=== PATIENT | female | born 1965 | race Caucasian/White ===

== ENCOUNTER 2016-08-15 05:40 | Inpatient (IN) | payer MEDICARE ==
[~2016-08-15] VITALS: Ht 172.7 cm; Wt 81.7 kg
[~2016-08-15 05:40] MED LIST: AMLO5TAB4 PO; APIX2.5T PO; ASPI325T4 PO; ATROVENT HFA12.9 GM IH; CARV12.5 PO; CARV12.52 PO; CARV25TA2 PO; CIPR250T PO; CIPR250T30 PO; DARB60DI SQ; DOCU100C5 PO; FENO145T PO; FLUC100T4 PO; FLUT1DIS IH; FURO80TA3 PO; INSU100C4 SQ; INSU100I13 SQ; INSU100V8 SQ; LIPITOR80 MG PO; METO10TA81 PO; MORP15TA3 PO; MULT-237 PO; NIAC500T9 PO; NITR0.4T SL; ONDA4TAB10 PO; OXYC-250 PO; OXYC10TA PO; SEVE800T9 PO; SUCR1TAB PO; TICA90TA PO; TRAM50TA PO; [UNRECOGNIZED DRUG - OTHER]
[2016-08-15] MEDS ORDERED: ONDANSETRON PF 4 MG/2 ML VIAL. IV ONE (06:30)
[2016-08-15] MEDS ORDERED: fentaNYL PF VIAL 100 MCG/2 ML VIAL IV ONE (06:30)
[2016-08-15 06:38] LABS: BASO % 0 % (0-3); EOS % 4 % (0-3); HEMATOCRIT 34.9 % (36.0-47.0); HEMOGLOBIN 12.2 g/dL (12.0-15.5); LYMPH # 1.5 x10^3/uL (1.0-4.8); LYMPH % 10 % (24-48); MEAN CORPUSCULAR HEMOGLOBIN 32 pg (25-35); MEAN CORPUSCULAR HGB CONC 35 g/dL (31-37); MEAN CORPUSCULAR VOLUME 93 fL (79-100); MONO % 5 % (0-9); NEUT % 81 % (31-73); PLATELET COUNT 437 x10^3/uL (140-400); RED BLOOD COUNT 3.78 x10^6/uL (3.50-5.40); RED CELL DISTRIBUTION WIDTH 13.8 % (11.5-14.5); WHITE BLOOD COUNT 15.5 x10^3/uL (4.0-11.0)
--- NOTE | 2016-08-15 06:44 | EKG ---
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
[2016-08-15 06:46] LABS: CALCIUM 9.6 mg/dL (8.5-10.1); CREATININE 5.5 mg/dL (0.6-1.0); GFR 8.2; POTASSIUM 4.1 mmol/L (3.5-5.1)
[2016-08-15 06:48] LABS: C-REACTIVE PROTEIN 21.4 mg/L (0-3.3)
--- NOTE | 2016-08-15 07:23 | RAD ---
Indication ulcer and swelling. AP oblique and lateral views of the right foot were obtained. Note is made of a previous examination 12/04/2014. Amputation associated with the second and third metatarsals is noted similar to the previous exam. There has been some bony loss associated with the tuft of the first digit. This may reflect underlying infection, osteomyelitis. Soft tissue defect associated with the first digit is noted. Diffuse soft tissue swelling of the foot is additionally noted. IMPRESSION: Diffuse soft tissue swelling. Chronic surgical changes. Partial resorption of the tuft of the first digit when compared to an exam 12/04/2014. Underlying infection is not excluded
--- NOTE | 2016-08-15 08:21 | PHYS DOC ---
Past Medical History Past Medical History: Diabetes-Type I, Heart Disease, Hypertension, CT, Renal Failure Additional Past Medical Histor: 11 CT'S, VRE, MRSA Past Surgical History: Coronary Bypass Surgery, Hysterectomy, Lumbar Laminectomy, Other Additional Past Surgical Histo: bka blabber sling ,BRAIN SURGERY,X 4 CARDIAC STENTS, R arm graft & fistula Alcohol Use: None Drug Use: None Adult General Chief Complaint Chief Complaint: SKIN PROBLEM HPI HPI Patient is a 50 year old female who presents for 3-4 days of right foot pain, redness, toe ulceration that is gradually worsening. She was seen at outside emergency Department yesterday and given antibiotics for diabetic foot ulcer ( clindamycin and levofloxacin; she was given Rocephin prior to discharge). Since starting these oral antibiotics, she has multiple episodes of nausea and vomiting. Thus, she came here for evaluation due to outpatient management failure. States she has developed headache and ringing in her ears after vomiting, that are both improving at this time. She is a dialysis patient and missed her session yesterday due to hospital evaluation and not feeling well. She denies fever or chills, no injury, rash, fatigue, chest pain, dyspnea, abdominal pain. Review of Systems Review of Systems Constitutional: Denies fever or chills [] Eyes: Denies change in visual acuity, redness, or eye pain [] HENT: Denies nasal congestion or sore throat [] Respiratory: Denies cough or shortness of breath [] Cardiovascular: No additional information not addressed in HPI [] GI: Denies abdominal pain, nausea, vomiting, bloody stools or diarrhea [] : Denies dysuria or hematuria [] Musculoskeletal: Denies back pain [] Integument: Denies rash [] Neurologic: Denies focal weakness or sensory changes [] Endocrine: Denies polyuria or polydipsia [] Current Medications Current Medications Current Medications Medications (Trade) Dose Ordered Sig/Martin Start Time Stop Time Status Last Admin Dose Admin Fentanyl Citrate (Fentanyl 2ml Vial) 50 mcg 1X ONCE 08/15/16 06:30 08/15/16 06:31 DC 08/15/16 07:01 50 MCG Ondansetron HCl (Zofran) 4 mg 1X ONCE 08/15/16 06:30 08/15/16 06:31 DC 08/15/16 06:57 4 MG Allergies Allergies Allergies Coded Allergies Type Severity Reaction Last Updated Verified Sulfa (Sulfonamide Antibiotics) Allergy Intermediate 08/09/15 Yes meropenem Allergy Intermediate 08/09/15 Yes piperacillin Allergy Intermediate Rash 08/09/15 Yes strawberry Allergy Intermediate 08/09/15 Yes tazobactam Allergy Intermediate 08/09/15 Yes I S O L A T I O N *CONTACT* Allergy Unknown 01/08/16 Yes Physical Exam Physical Exam Constitutional: Well developed, well nourished, no acute distress, non-toxic appearance. [] HENT: Normocephalic, atraumatic, bilateral external ears normal, oropharynx moist, nose normal. [] Eyes: PERRLA, EOMI. [] Neck: Normal range of motion, supple. [] Cardiovascular:Heart rate regular rhythm [] Lungs & Thorax: Bilateral breath sounds clear to auscultation [] Abdomen: Bowel sounds normal, soft, no tenderness. [] Skin: Warm, dry, no erythema, no rash. [] Back: Normal range of motion. [] Extremities: Right lower extremity with surgically missing second and third toes ; 1 cm circular ulcerative wound to IP of great toe and crusted lesion to the tip of great toe with redness and tenderness to great toe and medial midfoot, no induration/fluctuance/crepitance.; Can flex/ex toes; Can dorsiflex/plantar flex ankle; No medial or lateral malleolar tenderness; SILT; dp pulses equal bilaterally Neurologic: Alert and oriented X 3, normal motor function, normal sensory function, no focal deficits noted. [] Psychologic: Affect normal, judgement normal, mood normal. [] Current Patient Data Vital Signs Vital Signs Date Time Temp Pulse Resp B/P Pulse Ox O2 Delivery O2 Flow Rate FiO2 08/15/16 07:01 20 98 Room Air 08/15/16 05:43 98.5 99 153/70 98.5 Lab Values Laboratory Tests Test 08/15/16 06:26 White Blood Count 15.5x10^3/uL (4.0-11.0) H Red Blood Count 3.78x10^6/uL (3.50-5.40) Hemoglobin 12.2g/dL (12.0-15.5) Hematocrit 34.9% (36.0-47.0) L Mean Corpuscular Volume 93fL (79-100) Mean Corpuscular Hemoglobin 32pg (25-35) Mean Corpuscular Hemoglobin Concent 35g/dL (31-37) Red Cell Distribution Width 13.8% (11.5-14.5) Platelet Count 437x10^3/uL (140-400) H Neutrophils (%) (Auto) 81% (31-73) H Lymphocytes (%) (Auto) 10% (24-48) L Monocytes (%) (Auto) 5% (0-9) Eosinophils (%) (Auto) 4% (0-3) H Basophils (%) (Auto) 0% (0-3) Neutrophils # (Auto) 12.6x10^3uL (1.8-7.7) H Lymphocytes # (Auto) 1.5x10^3/uL (1.0-4.8) Monocytes # (Auto) 0.8x10^3/uL (0.0-1.1) Eosinophils # (Auto) 0.6x10^3/uL (0.0-0.7) Basophils # (Auto) 0.0x10^3/uL (0.0-0.2) Segmented Neutrophils % 81% (35-66) H Band Neutrophils % 1% (0-9) Lymphocytes % 12% (24-48) L Monocytes % 3% (0-10) Eosinophils % 3% (0-5) Platelet Estimate Adequate (ADEQUATE) Erythrocyte Sedimentation Rate 81 (0-25) H Sodium Level 138mmol/L (136-145) Potassium Level 4.1mmol/L (3.5-5.1) Chloride Level 94mmol/L (98-107) L Carbon Dioxide Level 34mmol/L (21-32) H Anion Gap 10 (6-14) Blood Urea Nitrogen 45mg/dL (7-20) H Creatinine 5.5mg/dL (0.6-1.0) H Estimated GFR (Cockcroft-Gault) 8.2 Glucose Level 127mg/dL (70-99) H Calcium Level 9.6mg/dL (8.5-10.1) C-Reactive Protein, Quantitative 21.4mg/L (0-3.3) H Laboratory Tests 08/15/16 06:26 Laboratory Tests 08/15/16 06:26 EKG EKG EKG as interpreted by me as normal sinus rhythm, rate 86, no ST-T changes, normal intervals, no ectopy Radiology/Procedures Radiology/Procedures X-ray right foot as interpreted by me showing bony changes to great toe with soft tissue defect concerning for osteomyelitis Course & Med Decision Making Course & Med Decision Making Pertinent Labs and Imaging studies reviewed. (See chart for details) Electrolytes are unremarkable, however has elevated white blood cell count. X- ray shows bony changes concerning for osteomyelitis. Will admit for IV antibiotics and surgical evaluation. Discussed case with Dr. Delgadillo, who will admit. Dragon Disclaimer Dragon Disclaimer This electronic medical record was generated, in whole or in part, using a voice recognition dictation system. Departure Departure Impression: Primary Impression: Diabetic foot ulcer with osteomyelitis Additional Impression: End-stage renal disease on hemodialysis Disposition: ADMITTED INPATIENT Condition: STABLE Referrals: MAGDA ARROYO MD (PCP) Problem Qualifiers Fred VALENZUELA MD Aug 15, 2016 08:21
[2016-08-15] MEDS ORDERED: VANCOMYCIN PER PHARMACY MC PRN (08:30)
[2016-08-15] MEDS ORDERED: CLINDAMYCIN 900MG PREMIX 50 ML IV ONE (08:30)
[2016-08-15] MEDS ORDERED: LEVOFLOXACIN PER PHARMACY MC PRN ×2 (08:30→14:30)
[2016-08-15] MEDS ORDERED: ACETAMINOPHEN 325 MG TABLET. PO PRN (08:30)
[2016-08-15] MEDS ORDERED: VANCOMYCIN 2 GM in IV NORMAL SALINE 500ML BAG 500 ML IV ONE (09:00)
[2016-08-15] MEDS: METRONIDAZOLE 500mg PREMIX 100 ML IV SCH ×2 (09:08→22:02)
[2016-08-15 09:09] LABS: % EOS 3 % (0-5); PLT ESTIMATE ADEQUATE (ADEQUATE)
[2016-08-15 10:45] VITALS: BP 134/61
[2016-08-15] MEDS: fentaNYL PF VIAL 100 MCG/2 ML VIAL IV PRN ×6 (10:53→22:39)
[2016-08-15] MEDS ORDERED: CLINDAMYCIN 900MG PREMIX 50 ML IV SCH (14:00)
--- NOTE | 2016-08-15 14:28 | PDOC2 ---
CONSULT Date of Consult Date of Consult DATE: 08/15/16 TIME: 14:24 Reason for Consult Reason for Consult: ESRD Referring Physician Referring Physician: Elie Identification/Chief Complaint Chief Complaint Toe infecton Problems: Source Source: Chart review, Patient History of Present Illness Reason for Visit: as dictated Past Medical History Cardiovascular: CAD, CHF, HTN, MO, Hyperlipidemia Pulmonary: Asthma, COPD, Pneumonia CENTRAL NERVOUS SYSTEM: Other GI: GERD Heme/Onc: Anemia NOS Hepatobiliary: No pertinent hx Psych: No pertinent hx Musculoskeletal: Osteoarthritis Rheumatologic: Fibromyalgia Infectious disease: Other Renal/: Chronic renal failure Endocrine: Diabetes Past Surgical History Past Surgical History: CABG, Hysterectomy, Other Family History Family History: Diabetes, Hypertension Social History ALCOHOL: none Drugs: None Lives: with Family Current Problem List Problem List Problems Medical Problems: (1) Diabetic foot ulcer with osteomyelitis Status: Acute (2) End-stage renal disease on hemodialysis Status: Acute Current Medications Current Medications Current Medications Fentanyl Citrate (Fentanyl 2ml Vial) 50 mcg 1X ONCE IV Last administered on 07:01; Start 08/15/16 at 06:30; Stop 08/15/16 at 06:31; Status DC Ondansetron HCl (Zofran) 4 mg 1X ONCE IV Last administered on 08/15/16 06:57 ; Start 08/15/16 at 06:30; Stop 08/15/16 at 06:31; Status DC Ondansetron HCl (Zofran) 4 mg PRN Q8HRS PRN IV NAUSEA/VOMITING; Start 08/15/16 at 08:30; Stop 08/16/16 at 08:29 Fentanyl Citrate (Fentanyl 2ml Vial) 50 mcg PRN Q2HR PRN IV PAIN Last administered on 08/15/16 14:16; Start 08/15/16 at 08:30; Stop 08/16/16 at 08:29 Acetaminophen (Tylenol) 650 mg PRN Q4HRS PRN PO FEVER Last administered on 08/15 13:36; Start 08/15/16 at 08:30; Stop 08/16/16 at 08:29 Levofloxacin/ Dextrose 1 each 1 each PRN DAILY PRN MC SEE COMMENTS; Start 08/15 at 08:30 Clindamycin Phosphate 50 ml @ 100 mls/hr Q8HRS IV ; Start 08/15/16 at 14:00; Stop 08/15/16 at 14:00; Status DC Levofloxacin/ Dextrose 100 ml @ 100 mls/hr Q48H IV Last administered on 12:34; Start 08/15/16 at 09:00 Clindamycin Phosphate (Cleocin 900mg Premix) 50 ml @ 100 mls/hr 1X ONCE IV ; Start 08/15/16 at 08:30; Stop 08/15/16 at 08:32; Status DC Vancomycin HCl 1 each 1 each PRN DAILY PRN MC SEE COMMENTS; Start 08/15/16 at 08:30 Metronidazole 100 ml @ 100 mls/hr Q12HR IV Last administered on 08/15/16 09: 08; Start 08/15/16 at 09:00 Vancomycin HCl/ Sodium Chloride (Iv Sodium Chloride 0.9% 500ml Bag) 500 ml @ 250 mls/hr 1X ONCE IV Last administered on 08/15/16 09:09; Start 08/15/16 at 09:00; Stop 08/15/16 at 10:59; Status DC Active Scripts Active Eliquis (Apixaban) 2.5 Mg Tablet 2.5 Mg PO BID Morphine Sulfate Er (Morphine Sulfate) 15 Mg Tablet.er 15 Mg PO BID Reported Fluconazole 100 Mg Tablet 150 Mg PO WEEKLY Ciprofloxacin Hcl 250 Mg Tablet 250 Mg PO BID Tramadol Hcl 50 Mg Tablet 50 Mg PO Q6H PRN Percocet 10-325 Mg Tablet (Oxycodone/Acetaminophen) 1 Each Tablet 1-2 Tab PO PRN Q6HRS PRN Brilinta (Ticagrelor) 90 Mg Tablet 90 Mg PO BID Tricor (Fenofibrate Nanocrystallized) 145 Mg Tablet 1 Tab PO HS Lipitor (Atorvastatin Calcium) 80 Mg Tablet 80 Mg PO HS Niacin 500 Mg Tablet 500 Mg PO HS Lantus (Insulin Glargine,Hum.rec.anlog) 100 Unit/1 Ml Vial 10 Unit SQ HS PRN only if blood sugar >150 at bedtime. Novolog (Insulin Aspart) 100 Unit/1 Ml Cartridge 0 SQ TIDAC sliding scale Renvela (Sevelamer Carbonate) 800 Mg Tablet 800 Mg PO TIDWMEALS Take with meals Aspirin 325 Mg Tablet 325 Mg PO DAILY Furosemide 80 Mg Tablet 80 Mg PO BID Docusate Sodium 100 Mg Capsule 1 Cap PO PRN PRN Nitrostat (Nitroglycerin) 0.4 Mg Tab.subl 0.4 Mg SL PRN Q5MIN PRN Take as needed for chest pain Allergies Allergies: Coded Allergies: Sulfa (Sulfonamide Antibiotics) (Verified Allergy, Intermediate, 08/09/15) meropenem (Verified Allergy, Intermediate, 08/09/15) Tolerates ancef piperacillin (Verified Allergy, Intermediate, Rash, 08/09/15) Tolerates ancef strawberry (Verified Allergy, Intermediate, 08/09/15) tazobactam (Verified Allergy, Intermediate, 08/09/15) I S O L A T I O N *CONTACT* (Verified Allergy, Unknown, 01/08/16) 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 ROS Review of System GEN: no Fevers no Chills EYES: no Visual Complaints ENT: no EN Drainage no Hearing deficiets CVS: no Orthopnea no CP RESP: no SOB no SAVAGE GI: no Nausea no Vomiting : no Dysuria no Urgency HEME: no easy bruising no Palp Ly Nodes NEURO no Focal Weakness no Sz PSYCH: no Suicidal Ideation no Depression SKIN: no Rashes Rt Toe wound as noted ENDO: no Polyuria or Polydipsia no Hot/Cold Intolerance MU SK: no Arthraigia no Myalgia Physical Exam Physical Exam General Appearance: Awake Alert Oriented x 3 In no Distress Eyes: VIsion Unchanged Conjunctiva Normal EN: No EN Drainage Mucous Memb. moist Neck: no JVD no JVP Supple no Thyromegaly CVS: S1 S2 soft Murmur No Gallop No Rub +2 Edema Resp: no Rales no Rhonchi no Acc. Muscle use GI: BAS +ve NO Bruit Non Tender Non Distended : no CVA tenderness; no Suprapubic Tenderness SKIN: no Rashes Breast Exam deferred; Toe wound noted Mu.Sk: Adequate ROM no Muscle Atrophy, Left BKA Heme: Unable to palpate Obvious LAD no palp Splenomegaly NEURO: Good Strength and Tone Cranial Nerves II - XII grossly intact Psych: no Depressed no Active hallucination Vital Signs Vital Signs Date Time Temp Pulse Resp B/P Pulse Ox O2 Delivery O2 Flow Rate FiO2 08/15/16 14:16 Room Air 08/15/16 10:45 97.9 77 16 134/61 99 97.9 Assessment & Plan ESRD: Current FLuid and E-lyte status does not necessitate emergent need for Dialysis. Will re-evaluate for Dialysis in am and continue on TTSat schedule. Anemia: no Epogen ordered for now (hgb > 12) Transfuse with next HD as needed. HTN: Current BP meds reviewed. See orders for changes. Bone & Mineral: follow phos and alter binder regimen as needed Discussed Plan of Care and prognosis etc. at length with pt Labs Labs Laboratory Tests Test 08/15/16 06:26 08/15/16 11:48 White Blood Count 15.5x10^3/uL (4.0-11.0) Red Blood Count 3.78x10^6/uL (3.50-5.40) Hemoglobin 12.2g/dL (12.0-15.5) Hematocrit 34.9% (36.0-47.0) Mean Corpuscular Volume 93fL (79-100) Mean Corpuscular Hemoglobin 32pg (25-35) Mean Corpuscular Hemoglobin Concent 35g/dL (31-37) Red Cell Distribution Width 13.8% (11.5-14.5) Platelet Count 437x10^3/uL (140-400) Neutrophils (%) (Auto) 81% (31-73) Lymphocytes (%) (Auto) 10% (24-48) Monocytes (%) (Auto) 5% (0-9) Eosinophils (%) (Auto) 4% (0-3) Basophils (%) (Auto) 0% (0-3) Neutrophils # (Auto) 12.6x10^3uL (1.8-7.7) Lymphocytes # (Auto) 1.5x10^3/uL (1.0-4.8) Monocytes # (Auto) 0.8x10^3/uL (0.0-1.1) Eosinophils # (Auto) 0.6x10^3/uL (0.0-0.7) Basophils # (Auto) 0.0x10^3/uL (0.0-0.2) Segmented Neutrophils % 81% (35-66) Band Neutrophils % 1% (0-9) Lymphocytes % 12% (24-48) Monocytes % 3% (0-10) Eosinophils % 3% (0-5) Platelet Estimate Adequate (ADEQUATE) Erythrocyte Sedimentation Rate 81 (0-25) Sodium Level 138mmol/L (136-145) Potassium Level 4.1mmol/L (3.5-5.1) Chloride Level 94mmol/L (98-107) Carbon Dioxide Level 34mmol/L (21-32) Anion Gap 10 (6-14) Blood Urea Nitrogen 45mg/dL (7-20) Creatinine 5.5mg/dL (0.6-1.0) Estimated GFR (Cockcroft-Gault) 8.2 Glucose Level 127mg/dL (70-99) Calcium Level 9.6mg/dL (8.5-10.1) C-Reactive Protein, Quantitative 21.4mg/L (0-3.3) Glucose (Fingerstick) 100mg/dL (70-99) Laboratory Tests Test 08/15/16 06:26 08/15/16 11:48 White Blood Count 15.5x10^3/uL (4.0-11.0) Red Blood Count 3.78x10^6/uL (3.50-5.40) Hemoglobin 12.2g/dL (12.0-15.5) Hematocrit 34.9% (36.0-47.0) Mean Corpuscular Volume 93fL (79-100) Mean Corpuscular Hemoglobin 32pg (25-35) Mean Corpuscular Hemoglobin Concent 35g/dL (31-37) Red Cell Distribution Width 13.8% (11.5-14.5) Platelet Count 437x10^3/uL (140-400) Neutrophils (%) (Auto) 81% (31-73) Lymphocytes (%) (Auto) 10% (24-48) Monocytes (%) (Auto) 5% (0-9) Eosinophils (%) (Auto) 4% (0-3) Basophils (%) (Auto) 0% (0-3) Neutrophils # (Auto) 12.6x10^3uL (1.8-7.7) Lymphocytes # (Auto) 1.5x10^3/uL (1.0-4.8) Monocytes # (Auto) 0.8x10^3/uL (0.0-1.1) Eosinophils # (Auto) 0.6x10^3/uL (0.0-0.7) Basophils # (Auto) 0.0x10^3/uL (0.0-0.2) Segmented Neutrophils % 81% (35-66) Band Neutrophils % 1% (0-9) Lymphocytes % 12% (24-48) Monocytes % 3% (0-10) Eosinophils % 3% (0-5) Platelet Estimate Adequate (ADEQUATE) Erythrocyte Sedimentation Rate 81 (0-25) Sodium Level 138mmol/L (136-145) Potassium Level 4.1mmol/L (3.5-5.1) Chloride Level 94mmol/L (98-107) Carbon Dioxide Level 34mmol/L (21-32) Anion Gap 10 (6-14) Blood Urea Nitrogen 45mg/dL (7-20) Creatinine 5.5mg/dL (0.6-1.0) Estimated GFR (Cockcroft-Gault) 8.2 Glucose Level 127mg/dL (70-99) Calcium Level 9.6mg/dL (8.5-10.1) C-Reactive Protein, Quantitative 21.4mg/L (0-3.3) Glucose (Fingerstick) 100mg/dL (70-99) Images Images IMPRESSION: Diffuse soft tissue swelling. Chronic surgical changes. Partial resorption of the tuft of the first digit when compared to an exam 12/04/2014. Underlying infection is not excluded BEAR LÓPEZ MD Aug 15, 2016 14:28
[2016-08-15] MEDS ORDERED: MAGNESIUM SULFATE 2GM 50 ML IV PRN (14:30)
[2016-08-15] MEDS ORDERED: TRAMADOL 50 MG TABLET. PO PRN (14:30)
[2016-08-15] MEDS ORDERED: NITROGLYCERIN SUBLINGUAL 0.4 MG BOTTLE OF 25. SL PRN (14:30)
[2016-08-15] MEDS ORDERED: TICAGRELOR 90 MG TABLET. PO SCH (14:30)
[2016-08-15] MEDS ORDERED: VANCOMYCIN 1.75 GM in IV NORMAL SALINE 500ML BAG 500 ML IV ONE (14:30)
[2016-08-15] MEDS ORDERED: DEXTROSE 50% 25 GM / 50ML DISP.SYRIN. IV PRN (14:30)
[2016-08-15] MEDS: VANCOMYCIN PER PHARMACY MC PRN (14:37)
--- NOTE | 2016-08-15 14:38 | PDOC1 ---
History and Physical Date of Admission Date of Admission 08/15/16 Identification/Chief Complaint Chief Complaint right foot pain Problems: Source Source: Chart review, Patient History of Present Illness History of Present Illness HPI HPI Patient is a 50 year old female who presents for 3-4 days of right foot pain. Pt left leg has got BKA, small wound chronic as per pt. Right big toe has been swollen recently, with drainage, burning pain, erythema to leg. No fever, chills. She went to [facility] yesterday, was given clinda and levoquin, then has severe N/V, diarrhea, missed her HD on . HD TTS. no N/V, diarrhea today allergic to many abx including zosyn and meropenem with bleeding rash as per pt. on lantus sometimes at night, about 10u aspart tid. Past Medical History Cardiovascular: CAD, CHF, HTN, UT, Hyperlipidemia Pulmonary: Asthma, COPD, Pneumonia CENTRAL NERVOUS SYSTEM: Other GI: GERD Heme/Onc: Anemia NOS Hepatobiliary: No pertinent hx Psych: No pertinent hx Rheumatologic: Fibromyalgia Infectious disease: Other Renal/: Chronic renal failure Endocrine: Diabetes Past Surgical History Past Surgical History: CABG, Hysterectomy, Other Family History Family History: Diabetes, Hypertension Social History Smoke: No ALCOHOL: none Drugs: None Current Problem List Problem List Problems Medical Problems: (1) Diabetic foot ulcer with osteomyelitis Status: Acute (2) End-stage renal disease on hemodialysis Status: Acute Current Medications Current Medications Current Medications Medications (Trade) Dose Ordered Sig/Martin Start Time Stop Time Status Last Admin Dose Admin Acetaminophen (Tylenol) 650 mg PRN Q4HRS PRN 08/15/16 08:30 08/16/16 08:29 08/15/16 13:36 650 MG Clindamycin Phosphate (Cleocin 900mg Premix) 50 ml @ 100 mls/hr 1X ONCE 08/15/16 08:30 08/15/16 08:32 DC Fentanyl Citrate (Fentanyl 2ml Vial) 50 mcg PRN Q2HR PRN 08/15/16 08:30 08/16/16 08:29 08/15/16 14:16 50 MCG Levofloxacin/ Dextrose 100 ml @ 100 mls/hr Q48H 08/15/16 09:00 08/15/16 12:34 100 MLS/HR Levofloxacin/ Dextrose 1 each 1 each PRN DAILY PRN 08/15/16 08:30 Metronidazole 100 ml @ 100 mls/hr Q12HR 08/15/16 09:00 08/15/16 09:08 100 MLS/HR Ondansetron HCl (Zofran) 4 mg PRN Q8HRS PRN 08/15/16 08:30 08/16/16 08:29 Vancomycin HCl 1 each 1 each PRN DAILY PRN 08/15/16 08:30 Vancomycin HCl/ Sodium Chloride (Iv Sodium Chloride 0.9% 500ml Bag) 500 ml @ 250 mls/hr 1X ONCE 08/15/16 09:00 08/15/16 10:59 DC 08/15/16 09:09 250 MLS/HR Allergies Allergies Allergies Coded Allergies Type Severity Reaction Last Updated Verified Sulfa (Sulfonamide Antibiotics) Allergy Intermediate 08/09/15 Yes meropenem Allergy Intermediate 08/09/15 Yes piperacillin Allergy Intermediate Rash 08/09/15 Yes strawberry Allergy Intermediate 08/09/15 Yes tazobactam Allergy Intermediate 08/09/15 Yes I S O L A T I O N *CONTACT* Allergy Unknown 01/08/16 Yes ROS Review of System CONSTITUTIONAL: No fever or chills EYES: No recent changes SKIN: No rash or itching CARDIOVASCULAR: No chest pain, syncope, palpitations, or edema RESPIRATORY: No SOB or cough GASTROINTESTINAL: No nausea, vomiting or abdominal pain NEUROLOGICAL: No headaches or weakness ENDOCRINE: No cold or heat intolerance GENITOURINARY: No urgency or frequency of urination MUSCULOSKELETAL: No back pain or joint pain LYMPHATICS: No enlarged lymph nodes PSYCHIATRIC: No anxiety or depression Physical Exam Physical Exam GEN.: No apparent distress. Alert and oriented. HEENT: Head is normocephalic, atraumatic NECK: Supple. LUNGS: Clear to auscultation. HEART: RRR, S1, S2 present. Peripheral pulses intact ABDOMEN: Soft, nontender. Positive bowel sounds. EXTREMITIES: Without any cyanosis. left leg BKA. right foot big toes has an open wound, swelling ,erythema till mid leg, tenderness. NEUROLOGIC: Normal speech, normal tone PSYCHIATRIC: Normal affect, normal mood. SKIN: No ulcerations Vitals Vitals Vital Signs Date Time Temp Pulse Resp B/P Pulse Ox O2 Delivery O2 Flow Rate FiO2 08/15/16 14:16 Room Air 4/21/17 10:45 97.9 77 16 134/61 99 97.9 Labs Labs Laboratory Tests Test 08/15/16 06:26 08/15/16 11:48 White Blood Count 15.5x10^3/uL (4.0-11.0) Red Blood Count 3.78x10^6/uL (3.50-5.40) Hemoglobin 12.2g/dL (12.0-15.5) Hematocrit 34.9% (36.0-47.0) Mean Corpuscular Volume 93fL (79-100) Mean Corpuscular Hemoglobin 32pg (25-35) Mean Corpuscular Hemoglobin Concent 35g/dL (31-37) Red Cell Distribution Width 13.8% (11.5-14.5) Platelet Count 437x10^3/uL (140-400) Neutrophils (%) (Auto) 81% (31-73) Lymphocytes (%) (Auto) 10% (24-48) Monocytes (%) (Auto) 5% (0-9) Eosinophils (%) (Auto) 4% (0-3) Basophils (%) (Auto) 0% (0-3) Neutrophils # (Auto) 12.6x10^3uL (1.8-7.7) Lymphocytes # (Auto) 1.5x10^3/uL (1.0-4.8) Monocytes # (Auto) 0.8x10^3/uL (0.0-1.1) Eosinophils # (Auto) 0.6x10^3/uL (0.0-0.7) Basophils # (Auto) 0.0x10^3/uL (0.0-0.2) Segmented Neutrophils % 81% (35-66) Band Neutrophils % 1% (0-9) Lymphocytes % 12% (24-48) Monocytes % 3% (0-10) Eosinophils % 3% (0-5) Platelet Estimate Adequate (ADEQUATE) Erythrocyte Sedimentation Rate 81 (0-25) Sodium Level 138mmol/L (136-145) Potassium Level 4.1mmol/L (3.5-5.1) Chloride Level 94mmol/L (98-107) Carbon Dioxide Level 34mmol/L (21-32) Anion Gap 10 (6-14) Blood Urea Nitrogen 45mg/dL (7-20) Creatinine 5.5mg/dL (0.6-1.0) Estimated GFR (Cockcroft-Gault) 8.2 Glucose Level 127mg/dL (70-99) Calcium Level 9.6mg/dL (8.5-10.1) C-Reactive Protein, Quantitative 21.4mg/L (0-3.3) Glucose (Fingerstick) 100mg/dL (70-99) Laboratory Tests Test 08/15/16 06:26 08/15/16 11:48 White Blood Count 15.5x10^3/uL (4.0-11.0) Red Blood Count 3.78x10^6/uL (3.50-5.40) Hemoglobin 12.2g/dL (12.0-15.5) Hematocrit 34.9% (36.0-47.0) Mean Corpuscular Volume 93fL (79-100) Mean Corpuscular Hemoglobin 32pg (25-35) Mean Corpuscular Hemoglobin Concent 35g/dL (31-37) Red Cell Distribution Width 13.8% (11.5-14.5) Platelet Count 437x10^3/uL (140-400) Neutrophils (%) (Auto) 81% (31-73) Lymphocytes (%) (Auto) 10% (24-48) Monocytes (%) (Auto) 5% (0-9) Eosinophils (%) (Auto) 4% (0-3) Basophils (%) (Auto) 0% (0-3) Neutrophils # (Auto) 12.6x10^3uL (1.8-7.7) Lymphocytes # (Auto) 1.5x10^3/uL (1.0-4.8) Monocytes # (Auto) 0.8x10^3/uL (0.0-1.1) Eosinophils # (Auto) 0.6x10^3/uL (0.0-0.7) Basophils # (Auto) 0.0x10^3/uL (0.0-0.2) Segmented Neutrophils % 81% (35-66) Band Neutrophils % 1% (0-9) Lymphocytes % 12% (24-48) Monocytes % 3% (0-10) Eosinophils % 3% (0-5) Platelet Estimate Adequate (ADEQUATE) Erythrocyte Sedimentation Rate 81 (0-25) Sodium Level 138mmol/L (136-145) Potassium Level 4.1mmol/L (3.5-5.1) Chloride Level 94mmol/L (98-107) Carbon Dioxide Level 34mmol/L (21-32) Anion Gap 10 (6-14) Blood Urea Nitrogen 45mg/dL (7-20) Creatinine 5.5mg/dL (0.6-1.0) Estimated GFR (Cockcroft-Gault) 8.2 Glucose Level 127mg/dL (70-99) Calcium Level 9.6mg/dL (8.5-10.1) C-Reactive Protein, Quantitative 21.4mg/L (0-3.3) Glucose (Fingerstick) 100mg/dL (70-99) VTE Prophylaxis Ordered VTE Prophylaxis Devices: No VTE Pharmacological Prophylaxi: Yes Assessment/Plan Assessment/Plan 1. right foot cellulitis/osteo 2. left leg BKA 3. dm2 4. htn 5. H/O CAD post CABG 6. ESRD on HD tts plan: renal, id, ortho consult rakel butts vanco for now MRI right foot to rule out osteo, may need sx ssi cont home meds on eliquis, if plan sx, need hold QUIN BARRY MD Aug 15, 2016 14:38
[2016-08-15] MEDS ORDERED: FOLI0.8T3 PO (14:50)
[2016-08-15] MEDS ORDERED: CARV12.52 PO ×2 (14:50)
[2016-08-15] MEDS ORDERED: auryxia PO (14:50)
[2016-08-15 15:00] VITALS: BP 139/48
[2016-08-15] MEDS ORDERED: FLUCONAZOLE 100 MG TABLET. PO SCH (15:00)
--- NOTE | 2016-08-15 15:55 | RAD ---
PROCEDURE MR of the right forefoot HISTORY Open wound of the right 1st toe. 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 TECHNIQUE Routine multiplanar sequences are obtained. COMPARISON None FINDINGS There is absence of the 2nd and 3rd toes, at the level of the metatarsal shafts, presumably due to prior amputation. There is moderate motion degradation on the study. Bone marrow edema signal identified within the head and distal shaft of the proximal 1st phalanx. There is corresponding loss of fatty marrow signal on the T1 weighted images. Findings are compatible with osteomyelitis. Mild marrow edema identified at the base of the distal 1st phalanx, but without corresponding T1 signal loss, may therefore just represent reactive marrow edema. Mild fluid at the 1st IP joint, possibly infected. Visualized tendons are intact. No significant tendon sheath fluid. There is soft tissue edema and swelling of the foot, particularly at the forefoot. No evidence of large organized abscess although lack of intravenous contrast could limit detection of a smaller fluid collection. IMPRESSION 1. Findings are compatible with osteomyelitis involving the distal shaft and head of the proximal 1st phalanx. Marrow edema at the base of the distal 1st phalanx may just be reactive. 2. Mild 1st IP joint fluid, uncertain sterility. Electronically signed by: Felipe Resendez MD (Aug 15, 2016 15:54:27)
[2016-08-15] MEDS: MORPHINE ER 15 MG TABLET.ER PO SCH ×2 (16:17→22:49)
[2016-08-15] MEDS: FUROSEMIDE 80 MG TABLET. PO SCH (16:18)
[2016-08-15] MEDS: FLUCONAZOLE 100 MG TABLET. PO SCH (16:18)
[2016-08-15] MEDS: GENTAMICIN PER PHARMACY. MC PRN (16:24)
--- NOTE | 2016-08-15 16:26 | PDOC ---
ORTHO PROGRESS NOTES Vitals Vital Signs Date Time Temp Pulse Resp B/P Pulse Ox O2 Delivery O2 Flow Rate FiO2 08/15/16 15:00 98.4 79 18 139/48 98 Room Air 98.4 Labs Laboratory Tests Test 08/15/16 06:26 08/15/16 11:48 White Blood Count 15.5x10^3/uL (4.0-11.0) Red Blood Count 3.78x10^6/uL (3.50-5.40) Hemoglobin 12.2g/dL (12.0-15.5) Hematocrit 34.9% (36.0-47.0) Mean Corpuscular Volume 93fL (79-100) Mean Corpuscular Hemoglobin 32pg (25-35) Mean Corpuscular Hemoglobin Concent 35g/dL (31-37) Red Cell Distribution Width 13.8% (11.5-14.5) Platelet Count 437x10^3/uL (140-400) Neutrophils (%) (Auto) 81% (31-73) Lymphocytes (%) (Auto) 10% (24-48) Monocytes (%) (Auto) 5% (0-9) Eosinophils (%) (Auto) 4% (0-3) Basophils (%) (Auto) 0% (0-3) Neutrophils # (Auto) 12.6x10^3uL (1.8-7.7) Lymphocytes # (Auto) 1.5x10^3/uL (1.0-4.8) Monocytes # (Auto) 0.8x10^3/uL (0.0-1.1) Eosinophils # (Auto) 0.6x10^3/uL (0.0-0.7) Basophils # (Auto) 0.0x10^3/uL (0.0-0.2) Segmented Neutrophils % 81% (35-66) Band Neutrophils % 1% (0-9) Lymphocytes % 12% (24-48) Monocytes % 3% (0-10) Eosinophils % 3% (0-5) Platelet Estimate Adequate (ADEQUATE) Erythrocyte Sedimentation Rate 81 (0-25) Sodium Level 138mmol/L (136-145) Potassium Level 4.1mmol/L (3.5-5.1) Chloride Level 94mmol/L (98-107) Carbon Dioxide Level 34mmol/L (21-32) Anion Gap 10 (6-14) Blood Urea Nitrogen 45mg/dL (7-20) Creatinine 5.5mg/dL (0.6-1.0) Estimated GFR (Cockcroft-Gault) 8.2 Glucose Level 127mg/dL (70-99) Calcium Level 9.6mg/dL (8.5-10.1) C-Reactive Protein, Quantitative 21.4mg/L (0-3.3) Glucose (Fingerstick) 100mg/dL (70-99) Laboratory Tests Test 08/15/16 06:26 08/15/16 11:48 White Blood Count 15.5x10^3/uL (4.0-11.0) Red Blood Count 3.78x10^6/uL (3.50-5.40) Hemoglobin 12.2g/dL (12.0-15.5) Hematocrit 34.9% (36.0-47.0) Mean Corpuscular Volume 93fL (79-100) Mean Corpuscular Hemoglobin 32pg (25-35) Mean Corpuscular Hemoglobin Concent 35g/dL (31-37) Red Cell Distribution Width 13.8% (11.5-14.5) Platelet Count 437x10^3/uL (140-400) Neutrophils (%) (Auto) 81% (31-73) Lymphocytes (%) (Auto) 10% (24-48) Monocytes (%) (Auto) 5% (0-9) Eosinophils (%) (Auto) 4% (0-3) Basophils (%) (Auto) 0% (0-3) Neutrophils # (Auto) 12.6x10^3uL (1.8-7.7) Lymphocytes # (Auto) 1.5x10^3/uL (1.0-4.8) Monocytes # (Auto) 0.8x10^3/uL (0.0-1.1) Eosinophils # (Auto) 0.6x10^3/uL (0.0-0.7) Basophils # (Auto) 0.0x10^3/uL (0.0-0.2) Segmented Neutrophils % 81% (35-66) Band Neutrophils % 1% (0-9) Lymphocytes % 12% (24-48) Monocytes % 3% (0-10) Eosinophils % 3% (0-5) Platelet Estimate Adequate (ADEQUATE) Erythrocyte Sedimentation Rate 81 (0-25) Sodium Level 138mmol/L (136-145) Potassium Level 4.1mmol/L (3.5-5.1) Chloride Level 94mmol/L (98-107) Carbon Dioxide Level 34mmol/L (21-32) Anion Gap 10 (6-14) Blood Urea Nitrogen 45mg/dL (7-20) Creatinine 5.5mg/dL (0.6-1.0) Estimated GFR (Cockcroft-Gault) 8.2 Glucose Level 127mg/dL (70-99) Calcium Level 9.6mg/dL (8.5-10.1) C-Reactive Protein, Quantitative 21.4mg/L (0-3.3) Glucose (Fingerstick) 100mg/dL (70-99) Assessment and Plan MRI reviewed. R great toe osteo, R foot cellulitis OR 8am tomorrow UZMA JAIMES II, MD Aug 15, 2016 16:26
[2016-08-15] MEDS: INSULIN ASPART 300 UNITS/3 ML INSULN.PEN SQ SCH (17:00)
[2016-08-15] MEDS ORDERED: GENTAMICIN SULFATE 180 MG in IV NORMAL SALINE 100ML 100 ML IV ONE (17:00)
[2016-08-15] MEDS ORDERED: SEVELAMER CARBONATE 800 MG TABLET. PO SCH (17:00)
[2016-08-15] MEDS: SEVELAMER CARBONATE 800 MG TABLET. PO SCH (17:48)
[2016-08-15] MEDS: CARVEDILOL 12.5 MG TABLET. PO SCH (17:48)
--- NOTE | 2016-08-15 19:12 | OP ---
DATE OF SURGERY: 08/15/2016 REFERRING PROVIDER: Dr. Delgadillo. TEACHER THEATER ARTS PROVIDER: Dr. Vikas Jaimes. REASON FOR CONSULTATION: Right great toe cellulitis and osteomyelitis. CHIEF COMPLAINT: Right foot pain. HISTORY OF PRESENT ILLNESS: This is a very pleasant 50-year-old, diabetic on hemodialysis, who is well known to me from left below-knee amputation a while ago who developed worsening pain, redness, and swelling with drainage 3-4 days ago at her right great toe. Wound developed on the top of her toe and has since progressed, and now her whole toe and most of the dorsum of her foot is swollen and painful. She tells me that the pain has been getting a little bit worse which prompted her to come into the Emergency Department to seek care. She cannot think of any one particular traumatic event that triggered this but thinks that it is attributable to difficulty with shoe-wear considering her history of amputation of her middle two toes. She otherwise tells me she has been doing well and has no complaints or concerns with her left lower extremity. The pain at her right foot is worse with any attempted weightbearing. She has been feeling a lot more rundown lately. She did miss her recent hemodialysis treatment because of this problem. She has had some nausea as well as diarrhea recently as well. ALLERGIES: SULFA, MEROPENEM, PIPERACILLIN, STRAWBERRY, TAZOBACTAM. MEDICATIONS: Reviewed. Please see MRAD. REVIEW OF SYSTEMS: A 12-point review of systems is negative except as per HPI. PAST MEDICAL HISTORY: Chronic kidney disease, on dialysis; coronary artery disease, CHF, hypertension, history of MS, hyperlipidemia, peripheral vascular disease, asthma, COPD, history of pneumonia and anemia, fibromyalgia, and GERD. PAST SURGICAL HISTORY: CABG, hysterectomy, left below-knee amputation, and right lower extremity second and third toe amputations. SOCIAL HISTORY: No alcohol or tobacco. FAMILY HISTORY: Positive for diabetes and heart disease. PHYSICAL EXAMINATION: VITAL SIGNS: Reviewed. T-max 98.4, BP 139/48, respiratory rate 18, pulse 79, and O2 saturations is 98% on room air. GENERAL: The patient is alert and oriented. Her speech is clear. Mood and affect are appropriate. HEENT: Head normocephalic, atraumatic. Extraocular muscles are intact. CARDIOVASCULAR: Regular rate and rhythm. She does have mild edema to mid tibial region. LUNGS: Respirations are unlabored with symmetric chest rise. ABDOMEN: Soft, nondistended. 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 Examination of her bilateral lower extremities reveals a left below-knee amputation. Stump is in good shape. Examination of right lower extremity reveals edema and erythema most notable at her right great toe and dorsum of her foot. There is some intense swelling and fluctuance at the dorsum of her foot as well. There is a dime-sized open wound at approximately over her IP joint of her right toe. She has a large irregularly-shaped nail that is growing into the skin distally at the lateral border of her great toe. Her toe is swollen circumferentially and tender to palpation. I am not able to express any purulence, but there is foul odor. She does have a callosity under the base of her first metatarsal head, but no open wound there. Her right dorsalis pedis is difficult to palpate secondary to the edema right now. Imaging was reviewed. X-rays and MRI were interpreted by myself. The reports of these studies were also reviewed. She has evidence of osteomyelitis at P1 of her right great toe with a lot of edema in the dorsum of her foot as well. IMPRESSION: 1. Right great toe osteomyelitis. 2. Right great toe wound. 3. Right lower extremity cellulitis. PLAN: She has been admitted to the Hospitalist Service and started on antibiotics. Nephrology has already evaluated the patient. We will plan on surgery tomorrow morning, and I discussed the surgical procedure, and the risks, benefits, and alternatives to this. Given the importance of the great toe in ambulation, I did discuss with her that I would prefer to be more hesitant to take the toe and try irrigation and debridement with bone biopsy and culture and likely wound VAC application and use amputation only as a last resort. She is agreeable to this plan. VIKAS JAIMES MD DR: EBEN/guillermo JOB#: [id number] / [id number] VERENA
[2016-08-15 19:20] VITALS: BP 128/67
[2016-08-15] MEDS: ONDANSETRON PF 4 MG/2 ML VIAL. IV PRN (20:25)
[2016-08-15] MEDS: TICAGRELOR 90 MG TABLET. PO SCH (20:26)
[2016-08-15] MEDS: FENOFIBRATE,MICRONIZED 134 MG CAPSULE PO SCH (20:26)
[2016-08-15] MEDS: NIACIN ER 500 MG TABLET.ER PO SCH (20:26)
[2016-08-15] MEDS: ATORVASTATIN CALCIUM 40 MG TABLET. PO SCH (20:26)
[2016-08-15] MEDS: OXYCODONE/APAP 10/325 TABLET. PO PRN (20:27)
[2016-08-15 23:29] VITALS: BP 141/75
[2016-08-16] VITALS (12 sets, daily range): BP systolic 137–195; BP diastolic 54–95
[2016-08-16] MEDS: fentaNYL PF VIAL 100 MCG/2 ML VIAL IV PRN ×11 (01:10→22:25)
--- NOTE | 2016-08-16 01:43 | CONS ---
DATE OF CONSULTATION: PRIMARY PHYSICIAN: Dr. Delgadillo. REASON FOR CONSULTATION: ESRD dialysis. HISTORY OF PRESENT ILLNESS: The patient is a 50-year-old female with longstanding diabetes and associated ESRD. She does see hemodialysis on Thursday, , and Thursday. She noted right toe pain as well as ulceration with worsening edema, was seen at ____ ER, was given oral antibiotics; however, her edema got worse so she presented here for further evaluation and is now admitted for IV antibiotics. X-ray of her toe shows possible osteomyelitis. Sed rate is 81. She dialyzes on Tuesdays, , Saturdays, and has not missed dialysis and we were consulted for the same. For rest of details, see electronic records. BEAR LÓPEZ MD DR: KATI/guillermo JOB#: [id number] / [id number]
[2016-08-16] MEDS: ONDANSETRON PF 4 MG/2 ML VIAL. IV PRN ×2 (03:34→17:38)
[2016-08-16 05:27] LABS: BASO # 0.1 x10^3/uL (0.0-0.2); BASO % 1 % (0-3); EOS % 5 % (0-3); HEMOGLOBIN 11.8 g/dL (12.0-15.5); LYMPH # 1.1 x10^3/uL (1.0-4.8); LYMPH % 14 % (24-48); MEAN CORPUSCULAR HEMOGLOBIN 32 pg (25-35); MEAN CORPUSCULAR HGB CONC 34 g/dL (31-37); MEAN CORPUSCULAR VOLUME 94 fL (79-100); MONO % 7 % (0-9); NEUT % 74 % (31-73); PLATELET COUNT 364 x10^3/uL (140-400); RED BLOOD COUNT 3.72 x10^6/uL (3.50-5.40); RED CELL DISTRIBUTION WIDTH 13.6 % (11.5-14.5); WHITE BLOOD COUNT 8.3 x10^3/uL (4.0-11.0)
[2016-08-16 05:47] LABS: ALBUMIN 3.4 g/dL (3.4-5.0); CALCIUM 9.4 mg/dL (8.5-10.1); CREATININE 6.5 mg/dL (0.6-1.0); GFR 6.8
[2016-08-16] MEDS ORDERED: GENTAMICIN RANDOM LEVEL. MC ONE (06:00)
[2016-08-16] MEDS ORDERED: VANCOMYCIN RANDOM LEVEL. MC ONE (06:00)
[2016-08-16] MEDS ORDERED: LIDOCAINE 2% 100 MG/5 ML SYRINGE. ONE (07:23)
[2016-08-16] MEDS ORDERED: PROPOFOL 20 ML IV ONE (07:23)
[2016-08-16] MEDS ORDERED: fentaNYL PF VIAL 100 MCG/2 ML VIAL ONE ×2 (07:24→09:16)
--- NOTE | 2016-08-16 07:59 | PDOC ---
BRIEF OPERATIVE NOTE Date: Aug 16, 2016 Pre-Op Diagnosis R great cellulitis; osteo Post-Op Diagnosis same Procedure Performed I and D, bone biopsy R great toe, I and D dorsum of foot, wound vac Surgeon Shola Anesthesiologist [employer] Anesthesia Type: General Blood Loss 10mL Specimens Obtained swabs and bone for Cx Complications none UZMA JAIMES II, MD Aug 16, 2016 07:59
[2016-08-16] MEDS: CARVEDILOL 12.5 MG TABLET. PO SCH ×2 (08:00→17:40)
[2016-08-16] MEDS: SEVELAMER CARBONATE 800 MG TABLET. PO SCH ×3 (08:00→17:39)
[2016-08-16] MEDS: ASPIRIN 325 MG TABLET PO SCH (08:00)
[2016-08-16] MEDS: INSULIN ASPART 300 UNITS/3 ML INSULN.PEN SQ SCH ×3 (08:00→17:00)
[2016-08-16] MEDS ORDERED: ROCURONIUM 100 MG/10 ML VIAL. ONE (08:03)
[2016-08-16] MEDS ORDERED: DESFLURANE 31 TO 60 MINUTES IH ONE (08:18)
[2016-08-16] MEDS ORDERED: ONDANSETRON PF 4 MG/2 ML VIAL. ONE (08:18)
[2016-08-16] MEDS ORDERED: GLYCOPYRROLATE 1 MG/5 ML VIAL. ONE (08:19)
[2016-08-16] MEDS ORDERED: NEOSTIGMINE METHYLSULFATE 5 MG/5 ML SYRINGE. ONE (08:19)
[2016-08-16] MEDS ORDERED: DEXAMETHASONE SOD PHOS 20 MG/5 ML VIAL. ONE (08:39)
[2016-08-16] MEDS ORDERED: FAMOTIDINE 20 MG/2 ML VIAL ONE (08:39)
[2016-08-16] MEDS: FOLIC/VIT B COMP W-C (RENAL) TABLET. PO SCH (09:00)
[2016-08-16] MEDS: MORPHINE ER 15 MG TABLET.ER PO SCH ×2 (09:00→20:23)
[2016-08-16] MEDS ORDERED: CARVEDILOL 12.5 MG TABLET. PO SCH (09:00)
[2016-08-16] MEDS: TICAGRELOR 90 MG TABLET. PO SCH ×2 (09:00→20:24)
[2016-08-16] MEDS: FUROSEMIDE 80 MG TABLET. PO SCH ×2 (09:00→17:39)
[2016-08-16] MEDS ORDERED: ALBUTEROL SULFATE 2.5 MG/3 ML NEBU. ONE (09:17)
[2016-08-16] MEDS ORDERED: IV RINGERS,LACTATED 1000ML 1,000 ML IV SCH (09:18)
[2016-08-16] MEDS ORDERED: ALBUTEROL SULFATE 2.5 MG/3 ML NEBU. NEB ONE (09:30)
[2016-08-16] MEDS ORDERED: HYDROmorphone 2 MG/ML VIAL IV PRN (09:30)
[2016-08-16] MEDS ORDERED: PROCHLORPERAZINE 10 MG/2 ML VIAL. IV PRN (09:30)
[2016-08-16] MEDS ORDERED: MORPHINE SULFATE 2 MG/ML DISP.SYRIN. IV PRN (09:30)
[2016-08-16] MEDS ORDERED: LIDOCAINE 1% 1 ML SYRINGE. ID PRN (09:30)
--- NOTE | 2016-08-16 10:08 | OP ---
DATE OF SURGERY: 08/16/2016 SURGEON: Vikas Jaimes M.D. SURVEY INTERVIEWER: None. ANESTHESIA: General. PREOPERATIVE DIAGNOSES: 1. Right great toe osteomyelitis. 2. Right great toe and foot cellulitis. POSTOPERATIVE DIAGNOSES: 1. Right great toe osteomyelitis. 2. Right great toe interphalangeal joint septic arthritis. 3. Right great toe and dorsum of foot cellulitis. PROCEDURES PERFORMED: 1. Right great toe and IP joint irrigation and debridement. 2. Bone biopsy, right great toe proximal phalanx. 3. I and D of right dorsum of foot down to skin. 4. Application of wound VAC to wounds total 1 cm x 1 cm x 2 mm deep and 4 cm x 5 mm x 4 mm deep. COMPLICATIONS: None. ESTIMATED BLOOD LOSS: 5 mL. REASON FOR PROCEDURE: The patient is a very pleasant 50-year-old with peripheral vascular disease, diabetes and renal disease on dialysis who had a worsening pain, redness, drainage, and swelling of her right great toe and foot over the past 3-4 days. There was no particular inciting event, she attributes it to abnormal shoewear. We had discussion of risks, benefits, alternatives to the above procedure. After I performed her clinical examination reviewed the x-rays and MRI and she elected to proceed. DESCRIPTION OF PROCEDURE: The patient was greeted in the preoperative area by myself. Correct extremity was marked and verified. He was taken to the operative suite and she was maintained on routine antibiotics. Once in the OR, transferred gently supine to the OR table and had successful induction of general anesthesia. We then proceeded to prep and drape right lower extremity in usual sterile fashion with Betadine paint. We then conducted a standard preoperative timeout. I began the procedure by using the rongeur to her open wound at the dorsum of her great toe just proximal to her IP joint. I debrided the skin edges and necrotic appearing tissue underneath. I used a curette to scrape out the necrotic tissues well. The subcutaneous wound did tunnel a little approximately. I used a curette to enter the distal aspect of the proximal phalanx and took out bone cultures at this point. The wound did communicate with her IP joint and she did have cartilage that had from the subchondral bone underneath. Her interphalangeal joint was exposed from the wound. I then irrigated this out with approximately 1500 of sterile normal saline. After irrigating out the great toe I then took cultures. I then directed my attention to the dorsum of her foot and went through her prior skin incision where she had her second and third toe amputations performed. I incised skin and dissected down to the subcutaneous tissue with the hemostat. I bluntly explored this area. There is some thin purulent-appearing fluid. I took cultures of this as well. I then irrigated this out with a 1500 mL sterile normal saline. I then fashioned VAC sponges after cleansing and drying the right great toe and foot for both of her wounds and then used another separate VAC sponge from communication between these 2 areas and then another one proximal to this to attach the suction apparatus at her anterior ankle. We then connected the wound VAC and ensured that had good seal. She was then awakened from anesthesia, transferred gently supine to the hospital bed and taken to PACU in stable and extubated condition. Postop plan is to follow up on wound cultures. She will be readmitted to the hospitalist service. Infectious Disease will follow along and make antibiotic recommendations. VIKAS JAIMES MD DR: EBEN/guillermo JOB#: [id number] / [id number] VERENA
[2016-08-16] MEDS: METRONIDAZOLE 500mg PREMIX 100 ML IV SCH ×2 (11:09→21:48)
--- NOTE | 2016-08-16 11:50 | PDOC ---
Renal-Progress Notes Subjective Notes Notes N/V THIS AM History of Present Illness Hx of present illness STABLE Vitals Vitals Vital Signs Date Time Temp Pulse Resp B/P Pulse Ox O2 Delivery O2 Flow Rate FiO2 08/16/16 11:19 16 08/16/16 11:00 98.9 74 137/66 92 Room Air 98.9 08/16/16 09:09 10 Weight Weight [ ] I.O. Intake and Output Intake and Output 08/16/16 06:59 Intake Total 180 ml Output Total 402 ml Balance -222 ml Intake Oral 180 ml Output Urine Total 0 ml Emesis 402 ml Labs Labs Laboratory Tests Test 08/15/16 16:59 08/16/16 04:30 08/16/16 07:35 08/16/16 09:01 Glucose (Fingerstick) 134mg/dL (70-99) 192mg/dL (70-99) 176mg/dL (70-99) White Blood Count 8.3x10^3/uL (4.0-11.0) Red Blood Count 3.72x10^6/uL (3.50-5.40) Hemoglobin 11.8g/dL (12.0-15.5) Hematocrit 35.0% (36.0-47.0) Mean Corpuscular Volume 94fL (79-100) Mean Corpuscular Hemoglobin 32pg (25-35) Mean Corpuscular Hemoglobin Concent 34g/dL (31-37) Red Cell Distribution Width 13.6% (11.5-14.5) Platelet Count 364x10^3/uL (140-400) Neutrophils (%) (Auto) 74% (31-73) Lymphocytes (%) (Auto) 14% (24-48) Monocytes (%) (Auto) 7% (0-9) Eosinophils (%) (Auto) 5% (0-3) Basophils (%) (Auto) 1% (0-3) Neutrophils # (Auto) 6.1x10^3uL (1.8-7.7) Lymphocytes # (Auto) 1.1x10^3/uL (1.0-4.8) Monocytes # (Auto) 0.6x10^3/uL (0.0-1.1) Eosinophils # (Auto) 0.4x10^3/uL (0.0-0.7) Basophils # (Auto) 0.1x10^3/uL (0.0-0.2) Sodium Level 141mmol/L (136-145) Potassium Level 4.0mmol/L (3.5-5.1) Chloride Level 94mmol/L (98-107) Carbon Dioxide Level 37mmol/L (21-32) Anion Gap 10 (6-14) Blood Urea Nitrogen 56mg/dL (7-20) Creatinine 6.5mg/dL (0.6-1.0) Estimated GFR (Cockcroft-Gault) 6.8 Glucose Level 226mg/dL (70-99) Calcium Level 9.4mg/dL (8.5-10.1) Phosphorus Level 8.0mg/dL (2.6-4.7) Magnesium Level 2.2mg/dL (1.8-2.4) Albumin 3.4g/dL (3.4-5.0) Random Gentamicin Level 7.8mcg/mL Random Vancomycin Level 31.4mcg/mL Test 08/16/16 11:40 Glucose (Fingerstick) 231mg/dL (70-99) Review of Systems Constitutional: yes: alert, malaise, oriented, weakness Ears/Nose/Throat: Yes: no symptom reported Eyes: Yes: no symptom reported Pulmonary: Yes no symptom reported Cardiovascular: Yes no symptom reported Gastrointestional: Yes: nausea, vomiting Genitourinary: Yes: other (ANURIA) Musculoskeletal: Yes: muscle stiffness Skin: Yes no symptom reported Psychiatric/Neurological: Yes: no symptom reported Physical Exam General Appearance: no apparent distress Skin: warm Respiratory: bilateral CTA Heart: S1S2, RRR Abdomen: soft, bowel sounds present Genitourinary: bladder flat, no mass Extremities: atrophy Neurology: alert, oriented Assessment Assessment IMP ESRD ANEMIA TOE OSTEOMYELITIS PLAN ANTIBIOTICS ANTIEMETICS HD TODAY UF TO DW WILL FOLLOW CHARLY ZAVALA MD Aug 16, 2016 11:50
[2016-08-16] MEDS ORDERED: DIALYSIS PATIENT. MC PRN ×2 (12:30→14:15)
[2016-08-16] MEDS: GENTAMICIN PER PHARMACY. MC PRN (12:39)
[2016-08-16] MEDS: VANCOMYCIN PER PHARMACY MC PRN (12:40)
--- NOTE | 2016-08-16 13:18 | PDOC ---
PROGRESS NOTES Chief Complaint Chief Complaint 1. right foot cellulitis/osteomyelitis, s/p i and d, on wound vac 08/16 2. h/o left leg BKA 3. dm2 4. htn 5. H/O CAD post CABG, and multiple stents 6. ESRD on HD tts plan: renal, id, ortho consult levaquin, diflucan, flagyl, vanco for now MRI right foot showed osteo ssi, add levemir 10u qhs cont home meds on brilinda only daily as per her PCP for years, no bleeding, ok to cont fu with ortho to see if need further amputation, cont local wound care for now HD TTS heparin for dvt ppx ptot History of Present Illness History of Present Illness post i and d on 08/16, on wound vac Vitals Vitals Vital Signs Date Time Temp Pulse Resp B/P Pulse Ox O2 Delivery O2 Flow Rate FiO2 08/16/16 11:49 16 96 Room Air 08/16/16 11:00 98.9 74 137/66 98.9 08/16/16 09:09 10 Physical Exam General: Alert, Oriented X3, Cooperative Heart: Regular rate, Normal S1 Lungs: Clear Abdomen: Normal bowel sounds, Soft Extremities: No clubbing, No cyanosis, Other (right foot post op, with wound vac on) Labs LABS Laboratory Tests Test 08/15/16 16:59 08/16/16 04:30 08/16/16 07:35 08/16/16 09:01 Glucose (Fingerstick) 134mg/dL (70-99) 192mg/dL (70-99) 176mg/dL (70-99) White Blood Count 8.3x10^3/uL (4.0-11.0) Red Blood Count 3.72x10^6/uL (3.50-5.40) Hemoglobin 11.8g/dL (12.0-15.5) Hematocrit 35.0% (36.0-47.0) Mean Corpuscular Volume 94fL (79-100) Mean Corpuscular Hemoglobin 32pg (25-35) Mean Corpuscular Hemoglobin Concent 34g/dL (31-37) Red Cell Distribution Width 13.6% (11.5-14.5) Platelet Count 364x10^3/uL (140-400) Neutrophils (%) (Auto) 74% (31-73) Lymphocytes (%) (Auto) 14% (24-48) Monocytes (%) (Auto) 7% (0-9) Eosinophils (%) (Auto) 5% (0-3) Basophils (%) (Auto) 1% (0-3) Neutrophils # (Auto) 6.1x10^3uL (1.8-7.7) Lymphocytes # (Auto) 1.1x10^3/uL (1.0-4.8) Monocytes # (Auto) 0.6x10^3/uL (0.0-1.1) Eosinophils # (Auto) 0.4x10^3/uL (0.0-0.7) Basophils # (Auto) 0.1x10^3/uL (0.0-0.2) Sodium Level 141mmol/L (136-145) Potassium Level 4.0mmol/L (3.5-5.1) Chloride Level 94mmol/L (98-107) Carbon Dioxide Level 37mmol/L (21-32) Anion Gap 10 (6-14) Blood Urea Nitrogen 56mg/dL (7-20) Creatinine 6.5mg/dL (0.6-1.0) Estimated GFR (Cockcroft-Gault) 6.8 Glucose Level 226mg/dL (70-99) Calcium Level 9.4mg/dL (8.5-10.1) Phosphorus Level 8.0mg/dL (2.6-4.7) Magnesium Level 2.2mg/dL (1.8-2.4) Albumin 3.4g/dL (3.4-5.0) Random Gentamicin Level 7.8mcg/mL Random Vancomycin Level 31.4mcg/mL Test 08/16/16 11:40 Glucose (Fingerstick) 231mg/dL (70-99) Review of Systems Review of Systems no fever, chills, sob or chest pain Assessment and Plan Assessmemt and Plan Problems Medical Problems: (1) Diabetic foot ulcer with osteomyelitis Status: Acute (2) End-stage renal disease on hemodialysis Status: Acute Problems: Comment Review of Relevant I have reviewed the following items bert (where applicable) has been applied. Labs Laboratory Tests Test 08/15/16 06:26 08/15/16 11:48 08/15/16 16:59 08/16/16 04:30 White Blood Count 15.5x10^3/uL (4.0-11.0) 8.3x10^3/uL (4.0-11.0) Red Blood Count 3.78x10^6/uL (3.50-5.40) 3.72x10^6/uL (3.50-5.40) Hemoglobin 12.2g/dL (12.0-15.5) 11.8g/dL (12.0-15.5) Hematocrit 34.9% (36.0-47.0) 35.0% (36.0-47.0) Mean Corpuscular Volume 93fL (79-100) 94fL (79-100) Mean Corpuscular Hemoglobin 32pg (25-35) 32pg (25-35) Mean Corpuscular Hemoglobin Concent 35g/dL (31-37) 34g/dL (31-37) Red Cell Distribution Width 13.8% (11.5-14.5) 13.6% (11.5-14.5) Platelet Count 437x10^3/uL (140-400) 364x10^3/uL (140-400) Neutrophils (%) (Auto) 81% (31-73) 74% (31-73) Lymphocytes (%) (Auto) 10% (24-48) 14% (24-48) Monocytes (%) (Auto) 5% (0-9) 7% (0-9) Eosinophils (%) (Auto) 4% (0-3) 5% (0-3) Basophils (%) (Auto) 0% (0-3) 1% (0-3) Neutrophils # (Auto) 12.6x10^3uL (1.8-7.7) 6.1x10^3uL (1.8-7.7) Lymphocytes # (Auto) 1.5x10^3/uL (1.0-4.8) 1.1x10^3/uL (1.0-4.8) Monocytes # (Auto) 0.8x10^3/uL (0.0-1.1) 0.6x10^3/uL (0.0-1.1) Eosinophils # (Auto) 0.6x10^3/uL (0.0-0.7) 0.4x10^3/uL (0.0-0.7) Basophils # (Auto) 0.0x10^3/uL (0.0-0.2) 0.1x10^3/uL (0.0-0.2) Segmented Neutrophils % 81% (35-66) Band Neutrophils % 1% (0-9) Lymphocytes % 12% (24-48) Monocytes % 3% (0-10) Eosinophils % 3% (0-5) Platelet Estimate Adequate (ADEQUATE) Erythrocyte Sedimentation Rate 81 (0-25) Sodium Level 138mmol/L (136-145) 141mmol/L (136-145) Potassium Level 4.1mmol/L (3.5-5.1) 4.0mmol/L (3.5-5.1) Chloride Level 94mmol/L (98-107) 94mmol/L (98-107) Carbon Dioxide Level 34mmol/L (21-32) 37mmol/L (21-32) Anion Gap 10 (6-14) 10 (6-14) Blood Urea Nitrogen 45mg/dL (7-20) 56mg/dL (7-20) Creatinine 5.5mg/dL (0.6-1.0) 6.5mg/dL (0.6-1.0) Estimated GFR (Cockcroft-Gault) 8.2 6.8 Glucose Level 127mg/dL (70-99) 226mg/dL (70-99) Calcium Level 9.6mg/dL (8.5-10.1) 9.4mg/dL (8.5-10.1) C-Reactive Protein, Quantitative 21.4mg/L (0-3.3) Glucose (Fingerstick) 100mg/dL (70-99) 134mg/dL (70-99) Phosphorus Level 8.0mg/dL (2.6-4.7) Magnesium Level 2.2mg/dL (1.8-2.4) Albumin 3.4g/dL (3.4-5.0) Random Gentamicin Level 7.8mcg/mL Random Vancomycin Level 31.4mcg/mL Test 08/16/16 07:35 08/16/16 09:01 08/16/16 11:40 Glucose (Fingerstick) 192mg/dL (70-99) 176mg/dL (70-99) 231mg/dL (70-99) Laboratory Tests Test 08/15/16 16:59 08/16/16 04:30 08/16/16 07:35 08/16/16 09:01 Glucose (Fingerstick) 134mg/dL (70-99) 192mg/dL (70-99) 176mg/dL (70-99) White Blood Count 8.3x10^3/uL (4.0-11.0) Red Blood Count 3.72x10^6/uL (3.50-5.40) Hemoglobin 11.8g/dL (12.0-15.5) Hematocrit 35.0% (36.0-47.0) Mean Corpuscular Volume 94fL (79-100) Mean Corpuscular Hemoglobin 32pg (25-35) Mean Corpuscular Hemoglobin Concent 34g/dL (31-37) Red Cell Distribution Width 13.6% (11.5-14.5) Platelet Count 364x10^3/uL (140-400) Neutrophils (%) (Auto) 74% (31-73) Lymphocytes (%) (Auto) 14% (24-48) Monocytes (%) (Auto) 7% (0-9) Eosinophils (%) (Auto) 5% (0-3) Basophils (%) (Auto) 1% (0-3) Neutrophils # (Auto) 6.1x10^3uL (1.8-7.7) Lymphocytes # (Auto) 1.1x10^3/uL (1.0-4.8) Monocytes # (Auto) 0.6x10^3/uL (0.0-1.1) Eosinophils # (Auto) 0.4x10^3/uL (0.0-0.7) Basophils # (Auto) 0.1x10^3/uL (0.0-0.2) Sodium Level 141mmol/L (136-145) Potassium Level 4.0mmol/L (3.5-5.1) Chloride Level 94mmol/L (98-107) Carbon Dioxide Level 37mmol/L (21-32) Anion Gap 10 (6-14) Blood Urea Nitrogen 56mg/dL (7-20) Creatinine 6.5mg/dL (0.6-1.0) Estimated GFR (Cockcroft-Gault) 6.8 Glucose Level 226mg/dL (70-99) Calcium Level 9.4mg/dL (8.5-10.1) Phosphorus Level 8.0mg/dL (2.6-4.7) Magnesium Level 2.2mg/dL (1.8-2.4) Albumin 3.4g/dL (3.4-5.0) Random Gentamicin Level 7.8mcg/mL Random Vancomycin Level 31.4mcg/mL Test 08/16/16 11:40 Glucose (Fingerstick) 231mg/dL (70-99) Microbiology 08/16/16 Gram Stain - Final, Complete Medications Current Medications Fentanyl Citrate (Fentanyl 2ml Vial) 50 mcg 1X ONCE IV Last administered on 07:01; Start 08/15/16 at 06:30; Stop 08/15/16 at 06:31; Status DC Ondansetron HCl (Zofran) 4 mg 1X ONCE IV Last administered on 08/15/16 06:57 ; Start 08/15/16 at 06:30; Stop 08/15/16 at 06:31; Status DC Ondansetron HCl (Zofran) 4 mg PRN Q8HRS PRN IV NAUSEA/VOMITING Last administered on 08/16/16 03:34; Start 08/15/16 at 08:30; Stop 08/16/16 at 08:29 ; Status DC Fentanyl Citrate (Fentanyl 2ml Vial) 50 mcg PRN Q2HR PRN IV PAIN Last administered on 08/16/16 06:08; Start 08/15/16 at 08:30; Stop 08/16/16 at 08:29 ; Status DC Acetaminophen (Tylenol) 650 mg PRN Q4HRS PRN PO FEVER Last administered on 08/15 13:36; Start 08/15/16 at 08:30; Stop 08/16/16 at 08:29; Status DC Levofloxacin/ Dextrose 1 each 1 each PRN DAILY PRN MC SEE COMMENTS; Start 08/15 at 08:30; Stop 08/15/16 at 14:35; Status DC Clindamycin Phosphate 50 ml @ 100 mls/hr Q8HRS IV ; Start 08/15/16 at 14:00; Stop 08/15/16 at 14:00; Status DC Levofloxacin/ Dextrose 100 ml @ 100 mls/hr Q48H IV Last administered on 12:34; Start 08/15/16 at 09:00 Clindamycin Phosphate (Cleocin 900mg Premix) 50 ml @ 100 mls/hr 1X ONCE IV ; Start 08/15/16 at 08:30; Stop 08/15/16 at 08:32; Status DC Vancomycin HCl 1 each 1 each PRN DAILY PRN MC SEE COMMENTS; Start 08/15/16 at 08:30; Stop 08/15/16 at 14:33; Status DC Metronidazole 100 ml @ 100 mls/hr Q12HR IV Last administered on 08/16/16 11: 09; Start 08/15/16 at 09:00 Vancomycin HCl/ Sodium Chloride (Iv Sodium Chloride 0.9% 500ml Bag) 500 ml @ 250 mls/hr 1X ONCE IV Last administered on 08/15/16 09:09; Start 08/15/16 at 09:00; Stop 08/15/16 at 10:59; Status DC Aspirin (Anthony Aspirin) 325 mg [id number] PO ; Start 08/16/16 at 08:00 Docusate Sodium (Colace) 100 mg PRN BID PRN PO CONSTIPATION; Start 08/15/16 at 14:30 Furosemide (Lasix) 80 mg BID94 PO Last administered on 08/15/16 16:18; Start 08/15/16 at 16:00 Morphine Sulfate (Ms Contin) 15 mg BID PO Last administered on 08/15/16 22:49 ; Start 08/15/16 at 14:30 Nitroglycerin (Nitrostat) 0.4 mg PRN Q5MIN PRN SL CHEST PAIN; Start 08/15/16 at 14:30 Oxycodone/ Acetaminophen (Percocet 10/325) 1 tab PRN Q6HRS PRN PO PAIN Last administered on 08/15/16 20:27; Start 08/15/16 at 14:30 Sevelamer Carbonate (Renvela) 800 mg TIDWMEALS PO ; Start 08/15/16 at 17:00; Stop 08/15/16 at 17:00; Status DC Ticagrelor (Brilinta) 90 mg BID PO ; Start 08/15/16 at 14:30; Stop 08/15/16 at 14:56; Status DC Tramadol HCl (Ultram) 50 mg Q6H PRN PO PAIN; Start 08/15/16 at 14:30 Atorvastatin Calcium (Lipitor) 80 mg QHS PO Last administered on 08/15/16 20: 26; Start 08/15/16 at 21:00 Fenofibrate (Lofibra) 134 mg QHS PO Last administered on 08/15/16 20:26; Start 08/15/16 at 21:00 Niacin 500 mg 500 mg QHS PO Last administered on 08/15/16 20:26; Start at 21:00 Magnesium Sulfate/ Dextrose 50 ml @ 25 mls/hr PRN DAILY PRN IV for Mag < 1.7 on am labs; Start 08/15/16 at 14:30 Vancomycin HCl/ Sodium Chloride (Iv Sodium Chloride 0.9% 500ml Bag) 500 ml @ 250 mls/hr 1X ONCE IV ; Start 08/15/16 at 14:30; Stop 08/15/16 at 16:29; Status UNV Vancomycin HCl 1 each 1 each PRN DAILY PRN MC SEE COMMENTS Last administered on 08/16/16 12:40; Start 08/15/16 at 14:30 Levofloxacin/ Dextrose (LEVAQUIN 750mg PREMIX) 150 ml @ 100 mls/hr 1X ONCE IV ; Start 08/15/16 at 14:30; Stop 08/15/16 at 15:59; Status UNV Levofloxacin/ Dextrose (Levaquin Per Pharmacy) 1 each PRN DAILY PRN MC SEE COMMENTS; Start 08/15/16 at 14:30; Status UNV Fluconazole (Diflucan) 100 mg DAILY PO ; Start 08/15/16 at 15:00; Stop 08/15/16 at 15:00; Status DC Insulin Aspart (Novolog) 0-9 UNITS TIDWMEALS SQ Last administered on 08/16/16 11:56; Start 08/15/16 at 17:00 Dextrose (Dextrose 50%-Water Syringe) 12.5 gm PRN Q15MIN PRN IV SEE COMMENTS; Start 08/15/16 at 14:30 Vancomycin HCl 1 each 1X ONCE MC Last administered on 08/16/16 06:00; Start 08/16/16 at 06:00; Stop 08/16/16 at 06:01; Status DC Fluconazole 100 mg 100 mg DAILY16 PO Last administered on 08/15/16 16:18; Start 08/15/16 at 16:00 Levofloxacin/ Dextrose (LEVAQUIN 750mg PREMIX) 150 ml @ 100 mls/hr QODAY IV ; Start 08/17/16 at 08:00; Status UNV Ticagrelor (Brilinta) 90 mg BID PO Last administered on 08/15/16 20:26; Start 08/15/16 at 21:00 Carvedilol (Coreg) 12.5 mg BIDWMEALS PO Last administered on 08/15/16 17:48; Start 08/15/16 at 17:00 Carvedilol (Coreg) 12.5 mg DAILY PO ; Start 08/16/16 at 09:00; Stop 08/16/16 at 09:00; Status DC Vitamin B Complex/ Vitamin C (Melly-Shabbir) 1 tab DAILY PO ; Start 08/16/16 at 09: 00 Non-Formulary Medication 210 mg TIDWMEALS PO ; Start 08/15/16 at 17:00; Stop at 17:00; Status DC Gentamicin Sulfate 1 each 1 each PRN DAILY PRN MC SEE COMMENTS Last administered on 08/16/16 12:39; Start 08/15/16 at 16:00 Gentamicin Sulfate/Sodium Chloride (Gentamicin Sulfate/Iv Sodium Chloride 0.9% 100ml) 104.5 ml @ 209 mls/hr 1X ONCE IV Last administered on 08/15/16 17:48 ; Start 08/15/16 at 17:00; Stop 08/15/16 at 17:29; Status DC Gentamicin Sulfate 1 each 1X ONCE MC Last administered on 08/16/16 06:00; Start 08/16/16 at 06:00; Stop 08/16/16 at 06:01; Status DC Sevelamer Carbonate 800 mg 800 mg TIDWMEALS PO Last administered on 08/15/16 17:48; Start 08/15/16 at 17:00 Propofol (Diprivan) 20 ml @ As Directed STK-MED ONCE IV ; Start 08/16/16 at 07: 23; Stop 08/16/16 at 07:24; Status DC Lidocaine HCl (Lidocaine HCl 2% Abboject) 100 mg STK-MED ONCE .ROUTE ; Start at 07:23; Stop 08/16/16 at 07:24; Status DC Fentanyl Citrate (Fentanyl 2ml Vial) 100 mcg STK-MED ONCE .ROUTE ; Start at 07:24; Stop 08/16/16 at 07:25; Status DC Rocuronium [place] (Zemuron) 100 mg STK-MED ONCE .ROUTE ; Start 08/16/16 at 08: 03; Stop 08/16/16 at 08:04; Status DC Ondansetron HCl (Zofran) 4 mg STK-MED ONCE .ROUTE ; Start 08/16/16 at 08:18; Stop 08/16/16 at 08:19; Status DC Desflurane (Suprane) 30 ml STK-MED ONCE IH ; Start 08/16/16 at 08:18; Stop 08/16 at 08:19; Status DC Glycopyrrolate (Robinul) 1 mg STK-MED ONCE .ROUTE ; Start 08/16/16 at 08:19; Stop 08/16/16 at 08:20; Status DC Neostigmine Methylsulfate 5 mg STK-MED ONCE .ROUTE ; Start 08/16/16 at 08:19; Stop 08/16/16 at 08:20; Status DC Dexamethasone Sodium Phosphate (Decadron) 20 mg STK-MED ONCE .ROUTE ; Start at 08:39; Stop 08/16/16 at 08:40; Status DC Famotidine (Pepcid) 20 mg STK-MED ONCE .ROUTE ; Start 08/16/16 at 08:39; Stop at 08:40; Status DC Fentanyl Citrate (Fentanyl 2ml Vial) 100 mcg STK-MED ONCE .ROUTE ; Start at 09:16; Stop 08/16/16 at 09:17; Status DC Albuterol Sulfate (Ventolin Neb Soln) 2.5 mg STK-MED ONCE .ROUTE ; Start at 09:17; Stop 08/16/16 at 09:18; Status DC Morphine Sulfate 1 mg 1 mg PRN Q10MIN PRN IV SEVERE PAIN; Start 08/16/16 at 09: 30; Stop 08/16/16 at 14:00 Lactated Ringer's (Iv Lactated Ringers) 1,000 ml @ 30 mls/hr Q24H IV ; Start at 09:18; Stop 08/16/16 at 21:17 Lidocaine HCl 2 ml PRN 1X PRN ID PRIOR TO IV START; Start 08/16/16 at 09:30; Stop 08/16/16 at 14:00 Hydromorphone HCl (Dilaudid) 0.5 mg PRN Q10MIN PRN IV SEV PAIN, Second choice; Start 08/16/16 at 09:30; Stop 08/16/16 at 14:00 Prochlorperazine Edisylate (Compazine) 5 mg PACU PRN PRN IV NAUSEA, MRX1 Last administered on 08/16/16 11:05; Start 08/16/16 at 09:30; Stop 08/16/16 at 14:00 Albuterol Sulfate (Ventolin Neb Soln) 2.5 mg 1X ONCE NEB Last administered on 08/16/16 09:20; Start 08/16/16 at 09:30; Stop 08/16/16 at 09:31; Status DC Fentanyl Citrate (Fentanyl 2ml Vial) 25 mcg PRN Q5MIN PRN IV Acute Pain Last administered on 08/16/16 11:19; Start 08/16/16 at 09:30; Stop 08/16/16 at 14:00 Info (PHARMACY MONITORING -- do not chart) 1 each PRN DAILY PRN MC SEE COMMENTS ; Start 08/16/16 at 12:30 Vancomycin HCl 1 each 1X ONCE MC ; Start 08/19/16 at 06:00; Stop 08/19/16 at 06 :01 Gentamicin Sulfate 1 each 1X ONCE MC ; Start 08/19/16 at 06:00; Stop 08/19/16 at 06:01 Active Scripts Active Morphine Sulfate Er (Morphine Sulfate) 15 Mg Tablet.er 15 Mg PO BID Reported [auryxia] 210 Mg PO TIDWMEALS Carvedilol 12.5 Mg Tablet 1 Tab PO DAILY Carvedilol 12.5 Mg Tablet 1 Tab PO BID Nephro-Shabbir Tablet (Folic Acid/Vitamin B Comp W-C) 0.8 Mg Tablet 1 Tab PO DAILY Fluconazole 100 Mg Tablet 150 Mg PO PRN PRN Ciprofloxacin Hcl 250 Mg Tablet 250 Mg PO PRN BID PRN Tramadol Hcl 50 Mg Tablet 50 Mg PO Q6H PRN Percocet 10-325 Mg Tablet (Oxycodone/Acetaminophen) 1 Each Tablet 1-2 Tab PO PRN Q6HRS PRN Brilinta (Ticagrelor) 90 Mg Tablet 90 Mg PO DAILY Tricor (Fenofibrate Nanocrystallized) 145 Mg Tablet 1 Tab PO HS Lipitor (Atorvastatin Calcium) 80 Mg Tablet 80 Mg PO HS Niacin 500 Mg Tablet 500 Mg PO HS Lantus (Insulin Glargine,Hum.rec.anlog) 100 Unit/1 Ml Vial 10 Unit SQ HS PRN only if blood sugar >150 at bedtime. Novolog (Insulin Aspart) 100 Unit/1 Ml Cartridge 0 SQ TIDAC sliding scale Aspirin 325 Mg Tablet 325 Mg PO DAILY Furosemide 80 Mg Tablet 80 Mg PO BID Docusate Sodium 100 Mg Capsule 1 Cap PO PRN PRN Nitrostat (Nitroglycerin) 0.4 Mg Tab.subl 0.4 Mg SL PRN Q5MIN PRN Take as needed for chest pain Vitals/I & O Vital Sign - Last 24 Hours 08/15/16 08/15/16 08/15/16 08/15/16 14:16 15:00 16:17 16:19 Temp 98.4 98.4 Pulse 79 Resp 18 B/P 139/48 Pulse Ox 98 O2 Delivery Room Air Room Air Room Air Room Air 08/15/16 08/15/16 08/15/16 08/15/16 17:48 18:38 19:20 20:04 Temp 98.5 98.5 Pulse 79 72 Resp 20 B/P 139/48 128/67 Pulse Ox 98 O2 Delivery Room Air Room Air Room Air 08/15/16 08/15/16 08/15/16 08/15/16 20:17 20:27 20:27 21:27 Resp 18 18 20 O2 Delivery Room Air Room Air Room Air Room Air 08/15/16 08/15/16 08/15/16 08/15/16 22:39 22:49 23:09 23:29 Temp 98.6 98.6 Pulse 100 Resp 20 18 20 B/P 141/75 Pulse Ox 98 98 O2 Delivery Room Air Room Air Room Air 08/16/16 08/16/16 08/16/1622/17 01:10 02:49 03:27 03:34 Temp 97.5 97.5 Pulse 75 Resp 20 18 18 18 B/P 158/82 Pulse Ox 93 O2 Delivery Room Air Room Air Room Air 08/16/16 08/16/16 08/16/16 08/16/16 06:08 06:38 07:00 08:54 Temp 98.0 97.1 98.0 97.1 Pulse 96 78 Resp 18 18 18 20 B/P 195/95 145/62 Pulse Ox 94 99 O2 Delivery Room Air Room Air Room Air Simple Mask O2 Flow Rate 10 08/16/16 08/16/16 08/16/16 08/16/16 08:54 09:00 09:09 09:18 Pulse 74 Resp 18 18 B/P 147/82 Pulse Ox 92 98 100 O2 Delivery Mask Room Air Simple Mask Room Air O2 Flow Rate 10 10 08/16/16 08/16/16 08/16/16 08/16/16 09:24 09:31 09:34 09:39 Temp 97.1 97.1 Pulse 68 70 Resp 18 18 18 B/P 142/73 153/71 Pulse Ox 100 99 97 O2 Delivery Room Air Room Air Room Air Room Air 08/16/16 08/16/16 08/16/16 08/16/16 09:46 11:00 11:19 11:49 Temp 98.9 98.9 Pulse 74 Resp 18 18 16 16 B/P 137/66 Pulse Ox 97 92 96 O2 Delivery Room Air Room Air Room Air Intake and Output 08/15/16 08/15/16 08/16/16 15:00 23:00 07:00 Intake Total 180 ml 0 ml Output Total 0 ml 402 ml Balance 180 ml 0 ml -402 ml QUIN BARRY MD Aug 16, 2016 13:18
[2016-08-16] MEDS: HEPARIN PF for SUB-Q USE 5,000 UNIT/0.5 ML VIAL. SQ SCH ×2 (13:42→21:58)
[2016-08-16] MEDS ORDERED: LIDOCAINE 1% PF 2 ML VIAL. ONE (13:46)
[2016-08-16] MEDS ORDERED: IV NORMAL SALINE 1000ML BAG 1,000 ML IV PRN ×2 (14:11)
[2016-08-16] MEDS ORDERED: diphenhydrAMINE 50 MG/ML VIAL IV PRN ×2 (14:15)
[2016-08-16] MEDS ORDERED: LABETALOL 20 MG/4 ML DISP.SYRIN. IVP PRN (14:15)
[2016-08-16] MEDS ORDERED: cloNIDine HCL 0.1 MG TABLET PO PRN (14:15)
[2016-08-16] MEDS ORDERED: LIDOCAINE 1% PF 2 ML VIAL. INJ ONE (14:15)
[2016-08-16] MEDS ORDERED: ACETAMINOPHEN 500 MG TABLET PO PRN (14:15)
[2016-08-16] MEDS ORDERED: ALBUMIN HUMAN 25% 200 ML IV PRN (14:15)
[2016-08-16] MEDS: FLUCONAZOLE 100 MG TABLET. PO SCH (17:39)
--- NOTE | 2016-08-16 18:49 | PDOC ---
Infectious Disease Note Vital Sign Vital Signs Vital Signs Date Time Temp Pulse Resp B/P Pulse Ox O2 Delivery O2 Flow Rate FiO2 08/16/16 17:51 16 97 Room Air 08/16/16 17:40 75 159/86 08/16/16 17:38 97.9 97.9 08/16/16 09:09 10 Labs Lab Laboratory Tests Test 08/16/16 04:30 08/16/16 07:35 08/16/16 09:01 08/16/16 11:40 White Blood Count 8.3x10^3/uL (4.0-11.0) Red Blood Count 3.72x10^6/uL (3.50-5.40) Hemoglobin 11.8g/dL (12.0-15.5) Hematocrit 35.0% (36.0-47.0) Mean Corpuscular Volume 94fL (79-100) Mean Corpuscular Hemoglobin 32pg (25-35) Mean Corpuscular Hemoglobin Concent 34g/dL (31-37) Red Cell Distribution Width 13.6% (11.5-14.5) Platelet Count 364x10^3/uL (140-400) Neutrophils (%) (Auto) 74% (31-73) Lymphocytes (%) (Auto) 14% (24-48) Monocytes (%) (Auto) 7% (0-9) Eosinophils (%) (Auto) 5% (0-3) Basophils (%) (Auto) 1% (0-3) Neutrophils # (Auto) 6.1x10^3uL (1.8-7.7) Lymphocytes # (Auto) 1.1x10^3/uL (1.0-4.8) Monocytes # (Auto) 0.6x10^3/uL (0.0-1.1) Eosinophils # (Auto) 0.4x10^3/uL (0.0-0.7) Basophils # (Auto) 0.1x10^3/uL (0.0-0.2) Sodium Level 141mmol/L (136-145) Potassium Level 4.0mmol/L (3.5-5.1) Chloride Level 94mmol/L (98-107) Carbon Dioxide Level 37mmol/L (21-32) Anion Gap 10 (6-14) Blood Urea Nitrogen 56mg/dL (7-20) Creatinine 6.5mg/dL (0.6-1.0) Estimated GFR (Cockcroft-Gault) 6.8 Glucose Level 226mg/dL (70-99) Calcium Level 9.4mg/dL (8.5-10.1) Phosphorus Level 8.0mg/dL (2.6-4.7) Magnesium Level 2.2mg/dL (1.8-2.4) Albumin 3.4g/dL (3.4-5.0) Random Gentamicin Level 7.8mcg/mL Random Vancomycin Level 31.4mcg/mL Glucose (Fingerstick) 192mg/dL (70-99) 176mg/dL (70-99) 231mg/dL (70-99) Test 08/16/16 17:37 Glucose (Fingerstick) 187mg/dL (70-99) Objective Assessment Infected diabetic ulcer with osteomyelitits of right great toe s/p I and D, bone bx and application of wound vac, 08/16 Leukocytosis Antibiotic allergy to meropenem & pip/tazo causing peeling and bleeding of skin. Also sulfa CKD on HD h/o staph aureus, Citrobacter & VRE Plan Plan of Care vanc, Levaquin, Flagyl and fluconazole gent x 1 dose 08/15 f/u cultures and am labs Supportive care Thank you [id number] Patient seen and examined. Chart reviewed. 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 Agree with above plan NNEKA QUEEN APRN Aug 16, 2016 18:49 ANTHONY MEEHAN MD Aug 17, 2016 15:51
[2016-08-16] MEDS: FENOFIBRATE,MICRONIZED 134 MG CAPSULE PO SCH (20:23)
[2016-08-16] MEDS: ATORVASTATIN CALCIUM 40 MG TABLET. PO SCH (20:23)
[2016-08-16] MEDS: NIACIN ER 500 MG TABLET.ER PO SCH (20:23)
[2016-08-16] MEDS: INSULIN DETEMIR 300 UNITS/3 ML INSULN.PEN. SQ SCH (21:00)
[2016-08-17] MEDS: fentaNYL PF VIAL 100 MCG/2 ML VIAL IV PRN ×8 (01:14→23:41)
[2016-08-17 03:05] VITALS: BP 137/68
[2016-08-17 05:22] LABS: BASO % 1 % (0-3); EOS % 1 % (0-3); HEMATOCRIT 31.3 % (36.0-47.0); HEMOGLOBIN 10.9 g/dL (12.0-15.5); LYMPH # 1.1 x10^3/uL (1.0-4.8); LYMPH % 10 % (24-48); MEAN CORPUSCULAR HEMOGLOBIN 32 pg (25-35); MEAN CORPUSCULAR HGB CONC 35 g/dL (31-37); MEAN CORPUSCULAR VOLUME 92 fL (79-100); MONO % 6 % (0-9); NEUT % 83 % (31-73); PLATELET COUNT 346 x10^3/uL (140-400); RED BLOOD COUNT 3.39 x10^6/uL (3.50-5.40); RED CELL DISTRIBUTION WIDTH 13.7 % (11.5-14.5); WHITE BLOOD COUNT 10.9 x10^3/uL (4.0-11.0)
[2016-08-17 05:45] LABS: ALBUMIN 3.1 g/dL (3.4-5.0); CALCIUM 9.3 mg/dL (8.5-10.1); CREATININE 3.6 mg/dL (0.6-1.0); GFR 13.4; PHOSPHORUS 5.1 mg/dL (2.6-4.7); POTASSIUM 3.7 mmol/L (3.5-5.1)
[2016-08-17] MEDS: ONDANSETRON PF 4 MG/2 ML VIAL. IV PRN ×3 (06:25→20:19)
[2016-08-17] MEDS: HEPARIN PF for SUB-Q USE 5,000 UNIT/0.5 ML VIAL. SQ SCH ×3 (06:29→23:49)
[2016-08-17 07:00] VITALS: BP 153/69
[2016-08-17] MEDS: SEVELAMER CARBONATE 800 MG TABLET. PO SCH ×3 (08:00→17:00)
--- NOTE | 2016-08-17 08:11 | PDOC ---
ORTHO PROGRESS NOTES Subjective Pain and swelling a little better at right foot, no new complaints. Nausea improving Vitals Vital Signs Date Time Temp Pulse Resp B/P Pulse Ox O2 Delivery O2 Flow Rate FiO2 08/17/16 03:05 98.3 71 18 137/68 97 Room Air 98.3 08/16/16 09:09 10 Labs Laboratory Tests Test 08/15/16 11:48 08/15/16 16:59 08/16/16 04:30 08/16/16 07:35 Glucose (Fingerstick) 100mg/dL (70-99) 134mg/dL (70-99) 192mg/dL (70-99) White Blood Count 8.3x10^3/uL (4.0-11.0) Red Blood Count 3.72x10^6/uL (3.50-5.40) Hemoglobin 11.8g/dL (12.0-15.5) Hematocrit 35.0% (36.0-47.0) Mean Corpuscular Volume 94fL (79-100) Mean Corpuscular Hemoglobin 32pg (25-35) Mean Corpuscular Hemoglobin Concent 34g/dL (31-37) Red Cell Distribution Width 13.6% (11.5-14.5) Platelet Count 364x10^3/uL (140-400) Neutrophils (%) (Auto) 74% (31-73) Lymphocytes (%) (Auto) 14% (24-48) Monocytes (%) (Auto) 7% (0-9) Eosinophils (%) (Auto) 5% (0-3) Basophils (%) (Auto) 1% (0-3) Neutrophils # (Auto) 6.1x10^3uL (1.8-7.7) Lymphocytes # (Auto) 1.1x10^3/uL (1.0-4.8) Monocytes # (Auto) 0.6x10^3/uL (0.0-1.1) Eosinophils # (Auto) 0.4x10^3/uL (0.0-0.7) Basophils # (Auto) 0.1x10^3/uL (0.0-0.2) Sodium Level 141mmol/L (136-145) Potassium Level 4.0mmol/L (3.5-5.1) Chloride Level 94mmol/L (98-107) Carbon Dioxide Level 37mmol/L (21-32) Anion Gap 10 (6-14) Blood Urea Nitrogen 56mg/dL (7-20) Creatinine 6.5mg/dL (0.6-1.0) Estimated GFR (Cockcroft-Gault) 6.8 Glucose Level 226mg/dL (70-99) Calcium Level 9.4mg/dL (8.5-10.1) Phosphorus Level 8.0mg/dL (2.6-4.7) Magnesium Level 2.2mg/dL (1.8-2.4) Albumin 3.4g/dL (3.4-5.0) Random Gentamicin Level 7.8mcg/mL Random Vancomycin Level 31.4mcg/mL Test 08/16/16 09:01 08/16/16 11:40 08/16/16 17:37 08/16/16 21:10 Glucose (Fingerstick) 176mg/dL (70-99) 231mg/dL (70-99) 187mg/dL (70-99) 178mg/dL (70-99) Test 08/17/16 04:15 White Blood Count 10.9x10^3/uL (4.0-11.0) Red Blood Count 3.39x10^6/uL (3.50-5.40) Hemoglobin 10.9g/dL (12.0-15.5) Hematocrit 31.3% (36.0-47.0) Mean Corpuscular Volume 92fL (79-100) Mean Corpuscular Hemoglobin 32pg (25-35) Mean Corpuscular Hemoglobin Concent 35g/dL (31-37) Red Cell Distribution Width 13.7% (11.5-14.5) Platelet Count 346x10^3/uL (140-400) Neutrophils (%) (Auto) 83% (31-73) Lymphocytes (%) (Auto) 10% (24-48) Monocytes (%) (Auto) 6% (0-9) Eosinophils (%) (Auto) 1% (0-3) Basophils (%) (Auto) 1% (0-3) Neutrophils # (Auto) 9.0x10^3uL (1.8-7.7) Lymphocytes # (Auto) 1.1x10^3/uL (1.0-4.8) Monocytes # (Auto) 0.6x10^3/uL (0.0-1.1) Eosinophils # (Auto) 0.1x10^3/uL (0.0-0.7) Basophils # (Auto) 0.0x10^3/uL (0.0-0.2) Sodium Level 139mmol/L (136-145) Potassium Level 3.7mmol/L (3.5-5.1) Chloride Level 98mmol/L (98-107) Carbon Dioxide Level 30mmol/L (21-32) Anion Gap 11 (6-14) Blood Urea Nitrogen 29mg/dL (7-20) Creatinine 3.6mg/dL (0.6-1.0) Estimated GFR (Cockcroft-Gault) 13.4 Glucose Level 219mg/dL (70-99) Calcium Level 9.3mg/dL (8.5-10.1) Phosphorus Level 5.1mg/dL (2.6-4.7) Magnesium Level 1.9mg/dL (1.8-2.4) Albumin 3.1g/dL (3.4-5.0) Laboratory Tests Test 08/16/16 09:01 08/16/16 11:40 08/16/16 17:37 08/16/16 21:10 Glucose (Fingerstick) 176mg/dL (70-99) 231mg/dL (70-99) 187mg/dL (70-99) 178mg/dL (70-99) Test 08/17/16 04:15 White Blood Count 10.9x10^3/uL (4.0-11.0) Red Blood Count 3.39x10^6/uL (3.50-5.40) Hemoglobin 10.9g/dL (12.0-15.5) Hematocrit 31.3% (36.0-47.0) Mean Corpuscular Volume 92fL (79-100) Mean Corpuscular Hemoglobin 32pg (25-35) Mean Corpuscular Hemoglobin Concent 35g/dL (31-37) Red Cell Distribution Width 13.7% (11.5-14.5) Platelet Count 346x10^3/uL (140-400) Neutrophils (%) (Auto) 83% (31-73) Lymphocytes (%) (Auto) 10% (24-48) Monocytes (%) (Auto) 6% (0-9) Eosinophils (%) (Auto) 1% (0-3) Basophils (%) (Auto) 1% (0-3) Neutrophils # (Auto) 9.0x10^3uL (1.8-7.7) Lymphocytes # (Auto) 1.1x10^3/uL (1.0-4.8) Monocytes # (Auto) 0.6x10^3/uL (0.0-1.1) Eosinophils # (Auto) 0.1x10^3/uL (0.0-0.7) Basophils # (Auto) 0.0x10^3/uL (0.0-0.2) Sodium Level 139mmol/L (136-145) Potassium Level 3.7mmol/L (3.5-5.1) Chloride Level 98mmol/L (98-107) Carbon Dioxide Level 30mmol/L (21-32) Anion Gap 11 (6-14) Blood Urea Nitrogen 29mg/dL (7-20) Creatinine 3.6mg/dL (0.6-1.0) Estimated GFR (Cockcroft-Gault) 13.4 Glucose Level 219mg/dL (70-99) Calcium Level 9.3mg/dL (8.5-10.1) Phosphorus Level 5.1mg/dL (2.6-4.7) Magnesium Level 1.9mg/dL (1.8-2.4) Albumin 3.1g/dL (3.4-5.0) Notes A and A RLE: VAC in place with good seal edema improved Assessment and Plan abx per ID f/u on Cxs UZMA JAIMES II, MD Aug 17, 2016 08:11
[2016-08-17] MEDS: FUROSEMIDE 80 MG TABLET. PO SCH ×2 (08:21→17:12)
[2016-08-17] MEDS: FLUCONAZOLE 100 MG TABLET. PO SCH (08:21)
[2016-08-17] MEDS: TICAGRELOR 90 MG TABLET. PO SCH ×2 (08:21→23:42)
[2016-08-17] MEDS: DOCUSATE SODIUM 100 MG CAPSULE. PO PRN (08:21)
[2016-08-17] MEDS: CARVEDILOL 12.5 MG TABLET. PO SCH ×2 (08:22→17:12)
[2016-08-17] MEDS: FOLIC/VIT B COMP W-C (RENAL) TABLET. PO SCH (08:22)
[2016-08-17] MEDS: ASPIRIN 325 MG TABLET PO SCH (08:22)
[2016-08-17] MEDS: INSULIN ASPART 300 UNITS/3 ML INSULN.PEN SQ SCH ×3 (08:33→17:00)
[2016-08-17] MEDS: MORPHINE ER 15 MG TABLET.ER PO SCH ×2 (09:00→23:42)
[2016-08-17] MEDS: METRONIDAZOLE 500mg PREMIX 100 ML IV SCH ×2 (09:31→20:51)
--- NOTE | 2016-08-17 10:21 | PDOC ---
Renal-Progress Notes Subjective Notes Notes NONE History of Present Illness Hx of present illness STABLE Vitals Vitals Vital Signs Date Time Temp Pulse Resp B/P Pulse Ox O2 Delivery O2 Flow Rate FiO2 08/17/16 09:00 16 97 Room Air 08/17/16 08:22 70 153/69 08/17/16 07:00 98.3 98.3 08/16/16 09:09 10 Weight Weight [ ] I.O. Intake and Output Intake and Output 08/17/16 07:00 Intake Total 980 ml Output Total 5 ml Balance 975 ml Intake Oral 980 ml Estimated Blood Loss 5 ml Labs Labs Laboratory Tests Test 08/16/16 11:40 08/16/16 17:37 08/16/16 21:10 08/17/16 04:15 Glucose (Fingerstick) 231mg/dL (70-99) 187mg/dL (70-99) 178mg/dL (70-99) White Blood Count 10.9x10^3/uL (4.0-11.0) Red Blood Count 3.39x10^6/uL (3.50-5.40) Hemoglobin 10.9g/dL (12.0-15.5) Hematocrit 31.3% (36.0-47.0) Mean Corpuscular Volume 92fL (79-100) Mean Corpuscular Hemoglobin 32pg (25-35) Mean Corpuscular Hemoglobin Concent 35g/dL (31-37) Red Cell Distribution Width 13.7% (11.5-14.5) Platelet Count 346x10^3/uL (140-400) Neutrophils (%) (Auto) 83% (31-73) Lymphocytes (%) (Auto) 10% (24-48) Monocytes (%) (Auto) 6% (0-9) Eosinophils (%) (Auto) 1% (0-3) Basophils (%) (Auto) 1% (0-3) Neutrophils # (Auto) 9.0x10^3uL (1.8-7.7) Lymphocytes # (Auto) 1.1x10^3/uL (1.0-4.8) Monocytes # (Auto) 0.6x10^3/uL (0.0-1.1) Eosinophils # (Auto) 0.1x10^3/uL (0.0-0.7) Basophils # (Auto) 0.0x10^3/uL (0.0-0.2) Sodium Level 139mmol/L (136-145) Potassium Level 3.7mmol/L (3.5-5.1) Chloride Level 98mmol/L (98-107) Carbon Dioxide Level 30mmol/L (21-32) Anion Gap 11 (6-14) Blood Urea Nitrogen 29mg/dL (7-20) Creatinine 3.6mg/dL (0.6-1.0) Estimated GFR (Cockcroft-Gault) 13.4 Glucose Level 219mg/dL (70-99) Calcium Level 9.3mg/dL (8.5-10.1) Phosphorus Level 5.1mg/dL (2.6-4.7) Magnesium Level 1.9mg/dL (1.8-2.4) Albumin 3.1g/dL (3.4-5.0) Test 08/17/16 07:18 Glucose (Fingerstick) 222mg/dL (70-99) Micro Micro Microbiology 08/16/16 Gram Stain - Final, Complete Review of Systems Constitutional: yes: alert, malaise, oriented, weakness Ears/Nose/Throat: Yes: no symptom reported Eyes: Yes: no symptom reported Pulmonary: Yes no symptom reported Cardiovascular: Yes no symptom reported Gastrointestional: Yes: nausea, vomiting Genitourinary: Yes: other (ANURIA) Musculoskeletal: Yes: muscle stiffness Skin: Yes no symptom reported Psychiatric/Neurological: Yes: no symptom reported Physical Exam General Appearance: no apparent distress Skin: warm Respiratory: bilateral CTA Heart: S1S2, RRR Abdomen: soft, bowel sounds present Genitourinary: bladder flat, no mass Extremities: atrophy Neurology: alert, oriented Assessment Assessment IMP ESRD ANEMIA TOE OSTEOMYELITIS PLAN ANTIBIOTICS ANTIEMETICS HD THURSDAY WILL FOLLOW CHARLY ZAVALA MD Aug 17, 2016 10:21
--- NOTE | 2016-08-17 10:58 | PDOC ---
Infectious Disease Note Subjective Subjective c/o RLE burning-type pain h/o ataxia and normally has periods of dizziness Mild N/V which she attributes to gastroparesis and abx ROS ROS GEN: Denies fevers, chills, sweats CV: Denies chest pain RESP: Denies shortness of air, cough GI: Denies diarrhea NEURO: Denies confusion Vital Sign Vital Signs Vital Signs Date Time Temp Pulse Resp B/P Pulse Ox O2 Delivery O2 Flow Rate FiO2 08/17/16 09:00 16 97 Room Air 08/17/16 08:22 70 153/69 08/17/16 07:00 98.3 98.3 08/16/16 09:09 10 Physical Exam PHYSICAL EXAM GENERAL: Sitting on the side of the bed, right leg dangling, reading book HEENT: OC/OP clear LUNGS: Clear HEART: S1S2, no gallop, no murmur ABD: Soft, NT EXT: Previous left BKA unremarkable. RLE edema, warm. 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 SKIN: No rash IV: ok Labs Lab Laboratory Tests Test 08/16/16 11:40 08/16/16 17:37 08/16/16 21:10 08/17/16 04:15 Glucose (Fingerstick) 231mg/dL (70-99) 187mg/dL (70-99) 178mg/dL (70-99) White Blood Count 10.9x10^3/uL (4.0-11.0) Red Blood Count 3.39x10^6/uL (3.50-5.40) Hemoglobin 10.9g/dL (12.0-15.5) Hematocrit 31.3% (36.0-47.0) Mean Corpuscular Volume 92fL (79-100) Mean Corpuscular Hemoglobin 32pg (25-35) Mean Corpuscular Hemoglobin Concent 35g/dL (31-37) Red Cell Distribution Width 13.7% (11.5-14.5) Platelet Count 346x10^3/uL (140-400) Neutrophils (%) (Auto) 83% (31-73) Lymphocytes (%) (Auto) 10% (24-48) Monocytes (%) (Auto) 6% (0-9) Eosinophils (%) (Auto) 1% (0-3) Basophils (%) (Auto) 1% (0-3) Neutrophils # (Auto) 9.0x10^3uL (1.8-7.7) Lymphocytes # (Auto) 1.1x10^3/uL (1.0-4.8) Monocytes # (Auto) 0.6x10^3/uL (0.0-1.1) Eosinophils # (Auto) 0.1x10^3/uL (0.0-0.7) Basophils # (Auto) 0.0x10^3/uL (0.0-0.2) Sodium Level 139mmol/L (136-145) Potassium Level 3.7mmol/L (3.5-5.1) Chloride Level 98mmol/L (98-107) Carbon Dioxide Level 30mmol/L (21-32) Anion Gap 11 (6-14) Blood Urea Nitrogen 29mg/dL (7-20) Creatinine 3.6mg/dL (0.6-1.0) Estimated GFR (Cockcroft-Gault) 13.4 Glucose Level 219mg/dL (70-99) Calcium Level 9.3mg/dL (8.5-10.1) Phosphorus Level 5.1mg/dL (2.6-4.7) Magnesium Level 1.9mg/dL (1.8-2.4) Albumin 3.1g/dL (3.4-5.0) Test 08/17/16 07:18 Glucose (Fingerstick) 222mg/dL (70-99) Objective Assessment Infected diabetic ulcer with osteomyelitis of right great toe s/p I and D, bone bx and application of wound vac, 08/16 Leukocytosis Antibiotic allergy to meropenem & pip/tazo causing peeling and bleeding of skin. Also sulfa CKD on HD h/o staph aureus, Citrobacter & VRE Plan Plan of Care vanc, gent, Flagyl and fluconazole Last vanc, gent dose 08/15 d/c Levaquin. f/u cultures and labs Supportive care Patient seen and examined. Chart reviewed. Case d/w MEDICAL ARTIST. Agree with above plan NNEKA QUEEN APRN Aug 17, 2016 10:58 ANTHONY MEEHAN MD Aug 17, 2016 15:50
[2016-08-17 11:00] VITALS: BP 138/84
--- NOTE | 2016-08-17 11:19 | CONS ---
DATE OF CONSULTATION: 08/15/2016 REFERRING PHYSICIAN: Dr. Roel Delgadillo. REASON FOR CONSULTATION: Right foot infection. HISTORY OF PRESENT ILLNESS: This patient is a 50-year-old female with a past medical history of chronic kidney disease on hemodialysis and diabetes mellitus. According to the patient, about 3-4 days prior to admission, she noticed an ulcer on top of her right great toe followed by worsening redness, swelling, pain, and drainage. She was initially seen at [facility] and was prescribed clindamycin and levofloxacin with little improvement. On arrival to [facility] ER, she had elevated white blood cell count to 15,500; a sed rate 81; and CRP 21.4. An x-ray of the right foot showed diffuse soft tissue swelling and partial resorption of the tuft of the first digit compared to a previous exam in 2015. A followup MRI showed findings compatible with osteomyelitis involving the distal shaft and head of the proximal first phalanx as well as mild first IP joint fluid, uncertain sterility. She was seen by orthopedic surgeon, Dr. Jolley. She was taken to the OR and underwent an irrigation and debridement, bone biopsy of right great toe and application of a wound VAC earlier today. Surgical note is unavailable at this time. Intraoperative Gram stain showed no organisms. Culture is pending. The patient has a previous history of having a left calcaneal osteomyelitis associated with VRE, MSSA, and Citrobacter resistant amoxicillin/clavulanic acid, ampicillin, and ampicillin/sulbactam in 2014. The patient is currently finishing dialysis. She feels somewhat nauseous. Denies vomiting, diarrhea, or cramps. Denies fevers, chills, or sweats. She explains, with her neuropathy, she performs daily foot checks, sometimes more often than once a day for fear of developing wounds. She feels that at this time the ulcer on her great toe was caused by her toe rubbing against her shoe. She is also reporting some visual changes with possible rupture of small vessels and is time for an eye exam. PAST MEDICAL HISTORY: MSSA bacteremia; left calcaneal osteomyelitis with Citrobacter freundii, VRE, and MSSA; diabetes mellitus; diabetic neuropathy; chronic kidney disease, on hemodialysis; coronary artery disease; hypertension; hyperlipidemia; chronic obstructive pulmonary disease; asthma; fibromyalgia; and GI bleed/peptic ulcer disease. PAST SURGICAL HISTORY: Coronary artery bypass graft, hysterectomy, left below the knee amputation in 2015, right second and third toe amputations. FAMILY HISTORY: Positive for hypertension and diabetes mellitus. SOCIAL HISTORY: The patient lives at home. She uses a wheelchair for mobility. Nonsmoker. ALLERGIES: MEROPENEM AND PIPERACILLIN/TAZOBACTAM CAUSING "BLEEDING RASH" DESCRIBED THE SKIN PEELING AND BLEEDING, ALSO SULFA AND STRAWBERRIES. REVIEW OF SYSTEMS: Per HPI, otherwise all other review of systems are negative. PHYSICAL EXAMINATION: GENERAL: male, propped up in bed, in no apparent distress. VITAL SIGNS: Temperature 97.9, blood pressure 159/86, heart rate 75, respiratory rate 16, pulse oximetry 97% on room air. Weight is 182 pounds. HEENT: Pupils equally round. Normal conjunctivae. Oral mucosa is pink and moist. NECK: Supple. CHEST: Lungs clear to auscultation. HEART: Normal S1 and S2. Positive murmur. ABDOMEN: Bowel sounds are present, soft, nontender. EXTREMITIES: No gross edema or cyanosis. Previous left BKA unremarkable. The right lower extremity is warm with a wound VAC in place. Inguinal lymph nodes palpable and tender. RUE AV fistula unremarkable. SKIN: Without rash. NEUROLOGIC: Alert and oriented x 3. Moves all extremities. LABORATORY DATA: Today, WBC 8.3, hemoglobin 11.8, platelet count 364,000. Sed rate 81. Sodium 141, potassium 4.0, creatinine 6.5, BUN 56, glucose 226, albumin 3.4. CRP 21.4. Random vancomycin trough 31.4. Cultures per HPI. IMAGING: Per HPI. IMPRESSION: 1. 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 2. Status post I and D with biopsy of bone and application of wound VAC on 08/16/2016. 3. Leukocytosis. 4. Antibiotic allergy to meropenem and piperacillin/tazobactam causing a peeling and bleeding of skin as well as an allergy to sulfa. 5. Chronic kidney disease on hemodialysis. 6. History of Staphylococcus aureus, Citrobacter, and vancomycin-resistant Enterococcus. PLAN: Continue the antibiotics. We will tailor them down as cultures become available. Monitor laboratory values. Supportive care. Thank you, Dr. Delgadillo, for asking us to participate in this patient's care. Should you have further questions or concerns, please call. The patient seen, examined, and plan of care implemented by Dr. Chelo Clayton. ANTHONY CLAYTON MD DR: ESCOBAR/guillermo JOB#: [id number] / [id number] VERENA
--- NOTE | 2016-08-17 12:57 | PDOC ---
PROGRESS NOTES Chief Complaint Chief Complaint 1. right foot cellulitis/osteomyelitis, s/p i and d, on wound vac 08/16 2. h/o left leg BKA 3. dm2 4. htn 5. H/O CAD post CABG, and multiple stents 6. ESRD on HD tts plan: renal, id, ortho consulted dc levaquin, on genta, diflucan, flagyl, vanco for now MRI right foot showed osteo ssi, add levemir 10u qhs cont home meds on brilinda only daily as per her PCP for years, no bleeding, ok to cont fu with ortho to see if need further amputation, cont local wound care for now HD TTS heparin for dvt ppx ptot PIC[facility] LINE today, for iv access and may need skilled nursing iv abx and wound vac at home, if no other sx intervention to be done now. fu with ortho, SW consult History of Present Illness History of Present Illness post i and d on 08/16, on wound vac pt refuse levemir and aspart sometimes, hyperglycemia require to havE PICC line with poor iv access Vitals Vitals Vital Signs Date Time Temp Pulse Resp B/P Pulse Ox O2 Delivery O2 Flow Rate FiO2 08/17/16 12:06 16 97 Room Air 08/17/16 11:00 98.3 70 138/84 98.3 08/16/16 09:09 10 Physical Exam General: Alert, Oriented X3, Cooperative Heart: Regular rate, Normal S1 Lungs: Clear Abdomen: Normal bowel sounds, Soft Extremities: No clubbing, No cyanosis, Other (right foot post op, with wound vac on) Labs LABS Laboratory Tests Test 08/16/16 17:37 08/16/16 21:10 08/17/16 04:15 08/17/16 07:18 Glucose (Fingerstick) 187mg/dL (70-99) 178mg/dL (70-99) 222mg/dL (70-99) White Blood Count 10.9x10^3/uL (4.0-11.0) Red Blood Count 3.39x10^6/uL (3.50-5.40) Hemoglobin 10.9g/dL (12.0-15.5) Hematocrit 31.3% (36.0-47.0) Mean Corpuscular Volume 92fL (79-100) Mean Corpuscular Hemoglobin 32pg (25-35) Mean Corpuscular Hemoglobin Concent 35g/dL (31-37) Red Cell Distribution Width 13.7% (11.5-14.5) Platelet Count 346x10^3/uL (140-400) Neutrophils (%) (Auto) 83% (31-73) Lymphocytes (%) (Auto) 10% (24-48) Monocytes (%) (Auto) 6% (0-9) Eosinophils (%) (Auto) 1% (0-3) Basophils (%) (Auto) 1% (0-3) Neutrophils # (Auto) 9.0x10^3uL (1.8-7.7) Lymphocytes # (Auto) 1.1x10^3/uL (1.0-4.8) Monocytes # (Auto) 0.6x10^3/uL (0.0-1.1) Eosinophils # (Auto) 0.1x10^3/uL (0.0-0.7) Basophils # (Auto) 0.0x10^3/uL (0.0-0.2) Sodium Level 139mmol/L (136-145) Potassium Level 3.7mmol/L (3.5-5.1) Chloride Level 98mmol/L (98-107) Carbon Dioxide Level 30mmol/L (21-32) Anion Gap 11 (6-14) Blood Urea Nitrogen 29mg/dL (7-20) Creatinine 3.6mg/dL (0.6-1.0) Estimated GFR (Cockcroft-Gault) 13.4 Glucose Level 219mg/dL (70-99) Calcium Level 9.3mg/dL (8.5-10.1) Phosphorus Level 5.1mg/dL (2.6-4.7) Magnesium Level 1.9mg/dL (1.8-2.4) Albumin 3.1g/dL (3.4-5.0) Test 08/17/16 11:14 Glucose (Fingerstick) 160mg/dL (70-99) Review of Systems Review of Systems no fever, chills, sob or chest pain Assessment and Plan Assessmemt and Plan Problems Medical Problems: (1) Diabetic foot ulcer with osteomyelitis Status: Acute (2) End-stage renal disease on hemodialysis Status: Acute Problems: Comment Review of Relevant I have reviewed the following items bert (where applicable) has been applied. Labs Laboratory Tests Test 08/15/16 16:59 08/16/16 04:30 08/16/16 07:35 08/16/16 09:01 Glucose (Fingerstick) 134mg/dL (70-99) 192mg/dL (70-99) 176mg/dL (70-99) White Blood Count 8.3x10^3/uL (4.0-11.0) Red Blood Count 3.72x10^6/uL (3.50-5.40) Hemoglobin 11.8g/dL (12.0-15.5) Hematocrit 35.0% (36.0-47.0) Mean Corpuscular Volume 94fL (79-100) Mean Corpuscular Hemoglobin 32pg (25-35) Mean Corpuscular Hemoglobin Concent 34g/dL (31-37) Red Cell Distribution Width 13.6% (11.5-14.5) Platelet Count 364x10^3/uL (140-400) Neutrophils (%) (Auto) 74% (31-73) Lymphocytes (%) (Auto) 14% (24-48) Monocytes (%) (Auto) 7% (0-9) Eosinophils (%) (Auto) 5% (0-3) Basophils (%) (Auto) 1% (0-3) Neutrophils # (Auto) 6.1x10^3uL (1.8-7.7) Lymphocytes # (Auto) 1.1x10^3/uL (1.0-4.8) Monocytes # (Auto) 0.6x10^3/uL (0.0-1.1) Eosinophils # (Auto) 0.4x10^3/uL (0.0-0.7) Basophils # (Auto) 0.1x10^3/uL (0.0-0.2) Sodium Level 141mmol/L (136-145) Potassium Level 4.0mmol/L (3.5-5.1) Chloride Level 94mmol/L (98-107) Carbon Dioxide Level 37mmol/L (21-32) Anion Gap 10 (6-14) Blood Urea Nitrogen 56mg/dL (7-20) Creatinine 6.5mg/dL (0.6-1.0) Estimated GFR (Cockcroft-Gault) 6.8 Glucose Level 226mg/dL (70-99) Calcium Level 9.4mg/dL (8.5-10.1) Phosphorus Level 8.0mg/dL (2.6-4.7) Magnesium Level 2.2mg/dL (1.8-2.4) Albumin 3.4g/dL (3.4-5.0) Random Gentamicin Level 7.8mcg/mL Random Vancomycin Level 31.4mcg/mL Test 08/16/16 11:40 08/16/16 17:37 08/16/16 21:10 08/17/16 04:15 Glucose (Fingerstick) 231mg/dL (70-99) 187mg/dL (70-99) 178mg/dL (70-99) White Blood Count 10.9x10^3/uL (4.0-11.0) Red Blood Count 3.39x10^6/uL (3.50-5.40) Hemoglobin 10.9g/dL (12.0-15.5) Hematocrit 31.3% (36.0-47.0) Mean Corpuscular Volume 92fL (79-100) Mean Corpuscular Hemoglobin 32pg (25-35) Mean Corpuscular Hemoglobin Concent 35g/dL (31-37) Red Cell Distribution Width 13.7% (11.5-14.5) Platelet Count 346x10^3/uL (140-400) Neutrophils (%) (Auto) 83% (31-73) Lymphocytes (%) (Auto) 10% (24-48) Monocytes (%) (Auto) 6% (0-9) Eosinophils (%) (Auto) 1% (0-3) Basophils (%) (Auto) 1% (0-3) Neutrophils # (Auto) 9.0x10^3uL (1.8-7.7) Lymphocytes # (Auto) 1.1x10^3/uL (1.0-4.8) Monocytes # (Auto) 0.6x10^3/uL (0.0-1.1) Eosinophils # (Auto) 0.1x10^3/uL (0.0-0.7) Basophils # (Auto) 0.0x10^3/uL (0.0-0.2) Sodium Level 139mmol/L (136-145) Potassium Level 3.7mmol/L (3.5-5.1) Chloride Level 98mmol/L (98-107) Carbon Dioxide Level 30mmol/L (21-32) Anion Gap 11 (6-14) Blood Urea Nitrogen 29mg/dL (7-20) Creatinine 3.6mg/dL (0.6-1.0) Estimated GFR (Cockcroft-Gault) 13.4 Glucose Level 219mg/dL (70-99) Calcium Level 9.3mg/dL (8.5-10.1) Phosphorus Level 5.1mg/dL (2.6-4.7) Magnesium Level 1.9mg/dL (1.8-2.4) Albumin 3.1g/dL (3.4-5.0) Test 08/17/16 07:18 08/17/16 11:14 Glucose (Fingerstick) 222mg/dL (70-99) 160mg/dL (70-99) Laboratory Tests Test 08/16/16 17:37 08/16/16 21:10 08/17/16 04:15 08/17/16 07:18 Glucose (Fingerstick) 187mg/dL (70-99) 178mg/dL (70-99) 222mg/dL (70-99) White Blood Count 10.9x10^3/uL (4.0-11.0) Red Blood Count 3.39x10^6/uL (3.50-5.40) Hemoglobin 10.9g/dL (12.0-15.5) Hematocrit 31.3% (36.0-47.0) Mean Corpuscular Volume 92fL (79-100) Mean Corpuscular Hemoglobin 32pg (25-35) Mean Corpuscular Hemoglobin Concent 35g/dL (31-37) Red Cell Distribution Width 13.7% (11.5-14.5) Platelet Count 346x10^3/uL (140-400) Neutrophils (%) (Auto) 83% (31-73) Lymphocytes (%) (Auto) 10% (24-48) Monocytes (%) (Auto) 6% (0-9) Eosinophils (%) (Auto) 1% (0-3) Basophils (%) (Auto) 1% (0-3) Neutrophils # (Auto) 9.0x10^3uL (1.8-7.7) Lymphocytes # (Auto) 1.1x10^3/uL (1.0-4.8) Monocytes # (Auto) 0.6x10^3/uL (0.0-1.1) Eosinophils # (Auto) 0.1x10^3/uL (0.0-0.7) Basophils # (Auto) 0.0x10^3/uL (0.0-0.2) Sodium Level 139mmol/L (136-145) Potassium Level 3.7mmol/L (3.5-5.1) Chloride Level 98mmol/L (98-107) Carbon Dioxide Level 30mmol/L (21-32) Anion Gap 11 (6-14) Blood Urea Nitrogen 29mg/dL (7-20) Creatinine 3.6mg/dL (0.6-1.0) Estimated GFR (Cockcroft-Gault) 13.4 Glucose Level 219mg/dL (70-99) Calcium Level 9.3mg/dL (8.5-10.1) Phosphorus Level 5.1mg/dL (2.6-4.7) Magnesium Level 1.9mg/dL (1.8-2.4) Albumin 3.1g/dL (3.4-5.0) Test 08/17/16 11:14 Glucose (Fingerstick) 160mg/dL (70-99) Microbiology 08/16/16 Gram Stain - Final, Complete Medications Current Medications Fentanyl Citrate (Fentanyl 2ml Vial) 50 mcg 1X ONCE IV Last administered on 07:01; Start 08/15/16 at 06:30; Stop 08/15/16 at 06:31; Status DC Ondansetron HCl (Zofran) 4 mg 1X ONCE IV Last administered on 08/15/16 06:57 ; Start 08/15/16 at 06:30; Stop 08/15/16 at 06:31; Status DC Ondansetron HCl (Zofran) 4 mg PRN Q8HRS PRN IV NAUSEA/VOMITING Last administered on 08/16/16 03:34; Start 08/15/16 at 08:30; Stop 08/16/16 at 08:29 ; Status DC Fentanyl Citrate (Fentanyl 2ml Vial) 50 mcg PRN Q2HR PRN IV PAIN Last administered on 08/16/16 06:08; Start 08/15/16 at 08:30; Stop 08/16/16 at 08:29 ; Status DC Acetaminophen (Tylenol) 650 mg PRN Q4HRS PRN PO FEVER Last administered on 08/15 13:36; Start 08/15/16 at 08:30; Stop 08/16/16 at 08:29; Status DC Levofloxacin/ Dextrose 1 each 1 each PRN DAILY PRN MC SEE COMMENTS; Start 08/15 at 08:30; Stop 08/15/16 at 14:35; Status DC Clindamycin Phosphate 50 ml @ 100 mls/hr Q8HRS IV ; Start 08/15/16 at 14:00; Stop 08/15/16 at 14:00; Status DC Levofloxacin/ Dextrose 100 ml @ 100 mls/hr Q48H IV Last administered on 08:21; Start 08/15/16 at 09:00; Stop 08/17/16 at 10:56; Status DC Clindamycin Phosphate (Cleocin 900mg Premix) 50 ml @ 100 mls/hr 1X ONCE IV ; Start 08/15/16 at 08:30; Stop 08/15/16 at 08:32; Status DC Vancomycin HCl 1 each 1 each PRN DAILY PRN MC SEE COMMENTS; Start 08/15/16 at 08:30; Stop 08/15/16 at 14:33; Status DC Metronidazole 100 ml @ 100 mls/hr Q12HR IV Last administered on 08/17/16 09: 31; Start 08/15/16 at 09:00 Vancomycin HCl/ Sodium Chloride (Iv Sodium Chloride 0.9% 500ml Bag) 500 ml @ 250 mls/hr 1X ONCE IV Last administered on 08/15/16 09:09; Start 08/15/16 at 09:00; Stop 08/15/16 at 10:59; Status DC Aspirin (Anthony Aspirin) 325 mg [id number] PO Last administered on 08/17/16 08: 22; Start 08/16/16 at 08:00 Docusate Sodium (Colace) 100 mg PRN BID PRN PO CONSTIPATION Last administered on 08/17/16 08:21; Start 08/15/16 at 14:30 Furosemide (Lasix) 80 mg [id number] PO Last administered on 08/17/16 08:21; Start 08/15/16 at 16:00 Morphine Sulfate (Ms Contin) 15 mg BID PO Last administered on 08/16/16 20:23 ; Start 08/15/16 at 14:30 Nitroglycerin (Nitrostat) 0.4 mg PRN Q5MIN PRN SL CHEST PAIN; Start 08/15/16 at 14:30 Oxycodone/ Acetaminophen (Percocet 10/325) 1 tab PRN Q6HRS PRN PO PAIN Last administered on 08/15/16 20:27; Start 08/15/16 at 14:30 Sevelamer Carbonate (Renvela) 800 mg TIDWMEALS PO ; Start 08/15/16 at 17:00; Stop 08/15/16 at 17:00; Status DC Ticagrelor (Brilinta) 90 mg BID PO ; Start 08/15/16 at 14:30; Stop 08/15/16 at 14:56; Status DC Tramadol HCl (Ultram) 50 mg Q6H PRN PO PAIN; Start 08/15/16 at 14:30 Atorvastatin Calcium (Lipitor) 80 mg QHS PO Last administered on 08/16/16 20: 23; Start 08/15/16 at 21:00 Fenofibrate (Lofibra) 134 mg QHS PO Last administered on 08/16/16 20:23; Start 08/15/16 at 21:00 Niacin 500 mg 500 mg QHS PO Last administered on 08/16/16 20:23; Start at 21:00 Magnesium Sulfate/ Dextrose 50 ml @ 25 mls/hr PRN DAILY PRN IV for Mag < 1.7 on am labs; Start 08/15/16 at 14:30 Vancomycin HCl/ Sodium Chloride (Iv Sodium Chloride 0.9% 500ml Bag) 500 ml @ 250 mls/hr 1X ONCE IV ; Start 08/15/16 at 14:30; Stop 08/15/16 at 16:29; Status UNV Vancomycin HCl 1 each 1 each PRN DAILY PRN MC SEE COMMENTS Last administered on 08/16/16 12:40; Start 08/15/16 at 14:30 Levofloxacin/ Dextrose (LEVAQUIN 750mg PREMIX) 150 ml @ 100 mls/hr 1X ONCE IV ; Start 08/15/16 at 14:30; Stop 08/15/16 at 15:59; Status UNV Levofloxacin/ Dextrose (Levaquin Per Pharmacy) 1 each PRN DAILY PRN MC SEE COMMENTS; Start 08/15/16 at 14:30; Status UNV Fluconazole (Diflucan) 100 mg DAILY PO ; Start 08/15/16 at 15:00; Stop 08/15/16 at 15:00; Status DC Insulin Aspart (Novolog) 0-9 UNITS TIDWMEALS SQ Last administered on 08/17/16 12:13; Start 08/15/16 at 17:00 Dextrose (Dextrose 50%-Water Syringe) 12.5 gm PRN Q15MIN PRN IV SEE COMMENTS; Start 08/15/16 at 14:30 Vancomycin HCl 1 each 1X ONCE MC Last administered on 08/16/16 06:00; Start 08/16/16 at 06:00; Stop 08/16/16 at 06:01; Status DC Fluconazole 100 mg 100 mg DAILY16 PO Last administered on 08/17/16 08:21; Start 08/15/16 at 16:00 Levofloxacin/ Dextrose (LEVAQUIN 750mg PREMIX) 150 ml @ 100 mls/hr QODAY IV ; Start 08/17/16 at 08:00; Status UNV Ticagrelor (Brilinta) 90 mg BID PO Last administered on 08/17/16 08:21; Start 08/15/16 at 21:00 Carvedilol (Coreg) 12.5 mg BIDWMEALS PO Last administered on 08/17/16 08:22; Start 08/15/16 at 17:00 Carvedilol (Coreg) 12.5 mg DAILY PO ; Start 08/16/16 at 09:00; Stop 08/16/16 at 09:00; Status DC Vitamin B Complex/ Vitamin C (Melly-Shabbir) 1 tab DAILY PO Last administered on 08:22; Start 08/16/16 at 09:00 Non-Formulary Medication 210 mg TIDWMEALS PO ; Start 08/15/16 at 17:00; Stop at 17:00; Status DC Gentamicin Sulfate 1 each 1 each PRN DAILY PRN MC SEE COMMENTS Last administered on 08/16/16 12:39; Start 08/15/16 at 16:00 Gentamicin Sulfate/Sodium Chloride (Gentamicin Sulfate/Iv Sodium Chloride 0.9% 100ml) 104.5 ml @ 209 mls/hr 1X ONCE IV Last administered on 08/15/16 17:48 ; Start 08/15/16 at 17:00; Stop 08/15/16 at 17:29; Status DC Gentamicin Sulfate 1 each 1X ONCE MC Last administered on 08/16/16 06:00; Start 08/16/16 at 06:00; Stop 08/16/16 at 06:01; Status DC Sevelamer Carbonate 800 mg 800 mg TIDWMEALS PO Last administered on 08/17/16 12:06; Start 08/15/16 at 17:00 Propofol (Diprivan) 20 ml @ As Directed STK-MED ONCE IV ; Start 08/16/16 at 07: 23; Stop 08/16/16 at 07:24; Status DC Lidocaine HCl (Lidocaine HCl 2% Abboject) 100 mg STK-MED ONCE .ROUTE ; Start at 07:23; Stop 08/16/16 at 07:24; Status DC Fentanyl Citrate (Fentanyl 2ml Vial) 100 mcg STK-MED ONCE .ROUTE ; Start at 07:24; Stop 08/16/16 at 07:25; Status DC Rocuronium [place] (Zemuron) 100 mg STK-MED ONCE .ROUTE ; Start 08/16/16 at 08: 03; Stop 08/16/16 at 08:04; Status DC Ondansetron HCl (Zofran) 4 mg STK-MED ONCE .ROUTE ; Start 08/16/16 at 08:18; Stop 08/16/16 at 08:19; Status DC Desflurane (Suprane) 30 ml STK-MED ONCE IH ; Start 08/16/16 at 08:18; Stop 08/16 at 08:19; Status DC Glycopyrrolate (Robinul) 1 mg STK-MED ONCE .ROUTE ; Start 08/16/16 at 08:19; Stop 08/16/16 at 08:20; Status DC Neostigmine Methylsulfate 5 mg STK-MED ONCE .ROUTE ; Start 08/16/16 at 08:19; Stop 08/16/16 at 08:20; Status DC Dexamethasone Sodium Phosphate (Decadron) 20 mg STK-MED ONCE .ROUTE ; Start at 08:39; Stop 08/16/16 at 08:40; Status DC Famotidine (Pepcid) 20 mg STK-MED ONCE .ROUTE ; Start 08/16/16 at 08:39; Stop at 08:40; Status DC Fentanyl Citrate (Fentanyl 2ml Vial) 100 mcg STK-MED ONCE .ROUTE ; Start at 09:16; Stop 08/16/16 at 09:17; Status DC Albuterol Sulfate (Ventolin Neb Soln) 2.5 mg STK-MED ONCE .ROUTE ; Start at 09:17; Stop 08/16/16 at 09:18; Status DC Morphine Sulfate 1 mg 1 mg PRN Q10MIN PRN IV SEVERE PAIN; Start 08/16/16 at 09: 30; Stop 08/16/16 at 14:00; Status DC Lactated Ringer's (Iv Lactated Ringers) 1,000 ml @ 30 mls/hr Q24H IV ; Start at 09:18; Stop 08/16/16 at 21:17; Status DC Lidocaine HCl 2 ml PRN 1X PRN ID PRIOR TO IV START; Start 08/16/16 at 09:30; Stop 08/16/16 at 14:00; Status DC Hydromorphone HCl (Dilaudid) 0.5 mg PRN Q10MIN PRN IV SEV PAIN, Second choice; Start 08/16/16 at 09:30; Stop 08/16/16 at 14:00; Status DC Prochlorperazine Edisylate (Compazine) 5 mg PACU PRN PRN IV NAUSEA, MRX1 Last administered on 08/16/16 11:05; Start 08/16/16 at 09:30; Stop 08/16/16 at 14:00 ; Status DC Albuterol Sulfate (Ventolin Neb Soln) 2.5 mg 1X ONCE NEB Last administered on 08/16/16 09:20; Start 08/16/16 at 09:30; Stop 08/16/16 at 09:31; Status DC Fentanyl Citrate (Fentanyl 2ml Vial) 25 mcg PRN Q5MIN PRN IV Acute Pain Last administered on 08/16/16 11:19; Start 08/16/16 at 09:30; Stop 08/16/16 at 14:00 ; Status DC Info (PHARMACY MONITORING -- do not chart) 1 each PRN DAILY PRN MC SEE COMMENTS ; Start 08/16/16 at 12:30 Vancomycin HCl 1 each 1X ONCE MC ; Start 08/19/16 at 06:00; Stop 08/19/16 at 06 :01 Gentamicin Sulfate 1 each 1X ONCE MC ; Start 08/19/16 at 06:00; Stop 08/19/16 at 06:01 Insulin Detemir (Levemir) 10 units QHS SQ ; Start 08/16/16 at 21:00 Heparin Sodium (Porcine) 5,000 unit Q8HRS SQ Last administered on 08/17/16 06: 29; Start 08/16/16 at 14:00 Lidocaine HCl (Xylocaine-Mpf 1% Vial) 2 ml STK-MED ONCE .ROUTE ; Start 08/16/16 at 13:46; Stop 08/16/16 at 13:47; Status DC Ondansetron HCl (Zofran) 4 mg PRN Q6HRS PRN IV NAUSEA/VOMITING Last administered on 08/17/16 12:06; Start 08/16/16 at 14:00 Fentanyl Citrate (Fentanyl 2ml Vial) 50 mcg PRN Q2HR PRN IV PAIN Last administered on 08/17/16 12:06; Start 08/16/16 at 14:00 Lidocaine HCl 2 ml 2 ml 1X ONCE INJ Last administered on 08/16/16 14:15; Start 08/16/16 at 14:15; Stop 08/16/16 at 14:16; Status DC Sodium Chloride 1,000 ml @ 1,000 mls/hr Q1H PRN IV hypotension; Start 08/16/16 at 14:11; Stop 08/16/16 at 20:10; Status DC Albumin Human (Albuminar) 200 ml @ 200 mls/hr 1X PRN PRN IV Hypotension; Start 08/16/16 at 14:15; Stop 08/16/16 at 20:14; Status DC Acetaminophen (Tylenol) 500 mg 1X PRN PRN PO MILD PAIN / TEMP; Start 08/16/16 at 14:15; Stop 08/17/16 at 14:14 Diphenhydramine HCl (Benadryl) 25 mg 1X PRN PRN IV ITCHING; Start 08/16/16 at 14:15; Stop 08/16/16 at 20:41; Status DC Diphenhydramine HCl (Benadryl) 25 mg 1X PRN PRN IV ITCHING; Start 08/16/16 at 14:15; Stop 08/16/16 at 20:41; Status DC Labetalol HCl (Normodyne) 10 mg PRN Q1HR PRN IVP SBP > 180; Start 08/16/16 at 14:15; Stop 08/16/16 at 20:42; Status DC Clonidine HCl 0.1 mg 0.1 mg 1X PRN PRN PO SBP > 180; Start 08/16/16 at 14:15; Stop 08/16/16 at 20:40; Status DC Sodium Chloride (Iv Sodium Chloride 0.9% 1000ml Bag) 1,000 ml @ 400 mls/hr Q2H30M PRN IV PATENCY; Start 08/16/16 at 14:11; Stop 08/17/16 at 02:10; Status DC Info (PHARMACY MONITORING -- do not chart) 1 each PRN DAILY PRN MC SEE COMMENTS ; Start 08/16/16 at 14:15; Status Cancel Active Scripts Active Morphine Sulfate Er (Morphine Sulfate) 15 Mg Tablet.er 15 Mg PO BID Reported [auryxia] 210 Mg PO TIDWMEALS Carvedilol 12.5 Mg Tablet 1 Tab PO DAILY Carvedilol 12.5 Mg Tablet 1 Tab PO BID Nephro-Shabbir Tablet (Folic Acid/Vitamin B Comp W-C) 0.8 Mg Tablet 1 Tab PO DAILY Fluconazole 100 Mg Tablet 150 Mg PO PRN PRN Ciprofloxacin Hcl 250 Mg Tablet 250 Mg PO PRN BID PRN Tramadol Hcl 50 Mg Tablet 50 Mg PO Q6H PRN Percocet 10-325 Mg Tablet (Oxycodone/Acetaminophen) 1 Each Tablet 1-2 Tab PO PRN Q6HRS PRN Brilinta (Ticagrelor) 90 Mg Tablet 90 Mg PO DAILY Tricor (Fenofibrate Nanocrystallized) 145 Mg Tablet 1 Tab PO HS Lipitor (Atorvastatin Calcium) 80 Mg Tablet 80 Mg PO HS Niacin 500 Mg Tablet 500 Mg PO HS Lantus (Insulin Glargine,Hum.rec.anlog) 100 Unit/1 Ml Vial 10 Unit SQ HS PRN only if blood sugar >150 at bedtime. Novolog (Insulin Aspart) 100 Unit/1 Ml Cartridge 0 SQ TIDAC sliding scale Aspirin 325 Mg Tablet 325 Mg PO DAILY Furosemide 80 Mg Tablet 80 Mg PO BID Docusate Sodium 100 Mg Capsule 1 Cap PO PRN PRN Nitrostat (Nitroglycerin) 0.4 Mg Tab.subl 0.4 Mg SL PRN Q5MIN PRN Take as needed for chest pain Vitals/I & O Vital Sign - Last 24 Hours 08/16/16 08/16/16 08/16/16 08/16/16 13:00 14:40 17:38 17:40 Temp 97.9 97.9 Pulse 74 73 75 Resp 16 B/P 138/65 141/54 159/86 Pulse Ox 94 97 O2 Delivery Room Air Room Air 08/16/16 08/16/16 08/16/16 08/16/16 17:51 18:21 19:20 20:00 Temp 98.1 98.1 Pulse 71 Resp 16 16 18 B/P 147/71 Pulse Ox 97 97 99 O2 Delivery Room Air Room Air Room Air Room Air 08/16/16 08/17/16 08/17/16 08/17/16 23:33 03:05 07:00 08:00 Temp 99.0 98.3 98.3 99.0 98.3 98.3 Pulse 73 71 70 Resp 18 16 B/P 139/63 137/68 153/69 Pulse Ox 98 97 98 O2 Delivery Room Air Room Air Room Air Room Air 08/17/16 08/17/16 08/17/16 08/17/16 08:20 08:22 09:00 11:00 Temp 98.3 98.3 Pulse 70 70 Resp 16 16 18 B/P 153/69 138/84 Pulse Ox 97 97 97 O2 Delivery Room Air Room Air Room Air 08/17/16 12:06 Resp 16 Pulse Ox 97 O2 Delivery Room Air Intake and Output 08/16/16 08/16/16 08/17/16 15:00 23:00 07:00 Intake Total 300 ml 680 ml Output Total 5 ml Balance -5 ml 300 ml 680 ml QUIN BARRY MD Aug 17, 2016 12:57
[2016-08-17 15:00] VITALS: BP 135/61
--- NOTE | 2016-08-17 15:13 | PDOC ---
ORTHO PROGRESS NOTES Subjective Pain ok, foot feels better. No new complaints Vitals Vital Signs Date Time Temp Pulse Resp B/P Pulse Ox O2 Delivery O2 Flow Rate FiO2 08/17/16 12:06 16 97 Room Air 08/17/16 11:00 98.3 70 138/84 98.3 08/16/16 09:09 10 Labs Laboratory Tests Test 08/15/16 16:59 08/16/16 04:30 08/16/16 07:35 08/16/16 09:01 Glucose (Fingerstick) 134mg/dL (70-99) 192mg/dL (70-99) 176mg/dL (70-99) White Blood Count 8.3x10^3/uL (4.0-11.0) Red Blood Count 3.72x10^6/uL (3.50-5.40) Hemoglobin 11.8g/dL (12.0-15.5) Hematocrit 35.0% (36.0-47.0) Mean Corpuscular Volume 94fL (79-100) Mean Corpuscular Hemoglobin 32pg (25-35) Mean Corpuscular Hemoglobin Concent 34g/dL (31-37) Red Cell Distribution Width 13.6% (11.5-14.5) Platelet Count 364x10^3/uL (140-400) Neutrophils (%) (Auto) 74% (31-73) Lymphocytes (%) (Auto) 14% (24-48) Monocytes (%) (Auto) 7% (0-9) Eosinophils (%) (Auto) 5% (0-3) Basophils (%) (Auto) 1% (0-3) Neutrophils # (Auto) 6.1x10^3uL (1.8-7.7) Lymphocytes # (Auto) 1.1x10^3/uL (1.0-4.8) Monocytes # (Auto) 0.6x10^3/uL (0.0-1.1) Eosinophils # (Auto) 0.4x10^3/uL (0.0-0.7) Basophils # (Auto) 0.1x10^3/uL (0.0-0.2) Sodium Level 141mmol/L (136-145) Potassium Level 4.0mmol/L (3.5-5.1) Chloride Level 94mmol/L (98-107) Carbon Dioxide Level 37mmol/L (21-32) Anion Gap 10 (6-14) Blood Urea Nitrogen 56mg/dL (7-20) Creatinine 6.5mg/dL (0.6-1.0) Estimated GFR (Cockcroft-Gault) 6.8 Glucose Level 226mg/dL (70-99) Calcium Level 9.4mg/dL (8.5-10.1) Phosphorus Level 8.0mg/dL (2.6-4.7) Magnesium Level 2.2mg/dL (1.8-2.4) Albumin 3.4g/dL (3.4-5.0) Random Gentamicin Level 7.8mcg/mL Random Vancomycin Level 31.4mcg/mL Test 08/16/16 11:40 08/16/16 17:37 08/16/16 21:10 08/17/16 04:15 Glucose (Fingerstick) 231mg/dL (70-99) 187mg/dL (70-99) 178mg/dL (70-99) White Blood Count 10.9x10^3/uL (4.0-11.0) Red Blood Count 3.39x10^6/uL (3.50-5.40) Hemoglobin 10.9g/dL (12.0-15.5) Hematocrit 31.3% (36.0-47.0) Mean Corpuscular Volume 92fL (79-100) Mean Corpuscular Hemoglobin 32pg (25-35) Mean Corpuscular Hemoglobin Concent 35g/dL (31-37) Red Cell Distribution Width 13.7% (11.5-14.5) Platelet Count 346x10^3/uL (140-400) Neutrophils (%) (Auto) 83% (31-73) Lymphocytes (%) (Auto) 10% (24-48) Monocytes (%) (Auto) 6% (0-9) Eosinophils (%) (Auto) 1% (0-3) Basophils (%) (Auto) 1% (0-3) Neutrophils # (Auto) 9.0x10^3uL (1.8-7.7) Lymphocytes # (Auto) 1.1x10^3/uL (1.0-4.8) Monocytes # (Auto) 0.6x10^3/uL (0.0-1.1) Eosinophils # (Auto) 0.1x10^3/uL (0.0-0.7) Basophils # (Auto) 0.0x10^3/uL (0.0-0.2) Sodium Level 139mmol/L (136-145) Potassium Level 3.7mmol/L (3.5-5.1) Chloride Level 98mmol/L (98-107) Carbon Dioxide Level 30mmol/L (21-32) Anion Gap 11 (6-14) Blood Urea Nitrogen 29mg/dL (7-20) Creatinine 3.6mg/dL (0.6-1.0) Estimated GFR (Cockcroft-Gault) 13.4 Glucose Level 219mg/dL (70-99) Calcium Level 9.3mg/dL (8.5-10.1) Phosphorus Level 5.1mg/dL (2.6-4.7) Magnesium Level 1.9mg/dL (1.8-2.4) Albumin 3.1g/dL (3.4-5.0) Test 08/17/16 07:18 08/17/16 11:14 Glucose (Fingerstick) 222mg/dL (70-99) 160mg/dL (70-99) Laboratory Tests Test 08/16/16 17:37 08/16/16 21:10 08/17/16 04:15 08/17/16 07:18 Glucose (Fingerstick) 187mg/dL (70-99) 178mg/dL (70-99) 222mg/dL (70-99) White Blood Count 10.9x10^3/uL (4.0-11.0) Red Blood Count 3.39x10^6/uL (3.50-5.40) Hemoglobin 10.9g/dL (12.0-15.5) Hematocrit 31.3% (36.0-47.0) Mean Corpuscular Volume 92fL (79-100) Mean Corpuscular Hemoglobin 32pg (25-35) Mean Corpuscular Hemoglobin Concent 35g/dL (31-37) Red Cell Distribution Width 13.7% (11.5-14.5) Platelet Count 346x10^3/uL (140-400) Neutrophils (%) (Auto) 83% (31-73) Lymphocytes (%) (Auto) 10% (24-48) Monocytes (%) (Auto) 6% (0-9) Eosinophils (%) (Auto) 1% (0-3) Basophils (%) (Auto) 1% (0-3) Neutrophils # (Auto) 9.0x10^3uL (1.8-7.7) Lymphocytes # (Auto) 1.1x10^3/uL (1.0-4.8) Monocytes # (Auto) 0.6x10^3/uL (0.0-1.1) Eosinophils # (Auto) 0.1x10^3/uL (0.0-0.7) Basophils # (Auto) 0.0x10^3/uL (0.0-0.2) Sodium Level 139mmol/L (136-145) Potassium Level 3.7mmol/L (3.5-5.1) Chloride Level 98mmol/L (98-107) Carbon Dioxide Level 30mmol/L (21-32) Anion Gap 11 (6-14) Blood Urea Nitrogen 29mg/dL (7-20) Creatinine 3.6mg/dL (0.6-1.0) Estimated GFR (Cockcroft-Gault) 13.4 Glucose Level 219mg/dL (70-99) Calcium Level 9.3mg/dL (8.5-10.1) Phosphorus Level 5.1mg/dL (2.6-4.7) Magnesium Level 1.9mg/dL (1.8-2.4) Albumin 3.1g/dL (3.4-5.0) Test 08/17/16 11:14 Glucose (Fingerstick) 160mg/dL (70-99) Notes A and A RLE: VAC in place, good seal edema better Assessment and Plan I do not anticipate any other surgical intervention in the short term VAC changes abx per UZMA BENEDICT II, MD Aug 17, 2016 15:13
[2016-08-17 19:30] VITALS: BP 138/71
[2016-08-17] MEDS: INSULIN DETEMIR 300 UNITS/3 ML INSULN.PEN. SQ SCH (21:00)
[2016-08-17 23:15] VITALS: BP 137/64
[2016-08-17] MEDS: NIACIN ER 500 MG TABLET.ER PO SCH (23:42)
[2016-08-17] MEDS: ATORVASTATIN CALCIUM 40 MG TABLET. PO SCH (23:42)
[2016-08-17] MEDS: FENOFIBRATE,MICRONIZED 134 MG CAPSULE PO SCH (23:42)
[2016-08-18] VITALS (15 sets, daily range): BP systolic 108–155; BP diastolic 55–81
[2016-08-18] MEDS: diphenhydrAMINE 50 MG/ML VIAL IVP PRN ×2 (03:15→12:50)
[2016-08-18] MEDS: fentaNYL PF VIAL 100 MCG/2 ML VIAL IV PRN ×6 (03:15→11:46)
[2016-08-18 05:59] LABS: BASO # 0.1 x10^3/uL (0.0-0.2); BASO % 1 % (0-3); EOS % 4 % (0-3); HEMATOCRIT 34.9 % (36.0-47.0); HEMOGLOBIN 11.6 g/dL (12.0-15.5); LYMPH # 1.8 x10^3/uL (1.0-4.8); LYMPH % 23 % (24-48); MEAN CORPUSCULAR HEMOGLOBIN 32 pg (25-35); MEAN CORPUSCULAR HGB CONC 33 g/dL (31-37); MEAN CORPUSCULAR VOLUME 95 fL (79-100); MONO % 8 % (0-9); NEUT % 64 % (31-73); PLATELET COUNT 341 x10^3/uL (140-400); RED BLOOD COUNT 3.66 x10^6/uL (3.50-5.40); RED CELL DISTRIBUTION WIDTH 14.2 % (11.5-14.5); WHITE BLOOD COUNT 7.7 x10^3/uL (4.0-11.0)
[2016-08-18 06:31] LABS: ALBUMIN 3.4 g/dL (3.4-5.0); CREATININE 5.1 mg/dL (0.6-1.0); PHOSPHORUS 5.9 mg/dL (2.6-4.7); POTASSIUM 3.8 mmol/L (3.5-5.1)
[2016-08-18] MEDS: HEPARIN PF for SUB-Q USE 5,000 UNIT/0.5 ML VIAL. SQ SCH ×3 (06:46→22:26)
[2016-08-18 06:56] LABS: CALCIUM 8.8 mg/dL (8.5-10.1)
[2016-08-18] MEDS: INSULIN ASPART 300 UNITS/3 ML INSULN.PEN SQ SCH ×3 (08:00→17:00)
[2016-08-18] MEDS: SEVELAMER CARBONATE 800 MG TABLET. PO SCH ×3 (08:00→17:54)
[2016-08-18] MEDS: CARVEDILOL 12.5 MG TABLET. PO SCH ×2 (08:04→17:54)
[2016-08-18] MEDS: ONDANSETRON PF 4 MG/2 ML VIAL. IV PRN ×2 (08:04→21:00)
[2016-08-18] MEDS ORDERED: MIDAZOLAM HCL/PF 2 MG/2 ML VIAL. IV ONE ×2 (08:30→17:15)
[2016-08-18] MEDS ORDERED: ONDANSETRON PF 4 MG/2 ML VIAL. IV ONE (09:00)
[2016-08-18] MEDS ORDERED: MIDAZOLAM HCL/PF 2 MG/2 ML VIAL. ONE ×2 (09:11→16:47)
[2016-08-18] MEDS: FOLIC/VIT B COMP W-C (RENAL) TABLET. PO SCH (10:20)
[2016-08-18] MEDS: ASPIRIN 325 MG TABLET PO SCH (10:21)
[2016-08-18] MEDS: MORPHINE ER 15 MG TABLET.ER PO SCH ×2 (10:22→22:19)
[2016-08-18] MEDS: FUROSEMIDE 80 MG TABLET. PO SCH ×2 (10:22→17:53)
[2016-08-18] MEDS: TICAGRELOR 90 MG TABLET. PO SCH ×2 (10:22→22:19)
[2016-08-18] MEDS: METRONIDAZOLE 500mg PREMIX 100 ML IV SCH ×2 (10:23→20:59)
--- NOTE | 2016-08-18 10:28 | PDOC ---
PROGRESS NOTES Chief Complaint Chief Complaint R foot osteo ASSESSMENT AND PLAN: 1. R foot cellulitis/osteomyelitis: s/p I&D, on wound vac 08/16. on gent, vanco, diflucan, flagyl. ? amputation necessary 2. DM2: borderline control. increase levemir 10->14, cont ISS 3. HTN: well controlled on current regimen 4. ESRD: on HD TTHSa 5. CAD: hx CABG, and multiple stents. cont secondary prevention meds 6. PAD: hx L BKA 7. Prophylaxis: PPI, heparin History of Present Illness History of Present Illness dressing/ wound vac change in progress. no new issues. Vitals Vitals Vital Signs Date Time Temp Pulse Resp B/P Pulse Ox O2 Delivery O2 Flow Rate FiO2 08/18/16 09:26 98 Room Air 10.0 08/18/16 09:00 15 08/18/16 08:04 70 147/71 08/18/16 07:00 98.2 98.2 Physical Exam General: Alert, Oriented X3, Cooperative Heart: Regular rate Lungs: Clear Abdomen: Normal bowel sounds, Soft Extremities: No clubbing, No cyanosis, Other (R doersum of foot with clean incision, 3 mm deep, 3mm max undermined. toe with crater ulcer, clean appearing) Labs LABS Laboratory Tests Test 08/17/16 11:14 08/17/16 16:35 08/17/16 21:06 08/18/16 05:30 Glucose (Fingerstick) 160mg/dL (70-99) 197mg/dL (70-99) 207mg/dL (70-99) White Blood Count 7.7x10^3/uL (4.0-11.0) Red Blood Count 3.66x10^6/uL (3.50-5.40) Hemoglobin 11.6g/dL (12.0-15.5) Hematocrit 34.9% (36.0-47.0) Mean Corpuscular Volume 95fL (79-100) Mean Corpuscular Hemoglobin 32pg (25-35) Mean Corpuscular Hemoglobin Concent 33g/dL (31-37) Red Cell Distribution Width 14.2% (11.5-14.5) Platelet Count 341x10^3/uL (140-400) Neutrophils (%) (Auto) 64% (31-73) Lymphocytes (%) (Auto) 23% (24-48) Monocytes (%) (Auto) 8% (0-9) Eosinophils (%) (Auto) 4% (0-3) Basophils (%) (Auto) 1% (0-3) Neutrophils # (Auto) 5.0x10^3uL (1.8-7.7) Lymphocytes # (Auto) 1.8x10^3/uL (1.0-4.8) Monocytes # (Auto) 0.7x10^3/uL (0.0-1.1) Eosinophils # (Auto) 0.3x10^3/uL (0.0-0.7) Basophils # (Auto) 0.1x10^3/uL (0.0-0.2) Sodium Level 141mmol/L (136-145) Potassium Level 3.8mmol/L (3.5-5.1) Chloride Level 97mmol/L (98-107) Carbon Dioxide Level 32mmol/L (21-32) Anion Gap 12 (6-14) Blood Urea Nitrogen 43mg/dL (7-20) Creatinine 5.1mg/dL (0.6-1.0) Estimated GFR (Cockcroft-Gault) 9.0 Glucose Level 193mg/dL (70-99) Calcium Level 8.8mg/dL (8.5-10.1) Phosphorus Level 5.9mg/dL (2.6-4.7) Magnesium Level 1.9mg/dL (1.8-2.4) Albumin 3.4g/dL (3.4-5.0) Test 08/18/16 07:03 Glucose (Fingerstick) 165mg/dL (70-99) VIDA ANNE MD Aug 18, 2016 10:28
[2016-08-18] MEDS: VANCOMYCIN PER PHARMACY MC PRN (11:16)
[2016-08-18] MEDS: HYDROmorphone 2 MG/ML VIAL IV PRN ×4 (12:41→21:04)
--- NOTE | 2016-08-18 12:53 | PDOC ---
ORTHO PROGRESS NOTES Subjective c/o pain, current meds not working well, requests dilaudid, as this has worked better in the past. R foot feels better Vitals Vital Signs Date Time Temp Pulse Resp B/P Pulse Ox O2 Delivery O2 Flow Rate FiO2 08/18/16 12:41 98 Room Air 10.0 08/18/16 10:59 98.0 68 16 143/72 98.0 Labs Laboratory Tests Test 08/16/16 17:37 08/16/16 21:10 08/17/16 04:15 08/17/16 07:18 Glucose (Fingerstick) 187mg/dL (70-99) 178mg/dL (70-99) 222mg/dL (70-99) White Blood Count 10.9x10^3/uL (4.0-11.0) Red Blood Count 3.39x10^6/uL (3.50-5.40) Hemoglobin 10.9g/dL (12.0-15.5) Hematocrit 31.3% (36.0-47.0) Mean Corpuscular Volume 92fL (79-100) Mean Corpuscular Hemoglobin 32pg (25-35) Mean Corpuscular Hemoglobin Concent 35g/dL (31-37) Red Cell Distribution Width 13.7% (11.5-14.5) Platelet Count 346x10^3/uL (140-400) Neutrophils (%) (Auto) 83% (31-73) Lymphocytes (%) (Auto) 10% (24-48) Monocytes (%) (Auto) 6% (0-9) Eosinophils (%) (Auto) 1% (0-3) Basophils (%) (Auto) 1% (0-3) Neutrophils # (Auto) 9.0x10^3uL (1.8-7.7) Lymphocytes # (Auto) 1.1x10^3/uL (1.0-4.8) Monocytes # (Auto) 0.6x10^3/uL (0.0-1.1) Eosinophils # (Auto) 0.1x10^3/uL (0.0-0.7) Basophils # (Auto) 0.0x10^3/uL (0.0-0.2) Sodium Level 139mmol/L (136-145) Potassium Level 3.7mmol/L (3.5-5.1) Chloride Level 98mmol/L (98-107) Carbon Dioxide Level 30mmol/L (21-32) Anion Gap 11 (6-14) Blood Urea Nitrogen 29mg/dL (7-20) Creatinine 3.6mg/dL (0.6-1.0) Estimated GFR (Cockcroft-Gault) 13.4 Glucose Level 219mg/dL (70-99) Calcium Level 9.3mg/dL (8.5-10.1) Phosphorus Level 5.1mg/dL (2.6-4.7) Magnesium Level 1.9mg/dL (1.8-2.4) Albumin 3.1g/dL (3.4-5.0) Test 08/17/16 11:14 08/17/16 16:35 08/17/16 21:06 08/18/16 05:30 Glucose (Fingerstick) 160mg/dL (70-99) 197mg/dL (70-99) 207mg/dL (70-99) White Blood Count 7.7x10^3/uL (4.0-11.0) Red Blood Count 3.66x10^6/uL (3.50-5.40) Hemoglobin 11.6g/dL (12.0-15.5) Hematocrit 34.9% (36.0-47.0) Mean Corpuscular Volume 95fL (79-100) Mean Corpuscular Hemoglobin 32pg (25-35) Mean Corpuscular Hemoglobin Concent 33g/dL (31-37) Red Cell Distribution Width 14.2% (11.5-14.5) Platelet Count 341x10^3/uL (140-400) Neutrophils (%) (Auto) 64% (31-73) Lymphocytes (%) (Auto) 23% (24-48) Monocytes (%) (Auto) 8% (0-9) Eosinophils (%) (Auto) 4% (0-3) Basophils (%) (Auto) 1% (0-3) Neutrophils # (Auto) 5.0x10^3uL (1.8-7.7) Lymphocytes # (Auto) 1.8x10^3/uL (1.0-4.8) Monocytes # (Auto) 0.7x10^3/uL (0.0-1.1) Eosinophils # (Auto) 0.3x10^3/uL (0.0-0.7) Basophils # (Auto) 0.1x10^3/uL (0.0-0.2) Sodium Level 141mmol/L (136-145) Potassium Level 3.8mmol/L (3.5-5.1) Chloride Level 97mmol/L (98-107) Carbon Dioxide Level 32mmol/L (21-32) Anion Gap 12 (6-14) Blood Urea Nitrogen 43mg/dL (7-20) Creatinine 5.1mg/dL (0.6-1.0) Estimated GFR (Cockcroft-Gault) 9.0 Glucose Level 193mg/dL (70-99) Calcium Level 8.8mg/dL (8.5-10.1) Phosphorus Level 5.9mg/dL (2.6-4.7) Magnesium Level 1.9mg/dL (1.8-2.4) Albumin 3.4g/dL (3.4-5.0) Test 08/18/16 07:03 08/18/16 11:14 Glucose (Fingerstick) 165mg/dL (70-99) 155mg/dL (70-99) Laboratory Tests Test 08/17/16 16:35 08/17/16 21:06 08/18/16 05:30 08/18/16 07:03 Glucose (Fingerstick) 197mg/dL (70-99) 207mg/dL (70-99) 165mg/dL (70-99) White Blood Count 7.7x10^3/uL (4.0-11.0) Red Blood Count 3.66x10^6/uL (3.50-5.40) Hemoglobin 11.6g/dL (12.0-15.5) Hematocrit 34.9% (36.0-47.0) Mean Corpuscular Volume 95fL (79-100) Mean Corpuscular Hemoglobin 32pg (25-35) Mean Corpuscular Hemoglobin Concent 33g/dL (31-37) Red Cell Distribution Width 14.2% (11.5-14.5) Platelet Count 341x10^3/uL (140-400) Neutrophils (%) (Auto) 64% (31-73) Lymphocytes (%) (Auto) 23% (24-48) Monocytes (%) (Auto) 8% (0-9) Eosinophils (%) (Auto) 4% (0-3) Basophils (%) (Auto) 1% (0-3) Neutrophils # (Auto) 5.0x10^3uL (1.8-7.7) Lymphocytes # (Auto) 1.8x10^3/uL (1.0-4.8) Monocytes # (Auto) 0.7x10^3/uL (0.0-1.1) Eosinophils # (Auto) 0.3x10^3/uL (0.0-0.7) Basophils # (Auto) 0.1x10^3/uL (0.0-0.2) Sodium Level 141mmol/L (136-145) Potassium Level 3.8mmol/L (3.5-5.1) Chloride Level 97mmol/L (98-107) Carbon Dioxide Level 32mmol/L (21-32) Anion Gap 12 (6-14) Blood Urea Nitrogen 43mg/dL (7-20) Creatinine 5.1mg/dL (0.6-1.0) Estimated GFR (Cockcroft-Gault) 9.0 Glucose Level 193mg/dL (70-99) Calcium Level 8.8mg/dL (8.5-10.1) Phosphorus Level 5.9mg/dL (2.6-4.7) Magnesium Level 1.9mg/dL (1.8-2.4) Albumin 3.4g/dL (3.4-5.0) Test 08/18/16 11:14 Glucose (Fingerstick) 155mg/dL (70-99) Notes A and A VAC in place with good seal. edema to RLE still, but overall, soft tissues look better Assessment and Plan will adjust pain meds cont VAC, will need for home abx per UZMA BENEDICT II, MD Aug 18, 2016 12:53
--- NOTE | 2016-08-18 12:55 | PDOC ---
Infectious Disease Note Subjective Subjective c/o RLE burning-type pain h/o ataxia and normally has periods of dizziness Mild N/V which she attributes to gastroparesis and abx ROS ROS GEN: Denies fevers, chills, sweats HEENT: Denies blurred vision, sore throat CV: Denies chest pain RESP: Denies shortness of air, cough GI: Denies n/v/d NEURO: Denies confusion, dizziness MSK: Denies weakness, joint pain/swelling Vital Sign Vital Signs Vital Signs Date Time Temp Pulse Resp B/P Pulse Ox O2 Delivery O2 Flow Rate FiO2 08/18/16 12:41 98 Room Air 10.0 08/18/16 10:59 98.0 68 16 143/72 98.0 Physical Exam PHYSICAL EXAM GENERAL: Sitting on the side of the bed, right leg dangling, reading book HEENT: OC/OP clear LUNGS: Clear HEART: S1S2, no gallop, no murmur ABD: Soft, NT EXT: Previous left BKA unremarkable. RLE edema, warm. Wound vac in place great toe RUE AV fistula COMPONENTS ENGINEER: Alert, oriented x 3 SKIN: No rash IV: ok Labs Lab Laboratory Tests Test 08/17/16 16:35 08/17/16 21:06 08/18/16 05:30 08/18/16 07:03 Glucose (Fingerstick) 197mg/dL (70-99) 207mg/dL (70-99) 165mg/dL (70-99) White Blood Count 7.7x10^3/uL (4.0-11.0) Red Blood Count 3.66x10^6/uL (3.50-5.40) Hemoglobin 11.6g/dL (12.0-15.5) Hematocrit 34.9% (36.0-47.0) Mean Corpuscular Volume 95fL (79-100) Mean Corpuscular Hemoglobin 32pg (25-35) Mean Corpuscular Hemoglobin Concent 33g/dL (31-37) Red Cell Distribution Width 14.2% (11.5-14.5) Platelet Count 341x10^3/uL (140-400) Neutrophils (%) (Auto) 64% (31-73) Lymphocytes (%) (Auto) 23% (24-48) Monocytes (%) (Auto) 8% (0-9) Eosinophils (%) (Auto) 4% (0-3) Basophils (%) (Auto) 1% (0-3) Neutrophils # (Auto) 5.0x10^3uL (1.8-7.7) Lymphocytes # (Auto) 1.8x10^3/uL (1.0-4.8) Monocytes # (Auto) 0.7x10^3/uL (0.0-1.1) Eosinophils # (Auto) 0.3x10^3/uL (0.0-0.7) Basophils # (Auto) 0.1x10^3/uL (0.0-0.2) Sodium Level 141mmol/L (136-145) Potassium Level 3.8mmol/L (3.5-5.1) Chloride Level 97mmol/L (98-107) Carbon Dioxide Level 32mmol/L (21-32) Anion Gap 12 (6-14) Blood Urea Nitrogen 43mg/dL (7-20) Creatinine 5.1mg/dL (0.6-1.0) Estimated GFR (Cockcroft-Gault) 9.0 Glucose Level 193mg/dL (70-99) Calcium Level 8.8mg/dL (8.5-10.1) Phosphorus Level 5.9mg/dL (2.6-4.7) Magnesium Level 1.9mg/dL (1.8-2.4) Albumin 3.4g/dL (3.4-5.0) Test 08/18/16 11:14 Glucose (Fingerstick) 155mg/dL (70-99) Objective Assessment Infected diabetic ulcer with osteomyelitis of right great toe. MSSA s/p I and D, bone bx and application of wound vac, 08/16 Leukocytosis Antibiotic allergy to meropenem & pip/tazo causing peeling and bleeding of skin. Also sulfa CKD on HD h/o staph aureus, Citrobacter & VRE Plan Plan of Care vanc, Levaquin, Flagyl and fluconazole gent x 1 dose 08/15 Wait for IV placement f/u cultures and am labs Supportive care ALBERTO NAVA MD Aug 18, 2016 12:55
[2016-08-18] MEDS ORDERED: LIDOCAINE 1% / SOD BICARB 8.4% 20 ML VIAL. IJ ONE ×2 (15:51→16:30)
[2016-08-18] MEDS ORDERED: GELATIN SPONGE SIZE 12-7MM SPONGE. ONE (17:05)
[2016-08-18] MEDS ORDERED: HEPARIN PF 500 UNIT/5 ML DISP.SYRIN. IV ONE ×2 (17:12→17:15)
[2016-08-18] MEDS ORDERED: fentaNYL PF VIAL 100 MCG/2 ML VIAL IV ONE (17:15)
--- NOTE | 2016-08-18 17:21 | PDOC ---
MODERATE SEDATION ASSESSMENT RISKS/ALTERNATIVES Risks/Alternatives Risks and alternatives of this type of sedation and procedure discussed with: RISK/ALTERNATIVES: Patient H & P ON CHART H & P H & P on chart and reviewed for co-morbid conditions and appropriate labs. H&P ON CHART: Yes STATUS PREG STATUS ASSESSED: Yes MEDS/ALLERGIES REVIEWED Meds/Allergies Reviewed Medications and Allergies including time and route of recently administered narcotics and sedatives. MEDS/ALLERGIES REVIEWED: Yes ASA RATING ASA RATING: II AIRWAY ASSESSMENT Airway Assessment Airway patency, oral function limitations, presence of caps, crowns, dentures, partials, and ability to extend neck assessed. AIRWAY ASSESSMENT: Yes MALLAMPATI SCORE MALLAMPATI SCORE: III PRE-SEDATION ASSESSMENT PRE-SEDATION ASSESSMENT: Yes BRYANNA DELATORRE MD Aug 18, 2016 17:21
--- NOTE | 2016-08-18 17:24 | PDOC ---
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 Condition of Patient Condition of Patient Stable. No apparent complication. Disposition Disposition From IR return to 416. OK to use Power Line for blood draws and infusions. Full report to follow. BRYANNA DELATORRE MD Aug 18, 2016 17:24
[2016-08-18] MEDS: FLUCONAZOLE 100 MG TABLET. PO SCH (17:53)
[2016-08-18] MEDS: ATORVASTATIN CALCIUM 40 MG TABLET. PO SCH (22:20)
[2016-08-18] MEDS: NIACIN ER 500 MG TABLET.ER PO SCH (22:20)
[2016-08-18] MEDS: FENOFIBRATE,MICRONIZED 134 MG CAPSULE PO SCH (22:20)
[2016-08-18] MEDS: INSULIN DETEMIR 300 UNITS/3 ML INSULN.PEN. SQ SCH (22:25)
[2016-08-18] MEDS ORDERED: PROMETHAZINE 12.5 MG in IV NORMAL SALINE 50ML 50 ML IV PRN (22:45)
[2016-08-18] MEDS: PROCHLORPERAZINE 10 MG/2 ML VIAL. IV PRN (23:10)
--- NOTE | 2016-08-18 23:41 | PDOC ---
Provider Note Provider Note RENAL F/U: BERNARDODERI. S : No new c/o O : Alert. VSS. Afebrile. Somnolent. Neck : Supple Lungs : Decreased bases CVS : RRR Abd: Soft, benign in appearance. Portly Ext: Stable edema Neuro : Grossly intact. A/P: ESRD ANEMIA TOE OSTEOMYELITIS. Supportive care Labs better/stable. HD in am. . CPM. MALINDA VARGAS MD Aug 18, 2016 23:41
[2016-08-19] MEDS: HYDROmorphone 2 MG/ML VIAL IV PRN ×5 (01:10→20:19)
[2016-08-19 03:47] VITALS: BP 148/74
[2016-08-19] MEDS ORDERED: GENTAMICIN RANDOM LEVEL. MC ONE (06:00)
[2016-08-19] MEDS ORDERED: VANCOMYCIN RANDOM LEVEL. MC ONE (06:00)
--- NOTE | 2016-08-19 06:03 | RAD ---
Ultrasound and fluoroscopy guided tunneled Power Line insertion Indication: 50-year-old female with right great toe diabetic wound, with osteomyelitis and septic type each joint. She has very poor peripheral IV access. Central venous access has been requested. Due to this patient's requirements for long-term IV antibiotics, insertion of a tunneled power line was selected as the procedure of choice. Anesthesia: 32 minutes moderate sedation was provided utilizing a total of 1 mg Versed and 50 mcg fentanyl, IV. The patient was appropriately monitored by a qualified independent observer throughout the time of moderate sedation. Fluoroscopy time: 0.6 minutes Kerma-Area Product: 2 Gycm2 Antibiotic: No prophylactic antibiotic was considered indicated for this power line insertion procedure. Consent: The procedure was explained in its entirety to the patient and/or the patient's designated tax representative by a member of the treatment team. This included a discussion of risks and benefits and commonly accepted alternatives to the procedure, as well as expected consequences of no treatment at all. Discussion of risks included, but was not limited to, those that are most frequent and those that are rare, but possibly severe or life-threatening, as well as the possibility of unforeseen complications. Sterility: All elements of maximal sterile barrier technique, including the use of a cap, mask, sterile gown, sterile gloves, large sterile sheet, appropriate hand hygiene, and 2% chlorhexidine for cutaneous antisepsis (or acceptable alternative antiseptic per current guidelines) were utilized. Procedure: Informed consent was obtained from the patient. She was placed supine on the angiography table. Preliminary ultrasound examination of left neck revealed wide patency of left external jugular vein, which was documented with a single hard copy ultrasound image. Left neck and upper chest were then prepped and draped in the usual sterile fashion, utilizing all elements of maximal sterile barrier technique, as described above. Conscious sedation was provided with IV Versed and fentanyl. Using aseptic technique and local anesthesia, a small supraclavicular skin incision was made lateral to left external jugular vein. Using aseptic technique, local anesthesia, and direct ultrasound guidance, a small micropuncture sheath was successfully introduced through the small dermatotomy into left external jugular vein, over a microguidewire, which was positioned with its tip within mid right atrium. A second small skin incision was then made along upper anterior lateral aspect of left chest. A subcutaneous tunnel was fashioned between the left chest and supraclavicular incisions. A 5 [place] dual lumen Power Line was then pulled through the subcutaneous tunnel from inferior to superior, utilizing the tunneling device provided. The micropuncture sheath was then exchanged over a guidewire for a 5 [place] peel-away sheath. The Power Line was then trimmed to 30 cm in length length, was advanced through the 5 [place] peel-away sheath, and was positioned with its tip at the level of upper right atrium utilizing fluoroscopic guidance. Satisfactory position of the Power Line was confirmed with a single fluoroscopic spot image. The Power Line was then demonstrated to flush and aspirate normally, was packed, and was secured at the left chest exit site utilizing suture and sterile dressing. Patient tolerated the procedure well without apparent complication. Impression: Successful, uneventful ultrasound and fluoroscopy guided insertion of a 5 [place] dual-lumen left jugular tunneled Power Line, as described.
[2016-08-19] MEDS: HEPARIN PF for SUB-Q USE 5,000 UNIT/0.5 ML VIAL. SQ SCH ×3 (06:22→20:26)
[2016-08-19 06:44] LABS: ALBUMIN 3.3 g/dL (3.4-5.0); CALCIUM 8.6 mg/dL (8.5-10.1); GFR 7.4; PHOSPHORUS 6.3 mg/dL (2.6-4.7)
[2016-08-19 07:15] VITALS: BP 138/71
[2016-08-19] MEDS: GENTAMICIN PER PHARMACY. MC PRN (07:29)
[2016-08-19] MEDS: VANCOMYCIN PER PHARMACY MC PRN (07:30)
[2016-08-19] MEDS: SEVELAMER CARBONATE 800 MG TABLET. PO SCH ×3 (08:00→17:04)
[2016-08-19] MEDS: INSULIN ASPART 300 UNITS/3 ML INSULN.PEN SQ SCH ×3 (08:00→17:00)
[2016-08-19] MEDS: CARVEDILOL 12.5 MG TABLET. PO SCH ×2 (08:00→15:07)
[2016-08-19] MEDS: ONDANSETRON PF 4 MG/2 ML VIAL. IV PRN ×2 (08:26→21:33)
[2016-08-19] MEDS: METRONIDAZOLE 500mg PREMIX 100 ML IV SCH (08:26)
[2016-08-19] MEDS: FUROSEMIDE 80 MG TABLET. PO SCH ×2 (09:00→15:14)
[2016-08-19] MEDS: TICAGRELOR 90 MG TABLET. PO SCH ×2 (09:00→20:18)
--- NOTE | 2016-08-19 09:01 | PDOC ---
Infectious Disease Note Subjective Subjective Mild N/V which she attributes to gastroparesis and abx ROS ROS GEN: Denies fevers, chills, sweats HEENT: Denies blurred vision, sore throat CV: Denies chest pain RESP: Denies shortness of air, cough GI: Denies d NEURO: Denies confusion, dizziness MSK: Denies weakness, joint pain/swelling Vital Sign Vital Signs Vital Signs Date Time Temp Pulse Resp B/P Pulse Ox O2 Delivery O2 Flow Rate FiO2 08/19/16 08:43 Room Air 08/19/16 07:15 98.3 84 20 138/71 97 98.3 08/18/16 17:19 4.0 Physical Exam PHYSICAL EXAM GENERAL: Sitting on the side of the bed, right leg dangling, reading book HEENT: OC/OP clear LUNGS: Clear HEART: S1S2, no gallop, no murmur ABD: Soft, NT EXT: Previous left BKA unremarkable. RLE edema, warm. Wound vac in place great toe RUE AV fistula REGISTERED NURSE OBSTETRICS: Alert, oriented x 3 SKIN: No rash IV: Left chest clean Labs Lab Laboratory Tests Test 08/18/16 11:14 08/18/16 16:24 08/18/16 22:18 08/19/16 06:15 Glucose (Fingerstick) 155mg/dL (70-99) 134mg/dL (70-99) 209mg/dL (70-99) Sodium Level 139mmol/L (136-145) Potassium Level 4.0mmol/L (3.5-5.1) Chloride Level 97mmol/L (98-107) Carbon Dioxide Level 32mmol/L (21-32) Anion Gap 10 (6-14) Blood Urea Nitrogen 54mg/dL (7-20) Creatinine 6.0mg/dL (0.6-1.0) Estimated GFR (Cockcroft-Gault) 7.4 Glucose Level 178mg/dL (70-99) Calcium Level 8.6mg/dL (8.5-10.1) Phosphorus Level 6.3mg/dL (2.6-4.7) Magnesium Level 2.1mg/dL (1.8-2.4) Albumin 3.3g/dL (3.4-5.0) Random Gentamicin Level 1.6mcg/mL Random Vancomycin Level 15.3mcg/mL Test 08/19/16 07:53 Glucose (Fingerstick) 140mg/dL (70-99) Objective Assessment Infected diabetic ulcer with osteomyelitis of right great toe. MSSA Nausea ? meds + gastroparesis s/p I and D, bone bx and application of wound vac, 08/16 Leukocytosis Antibiotic allergy to meropenem & pip/tazo causing peeling and bleeding of skin. Also sulfa. Tolerates Keflex CKD on HD h/o staph aureus, Citrobacter & VRE Plan Plan of Care D/c vanc, Levaquin, Flagyl Begin Cefazolin 1 gm IV daily (has tolerated) will need 4 to 5 weeks Wean fluconazole soon services host eval for d/c f/u cultures and am labs Supportive care ALBERTO NAVA MD Aug 19, 2016 09:01
--- NOTE | 2016-08-19 09:04 | PDOC ---
ORTHO PROGRESS NOTES Subjective She is having a lot of nausea this morning. Compazine did help. She is asking for Zofran. She feels like her pain is doing okay. She had a central line placed yesterday. Vitals Vital Signs Date Time Temp Pulse Resp B/P Pulse Ox O2 Delivery O2 Flow Rate FiO2 08/19/16 08:43 Room Air 08/19/16 07:15 98.3 84 20 138/71 97 98.3 08/18/16 17:19 4.0 Labs Laboratory Tests Test 08/17/16 11:14 08/17/16 16:35 08/17/16 21:06 08/18/16 05:30 Glucose (Fingerstick) 160mg/dL (70-99) 197mg/dL (70-99) 207mg/dL (70-99) White Blood Count 7.7x10^3/uL (4.0-11.0) Red Blood Count 3.66x10^6/uL (3.50-5.40) Hemoglobin 11.6g/dL (12.0-15.5) Hematocrit 34.9% (36.0-47.0) Mean Corpuscular Volume 95fL (79-100) Mean Corpuscular Hemoglobin 32pg (25-35) Mean Corpuscular Hemoglobin Concent 33g/dL (31-37) Red Cell Distribution Width 14.2% (11.5-14.5) Platelet Count 341x10^3/uL (140-400) Neutrophils (%) (Auto) 64% (31-73) Lymphocytes (%) (Auto) 23% (24-48) Monocytes (%) (Auto) 8% (0-9) Eosinophils (%) (Auto) 4% (0-3) Basophils (%) (Auto) 1% (0-3) Neutrophils # (Auto) 5.0x10^3uL (1.8-7.7) Lymphocytes # (Auto) 1.8x10^3/uL (1.0-4.8) Monocytes # (Auto) 0.7x10^3/uL (0.0-1.1) Eosinophils # (Auto) 0.3x10^3/uL (0.0-0.7) Basophils # (Auto) 0.1x10^3/uL (0.0-0.2) Sodium Level 141mmol/L (136-145) Potassium Level 3.8mmol/L (3.5-5.1) Chloride Level 97mmol/L (98-107) Carbon Dioxide Level 32mmol/L (21-32) Anion Gap 12 (6-14) Blood Urea Nitrogen 43mg/dL (7-20) Creatinine 5.1mg/dL (0.6-1.0) Estimated GFR (Cockcroft-Gault) 9.0 Glucose Level 193mg/dL (70-99) Calcium Level 8.8mg/dL (8.5-10.1) Phosphorus Level 5.9mg/dL (2.6-4.7) Magnesium Level 1.9mg/dL (1.8-2.4) Albumin 3.4g/dL (3.4-5.0) Test 08/18/16 07:03 08/18/16 11:14 08/18/16 16:24 08/18/16 22:18 Glucose (Fingerstick) 165mg/dL (70-99) 155mg/dL (70-99) 134mg/dL (70-99) 209mg/dL (70-99) Test 08/19/16 06:15 08/19/16 07:53 Sodium Level 139mmol/L (136-145) Potassium Level 4.0mmol/L (3.5-5.1) Chloride Level 97mmol/L (98-107) Carbon Dioxide Level 32mmol/L (21-32) Anion Gap 10 (6-14) Blood Urea Nitrogen 54mg/dL (7-20) Creatinine 6.0mg/dL (0.6-1.0) Estimated GFR (Cockcroft-Gault) 7.4 Glucose Level 178mg/dL (70-99) Calcium Level 8.6mg/dL (8.5-10.1) Phosphorus Level 6.3mg/dL (2.6-4.7) Magnesium Level 2.1mg/dL (1.8-2.4) Albumin 3.3g/dL (3.4-5.0) Random Gentamicin Level 1.6mcg/mL Random Vancomycin Level 15.3mcg/mL Glucose (Fingerstick) 140mg/dL (70-99) Laboratory Tests Test 08/18/16 11:14 08/18/16 16:24 08/18/16 22:18 08/19/16 06:15 Glucose (Fingerstick) 155mg/dL (70-99) 134mg/dL (70-99) 209mg/dL (70-99) Sodium Level 139mmol/L (136-145) Potassium Level 4.0mmol/L (3.5-5.1) Chloride Level 97mmol/L (98-107) Carbon Dioxide Level 32mmol/L (21-32) Anion Gap 10 (6-14) Blood Urea Nitrogen 54mg/dL (7-20) Creatinine 6.0mg/dL (0.6-1.0) Estimated GFR (Cockcroft-Gault) 7.4 Glucose Level 178mg/dL (70-99) Calcium Level 8.6mg/dL (8.5-10.1) Phosphorus Level 6.3mg/dL (2.6-4.7) Magnesium Level 2.1mg/dL (1.8-2.4) Albumin 3.3g/dL (3.4-5.0) Random Gentamicin Level 1.6mcg/mL Random Vancomycin Level 15.3mcg/mL Test 08/19/16 07:53 Glucose (Fingerstick) 140mg/dL (70-99) Notes She is awake and alert. She looks a little illness morning. Examination of her right lower extremity reveals it is largely unchanged. Mild edema. No erythema. Wound VAC is in place with a good seal Assessment and Plan We will await culture results and antibiotic selection per infectious disease. She'll need the wound VAC for home. Once these issues are coordinated and she can be discharged from my standpoint. UZMA JAIMES II, MD Aug 19, 2016 09:04
--- NOTE | 2016-08-19 09:35 | PDOC ---
PROGRESS NOTES Chief Complaint Chief Complaint R foot osteo ASSESSMENT AND PLAN: 1. R foot cellulitis/osteomyelitis: s/p I&D, on wound vac 08/16. on gent, vanco, diflucan, flagyl. wound cultures growing MSSA. Abx as per ID service. Dr Jolley following 2. DM2: borderline control. increase levemir 10->14, cont ISS 3. PAD: hx L BKA. R LE cold, chronically 4. CAD: hx CABG, and multiple stents. cont secondary prevention meds. 5. HTN: well controlled on current regimen 6. ESRD: on HD TTHSa 7. Prophylaxis: PPI, heparin History of Present Illness History of Present Illness doing ok. no new issues. foot less swollen, moving easier. wound vac in place Vitals Vitals Vital Signs Date Time Temp Pulse Resp B/P Pulse Ox O2 Delivery O2 Flow Rate FiO2 08/19/16 08:43 Room Air 08/19/16 07:15 98.3 84 20 138/71 97 98.3 08/18/16 17:19 4.0 Physical Exam General: Alert, Oriented X3, Cooperative Heart: Regular rate Lungs: Clear Abdomen: Normal bowel sounds, Soft Extremities: No clubbing, No cyanosis, Other (wound vac covering dorsal foot and toe wounds) Skin: No rashes Labs LABS Laboratory Tests Test 08/18/16 11:14 08/18/16 16:24 08/18/16 22:18 08/19/16 06:15 Glucose (Fingerstick) 155mg/dL (70-99) 134mg/dL (70-99) 209mg/dL (70-99) Sodium Level 139mmol/L (136-145) Potassium Level 4.0mmol/L (3.5-5.1) Chloride Level 97mmol/L (98-107) Carbon Dioxide Level 32mmol/L (21-32) Anion Gap 10 (6-14) Blood Urea Nitrogen 54mg/dL (7-20) Creatinine 6.0mg/dL (0.6-1.0) Estimated GFR (Cockcroft-Gault) 7.4 Glucose Level 178mg/dL (70-99) Calcium Level 8.6mg/dL (8.5-10.1) Phosphorus Level 6.3mg/dL (2.6-4.7) Magnesium Level 2.1mg/dL (1.8-2.4) Albumin 3.3g/dL (3.4-5.0) Random Gentamicin Level 1.6mcg/mL Random Vancomycin Level 15.3mcg/mL Test 08/19/16 07:53 Glucose (Fingerstick) 140mg/dL (70-99) VIDA ANNE MD Aug 19, 2016 09:35
--- NOTE | 2016-08-19 10:17 | PDOC ---
Dialysis Progress Note Dialysis Note Dialysis Note Seen on Hemodialysis, tolerating treatment Well Vitals on Hemodialysis: 137/69 65 afeb General Appearance: Awake: Alert Oriented x 3 Neck: No JVD or JVP Chest: CTA [place] Heart: S1 S2 Abdomen - Soft NTND Extremities - No Edema ESRD: Dialysis as below F 180 NR 3: 15 Hrs 3 K 2.5 Ca 140 Na 30 HC03 Qb 350 + Qd 500+ Heparin Units Uf 2 Kgs or to dry weight as tolerated May give 25-50 gms of 25% Albumin if needed to maintain Hemodynamic stability Treatment plan reviewed and discussed with physician credentialing specialist Vitals Vital Signs Vital Signs Date Time Temp Pulse Resp B/P Pulse Ox O2 Delivery O2 Flow Rate FiO2 08/19/16 08:43 Room Air 08/19/16 07:15 98.3 84 20 138/71 97 98.3 08/18/16 17:19 4.0 Labs Last Labs Laboratory Tests Test 08/17/16 11:14 08/17/16 16:35 08/17/16 21:06 08/18/16 05:30 Glucose (Fingerstick) 160mg/dL (70-99) 197mg/dL (70-99) 207mg/dL (70-99) White Blood Count 7.7x10^3/uL (4.0-11.0) Red Blood Count 3.66x10^6/uL (3.50-5.40) Hemoglobin 11.6g/dL (12.0-15.5) Hematocrit 34.9% (36.0-47.0) Mean Corpuscular Volume 95fL (79-100) Mean Corpuscular Hemoglobin 32pg (25-35) Mean Corpuscular Hemoglobin Concent 33g/dL (31-37) Red Cell Distribution Width 14.2% (11.5-14.5) Platelet Count 341x10^3/uL (140-400) Neutrophils (%) (Auto) 64% (31-73) Lymphocytes (%) (Auto) 23% (24-48) Monocytes (%) (Auto) 8% (0-9) Eosinophils (%) (Auto) 4% (0-3) Basophils (%) (Auto) 1% (0-3) Neutrophils # (Auto) 5.0x10^3uL (1.8-7.7) Lymphocytes # (Auto) 1.8x10^3/uL (1.0-4.8) Monocytes # (Auto) 0.7x10^3/uL (0.0-1.1) Eosinophils # (Auto) 0.3x10^3/uL (0.0-0.7) Basophils # (Auto) 0.1x10^3/uL (0.0-0.2) Sodium Level 141mmol/L (136-145) Potassium Level 3.8mmol/L (3.5-5.1) Chloride Level 97mmol/L (98-107) Carbon Dioxide Level 32mmol/L (21-32) Anion Gap 12 (6-14) Blood Urea Nitrogen 43mg/dL (7-20) Creatinine 5.1mg/dL (0.6-1.0) Estimated GFR (Cockcroft-Gault) 9.0 Glucose Level 193mg/dL (70-99) Calcium Level 8.8mg/dL (8.5-10.1) Phosphorus Level 5.9mg/dL (2.6-4.7) Magnesium Level 1.9mg/dL (1.8-2.4) Albumin 3.4g/dL (3.4-5.0) Test 08/18/16 07:03 08/18/16 11:14 08/18/16 16:24 08/18/16 22:18 Glucose (Fingerstick) 165mg/dL (70-99) 155mg/dL (70-99) 134mg/dL (70-99) 209mg/dL (70-99) Test 08/19/16 06:15 08/19/16 07:53 Sodium Level 139mmol/L (136-145) Potassium Level 4.0mmol/L (3.5-5.1) Chloride Level 97mmol/L (98-107) Carbon Dioxide Level 32mmol/L (21-32) Anion Gap 10 (6-14) Blood Urea Nitrogen 54mg/dL (7-20) Creatinine 6.0mg/dL (0.6-1.0) Estimated GFR (Cockcroft-Gault) 7.4 Glucose Level 178mg/dL (70-99) Calcium Level 8.6mg/dL (8.5-10.1) Phosphorus Level 6.3mg/dL (2.6-4.7) Magnesium Level 2.1mg/dL (1.8-2.4) Albumin 3.3g/dL (3.4-5.0) Random Gentamicin Level 1.6mcg/mL Random Vancomycin Level 15.3mcg/mL Glucose (Fingerstick) 140mg/dL (70-99) Laboratory Tests Test 08/18/16 11:14 08/18/16 16:24 08/18/16 22:18 08/19/16 06:15 Glucose (Fingerstick) 155mg/dL (70-99) 134mg/dL (70-99) 209mg/dL (70-99) Sodium Level 139mmol/L (136-145) Potassium Level 4.0mmol/L (3.5-5.1) Chloride Level 97mmol/L (98-107) Carbon Dioxide Level 32mmol/L (21-32) Anion Gap 10 (6-14) Blood Urea Nitrogen 54mg/dL (7-20) Creatinine 6.0mg/dL (0.6-1.0) Estimated GFR (Cockcroft-Gault) 7.4 Glucose Level 178mg/dL (70-99) Calcium Level 8.6mg/dL (8.5-10.1) Phosphorus Level 6.3mg/dL (2.6-4.7) Magnesium Level 2.1mg/dL (1.8-2.4) Albumin 3.3g/dL (3.4-5.0) Random Gentamicin Level 1.6mcg/mL Random Vancomycin Level 15.3mcg/mL Test 08/19/16 07:53 Glucose (Fingerstick) 140mg/dL (70-99) Assessment Assessment Problems Medical Problems: (1) Diabetic foot ulcer with osteomyelitis Status: Acute (2) End-stage renal disease on hemodialysis Status: Acute Problems: Plan Plan of Care Problems Medical Problems: (1) Diabetic foot ulcer with osteomyelitis Status: Acute (2) End-stage renal disease on hemodialysis Status: Acute BEAR LÓPEZ MD Aug 19, 2016 10:17
[2016-08-19] MEDS ORDERED: IV NORMAL SALINE 1000ML BAG 1,000 ML IV PRN (11:28)
[2016-08-19] MEDS ORDERED: DIALYSIS PATIENT. MC PRN ×2 (11:30)
[2016-08-19] MEDS: ASPIRIN 325 MG TABLET PO SCH (13:59)
[2016-08-19] MEDS: FOLIC/VIT B COMP W-C (RENAL) TABLET. PO SCH (13:59)
[2016-08-19] MEDS: MORPHINE ER 15 MG TABLET.ER PO SCH ×2 (13:59→20:20)
[2016-08-19 15:00] VITALS: BP 175/78
[2016-08-19] MEDS: FLUCONAZOLE 100 MG TABLET. PO SCH (15:14)
[2016-08-19] MEDS: fentaNYL PF VIAL 100 MCG/2 ML VIAL IV PRN (15:15)
[2016-08-19] MEDS ORDERED: GENTAMICIN SULFATE IV ONE (16:00)
[2016-08-19] MEDS ORDERED: NORMAL SALINE IV ONE (16:00)
[2016-08-19] MEDS ORDERED: VANCOMYCIN 500 MG in IV NORMAL SALINE 100ML 100 ML IV SCH (16:00)
[2016-08-19] MEDS ORDERED: INSU100V8 SQ (16:35)
[2016-08-19] MEDS ORDERED: SEVE800T9 PO (16:35)
[2016-08-19] MEDS ORDERED: FLUC100T4 PO (16:35)
[2016-08-19] MEDS ORDERED: OXYC-250 PO (16:37)
[2016-08-19] MEDS: PROCHLORPERAZINE 10 MG/2 ML VIAL. IV PRN (17:07)
[2016-08-19 19:00] VITALS: BP 140/75
[2016-08-19] MEDS: ATORVASTATIN CALCIUM 40 MG TABLET. PO SCH (20:18)
[2016-08-19] MEDS: FENOFIBRATE,MICRONIZED 134 MG CAPSULE PO SCH (20:18)
[2016-08-19] MEDS: NIACIN ER 500 MG TABLET.ER PO SCH (20:18)
[2016-08-19] MEDS: DOCUSATE SODIUM 100 MG CAPSULE. PO PRN (20:19)
[2016-08-19] MEDS: INSULIN DETEMIR 300 UNITS/3 ML INSULN.PEN. SQ SCH (21:25)
[2016-08-19] MEDS: diphenhydrAMINE 50 MG/ML VIAL IVP PRN (21:33)
[2016-08-19 23:00] VITALS: BP 132/64
[2016-08-20 03:00] VITALS: BP 125/69
[2016-08-20] MEDS: HYDROmorphone 2 MG/ML VIAL IV PRN ×6 (03:06→23:14)
[2016-08-20] MEDS: PROCHLORPERAZINE 10 MG/2 ML VIAL. IV PRN ×2 (03:06→20:43)
[2016-08-20 04:11] LABS: BASO # 0.1 x10^3/uL (0.0-0.2); BASO % 1 % (0-3); EOS % 3 % (0-3); HEMATOCRIT 30.9 % (36.0-47.0); HEMOGLOBIN 10.2 g/dL (12.0-15.5); LYMPH # 1.7 x10^3/uL (1.0-4.8); LYMPH % 23 % (24-48); MEAN CORPUSCULAR HEMOGLOBIN 32 pg (25-35); MEAN CORPUSCULAR HGB CONC 33 g/dL (31-37); MEAN CORPUSCULAR VOLUME 95 fL (79-100); MONO % 12 % (0-9); NEUT % 61 % (31-73); PLATELET COUNT 306 x10^3/uL (140-400); RED BLOOD COUNT 3.24 x10^6/uL (3.50-5.40); RED CELL DISTRIBUTION WIDTH 14.2 % (11.5-14.5); WHITE BLOOD COUNT 7.1 x10^3/uL (4.0-11.0)
[2016-08-20 04:23] LABS: ALBUMIN 3.2 g/dL (3.4-5.0); CALCIUM 8.7 mg/dL (8.5-10.1); CREATININE 3.8 mg/dL (0.6-1.0); GFR 12.6; PHOSPHORUS 4.3 mg/dL (2.6-4.7); POTASSIUM 3.9 mmol/L (3.5-5.1)
[2016-08-20] MEDS: HEPARIN PF for SUB-Q USE 5,000 UNIT/0.5 ML VIAL. SQ SCH ×3 (06:00→20:51)
[2016-08-20 07:00] VITALS: BP 124/70
[2016-08-20] MEDS: INSULIN ASPART 300 UNITS/3 ML INSULN.PEN SQ SCH ×3 (08:00→17:00)
[2016-08-20] MEDS: MORPHINE ER 15 MG TABLET.ER PO SCH ×2 (08:31→20:43)
[2016-08-20] MEDS: TICAGRELOR 90 MG TABLET. PO SCH ×2 (08:31→20:45)
[2016-08-20] MEDS: ASPIRIN 325 MG TABLET PO SCH (08:31)
[2016-08-20] MEDS: SEVELAMER CARBONATE 800 MG TABLET. PO SCH ×3 (08:32→17:20)
[2016-08-20] MEDS: FOLIC/VIT B COMP W-C (RENAL) TABLET. PO SCH (08:32)
[2016-08-20] MEDS: CARVEDILOL 12.5 MG TABLET. PO SCH ×2 (08:34→17:21)
[2016-08-20] MEDS: FUROSEMIDE 80 MG TABLET. PO SCH ×2 (08:35→17:20)
[2016-08-20] MEDS: ONDANSETRON PF 4 MG/2 ML VIAL. IV PRN ×2 (08:46→23:17)
--- NOTE | 2016-08-20 09:03 | PDOC ---
PROGRESS NOTES Chief Complaint Chief Complaint R foot osteo ASSESSMENT AND PLAN: 1. R foot cellulitis/osteomyelitis: s/p I&D, on wound vac 08/16. on gent, vanco, diflucan, flagyl. wound cultures growing MSSA. Abx as per ID service. Dr Jolley following 2. DM2: borderline control. increase levemir 10->14, cont ISS 3. PAD: hx L BKA. R LE cold, chronically 4. CAD: hx CABG, and multiple stents. cont secondary prevention meds. 5. HTN: well controlled on current regimen 6. ESRD: on HD TTHSa 7. Prophylaxis: PPI, heparin History of Present Illness History of Present Illness doing ok, some pain and nausea, normal for her when hospitalized no new issues. foot less swollen, moving easier. wound vac in place Vitals Vitals Vital Signs Date Time Temp Pulse Resp B/P Pulse Ox O2 Delivery O2 Flow Rate FiO2 08/20/16 08:47 Room Air 08/20/16 08:34 76 124/70 08/20/16 07:00 98.1 16 95 98.1 Physical Exam General: Alert, Oriented X3, Cooperative Heart: Regular rate Lungs: Clear Abdomen: Normal bowel sounds, Soft Extremities: No clubbing, No cyanosis, Other (wound vac covering dorsal foot and toe wounds) Skin: No rashes Labs LABS Laboratory Tests Test 08/19/16 13:56 08/19/16 15:59 08/19/16 20:53 08/20/16 03:30 Glucose (Fingerstick) 108mg/dL (70-99) 135mg/dL (70-99) 153mg/dL (70-99) White Blood Count 7.1x10^3/uL (4.0-11.0) Red Blood Count 3.24x10^6/uL (3.50-5.40) Hemoglobin 10.2g/dL (12.0-15.5) Hematocrit 30.9% (36.0-47.0) Mean Corpuscular Volume 95fL (79-100) Mean Corpuscular Hemoglobin 32pg (25-35) Mean Corpuscular Hemoglobin Concent 33g/dL (31-37) Red Cell Distribution Width 14.2% (11.5-14.5) Platelet Count 306x10^3/uL (140-400) Neutrophils (%) (Auto) 61% (31-73) Lymphocytes (%) (Auto) 23% (24-48) Monocytes (%) (Auto) 12% (0-9) Eosinophils (%) (Auto) 3% (0-3) Basophils (%) (Auto) 1% (0-3) Neutrophils # (Auto) 4.3x10^3uL (1.8-7.7) Lymphocytes # (Auto) 1.7x10^3/uL (1.0-4.8) Monocytes # (Auto) 0.8x10^3/uL (0.0-1.1) Eosinophils # (Auto) 0.2x10^3/uL (0.0-0.7) Basophils # (Auto) 0.1x10^3/uL (0.0-0.2) Sodium Level 139mmol/L (136-145) Potassium Level 3.9mmol/L (3.5-5.1) Chloride Level 101mmol/L (98-107) Carbon Dioxide Level 30mmol/L (21-32) Anion Gap 8 (6-14) Blood Urea Nitrogen 26mg/dL (7-20) Creatinine 3.8mg/dL (0.6-1.0) Estimated GFR (Cockcroft-Gault) 12.6 Glucose Level 117mg/dL (70-99) Calcium Level 8.7mg/dL (8.5-10.1) Phosphorus Level 4.3mg/dL (2.6-4.7) Magnesium Level 1.9mg/dL (1.8-2.4) Albumin 3.2g/dL (3.4-5.0) Test 08/20/16 07:42 Glucose (Fingerstick) 114mg/dL (70-99) Review of Systems Review of Systems no v.d some nausea po intake good Assessment and Plan Assessmemt and Plan plan to DC tomorrow with home health if cleared by Ortho, Problems Medical Problems: (1) Diabetic foot ulcer with osteomyelitis Status: Acute (2) End-stage renal disease on hemodialysis Status: Acute Problems: Comment Review of Relevant I have reviewed the following items bert (where applicable) has been applied. Labs Laboratory Tests Test 08/18/16 11:14 08/18/16 16:24 08/18/16 22:18 08/19/16 06:15 Glucose (Fingerstick) 155mg/dL (70-99) 134mg/dL (70-99) 209mg/dL (70-99) Sodium Level 139mmol/L (136-145) Potassium Level 4.0mmol/L (3.5-5.1) Chloride Level 97mmol/L (98-107) Carbon Dioxide Level 32mmol/L (21-32) Anion Gap 10 (6-14) Blood Urea Nitrogen 54mg/dL (7-20) Creatinine 6.0mg/dL (0.6-1.0) Estimated GFR (Cockcroft-Gault) 7.4 Glucose Level 178mg/dL (70-99) Calcium Level 8.6mg/dL (8.5-10.1) Phosphorus Level 6.3mg/dL (2.6-4.7) Magnesium Level 2.1mg/dL (1.8-2.4) Albumin 3.3g/dL (3.4-5.0) Random Gentamicin Level 1.6mcg/mL Random Vancomycin Level 15.3mcg/mL Test 08/19/16 07:53 08/19/16 13:56 08/19/16 15:59 08/19/16 20:53 Glucose (Fingerstick) 140mg/dL (70-99) 108mg/dL (70-99) 135mg/dL (70-99) 153mg/dL (70-99) Test 08/20/16 03:30 08/20/16 07:42 White Blood Count 7.1x10^3/uL (4.0-11.0) Red Blood Count 3.24x10^6/uL (3.50-5.40) Hemoglobin 10.2g/dL (12.0-15.5) Hematocrit 30.9% (36.0-47.0) Mean Corpuscular Volume 95fL (79-100) Mean Corpuscular Hemoglobin 32pg (25-35) Mean Corpuscular Hemoglobin Concent 33g/dL (31-37) Red Cell Distribution Width 14.2% (11.5-14.5) Platelet Count 306x10^3/uL (140-400) Neutrophils (%) (Auto) 61% (31-73) Lymphocytes (%) (Auto) 23% (24-48) Monocytes (%) (Auto) 12% (0-9) Eosinophils (%) (Auto) 3% (0-3) Basophils (%) (Auto) 1% (0-3) Neutrophils # (Auto) 4.3x10^3uL (1.8-7.7) Lymphocytes # (Auto) 1.7x10^3/uL (1.0-4.8) Monocytes # (Auto) 0.8x10^3/uL (0.0-1.1) Eosinophils # (Auto) 0.2x10^3/uL (0.0-0.7) Basophils # (Auto) 0.1x10^3/uL (0.0-0.2) Sodium Level 139mmol/L (136-145) Potassium Level 3.9mmol/L (3.5-5.1) Chloride Level 101mmol/L (98-107) Carbon Dioxide Level 30mmol/L (21-32) Anion Gap 8 (6-14) Blood Urea Nitrogen 26mg/dL (7-20) Creatinine 3.8mg/dL (0.6-1.0) Estimated GFR (Cockcroft-Gault) 12.6 Glucose Level 117mg/dL (70-99) Calcium Level 8.7mg/dL (8.5-10.1) Phosphorus Level 4.3mg/dL (2.6-4.7) Magnesium Level 1.9mg/dL (1.8-2.4) Albumin 3.2g/dL (3.4-5.0) Glucose (Fingerstick) 114mg/dL (70-99) Laboratory Tests Test 08/19/16 13:56 08/19/16 15:59 08/19/16 20:53 08/20/16 03:30 Glucose (Fingerstick) 108mg/dL (70-99) 135mg/dL (70-99) 153mg/dL (70-99) White Blood Count 7.1x10^3/uL (4.0-11.0) Red Blood Count 3.24x10^6/uL (3.50-5.40) Hemoglobin 10.2g/dL (12.0-15.5) Hematocrit 30.9% (36.0-47.0) Mean Corpuscular Volume 95fL (79-100) Mean Corpuscular Hemoglobin 32pg (25-35) Mean Corpuscular Hemoglobin Concent 33g/dL (31-37) Red Cell Distribution Width 14.2% (11.5-14.5) Platelet Count 306x10^3/uL (140-400) Neutrophils (%) (Auto) 61% (31-73) Lymphocytes (%) (Auto) 23% (24-48) Monocytes (%) (Auto) 12% (0-9) Eosinophils (%) (Auto) 3% (0-3) Basophils (%) (Auto) 1% (0-3) Neutrophils # (Auto) 4.3x10^3uL (1.8-7.7) Lymphocytes # (Auto) 1.7x10^3/uL (1.0-4.8) Monocytes # (Auto) 0.8x10^3/uL (0.0-1.1) Eosinophils # (Auto) 0.2x10^3/uL (0.0-0.7) Basophils # (Auto) 0.1x10^3/uL (0.0-0.2) Sodium Level 139mmol/L (136-145) Potassium Level 3.9mmol/L (3.5-5.1) Chloride Level 101mmol/L (98-107) Carbon Dioxide Level 30mmol/L (21-32) Anion Gap 8 (6-14) Blood Urea Nitrogen 26mg/dL (7-20) Creatinine 3.8mg/dL (0.6-1.0) Estimated GFR (Cockcroft-Gault) 12.6 Glucose Level 117mg/dL (70-99) Calcium Level 8.7mg/dL (8.5-10.1) Phosphorus Level 4.3mg/dL (2.6-4.7) Magnesium Level 1.9mg/dL (1.8-2.4) Albumin 3.2g/dL (3.4-5.0) Test 08/20/16 07:42 Glucose (Fingerstick) 114mg/dL (70-99) Microbiology 08/16/16 Gram Stain - Final, Complete Medications Current Medications Fentanyl Citrate (Fentanyl 2ml Vial) 50 mcg 1X ONCE IV Last administered on t 07:01; Start 08/15/16 at 06:30; Stop 08/15/16 at 06:31; Status DC Ondansetron HCl (Zofran) 4 mg 1X ONCE IV Last administered on 08/15/16 06:57 ; Start 08/15/16 at 06:30; Stop 08/15/16 at 06:31; Status DC Ondansetron HCl (Zofran) 4 mg PRN Q8HRS PRN IV NAUSEA/VOMITING Last administered on 08/16/16 03:34; Start 08/15/16 at 08:30; Stop 08/16/16 at 08:29 ; Status DC Fentanyl Citrate (Fentanyl 2ml Vial) 50 mcg PRN Q2HR PRN IV PAIN Last administered on 08/16/16 06:08; Start 08/15/16 at 08:30; Stop 08/16/16 at 08:29 ; Status DC Acetaminophen (Tylenol) 650 mg PRN Q4HRS PRN PO FEVER Last administered on 08/15 13:36; Start 08/15/16 at 08:30; Stop 08/16/16 at 08:29; Status DC Levofloxacin/ Dextrose 1 each 1 each PRN DAILY PRN MC SEE COMMENTS; Start 08/15 at 08:30; Stop 08/15/16 at 14:35; Status DC Clindamycin Phosphate 50 ml @ 100 mls/hr Q8HRS IV ; Start 08/15/16 at 14:00; Stop 08/15/16 at 14:00; Status DC Levofloxacin/ Dextrose 100 ml @ 100 mls/hr Q48H IV Last administered on 08:21; Start 08/15/16 at 09:00; Stop 08/17/16 at 10:56; Status DC Clindamycin Phosphate (Cleocin 900mg Premix) 50 ml @ 100 mls/hr 1X ONCE IV ; Start 08/15/16 at 08:30; Stop 08/15/16 at 08:32; Status DC Vancomycin HCl 1 each 1 each PRN DAILY PRN MC SEE COMMENTS; Start 08/15/16 at 08:30; Stop 08/15/16 at 14:33; Status DC Metronidazole 100 ml @ 100 mls/hr Q12HR IV Last administered on 08/19/16 08: 26; Start 08/15/16 at 09:00; Stop 08/19/16 at 08:59; Status DC Vancomycin HCl/ Sodium Chloride (Iv Sodium Chloride 0.9% 500ml Bag) 500 ml @ 250 mls/hr 1X ONCE IV Last administered on 08/15/16 09:09; Start 08/15/16 at 09:00; Stop 08/15/16 at 10:59; Status DC Aspirin (Anthony Aspirin) 325 mg [id number] PO Last administered on 08/20/16 08: 31; Start 08/16/16 at 08:00 Docusate Sodium (Colace) 100 mg PRN BID PRN PO CONSTIPATION Last administered on 08/19/16 20:19; Start 08/15/16 at 14:30 Furosemide (Lasix) 80 mg [id number] PO Last administered on 08/20/16 08:35; Start 08/15/16 at 16:00 Morphine Sulfate (Ms Contin) 15 mg BID PO Last administered on 08/20/16 08:31 ; Start 08/15/16 at 14:30 Nitroglycerin (Nitrostat) 0.4 mg PRN Q5MIN PRN SL CHEST PAIN; Start 08/15/16 at 14:30 Oxycodone/ Acetaminophen (Percocet 10/325) 1 tab PRN Q6HRS PRN PO PAIN Last administered on 08/15/16 20:27; Start 08/15/16 at 14:30 Sevelamer Carbonate (Renvela) 800 mg TIDWMEALS PO ; Start 08/15/16 at 17:00; Stop 08/15/16 at 17:00; Status DC Ticagrelor (Brilinta) 90 mg BID PO ; Start 08/15/16 at 14:30; Stop 08/15/16 at 14:56; Status DC Tramadol HCl (Ultram) 50 mg Q6H PRN PO PAIN; Start 08/15/16 at 14:30 Atorvastatin Calcium (Lipitor) 80 mg QHS PO Last administered on 08/19/16 20: 18; Start 08/15/16 at 21:00 Fenofibrate (Lofibra) 134 mg QHS PO Last administered on 08/19/16 20:18; Start 08/15/16 at 21:00 Niacin 500 mg 500 mg QHS PO Last administered on 08/19/16 20:18; Start at 21:00 Magnesium Sulfate/ Dextrose 50 ml @ 25 mls/hr PRN DAILY PRN IV for Mag < 1.7 on am labs; Start 08/15/16 at 14:30 Vancomycin HCl/ Sodium Chloride (Iv Sodium Chloride 0.9% 500ml Bag) 500 ml @ 250 mls/hr 1X ONCE IV ; Start 08/15/16 at 14:30; Stop 08/15/16 at 16:29; Status UNV Vancomycin HCl 1 each 1 each PRN DAILY PRN MC SEE COMMENTS Last administered on 08/19/16 07:30; Start 08/15/16 at 14:30; Stop 08/19/16 at 08:59; Status DC Levofloxacin/ Dextrose (LEVAQUIN 750mg PREMIX) 150 ml @ 100 mls/hr 1X ONCE IV ; Start 08/15/16 at 14:30; Stop 08/15/16 at 15:59; Status UNV Levofloxacin/ Dextrose (Levaquin Per Pharmacy) 1 each PRN DAILY PRN MC SEE COMMENTS; Start 08/15/16 at 14:30; Status UNV Fluconazole (Diflucan) 100 mg DAILY PO ; Start 08/15/16 at 15:00; Stop 08/15/16 at 15:00; Status DC Insulin Aspart (Novolog) 0-9 UNITS TIDWMEALS SQ Last administered on 08/18/16 12:52; Start 08/15/16 at 17:00 Dextrose (Dextrose 50%-Water Syringe) 12.5 gm PRN Q15MIN PRN IV SEE COMMENTS; Start 08/15/16 at 14:30 Vancomycin HCl 1 each 1X ONCE MC Last administered on 08/16/16 06:00; Start 08/16/16 at 06:00; Stop 08/16/16 at 06:01; Status DC Fluconazole 100 mg 100 mg [id number] PO Last administered on 08/19/16 15:14; Start 08/15/16 at 16:00 Levofloxacin/ Dextrose (LEVAQUIN 750mg PREMIX) 150 ml @ 100 mls/hr QODAY IV ; Start 08/17/16 at 08:00; Status UNV Ticagrelor (Brilinta) 90 mg BID PO Last administered on 08/20/16 08:31; Start 08/15/16 at 21:00 Carvedilol (Coreg) 12.5 mg BIDWMEALS PO Last administered on 08/20/16 08:34; Start 08/15/16 at 17:00 Carvedilol (Coreg) 12.5 mg DAILY PO ; Start 08/16/16 at 09:00; Stop 08/16/16 at 09:00; Status DC Vitamin B Complex/ Vitamin C (Melly-Shabbir) 1 tab DAILY PO Last administered on 08:32; Start 08/16/16 at 09:00 Non-Formulary Medication 210 mg TIDWMEALS PO ; Start 08/15/16 at 17:00; Stop at 17:00; Status DC Gentamicin Sulfate 1 each 1 each PRN DAILY PRN MC SEE COMMENTS Last administered on 08/19/16 07:29; Start 08/15/16 at 16:00; Stop 08/19/16 at 08:59 ; Status DC Gentamicin Sulfate/Sodium Chloride (Gentamicin Sulfate/Iv Sodium Chloride 0.9% 100ml) 104.5 ml @ 209 mls/hr 1X ONCE IV Last administered on 08/15/16 17:48 ; Start 08/15/16 at 17:00; Stop 08/15/16 at 17:29; Status DC Gentamicin Sulfate 1 each 1X ONCE MC Last administered on 08/16/16 06:00; Start 08/16/16 at 06:00; Stop 08/16/16 at 06:01; Status DC Sevelamer Carbonate 800 mg 800 mg TIDWMEALS PO Last administered on 08/20/16 08:32; Start 08/15/16 at 17:00 Propofol (Diprivan) 20 ml @ As Directed STK-MED ONCE IV ; Start 08/16/16 at 07: 23; Stop 08/16/16 at 07:24; Status DC Lidocaine HCl (Lidocaine HCl 2% Abboject) 100 mg STK-MED ONCE .ROUTE ; Start at 07:23; Stop 08/16/16 at 07:24; Status DC Fentanyl Citrate (Fentanyl 2ml Vial) 100 mcg STK-MED ONCE .ROUTE ; Start at 07:24; Stop 08/16/16 at 07:25; Status DC Rocuronium [place] (Zemuron) 100 mg STK-MED ONCE .ROUTE ; Start 08/16/16 at 08: 03; Stop 08/16/16 at 08:04; Status DC Ondansetron HCl (Zofran) 4 mg STK-MED ONCE .ROUTE ; Start 08/16/16 at 08:18; Stop 08/16/16 at 08:19; Status DC Desflurane (Suprane) 30 ml STK-MED ONCE IH ; Start 08/16/16 at 08:18; Stop 08/16 at 08:19; Status DC Glycopyrrolate (Robinul) 1 mg STK-MED ONCE .ROUTE ; Start 08/16/16 at 08:19; Stop 08/16/16 at 08:20; Status DC Neostigmine Methylsulfate 5 mg STK-MED ONCE .ROUTE ; Start 08/16/16 at 08:19; Stop 08/16/16 at 08:20; Status DC Dexamethasone Sodium Phosphate (Decadron) 20 mg STK-MED ONCE .ROUTE ; Start at 08:39; Stop 08/16/16 at 08:40; Status DC Famotidine (Pepcid) 20 mg STK-MED ONCE .ROUTE ; Start 08/16/16 at 08:39; Stop at 08:40; Status DC Fentanyl Citrate (Fentanyl 2ml Vial) 100 mcg STK-MED ONCE .ROUTE ; Start at 09:16; Stop 08/16/16 at 09:17; Status DC Albuterol Sulfate (Ventolin Neb Soln) 2.5 mg STK-MED ONCE .ROUTE ; Start at 09:17; Stop 08/16/16 at 09:18; Status DC Morphine Sulfate 1 mg 1 mg PRN Q10MIN PRN IV SEVERE PAIN; Start 08/16/16 at 09: 30; Stop 08/16/16 at 14:00; Status DC Lactated Ringer's (Iv Lactated Ringers) 1,000 ml @ 30 mls/hr Q24H IV ; Start at 09:18; Stop 08/16/16 at 21:17; Status DC Lidocaine HCl 2 ml PRN 1X PRN ID PRIOR TO IV START; Start 08/16/16 at 09:30; Stop 08/16/16 at 14:00; Status DC Hydromorphone HCl (Dilaudid) 0.5 mg PRN Q10MIN PRN IV SEV PAIN, Second choice; Start 08/16/16 at 09:30; Stop 08/16/16 at 14:00; Status DC Prochlorperazine Edisylate (Compazine) 5 mg PACU PRN PRN IV NAUSEA, MRX1 Last administered on 08/16/16 11:05; Start 08/16/16 at 09:30; Stop 08/16/16 at 14:00 ; Status DC Albuterol Sulfate (Ventolin Neb Soln) 2.5 mg 1X ONCE NEB Last administered on 08/16/16 09:20; Start 08/16/16 at 09:30; Stop 08/16/16 at 09:31; Status DC Fentanyl Citrate (Fentanyl 2ml Vial) 25 mcg PRN Q5MIN PRN IV Acute Pain Last administered on 08/16/16 11:19; Start 08/16/16 at 09:30; Stop 08/16/16 at 14:00 ; Status DC Info (PHARMACY MONITORING -- do not chart) 1 each PRN DAILY PRN MC SEE COMMENTS ; Start 08/16/16 at 12:30 Vancomycin HCl 1 each 1X ONCE MC Last administered on 08/19/16 06:00; Start 08/19/16 at 06:00; Stop 08/19/16 at 06:01; Status DC Gentamicin Sulfate 1 each 1X ONCE MC Last administered on 08/19/16 06:00; Start 08/19/16 at 06:00; Stop 08/19/16 at 06:01; Status DC Insulin Detemir (Levemir) 10 units QHS SQ ; Start 08/16/16 at 21:00; Stop at 10:26; Status DC Heparin Sodium (Porcine) 5,000 unit Q8HRS SQ Last administered on 08/19/16 20: 26; Start 08/16/16 at 14:00 Lidocaine HCl (Xylocaine-Mpf 1% Vial) 2 ml STK-MED ONCE .ROUTE ; Start 08/16/16 at 13:46; Stop 08/16/16 at 13:47; Status DC Ondansetron HCl (Zofran) 4 mg PRN Q6HRS PRN IV NAUSEA/VOMITING Last administered on 08/20/16 08:46; Start 08/16/16 at 14:00 Fentanyl Citrate (Fentanyl 2ml Vial) 50 mcg PRN Q2HR PRN IV PAIN Last administered on 08/19/16 15:15; Start 08/16/16 at 14:00; Stop 08/19/16 at 16:36 ; Status DC Lidocaine HCl 2 ml 2 ml 1X ONCE INJ Last administered on 08/16/16 14:15; Start 08/16/16 at 14:15; Stop 08/16/16 at 14:16; Status DC Sodium Chloride 1,000 ml @ 1,000 mls/hr Q1H PRN IV hypotension; Start 08/16/16 at 14:11; Stop 08/16/16 at 20:10; Status DC Albumin Human (Albuminar) 200 ml @ 200 mls/hr 1X PRN PRN IV Hypotension; Start 08/16/16 at 14:15; Stop 08/16/16 at 20:14; Status DC Acetaminophen (Tylenol) 500 mg 1X PRN PRN PO MILD PAIN / TEMP; Start 08/16/16 at 14:15; Stop 08/17/16 at 14:14; Status DC Diphenhydramine HCl (Benadryl) 25 mg 1X PRN PRN IV ITCHING; Start 08/16/16 at 14:15; Stop 08/16/16 at 20:41; Status DC Diphenhydramine HCl (Benadryl) 25 mg 1X PRN PRN IV ITCHING; Start 08/16/16 at 14:15; Stop 08/16/16 at 20:41; Status DC Labetalol HCl (Normodyne) 10 mg PRN Q1HR PRN IVP SBP > 180; Start 08/16/16 at 14:15; Stop 08/16/16 at 20:42; Status DC Clonidine HCl 0.1 mg 0.1 mg 1X PRN PRN PO SBP > 180; Start 08/16/16 at 14:15; Stop 08/16/16 at 20:40; Status DC Sodium Chloride (Iv Sodium Chloride 0.9% 1000ml Bag) 1,000 ml @ 400 mls/hr Q2H30M PRN IV PATENCY; Start 08/16/16 at 14:11; Stop 08/17/16 at 02:10; Status DC Info (PHARMACY MONITORING -- do not chart) 1 each PRN DAILY PRN MC SEE COMMENTS ; Start 08/16/16 at 14:15; Status Cancel Diphenhydramine HCl (Benadryl) 25 mg PRN Q6HRS PRN IVP ITCHING Last administered on 08/19/16 21:33; Start 08/18/16 at 03:00 Ondansetron HCl (Zofran) 4 mg 1X ONCE IV Last administered on 08/18/16 08:57 ; Start 08/18/16 at 09:00; Stop 08/18/16 at 09:01; Status DC Midazolam HCl (Versed) 2 mg STK-MED ONCE .ROUTE ; Start 08/18/16 at 09:11; Stop 08/18/16 at 09:12; Status DC Fentanyl Citrate (Fentanyl 2ml Vial) 50 mcg PACU PRN PRN IV PAIN Last administered on 08/18/16 09:26; Start 08/18/16 at 08:30; Stop 08/19/16 at 16:36 ; Status DC Midazolam HCl (Versed) 2 mg 1X ONCE IV Last administered on 08/18/16 09:15; Start 08/18/16 at 08:30; Stop 08/18/16 at 09:28; Status DC Insulin Detemir (Levemir) 14 units QHS SQ Last administered on 08/19/16 21:25 ; Start 08/18/16 at 21:00 Hydromorphone HCl (Dilaudid) 2 mg PRN Q2HR PRN IV PAIN Last administered on 08:47; Start 08/18/16 at 12:30 Lidocaine/Sodium Bicarbonate 20 ml 20 ml STK-MED ONCE IJ ; Start 08/18/16 at 15: 51; Stop 08/18/16 at 15:52; Status DC Heparin Sodium/ Sodium Chloride 500 ml @ As Directed STK-MED ONCE .ROUTE ; Start 08/18/16 at 15:51; Stop 08/18/16 at 15:52; Status DC Lidocaine/Sodium Bicarbonate (Buffered Lidocaine 1%) 3 ml 1X ONCE IJ Last administered on 08/18/16 16:42; Start 08/18/16 at 16:30; Stop 08/18/16 at 16:31 ; Status DC Heparin Sodium/ Sodium Chloride 60 unit 1X ONCE IV Last administered on 16:42; Start 08/18/16 at 16:30; Stop 08/18/16 at 16:31; Status DC Midazolam HCl (Versed) 2 mg STK-MED ONCE .ROUTE ; Start 08/18/16 at 16:47; Stop 08/18/16 at 16:48; Status DC Gelatin (Gelfoam Size 12-7mm) 1 each STK-MED ONCE .ROUTE ; Start 08/18/16 at 17 :05; Stop 08/18/16 at 17:06; Status DC Midazolam HCl (Versed) 1 mg 1X ONCE IV Last administered on 08/18/16 17:18; Start 08/18/16 at 17:15; Stop 08/18/16 at 17:16; Status DC Fentanyl Citrate (Fentanyl 2ml Vial) 50 mcg 1X ONCE IV Last administered on 17:19; Start 08/18/16 at 17:15; Stop 08/18/16 at 17:16; Status DC Heparin Sodium (Porcine) (Hep Lock Adult) 500 unit STK-MED ONCE IV ; Start 08/18 at 17:12; Stop 08/18/16 at 17:13; Status DC Heparin Sodium (Porcine) 500 unit 500 unit 1X ONCE IV Last administered on 17:18; Start 08/18/16 at 17:15; Stop 08/18/16 at 17:20; Status DC Promethazine HCl/ Sodium Chloride (Phenergan/Iv Sodium Chloride 0.9% 50ml) 50.5 ml @ 101 mls/hr PRN Q6HRS PRN IV NAUSEA/VOMITING; Start 08/18/16 at 22:45; Status UNV Prochlorperazine Edisylate 10 mg 10 mg PRN Q8HRS PRN IV NAUSEA/VOMITING Last administered on 08/20/16 03:06; Start 08/18/16 at 22:45 Vancomycin HCl 500 mg/Sodium Chloride 100 ml @ 100 mls/hr QTUTHSA IV ; Start at 16:00; Stop 08/19/16 at 16:00; Status DC Gentamicin Sulfate 140 mg/ Sodium Chloride 103.5 ml @ 207 mls/hr 1X ONCE IV ; Start 08/19/16 at 16:00; Stop 08/19/16 at 16:00; Status DC Cefazolin Sodium 1 gm/Sodium Chloride 50 ml @ 100 mls/hr DAILY IV Last administered on 08/20/16t 08:35; Start 08/19/16 at 10:00 Sodium Chloride (Iv Sodium Chloride 0.9% 1000ml Bag) 1,000 ml @ 1,000 mls/hr Q1H PRN IV hypotension; Start 08/19/16 at 11:28; Stop 08/19/16 at 17:27; Status DC Info (PHARMACY MONITORING -- do not chart) 1 each PRN DAILY PRN MC SEE COMMENTS ; Start 08/19/16 at 11:30 Info (PHARMACY MONITORING -- do not chart) 1 each PRN DAILY PRN MC SEE COMMENTS ; Start 08/19/16 at 11:30; Status UNV Active Scripts Active Percocet 10-325 Mg Tablet (Oxycodone/Acetaminophen) 1 Each Tablet 1 Tab PO Q4HRS Morphine Sulfate Er (Morphine Sulfate) 15 Mg Tablet.er 15 Mg PO BID Reported [auryxia] 210 Mg PO TIDWMEALS Carvedilol 12.5 Mg Tablet 1 Tab PO DAILY Carvedilol 12.5 Mg Tablet 1 Tab PO BID Nephro-Shabbir Tablet (Folic Acid/Vitamin B Comp W-C) 0.8 Mg Tablet 1 Tab PO DAILY Fluconazole 100 Mg Tablet 150 Mg PO PRN PRN Ciprofloxacin Hcl 250 Mg Tablet 250 Mg PO PRN BID PRN Tramadol Hcl 50 Mg Tablet 50 Mg PO Q6H PRN Brilinta (Ticagrelor) 90 Mg Tablet 90 Mg PO DAILY Tricor (Fenofibrate Nanocrystallized) 145 Mg Tablet 1 Tab PO HS Lipitor (Atorvastatin Calcium) 80 Mg Tablet 80 Mg PO HS Niacin 500 Mg Tablet 500 Mg PO HS Lantus (Insulin Glargine,Hum.rec.anlog) 100 Unit/1 Ml Vial 10 Unit SQ HS PRN only if blood sugar >150 at bedtime. Novolog (Insulin Aspart) 100 Unit/1 Ml Cartridge 0 SQ TIDAC sliding scale Aspirin 325 Mg Tablet 325 Mg PO DAILY Furosemide 80 Mg Tablet 80 Mg PO BID Docusate Sodium 100 Mg Capsule 1 Cap PO PRN PRN Nitrostat (Nitroglycerin) 0.4 Mg Tab.subl 0.4 Mg SL PRN Q5MIN PRN Take as needed for chest pain Vitals/I & O Vital Sign - Last 24 Hours 08/19/16 08/19/16 08/19/16 08/19/16 12:40 13:59 15:00 15:15 Temp 97.9 97.9 Pulse 79 Resp 16 B/P 175/78 Pulse Ox 99 O2 Delivery Room Air Room Air Room Air Room Air 08/19/16 08/19/16 08/19/16 08/19/16 16:04 19:00 20:07 20:19 Temp 99.3 99.3 Pulse 84 Resp 18 20 B/P 140/75 Pulse Ox 95 95 O2 Delivery Room Air Room Air Room Air Room Air 08/19/16 08/19/16 08/20/16 08/20/16 20:20 23:00 00:20 03:00 Temp 98.4 98.1 98.4 98.1 Pulse 85 75 Resp 20 18 20 18 B/P 132/64 125/69 Pulse Ox 95 94 94 96 O2 Delivery Room Air Room Air Room Air Room Air 08/20/16 08/20/16 08/20/16 08/20/16 03:06 03:36 07:00 08:31 Temp 98.1 98.1 Pulse 76 Resp 20 20 16 B/P 124/70 Pulse Ox 94 94 95 O2 Delivery Room Air Room Air Room Air Room Air 08/20/16 08/20/16 08:34 08:47 Pulse 76 B/P 124/70 O2 Delivery Room Air Intake and Output 08/19/16 08/19/16 08/20/16 15:00 23:00 07:00 Intake Total 0 ml 200 ml Output Total 0 ml Balance 0 ml 200 ml ROMI GOSS MD Aug 20, 2016 09:03
--- NOTE | 2016-08-20 09:35 | PDOC ---
Infectious Disease Note Subjective Subjective Mild N/V which she attributes to gastroparesis and abx - better ROS ROS GEN: Denies fevers, chills, sweats HEENT: Denies blurred vision, sore throat CV: Denies chest pain RESP: Denies shortness of air, cough GI: Denies n/v/d NEURO: Denies confusion, dizziness MSK: Denies weakness, joint pain/swelling Vital Sign Vital Signs Vital Signs Date Time Temp Pulse Resp B/P Pulse Ox O2 Delivery O2 Flow Rate FiO2 08/20/16 08:47 Room Air 08/20/16 08:34 76 124/70 08/20/16 07:00 98.1 16 95 98.1 Physical Exam PHYSICAL EXAM GENERAL: Sitting on the side of the bed, right leg dangling HEENT: OC/OP clear LUNGS: Clear HEART: S1S2, no gallop, no murmur ABD: Soft, NT EXT: Previous left BKA unremarkable. RLE edema, warm. Wound vac in place great toe RUE AV fistula PERIANESTHESIA RN: Alert, oriented x 3 SKIN: No rash IV: Left chest clean Labs Lab Laboratory Tests Test 08/19/16 13:56 08/19/16 15:59 08/19/16 20:53 08/20/16 03:30 Glucose (Fingerstick) 108mg/dL (70-99) 135mg/dL (70-99) 153mg/dL (70-99) White Blood Count 7.1x10^3/uL (4.0-11.0) Red Blood Count 3.24x10^6/uL (3.50-5.40) Hemoglobin 10.2g/dL (12.0-15.5) Hematocrit 30.9% (36.0-47.0) Mean Corpuscular Volume 95fL (79-100) Mean Corpuscular Hemoglobin 32pg (25-35) Mean Corpuscular Hemoglobin Concent 33g/dL (31-37) Red Cell Distribution Width 14.2% (11.5-14.5) Platelet Count 306x10^3/uL (140-400) Neutrophils (%) (Auto) 61% (31-73) Lymphocytes (%) (Auto) 23% (24-48) Monocytes (%) (Auto) 12% (0-9) Eosinophils (%) (Auto) 3% (0-3) Basophils (%) (Auto) 1% (0-3) Neutrophils # (Auto) 4.3x10^3uL (1.8-7.7) Lymphocytes # (Auto) 1.7x10^3/uL (1.0-4.8) Monocytes # (Auto) 0.8x10^3/uL (0.0-1.1) Eosinophils # (Auto) 0.2x10^3/uL (0.0-0.7) Basophils # (Auto) 0.1x10^3/uL (0.0-0.2) Sodium Level 139mmol/L (136-145) Potassium Level 3.9mmol/L (3.5-5.1) Chloride Level 101mmol/L (98-107) Carbon Dioxide Level 30mmol/L (21-32) Anion Gap 8 (6-14) Blood Urea Nitrogen 26mg/dL (7-20) Creatinine 3.8mg/dL (0.6-1.0) Estimated GFR (Cockcroft-Gault) 12.6 Glucose Level 117mg/dL (70-99) Calcium Level 8.7mg/dL (8.5-10.1) Phosphorus Level 4.3mg/dL (2.6-4.7) Magnesium Level 1.9mg/dL (1.8-2.4) Albumin 3.2g/dL (3.4-5.0) Test 08/20/16 07:42 Glucose (Fingerstick) 114mg/dL (70-99) Objective Assessment 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 MSSA Nausea ? meds + gastroparesis s/p I and D, bone bx and application of wound vac, 08/16 Leukocytosis Antibiotic allergy to meropenem & pip/tazo causing peeling and bleeding of skin. Also sulfa. 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
[2016-08-20] MEDS: OXYCODONE/APAP 10/325 TABLET. PO PRN ×2 (10:02→17:23)
--- NOTE | 2016-08-20 10:46 | PDOC ---
SUBJECTIVE ROS ESRD Doing and feeling well overall CVS: no Orthopnea, no CP RESP: no SOB, no SAVAGE GI: + Nausea, + Vomiting (YEst now better) : n Dysuria, juan r Urgency OBJECTIVE Vital Signs Vital Signs Date Time Temp Pulse Resp B/P Pulse Ox O2 Delivery O2 Flow Rate FiO2 08/20/16 10:02 Room Air 08/20/16 08:34 76 124/70 08/20/16 07:00 98.1 16 95 98.1 I & 0 Intake and Output 08/20/16 07:00 Intake Total 200 ml Output Total 0 ml Balance 200 ml Intake Oral 200 ml Output Urine Total 0 ml PHYSICAL EXAM Physical Exam GEN: Awake, Oriented x 3, In no distress EYES: Vision Unchanged, Conjunctiva Normal EN: No EN Drainage, Mucous Membranes moist NECK: no JVD, min JVP, Supple, no Thyromegaly CVS: S1S2, ? Murmur, No Gallop, No Rub,+ Edema RESP: no Rales, no Rhonchi,no Acc. Muscle Use GI: BS + ve, NO Bruit, Non Tender, Non Distended : no CVA tenderness, no Suprapubic Tenderness DIAGNOSIS/ASSESSMENT Assessment & Plan ESRD: Current fluid and E-lyte status does not necessitate emergent need for dialysis. Will re-evaluate for dialysis in the am and continue on TTSat schedule. ANEMIA; Aranap as ordered, Transfuse with next HD as needed HTN: Current BP meds as reviewed. See orders for changes. H/o ^ed Phos - better currently on current binder regimen and possibly due to pOor PO monica Discussed Plan of Care with pt at bedside Problems: COMMENT/RELEVANT DATA Meds Current Medications Medications (Trade) Dose Ordered Sig/Martin Start Time Stop Time Status Last Admin Dose Admin Acetaminophen (Tylenol) 500 mg 1X PRN PRN 08/16/16 14:15 08/17/16 14:14 DC Albumin Human (Albuminar) 200 ml @ 200 mls/hr 1X PRN PRN 08/16/16 14:15 08/16/16 20:14 DC Albuterol Sulfate (Ventolin Neb Soln) 2.5 mg 1X ONCE 08/16/16 09:30 08/16/16 09:31 DC 08/16/16 09:20 2.5 MG Aspirin (Anthony Aspirin) 325 mg [id number] 08/16/16 08:00 08/20/16 08:31 325 MG Atorvastatin Calcium (Lipitor) 80 mg QHS 08/15/16 21:00 08/19/16 20:18 80 MG Carvedilol (Coreg) 12.5 mg DAILY 08/16/16 09:00 08/16/16 09:00 DC Cefazolin Sodium 1 gm/Sodium Chloride 50 ml @ 100 mls/hr DAILY 08/19/16 10:00 08/20/16 08:35 100 MLS/HR Clindamycin Phosphate (Cleocin 900mg Premix) 50 ml @ 100 mls/hr 1X ONCE 08/15/16 08:30 08/15/16 08:32 DC Clonidine HCl (Catapres) 0.1 mg 1X PRN PRN 08/16/16 14:15 08/16/16 20:40 DC Desflurane (Suprane) 30 ml STK-MED ONCE 08/16/16 08:18 08/16/16 08:19 DC Dexamethasone Sodium Phosphate (Decadron) 20 mg STK-MED ONCE 08/16/16 08:39 08/16/16 08:40 DC Dextrose (Dextrose 50%-Water Syringe) 12.5 gm PRN Q15MIN PRN 08/15/16 14:30 Diphenhydramine HCl (Benadryl) 25 mg PRN Q6HRS PRN 08/18/16 03:00 08/19/16 21:33 25 MG Docusate Sodium (Colace) 100 mg PRN BID PRN 08/15/16 14:30 08/19/16 20:19 100 MG Famotidine (Pepcid) 20 mg STK-MED ONCE 08/16/16 08:39 08/16/16 08:40 DC Fenofibrate (Lofibra) 134 mg QHS 08/15/16 21:00 08/19/16 20:18 134 MG Fentanyl Citrate (Fentanyl 2ml Vial) 50 mcg 1X ONCE 08/18/16 17:15 08/18/16 17:16 DC 08/18/16 17:19 50 MCG Fluconazole (Diflucan) 100 mg DAILY 08/15/16 15:00 08/15/16 15:00 DC Fluconazole 100 mg 100 mg DAILY16 08/15/16 16:00 08/20/16 09:34 DC 08/19/16 15:14 100 MG Furosemide (Lasix) 80 mg BID94 08/15/16 16:00 08/20/16 08:35 80 MG Gelatin (Gelfoam Size 12-7mm) 1 each STK-MED ONCE 08/18/16 17:05 08/18/16 17:06 DC Gentamicin Sulfate 1 each 1 each PRN DAILY PRN 08/15/16 16:00 08/19/16 08:59 DC 08/19/16 07:29 1 EACH Gentamicin Sulfate 140 mg/ Sodium Chloride 103.5 ml @ 207 mls/hr 1X ONCE 08/19/16 16:00 08/19/16 16:00 DC Gentamicin Sulfate/Sodium Chloride (Gentamicin Sulfate/Iv Sodium Chloride 0.9% 100ml) 104.5 ml @ 209 mls/hr 1X ONCE 08/15/16 17:00 08/15/16 17:29 DC 08/15/16 17:48 209 MLS/HR Gentamicin Sulfate 1 each 1X ONCE 08/19/16 06:00 08/19/16 06:01 DC 08/19/16 06:00 1 EACH Glycopyrrolate (Robinul) 1 mg STK-MED ONCE 08/16/16 08:19 08/16/16 08:20 DC Heparin Sodium (Porcine) (Hep Lock Adult) 500 unit STK-MED ONCE 08/18/16 17:12 08/18/16 17:13 DC Heparin Sodium (Porcine) 500 unit 500 unit 1X ONCE 08/18/16 17:15 08/18/16 17:20 DC 08/18/16 17:18 500 UNIT Heparin Sodium/ Sodium Chloride 60 unit 1X ONCE 08/18/16 16:30 08/18/16 16:31 DC 08/18/16 16:42 60 UNIT Hydromorphone HCl (Dilaudid) 2 mg PRN Q2HR PRN 08/18/16 12:30 08/20/16 08:47 2 MG Info (PHARMACY MONITORING -- do not chart) 1 each PRN DAILY PRN 08/19/16 11:30 UNV Insulin Aspart (Novolog) 0-9 UNITS TIDWMEALS 08/15/16 17:00 08/18/16 12:52 4 UNITS Insulin Detemir (Levemir) 14 units QHS 08/18/16 21:00 08/19/16 21:25 14 UNITS Labetalol HCl (Normodyne) 10 mg PRN Q1HR PRN 08/16/16 14:15 08/16/16 20:42 DC Lactated Ringer's (Iv Lactated Ringers) 1,000 ml @ 30 mls/hr Q24H 08/16/16 09:18 08/16/16 21:17 DC Levofloxacin/ Dextrose (LEVAQUIN 750mg PREMIX) 150 ml @ 100 mls/hr QODAY 08/17/16 08:00 UNV Levofloxacin/ Dextrose (Levaquin Per Pharmacy) 1 each PRN DAILY PRN 08/15/16 14:30 UNV Levofloxacin/ Dextrose 1 each 1 each PRN DAILY PRN 08/15/16 08:30 08/15/16 14:35 DC Lidocaine HCl (Lidocaine HCl 2% Abboject) 100 mg STK-MED ONCE 08/16/16 07:23 08/16/16 07:24 DC Lidocaine HCl (Xylocaine-Mpf 1% Vial) 2 ml STK-MED ONCE 08/16/16 13:46 08/16/16 13:47 DC Lidocaine HCl 2 ml 2 ml 1X ONCE 08/16/16 14:15 08/16/16 14:16 DC 08/16/16 14:15 2 ML Lidocaine/Sodium Bicarbonate (Buffered Lidocaine 1%) 3 ml 1X ONCE 08/18/16 16:30 08/18/16 16:31 DC 08/18/16 16:42 3 ML Magnesium Sulfate/ Dextrose 50 ml @ 25 mls/hr PRN DAILY PRN 08/15/16 14:30 Metronidazole (FLAGYL 500Mmg PREMIX) 100 ml @ 100 mls/hr Q12HR 08/15/16 09:00 08/19/16 08:59 DC 08/19/16 08:26 100 MLS/HR Midazolam HCl (Versed) 1 mg 1X ONCE 08/18/16 17:15 08/18/16 17:16 DC 08/18/16 17:18 1 MG Morphine Sulfate (Ms Contin) 15 mg BID 08/15/16 14:30 08/20/16 08:31 15 MG Morphine Sulfate 1 mg 1 mg PRN Q10MIN PRN 08/16/16 09:30 08/16/16 14:00 DC Neostigmine Methylsulfate 5 mg STK-MED ONCE 08/16/16 08:19 08/16/16 08:20 DC Niacin 500 mg 500 mg QHS 08/15/16 21:00 08/19/16 20:18 500 MG Nitroglycerin (Nitrostat) 0.4 mg PRN Q5MIN PRN 08/15/16 14:30 Non-Formulary Medication 210 mg TIDWMEALS 08/15/16 17:00 08/15/16 17:00 DC Ondansetron HCl (Zofran) 4 mg 1X ONCE 08/18/16 09:00 08/18/16 09:01 DC 08/18/16 08:57 4 MG Oxycodone/ Acetaminophen (Percocet 10/325) 1 tab PRN Q6HRS PRN 08/15/16 14:30 08/20/16 10:02 1 TAB Prochlorperazine Edisylate (Compazine) 5 mg PACU PRN PRN 08/16/16 09:30 08/16/16 14:00 DC 08/16/16 11:05 5 MG Prochlorperazine Edisylate 10 mg 10 mg PRN Q8HRS PRN 08/18/16 22:45 08/20/16 03:06 10 MG Promethazine HCl/ Sodium Chloride (Phenergan/Iv Sodium Chloride 0.9% 50ml) 50.5 ml @ 101 mls/hr PRN Q6HRS PRN 08/18/16 22:45 UNV Propofol (Diprivan) 20 ml @ As Directed STK-MED ONCE 08/16/16 07:23 08/16/16 07:24 DC Rocuronium Allen (Zemuron) 100 mg STK-MED ONCE 08/16/16 08:03 08/16/16 08:04 DC Sevelamer Carbonate (Renvela) 800 mg TIDWMEALS 08/15/16 17:00 08/15/16 17:00 DC Sevelamer Carbonate 800 mg 800 mg TIDWMEALS 08/15/16 17:00 08/20/16 08:32 800 MG Sodium Chloride (Iv Sodium Chloride 0.9% 1000ml Bag) 1,000 ml @ 1,000 mls/hr Q1H PRN 08/19/16 11:28 08/19/16 17:27 DC Ticagrelor (Brilinta) 90 mg BID 08/15/16 21:00 08/20/16 08:31 90 MG Tramadol HCl (Ultram) 50 mg Q6H PRN 08/15/16 14:30 Vancomycin HCl (Vanco Per Pharmacy) 1 each PRN DAILY PRN 08/15/16 14:30 08/19/16 08:59 DC 08/19/16 07:30 1 EACH Vancomycin HCl 500 mg/Sodium Chloride 100 ml @ 100 mls/hr QTUTHSA 08/19/16 16:00 08/19/16 16:00 DC Vancomycin HCl 1 each 1 each PRN DAILY PRN 08/15/16 08:30 08/15/16 14:33 DC Vancomycin HCl/ Sodium Chloride (Iv Sodium Chloride 0.9% 500ml Bag) 500 ml @ 250 mls/hr 1X ONCE 08/15/16 14:30 08/15/16 16:29 UNV Vitamin B Complex/ Vitamin C (Melly-Shabbir) 1 tab DAILY 08/16/16 09:00 08/20/16 08:32 1 TAB Lab Laboratory Tests Test 08/19/16 13:56 08/19/16 15:59 08/19/16 20:53 08/20/16 03:30 Glucose (Fingerstick) 108mg/dL (70-99) 135mg/dL (70-99) 153mg/dL (70-99) White Blood Count 7.1x10^3/uL (4.0-11.0) Red Blood Count 3.24x10^6/uL (3.50-5.40) Hemoglobin 10.2g/dL (12.0-15.5) Hematocrit 30.9% (36.0-47.0) Mean Corpuscular Volume 95fL (79-100) Mean Corpuscular Hemoglobin 32pg (25-35) Mean Corpuscular Hemoglobin Concent 33g/dL (31-37) Red Cell Distribution Width 14.2% (11.5-14.5) Platelet Count 306x10^3/uL (140-400) Neutrophils (%) (Auto) 61% (31-73) Lymphocytes (%) (Auto) 23% (24-48) Monocytes (%) (Auto) 12% (0-9) Eosinophils (%) (Auto) 3% (0-3) Basophils (%) (Auto) 1% (0-3) Neutrophils # (Auto) 4.3x10^3uL (1.8-7.7) Lymphocytes # (Auto) 1.7x10^3/uL (1.0-4.8) Monocytes # (Auto) 0.8x10^3/uL (0.0-1.1) Eosinophils # (Auto) 0.2x10^3/uL (0.0-0.7) Basophils # (Auto) 0.1x10^3/uL (0.0-0.2) Sodium Level 139mmol/L (136-145) Potassium Level 3.9mmol/L (3.5-5.1) Chloride Level 101mmol/L (98-107) Carbon Dioxide Level 30mmol/L (21-32) Anion Gap 8 (6-14) Blood Urea Nitrogen 26mg/dL (7-20) Creatinine 3.8mg/dL (0.6-1.0) Estimated GFR (Cockcroft-Gault) 12.6 Glucose Level 117mg/dL (70-99) Calcium Level 8.7mg/dL (8.5-10.1) Phosphorus Level 4.3mg/dL (2.6-4.7) Magnesium Level 1.9mg/dL (1.8-2.4) Albumin 3.2g/dL (3.4-5.0) Test 08/20/16 07:42 Glucose (Fingerstick) 114mg/dL (70-99) BEAR LÓPEZ MD Aug 20, 2016 10:46
[2016-08-20 10:58] VITALS: BP 129/63
--- NOTE | 2016-08-20 12:09 | PDOC ---
ORTHO PROGRESS NOTES Subjective Pain better, less nausea Vitals Vital Signs Date Time Temp Pulse Resp B/P Pulse Ox O2 Delivery O2 Flow Rate FiO2 08/20/16 10:58 97.7 77 18 129/63 94 Room Air 97.7 Labs Laboratory Tests Test 08/18/16 16:24 08/18/16 22:18 08/19/16 06:15 08/19/16 07:53 Glucose (Fingerstick) 134mg/dL (70-99) 209mg/dL (70-99) 140mg/dL (70-99) Sodium Level 139mmol/L (136-145) Potassium Level 4.0mmol/L (3.5-5.1) Chloride Level 97mmol/L (98-107) Carbon Dioxide Level 32mmol/L (21-32) Anion Gap 10 (6-14) Blood Urea Nitrogen 54mg/dL (7-20) Creatinine 6.0mg/dL (0.6-1.0) Estimated GFR (Cockcroft-Gault) 7.4 Glucose Level 178mg/dL (70-99) Calcium Level 8.6mg/dL (8.5-10.1) Phosphorus Level 6.3mg/dL (2.6-4.7) Magnesium Level 2.1mg/dL (1.8-2.4) Albumin 3.3g/dL (3.4-5.0) Random Gentamicin Level 1.6mcg/mL Random Vancomycin Level 15.3mcg/mL Test 08/19/16 13:56 08/19/16 15:59 08/19/16 20:53 08/20/16 03:30 Glucose (Fingerstick) 108mg/dL (70-99) 135mg/dL (70-99) 153mg/dL (70-99) White Blood Count 7.1x10^3/uL (4.0-11.0) Red Blood Count 3.24x10^6/uL (3.50-5.40) Hemoglobin 10.2g/dL (12.0-15.5) Hematocrit 30.9% (36.0-47.0) Mean Corpuscular Volume 95fL (79-100) Mean Corpuscular Hemoglobin 32pg (25-35) Mean Corpuscular Hemoglobin Concent 33g/dL (31-37) Red Cell Distribution Width 14.2% (11.5-14.5) Platelet Count 306x10^3/uL (140-400) Neutrophils (%) (Auto) 61% (31-73) Lymphocytes (%) (Auto) 23% (24-48) Monocytes (%) (Auto) 12% (0-9) Eosinophils (%) (Auto) 3% (0-3) Basophils (%) (Auto) 1% (0-3) Neutrophils # (Auto) 4.3x10^3uL (1.8-7.7) Lymphocytes # (Auto) 1.7x10^3/uL (1.0-4.8) Monocytes # (Auto) 0.8x10^3/uL (0.0-1.1) Eosinophils # (Auto) 0.2x10^3/uL (0.0-0.7) Basophils # (Auto) 0.1x10^3/uL (0.0-0.2) Sodium Level 139mmol/L (136-145) Potassium Level 3.9mmol/L (3.5-5.1) Chloride Level 101mmol/L (98-107) Carbon Dioxide Level 30mmol/L (21-32) Anion Gap 8 (6-14) Blood Urea Nitrogen 26mg/dL (7-20) Creatinine 3.8mg/dL (0.6-1.0) Estimated GFR (Cockcroft-Gault) 12.6 Glucose Level 117mg/dL (70-99) Calcium Level 8.7mg/dL (8.5-10.1) Phosphorus Level 4.3mg/dL (2.6-4.7) Magnesium Level 1.9mg/dL (1.8-2.4) Albumin 3.2g/dL (3.4-5.0) Test 08/20/16 07:42 08/20/16 10:28 Glucose (Fingerstick) 114mg/dL (70-99) 102mg/dL (70-99) Laboratory Tests Test 08/19/16 13:56 08/19/16 15:59 08/19/16 20:53 08/20/16 03:30 Glucose (Fingerstick) 108mg/dL (70-99) 135mg/dL (70-99) 153mg/dL (70-99) White Blood Count 7.1x10^3/uL (4.0-11.0) Red Blood Count 3.24x10^6/uL (3.50-5.40) Hemoglobin 10.2g/dL (12.0-15.5) Hematocrit 30.9% (36.0-47.0) Mean Corpuscular Volume 95fL (79-100) Mean Corpuscular Hemoglobin 32pg (25-35) Mean Corpuscular Hemoglobin Concent 33g/dL (31-37) Red Cell Distribution Width 14.2% (11.5-14.5) Platelet Count 306x10^3/uL (140-400) Neutrophils (%) (Auto) 61% (31-73) Lymphocytes (%) (Auto) 23% (24-48) Monocytes (%) (Auto) 12% (0-9) Eosinophils (%) (Auto) 3% (0-3) Basophils (%) (Auto) 1% (0-3) Neutrophils # (Auto) 4.3x10^3uL (1.8-7.7) Lymphocytes # (Auto) 1.7x10^3/uL (1.0-4.8) Monocytes # (Auto) 0.8x10^3/uL (0.0-1.1) Eosinophils # (Auto) 0.2x10^3/uL (0.0-0.7) Basophils # (Auto) 0.1x10^3/uL (0.0-0.2) Sodium Level 139mmol/L (136-145) Potassium Level 3.9mmol/L (3.5-5.1) Chloride Level 101mmol/L (98-107) Carbon Dioxide Level 30mmol/L (21-32) Anion Gap 8 (6-14) Blood Urea Nitrogen 26mg/dL (7-20) Creatinine 3.8mg/dL (0.6-1.0) Estimated GFR (Cockcroft-Gault) 12.6 Glucose Level 117mg/dL (70-99) Calcium Level 8.7mg/dL (8.5-10.1) Phosphorus Level 4.3mg/dL (2.6-4.7) Magnesium Level 1.9mg/dL (1.8-2.4) Albumin 3.2g/dL (3.4-5.0) Test 08/20/16 07:42 08/20/16 10:28 Glucose (Fingerstick) 114mg/dL (70-99) 102mg/dL (70-99) Notes A and A in bed RLE: vac in place with good seal, otherwise exam largely unchanged Assessment and Plan ok to D/C once home VAC set up UZMA JAIMES II, MD Aug 20, 2016 12:09
[2016-08-20 15:00] VITALS: BP 127/47
[2016-08-20 19:00] VITALS: BP 152/73
[2016-08-20] MEDS: ATORVASTATIN CALCIUM 40 MG TABLET. PO SCH (20:43)
[2016-08-20] MEDS: FENOFIBRATE,MICRONIZED 134 MG CAPSULE PO SCH (20:44)
[2016-08-20] MEDS: NIACIN ER 500 MG TABLET.ER PO SCH (20:44)
[2016-08-20] MEDS: INSULIN DETEMIR 300 UNITS/3 ML INSULN.PEN. SQ SCH (20:50)
[2016-08-20] MEDS ORDERED: DARBEPOETIN ALFA 60 MCG/0.3 ML DISP.SYRIN. SQ SCH (21:00)
[2016-08-20 23:00] VITALS: BP 148/76
[2016-08-21 03:00] VITALS: BP 161/82
[2016-08-21] MEDS: diphenhydrAMINE 50 MG/ML VIAL IVP PRN (03:21)
[2016-08-21 05:30] LABS: BASO # 0.1 x10^3/uL (0.0-0.2); BASO % 1 % (0-3); EOS % 4 % (0-3); HEMATOCRIT 31.4 % (36.0-47.0); HEMOGLOBIN 10.8 g/dL (12.0-15.5); LYMPH # 1.3 x10^3/uL (1.0-4.8); LYMPH % 15 % (24-48); MEAN CORPUSCULAR HEMOGLOBIN 32 pg (25-35); MEAN CORPUSCULAR HGB CONC 35 g/dL (31-37); MEAN CORPUSCULAR VOLUME 94 fL (79-100); MONO % 10 % (0-9); NEUT % 69 % (31-73); PLATELET COUNT 307 x10^3/uL (140-400); RED BLOOD COUNT 3.36 x10^6/uL (3.50-5.40); RED CELL DISTRIBUTION WIDTH 13.5 % (11.5-14.5); WHITE BLOOD COUNT 8.9 x10^3/uL (4.0-11.0)
[2016-08-21] MEDS: HEPARIN PF for SUB-Q USE 5,000 UNIT/0.5 ML VIAL. SQ SCH ×2 (05:30→12:27)
[2016-08-21] MEDS: PROCHLORPERAZINE 10 MG/2 ML VIAL. IV PRN (05:30)
[2016-08-21] MEDS: HYDROmorphone 2 MG/ML VIAL IV PRN ×3 (05:30→12:26)
[2016-08-21 05:56] LABS: ALBUMIN 3.2 g/dL (3.4-5.0); CALCIUM 8.7 mg/dL (8.5-10.1); CREATININE 5.1 mg/dL (0.6-1.0); POTASSIUM 3.9 mmol/L (3.5-5.1)
[2016-08-21] MEDS ORDERED: IV NORMAL SALINE 1000ML BAG 1,000 ML IV PRN (07:57)
[2016-08-21] MEDS: INSULIN ASPART 300 UNITS/3 ML INSULN.PEN SQ SCH ×2 (08:00→12:00)
[2016-08-21] MEDS ORDERED: DIALYSIS PATIENT. MC PRN ×2 (08:00)
--- NOTE | 2016-08-21 08:52 | PDOC ---
Dialysis Progress Note Dialysis Note Dialysis Note Seen on Hemodialysis, tolerating treatment Well Vitals on Hemodialysis: 127/57 68 afeb General Appearance: Awake: Alert Oriented x 3 Neck: No JVD or JVP Chest: CTA Ramiro Heart: S1 S2 Abdomen - Soft NTND Extremities - + Edema ESRD: Dialysis as below F 180 NR 3: 15 Hrs 3 K 2.5 Ca 140 Na 30 HC03 Qb 350 + Qd 500+ Heparin Units Uf 2 Kgs or to dry weight as tolerated May give 25-50 gms of 25% Albumin if needed to maintain Hemodynamic stability Treatment plan reviewed and discussed with clinical leader Vitals Vital Signs Vital Signs Date Time Temp Pulse Resp B/P Pulse Ox O2 Delivery O2 Flow Rate FiO2 08/21/16 06:05 Room Air 08/21/16 03:00 98.4 92 18 161/82 98 98.4 08/18/16 17:19 4.0 Labs Last Labs Laboratory Tests Test 08/19/16 13:56 08/19/16 15:59 08/19/16 20:53 08/20/16 03:30 Glucose (Fingerstick) 108mg/dL (70-99) 135mg/dL (70-99) 153mg/dL (70-99) White Blood Count 7.1x10^3/uL (4.0-11.0) Red Blood Count 3.24x10^6/uL (3.50-5.40) Hemoglobin 10.2g/dL (12.0-15.5) Hematocrit 30.9% (36.0-47.0) Mean Corpuscular Volume 95fL (79-100) Mean Corpuscular Hemoglobin 32pg (25-35) Mean Corpuscular Hemoglobin Concent 33g/dL (31-37) Red Cell Distribution Width 14.2% (11.5-14.5) Platelet Count 306x10^3/uL (140-400) Neutrophils (%) (Auto) 61% (31-73) Lymphocytes (%) (Auto) 23% (24-48) Monocytes (%) (Auto) 12% (0-9) Eosinophils (%) (Auto) 3% (0-3) Basophils (%) (Auto) 1% (0-3) Neutrophils # (Auto) 4.3x10^3uL (1.8-7.7) Lymphocytes # (Auto) 1.7x10^3/uL (1.0-4.8) Monocytes # (Auto) 0.8x10^3/uL (0.0-1.1) Eosinophils # (Auto) 0.2x10^3/uL (0.0-0.7) Basophils # (Auto) 0.1x10^3/uL (0.0-0.2) Sodium Level 139mmol/L (136-145) Potassium Level 3.9mmol/L (3.5-5.1) Chloride Level 101mmol/L (98-107) Carbon Dioxide Level 30mmol/L (21-32) Anion Gap 8 (6-14) Blood Urea Nitrogen 26mg/dL (7-20) Creatinine 3.8mg/dL (0.6-1.0) Estimated GFR (Cockcroft-Gault) 12.6 Glucose Level 117mg/dL (70-99) Calcium Level 8.7mg/dL (8.5-10.1) Phosphorus Level 4.3mg/dL (2.6-4.7) Magnesium Level 1.9mg/dL (1.8-2.4) Albumin 3.2g/dL (3.4-5.0) Test 08/20/16 07:42 08/20/16 10:28 08/20/16 17:30 08/20/16 20:45 Glucose (Fingerstick) 114mg/dL (70-99) 102mg/dL (70-99) 159mg/dL (70-99) 145mg/dL (70-99) Test 08/21/16 05:20 White Blood Count 8.9x10^3/uL (4.0-11.0) Red Blood Count 3.36x10^6/uL (3.50-5.40) Hemoglobin 10.8g/dL (12.0-15.5) Hematocrit 31.4% (36.0-47.0) Mean Corpuscular Volume 94fL (79-100) Mean Corpuscular Hemoglobin 32pg (25-35) Mean Corpuscular Hemoglobin Concent 35g/dL (31-37) Red Cell Distribution Width 13.5% (11.5-14.5) Platelet Count 307x10^3/uL (140-400) Neutrophils (%) (Auto) 69% (31-73) Lymphocytes (%) (Auto) 15% (24-48) Monocytes (%) (Auto) 10% (0-9) Eosinophils (%) (Auto) 4% (0-3) Basophils (%) (Auto) 1% (0-3) Neutrophils # (Auto) 6.2x10^3uL (1.8-7.7) Lymphocytes # (Auto) 1.3x10^3/uL (1.0-4.8) Monocytes # (Auto) 0.9x10^3/uL (0.0-1.1) Eosinophils # (Auto) 0.4x10^3/uL (0.0-0.7) Basophils # (Auto) 0.1x10^3/uL (0.0-0.2) Sodium Level 140mmol/L (136-145) Potassium Level 3.9mmol/L (3.5-5.1) Chloride Level 100mmol/L (98-107) Carbon Dioxide Level 31mmol/L (21-32) Anion Gap 9 (6-14) Blood Urea Nitrogen 35mg/dL (7-20) Creatinine 5.1mg/dL (0.6-1.0) Estimated GFR (Cockcroft-Gault) 9.0 Glucose Level 175mg/dL (70-99) Calcium Level 8.7mg/dL (8.5-10.1) Phosphorus Level 5.0mg/dL (2.6-4.7) Albumin 3.2g/dL (3.4-5.0) Laboratory Tests Test 08/20/16 10:28 08/20/16 17:30 08/20/16 20:45 08/21/16 05:20 Glucose (Fingerstick) 102mg/dL (70-99) 159mg/dL (70-99) 145mg/dL (70-99) White Blood Count 8.9x10^3/uL (4.0-11.0) Red Blood Count 3.36x10^6/uL (3.50-5.40) Hemoglobin 10.8g/dL (12.0-15.5) Hematocrit 31.4% (36.0-47.0) Mean Corpuscular Volume 94fL (79-100) Mean Corpuscular Hemoglobin 32pg (25-35) Mean Corpuscular Hemoglobin Concent 35g/dL (31-37) Red Cell Distribution Width 13.5% (11.5-14.5) Platelet Count 307x10^3/uL (140-400) Neutrophils (%) (Auto) 69% (31-73) Lymphocytes (%) (Auto) 15% (24-48) Monocytes (%) (Auto) 10% (0-9) Eosinophils (%) (Auto) 4% (0-3) Basophils (%) (Auto) 1% (0-3) Neutrophils # (Auto) 6.2x10^3uL (1.8-7.7) Lymphocytes # (Auto) 1.3x10^3/uL (1.0-4.8) Monocytes # (Auto) 0.9x10^3/uL (0.0-1.1) Eosinophils # (Auto) 0.4x10^3/uL (0.0-0.7) Basophils # (Auto) 0.1x10^3/uL (0.0-0.2) Sodium Level 140mmol/L (136-145) Potassium Level 3.9mmol/L (3.5-5.1) Chloride Level 100mmol/L (98-107) Carbon Dioxide Level 31mmol/L (21-32) Anion Gap 9 (6-14) Blood Urea Nitrogen 35mg/dL (7-20) Creatinine 5.1mg/dL (0.6-1.0) Estimated GFR (Cockcroft-Gault) 9.0 Glucose Level 175mg/dL (70-99) Calcium Level 8.7mg/dL (8.5-10.1) Phosphorus Level 5.0mg/dL (2.6-4.7) Albumin 3.2g/dL (3.4-5.0) Assessment Assessment Problems Medical Problems: (1) Diabetic foot ulcer with osteomyelitis Status: Acute (2) End-stage renal disease on hemodialysis Status: Acute Problems: Plan Plan of Care Problems Medical Problems: (1) Diabetic foot ulcer with osteomyelitis Status: Acute (2) End-stage renal disease on hemodialysis Status: Acute BEAR LÓPEZ MD Aug 21, 2016 08:52
[2016-08-21] MEDS: SEVELAMER CARBONATE 800 MG TABLET. PO SCH ×2 (12:00→12:23)
[2016-08-21] MEDS: FUROSEMIDE 80 MG TABLET. PO SCH (12:23)
[2016-08-21] MEDS: MORPHINE ER 15 MG TABLET.ER PO SCH (12:23)
[2016-08-21 12:24] VITALS: BP 161/82
[2016-08-21] MEDS: CARVEDILOL 12.5 MG TABLET. PO SCH (12:24)
[2016-08-21] MEDS: ASPIRIN 325 MG TABLET PO SCH (12:24)
[2016-08-21] MEDS: TICAGRELOR 90 MG TABLET. PO SCH (12:24)
[2016-08-21] MEDS: FOLIC/VIT B COMP W-C (RENAL) TABLET. PO SCH (12:24)
--- NOTE | 2016-08-21 15:02 | PDOC ---
PROGRESS NOTES Chief Complaint Chief Complaint R foot osteo ASSESSMENT AND PLAN: 1. R foot cellulitis/osteomyelitis: s/p I&D, on wound vac 08/16. on gent, vanco, diflucan, flagyl. wound cultures growing MSSA. Abx as per ID service. Dr Jolley following 2. DM2: borderline control. increase levemir 10->14, cont ISS 3. PAD: hx L BKA. R LE cold, chronically 4. CAD: hx CABG, and multiple stents. cont secondary prevention meds. 5. HTN: well controlled on current regimen 6. ESRD: on HD TTHSa 7. Prophylaxis: PPI, heparin History of Present Illness History of Present Illness doing ok, some pain and nausea, normal for her when hospitalized no new issues. foot less swollen, moving easier. wound vac in place Vitals Vitals Vital Signs Date Time Temp Pulse Resp B/P Pulse Ox O2 Delivery O2 Flow Rate FiO2 08/21/16 12:26 18 Room Air 08/21/16 12:24 92 161/82 08/21/16 03:00 98.4 98 98.4 Physical Exam General: Alert, Oriented X3, Cooperative Heart: Regular rate Lungs: Clear Abdomen: Normal bowel sounds, Soft Extremities: No clubbing, No cyanosis, Other (wound vac covering dorsal foot and toe wounds) Skin: No rashes Labs LABS Laboratory Tests Test 08/20/16 17:30 08/20/16 20:45 08/21/16 05:20 Glucose (Fingerstick) 159mg/dL (70-99) 145mg/dL (70-99) White Blood Count 8.9x10^3/uL (4.0-11.0) Red Blood Count 3.36x10^6/uL (3.50-5.40) Hemoglobin 10.8g/dL (12.0-15.5) Hematocrit 31.4% (36.0-47.0) Mean Corpuscular Volume 94fL (79-100) Mean Corpuscular Hemoglobin 32pg (25-35) Mean Corpuscular Hemoglobin Concent 35g/dL (31-37) Red Cell Distribution Width 13.5% (11.5-14.5) Platelet Count 307x10^3/uL (140-400) Neutrophils (%) (Auto) 69% (31-73) Lymphocytes (%) (Auto) 15% (24-48) Monocytes (%) (Auto) 10% (0-9) Eosinophils (%) (Auto) 4% (0-3) Basophils (%) (Auto) 1% (0-3) Neutrophils # (Auto) 6.2x10^3uL (1.8-7.7) Lymphocytes # (Auto) 1.3x10^3/uL (1.0-4.8) Monocytes # (Auto) 0.9x10^3/uL (0.0-1.1) Eosinophils # (Auto) 0.4x10^3/uL (0.0-0.7) Basophils # (Auto) 0.1x10^3/uL (0.0-0.2) Sodium Level 140mmol/L (136-145) Potassium Level 3.9mmol/L (3.5-5.1) Chloride Level 100mmol/L (98-107) Carbon Dioxide Level 31mmol/L (21-32) Anion Gap 9 (6-14) Blood Urea Nitrogen 35mg/dL (7-20) Creatinine 5.1mg/dL (0.6-1.0) Estimated GFR (Cockcroft-Gault) 9.0 Glucose Level 175mg/dL (70-99) Calcium Level 8.7mg/dL (8.5-10.1) Phosphorus Level 5.0mg/dL (2.6-4.7) Albumin 3.2g/dL (3.4-5.0) Assessment and Plan Assessmemt and Plan Problems Medical Problems: (1) Diabetic foot ulcer with osteomyelitis Status: Acute (2) End-stage renal disease on hemodialysis Status: Acute Problems: Comment Review of Relevant I have reviewed the following items bert (where applicable) has been applied. Labs Laboratory Tests Test 08/19/16 15:59 08/19/16 20:53 08/20/16 03:30 08/20/16 07:42 Glucose (Fingerstick) 135mg/dL (70-99) 153mg/dL (70-99) 114mg/dL (70-99) White Blood Count 7.1x10^3/uL (4.0-11.0) Red Blood Count 3.24x10^6/uL (3.50-5.40) Hemoglobin 10.2g/dL (12.0-15.5) Hematocrit 30.9% (36.0-47.0) Mean Corpuscular Volume 95fL (79-100) Mean Corpuscular Hemoglobin 32pg (25-35) Mean Corpuscular Hemoglobin Concent 33g/dL (31-37) Red Cell Distribution Width 14.2% (11.5-14.5) Platelet Count 306x10^3/uL (140-400) Neutrophils (%) (Auto) 61% (31-73) Lymphocytes (%) (Auto) 23% (24-48) Monocytes (%) (Auto) 12% (0-9) Eosinophils (%) (Auto) 3% (0-3) Basophils (%) (Auto) 1% (0-3) Neutrophils # (Auto) 4.3x10^3uL (1.8-7.7) Lymphocytes # (Auto) 1.7x10^3/uL (1.0-4.8) Monocytes # (Auto) 0.8x10^3/uL (0.0-1.1) Eosinophils # (Auto) 0.2x10^3/uL (0.0-0.7) Basophils # (Auto) 0.1x10^3/uL (0.0-0.2) Sodium Level 139mmol/L (136-145) Potassium Level 3.9mmol/L (3.5-5.1) Chloride Level 101mmol/L (98-107) Carbon Dioxide Level 30mmol/L (21-32) Anion Gap 8 (6-14) Blood Urea Nitrogen 26mg/dL (7-20) Creatinine 3.8mg/dL (0.6-1.0) Estimated GFR (Cockcroft-Gault) 12.6 Glucose Level 117mg/dL (70-99) Calcium Level 8.7mg/dL (8.5-10.1) Phosphorus Level 4.3mg/dL (2.6-4.7) Magnesium Level 1.9mg/dL (1.8-2.4) Albumin 3.2g/dL (3.4-5.0) Test 08/20/16 10:28 08/20/16 17:30 08/20/16 20:45 08/21/16 05:20 Glucose (Fingerstick) 102mg/dL (70-99) 159mg/dL (70-99) 145mg/dL (70-99) White Blood Count 8.9x10^3/uL (4.0-11.0) Red Blood Count 3.36x10^6/uL (3.50-5.40) Hemoglobin 10.8g/dL (12.0-15.5) Hematocrit 31.4% (36.0-47.0) Mean Corpuscular Volume 94fL (79-100) Mean Corpuscular Hemoglobin 32pg (25-35) Mean Corpuscular Hemoglobin Concent 35g/dL (31-37) Red Cell Distribution Width 13.5% (11.5-14.5) Platelet Count 307x10^3/uL (140-400) Neutrophils (%) (Auto) 69% (31-73) Lymphocytes (%) (Auto) 15% (24-48) Monocytes (%) (Auto) 10% (0-9) Eosinophils (%) (Auto) 4% (0-3) Basophils (%) (Auto) 1% (0-3) Neutrophils # (Auto) 6.2x10^3uL (1.8-7.7) Lymphocytes # (Auto) 1.3x10^3/uL (1.0-4.8) Monocytes # (Auto) 0.9x10^3/uL (0.0-1.1) Eosinophils # (Auto) 0.4x10^3/uL (0.0-0.7) Basophils # (Auto) 0.1x10^3/uL (0.0-0.2) Sodium Level 140mmol/L (136-145) Potassium Level 3.9mmol/L (3.5-5.1) Chloride Level 100mmol/L (98-107) Carbon Dioxide Level 31mmol/L (21-32) Anion Gap 9 (6-14) Blood Urea Nitrogen 35mg/dL (7-20) Creatinine 5.1mg/dL (0.6-1.0) Estimated GFR (Cockcroft-Gault) 9.0 Glucose Level 175mg/dL (70-99) Calcium Level 8.7mg/dL (8.5-10.1) Phosphorus Level 5.0mg/dL (2.6-4.7) Albumin 3.2g/dL (3.4-5.0) Laboratory Tests Test 08/20/16 17:30 08/20/16 20:45 08/21/16 05:20 Glucose (Fingerstick) 159mg/dL (70-99) 145mg/dL (70-99) White Blood Count 8.9x10^3/uL (4.0-11.0) Red Blood Count 3.36x10^6/uL (3.50-5.40) Hemoglobin 10.8g/dL (12.0-15.5) Hematocrit 31.4% (36.0-47.0) Mean Corpuscular Volume 94fL (79-100) Mean Corpuscular Hemoglobin 32pg (25-35) Mean Corpuscular Hemoglobin Concent 35g/dL (31-37) Red Cell Distribution Width 13.5% (11.5-14.5) Platelet Count 307x10^3/uL (140-400) Neutrophils (%) (Auto) 69% (31-73) Lymphocytes (%) (Auto) 15% (24-48) Monocytes (%) (Auto) 10% (0-9) Eosinophils (%) (Auto) 4% (0-3) Basophils (%) (Auto) 1% (0-3) Neutrophils # (Auto) 6.2x10^3uL (1.8-7.7) Lymphocytes # (Auto) 1.3x10^3/uL (1.0-4.8) Monocytes # (Auto) 0.9x10^3/uL (0.0-1.1) Eosinophils # (Auto) 0.4x10^3/uL (0.0-0.7) Basophils # (Auto) 0.1x10^3/uL (0.0-0.2) Sodium Level 140mmol/L (136-145) Potassium Level 3.9mmol/L (3.5-5.1) Chloride Level 100mmol/L (98-107) Carbon Dioxide Level 31mmol/L (21-32) Anion Gap 9 (6-14) Blood Urea Nitrogen 35mg/dL (7-20) Creatinine 5.1mg/dL (0.6-1.0) Estimated GFR (Cockcroft-Gault) 9.0 Glucose Level 175mg/dL (70-99) Calcium Level 8.7mg/dL (8.5-10.1) Phosphorus Level 5.0mg/dL (2.6-4.7) Albumin 3.2g/dL (3.4-5.0) Microbiology 08/16/16 Gram Stain - Final, Complete Medications Current Medications Fentanyl Citrate (Fentanyl 2ml Vial) 50 mcg 1X ONCE IV Last administered on 07:01; Start 08/15/16 at 06:30; Stop 08/15/16 at 06:31; Status DC Ondansetron HCl (Zofran) 4 mg 1X ONCE IV Last administered on 08/15/16 06:57 ; Start 08/15/16 at 06:30; Stop 08/15/16 at 06:31; Status DC Ondansetron HCl (Zofran) 4 mg PRN Q8HRS PRN IV NAUSEA/VOMITING Last administered on 08/16/16 03:34; Start 08/15/16 at 08:30; Stop 08/16/16 at 08:29 ; Status DC Fentanyl Citrate (Fentanyl 2ml Vial) 50 mcg PRN Q2HR PRN IV PAIN Last administered on 08/16/16 06:08; Start 08/15/16 at 08:30; Stop 08/16/16 at 08:29 ; Status DC Acetaminophen (Tylenol) 650 mg PRN Q4HRS PRN PO FEVER Last administered on 08/15 13:36; Start 08/15/16 at 08:30; Stop 08/16/16 at 08:29; Status DC Levofloxacin/ Dextrose 1 each 1 each PRN DAILY PRN MC SEE COMMENTS; Start 08/15 at 08:30; Stop 08/15/16 at 14:35; Status DC Clindamycin Phosphate 50 ml @ 100 mls/hr Q8HRS IV ; Start 08/15/16 at 14:00; Stop 08/15/16 at 14:00; Status DC Levofloxacin/ Dextrose 100 ml @ 100 mls/hr Q48H IV Last administered on 08:21; Start 08/15/16 at 09:00; Stop 08/17/16 at 10:56; Status DC Clindamycin Phosphate (Cleocin 900mg Premix) 50 ml @ 100 mls/hr 1X ONCE IV ; Start 08/15/16 at 08:30; Stop 08/15/16 at 08:32; Status DC Vancomycin HCl 1 each 1 each PRN DAILY PRN MC SEE COMMENTS; Start 08/15/16 at 08:30; Stop 08/15/16 at 14:33; Status DC Metronidazole 100 ml @ 100 mls/hr Q12HR IV Last administered on 08/19/16 08: 26; Start 08/15/16 at 09:00; Stop 08/19/16 at 08:59; Status DC Vancomycin HCl/ Sodium Chloride (Iv Sodium Chloride 0.9% 500ml Bag) 500 ml @ 250 mls/hr 1X ONCE IV Last administered on 08/15/16 09:09; Start 08/15/16 at 09:00; Stop 08/15/16 at 10:59; Status DC Aspirin (Anthony Aspirin) 325 mg [id number] PO Last administered on 08/21/16 12: 24; Start 08/16/16 at 08:00 Docusate Sodium (Colace) 100 mg PRN BID PRN PO CONSTIPATION Last administered on 08/19/16 20:19; Start 08/15/16 at 14:30 Furosemide (Lasix) 80 mg [id number] PO Last administered on 08/21/16 12:23; Start 08/15/16 at 16:00 Morphine Sulfate (Ms Contin) 15 mg BID PO Last administered on 08/21/16 12:23 ; Start 08/15/16 at 14:30 Nitroglycerin (Nitrostat) 0.4 mg PRN Q5MIN PRN SL CHEST PAIN; Start 08/15/16 at 14:30 Oxycodone/ Acetaminophen (Percocet 10/325) 1 tab PRN Q6HRS PRN PO MODERATE - SEVERE PAIN Last administered on 08/20/16 17:23; Start 08/15/16 at 14:30 Sevelamer Carbonate (Renvela) 800 mg TIDWMEALS PO ; Start 08/15/16 at 17:00; Stop 08/15/16 at 17:00; Status DC Ticagrelor (Brilinta) 90 mg BID PO ; Start 08/15/16 at 14:30; Stop 08/15/16 at 14:56; Status DC Tramadol HCl (Ultram) 50 mg Q6H PRN PO MILD PAIN; Start 08/15/16 at 14:30 Atorvastatin Calcium (Lipitor) 80 mg QHS PO Last administered on 08/20/16 20: 43; Start 08/15/16 at 21:00 Fenofibrate (Lofibra) 134 mg QHS PO Last administered on 08/20/16 20:44; Start 08/15/16 at 21:00 Niacin 500 mg 500 mg QHS PO Last administered on 08/20/16 20:44; Start at 21:00 Magnesium Sulfate/ Dextrose 50 ml @ 25 mls/hr PRN DAILY PRN IV for Mag < 1.7 on am labs; Start 08/15/16 at 14:30 Vancomycin HCl/ Sodium Chloride (Iv Sodium Chloride 0.9% 500ml Bag) 500 ml @ 250 mls/hr 1X ONCE IV ; Start 08/15/16 at 14:30; Stop 08/15/16 at 16:29; Status UNV Vancomycin HCl 1 each 1 each PRN DAILY PRN MC SEE COMMENTS Last administered on 08/19/16 07:30; Start 08/15/16 at 14:30; Stop 08/19/16 at 08:59; Status DC Levofloxacin/ Dextrose (LEVAQUIN 750mg PREMIX) 150 ml @ 100 mls/hr 1X ONCE IV ; Start 08/15/16 at 14:30; Stop 08/15/16 at 15:59; Status UNV Levofloxacin/ Dextrose (Levaquin Per Pharmacy) 1 each PRN DAILY PRN MC SEE COMMENTS; Start 08/15/16 at 14:30; Status UNV Fluconazole (Diflucan) 100 mg DAILY PO ; Start 08/15/16 at 15:00; Stop 08/15/16 at 15:00; Status DC Insulin Aspart (Novolog) 0-9 UNITS TIDWMEALS SQ Last administered on 08/18/16 12:52; Start 08/15/16 at 17:00 Dextrose (Dextrose 50%-Water Syringe) 12.5 gm PRN Q15MIN PRN IV SEE COMMENTS; Start 08/15/16 at 14:30 Vancomycin HCl 1 each 1X ONCE MC Last administered on 08/16/16 06:00; Start 08/16/16 at 06:00; Stop 08/16/16 at 06:01; Status DC Fluconazole 100 mg 100 mg DAILY16 PO Last administered on 08/19/16 15:14; Start 08/15/16 at 16:00; Stop 08/20/16 at 09:34; Status DC Levofloxacin/ Dextrose (LEVAQUIN 750mg PREMIX) 150 ml @ 100 mls/hr QODAY IV ; Start 08/17/16 at 08:00; Status UNV Ticagrelor (Brilinta) 90 mg BID PO Last administered on 08/21/16 12:24; Start 08/15/16 at 21:00 Carvedilol (Coreg) 12.5 mg BIDWMEALS PO Last administered on 08/21/16 12:24; Start 08/15/16 at 17:00 Carvedilol (Coreg) 12.5 mg DAILY PO ; Start 08/16/16 at 09:00; Stop 08/16/16 at 09:00; Status DC Vitamin B Complex/ Vitamin C (Melly-Shabbir) 1 tab DAILY PO Last administered on 12:24; Start 08/16/16 at 09:00 Non-Formulary Medication 210 mg TIDWMEALS PO ; Start 08/15/16 at 17:00; Stop at 17:00; Status DC Gentamicin Sulfate 1 each 1 each PRN DAILY PRN MC SEE COMMENTS Last administered on 08/19/16 07:29; Start 08/15/16 at 16:00; Stop 08/19/16 at 08:59 ; Status DC Gentamicin Sulfate/Sodium Chloride (Gentamicin Sulfate/Iv Sodium Chloride 0.9% 100ml) 104.5 ml @ 209 mls/hr 1X ONCE IV Last administered on 08/15/16 17:48 ; Start 08/15/16 at 17:00; Stop 08/15/16 at 17:29; Status DC Gentamicin Sulfate 1 each 1X ONCE MC Last administered on 08/16/16 06:00; Start 08/16/16 at 06:00; Stop 08/16/16 at 06:01; Status DC Sevelamer Carbonate 800 mg 800 mg TIDWMEALS PO Last administered on 08/21/16 12:23; Start 08/15/16 at 17:00 Propofol (Diprivan) 20 ml @ As Directed STK-MED ONCE IV ; Start 08/16/16 at 07: 23; Stop 08/16/16 at 07:24; Status DC Lidocaine HCl (Lidocaine HCl 2% Abboject) 100 mg STK-MED ONCE .ROUTE ; Start at 07:23; Stop 08/16/16 at 07:24; Status DC Fentanyl Citrate (Fentanyl 2ml Vial) 100 mcg STK-MED ONCE .ROUTE ; Start at 07:24; Stop 08/16/16 at 07:25; Status DC Rocuronium [place] (Zemuron) 100 mg STK-MED ONCE .ROUTE ; Start 08/16/16 at 08: 03; Stop 08/16/16 at 08:04; Status DC Ondansetron HCl (Zofran) 4 mg STK-MED ONCE .ROUTE ; Start 08/16/16 at 08:18; Stop 08/16/16 at 08:19; Status DC Desflurane (Suprane) 30 ml STK-MED ONCE IH ; Start 08/16/16 at 08:18; Stop 08/16 at 08:19; Status DC Glycopyrrolate (Robinul) 1 mg STK-MED ONCE .ROUTE ; Start 08/16/16 at 08:19; Stop 08/16/16 at 08:20; Status DC Neostigmine Methylsulfate 5 mg STK-MED ONCE .ROUTE ; Start 08/16/16 at 08:19; Stop 08/16/16 at 08:20; Status DC Dexamethasone Sodium Phosphate (Decadron) 20 mg STK-MED ONCE .ROUTE ; Start at 08:39; Stop 08/16/16 at 08:40; Status DC Famotidine (Pepcid) 20 mg STK-MED ONCE .ROUTE ; Start 08/16/16 at 08:39; Stop at 08:40; Status DC Fentanyl Citrate (Fentanyl 2ml Vial) 100 mcg STK-MED ONCE .ROUTE ; Start at 09:16; Stop 08/16/16 at 09:17; Status DC Albuterol Sulfate (Ventolin Neb Soln) 2.5 mg STK-MED ONCE .ROUTE ; Start at 09:17; Stop 08/16/16 at 09:18; Status DC Morphine Sulfate 1 mg 1 mg PRN Q10MIN PRN IV SEVERE PAIN; Start 08/16/16 at 09: 30; Stop 08/16/16 at 14:00; Status DC Lactated Ringer's (Iv Lactated Ringers) 1,000 ml @ 30 mls/hr Q24H IV ; Start at 09:18; Stop 08/16/16 at 21:17; Status DC Lidocaine HCl 2 ml PRN 1X PRN ID PRIOR TO IV START; Start 08/16/16 at 09:30; Stop 08/16/16 at 14:00; Status DC Hydromorphone HCl (Dilaudid) 0.5 mg PRN Q10MIN PRN IV SEV PAIN, Second choice; Start 08/16/16 at 09:30; Stop 08/16/16 at 14:00; Status DC Prochlorperazine Edisylate (Compazine) 5 mg PACU PRN PRN IV NAUSEA, MRX1 Last administered on 08/16/16 11:05; Start 08/16/16 at 09:30; Stop 08/16/16 at 14:00 ; Status DC Albuterol Sulfate (Ventolin Neb Soln) 2.5 mg 1X ONCE NEB Last administered on 08/16/16 09:20; Start 08/16/16 at 09:30; Stop 08/16/16 at 09:31; Status DC Fentanyl Citrate (Fentanyl 2ml Vial) 25 mcg PRN Q5MIN PRN IV Acute Pain Last administered on 08/16/16 11:19; Start 08/16/16 at 09:30; Stop 08/16/16 at 14:00 ; Status DC Info (PHARMACY MONITORING -- do not chart) 1 each PRN DAILY PRN MC SEE COMMENTS ; Start 08/16/16 at 12:30; Stop 08/20/16 at 10:50; Status DC Vancomycin HCl 1 each 1X ONCE MC Last administered on 08/19/16 06:00; Start 08/19/16 at 06:00; Stop 08/19/16 at 06:01; Status DC Gentamicin Sulfate 1 each 1X ONCE MC Last administered on 08/19/16 06:00; Start 08/19/16 at 06:00; Stop 08/19/16 at 06:01; Status DC Insulin Detemir (Levemir) 10 units QHS SQ ; Start 08/16/16 at 21:00; Stop at 10:26; Status DC Heparin Sodium (Porcine) 5,000 unit Q8HRS SQ Last administered on 08/20/16 15: 31; Start 08/16/16 at 14:00 Lidocaine HCl (Xylocaine-Mpf 1% Vial) 2 ml STK-MED ONCE .ROUTE ; Start 08/16/16 at 13:46; Stop 08/16/16 at 13:47; Status DC Ondansetron HCl (Zofran) 4 mg PRN Q6HRS PRN IV NAUSEA/VOMITING Last administered on 08/20/16 23:17; Start 08/16/16 at 14:00 Fentanyl Citrate (Fentanyl 2ml Vial) 50 mcg PRN Q2HR PRN IV PAIN Last administered on 08/19/16 15:15; Start 08/16/16 at 14:00; Stop 08/19/16 at 16:36 ; Status DC Lidocaine HCl 2 ml 2 ml 1X ONCE INJ Last administered on 08/16/16 14:15; Start 08/16/16 at 14:15; Stop 08/16/16 at 14:16; Status DC Sodium Chloride 1,000 ml @ 1,000 mls/hr Q1H PRN IV hypotension; Start 08/16/16 at 14:11; Stop 08/16/16 at 20:10; Status DC Albumin Human (Albuminar) 200 ml @ 200 mls/hr 1X PRN PRN IV Hypotension; Start 08/16/16 at 14:15; Stop 08/16/16 at 20:14; Status DC Acetaminophen (Tylenol) 500 mg 1X PRN PRN PO MILD PAIN / TEMP; Start 08/16/16 at 14:15; Stop 08/17/16 at 14:14; Status DC Diphenhydramine HCl (Benadryl) 25 mg 1X PRN PRN IV ITCHING; Start 08/16/16 at 14:15; Stop 08/16/16 at 20:41; Status DC Diphenhydramine HCl (Benadryl) 25 mg 1X PRN PRN IV ITCHING; Start 08/16/16 at 14:15; Stop 08/16/16 at 20:41; Status DC Labetalol HCl (Normodyne) 10 mg PRN Q1HR PRN IVP SBP > 180; Start 08/16/16 at 14:15; Stop 08/16/16 at 20:42; Status DC Clonidine HCl 0.1 mg 0.1 mg 1X PRN PRN PO SBP > 180; Start 08/16/16 at 14:15; Stop 08/16/16 at 20:40; Status DC Sodium Chloride (Iv Sodium Chloride 0.9% 1000ml Bag) 1,000 ml @ 400 mls/hr Q2H30M PRN IV PATENCY; Start 08/16/16 at 14:11; Stop 08/17/16 at 02:10; Status DC Info (PHARMACY MONITORING -- do not chart) 1 each PRN DAILY PRN MC SEE COMMENTS ; Start 08/16/16 at 14:15; Status Cancel Diphenhydramine HCl (Benadryl) 25 mg PRN Q6HRS PRN IVP ITCHING Last administered on 08/21/16 03:21; Start 08/18/16 at 03:00 Ondansetron HCl (Zofran) 4 mg 1X ONCE IV Last administered on 08/18/16 08:57 ; Start 08/18/16 at 09:00; Stop 08/18/16 at 09:01; Status DC Midazolam HCl (Versed) 2 mg STK-MED ONCE .ROUTE ; Start 08/18/16 at 09:11; Stop 08/18/16 at 09:12; Status DC Fentanyl Citrate (Fentanyl 2ml Vial) 50 mcg PACU PRN PRN IV PAIN Last administered on 08/18/16 09:26; Start 08/18/16 at 08:30; Stop 08/19/16 at 16:36 ; Status DC Midazolam HCl (Versed) 2 mg 1X ONCE IV Last administered on 08/18/16 09:15; Start 08/18/16 at 08:30; Stop 08/18/16 at 09:28; Status DC Insulin Detemir (Levemir) 14 units QHS SQ Last administered on 08/19/16 21:25 ; Start 08/18/16 at 21:00 Hydromorphone HCl (Dilaudid) 2 mg PRN Q2HR PRN IV PAIN Last administered on 12:26; Start 08/18/16 at 12:30 Lidocaine/Sodium Bicarbonate 20 ml 20 ml STK-MED ONCE IJ ; Start 08/18/16 at 15: 51; Stop 08/18/16 at 15:52; Status DC Heparin Sodium/ Sodium Chloride 500 ml @ As Directed STK-MED ONCE .ROUTE ; Start 08/18/16 at 15:51; Stop 08/18/16 at 15:52; Status DC Lidocaine/Sodium Bicarbonate (Buffered Lidocaine 1%) 3 ml 1X ONCE IJ Last administered on 08/18/16 16:42; Start 08/18/16 at 16:30; Stop 08/18/16 at 16:31 ; Status DC Heparin Sodium/ Sodium Chloride 60 unit 1X ONCE IV Last administered on 16:42; Start 08/18/16 at 16:30; Stop 08/18/16 at 16:31; Status DC Midazolam HCl (Versed) 2 mg STK-MED ONCE .ROUTE ; Start 08/18/16 at 16:47; Stop 08/18/16 at 16:48; Status DC Gelatin (Gelfoam Size 12-7mm) 1 each STK-MED ONCE .ROUTE ; Start 08/18/16 at 17 :05; Stop 08/18/16 at 17:06; Status DC Midazolam HCl (Versed) 1 mg 1X ONCE IV Last administered on 08/18/16 17:18; Start 08/18/16 at 17:15; Stop 08/18/16 at 17:16; Status DC Fentanyl Citrate (Fentanyl 2ml Vial) 50 mcg 1X ONCE IV Last administered on 17:19; Start 08/18/16 at 17:15; Stop 08/18/16 at 17:16; Status DC Heparin Sodium (Porcine) (Hep Lock Adult) 500 unit STK-MED ONCE IV ; Start 08/18 at 17:12; Stop 08/18/16 at 17:13; Status DC Heparin Sodium (Porcine) 500 unit 500 unit 1X ONCE IV Last administered on 17:18; Start 08/18/16 at 17:15; Stop 08/18/16 at 17:20; Status DC Promethazine HCl/ Sodium Chloride (Phenergan/Iv Sodium Chloride 0.9% 50ml) 50.5 ml @ 101 mls/hr PRN Q6HRS PRN IV NAUSEA/VOMITING; Start 08/18/16 at 22:45; Status UNV Prochlorperazine Edisylate 10 mg 10 mg PRN Q8HRS PRN IV NAUSEA/VOMITING Last administered on 08/21/16 05:30; Start 08/18/16 at 22:45 Vancomycin HCl 500 mg/Sodium Chloride 100 ml @ 100 mls/hr QTUTHSA IV ; Start at 16:00; Stop 08/19/16 at 16:00; Status DC Gentamicin Sulfate 140 mg/ Sodium Chloride 103.5 ml @ 207 mls/hr 1X ONCE IV ; Start 08/19/16 at 16:00; Stop 08/19/16 at 16:00; Status DC Cefazolin Sodium 1 gm/Sodium Chloride 50 ml @ 100 mls/hr DAILY IV Last administered on 08/21/16 12:25; Start 08/19/16 at 10:00 Sodium Chloride (Iv Sodium Chloride 0.9% 1000ml Bag) 1,000 ml @ 1,000 mls/hr Q1H PRN IV hypotension; Start 08/19/16 at 11:28; Stop 08/19/16 at 17:27; Status DC Info (PHARMACY MONITORING -- do not chart) 1 each PRN DAILY PRN MC SEE COMMENTS ; Start 08/19/16 at 11:30 Info (PHARMACY MONITORING -- do not chart) 1 each PRN DAILY PRN MC SEE COMMENTS ; Start 08/19/16 at 11:30; Status UNV Darbepoetin Mauricio 60 mcg 60 mcg We SQ Last administered on 08/20/16 20:50; Start 08/20/16 at 21:00 Sodium Chloride (Iv Sodium Chloride 0.9% 1000ml Bag) 1,000 ml @ 1,000 mls/hr Q1H PRN IV hypotension; Start 08/21/16 at 07:57; Stop 08/21/16 at 13:56; Status DC Info (PHARMACY MONITORING -- do not chart) 1 each PRN DAILY PRN MC SEE COMMENTS ; Start 08/21/16 at 08:00; Status UNV Info (PHARMACY MONITORING -- do not chart) 1 each PRN DAILY PRN MC SEE COMMENTS ; Start 08/21/16 at 08:00; Status UNV Active Scripts Active Percocet 10-325 Mg Tablet (Oxycodone/Acetaminophen) 1 Each Tablet 1 Tab PO Q4HRS Fluconazole 100 Mg Tablet 100 Mg PO DAILY16 Renvela (Sevelamer Carbonate) 800 Mg Tablet 800 Mg PO TIDWMEALS Lantus (Insulin Glargine,Hum.rec.anlog) 100 Unit/1 Ml Vial 14 Unit SQ HS PRN only if blood sugar >150 at bedtime. Morphine Sulfate Er (Morphine Sulfate) 15 Mg Tablet.er 15 Mg PO BID Reported [auryxia] 210 Mg PO TIDWMEALS Carvedilol 12.5 Mg Tablet 1 Tab PO DAILY Carvedilol 12.5 Mg Tablet 1 Tab PO BID Nephro-Shabbir Tablet (Folic Acid/Vitamin B Comp W-C) 0.8 Mg Tablet 1 Tab PO DAILY Fluconazole 100 Mg Tablet 150 Mg PO PRN PRN Tramadol Hcl 50 Mg Tablet 50 Mg PO Q6H PRN Brilinta (Ticagrelor) 90 Mg Tablet 90 Mg PO DAILY Tricor (Fenofibrate Nanocrystallized) 145 Mg Tablet 1 Tab PO HS Lipitor (Atorvastatin Calcium) 80 Mg Tablet 80 Mg PO HS Niacin 500 Mg Tablet 500 Mg PO HS Novolog (Insulin Aspart) 100 Unit/1 Ml Cartridge 0 SQ TIDAC sliding scale Aspirin 325 Mg Tablet 325 Mg PO DAILY Furosemide 80 Mg Tablet 80 Mg PO BID Docusate Sodium 100 Mg Capsule 1 Cap PO PRN PRN Nitrostat (Nitroglycerin) 0.4 Mg Tab.subl 0.4 Mg SL PRN Q5MIN PRN Take as needed for chest pain Vitals/I & O Vital Sign - Last 24 Hours 08/20/16 08/20/16 08/20/16 08/20/16 15:22 17:21 17:23 18:36 Pulse 80 B/P 127/47 O2 Delivery Room Air Room Air Room Air 08/20/16 08/20/16 08/20/16 08/20/16 19:00 19:29 20:10 20:43 Temp 97.9 97.9 Pulse 77 Resp 18 B/P 152/73 Pulse Ox 98 O2 Delivery Room Air Room Air Room Air Room Air 08/20/16 08/20/16 08/21/16 08/21/16 23:00 23:14 03:00 03:22 Temp 98.2 98.4 98.2 98.4 Pulse 77 92 Resp 18 18 B/P 148/76 161/82 Pulse Ox 100 98 O2 Delivery Room Air Room Air Room Air Room Air 08/21/16 08/21/16 08/21/16 08/21/16 05:30 08:10 09:23 10:00 Resp 16 16 O2 Delivery Room Air Room Air Room Air Room Air 08/21/16 08/21/16 08/21/16 12:23 12:24 12:26 Pulse 92 Resp 18 18 B/P 161/82 O2 Delivery Room Air Room Air Intake and Output 08/20/16 08/20/16 08/21/16 15:00 23:00 07:00 Intake Total 0 ml Output Total 0 ml Balance 0 ml 0 ml ROMI GOSS MD Aug 21, 2016 15:02
--- NOTE | 2016-08-21 15:05 | PDOC3 ---
Discharge Summary Visit Information Date of Admission: Aug 15, 2016 Date of Discharge: Aug 21, 2016 Admitting Diagnosis: right foot osteo Final Diagnosis 1. R foot cellulitis/osteomyelitis: s/p I&D, on wound vac 08/16. on gent, vanco, diflucan, flagyl. wound cultures growing MSSA. Abx as per ID service. Dr Jolley following 2. DM2: borderline control. increase levemir 10->14, cont ISS 3. PAD: hx L BKA. R LE cold, chronically 4. CAD: hx CABG, and multiple stents. cont secondary prevention meds. 5. HTN: well controlled on current regimen 6. ESRD: on HD TTHSa 7. Prophylaxis: PPI, heparin Problems Medical Problems: (1) Diabetic foot ulcer with osteomyelitis Status: Acute (2) End-stage renal disease on hemodialysis Status: Acute Brief Hospital Course Allergies Allergies Coded Allergies Type Severity Reaction Last Updated Verified Sulfa (Sulfonamide Antibiotics) Allergy Intermediate 08/16/16 Yes meropenem Allergy Intermediate 08/16/16 Yes piperacillin Allergy Intermediate Rash 08/16/16 Yes strawberry Allergy Intermediate 08/16/16 Yes tazobactam Allergy Intermediate 08/16/16 Yes Vital Signs Vital Signs Date Time Temp Pulse Resp B/P Pulse Ox O2 Delivery O2 Flow Rate FiO2 08/21/16 12:26 18 Room Air 08/21/16 12:24 92 161/82 08/21/16 03:00 98.4 98 98.4 Lab Results Laboratory Tests Test 08/19/16 15:59 08/19/16 20:53 08/20/16 03:30 08/20/16 07:42 Glucose (Fingerstick) 135mg/dL (70-99) 153mg/dL (70-99) 114mg/dL (70-99) White Blood Count 7.1x10^3/uL (4.0-11.0) Red Blood Count 3.24x10^6/uL (3.50-5.40) Hemoglobin 10.2g/dL (12.0-15.5) Hematocrit 30.9% (36.0-47.0) Mean Corpuscular Volume 95fL (79-100) Mean Corpuscular Hemoglobin 32pg (25-35) Mean Corpuscular Hemoglobin Concent 33g/dL (31-37) Red Cell Distribution Width 14.2% (11.5-14.5) Platelet Count 306x10^3/uL (140-400) Neutrophils (%) (Auto) 61% (31-73) Lymphocytes (%) (Auto) 23% (24-48) Monocytes (%) (Auto) 12% (0-9) Eosinophils (%) (Auto) 3% (0-3) Basophils (%) (Auto) 1% (0-3) Neutrophils # (Auto) 4.3x10^3uL (1.8-7.7) Lymphocytes # (Auto) 1.7x10^3/uL (1.0-4.8) Monocytes # (Auto) 0.8x10^3/uL (0.0-1.1) Eosinophils # (Auto) 0.2x10^3/uL (0.0-0.7) Basophils # (Auto) 0.1x10^3/uL (0.0-0.2) Sodium Level 139mmol/L (136-145) Potassium Level 3.9mmol/L (3.5-5.1) Chloride Level 101mmol/L (98-107) Carbon Dioxide Level 30mmol/L (21-32) Anion Gap 8 (6-14) Blood Urea Nitrogen 26mg/dL (7-20) Creatinine 3.8mg/dL (0.6-1.0) Estimated GFR (Cockcroft-Gault) 12.6 Glucose Level 117mg/dL (70-99) Calcium Level 8.7mg/dL (8.5-10.1) Phosphorus Level 4.3mg/dL (2.6-4.7) Magnesium Level 1.9mg/dL (1.8-2.4) Albumin 3.2g/dL (3.4-5.0) Test 08/20/16 10:28 08/20/16 17:30 08/20/16 20:45 08/21/16 05:20 Glucose (Fingerstick) 102mg/dL (70-99) 159mg/dL (70-99) 145mg/dL (70-99) White Blood Count 8.9x10^3/uL (4.0-11.0) Red Blood Count 3.36x10^6/uL (3.50-5.40) Hemoglobin 10.8g/dL (12.0-15.5) Hematocrit 31.4% (36.0-47.0) Mean Corpuscular Volume 94fL (79-100) Mean Corpuscular Hemoglobin 32pg (25-35) Mean Corpuscular Hemoglobin Concent 35g/dL (31-37) Red Cell Distribution Width 13.5% (11.5-14.5) Platelet Count 307x10^3/uL (140-400) Neutrophils (%) (Auto) 69% (31-73) Lymphocytes (%) (Auto) 15% (24-48) Monocytes (%) (Auto) 10% (0-9) Eosinophils (%) (Auto) 4% (0-3) Basophils (%) (Auto) 1% (0-3) Neutrophils # (Auto) 6.2x10^3uL (1.8-7.7) Lymphocytes # (Auto) 1.3x10^3/uL (1.0-4.8) Monocytes # (Auto) 0.9x10^3/uL (0.0-1.1) Eosinophils # (Auto) 0.4x10^3/uL (0.0-0.7) Basophils # (Auto) 0.1x10^3/uL (0.0-0.2) Sodium Level 140mmol/L (136-145) Potassium Level 3.9mmol/L (3.5-5.1) Chloride Level 100mmol/L (98-107) Carbon Dioxide Level 31mmol/L (21-32) Anion Gap 9 (6-14) Blood Urea Nitrogen 35mg/dL (7-20) Creatinine 5.1mg/dL (0.6-1.0) Estimated GFR (Cockcroft-Gault) 9.0 Glucose Level 175mg/dL (70-99) Calcium Level 8.7mg/dL (8.5-10.1) Phosphorus Level 5.0mg/dL (2.6-4.7) Albumin 3.2g/dL (3.4-5.0) Laboratory Tests Test 08/20/16 17:30 08/20/16 20:45 08/21/16 05:20 Glucose (Fingerstick) 159mg/dL (70-99) 145mg/dL (70-99) White Blood Count 8.9x10^3/uL (4.0-11.0) Red Blood Count 3.36x10^6/uL (3.50-5.40) Hemoglobin 10.8g/dL (12.0-15.5) Hematocrit 31.4% (36.0-47.0) Mean Corpuscular Volume 94fL (79-100) Mean Corpuscular Hemoglobin 32pg (25-35) Mean Corpuscular Hemoglobin Concent 35g/dL (31-37) Red Cell Distribution Width 13.5% (11.5-14.5) Platelet Count 307x10^3/uL (140-400) Neutrophils (%) (Auto) 69% (31-73) Lymphocytes (%) (Auto) 15% (24-48) Monocytes (%) (Auto) 10% (0-9) Eosinophils (%) (Auto) 4% (0-3) Basophils (%) (Auto) 1% (0-3) Neutrophils # (Auto) 6.2x10^3uL (1.8-7.7) Lymphocytes # (Auto) 1.3x10^3/uL (1.0-4.8) Monocytes # (Auto) 0.9x10^3/uL (0.0-1.1) Eosinophils # (Auto) 0.4x10^3/uL (0.0-0.7) Basophils # (Auto) 0.1x10^3/uL (0.0-0.2) Sodium Level 140mmol/L (136-145) Potassium Level 3.9mmol/L (3.5-5.1) Chloride Level 100mmol/L (98-107) Carbon Dioxide Level 31mmol/L (21-32) Anion Gap 9 (6-14) Blood Urea Nitrogen 35mg/dL (7-20) Creatinine 5.1mg/dL (0.6-1.0) Estimated GFR (Cockcroft-Gault) 9.0 Glucose Level 175mg/dL (70-99) Calcium Level 8.7mg/dL (8.5-10.1) Phosphorus Level 5.0mg/dL (2.6-4.7) Albumin 3.2g/dL (3.4-5.0) Brief Hospital Course Ms. Rosenbaum is a 50 old diabetic on hemodialysis,w/ prior left below-knee amputation admit for worsening pain, redness, and swelling with drainage right great toe. Taken to the OR on 08/15, Dr. Jolley, good margins, extensive sized wound vac. good granulation at edges, IV abx ID consult, cont 4 additional weeks IV abx Dc with wound vac Discharge Information Condition at Discharge: Improved Follow Up: Weeks Disposition/Orders: D/C to Home w/ HH Scheduled ([auryxia]) 210 MG PO TIDWMEALS (Reported) Aspirin (Aspirin) 325 MG PO DAILY (Reported) Atorvastatin Calcium (Lipitor) 80 MG PO HS (Reported) Carvedilol (Carvedilol) 1 TAB PO BID (Reported) Carvedilol (Carvedilol) 1 TAB PO DAILY (Reported) Fenofibrate Nanocrystallized (Tricor) 1 TAB PO HS (Reported) Fluconazole (Fluconazole) 100 MG PO DAILY16 Folic Acid/Vitamin B Comp W-C (Nephro-Shabbir Tablet) 1 TAB PO DAILY (Reported) Furosemide (Furosemide) 80 MG PO BID (Reported) Insulin Aspart (Novolog) 0 SQ TIDAC (Reported) Morphine Sulfate (Morphine Sulfate Er) 15 MG PO BID Niacin (Niacin) 500 MG PO HS (Reported) Oxycodone/Apap 10-325 (Percocet 10-325 Mg Tablet) 1 TAB PO Q4HRS Sevelamer Carbonate (Renvela) 800 MG PO TIDWMEALS Ticagrelor (Brilinta) 90 MG PO DAILY (Reported) Scheduled PRN Docusate Sodium (Docusate Sodium) 1 CAP PO PRN PRN PRN CONSTIPATION (Reported) Fluconazole (Fluconazole) 150 MG PO PRN PRN PRN URINARY PAIN (Reported) Insulin Glargine,Hum.rec.anlog (Lantus) 14 UNIT SQ HS PRN PRN if glucose over 150 Nitroglycerin (Nitrostat) 0.4 MG SL PRN Q5MIN PRN PRN CHEST PAIN (Reported) Tramadol Hcl (Tramadol Hcl) 50 MG PO Q6H PRN PRN PAIN (Reported) Discontinued Medications Ciprofloxacin Hcl (Ciprofloxacin Hcl) 250 MG PO PRN BID PRN PRN URINARY PAIN ( Reported) Patient Instructions Patient Instructions dc with wound vac HD T,R, Sa time > 30 min ROMI GOSS MD Aug 21, 2016 15:05
== END 2016-08-21 15:46 | disposition home health service (06) | DRG 853 ==
LOC: ER 05:40 → 4 NORTH 08:00
PROVIDERS: ADMIT Internal Medicine; ATTEND Internal Medicine
PROC: 0QBQ0ZX Excision of Right Toe Phalanx, Open Approach, Diagnostic (ICD-10-PCS; 2016-08-16)
PROC: 0QBQ0ZZ Excision of Right Toe Phalanx, Open Approach (ICD-10-PCS; principal; 2016-08-16 08:00)
PROC: 02H633Z Insertion of Infusion Device into Right Atrium, Percutaneous Approach (ICD-10-PCS; 2016-08-18)
PROC: B2141ZZ Fluoroscopy of Right Heart using Low Osmolar Contrast (ICD-10-PCS; 2016-08-18)
PROC: 5A1D60Z (ICD-10-PCS; 2016-08-19)
DX: A41.9 Sepsis, unspecified organism (principal); N18.6 End stage renal disease; M86.9 Osteomyelitis, unspecified; L03.115 Cellulitis of right lower limb; M00.9 Pyogenic arthritis, unspecified; I13.2 Hypertensive heart and chronic kidney disease with heart failure and with stage 5 chronic kidney disease, or end stage renal disease; E10.69 Type 1 diabetes mellitus with other specified complication; D63.1 Anemia in chronic kidney disease; E10.22 Type 1 diabetes mellitus with diabetic chronic kidney disease; E10.43 Type 1 diabetes mellitus with diabetic autonomic (poly)neuropathy; E10.621 Type 1 diabetes mellitus with foot ulcer; E10.65 Type 1 diabetes mellitus with hyperglycemia; E78.5 Hyperlipidemia, unspecified; I25.10 Atherosclerotic heart disease of native coronary artery without angina pectoris; I50.9 Heart failure, unspecified; J44.9 Chronic obstructive pulmonary disease, unspecified; J45.909 Unspecified asthma, uncomplicated; K21.9 Gastro-esophageal reflux disease without esophagitis; K31.84 Gastroparesis; L97.509 Non-pressure chronic ulcer of other part of unspecified foot with unspecified severity; M19.90 Unspecified osteoarthritis, unspecified site; M79.7 Fibromyalgia; Z79.4 Long term (current) use of insulin; Z82.49 Family history of ischemic heart disease and other diseases of the circulatory system; Z83.3 Family history of diabetes mellitus; Z87.11 Personal history of peptic ulcer disease; Z88.1 Allergy status to other antibiotic agents; Z88.2 Allergy status to sulfonamides; Z89.429 Acquired absence of other toe(s), unspecified side; Z89.512 Acquired absence of left leg below knee; Z95.1 Presence of aortocoronary bypass graft; Z95.5 Presence of coronary angioplasty implant and graft; Z99.2 Dependence on renal dialysis; Z99.3 Dependence on wheelchair; Z88.0 Allergy status to penicillin; Z88.8 Allergy status to other drugs, medicaments and biological substances; Z90.710 Acquired absence of both cervix and uterus
CPT/HCPCS: 36415; 36558; 73630; 73718; 76937; 77001; 80048; 80069; 80170; 80202; 82947; 83036; 83735; 85007; 85027; 85651; 86140; 87071; 87075; 87186; 87205; 93005; 96365; 96375; C1751; C1892; J0690; J0780; J0881; J1100; J1170; J1200; J1580; J1815; J1956; J2250; J2405; J2704; J2710; J3010; J3370; J3490; J7040; S0028; 97605; 99285-25

== ENCOUNTER → 2016-08-29 | Outpatient (CLI) | payer MEDICARE ==
[2016-08-21 12:24] VITALS: BP 161/82
[~2016-08-29] MED LIST changes: +FOLI0.8T3 PO; +auryxia PO
== END | disposition home or self-care (01) ==
LOC: PMGWOUND 09:06
PROVIDERS: ATTEND Preventive Medicine Undersea and Hyperbaric Medicine
DX: T81.89XD Other complications of procedures, not elsewhere classified, subsequent encounter (principal); E11.621 Type 2 diabetes mellitus with foot ulcer; L97.411 Non-pressure chronic ulcer of right heel and midfoot limited to breakdown of skin; E78.5 Hyperlipidemia, unspecified; J44.9 Chronic obstructive pulmonary disease, unspecified; I11.0 Hypertensive heart disease with heart failure; I50.9 Heart failure, unspecified; I25.2 Old myocardial infarction; F17.210 Nicotine dependence, cigarettes, uncomplicated; Z72.89 Other problems related to lifestyle; Z89.512 Acquired absence of left leg below knee; Z95.1 Presence of aortocoronary bypass graft; Y83.8 Other surgical procedures as the cause of abnormal reaction of the patient, or of later complication, without mention of misadventure at the time of the procedure
CPT/HCPCS: 99215

== ENCOUNTER → 2016-09-05 | Outpatient (CLI) | payer MEDICARE ==
[2016-08-21 12:24] VITALS: BP 161/82
== END | disposition home or self-care (01) ==
LOC: PMGWOUND 10:20
PROVIDERS: ATTEND Preventive Medicine Undersea and Hyperbaric Medicine
DX: T81.89XD Other complications of procedures, not elsewhere classified, subsequent encounter (principal); S80.821D Blister (nonthermal), right lower leg, subsequent encounter; E11.621 Type 2 diabetes mellitus with foot ulcer; L97.522 Non-pressure chronic ulcer of other part of left foot with fat layer exposed; I87.2 Venous insufficiency (chronic) (peripheral); E78.5 Hyperlipidemia, unspecified; J44.9 Chronic obstructive pulmonary disease, unspecified; I25.2 Old myocardial infarction; M19.90 Unspecified osteoarthritis, unspecified site; J45.909 Unspecified asthma, uncomplicated; E11.43 Type 2 diabetes mellitus with diabetic autonomic (poly)neuropathy; E11.22 Type 2 diabetes mellitus with diabetic chronic kidney disease; I13.2 Hypertensive heart and chronic kidney disease with heart failure and with stage 5 chronic kidney disease, or end stage renal disease; N18.6 End stage renal disease; I50.9 Heart failure, unspecified; F17.210 Nicotine dependence, cigarettes, uncomplicated; Z99.2 Dependence on renal dialysis; Z79.4 Long term (current) use of insulin; Z89.512 Acquired absence of left leg below knee; Z95.1 Presence of aortocoronary bypass graft; Z90.710 Acquired absence of both cervix and uterus; Z72.89 Other problems related to lifestyle; X58.XXXD Exposure to other specified factors, subsequent encounter; Y83.8 Other surgical procedures as the cause of abnormal reaction of the patient, or of later complication, without mention of misadventure at the time of the procedure
CPT/HCPCS: 97597

== ENCOUNTER → 2016-09-12 | Outpatient (CLI) | payer MEDICARE ==
[2016-08-21 12:24] VITALS: BP 161/82
== END | disposition home or self-care (01) ==
LOC: PMGWOUND 11:13
PROVIDERS: ATTEND Preventive Medicine Undersea and Hyperbaric Medicine
DX: T81.89XD Other complications of procedures, not elsewhere classified, subsequent encounter (principal); E11.621 Type 2 diabetes mellitus with foot ulcer; L97.512 Non-pressure chronic ulcer of other part of right foot with fat layer exposed; I87.2 Venous insufficiency (chronic) (peripheral); J44.9 Chronic obstructive pulmonary disease, unspecified; E78.5 Hyperlipidemia, unspecified; I25.2 Old myocardial infarction; M19.90 Unspecified osteoarthritis, unspecified site; K21.9 Gastro-esophageal reflux disease without esophagitis; E11.43 Type 2 diabetes mellitus with diabetic autonomic (poly)neuropathy; E11.69 Type 2 diabetes mellitus with other specified complication; M86.9 Osteomyelitis, unspecified; I13.2 Hypertensive heart and chronic kidney disease with heart failure and with stage 5 chronic kidney disease, or end stage renal disease; E11.22 Type 2 diabetes mellitus with diabetic chronic kidney disease; N18.6 End stage renal disease; I50.9 Heart failure, unspecified; F17.210 Nicotine dependence, cigarettes, uncomplicated; Z99.2 Dependence on renal dialysis; Z95.1 Presence of aortocoronary bypass graft; Z72.89 Other problems related to lifestyle; Z79.4 Long term (current) use of insulin; Z89.512 Acquired absence of left leg below knee; Z90.710 Acquired absence of both cervix and uterus; Y83.8 Other surgical procedures as the cause of abnormal reaction of the patient, or of later complication, without mention of misadventure at the time of the procedure
CPT/HCPCS: 97597

== ENCOUNTER → 2016-09-19 | Outpatient (CLI) | payer MEDICARE ==
[2016-08-21 12:24] VITALS: BP 161/82
== END | disposition home or self-care (01) ==
LOC: PMGWOUND 10:19
PROVIDERS: ATTEND Preventive Medicine Undersea and Hyperbaric Medicine
DX: T81.89XD Other complications of procedures, not elsewhere classified, subsequent encounter (principal); E11.621 Type 2 diabetes mellitus with foot ulcer; L97.522 Non-pressure chronic ulcer of other part of left foot with fat layer exposed; J44.9 Chronic obstructive pulmonary disease, unspecified; K21.9 Gastro-esophageal reflux disease without esophagitis; E78.5 Hyperlipidemia, unspecified; I25.2 Old myocardial infarction; M19.90 Unspecified osteoarthritis, unspecified site; E11.43 Type 2 diabetes mellitus with diabetic autonomic (poly)neuropathy; E11.22 Type 2 diabetes mellitus with diabetic chronic kidney disease; I13.2 Hypertensive heart and chronic kidney disease with heart failure and with stage 5 chronic kidney disease, or end stage renal disease; N18.6 End stage renal disease; I50.9 Heart failure, unspecified; F17.210 Nicotine dependence, cigarettes, uncomplicated; Z99.2 Dependence on renal dialysis; Z79.4 Long term (current) use of insulin; Z95.1 Presence of aortocoronary bypass graft; Z72.89 Other problems related to lifestyle; Z89.512 Acquired absence of left leg below knee; Y83.8 Other surgical procedures as the cause of abnormal reaction of the patient, or of later complication, without mention of misadventure at the time of the procedure
CPT/HCPCS: 99214

== ENCOUNTER → 2016-09-26 | Outpatient (CLI) | payer MEDICARE | END | disposition home or self-care (01) | LOC: PMGWOUND 10:16 | PROVIDERS: ATTEND Preventive Medicine Undersea and Hyperbaric Medicine | DX: T81.89XD Other complications of procedures, not elsewhere classified, subsequent encounter (principal); E11.621 Type 2 diabetes mellitus with foot ulcer; I87.2 Venous insufficiency (chronic) (peripheral); L97.511 Non-pressure chronic ulcer of other part of right foot limited to breakdown of skin; L97.522 Non-pressure chronic ulcer of other part of left foot with fat layer exposed; J44.9 Chronic obstructive pulmonary disease, unspecified; K21.9 Gastro-esophageal reflux disease without esophagitis; E11.22 Type 2 diabetes mellitus with diabetic chronic kidney disease; I13.2 Hypertensive heart and chronic kidney disease with heart failure and with stage 5 chronic kidney disease, or end stage renal disease; N18.6 End stage renal disease; I50.9 Heart failure, unspecified; E78.5 Hyperlipidemia, unspecified; I25.2 Old myocardial infarction; E11.43 Type 2 diabetes mellitus with diabetic autonomic (poly)neuropathy; M19.90 Unspecified osteoarthritis, unspecified site; J45.909 Unspecified asthma, uncomplicated; E11.69 Type 2 diabetes mellitus with other specified complication; M86.9 Osteomyelitis, unspecified; Z95.1 Presence of aortocoronary bypass graft; Z90.710 Acquired absence of both cervix and uterus; Z72.89 Other problems related to lifestyle; Z79.4 Long term (current) use of insulin; F17.210 Nicotine dependence, cigarettes, uncomplicated; Z99.2 Dependence on renal dialysis; Z89.512 Acquired absence of left leg below knee; Y83.8 Other surgical procedures as the cause of abnormal reaction of the patient, or of later complication, without mention of misadventure at the time of the procedure | CPT/HCPCS: 97597 ==

== ENCOUNTER → 2016-10-03 | Outpatient (CLI) | payer MEDICARE ==
[~2016-10-03] MED LIST changes: -ASPI325T4 PO; +ASPI325T8 PO; +DOCU100C28 PO; -DOCU100C5 PO; -OXYC-250 PO; +OXYC-328 PO
== END | disposition home or self-care (01) ==
LOC: PMGWOUND 09:02
PROVIDERS: ATTEND Preventive Medicine Undersea and Hyperbaric Medicine
DX: T81.89XD Other complications of procedures, not elsewhere classified, subsequent encounter (principal); I87.2 Venous insufficiency (chronic) (peripheral); E11.621 Type 2 diabetes mellitus with foot ulcer; L97.511 Non-pressure chronic ulcer of other part of right foot limited to breakdown of skin; J44.9 Chronic obstructive pulmonary disease, unspecified; K21.9 Gastro-esophageal reflux disease without esophagitis; E78.5 Hyperlipidemia, unspecified; E11.22 Type 2 diabetes mellitus with diabetic chronic kidney disease; I13.2 Hypertensive heart and chronic kidney disease with heart failure and with stage 5 chronic kidney disease, or end stage renal disease; N18.6 End stage renal disease; I50.9 Heart failure, unspecified; I25.2 Old myocardial infarction; E11.43 Type 2 diabetes mellitus with diabetic autonomic (poly)neuropathy; M19.90 Unspecified osteoarthritis, unspecified site; E11.69 Type 2 diabetes mellitus with other specified complication; M86.9 Osteomyelitis, unspecified; F17.210 Nicotine dependence, cigarettes, uncomplicated; Z95.1 Presence of aortocoronary bypass graft; Z79.4 Long term (current) use of insulin; Z90.710 Acquired absence of both cervix and uterus; Z89.512 Acquired absence of left leg below knee; Z99.2 Dependence on renal dialysis; Z72.89 Other problems related to lifestyle; Y83.8 Other surgical procedures as the cause of abnormal reaction of the patient, or of later complication, without mention of misadventure at the time of the procedure
CPT/HCPCS: 97597

== ENCOUNTER 2016-10-08 17:46 | Inpatient (IN) | payer MEDICARE ==
[~2016-10-08] VITALS: Ht 172.7 cm; Wt 92.8 kg
[2016-10-08 19:45] VITALS: BP 142/65
[2016-10-08] MEDS ORDERED: INSU100I13 SQ (20:03)
[2016-10-08] MEDS ORDERED: ONDA4TAB7 PO (20:04)
[2016-10-08] MEDS ORDERED: MORPHINE SULFATE 2 MG/ML DISP.SYRIN. IV PRN (20:15)
[2016-10-08] MEDS ORDERED: ACETAMINOPHEN 325 MG TABLET. PO PRN (20:15)
[2016-10-08] MEDS ORDERED: traMADol 50 MG TABLET PO PRN (21:30)
[2016-10-08] MEDS ORDERED: diphenhydrAMINE HCL 25 MG CAPSULE PO SCH (21:30)
[2016-10-08] MEDS ORDERED: DOCUSATE SODIUM 100 MG CAPSULE. PO PRN (21:30)
[2016-10-08] MEDS ORDERED: NITROGLYCERIN SUBLINGUAL 0.4 MG BOTTLE OF 25. SL PRN (21:30)
--- NOTE | 2016-10-08 21:37 | PDOC1 ---
History and Physical Date of Admission Date of Admission DATE: 10/08/16 TIME: 21:27 Identification/Chief Complaint Chief Complaint R toe pain Problems: Source Source: Caregiver, Chart review, Patient History of Present Illness History of Present Illness 51 y.o female, vasculopath, hx CABG distant past, ESRD on HD TTHS, Left amputee from OM, has been battling R toe infection, possibly OM for many weeks now, maybe months,. HAs been going to [facility] [place], Wound/toe looks bad, concerns for osteomyelitis, hence admitted for IV antibiotics, HAs a left sided central line, some concerns if still working, Denies fever, allergic to zosyn and meropnemen, ALso since Thursday (past 3 days), rash on nape, left ear lobe is red, warm and swollen, Was recently shifted to a second gen PCN - allergic reaction? CAse was signed out to me by Dr. Radha, Ortho (Dr Reeder) has seen her before for the other foot, will hold off on ortho for now, as dw ID Complains of left foot pain, allergy to morphine Claims fentanyl worked in the past Past Medical History Cardiovascular: CAD, CHF, HTN, MS, Hyperlipidemia Pulmonary: Asthma, COPD, Pneumonia CENTRAL NERVOUS SYSTEM: Other GI: GERD Heme/Onc: Anemia NOS Hepatobiliary: No pertinent hx Psych: No pertinent hx Rheumatologic: Fibromyalgia Infectious disease: Other Renal/: Chronic renal failure Endocrine: Diabetes Past Surgical History Past Surgical History: CABG, Hysterectomy, Other Family History Family History: Diabetes, Hypertension Social History Smoke: No ALCOHOL: none Drugs: None Current Medications Current Medications Current Medications Vancomycin HCl (Vanco Per Pharmacy) 1 each PRN DAILY PRN MC SEE COMMENTS; Start 10/08/16 at 20:15; Status UNV Gentamicin Sulfate 1 each PRN DAILY PRN MC SEE COMMENTS; Start 10/08/16 at 20: 15; Status UNV Levofloxacin/ Dextrose 100 ml @ 100 mls/hr Q24H IV ; Start 10/08/16 at 21:00 Metronidazole 100 ml @ 100 mls/hr Q12HR IV ; Start 10/08/16 at 21:00 Ondansetron HCl (Zofran) 4 mg PRN Q6HRS PRN IV NAUSEA/VOMITING; Start 10/08/16 at 20:15 Acetaminophen (Tylenol) 650 mg PRN Q6HRS PRN PO FEVER; Start 10/08/16 at 20:15 Morphine Sulfate 2 mg PRN Q2HR PRN IV PAIN; Start 10/08/16 at 20:15; Stop 10/08 at 21:26; Status DC Acetaminophen/ Hydrocodone Bitart (Lortab 5/325) 1 tab PRN Q4HRS PRN PO PAIN; Start 10/08/16 at 20:15 Fentanyl Citrate (Fentanyl 2ml Vial) 50 mcg PRN Q2HR PRN IV PAIN; Start at 21:30; Status UNV Aspirin (Anthony Aspirin) 325 mg DAILY PO ; Start 10/09/16 at 09:00; Status UNV Carvedilol (Coreg) 12.5 mg BID PO ; Start 10/09/16 at 09:00; Status UNV Docusate Sodium (Colace) 100 mg BID PRN PO CONSTIPATION; Start 10/08/16 at 21: 30; Status UNV Active Scripts Active Percocet 10-325 Mg Tablet (Oxycodone/Acetaminophen) 1 Each Tablet 1 Tab PO Q4HRS Fluconazole 100 Mg Tablet 100 Mg PO DAILY16 Renvela (Sevelamer Carbonate) 800 Mg Tablet 800 Mg PO TIDWMEALS Morphine Sulfate Er (Morphine Sulfate) 15 Mg Tablet.er 15 Mg PO BID Reported Zofran (Ondansetron Hcl) 4 Mg Tablet 4 Mg PO Q6-8HRS PRN Lantus Solostar (Insulin Glargine,Hum.rec.anlog) 100 Unit/1 Ml Insuln.pen 10 Unit SQ QHS [auryxia] 210 Mg PO TIDWMEALS Carvedilol 12.5 Mg Tablet 1 Tab PO DAILY Carvedilol 12.5 Mg Tablet 1 Tab PO BID Nephro-Shabbir Tablet (Folic Acid/Vitamin B Comp W-C) 0.8 Mg Tablet 1 Tab PO DAILY Fluconazole 100 Mg Tablet 150 Mg PO PRN PRN Tramadol Hcl 50 Mg Tablet 50 Mg PO Q6H PRN Tricor (Fenofibrate Nanocrystallized) 145 Mg Tablet 1 Tab PO HS Lipitor (Atorvastatin Calcium) 80 Mg Tablet 80 Mg PO HS Niacin 500 Mg Tablet 500 Mg PO HS Novolog (Insulin Aspart) 100 Unit/1 Ml Cartridge 0 SQ TIDAC sliding scale Aspirin 325 Mg Tablet 325 Mg PO DAILY Furosemide 80 Mg Tablet 80 Mg PO BID Docusate Sodium 100 Mg Capsule 1 Cap PO PRN PRN Nitrostat (Nitroglycerin) 0.4 Mg Tab.subl 0.4 Mg SL PRN Q5MIN PRN Take as needed for chest pain Allergies Allergies: Coded Allergies: Sulfa (Sulfonamide Antibiotics) (Verified Allergy, Intermediate, 08/16/16) meropenem (Verified Allergy, Intermediate, 08/16/16) Tolerates ancef piperacillin (Verified Allergy, Intermediate, Rash, 08/16/16) Tolerates ancef strawberry (Verified Allergy, Intermediate, 08/16/16) tazobactam (Verified Allergy, Intermediate, 08/16/16) ROS General: No: Chills, Night Sweats, Fatigue, Malaise, Appetite, Other PSYCHOLOGICAL ROS: No: Anxiety, Behavioral Disorder, Concentration difficultie , Decreased libido, Depression, Disorientation, Hallucinations, Hostility, Irritablity, Memory difficulties, Mood Swings, Obsessive thoughts, Physical abuse, Sexual abuse, Sleep disturbances, Suicidal ideation, Other Eyes: No Blurry vision, No Decreased vision, No Double vision, No Dry eyes, No Excessive tearing, No Eye Pain, No Itchy Eyes, No Loss of vision, No Photophobia , No Scotomata, No Uses contacts, No Uses glasses, No Other HEENT: No: Heacaches, Visual Changes, Hearing change, Nasal congestion, Nasal discharge, Oral lesions, Sinus pain, Sore Throat, Epistaxis, Sneezing, Snoring, Tinnitus, Vertigo, Vocal changes, Other ALLERGY AND IMMUNOLOGY: No: Hives, Insect Bite Sensitivity, Itchy/Watery Eyes, Nasal Congestion, Post Nasal Drip, Seasonal Allergies, Other Hematological and Lymphatic: No: Bleeding Problems, Blood Clots, Blood Transfusions, Brusing, Night Sweats, Pallor, Swollen Lymph Nodes, Other ENDOCRINE: No: Breast Changes, Galactorrhea, Hair Pattern Changes, Hot Flashes , Malaise/lethargy, Mood Swings, Palpitations, Polydipsia/polyuria, Skin Changes , Temperature Intolerance, Unexpected Weight Changes, Other Breast: No New/Changing Breast Lumps, No Nipple changes, No Nipple discharge, No Other Respiratory: No: Cough, Hemoptysis, Orthopnea, Pleuritic Pain, Shortness of breath, SOB with excertion, Sputum Changes, Stridor, Tachypnea, Wheezing, Other Cardiovascular: No Chest Pain, No Palpitations, No Orthopnea, No Paroxysmal Noc. Dyspnea, No Edema, No Lt Headedness, No Other Gastrointestinal: No Nausea, No Vomiting, No Abdominal Pain, No Diarrhea, No Constipation, No Melena, No Hematochezia, No Other Genitourinary: No Dysuria, No Frequency, No Incontinence, No Hematuria, No Retention, No Discharge, No Urgency, No Pain, No Flank Pain, No Other, No , No , No , No , No , No , No Musculoskeletal: No Gait Disturbance, No Joint Pain, No Joint Stiffness, No Joint Swelling, No Muscle Pain, No Muscular Weakness, No Pain In:, No Swelling In:, No Other Neurological: No Behavorial Changes, No Bowel/Bladder ControlChng, No Confusion , No Dizziness, No Gait Disturbance, No Headaches, No Impaired Coord/balance, No Memory Loss, No Numbness/Tingling, No Seizures, No Speech Problems, No Tremors, No Visual Changes, No Weakness, No Other Skin: Yes Other (rash on nape, raised hives, erythematous, left ear is swollen , red and warm to touch; let foot in dressing, tender) Labs Labs Laboratory Tests Test 10/08/16 20:33 Glucose (Fingerstick) 135 mg/dL (70-99) Laboratory Tests Test 10/08/16 20:33 Glucose (Fingerstick) 135 mg/dL (70-99) VTE Prophylaxis Ordered VTE Prophylaxis Devices: Yes VTE Pharmacological Prophylaxi: Yes Assessment/Plan Assessment/Plan 1. R toe wound infection, concerns for osteomyelitis 2. ESRD on HD TTHS 3. AOCD 4. Left amputee 5. HX CABG 6. Left ear swelling and nape rash after PCN 7. Allergy to Zosyn and meropnemen 8. Indwelling left Central line PLAN: Admit 2 MN Check basic labs include BC x 2 ESR, lactic acid Consult ID and renal re HD GEnt and vanc per pharmacy Flagyl and levaquin IV per ID Check foot xray Check arterial doppler R PT/OT Supprotive meds Resume home meds [facility] consult DAVID PINTO MD Oct 08, 2016 21:37
[2016-10-08] MEDS: diphenhydrAMINE HCL 25 MG CAPSULE PO SCH ×2 (22:00→22:39)
[2016-10-08] MEDS ORDERED: VANCOMYCIN 2 GM in IV NORMAL SALINE 500ML BAG 500 ML IV ONE (22:00)
[2016-10-08] MEDS ORDERED: GENTAMICIN SULFATE IV ONE ×2 (22:00→23:00)
[2016-10-08] MEDS ORDERED: NORMAL SALINE IV ONE ×2 (22:00→23:00)
[2016-10-08] MEDS: VANCOMYCIN PER PHARMACY MC PRN (22:03)
[2016-10-08] MEDS: GENTAMICIN PER PHARMACY. MC PRN ×2 (22:08→22:54)
[2016-10-08 22:30] LABS: BASO # 0.1 x10^3/uL (0.0-0.2); BASO % 1 % (0-3); EOS % 2 % (0-3); HEMATOCRIT 31.9 % (36.0-47.0); HEMOGLOBIN 11.3 g/dL (12.0-15.5); LYMPH # 0.9 x10^3/uL (1.0-4.8); LYMPH % 9 % (24-48); MEAN CORPUSCULAR HEMOGLOBIN 32 pg (25-35); MEAN CORPUSCULAR HGB CONC 36 g/dL (31-37); MEAN CORPUSCULAR VOLUME 91 fL (79-100); MONO % 8 % (0-9); NEUT % 81 % (31-73); PLATELET COUNT 220 x10^3/uL (140-400); RED BLOOD COUNT 3.52 x10^6/uL (3.50-5.40); RED CELL DISTRIBUTION WIDTH 13.8 % (11.5-14.5); WHITE BLOOD COUNT 10.9 x10^3/uL (4.0-11.0)
[2016-10-08] MEDS: fentaNYL PF VIAL 100 MCG/2 ML VIAL IV PRN (22:39)
[2016-10-08] MEDS: ONDANSETRON PF 4 MG/2 ML VIAL. IV PRN (22:40)
[2016-10-08 22:44] LABS: ALBUMIN 3.2 g/dL (3.4-5.0); ALBUMIN/GLOBULIN RATIO 0.9 (1.0-1.7); CALCIUM 8.5 mg/dL (8.5-10.1); CREATININE 5.5 mg/dL (0.6-1.0); GFR 8.2; TOTAL BILIRUBIN 0.4 mg/dL (0.2-1.0); TOTAL PROTEIN 6.6 g/dL (6.4-8.2)
[2016-10-08] MEDS: diphenhydrAMINE 50 MG/ML VIAL IVP PRN (22:51)
[2016-10-08 23:00] VITALS: BP 156/76
[2016-10-09] MEDS: MORPHINE ER 15 MG TABLET.ER PO SCH ×3 (00:12→22:19)
[2016-10-09] MEDS: FENOFIBRATE,MICRONIZED 134 MG CAPSULE PO SCH ×2 (00:12→22:20)
[2016-10-09] MEDS: HEPARIN PF for SUB-Q USE 5,000 UNIT/0.5 ML VIAL. SQ SCH ×4 (00:15→22:00)
[2016-10-09] MEDS: fentaNYL PF VIAL 100 MCG/2 ML VIAL IV PRN ×7 (01:58→20:28)
[2016-10-09 03:00] VITALS: BP 151/79
[2016-10-09] MEDS: oxyCODONE/APAP 10/325 1 TAB TABLET PO SCH ×6 (03:56→22:19)
[2016-10-09] MEDS ORDERED: diphenhydrAMINE HCL 25 MG CAPSULE PO ONE (04:00)
[2016-10-09 06:17] LABS: INR 1.3 (0.8-1.1); PROTHROMBIN TIME PATIENT 15.5 SEC (11.7-14.0)
[2016-10-09 07:00] VITALS: BP 150/73
[2016-10-09 07:16] LABS: BILIRUBIN,URINE NEGATIVE (NEG); GLUCOSE,URINE 100 mg/dL (NEG); NITRITE,URINE NEGATIVE (NEG); PROTEIN,URINE >=300 mg/dL (NEG-TRACE); UROBILINOGEN,URINE 0.2 mg/dL (0.2 mg/dL)
[2016-10-09 07:30] LABS: BACTERIA,URINE MANY /HPF (0-FEW); SQUAMOUS EPITHELIAL CELL,UR MANY /LPF
[2016-10-09] MEDS ORDERED: INSULIN ASPART 300 UNITS/3 ML INSULN.PEN SQ SCH (07:30)
[2016-10-09] MEDS: CARVEDILOL 12.5 MG TABLET. PO SCH ×2 (08:00→16:46)
[2016-10-09] MEDS: SEVELAMER CARBONATE 800 MG TABLET. PO SCH ×3 (08:00→16:45)
--- NOTE | 2016-10-09 08:15 | RAD ---
Right lower extremity arterial ultrasound, 10/08/2016: History: Peripheral vascular disease, nonhealing wound Duplex evaluation of the major arteries in both lower extremities was performed including grayscale, color-flow and spectral Doppler analysis. There are moderate scattered partially calcified plaques. The right common femoral artery demonstrates a monophasic Doppler waveform with a peak systolic velocity 184 cm/s. The Doppler waveforms in the superficial femoral, deep femoral and popliteal arteries are also monophasic. No significant focal velocity acceleration is seen in the superficial femoral or popliteal arteries to suggest high-grade focal stenosis. Patent anterior tibial, posterior tibial and peroneal arteries are present in the right lower leg demonstrating monophasic Doppler waveforms. The proximal right anterior tibial Doppler waveform is quite dampened. A patent dorsalis pedis artery is identified with a monophasic Doppler waveform. IMPRESSION: 1. Moderate generalized calcific plaquing. 2. Monophasic common femoral Doppler waveform suggesting aortoiliac inflow disease. 3. Gradual degradation of the distal Doppler waveforms without evidence of high-grade focal femoral-popliteal stenosis.
--- NOTE | 2016-10-09 08:22 | RAD ---
Right great toe, 10/08/2016: History: Nonhealing wound Comparison is made to a study from 08/15/2016. The great toe is held in plantar flexion at the IP joint level. There is a cortical erosion along the medial aspect of the distal portion of the proximal phalanx near the IP joint. There appears to be an overlying soft tissue wound. This erosion appears to have worsened since the previous study suggesting osteomyelitis. Mild cortical irregularity of the terminal tuft of the distal phalanx is unchanged. Again noted are previous amputations of the second and third toes at the mid to distal metatarsal level. IMPRESSION: Increasing small cortical erosion involving the distal aspect of the proximal phalanx of the great toe suggesting osteomyelitis.
--- NOTE | 2016-10-09 08:36 | PDOC ---
Infectious Disease Note Subjective Subjective Admitted from ID office 10/08. Had been treated with IV Cefazolin for MSSA toe osteomyelitis for 6 weeks and changed to oral but became ill on Thursday. Presented to the office with temp 99.5 N/V c/o loose stool but not c/w c -diff and increased swelling and redness of her right great toe. I recommended admission. D/w Dr. Mcbride and made recommendations She is ok this am. Was able to tolerate a sandwich. Had a stool but not gross diarrhea. Still sweats. Mild DO and tired ROS ROS HEENT: Denies blurred vision, sore throat CV: Denies chest pain RESP: Denies shortness of air, cough GI: Denies n/v/d NEURO: Denies confusion, dizziness MSK: Denies weakness, joint pain/swelling Vital Sign Vital Signs Vital Signs Date Time Temp Pulse Resp B/P (MAP) Pulse Ox O2 Delivery O2 Flow Rate FiO2 10/09/16 06:25 16 Room Air 10/09/16 03:00 98.6 97 151/79 (103) 96 98.6 Physical Exam PHYSICAL EXAM GENERAL: NAD, Alert, coop HEENT: PERRL, OC/OP- clear NECK: Supple, no JVD, no LN LUNGS: Clear HEART: S1S2, no gallop, no murmur ABD: Soft, NT, no organomegaly, no rebound EXT: Left BKA. Right great toe with erythema and edema. wound on dorsal aspect dressed AGRICULTURE INTERN: Alert, oriented x 3, no focal neurologic deficit SKIN: No rash IV: Fistula clean. Left chest power PICC clean Labs Lab Laboratory Tests Test 10/08/16 20:33 10/08/16 22:00 10/09/16 05:33 10/09/16 05:45 Glucose (Fingerstick) 135 mg/dL (70-99) White Blood Count 10.9 x10^3/uL (4.0-11.0) Red Blood Count 3.52 x10^6/uL (3.50-5.40) Hemoglobin 11.3 g/dL (12.0-15.5) Hematocrit 31.9 % (36.0-47.0) Mean Corpuscular Volume 91 fL (79-100) Mean Corpuscular Hemoglobin 32 pg (25-35) Mean Corpuscular Hemoglobin Concent 36 g/dL (31-37) Red Cell Distribution Width 13.8 % (11.5-14.5) Platelet Count 220 x10^3/uL (140-400) Neutrophils (%) (Auto) 81 % (31-73) Lymphocytes (%) (Auto) 9 % (24-48) Monocytes (%) (Auto) 8 % (0-9) Eosinophils (%) (Auto) 2 % (0-3) Basophils (%) (Auto) 1 % (0-3) Neutrophils # (Auto) 8.8 x10^3uL (1.8-7.7) Lymphocytes # (Auto) 0.9 x10^3/uL (1.0-4.8) Monocytes # (Auto) 0.8 x10^3/uL (0.0-1.1) Eosinophils # (Auto) 0.2 x10^3/uL (0.0-0.7) Basophils # (Auto) 0.1 x10^3/uL (0.0-0.2) Sodium Level 134 mmol/L (136-145) Potassium Level 4.0 mmol/L (3.5-5.1) Chloride Level 94 mmol/L (98-107) Carbon Dioxide Level 29 mmol/L (21-32) Anion Gap 11 (6-14) Blood Urea Nitrogen 50 mg/dL (7-20) Creatinine 5.5 mg/dL (0.6-1.0) Estimated GFR (Cockcroft-Gault) 8.2 BUN/Creatinine Ratio 9 (6-20) Glucose Level 153 mg/dL (70-99) Calcium Level 8.5 mg/dL (8.5-10.1) Total Bilirubin 0.4 mg/dL (0.2-1.0) Aspartate Amino Transf (AST/SGOT) 14 U/L (15-37) Alanine Aminotransferase (ALT/SGPT) 12 U/L (14-59) Alkaline Phosphatase 163 U/L (46-116) Total Protein 6.6 g/dL (6.4-8.2) Albumin 3.2 g/dL (3.4-5.0) Albumin/Globulin Ratio 0.9 (1.0-1.7) Random Gentamicin Level 0.4 mcg/mL Erythrocyte Sedimentation Rate 64 (0-25) Prothrombin Time 15.5 SEC (11.7-14.0) Prothromb Time International Ratio 1.3 (0.8-1.1) Lactic Acid Level 0.7 mmol/L (0.4-2.0) Urine Collection Type Clean catch Urine Color Yellow Urine Clarity Clear Urine pH 7.0 Urine Specific [place] 1.015 Urine Protein >=300 mg/dL (NEG-TRACE) Urine Glucose (UA) 100 mg/dL (NEG) Urine Ketones (Stick) Negative mg/dL (NEG) Urine Blood Small (NEG) Urine Nitrite Negative (NEG) Urine Bilirubin Negative (NEG) Urine Urobilinogen Dipstick 0.2 mg/dL (0.2 mg/dL) Urine Leukocyte Esterase Negative (NEG) Urine RBC 3-5 /HPF (0-2) Urine WBC 5-10 /HPF (0-4) Urine Squamous Epithelial Cells Many /LPF Urine Bacteria Many /HPF (0-FEW) Test 10/09/16 06:11 Glucose (Fingerstick) 163 mg/dL (70-99) Objective Assessment Fever Toe wound ? worsening osteo ? PAD - arterial doppler pending CKD - on HD Recent MSSA Abx allergies- MEROPENEM AND PIPERACILLIN/TAZOBACTAM CAUSING "BLEEDING RASH" DESCRIBED THE SKIN PEELING AND BLEEDING, ALSO SULFA Plan Plan of Care Appreciate Dr. Mcbride's assistance Cont Vanc/Gent/Levoflox/Flagyl - adjust doses F/u labs/cult and C-diff F/u arterial studies may need amputation of toe ALBERTO NAVA MD Oct 09, 2016 08:36
[2016-10-09] MEDS: diphenhydrAMINE HCL 25 MG CAPSULE PO SCH ×3 (08:47→20:28)
[2016-10-09] MEDS: ONDANSETRON PF 4 MG/2 ML VIAL. IV PRN ×3 (08:52→23:04)
[2016-10-09] MEDS: FUROSEMIDE 80 MG TABLET. PO SCH ×2 (09:00→14:00)
[2016-10-09] MEDS: ASPIRIN 325 MG TABLET PO SCH (09:00)
[2016-10-09] MEDS: FOLIC/VIT B COMP W-C (RENAL) TABLET. PO SCH (09:00)
[2016-10-09] MEDS ORDERED: GENTAMICIN RANDOM LEVEL. MC ONE (09:00)
[2016-10-09] MEDS ORDERED: DEXTROSE 50% 25 GM / 50ML DISP.SYRIN. IV PRN (09:30)
[2016-10-09] MEDS: GENTAMICIN PER PHARMACY. MC PRN (10:30)
[2016-10-09 11:00] VITALS: BP 137/70
[2016-10-09] MEDS: INSULIN ASPART 300 UNITS/3 ML INSULN.PEN SQ SCH ×3 (11:32→23:55)
--- NOTE | 2016-10-09 11:46 | PDOC2 ---
CONSULT Date of Consult Date of Consult DATE: 10/09/16 TIME: 11:43 Reason for Consult Reason for Consult: ESRD Referring Physician Referring Physician: MILLIE Identification/Chief Complaint Chief Complaint FOOT PAIN Source Source: Chart review, Patient History of Present Illness Reason for Visit: THIS IS A 51 YR OLD ADMITTED WITH A NON HEALING RIGHT FOOT TOE WOUND. SHE HAS FAILED OP TX. SHE HAS ESRD AND IS ON HD ON TTS. LABS ARE C/W ESRD Past Medical History Cardiovascular: CAD, CHF, HTN, GA, Hyperlipidemia Pulmonary: Asthma, COPD, Pneumonia CENTRAL NERVOUS SYSTEM: Other GI: GERD Heme/Onc: Anemia NOS Hepatobiliary: No pertinent hx Psych: No pertinent hx Rheumatologic: Fibromyalgia Infectious disease: Other Renal/: Chronic renal failure Endocrine: Diabetes, Hyperparathyroidism Past Surgical History Past Surgical History: CABG, Hysterectomy, Other Family History Family History: Diabetes, Hypertension Social History No ALCOHOL: none Drugs: None Lives: with Family Current Medications Current Medications Current Medications Vancomycin HCl (Vanco Per Pharmacy) 1 each PRN DAILY PRN MC SEE COMMENTS Last administered on 10/08/16 22:03; Start 10/08/16 at 20:15 Gentamicin Sulfate 1 each PRN DAILY PRN MC SEE COMMENTS Last administered on 10:30; Start 10/08/16 at 20:15 Levofloxacin/ Dextrose 100 ml @ 100 mls/hr Q24H IV Last administered on 01:20; Start 10/08/16 at 21:00; Stop 10/09/16 at 08:36; Status DC Metronidazole 100 ml @ 100 mls/hr Q12HR IV Last administered on 10/09/16 03: 42; Start 10/08/16 at 21:00; Stop 10/09/16 at 08:36; Status DC Ondansetron HCl (Zofran) 4 mg PRN Q6HRS PRN IV NAUSEA/VOMITING Last administered on 10/09/16 08:52; Start 10/08/16 at 20:15 Acetaminophen (Tylenol) 650 mg PRN Q6HRS PRN PO FEVER; Start 10/08/16 at 20:15 Morphine Sulfate 2 mg PRN Q2HR PRN IV PAIN; Start 10/08/16 at 20:15; Stop 10/08 at 21:26; Status DC Acetaminophen/ Hydrocodone Bitart (Lortab 5/325) 1 tab PRN Q4HRS PRN PO PAIN; Start 10/08/16 at 20:15 Fentanyl Citrate (Fentanyl 2ml Vial) 50 mcg PRN Q2HR PRN IV PAIN Last administered on 10/09/16 11:38; Start 10/08/16 at 21:30 Aspirin (Anthony Aspirin) 325 mg DAILY PO ; Start 10/09/16 at 09:00 Carvedilol (Coreg) 12.5 mg BIDWMEALS PO ; Start 10/09/16 at 08:00 Docusate Sodium (Colace) 100 mg PRN BID PRN PO CONSTIPATION; Start 10/08/16 at 21:30 Fluconazole (Diflucan) 100 mg DAILY16 PO ; Start 10/09/16 at 16:00 Vitamin B Complex/ Vitamin C (Melly-Shabbir) 1 tab DAILY PO ; Start 10/09/16 at 09: 00 Furosemide (Lasix) 80 mg BID92 PO ; Start 10/09/16 at 09:00 Morphine Sulfate (Ms Contin) 15 mg BID PO ; Start 10/09/16 at 21:30; Stop at 21:30; Status DC Nitroglycerin (Nitrostat) 0.4 mg PRN Q5MIN PRN SL CHEST PAIN; Start 10/08/16 at 21:30 Oxycodone/ Acetaminophen (Percocet 10/325) 1 tab Q4HRS PO ; Start 10/09/16 at 00 :00 Sevelamer Carbonate (Renvela) 800 mg TIDWMEALS PO ; Start 10/09/16 at 08:00 Tramadol HCl (Ultram) 50 mg PRN Q6HRS PRN PO PAIN; Start 10/08/16 at 21:30 Atorvastatin Calcium (Lipitor) 80 mg QHS PO ; Start 10/09/16 at 21:00 Fenofibrate (Lofibra) 134 mg QHS PO Last administered on 10/09/16 00:12; Start 10/08/16 at 22:00 Niacin (Slo-Niacin) 500 mg QHS PO ; Start 10/09/16 at 21:00 Non-Formulary Medication 210 mg TIDWMEALS PO ; Start 10/09/16 at 08:00; Status UNV Diphenhydramine HCl (Benadryl) 25 mg PRN Q6HRS PRN IVP ITCHING Last administered on 10/08/16 22:51; Start 10/08/16 at 21:30 Diphenhydramine HCl (Benadryl) 25 mg TID PO ; Start 10/08/16 at 21:30; Status Cancel Heparin Sodium (Porcine) (Heparin Sq) 5,000 unit Q8HRS SQ Last administered on 10/09/16 05:57; Start 10/08/16 at 22:00 Vancomycin HCl 2 gm/Sodium Chloride 500 ml @ 250 mls/hr 1X ONCE IV Last administered on 10/09/16 00:09; Start 10/08/16 at 22:00; Stop 10/08/16 at 23:59 ; Status DC Morphine Sulfate (Ms Contin) 15 mg BID PO Last administered on 10/09/16 08:47 ; Start 10/08/16 at 22:00 Diphenhydramine HCl (Benadryl) 50 mg TID PO Last administered on 10/09/16 08: 47; Start 10/08/16 at 22:00 Gentamicin Sulfate 170 mg/ Sodium Chloride 104.25 ml @ 104.25 mls/hr 1X ONCE IV ; Start 10/08/16 at 22:00; Stop 10/08/16 at 22:59; Status Cancel Gentamicin Sulfate 145 mg/ Sodium Chloride 103.625 ml @ 103.625 mls/hr 1X ONCE IV Last administered on 10/08/16 22:51; Start 10/08/16 at 23:00; Stop at 23:59; Status DC Gentamicin Sulfate 1 each 1X ONCE MC Last administered on 10/09/16 09:00; Start 10/09/16 at 09:00; Stop 10/09/16 at 09:01; Status DC Vancomycin HCl 1 each 1X ONCE MC ; Start 10/11/16 at 00:00; Stop 10/11/16 at 00 :01 Diphenhydramine HCl (Benadryl) 50 mg 1X ONCE PO Last administered on 03:55; Start 10/09/16 at 04:00; Stop 10/09/16 at 04:01; Status DC Levofloxacin/ Dextrose 100 ml @ 100 mls/hr Q48H IV ; Start 10/10/16 at 21:00 Metronidazole 100 ml @ 100 mls/hr Q8HRS IV ; Start 10/09/16 at 14:00 Insulin Aspart (NovoLOG) 0-9 UNITS TIDWMEALS SQ ; Start 10/09/16 at 12:00 Dextrose (Dextrose 50%-Water Syringe) 12.5 gm PRN Q15MIN PRN IV SEE COMMENTS; Start 10/09/16 at 09:30 Active Scripts Active Percocet 10-325 Mg Tablet (Oxycodone/Acetaminophen) 1 Each Tablet 1 Tab PO Q4HRS Fluconazole 100 Mg Tablet 100 Mg PO DAILY16 Renvela (Sevelamer Carbonate) 800 Mg Tablet 800 Mg PO TIDWMEALS Morphine Sulfate Er (Morphine Sulfate) 15 Mg Tablet.er 15 Mg PO BID Reported Zofran (Ondansetron Hcl) 4 Mg Tablet 4 Mg PO Q6-8HRS PRN Lantus Solostar (Insulin Glargine,Hum.rec.anlog) 100 Unit/1 Ml Insuln.pen 10 Unit SQ QHS [auryxia] 210 Mg PO TIDWMEALS Carvedilol 12.5 Mg Tablet 1 Tab PO DAILY Carvedilol 12.5 Mg Tablet 1 Tab PO BID Nephro-Shabbir Tablet (Folic Acid/Vitamin B Comp W-C) 0.8 Mg Tablet 1 Tab PO DAILY Fluconazole 100 Mg Tablet 150 Mg PO PRN PRN Tramadol Hcl 50 Mg Tablet 50 Mg PO Q6H PRN Tricor (Fenofibrate Nanocrystallized) 145 Mg Tablet 1 Tab PO HS Lipitor (Atorvastatin Calcium) 80 Mg Tablet 80 Mg PO HS Niacin 500 Mg Tablet 500 Mg PO HS Novolog (Insulin Aspart) 100 Unit/1 Ml Cartridge 0 SQ TIDAC sliding scale Aspirin 325 Mg Tablet 325 Mg PO DAILY Furosemide 80 Mg Tablet 80 Mg PO BID Docusate Sodium 100 Mg Capsule 1 Cap PO PRN PRN Nitrostat (Nitroglycerin) 0.4 Mg Tab.subl 0.4 Mg SL PRN Q5MIN PRN Take as needed for chest pain Allergies Allergies: Coded Allergies: Sulfa (Sulfonamide Antibiotics) (Verified Allergy, Intermediate, 08/16/16) meropenem (Verified Allergy, Intermediate, 08/16/16) Tolerates ancef piperacillin (Verified Allergy, Intermediate, Rash, 08/16/16) Tolerates ancef strawberry (Verified Allergy, Intermediate, 08/16/16) tazobactam (Verified Allergy, Intermediate, 08/16/16) ROS General: YES: Fatigue, Malaise PSYCHOLOGICAL ROS: YES: Anxiety, Depression Eyes: Yes Decreased vision HEENT: YES: Heacaches Respiratory: YES: Cough Gastrointestinal: Yes Constipation Genitourinary: YES Other (ANURIA) Musculoskeletal: Yes Muscular Weakness Neurological: Yes Weakness Skin: Yes Dry Skin Physical Exam General: Alert, Cooperative, No acute distress HEENT: Atraumatic, PERRLA, EOMI Lungs: Clear to auscultation Heart: Regular rate, No murmurs Abdomen: Normal bowel sounds Extremities: No edema Psych/Mental Status: Mental status NL, Mood NL MUSCULOSKELETAL: No joint tenderness, No swelling Vitals VITALS Vital Signs Date Time Temp Pulse Resp B/P (MAP) Pulse Ox O2 Delivery O2 Flow Rate FiO2 10/09/16 11:00 97.9 90 20 137/70 (92) 94 Room Air 97.9 Labs Labs Laboratory Tests Test 10/08/16 20:33 10/08/16 22:00 10/09/16 05:33 10/09/16 05:45 Glucose (Fingerstick) 135 mg/dL (70-99) White Blood Count 10.9 x10^3/uL (4.0-11.0) Red Blood Count 3.52 x10^6/uL (3.50-5.40) Hemoglobin 11.3 g/dL (12.0-15.5) Hematocrit 31.9 % (36.0-47.0) Mean Corpuscular Volume 91 fL (79-100) Mean Corpuscular Hemoglobin 32 pg (25-35) Mean Corpuscular Hemoglobin Concent 36 g/dL (31-37) Red Cell Distribution Width 13.8 % (11.5-14.5) Platelet Count 220 x10^3/uL (140-400) Neutrophils (%) (Auto) 81 % (31-73) Lymphocytes (%) (Auto) 9 % (24-48) Monocytes (%) (Auto) 8 % (0-9) Eosinophils (%) (Auto) 2 % (0-3) Basophils (%) (Auto) 1 % (0-3) Neutrophils # (Auto) 8.8 x10^3uL (1.8-7.7) Lymphocytes # (Auto) 0.9 x10^3/uL (1.0-4.8) Monocytes # (Auto) 0.8 x10^3/uL (0.0-1.1) Eosinophils # (Auto) 0.2 x10^3/uL (0.0-0.7) Basophils # (Auto) 0.1 x10^3/uL (0.0-0.2) Sodium Level 134 mmol/L (136-145) Potassium Level 4.0 mmol/L (3.5-5.1) Chloride Level 94 mmol/L (98-107) Carbon Dioxide Level 29 mmol/L (21-32) Anion Gap 11 (6-14) Blood Urea Nitrogen 50 mg/dL (7-20) Creatinine 5.5 mg/dL (0.6-1.0) Estimated GFR (Cockcroft-Gault) 8.2 BUN/Creatinine Ratio 9 (6-20) Glucose Level 153 mg/dL (70-99) Calcium Level 8.5 mg/dL (8.5-10.1) Total Bilirubin 0.4 mg/dL (0.2-1.0) Aspartate Amino Transf (AST/SGOT) 14 U/L (15-37) Alanine Aminotransferase (ALT/SGPT) 12 U/L (14-59) Alkaline Phosphatase 163 U/L (46-116) Total Protein 6.6 g/dL (6.4-8.2) Albumin 3.2 g/dL (3.4-5.0) Albumin/Globulin Ratio 0.9 (1.0-1.7) Random Gentamicin Level 0.4 mcg/mL Erythrocyte Sedimentation Rate 64 (0-25) Prothrombin Time 15.5 SEC (11.7-14.0) Prothromb Time International Ratio 1.3 (0.8-1.1) Lactic Acid Level 0.7 mmol/L (0.4-2.0) Urine Collection Type Clean catch Urine Color Yellow Urine Clarity Clear Urine pH 7.0 Urine Specific [place] 1.015 Urine Protein >=300 mg/dL (NEG-TRACE) Urine Glucose (UA) 100 mg/dL (NEG) Urine Ketones (Stick) Negative mg/dL (NEG) Urine Blood Small (NEG) Urine Nitrite Negative (NEG) Urine Bilirubin Negative (NEG) Urine Urobilinogen Dipstick 0.2 mg/dL (0.2 mg/dL) Urine Leukocyte Esterase Negative (NEG) Urine RBC 3-5 /HPF (0-2) Urine WBC 5-10 /HPF (0-4) Urine Squamous Epithelial Cells Many /LPF Urine Bacteria Many /HPF (0-FEW) Test 10/09/16 06:11 10/09/16 08:53 10/09/16 09:00 Glucose (Fingerstick) 163 mg/dL (70-99) 148 mg/dL (70-99) Random Gentamicin Level 5.0 mcg/mL Laboratory Tests Test 10/08/16 20:33 10/08/16 22:00 10/09/16 05:33 10/09/16 05:45 Glucose (Fingerstick) 135 mg/dL (70-99) White Blood Count 10.9 x10^3/uL (4.0-11.0) Red Blood Count 3.52 x10^6/uL (3.50-5.40) Hemoglobin 11.3 g/dL (12.0-15.5) Hematocrit 31.9 % (36.0-47.0) Mean Corpuscular Volume 91 fL (79-100) Mean Corpuscular Hemoglobin 32 pg (25-35) Mean Corpuscular Hemoglobin Concent 36 g/dL (31-37) Red Cell Distribution Width 13.8 % (11.5-14.5) Platelet Count 220 x10^3/uL (140-400) Neutrophils (%) (Auto) 81 % (31-73) Lymphocytes (%) (Auto) 9 % (24-48) Monocytes (%) (Auto) 8 % (0-9) Eosinophils (%) (Auto) 2 % (0-3) Basophils (%) (Auto) 1 % (0-3) Neutrophils # (Auto) 8.8 x10^3uL (1.8-7.7) Lymphocytes # (Auto) 0.9 x10^3/uL (1.0-4.8) Monocytes # (Auto) 0.8 x10^3/uL (0.0-1.1) Eosinophils # (Auto) 0.2 x10^3/uL (0.0-0.7) Basophils # (Auto) 0.1 x10^3/uL (0.0-0.2) Sodium Level 134 mmol/L (136-145) Potassium Level 4.0 mmol/L (3.5-5.1) Chloride Level 94 mmol/L (98-107) Carbon Dioxide Level 29 mmol/L (21-32) Anion Gap 11 (6-14) Blood Urea Nitrogen 50 mg/dL (7-20) Creatinine 5.5 mg/dL (0.6-1.0) Estimated GFR (Cockcroft-Gault) 8.2 BUN/Creatinine Ratio 9 (6-20) Glucose Level 153 mg/dL (70-99) Calcium Level 8.5 mg/dL (8.5-10.1) Total Bilirubin 0.4 mg/dL (0.2-1.0) Aspartate Amino Transf (AST/SGOT) 14 U/L (15-37) Alanine Aminotransferase (ALT/SGPT) 12 U/L (14-59) Alkaline Phosphatase 163 U/L (46-116) Total Protein 6.6 g/dL (6.4-8.2) Albumin 3.2 g/dL (3.4-5.0) Albumin/Globulin Ratio 0.9 (1.0-1.7) Random Gentamicin Level 0.4 mcg/mL Erythrocyte Sedimentation Rate 64 (0-25) Prothrombin Time 15.5 SEC (11.7-14.0) Prothromb Time International Ratio 1.3 (0.8-1.1) Lactic Acid Level 0.7 mmol/L (0.4-2.0) Urine Collection Type Clean catch Urine Color Yellow Urine Clarity Clear Urine pH 7.0 Urine Specific [place] 1.015 Urine Protein >=300 mg/dL (NEG-TRACE) Urine Glucose (UA) 100 mg/dL (NEG) Urine Ketones (Stick) Negative mg/dL (NEG) Urine Blood Small (NEG) Urine Nitrite Negative (NEG) Urine Bilirubin Negative (NEG) Urine Urobilinogen Dipstick 0.2 mg/dL (0.2 mg/dL) Urine Leukocyte Esterase Negative (NEG) Urine RBC 3-5 /HPF (0-2) Urine WBC 5-10 /HPF (0-4) Urine Squamous Epithelial Cells Many /LPF Urine Bacteria Many /HPF (0-FEW) Test 10/09/16 06:11 10/09/16 08:53 10/09/16 09:00 Glucose (Fingerstick) 163 mg/dL (70-99) 148 mg/dL (70-99) Random Gentamicin Level 5.0 mcg/mL Assessment/Plan Assessment/Plan IMP RIGHT FOOT TOE OSTEO ANEMIA DM II HTN ESRD PLAN WOUND CARE ANTIBIOTICS HD TODAY UF TO [facility] WHEN APPROPRIATE CHARLY ZAVALA MD Oct 09, 2016 11:46
[2016-10-09] MEDS ORDERED: IV NORMAL SALINE 1000ML BAG 1,000 ML IV PRN ×2 (11:48)
[2016-10-09] MEDS ORDERED: LIDOCAINE 1% PF 2 ML VIAL. ONE (12:00)
[2016-10-09] MEDS ORDERED: DIALYSIS PATIENT. MC PRN (12:00)
[2016-10-09] MEDS ORDERED: diphenhydrAMINE 50 MG/ML VIAL IV PRN ×2 (12:00)
[2016-10-09] MEDS ORDERED: ALBUMIN HUMAN 25% 200 ML IV PRN (12:00)
[2016-10-09] MEDS ORDERED: LIDOCAINE 1% PF 2 ML VIAL. ID STA (12:06)
--- NOTE | 2016-10-09 12:37 | PDOC ---
PROGRESS NOTES Chief Complaint Chief Complaint 1. R toe wound infection with h/o osteomyelitis post amputation, concerns for osteomyelitis 2. ESRD on HD TTHS 3. AOCD 4. Left BKA 5. HX CABG 6. Left ear swelling and nape rash recently on cefazolin 7. Allergy to Zosyn and meropnemen with hemarrhagic rash 8. Indwelling left chest Central line 9. dm2 on low dose insulin 10. low Albumin with ESRD PLAN: FU WITH ID, ON several abx ssi cont home meds vascular consult for PAD, altho no severe fem-pop PAD, seems has aortoilliac PAD , may need amputation too cont HD dvt ppx pain control ptot History of Present Illness History of Present Illness right foot with dressing feels ok, but left ear, left neck has some rash with either bacteria infection or blisters, pain, tender Vitals Vitals Vital Signs Date Time Temp Pulse Resp B/P (MAP) Pulse Ox O2 Delivery O2 Flow Rate FiO2 10/09/16 11:00 97.9 90 20 137/70 (92) 94 Room Air 97.9 Physical Exam Physical Exam left ear, left neck has some rash with either bacteria infection or blisters, pain, tender left leg BKA right toes wrapped with dressing General: Alert, Cooperative, No acute distress Heart: Regular rate, No murmurs Lungs: Clear Abdomen: Normal bowel sounds Extremities: No edema Labs LABS Laboratory Tests Test 10/08/16 20:33 10/08/16 22:00 10/09/16 05:33 10/09/16 05:45 Glucose (Fingerstick) 135 mg/dL (70-99) White Blood Count 10.9 x10^3/uL (4.0-11.0) Red Blood Count 3.52 x10^6/uL (3.50-5.40) Hemoglobin 11.3 g/dL (12.0-15.5) Hematocrit 31.9 % (36.0-47.0) Mean Corpuscular Volume 91 fL (79-100) Mean Corpuscular Hemoglobin 32 pg (25-35) Mean Corpuscular Hemoglobin Concent 36 g/dL (31-37) Red Cell Distribution Width 13.8 % (11.5-14.5) Platelet Count 220 x10^3/uL (140-400) Neutrophils (%) (Auto) 81 % (31-73) Lymphocytes (%) (Auto) 9 % (24-48) Monocytes (%) (Auto) 8 % (0-9) Eosinophils (%) (Auto) 2 % (0-3) Basophils (%) (Auto) 1 % (0-3) Neutrophils # (Auto) 8.8 x10^3uL (1.8-7.7) Lymphocytes # (Auto) 0.9 x10^3/uL (1.0-4.8) Monocytes # (Auto) 0.8 x10^3/uL (0.0-1.1) Eosinophils # (Auto) 0.2 x10^3/uL (0.0-0.7) Basophils # (Auto) 0.1 x10^3/uL (0.0-0.2) Sodium Level 134 mmol/L (136-145) Potassium Level 4.0 mmol/L (3.5-5.1) Chloride Level 94 mmol/L (98-107) Carbon Dioxide Level 29 mmol/L (21-32) Anion Gap 11 (6-14) Blood Urea Nitrogen 50 mg/dL (7-20) Creatinine 5.5 mg/dL (0.6-1.0) Estimated GFR (Cockcroft-Gault) 8.2 BUN/Creatinine Ratio 9 (6-20) Glucose Level 153 mg/dL (70-99) Calcium Level 8.5 mg/dL (8.5-10.1) Total Bilirubin 0.4 mg/dL (0.2-1.0) Aspartate Amino Transf (AST/SGOT) 14 U/L (15-37) Alanine Aminotransferase (ALT/SGPT) 12 U/L (14-59) Alkaline Phosphatase 163 U/L (46-116) Total Protein 6.6 g/dL (6.4-8.2) Albumin 3.2 g/dL (3.4-5.0) Albumin/Globulin Ratio 0.9 (1.0-1.7) Random Gentamicin Level 0.4 mcg/mL Erythrocyte Sedimentation Rate 64 (0-25) Prothrombin Time 15.5 SEC (11.7-14.0) Prothromb Time International Ratio 1.3 (0.8-1.1) Lactic Acid Level 0.7 mmol/L (0.4-2.0) Urine Collection Type Clean catch Urine Color Yellow Urine Clarity Clear Urine pH 7.0 Urine Specific [place] 1.015 Urine Protein >=300 mg/dL (NEG-TRACE) Urine Glucose (UA) 100 mg/dL (NEG) Urine Ketones (Stick) Negative mg/dL (NEG) Urine Blood Small (NEG) Urine Nitrite Negative (NEG) Urine Bilirubin Negative (NEG) Urine Urobilinogen Dipstick 0.2 mg/dL (0.2 mg/dL) Urine Leukocyte Esterase Negative (NEG) Urine RBC 3-5 /HPF (0-2) Urine WBC 5-10 /HPF (0-4) Urine Squamous Epithelial Cells Many /LPF Urine Bacteria Many /HPF (0-FEW) Test 10/09/16 06:11 10/09/16 08:53 10/09/16 09:00 Glucose (Fingerstick) 163 mg/dL (70-99) 148 mg/dL (70-99) Random Gentamicin Level 5.0 mcg/mL Review of Systems Review of Systems no fever, chills, sob or chest pain Comment Review of Relevant I have reviewed the following items bert (where applicable) has been applied. Labs Laboratory Tests Test 10/08/16 20:33 10/08/16 22:00 10/09/16 05:33 10/09/16 05:45 Glucose (Fingerstick) 135 mg/dL (70-99) White Blood Count 10.9 x10^3/uL (4.0-11.0) Red Blood Count 3.52 x10^6/uL (3.50-5.40) Hemoglobin 11.3 g/dL (12.0-15.5) Hematocrit 31.9 % (36.0-47.0) Mean Corpuscular Volume 91 fL (79-100) Mean Corpuscular Hemoglobin 32 pg (25-35) Mean Corpuscular Hemoglobin Concent 36 g/dL (31-37) Red Cell Distribution Width 13.8 % (11.5-14.5) Platelet Count 220 x10^3/uL (140-400) Neutrophils (%) (Auto) 81 % (31-73) Lymphocytes (%) (Auto) 9 % (24-48) Monocytes (%) (Auto) 8 % (0-9) Eosinophils (%) (Auto) 2 % (0-3) Basophils (%) (Auto) 1 % (0-3) Neutrophils # (Auto) 8.8 x10^3uL (1.8-7.7) Lymphocytes # (Auto) 0.9 x10^3/uL (1.0-4.8) Monocytes # (Auto) 0.8 x10^3/uL (0.0-1.1) Eosinophils # (Auto) 0.2 x10^3/uL (0.0-0.7) Basophils # (Auto) 0.1 x10^3/uL (0.0-0.2) Sodium Level 134 mmol/L (136-145) Potassium Level 4.0 mmol/L (3.5-5.1) Chloride Level 94 mmol/L (98-107) Carbon Dioxide Level 29 mmol/L (21-32) Anion Gap 11 (6-14) Blood Urea Nitrogen 50 mg/dL (7-20) Creatinine 5.5 mg/dL (0.6-1.0) Estimated GFR (Cockcroft-Gault) 8.2 BUN/Creatinine Ratio 9 (6-20) Glucose Level 153 mg/dL (70-99) Calcium Level 8.5 mg/dL (8.5-10.1) Total Bilirubin 0.4 mg/dL (0.2-1.0) Aspartate Amino Transf (AST/SGOT) 14 U/L (15-37) Alanine Aminotransferase (ALT/SGPT) 12 U/L (14-59) Alkaline Phosphatase 163 U/L (46-116) Total Protein 6.6 g/dL (6.4-8.2) Albumin 3.2 g/dL (3.4-5.0) Albumin/Globulin Ratio 0.9 (1.0-1.7) Random Gentamicin Level 0.4 mcg/mL Erythrocyte Sedimentation Rate 64 (0-25) Prothrombin Time 15.5 SEC (11.7-14.0) Prothromb Time International Ratio 1.3 (0.8-1.1) Lactic Acid Level 0.7 mmol/L (0.4-2.0) Urine Collection Type Clean catch Urine Color Yellow Urine Clarity Clear Urine pH 7.0 Urine Specific [place] 1.015 Urine Protein >=300 mg/dL (NEG-TRACE) Urine Glucose (UA) 100 mg/dL (NEG) Urine Ketones (Stick) Negative mg/dL (NEG) Urine Blood Small (NEG) Urine Nitrite Negative (NEG) Urine Bilirubin Negative (NEG) Urine Urobilinogen Dipstick 0.2 mg/dL (0.2 mg/dL) Urine Leukocyte Esterase Negative (NEG) Urine RBC 3-5 /HPF (0-2) Urine WBC 5-10 /HPF (0-4) Urine Squamous Epithelial Cells Many /LPF Urine Bacteria Many /HPF (0-FEW) Test 10/09/16 06:11 10/09/16 08:53 10/09/16 09:00 Glucose (Fingerstick) 163 mg/dL (70-99) 148 mg/dL (70-99) Random Gentamicin Level 5.0 mcg/mL Laboratory Tests Test 10/08/16 20:33 10/08/16 22:00 10/09/16 05:33 10/09/16 05:45 Glucose (Fingerstick) 135 mg/dL (70-99) White Blood Count 10.9 x10^3/uL (4.0-11.0) Red Blood Count 3.52 x10^6/uL (3.50-5.40) Hemoglobin 11.3 g/dL (12.0-15.5) Hematocrit 31.9 % (36.0-47.0) Mean Corpuscular Volume 91 fL (79-100) Mean Corpuscular Hemoglobin 32 pg (25-35) Mean Corpuscular Hemoglobin Concent 36 g/dL (31-37) Red Cell Distribution Width 13.8 % (11.5-14.5) Platelet Count 220 x10^3/uL (140-400) Neutrophils (%) (Auto) 81 % (31-73) Lymphocytes (%) (Auto) 9 % (24-48) Monocytes (%) (Auto) 8 % (0-9) Eosinophils (%) (Auto) 2 % (0-3) Basophils (%) (Auto) 1 % (0-3) Neutrophils # (Auto) 8.8 x10^3uL (1.8-7.7) Lymphocytes # (Auto) 0.9 x10^3/uL (1.0-4.8) Monocytes # (Auto) 0.8 x10^3/uL (0.0-1.1) Eosinophils # (Auto) 0.2 x10^3/uL (0.0-0.7) Basophils # (Auto) 0.1 x10^3/uL (0.0-0.2) Sodium Level 134 mmol/L (136-145) Potassium Level 4.0 mmol/L (3.5-5.1) Chloride Level 94 mmol/L (98-107) Carbon Dioxide Level 29 mmol/L (21-32) Anion Gap 11 (6-14) Blood Urea Nitrogen 50 mg/dL (7-20) Creatinine 5.5 mg/dL (0.6-1.0) Estimated GFR (Cockcroft-Gault) 8.2 BUN/Creatinine Ratio 9 (6-20) Glucose Level 153 mg/dL (70-99) Calcium Level 8.5 mg/dL (8.5-10.1) Total Bilirubin 0.4 mg/dL (0.2-1.0) Aspartate Amino Transf (AST/SGOT) 14 U/L (15-37) Alanine Aminotransferase (ALT/SGPT) 12 U/L (14-59) Alkaline Phosphatase 163 U/L (46-116) Total Protein 6.6 g/dL (6.4-8.2) Albumin 3.2 g/dL (3.4-5.0) Albumin/Globulin Ratio 0.9 (1.0-1.7) Random Gentamicin Level 0.4 mcg/mL Erythrocyte Sedimentation Rate 64 (0-25) Prothrombin Time 15.5 SEC (11.7-14.0) Prothromb Time International Ratio 1.3 (0.8-1.1) Lactic Acid Level 0.7 mmol/L (0.4-2.0) Urine Collection Type Clean catch Urine Color Yellow Urine Clarity Clear Urine pH 7.0 Urine Specific [place] 1.015 Urine Protein >=300 mg/dL (NEG-TRACE) Urine Glucose (UA) 100 mg/dL (NEG) Urine Ketones (Stick) Negative mg/dL (NEG) Urine Blood Small (NEG) Urine Nitrite Negative (NEG) Urine Bilirubin Negative (NEG) Urine Urobilinogen Dipstick 0.2 mg/dL (0.2 mg/dL) Urine Leukocyte Esterase Negative (NEG) Urine RBC 3-5 /HPF (0-2) Urine WBC 5-10 /HPF (0-4) Urine Squamous Epithelial Cells Many /LPF Urine Bacteria Many /HPF (0-FEW) Test 10/09/16 06:11 6/15/17 08:53 10/09/16 09:00 Glucose (Fingerstick) 163 mg/dL (70-99) 148 mg/dL (70-99) Random Gentamicin Level 5.0 mcg/mL Medications Current Medications Vancomycin HCl (Vanco Per Pharmacy) 1 each PRN DAILY PRN MC SEE COMMENTS Last administered on 10/08/16 22:03; Start 10/08/16 at 20:15 Gentamicin Sulfate 1 each PRN DAILY PRN MC SEE COMMENTS Last administered on 10:30; Start 10/08/16 at 20:15 Levofloxacin/ Dextrose 100 ml @ 100 mls/hr Q24H IV Last administered on 01:20; Start 10/08/16 at 21:00; Stop 10/09/16 at 08:36; Status DC Metronidazole 100 ml @ 100 mls/hr Q12HR IV Last administered on 10/09/16 03: 42; Start 10/08/16 at 21:00; Stop 10/09/16 at 08:36; Status DC Ondansetron HCl (Zofran) 4 mg PRN Q6HRS PRN IV NAUSEA/VOMITING Last administered on 10/09/16 08:52; Start 10/08/16 at 20:15 Acetaminophen (Tylenol) 650 mg PRN Q6HRS PRN PO FEVER; Start 10/08/16 at 20:15 Morphine Sulfate 2 mg PRN Q2HR PRN IV PAIN; Start 10/08/16 at 20:15; Stop 10/08 at 21:26; Status DC Acetaminophen/ Hydrocodone Bitart (Lortab 5/325) 1 tab PRN Q4HRS PRN PO PAIN; Start 10/08/16 at 20:15 Fentanyl Citrate (Fentanyl 2ml Vial) 50 mcg PRN Q2HR PRN IV PAIN Last administered on 10/09/16 11:38; Start 10/08/16 at 21:30 Aspirin (Anthony Aspirin) 325 mg DAILY PO ; Start 10/09/16 at 09:00 Carvedilol (Coreg) 12.5 mg BIDWMEALS PO ; Start 10/09/16 at 08:00 Docusate Sodium (Colace) 100 mg PRN BID PRN PO CONSTIPATION; Start 10/08/16 at 21:30 Fluconazole (Diflucan) 100 mg DAILY16 PO ; Start 10/09/16 at 16:00 Vitamin B Complex/ Vitamin C (Melly-Shabbir) 1 tab DAILY PO ; Start 10/09/16 at 09: 00 Furosemide (Lasix) 80 mg BID92 PO ; Start 10/09/16 at 09:00 Morphine Sulfate (Ms Contin) 15 mg BID PO ; Start 10/09/16 at 21:30; Stop at 21:30; Status DC Nitroglycerin (Nitrostat) 0.4 mg PRN Q5MIN PRN SL CHEST PAIN; Start 10/08/16 at 21:30 Oxycodone/ Acetaminophen (Percocet 10/325) 1 tab Q4HRS PO ; Start 10/09/16 at 00 :00 Sevelamer Carbonate (Renvela) 800 mg TIDWMEALS PO ; Start 10/09/16 at 08:00 Tramadol HCl (Ultram) 50 mg PRN Q6HRS PRN PO PAIN; Start 10/08/16 at 21:30 Atorvastatin Calcium (Lipitor) 80 mg QHS PO ; Start 10/09/16 at 21:00 Fenofibrate (Lofibra) 134 mg QHS PO Last administered on 10/09/16 00:12; Start 10/08/16 at 22:00 Niacin (Slo-Niacin) 500 mg QHS PO ; Start 10/09/16 at 21:00 Non-Formulary Medication 210 mg TIDWMEALS PO ; Start 10/09/16 at 08:00; Status UNV Diphenhydramine HCl (Benadryl) 25 mg PRN Q6HRS PRN IVP ITCHING Last administered on 10/08/16 22:51; Start 10/08/16 at 21:30 Diphenhydramine HCl (Benadryl) 25 mg TID PO ; Start 10/08/16 at 21:30; Status Cancel Heparin Sodium (Porcine) (Heparin Sq) 5,000 unit Q8HRS SQ Last administered on 10/09/16 05:57; Start 10/08/16 at 22:00 Vancomycin HCl 2 gm/Sodium Chloride 500 ml @ 250 mls/hr 1X ONCE IV Last administered on 10/09/16 00:09; Start 10/08/16 at 22:00; Stop 10/08/16 at 23:59 ; Status DC Morphine Sulfate (Ms Contin) 15 mg BID PO Last administered on 10/09/16 08:47 ; Start 10/08/16 at 22:00 Diphenhydramine HCl (Benadryl) 50 mg TID PO Last administered on 10/09/16 08: 47; Start 10/08/16 at 22:00 Gentamicin Sulfate 170 mg/ Sodium Chloride 104.25 ml @ 104.25 mls/hr 1X ONCE IV ; Start 10/08/16 at 22:00; Stop 10/08/16 at 22:59; Status Cancel Gentamicin Sulfate 145 mg/ Sodium Chloride 103.625 ml @ 103.625 mls/hr 1X ONCE IV Last administered on 10/08/16 22:51; Start 10/08/16 at 23:00; Stop at 23:59; Status DC Gentamicin Sulfate 1 each 1X ONCE MC Last administered on 10/09/16 09:00; Start 10/09/16 at 09:00; Stop 10/09/16 at 09:01; Status DC Vancomycin HCl 1 each 1X ONCE MC ; Start 10/11/16 at 00:00; Stop 10/11/16 at 00 :01 Diphenhydramine HCl (Benadryl) 50 mg 1X ONCE PO Last administered on 03:55; Start 10/09/16 at 04:00; Stop 10/09/16 at 04:01; Status DC Levofloxacin/ Dextrose 100 ml @ 100 mls/hr Q48H IV ; Start 10/10/16 at 21:00 Metronidazole 100 ml @ 100 mls/hr Q8HRS IV ; Start 10/09/16 at 14:00 Insulin Aspart (NovoLOG) 0-9 UNITS TIDWMEALS SQ ; Start 10/09/16 at 12:00 Dextrose (Dextrose 50%-Water Syringe) 12.5 gm PRN Q15MIN PRN IV SEE COMMENTS; Start 10/09/16 at 09:30 Sodium Chloride 1,000 ml @ 1,000 mls/hr Q1H PRN IV hypotension; Start 10/09/16 at 11:48; Stop 10/09/16 at 17:47 Albumin Human 200 ml @ 200 mls/hr 1X PRN PRN IV Hypotension; Start 10/09/16 at 12:00; Stop 10/09/16 at 17:59 Diphenhydramine HCl (Benadryl) 25 mg 1X PRN PRN IV ITCHING; Start 10/09/16 at 12:00; Stop 10/10/16 at 11:59 Diphenhydramine HCl (Benadryl) 25 mg 1X PRN PRN IV ITCHING; Start 10/09/16 at 12:00; Stop 10/10/16 at 11:59 Sodium Chloride 1,000 ml @ 400 mls/hr Q2H30M PRN IV PATENCY; Start 10/09/16 at 11:48; Stop 10/09/16 at 23:47 Info (PHARMACY MONITORING -- do not chart) 1 each PRN DAILY PRN MC SEE COMMENTS ; Start 10/09/16 at 12:00 Lidocaine HCl (Xylocaine-Mpf 1% Vial) 0.5 ml 1X STAT ID ; Start 10/09/16 at 12: 06; Stop 10/09/16 at 12:14; Status DC Active Scripts Active Percocet 10-325 Mg Tablet (Oxycodone/Acetaminophen) 1 Each Tablet 1 Tab PO Q4HRS Fluconazole 100 Mg Tablet 100 Mg PO DAILY16 Renvela (Sevelamer Carbonate) 800 Mg Tablet 800 Mg PO TIDWMEALS Morphine Sulfate Er (Morphine Sulfate) 15 Mg Tablet.er 15 Mg PO BID Reported Zofran (Ondansetron Hcl) 4 Mg Tablet 4 Mg PO Q6-8HRS PRN Lantus Solostar (Insulin Glargine,Hum.rec.anlog) 100 Unit/1 Ml Insuln.pen 10 Unit SQ QHS [auryxia] 210 Mg PO TIDWMEALS Carvedilol 12.5 Mg Tablet 1 Tab PO DAILY Carvedilol 12.5 Mg Tablet 1 Tab PO BID Nephro-Shabbir Tablet (Folic Acid/Vitamin B Comp W-C) 0.8 Mg Tablet 1 Tab PO DAILY Fluconazole 100 Mg Tablet 150 Mg PO PRN PRN Tramadol Hcl 50 Mg Tablet 50 Mg PO Q6H PRN Tricor (Fenofibrate Nanocrystallized) 145 Mg Tablet 1 Tab PO HS Lipitor (Atorvastatin Calcium) 80 Mg Tablet 80 Mg PO HS Niacin 500 Mg Tablet 500 Mg PO HS Novolog (Insulin Aspart) 100 Unit/1 Ml Cartridge 0 SQ TIDAC sliding scale Aspirin 325 Mg Tablet 325 Mg PO DAILY Furosemide 80 Mg Tablet 80 Mg PO BID Docusate Sodium 100 Mg Capsule 1 Cap PO PRN PRN Nitrostat (Nitroglycerin) 0.4 Mg Tab.subl 0.4 Mg SL PRN Q5MIN PRN Take as needed for chest pain Vitals/I & O Vital Sign - Last 24 Hours 10/08/16 10/08/16 10/08/16 10/08/16 19:45 20:00 22:39 23:00 Temp 98.6 98.4 98.6 98.4 Pulse 106 94 Resp 18 16 18 B/P (MAP) 142/65 (90) 156/76 (102) Pulse Ox 94 93 O2 Delivery Room Air Room Air Room Air Room Air 10/09/16 10/09/16 10/09/16 10/09/16 00:12 01:58 03:00 03:52 Temp 98.6 98.6 Pulse 97 Resp 16 16 18 16 B/P (MAP) 151/79 (103) Pulse Ox 96 O2 Delivery Room Air Room Air Room Air Room Air 10/09/16 10/09/16 10/09/16 10/09/16 03:55 05:55 06:25 07:00 Temp 97.9 97.9 Pulse 90 Resp 16 16 16 20 B/P (MAP) 150/73 (98) Pulse Ox 98 O2 Delivery Room Air Room Air Room Air Room Air 10/09/16 11:00 Temp 97.9 97.9 Pulse 90 Resp 20 B/P (MAP) 137/70 (92) Pulse Ox 94 O2 Delivery Room Air Intake and Output 10/08/16 10/08/16 10/09/16 15:00 23:00 07:00 Intake Total 900 ml Output Total 0 ml 450 ml Balance 900 ml -450 ml QUIN BARRY MD Oct 09, 2016 12:37
--- NOTE | 2016-10-09 12:46 | PDOC2 ---
CONSULT Date of Consult Date of Consult DATE: 10/09/16 TIME: 12:28 Reason for Consult Reason for Consult: Arterial insufficiency with right 1st toe osteomyelitis Referring Physician Referring Physician: Dr. Mcbride Identification/Chief Complaint Chief Complaint Right first toe pain and redness Source Source: Patient History of Present Illness Reason for Visit: Ms. Rosenbaum is a 51 y/o female HTN, CAD (s/p CABG), HLD, COPD, ESRD (on HD), right arm fistula (w/ revisions), L BKA that was admitted for osteomyelitis of the right 1st toe. She states that she had the left 1st toe debrided by Dr. Jolley in July, and has been followed by the wound care clinic. She has been on IV antibiotics, and most recently was on Ancef. The right 1st toe has had increased redness and pain over the past couple of days. She has been trying to avoid an amputation to help her with walking since she has a left BKA. She has been on hemodialysis via a right arm AV fistula, this has required revisions by the vascular surgery group but she has not been seen in the past year. She does not complain of claudication or rest pain to the right leg. She has not had any recent arterial imaging prior to this hospitalization. Past Medical History Cardiovascular: CAD, CHF, HTN, AR, Hyperlipidemia Pulmonary: Asthma, COPD, Pneumonia CENTRAL NERVOUS SYSTEM: Other GI: GERD Heme/Onc: Anemia NOS Hepatobiliary: No pertinent hx Psych: No pertinent hx Rheumatologic: Fibromyalgia Infectious disease: Other Renal/: Chronic renal failure Endocrine: Diabetes, Hyperparathyroidism Past Surgical History Past Surgical History: CABG, Hysterectomy, Other (Left BKA) Family History Family History: Diabetes, Hypertension Social History No ALCOHOL: none Drugs: None Lives: with Family Current Medications Current Medications Current Medications Vancomycin HCl (Vanco Per Pharmacy) 1 each PRN DAILY PRN MC SEE COMMENTS Last administered on 10/08/16 22:03; Start 10/08/16 at 20:15 Gentamicin Sulfate 1 each PRN DAILY PRN MC SEE COMMENTS Last administered on 10:30; Start 10/08/16 at 20:15 Levofloxacin/ Dextrose 100 ml @ 100 mls/hr Q24H IV Last administered on 01:20; Start 10/08/16 at 21:00; Stop 10/09/16 at 08:36; Status DC Metronidazole 100 ml @ 100 mls/hr Q12HR IV Last administered on 10/09/16 03: 42; Start 10/08/16 at 21:00; Stop 10/09/16 at 08:36; Status DC Ondansetron HCl (Zofran) 4 mg PRN Q6HRS PRN IV NAUSEA/VOMITING Last administered on 10/09/16 08:52; Start 10/08/16 at 20:15 Acetaminophen (Tylenol) 650 mg PRN Q6HRS PRN PO FEVER; Start 10/08/16 at 20:15 Morphine Sulfate 2 mg PRN Q2HR PRN IV PAIN; Start 10/08/16 at 20:15; Stop 10/08 at 21:26; Status DC Acetaminophen/ Hydrocodone Bitart (Lortab 5/325) 1 tab PRN Q4HRS PRN PO PAIN; Start 10/08/16 at 20:15 Fentanyl Citrate (Fentanyl 2ml Vial) 50 mcg PRN Q2HR PRN IV PAIN Last administered on 10/09/16 11:38; Start 10/08/16 at 21:30 Aspirin (Autobook Now Aspirin) 325 mg DAILY PO ; Start 10/09/16 at 09:00 Carvedilol (Coreg) 12.5 mg BIDWMEALS PO ; Start 10/09/16 at 08:00 Docusate Sodium (Colace) 100 mg PRN BID PRN PO CONSTIPATION; Start 10/08/16 at 21:30 Fluconazole (Diflucan) 100 mg DAILY16 PO ; Start 10/09/16 at 16:00 Vitamin B Complex/ Vitamin C (Melly-Shabbir) 1 tab DAILY PO ; Start 10/09/16 at 09: 00 Furosemide (Lasix) 80 mg BID92 PO ; Start 10/09/16 at 09:00 Morphine Sulfate (Ms Contin) 15 mg BID PO ; Start 10/09/16 at 21:30; Stop at 21:30; Status DC Nitroglycerin (Nitrostat) 0.4 mg PRN Q5MIN PRN SL CHEST PAIN; Start 10/08/16 at 21:30 Oxycodone/ Acetaminophen (Percocet 10/325) 1 tab Q4HRS PO ; Start 10/09/16 at 00 :00 Sevelamer Carbonate (Renvela) 800 mg TIDWMEALS PO ; Start 10/09/16 at 08:00 Tramadol HCl (Ultram) 50 mg PRN Q6HRS PRN PO PAIN; Start 10/08/16 at 21:30 Atorvastatin Calcium (Lipitor) 80 mg QHS PO ; Start 10/09/16 at 21:00 Fenofibrate (Lofibra) 134 mg QHS PO Last administered on 10/09/16 00:12; Start 10/08/16 at 22:00 Niacin (Slo-Niacin) 500 mg QHS PO ; Start 10/09/16 at 21:00 Non-Formulary Medication 210 mg TIDWMEALS PO ; Start 10/09/16 at 08:00; Status UNV Diphenhydramine HCl (Benadryl) 25 mg PRN Q6HRS PRN IVP ITCHING Last administered on 10/08/16 22:51; Start 10/08/16 at 21:30 Diphenhydramine HCl (Benadryl) 25 mg TID PO ; Start 10/08/16 at 21:30; Status Cancel Heparin Sodium (Porcine) (Heparin Sq) 5,000 unit Q8HRS SQ Last administered on 10/09/16 05:57; Start 10/08/16 at 22:00 Vancomycin HCl 2 gm/Sodium Chloride 500 ml @ 250 mls/hr 1X ONCE IV Last administered on 10/09/16 00:09; Start 10/08/16 at 22:00; Stop 10/08/16 at 23:59 ; Status DC Morphine Sulfate (Ms Contin) 15 mg BID PO Last administered on 10/09/16 08:47 ; Start 10/08/16 at 22:00 Diphenhydramine HCl (Benadryl) 50 mg TID PO Last administered on 10/09/16 08: 47; Start 10/08/16 at 22:00 Gentamicin Sulfate 170 mg/ Sodium Chloride 104.25 ml @ 104.25 mls/hr 1X ONCE IV ; Start 10/08/16 at 22:00; Stop 10/08/16 at 22:59; Status Cancel Gentamicin Sulfate 145 mg/ Sodium Chloride 103.625 ml @ 103.625 mls/hr 1X ONCE IV Last administered on 10/08/16 22:51; Start 10/08/16 at 23:00; Stop at 23:59; Status DC Gentamicin Sulfate 1 each 1X ONCE MC Last administered on 10/09/16t 09:00; Start 10/09/16 at 09:00; Stop 10/09/16 at 09:01; Status DC Vancomycin HCl 1 each 1X ONCE MC ; Start 10/11/16 at 00:00; Stop 10/11/16 at 00 :01 Diphenhydramine HCl (Benadryl) 50 mg 1X ONCE PO Last administered on t 03:55; Start 10/09/16 at 04:00; Stop 10/09/16 at 04:01; Status DC Levofloxacin/ Dextrose 100 ml @ 100 mls/hr Q48H IV ; Start 10/10/16 at 21:00 Metronidazole 100 ml @ 100 mls/hr Q8HRS IV ; Start 10/09/16 at 14:00 Insulin Aspart (NovoLOG) 0-9 UNITS TIDWMEALS SQ ; Start 10/09/16 at 12:00 Dextrose (Dextrose 50%-Water Syringe) 12.5 gm PRN Q15MIN PRN IV SEE COMMENTS; Start 10/09/16 at 09:30 Sodium Chloride 1,000 ml @ 1,000 mls/hr Q1H PRN IV hypotension; Start 10/09/16 at 11:48; Stop 10/09/16 at 17:47 Albumin Human 200 ml @ 200 mls/hr 1X PRN PRN IV Hypotension; Start 10/09/16 at 12:00; Stop 10/09/16 at 17:59 Diphenhydramine HCl (Benadryl) 25 mg 1X PRN PRN IV ITCHING; Start 10/09/16 at 12:00; Stop 10/10/16 at 11:59 Diphenhydramine HCl (Benadryl) 25 mg 1X PRN PRN IV ITCHING; Start 10/09/16 at 12:00; Stop 10/10/16 at 11:59 Sodium Chloride 1,000 ml @ 400 mls/hr Q2H30M PRN IV PATENCY; Start 10/09/16 at 11:48; Stop 10/09/16 at 23:47 Info (PHARMACY MONITORING -- do not chart) 1 each PRN DAILY PRN MC SEE COMMENTS ; Start 10/09/16 at 12:00 Lidocaine HCl (Xylocaine-Mpf 1% Vial) 0.5 ml 1X STAT ID ; Start 10/09/16 at 12: 06; Stop 10/09/16 at 12:14; Status DC Active Scripts Active Percocet 10-325 Mg Tablet (Oxycodone/Acetaminophen) 1 Each Tablet 1 Tab PO Q4HRS Fluconazole 100 Mg Tablet 100 Mg PO DAILY16 Renvela (Sevelamer Carbonate) 800 Mg Tablet 800 Mg PO TIDWMEALS Morphine Sulfate Er (Morphine Sulfate) 15 Mg Tablet.er 15 Mg PO BID Reported Zofran (Ondansetron Hcl) 4 Mg Tablet 4 Mg PO Q6-8HRS PRN Lantus Solostar (Insulin Glargine,Hum.rec.anlog) 100 Unit/1 Ml Insuln.pen 10 Unit SQ QHS [auryxia] 210 Mg PO TIDWMEALS Carvedilol 12.5 Mg Tablet 1 Tab PO DAILY Carvedilol 12.5 Mg Tablet 1 Tab PO BID Nephro-Shabbir Tablet (Folic Acid/Vitamin B Comp W-C) 0.8 Mg Tablet 1 Tab PO DAILY Fluconazole 100 Mg Tablet 150 Mg PO PRN PRN Tramadol Hcl 50 Mg Tablet 50 Mg PO Q6H PRN Tricor (Fenofibrate Nanocrystallized) 145 Mg Tablet 1 Tab PO HS Lipitor (Atorvastatin Calcium) 80 Mg Tablet 80 Mg PO HS Niacin 500 Mg Tablet 500 Mg PO HS Novolog (Insulin Aspart) 100 Unit/1 Ml Cartridge 0 SQ TIDAC sliding scale Aspirin 325 Mg Tablet 325 Mg PO DAILY Furosemide 80 Mg Tablet 80 Mg PO BID Docusate Sodium 100 Mg Capsule 1 Cap PO PRN PRN Nitrostat (Nitroglycerin) 0.4 Mg Tab.subl 0.4 Mg SL PRN Q5MIN PRN Take as needed for chest pain Allergies Allergies: Coded Allergies: Sulfa (Sulfonamide Antibiotics) (Verified Allergy, Intermediate, 08/16/16) meropenem (Verified Allergy, Intermediate, 08/16/16) Tolerates ancef piperacillin (Verified Allergy, Intermediate, Rash, 08/16/16) Tolerates ancef strawberry (Verified Allergy, Intermediate, 08/16/16) tazobactam (Verified Allergy, Intermediate, 08/16/16) Physical Exam General: Alert, Oriented X3 HEENT: Atraumatic, PERRLA, EOMI Lungs: Clear to auscultation, Normal air movement Heart: Regular rate, Normal S1, Normal S2 Abdomen: Normal bowel sounds, Soft, No tenderness Extremities: No edema, Other (palpable bilateral femoral arteries, no palpable popliteal on the right or palpable pedal pulses on the right) Skin: Other (erythema around the right 1st toe, no purulent drainage) Neuro: Strength at 5/5 X4 ext, Sensation intact Psych/Mental Status: Mental status NL Vitals VITALS Vital Signs Date Time Temp Pulse Resp B/P (MAP) Pulse Ox O2 Delivery O2 Flow Rate FiO2 10/09/16 11:00 97.9 90 20 137/70 (92) 94 Room Air 97.9 Labs Labs Laboratory Tests Test 10/08/16 20:33 10/08/16 22:00 10/09/16 05:33 10/09/16 05:45 Glucose (Fingerstick) 135 mg/dL (70-99) White Blood Count 10.9 x10^3/uL (4.0-11.0) Red Blood Count 3.52 x10^6/uL (3.50-5.40) Hemoglobin 11.3 g/dL (12.0-15.5) Hematocrit 31.9 % (36.0-47.0) Mean Corpuscular Volume 91 fL (79-100) Mean Corpuscular Hemoglobin 32 pg (25-35) Mean Corpuscular Hemoglobin Concent 36 g/dL (31-37) Red Cell Distribution Width 13.8 % (11.5-14.5) Platelet Count 220 x10^3/uL (140-400) Neutrophils (%) (Auto) 81 % (31-73) Lymphocytes (%) (Auto) 9 % (24-48) Monocytes (%) (Auto) 8 % (0-9) Eosinophils (%) (Auto) 2 % (0-3) Basophils (%) (Auto) 1 % (0-3) Neutrophils # (Auto) 8.8 x10^3uL (1.8-7.7) Lymphocytes # (Auto) 0.9 x10^3/uL (1.0-4.8) Monocytes # (Auto) 0.8 x10^3/uL (0.0-1.1) Eosinophils # (Auto) 0.2 x10^3/uL (0.0-0.7) Basophils # (Auto) 0.1 x10^3/uL (0.0-0.2) Sodium Level 134 mmol/L (136-145) Potassium Level 4.0 mmol/L (3.5-5.1) Chloride Level 94 mmol/L (98-107) Carbon Dioxide Level 29 mmol/L (21-32) Anion Gap 11 (6-14) Blood Urea Nitrogen 50 mg/dL (7-20) Creatinine 5.5 mg/dL (0.6-1.0) Estimated GFR (Cockcroft-Gault) 8.2 BUN/Creatinine Ratio 9 (6-20) Glucose Level 153 mg/dL (70-99) Calcium Level 8.5 mg/dL (8.5-10.1) Total Bilirubin 0.4 mg/dL (0.2-1.0) Aspartate Amino Transf (AST/SGOT) 14 U/L (15-37) Alanine Aminotransferase (ALT/SGPT) 12 U/L (14-59) Alkaline Phosphatase 163 U/L (46-116) Total Protein 6.6 g/dL (6.4-8.2) Albumin 3.2 g/dL (3.4-5.0) Albumin/Globulin Ratio 0.9 (1.0-1.7) Random Gentamicin Level 0.4 mcg/mL Erythrocyte Sedimentation Rate 64 (0-25) Prothrombin Time 15.5 SEC (11.7-14.0) Prothromb Time International Ratio 1.3 (0.8-1.1) Lactic Acid Level 0.7 mmol/L (0.4-2.0) Urine Collection Type Clean catch Urine Color Yellow Urine Clarity Clear Urine pH 7.0 Urine Specific [place] 1.015 Urine Protein >=300 mg/dL (NEG-TRACE) Urine Glucose (UA) 100 mg/dL (NEG) Urine Ketones (Stick) Negative mg/dL (NEG) Urine Blood Small (NEG) Urine Nitrite Negative (NEG) Urine Bilirubin Negative (NEG) Urine Urobilinogen Dipstick 0.2 mg/dL (0.2 mg/dL) Urine Leukocyte Esterase Negative (NEG) Urine RBC 3-5 /HPF (0-2) Urine WBC 5-10 /HPF (0-4) Urine Squamous Epithelial Cells Many /LPF Urine Bacteria Many /HPF (0-FEW) Test 10/09/16 06:11 10/09/16 08:53 10/09/16 09:00 Glucose (Fingerstick) 163 mg/dL (70-99) 148 mg/dL (70-99) Random Gentamicin Level 5.0 mcg/mL Laboratory Tests Test 10/08/16 20:33 10/08/16 22:00 10/09/16 05:33 10/09/16 05:45 Glucose (Fingerstick) 135 mg/dL (70-99) White Blood Count 10.9 x10^3/uL (4.0-11.0) Red Blood Count 3.52 x10^6/uL (3.50-5.40) Hemoglobin 11.3 g/dL (12.0-15.5) Hematocrit 31.9 % (36.0-47.0) Mean Corpuscular Volume 91 fL (79-100) Mean Corpuscular Hemoglobin 32 pg (25-35) Mean Corpuscular Hemoglobin Concent 36 g/dL (31-37) Red Cell Distribution Width 13.8 % (11.5-14.5) Platelet Count 220 x10^3/uL (140-400) Neutrophils (%) (Auto) 81 % (31-73) Lymphocytes (%) (Auto) 9 % (24-48) Monocytes (%) (Auto) 8 % (0-9) Eosinophils (%) (Auto) 2 % (0-3) Basophils (%) (Auto) 1 % (0-3) Neutrophils # (Auto) 8.8 x10^3uL (1.8-7.7) Lymphocytes # (Auto) 0.9 x10^3/uL (1.0-4.8) Monocytes # (Auto) 0.8 x10^3/uL (0.0-1.1) Eosinophils # (Auto) 0.2 x10^3/uL (0.0-0.7) Basophils # (Auto) 0.1 x10^3/uL (0.0-0.2) Sodium Level 134 mmol/L (136-145) Potassium Level 4.0 mmol/L (3.5-5.1) Chloride Level 94 mmol/L (98-107) Carbon Dioxide Level 29 mmol/L (21-32) Anion Gap 11 (6-14) Blood Urea Nitrogen 50 mg/dL (7-20) Creatinine 5.5 mg/dL (0.6-1.0) Estimated GFR (Cockcroft-Gault) 8.2 BUN/Creatinine Ratio 9 (6-20) Glucose Level 153 mg/dL (70-99) Calcium Level 8.5 mg/dL (8.5-10.1) Total Bilirubin 0.4 mg/dL (0.2-1.0) Aspartate Amino Transf (AST/SGOT) 14 U/L (15-37) Alanine Aminotransferase (ALT/SGPT) 12 U/L (14-59) Alkaline Phosphatase 163 U/L (46-116) Total Protein 6.6 g/dL (6.4-8.2) Albumin 3.2 g/dL (3.4-5.0) Albumin/Globulin Ratio 0.9 (1.0-1.7) Random Gentamicin Level 0.4 mcg/mL Erythrocyte Sedimentation Rate 64 (0-25) Prothrombin Time 15.5 SEC (11.7-14.0) Prothromb Time International Ratio 1.3 (0.8-1.1) Lactic Acid Level 0.7 mmol/L (0.4-2.0) Urine Collection Type Clean catch Urine Color Yellow Urine Clarity Clear Urine pH 7.0 Urine Specific [place] 1.015 Urine Protein >=300 mg/dL (NEG-TRACE) Urine Glucose (UA) 100 mg/dL (NEG) Urine Ketones (Stick) Negative mg/dL (NEG) Urine Blood Small (NEG) Urine Nitrite Negative (NEG) Urine Bilirubin Negative (NEG) Urine Urobilinogen Dipstick 0.2 mg/dL (0.2 mg/dL) Urine Leukocyte Esterase Negative (NEG) Urine RBC 3-5 /HPF (0-2) Urine WBC 5-10 /HPF (0-4) Urine Squamous Epithelial Cells Many /LPF Urine Bacteria Many /HPF (0-FEW) Test 10/09/16 06:11 10/09/16 08:53 10/09/16 09:00 Glucose (Fingerstick) 163 mg/dL (70-99) 148 mg/dL (70-99) Random Gentamicin Level 5.0 mcg/mL Images Images Lower extremity arterial ultrasound 10/08/16: IMPRESSION: 1. Moderate generalized calcific plaquing. 2. Monophasic common femoral Doppler waveform suggesting aortoiliac inflow disease. 3. Gradual degradation of the distal Doppler waveforms without evidence of high-grade focal femoral-popliteal stenosis. Right foot x-ray: Suggestive of osteomyelitis of the right distal 1st toe Assessment/Plan Assessment/Plan Assessment: 1. Osteomyelitis right 1st toe 2. PAD 3. ESRD on HD 4. HTN Plan: The ultrasound was reviewed, and demonstrated monophasic signal from the femoral to the tibial vessels. There was no hemodynamically significant stenosis, although overall low flow with monophasic signals is suggestive of aortoiliac disease. She had an x-ray of the right foot that was suggestive of right 1st toe osteomyelitis. She would like to continue IV antibiotics, ID consulted and on Vanc/Gent/Levo. Recommend to consult Dr. Jolley to evaluate for debridement or amputation of the toe, since he has been following her for the toe wound. She will continue to get local wound care. She will remain on hemodialysis. Recommend NPO for an angiogram tomorrow morning to further evaluate her aortoiliac disease. ANITHA ROUSSEAU MD Oct 09, 2016 12:45
[2016-10-09 16:30] VITALS: BP 130/64
[2016-10-09] MEDS: FLUCONAZOLE 100 MG TABLET. PO SCH (16:46)
--- NOTE | 2016-10-09 17:10 | ACF ---
Admission Forms Criteria OSTEOMYELITIS Clinical Indications for Admission to Inpatient Care (Place 'X' for any and all applicable criteria) Admission is indicated by 1 or more of the following (1)(2)(3)(4)(5)(6): [ ] I. Significant systemic illness indicated by 2 or more of the following: [ ]a) Core (eg rectal) temperature greater or equal [id number](37.8C) in an adult [ ]b) Oral temperature[A] greater than or equal to 99.3 degrees F ( 37.4 degrees C) in an adult [ ]c) Heart rate greater than 90 beats per minute [ ]d) Respiratory rate greater than 20 breaths per minute or PaCO2 less than 32 mm Hg (4.3 kPa) [ ]e) White blood cell count > 12,000/mm3 (12 x109/L) or < 4000/mm3 ( 4 x109/L) or > 10% band cells [ ] II. Hemodynamic instability [ ] III. Severe pain requiring acute inpatient management [ ] IV. Bacteremia [ ] V. Altered Mental status that is severe or persistent [ ] . Limb-threatening infection [ ] VII. Suspected necrotizing soft tissue infection (e.g., gas in tissue) [ ] VIII.Surgical intervention required (e.g., bone or soft tissue debridement, removal of foreign body, or revascularization procedure) not performable in outpatient or emergency department level of care(7) [X ] IX. Appropriate monitoring and therapy (IV antibiotics) cannot be immediately arranged for home or outpatient setting [ ] X. Failure of outpatient treatment [ ] XI. High-risk comorbid condition present including 1 or more of the following: [ ]a) Poorly controlled diabetes (e.g., HbA1c greater than 10% (0.1)) [ ]b) Vascular insufficiency to affected area [ ]c) Cirrhosis [ ]d) Neutropenia [ ]e) Asplenia [ ]f) Immunosuppression (e.g., chronic systemic corticosteroid use) [ ]g) Symptomatic heart failure [ ] XII. Joint involvement (e.g., septic arthritis) suspected [ ] XIII.Vertebral osteomyelitis [ ] XIV. Skull-base osteomyelitis (e.g.,"malignant external otitis")[A](8)(9)(10 ) Extended stay beyond goal length of stay may be needed for(1)(3)(4)(5)(24)(25): [ ]a) Inadequate clinical response to antibiotics (e.g., continued fever, hypotension) [ ]b) Bacteremia [ ]c) Surgical intervention needed (e.g., beyond superficial debridement)(26) [ ]d) Vertebral osteomyelitis with spinal cord compression, abscess formation, or mechanical instability [ ]e) Antibiotic-resistant organism identified (e.g., methicillin-resistant Staphylococcal aureus) [ ]f) Severe concomitant cellulitis [ ]g) Acute metabolic disorder [ ]h) Unstable comorbidities (e.g., heart failure, renal insufficiency, immunosuppressed state)(28) [ ]i) Clinically significant malnutrition [ ]j) Acute renal failure The original [facility] [employer] content created by [employer] [facility] [employer] has been revised. The portions of the content which have been revised are identified through the use of italic text or in bold, and [facility] has neither reviewed nor approved the modified material. All other unmodified content is copyright [facility].Edition 2016. Admission Criteria Met?: Yes CESARIO LÓPEZ Oct 09, 2016 17:10
[2016-10-09 19:00] VITALS: BP 98/47
[2016-10-09] MEDS ORDERED: INSULIN DETEMIR 300 UNITS/3 ML INSULN.PEN. SQ SCH (21:30)
[2016-10-09] MEDS ORDERED: MORPHINE ER 15 MG TABLET.ER PO SCH (21:30)
[2016-10-09] MEDS: ATORVASTATIN CALCIUM 40 MG TABLET. PO SCH (22:19)
[2016-10-09] MEDS: NIACIN ER 500 MG TABLET.ER PO SCH (22:20)
[2016-10-09] MEDS: diphenhydrAMINE 50 MG/ML VIAL IVP PRN (22:21)
[2016-10-09 23:00] VITALS: BP 111/56
[2016-10-09] MEDS: MORPHINE SULFATE 4 MG/ML DISP.SYRIN. IV PRN (23:05)
[2016-10-10] VITALS (14 sets, daily range): BP systolic 92–144; BP diastolic 47–66
[2016-10-10] MEDS: MORPHINE SULFATE 4 MG/ML DISP.SYRIN. IV PRN ×3 (03:17→21:13)
[2016-10-10] MEDS: oxyCODONE/APAP 10/325 1 TAB TABLET PO SCH ×6 (04:00→21:13)
[2016-10-10] MEDS: HEPARIN PF for SUB-Q USE 5,000 UNIT/0.5 ML VIAL. SQ SCH ×3 (06:00→22:00)
[2016-10-10] MEDS: ONDANSETRON PF 4 MG/2 ML VIAL. IV PRN ×2 (06:26→22:01)
[2016-10-10] MEDS ORDERED: INSULIN ASPART 300 UNITS/3 ML INSULN.PEN SQ SCH (07:30)
[2016-10-10] MEDS: INSULIN ASPART 300 UNITS/3 ML INSULN.PEN SQ SCH ×4 (07:30→21:00)
[2016-10-10] MEDS: CARVEDILOL 12.5 MG TABLET. PO SCH ×2 (08:00→17:00)
[2016-10-10] MEDS: SEVELAMER CARBONATE 800 MG TABLET. PO SCH ×3 (08:00→17:00)
--- NOTE | 2016-10-10 08:03 | PDOC ---
ORTHO PROGRESS NOTES Vitals Vital Signs Date Time Temp Pulse Resp B/P (MAP) Pulse Ox O2 Delivery O2 Flow Rate FiO2 10/10/16 06:19 90 Room Air 10/10/16 03:00 97.7 74 18 115/63 (80) 97.7 Labs Laboratory Tests Test 10/08/16 20:33 10/08/16 22:00 10/09/16 05:33 10/09/16 05:45 Glucose (Fingerstick) 135 mg/dL (70-99) White Blood Count 10.9 x10^3/uL (4.0-11.0) Red Blood Count 3.52 x10^6/uL (3.50-5.40) Hemoglobin 11.3 g/dL (12.0-15.5) Hematocrit 31.9 % (36.0-47.0) Mean Corpuscular Volume 91 fL (79-100) Mean Corpuscular Hemoglobin 32 pg (25-35) Mean Corpuscular Hemoglobin Concent 36 g/dL (31-37) Red Cell Distribution Width 13.8 % (11.5-14.5) Platelet Count 220 x10^3/uL (140-400) Neutrophils (%) (Auto) 81 % (31-73) Lymphocytes (%) (Auto) 9 % (24-48) Monocytes (%) (Auto) 8 % (0-9) Eosinophils (%) (Auto) 2 % (0-3) Basophils (%) (Auto) 1 % (0-3) Neutrophils # (Auto) 8.8 x10^3uL (1.8-7.7) Lymphocytes # (Auto) 0.9 x10^3/uL (1.0-4.8) Monocytes # (Auto) 0.8 x10^3/uL (0.0-1.1) Eosinophils # (Auto) 0.2 x10^3/uL (0.0-0.7) Basophils # (Auto) 0.1 x10^3/uL (0.0-0.2) Sodium Level 134 mmol/L (136-145) Potassium Level 4.0 mmol/L (3.5-5.1) Chloride Level 94 mmol/L (98-107) Carbon Dioxide Level 29 mmol/L (21-32) Anion Gap 11 (6-14) Blood Urea Nitrogen 50 mg/dL (7-20) Creatinine 5.5 mg/dL (0.6-1.0) Estimated GFR (Cockcroft-Gault) 8.2 BUN/Creatinine Ratio 9 (6-20) Glucose Level 153 mg/dL (70-99) Calcium Level 8.5 mg/dL (8.5-10.1) Total Bilirubin 0.4 mg/dL (0.2-1.0) Aspartate Amino Transf (AST/SGOT) 14 U/L (15-37) Alanine Aminotransferase (ALT/SGPT) 12 U/L (14-59) Alkaline Phosphatase 163 U/L (46-116) Total Protein 6.6 g/dL (6.4-8.2) Albumin 3.2 g/dL (3.4-5.0) Albumin/Globulin Ratio 0.9 (1.0-1.7) Random Gentamicin Level 0.4 mcg/mL Erythrocyte Sedimentation Rate 64 (0-25) Prothrombin Time 15.5 SEC (11.7-14.0) Prothromb Time International Ratio 1.3 (0.8-1.1) Lactic Acid Level 0.7 mmol/L (0.4-2.0) Urine Collection Type Clean catch Urine Color Yellow Urine Clarity Clear Urine pH 7.0 Urine Specific [place] 1.015 Urine Protein >=300 mg/dL (NEG-TRACE) Urine Glucose (UA) 100 mg/dL (NEG) Urine Ketones (Stick) Negative mg/dL (NEG) Urine Blood Small (NEG) Urine Nitrite Negative (NEG) Urine Bilirubin Negative (NEG) Urine Urobilinogen Dipstick 0.2 mg/dL (0.2 mg/dL) Urine Leukocyte Esterase Negative (NEG) Urine RBC 3-5 /HPF (0-2) Urine WBC 5-10 /HPF (0-4) Urine Squamous Epithelial Cells Many /LPF Urine Bacteria Many /HPF (0-FEW) Test 10/09/16 06:11 10/09/16 07:00 10/09/16 08:53 10/09/16 09:00 Glucose (Fingerstick) 163 mg/dL (70-99) 148 mg/dL (70-99) Nasal Screen MRSA (PCR) Negative (Negative) Clostridium difficile Toxin (PCR) Negative (Negative) Random Gentamicin Level 5.0 mcg/mL Test 10/09/16 11:07 10/09/16 16:26 10/09/16 20:32 10/09/16 23:15 Glucose (Fingerstick) 159 mg/dL (70-99) 147 mg/dL (70-99) 269 mg/dL (70-99) 271 mg/dL (70-99) Test 10/10/16 07:36 Glucose (Fingerstick) 121 mg/dL (70-99) Laboratory Tests Test 10/09/16 08:53 10/09/16 09:00 10/09/16 11:07 10/09/16 16:26 Glucose (Fingerstick) 148 mg/dL (70-99) 159 mg/dL (70-99) 147 mg/dL (70-99) Random Gentamicin Level 5.0 mcg/mL Test 10/09/16 20:32 10/09/16 23:15 10/10/16 07:36 Glucose (Fingerstick) 269 mg/dL (70-99) 271 mg/dL (70-99) 121 mg/dL (70-99) Assessment and Plan please see full note OR for partial amp at 11:00UZMA Collins II, MD Oct 10, 2016 08:03
[2016-10-10 08:43] LABS: BASO # 0.1 x10^3/uL (0.0-0.2); BASO % 1 % (0-3); EOS % 6 % (0-3); HEMATOCRIT 31.2 % (36.0-47.0); HEMOGLOBIN 10.5 g/dL (12.0-15.5); LYMPH # 1.6 x10^3/uL (1.0-4.8); LYMPH % 24 % (24-48); MEAN CORPUSCULAR HEMOGLOBIN 32 pg (25-35); MEAN CORPUSCULAR HGB CONC 34 g/dL (31-37); MEAN CORPUSCULAR VOLUME 94 fL (79-100); MONO % 11 % (0-9); NEUT % 58 % (31-73); PLATELET COUNT 228 x10^3/uL (140-400); RED BLOOD COUNT 3.32 x10^6/uL (3.50-5.40); RED CELL DISTRIBUTION WIDTH 13.9 % (11.5-14.5); WHITE BLOOD COUNT 6.7 x10^3/uL (4.0-11.0)
--- NOTE | 2016-10-10 08:47 | PDOC ---
Infectious Disease Note Subjective Subjective Admitted from ID office 10/08. Had been treated with IV Cefazolin for MSSA toe osteomyelitis for 6 weeks and changed to oral but became ill on Thursday. Presented to the office with temp 99.5 N/V c/o loose stool but not c/w c -diff and increased swelling and redness of her right great toe. I recommended admission. D/w Dr. Mcbride and made recommendations She is ok this am. Awaiting surgery. Happy her c-diff is neg. Neck is becoming more problematic with discomfort ROS ROS GEN: Denies fevers, chills, sweats HEENT: Denies blurred vision, sore throat CV: Denies chest pain RESP: Denies shortness of air, cough GI: Denies n/v/d NEURO: Denies confusion, dizziness MSK: Denies weakness, joint pain/swelling Vital Sign Vital Signs Vital Signs Date Time Temp Pulse Resp B/P (MAP) Pulse Ox O2 Delivery O2 Flow Rate FiO2 10/10/16 07:00 97.5 75 20 103/59 (74) 94 Room Air 97.5 Physical Exam PHYSICAL EXAM GENERAL: NAD, Alert, coop HEENT: PERRL, OC/OP- clear. Scalp lesion on left clean NECK: Supple, no JVD, no LN. Posterior with some small vesicular lesions LUNGS: Clear HEART: S1S2, no gallop, no murmur ABD: Soft, NT, no organomegaly, no rebound EXT: Left BKA. Right great toe with erythema and edema. wound on dorsal aspect dressed [employer]IST: Alert, oriented x 3, no focal neurologic deficit SKIN: No generalized rash but post neck ? Zoster IV: Fistula clean. Left chest power PICC clean Labs Lab Laboratory Tests Test 10/09/16 08:53 10/09/16 09:00 10/09/16 11:07 10/09/16 16:26 Glucose (Fingerstick) 148 mg/dL (70-99) 159 mg/dL (70-99) 147 mg/dL (70-99) Random Gentamicin Level 5.0 mcg/mL Test 10/09/16 20:32 10/09/16 23:15 10/10/16 07:36 Glucose (Fingerstick) 269 mg/dL (70-99) 271 mg/dL (70-99) 121 mg/dL (70-99) Objective Assessment Fever - better Likely Herpes Zoster on neck Toe wound ? worsening osteo ? PAD CKD - on HD Recent MSSA Abx allergies- MEROPENEM AND PIPERACILLIN/TAZOBACTAM CAUSING "BLEEDING RASH" DESCRIBED THE SKIN PEELING AND BLEEDING, ALSO SULFA Plan Plan of Care Add valtrex Await partial toe amputation today F/u aortogram Cont Vanc/Gent/Levoflox/Flagyl - adjust doses F/u labs/cult D/w Drs. Jolley and ALBERTO Younger MD Oct 10, 2016 08:47
[2016-10-10] MEDS: diphenhydrAMINE HCL 25 MG CAPSULE PO SCH ×3 (08:51→21:12)
[2016-10-10] MEDS: ASPIRIN 325 MG TABLET PO SCH (08:51)
[2016-10-10] MEDS: FUROSEMIDE 80 MG TABLET. PO SCH ×2 (08:51→14:00)
[2016-10-10] MEDS: MORPHINE ER 15 MG TABLET.ER PO SCH ×2 (08:51→21:12)
[2016-10-10] MEDS: FOLIC/VIT B COMP W-C (RENAL) TABLET. PO SCH (08:53)
[2016-10-10] MEDS: valACYclovir 500 MG TABLET. PO SCH (08:53)
[2016-10-10 08:56] LABS: CALCIUM 8.2 mg/dL (8.5-10.1); CREATININE 4.7 mg/dL (0.6-1.0); GFR 9.8; POTASSIUM 4.4 mmol/L (3.5-5.1)
--- NOTE | 2016-10-10 09:11 | RAD ---
AP portable chest radiograph 10/10/2016 Clinical History: Central line placement. An AP portable erect digital radiograph of the chest was obtained. Comparison study is dated 08/06/2015. The patient is status post CABG procedure. A stent overlies the right brachiocephalic vein. A left subclavian central venous catheter has been placed. The tip of this catheter extends to overlie the superior aspect of the superior vena cava. The cardiac silhouette is mildly enlarged. Atherosclerotic calcification of the thoracic aorta is seen. The thoracic aorta is mildly tortuous. Blunting of the left costophrenic angle is seen which may reflect a small left pleural effusion versus pleural thickening. No pneumothorax is noted. No acute pulmonary infiltrate is seen. Degenerative changes are seen involving the thoracic spine. Impression: Interval placement of a left subclavian central venous catheter. The tip of this catheter extends to overlie the superior vena cava. No pneumothorax is seen.
--- NOTE | 2016-10-10 09:26 | CONS ---
DATE OF CONSULTATION: 10/10/2016 REFERRING PROVIDER: Dr. Delgadillo. CONSULTING PROVIDER: Vikas Jaimes MD REASON FOR CONSULTATION: Right great toe osteomyelitis. CHIEF COMPLAINT: Worsening pain and swelling at toe. HISTORY OF PRESENT ILLNESS: The patient is a 51-year-old female well known to me with renal disease who I had performed a left below knee amputation for a nonhealing wound quite some time ago. I had seen and evaluated her the while ago for wounds on her right foot and we had done local wound care in an effort to try to save the great toe; however, she tells me it has become more painful and swollen lately. She was seen in the Infectious Disease office and they recommended admission due to that as well as systemic complaints. She tells me there has been some increased drainage at her right toe as well. She has been feeling some headaches as well lately. REVIEW OF SYSTEMS: Twelve point review of systems negative except as per HPI. ALLERGIES: SULFA, MEROPENEM AND PIPERACILLIN/TAZOBACTAM. MEDICATIONS: Reviewed, please see MRAD. PAST MEDICAL HISTORY: Coronary artery disease, CHF, hypertension, OR, hyperlipidemia, asthma, COPD, history of pneumonia, GERD, anemia, fibromyalgia, on dialysis, diabetes. PAST SURGICAL HISTORY: CABG, hysterectomy, left below knee amputation, right toe and foot irrigation and debridement in the past. SOCIAL HISTORY: No alcohol or tobacco. FAMILY HISTORY: Diabetes and hypertension. PHYSICAL EXAMINATION: VITAL SIGNS: Reviewed. She has been afebrile. GENERAL: She is awake and alert. HEENT: Head is normocephalic and atraumatic. Extraocular muscles are intact. CARDIOVASCULAR: Regular rate and rhythm. Mild edema at her right lower extremity from her ankle distally. Dorsalis pedis not palpable on the right side. LUNGS: Respirations are unlabored with symmetric chest rise. ABDOMEN: Soft and nondistended. EXTREMITIES: Examination of right lower extremity reveals a dime-sized wound with necrotic debris at its base centered over the dorsal aspect of her IP joint. Her great toe is red and swollen. No obvious purulent drainage. She has a superficial mid dorsal foot wound on the right side as well. Her right great toe is fixed at about 10 degrees of dorsiflexion at the MTP joint and minimal motion at the IP joint, fixed flexion deformity there. IMAGING: X-rays are reviewed and reveal small evidence of increased osteomyelitis around the IP joint. Report for the studies was also reviewed. Vascular studies were reviewed. IMPRESSION: Right great toe osteomyelitis with chronic wound. PLAN: I did discuss her care with Dr. Delgadillo. I did review Dr. Tristan's note. I think from my standpoint, we have tried more conservative therapies for her great toe, but I did discuss partial amputation of her toe with her as means of potential resolution for her problem and she was agreeable to this. We will plan on performing this later this morning. VIKAS JAIMES MD DR: EBEN/guillermo JOB#: [id number] / [id number] VERENA
[2016-10-10] MEDS ORDERED: ALTEPLASE 2 MG VIAL INT CAT ONE (10:00)
[2016-10-10] MEDS ORDERED: LIDOCAINE 1% 20 ML VIAL. ONE (10:29)
[2016-10-10] MEDS ORDERED: BUPIVACAINE MPF 0.5% 30 ML VIAL. ONE (10:29)
[2016-10-10] MEDS: fentaNYL PF VIAL 100 MCG/2 ML VIAL IV PRN ×3 (10:35→12:51)
[2016-10-10] MEDS: IV RINGERS,LACTATED 1000ML 1,000 ML IV SCH ×2 (10:51→18:51)
[2016-10-10] MEDS ORDERED: LIDOCAINE 2% 20 ML VIAL. ONE (10:58)
[2016-10-10] MEDS ORDERED: LIDOCAINE 1% 1 ML SYRINGE. ID PRN (11:00)
[2016-10-10] MEDS ORDERED: MEPERIDINE PF 25 MG/ML VIAL. IV PRN (11:00)
[2016-10-10] MEDS ORDERED: PROCHLORPERAZINE 10 MG/2 ML VIAL. IV PRN (11:00)
[2016-10-10] MEDS ORDERED: MORPHINE SULFATE 4 MG/ML DISP.SYRIN. IV PRN (11:00)
[2016-10-10] MEDS ORDERED: HYDROmorphone 2 MG/ML VIAL IV PRN (11:00)
[2016-10-10] MEDS ORDERED: diphenhydrAMINE 50 MG/ML VIAL IV PRN (11:00)
[2016-10-10] MEDS ORDERED: IV NORMAL SALINE 1000ML BAG 1,000 ML IV ONE (11:00)
[2016-10-10] MEDS ORDERED: MIDAZOLAM HCL/PF 2 MG/2 ML VIAL. IV PRN ×2 (11:00)
[2016-10-10] MEDS ORDERED: fentaNYL PF VIAL 100 MCG/2 ML VIAL IV PRN ×2 (11:00)
[2016-10-10] MEDS ORDERED: PROPOFOL 50 ML IV ONE (11:39)
--- NOTE | 2016-10-10 11:45 | PDOC ---
BRIEF OPERATIVE NOTE Date: Oct 10, 2016 Pre-Op Diagnosis R great toe chronic wound and osteo Post-Op Diagnosis same Procedure Performed Partial amp R great toe, I and D Surgeon Shola Anesthesiologist Gene Anesthesia Type: Regional, Conscious Sedation Blood Loss 10mL Complications none UZMA JAIMES II, MD Oct 10, 2016 11:45
--- NOTE | 2016-10-10 11:52 | PDOC ---
Renal-Progress Notes Subjective Notes Notes NONE History of Present Illness Hx of present illness STABLE Vitals Vitals Vital Signs Date Time Temp Pulse Resp B/P (MAP) Pulse Ox O2 Delivery O2 Flow Rate FiO2 10/10/16 10:59 15 95 Room Air 10/10/16 10:51 98.3 73 109/65 98.3 Weight Weight [ ] I.O. Intake and Output Intake and Output 10/10/16 07:00 Intake Total 1650 ml Output Total 0 ml Balance 1650 ml Intake Oral 1650 ml Output Urine Total 0 ml Labs Labs Laboratory Tests Test 10/09/16 16:26 10/09/16 20:32 10/09/16 23:15 10/10/16 07:36 Glucose (Fingerstick) 147 mg/dL (70-99) 269 mg/dL (70-99) 271 mg/dL (70-99) 121 mg/dL (70-99) Test 10/10/16 08:30 White Blood Count 6.7 x10^3/uL (4.0-11.0) Red Blood Count 3.32 x10^6/uL (3.50-5.40) Hemoglobin 10.5 g/dL (12.0-15.5) Hematocrit 31.2 % (36.0-47.0) Mean Corpuscular Volume 94 fL (79-100) Mean Corpuscular Hemoglobin 32 pg (25-35) Mean Corpuscular Hemoglobin Concent 34 g/dL (31-37) Red Cell Distribution Width 13.9 % (11.5-14.5) Platelet Count 228 x10^3/uL (140-400) Neutrophils (%) (Auto) 58 % (31-73) Lymphocytes (%) (Auto) 24 % (24-48) Monocytes (%) (Auto) 11 % (0-9) Eosinophils (%) (Auto) 6 % (0-3) Basophils (%) (Auto) 1 % (0-3) Neutrophils # (Auto) 3.9 x10^3uL (1.8-7.7) Lymphocytes # (Auto) 1.6 x10^3/uL (1.0-4.8) Monocytes # (Auto) 0.8 x10^3/uL (0.0-1.1) Eosinophils # (Auto) 0.4 x10^3/uL (0.0-0.7) Basophils # (Auto) 0.1 x10^3/uL (0.0-0.2) Sodium Level 139 mmol/L (136-145) Potassium Level 4.4 mmol/L (3.5-5.1) Chloride Level 98 mmol/L (98-107) Carbon Dioxide Level 31 mmol/L (21-32) Anion Gap 10 (6-14) Blood Urea Nitrogen 44 mg/dL (7-20) Creatinine 4.7 mg/dL (0.6-1.0) Estimated GFR (Cockcroft-Gault) 9.8 Glucose Level 118 mg/dL (70-99) Calcium Level 8.2 mg/dL (8.5-10.1) Micro Micro Microbiology 10/08/16 Blood Culture - Preliminary, Resulted NO GROWTH AFTER 1 DAY Review of Systems Constitutional: yes: weakness, alert, oriented Pulmonary: Yes no symptom reported Cardiovascular: Yes no symptom reported Gastrointestional: Yes: no symptom reported Musculoskeletal: Yes: muscle stiffness Skin: Yes no symptom reported Physical Exam General Appearance: no apparent distress Skin: warm Respiratory: bilateral CTA Heart: S1S2 Abdomen: soft Extremities: atrophy Neurology: alert Assessment Assessment IMP DM II HTN ANEMIA TOE OSTEO ESRD PLAN WOUND CARE ANTIBIOTICS HD TOMORROW CHARLY ZAVALA MD Oct 10, 2016 11:52
--- NOTE | 2016-10-10 11:52 | PDOC ---
PROGRESS NOTES Chief Complaint Chief Complaint 1. R toe wound infection with h/o osteomyelitis post amputation 2 and 3rd toes, + right great toe osteomyelitis 2. ESRD on HD TTHS 3. AOCD 4. Left BKA 5. HX CABG 6. Left ear swelling and nape rash recently on cefazolin 7. Allergy to Zosyn and meropnemen with hemarrhagic rash 8. Indwelling left chest Central line 9. dm2 on low dose insulin 10. low Albumin with ESRD 11. possible PAD 12. left neck zoster PLAN: FU WITH ID, ON several abx ssi cont home meds vascular consult for PAD, altho no severe fem-pop PAD, seems has aortoilliac PAD , CTA today cont HD dvt ppx pain control ptot valtrex added today ortho for rt great toe amputation today History of Present Illness History of Present Illness right foot with dressing feels ok, but left ear, left neck has some rash with blisters like today, pain , tender refused levemir last night. glucose ok today, high last night Vitals Vitals Vital Signs Date Time Temp Pulse Resp B/P (MAP) Pulse Ox O2 Delivery O2 Flow Rate FiO2 10/10/16 10:59 15 95 Room Air 10/10/16 10:51 98.3 73 109/65 98.3 Physical Exam Physical Exam left ear, left neck has some rash with either bacteria infection or blisters, pain, tender left leg BKA right great toe has a open ulcer, non healing, 2, 3rd toes post amputation General: Alert, Oriented X3 Heart: Regular rate, Normal S1, Normal S2 Lungs: Clear Abdomen: Normal bowel sounds, Soft, No tenderness Extremities: No edema, Other (palpable bilateral femoral arteries, no palpable popliteal on the right or palpable pedal pulses on the right) Skin: Other (erythema around the right 1st toe, no purulent drainage) Labs LABS Laboratory Tests Test 10/09/16 16:26 10/09/16 20:32 10/09/16 23:15 10/10/16 07:36 Glucose (Fingerstick) 147 mg/dL (70-99) 269 mg/dL (70-99) 271 mg/dL (70-99) 121 mg/dL (70-99) Test 10/10/16 08:30 White Blood Count 6.7 x10^3/uL (4.0-11.0) Red Blood Count 3.32 x10^6/uL (3.50-5.40) Hemoglobin 10.5 g/dL (12.0-15.5) Hematocrit 31.2 % (36.0-47.0) Mean Corpuscular Volume 94 fL (79-100) Mean Corpuscular Hemoglobin 32 pg (25-35) Mean Corpuscular Hemoglobin Concent 34 g/dL (31-37) Red Cell Distribution Width 13.9 % (11.5-14.5) Platelet Count 228 x10^3/uL (140-400) Neutrophils (%) (Auto) 58 % (31-73) Lymphocytes (%) (Auto) 24 % (24-48) Monocytes (%) (Auto) 11 % (0-9) Eosinophils (%) (Auto) 6 % (0-3) Basophils (%) (Auto) 1 % (0-3) Neutrophils # (Auto) 3.9 x10^3uL (1.8-7.7) Lymphocytes # (Auto) 1.6 x10^3/uL (1.0-4.8) Monocytes # (Auto) 0.8 x10^3/uL (0.0-1.1) Eosinophils # (Auto) 0.4 x10^3/uL (0.0-0.7) Basophils # (Auto) 0.1 x10^3/uL (0.0-0.2) Sodium Level 139 mmol/L (136-145) Potassium Level 4.4 mmol/L (3.5-5.1) Chloride Level 98 mmol/L (98-107) Carbon Dioxide Level 31 mmol/L (21-32) Anion Gap 10 (6-14) Blood Urea Nitrogen 44 mg/dL (7-20) Creatinine 4.7 mg/dL (0.6-1.0) Estimated GFR (Cockcroft-Gault) 9.8 Glucose Level 118 mg/dL (70-99) Calcium Level 8.2 mg/dL (8.5-10.1) Review of Systems Review of Systems no fever, chills, sob or chest pain Comment Review of Relevant I have reviewed the following items bert (where applicable) has been applied. Labs Laboratory Tests Test 10/08/16 20:33 10/08/16 22:00 10/09/16 05:33 10/09/16 05:45 Glucose (Fingerstick) 135 mg/dL (70-99) White Blood Count 10.9 x10^3/uL (4.0-11.0) Red Blood Count 3.52 x10^6/uL (3.50-5.40) Hemoglobin 11.3 g/dL (12.0-15.5) Hematocrit 31.9 % (36.0-47.0) Mean Corpuscular Volume 91 fL (79-100) Mean Corpuscular Hemoglobin 32 pg (25-35) Mean Corpuscular Hemoglobin Concent 36 g/dL (31-37) Red Cell Distribution Width 13.8 % (11.5-14.5) Platelet Count 220 x10^3/uL (140-400) Neutrophils (%) (Auto) 81 % (31-73) Lymphocytes (%) (Auto) 9 % (24-48) Monocytes (%) (Auto) 8 % (0-9) Eosinophils (%) (Auto) 2 % (0-3) Basophils (%) (Auto) 1 % (0-3) Neutrophils # (Auto) 8.8 x10^3uL (1.8-7.7) Lymphocytes # (Auto) 0.9 x10^3/uL (1.0-4.8) Monocytes # (Auto) 0.8 x10^3/uL (0.0-1.1) Eosinophils # (Auto) 0.2 x10^3/uL (0.0-0.7) Basophils # (Auto) 0.1 x10^3/uL (0.0-0.2) Sodium Level 134 mmol/L (136-145) Potassium Level 4.0 mmol/L (3.5-5.1) Chloride Level 94 mmol/L (98-107) Carbon Dioxide Level 29 mmol/L (21-32) Anion Gap 11 (6-14) Blood Urea Nitrogen 50 mg/dL (7-20) Creatinine 5.5 mg/dL (0.6-1.0) Estimated GFR (Cockcroft-Gault) 8.2 BUN/Creatinine Ratio 9 (6-20) Glucose Level 153 mg/dL (70-99) Calcium Level 8.5 mg/dL (8.5-10.1) Total Bilirubin 0.4 mg/dL (0.2-1.0) Aspartate Amino Transf (AST/SGOT) 14 U/L (15-37) Alanine Aminotransferase (ALT/SGPT) 12 U/L (14-59) Alkaline Phosphatase 163 U/L (46-116) Total Protein 6.6 g/dL (6.4-8.2) Albumin 3.2 g/dL (3.4-5.0) Albumin/Globulin Ratio 0.9 (1.0-1.7) Random Gentamicin Level 0.4 mcg/mL Erythrocyte Sedimentation Rate 64 (0-25) Prothrombin Time 15.5 SEC (11.7-14.0) Prothromb Time International Ratio 1.3 (0.8-1.1) Lactic Acid Level 0.7 mmol/L (0.4-2.0) Urine Collection Type Clean catch Urine Color Yellow Urine Clarity Clear Urine pH 7.0 Urine Specific [place] 1.015 Urine Protein >=300 mg/dL (NEG-TRACE) Urine Glucose (UA) 100 mg/dL (NEG) Urine Ketones (Stick) Negative mg/dL (NEG) Urine Blood Small (NEG) Urine Nitrite Negative (NEG) Urine Bilirubin Negative (NEG) Urine Urobilinogen Dipstick 0.2 mg/dL (0.2 mg/dL) Urine Leukocyte Esterase Negative (NEG) Urine RBC 3-5 /HPF (0-2) Urine WBC 5-10 /HPF (0-4) Urine Squamous Epithelial Cells Many /LPF Urine Bacteria Many /HPF (0-FEW) Test 10/09/16 06:11 10/09/16 07:00 10/09/16 08:53 10/09/16 09:00 Glucose (Fingerstick) 163 mg/dL (70-99) 148 mg/dL (70-99) Nasal Screen MRSA (PCR) Negative (Negative) Clostridium difficile Toxin (PCR) Negative (Negative) Random Gentamicin Level 5.0 mcg/mL Test 10/09/16 11:07 10/09/16 16:26 10/09/16 20:32 10/09/16 23:15 Glucose (Fingerstick) 159 mg/dL (70-99) 147 mg/dL (70-99) 269 mg/dL (70-99) 271 mg/dL (70-99) Test 10/10/16 07:36 10/10/16 08:30 Glucose (Fingerstick) 121 mg/dL (70-99) White Blood Count 6.7 x10^3/uL (4.0-11.0) Red Blood Count 3.32 x10^6/uL (3.50-5.40) Hemoglobin 10.5 g/dL (12.0-15.5) Hematocrit 31.2 % (36.0-47.0) Mean Corpuscular Volume 94 fL (79-100) Mean Corpuscular Hemoglobin 32 pg (25-35) Mean Corpuscular Hemoglobin Concent 34 g/dL (31-37) Red Cell Distribution Width 13.9 % (11.5-14.5) Platelet Count 228 x10^3/uL (140-400) Neutrophils (%) (Auto) 58 % (31-73) Lymphocytes (%) (Auto) 24 % (24-48) Monocytes (%) (Auto) 11 % (0-9) Eosinophils (%) (Auto) 6 % (0-3) Basophils (%) (Auto) 1 % (0-3) Neutrophils # (Auto) 3.9 x10^3uL (1.8-7.7) Lymphocytes # (Auto) 1.6 x10^3/uL (1.0-4.8) Monocytes # (Auto) 0.8 x10^3/uL (0.0-1.1) Eosinophils # (Auto) 0.4 x10^3/uL (0.0-0.7) Basophils # (Auto) 0.1 x10^3/uL (0.0-0.2) Sodium Level 139 mmol/L (136-145) Potassium Level 4.4 mmol/L (3.5-5.1) Chloride Level 98 mmol/L (98-107) Carbon Dioxide Level 31 mmol/L (21-32) Anion Gap 10 (6-14) Blood Urea Nitrogen 44 mg/dL (7-20) Creatinine 4.7 mg/dL (0.6-1.0) Estimated GFR (Cockcroft-Gault) 9.8 Glucose Level 118 mg/dL (70-99) Calcium Level 8.2 mg/dL (8.5-10.1) Laboratory Tests Test 10/09/16 16:26 10/09/16 20:32 10/09/16 23:15 10/10/16 07:36 Glucose (Fingerstick) 147 mg/dL (70-99) 269 mg/dL (70-99) 271 mg/dL (70-99) 121 mg/dL (70-99) Test 10/10/16 08:30 White Blood Count 6.7 x10^3/uL (4.0-11.0) Red Blood Count 3.32 x10^6/uL (3.50-5.40) Hemoglobin 10.5 g/dL (12.0-15.5) Hematocrit 31.2 % (36.0-47.0) Mean Corpuscular Volume 94 fL (79-100) Mean Corpuscular Hemoglobin 32 pg (25-35) Mean Corpuscular Hemoglobin Concent 34 g/dL (31-37) Red Cell Distribution Width 13.9 % (11.5-14.5) Platelet Count 228 x10^3/uL (140-400) Neutrophils (%) (Auto) 58 % (31-73) Lymphocytes (%) (Auto) 24 % (24-48) Monocytes (%) (Auto) 11 % (0-9) Eosinophils (%) (Auto) 6 % (0-3) Basophils (%) (Auto) 1 % (0-3) Neutrophils # (Auto) 3.9 x10^3uL (1.8-7.7) Lymphocytes # (Auto) 1.6 x10^3/uL (1.0-4.8) Monocytes # (Auto) 0.8 x10^3/uL (0.0-1.1) Eosinophils # (Auto) 0.4 x10^3/uL (0.0-0.7) Basophils # (Auto) 0.1 x10^3/uL (0.0-0.2) Sodium Level 139 mmol/L (136-145) Potassium Level 4.4 mmol/L (3.5-5.1) Chloride Level 98 mmol/L (98-107) Carbon Dioxide Level 31 mmol/L (21-32) Anion Gap 10 (6-14) Blood Urea Nitrogen 44 mg/dL (7-20) Creatinine 4.7 mg/dL (0.6-1.0) Estimated GFR (Cockcroft-Gault) 9.8 Glucose Level 118 mg/dL (70-99) Calcium Level 8.2 mg/dL (8.5-10.1) Microbiology 10/08/16 Blood Culture - Preliminary, Resulted NO GROWTH AFTER 1 DAY Medications Current Medications Vancomycin HCl (Vanco Per Pharmacy) 1 each PRN DAILY PRN MC SEE COMMENTS Last administered on 10/08/16 22:03; Start 10/08/16 at 20:15 Gentamicin Sulfate 1 each PRN DAILY PRN MC SEE COMMENTS Last administered on 10:30; Start 10/08/16 at 20:15 Levofloxacin/ Dextrose 100 ml @ 100 mls/hr Q24H IV Last administered on 01:20; Start 10/08/16 at 21:00; Stop 10/09/16 at 08:36; Status DC Metronidazole 100 ml @ 100 mls/hr Q12HR IV Last administered on 10/09/16 03: 42; Start 10/08/16 at 21:00; Stop 10/09/16 at 08:36; Status DC Ondansetron HCl (Zofran) 4 mg PRN Q6HRS PRN IV NAUSEA/VOMITING Last administered on 10/10/16 06:26; Start 10/08/16 at 20:15 Acetaminophen (Tylenol) 650 mg PRN Q6HRS PRN PO FEVER; Start 10/08/16 at 20:15 Morphine Sulfate 2 mg PRN Q2HR PRN IV PAIN; Start 10/08/16 at 20:15; Stop 10/08 at 21:26; Status DC Acetaminophen/ Hydrocodone Bitart (Lortab 5/325) 1 tab PRN Q4HRS PRN PO MODERATE TO SEVERE PAIN; Start 10/08/16 at 20:15 Fentanyl Citrate (Fentanyl 2ml Vial) 50 mcg PRN Q2HR PRN IV PAIN Last administered on 10/09/16 20:28; Start 10/08/16 at 21:30 Aspirin (Anthony Aspirin) 325 mg DAILY PO ; Start 10/09/16 at 09:00 Carvedilol (Coreg) 12.5 mg BIDWMEALS PO Last administered on 10/09/16 16:46; Start 10/09/16 at 08:00 Docusate Sodium (Colace) 100 mg PRN BID PRN PO CONSTIPATION; Start 10/08/16 at 21:30 Fluconazole (Diflucan) 100 mg DAILY16 PO Last administered on 10/09/16 16:46; Start 10/09/16 at 16:00 Vitamin B Complex/ Vitamin C (Melly-Shabbir) 1 tab DAILY PO ; Start 10/09/16 at 09: 00 Furosemide (Lasix) 80 mg BID92 PO ; Start 10/09/16 at 09:00 Morphine Sulfate (Ms Contin) 15 mg BID PO ; Start 10/09/16 at 21:30; Stop at 21:30; Status DC Nitroglycerin (Nitrostat) 0.4 mg PRN Q5MIN PRN SL CHEST PAIN; Start 10/08/16 at 21:30 Oxycodone/ Acetaminophen (Percocet 10/325) 1 tab Q4HRS PO Last administered on 10/09/16 22:19; Start 10/09/16 at 00:00 Sevelamer Carbonate (Renvela) 800 mg TIDWMEALS PO Last administered on 16:45; Start 10/09/16 at 08:00 Tramadol HCl (Ultram) 50 mg PRN Q6HRS PRN PO MILD TO MODERATE PAIN; Start 10/08 at 21:30 Atorvastatin Calcium (Lipitor) 80 mg QHS PO Last administered on 10/09/16 22: 19; Start 10/09/16 at 21:00 Fenofibrate (Lofibra) 134 mg QHS PO Last administered on 10/09/16 22:20; Start 10/08/16 at 22:00 Niacin (Slo-Niacin) 500 mg QHS PO Last administered on 10/09/16 22:20; Start 10/09/16 at 21:00 Non-Formulary Medication 210 mg TIDWMEALS PO ; Start 10/09/16 at 08:00; Status UNV Diphenhydramine HCl (Benadryl) 25 mg PRN Q6HRS PRN IVP ITCHING Last administered on 10/09/16 22:21; Start 10/08/16 at 21:30 Diphenhydramine HCl (Benadryl) 25 mg TID PO ; Start 10/08/16 at 21:30; Status Cancel Heparin Sodium (Porcine) (Heparin Sq) 5,000 unit Q8HRS SQ Last administered on 10/09/16 16:52; Start 10/08/16 at 22:00 Vancomycin HCl 2 gm/Sodium Chloride 500 ml @ 250 mls/hr 1X ONCE IV Last administered on 10/09/16 00:09; Start 10/08/16 at 22:00; Stop 10/08/16 at 23:59 ; Status DC Morphine Sulfate (Ms Contin) 15 mg BID PO Last administered on 10/09/16 22:19 ; Start 10/08/16 at 22:00 Diphenhydramine HCl (Benadryl) 50 mg TID PO Last administered on 10/09/16 20: 28; Start 10/08/16 at 22:00 Gentamicin Sulfate 170 mg/ Sodium Chloride 104.25 ml @ 104.25 mls/hr 1X ONCE IV ; Start 10/08/16 at 22:00; Stop 10/08/16 at 22:59; Status Cancel Gentamicin Sulfate 145 mg/ Sodium Chloride 103.625 ml @ 103.625 mls/hr 1X ONCE IV Last administered on 10/08/16 22:51; Start 10/08/16 at 23:00; Stop at 23:59; Status DC Gentamicin Sulfate 1 each 1X ONCE MC Last administered on 10/09/16 09:00; Start 10/09/16 at 09:00; Stop 10/09/16 at 09:01; Status DC Vancomycin HCl 1 each 1X ONCE MC ; Start 10/11/16 at 00:00; Stop 10/11/16 at 00 :01 Diphenhydramine HCl (Benadryl) 50 mg 1X ONCE PO Last administered on 03:55; Start 10/09/16 at 04:00; Stop 10/09/16 at 04:01; Status DC Levofloxacin/ Dextrose 100 ml @ 100 mls/hr Q48H IV ; Start 10/10/16 at 21:00 Metronidazole 100 ml @ 100 mls/hr Q8HRS IV Last administered on 10/10/16 06: 27; Start 10/09/16 at 14:00 Insulin Aspart (NovoLOG) 0-9 UNITS TIDWMEALS SQ ; Start 10/09/16 at 12:00; Stop 10/09/16 at 21:16; Status DC Dextrose (Dextrose 50%-Water Syringe) 12.5 gm PRN Q15MIN PRN IV SEE COMMENTS; Start 10/09/16 at 09:30 Sodium Chloride 1,000 ml @ 1,000 mls/hr Q1H PRN IV hypotension; Start 10/09/16 at 11:48; Stop 10/09/16 at 17:47; Status DC Albumin Human 200 ml @ 200 mls/hr 1X PRN PRN IV Hypotension; Start 10/09/16 at 12:00; Stop 10/09/16 at 17:59; Status DC Diphenhydramine HCl (Benadryl) 25 mg 1X PRN PRN IV ITCHING; Start 10/09/16 at 12:00; Stop 10/10/16 at 11:59 Diphenhydramine HCl (Benadryl) 25 mg 1X PRN PRN IV ITCHING; Start 10/09/16 at 12:00; Stop 10/10/16 at 11:59 Sodium Chloride 1,000 ml @ 400 mls/hr Q2H30M PRN IV PATENCY; Start 10/09/16 at 11:48; Stop 10/09/16 at 23:47; Status DC Info (PHARMACY MONITORING -- do not chart) 1 each PRN DAILY PRN MC SEE COMMENTS ; Start 10/09/16 at 12:00 Lidocaine HCl (Xylocaine-Mpf 1% Vial) 0.5 ml 1X STAT ID ; Start 10/09/16 at 12: 06; Stop 10/09/16 at 12:14; Status DC Insulin Aspart (NovoLOG) 0-9 UNITS QIDACHS SQ ; Start 10/10/16 at 07:30; Stop at 07:30; Status DC Insulin Detemir (Levemir) 4 units QHS SQ ; Start 10/09/16 at 21:30 Morphine Sulfate 4 mg PRN Q3HRS PRN IV PAIN Last administered on 10/10/16t 06: 19; Start 10/09/16 at 23:00 Insulin Aspart (NovoLOG) 0-9 UNITS QIDACHS SQ Last administered on 10/09/16t 23 :21; Start 10/09/16 at 07:30; Stop 10/09/16 at 23:45; Status DC Insulin Aspart (NovoLOG) 0-9 UNITS QIDACHS SQ ; Start 10/09/16 at 23:55 Lidocaine HCl (Xylocaine-Mpf 1% Vial) 2 ml STK-MED ONCE .ROUTE ; Start 10/09/16 at 12:00; Stop 10/10/16 at 08:27; Status DC Valacyclovir HCl (Valtrex) 500 mg DAILY PO ; Start 10/10/16 at 09:00 Alteplase, Recombinant (Cathflo) 2 mg 1X ONCE INT CAT Last administered on t 10:18; Start 10/10/16 at 10:00; Stop 10/10/16 at 10:01; Status DC Bupivacaine HCl (Sensorcaine Mpf 0.5%) 30 ml STK-MED ONCE .ROUTE ; Start at 10:29; Stop 10/10/16 at 10:30; Status DC Lidocaine HCl 20 ml STK-MED ONCE .ROUTE ; Start 10/10/16 at 10:29; Stop at 10:30; Status DC Fentanyl Citrate (Fentanyl 2ml Vial) 50 mcg PRN Q5MIN PRN IV Acute Pain Last administered on 10/10/16t 10:59; Start 10/10/16 at 11:00; Stop 10/11/16 at 10:59 Morphine Sulfate 4 mg PRN Q10MIN PRN IV Moderate Pain; Start 10/10/16 at 11:00 ; Stop 10/11/16 at 10:59 Hydromorphone HCl (Dilaudid) 0.4 mg PRN Q10MIN PRN IV Moderate to severe pain; Start 10/10/16 at 11:00; Stop 10/11/16 at 10:59 Meperidine HCl (Demerol) 12.5 mg PRN Q5MIN PRN IV SHIVERING; Start 10/10/16 at 11:00; Stop 10/11/16 at 10:59 Prochlorperazine Edisylate (Compazine) 5 mg PRN Q6HRS PRN IV Nausea/Vomiting, 1st Choice; Start 10/10/16 at 11:00; Stop 10/11/16 at 10:59 Diphenhydramine HCl (Benadryl) 12.5 mg PRN Q2HR PRN IV ITCHING; Start 10/10/16 at 11:00; Stop 10/11/16 at 10:59 Midazolam HCl (Versed) 2 mg PRN 1X PRN IV PRIOR TO PROCEDURE; Start 10/10/16 at 11:00; Stop 10/11/16 at 10:59 Midazolam HCl (Versed) 1 mg PRN 1X PRN IV PRIOR TO PROCEDURE; Start 10/10/16 at 11:00; Stop 10/11/16 at 10:59 Fentanyl Citrate (Fentanyl 2ml Vial) 25 mcg PRN Q5MIN PRN IV X 2 DOSES FOR PAIN ; Start 10/10/16 at 11:00; Stop 10/11/16 at 10:59 Fentanyl Citrate (Fentanyl 2ml Vial) 50 mcg PRN Q5MIN PRN IV X 2 DOSES FOR PAIN ; Start 10/10/16 at 11:00; Stop 10/11/16 at 10:59 Ringer's Solution 1,000 ml @ 125 mls/hr Q8H IV ; Start 10/10/16 at 10:51; Stop 10/10/16 at 22:50 Lidocaine HCl 2 ml 1X PRN PRN ID IV START; Start 10/10/16 at 11:00; Stop at 10:59 Sodium Chloride 1,000 ml @ 0 mls/hr 1X ONCE IV ; Start 10/10/16 at 11:00; Stop 10/10/16 at 11:01; Status DC Lidocaine HCl 20 ml STK-MED ONCE .ROUTE ; Start 10/10/16 at 10:58; Stop at 10:59; Status DC Propofol 50 ml @ As Directed STK-MED ONCE IV ; Start 10/10/16 at 11:39; Stop at 11:40; Status DC Active Scripts Active Percocet 10-325 Mg Tablet (Oxycodone/Acetaminophen) 1 Each Tablet 1 Tab PO Q4HRS Fluconazole 100 Mg Tablet 100 Mg PO DAILY16 Renvela (Sevelamer Carbonate) 800 Mg Tablet 800 Mg PO TIDWMEALS Morphine Sulfate Er (Morphine Sulfate) 15 Mg Tablet.er 15 Mg PO BID Reported Zofran (Ondansetron Hcl) 4 Mg Tablet 4 Mg PO Q6-8HRS PRN Lantus Solostar (Insulin Glargine,Hum.rec.anlog) 100 Unit/1 Ml Insuln.pen 10 Unit SQ QHS [auryxia] 210 Mg PO TIDWMEALS Carvedilol 12.5 Mg Tablet 1 Tab PO DAILY Carvedilol 12.5 Mg Tablet 1 Tab PO BID Nephro-Shabbir Tablet (Folic Acid/Vitamin B Comp W-C) 0.8 Mg Tablet 1 Tab PO DAILY Fluconazole 100 Mg Tablet 150 Mg PO PRN PRN Tramadol Hcl 50 Mg Tablet 50 Mg PO Q6H PRN Tricor (Fenofibrate Nanocrystallized) 145 Mg Tablet 1 Tab PO HS Lipitor (Atorvastatin Calcium) 80 Mg Tablet 80 Mg PO HS Niacin 500 Mg Tablet 500 Mg PO HS Novolog (Insulin Aspart) 100 Unit/1 Ml Cartridge 0 SQ TIDAC sliding scale Aspirin 325 Mg Tablet 325 Mg PO DAILY Furosemide 80 Mg Tablet 80 Mg PO BID Docusate Sodium 100 Mg Capsule 1 Cap PO PRN PRN Nitrostat (Nitroglycerin) 0.4 Mg Tab.subl 0.4 Mg SL PRN Q5MIN PRN Take as needed for chest pain Vitals/I & O Vital Sign - Last 24 Hours 10/09/16 10/09/16 10/09/16 10/09/16 16:30 16:46 19:00 19:45 Temp 97.9 97.9 97.9 97.9 Pulse 87 87 72 Resp 18 18 B/P (MAP) 130/64 (86) 130/64 98/47 (64) Pulse Ox 98 90 O2 Delivery Room Air Room Air Room Air 10/09/16 10/09/16 10/09/16 10/09/16 20:28 21:00 22:19 22:19 Pulse Ox 90 90 90 90 O2 Delivery Room Air Room Air Room Air Room Air 10/09/16 10/09/16 10/09/16 10/10/16 23:00 23:05 23:20 02:19 Temp 97.7 97.7 Pulse 82 Resp 18 B/P (MAP) 111/56 (74) Pulse Ox 94 90 90 90 O2 Delivery Room Air Room Air Room Air Room Air 10/10/16 10/10/16 10/10/16 10/10/16 03:00 03:17 03:45 06:19 Temp 97.7 97.7 Pulse 74 Resp 18 B/P (MAP) 115/63 (80) Pulse Ox 92 90 90 90 O2 Delivery Room Air Room Air Room Air 10/10/16 10/10/16 10/10/16 10/10/16 07:00 08:00 08:49 10:35 Temp 97.5 97.5 Pulse 75 75 Resp 20 12 B/P (MAP) 103/59 (74) 103/59 Pulse Ox 94 95 O2 Delivery Room Air Room Air Room Air 10/10/16 10/10/16 10:51 10:59 Temp 98.3 98.3 Pulse 73 Resp 14 15 B/P (MAP) 109/65 Pulse Ox 95 95 O2 Delivery Room Air Room Air Intake and Output 10/09/16 10/09/16 10/10/16 15:00 23:00 07:00 Intake Total 1250 ml 400 ml Output Total 0 ml Balance 1250 ml 400 ml QUIN BARRY MD Oct 10, 2016 11:52
[2016-10-10] MEDS ORDERED: LIDOCAINE 1% / SOD BICARB 8.4% 20 ML VIAL. IJ ONE ×2 (12:51→13:00)
[2016-10-10] MEDS ORDERED: IOHEXOL 300 MG/ML 100ML VIAL. ONE (12:51)
[2016-10-10] MEDS ORDERED: IODIXANOL 320MG/ML 50ML VIAL. ONE (12:51)
[2016-10-10] MEDS ORDERED: MIDAZOLAM HCL/PF 5 MG/5 ML VIAL. ONE (12:51)
[2016-10-10] MEDS ORDERED: fentaNYL PF VIAL 250 MCG/5 ML VIAL ONE (12:51)
[2016-10-10] MEDS ORDERED: HEPARIN for ARTERIAL LINE 1,500 ML ONE (12:52)
[2016-10-10] MEDS ORDERED: IODIXANOL 320 MG/ML 100 ML VIAL. ONE (12:52)
--- NOTE | 2016-10-10 12:55 | OP ---
DATE OF SURGERY: 10/10/2016 SURGEON: Vikas Jaimes MD MOLD CAR PUSHER: None. ANESTHESIA: Sedation with regional nerve block. PREOPERATIVE DIAGNOSES: 1. Osteomyelitis and chronic wound, right great toe. 2. Dorsal foot wound. POSTOPERATIVE DIAGNOSES: 1. Osteomyelitis and chronic wound, right great toe. 2. Dorsal foot wound. PROCEDURE PERFORMED: 1. Right great toe partial amputation through IP joint. 2. Irrigation and primary closure of 2 cm dorsal foot wound. ESTIMATED BLOOD LOSS: 10 mL. COMPLICATIONS: None. TOURNIQUET TIME: None used. SPECIMENS: Bone to pathology as well as took bone for culture from the tip of the distal phalanx. REASON FOR PROCEDURE: The patient is a 51-year-old female with a complicated cardiac and renal history, who I had performed a left below knee amputation on for chronic nonhealing wound. She had presented sometime after that with a right great toe wound and we had managed that with irrigation, debridement, antibiotics and wound VAC, but she failed to heal. She presented with worsening pain, noted some drainage of her great toe and we had a discussion of the risks, benefits, alternatives of the above surgery and she elected to proceed. DESCRIPTION OF PROCEDURE: The patient was greeted in the preoperative holding area where the correct extremity was marked and verified. She was taken to the operative suite and antibiotics were maintained. Once in the OR, she was transferred gently supine to the OR table and had a propofol drip started by the Anesthesiology team, who then placed a regional nerve block around her distal tibial region. After this, we then prepped and draped in our usual sterile fashion and conducted a standard preoperative timeout. I then used a skin marker to draw for my planned fish mouth type incision with a long plantar flap to accomplish removing the wound as well as performing my toe amputation to the IP joint. I then incised skin, full thickness, and cut through my planned incision and delivered the distal phalanx and the overlying skin and chronic wound from the operative field. After this, I inspected the tip of the proximal phalanx and noted areas that were quite soft. I took a sample of this, sent it for culture with a rongeur. I then used a bone biter to remove the bone at the level of the metaphyseal flare. After this, I cauterized a couple of bleeders along the medial and lateral aspect of the bone and then irrigated out the operative field, both of her areas, with 1000 mL of sterile normal saline. After this, I then closed the toe amputation site with a combination of simple and mattress 2-0 nylon. This closed well without any undue tension or blanching. I then placed a single vertical mattress to reapproximate the edges of the dorsal foot wound. This appeared fairly clean. I did not think it needed any debridement. After this, we placed Xeroform over the incisions followed by a sterile gauze, sterile cast padding and an Matthew wrap. She tolerated this well. There were no complications. Postop plan is to readmit her back to the floor under the care of the hospitalist service. We will follow along with her postoperative course. VIKAS JAIMES MD DR: EBEN/guillermo JOB#: [id number] / [id number] VERENA
[2016-10-10] MEDS ORDERED: CONTRAST GIVEN MC PRN (13:00)
[2016-10-10] MEDS ORDERED: IOHEXOL 300 MG/ML 100ML VIAL. IART ONE (13:00)
[2016-10-10] MEDS ORDERED: IODIXANOL 320 MG/ML 100 ML VIAL. IART ONE (13:00)
[2016-10-10] MEDS ORDERED: MIDAZOLAM HCL/PF 5 MG/5 ML VIAL. IV ONE (13:00)
[2016-10-10] MEDS ORDERED: fentaNYL PF VIAL 250 MCG/5 ML VIAL IV ONE (13:00)
[2016-10-10] MEDS: VANCOMYCIN PER PHARMACY MC PRN (13:43)
[2016-10-10] MEDS: GENTAMICIN PER PHARMACY. MC PRN (13:46)
--- NOTE | 2016-10-10 14:03 | PDOC ---
Provider Note Provider Note Vascular Surgery: Patient was in IR, and will follow-up with the angiogram for any additional recommendations. ANITHA ROUSSEAU MD Oct 10, 2016 14:03
[2016-10-10] MEDS ORDERED: HEPARIN for IV BOLUS 10,000 UNIT/10 ML VIAL. ONE (14:52)
[2016-10-10] MEDS ORDERED: HEPARIN for IV BOLUS 10,000 UNIT/10 ML VIAL. IV ONE (14:55)
[2016-10-10] MEDS: FLUCONAZOLE 100 MG TABLET. PO SCH (16:00)
--- NOTE | 2016-10-10 17:03 | PDOC ---
MODERATE SEDATION ASSESSMENT RISKS/ALTERNATIVES Risks/Alternatives Risks and alternatives of this type of sedation and procedure discussed with: RISK/ALTERNATIVES: Patient H & P ON CHART H & P H & P on chart and reviewed for co-morbid conditions and appropriate labs. H&P ON CHART: Yes STATUS PREG STATUS ASSESSED: Yes MEDS/ALLERGIES REVIEWED Meds/Allergies Reviewed Medications and Allergies including time and route of recently administered narcotics and sedatives. MEDS/ALLERGIES REVIEWED: Yes ASA RATING ASA RATING: III AIRWAY ASSESSMENT Airway Assessment Airway patency, oral function limitations, presence of caps, crowns, dentures, partials, and ability to extend neck assessed. AIRWAY ASSESSMENT: Yes MALLAMPATI SCORE MALLAMPATI SCORE: III PRE-SEDATION ASSESSMENT PRE-SEDATION ASSESSMENT: Yes BRYANNA DELATORRE MD Oct 10, 2016 17:03
--- NOTE | 2016-10-10 17:04 | PDOC ---
Exam Muck Farmer Muck Farmer Noy Ict Systems Test Engineer Ict Systems Test Engineer F [place] Pre-Procedure Diagnosis Pre-Procedure Diagnosis 51 YO female with CAD, HTN, DM, ESRD, PAD, abnormal rt leg arterial Doppler U/S , and right great toe osteomyelitis, s/p right great toe partial amputation. Post-Procedure Diagnosis Post-Procedure Diagnosis Same---see radiology report. No AAA. 40% rt LAURIE stenosis---no significant iliac inflow stenosis. Diffuse, extensive calcific rt SFA disease, extending thru mid popliteal artery , including critical mid popliteal lesion. 3 vessel tibial r/o, with significant improvement post SFA-pop intervention: AT shows high grade origin stenosis, and becomes diffusely small in caliber distally thru small caliber DP. Dominant r/o is via large caliber PT, which is widely patent thru plantar arteries at mid-forefoot. Peroneal is widely patent from origin to distal calf. Procedure Performed Procedure Performed Abdominal aortogram with right lower extremity angio. SOCIAL SERVICES ANALYST entire right SFA. SOCIAL SERVICES ANALYST with stent placement (for refractory stenosis) within mid right pop artery. Rescue suction embolectomy at right TPT bifurcation. Type of Anesthesia Type of Anesthesia Local + Mod sedation Estimated Blood Loss EBL: 50 cc Condition of Patient Condition of Patient Stable. No apparent complication. Significantly improved perfusion to right foot s/p right SFA-pop intervention. Disposition Disposition From IR return to 418 for recovery. F/u with HIMS, Ortho, ID, and vascular Surgery. Full report to follow. Rx DAPT for 3 months for pop artery stent. BRYANNA DELATORRE MD Oct 10, 2016 17:04
[2016-10-10] MEDS ORDERED: CLOPIDOGREL BISULFATE 75 MG TABLET PO STA (17:49)
[2016-10-10] MEDS: ATORVASTATIN CALCIUM 40 MG TABLET. PO SCH (21:11)
[2016-10-10] MEDS: FENOFIBRATE,MICRONIZED 134 MG CAPSULE PO SCH (21:12)
[2016-10-10] MEDS: NIACIN ER 500 MG TABLET.ER PO SCH (21:12)
[2016-10-11] MEDS: oxyCODONE/APAP 10/325 1 TAB TABLET PO SCH ×6 (01:12→20:34)
[2016-10-11] MEDS: HYDROmorphone 2 MG/ML VIAL IVP PRN ×7 (01:13→20:35)
[2016-10-11] MEDS: diphenhydrAMINE 50 MG/ML VIAL IVP PRN (01:26)
[2016-10-11 03:40] VITALS: BP 101/52
[2016-10-11] MEDS ORDERED: VANCOMYCIN RANDOM LEVEL. MC ONE (05:00)
[2016-10-11] MEDS ORDERED: GENTAMICIN RANDOM LEVEL. MC ONE (05:00)
[2016-10-11] MEDS: HEPARIN PF for SUB-Q USE 5,000 UNIT/0.5 ML VIAL. SQ SCH ×3 (06:00→21:26)
[2016-10-11 07:01] LABS: CREATININE 5.5 mg/dL (0.6-1.0); GFR 8.2; POTASSIUM 4.4 mmol/L (3.5-5.1)
[2016-10-11] MEDS: INSULIN ASPART 300 UNITS/3 ML INSULN.PEN SQ SCH ×4 (07:30→20:53)
--- NOTE | 2016-10-11 08:03 | PDOC ---
ORTHO PROGRESS NOTES Subjective Partial toe amp, IR stenting of popliteal yesterday. Doing ok, c/o pain. No CP, SOB, N/V, abd complaints Vitals Vital Signs Date Time Temp Pulse Resp B/P (MAP) Pulse Ox O2 Delivery O2 Flow Rate FiO2 10/11/16 07:00 99 Room Air 10/11/16 03:40 97.7 84 18 101/52 (68) 97.7 10/10/16 20:30 2.0 Labs Laboratory Tests Test 10/09/16 08:53 10/09/16 09:00 10/09/16 11:07 10/09/16 16:26 Glucose (Fingerstick) 148 mg/dL (70-99) 159 mg/dL (70-99) 147 mg/dL (70-99) Random Gentamicin Level 5.0 mcg/mL Test 10/09/16 20:32 10/09/16 23:15 10/10/16 07:36 10/10/16 08:30 Glucose (Fingerstick) 269 mg/dL (70-99) 271 mg/dL (70-99) 121 mg/dL (70-99) White Blood Count 6.7 x10^3/uL (4.0-11.0) Red Blood Count 3.32 x10^6/uL (3.50-5.40) Hemoglobin 10.5 g/dL (12.0-15.5) Hematocrit 31.2 % (36.0-47.0) Mean Corpuscular Volume 94 fL (79-100) Mean Corpuscular Hemoglobin 32 pg (25-35) Mean Corpuscular Hemoglobin Concent 34 g/dL (31-37) Red Cell Distribution Width 13.9 % (11.5-14.5) Platelet Count 228 x10^3/uL (140-400) Neutrophils (%) (Auto) 58 % (31-73) Lymphocytes (%) (Auto) 24 % (24-48) Monocytes (%) (Auto) 11 % (0-9) Eosinophils (%) (Auto) 6 % (0-3) Basophils (%) (Auto) 1 % (0-3) Neutrophils # (Auto) 3.9 x10^3uL (1.8-7.7) Lymphocytes # (Auto) 1.6 x10^3/uL (1.0-4.8) Monocytes # (Auto) 0.8 x10^3/uL (0.0-1.1) Eosinophils # (Auto) 0.4 x10^3/uL (0.0-0.7) Basophils # (Auto) 0.1 x10^3/uL (0.0-0.2) Sodium Level 139 mmol/L (136-145) Potassium Level 4.4 mmol/L (3.5-5.1) Chloride Level 98 mmol/L (98-107) Carbon Dioxide Level 31 mmol/L (21-32) Anion Gap 10 (6-14) Blood Urea Nitrogen 44 mg/dL (7-20) Creatinine 4.7 mg/dL (0.6-1.0) Estimated GFR (Cockcroft-Gault) 9.8 Glucose Level 118 mg/dL (70-99) Calcium Level 8.2 mg/dL (8.5-10.1) Test 10/10/16 12:37 10/10/16 20:56 10/10/16 21:35 10/11/16 06:20 Glucose (Fingerstick) 94 mg/dL (70-99) 64 mg/dL (70-99) 75 mg/dL (70-99) Sodium Level 137 mmol/L (136-145) Potassium Level 4.4 mmol/L (3.5-5.1) Chloride Level 98 mmol/L (98-107) Carbon Dioxide Level 28 mmol/L (21-32) Anion Gap 11 (6-14) Blood Urea Nitrogen 51 mg/dL (7-20) Creatinine 5.5 mg/dL (0.6-1.0) Estimated GFR (Cockcroft-Gault) 8.2 Glucose Level 82 mg/dL (70-99) Calcium Level 8.0 mg/dL (8.5-10.1) Random Gentamicin Level 1.5 mcg/mL Random Vancomycin Level 16.1 mcg/mL Laboratory Tests Test 10/10/16 08:30 10/10/16 12:37 10/10/16 20:56 10/10/16 21:35 White Blood Count 6.7 x10^3/uL (4.0-11.0) Red Blood Count 3.32 x10^6/uL (3.50-5.40) Hemoglobin 10.5 g/dL (12.0-15.5) Hematocrit 31.2 % (36.0-47.0) Mean Corpuscular Volume 94 fL (79-100) Mean Corpuscular Hemoglobin 32 pg (25-35) Mean Corpuscular Hemoglobin Concent 34 g/dL (31-37) Red Cell Distribution Width 13.9 % (11.5-14.5) Platelet Count 228 x10^3/uL (140-400) Neutrophils (%) (Auto) 58 % (31-73) Lymphocytes (%) (Auto) 24 % (24-48) Monocytes (%) (Auto) 11 % (0-9) Eosinophils (%) (Auto) 6 % (0-3) Basophils (%) (Auto) 1 % (0-3) Neutrophils # (Auto) 3.9 x10^3uL (1.8-7.7) Lymphocytes # (Auto) 1.6 x10^3/uL (1.0-4.8) Monocytes # (Auto) 0.8 x10^3/uL (0.0-1.1) Eosinophils # (Auto) 0.4 x10^3/uL (0.0-0.7) Basophils # (Auto) 0.1 x10^3/uL (0.0-0.2) Sodium Level 139 mmol/L (136-145) Potassium Level 4.4 mmol/L (3.5-5.1) Chloride Level 98 mmol/L (98-107) Carbon Dioxide Level 31 mmol/L (21-32) Anion Gap 10 (6-14) Blood Urea Nitrogen 44 mg/dL (7-20) Creatinine 4.7 mg/dL (0.6-1.0) Estimated GFR (Cockcroft-Gault) 9.8 Glucose Level 118 mg/dL (70-99) Calcium Level 8.2 mg/dL (8.5-10.1) Glucose (Fingerstick) 94 mg/dL (70-99) 64 mg/dL (70-99) 75 mg/dL (70-99) Test 10/11/16 06:20 Sodium Level 137 mmol/L (136-145) Potassium Level 4.4 mmol/L (3.5-5.1) Chloride Level 98 mmol/L (98-107) Carbon Dioxide Level 28 mmol/L (21-32) Anion Gap 11 (6-14) Blood Urea Nitrogen 51 mg/dL (7-20) Creatinine 5.5 mg/dL (0.6-1.0) Estimated GFR (Cockcroft-Gault) 8.2 Glucose Level 82 mg/dL (70-99) Calcium Level 8.0 mg/dL (8.5-10.1) Random Gentamicin Level 1.5 mcg/mL Random Vancomycin Level 16.1 mcg/mL Notes A and A in dialysis RLE: dressing intact, clean and dry no new wounds Assessment and Plan will f/u on Cxs dressing change tomorrow Senokot BID increase UZMA Gutierrez II, MD Oct 11, 2016 08:03
[2016-10-11] MEDS ORDERED: IV NORMAL SALINE 1000ML BAG 1,000 ML IV PRN (08:14)
[2016-10-11] MEDS ORDERED: DIALYSIS PATIENT. MC PRN ×2 (08:15)
[2016-10-11] MEDS ORDERED: SENNOSIDES/DOCUSATE 8.6/50MG TABLET. PO PRN (08:15)
[2016-10-11 08:18] LABS: BASO # 0.1 x10^3/uL (0.0-0.2); BASO % 1 % (0-3); EOS % 5 % (0-3); HEMATOCRIT 29.7 % (36.0-47.0); HEMOGLOBIN 9.9 g/dL (12.0-15.5); LYMPH # 1.8 x10^3/uL (1.0-4.8); LYMPH % 24 % (24-48); MEAN CORPUSCULAR HEMOGLOBIN 31 pg (25-35); MEAN CORPUSCULAR HGB CONC 33 g/dL (31-37); MEAN CORPUSCULAR VOLUME 95 fL (79-100); MONO % 10 % (0-9); NEUT % 60 % (31-73); PLATELET COUNT 239 x10^3/uL (140-400); RED BLOOD COUNT 3.14 x10^6/uL (3.50-5.40); RED CELL DISTRIBUTION WIDTH 14.2 % (11.5-14.5); WHITE BLOOD COUNT 7.3 x10^3/uL (4.0-11.0)
[2016-10-11] MEDS: GENTAMICIN PER PHARMACY. MC PRN (08:26)
[2016-10-11] MEDS: FUROSEMIDE 80 MG TABLET. PO SCH ×2 (09:00→13:28)
--- NOTE | 2016-10-11 10:33 | PDOC ---
Renal-Progress Notes Subjective Notes Notes NOTHING NEW History of Present Illness Hx of present illness STABLE Vitals Vitals Vital Signs Date Time Temp Pulse Resp B/P (MAP) Pulse Ox O2 Delivery O2 Flow Rate FiO2 10/11/16 09:46 99 Nasal Cannula 2.0 10/11/16 03:40 97.7 84 18 101/52 (68) 97.7 Weight Weight [ ] I.O. Intake and Output Intake and Output 10/11/16 07:00 Intake Total 870 ml Output Total 0 ml Balance 870 ml Intake Oral 870 ml Output Urine Total 0 ml Labs Labs Laboratory Tests Test 10/10/16 12:37 10/10/16 20:56 10/10/16 21:35 10/11/16 06:20 Glucose (Fingerstick) 94 mg/dL (70-99) 64 mg/dL (70-99) 75 mg/dL (70-99) White Blood Count 7.3 x10^3/uL (4.0-11.0) Red Blood Count 3.14 x10^6/uL (3.50-5.40) Hemoglobin 9.9 g/dL (12.0-15.5) Hematocrit 29.7 % (36.0-47.0) Mean Corpuscular Volume 95 fL (79-100) Mean Corpuscular Hemoglobin 31 pg (25-35) Mean Corpuscular Hemoglobin Concent 33 g/dL (31-37) Red Cell Distribution Width 14.2 % (11.5-14.5) Platelet Count 239 x10^3/uL (140-400) Neutrophils (%) (Auto) 60 % (31-73) Lymphocytes (%) (Auto) 24 % (24-48) Monocytes (%) (Auto) 10 % (0-9) Eosinophils (%) (Auto) 5 % (0-3) Basophils (%) (Auto) 1 % (0-3) Neutrophils # (Auto) 4.3 x10^3uL (1.8-7.7) Lymphocytes # (Auto) 1.8 x10^3/uL (1.0-4.8) Monocytes # (Auto) 0.7 x10^3/uL (0.0-1.1) Eosinophils # (Auto) 0.4 x10^3/uL (0.0-0.7) Basophils # (Auto) 0.1 x10^3/uL (0.0-0.2) Sodium Level 137 mmol/L (136-145) Potassium Level 4.4 mmol/L (3.5-5.1) Chloride Level 98 mmol/L (98-107) Carbon Dioxide Level 28 mmol/L (21-32) Anion Gap 11 (6-14) Blood Urea Nitrogen 51 mg/dL (7-20) Creatinine 5.5 mg/dL (0.6-1.0) Estimated GFR (Cockcroft-Gault) 8.2 Glucose Level 82 mg/dL (70-99) Calcium Level 8.0 mg/dL (8.5-10.1) Random Gentamicin Level 1.5 mcg/mL Random Vancomycin Level 16.1 mcg/mL Micro Micro Microbiology 10/08/16 Blood Culture - Preliminary, Resulted NO GROWTH AFTER 2 DAYS 10/09/16 Urine Culture - Preliminary, Resulted 10/09/16 Urine Culture Result 1 (ROSALIND) - Preliminary, Resulted Review of Systems Constitutional: yes: weakness, alert, oriented Pulmonary: Yes no symptom reported Cardiovascular: Yes no symptom reported Gastrointestional: Yes: no symptom reported Musculoskeletal: Yes: muscle stiffness Skin: Yes no symptom reported Physical Exam General Appearance: no apparent distress Skin: warm Respiratory: bilateral CTA Heart: S1S2 Abdomen: soft Extremities: atrophy Neurology: alert Assessment Assessment IMP DM II HTN ANEMIA TOE OSTEO ESRD PLAN WOUND CARE ANTIBIOTICS HD TODAY UF TO CHARLY VALDEZ MD Oct 11, 2016 10:33
[2016-10-11] MEDS: CLOPIDOGREL BISULFATE 75 MG TABLET PO SCH (11:34)
[2016-10-11] MEDS: ASPIRIN 325 MG TABLET PO SCH (11:34)
[2016-10-11] MEDS: FOLIC/VIT B COMP W-C (RENAL) TABLET. PO SCH (11:34)
[2016-10-11] MEDS: valACYclovir 500 MG TABLET. PO SCH (11:34)
[2016-10-11] MEDS: diphenhydrAMINE HCL 25 MG CAPSULE PO SCH ×3 (11:35→20:34)
[2016-10-11] MEDS: CARVEDILOL 12.5 MG TABLET. PO SCH ×2 (11:35→16:58)
[2016-10-11] MEDS: MORPHINE ER 15 MG TABLET.ER PO SCH ×2 (11:35→20:34)
[2016-10-11] MEDS: SEVELAMER CARBONATE 800 MG TABLET. PO SCH ×3 (11:35→16:58)
[2016-10-11] MEDS ORDERED: NORMAL SALINE IV ONE (12:00)
[2016-10-11] MEDS ORDERED: GENTAMICIN SULFATE IV ONE (12:00)
--- NOTE | 2016-10-11 12:08 | PDOC ---
PROGRESS NOTES Chief Complaint Chief Complaint 1. R toe wound infection with h/o osteomyelitis post amputation 2 and 3rd toes, + right great toe osteomyelitis 2. ESRD on HD TTHS 3. AOCD 4. Left BKA 5. HX CABG 6. Left ear swelling and nape rash recently on cefazolin 7. Allergy to Zosyn and meropnemen with hemarrhagic rash 8. Indwelling left chest Central line 9. dm2 on low dose insulin 10. low Albumin with ESRD 11. possible PAD PLAN: FU WITH ID, ON several abx per ID SSI cont home Meds vascular following cont HD DVT prophylaxis. pain control PT/OT Labs reviewed. History of Present Illness History of Present Illness sitting no acute events no fever Vitals Vitals Vital Signs Date Time Temp Pulse Resp B/P (MAP) Pulse Ox O2 Delivery O2 Flow Rate FiO2 10/11/16 11:35 99 Nasal Cannula 2.0 10/11/16 11:35 91 110/65 10/11/16 03:40 97.7 18 97.7 Physical Exam Physical Exam left ear, left neck has some rash with either bacteria infection or blisters, pain, tender left leg BKA right great toe has a open ulcer, non healing, 2, 3rd toes post amputation General: Alert, Oriented X3 Heart: Regular rate, Normal S1, Normal S2 Lungs: Clear Abdomen: Normal bowel sounds, Soft, No tenderness Extremities: No edema, Other (palpable bilateral femoral arteries, no palpable popliteal on the right or palpable pedal pulses on the right) Skin: Other (erythema around the right 1st toe, no purulent drainage) Labs LABS Laboratory Tests Test 10/10/16 12:37 10/10/16 20:56 10/10/16 21:35 10/11/16 06:20 Glucose (Fingerstick) 94 mg/dL (70-99) 64 mg/dL (70-99) 75 mg/dL (70-99) White Blood Count 7.3 x10^3/uL (4.0-11.0) Red Blood Count 3.14 x10^6/uL (3.50-5.40) Hemoglobin 9.9 g/dL (12.0-15.5) Hematocrit 29.7 % (36.0-47.0) Mean Corpuscular Volume 95 fL (79-100) Mean Corpuscular Hemoglobin 31 pg (25-35) Mean Corpuscular Hemoglobin Concent 33 g/dL (31-37) Red Cell Distribution Width 14.2 % (11.5-14.5) Platelet Count 239 x10^3/uL (140-400) Neutrophils (%) (Auto) 60 % (31-73) Lymphocytes (%) (Auto) 24 % (24-48) Monocytes (%) (Auto) 10 % (0-9) Eosinophils (%) (Auto) 5 % (0-3) Basophils (%) (Auto) 1 % (0-3) Neutrophils # (Auto) 4.3 x10^3uL (1.8-7.7) Lymphocytes # (Auto) 1.8 x10^3/uL (1.0-4.8) Monocytes # (Auto) 0.7 x10^3/uL (0.0-1.1) Eosinophils # (Auto) 0.4 x10^3/uL (0.0-0.7) Basophils # (Auto) 0.1 x10^3/uL (0.0-0.2) Sodium Level 137 mmol/L (136-145) Potassium Level 4.4 mmol/L (3.5-5.1) Chloride Level 98 mmol/L (98-107) Carbon Dioxide Level 28 mmol/L (21-32) Anion Gap 11 (6-14) Blood Urea Nitrogen 51 mg/dL (7-20) Creatinine 5.5 mg/dL (0.6-1.0) Estimated GFR (Cockcroft-Gault) 8.2 Glucose Level 82 mg/dL (70-99) Calcium Level 8.0 mg/dL (8.5-10.1) Random Gentamicin Level 1.5 mcg/mL Random Vancomycin Level 16.1 mcg/mL Test 10/11/16 11:32 Glucose (Fingerstick) 102 mg/dL (70-99) Comment Review of Relevant I have reviewed the following items bert (where applicable) has been applied. Labs Laboratory Tests Test 10/09/16 16:26 10/09/16 20:32 10/09/16 23:15 10/10/16 07:36 Glucose (Fingerstick) 147 mg/dL (70-99) 269 mg/dL (70-99) 271 mg/dL (70-99) 121 mg/dL (70-99) Test 10/10/16 08:30 10/10/16 12:37 10/10/16 20:56 10/10/16 21:35 White Blood Count 6.7 x10^3/uL (4.0-11.0) Red Blood Count 3.32 x10^6/uL (3.50-5.40) Hemoglobin 10.5 g/dL (12.0-15.5) Hematocrit 31.2 % (36.0-47.0) Mean Corpuscular Volume 94 fL (79-100) Mean Corpuscular Hemoglobin 32 pg (25-35) Mean Corpuscular Hemoglobin Concent 34 g/dL (31-37) Red Cell Distribution Width 13.9 % (11.5-14.5) Platelet Count 228 x10^3/uL (140-400) Neutrophils (%) (Auto) 58 % (31-73) Lymphocytes (%) (Auto) 24 % (24-48) Monocytes (%) (Auto) 11 % (0-9) Eosinophils (%) (Auto) 6 % (0-3) Basophils (%) (Auto) 1 % (0-3) Neutrophils # (Auto) 3.9 x10^3uL (1.8-7.7) Lymphocytes # (Auto) 1.6 x10^3/uL (1.0-4.8) Monocytes # (Auto) 0.8 x10^3/uL (0.0-1.1) Eosinophils # (Auto) 0.4 x10^3/uL (0.0-0.7) Basophils # (Auto) 0.1 x10^3/uL (0.0-0.2) Sodium Level 139 mmol/L (136-145) Potassium Level 4.4 mmol/L (3.5-5.1) Chloride Level 98 mmol/L (98-107) Carbon Dioxide Level 31 mmol/L (21-32) Anion Gap 10 (6-14) Blood Urea Nitrogen 44 mg/dL (7-20) Creatinine 4.7 mg/dL (0.6-1.0) Estimated GFR (Cockcroft-Gault) 9.8 Glucose Level 118 mg/dL (70-99) Calcium Level 8.2 mg/dL (8.5-10.1) Glucose (Fingerstick) 94 mg/dL (70-99) 64 mg/dL (70-99) 75 mg/dL (70-99) Test 10/11/16 06:20 10/11/16 11:32 White Blood Count 7.3 x10^3/uL (4.0-11.0) Red Blood Count 3.14 x10^6/uL (3.50-5.40) Hemoglobin 9.9 g/dL (12.0-15.5) Hematocrit 29.7 % (36.0-47.0) Mean Corpuscular Volume 95 fL (79-100) Mean Corpuscular Hemoglobin 31 pg (25-35) Mean Corpuscular Hemoglobin Concent 33 g/dL (31-37) Red Cell Distribution Width 14.2 % (11.5-14.5) Platelet Count 239 x10^3/uL (140-400) Neutrophils (%) (Auto) 60 % (31-73) Lymphocytes (%) (Auto) 24 % (24-48) Monocytes (%) (Auto) 10 % (0-9) Eosinophils (%) (Auto) 5 % (0-3) Basophils (%) (Auto) 1 % (0-3) Neutrophils # (Auto) 4.3 x10^3uL (1.8-7.7) Lymphocytes # (Auto) 1.8 x10^3/uL (1.0-4.8) Monocytes # (Auto) 0.7 x10^3/uL (0.0-1.1) Eosinophils # (Auto) 0.4 x10^3/uL (0.0-0.7) Basophils # (Auto) 0.1 x10^3/uL (0.0-0.2) Sodium Level 137 mmol/L (136-145) Potassium Level 4.4 mmol/L (3.5-5.1) Chloride Level 98 mmol/L (98-107) Carbon Dioxide Level 28 mmol/L (21-32) Anion Gap 11 (6-14) Blood Urea Nitrogen 51 mg/dL (7-20) Creatinine 5.5 mg/dL (0.6-1.0) Estimated GFR (Cockcroft-Gault) 8.2 Glucose Level 82 mg/dL (70-99) Calcium Level 8.0 mg/dL (8.5-10.1) Random Gentamicin Level 1.5 mcg/mL Random Vancomycin Level 16.1 mcg/mL Glucose (Fingerstick) 102 mg/dL (70-99) Laboratory Tests Test 10/10/16 12:37 10/10/16 20:56 10/10/16 21:35 10/11/16 06:20 Glucose (Fingerstick) 94 mg/dL (70-99) 64 mg/dL (70-99) 75 mg/dL (70-99) White Blood Count 7.3 x10^3/uL (4.0-11.0) Red Blood Count 3.14 x10^6/uL (3.50-5.40) Hemoglobin 9.9 g/dL (12.0-15.5) Hematocrit 29.7 % (36.0-47.0) Mean Corpuscular Volume 95 fL (79-100) Mean Corpuscular Hemoglobin 31 pg (25-35) Mean Corpuscular Hemoglobin Concent 33 g/dL (31-37) Red Cell Distribution Width 14.2 % (11.5-14.5) Platelet Count 239 x10^3/uL (140-400) Neutrophils (%) (Auto) 60 % (31-73) Lymphocytes (%) (Auto) 24 % (24-48) Monocytes (%) (Auto) 10 % (0-9) Eosinophils (%) (Auto) 5 % (0-3) Basophils (%) (Auto) 1 % (0-3) Neutrophils # (Auto) 4.3 x10^3uL (1.8-7.7) Lymphocytes # (Auto) 1.8 x10^3/uL (1.0-4.8) Monocytes # (Auto) 0.7 x10^3/uL (0.0-1.1) Eosinophils # (Auto) 0.4 x10^3/uL (0.0-0.7) Basophils # (Auto) 0.1 x10^3/uL (0.0-0.2) Sodium Level 137 mmol/L (136-145) Potassium Level 4.4 mmol/L (3.5-5.1) Chloride Level 98 mmol/L (98-107) Carbon Dioxide Level 28 mmol/L (21-32) Anion Gap 11 (6-14) Blood Urea Nitrogen 51 mg/dL (7-20) Creatinine 5.5 mg/dL (0.6-1.0) Estimated GFR (Cockcroft-Gault) 8.2 Glucose Level 82 mg/dL (70-99) Calcium Level 8.0 mg/dL (8.5-10.1) Random Gentamicin Level 1.5 mcg/mL Random Vancomycin Level 16.1 mcg/mL Test 10/11/16 11:32 Glucose (Fingerstick) 102 mg/dL (70-99) Microbiology 10/08/16 Blood Culture - Preliminary, Resulted NO GROWTH AFTER 2 DAYS 10/09/16 Urine Culture - Preliminary, Resulted 10/09/16 Urine Culture Result 1 (ROSALIND) - Preliminary, Resulted Medications Current Medications Vancomycin HCl (Vanco Per Pharmacy) 1 each PRN DAILY PRN MC SEE COMMENTS Last administered on 10/10/16 13:43; Start 10/08/16 at 20:15 Gentamicin Sulfate 1 each PRN DAILY PRN MC SEE COMMENTS Last administered on 08:26; Start 10/08/16 at 20:15 Levofloxacin/ Dextrose 100 ml @ 100 mls/hr Q24H IV Last administered on 01:20; Start 10/08/16 at 21:00; Stop 10/09/16 at 08:36; Status DC Metronidazole 100 ml @ 100 mls/hr Q12HR IV Last administered on 10/09/16 03: 42; Start 10/08/16 at 21:00; Stop 10/09/16 at 08:36; Status DC Ondansetron HCl (Zofran) 4 mg PRN Q6HRS PRN IV NAUSEA/VOMITING Last administered on 10/10/16 22:01; Start 10/08/16 at 20:15 Acetaminophen (Tylenol) 650 mg PRN Q6HRS PRN PO FEVER; Start 10/08/16 at 20:15 Morphine Sulfate 2 mg PRN Q2HR PRN IV PAIN; Start 10/08/16 at 20:15; Stop 10/08 at 21:26; Status DC Acetaminophen/ Hydrocodone Bitart (Lortab 5/325) 1 tab PRN Q4HRS PRN PO MODERATE TO SEVERE PAIN; Start 10/08/16 at 20:15 Fentanyl Citrate (Fentanyl 2ml Vial) 50 mcg PRN Q2HR PRN IV PAIN Last administered on 10/09/16 20:28; Start 10/08/16 at 21:30 Aspirin (Anthony Aspirin) 325 mg DAILY PO Last administered on 10/11/16 11:34; Start 10/09/16 at 09:00 Carvedilol (Coreg) 12.5 mg BIDWMEALS PO Last administered on 10/11/16 11:35; Start 10/09/16 at 08:00 Docusate Sodium (Colace) 100 mg PRN BID PRN PO CONSTIPATION; Start 10/08/16 at 21:30; Stop 10/11/16 at 08:05; Status DC Fluconazole (Diflucan) 100 mg DAILY16 PO Last administered on 10/09/16 16:46; Start 10/09/16 at 16:00 Vitamin B Complex/ Vitamin C (Melly-Shabbir) 1 tab DAILY PO Last administered on 11:34; Start 10/09/16 at 09:00 Furosemide (Lasix) 80 mg BID92 PO ; Start 10/09/16 at 09:00 Morphine Sulfate (Ms Contin) 15 mg BID PO ; Start 10/09/16 at 21:30; Stop at 21:30; Status DC Nitroglycerin (Nitrostat) 0.4 mg PRN Q5MIN PRN SL CHEST PAIN; Start 10/08/16 at 21:30 Oxycodone/ Acetaminophen (Percocet 10/325) 1 tab Q4HRS PO Last administered on 10/11/16 11:34; Start 10/09/16 at 00:00 Sevelamer Carbonate (Renvela) 800 mg TIDWMEALS PO Last administered on 11:35; Start 10/09/16 at 08:00 Tramadol HCl (Ultram) 50 mg PRN Q6HRS PRN PO MILD TO MODERATE PAIN; Start 10/08 at 21:30 Atorvastatin Calcium (Lipitor) 80 mg QHS PO Last administered on 10/10/16 21: 11; Start 10/09/16 at 21:00 Fenofibrate (Lofibra) 134 mg QHS PO Last administered on 10/10/16 21:12; Start 10/08/16 at 22:00 Niacin (Slo-Niacin) 500 mg QHS PO Last administered on 10/10/16 21:12; Start 10/09/16 at 21:00 Non-Formulary Medication 210 mg TIDWMEALS PO ; Start 10/09/16 at 08:00; Status UNV Diphenhydramine HCl (Benadryl) 25 mg PRN Q6HRS PRN IVP ITCHING Last administered on 10/11/16 01:26; Start 10/08/16 at 21:30 Diphenhydramine HCl (Benadryl) 25 mg TID PO ; Start 10/08/16 at 21:30; Status Cancel Heparin Sodium (Porcine) (Heparin Sq) 5,000 unit Q8HRS SQ Last administered on 10/09/16 16:52; Start 10/08/16 at 22:00 Vancomycin HCl 2 gm/Sodium Chloride 500 ml @ 250 mls/hr 1X ONCE IV Last administered on 10/09/16 00:09; Start 10/08/16 at 22:00; Stop 10/08/16 at 23:59 ; Status DC Morphine Sulfate (Ms Contin) 15 mg BID PO Last administered on 10/11/16 11:35 ; Start 10/08/16 at 22:00 Diphenhydramine HCl (Benadryl) 50 mg TID PO Last administered on 10/11/16 11: 35; Start 10/08/16 at 22:00 Gentamicin Sulfate 170 mg/ Sodium Chloride 104.25 ml @ 104.25 mls/hr 1X ONCE IV ; Start 10/08/16 at 22:00; Stop 10/08/16 at 22:59; Status Cancel Gentamicin Sulfate 145 mg/ Sodium Chloride 103.625 ml @ 103.625 mls/hr 1X ONCE IV Last administered on 10/08/16 22:51; Start 10/08/16 at 23:00; Stop at 23:59; Status DC Gentamicin Sulfate 1 each 1X ONCE MC Last administered on 10/09/16 09:00; Start 10/09/16 at 09:00; Stop 10/09/16 at 09:01; Status DC Vancomycin HCl 1 each 1X ONCE MC Last administered on 10/11/16 05:00; Start 10/11/16 at 05:00; Stop 10/11/16 at 05:01; Status DC Diphenhydramine HCl (Benadryl) 50 mg 1X ONCE PO Last administered on 03:55; Start 10/09/16 at 04:00; Stop 10/09/16 at 04:01; Status DC Levofloxacin/ Dextrose 100 ml @ 100 mls/hr Q48H IV Last administered on 21:10; Start 10/10/16 at 21:00 Metronidazole 100 ml @ 100 mls/hr Q8HRS IV Last administered on 10/11/16 06: 24; Start 10/09/16 at 14:00 Insulin Aspart (NovoLOG) 0-9 UNITS TIDWMEALS SQ ; Start 10/09/16 at 12:00; Stop 10/09/16 at 21:16; Status DC Dextrose (Dextrose 50%-Water Syringe) 12.5 gm PRN Q15MIN PRN IV SEE COMMENTS; Start 10/09/16 at 09:30 Sodium Chloride 1,000 ml @ 1,000 mls/hr Q1H PRN IV hypotension; Start 10/09/16 at 11:48; Stop 10/09/16 at 17:47; Status DC Albumin Human 200 ml @ 200 mls/hr 1X PRN PRN IV Hypotension; Start 10/09/16 at 12:00; Stop 10/09/16 at 17:59; Status DC Diphenhydramine HCl (Benadryl) 25 mg 1X PRN PRN IV ITCHING; Start 10/09/16 at 12:00; Stop 10/10/16 at 11:59; Status DC Diphenhydramine HCl (Benadryl) 25 mg 1X PRN PRN IV ITCHING; Start 10/09/16 at 12:00; Stop 10/10/16 at 11:59; Status DC Sodium Chloride 1,000 ml @ 400 mls/hr Q2H30M PRN IV PATENCY; Start 10/09/16 at 11:48; Stop 10/09/16 at 23:47; Status DC Info (PHARMACY MONITORING -- do not chart) 1 each PRN DAILY PRN MC SEE COMMENTS ; Start 10/09/16 at 12:00 Lidocaine HCl (Xylocaine-Mpf 1% Vial) 0.5 ml 1X STAT ID ; Start 10/09/16 at 12: 06; Stop 10/09/16 at 12:14; Status DC Insulin Aspart (NovoLOG) 0-9 UNITS QIDACHS SQ ; Start 10/10/16 at 07:30; Stop at 07:30; Status DC Insulin Detemir (Levemir) 4 units QHS SQ ; Start 10/09/16 at 21:30; Stop at 11:49; Status DC Morphine Sulfate 4 mg PRN Q3HRS PRN IV PAIN Last administered on 10/10/16 21: 13; Start 10/09/16 at 23:00 Insulin Aspart (NovoLOG) 0-9 UNITS QIDACHS SQ Last administered on 10/09/16 23 :21; Start 10/09/16 at 07:30; Stop 10/09/16 at 23:45; Status DC Insulin Aspart (NovoLOG) 0-9 UNITS QIDACHS SQ ; Start 10/09/16 at 23:55 Lidocaine HCl (Xylocaine-Mpf 1% Vial) 2 ml STK-MED ONCE .ROUTE ; Start 10/09/16 at 12:00; Stop 10/10/16 at 08:27; Status DC Valacyclovir HCl (Valtrex) 500 mg DAILY PO Last administered on 10/11/16 11:34 ; Start 10/10/16 at 09:00 Alteplase, Recombinant (Cathflo) 2 mg 1X ONCE INT CAT Last administered on 10:18; Start 10/10/16 at 10:00; Stop 10/10/16 at 10:01; Status DC Bupivacaine HCl (Sensorcaine Mpf 0.5%) 30 ml STK-MED ONCE .ROUTE ; Start at 10:29; Stop 10/10/16 at 10:30; Status DC Lidocaine HCl 20 ml STK-MED ONCE .ROUTE ; Start 10/10/16 at 10:29; Stop at 10:30; Status DC Fentanyl Citrate (Fentanyl 2ml Vial) 50 mcg PRN Q5MIN PRN IV Acute Pain Last administered on 10/10/16 12:51; Start 10/10/16 at 11:00; Stop 10/11/16 at 10:59 ; Status DC Morphine Sulfate 4 mg PRN Q10MIN PRN IV Moderate Pain Last administered on 10/10 12:56; Start 10/10/16 at 11:00; Stop 10/11/16 at 10:59; Status DC Hydromorphone HCl (Dilaudid) 0.4 mg PRN Q10MIN PRN IV Moderate to severe pain Last administered on 10/11/16 09:04; Start 10/10/16 at 11:00; Stop 10/11/16 at 10:59; Status DC Meperidine HCl (Demerol) 12.5 mg PRN Q5MIN PRN IV SHIVERING; Start 10/10/16 at 11:00; Stop 10/11/16 at 10:59; Status DC Prochlorperazine Edisylate (Compazine) 5 mg PRN Q6HRS PRN IV Nausea/Vomiting, 1st Choice; Start 10/10/16 at 11:00; Stop 10/11/16 at 10:59; Status DC Diphenhydramine HCl (Benadryl) 12.5 mg PRN Q2HR PRN IV ITCHING; Start 10/10/16 at 11:00; Stop 10/11/16 at 10:59; Status DC Midazolam HCl (Versed) 2 mg PRN 1X PRN IV PRIOR TO PROCEDURE; Start 10/10/16 at 11:00; Stop 10/11/16 at 10:59; Status DC Midazolam HCl (Versed) 1 mg PRN 1X PRN IV PRIOR TO PROCEDURE; Start 10/10/16 at 11:00; Stop 10/11/16 at 10:59; Status DC Fentanyl Citrate (Fentanyl 2ml Vial) 25 mcg PRN Q5MIN PRN IV X 2 DOSES FOR PAIN ; Start 10/10/16 at 11:00; Stop 10/11/16 at 10:59; Status DC Fentanyl Citrate (Fentanyl 2ml Vial) 50 mcg PRN Q5MIN PRN IV X 2 DOSES FOR PAIN Last administered on 10/10/16t 12:34; Start 10/10/16 at 11:00; Stop at 10:59; Status DC Ringer's Solution 1,000 ml @ 125 mls/hr Q8H IV ; Start 10/10/16 at 10:51; Stop 10/10/16 at 22:50; Status DC Lidocaine HCl 2 ml 1X PRN PRN ID IV START; Start 10/10/16 at 11:00; Stop at 10:59; Status DC Sodium Chloride 1,000 ml @ 0 mls/hr 1X ONCE IV ; Start 10/10/16 at 11:00; Stop 10/10/16 at 11:01; Status DC Lidocaine HCl 20 ml STK-MED ONCE .ROUTE ; Start 10/10/16 at 10:58; Stop at 10:59; Status DC Propofol 50 ml @ As Directed STK-MED ONCE IV ; Start 10/10/16 at 11:39; Stop at 11:40; Status DC Iodixanol (Visipaque 320) 50 ml STK-MED ONCE .ROUTE ; Start 10/10/16 at 12:51; Stop 10/10/16 at 12:52; Status DC Iohexol (Omnipaque 300 Mg/ml) 100 ml STK-MED ONCE .ROUTE ; Start 10/10/16 at 12: 51; Stop 10/10/16 at 12:52; Status DC Lidocaine/Sodium Bicarbonate (Buffered Lidocaine 1%) 20 ml STK-MED ONCE IJ ; Start 10/10/16 at 12:51; Stop 10/10/16 at 12:52; Status DC Midazolam HCl (Versed) 5 mg STK-MED ONCE .ROUTE ; Start 10/10/16 at 12:51; Stop 10/10/16 at 12:52; Status DC Fentanyl Citrate (Fentanyl 5ml Vial) 250 mcg STK-MED ONCE .ROUTE ; Start at 12:51; Stop 10/10/16 at 12:52; Status DC Heparin Sodium/ Sodium Chloride 1,500 ml @ As Directed STK-MED ONCE .ROUTE ; Start 10/10/16 at 12:52; Stop 10/10/16 at 12:53; Status DC Iodixanol (Visipaque 320) 100 ml STK-MED ONCE .ROUTE ; Start 10/10/16 at 12:52; Stop 10/10/16 at 12:53; Status DC Heparin Sodium/ Sodium Chloride 2,000 unit 1X ONCE IART Last administered on t 16:39; Start 10/10/16 at 13:00; Stop 10/10/16 at 13:01; Status DC Heparin Sodium/ Sodium Chloride 1,000 unit 1X ONCE IART Last administered on t 16:39; Start 10/10/16 at 13:00; Stop 10/10/16 at 13:01; Status DC Lidocaine/Sodium Bicarbonate (Buffered Lidocaine 1%) 20 ml 1X ONCE IJ Last administered on 10/10/16 16:40; Start 10/10/16 at 13:00; Stop 10/10/16 at 13:01 ; Status DC Midazolam HCl (Versed) 5 mg 1X ONCE IV Last administered on 10/10/16 16:40; Start 10/10/16 at 13:00; Stop 10/10/16 at 13:01; Status DC Fentanyl Citrate (Fentanyl 5ml Vial) 150 mcg 1X ONCE IV Last administered on 16:43; Start 10/10/16 at 13:00; Stop 10/10/16 at 13:01; Status DC Iohexol (Omnipaque 300 Mg/ml) 100 ml 1X ONCE IART Last administered on 16:39; Start 10/10/16 at 13:00; Stop 10/10/16 at 13:01; Status DC Iodixanol (Visipaque 320) 100 ml 1X ONCE IART Last administered on 10/10/16 16:39; Start 10/10/16 at 13:00; Stop 10/10/16 at 13:01; Status DC Info (Do NOT chart on this entry -- for MONITORING) 1 each PRN DAILY PRN MC SEE COMMENTS; Start 10/10/16 at 13:00; Stop 10/12/16 at 12:59 Gentamicin Sulfate 1 each 1X ONCE MC Last administered on 10/11/16 05:00; Start 10/11/16 at 05:00; Stop 10/11/16 at 05:01; Status DC Heparin Sodium (Porcine) (Heparin Sodium) 10,000 unit STK-MED ONCE .ROUTE ; Start 10/10/16 at 14:52; Stop 10/10/16 at 14:53; Status DC Heparin Sodium (Porcine) (Heparin Sodium) 5,000 unit 1X ONCE IV Last administered on 10/10/16 16:45; Start 10/10/16 at 14:55; Stop 10/10/16 at 15:02 ; Status DC Clopidogrel Bisulfate (Plavix) 600 mg 1X STAT PO Last administered on 18:40; Start 10/10/16 at 17:49; Stop 10/10/16 at 17:50; Status DC Clopidogrel Bisulfate (Plavix) 75 mg DAILYWBKFT PO Last administered on 11:34; Start 10/11/16 at 08:00; Stop 01/11/17 at 08:00 Hydromorphone HCl (Dilaudid) 0.2 mg PRN Q1HR PRN IVP SEVERE PAIN Last administered on 10/11/16 06:25; Start 10/10/16 at 22:45; Stop 10/11/16 at 08:05 ; Status DC Hydromorphone HCl (Dilaudid) 0.4 mg PRN Q1HR PRN IVP PAIN; Start 10/11/16 at 08 :15 Senna/Docusate Sodium (Senna Plus) 1 tab PRN BID PRN PO CONSTIPATION; Start at 08:15 Sodium Chloride 1,000 ml @ 1,000 mls/hr Q1H PRN IV hypotension; Start 10/11/16 at 08:14; Stop 10/11/16 at 14:13 Info (PHARMACY MONITORING -- do not chart) 1 each PRN DAILY PRN MC SEE COMMENTS ; Start 10/11/16 at 08:15; Status Cancel Info (PHARMACY MONITORING -- do not chart) 1 each PRN DAILY PRN MC SEE COMMENTS ; Start 10/11/16 at 08:15; Status Cancel Gentamicin Sulfate 145 mg/ Sodium Chloride 103.625 ml @ 103.625 mls/hr 1X ONCE IV Last administered on 10/11/16 11:36; Start 10/11/16 at 12:00; Stop at 12:59 Active Scripts Active Percocet 10-325 Mg Tablet (Oxycodone/Acetaminophen) 1 Each Tablet 1 Tab PO Q4HRS Fluconazole 100 Mg Tablet 100 Mg PO DAILY16 Renvela (Sevelamer Carbonate) 800 Mg Tablet 800 Mg PO TIDWMEALS Morphine Sulfate Er (Morphine Sulfate) 15 Mg Tablet.er 15 Mg PO BID Reported Zofran (Ondansetron Hcl) 4 Mg Tablet 4 Mg PO Q6-8HRS PRN Lantus Solostar (Insulin Glargine,Hum.rec.anlog) 100 Unit/1 Ml Insuln.pen 10 Unit SQ QHS [auryxia] 210 Mg PO TIDWMEALS Carvedilol 12.5 Mg Tablet 1 Tab PO DAILY Carvedilol 12.5 Mg Tablet 1 Tab PO BID Nephro-Shabbir Tablet (Folic Acid/Vitamin B Comp W-C) 0.8 Mg Tablet 1 Tab PO DAILY Fluconazole 100 Mg Tablet 150 Mg PO PRN PRN Tramadol Hcl 50 Mg Tablet 50 Mg PO Q6H PRN Tricor (Fenofibrate Nanocrystallized) 145 Mg Tablet 1 Tab PO HS Lipitor (Atorvastatin Calcium) 80 Mg Tablet 80 Mg PO HS Niacin 500 Mg Tablet 500 Mg PO HS Novolog (Insulin Aspart) 100 Unit/1 Ml Cartridge 0 SQ TIDAC sliding scale Aspirin 325 Mg Tablet 325 Mg PO DAILY Furosemide 80 Mg Tablet 80 Mg PO BID Docusate Sodium 100 Mg Capsule 1 Cap PO PRN PRN Nitrostat (Nitroglycerin) 0.4 Mg Tab.subl 0.4 Mg SL PRN Q5MIN PRN Take as needed for chest pain Vitals/I & O Vital Sign - Last 24 Hours 10/10/16 10/10/16 10/10/16 10/10/16 12:22 12:34 12:35 12:50 Temp 98.3 98.3 98.3 98.3 Pulse 79 74 74 Resp 04 07 12 12 B/P (MAP) 107/56 96/52 93/52 Pulse Ox 96 100 99 100 O2 Delivery Nasal Cannula Nasal Cannula Nasal Cannula Nasal Cannula O2 Flow Rate 2 2.0 2 2 10/10/16 10/10/16 10/10/16 10/10/16 12:51 12:56 13:57 16:29 Pulse 90 Resp 12 21 Pulse Ox 100 99 95 O2 Delivery Nasal Cannula Room Air Nasal Cannula O2 Flow Rate 2.0 2.0 10/10/16 10/10/16 10/10/16 10/10/16 16:43 17:30 17:33 17:38 Temp 97.5 97.5 97.5 97.5 97.5 97.5 Pulse 84 85 81 Resp 16 B/P (MAP) 106/54 (71) 106/54 (71) 104/51 (68) Pulse Ox 95 97 98 99 O2 Delivery Nasal Cannula Room Air Room Air Room Air 10/10/16 10/10/16 10/10/16 10/10/16 17:53 18:08 18:23 18:38 Temp 97.5 97.5 97.5 97.5 97.5 97.5 97.5 97.5 Pulse 82 82 80 84 Resp 16 16 16 16 B/P (MAP) 106/50 (68) 92/47 (62) 108/52 (70) 112/60 (77) Pulse Ox 99 98 99 99 O2 Delivery Room Air Room Air Room Air Room Air 10/10/16 10/10/16 10/10/16 10/10/16 19:08 19:38 20:30 20:38 Temp 97.5 97.5 97.1 97.5 97.5 97.1 Pulse 85 84 86 Resp 18 17 B/P (MAP) 124/58 (80) 144/65 (91) 144/66 (92) Pulse Ox 99 99 99 O2 Delivery Nasal Cannula Nasal Cannula Nasal Cannula Room Air O2 Flow Rate 2.0 2.0 2.0 10/10/16 10/10/16 10/10/16 10/10/16 21:12 21:13 21:13 21:44 Pulse Ox 99 99 99 99 O2 Delivery Room Air Room Air Room Air Room Air 10/10/16 10/11/16 10/11/16 10/11/16 22:30 01:12 01:13 01:19 Temp 97.1 97.1 Pulse 88 Resp 16 B/P (MAP) 100/51 (67) Pulse Ox 94 99 99 99 O2 Delivery Room Air Room Air Room Air Room Air 10/11/16 10/11/16 10/11/16 10/11/16 02:15 03:40 03:41 06:25 Temp 97.7 97.7 Pulse 84 Resp 18 B/P (MAP) 101/52 (68) Pulse Ox 99 92 99 99 O2 Delivery Room Air Room Air Room Air Room Air 10/11/16 10/11/16 10/11/16 10/11/16 07:00 08:00 09:04 09:46 Pulse Ox 99 99 99 O2 Delivery Room Air Nasal Cannula Nasal Cannula Nasal Cannula O2 Flow Rate 2.0 2.0 2.0 10/11/16 10/11/16 10/11/16 11:34 11:35 11:35 Pulse 91 B/P (MAP) 110/65 Pulse Ox 99 99 O2 Delivery Nasal Cannula Nasal Cannula O2 Flow Rate 2.0 2.0 Intake and Output 10/10/16 10/10/16 10/11/16 15:00 23:00 07:00 Intake Total 120 ml 750 ml Output Total 0 ml 0 ml Balance 120 ml 750 ml BETO CARSON MD Oct 11, 2016 12:07
--- NOTE | 2016-10-11 13:04 | RAD ---
Abdominal aortogram with selective right lower extremity arteriogram Right SFA-popliteal arterial intervention Rescue suction embolectomy at right tibioperoneal trunk bifurcation Indication: 51-year-old female with coronary artery disease, hypertension, diabetes, end-stage renal disease on hemodialysis, PAD with abnormal duplex Doppler ultrasound, and right great toe osteomyelitis, status post partial amputation. Diagnostic arteriogram, with possible intervention to improve perfusion to right foot, has been requested by vascular surgery. Fluoroscopy time: 44.9 minutes Kerma-area Product: 370 Gycm2 Contrast material: 50 cc Omnipaque 300. 90 cc Visipaque 320. Anticoagulation: A total of 8000 is heparin was given throughout the course of arterial intervention. Anesthesia: 181 minutes moderate sedation was provided utilizing a total of 5 mg Versed and 250 mcg fentanyl, IV. The patient was appropriately monitored by a qualified independent observer throughout the time of moderate sedation. Consent: The procedure was explained in its entirety to the patient and/or the patient's designated sales utility representative by a member of the treatment team. This included a discussion of risks and benefits and commonly accepted alternatives to the procedure, as well as expected consequences of no treatment at all. Discussion of risks included, but was not limited to, those that are most frequent and those that are rare, but possibly severe or life-threatening, as well as the possibility of unforeseen complications. Sterility: All elements of maximal sterile barrier technique, hand hygiene, skin preparation, and, if ultrasound was used, sterile ultrasound technique were followed. Procedure: Informed consent was obtained from the patient. He was placed supine on the angiography table. Preliminary ultrasound examination of left groin revealed patency of left common femoral artery, which was documented with a single hard copy ultrasound image. Left groin was then prepped and draped in the usual sterile fashion, utilizing all elements of maximal sterile barrier technique, as described above. Moderate sedation was provided with IV Versed and fentanyl. Using aseptic technique, local anesthesia, direct sterile ultrasound guidance, and the micropuncture system, a 5 Burkinan left common femoral artery sheath was successfully introduced. Abdominal aortogram: A 5 Burkinan Omni Flush catheter was advanced into suprarenal abdominal aorta. Omnipaque 300 was injected and abdominal aortogram DSA images were obtained. Findings: Infrarenal abdominal aorta shows moderate calcific plaquing, without significant stricture, and without aneurysmal dilatation. Renal arteries are bilaterally small, consistent with end-stage renal disease, without significant stenosis. Celiac trunk, SMA, and ALFIE are patent. Oblique pelvis injection: The Omni Flush catheter was withdrawn into terminal aorta, just above bifurcation. Omnipaque 300 was again injected and DSA images were obtained over pelvis in the JT projection. Findings: Proximal segment of right common iliac arteries show smooth narrowing on the order of 30-40 %. There is severe stenosis within proximal right hypogastric artery. Right external iliac artery is widely patent and unremarkable. No significant left common iliac or external iliac artery stenosis is seen. Left hypogastric artery is patent, however, its origin is not well-visualized on this PARISI projection. There is moderate narrowing of distal left common femoral artery. Selective right lower extremity arteriogram: The Omni Flush catheter was advanced across aortic bifurcation over a Glidewire and was initially positioned within distal right external iliac artery. Visipaque was injected and DSA images were obtained over right groin and proximal thigh in multiple projections. The Omni Flush catheter was then exchanged for a Francis Cross catheter, which was, with difficulty, advanced across SFA origin into proximal right SFA. Dilute Visipaque was again injected and DSA images were obtained over mid and distal thigh. The quick cross catheter was then further advanced into proximal right popliteal artery. Dilute Visipaque was again injected and DSA images were obtained from knee through foot. Findings: There is moderate calcific plaquing within right SFA. Despite imaging and multiple obliquities right common femoral artery bifurcation and origins of right SFA and profunda could not be well visualized. However, it was quite difficult to cross origin of right SFA, suggesting high-grade calcific stenosis in that area. Right SFA is otherwise generally small in caliber and diffusely calcific, with multifocal areas of eccentric narrowing, particularly within its distal segment. Proximal and mid segment of right popliteal artery are similarly calcific and small in caliber, with multifocal areas of narrowing, including localized severe to critical stenosis just above patella. Below knee right popliteal artery is small in caliber, without significant narrowing. There is moderate to high-grade narrowing at origin of right anterior tibial artery, which appears normal in caliber at proximal calf, but becomes small in caliber from mid calf through small caliber, but patent dorsalis pedis artery. Right tibioperoneal trunk appears widely patent. Right posterior tibial artery is widely patent from origin to ankle, apart from focal moderate eccentric narrowing approximately 8 cm above ankle joint. There is poor opacification of most distal right posterior tibial artery through plantar vessels at hindfoot, however, distal posterior tibial artery and medial and lateral plantar arteries are briskly opacified and are widely patent on completion DSA imaging obtained after SFA-popliteal arterial intervention, as described below.. Right peroneal artery is widely patent from origin through distal calf. Right SFA-popliteal arterial intervention: Given this patient's chronic right great toe osteomyelitis, balloon angioplasty of right SFA-popliteal arterial segment was considered indicated, particularly at the severe to critical mid popliteal artery lesion and at the presumed, severe, calcific origin right SFA stenosis. The Francis Cross catheter, previously positioned within proximal right popliteal artery, was removed over a [employer] advantage guidewire. The 5 Burkinan left common femoral artery sheath was exchanged for a 6 Burkinan Juan 2 sheath, which was advanced across aortic bifurcation over the advantage wire into contralateral right common femoral artery. Following IV bolus administration of 5000 units heparin, a 0.035 inch quick cross catheter was inserted through the Juan sheath over the advantage wire and was advanced into proximal right popliteal artery. The quick cross catheter/advantage wire combination was then carefully advanced through the diseased mid popliteal artery segment into distal right popliteal artery. The quick cross catheter was then removed over a long grand slam microguidewire. A 3 mm x 120 mm Cordis chocolate COMPUTER GRAPHIC DESIGNER balloon was then advanced through the Ancel sheath over the grand slam wire and was utilized to perform preliminary balloon dilatation of proximal and mid right popliteal artery to a peak pressure of 12 [place] for 4 minutes. The 3 mm chocolate COMPUTER GRAPHIC DESIGNER balloon was then exchanged over the grand slam wire for a 4 mm x 120 mm Cordis chocolate COMPUTER GRAPHIC DESIGNER balloon, which was utilized to perform balloon dilatation of mid and distal right SFA to a peak pressure of 12 [place] for 4 minutes. The 4 mm COMPUTER GRAPHIC DESIGNER balloon was then exchanged over the grand slam wire for a 5 mm x 80 mm Cordis chocolate COMPUTER GRAPHIC DESIGNER balloon which was utilized to perform balloon angioplasty of proximal and mid right SFA to a peak pressure of 10 [place] for 5 minutes. Visipaque was injected through the Juan sheath and post angioplasty DSA images were then obtained. Those images revealed significantly improved caliber of entire right SFA and proximal right popliteal artery, without complicating dissection or thrombosis. However, there was persistent severe, irregular narrowing within mid right popliteal artery. Following IV bolus administration of an additional 2000 units heparin, a 4 mm right 40 mm Cordis chocolate COMPUTER GRAPHIC DESIGNER balloon was advanced through the Ancel sheath over the grand slam wire and was utilized to perform further balloon dilatation of mid right popliteal artery, to a peak pressure of 12 [place] for 4 minutes. The COMPUTER GRAPHIC DESIGNER balloon was then deflated and removed. Visipaque was injected through the Juan sheath and post angioplasty DSA images were obtained. Those images revealed persistent hemodynamically significant stenosis within mid right popliteal artery. Therefore, reluctantly, percutaneous stent placement was considered necessary. A 5 mm Viabahn stent was considered too large. A 6 mm Cordis SMART stent was considered the device of choice, however, the stent was only available in inventory on an 80 cm long shaft, which is too short to reach this residual mid popliteal artery lesion. Therefore, a 7 mm x 40 mm Cordis control Smart stent, which was available on a 120 cm long shaft, was advanced through the Juan sheath over the grand slam wire, and was carefully deployed across mid right popliteal artery utilizing magnification fluoroscopic guidance. Post dilatation of the stent was then performed utilizing a 4 mm x 20 mm Cordis Powerflex COMPUTER GRAPHIC DESIGNER balloon, inflated to a peak pressure of 10 [place]. Post stenting DSA images were then obtained, which revealed brisk widely patent mid popliteal artery, without complicating dissection or thrombosis. However, these completion images revealed inadvertent distal embolization of intraluminal thrombus to right tibioperoneal trunk bifurcation, producing origin right peroneal artery occlusion and subtotal occlusion at origin of right posterior tibial artery. Rescue suction embolectomy was considered necessary. Rescue suction embolectomy: Immediately following identification of embolic disease to right tibioperoneal trunk, an additional 1000 units heparin was given bolus IV. A 6 Burkinan Neuro guide catheter was then inserted through the Juan sheath over the grand slam wire and was advanced to right tibioperoneal trunk bifurcation. Suction embolectomy in that area was then performed, resulting in aspiration of an irregular thrombus. The 6 Burkinan guide catheter was then exchanged over the grand slam wire for the 0.035 inch quick cross catheter, which was positioned within proximal right popliteal artery. Dilute Visipaque was injected and completion DSA images were obtained from knee through foot. Those images revealed complete aspiration of the obstructing tibioperoneal trunk bifurcation embolus. Those images also revealed brisk three-vessel distal runoff to right foot/ankle. Of note, when compared to pre-arterial intervention images, markedly improved flow through widely patent distal posterior tibial artery and medial and lateral plantar arteries to forefoot. Patient tolerated the procedures well without apparent complication. Hemostasis was achieved at the left groin puncture site utilizing the Mynx closure system. Impression: 1. No abdominal aortic aneurysm, or hemodynamically significant common iliac or external iliac artery stenosis, bilaterally. There is severe narrowing at proximal right hypogastric artery. 2. Despite multiple attempts in multiple obliquities, right common femoral artery bifurcation could not be optimally visualized. However, it was quite difficult to cross origin of right SFA with guidewire or catheter, suggesting at least severe calcific origin SFA narrowing. 3. Right SFA through above-knee popliteal artery segments are generally small in caliber and diffusely calcific, with multifocal areas of at least moderate narrowing, and with a localized severe to critical mid popliteal artery stenosis just above the patella. Successful, uneventful balloon angioplasty was performed from origin right SFA through proximal right popliteal artery, with satisfactory angiographic improvement. However, mid popliteal artery disease proved refractory to balloon angioplasty, for which percutaneous stenting was considered necessary and was successfully performed. 4. Post arterial intervention images revealed inadvertent distal embolization of intraluminal thrombus/atheroma to right tibioperoneal trunk bifurcation, for which successful, uneventful rescue suction embolectomy was performed. 5. Completion post arterial intervention images from right knee through foot revealed three-vessel right tibial distal runoff, with markedly improved flow through widely patent distal posterior tibial artery and medial and lateral plantar arteries. High-grade stenosis was again identified at origin of right anterior tibial artery, which remained patent through small caliber dorsalis pedis artery.
--- NOTE | 2016-10-11 13:22 | PDOC ---
Infectious Disease Note Subjective Subjective Not feeling well c/o pain and decreased appetite No BM in a week. Denies bloating or cramps Mild nausea after pain med Denies dizziness or ringing in ears ROS ROS GEN: Denies fevers, chills, sweats HEENT: Denies sore throat CV: Denies chest pain RESP: Denies shortness of air, cough GI: Denies n/v Vital Sign Vital Signs Vital Signs Date Time Temp Pulse Resp B/P (MAP) Pulse Ox O2 Delivery O2 Flow Rate FiO2 10/11/16 12:38 99 Nasal Cannula 2.0 10/11/16 11:35 91 110/65 10/11/16 03:40 97.7 18 97.7 Physical Exam PHYSICAL EXAM GENERAL: Propped up in bed, NAD HEENT: Oral cavity clear NECK: Supple, no JVD, no LN. Localized patch of vesicles and erythema posterior neck and left ear. LUNGS: Clear HEART: S1S2, no gallop, no murmur ABD: Soft, NT, BS active EXT: Left BKA. Right foot bandaged LIFT OPERATOR: Alert, oriented x 3, no focal neurologic deficit SKIN: No rash except posterior neck and left ear Fistula clean. Left chest power PICC clean Labs Lab Laboratory Tests Test 10/10/16 20:56 10/10/16 21:35 10/11/16 06:20 10/11/16 11:32 Glucose (Fingerstick) 64 mg/dL (70-99) 75 mg/dL (70-99) 102 mg/dL (70-99) White Blood Count 7.3 x10^3/uL (4.0-11.0) Red Blood Count 3.14 x10^6/uL (3.50-5.40) Hemoglobin 9.9 g/dL (12.0-15.5) Hematocrit 29.7 % (36.0-47.0) Mean Corpuscular Volume 95 fL (79-100) Mean Corpuscular Hemoglobin 31 pg (25-35) Mean Corpuscular Hemoglobin Concent 33 g/dL (31-37) Red Cell Distribution Width 14.2 % (11.5-14.5) Platelet Count 239 x10^3/uL (140-400) Neutrophils (%) (Auto) 60 % (31-73) Lymphocytes (%) (Auto) 24 % (24-48) Monocytes (%) (Auto) 10 % (0-9) Eosinophils (%) (Auto) 5 % (0-3) Basophils (%) (Auto) 1 % (0-3) Neutrophils # (Auto) 4.3 x10^3uL (1.8-7.7) Lymphocytes # (Auto) 1.8 x10^3/uL (1.0-4.8) Monocytes # (Auto) 0.7 x10^3/uL (0.0-1.1) Eosinophils # (Auto) 0.4 x10^3/uL (0.0-0.7) Basophils # (Auto) 0.1 x10^3/uL (0.0-0.2) Sodium Level 137 mmol/L (136-145) Potassium Level 4.4 mmol/L (3.5-5.1) Chloride Level 98 mmol/L (98-107) Carbon Dioxide Level 28 mmol/L (21-32) Anion Gap 11 (6-14) Blood Urea Nitrogen 51 mg/dL (7-20) Creatinine 5.5 mg/dL (0.6-1.0) Estimated GFR (Cockcroft-Gault) 8.2 Glucose Level 82 mg/dL (70-99) Calcium Level 8.0 mg/dL (8.5-10.1) Random Gentamicin Level 1.5 mcg/mL Random Vancomycin Level 16.1 mcg/mL Micro BLOOD CULTURE Preliminary NO GROWTH AFTER 2 DAYS Objective Assessment Fever - better Likely Herpes Zoster on neck Toe wound ? worsening osteo s/p partial amp R great toe, I and D, 10/10 PAD s/p SFA-pop intervention, 10/10 CKD - on HD Recent MSSA Abx allergies- MEROPENEM AND PIPERACILLIN/TAZOBACTAM CAUSING "BLEEDING RASH" DESCRIBED THE SKIN PEELING AND BLEEDING, ALSO SULFA Plan Plan of Care vanc, gent, Levofloxacin and Flagyl Fluconazole and Valtrex F/u labs and cultures Supportive care Attending Co-Sign The patient was seen and interviewed as well as examined at the bedside. The chart was reviewed. The case was discussed. Agree with the plan of care. NNEKA QUEEN APRN Oct 11, 2016 13:22 DANDY LÓPEZ MD Oct 11, 2016 16:25
[2016-10-11] MEDS: HYDROcodone/APAP 5/325MG 1 TAB TABLET PO PRN ×2 (13:29→20:30)
[2016-10-11] MEDS: VANCOMYCIN PER PHARMACY MC PRN (14:06)
[2016-10-11 15:00] VITALS: BP 108/52
[2016-10-11] MEDS ORDERED: VANCOMYCIN 500 MG in IV NORMAL SALINE 100ML 100 ML IV ONE (15:00)
[2016-10-11] MEDS: FLUCONAZOLE 100 MG TABLET. PO SCH (15:22)
--- NOTE | 2016-10-11 16:52 | PDOC ---
Provider Note Provider Note VASCULAR angio report reviewed multiple interventions in the right leg, overall perfusion to the foot improved pt underwent toe amp thursday dressing intact will fu next week SHRUTI ELKINS MD Oct 11, 2016 16:52
[2016-10-11 19:00] VITALS: BP 98/52
[2016-10-11] MEDS: FENOFIBRATE,MICRONIZED 134 MG CAPSULE PO SCH (20:34)
[2016-10-11] MEDS: NIACIN ER 500 MG TABLET.ER PO SCH (20:34)
[2016-10-11] MEDS: ATORVASTATIN CALCIUM 40 MG TABLET. PO SCH (20:34)
[2016-10-11 23:00] VITALS: BP 102/53
[2016-10-12] MEDS: oxyCODONE/APAP 10/325 1 TAB TABLET PO SCH ×7 (00:09→23:09)
[2016-10-12] MEDS: HYDROmorphone 2 MG/ML VIAL IVP PRN ×12 (00:10→23:08)
[2016-10-12] MEDS: ONDANSETRON PF 4 MG/2 ML VIAL. IV PRN ×4 (00:13→19:41)
[2016-10-12 03:00] VITALS: BP 111/56
[2016-10-12] MEDS: HYDROcodone/APAP 5/325MG 1 TAB TABLET PO PRN (03:32)
[2016-10-12 03:37] LABS: BASO # 0.1 x10^3/uL (0.0-0.2); BASO % 1 % (0-3); EOS % 5 % (0-3); LYMPH # 2.1 x10^3/uL (1.0-4.8); LYMPH % 26 % (24-48); MEAN CORPUSCULAR HEMOGLOBIN 31 pg (25-35); MEAN CORPUSCULAR HGB CONC 33 g/dL (31-37); MEAN CORPUSCULAR VOLUME 94 fL (79-100); MONO % 10 % (0-9); NEUT % 58 % (31-73); PLATELET COUNT 259 x10^3/uL (140-400); RED BLOOD COUNT 3.19 x10^6/uL (3.50-5.40); RED CELL DISTRIBUTION WIDTH 14.2 % (11.5-14.5); WHITE BLOOD COUNT 8.4 x10^3/uL (4.0-11.0)
[2016-10-12 03:45] LABS: INR 1.4 (0.8-1.1); PROTHROMBIN TIME PATIENT 16.7 SEC (11.7-14.0)
[2016-10-12 03:47] LABS: CALCIUM 8.1 mg/dL (8.5-10.1); CREATININE 3.9 mg/dL (0.6-1.0); GFR 12.2; POTASSIUM 4.1 mmol/L (3.5-5.1)
[2016-10-12] MEDS: HEPARIN PF for SUB-Q USE 5,000 UNIT/0.5 ML VIAL. SQ SCH ×3 (06:30→19:51)
[2016-10-12 07:00] VITALS: BP 113/60
[2016-10-12] MEDS: INSULIN ASPART 300 UNITS/3 ML INSULN.PEN SQ SCH ×4 (07:30→19:52)
--- NOTE | 2016-10-12 07:30 | PDOC ---
ORTHO PROGRESS NOTES Subjective Pain tolerable. No new complaints Vitals Vital Signs Date Time Temp Pulse Resp B/P (MAP) Pulse Ox O2 Delivery O2 Flow Rate FiO2 10/12/16 06:55 20 94 Nasal Cannula 2.0 10/12/16 03:00 97.9 74 111/56 (74) 97.9 Labs Laboratory Tests Test 10/10/16 07:36 10/10/16 08:30 10/10/16 12:37 10/10/16 20:56 Glucose (Fingerstick) 121 mg/dL (70-99) 94 mg/dL (70-99) 64 mg/dL (70-99) White Blood Count 6.7 x10^3/uL (4.0-11.0) Red Blood Count 3.32 x10^6/uL (3.50-5.40) Hemoglobin 10.5 g/dL (12.0-15.5) Hematocrit 31.2 % (36.0-47.0) Mean Corpuscular Volume 94 fL (79-100) Mean Corpuscular Hemoglobin 32 pg (25-35) Mean Corpuscular Hemoglobin Concent 34 g/dL (31-37) Red Cell Distribution Width 13.9 % (11.5-14.5) Platelet Count 228 x10^3/uL (140-400) Neutrophils (%) (Auto) 58 % (31-73) Lymphocytes (%) (Auto) 24 % (24-48) Monocytes (%) (Auto) 11 % (0-9) Eosinophils (%) (Auto) 6 % (0-3) Basophils (%) (Auto) 1 % (0-3) Neutrophils # (Auto) 3.9 x10^3uL (1.8-7.7) Lymphocytes # (Auto) 1.6 x10^3/uL (1.0-4.8) Monocytes # (Auto) 0.8 x10^3/uL (0.0-1.1) Eosinophils # (Auto) 0.4 x10^3/uL (0.0-0.7) Basophils # (Auto) 0.1 x10^3/uL (0.0-0.2) Sodium Level 139 mmol/L (136-145) Potassium Level 4.4 mmol/L (3.5-5.1) Chloride Level 98 mmol/L (98-107) Carbon Dioxide Level 31 mmol/L (21-32) Anion Gap 10 (6-14) Blood Urea Nitrogen 44 mg/dL (7-20) Creatinine 4.7 mg/dL (0.6-1.0) Estimated GFR (Cockcroft-Gault) 9.8 Glucose Level 118 mg/dL (70-99) Calcium Level 8.2 mg/dL (8.5-10.1) Test 10/10/16 21:35 10/11/16 06:20 10/11/16 11:32 10/11/16 16:55 Glucose (Fingerstick) 75 mg/dL (70-99) 102 mg/dL (70-99) 130 mg/dL (70-99) White Blood Count 7.3 x10^3/uL (4.0-11.0) Red Blood Count 3.14 x10^6/uL (3.50-5.40) Hemoglobin 9.9 g/dL (12.0-15.5) Hematocrit 29.7 % (36.0-47.0) Mean Corpuscular Volume 95 fL (79-100) Mean Corpuscular Hemoglobin 31 pg (25-35) Mean Corpuscular Hemoglobin Concent 33 g/dL (31-37) Red Cell Distribution Width 14.2 % (11.5-14.5) Platelet Count 239 x10^3/uL (140-400) Neutrophils (%) (Auto) 60 % (31-73) Lymphocytes (%) (Auto) 24 % (24-48) Monocytes (%) (Auto) 10 % (0-9) Eosinophils (%) (Auto) 5 % (0-3) Basophils (%) (Auto) 1 % (0-3) Neutrophils # (Auto) 4.3 x10^3uL (1.8-7.7) Lymphocytes # (Auto) 1.8 x10^3/uL (1.0-4.8) Monocytes # (Auto) 0.7 x10^3/uL (0.0-1.1) Eosinophils # (Auto) 0.4 x10^3/uL (0.0-0.7) Basophils # (Auto) 0.1 x10^3/uL (0.0-0.2) Sodium Level 137 mmol/L (136-145) Potassium Level 4.4 mmol/L (3.5-5.1) Chloride Level 98 mmol/L (98-107) Carbon Dioxide Level 28 mmol/L (21-32) Anion Gap 11 (6-14) Blood Urea Nitrogen 51 mg/dL (7-20) Creatinine 5.5 mg/dL (0.6-1.0) Estimated GFR (Cockcroft-Gault) 8.2 Glucose Level 82 mg/dL (70-99) Calcium Level 8.0 mg/dL (8.5-10.1) Random Gentamicin Level 1.5 mcg/mL Random Vancomycin Level 16.1 mcg/mL Test 10/11/16 20:42 10/12/16 03:30 Glucose (Fingerstick) 117 mg/dL (70-99) White Blood Count 8.4 x10^3/uL (4.0-11.0) Red Blood Count 3.19 x10^6/uL (3.50-5.40) Hemoglobin 10.0 g/dL (12.0-15.5) Hematocrit 30.0 % (36.0-47.0) Mean Corpuscular Volume 94 fL (79-100) Mean Corpuscular Hemoglobin 31 pg (25-35) Mean Corpuscular Hemoglobin Concent 33 g/dL (31-37) Red Cell Distribution Width 14.2 % (11.5-14.5) Platelet Count 259 x10^3/uL (140-400) Neutrophils (%) (Auto) 58 % (31-73) Lymphocytes (%) (Auto) 26 % (24-48) Monocytes (%) (Auto) 10 % (0-9) Eosinophils (%) (Auto) 5 % (0-3) Basophils (%) (Auto) 1 % (0-3) Neutrophils # (Auto) 4.9 x10^3uL (1.8-7.7) Lymphocytes # (Auto) 2.1 x10^3/uL (1.0-4.8) Monocytes # (Auto) 0.8 x10^3/uL (0.0-1.1) Eosinophils # (Auto) 0.4 x10^3/uL (0.0-0.7) Basophils # (Auto) 0.1 x10^3/uL (0.0-0.2) Prothrombin Time 16.7 SEC (11.7-14.0) Prothromb Time International Ratio 1.4 (0.8-1.1) Sodium Level 137 mmol/L (136-145) Potassium Level 4.1 mmol/L (3.5-5.1) Chloride Level 98 mmol/L (98-107) Carbon Dioxide Level 32 mmol/L (21-32) Anion Gap 7 (6-14) Blood Urea Nitrogen 27 mg/dL (7-20) Creatinine 3.9 mg/dL (0.6-1.0) Estimated GFR (Cockcroft-Gault) 12.2 Glucose Level 84 mg/dL (70-99) Calcium Level 8.1 mg/dL (8.5-10.1) Laboratory Tests Test 10/11/16 11:32 10/11/16 16:55 10/11/16 20:42 10/12/16 03:30 Glucose (Fingerstick) 102 mg/dL (70-99) 130 mg/dL (70-99) 117 mg/dL (70-99) White Blood Count 8.4 x10^3/uL (4.0-11.0) Red Blood Count 3.19 x10^6/uL (3.50-5.40) Hemoglobin 10.0 g/dL (12.0-15.5) Hematocrit 30.0 % (36.0-47.0) Mean Corpuscular Volume 94 fL (79-100) Mean Corpuscular Hemoglobin 31 pg (25-35) Mean Corpuscular Hemoglobin Concent 33 g/dL (31-37) Red Cell Distribution Width 14.2 % (11.5-14.5) Platelet Count 259 x10^3/uL (140-400) Neutrophils (%) (Auto) 58 % (31-73) Lymphocytes (%) (Auto) 26 % (24-48) Monocytes (%) (Auto) 10 % (0-9) Eosinophils (%) (Auto) 5 % (0-3) Basophils (%) (Auto) 1 % (0-3) Neutrophils # (Auto) 4.9 x10^3uL (1.8-7.7) Lymphocytes # (Auto) 2.1 x10^3/uL (1.0-4.8) Monocytes # (Auto) 0.8 x10^3/uL (0.0-1.1) Eosinophils # (Auto) 0.4 x10^3/uL (0.0-0.7) Basophils # (Auto) 0.1 x10^3/uL (0.0-0.2) Prothrombin Time 16.7 SEC (11.7-14.0) Prothromb Time International Ratio 1.4 (0.8-1.1) Sodium Level 137 mmol/L (136-145) Potassium Level 4.1 mmol/L (3.5-5.1) Chloride Level 98 mmol/L (98-107) Carbon Dioxide Level 32 mmol/L (21-32) Anion Gap 7 (6-14) Blood Urea Nitrogen 27 mg/dL (7-20) Creatinine 3.9 mg/dL (0.6-1.0) Estimated GFR (Cockcroft-Gault) 12.2 Glucose Level 84 mg/dL (70-99) Calcium Level 8.1 mg/dL (8.5-10.1) Notes A and A in bed RLE: incisions have bloody drainage, otherwise ok PT palp, unable to palpate DP toes have good cap refill Assessment and Plan toe amp and revasc to LLE dressing change no new recs per Ortho UZMA JAIMES II, MD Oct 12, 2016 07:29
[2016-10-12] MEDS: FUROSEMIDE 80 MG TABLET. PO SCH ×2 (09:03→13:28)
[2016-10-12] MEDS: SEVELAMER CARBONATE 800 MG TABLET. PO SCH ×3 (09:03→16:17)
[2016-10-12] MEDS: FOLIC/VIT B COMP W-C (RENAL) TABLET. PO SCH (09:03)
[2016-10-12] MEDS: ASPIRIN 325 MG TABLET PO SCH (09:03)
[2016-10-12] MEDS: diphenhydrAMINE HCL 25 MG CAPSULE PO SCH ×3 (09:03→19:41)
[2016-10-12] MEDS: MORPHINE ER 15 MG TABLET.ER PO SCH ×2 (09:03→19:44)
[2016-10-12] MEDS: CLOPIDOGREL BISULFATE 75 MG TABLET PO SCH (09:03)
[2016-10-12] MEDS: CARVEDILOL 12.5 MG TABLET. PO SCH ×2 (09:04→16:17)
[2016-10-12] MEDS: valACYclovir 500 MG TABLET. PO SCH (10:26)
[2016-10-12 11:00] VITALS: BP 111/51
--- NOTE | 2016-10-12 11:04 | PDOC ---
PROGRESS NOTES Chief Complaint Chief Complaint 1. R toe wound infection with h/o osteomyelitis post amputation 2 and 3rd toes, + right great toe osteomyelitis 2. ESRD on HD TTHS 3. AOCD 4. Left BKA 5. HX CABG 6. Left ear swelling and nape rash recently on cefazolin 7. Allergy to Zosyn and meropnemen with hemarrhagic rash 8. Indwelling left chest Central line 9. dm2 on low dose insulin 10. low Albumin with ESRD 11. possible PAD PLAN: On several abx per ID, D/W ID SSI vascular following cont HD DVT prophylaxis. pain control PT/OT Labs reviewed. History of Present Illness History of Present Illness sitting no acute events no fever Vitals Vitals Vital Signs Date Time Temp Pulse Resp B/P (MAP) Pulse Ox O2 Delivery O2 Flow Rate FiO2 10/12/16 09:58 94 Room Air 2.0 10/12/16 09:04 77 113/60 10/12/16 07:00 97.9 20 97.9 Physical Exam General: Alert, Oriented X3 Heart: Regular rate, Normal S1, Normal S2 Lungs: Clear Abdomen: Normal bowel sounds, Soft, No tenderness Extremities: No edema, Other (palpable bilateral femoral arteries, no palpable popliteal on the right or palpable pedal pulses on the right) Skin: Other (erythema around the right 1st toe, no purulent drainage) Labs LABS Laboratory Tests Test 10/11/16 11:32 10/11/16 16:55 10/11/16 20:42 10/12/16 03:30 Glucose (Fingerstick) 102 mg/dL (70-99) 130 mg/dL (70-99) 117 mg/dL (70-99) White Blood Count 8.4 x10^3/uL (4.0-11.0) Red Blood Count 3.19 x10^6/uL (3.50-5.40) Hemoglobin 10.0 g/dL (12.0-15.5) Hematocrit 30.0 % (36.0-47.0) Mean Corpuscular Volume 94 fL (79-100) Mean Corpuscular Hemoglobin 31 pg (25-35) Mean Corpuscular Hemoglobin Concent 33 g/dL (31-37) Red Cell Distribution Width 14.2 % (11.5-14.5) Platelet Count 259 x10^3/uL (140-400) Neutrophils (%) (Auto) 58 % (31-73) Lymphocytes (%) (Auto) 26 % (24-48) Monocytes (%) (Auto) 10 % (0-9) Eosinophils (%) (Auto) 5 % (0-3) Basophils (%) (Auto) 1 % (0-3) Neutrophils # (Auto) 4.9 x10^3uL (1.8-7.7) Lymphocytes # (Auto) 2.1 x10^3/uL (1.0-4.8) Monocytes # (Auto) 0.8 x10^3/uL (0.0-1.1) Eosinophils # (Auto) 0.4 x10^3/uL (0.0-0.7) Basophils # (Auto) 0.1 x10^3/uL (0.0-0.2) Prothrombin Time 16.7 SEC (11.7-14.0) Prothromb Time International Ratio 1.4 (0.8-1.1) Sodium Level 137 mmol/L (136-145) Potassium Level 4.1 mmol/L (3.5-5.1) Chloride Level 98 mmol/L (98-107) Carbon Dioxide Level 32 mmol/L (21-32) Anion Gap 7 (6-14) Blood Urea Nitrogen 27 mg/dL (7-20) Creatinine 3.9 mg/dL (0.6-1.0) Estimated GFR (Cockcroft-Gault) 12.2 Glucose Level 84 mg/dL (70-99) Calcium Level 8.1 mg/dL (8.5-10.1) Test 10/12/16 08:16 Glucose (Fingerstick) 70 mg/dL (70-99) Comment Review of Relevant I have reviewed the following items bert (where applicable) has been applied. Labs Laboratory Tests Test 10/10/16 12:37 10/10/16 20:56 10/10/16 21:35 10/11/16 06:20 Glucose (Fingerstick) 94 mg/dL (70-99) 64 mg/dL (70-99) 75 mg/dL (70-99) White Blood Count 7.3 x10^3/uL (4.0-11.0) Red Blood Count 3.14 x10^6/uL (3.50-5.40) Hemoglobin 9.9 g/dL (12.0-15.5) Hematocrit 29.7 % (36.0-47.0) Mean Corpuscular Volume 95 fL (79-100) Mean Corpuscular Hemoglobin 31 pg (25-35) Mean Corpuscular Hemoglobin Concent 33 g/dL (31-37) Red Cell Distribution Width 14.2 % (11.5-14.5) Platelet Count 239 x10^3/uL (140-400) Neutrophils (%) (Auto) 60 % (31-73) Lymphocytes (%) (Auto) 24 % (24-48) Monocytes (%) (Auto) 10 % (0-9) Eosinophils (%) (Auto) 5 % (0-3) Basophils (%) (Auto) 1 % (0-3) Neutrophils # (Auto) 4.3 x10^3uL (1.8-7.7) Lymphocytes # (Auto) 1.8 x10^3/uL (1.0-4.8) Monocytes # (Auto) 0.7 x10^3/uL (0.0-1.1) Eosinophils # (Auto) 0.4 x10^3/uL (0.0-0.7) Basophils # (Auto) 0.1 x10^3/uL (0.0-0.2) Sodium Level 137 mmol/L (136-145) Potassium Level 4.4 mmol/L (3.5-5.1) Chloride Level 98 mmol/L (98-107) Carbon Dioxide Level 28 mmol/L (21-32) Anion Gap 11 (6-14) Blood Urea Nitrogen 51 mg/dL (7-20) Creatinine 5.5 mg/dL (0.6-1.0) Estimated GFR (Cockcroft-Gault) 8.2 Glucose Level 82 mg/dL (70-99) Calcium Level 8.0 mg/dL (8.5-10.1) Random Gentamicin Level 1.5 mcg/mL Random Vancomycin Level 16.1 mcg/mL Test 10/11/16 11:32 10/11/16 16:55 10/11/16 20:42 10/12/16 03:30 Glucose (Fingerstick) 102 mg/dL (70-99) 130 mg/dL (70-99) 117 mg/dL (70-99) White Blood Count 8.4 x10^3/uL (4.0-11.0) Red Blood Count 3.19 x10^6/uL (3.50-5.40) Hemoglobin 10.0 g/dL (12.0-15.5) Hematocrit 30.0 % (36.0-47.0) Mean Corpuscular Volume 94 fL (79-100) Mean Corpuscular Hemoglobin 31 pg (25-35) Mean Corpuscular Hemoglobin Concent 33 g/dL (31-37) Red Cell Distribution Width 14.2 % (11.5-14.5) Platelet Count 259 x10^3/uL (140-400) Neutrophils (%) (Auto) 58 % (31-73) Lymphocytes (%) (Auto) 26 % (24-48) Monocytes (%) (Auto) 10 % (0-9) Eosinophils (%) (Auto) 5 % (0-3) Basophils (%) (Auto) 1 % (0-3) Neutrophils # (Auto) 4.9 x10^3uL (1.8-7.7) Lymphocytes # (Auto) 2.1 x10^3/uL (1.0-4.8) Monocytes # (Auto) 0.8 x10^3/uL (0.0-1.1) Eosinophils # (Auto) 0.4 x10^3/uL (0.0-0.7) Basophils # (Auto) 0.1 x10^3/uL (0.0-0.2) Prothrombin Time 16.7 SEC (11.7-14.0) Prothromb Time International Ratio 1.4 (0.8-1.1) Sodium Level 137 mmol/L (136-145) Potassium Level 4.1 mmol/L (3.5-5.1) Chloride Level 98 mmol/L (98-107) Carbon Dioxide Level 32 mmol/L (21-32) Anion Gap 7 (6-14) Blood Urea Nitrogen 27 mg/dL (7-20) Creatinine 3.9 mg/dL (0.6-1.0) Estimated GFR (Cockcroft-Gault) 12.2 Glucose Level 84 mg/dL (70-99) Calcium Level 8.1 mg/dL (8.5-10.1) Test 10/12/16 08:16 Glucose (Fingerstick) 70 mg/dL (70-99) Laboratory Tests Test 10/11/16 11:32 10/11/16 16:55 10/11/16 20:42 10/12/16 03:30 Glucose (Fingerstick) 102 mg/dL (70-99) 130 mg/dL (70-99) 117 mg/dL (70-99) White Blood Count 8.4 x10^3/uL (4.0-11.0) Red Blood Count 3.19 x10^6/uL (3.50-5.40) Hemoglobin 10.0 g/dL (12.0-15.5) Hematocrit 30.0 % (36.0-47.0) Mean Corpuscular Volume 94 fL (79-100) Mean Corpuscular Hemoglobin 31 pg (25-35) Mean Corpuscular Hemoglobin Concent 33 g/dL (31-37) Red Cell Distribution Width 14.2 % (11.5-14.5) Platelet Count 259 x10^3/uL (140-400) Neutrophils (%) (Auto) 58 % (31-73) Lymphocytes (%) (Auto) 26 % (24-48) Monocytes (%) (Auto) 10 % (0-9) Eosinophils (%) (Auto) 5 % (0-3) Basophils (%) (Auto) 1 % (0-3) Neutrophils # (Auto) 4.9 x10^3uL (1.8-7.7) Lymphocytes # (Auto) 2.1 x10^3/uL (1.0-4.8) Monocytes # (Auto) 0.8 x10^3/uL (0.0-1.1) Eosinophils # (Auto) 0.4 x10^3/uL (0.0-0.7) Basophils # (Auto) 0.1 x10^3/uL (0.0-0.2) Prothrombin Time 16.7 SEC (11.7-14.0) Prothromb Time International Ratio 1.4 (0.8-1.1) Sodium Level 137 mmol/L (136-145) Potassium Level 4.1 mmol/L (3.5-5.1) Chloride Level 98 mmol/L (98-107) Carbon Dioxide Level 32 mmol/L (21-32) Anion Gap 7 (6-14) Blood Urea Nitrogen 27 mg/dL (7-20) Creatinine 3.9 mg/dL (0.6-1.0) Estimated GFR (Cockcroft-Gault) 12.2 Glucose Level 84 mg/dL (70-99) Calcium Level 8.1 mg/dL (8.5-10.1) Test 10/12/16 08:16 Glucose (Fingerstick) 70 mg/dL (70-99) Microbiology 10/08/16 Blood Culture - Preliminary, Resulted NO GROWTH AFTER 3 DAYS 10/09/16 Urine Culture - Final, Complete 10/09/16 Urine Culture Result 1 (ROSALIND) - Final, Complete 10/10/16 Anaerobic/Aerobic Culture, Resulted Pending 10/10/16 Anaerobic Culture Result 1 (ROSALIND), Resulted Pending 10/10/16 Aerobic Culture - Preliminary, Resulted 10/10/16 Aerobic Culture Result 1 (ROSALIND) - Preliminary, Resulted Medications Current Medications Vancomycin HCl (Vanco Per Pharmacy) 1 each PRN DAILY PRN MC SEE COMMENTS Last administered on 10/11/16 14:06; Start 10/08/16 at 20:15 Gentamicin Sulfate 1 each PRN DAILY PRN MC SEE COMMENTS Last administered on 08:26; Start 10/08/16 at 20:15 Levofloxacin/ Dextrose 100 ml @ 100 mls/hr Q24H IV Last administered on 01:20; Start 10/08/16 at 21:00; Stop 10/09/16 at 08:36; Status DC Metronidazole 100 ml @ 100 mls/hr Q12HR IV Last administered on 10/09/16 03: 42; Start 10/08/16 at 21:00; Stop 10/09/16 at 08:36; Status DC Ondansetron HCl (Zofran) 4 mg PRN Q6HRS PRN IV NAUSEA/VOMITING Last administered on 10/12/16 06:24; Start 10/08/16 at 20:15 Acetaminophen (Tylenol) 650 mg PRN Q6HRS PRN PO FEVER; Start 10/08/16 at 20:15 Morphine Sulfate 2 mg PRN Q2HR PRN IV PAIN; Start 10/08/16 at 20:15; Stop 10/08 at 21:26; Status DC Acetaminophen/ Hydrocodone Bitart (Lortab 5/325) 1 tab PRN Q4HRS PRN PO MODERATE TO SEVERE PAIN Last administered on 10/12/16 03:32; Start 10/08/16 at 20:15 Fentanyl Citrate (Fentanyl 2ml Vial) 50 mcg PRN Q2HR PRN IV PAIN Last administered on 10/09/16 20:28; Start 10/08/16 at 21:30 Aspirin (Anthony Aspirin) 325 mg DAILY PO Last administered on 10/12/16 09:03; Start 10/09/16 at 09:00 Carvedilol (Coreg) 12.5 mg BIDWMEALS PO Last administered on 10/12/16 09:04; Start 10/09/16 at 08:00 Docusate Sodium (Colace) 100 mg PRN BID PRN PO CONSTIPATION; Start 10/08/16 at 21:30; Stop 10/11/16 at 08:05; Status DC Fluconazole (Diflucan) 100 mg DAILY16 PO Last administered on 10/11/16 15:22; Start 10/09/16 at 16:00 Vitamin B Complex/ Vitamin C (Melly-Shabbir) 1 tab DAILY PO Last administered on 09:03; Start 10/09/16 at 09:00 Furosemide (Lasix) 80 mg BID92 PO Last administered on 10/12/16 09:03; Start 10/09/16 at 09:00 Morphine Sulfate (Ms Contin) 15 mg BID PO ; Start 10/09/16 at 21:30; Stop at 21:30; Status DC Nitroglycerin (Nitrostat) 0.4 mg PRN Q5MIN PRN SL CHEST PAIN; Start 10/08/16 at 21:30 Oxycodone/ Acetaminophen (Percocet 10/325) 1 tab Q4HRS PO Last administered on 10/12/16 09:07; Start 10/09/16 at 00:00 Sevelamer Carbonate (Renvela) 800 mg TIDWMEALS PO Last administered on 09:03; Start 10/09/16 at 08:00 Tramadol HCl (Ultram) 50 mg PRN Q6HRS PRN PO MILD TO MODERATE PAIN; Start 10/08 at 21:30 Atorvastatin Calcium (Lipitor) 80 mg QHS PO Last administered on 10/11/16 20: 34; Start 10/09/16 at 21:00 Fenofibrate (Lofibra) 134 mg QHS PO Last administered on 10/11/16 20:34; Start 10/08/16 at 22:00 Niacin (Slo-Niacin) 500 mg QHS PO Last administered on 10/11/16 20:34; Start 10/09/16 at 21:00 Non-Formulary Medication 210 mg TIDWMEALS PO ; Start 10/09/16 at 08:00; Status UNV Diphenhydramine HCl (Benadryl) 25 mg PRN Q6HRS PRN IVP ITCHING Last administered on 10/11/16 01:26; Start 10/08/16 at 21:30 Diphenhydramine HCl (Benadryl) 25 mg TID PO ; Start 10/08/16 at 21:30; Status Cancel Heparin Sodium (Porcine) (Heparin Sq) 5,000 unit Q8HRS SQ Last administered on 10/12/16 06:30; Start 10/08/16 at 22:00 Vancomycin HCl 2 gm/Sodium Chloride 500 ml @ 250 mls/hr 1X ONCE IV Last administered on 10/09/16 00:09; Start 10/08/16 at 22:00; Stop 10/08/16 at 23:59 ; Status DC Morphine Sulfate (Ms Contin) 15 mg BID PO Last administered on 10/12/16 09:03 ; Start 10/08/16 at 22:00 Diphenhydramine HCl (Benadryl) 50 mg TID PO Last administered on 10/12/16 09: 03; Start 10/08/16 at 22:00 Gentamicin Sulfate 170 mg/ Sodium Chloride 104.25 ml @ 104.25 mls/hr 1X ONCE IV ; Start 10/08/16 at 22:00; Stop 10/08/16 at 22:59; Status Cancel Gentamicin Sulfate 145 mg/ Sodium Chloride 103.625 ml @ 103.625 mls/hr 1X ONCE IV Last administered on 10/08/16 22:51; Start 10/08/16 at 23:00; Stop at 23:59; Status DC Gentamicin Sulfate 1 each 1X ONCE MC Last administered on 10/09/16 09:00; Start 10/09/16 at 09:00; Stop 10/09/16 at 09:01; Status DC Vancomycin HCl 1 each 1X ONCE MC Last administered on 10/11/16 05:00; Start 10/11/16 at 05:00; Stop 10/11/16 at 05:01; Status DC Diphenhydramine HCl (Benadryl) 50 mg 1X ONCE PO Last administered on 03:55; Start 10/09/16 at 04:00; Stop 10/09/16 at 04:01; Status DC Levofloxacin/ Dextrose 100 ml @ 100 mls/hr Q48H IV Last administered on 21:10; Start 10/10/16 at 21:00 Metronidazole 100 ml @ 100 mls/hr Q8HRS IV Last administered on 10/12/16 06: 25; Start 10/09/16 at 14:00 Insulin Aspart (NovoLOG) 0-9 UNITS TIDWMEALS SQ ; Start 10/09/16 at 12:00; Stop 10/09/16 at 21:16; Status DC Dextrose (Dextrose 50%-Water Syringe) 12.5 gm PRN Q15MIN PRN IV SEE COMMENTS; Start 10/09/16 at 09:30 Sodium Chloride 1,000 ml @ 1,000 mls/hr Q1H PRN IV hypotension; Start 10/09/16 at 11:48; Stop 10/09/16 at 17:47; Status DC Albumin Human 200 ml @ 200 mls/hr 1X PRN PRN IV Hypotension; Start 10/09/16 at 12:00; Stop 10/09/16 at 17:59; Status DC Diphenhydramine HCl (Benadryl) 25 mg 1X PRN PRN IV ITCHING; Start 10/09/16 at 12:00; Stop 10/10/16 at 11:59; Status DC Diphenhydramine HCl (Benadryl) 25 mg 1X PRN PRN IV ITCHING; Start 10/09/16 at 12:00; Stop 10/10/16 at 11:59; Status DC Sodium Chloride 1,000 ml @ 400 mls/hr Q2H30M PRN IV PATENCY; Start 10/09/16 at 11:48; Stop 10/09/16 at 23:47; Status DC Info (PHARMACY MONITORING -- do not chart) 1 each PRN DAILY PRN MC SEE COMMENTS ; Start 10/09/16 at 12:00 Lidocaine HCl (Xylocaine-Mpf 1% Vial) 0.5 ml 1X STAT ID ; Start 10/09/16 at 12: 06; Stop 10/09/16 at 12:14; Status DC Insulin Aspart (NovoLOG) 0-9 UNITS QIDACHS SQ ; Start 10/10/16 at 07:30; Stop at 07:30; Status DC Insulin Detemir (Levemir) 4 units QHS SQ ; Start 10/09/16 at 21:30; Stop at 11:49; Status DC Morphine Sulfate 4 mg PRN Q3HRS PRN IV PAIN Last administered on 10/10/16 21: 13; Start 10/09/16 at 23:00 Insulin Aspart (NovoLOG) 0-9 UNITS QIDACHS SQ Last administered on 10/09/16 23 :21; Start 10/09/16 at 07:30; Stop 10/09/16 at 23:45; Status DC Insulin Aspart (NovoLOG) 0-9 UNITS QIDACHS SQ ; Start 10/09/16 at 23:55 Lidocaine HCl (Xylocaine-Mpf 1% Vial) 2 ml STK-MED ONCE .ROUTE ; Start 10/09/16 at 12:00; Stop 10/10/16 at 08:27; Status DC Valacyclovir HCl (Valtrex) 500 mg DAILY PO Last administered on 10/12/16 10:26 ; Start 10/10/16 at 09:00 Alteplase, Recombinant (Cathflo) 2 mg 1X ONCE INT CAT Last administered on 10:18; Start 10/10/16 at 10:00; Stop 10/10/16 at 10:01; Status DC Bupivacaine HCl (Sensorcaine Mpf 0.5%) 30 ml STK-MED ONCE .ROUTE ; Start at 10:29; Stop 10/10/16 at 10:30; Status DC Lidocaine HCl 20 ml STK-MED ONCE .ROUTE ; Start 10/10/16 at 10:29; Stop at 10:30; Status DC Fentanyl Citrate (Fentanyl 2ml Vial) 50 mcg PRN Q5MIN PRN IV Acute Pain Last administered on 10/10/16 12:51; Start 10/10/16 at 11:00; Stop 10/11/16 at 10:59 ; Status DC Morphine Sulfate 4 mg PRN Q10MIN PRN IV Moderate Pain Last administered on 10/10 12:56; Start 10/10/16 at 11:00; Stop 10/11/16 at 10:59; Status DC Hydromorphone HCl (Dilaudid) 0.4 mg PRN Q10MIN PRN IV Moderate to severe pain Last administered on 10/11/16 09:04; Start 10/10/16 at 11:00; Stop 10/11/16 at 10:59; Status DC Meperidine HCl (Demerol) 12.5 mg PRN Q5MIN PRN IV SHIVERING; Start 10/10/16 at 11:00; Stop 10/11/16 at 10:59; Status DC Prochlorperazine Edisylate (Compazine) 5 mg PRN Q6HRS PRN IV Nausea/Vomiting, 1st Choice; Start 10/10/16 at 11:00; Stop 10/11/16 at 10:59; Status DC Diphenhydramine HCl (Benadryl) 12.5 mg PRN Q2HR PRN IV ITCHING; Start 10/10/16 at 11:00; Stop 10/11/16 at 10:59; Status DC Midazolam HCl (Versed) 2 mg PRN 1X PRN IV PRIOR TO PROCEDURE; Start 10/10/16 at 11:00; Stop 10/11/16 at 10:59; Status DC Midazolam HCl (Versed) 1 mg PRN 1X PRN IV PRIOR TO PROCEDURE; Start 10/10/16 at 11:00; Stop 10/11/16 at 10:59; Status DC Fentanyl Citrate (Fentanyl 2ml Vial) 25 mcg PRN Q5MIN PRN IV X 2 DOSES FOR PAIN ; Start 10/10/16 at 11:00; Stop 10/11/16 at 10:59; Status DC Fentanyl Citrate (Fentanyl 2ml Vial) 50 mcg PRN Q5MIN PRN IV X 2 DOSES FOR PAIN Last administered on 10/10/16 12:34; Start 10/10/16 at 11:00; Stop at 10:59; Status DC Ringer's Solution 1,000 ml @ 125 mls/hr Q8H IV ; Start 10/10/16 at 10:51; Stop 10/10/16 at 22:50; Status DC Lidocaine HCl 2 ml 1X PRN PRN ID IV START; Start 10/10/16 at 11:00; Stop at 10:59; Status DC Sodium Chloride 1,000 ml @ 0 mls/hr 1X ONCE IV ; Start 10/10/16 at 11:00; Stop 10/10/16 at 11:01; Status DC Lidocaine HCl 20 ml STK-MED ONCE .ROUTE ; Start 10/10/16 at 10:58; Stop at 10:59; Status DC Propofol 50 ml @ As Directed STK-MED ONCE IV ; Start 10/10/16 at 11:39; Stop at 11:40; Status DC Iodixanol (Visipaque 320) 50 ml STK-MED ONCE .ROUTE ; Start 10/10/16 at 12:51; Stop 10/10/16 at 12:52; Status DC Iohexol (Omnipaque 300 Mg/ml) 100 ml STK-MED ONCE .ROUTE ; Start 10/10/16 at 12: 51; Stop 10/10/16 at 12:52; Status DC Lidocaine/Sodium Bicarbonate (Buffered Lidocaine 1%) 20 ml STK-MED ONCE IJ ; Start 10/10/16 at 12:51; Stop 10/10/16 at 12:52; Status DC Midazolam HCl (Versed) 5 mg STK-MED ONCE .ROUTE ; Start 10/10/16 at 12:51; Stop 10/10/16 at 12:52; Status DC Fentanyl Citrate (Fentanyl 5ml Vial) 250 mcg STK-MED ONCE .ROUTE ; Start at 12:51; Stop 10/10/16 at 12:52; Status DC Heparin Sodium/ Sodium Chloride 1,500 ml @ As Directed STK-MED ONCE .ROUTE ; Start 10/10/16 at 12:52; Stop 10/10/16 at 12:53; Status DC Iodixanol (Visipaque 320) 100 ml STK-MED ONCE .ROUTE ; Start 10/10/16 at 12:52; Stop 10/10/16 at 12:53; Status DC Heparin Sodium/ Sodium Chloride 2,000 unit 1X ONCE IART Last administered on 16:39; Start 10/10/16 at 13:00; Stop 10/10/16 at 13:01; Status DC Heparin Sodium/ Sodium Chloride 1,000 unit 1X ONCE IART Last administered on 16:39; Start 10/10/16 at 13:00; Stop 10/10/16 at 13:01; Status DC Lidocaine/Sodium Bicarbonate (Buffered Lidocaine 1%) 20 ml 1X ONCE IJ Last administered on 10/10/16 16:40; Start 10/10/16 at 13:00; Stop 10/10/16 at 13:01 ; Status DC Midazolam HCl (Versed) 5 mg 1X ONCE IV Last administered on 10/10/16 16:40; Start 10/10/16 at 13:00; Stop 10/10/16 at 13:01; Status DC Fentanyl Citrate (Fentanyl 5ml Vial) 150 mcg 1X ONCE IV Last administered on 16:43; Start 10/10/16 at 13:00; Stop 10/10/16 at 13:01; Status DC Iohexol (Omnipaque 300 Mg/ml) 100 ml 1X ONCE IART Last administered on 16:39; Start 10/10/16 at 13:00; Stop 10/10/16 at 13:01; Status DC Iodixanol (Visipaque 320) 100 ml 1X ONCE IART Last administered on 10/10/16 16:39; Start 10/10/16 at 13:00; Stop 10/10/16 at 13:01; Status DC Info (Do NOT chart on this entry -- for MONITORING) 1 each PRN DAILY PRN MC SEE COMMENTS; Start 10/10/16 at 13:00; Stop 10/12/16 at 12:59 Gentamicin Sulfate 1 each 1X ONCE MC Last administered on 10/11/16 05:00; Start 10/11/16 at 05:00; Stop 10/11/16 at 05:01; Status DC Heparin Sodium (Porcine) (Heparin Sodium) 10,000 unit STK-MED ONCE .ROUTE ; Start 10/10/16 at 14:52; Stop 10/10/16 at 14:53; Status DC Heparin Sodium (Porcine) (Heparin Sodium) 5,000 unit 1X ONCE IV Last administered on 10/10/16 16:45; Start 10/10/16 at 14:55; Stop 10/10/16 at 15:02 ; Status DC Clopidogrel Bisulfate (Plavix) 600 mg 1X STAT PO Last administered on 18:40; Start 10/10/16 at 17:49; Stop 10/10/16 at 17:50; Status DC Clopidogrel Bisulfate (Plavix) 75 mg DAILYWBKFT PO Last administered on 09:03; Start 10/11/16 at 08:00; Stop 01/11/17 at 08:00 Hydromorphone HCl (Dilaudid) 0.2 mg PRN Q1HR PRN IVP SEVERE PAIN Last administered on 10/11/16 06:25; Start 10/10/16 at 22:45; Stop 10/11/16 at 08:05 ; Status DC Hydromorphone HCl (Dilaudid) 0.4 mg PRN Q1HR PRN IVP PAIN Last administered on 10/12/16 09:21; Start 10/11/16 at 08:15 Senna/Docusate Sodium (Senna Plus) 1 tab PRN BID PRN PO CONSTIPATION; Start at 08:15 Sodium Chloride 1,000 ml @ 1,000 mls/hr Q1H PRN IV hypotension; Start 10/11/16 at 08:14; Stop 10/11/16 at 14:13; Status DC Info (PHARMACY MONITORING -- do not chart) 1 each PRN DAILY PRN MC SEE COMMENTS ; Start 10/11/16 at 08:15; Status Cancel Info (PHARMACY MONITORING -- do not chart) 1 each PRN DAILY PRN MC SEE COMMENTS ; Start 10/11/16 at 08:15; Status Cancel Gentamicin Sulfate 145 mg/ Sodium Chloride 103.625 ml @ 103.625 mls/hr 1X ONCE IV Last administered on 10/11/16 11:36; Start 10/11/16 at 12:00; Stop at 12:59; Status DC Vancomycin HCl 500 mg/Sodium Chloride 100 ml @ 100 mls/hr 1X ONCE IV Last administered on 10/11/16 15:31; Start 10/11/16 at 15:00; Stop 10/11/16 at 15:59 ; Status DC Vancomycin HCl 1 each 1X ONCE MC ; Start 10/14/16 at 05:00; Stop 10/14/16 at 05 :01 Gentamicin Sulfate 1 each 1X ONCE MC ; Start 10/14/16 at 05:00; Stop 10/14/16 at 05:01 Active Scripts Active Percocet 10-325 Mg Tablet (Oxycodone/Acetaminophen) 1 Each Tablet 1 Tab PO Q4HRS Fluconazole 100 Mg Tablet 100 Mg PO DAILY16 Renvela (Sevelamer Carbonate) 800 Mg Tablet 800 Mg PO TIDWMEALS Morphine Sulfate Er (Morphine Sulfate) 15 Mg Tablet.er 15 Mg PO BID Reported Zofran (Ondansetron Hcl) 4 Mg Tablet 4 Mg PO Q6-8HRS PRN Lantus Solostar (Insulin Glargine,Hum.rec.anlog) 100 Unit/1 Ml Insuln.pen 10 Unit SQ QHS [auryxia] 210 Mg PO TIDWMEALS Carvedilol 12.5 Mg Tablet 1 Tab PO DAILY Carvedilol 12.5 Mg Tablet 1 Tab PO BID Nephro-Shabbir Tablet (Folic Acid/Vitamin B Comp W-C) 0.8 Mg Tablet 1 Tab PO DAILY Fluconazole 100 Mg Tablet 150 Mg PO PRN PRN Tramadol Hcl 50 Mg Tablet 50 Mg PO Q6H PRN Tricor (Fenofibrate Nanocrystallized) 145 Mg Tablet 1 Tab PO HS Lipitor (Atorvastatin Calcium) 80 Mg Tablet 80 Mg PO HS Niacin 500 Mg Tablet 500 Mg PO HS Novolog (Insulin Aspart) 100 Unit/1 Ml Cartridge 0 SQ TIDAC sliding scale Aspirin 325 Mg Tablet 325 Mg PO DAILY Furosemide 80 Mg Tablet 80 Mg PO BID Docusate Sodium 100 Mg Capsule 1 Cap PO PRN PRN Nitrostat (Nitroglycerin) 0.4 Mg Tab.subl 0.4 Mg SL PRN Q5MIN PRN Take as needed for chest pain Vitals/I & O Vital Sign - Last 24 Hours 10/11/16 10/11/16 10/11/16 10/11/16 11:34 11:35 11:35 13:29 Pulse 91 B/P (MAP) 110/65 Pulse Ox 99 99 99 O2 Delivery Nasal Cannula Nasal Cannula Nasal Cannula O2 Flow Rate 2.0 2.0 2.0 10/11/1617 10/11/17 10/11/16 13:29 15:00 15:22 15:27 Temp 98.8 98.8 Pulse 76 Resp 20 B/P (MAP) 108/52 (70) Pulse Ox 99 98 99 99 O2 Delivery Nasal Cannula Room Air Nasal Cannula Nasal Cannula O2 Flow Rate 2.0 2.0 2.0 10/11/16 10/11/16 10/11/16 10/11/16 16:58 16:59 19:00 20:00 Temp 98.8 98.8 Pulse 76 75 Resp 18 B/P (MAP) 108/52 98/52 (67) Pulse Ox 99 94 O2 Delivery Nasal Cannula Room Air Nasal Cannula O2 Flow Rate 2.0 2.0 10/11/16 10/11/16 10/11/16 10/11/16 20:30 20:34 20:34 20:35 Resp 20 20 20 20 Pulse Ox 94 94 94 94 O2 Delivery Nasal Cannula Nasal Cannula Nasal Cannula Nasal Cannula O2 Flow Rate 2.0 2.0 2.0 2.0 10/11/1610/12/18/17 10/12/16 23:00 00:09 00:10 00:34 Temp 97.9 97.9 Pulse 74 Resp 18 20 20 20 B/P (MAP) 102/53 (69) Pulse Ox 94 94 94 94 O2 Delivery Room Air Nasal Cannula Nasal Cannula Nasal Cannula O2 Flow Rate 2.0 2.0 2.0 10/12/16 10/12/1618/17 10/12/16 03:00 03:32 03:32 03:33 Temp 97.9 97.9 Pulse 74 Resp 18 20 20 20 B/P (MAP) 111/56 (74) Pulse Ox 94 94 94 94 O2 Delivery Room Air Nasal Cannula Nasal Cannula Nasal Cannula O2 Flow Rate 2.0 2.0 2.0 10/12/1610/12/17 18/17 18/17 04:32 04:32 06:25 06:55 Resp 20 20 20 20 Pulse Ox 94 94 O2 Delivery Nasal Cannula Room Air O2 Flow Rate 2.0 10/12/1610/12/10/12/17 10/12/16 07:00 07:39 08:00 09:03 Temp 97.9 97.9 Pulse 77 Resp 20 B/P (MAP) 113/60 (77) Pulse Ox 100 94 94 O2 Delivery Room Air Nasal Cannula Room Air Nasal Cannula O2 Flow Rate 2.0 2.0 10/12/16 10/12/16 10/12/16 10/12/16 09:04 09:07 09:21 09:58 Pulse 77 B/P (MAP) 113/60 Pulse Ox 94 94 94 O2 Delivery Nasal Cannula Nasal Cannula Room Air O2 Flow Rate 2.0 2.0 2.0 10/12/16 09:58 Pulse Ox 94 O2 Delivery Room Air O2 Flow Rate 2.0 Intake and Output 10/11/16 10/11/16 10/12/16 15:00 23:00 07:00 Intake Total 300 ml 400 ml 100 ml Output Total 0 ml Balance 300 ml 400 ml 100 ml BETO CARSON MD Oct 12, 2016 11:04
--- NOTE | 2016-10-12 11:45 | PDOC ---
Renal-Progress Notes Subjective Notes Notes FEELING BETTER History of Present Illness Hx of present illness STABLE Vitals Vitals Vital Signs Date Time Temp Pulse Resp B/P (MAP) Pulse Ox O2 Delivery O2 Flow Rate FiO2 10/12/16 09:58 94 Room Air 2.0 10/12/16 09:04 77 113/60 10/12/16 07:00 97.9 20 97.9 Weight Weight [ ] I.O. Intake and Output Intake and Output 10/12/16 07:00 Intake Total 800 ml Output Total 0 ml Balance 800 ml Intake Oral 500 ml IV Total 300 ml Output Urine Total 0 ml Labs Labs Laboratory Tests Test 10/11/16 16:55 10/11/16 20:42 10/12/16 03:30 10/12/16 08:16 Glucose (Fingerstick) 130 mg/dL (70-99) 117 mg/dL (70-99) 70 mg/dL (70-99) White Blood Count 8.4 x10^3/uL (4.0-11.0) Red Blood Count 3.19 x10^6/uL (3.50-5.40) Hemoglobin 10.0 g/dL (12.0-15.5) Hematocrit 30.0 % (36.0-47.0) Mean Corpuscular Volume 94 fL (79-100) Mean Corpuscular Hemoglobin 31 pg (25-35) Mean Corpuscular Hemoglobin Concent 33 g/dL (31-37) Red Cell Distribution Width 14.2 % (11.5-14.5) Platelet Count 259 x10^3/uL (140-400) Neutrophils (%) (Auto) 58 % (31-73) Lymphocytes (%) (Auto) 26 % (24-48) Monocytes (%) (Auto) 10 % (0-9) Eosinophils (%) (Auto) 5 % (0-3) Basophils (%) (Auto) 1 % (0-3) Neutrophils # (Auto) 4.9 x10^3uL (1.8-7.7) Lymphocytes # (Auto) 2.1 x10^3/uL (1.0-4.8) Monocytes # (Auto) 0.8 x10^3/uL (0.0-1.1) Eosinophils # (Auto) 0.4 x10^3/uL (0.0-0.7) Basophils # (Auto) 0.1 x10^3/uL (0.0-0.2) Prothrombin Time 16.7 SEC (11.7-14.0) Prothromb Time International Ratio 1.4 (0.8-1.1) Sodium Level 137 mmol/L (136-145) Potassium Level 4.1 mmol/L (3.5-5.1) Chloride Level 98 mmol/L (98-107) Carbon Dioxide Level 32 mmol/L (21-32) Anion Gap 7 (6-14) Blood Urea Nitrogen 27 mg/dL (7-20) Creatinine 3.9 mg/dL (0.6-1.0) Estimated GFR (Cockcroft-Gault) 12.2 Glucose Level 84 mg/dL (70-99) Calcium Level 8.1 mg/dL (8.5-10.1) Micro Micro Microbiology 10/08/16 Blood Culture - Preliminary, Resulted NO GROWTH AFTER 3 DAYS 10/09/16 Urine Culture - Final, Complete 10/09/16 Urine Culture Result 1 (ROSALIND) - Final, Complete 10/10/16 Anaerobic/Aerobic Culture, Resulted Pending 10/10/16 Anaerobic Culture Result 1 (ROSALIND), Resulted Pending 10/10/16 Aerobic Culture - Final, Resulted 10/10/16 Aerobic Culture Result 1 (ROSALIND) - Final, Resulted Review of Systems Constitutional: yes: weakness, alert, oriented Pulmonary: Yes no symptom reported Cardiovascular: Yes no symptom reported Gastrointestional: Yes: no symptom reported Musculoskeletal: Yes: muscle stiffness Skin: Yes no symptom reported Physical Exam General Appearance: no apparent distress Skin: warm Respiratory: bilateral CTA Heart: S1S2 Abdomen: soft Extremities: atrophy Neurology: alert Assessment Assessment IMP DM II HTN ANEMIA TOE OSTEO ESRD PLAN WOUND CARE ANTIBIOTICS HD THURSDAY CHARLY ZAVALA MD Oct 12, 2016 11:45
--- NOTE | 2016-10-12 13:01 | PDOC ---
Infectious Disease Note Subjective Subjective Feeling better today Denies dizziness or ringing in ears ROS ROS GEN: Denies fevers, chills, sweats CV: Denies chest pain RESP: Denies shortness of air, cough GI: Denies n/v/d Vital Sign Vital Signs Vital Signs Date Time Temp Pulse Resp B/P (MAP) Pulse Ox O2 Delivery O2 Flow Rate FiO2 10/12/16 12:20 95 Room Air 2.0 10/12/16 11:00 97.8 77 20 111/51 (71) 97.8 Physical Exam PHYSICAL EXAM GENERAL: Propped up in bed, eating, smiling HEENT: Oral cavity clear NECK: Supple, no JVD, no LN. Localized patch of vesicles and erythema posterior neck and left ear. LUNGS: Clear HEART: S1S2, no gallop, no murmur ABD: Soft, NT, BS active EXT: Left BKA. Right foot bandaged PSYCH NURSE: Alert, oriented x 3, no focal neurologic deficit SKIN: No rash except posterior neck and left ear Fistula clean. Left chest power PICC Labs Lab Laboratory Tests Test 10/11/16 16:55 10/11/16 20:42 10/12/16 03:30 10/12/16 08:16 Glucose (Fingerstick) 130 mg/dL (70-99) 117 mg/dL (70-99) 70 mg/dL (70-99) White Blood Count 8.4 x10^3/uL (4.0-11.0) Red Blood Count 3.19 x10^6/uL (3.50-5.40) Hemoglobin 10.0 g/dL (12.0-15.5) Hematocrit 30.0 % (36.0-47.0) Mean Corpuscular Volume 94 fL (79-100) Mean Corpuscular Hemoglobin 31 pg (25-35) Mean Corpuscular Hemoglobin Concent 33 g/dL (31-37) Red Cell Distribution Width 14.2 % (11.5-14.5) Platelet Count 259 x10^3/uL (140-400) Neutrophils (%) (Auto) 58 % (31-73) Lymphocytes (%) (Auto) 26 % (24-48) Monocytes (%) (Auto) 10 % (0-9) Eosinophils (%) (Auto) 5 % (0-3) Basophils (%) (Auto) 1 % (0-3) Neutrophils # (Auto) 4.9 x10^3uL (1.8-7.7) Lymphocytes # (Auto) 2.1 x10^3/uL (1.0-4.8) Monocytes # (Auto) 0.8 x10^3/uL (0.0-1.1) Eosinophils # (Auto) 0.4 x10^3/uL (0.0-0.7) Basophils # (Auto) 0.1 x10^3/uL (0.0-0.2) Prothrombin Time 16.7 SEC (11.7-14.0) Prothromb Time International Ratio 1.4 (0.8-1.1) Sodium Level 137 mmol/L (136-145) Potassium Level 4.1 mmol/L (3.5-5.1) Chloride Level 98 mmol/L (98-107) Carbon Dioxide Level 32 mmol/L (21-32) Anion Gap 7 (6-14) Blood Urea Nitrogen 27 mg/dL (7-20) Creatinine 3.9 mg/dL (0.6-1.0) Estimated GFR (Cockcroft-Gault) 12.2 Glucose Level 84 mg/dL (70-99) Calcium Level 8.1 mg/dL (8.5-10.1) Test 10/12/16 11:45 Glucose (Fingerstick) 90 mg/dL (70-99) Micro BLOOD CULTURE Preliminary NO GROWTH AFTER 3 DAYS Objective Assessment Fever - better Likely Herpes Zoster on neck Toe wound ? worsening osteo s/p partial amp R great toe, I and D, 10/10. closed PAD s/p SFA-pop intervention, 10/10 CKD - on HD Recent MSSA Abx allergies- MEROPENEM AND PIPERACILLIN/TAZOBACTAM CAUSING "BLEEDING RASH" DESCRIBED THE SKIN PEELING AND BLEEDING, ALSO SULFA Plan Plan of Care vanc, gent, Levofloxacin, fluconazole and Flagyl, scale down soon Valtrex F/u labs and cultures Supportive care Attending Co-Sign The patient was seen and interviewed as well as examined at the bedside. The chart was reviewed. The case was discussed. Agree with the plan of care. wound looks good, pt is though not comfortable to stop iv and go on po because of prior failures . will d/c tomorrow on iv NNEKA QUEEN APRN 18, 2017 13:01 DANDY LÓPEZ MD Oct 12, 2016 13:25
[2016-10-12 15:00] VITALS: BP 114/55
[2016-10-12] MEDS: FLUCONAZOLE 100 MG TABLET. PO SCH (16:17)
[2016-10-12] MEDS: PANTOPRAZOLE 40 MG TABLET.DR. PO SCH (18:18)
[2016-10-12 19:00] VITALS: BP 159/68
[2016-10-12] MEDS: diphenhydrAMINE 50 MG/ML VIAL IVP PRN (19:40)
[2016-10-12] MEDS: NIACIN ER 500 MG TABLET.ER PO SCH (19:41)
[2016-10-12] MEDS: ATORVASTATIN CALCIUM 40 MG TABLET. PO SCH (19:41)
[2016-10-12] MEDS: FENOFIBRATE,MICRONIZED 134 MG CAPSULE PO SCH (19:42)
[2016-10-12 23:00] VITALS: BP 173/88
[2016-10-13 03:00] VITALS: BP 150/100
[2016-10-13] MEDS: oxyCODONE/APAP 10/325 1 TAB TABLET PO SCH ×5 (03:30→21:38)
[2016-10-13] MEDS: PANTOPRAZOLE 40 MG TABLET.DR. PO SCH (03:30)
[2016-10-13] MEDS: ONDANSETRON PF 4 MG/2 ML VIAL. IV PRN (03:30)
[2016-10-13] MEDS: HYDROmorphone 2 MG/ML VIAL IVP PRN ×4 (03:31→23:27)
[2016-10-13 07:00] VITALS: BP 136/65
[2016-10-13] MEDS: INSULIN ASPART 300 UNITS/3 ML INSULN.PEN SQ SCH ×4 (07:30→21:00)
[2016-10-13] MEDS: SEVELAMER CARBONATE 800 MG TABLET. PO SCH ×3 (08:00→16:57)
[2016-10-13] MEDS: CLOPIDOGREL BISULFATE 75 MG TABLET PO SCH (08:00)
[2016-10-13] MEDS: valACYclovir 500 MG TABLET. PO SCH (09:00)
[2016-10-13] MEDS: MORPHINE ER 15 MG TABLET.ER PO SCH ×2 (09:00→11:44)
[2016-10-13] MEDS: FUROSEMIDE 80 MG TABLET. PO SCH ×2 (09:00→11:45)
[2016-10-13] MEDS: ASPIRIN 325 MG TABLET PO SCH (09:29)
[2016-10-13] MEDS: diphenhydrAMINE HCL 25 MG CAPSULE PO SCH ×3 (09:30→21:39)
[2016-10-13] MEDS: FOLIC/VIT B COMP W-C (RENAL) TABLET. PO SCH (09:31)
[2016-10-13] MEDS: CARVEDILOL 12.5 MG TABLET. PO SCH ×2 (09:32→16:58)
[2016-10-13] MEDS: HEPARIN PF for SUB-Q USE 5,000 UNIT/0.5 ML VIAL. SQ SCH ×3 (09:40→21:57)
--- NOTE | 2016-10-13 09:49 | PDOC ---
Infectious Disease Note Subjective Subjective Feeling better today Denies dizziness or ringing in ears ROS ROS GEN: Denies fevers, chills, sweats HEENT: Denies blurred vision, sore throat CV: Denies chest pain RESP: Denies shortness of air, cough GI: Denies n/v/d NEURO: Denies confusion, dizziness MSK: Denies weakness, joint pain/swelling Vital Sign Vital Signs Vital Signs Date Time Temp Pulse Resp B/P (MAP) Pulse Ox O2 Delivery O2 Flow Rate FiO2 10/13/16 07:00 98.4 90 18 136/65 (88) 97 Room Air 98.4 10/12/16 19:12 2.0 Physical Exam PHYSICAL EXAM GENERAL: NAD, Alert HEENT: PERRL, OC/OP NECK: Supple, no JVD, no LN LUNGS: Clear HEART: S1S2, no gallop, no murmur ABD: Soft, NT, no organomegaly, no rebound EXT: No edema, no cyanosis,, rt foot incision looks good SAAS ARCHITECT: Alert, oriented x 3, no focal neurologic deficit SKIN: No rash IV: ok Labs Lab Laboratory Tests Test 10/12/16 11:45 10/12/16 16:38 10/12/16 19:38 10/13/16 03:39 Glucose (Fingerstick) 90 mg/dL (70-99) 128 mg/dL (70-99) 99 mg/dL (70-99) 74 mg/dL (70-99) Test 10/13/16 07:22 Glucose (Fingerstick) 77 mg/dL (70-99) Objective Assessment Fever - better Likely Herpes Zoster on neck Toe wound ? worsening osteo s/p partial amp R great toe, I and D, 10/10. closed PAD s/p SFA-pop intervention, 10/10 CKD - on HD Recent MSSA Abx allergies- MEROPENEM AND PIPERACILLIN/TAZOBACTAM CAUSING "BLEEDING RASH" DESCRIBED THE SKIN PEELING AND BLEEDING, ALSO SULFA Plan Plan of Care pt is not feeling comfortable with oral, since it has failed last time, and worried about losing more of her foot, will d/c her on iv antibiotics for 10 - 14 days F/u labs and cultures Supportive care DANDY LÓPEZ MD Oct 13, 2016 09:49
--- NOTE | 2016-10-13 10:32 | PDOC ---
ORTHO PROGRESS NOTES Subjective Pain doing ok, no new complaints Vitals Vital Signs Date Time Temp Pulse Resp B/P (MAP) Pulse Ox O2 Delivery O2 Flow Rate FiO2 10/13/16 09:57 Room Air 10/13/16 09:32 90 136/65 10/13/16 07:00 98.4 18 97 98.4 10/12/16 19:12 2.0 Labs Laboratory Tests Test 10/11/16 11:32 10/11/16 16:55 10/11/16 20:42 10/12/16 03:30 Glucose (Fingerstick) 102 mg/dL (70-99) 130 mg/dL (70-99) 117 mg/dL (70-99) White Blood Count 8.4 x10^3/uL (4.0-11.0) Red Blood Count 3.19 x10^6/uL (3.50-5.40) Hemoglobin 10.0 g/dL (12.0-15.5) Hematocrit 30.0 % (36.0-47.0) Mean Corpuscular Volume 94 fL (79-100) Mean Corpuscular Hemoglobin 31 pg (25-35) Mean Corpuscular Hemoglobin Concent 33 g/dL (31-37) Red Cell Distribution Width 14.2 % (11.5-14.5) Platelet Count 259 x10^3/uL (140-400) Neutrophils (%) (Auto) 58 % (31-73) Lymphocytes (%) (Auto) 26 % (24-48) Monocytes (%) (Auto) 10 % (0-9) Eosinophils (%) (Auto) 5 % (0-3) Basophils (%) (Auto) 1 % (0-3) Neutrophils # (Auto) 4.9 x10^3uL (1.8-7.7) Lymphocytes # (Auto) 2.1 x10^3/uL (1.0-4.8) Monocytes # (Auto) 0.8 x10^3/uL (0.0-1.1) Eosinophils # (Auto) 0.4 x10^3/uL (0.0-0.7) Basophils # (Auto) 0.1 x10^3/uL (0.0-0.2) Prothrombin Time 16.7 SEC (11.7-14.0) Prothromb Time International Ratio 1.4 (0.8-1.1) Sodium Level 137 mmol/L (136-145) Potassium Level 4.1 mmol/L (3.5-5.1) Chloride Level 98 mmol/L (98-107) Carbon Dioxide Level 32 mmol/L (21-32) Anion Gap 7 (6-14) Blood Urea Nitrogen 27 mg/dL (7-20) Creatinine 3.9 mg/dL (0.6-1.0) Estimated GFR (Cockcroft-Gault) 12.2 Glucose Level 84 mg/dL (70-99) Calcium Level 8.1 mg/dL (8.5-10.1) Test 10/12/16 08:16 10/12/16 11:45 10/12/16 16:38 10/12/16 19:38 Glucose (Fingerstick) 70 mg/dL (70-99) 90 mg/dL (70-99) 128 mg/dL (70-99) 99 mg/dL (70-99) Test 10/13/16 03:39 10/13/16 07:22 Glucose (Fingerstick) 74 mg/dL (70-99) 77 mg/dL (70-99) Laboratory Tests Test 10/12/16 11:45 10/12/16 16:38 10/12/16 19:38 10/13/16 03:39 Glucose (Fingerstick) 90 mg/dL (70-99) 128 mg/dL (70-99) 99 mg/dL (70-99) 74 mg/dL (70-99) Test 10/13/16 07:22 Glucose (Fingerstick) 77 mg/dL (70-99) Notes A and A RLE: edema to mid tibia bloody drainage at incision, toe looks ok Assessment and Plan f/u in Wound Care 10/24 I will see her down there UZMA JAIMES II, MD Oct 13, 2016 10:32
[2016-10-13 11:03] VITALS: BP 128/70
--- NOTE | 2016-10-13 12:09 | PDOC ---
PROGRESS NOTES Subjective Subjective Patient was seen resting comfortably in her hospital bed. Her pain is under good control. Objective Objective Vital Signs Date Time Temp Pulse Resp B/P (MAP) Pulse Ox O2 Delivery O2 Flow Rate FiO2 10/13/16 11:44 95 Room Air 10/13/16 11:03 98.2 88 20 128/70 (89) 98.2 10/12/16 19:12 2.0 Intake and Output 10/13/16 07:00 Intake Total 150 ml Output Total 0 ml Balance 150 ml IV Total 150 ml Output Urine Total 0 ml # Voids 2 Physical Exam Physical Exam Chest: Clear to auscultation bilaterally Cardiovascular: S1-S2 regular rate and rhythm Abdomen: Soft nontender nondistended Extremity: The right great toe amputation site is clean, dry, and intact. Assessment Assessment Atherosclerosis with gangrene Plan Plan of Care Patient will follow up in our office in 2 weeks for wound check and suture removal. Patient should transfer and ambulate using right surgical shoe. Patient should be discharged on aspirin and Plavix and statin given her right lower extremity percutaneous intervention with stenting. Comment Review of Relevant I have reviewed the following items bert (where applicable) has been applied. Labs Laboratory Tests Test 10/11/16 16:55 10/11/16 20:42 10/12/16 03:30 10/12/16 08:16 Glucose (Fingerstick) 130 mg/dL (70-99) 117 mg/dL (70-99) 70 mg/dL (70-99) White Blood Count 8.4 x10^3/uL (4.0-11.0) Red Blood Count 3.19 x10^6/uL (3.50-5.40) Hemoglobin 10.0 g/dL (12.0-15.5) Hematocrit 30.0 % (36.0-47.0) Mean Corpuscular Volume 94 fL (79-100) Mean Corpuscular Hemoglobin 31 pg (25-35) Mean Corpuscular Hemoglobin Concent 33 g/dL (31-37) Red Cell Distribution Width 14.2 % (11.5-14.5) Platelet Count 259 x10^3/uL (140-400) Neutrophils (%) (Auto) 58 % (31-73) Lymphocytes (%) (Auto) 26 % (24-48) Monocytes (%) (Auto) 10 % (0-9) Eosinophils (%) (Auto) 5 % (0-3) Basophils (%) (Auto) 1 % (0-3) Neutrophils # (Auto) 4.9 x10^3uL (1.8-7.7) Lymphocytes # (Auto) 2.1 x10^3/uL (1.0-4.8) Monocytes # (Auto) 0.8 x10^3/uL (0.0-1.1) Eosinophils # (Auto) 0.4 x10^3/uL (0.0-0.7) Basophils # (Auto) 0.1 x10^3/uL (0.0-0.2) Prothrombin Time 16.7 SEC (11.7-14.0) Prothromb Time International Ratio 1.4 (0.8-1.1) Sodium Level 137 mmol/L (136-145) Potassium Level 4.1 mmol/L (3.5-5.1) Chloride Level 98 mmol/L (98-107) Carbon Dioxide Level 32 mmol/L (21-32) Anion Gap 7 (6-14) Blood Urea Nitrogen 27 mg/dL (7-20) Creatinine 3.9 mg/dL (0.6-1.0) Estimated GFR (Cockcroft-Gault) 12.2 Glucose Level 84 mg/dL (70-99) Calcium Level 8.1 mg/dL (8.5-10.1) Test 10/12/16 11:45 10/12/16 16:38 10/12/16 19:38 10/13/16 03:39 Glucose (Fingerstick) 90 mg/dL (70-99) 128 mg/dL (70-99) 99 mg/dL (70-99) 74 mg/dL (70-99) Test 10/13/16 07:22 10/13/16 10:46 Glucose (Fingerstick) 77 mg/dL (70-99) 85 mg/dL (70-99) Laboratory Tests Test 10/12/16 16:38 10/12/16 19:38 10/13/16 03:39 10/13/16 07:22 Glucose (Fingerstick) 128 mg/dL (70-99) 99 mg/dL (70-99) 74 mg/dL (70-99) 77 mg/dL (70-99) Test 10/13/16 10:46 Glucose (Fingerstick) 85 mg/dL (70-99) Microbiology 10/08/16 Blood Culture - Preliminary, Resulted NO GROWTH AFTER 4 DAYS 10/09/16 Urine Culture - Final, Complete 10/09/16 Urine Culture Result 1 (ROSALIND) - Final, Complete 10/10/16 Anaerobic/Aerobic Culture, Resulted Pending 10/10/16 Anaerobic Culture Result 1 (ROSALIND), Resulted Pending 10/10/16 Aerobic Culture - Final, Resulted 10/10/16 Aerobic Culture Result 1 (ROSALIND) - Final, Resulted Medications Current Medications Vancomycin HCl (Vanco Per Pharmacy) 1 each PRN DAILY PRN MC SEE COMMENTS Last administered on 10/11/16 14:06; Start 10/08/16 at 20:15; Stop 10/12/16 at 13:28 ; Status DC Gentamicin Sulfate 1 each PRN DAILY PRN MC SEE COMMENTS Last administered on 08:26; Start 10/08/16 at 20:15 Levofloxacin/ Dextrose 100 ml @ 100 mls/hr Q24H IV Last administered on 01:20; Start 10/08/16 at 21:00; Stop 10/09/16 at 08:36; Status DC Metronidazole 100 ml @ 100 mls/hr Q12HR IV Last administered on 10/09/16 03: 42; Start 10/08/16 at 21:00; Stop 10/09/16 at 08:36; Status DC Ondansetron HCl (Zofran) 4 mg PRN Q6HRS PRN IV NAUSEA/VOMITING Last administered on 10/13/16 03:30; Start 10/08/16 at 20:15 Acetaminophen (Tylenol) 650 mg PRN Q6HRS PRN PO FEVER; Start 10/08/16 at 20:15 Morphine Sulfate 2 mg PRN Q2HR PRN IV PAIN; Start 10/08/16 at 20:15; Stop 10/08 at 21:26; Status DC Acetaminophen/ Hydrocodone Bitart (Lortab 5/325) 1 tab PRN Q4HRS PRN PO MODERATE TO SEVERE PAIN Last administered on 10/12/16 03:32; Start 10/08/16 at 20:15 Fentanyl Citrate (Fentanyl 2ml Vial) 50 mcg PRN Q2HR PRN IV PAIN Last administered on 10/09/16 20:28; Start 10/08/16 at 21:30 Aspirin (Anthony Aspirin) 325 mg DAILY PO Last administered on 10/13/16 09:29; Start 10/09/16 at 09:00 Carvedilol (Coreg) 12.5 mg BIDWMEALS PO Last administered on 10/13/16 09:32; Start 10/09/16 at 08:00 Docusate Sodium (Colace) 100 mg PRN BID PRN PO CONSTIPATION; Start 10/08/16 at 21:30; Stop 10/11/16 at 08:05; Status DC Fluconazole (Diflucan) 100 mg DAILY16 PO Last administered on 10/12/16 16:17; Start 10/09/16 at 16:00 Vitamin B Complex/ Vitamin C (Melly-Shabbir) 1 tab DAILY PO Last administered on 09:31; Start 10/09/16 at 09:00 Furosemide (Lasix) 80 mg BID92 PO Last administered on 10/13/16 11:45; Start 10/09/16 at 09:00 Morphine Sulfate (Ms Contin) 15 mg BID PO ; Start 10/09/16 at 21:30; Stop at 21:30; Status DC Nitroglycerin (Nitrostat) 0.4 mg PRN Q5MIN PRN SL CHEST PAIN; Start 10/08/16 at 21:30 Oxycodone/ Acetaminophen (Percocet 10/325) 1 tab Q4HRS PO Last administered on 10/13/16 11:44; Start 10/09/16 at 00:00 Sevelamer Carbonate (Renvela) 800 mg TIDWMEALS PO Last administered on 11:44; Start 10/09/16 at 08:00 Tramadol HCl (Ultram) 50 mg PRN Q6HRS PRN PO MILD TO MODERATE PAIN; Start 10/08 at 21:30 Atorvastatin Calcium (Lipitor) 80 mg QHS PO Last administered on 10/12/16 19: 41; Start 10/09/16 at 21:00 Fenofibrate (Lofibra) 134 mg QHS PO Last administered on 10/12/16 19:42; Start 10/08/16 at 22:00 Niacin (Slo-Niacin) 500 mg QHS PO Last administered on 10/12/16 19:41; Start 10/09/16 at 21:00 Non-Formulary Medication 210 mg TIDWMEALS PO ; Start 10/09/16 at 08:00; Status UNV Diphenhydramine HCl (Benadryl) 25 mg PRN Q6HRS PRN IVP ITCHING Last administered on 10/12/16 19:40; Start 10/08/16 at 21:30 Diphenhydramine HCl (Benadryl) 25 mg TID PO ; Start 10/08/16 at 21:30; Status Cancel Heparin Sodium (Porcine) (Heparin Sq) 5,000 unit Q8HRS SQ Last administered on 10/13/16 09:40; Start 10/08/16 at 22:00 Vancomycin HCl 2 gm/Sodium Chloride 500 ml @ 250 mls/hr 1X ONCE IV Last administered on 10/09/16 00:09; Start 10/08/16 at 22:00; Stop 10/08/16 at 23:59 ; Status DC Morphine Sulfate (Ms Contin) 15 mg BID PO Last administered on 10/13/16 11:44 ; Start 10/08/16 at 22:00 Diphenhydramine HCl (Benadryl) 50 mg TID PO Last administered on 10/13/16 11: 45; Start 10/08/16 at 22:00 Gentamicin Sulfate 170 mg/ Sodium Chloride 104.25 ml @ 104.25 mls/hr 1X ONCE IV ; Start 10/08/16 at 22:00; Stop 10/08/16 at 22:59; Status Cancel Gentamicin Sulfate 145 mg/ Sodium Chloride 103.625 ml @ 103.625 mls/hr 1X ONCE IV Last administered on 10/08/16 22:51; Start 10/08/16 at 23:00; Stop at 23:59; Status DC Gentamicin Sulfate 1 each 1X ONCE MC Last administered on 10/09/16 09:00; Start 10/09/16 at 09:00; Stop 10/09/16 at 09:01; Status DC Vancomycin HCl 1 each 1X ONCE MC Last administered on 10/11/16 05:00; Start 10/11/16 at 05:00; Stop 10/11/16 at 05:01; Status DC Diphenhydramine HCl (Benadryl) 50 mg 1X ONCE PO Last administered on 03:55; Start 10/09/16 at 04:00; Stop 10/09/16 at 04:01; Status DC Levofloxacin/ Dextrose 100 ml @ 100 mls/hr Q48H IV Last administered on 21:10; Start 10/10/16 at 21:00; Stop 10/12/16 at 13:28; Status DC Metronidazole 100 ml @ 100 mls/hr Q8HRS IV Last administered on 10/12/16 06: 25; Start 10/09/16 at 14:00; Stop 10/12/16 at 13:28; Status DC Insulin Aspart (NovoLOG) 0-9 UNITS TIDWMEALS SQ ; Start 10/09/16 at 12:00; Stop 10/09/16 at 21:16; Status DC Dextrose (Dextrose 50%-Water Syringe) 12.5 gm PRN Q15MIN PRN IV SEE COMMENTS; Start 10/09/16 at 09:30 Sodium Chloride 1,000 ml @ 1,000 mls/hr Q1H PRN IV hypotension; Start 10/09/16 at 11:48; Stop 10/09/16 at 17:47; Status DC Albumin Human 200 ml @ 200 mls/hr 1X PRN PRN IV Hypotension; Start 10/09/16 at 12:00; Stop 10/09/16 at 17:59; Status DC Diphenhydramine HCl (Benadryl) 25 mg 1X PRN PRN IV ITCHING; Start 10/09/16 at 12:00; Stop 10/10/16 at 11:59; Status DC Diphenhydramine HCl (Benadryl) 25 mg 1X PRN PRN IV ITCHING; Start 10/09/16 at 12:00; Stop 10/10/16 at 11:59; Status DC Sodium Chloride 1,000 ml @ 400 mls/hr Q2H30M PRN IV PATENCY; Start 10/09/16 at 11:48; Stop 10/09/16 at 23:47; Status DC Info (PHARMACY MONITORING -- do not chart) 1 each PRN DAILY PRN MC SEE COMMENTS ; Start 10/09/16 at 12:00 Lidocaine HCl (Xylocaine-Mpf 1% Vial) 0.5 ml 1X STAT ID ; Start 10/09/16 at 12: 06; Stop 10/09/16 at 12:14; Status DC Insulin Aspart (NovoLOG) 0-9 UNITS QIDACHS SQ ; Start 10/10/16 at 07:30; Stop at 07:30; Status DC Insulin Detemir (Levemir) 4 units QHS SQ ; Start 10/09/16 at 21:30; Stop at 11:49; Status DC Morphine Sulfate 4 mg PRN Q3HRS PRN IV PAIN Last administered on 10/10/16 21: 13; Start 10/09/16 at 23:00 Insulin Aspart (NovoLOG) 0-9 UNITS QIDACHS SQ Last administered on 10/09/16 23 :21; Start 10/09/16 at 07:30; Stop 10/09/16 at 23:45; Status DC Insulin Aspart (NovoLOG) 0-9 UNITS QIDACHS SQ ; Start 10/09/16 at 23:55 Lidocaine HCl (Xylocaine-Mpf 1% Vial) 2 ml STK-MED ONCE .ROUTE ; Start 10/09/16 at 12:00; Stop 10/10/16 at 08:27; Status DC Valacyclovir HCl (Valtrex) 500 mg DAILY PO Last administered on 10/13/16 09:00 ; Start 10/10/16 at 09:00 Alteplase, Recombinant (Cathflo) 2 mg 1X ONCE INT CAT Last administered on 10:18; Start 10/10/16 at 10:00; Stop 10/10/16 at 10:01; Status DC Bupivacaine HCl (Sensorcaine Mpf 0.5%) 30 ml STK-MED ONCE .ROUTE ; Start at 10:29; Stop 10/10/16 at 10:30; Status DC Lidocaine HCl 20 ml STK-MED ONCE .ROUTE ; Start 10/10/16 at 10:29; Stop at 10:30; Status DC Fentanyl Citrate (Fentanyl 2ml Vial) 50 mcg PRN Q5MIN PRN IV Acute Pain Last administered on 10/10/16 12:51; Start 10/10/16 at 11:00; Stop 10/11/16 at 10:59 ; Status DC Morphine Sulfate 4 mg PRN Q10MIN PRN IV Moderate Pain Last administered on 10/10 12:56; Start 10/10/16 at 11:00; Stop 10/11/16 at 10:59; Status DC Hydromorphone HCl (Dilaudid) 0.4 mg PRN Q10MIN PRN IV Moderate to severe pain Last administered on 10/11/16 09:04; Start 10/10/16 at 11:00; Stop 10/11/16 at 10:59; Status DC Meperidine HCl (Demerol) 12.5 mg PRN Q5MIN PRN IV SHIVERING; Start 10/10/16 at 11:00; Stop 10/11/16 at 10:59; Status DC Prochlorperazine Edisylate (Compazine) 5 mg PRN Q6HRS PRN IV Nausea/Vomiting, 1st Choice; Start 10/10/16 at 11:00; Stop 10/11/16 at 10:59; Status DC Diphenhydramine HCl (Benadryl) 12.5 mg PRN Q2HR PRN IV ITCHING; Start 10/10/16 at 11:00; Stop 10/11/16 at 10:59; Status DC Midazolam HCl (Versed) 2 mg PRN 1X PRN IV PRIOR TO PROCEDURE; Start 10/10/16 at 11:00; Stop 10/11/16 at 10:59; Status DC Midazolam HCl (Versed) 1 mg PRN 1X PRN IV PRIOR TO PROCEDURE; Start 10/10/16 at 11:00; Stop 10/11/16 at 10:59; Status DC Fentanyl Citrate (Fentanyl 2ml Vial) 25 mcg PRN Q5MIN PRN IV X 2 DOSES FOR PAIN ; Start 10/10/16 at 11:00; Stop 10/11/16 at 10:59; Status DC Fentanyl Citrate (Fentanyl 2ml Vial) 50 mcg PRN Q5MIN PRN IV X 2 DOSES FOR PAIN Last administered on 10/10/16 12:34; Start 10/10/16 at 11:00; Stop at 10:59; Status DC Ringer's Solution 1,000 ml @ 125 mls/hr Q8H IV ; Start 10/10/16 at 10:51; Stop 10/10/16 at 22:50; Status DC Lidocaine HCl 2 ml 1X PRN PRN ID IV START; Start 10/10/16 at 11:00; Stop at 10:59; Status DC Sodium Chloride 1,000 ml @ 0 mls/hr 1X ONCE IV ; Start 10/10/16 at 11:00; Stop 10/10/16 at 11:01; Status DC Lidocaine HCl 20 ml STK-MED ONCE .ROUTE ; Start 10/10/16 at 10:58; Stop at 10:59; Status DC Propofol 50 ml @ As Directed STK-MED ONCE IV ; Start 10/10/16 at 11:39; Stop at 11:40; Status DC Iodixanol (Visipaque 320) 50 ml STK-MED ONCE .ROUTE ; Start 10/10/16 at 12:51; Stop 10/10/16 at 12:52; Status DC Iohexol (Omnipaque 300 Mg/ml) 100 ml STK-MED ONCE .ROUTE ; Start 10/10/16 at 12: 51; Stop 10/10/16 at 12:52; Status DC Lidocaine/Sodium Bicarbonate (Buffered Lidocaine 1%) 20 ml STK-MED ONCE IJ ; Start 10/10/16 at 12:51; Stop 10/10/16 at 12:52; Status DC Midazolam HCl (Versed) 5 mg STK-MED ONCE .ROUTE ; Start 10/10/16 at 12:51; Stop 10/10/16 at 12:52; Status DC Fentanyl Citrate (Fentanyl 5ml Vial) 250 mcg STK-MED ONCE .ROUTE ; Start at 12:51; Stop 10/10/16 at 12:52; Status DC Heparin Sodium/ Sodium Chloride 1,500 ml @ As Directed STK-MED ONCE .ROUTE ; Start 10/10/16 at 12:52; Stop 10/10/16 at 12:53; Status DC Iodixanol (Visipaque 320) 100 ml STK-MED ONCE .ROUTE ; Start 10/10/16 at 12:52; Stop 10/10/16 at 12:53; Status DC Heparin Sodium/ Sodium Chloride 2,000 unit 1X ONCE IART Last administered on t 16:39; Start 10/10/16 at 13:00; Stop 10/10/16 at 13:01; Status DC Heparin Sodium/ Sodium Chloride 1,000 unit 1X ONCE IART Last administered on 16:39; Start 10/10/16 at 13:00; Stop 10/10/16 at 13:01; Status DC Lidocaine/Sodium Bicarbonate (Buffered Lidocaine 1%) 20 ml 1X ONCE IJ Last administered on 10/10/16 16:40; Start 10/10/16 at 13:00; Stop 10/10/16 at 13:01 ; Status DC Midazolam HCl (Versed) 5 mg 1X ONCE IV Last administered on 10/10/16 16:40; Start 10/10/16 at 13:00; Stop 10/10/16 at 13:01; Status DC Fentanyl Citrate (Fentanyl 5ml Vial) 150 mcg 1X ONCE IV Last administered on 16:43; Start 10/10/16 at 13:00; Stop 10/10/16 at 13:01; Status DC Iohexol (Omnipaque 300 Mg/ml) 100 ml 1X ONCE IART Last administered on 16:39; Start 10/10/16 at 13:00; Stop 10/10/16 at 13:01; Status DC Iodixanol (Visipaque 320) 100 ml 1X ONCE IART Last administered on 10/10/16 16:39; Start 10/10/16 at 13:00; Stop 10/10/16 at 13:01; Status DC Info (Do NOT chart on this entry -- for MONITORING) 1 each PRN DAILY PRN MC SEE COMMENTS; Start 10/10/16 at 13:00; Stop 10/12/16 at 12:59; Status DC Gentamicin Sulfate 1 each 1X ONCE MC Last administered on 10/11/16 05:00; Start 10/11/16 at 05:00; Stop 10/11/16 at 05:01; Status DC Heparin Sodium (Porcine) (Heparin Sodium) 10,000 unit STK-MED ONCE .ROUTE ; Start 10/10/16 at 14:52; Stop 10/10/16 at 14:53; Status DC Heparin Sodium (Porcine) (Heparin Sodium) 5,000 unit 1X ONCE IV Last administered on 10/10/16 16:45; Start 10/10/16 at 14:55; Stop 10/10/16 at 15:02 ; Status DC Clopidogrel Bisulfate (Plavix) 600 mg 1X STAT PO Last administered on 18:40; Start 10/10/16 at 17:49; Stop 10/10/16 at 17:50; Status DC Clopidogrel Bisulfate (Plavix) 75 mg DAILYWBKFT PO Last administered on 09:03; Start 10/11/16 at 08:00; Stop 01/11/17 at 08:00 Hydromorphone HCl (Dilaudid) 0.2 mg PRN Q1HR PRN IVP SEVERE PAIN Last administered on 10/11/16 06:25; Start 10/10/16 at 22:45; Stop 10/11/16 at 08:05 ; Status DC Hydromorphone HCl (Dilaudid) 0.4 mg PRN Q1HR PRN IVP PAIN Last administered on 10/13/16 03:31; Start 10/11/16 at 08:15 Senna/Docusate Sodium (Senna Plus) 1 tab PRN BID PRN PO CONSTIPATION; Start at 08:15 Sodium Chloride 1,000 ml @ 1,000 mls/hr Q1H PRN IV hypotension; Start 10/11/16 at 08:14; Stop 10/11/16 at 14:13; Status DC Info (PHARMACY MONITORING -- do not chart) 1 each PRN DAILY PRN MC SEE COMMENTS ; Start 10/11/16 at 08:15; Status Cancel Info (PHARMACY MONITORING -- do not chart) 1 each PRN DAILY PRN MC SEE COMMENTS ; Start 10/11/16 at 08:15; Status Cancel Gentamicin Sulfate 145 mg/ Sodium Chloride 103.625 ml @ 103.625 mls/hr 1X ONCE IV Last administered on 10/11/16 11:36; Start 10/11/16 at 12:00; Stop at 12:59; Status DC Vancomycin HCl 500 mg/Sodium Chloride 100 ml @ 100 mls/hr 1X ONCE IV Last administered on 10/11/16 15:31; Start 10/11/16 at 15:00; Stop 10/11/16 at 15:59 ; Status DC Vancomycin HCl 1 each 1X ONCE MC ; Start 10/14/16 at 05:00; Stop 10/14/16 at 05 :01; Status Cancel Gentamicin Sulfate 1 each 1X ONCE MC ; Start 10/14/16 at 05:00; Stop 10/14/16 at 05:01 Cefazolin Sodium 1 gm/Sodium Chloride 50 ml @ 100 mls/hr Q24H IV Last administered on 10/12/16 15:18; Start 10/12/16 at 15:00 Pantoprazole Sodium (Protonix) 40 mg DAILYAC PO Last administered on 10/13/16 03:30; Start 10/12/16 at 18:30 Active Scripts Active Percocet 10-325 Mg Tablet (Oxycodone/Acetaminophen) 1 Each Tablet 1 Tab PO Q4HRS Fluconazole 100 Mg Tablet 100 Mg PO DAILY16 Renvela (Sevelamer Carbonate) 800 Mg Tablet 800 Mg PO TIDWMEALS Morphine Sulfate Er (Morphine Sulfate) 15 Mg Tablet.er 15 Mg PO BID Reported Zofran (Ondansetron Hcl) 4 Mg Tablet 4 Mg PO Q6-8HRS PRN Lantus Solostar (Insulin Glargine,Hum.rec.anlog) 100 Unit/1 Ml Insuln.pen 10 Unit SQ QHS [auryxia] 210 Mg PO TIDWMEALS Carvedilol 12.5 Mg Tablet 1 Tab PO DAILY Carvedilol 12.5 Mg Tablet 1 Tab PO BID Nephro-Shabbir Tablet (Folic Acid/Vitamin B Comp W-C) 0.8 Mg Tablet 1 Tab PO DAILY Fluconazole 100 Mg Tablet 150 Mg PO PRN PRN Tramadol Hcl 50 Mg Tablet 50 Mg PO Q6H PRN Tricor (Fenofibrate Nanocrystallized) 145 Mg Tablet 1 Tab PO HS Lipitor (Atorvastatin Calcium) 80 Mg Tablet 80 Mg PO HS Niacin 500 Mg Tablet 500 Mg PO HS Novolog (Insulin Aspart) 100 Unit/1 Ml Cartridge 0 SQ TIDAC sliding scale Aspirin 325 Mg Tablet 325 Mg PO DAILY Furosemide 80 Mg Tablet 80 Mg PO BID Docusate Sodium 100 Mg Capsule 1 Cap PO PRN PRN Nitrostat (Nitroglycerin) 0.4 Mg Tab.subl 0.4 Mg SL PRN Q5MIN PRN Take as needed for chest pain Vitals/I & O Vital Sign - Last 24 Hours 10/12/16 10/12/16 10/12/16 10/12/16 12:18 12:20 13:02 13:42 Pulse Ox 95 95 95 O2 Delivery Room Air Room Air Room Air O2 Flow Rate 2.0 2.0 2.0 2.0 10/12/16 10/12/16 10/12/16 10/12/16 15:00 15:22 16:17 16:19 Temp 97.6 97.6 Pulse 76 76 Resp 20 B/P (MAP) 114/55 (74) 114/55 Pulse Ox 98 95 95 O2 Delivery Room Air Room Air Room Air O2 Flow Rate 2.0 2.0 10/12/16 10/12/16 10/12/16 10/12/16 16:19 17:15 18:38 19:00 Temp 97.7 97.7 Pulse 82 Resp 18 B/P (MAP) 159/68 (98) Pulse Ox 95 95 95 O2 Delivery Room Air Room Air Room Air O2 Flow Rate 2.0 2.0 2.0 10/12/16 10/12/16 10/12/16 10/12/16 19:12 19:40 19:44 19:44 Resp 20 20 20 Pulse Ox 95 95 95 O2 Delivery Room Air Room Air Room Air O2 Flow Rate 2.0 10/12/16 10/12/16 10/12/16 10/12/16 20:15 23:00 23:08 23:09 Temp 98.4 98.4 Pulse 91 Resp 18 20 20 B/P (MAP) 173/88 (116) Pulse Ox 96 95 95 O2 Delivery Room Air Room Air Room Air Room Air 10/12/16 10/12/16 10/13/16 10/13/16 23:44 23:44 00:09 03:00 Temp 98.2 98.2 Pulse 90 Resp 20 20 20 18 B/P (MAP) 150/100 (117) Pulse Ox 95 95 95 96 O2 Delivery Room Air Room Air Room Air 10/13/16 10/13/16 10/13/16 10/13/16 03:30 03:31 07:00 08:00 Temp 98.4 98.4 Pulse 90 Resp 20 20 18 B/P (MAP) 136/65 (88) Pulse Ox 95 95 97 O2 Delivery Room Air Room Air Room Air Room Air 10/13/16 10/13/16 10/13/16 10/13/16 09:00 09:32 10:58 11:03 Temp 98.2 98.2 Pulse 90 88 Resp 20 B/P (MAP) 136/65 128/70 (89) Pulse Ox 95 O2 Delivery Room Air Room Air Room Air 10/13/16 10/13/16 11:44 11:44 Pulse Ox 95 O2 Delivery Room Air Room Air Intake and Output 10/12/16 10/12/16 10/13/16 15:00 23:00 07:00 Intake Total 100 ml 50 ml Output Total 0 ml Balance 100 ml 50 ml ROSMERY QUIROGA DO Oct 13, 2016 12:09
--- NOTE | 2016-10-13 12:21 | PDOC ---
SUBJECTIVE ROS ESRD DOign and feeling well overall CVS: no Orthopnea, no CP RESP: no SOB, no SAVAGE GI: no Nausea, no Vomiting : no Dysuria, no Urgency OBJECTIVE Vital Signs Vital Signs Date Time Temp Pulse Resp B/P (MAP) Pulse Ox O2 Delivery O2 Flow Rate FiO2 10/13/16 11:44 95 Room Air 10/13/16 11:03 98.2 88 20 128/70 (89) 98.2 10/12/16 19:12 2.0 I & 0 Intake and Output 10/13/16 07:00 Intake Total 150 ml Output Total 0 ml Balance 150 ml IV Total 150 ml Output Urine Total 0 ml # Voids 2 PHYSICAL EXAM Physical Exam GEN: Awake, Oriented x 3, In no distress EYES: Vision Unchanged, Conjunctiva Normal EN: No EN Drainage, Mucous Membranes moist NECK: no JVD, min JVP, Supple, no Thyromegaly CVS: S1S2, + Murmur, No Gallop, No Rub,+ Edema RESP: no Rales, no Rhonchi,no Acc. Muscle Use GI: BS + ve, NO Bruit, Non Tender, Non Distended : no CVA tenderness, no Suprapubic Tenderness DIAGNOSIS/ASSESSMENT Assessment & Plan ESRD: Current fluid and E-lyte status does not necessitate emergent need for dialysis. Will re-evaluate for dialysis in the am and continue on TTSat schedule. ANEMIA; Aranap as ordered, Transfuse with next HD as needed HTN: Current BP meds as reviewed. See orders for changes. BONE & MINERAL: Follo PHos levels and alter binder regimen as needed Osteomyelitis - on IV Abx per ID Problems: COMMENT/RELEVANT DATA Meds Current Medications Medications (Trade) Dose Ordered Sig/Martin Start Time Stop Time Status Last Admin Dose Admin Acetaminophen (Tylenol) 650 mg PRN Q6HRS PRN 10/08/16 20:15 Acetaminophen/ Hydrocodone Bitart (Lortab 5/325) 1 tab PRN Q4HRS PRN 10/08/16 20:15 10/12/16 03:32 1 TAB Albumin Human 200 ml @ 200 mls/hr 1X PRN PRN 10/09/16 12:00 10/09/16 17:59 DC Alteplase, Recombinant (Cathflo) 2 mg 1X ONCE 10/10/16 10:00 10/10/16 10:01 DC 10/10/16 10:18 2 MG Aspirin (Anthony Aspirin) 325 mg DAILY 10/09/16 09:00 10/13/16 09:29 325 MG Atorvastatin Calcium (Lipitor) 80 mg QHS 10/09/16 21:00 10/12/16 19:41 80 MG Bupivacaine HCl (Sensorcaine Mpf 0.5%) 30 ml STK-MED ONCE 10/10/16 10:29 10/10/16 10:30 DC Carvedilol (Coreg) 12.5 mg BIDWMEALS 10/09/16 08:00 10/13/16 09:32 12.5 MG Cefazolin Sodium 1 gm/Sodium Chloride 50 ml @ 100 mls/hr Q24H 10/12/16 15:00 10/12/16 15:18 100 MLS/HR Clopidogrel Bisulfate (Plavix) 75 mg DAILYWBKFT 10/11/16 08:00 01/11/17 08:00 10/12/16 09:03 75 MG Dextrose (Dextrose 50%-Water Syringe) 12.5 gm PRN Q15MIN PRN 10/09/16 09:30 Diphenhydramine HCl (Benadryl) 12.5 mg PRN Q2HR PRN 10/10/16 11:00 10/11/16 10:59 DC Docusate Sodium (Colace) 100 mg PRN BID PRN 10/08/16 21:30 10/11/16 08:05 DC Fenofibrate (Lofibra) 134 mg QHS 10/08/16 22:00 10/12/16 19:42 134 MG Fentanyl Citrate (Fentanyl 2ml Vial) 50 mcg PRN Q5MIN PRN 10/10/16 11:00 10/11/16 10:59 DC 10/10/16 12:34 50 MCG Fentanyl Citrate (Fentanyl 5ml Vial) 150 mcg 1X ONCE 10/10/16 13:00 10/10/16 13:01 DC 10/10/16 16:43 250 MCG Fluconazole (Diflucan) 100 mg DAILY16 10/09/16 16:00 10/12/16 16:17 100 MG Furosemide (Lasix) 80 mg BID92 10/09/16 09:00 10/13/16 11:45 80 MG Gentamicin Sulfate 145 mg/ Sodium Chloride 103.625 ml @ 103.625 mls/hr 1X ONCE 10/11/16 12:00 10/11/16 12:59 DC 10/11/16 11:36 103.625 MLS/HR Gentamicin Sulfate 170 mg/ Sodium Chloride 104.25 ml @ 104.25 mls/hr 1X ONCE 10/08/16 22:00 10/08/16 22:59 Cancel Gentamicin Sulfate 1 each 1X ONCE 10/14/16 05:00 10/14/16 05:01 Heparin Sodium (Porcine) (Heparin Sodium) 5,000 unit 1X ONCE 10/10/16 14:55 10/10/16 15:02 DC 10/10/16 16:45 8,000 UNIT Heparin Sodium (Porcine) (Heparin Sq) 5,000 unit Q8HRS 10/08/16 22:00 10/13/16 09:40 5,000 UNIT Heparin Sodium/ Sodium Chloride 1,000 unit 1X ONCE 10/10/16 13:00 10/10/16 13:01 DC 10/10/16 16:39 1,000 UNIT Hydromorphone HCl (Dilaudid) 0.4 mg PRN Q1HR PRN 10/11/16 08:15 10/13/16 03:31 0.4 MG Info (Do NOT chart on this entry -- for MONITORING) 1 each PRN DAILY PRN 10/10/16 13:00 10/12/16 12:59 DC Info (PHARMACY MONITORING -- do not chart) 1 each PRN DAILY PRN 10/11/16 08:15 Cancel Insulin Aspart (NovoLOG) 0-9 UNITS QIDACHS 10/09/16 23:55 Insulin Detemir (Levemir) 4 units QHS 10/09/16 21:30 10/10/16 11:49 DC Iodixanol (Visipaque 320) 100 ml 1X ONCE 10/10/16 13:00 10/10/16 13:01 DC 10/10/16 16:39 90 ML Iohexol (Omnipaque 300 Mg/ml) 100 ml 1X ONCE 10/10/16 13:00 10/10/16 13:01 DC 10/10/16 16:39 50 ML Levofloxacin/ Dextrose 100 ml @ 100 mls/hr Q48H 10/10/16 21:00 10/12/16 13:28 DC 10/10/16 21:10 100 MLS/HR Lidocaine HCl 20 ml STK-MED ONCE 10/10/16 10:58 10/10/16 10:59 DC Lidocaine HCl (Xylocaine-Mpf 1% Vial) 2 ml STK-MED ONCE 10/09/16 12:00 10/10/16 08:27 DC Lidocaine/Sodium Bicarbonate (Buffered Lidocaine 1%) 20 ml 1X ONCE 10/10/16 13:00 10/10/16 13:01 DC 10/10/16 16:40 20 ML Meperidine HCl (Demerol) 12.5 mg PRN Q5MIN PRN 10/10/16 11:00 10/11/16 10:59 DC Metronidazole 100 ml @ 100 mls/hr Q8HRS 10/09/16 14:00 10/12/16 13:28 DC 10/12/16 06:25 100 MLS/HR Midazolam HCl (Versed) 5 mg 1X ONCE 10/10/16 13:00 10/10/16 13:01 DC 10/10/16 16:40 5 MG Morphine Sulfate 4 mg PRN Q10MIN PRN 10/10/16 11:00 10/11/16 10:59 DC 10/10/16 12:56 4 MG Morphine Sulfate (Ms Contin) 15 mg BID 10/08/16 22:00 10/13/16 11:44 15 MG Niacin (Slo-Niacin) 500 mg QHS 10/09/16 21:00 10/12/16 19:41 500 MG Nitroglycerin (Nitrostat) 0.4 mg PRN Q5MIN PRN 10/08/16 21:30 Non-Formulary Medication 210 mg TIDWMEALS 10/09/16 08:00 UNV Ondansetron HCl (Zofran) 4 mg PRN Q6HRS PRN 10/08/16 20:15 10/13/16 03:30 4 MG Oxycodone/ Acetaminophen (Percocet 10/325) 1 tab Q4HRS 10/09/16 00:00 10/13/16 11:44 1 TAB Pantoprazole Sodium (Protonix) 40 mg DAILYAC 10/12/16 18:30 10/13/16 03:30 40 MG Prochlorperazine Edisylate (Compazine) 5 mg PRN Q6HRS PRN 10/10/16 11:00 10/11/16 10:59 DC Propofol 50 ml @ As Directed STK-MED ONCE 10/10/16 11:39 10/10/16 11:40 DC Ringer's Solution 1,000 ml @ 125 mls/hr Q8H 10/10/16 10:51 10/10/16 22:50 DC Senna/Docusate Sodium (Senna Plus) 1 tab PRN BID PRN 10/11/16 08:15 Sevelamer Carbonate (Renvela) 800 mg TIDWMEALS 10/09/16 08:00 10/13/16 11:44 800 MG Sodium Chloride 1,000 ml @ 1,000 mls/hr Q1H PRN 10/11/16 08:14 10/11/16 14:13 DC Tramadol HCl (Ultram) 50 mg PRN Q6HRS PRN 10/08/16 21:30 Valacyclovir HCl (Valtrex) 500 mg DAILY 10/10/16 09:00 10/13/16 09:00 500 MG Vancomycin HCl 1 each 1X ONCE 10/14/16 05:00 10/14/16 05:01 Cancel Vancomycin HCl (Vanco Per Pharmacy) 1 each PRN DAILY PRN 10/08/16 20:15 10/12/16 13:28 DC 10/11/16 14:06 1 EACH Vancomycin HCl 500 mg/Sodium Chloride 100 ml @ 100 mls/hr 1X ONCE 10/11/16 15:00 10/11/16 15:59 DC 10/11/16 15:31 100 MLS/HR Vancomycin HCl 2 gm/Sodium Chloride 500 ml @ 250 mls/hr 1X ONCE 10/08/16 22:00 10/08/16 23:59 DC 10/09/16 00:09 250 MLS/HR Vitamin B Complex/ Vitamin C (Melly-Shabbir) 1 tab DAILY 10/09/16 09:00 10/13/16 09:31 1 TAB Lab Laboratory Tests Test 10/12/16 16:38 10/12/16 19:38 10/13/16 03:39 10/13/16 07:22 Glucose (Fingerstick) 128 mg/dL (70-99) 99 mg/dL (70-99) 74 mg/dL (70-99) 77 mg/dL (70-99) Test 10/13/16 10:46 Glucose (Fingerstick) 85 mg/dL (70-99) BEAR LÓPEZ MD Oct 13, 2016 12:21
--- NOTE | 2016-10-13 12:39 | PATHOLOGY ---
PATHOLOGY REPORT * * * * * * * * FINAL DIAGNOSIS: Toe "right toe", amputation: - Dermal fibrosis, chronic inflammation, and intraepithelial blister. - Focal area consistent with acute and chronic osteomyelitis. - All surgical resection margins are free of infection. REPORT ELECTRONICALLY SIGNED BY: Major Vazquez M.D. DATE/TIME: 10/13/2016 12:38 * * * * * * * * GROSS PATHOLOGY: The specimen is received in formalin labeled "Jamal Rosenbaum right great toe". Received is an amputated digit measuring 3.1 x 3.1 x 2.0 cm in greatest dimensions. The bone margin is smooth and concave in appearance, consistent with disarticulation. The bone and soft tissue margins are inked black. The skin is absent on the plantar aspect of the toe. The nail is present displaying a fitch-sherman and severely thickened appearance. The full-thickness longitudinal cross-section is submitted in cassette A1, following decalcification. Also received within the specimen tender is a second segment of bone displaying one smooth convex margin and one blunt margin, which is inked, measuring 2.2 x 1.2 x 0.9 cm in greatest dimensions. The full-thickness cross-section is submitted in cassette A2, following decalcification. (CAA; 10/11/2016) INITIAL CPT CODE(S): A; 71736, 78572 Professional services performed by [facility], [address] [place] [address]. Technical services performed by [facility], [address] [place] [address], [id number] [id number]. SPECIMEN(S) RECEIVED: A.Right great toe CLINICAL HISTORY: Osteomyelitis right toe PATIENT: JAMAL ROSENBAUM /AGE: 5 1965 (Age: 51) PATIENT #: [id number] ALT CASE #: SPECIMEN COLLECTION DATE: 10/10/2016 SPECIMEN RECEIVED DATE: 10/10/2016 [facility] - [address] [place] [address] - PHONE: [phone] * * * END OF REPORT * * *
--- NOTE | 2016-10-13 13:30 | PDOC ---
PROGRESS NOTES Chief Complaint Chief Complaint 1. R toe wound infection with h/o osteomyelitis post amputation 2 and 3rd toes, + right great toe osteomyelitis 2. ESRD on HD TTHS 3. AOCD 4. Left BKA 5. HX CABG 6. Left ear swelling and nape rash recently on cefazolin 7. Allergy to Zosyn and meropnemen with hemarrhagic rash 8. Indwelling left chest Central line 9. dm2 on low dose insulin 10. low Albumin with ESRD 11. possible PAD PLAN: On several abx per ID, D/W ID SSI vascular following cont HD DVT prophylaxis. pain control PT/OT Labs reviewed. dc tmr with iv abx. pt not feeling comfortable to leave today. History of Present Illness History of Present Illness sitting no acute events no fever Vitals Vitals Vital Signs Date Time Temp Pulse Resp B/P (MAP) Pulse Ox O2 Delivery O2 Flow Rate FiO2 10/13/16 11:44 95 Room Air 10/13/16 11:03 98.2 88 20 128/70 (89) 98.2 10/12/16 19:12 2.0 Physical Exam General: Alert, Oriented X3 Heart: Regular rate, Normal S1, Normal S2 Lungs: Clear Abdomen: Normal bowel sounds, Soft, No tenderness Extremities: No edema, Other Skin: Other (erythema around the right 1st toe, no purulent drainage) Labs LABS Laboratory Tests Test 10/12/16 16:38 10/12/16 19:38 10/13/16 03:39 10/13/16 07:22 Glucose (Fingerstick) 128 mg/dL (70-99) 99 mg/dL (70-99) 74 mg/dL (70-99) 77 mg/dL (70-99) Test 10/13/16 10:46 Glucose (Fingerstick) 85 mg/dL (70-99) Review of Systems Review of Systems no fever, chills, sob or chest pain Comment Review of Relevant I have reviewed the following items bert (where applicable) has been applied. Labs Laboratory Tests Test 10/11/16 16:55 10/11/16 20:42 10/12/16 03:30 10/12/16 08:16 Glucose (Fingerstick) 130 mg/dL (70-99) 117 mg/dL (70-99) 70 mg/dL (70-99) White Blood Count 8.4 x10^3/uL (4.0-11.0) Red Blood Count 3.19 x10^6/uL (3.50-5.40) Hemoglobin 10.0 g/dL (12.0-15.5) Hematocrit 30.0 % (36.0-47.0) Mean Corpuscular Volume 94 fL (79-100) Mean Corpuscular Hemoglobin 31 pg (25-35) Mean Corpuscular Hemoglobin Concent 33 g/dL (31-37) Red Cell Distribution Width 14.2 % (11.5-14.5) Platelet Count 259 x10^3/uL (140-400) Neutrophils (%) (Auto) 58 % (31-73) Lymphocytes (%) (Auto) 26 % (24-48) Monocytes (%) (Auto) 10 % (0-9) Eosinophils (%) (Auto) 5 % (0-3) Basophils (%) (Auto) 1 % (0-3) Neutrophils # (Auto) 4.9 x10^3uL (1.8-7.7) Lymphocytes # (Auto) 2.1 x10^3/uL (1.0-4.8) Monocytes # (Auto) 0.8 x10^3/uL (0.0-1.1) Eosinophils # (Auto) 0.4 x10^3/uL (0.0-0.7) Basophils # (Auto) 0.1 x10^3/uL (0.0-0.2) Prothrombin Time 16.7 SEC (11.7-14.0) Prothromb Time International Ratio 1.4 (0.8-1.1) Sodium Level 137 mmol/L (136-145) Potassium Level 4.1 mmol/L (3.5-5.1) Chloride Level 98 mmol/L (98-107) Carbon Dioxide Level 32 mmol/L (21-32) Anion Gap 7 (6-14) Blood Urea Nitrogen 27 mg/dL (7-20) Creatinine 3.9 mg/dL (0.6-1.0) Estimated GFR (Cockcroft-Gault) 12.2 Glucose Level 84 mg/dL (70-99) Calcium Level 8.1 mg/dL (8.5-10.1) Test 10/12/16 11:45 10/12/16 16:38 10/12/16 19:38 10/13/16 03:39 Glucose (Fingerstick) 90 mg/dL (70-99) 128 mg/dL (70-99) 99 mg/dL (70-99) 74 mg/dL (70-99) Test 10/13/16 07:22 10/13/16 10:46 Glucose (Fingerstick) 77 mg/dL (70-99) 85 mg/dL (70-99) Laboratory Tests Test 10/12/16 16:38 10/12/16 19:38 10/13/16 03:39 10/13/16 07:22 Glucose (Fingerstick) 128 mg/dL (70-99) 99 mg/dL (70-99) 74 mg/dL (70-99) 77 mg/dL (70-99) Test 10/13/16 10:46 Glucose (Fingerstick) 85 mg/dL (70-99) Microbiology 10/08/16 Blood Culture - Preliminary, Resulted NO GROWTH AFTER 4 DAYS 10/09/16 Urine Culture - Final, Complete 10/09/16 Urine Culture Result 1 (ROSALIND) - Final, Complete 10/10/16 Anaerobic/Aerobic Culture - Final, Complete 10/10/16 Anaerobic Culture Result 1 (ROSALIND) - Final, Complete 10/10/16 Aerobic Culture - Final, Complete 10/10/16 Aerobic Culture Result 1 (ROSALIND) - Final, Complete Medications Current Medications Vancomycin HCl (Vanco Per Pharmacy) 1 each PRN DAILY PRN MC SEE COMMENTS Last administered on 10/11/16 14:06; Start 10/08/16 at 20:15; Stop 10/12/16 at 13:28 ; Status DC Gentamicin Sulfate 1 each PRN DAILY PRN MC SEE COMMENTS Last administered on 08:26; Start 10/08/16 at 20:15 Levofloxacin/ Dextrose 100 ml @ 100 mls/hr Q24H IV Last administered on 01:20; Start 10/08/16 at 21:00; Stop 10/09/16 at 08:36; Status DC Metronidazole 100 ml @ 100 mls/hr Q12HR IV Last administered on 10/09/16 03: 42; Start 10/08/16 at 21:00; Stop 10/09/16 at 08:36; Status DC Ondansetron HCl (Zofran) 4 mg PRN Q6HRS PRN IV NAUSEA/VOMITING Last administered on 10/13/16 03:30; Start 10/08/16 at 20:15 Acetaminophen (Tylenol) 650 mg PRN Q6HRS PRN PO FEVER; Start 10/08/16 at 20:15 Morphine Sulfate 2 mg PRN Q2HR PRN IV PAIN; Start 10/08/16 at 20:15; Stop 10/08 at 21:26; Status DC Acetaminophen/ Hydrocodone Bitart (Lortab 5/325) 1 tab PRN Q4HRS PRN PO MODERATE TO SEVERE PAIN Last administered on 10/12/16 03:32; Start 10/08/16 at 20:15 Fentanyl Citrate (Fentanyl 2ml Vial) 50 mcg PRN Q2HR PRN IV PAIN Last administered on 10/09/16 20:28; Start 10/08/16 at 21:30 Aspirin (Anthony Aspirin) 325 mg DAILY PO Last administered on 10/13/16 09:29; Start 10/09/16 at 09:00 Carvedilol (Coreg) 12.5 mg BIDWMEALS PO Last administered on 10/13/16 09:32; Start 10/09/16 at 08:00 Docusate Sodium (Colace) 100 mg PRN BID PRN PO CONSTIPATION; Start 10/08/16 at 21:30; Stop 10/11/16 at 08:05; Status DC Fluconazole (Diflucan) 100 mg DAILY16 PO Last administered on 10/12/16 16:17; Start 10/09/16 at 16:00 Vitamin B Complex/ Vitamin C (Melly-Shabbir) 1 tab DAILY PO Last administered on 09:31; Start 10/09/16 at 09:00 Furosemide (Lasix) 80 mg BID92 PO Last administered on 10/13/16 11:45; Start 10/09/16 at 09:00 Morphine Sulfate (Ms Contin) 15 mg BID PO ; Start 10/09/16 at 21:30; Stop at 21:30; Status DC Nitroglycerin (Nitrostat) 0.4 mg PRN Q5MIN PRN SL CHEST PAIN; Start 10/08/16 at 21:30 Oxycodone/ Acetaminophen (Percocet 10/325) 1 tab Q4HRS PO Last administered on 10/13/16 11:44; Start 10/09/16 at 00:00 Sevelamer Carbonate (Renvela) 800 mg TIDWMEALS PO Last administered on 11:44; Start 10/09/16 at 08:00 Tramadol HCl (Ultram) 50 mg PRN Q6HRS PRN PO MILD TO MODERATE PAIN; Start 10/08 at 21:30 Atorvastatin Calcium (Lipitor) 80 mg QHS PO Last administered on 10/12/16 19: 41; Start 10/09/16 at 21:00 Fenofibrate (Lofibra) 134 mg QHS PO Last administered on 10/12/16 19:42; Start 10/08/16 at 22:00 Niacin (Slo-Niacin) 500 mg QHS PO Last administered on 10/12/16 19:41; Start 10/09/16 at 21:00 Non-Formulary Medication 210 mg TIDWMEALS PO ; Start 10/09/16 at 08:00; Status UNV Diphenhydramine HCl (Benadryl) 25 mg PRN Q6HRS PRN IVP ITCHING Last administered on 10/12/16 19:40; Start 10/08/16 at 21:30 Diphenhydramine HCl (Benadryl) 25 mg TID PO ; Start 10/08/16 at 21:30; Status Cancel Heparin Sodium (Porcine) (Heparin Sq) 5,000 unit Q8HRS SQ Last administered on 10/13/16 09:40; Start 10/08/16 at 22:00 Vancomycin HCl 2 gm/Sodium Chloride 500 ml @ 250 mls/hr 1X ONCE IV Last administered on 10/09/16 00:09; Start 10/08/16 at 22:00; Stop 10/08/16 at 23:59 ; Status DC Morphine Sulfate (Ms Contin) 15 mg BID PO Last administered on 10/13/16 11:44 ; Start 10/08/16 at 22:00 Diphenhydramine HCl (Benadryl) 50 mg TID PO Last administered on 10/13/16 11: 45; Start 10/08/16 at 22:00 Gentamicin Sulfate 170 mg/ Sodium Chloride 104.25 ml @ 104.25 mls/hr 1X ONCE IV ; Start 10/08/16 at 22:00; Stop 10/08/16 at 22:59; Status Cancel Gentamicin Sulfate 145 mg/ Sodium Chloride 103.625 ml @ 103.625 mls/hr 1X ONCE IV Last administered on 10/08/16 22:51; Start 10/08/16 at 23:00; Stop at 23:59; Status DC Gentamicin Sulfate 1 each 1X ONCE MC Last administered on 10/09/16 09:00; Start 10/09/16 at 09:00; Stop 10/09/16 at 09:01; Status DC Vancomycin HCl 1 each 1X ONCE MC Last administered on 10/11/16 05:00; Start 10/11/16 at 05:00; Stop 10/11/16 at 05:01; Status DC Diphenhydramine HCl (Benadryl) 50 mg 1X ONCE PO Last administered on 03:55; Start 10/09/16 at 04:00; Stop 10/09/16 at 04:01; Status DC Levofloxacin/ Dextrose 100 ml @ 100 mls/hr Q48H IV Last administered on 21:10; Start 10/10/16 at 21:00; Stop 10/12/16 at 13:28; Status DC Metronidazole 100 ml @ 100 mls/hr Q8HRS IV Last administered on 10/12/16 06: 25; Start 10/09/16 at 14:00; Stop 10/12/16 at 13:28; Status DC Insulin Aspart (NovoLOG) 0-9 UNITS TIDWMEALS SQ ; Start 10/09/16 at 12:00; Stop 10/09/16 at 21:16; Status DC Dextrose (Dextrose 50%-Water Syringe) 12.5 gm PRN Q15MIN PRN IV SEE COMMENTS; Start 10/09/16 at 09:30 Sodium Chloride 1,000 ml @ 1,000 mls/hr Q1H PRN IV hypotension; Start 10/09/16 at 11:48; Stop 10/09/16 at 17:47; Status DC Albumin Human 200 ml @ 200 mls/hr 1X PRN PRN IV Hypotension; Start 10/09/16 at 12:00; Stop 10/09/16 at 17:59; Status DC Diphenhydramine HCl (Benadryl) 25 mg 1X PRN PRN IV ITCHING; Start 10/09/16 at 12:00; Stop 10/10/16 at 11:59; Status DC Diphenhydramine HCl (Benadryl) 25 mg 1X PRN PRN IV ITCHING; Start 10/09/16 at 12:00; Stop 10/10/16 at 11:59; Status DC Sodium Chloride 1,000 ml @ 400 mls/hr Q2H30M PRN IV PATENCY; Start 10/09/16 at 11:48; Stop 10/09/16 at 23:47; Status DC Info (PHARMACY MONITORING -- do not chart) 1 each PRN DAILY PRN MC SEE COMMENTS ; Start 10/09/16 at 12:00 Lidocaine HCl (Xylocaine-Mpf 1% Vial) 0.5 ml 1X STAT ID ; Start 10/09/16 at 12: 06; Stop 10/09/16 at 12:14; Status DC Insulin Aspart (NovoLOG) 0-9 UNITS QIDACHS SQ ; Start 10/10/16 at 07:30; Stop at 07:30; Status DC Insulin Detemir (Levemir) 4 units QHS SQ ; Start 10/09/16 at 21:30; Stop at 11:49; Status DC Morphine Sulfate 4 mg PRN Q3HRS PRN IV PAIN Last administered on 10/10/16 21: 13; Start 10/09/16 at 23:00 Insulin Aspart (NovoLOG) 0-9 UNITS QIDACHS SQ Last administered on 10/09/16 23 :21; Start 10/09/16 at 07:30; Stop 10/09/16 at 23:45; Status DC Insulin Aspart (NovoLOG) 0-9 UNITS QIDACHS SQ ; Start 10/09/16 at 23:55 Lidocaine HCl (Xylocaine-Mpf 1% Vial) 2 ml STK-MED ONCE .ROUTE ; Start 10/09/16 at 12:00; Stop 10/10/16 at 08:27; Status DC Valacyclovir HCl (Valtrex) 500 mg DAILY PO Last administered on 10/13/16t 09:00 ; Start 10/10/16 at 09:00 Alteplase, Recombinant (Cathflo) 2 mg 1X ONCE INT CAT Last administered on 10:18; Start 10/10/16 at 10:00; Stop 10/10/16 at 10:01; Status DC Bupivacaine HCl (Sensorcaine Mpf 0.5%) 30 ml STK-MED ONCE .ROUTE ; Start at 10:29; Stop 10/10/16 at 10:30; Status DC Lidocaine HCl 20 ml STK-MED ONCE .ROUTE ; Start 10/10/16 at 10:29; Stop at 10:30; Status DC Fentanyl Citrate (Fentanyl 2ml Vial) 50 mcg PRN Q5MIN PRN IV Acute Pain Last administered on 10/10/16 12:51; Start 10/10/16 at 11:00; Stop 10/11/16 at 10:59 ; Status DC Morphine Sulfate 4 mg PRN Q10MIN PRN IV Moderate Pain Last administered on 10/10 12:56; Start 10/10/16 at 11:00; Stop 10/11/16 at 10:59; Status DC Hydromorphone HCl (Dilaudid) 0.4 mg PRN Q10MIN PRN IV Moderate to severe pain Last administered on 10/11/16 09:04; Start 10/10/16 at 11:00; Stop 10/11/16 at 10:59; Status DC Meperidine HCl (Demerol) 12.5 mg PRN Q5MIN PRN IV SHIVERING; Start 10/10/16 at 11:00; Stop 10/11/16 at 10:59; Status DC Prochlorperazine Edisylate (Compazine) 5 mg PRN Q6HRS PRN IV Nausea/Vomiting, 1st Choice; Start 10/10/16 at 11:00; Stop 10/11/16 at 10:59; Status DC Diphenhydramine HCl (Benadryl) 12.5 mg PRN Q2HR PRN IV ITCHING; Start 10/10/16 at 11:00; Stop 10/11/16 at 10:59; Status DC Midazolam HCl (Versed) 2 mg PRN 1X PRN IV PRIOR TO PROCEDURE; Start 10/10/16 at 11:00; Stop 10/11/16 at 10:59; Status DC Midazolam HCl (Versed) 1 mg PRN 1X PRN IV PRIOR TO PROCEDURE; Start 10/10/16 at 11:00; Stop 10/11/16 at 10:59; Status DC Fentanyl Citrate (Fentanyl 2ml Vial) 25 mcg PRN Q5MIN PRN IV X 2 DOSES FOR PAIN ; Start 10/10/16 at 11:00; Stop 10/11/16 at 10:59; Status DC Fentanyl Citrate (Fentanyl 2ml Vial) 50 mcg PRN Q5MIN PRN IV X 2 DOSES FOR PAIN Last administered on 10/10/16t 12:34; Start 10/10/16 at 11:00; Stop at 10:59; Status DC Ringer's Solution 1,000 ml @ 125 mls/hr Q8H IV ; Start 10/10/16 at 10:51; Stop 10/10/16 at 22:50; Status DC Lidocaine HCl 2 ml 1X PRN PRN ID IV START; Start 10/10/16 at 11:00; Stop at 10:59; Status DC Sodium Chloride 1,000 ml @ 0 mls/hr 1X ONCE IV ; Start 10/10/16 at 11:00; Stop 10/10/16 at 11:01; Status DC Lidocaine HCl 20 ml STK-MED ONCE .ROUTE ; Start 10/10/16 at 10:58; Stop at 10:59; Status DC Propofol 50 ml @ As Directed STK-MED ONCE IV ; Start 10/10/16 at 11:39; Stop at 11:40; Status DC Iodixanol (Visipaque 320) 50 ml STK-MED ONCE .ROUTE ; Start 10/10/16 at 12:51; Stop 10/10/16 at 12:52; Status DC Iohexol (Omnipaque 300 Mg/ml) 100 ml STK-MED ONCE .ROUTE ; Start 10/10/16 at 12: 51; Stop 10/10/16 at 12:52; Status DC Lidocaine/Sodium Bicarbonate (Buffered Lidocaine 1%) 20 ml STK-MED ONCE IJ ; Start 10/10/16 at 12:51; Stop 10/10/16 at 12:52; Status DC Midazolam HCl (Versed) 5 mg STK-MED ONCE .ROUTE ; Start 10/10/16 at 12:51; Stop 10/10/16 at 12:52; Status DC Fentanyl Citrate (Fentanyl 5ml Vial) 250 mcg STK-MED ONCE .ROUTE ; Start at 12:51; Stop 10/10/16 at 12:52; Status DC Heparin Sodium/ Sodium Chloride 1,500 ml @ As Directed STK-MED ONCE .ROUTE ; Start 10/10/16 at 12:52; Stop 10/10/16 at 12:53; Status DC Iodixanol (Visipaque 320) 100 ml STK-MED ONCE .ROUTE ; Start 10/10/16 at 12:52; Stop 10/10/16 at 12:53; Status DC Heparin Sodium/ Sodium Chloride 2,000 unit 1X ONCE IART Last administered on 16:39; Start 10/10/16 at 13:00; Stop 10/10/16 at 13:01; Status DC Heparin Sodium/ Sodium Chloride 1,000 unit 1X ONCE IART Last administered on 16:39; Start 10/10/16 at 13:00; Stop 10/10/16 at 13:01; Status DC Lidocaine/Sodium Bicarbonate (Buffered Lidocaine 1%) 20 ml 1X ONCE IJ Last administered on 10/10/16 16:40; Start 10/10/16 at 13:00; Stop 10/10/16 at 13:01 ; Status DC Midazolam HCl (Versed) 5 mg 1X ONCE IV Last administered on 10/10/16 16:40; Start 10/10/16 at 13:00; Stop 10/10/16 at 13:01; Status DC Fentanyl Citrate (Fentanyl 5ml Vial) 150 mcg 1X ONCE IV Last administered on 16:43; Start 10/10/16 at 13:00; Stop 10/10/16 at 13:01; Status DC Iohexol (Omnipaque 300 Mg/ml) 100 ml 1X ONCE IART Last administered on 16:39; Start 10/10/16 at 13:00; Stop 10/10/16 at 13:01; Status DC Iodixanol (Visipaque 320) 100 ml 1X ONCE IART Last administered on 10/10/16 16:39; Start 10/10/16 at 13:00; Stop 10/10/16 at 13:01; Status DC Info (Do NOT chart on this entry -- for MONITORING) 1 each PRN DAILY PRN MC SEE COMMENTS; Start 10/10/16 at 13:00; Stop 10/12/16 at 12:59; Status DC Gentamicin Sulfate 1 each 1X ONCE MC Last administered on 10/11/16 05:00; Start 10/11/16 at 05:00; Stop 10/11/16 at 05:01; Status DC Heparin Sodium (Porcine) (Heparin Sodium) 10,000 unit STK-MED ONCE .ROUTE ; Start 10/10/16 at 14:52; Stop 10/10/16 at 14:53; Status DC Heparin Sodium (Porcine) (Heparin Sodium) 5,000 unit 1X ONCE IV Last administered on 10/10/16 16:45; Start 10/10/16 at 14:55; Stop 10/10/16 at 15:02 ; Status DC Clopidogrel Bisulfate (Plavix) 600 mg 1X STAT PO Last administered on 18:40; Start 10/10/16 at 17:49; Stop 10/10/16 at 17:50; Status DC Clopidogrel Bisulfate (Plavix) 75 mg DAILYWBKFT PO Last administered on 09:03; Start 10/11/16 at 08:00; Stop 01/11/17 at 08:00 Hydromorphone HCl (Dilaudid) 0.2 mg PRN Q1HR PRN IVP SEVERE PAIN Last administered on 10/11/16 06:25; Start 10/10/16 at 22:45; Stop 10/11/16 at 08:05 ; Status DC Hydromorphone HCl (Dilaudid) 0.4 mg PRN Q1HR PRN IVP PAIN Last administered on 10/13/16 03:31; Start 10/11/16 at 08:15 Senna/Docusate Sodium (Senna Plus) 1 tab PRN BID PRN PO CONSTIPATION; Start at 08:15 Sodium Chloride 1,000 ml @ 1,000 mls/hr Q1H PRN IV hypotension; Start 10/11/16 at 08:14; Stop 10/11/16 at 14:13; Status DC Info (PHARMACY MONITORING -- do not chart) 1 each PRN DAILY PRN MC SEE COMMENTS ; Start 10/11/16 at 08:15; Status Cancel Info (PHARMACY MONITORING -- do not chart) 1 each PRN DAILY PRN MC SEE COMMENTS ; Start 10/11/16 at 08:15; Status Cancel Gentamicin Sulfate 145 mg/ Sodium Chloride 103.625 ml @ 103.625 mls/hr 1X ONCE IV Last administered on 10/11/16 11:36; Start 10/11/16 at 12:00; Stop at 12:59; Status DC Vancomycin HCl 500 mg/Sodium Chloride 100 ml @ 100 mls/hr 1X ONCE IV Last administered on 10/11/16 15:31; Start 10/11/16 at 15:00; Stop 10/11/16 at 15:59 ; Status DC Vancomycin HCl 1 each 1X ONCE MC ; Start 10/14/16 at 05:00; Stop 10/14/16 at 05 :01; Status Cancel Gentamicin Sulfate 1 each 1X ONCE MC ; Start 10/14/16 at 05:00; Stop 10/14/16 at 05:01 Cefazolin Sodium 1 gm/Sodium Chloride 50 ml @ 100 mls/hr Q24H IV Last administered on 10/12/16 15:18; Start 10/12/16 at 15:00 Pantoprazole Sodium (Protonix) 40 mg DAILYAC PO Last administered on 10/13/16 03:30; Start 10/12/16 at 18:30 Darbepoetin Mauricio (Aranesp) 60 mcg WEEKLYHS SQ ; Start 10/13/16 at 21:00 Active Scripts Active Percocet 10-325 Mg Tablet (Oxycodone/Acetaminophen) 1 Each Tablet 1 Tab PO Q4HRS Fluconazole 100 Mg Tablet 100 Mg PO DAILY16 Renvela (Sevelamer Carbonate) 800 Mg Tablet 800 Mg PO TIDWMEALS Morphine Sulfate Er (Morphine Sulfate) 15 Mg Tablet.er 15 Mg PO BID Reported Zofran (Ondansetron Hcl) 4 Mg Tablet 4 Mg PO Q6-8HRS PRN Lantus Solostar (Insulin Glargine,Hum.rec.anlog) 100 Unit/1 Ml Insuln.pen 10 Unit SQ QHS [auryxia] 210 Mg PO TIDWMEALS Carvedilol 12.5 Mg Tablet 1 Tab PO DAILY Carvedilol 12.5 Mg Tablet 1 Tab PO BID Nephro-Shabbir Tablet (Folic Acid/Vitamin B Comp W-C) 0.8 Mg Tablet 1 Tab PO DAILY Fluconazole 100 Mg Tablet 150 Mg PO PRN PRN Tramadol Hcl 50 Mg Tablet 50 Mg PO Q6H PRN Tricor (Fenofibrate Nanocrystallized) 145 Mg Tablet 1 Tab PO HS Lipitor (Atorvastatin Calcium) 80 Mg Tablet 80 Mg PO HS Niacin 500 Mg Tablet 500 Mg PO HS Novolog (Insulin Aspart) 100 Unit/1 Ml Cartridge 0 SQ TIDAC sliding scale Aspirin 325 Mg Tablet 325 Mg PO DAILY Furosemide 80 Mg Tablet 80 Mg PO BID Docusate Sodium 100 Mg Capsule 1 Cap PO PRN PRN Nitrostat (Nitroglycerin) 0.4 Mg Tab.subl 0.4 Mg SL PRN Q5MIN PRN Take as needed for chest pain Vitals/I & O Vital Sign - Last 24 Hours 10/12/16 10/12/16 10/12/16 10/12/16 13:42 15:00 15:22 16:17 Temp 97.6 97.6 Pulse 76 76 Resp 20 B/P (MAP) 114/55 (74) 114/55 Pulse Ox 95 98 95 O2 Delivery Room Air Room Air Room Air O2 Flow Rate 2.0 2.0 10/12/16 10/12/16 10/12/16 10/12/16 16:19 16:19 17:15 18:38 Pulse Ox 95 95 95 O2 Delivery Room Air Room Air Room Air O2 Flow Rate 2.0 2.0 2.0 2.0 10/12/16 10/12/16 10/12/16 10/12/16 19:00 19:12 19:40 19:44 Temp 97.7 97.7 Pulse 82 Resp 18 20 20 B/P (MAP) 159/68 (98) Pulse Ox 95 95 95 O2 Delivery Room Air Room Air Room Air O2 Flow Rate 2.0 10/12/16 10/12/16 10/12/16 10/12/16 19:44 20:15 23:00 23:08 Temp 98.4 98.4 Pulse 91 Resp 20 18 20 B/P (MAP) 173/88 (116) Pulse Ox 95 96 95 O2 Delivery Room Air Room Air Room Air Room Air 10/12/16 10/12/16 10/12/16 10/13/16 23:09 23:44 23:44 00:09 Resp 20 20 20 20 Pulse Ox 95 95 95 95 O2 Delivery Room Air Room Air Room Air 10/13/16 10/13/16 10/13/16 10/13/16 03:00 03:30 03:31 07:00 Temp 98.2 98.4 98.2 98.4 Pulse 90 90 Resp 18 20 20 18 B/P (MAP) 150/100 (117) 136/65 (88) Pulse Ox 96 95 95 97 O2 Delivery Room Air Room Air Room Air Room Air 10/13/16 10/13/16 10/13/16 10/13/16 08:00 08:15 09:00 09:32 Pulse 90 B/P (MAP) 136/65 O2 Delivery Room Air Room Air Room Air 10/13/16 10/13/16 10/13/16 10/13/16 10:58 11:03 11:44 11:44 Temp 98.2 98.2 Pulse 88 Resp 20 B/P (MAP) 128/70 (89) Pulse Ox 95 95 O2 Delivery Room Air Room Air Room Air Room Air Intake and Output 10/12/16 10/12/16 10/13/16 15:00 23:00 07:00 Intake Total 100 ml 50 ml Output Total 0 ml Balance 100 ml 50 ml QUIN BARRY MD Oct 13, 2016 13:30
[2016-10-13 15:00] VITALS: BP 144/72
[2016-10-13] MEDS: FLUCONAZOLE 100 MG TABLET. PO SCH (16:57)
[2016-10-13] MEDS: diphenhydrAMINE 50 MG/ML VIAL IVP PRN (17:05)
[2016-10-13 19:00] VITALS: BP 137/70
[2016-10-13] MEDS ORDERED: DARBEPOETIN ALFA 60 MCG/0.3 ML DISP.SYRIN. SQ SCH (21:00)
[2016-10-13] MEDS: NIACIN ER 500 MG TABLET.ER PO SCH (21:37)
[2016-10-13] MEDS: FENOFIBRATE,MICRONIZED 134 MG CAPSULE PO SCH (21:38)
[2016-10-13] MEDS: ATORVASTATIN CALCIUM 40 MG TABLET. PO SCH (21:39)
[2016-10-13 22:55] VITALS: BP 143/66
[2016-10-14 03:00] VITALS: BP 125/61
[2016-10-14] MEDS: oxyCODONE/APAP 10/325 1 TAB TABLET PO SCH ×5 (04:01→15:38)
[2016-10-14] MEDS ORDERED: GENTAMICIN RANDOM LEVEL. MC ONE (05:00)
[2016-10-14] MEDS ORDERED: VANCOMYCIN RANDOM LEVEL. MC ONE (05:00)
[2016-10-14] MEDS: HEPARIN PF for SUB-Q USE 5,000 UNIT/0.5 ML VIAL. SQ SCH ×2 (05:17→13:07)
[2016-10-14] MEDS: HYDROmorphone 2 MG/ML VIAL IVP PRN ×3 (05:33→11:27)
[2016-10-14 07:00] VITALS: BP 115/60
[2016-10-14 07:08] LABS: CALCIUM 8.5 mg/dL (8.5-10.1); CREATININE 6.4 mg/dL (0.6-1.0); GFR 6.9; POTASSIUM 4.4 mmol/L (3.5-5.1)
[2016-10-14 07:10] LABS: BASO # 0.1 x10^3/uL (0.0-0.2); BASO % 1 % (0-3); EOS % 5 % (0-3); HEMATOCRIT 30.1 % (36.0-47.0); LYMPH # 1.9 x10^3/uL (1.0-4.8); LYMPH % 19 % (24-48); MEAN CORPUSCULAR HEMOGLOBIN 31 pg (25-35); MEAN CORPUSCULAR HGB CONC 33 g/dL (31-37); MEAN CORPUSCULAR VOLUME 94 fL (79-100); MONO % 10 % (0-9); NEUT % 65 % (31-73); PLATELET COUNT 293 x10^3/uL (140-400); RED BLOOD COUNT 3.21 x10^6/uL (3.50-5.40); WHITE BLOOD COUNT 9.6 x10^3/uL (4.0-11.0)
[2016-10-14] MEDS: PANTOPRAZOLE 40 MG TABLET.DR. PO SCH (07:30)
[2016-10-14] MEDS: INSULIN ASPART 300 UNITS/3 ML INSULN.PEN SQ SCH ×3 (07:30→16:30)
[2016-10-14] MEDS ORDERED: DIALYSIS PATIENT. MC PRN ×2 (07:45)
[2016-10-14] MEDS: CARVEDILOL 12.5 MG TABLET. PO SCH ×2 (07:52→16:56)
[2016-10-14] MEDS: FUROSEMIDE 80 MG TABLET. PO SCH ×2 (07:53→13:07)
[2016-10-14] MEDS: SEVELAMER CARBONATE 800 MG TABLET. PO SCH ×3 (07:53→16:56)
[2016-10-14] MEDS: CLOPIDOGREL BISULFATE 75 MG TABLET PO SCH (08:00)
[2016-10-14] MEDS: ASPIRIN 325 MG TABLET PO SCH (08:57)
[2016-10-14] MEDS ORDERED: diphenhydrAMINE 50 MG/ML VIAL IVP ONE (09:15)
--- NOTE | 2016-10-14 09:31 | PDOC ---
PROGRESS NOTES Chief Complaint Chief Complaint R toe cellulitis ASSESSMENT AND PLAN: 1. R toe wound infection with h/o osteomyelitis post amputation 2 and 3rd toes , + right great toe osteomyelitis. in Abx as per ID service. Vasc surg following 2. ESRD on HD TTHS 3. Anemia: multifactorial, incl ESRD, inflammation 4. DM2: on insulin, SSI 5. PAD: hx L BKA 6. CAD: hx CABG 7. Left ear swelling and nape rash recently on cefazolin 8. Hypoalbuminemia: ESRD, inflammation. supplements 9. Prophylaxis: heparin 10. Dispo: home today w/ IV abx, services History of Present Illness History of Present Illness doing better. feels ready for home Vitals Vitals Vital Signs Date Time Temp Pulse Resp B/P (MAP) Pulse Ox O2 Delivery O2 Flow Rate FiO2 10/14/16 07:00 98.1 73 20 115/60 (78) 96 Room Air 98.1 10/13/16 23:57 2.0 Physical Exam General: Alert, Oriented X3 Heart: Regular rate, Normal S1, Normal S2 Lungs: Clear Abdomen: Normal bowel sounds, Soft, No tenderness Extremities: No edema, Other Skin: Other (erythema around the right 1st toe, no purulent drainage) Labs LABS Laboratory Tests Test 10/13/16 10:46 10/13/16 16:34 10/13/16 20:30 10/14/16 05:00 Glucose (Fingerstick) 85 mg/dL (70-99) 113 mg/dL (70-99) 110 mg/dL (70-99) White Blood Count 9.6 x10^3/uL (4.0-11.0) Red Blood Count 3.21 x10^6/uL (3.50-5.40) Hemoglobin 10.0 g/dL (12.0-15.5) Hematocrit 30.1 % (36.0-47.0) Mean Corpuscular Volume 94 fL (79-100) Mean Corpuscular Hemoglobin 31 pg (25-35) Mean Corpuscular Hemoglobin Concent 33 g/dL (31-37) Red Cell Distribution Width 14.0 % (11.5-14.5) Platelet Count 293 x10^3/uL (140-400) Neutrophils (%) (Auto) 65 % (31-73) Lymphocytes (%) (Auto) 19 % (24-48) Monocytes (%) (Auto) 10 % (0-9) Eosinophils (%) (Auto) 5 % (0-3) Basophils (%) (Auto) 1 % (0-3) Neutrophils # (Auto) 6.3 x10^3uL (1.8-7.7) Lymphocytes # (Auto) 1.9 x10^3/uL (1.0-4.8) Monocytes # (Auto) 0.9 x10^3/uL (0.0-1.1) Eosinophils # (Auto) 0.5 x10^3/uL (0.0-0.7) Basophils # (Auto) 0.1 x10^3/uL (0.0-0.2) Sodium Level 135 mmol/L (136-145) Potassium Level 4.4 mmol/L (3.5-5.1) Chloride Level 94 mmol/L (98-107) Carbon Dioxide Level 32 mmol/L (21-32) Anion Gap 9 (6-14) Blood Urea Nitrogen 53 mg/dL (7-20) Creatinine 6.4 mg/dL (0.6-1.0) Estimated GFR (Cockcroft-Gault) 6.9 Glucose Level 108 mg/dL (70-99) Calcium Level 8.5 mg/dL (8.5-10.1) Random Gentamicin Level 3.8 mcg/mL Test 10/14/16 07:15 Glucose (Fingerstick) 91 mg/dL (70-99) VIDA ANNE MD Oct 14, 2016 09:31
--- NOTE | 2016-10-14 09:35 | PDOC ---
Dialysis Progress Note Dialysis Note Dialysis Note Seen on Hemodialysis, tolerating treatment Okay so far Vitals on Hemodialysis: 107/47 67 afeb General Appearance: Awake: Alert Oriented x 3 Neck: No JVD or JVP Chest: CTA Ramiro Heart: S1 S2 Abdomen - Soft NTND Extremities - + Edema ESRD : Dialysis as below F 180 NR 3:15 Hrs 3 K 2.5 Ca 140 Na 35 HC03 Qb 350 + Qd 500+ Heparin 0 Units Uf 2 Kgs or to dry weight as tolerated May give 25-50 gms of 25% Albumin if needed to maintain Hemodynamic stability Treatment plan reviewed and discussed with maintenance painter Vitals Vital Signs Vital Signs Date Time Temp Pulse Resp B/P (MAP) Pulse Ox O2 Delivery O2 Flow Rate FiO2 10/14/16 07:00 98.1 73 20 115/60 (78) 96 Room Air 98.1 10/13/16 23:57 2.0 Labs Last Labs Laboratory Tests Test 10/12/16 11:45 10/12/16 16:38 10/12/16 19:38 10/13/16 03:39 Glucose (Fingerstick) 90 mg/dL (70-99) 128 mg/dL (70-99) 99 mg/dL (70-99) 74 mg/dL (70-99) Test 10/13/16 07:22 10/13/16 10:46 10/13/16 16:34 10/13/16 20:30 Glucose (Fingerstick) 77 mg/dL (70-99) 85 mg/dL (70-99) 113 mg/dL (70-99) 110 mg/dL (70-99) Test 10/14/16 05:00 10/14/16 07:15 White Blood Count 9.6 x10^3/uL (4.0-11.0) Red Blood Count 3.21 x10^6/uL (3.50-5.40) Hemoglobin 10.0 g/dL (12.0-15.5) Hematocrit 30.1 % (36.0-47.0) Mean Corpuscular Volume 94 fL (79-100) Mean Corpuscular Hemoglobin 31 pg (25-35) Mean Corpuscular Hemoglobin Concent 33 g/dL (31-37) Red Cell Distribution Width 14.0 % (11.5-14.5) Platelet Count 293 x10^3/uL (140-400) Neutrophils (%) (Auto) 65 % (31-73) Lymphocytes (%) (Auto) 19 % (24-48) Monocytes (%) (Auto) 10 % (0-9) Eosinophils (%) (Auto) 5 % (0-3) Basophils (%) (Auto) 1 % (0-3) Neutrophils # (Auto) 6.3 x10^3uL (1.8-7.7) Lymphocytes # (Auto) 1.9 x10^3/uL (1.0-4.8) Monocytes # (Auto) 0.9 x10^3/uL (0.0-1.1) Eosinophils # (Auto) 0.5 x10^3/uL (0.0-0.7) Basophils # (Auto) 0.1 x10^3/uL (0.0-0.2) Sodium Level 135 mmol/L (136-145) Potassium Level 4.4 mmol/L (3.5-5.1) Chloride Level 94 mmol/L (98-107) Carbon Dioxide Level 32 mmol/L (21-32) Anion Gap 9 (6-14) Blood Urea Nitrogen 53 mg/dL (7-20) Creatinine 6.4 mg/dL (0.6-1.0) Estimated GFR (Cockcroft-Gault) 6.9 Glucose Level 108 mg/dL (70-99) Calcium Level 8.5 mg/dL (8.5-10.1) Random Gentamicin Level 3.8 mcg/mL Glucose (Fingerstick) 91 mg/dL (70-99) Laboratory Tests Test 10/13/16 10:46 10/13/16 16:34 10/13/16 20:30 10/14/16 05:00 Glucose (Fingerstick) 85 mg/dL (70-99) 113 mg/dL (70-99) 110 mg/dL (70-99) White Blood Count 9.6 x10^3/uL (4.0-11.0) Red Blood Count 3.21 x10^6/uL (3.50-5.40) Hemoglobin 10.0 g/dL (12.0-15.5) Hematocrit 30.1 % (36.0-47.0) Mean Corpuscular Volume 94 fL (79-100) Mean Corpuscular Hemoglobin 31 pg (25-35) Mean Corpuscular Hemoglobin Concent 33 g/dL (31-37) Red Cell Distribution Width 14.0 % (11.5-14.5) Platelet Count 293 x10^3/uL (140-400) Neutrophils (%) (Auto) 65 % (31-73) Lymphocytes (%) (Auto) 19 % (24-48) Monocytes (%) (Auto) 10 % (0-9) Eosinophils (%) (Auto) 5 % (0-3) Basophils (%) (Auto) 1 % (0-3) Neutrophils # (Auto) 6.3 x10^3uL (1.8-7.7) Lymphocytes # (Auto) 1.9 x10^3/uL (1.0-4.8) Monocytes # (Auto) 0.9 x10^3/uL (0.0-1.1) Eosinophils # (Auto) 0.5 x10^3/uL (0.0-0.7) Basophils # (Auto) 0.1 x10^3/uL (0.0-0.2) Sodium Level 135 mmol/L (136-145) Potassium Level 4.4 mmol/L (3.5-5.1) Chloride Level 94 mmol/L (98-107) Carbon Dioxide Level 32 mmol/L (21-32) Anion Gap 9 (6-14) Blood Urea Nitrogen 53 mg/dL (7-20) Creatinine 6.4 mg/dL (0.6-1.0) Estimated GFR (Cockcroft-Gault) 6.9 Glucose Level 108 mg/dL (70-99) Calcium Level 8.5 mg/dL (8.5-10.1) Random Gentamicin Level 3.8 mcg/mL Test 10/14/16 07:15 Glucose (Fingerstick) 91 mg/dL (70-99) BEAR LÓPEZ MD Oct 14, 2016 09:35
[2016-10-14 11:00] VITALS: BP 135/65
[2016-10-14] MEDS: FOLIC/VIT B COMP W-C (RENAL) TABLET. PO SCH (11:25)
[2016-10-14] MEDS: diphenhydrAMINE HCL 25 MG CAPSULE PO SCH ×2 (11:25→15:37)
[2016-10-14] MEDS: valACYclovir 500 MG TABLET. PO SCH (11:25)
[2016-10-14] MEDS: MORPHINE ER 15 MG TABLET.ER PO SCH (11:26)
--- NOTE | 2016-10-14 11:37 | PDOC ---
Infectious Disease Note Subjective Subjective Feeling better today Denies dizziness or ringing in ears ROS ROS GEN: Denies fevers, chills, sweats HEENT: Denies blurred vision, sore throat CV: Denies chest pain RESP: Denies shortness of air, cough GI: Denies n/v/d NEURO: Denies confusion, dizziness MSK: Denies weakness, joint pain/swelling Vital Sign Vital Signs Vital Signs Date Time Temp Pulse Resp B/P (MAP) Pulse Ox O2 Delivery O2 Flow Rate FiO2 10/14/16 11:00 98.0 72 20 135/65 (88) 95 Room Air 98.0 10/13/16 23:57 2.0 Physical Exam PHYSICAL EXAM GENERAL: NAD, Alert HEENT: PERRL, OC/OP NECK: Supple, no JVD, no LN LUNGS: Clear HEART: S1S2, no gallop, no murmur ABD: Soft, NT, no organomegaly, no rebound EXT: No edema, no cyanosis,, foot incision looks good PARADICHLOROBENZENE TENDER: Alert, oriented x 3, no focal neurologic deficit SKIN: No rash IV: ok Labs Lab Laboratory Tests Test 10/13/16 16:34 10/13/16 20:30 10/14/16 05:00 10/14/16 07:15 Glucose (Fingerstick) 113 mg/dL (70-99) 110 mg/dL (70-99) 91 mg/dL (70-99) White Blood Count 9.6 x10^3/uL (4.0-11.0) Red Blood Count 3.21 x10^6/uL (3.50-5.40) Hemoglobin 10.0 g/dL (12.0-15.5) Hematocrit 30.1 % (36.0-47.0) Mean Corpuscular Volume 94 fL (79-100) Mean Corpuscular Hemoglobin 31 pg (25-35) Mean Corpuscular Hemoglobin Concent 33 g/dL (31-37) Red Cell Distribution Width 14.0 % (11.5-14.5) Platelet Count 293 x10^3/uL (140-400) Neutrophils (%) (Auto) 65 % (31-73) Lymphocytes (%) (Auto) 19 % (24-48) Monocytes (%) (Auto) 10 % (0-9) Eosinophils (%) (Auto) 5 % (0-3) Basophils (%) (Auto) 1 % (0-3) Neutrophils # (Auto) 6.3 x10^3uL (1.8-7.7) Lymphocytes # (Auto) 1.9 x10^3/uL (1.0-4.8) Monocytes # (Auto) 0.9 x10^3/uL (0.0-1.1) Eosinophils # (Auto) 0.5 x10^3/uL (0.0-0.7) Basophils # (Auto) 0.1 x10^3/uL (0.0-0.2) Sodium Level 135 mmol/L (136-145) Potassium Level 4.4 mmol/L (3.5-5.1) Chloride Level 94 mmol/L (98-107) Carbon Dioxide Level 32 mmol/L (21-32) Anion Gap 9 (6-14) Blood Urea Nitrogen 53 mg/dL (7-20) Creatinine 6.4 mg/dL (0.6-1.0) Estimated GFR (Cockcroft-Gault) 6.9 Glucose Level 108 mg/dL (70-99) Calcium Level 8.5 mg/dL (8.5-10.1) Random Gentamicin Level 3.8 mcg/mL Objective Assessment Fever - better Likely Herpes Zoster on neck Toe wound ? worsening osteo s/p partial amp R great toe, I and D, 10/10. closed PAD s/p SFA-pop intervention, 10/10 CKD - on HD Recent MSSA Abx allergies- MEROPENEM AND PIPERACILLIN/TAZOBACTAM CAUSING "BLEEDING RASH" DESCRIBED THE SKIN PEELING AND BLEEDING, ALSO SULFA Plan Plan of Care pt is not feeling comfortable with oral, since it has failed last time, and worried about losing more of her foot, will d/c her on iv antibiotics for 10 - 14 days F/u labs and cultures Supportive care DANDY LÓPEZ MD Oct 14, 2016 11:37
[2016-10-14] MEDS ORDERED: HYDR-2758 PO (11:38)
[2016-10-14] MEDS ORDERED: ACET325T9 PO (11:38)
[2016-10-14] MEDS ORDERED: FLUC100T PO (11:38)
[2016-10-14] MEDS ORDERED: CLOP75TA PO (11:38)
[2016-10-14] MEDS ORDERED: SENN-22 PO (11:38)
[2016-10-14] MEDS ORDERED: CEFA1PIG IV (11:46)
[2016-10-14] MEDS ORDERED: HEPARIN PF 500 UNIT/5 ML DISP.SYRIN. IV ONE ×2 (13:10→14:00)
[2016-10-14] MEDS ORDERED: LIDOCAINE 1% / SOD BICARB 8.4% 20 ML VIAL. IJ ONE ×2 (13:10→14:00)
[2016-10-14] MEDS: GENTAMICIN PER PHARMACY. MC PRN (13:11)
[2016-10-14] MEDS ORDERED: MIDAZOLAM HCL/PF 2 MG/2 ML VIAL. ONE (13:35)
[2016-10-14 13:56] VITALS: BP 125/67
[2016-10-14] MEDS ORDERED: MIDAZOLAM HCL/PF 2 MG/2 ML VIAL. IV ONE (14:00)
[2016-10-14] MEDS ORDERED: fentaNYL PF VIAL 100 MCG/2 ML VIAL IV ONE (14:00)
--- NOTE | 2016-10-14 14:14 | PDOC ---
Exam Catalyst Operator Gasoline Catalyst Operator Gasoline Noy Inside Trucker Inside Trucker Dre Fenton Pre-Procedure Diagnosis Pre-Procedure Diagnosis 51 YO female with right foot osteomyelitis. Needs OP IV Abx. Her indwelling left IJ tunneled Power Line is partially dislodged. Post-Procedure Diagnosis Post-Procedure Diagnosis Same Procedure Performed Procedure Performed Fluoro guided left IJ tunneled Power Line replacement, thru same subQ tunnel and same left IJ access. Type of Anesthesia Type of Anesthesia Local + Mod sedation Estimated Blood Loss EBL: Trace Specimens Specimans Partially dislodged 5F 2L 30cm left IJ tunneled Power Line removed and discarded. Drain/Tubes Drains/Tubes New left IJ 5F 2L 30cm tunneled Power Line inserted. Condition of Patient Condition of Patient Stable. No apparent complication. Disposition Disposition From IR return to 418 for recovery. OK to use new Power Line for blood draws and infusions. Full report to follow. BRYANNA DELATORRE MD Oct 14, 2016 14:14
[2016-10-14 15:00] VITALS: BP 131/63
[2016-10-14] MEDS: FLUCONAZOLE 100 MG TABLET. PO SCH (15:36)
[2016-10-14] MEDS ORDERED: NORMAL SALINE IV SCH (16:00)
[2016-10-14] MEDS ORDERED: GENTAMICIN SULFATE IV SCH (16:00)
--- NOTE | 2016-10-15 07:05 | RAD ---
Fluoroscopy guided complete replacement of successfully inserted tunneled power line through same subcutaneous tunnel and same venous access Indication: 51-year-old female with right foot osteomyelitis. She needs long-term outpatient IV antibiotics. Her indwelling left IJ tunneled power line is partially dislodged and needs to be replaced. Anesthesia: 26 minutes moderate sedation was provided utilizing a total of 2 mg Versed and 100 mcg fentanyl, IV. The patient was appropriately monitored by a qualified independent observer throughout the time of moderate sedation. Fluoroscopy time: 1.7 minutes Kerma-Area Product: 4 Gycm2 Antibiotic: No prophylactic antibiotic was considered indicated for this power line replacement procedure. Consent: The procedure was explained in its entirety to the patient and/or the patient's designated manufacturer's service representative by a member of the treatment team. This included a discussion of risks and benefits and commonly accepted alternatives to the procedure, as well as expected consequences of no treatment at all. Discussion of risks included, but was not limited to, those that are most frequent and those that are rare, but possibly severe or life-threatening, as well as the possibility of unforeseen complications. Sterility: All elements of maximal sterile barrier technique, hand hygiene, skin preparation, and, if ultrasound was used, sterile ultrasound technique were followed. Procedure: Informed consent was obtained from the patient. She was placed supine on the angiography table. Left neck and upper chest were prepped and draped in the usual sterile fashion, utilizing all elements of maximal sterile barrier technique, as described above. Moderate sedation was provided with IV Versed and fentanyl. No prophylactic antibiotic was utilized. Using aseptic technique and fluoroscopic guidance, a 0.018 inch Terumo advantage guidewire was inserted through the patient's indwelling, partially dislodged left IJ 5 [place] dual-lumen tunneled 30 cm power line and was successfully advanced into inferior vena cava. The left IJ tunneled power line was then removed over the advantage wire. A 6 [place] dilator was advanced over the advantage wire through the subcutaneous tunnel and the left IJ venotomy tract. The 6 [place] dilator was then exchanged for a 7 [place] dilator, which was advanced into the subcutaneous tunnel. The 7 [place] dilator was then exchanged for an 8 [place] dilator which was also advanced through the skin exit site into the subcutaneous tunnel. A new 5 [place] dual-lumen 30 cm power line was then advanced over the advantage wire through the pre-existing subcutaneous tunnel and pre-existing left IJ venotomy tract. Tip of the new power line was positioned at the level of mid right atrium utilizing fluoroscopic guidance. Satisfactory position of the new power line was confirmed with a fluoroscopic spot image. The new power line was then demonstrated to flush and aspirate normally and was secured at the left chest exit site utilizing suture and sterile dressing. Patient tolerated the procedure well without apparent complication. Impression: Successful, uneventful fluoroscopy guided complete replacement of left IJ tunneled power line, through the pre-existing subcutaneous tunnel and pre-existing left IJ venotomy tract, as described. The new left IJ 5 [place] dual-lumen 30 cm tunneled power line lies in satisfactory position and is okay to use.
--- NOTE | 2016-10-15 22:29 | DS ---
DATE OF DISCHARGE: 10/14/2016 CHIEF COMPLAINT: Osteomyelitis of the right toe. HOSPITAL COURSE: The patient is a 51-year-old woman who presented to the hospital with infection of her right toe. Of note, she actually had osteomyelitis previously prompting amputation of second and third toes. Now with infection in the great toe, she was started on antibiotics with Infectious Disease following. Vascular Surgery was also involved. No intervention was undertaken as far as surgery is concerned. She was continued on her home medications for diabetes and heart disease. With end-stage renal disease, dialysis was continued on her regular days. By 10/14/2016, she was deemed ready for discharge to home with services on IV antibiotics. PHYSICAL EXAMINATION: Please refer to note from same day. DISCHARGE DIAGNOSIS: Osteomyelitis, right great toe. DISCHARGE DISPOSITION: To home with services. DISCHARGE CONDITION: Improved. DISCHARGE MEDICATIONS: Please refer to MAR. DISCHARGE INSTRUCTIONS: The patient will receive home health and IV antibiotics. She will follow up with Dr. Alfonso in 2 weeks and she will see her PCP thereafter. VIDA ANNE MD DR: JUAN C/nts JOB#: [id number] / [id number] MAGDA Chakraborty MD
== END 2016-10-14 19:00 | disposition home health service (06) | DRG 270 ==
LOC: 4 NORTH 19:29
PROVIDERS: ADMIT Internal Medicine; ATTEND Internal Medicine
PROC: 047M3DZ Dilation of Right Popliteal Artery with Intraluminal Device, Percutaneous Approach (ICD-10-PCS; 2016-10-10)
PROC: 0Y6P0Z3 Detachment at Right 1st Toe, Low, Open Approach (ICD-10-PCS; 2016-10-10)
PROC: 047K3ZZ Dilation of Right Femoral Artery, Percutaneous Approach (ICD-10-PCS; 2016-10-10)
PROC: B41F1ZZ Fluoroscopy of Right Lower Extremity Arteries using Low Osmolar Contrast (ICD-10-PCS; 2016-10-10)
PROC: B4101ZZ Fluoroscopy of Abdominal Aorta using Low Osmolar Contrast (ICD-10-PCS; 2016-10-10)
PROC: [UNRECOGNIZED PROCEDURE] (principal; 2016-10-10 11:00)
PROC: 02PYX3Z Removal of Infusion Device from Great Vessel, External Approach (ICD-10-PCS; 2016-10-14)
PROC: 02H633Z Insertion of Infusion Device into Right Atrium, Percutaneous Approach (ICD-10-PCS; 2016-10-14)
PROC: B5141ZA Fluoroscopy of Left Jugular Veins using Low Osmolar Contrast, Guidance (ICD-10-PCS; 2016-10-14)
PROC: 5A1D60Z (ICD-10-PCS; 2016-10-14)
PROC: 0JH63XZ Insertion of Tunneled Vascular Access Device into Chest Subcutaneous Tissue and Fascia, Percutaneous Approach (ICD-10-PCS; 2016-10-14)
DX: E11.52 Type 2 diabetes mellitus with diabetic peripheral angiopathy with gangrene (principal); N18.6 End stage renal disease; M86.8X7 Other osteomyelitis, ankle and foot; I13.2 Hypertensive heart and chronic kidney disease with heart failure and with stage 5 chronic kidney disease, or end stage renal disease; T82.524A Displacement of infusion catheter, initial encounter; E11.69 Type 2 diabetes mellitus with other specified complication; D63.8 Anemia in other chronic diseases classified elsewhere; E11.22 Type 2 diabetes mellitus with diabetic chronic kidney disease; E78.5 Hyperlipidemia, unspecified; E88.09 Other disorders of plasma-protein metabolism, not elsewhere classified; H93.8X9 Other specified disorders of ear, unspecified ear; I25.10 Atherosclerotic heart disease of native coronary artery without angina pectoris; I50.9 Heart failure, unspecified; J44.9 Chronic obstructive pulmonary disease, unspecified; K21.9 Gastro-esophageal reflux disease without esophagitis; M79.7 Fibromyalgia; S91.109A Unspecified open wound of unspecified toe(s) without damage to nail, initial encounter; X58.XXXA Exposure to other specified factors, initial encounter; S91.301A Unspecified open wound, right foot, initial encounter; Y83.8 Other surgical procedures as the cause of abnormal reaction of the patient, or of later complication, without mention of misadventure at the time of the procedure; E21.3 Hyperparathyroidism, unspecified; K59.00 Constipation, unspecified; Z79.4 Long term (current) use of insulin; Z82.49 Family history of ischemic heart disease and other diseases of the circulatory system; Z83.3 Family history of diabetes mellitus; Z87.01 Personal history of pneumonia (recurrent); Z88.5 Allergy status to narcotic agent; Z89.512 Acquired absence of left leg below knee; Z95.1 Presence of aortocoronary bypass graft; Z99.2 Dependence on renal dialysis; I25.2 Old myocardial infarction; Z90.710 Acquired absence of both cervix and uterus; Z88.1 Allergy status to other antibiotic agents; Z88.2 Allergy status to sulfonamides; Z88.8 Allergy status to other drugs, medicaments and biological substances; Z91.018 Allergy to other foods; Y93.89 Activity, other specified; Y92.89 Other specified places as the place of occurrence of the external cause; Y99.8 Other external cause status
CPT/HCPCS: 36415; 36581; 37186; 37226; 71010; 73660; 75625; 75710; 75774; 76937; 77001; 80048; 80053; 80170; 80202; 81001; 82962; 83605; 85027; 85610; 85651; 87040; 87071; 87075; 87086; 87324; 87641; 88305; 88311; 93923; A6539; C1713; C1725; C1751; C1758; C1760; C1769; C1892; C1894; G0269; J0690; J1170; J1200; J1580; J1644; J1815; J1956; J2001; J2250; J2270; J2405; J2704; J2997; J3010; J3370; J3490; J7040; Q0163; Q9967

== ENCOUNTER → 2016-10-24 | Outpatient (CLI) | payer MEDICARE ==
[2016-10-14 15:00] VITALS: BP 131/63
[~2016-10-24] MED LIST changes: +ACET325T9 PO; +CEFA1PIG IV; +CLOP75TA PO; +FLUC100T PO; +HYDR-2758 PO; +ONDA4TAB7 PO; +SENN-22 PO
== END | disposition home or self-care (01) ==
LOC: PMGWOUND 08:32
PROVIDERS: ATTEND Preventive Medicine Undersea and Hyperbaric Medicine
DX: E10.621 Type 1 diabetes mellitus with foot ulcer (principal); I87.2 Venous insufficiency (chronic) (peripheral); L97.522 Non-pressure chronic ulcer of other part of left foot with fat layer exposed; E78.5 Hyperlipidemia, unspecified; I25.2 Old myocardial infarction; Z95.1 Presence of aortocoronary bypass graft; E10.22 Type 1 diabetes mellitus with diabetic chronic kidney disease; I13.2 Hypertensive heart and chronic kidney disease with heart failure and with stage 5 chronic kidney disease, or end stage renal disease; I50.9 Heart failure, unspecified; N18.6 End stage renal disease; F17.210 Nicotine dependence, cigarettes, uncomplicated; I25.10 Atherosclerotic heart disease of native coronary artery without angina pectoris; J44.9 Chronic obstructive pulmonary disease, unspecified; K21.9 Gastro-esophageal reflux disease without esophagitis; E10.69 Type 1 diabetes mellitus with other specified complication; M86.68 Other chronic osteomyelitis, other site; E10.51 Type 1 diabetes mellitus with diabetic peripheral angiopathy without gangrene; M19.90 Unspecified osteoarthritis, unspecified site; Z99.2 Dependence on renal dialysis; Z90.710 Acquired absence of both cervix and uterus; Z89.512 Acquired absence of left leg below knee; Z87.891 Personal history of nicotine dependence; Z72.89 Other problems related to lifestyle
CPT/HCPCS: 99214

== ENCOUNTER 2016-12-05 08:44 | Outpatient (CLI) | payer MEDICARE ==
[2016-12-05 09:31] VITALS: BP 159/83
[2016-12-05 09:42] LABS: BASO # 0.1 x10^3/uL (0.0-0.2); BASO % 1 % (0-3); EOS % 5 % (0-3); HEMATOCRIT 37.1 % (36.0-47.0); HEMOGLOBIN 12.8 g/dL (12.0-15.5); LYMPH # 1.5 x10^3/uL (1.0-4.8); LYMPH % 16 % (24-48); MEAN CORPUSCULAR HEMOGLOBIN 31 pg (25-35); MEAN CORPUSCULAR HGB CONC 35 g/dL (31-37); MEAN CORPUSCULAR VOLUME 91 fL (79-100); MONO % 7 % (0-9); NEUT % 71 % (31-73); PLATELET COUNT 316 x10^3/uL (140-400); RED BLOOD COUNT 4.07 x10^6/uL (3.50-5.40); RED CELL DISTRIBUTION WIDTH 14.2 % (11.5-14.5); WHITE BLOOD COUNT 9.8 x10^3/uL (4.0-11.0)
[2016-12-05 09:54] LABS: INR 1.1 (0.8-1.1); PROTHROMBIN TIME PATIENT 13.7 SEC (11.7-14.0)
[2016-12-05] MEDS ORDERED: LIDOCAINE 2%/EPI 1:100,000 20 ML VIAL. ONE (10:44)
[2016-12-05] MEDS ORDERED: fentaNYL PF VIAL 100 MCG/2 ML VIAL ONE (11:01)
[2016-12-05] MEDS ORDERED: MIDAZOLAM HCL/PF 2 MG/2 ML VIAL. ONE (11:01)
[2016-12-05] MEDS ORDERED: LIDOCAINE 2%/EPI 1:100,000 20 ML VIAL. IJ ONE (11:15)
[2016-12-05] MEDS ORDERED: fentaNYL PF VIAL 100 MCG/2 ML VIAL IV ONE (11:15)
[2016-12-05] MEDS ORDERED: MIDAZOLAM HCL/PF 2 MG/2 ML VIAL. IV ONE (11:15)
[2016-12-05 11:35] VITALS: BP 186/85
--- NOTE | 2016-12-05 13:50 | RAD ---
Fluoroscopically guided removal of left internal jugular power line 12/05/2016 Indication: Patient no longer requires chronic central venous access Comparison study: None Discussion: The risks and benefits were discussed the patient. Informed consent was obtained. The patient was brought to the interventional suite and placed in the supine position. Timeout procedure was performed. The left upper chest including the pre-existing line was prepped and draped using sterile barrier technique. 1% lidocaine with epinephrine was administered for local anesthesia. The Powerline was removed with gentle traction. Manual pressure was held to achieve hemostasis. No immediate competitions were identified. Probable removal was confirmed with fluoroscopy. Fluoroscopy time 0.1 minutes Dose area product 1 Gycm2 The procedures performed under conscious sedation including continuous cardiopulmonary monitoring via a dedicated sedation nurse.. Sedation time: 15 minutes Impression: Successful removal of left sided power line
== END 2016-12-05 12:34 | disposition home or self-care (01) ==
LOC: INTRAD 08:44
PROVIDERS: ATTEND Internal Medicine Nephrology
DX: I13.2 Hypertensive heart and chronic kidney disease with heart failure and with stage 5 chronic kidney disease, or end stage renal disease (principal); E11.22 Type 2 diabetes mellitus with diabetic chronic kidney disease; N18.6 End stage renal disease; I50.9 Heart failure, unspecified; Z99.2 Dependence on renal dialysis; E78.00 Pure hypercholesterolemia, unspecified; Z86.69 Personal history of other diseases of the nervous system and sense organs; I25.10 Atherosclerotic heart disease of native coronary artery without angina pectoris; E11.51 Type 2 diabetes mellitus with diabetic peripheral angiopathy without gangrene; J44.9 Chronic obstructive pulmonary disease, unspecified; J45.909 Unspecified asthma, uncomplicated; E66.9 Obesity, unspecified; Z68.43 Body mass index [BMI] 50.0-59.9, adult; F41.9 Anxiety disorder, unspecified; F32.9 Major depressive disorder, single episode, unspecified; D64.9 Anemia, unspecified; Z86.718 Personal history of other venous thrombosis and embolism; Z86.14 Personal history of Methicillin resistant Staphylococcus aureus infection; Z87.01 Personal history of pneumonia (recurrent); Z90.710 Acquired absence of both cervix and uterus; Z72.89 Other problems related to lifestyle; Z88.2 Allergy status to sulfonamides; Z91.018 Allergy to other foods
CPT/HCPCS: 36415; 36589; 77001; 85027; 85610; J2250; J3010; J3490; 99152

== ENCOUNTER → 2016-12-26 | Outpatient (CLI) | payer MEDICARE ==
[2016-12-05 11:35] VITALS: BP 186/85
== END | disposition home or self-care (01) ==
LOC: PMGWOUND 09:24
PROVIDERS: ATTEND Preventive Medicine Undersea and Hyperbaric Medicine
DX: E11.621 Type 2 diabetes mellitus with foot ulcer (principal); L97.511 Non-pressure chronic ulcer of other part of right foot limited to breakdown of skin; E78.5 Hyperlipidemia, unspecified; I11.0 Hypertensive heart disease with heart failure; I50.9 Heart failure, unspecified; J44.9 Chronic obstructive pulmonary disease, unspecified; Z90.710 Acquired absence of both cervix and uterus; Z95.1 Presence of aortocoronary bypass graft; F17.210 Nicotine dependence, cigarettes, uncomplicated; I25.2 Old myocardial infarction; F41.9 Anxiety disorder, unspecified; I25.10 Atherosclerotic heart disease of native coronary artery without angina pectoris; F32.9 Major depressive disorder, single episode, unspecified; Z86.14 Personal history of Methicillin resistant Staphylococcus aureus infection; E11.51 Type 2 diabetes mellitus with diabetic peripheral angiopathy without gangrene
CPT/HCPCS: 99212

== ENCOUNTER → 2017-01-02 | Outpatient (CLI) | payer MEDICARE ==
[2016-12-05 11:35] VITALS: BP 186/85
== END ==
LOC: PMGWOUND 09:26
PROVIDERS: ATTEND Preventive Medicine Undersea and Hyperbaric Medicine
DX: E11.621 Type 2 diabetes mellitus with foot ulcer (principal); L97.511 Non-pressure chronic ulcer of other part of right foot limited to breakdown of skin; I11.0 Hypertensive heart disease with heart failure; I50.9 Heart failure, unspecified; E78.5 Hyperlipidemia, unspecified; J44.9 Chronic obstructive pulmonary disease, unspecified; I25.2 Old myocardial infarction; F17.210 Nicotine dependence, cigarettes, uncomplicated; Z90.710 Acquired absence of both cervix and uterus; Z95.1 Presence of aortocoronary bypass graft
CPT/HCPCS: 99212

== ENCOUNTER → 2017-02-13 | Outpatient (CLI) | payer MEDICARE ==
[2017-02-08 15:19] VITALS: BP 115/56
[~2017-02-13] MED LIST changes: +NYST15PO9 TP; +PROVENTIL HFA6.7 GM IH
== END | disposition home or self-care (01) ==
LOC: PMGWOUND 11:07
PROVIDERS: ATTEND Emergency Medicine Undersea and Hyperbaric Medicine
DX: E11.621 Type 2 diabetes mellitus with foot ulcer (principal); L97.411 Non-pressure chronic ulcer of right heel and midfoot limited to breakdown of skin; I25.10 Atherosclerotic heart disease of native coronary artery without angina pectoris; J44.0 Chronic obstructive pulmonary disease with (acute) lower respiratory infection; K21.9 Gastro-esophageal reflux disease without esophagitis; E11.22 Type 2 diabetes mellitus with diabetic chronic kidney disease; I13.2 Hypertensive heart and chronic kidney disease with heart failure and with stage 5 chronic kidney disease, or end stage renal disease; N18.6 End stage renal disease; I50.9 Heart failure, unspecified; I25.2 Old myocardial infarction; E11.43 Type 2 diabetes mellitus with diabetic autonomic (poly)neuropathy; E11.51 Type 2 diabetes mellitus with diabetic peripheral angiopathy without gangrene; F41.9 Anxiety disorder, unspecified; F32.9 Major depressive disorder, single episode, unspecified; E78.5 Hyperlipidemia, unspecified; F17.210 Nicotine dependence, cigarettes, uncomplicated; Z95.1 Presence of aortocoronary bypass graft; Z89.512 Acquired absence of left leg below knee; Z89.511 Acquired absence of right leg below knee; Z90.710 Acquired absence of both cervix and uterus; Z99.2 Dependence on renal dialysis
CPT/HCPCS: 97597

== ENCOUNTER → 2017-02-20 | Outpatient (CLI) | payer MEDICARE ==
[2017-02-08 15:19] VITALS: BP 115/56
== END | disposition home or self-care (01) ==
LOC: PMGWOUND 09:09
PROVIDERS: ATTEND Preventive Medicine Undersea and Hyperbaric Medicine
DX: E11.621 Type 2 diabetes mellitus with foot ulcer (principal); L97.411 Non-pressure chronic ulcer of right heel and midfoot limited to breakdown of skin; S81.801D Unspecified open wound, right lower leg, subsequent encounter; L84 Corns and callosities; F41.9 Anxiety disorder, unspecified; I25.10 Atherosclerotic heart disease of native coronary artery without angina pectoris; J44.0 Chronic obstructive pulmonary disease with (acute) lower respiratory infection; K21.9 Gastro-esophageal reflux disease without esophagitis; E11.22 Type 2 diabetes mellitus with diabetic chronic kidney disease; I13.2 Hypertensive heart and chronic kidney disease with heart failure and with stage 5 chronic kidney disease, or end stage renal disease; N18.6 End stage renal disease; I50.9 Heart failure, unspecified; F32.9 Major depressive disorder, single episode, unspecified; I25.2 Old myocardial infarction; Z95.1 Presence of aortocoronary bypass graft; E11.43 Type 2 diabetes mellitus with diabetic autonomic (poly)neuropathy; E11.51 Type 2 diabetes mellitus with diabetic peripheral angiopathy without gangrene; G89.29 Other chronic pain; E11.69 Type 2 diabetes mellitus with other specified complication; M86.9 Osteomyelitis, unspecified; F17.210 Nicotine dependence, cigarettes, uncomplicated; Z90.710 Acquired absence of both cervix and uterus; Z89.612 Acquired absence of left leg above knee; Z89.511 Acquired absence of right leg below knee; Z79.4 Long term (current) use of insulin; Z99.2 Dependence on renal dialysis; X58.XXXD Exposure to other specified factors, subsequent encounter
CPT/HCPCS: 97597

== ENCOUNTER → 2017-03-13 | Outpatient (CLI) | payer MEDICARE ==
[2017-02-08 15:19] VITALS: BP 115/56
== END | disposition home or self-care (01) ==
LOC: PMGWOUND 09:27
PROVIDERS: ATTEND Preventive Medicine Undersea and Hyperbaric Medicine
DX: E11.621 Type 2 diabetes mellitus with foot ulcer (principal); L97.411 Non-pressure chronic ulcer of right heel and midfoot limited to breakdown of skin; S81.801D Unspecified open wound, right lower leg, subsequent encounter; L84 Corns and callosities; I25.10 Atherosclerotic heart disease of native coronary artery without angina pectoris; J44.0 Chronic obstructive pulmonary disease with (acute) lower respiratory infection; K21.9 Gastro-esophageal reflux disease without esophagitis; E78.5 Hyperlipidemia, unspecified; F32.9 Major depressive disorder, single episode, unspecified; I25.2 Old myocardial infarction; G89.29 Other chronic pain; E11.22 Type 2 diabetes mellitus with diabetic chronic kidney disease; I13.2 Hypertensive heart and chronic kidney disease with heart failure and with stage 5 chronic kidney disease, or end stage renal disease; N18.6 End stage renal disease; I50.9 Heart failure, unspecified; E11.69 Type 2 diabetes mellitus with other specified complication; M86.9 Osteomyelitis, unspecified; E11.51 Type 2 diabetes mellitus with diabetic peripheral angiopathy without gangrene; E11.43 Type 2 diabetes mellitus with diabetic autonomic (poly)neuropathy; F41.9 Anxiety disorder, unspecified; F17.210 Nicotine dependence, cigarettes, uncomplicated; Z95.1 Presence of aortocoronary bypass graft; Z89.512 Acquired absence of left leg below knee; Z90.710 Acquired absence of both cervix and uterus; Z89.511 Acquired absence of right leg below knee; Z99.2 Dependence on renal dialysis; Z79.4 Long term (current) use of insulin; X58.XXXD Exposure to other specified factors, subsequent encounter
CPT/HCPCS: 97597

== ENCOUNTER → 2017-03-27 | Outpatient (CLI) | payer MEDICARE ==
[2017-02-08 15:19] VITALS: BP 115/56
== END | disposition home or self-care (01) ==
LOC: PMGWOUND 09:49
PROVIDERS: ATTEND Preventive Medicine Undersea and Hyperbaric Medicine
DX: E11.621 Type 2 diabetes mellitus with foot ulcer (principal); L97.411 Non-pressure chronic ulcer of right heel and midfoot limited to breakdown of skin; F41.9 Anxiety disorder, unspecified; J44.0 Chronic obstructive pulmonary disease with (acute) lower respiratory infection; K21.9 Gastro-esophageal reflux disease without esophagitis; E11.22 Type 2 diabetes mellitus with diabetic chronic kidney disease; I13.2 Hypertensive heart and chronic kidney disease with heart failure and with stage 5 chronic kidney disease, or end stage renal disease; I50.9 Heart failure, unspecified; N18.6 End stage renal disease; E11.43 Type 2 diabetes mellitus with diabetic autonomic (poly)neuropathy; E78.5 Hyperlipidemia, unspecified; L84 Corns and callosities; I25.10 Atherosclerotic heart disease of native coronary artery without angina pectoris; M79.7 Fibromyalgia; D63.1 Anemia in chronic kidney disease; E11.69 Type 2 diabetes mellitus with other specified complication; M86.9 Osteomyelitis, unspecified; E11.52 Type 2 diabetes mellitus with diabetic peripheral angiopathy with gangrene; I25.2 Old myocardial infarction; G89.29 Other chronic pain; F32.9 Major depressive disorder, single episode, unspecified; F17.210 Nicotine dependence, cigarettes, uncomplicated; Z90.710 Acquired absence of both cervix and uterus; Z89.429 Acquired absence of other toe(s), unspecified side; Z88.2 Allergy status to sulfonamides; Z91.018 Allergy to other foods; Z91.09 Other allergy status, other than to drugs and biological substances; Z99.2 Dependence on renal dialysis; Z79.4 Long term (current) use of insulin; Z89.512 Acquired absence of left leg below knee; Z95.1 Presence of aortocoronary bypass graft
CPT/HCPCS: 97597

== ENCOUNTER → 2017-04-03 | Outpatient (CLI) | payer MEDICARE ==
[2017-02-08 15:19] VITALS: BP 115/56
== END | disposition home or self-care (01) ==
LOC: PMGWOUND 10:02
PROVIDERS: ATTEND Preventive Medicine Undersea and Hyperbaric Medicine
DX: E11.621 Type 2 diabetes mellitus with foot ulcer (principal); L97.411 Non-pressure chronic ulcer of right heel and midfoot limited to breakdown of skin; F41.9 Anxiety disorder, unspecified; I25.10 Atherosclerotic heart disease of native coronary artery without angina pectoris; J44.0 Chronic obstructive pulmonary disease with (acute) lower respiratory infection; K21.9 Gastro-esophageal reflux disease without esophagitis; E11.22 Type 2 diabetes mellitus with diabetic chronic kidney disease; I13.2 Hypertensive heart and chronic kidney disease with heart failure and with stage 5 chronic kidney disease, or end stage renal disease; N18.6 End stage renal disease; I50.9 Heart failure, unspecified; E78.5 Hyperlipidemia, unspecified; F32.9 Major depressive disorder, single episode, unspecified; I25.2 Old myocardial infarction; G89.29 Other chronic pain; E11.43 Type 2 diabetes mellitus with diabetic autonomic (poly)neuropathy; E11.52 Type 2 diabetes mellitus with diabetic peripheral angiopathy with gangrene; E11.42 Type 2 diabetes mellitus with diabetic polyneuropathy; E11.69 Type 2 diabetes mellitus with other specified complication; M86.9 Osteomyelitis, unspecified; Z95.1 Presence of aortocoronary bypass graft; F17.210 Nicotine dependence, cigarettes, uncomplicated; Z89.511 Acquired absence of right leg below knee; Z90.710 Acquired absence of both cervix and uterus; Z99.2 Dependence on renal dialysis; Z79.4 Long term (current) use of insulin; Z89.612 Acquired absence of left leg above knee
CPT/HCPCS: 97597

== ENCOUNTER → 2017-04-10 | Outpatient (CLI) | payer MEDICARE ==
[2017-02-08 15:19] VITALS: BP 115/56
== END | disposition home or self-care (01) ==
LOC: PMGWOUND 10:17
PROVIDERS: ATTEND Preventive Medicine Undersea and Hyperbaric Medicine
DX: E11.621 Type 2 diabetes mellitus with foot ulcer (principal); L97.411 Non-pressure chronic ulcer of right heel and midfoot limited to breakdown of skin; E11.43 Type 2 diabetes mellitus with diabetic autonomic (poly)neuropathy; E11.52 Type 2 diabetes mellitus with diabetic peripheral angiopathy with gangrene; E11.22 Type 2 diabetes mellitus with diabetic chronic kidney disease; E11.69 Type 2 diabetes mellitus with other specified complication; M86.8X8 Other osteomyelitis, other site; I13.2 Hypertensive heart and chronic kidney disease with heart failure and with stage 5 chronic kidney disease, or end stage renal disease; I50.9 Heart failure, unspecified; N18.6 End stage renal disease; J44.9 Chronic obstructive pulmonary disease, unspecified; E78.5 Hyperlipidemia, unspecified; I25.2 Old myocardial infarction; F41.9 Anxiety disorder, unspecified; I25.10 Atherosclerotic heart disease of native coronary artery without angina pectoris; K21.9 Gastro-esophageal reflux disease without esophagitis; Z79.4 Long term (current) use of insulin; F32.9 Major depressive disorder, single episode, unspecified; F17.210 Nicotine dependence, cigarettes, uncomplicated; G89.29 Other chronic pain; Z90.710 Acquired absence of both cervix and uterus; Z89.511 Acquired absence of right leg below knee; Z89.612 Acquired absence of left leg above knee; Z99.2 Dependence on renal dialysis; Z95.1 Presence of aortocoronary bypass graft; Z89.512 Acquired absence of left leg below knee; Z89.429 Acquired absence of other toe(s), unspecified side
CPT/HCPCS: 97597

== ENCOUNTER → 2017-04-17 | Outpatient (CLI) | payer MEDICARE ==
[2017-02-08 15:19] VITALS: BP 115/56
== END | disposition home or self-care (01) ==
LOC: PMGWOUND 10:03
PROVIDERS: ATTEND Preventive Medicine Undersea and Hyperbaric Medicine
DX: E11.621 Type 2 diabetes mellitus with foot ulcer (principal); L97.411 Non-pressure chronic ulcer of right heel and midfoot limited to breakdown of skin; E11.43 Type 2 diabetes mellitus with diabetic autonomic (poly)neuropathy; E11.52 Type 2 diabetes mellitus with diabetic peripheral angiopathy with gangrene; E11.22 Type 2 diabetes mellitus with diabetic chronic kidney disease; E11.69 Type 2 diabetes mellitus with other specified complication; M86.8X8 Other osteomyelitis, other site; I13.2 Hypertensive heart and chronic kidney disease with heart failure and with stage 5 chronic kidney disease, or end stage renal disease; I50.9 Heart failure, unspecified; N18.6 End stage renal disease; J44.9 Chronic obstructive pulmonary disease, unspecified; E78.5 Hyperlipidemia, unspecified; I25.2 Old myocardial infarction; F41.9 Anxiety disorder, unspecified; I25.10 Atherosclerotic heart disease of native coronary artery without angina pectoris; K21.9 Gastro-esophageal reflux disease without esophagitis; F32.9 Major depressive disorder, single episode, unspecified; F17.210 Nicotine dependence, cigarettes, uncomplicated; G89.29 Other chronic pain; Z79.4 Long term (current) use of insulin; Z90.710 Acquired absence of both cervix and uterus; Z89.511 Acquired absence of right leg below knee; Z89.612 Acquired absence of left leg above knee; Z99.2 Dependence on renal dialysis; Z95.1 Presence of aortocoronary bypass graft; Z89.512 Acquired absence of left leg below knee; Z89.429 Acquired absence of other toe(s), unspecified side
CPT/HCPCS: 97597

== ENCOUNTER → 2017-05-01 | Outpatient (CLI) | payer MEDICARE | END | disposition home or self-care (01) | LOC: PMGWOUND 10:24 | DX: E11.621 Type 2 diabetes mellitus with foot ulcer (principal); L97.411 Non-pressure chronic ulcer of right heel and midfoot limited to breakdown of skin; E11.43 Type 2 diabetes mellitus with diabetic autonomic (poly)neuropathy; E11.52 Type 2 diabetes mellitus with diabetic peripheral angiopathy with gangrene; E11.22 Type 2 diabetes mellitus with diabetic chronic kidney disease; E11.69 Type 2 diabetes mellitus with other specified complication; M86.8X7 Other osteomyelitis, ankle and foot; I13.2 Hypertensive heart and chronic kidney disease with heart failure and with stage 5 chronic kidney disease, or end stage renal disease; I50.9 Heart failure, unspecified; N18.6 End stage renal disease; J44.9 Chronic obstructive pulmonary disease, unspecified; E78.5 Hyperlipidemia, unspecified; I25.2 Old myocardial infarction; F41.9 Anxiety disorder, unspecified; I25.10 Atherosclerotic heart disease of native coronary artery without angina pectoris; K21.9 Gastro-esophageal reflux disease without esophagitis; F32.9 Major depressive disorder, single episode, unspecified; F17.210 Nicotine dependence, cigarettes, uncomplicated; G89.29 Other chronic pain; Z79.4 Long term (current) use of insulin; Z90.710 Acquired absence of both cervix and uterus; Z89.511 Acquired absence of right leg below knee; Z89.612 Acquired absence of left leg above knee; Z99.2 Dependence on renal dialysis; Z95.1 Presence of aortocoronary bypass graft; Z89.512 Acquired absence of left leg below knee; Z89.429 Acquired absence of other toe(s), unspecified side | CPT/HCPCS: 97597 ==

== ENCOUNTER → 2017-05-15 | Outpatient (CLI) | payer MEDICARE | END | disposition home or self-care (01) | LOC: PMGWOUND 09:59 | DX: E11.621 Type 2 diabetes mellitus with foot ulcer (principal); L97.411 Non-pressure chronic ulcer of right heel and midfoot limited to breakdown of skin; E11.43 Type 2 diabetes mellitus with diabetic autonomic (poly)neuropathy; E11.52 Type 2 diabetes mellitus with diabetic peripheral angiopathy with gangrene; E11.22 Type 2 diabetes mellitus with diabetic chronic kidney disease; M86.8X7 Other osteomyelitis, ankle and foot; I13.2 Hypertensive heart and chronic kidney disease with heart failure and with stage 5 chronic kidney disease, or end stage renal disease; I50.9 Heart failure, unspecified; N18.6 End stage renal disease; J44.9 Chronic obstructive pulmonary disease, unspecified; E78.5 Hyperlipidemia, unspecified; I25.2 Old myocardial infarction; F41.9 Anxiety disorder, unspecified; I25.10 Atherosclerotic heart disease of native coronary artery without angina pectoris; K21.9 Gastro-esophageal reflux disease without esophagitis; F32.9 Major depressive disorder, single episode, unspecified; F17.210 Nicotine dependence, cigarettes, uncomplicated; G89.29 Other chronic pain; Z79.4 Long term (current) use of insulin; Z90.710 Acquired absence of both cervix and uterus; Z89.511 Acquired absence of right leg below knee; Z89.612 Acquired absence of left leg above knee; Z99.2 Dependence on renal dialysis; Z95.1 Presence of aortocoronary bypass graft; Z89.512 Acquired absence of left leg below knee; Z89.429 Acquired absence of other toe(s), unspecified side | CPT/HCPCS: 11042 ==

== ENCOUNTER → 2017-05-22 | Outpatient (CLI) | payer MEDICARE | END | disposition home or self-care (01) | LOC: PMGWOUND 10:04 | DX: E11.621 Type 2 diabetes mellitus with foot ulcer (principal); L97.411 Non-pressure chronic ulcer of right heel and midfoot limited to breakdown of skin; E11.43 Type 2 diabetes mellitus with diabetic autonomic (poly)neuropathy; E11.52 Type 2 diabetes mellitus with diabetic peripheral angiopathy with gangrene; E11.69 Type 2 diabetes mellitus with other specified complication; M86.8X7 Other osteomyelitis, ankle and foot; E11.22 Type 2 diabetes mellitus with diabetic chronic kidney disease; I13.2 Hypertensive heart and chronic kidney disease with heart failure and with stage 5 chronic kidney disease, or end stage renal disease; I50.9 Heart failure, unspecified; N18.6 End stage renal disease; J44.9 Chronic obstructive pulmonary disease, unspecified; E78.5 Hyperlipidemia, unspecified; I25.2 Old myocardial infarction; F41.9 Anxiety disorder, unspecified; I25.10 Atherosclerotic heart disease of native coronary artery without angina pectoris; K21.9 Gastro-esophageal reflux disease without esophagitis; F32.9 Major depressive disorder, single episode, unspecified; F17.210 Nicotine dependence, cigarettes, uncomplicated; G89.29 Other chronic pain; Z79.4 Long term (current) use of insulin; Z90.710 Acquired absence of both cervix and uterus; Z89.511 Acquired absence of right leg below knee; Z89.612 Acquired absence of left leg above knee; Z99.2 Dependence on renal dialysis; Z95.1 Presence of aortocoronary bypass graft; Z89.512 Acquired absence of left leg below knee; Z89.429 Acquired absence of other toe(s), unspecified side | CPT/HCPCS: 99213 ==

== ENCOUNTER 2017-06-05 11:15 | Inpatient (IN) | payer MEDICARE ==
[2017-06-05 11:43] LABS: AGAP ISTAT 15 mmol/L (6-14); BUN ISTAT 55 mg/dL (8-26); CHLORIDE ISTAT 98 mmol/L (98-110); CREATININE ISTAT 4.5 mg/dL (0.5-1.4); GLUCOSE ISTAT 273 mg/dL (70-99); HEMATOCRIT ISTAT 38 % (36-40); HEMOGLOBIN ISTAT 12.9 g/dL (12-15); ION CA ISTAT 1.05 mmol/L (1.13-1.32); POTASSIUM ISTAT 4.3 mmol/L (3.5-5.0); SODIUM ISTAT 136 mmol/L (135-145); TOT CO2 ISTAT 29 mmol/L (23-32)
[2017-06-05] MEDS: dilTIAZem IV PUSH 25 MG/5 ML VIAL IVP (11:43)
[2017-06-05] MEDS: dilTIAZem VIAL 125 MG in IV DEXTROSE 5% 100 ML IV (11:49)
[2017-06-05 11:50] LABS: ADD MAN DIFF? NO
[2017-06-05 12:02] LABS: BASO # 0.1 x10^3/uL (0.0-0.2); BASO % 1 % (0-3); EOS # 0.3 x10^3/uL (0.0-0.7); EOS % 2 % (0-3); HEMATOCRIT 37.2 % (36.0-47.0); HEMOGLOBIN 12.6 g/dL (12.0-15.5); LYMPH # 1.3 x10^3/uL (1.0-4.8); LYMPH % 9 % (24-48); MEAN CORPUSCULAR HEMOGLOBIN 32 pg (25-35); MEAN CORPUSCULAR HGB CONC 34 g/dL (31-37); MEAN CORPUSCULAR VOLUME 93 fL (79-100); MONO # 0.8 x10^3/uL (0.0-1.1); MONO % 6 % (0-9); NEUT # 11.2 x10^3uL (1.8-7.7); NEUT % 82 % (31-73); PLATELET COUNT 361 x10^3/uL (140-400); RED BLOOD COUNT 4.01 x10^6/uL (3.50-5.40); RED CELL DISTRIBUTION WIDTH 13.8 % (11.5-14.5); WHITE BLOOD COUNT 13.7 x10^3/uL (4.0-11.0)
[2017-06-05] MEDS: HYDROmorphone 2 MG/ML VIAL IV/SQ ×3 (12:05→22:52)
[2017-06-05 12:06] LABS: ANION GAP 12 (6-14); BLOOD UREA NITROGEN 59 mg/dL (7-20); CALCIUM 9.4 mg/dL (8.5-10.1); CARBON DIOXIDE 30 mmol/L (21-32); CHLORIDE 96 mmol/L (98-107); CREATININE 4.4 mg/dL (0.6-1.0); GFR 10.6; GLUCOSE 288 mg/dL (70-99); POTASSIUM 4.2 mmol/L (3.5-5.1); SODIUM 138 mmol/L (136-145)
[2017-06-05 12:10] LABS: LACTIC ACID 1.5 mmol/L (0.4-2.0)
[2017-06-05 12:11] LABS: TROPONINI 0.119 ng/mL (0.000-0.055)
[2017-06-05 12:17] LABS: ALBUMIN 3.4 g/dL (3.4-5.0); ALK PHOS 202 U/L (46-116); ALT (SGPT) 33 U/L (14-59); AST (SGOT) 24 U/L (15-37); DIRECT BILIRUBIN 0.1 mg/dL (0.0-0.2); LIPASE 681 U/L (73-393); TOTAL BILIRUBIN 0.3 mg/dL (0.2-1.0); TOTAL PROTEIN 7.8 g/dL (6.4-8.2)
[2017-06-05 12:19] LABS: NT-PRO BNP > 35000 pg/mL (0-124)
[2017-06-05] MEDS: ASPIRIN CHEWABLE 81 MG TABLET. PO (12:29)
[2017-06-05 14:51] LABS: THYROID STIM HORMONE (TSH) 1.553 uIU/mL (0.358-3.74)
[2017-06-05] MEDS: MORPHINE SULFATE 2 MG/ML DISP.SYRIN. IV ×2 (16:29→20:07)
[2017-06-05 20:04] LABS: TROPONINI 0.111 ng/mL (0.000-0.055)
[2017-06-05] MEDS: FENOFIBRATE,MICRONIZED 134 MG CAPSULE PO (20:06)
[2017-06-05] MEDS: TICAGRELOR 90 MG TABLET. PO (20:06)
[2017-06-05] MEDS: NIACIN ER 500 MG TABLET.ER PO (20:06)
[2017-06-05] MEDS: ATORVASTATIN CALCIUM 40 MG TABLET. PO (20:06)
[2017-06-05] MEDS: METOCLOPRAMIDE 5 MG TABLET. PO (20:06)
[2017-06-05] MEDS: INSULIN DETEMIR 300 UNITS/3 ML INSULN.PEN. SQ (20:18)
[2017-06-05 20:52] LABS: POC GLUCOSE 215 mg/dL (70-99)
[2017-06-06 01:33] LABS: TROPONINI 0.124 ng/mL (0.000-0.055)
[2017-06-06] MEDS: HYDROmorphone 2 MG/ML VIAL IV/SQ ×2 (01:40→04:21)
[2017-06-06] MEDS: ONDANSETRON PF 4 MG/2 ML VIAL. IV ×2 (02:10→11:24)
[2017-06-06] MEDS: dilTIAZem VIAL 125 MG in IV DEXTROSE 5% 100 ML IV (02:10)
[2017-06-06 05:03] LABS: ADD MAN DIFF? NO
[2017-06-06 05:21] LABS: BASO # 0.1 x10^3/uL (0.0-0.2); BASO % 1 % (0-3); EOS # 0.4 x10^3/uL (0.0-0.7); EOS % 4 % (0-3); HEMATOCRIT 33.3 % (36.0-47.0); HEMOGLOBIN 11.3 g/dL (12.0-15.5); LYMPH # 2.6 x10^3/uL (1.0-4.8); LYMPH % 27 % (24-48); MEAN CORPUSCULAR HEMOGLOBIN 32 pg (25-35); MEAN CORPUSCULAR HGB CONC 34 g/dL (31-37); MEAN CORPUSCULAR VOLUME 94 fL (79-100); MONO # 0.7 x10^3/uL (0.0-1.1); MONO % 7 % (0-9); NEUT # 5.9 x10^3uL (1.8-7.7); NEUT % 61 % (31-73); PLATELET COUNT 318 x10^3/uL (140-400); RED BLOOD COUNT 3.56 x10^6/uL (3.50-5.40); RED CELL DISTRIBUTION WIDTH 13.7 % (11.5-14.5); WHITE BLOOD COUNT 9.7 x10^3/uL (4.0-11.0)
[2017-06-06 06:12] LABS: ANION GAP 10 (6-14); BLOOD UREA NITROGEN 68 mg/dL (7-20); CALCIUM 9.3 mg/dL (8.5-10.1); CARBON DIOXIDE 31 mmol/L (21-32); CHLORIDE 97 mmol/L (98-107); CREATININE 5.1 mg/dL (0.6-1.0); GFR 8.9; GLUCOSE 212 mg/dL (70-99); POTASSIUM 4.3 mmol/L (3.5-5.1); SODIUM 138 mmol/L (136-145)
[2017-06-06 06:17] LABS: TROPONINI 0.107 ng/mL (0.000-0.055)
[2017-06-06 06:26] LABS: CHOLESTEROL 172 mg/dL (0-200); CHOLESTEROL/HDL RATIO 5.2; HDLC 33 mg/dL (40-60); LDLC 116 mg/dL (0-100); NON-HDL CHOLESTEROL 139 mg/dL (0-129); TRIGLYCERIDES 115 mg/dL (0-150); VLDLC 23 mg/dL (0-40)
[2017-06-06 07:31] LABS: POC GLUCOSE 123 mg/dL (70-99)
[2017-06-06] MEDS: ASPIRIN 325 MG TABLET PO (08:43)
[2017-06-06] MEDS: METOCLOPRAMIDE 5 MG TABLET. PO ×2 (08:43→21:25)
[2017-06-06] MEDS: TICAGRELOR 90 MG TABLET. PO ×2 (08:43→21:19)
[2017-06-06] MEDS: FUROSEMIDE 80 MG TABLET. PO ×2 (09:00→15:05)
[2017-06-06] MEDS ORDERED: ALBUTEROL SULFATE 2.5 MG/3 ML NEBU. NEB (09:00)
[2017-06-06] MEDS: MORPHINE ER 15 MG TABLET.ER PO ×2 (09:25→21:20)
[2017-06-06] MEDS: FOLIC/VIT B COMP W-C (RENAL) TABLET. PO (09:25)
[2017-06-06] MEDS: SEVELAMER CARBONATE 800 MG TABLET. PO ×3 (09:25→17:00)
[2017-06-06] MEDS: oxyCODONE/APAP 10/325 1 TAB TABLET PO ×4 (09:26→19:50)
[2017-06-06] MEDS ORDERED: DEXTROSE 50% 25 GM / 50ML DISP.SYRIN. IV (09:30)
[2017-06-06] MEDS ORDERED: APIXABAN 5 MG TABLET. PO (11:00)
[2017-06-06] MEDS: AMIODARONE HCL 200 MG TABLET. PO ×2 (11:06→21:19)
[2017-06-06] MEDS: MORPHINE SULFATE 4 MG/ML DISP.SYRIN. IV ×5 (11:06→23:15)
[2017-06-06] MEDS: NITROGLYCERIN SUBLINGUAL 0.4 MG BOTTLE OF 25. SL (11:08)
[2017-06-06 11:23] LABS: POC GLUCOSE 218 mg/dL (70-99)
[2017-06-06] MEDS ORDERED: INSULIN ASPART SQ (11:30)
[2017-06-06] MEDS ORDERED: oxyCODONE/APAP 10/325 1 TAB TABLET PO (12:00)
[2017-06-06] MEDS: INSULIN ASPART 300 UNITS/3 ML INSULN.PEN SQ ×2 (12:26→16:30)
[2017-06-06] MEDS ORDERED: IV NORMAL SALINE 1000ML BAG 1,000 ML IV ×2 (15:30)
[2017-06-06] MEDS ORDERED: ALBUMIN HUMAN 25% 200 ML IV (15:30)
[2017-06-06] MEDS ORDERED: ACETAMINOPHEN 500 MG TABLET PO (15:30)
[2017-06-06] MEDS ORDERED: LABETALOL 20 MG/4 ML DISP.SYRIN. IVP (15:30)
[2017-06-06] MEDS ORDERED: diphenhydrAMINE 50 MG/ML VIAL IV ×2 (15:30)
[2017-06-06] MEDS ORDERED: cloNIDine HCL 0.1 MG TABLET PO (15:30)
[2017-06-06] MEDS ORDERED: DIALYSIS PATIENT. MC (15:30)
[2017-06-06 20:41] LABS: POC GLUCOSE 224 mg/dL (70-99)
[2017-06-06] MEDS ORDERED: NIACIN ER 500 MG TABLET.ER PO (21:00)
[2017-06-06] MEDS: FENOFIBRATE,MICRONIZED 134 MG CAPSULE PO (21:19)
[2017-06-06] MEDS: ATORVASTATIN CALCIUM 40 MG TABLET. PO (21:19)
[2017-06-06] MEDS: NIACIN ER 500 MG TABLET.ER PO (21:19)
[2017-06-06] MEDS: INSULIN DETEMIR 300 UNITS/3 ML INSULN.PEN. SQ (21:22)
[2017-06-06] MEDS: ONDANSETRON ODT 4 MG TAB.RAPDIS. PO (21:25)
[2017-06-07] MEDS: oxyCODONE/APAP 10/325 1 TAB TABLET PO ×7 (00:34→23:30)
[2017-06-07] MEDS: MORPHINE SULFATE 4 MG/ML DISP.SYRIN. IV ×4 (05:38→20:28)
[2017-06-07] MEDS: ONDANSETRON ODT 4 MG TAB.RAPDIS. PO ×3 (06:07→20:28)
[2017-06-07] MEDS: INSULIN ASPART 300 UNITS/3 ML INSULN.PEN SQ ×3 (07:30→17:31)
[2017-06-07 07:44] LABS: POC GLUCOSE 176 mg/dL (70-99)
[2017-06-07] MEDS: SEVELAMER CARBONATE 800 MG TABLET. PO ×3 (08:00→17:19)
[2017-06-07] MEDS: TICAGRELOR 90 MG TABLET. PO ×2 (09:00→20:36)
[2017-06-07] MEDS: FUROSEMIDE 80 MG TABLET. PO ×2 (09:00→17:18)
[2017-06-07] MEDS: ASPIRIN 325 MG TABLET PO (09:39)
[2017-06-07] MEDS: traMADol 50 MG TABLET PO ×2 (09:40→17:19)
[2017-06-07] MEDS: FOLIC/VIT B COMP W-C (RENAL) TABLET. PO (09:41)
[2017-06-07] MEDS: AMIODARONE HCL 200 MG TABLET. PO ×2 (09:41→20:28)
[2017-06-07] MEDS: MORPHINE ER 15 MG TABLET.ER PO ×2 (09:42→20:29)
[2017-06-07] MEDS: REGADENOSON 0.4 MG/5 ML DISP.SYRIN. IV (10:00)
[2017-06-07 12:32] LABS: POC GLUCOSE 161 mg/dL (70-99)
[2017-06-07] MEDS: METOCLOPRAMIDE 5 MG TABLET. PO ×2 (13:15→20:28)
[2017-06-07 16:45] LABS: POC GLUCOSE 352 mg/dL (70-99)
[2017-06-07] MEDS: ONDANSETRON PF 4 MG/2 ML VIAL. IV (17:20)
[2017-06-07] MEDS: NIACIN ER 500 MG TABLET.ER PO (20:28)
[2017-06-07] MEDS: ATORVASTATIN CALCIUM 40 MG TABLET. PO (20:28)
[2017-06-07] MEDS: FENOFIBRATE,MICRONIZED 134 MG CAPSULE PO (20:29)
[2017-06-07] MEDS: INSULIN DETEMIR 300 UNITS/3 ML INSULN.PEN. SQ (20:33)
[2017-06-07 21:04] LABS: POC GLUCOSE 176 mg/dL (70-99)
[2017-06-08] MEDS: traMADol 50 MG TABLET PO (01:05)
[2017-06-08] MEDS: MORPHINE SULFATE 4 MG/ML DISP.SYRIN. IV ×3 (01:06→12:32)
[2017-06-08] MEDS: ONDANSETRON ODT 4 MG TAB.RAPDIS. PO ×2 (04:07→12:30)
[2017-06-08] MEDS: oxyCODONE/APAP 10/325 1 TAB TABLET PO ×4 (04:07→16:32)
[2017-06-08] MEDS: INSULIN ASPART 300 UNITS/3 ML INSULN.PEN SQ ×2 (07:30→11:30)
[2017-06-08 07:43] LABS: POC GLUCOSE 84 mg/dL (70-99)
[2017-06-08] MEDS: ONDANSETRON PF 4 MG/2 ML VIAL. IV (08:22)
[2017-06-08] MEDS: MORPHINE ER 15 MG TABLET.ER PO (09:16)
[2017-06-08] MEDS: FUROSEMIDE 80 MG TABLET. PO ×2 (09:17→16:31)
[2017-06-08] MEDS: TICAGRELOR 90 MG TABLET. PO (09:17)
[2017-06-08] MEDS: ASPIRIN 325 MG TABLET PO (09:17)
[2017-06-08] MEDS: FOLIC/VIT B COMP W-C (RENAL) TABLET. PO (09:17)
[2017-06-08] MEDS: SEVELAMER CARBONATE 800 MG TABLET. PO ×2 (09:18→12:28)
[2017-06-08] MEDS: AMIODARONE HCL 200 MG TABLET. PO (09:18)
[2017-06-08] MEDS: DOCUSATE SODIUM 100 MG CAPSULE. PO (09:19)
[2017-06-08] MEDS: METOCLOPRAMIDE 5 MG TABLET. PO ×2 (09:22→12:28)
[2017-06-08 12:26] LABS: POC GLUCOSE 112 mg/dL (70-99)
== END 2017-06-08 16:40 | disposition home or self-care (01) | DRG 280 ==
LOC: ER 11:15 → 2 NORTH 14:00
PROC: 5A1D70Z Performance of Urinary Filtration, Intermittent, Less than 6 Hours Per Day (ICD-10-PCS; principal; 2017-06-06)
DX: I13.2 Hypertensive heart and chronic kidney disease with heart failure and with stage 5 chronic kidney disease, or end stage renal disease (principal); I21.4 Non-ST elevation (NSTEMI) myocardial infarction; I50.33 Acute on chronic diastolic (congestive) heart failure; E11.22 Type 2 diabetes mellitus with diabetic chronic kidney disease; N18.6 End stage renal disease; I48.0 Paroxysmal atrial fibrillation; E11.43 Type 2 diabetes mellitus with diabetic autonomic (poly)neuropathy; D64.9 Anemia, unspecified; E11.621 Type 2 diabetes mellitus with foot ulcer; E78.5 Hyperlipidemia, unspecified; F17.210 Nicotine dependence, cigarettes, uncomplicated; G89.29 Other chronic pain; I25.119 Atherosclerotic heart disease of native coronary artery with unspecified angina pectoris; I35.0 Nonrheumatic aortic (valve) stenosis; J44.9 Chronic obstructive pulmonary disease, unspecified; K21.9 Gastro-esophageal reflux disease without esophagitis; E21.3 Hyperparathyroidism, unspecified; L97.519 Non-pressure chronic ulcer of other part of right foot with unspecified severity; M79.7 Fibromyalgia; Z79.4 Long term (current) use of insulin; Z79.891 Long term (current) use of opiate analgesic; Z82.49 Family history of ischemic heart disease and other diseases of the circulatory system; Z83.3 Family history of diabetes mellitus; Z86.14 Personal history of Methicillin resistant Staphylococcus aureus infection; Z89.512 Acquired absence of left leg below knee; Z90.710 Acquired absence of both cervix and uterus; Z95.1 Presence of aortocoronary bypass graft; Z87.01 Personal history of pneumonia (recurrent); Z88.6 Allergy status to analgesic agent; Z88.2 Allergy status to sulfonamides; Z88.8 Allergy status to other drugs, medicaments and biological substances; Z91.018 Allergy to other foods
CPT/HCPCS: 36415; 71045; 78452; 80047; 80048; 80061; 80076; 82962; 83605; 83690; 83880; 84443; 84484; 85025; 93005; 93017; 93306; 96374; 96375; 96376; 99291; 99291-25; A9500; J1170; J1815; J2270; J2405; J2785; J3490; J8597; Q0162

== ENCOUNTER → 2017-06-05 | Outpatient (CLI) | payer MEDICARE | END | disposition home or self-care (01) | LOC: PMGWOUND 10:10 | DX: E11.621 Type 2 diabetes mellitus with foot ulcer (principal); L97.411 Non-pressure chronic ulcer of right heel and midfoot limited to breakdown of skin; E11.43 Type 2 diabetes mellitus with diabetic autonomic (poly)neuropathy; E11.52 Type 2 diabetes mellitus with diabetic peripheral angiopathy with gangrene; E11.69 Type 2 diabetes mellitus with other specified complication; M86.8X7 Other osteomyelitis, ankle and foot; E11.22 Type 2 diabetes mellitus with diabetic chronic kidney disease; I13.2 Hypertensive heart and chronic kidney disease with heart failure and with stage 5 chronic kidney disease, or end stage renal disease; I50.9 Heart failure, unspecified; N18.6 End stage renal disease; J44.9 Chronic obstructive pulmonary disease, unspecified; E78.5 Hyperlipidemia, unspecified; I25.2 Old myocardial infarction; F41.9 Anxiety disorder, unspecified; I25.10 Atherosclerotic heart disease of native coronary artery without angina pectoris; K21.9 Gastro-esophageal reflux disease without esophagitis; F32.9 Major depressive disorder, single episode, unspecified; F17.210 Nicotine dependence, cigarettes, uncomplicated; G89.29 Other chronic pain; Z79.4 Long term (current) use of insulin; Z90.710 Acquired absence of both cervix and uterus; Z89.511 Acquired absence of right leg below knee; Z89.612 Acquired absence of left leg above knee; Z99.2 Dependence on renal dialysis; Z95.1 Presence of aortocoronary bypass graft; Z89.512 Acquired absence of left leg below knee; Z89.429 Acquired absence of other toe(s), unspecified side | CPT/HCPCS: 97597 ==

== ENCOUNTER → 2017-06-12 | Outpatient (CLI) | payer MEDICARE | END | disposition home or self-care (01) | LOC: PMGWOUND 09:28 | DX: E11.621 Type 2 diabetes mellitus with foot ulcer (principal); L97.411 Non-pressure chronic ulcer of right heel and midfoot limited to breakdown of skin; L97.511 Non-pressure chronic ulcer of other part of right foot limited to breakdown of skin; E11.43 Type 2 diabetes mellitus with diabetic autonomic (poly)neuropathy; E11.52 Type 2 diabetes mellitus with diabetic peripheral angiopathy with gangrene; E11.69 Type 2 diabetes mellitus with other specified complication; M86.8X7 Other osteomyelitis, ankle and foot; E11.22 Type 2 diabetes mellitus with diabetic chronic kidney disease; I13.2 Hypertensive heart and chronic kidney disease with heart failure and with stage 5 chronic kidney disease, or end stage renal disease; I50.9 Heart failure, unspecified; N18.6 End stage renal disease; J44.9 Chronic obstructive pulmonary disease, unspecified; E78.5 Hyperlipidemia, unspecified; I25.2 Old myocardial infarction; L84 Corns and callosities; F41.9 Anxiety disorder, unspecified; I25.10 Atherosclerotic heart disease of native coronary artery without angina pectoris; K21.9 Gastro-esophageal reflux disease without esophagitis; F32.9 Major depressive disorder, single episode, unspecified; F17.210 Nicotine dependence, cigarettes, uncomplicated; G89.29 Other chronic pain; Z79.4 Long term (current) use of insulin; Z90.710 Acquired absence of both cervix and uterus; Z89.511 Acquired absence of right leg below knee; Z89.612 Acquired absence of left leg above knee; Z99.2 Dependence on renal dialysis; Z95.1 Presence of aortocoronary bypass graft; Z89.512 Acquired absence of left leg below knee; Z89.429 Acquired absence of other toe(s), unspecified side | CPT/HCPCS: 97597 ==

== ENCOUNTER → 2017-06-19 | Outpatient (CLI) | payer MEDICARE | END | disposition home or self-care (01) | LOC: PMGWOUND 09:54 | DX: E11.621 Type 2 diabetes mellitus with foot ulcer (principal); L97.411 Non-pressure chronic ulcer of right heel and midfoot limited to breakdown of skin; L97.511 Non-pressure chronic ulcer of other part of right foot limited to breakdown of skin; E11.43 Type 2 diabetes mellitus with diabetic autonomic (poly)neuropathy; E11.52 Type 2 diabetes mellitus with diabetic peripheral angiopathy with gangrene; E11.69 Type 2 diabetes mellitus with other specified complication; M86.8X7 Other osteomyelitis, ankle and foot; E11.22 Type 2 diabetes mellitus with diabetic chronic kidney disease; I13.2 Hypertensive heart and chronic kidney disease with heart failure and with stage 5 chronic kidney disease, or end stage renal disease; I50.33 Acute on chronic diastolic (congestive) heart failure; N18.6 End stage renal disease; J44.9 Chronic obstructive pulmonary disease, unspecified; E78.5 Hyperlipidemia, unspecified; I25.2 Old myocardial infarction; L84 Corns and callosities; F41.9 Anxiety disorder, unspecified; F32.9 Major depressive disorder, single episode, unspecified; I25.10 Atherosclerotic heart disease of native coronary artery without angina pectoris; K21.9 Gastro-esophageal reflux disease without esophagitis; E21.3 Hyperparathyroidism, unspecified; I48.0 Paroxysmal atrial fibrillation; F17.210 Nicotine dependence, cigarettes, uncomplicated; G89.29 Other chronic pain; Z79.4 Long term (current) use of insulin; Z90.710 Acquired absence of both cervix and uterus; Z89.612 Acquired absence of left leg above knee; Z99.2 Dependence on renal dialysis; Z95.1 Presence of aortocoronary bypass graft; Z89.511 Acquired absence of right leg below knee | CPT/HCPCS: 97597 ==

== ENCOUNTER → 2017-07-03 | Outpatient (CLI) | payer MEDICARE | END | disposition home or self-care (01) | LOC: PMGWOUND 10:12 | DX: E11.621 Type 2 diabetes mellitus with foot ulcer (principal); L97.411 Non-pressure chronic ulcer of right heel and midfoot limited to breakdown of skin; I25.10 Atherosclerotic heart disease of native coronary artery without angina pectoris; J44.9 Chronic obstructive pulmonary disease, unspecified; E11.22 Type 2 diabetes mellitus with diabetic chronic kidney disease; I13.2 Hypertensive heart and chronic kidney disease with heart failure and with stage 5 chronic kidney disease, or end stage renal disease; N18.6 End stage renal disease; I50.33 Acute on chronic diastolic (congestive) heart failure; K21.9 Gastro-esophageal reflux disease without esophagitis; E78.5 Hyperlipidemia, unspecified; E21.3 Hyperparathyroidism, unspecified; I25.2 Old myocardial infarction; I48.0 Paroxysmal atrial fibrillation; E11.43 Type 2 diabetes mellitus with diabetic autonomic (poly)neuropathy; F41.9 Anxiety disorder, unspecified; F32.9 Major depressive disorder, single episode, unspecified; G89.29 Other chronic pain; E11.52 Type 2 diabetes mellitus with diabetic peripheral angiopathy with gangrene; E11.69 Type 2 diabetes mellitus with other specified complication; M86.8X7 Other osteomyelitis, ankle and foot; Z99.2 Dependence on renal dialysis; Z95.1 Presence of aortocoronary bypass graft; Z89.612 Acquired absence of left leg above knee; Z90.710 Acquired absence of both cervix and uterus; Z89.511 Acquired absence of right leg below knee; F17.210 Nicotine dependence, cigarettes, uncomplicated; Z79.4 Long term (current) use of insulin | CPT/HCPCS: 97597 ==

== ENCOUNTER → 2017-07-10 | Outpatient (CLI) | payer MEDICARE | END | disposition home or self-care (01) | LOC: PMGWOUND 11:08 | DX: E11.621 Type 2 diabetes mellitus with foot ulcer (principal); L97.511 Non-pressure chronic ulcer of other part of right foot limited to breakdown of skin; L97.411 Non-pressure chronic ulcer of right heel and midfoot limited to breakdown of skin; I25.10 Atherosclerotic heart disease of native coronary artery without angina pectoris; J44.9 Chronic obstructive pulmonary disease, unspecified; E11.22 Type 2 diabetes mellitus with diabetic chronic kidney disease; I13.2 Hypertensive heart and chronic kidney disease with heart failure and with stage 5 chronic kidney disease, or end stage renal disease; N18.6 End stage renal disease; I50.33 Acute on chronic diastolic (congestive) heart failure; K21.9 Gastro-esophageal reflux disease without esophagitis; E78.5 Hyperlipidemia, unspecified; E21.3 Hyperparathyroidism, unspecified; I25.2 Old myocardial infarction; I48.0 Paroxysmal atrial fibrillation; E11.43 Type 2 diabetes mellitus with diabetic autonomic (poly)neuropathy; F41.9 Anxiety disorder, unspecified; F32.9 Major depressive disorder, single episode, unspecified; G89.29 Other chronic pain; E11.52 Type 2 diabetes mellitus with diabetic peripheral angiopathy with gangrene; E11.69 Type 2 diabetes mellitus with other specified complication; M86.8X7 Other osteomyelitis, ankle and foot; Z99.2 Dependence on renal dialysis; Z95.1 Presence of aortocoronary bypass graft; Z89.612 Acquired absence of left leg above knee; Z90.710 Acquired absence of both cervix and uterus; Z89.511 Acquired absence of right leg below knee; F17.210 Nicotine dependence, cigarettes, uncomplicated; Z79.4 Long term (current) use of insulin | CPT/HCPCS: 99214 ==

== ENCOUNTER → 2017-07-24 | Outpatient (CLI) | payer MEDICARE | END | disposition home or self-care (01) | LOC: PMGWOUND 10:05 | DX: E11.621 Type 2 diabetes mellitus with foot ulcer (principal); L97.511 Non-pressure chronic ulcer of other part of right foot limited to breakdown of skin; L97.411 Non-pressure chronic ulcer of right heel and midfoot limited to breakdown of skin; I25.10 Atherosclerotic heart disease of native coronary artery without angina pectoris; J44.9 Chronic obstructive pulmonary disease, unspecified; E11.22 Type 2 diabetes mellitus with diabetic chronic kidney disease; I13.2 Hypertensive heart and chronic kidney disease with heart failure and with stage 5 chronic kidney disease, or end stage renal disease; N18.6 End stage renal disease; I50.33 Acute on chronic diastolic (congestive) heart failure; K21.9 Gastro-esophageal reflux disease without esophagitis; E78.5 Hyperlipidemia, unspecified; E21.3 Hyperparathyroidism, unspecified; I25.2 Old myocardial infarction; I48.0 Paroxysmal atrial fibrillation; E11.43 Type 2 diabetes mellitus with diabetic autonomic (poly)neuropathy; F41.9 Anxiety disorder, unspecified; F32.9 Major depressive disorder, single episode, unspecified; F17.210 Nicotine dependence, cigarettes, uncomplicated; G89.29 Other chronic pain; E11.52 Type 2 diabetes mellitus with diabetic peripheral angiopathy with gangrene; E11.69 Type 2 diabetes mellitus with other specified complication; M86.8X7 Other osteomyelitis, ankle and foot; Z99.2 Dependence on renal dialysis; Z95.1 Presence of aortocoronary bypass graft; Z89.612 Acquired absence of left leg above knee; Z90.710 Acquired absence of both cervix and uterus; Z89.511 Acquired absence of right leg below knee; Z79.4 Long term (current) use of insulin | CPT/HCPCS: 97597 ==

== ENCOUNTER → 2017-08-07 | Outpatient (CLI) | payer MEDICARE | END | disposition home or self-care (01) | LOC: PMGWOUND 10:50 | DX: E11.621 Type 2 diabetes mellitus with foot ulcer (principal); L97.512 Non-pressure chronic ulcer of other part of right foot with fat layer exposed; L97.411 Non-pressure chronic ulcer of right heel and midfoot limited to breakdown of skin; I25.10 Atherosclerotic heart disease of native coronary artery without angina pectoris; J44.9 Chronic obstructive pulmonary disease, unspecified; E11.22 Type 2 diabetes mellitus with diabetic chronic kidney disease; I13.2 Hypertensive heart and chronic kidney disease with heart failure and with stage 5 chronic kidney disease, or end stage renal disease; N18.6 End stage renal disease; I50.33 Acute on chronic diastolic (congestive) heart failure; K21.9 Gastro-esophageal reflux disease without esophagitis; E78.5 Hyperlipidemia, unspecified; E21.3 Hyperparathyroidism, unspecified; I25.2 Old myocardial infarction; I48.0 Paroxysmal atrial fibrillation; E11.43 Type 2 diabetes mellitus with diabetic autonomic (poly)neuropathy; F41.9 Anxiety disorder, unspecified; F32.9 Major depressive disorder, single episode, unspecified; F17.210 Nicotine dependence, cigarettes, uncomplicated; G89.29 Other chronic pain; E11.52 Type 2 diabetes mellitus with diabetic peripheral angiopathy with gangrene; E11.69 Type 2 diabetes mellitus with other specified complication; M86.8X7 Other osteomyelitis, ankle and foot; Z99.2 Dependence on renal dialysis; Z95.1 Presence of aortocoronary bypass graft; Z89.612 Acquired absence of left leg above knee; Z90.710 Acquired absence of both cervix and uterus; Z89.511 Acquired absence of right leg below knee; Z79.4 Long term (current) use of insulin | CPT/HCPCS: 87071; 87075; 87205; 97597 ==

== ENCOUNTER → 2017-08-14 | Outpatient (CLI) | payer MEDICARE | END | disposition home or self-care (01) | LOC: PMGWOUND 10:18 | DX: E11.621 Type 2 diabetes mellitus with foot ulcer (principal); L97.512 Non-pressure chronic ulcer of other part of right foot with fat layer exposed; L97.411 Non-pressure chronic ulcer of right heel and midfoot limited to breakdown of skin; I25.10 Atherosclerotic heart disease of native coronary artery without angina pectoris; J44.9 Chronic obstructive pulmonary disease, unspecified; E11.22 Type 2 diabetes mellitus with diabetic chronic kidney disease; I13.2 Hypertensive heart and chronic kidney disease with heart failure and with stage 5 chronic kidney disease, or end stage renal disease; N18.6 End stage renal disease; I50.33 Acute on chronic diastolic (congestive) heart failure; K21.9 Gastro-esophageal reflux disease without esophagitis; E78.5 Hyperlipidemia, unspecified; E21.3 Hyperparathyroidism, unspecified; I25.2 Old myocardial infarction; I48.0 Paroxysmal atrial fibrillation; E11.43 Type 2 diabetes mellitus with diabetic autonomic (poly)neuropathy; F41.9 Anxiety disorder, unspecified; F32.9 Major depressive disorder, single episode, unspecified; F17.210 Nicotine dependence, cigarettes, uncomplicated; G89.29 Other chronic pain; E11.52 Type 2 diabetes mellitus with diabetic peripheral angiopathy with gangrene; E11.69 Type 2 diabetes mellitus with other specified complication; M86.8X7 Other osteomyelitis, ankle and foot; Z99.2 Dependence on renal dialysis; Z95.1 Presence of aortocoronary bypass graft; Z89.612 Acquired absence of left leg above knee; Z90.710 Acquired absence of both cervix and uterus; Z89.511 Acquired absence of right leg below knee; Z79.4 Long term (current) use of insulin | CPT/HCPCS: 97597 ==

== ENCOUNTER → 2017-08-21 | Outpatient (CLI) | payer MEDICARE | END | disposition home or self-care (01) | LOC: PMGWOUND 10:05 | DX: E11.621 Type 2 diabetes mellitus with foot ulcer (principal); L97.512 Non-pressure chronic ulcer of other part of right foot with fat layer exposed; L97.411 Non-pressure chronic ulcer of right heel and midfoot limited to breakdown of skin; I25.10 Atherosclerotic heart disease of native coronary artery without angina pectoris; J44.9 Chronic obstructive pulmonary disease, unspecified; E11.22 Type 2 diabetes mellitus with diabetic chronic kidney disease; I13.2 Hypertensive heart and chronic kidney disease with heart failure and with stage 5 chronic kidney disease, or end stage renal disease; N18.6 End stage renal disease; I50.33 Acute on chronic diastolic (congestive) heart failure; K21.9 Gastro-esophageal reflux disease without esophagitis; E78.5 Hyperlipidemia, unspecified; E21.3 Hyperparathyroidism, unspecified; I25.2 Old myocardial infarction; I48.0 Paroxysmal atrial fibrillation; E11.43 Type 2 diabetes mellitus with diabetic autonomic (poly)neuropathy; F41.9 Anxiety disorder, unspecified; F32.9 Major depressive disorder, single episode, unspecified; F17.210 Nicotine dependence, cigarettes, uncomplicated; G89.29 Other chronic pain; E11.52 Type 2 diabetes mellitus with diabetic peripheral angiopathy with gangrene; E11.69 Type 2 diabetes mellitus with other specified complication; M86.8X7 Other osteomyelitis, ankle and foot; Z99.2 Dependence on renal dialysis; Z95.1 Presence of aortocoronary bypass graft; Z89.612 Acquired absence of left leg above knee; Z90.710 Acquired absence of both cervix and uterus; Z89.511 Acquired absence of right leg below knee; Z79.4 Long term (current) use of insulin | CPT/HCPCS: 11042; 73630 ==

== ENCOUNTER → 2017-09-04 | Outpatient (CLI) | payer MEDICARE | END | disposition home or self-care (01) | LOC: PMGWOUND 10:07 | DX: E11.621 Type 2 diabetes mellitus with foot ulcer (principal); L97.512 Non-pressure chronic ulcer of other part of right foot with fat layer exposed; I25.10 Atherosclerotic heart disease of native coronary artery without angina pectoris; J44.9 Chronic obstructive pulmonary disease, unspecified; E11.22 Type 2 diabetes mellitus with diabetic chronic kidney disease; I13.2 Hypertensive heart and chronic kidney disease with heart failure and with stage 5 chronic kidney disease, or end stage renal disease; N18.6 End stage renal disease; I50.33 Acute on chronic diastolic (congestive) heart failure; K21.9 Gastro-esophageal reflux disease without esophagitis; E78.5 Hyperlipidemia, unspecified; E21.3 Hyperparathyroidism, unspecified; I25.2 Old myocardial infarction; I48.0 Paroxysmal atrial fibrillation; E11.43 Type 2 diabetes mellitus with diabetic autonomic (poly)neuropathy; F41.9 Anxiety disorder, unspecified; F32.9 Major depressive disorder, single episode, unspecified; F17.210 Nicotine dependence, cigarettes, uncomplicated; G89.29 Other chronic pain; E11.52 Type 2 diabetes mellitus with diabetic peripheral angiopathy with gangrene; E11.69 Type 2 diabetes mellitus with other specified complication; M86.8X7 Other osteomyelitis, ankle and foot; Z99.2 Dependence on renal dialysis; Z95.1 Presence of aortocoronary bypass graft; Z89.612 Acquired absence of left leg above knee; Z90.710 Acquired absence of both cervix and uterus; Z89.511 Acquired absence of right leg below knee; Z79.4 Long term (current) use of insulin | CPT/HCPCS: 97597 ==

== ENCOUNTER → 2017-09-18 | Outpatient (CLI) | payer MEDICARE | END | disposition home or self-care (01) | LOC: PMGWOUND 10:21 | DX: E11.621 Type 2 diabetes mellitus with foot ulcer (principal); L97.411 Non-pressure chronic ulcer of right heel and midfoot limited to breakdown of skin; L97.512 Non-pressure chronic ulcer of other part of right foot with fat layer exposed; F41.9 Anxiety disorder, unspecified; I25.10 Atherosclerotic heart disease of native coronary artery without angina pectoris; J44.9 Chronic obstructive pulmonary disease, unspecified; K21.9 Gastro-esophageal reflux disease without esophagitis; E11.22 Type 2 diabetes mellitus with diabetic chronic kidney disease; I13.2 Hypertensive heart and chronic kidney disease with heart failure and with stage 5 chronic kidney disease, or end stage renal disease; N18.6 End stage renal disease; I50.33 Acute on chronic diastolic (congestive) heart failure; E78.5 Hyperlipidemia, unspecified; E21.3 Hyperparathyroidism, unspecified; F32.9 Major depressive disorder, single episode, unspecified; E11.43 Type 2 diabetes mellitus with diabetic autonomic (poly)neuropathy; E11.52 Type 2 diabetes mellitus with diabetic peripheral angiopathy with gangrene; I96 Gangrene, not elsewhere classified; G89.29 Other chronic pain; E11.69 Type 2 diabetes mellitus with other specified complication; M86.8X7 Other osteomyelitis, ankle and foot; I48.0 Paroxysmal atrial fibrillation; I25.2 Old myocardial infarction; F17.210 Nicotine dependence, cigarettes, uncomplicated; Z90.710 Acquired absence of both cervix and uterus; Z89.511 Acquired absence of right leg below knee; Z89.612 Acquired absence of left leg above knee; Z95.1 Presence of aortocoronary bypass graft; Z79.4 Long term (current) use of insulin; Z99.2 Dependence on renal dialysis | CPT/HCPCS: 11042; 87071; 87075; 87186; 87205 ==

== ENCOUNTER → 2017-09-25 | Outpatient (CLI) | payer MEDICARE | END | disposition home or self-care (01) | LOC: PMGWOUND 10:01 | DX: E11.621 Type 2 diabetes mellitus with foot ulcer (principal); L97.512 Non-pressure chronic ulcer of other part of right foot with fat layer exposed; I25.10 Atherosclerotic heart disease of native coronary artery without angina pectoris; J44.9 Chronic obstructive pulmonary disease, unspecified; E11.22 Type 2 diabetes mellitus with diabetic chronic kidney disease; I13.2 Hypertensive heart and chronic kidney disease with heart failure and with stage 5 chronic kidney disease, or end stage renal disease; N18.6 End stage renal disease; I50.33 Acute on chronic diastolic (congestive) heart failure; K21.9 Gastro-esophageal reflux disease without esophagitis; E78.5 Hyperlipidemia, unspecified; E21.3 Hyperparathyroidism, unspecified; I25.2 Old myocardial infarction; I48.0 Paroxysmal atrial fibrillation; E11.43 Type 2 diabetes mellitus with diabetic autonomic (poly)neuropathy; F41.9 Anxiety disorder, unspecified; F32.9 Major depressive disorder, single episode, unspecified; F17.210 Nicotine dependence, cigarettes, uncomplicated; G89.29 Other chronic pain; E11.52 Type 2 diabetes mellitus with diabetic peripheral angiopathy with gangrene; E11.69 Type 2 diabetes mellitus with other specified complication; M86.8X7 Other osteomyelitis, ankle and foot; Z99.2 Dependence on renal dialysis; Z95.1 Presence of aortocoronary bypass graft; Z89.612 Acquired absence of left leg above knee; Z90.710 Acquired absence of both cervix and uterus; Z89.511 Acquired absence of right leg below knee; Z79.4 Long term (current) use of insulin | CPT/HCPCS: 15275; Q4131 ==

== ENCOUNTER → 2017-10-02 | Outpatient (CLI) | payer MEDICARE | END | disposition home or self-care (01) | LOC: PMGWOUND 10:45 | DX: E11.621 Type 2 diabetes mellitus with foot ulcer (principal); L97.411 Non-pressure chronic ulcer of right heel and midfoot limited to breakdown of skin; L97.512 Non-pressure chronic ulcer of other part of right foot with fat layer exposed; F41.9 Anxiety disorder, unspecified; I25.119 Atherosclerotic heart disease of native coronary artery with unspecified angina pectoris; J44.9 Chronic obstructive pulmonary disease, unspecified; K21.9 Gastro-esophageal reflux disease without esophagitis; E11.22 Type 2 diabetes mellitus with diabetic chronic kidney disease; I13.2 Hypertensive heart and chronic kidney disease with heart failure and with stage 5 chronic kidney disease, or end stage renal disease; N18.6 End stage renal disease; I50.33 Acute on chronic diastolic (congestive) heart failure; E78.5 Hyperlipidemia, unspecified; E21.3 Hyperparathyroidism, unspecified; F32.9 Major depressive disorder, single episode, unspecified; I25.2 Old myocardial infarction; G89.29 Other chronic pain; E11.69 Type 2 diabetes mellitus with other specified complication; M86.8X7 Other osteomyelitis, ankle and foot; I48.0 Paroxysmal atrial fibrillation; E11.43 Type 2 diabetes mellitus with diabetic autonomic (poly)neuropathy; E11.52 Type 2 diabetes mellitus with diabetic peripheral angiopathy with gangrene; I96 Gangrene, not elsewhere classified; F17.210 Nicotine dependence, cigarettes, uncomplicated; Z95.1 Presence of aortocoronary bypass graft; Z89.612 Acquired absence of left leg above knee; Z89.511 Acquired absence of right leg below knee; Z90.710 Acquired absence of both cervix and uterus; Z79.4 Long term (current) use of insulin; Z99.2 Dependence on renal dialysis | CPT/HCPCS: 15275; Q4131 ==

== ENCOUNTER → 2017-10-09 | Outpatient (CLI) | payer MEDICARE | END | disposition home or self-care (01) | LOC: PMGWOUND 10:41 | DX: E11.621 Type 2 diabetes mellitus with foot ulcer (principal); L97.512 Non-pressure chronic ulcer of other part of right foot with fat layer exposed; L97.411 Non-pressure chronic ulcer of right heel and midfoot limited to breakdown of skin; I25.10 Atherosclerotic heart disease of native coronary artery without angina pectoris; J44.9 Chronic obstructive pulmonary disease, unspecified; E11.22 Type 2 diabetes mellitus with diabetic chronic kidney disease; I13.2 Hypertensive heart and chronic kidney disease with heart failure and with stage 5 chronic kidney disease, or end stage renal disease; N18.6 End stage renal disease; I50.33 Acute on chronic diastolic (congestive) heart failure; E11.52 Type 2 diabetes mellitus with diabetic peripheral angiopathy with gangrene; I96 Gangrene, not elsewhere classified; E11.69 Type 2 diabetes mellitus with other specified complication; M86.8X7 Other osteomyelitis, ankle and foot; K21.9 Gastro-esophageal reflux disease without esophagitis; E78.5 Hyperlipidemia, unspecified; E21.3 Hyperparathyroidism, unspecified; I25.2 Old myocardial infarction; I48.0 Paroxysmal atrial fibrillation; E11.43 Type 2 diabetes mellitus with diabetic autonomic (poly)neuropathy; F41.9 Anxiety disorder, unspecified; F32.9 Major depressive disorder, single episode, unspecified; F17.210 Nicotine dependence, cigarettes, uncomplicated; G89.29 Other chronic pain; Z99.2 Dependence on renal dialysis; Z95.1 Presence of aortocoronary bypass graft; Z89.612 Acquired absence of left leg above knee; Z90.710 Acquired absence of both cervix and uterus; Z89.511 Acquired absence of right leg below knee; Z79.4 Long term (current) use of insulin | CPT/HCPCS: 15275; Q4131 ==

== ENCOUNTER → 2017-10-16 | Outpatient (CLI) | payer MEDICARE | END | disposition home or self-care (01) | LOC: PMGWOUND 10:20 | DX: E11.621 Type 2 diabetes mellitus with foot ulcer (principal); L97.512 Non-pressure chronic ulcer of other part of right foot with fat layer exposed; L97.411 Non-pressure chronic ulcer of right heel and midfoot limited to breakdown of skin; I25.10 Atherosclerotic heart disease of native coronary artery without angina pectoris; J44.9 Chronic obstructive pulmonary disease, unspecified; E11.22 Type 2 diabetes mellitus with diabetic chronic kidney disease; I13.2 Hypertensive heart and chronic kidney disease with heart failure and with stage 5 chronic kidney disease, or end stage renal disease; N18.6 End stage renal disease; I50.33 Acute on chronic diastolic (congestive) heart failure; E11.52 Type 2 diabetes mellitus with diabetic peripheral angiopathy with gangrene; I96 Gangrene, not elsewhere classified; E11.69 Type 2 diabetes mellitus with other specified complication; M86.8X7 Other osteomyelitis, ankle and foot; K21.9 Gastro-esophageal reflux disease without esophagitis; E78.5 Hyperlipidemia, unspecified; E21.3 Hyperparathyroidism, unspecified; I25.2 Old myocardial infarction; I48.0 Paroxysmal atrial fibrillation; E11.43 Type 2 diabetes mellitus with diabetic autonomic (poly)neuropathy; F41.9 Anxiety disorder, unspecified; F32.9 Major depressive disorder, single episode, unspecified; F17.210 Nicotine dependence, cigarettes, uncomplicated; G89.29 Other chronic pain; Z99.2 Dependence on renal dialysis; Z95.1 Presence of aortocoronary bypass graft; Z89.612 Acquired absence of left leg above knee; Z90.710 Acquired absence of both cervix and uterus; Z89.511 Acquired absence of right leg below knee; Z79.4 Long term (current) use of insulin | CPT/HCPCS: 97597 ==

== ENCOUNTER 2017-10-19 05:51 | Day surgery (SDC) | payer MEDICARE ==
[~2017-10-19 05:51] MED LIST changes: -ACET325T9 PO; -AMLO5TAB4 PO; -APIX2.5T PO; -ASPI325T8 PO; -ATROVENT HFA12.9 GM IH; -CARV12.5 PO; -CARV12.52 PO; -CARV25TA2 PO; -CEFA1PIG IV; -CIPR250T PO; -CIPR250T30 PO; -CLOP75TA PO; -DARB60DI SQ; -DOCU100C28 PO; -FENO145T PO; -FLUC100T PO; -FLUC100T4 PO; -FLUT1DIS IH; -FOLI0.8T3 PO; -FURO80TA3 PO; -HYDR-2758 PO; -INSU100C4 SQ; -INSU100I13 SQ; -INSU100V8 SQ; +IV RINGERS,LACTATED 1000ML 1,000 ML IV; +LIDOCAINE 1% PF 2 ML VIAL. ID; -LIPITOR80 MG PO; -METO10TA81 PO; -MORP15TA3 PO; +MORPHINE SULFATE 2 MG/ML DISP.SYRIN. IV; -MULT-237 PO; -NIAC500T9 PO; -NITR0.4T SL; -NYST15PO9 TP; -ONDA4TAB10 PO; -ONDA4TAB7 PO; -OXYC-328 PO; -OXYC10TA PO; +PROCHLORPERAZINE 10 MG/2 ML VIAL. IV; -PROVENTIL HFA6.7 GM IH; -SENN-22 PO; -SEVE800T9 PO; -SUCR1TAB PO; -TICA90TA PO; -TRAM50TA PO; -[UNRECOGNIZED DRUG - OTHER]; -auryxia PO
[2017-10-19] MEDS ORDERED: HEPARIN SODIUM 1,000 UNIT in IV NORMAL SALINE 100ML 100 ML IRR (06:00)
[2017-10-19] MEDS ORDERED: VANCOMYCIN 1GM IVPB FOR OMNI 250 ML IV (06:00)
[2017-10-19] MEDS: IV NORMAL SALINE 1000ML BAG 1,000 ML IV (06:42)
[2017-10-19] MEDS ORDERED: VANCOMYCIN 1GM IVPB FOR OMNI. (07:00)
[2017-10-19] MEDS ORDERED: INSULIN REGULAR 100 UNIT/ML 3ML VIAL. IV (07:00)
[2017-10-19] MEDS: INSULIN ASPART 100 UNIT/ML 10ML VIAL. SQ ×2 (07:01→08:41)
[2017-10-19] MEDS: VANCOMYCIN 1GM IVPB FOR OMNI 250 ML IV (07:10)
[2017-10-19] MEDS ORDERED: DEXAMETHASONE SOD PHOS 20 MG/5 ML VIAL. (07:18)
[2017-10-19] MEDS ORDERED: PHENYLEPHRINE in 0.9% NACL PF 1 MG/10 ML SYRINGE. IV (07:18)
[2017-10-19] MEDS ORDERED: PROPOFOL 20 ML IV (07:18)
[2017-10-19] MEDS ORDERED: ONDANSETRON PF 4 MG/2 ML VIAL. (07:18)
[2017-10-19] MEDS ORDERED: fentaNYL PF VIAL 100 MCG/2 ML VIAL (07:18)
[2017-10-19] MEDS ORDERED: ROCURONIUM 50 MG/5 ML VIAL. (07:18)
[2017-10-19] MEDS ORDERED: DESFLURANE 31 TO 60 MINUTES IH (07:19)
[2017-10-19] MEDS ORDERED: LIDOCAINE 2% PF Vial for OR 5 ML VIAL. (07:19)
[2017-10-19 07:29] LABS: POC GLUCOSE 236 mg/dL (70-99)
[2017-10-19 07:29] LABS: POC GLUCOSE 222 mg/dL (70-99)
[2017-10-19] MEDS ORDERED: NEOSTIGMINE 10 MG/10 ML VIAL. (07:58)
[2017-10-19] MEDS ORDERED: GLYCOPYRROLATE 1 MG/5 ML VIAL. (07:59)
[2017-10-19] MEDS: HEPARIN SODIUM 1,000 UNIT in IV NORMAL SALINE 100ML 100 ML IRR (08:00)
[2017-10-19] MEDS: IV RINGERS,LACTATED 1000ML 1,000 ML IV (08:23)
[2017-10-19] MEDS ORDERED: LIDOCAINE 1% PF 2 ML VIAL. ID (08:30)
[2017-10-19] MEDS: PROCHLORPERAZINE 10 MG/2 ML VIAL. IV (08:47)
[2017-10-19] MEDS: MORPHINE SULFATE 2 MG/ML DISP.SYRIN. IV ×2 (08:50→09:02)
[2017-10-19 09:38] LABS: POC GLUCOSE 265 mg/dL (70-99)
[2017-10-19 09:38] LABS: POC GLUCOSE 230 mg/dL (70-99)
[2017-10-19] MEDS: oxyCODONE/APAP 10/325 1 TAB TABLET PO (09:40)
[2017-10-19] MEDS ORDERED: oxyCODONE/APAP 10/325 1 TAB TABLET (09:43)
[2017-10-19] MEDS ORDERED: oxyCODONE/APAP 10/325 1 TAB TABLET PO (09:45)
== END 2017-10-19 10:04 | disposition home or self-care (01) ==
LOC: SURG 05:51
DX: I13.2 Hypertensive heart and chronic kidney disease with heart failure and with stage 5 chronic kidney disease, or end stage renal disease (principal); E11.22 Type 2 diabetes mellitus with diabetic chronic kidney disease; N18.6 End stage renal disease; I50.9 Heart failure, unspecified; Z99.2 Dependence on renal dialysis; F41.9 Anxiety disorder, unspecified; F32.9 Major depressive disorder, single episode, unspecified; E78.00 Pure hypercholesterolemia, unspecified; E11.42 Type 2 diabetes mellitus with diabetic polyneuropathy; I25.119 Atherosclerotic heart disease of native coronary artery with unspecified angina pectoris; J43.9 Emphysema, unspecified; M79.7 Fibromyalgia; Z90.710 Acquired absence of both cervix and uterus; Z98.890 Other specified postprocedural states; Z89.512 Acquired absence of left leg below knee; Z83.3 Family history of diabetes mellitus; Z82.49 Family history of ischemic heart disease and other diseases of the circulatory system; Z80.52 Family history of malignant neoplasm of bladder; Z80.59 Family history of malignant neoplasm of other urinary tract organ; F17.210 Nicotine dependence, cigarettes, uncomplicated; Z88.1 Allergy status to other antibiotic agents; Z88.0 Allergy status to penicillin; Z88.8 Allergy status to other drugs, medicaments and biological substances; Z79.4 Long term (current) use of insulin; Z79.2 Long term (current) use of antibiotics; Z79.899 Other long term (current) drug therapy; Z91.018 Allergy to other foods; Z88.6 Allergy status to analgesic agent; Z95.5 Presence of coronary angioplasty implant and graft; Z95.1 Presence of aortocoronary bypass graft; Z86.718 Personal history of other venous thrombosis and embolism; Z79.01 Long term (current) use of anticoagulants; Z87.01 Personal history of pneumonia (recurrent); E66.9 Obesity, unspecified; Z68.25 Body mass index [BMI] 25.0-25.9, adult; K21.9 Gastro-esophageal reflux disease without esophagitis; Z90.79 Acquired absence of other genital organ(s); Z87.440 Personal history of urinary (tract) infections; M19.90 Unspecified osteoarthritis, unspecified site; Z86.14 Personal history of Methicillin resistant Staphylococcus aureus infection; Z82.61 Family history of arthritis
CPT/HCPCS: 49324; 82962; A7015; J0780; J1100; J1644; J2001; J2270; J2370; J2405; J2704; J2710; J3010; J3370; J3490; J7030

== ENCOUNTER → 2017-10-23 | Outpatient (CLI) | payer MEDICARE | END | disposition home or self-care (01) | LOC: PMGWOUND 10:38 | DX: E11.621 Type 2 diabetes mellitus with foot ulcer (principal); L97.411 Non-pressure chronic ulcer of right heel and midfoot limited to breakdown of skin; L97.512 Non-pressure chronic ulcer of other part of right foot with fat layer exposed; F41.9 Anxiety disorder, unspecified; I25.10 Atherosclerotic heart disease of native coronary artery without angina pectoris; J43.9 Emphysema, unspecified; K21.9 Gastro-esophageal reflux disease without esophagitis; E11.22 Type 2 diabetes mellitus with diabetic chronic kidney disease; I13.2 Hypertensive heart and chronic kidney disease with heart failure and with stage 5 chronic kidney disease, or end stage renal disease; N18.6 End stage renal disease; I50.33 Acute on chronic diastolic (congestive) heart failure; F32.9 Major depressive disorder, single episode, unspecified; E66.9 Obesity, unspecified; E78.00 Pure hypercholesterolemia, unspecified; E11.42 Type 2 diabetes mellitus with diabetic polyneuropathy; M19.90 Unspecified osteoarthritis, unspecified site; E78.5 Hyperlipidemia, unspecified; E21.3 Hyperparathyroidism, unspecified; I25.2 Old myocardial infarction; G89.29 Other chronic pain; I48.0 Paroxysmal atrial fibrillation; E11.52 Type 2 diabetes mellitus with diabetic peripheral angiopathy with gangrene; I96 Gangrene, not elsewhere classified; E11.69 Type 2 diabetes mellitus with other specified complication; M86.8X7 Other osteomyelitis, ankle and foot; E11.43 Type 2 diabetes mellitus with diabetic autonomic (poly)neuropathy; F17.210 Nicotine dependence, cigarettes, uncomplicated; Z89.511 Acquired absence of right leg below knee; Z89.612 Acquired absence of left leg above knee; Z86.718 Personal history of other venous thrombosis and embolism; Z95.1 Presence of aortocoronary bypass graft; Z90.710 Acquired absence of both cervix and uterus; Z89.512 Acquired absence of left leg below knee; Z79.01 Long term (current) use of anticoagulants; Z68.25 Body mass index [BMI] 25.0-25.9, adult; Z79.4 Long term (current) use of insulin; Z99.2 Dependence on renal dialysis | CPT/HCPCS: 11042; 73630 ==

== ENCOUNTER → 2017-11-13 | Outpatient (CLI) | payer MEDICARE | END | disposition home or self-care (01) | LOC: PMGWOUND 10:20 | DX: E11.621 Type 2 diabetes mellitus with foot ulcer (principal); L97.411 Non-pressure chronic ulcer of right heel and midfoot limited to breakdown of skin; L97.512 Non-pressure chronic ulcer of other part of right foot with fat layer exposed; F41.9 Anxiety disorder, unspecified; I25.10 Atherosclerotic heart disease of native coronary artery without angina pectoris; J43.9 Emphysema, unspecified; E11.52 Type 2 diabetes mellitus with diabetic peripheral angiopathy with gangrene; I96 Gangrene, not elsewhere classified; K21.9 Gastro-esophageal reflux disease without esophagitis; E11.22 Type 2 diabetes mellitus with diabetic chronic kidney disease; I13.2 Hypertensive heart and chronic kidney disease with heart failure and with stage 5 chronic kidney disease, or end stage renal disease; N18.6 End stage renal disease; I50.33 Acute on chronic diastolic (congestive) heart failure; E78.5 Hyperlipidemia, unspecified; E21.3 Hyperparathyroidism, unspecified; F32.9 Major depressive disorder, single episode, unspecified; I25.2 Old myocardial infarction; E66.9 Obesity, unspecified; G89.29 Other chronic pain; E11.69 Type 2 diabetes mellitus with other specified complication; M86.8X7 Other osteomyelitis, ankle and foot; I48.0 Paroxysmal atrial fibrillation; E78.00 Pure hypercholesterolemia, unspecified; E11.42 Type 2 diabetes mellitus with diabetic polyneuropathy; E11.43 Type 2 diabetes mellitus with diabetic autonomic (poly)neuropathy; M19.90 Unspecified osteoarthritis, unspecified site; F17.210 Nicotine dependence, cigarettes, uncomplicated; Z89.612 Acquired absence of left leg above knee; Z89.511 Acquired absence of right leg below knee; Z90.710 Acquired absence of both cervix and uterus; Z95.5 Presence of coronary angioplasty implant and graft; Z86.718 Personal history of other venous thrombosis and embolism; Z95.1 Presence of aortocoronary bypass graft; Z79.4 Long term (current) use of insulin; Z79.01 Long term (current) use of anticoagulants; Z99.2 Dependence on renal dialysis; Z68.25 Body mass index [BMI] 25.0-25.9, adult | CPT/HCPCS: 11042; 87071; 87075 ==

== ENCOUNTER → 2017-11-20 | Outpatient (CLI) | payer MEDICARE | END | disposition home or self-care (01) | LOC: PMGWOUND 11:45 | DX: E11.621 Type 2 diabetes mellitus with foot ulcer (principal); L97.411 Non-pressure chronic ulcer of right heel and midfoot limited to breakdown of skin; L97.512 Non-pressure chronic ulcer of other part of right foot with fat layer exposed; F41.9 Anxiety disorder, unspecified; I25.10 Atherosclerotic heart disease of native coronary artery without angina pectoris; J43.9 Emphysema, unspecified; E11.52 Type 2 diabetes mellitus with diabetic peripheral angiopathy with gangrene; I96 Gangrene, not elsewhere classified; K21.9 Gastro-esophageal reflux disease without esophagitis; E11.22 Type 2 diabetes mellitus with diabetic chronic kidney disease; I13.2 Hypertensive heart and chronic kidney disease with heart failure and with stage 5 chronic kidney disease, or end stage renal disease; N18.6 End stage renal disease; I50.33 Acute on chronic diastolic (congestive) heart failure; E78.5 Hyperlipidemia, unspecified; E21.3 Hyperparathyroidism, unspecified; F32.9 Major depressive disorder, single episode, unspecified; I25.2 Old myocardial infarction; E66.9 Obesity, unspecified; G89.29 Other chronic pain; E11.69 Type 2 diabetes mellitus with other specified complication; M86.8X7 Other osteomyelitis, ankle and foot; I48.0 Paroxysmal atrial fibrillation; E78.00 Pure hypercholesterolemia, unspecified; E11.42 Type 2 diabetes mellitus with diabetic polyneuropathy; E11.43 Type 2 diabetes mellitus with diabetic autonomic (poly)neuropathy; M19.90 Unspecified osteoarthritis, unspecified site; L84 Corns and callosities; F17.210 Nicotine dependence, cigarettes, uncomplicated; Z89.612 Acquired absence of left leg above knee; Z89.511 Acquired absence of right leg below knee; Z90.710 Acquired absence of both cervix and uterus; Z95.5 Presence of coronary angioplasty implant and graft; Z86.718 Personal history of other venous thrombosis and embolism; Z95.1 Presence of aortocoronary bypass graft; Z79.4 Long term (current) use of insulin; Z79.01 Long term (current) use of anticoagulants; Z99.2 Dependence on renal dialysis | CPT/HCPCS: 97597 ==

== ENCOUNTER → 2017-11-27 | Outpatient (CLI) | payer MEDICARE | END | disposition home or self-care (01) | LOC: PMGWOUND 10:37 | DX: E11.621 Type 2 diabetes mellitus with foot ulcer (principal); L97.411 Non-pressure chronic ulcer of right heel and midfoot limited to breakdown of skin; L97.512 Non-pressure chronic ulcer of other part of right foot with fat layer exposed; F41.9 Anxiety disorder, unspecified; I25.10 Atherosclerotic heart disease of native coronary artery without angina pectoris; J43.9 Emphysema, unspecified; E11.52 Type 2 diabetes mellitus with diabetic peripheral angiopathy with gangrene; I96 Gangrene, not elsewhere classified; K21.9 Gastro-esophageal reflux disease without esophagitis; E11.22 Type 2 diabetes mellitus with diabetic chronic kidney disease; I13.2 Hypertensive heart and chronic kidney disease with heart failure and with stage 5 chronic kidney disease, or end stage renal disease; N18.6 End stage renal disease; I50.33 Acute on chronic diastolic (congestive) heart failure; E78.5 Hyperlipidemia, unspecified; E21.3 Hyperparathyroidism, unspecified; F32.9 Major depressive disorder, single episode, unspecified; I25.2 Old myocardial infarction; E66.9 Obesity, unspecified; G89.29 Other chronic pain; E11.69 Type 2 diabetes mellitus with other specified complication; M86.8X7 Other osteomyelitis, ankle and foot; I48.0 Paroxysmal atrial fibrillation; E78.00 Pure hypercholesterolemia, unspecified; E11.42 Type 2 diabetes mellitus with diabetic polyneuropathy; E11.43 Type 2 diabetes mellitus with diabetic autonomic (poly)neuropathy; M19.90 Unspecified osteoarthritis, unspecified site; L84 Corns and callosities; F17.210 Nicotine dependence, cigarettes, uncomplicated; Z89.612 Acquired absence of left leg above knee; Z89.511 Acquired absence of right leg below knee; Z90.710 Acquired absence of both cervix and uterus; Z95.5 Presence of coronary angioplasty implant and graft; Z86.718 Personal history of other venous thrombosis and embolism; Z95.1 Presence of aortocoronary bypass graft; Z79.4 Long term (current) use of insulin; Z79.01 Long term (current) use of anticoagulants; Z99.2 Dependence on renal dialysis; Z68.25 Body mass index [BMI] 25.0-25.9, adult | CPT/HCPCS: 97597 ==

== ENCOUNTER 2017-12-02 19:06 | Inpatient (IN) | payer MEDICARE ==
[~2017-12-02] VITALS: Ht 172.7 cm; Wt 80.9 kg
[~2017-12-02 19:06] MED LIST changes: +ACET325T9 PO; +AMIO200T4 PO; +AMLO5TAB4 PO; +APIX2.5T PO; +ASPI325T8 PO; +ATROVENT HFA12.9 GM IH; +AZIT250T6 PO; +CARV12.5 PO; +CARV12.52 PO; +CARV25TA2 PO; +CARV3.122 PO; +CEFA1PIG IV; +CIPR250T PO; +CIPR250T30 PO; +CIPR500T94 PO; +CLOP75TA PO; +DARB60DI SQ; +DILT180C2 PO; +DOCU100C28 PO; +ERYT250C8 PO; +FENO145T PO; +FERR210T PO; +FLUC100T PO; +FLUC100T4 PO; +FLUC100T7 PO; +FLUT1DIS IH; +FOLI0.8T3 PO; +FURO80TA3 PO; +HYDR-2758 PO; +INSU100C4 SQ; +INSU100I13 SQ; +INSU100V8 SQ; -IV RINGERS,LACTATED 1000ML 1,000 ML IV; -LIDOCAINE 1% PF 2 ML VIAL. ID; +LIPITOR80 MG PO; +METO10TA81 PO; +MINO50CA3 PO; +MORP15TA3 PO; -MORPHINE SULFATE 2 MG/ML DISP.SYRIN. IV; +MULT-237 PO; +NIAC500T9 PO; +NITR0.4T SL; +NYST15PO9 TP; +ONDA4TAB10 PO; +ONDA4TAB7 PO; +OXYC-328 PO; +OXYC10TA PO; -PROCHLORPERAZINE 10 MG/2 ML VIAL. IV; +PROVENTIL HFA6.7 GM IH; +SENN-22 PO; +SEVE800T9 PO; +SUCR1TAB PO; +TICA90TA PO; +TRAM50TA PO; +[UNRECOGNIZED DRUG - OTHER]; +auryxia PO
--- NOTE | 2017-12-02 19:49 | PHYS DOC ---
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 Patient states she normally voids regularly despite being on dialysis. Patient also states she feels her lower back is swollen. She is also complaining of generalized pain from her low back to her legs she has left BKA. PCP Dr. Arroyo Review of Systems Review of Systems Constitutional: Denies fever or chills [] Eyes: Denies change in visual acuity, redness, or eye pain [] HENT: Denies nasal congestion or sore throat [] Respiratory: Denies cough or shortness of breath [] Cardiovascular: No additional information not addressed in HPI [] GI: Denies abdominal pain, nausea, vomiting, bloody stools or diarrhea [] : Reports anuria Musculoskeletal: Reports low back pain and swelling Integument: Denies rash or skin lesions [] Neurologic: Denies headache, focal weakness or sensory changes [] All other systems were reviewed and found to be within normal limits, except as documented in this note. Current Medications Current Medications Current Medications Medications (Trade) Dose Ordered Sig/Martin Start Time Stop Time Status Last Admin Dose Admin Morphine Sulfate (Morphine Sulfate) 4 mg PRN Q2HR PRN 12/02/17 22:45 12/03/17 22:44 Ondansetron HCl (Zofran) 4 mg PRN Q8HRS PRN 12/02/17 22:45 12/03/17 22:44 Potassium Chloride (Klor-Con) 40 meq 1X ONCE 12/02/17 22:45 12/02/17 22:46 Allergies Allergies Allergies Coded Allergies Type Severity Reaction Last Updated Verified Sulfa (Sulfonamide Antibiotics) Allergy Severe Anaphylaxis 10/19/17 Yes meropenem Allergy Intermediate Rash 10/19/17 Yes piperacillin Allergy Intermediate Rash 10/19/17 Yes strawberry Allergy Intermediate 10/19/17 Yes tazobactam Allergy Intermediate 10/19/17 Yes cefazolin Adverse Reaction Intermediate Itching 10/19/17 Yes fentanyl Adverse Reaction Intermediate Nausea and Vomiting 10/19/17 Yes Physical Exam Physical Exam Constitutional: Well developed, well nourished, no acute distress, non-toxic appearance. [] HENT: Normocephalic, atraumatic, bilateral external ears normal, oropharynx moist, no oral exudates, nose normal. [] Eyes: PERRLA, EOMI, conjunctiva normal, no discharge. [] Neck: Normal range of motion, no tenderness, supple, no stridor. [] Cardiovascular:Heart rate regular rhythm, no murmur [] Lungs & Thorax: Bilateral breath sounds clear to auscultation [] Abdomen: Peritoneal dialysis catheter noted on the abdomen and left side. Bowel sounds normal, soft, no tenderness, no masses, no pulsatile masses. [] Skin: Skin appears dry. Back: Diffuse paraspinal muscle tenderness to bilateral lumbar spine, no midline lumbar spine, no CVA tenderness. [] Extremities: No tenderness, no cyanosis, no clubbing, ROM intact, no edema. Left below the knee amputation noted. Neurologic: Alert and oriented X 3, normal motor function, normal sensory function, no focal deficits noted. [] Psychologic: Affect normal, judgement normal, mood normal. [] Current Patient Data Vital Signs Vital Signs Date Time Temp Pulse Resp B/P (MAP) Pulse Ox O2 Delivery O2 Flow Rate FiO2 12/02/17 20:04 20 98 Room Air 12/02/17 19:15 98.9 86 175/79 (111) 98.9 Lab Values Laboratory Tests Test 12/02/17 19:45 12/02/17 21:30 White Blood Count 13.6 x10^3/uL (4.0-11.0) H Red Blood Count 3.67 x10^6/uL (3.50-5.40) Hemoglobin 11.4 g/dL (12.0-15.5) L Hematocrit 33.6 % (36.0-47.0) L Mean Corpuscular Volume 92 fL (79-100) Mean Corpuscular Hemoglobin 31 pg (25-35) Mean Corpuscular Hemoglobin Concent 34 g/dL (31-37) Red Cell Distribution Width 14.1 % (11.5-14.5) Platelet Count 373 x10^3/uL (140-400) Neutrophils (%) (Auto) 80 % (31-73) H Lymphocytes (%) (Auto) 9 % (24-48) L Monocytes (%) (Auto) 5 % (0-9) Eosinophils (%) (Auto) 5 % (0-3) H Basophils (%) (Auto) 1 % (0-3) Neutrophils # (Auto) 10.9 x10^3uL (1.8-7.7) H Lymphocytes # (Auto) 1.2 x10^3/uL (1.0-4.8) Monocytes # (Auto) 0.7 x10^3/uL (0.0-1.1) Eosinophils # (Auto) 0.7 x10^3/uL (0.0-0.7) Basophils # (Auto) 0.1 x10^3/uL (0.0-0.2) Sodium Level 138 mmol/L (136-145) Potassium Level 3.2 mmol/L (3.5-5.1) L Chloride Level 95 mmol/L (98-107) L Carbon Dioxide Level 23 mmol/L (21-32) Anion Gap 20 (6-14) H Blood Urea Nitrogen 94 mg/dL (7-20) H Creatinine 8.0 mg/dL (0.6-1.0) H Estimated GFR (Cockcroft-Gault) 5.3 BUN/Creatinine Ratio 12 (6-20) Glucose Level 98 mg/dL (70-99) Calcium Level 7.0 mg/dL (8.5-10.1) L Total Bilirubin 0.4 mg/dL (0.2-1.0) Aspartate Amino Transferase (AST) 30 U/L (15-37) Alanine Aminotransferase (ALT) 47 U/L (14-59) Alkaline Phosphatase 169 U/L (46-116) H Total Protein 7.5 g/dL (6.4-8.2) Albumin 2.5 g/dL (3.4-5.0) L Albumin/Globulin Ratio 0.5 (1.0-1.7) L Urine Collection Type U cath Urine Color Yellow Urine Clarity Hazy Urine pH 6.0 Urine Specific [place] 1.020 Urine Protein >=300 mg/dL (NEG-TRACE) Urine Glucose (UA) Negative mg/dL (NEG) Urine Ketones (Stick) Negative mg/dL (NEG) Urine Blood Moderate (NEG) Urine Nitrite Negative (NEG) Urine Bilirubin Small (NEG) Urine Urobilinogen Dipstick 1.0 mg/dL (0.2 mg/dL) Urine Leukocyte Esterase Small (NEG) Urine RBC 1-2 /HPF (0-2) Urine WBC 1-4 /HPF (0-4) Urine Squamous Epithelial Cells Many /LPF Urine Bacteria Few /HPF (0-FEW) Laboratory Tests 12/02/17 19:45 Laboratory Tests 12/02/17 19:45 EKG EKG [] Radiology/Procedures Radiology/Procedures [] Course & Med Decision Making Course & Med Decision Making Pertinent Labs and Imaging studies reviewed. (See chart for details) This is a 52-year-old female patient on end-stage renal disease currently on peritoneal dialysis presenting today complaining of anuria since Thursday. Patient states she has been voiding regularly until Thursday when she stopped voiding completely. She also feels her low back is swollen and she has pain from her low back into her legs. She has left below the knee amputation. CBC with a WBC of 13.6, CMP with potassium of 3.2, patient was given oral potassium replacement. Creatinine 8.01 BUN 94. Patient voided in the ED. Urine was sent to lab, urine appears contaminated. Patient states she cannot be discharged to home, she states she has intractable back and leg pain and would like to be admitted for pain control. Off note patient has continued to ask for pain medicine since arrival to the ED. Consulted with Dr. Garrison who recommended we order ultrasound of the kidneys. 22:[address] staton who accepted patient for admission. Dragon Disclaimer Dragon Disclaimer This electronic medical record was generated, in whole or in part, using a voice recognition dictation system. Departure Departure Impression: Primary Impression: Intractable back pain Additional Impression: Anuria Disposition: ADMITTED INPATIENT Condition: STABLE Referrals: MAGDA ARROYO MD (PCP) Problem Qualifiers ARY CA[employer] Dec 02, 2017 19:49
[2017-12-02] MEDS ORDERED: MORPHINE SULFATE 10 MG/ML VIAL. IV ONE ×2 (20:00→22:30)
[2017-12-02 20:13] LABS: BASO # 0.1 x10^3/uL (0.0-0.2); BASO % 1 % (0-3); EOS # 0.7 x10^3/uL (0.0-0.7); EOS % 5 % (0-3); HEMATOCRIT 33.6 % (36.0-47.0); HEMOGLOBIN 11.4 g/dL (12.0-15.5); LYMPH # 1.2 x10^3/uL (1.0-4.8); LYMPH % 9 % (24-48); MEAN CORPUSCULAR HEMOGLOBIN 31 pg (25-35); MEAN CORPUSCULAR HGB CONC 34 g/dL (31-37); MEAN CORPUSCULAR VOLUME 92 fL (79-100); MONO # 0.7 x10^3/uL (0.0-1.1); MONO % 5 % (0-9); NEUT # 10.9 x10^3uL (1.8-7.7); NEUT % 80 % (31-73); PLATELET COUNT 373 x10^3/uL (140-400); RED BLOOD COUNT 3.67 x10^6/uL (3.50-5.40); RED CELL DISTRIBUTION WIDTH 14.1 % (11.5-14.5); WHITE BLOOD COUNT 13.6 x10^3/uL (4.0-11.0)
[2017-12-02 20:28] LABS: GFR 5.3; POTASSIUM 3.2 mmol/L (3.5-5.1)
[2017-12-02 20:33] LABS: ALBUMIN 2.5 g/dL (3.4-5.0); ALBUMIN/GLOBULIN RATIO 0.5 (1.0-1.7); TOTAL BILIRUBIN 0.4 mg/dL (0.2-1.0); TOTAL PROTEIN 7.5 g/dL (6.4-8.2)
--- NOTE | 2017-12-02 20:50 | RAD ---
CT ABDOMEN PELVIS WO CONTRAST dated 12/02/2017 7:39 PM Indication: Flank pain.flank pain, renal failure, no priors. Comparison: No comparison is available. Technique: Contiguous axial imaging of the abdomen and pelvis performed without the administration of intravenous contrast. One or more of the following individualized dose reduction techniques were utilized for this examination: 1. Automated exposure control 2. Adjustment of the mA and/or kV according to patient size 3. Use of iterative reconstruction technique Findings: Limited images of lung bases show mild patchy and linear opacity in the left lower lobe. Heart size within normal limits. No pleural or pericardial effusion. Patient is status post median sternotomy and CABG procedure. Solid abdominal viscera not well evaluated in the absence of contrast material. No apparent attenuation abnormality of the liver. The spleen is normal in size. Pancreas, adrenal glands and kidneys are unremarkable. No hydronephrosis. There is a small hyperdense nodule at the midpole left kidney that measures 1.2 cm in size, indeterminate. Gallbladder is distended without apparent calcific stone. Unopacified GI tract normal in caliber and contour. No focal bowel wall thickening. Peritoneal dialysis catheter in place. There is a small bubble of gas within the subcutaneous tissues near the peritoneal catheter entrance site with patchy increased density in the subcutaneous fat. No drainable fluid collection. There are scattered diverticula within the colon. Small amount of ascites. There are a few borderline enlarged retroperitoneal lymph nodes. No mesenteric adenopathy. Images of the pelvis show nondistended urinary bladder. No free pelvic fluid or pelvic lymphadenopathy. There is generalized anasarca. Bone windows show no acute findings. Mild multilevel spondylosis. IMPRESSION: 1. Peritoneal dialysis catheter in place with small amount of ascites. 2. There is a small bubble of gas within the subcutaneous tissues anterior abdominal wall near the peritoneal dialysis catheter entrance site, of uncertain etiology. This could be related to recent placement of the catheter, although early infection in the overlying subcutaneous tissues cannot be excluded. There is no drainable abscess. 3. Diffuse anasarca. 4. Small hyperdense nodule at the midpole left kidney, indeterminate. This could represent a complex cyst or solid mass. If indicated, ultrasound could better evaluate. 5. Distended gallbladder with no apparent stone. Electronically signed by: Felipe Combs MD (12/02/2017 8:46 PM) [facility] [id number]
[2017-12-02 21:47] LABS: BILIRUBIN,URINE SMALL (NEG); COLOR,URINE YELLOW; NITRITE,URINE NEGATIVE (NEG); PROTEIN,URINE >=300 mg/dL (NEG-TRACE)
[2017-12-02 22:00] LABS: CLARITY,URINE HAZY
[2017-12-02 22:03] LABS: BACTERIA,URINE FEW /HPF (0-FEW)
[2017-12-02 22:04] LABS: SQUAMOUS EPITHELIAL CELL,UR MANY /LPF
[2017-12-02] MEDS ORDERED: POTASSIUM CHLORIDE 20 MEQ TABLET.ER. PO ONE (22:45)
[2017-12-02] MEDS: ONDANSETRON PF 4 MG/2 ML VIAL. IV PRN (23:09)
[2017-12-02 23:30] VITALS: BP 185/84
--- NOTE | 2017-12-02 23:57 | RAD ---
Renal ultrasound 12/02/2017 CLINICAL HISTORY: Flank pain. Renal failure. Mass lesion seen involving the left kidney on CT scan. TECHNIQUE: A real-time ultrasound examination of both kidneys and the urinary bladder was performed. Multiple images were obtained. FINDINGS: Comparison is made to the patient's CT scan of the abdomen performed earlier today. Both kidneys are within normal limits in size. The right kidney measures 10.5 cm in length. The left kidney measures 10.2 cm in length. A 9 mm simple cyst is seen involving the midpole of the right kidney. No additional abnormality of the right kidney is seen. A 1.4 cm rounded mass lesion which is isoechoic to the renal cortex is seen involving the midpole of the left kidney. This corresponds to the hyper dense lesion seen on CT. Its ultrasound and CT appearance are nonspecific. A small renal cell carcinoma is not excluded. No additional abnormality of the left kidney is seen. There is no evidence of hydronephrosis. The urinary bladder is distended with urine. No abnormality is seen. IMPRESSION: 1.4 cm solid mass is seen involving the midpole of the left kidney. Its ultrasound and CT appearance are nonspecific as outlined above. A small renal cell carcinoma is not excluded. Electronically signed by: Ashu Berg MD (12/02/2017 11:54 PM) [facility]
[2017-12-02] MEDS ORDERED: CINA30TA2 PO (23:59)
[2017-12-02] MEDS ORDERED: INSU100I13 SQ (23:59)
[2017-12-03] MEDS: MORPHINE SULFATE 4 MG/ML VIAL. IV PRN ×3 (00:58→08:52)
[2017-12-03 03:00] VITALS: BP 124/61
[2017-12-03 04:42] LABS: BASO # 0.1 x10^3/uL (0.0-0.2); BASO % 1 % (0-3); EOS # 0.7 x10^3/uL (0.0-0.7); EOS % 6 % (0-3); HEMATOCRIT 32.5 % (36.0-47.0); LYMPH # 1.5 x10^3/uL (1.0-4.8); LYMPH % 12 % (24-48); MEAN CORPUSCULAR HEMOGLOBIN 31 pg (25-35); MEAN CORPUSCULAR HGB CONC 34 g/dL (31-37); MEAN CORPUSCULAR VOLUME 91 fL (79-100); MONO # 0.7 x10^3/uL (0.0-1.1); MONO % 6 % (0-9); NEUT # 9.2 x10^3uL (1.8-7.7); NEUT % 76 % (31-73); PLATELET COUNT 353 x10^3/uL (140-400); RED BLOOD COUNT 3.55 x10^6/uL (3.50-5.40); RED CELL DISTRIBUTION WIDTH 13.8 % (11.5-14.5); WHITE BLOOD COUNT 12.1 x10^3/uL (4.0-11.0)
[2017-12-03 04:55] LABS: CALCIUM 6.7 mg/dL (8.5-10.1); CREATININE 8.1 mg/dL (0.6-1.0); GFR 5.2; POTASSIUM 3.5 mmol/L (3.5-5.1)
[2017-12-03] MEDS: ONDANSETRON PF 4 MG/2 ML VIAL. IV PRN (08:52)
[2017-12-03] MEDS ORDERED: NITROGLYCERIN SUBLINGUAL 0.4 MG BOTTLE OF 25. SL PRN (09:15)
[2017-12-03] MEDS ORDERED: NON FORMULARY ITEM (Albuterol Sulfate (Proventil Hfa Inhaler) 2 PUFF) IH PRN (09:15)
[2017-12-03] MEDS ORDERED: NYSTATIN TOPICAL POWDER 15GM BOTTLE. TP PRN (09:15)
[2017-12-03] MEDS ORDERED: DOCUSATE SODIUM 100 MG CAPSULE. PO PRN (09:15)
--- NOTE | 2017-12-03 09:20 | PDOC1 ---
History and Physical Date of Admission Date of Admission DATE: 12/03/17 TIME: 09:17 Identification/Chief Complaint Chief Complaint back pain Source Source: Chart review, Patient History of Present Illness History of Present Illness Deepali is a 52 year old female admit with acute on chronic back pain, new leg weaknes sand pain, allodynia to legs, She also is upset that she cannot make urine, has ESRD, was changed to PD 4 weeks ago, and feels dry, is below dry weight despite LE edema in right foot persisting,. wound to right foot, following wound care clinic as outpatient back pain is limiting, she can not transfer well and reports she cannot walk. PCP Dr. Abad Past Medical History Cardiovascular: CAD, HTN, IA, Hyperlipidemia, Aortic stenosis, Valve insufficiency, Other Pulmonary: Asthma, COPD, Pneumonia CENTRAL NERVOUS SYSTEM: Other GI: GERD, Other Heme/Onc: Anemia NOS Hepatobiliary: No pertinent hx Psych: No pertinent hx Rheumatologic: Fibromyalgia Infectious disease: Other Renal/: Chronic renal failure Endocrine: Diabetes, Hyperparathyroidism Past Surgical History Past Surgical History: CABG, Hysterectomy, Other Family History Family History: Diabetes, Hypertension Social History ALCOHOL: none Drugs: None, Other Current Problem List Problem List Problems Medical Problems: (1) Anuria Status: Acute (2) Intractable back pain Status: Acute Current Medications Current Medications Current Medications Morphine Sulfate (Morphine Sulfate) 5 mg 1X ONCE IV Last administered on at 20:04; Start 12/02/17 at 20:00; Stop 12/02/17 at 20:01; Status DC Morphine Sulfate (Morphine Sulfate) 5 mg 1X ONCE IV Last administered on at 23:00; Start 12/02/17 at 22:30; Stop 12/02/17 at 22:31; Status DC Potassium Chloride (Klor-Con) 40 meq 1X ONCE PO Last administered on 12/02/17at 23:09; Start 12/02/17 at 22:45; Stop 12/02/17 at 22:46; Status DC Ondansetron HCl (Zofran) 4 mg PRN Q8HRS PRN IV NAUSEA/VOMITING Last administered on 12/03/17at 08:52; Start 12/02/17 at 22:45; Stop 12/03/17 at 22:44 Morphine Sulfate (Morphine Sulfate) 4 mg PRN Q2HR PRN IV PAIN Last administered on 12/03/17at 08:52; Start 12/02/17 at 22:45; Stop 12/03/17 at 22:44 Active Scripts Active Brilinta (Ticagrelor) 90 Mg Tablet 90 Mg PO BID 30 Days Percocet 10-325 Mg Tablet (Oxycodone/Acetaminophen) 1 Each Tablet 1 Tab PO Q4HRS Morphine Sulfate Er (Morphine Sulfate) 15 Mg Tablet.er 15 Mg PO BID Reported Sensipar (Cinacalcet Hcl) 30 Mg Tablet 1 Tab PO DAILY Lantus Solostar (Insulin Glargine,Hum.rec.anlog) 100 Unit/1 Ml Insuln.pen 18 Unit SQ QHS Cipro (Ciprofloxacin Hcl) 500 Mg Tablet 1 Tab PO BID Diflucan (Fluconazole) 100 Mg Tablet 100 Mg PO PRN Carvedilol 3.125 Mg Tablet 1 Tab PO BID Erythromycin (Erythromycin Base) 250 Mg Capsule.dr 250 Mg PO BID Cardizem Cd (Diltiazem Hcl) 180 Mg Cap.er.24h 120 Mg PO DAILY Amiodarone Hcl 200 Mg Tablet 1 Tab PO DAILY Ferric Citrate 210 Mg Tablet 210 Mg PO 3X/WEEK Nystatin 15 Gm Powder 1 Susanna TP PRN BID PRN Proventil Hfa Inhaler (Albuterol Sulfate) 6.7 Gm Hfa.aer.ad 2 Puff IH BID PRN Zofran (Ondansetron Hcl) 4 Mg Tablet 4 Mg PO Q6-8HRS PRN Nephro-Shabbir Tablet (Folic Acid/Vitamin B Comp W-C) 0.8 Mg Tablet 1 Tab PO DAILY Tramadol Hcl 50 Mg Tablet 50 Mg PO Q6H PRN Tricor (Fenofibrate Nanocrystallized) 145 Mg Tablet 1 Tab PO HS Lipitor (Atorvastatin Calcium) 80 Mg Tablet 80 Mg PO HS Niacin 500 Mg Tablet 500 Mg PO HS Novolog (Insulin Aspart) 100 Unit/1 Ml Cartridge 0 SQ TIDAC sliding scale Aspirin 325 Mg Tablet 325 Mg PO DAILY Furosemide 80 Mg Tablet 80 Mg PO BID Docusate Sodium 100 Mg Capsule 1 Cap PO PRN PRN Nitrostat (Nitroglycerin) 0.4 Mg Tab.subl 0.4 Mg SL PRN Q5MIN PRN Take as needed for chest pain Allergies Allergies: Coded Allergies: Sulfa (Sulfonamide Antibiotics) (Verified Allergy, Severe, Anaphylaxis, ) meropenem (Verified Allergy, Intermediate, Rash, 10/19/17) Tolerates ancef piperacillin (Verified Allergy, Intermediate, Rash, 10/19/17) Tolerates ancef strawberry (Verified Allergy, Intermediate, 10/19/17) tazobactam (Verified Allergy, Intermediate, 10/19/17) cefazolin (Verified Adverse Reaction, Intermediate, Itching, 10/19/17) Causes Vomiting fentanyl (Verified Adverse Reaction, Intermediate, Nausea and Vomiting, ) Vomiting ROS General: YES: Chills, Fatigue, Malaise PSYCHOLOGICAL ROS: YES: Sleep disturbances; No: Anxiety, Behavioral Disorder, Concentration difficultie, Decreased libido , Depression, Disorientation, Hallucinations, Hostility, Irritablity, Memory difficulties, Mood Swings, Obsessive thoughts, Other Eyes: No Blurry vision, No Decreased vision, No Double vision, No Dry eyes, No Excessive tearing, No Eye Pain, No Itchy Eyes, No Loss of vision, No Photophobia , No Scotomata, No Uses contacts, No Uses glasses, No Other HEENT: No: Heacaches, Visual Changes, Hearing change, Nasal congestion, Nasal discharge, Oral lesions, Sinus pain, Sore Throat, Epistaxis, Sneezing, Snoring, Tinnitus, Vertigo, Vocal changes, Other Hematological and Lymphatic: No: Bleeding Problems, Blood Clots, Blood Transfusions, Brusing, Night Sweats, Pallor, Swollen Lymph Nodes, Other Respiratory: No: Cough, Hemoptysis, Orthopnea, Pleuritic Pain, Shortness of breath, SOB with excertion, Sputum Changes, Stridor, Tachypnea, Wheezing, Other Cardiovascular: No Chest Pain, No Palpitations, No Orthopnea, No Paroxysmal Noc. Dyspnea, No Edema, No Lt Headedness, No Other Gastrointestinal: Yes Nausea; No Vomiting, No Abdominal Pain, No Diarrhea, No Constipation, No Melena, No Hematochezia, No Other Genitourinary: No Dysuria, No Frequency, No Incontinence, No Hematuria, No Retention, No Discharge, No Urgency, No Pain, No Flank Pain, No Other, No , No , No , No , No , No , No Musculoskeletal: Yes Joint Pain, Yes Muscle Pain, Yes Pain In: (back) Neurological: No Behavorial Changes, No Bowel/Bladder ControlChng, No Confusion , No Dizziness, No Gait Disturbance, No Headaches, No Impaired Coord/balance, No Memory Loss, No Numbness/Tingling, No Seizures, No Speech Problems, No Tremors, No Visual Changes, No Weakness, No Other Skin: No Dry Skin, No Eczema, No Hair Changes, No Lumps, No Mole Changes, No Mottling, No Nail Changes, No Pruritus, No Rash, No Skin Lesion Changes, No Other, No Acne Physical Exam Physical Exam BACK PAIN, with tight swollen area left of lumbar spine, very painful to light touch, worse with deep palpation, not reducible General: Alert, Oriented X3, Cooperative, mild distress HEENT: Atraumatic, PERRLA, EOMI Lungs: Clear to auscultation, Normal air movement Heart: S1S2, no gallops, no murmurs Extremities: No cyanosis, Other (2+ EDEMA TO RIGHT LEG, ) Skin: No rashes, No significant lesion Neuro: Normal speech, Normal tone Psych/Mental Status: Mental status NL, Mood NL Vitals Vitals Vital Signs Date Time Temp Pulse Resp B/P (MAP) Pulse Ox O2 Delivery O2 Flow Rate FiO2 12/03/17 08:52 16 97 Room Air 12/03/17 03:00 98.7 80 124/61 (82) 98.7 Labs Labs Laboratory Tests Test 12/02/17 19:45 12/02/17 21:30 12/03/17 04:20 12/03/17 08:41 White Blood Count 13.6 x10^3/uL (4.0-11.0) 12.1 x10^3/uL (4.0-11.0) Red Blood Count 3.67 x10^6/uL (3.50-5.40) 3.55 x10^6/uL (3.50-5.40) Hemoglobin 11.4 g/dL (12.0-15.5) 11.0 g/dL (12.0-15.5) Hematocrit 33.6 % (36.0-47.0) 32.5 % (36.0-47.0) Mean Corpuscular Volume 92 fL (79-100) 91 fL (79-100) Mean Corpuscular Hemoglobin 31 pg (25-35) 31 pg (25-35) Mean Corpuscular Hemoglobin Concent 34 g/dL (31-37) 34 g/dL (31-37) Red Cell Distribution Width 14.1 % (11.5-14.5) 13.8 % (11.5-14.5) Platelet Count 373 x10^3/uL (140-400) 353 x10^3/uL (140-400) Neutrophils (%) (Auto) 80 % (31-73) 76 % (31-73) Lymphocytes (%) (Auto) 9 % (24-48) 12 % (24-48) Monocytes (%) (Auto) 5 % (0-9) 6 % (0-9) Eosinophils (%) (Auto) 5 % (0-3) 6 % (0-3) Basophils (%) (Auto) 1 % (0-3) 1 % (0-3) Neutrophils # (Auto) 10.9 x10^3uL (1.8-7.7) 9.2 x10^3uL (1.8-7.7) Lymphocytes # (Auto) 1.2 x10^3/uL (1.0-4.8) 1.5 x10^3/uL (1.0-4.8) Monocytes # (Auto) 0.7 x10^3/uL (0.0-1.1) 0.7 x10^3/uL (0.0-1.1) Eosinophils # (Auto) 0.7 x10^3/uL (0.0-0.7) 0.7 x10^3/uL (0.0-0.7) Basophils # (Auto) 0.1 x10^3/uL (0.0-0.2) 0.1 x10^3/uL (0.0-0.2) Sodium Level 138 mmol/L (136-145) 138 mmol/L (136-145) Potassium Level 3.2 mmol/L (3.5-5.1) 3.5 mmol/L (3.5-5.1) Chloride Level 95 mmol/L (98-107) 96 mmol/L (98-107) Carbon Dioxide Level 23 mmol/L (21-32) 24 mmol/L (21-32) Anion Gap 20 (6-14) 18 (6-14) Blood Urea Nitrogen 94 mg/dL (7-20) 96 mg/dL (7-20) Creatinine 8.0 mg/dL (0.6-1.0) 8.1 mg/dL (0.6-1.0) Estimated GFR (Cockcroft-Gault) 5.3 5.2 BUN/Creatinine Ratio 12 (6-20) Glucose Level 98 mg/dL (70-99) 113 mg/dL (70-99) Calcium Level 7.0 mg/dL (8.5-10.1) 6.7 mg/dL (8.5-10.1) Total Bilirubin 0.4 mg/dL (0.2-1.0) Aspartate Amino Transf (AST/SGOT) 30 U/L (15-37) Alanine Aminotransferase (ALT/SGPT) 47 U/L (14-59) Alkaline Phosphatase 169 U/L (46-116) Total Protein 7.5 g/dL (6.4-8.2) Albumin 2.5 g/dL (3.4-5.0) Albumin/Globulin Ratio 0.5 (1.0-1.7) Urine Collection Type U cath Urine Color Yellow Urine Clarity Hazy Urine pH 6.0 Urine Specific [place] 1.020 Urine Protein >=300 mg/dL (NEG-TRACE) Urine Glucose (UA) Negative mg/dL (NEG) Urine Ketones (Stick) Negative mg/dL (NEG) Urine Blood Moderate (NEG) Urine Nitrite Negative (NEG) Urine Bilirubin Small (NEG) Urine Urobilinogen Dipstick 1.0 mg/dL (0.2 mg/dL) Urine Leukocyte Esterase Small (NEG) Urine RBC 1-2 /HPF (0-2) Urine WBC 1-4 /HPF (0-4) Urine Squamous Epithelial Cells Many /LPF Urine Bacteria Few /HPF (0-FEW) Glucose (Fingerstick) 98 mg/dL (70-99) Laboratory Tests Test 12/02/17 19:45 12/02/17 21:30 12/03/17 04:20 12/03/17 08:41 White Blood Count 13.6 x10^3/uL (4.0-11.0) 12.1 x10^3/uL (4.0-11.0) Red Blood Count 3.67 x10^6/uL (3.50-5.40) 3.55 x10^6/uL (3.50-5.40) Hemoglobin 11.4 g/dL (12.0-15.5) 11.0 g/dL (12.0-15.5) Hematocrit 33.6 % (36.0-47.0) 32.5 % (36.0-47.0) Mean Corpuscular Volume 92 fL (79-100) 91 fL (79-100) Mean Corpuscular Hemoglobin 31 pg (25-35) 31 pg (25-35) Mean Corpuscular Hemoglobin Concent 34 g/dL (31-37) 34 g/dL (31-37) Red Cell Distribution Width 14.1 % (11.5-14.5) 13.8 % (11.5-14.5) Platelet Count 373 x10^3/uL (140-400) 353 x10^3/uL (140-400) Neutrophils (%) (Auto) 80 % (31-73) 76 % (31-73) Lymphocytes (%) (Auto) 9 % (24-48) 12 % (24-48) Monocytes (%) (Auto) 5 % (0-9) 6 % (0-9) Eosinophils (%) (Auto) 5 % (0-3) 6 % (0-3) Basophils (%) (Auto) 1 % (0-3) 1 % (0-3) Neutrophils # (Auto) 10.9 x10^3uL (1.8-7.7) 9.2 x10^3uL (1.8-7.7) Lymphocytes # (Auto) 1.2 x10^3/uL (1.0-4.8) 1.5 x10^3/uL (1.0-4.8) Monocytes # (Auto) 0.7 x10^3/uL (0.0-1.1) 0.7 x10^3/uL (0.0-1.1) Eosinophils # (Auto) 0.7 x10^3/uL (0.0-0.7) 0.7 x10^3/uL (0.0-0.7) Basophils # (Auto) 0.1 x10^3/uL (0.0-0.2) 0.1 x10^3/uL (0.0-0.2) Sodium Level 138 mmol/L (136-145) 138 mmol/L (136-145) Potassium Level 3.2 mmol/L (3.5-5.1) 3.5 mmol/L (3.5-5.1) Chloride Level 95 mmol/L (98-107) 96 mmol/L (98-107) Carbon Dioxide Level 23 mmol/L (21-32) 24 mmol/L (21-32) Anion Gap 20 (6-14) 18 (6-14) Blood Urea Nitrogen 94 mg/dL (7-20) 96 mg/dL (7-20) Creatinine 8.0 mg/dL (0.6-1.0) 8.1 mg/dL (0.6-1.0) Estimated GFR (Cockcroft-Gault) 5.3 5.2 BUN/Creatinine Ratio 12 (6-20) Glucose Level 98 mg/dL (70-99) 113 mg/dL (70-99) Calcium Level 7.0 mg/dL (8.5-10.1) 6.7 mg/dL (8.5-10.1) Total Bilirubin 0.4 mg/dL (0.2-1.0) Aspartate Amino Transf (AST/SGOT) 30 U/L (15-37) Alanine Aminotransferase (ALT/SGPT) 47 U/L (14-59) Alkaline Phosphatase 169 U/L (46-116) Total Protein 7.5 g/dL (6.4-8.2) Albumin 2.5 g/dL (3.4-5.0) Albumin/Globulin Ratio 0.5 (1.0-1.7) Urine Collection Type U cath Urine Color Yellow Urine Clarity Hazy Urine pH 6.0 Urine Specific [place] 1.020 Urine Protein >=300 mg/dL (NEG-TRACE) Urine Glucose (UA) Negative mg/dL (NEG) Urine Ketones (Stick) Negative mg/dL (NEG) Urine Blood Moderate (NEG) Urine Nitrite Negative (NEG) Urine Bilirubin Small (NEG) Urine Urobilinogen Dipstick 1.0 mg/dL (0.2 mg/dL) Urine Leukocyte Esterase Small (NEG) Urine RBC 1-2 /HPF (0-2) Urine WBC 1-4 /HPF (0-4) Urine Squamous Epithelial Cells Many /LPF Urine Bacteria Few /HPF (0-FEW) Glucose (Fingerstick) 98 mg/dL (70-99) VTE Prophylaxis Ordered VTE Prophylaxis Devices: No VTE Pharmacological Prophylaxi: Yes Assessment/Plan Assessment/Plan intractable back pain with radiculopathy, prior epidural injection, consult physiatry claustrophobia prevents MRI unless sedated ESRD, on PD, looks dry oliguria, anuria, with ESRD she an always still made urine and she is upset about this. acute on chronic pain, narcotic dependence, on MS contin at home s/p left ROMI GENAO MD Dec 03, 2017 09:20
[2017-12-03] MEDS ORDERED: ALBUTEROL SULFATE 2.5 MG/3 ML NEBU. NEB PRN (09:45)
[2017-12-03] MEDS ORDERED: CINACALCET HCL 30 MG TABLET PO SCH (10:00)
[2017-12-03 10:50] VITALS: BP 118/53
--- NOTE | 2017-12-03 10:59 | PDOC2 ---
CONSULT Date of Consult Date of Consult DATE: 12/03/17 TIME: 10:38 Reason for Consult Reason for Consult: ESRD Identification/Chief Complaint Chief Complaint Back pain and Thigh pain"I feel like my thighs are burning" Source Source: Chart review, Patient History of Present Illness Reason for Visit: Pt is a 52 year old CF ESRD has been on HD for 31/2 years, recently switched to PD- approx 4 weeks back. She is admitted with acute on chronic back pain, thigh pain and burning sensation- states she feels her thighs are on fire and cannot bear to touch them . She states it all started on thursday. 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 Straight Cath in ER - no significant uop . Denies any symptoms of UTI She has been on APD - using 2.5 % based on the swelling in her Rt LE - its hard for her to weigh herself due to her prosthetics. She aslo used couple of 4.25% Now she is below her Dry weight (78kg) Denies any N/V/D. No CP/SOB. Good appetite . Hx of Shingles approx 18 months back Past Medical History Cardiovascular: CAD, HTN, [place], Hyperlipidemia, Aortic stenosis, Valve insufficiency, Other Pulmonary: Asthma, COPD, Pneumonia CENTRAL NERVOUS SYSTEM: Other GI: GERD, Other Heme/Onc: Anemia NOS Hepatobiliary: No pertinent hx Psych: No pertinent hx Rheumatologic: Fibromyalgia Infectious disease: Other Renal/: Chronic renal failure Endocrine: Diabetes, Hyperparathyroidism Past Surgical History Past Surgical History: CABG, Hysterectomy, Other Family History Family History: Diabetes, Hypertension Social History ALCOHOL: none Drugs: None, Other Lives: with Family Current Problem List Problem List Problems Medical Problems: (1) Anuria Status: Acute (2) Intractable back pain Status: Acute Current Medications Current Medications Current Medications Morphine Sulfate (Morphine Sulfate) 5 mg 1X ONCE IV Last administered on at 20:04; Start 12/02/17 at 20:00; Stop 12/02/17 at 20:01; Status DC Morphine Sulfate (Morphine Sulfate) 5 mg 1X ONCE IV Last administered on at 23:00; Start 12/02/17 at 22:30; Stop 12/02/17 at 22:31; Status DC Potassium Chloride (Klor-Con) 40 meq 1X ONCE PO Last administered on 12/02/17at 23:09; Start 12/02/17 at 22:45; Stop 12/02/17 at 22:46; Status DC Ondansetron HCl (Zofran) 4 mg PRN Q8HRS PRN IV NAUSEA/VOMITING Last administered on 12/03/17at 08:52; Start 12/02/17 at 22:45; Stop 12/03/17 at 22:44 Morphine Sulfate (Morphine Sulfate) 4 mg PRN Q2HR PRN IV PAIN Last administered on 12/03/17at 08:52; Start 12/02/17 at 22:45; Stop 12/03/17 at 09:15; Status DC Morphine Sulfate (Morphine Sulfate) 10 mg PRN Q2HR PRN IV PAIN; Start 12/03/17 at 09:15 Amiodarone HCl (Cordarone) 200 mg DAILY PO ; Start 12/03/17 at 10:00 Aspirin (Anthony Aspirin) 325 mg DAILY PO ; Start 12/03/17 at 10:00 Carvedilol (Coreg) 3.125 mg BIDWMEALS PO ; Start 12/03/17 at 10:00 Cinacalcet (Sensipar) 30 mg DAILY PO ; Start 12/03/17 at 10:00 Docusate Sodium (Colace) 100 mg PRN DAILY PRN PO CONSTIPATION; Start 12/03/17 at 09:15 Vitamin B Complex/ Vitamin C (Melly-Shabbir) 1 tab DAILY PO ; Start 12/03/17 at 10:00 Insulin Glargine (Lantus) 18 units QHS SQ ; Start 12/03/17 at 21:00 Morphine Sulfate (Ms Contin) 15 mg BID PO ; Start 12/03/17 at 10:00 Nitroglycerin (Nitrostat) 0.4 mg PRN Q5MIN PRN SL CHEST PAIN; Start 12/03/17 at 09:15 Nystatin (Nystop) 1 susanna PRN BID PRN TP SKIN BREAKDOWN; Start 12/03/17 at 09:15 Oxycodone/ Acetaminophen (Percocet 10/325) 1 tab PRN Q4HRS PRN PO PAIN; Start 12/03/17 at 12:00 Non-Formulary Medication (Albuterol Sulfate (Proventil Hfa Inhaler)) 2 puff BID PRN IH FOR ASTHMA; Start 12/03/17 at 09:15; Status UNV Atorvastatin Calcium (Lipitor) 80 mg QHS PO ; Start 12/03/17 at 21:00 Diltiazem HCl (Cardizem 24hr Cd) 120 mg DAILY PO ; Start 12/03/17 at 10:00 Erythromycin (E-Mycin) 250 mg BID PO ; Start 12/03/17 at 10:00 Fenofibrate (Lofibra) 134 mg QHS PO ; Start 12/03/17 at 21:00 Insulin Human Lispro (HumaLOG) 4 units TIDWMEALS SQ ; Start 12/03/17 at 12:00 Ondansetron HCl (Zofran Odt) 4 mg PRN Q6HRS PRN PO NAUSEA/VOMITING; Start at 09:45 Lidocaine (Lidoderm) 1 patch DAILY TD ; Start 12/03/17 at 10:00 Miscellaneous (Lidoderm Patch Removal) 1 ea QHS MC ; Start 12/03/17 at 21:00 Albuterol Sulfate (Ventolin Neb Soln) 2.5 mg PRN BID PRN NEB SHORTNESS OF BREATH; Start 12/03/17 at 09:45 Active Scripts Active Brilinta (Ticagrelor) 90 Mg Tablet 90 Mg PO BID 30 Days Percocet 10-325 Mg Tablet (Oxycodone/Acetaminophen) 1 Each Tablet 1 Tab PO Q4HRS Morphine Sulfate Er (Morphine Sulfate) 15 Mg Tablet.er 15 Mg PO BID Reported Sensipar (Cinacalcet Hcl) 30 Mg Tablet 1 Tab PO DAILY Lantus Solostar (Insulin Glargine,Hum.rec.anlog) 100 Unit/1 Ml Insuln.pen 18 Unit SQ QHS Cipro (Ciprofloxacin Hcl) 500 Mg Tablet 1 Tab PO BID Diflucan (Fluconazole) 100 Mg Tablet 100 Mg PO PRN Carvedilol 3.125 Mg Tablet 1 Tab PO BID Erythromycin (Erythromycin Base) 250 Mg Capsule.dr 250 Mg PO BID Cardizem Cd (Diltiazem Hcl) 180 Mg Cap.er.24h 120 Mg PO DAILY Amiodarone Hcl 200 Mg Tablet 1 Tab PO DAILY Ferric Citrate 210 Mg Tablet 210 Mg PO 3X/WEEK Nystatin 15 Gm Powder 1 Susanna TP PRN BID PRN Proventil Hfa Inhaler (Albuterol Sulfate) 6.7 Gm Hfa.aer.ad 2 Puff IH BID PRN Zofran (Ondansetron Hcl) 4 Mg Tablet 4 Mg PO Q6-8HRS PRN Nephro-Shabbir Tablet (Folic Acid/Vitamin B Comp W-C) 0.8 Mg Tablet 1 Tab PO DAILY Tramadol Hcl 50 Mg Tablet 50 Mg PO Q6H PRN Tricor (Fenofibrate Nanocrystallized) 145 Mg Tablet 1 Tab PO HS Lipitor (Atorvastatin Calcium) 80 Mg Tablet 80 Mg PO HS Niacin 500 Mg Tablet 500 Mg PO HS Novolog (Insulin Aspart) 100 Unit/1 Ml Cartridge 0 SQ TIDAC sliding scale Aspirin 325 Mg Tablet 325 Mg PO DAILY Furosemide 80 Mg Tablet 80 Mg PO BID Docusate Sodium 100 Mg Capsule 1 Cap PO PRN PRN Nitrostat (Nitroglycerin) 0.4 Mg Tab.subl 0.4 Mg SL PRN Q5MIN PRN Take as needed for chest pain Allergies Allergies: Coded Allergies: Sulfa (Sulfonamide Antibiotics) (Verified Allergy, Severe, Anaphylaxis, ) meropenem (Verified Allergy, Intermediate, Rash, 10/19/17) Tolerates ancef piperacillin (Verified Allergy, Intermediate, Rash, 10/19/17) Tolerates ancef strawberry (Verified Allergy, Intermediate, 10/19/17) tazobactam (Verified Allergy, Intermediate, 10/19/17) cefazolin (Verified Adverse Reaction, Intermediate, Itching, 10/19/17) Causes Vomiting fentanyl (Verified Adverse Reaction, Intermediate, Nausea and Vomiting, ) Vomiting ROS Review of System As per HPI Physical Exam Physical Exam General: NAD HEENT: OM moist neck Supple Lungs: Clear to auscultation, Non labored breathing Heart: S1S2, no gallops, no murmurs Extremities: Trace edema Rt Leg, Lt BKA, Skin: No rashes, No significant lesion Neuro: Grossly normal Psych/Mental Status: Mental status NL, Mood NL No Morales Vital Signs Vital Signs Date Time Temp Pulse Resp B/P (MAP) Pulse Ox O2 Delivery O2 Flow Rate FiO2 12/03/17 08:52 16 97 Room Air 12/03/17 03:00 98.7 80 124/61 (82) 98.7 Assessment & Plan ESRD - Has been on HD for 31/2 Yrs at Dialysis Unit TTS Switched to PD for last 4 weeks, using 2.5%, [id number] mls , 9 hrs, No LBF Refusing HD today (BUN higher), will do PD tonite as per her schedule, with 1.5 % as below her dry wt 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 Anuria- as per Pt US reported urine in Bladder She is refusing Morales , Straight cath last nite no uop DW Plan with patient, RN at bedside Labs Labs Laboratory Tests Test 12/02/17 19:45 12/02/17 21:30 12/03/17 04:20 12/03/17 08:41 White Blood Count 13.6 x10^3/uL (4.0-11.0) 12.1 x10^3/uL (4.0-11.0) Red Blood Count 3.67 x10^6/uL (3.50-5.40) 3.55 x10^6/uL (3.50-5.40) Hemoglobin 11.4 g/dL (12.0-15.5) 11.0 g/dL (12.0-15.5) Hematocrit 33.6 % (36.0-47.0) 32.5 % (36.0-47.0) Mean Corpuscular Volume 92 fL (79-100) 91 fL (79-100) Mean Corpuscular Hemoglobin 31 pg (25-35) 31 pg (25-35) Mean Corpuscular Hemoglobin Concent 34 g/dL (31-37) 34 g/dL (31-37) Red Cell Distribution Width 14.1 % (11.5-14.5) 13.8 % (11.5-14.5) Platelet Count 373 x10^3/uL (140-400) 353 x10^3/uL (140-400) Neutrophils (%) (Auto) 80 % (31-73) 76 % (31-73) Lymphocytes (%) (Auto) 9 % (24-48) 12 % (24-48) Monocytes (%) (Auto) 5 % (0-9) 6 % (0-9) Eosinophils (%) (Auto) 5 % (0-3) 6 % (0-3) Basophils (%) (Auto) 1 % (0-3) 1 % (0-3) Neutrophils # (Auto) 10.9 x10^3uL (1.8-7.7) 9.2 x10^3uL (1.8-7.7) Lymphocytes # (Auto) 1.2 x10^3/uL (1.0-4.8) 1.5 x10^3/uL (1.0-4.8) Monocytes # (Auto) 0.7 x10^3/uL (0.0-1.1) 0.7 x10^3/uL (0.0-1.1) Eosinophils # (Auto) 0.7 x10^3/uL (0.0-0.7) 0.7 x10^3/uL (0.0-0.7) Basophils # (Auto) 0.1 x10^3/uL (0.0-0.2) 0.1 x10^3/uL (0.0-0.2) Sodium Level 138 mmol/L (136-145) 138 mmol/L (136-145) Potassium Level 3.2 mmol/L (3.5-5.1) 3.5 mmol/L (3.5-5.1) Chloride Level 95 mmol/L (98-107) 96 mmol/L (98-107) Carbon Dioxide Level 23 mmol/L (21-32) 24 mmol/L (21-32) Anion Gap 20 (6-14) 18 (6-14) Blood Urea Nitrogen 94 mg/dL (7-20) 96 mg/dL (7-20) Creatinine 8.0 mg/dL (0.6-1.0) 8.1 mg/dL (0.6-1.0) Estimated GFR (Cockcroft-Gault) 5.3 5.2 BUN/Creatinine Ratio 12 (6-20) Glucose Level 98 mg/dL (70-99) 113 mg/dL (70-99) Calcium Level 7.0 mg/dL (8.5-10.1) 6.7 mg/dL (8.5-10.1) Total Bilirubin 0.4 mg/dL (0.2-1.0) Aspartate Amino Transf (AST/SGOT) 30 U/L (15-37) Alanine Aminotransferase (ALT/SGPT) 47 U/L (14-59) Alkaline Phosphatase 169 U/L (46-116) Total Protein 7.5 g/dL (6.4-8.2) Albumin 2.5 g/dL (3.4-5.0) Albumin/Globulin Ratio 0.5 (1.0-1.7) Urine Collection Type U cath Urine Color Yellow Urine Clarity Hazy Urine pH 6.0 Urine Specific Sherborn 1.020 Urine Protein >=300 mg/dL (NEG-TRACE) Urine Glucose (UA) Negative mg/dL (NEG) Urine Ketones (Stick) Negative mg/dL (NEG) Urine Blood Moderate (NEG) Urine Nitrite Negative (NEG) Urine Bilirubin Small (NEG) Urine Urobilinogen Dipstick 1.0 mg/dL (0.2 mg/dL) Urine Leukocyte Esterase Small (NEG) Urine RBC 1-2 /HPF (0-2) Urine WBC 1-4 /HPF (0-4) Urine Squamous Epithelial Cells Many /LPF Urine Bacteria Few /HPF (0-FEW) Glucose (Fingerstick) 98 mg/dL (70-99) Laboratory Tests Test 12/02/17 19:45 12/02/17 21:30 12/03/17 04:20 12/03/17 08:41 White Blood Count 13.6 x10^3/uL (4.0-11.0) 12.1 x10^3/uL (4.0-11.0) Red Blood Count 3.67 x10^6/uL (3.50-5.40) 3.55 x10^6/uL (3.50-5.40) Hemoglobin 11.4 g/dL (12.0-15.5) 11.0 g/dL (12.0-15.5) Hematocrit 33.6 % (36.0-47.0) 32.5 % (36.0-47.0) Mean Corpuscular Volume 92 fL (79-100) 91 fL (79-100) Mean Corpuscular Hemoglobin 31 pg (25-35) 31 pg (25-35) Mean Corpuscular Hemoglobin Concent 34 g/dL (31-37) 34 g/dL (31-37) Red Cell Distribution Width 14.1 % (11.5-14.5) 13.8 % (11.5-14.5) Platelet Count 373 x10^3/uL (140-400) 353 x10^3/uL (140-400) Neutrophils (%) (Auto) 80 % (31-73) 76 % (31-73) Lymphocytes (%) (Auto) 9 % (24-48) 12 % (24-48) Monocytes (%) (Auto) 5 % (0-9) 6 % (0-9) Eosinophils (%) (Auto) 5 % (0-3) 6 % (0-3) Basophils (%) (Auto) 1 % (0-3) 1 % (0-3) Neutrophils # (Auto) 10.9 x10^3uL (1.8-7.7) 9.2 x10^3uL (1.8-7.7) Lymphocytes # (Auto) 1.2 x10^3/uL (1.0-4.8) 1.5 x10^3/uL (1.0-4.8) Monocytes # (Auto) 0.7 x10^3/uL (0.0-1.1) 0.7 x10^3/uL (0.0-1.1) Eosinophils # (Auto) 0.7 x10^3/uL (0.0-0.7) 0.7 x10^3/uL (0.0-0.7) Basophils # (Auto) 0.1 x10^3/uL (0.0-0.2) 0.1 x10^3/uL (0.0-0.2) Sodium Level 138 mmol/L (136-145) 138 mmol/L (136-145) Potassium Level 3.2 mmol/L (3.5-5.1) 3.5 mmol/L (3.5-5.1) Chloride Level 95 mmol/L (98-107) 96 mmol/L (98-107) Carbon Dioxide Level 23 mmol/L (21-32) 24 mmol/L (21-32) Anion Gap 20 (6-14) 18 (6-14) Blood Urea Nitrogen 94 mg/dL (7-20) 96 mg/dL (7-20) Creatinine 8.0 mg/dL (0.6-1.0) 8.1 mg/dL (0.6-1.0) Estimated GFR (Cockcroft-Gault) 5.3 5.2 BUN/Creatinine Ratio 12 (6-20) Glucose Level 98 mg/dL (70-99) 113 mg/dL (70-99) Calcium Level 7.0 mg/dL (8.5-10.1) 6.7 mg/dL (8.5-10.1) Total Bilirubin 0.4 mg/dL (0.2-1.0) Aspartate Amino Transf (AST/SGOT) 30 U/L (15-37) Alanine Aminotransferase (ALT/SGPT) 47 U/L (14-59) Alkaline Phosphatase 169 U/L (46-116) Total Protein 7.5 g/dL (6.4-8.2) Albumin 2.5 g/dL (3.4-5.0) Albumin/Globulin Ratio 0.5 (1.0-1.7) Urine Collection Type U cath Urine Color Yellow Urine Clarity Hazy Urine pH 6.0 Urine Specific Sherborn 1.020 Urine Protein >=300 mg/dL (NEG-TRACE) Urine Glucose (UA) Negative mg/dL (NEG) Urine Ketones (Stick) Negative mg/dL (NEG) Urine Blood Moderate (NEG) Urine Nitrite Negative (NEG) Urine Bilirubin Small (NEG) Urine Urobilinogen Dipstick 1.0 mg/dL (0.2 mg/dL) Urine Leukocyte Esterase Small (NEG) Urine RBC 1-2 /HPF (0-2) Urine WBC 1-4 /HPF (0-4) Urine Squamous Epithelial Cells Many /LPF Urine Bacteria Few /HPF (0-FEW) Glucose (Fingerstick) 98 mg/dL (70-99) Review All relevant outside records, renal labs, imaging studies, telemetry/EKG's were reviewed. HEMANT SCHAEFER MD Dec 03, 2017 10:59
[2017-12-03] MEDS: LIDOCAINE (700MG/PATCH) PATCH. TD SCH (11:26)
[2017-12-03] MEDS: MORPHINE ER 15 MG TABLET.ER PO SCH ×2 (11:27→22:40)
[2017-12-03] MEDS: FOLIC/VIT B COMP W-C (RENAL) TABLET. PO SCH (11:27)
[2017-12-03] MEDS: ASPIRIN 325 MG TABLET PO SCH (11:28)
[2017-12-03] MEDS: CARVEDILOL 3.125 MG TABLET. PO SCH ×2 (11:28→17:07)
[2017-12-03] MEDS: AMIODARONE HCL 200 MG TABLET. PO SCH (11:29)
[2017-12-03] MEDS: ERYTHROMYCIN BASE 250 MG TABLET PO SCH ×2 (11:29→22:41)
[2017-12-03] MEDS: MORPHINE SULFATE 10 MG/ML VIAL. IV PRN ×4 (11:36→20:59)
[2017-12-03] MEDS: INSULIN LISPRO 300 UNITS/3 ML INSULN.PEN. SQ SCH ×2 (11:45→17:21)
[2017-12-03] MEDS ORDERED: oxyCODONE/APAP 10/325 1 TAB TABLET PO PRN (12:00)
[2017-12-03] MEDS ORDERED: methylPREDNISolone ACETATE 40 MG/ML VIAL. IM ONE (14:30)
[2017-12-03] MEDS ORDERED: BUPIVACAINE MPF 0.25% 10 ML VIAL. IJ ONE (14:30)
[2017-12-03 15:00] VITALS: BP 120/51
[2017-12-03] MEDS: PANTOPRAZOLE 40 MG TABLET.DR. PO SCH (15:08)
[2017-12-03] MEDS: carBAMazepine 200 MG TABLET PO SCH ×2 (15:08→22:40)
[2017-12-03] MEDS: methylPREDNISolone 4 MG TABLET. PO SCH ×4 (15:09→22:42)
[2017-12-03] MEDS: ONDANSETRON ODT 4 MG TAB.RAPDIS. PO PRN (17:06)
[2017-12-03] MEDS ORDERED: PROMETHAZINE 12.5 MG TABLET. PO PRN (18:45)
[2017-12-03 19:00] VITALS: BP 144/55
[2017-12-03 22:35] VITALS: BP 110/63
[2017-12-03] MEDS: FENOFIBRATE,MICRONIZED 134 MG CAPSULE PO SCH (22:39)
[2017-12-03] MEDS: ATORVASTATIN CALCIUM 40 MG TABLET. PO SCH (22:40)
[2017-12-03] MEDS: PATCH REMOVAL. MC SCH (22:42)
[2017-12-03] MEDS: INSULIN GLARGINE 300 UNITS/3 ML INSULN.PEN. SQ SCH (22:52)
--- NOTE | 2017-12-04 02:26 | CONS ---
DATE OF CONSULTATION: 12/03/2017 ATTENDING PHYSICIAN: Amanda Morales MD. The patient was seen at the request of Dr. Morales for rehab evaluation. HISTORY OF PRESENT ILLNESS: This is a 52-year-old female admitted with acute on chronic lower back pain with radiation to both lower extremities with associated burning sensation over lateral aspect of both thighs going on for the last few weeks. The patient also admits some recent fall and she feels like she is having some difficulty with being on peritoneal dialysis for the last 4 weeks, feels dry. The patient with known coronary artery disease, hypertension, myocardial infarction, hyperlipidemia, aortic stenosis, wall insufficiency, asthmatic bronchitis, chronic obstructive pulmonary disease, pneumonia, gastroesophageal reflux disease, anemia, chronic upper back pain, fibromyalgia, chronic renal failure, diabetes mellitus, hyperparathyroidism, coronary artery bypass graft, hysterectomy, left below-knee amputation and amputation of her right foot toes and she had open wound tip of right third toe being [facility]. The patient had family history of diabetes mellitus and hypertension. She does not get around that much. She usually gets around in a wheelchair, independent with transfers. ALLERGIES: SHE IS KNOWN ALLERGIC TO SULFA, CEFAZOLIN, FENTANYL, MEROPENEM, PIPERACILLIN, STRAWBERRY, TAZOBACTAM AND SHE HAD SWELLING OF THE LIPS TAKING GABAPENTIN AND LYRICA. SOCIAL HISTORY: The patient lives with her mother. PHYSICAL EXAMINATION: Today, revealed a middle-aged female. She is alert, oriented to time, place, person, circumstance and follows commands appropriately. Moves all 4 extremities voluntarily where she had 4+/5 grade muscle strength. Deep tendon reflexes are decreased overall with absent left ankle jerk. She had hyperesthesia to touch and pinprick sensation over lateral femoral cutaneous nerve distribution in both thighs, left side more than right side. She also had decreased sensory perception over right foot when compared to proximal aspects of her lower extremities. She had tenderness to palpation over sacroiliac joint area and trochanteric bursa bilaterally. Straight leg raising test is negative bilaterally. She had extensive soft tissue left below-knee stump. She is independent with bed mobility. I have not tested her transfers or ambulation skills at this time. ASSESSMENT: A middle-aged female with subacute lumbar sprain with probable associated degenerative disk disease of lumbar vertebrae and bilateral trochanteric bursitis and also meralgia paraesthetica both thighs. By the by, she had negative Tinel sign over lateral femoral cutaneous nerve over inguinal ligament area. The patient with diabetes mellitus with peripheral neuropathy, status post left below-knee amputation with extensive soft tissue at end of the stump; fibromyalgia with chronic upper back pain; chronic renal failure, on peritoneal dialysis right now; gastroesophageal reflux disease; anemia; hyperparathyroidism; coronary artery disease; hypertension; myocardial infarction; hyperlipidemia; aortic stenosis; wall insufficiency; asthmatic bronchitis; chronic obstructive pulmonary disease, status post coronary artery bypass graft. She also presents with meralgia paresthetica of both thighs. RECOMMENDATIONS: To try her on Tegretol to help with her dysesthesia of both thighs, to proceed with injecting painful left sacroiliac joint area and to consider injecting right sacroiliac joint area and trochanteric bursa on an as needed basis. To ask Physical Therapy and Occupational Therapy to see her. Dr. Morales, I appreciate asking me to participate in the care of this interesting patient. I will be glad to follow her with you as needed for her rehabilitation. KEMAR KERR MD DR: LITTLE/guillermo JOB#: [id number] / [id number]
[2017-12-04 02:50] VITALS: BP 117/66
[2017-12-04] MEDS: MORPHINE SULFATE 10 MG/ML VIAL. IV PRN ×2 (03:08→08:15)
[2017-12-04 07:00] VITALS: BP 132/60
[2017-12-04] MEDS: PANTOPRAZOLE 40 MG TABLET.DR. PO SCH (07:30)
[2017-12-04] MEDS: ONDANSETRON ODT 4 MG TAB.RAPDIS. PO PRN (07:50)
[2017-12-04] MEDS: INSULIN LISPRO 300 UNITS/3 ML INSULN.PEN. SQ SCH ×3 (07:53→17:08)
[2017-12-04] MEDS: ERYTHROMYCIN BASE 250 MG TABLET PO SCH ×2 (08:15→21:25)
[2017-12-04] MEDS: carBAMazepine 200 MG TABLET PO SCH ×2 (08:16→21:25)
[2017-12-04] MEDS: FOLIC/VIT B COMP W-C (RENAL) TABLET. PO SCH (08:16)
[2017-12-04] MEDS: ASPIRIN 325 MG TABLET PO SCH (08:16)
[2017-12-04] MEDS: MORPHINE ER 15 MG TABLET.ER PO SCH (08:17)
[2017-12-04] MEDS: methylPREDNISolone 4 MG TABLET. PO SCH ×3 (08:17→17:04)
[2017-12-04] MEDS: AMIODARONE HCL 200 MG TABLET. PO SCH (08:18)
[2017-12-04] MEDS: CARVEDILOL 3.125 MG TABLET. PO SCH ×2 (08:18→16:39)
[2017-12-04] MEDS: LIDOCAINE (700MG/PATCH) PATCH. TD SCH (08:19)
[2017-12-04] MEDS ORDERED: ONDANSETRON PF 4 MG/2 ML VIAL. IV PRN (08:45)
[2017-12-04] MEDS ORDERED: ACETAMINOPHEN 500 MG TABLET PO PRN (08:45)
--- NOTE | 2017-12-04 09:14 | PDOC ---
SUBJECTIVE ROS Had MRI today OBJECTIVE Vital Signs Vital Signs Date Time Temp Pulse Resp B/P (MAP) Pulse Ox O2 Delivery O2 Flow Rate FiO2 12/04/17 09:10 Room Air 12/04/17 08:18 73 132/60 12/04/17 07:00 97.7 18 95 97.7 I & 0 Intake and Output 12/04/17 07:00 Intake Total 1940 ml Balance 1940 ml Intake Oral 1940 ml PHYSICAL EXAM Physical Exam General: NAD HEENT: OM moist neck Supple Lungs: Clear to auscultation, Non labored breathing Heart: S1S2, no gallops, no murmurs Extremities: Trace edema Rt Leg, Lt BKA, Skin: No rashes, No significant lesion Neuro: Grossly normal Psych/Mental Status: Mental status NL, Mood NL No Morales DIAGNOSIS/ASSESSMENT Assessment & Plan ESRD - Has been on HD for 31/2 Yrs at Dialysis Unit TTS Switched to PD recently Continue today as Ordered (1.5%) PD fluid - No e/o peritonitis Back pain/Thigh pain-/ Neuropathy Primary following ? Anuria- as per Pt US reported urine in Bladder She is refused Morales , Straight cath in ER no uop DW Plan with patient, RN at bedside COMMENT/RELEVANT DATA Meds Current Medications Medications (Trade) Dose Ordered Sig/Martin Start Time Stop Time Status Last Admin Dose Admin Acetaminophen (Tylenol) 500 mg PRN Q6HRS PRN 12/04/17 08:45 Albuterol Sulfate (Ventolin Neb Soln) 2.5 mg PRN BID PRN 12/03/17 09:45 Amiodarone HCl (Cordarone) 200 mg DAILY 12/03/17 10:00 12/04/17 08:18 200 MG Aspirin (Anthony Aspirin) 325 mg DAILY 12/03/17 10:00 12/04/17 08:16 325 MG Atorvastatin Calcium (Lipitor) 80 mg QHS 12/03/17 21:00 12/03/17 22:40 80 MG Bupivacaine HCl (Sensorcaine-Mpf 0.25%) 10 ml 1X ONCE 12/03/17 14:30 12/03/17 14:31 DC 12/03/17 14:30 10 ML Carbamazepine (TEGretol) 200 mg BID 12/03/17 14:30 12/04/17 08:16 200 MG Carvedilol (Coreg) 3.125 mg BIDWMEALS 12/03/17 10:00 12/04/17 08:18 3.125 MG Cinacalcet (Sensipar) 30 mg DAILY 12/03/17 10:00 12/03/17 10:56 DC Diltiazem HCl (Cardizem 24hr Cd) 120 mg DAILY 12/03/17 10:00 12/04/17 08:16 120 MG Docusate Sodium (Colace) 100 mg PRN DAILY PRN 12/03/17 09:15 12/03/17 11:27 100 MG Erythromycin (E-Mycin) 250 mg BID 12/03/17 10:00 12/04/17 08:15 250 MG Fenofibrate (Lofibra) 134 mg QHS 12/03/17 21:00 12/03/17 22:39 134 MG Insulin Glargine (Lantus) 18 units QHS 12/03/17 21:00 12/03/17 22:52 9 UNITS Insulin Human Lispro (HumaLOG) 4 units TIDWMEALS 12/03/17 12:00 12/04/17 07:53 4 UNITS Lidocaine (Lidoderm) 1 patch DAILY 12/03/17 10:00 12/03/17 11:26 1 PATCH Lorazepam (Ativan) 2 mg 1X ONCE 12/04/17 08:00 12/04/17 08:01 DC 12/04/17 09:09 2 MG Methylprednisolone (Medrol) 4 mg DAILY 12/08/17 09:00 12/08/17 09:01 Methylprednisolone Acetate (DEPO-Medrol 40MG VIAL) 40 mg 1X ONCE 12/03/17 14:30 12/03/17 14:31 DC 12/03/17 14:30 40 MG Miscellaneous (Lidoderm Patch Removal) 1 ea QHS 12/03/17 21:00 12/03/17 22:42 1 EA Morphine Sulfate (Morphine Sulfate) 10 mg PRN Q2HR PRN 12/03/17 09:15 12/04/17 08:15 10 MG Morphine Sulfate (Ms Contin) 15 mg BID 12/03/17 10:00 12/04/17 08:17 15 MG Nitroglycerin (Nitrostat) 0.4 mg PRN Q5MIN PRN 12/03/17 09:15 Non-Formulary Medication (Albuterol Sulfate (Proventil Hfa Inhaler)) 2 puff BID PRN 12/03/17 09:15 UNV Nystatin (Nystop) 1 erich PRN BID PRN 12/03/17 09:15 Ondansetron HCl (Zofran Odt) 4 mg PRN Q6HRS PRN 12/03/17 09:45 12/04/17 07:50 4 MG Ondansetron HCl (Zofran) 4 mg PRN Q6HRS PRN 12/04/17 08:45 Oxycodone/ Acetaminophen (Percocet 10/) 1 tab PRN Q4HRS PRN 12/03/17 12:00 Pantoprazole Sodium (Protonix) 40 mg DAILYAC 12/03/17 14:30 12/03/17 15:08 40 MG Potassium Chloride (Klor-Con) 40 meq 1X ONCE 12/02/17 22:45 12/02/17 22:46 DC 12/02/17 23:09 40 MEQ Promethazine HCl (Phenergan) 25 mg PRN Q6HRS PRN 12/03/17 18:45 12/03/17 20:58 25 MG Vitamin B Complex/ Vitamin C (Melly-Shabbir) 1 tab DAILY 12/03/17 10:00 12/04/17 08:16 1 TAB Lab Laboratory Tests Test 12/03/17 11:36 12/03/17 17:12 12/03/17 20:23 12/04/17 07:29 Glucose (Fingerstick) 150 mg/dL (70-99) 152 mg/dL (70-99) 142 mg/dL (70-99) 230 mg/dL (70-99) Results All relevant outside records, renal labs, imaging studies, telemetry/EKG's were reviewed. HEMANT SCHAEFER MD Dec 04, 2017 09:14
--- NOTE | 2017-12-04 09:14 | PDOC ---
PROGRESS NOTES Subjective Subjective She admits continued back pain. Objective Objective Vital Signs Date Time Temp Pulse Resp B/P (MAP) Pulse Ox O2 Delivery O2 Flow Rate FiO2 12/04/17 09:10 Room Air 12/04/17 08:18 73 132/60 12/04/17 07:00 97.7 18 95 97.7 Intake and Output 12/04/17 07:00 Intake Total 1940 ml Balance 1940 ml Intake Oral 1940 ml Physical Exam Physical Exam She is sitting at edge of bed and does not seem to be in any distress but continues with tenderness to palpation over sacroiliac joints,trochanteric bursa and hyperesthesia ove lateral aspect of her thighs. Assessment Assessment Problems Medical Problems: (1) Anuria Status: Acute (2) Intractable back pain Status: Acute Plan Plan of Care To await mri scan of lumbar vertebrae and to consider lumbar epidural steroid injection in pain clinic if pain persists. Comment Review of Relevant I have reviewed the following items bert (where applicable) has been applied. Labs Laboratory Tests Test 12/02/17 19:45 12/02/17 21:30 12/03/17 04:20 12/03/17 08:41 White Blood Count 13.6 x10^3/uL (4.0-11.0) 12.1 x10^3/uL (4.0-11.0) Red Blood Count 3.67 x10^6/uL (3.50-5.40) 3.55 x10^6/uL (3.50-5.40) Hemoglobin 11.4 g/dL (12.0-15.5) 11.0 g/dL (12.0-15.5) Hematocrit 33.6 % (36.0-47.0) 32.5 % (36.0-47.0) Mean Corpuscular Volume 92 fL (79-100) 91 fL (79-100) Mean Corpuscular Hemoglobin 31 pg (25-35) 31 pg (25-35) Mean Corpuscular Hemoglobin Concent 34 g/dL (31-37) 34 g/dL (31-37) Red Cell Distribution Width 14.1 % (11.5-14.5) 13.8 % (11.5-14.5) Platelet Count 373 x10^3/uL (140-400) 353 x10^3/uL (140-400) Neutrophils (%) (Auto) 80 % (31-73) 76 % (31-73) Lymphocytes (%) (Auto) 9 % (24-48) 12 % (24-48) Monocytes (%) (Auto) 5 % (0-9) 6 % (0-9) Eosinophils (%) (Auto) 5 % (0-3) 6 % (0-3) Basophils (%) (Auto) 1 % (0-3) 1 % (0-3) Neutrophils # (Auto) 10.9 x10^3uL (1.8-7.7) 9.2 x10^3uL (1.8-7.7) Lymphocytes # (Auto) 1.2 x10^3/uL (1.0-4.8) 1.5 x10^3/uL (1.0-4.8) Monocytes # (Auto) 0.7 x10^3/uL (0.0-1.1) 0.7 x10^3/uL (0.0-1.1) Eosinophils # (Auto) 0.7 x10^3/uL (0.0-0.7) 0.7 x10^3/uL (0.0-0.7) Basophils # (Auto) 0.1 x10^3/uL (0.0-0.2) 0.1 x10^3/uL (0.0-0.2) Sodium Level 138 mmol/L (136-145) 138 mmol/L (136-145) Potassium Level 3.2 mmol/L (3.5-5.1) 3.5 mmol/L (3.5-5.1) Chloride Level 95 mmol/L (98-107) 96 mmol/L (98-107) Carbon Dioxide Level 23 mmol/L (21-32) 24 mmol/L (21-32) Anion Gap 20 (6-14) 18 (6-14) Blood Urea Nitrogen 94 mg/dL (7-20) 96 mg/dL (7-20) Creatinine 8.0 mg/dL (0.6-1.0) 8.1 mg/dL (0.6-1.0) Estimated GFR (Cockcroft-Gault) 5.3 5.2 BUN/Creatinine Ratio 12 (6-20) Glucose Level 98 mg/dL (70-99) 113 mg/dL (70-99) Calcium Level 7.0 mg/dL (8.5-10.1) 6.7 mg/dL (8.5-10.1) Total Bilirubin 0.4 mg/dL (0.2-1.0) Aspartate Amino Transf (AST/SGOT) 30 U/L (15-37) Alanine Aminotransferase (ALT/SGPT) 47 U/L (14-59) Alkaline Phosphatase 169 U/L (46-116) Total Protein 7.5 g/dL (6.4-8.2) Albumin 2.5 g/dL (3.4-5.0) Albumin/Globulin Ratio 0.5 (1.0-1.7) Urine Collection Type U cath Urine Color Yellow Urine Clarity Hazy Urine pH 6.0 Urine Specific [place] 1.020 Urine Protein >=300 mg/dL (NEG-TRACE) Urine Glucose (UA) Negative mg/dL (NEG) Urine Ketones (Stick) Negative mg/dL (NEG) Urine Blood Moderate (NEG) Urine Nitrite Negative (NEG) Urine Bilirubin Small (NEG) Urine Urobilinogen Dipstick 1.0 mg/dL (0.2 mg/dL) Urine Leukocyte Esterase Small (NEG) Urine RBC 1-2 /HPF (0-2) Urine WBC 1-4 /HPF (0-4) Urine Squamous Epithelial Cells Many /LPF Urine Bacteria Few /HPF (0-FEW) Glucose (Fingerstick) 98 mg/dL (70-99) Test 12/03/17 11:36 12/03/17 17:12 12/03/17 20:23 12/04/17 07:29 Glucose (Fingerstick) 150 mg/dL (70-99) 152 mg/dL (70-99) 142 mg/dL (70-99) 230 mg/dL (70-99) Laboratory Tests Test 12/03/17 11:36 12/03/17 17:12 12/03/17 20:23 12/04/17 07:29 Glucose (Fingerstick) 150 mg/dL (70-99) 152 mg/dL (70-99) 142 mg/dL (70-99) 230 mg/dL (70-99) Medications Current Medications Morphine Sulfate (Morphine Sulfate) 5 mg 1X ONCE IV Last administered on at 20:04; Start 12/02/17 at 20:00; Stop 12/02/17 at 20:01; Status DC Morphine Sulfate (Morphine Sulfate) 5 mg 1X ONCE IV Last administered on at 23:00; Start 12/02/17 at 22:30; Stop 12/02/17 at 22:31; Status DC Potassium Chloride (Klor-Con) 40 meq 1X ONCE PO Last administered on 12/02/17at 23:09; Start 12/02/17 at 22:45; Stop 12/02/17 at 22:46; Status DC Ondansetron HCl (Zofran) 4 mg PRN Q8HRS PRN IV NAUSEA/VOMITING Last administered on 12/03/17 08:52; Start 12/02/17 at 22:45; Stop 12/03/17 at 16:06; Status DC Morphine Sulfate (Morphine Sulfate) 4 mg PRN Q2HR PRN IV PAIN Last administered on 12/03/17 08:52; Start 12/02/17 at 22:45; Stop 12/03/17 at 09:15; Status DC Morphine Sulfate (Morphine Sulfate) 10 mg PRN Q2HR PRN IV PAIN Last administered on 12/04/17 08:15; Start 12/03/17 at 09:15 Amiodarone HCl (Cordarone) 200 mg DAILY PO Last administered on 12/04/17at 08:18 ; Start 12/03/17 at 10:00 Aspirin (Anthony Aspirin) 325 mg DAILY PO Last administered on 12/04/17 08:16; Start 12/03/17 at 10:00 Carvedilol (Coreg) 3.125 mg BIDWMEALS PO Last administered on 12/04/17at 08:18; Start 12/03/17 at 10:00 Cinacalcet (Sensipar) 30 mg DAILY PO ; Start 12/03/17 at 10:00; Stop 12/03/17 at 10:56; Status DC Docusate Sodium (Colace) 100 mg PRN DAILY PRN PO CONSTIPATION Last administered on 12/03/17at 11:27; Start 12/03/17 at 09:15 Vitamin B Complex/ Vitamin C (Melly-Shabbir) 1 tab DAILY PO Last administered on 08:16; Start 12/03/17 at 10:00 Insulin Glargine (Lantus) 18 units QHS SQ Last administered on 12/03/17 22:52; Start 12/03/17 at 21:00 Morphine Sulfate (Ms Contin) 15 mg BID PO Last administered on 12/04/17 08:17 ; Start 12/03/17 at 10:00 Nitroglycerin (Nitrostat) 0.4 mg PRN Q5MIN PRN SL CHEST PAIN; Start 12/03/17 at 09:15 Nystatin (Nystop) 1 susanna PRN BID PRN TP SKIN BREAKDOWN; Start 12/03/17 at 09:15 Oxycodone/ Acetaminophen (Percocet 10/325) 1 tab PRN Q4HRS PRN PO MODERATE - SEVERE PAIN; Start 12/03/17 at 12:00 Non-Formulary Medication (Albuterol Sulfate (Proventil Hfa Inhaler)) 2 puff BID PRN IH FOR ASTHMA; Start 12/03/17 at 09:15; Status UNV Atorvastatin Calcium (Lipitor) 80 mg QHS PO Last administered on 12/03/17 22:40 ; Start 12/03/17 at 21:00 Diltiazem HCl (Cardizem 24hr Cd) 120 mg DAILY PO Last administered on 08:16; Start 12/03/17 at 10:00 Erythromycin (E-Mycin) 250 mg BID PO Last administered on 12/04/17 08:15; Start 12/03/17 at 10:00 Fenofibrate (Lofibra) 134 mg QHS PO Last administered on 12/03/17 22:39; Start 12/03/17 at 21:00 Insulin Human Lispro (HumaLOG) 4 units TIDWMEALS SQ Last administered on 07:53; Start 12/03/17 at 12:00 Ondansetron HCl (Zofran Odt) 4 mg PRN Q6HRS PRN PO NAUSEA/VOMITING Last administered on 12/04/17 07:50; Start 12/03/17 at 09:45 Lidocaine (Lidoderm) 1 patch DAILY TD Last administered on 12/03/17 11:26; Start 12/03/17 at 10:00 Miscellaneous (Lidoderm Patch Removal) 1 ea QHS MC Last administered on at 22:42; Start 12/03/17 at 21:00 Albuterol Sulfate (Ventolin Neb Soln) 2.5 mg PRN BID PRN NEB SHORTNESS OF BREATH; Start 12/03/17 at 09:45 Methylprednisolone Acetate (DEPO-Medrol 40MG VIAL) 40 mg 1X ONCE IM Last administered on 12/03/17at 14:30; Start 12/03/17 at 14:30; Stop 12/03/17 at 14:31; Status DC Bupivacaine HCl (Sensorcaine-Mpf 0.25%) 10 ml 1X ONCE IJ Last administered on 12/03/17at 14:30; Start 12/03/17 at 14:30; Stop 12/03/17 at 14:31; Status DC Carbamazepine (TEGretol) 200 mg BID PO Last administered on 12/04/17at 08:16; Start 12/03/17 at 14:30 Pantoprazole Sodium (Protonix) 40 mg DAILYAC PO Last administered on 12/03/17at 15:08; Start 12/03/17 at 14:30 Methylprednisolone (Medrol) 8 mg BID PO Last administered on 12/03/17at 22:42; Start 12/03/17 at 14:30; Stop 12/03/17 at 21:01; Status DC Methylprednisolone (Medrol) 4 mg BIDPCLD PO Last administered on 12/03/17at 17:30 ; Start 12/03/17 at 16:00; Stop 12/03/17 at 17:31; Status DC Methylprednisolone (Medrol) 4 mg TIDPC PO Last administered on 12/04/17at 08:17 ; Start 12/04/17 at 08:30; Stop 12/04/17 at 17:31 Methylprednisolone (Medrol) 8 mg QHS PO ; Start 12/04/17 at 21:00; Stop at 21:01 Methylprednisolone (Medrol) 4 mg QIDAFTMEAL PO ; Start 12/05/17 at 09:00; Stop 12/05/17 at 21:01 Methylprednisolone (Medrol) 4 mg TID PO ; Start 12/06/17 at 09:00; Stop at 21:01 Methylprednisolone (Medrol) 4 mg BID PO ; Start 12/07/17 at 09:00; Stop at 21:01 Methylprednisolone (Medrol) 4 mg DAILY PO ; Start 12/08/17 at 09:00; Stop at 09:01 Promethazine HCl (Phenergan) 25 mg PRN Q6HRS PRN PO NAUSEA/VOMITING Last administered on 12/03/17at 20:58; Start 12/03/17 at 18:45 Lorazepam (Ativan) 2 mg 1X ONCE IV ; Start 12/03/17 at 18:45; Stop 12/03/17 at 18 :46; Status Cancel Lorazepam (Ativan) 2 mg 1X ONCE IV Last administered on 12/04/17at 09:09; Start 12/04/17 at 08:00; Stop 12/04/17 at 08:01; Status DC Acetaminophen (Tylenol) 500 mg PRN Q6HRS PRN PO MILD PAIN / TEMP; Start at 08:45 Ondansetron HCl (Zofran) 4 mg PRN Q6HRS PRN IV NAUSEA/VOMITING; Start 12/04/17 at 08:45 Active Scripts Active Brilinta (Ticagrelor) 90 Mg Tablet 90 Mg PO BID 30 Days Percocet 10-325 Mg Tablet (Oxycodone/Acetaminophen) 1 Each Tablet 1 Tab PO Q4HRS Morphine Sulfate Er (Morphine Sulfate) 15 Mg Tablet.er 15 Mg PO BID Reported Sensipar (Cinacalcet Hcl) 30 Mg Tablet 1 Tab PO DAILY Lantus Solostar (Insulin Glargine,Hum.rec.anlog) 100 Unit/1 Ml Insuln.pen 18 Unit SQ QHS Cipro (Ciprofloxacin Hcl) 500 Mg Tablet 1 Tab PO BID Diflucan (Fluconazole) 100 Mg Tablet 100 Mg PO PRN Carvedilol 3.125 Mg Tablet 1 Tab PO BID Erythromycin (Erythromycin Base) 250 Mg Capsule.dr 250 Mg PO BID Cardizem Cd (Diltiazem Hcl) 180 Mg Cap.er.24h 120 Mg PO DAILY Amiodarone Hcl 200 Mg Tablet 1 Tab PO DAILY Ferric Citrate 210 Mg Tablet 210 Mg PO 3X/WEEK Nystatin 15 Gm Powder 1 Susanna TP PRN BID PRN Proventil Hfa Inhaler (Albuterol Sulfate) 6.7 Gm Hfa.aer.ad 2 Puff IH BID PRN Zofran (Ondansetron Hcl) 4 Mg Tablet 4 Mg PO Q6-8HRS PRN Nephro-Shabbir Tablet (Folic Acid/Vitamin B Comp W-C) 0.8 Mg Tablet 1 Tab PO DAILY Tramadol Hcl 50 Mg Tablet 50 Mg PO Q6H PRN Tricor (Fenofibrate Nanocrystallized) 145 Mg Tablet 1 Tab PO HS Lipitor (Atorvastatin Calcium) 80 Mg Tablet 80 Mg PO HS Niacin 500 Mg Tablet 500 Mg PO HS Novolog (Insulin Aspart) 100 Unit/1 Ml Cartridge 0 SQ TIDAC sliding scale Aspirin 325 Mg Tablet 325 Mg PO DAILY Furosemide 80 Mg Tablet 80 Mg PO BID Docusate Sodium 100 Mg Capsule 1 Cap PO PRN PRN Nitrostat (Nitroglycerin) 0.4 Mg Tab.subl 0.4 Mg SL PRN Q5MIN PRN Take as needed for chest pain Vitals/I & O Vital Sign - Last 24 Hours 12/03/17 12/03/17 12/03/17 12/03/17 10:50 11:27 11:28 11:28 Temp 98.1 98.1 Pulse 79 79 79 Resp 20 16 B/P (MAP) 118/53 (74) 118/53 118/53 Pulse Ox 100 O2 Delivery Room Air Room Air 12/03/17 12/03/17 12/03/17 12/03/17 11:29 11:36 12:14 14:30 Pulse 79 Resp 16 18 B/P (MAP) 118/53 Pulse Ox 100 98 O2 Delivery Room Air Room Air Room Air 12/03/17 12/03/17 12/03/17 12/03/17 15:00 15:27 17:07 17:15 Temp 97.9 97.9 Pulse 80 80 Resp 20 16 18 B/P (MAP) 120/51 (74) 120/51 Pulse Ox 98 98 98 O2 Delivery Room Air Room Air 12/03/17 12/03/17 12/03/17 12/03/17 17:45 19:00 20:00 20:59 Temp 97.9 97.9 Pulse 77 Resp 18 19 17 B/P (MAP) 144/55 (84) Pulse Ox 96 96 96 O2 Delivery Room Air Room Air Room Air 12/03/17 12/03/17 12/04/17 12/04/17 22:35 22:40 02:40 02:50 Temp 98.3 98.1 98.3 98.1 Pulse 73 81 Resp 16 16 B/P (MAP) 110/63 (79) 117/66 (83) Pulse Ox 94 96 O2 Delivery Room Air Room Air Room Air Room Air 12/04/17 12/04/17 12/04/17 12/04/17 03:08 07:00 08:15 08:16 Temp 97.7 97.7 Pulse 73 73 Resp 18 B/P (MAP) 132/60 (84) 132/60 Pulse Ox 95 O2 Delivery Room Air Room Air Room Air 12/04/17 12/04/17 12/04/17 12/04/17 08:17 08:18 08:18 09:10 Pulse 73 73 B/P (MAP) 132/60 132/60 O2 Delivery Room Air Room Air Intake and Output 12/03/17 12/03/17 12/04/17 15:00 23:00 07:00 Intake Total 840 ml 300 ml 800 ml Balance 840 ml 300 ml 800 ml KEMAR KERR MD Dec 04, 2017 09:14
--- NOTE | 2017-12-04 10:06 | RAD ---
EXAMINATION: Magnetic resonance imaging (MRI) of the lumbar spine without contrast 12/04/2017 2:10 PM HISTORY: Low back pain with bilateral leg weakness. TECHNIQUE: Multiplanar multi-weighted MRI of the lumbar spine was performed without intravenous contrast using the standard lumbar spine protocol. Contrast information: None administered. COMPARISON: None available. FINDINGS: Alignment of the lumbar spine is normal. There is disc desiccation at L5-S1 with mild disc height loss. Vertebral body heights are maintained. Marrow signal intensity is normal in all sequences. The conus medullaris terminates at L1. Distal spinal cord signal intensity is normal in all sequences. There is minimal anterior marginal osteophytosis, most prominent at L5-S1. Annular fissure is identified at L5-S1. No suspicious retroperitoneal abnormality is visualized. Abdominal aorta is normal in caliber. Axial images are degraded by motion artifact. Visualized portions of the sacrum appear intact. L3-L4: Disc is normal in configuration. There is mild facet arthropathy. There is no neuroforaminal or spinal canal stenosis. L4-L5: Disc is normal in configuration. There is mild to moderate facet arthropathy. There is no significant neuroforaminal or spinal canal stenosis. L5-S1: There is a central disc protrusion. There is moderate facet arthropathy. There is mild bilateral neuroforaminal stenosis. No spinal canal stenosis. IMPRESSION: Mild degenerative changes of the lumbar spine as described in detail above. Electronically signed by: Madisyn Flores MD (12/04/2017 10:02 AM) [id number]
--- NOTE | 2017-12-04 10:42 | PDOC ---
PROGRESS NOTES Chief Complaint Chief Complaint intractable back pain with radiculopathy, prior epidural injection ESRD, previously on hemodialysis for 3-1/2 years, now PD Anemia of chronic disease Narcotic tolerant Encephalopathy secondary to narcotics SIRS, reactive leukocytosis History of Present Illness History of Present Illness So drowsy, but protecting airway Did receive Ativan etc. for an MRI today Physiatry has ordered MRI, physiatry on board for the back pain Discussed with RN She ambulates pretty good otherwise if she were awake Patient does PD throughout the night PLAN: ff up MRI Taper narcotics PD through the night care of patient Supportive care Vitals Vitals Vital Signs Date Time Temp Pulse Resp B/P (MAP) Pulse Ox O2 Delivery O2 Flow Rate FiO2 12/04/17 09:10 Room Air 12/04/17 08:18 73 132/60 12/04/17 07:00 97.7 18 95 97.7 Physical Exam General: Alert, Oriented X3, Cooperative, mild distress Lungs: Clear Extremities: No cyanosis, Other (2+ EDEMA TO RIGHT LEG, ) Skin: No rashes, No significant lesion Labs LABS Laboratory Tests Test 12/03/17 11:36 12/03/17 17:12 12/03/17 20:23 12/04/17 07:29 Glucose (Fingerstick) 150 mg/dL (70-99) 152 mg/dL (70-99) 142 mg/dL (70-99) 230 mg/dL (70-99) Review of Systems Review of Systems 2 drowsy to participate with ROS Assessment and Plan Assessmemt and Plan Problems Medical Problems: (1) Anuria Status: Acute (2) Intractable back pain Status: Acute Comment Review of Relevant I have reviewed the following items bert (where applicable) has been applied. Labs Laboratory Tests Test 12/02/17 19:45 12/02/17 21:30 12/03/17 04:20 12/03/17 08:41 White Blood Count 13.6 x10^3/uL (4.0-11.0) 12.1 x10^3/uL (4.0-11.0) Red Blood Count 3.67 x10^6/uL (3.50-5.40) 3.55 x10^6/uL (3.50-5.40) Hemoglobin 11.4 g/dL (12.0-15.5) 11.0 g/dL (12.0-15.5) Hematocrit 33.6 % (36.0-47.0) 32.5 % (36.0-47.0) Mean Corpuscular Volume 92 fL (79-100) 91 fL (79-100) Mean Corpuscular Hemoglobin 31 pg (25-35) 31 pg (25-35) Mean Corpuscular Hemoglobin Concent 34 g/dL (31-37) 34 g/dL (31-37) Red Cell Distribution Width 14.1 % (11.5-14.5) 13.8 % (11.5-14.5) Platelet Count 373 x10^3/uL (140-400) 353 x10^3/uL (140-400) Neutrophils (%) (Auto) 80 % (31-73) 76 % (31-73) Lymphocytes (%) (Auto) 9 % (24-48) 12 % (24-48) Monocytes (%) (Auto) 5 % (0-9) 6 % (0-9) Eosinophils (%) (Auto) 5 % (0-3) 6 % (0-3) Basophils (%) (Auto) 1 % (0-3) 1 % (0-3) Neutrophils # (Auto) 10.9 x10^3uL (1.8-7.7) 9.2 x10^3uL (1.8-7.7) Lymphocytes # (Auto) 1.2 x10^3/uL (1.0-4.8) 1.5 x10^3/uL (1.0-4.8) Monocytes # (Auto) 0.7 x10^3/uL (0.0-1.1) 0.7 x10^3/uL (0.0-1.1) Eosinophils # (Auto) 0.7 x10^3/uL (0.0-0.7) 0.7 x10^3/uL (0.0-0.7) Basophils # (Auto) 0.1 x10^3/uL (0.0-0.2) 0.1 x10^3/uL (0.0-0.2) Sodium Level 138 mmol/L (136-145) 138 mmol/L (136-145) Potassium Level 3.2 mmol/L (3.5-5.1) 3.5 mmol/L (3.5-5.1) Chloride Level 95 mmol/L (98-107) 96 mmol/L (98-107) Carbon Dioxide Level 23 mmol/L (21-32) 24 mmol/L (21-32) Anion Gap 20 (6-14) 18 (6-14) Blood Urea Nitrogen 94 mg/dL (7-20) 96 mg/dL (7-20) Creatinine 8.0 mg/dL (0.6-1.0) 8.1 mg/dL (0.6-1.0) Estimated GFR (Cockcroft-Gault) 5.3 5.2 BUN/Creatinine Ratio 12 (6-20) Glucose Level 98 mg/dL (70-99) 113 mg/dL (70-99) Calcium Level 7.0 mg/dL (8.5-10.1) 6.7 mg/dL (8.5-10.1) Total Bilirubin 0.4 mg/dL (0.2-1.0) Aspartate Amino Transf (AST/SGOT) 30 U/L (15-37) Alanine Aminotransferase (ALT/SGPT) 47 U/L (14-59) Alkaline Phosphatase 169 U/L (46-116) Total Protein 7.5 g/dL (6.4-8.2) Albumin 2.5 g/dL (3.4-5.0) Albumin/Globulin Ratio 0.5 (1.0-1.7) Urine Collection Type U cath Urine Color Yellow Urine Clarity Hazy Urine pH 6.0 Urine Specific [place] 1.020 Urine Protein >=300 mg/dL (NEG-TRACE) Urine Glucose (UA) Negative mg/dL (NEG) Urine Ketones (Stick) Negative mg/dL (NEG) Urine Blood Moderate (NEG) Urine Nitrite Negative (NEG) Urine Bilirubin Small (NEG) Urine Urobilinogen Dipstick 1.0 mg/dL (0.2 mg/dL) Urine Leukocyte Esterase Small (NEG) Urine RBC 1-2 /HPF (0-2) Urine WBC 1-4 /HPF (0-4) Urine Squamous Epithelial Cells Many /LPF Urine Bacteria Few /HPF (0-FEW) Glucose (Fingerstick) 98 mg/dL (70-99) Test 12/03/17 11:36 12/03/17 17:12 8/9/18 20:23 12/04/17 07:29 Glucose (Fingerstick) 150 mg/dL (70-99) 152 mg/dL (70-99) 142 mg/dL (70-99) 230 mg/dL (70-99) Laboratory Tests Test 12/03/17 11:36 12/03/17 17:12 12/03/17 20:23 12/04/17 07:29 Glucose (Fingerstick) 150 mg/dL (70-99) 152 mg/dL (70-99) 142 mg/dL (70-99) 230 mg/dL (70-99) Medications Current Medications Morphine Sulfate (Morphine Sulfate) 5 mg 1X ONCE IV Last administered on 20:04; Start 12/02/17 at 20:00; Stop 12/02/17 at 20:01; Status DC Morphine Sulfate (Morphine Sulfate) 5 mg 1X ONCE IV Last administered on 23:00; Start 12/02/17 at 22:30; Stop 12/02/17 at 22:31; Status DC Potassium Chloride (Klor-Con) 40 meq 1X ONCE PO Last administered on 12/02/17 23:09; Start 12/02/17 at 22:45; Stop 12/02/17 at 22:46; Status DC Ondansetron HCl (Zofran) 4 mg PRN Q8HRS PRN IV NAUSEA/VOMITING Last administered on 12/03/17 08:52; Start 12/02/17 at 22:45; Stop 12/03/17 at 16:06; Status DC Morphine Sulfate (Morphine Sulfate) 4 mg PRN Q2HR PRN IV PAIN Last administered on 12/03/17 08:52; Start 12/02/17 at 22:45; Stop 12/03/17 at 09:15; Status DC Morphine Sulfate (Morphine Sulfate) 10 mg PRN Q2HR PRN IV PAIN Last administered on 12/04/17 08:15; Start 12/03/17 at 09:15 Amiodarone HCl (Cordarone) 200 mg DAILY PO Last administered on 12/04/17 08:18 ; Start 12/03/17 at 10:00 Aspirin (Anthony Aspirin) 325 mg DAILY PO Last administered on 12/04/17 08:16; Start 12/03/17 at 10:00 Carvedilol (Coreg) 3.125 mg BIDWMEALS PO Last administered on 12/04/17at 08:18; Start 12/03/17 at 10:00 Cinacalcet (Sensipar) 30 mg DAILY PO ; Start 12/03/17 at 10:00; Stop 12/03/17 at 10:56; Status DC Docusate Sodium (Colace) 100 mg PRN DAILY PRN PO CONSTIPATION Last administered on 12/03/17at 11:27; Start 12/03/17 at 09:15 Vitamin B Complex/ Vitamin C (Melly-Shabbir) 1 tab DAILY PO Last administered on 08:16; Start 12/03/17 at 10:00 Insulin Glargine (Lantus) 18 units QHS SQ Last administered on 12/03/17at 22:52; Start 12/03/17 at 21:00 Morphine Sulfate (Ms Contin) 15 mg BID PO Last administered on 12/04/17at 08:17 ; Start 12/03/17 at 10:00 Nitroglycerin (Nitrostat) 0.4 mg PRN Q5MIN PRN SL CHEST PAIN; Start 12/03/17 at 09:15 Nystatin (Nystop) 1 susanna PRN BID PRN TP SKIN BREAKDOWN; Start 12/03/17 at 09:15 Oxycodone/ Acetaminophen (Percocet 10/325) 1 tab PRN Q4HRS PRN PO MODERATE - SEVERE PAIN; Start 12/03/17 at 12:00 Non-Formulary Medication (Albuterol Sulfate (Proventil Hfa Inhaler)) 2 puff BID PRN IH FOR ASTHMA; Start 12/03/17 at 09:15; Status UNV Atorvastatin Calcium (Lipitor) 80 mg QHS PO Last administered on 12/03/17at 22:40 ; Start 12/03/17 at 21:00 Diltiazem HCl (Cardizem 24hr Cd) 120 mg DAILY PO Last administered on at 08:16; Start 12/03/17 at 10:00 Erythromycin (E-Mycin) 250 mg BID PO Last administered on 12/04/17at 08:15; Start 12/03/17 at 10:00 Fenofibrate (Lofibra) 134 mg QHS PO Last administered on 12/03/17 22:39; Start 12/03/17 at 21:00 Insulin Human Lispro (HumaLOG) 4 units TIDWMEALS SQ Last administered on 07:53; Start 12/03/17 at 12:00 Ondansetron HCl (Zofran Odt) 4 mg PRN Q6HRS PRN PO NAUSEA/VOMITING Last administered on 12/04/17 07:50; Start 12/03/17 at 09:45 Lidocaine (Lidoderm) 1 patch DAILY TD Last administered on 12/03/17 11:26; Start 12/03/17 at 10:00 Miscellaneous (Lidoderm Patch Removal) 1 ea QHS MC Last administered on 22:42; Start 12/03/17 at 21:00 Albuterol Sulfate (Ventolin Neb Soln) 2.5 mg PRN BID PRN NEB SHORTNESS OF BREATH; Start 12/03/17 at 09:45 Methylprednisolone Acetate (DEPO-Medrol 40MG VIAL) 40 mg 1X ONCE IM Last administered on 12/03/17 14:30; Start 12/03/17 at 14:30; Stop 12/03/17 at 14:31; Status DC Bupivacaine HCl (Sensorcaine-Mpf 0.25%) 10 ml 1X ONCE IJ Last administered on 12/03/17 14:30; Start 12/03/17 at 14:30; Stop 12/03/17 at 14:31; Status DC Carbamazepine (TEGretol) 200 mg BID PO Last administered on 12/04/17 08:16; Start 12/03/17 at 14:30 Pantoprazole Sodium (Protonix) 40 mg DAILYAC PO Last administered on 12/03/17 15:08; Start 12/03/17 at 14:30 Methylprednisolone (Medrol) 8 mg BID PO Last administered on 12/03/17 22:42; Start 12/03/17 at 14:30; Stop 12/03/17 at 21:01; Status DC Methylprednisolone (Medrol) 4 mg BIDPCLD PO Last administered on 12/03/17 17:30 ; Start 12/03/17 at 16:00; Stop 12/03/17 at 17:31; Status DC Methylprednisolone (Medrol) 4 mg TIDPC PO Last administered on 12/04/17at 08:17 ; Start 12/04/17 at 08:30; Stop 12/04/17 at 17:31 Methylprednisolone (Medrol) 8 mg QHS PO ; Start 12/04/17 at 21:00; Stop at 21:01 Methylprednisolone (Medrol) 4 mg QIDAFTMEAL PO ; Start 12/05/17 at 09:00; Stop 12/05/17 at 21:01 Methylprednisolone (Medrol) 4 mg TID PO ; Start 12/06/17 at 09:00; Stop at 21:01 Methylprednisolone (Medrol) 4 mg BID PO ; Start 12/07/17 at 09:00; Stop at 21:01 Methylprednisolone (Medrol) 4 mg DAILY PO ; Start 12/08/17 at 09:00; Stop at 09:01 Promethazine HCl (Phenergan) 25 mg PRN Q6HRS PRN PO NAUSEA/VOMITING Last administered on 12/03/17at 20:58; Start 12/03/17 at 18:45 Lorazepam (Ativan) 2 mg 1X ONCE IV ; Start 12/03/17 at 18:45; Stop 12/03/17 at 18 :46; Status Cancel Lorazepam (Ativan) 2 mg 1X ONCE IV Last administered on 12/04/17at 09:09; Start 12/04/17 at 08:00; Stop 12/04/17 at 08:01; Status DC Acetaminophen (Tylenol) 500 mg PRN Q6HRS PRN PO MILD PAIN / TEMP; Start at 08:45 Ondansetron HCl (Zofran) 4 mg PRN Q6HRS PRN IV NAUSEA/VOMITING; Start 12/04/17 at 08:45 Active Scripts Active Brilinta (Ticagrelor) 90 Mg Tablet 90 Mg PO BID 30 Days Percocet 10-325 Mg Tablet (Oxycodone/Acetaminophen) 1 Each Tablet 1 Tab PO Q4HRS Morphine Sulfate Er (Morphine Sulfate) 15 Mg Tablet.er 15 Mg PO BID Reported Sensipar (Cinacalcet Hcl) 30 Mg Tablet 1 Tab PO DAILY Lantus Solostar (Insulin Glargine,Hum.rec.anlog) 100 Unit/1 Ml Insuln.pen 18 Unit SQ QHS Cipro (Ciprofloxacin Hcl) 500 Mg Tablet 1 Tab PO BID Diflucan (Fluconazole) 100 Mg Tablet 100 Mg PO PRN Carvedilol 3.125 Mg Tablet 1 Tab PO BID Erythromycin (Erythromycin Base) 250 Mg Capsule.dr 250 Mg PO BID Cardizem Cd (Diltiazem Hcl) 180 Mg Cap.er.24h 120 Mg PO DAILY Amiodarone Hcl 200 Mg Tablet 1 Tab PO DAILY Ferric Citrate 210 Mg Tablet 210 Mg PO 3X/WEEK Nystatin 15 Gm Powder 1 Susanna TP PRN BID PRN Proventil Hfa Inhaler (Albuterol Sulfate) 6.7 Gm Hfa.aer.ad 2 Puff IH BID PRN Zofran (Ondansetron Hcl) 4 Mg Tablet 4 Mg PO Q6-8HRS PRN Nephro-Shabbir Tablet (Folic Acid/Vitamin B Comp W-C) 0.8 Mg Tablet 1 Tab PO DAILY Tramadol Hcl 50 Mg Tablet 50 Mg PO Q6H PRN Tricor (Fenofibrate Nanocrystallized) 145 Mg Tablet 1 Tab PO HS Lipitor (Atorvastatin Calcium) 80 Mg Tablet 80 Mg PO HS Niacin 500 Mg Tablet 500 Mg PO HS Novolog (Insulin Aspart) 100 Unit/1 Ml Cartridge 0 SQ TIDAC sliding scale Aspirin 325 Mg Tablet 325 Mg PO DAILY Furosemide 80 Mg Tablet 80 Mg PO BID Docusate Sodium 100 Mg Capsule 1 Cap PO PRN PRN Nitrostat (Nitroglycerin) 0.4 Mg Tab.subl 0.4 Mg SL PRN Q5MIN PRN Take as needed for chest pain Vitals/I & O Vital Sign - Last 24 Hours 12/03/17 12/03/17 12/03/17 12/03/17 10:50 11:27 11:28 11:28 Temp 98.1 98.1 Pulse 79 79 79 Resp 20 16 B/P (MAP) 118/53 (74) 118/53 118/53 Pulse Ox 100 O2 Delivery Room Air Room Air 12/03/17 12/03/17 12/03/17 12/03/17 11:29 11:36 12:14 14:30 Pulse 79 Resp 16 18 B/P (MAP) 118/53 Pulse Ox 100 98 O2 Delivery Room Air Room Air Room Air 12/03/17 12/03/17 12/03/17 12/03/17 15:00 15:27 17:07 17:15 Temp 97.9 97.9 Pulse 80 80 Resp 20 16 18 B/P (MAP) 120/51 (74) 120/51 Pulse Ox 98 98 98 O2 Delivery Room Air Room Air 12/03/17 12/03/17 12/03/17 12/03/17 17:45 19:00 20:00 20:59 Temp 97.9 97.9 Pulse 77 Resp 18 19 17 B/P (MAP) 144/55 (84) Pulse Ox 96 96 96 O2 Delivery Room Air Room Air Room Air 12/03/17 12/03/17 12/04/17 12/04/17 22:35 22:40 02:40 02:50 Temp 98.3 98.1 98.3 98.1 Pulse 73 81 Resp 16 16 B/P (MAP) 110/63 (79) 117/66 (83) Pulse Ox 94 96 O2 Delivery Room Air Room Air Room Air Room Air 12/04/17 12/04/17 12/04/17 12/04/17 03:08 07:00 08:15 08:16 Temp 97.7 97.7 Pulse 73 73 Resp 18 B/P (MAP) 132/60 (84) 132/60 Pulse Ox 95 O2 Delivery Room Air Room Air Room Air 12/04/17 12/04/17 12/04/17 12/04/17 08:17 08:18 08:18 08:30 Pulse 73 73 B/P (MAP) 132/60 132/60 O2 Delivery Room Air Room Air 12/04/17 09:10 O2 Delivery Room Air Intake and Output 12/03/17 12/03/17 12/04/17 15:00 23:00 07:00 Intake Total 840 ml 300 ml 800 ml Balance 840 ml 300 ml 800 ml DAVID PINTO MD Dec 04, 2017 10:42
[2017-12-04 11:00] VITALS: BP 88/42
[2017-12-04 12:10] LABS: BF CLARITY CLEAR; BF COLOR COLORLESS; BF RBC COUNT 0 /cmm; BF SOURCE PERIT DIALYSATE
[2017-12-04 12:12] LABS: BF WBC COUNT 3 /cmm
[2017-12-04 15:00] VITALS: BP 93/48
[2017-12-04 15:33] LABS: KAPPA FREE 168.1 mg/L (3.3-19.4); KAPPA LAMBDA RATIO 1.76 (0.26-1.65); LAMBDA FREE 95.3 mg/L (5.7-26.3)
[2017-12-04] MEDS: GENTAMICIN 0.1% TOPICAL OINTMENT 15GM TUBE. TP SCH (18:28)
[2017-12-04 19:00] VITALS: BP 119/68
[2017-12-04] MEDS: PATCH REMOVAL. MC SCH (19:22)
[2017-12-04] MEDS: oxyCODONE/APAP 5/325 1 TAB TABLET PO PRN (19:23)
[2017-12-04] MEDS ORDERED: REGRANEX TD (20:02)
[2017-12-04] MEDS ORDERED: MORPHINE SULFATE 4 MG/ML VIAL. IV PRN (20:45)
[2017-12-04] MEDS ORDERED: methylPREDNISolone 4 MG TABLET. PO SCH (21:00)
[2017-12-04] MEDS: FENOFIBRATE,MICRONIZED 134 MG CAPSULE PO SCH (21:25)
[2017-12-04] MEDS: ATORVASTATIN CALCIUM 40 MG TABLET. PO SCH (21:25)
[2017-12-04] MEDS: MORPHINE SULFATE 2 MG/ML VIAL. IV PRN (21:29)
[2017-12-04] MEDS: INSULIN GLARGINE 300 UNITS/3 ML INSULN.PEN. SQ SCH (21:39)
[2017-12-04 23:00] VITALS: BP 119/60
[2017-12-05 03:00] VITALS: BP 123/65
[2017-12-05 05:46] LABS: CALCIUM 6.9 mg/dL (8.5-10.1); CREATININE 8.2 mg/dL (0.6-1.0); GFR 5.1; POTASSIUM 4.3 mmol/L (3.5-5.1)
[2017-12-05] MEDS: MORPHINE SULFATE 2 MG/ML VIAL. IV PRN ×2 (05:55→10:49)
[2017-12-05 06:14] LABS: BASO % 0 % (0-3); EOS % 0 % (0-3); HEMATOCRIT 30.1 % (36.0-47.0); HEMOGLOBIN 10.2 g/dL (12.0-15.5); LYMPH # 0.5 x10^3/uL (1.0-4.8); LYMPH % 4 % (24-48); MEAN CORPUSCULAR HEMOGLOBIN 31 pg (25-35); MEAN CORPUSCULAR HGB CONC 34 g/dL (31-37); MEAN CORPUSCULAR VOLUME 92 fL (79-100); MONO # 0.4 x10^3/uL (0.0-1.1); MONO % 4 % (0-9); NEUT # 10.7 x10^3uL (1.8-7.7); NEUT % 92 % (31-73); PLATELET COUNT 366 x10^3/uL (140-400); RED BLOOD COUNT 3.28 x10^6/uL (3.50-5.40); RED CELL DISTRIBUTION WIDTH 13.7 % (11.5-14.5); WHITE BLOOD COUNT 11.6 x10^3/uL (4.0-11.0)
[2017-12-05 07:00] VITALS: BP 111/58
[2017-12-05] MEDS: INSULIN LISPRO 300 UNITS/3 ML INSULN.PEN. SQ SCH ×2 (08:09→11:59)
[2017-12-05] MEDS: oxyCODONE/APAP 5/325 1 TAB TABLET PO PRN (08:10)
[2017-12-05] MEDS: AMIODARONE HCL 200 MG TABLET. PO SCH (08:32)
[2017-12-05] MEDS: FOLIC/VIT B COMP W-C (RENAL) TABLET. PO SCH (08:32)
[2017-12-05] MEDS: methylPREDNISolone 4 MG TABLET. PO SCH ×2 (08:33→13:00)
[2017-12-05] MEDS: ERYTHROMYCIN BASE 250 MG TABLET PO SCH (08:33)
[2017-12-05] MEDS: CARVEDILOL 3.125 MG TABLET. PO SCH (08:33)
[2017-12-05] MEDS: carBAMazepine 200 MG TABLET PO SCH (08:33)
[2017-12-05] MEDS: ASPIRIN 325 MG TABLET PO SCH (08:33)
[2017-12-05] MEDS: PANTOPRAZOLE 40 MG TABLET.DR. PO SCH (08:34)
[2017-12-05] MEDS: LIDOCAINE (700MG/PATCH) PATCH. TD SCH (08:38)
[2017-12-05] MEDS: GENTAMICIN 0.1% TOPICAL OINTMENT 15GM TUBE. TP SCH (09:00)
[2017-12-05] MEDS ORDERED: BECAPLERMIN TP SCH (09:00)
[2017-12-05 09:48] LABS: % BANDS 2 % (0-9); % LYMPHS 4 % (24-48); % MONOS 2 % (0-10); % SEGS 92 % (35-66); PLT ESTIMATE ADEQUATE (ADEQUATE)
--- NOTE | 2017-12-05 11:07 | PDOC ---
PROGRESS NOTES Subjective Subjective She admits continued low back and hip area pain and less burning sensation over her thighs. She feels comfortable to go home. Objective Objective Vital Signs Date Time Temp Pulse Resp B/P (MAP) Pulse Ox O2 Delivery O2 Flow Rate FiO2 12/05/17 10:49 20 93 Room Air 12/05/17 08:33 75 123/65 12/05/17 07:00 98.5 98.5 Intake and Output 12/05/17 07:00 Intake Total 460 ml Output Total 60 ml Balance 400 ml Intake Oral 460 ml Output Urine Total 60 ml Physical Exam Physical Exam She is alert and in no acute distress and she remains independent with her mobility and self care at wheel chair level. She continues with tenderness to palpation over sacroiliac joints and trochanteric bursa bilaterally. She had multi level DDD as for mri scan with some central disc herniation at L5-S1 level. Assessment Assessment Problems Medical Problems: (1) Anuria Status: Acute (2) Intractable back pain Status: Acute Plan Plan of Detention with out patient follow up when medically stable. Comment Review of Relevant I have reviewed the following items bert (where applicable) has been applied. Labs Laboratory Tests Test 12/03/17 11:36 12/03/17 11:45 12/03/17 17:12 12/03/17 20:23 Glucose (Fingerstick) 150 mg/dL (70-99) 152 mg/dL (70-99) 142 mg/dL (70-99) Immunoglobulin [place]/Lambda Ratio 1.76 (0.26-1.65) Free [place] Light Chains 168.1 mg/L (3.3-19.4) Free [place] Light Chains 95.3 mg/L (5.7-26.3) Test 12/04/17 07:29 12/04/17 09:45 12/04/17 10:57 12/04/17 16:37 Glucose (Fingerstick) 230 mg/dL (70-99) 361 mg/dL (70-99) 309 mg/dL (70-99) Body Fluid Source Perit dialysate Body Fluid Color Colorless Body Fluid Clarity Clear Body Fluid Nucleated Cells 3 /cmm Body Fluid Mononuclear WBCs (%) % Body Fluid Polymorphonuclear Cells % Body Fluid Total RBCs Counted 0 /cmm Body Fluid Other Cells (%) % Test 12/04/17 21:15 12/05/17 04:13 12/05/17 07:29 Glucose (Fingerstick) 357 mg/dL (70-99) 377 mg/dL (70-99) White Blood Count 11.6 x10^3/uL (4.0-11.0) Red Blood Count 3.28 x10^6/uL (3.50-5.40) Hemoglobin 10.2 g/dL (12.0-15.5) Hematocrit 30.1 % (36.0-47.0) Mean Corpuscular Volume 92 fL (79-100) Mean Corpuscular Hemoglobin 31 pg (25-35) Mean Corpuscular Hemoglobin Concent 34 g/dL (31-37) Red Cell Distribution Width 13.7 % (11.5-14.5) Platelet Count 366 x10^3/uL (140-400) Neutrophils (%) (Auto) 92 % (31-73) Lymphocytes (%) (Auto) 4 % (24-48) Monocytes (%) (Auto) 4 % (0-9) Eosinophils (%) (Auto) 0 % (0-3) Basophils (%) (Auto) 0 % (0-3) Neutrophils # (Auto) 10.7 x10^3uL (1.8-7.7) Lymphocytes # (Auto) 0.5 x10^3/uL (1.0-4.8) Monocytes # (Auto) 0.4 x10^3/uL (0.0-1.1) Eosinophils # (Auto) 0.0 x10^3/uL (0.0-0.7) Basophils # (Auto) 0.0 x10^3/uL (0.0-0.2) Segmented Neutrophils % 92 % (35-66) Band Neutrophils % 2 % (0-9) Lymphocytes % 4 % (24-48) Monocytes % 2 % (0-10) Platelet Estimate Adequate (ADEQUATE) Sodium Level 131 mmol/L (136-145) Potassium Level 4.3 mmol/L (3.5-5.1) Chloride Level 91 mmol/L (98-107) Carbon Dioxide Level 21 mmol/L (21-32) Anion Gap 19 (6-14) Blood Urea Nitrogen 98 mg/dL (7-20) Creatinine 8.2 mg/dL (0.6-1.0) Estimated GFR (Cockcroft-Gault) 5.1 Glucose Level 432 mg/dL (70-99) Calcium Level 6.9 mg/dL (8.5-10.1) Laboratory Tests Test 12/04/17 16:37 12/04/17 21:15 12/05/17 04:13 12/05/17 07:29 Glucose (Fingerstick) 309 mg/dL (70-99) 357 mg/dL (70-99) 377 mg/dL (70-99) White Blood Count 11.6 x10^3/uL (4.0-11.0) Red Blood Count 3.28 x10^6/uL (3.50-5.40) Hemoglobin 10.2 g/dL (12.0-15.5) Hematocrit 30.1 % (36.0-47.0) Mean Corpuscular Volume 92 fL (79-100) Mean Corpuscular Hemoglobin 31 pg (25-35) Mean Corpuscular Hemoglobin Concent 34 g/dL (31-37) Red Cell Distribution Width 13.7 % (11.5-14.5) Platelet Count 366 x10^3/uL (140-400) Neutrophils (%) (Auto) 92 % (31-73) Lymphocytes (%) (Auto) 4 % (24-48) Monocytes (%) (Auto) 4 % (0-9) Eosinophils (%) (Auto) 0 % (0-3) Basophils (%) (Auto) 0 % (0-3) Neutrophils # (Auto) 10.7 x10^3uL (1.8-7.7) Lymphocytes # (Auto) 0.5 x10^3/uL (1.0-4.8) Monocytes # (Auto) 0.4 x10^3/uL (0.0-1.1) Eosinophils # (Auto) 0.0 x10^3/uL (0.0-0.7) Basophils # (Auto) 0.0 x10^3/uL (0.0-0.2) Segmented Neutrophils % 92 % (35-66) Band Neutrophils % 2 % (0-9) Lymphocytes % 4 % (24-48) Monocytes % 2 % (0-10) Platelet Estimate Adequate (ADEQUATE) Sodium Level 131 mmol/L (136-145) Potassium Level 4.3 mmol/L (3.5-5.1) Chloride Level 91 mmol/L (98-107) Carbon Dioxide Level 21 mmol/L (21-32) Anion Gap 19 (6-14) Blood Urea Nitrogen 98 mg/dL (7-20) Creatinine 8.2 mg/dL (0.6-1.0) Estimated GFR (Cockcroft-Gault) 5.1 Glucose Level 432 mg/dL (70-99) Calcium Level 6.9 mg/dL (8.5-10.1) Microbiology 12/04/17 Gram Stain - Final, Complete 12/02/17 Urine Culture - Final, Complete 12/02/17 Urine Culture Result 1 (ROSALIND) - Final, Complete Medications Current Medications Morphine Sulfate (Morphine Sulfate) 5 mg 1X ONCE IV Last administered on at 20:04; Start 12/02/17 at 20:00; Stop 12/02/17 at 20:01; Status DC Morphine Sulfate (Morphine Sulfate) 5 mg 1X ONCE IV Last administered on at 23:00; Start 12/02/17 at 22:30; Stop 12/02/17 at 22:31; Status DC Potassium Chloride (Klor-Con) 40 meq 1X ONCE PO Last administered on 12/02/17at 23:09; Start 12/02/17 at 22:45; Stop 12/02/17 at 22:46; Status DC Ondansetron HCl (Zofran) 4 mg PRN Q8HRS PRN IV NAUSEA/VOMITING Last administered on 12/03/17at 08:52; Start 12/02/17 at 22:45; Stop 12/03/17 at 16:06; Status DC Morphine Sulfate (Morphine Sulfate) 4 mg PRN Q2HR PRN IV PAIN Last administered on 12/03/17at 08:52; Start 12/02/17 at 22:45; Stop 12/03/17 at 09:15; Status DC Morphine Sulfate (Morphine Sulfate) 10 mg PRN Q2HR PRN IV PAIN Last administered on 12/04/17at 08:15; Start 12/03/17 at 09:15; Stop 12/04/17 at 20:39 ; Status DC Amiodarone HCl (Cordarone) 200 mg DAILY PO Last administered on 12/05/17at 08:32 ; Start 12/03/17 at 10:00 Aspirin (Anthony Aspirin) 325 mg DAILY PO Last administered on 12/05/17 08:33; Start 12/03/17 at 10:00 Carvedilol (Coreg) 3.125 mg BIDWMEALS PO Last administered on 12/05/17 08:33; Start 12/03/17 at 10:00 Cinacalcet (Sensipar) 30 mg DAILY PO ; Start 12/03/17 at 10:00; Stop 12/03/17 at 10:56; Status DC Docusate Sodium (Colace) 100 mg PRN DAILY PRN PO CONSTIPATION Last administered on 12/03/17 11:27; Start 12/03/17 at 09:15 Vitamin B Complex/ Vitamin C (Melly-Shabbir) 1 tab DAILY PO Last administered on 08:32; Start 12/03/17 at 10:00 Insulin Glargine (Lantus) 18 units QHS SQ Last administered on 12/04/17 21:39 ; Start 12/03/17 at 21:00 Morphine Sulfate (Ms Contin) 15 mg BID PO Last administered on 12/04/17 08:17 ; Start 12/03/17 at 10:00; Stop 12/04/17 at 10:43; Status DC Nitroglycerin (Nitrostat) 0.4 mg PRN Q5MIN PRN SL CHEST PAIN; Start 12/03/17 at 09:15 Nystatin (Nystop) 1 susanna PRN BID PRN TP SKIN BREAKDOWN; Start 12/03/17 at 09:15 Oxycodone/ Acetaminophen (Percocet 10/325) 1 tab PRN Q4HRS PRN PO MODERATE - SEVERE PAIN; Start 12/03/17 at 12:00; Stop 12/04/17 at 10:43; Status DC Non-Formulary Medication (Albuterol Sulfate (Proventil Hfa Inhaler)) 2 puff BID PRN IH FOR ASTHMA; Start 12/03/17 at 09:15; Status UNV Atorvastatin Calcium (Lipitor) 80 mg QHS PO Last administered on 12/04/17at 21: 25; Start 12/03/17 at 21:00 Diltiazem HCl (Cardizem 24hr Cd) 120 mg DAILY PO Last administered on 08:32; Start 12/03/17 at 10:00 Erythromycin (E-Mycin) 250 mg BID PO Last administered on 12/05/17 08:33; Start 12/03/17 at 10:00 Fenofibrate (Lofibra) 134 mg QHS PO Last administered on 12/04/17 21:25; Start 12/03/17 at 21:00 Insulin Human Lispro (HumaLOG) 4 units TIDWMEALS SQ Last administered on 08:09; Start 12/03/17 at 12:00 Ondansetron HCl (Zofran Odt) 4 mg PRN Q6HRS PRN PO NAUSEA/VOMITING Last administered on 12/04/17 07:50; Start 12/03/17 at 09:45 Lidocaine (Lidoderm) 1 patch DAILY TD Last administered on 12/03/17 11:26; Start 12/03/17 at 10:00 Miscellaneous (Lidoderm Patch Removal) 1 ea QHS MC Last administered on 22:42; Start 12/03/17 at 21:00 Albuterol Sulfate (Ventolin Neb Soln) 2.5 mg PRN BID PRN NEB SHORTNESS OF BREATH; Start 12/03/17 at 09:45 Methylprednisolone Acetate (DEPO-Medrol 40MG VIAL) 40 mg 1X ONCE IM Last administered on 12/03/17 14:30; Start 12/03/17 at 14:30; Stop 12/03/17 at 14:31; Status DC Bupivacaine HCl (Sensorcaine-Mpf 0.25%) 10 ml 1X ONCE IJ Last administered on 12/03/17 14:30; Start 12/03/17 at 14:30; Stop 12/03/17 at 14:31; Status DC Carbamazepine (TEGretol) 200 mg BID PO Last administered on 12/05/17 08:33; Start 12/03/17 at 14:30 Pantoprazole Sodium (Protonix) 40 mg DAILYAC PO Last administered on 12/05/17 08:34; Start 12/03/17 at 14:30 Methylprednisolone (Medrol) 8 mg BID PO Last administered on 12/03/17 22:42; Start 12/03/17 at 14:30; Stop 12/03/17 at 21:01; Status DC Methylprednisolone (Medrol) 4 mg BIDPCLD PO Last administered on 12/03/17at 17:30 ; Start 12/03/17 at 16:00; Stop 12/03/17 at 17:31; Status DC Methylprednisolone (Medrol) 4 mg TIDPC PO Last administered on 12/04/17at 17:04 ; Start 12/04/17 at 08:30; Stop 12/04/17 at 17:31; Status DC Methylprednisolone (Medrol) 8 mg QHS PO Last administered on 12/04/17at 21:25; Start 12/04/17 at 21:00; Stop 12/04/17 at 21:01; Status DC Methylprednisolone (Medrol) 4 mg QIDAFTMEAL PO Last administered on 12/05/17at 08:33; Start 12/05/17 at 09:00; Stop 12/05/17 at 21:01 Methylprednisolone (Medrol) 4 mg TID PO ; Start 12/06/17 at 09:00; Stop at 21:01 Methylprednisolone (Medrol) 4 mg BID PO ; Start 12/07/17 at 09:00; Stop at 21:01 Methylprednisolone (Medrol) 4 mg DAILY PO ; Start 12/08/17 at 09:00; Stop at 09:01 Promethazine HCl (Phenergan) 25 mg PRN Q6HRS PRN PO NAUSEA/VOMITING Last administered on 12/03/17at 20:58; Start 12/03/17 at 18:45 Lorazepam (Ativan) 2 mg 1X ONCE IV ; Start 12/03/17 at 18:45; Stop 12/03/17 at 18 :46; Status Cancel Lorazepam (Ativan) 2 mg 1X ONCE IV Last administered on 12/04/17at 09:09; Start 12/04/17 at 08:00; Stop 12/04/17 at 08:01; Status DC Acetaminophen (Tylenol) 500 mg PRN Q6HRS PRN PO MILD PAIN / TEMP; Start at 08:45 Ondansetron HCl (Zofran) 4 mg PRN Q6HRS PRN IV NAUSEA/VOMITING; Start 12/04/17 at 08:45 Oxycodone/ Acetaminophen (Percocet 5/325) 1 tab PRN Q4HRS PRN PO PAIN MODERATE TO SEVERE Last administered on 12/05/17at 08:10; Start 12/04/17 at 10:45 Gentamicin Sulfate (Garamycin) 1 susanna DAILY TP Last administered on 12/04/17at 18 :28; Start 12/04/17 at 18:00 Morphine Sulfate (Morphine Sulfate) 2 mg PRN Q4HRS PRN IV PAIN Last administered on 12/05/17at 10:49; Start 12/04/17 at 20:45 Morphine Sulfate (Morphine Sulfate) 4 mg PRN Q4HRS PRN IV PAIN; Start 12/04/17 at 20:45 Non-Formulary Medication 1 ea DAILY TP ; Start 12/05/17 at 09:00 Active Scripts Active Brilinta (Ticagrelor) 90 Mg Tablet 90 Mg PO BID 30 Days Percocet 10-325 Mg Tablet (Oxycodone/Acetaminophen) 1 Each Tablet 1 Tab PO Q4HRS Morphine Sulfate Er (Morphine Sulfate) 15 Mg Tablet.er 15 Mg PO BID Reported [regranex] 1 Susanna TD DAILY Sensipar (Cinacalcet Hcl) 30 Mg Tablet 1 Tab PO DAILY Lantus Solostar (Insulin Glargine,Hum.rec.anlog) 100 Unit/1 Ml Insuln.pen 18 Unit SQ QHS Cipro (Ciprofloxacin Hcl) 500 Mg Tablet 1 Tab PO BID Diflucan (Fluconazole) 100 Mg Tablet 100 Mg PO PRN Carvedilol 3.125 Mg Tablet 1 Tab PO BID Erythromycin (Erythromycin Base) 250 Mg Capsule.dr 250 Mg PO BID Cardizem Cd (Diltiazem Hcl) 180 Mg Cap.er.24h 120 Mg PO DAILY Amiodarone Hcl 200 Mg Tablet 1 Tab PO DAILY Ferric Citrate 210 Mg Tablet 210 Mg PO 3X/WEEK Nystatin 15 Gm Powder 1 Susanna TP PRN BID PRN Proventil Hfa Inhaler (Albuterol Sulfate) 6.7 Gm Hfa.aer.ad 2 Puff IH BID PRN Zofran (Ondansetron Hcl) 4 Mg Tablet 4 Mg PO Q6-8HRS PRN Nephro-Shabbir Tablet (Folic Acid/Vitamin B Comp W-C) 0.8 Mg Tablet 1 Tab PO DAILY Tramadol Hcl 50 Mg Tablet 50 Mg PO Q6H PRN Tricor (Fenofibrate Nanocrystallized) 145 Mg Tablet 1 Tab PO HS Lipitor (Atorvastatin Calcium) 80 Mg Tablet 80 Mg PO HS Niacin 500 Mg Tablet 500 Mg PO HS Novolog (Insulin Aspart) 100 Unit/1 Ml Cartridge 0 SQ TIDAC sliding scale Aspirin 325 Mg Tablet 325 Mg PO DAILY Furosemide 80 Mg Tablet 80 Mg PO BID Docusate Sodium 100 Mg Capsule 1 Cap PO PRN PRN Nitrostat (Nitroglycerin) 0.4 Mg Tab.subl 0.4 Mg SL PRN Q5MIN PRN Take as needed for chest pain Vitals/I & O Vital Sign - Last 24 Hours 12/04/17 12/04/17 12/04/17 12/04/17 12:24 15:00 16:39 19:00 Temp 96.6 97.9 96.6 97.9 Pulse 69 69 76 Resp 18 20 B/P (MAP) 93/48 (63) 93/48 119/68 (85) Pulse Ox 97 96 O2 Delivery Room Air Room Air 12/04/17 12/04/17 12/04/17 12/04/17 19:23 19:30 21:29 21:59 Resp 18 20 20 O2 Delivery Room Air Room Air Room Air Room Air 12/04/17 12/05/17 12/05/17 12/05/17 23:00 03:00 05:55 07:00 Temp 98.3 98.3 98.5 98.3 98.3 98.5 Pulse 70 75 80 Resp 20 20 20 20 B/P (MAP) 119/60 (79) 123/65 (84) 111/58 (75) Pulse Ox 93 95 98 O2 Delivery Room Air Room Air 12/05/17 12/05/17 12/05/17 12/05/17 08:00 08:10 08:32 08:32 Pulse 75 75 Resp 19 B/P (MAP) 123/65 123/65 Pulse Ox 94 O2 Delivery Room Air Room Air 12/05/17 12/05/17 12/05/17 08:33 09:15 10:49 Pulse 75 Resp 20 20 B/P (MAP) 123/65 Pulse Ox 93 93 O2 Delivery Room Air Room Air Intake and Output 12/04/17 12/04/17 12/05/17 15:00 23:00 07:00 Intake Total 220 ml 240 ml Output Total 60 ml 0 ml Balance -60 ml 220 ml 240 ml KEMAR KERR MD Dec 05, 2017 11:07
[2017-12-05 11:16] VITALS: BP 110/58
[2017-12-05] MEDS ORDERED: INSULIN LISPRO 300 UNITS/3 ML INSULN.PEN. SQ ONE (11:45)
[2017-12-05] MEDS ORDERED: OXYC-328 PO (11:52)
--- NOTE | 2017-12-05 11:56 | PDOC3 ---
Discharge Summary Visit Information Date of Admission: Dec 02, 2017 Date of Discharge: Dec 05, 2017 Admitting Diagnosis: back pain Final Diagnosis intractable back pain with radiculopathy, slipped disk w. DJD, DDD ESRD, previously on hemodialysis for 3-1/2 years, now PD Anemia of chronic disease Narcotic tolerant Encephalopathy secondary to narcotics SIRS, reactive leukocytosis Problems Medical Problems: (1) Anuria Status: Acute (2) Intractable back pain Status: Acute Brief Hospital Course Allergies Allergies Coded Allergies Type Severity Reaction Last Updated Verified Sulfa (Sulfonamide Antibiotics) Allergy Severe Anaphylaxis 10/19/17 Yes meropenem Allergy Intermediate Rash 10/19/17 Yes piperacillin Allergy Intermediate Rash 10/19/17 Yes strawberry Allergy Intermediate 10/19/17 Yes tazobactam Allergy Intermediate 10/19/17 Yes cefazolin Adverse Reaction Intermediate Itching 10/19/17 Yes fentanyl Adverse Reaction Intermediate Nausea and Vomiting 10/19/17 Yes Vital Signs Vital Signs Date Time Temp Pulse Resp B/P (MAP) Pulse Ox O2 Delivery O2 Flow Rate FiO2 12/05/17 11:16 98.4 82 20 110/58 (75) 97 Room Air 98.4 Lab Results Laboratory Tests Test 12/03/17 17:12 12/03/17 20:23 12/04/17 07:29 12/04/17 09:45 Glucose (Fingerstick) 152 mg/dL (70-99) 142 mg/dL (70-99) 230 mg/dL (70-99) Body Fluid Source Perit dialysate Body Fluid Color Colorless Body Fluid Clarity Clear Body Fluid Nucleated Cells 3 /cmm Body Fluid Mononuclear WBCs (%) % Body Fluid Polymorphonuclear Cells % Body Fluid Total RBCs Counted 0 /cmm Body Fluid Other Cells (%) % Test 12/04/17 10:57 12/04/17 16:37 12/04/17 21:15 12/05/17 04:13 Glucose (Fingerstick) 361 mg/dL (70-99) 309 mg/dL (70-99) 357 mg/dL (70-99) White Blood Count 11.6 x10^3/uL (4.0-11.0) Red Blood Count 3.28 x10^6/uL (3.50-5.40) Hemoglobin 10.2 g/dL (12.0-15.5) Hematocrit 30.1 % (36.0-47.0) Mean Corpuscular Volume 92 fL (79-100) Mean Corpuscular Hemoglobin 31 pg (25-35) Mean Corpuscular Hemoglobin Concent 34 g/dL (31-37) Red Cell Distribution Width 13.7 % (11.5-14.5) Platelet Count 366 x10^3/uL (140-400) Neutrophils (%) (Auto) 92 % (31-73) Lymphocytes (%) (Auto) 4 % (24-48) Monocytes (%) (Auto) 4 % (0-9) Eosinophils (%) (Auto) 0 % (0-3) Basophils (%) (Auto) 0 % (0-3) Neutrophils # (Auto) 10.7 x10^3uL (1.8-7.7) Lymphocytes # (Auto) 0.5 x10^3/uL (1.0-4.8) Monocytes # (Auto) 0.4 x10^3/uL (0.0-1.1) Eosinophils # (Auto) 0.0 x10^3/uL (0.0-0.7) Basophils # (Auto) 0.0 x10^3/uL (0.0-0.2) Segmented Neutrophils % 92 % (35-66) Band Neutrophils % 2 % (0-9) Lymphocytes % 4 % (24-48) Monocytes % 2 % (0-10) Platelet Estimate Adequate (ADEQUATE) Sodium Level 131 mmol/L (136-145) Potassium Level 4.3 mmol/L (3.5-5.1) Chloride Level 91 mmol/L (98-107) Carbon Dioxide Level 21 mmol/L (21-32) Anion Gap 19 (6-14) Blood Urea Nitrogen 98 mg/dL (7-20) Creatinine 8.2 mg/dL (0.6-1.0) Estimated GFR (Cockcroft-Gault) 5.1 Glucose Level 432 mg/dL (70-99) Calcium Level 6.9 mg/dL (8.5-10.1) Test 12/05/17 07:29 12/05/17 11:01 Glucose (Fingerstick) 377 mg/dL (70-99) 381 mg/dL (70-99) Laboratory Tests Test 12/04/17 16:37 12/04/17 21:15 12/05/17 04:13 12/05/17 07:29 Glucose (Fingerstick) 309 mg/dL (70-99) 357 mg/dL (70-99) 377 mg/dL (70-99) White Blood Count 11.6 x10^3/uL (4.0-11.0) Red Blood Count 3.28 x10^6/uL (3.50-5.40) Hemoglobin 10.2 g/dL (12.0-15.5) Hematocrit 30.1 % (36.0-47.0) Mean Corpuscular Volume 92 fL (79-100) Mean Corpuscular Hemoglobin 31 pg (25-35) Mean Corpuscular Hemoglobin Concent 34 g/dL (31-37) Red Cell Distribution Width 13.7 % (11.5-14.5) Platelet Count 366 x10^3/uL (140-400) Neutrophils (%) (Auto) 92 % (31-73) Lymphocytes (%) (Auto) 4 % (24-48) Monocytes (%) (Auto) 4 % (0-9) Eosinophils (%) (Auto) 0 % (0-3) Basophils (%) (Auto) 0 % (0-3) Neutrophils # (Auto) 10.7 x10^3uL (1.8-7.7) Lymphocytes # (Auto) 0.5 x10^3/uL (1.0-4.8) Monocytes # (Auto) 0.4 x10^3/uL (0.0-1.1) Eosinophils # (Auto) 0.0 x10^3/uL (0.0-0.7) Basophils # (Auto) 0.0 x10^3/uL (0.0-0.2) Segmented Neutrophils % 92 % (35-66) Band Neutrophils % 2 % (0-9) Lymphocytes % 4 % (24-48) Monocytes % 2 % (0-10) Platelet Estimate Adequate (ADEQUATE) Sodium Level 131 mmol/L (136-145) Potassium Level 4.3 mmol/L (3.5-5.1) Chloride Level 91 mmol/L (98-107) Carbon Dioxide Level 21 mmol/L (21-32) Anion Gap 19 (6-14) Blood Urea Nitrogen 98 mg/dL (7-20) Creatinine 8.2 mg/dL (0.6-1.0) Estimated GFR (Cockcroft-Gault) 5.1 Glucose Level 432 mg/dL (70-99) Calcium Level 6.9 mg/dL (8.5-10.1) Test 12/05/17 11:01 Glucose (Fingerstick) 381 mg/dL (70-99) Brief Hospital Course Ms. Rosenbaum is a 52 old admit with back pain, severe, could not walk, MRI showed lumbar disk problem, surg risk high, will rehab after rest, Physiatry consulted, will follow anuria s/p PD, cont PD Discharge Information Condition at Discharge: Improved Follow Up: Weeks Disposition/Orders: D/C to Home w/ HH Scheduled Amiodarone Hcl (Amiodarone Hcl) 200 Mg Tablet, 1 TAB PO DAILY, #90 Ref 1 ( Reported) Entered as Reported by: ADINA STRATTON on 06/08/17 1617 Last Action: Continued on 12/03/17915 by ROMI GOSS Aspirin (Aspirin) 325 Mg Tablet, 325 MG PO DAILY, (Reported) Entered as Reported by: KAMAR ROBIN on 12/05/14 1840 Last Action: Continued on 12/03/17915 by ROMI GOSS Atorvastatin Calcium (Lipitor) 80 Mg Tablet, 80 MG PO HS for FOR CHOLESTEROL, # 30 Ref 0 (Reported) Entered as Reported by: TEQUILA HAM on 12/06/14 0829 Last Action: Converted on 12/03/17915 by ROMI GOSS Carvedilol (Carvedilol) 3.125 Mg Tablet, 1 TAB PO BID, #60 Ref 3 (Reported) Entered as Reported by: AMBER STERN on 06/27/17 1400 Last Action: Continued on 12/03/17915 by ROMI GOSS Cinacalcet Hcl (Sensipar) 30 Mg Tablet, 1 TAB PO DAILY, #30 Ref 11 (Reported) Entered as Reported by: DANA VENCES on 12/02/17 2359 Last Action: Continued on 12/03/17915 by ROMI GOSS Ciprofloxacin Hcl (Cipro) 500 Mg Tablet, 1 TAB PO BID, #20 (Reported) Entered as Reported by: FLORY HOBSON on 10/19/17 0616 Last Action: HELD on 12/03/17915 by ROMI GOSS Diltiazem Hcl (Cardizem Cd) 180 Mg Cap.er.24h, 120 MG PO DAILY for FOR HYPERTENSION, #30 Ref 0 (Reported) Entered as Reported by: ADINA STRATTON on 06/08/17 1619 Last Action: Converted on 12/03/17915 by ROMI GOSS Erythromycin Base (Erythromycin) 250 Mg Capsule.dr, 250 MG PO BID, (Reported) Entered as Reported by: NILA GARCIA on 06/24/17 1527 Last Action: Converted on 12/03/17915 by ROMI GOSS Fenofibrate Nanocrystallized (Tricor) 145 Mg Tablet, 1 TAB PO HS, #30 Ref 5 ( Reported) Entered as Reported by: TEQUILA HAM on 12/06/14828 Last Action: Converted on 12/03/17915 by ROMI GOSS Ferric Citrate (Ferric Citrate) 210 Mg Tablet, 210 MG PO 3X/WEEK, (Reported) Entered as Reported by: DOMO COOK RPH on 06/06/17915 Last Action: HELD on 12/03/17915 by ROMI GOSS Fluconazole (Diflucan) 100 Mg Tablet, 100 MG PO PRN, (Reported) Entered as Reported by: BRYN YBARRA on 10/14/17 1607 Last Action: HELD on 12/03/17915 by ROMI GOSS Folic Acid/Vitamin B Comp W-C (Nephro-Shabbir Tablet) 0.8 Mg Tablet, 1 TAB PO DAILY , #30 Ref 5 (Reported) Entered as Reported by: MARIAH SAMUEL RN on 08/15/16 1450 Last Action: Continued on 12/03/17915 by ROIM GOSS Furosemide (Furosemide) 80 Mg Tablet, 80 MG PO BID, (Reported) Entered as Reported by: KAMAR ROBIN on 12/05/14 1840 Last Action: HELD on 12/03/17915 by ROMI GOSS Insulin Aspart (Novolog) 100 Unit/1 Ml Cartridge, 0 SQ TIDAC, (Reported) sliding scale Entered as Reported by: TEQUILA HAM on 12/06/14828 Last Action: Converted on 12/03/17915 by ROMI GOSS Insulin Glargine,Hum.rec.anlog (Lantus Solostar) 100 Unit/1 Ml Insuln.pen, 18 UNIT SQ QHS, #15 Ref 3 (Reported) Entered as Reported by: DANA VENCES on 12/02/172358 Last Action: Continued on 12/03/17915 by ROMI GOSS Morphine Sulfate (Morphine Sulfate Er) 15 Mg Tablet.er, 15 MG PO BID, #60 Prescribed by: ROMI GOSS on 01/09/16 1029 Last Action: Continued on 12/03/17915 by ROMI GOSS Niacin (Niacin) 500 Mg Tablet, 500 MG PO HS, (Reported) Entered as Reported by: TEQUILA HAM on 12/06/14 0829 Last Action: HELD on 12/03/17915 by ROMI GOSS Oxycodone/Apap 10-325 (Percocet 10-325 Mg Tablet) 1 Each Tablet, 1 TAB PO Q4HRS for PAIN, #40 Ref 0 Prescribed by: ROMI GOSS on 12/05/17 1152 Ticagrelor (Brilinta) 90 Mg Tablet, 90 MG PO BID for 30 Days, #60 Prescribed by: DAVID PINTO on 02/08/17 1338 Last Action: HELD on 12/03/17915 by ROMI GOSS [regranex] , 1 IRMA TD DAILY for Wound to right foot. , (Reported) Entered as Reported by: BRENNON BUSH on 12/04/172001 Last Action: New Order on 12/04/172001 by BRENNON BUSH Scheduled PRN Albuterol Sulfate (Proventil Hfa Inhaler) 6.7 Gm Hfa.aer.ad, 2 PUFF IH BID PRN for FOR ASTHMA, Ref 0 (Reported) Entered as Reported by: MU KOWALSKI on 02/04/172058 Last Action: Converted on 12/03/17915 by ROMI GOSS Docusate Sodium (Docusate Sodium) 100 Mg Capsule, 1 CAP PO PRN PRN for CONSTIPATION, #30 (Reported) Entered as Reported by: KAMAR ROBIN on 12/05/141839 Last Action: Continued on 12/03/17915 by ROMI GOSS Nitroglycerin (Nitrostat) 0.4 Mg Tab.subl, 0.4 MG SL PRN Q5MIN PRN for CHEST PAIN, (Reported) Take as needed for chest pain Entered as Reported by: KAMAR ROBIN on 12/05/141839 Last Action: Continued on 12/03/17915 by ROMI GOSS Nystatin (Nystatin) 15 Gm Powder, 1 IRMA TP PRN BID PRN for SKIN BREAKDOWN, #1 ( Reported) Entered as Reported by: MU KOWALSKI on 02/05/17 0307 Last Action: Continued on 12/03/17915 by ROMI GOSS Ondansetron Hcl (Zofran) 4 Mg Tablet, 4 MG PO Q6-8HRS PRN for NAUSEA/VOMITING, ( Reported) Entered as Reported by: JOSE ENRIQUE STRICKLAND on 10/08/162003 Last Action: Converted on 12/03/17915 by ROMI GOSS Tramadol Hcl (Tramadol Hcl) 50 Mg Tablet, 50 MG PO Q6H PRN for PAIN, (Reported) Entered as Reported by: BRAYDEN JOLLEY on 09/21/15 1010 Last Action: HELD on 12/03/17915 by ROMI GOSS Patient Instructions Patient Instructions PT and OT for lumbar pain and slipped disk Taper narcotics plan over time discussed PD through the night > 30 min face to face eval f/u kia Chaudhari IRA W MD Dec 05, 2017 11:56
[2017-12-05] MEDS ORDERED: METH4TAB2 PO (12:01)
[2017-12-05] MEDS ORDERED: LIDO700A39 TD (12:01)
--- NOTE | 2017-12-05 12:15 | PDOC ---
Renal-Progress Notes Subjective Notes Notes STILL HAS PAIN History of Present Illness Hx of present illness STABLE Vitals Vitals Vital Signs Date Time Temp Pulse Resp B/P (MAP) Pulse Ox O2 Delivery O2 Flow Rate FiO2 12/05/17 11:16 98.4 82 20 110/58 (75) 97 Room Air 98.4 Weight Weight [ ] I.O. Intake and Output Intake and Output 12/05/17 07:00 Intake Total 460 ml Output Total 60 ml Balance 400 ml Intake Oral 460 ml Output Urine Total 60 ml Labs Labs Laboratory Tests Test 12/04/17 16:37 12/04/17 21:15 12/05/17 04:13 12/05/17 07:29 Glucose (Fingerstick) 309 mg/dL (70-99) 357 mg/dL (70-99) 377 mg/dL (70-99) White Blood Count 11.6 x10^3/uL (4.0-11.0) Red Blood Count 3.28 x10^6/uL (3.50-5.40) Hemoglobin 10.2 g/dL (12.0-15.5) Hematocrit 30.1 % (36.0-47.0) Mean Corpuscular Volume 92 fL (79-100) Mean Corpuscular Hemoglobin 31 pg (25-35) Mean Corpuscular Hemoglobin Concent 34 g/dL (31-37) Red Cell Distribution Width 13.7 % (11.5-14.5) Platelet Count 366 x10^3/uL (140-400) Neutrophils (%) (Auto) 92 % (31-73) Lymphocytes (%) (Auto) 4 % (24-48) Monocytes (%) (Auto) 4 % (0-9) Eosinophils (%) (Auto) 0 % (0-3) Basophils (%) (Auto) 0 % (0-3) Neutrophils # (Auto) 10.7 x10^3uL (1.8-7.7) Lymphocytes # (Auto) 0.5 x10^3/uL (1.0-4.8) Monocytes # (Auto) 0.4 x10^3/uL (0.0-1.1) Eosinophils # (Auto) 0.0 x10^3/uL (0.0-0.7) Basophils # (Auto) 0.0 x10^3/uL (0.0-0.2) Segmented Neutrophils % 92 % (35-66) Band Neutrophils % 2 % (0-9) Lymphocytes % 4 % (24-48) Monocytes % 2 % (0-10) Platelet Estimate Adequate (ADEQUATE) Sodium Level 131 mmol/L (136-145) Potassium Level 4.3 mmol/L (3.5-5.1) Chloride Level 91 mmol/L (98-107) Carbon Dioxide Level 21 mmol/L (21-32) Anion Gap 19 (6-14) Blood Urea Nitrogen 98 mg/dL (7-20) Creatinine 8.2 mg/dL (0.6-1.0) Estimated GFR (Cockcroft-Gault) 5.1 Glucose Level 432 mg/dL (70-99) Calcium Level 6.9 mg/dL (8.5-10.1) Test 12/05/17 11:01 Glucose (Fingerstick) 381 mg/dL (70-99) Micro Micro Microbiology 12/04/17 Gram Stain - Final, Complete 12/02/17 Urine Culture - Final, Complete 12/02/17 Urine Culture Result 1 (ROSALIND) - Final, Complete Review of Systems Constitutional: yes: alert, oriented Ears/Nose/Throat: Yes: no symptom reported Eyes: Yes: no symptom reported Pulmonary: Yes no symptom reported Cardiovascular: Yes no symptom reported Gastrointestional: Yes: no symptom reported Genitourinary: Yes: no symptom reported Musculoskeletal: Yes: no symptom reported Skin: Yes no symptom reported Psychiatric/Neurological: Yes: no symptom reported Endocrine: Yes: no symptom reported Physical Exam General Appearance: no apparent distress Skin: warm Respiratory: bilateral CTA Heart: S1S2 Abdomen: soft, bowel sounds present Extremities: pulses present Neurology: alert Assessment Assessment IMP DM II HTN ANEMIA ESRD INTRACTABLE BACK PAIN PLAN SUPPORTIVE CARE CONT CCPD CHARLY ZAVALA MD Dec 05, 2017 12:15
[2017-12-06] MEDS ORDERED: methylPREDNISolone 4 MG TABLET. PO SCH (09:00)
[2017-12-07] MEDS ORDERED: methylPREDNISolone 4 MG TABLET. PO SCH (09:00)
[2017-12-07 21:10] LABS: ALBUM 2.6 g/dL (2.9-4.4); ALPHA 1 0.4 g/dL (0.0-0.4); ALPHA 2 1.1 g/dL (0.4-1.0); BETA 0.8 g/dL (0.7-1.3); GAMMA 0.8 g/dL (0.4-1.8); PROTEIN TOTAL 5.7 g/dL (6.0-8.5); SPEP AG RATIO 0.8 (0.7-1.7)
[2017-12-08] MEDS ORDERED: methylPREDNISolone 4 MG TABLET. PO SCH (09:00)
== END 2017-12-05 15:22 | disposition home health service (06) | DRG 551 ==
LOC: ER 19:06 → 5 SOUTH 22:36
PROVIDERS: ADMIT Internal Medicine; ATTEND Internal Medicine
DX: M51.16 Intervertebral disc disorders with radiculopathy, lumbar region (principal); N18.6 End stage renal disease; I21.9 Acute myocardial infarction, unspecified; G92 Toxic encephalopathy; I12.0 Hypertensive chronic kidney disease with stage 5 chronic kidney disease or end stage renal disease; J44.0 Chronic obstructive pulmonary disease with (acute) lower respiratory infection; F11.20 Opioid dependence, uncomplicated; R65.10 Systemic inflammatory response syndrome (SIRS) of non-infectious origin without acute organ dysfunction; M47.816 Spondylosis without myelopathy or radiculopathy, lumbar region; G89.29 Other chronic pain; R60.0 Localized edema; M54.5 Low back pain; I35.0 Nonrheumatic aortic (valve) stenosis; I25.10 Atherosclerotic heart disease of native coronary artery without angina pectoris; E78.5 Hyperlipidemia, unspecified; K21.9 Gastro-esophageal reflux disease without esophagitis; M79.7 Fibromyalgia; E21.3 Hyperparathyroidism, unspecified; E11.42 Type 2 diabetes mellitus with diabetic polyneuropathy; Z95.1 Presence of aortocoronary bypass graft; Z90.710 Acquired absence of both cervix and uterus; Z83.3 Family history of diabetes mellitus; Z82.49 Family history of ischemic heart disease and other diseases of the circulatory system; E11.22 Type 2 diabetes mellitus with diabetic chronic kidney disease; R34 Anuria and oliguria; Z89.512 Acquired absence of left leg below knee; Z99.2 Dependence on renal dialysis; D63.8 Anemia in other chronic diseases classified elsewhere; G57.10 Meralgia paresthetica, unspecified lower limb; I25.2 Old myocardial infarction; T40.605A Adverse effect of unspecified narcotics, initial encounter; D72.828 Other elevated white blood cell count; Z88.6 Allergy status to analgesic agent; Z88.0 Allergy status to penicillin; Z88.2 Allergy status to sulfonamides; Z88.8 Allergy status to other drugs, medicaments and biological substances; M70.62 Trochanteric bursitis, left hip; M70.61 Trochanteric bursitis, right hip
CPT/HCPCS: 36415; 72148; 74176; 76770; 80048; 80053; 81001; 82962; 83520; 84165; 85007; 85025; 87086; 87205; 89050; 94760; 96374; J1030; J1815; J2060; J2270; J2405; J3490; J7509; P9612; Q0162; Q0169; 99285-25

== ENCOUNTER → 2017-12-15 | Outpatient (CLI) | payer MEDICARE ==
[2017-12-05 11:16] VITALS: BP 110/58
[~2017-12-15] MED LIST changes: +CINA30TA2 PO; +LIDO700A39 TD; +METH4TAB2 PO; +REGRANEX TD
--- NOTE | 2017-12-15 21:35 | RAD ---
Ultrasound venous Doppler INDICATION:CALF SWELLING TECHNIQUE: Grayscale, color Doppler and spectral waveform ultrasound images of the right lower extremities deep veins obtained. COMPARISON: None FINDINGS: The interrogated deep veins are compressible and demonstrate evidence of blood flow with normal respiratory variation and response to augmentation. IMPRESSION: No sonographic evidence of acute DVT of the right lower extremity deep veins. Electronically signed by: Alex Ramos DO (12/15/2017 9:32 PM) [facility]
== END | disposition home or self-care (01) ==
LOC: US 15:51
PROVIDERS: ATTEND Internal Medicine Nephrology
DX: I82.4Z1 Acute embolism and thrombosis of unspecified deep veins of right distal lower extremity (principal); M79.89 Other specified soft tissue disorders; I13.2 Hypertensive heart and chronic kidney disease with heart failure and with stage 5 chronic kidney disease, or end stage renal disease; E11.22 Type 2 diabetes mellitus with diabetic chronic kidney disease; N18.6 End stage renal disease; I50.9 Heart failure, unspecified; I48.0 Paroxysmal atrial fibrillation; J45.909 Unspecified asthma, uncomplicated; I25.10 Atherosclerotic heart disease of native coronary artery without angina pectoris; I25.2 Old myocardial infarction; E78.5 Hyperlipidemia, unspecified; E78.00 Pure hypercholesterolemia, unspecified; F41.9 Anxiety disorder, unspecified; I73.9 Peripheral vascular disease, unspecified; D64.9 Anemia, unspecified; F32.9 Major depressive disorder, single episode, unspecified; M19.90 Unspecified osteoarthritis, unspecified site; J43.9 Emphysema, unspecified; Z83.3 Family history of diabetes mellitus; Z72.0 Tobacco use; Z88.2 Allergy status to sulfonamides; Z88.0 Allergy status to penicillin; Z88.1 Allergy status to other antibiotic agents; Z88.8 Allergy status to other drugs, medicaments and biological substances; Z88.5 Allergy status to narcotic agent; Z88.6 Allergy status to analgesic agent; Z79.4 Long term (current) use of insulin; Z79.891 Long term (current) use of opiate analgesic; Z79.82 Long term (current) use of aspirin; Z79.01 Long term (current) use of anticoagulants; Z79.2 Long term (current) use of antibiotics; Z82.49 Family history of ischemic heart disease and other diseases of the circulatory system; Z80.59 Family history of malignant neoplasm of other urinary tract organ; Z79.899 Other long term (current) drug therapy
CPT/HCPCS: 93971

== ENCOUNTER → 2017-12-18 | Outpatient (CLI) | payer MEDICARE ==
[2017-10-19 09:39] VITALS: BP_SYST 110
[2017-12-05 11:16] VITALS: BP_DIAS 58
[~2017-12-18] MED LIST changes: +CARB200T PO
== END | disposition home or self-care (01) ==
LOC: PMGWOUND 10:23
PROVIDERS: ATTEND Preventive Medicine Undersea and Hyperbaric Medicine
DX: E11.621 Type 2 diabetes mellitus with foot ulcer (principal); L97.512 Non-pressure chronic ulcer of other part of right foot with fat layer exposed; L97.411 Non-pressure chronic ulcer of right heel and midfoot limited to breakdown of skin; S80.811A Abrasion, right lower leg, initial encounter; I13.2 Hypertensive heart and chronic kidney disease with heart failure and with stage 5 chronic kidney disease, or end stage renal disease; E11.22 Type 2 diabetes mellitus with diabetic chronic kidney disease; N18.6 End stage renal disease; I50.33 Acute on chronic diastolic (congestive) heart failure; E11.52 Type 2 diabetes mellitus with diabetic peripheral angiopathy with gangrene; E11.43 Type 2 diabetes mellitus with diabetic autonomic (poly)neuropathy; E11.42 Type 2 diabetes mellitus with diabetic polyneuropathy; E11.69 Type 2 diabetes mellitus with other specified complication; M86.8X7 Other osteomyelitis, ankle and foot; M13.88 Other specified arthritis, other site; E78.4 Other hyperlipidemia; I48.0 Paroxysmal atrial fibrillation; K21.9 Gastro-esophageal reflux disease without esophagitis; I25.10 Atherosclerotic heart disease of native coronary artery without angina pectoris; J43.9 Emphysema, unspecified; I25.2 Old myocardial infarction; E78.00 Pure hypercholesterolemia, unspecified; E21.2 Other hyperparathyroidism; I73.9 Peripheral vascular disease, unspecified; G89.29 Other chronic pain; L84 Corns and callosities; F17.210 Nicotine dependence, cigarettes, uncomplicated; F41.9 Anxiety disorder, unspecified; F32.9 Major depressive disorder, single episode, unspecified; Z99.2 Dependence on renal dialysis; Z95.1 Presence of aortocoronary bypass graft; Z95.5 Presence of coronary angioplasty implant and graft; Z90.710 Acquired absence of both cervix and uterus; Z89.512 Acquired absence of left leg below knee; Z89.612 Acquired absence of left leg above knee; Z89.511 Acquired absence of right leg below knee; Z79.2 Long term (current) use of antibiotics; Z79.899 Other long term (current) drug therapy; Z79.4 Long term (current) use of insulin; Z79.01 Long term (current) use of anticoagulants; Z79.82 Long term (current) use of aspirin; Z79.891 Long term (current) use of opiate analgesic; Z86.718 Personal history of other venous thrombosis and embolism; Z88.6 Allergy status to analgesic agent; Z88.5 Allergy status to narcotic agent; Z88.1 Allergy status to other antibiotic agents; Z88.8 Allergy status to other drugs, medicaments and biological substances; Z88.2 Allergy status to sulfonamides; Z88.0 Allergy status to penicillin; X58.XXXA Exposure to other specified factors, initial encounter; Y93.89 Activity, other specified; Y92.89 Other specified places as the place of occurrence of the external cause; Y99.8 Other external cause status
CPT/HCPCS: 36415; 97597

== ENCOUNTER 2017-12-19 19:14 | Inpatient (IN) | payer MEDICARE ==
[~2017-12-19] VITALS: Ht 172.7 cm; Wt 78.5 kg
[~2017-12-19 19:14] MED LIST changes: -CARB200T PO
[2017-12-19 20:44] LABS: BASO # 0.1 x10^3/uL (0.0-0.2); BASO % 1 % (0-3); EOS # 0.4 x10^3/uL (0.0-0.7); EOS % 3 % (0-3); HEMATOCRIT 31.6 % (36.0-47.0); HEMOGLOBIN 10.6 g/dL (12.0-15.5); LYMPH # 0.8 x10^3/uL (1.0-4.8); LYMPH % 5 % (24-48); MEAN CORPUSCULAR HEMOGLOBIN 31 pg (25-35); MEAN CORPUSCULAR HGB CONC 34 g/dL (31-37); MEAN CORPUSCULAR VOLUME 91 fL (79-100); MONO # 1.1 x10^3/uL (0.0-1.1); MONO % 7 % (0-9); NEUT # 13.8 x10^3uL (1.8-7.7); NEUT % 85 % (31-73); PLATELET COUNT 388 x10^3/uL (140-400); RED BLOOD COUNT 3.47 x10^6/uL (3.50-5.40); RED CELL DISTRIBUTION WIDTH 13.8 % (11.5-14.5); WHITE BLOOD COUNT 16.3 x10^3/uL (4.0-11.0)
[2017-12-19] MEDS ORDERED: oxyCODONE/APAP 5/325 1 TAB TABLET PO ONE (20:45)
[2017-12-19 21:07] LABS: ALBUMIN 2.2 g/dL (3.4-5.0); ALBUMIN/GLOBULIN RATIO 0.5 (1.0-1.7); CREATININE 9.9 mg/dL (0.6-1.0); GFR 4.1; POTASSIUM 3.6 mmol/L (3.5-5.1); TOTAL BILIRUBIN 0.4 mg/dL (0.2-1.0); TOTAL PROTEIN 6.8 g/dL (6.4-8.2)
[2017-12-19 21:17] LABS: CALCIUM 5.7 mg/dL (8.5-10.1)
[2017-12-19 21:18] LABS: % BANDS 5 % (0-9); % BASOS 1 % (0-3); % EOS 3 % (0-5); % LYMPHS 3 % (24-48); % MONOS 8 % (0-10); % SEGS 80 % (35-66)
[2017-12-19 21:20] LABS: PLT ESTIMATE ADEQUATE (ADEQUATE)
[2017-12-19] MEDS ORDERED: CALCIUM GLUCONATE 1,000 MG/10 ML VIAL. IVP ONE (21:30)
--- NOTE | 2017-12-19 21:30 | PHYS DOC ---
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 The patient states that she has been doing peritoneal dialysis at home. 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 She states that she has also been very fatigued and has edema and cellulitis to her right lower leg. She is currently on oral antibiotic therapy to treat her cellulitis. Her left lower leg is a below the knee amputation. Review of Systems Review of Systems Constitutional: Denies fever or chills [] Eyes: Denies change in visual acuity, redness, or eye pain [] HENT: Denies nasal congestion or sore throat [] Respiratory: Denies cough or shortness of breath [] Cardiovascular: No additional information not addressed in HPI [] GI: Denies abdominal pain, nausea, vomiting, bloody stools or diarrhea [] : Denies dysuria or hematuria [] Musculoskeletal: Denies back pain or joint pain [] Integument: Denies rash or skin lesions [] Neurologic: Denies headache, focal weakness or sensory changes [] Endocrine: Denies polyuria or polydipsia [] All other systems were reviewed and found to be within normal limits, except as documented in this note. Current Medications Current Medications Current Medications Medications (Trade) Dose Ordered Sig/Martin Start Time Stop Time Status Last Admin Dose Admin Oxycodone/ Acetaminophen (Percocet 5/325) 1 tab 1X ONCE 12/19/17 20:45 12/19/17 20:46 DC 12/19/17 20:51 1 TAB Allergies Allergies Allergies Coded Allergies Type Severity Reaction Last Updated Verified Sulfa (Sulfonamide Antibiotics) Allergy Severe Anaphylaxis 10/19/17 Yes meropenem Allergy Intermediate Rash 10/19/17 Yes piperacillin Allergy Intermediate Rash 10/19/17 Yes strawberry Allergy Intermediate 10/19/17 Yes tazobactam Allergy Intermediate 10/19/17 Yes cefazolin Adverse Reaction Intermediate Itching 10/19/17 Yes fentanyl Adverse Reaction Intermediate Nausea and Vomiting 10/19/17 Yes Physical Exam Physical Exam Constitutional: Well developed, well nourished, no acute distress, non-toxic appearance. [] HENT: Normocephalic, atraumatic, bilateral external ears normal, oropharynx moist, no oral exudates, nose normal. [] Eyes: PERRLA, EOMI, conjunctiva normal, no discharge. [] Neck: Normal range of motion, no tenderness, supple, no stridor. [] Cardiovascular:Heart rate regular rhythm, no murmur [] Lungs & Thorax: Bilateral breath sounds clear to auscultation [] Abdomen: Bowel sounds normal, soft, mild mid lower quadrant tenderness, no masses, no pulsatile masses. [] Skin: Warm, dry, no erythema, no rash. [] Back: No tenderness, no CVA tenderness. [] Extremities: Right lower leg is erythematous with moderate edema, or some ulceration covered with bandage Neurologic: Alert and oriented X 3, normal motor function, normal sensory function, no focal deficits noted. [] Psychologic: Affect normal, judgement normal, mood normal. [] Current Patient Data Vital Signs Vital Signs Date Time Temp Pulse Resp B/P (MAP) Pulse Ox O2 Delivery O2 Flow Rate FiO2 12/19/17 21:11 84 20 149/67 (94) 95 12/19/17 20:51 Room Air 12/19/17 19:50 98.7 98.7 Lab Values Laboratory Tests Test 12/19/17 20:30 White Blood Count 16.3 x10^3/uL (4.0-11.0) H Red Blood Count 3.47 x10^6/uL (3.50-5.40) L Hemoglobin 10.6 g/dL (12.0-15.5) L Hematocrit 31.6 % (36.0-47.0) L Mean Corpuscular Volume 91 fL (79-100) Mean Corpuscular Hemoglobin 31 pg (25-35) Mean Corpuscular Hemoglobin Concent 34 g/dL (31-37) Red Cell Distribution Width 13.8 % (11.5-14.5) Platelet Count 388 x10^3/uL (140-400) Neutrophils (%) (Auto) 85 % (31-73) H Lymphocytes (%) (Auto) 5 % (24-48) L Monocytes (%) (Auto) 7 % (0-9) Eosinophils (%) (Auto) 3 % (0-3) Basophils (%) (Auto) 1 % (0-3) Neutrophils # (Auto) 13.8 x10^3uL (1.8-7.7) H Lymphocytes # (Auto) 0.8 x10^3/uL (1.0-4.8) L Monocytes # (Auto) 1.1 x10^3/uL (0.0-1.1) Eosinophils # (Auto) 0.4 x10^3/uL (0.0-0.7) Basophils # (Auto) 0.1 x10^3/uL (0.0-0.2) Segmented Neutrophils % 80 % (35-66) H Band Neutrophils % 5 % (0-9) Lymphocytes % 3 % (24-48) L Monocytes % 8 % (0-10) Eosinophils % 3 % (0-5) Basophils % 1 % (0-3) Platelet Estimate Adequate (ADEQUATE) Sodium Level 136 mmol/L (136-145) Potassium Level 3.6 mmol/L (3.5-5.1) Chloride Level 92 mmol/L (98-107) L Carbon Dioxide Level 26 mmol/L (21-32) Anion Gap 18 (6-14) H Blood Urea Nitrogen 91 mg/dL (7-20) H Creatinine 9.9 mg/dL (0.6-1.0) H Estimated GFR (Cockcroft-Gault) 4.1 BUN/Creatinine Ratio 9 (6-20) Glucose Level 273 mg/dL (70-99) H Lactic Acid Level 1.6 mmol/L (0.4-2.0) Calcium Level 5.7 mg/dL (8.5-10.1) *L Phosphorus Level 10.4 mg/dL (2.6-4.7) H Total Bilirubin 0.4 mg/dL (0.2-1.0) Aspartate Amino Transferase (AST) 15 U/L (15-37) Alanine Aminotransferase (ALT) 16 U/L (14-59) Alkaline Phosphatase 160 U/L (46-116) H Total Protein 6.8 g/dL (6.4-8.2) Albumin 2.2 g/dL (3.4-5.0) L Albumin/Globulin Ratio 0.5 (1.0-1.7) L Laboratory Tests 12/19/17 20:30 Laboratory Tests 12/19/17 20:30 EKG EKG [] Radiology/Procedures Radiology/Procedures [] Course & Med Decision Making Course & Med Decision Making Pertinent Labs and Imaging studies reviewed. (See chart for details) []The patient is being admitted to Dr. Delgadillo's service. Dr. Dexter has been consulted in the care of this patient. Dragon Disclaimer Dragon Disclaimer This electronic medical record was generated, in whole or in part, using a voice recognition dictation system. Departure Departure Impression: Primary Impression: End-stage renal disease on hemodialysis Additional Impression: Hypocalcemia Disposition: ADMITTED INPATIENT Admitting Physician: Xie. Pinto Condition: GOOD Referrals: MAGDA ARROYO MD (PCP) Problem Qualifiers LENNIE STEEN [employer] REPA[employer] SUPERVISOR Dec 19, 2017 21:30
[2017-12-19] MEDS ORDERED: ONDANSETRON PF 4 MG/2 ML VIAL. IV PRN (21:45)
[2017-12-19] MEDS ORDERED: fentaNYL PF VIAL 100 MCG/2 ML VIAL IV PRN (21:45)
[2017-12-19 23:15] VITALS: BP 168/56
[2017-12-19 23:30] VITALS: BP 159/86
[2017-12-19 23:45] VITALS: BP 152/61
[2017-12-20] VITALS (15 sets, daily range): BP systolic 117–158; BP diastolic 59–79
[2017-12-20] MEDS ORDERED: TRAM50TA PO (00:25)
[2017-12-20] MEDS ORDERED: traMADol 50 MG TABLET PO PRN ×2 (00:30→12:45)
[2017-12-20] MEDS ORDERED: ONDANSETRON ODT 4 MG TAB.RAPDIS. PO PRN (00:30)
[2017-12-20] MEDS ORDERED: NON FORMULARY ITEM (Albuterol Sulfate (Proventil Hfa Inhaler) 2 PUFF) IH PRN (00:30)
[2017-12-20] MEDS ORDERED: NITROGLYCERIN SUBLINGUAL 0.4 MG BOTTLE OF 25. SL PRN (00:30)
[2017-12-20] MEDS ORDERED: NYSTATIN TOPICAL POWDER 15GM BOTTLE. TP PRN (00:30)
[2017-12-20] MEDS ORDERED: FLUCONAZOLE 100 MG TABLET. PO PRN (00:30)
[2017-12-20] MEDS: MORPHINE SULFATE 2 MG/ML VIAL. IV PRN ×5 (00:39→23:38)
[2017-12-20] MEDS ORDERED: ALBUTEROL SULFATE 2.5 MG/3 ML NEBU. NEB PRN (02:45)
[2017-12-20] MEDS ORDERED: oxyCODONE/APAP 10/325 1 TAB TABLET PO SCH (04:00)
[2017-12-20 05:30] LABS: BASO # 0.1 x10^3/uL (0.0-0.2); BASO % 1 % (0-3); EOS # 0.5 x10^3/uL (0.0-0.7); EOS % 4 % (0-3); HEMATOCRIT 28.6 % (36.0-47.0); HEMOGLOBIN 9.6 g/dL (12.0-15.5); LYMPH # 1.1 x10^3/uL (1.0-4.8); LYMPH % 8 % (24-48); MEAN CORPUSCULAR HEMOGLOBIN 31 pg (25-35); MEAN CORPUSCULAR HGB CONC 34 g/dL (31-37); MEAN CORPUSCULAR VOLUME 92 fL (79-100); MONO # 1.1 x10^3/uL (0.0-1.1); MONO % 8 % (0-9); NEUT # 10.3 x10^3uL (1.8-7.7); NEUT % 79 % (31-73); PLATELET COUNT 352 x10^3/uL (140-400); RED BLOOD COUNT 3.13 x10^6/uL (3.50-5.40); RED CELL DISTRIBUTION WIDTH 13.4 % (11.5-14.5); WHITE BLOOD COUNT 13.2 x10^3/uL (4.0-11.0)
[2017-12-20 05:36] LABS: GFR 4.1; POTASSIUM 3.7 mmol/L (3.5-5.1)
[2017-12-20 05:42] LABS: CALCIUM 5.8 mg/dL (8.5-10.1)
[2017-12-20] MEDS ORDERED: CALCIUM GLUCONATE 1,000 MG/10 ML VIAL. IVP ONE (06:00)
[2017-12-20] MEDS ORDERED: CALCIUM GLUCONATE 1,000 MG in IV DEXTROSE 5% 100ML 100 ML IV ONE (06:15)
[2017-12-20] MEDS: oxyCODONE/APAP 10/325 1 TAB TABLET PO PRN ×3 (06:26→21:43)
[2017-12-20] MEDS ORDERED: CIPROFLOXACIN HCL 250 MG TABLET. PO SCH (07:00)
[2017-12-20] MEDS: LIDOCAINE (700MG/PATCH) PATCH. TD SCH (08:42)
[2017-12-20] MEDS: FUROSEMIDE 80 MG TABLET. PO SCH ×2 (08:43→16:47)
[2017-12-20] MEDS: CARVEDILOL 3.125 MG TABLET. PO SCH ×2 (08:43→16:47)
[2017-12-20] MEDS: TICAGRELOR 90 MG TABLET. PO SCH ×2 (08:43→21:41)
[2017-12-20] MEDS: FOLIC/VIT B COMP W-C (RENAL) TABLET. PO SCH (08:43)
[2017-12-20] MEDS: MORPHINE ER 15 MG TABLET.ER PO SCH ×2 (08:43→21:42)
[2017-12-20] MEDS: AMIODARONE HCL 200 MG TABLET. PO SCH (08:44)
[2017-12-20] MEDS: ERYTHROMYCIN BASE 250 MG TABLET PO SCH ×2 (08:44→21:44)
[2017-12-20] MEDS: APP TD SCH (08:44)
[2017-12-20] MEDS ORDERED: DEXTROSE 50% 25 GM / 50ML DISP.SYRIN. IV PRN (08:45)
[2017-12-20] MEDS: INSULIN LISPRO 300 UNITS/3 ML INSULN.PEN. SQ SCH ×4 (08:46→17:29)
[2017-12-20] MEDS ORDERED: CLINDAMYCIN HCL 150 MG CAPSULE. PO SCH (09:00)
--- NOTE | 2017-12-20 09:17 | PDOC2 ---
CONSULT Date of Consult Date of Consult DATE: 12/20/17 TIME: 09:16 Reason for Consult Reason for Consult: HypoCalcemia in ESRD setting Referring Physician Referring Physician: Ms Gautam Identification/Chief Complaint Chief Complaint Not feeling good, abn labs Source Source: Chart review, Patient History of Present Illness Reason for Visit: Deepali is a pleasant 52-year-old female who I care for her ESRD. She dialyzed at [facility] until recently, when she decided to transition to peritoneal dialysis. She has been trained on peritoneal dialysis and has been doing well since. When she was last seen in PD clinic, she was noted to have worsening edema of her right lower extremity and lower extremity Dopplers were ordered for her to rule out DVT. These were reportedly negative on . She however scraped her right lower extremity getting in and out of the car while she was home after her studies. She was seen by Dr. Solorio in wound care clinic and was prescribed clindamycin. She also feels that she has a UTI currently. She has noticed worsening erythema of her right lower extremity I was called by [facility] about a critically low calcium level that was noted on her weekly labs. On her last outpatient visit we had prescribed calcitriol for the patient, she has not received this yet. She has been taking her Tums with her meals as well as between meals to supplement her calcium levels but this appears to have continued to go down currently. When we called her, she said she was not feeling good and hence was asked to come to the ER where she is noted to have a calcium of 5.7. She denies tingling numbness or crampiness at this time. Past Medical History Cardiovascular: CAD, HTN, [place], Hyperlipidemia, Aortic stenosis, Valve insufficiency, Other Pulmonary: Asthma, COPD, Pneumonia CENTRAL NERVOUS SYSTEM: Other GI: GERD, Other Heme/Onc: Anemia NOS Hepatobiliary: No pertinent hx Psych: No pertinent hx Rheumatologic: Fibromyalgia Infectious disease: Other Renal/: Chronic renal failure Endocrine: Diabetes, Hyperparathyroidism Past Surgical History Past Surgical History: CABG, Hysterectomy, Other Family History Family History: Diabetes, Hypertension Social History Quit ALCOHOL: none Drugs: None, Other Lives: with Family Current Problem List Problem List Problems Medical Problems: (1) End-stage renal disease on hemodialysis Status: Acute (2) Hypocalcemia Status: Acute Current Medications Current Medications Current Medications Oxycodone/ Acetaminophen (Percocet 5/325) 1 tab 1X ONCE PO Last administered on 12/19/17at 20:51; Start 12/19/17 at 20:45; Stop 12/19/17 at 20:46; Status DC Calcium Gluconate (Calcium Gluconate) 1,000 mg 1X ONCE IVP Last administered on 12/19/17at 22:07; Start 12/19/17 at 21:30; Stop 12/19/17 at 21:31; Status DC Ondansetron HCl (Zofran) 4 mg PRN Q8HRS PRN IV NAUSEA/VOMITING; Start 12/19/17 at 21:45; Stop 12/20/17 at 21:44 Fentanyl Citrate (Fentanyl 2ml Vial) 50 mcg PRN Q2HR PRN IV PAIN; Start at 21:45; Stop 12/20/17 at 21:44 Morphine Sulfate (Morphine Sulfate) 2 mg PRN Q2HR PRN IV PAIN Last administered on 12/20/17at 06:26; Start 12/20/17 at 00:30 Amiodarone HCl (Cordarone) 200 mg DAILY PO Last administered on 12/20/17at 08:44 ; Start 12/20/17 at 09:00 Carvedilol (Coreg) 12.5 mg BIDWMEALS PO Last administered on 12/20/17at 08:43; Start 12/20/17 at 08:00 Vitamin B Complex/ Vitamin C (Melly-Shabbir) 1 tab DAILY PO Last administered on at 08:43; Start 12/20/17 at 09:00 Furosemide (Lasix) 80 mg [id number] PO Last administered on 12/20/17at 08:43; Start 12/20/17 at 09:00 Insulin Glargine (Lantus) 18 units QHS SQ ; Start 12/20/17 at 21:00 Morphine Sulfate (Ms Contin) 15 mg BID PO Last administered on 12/20/17at 08:43 ; Start 12/20/17 at 09:00 Nitroglycerin (Nitrostat) 0.4 mg PRN Q5MIN PRN SL CHEST PAIN; Start 12/20/17 at 00:30 Nystatin (Nystop) 1 susanna PRN BID PRN TP SKIN BREAKDOWN; Start 12/20/17 at 00:30 Oxycodone/ Acetaminophen (Percocet 10/325) 1 tab Q4HRS PO ; Start 12/20/17 at 04 :00; Status Cancel Ticagrelor (Brilinta) 90 mg BID PO Last administered on 12/20/17at 08:43; Start 12/20/17 at 09:00 Tramadol HCl (Ultram) 50 mg PRN Q4HRS PRN PO HEADACHE; Start 12/20/17 at 00:30 Non-Formulary Medication (Albuterol Sulfate (Proventil Hfa Inhaler)) 2 puff BID PRN IH FOR ASTHMA; Start 12/20/17 at 00:30; Status UNV Atorvastatin Calcium (Lipitor) 80 mg HS PO ; Start 12/20/17 at 21:00 Diltiazem HCl (Cardizem 24hr Cd) 120 mg DAILY PO Last administered on at 08:44; Start 12/20/17 at 09:00 Erythromycin (E-Mycin) 250 mg BID PO Last administered on 12/20/17at 08:44; Start 12/20/17 at 09:00 Fenofibrate (Lofibra) 134 mg HS PO ; Start 12/20/17 at 21:00 Non-Formulary Medication (Ferric Citrate ) 210 mg 3X/WEEK PO ; Start 12/21/17 at 09:00; Status UNV Fluconazole (Diflucan) 100 mg PRN DAILY PRN PO YEAST INFECTION; Start 12/20/17 at 00:30 Lidocaine (Lidoderm) 1 patch DAILY TD Last administered on 12/20/17at 08:42; Start 12/20/17 at 09:00 Niacin (Slo-Niacin) 500 mg QEVNG PO ; Start 12/20/17 at 18:00 Ondansetron HCl (Zofran Odt) 4 mg PRN Q6HRS PRN PO NAUSEA/VOMITING; Start 12/20 at 00:30 Non-Formulary Medication ([regranex] ) 1 susanna DAILY TD ; Start 12/20/17 at 09:00 ; Status UNV Ciprofloxacin (Cipro) 500 mg [id number] PO Last administered on 12/20/17at 06:21; Start 12/20/17 at 07:00 Clindamycin HCl (Cleocin) 150 mg TID PO Last administered on 12/20/17at 08:42; Start 12/20/17 at 09:00; Stop 12/20/17 at 09:08; Status DC Oxycodone/ Acetaminophen (Percocet 10/325) 1 tab PRN Q4HRS PRN PO PAIN Last administered on 12/20/17at 06:26; Start 12/20/17 at 02:00 Albuterol Sulfate (Ventolin Neb Soln) 2.5 mg PRN BID PRN NEB SHORTNESS OF BREATH; Start 12/20/17 at 02:45 Calcium Gluconate (Calcium Gluconate) 1,000 mg 1X ONCE IVP ; Start 12/20/17 at 06:00; Stop 12/20/17 at 06:01; Status UNV Calcium Gluconate 1000 mg/Dextrose 110 ml @ 220 mls/hr 1X ONCE IV Last administered on 12/20/17at 06:21; Start 12/20/17 at 06:15; Stop 12/20/17 at 06:44 ; Status DC Insulin Human Lispro (HumaLOG) 0-9 UNITS TIDWMEALS SQ ; Start 12/20/17 at 12:00 Dextrose (Dextrose 50%-Water Syringe) 12.5 gm PRN Q15MIN PRN IV SEE COMMENTS; Start 12/20/17 at 08:45 Insulin Human Lispro (HumaLOG) 10 units TIDAC SQ Last administered on at 08:46; Start 12/20/17 at 11:30 Linezolid (Zyvox) 600 mg BID PO ; Start 12/20/17 at 21:00; Status UNV Active Scripts Active Lidocaine 1 Each Adh..patch 1 Patch TD DAILY Percocet 10-325 Mg Tablet (Oxycodone/Acetaminophen) 1 Each Tablet 1 Tab PO Q4HRS Brilinta (Ticagrelor) 90 Mg Tablet 90 Mg PO BID 30 Days Morphine Sulfate Er (Morphine Sulfate) 15 Mg Tablet.er 15 Mg PO BID Reported Tramadol Hcl 50 Mg Tablet 50 Mg PO Q4HRS PRN [regranex] 1 Susanna TD DAILY Lantus Solostar (Insulin Glargine,Hum.rec.anlog) 100 Unit/1 Ml Insuln.pen 18 Unit SQ QHS Diflucan (Fluconazole) 100 Mg Tablet 100 Mg PO PRN Carvedilol 3.125 Mg Tablet 12.5 Mg PO BID Erythromycin (Erythromycin Base) 250 Mg Capsule.dr 250 Mg PO BID Cardizem Cd (Diltiazem Hcl) 180 Mg Cap.er.24h 120 Mg PO DAILY Amiodarone Hcl 200 Mg Tablet 1 Tab PO DAILY Ferric Citrate 210 Mg Tablet 210 Mg PO 3X/WEEK Nystatin 15 Gm Powder 1 Susanna TP PRN BID PRN Proventil Hfa Inhaler (Albuterol Sulfate) 6.7 Gm Hfa.aer.ad 2 Puff IH BID PRN Zofran (Ondansetron Hcl) 4 Mg Tablet 4 Mg PO Q6-8HRS PRN Nephro-Shabbir Tablet (Folic Acid/Vitamin B Comp W-C) 0.8 Mg Tablet 1 Tab PO DAILY Tricor (Fenofibrate Nanocrystallized) 145 Mg Tablet 1 Tab PO HS Lipitor (Atorvastatin Calcium) 80 Mg Tablet 80 Mg PO HS Niacin 500 Mg Tablet 500 Mg PO HS Novolog (Insulin Aspart) 100 Unit/1 Ml Cartridge 0 SQ TIDAC sliding scale Aspirin 325 Mg Tablet 325 Mg PO DAILY Furosemide 80 Mg Tablet 80 Mg PO BID Docusate Sodium 100 Mg Capsule 1 Cap PO PRN PRN Nitrostat (Nitroglycerin) 0.4 Mg Tab.subl 0.4 Mg SL PRN Q5MIN PRN Take as needed for chest pain Allergies Allergies: Coded Allergies: Sulfa (Sulfonamide Antibiotics) (Verified Allergy, Severe, Anaphylaxis, ) meropenem (Verified Allergy, Intermediate, Rash, 10/19/17) Tolerates ancef piperacillin (Verified Allergy, Intermediate, Rash, 10/19/17) Tolerates ancef strawberry (Verified Allergy, Intermediate, 10/19/17) tazobactam (Verified Allergy, Intermediate, 10/19/17) cefazolin (Verified Adverse Reaction, Intermediate, Itching, 10/19/17) Causes Vomiting fentanyl (Verified Adverse Reaction, Intermediate, Nausea and Vomiting, ) Vomiting ROS Review of System GEN: low grade Fevers no Chills EYES: no new Visual Complaints ENT: no EN Drainage no Hearing deficiets CVS: no Orthopnea no CP RESP: no SOB no SAVAGE GI: occ Nausea occ Vomiting : + Dysuria occ Urgency HEME: no easy bruising no Palp Ly Nodes NEURO no Focal Weakness no Sz PSYCH: no Suicidal Ideation no Depression SKIN: + Rt Lower ext erythematous Rash ENDO: no Polyuria or Polydipsia no Hot/Cold Intolerance MU SK: no Arthraigia ? Myalgia Physical Exam Physical Exam General Appearance: Awake Alert Oriented x 3 In no Distress; Animated Eyes: VIsion Unchanged Conjunctiva Normal EN: No EN Drainage Mucous Memb. moist Neck: no JVD no JVP Supple no Thyromegaly CVS: S1 S2 no Murmur No Gallop No Rub + Rt Lower ext Edema Resp: no Rales no Rhonchi no Acc. Muscle use GI: BAS +ve NO Bruit Non Tender Non Distended : no CVA tenderness; no Suprapubic Tenderness SKIN: no Rashes Breast Exam deferred Mu.Sk: Adequate ROM + Muscle Atrophy; Left BKA, Heme: Unable to palpate Obvious LAD no palp Splenomegaly NEURO: Good Strength and Tone Cranial Nerves II - XII grossly intact Psych: ? Depressed not Active hallucination Vital Signs Vital Signs Date Time Temp Pulse Resp B/P (MAP) Pulse Ox O2 Delivery O2 Flow Rate FiO2 12/20/17 08:44 88 145/64 12/20/17 08:43 Room Air 12/20/17 08:02 16 99 12/20/17 04:00 98.1 98.1 Assessment & Plan ESRD: Dialysis as below F 180 NR 3.0 Hrs 2 K 2.5 Ca 140 Na 35 HC03 Qb 350 + Qd 500+ Heparin 0 Units Uf 1 -2 Kgs or to dry weight as tolerated May give 25-50 gms of 25% Albumin if needed to maintain Hemodynamic stability Treatment plan reviewed and discussed with baseball inspector Hypocalcemia: We'll check PTH and vitamin D and start calcitriol if needed Anemia: Start Epogen Transfuse with next HD as needed. HTN: Relatively well controlled on Current BP meds as reviewed. no changes for now Severe hyperphosphatemia: I believe her dietary control and compliance with binders would be better while in the hospital. Possible UTI per patient complaints of dysuria and urgency. We'll check UA Right lower extremity cellulitis: Since patient will be getting antibiotics for the same, I will start fungal prophylaxis. ID Consult ? Uremia: It is unclear to me if patient is getting adequate dialysis with PD since she has just started. Some of her other symptoms could be attribute able to her cellulitis also. We'll however proceed with hemodialysis to ensure adequate toxin/solute removal Discussed Plan of Care and prognosis etc. at length with family. Labs Labs Laboratory Tests Test 12/19/17 20:30 12/20/17 05:05 12/20/17 08:42 White Blood Count 16.3 x10^3/uL (4.0-11.0) 13.2 x10^3/uL (4.0-11.0) Red Blood Count 3.47 x10^6/uL (3.50-5.40) 3.13 x10^6/uL (3.50-5.40) Hemoglobin 10.6 g/dL (12.0-15.5) 9.6 g/dL (12.0-15.5) Hematocrit 31.6 % (36.0-47.0) 28.6 % (36.0-47.0) Mean Corpuscular Volume 91 fL (79-100) 92 fL (79-100) Mean Corpuscular Hemoglobin 31 pg (25-35) 31 pg (25-35) Mean Corpuscular Hemoglobin Concent 34 g/dL (31-37) 34 g/dL (31-37) Red Cell Distribution Width 13.8 % (11.5-14.5) 13.4 % (11.5-14.5) Platelet Count 388 x10^3/uL (140-400) 352 x10^3/uL (140-400) Neutrophils (%) (Auto) 85 % (31-73) 79 % (31-73) Lymphocytes (%) (Auto) 5 % (24-48) 8 % (24-48) Monocytes (%) (Auto) 7 % (0-9) 8 % (0-9) Eosinophils (%) (Auto) 3 % (0-3) 4 % (0-3) Basophils (%) (Auto) 1 % (0-3) 1 % (0-3) Neutrophils # (Auto) 13.8 x10^3uL (1.8-7.7) 10.3 x10^3uL (1.8-7.7) Lymphocytes # (Auto) 0.8 x10^3/uL (1.0-4.8) 1.1 x10^3/uL (1.0-4.8) Monocytes # (Auto) 1.1 x10^3/uL (0.0-1.1) 1.1 x10^3/uL (0.0-1.1) Eosinophils # (Auto) 0.4 x10^3/uL (0.0-0.7) 0.5 x10^3/uL (0.0-0.7) Basophils # (Auto) 0.1 x10^3/uL (0.0-0.2) 0.1 x10^3/uL (0.0-0.2) Segmented Neutrophils % 80 % (35-66) Band Neutrophils % 5 % (0-9) Lymphocytes % 3 % (24-48) Monocytes % 8 % (0-10) Eosinophils % 3 % (0-5) Basophils % 1 % (0-3) Platelet Estimate Adequate (ADEQUATE) Sodium Level 136 mmol/L (136-145) 135 mmol/L (136-145) Potassium Level 3.6 mmol/L (3.5-5.1) 3.7 mmol/L (3.5-5.1) Chloride Level 92 mmol/L (98-107) 94 mmol/L (98-107) Carbon Dioxide Level 26 mmol/L (21-32) 25 mmol/L (21-32) Anion Gap 18 (6-14) 16 (6-14) Blood Urea Nitrogen 91 mg/dL (7-20) 98 mg/dL (7-20) Creatinine 9.9 mg/dL (0.6-1.0) 10.0 mg/dL (0.6-1.0) Estimated GFR (Cockcroft-Gault) 4.1 4.1 BUN/Creatinine Ratio 9 (6-20) Glucose Level 273 mg/dL (70-99) 187 mg/dL (70-99) Lactic Acid Level 1.6 mmol/L (0.4-2.0) Calcium Level 5.7 mg/dL (8.5-10.1) 5.8 mg/dL (8.5-10.1) Phosphorus Level 10.4 mg/dL (2.6-4.7) Total Bilirubin 0.4 mg/dL (0.2-1.0) Aspartate Amino Transf (AST/SGOT) 15 U/L (15-37) Alanine Aminotransferase (ALT/SGPT) 16 U/L (14-59) Alkaline Phosphatase 160 U/L (46-116) Total Protein 6.8 g/dL (6.4-8.2) Albumin 2.2 g/dL (3.4-5.0) Albumin/Globulin Ratio 0.5 (1.0-1.7) Glucose (Fingerstick) 166 mg/dL (70-99) Laboratory Tests Test 12/19/17 20:30 12/20/17 05:05 12/20/17 08:42 White Blood Count 16.3 x10^3/uL (4.0-11.0) 13.2 x10^3/uL (4.0-11.0) Red Blood Count 3.47 x10^6/uL (3.50-5.40) 3.13 x10^6/uL (3.50-5.40) Hemoglobin 10.6 g/dL (12.0-15.5) 9.6 g/dL (12.0-15.5) Hematocrit 31.6 % (36.0-47.0) 28.6 % (36.0-47.0) Mean Corpuscular Volume 91 fL (79-100) 92 fL (79-100) Mean Corpuscular Hemoglobin 31 pg (25-35) 31 pg (25-35) Mean Corpuscular Hemoglobin Concent 34 g/dL (31-37) 34 g/dL (31-37) Red Cell Distribution Width 13.8 % (11.5-14.5) 13.4 % (11.5-14.5) Platelet Count 388 x10^3/uL (140-400) 352 x10^3/uL (140-400) Neutrophils (%) (Auto) 85 % (31-73) 79 % (31-73) Lymphocytes (%) (Auto) 5 % (24-48) 8 % (24-48) Monocytes (%) (Auto) 7 % (0-9) 8 % (0-9) Eosinophils (%) (Auto) 3 % (0-3) 4 % (0-3) Basophils (%) (Auto) 1 % (0-3) 1 % (0-3) Neutrophils # (Auto) 13.8 x10^3uL (1.8-7.7) 10.3 x10^3uL (1.8-7.7) Lymphocytes # (Auto) 0.8 x10^3/uL (1.0-4.8) 1.1 x10^3/uL (1.0-4.8) Monocytes # (Auto) 1.1 x10^3/uL (0.0-1.1) 1.1 x10^3/uL (0.0-1.1) Eosinophils # (Auto) 0.4 x10^3/uL (0.0-0.7) 0.5 x10^3/uL (0.0-0.7) Basophils # (Auto) 0.1 x10^3/uL (0.0-0.2) 0.1 x10^3/uL (0.0-0.2) Segmented Neutrophils % 80 % (35-66) Band Neutrophils % 5 % (0-9) Lymphocytes % 3 % (24-48) Monocytes % 8 % (0-10) Eosinophils % 3 % (0-5) Basophils % 1 % (0-3) Platelet Estimate Adequate (ADEQUATE) Sodium Level 136 mmol/L (136-145) 135 mmol/L (136-145) Potassium Level 3.6 mmol/L (3.5-5.1) 3.7 mmol/L (3.5-5.1) Chloride Level 92 mmol/L (98-107) 94 mmol/L (98-107) Carbon Dioxide Level 26 mmol/L (21-32) 25 mmol/L (21-32) Anion Gap 18 (6-14) 16 (6-14) Blood Urea Nitrogen 91 mg/dL (7-20) 98 mg/dL (7-20) Creatinine 9.9 mg/dL (0.6-1.0) 10.0 mg/dL (0.6-1.0) Estimated GFR (Cockcroft-Gault) 4.1 4.1 BUN/Creatinine Ratio 9 (6-20) Glucose Level 273 mg/dL (70-99) 187 mg/dL (70-99) Lactic Acid Level 1.6 mmol/L (0.4-2.0) Calcium Level 5.7 mg/dL (8.5-10.1) 5.8 mg/dL (8.5-10.1) Phosphorus Level 10.4 mg/dL (2.6-4.7) Total Bilirubin 0.4 mg/dL (0.2-1.0) Aspartate Amino Transf (AST/SGOT) 15 U/L (15-37) Alanine Aminotransferase (ALT/SGPT) 16 U/L (14-59) Alkaline Phosphatase 160 U/L (46-116) Total Protein 6.8 g/dL (6.4-8.2) Albumin 2.2 g/dL (3.4-5.0) Albumin/Globulin Ratio 0.5 (1.0-1.7) Glucose (Fingerstick) 166 mg/dL (70-99) Review All relevant outside records, renal labs, imaging studies, telemetry/EKG's were reviewed. Images Images IMPRESSION: No sonographic evidence of acute DVT of the right lower extremity deep veins. BEAR LÓPEZ MD Dec 20, 2017 09:17
[2017-12-20] MEDS ORDERED: MAGNESIUM SULFATE 2GM 50 ML IV PRN (09:30)
--- NOTE | 2017-12-20 10:30 | EKG ---
[facility] [address] [place] [id number] Test Date: 2017-12-19 Test Time: 21:58:55 Pat Name: JAMAL BOSE Department: Room: 111 1 Gender: F [employer] Work[employer]: : 1965 Requested By: LENNIE STEEN Order Number: [id number] Reading MD: Diogo Orosco MD Measurements Intervals [place] Rate: 84 P: 45 [place]: 140 QRS: 58 QRSD: 82 T: 64 QT: 416 QTc: 495 Interpretive Statements SINUS RHYTHM PRIOR REKHA-SEPTAL INFARCT Electronically Signed On 12-22-2017 11:19:30 CDT by Diogo Orosco MD
[2017-12-20] MEDS: LINEZOLID 600 MG TABLET PO SCH ×2 (11:41→21:42)
[2017-12-20] MEDS: LACTOBACILLUS RHAMNOSUS GG 1 CAPSULE. PO SCH ×2 (12:00→21:42)
[2017-12-20] MEDS ORDERED: IV NORMAL SALINE 1000ML BAG 1,000 ML IV PRN ×2 (12:07)
[2017-12-20] MEDS ORDERED: diphenhydrAMINE 50 MG/ML VIAL IV PRN ×2 (12:15)
[2017-12-20] MEDS ORDERED: DIALYSIS PATIENT. MC PRN ×2 (12:15)
[2017-12-20] MEDS ORDERED: LABETALOL 20 MG/4 ML DISP.SYRIN. IVP PRN (12:15)
[2017-12-20] MEDS ORDERED: cloNIDine HCL 0.1 MG TABLET PO PRN (12:15)
[2017-12-20] MEDS ORDERED: ACETAMINOPHEN 500 MG TABLET PO PRN (12:15)
[2017-12-20] MEDS ORDERED: ALBUMIN HUMAN 25% 200 ML IV PRN (12:15)
[2017-12-20] MEDS ORDERED: ACETAMINOPHEN 325 MG TABLET. PO PRN (12:45)
[2017-12-20] MEDS ORDERED: DOCUSATE SODIUM 100 MG CAPSULE. PO PRN (12:45)
[2017-12-20] MEDS ORDERED: MORPHINE SULFATE 2 MG/ML VIAL. IV PRN (12:45)
[2017-12-20] MEDS ORDERED: ONDANSETRON PF 4 MG/2 ML VIAL. IV PRN (12:45)
--- NOTE | 2017-12-20 12:53 | PDOC1 ---
History and Physical Date of Admission Date of Admission 12/20/17 Identification/Chief Complaint Chief Complaint low Ca Source Source: Chart review, Patient History of Present Illness History of Present Illness HPI HPI Patient is a 52 year old female who presents with abnormal lab values for low Ca. pt has been doing PD daily for the past 5 weeks, was on HD before. She got a phone call from her activities specialist office yesterday and let her know that she needed to go to the emergency department for a very low calcium level. She has mild sob and chest pain 2 days ago, didnot do PD yesterday since coming to ER instead. no sob, chest pain today. has fatigue. She is currently on oral antibiotic therapy to treat her rt leg cellulitis with clindamycin, cipro for uti, ezi for gastroparesis. Her left lower leg is a below the knee amputation. Ca 5.7 in ER, 2 g overnight. Past Medical History Cardiovascular: CAD, HTN, [place], Hyperlipidemia, Aortic stenosis, Valve insufficiency, Other Pulmonary: Asthma, COPD, Pneumonia CENTRAL NERVOUS SYSTEM: Other GI: GERD, Other Heme/Onc: Anemia NOS Hepatobiliary: No pertinent hx Psych: No pertinent hx Rheumatologic: Fibromyalgia Infectious disease: Other Renal/: Chronic renal failure Endocrine: Diabetes, Hyperparathyroidism Past Surgical History Past Surgical History: CABG, Hysterectomy, Other Family History Family History: Diabetes, Hypertension Social History Smoke: No ALCOHOL: none Drugs: None, Other Current Problem List Problem List Problems Medical Problems: (1) End-stage renal disease on hemodialysis Status: Acute (2) Hypocalcemia Status: Acute Current Medications Current Medications Current Medications Medications (Trade) Dose Ordered Sig/Martin Start Time Stop Time Status Last Admin Dose Admin Acetaminophen (Tylenol) 500 mg 1X PRN PRN 12/20/17 12:15 12/21/17 12:14 Albumin Human 200 ml @ 200 mls/hr 1X PRN PRN 12/20/17 12:15 12/20/17 18:14 Albuterol Sulfate (Ventolin Neb Soln) 2.5 mg PRN BID PRN 12/20/17 02:45 Amiodarone HCl (Cordarone) 200 mg DAILY 12/20/17 09:00 12/20/17 08:44 200 MG Atorvastatin Calcium (Lipitor) 80 mg HS 12/20/17 21:00 Calcium Gluconate (Calcium Gluconate) 1,000 mg 1X ONCE 12/20/17 06:00 12/20/17 06:01 UNV Calcium Gluconate 1000 mg/Dextrose 110 ml @ 220 mls/hr 1X ONCE 12/20/17 06:15 12/20/17 06:44 DC 12/20/17 06:21 220 MLS/HR Carvedilol (Coreg) 12.5 mg BIDWMEALS 12/20/17 08:00 12/20/17 08:43 12.5 MG Ciprofloxacin (Cipro) 500 mg Q24H 12/21/17 07:00 Clindamycin HCl (Cleocin) 150 mg TID 12/20/17 09:00 12/20/17 09:08 DC 12/20/17 08:42 150 MG Clonidine HCl (Catapres) 0.1 mg 1X PRN PRN 12/20/17 12:15 12/21/17 12:14 Darbepoetin Mauricio (Aranesp) 60 mcg WEEKLYHS 12/20/17 21:00 Dextrose (Dextrose 50%-Water Syringe) 12.5 gm PRN Q15MIN PRN 12/20/17 08:45 Diltiazem HCl (Cardizem 24hr Cd) 120 mg DAILY 12/20/17 09:00 12/20/17 08:44 120 MG Diphenhydramine HCl (Benadryl) 25 mg 1X PRN PRN 12/20/17 12:15 12/21/17 12:14 Erythromycin (E-Mycin) 250 mg BID 12/20/17 09:00 12/20/17 08:44 250 MG Fenofibrate (Lofibra) 134 mg HS 12/20/17 21:00 Fentanyl Citrate (Fentanyl 2ml Vial) 50 mcg PRN Q2HR PRN 12/19/17 21:45 12/20/17 10:00 DC Fluconazole (Diflucan) 100 mg PRN DAILY PRN 12/20/17 00:30 12/20/17 11:34 DC Furosemide (Lasix) 80 mg [id number] 12/20/17 09:00 12/20/17 08:43 80 MG Info (PHARMACY MONITORING -- do not chart) 1 each PRN DAILY PRN 12/20/17 12:15 UNV Insulin Glargine (Lantus) 15 units QHS 12/20/17 21:00 Insulin Human Lispro (HumaLOG) 10 units TIDAC 12/20/17 11:30 12/20/17 08:46 5 UNITS Labetalol HCl (Normodyne Iv Push) 10 mg PRN Q1HR PRN 12/20/17 12:15 12/21/17 12:14 Lactobacillus Rhamnosus (Culturelle) 1 cap BID 12/20/17 12:00 Lidocaine (Lidoderm) 1 patch DAILY 12/20/17 09:00 12/20/17 08:42 1 PATCH Linezolid (Zyvox) 600 mg BID 12/20/17 11:00 12/20/17 11:41 600 MG Magnesium Sulfate 50 ml @ 25 mls/hr PRN DAILY PRN 12/20/17 09:30 Morphine Sulfate (Morphine Sulfate) 2 mg PRN Q2HR PRN 12/20/17 00:30 12/20/17 11:44 2 MG Morphine Sulfate (Ms Contin) 15 mg BID 12/20/17 09:00 12/20/17 08:43 15 MG Niacin (Slo-Niacin) 500 mg QEVNG 12/20/17 18:00 Nitroglycerin (Nitrostat) 0.4 mg PRN Q5MIN PRN 12/20/17 00:30 Non-Formulary Medication (Albuterol Sulfate (Proventil Hfa Inhaler)) 2 puff BID PRN 12/20/17 00:30 UNV Non-Formulary Medication (Ferric Citrate ) 210 mg 3X/WEEK 12/21/17 09:00 UNV Non-Formulary Medication ([regranex] ) 1 erich DAILY 12/20/17 09:00 UNV Nystatin (Nystatin Oral Susp) 5 ml [id number] 12/20/17 13:00 Nystatin (Nystop) 1 erich PRN BID PRN 12/20/17 00:30 Ondansetron HCl (Zofran Odt) 4 mg PRN Q6HRS PRN 12/20/17 00:30 Ondansetron HCl (Zofran) 4 mg PRN Q8HRS PRN 12/19/17 21:45 12/20/17 21:44 Oxycodone/ Acetaminophen (Percocet 10/325) 1 tab PRN Q4HRS PRN 12/20/17 02:00 12/20/17 06:26 1 TAB Oxycodone/ Acetaminophen (Percocet 5/325) 1 tab 1X ONCE 12/19/17 20:45 12/19/17 20:46 DC 12/19/17 20:51 1 TAB Sodium Chloride 1,000 ml @ 400 mls/hr Q2H30M PRN 12/20/17 12:07 12/21/17 00:06 Ticagrelor (Brilinta) 90 mg BID 12/20/17 09:00 12/20/17 08:43 90 MG Tramadol HCl (Ultram) 50 mg PRN Q4HRS PRN 12/20/17 00:30 Vitamin B Complex/ Vitamin C (Melly-Shabbir) 1 tab DAILY 12/20/17 09:00 12/20/17 08:43 1 TAB Allergies Allergies Allergies Coded Allergies Type Severity Reaction Last Updated Verified Sulfa (Sulfonamide Antibiotics) Allergy Severe Anaphylaxis 10/19/17 Yes meropenem Allergy Intermediate Rash 10/19/17 Yes piperacillin Allergy Intermediate Rash 10/19/17 Yes strawberry Allergy Intermediate 10/19/17 Yes tazobactam Allergy Intermediate 10/19/17 Yes cefazolin Adverse Reaction Intermediate Itching 10/19/17 Yes fentanyl Adverse Reaction Intermediate Nausea and Vomiting 10/19/17 Yes ROS Review of System CONSTITUTIONAL: No fever or chills EYES: No recent changes SKIN: No rash or itching CARDIOVASCULAR: No chest pain, syncope, palpitations, or edema RESPIRATORY: No SOB or cough GASTROINTESTINAL: No nausea, vomiting or abdominal pain NEUROLOGICAL: No headaches or weakness ENDOCRINE: No cold or heat intolerance GENITOURINARY: No urgency or frequency of urination MUSCULOSKELETAL: No back pain or joint pain LYMPHATICS: No enlarged lymph nodes PSYCHIATRIC: No anxiety or depression Physical Exam Physical Exam GEN.: No apparent distress. Alert and oriented. HEENT: Head is normocephalic, atraumatic NECK: Supple. LUNGS: Clear to auscultation. HEART: RRR, S1, S2 present. Peripheral pulses intact ABDOMEN: Soft, nontender. Positive bowel sounds. EXTREMITIES: Without any cyanosis. rt leg has redness, swelling, medial aspect has small open wounds. left leg BKA. rt foot small stable wound. weak pedal pulse. NEUROLOGIC: Normal speech, normal tone PSYCHIATRIC: Normal affect, normal mood. SKIN: No ulcerations Vitals Vitals Vital Signs Date Time Temp Pulse Resp B/P (MAP) Pulse Ox O2 Delivery O2 Flow Rate FiO2 12/20/17 11:44 99 Room Air 12/20/17 11:00 98.2 78 20 135/68 (90) 98.2 Labs Labs Laboratory Tests Test 12/19/17 20:30 12/20/17 05:05 12/20/17 08:42 White Blood Count 16.3 x10^3/uL (4.0-11.0) 13.2 x10^3/uL (4.0-11.0) Red Blood Count 3.47 x10^6/uL (3.50-5.40) 3.13 x10^6/uL (3.50-5.40) Hemoglobin 10.6 g/dL (12.0-15.5) 9.6 g/dL (12.0-15.5) Hematocrit 31.6 % (36.0-47.0) 28.6 % (36.0-47.0) Mean Corpuscular Volume 91 fL (79-100) 92 fL (79-100) Mean Corpuscular Hemoglobin 31 pg (25-35) 31 pg (25-35) Mean Corpuscular Hemoglobin Concent 34 g/dL (31-37) 34 g/dL (31-37) Red Cell Distribution Width 13.8 % (11.5-14.5) 13.4 % (11.5-14.5) Platelet Count 388 x10^3/uL (140-400) 352 x10^3/uL (140-400) Neutrophils (%) (Auto) 85 % (31-73) 79 % (31-73) Lymphocytes (%) (Auto) 5 % (24-48) 8 % (24-48) Monocytes (%) (Auto) 7 % (0-9) 8 % (0-9) Eosinophils (%) (Auto) 3 % (0-3) 4 % (0-3) Basophils (%) (Auto) 1 % (0-3) 1 % (0-3) Neutrophils # (Auto) 13.8 x10^3uL (1.8-7.7) 10.3 x10^3uL (1.8-7.7) Lymphocytes # (Auto) 0.8 x10^3/uL (1.0-4.8) 1.1 x10^3/uL (1.0-4.8) Monocytes # (Auto) 1.1 x10^3/uL (0.0-1.1) 1.1 x10^3/uL (0.0-1.1) Eosinophils # (Auto) 0.4 x10^3/uL (0.0-0.7) 0.5 x10^3/uL (0.0-0.7) Basophils # (Auto) 0.1 x10^3/uL (0.0-0.2) 0.1 x10^3/uL (0.0-0.2) Segmented Neutrophils % 80 % (35-66) Band Neutrophils % 5 % (0-9) Lymphocytes % 3 % (24-48) Monocytes % 8 % (0-10) Eosinophils % 3 % (0-5) Basophils % 1 % (0-3) Platelet Estimate Adequate (ADEQUATE) Sodium Level 136 mmol/L (136-145) 135 mmol/L (136-145) Potassium Level 3.6 mmol/L (3.5-5.1) 3.7 mmol/L (3.5-5.1) Chloride Level 92 mmol/L (98-107) 94 mmol/L (98-107) Carbon Dioxide Level 26 mmol/L (21-32) 25 mmol/L (21-32) Anion Gap 18 (6-14) 16 (6-14) Blood Urea Nitrogen 91 mg/dL (7-20) 98 mg/dL (7-20) Creatinine 9.9 mg/dL (0.6-1.0) 10.0 mg/dL (0.6-1.0) Estimated GFR (Cockcroft-Gault) 4.1 4.1 BUN/Creatinine Ratio 9 (6-20) Glucose Level 273 mg/dL (70-99) 187 mg/dL (70-99) Lactic Acid Level 1.6 mmol/L (0.4-2.0) Calcium Level 5.7 mg/dL (8.5-10.1) 5.8 mg/dL (8.5-10.1) Phosphorus Level 10.4 mg/dL (2.6-4.7) Total Bilirubin 0.4 mg/dL (0.2-1.0) Aspartate Amino Transf (AST/SGOT) 15 U/L (15-37) Alanine Aminotransferase (ALT/SGPT) 16 U/L (14-59) Alkaline Phosphatase 160 U/L (46-116) Total Protein 6.8 g/dL (6.4-8.2) Albumin 2.2 g/dL (3.4-5.0) 2.0 g/dL (3.4-5.0) Albumin/Globulin Ratio 0.5 (1.0-1.7) Glucose (Fingerstick) 166 mg/dL (70-99) Laboratory Tests Test 12/19/17 20:30 12/20/17 05:05 12/20/17 08:42 White Blood Count 16.3 x10^3/uL (4.0-11.0) 13.2 x10^3/uL (4.0-11.0) Red Blood Count 3.47 x10^6/uL (3.50-5.40) 3.13 x10^6/uL (3.50-5.40) Hemoglobin 10.6 g/dL (12.0-15.5) 9.6 g/dL (12.0-15.5) Hematocrit 31.6 % (36.0-47.0) 28.6 % (36.0-47.0) Mean Corpuscular Volume 91 fL (79-100) 92 fL (79-100) Mean Corpuscular Hemoglobin 31 pg (25-35) 31 pg (25-35) Mean Corpuscular Hemoglobin Concent 34 g/dL (31-37) 34 g/dL (31-37) Red Cell Distribution Width 13.8 % (11.5-14.5) 13.4 % (11.5-14.5) Platelet Count 388 x10^3/uL (140-400) 352 x10^3/uL (140-400) Neutrophils (%) (Auto) 85 % (31-73) 79 % (31-73) Lymphocytes (%) (Auto) 5 % (24-48) 8 % (24-48) Monocytes (%) (Auto) 7 % (0-9) 8 % (0-9) Eosinophils (%) (Auto) 3 % (0-3) 4 % (0-3) Basophils (%) (Auto) 1 % (0-3) 1 % (0-3) Neutrophils # (Auto) 13.8 x10^3uL (1.8-7.7) 10.3 x10^3uL (1.8-7.7) Lymphocytes # (Auto) 0.8 x10^3/uL (1.0-4.8) 1.1 x10^3/uL (1.0-4.8) Monocytes # (Auto) 1.1 x10^3/uL (0.0-1.1) 1.1 x10^3/uL (0.0-1.1) Eosinophils # (Auto) 0.4 x10^3/uL (0.0-0.7) 0.5 x10^3/uL (0.0-0.7) Basophils # (Auto) 0.1 x10^3/uL (0.0-0.2) 0.1 x10^3/uL (0.0-0.2) Segmented Neutrophils % 80 % (35-66) Band Neutrophils % 5 % (0-9) Lymphocytes % 3 % (24-48) Monocytes % 8 % (0-10) Eosinophils % 3 % (0-5) Basophils % 1 % (0-3) Platelet Estimate Adequate (ADEQUATE) Sodium Level 136 mmol/L (136-145) 135 mmol/L (136-145) Potassium Level 3.6 mmol/L (3.5-5.1) 3.7 mmol/L (3.5-5.1) Chloride Level 92 mmol/L (98-107) 94 mmol/L (98-107) Carbon Dioxide Level 26 mmol/L (21-32) 25 mmol/L (21-32) Anion Gap 18 (6-14) 16 (6-14) Blood Urea Nitrogen 91 mg/dL (7-20) 98 mg/dL (7-20) Creatinine 9.9 mg/dL (0.6-1.0) 10.0 mg/dL (0.6-1.0) Estimated GFR (Cockcroft-Gault) 4.1 4.1 BUN/Creatinine Ratio 9 (6-20) Glucose Level 273 mg/dL (70-99) 187 mg/dL (70-99) Lactic Acid Level 1.6 mmol/L (0.4-2.0) Calcium Level 5.7 mg/dL (8.5-10.1) 5.8 mg/dL (8.5-10.1) Phosphorus Level 10.4 mg/dL (2.6-4.7) Total Bilirubin 0.4 mg/dL (0.2-1.0) Aspartate Amino Transf (AST/SGOT) 15 U/L (15-37) Alanine Aminotransferase (ALT/SGPT) 16 U/L (14-59) Alkaline Phosphatase 160 U/L (46-116) Total Protein 6.8 g/dL (6.4-8.2) Albumin 2.2 g/dL (3.4-5.0) 2.0 g/dL (3.4-5.0) Albumin/Globulin Ratio 0.5 (1.0-1.7) Glucose (Fingerstick) 166 mg/dL (70-99) VTE Prophylaxis Ordered VTE Prophylaxis Devices: Yes VTE Pharmacological Prophylaxi: Yes Assessment/Plan Assessment/Plan hypocalcemia on PD ESRD on PD rt leg cellulitis h/o CAD WITH 8 stents. CABG h/o VRE, MRSA, ALlergic to zosyn, meropenum dm2 on insulin left leg BKA chronic back pain plan: fu with renal, need HD, PD held cont home meds, slightly decrease insulin, ssi dc clinda, add zyvox, cont cipro. rt leg US to rule out abscess, ID consult got 2g Calcium overnight wound care consult dvt ppx pain management consult ok transfer out of ICU QUIN BARRY MD Dec 20, 2017 12:53
[2017-12-20] MEDS: NYSTATIN 100,000 UNITS/ML 5 ML ORAL.SUSP. SWSW SCH ×4 (13:00→21:00)
[2017-12-20] MEDS: HEPARIN PF for SUB-Q USE 5,000 UNIT/0.5 ML VIAL. SQ SCH ×2 (14:19→22:15)
[2017-12-20] MEDS: NIACIN ER 500 MG TABLET.ER PO SCH (17:50)
[2017-12-20] MEDS ORDERED: DARBEPOETIN ALFA 60 MCG/0.3 ML DISP.SYRIN. SQ SCH (21:00)
[2017-12-20] MEDS ORDERED: INSULIN GLARGINE 300 UNITS/3 ML INSULN.PEN. SQ SCH (21:00)
[2017-12-20] MEDS: FENOFIBRATE,MICRONIZED 134 MG CAPSULE PO SCH (21:42)
[2017-12-20] MEDS: ATORVASTATIN CALCIUM 40 MG TABLET. PO SCH (21:43)
[2017-12-20] MEDS: INSULIN GLARGINE 300 UNITS/3 ML INSULN.PEN. SQ SCH (22:17)
[2017-12-21] VITALS (7 sets, daily range): BP systolic 109–136; BP diastolic 50–88
[2017-12-21 00:11] LABS: CALCIUM PTH 5.6 mg/dL (8.7-10.2); CREATININE PTH 9.29 mg/dL (0.57-1.00); PHOSPHORUS PTH 10.9 mg/dL (2.5-4.5); PTH INTACT 721 pg/mL (15-65)
[2017-12-21] MEDS: oxyCODONE/APAP 10/325 1 TAB TABLET PO PRN (06:35)
[2017-12-21] MEDS: HEPARIN PF for SUB-Q USE 5,000 UNIT/0.5 ML VIAL. SQ SCH ×4 (06:43→20:12)
[2017-12-21] MEDS ORDERED: ONDANSETRON ODT 4 MG TAB.RAPDIS. ONE (06:45)
[2017-12-21] MEDS ORDERED: CIPROFLOXACIN HCL 250 MG TABLET. PO SCH (07:00)
[2017-12-21 07:17] LABS: ALBUMIN 2.2 g/dL (3.4-5.0); CALCIUM 7.3 mg/dL (8.5-10.1); CREATININE 5.9 mg/dL (0.6-1.0); GFR 7.5; MAGNESIUM 1.9 mg/dL (1.8-2.4); PHOSPHORUS 7.4 mg/dL (2.6-4.7); POTASSIUM 4.2 mmol/L (3.5-5.1)
[2017-12-21 07:18] LABS: BASO # 0.1 x10^3/uL (0.0-0.2); BASO % 1 % (0-3); EOS # 0.4 x10^3/uL (0.0-0.7); EOS % 3 % (0-3); HEMATOCRIT 28.7 % (36.0-47.0); HEMOGLOBIN 9.7 g/dL (12.0-15.5); LYMPH % 8 % (24-48); MEAN CORPUSCULAR HEMOGLOBIN 31 pg (25-35); MEAN CORPUSCULAR HGB CONC 34 g/dL (31-37); MEAN CORPUSCULAR VOLUME 92 fL (79-100); MONO # 1.2 x10^3/uL (0.0-1.1); MONO % 10 % (0-9); NEUT # 9.5 x10^3uL (1.8-7.7); NEUT % 79 % (31-73); PLATELET COUNT 406 x10^3/uL (140-400); RED BLOOD COUNT 3.12 x10^6/uL (3.50-5.40); RED CELL DISTRIBUTION WIDTH 13.7 % (11.5-14.5); WHITE BLOOD COUNT 12.1 x10^3/uL (4.0-11.0)
[2017-12-21] MEDS: INSULIN LISPRO 300 UNITS/3 ML INSULN.PEN. SQ SCH ×7 (07:30→17:26)
--- NOTE | 2017-12-21 07:36 | RAD ---
Right lower leg ultrasound, 12/20/2017: HISTORY: Cellulitis, possible abscess The area of of clinical concern in the right calf was carefully scanned. There is extensive subcutaneous edema. No mass is identified. No discrete, well marginated fluid collection is seen to suggest a drainable abscess. Electronically signed by: Ronald Levy MD (12/21/2017 7:33 AM) [facility]
[2017-12-21] MEDS: FOLIC/VIT B COMP W-C (RENAL) TABLET. PO SCH (08:36)
[2017-12-21] MEDS: TICAGRELOR 90 MG TABLET. PO SCH ×2 (08:36→20:04)
[2017-12-21] MEDS: LINEZOLID 600 MG TABLET PO SCH ×2 (08:36→20:05)
[2017-12-21] MEDS: FUROSEMIDE 80 MG TABLET. PO SCH ×2 (08:36→17:21)
[2017-12-21] MEDS: LACTOBACILLUS RHAMNOSUS GG 1 CAPSULE. PO SCH ×2 (08:36→20:03)
[2017-12-21] MEDS: ERYTHROMYCIN BASE 250 MG TABLET PO SCH ×2 (08:36→20:04)
[2017-12-21] MEDS: CARVEDILOL 3.125 MG TABLET. PO SCH ×2 (08:37→17:22)
[2017-12-21] MEDS: AMIODARONE HCL 200 MG TABLET. PO SCH (08:37)
[2017-12-21] MEDS: MORPHINE ER 15 MG TABLET.ER PO SCH ×2 (08:38→20:05)
[2017-12-21] MEDS: MORPHINE SULFATE 2 MG/ML VIAL. IV PRN ×2 (08:41→14:36)
[2017-12-21] MEDS: NYSTATIN 100,000 UNITS/ML 5 ML ORAL.SUSP. SWSW SCH ×2 (08:42→13:00)
[2017-12-21] MEDS: LIDOCAINE (700MG/PATCH) PATCH. TD SCH (08:42)
[2017-12-21] MEDS ORDERED: NON FORMULARY ITEM (Ferric Citrate 210 MG) PO SCH (09:00)
[2017-12-21] MEDS: APP TD SCH (09:00)
[2017-12-21] MEDS ORDERED: ceFAZolin SODIUM 1 GM in IV DEXTROSE 5% 50 ML IV SCH (09:00)
--- NOTE | 2017-12-21 09:11 | PDOC ---
Provider Note Provider Note pt seen consult dictated [id number] IMP: RLE mild cellulitis ESRD Allergy to merrem, zosyn, cefazolin ( itching ), though pt says has tolerated keflex and cefazolin hypocalcemia ,improving REC: Cefazolin,benadryl if needed prn cont empiric linezolid restart fluconazole, dc on 12/20 dc cipro elevate RLE GRACIELA LÓPEZ MD Dec 21, 2017 09:11
[2017-12-21] MEDS ORDERED: IV NORMAL SALINE 1000ML BAG 1,000 ML IV PRN ×2 (09:18)
[2017-12-21] MEDS ORDERED: DIALYSIS PATIENT. MC PRN ×2 (09:30)
[2017-12-21] MEDS ORDERED: LIDOCAINE 2% PF 2ML VIAL. ONE (09:51)
--- NOTE | 2017-12-21 10:13 | PDOC ---
Renal-Progress Notes Subjective Notes Notes NO COMPLAINTS History of Present Illness Hx of present illness STABLE Vitals Vitals Vital Signs Date Time Temp Pulse Resp B/P (MAP) Pulse Ox O2 Delivery O2 Flow Rate FiO2 12/21/17 09:36 97 Room Air 12/21/17 08:37 70 126/59 12/21/17 07:00 98.1 16 98.1 Weight Weight [ ] I.O. Intake and Output Intake and Output 12/21/17 07:00 Intake Total 800 ml Balance 800 ml Intake Oral 800 ml # Bowel Movements 1 Labs Labs Laboratory Tests Test 12/20/17 10:15 12/20/17 16:49 12/20/17 21:54 12/21/17 06:14 Estimated GFR (Non- 4 (>59) EGFR 5 (>59) PTH (Intact) Specimen Description Comment (.) Parathyroid Hormone (Intact) 721 pg/mL (15-65) Calcium (PTH Intact) 5.6 mg/dL (8.7-10.2) Creatinine (PTH Intact) 9.29 mg/dL (0.57-1.00) Phosphorus (PTH Intact) 10.9 mg/dL (2.5-4.5) Glucose (Fingerstick) 224 mg/dL (70-99) 237 mg/dL (70-99) White Blood Count 12.1 x10^3/uL (4.0-11.0) Red Blood Count 3.12 x10^6/uL (3.50-5.40) Hemoglobin 9.7 g/dL (12.0-15.5) Hematocrit 28.7 % (36.0-47.0) Mean Corpuscular Volume 92 fL (79-100) Mean Corpuscular Hemoglobin 31 pg (25-35) Mean Corpuscular Hemoglobin Concent 34 g/dL (31-37) Red Cell Distribution Width 13.7 % (11.5-14.5) Platelet Count 406 x10^3/uL (140-400) Neutrophils (%) (Auto) 79 % (31-73) Lymphocytes (%) (Auto) 8 % (24-48) Monocytes (%) (Auto) 10 % (0-9) Eosinophils (%) (Auto) 3 % (0-3) Basophils (%) (Auto) 1 % (0-3) Neutrophils # (Auto) 9.5 x10^3uL (1.8-7.7) Lymphocytes # (Auto) 1.0 x10^3/uL (1.0-4.8) Monocytes # (Auto) 1.2 x10^3/uL (0.0-1.1) Eosinophils # (Auto) 0.4 x10^3/uL (0.0-0.7) Basophils # (Auto) 0.1 x10^3/uL (0.0-0.2) Sodium Level 132 mmol/L (136-145) Potassium Level 4.2 mmol/L (3.5-5.1) Chloride Level 95 mmol/L (98-107) Carbon Dioxide Level 27 mmol/L (21-32) Anion Gap 10 (6-14) Blood Urea Nitrogen 49 mg/dL (7-20) Creatinine 5.9 mg/dL (0.6-1.0) Estimated GFR (Cockcroft-Gault) 7.5 Glucose Level 206 mg/dL (70-99) Calcium Level 7.3 mg/dL (8.5-10.1) Phosphorus Level 7.4 mg/dL (2.6-4.7) Magnesium Level 1.9 mg/dL (1.8-2.4) Creatine Kinase 111 U/L (26-192) Albumin 2.2 g/dL (3.4-5.0) Test 12/21/17 08:35 Glucose (Fingerstick) 172 mg/dL (70-99) Micro Micro Microbiology 12/19/17 Blood Culture - Preliminary, Resulted NO GROWTH AFTER 1 DAY Review of Systems Constitutional: yes: no symptom reported Ears/Nose/Throat: Yes: no symptom reported Eyes: Yes: no symptom reported Pulmonary: Yes no symptom reported Cardiovascular: Yes no symptom reported Gastrointestional: Yes: no symptom reported Genitourinary: Yes: no symptom reported Musculoskeletal: Yes: no symptom reported Skin: Yes no symptom reported Psychiatric/Neurological: Yes: no symptom reported Endocrine: Yes: no symptom reported Physical Exam General Appearance: no apparent distress Respiratory: bilateral CTA Heart: S1S2 Abdomen: soft, bowel sounds present Genitourinary: bladder flat Extremities: pulses present Neurology: alert, oriented Assessment Assessment IMP ESRD ANEMIA DM II HTN R LE CELLULITIS PLAN HD TODAY UF TO DW HD AGAIN TOMORROW THEN PROB D/C TO GO HOME WITH NIGHT TIME PD ANTIBIOTICS CHARLY ZAVALA MD Dec 21, 2017 10:13
--- NOTE | 2017-12-21 12:25 | PDOC ---
PROGRESS NOTES Chief Complaint Chief Complaint hypocalcemia on PD ESRD on PD rt leg cellulitis h/o CAD WITH 8 stents. CABG h/o VRE, MRSA, ALlergic to zosyn, meropenum dm2 on insulin left leg BKA chronic back pain plan: fu with renal, need HD yesterday, today and tmr, PD held cont home meds, slightly decrease insulin, ssi, but pt seems refused novolog sometime dc clinda, add zyvox, dc cipro. rt leg US to rule out abscess, ID consulted, add diflucan and cefazolin with benadryl prn got 2g Calcium in icu yesterday wound care consult dvt ppx pain management consult pending dc soon History of Present Illness History of Present Illness ROS: no fever, chills, sob or chest pain rt leg pain worse, US no abscess seems ok to take keflex and cefazolin before Ca better with HD and repletion Vitals Vitals Vital Signs Date Time Temp Pulse Resp B/P (MAP) Pulse Ox O2 Delivery O2 Flow Rate FiO2 12/21/17 09:36 97 Room Air 12/21/17 08:37 70 126/59 12/21/17 07:00 98.1 16 98.1 Physical Exam Physical Exam rt leg is red and swollen with a small open wound at medial aspect. General: Alert, Oriented X3, Cooperative Heart: Regular rate, Normal S1, Normal S2 Lungs: Clear Abdomen: Normal bowel sounds, No tenderness Extremities: No clubbing, No cyanosis Skin: No rashes Labs LABS Laboratory Tests Test 12/20/17 16:49 12/20/17 21:54 12/21/17 06:14 12/21/17 08:35 Glucose (Fingerstick) 224 mg/dL (70-99) 237 mg/dL (70-99) 172 mg/dL (70-99) White Blood Count 12.1 x10^3/uL (4.0-11.0) Red Blood Count 3.12 x10^6/uL (3.50-5.40) Hemoglobin 9.7 g/dL (12.0-15.5) Hematocrit 28.7 % (36.0-47.0) Mean Corpuscular Volume 92 fL (79-100) Mean Corpuscular Hemoglobin 31 pg (25-35) Mean Corpuscular Hemoglobin Concent 34 g/dL (31-37) Red Cell Distribution Width 13.7 % (11.5-14.5) Platelet Count 406 x10^3/uL (140-400) Neutrophils (%) (Auto) 79 % (31-73) Lymphocytes (%) (Auto) 8 % (24-48) Monocytes (%) (Auto) 10 % (0-9) Eosinophils (%) (Auto) 3 % (0-3) Basophils (%) (Auto) 1 % (0-3) Neutrophils # (Auto) 9.5 x10^3uL (1.8-7.7) Lymphocytes # (Auto) 1.0 x10^3/uL (1.0-4.8) Monocytes # (Auto) 1.2 x10^3/uL (0.0-1.1) Eosinophils # (Auto) 0.4 x10^3/uL (0.0-0.7) Basophils # (Auto) 0.1 x10^3/uL (0.0-0.2) Sodium Level 132 mmol/L (136-145) Potassium Level 4.2 mmol/L (3.5-5.1) Chloride Level 95 mmol/L (98-107) Carbon Dioxide Level 27 mmol/L (21-32) Anion Gap 10 (6-14) Blood Urea Nitrogen 49 mg/dL (7-20) Creatinine 5.9 mg/dL (0.6-1.0) Estimated GFR (Cockcroft-Gault) 7.5 Glucose Level 206 mg/dL (70-99) Calcium Level 7.3 mg/dL (8.5-10.1) Phosphorus Level 7.4 mg/dL (2.6-4.7) Magnesium Level 1.9 mg/dL (1.8-2.4) Creatine Kinase 111 U/L (26-192) Albumin 2.2 g/dL (3.4-5.0) Assessment and Plan Assessmemt and Plan Problems Medical Problems: (1) End-stage renal disease on hemodialysis Status: Acute (2) Hypocalcemia Status: Acute Comment Review of Relevant I have reviewed the following items bert (where applicable) has been applied. Labs Laboratory Tests Test 12/19/17 20:30 12/19/17 23:30 12/20/17 05:05 12/20/17 08:42 White Blood Count 16.3 x10^3/uL (4.0-11.0) 13.2 x10^3/uL (4.0-11.0) Red Blood Count 3.47 x10^6/uL (3.50-5.40) 3.13 x10^6/uL (3.50-5.40) Hemoglobin 10.6 g/dL (12.0-15.5) 9.6 g/dL (12.0-15.5) Hematocrit 31.6 % (36.0-47.0) 28.6 % (36.0-47.0) Mean Corpuscular Volume 91 fL (79-100) 92 fL (79-100) Mean Corpuscular Hemoglobin 31 pg (25-35) 31 pg (25-35) Mean Corpuscular Hemoglobin Concent 34 g/dL (31-37) 34 g/dL (31-37) Red Cell Distribution Width 13.8 % (11.5-14.5) 13.4 % (11.5-14.5) Platelet Count 388 x10^3/uL (140-400) 352 x10^3/uL (140-400) Neutrophils (%) (Auto) 85 % (31-73) 79 % (31-73) Lymphocytes (%) (Auto) 5 % (24-48) 8 % (24-48) Monocytes (%) (Auto) 7 % (0-9) 8 % (0-9) Eosinophils (%) (Auto) 3 % (0-3) 4 % (0-3) Basophils (%) (Auto) 1 % (0-3) 1 % (0-3) Neutrophils # (Auto) 13.8 x10^3uL (1.8-7.7) 10.3 x10^3uL (1.8-7.7) Lymphocytes # (Auto) 0.8 x10^3/uL (1.0-4.8) 1.1 x10^3/uL (1.0-4.8) Monocytes # (Auto) 1.1 x10^3/uL (0.0-1.1) 1.1 x10^3/uL (0.0-1.1) Eosinophils # (Auto) 0.4 x10^3/uL (0.0-0.7) 0.5 x10^3/uL (0.0-0.7) Basophils # (Auto) 0.1 x10^3/uL (0.0-0.2) 0.1 x10^3/uL (0.0-0.2) Segmented Neutrophils % 80 % (35-66) Band Neutrophils % 5 % (0-9) Lymphocytes % 3 % (24-48) Monocytes % 8 % (0-10) Eosinophils % 3 % (0-5) Basophils % 1 % (0-3) Platelet Estimate Adequate (ADEQUATE) Sodium Level 136 mmol/L (136-145) 135 mmol/L (136-145) Potassium Level 3.6 mmol/L (3.5-5.1) 3.7 mmol/L (3.5-5.1) Chloride Level 92 mmol/L (98-107) 94 mmol/L (98-107) Carbon Dioxide Level 26 mmol/L (21-32) 25 mmol/L (21-32) Anion Gap 18 (6-14) 16 (6-14) Blood Urea Nitrogen 91 mg/dL (7-20) 98 mg/dL (7-20) Creatinine 9.9 mg/dL (0.6-1.0) 10.0 mg/dL (0.6-1.0) Estimated GFR (Cockcroft-Gault) 4.1 4.1 BUN/Creatinine Ratio 9 (6-20) Glucose Level 273 mg/dL (70-99) 187 mg/dL (70-99) Lactic Acid Level 1.6 mmol/L (0.4-2.0) Calcium Level 5.7 mg/dL (8.5-10.1) 5.8 mg/dL (8.5-10.1) Phosphorus Level 10.4 mg/dL (2.6-4.7) Total Bilirubin 0.4 mg/dL (0.2-1.0) Aspartate Amino Transf (AST/SGOT) 15 U/L (15-37) Alanine Aminotransferase (ALT/SGPT) 16 U/L (14-59) Alkaline Phosphatase 160 U/L (46-116) Total Protein 6.8 g/dL (6.4-8.2) Albumin 2.2 g/dL (3.4-5.0) 2.0 g/dL (3.4-5.0) Albumin/Globulin Ratio 0.5 (1.0-1.7) Nasal Screen MRSA (PCR) Negative (Negative) Glucose (Fingerstick) 166 mg/dL (70-99) Test 12/20/17 10:15 12/20/17 16:49 12/20/17 21:54 12/21/17 06:14 Estimated GFR (Non- 4 (>59) EGFR 5 (>59) PTH (Intact) Specimen Description Comment (.) Parathyroid Hormone (Intact) 721 pg/mL (15-65) Calcium (PTH Intact) 5.6 mg/dL (8.7-10.2) Creatinine (PTH Intact) 9.29 mg/dL (0.57-1.00) Phosphorus (PTH Intact) 10.9 mg/dL (2.5-4.5) Glucose (Fingerstick) 224 mg/dL (70-99) 237 mg/dL (70-99) White Blood Count 12.1 x10^3/uL (4.0-11.0) Red Blood Count 3.12 x10^6/uL (3.50-5.40) Hemoglobin 9.7 g/dL (12.0-15.5) Hematocrit 28.7 % (36.0-47.0) Mean Corpuscular Volume 92 fL (79-100) Mean Corpuscular Hemoglobin 31 pg (25-35) Mean Corpuscular Hemoglobin Concent 34 g/dL (31-37) Red Cell Distribution Width 13.7 % (11.5-14.5) Platelet Count 406 x10^3/uL (140-400) Neutrophils (%) (Auto) 79 % (31-73) Lymphocytes (%) (Auto) 8 % (24-48) Monocytes (%) (Auto) 10 % (0-9) Eosinophils (%) (Auto) 3 % (0-3) Basophils (%) (Auto) 1 % (0-3) Neutrophils # (Auto) 9.5 x10^3uL (1.8-7.7) Lymphocytes # (Auto) 1.0 x10^3/uL (1.0-4.8) Monocytes # (Auto) 1.2 x10^3/uL (0.0-1.1) Eosinophils # (Auto) 0.4 x10^3/uL (0.0-0.7) Basophils # (Auto) 0.1 x10^3/uL (0.0-0.2) Sodium Level 132 mmol/L (136-145) Potassium Level 4.2 mmol/L (3.5-5.1) Chloride Level 95 mmol/L (98-107) Carbon Dioxide Level 27 mmol/L (21-32) Anion Gap 10 (6-14) Blood Urea Nitrogen 49 mg/dL (7-20) Creatinine 5.9 mg/dL (0.6-1.0) Estimated GFR (Cockcroft-Gault) 7.5 Glucose Level 206 mg/dL (70-99) Calcium Level 7.3 mg/dL (8.5-10.1) Phosphorus Level 7.4 mg/dL (2.6-4.7) Magnesium Level 1.9 mg/dL (1.8-2.4) Creatine Kinase 111 U/L (26-192) Albumin 2.2 g/dL (3.4-5.0) Test 12/21/17 08:35 Glucose (Fingerstick) 172 mg/dL (70-99) Laboratory Tests Test 12/20/17 16:49 12/20/17 21:54 12/21/17 06:14 12/21/17 08:35 Glucose (Fingerstick) 224 mg/dL (70-99) 237 mg/dL (70-99) 172 mg/dL (70-99) White Blood Count 12.1 x10^3/uL (4.0-11.0) Red Blood Count 3.12 x10^6/uL (3.50-5.40) Hemoglobin 9.7 g/dL (12.0-15.5) Hematocrit 28.7 % (36.0-47.0) Mean Corpuscular Volume 92 fL (79-100) Mean Corpuscular Hemoglobin 31 pg (25-35) Mean Corpuscular Hemoglobin Concent 34 g/dL (31-37) Red Cell Distribution Width 13.7 % (11.5-14.5) Platelet Count 406 x10^3/uL (140-400) Neutrophils (%) (Auto) 79 % (31-73) Lymphocytes (%) (Auto) 8 % (24-48) Monocytes (%) (Auto) 10 % (0-9) Eosinophils (%) (Auto) 3 % (0-3) Basophils (%) (Auto) 1 % (0-3) Neutrophils # (Auto) 9.5 x10^3uL (1.8-7.7) Lymphocytes # (Auto) 1.0 x10^3/uL (1.0-4.8) Monocytes # (Auto) 1.2 x10^3/uL (0.0-1.1) Eosinophils # (Auto) 0.4 x10^3/uL (0.0-0.7) Basophils # (Auto) 0.1 x10^3/uL (0.0-0.2) Sodium Level 132 mmol/L (136-145) Potassium Level 4.2 mmol/L (3.5-5.1) Chloride Level 95 mmol/L (98-107) Carbon Dioxide Level 27 mmol/L (21-32) Anion Gap 10 (6-14) Blood Urea Nitrogen 49 mg/dL (7-20) Creatinine 5.9 mg/dL (0.6-1.0) Estimated GFR (Cockcroft-Gault) 7.5 Glucose Level 206 mg/dL (70-99) Calcium Level 7.3 mg/dL (8.5-10.1) Phosphorus Level 7.4 mg/dL (2.6-4.7) Magnesium Level 1.9 mg/dL (1.8-2.4) Creatine Kinase 111 U/L (26-192) Albumin 2.2 g/dL (3.4-5.0) Microbiology 12/19/17 Blood Culture - Preliminary, Resulted NO GROWTH AFTER 1 DAY Medications Current Medications Oxycodone/ Acetaminophen (Percocet 5/325) 1 tab 1X ONCE PO Last administered on 12/19/17at 20:51; Start 12/19/17 at 20:45; Stop 12/19/17 at 20:46; Status DC Calcium Gluconate (Calcium Gluconate) 1,000 mg 1X ONCE IVP Last administered on 12/19/17at 22:07; Start 12/19/17 at 21:30; Stop 12/19/17 at 21:31; Status DC Ondansetron HCl (Zofran) 4 mg PRN Q8HRS PRN IV NAUSEA/VOMITING; Start 12/19/17 at 21:45; Stop 12/20/17 at 21:44; Status DC Fentanyl Citrate (Fentanyl 2ml Vial) 50 mcg PRN Q2HR PRN IV PAIN; Start at 21:45; Stop 12/20/17 at 10:00; Status DC Morphine Sulfate (Morphine Sulfate) 2 mg PRN Q2HR PRN IV PAIN Last administered on 12/21/17 08:41; Start 12/20/17 at 00:30 Amiodarone HCl (Cordarone) 200 mg DAILY PO Last administered on 12/21/17 08:37 ; Start 12/20/17 at 09:00 Carvedilol (Coreg) 12.5 mg BIDWMEALS PO Last administered on 12/21/17 08:37; Start 12/20/17 at 08:00 Vitamin B Complex/ Vitamin C (Melly-Shabbir) 1 tab DAILY PO Last administered on at 08:36; Start 12/20/17 at 09:00 Furosemide (Lasix) 80 mg [id number] PO Last administered on 12/21/17at 08:36; Start 12/20/17 at 09:00 Insulin Glargine (Lantus) 18 units QHS SQ ; Start 12/20/17 at 21:00; Stop at 21:00; Status DC Morphine Sulfate (Ms Contin) 15 mg BID PO Last administered on 12/21/17at 08:38 ; Start 12/20/17 at 09:00 Nitroglycerin (Nitrostat) 0.4 mg PRN Q5MIN PRN SL CHEST PAIN; Start 12/20/17 at 00:30 Nystatin (Nystop) 1 susanna PRN BID PRN TP SKIN BREAKDOWN; Start 12/20/17 at 00:30 Oxycodone/ Acetaminophen (Percocet 10/325) 1 tab Q4HRS PO ; Start 12/20/17 at 04 :00; Status Cancel Ticagrelor (Brilinta) 90 mg BID PO Last administered on 12/21/17at 08:36; Start 12/20/17 at 09:00 Tramadol HCl (Ultram) 50 mg PRN Q4HRS PRN PO HEADACHE, MILD PAIN; Start at 00:30 Non-Formulary Medication (Albuterol Sulfate (Proventil Hfa Inhaler)) 2 puff BID PRN IH FOR ASTHMA; Start 12/20/17 at 00:30; Status UNV Atorvastatin Calcium (Lipitor) 80 mg HS PO Last administered on 12/20/17at 21:43 ; Start 12/20/17 at 21:00 Diltiazem HCl (Cardizem 24hr Cd) 120 mg DAILY PO Last administered on at 08:36; Start 12/20/17 at 09:00 Erythromycin (E-Mycin) 250 mg BID PO Last administered on 12/21/17at 08:36; Start 12/20/17 at 09:00 Fenofibrate (Lofibra) 134 mg HS PO Last administered on 12/20/17at 21:42; Start 12/20/17 at 21:00 Non-Formulary Medication (Ferric Citrate ) 210 mg 3X/WEEK PO ; Start 12/21/17 at 09:00; Status UNV Fluconazole (Diflucan) 100 mg PRN DAILY PRN PO YEAST INFECTION; Start 12/20/17 at 00:30; Stop 12/20/17 at 11:34; Status DC Lidocaine (Lidoderm) 1 patch DAILY TD Last administered on 12/21/17at 08:42; Start 12/20/17 at 09:00 Niacin (Slo-Niacin) 500 mg QEVNG PO Last administered on 12/20/17at 17:50; Start 12/20/17 at 18:00 Ondansetron HCl (Zofran Odt) 4 mg PRN Q6HRS PRN PO NAUSEA/VOMITING Last administered on 12/21/17at 06:34; Start 12/20/17 at 00:30 Non-Formulary Medication ([regranex] ) 1 susanna DAILY TD ; Start 12/20/17 at 09:00 ; Status UNV Ciprofloxacin (Cipro) 500 mg [id number] PO Last administered on 12/20/17at 06:21; Start 12/20/17 at 07:00; Stop 12/20/17 at 10:32; Status DC Clindamycin HCl (Cleocin) 150 mg TID PO Last administered on 12/20/17at 08:42; Start 12/20/17 at 09:00; Stop 12/20/17 at 09:08; Status DC Oxycodone/ Acetaminophen (Percocet 10/325) 1 tab PRN Q4HRS PRN PO MODERATE PAIN Last administered on 12/21/17at 06:35; Start 12/20/17 at 02:00 Albuterol Sulfate (Ventolin Neb Soln) 2.5 mg PRN BID PRN NEB SHORTNESS OF BREATH; Start 12/20/17 at 02:45 Calcium Gluconate (Calcium Gluconate) 1,000 mg 1X ONCE IVP ; Start 12/20/17 at 06:00; Stop 12/20/17 at 06:01; Status UNV Calcium Gluconate 1000 mg/Dextrose 110 ml @ 220 mls/hr 1X ONCE IV Last administered on 12/20/17at 06:21; Start 12/20/17 at 06:15; Stop 12/20/17 at 06:44 ; Status DC Insulin Human Lispro (HumaLOG) 0-9 UNITS TIDWMEALS SQ Last administered on 12/21at 08:49; Start 12/20/17 at 12:00 Dextrose (Dextrose 50%-Water Syringe) 12.5 gm PRN Q15MIN PRN IV SEE COMMENTS; Start 12/20/17 at 08:45 Insulin Human Lispro (HumaLOG) 10 units TIDAC SQ Last administered on at 08:46; Start 12/20/17 at 11:30 Linezolid (Zyvox) 600 mg BID PO Last administered on 12/21/17at 08:36; Start at 11:00 Nystatin (Nystatin Oral Susp) 5 ml [id number] ; Start 12/20/17 at 13:00 Darbepoetin Mauricio (Aranesp) 60 mcg [id number] SQ Last administered on 12/20/17at 23 :22; Start 12/20/17 at 21:00 Magnesium Sulfate 50 ml @ 25 mls/hr PRN DAILY PRN IV for Mag < 1.7 on am labs; Start 12/20/17 at 09:30 Ciprofloxacin (Cipro) 500 mg Q24H PO Last administered on 12/21/17at 06:36; Start 12/21/17 at 07:00; Stop 12/21/17 at 08:54; Status DC Lactobacillus Rhamnosus (Culturelle) 1 cap BID PO Last administered on at 08:36; Start 12/20/17 at 12:00 Insulin Glargine (Lantus) 15 units QHS SQ Last administered on 12/20/17at 22:17 ; Start 12/20/17 at 21:00 Sodium Chloride 1,000 ml @ 1,000 mls/hr Q1H PRN IV hypotension; Start 12/20/17 at 12:07; Stop 12/20/17 at 18:06; Status DC Albumin Human 200 ml @ 200 mls/hr 1X PRN PRN IV Hypotension; Start 12/20/17 at 12:15; Stop 12/20/17 at 18:14; Status DC Acetaminophen (Tylenol) 500 mg 1X PRN PRN PO MILD PAIN / TEMP; Start 12/20/17 at 12:15; Stop 12/21/17 at 07:34; Status DC Diphenhydramine HCl (Benadryl) 25 mg 1X PRN PRN IV ITCHING; Start 12/20/17 at 12:15; Stop 12/21/17 at 12:14; Status Cancel Diphenhydramine HCl (Benadryl) 25 mg 1X PRN PRN IV ITCHING; Start 12/20/17 at 12:15; Stop 12/21/17 at 07:33; Status DC Labetalol HCl (Normodyne Iv Push) 10 mg PRN Q1HR PRN IVP SBP > 180; Start 12/20 at 12:15; Stop 12/21/17 at 12:14; Status DC Clonidine HCl (Catapres) 0.1 mg 1X PRN PRN PO SBP > 180; Start 12/20/17 at 12: 15; Stop 12/21/17 at 12:14; Status DC Sodium Chloride 1,000 ml @ 400 mls/hr Q2H30M PRN IV PATENCY; Start 12/20/17 at 12:07; Stop 12/21/17 at 00:06; Status DC Info (PHARMACY MONITORING -- do not chart) 1 each PRN DAILY PRN MC SEE COMMENTS ; Start 12/20/17 at 12:15 Info (PHARMACY MONITORING -- do not chart) 1 each PRN DAILY PRN MC SEE COMMENTS ; Start 12/20/17 at 12:15; Status UNV Acetaminophen (Tylenol) 650 mg PRN Q6HRS PRN PO FEVER; Start 12/20/17 at 12:45 Ondansetron HCl (Zofran) 4 mg PRN Q6HRS PRN IV NAUSEA/VOMITING; Start 12/20/17 at 12:45 Morphine Sulfate (Morphine Sulfate) 2 mg PRN Q2HR PRN IV MODERATE TO SEVERE PAIN; Start 12/20/17 at 12:45 Tramadol HCl (Ultram) 50 mg PRN Q6HRS PRN PO MILD TO MODERATE PAIN; Start 12/20 at 12:45; Stop 12/21/17 at 07:34; Status DC Docusate Sodium (Colace) 100 mg PRN DAILY PRN PO CONSTIPATION; Start 12/20/17 at 12:45 Heparin Sodium (Porcine) (Heparin Sq) 5,000 unit Q8HRS SQ Last administered on 12/21/17at 06:43; Start 12/20/17 at 14:00 Cefazolin Sodium 1 gm/Dextrose 50 ml @ 100 mls/hr DAILY IV ; Start 12/21/17 at 09:00; Status UNV Diphenhydramine HCl (Benadryl Oral Elixir) 12.5 mg PRN Q8HRS PRN PO ITCHING; Start 12/21/17 at 09:00 Cefazolin Sodium (Ancef) 1 gm Q24H IVP ; Start 12/21/17 at 09:30 Sodium Chloride 1,000 ml @ 1,000 mls/hr Q1H PRN IV hypotension; Start 12/21/17 at 09:18; Stop 12/21/17 at 15:17 Sodium Chloride 1,000 ml @ 400 mls/hr Q2H30M PRN IV PATENCY; Start 12/21/17 at 09:18; Stop 12/21/17 at 21:17 Info (PHARMACY MONITORING -- do not chart) 1 each PRN DAILY PRN MC SEE COMMENTS ; Start 12/21/17 at 09:30; Status UNV Info (PHARMACY MONITORING -- do not chart) 1 each PRN DAILY PRN MC SEE COMMENTS ; Start 12/21/17 at 09:30; Status UNV Lidocaine HCl (Xylocaine-Mpf 2% Vial) 2 ml STK-MED ONCE .ROUTE ; Start 12/21/17 at 09:51; Stop 12/21/17 at 09:52; Status DC Active Scripts Active Lidocaine 1 Each Adh..patch 1 Patch TD DAILY Percocet 10-325 Mg Tablet (Oxycodone/Acetaminophen) 1 Each Tablet 1 Tab PO Q4HRS Brilinta (Ticagrelor) 90 Mg Tablet 90 Mg PO BID 30 Days Morphine Sulfate Er (Morphine Sulfate) 15 Mg Tablet.er 15 Mg PO BID Reported Tramadol Hcl 50 Mg Tablet 50 Mg PO Q4HRS PRN [regranex] 1 Susanna TD DAILY Lantus Solostar (Insulin Glargine,Hum.rec.anlog) 100 Unit/1 Ml Insuln.pen 18 Unit SQ QHS Diflucan (Fluconazole) 100 Mg Tablet 100 Mg PO PRN Carvedilol 3.125 Mg Tablet 12.5 Mg PO BID Erythromycin (Erythromycin Base) 250 Mg Capsule.dr 250 Mg PO BID Cardizem Cd (Diltiazem Hcl) 180 Mg Cap.er.24h 120 Mg PO DAILY Amiodarone Hcl 200 Mg Tablet 1 Tab PO DAILY Ferric Citrate 210 Mg Tablet 210 Mg PO 3X/WEEK Nystatin 15 Gm Powder 1 Susanna TP PRN BID PRN Proventil Hfa Inhaler (Albuterol Sulfate) 6.7 Gm Hfa.aer.ad 2 Puff IH BID PRN Zofran (Ondansetron Hcl) 4 Mg Tablet 4 Mg PO Q6-8HRS PRN Nephro-Shabbir Tablet (Folic Acid/Vitamin B Comp W-C) 0.8 Mg Tablet 1 Tab PO DAILY Tricor (Fenofibrate Nanocrystallized) 145 Mg Tablet 1 Tab PO HS Lipitor (Atorvastatin Calcium) 80 Mg Tablet 80 Mg PO HS Niacin 500 Mg Tablet 500 Mg PO HS Novolog (Insulin Aspart) 100 Unit/1 Ml Cartridge 0 SQ TIDAC sliding scale Aspirin 325 Mg Tablet 325 Mg PO DAILY Furosemide 80 Mg Tablet 80 Mg PO BID Docusate Sodium 100 Mg Capsule 1 Cap PO PRN PRN Nitrostat (Nitroglycerin) 0.4 Mg Tab.subl 0.4 Mg SL PRN Q5MIN PRN Take as needed for chest pain Vitals/I & O Vital Sign - Last 24 Hours 12/20/17 12/20/17 12/20/17 12/20/17 15:09 16:47 16:47 19:00 Temp 98.9 98.9 Pulse 71 75 78 Resp 18 22 B/P (MAP) 125/71 (89) 131/57 133/63 (86) Pulse Ox 98 98 97 O2 Delivery Room Air Room Air Room Air 12/20/17 12/20/17 12/20/17 12/20/17 20:00 21:42 21:43 22:43 Resp 22 20 18 Pulse Ox 98 98 O2 Delivery Room Air Room Air Room Air 12/20/17 12/20/17 12/21/17 12/21/17 23:30 23:38 00:08 03:50 Temp 98.0 97.8 98.0 97.8 Pulse 76 75 Resp 20 20 20 20 B/P (MAP) 149/66 (93) 109/50 (69) Pulse Ox 99 98 97 O2 Delivery Room Air Room Air 12/21/17 12/21/17 12/21/17 12/21/17 06:35 07:00 07:04 08:00 Temp 98.1 98.1 Pulse 70 Resp 20 16 B/P (MAP) 126/59 (81) Pulse Ox 97 97 97 O2 Delivery Room Air Room Air Room Air Room Air 12/21/17 12/21/17 12/21/17 12/21/17 08:36 08:37 08:37 08:38 Pulse 70 70 70 B/P (MAP) 126/59 126/59 126/59 Pulse Ox 97 O2 Delivery Room Air 12/21/17 12/21/17 12/21/17 08:41 09:36 09:36 Pulse Ox 97 97 97 O2 Delivery Room Air Room Air Room Air Intake and Output 12/20/17 12/20/17 12/21/17 15:00 23:00 07:00 Intake Total 100 ml 100 ml 600 ml Balance 100 ml 100 ml 600 ml QUIN BARRY MD Dec 21, 2017 12:25
--- NOTE | 2017-12-21 13:22 | CONS ---
DATE OF CONSULTATION: 12/21/2017 REFERRING PHYSICIAN: Dr. Delgadillo. REASON FOR CONSULTATION: Right lower extremity cellulitis. HISTORY OF PRESENT ILLNESS: A 52-year-old female with history of end-stage renal disease, on hemodialysis through fistula, right upper extremity; diabetes mellitus; history of MSSA bacteremia; left calcaneal osteomyelitis with Citrobacter freundii; VRE and MSSA, status post BKA; diabetic neuropathy; coronary artery disease; hypertension; hyperlipidemia; COPD; asthma; fibromyalgia; GI bleed; peptic ulcer disease; right great toe diabetic ulcer with osteomyelitis with MSSA; nausea with gastroparesis; NUMEROUS ANTIBIOTIC ALLERGIES INCLUDING MEROPENEM AND PIPERACILLIN AND TAZOBACTAM CAUSING PEELING AND BLEEDING OF THE SKIN, SULFA AND CEFAZOLIN CAUSING ITCHING, though has tolerated cefazolin well during her past admission in 07/2016 and has tolerated Keflex, was admitted through ER on 12/19/2017 for abnormal lab values. The patient has been doing peritoneal dialysis at home. She was called by her orthotic/prosthetic practitioner's office to let her know that she needed to go to the Emergency Room for a very low calcium level. She had been fatigued for quite some time, had swelling and redness of the right lower extremity. She said that she bumped the medial aspect of her right lower extremity while she was undergoing ultrasound and also had scraped the dorsum of the right second toe against the wheelchair, subsequent to which she developed more redness and swelling. She also has pain over the skin breakdown on the medial aspect of the right lower extremity. The patient has been on clindamycin prior to admission and also was started on ciprofloxacin 5 days ago as she was diagnosed with UTI as an outpatient. U/A from 12/02/2017 shows wbc's 1-4 with small leukocyte esterase. White count was elevated on admission at 16,000; currently is 12.1. Blood cultures remain negative. The patient had ultrasound of the lower extremity done on 12/15/2017, which showed no evidence of acute DVT of the right lower extremity deep veins. Nonvascular ultrasound of the right lower extremity shows extensive subcutaneous edema; no masses identified. No discrete well-marginated fluid collection is seen to suggest a drainable abscess. Today, the patient denies any fevers or chills. Denies any nausea, vomiting or diarrhea. Still has some pain over the right lower extremity and states the swelling and the redness has not decreased since admission. She is requesting for IV antibiotics as she has fear of developing worsening wounds. She feels that the ulcer on the right second toe was from rubbing against her shoe. She also has some visual disturbance from possible rupture of small vessels in the past. PAST MEDICAL HISTORY: End-stage renal disease, on dialysis; MSSA bacteremia with left calcaneal osteo with Citrobacter freundii, VRE and MSSA, status post left BKA; diabetes mellitus; diabetic neuropathy; coronary artery disease; hypertension; hyperlipidemia; gastroparesis; COPD; asthma; fibromyalgia, status post coronary artery bypass graft; hysterectomy; left below knee amputation in 2015 and right second and third toe amputation. FAMILY HISTORY: Positive for hypertension and diabetes. SOCIAL HISTORY: Denies smoking, ETOH or illicit drug use. CURRENT MEDICATIONS: The patient was on clindamycin and now on ciprofloxacin, which has been there prior to admission, erythromycin for gastroparesis, acetaminophen, albumin, albuterol, amiodarone, Lipitor, calcium gluconate, carvedilol, clonidine, darbepoetin, diphenhydramine, fenofibrate, fentanyl, fluconazole, which has been discontinued, furosemide, insulin glargine, labetalol, linezolid, magnesium sulfate, morphine sulfate, nitroglycerin, Zofran and vitamin B complex. REVIEW OF SYSTEMS: Negative for above, except for HPI. ALLERGIES: MEROPENEM AND PIPERACILLIN AND TAZOBACTAM CAUSING BLEEDING RASH" DESCRIBED SKIN PEELING AND BLEEDING" SULFA, STRAWBERRIES AND FENTANYL. The patient has tolerated Keflex during her admission in 2017, has also tolerated cefazolin during that admission. PHYSICAL EXAMINATION: VITAL SIGNS: Temperature 98.1, pulse 70, respiratory rate 16, blood pressure 126/59 and oxygen saturation 97% on room air. GENERAL: Alert, oriented female sitting up in bed, in no acute distress. HEENT: Normocephalic, atraumatic. Anicteric. Oral mucosa moist, pink. No exudate. NECK: Supple. LUNGS: Clear to auscultation. HEART: S1, S2. No gallops or murmurs. ABDOMEN: Soft, nontender. EXTREMITIES: Previous left BKA unremarkable. Right lower extremity edema, warm redness, lower one-third skin breakdown on the medial aspect of the leg. Right upper extremity AV fistula. CENTRAL NERVOUS SYSTEM: Alert and oriented x 3. DERM: No rash. LABORATORY DATA: WBC 12.1, was 16.3; hemoglobin 9.7; hematocrit 28.7; platelets 406,000 and neutrophils 9.5. Sodium 132, potassium 4.2, chloride 95, bicarbonate 27, BUN 49, creatinine 5.9, glucose 206 and calcium 7.3. Lactate was 1.5. Calcium was 5.8 on admission. Phosphorus 10.4, ionized calcium 7.4, magnesium 1.9, alkaline phosphatase 111, total protein 2.2 and glucose 172. Dialysate fluid from 12/04/2017 negative. MRSA nasal screen negative. MICROBIOLOGY: Blood culture, 12/19/2017, negative. Peritoneal fluid negative. Urine culture, 12/02/2017, negative. IMAGING: Ultrasound of left lower extremity, 12/15/2017, negative for DVT. Nonvascular ultrasound, 12/20/2017, shows no abscess. Subcutaneous tissue suggestive of possible cellulitis. IMPRESSION: 1. Right lower extremity swelling with superficial skin breakdown from injury on 12/15/2017 with abrasion with subsequent redness and swelling, treated with outpatient clindamycin, now on linezolid, 2. history of infected diabetic foot ulcer with osteomyelitis of right great toe in the past, methicillin-sensitive Staphylococcus aureus, treated. 3. Right dorsal second toe skin breakdown from shoe abrasion, does not look infected at this time. 4. Left below-knee amputation from left calcaneal osteomyelitis in 2014. 5. End-stage renal disease, on dialysis. 6. Leukocytosis. 7. ANTIBIOTIC ALLERGY TO MEROPENEM, PIPERACILLIN AND TAZOBACTAM CAUSING PEELING AND BLEEDING OF THE SKIN. ALSO, SULFA. TOLERATES KEFLEX AND HAS BEEN ON CEFAZOLIN, THOUGH HAS CAUSED ITCHING. 8. History of recent urinary tract infection,on po cipro RECOMMENDATIONS: 1. Discontinue Cipro as ua here is negative. 2. Continue empiric linezolid. 3. Will start on cefazolin 1 gram IV every day (has tolerated) and Benadryl prn for itching. The patient says she has tolerated cefazolin without difficulty. NO skin bleeding or breakdown that she had with merrem and zosyn 4. Do not anticipate the patient requiring prolonged IV antibiotics. 5. The patient has been off fluconazole since 12/20/2017, which was started prior to admission. 6. The patient remains on erythromycin for gastroparesis. 7. Continue supportive care. Thank you for consulting Infectious Disease to participate in this patient's care. If you have any questions, do not hesitate to contact us. GRACIELA LÓPEZ MD DR: BASIA/guillermo JOB#: [id number] / [id number] VERENA
[2017-12-21] MEDS ORDERED: CARB200T PO (13:34)
[2017-12-21] MEDS: ceFAZolin SODIUM IV Push 1 GM VIAL. IVP SCH (14:21)
[2017-12-21] MEDS: carBAMazepine 200 MG TABLET PO SCH ×2 (14:21→20:05)
[2017-12-21] MEDS: NIACIN ER 500 MG TABLET.ER PO SCH (17:21)
[2017-12-21] MEDS: ATORVASTATIN CALCIUM 40 MG TABLET. PO SCH (20:04)
[2017-12-21] MEDS: FENOFIBRATE,MICRONIZED 134 MG CAPSULE PO SCH (20:04)
[2017-12-21] MEDS: INSULIN GLARGINE 300 UNITS/3 ML INSULN.PEN. SQ SCH (20:12)
[2017-12-22 03:00] VITALS: BP 122/64
[2017-12-22] MEDS: MORPHINE SULFATE 2 MG/ML VIAL. IV PRN ×4 (04:12→22:53)
[2017-12-22 05:20] LABS: ALBUMIN 2.4 g/dL (3.4-5.0); CALCIUM 8.2 mg/dL (8.5-10.1); CREATININE 4.1 mg/dL (0.6-1.0); GFR 11.4; PHOSPHORUS 6.3 mg/dL (2.6-4.7); POTASSIUM 4.3 mmol/L (3.5-5.1)
[2017-12-22] MEDS: diphenhydrAMINE ORAL ELIXIR 12.5 MG/5 ML ML PO PRN ×2 (05:40→22:10)
[2017-12-22] MEDS: HEPARIN PF for SUB-Q USE 5,000 UNIT/0.5 ML VIAL. SQ SCH ×3 (05:42→22:00)
[2017-12-22] MEDS: INSULIN LISPRO 300 UNITS/3 ML INSULN.PEN. SQ SCH ×6 (07:30→17:00)
[2017-12-22 07:44] VITALS: BP 130/59
[2017-12-22] MEDS: FUROSEMIDE 80 MG TABLET. PO SCH ×2 (08:10→17:13)
[2017-12-22] MEDS: LIDOCAINE (700MG/PATCH) PATCH. TD SCH (08:21)
--- NOTE | 2017-12-22 09:39 | PDOC ---
Infectious Disease Note Subjective: Subjective pt seen in dialysis unit says feels better RLE swelling and discomfort at area of abrasion improving no f/c/n/v/d had some itching but improved with benadryl ROS: ROS Negative except for above. no f/c/n/v/d Vital Signs: Vital Signs Vital Signs Date Time Temp Pulse Resp B/P (MAP) Pulse Ox O2 Delivery O2 Flow Rate FiO2 12/22/17 08:10 14 95 12/22/17 07:44 98.1 78 130/59 (82) Room Air 98.1 Physical Exam: PHYSICAL EXAM rt leg is red and swollen with a small open wound at medial aspect. Medications: Inpatient Meds: Current Medications Medications (Trade) Dose Ordered Sig/Martin Start Time Stop Time Status Last Admin Dose Admin Acetaminophen (Tylenol) 650 mg PRN Q6HRS PRN 12/20/17 12:45 Albumin Human 200 ml @ 200 mls/hr 1X PRN PRN 12/20/17 12:15 12/20/17 18:14 DC Albuterol Sulfate (Ventolin Neb Soln) 2.5 mg PRN BID PRN 12/20/17 02:45 Amiodarone HCl (Cordarone) 200 mg DAILY 12/20/17 09:00 12/21/17 08:37 200 MG Atorvastatin Calcium (Lipitor) 80 mg HS 12/20/17 21:00 12/21/17 20:04 80 MG Calcium Gluconate (Calcium Gluconate) 1,000 mg 1X ONCE 12/20/17 06:00 12/20/17 06:01 UNV Calcium Gluconate 1000 mg/Dextrose 110 ml @ 220 mls/hr 1X ONCE 12/20/17 06:15 12/20/17 06:44 DC 12/20/17 06:21 220 MLS/HR Carbamazepine (TEGretol) 200 mg BID 12/21/17 14:00 12/21/17 20:05 200 MG Carvedilol (Coreg) 12.5 mg BIDWMEALS 12/20/17 08:00 12/21/17 17:22 12.5 MG Cefazolin Sodium (Ancef) 1 gm Q24H 12/21/17 09:30 12/21/17 14:21 1 GM Cefazolin Sodium 1 gm/Dextrose 50 ml @ 100 mls/hr DAILY 12/21/17 09:00 UNV Ciprofloxacin (Cipro) 500 mg Q24H 12/21/17 07:00 12/21/17 08:54 DC 12/21/17 06:36 500 MG Clindamycin HCl (Cleocin) 150 mg TID 12/20/17 09:00 12/20/17 09:08 DC 12/20/17 08:42 150 MG Clonidine HCl (Catapres) 0.1 mg 1X PRN PRN 12/20/17 12:15 12/21/17 12:14 DC Darbepoetin Mauricio (Aranesp) 60 mcg WEEKLYHS 12/20/17 21:00 12/20/17 23:22 60 MCG Dextrose (Dextrose 50%-Water Syringe) 12.5 gm PRN Q15MIN PRN 12/20/17 08:45 Diltiazem HCl (Cardizem 24hr Cd) 120 mg DAILY 12/20/17 09:00 12/21/17 08:36 120 MG Diphenhydramine HCl (Benadryl Oral Elixir) 12.5 mg PRN Q8HRS PRN 12/21/17 09:00 12/22/17 05:40 12.5 MG Diphenhydramine HCl (Benadryl) 25 mg 1X PRN PRN 12/20/17 12:15 12/21/17 07:33 DC Docusate Sodium (Colace) 100 mg PRN DAILY PRN 12/20/17 12:45 Erythromycin (E-Mycin) 250 mg BID 12/20/17 09:00 12/21/17 20:04 250 MG Fenofibrate (Lofibra) 134 mg HS 12/20/17 21:00 12/21/17 20:04 134 MG Fentanyl Citrate (Fentanyl 2ml Vial) 50 mcg PRN Q2HR PRN 12/19/17 21:45 12/20/17 10:00 DC Fluconazole (Diflucan) 100 mg PRN DAILY PRN 12/20/17 00:30 12/20/17 11:34 DC Furosemide (Lasix) 80 mg [id number] 12/20/17 09:00 12/21/17 17:21 80 MG Heparin Sodium (Porcine) (Heparin Sq) 5,000 unit Q8HRS 12/20/17 14:00 12/21/17 14:33 5,000 UNIT Info (PHARMACY MONITORING -- do not chart) 1 each PRN DAILY PRN 12/21/17 09:30 UNV Insulin Glargine (Lantus) 15 units QHS 12/20/17 21:00 12/20/17 22:17 15 UNITS Insulin Human Lispro (HumaLOG) 10 units TIDAC 12/20/17 11:30 12/20/17 08:46 5 UNITS Labetalol HCl (Normodyne Iv Push) 10 mg PRN Q1HR PRN 12/20/17 12:15 12/21/17 12:14 DC Lactobacillus Rhamnosus (Culturelle) 1 cap BID 12/20/17 12:00 12/21/17 20:03 1 CAP Lidocaine (Lidoderm) 1 patch DAILY 12/20/17 09:00 12/21/17 08:42 1 PATCH Lidocaine HCl (Xylocaine-Mpf 2% Vial) 2 ml STK-MED ONCE 12/21/17 09:51 12/21/17 09:52 DC Linezolid (Zyvox) 600 mg BID 12/20/17 11:00 12/21/17 20:05 600 MG Magnesium Sulfate 50 ml @ 25 mls/hr PRN DAILY PRN 12/20/17 09:30 Morphine Sulfate (Morphine Sulfate) 2 mg PRN Q2HR PRN 12/20/17 12:45 Morphine Sulfate (Ms Contin) 15 mg BID 12/20/17 09:00 12/21/17 20:05 15 MG Niacin (Slo-Niacin) 500 mg QEVNG 12/20/17 18:00 12/21/17 17:21 500 MG Nitroglycerin (Nitrostat) 0.4 mg PRN Q5MIN PRN 12/20/17 00:30 Non-Formulary Medication (Albuterol Sulfate (Proventil Hfa Inhaler)) 2 puff BID PRN 12/20/17 00:30 UNV Non-Formulary Medication (Ferric Citrate ) 210 mg 3X/WEEK 12/21/17 09:00 12/22/17 07:20 DC Non-Formulary Medication ([regranex] ) 1 erich DAILY 12/20/17 09:00 12/22/17 07:20 DC Nystatin (Nystatin Oral Susp) 5 ml [id number] 12/20/17 13:00 12/21/17 14:11 DC Nystatin (Nystop) 1 erich PRN BID PRN 12/20/17 00:30 Ondansetron HCl (Zofran Odt) 4 mg PRN Q6HRS PRN 12/20/17 00:30 12/21/17 06:34 4 MG Ondansetron HCl (Zofran) 4 mg PRN Q6HRS PRN 12/20/17 12:45 Oxycodone/ Acetaminophen (Percocet 10/325) 1 tab PRN Q4HRS PRN 12/20/17 02:00 12/21/17 06:35 1 TAB Oxycodone/ Acetaminophen (Percocet 5/325) 1 tab 1X ONCE 12/19/17 20:45 12/19/17 20:46 DC 12/19/17 20:51 1 TAB Sodium Chloride 1,000 ml @ 400 mls/hr Q2H30M PRN 12/21/17 09:18 12/21/17 23:47 DC Ticagrelor (Brilinta) 90 mg BID 12/20/17 09:00 12/21/17 20:04 90 MG Tramadol HCl (Ultram) 50 mg PRN Q6HRS PRN 12/20/17 12:45 12/21/17 07:34 DC Vitamin B Complex/ Vitamin C (Melly-Shabbir) 1 tab DAILY 12/20/17 09:00 12/21/17 08:36 1 TAB Labs: Lab Laboratory Tests Test 12/21/17 14:14 12/21/17 16:50 12/21/17 20:10 12/22/17 04:45 Glucose (Fingerstick) 203 mg/dL (70-99) 189 mg/dL (70-99) 75 mg/dL (70-99) Sodium Level 136 mmol/L (136-145) Potassium Level 4.3 mmol/L (3.5-5.1) Chloride Level 98 mmol/L (98-107) Carbon Dioxide Level 32 mmol/L (21-32) Anion Gap 6 (6-14) Blood Urea Nitrogen 29 mg/dL (7-20) Creatinine 4.1 mg/dL (0.6-1.0) Estimated GFR (Cockcroft-Gault) 11.4 Glucose Level 140 mg/dL (70-99) Calcium Level 8.2 mg/dL (8.5-10.1) Phosphorus Level 6.3 mg/dL (2.6-4.7) Magnesium Level 2.0 mg/dL (1.8-2.4) Creatine Kinase 76 U/L (26-192) Albumin 2.4 g/dL (3.4-5.0) Test 12/22/17 08:07 Glucose (Fingerstick) 141 mg/dL (70-99) Objective: Assessment: 1. Right lower extremity swelling with superficial skin breakdown from injury on 12/15/2017 with abrasion and , with subsequent redness and swelling, treated with outpatient clindamycin, now on linezolid, 2. history of infected diabetic foot ulcer with osteomyelitis of right great toe in the past, methicillin-sensitive Staphylococcus aureus in the past 2. Right dorsal second toe skin breakdown from shoe abrasion, does not look infected at this time. 3. Left below-knee amputation from left calcaneal osteomyelitis in 2014. 4. End-stage renal disease, on dialysis. 5. Leukocytosis. 6. ANTIBIOTIC ALLERGY TO MEROPENEM, PIPERACILLIN AND TAZOBACTAM CAUSING PEELING AND BLEEDING OF THE SKIN. ALSO, SULFA. TOLERATES KEFLEX AND HAS BEEN ON CEFAZOLIN, THOUGH HAS CAUSED ITCHING. 7. History of recent urinary tract infection, though urine cultures are negative, on Cipro POA for 5 days. Plan: Plan of Care cont cefazolin 1 gram IV every day (has tolerated) and Benadryl as needed for itching when ready for dc home,transition to keflex ( which she has tolerated well in the past) 500 mg po bid for 10 days optimal edema control probiotics elevate leg GRACIELA LÓPEZ MD Dec 22, 2017 09:39
[2017-12-22] MEDS ORDERED: IV NORMAL SALINE 1000ML BAG 1,000 ML IV PRN (10:18)
--- NOTE | 2017-12-22 10:21 | PDOC ---
Renal-Progress Notes Subjective Notes Notes NO NEW COMPLAINTS History of Present Illness Hx of present illness STABLE Vitals Vitals Vital Signs Date Time Temp Pulse Resp B/P (MAP) Pulse Ox O2 Delivery O2 Flow Rate FiO2 12/22/17 08:10 14 95 12/22/17 07:44 98.1 78 130/59 (82) Room Air 98.1 Weight Weight [ ] I.O. Intake and Output Intake and Output 12/22/17 07:00 Intake Total 1300 ml Balance 1300 ml Intake Oral 1300 ml Labs Labs Laboratory Tests Test 12/21/17 14:14 12/21/17 16:50 12/21/17 20:10 12/22/17 04:45 Glucose (Fingerstick) 203 mg/dL (70-99) 189 mg/dL (70-99) 75 mg/dL (70-99) Sodium Level 136 mmol/L (136-145) Potassium Level 4.3 mmol/L (3.5-5.1) Chloride Level 98 mmol/L (98-107) Carbon Dioxide Level 32 mmol/L (21-32) Anion Gap 6 (6-14) Blood Urea Nitrogen 29 mg/dL (7-20) Creatinine 4.1 mg/dL (0.6-1.0) Estimated GFR (Cockcroft-Gault) 11.4 Glucose Level 140 mg/dL (70-99) Calcium Level 8.2 mg/dL (8.5-10.1) Phosphorus Level 6.3 mg/dL (2.6-4.7) Magnesium Level 2.0 mg/dL (1.8-2.4) Creatine Kinase 76 U/L (26-192) Albumin 2.4 g/dL (3.4-5.0) Test 12/22/17 08:07 Glucose (Fingerstick) 141 mg/dL (70-99) Micro Micro Microbiology 12/19/17 Blood Culture - Preliminary, Resulted NO GROWTH AFTER 2 DAYS Review of Systems Constitutional: yes: no symptom reported Ears/Nose/Throat: Yes: no symptom reported Eyes: Yes: no symptom reported Pulmonary: Yes no symptom reported Cardiovascular: Yes no symptom reported Gastrointestional: Yes: no symptom reported Genitourinary: Yes: no symptom reported Musculoskeletal: Yes: no symptom reported Skin: Yes no symptom reported Psychiatric/Neurological: Yes: no symptom reported Endocrine: Yes: no symptom reported Physical Exam General Appearance: no apparent distress Respiratory: bilateral CTA Heart: S1S2 Abdomen: soft, bowel sounds present Genitourinary: bladder flat Extremities: pulses present Neurology: alert, oriented Assessment Assessment IMP ESRD ANEMIA DM II HTN R LE CELLULITIS PLAN HD AGAIN TODAY UF TO DW ANTIBIOTICS WILL DO PD WHEN SHE GOES HOME CHARLY ZAVALA MD Dec 22, 2017 10:21
[2017-12-22] MEDS ORDERED: DIALYSIS PATIENT. MC PRN ×2 (10:30)
--- NOTE | 2017-12-22 12:18 | PDOC ---
PROGRESS NOTES Chief Complaint Chief Complaint hypocalcemia on PD ESRD on PD rt leg cellulitis h/o CAD WITH 8 stents. CABG h/o VRE, MRSA, ALlergic to zosyn, meropenum dm2 on insulin left leg BKA chronic back pain plan: fu with renal, need HD today PD held home meds, slightly decrease insulin, ssi, refused novolog dc clinda, add zyvox, dc cipro. rt leg US ID consulted, add diflucan and cefazolin got 2g Calcium in icu wound care consult dvt ppx home on keflex 500mg po bid x 10 days pain management consult History of Present Illness History of Present Illness ROS: no fever, chills, sob or chest pain rt leg pain worse, US no abscess seems ok to take keflex and cefazolin before Ca better with HD and repletion Vitals Vitals Vital Signs Date Time Temp Pulse Resp B/P (MAP) Pulse Ox O2 Delivery O2 Flow Rate FiO2 12/22/17 08:10 14 95 12/22/17 07:44 98.1 78 130/59 (82) Room Air 98.1 Physical Exam Physical Exam rt leg is red and swollen with a small open wound , medial aspect. General: Alert, Oriented X3, Cooperative, No acute distress Heart: Regular rate, Normal S1, Normal S2 Lungs: Clear Abdomen: Normal bowel sounds, Soft, No tenderness Extremities: No clubbing, No cyanosis, Normal pulses, Other (soft tissue swelling, see pictures) Skin: No rashes Labs LABS STATUS: ADM IN ORD. PHYSICIAN: QUIN BARRY MD REASON: rt leg cellulitis, rule out abscess PROCEDURE: EXT NON VASC RIGHT Right lower leg ultrasound, 12/20/2017: HISTORY: Cellulitis, possible abscess The area of of clinical concern in the right calf was carefully scanned. There is extensive subcutaneous edema. No mass is identified. No discrete, well marginated fluid collection is seen to suggest a drainable abscess. Electronically signed by: Ronald Levy MD (12/21/2017 7:33 AM) [facility] PATIENT: JAMAL BOSE ACCT: [id number] LOC: [address] [place] [address] U : [id number] AGE/SX: 52/F ROOM: 203 REG : 12/19/[address]: QUIN BARRY MD : [id number] BED: 1 DIS : STATUS: ADM IN TLOC: SPEC #: [id number] [place]: 12/19/17 STATUS: RES REQ #: [id number] RECD: 12/19/[address] [facility] [address]: LENNIE STEEN APRN SOURCE: BLOOD ENTR: 12/19/[address]: MAGDA ARROYO MD [facility]: ORDERED: BCULT Procedure Result BLOOD CULTURE Preliminary NO GROWTH AFTER 2 DAYS Laboratory Tests Test 12/21/17 14:14 12/21/17 16:50 12/21/17 20:10 12/22/17 04:45 Glucose (Fingerstick) 203 mg/dL (70-99) 189 mg/dL (70-99) 75 mg/dL (70-99) Sodium Level 136 mmol/L (136-145) Potassium Level 4.3 mmol/L (3.5-5.1) Chloride Level 98 mmol/L (98-107) Carbon Dioxide Level 32 mmol/L (21-32) Anion Gap 6 (6-14) Blood Urea Nitrogen 29 mg/dL (7-20) Creatinine 4.1 mg/dL (0.6-1.0) Estimated GFR (Cockcroft-Gault) 11.4 Glucose Level 140 mg/dL (70-99) Calcium Level 8.2 mg/dL (8.5-10.1) Phosphorus Level 6.3 mg/dL (2.6-4.7) Magnesium Level 2.0 mg/dL (1.8-2.4) Creatine Kinase 76 U/L (26-192) Albumin 2.4 g/dL (3.4-5.0) Test 12/22/17 08:07 Glucose (Fingerstick) 141 mg/dL (70-99) Assessment and Plan Assessmemt and Plan Problems Medical Problems: (1) End-stage renal disease on hemodialysis Status: Acute (2) Hypocalcemia Status: Acute Comment Review of Relevant I have reviewed the following items bert (where applicable) has been applied. Labs Laboratory Tests Test 12/20/17 16:49 12/20/17 21:54 12/21/17 06:14 12/21/17 08:35 Glucose (Fingerstick) 224 mg/dL (70-99) 237 mg/dL (70-99) 172 mg/dL (70-99) White Blood Count 12.1 x10^3/uL (4.0-11.0) Red Blood Count 3.12 x10^6/uL (3.50-5.40) Hemoglobin 9.7 g/dL (12.0-15.5) Hematocrit 28.7 % (36.0-47.0) Mean Corpuscular Volume 92 fL (79-100) Mean Corpuscular Hemoglobin 31 pg (25-35) Mean Corpuscular Hemoglobin Concent 34 g/dL (31-37) Red Cell Distribution Width 13.7 % (11.5-14.5) Platelet Count 406 x10^3/uL (140-400) Neutrophils (%) (Auto) 79 % (31-73) Lymphocytes (%) (Auto) 8 % (24-48) Monocytes (%) (Auto) 10 % (0-9) Eosinophils (%) (Auto) 3 % (0-3) Basophils (%) (Auto) 1 % (0-3) Neutrophils # (Auto) 9.5 x10^3uL (1.8-7.7) Lymphocytes # (Auto) 1.0 x10^3/uL (1.0-4.8) Monocytes # (Auto) 1.2 x10^3/uL (0.0-1.1) Eosinophils # (Auto) 0.4 x10^3/uL (0.0-0.7) Basophils # (Auto) 0.1 x10^3/uL (0.0-0.2) Sodium Level 132 mmol/L (136-145) Potassium Level 4.2 mmol/L (3.5-5.1) Chloride Level 95 mmol/L (98-107) Carbon Dioxide Level 27 mmol/L (21-32) Anion Gap 10 (6-14) Blood Urea Nitrogen 49 mg/dL (7-20) Creatinine 5.9 mg/dL (0.6-1.0) Estimated GFR (Cockcroft-Gault) 7.5 Glucose Level 206 mg/dL (70-99) Calcium Level 7.3 mg/dL (8.5-10.1) Phosphorus Level 7.4 mg/dL (2.6-4.7) Magnesium Level 1.9 mg/dL (1.8-2.4) Creatine Kinase 111 U/L (26-192) Albumin 2.2 g/dL (3.4-5.0) Test 12/21/17 14:14 12/21/17 16:50 12/21/17 20:10 12/22/17 04:45 Glucose (Fingerstick) 203 mg/dL (70-99) 189 mg/dL (70-99) 75 mg/dL (70-99) Sodium Level 136 mmol/L (136-145) Potassium Level 4.3 mmol/L (3.5-5.1) Chloride Level 98 mmol/L (98-107) Carbon Dioxide Level 32 mmol/L (21-32) Anion Gap 6 (6-14) Blood Urea Nitrogen 29 mg/dL (7-20) Creatinine 4.1 mg/dL (0.6-1.0) Estimated GFR (Cockcroft-Gault) 11.4 Glucose Level 140 mg/dL (70-99) Calcium Level 8.2 mg/dL (8.5-10.1) Phosphorus Level 6.3 mg/dL (2.6-4.7) Magnesium Level 2.0 mg/dL (1.8-2.4) Creatine Kinase 76 U/L (26-192) Albumin 2.4 g/dL (3.4-5.0) Test 12/22/17 08:07 Glucose (Fingerstick) 141 mg/dL (70-99) Laboratory Tests Test 12/21/17 14:14 12/21/17 16:50 12/21/17 20:10 12/22/17 04:45 Glucose (Fingerstick) 203 mg/dL (70-99) 189 mg/dL (70-99) 75 mg/dL (70-99) Sodium Level 136 mmol/L (136-145) Potassium Level 4.3 mmol/L (3.5-5.1) Chloride Level 98 mmol/L (98-107) Carbon Dioxide Level 32 mmol/L (21-32) Anion Gap 6 (6-14) Blood Urea Nitrogen 29 mg/dL (7-20) Creatinine 4.1 mg/dL (0.6-1.0) Estimated GFR (Cockcroft-Gault) 11.4 Glucose Level 140 mg/dL (70-99) Calcium Level 8.2 mg/dL (8.5-10.1) Phosphorus Level 6.3 mg/dL (2.6-4.7) Magnesium Level 2.0 mg/dL (1.8-2.4) Creatine Kinase 76 U/L (26-192) Albumin 2.4 g/dL (3.4-5.0) Test 12/22/17 08:07 Glucose (Fingerstick) 141 mg/dL (70-99) Microbiology 12/19/17 Blood Culture - Preliminary, Resulted NO GROWTH AFTER 2 DAYS Medications Current Medications Oxycodone/ Acetaminophen (Percocet 5/325) 1 tab 1X ONCE PO Last administered on 12/19/17at 20:51; Start 12/19/17 at 20:45; Stop 12/19/17 at 20:46; Status DC Calcium Gluconate (Calcium Gluconate) 1,000 mg 1X ONCE IVP Last administered on 12/19/17at 22:07; Start 12/19/17 at 21:30; Stop 12/19/17 at 21:31; Status DC Ondansetron HCl (Zofran) 4 mg PRN Q8HRS PRN IV NAUSEA/VOMITING; Start 12/19/17 at 21:45; Stop 12/20/17 at 21:44; Status DC Fentanyl Citrate (Fentanyl 2ml Vial) 50 mcg PRN Q2HR PRN IV PAIN; Start at 21:45; Stop 12/20/17 at 10:00; Status DC Morphine Sulfate (Morphine Sulfate) 2 mg PRN Q2HR PRN IV PAIN Last administered on 12/22/17at 08:10; Start 12/20/17 at 00:30 Amiodarone HCl (Cordarone) 200 mg DAILY PO Last administered on 12/21/17at 08:37 ; Start 12/20/17 at 09:00 Carvedilol (Coreg) 12.5 mg BIDWMEALS PO Last administered on 12/21/17at 17:22; Start 12/20/17 at 08:00 Vitamin B Complex/ Vitamin C (Melly-Shabbir) 1 tab DAILY PO Last administered on at 08:36; Start 12/20/17 at 09:00 Furosemide (Lasix) 80 mg [id number] PO Last administered on 12/21/17at 17:21; Start 12/20/17 at 09:00 Insulin Glargine (Lantus) 18 units QHS SQ ; Start 12/20/17 at 21:00; Stop at 21:00; Status DC Morphine Sulfate (Ms Contin) 15 mg BID PO Last administered on 12/21/17at 20:05 ; Start 12/20/17 at 09:00 Nitroglycerin (Nitrostat) 0.4 mg PRN Q5MIN PRN SL CHEST PAIN; Start 12/20/17 at 00:30 Nystatin (Nystop) 1 susanna PRN BID PRN TP SKIN BREAKDOWN; Start 12/20/17 at 00:30 Oxycodone/ Acetaminophen (Percocet 10/325) 1 tab Q4HRS PO ; Start 12/20/17 at 04 :00; Status Cancel Ticagrelor (Brilinta) 90 mg BID PO Last administered on 12/21/17at 20:04; Start 12/20/17 at 09:00 Tramadol HCl (Ultram) 50 mg PRN Q4HRS PRN PO HEADACHE, MILD PAIN; Start at 00:30 Non-Formulary Medication (Albuterol Sulfate (Proventil Hfa Inhaler)) 2 puff BID PRN IH FOR ASTHMA; Start 12/20/17 at 00:30; Status UNV Atorvastatin Calcium (Lipitor) 80 mg HS PO Last administered on 12/21/17at 20:04 ; Start 12/20/17 at 21:00 Diltiazem HCl (Cardizem 24hr Cd) 120 mg DAILY PO Last administered on at 08:36; Start 12/20/17 at 09:00 Erythromycin (E-Mycin) 250 mg BID PO Last administered on 12/21/17at 20:04; Start 12/20/17 at 09:00 Fenofibrate (Lofibra) 134 mg HS PO Last administered on 12/21/17at 20:04; Start 12/20/17 at 21:00 Non-Formulary Medication (Ferric Citrate ) 210 mg 3X/WEEK PO ; Start 12/21/17 at 09:00; Stop 12/22/17 at 07:20; Status DC Fluconazole (Diflucan) 100 mg PRN DAILY PRN PO YEAST INFECTION; Start 12/20/17 at 00:30; Stop 12/20/17 at 11:34; Status DC Lidocaine (Lidoderm) 1 patch DAILY TD Last administered on 12/21/17at 08:42; Start 12/20/17 at 09:00 Niacin (Slo-Niacin) 500 mg QEVNG PO Last administered on 12/21/17at 17:21; Start 12/20/17 at 18:00 Ondansetron HCl (Zofran Odt) 4 mg PRN Q6HRS PRN PO NAUSEA/VOMITING Last administered on 12/21/17at 06:34; Start 12/20/17 at 00:30 Non-Formulary Medication ([regranex] ) 1 susanna DAILY TD ; Start 12/20/17 at 09:00 ; Stop 12/22/17 at 07:20; Status DC Ciprofloxacin (Cipro) 500 mg [id number] PO Last administered on 12/20/17at 06:21; Start 12/20/17 at 07:00; Stop 12/20/17 at 10:32; Status DC Clindamycin HCl (Cleocin) 150 mg TID PO Last administered on 12/20/17at 08:42; Start 12/20/17 at 09:00; Stop 12/20/17 at 09:08; Status DC Oxycodone/ Acetaminophen (Percocet 10/325) 1 tab PRN Q4HRS PRN PO MODERATE PAIN Last administered on 12/21/17at 06:35; Start 12/20/17 at 02:00 Albuterol Sulfate (Ventolin Neb Soln) 2.5 mg PRN BID PRN NEB SHORTNESS OF BREATH; Start 12/20/17 at 02:45 Calcium Gluconate (Calcium Gluconate) 1,000 mg 1X ONCE IVP ; Start 12/20/17 at 06:00; Stop 12/20/17 at 06:01; Status UNV Calcium Gluconate 1000 mg/Dextrose 110 ml @ 220 mls/hr 1X ONCE IV Last administered on 12/20/17at 06:21; Start 12/20/17 at 06:15; Stop 12/20/17 at 06:44 ; Status DC Insulin Human Lispro (HumaLOG) 0-9 UNITS TIDWMEALS SQ Last administered on 12/21at 17:26; Start 12/20/17 at 12:00 Dextrose (Dextrose 50%-Water Syringe) 12.5 gm PRN Q15MIN PRN IV SEE COMMENTS; Start 12/20/17 at 08:45 Insulin Human Lispro (HumaLOG) 10 units TIDAC SQ Last administered on at 08:46; Start 12/20/17 at 11:30 Linezolid (Zyvox) 600 mg BID PO Last administered on 12/21/17at 20:05; Start at 11:00 Nystatin (Nystatin Oral Susp) 5 ml [id number] ; Start 12/20/17 at 13:00; Stop 12/21/17 at 14:11; Status DC Darbepoetin Mauricio (Aranesp) 60 mcg [id number] SQ Last administered on 12/20/17at 23 :22; Start 12/20/17 at 21:00 Magnesium Sulfate 50 ml @ 25 mls/hr PRN DAILY PRN IV for Mag < 1.7 on am labs; Start 12/20/17 at 09:30 Ciprofloxacin (Cipro) 500 mg Q24H PO Last administered on 12/21/17at 06:36; Start 12/21/17 at 07:00; Stop 12/21/17 at 08:54; Status DC Lactobacillus Rhamnosus (Culturelle) 1 cap BID PO Last administered on at 20:03; Start 12/20/17 at 12:00 Insulin Glargine (Lantus) 15 units QHS SQ Last administered on 12/20/17at 22:17 ; Start 12/20/17 at 21:00 Sodium Chloride 1,000 ml @ 1,000 mls/hr Q1H PRN IV hypotension; Start 12/20/17 at 12:07; Stop 12/20/17 at 18:06; Status DC Albumin Human 200 ml @ 200 mls/hr 1X PRN PRN IV Hypotension; Start 12/20/17 at 12:15; Stop 12/20/17 at 18:14; Status DC Acetaminophen (Tylenol) 500 mg 1X PRN PRN PO MILD PAIN / TEMP; Start 12/20/17 at 12:15; Stop 12/21/17 at 07:34; Status DC Diphenhydramine HCl (Benadryl) 25 mg 1X PRN PRN IV ITCHING; Start 12/20/17 at 12:15; Stop 12/21/17 at 12:14; Status Cancel Diphenhydramine HCl (Benadryl) 25 mg 1X PRN PRN IV ITCHING; Start 12/20/17 at 12:15; Stop 12/21/17 at 07:33; Status DC Labetalol HCl (Normodyne Iv Push) 10 mg PRN Q1HR PRN IVP SBP > 180; Start 12/20 at 12:15; Stop 12/21/17 at 12:14; Status DC Clonidine HCl (Catapres) 0.1 mg 1X PRN PRN PO SBP > 180; Start 12/20/17 at 12: 15; Stop 12/21/17 at 12:14; Status DC Sodium Chloride 1,000 ml @ 400 mls/hr Q2H30M PRN IV PATENCY; Start 12/20/17 at 12:07; Stop 12/21/17 at 00:06; Status DC Info (PHARMACY MONITORING -- do not chart) 1 each PRN DAILY PRN MC SEE COMMENTS ; Start 12/20/17 at 12:15 Info (PHARMACY MONITORING -- do not chart) 1 each PRN DAILY PRN MC SEE COMMENTS ; Start 12/20/17 at 12:15; Status UNV Acetaminophen (Tylenol) 650 mg PRN Q6HRS PRN PO FEVER; Start 12/20/17 at 12:45 Ondansetron HCl (Zofran) 4 mg PRN Q6HRS PRN IV NAUSEA/VOMITING; Start 12/20/17 at 12:45 Morphine Sulfate (Morphine Sulfate) 2 mg PRN Q2HR PRN IV MODERATE TO SEVERE PAIN; Start 12/20/17 at 12:45 Tramadol HCl (Ultram) 50 mg PRN Q6HRS PRN PO MILD TO MODERATE PAIN; Start 12/20 at 12:45; Stop 12/21/17 at 07:34; Status DC Docusate Sodium (Colace) 100 mg PRN DAILY PRN PO CONSTIPATION; Start 12/20/17 at 12:45 Heparin Sodium (Porcine) (Heparin Sq) 5,000 unit Q8HRS SQ Last administered on 12/21/17at 14:33; Start 12/20/17 at 14:00 Cefazolin Sodium 1 gm/Dextrose 50 ml @ 100 mls/hr DAILY IV ; Start 12/21/17 at 09:00; Status UNV Diphenhydramine HCl (Benadryl Oral Elixir) 12.5 mg PRN Q8HRS PRN PO ITCHING Last administered on 12/22/17at 05:40; Start 12/21/17 at 09:00 Cefazolin Sodium (Ancef) 1 gm Q24H IVP Last administered on 12/21/17at 14:21; Start 12/21/17 at 09:30 Sodium Chloride 1,000 ml @ 1,000 mls/hr Q1H PRN IV hypotension; Start 12/21/17 at 09:18; Stop 12/21/17 at 15:17; Status DC Sodium Chloride 1,000 ml @ 400 mls/hr Q2H30M PRN IV PATENCY; Start 12/21/17 at 09:18; Stop 12/21/17 at 23:47; Status DC Info (PHARMACY MONITORING -- do not chart) 1 each PRN DAILY PRN MC SEE COMMENTS ; Start 12/21/17 at 09:30; Status UNV Info (PHARMACY MONITORING -- do not chart) 1 each PRN DAILY PRN MC SEE COMMENTS ; Start 12/21/17 at 09:30; Status UNV Lidocaine HCl (Xylocaine-Mpf 2% Vial) 2 ml STK-MED ONCE .ROUTE ; Start 12/21/17 at 09:51; Stop 12/21/17 at 09:52; Status DC Carbamazepine (TEGretol) 200 mg BID PO Last administered on 12/21/17at 20:05; Start 12/21/17 at 14:00 Sodium Chloride 1,000 ml @ 1,000 mls/hr Q1H PRN IV hypotension; Start 12/22/17 at 10:18; Stop 12/22/17 at 16:17 Info (PHARMACY MONITORING -- do not chart) 1 each PRN DAILY PRN MC SEE COMMENTS ; Start 12/22/17 at 10:30; Status UNV Info (PHARMACY MONITORING -- do not chart) 1 each PRN DAILY PRN MC SEE COMMENTS ; Start 12/22/17 at 10:30; Status UNV Active Scripts Active Lidocaine 1 Each Adh..patch 1 Patch TD DAILY Percocet 10-325 Mg Tablet (Oxycodone/Acetaminophen) 1 Each Tablet 1 Tab PO Q4HRS Brilinta (Ticagrelor) 90 Mg Tablet 90 Mg PO BID 30 Days Morphine Sulfate Er (Morphine Sulfate) 15 Mg Tablet.er 15 Mg PO BID Reported Tegretol (Carbamazepine) 200 Mg Tablet 1 Tab PO BID Tramadol Hcl 50 Mg Tablet 50 Mg PO Q4HRS PRN [regranex] 1 Susanna TD DAILY Lantus Solostar (Insulin Glargine,Hum.rec.anlog) 100 Unit/1 Ml Insuln.pen 18 Unit SQ QHS Diflucan (Fluconazole) 100 Mg Tablet 100 Mg PO PRN Carvedilol 3.125 Mg Tablet 12.5 Mg PO BID Erythromycin (Erythromycin Base) 250 Mg Capsule.dr 250 Mg PO BID Cardizem Cd (Diltiazem Hcl) 180 Mg Cap.er.24h 120 Mg PO DAILY Amiodarone Hcl 200 Mg Tablet 1 Tab PO DAILY Ferric Citrate 210 Mg Tablet 210 Mg PO 3X/WEEK Nystatin 15 Gm Powder 1 Susanna TP PRN BID PRN Proventil Hfa Inhaler (Albuterol Sulfate) 6.7 Gm Hfa.aer.ad 2 Puff IH BID PRN Zofran (Ondansetron Hcl) 4 Mg Tablet 4 Mg PO Q6-8HRS PRN Nephro-Shabbir Tablet (Folic Acid/Vitamin B Comp W-C) 0.8 Mg Tablet 1 Tab PO DAILY Tricor (Fenofibrate Nanocrystallized) 145 Mg Tablet 1 Tab PO HS Lipitor (Atorvastatin Calcium) 80 Mg Tablet 80 Mg PO HS Niacin 500 Mg Tablet 500 Mg PO HS Novolog (Insulin Aspart) 100 Unit/1 Ml Cartridge 0 SQ TIDAC sliding scale Aspirin 325 Mg Tablet 325 Mg PO DAILY Furosemide 80 Mg Tablet 80 Mg PO BID Docusate Sodium 100 Mg Capsule 1 Cap PO PRN PRN Nitrostat (Nitroglycerin) 0.4 Mg Tab.subl 0.4 Mg SL PRN Q5MIN PRN Take as needed for chest pain Vitals/I & O Vital Sign - Last 24 Hours 12/21/17 12/21/17 12/21/17 12/21/17 14:36 15:00 15:07 15:10 Temp 97.9 98.1 97.9 98.1 Pulse 74 74 Resp 17 18 B/P (MAP) 127/72 (90) 136/88 (104) Pulse Ox 97 99 99 100 O2 Delivery Room Air Room Air Room Air Room Air 12/21/17 12/21/17 12/21/17 12/21/17 17:22 19:00 20:00 23:00 Temp 98.7 98.9 98.7 98.9 Pulse 74 76 76 Resp 20 20 B/P (MAP) 136/88 125/59 (81) 127/56 (79) Pulse Ox 94 98 O2 Delivery Room Air Room Air Room Air 12/22/17 12/22/17 12/22/17 03:00 07:44 08:10 Temp 99.4 98.1 99.4 98.1 Pulse 70 78 Resp 18 14 14 B/P (MAP) 122/64 (83) 130/59 (82) Pulse Ox 98 95 95 O2 Delivery Room Air Room Air Intake and Output 12/21/17 12/21/17 12/22/17 15:00 23:00 07:00 Intake Total 800 ml 500 ml Balance 800 ml 500 ml TYREE RAMIREZ MD Dec 22, 2017 12:17
[2017-12-22 12:41] VITALS: BP 155/65
[2017-12-22] MEDS: ERYTHROMYCIN BASE 250 MG TABLET PO SCH ×2 (13:04→21:07)
[2017-12-22] MEDS: carBAMazepine 200 MG TABLET PO SCH ×2 (13:04→21:08)
[2017-12-22] MEDS: CARVEDILOL 3.125 MG TABLET. PO SCH ×2 (13:04→17:13)
[2017-12-22] MEDS: FOLIC/VIT B COMP W-C (RENAL) TABLET. PO SCH (13:05)
[2017-12-22] MEDS: LACTOBACILLUS RHAMNOSUS GG 1 CAPSULE. PO SCH ×2 (13:05→21:07)
[2017-12-22] MEDS: LINEZOLID 600 MG TABLET PO SCH ×2 (13:06→21:08)
[2017-12-22] MEDS: MORPHINE ER 15 MG TABLET.ER PO SCH ×2 (13:06→21:08)
[2017-12-22] MEDS: AMIODARONE HCL 200 MG TABLET. PO SCH (13:07)
[2017-12-22] MEDS: TICAGRELOR 90 MG TABLET. PO SCH ×2 (13:09→21:00)
[2017-12-22] MEDS: ceFAZolin SODIUM IV Push 1 GM VIAL. IVP SCH (13:10)
[2017-12-22 15:35] VITALS: BP 120/55
--- NOTE | 2017-12-22 15:42 | RAD ---
Right lower extremity arterial ultrasound History: Peripheral vascular disease Findings: Multiple grayscale, color, and duplex spectral analysis sonographic images were acquired of the right lower extremity arteries bilaterally. There are abnormal monophasic waveforms throughout the right lower extremity arteries, diffuse plaque. There is elevation of velocity of the right common femoral artery suggestive of stenosis more proximally. Right dorsalis pedis and peroneal arteries could not be visualized. Velocities in cm/sec: Common femoral artery 201 Profunda femoris artery 90 Proximal SFA 16 Mid SFA 20 Distal SFA 52 Popliteal artery 57 Peroneal artery not seen Dorsalis pedis artery not seen Posterior tibial artery 38 proximally to 31 distally Anterior tibial artery 16 Impression: 1. There is diffuse plaque. There is elevated velocity of the right common femoral artery suggestive of more proximal stenosis, also abnormal monophasic waveforms throughout the right lower extremity arteries suggestive of inflow disease. Electronically signed by: Law Crabtree MD (12/22/2017 3:39 PM) [id number]
[2017-12-22] MEDS: NIACIN ER 500 MG TABLET.ER PO SCH (17:13)
[2017-12-22] MEDS: oxyCODONE/APAP 10/325 1 TAB TABLET PO PRN (17:14)
[2017-12-22 19:50] VITALS: BP 117/56
[2017-12-22] MEDS: FENOFIBRATE,MICRONIZED 134 MG CAPSULE PO SCH (21:07)
[2017-12-22] MEDS: ATORVASTATIN CALCIUM 40 MG TABLET. PO SCH (21:08)
[2017-12-22] MEDS: INSULIN GLARGINE 300 UNITS/3 ML INSULN.PEN. SQ SCH (21:19)
[2017-12-22 23:00] VITALS: BP 129/56
[2017-12-23] MEDS: MORPHINE ER 15 MG TABLET.ER PO SCH ×3 (01:08→20:46)
[2017-12-23] MEDS: MORPHINE SULFATE 2 MG/ML VIAL. IV PRN ×4 (02:16→22:33)
[2017-12-23 03:00] VITALS: BP 124/54
[2017-12-23] MEDS: HEPARIN PF for SUB-Q USE 5,000 UNIT/0.5 ML VIAL. SQ SCH ×3 (06:00→20:47)
[2017-12-23 07:00] VITALS: BP 145/67
[2017-12-23] MEDS: INSULIN LISPRO 300 UNITS/3 ML INSULN.PEN. SQ SCH ×6 (07:30→17:20)
--- NOTE | 2017-12-23 08:00 | RAD ---
Abdominal aortic ultrasound, 12/22/2017: HISTORY: Peripheral vascular disease Duplex evaluation of the abdominal aorta was attempted including grayscale, color-flow and spectral Doppler analysis. Portions of the mid and distal aorta was obscured by overlying bowel. There are scattered atherosclerotic plaques. Patent right and left iliac arteries were visualized demonstrating abnormal monophasic Doppler blood flow. This indicates aortoiliac inflow disease. IMPRESSION: Extensive aortic atherosclerosis with inadequate delineation of the aorta due to overlying bowel. Review of the CT study of 12/02/2017 does demonstrate extensive aortoiliac calcific plaquing without evidence of aneurysm. Electronically signed by: Ronadl Levy MD (12/23/2017 7:57 AM) [facility]
[2017-12-23] MEDS: CARVEDILOL 3.125 MG TABLET. PO SCH ×2 (08:23→17:10)
[2017-12-23] MEDS: LACTOBACILLUS RHAMNOSUS GG 1 CAPSULE. PO SCH ×2 (08:24→20:46)
[2017-12-23] MEDS: ERYTHROMYCIN BASE 250 MG TABLET PO SCH ×2 (08:24→20:46)
[2017-12-23] MEDS: TICAGRELOR 90 MG TABLET. PO SCH ×2 (08:25→20:45)
[2017-12-23] MEDS: LINEZOLID 600 MG TABLET PO SCH (08:25)
[2017-12-23] MEDS: FUROSEMIDE 80 MG TABLET. PO SCH ×2 (08:25→17:09)
[2017-12-23] MEDS: carBAMazepine 200 MG TABLET PO SCH ×2 (08:25→20:46)
--- NOTE | 2017-12-23 08:25 | PDOC ---
Infectious Disease Note Subjective: Subjective pt says is awaiting vascular evaluation RLE swelling and discomfort at area of abrasion remains no f/c/n/v/d ROS: ROS Negative except for above. Vital Signs: Vital Signs Vital Signs Date Time Temp Pulse Resp B/P (MAP) Pulse Ox O2 Delivery O2 Flow Rate FiO2 12/23/17 03:00 98.6 79 20 124/54 (77) 97 Room Air 98.6 Physical Exam: PHYSICAL EXAM rt leg is red and swollen with a small open wound , medial aspect. Medications: Inpatient Meds: Current Medications Medications (Trade) Dose Ordered Sig/Martin Start Time Stop Time Status Last Admin Dose Admin Acetaminophen (Tylenol) 650 mg PRN Q6HRS PRN 12/20/17 12:45 Albumin Human 200 ml @ 200 mls/hr 1X PRN PRN 12/20/17 12:15 12/20/17 18:14 DC Albuterol Sulfate (Ventolin Neb Soln) 2.5 mg PRN BID PRN 12/20/17 02:45 Amiodarone HCl (Cordarone) 200 mg DAILY 12/20/17 09:00 12/22/17 13:07 200 MG Atorvastatin Calcium (Lipitor) 80 mg HS 12/20/17 21:00 12/22/17 21:08 80 MG Calcium Gluconate (Calcium Gluconate) 1,000 mg 1X ONCE 12/20/17 06:00 12/20/17 06:01 UNV Calcium Gluconate 1000 mg/Dextrose 110 ml @ 220 mls/hr 1X ONCE 12/20/17 06:15 12/20/17 06:44 DC 12/20/17 06:21 220 MLS/HR Carbamazepine (TEGretol) 200 mg BID 12/21/17 14:00 12/22/17 21:08 200 MG Carvedilol (Coreg) 12.5 mg BIDWMEALS 12/20/17 08:00 12/22/17 17:13 12.5 MG Cefazolin Sodium (Ancef) 1 gm Q24H 12/21/17 09:30 12/22/17 13:10 1 GM Cefazolin Sodium 1 gm/Dextrose 50 ml @ 100 mls/hr DAILY 12/21/17 09:00 UNV Ciprofloxacin (Cipro) 500 mg Q24H 12/21/17 07:00 12/21/17 08:54 DC 12/21/17 06:36 500 MG Clindamycin HCl (Cleocin) 150 mg TID 12/20/17 09:00 12/20/17 09:08 DC 12/20/17 08:42 150 MG Clonidine HCl (Catapres) 0.1 mg 1X PRN PRN 12/20/17 12:15 12/21/17 12:14 DC Darbepoetin Mauricio (Aranesp) 60 mcg WEEKLYHS 12/20/17 21:00 12/20/17 23:22 60 MCG Dextrose (Dextrose 50%-Water Syringe) 12.5 gm PRN Q15MIN PRN 12/20/17 08:45 Diltiazem HCl (Cardizem 24hr Cd) 120 mg DAILY 12/20/17 09:00 12/22/17 13:05 120 MG Diphenhydramine HCl (Benadryl Oral Elixir) 12.5 mg PRN Q8HRS PRN 12/21/17 09:00 12/22/17 22:10 12.5 MG Diphenhydramine HCl (Benadryl) 25 mg 1X PRN PRN 12/20/17 12:15 12/21/17 07:33 DC Docusate Sodium (Colace) 100 mg PRN DAILY PRN 12/20/17 12:45 12/22/17 21:08 100 MG Erythromycin (E-Mycin) 250 mg BID 12/20/17 09:00 12/22/17 21:07 250 MG Fenofibrate (Lofibra) 134 mg HS 12/20/17 21:00 12/22/17 21:07 134 MG Fentanyl Citrate (Fentanyl 2ml Vial) 50 mcg PRN Q2HR PRN 12/19/17 21:45 12/20/17 10:00 DC Fluconazole (Diflucan) 100 mg PRN DAILY PRN 12/20/17 00:30 12/20/17 11:34 DC Furosemide (Lasix) 80 mg [id number] 12/20/17 09:00 12/22/17 17:13 80 MG Heparin Sodium (Porcine) (Heparin Sq) 5,000 unit Q8HRS 12/20/17 14:00 12/21/17 14:33 5,000 UNIT Info (PHARMACY MONITORING -- do not chart) 1 each PRN DAILY PRN 12/22/17 10:30 UNV Insulin Glargine (Lantus) 15 units QHS 12/20/17 21:00 12/22/17 21:19 15 UNITS Insulin Human Lispro (HumaLOG) 10 units TIDAC 12/20/17 11:30 12/20/17 08:46 5 UNITS Labetalol HCl (Normodyne Iv Push) 10 mg PRN Q1HR PRN 12/20/17 12:15 12/21/17 12:14 DC Lactobacillus Rhamnosus (Culturelle) 1 cap BID 12/20/17 12:00 12/22/17 21:07 1 CAP Lidocaine (Lidoderm) 1 patch DAILY 12/20/17 09:00 12/21/17 08:42 1 PATCH Lidocaine HCl (Xylocaine-Mpf 2% Vial) 2 ml STK-MED ONCE 12/21/17 09:51 12/21/17 09:52 DC Linezolid (Zyvox) 600 mg BID 12/20/17 11:00 12/22/17 21:08 600 MG Magnesium Sulfate 50 ml @ 25 mls/hr PRN DAILY PRN 12/20/17 09:30 Morphine Sulfate (Morphine Sulfate) 2 mg PRN Q2HR PRN 12/20/17 12:45 12/22/17 12:20 DC Morphine Sulfate (Ms Contin) 15 mg BID 12/20/17 09:00 12/22/17 21:08 15 MG Niacin (Slo-Niacin) 500 mg QEVNG 12/20/17 18:00 12/22/17 17:13 500 MG Nitroglycerin (Nitrostat) 0.4 mg PRN Q5MIN PRN 12/20/17 00:30 Non-Formulary Medication (Albuterol Sulfate (Proventil Hfa Inhaler)) 2 puff BID PRN 12/20/17 00:30 UNV Non-Formulary Medication (Ferric Citrate ) 210 mg 3X/WEEK 12/21/17 09:00 12/22/17 07:20 DC Non-Formulary Medication ([regranex] ) 1 erich DAILY 12/20/17 09:00 12/22/17 07:20 DC Nystatin (Nystatin Oral Susp) 5 ml [id number] 12/20/17 13:00 12/21/17 14:11 DC Nystatin (Nystop) 1 erich PRN BID PRN 12/20/17 00:30 Ondansetron HCl (Zofran Odt) 4 mg PRN Q6HRS PRN 12/20/17 00:30 12/21/17 06:34 4 MG Ondansetron HCl (Zofran) 4 mg PRN Q6HRS PRN 12/20/17 12:45 12/23/17 02:16 4 MG Oxycodone/ Acetaminophen (Percocet 10/325) 1 tab PRN Q4HRS PRN 12/20/17 02:00 12/22/17 17:14 1 TAB Oxycodone/ Acetaminophen (Percocet 5/325) 1 tab 1X ONCE 12/19/17 20:45 12/19/17 20:46 DC 12/19/17 20:51 1 TAB Sodium Chloride 1,000 ml @ 1,000 mls/hr Q1H PRN 12/22/17 10:18 12/22/17 16:17 DC Ticagrelor (Brilinta) 90 mg BID 12/20/17 09:00 12/22/17 21:00 90 MG Tramadol HCl (Ultram) 50 mg PRN Q6HRS PRN 12/20/17 12:45 12/21/17 07:34 DC Vitamin B Complex/ Vitamin C (Melly-Shabbir) 1 tab DAILY 12/20/17 09:00 12/22/17 13:05 1 TAB Labs: Lab Laboratory Tests Test 12/22/17 13:03 12/22/17 17:21 12/22/17 21:16 12/23/17 07:53 Glucose (Fingerstick) 101 mg/dL (70-99) 160 mg/dL (70-99) 203 mg/dL (70-99) 68 mg/dL (70-99) Objective: Assessment: 1. Right lower extremity swelling with superficial skin breakdown from injury on 12/15/2017 with abrasion and , with subsequent redness and swelling, treated with outpatient clindamycin, now on linezolid, 2. history of infected diabetic foot ulcer with osteomyelitis of right great toe in the past, methicillin-sensitive Staphylococcus aureus in the past 2. Right dorsal second toe skin breakdown from shoe abrasion, does not look infected at this time. 3. Left below-knee amputation from left calcaneal osteomyelitis in 2014. 4. End-stage renal disease, on dialysis. 5. Leukocytosis. 6. ANTIBIOTIC ALLERGY TO MEROPENEM, PIPERACILLIN AND TAZOBACTAM CAUSING PEELING AND BLEEDING OF THE SKIN. ALSO, SULFA. TOLERATES KEFLEX AND HAS BEEN ON CEFAZOLIN, THOUGH HAS CAUSED ITCHING. 7. History of recent urinary tract infection, though urine cultures are negative, on Cipro POA for 5 days. 8. PAD Plan: Plan of Care cont cefazolin 1 gram IV every day (has tolerated) and Benadryl as needed for itching DC linezolid optimal edema control probiotics elevate leg GRACIELA LÓPEZ MD Dec 23, 2017 08:25
[2017-12-23 08:38] LABS: ALBUMIN 2.4 g/dL (3.4-5.0); CALCIUM 7.6 mg/dL (8.5-10.1); CREATININE 3.5 mg/dL (0.6-1.0); GFR 13.7; MAGNESIUM 2.1 mg/dL (1.8-2.4); PHOSPHORUS 5.5 mg/dL (2.6-4.7); POTASSIUM 4.5 mmol/L (3.5-5.1)
[2017-12-23] MEDS: LIDOCAINE (700MG/PATCH) PATCH. TD SCH (09:00)
--- NOTE | 2017-12-23 09:53 | PDOC ---
PROGRESS NOTES Chief Complaint Chief Complaint hypocalcemia on PD ESRD on PD rt leg cellulitis h/o CAD WITH 8 stents. CABG h/o VRE, MRSA, ALlergic to zosyn, meropenum dm2 on insulin left leg BKA chronic back pain Patent right and left iliac arteries were visualized demonstrating abnormal monophasic Doppler blood flow. This indicates aortoiliac inflow disease.no vas surgery plans for intervention now plan: vascular surgery consult rec one additional day of iv antibiotics fu with renal, need HD today PD held home meds, slightly decrease insulin, ssi, refused novolog dc clinda, add zyvox, dc cipro. rt leg US ID consulted, add diflucan and cefazolin got 2g Calcium in icu wound care consult dvt ppx home on keflex 500mg po bid x 10 days pain management consult History of Present Illness History of Present Illness ROS: no fever, chills, sob or chest pain rt leg pain worse, US no abscess seems ok to take keflex and cefazolin before Ca better with HD and repletion Vitals Vitals Vital Signs Date Time Temp Pulse Resp B/P (MAP) Pulse Ox O2 Delivery O2 Flow Rate FiO2 12/23/17 08:24 97 Room Air 12/23/17 08:23 86 160/70 12/23/17 07:00 98.6 16 98.6 Physical Exam Physical Exam rt leg is red and swollen with a small open wound , medial aspect. General: Alert, Oriented X3, Cooperative, No acute distress Heart: Regular rate, Normal S1, Normal S2 Lungs: Clear Abdomen: Normal bowel sounds, Soft, No tenderness Extremities: No clubbing, No cyanosis, Normal pulses Skin: No rashes Labs LABS Abdominal aortic ultrasound, 12/22/2017: HISTORY: Peripheral vascular disease Duplex evaluation of the abdominal aorta was attempted including grayscale, color-flow and spectral Doppler analysis. Portions of the mid and distal aorta was obscured by overlying bowel. There are scattered atherosclerotic plaques. Patent right and left iliac arteries were visualized demonstrating abnormal monophasic Doppler blood flow. This indicates aortoiliac inflow disease. IMPRESSION: Extensive aortic atherosclerosis with inadequate delineation of the aorta due to overlying bowel. Review of the CT study of 12/02/2017 does demonstrate extensive aortoiliac calcific plaquing without evidence of aneurysm. Electronically signed by: Ronald Levy MD (12/23/2017 7:57 AM) [facility] DICTATED and SIGNED BY: RONALD LEVY MD DATE: 12/23/17 0752 Laboratory Tests Test 12/22/17 13:03 12/22/17 17:21 12/22/17 21:16 12/23/17 07:00 Glucose (Fingerstick) 101 mg/dL (70-99) 160 mg/dL (70-99) 203 mg/dL (70-99) Sodium Level 140 mmol/L (136-145) Potassium Level 4.5 mmol/L (3.5-5.1) Chloride Level 99 mmol/L (98-107) Carbon Dioxide Level 33 mmol/L (21-32) Anion Gap 8 (6-14) Blood Urea Nitrogen 24 mg/dL (7-20) Creatinine 3.5 mg/dL (0.6-1.0) Estimated GFR (Cockcroft-Gault) 13.7 Glucose Level 81 mg/dL (70-99) Calcium Level 7.6 mg/dL (8.5-10.1) Phosphorus Level 5.5 mg/dL (2.6-4.7) Magnesium Level 2.1 mg/dL (1.8-2.4) Creatine Kinase 68 U/L (26-192) Albumin 2.4 g/dL (3.4-5.0) Test 12/23/17 07:53 Glucose (Fingerstick) 68 mg/dL (70-99) Assessment and Plan Assessmemt and Plan Problems Medical Problems: (1) End-stage renal disease on hemodialysis Status: Acute (2) Hypocalcemia Status: Acute Comment Review of Relevant I have reviewed the following items bert (where applicable) has been applied. Labs Laboratory Tests Test 12/21/17 14:14 12/21/17 16:50 12/21/17 20:10 12/22/17 04:45 Glucose (Fingerstick) 203 mg/dL (70-99) 189 mg/dL (70-99) 75 mg/dL (70-99) Sodium Level 136 mmol/L (136-145) Potassium Level 4.3 mmol/L (3.5-5.1) Chloride Level 98 mmol/L (98-107) Carbon Dioxide Level 32 mmol/L (21-32) Anion Gap 6 (6-14) Blood Urea Nitrogen 29 mg/dL (7-20) Creatinine 4.1 mg/dL (0.6-1.0) Estimated GFR (Cockcroft-Gault) 11.4 Glucose Level 140 mg/dL (70-99) Calcium Level 8.2 mg/dL (8.5-10.1) Phosphorus Level 6.3 mg/dL (2.6-4.7) Magnesium Level 2.0 mg/dL (1.8-2.4) Creatine Kinase 76 U/L (26-192) Albumin 2.4 g/dL (3.4-5.0) Test 12/22/17 08:07 12/22/17 13:03 12/22/17 17:21 12/22/17 21:16 Glucose (Fingerstick) 141 mg/dL (70-99) 101 mg/dL (70-99) 160 mg/dL (70-99) 203 mg/dL (70-99) Test 12/23/17 07:00 12/23/17 07:53 Sodium Level 140 mmol/L (136-145) Potassium Level 4.5 mmol/L (3.5-5.1) Chloride Level 99 mmol/L (98-107) Carbon Dioxide Level 33 mmol/L (21-32) Anion Gap 8 (6-14) Blood Urea Nitrogen 24 mg/dL (7-20) Creatinine 3.5 mg/dL (0.6-1.0) Estimated GFR (Cockcroft-Gault) 13.7 Glucose Level 81 mg/dL (70-99) Calcium Level 7.6 mg/dL (8.5-10.1) Phosphorus Level 5.5 mg/dL (2.6-4.7) Magnesium Level 2.1 mg/dL (1.8-2.4) Creatine Kinase 68 U/L (26-192) Albumin 2.4 g/dL (3.4-5.0) Glucose (Fingerstick) 68 mg/dL (70-99) Laboratory Tests Test 12/22/17 13:03 12/22/17 17:21 12/22/17 21:16 12/23/17 07:00 Glucose (Fingerstick) 101 mg/dL (70-99) 160 mg/dL (70-99) 203 mg/dL (70-99) Sodium Level 140 mmol/L (136-145) Potassium Level 4.5 mmol/L (3.5-5.1) Chloride Level 99 mmol/L (98-107) Carbon Dioxide Level 33 mmol/L (21-32) Anion Gap 8 (6-14) Blood Urea Nitrogen 24 mg/dL (7-20) Creatinine 3.5 mg/dL (0.6-1.0) Estimated GFR (Cockcroft-Gault) 13.7 Glucose Level 81 mg/dL (70-99) Calcium Level 7.6 mg/dL (8.5-10.1) Phosphorus Level 5.5 mg/dL (2.6-4.7) Magnesium Level 2.1 mg/dL (1.8-2.4) Creatine Kinase 68 U/L (26-192) Albumin 2.4 g/dL (3.4-5.0) Test 12/23/17 07:53 Glucose (Fingerstick) 68 mg/dL (70-99) Microbiology 12/19/17 Blood Culture - Preliminary, Resulted NO GROWTH AFTER 3 DAYS Medications Current Medications Oxycodone/ Acetaminophen (Percocet 5/325) 1 tab 1X ONCE PO Last administered on 12/19/17at 20:51; Start 12/19/17 at 20:45; Stop 12/19/17 at 20:46; Status DC Calcium Gluconate (Calcium Gluconate) 1,000 mg 1X ONCE IVP Last administered on 12/19/17at 22:07; Start 12/19/17 at 21:30; Stop 12/19/17 at 21:31; Status DC Ondansetron HCl (Zofran) 4 mg PRN Q8HRS PRN IV NAUSEA/VOMITING; Start 12/19/17 at 21:45; Stop 12/20/17 at 21:44; Status DC Fentanyl Citrate (Fentanyl 2ml Vial) 50 mcg PRN Q2HR PRN IV PAIN; Start at 21:45; Stop 12/20/17 at 10:00; Status DC Morphine Sulfate (Morphine Sulfate) 2 mg PRN Q2HR PRN IV PAIN Last administered on 12/23/17at 02:16; Start 12/20/17 at 00:30 Amiodarone HCl (Cordarone) 200 mg DAILY PO Last administered on 12/22/17at 13:07 ; Start 12/20/17 at 09:00 Carvedilol (Coreg) 12.5 mg BIDWMEALS PO Last administered on 12/23/17 08:23; Start 12/20/17 at 08:00 Vitamin B Complex/ Vitamin C (Melly-Shabbir) 1 tab DAILY PO Last administered on at 13:05; Start 12/20/17 at 09:00 Furosemide (Lasix) 80 mg [id number] PO Last administered on 12/23/17 08:25; Start 12/20/17 at 09:00 Insulin Glargine (Lantus) 18 units QHS SQ ; Start 12/20/17 at 21:00; Stop at 21:00; Status DC Morphine Sulfate (Ms Contin) 15 mg BID PO Last administered on 12/23/17 08:24 ; Start 12/20/17 at 09:00 Nitroglycerin (Nitrostat) 0.4 mg PRN Q5MIN PRN SL CHEST PAIN; Start 12/20/17 at 00:30 Nystatin (Nystop) 1 susanna PRN BID PRN TP SKIN BREAKDOWN; Start 12/20/17 at 00:30 Oxycodone/ Acetaminophen (Percocet 10/325) 1 tab Q4HRS PO ; Start 12/20/17 at 04 :00; Status Cancel Ticagrelor (Brilinta) 90 mg BID PO Last administered on 12/23/17 08:25; Start 12/20/17 at 09:00 Tramadol HCl (Ultram) 50 mg PRN Q4HRS PRN PO HEADACHE, MILD PAIN; Start at 00:30 Non-Formulary Medication (Albuterol Sulfate (Proventil Hfa Inhaler)) 2 puff BID PRN IH FOR ASTHMA; Start 12/20/17 at 00:30; Status UNV Atorvastatin Calcium (Lipitor) 80 mg HS PO Last administered on 12/22/17at 21:08 ; Start 12/20/17 at 21:00 Diltiazem HCl (Cardizem 24hr Cd) 120 mg DAILY PO Last administered on at 13:05; Start 12/20/17 at 09:00 Erythromycin (E-Mycin) 250 mg BID PO Last administered on 12/23/17at 08:24; Start 12/20/17 at 09:00 Fenofibrate (Lofibra) 134 mg HS PO Last administered on 12/22/17at 21:07; Start 12/20/17 at 21:00 Non-Formulary Medication (Ferric Citrate ) 210 mg 3X/WEEK PO ; Start 12/21/17 at 09:00; Stop 12/22/17 at 07:20; Status DC Fluconazole (Diflucan) 100 mg PRN DAILY PRN PO YEAST INFECTION; Start 12/20/17 at 00:30; Stop 12/20/17 at 11:34; Status DC Lidocaine (Lidoderm) 1 patch DAILY TD Last administered on 12/21/17at 08:42; Start 12/20/17 at 09:00 Niacin (Slo-Niacin) 500 mg QEVNG PO Last administered on 12/22/17at 17:13; Start 12/20/17 at 18:00 Ondansetron HCl (Zofran Odt) 4 mg PRN Q6HRS PRN PO NAUSEA/VOMITING Last administered on 12/21/17at 06:34; Start 12/20/17 at 00:30 Non-Formulary Medication ([regranex] ) 1 susanna DAILY TD ; Start 12/20/17 at 09:00 ; Stop 12/22/17 at 07:20; Status DC Ciprofloxacin (Cipro) 500 mg [id number] PO Last administered on 12/20/17at 06:21; Start 12/20/17 at 07:00; Stop 12/20/17 at 10:32; Status DC Clindamycin HCl (Cleocin) 150 mg TID PO Last administered on 12/20/17at 08:42; Start 12/20/17 at 09:00; Stop 12/20/17 at 09:08; Status DC Oxycodone/ Acetaminophen (Percocet 10/325) 1 tab PRN Q4HRS PRN PO MODERATE- SEVERE PAIN Last administered on 12/22/17at 17:14; Start 12/20/17 at 02:00 Albuterol Sulfate (Ventolin Neb Soln) 2.5 mg PRN BID PRN NEB SHORTNESS OF BREATH; Start 12/20/17 at 02:45 Calcium Gluconate (Calcium Gluconate) 1,000 mg 1X ONCE IVP ; Start 12/20/17 at 06:00; Stop 12/20/17 at 06:01; Status UNV Calcium Gluconate 1000 mg/Dextrose 110 ml @ 220 mls/hr 1X ONCE IV Last administered on 12/20/17at 06:21; Start 12/20/17 at 06:15; Stop 12/20/17 at 06:44 ; Status DC Insulin Human Lispro (HumaLOG) 0-9 UNITS TIDWMEALS SQ Last administered on 12/21at 17:26; Start 12/20/17 at 12:00 Dextrose (Dextrose 50%-Water Syringe) 12.5 gm PRN Q15MIN PRN IV SEE COMMENTS Last administered on 12/23/17at 08:29; Start 12/20/17 at 08:45 Insulin Human Lispro (HumaLOG) 10 units TIDAC SQ Last administered on at 08:46; Start 12/20/17 at 11:30 Linezolid (Zyvox) 600 mg BID PO Last administered on 12/23/17at 08:25; Start at 11:00 Nystatin (Nystatin Oral Susp) 5 ml [id number] SWSW ; Start 12/20/17 at 13:00; Stop 12/21/17 at 14:11; Status DC Darbepoetin Mauricio (Aranesp) 60 mcg WEEKLYHS SQ Last administered on 12/20/17at 23 :22; Start 12/20/17 at 21:00 Magnesium Sulfate 50 ml @ 25 mls/hr PRN DAILY PRN IV for Mag < 1.7 on am labs; Start 12/20/17 at 09:30 Ciprofloxacin (Cipro) 500 mg Q24H PO Last administered on 12/21/17at 06:36; Start 12/21/17 at 07:00; Stop 12/21/17 at 08:54; Status DC Lactobacillus Rhamnosus (Culturelle) 1 cap BID PO Last administered on at 08:24; Start 12/20/17 at 12:00 Insulin Glargine (Lantus) 15 units QHS SQ Last administered on 12/22/17at 21:19 ; Start 12/20/17 at 21:00 Sodium Chloride 1,000 ml @ 1,000 mls/hr Q1H PRN IV hypotension; Start 12/20/17 at 12:07; Stop 12/20/17 at 18:06; Status DC Albumin Human 200 ml @ 200 mls/hr 1X PRN PRN IV Hypotension; Start 12/20/17 at 12:15; Stop 12/20/17 at 18:14; Status DC Acetaminophen (Tylenol) 500 mg 1X PRN PRN PO MILD PAIN / TEMP; Start 12/20/17 at 12:15; Stop 12/21/17 at 07:34; Status DC Diphenhydramine HCl (Benadryl) 25 mg 1X PRN PRN IV ITCHING; Start 12/20/17 at 12:15; Stop 12/21/17 at 12:14; Status Cancel Diphenhydramine HCl (Benadryl) 25 mg 1X PRN PRN IV ITCHING; Start 12/20/17 at 12:15; Stop 12/21/17 at 07:33; Status DC Labetalol HCl (Normodyne Iv Push) 10 mg PRN Q1HR PRN IVP SBP > 180; Start 12/20 at 12:15; Stop 12/21/17 at 12:14; Status DC Clonidine HCl (Catapres) 0.1 mg 1X PRN PRN PO SBP > 180; Start 12/20/17 at 12: 15; Stop 12/21/17 at 12:14; Status DC Sodium Chloride 1,000 ml @ 400 mls/hr Q2H30M PRN IV PATENCY; Start 12/20/17 at 12:07; Stop 12/21/17 at 00:06; Status DC Info (PHARMACY MONITORING -- do not chart) 1 each PRN DAILY PRN MC SEE COMMENTS ; Start 12/20/17 at 12:15 Info (PHARMACY MONITORING -- do not chart) 1 each PRN DAILY PRN MC SEE COMMENTS ; Start 12/20/17 at 12:15; Status UNV Acetaminophen (Tylenol) 650 mg PRN Q6HRS PRN PO FEVER; Start 12/20/17 at 12:45 Ondansetron HCl (Zofran) 4 mg PRN Q6HRS PRN IV NAUSEA/VOMITING Last administered on 12/23/17at 02:16; Start 12/20/17 at 12:45 Morphine Sulfate (Morphine Sulfate) 2 mg PRN Q2HR PRN IV MODERATE TO SEVERE PAIN; Start 12/20/17 at 12:45; Stop 12/22/17 at 12:20; Status DC Tramadol HCl (Ultram) 50 mg PRN Q6HRS PRN PO MILD TO MODERATE PAIN; Start 12/20 at 12:45; Stop 12/21/17 at 07:34; Status DC Docusate Sodium (Colace) 100 mg PRN DAILY PRN PO CONSTIPATION Last administered on 12/22/17at 21:08; Start 12/20/17 at 12:45 Heparin Sodium (Porcine) (Heparin Sq) 5,000 unit Q8HRS SQ Last administered on 12/21/17at 14:33; Start 12/20/17 at 14:00 Cefazolin Sodium 1 gm/Dextrose 50 ml @ 100 mls/hr DAILY IV ; Start 12/21/17 at 09:00; Status UNV Diphenhydramine HCl (Benadryl Oral Elixir) 12.5 mg PRN Q8HRS PRN PO ITCHING Last administered on 12/22/17at 22:10; Start 12/21/17 at 09:00 Cefazolin Sodium (Ancef) 1 gm Q24H IVP Last administered on 12/22/17at 13:10; Start 12/21/17 at 09:30 Sodium Chloride 1,000 ml @ 1,000 mls/hr Q1H PRN IV hypotension; Start 12/21/17 at 09:18; Stop 12/21/17 at 15:17; Status DC Sodium Chloride 1,000 ml @ 400 mls/hr Q2H30M PRN IV PATENCY; Start 12/21/17 at 09:18; Stop 12/21/17 at 23:47; Status DC Info (PHARMACY MONITORING -- do not chart) 1 each PRN DAILY PRN MC SEE COMMENTS ; Start 12/21/17 at 09:30; Status UNV Info (PHARMACY MONITORING -- do not chart) 1 each PRN DAILY PRN MC SEE COMMENTS ; Start 12/21/17 at 09:30; Status UNV Lidocaine HCl (Xylocaine-Mpf 2% Vial) 2 ml STK-MED ONCE .ROUTE ; Start 12/21/17 at 09:51; Stop 12/21/17 at 09:52; Status DC Carbamazepine (TEGretol) 200 mg BID PO Last administered on 12/23/17at 08:25; Start 12/21/17 at 14:00 Sodium Chloride 1,000 ml @ 1,000 mls/hr Q1H PRN IV hypotension; Start 12/22/17 at 10:18; Stop 12/22/17 at 16:17; Status DC Info (PHARMACY MONITORING -- do not chart) 1 each PRN DAILY PRN MC SEE COMMENTS ; Start 12/22/17 at 10:30; Status UNV Info (PHARMACY MONITORING -- do not chart) 1 each PRN DAILY PRN MC SEE COMMENTS ; Start 12/22/17 at 10:30; Status UNV Active Scripts Active Lidocaine 1 Each Adh..patch 1 Patch TD DAILY Percocet 10-325 Mg Tablet (Oxycodone/Acetaminophen) 1 Each Tablet 1 Tab PO Q4HRS Brilinta (Ticagrelor) 90 Mg Tablet 90 Mg PO BID 30 Days Morphine Sulfate Er (Morphine Sulfate) 15 Mg Tablet.er 15 Mg PO BID Reported Tegretol (Carbamazepine) 200 Mg Tablet 1 Tab PO BID Tramadol Hcl 50 Mg Tablet 50 Mg PO Q4HRS PRN [regranex] 1 Susanna TD DAILY Lantus Solostar (Insulin Glargine,Hum.rec.anlog) 100 Unit/1 Ml Insuln.pen 18 Unit SQ QHS Diflucan (Fluconazole) 100 Mg Tablet 100 Mg PO PRN Carvedilol 3.125 Mg Tablet 12.5 Mg PO BID Erythromycin (Erythromycin Base) 250 Mg Capsule.dr 250 Mg PO BID Cardizem Cd (Diltiazem Hcl) 180 Mg Cap.er.24h 120 Mg PO DAILY Amiodarone Hcl 200 Mg Tablet 1 Tab PO DAILY Ferric Citrate 210 Mg Tablet 210 Mg PO 3X/WEEK Nystatin 15 Gm Powder 1 Susanna TP PRN BID PRN Proventil Hfa Inhaler (Albuterol Sulfate) 6.7 Gm Hfa.aer.ad 2 Puff IH BID PRN Zofran (Ondansetron Hcl) 4 Mg Tablet 4 Mg PO Q6-8HRS PRN Nephro-Shabbir Tablet (Folic Acid/Vitamin B Comp W-C) 0.8 Mg Tablet 1 Tab PO DAILY Tricor (Fenofibrate Nanocrystallized) 145 Mg Tablet 1 Tab PO HS Lipitor (Atorvastatin Calcium) 80 Mg Tablet 80 Mg PO HS Niacin 500 Mg Tablet 500 Mg PO HS Novolog (Insulin Aspart) 100 Unit/1 Ml Cartridge 0 SQ TIDAC sliding scale Aspirin 325 Mg Tablet 325 Mg PO DAILY Furosemide 80 Mg Tablet 80 Mg PO BID Docusate Sodium 100 Mg Capsule 1 Cap PO PRN PRN Nitrostat (Nitroglycerin) 0.4 Mg Tab.subl 0.4 Mg SL PRN Q5MIN PRN Take as needed for chest pain Vitals/I & O Vital Sign - Last 24 Hours 12/22/17 12/22/17 12/22/17 12/22/17 12:41 13:04 13:05 13:06 Temp 98.6 98.6 Pulse 78 78 Resp 18 B/P (MAP) 155/65 (95) 155/65 155/65 Pulse Ox 95 O2 Delivery Room Air 12/22/17 12/22/17 12/22/17 12/22/17 13:07 13:26 13:35 13:56 Pulse 78 Resp 17 17 B/P (MAP) 155/65 Pulse Ox 95 O2 Delivery Room Air Room Air 12/22/17 12/22/17 12/22/17 12/22/17 15:35 17:06 17:13 17:14 Temp 99.1 99.1 Pulse 82 82 Resp 14 17 17 B/P (MAP) 120/55 (76) 120/55 Pulse Ox 96 96 96 O2 Delivery Room Air Room Air Room Air 12/22/17 12/22/17 12/22/17 12/22/17 18:14 19:50 20:00 23:00 Temp 98.4 97.8 98.4 97.8 Pulse 83 82 Resp 17 18 20 B/P (MAP) 117/56 (76) 129/56 (80) Pulse Ox 96 97 97 O2 Delivery Room Air Room Air Room Air Room Air 12/23/17 12/23/17 12/23/17 12/23/17 02:16 02:46 03:00 07:00 Temp 98.6 98.6 98.6 98.6 Pulse 79 75 Resp 20 20 16 B/P (MAP) 124/54 (77) 145/67 (93) Pulse Ox 97 97 98 O2 Delivery Room Air Room Air Room Air 12/23/17 12/23/17 12/23/17 08:00 08:23 08:24 Pulse 86 B/P (MAP) 160/70 Pulse Ox 97 O2 Delivery Room Air Room Air Intake and Output 12/22/17 12/22/17 12/23/17 15:00 23:00 07:00 Intake Total 600 ml 200 ml Balance 600 ml 200 ml TYREE RAMIREZ MD Dec 23, 2017 09:53
[2017-12-23] MEDS ORDERED: BACITRACIN TOPICAL OINT 14GM TUBE. TP PRN (10:00)
[2017-12-23] MEDS: ceFAZolin SODIUM IV Push 1 GM VIAL. IVP SCH (10:29)
[2017-12-23] MEDS: FOLIC/VIT B COMP W-C (RENAL) TABLET. PO SCH (10:29)
[2017-12-23] MEDS: AMIODARONE HCL 200 MG TABLET. PO SCH (10:30)
--- NOTE | 2017-12-23 10:33 | PDOC ---
Renal-Progress Notes Subjective Notes Notes NONE History of Present Illness Hx of present illness STABLE Vitals Vitals Vital Signs Date Time Temp Pulse Resp B/P (MAP) Pulse Ox O2 Delivery O2 Flow Rate FiO2 12/23/17 08:24 97 Room Air 12/23/17 08:23 86 160/70 12/23/17 07:00 98.6 16 98.6 Weight Weight [ ] I.O. Intake and Output Intake and Output 12/23/17 07:00 Intake Total 800 ml Balance 800 ml Intake Oral 800 ml Labs Labs Laboratory Tests Test 12/22/17 13:03 12/22/17 17:21 12/22/17 21:16 12/23/17 07:00 Glucose (Fingerstick) 101 mg/dL (70-99) 160 mg/dL (70-99) 203 mg/dL (70-99) Sodium Level 140 mmol/L (136-145) Potassium Level 4.5 mmol/L (3.5-5.1) Chloride Level 99 mmol/L (98-107) Carbon Dioxide Level 33 mmol/L (21-32) Anion Gap 8 (6-14) Blood Urea Nitrogen 24 mg/dL (7-20) Creatinine 3.5 mg/dL (0.6-1.0) Estimated GFR (Cockcroft-Gault) 13.7 Glucose Level 81 mg/dL (70-99) Calcium Level 7.6 mg/dL (8.5-10.1) Phosphorus Level 5.5 mg/dL (2.6-4.7) Magnesium Level 2.1 mg/dL (1.8-2.4) Creatine Kinase 68 U/L (26-192) Albumin 2.4 g/dL (3.4-5.0) Test 12/23/17 07:53 12/23/17 10:29 Glucose (Fingerstick) 68 mg/dL (70-99) 141 mg/dL (70-99) Micro Micro Microbiology 12/19/17 Blood Culture - Preliminary, Resulted NO GROWTH AFTER 3 DAYS Review of Systems Constitutional: yes: no symptom reported Ears/Nose/Throat: Yes: no symptom reported Eyes: Yes: no symptom reported Pulmonary: Yes no symptom reported Cardiovascular: Yes no symptom reported Gastrointestional: Yes: no symptom reported Genitourinary: Yes: no symptom reported Musculoskeletal: Yes: no symptom reported Skin: Yes no symptom reported Psychiatric/Neurological: Yes: no symptom reported Endocrine: Yes: no symptom reported Physical Exam General Appearance: no apparent distress Respiratory: bilateral CTA Heart: S1S2 Abdomen: soft, bowel sounds present Genitourinary: bladder flat Extremities: pulses present Neurology: alert, oriented Assessment Assessment IMP ESRD ANEMIA DM II HTN R LE CELLULITIS PLAN HD TOMORROW ANTIBIOTICS WILL DO PD WHEN SHE GOES HOME CHARLY ZAVALA MD Dec 23, 2017 10:32
[2017-12-23 11:00] VITALS: BP 171/67
--- NOTE | 2017-12-23 11:20 | PDOC2 ---
CONSULT Date of Consult Date of Consult DATE: 12/23/17 TIME: 11:13 Reason for Consult Reason for Consult: Right lower extremity peripheral arterial disease History of Present Illness Reason for Visit: This a very pleasant 52-year-old female who I was asked to see for right lower extremity peripheral arterial disease. Patient has a long history of cardiovascular occlusive disease and lower extremity occlusive disease which has resulted in a left lower extremity below-knee amputation. The patient has known severe tibial vessel arterial occlusive disease in the right lower extremity and has had previous peripheral intervention with stenting. She has been following with the wound care center for right lower extremity wounds which are all now healing. She has mild cellulitis which is resolving. Past Medical History Cardiovascular: CAD, HTN, IA, Hyperlipidemia, Aortic stenosis, Valve insufficiency, Other Pulmonary: Asthma, COPD, Pneumonia CENTRAL NERVOUS SYSTEM: Other GI: GERD, Other Heme/Onc: Anemia NOS Hepatobiliary: No pertinent hx Psych: No pertinent hx Rheumatologic: Fibromyalgia Infectious disease: Other Renal/: Chronic renal failure Endocrine: Diabetes, Hyperparathyroidism Past Surgical History Past Surgical History: CABG, Hysterectomy, Other Family History Family History: Diabetes, Hypertension Social History No ALCOHOL: none Drugs: None, Other Lives: with Family Current Problem List Problem List Problems Medical Problems: (1) End-stage renal disease on hemodialysis Status: Acute (2) Hypocalcemia Status: Acute Current Medications Current Medications Current Medications Oxycodone/ Acetaminophen (Percocet 5/325) 1 tab 1X ONCE PO Last administered on 12/19/17at 20:51; Start 12/19/17 at 20:45; Stop 12/19/17 at 20:46; Status DC Calcium Gluconate (Calcium Gluconate) 1,000 mg 1X ONCE IVP Last administered on 12/19/17at 22:07; Start 12/19/17 at 21:30; Stop 12/19/17 at 21:31; Status DC Ondansetron HCl (Zofran) 4 mg PRN Q8HRS PRN IV NAUSEA/VOMITING; Start 12/19/17 at 21:45; Stop 12/20/17 at 21:44; Status DC Fentanyl Citrate (Fentanyl 2ml Vial) 50 mcg PRN Q2HR PRN IV PAIN; Start at 21:45; Stop 12/20/17 at 10:00; Status DC Morphine Sulfate (Morphine Sulfate) 2 mg PRN Q2HR PRN IV PAIN Last administered on 12/23/17 10:32; Start 12/20/17 at 00:30 Amiodarone HCl (Cordarone) 200 mg DAILY PO Last administered on 12/23/17 10:30 ; Start 12/20/17 at 09:00 Carvedilol (Coreg) 12.5 mg BIDWMEALS PO Last administered on 12/23/17 08:23; Start 12/20/17 at 08:00 Vitamin B Complex/ Vitamin C (Melly-Shabbir) 1 tab DAILY PO Last administered on 10:29; Start 12/20/17 at 09:00 Furosemide (Lasix) 80 mg BID94 PO Last administered on 12/23/17 08:25; Start 12/20/17 at 09:00 Insulin Glargine (Lantus) 18 units QHS SQ ; Start 12/20/17 at 21:00; Stop at 21:00; Status DC Morphine Sulfate (Ms Contin) 15 mg BID PO Last administered on 12/23/17 08:24 ; Start 12/20/17 at 09:00 Nitroglycerin (Nitrostat) 0.4 mg PRN Q5MIN PRN SL CHEST PAIN; Start 12/20/17 at 00:30 Nystatin (Nystop) 1 susanna PRN BID PRN TP SKIN BREAKDOWN; Start 12/20/17 at 00:30 Oxycodone/ Acetaminophen (Percocet 10/325) 1 tab Q4HRS PO ; Start 12/20/17 at 04 :00; Status Cancel Ticagrelor (Brilinta) 90 mg BID PO Last administered on 12/23/17 08:25; Start 12/20/17 at 09:00 Tramadol HCl (Ultram) 50 mg PRN Q4HRS PRN PO HEADACHE, MILD PAIN; Start at 00:30 Non-Formulary Medication (Albuterol Sulfate (Proventil Hfa Inhaler)) 2 puff BID PRN IH FOR ASTHMA; Start 12/20/17 at 00:30; Status UNV Atorvastatin Calcium (Lipitor) 80 mg HS PO Last administered on 12/22/17 21:08 ; Start 12/20/17 at 21:00 Diltiazem HCl (Cardizem 24hr Cd) 120 mg DAILY PO Last administered on at 10:30; Start 12/20/17 at 09:00 Erythromycin (E-Mycin) 250 mg BID PO Last administered on 12/23/17at 08:24; Start 12/20/17 at 09:00 Fenofibrate (Lofibra) 134 mg HS PO Last administered on 12/22/17at 21:07; Start 12/20/17 at 21:00 Non-Formulary Medication (Ferric Citrate ) 210 mg 3X/WEEK PO ; Start 12/21/17 at 09:00; Stop 12/22/17 at 07:20; Status DC Fluconazole (Diflucan) 100 mg PRN DAILY PRN PO YEAST INFECTION; Start 12/20/17 at 00:30; Stop 12/20/17 at 11:34; Status DC Lidocaine (Lidoderm) 1 patch DAILY TD Last administered on 12/21/17at 08:42; Start 12/20/17 at 09:00 Niacin (Slo-Niacin) 500 mg QEVNG PO Last administered on 12/22/17at 17:13; Start 12/20/17 at 18:00 Ondansetron HCl (Zofran Odt) 4 mg PRN Q6HRS PRN PO NAUSEA/VOMITING Last administered on 12/21/17at 06:34; Start 12/20/17 at 00:30 Non-Formulary Medication ([regranex] ) 1 susanna DAILY TD ; Start 12/20/17 at 09:00 ; Stop 12/22/17 at 07:20; Status DC Ciprofloxacin (Cipro) 500 mg [id number] PO Last administered on 12/20/17at 06:21; Start 12/20/17 at 07:00; Stop 12/20/17 at 10:32; Status DC Clindamycin HCl (Cleocin) 150 mg TID PO Last administered on 12/20/17at 08:42; Start 12/20/17 at 09:00; Stop 12/20/17 at 09:08; Status DC Oxycodone/ Acetaminophen (Percocet 10/325) 1 tab PRN Q4HRS PRN PO MODERATE- SEVERE PAIN Last administered on 12/22/17at 17:14; Start 12/20/17 at 02:00 Albuterol Sulfate (Ventolin Neb Soln) 2.5 mg PRN BID PRN NEB SHORTNESS OF BREATH; Start 12/20/17 at 02:45 Calcium Gluconate (Calcium Gluconate) 1,000 mg 1X ONCE IVP ; Start 12/20/17 at 06:00; Stop 12/20/17 at 06:01; Status UNV Calcium Gluconate 1000 mg/Dextrose 110 ml @ 220 mls/hr 1X ONCE IV Last administered on 12/20/17at 06:21; Start 12/20/17 at 06:15; Stop 12/20/17 at 06:44 ; Status DC Insulin Human Lispro (HumaLOG) 0-9 UNITS TIDWMEALS SQ Last administered on 12/21at 17:26; Start 12/20/17 at 12:00 Dextrose (Dextrose 50%-Water Syringe) 12.5 gm PRN Q15MIN PRN IV SEE COMMENTS Last administered on 12/23/17at 08:29; Start 12/20/17 at 08:45 Insulin Human Lispro (HumaLOG) 10 units TIDAC SQ Last administered on at 08:46; Start 12/20/17 at 11:30 Linezolid (Zyvox) 600 mg BID PO Last administered on 12/23/17at 08:25; Start at 11:00 Nystatin (Nystatin Oral Susp) 5 ml [id number] ; Start 12/20/17 at 13:00; Stop 12/21/17 at 14:11; Status DC Darbepoetin Mauricio (Aranesp) 60 mcg [id number] SQ Last administered on 12/20/17at 23 :22; Start 12/20/17 at 21:00 Magnesium Sulfate 50 ml @ 25 mls/hr PRN DAILY PRN IV for Mag < 1.7 on am labs; Start 12/20/17 at 09:30 Ciprofloxacin (Cipro) 500 mg Q24H PO Last administered on 12/21/17at 06:36; Start 12/21/17 at 07:00; Stop 12/21/17 at 08:54; Status DC Lactobacillus Rhamnosus (Culturelle) 1 cap BID PO Last administered on at 08:24; Start 12/20/17 at 12:00 Insulin Glargine (Lantus) 15 units QHS SQ Last administered on 12/22/17at 21:19 ; Start 12/20/17 at 21:00 Sodium Chloride 1,000 ml @ 1,000 mls/hr Q1H PRN IV hypotension; Start 12/20/17 at 12:07; Stop 12/20/17 at 18:06; Status DC Albumin Human 200 ml @ 200 mls/hr 1X PRN PRN IV Hypotension; Start 12/20/17 at 12:15; Stop 12/20/17 at 18:14; Status DC Acetaminophen (Tylenol) 500 mg 1X PRN PRN PO MILD PAIN / TEMP; Start 12/20/17 at 12:15; Stop 12/21/17 at 07:34; Status DC Diphenhydramine HCl (Benadryl) 25 mg 1X PRN PRN IV ITCHING; Start 12/20/17 at 12:15; Stop 12/21/17 at 12:14; Status Cancel Diphenhydramine HCl (Benadryl) 25 mg 1X PRN PRN IV ITCHING; Start 12/20/17 at 12:15; Stop 12/21/17 at 07:33; Status DC Labetalol HCl (Normodyne Iv Push) 10 mg PRN Q1HR PRN IVP SBP > 180; Start 12/20 at 12:15; Stop 12/21/17 at 12:14; Status DC Clonidine HCl (Catapres) 0.1 mg 1X PRN PRN PO SBP > 180; Start 12/20/17 at 12: 15; Stop 12/21/17 at 12:14; Status DC Sodium Chloride 1,000 ml @ 400 mls/hr Q2H30M PRN IV PATENCY; Start 12/20/17 at 12:07; Stop 12/21/17 at 00:06; Status DC Info (PHARMACY MONITORING -- do not chart) 1 each PRN DAILY PRN MC SEE COMMENTS ; Start 12/20/17 at 12:15 Info (PHARMACY MONITORING -- do not chart) 1 each PRN DAILY PRN MC SEE COMMENTS ; Start 12/20/17 at 12:15; Status UNV Acetaminophen (Tylenol) 650 mg PRN Q6HRS PRN PO FEVER; Start 12/20/17 at 12:45 Ondansetron HCl (Zofran) 4 mg PRN Q6HRS PRN IV NAUSEA/VOMITING Last administered on 12/23/17at 02:16; Start 12/20/17 at 12:45 Morphine Sulfate (Morphine Sulfate) 2 mg PRN Q2HR PRN IV MODERATE TO SEVERE PAIN; Start 12/20/17 at 12:45; Stop 12/22/17 at 12:20; Status DC Tramadol HCl (Ultram) 50 mg PRN Q6HRS PRN PO MILD TO MODERATE PAIN; Start 12/20 at 12:45; Stop 12/21/17 at 07:34; Status DC Docusate Sodium (Colace) 100 mg PRN DAILY PRN PO CONSTIPATION Last administered on 12/22/17at 21:08; Start 12/20/17 at 12:45 Heparin Sodium (Porcine) (Heparin Sq) 5,000 unit Q8HRS SQ Last administered on 12/21/17at 14:33; Start 12/20/17 at 14:00 Cefazolin Sodium 1 gm/Dextrose 50 ml @ 100 mls/hr DAILY IV ; Start 12/21/17 at 09:00; Status UNV Diphenhydramine HCl (Benadryl Oral Elixir) 12.5 mg PRN Q8HRS PRN PO ITCHING Last administered on 12/22/17at 22:10; Start 12/21/17 at 09:00 Cefazolin Sodium (Ancef) 1 gm Q24H IVP Last administered on 12/23/17at 10:29; Start 12/21/17 at 09:30 Sodium Chloride 1,000 ml @ 1,000 mls/hr Q1H PRN IV hypotension; Start 12/21/17 at 09:18; Stop 12/21/17 at 15:17; Status DC Sodium Chloride 1,000 ml @ 400 mls/hr Q2H30M PRN IV PATENCY; Start 12/21/17 at 09:18; Stop 12/21/17 at 23:47; Status DC Info (PHARMACY MONITORING -- do not chart) 1 each PRN DAILY PRN MC SEE COMMENTS ; Start 12/21/17 at 09:30; Status UNV Info (PHARMACY MONITORING -- do not chart) 1 each PRN DAILY PRN MC SEE COMMENTS ; Start 12/21/17 at 09:30; Status UNV Lidocaine HCl (Xylocaine-Mpf 2% Vial) 2 ml STK-MED ONCE .ROUTE ; Start 12/21/17 at 09:51; Stop 12/21/17 at 09:52; Status DC Carbamazepine (TEGretol) 200 mg BID PO Last administered on 12/23/17at 08:25; Start 12/21/17 at 14:00 Sodium Chloride 1,000 ml @ 1,000 mls/hr Q1H PRN IV hypotension; Start 12/22/17 at 10:18; Stop 12/22/17 at 16:17; Status DC Info (PHARMACY MONITORING -- do not chart) 1 each PRN DAILY PRN MC SEE COMMENTS ; Start 12/22/17 at 10:30; Status UNV Info (PHARMACY MONITORING -- do not chart) 1 each PRN DAILY PRN MC SEE COMMENTS ; Start 12/22/17 at 10:30; Status UNV Bacitracin 1 susanna PRN DAILY PRN TP TO WOUND; Start 12/23/17 at 10:00 Active Scripts Active Lidocaine 1 Each Adh..patch 1 Patch TD DAILY Percocet 10-325 Mg Tablet (Oxycodone/Acetaminophen) 1 Each Tablet 1 Tab PO Q4HRS Brilinta (Ticagrelor) 90 Mg Tablet 90 Mg PO BID 30 Days Morphine Sulfate Er (Morphine Sulfate) 15 Mg Tablet.er 15 Mg PO BID Reported Tegretol (Carbamazepine) 200 Mg Tablet 1 Tab PO BID Tramadol Hcl 50 Mg Tablet 50 Mg PO Q4HRS PRN [regranex] 1 Susanna TD DAILY Lantus Solostar (Insulin Glargine,Hum.rec.anlog) 100 Unit/1 Ml Insuln.pen 18 Unit SQ QHS Diflucan (Fluconazole) 100 Mg Tablet 100 Mg PO PRN Carvedilol 3.125 Mg Tablet 12.5 Mg PO BID Erythromycin (Erythromycin Base) 250 Mg Capsule.dr 250 Mg PO BID Cardizem Cd (Diltiazem Hcl) 180 Mg Cap.er.24h 120 Mg PO DAILY Amiodarone Hcl 200 Mg Tablet 1 Tab PO DAILY Ferric Citrate 210 Mg Tablet 210 Mg PO 3X/WEEK Nystatin 15 Gm Powder 1 Susanna TP PRN BID PRN Proventil Hfa Inhaler (Albuterol Sulfate) 6.7 Gm Hfa.aer.ad 2 Puff IH BID PRN Zofran (Ondansetron Hcl) 4 Mg Tablet 4 Mg PO Q6-8HRS PRN Nephro-Shabbir Tablet (Folic Acid/Vitamin B Comp W-C) 0.8 Mg Tablet 1 Tab PO DAILY Tricor (Fenofibrate Nanocrystallized) 145 Mg Tablet 1 Tab PO HS Lipitor (Atorvastatin Calcium) 80 Mg Tablet 80 Mg PO HS Niacin 500 Mg Tablet 500 Mg PO HS Novolog (Insulin Aspart) 100 Unit/1 Ml Cartridge 0 SQ TIDAC sliding scale Aspirin 325 Mg Tablet 325 Mg PO DAILY Furosemide 80 Mg Tablet 80 Mg PO BID Docusate Sodium 100 Mg Capsule 1 Cap PO PRN PRN Nitrostat (Nitroglycerin) 0.4 Mg Tab.subl 0.4 Mg SL PRN Q5MIN PRN Take as needed for chest pain Allergies Allergies: Coded Allergies: Sulfa (Sulfonamide Antibiotics) (Verified Allergy, Severe, Anaphylaxis, ) meropenem (Verified Allergy, Intermediate, Rash, 10/19/17) Tolerates ancef piperacillin (Verified Allergy, Intermediate, Rash, 10/19/17) Tolerates ancef strawberry (Verified Allergy, Intermediate, 10/19/17) tazobactam (Verified Allergy, Intermediate, 10/19/17) cefazolin (Verified Adverse Reaction, Intermediate, Itching, 10/19/17) Causes Vomiting fentanyl (Verified Adverse Reaction, Intermediate, Nausea and Vomiting, ) Vomiting ROS Skin: Yes Other (cellulitis of the right lower extremity) Physical Exam General: Alert, Oriented X3, Cooperative, No acute distress HEENT: Atraumatic, PERRLA, EOMI Heart: Regular rate, Normal S1, Normal S2 Abdomen: Normal bowel sounds, Soft Extremities: No clubbing, No edema, Other (right lower extremity posterior tibial Doppler signals intact and monophasic, peroneal Doppler signal intact and monophasic, dorsalis pedis Doppler signal absent) Skin: No breakdown, Other (mild cellulitis below the knee) Neuro: Normal speech, Strength at 5/5 X4 ext, Normal tone, Sensation intact, Cranial nerves 3-12 NL Psych/Mental Status: Mental status NL, Mood NL MUSCULOSKELETAL: No joint tenderness, No deformity, No swelling Vitals VITALS Vital Signs Date Time Temp Pulse Resp B/P (MAP) Pulse Ox O2 Delivery O2 Flow Rate FiO2 12/23/17 11:00 97.9 78 16 171/67 (101) 97 Room Air 97.9 Labs Labs Laboratory Tests Test 12/21/17 14:14 8/27/18 16:50 12/21/17 20:10 12/22/17 04:45 Glucose (Fingerstick) 203 mg/dL (70-99) 189 mg/dL (70-99) 75 mg/dL (70-99) Sodium Level 136 mmol/L (136-145) Potassium Level 4.3 mmol/L (3.5-5.1) Chloride Level 98 mmol/L (98-107) Carbon Dioxide Level 32 mmol/L (21-32) Anion Gap 6 (6-14) Blood Urea Nitrogen 29 mg/dL (7-20) Creatinine 4.1 mg/dL (0.6-1.0) Estimated GFR (Cockcroft-Gault) 11.4 Glucose Level 140 mg/dL (70-99) Calcium Level 8.2 mg/dL (8.5-10.1) Phosphorus Level 6.3 mg/dL (2.6-4.7) Magnesium Level 2.0 mg/dL (1.8-2.4) Creatine Kinase 76 U/L (26-192) Albumin 2.4 g/dL (3.4-5.0) Test 12/22/17 08:07 12/22/17 13:03 12/22/17 17:21 12/22/17 21:16 Glucose (Fingerstick) 141 mg/dL (70-99) 101 mg/dL (70-99) 160 mg/dL (70-99) 203 mg/dL (70-99) Test 12/23/17 07:00 12/23/17 07:53 12/23/17 10:29 Sodium Level 140 mmol/L (136-145) Potassium Level 4.5 mmol/L (3.5-5.1) Chloride Level 99 mmol/L (98-107) Carbon Dioxide Level 33 mmol/L (21-32) Anion Gap 8 (6-14) Blood Urea Nitrogen 24 mg/dL (7-20) Creatinine 3.5 mg/dL (0.6-1.0) Estimated GFR (Cockcroft-Gault) 13.7 Glucose Level 81 mg/dL (70-99) Calcium Level 7.6 mg/dL (8.5-10.1) Phosphorus Level 5.5 mg/dL (2.6-4.7) Magnesium Level 2.1 mg/dL (1.8-2.4) Creatine Kinase 68 U/L (26-192) Albumin 2.4 g/dL (3.4-5.0) Glucose (Fingerstick) 68 mg/dL (70-99) 141 mg/dL (70-99) Laboratory Tests Test 12/22/17 13:03 12/22/17 17:21 12/22/17 21:16 12/23/17 07:00 Glucose (Fingerstick) 101 mg/dL (70-99) 160 mg/dL (70-99) 203 mg/dL (70-99) Sodium Level 140 mmol/L (136-145) Potassium Level 4.5 mmol/L (3.5-5.1) Chloride Level 99 mmol/L (98-107) Carbon Dioxide Level 33 mmol/L (21-32) Anion Gap 8 (6-14) Blood Urea Nitrogen 24 mg/dL (7-20) Creatinine 3.5 mg/dL (0.6-1.0) Estimated GFR (Cockcroft-Gault) 13.7 Glucose Level 81 mg/dL (70-99) Calcium Level 7.6 mg/dL (8.5-10.1) Phosphorus Level 5.5 mg/dL (2.6-4.7) Magnesium Level 2.1 mg/dL (1.8-2.4) Creatine Kinase 68 U/L (26-192) Albumin 2.4 g/dL (3.4-5.0) Test 12/23/17 07:53 12/23/17 10:29 Glucose (Fingerstick) 68 mg/dL (70-99) 141 mg/dL (70-99) Assessment/Plan Assessment/Plan Right lower extremity cellulitis--the patient has improved cellulitis while on IV antibiotic therapy. This is not completely resolved at this time. I would recommend one more night with IV antibiotic therapy with plan discharge tomorrow on oral therapy. Next Peripheral arterial disease--the patient certainly has known tibial vessel occlusive disease with monophasic arterial flow. She has healed wounds in the right foot. At this time I see no indication for peripheral arterial intervention or angiography. If she develops a nonhealing wound, the next step would be to pursue an abdominal aortogram with right lower extremity angiogram. Therefore no vas for surgery intervention is necessary at this time. I would maintain the patient on antiplatelet therapy and statin therapy. Next End-stage renal disease on dialysis--the patient has a right upper extremity brachiocephalic fistula but now has converted to peritoneal dialysis. She'll continue to follow with her nephrology team for this. Vascular surgery will sign off at this time. Please not hesitate to contact us if there are any questions or concerns regarding her management. ROSMERY QUIROGA DO Dec 23, 2017 11:20
[2017-12-23] MEDS: diphenhydrAMINE ORAL ELIXIR 12.5 MG/5 ML ML PO PRN (11:54)
[2017-12-23] MEDS: oxyCODONE/APAP 10/325 1 TAB TABLET PO PRN (13:39)
[2017-12-23 15:00] VITALS: BP 114/53
[2017-12-23] MEDS: NIACIN ER 500 MG TABLET.ER PO SCH (17:09)
[2017-12-23 19:00] VITALS: BP 114/53
[2017-12-23] MEDS: FENOFIBRATE,MICRONIZED 134 MG CAPSULE PO SCH (20:45)
[2017-12-23] MEDS: ATORVASTATIN CALCIUM 40 MG TABLET. PO SCH (20:46)
[2017-12-23] MEDS: INSULIN GLARGINE 300 UNITS/3 ML INSULN.PEN. SQ SCH (20:50)
[2017-12-23 22:37] VITALS: BP 124/60
[2017-12-24 03:32] VITALS: BP 138/70
[2017-12-24] MEDS: MORPHINE SULFATE 2 MG/ML VIAL. IV PRN ×2 (03:48→08:10)
[2017-12-24 05:49] LABS: BASO # 0.1 x10^3/uL (0.0-0.2); BASO % 1 % (0-3); EOS # 0.5 x10^3/uL (0.0-0.7); EOS % 4 % (0-3); HEMATOCRIT 30.6 % (36.0-47.0); HEMOGLOBIN 10.4 g/dL (12.0-15.5); LYMPH # 0.8 x10^3/uL (1.0-4.8); LYMPH % 8 % (24-48); MEAN CORPUSCULAR HEMOGLOBIN 31 pg (25-35); MEAN CORPUSCULAR HGB CONC 34 g/dL (31-37); MEAN CORPUSCULAR VOLUME 93 fL (79-100); MONO # 0.9 x10^3/uL (0.0-1.1); MONO % 8 % (0-9); NEUT # 8.6 x10^3uL (1.8-7.7); NEUT % 79 % (31-73); PLATELET COUNT 447 x10^3/uL (140-400); RED CELL DISTRIBUTION WIDTH 13.8 % (11.5-14.5); WHITE BLOOD COUNT 10.9 x10^3/uL (4.0-11.0)
[2017-12-24] MEDS: HEPARIN PF for SUB-Q USE 5,000 UNIT/0.5 ML VIAL. SQ SCH (06:00)
[2017-12-24 06:01] LABS: ALBUMIN 2.6 g/dL (3.4-5.0); CALCIUM 7.5 mg/dL (8.5-10.1); CREATININE 4.8 mg/dL (0.6-1.0); GFR 9.5; MAGNESIUM 2.1 mg/dL (1.8-2.4); POTASSIUM 4.1 mmol/L (3.5-5.1)
[2017-12-24 07:00] VITALS: BP 130/62
[2017-12-24] MEDS: INSULIN LISPRO 300 UNITS/3 ML INSULN.PEN. SQ SCH ×4 (07:30→12:00)
[2017-12-24] MEDS ORDERED: IV NORMAL SALINE 1000ML BAG 1,000 ML IV PRN ×2 (07:49)
[2017-12-24] MEDS ORDERED: ACETAMINOPHEN 500 MG TABLET PO PRN (08:00)
[2017-12-24] MEDS ORDERED: diphenhydrAMINE 50 MG/ML VIAL IV PRN ×2 (08:00)
[2017-12-24] MEDS ORDERED: DIALYSIS PATIENT. MC PRN (08:00)
[2017-12-24] MEDS: CARVEDILOL 3.125 MG TABLET. PO SCH (08:00)
[2017-12-24] MEDS: diphenhydrAMINE ORAL ELIXIR 12.5 MG/5 ML ML PO PRN (08:09)
--- NOTE | 2017-12-24 08:15 | PDOC ---
Infectious Disease Note Subjective: Subjective pt is going for dialysis RLE swelling and discomfort at area of abrasion remains no f/c/n/v/d ROS: ROS Negative except for above. Vital Signs: Vital Signs Vital Signs Date Time Temp Pulse Resp B/P (MAP) Pulse Ox O2 Delivery O2 Flow Rate FiO2 12/24/17 08:10 100 Room Air 12/24/17 04:24 16 12/24/17 03:32 98.0 84 138/70 (92) 98.0 Physical Exam: PHYSICAL EXAM rt leg is red and swollen with a small open wound , medial aspect. Medications: Inpatient Meds: Current Medications Medications (Trade) Dose Ordered Sig/Martin Start Time Stop Time Status Last Admin Dose Admin Acetaminophen (Tylenol) 500 mg 1X PRN PRN 12/24/17 08:00 12/25/17 07:59 Albumin Human 200 ml @ 200 mls/hr 1X PRN PRN 12/20/17 12:15 12/20/17 18:14 DC Albuterol Sulfate (Ventolin Neb Soln) 2.5 mg PRN BID PRN 12/20/17 02:45 Amiodarone HCl (Cordarone) 200 mg DAILY 12/20/17 09:00 12/23/17 10:30 200 MG Atorvastatin Calcium (Lipitor) 80 mg HS 12/20/17 21:00 12/23/17 20:46 80 MG Bacitracin 1 erich PRN DAILY PRN 12/23/17 10:00 Calcium Gluconate (Calcium Gluconate) 1,000 mg 1X ONCE 12/20/17 06:00 12/20/17 06:01 UNV Calcium Gluconate 1000 mg/Dextrose 110 ml @ 220 mls/hr 1X ONCE 12/20/17 06:15 12/20/17 06:44 DC 12/20/17 06:21 220 MLS/HR Carbamazepine (TEGretol) 200 mg BID 12/21/17 14:00 12/23/17 20:46 200 MG Carvedilol (Coreg) 12.5 mg [id number] 12/20/17 08:00 12/23/17 17:10 12.5 MG Cefazolin Sodium (Ancef) 1 gm Q24H 12/21/17 09:30 12/23/17 10:29 1 GM Cefazolin Sodium 1 gm/Dextrose 50 ml @ 100 mls/hr DAILY 12/21/17 09:00 UNV Ciprofloxacin (Cipro) 500 mg Q24H 12/21/17 07:00 12/21/17 08:54 DC 12/21/17 06:36 500 MG Clindamycin HCl (Cleocin) 150 mg TID 12/20/17 09:00 12/20/17 09:08 DC 12/20/17 08:42 150 MG Clonidine HCl (Catapres) 0.1 mg 1X PRN PRN 12/20/17 12:15 12/21/17 12:14 DC Darbepoetin Mauricio (Aranesp) 60 mcg [id number] 12/20/17 21:00 12/20/17 23:22 60 MCG Dextrose (Dextrose 50%-Water Syringe) 12.5 gm PRN Q15MIN PRN 12/20/17 08:45 12/23/17 08:29 12.5 GM Diltiazem HCl (Cardizem 24hr Cd) 120 mg DAILY 12/20/17 09:00 12/23/17 10:30 120 MG Diphenhydramine HCl (Benadryl Oral Elixir) 12.5 mg PRN Q8HRS PRN 12/21/17 09:00 12/24/17 08:09 12.5 MG Diphenhydramine HCl (Benadryl) 25 mg 1X PRN PRN 12/24/17 08:00 12/25/17 07:59 Docusate Sodium (Colace) 100 mg PRN DAILY PRN 12/20/17 12:45 12/22/17 21:08 100 MG Erythromycin (E-Mycin) 250 mg BID 12/20/17 09:00 12/23/17 20:46 250 MG Fenofibrate (Lofibra) 134 mg HS 12/20/17 21:00 12/23/17 20:45 134 MG Fentanyl Citrate (Fentanyl 2ml Vial) 50 mcg PRN Q2HR PRN 12/19/17 21:45 12/20/17 10:00 DC Fluconazole (Diflucan) 100 mg PRN DAILY PRN 12/20/17 00:30 12/20/17 11:34 DC Furosemide (Lasix) 80 mg [id number] 12/20/17 09:00 12/23/17 17:09 80 MG Heparin Sodium (Porcine) (Heparin Sq) 5,000 unit Q8HRS 12/20/17 14:00 12/21/17 14:33 5,000 UNIT Info (PHARMACY MONITORING -- do not chart) 1 each PRN DAILY PRN 12/24/17 08:00 UNV Insulin Glargine (Lantus) 15 units QHS 12/20/17 21:00 12/23/17 20:50 15 UNITS Insulin Human Lispro (HumaLOG) 10 units TIDAC 12/20/17 11:30 12/20/17 08:46 5 UNITS Labetalol HCl (Normodyne Iv Push) 10 mg PRN Q1HR PRN 12/20/17 12:15 12/21/17 12:14 DC Lactobacillus Rhamnosus (Culturelle) 1 cap BID 12/20/17 12:00 12/23/17 20:46 1 CAP Lidocaine (Lidoderm) 1 patch DAILY 12/20/17 09:00 12/21/17 08:42 1 PATCH Lidocaine HCl (Xylocaine-Mpf 2% Vial) 2 ml STK-MED ONCE 12/21/17 09:51 12/21/17 09:52 DC Linezolid (Zyvox) 600 mg BID 12/20/17 11:00 12/23/17 15:29 DC 12/23/17 08:25 600 MG Magnesium Sulfate 50 ml @ 25 mls/hr PRN DAILY PRN 12/20/17 09:30 Morphine Sulfate (Morphine Sulfate) 2 mg PRN Q2HR PRN 12/20/17 12:45 12/22/17 12:20 DC Morphine Sulfate (Ms Contin) 15 mg BID 12/20/17 09:00 12/23/17 20:46 15 MG Niacin (Slo-Niacin) 500 mg QEVNG 12/20/17 18:00 12/23/17 17:09 500 MG Nitroglycerin (Nitrostat) 0.4 mg PRN Q5MIN PRN 12/20/17 00:30 Non-Formulary Medication (Albuterol Sulfate (Proventil Hfa Inhaler)) 2 puff BID PRN 12/20/17 00:30 UNV Non-Formulary Medication (Ferric Citrate ) 210 mg 3X/WEEK 12/21/17 09:00 12/22/17 07:20 DC Non-Formulary Medication ([regranex] ) 1 erich DAILY 12/20/17 09:00 12/22/17 07:20 DC Nystatin (Nystatin Oral Susp) 5 ml [id number] 12/20/17 13:00 12/21/17 14:11 DC Nystatin (Nystop) 1 erich PRN BID PRN 12/20/17 00:30 Ondansetron HCl (Zofran Odt) 4 mg STK-MED ONCE 12/21/17 06:45 12/23/17 11:53 DC Ondansetron HCl (Zofran) 4 mg PRN Q6HRS PRN 12/20/17 12:45 12/23/17 02:16 4 MG Oxycodone/ Acetaminophen (Percocet 10/325) 1 tab PRN Q4HRS PRN 12/20/17 02:00 12/23/17 13:39 1 TAB Oxycodone/ Acetaminophen (Percocet 5/325) 1 tab 1X ONCE 12/19/17 20:45 12/19/17 20:46 DC 12/19/17 20:51 1 TAB Sodium Chloride 1,000 ml @ 400 mls/hr Q2H30M PRN 12/24/17 07:49 12/24/17 19:48 Ticagrelor (Brilinta) 90 mg BID 12/20/17 09:00 12/23/17 20:45 90 MG Tramadol HCl (Ultram) 50 mg PRN Q6HRS PRN 12/20/17 12:45 12/21/17 07:34 DC Vitamin B Complex/ Vitamin C (Melly-Shabbir) 1 tab DAILY 12/20/17 09:00 12/23/17 10:29 1 TAB Labs: Lab Laboratory Tests Test 12/23/17 10:29 12/23/17 12:17 12/23/17 16:54 12/23/17 20:43 Glucose (Fingerstick) 141 mg/dL (70-99) 147 mg/dL (70-99) 288 mg/dL (70-99) 251 mg/dL (70-99) Test 12/24/17 04:55 12/24/17 07:36 White Blood Count 10.9 x10^3/uL (4.0-11.0) Red Blood Count 3.30 x10^6/uL (3.50-5.40) Hemoglobin 10.4 g/dL (12.0-15.5) Hematocrit 30.6 % (36.0-47.0) Mean Corpuscular Volume 93 fL (79-100) Mean Corpuscular Hemoglobin 31 pg (25-35) Mean Corpuscular Hemoglobin Concent 34 g/dL (31-37) Red Cell Distribution Width 13.8 % (11.5-14.5) Platelet Count 447 x10^3/uL (140-400) Neutrophils (%) (Auto) 79 % (31-73) Lymphocytes (%) (Auto) 8 % (24-48) Monocytes (%) (Auto) 8 % (0-9) Eosinophils (%) (Auto) 4 % (0-3) Basophils (%) (Auto) 1 % (0-3) Neutrophils # (Auto) 8.6 x10^3uL (1.8-7.7) Lymphocytes # (Auto) 0.8 x10^3/uL (1.0-4.8) Monocytes # (Auto) 0.9 x10^3/uL (0.0-1.1) Eosinophils # (Auto) 0.5 x10^3/uL (0.0-0.7) Basophils # (Auto) 0.1 x10^3/uL (0.0-0.2) Sodium Level 137 mmol/L (136-145) Potassium Level 4.1 mmol/L (3.5-5.1) Chloride Level 96 mmol/L (98-107) Carbon Dioxide Level 32 mmol/L (21-32) Anion Gap 9 (6-14) Blood Urea Nitrogen 39 mg/dL (7-20) Creatinine 4.8 mg/dL (0.6-1.0) Estimated GFR (Cockcroft-Gault) 9.5 Glucose Level 132 mg/dL (70-99) Calcium Level 7.5 mg/dL (8.5-10.1) Phosphorus Level 6.0 mg/dL (2.6-4.7) Magnesium Level 2.1 mg/dL (1.8-2.4) Creatine Kinase 83 U/L (26-192) Albumin 2.6 g/dL (3.4-5.0) Glucose (Fingerstick) 127 mg/dL (70-99) Objective: Assessment: 1. Right lower extremity swelling with superficial skin breakdown from injury on 12/15/2017 with abrasion and , with subsequent redness and swelling, treated with outpatient clindamycin, now on linezolid, 2. history of infected diabetic foot ulcer with osteomyelitis of right great toe in the past, methicillin-sensitive Staphylococcus aureus in the past 2. Right dorsal second toe skin breakdown from shoe abrasion, does not look infected at this time. 3. Left below-knee amputation from left calcaneal osteomyelitis in 2014. 4. End-stage renal disease, on dialysis. 5. Leukocytosis. 6. ANTIBIOTIC ALLERGY TO MEROPENEM, PIPERACILLIN AND TAZOBACTAM CAUSING PEELING AND BLEEDING OF THE SKIN. ALSO, SULFA. TOLERATES KEFLEX AND HAS BEEN ON CEFAZOLIN, THOUGH HAS CAUSED ITCHING. 7. History of recent urinary tract infection, though urine cultures are negative, on Cipro POA for 5 days. 8. PAD Vascular evaluation noted Plan: Plan of Care can dc home on keflex for 5 more days vascular input noted optimal edema control probiotics elevate leg GRACIELA LÓPEZ MD Dec 24, 2017 08:15
[2017-12-24] MEDS: LACTOBACILLUS RHAMNOSUS GG 1 CAPSULE. PO SCH (08:21)
[2017-12-24] MEDS: FUROSEMIDE 80 MG TABLET. PO SCH (08:22)
[2017-12-24] MEDS: MORPHINE ER 15 MG TABLET.ER PO SCH (08:22)
[2017-12-24] MEDS: carBAMazepine 200 MG TABLET PO SCH (08:22)
[2017-12-24] MEDS: TICAGRELOR 90 MG TABLET. PO SCH (08:22)
[2017-12-24] MEDS: ERYTHROMYCIN BASE 250 MG TABLET PO SCH (08:22)
[2017-12-24] MEDS: LIDOCAINE (700MG/PATCH) PATCH. TD SCH (08:23)
--- NOTE | 2017-12-24 09:09 | PDOC ---
PROGRESS NOTES Chief Complaint Chief Complaint hypocalcemia on PD ESRD on PD rt leg cellulitis slow but improving h/o CAD WITH 8 stents. CABG h/o VRE, MRSA, ALlergic to zosyn, meropenum dm2 on insulin left leg BKA chronic back pain Patent right and left iliac arteries were visualized demonstrating abnormal monophasic Doppler blood flow. This indicates aortoiliac inflow disease. no vas surgery plans for intervention now plan: vascular surgery consult rec one additional day of iv antibiotics, completed today fu with renal, need HD today PD held home meds, slightly decrease insulin, ssi, refused novolog dc clinda, add zyvox, dc cipro. rt leg US ID consulted, add diflucan and cefazolin got 2g Calcium in icu wound care consult dvt ppx home on keflex 500mg po bid x 10 days pain management consult to see wound clinic next week d/c with home health dialysis today History of Present Illness History of Present Illness ROS: no fever, chills, sob or chest pain rt leg pain worse, US no abscess seems ok to take keflex and cefazolin before Ca better with HD and repletion Vitals Vitals Vital Signs Date Time Temp Pulse Resp B/P (MAP) Pulse Ox O2 Delivery O2 Flow Rate FiO2 12/24/17 08:22 100 Room Air 12/24/17 07:00 98.3 80 18 130/62 (84) 98.3 Physical Exam Physical Exam rt leg is red and swollen with a small open wound , medial aspect. General: Alert, Oriented X3, Cooperative, No acute distress Heart: Regular rate, Normal S1, Normal S2 Lungs: Clear Abdomen: Normal bowel sounds, Soft Extremities: No clubbing, No cyanosis, Normal pulses Skin: No breakdown Labs LABS Laboratory Tests Test 12/23/17 10:29 12/23/17 12:17 12/23/17 16:54 12/23/17 20:43 Glucose (Fingerstick) 141 mg/dL (70-99) 147 mg/dL (70-99) 288 mg/dL (70-99) 251 mg/dL (70-99) Test 12/24/17 04:55 12/24/17 07:36 White Blood Count 10.9 x10^3/uL (4.0-11.0) Red Blood Count 3.30 x10^6/uL (3.50-5.40) Hemoglobin 10.4 g/dL (12.0-15.5) Hematocrit 30.6 % (36.0-47.0) Mean Corpuscular Volume 93 fL (79-100) Mean Corpuscular Hemoglobin 31 pg (25-35) Mean Corpuscular Hemoglobin Concent 34 g/dL (31-37) Red Cell Distribution Width 13.8 % (11.5-14.5) Platelet Count 447 x10^3/uL (140-400) Neutrophils (%) (Auto) 79 % (31-73) Lymphocytes (%) (Auto) 8 % (24-48) Monocytes (%) (Auto) 8 % (0-9) Eosinophils (%) (Auto) 4 % (0-3) Basophils (%) (Auto) 1 % (0-3) Neutrophils # (Auto) 8.6 x10^3uL (1.8-7.7) Lymphocytes # (Auto) 0.8 x10^3/uL (1.0-4.8) Monocytes # (Auto) 0.9 x10^3/uL (0.0-1.1) Eosinophils # (Auto) 0.5 x10^3/uL (0.0-0.7) Basophils # (Auto) 0.1 x10^3/uL (0.0-0.2) Sodium Level 137 mmol/L (136-145) Potassium Level 4.1 mmol/L (3.5-5.1) Chloride Level 96 mmol/L (98-107) Carbon Dioxide Level 32 mmol/L (21-32) Anion Gap 9 (6-14) Blood Urea Nitrogen 39 mg/dL (7-20) Creatinine 4.8 mg/dL (0.6-1.0) Estimated GFR (Cockcroft-Gault) 9.5 Glucose Level 132 mg/dL (70-99) Calcium Level 7.5 mg/dL (8.5-10.1) Phosphorus Level 6.0 mg/dL (2.6-4.7) Magnesium Level 2.1 mg/dL (1.8-2.4) Creatine Kinase 83 U/L (26-192) Albumin 2.6 g/dL (3.4-5.0) Glucose (Fingerstick) 127 mg/dL (70-99) Assessment and Plan Assessmemt and Plan Problems Medical Problems: (1) End-stage renal disease on hemodialysis Status: Acute (2) Hypocalcemia Status: Acute Comment Review of Relevant I have reviewed the following items bert (where applicable) has been applied. Labs Laboratory Tests Test 12/22/17 13:03 12/22/17 17:21 12/22/17 21:16 12/23/17 07:00 Glucose (Fingerstick) 101 mg/dL (70-99) 160 mg/dL (70-99) 203 mg/dL (70-99) Sodium Level 140 mmol/L (136-145) Potassium Level 4.5 mmol/L (3.5-5.1) Chloride Level 99 mmol/L (98-107) Carbon Dioxide Level 33 mmol/L (21-32) Anion Gap 8 (6-14) Blood Urea Nitrogen 24 mg/dL (7-20) Creatinine 3.5 mg/dL (0.6-1.0) Estimated GFR (Cockcroft-Gault) 13.7 Glucose Level 81 mg/dL (70-99) Calcium Level 7.6 mg/dL (8.5-10.1) Phosphorus Level 5.5 mg/dL (2.6-4.7) Magnesium Level 2.1 mg/dL (1.8-2.4) Creatine Kinase 68 U/L (26-192) Albumin 2.4 g/dL (3.4-5.0) Test 12/23/17 07:53 12/23/17 10:29 12/23/17 12:17 12/23/17 16:54 Glucose (Fingerstick) 68 mg/dL (70-99) 141 mg/dL (70-99) 147 mg/dL (70-99) 288 mg/dL (70-99) Test 12/23/17 20:43 12/24/17 04:55 12/24/17 07:36 Glucose (Fingerstick) 251 mg/dL (70-99) 127 mg/dL (70-99) White Blood Count 10.9 x10^3/uL (4.0-11.0) Red Blood Count 3.30 x10^6/uL (3.50-5.40) Hemoglobin 10.4 g/dL (12.0-15.5) Hematocrit 30.6 % (36.0-47.0) Mean Corpuscular Volume 93 fL (79-100) Mean Corpuscular Hemoglobin 31 pg (25-35) Mean Corpuscular Hemoglobin Concent 34 g/dL (31-37) Red Cell Distribution Width 13.8 % (11.5-14.5) Platelet Count 447 x10^3/uL (140-400) Neutrophils (%) (Auto) 79 % (31-73) Lymphocytes (%) (Auto) 8 % (24-48) Monocytes (%) (Auto) 8 % (0-9) Eosinophils (%) (Auto) 4 % (0-3) Basophils (%) (Auto) 1 % (0-3) Neutrophils # (Auto) 8.6 x10^3uL (1.8-7.7) Lymphocytes # (Auto) 0.8 x10^3/uL (1.0-4.8) Monocytes # (Auto) 0.9 x10^3/uL (0.0-1.1) Eosinophils # (Auto) 0.5 x10^3/uL (0.0-0.7) Basophils # (Auto) 0.1 x10^3/uL (0.0-0.2) Sodium Level 137 mmol/L (136-145) Potassium Level 4.1 mmol/L (3.5-5.1) Chloride Level 96 mmol/L (98-107) Carbon Dioxide Level 32 mmol/L (21-32) Anion Gap 9 (6-14) Blood Urea Nitrogen 39 mg/dL (7-20) Creatinine 4.8 mg/dL (0.6-1.0) Estimated GFR (Cockcroft-Gault) 9.5 Glucose Level 132 mg/dL (70-99) Calcium Level 7.5 mg/dL (8.5-10.1) Phosphorus Level 6.0 mg/dL (2.6-4.7) Magnesium Level 2.1 mg/dL (1.8-2.4) Creatine Kinase 83 U/L (26-192) Albumin 2.6 g/dL (3.4-5.0) Laboratory Tests Test 12/23/17 10:29 12/23/17 12:17 12/23/17 16:54 12/23/17 20:43 Glucose (Fingerstick) 141 mg/dL (70-99) 147 mg/dL (70-99) 288 mg/dL (70-99) 251 mg/dL (70-99) Test 12/24/17 04:55 12/24/17 07:36 White Blood Count 10.9 x10^3/uL (4.0-11.0) Red Blood Count 3.30 x10^6/uL (3.50-5.40) Hemoglobin 10.4 g/dL (12.0-15.5) Hematocrit 30.6 % (36.0-47.0) Mean Corpuscular Volume 93 fL (79-100) Mean Corpuscular Hemoglobin 31 pg (25-35) Mean Corpuscular Hemoglobin Concent 34 g/dL (31-37) Red Cell Distribution Width 13.8 % (11.5-14.5) Platelet Count 447 x10^3/uL (140-400) Neutrophils (%) (Auto) 79 % (31-73) Lymphocytes (%) (Auto) 8 % (24-48) Monocytes (%) (Auto) 8 % (0-9) Eosinophils (%) (Auto) 4 % (0-3) Basophils (%) (Auto) 1 % (0-3) Neutrophils # (Auto) 8.6 x10^3uL (1.8-7.7) Lymphocytes # (Auto) 0.8 x10^3/uL (1.0-4.8) Monocytes # (Auto) 0.9 x10^3/uL (0.0-1.1) Eosinophils # (Auto) 0.5 x10^3/uL (0.0-0.7) Basophils # (Auto) 0.1 x10^3/uL (0.0-0.2) Sodium Level 137 mmol/L (136-145) Potassium Level 4.1 mmol/L (3.5-5.1) Chloride Level 96 mmol/L (98-107) Carbon Dioxide Level 32 mmol/L (21-32) Anion Gap 9 (6-14) Blood Urea Nitrogen 39 mg/dL (7-20) Creatinine 4.8 mg/dL (0.6-1.0) Estimated GFR (Cockcroft-Gault) 9.5 Glucose Level 132 mg/dL (70-99) Calcium Level 7.5 mg/dL (8.5-10.1) Phosphorus Level 6.0 mg/dL (2.6-4.7) Magnesium Level 2.1 mg/dL (1.8-2.4) Creatine Kinase 83 U/L (26-192) Albumin 2.6 g/dL (3.4-5.0) Glucose (Fingerstick) 127 mg/dL (70-99) Microbiology 12/19/17 Blood Culture - Preliminary, Resulted NO GROWTH AFTER 4 DAYS Medications Current Medications Oxycodone/ Acetaminophen (Percocet 5/325) 1 tab 1X ONCE PO Last administered on 12/19/17at 20:51; Start 12/19/17 at 20:45; Stop 12/19/17 at 20:46; Status DC Calcium Gluconate (Calcium Gluconate) 1,000 mg 1X ONCE IVP Last administered on 12/19/17at 22:07; Start 12/19/17 at 21:30; Stop 12/19/17 at 21:31; Status DC Ondansetron HCl (Zofran) 4 mg PRN Q8HRS PRN IV NAUSEA/VOMITING; Start 12/19/17 at 21:45; Stop 12/20/17 at 21:44; Status DC Fentanyl Citrate (Fentanyl 2ml Vial) 50 mcg PRN Q2HR PRN IV PAIN; Start at 21:45; Stop 12/20/17 at 10:00; Status DC Morphine Sulfate (Morphine Sulfate) 2 mg PRN Q2HR PRN IV PAIN Last administered on 12/24/17 08:10; Start 12/20/17 at 00:30 Amiodarone HCl (Cordarone) 200 mg DAILY PO Last administered on 12/23/17 10:30 ; Start 12/20/17 at 09:00 Carvedilol (Coreg) 12.5 mg BIDWMEALS PO Last administered on 12/23/17 17:10; Start 12/20/17 at 08:00 Vitamin B Complex/ Vitamin C (Melly-Shabbir) 1 tab DAILY PO Last administered on 10:29; Start 12/20/17 at 09:00 Furosemide (Lasix) 80 mg [id number] PO Last administered on 12/24/17 08:22; Start 12/20/17 at 09:00 Insulin Glargine (Lantus) 18 units QHS SQ ; Start 12/20/17 at 21:00; Stop at 21:00; Status DC Morphine Sulfate (Ms Contin) 15 mg BID PO Last administered on 12/24/17at 08:22 ; Start 12/20/17 at 09:00 Nitroglycerin (Nitrostat) 0.4 mg PRN Q5MIN PRN SL CHEST PAIN; Start 12/20/17 at 00:30 Nystatin (Nystop) 1 susanna PRN BID PRN TP SKIN BREAKDOWN; Start 12/20/17 at 00:30 Oxycodone/ Acetaminophen (Percocet 10/325) 1 tab Q4HRS PO ; Start 12/20/17 at 04 :00; Status Cancel Ticagrelor (Brilinta) 90 mg BID PO Last administered on 12/24/17at 08:22; Start 12/20/17 at 09:00 Tramadol HCl (Ultram) 50 mg PRN Q4HRS PRN PO HEADACHE, MILD PAIN; Start at 00:30 Non-Formulary Medication (Albuterol Sulfate (Proventil Hfa Inhaler)) 2 puff BID PRN IH FOR ASTHMA; Start 12/20/17 at 00:30; Status UNV Atorvastatin Calcium (Lipitor) 80 mg HS PO Last administered on 12/23/17at 20:46 ; Start 12/20/17 at 21:00 Diltiazem HCl (Cardizem 24hr Cd) 120 mg DAILY PO Last administered on at 10:30; Start 12/20/17 at 09:00 Erythromycin (E-Mycin) 250 mg BID PO Last administered on 12/24/17at 08:22; Start 12/20/17 at 09:00 Fenofibrate (Lofibra) 134 mg HS PO Last administered on 12/23/17at 20:45; Start 12/20/17 at 21:00 Non-Formulary Medication (Ferric Citrate ) 210 mg 3X/WEEK PO ; Start 12/21/17 at 09:00; Stop 12/22/17 at 07:20; Status DC Fluconazole (Diflucan) 100 mg PRN DAILY PRN PO YEAST INFECTION; Start 12/20/17 at 00:30; Stop 12/20/17 at 11:34; Status DC Lidocaine (Lidoderm) 1 patch DAILY TD Last administered on 12/21/17at 08:42; Start 12/20/17 at 09:00 Niacin (Slo-Niacin) 500 mg QEVNG PO Last administered on 12/23/17at 17:09; Start 12/20/17 at 18:00 Ondansetron HCl (Zofran Odt) 4 mg PRN Q6HRS PRN PO NAUSEA/VOMITING Last administered on 12/21/17at 06:34; Start 12/20/17 at 00:30 Non-Formulary Medication ([regranex] ) 1 susanna DAILY TD ; Start 12/20/17 at 09:00 ; Stop 12/22/17 at 07:20; Status DC Ciprofloxacin (Cipro) 500 mg [id number] PO Last administered on 12/20/17at 06:21; Start 12/20/17 at 07:00; Stop 12/20/17 at 10:32; Status DC Clindamycin HCl (Cleocin) 150 mg TID PO Last administered on 12/20/17at 08:42; Start 12/20/17 at 09:00; Stop 12/20/17 at 09:08; Status DC Oxycodone/ Acetaminophen (Percocet 10/325) 1 tab PRN Q4HRS PRN PO MODERATE- SEVERE PAIN Last administered on 12/23/17at 13:39; Start 12/20/17 at 02:00 Albuterol Sulfate (Ventolin Neb Soln) 2.5 mg PRN BID PRN NEB SHORTNESS OF BREATH; Start 12/20/17 at 02:45 Calcium Gluconate (Calcium Gluconate) 1,000 mg 1X ONCE IVP ; Start 12/20/17 at 06:00; Stop 12/20/17 at 06:01; Status UNV Calcium Gluconate 1000 mg/Dextrose 110 ml @ 220 mls/hr 1X ONCE IV Last administered on 12/20/17at 06:21; Start 12/20/17 at 06:15; Stop 12/20/17 at 06:44 ; Status DC Insulin Human Lispro (HumaLOG) 0-9 UNITS TIDWMEALS SQ Last administered on 12/23at 17:20; Start 12/20/17 at 12:00 Dextrose (Dextrose 50%-Water Syringe) 12.5 gm PRN Q15MIN PRN IV SEE COMMENTS Last administered on 12/23/17at 08:29; Start 12/20/17 at 08:45 Insulin Human Lispro (HumaLOG) 10 units TIDAC SQ Last administered on at 08:46; Start 12/20/17 at 11:30 Linezolid (Zyvox) 600 mg BID PO Last administered on 12/23/17at 08:25; Start at 11:00; Stop 12/23/17 at 15:29; Status DC Nystatin (Nystatin Oral Susp) 5 ml [id number] ; Start 12/20/17 at 13:00; Stop 12/21/17 at 14:11; Status DC Darbepoetin Mauricio (Aranesp) 60 mcg [id number] SQ Last administered on 12/20/17at 23 :22; Start 12/20/17 at 21:00 Magnesium Sulfate 50 ml @ 25 mls/hr PRN DAILY PRN IV for Mag < 1.7 on am labs; Start 12/20/17 at 09:30 Ciprofloxacin (Cipro) 500 mg Q24H PO Last administered on 12/21/17at 06:36; Start 12/21/17 at 07:00; Stop 12/21/17 at 08:54; Status DC Lactobacillus Rhamnosus (Culturelle) 1 cap BID PO Last administered on at 08:21; Start 12/20/17 at 12:00 Insulin Glargine (Lantus) 15 units QHS SQ Last administered on 12/23/17at 20:50 ; Start 12/20/17 at 21:00 Sodium Chloride 1,000 ml @ 1,000 mls/hr Q1H PRN IV hypotension; Start 12/20/17 at 12:07; Stop 12/20/17 at 18:06; Status DC Albumin Human 200 ml @ 200 mls/hr 1X PRN PRN IV Hypotension; Start 12/20/17 at 12:15; Stop 12/20/17 at 18:14; Status DC Acetaminophen (Tylenol) 500 mg 1X PRN PRN PO MILD PAIN / TEMP; Start 12/20/17 at 12:15; Stop 12/21/17 at 07:34; Status DC Diphenhydramine HCl (Benadryl) 25 mg 1X PRN PRN IV ITCHING; Start 12/20/17 at 12:15; Stop 12/21/17 at 12:14; Status Cancel Diphenhydramine HCl (Benadryl) 25 mg 1X PRN PRN IV ITCHING; Start 12/20/17 at 12:15; Stop 12/21/17 at 07:33; Status DC Labetalol HCl (Normodyne Iv Push) 10 mg PRN Q1HR PRN IVP SBP > 180; Start 12/20 at 12:15; Stop 12/21/17 at 12:14; Status DC Clonidine HCl (Catapres) 0.1 mg 1X PRN PRN PO SBP > 180; Start 12/20/17 at 12: 15; Stop 12/21/17 at 12:14; Status DC Sodium Chloride 1,000 ml @ 400 mls/hr Q2H30M PRN IV PATENCY; Start 12/20/17 at 12:07; Stop 12/21/17 at 00:06; Status DC Info (PHARMACY MONITORING -- do not chart) 1 each PRN DAILY PRN MC SEE COMMENTS ; Start 12/20/17 at 12:15 Info (PHARMACY MONITORING -- do not chart) 1 each PRN DAILY PRN MC SEE COMMENTS ; Start 12/20/17 at 12:15; Status UNV Acetaminophen (Tylenol) 650 mg PRN Q6HRS PRN PO FEVER; Start 12/20/17 at 12:45 Ondansetron HCl (Zofran) 4 mg PRN Q6HRS PRN IV NAUSEA/VOMITING Last administered on 12/23/17at 02:16; Start 12/20/17 at 12:45 Morphine Sulfate (Morphine Sulfate) 2 mg PRN Q2HR PRN IV MODERATE TO SEVERE PAIN; Start 12/20/17 at 12:45; Stop 12/22/17 at 12:20; Status DC Tramadol HCl (Ultram) 50 mg PRN Q6HRS PRN PO MILD TO MODERATE PAIN; Start 12/20 at 12:45; Stop 12/21/17 at 07:34; Status DC Docusate Sodium (Colace) 100 mg PRN DAILY PRN PO CONSTIPATION Last administered on 12/22/17at 21:08; Start 12/20/17 at 12:45 Heparin Sodium (Porcine) (Heparin Sq) 5,000 unit Q8HRS SQ Last administered on 12/21/17at 14:33; Start 12/20/17 at 14:00 Cefazolin Sodium 1 gm/Dextrose 50 ml @ 100 mls/hr DAILY IV ; Start 12/21/17 at 09:00; Status UNV Diphenhydramine HCl (Benadryl Oral Elixir) 12.5 mg PRN Q8HRS PRN PO ITCHING Last administered on 12/24/17at 08:09; Start 12/21/17 at 09:00 Cefazolin Sodium (Ancef) 1 gm Q24H IVP Last administered on 12/23/17at 10:29; Start 12/21/17 at 09:30 Sodium Chloride 1,000 ml @ 1,000 mls/hr Q1H PRN IV hypotension; Start 12/21/17 at 09:18; Stop 12/21/17 at 15:17; Status DC Sodium Chloride 1,000 ml @ 400 mls/hr Q2H30M PRN IV PATENCY; Start 12/21/17 at 09:18; Stop 12/21/17 at 23:47; Status DC Info (PHARMACY MONITORING -- do not chart) 1 each PRN DAILY PRN MC SEE COMMENTS ; Start 12/21/17 at 09:30; Status UNV Info (PHARMACY MONITORING -- do not chart) 1 each PRN DAILY PRN MC SEE COMMENTS ; Start 12/21/17 at 09:30; Status UNV Lidocaine HCl (Xylocaine-Mpf 2% Vial) 2 ml STK-MED ONCE .ROUTE ; Start 12/21/17 at 09:51; Stop 12/21/17 at 09:52; Status DC Carbamazepine (TEGretol) 200 mg BID PO Last administered on 12/24/17at 08:22; Start 12/21/17 at 14:00 Sodium Chloride 1,000 ml @ 1,000 mls/hr Q1H PRN IV hypotension; Start 12/22/17 at 10:18; Stop 12/22/17 at 16:17; Status DC Info (PHARMACY MONITORING -- do not chart) 1 each PRN DAILY PRN MC SEE COMMENTS ; Start 12/22/17 at 10:30; Status UNV Info (PHARMACY MONITORING -- do not chart) 1 each PRN DAILY PRN MC SEE COMMENTS ; Start 12/22/17 at 10:30; Status UNV Bacitracin 1 susanna PRN DAILY PRN TP TO WOUND; Start 12/23/17 at 10:00 Ondansetron HCl (Zofran Odt) 4 mg STK-MED ONCE .ROUTE ; Start 12/21/17 at 06:45 ; Stop 12/23/17 at 11:53; Status DC Sodium Chloride 1,000 ml @ 1,000 mls/hr Q1H PRN IV hypotension; Start 12/24/17 at 07:49; Stop 12/24/17 at 13:48 Acetaminophen (Tylenol) 500 mg 1X PRN PRN PO MILD PAIN / TEMP; Start 12/24/17 at 08:00; Stop 12/25/17 at 07:59 Diphenhydramine HCl (Benadryl) 25 mg 1X PRN PRN IV ITCHING; Start 12/24/17 at 08:00; Stop 12/25/17 at 07:59 Diphenhydramine HCl (Benadryl) 25 mg 1X PRN PRN IV ITCHING; Start 12/24/17 at 08:00; Stop 12/25/17 at 07:59 Sodium Chloride 1,000 ml @ 400 mls/hr Q2H30M PRN IV PATENCY; Start 12/24/17 at 07:49; Stop 12/24/17 at 19:48 Info (PHARMACY MONITORING -- do not chart) 1 each PRN DAILY PRN MC SEE COMMENTS ; Start 12/24/17 at 08:00; Status UNV Active Scripts Active Lidocaine 1 Each Adh..patch 1 Patch TD DAILY Percocet 10-325 Mg Tablet (Oxycodone/Acetaminophen) 1 Each Tablet 1 Tab PO Q4HRS Brilinta (Ticagrelor) 90 Mg Tablet 90 Mg PO BID 30 Days Morphine Sulfate Er (Morphine Sulfate) 15 Mg Tablet.er 15 Mg PO BID Reported Tegretol (Carbamazepine) 200 Mg Tablet 1 Tab PO BID Tramadol Hcl 50 Mg Tablet 50 Mg PO Q4HRS PRN [regranex] 1 Susanna TD DAILY Lantus Solostar (Insulin Glargine,Hum.rec.anlog) 100 Unit/1 Ml Insuln.pen 18 Unit SQ QHS Diflucan (Fluconazole) 100 Mg Tablet 100 Mg PO PRN Carvedilol 3.125 Mg Tablet 12.5 Mg PO BID Erythromycin (Erythromycin Base) 250 Mg Capsule.dr 250 Mg PO BID Cardizem Cd (Diltiazem Hcl) 180 Mg Cap.er.24h 120 Mg PO DAILY Amiodarone Hcl 200 Mg Tablet 1 Tab PO DAILY Ferric Citrate 210 Mg Tablet 210 Mg PO 3X/WEEK Nystatin 15 Gm Powder 1 Susanna TP PRN BID PRN Proventil Hfa Inhaler (Albuterol Sulfate) 6.7 Gm Hfa.aer.ad 2 Puff IH BID PRN Zofran (Ondansetron Hcl) 4 Mg Tablet 4 Mg PO Q6-8HRS PRN Nephro-Shabbir Tablet (Folic Acid/Vitamin B Comp W-C) 0.8 Mg Tablet 1 Tab PO DAILY Tricor (Fenofibrate Nanocrystallized) 145 Mg Tablet 1 Tab PO HS Lipitor (Atorvastatin Calcium) 80 Mg Tablet 80 Mg PO HS Niacin 500 Mg Tablet 500 Mg PO HS Novolog (Insulin Aspart) 100 Unit/1 Ml Cartridge 0 SQ TIDAC sliding scale Aspirin 325 Mg Tablet 325 Mg PO DAILY Furosemide 80 Mg Tablet 80 Mg PO BID Docusate Sodium 100 Mg Capsule 1 Cap PO PRN PRN Nitrostat (Nitroglycerin) 0.4 Mg Tab.subl 0.4 Mg SL PRN Q5MIN PRN Take as needed for chest pain Vitals/I & O Vital Sign - Last 24 Hours 12/23/17 12/23/17 12/23/17 12/23/17 10:30 10:30 10:32 11:00 Temp 97.9 97.9 Pulse 86 86 78 Resp 16 B/P (MAP) 160/70 160/70 171/67 (101) Pulse Ox 97 97 O2 Delivery Room Air Room Air 12/23/17 12/23/17 12/23/17 12/23/17 11:29 13:39 15:00 15:18 Temp 98.6 98.6 Pulse 78 Resp 16 B/P (MAP) 114/53 (73) Pulse Ox 98 98 97 98 O2 Delivery Room Air Room Air Room Air Room Air 12/23/17 12/23/17 12/23/17 12/23/17 17:10 17:13 19:00 19:25 Temp 98.2 98.2 Pulse 78 82 Resp 16 B/P (MAP) 114/53 114/53 (73) Pulse Ox 98 99 O2 Delivery Room Air Room Air Room Air 8/29/12/23/17 12/23/17 12/24/17 20:46 22:33 22:37 00:50 Temp 97.8 97.8 Pulse 75 Resp 16 B/P (MAP) 124/60 (81) Pulse Ox 96 94 97 97 O2 Delivery Room Air Room Air Room Air Room Air 12/24/17 12/24/17 12/24/17 12/24/17 03:32 03:48 04:24 07:00 Temp 98.0 98.3 98.0 98.3 Pulse 84 80 Resp 16 18 B/P (MAP) 138/70 (92) 130/62 (84) Pulse Ox 100 100 100 98 O2 Delivery Room Air Room Air Room Air Room Air 12/24/17 12/24/17 08:10 08:22 Pulse Ox 100 100 O2 Delivery Room Air Room Air Intake and Output 12/23/17 12/23/17 12/24/17 15:00 23:00 07:00 Intake Total 700 ml 650 ml Output Total 250 ml Balance 450 ml 650 ml TYREE RAMIREZ MD Dec 24, 2017 09:09
[2017-12-24] MEDS ORDERED: LIDOCAINE 2% PF 2ML VIAL. ONE (09:12)
[2017-12-24] MEDS ORDERED: LIDOCAINE 2% PF 2ML VIAL. ID ONE (09:15)
--- NOTE | 2017-12-24 11:19 | PDOC ---
Renal-Progress Notes Subjective Notes Notes FEELING BETTER History of Present Illness Hx of present illness STABLE Vitals Vitals Vital Signs Date Time Temp Pulse Resp B/P (MAP) Pulse Ox O2 Delivery O2 Flow Rate FiO2 12/24/17 08:22 100 Room Air 12/24/17 07:00 98.3 80 18 130/62 (84) 98.3 Weight Weight [ ] I.O. Intake and Output Intake and Output 12/24/17 07:00 Intake Total 1350 ml Output Total 250 ml Balance 1100 ml Intake Oral 1350 ml Output Urine Total 250 ml # Bowel Movements 1 Labs Labs Laboratory Tests Test 12/23/17 12:17 12/23/17 16:54 12/23/17 20:43 12/24/17 04:55 Glucose (Fingerstick) 147 mg/dL (70-99) 288 mg/dL (70-99) 251 mg/dL (70-99) White Blood Count 10.9 x10^3/uL (4.0-11.0) Red Blood Count 3.30 x10^6/uL (3.50-5.40) Hemoglobin 10.4 g/dL (12.0-15.5) Hematocrit 30.6 % (36.0-47.0) Mean Corpuscular Volume 93 fL (79-100) Mean Corpuscular Hemoglobin 31 pg (25-35) Mean Corpuscular Hemoglobin Concent 34 g/dL (31-37) Red Cell Distribution Width 13.8 % (11.5-14.5) Platelet Count 447 x10^3/uL (140-400) Neutrophils (%) (Auto) 79 % (31-73) Lymphocytes (%) (Auto) 8 % (24-48) Monocytes (%) (Auto) 8 % (0-9) Eosinophils (%) (Auto) 4 % (0-3) Basophils (%) (Auto) 1 % (0-3) Neutrophils # (Auto) 8.6 x10^3uL (1.8-7.7) Lymphocytes # (Auto) 0.8 x10^3/uL (1.0-4.8) Monocytes # (Auto) 0.9 x10^3/uL (0.0-1.1) Eosinophils # (Auto) 0.5 x10^3/uL (0.0-0.7) Basophils # (Auto) 0.1 x10^3/uL (0.0-0.2) Sodium Level 137 mmol/L (136-145) Potassium Level 4.1 mmol/L (3.5-5.1) Chloride Level 96 mmol/L (98-107) Carbon Dioxide Level 32 mmol/L (21-32) Anion Gap 9 (6-14) Blood Urea Nitrogen 39 mg/dL (7-20) Creatinine 4.8 mg/dL (0.6-1.0) Estimated GFR (Cockcroft-Gault) 9.5 Glucose Level 132 mg/dL (70-99) Calcium Level 7.5 mg/dL (8.5-10.1) Phosphorus Level 6.0 mg/dL (2.6-4.7) Magnesium Level 2.1 mg/dL (1.8-2.4) Creatine Kinase 83 U/L (26-192) Albumin 2.6 g/dL (3.4-5.0) Test 12/24/17 07:36 Glucose (Fingerstick) 127 mg/dL (70-99) Micro Micro Microbiology 12/19/17 Blood Culture - Preliminary, Resulted NO GROWTH AFTER 4 DAYS Review of Systems Constitutional: yes: no symptom reported Ears/Nose/Throat: Yes: no symptom reported Eyes: Yes: no symptom reported Pulmonary: Yes no symptom reported Cardiovascular: Yes no symptom reported Gastrointestional: Yes: no symptom reported Genitourinary: Yes: no symptom reported Musculoskeletal: Yes: no symptom reported Skin: Yes no symptom reported Psychiatric/Neurological: Yes: no symptom reported Endocrine: Yes: no symptom reported Physical Exam General Appearance: no apparent distress Respiratory: bilateral CTA Heart: S1S2 Abdomen: soft, bowel sounds present Genitourinary: bladder flat Extremities: pulses present Neurology: alert, oriented Assessment Assessment IMP ESRD ANEMIA DM II HTN R LE CELLULITIS PLAN HD TODAY UF TO DW ANTIBIOTICS WILL DO PD WHEN SHE GOES HOME CHARLY ZAVALA MD Dec 24, 2017 11:19
--- NOTE | 2017-12-24 14:16 | PDOC3 ---
Discharge Summary Date of Admission: Dec 19, 2017 Date of Discharge: Dec 24, 2017 Follow-Up: 3-5 days Admitting Diagnosis comment: discharge diagnosis Chief Complaint hypocalcemia on PD ESRD on PD rt leg cellulitis slow but improving h/o CAD WITH 8 stents. CABG h/o VRE, MRSA, ALlergic to zosyn, meropenum dm2 on insulin left leg BKA chronic back pain Patent right and left iliac arteries were visualized demonstrating abnormal monophasic Doppler blood flow. This indicates aortoiliac inflow disease. no vas surgery plans for intervention now plan: vascular surgery consult rec one additional day of iv antibiotics, completed today fu with renal, need HD today PD held home meds, slightly decrease insulin, ssi, refused novolog dc clinda, add zyvox, dc cipro. rt leg US ID consulted, add diflucan and cefazolin got 2g Calcium in icu wound care consult dvt ppx home on keflex 500mg po bid x 10 days pain management consult to see wound clinic next week d/c with home health dialysis today History of Present Illness History of Present Illness ROS: no fever, chills, sob or chest pain rt leg pain worse, US no abscess seems ok to take keflex and cefazolin before Ca better with HD and repletion Vitals Vitals Vital Signs Date Time Temp Pulse Resp B/P (MAP) Pulse Ox O2 Delivery O2 Flow Rate FiO2 12/24/17 08:22 100 Room Air 12/24/17 07:00 98.3 80 18 130/62 (84) 98.3 Physical Exam Physical Exam rt leg is less red and swollen with a small open wound , medial aspect. General: Alert, Oriented X3, Cooperative, No acute distress Heart: Regular rate, Normal S1, Normal S2 Lungs: Clear Abdomen: Normal bowel sounds, Soft Extremities: No clubbing, No cyanosis, Normal pulses Skin: No breakdown Labs FINAL DIAGNOSIS Problems Medical Problems: (1) End-stage renal disease on hemodialysis Status: Acute (2) Hypocalcemia Status: Acute Brief Hospital Course Ms. Rosenbaum is a 52 old [sex] who presented with [ right leg cellulitis ] CONDITION AT DISCHARGE: Improved Discharge Medications Current Medications Oxycodone/ Acetaminophen (Percocet 5/325) 1 tab 1X ONCE PO Last administered on 12/19/17at 20:51; Start 12/19/17 at 20:45; Stop 12/19/17 at 20:46; Status DC Calcium Gluconate (Calcium Gluconate) 1,000 mg 1X ONCE IVP Last administered on 12/19/17at 22:07; Start 12/19/17 at 21:30; Stop 12/19/17 at 21:31; Status DC Ondansetron HCl (Zofran) 4 mg PRN Q8HRS PRN IV NAUSEA/VOMITING; Start 12/19/17 at 21:45; Stop 12/20/17 at 21:44; Status DC Fentanyl Citrate (Fentanyl 2ml Vial) 50 mcg PRN Q2HR PRN IV PAIN; Start at 21:45; Stop 12/20/17 at 10:00; Status DC Morphine Sulfate (Morphine Sulfate) 2 mg PRN Q2HR PRN IV PAIN Last administered on 12/24/17at 08:10; Start 12/20/17 at 00:30 Amiodarone HCl (Cordarone) 200 mg DAILY PO Last administered on 12/23/17at 10:30 ; Start 12/20/17 at 09:00 Carvedilol (Coreg) 12.5 mg BIDWMEALS PO Last administered on 12/23/17at 17:10; Start 12/20/17 at 08:00 Vitamin B Complex/ Vitamin C (Melly-Shabbir) 1 tab DAILY PO Last administered on at 10:29; Start 12/20/17 at 09:00 Furosemide (Lasix) 80 mg [id number] PO Last administered on 12/24/17at 08:22; Start 12/20/17 at 09:00 Insulin Glargine (Lantus) 18 units QHS SQ ; Start 12/20/17 at 21:00; Stop at 21:00; Status DC Morphine Sulfate (Ms Contin) 15 mg BID PO Last administered on 12/24/17at 08:22 ; Start 12/20/17 at 09:00 Nitroglycerin (Nitrostat) 0.4 mg PRN Q5MIN PRN SL CHEST PAIN; Start 12/20/17 at 00:30 Nystatin (Nystop) 1 susanna PRN BID PRN TP SKIN BREAKDOWN; Start 12/20/17 at 00:30 Oxycodone/ Acetaminophen (Percocet 10/325) 1 tab Q4HRS PO ; Start 12/20/17 at 04 :00; Status Cancel Ticagrelor (Brilinta) 90 mg BID PO Last administered on 12/24/17at 08:22; Start 12/20/17 at 09:00 Tramadol HCl (Ultram) 50 mg PRN Q4HRS PRN PO HEADACHE, MILD PAIN; Start at 00:30 Non-Formulary Medication (Albuterol Sulfate (Proventil Hfa Inhaler)) 2 puff BID PRN IH FOR ASTHMA; Start 12/20/17 at 00:30; Status UNV Atorvastatin Calcium (Lipitor) 80 mg HS PO Last administered on 12/23/17at 20:46 ; Start 12/20/17 at 21:00 Diltiazem HCl (Cardizem 24hr Cd) 120 mg DAILY PO Last administered on at 10:30; Start 12/20/17 at 09:00 Erythromycin (E-Mycin) 250 mg BID PO Last administered on 12/24/17at 08:22; Start 12/20/17 at 09:00 Fenofibrate (Lofibra) 134 mg HS PO Last administered on 12/23/17at 20:45; Start 12/20/17 at 21:00 Non-Formulary Medication (Ferric Citrate ) 210 mg 3X/WEEK PO ; Start 12/21/17 at 09:00; Stop 12/22/17 at 07:20; Status DC Fluconazole (Diflucan) 100 mg PRN DAILY PRN PO YEAST INFECTION; Start 12/20/17 at 00:30; Stop 12/20/17 at 11:34; Status DC Lidocaine (Lidoderm) 1 patch DAILY TD Last administered on 12/21/17at 08:42; Start 12/20/17 at 09:00 Niacin (Slo-Niacin) 500 mg QEVNG PO Last administered on 12/23/17at 17:09; Start 12/20/17 at 18:00 Ondansetron HCl (Zofran Odt) 4 mg PRN Q6HRS PRN PO NAUSEA/VOMITING Last administered on 12/21/17at 06:34; Start 12/20/17 at 00:30 Non-Formulary Medication ([regranex] ) 1 susanna DAILY TD ; Start 12/20/17 at 09:00 ; Stop 12/22/17 at 07:20; Status DC Ciprofloxacin (Cipro) 500 mg [id number] PO Last administered on 12/20/17at 06:21; Start 12/20/17 at 07:00; Stop 12/20/17 at 10:32; Status DC Clindamycin HCl (Cleocin) 150 mg TID PO Last administered on 12/20/17at 08:42; Start 12/20/17 at 09:00; Stop 12/20/17 at 09:08; Status DC Oxycodone/ Acetaminophen (Percocet 10/325) 1 tab PRN Q4HRS PRN PO MODERATE- SEVERE PAIN Last administered on 12/23/17at 13:39; Start 12/20/17 at 02:00 Albuterol Sulfate (Ventolin Neb Soln) 2.5 mg PRN BID PRN NEB SHORTNESS OF BREATH; Start 12/20/17 at 02:45 Calcium Gluconate (Calcium Gluconate) 1,000 mg 1X ONCE IVP ; Start 12/20/17 at 06:00; Stop 12/20/17 at 06:01; Status UNV Calcium Gluconate 1000 mg/Dextrose 110 ml @ 220 mls/hr 1X ONCE IV Last administered on 12/20/17at 06:21; Start 12/20/17 at 06:15; Stop 12/20/17 at 06:44 ; Status DC Insulin Human Lispro (HumaLOG) 0-9 UNITS TIDWMEALS SQ Last administered on 12/23at 17:20; Start 12/20/17 at 12:00 Dextrose (Dextrose 50%-Water Syringe) 12.5 gm PRN Q15MIN PRN IV SEE COMMENTS Last administered on 12/23/17at 08:29; Start 12/20/17 at 08:45 Insulin Human Lispro (HumaLOG) 10 units TIDAC SQ Last administered on at 08:46; Start 12/20/17 at 11:30 Linezolid (Zyvox) 600 mg BID PO Last administered on 12/23/17at 08:25; Start at 11:00; Stop 12/23/17 at 15:29; Status DC Nystatin (Nystatin Oral Susp) 5 ml [id number] ; Start 12/20/17 at 13:00; Stop 12/21/17 at 14:11; Status DC Darbepoetin Mauricio (Aranesp) 60 mcg [id number] SQ Last administered on 12/20/17at 23 :22; Start 12/20/17 at 21:00 Magnesium Sulfate 50 ml @ 25 mls/hr PRN DAILY PRN IV for Mag < 1.7 on am labs; Start 12/20/17 at 09:30 Ciprofloxacin (Cipro) 500 mg Q24H PO Last administered on 12/21/17at 06:36; Start 12/21/17 at 07:00; Stop 12/21/17 at 08:54; Status DC Lactobacillus Rhamnosus (Culturelle) 1 cap BID PO Last administered on at 08:21; Start 12/20/17 at 12:00 Insulin Glargine (Lantus) 15 units QHS SQ Last administered on 12/23/17at 20:50 ; Start 12/20/17 at 21:00 Sodium Chloride 1,000 ml @ 1,000 mls/hr Q1H PRN IV hypotension; Start 12/20/17 at 12:07; Stop 12/20/17 at 18:06; Status DC Albumin Human 200 ml @ 200 mls/hr 1X PRN PRN IV Hypotension; Start 12/20/17 at 12:15; Stop 12/20/17 at 18:14; Status DC Acetaminophen (Tylenol) 500 mg 1X PRN PRN PO MILD PAIN / TEMP; Start 12/20/17 at 12:15; Stop 12/21/17 at 07:34; Status DC Diphenhydramine HCl (Benadryl) 25 mg 1X PRN PRN IV ITCHING; Start 12/20/17 at 12:15; Stop 12/21/17 at 12:14; Status Cancel Diphenhydramine HCl (Benadryl) 25 mg 1X PRN PRN IV ITCHING; Start 12/20/17 at 12:15; Stop 12/21/17 at 07:33; Status DC Labetalol HCl (Normodyne Iv Push) 10 mg PRN Q1HR PRN IVP SBP > 180; Start 12/20 at 12:15; Stop 12/21/17 at 12:14; Status DC Clonidine HCl (Catapres) 0.1 mg 1X PRN PRN PO SBP > 180; Start 12/20/17 at 12: 15; Stop 12/21/17 at 12:14; Status DC Sodium Chloride 1,000 ml @ 400 mls/hr Q2H30M PRN IV PATENCY; Start 12/20/17 at 12:07; Stop 12/21/17 at 00:06; Status DC Info (PHARMACY MONITORING -- do not chart) 1 each PRN DAILY PRN MC SEE COMMENTS ; Start 12/20/17 at 12:15 Info (PHARMACY MONITORING -- do not chart) 1 each PRN DAILY PRN MC SEE COMMENTS ; Start 12/20/17 at 12:15; Status UNV Acetaminophen (Tylenol) 650 mg PRN Q6HRS PRN PO FEVER; Start 12/20/17 at 12:45 Ondansetron HCl (Zofran) 4 mg PRN Q6HRS PRN IV NAUSEA/VOMITING Last administered on 12/23/17at 02:16; Start 12/20/17 at 12:45 Morphine Sulfate (Morphine Sulfate) 2 mg PRN Q2HR PRN IV MODERATE TO SEVERE PAIN; Start 12/20/17 at 12:45; Stop 12/22/17 at 12:20; Status DC Tramadol HCl (Ultram) 50 mg PRN Q6HRS PRN PO MILD TO MODERATE PAIN; Start 12/20 at 12:45; Stop 12/21/17 at 07:34; Status DC Docusate Sodium (Colace) 100 mg PRN DAILY PRN PO CONSTIPATION Last administered on 12/22/17at 21:08; Start 12/20/17 at 12:45 Heparin Sodium (Porcine) (Heparin Sq) 5,000 unit Q8HRS SQ Last administered on 12/21/17at 14:33; Start 12/20/17 at 14:00 Cefazolin Sodium 1 gm/Dextrose 50 ml @ 100 mls/hr DAILY IV ; Start 12/21/17 at 09:00; Status UNV Diphenhydramine HCl (Benadryl Oral Elixir) 12.5 mg PRN Q8HRS PRN PO ITCHING Last administered on 12/24/17at 08:09; Start 12/21/17 at 09:00 Cefazolin Sodium (Ancef) 1 gm Q24H IVP Last administered on 8/29/18at 10:29; Start 12/21/17 at 09:30 Sodium Chloride 1,000 ml @ 1,000 mls/hr Q1H PRN IV hypotension; Start 12/21/17 at 09:18; Stop 12/21/17 at 15:17; Status DC Sodium Chloride 1,000 ml @ 400 mls/hr Q2H30M PRN IV PATENCY; Start 12/21/17 at 09:18; Stop 12/21/17 at 23:47; Status DC Info (PHARMACY MONITORING -- do not chart) 1 each PRN DAILY PRN MC SEE COMMENTS ; Start 12/21/17 at 09:30; Status UNV Info (PHARMACY MONITORING -- do not chart) 1 each PRN DAILY PRN MC SEE COMMENTS ; Start 12/21/17 at 09:30; Status UNV Lidocaine HCl (Xylocaine-Mpf 2% Vial) 2 ml STK-MED ONCE .ROUTE ; Start 12/21/17 at 09:51; Stop 12/21/17 at 09:52; Status DC Carbamazepine (TEGretol) 200 mg BID PO Last administered on 12/24/17at 08:22; Start 12/21/17 at 14:00 Sodium Chloride 1,000 ml @ 1,000 mls/hr Q1H PRN IV hypotension; Start 12/22/17 at 10:18; Stop 12/22/17 at 16:17; Status DC Info (PHARMACY MONITORING -- do not chart) 1 each PRN DAILY PRN MC SEE COMMENTS ; Start 12/22/17 at 10:30; Status UNV Info (PHARMACY MONITORING -- do not chart) 1 each PRN DAILY PRN MC SEE COMMENTS ; Start 12/22/17 at 10:30; Status UNV Bacitracin 1 susanna PRN DAILY PRN TP TO WOUND; Start 12/23/17 at 10:00 Ondansetron HCl (Zofran Odt) 4 mg STK-MED ONCE .ROUTE ; Start 12/21/17 at 06:45 ; Stop 12/23/17 at 11:53; Status DC Sodium Chloride 1,000 ml @ 1,000 mls/hr Q1H PRN IV hypotension; Start 12/24/17 at 07:49; Stop 12/24/17 at 13:48; Status DC Acetaminophen (Tylenol) 500 mg 1X PRN PRN PO MILD PAIN / TEMP; Start 12/24/17 at 08:00; Stop 12/25/17 at 07:59 Diphenhydramine HCl (Benadryl) 25 mg 1X PRN PRN IV ITCHING; Start 12/24/17 at 08:00; Stop 12/25/17 at 07:59 Diphenhydramine HCl (Benadryl) 25 mg 1X PRN PRN IV ITCHING; Start 12/24/17 at 08:00; Stop 12/25/17 at 07:59 Sodium Chloride 1,000 ml @ 400 mls/hr Q2H30M PRN IV PATENCY; Start 12/24/17 at 07:49; Stop 12/24/17 at 19:48 Info (PHARMACY MONITORING -- do not chart) 1 each PRN DAILY PRN MC SEE COMMENTS ; Start 12/24/17 at 08:00; Status UNV Lidocaine HCl (Xylocaine-Mpf 2% Vial) 2 ml STK-MED ONCE .ROUTE ; Start 12/24/17 at 09:12; Stop 12/24/17 at 09:13; Status DC Lidocaine HCl (Xylocaine-Mpf 2% Vial) 0.5 ml 1X ONCE ID ; Start 12/24/17 at 09: 15; Stop 12/24/17 at 09:16; Status DC Active Scripts Active Lidocaine 1 Each Adh..patch 1 Patch TD DAILY Percocet 10-325 Mg Tablet (Oxycodone/Acetaminophen) 1 Each Tablet 1 Tab PO Q4HRS Brilinta (Ticagrelor) 90 Mg Tablet 90 Mg PO BID 30 Days Morphine Sulfate Er (Morphine Sulfate) 15 Mg Tablet.er 15 Mg PO BID Reported Tegretol (Carbamazepine) 200 Mg Tablet 1 Tab PO BID Tramadol Hcl 50 Mg Tablet 50 Mg PO Q4HRS PRN [regranex] 1 Susanna TD DAILY Lantus Solostar (Insulin Glargine,Hum.rec.anlog) 100 Unit/1 Ml Insuln.pen 18 Unit SQ QHS Diflucan (Fluconazole) 100 Mg Tablet 100 Mg PO PRN Carvedilol 3.125 Mg Tablet 12.5 Mg PO BID Erythromycin (Erythromycin Base) 250 Mg Capsule.dr 250 Mg PO BID Cardizem Cd (Diltiazem Hcl) 180 Mg Cap.er.24h 120 Mg PO DAILY Amiodarone Hcl 200 Mg Tablet 1 Tab PO DAILY Ferric Citrate 210 Mg Tablet 210 Mg PO 3X/WEEK Nystatin 15 Gm Powder 1 Susanna TP PRN BID PRN Proventil Hfa Inhaler (Albuterol Sulfate) 6.7 Gm Hfa.aer.ad 2 Puff IH BID PRN Zofran (Ondansetron Hcl) 4 Mg Tablet 4 Mg PO Q6-8HRS PRN Nephro-Shabbir Tablet (Folic Acid/Vitamin B Comp W-C) 0.8 Mg Tablet 1 Tab PO DAILY Tricor (Fenofibrate Nanocrystallized) 145 Mg Tablet 1 Tab PO HS Lipitor (Atorvastatin Calcium) 80 Mg Tablet 80 Mg PO HS Niacin 500 Mg Tablet 500 Mg PO HS Novolog (Insulin Aspart) 100 Unit/1 Ml Cartridge 0 SQ TIDAC sliding scale Aspirin 325 Mg Tablet 325 Mg PO DAILY Furosemide 80 Mg Tablet 80 Mg PO BID Docusate Sodium 100 Mg Capsule 1 Cap PO PRN PRN Nitrostat (Nitroglycerin) 0.4 Mg Tab.subl 0.4 Mg SL PRN Q5MIN PRN Take as needed for chest pain Vital Signs Vital Signs Date Time Temp Pulse Resp B/P (MAP) Pulse Ox O2 Delivery O2 Flow Rate FiO2 12/24/17 08:22 100 Room Air 12/24/17 07:00 98.3 80 18 130/62 (84) 98.3 Labs Laboratory Tests Test 12/22/17 17:21 12/22/17 21:16 12/23/17 07:00 12/23/17 07:53 Glucose (Fingerstick) 160 mg/dL (70-99) 203 mg/dL (70-99) 68 mg/dL (70-99) Sodium Level 140 mmol/L (136-145) Potassium Level 4.5 mmol/L (3.5-5.1) Chloride Level 99 mmol/L (98-107) Carbon Dioxide Level 33 mmol/L (21-32) Anion Gap 8 (6-14) Blood Urea Nitrogen 24 mg/dL (7-20) Creatinine 3.5 mg/dL (0.6-1.0) Estimated GFR (Cockcroft-Gault) 13.7 Glucose Level 81 mg/dL (70-99) Calcium Level 7.6 mg/dL (8.5-10.1) Phosphorus Level 5.5 mg/dL (2.6-4.7) Magnesium Level 2.1 mg/dL (1.8-2.4) Creatine Kinase 68 U/L (26-192) Albumin 2.4 g/dL (3.4-5.0) Test 12/23/17 10:29 12/23/17 12:17 12/23/17 16:54 12/23/17 20:43 Glucose (Fingerstick) 141 mg/dL (70-99) 147 mg/dL (70-99) 288 mg/dL (70-99) 251 mg/dL (70-99) Test 12/24/17 04:55 12/24/17 07:36 White Blood Count 10.9 x10^3/uL (4.0-11.0) Red Blood Count 3.30 x10^6/uL (3.50-5.40) Hemoglobin 10.4 g/dL (12.0-15.5) Hematocrit 30.6 % (36.0-47.0) Mean Corpuscular Volume 93 fL (79-100) Mean Corpuscular Hemoglobin 31 pg (25-35) Mean Corpuscular Hemoglobin Concent 34 g/dL (31-37) Red Cell Distribution Width 13.8 % (11.5-14.5) Platelet Count 447 x10^3/uL (140-400) Neutrophils (%) (Auto) 79 % (31-73) Lymphocytes (%) (Auto) 8 % (24-48) Monocytes (%) (Auto) 8 % (0-9) Eosinophils (%) (Auto) 4 % (0-3) Basophils (%) (Auto) 1 % (0-3) Neutrophils # (Auto) 8.6 x10^3uL (1.8-7.7) Lymphocytes # (Auto) 0.8 x10^3/uL (1.0-4.8) Monocytes # (Auto) 0.9 x10^3/uL (0.0-1.1) Eosinophils # (Auto) 0.5 x10^3/uL (0.0-0.7) Basophils # (Auto) 0.1 x10^3/uL (0.0-0.2) Sodium Level 137 mmol/L (136-145) Potassium Level 4.1 mmol/L (3.5-5.1) Chloride Level 96 mmol/L (98-107) Carbon Dioxide Level 32 mmol/L (21-32) Anion Gap 9 (6-14) Blood Urea Nitrogen 39 mg/dL (7-20) Creatinine 4.8 mg/dL (0.6-1.0) Estimated GFR (Cockcroft-Gault) 9.5 Glucose Level 132 mg/dL (70-99) Calcium Level 7.5 mg/dL (8.5-10.1) Phosphorus Level 6.0 mg/dL (2.6-4.7) Magnesium Level 2.1 mg/dL (1.8-2.4) Creatine Kinase 83 U/L (26-192) Albumin 2.6 g/dL (3.4-5.0) Glucose (Fingerstick) 127 mg/dL (70-99) Laboratory Tests Test 12/23/17 16:54 12/23/17 20:43 12/24/17 04:55 12/24/17 07:36 Glucose (Fingerstick) 288 mg/dL (70-99) 251 mg/dL (70-99) 127 mg/dL (70-99) White Blood Count 10.9 x10^3/uL (4.0-11.0) Red Blood Count 3.30 x10^6/uL (3.50-5.40) Hemoglobin 10.4 g/dL (12.0-15.5) Hematocrit 30.6 % (36.0-47.0) Mean Corpuscular Volume 93 fL (79-100) Mean Corpuscular Hemoglobin 31 pg (25-35) Mean Corpuscular Hemoglobin Concent 34 g/dL (31-37) Red Cell Distribution Width 13.8 % (11.5-14.5) Platelet Count 447 x10^3/uL (140-400) Neutrophils (%) (Auto) 79 % (31-73) Lymphocytes (%) (Auto) 8 % (24-48) Monocytes (%) (Auto) 8 % (0-9) Eosinophils (%) (Auto) 4 % (0-3) Basophils (%) (Auto) 1 % (0-3) Neutrophils # (Auto) 8.6 x10^3uL (1.8-7.7) Lymphocytes # (Auto) 0.8 x10^3/uL (1.0-4.8) Monocytes # (Auto) 0.9 x10^3/uL (0.0-1.1) Eosinophils # (Auto) 0.5 x10^3/uL (0.0-0.7) Basophils # (Auto) 0.1 x10^3/uL (0.0-0.2) Sodium Level 137 mmol/L (136-145) Potassium Level 4.1 mmol/L (3.5-5.1) Chloride Level 96 mmol/L (98-107) Carbon Dioxide Level 32 mmol/L (21-32) Anion Gap 9 (6-14) Blood Urea Nitrogen 39 mg/dL (7-20) Creatinine 4.8 mg/dL (0.6-1.0) Estimated GFR (Cockcroft-Gault) 9.5 Glucose Level 132 mg/dL (70-99) Calcium Level 7.5 mg/dL (8.5-10.1) Phosphorus Level 6.0 mg/dL (2.6-4.7) Magnesium Level 2.1 mg/dL (1.8-2.4) Creatine Kinase 83 U/L (26-192) Albumin 2.6 g/dL (3.4-5.0) Allergies Allergies Coded Allergies Type Severity Reaction Last Updated Verified Sulfa (Sulfonamide Antibiotics) Allergy Severe Anaphylaxis 10/19/17 Yes meropenem Allergy Intermediate Rash 10/19/17 Yes piperacillin Allergy Intermediate Rash 10/19/17 Yes strawberry Allergy Intermediate 10/19/17 Yes tazobactam Allergy Intermediate 10/19/17 Yes cefazolin Adverse Reaction Intermediate Itching 10/19/17 Yes fentanyl Adverse Reaction Intermediate Nausea and Vomiting 10/19/17 Yes Disposition/Orders: D/C to Home w/ HH TYREE RAMIREZ MD Dec 24, 2017 14:16
--- NOTE | 2017-12-24 14:18 | DISCH ---
DISCHARGE WITH HOME HEALTH DISCHARGE INFORMATION: Final Diagnosis: Problems Medical Problems: (1) End-stage renal disease on hemodialysis Status: Acute (2) Hypocalcemia Status: Acute Condition on Discharge: Stable CODE STATUS: Code Status: Full HOME HEALTH: Face to Face: I certify this patient is under my care and that I, or a nurse practitioner or physician's nurse practitioner physician assistant working with me, had a face to face encounter that meets the physician face to face encounter requirements with this patient on []. Medical Complications: CHF, Other (esrd) Physical Therapy For: Evalulation/Treatment Occupational Therapy For: Evaluation/Treatment Pt Meets Homebound Status: Poor coordination w/ amb., Unsteady balance w/ amb, POST DISCHARGE ORDERS: Activity Instructions for Disc: Activity as tolerated Weight Bearing Status after Di: As tolerated DIET AFTER DISCHARGE: Renal Wound/Incision Care: Change dressing CHECKS AFTER DISCHARGE: Checks after discharge: Check blood sugar, ac/hs TREATMENT/EQUIPMENT ORDERS: Adaptive Equipment Issued: None, Raised toilet seat CERTIFICATION STATEMENT: Certification Statement: Certification Statement: Based on the above finding, I certify that this patient is confined to the home and needs intermittent prison care, physical therapy and/or speech therapy, or continues to need occupational therapy.~ This patient is under my care, and I have initiated the establishment of the plan of care.~ This patient will be followed by myself or a community physician who will periodically review the plan of care. Home Meds Active Scripts Lidocaine (Lidocaine) 1 Each Adh..patch, 1 PATCH TD DAILY, #5 PATCH Prov:ROMI GOSS MD 12/05/17 Oxycodone/Apap 10-325 (PERCOCET 10-325 MG TABLET) 1 Each Tablet, 1 TAB PO Q4HRS for PAIN, #40 TAB 0 Refills Prov:ROMI GOSS MD 12/05/17 Ticagrelor (BRILINTA) 90 Mg Tablet, 90 MG PO BID for 30 Days, #60 TAB Prov:DAVID PINTO MD 02/08/17 Morphine Sulfate (MORPHINE SULFATE ER) 15 Mg Tablet.er, 15 MG PO BID, #60 Prov:ROMI GOSS MD 01/09/16 Reported Medications Carbamazepine (TEGRETOL) 200 Mg Tablet, 1 TAB PO BID, #60 TAB 1 Refill 12/21/17 Tramadol Hcl (TRAMADOL HCL) 50 Mg Tablet, 50 MG PO Q4HRS PRN for HEADACHE, TAB 12/20/17 [regranex] No Conflict Check, 1 IRMA TD DAILY for Wound to right foot. 12/04/17 Insulin Glargine,Hum.rec.anlog (LANTUS SOLOSTAR) 100 Unit/1 Ml Insuln.pen, 18 UNIT SQ QHS, #15 ML 3 Refills 12/02/17 Fluconazole (DIFLUCAN) 100 Mg Tablet, 100 MG PO PRN, TAB 10/14/17 Carvedilol (CARVEDILOL) 3.125 Mg Tablet, 12.5 MG PO BID, #60 TAB 3 Refills 06/27/17 Erythromycin Base (ERYTHROMYCIN) 250 Mg Capsule.dr, 250 MG PO BID, CAP 06/24/17 Diltiazem Hcl (CARDIZEM CD) 180 Mg Cap.er.24h, 120 MG PO DAILY for FOR HYPERTENSION, #30 CAP 0 Refills 06/08/17 Amiodarone Hcl (AMIODARONE HCL) 200 Mg Tablet, 1 TAB PO DAILY, #90 TAB 1 Refill 06/08/17 Ferric Citrate (Ferric Citrate) 210 Mg Tablet, 210 MG PO 3X/WEEK, TAB 06/06/17 Nystatin (NYSTATIN) 15 Gm Powder, 1 IRMA TP PRN BID PRN for SKIN BREAKDOWN, #1 BOTTLE 02/05/17 Albuterol Sulfate (PROVENTIL HFA INHALER) 6.7 Gm Hfa.aer.ad, 2 PUFF IH BID PRN for FOR ASTHMA, INHALER 0 Refills 02/04/17 Ondansetron Hcl (ZOFRAN) 4 Mg Tablet, 4 MG PO Q6-8HRS PRN for NAUSEA/VOMITING, TAB 10/08/16 Folic Acid/Vitamin B Comp W-C (NEPHRO-RICARDO TABLET) 0.8 Mg Tablet, 1 TAB PO DAILY , #30 TAB 5 Refills 08/15/16 Fenofibrate Nanocrystallized (TRICOR) 145 Mg Tablet, 1 TAB PO HS, #30 TAB 5 Refills 12/06/14 Atorvastatin Calcium (LIPITOR) 80 Mg Tablet, 80 MG PO HS for FOR CHOLESTEROL, # 30 TAB 0 Refills 12/06/14 Niacin (NIACIN) 500 Mg Tablet, 500 MG PO HS, TAB 12/06/14 Insulin Aspart (NOVOLOG) 100 Unit/1 Ml Cartridge, 0 SQ TIDAC, EACH sliding scale 12/06/14 Aspirin (ASPIRIN) 325 Mg Tablet, 325 MG PO DAILY 12/05/14 Furosemide (FUROSEMIDE) 80 Mg Tablet, 80 MG PO BID, TAB 12/05/14 Docusate Sodium (DOCUSATE SODIUM) 100 Mg Capsule, 1 CAP PO PRN PRN for CONSTIPATION, #30 CAP 12/05/14 Nitroglycerin (NITROSTAT) 0.4 Mg Tab.subl, 0.4 MG SL PRN Q5MIN PRN for CHEST PAIN, BOTTLE Take as needed for chest pain 12/05/14 Discontinued Reported Medications Cinacalcet Hcl (SENSIPAR) 30 Mg Tablet, 1 TAB PO DAILY, #30 TAB 11 Refills 12/02/17 TYREE RAMIREZ MD Dec 24, 2017 14:18
== END 2017-12-24 15:20 | disposition home health service (06) | DRG 871 ==
LOC: ER 19:14 → 1 WEST ICU 21:27 → 2 NORTH 12-20 19:19
PROVIDERS: ADMIT Internal Medicine; ATTEND Internal Medicine
PROC: 5A1D70Z Performance of Urinary Filtration, Intermittent, Less than 6 Hours Per Day (ICD-10-PCS; principal; 2017-12-20)
PROC: 5A1D70Z Performance of Urinary Filtration, Intermittent, Less than 6 Hours Per Day (ICD-10-PCS; 2017-12-21)
PROC: 5A1D70Z Performance of Urinary Filtration, Intermittent, Less than 6 Hours Per Day (ICD-10-PCS; 2017-12-22)
PROC: 5A1D70Z Performance of Urinary Filtration, Intermittent, Less than 6 Hours Per Day (ICD-10-PCS; 2017-12-24)
DX: A41.9 Sepsis, unspecified organism (principal); N18.6 End stage renal disease; L03.115 Cellulitis of right lower limb; N39.0 Urinary tract infection, site not specified; I12.0 Hypertensive chronic kidney disease with stage 5 chronic kidney disease or end stage renal disease; M86.9 Osteomyelitis, unspecified; E83.51 Hypocalcemia; E11.69 Type 2 diabetes mellitus with other specified complication; I35.0 Nonrheumatic aortic (valve) stenosis; I25.10 Atherosclerotic heart disease of native coronary artery without angina pectoris; E78.5 Hyperlipidemia, unspecified; J44.9 Chronic obstructive pulmonary disease, unspecified; K21.9 Gastro-esophageal reflux disease without esophagitis; M79.7 Fibromyalgia; G89.29 Other chronic pain; M54.9 Dorsalgia, unspecified; E11.22 Type 2 diabetes mellitus with diabetic chronic kidney disease; E11.51 Type 2 diabetes mellitus with diabetic peripheral angiopathy without gangrene; D64.9 Anemia, unspecified; E11.43 Type 2 diabetes mellitus with diabetic autonomic (poly)neuropathy; I70.0 Atherosclerosis of aorta; K31.84 Gastroparesis; I25.2 Old myocardial infarction; Z89.512 Acquired absence of left leg below knee; Z88.6 Allergy status to analgesic agent; Z88.1 Allergy status to other antibiotic agents; Z88.2 Allergy status to sulfonamides; Z95.1 Presence of aortocoronary bypass graft; Z90.710 Acquired absence of both cervix and uterus; Z83.3 Family history of diabetes mellitus; Z82.49 Family history of ischemic heart disease and other diseases of the circulatory system; Z99.2 Dependence on renal dialysis; Z79.4 Long term (current) use of insulin; Z86.19 Personal history of other infectious and parasitic diseases; Z87.11 Personal history of peptic ulcer disease
CPT/HCPCS: 36415; 76881; 80048; 80053; 80069; 82040; 82550; 82962; 83605; 83735; 83970; 84100; 85007; 85025; 87040; 87641; 93005; 93926; 93978; 94760; 96374; 99406; J0610; J0690; J0881; J1815; J2270; J2405; J7042; Q0162; 99285-25

== ENCOUNTER → 2017-12-25 | Outpatient (CLI) | payer MEDICARE ==
[2017-12-24 07:00] VITALS: BP 130/62
[~2017-12-25] MED LIST changes: +CARB200T PO
== END | disposition home or self-care (01) ==
LOC: PMGWOUND 10:45
PROVIDERS: ATTEND Preventive Medicine Undersea and Hyperbaric Medicine
DX: E11.621 Type 2 diabetes mellitus with foot ulcer (principal); L97.512 Non-pressure chronic ulcer of other part of right foot with fat layer exposed; L97.411 Non-pressure chronic ulcer of right heel and midfoot limited to breakdown of skin; S80.811D Abrasion, right lower leg, subsequent encounter; I13.2 Hypertensive heart and chronic kidney disease with heart failure and with stage 5 chronic kidney disease, or end stage renal disease; E11.22 Type 2 diabetes mellitus with diabetic chronic kidney disease; N18.6 End stage renal disease; I50.33 Acute on chronic diastolic (congestive) heart failure; E11.52 Type 2 diabetes mellitus with diabetic peripheral angiopathy with gangrene; E11.43 Type 2 diabetes mellitus with diabetic autonomic (poly)neuropathy; K31.84 Gastroparesis; L84 Corns and callosities; F32.9 Major depressive disorder, single episode, unspecified; F41.9 Anxiety disorder, unspecified; F17.210 Nicotine dependence, cigarettes, uncomplicated; K21.9 Gastro-esophageal reflux disease without esophagitis; E78.4 Other hyperlipidemia; I48.0 Paroxysmal atrial fibrillation; M86.8X7 Other osteomyelitis, ankle and foot; M19.90 Unspecified osteoarthritis, unspecified site; J43.9 Emphysema, unspecified; I25.2 Old myocardial infarction; G89.29 Other chronic pain; M54.9 Dorsalgia, unspecified; I25.10 Atherosclerotic heart disease of native coronary artery without angina pectoris; E21.3 Hyperparathyroidism, unspecified; E78.00 Pure hypercholesterolemia, unspecified; E66.09 Other obesity due to excess calories; Z68.25 Body mass index [BMI] 25.0-25.9, adult; Z79.4 Long term (current) use of insulin; Z99.2 Dependence on renal dialysis; Z90.710 Acquired absence of both cervix and uterus; Z79.01 Long term (current) use of anticoagulants; Z79.84 Long term (current) use of oral hypoglycemic drugs; Z79.82 Long term (current) use of aspirin; Z79.899 Other long term (current) drug therapy; Z88.6 Allergy status to analgesic agent; Z88.1 Allergy status to other antibiotic agents; Z88.0 Allergy status to penicillin; Z88.2 Allergy status to sulfonamides; Z88.8 Allergy status to other drugs, medicaments and biological substances; Z86.718 Personal history of other venous thrombosis and embolism; Z89.512 Acquired absence of left leg below knee; Z89.522 Acquired absence of left knee; Z89.521 Acquired absence of right knee; Z95.1 Presence of aortocoronary bypass graft; X58.XXXD Exposure to other specified factors, subsequent encounter
CPT/HCPCS: 97597

== ENCOUNTER 2018-01-26 21:18 | Inpatient (IN) | payer MEDICARE ==
[~2018-01-26] VITALS: Ht 172.7 cm; Wt 73.5 kg
[~2018-01-26 21:18] MED LIST changes: +CALC0.25 PO; +IRON150C11 PO
[2018-01-26] MEDS ORDERED: HYDROmorphone 2 MG/ML VIAL IV ONE (22:00)
[2018-01-26 22:05] LABS: BASO % 0 % (0-3); EOS # 0.1 x10^3/uL (0.0-0.7); EOS % 1 % (0-3); HEMATOCRIT 27.3 % (36.0-47.0); LYMPH # 0.6 x10^3/uL (1.0-4.8); LYMPH % 4 % (24-48); MEAN CORPUSCULAR HEMOGLOBIN 32 pg (25-35); MEAN CORPUSCULAR HGB CONC 33 g/dL (31-37); MEAN CORPUSCULAR VOLUME 96 fL (79-100); MONO # 0.9 x10^3/uL (0.0-1.1); MONO % 6 % (0-9); NEUT # 13.1 x10^3uL (1.8-7.7); NEUT % 89 % (31-73); PLATELET COUNT 411 x10^3/uL (140-400); RED BLOOD COUNT 2.85 x10^6/uL (3.50-5.40); RED CELL DISTRIBUTION WIDTH 19.4 % (11.5-14.5); WHITE BLOOD COUNT 14.8 x10^3/uL (4.0-11.0)
--- NOTE | 2018-01-26 22:19 | PHYS DOC ---
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 Patient is 2 weeks status post femoropopliteal bypass performed by Dr. Reina. Patient reports about 4 days ago her lower extremity started to become erythematous. She reports it as progressively worsened since then. She states it is been quite swollen as well. Patient has a history of a left BKA. She denies fever or chills. She denies nausea or vomiting. Review of Systems Review of Systems Constitutional: Denies fever or chills [] Respiratory: Denies cough or shortness of breath [] Cardiovascular: No additional information not addressed in HPI [] GI: Denies abdominal pain, nausea, vomiting Integument: Right lower extremity erythema, warmth with purulent, ulcerated wound at upper thigh Neurologic: Denies focal weakness or sensory changes [] All other systems were reviewed and found to be within normal limits, except as documented in this note. Current Medications Current Medications Current Medications Medications (Trade) Dose Ordered Sig/Martin Start Time Stop Time Status Last Admin Dose Admin Hydromorphone HCl (Dilaudid) 2 mg 1X ONCE 01/26/18 22:00 01/26/18 22:01 DC 01/26/18 22:39 2 MG Vancomycin HCl (Vanco Per Pharmacy) 1 each PRN DAILY PRN 01/26/18 22:45 Vancomycin HCl 1.75 gm/Sodium Chloride 500 ml @ 250 mls/hr 1X ONCE 01/26/18 23:00 01/27/18 00:59 Allergies Allergies Allergies Coded Allergies Type Severity Reaction Last Updated Verified Sulfa (Sulfonamide Antibiotics) Allergy Severe Anaphylaxis 01/06/18 Yes meropenem Allergy Intermediate Rash 01/06/18 Yes piperacillin Allergy Intermediate Rash 01/06/18 Yes strawberry Allergy Intermediate 01/06/18 Yes tazobactam Allergy Intermediate 01/06/18 Yes I S O L A T I O N *CONTACT* Allergy Unknown 01/06/18 Yes cefazolin Adverse Reaction Intermediate Itching 01/06/18 Yes fentanyl Adverse Reaction Intermediate Nausea and Vomiting 01/06/18 Yes Physical Exam Physical Exam Constitutional: Well developed, well nourished, no acute distress, non-toxic appearance. [] HENT: Normocephalic, atraumatic Eyes: PERRLA, EOMI, conjunctiva normal, no discharge. [] Neck: Normal range of motion, no tenderness, supple, no stridor. [] Cardiovascular:Heart rate regular rhythm, no murmur [] Lungs & Thorax: Bilateral breath sounds clear to auscultation [] Abdomen: Bowel sounds normal, soft, no tenderness Skin: Warm, dry, significant erythema to the right lower leg with erythema along the incision site of the upper leg. Ulcerative, purulent wound at the groin Extremities: Right lower extremity tenderness, limited range of motion, edema present Neurologic: Alert and oriented X 3, normal motor function, normal sensory function, no focal deficits noted. [] Psychologic: Affect normal, judgement normal, mood normal. [] Current Patient Data Vital Signs Vital Signs Date Time Temp Pulse Resp B/P (MAP) Pulse Ox O2 Delivery O2 Flow Rate FiO2 01/26/18 21:34 98.7 95 18 167/82 (110) 99 Room Air 98.7 Lab Values Laboratory Tests Test 01/26/18 21:52 White Blood Count 14.8 x10^3/uL (4.0-11.0) H Red Blood Count 2.85 x10^6/uL (3.50-5.40) L Hemoglobin 9.0 g/dL (12.0-15.5) L Hematocrit 27.3 % (36.0-47.0) L Mean Corpuscular Volume 96 fL (79-100) Mean Corpuscular Hemoglobin 32 pg (25-35) Mean Corpuscular Hemoglobin Concent 33 g/dL (31-37) Red Cell Distribution Width 19.4 % (11.5-14.5) H Platelet Count 411 x10^3/uL (140-400) H Neutrophils (%) (Auto) 89 % (31-73) H Lymphocytes (%) (Auto) 4 % (24-48) L Monocytes (%) (Auto) 6 % (0-9) Eosinophils (%) (Auto) 1 % (0-3) Basophils (%) (Auto) 0 % (0-3) Neutrophils # (Auto) 13.1 x10^3uL (1.8-7.7) H Lymphocytes # (Auto) 0.6 x10^3/uL (1.0-4.8) L Monocytes # (Auto) 0.9 x10^3/uL (0.0-1.1) Eosinophils # (Auto) 0.1 x10^3/uL (0.0-0.7) Basophils # (Auto) 0.0 x10^3/uL (0.0-0.2) Platelet Estimate Pending Sodium Level 134 mmol/L (136-145) L Potassium Level 4.8 mmol/L (3.5-5.1) Chloride Level 92 mmol/L (98-107) L Carbon Dioxide Level 28 mmol/L (21-32) Anion Gap 14 (6-14) Blood Urea Nitrogen 64 mg/dL (7-20) H Creatinine 7.4 mg/dL (0.6-1.0) H Estimated GFR (Cockcroft-Gault) 5.8 BUN/Creatinine Ratio 9 (6-20) Glucose Level 196 mg/dL (70-99) H Lactic Acid Level 1.0 mmol/L (0.4-2.0) Calcium Level 8.8 mg/dL (8.5-10.1) Total Bilirubin 0.5 mg/dL (0.2-1.0) Aspartate Amino Transferase (AST) 14 U/L (15-37) L Alanine Aminotransferase (ALT) 9 U/L (14-59) L Alkaline Phosphatase 138 U/L (46-116) H Total Protein 6.4 g/dL (6.4-8.2) Albumin 2.0 g/dL (3.4-5.0) L Albumin/Globulin Ratio 0.5 (1.0-1.7) L Laboratory Tests 01/26/18 21:52 Laboratory Tests 01/26/18 21:52 EKG EKG [] Radiology/Procedures Radiology/Procedures [] Course & Med Decision Making Course & Med Decision Making Pertinent Labs and Imaging studies reviewed. (See chart for details) Anticipate admission. Dr. Saldivar notified of admission for Dr. Reina. D/w Dr. Alcaraz, accepts admission. Dragon Disclaimer Dragon Disclaimer This electronic medical record was generated, in whole or in part, using a voice recognition dictation system. Departure Departure Impression: Primary Impression: Cellulitis of right lower extremity Additional Impressions: Chronic renal failure S/P femoral-popliteal bypass surgery Disposition: ADMITTED INPATIENT Admitting Physician: Other (Dagmar Alcaraz) Condition: GUARDED Referrals: MAGDA ARROYO MD (PCP) Problem Qualifiers Additional Impressions: Chronic renal failure Chronic kidney disease stage: unspecified stage Qualified Codes: N18.9 - Chronic kidney disease, unspecified [facility] [employer] [facility] Jan 26, 2018 22:18
[2018-01-26 22:23] LABS: CALCIUM 8.8 mg/dL (8.5-10.1); CREATININE 7.4 mg/dL (0.6-1.0); GFR 5.8; POTASSIUM 4.8 mmol/L (3.5-5.1)
[2018-01-26 22:29] LABS: ALBUMIN/GLOBULIN RATIO 0.5 (1.0-1.7); TOTAL BILIRUBIN 0.5 mg/dL (0.2-1.0); TOTAL PROTEIN 6.4 g/dL (6.4-8.2)
[2018-01-26] MEDS ORDERED: VANCOMYCIN 1.75 GM in IV NORMAL SALINE 500ML BAG 500 ML IV ONE (23:00)
[2018-01-26 23:14] LABS: % LYMPHS 6 % (24-48); % MONOS 8 % (0-10); % SEGS 86 % (35-66)
[2018-01-26 23:15] LABS: PLT ESTIMATE INCREASED (ADEQUATE)
[2018-01-26] MEDS ORDERED: ONDANSETRON PF 4 MG/2 ML VIAL. IV PRN (23:15)
[2018-01-26 23:16] LABS: ANISOCYTOSIS SLIGHT; POLYCHROMASIA SLIGHT; TOXIC VACUOLATION SLIGHT
[2018-01-27] VITALS (11 sets, daily range): BP systolic 128–181; BP diastolic 57–71
[2018-01-27] MEDS: IV NORMAL SALINE 1000ML BAG 1,000 ML IV SCH ×2 (00:39→12:50)
[2018-01-27] MEDS ORDERED: C.DIFF MED SCREEN BY RX. MC ONE (01:00)
[2018-01-27] MEDS ORDERED: LIDO700A39 TP (01:05)
[2018-01-27] MEDS: VANCOMYCIN PER PHARMACY MC PRN ×2 (01:35→17:17)
[2018-01-27] MEDS: HYDROmorphone 2 MG/ML VIAL IV PRN ×6 (06:20→22:49)
[2018-01-27 06:49] LABS: BASO % 0 % (0-3); EOS # 0.1 x10^3/uL (0.0-0.7); EOS % 1 % (0-3); HEMATOCRIT 23.2 % (36.0-47.0); HEMOGLOBIN 7.8 g/dL (12.0-15.5); LYMPH # 1.1 x10^3/uL (1.0-4.8); LYMPH % 9 % (24-48); MEAN CORPUSCULAR HEMOGLOBIN 32 pg (25-35); MEAN CORPUSCULAR HGB CONC 34 g/dL (31-37); MEAN CORPUSCULAR VOLUME 96 fL (79-100); MONO # 0.9 x10^3/uL (0.0-1.1); MONO % 7 % (0-9); NEUT # 9.9 x10^3uL (1.8-7.7); NEUT % 82 % (31-73); PLATELET COUNT 363 x10^3/uL (140-400); RED BLOOD COUNT 2.41 x10^6/uL (3.50-5.40); RED CELL DISTRIBUTION WIDTH 19.7 % (11.5-14.5)
[2018-01-27 07:20] LABS: ALBUMIN 1.6 g/dL (3.4-5.0); ALBUMIN/GLOBULIN RATIO 0.4 (1.0-1.7); CALCIUM 8.5 mg/dL (8.5-10.1); CREATININE 7.6 mg/dL (0.6-1.0); GFR 5.6; POTASSIUM 4.9 mmol/L (3.5-5.1); TOTAL BILIRUBIN 0.5 mg/dL (0.2-1.0); TOTAL PROTEIN 5.4 g/dL (6.4-8.2)
--- NOTE | 2018-01-27 08:21 | PDOC2 ---
CONSULT Date of Consult Date of Consult DATE: 01/27/18 TIME: 08:13 History of Present Illness Reason for Visit: Patient was seen and examined at the bedside this morning. She was admitted due to worsening wound infection from her surgical site in the right lower extremity. She was instructed by home nursing not to have her wounds covered and a be open to air. These were not the instructions given by our service. In any case her right femoral incision as signs of infection and nonhealing. Past Medical History Cardiovascular: CAD, HTN, DC, Hyperlipidemia, Aortic stenosis, Valve insufficiency, Other Pulmonary: Asthma, COPD, Pneumonia CENTRAL NERVOUS SYSTEM: Other GI: GERD, Other Heme/Onc: Anemia NOS Hepatobiliary: No pertinent hx Psych: No pertinent hx Rheumatologic: Fibromyalgia Infectious disease: Other Renal/: Chronic renal failure Endocrine: Diabetes, Hyperparathyroidism Past Surgical History Past Surgical History: CABG, Hysterectomy, Other Family History Family History: Diabetes, Hypertension Social History ALCOHOL: none Drugs: None, Other Lives: with Family Current Problem List Problem List Problems Medical Problems: (1) Chronic renal failure Status: Acute Current Medications Current Medications Current Medications Hydromorphone HCl (Dilaudid) 2 mg 1X ONCE IV Last administered on 01/26/18at 22 :39; Start 01/26/18 at 22:00; Stop 01/26/18 at 22:01; Status DC Vancomycin HCl (Vanco Per Pharmacy) 1 each PRN DAILY PRN MC SEE COMMENTS Last administered on 01/27/18at 01:35; Start 01/26/18 at 22:45 Vancomycin HCl 1.75 gm/Sodium Chloride 500 ml @ 250 mls/hr 1X ONCE IV Last administered on 01/26/18at 23:53; Start 01/26/18 at 23:00; Stop 01/27/18 at 00:59 ; Status DC Ondansetron HCl (Zofran) 4 mg PRN Q8HRS PRN IV NAUSEA/VOMITING 1ST CHOICE; Start 01/26/18 at 23:15; Stop 01/27/18 at 23:14 Sodium Chloride 1,000 ml @ 75 mls/hr [id number] IV Last administered on at 00:39; Start 01/26/18 at 23:30; Stop 01/27/18 at 23:29 Pharmacy Consult (C.diff Med Screen By Rx) 1 each 1X ONCE MC ; Start 01/27/18 at 01:00; Stop 01/27/18 at 01:03; Status DC Influenza Virus Vaccine (Afluria Trivalent [id number] Syringe) 0.5 ml ONCE ONCE VAX IM ; Start 01/27/18 at 09:00; Stop 01/27/18 at 09:01 Vancomycin HCl (Vancomycin Random Level) 1 each 1X ONCE MC ; Start 01/28/18 at 05:00; Stop 01/28/18 at 05:01 Hydromorphone HCl (Dilaudid) 1 mg PRN Q3HRS PRN IV SEVERE PAIN Last administered on 01/27/18at 06:20; Start 01/27/18 at 03:30 Active Scripts Active Percocet 10-325 Mg Tablet (Oxycodone/Acetaminophen) 1 Each Tablet 1 Tab PO Q4HRS Brilinta (Ticagrelor) 90 Mg Tablet 90 Mg PO BID 30 Days Morphine Sulfate Er (Morphine Sulfate) 15 Mg Tablet.er 15 Mg PO BID Reported Lidocaine 1 Each Adh..patch 1 Each TP PRN DAILY PRN Calcitriol 0.25 Mcg Capsule 1 Cap PO DAILY Tegretol (Carbamazepine) 200 Mg Tablet 1 Tab PO BID Tramadol Hcl 50 Mg Tablet 50 Mg PO Q4HRS PRN Lantus Solostar (Insulin Glargine,Hum.rec.anlog) 100 Unit/1 Ml Insuln.pen 22 Unit SQ QHS Diflucan (Fluconazole) 100 Mg Tablet 100 Mg PO PRN Carvedilol 3.125 Mg Tablet 12.5 Mg PO BID Erythromycin (Erythromycin Base) 250 Mg Capsule.dr 250 Mg PO BID Cardizem Cd (Diltiazem Hcl) 180 Mg Cap.er.24h 120 Mg PO DAILY Amiodarone Hcl 200 Mg Tablet 1 Tab PO DAILY Nystatin 15 Gm Powder 1 Susanna TP PRN BID PRN Proventil Hfa Inhaler (Albuterol Sulfate) 6.7 Gm Hfa.aer.ad 2 Puff IH BID PRN Zofran (Ondansetron Hcl) 4 Mg Tablet 4 Mg PO Q6-8HRS PRN Nephro-Shabbir Tablet (Folic Acid/Vitamin B Comp W-C) 0.8 Mg Tablet 1 Tab PO DAILY Tricor (Fenofibrate Nanocrystallized) 145 Mg Tablet 1 Tab PO HS Lipitor (Atorvastatin Calcium) 80 Mg Tablet 80 Mg PO HS Niacin 500 Mg Tablet 500 Mg PO HS Novolog (Insulin Aspart) 100 Unit/1 Ml Cartridge 0 SQ TIDAC sliding scale Aspirin 325 Mg Tablet 325 Mg PO DAILY Furosemide 80 Mg Tablet 80 Mg PO BID Docusate Sodium 100 Mg Capsule 1 Cap PO PRN PRN Nitrostat (Nitroglycerin) 0.4 Mg Tab.subl 0.4 Mg SL PRN Q5MIN PRN Take as needed for chest pain Allergies Allergies: Coded Allergies: Sulfa (Sulfonamide Antibiotics) (Verified Allergy, Severe, Anaphylaxis, 04/13) meropenem (Verified Allergy, Intermediate, Rash, 01/06/18) Tolerates ancef piperacillin (Verified Allergy, Intermediate, Rash, 01/06/18) Tolerates ancef strawberry (Verified Allergy, Intermediate, 01/06/18) tazobactam (Verified Allergy, Intermediate, 01/06/18) I S O L A T I O N *CONTACT* (Verified Allergy, Unknown, 01/06/18) vre cefazolin (Verified Adverse Reaction, Intermediate, Itching, 01/06/18) Causes Vomiting fentanyl (Verified Adverse Reaction, Intermediate, Nausea and Vomiting, 04/13) Vomiting ROS Skin: Yes Rash, Yes Other (surgical site breakdown) Physical Exam General: Alert, Oriented X3, Cooperative, No acute distress HEENT: Atraumatic, PERRLA, EOMI Lungs: Clear to auscultation, Normal air movement Heart: Regular rate, Normal S1, Normal S2 Abdomen: Normal bowel sounds, Soft, No tenderness Extremities: No clubbing, No cyanosis Skin: Other (dehiscence of the proximal right common femoral incision and vein harvest site with lower extremity edema and mild cellulitis) Neuro: Normal speech, Strength at 5/5 X4 ext, Normal tone MUSCULOSKELETAL: No joint tenderness, Full range of motion without pain Vitals VITALS Vital Signs Date Time Temp Pulse Resp B/P (MAP) Pulse Ox O2 Delivery O2 Flow Rate FiO2 01/27/18 08:00 Room Air 01/27/18 07:00 98.6 91 20 128/61 (83) 95 98.6 Labs Labs Laboratory Tests Test 01/26/18 21:52 01/27/18 05:50 01/27/18 07:43 White Blood Count 14.8 x10^3/uL (4.0-11.0) 12.0 x10^3/uL (4.0-11.0) Red Blood Count 2.85 x10^6/uL (3.50-5.40) 2.41 x10^6/uL (3.50-5.40) Hemoglobin 9.0 g/dL (12.0-15.5) 7.8 g/dL (12.0-15.5) Hematocrit 27.3 % (36.0-47.0) 23.2 % (36.0-47.0) Mean Corpuscular Volume 96 fL (79-100) 96 fL (79-100) Mean Corpuscular Hemoglobin 32 pg (25-35) 32 pg (25-35) Mean Corpuscular Hemoglobin Concent 33 g/dL (31-37) 34 g/dL (31-37) Red Cell Distribution Width 19.4 % (11.5-14.5) 19.7 % (11.5-14.5) Platelet Count 411 x10^3/uL (140-400) 363 x10^3/uL (140-400) Neutrophils (%) (Auto) 89 % (31-73) 82 % (31-73) Lymphocytes (%) (Auto) 4 % (24-48) 9 % (24-48) Monocytes (%) (Auto) 6 % (0-9) 7 % (0-9) Eosinophils (%) (Auto) 1 % (0-3) 1 % (0-3) Basophils (%) (Auto) 0 % (0-3) 0 % (0-3) Neutrophils # (Auto) 13.1 x10^3uL (1.8-7.7) 9.9 x10^3uL (1.8-7.7) Lymphocytes # (Auto) 0.6 x10^3/uL (1.0-4.8) 1.1 x10^3/uL (1.0-4.8) Monocytes # (Auto) 0.9 x10^3/uL (0.0-1.1) 0.9 x10^3/uL (0.0-1.1) Eosinophils # (Auto) 0.1 x10^3/uL (0.0-0.7) 0.1 x10^3/uL (0.0-0.7) Basophils # (Auto) 0.0 x10^3/uL (0.0-0.2) 0.0 x10^3/uL (0.0-0.2) Segmented Neutrophils % 86 % (35-66) Lymphocytes % 6 % (24-48) Monocytes % 8 % (0-10) Toxic Vacuolation Slight Platelet Estimate Increased (ADEQUATE) Giant Platelets Occ Polychromasia Slight Anisocytosis Slight Sodium Level 134 mmol/L (136-145) 135 mmol/L (136-145) Potassium Level 4.8 mmol/L (3.5-5.1) 4.9 mmol/L (3.5-5.1) Chloride Level 92 mmol/L (98-107) 96 mmol/L (98-107) Carbon Dioxide Level 28 mmol/L (21-32) 28 mmol/L (21-32) Anion Gap 14 (6-14) 11 (6-14) Blood Urea Nitrogen 64 mg/dL (7-20) 65 mg/dL (7-20) Creatinine 7.4 mg/dL (0.6-1.0) 7.6 mg/dL (0.6-1.0) Estimated GFR (Cockcroft-Gault) 5.8 5.6 BUN/Creatinine Ratio 9 (6-20) 9 (6-20) Glucose Level 196 mg/dL (70-99) 143 mg/dL (70-99) Lactic Acid Level 1.0 mmol/L (0.4-2.0) Calcium Level 8.8 mg/dL (8.5-10.1) 8.5 mg/dL (8.5-10.1) Total Bilirubin 0.5 mg/dL (0.2-1.0) 0.5 mg/dL (0.2-1.0) Aspartate Amino Transf (AST/SGOT) 14 U/L (15-37) 10 U/L (15-37) Alanine Aminotransferase (ALT/SGPT) 9 U/L (14-59) 8 U/L (14-59) Alkaline Phosphatase 138 U/L (46-116) 109 U/L (46-116) Total Protein 6.4 g/dL (6.4-8.2) 5.4 g/dL (6.4-8.2) Albumin 2.0 g/dL (3.4-5.0) 1.6 g/dL (3.4-5.0) Albumin/Globulin Ratio 0.5 (1.0-1.7) 0.4 (1.0-1.7) Glucose (Fingerstick) 106 mg/dL (70-99) Laboratory Tests Test 01/26/18 21:52 01/27/18 05:50 01/27/18 07:43 White Blood Count 14.8 x10^3/uL (4.0-11.0) 12.0 x10^3/uL (4.0-11.0) Red Blood Count 2.85 x10^6/uL (3.50-5.40) 2.41 x10^6/uL (3.50-5.40) Hemoglobin 9.0 g/dL (12.0-15.5) 7.8 g/dL (12.0-15.5) Hematocrit 27.3 % (36.0-47.0) 23.2 % (36.0-47.0) Mean Corpuscular Volume 96 fL (79-100) 96 fL (79-100) Mean Corpuscular Hemoglobin 32 pg (25-35) 32 pg (25-35) Mean Corpuscular Hemoglobin Concent 33 g/dL (31-37) 34 g/dL (31-37) Red Cell Distribution Width 19.4 % (11.5-14.5) 19.7 % (11.5-14.5) Platelet Count 411 x10^3/uL (140-400) 363 x10^3/uL (140-400) Neutrophils (%) (Auto) 89 % (31-73) 82 % (31-73) Lymphocytes (%) (Auto) 4 % (24-48) 9 % (24-48) Monocytes (%) (Auto) 6 % (0-9) 7 % (0-9) Eosinophils (%) (Auto) 1 % (0-3) 1 % (0-3) Basophils (%) (Auto) 0 % (0-3) 0 % (0-3) Neutrophils # (Auto) 13.1 x10^3uL (1.8-7.7) 9.9 x10^3uL (1.8-7.7) Lymphocytes # (Auto) 0.6 x10^3/uL (1.0-4.8) 1.1 x10^3/uL (1.0-4.8) Monocytes # (Auto) 0.9 x10^3/uL (0.0-1.1) 0.9 x10^3/uL (0.0-1.1) Eosinophils # (Auto) 0.1 x10^3/uL (0.0-0.7) 0.1 x10^3/uL (0.0-0.7) Basophils # (Auto) 0.0 x10^3/uL (0.0-0.2) 0.0 x10^3/uL (0.0-0.2) Segmented Neutrophils % 86 % (35-66) Lymphocytes % 6 % (24-48) Monocytes % 8 % (0-10) Toxic Vacuolation Slight Platelet Estimate Increased (ADEQUATE) Giant Platelets Occ Polychromasia Slight Anisocytosis Slight Sodium Level 134 mmol/L (136-145) 135 mmol/L (136-145) Potassium Level 4.8 mmol/L (3.5-5.1) 4.9 mmol/L (3.5-5.1) Chloride Level 92 mmol/L (98-107) 96 mmol/L (98-107) Carbon Dioxide Level 28 mmol/L (21-32) 28 mmol/L (21-32) Anion Gap 14 (6-14) 11 (6-14) Blood Urea Nitrogen 64 mg/dL (7-20) 65 mg/dL (7-20) Creatinine 7.4 mg/dL (0.6-1.0) 7.6 mg/dL (0.6-1.0) Estimated GFR (Cockcroft-Gault) 5.8 5.6 BUN/Creatinine Ratio 9 (6-20) 9 (6-20) Glucose Level 196 mg/dL (70-99) 143 mg/dL (70-99) Lactic Acid Level 1.0 mmol/L (0.4-2.0) Calcium Level 8.8 mg/dL (8.5-10.1) 8.5 mg/dL (8.5-10.1) Total Bilirubin 0.5 mg/dL (0.2-1.0) 0.5 mg/dL (0.2-1.0) Aspartate Amino Transf (AST/SGOT) 14 U/L (15-37) 10 U/L (15-37) Alanine Aminotransferase (ALT/SGPT) 9 U/L (14-59) 8 U/L (14-59) Alkaline Phosphatase 138 U/L (46-116) 109 U/L (46-116) Total Protein 6.4 g/dL (6.4-8.2) 5.4 g/dL (6.4-8.2) Albumin 2.0 g/dL (3.4-5.0) 1.6 g/dL (3.4-5.0) Albumin/Globulin Ratio 0.5 (1.0-1.7) 0.4 (1.0-1.7) Glucose (Fingerstick) 106 mg/dL (70-99) Assessment/Plan Assessment/Plan Right femoral surgical site infection--the patient will need operative debridement of the right femoral incision as well as the vein harvest site. We have made the patient nothing by mouth today and plan on doing this later this afternoon. All questions were answered her satisfaction this morning and we will likely manage the wound with a negative pressure VAC dressing following surgery. ROSMERY QUIROGA DO Jan 27, 2018 08:21
[2018-01-27] MEDS ORDERED: LIDOCAINE (700MG/PATCH) PATCH. TD PRN (09:00)
[2018-01-27] MEDS ORDERED: IV RINGERS,LACTATED 1000ML 1,000 ML IV SCH (10:35)
[2018-01-27] MEDS ORDERED: fentaNYL PF VIAL 100 MCG/2 ML VIAL IV PRN ×2 (10:45)
[2018-01-27] MEDS ORDERED: LIDOCAINE 1% PF 2 ML VIAL. ID PRN (10:45)
[2018-01-27] MEDS ORDERED: ONDANSETRON PF 4 MG/2 ML VIAL. IV PRN (10:45)
[2018-01-27] MEDS ORDERED: PROCHLORPERAZINE 10 MG/2 ML VIAL. IV PRN (10:45)
--- NOTE | 2018-01-27 11:40 | PDOC1 ---
History and Physical Date of Admission Date of Admission DATE: 01/27/18 TIME: 11:38 Identification/Chief Complaint Chief Complaint Open leg wound Source Source: Patient History of Present Illness History of Present Illness Ms. Rosenbaum, is a 52 year old female admit with redness and leg pain acute pain to right leg with swelling. She was just discharged from the hospital recently after being admitted for cellulitis and hypocalcemia, is finishing her keflex at home and wound care as well. PT denies any drainage from her RLE, fever, cough, or abdominal pain. Pt states she is due for peritoneal dialysis at 1800. Pt states that she has experienced burning and pressure in her chest today with shortness of breath. She finished a round of Cipro for recent UTI yesterday and has continued to take Keflex for her cellulitis. Patient denies having chest pain or palpitations. Currently she reports her pain is a 6 out of 10 on the pain scale , she has not taken anything prior to arrival for relief of her pain. Patient is concerned that there is a blood clot in her leg because she had traveled to [place] via car in the middle of October. She does have an open wound in her right groin which she feels is somewhat foul smelling. Culture was obtained in ED and she was noted tachycardic in the 110s with a WBC of 14.8 initially. Past Medical History Cardiovascular: CAD, HTN, [place], Hyperlipidemia, Aortic stenosis, Valve insufficiency, Other Pulmonary: Asthma, COPD, Pneumonia CENTRAL NERVOUS SYSTEM: Other GI: GERD, Other Heme/Onc: Anemia NOS Hepatobiliary: No pertinent hx Psych: No pertinent hx Rheumatologic: Fibromyalgia Infectious disease: Other Renal/: Chronic renal failure Endocrine: Diabetes, Hyperparathyroidism Past Surgical History Past Surgical History: CABG, Hysterectomy, Other Family History Family History: Diabetes, Hypertension Social History ALCOHOL: none Drugs: None, Other Current Problem List Problem List Problems Medical Problems: (1) Chronic renal failure Status: Acute Current Medications Current Medications Current Medications Hydromorphone HCl (Dilaudid) 2 mg 1X ONCE IV Last administered on 01/26/18at 22 :39; Start 01/26/18 at 22:00; Stop 01/26/18 at 22:01; Status DC Vancomycin HCl (Vanco Per Pharmacy) 1 each PRN DAILY PRN MC SEE COMMENTS Last administered on 01/27/18at 01:35; Start 01/26/18 at 22:45 Vancomycin HCl 1.75 gm/Sodium Chloride 500 ml @ 250 mls/hr 1X ONCE IV Last administered on 01/26/18at 23:53; Start 01/26/18 at 23:00; Stop 01/27/18 at 00:59 ; Status DC Ondansetron HCl (Zofran) 4 mg PRN Q8HRS PRN IV NAUSEA/VOMITING 1ST CHOICE; Start 01/26/18 at 23:15; Stop 01/27/18 at 23:14 Sodium Chloride 1,000 ml @ 75 mls/hr [id number] IV Last administered on at 00:39; Start 01/26/18 at 23:30; Stop 01/27/18 at 23:29 Pharmacy Consult (C.diff Med Screen By Rx) 1 each 1X ONCE MC ; Start 01/27/18 at 01:00; Stop 01/27/18 at 01:03; Status DC Influenza Virus Vaccine (Afluria Trivalent [id number] Syringe) 0.5 ml ONCE ONCE VAX IM ; Start 01/27/18 at 09:00; Stop 01/27/18 at 09:01; Status DC Vancomycin HCl (Vancomycin Random Level) 1 each 1X ONCE MC ; Start 01/28/18 at 05:00; Stop 01/28/18 at 05:01 Hydromorphone HCl (Dilaudid) 1 mg PRN Q3HRS PRN IV SEVERE PAIN Last administered on 01/27/18at 06:20; Start 01/27/18 at 03:30 Ondansetron HCl (Zofran) 4 mg PRN Q6HRS PRN IV NAUSEA/VOMITING; Start 01/27/18 at 10:45; Stop 01/27/18 at 18:00 Fentanyl Citrate (Fentanyl 2ml Vial) 25 mcg PRN Q5MIN PRN IV MILD PAIN; Start 01/27/18 at 10:45; Stop 01/27/18 at 18:00 Fentanyl Citrate (Fentanyl 2ml Vial) 50 mcg PRN Q5MIN PRN IV MODERATE TO SEVERE PAIN; Start 01/27/18 at 10:45; Stop 01/27/18 at 18:00 Morphine Sulfate (Morphine Sulfate) 1 mg PRN Q10MIN PRN IV SEVERE PAIN; Start 01/27/18 at 10:45; Stop 01/27/18 at 18:00 Ringer's Solution 1,000 ml @ 30 mls/hr Q24H IV ; Start 01/27/18 at 10:35; Stop 01/27/18 at 22:34 Lidocaine HCl (Xylocaine-Mpf 1% 2ml Vial) 2 ml 1X PRN PRN ID IV START; Start 01/27/18 at 10:45; Stop 01/27/18 at 18:00 Hydromorphone HCl (Dilaudid) 0.5 mg PRN Q10MIN PRN IV SEV PAIN, Second choice; Start 01/27/18 at 10:45; Stop 01/27/18 at 18:00 Prochlorperazine Edisylate (Compazine) 5 mg PACU PRN PRN IV NAUSEA, MRX1; Start 01/27/18 at 10:45; Stop 01/27/18 at 18:00 Active Scripts Active Percocet 10-325 Mg Tablet (Oxycodone/Acetaminophen) 1 Each Tablet 1 Tab PO Q4HRS Brilinta (Ticagrelor) 90 Mg Tablet 90 Mg PO BID 30 Days Morphine Sulfate Er (Morphine Sulfate) 15 Mg Tablet.er 15 Mg PO BID Reported Lidocaine 1 Each Adh..patch 1 Each TP PRN DAILY PRN Calcitriol 0.25 Mcg Capsule 1 Cap PO DAILY Tegretol (Carbamazepine) 200 Mg Tablet 1 Tab PO BID Tramadol Hcl 50 Mg Tablet 50 Mg PO Q4HRS PRN Lantus Solostar (Insulin Glargine,Hum.rec.anlog) 100 Unit/1 Ml Insuln.pen 22 Unit SQ QHS Diflucan (Fluconazole) 100 Mg Tablet 100 Mg PO PRN Carvedilol 3.125 Mg Tablet 12.5 Mg PO BID Erythromycin (Erythromycin Base) 250 Mg Capsule.dr 250 Mg PO BID Cardizem Cd (Diltiazem Hcl) 180 Mg Cap.er.24h 120 Mg PO DAILY Amiodarone Hcl 200 Mg Tablet 1 Tab PO DAILY Nystatin 15 Gm Powder 1 Susanna TP PRN BID PRN Proventil Hfa Inhaler (Albuterol Sulfate) 6.7 Gm Hfa.aer.ad 2 Puff IH BID PRN Zofran (Ondansetron Hcl) 4 Mg Tablet 4 Mg PO Q6-8HRS PRN Nephro-Shabbir Tablet (Folic Acid/Vitamin B Comp W-C) 0.8 Mg Tablet 1 Tab PO DAILY Tricor (Fenofibrate Nanocrystallized) 145 Mg Tablet 1 Tab PO HS Lipitor (Atorvastatin Calcium) 80 Mg Tablet 80 Mg PO HS Niacin 500 Mg Tablet 500 Mg PO HS Novolog (Insulin Aspart) 100 Unit/1 Ml Cartridge 0 SQ TIDAC sliding scale Aspirin 325 Mg Tablet 325 Mg PO DAILY Furosemide 80 Mg Tablet 80 Mg PO BID Docusate Sodium 100 Mg Capsule 1 Cap PO PRN PRN Nitrostat (Nitroglycerin) 0.4 Mg Tab.subl 0.4 Mg SL PRN Q5MIN PRN Take as needed for chest pain Allergies Allergies: Coded Allergies: Sulfa (Sulfonamide Antibiotics) (Verified Allergy, Severe, Anaphylaxis, 04/13) meropenem (Verified Allergy, Intermediate, Rash, 01/06/18) Tolerates ancef piperacillin (Verified Allergy, Intermediate, Rash, 01/06/18) Tolerates ancef strawberry (Verified Allergy, Intermediate, 01/06/18) tazobactam (Verified Allergy, Intermediate, 01/06/18) cefazolin (Verified Adverse Reaction, Intermediate, Itching, 01/06/18) Causes Vomiting fentanyl (Verified Adverse Reaction, Intermediate, Nausea and Vomiting, 04/13) Vomiting ROS General: YES: Fatigue, Malaise PSYCHOLOGICAL ROS: No: Anxiety, Behavioral Disorder, Concentration difficultie , Decreased libido, Depression, Disorientation, Hallucinations, Hostility, Irritablity, Memory difficulties, Mood Swings, Obsessive thoughts, Physical abuse, Sexual abuse, Sleep disturbances, Suicidal ideation, Other Eyes: No Blurry vision, No Decreased vision, No Double vision, No Dry eyes, No Excessive tearing, No Eye Pain, No Itchy Eyes, No Loss of vision, No Photophobia , No Scotomata, No Uses contacts, No Uses glasses, No Other HEENT: No: Heacaches, Visual Changes, Hearing change, Nasal congestion, Nasal discharge, Oral lesions, Sinus pain, Sore Throat, Epistaxis, Sneezing, Snoring, Tinnitus, Vertigo, Vocal changes, Other ALLERGY AND IMMUNOLOGY: No: Hives, Insect Bite Sensitivity, Itchy/Watery Eyes, Nasal Congestion, Post Nasal Drip, Seasonal Allergies, Other Hematological and Lymphatic: YES: Blood Clots ENDOCRINE: No: Breast Changes, Galactorrhea, Hair Pattern Changes, Hot Flashes , Malaise/lethargy, Mood Swings, Palpitations, Polydipsia/polyuria, Skin Changes , Temperature Intolerance, Unexpected Weight Changes, Other Respiratory: No: Cough, Hemoptysis, Orthopnea, Pleuritic Pain, Shortness of breath, SOB with excertion, Sputum Changes, Stridor, Tachypnea, Wheezing, Other Cardiovascular: No Chest Pain, No Palpitations, No Orthopnea, No Paroxysmal Noc. Dyspnea, No Edema, No Lt Headedness, No Other Gastrointestinal: No Nausea, No Vomiting, No Abdominal Pain, No Diarrhea, No Constipation, No Melena, No Hematochezia, No Other Genitourinary: No Dysuria, No Frequency, No Incontinence, No Hematuria, No Retention, No Discharge, No Urgency, No Pain, No Flank Pain, No Other, No , No , No , No , No , No , No Musculoskeletal: Yes Gait Disturbance Skin: Yes Rash Physical Exam General: Alert, Oriented X3, Cooperative HEENT: Atraumatic, PERRLA, EOMI Lungs: Clear to auscultation, Normal air movement Heart: S1S2, RRR Abdomen: Normal bowel sounds, Soft, No tenderness, Other (PD cath clean dry and intact) Rectal Exam: not examined Extremities: Other (RLE red along staple line with swollen red foot and right groin open wound, foul smelling. LLE BKA clean) Neuro: Normal speech, Strength at 5/5 X4 ext Vitals Vitals Vital Signs Date Time Temp Pulse Resp B/P (MAP) Pulse Ox O2 Delivery O2 Flow Rate FiO2 01/27/18 08:00 Room Air 01/27/18 07:00 98.6 91 20 128/61 (83) 95 98.6 Labs Labs Laboratory Tests Test 01/26/18 21:52 01/27/18 05:50 01/27/18 07:43 01/27/18 11:13 White Blood Count 14.8 x10^3/uL (4.0-11.0) 12.0 x10^3/uL (4.0-11.0) Red Blood Count 2.85 x10^6/uL (3.50-5.40) 2.41 x10^6/uL (3.50-5.40) Hemoglobin 9.0 g/dL (12.0-15.5) 7.8 g/dL (12.0-15.5) Hematocrit 27.3 % (36.0-47.0) 23.2 % (36.0-47.0) Mean Corpuscular Volume 96 fL (79-100) 96 fL (79-100) Mean Corpuscular Hemoglobin 32 pg (25-35) 32 pg (25-35) Mean Corpuscular Hemoglobin Concent 33 g/dL (31-37) 34 g/dL (31-37) Red Cell Distribution Width 19.4 % (11.5-14.5) 19.7 % (11.5-14.5) Platelet Count 411 x10^3/uL (140-400) 363 x10^3/uL (140-400) Neutrophils (%) (Auto) 89 % (31-73) 82 % (31-73) Lymphocytes (%) (Auto) 4 % (24-48) 9 % (24-48) Monocytes (%) (Auto) 6 % (0-9) 7 % (0-9) Eosinophils (%) (Auto) 1 % (0-3) 1 % (0-3) Basophils (%) (Auto) 0 % (0-3) 0 % (0-3) Neutrophils # (Auto) 13.1 x10^3uL (1.8-7.7) 9.9 x10^3uL (1.8-7.7) Lymphocytes # (Auto) 0.6 x10^3/uL (1.0-4.8) 1.1 x10^3/uL (1.0-4.8) Monocytes # (Auto) 0.9 x10^3/uL (0.0-1.1) 0.9 x10^3/uL (0.0-1.1) Eosinophils # (Auto) 0.1 x10^3/uL (0.0-0.7) 0.1 x10^3/uL (0.0-0.7) Basophils # (Auto) 0.0 x10^3/uL (0.0-0.2) 0.0 x10^3/uL (0.0-0.2) Segmented Neutrophils % 86 % (35-66) Lymphocytes % 6 % (24-48) Monocytes % 8 % (0-10) Toxic Vacuolation Slight Platelet Estimate Increased (ADEQUATE) Giant Platelets Occ Polychromasia Slight Anisocytosis Slight Sodium Level 134 mmol/L (136-145) 135 mmol/L (136-145) Potassium Level 4.8 mmol/L (3.5-5.1) 4.9 mmol/L (3.5-5.1) Chloride Level 92 mmol/L (98-107) 96 mmol/L (98-107) Carbon Dioxide Level 28 mmol/L (21-32) 28 mmol/L (21-32) Anion Gap 14 (6-14) 11 (6-14) Blood Urea Nitrogen 64 mg/dL (7-20) 65 mg/dL (7-20) Creatinine 7.4 mg/dL (0.6-1.0) 7.6 mg/dL (0.6-1.0) Estimated GFR (Cockcroft-Gault) 5.8 5.6 BUN/Creatinine Ratio 9 (6-20) 9 (6-20) Glucose Level 196 mg/dL (70-99) 143 mg/dL (70-99) Lactic Acid Level 1.0 mmol/L (0.4-2.0) Calcium Level 8.8 mg/dL (8.5-10.1) 8.5 mg/dL (8.5-10.1) Total Bilirubin 0.5 mg/dL (0.2-1.0) 0.5 mg/dL (0.2-1.0) Aspartate Amino Transf (AST/SGOT) 14 U/L (15-37) 10 U/L (15-37) Alanine Aminotransferase (ALT/SGPT) 9 U/L (14-59) 8 U/L (14-59) Alkaline Phosphatase 138 U/L (46-116) 109 U/L (46-116) Total Protein 6.4 g/dL (6.4-8.2) 5.4 g/dL (6.4-8.2) Albumin 2.0 g/dL (3.4-5.0) 1.6 g/dL (3.4-5.0) Albumin/Globulin Ratio 0.5 (1.0-1.7) 0.4 (1.0-1.7) Glucose (Fingerstick) 106 mg/dL (70-99) 99 mg/dL (70-99) Laboratory Tests Test 01/26/18 21:52 01/27/18 05:50 01/27/18 07:43 01/27/18 11:13 White Blood Count 14.8 x10^3/uL (4.0-11.0) 12.0 x10^3/uL (4.0-11.0) Red Blood Count 2.85 x10^6/uL (3.50-5.40) 2.41 x10^6/uL (3.50-5.40) Hemoglobin 9.0 g/dL (12.0-15.5) 7.8 g/dL (12.0-15.5) Hematocrit 27.3 % (36.0-47.0) 23.2 % (36.0-47.0) Mean Corpuscular Volume 96 fL (79-100) 96 fL (79-100) Mean Corpuscular Hemoglobin 32 pg (25-35) 32 pg (25-35) Mean Corpuscular Hemoglobin Concent 33 g/dL (31-37) 34 g/dL (31-37) Red Cell Distribution Width 19.4 % (11.5-14.5) 19.7 % (11.5-14.5) Platelet Count 411 x10^3/uL (140-400) 363 x10^3/uL (140-400) Neutrophils (%) (Auto) 89 % (31-73) 82 % (31-73) Lymphocytes (%) (Auto) 4 % (24-48) 9 % (24-48) Monocytes (%) (Auto) 6 % (0-9) 7 % (0-9) Eosinophils (%) (Auto) 1 % (0-3) 1 % (0-3) Basophils (%) (Auto) 0 % (0-3) 0 % (0-3) Neutrophils # (Auto) 13.1 x10^3uL (1.8-7.7) 9.9 x10^3uL (1.8-7.7) Lymphocytes # (Auto) 0.6 x10^3/uL (1.0-4.8) 1.1 x10^3/uL (1.0-4.8) Monocytes # (Auto) 0.9 x10^3/uL (0.0-1.1) 0.9 x10^3/uL (0.0-1.1) Eosinophils # (Auto) 0.1 x10^3/uL (0.0-0.7) 0.1 x10^3/uL (0.0-0.7) Basophils # (Auto) 0.0 x10^3/uL (0.0-0.2) 0.0 x10^3/uL (0.0-0.2) Segmented Neutrophils % 86 % (35-66) Lymphocytes % 6 % (24-48) Monocytes % 8 % (0-10) Toxic Vacuolation Slight Platelet Estimate Increased (ADEQUATE) Giant Platelets Occ Polychromasia Slight Anisocytosis Slight Sodium Level 134 mmol/L (136-145) 135 mmol/L (136-145) Potassium Level 4.8 mmol/L (3.5-5.1) 4.9 mmol/L (3.5-5.1) Chloride Level 92 mmol/L (98-107) 96 mmol/L (98-107) Carbon Dioxide Level 28 mmol/L (21-32) 28 mmol/L (21-32) Anion Gap 14 (6-14) 11 (6-14) Blood Urea Nitrogen 64 mg/dL (7-20) 65 mg/dL (7-20) Creatinine 7.4 mg/dL (0.6-1.0) 7.6 mg/dL (0.6-1.0) Estimated GFR (Cockcroft-Gault) 5.8 5.6 BUN/Creatinine Ratio 9 (6-20) 9 (6-20) Glucose Level 196 mg/dL (70-99) 143 mg/dL (70-99) Lactic Acid Level 1.0 mmol/L (0.4-2.0) Calcium Level 8.8 mg/dL (8.5-10.1) 8.5 mg/dL (8.5-10.1) Total Bilirubin 0.5 mg/dL (0.2-1.0) 0.5 mg/dL (0.2-1.0) Aspartate Amino Transf (AST/SGOT) 14 U/L (15-37) 10 U/L (15-37) Alanine Aminotransferase (ALT/SGPT) 9 U/L (14-59) 8 U/L (14-59) Alkaline Phosphatase 138 U/L (46-116) 109 U/L (46-116) Total Protein 6.4 g/dL (6.4-8.2) 5.4 g/dL (6.4-8.2) Albumin 2.0 g/dL (3.4-5.0) 1.6 g/dL (3.4-5.0) Albumin/Globulin Ratio 0.5 (1.0-1.7) 0.4 (1.0-1.7) Glucose (Fingerstick) 106 mg/dL (70-99) 99 mg/dL (70-99) VTE Prophylaxis Ordered VTE Prophylaxis Devices: Contraindicated VTE Pharmacological Prophylaxi: Yes Assessment/Plan Assessment/Plan A/P: Right groin wound - cultures obtained, antibiotics, to OR. Dressing changes per surgery RLE cellulitis - swelling looks a bit improved, cont antibiotics, the staple line appears red ESRD on PD - consult nephrology, she does use HD occasionally, has been using 4 bags during day as she has trouble at night Diabetes with Hyperglycemia - will place on sliding scale insulin after surgery CAD with HTN - managed on meds, will add prn labetalol JEREMIAS VERDUGO MD Jan 27, 2018 11:39
[2018-01-27] MEDS ORDERED: NYSTATIN TOPICAL POWDER 15GM BOTTLE. TP PRN (12:00)
[2018-01-27] MEDS ORDERED: FLUCONAZOLE 100 MG PO SCH (12:00)
[2018-01-27] MEDS ORDERED: NON FORMULARY ITEM (Albuterol Sulfate (Proventil Hfa Inhaler) 2 PUFF) IH PRN (12:00)
[2018-01-27] MEDS ORDERED: NITROGLYCERIN SUBLINGUAL 0.4 MG BOTTLE OF 25. SL PRN (12:00)
[2018-01-27] MEDS ORDERED: BACITRACIN 50,000 UNIT VIAL. IRR ONE (12:14)
[2018-01-27] MEDS: FUROSEMIDE 80 MG TABLET. PO SCH ×2 (12:30→16:00)
[2018-01-27] MEDS: MORPHINE ER 15 MG TABLET.ER PO SCH ×2 (12:30→21:12)
[2018-01-27] MEDS: carBAMazepine 200 MG TABLET PO SCH ×2 (12:30→21:12)
[2018-01-27] MEDS: ASPIRIN 325 MG TABLET PO SCH (12:30)
[2018-01-27] MEDS: CALCITRIOL 0.25 MCG CAPSULE. PO SCH (12:30)
[2018-01-27] MEDS: CARVEDILOL 12.5 MG TABLET. PO SCH ×2 (12:30→17:00)
[2018-01-27] MEDS: FOLIC/VIT B COMP W-C (RENAL) TABLET. PO SCH (12:30)
[2018-01-27] MEDS: AMIODARONE HCL 200 MG TABLET. PO SCH (12:30)
[2018-01-27] MEDS ORDERED: HYDROmorphone 2 MG/ML VIAL ONE ×2 (12:36→15:38)
[2018-01-27] MEDS ORDERED: PROPOFOL 20 ML IV ONE (12:38)
--- NOTE | 2018-01-27 12:43 | PDOC2 ---
CONSULT Date of Consult Date of Consult DATE: 01/27/18 TIME: 12:35 Reason for Consult Reason for Consult: ESRD Identification/Chief Complaint Chief Complaint Acute leg pain Now better Source Source: Chart review, Patient History of Present Illness Reason for Visit: Ms. Rosenbaum, is a 52 year old female admitted on 01/27 with c/o redness and leg pain acute pain to right leg. w. swelling she was just discharged from the hospital recently after being admitted for cellulitis and hypocalcemia.She finished Cipro for recent UTI yesterday and still on Po Keflex for her cellulitis. Currently she reported her pain is a 6 out of 10 on the pain scale.She was concerned that there is a blood clot in her leg because she had traveled to [place] via car in the middle of October. Pt was taken to the OR and I was Not able to see Pt yesterday Today she is post Debridement . Denies any drainage from her RLE, fever, cough , or abdominal pain.Denies any CP or SOB She has switched to peritoneal dialysis from HD and Intermittently still doses HD if indicated Last Night unable to do PD - due difficult with filling. Pt reports she does better with CAPD and Not CCPD Past Medical History Cardiovascular: CAD, HTN, LA, Hyperlipidemia, Aortic stenosis, Valve insufficiency, Other Pulmonary: Asthma, COPD, Pneumonia CENTRAL NERVOUS SYSTEM: Other GI: GERD, Other Heme/Onc: Anemia NOS Hepatobiliary: No pertinent hx Psych: No pertinent hx Rheumatologic: Fibromyalgia Infectious disease: Other Renal/: Chronic renal failure Endocrine: Diabetes, Hyperparathyroidism Past Surgical History Past Surgical History: CABG, Hysterectomy, Other Family History Family History: Diabetes, Hypertension Social History ALCOHOL: none Drugs: None, Other Lives: with Family Current Problem List Problem List Problems Medical Problems: (1) Chronic renal failure Status: Acute Current Medications Current Medications Current Medications Hydromorphone HCl (Dilaudid) 2 mg 1X ONCE IV Last administered on 01/26/18at 22 :39; Start 01/26/18 at 22:00; Stop 01/26/18 at 22:01; Status DC Vancomycin HCl (Vanco Per Pharmacy) 1 each PRN DAILY PRN MC SEE COMMENTS Last administered on 01/27/18at 01:35; Start 01/26/18 at 22:45 Vancomycin HCl 1.75 gm/Sodium Chloride 500 ml @ 250 mls/hr 1X ONCE IV Last administered on 01/26/18at 23:53; Start 01/26/18 at 23:00; Stop 01/27/18 at 00:59 ; Status DC Ondansetron HCl (Zofran) 4 mg PRN Q8HRS PRN IV NAUSEA/VOMITING 1ST CHOICE; Start 01/26/18 at 23:15; Stop 01/27/18 at 23:14 Sodium Chloride 1,000 ml @ 75 mls/hr [id number] IV Last administered on at 00:39; Start 01/26/18 at 23:30; Stop 01/27/18 at 23:29 Pharmacy Consult ([facility] Screen By Rx) 1 each 1X ONCE MC ; Start 01/27/18 at 01:00; Stop 01/27/18 at 01:03; Status DC Influenza Virus Vaccine (Afluria Trivalent [id number] Syringe) 0.5 ml ONCE ONCE VAX IM ; Start 01/27/18 at 09:00; Stop 01/27/18 at 09:01; Status DC Vancomycin HCl (Vancomycin Random Level) 1 each 1X ONCE MC ; Start 01/28/18 at 05:00; Stop 01/28/18 at 05:01 Hydromorphone HCl (Dilaudid) 1 mg PRN Q3HRS PRN IV SEVERE PAIN Last administered on 01/27/18at 06:20; Start 01/27/18 at 03:30 Ondansetron HCl (Zofran) 4 mg PRN Q6HRS PRN IV NAUSEA/VOMITING; Start 01/27/18 at 10:45; Stop 01/27/18 at 18:00 Fentanyl Citrate (Fentanyl 2ml Vial) 25 mcg PRN Q5MIN PRN IV MILD PAIN; Start 01/27/18 at 10:45; Stop 01/27/18 at 18:00 Fentanyl Citrate (Fentanyl 2ml Vial) 50 mcg PRN Q5MIN PRN IV MODERATE TO SEVERE PAIN; Start 01/27/18 at 10:45; Stop 01/27/18 at 18:00 Morphine Sulfate (Morphine Sulfate) 1 mg PRN Q10MIN PRN IV SEVERE PAIN; Start 01/27/18 at 10:45; Stop 01/27/18 at 18:00 Ringer's Solution 1,000 ml @ 30 mls/hr Q24H IV ; Start 01/27/18 at 10:35; Stop 01/27/18 at 22:34 Lidocaine HCl (Xylocaine-Mpf 1% 2ml Vial) 2 ml 1X PRN PRN ID IV START; Start 01/27/18 at 10:45; Stop 01/27/18 at 18:00 Hydromorphone HCl (Dilaudid) 0.5 mg PRN Q10MIN PRN IV SEV PAIN, Second choice; Start 01/27/18 at 10:45; Stop 01/27/18 at 18:00 Prochlorperazine Edisylate (Compazine) 5 mg PACU PRN PRN IV NAUSEA, MRX1; Start 01/27/18 at 10:45; Stop 01/27/18 at 18:00 Amiodarone HCl (Cordarone) 200 mg DAILY PO ; Start 01/27/18 at 12:30 Aspirin (Anthony Aspirin) 325 mg DAILY PO ; Start 01/27/18 at 12:30 Carbamazepine (TEGretol) 200 mg BID PO ; Start 01/27/18 at 12:30 Carvedilol (Coreg) 12.5 mg BIDWMEALS PO ; Start 01/27/18 at 12:30 Vitamin B Complex/ Vitamin C (Melly-Shabbir) 1 tab DAILY PO ; Start 01/27/18 at 12: 30 Furosemide (Lasix) 80 mg BID92 PO ; Start 01/27/18 at 12:30 Insulin Glargine (Lantus) 22 units QHS SQ ; Start 01/27/18 at 21:00 Morphine Sulfate (Ms Contin) 15 mg BID PO ; Start 01/27/18 at 12:30 Nitroglycerin (Nitrostat) 0.4 mg PRN Q5MIN PRN SL CHEST PAIN; Start 01/27/18 at 12:00 Nystatin (Nystop) 1 susanna PRN BID PRN TP SKIN BREAKDOWN; Start 01/27/18 at 12:00 Tramadol HCl (Ultram) 50 mg PRN Q4HRS PRN PO HEADACHE; Start 01/27/18 at 12:00 Non-Formulary Medication (Albuterol Sulfate (Proventil Hfa Inhaler)) 2 puff BID PRN IH FOR ASTHMA; Start 01/27/18 at 12:00; Status UNV Atorvastatin Calcium (Lipitor) 80 mg QHS PO ; Start 01/27/18 at 21:00 Calcitriol (Rocaltrol) 0.25 mcg DAILY PO ; Start 01/27/18 at 12:30 Diltiazem HCl (Cardizem 24hr Cd) 120 mg DAILY PO ; Start 01/27/18 at 12:30 Non-Formulary Medication (Erythromycin Base (Erythromycin)) 250 mg BID PO ; Start 01/27/18 at 21:00; Status UNV Fenofibrate (Lofibra) 134 mg QHS PO ; Start 01/27/18 at 21:00 Non-Formulary Medication (Fluconazole (Diflucan)) 100 mg PRN PO ; Start at 12:00; Status UNV Lidocaine (Lidoderm) 1 patch PRN DAILY PRN TD PAIN; Start 01/27/18 at 09:00 Niacin (Slo-Niacin) 500 mg QHS PO ; Start 01/27/18 at 21:00 Ondansetron HCl (Zofran Odt) 4 mg PRN Q6HRS PRN PO NAUSEA/VOMITING; Start 01/27 at 12:15 Miscellaneous (Lidoderm Patch Removal) 1 ea QHS MC ; Start 01/27/18 at 21:00 Albuterol Sulfate (Ventolin Neb Soln) 2.5 mg PRN BID PRN NEB SHORTNESS OF BREATH; Start 01/27/18 at 12:30 Lidocaine HCl (Lidocaine 1% 50ml Vial) 50 ml 1X ONCE INJ ; Start 01/27/18 at 12 :45; Stop 01/27/18 at 12:46 Active Scripts Active Percocet 10-325 Mg Tablet (Oxycodone/Acetaminophen) 1 Each Tablet 1 Tab PO Q4HRS Brilinta (Ticagrelor) 90 Mg Tablet 90 Mg PO BID 30 Days Morphine Sulfate Er (Morphine Sulfate) 15 Mg Tablet.er 15 Mg PO BID Reported Lidocaine 1 Each Adh..patch 1 Each TP PRN DAILY PRN Calcitriol 0.25 Mcg Capsule 1 Cap PO DAILY Tegretol (Carbamazepine) 200 Mg Tablet 1 Tab PO BID Tramadol Hcl 50 Mg Tablet 50 Mg PO Q4HRS PRN Lantus Solostar (Insulin Glargine,Hum.rec.anlog) 100 Unit/1 Ml Insuln.pen 22 Unit SQ QHS Diflucan (Fluconazole) 100 Mg Tablet 100 Mg PO PRN Carvedilol 3.125 Mg Tablet 12.5 Mg PO BID Erythromycin (Erythromycin Base) 250 Mg Capsule.dr 250 Mg PO BID Cardizem Cd (Diltiazem Hcl) 180 Mg Cap.er.24h 120 Mg PO DAILY Amiodarone Hcl 200 Mg Tablet 1 Tab PO DAILY Nystatin 15 Gm Powder 1 Susanna TP PRN BID PRN Proventil Hfa Inhaler (Albuterol Sulfate) 6.7 Gm Hfa.aer.ad 2 Puff IH BID PRN Zofran (Ondansetron Hcl) 4 Mg Tablet 4 Mg PO Q6-8HRS PRN Nephro-Shabbir Tablet (Folic Acid/Vitamin B Comp W-C) 0.8 Mg Tablet 1 Tab PO DAILY Tricor (Fenofibrate Nanocrystallized) 145 Mg Tablet 1 Tab PO HS Lipitor (Atorvastatin Calcium) 80 Mg Tablet 80 Mg PO HS Niacin 500 Mg Tablet 500 Mg PO HS Novolog (Insulin Aspart) 100 Unit/1 Ml Cartridge 0 SQ TIDAC sliding scale Aspirin 325 Mg Tablet 325 Mg PO DAILY Furosemide 80 Mg Tablet 80 Mg PO BID Docusate Sodium 100 Mg Capsule 1 Cap PO PRN PRN Nitrostat (Nitroglycerin) 0.4 Mg Tab.subl 0.4 Mg SL PRN Q5MIN PRN Take as needed for chest pain Allergies Allergies: Coded Allergies: Sulfa (Sulfonamide Antibiotics) (Verified Allergy, Severe, Anaphylaxis, 04/13) meropenem (Verified Allergy, Intermediate, Rash, 01/06/18) Tolerates ancef piperacillin (Verified Allergy, Intermediate, Rash, 01/06/18) Tolerates ancef strawberry (Verified Allergy, Intermediate, 01/06/18) tazobactam (Verified Allergy, Intermediate, 01/06/18) cefazolin (Verified Adverse Reaction, Intermediate, Itching, 01/06/18) Causes Vomiting fentanyl (Verified Adverse Reaction, Intermediate, Nausea and Vomiting, 04/13) Vomiting ROS Review of System As per HPI Physical Exam Physical Exam General: No acute distress HEENT:OM moist Lungs: Clear to auscultation, Non labored Heart: Regular rate, Normal S1, Normal S2 Abdomen: Soft, No tenderness, PD catheter + Extremities: Lt BKA, Rt S/P Debridement and Muscle flap Changes of CVI+ AV Shunt Rt arm Skin: (dehiscence of the proximal right common femoral incision and vein harvest site with lower extremity edema and mild cellulitis Neuro: Grossly Normal MUSCULOSKELETAL: No joint tenderness, Full range of motion without pain Gu- no ahrtley Vital Signs Vital Signs Date Time Temp Pulse Resp B/P (MAP) Pulse Ox O2 Delivery O2 Flow Rate FiO2 01/27/18 12:27 98.4 91 16 149/65 97 Room Air 98.4 Assessment & Plan ESRD -On PD Was on HD switched to PD, gets Intermittent HD if Indicated Last night Unable to do PD due to [facility] error(Problems with Fill) Pt reports does well with CAPD and Not CCPD HD Today- seen on HD tolerating well , continue as Ordered Hyperkalemia - HD Today Right femoral surgical site infection- s/p operative debridement with muscle flap. 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 Laboratory Tests Test 01/26/18 21:52 01/27/18 05:50 01/27/18 07:43 01/27/18 11:13 White Blood Count 14.8 x10^3/uL (4.0-11.0) 12.0 x10^3/uL (4.0-11.0) Red Blood Count 2.85 x10^6/uL (3.50-5.40) 2.41 x10^6/uL (3.50-5.40) Hemoglobin 9.0 g/dL (12.0-15.5) 7.8 g/dL (12.0-15.5) Hematocrit 27.3 % (36.0-47.0) 23.2 % (36.0-47.0) Mean Corpuscular Volume 96 fL (79-100) 96 fL (79-100) Mean Corpuscular Hemoglobin 32 pg (25-35) 32 pg (25-35) Mean Corpuscular Hemoglobin Concent 33 g/dL (31-37) 34 g/dL (31-37) Red Cell Distribution Width 19.4 % (11.5-14.5) 19.7 % (11.5-14.5) Platelet Count 411 x10^3/uL (140-400) 363 x10^3/uL (140-400) Neutrophils (%) (Auto) 89 % (31-73) 82 % (31-73) Lymphocytes (%) (Auto) 4 % (24-48) 9 % (24-48) Monocytes (%) (Auto) 6 % (0-9) 7 % (0-9) Eosinophils (%) (Auto) 1 % (0-3) 1 % (0-3) Basophils (%) (Auto) 0 % (0-3) 0 % (0-3) Neutrophils # (Auto) 13.1 x10^3uL (1.8-7.7) 9.9 x10^3uL (1.8-7.7) Lymphocytes # (Auto) 0.6 x10^3/uL (1.0-4.8) 1.1 x10^3/uL (1.0-4.8) Monocytes # (Auto) 0.9 x10^3/uL (0.0-1.1) 0.9 x10^3/uL (0.0-1.1) Eosinophils # (Auto) 0.1 x10^3/uL (0.0-0.7) 0.1 x10^3/uL (0.0-0.7) Basophils # (Auto) 0.0 x10^3/uL (0.0-0.2) 0.0 x10^3/uL (0.0-0.2) Segmented Neutrophils % 86 % (35-66) Lymphocytes % 6 % (24-48) Monocytes % 8 % (0-10) Toxic Vacuolation Slight Platelet Estimate Increased (ADEQUATE) Giant Platelets Occ Polychromasia Slight Anisocytosis Slight Sodium Level 134 mmol/L (136-145) 135 mmol/L (136-145) Potassium Level 4.8 mmol/L (3.5-5.1) 4.9 mmol/L (3.5-5.1) Chloride Level 92 mmol/L (98-107) 96 mmol/L (98-107) Carbon Dioxide Level 28 mmol/L (21-32) 28 mmol/L (21-32) Anion Gap 14 (6-14) 11 (6-14) Blood Urea Nitrogen 64 mg/dL (7-20) 65 mg/dL (7-20) Creatinine 7.4 mg/dL (0.6-1.0) 7.6 mg/dL (0.6-1.0) Estimated GFR (Cockcroft-Gault) 5.8 5.6 BUN/Creatinine Ratio 9 (6-20) 9 (6-20) Glucose Level 196 mg/dL (70-99) 143 mg/dL (70-99) Lactic Acid Level 1.0 mmol/L (0.4-2.0) Calcium Level 8.8 mg/dL (8.5-10.1) 8.5 mg/dL (8.5-10.1) Total Bilirubin 0.5 mg/dL (0.2-1.0) 0.5 mg/dL (0.2-1.0) Aspartate Amino Transf (AST/SGOT) 14 U/L (15-37) 10 U/L (15-37) Alanine Aminotransferase (ALT/SGPT) 9 U/L (14-59) 8 U/L (14-59) Alkaline Phosphatase 138 U/L (46-116) 109 U/L (46-116) Total Protein 6.4 g/dL (6.4-8.2) 5.4 g/dL (6.4-8.2) Albumin 2.0 g/dL (3.4-5.0) 1.6 g/dL (3.4-5.0) Albumin/Globulin Ratio 0.5 (1.0-1.7) 0.4 (1.0-1.7) Glucose (Fingerstick) 106 mg/dL (70-99) 99 mg/dL (70-99) Laboratory Tests Test 01/26/18 21:52 01/27/18 05:50 01/27/18 07:43 01/27/18 11:13 White Blood Count 14.8 x10^3/uL (4.0-11.0) 12.0 x10^3/uL (4.0-11.0) Red Blood Count 2.85 x10^6/uL (3.50-5.40) 2.41 x10^6/uL (3.50-5.40) Hemoglobin 9.0 g/dL (12.0-15.5) 7.8 g/dL (12.0-15.5) Hematocrit 27.3 % (36.0-47.0) 23.2 % (36.0-47.0) Mean Corpuscular Volume 96 fL (79-100) 96 fL (79-100) Mean Corpuscular Hemoglobin 32 pg (25-35) 32 pg (25-35) Mean Corpuscular Hemoglobin Concent 33 g/dL (31-37) 34 g/dL (31-37) Red Cell Distribution Width 19.4 % (11.5-14.5) 19.7 % (11.5-14.5) Platelet Count 411 x10^3/uL (140-400) 363 x10^3/uL (140-400) Neutrophils (%) (Auto) 89 % (31-73) 82 % (31-73) Lymphocytes (%) (Auto) 4 % (24-48) 9 % (24-48) Monocytes (%) (Auto) 6 % (0-9) 7 % (0-9) Eosinophils (%) (Auto) 1 % (0-3) 1 % (0-3) Basophils (%) (Auto) 0 % (0-3) 0 % (0-3) Neutrophils # (Auto) 13.1 x10^3uL (1.8-7.7) 9.9 x10^3uL (1.8-7.7) Lymphocytes # (Auto) 0.6 x10^3/uL (1.0-4.8) 1.1 x10^3/uL (1.0-4.8) Monocytes # (Auto) 0.9 x10^3/uL (0.0-1.1) 0.9 x10^3/uL (0.0-1.1) Eosinophils # (Auto) 0.1 x10^3/uL (0.0-0.7) 0.1 x10^3/uL (0.0-0.7) Basophils # (Auto) 0.0 x10^3/uL (0.0-0.2) 0.0 x10^3/uL (0.0-0.2) Segmented Neutrophils % 86 % (35-66) Lymphocytes % 6 % (24-48) Monocytes % 8 % (0-10) Toxic Vacuolation Slight Platelet Estimate Increased (ADEQUATE) Giant Platelets Occ Polychromasia Slight Anisocytosis Slight Sodium Level 134 mmol/L (136-145) 135 mmol/L (136-145) Potassium Level 4.8 mmol/L (3.5-5.1) 4.9 mmol/L (3.5-5.1) Chloride Level 92 mmol/L (98-107) 96 mmol/L (98-107) Carbon Dioxide Level 28 mmol/L (21-32) 28 mmol/L (21-32) Anion Gap 14 (6-14) 11 (6-14) Blood Urea Nitrogen 64 mg/dL (7-20) 65 mg/dL (7-20) Creatinine 7.4 mg/dL (0.6-1.0) 7.6 mg/dL (0.6-1.0) Estimated GFR (Cockcroft-Gault) 5.8 5.6 BUN/Creatinine Ratio 9 (6-20) 9 (6-20) Glucose Level 196 mg/dL (70-99) 143 mg/dL (70-99) Lactic Acid Level 1.0 mmol/L (0.4-2.0) Calcium Level 8.8 mg/dL (8.5-10.1) 8.5 mg/dL (8.5-10.1) Total Bilirubin 0.5 mg/dL (0.2-1.0) 0.5 mg/dL (0.2-1.0) Aspartate Amino Transf (AST/SGOT) 14 U/L (15-37) 10 U/L (15-37) Alanine Aminotransferase (ALT/SGPT) 9 U/L (14-59) 8 U/L (14-59) Alkaline Phosphatase 138 U/L (46-116) 109 U/L (46-116) Total Protein 6.4 g/dL (6.4-8.2) 5.4 g/dL (6.4-8.2) Albumin 2.0 g/dL (3.4-5.0) 1.6 g/dL (3.4-5.0) Albumin/Globulin Ratio 0.5 (1.0-1.7) 0.4 (1.0-1.7) Glucose (Fingerstick) 106 mg/dL (70-99) 99 mg/dL (70-99) Review All relevant outside records, renal labs, imaging studies, telemetry/EKG's were reviewed. HEMANT SCHAEFER MD Jan 27, 2018 12:43
[2018-01-27] MEDS ORDERED: LIDOCAINE 1% Multi-Dose 50 ML VIAL. INJ ONE (12:45)
[2018-01-27] MEDS ORDERED: SEVOFLURANE 31 TO 60 MINUTES. IH ONE (13:11)
[2018-01-27] MEDS ORDERED: ONDANSETRON PF 4 MG/2 ML VIAL. ONE (13:11)
[2018-01-27] MEDS ORDERED: DEXAMETHASONE SOD PHOS 20 MG/5 ML VIAL. ONE (13:11)
[2018-01-27] MEDS ORDERED: BACITRACIN IR ONE (13:15)
[2018-01-27] MEDS ORDERED: SODIUM CHLORIDE IRRIGATION IR ONE (13:15)
--- NOTE | 2018-01-27 15:17 | PDOC ---
BRIEF OPERATIVE NOTE Date: Jan 27, 2018 Pre-Op Diagnosis Right groin infected incisional wound Post-Op Diagnosis Same Procedure Performed Right groin wound debridement with sartorius muscle flap with wound vac placement Surgeon Mariah Reina MD Machine Printer VENITA Zamora Anesthesia Type: General Blood Loss 50mL Specimens Obtained Right groin wound anaerobic/aerobic cultures Findings wound measurements: 32 cm length x 8 cm width x 4 cm depth Complications None Operative Note See detailed op note HONG OKEEFE Jan 27, 2018 15:17
[2018-01-27] MEDS ORDERED: DEXTROSE 5% IV ONE (16:00)
[2018-01-27] MEDS ORDERED: GENTAMICIN SULFATE IV ONE (16:00)
[2018-01-27] MEDS: MORPHINE SULFATE 2 MG/ML VIAL. IV PRN ×2 (16:06→16:28)
--- NOTE | 2018-01-27 16:46 | OP ---
DATE OF SURGERY: 01/27/2018 SURGEON: Mariah Reina M.D. INFORMATION MANAGEMENT OFFICER: VENITA Zamora. ANESTHESIA USED: General anesthesia. PREOPERATIVE DIAGNOSES: Recent right femoral to below knee popliteal artery bypass with great saphenous vein with a severely infected right groin and upper thigh incisional wound with necrotic gangrenous tissue and dehiscence of the incision. POSTOPERATIVE DIAGNOSES: Severe infection with necrosis of the groin and upper thigh incision with infection down to the bypass graft in the groin and upper thigh. OPERATION PERFORMED: 1. Sharp wide excisional debridement of the right groin and upper thigh wound measuring a total of 32 cm in length x 8 cm in width x 4 cm in depth after debridement was finished. 2. Right sartorius muscle flap, which was rotated medially and wrapped around the great saphenous vein exposed bypass. 3. Wound VAC placement to the right groin large open wound. INDICATION: The patient is a 52-year-old female with history of severe peripheral arterial disease, who underwent a right femoral to below knee popliteal artery bypass with great saphenous vein in the recent past for nonhealing wounds on her foot. She has developed a severe infection, dehiscence of her right groin and upper thigh incision. There is foul odor, purulent drainage and dehiscence of the wound. I recommended a wide debridement of the groin and upper thigh wound with an open wound and possible need for muscle flap if the bypass is exposed. The risks were explained to the patient including the risks of bleeding, infection, further need for debridements or surgery in her groin in the future and possible bypass graft failure. DETAILS OF THE OPERATION: The patient was brought to the operating room and placed on table in supine position. She received general anesthesia monitored throughout the case by the anesthesiologist. Her right groin and right leg circumferentially was prepped and draped by normal sterile fashion. She had copious amounts of gangrene around her incision in the groin and upper thigh. I sharply incised around the alberto and gangrenous skin and down to the subcutaneous tissue and excised out the gangrenous incision itself throughout the groin and upper thigh. We continued dissection. There was copious amount of necrotic subcutaneous tissue, which was excised throughout the wound bed and pockets of purulent abscess cavities, which were cultured. The whole groin wound was open and it was down to expose vein bypass graft at the base of the wound. The bypass graft was seen entering the region of the common femoral artery and then, it was exposed down to the upper mid thigh region. I felt that there would be no way to cover this without a muscle flap because of the large gap in her skin with the open wound and unhealthy subcutaneous tissue. I excised all the necrotic subcutaneous tissue throughout the wound bed and skeletonized the vein bypass to get all the necrotic tissue around it off. It had a strong palpable pulse within it. I then did a sartorius muscle flap. I made a longitudinal incision in the lateral thigh, incised through the fascia down to the sartorius muscle. The sartorius muscle was dissected out laterally and I continued dissection proximally up to the bony attachment. I was able to get around the muscle and I used electrocautery to Bovie the sartorius muscle off the bony attachment in the proximal groin. I then mobilized it medially. I freed the lateral attachment, so that it could be rolled medial. I continued dissection to the upper thigh area, so that the muscle was freed all the way down to the distal aspect of the exposed vein bypass graft. Medially, I freed the subcutaneous tissue level, so we were able to roll the sartorius muscle over the vein bypass graft and tack it medially to healthy subcutaneous tissue, so it was completely wrapped and covered. Prior to covering it, I did irrigate the open wound with copious amounts of antibiotic solution using the Pulsavac. Necrotic tissue had been excised all the way through the medial mid thigh at the vein harvest site and it was healthy. We Pulsavac this area as well. After irrigation, we rolled the sartorius muscle flap medially over the saphenous vein bypass and common femoral vessels. I tacked it medially with interrupted Monocryl 2-0 sutures to the healthy medial subcutaneous tissue along the length of the muscle flap. It completely covered the saphenous vein bypass graft and common femoral vessels. The muscle was pink and healthy after the electrocautery. The open wound, there is no further significant necrotic tissue within the wound. I cut a wound VAC sponge to size. Measurements are listed above and I sealed it and placed it to suction. At the end of the case, she had a good dopplerable signal in her foot with a patent bypass graft. She tolerated the surgery well with no immediate complications. MARIAH REINA MD DR: Kylah JOB#: [id number] / [id number]
[2018-01-27] MEDS: PATCH REMOVAL. MC SCH (21:00)
[2018-01-27] MEDS: LACTOBACILLUS RHAMNOSUS GG 1 CAPSULE. PO SCH (21:12)
[2018-01-27] MEDS: FENOFIBRATE,MICRONIZED 134 MG CAPSULE PO SCH (21:12)
[2018-01-27] MEDS: ATORVASTATIN CALCIUM 40 MG TABLET. PO SCH (21:12)
[2018-01-27] MEDS: NIACIN ER 500 MG TABLET.ER PO SCH (21:12)
[2018-01-27] MEDS: ERYTHROMYCIN BASE 250 MG TABLET PO SCH (21:12)
[2018-01-27] MEDS: INSULIN GLARGINE 300 UNITS/3 ML INSULN.PEN. SQ SCH (21:20)
[2018-01-27] MEDS: ALBUTEROL SULFATE 2.5 MG/3 ML NEBU. NEB PRN (21:59)
[2018-01-28 03:00] VITALS: BP 178/88
[2018-01-28] MEDS ORDERED: VANCOMYCIN RANDOM LEVEL. MC ONE (05:00)
[2018-01-28] MEDS: HYDROmorphone 2 MG/ML VIAL IV PRN ×5 (05:20→22:31)
[2018-01-28 07:00] VITALS: BP 182/72
[2018-01-28] MEDS ORDERED: CLOPIDOGREL BISULFATE 75 MG TABLET PO SCH (08:00)
--- NOTE | 2018-01-28 08:13 | PDOC ---
PROGRESS NOTES Chief Complaint Chief Complaint Right groin wound infection Sepsis from Right LE cellulitis ESRD on PD History of Present Illness History of Present Illness Ms. Rosenbaum, is a 52 year old female admit with redness and leg pain acute pain to right leg with swelling. She was just discharged from the hospital recently after being admitted for cellulitis and hypocalcemia, is finishing her keflex at home and wound care as well. Culture was obtained in ED and she was noted tachycardic in the 110s with a WBC of 14.8 initially. To OR on 01/27/18 for debridement and wound vac placement. Having some pain. Pt states she did not do well with peritoneal dialysis machine last night. Seen and examined while on HD today. Patient denies having chest pain or palpitations. Currently she reports her pain is a 6 out of 10 on the pain scale, she has placed on ABD pad in her groin to prevent abrasions with the wound vac She is still on 4L NCO2, but feels she is breathing better while being dialyzed today. HTN still difficult to control despite labetalol, will add prn oral hydralazine as well and glucose up today. She is worried about allergic reaction to antibiotics, will add benadryl A/P: Right groin wound - cultures obtained, antibiotics, to OR. Dressing changes per surgery Hypoxia - likely 2/2 fluid overload with poor PD session last night. Wean O2 as tolerated RLE cellulitis - swelling looks a bit improved, cont antibiotics cefepime and flagyl. Wound vac intact ESRD on PD - consult nephrology, she does use HD occasionally, has been using 4 bags during day as she has trouble at night Diabetes with Hyperglycemia - will place on sliding scale insulin CAD with HTN - managed on meds, will add prn labetalol and hydralazine Vitals Vitals Vital Signs Date Time Temp Pulse Resp B/P (MAP) Pulse Ox O2 Delivery O2 Flow Rate FiO2 01/28/18 07:00 97.9 89 19 182/72 (108) 95 Room Air 97.9 01/27/18 22:02 3.0 Physical Exam General: Alert, Oriented X3, Cooperative Heart: Regular rate, Normal S1, Normal S2 Lungs: Clear, Wheezing Abdomen: Normal bowel sounds, Soft, No tenderness, Other (PD cath clean dry and intact) Extremities: Other (RLE red along staple line with swollen red foot and right groin open wound, foul smelling. LLE BKA clean) Skin: Other (dehiscence of the proximal right common femoral incision and vein harvest site with lower extremity edema and mild cellulitis) Labs LABS Laboratory Tests Test 01/27/18 11:13 01/27/18 15:55 01/27/18 20:13 01/28/18 05:10 Glucose (Fingerstick) 99 mg/dL (70-99) 155 mg/dL (70-99) 243 mg/dL (70-99) Random Vancomycin Level 25.3 mcg/mL Test 01/28/18 07:46 Glucose (Fingerstick) 225 mg/dL (70-99) Assessment and Plan Assessmemt and Plan Problems Medical Problems: (1) Chronic renal failure Status: Acute Comment Review of Relevant I have reviewed the following items bert (where applicable) has been applied. Labs Laboratory Tests Test 01/26/18 21:52 01/27/18 05:50 01/27/18 07:43 01/27/18 11:13 White Blood Count 14.8 x10^3/uL (4.0-11.0) 12.0 x10^3/uL (4.0-11.0) Red Blood Count 2.85 x10^6/uL (3.50-5.40) 2.41 x10^6/uL (3.50-5.40) Hemoglobin 9.0 g/dL (12.0-15.5) 7.8 g/dL (12.0-15.5) Hematocrit 27.3 % (36.0-47.0) 23.2 % (36.0-47.0) Mean Corpuscular Volume 96 fL (79-100) 96 fL (79-100) Mean Corpuscular Hemoglobin 32 pg (25-35) 32 pg (25-35) Mean Corpuscular Hemoglobin Concent 33 g/dL (31-37) 34 g/dL (31-37) Red Cell Distribution Width 19.4 % (11.5-14.5) 19.7 % (11.5-14.5) Platelet Count 411 x10^3/uL (140-400) 363 x10^3/uL (140-400) Neutrophils (%) (Auto) 89 % (31-73) 82 % (31-73) Lymphocytes (%) (Auto) 4 % (24-48) 9 % (24-48) Monocytes (%) (Auto) 6 % (0-9) 7 % (0-9) Eosinophils (%) (Auto) 1 % (0-3) 1 % (0-3) Basophils (%) (Auto) 0 % (0-3) 0 % (0-3) Neutrophils # (Auto) 13.1 x10^3uL (1.8-7.7) 9.9 x10^3uL (1.8-7.7) Lymphocytes # (Auto) 0.6 x10^3/uL (1.0-4.8) 1.1 x10^3/uL (1.0-4.8) Monocytes # (Auto) 0.9 x10^3/uL (0.0-1.1) 0.9 x10^3/uL (0.0-1.1) Eosinophils # (Auto) 0.1 x10^3/uL (0.0-0.7) 0.1 x10^3/uL (0.0-0.7) Basophils # (Auto) 0.0 x10^3/uL (0.0-0.2) 0.0 x10^3/uL (0.0-0.2) Segmented Neutrophils % 86 % (35-66) Lymphocytes % 6 % (24-48) Monocytes % 8 % (0-10) Toxic Vacuolation Slight Platelet Estimate Increased (ADEQUATE) Giant Platelets Occ Polychromasia Slight Anisocytosis Slight Sodium Level 134 mmol/L (136-145) 135 mmol/L (136-145) Potassium Level 4.8 mmol/L (3.5-5.1) 4.9 mmol/L (3.5-5.1) Chloride Level 92 mmol/L (98-107) 96 mmol/L (98-107) Carbon Dioxide Level 28 mmol/L (21-32) 28 mmol/L (21-32) Anion Gap 14 (6-14) 11 (6-14) Blood Urea Nitrogen 64 mg/dL (7-20) 65 mg/dL (7-20) Creatinine 7.4 mg/dL (0.6-1.0) 7.6 mg/dL (0.6-1.0) Estimated GFR (Cockcroft-Gault) 5.8 5.6 BUN/Creatinine Ratio 9 (6-20) 9 (6-20) Glucose Level 196 mg/dL (70-99) 143 mg/dL (70-99) Lactic Acid Level 1.0 mmol/L (0.4-2.0) Calcium Level 8.8 mg/dL (8.5-10.1) 8.5 mg/dL (8.5-10.1) Total Bilirubin 0.5 mg/dL (0.2-1.0) 0.5 mg/dL (0.2-1.0) Aspartate Amino Transf (AST/SGOT) 14 U/L (15-37) 10 U/L (15-37) Alanine Aminotransferase (ALT/SGPT) 9 U/L (14-59) 8 U/L (14-59) Alkaline Phosphatase 138 U/L (46-116) 109 U/L (46-116) Total Protein 6.4 g/dL (6.4-8.2) 5.4 g/dL (6.4-8.2) Albumin 2.0 g/dL (3.4-5.0) 1.6 g/dL (3.4-5.0) Albumin/Globulin Ratio 0.5 (1.0-1.7) 0.4 (1.0-1.7) Glucose (Fingerstick) 106 mg/dL (70-99) 99 mg/dL (70-99) Test 01/27/18 15:55 01/27/18 20:13 01/28/18 05:10 01/28/18 07:46 Glucose (Fingerstick) 155 mg/dL (70-99) 243 mg/dL (70-99) 225 mg/dL (70-99) Random Vancomycin Level 25.3 mcg/mL Laboratory Tests Test 01/27/18 11:13 01/27/18 15:55 01/27/18 20:13 01/28/18 05:10 Glucose (Fingerstick) 99 mg/dL (70-99) 155 mg/dL (70-99) 243 mg/dL (70-99) Random Vancomycin Level 25.3 mcg/mL Test 01/28/18 07:46 Glucose (Fingerstick) 225 mg/dL (70-99) Microbiology 01/26/18 Blood Culture - Preliminary, Resulted NO GROWTH AFTER 1 DAY 01/26/18 Anaerobic/Aerobic Culture, Resulted Pending 01/26/18 Anaerobic Culture Result 1 (ROSALIND), Resulted Pending 01/26/18 Aerobic Culture, Resulted Pending 01/26/18 Aerobic Culture Result 1 (ROSALIND), Resulted Pending 01/26/18 Gram Stain - Final, Resulted 01/26/18 Gram Stain Result 1 (ROSALIND) - Final, Resulted 01/26/18 Gram Stain Result 2 (ROSALIND) - Final, Resulted 01/26/18 Gram Stain Result 3 (ROSALIND) - Final, Resulted Medications Current Medications Hydromorphone HCl (Dilaudid) 2 mg 1X ONCE IV Last administered on 01/26/18at 22 :39; Start 01/26/18 at 22:00; Stop 01/26/18 at 22:01; Status DC Vancomycin HCl (Vanco Per Pharmacy) 1 each PRN DAILY PRN MC SEE COMMENTS Last administered on 01/27/18at 17:17; Start 01/26/18 at 22:45 Vancomycin HCl 1.75 gm/Sodium Chloride 500 ml @ 250 mls/hr 1X ONCE IV Last administered on 01/26/18at 23:53; Start 01/26/18 at 23:00; Stop 01/27/18 at 00:59 ; Status DC Ondansetron HCl (Zofran) 4 mg PRN Q8HRS PRN IV NAUSEA/VOMITING 1ST CHOICE; Start 01/26/18 at 23:15; Stop 01/27/18 at 23:14; Status DC Sodium Chloride 1,000 ml @ 75 mls/hr [id number] IV Last administered on at 00:39; Start 01/26/18 at 23:30; Stop 01/27/18 at 23:29; Status DC Pharmacy Consult (C.diff Med Screen By Rx) 1 each 1X ONCE MC ; Start 01/27/18 at 01:00; Stop 01/27/18 at 01:01; Status Cancel Influenza Virus Vaccine (Afluria Trivalent [id number] Syringe) 0.5 ml ONCE ONCE VAX IM ; Start 01/27/18 at 09:00; Stop 01/27/18 at 09:01; Status DC Vancomycin HCl (Vancomycin Random Level) 1 each 1X ONCE MC Last administered on 01/28/18at 05:00; Start 01/28/18 at 05:00; Stop 01/28/18 at 05:01; Status DC Hydromorphone HCl (Dilaudid) 1 mg PRN Q3HRS PRN IV SEVERE PAIN Last administered on 01/28/18at 05:20; Start 01/27/18 at 03:30 Ondansetron HCl (Zofran) 4 mg PRN Q6HRS PRN IV NAUSEA/VOMITING; Start 01/27/18 at 10:45; Stop 01/27/18 at 18:00; Status DC Fentanyl Citrate (Fentanyl 2ml Vial) 25 mcg PRN Q5MIN PRN IV MILD PAIN; Start 01/27/18 at 10:45; Stop 01/27/18 at 18:00; Status DC Fentanyl Citrate (Fentanyl 2ml Vial) 50 mcg PRN Q5MIN PRN IV MODERATE TO SEVERE PAIN; Start 01/27/18 at 10:45; Stop 01/27/18 at 18:00; Status DC Morphine Sulfate (Morphine Sulfate) 1 mg PRN Q10MIN PRN IV SEVERE PAIN Last administered on 01/27/18at 16:28; Start 01/27/18 at 10:45; Stop 01/27/18 at 18:00 ; Status DC Ringer's Solution 1,000 ml @ 30 mls/hr Q24H IV Last administered on 01/27/18at 10:35; Start 01/27/18 at 10:35; Stop 01/27/18 at 19:36; Status DC Lidocaine HCl (Xylocaine-Mpf 1% 2ml Vial) 2 ml 1X PRN PRN ID IV START; Start 01/27/18 at 10:45; Stop 01/27/18 at 18:00; Status DC Hydromorphone HCl (Dilaudid) 0.5 mg PRN Q10MIN PRN IV SEV PAIN, Second choice Last administered on 01/27/18at 15:59; Start 01/27/18 at 10:45; Stop 01/27/18 at 18:00; Status DC Prochlorperazine Edisylate (Compazine) 5 mg PACU PRN PRN IV NAUSEA, MRX1; Start 01/27/18 at 10:45; Stop 01/27/18 at 18:00; Status DC Amiodarone HCl (Cordarone) 200 mg DAILY PO ; Start 01/27/18 at 12:30 Aspirin (Anthony Aspirin) 325 mg DAILY PO ; Start 01/27/18 at 12:30 Carbamazepine (TEGretol) 200 mg BID PO Last administered on 01/27/18at 21:12; Start 01/27/18 at 12:30 Carvedilol (Coreg) 12.5 mg BIDWMEALS PO ; Start 01/27/18 at 12:30 Vitamin B Complex/ Vitamin C (Melly-Shabbir) 1 tab DAILY PO ; Start 01/27/18 at 12: 30 Furosemide (Lasix) 80 mg BID92 PO ; Start 01/27/18 at 12:30 Insulin Glargine (Lantus) 22 units QHS SQ Last administered on 01/27/18at 21:20 ; Start 01/27/18 at 21:00 Morphine Sulfate (Ms Contin) 15 mg BID PO Last administered on 01/27/18at 21:12 ; Start 01/27/18 at 12:30 Nitroglycerin (Nitrostat) 0.4 mg PRN Q5MIN PRN SL CHEST PAIN; Start 01/27/18 at 12:00 Nystatin (Nystop) 1 susanna PRN BID PRN TP SKIN BREAKDOWN; Start 01/27/18 at 12:00 Tramadol HCl (Ultram) 50 mg PRN Q4HRS PRN PO HEADACHE; Start 01/27/18 at 12:00 Non-Formulary Medication (Albuterol Sulfate (Proventil Hfa Inhaler)) 2 puff BID PRN IH FOR ASTHMA; Start 01/27/18 at 12:00; Status UNV Atorvastatin Calcium (Lipitor) 80 mg QHS PO Last administered on 01/27/18at 21: 12; Start 01/27/18 at 21:00 Calcitriol (Rocaltrol) 0.25 mcg DAILY PO ; Start 01/27/18 at 12:30 Diltiazem HCl (Cardizem 24hr Cd) 120 mg DAILY PO ; Start 01/27/18 at 12:30 Erythromycin (E-Mycin) 250 mg BID PO Last administered on 01/27/18at 21:12; Start 01/27/18 at 21:00 Fenofibrate (Lofibra) 134 mg QHS PO Last administered on 01/27/18at 21:12; Start 01/27/18 at 21:00 Non-Formulary Medication (Fluconazole (Diflucan)) 100 mg PRN PO ; Start at 12:00; Status UNV Lidocaine (Lidoderm) 1 patch PRN DAILY PRN TD PAIN; Start 01/27/18 at 09:00 Niacin (Slo-Niacin) 500 mg QHS PO Last administered on 01/27/18at 21:12; Start 01/27/18 at 21:00 Ondansetron HCl (Zofran Odt) 4 mg PRN Q6HRS PRN PO NAUSEA/VOMITING; Start 01/27 at 12:15 Miscellaneous (Lidoderm Patch Removal) 1 ea QHS MC ; Start 01/27/18 at 21:00 Albuterol Sulfate (Ventolin Neb Soln) 2.5 mg PRN BID PRN NEB SHORTNESS OF BREATH Last administered on 01/27/18at 21:59; Start 01/27/18 at 12:30 Lidocaine HCl (Lidocaine 1% 50ml Vial) 50 ml 1X ONCE INJ Last administered on 01/27/18at 14:06; Start 01/27/18 at 12:45; Stop 01/27/18 at 12:46; Status DC Hydromorphone HCl (Dilaudid) 2 mg STK-MED ONCE .ROUTE ; Start 01/27/18 at 12:36 ; Stop 01/27/18 at 12:38; Status DC Propofol 20 ml @ As Directed STK-MED ONCE IV ; Start 01/27/18 at 12:38; Stop at 12:39; Status DC Bacitracin 86898 unit/Sodium Chloride 3,000 ml @ 0 mls/hr 1X ONCE IR ; Start 01/27/18 at 13:15; Stop 01/27/18 at 13:16; Status Cancel Dexamethasone Sodium Phosphate (Decadron) 20 mg STK-MED ONCE .ROUTE ; Start 01/27/18 at 13:11; Stop 01/27/18 at 13:12; Status DC Ondansetron HCl (Zofran) 4 mg STK-MED ONCE .ROUTE ; Start 01/27/18 at 13:11; Stop 01/27/18 at 13:12; Status DC Sevoflurane (Ultane) 30 ml STK-MED ONCE IH ; Start 01/27/18 at 13:11; Stop 01/27 at 13:12; Status DC Bacitracin (Bacitracin) 50,000 unit STK-MED ONCE IRR Last administered on at 13:58; Start 01/27/18 at 12:14; Stop 01/27/18 at 13:16; Status DC Clopidogrel Bisulfate (Plavix) 75 mg DAILYWBKFT PO ; Start 01/28/18 at 08:00 Hydromorphone HCl (Dilaudid) 2 mg STK-MED ONCE .ROUTE ; Start 01/27/18 at 15:38 ; Stop 01/27/18 at 15:40; Status DC Gentamicin Sulfate 235 mg/ Dextrose 105.875 ml @ 105.875 mls/hr 1X ONCE IV Last administered on 01/27/18at 19:56; Start 01/27/18 at 16:00; Stop 01/27/18 at 16:59; Status DC Lactobacillus Rhamnosus (Culturelle) 1 cap BID PO Last administered on at 21:12; Start 01/27/18 at 21:00 Active Scripts Active Percocet 10-325 Mg Tablet (Oxycodone/Acetaminophen) 1 Each Tablet 1 Tab PO Q4HRS Brilinta (Ticagrelor) 90 Mg Tablet 90 Mg PO BID 30 Days Morphine Sulfate Er (Morphine Sulfate) 15 Mg Tablet.er 15 Mg PO BID Reported Lidocaine 1 Each Adh..patch 1 Each TP PRN DAILY PRN Calcitriol 0.25 Mcg Capsule 1 Cap PO DAILY Tegretol (Carbamazepine) 200 Mg Tablet 1 Tab PO BID Tramadol Hcl 50 Mg Tablet 50 Mg PO Q4HRS PRN Lantus Solostar (Insulin Glargine,Hum.rec.anlog) 100 Unit/1 Ml Insuln.pen 22 Unit SQ QHS Diflucan (Fluconazole) 100 Mg Tablet 100 Mg PO PRN Carvedilol 3.125 Mg Tablet 12.5 Mg PO BID Erythromycin (Erythromycin Base) 250 Mg Capsule.dr 250 Mg PO BID Cardizem Cd (Diltiazem Hcl) 180 Mg Cap.er.24h 120 Mg PO DAILY Amiodarone Hcl 200 Mg Tablet 1 Tab PO DAILY Nystatin 15 Gm Powder 1 Susanna TP PRN BID PRN Proventil Hfa Inhaler (Albuterol Sulfate) 6.7 Gm Hfa.aer.ad 2 Puff IH BID PRN Zofran (Ondansetron Hcl) 4 Mg Tablet 4 Mg PO Q6-8HRS PRN Nephro-Shabbir Tablet (Folic Acid/Vitamin B Comp W-C) 0.8 Mg Tablet 1 Tab PO DAILY Tricor (Fenofibrate Nanocrystallized) 145 Mg Tablet 1 Tab PO HS Lipitor (Atorvastatin Calcium) 80 Mg Tablet 80 Mg PO HS Niacin 500 Mg Tablet 500 Mg PO HS Novolog (Insulin Aspart) 100 Unit/1 Ml Cartridge 0 SQ TIDAC sliding scale Aspirin 325 Mg Tablet 325 Mg PO DAILY Furosemide 80 Mg Tablet 80 Mg PO BID Docusate Sodium 100 Mg Capsule 1 Cap PO PRN PRN Nitrostat (Nitroglycerin) 0.4 Mg Tab.subl 0.4 Mg SL PRN Q5MIN PRN Take as needed for chest pain Vitals/I & O Vital Sign - Last 24 Hours 01/27/18 01/27/18 01/27/18 01/27/18 11:00 12:27 12:42 15:00 Temp 98.7 98.4 98.1 98.7 98.4 98.1 Pulse 90 91 104 Resp 20 16 16 18 B/P (MAP) 129/58 (81) 149/65 173/68 (103) Pulse Ox 95 97 98 89 O2 Delivery Room Air Room Air Room Air 01/27/18 01/27/18 01/27/18 01/27/18 15:16 15:16 15:31 15:43 Temp 98.9 98.9 Pulse 92 92 Resp 16 12 14 B/P (MAP) 143/58 160/62 Pulse Ox 98 93 97 O2 Delivery Mask Simple Mask Simple Mask Simple Mask O2 Flow Rate 10 10 10 10.0 01/27/18 01/27/18 01/27/18 01/27/18 15:46 15:59 16:01 16:06 Temp 98.7 98.7 Pulse 96 96 Resp 16 12 18 18 B/P (MAP) 157/60 181/67 Pulse Ox 97 97 93 96 O2 Delivery Simple Mask Simple Mask Simple Mask Simple Mask O2 Flow Rate 10 10.0 10 10.0 01/27/18 01/27/18 01/27/18 01/27/18 16:16 16:28 16:31 16:39 Temp 98.5 97.4 98.5 97.4 Pulse 98 104 Resp 14 16 14 B/P (MAP) 157/73 176/70 Pulse Ox 93 92 93 O2 Delivery Nasal Cannula Nasal Cannula Nasal Cannula Nasal Cannula O2 Flow Rate 3 3.0 3 4 01/27/18 01/27/18 01/27/18 01/27/18 17:00 17:40 18:41 18:44 Temp 97.5 97.5 97.5 97.5 Pulse 104 102 96 Resp 14 14 B/P (MAP) 176/70 167/70 174/63 O2 Delivery Nasal Cannula O2 Flow Rate 4.0 01/27/18 01/27/18 01/27/18 01/27/18 19:00 19:06 20:00 20:00 Temp 97.5 98.1 98.1 97.5 98.1 98.1 Pulse 96 96 95 Resp 18 19 B/P (MAP) 179/66 (103) 180/71 181/71 Pulse Ox 94 O2 Delivery Nasal Cannula Nasal Cannula O2 Flow Rate 3.0 01/27/18 01/27/18 01/27/18 01/28/18 21:12 22:02 22:45 03:00 Temp 99.1 100.0 99.1 100.0 Pulse 98 65 Resp 16 19 19 B/P (MAP) 173/63 (99) 178/88 (118) Pulse Ox 99 96 93 O2 Delivery Nasal Cannula Nasal Cannula Room Air O2 Flow Rate 3.0 3.0 01/28/18 07:00 Temp 97.9 97.9 Pulse 89 Resp 19 B/P (MAP) 182/72 (108) Pulse Ox 95 O2 Delivery Room Air Intake and Output 01/27/18 01/27/18 01/28/18 15:00 23:00 07:00 Intake Total 155.875 ml 0 ml Output Total 50 ml 0 ml Balance 105.875 ml 0 ml JEREMIAS VERDUGO MD Jan 28, 2018 08:13
[2018-01-28 08:33] LABS: BASO # 0.1 x10^3/uL (0.0-0.2); BASO % 0 % (0-3); EOS % 0 % (0-3); HEMATOCRIT 32.5 % (36.0-47.0); LYMPH # 0.5 x10^3/uL (1.0-4.8); LYMPH % 3 % (24-48); MEAN CORPUSCULAR HEMOGLOBIN 31 pg (25-35); MEAN CORPUSCULAR HGB CONC 34 g/dL (31-37); MEAN CORPUSCULAR VOLUME 93 fL (79-100); MONO # 0.4 x10^3/uL (0.0-1.1); MONO % 2 % (0-9); NEUT # 16.5 x10^3uL (1.8-7.7); NEUT % 95 % (31-73); PLATELET COUNT 410 x10^3/uL (140-400); RED CELL DISTRIBUTION WIDTH 18.5 % (11.5-14.5); WHITE BLOOD COUNT 17.4 x10^3/uL (4.0-11.0)
[2018-01-28 08:38] LABS: CALCIUM 8.7 mg/dL (8.5-10.1); CREATININE 7.8 mg/dL (0.6-1.0); GFR 5.4; POTASSIUM 5.6 mmol/L (3.5-5.1)
--- NOTE | 2018-01-28 08:56 | PDOC ---
PROGRESS NOTES Subjective Subjective POD 1 rt groin wound debridement with muscle flap. Patient resting comfortably in bed. She reports her pain is well controlled. She received two units of PRBC yesterday intra/post op, tolerated well. Am labs pending. She was unable to get her peritoneal dialysis last night due to mechanical errors. She has very little urine output on her own. She has elevated BP and glucose this morning, but has not had her BP or DM meds since prior to surgery yesterday - RN reports giving currently. Objective Objective Vital Signs Date Time Temp Pulse Resp B/P (MAP) Pulse Ox O2 Delivery O2 Flow Rate FiO2 01/28/18 07:00 97.9 89 19 182/72 (108) 95 Room Air 97.9 01/27/18 22:02 3.0 Intake and Output 01/28/18 07:00 Intake Total 155.875 ml Output Total 50 ml Balance 105.875 ml Intake Oral 0 ml IV Total 155.875 ml Output Urine Total 0 ml Estimated Blood Loss 50 ml Physical Exam Physical Exam Alert, oriented, in no apparent distress Respirations nonlabored Abdomen difficult to assess due to body habitus. No tenderness. Right groin with wound vac clean, dry and intact, good seal . No surrounding erythema Right lower leg with dressing clean dry and intact over incision line. Circumferential erythema and warmth extending to just below knee. Diagnosis DIAGNOSIS Right groin infected incisional wound Assessment Assessment Problems Medical Problems: (1) Chronic renal failure Status: Acute (2) Right groin infected incisional wound Plan Plan of Care POD 1 of right groin incisional infected wound debridement and sartorius muscle flap - pt doing well, pain well controlled - PT/OT ordered, patient reports not ready for PT today, start tomorrow at latest - am labs pending - Continue medical management per hospitalist - Nephrology to see today, dialysis pending - ID consulted for abx management, OR cultures pending - RN to please use interdry between skin folds - wound vac change tomorrow with vascular surgery provider to see wound before new vac placement Comment Review of Relevant I have reviewed the following items bert (where applicable) has been applied. Labs Laboratory Tests Test 01/26/18 21:52 01/27/18 05:50 01/27/18 07:43 01/27/18 11:13 White Blood Count 14.8 x10^3/uL (4.0-11.0) 12.0 x10^3/uL (4.0-11.0) Red Blood Count 2.85 x10^6/uL (3.50-5.40) 2.41 x10^6/uL (3.50-5.40) Hemoglobin 9.0 g/dL (12.0-15.5) 7.8 g/dL (12.0-15.5) Hematocrit 27.3 % (36.0-47.0) 23.2 % (36.0-47.0) Mean Corpuscular Volume 96 fL (79-100) 96 fL (79-100) Mean Corpuscular Hemoglobin 32 pg (25-35) 32 pg (25-35) Mean Corpuscular Hemoglobin Concent 33 g/dL (31-37) 34 g/dL (31-37) Red Cell Distribution Width 19.4 % (11.5-14.5) 19.7 % (11.5-14.5) Platelet Count 411 x10^3/uL (140-400) 363 x10^3/uL (140-400) Neutrophils (%) (Auto) 89 % (31-73) 82 % (31-73) Lymphocytes (%) (Auto) 4 % (24-48) 9 % (24-48) Monocytes (%) (Auto) 6 % (0-9) 7 % (0-9) Eosinophils (%) (Auto) 1 % (0-3) 1 % (0-3) Basophils (%) (Auto) 0 % (0-3) 0 % (0-3) Neutrophils # (Auto) 13.1 x10^3uL (1.8-7.7) 9.9 x10^3uL (1.8-7.7) Lymphocytes # (Auto) 0.6 x10^3/uL (1.0-4.8) 1.1 x10^3/uL (1.0-4.8) Monocytes # (Auto) 0.9 x10^3/uL (0.0-1.1) 0.9 x10^3/uL (0.0-1.1) Eosinophils # (Auto) 0.1 x10^3/uL (0.0-0.7) 0.1 x10^3/uL (0.0-0.7) Basophils # (Auto) 0.0 x10^3/uL (0.0-0.2) 0.0 x10^3/uL (0.0-0.2) Segmented Neutrophils % 86 % (35-66) Lymphocytes % 6 % (24-48) Monocytes % 8 % (0-10) Toxic Vacuolation Slight Platelet Estimate Increased (ADEQUATE) Giant Platelets Occ Polychromasia Slight Anisocytosis Slight Sodium Level 134 mmol/L (136-145) 135 mmol/L (136-145) Potassium Level 4.8 mmol/L (3.5-5.1) 4.9 mmol/L (3.5-5.1) Chloride Level 92 mmol/L (98-107) 96 mmol/L (98-107) Carbon Dioxide Level 28 mmol/L (21-32) 28 mmol/L (21-32) Anion Gap 14 (6-14) 11 (6-14) Blood Urea Nitrogen 64 mg/dL (7-20) 65 mg/dL (7-20) Creatinine 7.4 mg/dL (0.6-1.0) 7.6 mg/dL (0.6-1.0) Estimated GFR (Cockcroft-Gault) 5.8 5.6 BUN/Creatinine Ratio 9 (6-20) 9 (6-20) Glucose Level 196 mg/dL (70-99) 143 mg/dL (70-99) Lactic Acid Level 1.0 mmol/L (0.4-2.0) Calcium Level 8.8 mg/dL (8.5-10.1) 8.5 mg/dL (8.5-10.1) Total Bilirubin 0.5 mg/dL (0.2-1.0) 0.5 mg/dL (0.2-1.0) Aspartate Amino Transf (AST/SGOT) 14 U/L (15-37) 10 U/L (15-37) Alanine Aminotransferase (ALT/SGPT) 9 U/L (14-59) 8 U/L (14-59) Alkaline Phosphatase 138 U/L (46-116) 109 U/L (46-116) Total Protein 6.4 g/dL (6.4-8.2) 5.4 g/dL (6.4-8.2) Albumin 2.0 g/dL (3.4-5.0) 1.6 g/dL (3.4-5.0) Albumin/Globulin Ratio 0.5 (1.0-1.7) 0.4 (1.0-1.7) Glucose (Fingerstick) 106 mg/dL (70-99) 99 mg/dL (70-99) Test 01/27/18 15:55 01/27/18 20:13 01/28/18 05:10 01/28/18 07:46 Glucose (Fingerstick) 155 mg/dL (70-99) 243 mg/dL (70-99) 225 mg/dL (70-99) Sodium Level 135 mmol/L (136-145) Potassium Level 5.6 mmol/L (3.5-5.1) Chloride Level 95 mmol/L (98-107) Carbon Dioxide Level 23 mmol/L (21-32) Anion Gap 17 (6-14) Blood Urea Nitrogen 69 mg/dL (7-20) Creatinine 7.8 mg/dL (0.6-1.0) Estimated GFR (Cockcroft-Gault) 5.4 Glucose Level 225 mg/dL (70-99) Calcium Level 8.7 mg/dL (8.5-10.1) Random Vancomycin Level 25.3 mcg/mL Laboratory Tests Test 01/27/18 11:13 01/27/18 15:55 01/27/18 20:13 01/28/18 05:10 Glucose (Fingerstick) 99 mg/dL (70-99) 155 mg/dL (70-99) 243 mg/dL (70-99) Sodium Level 135 mmol/L (136-145) Potassium Level 5.6 mmol/L (3.5-5.1) Chloride Level 95 mmol/L (98-107) Carbon Dioxide Level 23 mmol/L (21-32) Anion Gap 17 (6-14) Blood Urea Nitrogen 69 mg/dL (7-20) Creatinine 7.8 mg/dL (0.6-1.0) Estimated GFR (Cockcroft-Gault) 5.4 Glucose Level 225 mg/dL (70-99) Calcium Level 8.7 mg/dL (8.5-10.1) Random Vancomycin Level 25.3 mcg/mL Test 01/28/18 07:46 Glucose (Fingerstick) 225 mg/dL (70-99) Microbiology 01/26/18 Blood Culture - Preliminary, Resulted NO GROWTH AFTER 1 DAY 01/26/18 Anaerobic/Aerobic Culture, Resulted Pending 01/26/18 Anaerobic Culture Result 1 (ROSALIND), Resulted Pending 01/26/18 Aerobic Culture, Resulted Pending 01/26/18 Aerobic Culture Result 1 (ROSALIND), Resulted Pending 01/26/18 Gram Stain - Final, Resulted 01/26/18 Gram Stain Result 1 (ROSALIND) - Final, Resulted 01/26/18 Gram Stain Result 2 (ROSALIND) - Final, Resulted 01/26/18 Gram Stain Result 3 (ROSALIND) - Final, Resulted Medications Current Medications Hydromorphone HCl (Dilaudid) 2 mg 1X ONCE IV Last administered on 01/26/18at 22 :39; Start 01/26/18 at 22:00; Stop 01/26/18 at 22:01; Status DC Vancomycin HCl (Vanco Per Pharmacy) 1 each PRN DAILY PRN MC SEE COMMENTS Last administered on 01/27/18at 17:17; Start 01/26/18 at 22:45 Vancomycin HCl 1.75 gm/Sodium Chloride 500 ml @ 250 mls/hr 1X ONCE IV Last administered on 01/26/18at 23:53; Start 01/26/18 at 23:00; Stop 01/27/18 at 00:59 ; Status DC Ondansetron HCl (Zofran) 4 mg PRN Q8HRS PRN IV NAUSEA/VOMITING 1ST CHOICE; Start 01/26/18 at 23:15; Stop 01/27/18 at 23:14; Status DC Sodium Chloride 1,000 ml @ 75 mls/hr [id number] IV Last administered on at 00:39; Start 01/26/18 at 23:30; Stop 01/27/18 at 23:29; Status DC Pharmacy Consult (C.diff Med Screen By Rx) 1 each 1X ONCE MC ; Start 01/27/18 at 01:00; Stop 01/27/18 at 01:01; Status Cancel Influenza Virus Vaccine (Afluria Trivalent [id number] Syringe) 0.5 ml ONCE ONCE VAX IM ; Start 01/27/18 at 09:00; Stop 01/27/18 at 09:01; Status DC Vancomycin HCl (Vancomycin Random Level) 1 each 1X ONCE MC Last administered on 01/28/18at 05:00; Start 01/28/18 at 05:00; Stop 01/28/18 at 05:01; Status DC Hydromorphone HCl (Dilaudid) 1 mg PRN Q3HRS PRN IV SEVERE PAIN Last administered on 01/28/18at 05:20; Start 01/27/18 at 03:30 Ondansetron HCl (Zofran) 4 mg PRN Q6HRS PRN IV NAUSEA/VOMITING; Start 01/27/18 at 10:45; Stop 01/27/18 at 18:00; Status DC Fentanyl Citrate (Fentanyl 2ml Vial) 25 mcg PRN Q5MIN PRN IV MILD PAIN; Start 01/27/18 at 10:45; Stop 01/27/18 at 18:00; Status DC Fentanyl Citrate (Fentanyl 2ml Vial) 50 mcg PRN Q5MIN PRN IV MODERATE TO SEVERE PAIN; Start 01/27/18 at 10:45; Stop 01/27/18 at 18:00; Status DC Morphine Sulfate (Morphine Sulfate) 1 mg PRN Q10MIN PRN IV SEVERE PAIN Last administered on 01/27/18at 16:28; Start 01/27/18 at 10:45; Stop 01/27/18 at 18:00 ; Status DC Ringer's Solution 1,000 ml @ 30 mls/hr Q24H IV Last administered on 01/27/18at 10:35; Start 01/27/18 at 10:35; Stop 01/27/18 at 19:36; Status DC Lidocaine HCl (Xylocaine-Mpf 1% 2ml Vial) 2 ml 1X PRN PRN ID IV START; Start 01/27/18 at 10:45; Stop 01/27/18 at 18:00; Status DC Hydromorphone HCl (Dilaudid) 0.5 mg PRN Q10MIN PRN IV SEV PAIN, Second choice Last administered on 01/27/18at 15:59; Start 01/27/18 at 10:45; Stop 01/27/18 at 18:00; Status DC Prochlorperazine Edisylate (Compazine) 5 mg PACU PRN PRN IV NAUSEA, MRX1; Start 01/27/18 at 10:45; Stop 01/27/18 at 18:00; Status DC Amiodarone HCl (Cordarone) 200 mg DAILY PO ; Start 01/27/18 at 12:30 Aspirin (Anthony Aspirin) 325 mg DAILY PO ; Start 01/27/18 at 12:30 Carbamazepine (TEGretol) 200 mg BID PO Last administered on 01/27/18at 21:12; Start 01/27/18 at 12:30 Carvedilol (Coreg) 12.5 mg BIDWMEALS PO ; Start 01/27/18 at 12:30 Vitamin B Complex/ Vitamin C (Melly-Shabbir) 1 tab DAILY PO ; Start 01/27/18 at 12: 30 Furosemide (Lasix) 80 mg BID92 PO ; Start 01/27/18 at 12:30 Insulin Glargine (Lantus) 22 units QHS SQ Last administered on 01/27/18at 21:20 ; Start 01/27/18 at 21:00 Morphine Sulfate (Ms Contin) 15 mg BID PO Last administered on 01/27/18at 21:12 ; Start 01/27/18 at 12:30 Nitroglycerin (Nitrostat) 0.4 mg PRN Q5MIN PRN SL CHEST PAIN; Start 01/27/18 at 12:00 Nystatin (Nystop) 1 susanna PRN BID PRN TP SKIN BREAKDOWN; Start 01/27/18 at 12:00 Tramadol HCl (Ultram) 50 mg PRN Q4HRS PRN PO HEADACHE; Start 01/27/18 at 12:00 Non-Formulary Medication (Albuterol Sulfate (Proventil Hfa Inhaler)) 2 puff BID PRN IH FOR ASTHMA; Start 01/27/18 at 12:00; Status UNV Atorvastatin Calcium (Lipitor) 80 mg QHS PO Last administered on 01/27/18at 21: 12; Start 01/27/18 at 21:00 Calcitriol (Rocaltrol) 0.25 mcg DAILY PO ; Start 01/27/18 at 12:30 Diltiazem HCl (Cardizem 24hr Cd) 120 mg DAILY PO ; Start 01/27/18 at 12:30 Erythromycin (E-Mycin) 250 mg BID PO Last administered on 01/27/18at 21:12; Start 01/27/18 at 21:00 Fenofibrate (Lofibra) 134 mg QHS PO Last administered on 01/27/18at 21:12; Start 01/27/18 at 21:00 Non-Formulary Medication (Fluconazole (Diflucan)) 100 mg PRN PO ; Start at 12:00; Status UNV Lidocaine (Lidoderm) 1 patch PRN DAILY PRN TD PAIN; Start 01/27/18 at 09:00 Niacin (Slo-Niacin) 500 mg QHS PO Last administered on 01/27/18at 21:12; Start 01/27/18 at 21:00 Ondansetron HCl (Zofran Odt) 4 mg PRN Q6HRS PRN PO NAUSEA/VOMITING; Start 01/27 at 12:15 Miscellaneous (Lidoderm Patch Removal) 1 ea QHS MC ; Start 01/27/18 at 21:00 Albuterol Sulfate (Ventolin Neb Soln) 2.5 mg PRN BID PRN NEB SHORTNESS OF BREATH Last administered on 01/27/18at 21:59; Start 01/27/18 at 12:30 Lidocaine HCl (Lidocaine 1% 50ml Vial) 50 ml 1X ONCE INJ Last administered on 01/27/18at 14:06; Start 01/27/18 at 12:45; Stop 01/27/18 at 12:46; Status DC Hydromorphone HCl (Dilaudid) 2 mg STK-MED ONCE .ROUTE ; Start 01/27/18 at 12:36 ; Stop 01/27/18 at 12:38; Status DC Propofol 20 ml @ As Directed STK-MED ONCE IV ; Start 01/27/18 at 12:38; Stop at 12:39; Status DC Bacitracin 24670 unit/Sodium Chloride 3,000 ml @ 0 mls/hr 1X ONCE IR ; Start 01/27/18 at 13:15; Stop 01/27/18 at 13:16; Status Cancel Dexamethasone Sodium Phosphate (Decadron) 20 mg STK-MED ONCE .ROUTE ; Start 01/27/18 at 13:11; Stop 01/27/18 at 13:12; Status DC Ondansetron HCl (Zofran) 4 mg STK-MED ONCE .ROUTE ; Start 01/27/18 at 13:11; Stop 01/27/18 at 13:12; Status DC Sevoflurane (Ultane) 30 ml STK-MED ONCE IH ; Start 01/27/18 at 13:11; Stop 01/27 at 13:12; Status DC Bacitracin (Bacitracin) 50,000 unit STK-MED ONCE IRR Last administered on at 13:58; Start 01/27/18 at 12:14; Stop 01/27/18 at 13:16; Status DC Clopidogrel Bisulfate (Plavix) 75 mg DAILYWBKFT PO ; Start 01/28/18 at 08:00 Hydromorphone HCl (Dilaudid) 2 mg STK-MED ONCE .ROUTE ; Start 01/27/18 at 15:38 ; Stop 01/27/18 at 15:40; Status DC Gentamicin Sulfate 235 mg/ Dextrose 105.875 ml @ 105.875 mls/hr 1X ONCE IV Last administered on 01/27/18at 19:56; Start 01/27/18 at 16:00; Stop 01/27/18 at 16:59; Status DC Lactobacillus Rhamnosus (Culturelle) 1 cap BID PO Last administered on at 21:12; Start 01/27/18 at 21:00 Active Scripts Active Percocet 10-325 Mg Tablet (Oxycodone/Acetaminophen) 1 Each Tablet 1 Tab PO Q4HRS Brilinta (Ticagrelor) 90 Mg Tablet 90 Mg PO BID 30 Days Morphine Sulfate Er (Morphine Sulfate) 15 Mg Tablet.er 15 Mg PO BID Reported Lidocaine 1 Each Adh..patch 1 Each TP PRN DAILY PRN Calcitriol 0.25 Mcg Capsule 1 Cap PO DAILY Tegretol (Carbamazepine) 200 Mg Tablet 1 Tab PO BID Tramadol Hcl 50 Mg Tablet 50 Mg PO Q4HRS PRN Lantus Solostar (Insulin Glargine,Hum.rec.anlog) 100 Unit/1 Ml Insuln.pen 22 Unit SQ QHS Diflucan (Fluconazole) 100 Mg Tablet 100 Mg PO PRN Carvedilol 3.125 Mg Tablet 12.5 Mg PO BID Erythromycin (Erythromycin Base) 250 Mg Capsule.dr 250 Mg PO BID Cardizem Cd (Diltiazem Hcl) 180 Mg Cap.er.24h 120 Mg PO DAILY Amiodarone Hcl 200 Mg Tablet 1 Tab PO DAILY Nystatin 15 Gm Powder 1 Susanna TP PRN BID PRN Proventil Hfa Inhaler (Albuterol Sulfate) 6.7 Gm Hfa.aer.ad 2 Puff IH BID PRN Zofran (Ondansetron Hcl) 4 Mg Tablet 4 Mg PO Q6-8HRS PRN Nephro-Shabbir Tablet (Folic Acid/Vitamin B Comp W-C) 0.8 Mg Tablet 1 Tab PO DAILY Tricor (Fenofibrate Nanocrystallized) 145 Mg Tablet 1 Tab PO HS Lipitor (Atorvastatin Calcium) 80 Mg Tablet 80 Mg PO HS Niacin 500 Mg Tablet 500 Mg PO HS Novolog (Insulin Aspart) 100 Unit/1 Ml Cartridge 0 SQ TIDAC sliding scale Aspirin 325 Mg Tablet 325 Mg PO DAILY Furosemide 80 Mg Tablet 80 Mg PO BID Docusate Sodium 100 Mg Capsule 1 Cap PO PRN PRN Nitrostat (Nitroglycerin) 0.4 Mg Tab.subl 0.4 Mg SL PRN Q5MIN PRN Take as needed for chest pain Vitals/I & O Vital Sign - Last 24 Hours 01/27/18 01/27/18 01/27/18 01/27/18 11:00 12:27 12:42 15:00 Temp 98.7 98.4 98.1 98.7 98.4 98.1 Pulse 90 91 104 Resp 20 16 16 18 B/P (MAP) 129/58 (81) 149/65 173/68 (103) Pulse Ox 95 97 98 89 O2 Delivery Room Air Room Air Room Air 01/27/18 01/27/18 01/27/18 01/27/18 15:16 15:16 15:31 15:43 Temp 98.9 98.9 Pulse 92 92 Resp 16 12 14 B/P (MAP) 143/58 160/62 Pulse Ox 98 93 97 O2 Delivery Mask Simple Mask Simple Mask Simple Mask O2 Flow Rate 10 10 10 10.0 01/27/18 01/27/18 01/27/18 01/27/18 15:46 15:59 16:01 16:06 Temp 98.7 98.7 Pulse 96 96 Resp 16 12 18 18 B/P (MAP) 157/60 181/67 Pulse Ox 97 97 93 96 O2 Delivery Simple Mask Simple Mask Simple Mask Simple Mask O2 Flow Rate 10 10.0 10 10.0 01/27/18 01/27/18 01/27/18 01/27/18 16:16 16:28 16:31 16:39 Temp 98.5 97.4 98.5 97.4 Pulse 98 104 Resp 14 16 14 B/P (MAP) 157/73 176/70 Pulse Ox 93 92 93 O2 Delivery Nasal Cannula Nasal Cannula Nasal Cannula Nasal Cannula O2 Flow Rate 3 3.0 3 4 01/27/18 01/27/18 01/27/18 01/27/18 17:00 17:40 18:41 18:44 Temp 97.5 97.5 97.5 97.5 Pulse 104 102 96 Resp 14 14 B/P (MAP) 176/70 167/70 174/63 O2 Delivery Nasal Cannula O2 Flow Rate 4.0 01/27/18 01/27/18 01/27/18 01/27/18 19:00 19:06 20:00 20:00 Temp 97.5 98.1 98.1 97.5 98.1 98.1 Pulse 96 96 95 Resp 18 19 B/P (MAP) 179/66 (103) 180/71 181/71 Pulse Ox 94 O2 Delivery Nasal Cannula Nasal Cannula O2 Flow Rate 3.0 01/27/18 01/27/18 01/27/18 01/28/18 21:12 22:02 22:45 03:00 Temp 99.1 100.0 99.1 100.0 Pulse 98 65 Resp 16 19 19 B/P (MAP) 173/63 (99) 178/88 (118) Pulse Ox 99 96 93 O2 Delivery Nasal Cannula Nasal Cannula Room Air O2 Flow Rate 3.0 3.0 01/28/18 07:00 Temp 97.9 97.9 Pulse 89 Resp 19 B/P (MAP) 182/72 (108) Pulse Ox 95 O2 Delivery Room Air Intake and Output 01/27/18 01/27/18 01/28/18 15:00 23:00 07:00 Intake Total 155.875 ml 0 ml Output Total 50 ml 0 ml Balance 105.875 ml 0 ml HONG OKEEFE Jan 28, 2018 08:56
[2018-01-28] MEDS: MORPHINE ER 15 MG TABLET.ER PO SCH ×2 (09:00→20:55)
[2018-01-28] MEDS: FUROSEMIDE 80 MG TABLET. PO SCH ×2 (09:12→17:46)
[2018-01-28] MEDS: CALCITRIOL 0.25 MCG CAPSULE. PO SCH (09:13)
[2018-01-28] MEDS: CARVEDILOL 12.5 MG TABLET. PO SCH ×2 (09:13→17:46)
[2018-01-28] MEDS: AMIODARONE HCL 200 MG TABLET. PO SCH (09:13)
[2018-01-28] MEDS: ASPIRIN 325 MG TABLET PO SCH (09:13)
[2018-01-28] MEDS: carBAMazepine 200 MG TABLET PO SCH ×2 (09:13→20:54)
[2018-01-28] MEDS: LACTOBACILLUS RHAMNOSUS GG 1 CAPSULE. PO SCH ×2 (09:14→20:54)
[2018-01-28] MEDS: FOLIC/VIT B COMP W-C (RENAL) TABLET. PO SCH (09:14)
[2018-01-28] MEDS: ERYTHROMYCIN BASE 250 MG TABLET PO SCH ×2 (09:14→20:54)
--- NOTE | 2018-01-28 09:28 | PDOC ---
Infectious Disease Note Vital Sign Vital Signs Vital Signs Date Time Temp Pulse Resp B/P (MAP) Pulse Ox O2 Delivery O2 Flow Rate FiO2 01/28/18 07:00 97.9 89 19 182/72 (108) 95 Room Air 97.9 01/27/18 22:02 3.0 Labs Lab Laboratory Tests Test 01/27/18 11:13 01/27/18 15:55 01/27/18 20:13 01/28/18 05:10 Glucose (Fingerstick) 99 mg/dL (70-99) 155 mg/dL (70-99) 243 mg/dL (70-99) White Blood Count 17.4 x10^3/uL (4.0-11.0) Red Blood Count 3.50 x10^6/uL (3.50-5.40) Hemoglobin 11.0 g/dL (12.0-15.5) Hematocrit 32.5 % (36.0-47.0) Mean Corpuscular Volume 93 fL (79-100) Mean Corpuscular Hemoglobin 31 pg (25-35) Mean Corpuscular Hemoglobin Concent 34 g/dL (31-37) Red Cell Distribution Width 18.5 % (11.5-14.5) Platelet Count 410 x10^3/uL (140-400) Neutrophils (%) (Auto) 95 % (31-73) Lymphocytes (%) (Auto) 3 % (24-48) Monocytes (%) (Auto) 2 % (0-9) Eosinophils (%) (Auto) 0 % (0-3) Basophils (%) (Auto) 0 % (0-3) Neutrophils # (Auto) 16.5 x10^3uL (1.8-7.7) Lymphocytes # (Auto) 0.5 x10^3/uL (1.0-4.8) Monocytes # (Auto) 0.4 x10^3/uL (0.0-1.1) Eosinophils # (Auto) 0.0 x10^3/uL (0.0-0.7) Basophils # (Auto) 0.1 x10^3/uL (0.0-0.2) Sodium Level 135 mmol/L (136-145) Potassium Level 5.6 mmol/L (3.5-5.1) Chloride Level 95 mmol/L (98-107) Carbon Dioxide Level 23 mmol/L (21-32) Anion Gap 17 (6-14) Blood Urea Nitrogen 69 mg/dL (7-20) Creatinine 7.8 mg/dL (0.6-1.0) Estimated GFR (Cockcroft-Gault) 5.4 Glucose Level 225 mg/dL (70-99) Calcium Level 8.7 mg/dL (8.5-10.1) Random Vancomycin Level 25.3 mcg/mL Test 01/28/18 07:46 Glucose (Fingerstick) 225 mg/dL (70-99) Micro Microbiology 01/26/18 Blood Culture - Preliminary, Resulted NO GROWTH AFTER 1 DAY 01/26/18 Anaerobic/Aerobic Culture, Resulted Pending 01/26/18 Anaerobic Culture Result 1 (ROSALIND), Resulted Pending 01/26/18 Aerobic Culture, Resulted Pending 01/26/18 Aerobic Culture Result 1 (ROSALIND), Resulted Pending 01/26/18 Gram Stain - Final, Resulted 01/26/18 Gram Stain Result 1 (ROSALIND) - Final, Resulted 01/26/18 Gram Stain Result 2 (ROSALIND) - Final, Resulted 01/26/18 Gram Stain Result 3 (ROSALIND) - Final, Resulted Objective Assessment Rt leg surgery site infection s/p I and D PAD s/p leg bypass ESRD Multiple med allergery Plan Plan of Care corinne shine yesterday d/w pt can take cefazolin ( itching ), will give cefepime and flagyl check cultures DANDY LÓPEZ MD Jan 28, 2018 09:28
[2018-01-28] MEDS ORDERED: TICA90TA PO (09:32)
[2018-01-28 11:04] VITALS: BP 157/75
[2018-01-28] MEDS ORDERED: LIDOCAINE 2% PF 2ML VIAL. ONE ×2 (11:41→12:00)
[2018-01-28] MEDS ORDERED: IV NORMAL SALINE 1000ML BAG 1,000 ML IV PRN (12:09)
[2018-01-28] MEDS ORDERED: DIALYSIS PATIENT. MC PRN ×2 (12:15)
[2018-01-28] MEDS ORDERED: LIDOCAINE 2% PF 2ML VIAL. INJ ONE (12:15)
[2018-01-28] MEDS ORDERED: diphenhydrAMINE HCL 25 MG CAPSULE PO PRN (14:15)
[2018-01-28] MEDS ORDERED: hydrALAZINE 10 MG TABLET PO PRN (14:45)
[2018-01-28] MEDS ORDERED: DEXTROSE 50% 25 GM / 50ML DISP.SYRIN. IV PRN (14:45)
[2018-01-28 15:40] VITALS: BP 152/74
[2018-01-28] MEDS: VANCOMYCIN PER PHARMACY MC PRN ×2 (15:50→15:53)
[2018-01-28] MEDS: INSULIN LISPRO 300 UNITS/3 ML INSULN.PEN. SQ SCH (17:57)
[2018-01-28 19:00] VITALS: BP 124/51
[2018-01-28] MEDS: NIACIN ER 500 MG TABLET.ER PO SCH (20:54)
[2018-01-28] MEDS: CEFEPIME HCL IV Push 1 GM VIAL. IVP SCH (20:54)
[2018-01-28] MEDS: FENOFIBRATE,MICRONIZED 134 MG CAPSULE PO SCH (20:54)
[2018-01-28] MEDS: ATORVASTATIN CALCIUM 40 MG TABLET. PO SCH (20:54)
[2018-01-28] MEDS: TICAGRELOR 90 MG TABLET. PO SCH (20:54)
[2018-01-28] MEDS: PATCH REMOVAL. MC SCH (20:55)
[2018-01-28] MEDS: INSULIN GLARGINE 300 UNITS/3 ML INSULN.PEN. SQ SCH (21:13)
[2018-01-28 22:50] VITALS: BP 108/54
--- NOTE | 2018-01-28 23:55 | CONS ---
DATE OF CONSULTATION: 01/28/2018 REQUESTING PHYSICIAN: Dr. Reina and Dr. Yadav. REASON FOR CONSULTATION: Infected surgery site. HISTORY OF PRESENT ILLNESS: This is a 52-year-old female who is known to us. The patient, on last admission here, underwent femoral to below-knee popliteal artery bypass with great saphenous vein who came back with infected right groin and upper thigh incisional wound with necrotic and gangrenous changes and dehiscence. The patient underwent surgery yesterday. I and D was done. The patient was on vancomycin and I added gentamicin yesterday. The patient also has redness of the leg. The patient also has had fever, leukocytosis, and denies any nausea, vomiting or diarrhea. Denies any chest pain, shortness of breath, abdominal pain, urinary symptoms or bowel symptoms. The patient otherwise has no complaints or problems. PAST MEDICAL HISTORY: Positive for end-stage renal disease on hemodialysis. The patient also has coronary artery disease, hypertension, aortic stenosis, valvular insufficiency, COPD, asthma, fibromyalgia, diabetes, hyperparathyroidism. PAST SURGICAL HISTORY: She has had coronary artery bypass grafting, hysterectomy and right lower extremity leg arterial bypass done recently. SOCIAL HISTORY: Negative for smoking, alcohol or illicit drug use. ALLERGIES: SHE IS LISTED ALLERGIC TO CEFAZOLIN, WHICH CAUSES ITCHING, MEROPENEM AND PIPERACILLIN CAUSED "BLEEDING RASH" ACCORDING TO HER. REVIEW OF SYSTEMS: As per HPI, all other systems reviewed are negative. CURRENT MEDICATIONS: Reviewed. The patient is on vancomycin and dose of gentamicin was given yesterday as I tried to see the patient. The patient was in surgery. PHYSICAL EXAMINATION: GENERAL: Alert, oriented female, not in distress. VITAL SIGNS: Stable. The patient did have 100.0 temperature yesterday, HEENT: Anicteric. NECK: Supple, no JVP, no lymphadenopathy. LUNGS: Clear. HEART: S1, S2 regular. ABDOMEN: Benign. EXTREMITIES: The left lower extremity is amputated. The right lower extremity is erythematous. Postsurgical dressing not opened as extensive debridement done yesterday. NEUROLOGIC: The patient is neurologically intact. LABORATORY DATA: White count is 17.4, platelets are 410,000. BUN and creatinine is 69 and 7.8. Her culture from 01/26/2018 is showing Gram-negative ariana. IMPRESSION: 1. Right leg bypass surgery site wound dehiscence with infection, status post incision and drainage. 2. Fever. 3. Leukocytosis. 4. End-stage renal disease, on hemodialysis. 5. Coronary artery disease. 6. Peripheral arterial disease, status post bypass. 7. Multiple medication allergies. RECOMMENDATIONS: Would continue vancomycin. I am going to put her on cefepime. I did discuss with her. She feels comfortable. She just had itching with cefazolin and also add Flagyl to add anaerobic coverage. Supportive care. We will check the culture and adjust and continue to follow. Thank you very much, Dr. Yadav, for giving me the opportunity to participate in this patient's care. DANDY LÓPEZ MD DR: MARK/guillermo JOB#: [id number] / [id number]
[2018-01-29] VITALS (8 sets, daily range): BP systolic 119–143; BP diastolic 48–62
[2018-01-29] MEDS: HYDROmorphone 2 MG/ML VIAL IV PRN ×2 (07:02→21:06)
--- NOTE | 2018-01-29 07:44 | PDOC ---
Provider Note Provider Note Vascular S: Patient with c/o nausea last pm Nursing at bedside, difficulty with IV medication administration O: Awake and alert, mild distress Right leg with wound vac in place, lower leg rubrous with moderate edema, foot warm, doppler distal pulses dorsum of foot Dr. Reina present, wound vac changed, graft remains covered, some dusky tissue in wound bed, skin edges clean with mild erythema. A/P: Recent right femoral to below knee popliteal artery bypass with great saphenous vein with a severely infected right groin and upper thigh incisional wound with necrotic gangrenous tissue and dehiscence of the incision. POD #3 1. Sharp wide excisional debridement of the right groin and upper thigh wound measuring a total of 32 cm in length x 8 cm in width x 4 cm in depth after debridement was finished. 2. Right sartorius muscle flap, which was rotated medially and wrapped around the great saphenous vein exposed bypass. 3. Wound VAC placement to the right groin large open wound. Wound vac change at bedside today, patient will need additional surgical debridement sometime next week, will monitor over weekend, Dr. Reina will change vac on Thursday. Continue antibiotics per ID, will need aggressive treatment. PICC line placement today Pain management, Percocet added Patient needs dual antiplatelet, currently on Aspirin and BrilinTANVIR Fowler APRN Jan 29, 2018 07:44
--- NOTE | 2018-01-29 07:57 | PDOC ---
PROGRESS NOTES Chief Complaint Chief Complaint Right groin wound infection Sepsis from Right LE cellulitis ESRD on PD History of Present Illness History of Present Illness Ms. Rosenbaum, is a 52 year old female admit with redness and leg pain acute pain to right leg with swelling. She was just discharged from the hospital recently after being admitted for cellulitis and hypocalcemia, is finishing her keflex at home and wound care as well. Culture was obtained in ED and she was noted tachycardic in the 110s with a WBC of 14.8 initially. To OR on 01/27/18 for debridement and wound vac placement. Having some pain. Admitted with right groin wound and RLE cellulitis failing outpatient therapy. Patient denies having chest pain or palpitations. Currently she reports her pain is a 6 out of 10 on the pain scale, she has placed on ABD pad in her groin to prevent abrasions with the wound vac She is still on 4L NCO2, but feels she is breathing better while sitting in bed today. HTN still difficult to control despite labetalol, will add prn oral hydralazine as well and glucose up today. Today is worried about constipation. She lost IV access as well, consents to PICC line A/P: Right groin wound - cultures obtained polymicrobial, antibiotics, to OR. Dressing changes per surgery Hypoxia - likely 2/2 fluid overload with poor PD session last night. Wean O2 as tolerated Sepsis from cellulitis - on admission, started on empiric antibiotics and was given appropriate fluids, likely still a little overloaded from fluids, however , sepsis has improved now RLE cellulitis - swelling looks a bit improved, cont antibiotics cefepime and flagyl. Wound vac intact ESRD on PD - consult nephrology, she does use HD occasionally, has been using 4 bags during day as she has trouble at night Diabetes with Hyperglycemia - will place on sliding scale insulin CAD with HTN - managed on meds, will add prn labetalol and hydralazine Severe protein calorie malnutrition - albumin 1.7, will add renal supplements for wound healing acceleration Constipation - Add stool softeners Access - picc today Vitals Vitals Vital Signs Date Time Temp Pulse Resp B/P (MAP) Pulse Ox O2 Delivery O2 Flow Rate FiO2 01/29/18 07:02 Nasal Cannula 2.0 01/29/18 03:00 73 18 138/59 (85) 97 01/28/18 22:50 98.1 98.1 Physical Exam General: Alert, Oriented X3, Cooperative Heart: Regular rate, Normal S1, Normal S2 Lungs: Clear, Wheezing Abdomen: Normal bowel sounds, Soft, No tenderness, Other (PD cath clean dry and intact) Extremities: Other (RLE red along staple line with swollen red foot and right groin open wound, foul smelling. LLE BKA clean. RUE fistula with good bruit) Skin: Other (dehiscence of the proximal right common femoral incision and vein harvest site with lower extremity edema and mild cellulitis) Labs LABS Laboratory Tests Test 01/28/18 11:39 01/28/18 16:41 01/28/18 20:55 01/29/18 05:15 Glucose (Fingerstick) 234 mg/dL (70-99) 185 mg/dL (70-99) 309 mg/dL (70-99) Random Vancomycin Level 18.0 mcg/mL Assessment and Plan Assessmemt and Plan Problems Medical Problems: (1) Chronic renal failure Status: Acute Comment Review of Relevant I have reviewed the following items bert (where applicable) has been applied. Labs Laboratory Tests Test 01/27/18 11:13 01/27/18 15:55 01/27/18 20:13 01/28/18 05:10 Glucose (Fingerstick) 99 mg/dL (70-99) 155 mg/dL (70-99) 243 mg/dL (70-99) White Blood Count 17.4 x10^3/uL (4.0-11.0) Red Blood Count 3.50 x10^6/uL (3.50-5.40) Hemoglobin 11.0 g/dL (12.0-15.5) Hematocrit 32.5 % (36.0-47.0) Mean Corpuscular Volume 93 fL (79-100) Mean Corpuscular Hemoglobin 31 pg (25-35) Mean Corpuscular Hemoglobin Concent 34 g/dL (31-37) Red Cell Distribution Width 18.5 % (11.5-14.5) Platelet Count 410 x10^3/uL (140-400) Neutrophils (%) (Auto) 95 % (31-73) Lymphocytes (%) (Auto) 3 % (24-48) Monocytes (%) (Auto) 2 % (0-9) Eosinophils (%) (Auto) 0 % (0-3) Basophils (%) (Auto) 0 % (0-3) Neutrophils # (Auto) 16.5 x10^3uL (1.8-7.7) Lymphocytes # (Auto) 0.5 x10^3/uL (1.0-4.8) Monocytes # (Auto) 0.4 x10^3/uL (0.0-1.1) Eosinophils # (Auto) 0.0 x10^3/uL (0.0-0.7) Basophils # (Auto) 0.1 x10^3/uL (0.0-0.2) Sodium Level 135 mmol/L (136-145) Potassium Level 5.6 mmol/L (3.5-5.1) Chloride Level 95 mmol/L (98-107) Carbon Dioxide Level 23 mmol/L (21-32) Anion Gap 17 (6-14) Blood Urea Nitrogen 69 mg/dL (7-20) Creatinine 7.8 mg/dL (0.6-1.0) Estimated GFR (Cockcroft-Gault) 5.4 Glucose Level 225 mg/dL (70-99) Calcium Level 8.7 mg/dL (8.5-10.1) Random Vancomycin Level 25.3 mcg/mL Hepatitis B Surface Antigen Nonreactive (Nonreactive) Hepatitis B Surface Antibody Nonreactive Test 01/28/18 07:46 01/28/18 11:39 01/28/18 16:41 01/28/18 20:55 Glucose (Fingerstick) 225 mg/dL (70-99) 234 mg/dL (70-99) 185 mg/dL (70-99) 309 mg/dL (70-99) Test 01/29/18 05:15 Random Vancomycin Level 18.0 mcg/mL Laboratory Tests Test 01/28/18 11:39 01/28/18 16:41 01/28/18 20:55 01/29/18 05:15 Glucose (Fingerstick) 234 mg/dL (70-99) 185 mg/dL (70-99) 309 mg/dL (70-99) Random Vancomycin Level 18.0 mcg/mL Microbiology 01/26/18 Blood Culture - Preliminary, Resulted NO GROWTH AFTER 2 DAYS 01/27/18 Anaerobic/Aerobic Culture, Resulted Pending 01/27/18 Anaerobic Culture Result 1 (ROSALIND), Resulted Pending 01/27/18 Aerobic Culture, Resulted Pending 01/27/18 Aerobic Culture Result 1 (ROSALIND), Resulted Pending 01/27/18 Gram Stain - Final, Resulted 01/27/18 Gram Stain Result 1 (ROSALIND) - Final, Resulted 01/27/18 Gram Stain Result 2 (ROSALIND) - Final, Resulted Medications Current Medications Hydromorphone HCl (Dilaudid) 2 mg 1X ONCE IV Last administered on 01/26/18at 22 :39; Start 01/26/18 at 22:00; Stop 01/26/18 at 22:01; Status DC Vancomycin HCl (Vanco Per Pharmacy) 1 each PRN DAILY PRN MC SEE COMMENTS Last administered on 01/28/18at 15:53; Start 01/26/18 at 22:45 Vancomycin HCl 1.75 gm/Sodium Chloride 500 ml @ 250 mls/hr 1X ONCE IV Last administered on 01/26/18at 23:53; Start 01/26/18 at 23:00; Stop 01/27/18 at 00:59 ; Status DC Ondansetron HCl (Zofran) 4 mg PRN Q8HRS PRN IV NAUSEA/VOMITING 1ST CHOICE; Start 01/26/18 at 23:15; Stop 01/27/18 at 23:14; Status DC Sodium Chloride 1,000 ml @ 75 mls/hr [id number] IV Last administered on at 00:39; Start 01/26/18 at 23:30; Stop 01/27/18 at 23:29; Status DC Pharmacy Consult (C.diff Med Screen By Rx) 1 each 1X ONCE MC ; Start 01/27/18 at 01:00; Stop 01/27/18 at 01:01; Status Cancel Influenza Virus Vaccine (Afluria Trivalent [id number] Syringe) 0.5 ml ONCE ONCE VAX IM Last administered on 01/27/18at 09:00; Start 01/27/18 at 09:00; Stop 01/27/18 at 09:01; Status DC Vancomycin HCl (Vancomycin Random Level) 1 each 1X ONCE MC Last administered on 01/28/18at 05:00; Start 01/28/18 at 05:00; Stop 01/28/18 at 05:01; Status DC Hydromorphone HCl (Dilaudid) 1 mg PRN Q3HRS PRN IV SEVERE PAIN Last administered on 01/29/18at 07:02; Start 01/27/18 at 03:30 Ondansetron HCl (Zofran) 4 mg PRN Q6HRS PRN IV NAUSEA/VOMITING; Start 01/27/18 at 10:45; Stop 01/27/18 at 18:00; Status DC Fentanyl Citrate (Fentanyl 2ml Vial) 25 mcg PRN Q5MIN PRN IV MILD PAIN; Start 01/27/18 at 10:45; Stop 01/27/18 at 18:00; Status DC Fentanyl Citrate (Fentanyl 2ml Vial) 50 mcg PRN Q5MIN PRN IV MODERATE TO SEVERE PAIN; Start 01/27/18 at 10:45; Stop 01/27/18 at 18:00; Status DC Morphine Sulfate (Morphine Sulfate) 1 mg PRN Q10MIN PRN IV SEVERE PAIN Last administered on 01/27/18at 16:28; Start 01/27/18 at 10:45; Stop 01/27/18 at 18:00 ; Status DC Ringer's Solution 1,000 ml @ 30 mls/hr Q24H IV Last administered on 01/27/18at 10:35; Start 01/27/18 at 10:35; Stop 01/27/18 at 19:36; Status DC Lidocaine HCl (Xylocaine-Mpf 1% 2ml Vial) 2 ml 1X PRN PRN ID IV START; Start 01/27/18 at 10:45; Stop 01/27/18 at 18:00; Status DC Hydromorphone HCl (Dilaudid) 0.5 mg PRN Q10MIN PRN IV SEV PAIN, Second choice Last administered on 01/27/18at 15:59; Start 01/27/18 at 10:45; Stop 01/27/18 at 18:00; Status DC Prochlorperazine Edisylate (Compazine) 5 mg PACU PRN PRN IV NAUSEA, MRX1; Start 01/27/18 at 10:45; Stop 01/27/18 at 18:00; Status DC Amiodarone HCl (Cordarone) 200 mg DAILY PO Last administered on 01/28/18at 09:13 ; Start 01/27/18 at 12:30 Aspirin (Anthony Aspirin) 325 mg DAILY PO Last administered on 01/28/18 09:13; Start 01/27/18 at 12:30; Stop 01/28/18 at 14:26; Status DC Carbamazepine (TEGretol) 200 mg BID PO Last administered on 01/28/18 20:54; Start 01/27/18 at 12:30 Carvedilol (Coreg) 12.5 mg BIDWMEALS PO Last administered on 01/28/18 17:46; Start 01/27/18 at 12:30 Vitamin B Complex/ Vitamin C (Melly-Shabbir) 1 tab DAILY PO Last administered on 09:14; Start 01/27/18 at 12:30 Furosemide (Lasix) 80 mg [id number] PO Last administered on 01/28/18 17:46; Start 01/27/18 at 12:30 Insulin Glargine (Lantus) 22 units QHS SQ Last administered on 01/28/18 21:13 ; Start 01/27/18 at 21:00 Morphine Sulfate (Ms Contin) 15 mg BID PO Last administered on 01/27/18 21:12 ; Start 01/27/18 at 12:30 Nitroglycerin (Nitrostat) 0.4 mg PRN Q5MIN PRN SL CHEST PAIN; Start 01/27/18 at 12:00 Nystatin (Nystop) 1 susanna PRN BID PRN TP SKIN BREAKDOWN; Start 01/27/18 at 12:00 Tramadol HCl (Ultram) 50 mg PRN Q4HRS PRN PO HEADACHE; Start 01/27/18 at 12:00 Non-Formulary Medication (Albuterol Sulfate (Proventil Hfa Inhaler)) 2 puff BID PRN IH FOR ASTHMA; Start 01/27/18 at 12:00; Status UNV Atorvastatin Calcium (Lipitor) 80 mg QHS PO Last administered on 01/28/18 20: 54; Start 01/27/18 at 21:00 Calcitriol (Rocaltrol) 0.25 mcg DAILY PO Last administered on 01/28/18 09:13; Start 01/27/18 at 12:30 Diltiazem HCl (Cardizem 24hr Cd) 120 mg DAILY PO Last administered on 09:13; Start 01/27/18 at 12:30 Erythromycin (E-Mycin) 250 mg BID PO Last administered on 01/28/18at 20:54; Start 01/27/18 at 21:00 Fenofibrate (Lofibra) 134 mg QHS PO Last administered on 01/28/18at 20:54; Start 01/27/18 at 21:00 Non-Formulary Medication (Fluconazole (Diflucan)) 100 mg PRN PO ; Start at 12:00; Status UNV Lidocaine (Lidoderm) 1 patch PRN DAILY PRN TD PAIN; Start 01/27/18 at 09:00 Niacin (Slo-Niacin) 500 mg QHS PO Last administered on 01/28/18 20:54; Start 01/27/18 at 21:00 Ondansetron HCl (Zofran Odt) 4 mg PRN Q6HRS PRN PO NAUSEA/VOMITING; Start 01/27 at 12:15 Miscellaneous (Lidoderm Patch Removal) 1 ea QHS MC Last administered on at 20:55; Start 01/27/18 at 21:00 Albuterol Sulfate (Ventolin Neb Soln) 2.5 mg PRN BID PRN NEB SHORTNESS OF BREATH Last administered on 01/27/18at 21:59; Start 01/27/18 at 12:30 Lidocaine HCl (Lidocaine 1% 50ml Vial) 50 ml 1X ONCE INJ Last administered on 01/27/18at 14:06; Start 01/27/18 at 12:45; Stop 01/27/18 at 12:46; Status DC Hydromorphone HCl (Dilaudid) 2 mg STK-MED ONCE .ROUTE ; Start 01/27/18 at 12:36 ; Stop 01/27/18 at 12:38; Status DC Propofol 20 ml @ As Directed STK-MED ONCE IV ; Start 01/27/18 at 12:38; Stop at 12:39; Status DC Bacitracin 42816 unit/Sodium Chloride 3,000 ml @ 0 mls/hr 1X ONCE IR ; Start 01/27/18 at 13:15; Stop 01/27/18 at 13:16; Status Cancel Dexamethasone Sodium Phosphate (Decadron) 20 mg STK-MED ONCE .ROUTE ; Start 01/27/18 at 13:11; Stop 01/27/18 at 13:12; Status DC Ondansetron HCl (Zofran) 4 mg STK-MED ONCE .ROUTE ; Start 01/27/18 at 13:11; Stop 01/27/18 at 13:12; Status DC Sevoflurane (Ultane) 30 ml STK-MED ONCE IH ; Start 01/27/18 at 13:11; Stop 01/27 at 13:12; Status DC Bacitracin (Bacitracin) 50,000 unit STK-MED ONCE IRR Last administered on at 13:58; Start 01/27/18 at 12:14; Stop 01/27/18 at 13:16; Status DC Clopidogrel Bisulfate (Plavix) 75 mg DAILYWBKFT PO Last administered on at 09:13; Start 01/28/18 at 08:00; Stop 01/28/18 at 14:28; Status DC Hydromorphone HCl (Dilaudid) 2 mg STK-MED ONCE .ROUTE ; Start 01/27/18 at 15:38 ; Stop 01/27/18 at 15:40; Status DC Gentamicin Sulfate 235 mg/ Dextrose 105.875 ml @ 105.875 mls/hr 1X ONCE IV Last administered on 01/27/18at 19:56; Start 01/27/18 at 16:00; Stop 01/27/18 at 16:59; Status DC Lactobacillus Rhamnosus (Culturelle) 1 cap BID PO Last administered on at 20:54; Start 01/27/18 at 21:00 Cefepime HCl 1 gm/ Dextrose 50 ml @ 100 mls/hr DAILY IV ; Start 01/29/18 at 09: 00; Status UNV Metronidazole 100 ml @ 100 mls/hr Q12HR IV Last administered on 01/28/18at 20: 55; Start 01/28/18 at 10:00 Cefepime HCl (Maxipime) 1 gm Q24H IVP Last administered on 01/28/18at 20:54; Start 01/28/18 at 10:00 Lidocaine HCl (Xylocaine-Mpf 2% Vial) 2 ml STK-MED ONCE .ROUTE ; Start 01/28/18 at 11:41; Stop 01/28/18 at 11:42; Status DC Sodium Chloride 1,000 ml @ 1,000 mls/hr Q1H PRN IV hypotension; Start 01/28/18 at 12:09; Stop 01/28/18 at 18:08; Status DC Info (PHARMACY MONITORING -- do not chart) 1 each PRN DAILY PRN MC SEE COMMENTS ; Start 01/28/18 at 12:15; Status UNV Info (PHARMACY MONITORING -- do not chart) 1 each PRN DAILY PRN MC SEE COMMENTS ; Start 01/28/18 at 12:15 Lidocaine HCl (Xylocaine-Mpf 2% Vial) 2 ml 1X ONCE INJ ; Start 01/28/18 at 12: 15; Stop 01/28/18 at 12:21; Status DC Ticagrelor (Brilinta) 90 mg BID PO Last administered on 01/28/18at 20:54; Start 01/28/18 at 21:00 Diphenhydramine HCl (Benadryl) 25 mg PRN Q6HRS PRN PO ITCHING; Start 01/28/18 at 14:15 Aspirin (Ecotrin) 81 mg DAILYWBKFT PO ; Start 01/29/18 at 08:00 Insulin Human Lispro (HumaLOG) 0-5 UNITS TIDWMEALS SQ Last administered on 01/28at 17:57; Start 01/28/18 at 17:00 Dextrose (Dextrose 50%-Water Syringe) 12.5 gm PRN Q15MIN PRN IV SEE COMMENTS; Start 01/28/18 at 14:45 Hydralazine HCl (Apresoline) 10 mg PRN TID PRN PO hypertension; Start 01/28/18 at 14:45 Oxycodone/ Acetaminophen (Percocet 10/325) 1 tab PRN Q4HRS PRN PO pain SEVERE; Start 01/29/18 at 07:45 Active Scripts Active Percocet 10-325 Mg Tablet (Oxycodone/Acetaminophen) 1 Each Tablet 1 Tab PO Q4HRS Brilinta (Ticagrelor) 90 Mg Tablet 90 Mg PO BID 30 Days Morphine Sulfate Er (Morphine Sulfate) 15 Mg Tablet.er 15 Mg PO BID Reported Brilinta (Ticagrelor) 90 Mg Tablet 90 Mg PO BID Lidocaine 1 Each Adh..patch 1 Each TP PRN DAILY PRN Calcitriol 0.25 Mcg Capsule 1 Cap PO DAILY Tegretol (Carbamazepine) 200 Mg Tablet 1 Tab PO BID Tramadol Hcl 50 Mg Tablet 50 Mg PO Q4HRS PRN Lantus Solostar (Insulin Glargine,Hum.rec.anlog) 100 Unit/1 Ml Insuln.pen 22 Unit SQ QHS Diflucan (Fluconazole) 100 Mg Tablet 100 Mg PO PRN Carvedilol 3.125 Mg Tablet 12.5 Mg PO BID Erythromycin (Erythromycin Base) 250 Mg Capsule.dr 250 Mg PO BID Cardizem Cd (Diltiazem Hcl) 180 Mg Cap.er.24h 120 Mg PO DAILY Amiodarone Hcl 200 Mg Tablet 1 Tab PO DAILY Nystatin 15 Gm Powder 1 Susanna TP PRN BID PRN Proventil Hfa Inhaler (Albuterol Sulfate) 6.7 Gm Hfa.aer.ad 2 Puff IH BID PRN Zofran (Ondansetron Hcl) 4 Mg Tablet 4 Mg PO Q6-8HRS PRN Nephro-Shabbir Tablet (Folic Acid/Vitamin B Comp W-C) 0.8 Mg Tablet 1 Tab PO DAILY Tricor (Fenofibrate Nanocrystallized) 145 Mg Tablet 1 Tab PO HS Lipitor (Atorvastatin Calcium) 80 Mg Tablet 80 Mg PO HS Niacin 500 Mg Tablet 500 Mg PO HS Novolog (Insulin Aspart) 100 Unit/1 Ml Cartridge 0 SQ TIDAC sliding scale Aspirin 325 Mg Tablet 325 Mg PO DAILY Furosemide 80 Mg Tablet 80 Mg PO BID Docusate Sodium 100 Mg Capsule 1 Cap PO PRN PRN Nitrostat (Nitroglycerin) 0.4 Mg Tab.subl 0.4 Mg SL PRN Q5MIN PRN Take as needed for chest pain Vitals/I & O Vital Sign - Last 24 Hours 01/28/18 01/28/18 01/28/18 01/28/18 08:00 09:13 09:13 09:13 Pulse 89 89 89 B/P (MAP) 182/72 182/72 182/72 O2 Delivery Nasal Cannula O2 Flow Rate 4.0 01/28/18 01/28/18 01/28/18 01/28/18 09:30 11:04 12:52 15:40 Temp 98.7 98.2 98.7 98.2 Pulse 89 91 Resp 18 18 B/P (MAP) 157/75 (102) 152/74 (100) Pulse Ox 96 96 O2 Delivery Room Air Room Air Room Air Room Air 01/28/18 01/28/18 01/28/18 01/28/18 17:46 17:47 19:00 20:00 Temp 98.4 98.4 Pulse 91 71 Resp 16 B/P (MAP) 152/74 124/51 (75) Pulse Ox 98 O2 Delivery Room Air Room Air Room Air 01/28/18 01/28/18 01/28/18 01/29/18 22:31 22:50 23:42 03:00 Temp 98.1 98.1 Pulse 71 73 Resp 18 18 B/P (MAP) 108/54 (72) 138/59 (85) Pulse Ox 100 97 O2 Delivery Room Air Room Air Room Air Room Air 01/29/18 07:02 O2 Delivery Nasal Cannula O2 Flow Rate 2.0 Intake and Output 01/28/18 01/28/18 01/29/18 15:00 23:00 07:00 Intake Total 370 ml Output Total 0 ml Balance 370 ml 0 ml JEREMIAS VERDUGO MD Jan 29, 2018 07:57
[2018-01-29] MEDS: CARVEDILOL 12.5 MG TABLET. PO SCH ×2 (08:00→16:25)
[2018-01-29] MEDS: ASPIRIN ENTERIC COATED 81 MG TABLET.DR. PO SCH (08:00)
[2018-01-29] MEDS: oxyCODONE/APAP 10/325 1 TAB TABLET PO PRN (08:32)
[2018-01-29] MEDS: INSULIN LISPRO 300 UNITS/3 ML INSULN.PEN. SQ SCH ×3 (08:36→16:31)
[2018-01-29] MEDS: TICAGRELOR 90 MG TABLET. PO SCH ×2 (08:37→21:05)
[2018-01-29] MEDS: AMIODARONE HCL 200 MG TABLET. PO SCH (08:38)
[2018-01-29] MEDS: LACTOBACILLUS RHAMNOSUS GG 1 CAPSULE. PO SCH ×2 (08:38→21:06)
[2018-01-29] MEDS: ERYTHROMYCIN BASE 250 MG TABLET PO SCH ×2 (08:40→21:05)
[2018-01-29] MEDS: FOLIC/VIT B COMP W-C (RENAL) TABLET. PO SCH (08:40)
[2018-01-29] MEDS: FUROSEMIDE 80 MG TABLET. PO SCH ×2 (08:40→14:00)
[2018-01-29] MEDS: MORPHINE ER 15 MG TABLET.ER PO SCH ×2 (08:40→21:05)
[2018-01-29] MEDS: CALCITRIOL 0.25 MCG CAPSULE. PO SCH (08:41)
[2018-01-29] MEDS: carBAMazepine 200 MG TABLET PO SCH ×2 (08:41→21:05)
[2018-01-29] MEDS ORDERED: CEFEPIME HCL 1 GM in IV DEXTROSE 5% 50 ML IV SCH (09:00)
--- NOTE | 2018-01-29 10:08 | PDOC ---
SUBJECTIVE ROS C/O N/V, Pain at the surgery site OBJECTIVE Vital Signs Vital Signs Date Time Temp Pulse Resp B/P (MAP) Pulse Ox O2 Delivery O2 Flow Rate FiO2 01/29/18 08:32 Nasal Cannula 2.0 01/29/18 08:18 98.8 74 16 143/62 (89) 97 98.8 I & 0 Intake and Output 01/29/18 07:00 Intake Total 370 ml Output Total 0 ml Balance 370 ml Intake Oral 370 ml Output Urine Total 0 ml PHYSICAL EXAM Physical Exam General: No acute distress HEENT:OM moist Lungs: Clear to auscultation, Non labored Heart: Regular rate, Normal S1, Normal S2 Abdomen: Soft, No tenderness, PD catheter + Extremities: Lt BKA, Rt S/P Debridement and Muscle flap Changes of CVI+ AV Shunt Rt arm Skin: (dehiscence of the proximal right common femoral incision and vein harvest site with lower extremity edema and mild cellulitis Neuro: Grossly Normal MUSCULOSKELETAL: No joint tenderness, Full range of motion without pain Gu- no hartley DIAGNOSIS/ASSESSMENT Assessment & Plan ESRD -On PD at home Was on HD switched to PD Continue HD during hospitalization Right femoral surgical site infection- s/p operative debridement with muscle flap. As per vascular she will need additional surgical debridement sometime next week Vasc Recommendations- Dual antiplatelet- on Aspirin and Brilinta On Abx - avoid PICC Anemia- received two units of PRBC yesterday intra/post op, DM- as per primary DW Pt and RN COMMENT/RELEVANT DATA Meds Current Medications Medications (Trade) Dose Ordered Sig/Martin Start Time Stop Time Status Last Admin Dose Admin Albuterol Sulfate (Ventolin Neb Soln) 2.5 mg PRN BID PRN 01/27/18 12:30 01/27/18 21:59 2.5 MG Amiodarone HCl (Cordarone) 200 mg DAILY 01/27/18 12:30 01/28/18 09:13 200 MG Aspirin (Anthony Aspirin) 325 mg DAILY 01/27/18 12:30 01/28/18 14:26 DC 01/28/18 09:13 325 MG Aspirin (Ecotrin) 81 mg DAILYWBKFT 01/29/18 08:00 Atorvastatin Calcium (Lipitor) 80 mg QHS 01/27/18 21:00 01/28/18 20:54 80 MG Bacitracin (Bacitracin) 50,000 unit STK-MED ONCE 01/27/18 12:14 01/27/18 13:16 DC 01/27/18 13:58 50,000 UNIT Bacitracin 45568 unit/Sodium Chloride 3,000 ml @ 0 mls/hr 1X ONCE 01/27/18 13:15 01/27/18 13:16 Cancel Calcitriol (Rocaltrol) 0.25 mcg DAILY 01/27/18 12:30 01/28/18 09:13 0.25 MCG Carbamazepine (TEGretol) 200 mg BID 01/27/18 12:30 01/28/18 20:54 200 MG Carvedilol (Coreg) 12.5 mg BIDWMEALS 01/27/18 12:30 01/28/18 17:46 12.5 MG Cefepime HCl (Maxipime) 1 gm Q24H 01/28/18 10:00 01/28/18 20:54 1 GM Cefepime HCl 1 gm/ Dextrose 50 ml @ 100 mls/hr DAILY 01/29/18 09:00 UNV Clopidogrel Bisulfate (Plavix) 75 mg DAILYWBKFT 01/28/18 08:00 01/28/18 14:28 DC 01/28/18 09:13 75 MG Dexamethasone Sodium Phosphate (Decadron) 20 mg STK-MED ONCE 01/27/18 13:11 01/27/18 13:12 DC Dextrose (Dextrose 50%-Water Syringe) 12.5 gm PRN Q15MIN PRN 01/28/18 14:45 Diltiazem HCl (Cardizem 24hr Cd) 120 mg DAILY 01/27/18 12:30 01/28/18 09:13 120 MG Diphenhydramine HCl (Benadryl) 25 mg PRN Q6HRS PRN 01/28/18 14:15 Erythromycin (E-Mycin) 250 mg BID 01/27/18 21:00 01/28/18 20:54 250 MG Fenofibrate (Lofibra) 134 mg QHS 01/27/18 21:00 01/28/18 20:54 134 MG Fentanyl Citrate (Fentanyl 2ml Vial) 50 mcg PRN Q5MIN PRN 01/27/18 10:45 01/27/18 18:00 DC Furosemide (Lasix) 80 mg BID92 01/27/18 12:30 01/28/18 17:46 80 MG Gentamicin Sulfate 235 mg/ Dextrose 105.875 ml @ 105.875 mls/hr 1X ONCE 01/27/18 16:00 01/27/18 16:59 DC 01/27/18 19:56 105.875 MLS/HR Hydralazine HCl (Apresoline) 10 mg PRN TID PRN 01/28/18 14:45 Hydromorphone HCl (Dilaudid) 2 mg STK-MED ONCE 01/27/18 15:38 01/27/18 15:40 DC Influenza Virus Vaccine (Afluria Trivalent [id number] Syringe) 0.5 ml ONCE ONCE 01/27/18 09:00 01/27/18 09:01 DC 01/27/18 09:00 0.5 ML Info (PHARMACY MONITORING -- do not chart) 1 each PRN DAILY PRN 01/28/18 12:15 Insulin Glargine (Lantus) 22 units QHS 01/27/18 21:00 01/28/18 21:13 22 UNITS Insulin Human Lispro (HumaLOG) 0-5 UNITS TIDWMEALS 01/28/18 17:00 01/29/18 08:36 5 UNITS Lactobacillus Rhamnosus (Culturelle) 1 cap BID 01/27/18 21:00 01/28/18 20:54 1 CAP Lidocaine (Lidoderm) 1 patch PRN DAILY PRN 01/27/18 09:00 Lidocaine HCl (Lidocaine 1% 50ml Vial) 50 ml 1X ONCE 01/27/18 12:45 01/27/18 12:46 DC 01/27/18 14:06 1 ML Lidocaine HCl (Xylocaine-Mpf 1% 2ml Vial) 2 ml 1X PRN PRN 01/27/18 10:45 01/27/18 18:00 DC Lidocaine HCl (Xylocaine-Mpf 2% Vial) 2 ml 1X ONCE 01/28/18 12:15 01/28/18 12:21 DC Metronidazole 100 ml @ 100 mls/hr Q12HR 01/28/18 10:00 01/28/18 20:55 100 MLS/HR Miscellaneous (Lidoderm Patch Removal) 1 ea QHS 01/27/18 21:00 01/28/18 20:55 1 EA Morphine Sulfate (Morphine Sulfate) 1 mg PRN Q10MIN PRN 01/27/18 10:45 01/27/18 18:00 DC 01/27/18 16:28 1 MG Morphine Sulfate (Ms Contin) 15 mg BID 01/27/18 12:30 01/27/18 21:12 15 MG Niacin (Slo-Niacin) 500 mg QHS 01/27/18 21:00 01/28/18 20:54 500 MG Nitroglycerin (Nitrostat) 0.4 mg PRN Q5MIN PRN 01/27/18 12:00 Non-Formulary Medication (Albuterol Sulfate (Proventil Hfa Inhaler)) 2 puff BID PRN 01/27/18 12:00 UNV Non-Formulary Medication (Fluconazole (Diflucan)) 100 mg PRN 01/27/18 12:00 UNV Nystatin (Nystop) 1 erich PRN BID PRN 01/27/18 12:00 Ondansetron HCl (Zofran Odt) 4 mg PRN Q6HRS PRN 01/27/18 12:15 Ondansetron HCl (Zofran) 4 mg STK-MED ONCE 01/27/18 13:11 01/27/18 13:12 DC Oxycodone/ Acetaminophen (Percocet 10/325) 1 tab PRN Q4HRS PRN 01/29/18 07:45 01/29/18 08:32 1 TAB Pharmacy Consult (C.diff Med Screen By Rx) 1 each 1X ONCE 01/27/18 01:00 01/27/18 01:01 Cancel Prochlorperazine Edisylate (Compazine) 5 mg PACU PRN PRN 01/27/18 10:45 01/27/18 18:00 DC Propofol 20 ml @ As Directed STK-MED ONCE 01/27/18 12:38 01/27/18 12:39 DC Ringer's Solution 1,000 ml @ 30 mls/hr Q24H 01/27/18 10:35 01/27/18 19:36 DC 01/27/18 10:35 30 MLS/HR Sevoflurane (Ultane) 30 ml STK-MED ONCE 01/27/18 13:11 01/27/18 13:12 DC Sodium Chloride 1,000 ml @ 1,000 mls/hr Q1H PRN 01/28/18 12:09 01/28/18 18:08 DC Ticagrelor (Brilinta) 90 mg BID 01/28/18 21:00 01/28/18 20:54 90 MG Tramadol HCl (Ultram) 50 mg PRN Q4HRS PRN 01/27/18 12:00 Vancomycin HCl (Vanco Per Pharmacy) 1 each PRN DAILY PRN 01/26/18 22:45 01/28/18 15:53 1 EACH Vancomycin HCl (Vancomycin Random Level) 1 each 1X ONCE 01/28/18 05:00 01/28/18 05:01 DC 01/28/18 05:00 1 EACH Vancomycin HCl 1.75 gm/Sodium Chloride 500 ml @ 250 mls/hr 1X ONCE 01/26/18 23:00 01/27/18 00:59 DC 01/26/18 23:53 250 MLS/HR Vitamin B Complex/ Vitamin C (Melly-Shabbir) 1 tab DAILY 01/27/18 12:30 01/28/18 09:14 1 TAB Lab Laboratory Tests Test 01/28/18 11:39 01/28/18 16:41 01/28/18 20:55 01/29/18 05:15 Glucose (Fingerstick) 234 mg/dL (70-99) 185 mg/dL (70-99) 309 mg/dL (70-99) Random Vancomycin Level 18.0 mcg/mL Test 01/29/18 07:54 Glucose (Fingerstick) 387 mg/dL (70-99) Results All relevant outside records, renal labs, imaging studies, telemetry/EKG's were reviewed. HEMANT SCHAEFER MD Jan 29, 2018 10:08
--- NOTE | 2018-01-29 11:10 | PDOC ---
Infectious Disease Note Subjective Subjective pt is feeling better ROS ROS no n/v/d/sob Vital Sign Vital Signs Vital Signs Date Time Temp Pulse Resp B/P (MAP) Pulse Ox O2 Delivery O2 Flow Rate FiO2 01/29/18 08:32 Nasal Cannula 2.0 01/29/18 08:18 98.8 74 16 143/62 (89) 97 98.8 Physical Exam PHYSICAL EXAM GENERAL: Alert, oriented female, not in distress. VITAL SIGNS: Stable HEENT: Anicteric. NECK: Supple, no JVP, no lymphadenopathy. LUNGS: Clear. HEART: S1, S2 regular. ABDOMEN: Benign. EXTREMITIES: The left lower extremity is amputated. The right lower extremity is erythematous. Postsurgical dressing not opened as extensive debridement done yesterday. NEUROLOGIC: The patient is neurologically intact. Labs Lab Laboratory Tests Test 01/28/18 11:39 01/28/18 16:41 01/28/18 20:55 01/29/18 05:15 Glucose (Fingerstick) 234 mg/dL (70-99) 185 mg/dL (70-99) 309 mg/dL (70-99) Random Vancomycin Level 18.0 mcg/mL Test 01/29/18 07:54 Glucose (Fingerstick) 387 mg/dL (70-99) Micro ANAEROBIC-AEROBIC CULTURE PENDING ANAEROBIC RES 1 PENDING AEROBIC CULT PENDING AEROBIC RES 1 PENDING GRAM STAIN Final Final report GRAM STAIN RES 1 Final Comment Moderate amount of white blood cells. GRAM STAIN RES 2 Final Comment Many gram negative rods. GRAM STAIN RES 3 Final Comment Gram positive cocci in pairs Moderate seen Performed at: - [facility], [place], [place] [id number] Screen Making Technician: NOLBERTO Mauricio MD, Phone: [phone] Objective Assessment Rt leg surgery site infection s/p I and D PAD s/p leg bypass ESRD Multiple med allergery Plan Plan of Care vanc , gent x 1 ,,, cefepime and flagyl check cultures d/w dr Reina d/w DANDY Humphrey MD Jan 29, 2018 11:10
[2018-01-29] MEDS ORDERED: PROMETHAZINE 12.5 MG SUPP.RECT. PR ONE (12:15)
[2018-01-29] MEDS ORDERED: PROMETHAZINE IM 25 MG/ML VIAL IM ONE (12:45)
[2018-01-29] MEDS ORDERED: LIDOCAINE 1%/EPI 1:100,000 20 ML VIAL. ONE (12:45)
[2018-01-29] MEDS ORDERED: HEPARIN PF 500 UNIT/5 ML DISP.SYRIN. IV ONE ×2 (12:45→14:00)
[2018-01-29] MEDS ORDERED: MIDAZOLAM HCL/PF 2 MG/2 ML VIAL. ONE (13:23)
[2018-01-29] MEDS ORDERED: MORPHINE SULFATE 10 MG/ML VIAL. ONE (13:23)
[2018-01-29] MEDS ORDERED: LIDOCAINE 1%/EPI 1:100,000 20 ML VIAL. IJ ONE (14:00)
[2018-01-29] MEDS ORDERED: MORPHINE SULFATE 10 MG/ML VIAL. IV ONE (14:00)
--- NOTE | 2018-01-29 14:29 | RAD ---
Procedure: Ultrasound and fluoroscopically guided placement of tunnel central venous catheter. 01/29/2018 2:24 PM Clinical Indication: ANTIBIOTICS/HARD STICK Sedation: Local only Fluoroscopy time: 0.3 min Dose area product:: 1 Gycm2 Consent: The procedure was explained in its entirety to the patient or the patients designated dental detail representative by a member of the treatment team, including a discussion of the risks, benefits and commonly accepted alternatives to the procedure, as well as the expected consequences of no therapy whatsoever. Discussion of the risks included, but was not limited to, those that are most frequent and those that are rare but possibly severe or life-threatening, as well as the possibility of unforeseen complications. Sterility: All elements of maximal sterile barrier technique including the use of a cap, mask, sterile gown, sterile gloves, large sterile sheet, appropriate hand hygiene, and 2% chlorhexidine for cutaneous antisepsis (or acceptable alternative antiseptic per current guidelines) were followed for this procedure. Technique and Findings: Following informed consent, the patient was prepped and draped in the usual sterile fashion. Ultrasound interrogation of the left neck revealed patency and compressibility of the left internal jugular vein. A 21-gauge micropuncture was then used to gain access to this vein under ultrasound guidance. A hard copy ultrasound image was recorded. The needle was exchanged over a wire for a sheath. A small incision was made several centimeters inferior to the right clavicle. A power line was trimmed to length, advanced from the small skin incision to the venotomy site, and then advanced through a peel-away sheath to the level of the cavoatrial junction. Catheter was found to flush and aspirate normally. Catheter was secured in place with 2-0 Prolene suture and a sterile dressing was applied. Catheter was packed with heparin per protocol. The neck dermatotomy was closed with Dermabond. No immediate complications were identified. Impression: Successful ultrasound and fluoroscopically guided placement of a left internal jugular tunneled central venous catheter
[2018-01-29] MEDS: ONDANSETRON PF 4 MG/2 ML VIAL. IV PRN (14:44)
[2018-01-29] MEDS: CEFEPIME HCL IV Push 1 GM VIAL. IVP SCH (16:24)
[2018-01-29] MEDS: VANCOMYCIN PER PHARMACY MC PRN (16:47)
[2018-01-29 17:43] LABS: HEMATOCRIT 30.3 % (36.0-47.0); RED BLOOD COUNT 3.15 x10^6/uL (3.50-5.40); RED CELL DISTRIBUTION WIDTH 19.3 % (11.5-14.5); WHITE BLOOD COUNT 13.6 x10^3/uL (4.0-11.0)
[2018-01-29] MEDS ORDERED: VANCOMYCIN 500 MG in IV NORMAL SALINE 100ML 100 ML IV ONE (18:00)
[2018-01-29] MEDS: INSULIN GLARGINE 300 UNITS/3 ML INSULN.PEN. SQ SCH (21:00)
[2018-01-29] MEDS: PATCH REMOVAL. MC SCH (21:00)
[2018-01-29] MEDS: NIACIN ER 500 MG TABLET.ER PO SCH (21:05)
[2018-01-29] MEDS: ATORVASTATIN CALCIUM 40 MG TABLET. PO SCH (21:05)
[2018-01-29] MEDS: FENOFIBRATE,MICRONIZED 134 MG CAPSULE PO SCH (21:06)
[2018-01-30] MEDS: HYDROmorphone 2 MG/ML VIAL IV PRN ×4 (02:53→23:33)
[2018-01-30 02:57] VITALS: BP 132/56
[2018-01-30 06:10] LABS: ALBUMIN 1.7 g/dL (3.4-5.0); CALCIUM 8.2 mg/dL (8.5-10.1); CREATININE 6.2 mg/dL (0.6-1.0); GFR 7.1
[2018-01-30 07:00] VITALS: BP 144/62
--- NOTE | 2018-01-30 07:23 | PDOC ---
PROGRESS NOTES Chief Complaint Chief Complaint Right groin wound infection Sepsis from Right LE cellulitis ESRD on PD History of Present Illness History of Present Illness Ms. Rosenbaum, is a 52 year old female admit with redness and leg pain acute pain to right leg with swelling. She was just discharged from the hospital recently after being admitted for cellulitis and hypocalcemia, is finishing her keflex at home and wound care as well. Culture was obtained in ED and she was noted tachycardic in the 110s with a WBC of 14.8 initially. To OR on 01/27/18 for debridement and wound vac placement. Having some pain. Admitted with right groin wound and RLE cellulitis failing outpatient therapy. Patient denies having chest pain or palpitations. Currently she reports her pain is a 6 out of 10 on the pain scale, she has placed on ABD pad in her groin to prevent abrasions with the wound vac She is now down to 2L NCO2, but feels she is breathing better while sitting in bed today. HTN still difficult to control despite labetalol, will add prn oral hydralazine as well and glucose up today. Today is worried about constipation. She lost IV access now s/p PICC line. A/P: Right groin wound - cultures obtained polymicrobial, antibiotics, to OR. Dressing changes per surgery. Back to OR 02/01. Hypoxia - likely 2/2 fluid overload with poor PD session. Wean O2 as tolerated Sepsis from cellulitis - on admission, started on empiric antibiotics and was given appropriate fluids, likely still a little overloaded from fluids, however , sepsis has improved now RLE cellulitis - swelling looks a bit improved, cont antibiotics cefepime and flagyl. Wound vac intact. WBC coming down ESRD on PD - consult nephrology, she does use HD occasionally, has been using 4 bags during day as she has trouble at night Diabetes with Hyperglycemia - will place on sliding scale insulin CAD with HTN - managed on meds, will add prn labetalol and hydralazine Severe protein calorie malnutrition - albumin 1.7, will add renal supplements for wound healing acceleration Constipation - Added stool softeners Access - picc left sided Vitals Vitals Vital Signs Date Time Temp Pulse Resp B/P (MAP) Pulse Ox O2 Delivery O2 Flow Rate FiO2 01/30/18 03:48 98 Room Air 2.0 01/30/18 02:57 97.5 75 19 132/56 (81) 97.5 Physical Exam Physical Exam GENERAL: Alert, oriented female, not in distress. VITAL SIGNS: Stable HEENT: Anicteric. NECK: Supple, no JVP, no lymphadenopathy. LUNGS: Clear. HEART: S1, S2 regular. ABDOMEN: Benign. EXTREMITIES: The left lower extremity is amputated. The right lower extremity is erythematous. Postsurgical dressing not opened as extensive debridement done yesterday. NEUROLOGIC: The patient is neurologically intact. General: Alert, Oriented X3, Cooperative Heart: Regular rate, Normal S1, Normal S2 Lungs: Clear, Wheezing Abdomen: Normal bowel sounds, Soft, No tenderness, Other (PD cath clean dry and intact) Extremities: Other (RLE red along staple line with swollen red foot and right groin open wound, foul smelling. LLE BKA clean. RUE fistula with good bruit) Skin: Other (dehiscence of the proximal right common femoral incision and vein harvest site with lower extremity edema and mild cellulitis) Labs LABS Laboratory Tests Test 01/29/18 07:54 01/29/18 11:02 01/29/18 16:20 01/29/18 20:05 Glucose (Fingerstick) 387 mg/dL (70-99) 285 mg/dL (70-99) 147 mg/dL (70-99) 139 mg/dL (70-99) Test 01/30/18 04:55 Sodium Level 141 mmol/L (136-145) Potassium Level 4.0 mmol/L (3.5-5.1) Chloride Level 100 mmol/L (98-107) Carbon Dioxide Level 32 mmol/L (21-32) Anion Gap 9 (6-14) Blood Urea Nitrogen 49 mg/dL (7-20) Creatinine 6.2 mg/dL (0.6-1.0) Estimated GFR (Cockcroft-Gault) 7.1 Glucose Level 141 mg/dL (70-99) Calcium Level 8.2 mg/dL (8.5-10.1) Phosphorus Level 6.0 mg/dL (2.6-4.7) Albumin 1.7 g/dL (3.4-5.0) Assessment and Plan Assessmemt and Plan Problems Medical Problems: (1) Chronic renal failure Status: Acute Comment Review of Relevant I have reviewed the following items bert (where applicable) has been applied. Labs Laboratory Tests Test 01/28/18 07:46 01/28/18 11:39 01/28/18 16:41 01/28/18 20:55 Glucose (Fingerstick) 225 mg/dL (70-99) 234 mg/dL (70-99) 185 mg/dL (70-99) 309 mg/dL (70-99) Test 01/29/18 05:15 01/29/18 07:54 01/29/18 11:02 01/29/18 16:20 White Blood Count 13.6 x10^3/uL (4.0-11.0) Red Blood Count 3.15 x10^6/uL (3.50-5.40) Hemoglobin 10.0 g/dL (12.0-15.5) Hematocrit 30.3 % (36.0-47.0) Mean Corpuscular Volume 96 fL (79-100) Mean Corpuscular Hemoglobin 32 pg (25-35) Mean Corpuscular Hemoglobin Concent 33 g/dL (31-37) Red Cell Distribution Width 19.3 % (11.5-14.5) Platelet Count 358 x10^3/uL (140-400) Random Vancomycin Level 18.0 mcg/mL Glucose (Fingerstick) 387 mg/dL (70-99) 285 mg/dL (70-99) 147 mg/dL (70-99) Test 01/29/18 20:05 01/30/18 04:55 Glucose (Fingerstick) 139 mg/dL (70-99) Sodium Level 141 mmol/L (136-145) Potassium Level 4.0 mmol/L (3.5-5.1) Chloride Level 100 mmol/L (98-107) Carbon Dioxide Level 32 mmol/L (21-32) Anion Gap 9 (6-14) Blood Urea Nitrogen 49 mg/dL (7-20) Creatinine 6.2 mg/dL (0.6-1.0) Estimated GFR (Cockcroft-Gault) 7.1 Glucose Level 141 mg/dL (70-99) Calcium Level 8.2 mg/dL (8.5-10.1) Phosphorus Level 6.0 mg/dL (2.6-4.7) Albumin 1.7 g/dL (3.4-5.0) Laboratory Tests Test 01/29/18 07:54 01/29/18 11:02 01/29/18 16:20 01/29/18 20:05 Glucose (Fingerstick) 387 mg/dL (70-99) 285 mg/dL (70-99) 147 mg/dL (70-99) 139 mg/dL (70-99) Test 01/30/18 04:55 Sodium Level 141 mmol/L (136-145) Potassium Level 4.0 mmol/L (3.5-5.1) Chloride Level 100 mmol/L (98-107) Carbon Dioxide Level 32 mmol/L (21-32) Anion Gap 9 (6-14) Blood Urea Nitrogen 49 mg/dL (7-20) Creatinine 6.2 mg/dL (0.6-1.0) Estimated GFR (Cockcroft-Gault) 7.1 Glucose Level 141 mg/dL (70-99) Calcium Level 8.2 mg/dL (8.5-10.1) Phosphorus Level 6.0 mg/dL (2.6-4.7) Albumin 1.7 g/dL (3.4-5.0) Microbiology 01/26/18 Blood Culture - Preliminary, Resulted NO GROWTH AFTER 3 DAYS 01/27/18 Anaerobic/Aerobic Culture - Preliminary, Resulted 01/27/18 Anaerobic Culture Result 1 (ROSALIND) - Preliminary, Resulted 01/27/18 Aerobic Culture - Preliminary, Resulted 01/27/18 Aerobic Culture Result 1 (ROSALIND) - Preliminary, Resulted 01/27/18 Gram Stain - Final, Resulted 01/27/18 Gram Stain Result 1 (ROSALIND) - Final, Resulted 01/27/18 Gram Stain Result 2 (ROSALIND) - Final, Resulted Medications Current Medications Hydromorphone HCl (Dilaudid) 2 mg 1X ONCE IV Last administered on 01/26/18at 22 :39; Start 01/26/18 at 22:00; Stop 01/26/18 at 22:01; Status DC Vancomycin HCl (Vanco Per Pharmacy) 1 each PRN DAILY PRN MC SEE COMMENTS Last administered on 01/29/18at 16:47; Start 01/26/18 at 22:45 Vancomycin HCl 1.75 gm/Sodium Chloride 500 ml @ 250 mls/hr 1X ONCE IV Last administered on 01/26/18at 23:53; Start 01/26/18 at 23:00; Stop 01/27/18 at 00:59 ; Status DC Ondansetron HCl (Zofran) 4 mg PRN Q8HRS PRN IV NAUSEA/VOMITING 1ST CHOICE; Start 01/26/18 at 23:15; Stop 01/27/18 at 23:14; Status DC Sodium Chloride 1,000 ml @ 75 mls/hr [id number] IV Last administered on at 00:39; Start 01/26/18 at 23:30; Stop 01/27/18 at 23:29; Status DC Pharmacy Consult (C.diff Med Screen By Rx) 1 each 1X ONCE MC ; Start 01/27/18 at 01:00; Stop 01/27/18 at 01:01; Status Cancel Influenza Virus Vaccine (Afluria Trivalent [id number] Syringe) 0.5 ml ONCE ONCE VAX IM Last administered on 01/27/18at 09:00; Start 01/27/18 at 09:00; Stop 01/27/18 at 09:01; Status DC Vancomycin HCl (Vancomycin Random Level) 1 each 1X ONCE MC Last administered on 01/28/18at 05:00; Start 01/28/18 at 05:00; Stop 01/28/18 at 05:01; Status DC Hydromorphone HCl (Dilaudid) 1 mg PRN Q3HRS PRN IV SEVERE PAIN Last administered on 01/30/18at 02:53; Start 01/27/18 at 03:30 Ondansetron HCl (Zofran) 4 mg PRN Q6HRS PRN IV NAUSEA/VOMITING; Start 01/27/18 at 10:45; Stop 01/27/18 at 18:00; Status DC Fentanyl Citrate (Fentanyl 2ml Vial) 25 mcg PRN Q5MIN PRN IV MILD PAIN; Start 01/27/18 at 10:45; Stop 01/27/18 at 18:00; Status DC Fentanyl Citrate (Fentanyl 2ml Vial) 50 mcg PRN Q5MIN PRN IV MODERATE TO SEVERE PAIN; Start 01/27/18 at 10:45; Stop 01/27/18 at 18:00; Status DC Morphine Sulfate (Morphine Sulfate) 1 mg PRN Q10MIN PRN IV SEVERE PAIN Last administered on 01/27/18at 16:28; Start 01/27/18 at 10:45; Stop 01/27/18 at 18:00 ; Status DC Ringer's Solution 1,000 ml @ 30 mls/hr Q24H IV Last administered on 01/27/18at 10:35; Start 01/27/18 at 10:35; Stop 01/27/18 at 19:36; Status DC Lidocaine HCl (Xylocaine-Mpf 1% 2ml Vial) 2 ml 1X PRN PRN ID IV START; Start 01/27/18 at 10:45; Stop 01/27/18 at 18:00; Status DC Hydromorphone HCl (Dilaudid) 0.5 mg PRN Q10MIN PRN IV SEV PAIN, Second choice Last administered on 01/27/18at 15:59; Start 01/27/18 at 10:45; Stop 01/27/18 at 18:00; Status DC Prochlorperazine Edisylate (Compazine) 5 mg PACU PRN PRN IV NAUSEA, MRX1; Start 01/27/18 at 10:45; Stop 01/27/18 at 18:00; Status DC Amiodarone HCl (Cordarone) 200 mg DAILY PO Last administered on 01/28/18 09:13 ; Start 01/27/18 at 12:30 Aspirin (Ocean Aero Aspirin) 325 mg DAILY PO Last administered on 01/28/18 09:13; Start 01/27/18 at 12:30; Stop 01/28/18 at 14:26; Status DC Carbamazepine (TEGretol) 200 mg BID PO Last administered on 01/29/18 21:05; Start 01/27/18 at 12:30 Carvedilol (Coreg) 12.5 mg BIDWMEALS PO Last administered on 01/29/18 16:25; Start 01/27/18 at 12:30 Vitamin B Complex/ Vitamin C (Melly-Shabbir) 1 tab DAILY PO Last administered on 09:14; Start 01/27/18 at 12:30 Furosemide (Lasix) 80 mg [id number] PO Last administered on 01/28/18 17:46; Start 01/27/18 at 12:30 Insulin Glargine (Lantus) 22 units QHS SQ Last administered on 01/28/18 21:13 ; Start 01/27/18 at 21:00 Morphine Sulfate (Ms Contin) 15 mg BID PO Last administered on 01/29/18 21:05 ; Start 01/27/18 at 12:30 Nitroglycerin (Nitrostat) 0.4 mg PRN Q5MIN PRN SL CHEST PAIN; Start 01/27/18 at 12:00 Nystatin (Nystop) 1 susanna PRN BID PRN TP SKIN BREAKDOWN; Start 01/27/18 at 12:00 Tramadol HCl (Ultram) 50 mg PRN Q4HRS PRN PO HEADACHE; Start 01/27/18 at 12:00 Non-Formulary Medication (Albuterol Sulfate (Proventil Hfa Inhaler)) 2 puff BID PRN IH FOR ASTHMA; Start 01/27/18 at 12:00; Status UNV Atorvastatin Calcium (Lipitor) 80 mg QHS PO Last administered on 01/29/18at 21: 05; Start 01/27/18 at 21:00 Calcitriol (Rocaltrol) 0.25 mcg DAILY PO Last administered on 01/28/18at 09:13; Start 01/27/18 at 12:30 Diltiazem HCl (Cardizem 24hr Cd) 120 mg DAILY PO Last administered on at 09:13; Start 01/27/18 at 12:30 Erythromycin (E-Mycin) 250 mg BID PO Last administered on 01/29/18at 21:05; Start 01/27/18 at 21:00 Fenofibrate (Lofibra) 134 mg QHS PO Last administered on 01/29/18at 21:06; Start 01/27/18 at 21:00 Non-Formulary Medication (Fluconazole (Diflucan)) 100 mg PRN PO ; Start at 12:00; Status UNV Lidocaine (Lidoderm) 1 patch PRN DAILY PRN TD PAIN; Start 01/27/18 at 09:00 Niacin (Slo-Niacin) 500 mg QHS PO Last administered on 01/29/18at 21:05; Start 01/27/18 at 21:00 Ondansetron HCl (Zofran Odt) 4 mg PRN Q6HRS PRN PO NAUSEA/VOMITING; Start 01/27 at 12:15 Miscellaneous (Lidoderm Patch Removal) 1 ea QHS MC Last administered on at 21:00; Start 01/27/18 at 21:00 Albuterol Sulfate (Ventolin Neb Soln) 2.5 mg PRN BID PRN NEB SHORTNESS OF BREATH Last administered on 01/27/18at 21:59; Start 01/27/18 at 12:30 Lidocaine HCl (Lidocaine 1% 50ml Vial) 50 ml 1X ONCE INJ Last administered on 01/27/18at 14:06; Start 01/27/18 at 12:45; Stop 01/27/18 at 12:46; Status DC Hydromorphone HCl (Dilaudid) 2 mg STK-MED ONCE .ROUTE ; Start 01/27/18 at 12:36 ; Stop 01/27/18 at 12:38; Status DC Propofol 20 ml @ As Directed STK-MED ONCE IV ; Start 01/27/18 at 12:38; Stop at 12:39; Status DC Bacitracin 47959 unit/Sodium Chloride 3,000 ml @ 0 mls/hr 1X ONCE IR ; Start 01/27/18 at 13:15; Stop 01/27/18 at 13:16; Status Cancel Dexamethasone Sodium Phosphate (Decadron) 20 mg STK-MED ONCE .ROUTE ; Start 01/27/18 at 13:11; Stop 01/27/18 at 13:12; Status DC Ondansetron HCl (Zofran) 4 mg STK-MED ONCE .ROUTE ; Start 01/27/18 at 13:11; Stop 01/27/18 at 13:12; Status DC Sevoflurane (Ultane) 30 ml STK-MED ONCE IH ; Start 01/27/18 at 13:11; Stop 01/27 at 13:12; Status DC Bacitracin (Bacitracin) 50,000 unit STK-MED ONCE IRR Last administered on at 13:58; Start 01/27/18 at 12:14; Stop 01/27/18 at 13:16; Status DC Clopidogrel Bisulfate (Plavix) 75 mg DAILYWBKFT PO Last administered on at 09:13; Start 01/28/18 at 08:00; Stop 01/28/18 at 14:28; Status DC Hydromorphone HCl (Dilaudid) 2 mg STK-MED ONCE .ROUTE ; Start 01/27/18 at 15:38 ; Stop 01/27/18 at 15:40; Status DC Gentamicin Sulfate 235 mg/ Dextrose 105.875 ml @ 105.875 mls/hr 1X ONCE IV Last administered on 01/27/18at 19:56; Start 01/27/18 at 16:00; Stop 01/27/18 at 16:59; Status DC Lactobacillus Rhamnosus (Culturelle) 1 cap BID PO Last administered on at 21:06; Start 01/27/18 at 21:00 Cefepime HCl 1 gm/ Dextrose 50 ml @ 100 mls/hr DAILY IV ; Start 01/29/18 at 09: 00; Status UNV Metronidazole 100 ml @ 100 mls/hr Q12HR IV Last administered on 01/29/18at 21: 04; Start 01/28/18 at 10:00 Cefepime HCl (Maxipime) 1 gm Q24H IVP Last administered on 01/29/18at 16:24; Start 01/28/18 at 10:00 Lidocaine HCl (Xylocaine-Mpf 2% Vial) 2 ml STK-MED ONCE .ROUTE ; Start 01/28/18 at 11:41; Stop 01/28/18 at 11:42; Status DC Sodium Chloride 1,000 ml @ 1,000 mls/hr Q1H PRN IV hypotension; Start 01/28/18 at 12:09; Stop 01/28/18 at 18:08; Status DC Info (PHARMACY MONITORING -- do not chart) 1 each PRN DAILY PRN MC SEE COMMENTS ; Start 01/28/18 at 12:15; Status UNV Info (PHARMACY MONITORING -- do not chart) 1 each PRN DAILY PRN MC SEE COMMENTS ; Start 01/28/18 at 12:15 Lidocaine HCl (Xylocaine-Mpf 2% Vial) 2 ml 1X ONCE INJ ; Start 01/28/18 at 12: 15; Stop 01/28/18 at 12:21; Status DC Ticagrelor (Brilinta) 90 mg BID PO Last administered on 01/29/18at 21:05; Start 01/28/18 at 21:00 Diphenhydramine HCl (Benadryl) 25 mg PRN Q6HRS PRN PO ITCHING; Start 01/28/18 at 14:15 Aspirin (Ecotrin) 81 mg DAILYWBKFT PO ; Start 01/29/18 at 08:00 Insulin Human Lispro (HumaLOG) 0-5 UNITS TIDWMEALS SQ Last administered on 01/29at 12:25; Start 01/28/18 at 17:00 Dextrose (Dextrose 50%-Water Syringe) 12.5 gm PRN Q15MIN PRN IV SEE COMMENTS; Start 01/28/18 at 14:45 Hydralazine HCl (Apresoline) 10 mg PRN TID PRN PO hypertension; Start 01/28/18 at 14:45 Oxycodone/ Acetaminophen (Percocet 10/325) 1 tab PRN Q4HRS PRN PO pain SEVERE Last administered on 01/29/18at 08:32; Start 01/29/18 at 07:45 Promethazine HCl (Phenergan Supp) 12.5 mg 1X ONCE WA ; Start 01/29/18 at 12:15 ; Stop 01/29/18 at 12:36; Status DC Promethazine HCl (Phenergan Im) 12.5 mg 1X ONCE IM ; Start 01/29/18 at 12:45; Stop 01/29/18 at 12:46; Status DC Lidocaine/ Epinephrine (LIDOCAINE 1%-EPI 1:100,000 Multi-Dose) 20 ml STK-MED ONCE .ROUTE ; Start 01/29/18 at 12:45; Stop 01/29/18 at 12:47; Status DC Heparin Sodium (Porcine) (Hep Lock Adult) 500 unit STK-MED ONCE IV ; Start 01/29 at 12:45; Stop 01/29/18 at 12:47; Status DC Morphine Sulfate (Morphine Sulfate) 10 mg STK-MED ONCE .ROUTE ; Start 01/29/18 at 13:23; Stop 01/29/18 at 13:25; Status DC Midazolam HCl (Versed) 2 mg STK-MED ONCE .ROUTE ; Start 01/29/18 at 13:23; Stop 01/29/18 at 13:25; Status DC Morphine Sulfate (Morphine Sulfate) 1 mg PRN Q10MIN PRN IV SEVERE PAIN; Start 02/01/18 at 07:00; Stop 02/02/18 at 06:59 Ringer's Solution 1,000 ml @ 30 mls/hr Q24H IV ; Start 02/01/18 at 07:00; Stop 02/01/18 at 18:59 Lidocaine HCl (Xylocaine-Mpf 1% 2ml Vial) 2 ml PRN 1X PRN ID PRIOR TO IV START ; Start 02/01/18 at 07:00; Stop 02/02/18 at 06:59 Hydromorphone HCl (Dilaudid) 0.5 mg PRN Q10MIN PRN IV SEV PAIN, Second choice; Start 02/01/18 at 07:00; Stop 02/02/18 at 06:59 Prochlorperazine Edisylate (Compazine) 5 mg PACU PRN PRN IV NAUSEA, MRX1; Start 02/01/18 at 07:00; Stop 02/02/18 at 06:59 Lidocaine/ Epinephrine (LIDOCAINE 1%-EPI 1:100,000 Multi-Dose) 8 ml 1X ONCE IJ Last administered on 01/29/18at 14:01; Start 01/29/18 at 14:00; Stop 01/29/18 at 14:17; Status DC Heparin Sodium (Porcine) (Hep Lock Adult) 500 unit 1X ONCE IV Last administered on 01/29/18at 14:04; Start 01/29/18 at 14:00; Stop 01/29/18 at 14:17 ; Status DC Morphine Sulfate (Morphine Sulfate) 5 mg 1X ONCE IV Last administered on at 14:01; Start 01/29/18 at 14:00; Stop 01/29/18 at 14:17; Status DC Ondansetron HCl (Zofran) 4 mg PRN Q6HRS PRN IV NAUSEA/VOMITING Last administered on 01/29/18at 14:44; Start 01/29/18 at 14:45 Vancomycin HCl 500 mg/Sodium Chloride 100 ml @ 100 mls/hr 1X ONCE IV Last administered on 01/29/18at 21:04; Start 01/29/18 at 18:00; Stop 01/29/18 at 18:59 ; Status DC Active Scripts Active Percocet 10-325 Mg Tablet (Oxycodone/Acetaminophen) 1 Each Tablet 1 Tab PO Q4HRS Brilinta (Ticagrelor) 90 Mg Tablet 90 Mg PO BID 30 Days Morphine Sulfate Er (Morphine Sulfate) 15 Mg Tablet.er 15 Mg PO BID Reported Brilinta (Ticagrelor) 90 Mg Tablet 90 Mg PO BID Lidocaine 1 Each Adh..patch 1 Each TP PRN DAILY PRN Calcitriol 0.25 Mcg Capsule 1 Cap PO DAILY Tegretol (Carbamazepine) 200 Mg Tablet 1 Tab PO BID Tramadol Hcl 50 Mg Tablet 50 Mg PO Q4HRS PRN Lantus Solostar (Insulin Glargine,Hum.rec.anlog) 100 Unit/1 Ml Insuln.pen 22 Unit SQ QHS Diflucan (Fluconazole) 100 Mg Tablet 100 Mg PO PRN Carvedilol 3.125 Mg Tablet 12.5 Mg PO BID Erythromycin (Erythromycin Base) 250 Mg Capsule.dr 250 Mg PO BID Cardizem Cd (Diltiazem Hcl) 180 Mg Cap.er.24h 120 Mg PO DAILY Amiodarone Hcl 200 Mg Tablet 1 Tab PO DAILY Nystatin 15 Gm Powder 1 Susanna TP PRN BID PRN Proventil Hfa Inhaler (Albuterol Sulfate) 6.7 Gm Hfa.aer.ad 2 Puff IH BID PRN Zofran (Ondansetron Hcl) 4 Mg Tablet 4 Mg PO Q6-8HRS PRN Nephro-Shabbir Tablet (Folic Acid/Vitamin B Comp W-C) 0.8 Mg Tablet 1 Tab PO DAILY Tricor (Fenofibrate Nanocrystallized) 145 Mg Tablet 1 Tab PO HS Lipitor (Atorvastatin Calcium) 80 Mg Tablet 80 Mg PO HS Niacin 500 Mg Tablet 500 Mg PO HS Novolog (Insulin Aspart) 100 Unit/1 Ml Cartridge 0 SQ TIDAC sliding scale Aspirin 325 Mg Tablet 325 Mg PO DAILY Furosemide 80 Mg Tablet 80 Mg PO BID Docusate Sodium 100 Mg Capsule 1 Cap PO PRN PRN Nitrostat (Nitroglycerin) 0.4 Mg Tab.subl 0.4 Mg SL PRN Q5MIN PRN Take as needed for chest pain Vitals/I & O Vital Sign - Last 24 Hours 01/29/18 01/29/18 01/29/18 01/29/18 08:00 08:18 08:32 09:32 Temp 98.8 98.8 Pulse 74 Resp 16 B/P (MAP) 143/62 (89) Pulse Ox 97 O2 Delivery Room Air Nasal Cannula Nasal Cannula Nasal Cannula O2 Flow Rate 2.0 2.0 2.0 2.0 01/29/18 01/29/18 01/29/18 01/29/18 11:00 14:01 14:04 14:31 Temp 98.2 98.2 Pulse 74 89 Resp 16 14 14 B/P (MAP) 141/48 (79) Pulse Ox 100 95 95 O2 Delivery Room Air Nasal Cannula Nasal Cannula Nasal Cannula O2 Flow Rate 2.0 2.0 2.0 01/29/18 01/29/18 01/29/18 01/29/18 15:00 16:07 16:25 19:00 Temp 98.1 98.1 98.5 98.1 98.1 98.5 Pulse 71 71 71 75 Resp 16 16 B/P (MAP) 128/54 (78) 128/54 (78) 128/54 119/53 (75) Pulse Ox 100 100 95 O2 Delivery Room Air Room Air 01/29/18 01/29/18 01/29/18 01/29/18 20:00 21:05 21:06 22:36 Temp 97.7 97.7 Pulse 73 Resp 18 B/P (MAP) 136/53 (80) Pulse Ox 95 95 100 O2 Delivery Room Air Room Air Room Air Room Air O2 Flow Rate 2.0 2.0 2.0 01/30/18 01/30/18 01/30/18 01/30/18 01:05 02:53 02:57 03:48 Temp 97.5 97.5 Pulse 75 Resp 19 B/P (MAP) 132/56 (81) Pulse Ox 100 100 98 98 O2 Delivery Room Air Room Air Room Air Room Air O2 Flow Rate 2.0 2.0 2.0 Intake and Output 01/29/18 01/29/18 01/30/18 15:00 23:00 07:00 Output Total 350 ml 0 ml Balance -350 ml 0 ml JEREMIAS VERDUGO MD Jan 30, 2018 07:23
[2018-01-30] MEDS: INSULIN LISPRO 300 UNITS/3 ML INSULN.PEN. SQ SCH ×3 (08:00→17:00)
[2018-01-30] MEDS: ERYTHROMYCIN BASE 250 MG TABLET PO SCH ×2 (09:32→20:35)
[2018-01-30] MEDS: ASPIRIN ENTERIC COATED 81 MG TABLET.DR. PO SCH (09:32)
[2018-01-30] MEDS: LACTOBACILLUS RHAMNOSUS GG 1 CAPSULE. PO SCH ×2 (09:32→20:36)
[2018-01-30] MEDS: CALCITRIOL 0.25 MCG CAPSULE. PO SCH (09:32)
[2018-01-30] MEDS: FOLIC/VIT B COMP W-C (RENAL) TABLET. PO SCH (09:32)
[2018-01-30] MEDS: MORPHINE ER 15 MG TABLET.ER PO SCH ×2 (09:33→20:40)
[2018-01-30] MEDS: AMIODARONE HCL 200 MG TABLET. PO SCH (09:33)
[2018-01-30] MEDS: carBAMazepine 200 MG TABLET PO SCH ×2 (09:33→20:40)
[2018-01-30] MEDS: CARVEDILOL 12.5 MG TABLET. PO SCH ×2 (09:34→20:40)
[2018-01-30] MEDS: TICAGRELOR 90 MG TABLET. PO SCH ×2 (09:34→20:36)
[2018-01-30] MEDS: FUROSEMIDE 80 MG TABLET. PO SCH ×2 (09:34→14:19)
--- NOTE | 2018-01-30 10:49 | PDOC ---
Provider Note Provider Note S: pt complains of pain O: vss, afebrile mild drainage from right groin wound vac Hgb 10 yesterday A: stable P: check cbc today for right groin wound debridement with vac change on Thursday will hold PT/OT for now MAGDA ARIAS II, MD Jan 30, 2018 10:49
[2018-01-30 11:00] VITALS: BP 132/57
[2018-01-30 11:01] LABS: HEMATOCRIT 28.3 % (36.0-47.0); HEMOGLOBIN 9.4 g/dL (12.0-15.5); RED BLOOD COUNT 2.99 x10^6/uL (3.50-5.40); WHITE BLOOD COUNT 12.7 x10^3/uL (4.0-11.0)
[2018-01-30] MEDS: CEFEPIME HCL IV Push 1 GM VIAL. IVP SCH (12:23)
--- NOTE | 2018-01-30 12:23 | PDOC ---
Infectious Disease Note Subjective Subjective Patient says her right leg is less red but is still swollen and painful Episode N/V last night Denies F/C/S/D ROS ROS per HPI otherwise neg Vital Sign Vital Signs Vital Signs Date Time Temp Pulse Resp B/P (MAP) Pulse Ox O2 Delivery O2 Flow Rate FiO2 01/30/18 09:34 78 144/62 01/30/18 09:33 18 100 Room Air 2.0 01/30/18 07:00 97.9 97.9 Physical Exam PHYSICAL EXAM GENERAL: Propped up in bed, alert, conversing HEENT: Oral cavity clear NECK: Supple LUNGS: Clear. HEART: S1, S2 regular. ABDOMEN: Soft, NT EXTREMITIES: Left BKA. RLE edema with wound vac in place . NEUROLOGIC: Alert and responds appropriately Tunnelled RIJ (01/29) Labs Lab Laboratory Tests Test 01/29/18 16:20 01/29/18 20:05 01/30/18 04:55 01/30/18 08:09 Glucose (Fingerstick) 147 mg/dL (70-99) 139 mg/dL (70-99) 124 mg/dL (70-99) White Blood Count 12.7 x10^3/uL (4.0-11.0) Red Blood Count 2.99 x10^6/uL (3.50-5.40) Hemoglobin 9.4 g/dL (12.0-15.5) Hematocrit 28.3 % (36.0-47.0) Mean Corpuscular Volume 95 fL (79-100) Mean Corpuscular Hemoglobin 32 pg (25-35) Mean Corpuscular Hemoglobin Concent 33 g/dL (31-37) Red Cell Distribution Width 18.0 % (11.5-14.5) Platelet Count 343 x10^3/uL (140-400) Sodium Level 141 mmol/L (136-145) Potassium Level 4.0 mmol/L (3.5-5.1) Chloride Level 100 mmol/L (98-107) Carbon Dioxide Level 32 mmol/L (21-32) Anion Gap 9 (6-14) Blood Urea Nitrogen 49 mg/dL (7-20) Creatinine 6.2 mg/dL (0.6-1.0) Estimated GFR (Cockcroft-Gault) 7.1 Glucose Level 141 mg/dL (70-99) Calcium Level 8.2 mg/dL (8.5-10.1) Phosphorus Level 6.0 mg/dL (2.6-4.7) Albumin 1.7 g/dL (3.4-5.0) Micro Klebsiella pneumoniae 4+ ANTIMICROBIAL SUSCEPTIBILITY Final Comment S = Susceptible; I = Intermediate; R = Resistant P = Positive; N = Negative MICS are expressed in micrograms per mL Antibiotic RSLT#1 RSLT#2 RSLT#3 RSLT#4 Amoxicillin/Clavulanic Acid S<=2 Ampicillin R>=32 Cefepime S<=0.12 Ceftriaxone S<=0.25 Cefuroxime S =4 Ciprofloxacin S =1 Ertapenem S<=0.12 Gentamicin S<=1 Imipenem S<=0.25 Levofloxacin S =1 Meropenem S<=0.25 Piperacillin/Tazobactam S<=4 Tetracycline S<=1 CONTINUED ON NEXT PAGE RUN DATE: 01/30/18 PAGE 2 RUN TIME: 1416 [facility] [address] [place] [address] Edward Kent M.D., [employer] SPEC: [id number] PATIENT: JAMAL BOSE [id number] ( Continued) Procedure Result ANTIMICROBIAL SUSCEPTIBILITY Final (continued) Tobramycin S<=1 Trimethoprim/Sulfa S<=20 01/26/18 Blood Culture - Preliminary, Resulted NO GROWTH AFTER 3 DAYS 01/27 ANAEROBIC RES 1 Preliminary No anaerobes recovered in 24 hours. AEROBIC RES 1 Preliminary Gram negative rods 01/26 AEROBIC RES 1 Preliminary Mixed site chinedu. GRAM STAIN RES 2 Final Many gram negative rods. GRAM STAIN RES 3 Final Gram positive cocci in pairs Objective Assessment Right leg surgery site infection s/p excisional debridement; muscle flap & wound VAC placement on 01/[address] Reina. Klebsiella PAD s/p leg bypass on 01/06 ESRD Multiple antibiotic allergies Amiodarone therapy h/o VRE, MRSA, c. diff Plan Plan of Care vanc, cefepime and Flagyl -gent x 1 on 01/27 Random Vanc trough 18.0 Probiotics f/u cultures Pain management per primary Further debridement and wound vac change on Thursday Supportive care Attending Co-Sign Attending Co-Sign The patient was seen and interviewed as well as examined at the bedside. The chart was reviewed. The case was discussed. Agree with the plan of care. KYLEIGH QUEEN APRN Jan 30, 2018 12:23 ALBERTO NAVA MD Jan 30, 2018 15:35
[2018-01-30] MEDS ORDERED: IV NORMAL SALINE 1000ML BAG 1,000 ML IV PRN ×2 (13:09)
[2018-01-30] MEDS ORDERED: 0.9 % SODIUM CHLORIDE 10 ML DISP.SYRIN. IV PRN ×2 (13:15)
[2018-01-30] MEDS ORDERED: DIALYSIS PATIENT. MC PRN ×2 (13:15)
[2018-01-30] MEDS ORDERED: LIDOCAINE 1% Multi-Dose 50 ML VIAL. INJ ONE (15:45)
[2018-01-30] MEDS: VANCOMYCIN PER PHARMACY MC PRN (16:30)
--- NOTE | 2018-01-30 16:43 | PDOC ---
SUBJECTIVE ROS c/o back hurting OBJECTIVE Vital Signs Vital Signs Date Time Temp Pulse Resp B/P (MAP) Pulse Ox O2 Delivery O2 Flow Rate FiO2 01/30/18 13:35 18 100 Room Air 2.0 01/30/18 11:00 97.9 75 132/57 (82) 97.9 I & 0 Intake and Output 01/30/18 07:00 Output Total 350 ml Balance -350 ml Output Urine Total 0 ml Stool Total 0 ml Oral Regurgitation 350 ml PHYSICAL EXAM Physical Exam General: No acute distress HEENT:OM moist Lungs: Clear to auscultation, Non labored Heart: Regular rate, Normal S1, Normal S2 Abdomen: Soft, No tenderness, PD catheter + Extremities: Lt BKA, Rt S/P Debridement and Muscle flap Changes of CVI+ AV Shunt Rt arm Skin: (dehiscence of the proximal right common femoral incision and vein harvest site with lower extremity edema and mild cellulitis Neuro: Grossly Normal MUSCULOSKELETAL: No joint tenderness, Full range of motion without pain Gu- no hartley DIAGNOSIS/ASSESSMENT Assessment & Plan ESRD -On PD at home Was on HD switched to PD On HD while inpatient Seen on HD, tolerating well , continue as Ordered Right femoral surgical site infection- s/p operative debridement with muscle flap. As per vascular she will need additional surgical debridement sometime next week Vasc Recommendations- Dual antiplatelet- on Aspirin and Brilinta On Abx - avoid PICC Anemia- received two units of PRBC intra/post op, Stable DM- as per primary DW Pt and DRN COMMENT/RELEVANT DATA Meds Current Medications Medications (Trade) Dose Ordered Sig/Martin Start Time Stop Time Status Last Admin Dose Admin Albuterol Sulfate (Ventolin Neb Soln) 2.5 mg PRN BID PRN 01/27/18 12:30 01/27/18 21:59 2.5 MG Amiodarone HCl (Cordarone) 200 mg DAILY 01/27/18 12:30 01/30/18 09:33 200 MG Aspirin (Anthony Aspirin) 325 mg DAILY 01/27/18 12:30 01/28/18 14:26 DC 01/28/18 09:13 325 MG Aspirin (Ecotrin) 81 mg DAILYWBKFT 01/29/18 08:00 01/30/18 09:32 81 MG Atorvastatin Calcium (Lipitor) 80 mg QHS 01/27/18 21:00 01/29/18 21:05 80 MG Bacitracin (Bacitracin) 50,000 unit STK-MED ONCE 01/27/18 12:14 01/27/18 13:16 DC 01/27/18 13:58 50,000 UNIT Bacitracin 67263 unit/Sodium Chloride 3,000 ml @ 0 mls/hr 1X ONCE 01/27/18 13:15 01/27/18 13:16 Cancel Calcitriol (Rocaltrol) 0.25 mcg DAILY 01/27/18 12:30 01/30/18 09:32 0.25 MCG Carbamazepine (TEGretol) 200 mg BID 01/27/18 12:30 01/30/18 09:33 200 MG Carvedilol (Coreg) 12.5 mg BIDWMEALS 01/27/18 12:30 01/30/18 09:34 12.5 MG Cefepime HCl (Maxipime) 1 gm Q24H 01/28/18 10:00 01/30/18 12:23 1 GM Cefepime HCl 1 gm/ Dextrose 50 ml @ 100 mls/hr DAILY 01/29/18 09:00 UNV Clopidogrel Bisulfate (Plavix) 75 mg DAILYWBKFT 01/28/18 08:00 01/28/18 14:28 DC 01/28/18 09:13 75 MG Dexamethasone Sodium Phosphate (Decadron) 20 mg STK-MED ONCE 01/27/18 13:11 01/27/18 13:12 DC Dextrose (Dextrose 50%-Water Syringe) 12.5 gm PRN Q15MIN PRN 01/28/18 14:45 Diltiazem HCl (Cardizem 24hr Cd) 120 mg DAILY 01/27/18 12:30 01/30/18 09:33 120 MG Diphenhydramine HCl (Benadryl) 25 mg PRN Q6HRS PRN 01/28/18 14:15 Erythromycin (E-Mycin) 250 mg BID 01/27/18 21:00 01/30/18 09:32 250 MG Fenofibrate (Lofibra) 134 mg QHS 01/27/18 21:00 01/29/18 21:06 134 MG Fentanyl Citrate (Fentanyl 2ml Vial) 50 mcg PRN Q5MIN PRN 01/27/18 10:45 01/27/18 18:00 DC Furosemide (Lasix) 80 mg [id number] 01/27/18 12:30 01/30/18 14:19 80 MG Gentamicin Sulfate 235 mg/ Dextrose 105.875 ml @ 105.875 mls/hr 1X ONCE 01/27/18 16:00 01/27/18 16:59 DC 01/27/18 19:56 105.875 MLS/HR Heparin Sodium (Porcine) (Hep Lock Adult) 500 unit 1X ONCE 01/29/18 14:00 01/29/18 14:17 DC 01/29/18 14:04 500 UNIT Hydralazine HCl (Apresoline) 10 mg PRN TID PRN 01/28/18 14:45 Hydromorphone HCl (Dilaudid) 0.5 mg PRN Q10MIN PRN 02/01/18 07:00 02/02/18 06:59 Influenza Virus Vaccine (Afluria Trivalent [id number] Syringe) 0.5 ml ONCE ONCE 01/27/18 09:00 01/27/18 09:01 DC 01/27/18 09:00 0.5 ML Info (PHARMACY MONITORING -- do not chart) 1 each PRN DAILY PRN 01/30/18 13:15 Insulin Glargine (Lantus) 22 units QHS 01/27/18 21:00 01/28/18 21:13 22 UNITS Insulin Human Lispro (HumaLOG) 0-5 UNITS TIDWMEALS 01/28/18 17:00 01/29/18 12:25 4 UNITS Lactobacillus Rhamnosus (Culturelle) 1 cap BID 01/27/18 21:00 01/30/18 09:32 1 CAP Lidocaine (Lidoderm) 1 patch PRN DAILY PRN 01/27/18 09:00 Lidocaine HCl (Lidocaine 1% 50ml Vial) 50 ml 1X ONCE 01/30/18 15:45 01/30/18 15:46 DC Lidocaine HCl (Xylocaine-Mpf 1% 2ml Vial) 2 ml PRN 1X PRN 02/01/18 07:00 02/02/18 06:59 Lidocaine HCl (Xylocaine-Mpf 2% Vial) 2 ml 1X ONCE 01/28/18 12:15 01/28/18 12:21 DC Lidocaine/ Epinephrine (LIDOCAINE 1%-EPI 1:100,000 Multi-Dose) 8 ml 1X ONCE 01/29/18 14:00 01/29/18 14:17 DC 01/29/18 14:01 8 ML Metronidazole 100 ml @ 100 mls/hr Q12HR 01/28/18 10:00 01/30/18 09:35 100 MLS/HR Midazolam HCl (Versed) 2 mg STK-MED ONCE 01/29/18 13:23 01/29/18 13:25 DC Miscellaneous (Lidoderm Patch Removal) 1 ea QHS 01/27/18 21:00 01/29/18 21:00 1 EA Morphine Sulfate (Morphine Sulfate) 5 mg 1X ONCE 01/29/18 14:00 01/29/18 14:17 DC 01/29/18 14:01 5 MG Morphine Sulfate (Ms Contin) 15 mg BID 01/27/18 12:30 01/30/18 09:33 15 MG Niacin (Slo-Niacin) 500 mg QHS 01/27/18 21:00 01/29/18 21:05 500 MG Nitroglycerin (Nitrostat) 0.4 mg PRN Q5MIN PRN 01/27/18 12:00 Non-Formulary Medication (Albuterol Sulfate (Proventil Hfa Inhaler)) 2 puff BID PRN 01/27/18 12:00 UNV Non-Formulary Medication (Fluconazole (Diflucan)) 100 mg PRN 01/27/18 12:00 UNV Nystatin (Nystop) 1 erich PRN BID PRN 01/27/18 12:00 Ondansetron HCl (Zofran Odt) 4 mg PRN Q6HRS PRN 01/27/18 12:15 Ondansetron HCl (Zofran) 4 mg PRN Q6HRS PRN 01/29/18 14:45 01/29/18 14:44 4 MG Oxycodone/ Acetaminophen (Percocet 10/325) 1 tab PRN Q4HRS PRN 01/29/18 07:45 01/29/18 08:32 1 TAB Pharmacy Consult (C.diff Med Screen By Rx) 1 each 1X ONCE 01/27/18 01:00 01/27/18 01:01 Cancel Prochlorperazine Edisylate (Compazine) 5 mg PACU PRN PRN 02/01/18 07:00 10/18 06:59 Promethazine HCl (Phenergan Im) 12.5 mg 1X ONCE 01/29/18 12:45 01/29/18 12:46 DC Promethazine HCl (Phenergan Supp) 12.5 mg 1X ONCE 01/29/18 12:15 01/29/18 12:36 DC Propofol 20 ml @ As Directed STK-MED ONCE 01/27/18 12:38 01/27/18 12:39 DC Ringer's Solution 1,000 ml @ 30 mls/hr Q24H 02/01/18 07:00 02/01/18 18:59 Sevoflurane (Ultane) 30 ml STK-MED ONCE 01/27/18 13:11 01/27/18 13:12 DC Sodium Chloride 1,000 ml @ 400 mls/hr Q2H30M PRN 01/30/18 13:09 01/31/18 01:08 Sodium Chloride (Normal Saline Flush) 10 ml 1X PRN PRN 01/30/18 13:15 01/31/18 13:14 Ticagrelor (Brilinta) 90 mg BID 01/28/18 21:00 01/30/18 09:34 90 MG Tramadol HCl (Ultram) 50 mg PRN Q4HRS PRN 01/27/18 12:00 Vancomycin HCl (Vanco Per Pharmacy) 1 each PRN DAILY PRN 01/26/18 22:45 01/30/18 16:30 1 EACH Vancomycin HCl (Vancomycin Random Level) 1 each 1X ONCE 01/28/18 05:00 01/28/18 05:01 DC 01/28/18 05:00 1 EACH Vancomycin HCl 1.75 gm/Sodium Chloride 500 ml @ 250 mls/hr 1X ONCE 01/26/18 23:00 01/27/18 00:59 DC 01/26/18 23:53 250 MLS/HR Vancomycin HCl 500 mg/Sodium Chloride 100 ml @ 100 mls/hr ONCE ONCE 01/30/18 18:00 01/30/18 18:59 Vitamin B Complex/ Vitamin C (Melly-Shabbir) 1 tab DAILY 01/27/18 12:30 01/30/18 09:32 1 TAB Lab Laboratory Tests Test 01/29/18 20:05 01/30/18 04:55 01/30/18 08:09 01/30/18 12:13 Glucose (Fingerstick) 139 mg/dL (70-99) 124 mg/dL (70-99) 111 mg/dL (70-99) White Blood Count 12.7 x10^3/uL (4.0-11.0) Red Blood Count 2.99 x10^6/uL (3.50-5.40) Hemoglobin 9.4 g/dL (12.0-15.5) Hematocrit 28.3 % (36.0-47.0) Mean Corpuscular Volume 95 fL (79-100) Mean Corpuscular Hemoglobin 32 pg (25-35) Mean Corpuscular Hemoglobin Concent 33 g/dL (31-37) Red Cell Distribution Width 18.0 % (11.5-14.5) Platelet Count 343 x10^3/uL (140-400) Sodium Level 141 mmol/L (136-145) Potassium Level 4.0 mmol/L (3.5-5.1) Chloride Level 100 mmol/L (98-107) Carbon Dioxide Level 32 mmol/L (21-32) Anion Gap 9 (6-14) Blood Urea Nitrogen 49 mg/dL (7-20) Creatinine 6.2 mg/dL (0.6-1.0) Estimated GFR (Cockcroft-Gault) 7.1 Glucose Level 141 mg/dL (70-99) Calcium Level 8.2 mg/dL (8.5-10.1) Phosphorus Level 6.0 mg/dL (2.6-4.7) Albumin 1.7 g/dL (3.4-5.0) Results All relevant outside records, renal labs, imaging studies, telemetry/EKG's were reviewed. HEMANT SCHAEFER MD Jan 30, 2018 16:43
[2018-01-30] MEDS ORDERED: VANCOMYCIN 500 MG in IV NORMAL SALINE 100ML 100 ML IV ONE (18:00)
[2018-01-30 19:00] VITALS: BP 161/63
[2018-01-30] MEDS: ATORVASTATIN CALCIUM 40 MG TABLET. PO SCH (20:36)
[2018-01-30] MEDS: NIACIN ER 500 MG TABLET.ER PO SCH (20:36)
[2018-01-30] MEDS: FENOFIBRATE,MICRONIZED 134 MG CAPSULE PO SCH (20:40)
[2018-01-30] MEDS: INSULIN GLARGINE 300 UNITS/3 ML INSULN.PEN. SQ SCH ×2 (21:00→23:31)
[2018-01-30] MEDS: PATCH REMOVAL. MC SCH (21:00)
[2018-01-30] MEDS: oxyCODONE/APAP 10/325 1 TAB TABLET PO PRN (22:37)
[2018-01-30 23:00] VITALS: BP 129/54
[2018-01-31 03:00] VITALS: BP 129/47
[2018-01-31] MEDS: HYDROmorphone 2 MG/ML VIAL IV PRN ×5 (03:19→22:00)
[2018-01-31 07:00] VITALS: BP 132/56
--- NOTE | 2018-01-31 08:30 | PDOC ---
PROGRESS NOTES Chief Complaint Chief Complaint Right groin wound infection Sepsis from Right LE cellulitis ESRD on PD History of Present Illness History of Present Illness Ms. Rosenbaum, is a 52 year old female admit with redness and leg pain acute pain to right leg with swelling. She was just discharged from the hospital recently after being admitted for cellulitis and hypocalcemia, is finishing her keflex at home and wound care as well. Culture was obtained in ED and she was noted tachycardic in the 110s with a WBC of 14.8 initially. To OR on 01/27/18 for debridement and wound vac placement. Having some pain. Admitted with right groin wound and RLE cellulitis failing outpatient therapy. Patient denies having chest pain or palpitations. Currently she reports her pain is a 4 out of 10 on the pain scale, feels overall better. She is now down to 2L NCO2, but feels she is breathing better while sitting in bed today. HTN better controlled. Back to OR tomorrow. A/P: Right groin wound - cultures obtained polymicrobial, antibiotics, to OR. Dressing changes per surgery. Back to OR 02/01. Hypoxia - likely 2/2 fluid overload with poor PD session. Wean O2 as tolerated Sepsis from cellulitis - on admission, started on empiric antibiotics and was given appropriate fluids, likely still a little overloaded from fluids, however , sepsis has improved now RLE cellulitis - swelling looks a bit improved, cont antibiotics cefepime and flagyl. Wound vac intact. WBC coming down ESRD on PD - consult nephrology, she does use HD occasionally, has been using 4 bags during day as she has trouble at night Diabetes with Hyperglycemia - will place on sliding scale insulin CAD with HTN - managed on meds, will add prn labetalol and hydralazine Severe protein calorie malnutrition - albumin 1.7, will add renal supplements for wound healing acceleration Constipation - Added stool softeners Access - picc left sided Vitals Vitals Vital Signs Date Time Temp Pulse Resp B/P (MAP) Pulse Ox O2 Delivery O2 Flow Rate FiO2 01/31/18 07:05 100 Nasal Cannula 2.0 01/31/18 03:00 99.1 71 18 129/47 (74) 99.1 Physical Exam Physical Exam GENERAL: Propped up in bed, alert, conversing HEENT: Oral cavity clear NECK: Supple LUNGS: Clear. HEART: S1, S2 regular. ABDOMEN: Soft, NT EXTREMITIES: Left BKA. RLE edema with wound vac in place . NEUROLOGIC: Alert and responds appropriately Tunnelled [facility] (01/29) General: Alert, Oriented X3, Cooperative Heart: Regular rate, Normal S1, Normal S2 Lungs: Clear, Wheezing Abdomen: Normal bowel sounds, Soft, No tenderness, Other (PD cath clean dry and intact) Extremities: Other (RLE red along staple line with swollen red foot and right groin open wound, foul smelling. LLE BKA clean. RUE fistula with good bruit) Skin: Other (dehiscence of the proximal right common femoral incision and vein harvest site with lower extremity edema and mild cellulitis) Labs LABS Laboratory Tests Test 01/30/18 12:13 01/30/18 20:18 01/30/18 21:46 01/30/18 23:15 Glucose (Fingerstick) 111 mg/dL (70-99) 98 mg/dL (70-99) 143 mg/dL (70-99) 226 mg/dL (70-99) Test 01/31/18 03:15 Glucose (Fingerstick) 255 mg/dL (70-99) Assessment and Plan Assessmemt and Plan Problems Medical Problems: (1) Chronic renal failure Status: Acute Comment Review of Relevant I have reviewed the following items bert (where applicable) has been applied. Labs Laboratory Tests Test 01/29/18 11:02 01/29/18 16:20 01/29/18 20:05 01/30/18 04:55 Glucose (Fingerstick) 285 mg/dL (70-99) 147 mg/dL (70-99) 139 mg/dL (70-99) White Blood Count 12.7 x10^3/uL (4.0-11.0) Red Blood Count 2.99 x10^6/uL (3.50-5.40) Hemoglobin 9.4 g/dL (12.0-15.5) Hematocrit 28.3 % (36.0-47.0) Mean Corpuscular Volume 95 fL (79-100) Mean Corpuscular Hemoglobin 32 pg (25-35) Mean Corpuscular Hemoglobin Concent 33 g/dL (31-37) Red Cell Distribution Width 18.0 % (11.5-14.5) Platelet Count 343 x10^3/uL (140-400) Sodium Level 141 mmol/L (136-145) Potassium Level 4.0 mmol/L (3.5-5.1) Chloride Level 100 mmol/L (98-107) Carbon Dioxide Level 32 mmol/L (21-32) Anion Gap 9 (6-14) Blood Urea Nitrogen 49 mg/dL (7-20) Creatinine 6.2 mg/dL (0.6-1.0) Estimated GFR (Cockcroft-Gault) 7.1 Glucose Level 141 mg/dL (70-99) Calcium Level 8.2 mg/dL (8.5-10.1) Phosphorus Level 6.0 mg/dL (2.6-4.7) Albumin 1.7 g/dL (3.4-5.0) Test 01/30/18 08:09 01/30/18 12:13 01/30/18 20:18 01/30/18 21:46 Glucose (Fingerstick) 124 mg/dL (70-99) 111 mg/dL (70-99) 98 mg/dL (70-99) 143 mg/dL (70-99) Test 01/30/18 23:15 01/31/18 03:15 Glucose (Fingerstick) 226 mg/dL (70-99) 255 mg/dL (70-99) Laboratory Tests Test 01/30/18 12:13 01/30/18 20:18 01/30/18 21:46 01/30/18 23:15 Glucose (Fingerstick) 111 mg/dL (70-99) 98 mg/dL (70-99) 143 mg/dL (70-99) 226 mg/dL (70-99) Test 01/31/18 03:15 Glucose (Fingerstick) 255 mg/dL (70-99) Microbiology 01/26/18 Blood Culture - Preliminary, Resulted NO GROWTH AFTER 4 DAYS 01/27/18 Anaerobic/Aerobic Culture - Preliminary, Resulted 01/27/18 Anaerobic Culture Result 1 (ROSALIND) - Preliminary, Resulted 01/27/18 Aerobic Culture - Final, Resulted 01/27/18 Aerobic Culture Result 1 (ROSALIND) - Final, Resulted 01/27/18 Antimicrobic Susceptibility - Final, Resulted 01/27/18 Gram Stain - Final, Resulted 01/27/18 Gram Stain Result 1 (ROSALIND) - Final, Resulted 01/27/18 Gram Stain Result 2 (ROSALIND) - Final, Resulted Medications Current Medications Hydromorphone HCl (Dilaudid) 2 mg 1X ONCE IV Last administered on 01/26/18at 22 :39; Start 01/26/18 at 22:00; Stop 01/26/18 at 22:01; Status DC Vancomycin HCl (Vanco Per Pharmacy) 1 each PRN DAILY PRN MC SEE COMMENTS Last administered on 01/30/18at 16:30; Start 01/26/18 at 22:45 Vancomycin HCl 1.75 gm/Sodium Chloride 500 ml @ 250 mls/hr 1X ONCE IV Last administered on 01/26/18at 23:53; Start 01/26/18 at 23:00; Stop 01/27/18 at 00:59 ; Status DC Ondansetron HCl (Zofran) 4 mg PRN Q8HRS PRN IV NAUSEA/VOMITING 1ST CHOICE; Start 01/26/18 at 23:15; Stop 01/27/18 at 23:14; Status DC Sodium Chloride 1,000 ml @ 75 mls/hr [id number] IV Last administered on at 00:39; Start 01/26/18 at 23:30; Stop 01/27/18 at 23:29; Status DC Pharmacy Consult (C.diff Med Screen By Rx) 1 each 1X ONCE MC ; Start 01/27/18 at 01:00; Stop 01/27/18 at 01:01; Status Cancel Influenza Virus Vaccine (Afluria Trivalent [id number] Syringe) 0.5 ml ONCE ONCE VAX IM Last administered on 01/27/18at 09:00; Start 01/27/18 at 09:00; Stop 01/27/18 at 09:01; Status DC Vancomycin HCl (Vancomycin Random Level) 1 each 1X ONCE MC Last administered on 01/28/18at 05:00; Start 01/28/18 at 05:00; Stop 01/28/18 at 05:01; Status DC Hydromorphone HCl (Dilaudid) 1 mg PRN Q3HRS PRN IV SEVERE PAIN Last administered on 01/31/18at 07:05; Start 01/27/18 at 03:30 Ondansetron HCl (Zofran) 4 mg PRN Q6HRS PRN IV NAUSEA/VOMITING; Start 01/27/18 at 10:45; Stop 01/27/18 at 18:00; Status DC Fentanyl Citrate (Fentanyl 2ml Vial) 25 mcg PRN Q5MIN PRN IV MILD PAIN; Start 01/27/18 at 10:45; Stop 01/27/18 at 18:00; Status DC Fentanyl Citrate (Fentanyl 2ml Vial) 50 mcg PRN Q5MIN PRN IV MODERATE TO SEVERE PAIN; Start 01/27/18 at 10:45; Stop 01/27/18 at 18:00; Status DC Morphine Sulfate (Morphine Sulfate) 1 mg PRN Q10MIN PRN IV SEVERE PAIN Last administered on 01/27/18at 16:28; Start 01/27/18 at 10:45; Stop 01/27/18 at 18:00 ; Status DC Ringer's Solution 1,000 ml @ 30 mls/hr Q24H IV Last administered on 01/27/18at 10:35; Start 01/27/18 at 10:35; Stop 01/27/18 at 19:36; Status DC Lidocaine HCl (Xylocaine-Mpf 1% 2ml Vial) 2 ml 1X PRN PRN ID IV START; Start 01/27/18 at 10:45; Stop 01/27/18 at 18:00; Status DC Hydromorphone HCl (Dilaudid) 0.5 mg PRN Q10MIN PRN IV SEV PAIN, Second choice Last administered on 01/27/18at 15:59; Start 01/27/18 at 10:45; Stop 01/27/18 at 18:00; Status DC Prochlorperazine Edisylate (Compazine) 5 mg PACU PRN PRN IV NAUSEA, MRX1; Start 01/27/18 at 10:45; Stop 01/27/18 at 18:00; Status DC Amiodarone HCl (Cordarone) 200 mg DAILY PO Last administered on 01/30/18at 09:33 ; Start 01/27/18 at 12:30 Aspirin (Anthony Aspirin) 325 mg DAILY PO Last administered on 01/28/18at 09:13; Start 01/27/18 at 12:30; Stop 01/28/18 at 14:26; Status DC Carbamazepine (TEGretol) 200 mg BID PO Last administered on 01/30/18at 20:40; Start 01/27/18 at 12:30 Carvedilol (Coreg) 12.5 mg BIDWMEALS PO Last administered on 01/30/18 20:40; Start 01/27/18 at 12:30 Vitamin B Complex/ Vitamin C (Melly-Shabbir) 1 tab DAILY PO Last administered on 09:32; Start 01/27/18 at 12:30 Furosemide (Lasix) 80 mg [id number] PO Last administered on 01/30/18 14:19; Start 01/27/18 at 12:30 Insulin Glargine (Lantus) 22 units QHS SQ Last administered on 01/30/18 23:31 ; Start 01/27/18 at 21:00 Morphine Sulfate (Ms Contin) 15 mg BID PO Last administered on 01/30/18 20:40 ; Start 01/27/18 at 12:30 Nitroglycerin (Nitrostat) 0.4 mg PRN Q5MIN PRN SL CHEST PAIN; Start 01/27/18 at 12:00 Nystatin (Nystop) 1 susanna PRN BID PRN TP SKIN BREAKDOWN; Start 01/27/18 at 12:00 Tramadol HCl (Ultram) 50 mg PRN Q4HRS PRN PO HEADACHE; Start 01/27/18 at 12:00 Non-Formulary Medication (Albuterol Sulfate (Proventil Hfa Inhaler)) 2 puff BID PRN IH FOR ASTHMA; Start 01/27/18 at 12:00; Status UNV Atorvastatin Calcium (Lipitor) 80 mg QHS PO Last administered on 01/30/18 20: 36; Start 01/27/18 at 21:00 Calcitriol (Rocaltrol) 0.25 mcg DAILY PO Last administered on 01/30/18 09:32; Start 01/27/18 at 12:30 Diltiazem HCl (Cardizem 24hr Cd) 120 mg DAILY PO Last administered on 09:33; Start 01/27/18 at 12:30 Erythromycin (E-Mycin) 250 mg BID PO Last administered on 01/30/18 20:35; Start 01/27/18 at 21:00 Fenofibrate (Lofibra) 134 mg QHS PO Last administered on 01/30/18 20:40; Start 01/27/18 at 21:00 Non-Formulary Medication (Fluconazole (Diflucan)) 100 mg PRN PO ; Start at 12:00; Status UNV Lidocaine (Lidoderm) 1 patch PRN DAILY PRN TD PAIN; Start 01/27/18 at 09:00 Niacin (Slo-Niacin) 500 mg QHS PO Last administered on 01/30/18at 20:36; Start 01/27/18 at 21:00 Ondansetron HCl (Zofran Odt) 4 mg PRN Q6HRS PRN PO NAUSEA/VOMITING; Start 01/27 at 12:15 Miscellaneous (Lidoderm Patch Removal) 1 ea QHS MC Last administered on at 21:00; Start 01/27/18 at 21:00 Albuterol Sulfate (Ventolin Neb Soln) 2.5 mg PRN BID PRN NEB SHORTNESS OF BREATH Last administered on 01/27/18at 21:59; Start 01/27/18 at 12:30 Lidocaine HCl (Lidocaine 1% 50ml Vial) 50 ml 1X ONCE INJ Last administered on 01/27/18at 14:06; Start 01/27/18 at 12:45; Stop 01/27/18 at 12:46; Status DC Hydromorphone HCl (Dilaudid) 2 mg STK-MED ONCE .ROUTE ; Start 01/27/18 at 12:36 ; Stop 01/27/18 at 12:38; Status DC Propofol 20 ml @ As Directed STK-MED ONCE IV ; Start 01/27/18 at 12:38; Stop at 12:39; Status DC Bacitracin 57028 unit/Sodium Chloride 3,000 ml @ 0 mls/hr 1X ONCE IR ; Start 01/27/18 at 13:15; Stop 01/27/18 at 13:16; Status Cancel Dexamethasone Sodium Phosphate (Decadron) 20 mg STK-MED ONCE .ROUTE ; Start 01/27/18 at 13:11; Stop 01/27/18 at 13:12; Status DC Ondansetron HCl (Zofran) 4 mg STK-MED ONCE .ROUTE ; Start 01/27/18 at 13:11; Stop 01/27/18 at 13:12; Status DC Sevoflurane (Ultane) 30 ml STK-MED ONCE IH ; Start 01/27/18 at 13:11; Stop 01/27 at 13:12; Status DC Bacitracin (Bacitracin) 50,000 unit STK-MED ONCE IRR Last administered on at 13:58; Start 01/27/18 at 12:14; Stop 01/27/18 at 13:16; Status DC Clopidogrel Bisulfate (Plavix) 75 mg DAILYWBKFT PO Last administered on at 09:13; Start 01/28/18 at 08:00; Stop 01/28/18 at 14:28; Status DC Hydromorphone HCl (Dilaudid) 2 mg STK-MED ONCE .ROUTE ; Start 01/27/18 at 15:38 ; Stop 01/27/18 at 15:40; Status DC Gentamicin Sulfate 235 mg/ Dextrose 105.875 ml @ 105.875 mls/hr 1X ONCE IV Last administered on 01/27/18at 19:56; Start 01/27/18 at 16:00; Stop 01/27/18 at 16:59; Status DC Lactobacillus Rhamnosus (Culturelle) 1 cap BID PO Last administered on at 20:36; Start 01/27/18 at 21:00 Cefepime HCl 1 gm/ Dextrose 50 ml @ 100 mls/hr DAILY IV ; Start 01/29/18 at 09: 00; Status UNV Metronidazole 100 ml @ 100 mls/hr Q12HR IV Last administered on 01/30/18at 21: 43; Start 01/28/18 at 10:00 Cefepime HCl (Maxipime) 1 gm Q24H IVP Last administered on 01/30/18at 12:23; Start 01/28/18 at 10:00 Lidocaine HCl (Xylocaine-Mpf 2% Vial) 2 ml STK-MED ONCE .ROUTE ; Start 01/28/18 at 11:41; Stop 01/28/18 at 11:42; Status DC Sodium Chloride 1,000 ml @ 1,000 mls/hr Q1H PRN IV hypotension; Start 01/28/18 at 12:09; Stop 01/28/18 at 18:08; Status DC Info (PHARMACY MONITORING -- do not chart) 1 each PRN DAILY PRN MC SEE COMMENTS ; Start 01/28/18 at 12:15; Status UNV Info (PHARMACY MONITORING -- do not chart) 1 each PRN DAILY PRN MC SEE COMMENTS ; Start 01/28/18 at 12:15 Lidocaine HCl (Xylocaine-Mpf 2% Vial) 2 ml 1X ONCE INJ ; Start 01/28/18 at 12: 15; Stop 01/28/18 at 12:21; Status DC Ticagrelor (Brilinta) 90 mg BID PO Last administered on 01/30/18at 20:36; Start 01/28/18 at 21:00 Diphenhydramine HCl (Benadryl) 25 mg PRN Q6HRS PRN PO ITCHING; Start 01/28/18 at 14:15 Aspirin (Ecotrin) 81 mg DAILYWBKFT PO Last administered on 01/30/18at 09:32; Start 01/29/18 at 08:00 Insulin Human Lispro (HumaLOG) 0-5 UNITS TIDWMEALS SQ Last administered on 01/29at 12:25; Start 01/28/18 at 17:00 Dextrose (Dextrose 50%-Water Syringe) 12.5 gm PRN Q15MIN PRN IV SEE COMMENTS; Start 01/28/18 at 14:45 Hydralazine HCl (Apresoline) 10 mg PRN TID PRN PO hypertension; Start 01/28/18 at 14:45 Oxycodone/ Acetaminophen (Percocet 10/325) 1 tab PRN Q4HRS PRN PO pain SEVERE Last administered on 01/30/18at 22:37; Start 01/29/18 at 07:45 Promethazine HCl (Phenergan Supp) 12.5 mg 1X ONCE CA ; Start 01/29/18 at 12:15 ; Stop 01/29/18 at 12:36; Status DC Promethazine HCl (Phenergan Im) 12.5 mg 1X ONCE IM ; Start 01/29/18 at 12:45; Stop 01/29/18 at 12:46; Status DC Lidocaine/ Epinephrine (LIDOCAINE 1%-EPI 1:100,000 Multi-Dose) 20 ml STK-MED ONCE .ROUTE ; Start 01/29/18 at 12:45; Stop 01/29/18 at 12:47; Status DC Heparin Sodium (Porcine) (Hep Lock Adult) 500 unit STK-MED ONCE IV ; Start 01/29 at 12:45; Stop 01/29/18 at 12:47; Status DC Morphine Sulfate (Morphine Sulfate) 10 mg STK-MED ONCE .ROUTE ; Start 01/29/18 at 13:23; Stop 01/29/18 at 13:25; Status DC Midazolam HCl (Versed) 2 mg STK-MED ONCE .ROUTE ; Start 01/29/18 at 13:23; Stop 01/29/18 at 13:25; Status DC Morphine Sulfate (Morphine Sulfate) 1 mg PRN Q10MIN PRN IV SEVERE PAIN; Start 02/01/18 at 07:00; Stop 02/02/18 at 06:59 Ringer's Solution 1,000 ml @ 30 mls/hr Q24H IV ; Start 02/01/18 at 07:00; Stop 02/01/18 at 18:59 Lidocaine HCl (Xylocaine-Mpf 1% 2ml Vial) 2 ml PRN 1X PRN ID PRIOR TO IV START ; Start 02/01/18 at 07:00; Stop 02/02/18 at 06:59 Hydromorphone HCl (Dilaudid) 0.5 mg PRN Q10MIN PRN IV SEV PAIN, Second choice; Start 02/01/18 at 07:00; Stop 02/02/18 at 06:59 Prochlorperazine Edisylate (Compazine) 5 mg PACU PRN PRN IV NAUSEA, MRX1; Start 02/01/18 at 07:00; Stop 02/02/18 at 06:59 Lidocaine/ Epinephrine (LIDOCAINE 1%-EPI 1:100,000 Multi-Dose) 8 ml 1X ONCE IJ Last administered on 01/29/18at 14:01; Start 01/29/18 at 14:00; Stop 01/29/18 at 14:17; Status DC Heparin Sodium (Porcine) (Hep Lock Adult) 500 unit 1X ONCE IV Last administered on 01/29/18at 14:04; Start 01/29/18 at 14:00; Stop 01/29/18 at 14:17 ; Status DC Morphine Sulfate (Morphine Sulfate) 5 mg 1X ONCE IV Last administered on at 14:01; Start 01/29/18 at 14:00; Stop 01/29/18 at 14:17; Status DC Ondansetron HCl (Zofran) 4 mg PRN Q6HRS PRN IV NAUSEA/VOMITING Last administered on 01/29/18at 14:44; Start 01/29/18 at 14:45 Vancomycin HCl 500 mg/Sodium Chloride 100 ml @ 100 mls/hr 1X ONCE IV Last administered on 01/29/18at 21:04; Start 01/29/18 at 18:00; Stop 01/29/18 at 18:59 ; Status DC Sodium Chloride 1,000 ml @ 1,000 mls/hr Q1H PRN IV hypotension; Start 01/30/18 at 13:09; Stop 01/30/18 at 19:08; Status DC Sodium Chloride (Normal Saline Flush) 10 ml 1X PRN PRN IV AP catheter pack; Start 01/30/18 at 13:15; Stop 01/31/18 at 13:14 Sodium Chloride (Normal Saline Flush) 10 ml 1X PRN PRN IV SYSTEM ENGINEER catheter pack; Start 01/30/18 at 13:15; Stop 01/31/18 at 13:14 Sodium Chloride 1,000 ml @ 400 mls/hr Q2H30M PRN IV PATENCY; Start 01/30/18 at 13:09; Stop 01/31/18 at 01:08; Status DC Info (PHARMACY MONITORING -- do not chart) 1 each PRN DAILY PRN MC SEE COMMENTS ; Start 01/30/18 at 13:15; Stop 01/30/18 at 13:17; Status DC Info (PHARMACY MONITORING -- do not chart) 1 each PRN DAILY PRN MC SEE COMMENTS ; Start 01/30/18 at 13:15 Lidocaine HCl (Lidocaine 1% 50ml Vial) 50 ml 1X ONCE INJ ; Start 01/30/18 at 15 :45; Stop 01/30/18 at 15:46; Status DC Vancomycin HCl 500 mg/Sodium Chloride 100 ml @ 100 mls/hr ONCE ONCE IV Last administered on 01/30/18at 20:49; Start 01/30/18 at 18:00; Stop 01/30/18 at 18:59 ; Status DC Cefazolin Sodium 1 gm/Sodium Chloride 500 ml @ 500 mls/hr 1X ONCE IRR ; Start 02/01/18 at 06:00; Stop 02/01/18 at 06:59 Active Scripts Active Percocet 10-325 Mg Tablet (Oxycodone/Acetaminophen) 1 Each Tablet 1 Tab PO Q4HRS Brilinta (Ticagrelor) 90 Mg Tablet 90 Mg PO BID 30 Days Morphine Sulfate Er (Morphine Sulfate) 15 Mg Tablet.er 15 Mg PO BID Reported Brilinta (Ticagrelor) 90 Mg Tablet 90 Mg PO BID Lidocaine 1 Each Adh..patch 1 Each TP PRN DAILY PRN Calcitriol 0.25 Mcg Capsule 1 Cap PO DAILY Tegretol (Carbamazepine) 200 Mg Tablet 1 Tab PO BID Tramadol Hcl 50 Mg Tablet 50 Mg PO Q4HRS PRN Lantus Solostar (Insulin Glargine,Hum.rec.anlog) 100 Unit/1 Ml Insuln.pen 22 Unit SQ QHS Diflucan (Fluconazole) 100 Mg Tablet 100 Mg PO PRN Carvedilol 3.125 Mg Tablet 12.5 Mg PO BID Erythromycin (Erythromycin Base) 250 Mg Capsule.dr 250 Mg PO BID Cardizem Cd (Diltiazem Hcl) 180 Mg Cap.er.24h 120 Mg PO DAILY Amiodarone Hcl 200 Mg Tablet 1 Tab PO DAILY Nystatin 15 Gm Powder 1 Susanna TP PRN BID PRN Proventil Hfa Inhaler (Albuterol Sulfate) 6.7 Gm Hfa.aer.ad 2 Puff IH BID PRN Zofran (Ondansetron Hcl) 4 Mg Tablet 4 Mg PO Q6-8HRS PRN Nephro-Shabbir Tablet (Folic Acid/Vitamin B Comp W-C) 0.8 Mg Tablet 1 Tab PO DAILY Tricor (Fenofibrate Nanocrystallized) 145 Mg Tablet 1 Tab PO HS Lipitor (Atorvastatin Calcium) 80 Mg Tablet 80 Mg PO HS Niacin 500 Mg Tablet 500 Mg PO HS Novolog (Insulin Aspart) 100 Unit/1 Ml Cartridge 0 SQ TIDAC sliding scale Aspirin 325 Mg Tablet 325 Mg PO DAILY Furosemide 80 Mg Tablet 80 Mg PO BID Docusate Sodium 100 Mg Capsule 1 Cap PO PRN PRN Nitrostat (Nitroglycerin) 0.4 Mg Tab.subl 0.4 Mg SL PRN Q5MIN PRN Take as needed for chest pain Vitals/I & O Vital Sign - Last 24 Hours 01/30/18 01/30/18 01/30/18 01/30/18 09:33 09:33 09:33 09:34 Pulse 78 78 78 Resp 18 B/P (MAP) 144/62 144/62 144/62 Pulse Ox 100 O2 Delivery Room Air O2 Flow Rate 2.0 01/30/18 01/30/18 01/30/18 01/30/18 11:00 12:23 12:55 13:35 Temp 97.9 97.9 Pulse 75 Resp 16 18 18 18 B/P (MAP) 132/57 (82) Pulse Ox 100 100 O2 Delivery Room Air Room Air O2 Flow Rate 2.0 01/30/18 01/30/18 01/30/18 01/30/18 19:00 19:45 20:00 20:40 Temp 99.3 99.3 Pulse 81 81 Resp 18 B/P (MAP) 161/63 (95) 161/63 Pulse Ox 100 100 O2 Delivery Room Air Room Air Nasal Cannula O2 Flow Rate 2.0 01/30/18 01/30/18 01/30/18 01/30/18 20:40 22:37 23:00 23:33 Temp 99.2 99.2 Pulse 71 Resp 18 B/P (MAP) 129/54 (79) Pulse Ox 100 100 100 100 O2 Delivery Room Air Nasal Cannula Room Air Nasal Cannula O2 Flow Rate 2.0 2.0 01/30/18 01/31/18 01/31/18 01/31/18 23:37 00:40 03:00 03:19 Temp 99.1 99.1 Pulse 71 Resp 18 B/P (MAP) 129/47 (74) Pulse Ox 100 100 96 100 O2 Delivery Room Air Nasal Cannula Room Air Nasal Cannula O2 Flow Rate 2.0 2.0 2.0 01/31/18 01/31/18 03:50 07:05 Pulse Ox 100 100 O2 Delivery Nasal Cannula Nasal Cannula O2 Flow Rate 2.0 2.0 Intake and Output 01/30/18 01/30/18 01/31/18 15:00 23:00 07:00 Intake Total 440 ml 800 ml Output Total 0 ml Balance 440 ml 800 ml JEREMIAS VERDUGO MD Jan 31, 2018 08:30
[2018-01-31] MEDS: INSULIN LISPRO 300 UNITS/3 ML INSULN.PEN. SQ SCH ×3 (09:04→16:59)
[2018-01-31] MEDS: ASPIRIN ENTERIC COATED 81 MG TABLET.DR. PO SCH (09:29)
[2018-01-31] MEDS: FUROSEMIDE 80 MG TABLET. PO SCH ×2 (09:29→15:21)
[2018-01-31] MEDS: CALCITRIOL 0.25 MCG CAPSULE. PO SCH (09:29)
[2018-01-31] MEDS: LACTOBACILLUS RHAMNOSUS GG 1 CAPSULE. PO SCH ×2 (09:29→20:39)
[2018-01-31] MEDS: TICAGRELOR 90 MG TABLET. PO SCH ×2 (09:30→20:38)
[2018-01-31] MEDS: ERYTHROMYCIN BASE 250 MG TABLET PO SCH ×2 (09:30→20:38)
[2018-01-31] MEDS: carBAMazepine 200 MG TABLET PO SCH ×2 (09:30→20:38)
[2018-01-31] MEDS: FOLIC/VIT B COMP W-C (RENAL) TABLET. PO SCH (09:30)
[2018-01-31] MEDS: CARVEDILOL 12.5 MG TABLET. PO SCH ×2 (09:31→17:00)
[2018-01-31] MEDS: MORPHINE ER 15 MG TABLET.ER PO SCH ×2 (09:31→20:38)
[2018-01-31] MEDS: AMIODARONE HCL 200 MG TABLET. PO SCH (09:31)
[2018-01-31] MEDS: CEFEPIME HCL IV Push 1 GM VIAL. IVP SCH (10:20)
[2018-01-31 11:00] VITALS: BP 120/53
--- NOTE | 2018-01-31 11:37 | PDOC ---
Infectious Disease Note Subjective Subjective Less leg redness Some nausea but no further vomiting Denies F/C/S/SOA ROS ROS per HPI otherwise neg Vital Sign Vital Signs Vital Signs Date Time Temp Pulse Resp B/P (MAP) Pulse Ox O2 Delivery O2 Flow Rate FiO2 01/31/18 09:31 Nasal Cannula 2.0 01/31/18 09:31 73 132/56 01/31/18 07:05 100 01/31/18 07:00 97.5 20 97.5 Physical Exam PHYSICAL EXAM GENERAL: Propped up in bed, alert, NAD HEENT: Oral cavity clear NECK: Supple LUNGS: Clear. HEART: S1, S2 regular. ABDOMEN: Soft, NT EXTREMITIES: Left BKA. RLE edema with wound vac in place . NEUROLOGIC: Alert and responds appropriately Tunnelled RIJ (01/29) Labs Lab Laboratory Tests Test 01/30/18 12:13 01/30/18 20:18 01/30/18 21:46 01/30/18 23:15 Glucose (Fingerstick) 111 mg/dL (70-99) 98 mg/dL (70-99) 143 mg/dL (70-99) 226 mg/dL (70-99) Test 01/31/18 03:15 01/31/18 08:28 Glucose (Fingerstick) 255 mg/dL (70-99) 120 mg/dL (70-99) Micro 01/26/18 Blood Culture - Preliminary, Resulted NO GROWTH AFTER 4 DAYS 01/27 ANAEROBIC RES 1 Preliminary No anaerobes recovered in 24 hours. AEROBIC RES 1 Final Klebsiella pneumoniae MICS are expressed in micrograms per mL Antibiotic RSLT#1 RSLT#2 Amoxicillin/Clavulanic Acid S<=2 Ampicillin R>=32 Cefepime S<=0.12 Ceftriaxone S<=0.25 Cefuroxime S =4 Ciprofloxacin S =1 Ertapenem S<=0.12 Gentamicin S<=1 Imipenem S<=0.25 Levofloxacin S =1 Meropenem S<=0.25 Piperacillin/Tazobactam S<=4 Tetracycline S<=1 Tobramycin S<=1 Trimethoprim/Sulfa S<=20 Objective Assessment Right leg surgery site infection s/p excisional debridement; muscle flap & wound VAC placement on 01/[address] Reina. Klebsiella (R amp) PAD s/p leg bypass on 9/12 ESRD Multiple antibiotic allergies Amiodarone therapy h/o VRE, MRSA, c. diff Plan Plan of Care vanc, cefepime and Flagyl - occ nausea but ok -gent x 1 on 01/27 Random Vanc trough 18.0 Probiotics f/u cultures Pain management per primary Further debridement and wound vac change on Thursday 02/01 Supportive care Attending Co-Sign Attending Co-Sign The patient was seen and interviewed as well as examined at the bedside. The chart was reviewed. The case was discussed. Agree with the plan of care. KYLEIGH QUEEN APRN Jan 31, 2018 11:37 ALBERTO NAVA MD Jan 31, 2018 13:49
[2018-01-31 15:00] VITALS: BP 117/53
[2018-01-31] MEDS: oxyCODONE/APAP 10/325 1 TAB TABLET PO PRN (16:59)
[2018-01-31] MEDS: VANCOMYCIN PER PHARMACY MC PRN (17:20)
[2018-01-31 19:00] VITALS: BP 137/56
[2018-01-31] MEDS: FENOFIBRATE,MICRONIZED 134 MG CAPSULE PO SCH (20:38)
[2018-01-31] MEDS: ATORVASTATIN CALCIUM 40 MG TABLET. PO SCH (20:38)
[2018-01-31] MEDS: NIACIN ER 500 MG TABLET.ER PO SCH (20:38)
[2018-01-31] MEDS: PATCH REMOVAL. MC SCH (20:41)
[2018-01-31] MEDS: INSULIN GLARGINE 300 UNITS/3 ML INSULN.PEN. SQ SCH (21:00)
[2018-01-31 23:00] VITALS: BP 116/53
[2018-02-01] VITALS (12 sets, daily range): BP systolic 103–147; BP diastolic 48–61
[2018-02-01] MEDS ORDERED: LIDOCAINE 1% PF 2 ML VIAL. ID PRN (07:00)
[2018-02-01] MEDS ORDERED: IV RINGERS,LACTATED 1000ML 1,000 ML IV SCH (07:00)
[2018-02-01] MEDS ORDERED: PROCHLORPERAZINE 10 MG/2 ML VIAL. IV PRN (07:00)
[2018-02-01] MEDS: CARVEDILOL 12.5 MG TABLET. PO SCH ×2 (08:00→17:20)
[2018-02-01] MEDS: ASPIRIN ENTERIC COATED 81 MG TABLET.DR. PO SCH (08:00)
[2018-02-01] MEDS: INSULIN LISPRO 300 UNITS/3 ML INSULN.PEN. SQ SCH ×3 (08:00→17:00)
--- NOTE | 2018-02-01 08:37 | PDOC ---
PROGRESS NOTES Chief Complaint Chief Complaint Right groin wound infection Sepsis from Right LE cellulitis ESRD on PD History of Present Illness History of Present Illness Ms. Rosenbaum, is a 52 year old female admit with redness and leg pain acute pain to right leg with swelling. She was just discharged from the hospital recently after being admitted for cellulitis and hypocalcemia, is finishing her keflex at home and wound care as well. Culture was obtained in ED and she was noted tachycardic in the 110s with a WBC of 14.8 initially. To OR on 01/27/18 for debridement and wound vac placement. Having some pain. Admitted with right groin wound and RLE cellulitis failing outpatient therapy. Patient denies having chest pain or palpitations. Currently she reports her pain is a 4 out of 10 on the pain scale, feels overall better. She is now down to 1L NCO2, but feels she is breathing better while sitting in bed today. HTN better controlled. Back to OR today A/P: Right groin wound - cultures obtained polymicrobial, antibiotics, to OR. Dressing changes per surgery. Back to OR 02/01. Hypoxia - likely 2/2 fluid overload with poor PD session. Wean O2 as tolerated Sepsis from cellulitis - on admission, started on empiric antibiotics and was given appropriate fluids, likely still a little overloaded from fluids, however , sepsis has improved now RLE cellulitis - swelling looks a bit improved, cont antibiotics cefepime and flagyl. Wound vac intact. WBC coming down ESRD on PD - consult nephrology, she does use HD occasionally, has been using 4 bags during day as she has trouble at night Diabetes with Hyperglycemia - will place on sliding scale insulin CAD with HTN - managed on meds, will add prn labetalol and hydralazine Severe protein calorie malnutrition - albumin 1.7, will add renal supplements for wound healing acceleration Constipation - Added stool softeners Access - picc left sided Vitals Vitals Vital Signs Date Time Temp Pulse Resp B/P (MAP) Pulse Ox O2 Delivery O2 Flow Rate FiO2 02/01/18 07:00 97.7 74 14 125/54 (77) 98 Room Air 97.7 02/01/18 00:40 2.0 Physical Exam Physical Exam GENERAL: Propped up in bed, alert, NAD HEENT: Oral cavity clear NECK: Supple LUNGS: Clear. HEART: S1, S2 regular. ABDOMEN: Soft, NT EXTREMITIES: Left BKA. RLE edema with wound vac in place . NEUROLOGIC: Alert and responds appropriately Tunnelled [facility] (01/29) General: Alert, Oriented X3, Cooperative Heart: Regular rate, Normal S1, Normal S2 Lungs: Clear, Wheezing Abdomen: Normal bowel sounds, Soft, No tenderness, Other (PD cath clean dry and intact) Extremities: Other (RLE red along staple line with swollen red foot and right groin open wound, foul smelling. LLE BKA clean. RUE fistula with good bruit) Skin: Other (dehiscence of the proximal right common femoral incision and vein harvest site with lower extremity edema and mild cellulitis) Labs LABS Laboratory Tests Test 01/31/18 11:44 01/31/18 16:54 01/31/18 20:09 02/01/18 07:30 Glucose (Fingerstick) 129 mg/dL (70-99) 128 mg/dL (70-99) 143 mg/dL (70-99) 105 mg/dL (70-99) Assessment and Plan Assessmemt and Plan Problems Medical Problems: (1) Chronic renal failure Status: Acute Comment Review of Relevant I have reviewed the following items bert (where applicable) has been applied. Labs Laboratory Tests Test 01/30/18 12:13 01/30/18 20:18 01/30/18 21:46 01/30/18 23:15 Glucose (Fingerstick) 111 mg/dL (70-99) 98 mg/dL (70-99) 143 mg/dL (70-99) 226 mg/dL (70-99) Test 01/31/18 03:15 01/31/18 08:28 01/31/18 11:44 01/31/18 16:54 Glucose (Fingerstick) 255 mg/dL (70-99) 120 mg/dL (70-99) 129 mg/dL (70-99) 128 mg/dL (70-99) Test 01/31/18 20:09 02/01/18 07:30 Glucose (Fingerstick) 143 mg/dL (70-99) 105 mg/dL (70-99) Laboratory Tests Test 01/31/18 11:44 01/31/18 16:54 01/31/18 20:09 02/01/18 07:30 Glucose (Fingerstick) 129 mg/dL (70-99) 128 mg/dL (70-99) 143 mg/dL (70-99) 105 mg/dL (70-99) Microbiology 01/26/18 Blood Culture - Final, Complete NO GROWTH AFTER 5 DAYS 01/27/18 Anaerobic/Aerobic Culture - Preliminary, Resulted 01/27/18 Anaerobic Culture Result 1 (ROSALIND) - Preliminary, Resulted 01/27/18 Aerobic Culture - Final, Resulted 01/27/18 Aerobic Culture Result 1 (ROSALIND) - Final, Resulted 01/27/18 Antimicrobic Susceptibility - Final, Resulted 01/27/18 Gram Stain - Final, Resulted 01/27/18 Gram Stain Result 1 (ROSALIND) - Final, Resulted 01/27/18 Gram Stain Result 2 (ROSALIND) - Final, Resulted Medications Current Medications Hydromorphone HCl (Dilaudid) 2 mg 1X ONCE IV Last administered on 01/26/18at 22 :39; Start 01/26/18 at 22:00; Stop 01/26/18 at 22:01; Status DC Vancomycin HCl (Vanco Per Pharmacy) 1 each PRN DAILY PRN MC SEE COMMENTS Last administered on 01/31/18at 17:20; Start 01/26/18 at 22:45 Vancomycin HCl 1.75 gm/Sodium Chloride 500 ml @ 250 mls/hr 1X ONCE IV Last administered on 01/26/18at 23:53; Start 01/26/18 at 23:00; Stop 01/27/18 at 00:59 ; Status DC Ondansetron HCl (Zofran) 4 mg PRN Q8HRS PRN IV NAUSEA/VOMITING 1ST CHOICE; Start 01/26/18 at 23:15; Stop 01/27/18 at 23:14; Status DC Sodium Chloride 1,000 ml @ 75 mls/hr [id number] IV Last administered on at 00:39; Start 01/26/18 at 23:30; Stop 01/27/18 at 23:29; Status DC Pharmacy Consult (C.diff Med Screen By Rx) 1 each 1X ONCE MC ; Start 01/27/18 at 01:00; Stop 01/27/18 at 01:01; Status Cancel Influenza Virus Vaccine (Afluria Trivalent [id number] Syringe) 0.5 ml ONCE ONCE VAX IM Last administered on 01/27/18at 09:00; Start 01/27/18 at 09:00; Stop 01/27/18 at 09:01; Status DC Vancomycin HCl (Vancomycin Random Level) 1 each 1X ONCE MC Last administered on 01/28/18at 05:00; Start 01/28/18 at 05:00; Stop 01/28/18 at 05:01; Status DC Hydromorphone HCl (Dilaudid) 1 mg PRN Q3HRS PRN IV SEVERE PAIN Last administered on 01/31/18at 22:00; Start 01/27/18 at 03:30 Ondansetron HCl (Zofran) 4 mg PRN Q6HRS PRN IV NAUSEA/VOMITING; Start 01/27/18 at 10:45; Stop 01/27/18 at 18:00; Status DC Fentanyl Citrate (Fentanyl 2ml Vial) 25 mcg PRN Q5MIN PRN IV MILD PAIN; Start 01/27/18 at 10:45; Stop 01/27/18 at 18:00; Status DC Fentanyl Citrate (Fentanyl 2ml Vial) 50 mcg PRN Q5MIN PRN IV MODERATE TO SEVERE PAIN; Start 01/27/18 at 10:45; Stop 01/27/18 at 18:00; Status DC Morphine Sulfate (Morphine Sulfate) 1 mg PRN Q10MIN PRN IV SEVERE PAIN Last administered on 01/27/18at 16:28; Start 01/27/18 at 10:45; Stop 01/27/18 at 18:00 ; Status DC Ringer's Solution 1,000 ml @ 30 mls/hr Q24H IV Last administered on 01/27/18at 10:35; Start 01/27/18 at 10:35; Stop 01/27/18 at 19:36; Status DC Lidocaine HCl (Xylocaine-Mpf 1% 2ml Vial) 2 ml 1X PRN PRN ID IV START; Start 01/27/18 at 10:45; Stop 01/27/18 at 18:00; Status DC Hydromorphone HCl (Dilaudid) 0.5 mg PRN Q10MIN PRN IV SEV PAIN, Second choice Last administered on 01/27/18at 15:59; Start 01/27/18 at 10:45; Stop 01/27/18 at 18:00; Status DC Prochlorperazine Edisylate (Compazine) 5 mg PACU PRN PRN IV NAUSEA, MRX1; Start 01/27/18 at 10:45; Stop 01/27/18 at 18:00; Status DC Amiodarone HCl (Cordarone) 200 mg DAILY PO Last administered on 01/31/18 09:31 ; Start 01/27/18 at 12:30 Aspirin (Anthony Aspirin) 325 mg DAILY PO Last administered on 01/28/18 09:13; Start 01/27/18 at 12:30; Stop 01/28/18 at 14:26; Status DC Carbamazepine (TEGretol) 200 mg BID PO Last administered on 01/31/18 20:38; Start 01/27/18 at 12:30 Carvedilol (Coreg) 12.5 mg BIDWMEALS PO Last administered on 01/31/18 17:00; Start 01/27/18 at 12:30 Vitamin B Complex/ Vitamin C (Melly-Shabbir) 1 tab DAILY PO Last administered on 09:30; Start 01/27/18 at 12:30 Furosemide (Lasix) 80 mg [id number] PO Last administered on 01/31/18 15:21; Start 01/27/18 at 12:30 Insulin Glargine (Lantus) 22 units QHS SQ Last administered on 01/30/18 23:31 ; Start 01/27/18 at 21:00 Morphine Sulfate (Ms Contin) 15 mg BID PO Last administered on 01/31/18 20:38 ; Start 01/27/18 at 12:30 Nitroglycerin (Nitrostat) 0.4 mg PRN Q5MIN PRN SL CHEST PAIN; Start 01/27/18 at 12:00 Nystatin (Nystop) 1 susanna PRN BID PRN TP SKIN BREAKDOWN; Start 01/27/18 at 12:00 Tramadol HCl (Ultram) 50 mg PRN Q4HRS PRN PO HEADACHE; Start 01/27/18 at 12:00 Non-Formulary Medication (Albuterol Sulfate (Proventil Hfa Inhaler)) 2 puff BID PRN IH FOR ASTHMA; Start 01/27/18 at 12:00; Status UNV Atorvastatin Calcium (Lipitor) 80 mg QHS PO Last administered on 01/31/18 20: 38; Start 01/27/18 at 21:00 Calcitriol (Rocaltrol) 0.25 mcg DAILY PO Last administered on 01/31/18 09:29; Start 01/27/18 at 12:30 Diltiazem HCl (Cardizem 24hr Cd) 120 mg DAILY PO Last administered on 09:30; Start 01/27/18 at 12:30 Erythromycin (E-Mycin) 250 mg BID PO Last administered on 01/31/18 20:38; Start 01/27/18 at 21:00 Fenofibrate (Lofibra) 134 mg QHS PO Last administered on 01/31/18 20:38; Start 01/27/18 at 21:00 Non-Formulary Medication (Fluconazole (Diflucan)) 100 mg PRN PO ; Start at 12:00; Status UNV Lidocaine (Lidoderm) 1 patch PRN DAILY PRN TD PAIN; Start 01/27/18 at 09:00 Niacin (Slo-Niacin) 500 mg QHS PO Last administered on 01/31/18 20:38; Start 01/27/18 at 21:00 Ondansetron HCl (Zofran Odt) 4 mg PRN Q6HRS PRN PO NAUSEA/VOMITING; Start 01/27 at 12:15 Miscellaneous (Lidoderm Patch Removal) 1 ea QHS MC Last administered on 21:00; Start 01/27/18 at 21:00 Albuterol Sulfate (Ventolin Neb Soln) 2.5 mg PRN BID PRN NEB SHORTNESS OF BREATH Last administered on 01/27/18at 21:59; Start 01/27/18 at 12:30 Lidocaine HCl (Lidocaine 1% 50ml Vial) 50 ml 1X ONCE INJ Last administered on 01/27/18at 14:06; Start 01/27/18 at 12:45; Stop 01/27/18 at 12:46; Status DC Hydromorphone HCl (Dilaudid) 2 mg STK-MED ONCE .ROUTE ; Start 01/27/18 at 12:36 ; Stop 01/27/18 at 12:38; Status DC Propofol 20 ml @ As Directed STK-MED ONCE IV ; Start 01/27/18 at 12:38; Stop at 12:39; Status DC Bacitracin 08636 unit/Sodium Chloride 3,000 ml @ 0 mls/hr 1X ONCE IR ; Start 01/27/18 at 13:15; Stop 01/27/18 at 13:16; Status Cancel Dexamethasone Sodium Phosphate (Decadron) 20 mg STK-MED ONCE .ROUTE ; Start 01/27/18 at 13:11; Stop 01/27/18 at 13:12; Status DC Ondansetron HCl (Zofran) 4 mg STK-MED ONCE .ROUTE ; Start 01/27/18 at 13:11; Stop 01/27/18 at 13:12; Status DC Sevoflurane (Ultane) 30 ml STK-MED ONCE IH ; Start 01/27/18 at 13:11; Stop 01/27 at 13:12; Status DC Bacitracin (Bacitracin) 50,000 unit STK-MED ONCE IRR Last administered on at 13:58; Start 01/27/18 at 12:14; Stop 01/27/18 at 13:16; Status DC Clopidogrel Bisulfate (Plavix) 75 mg DAILYWBKFT PO Last administered on at 09:13; Start 01/28/18 at 08:00; Stop 01/28/18 at 14:28; Status DC Hydromorphone HCl (Dilaudid) 2 mg STK-MED ONCE .ROUTE ; Start 01/27/18 at 15:38 ; Stop 01/27/18 at 15:40; Status DC Gentamicin Sulfate 235 mg/ Dextrose 105.875 ml @ 105.875 mls/hr 1X ONCE IV Last administered on 01/27/18at 19:56; Start 01/27/18 at 16:00; Stop 01/27/18 at 16:59; Status DC Lactobacillus Rhamnosus (Culturelle) 1 cap BID PO Last administered on at 20:39; Start 01/27/18 at 21:00 Cefepime HCl 1 gm/ Dextrose 50 ml @ 100 mls/hr DAILY IV ; Start 01/29/18 at 09: 00; Status UNV Metronidazole 100 ml @ 100 mls/hr Q12HR IV Last administered on 01/31/18at 20: 38; Start 01/28/18 at 10:00 Cefepime HCl (Maxipime) 1 gm Q24H IVP Last administered on 01/31/18at 10:20; Start 01/28/18 at 10:00 Lidocaine HCl (Xylocaine-Mpf 2% Vial) 2 ml STK-MED ONCE .ROUTE ; Start 01/28/18 at 11:41; Stop 01/28/18 at 11:42; Status DC Sodium Chloride 1,000 ml @ 1,000 mls/hr Q1H PRN IV hypotension; Start 01/28/18 at 12:09; Stop 01/28/18 at 18:08; Status DC Info (PHARMACY MONITORING -- do not chart) 1 each PRN DAILY PRN MC SEE COMMENTS ; Start 01/28/18 at 12:15; Status UNV Info (PHARMACY MONITORING -- do not chart) 1 each PRN DAILY PRN MC SEE COMMENTS ; Start 01/28/18 at 12:15; Stop 01/31/18 at 09:10; Status DC Lidocaine HCl (Xylocaine-Mpf 2% Vial) 2 ml 1X ONCE INJ ; Start 01/28/18 at 12: 15; Stop 01/28/18 at 12:21; Status DC Ticagrelor (Brilinta) 90 mg BID PO Last administered on 01/31/18at 20:38; Start 01/28/18 at 21:00 Diphenhydramine HCl (Benadryl) 25 mg PRN Q6HRS PRN PO ITCHING; Start 01/28/18 at 14:15 Aspirin (Ecotrin) 81 mg DAILYWBKFT PO Last administered on 01/31/18at 09:29; Start 01/29/18 at 08:00 Insulin Human Lispro (HumaLOG) 0-5 UNITS TIDWMEALS SQ Last administered on 01/29at 12:25; Start 01/28/18 at 17:00 Dextrose (Dextrose 50%-Water Syringe) 12.5 gm PRN Q15MIN PRN IV SEE COMMENTS; Start 01/28/18 at 14:45 Hydralazine HCl (Apresoline) 10 mg PRN TID PRN PO hypertension; Start 01/28/18 at 14:45 Oxycodone/ Acetaminophen (Percocet 10/325) 1 tab PRN Q4HRS PRN PO pain SEVERE Last administered on 01/31/18at 16:59; Start 01/29/18 at 07:45 Promethazine HCl (Phenergan Supp) 12.5 mg 1X ONCE AK ; Start 01/29/18 at 12:15 ; Stop 01/29/18 at 12:36; Status DC Promethazine HCl (Phenergan Im) 12.5 mg 1X ONCE IM ; Start 01/29/18 at 12:45; Stop 01/29/18 at 12:46; Status DC Lidocaine/ Epinephrine (LIDOCAINE 1%-EPI 1:100,000 Multi-Dose) 20 ml STK-MED ONCE .ROUTE ; Start 01/29/18 at 12:45; Stop 01/29/18 at 12:47; Status DC Heparin Sodium (Porcine) (Hep Lock Adult) 500 unit STK-MED ONCE IV ; Start 01/29 at 12:45; Stop 01/29/18 at 12:47; Status DC Morphine Sulfate (Morphine Sulfate) 10 mg STK-MED ONCE .ROUTE ; Start 01/29/18 at 13:23; Stop 01/29/18 at 13:25; Status DC Midazolam HCl (Versed) 2 mg STK-MED ONCE .ROUTE ; Start 01/29/18 at 13:23; Stop 01/29/18 at 13:25; Status DC Morphine Sulfate (Morphine Sulfate) 1 mg PRN Q10MIN PRN IV SEVERE PAIN; Start 02/01/18 at 07:00; Stop 02/02/18 at 06:59 Ringer's Solution 1,000 ml @ 30 mls/hr Q24H IV ; Start 02/01/18 at 07:00; Stop 02/01/18 at 18:59 Lidocaine HCl (Xylocaine-Mpf 1% 2ml Vial) 2 ml PRN 1X PRN ID PRIOR TO IV START ; Start 02/01/18 at 07:00; Stop 02/02/18 at 06:59 Hydromorphone HCl (Dilaudid) 0.5 mg PRN Q10MIN PRN IV SEV PAIN, Second choice; Start 02/01/18 at 07:00; Stop 02/02/18 at 06:59 Prochlorperazine Edisylate (Compazine) 5 mg PACU PRN PRN IV NAUSEA, MRX1; Start 02/01/18 at 07:00; Stop 02/02/18 at 06:59 Lidocaine/ Epinephrine (LIDOCAINE 1%-EPI 1:100,000 Multi-Dose) 8 ml 1X ONCE IJ Last administered on 01/29/18at 14:01; Start 01/29/18 at 14:00; Stop 01/29/18 at 14:17; Status DC Heparin Sodium (Porcine) (Hep Lock Adult) 500 unit 1X ONCE IV Last administered on 01/29/18at 14:04; Start 01/29/18 at 14:00; Stop 01/29/18 at 14:17 ; Status DC Morphine Sulfate (Morphine Sulfate) 5 mg 1X ONCE IV Last administered on at 14:01; Start 01/29/18 at 14:00; Stop 01/29/18 at 14:17; Status DC Ondansetron HCl (Zofran) 4 mg PRN Q6HRS PRN IV NAUSEA/VOMITING Last administered on 01/29/18at 14:44; Start 01/29/18 at 14:45 Vancomycin HCl 500 mg/Sodium Chloride 100 ml @ 100 mls/hr 1X ONCE IV Last administered on 01/29/18at 21:04; Start 01/29/18 at 18:00; Stop 01/29/18 at 18:59 ; Status DC Sodium Chloride 1,000 ml @ 1,000 mls/hr Q1H PRN IV hypotension; Start 01/30/18 at 13:09; Stop 01/30/18 at 19:08; Status DC Sodium Chloride (Normal Saline Flush) 10 ml 1X PRN PRN IV AP catheter pack; Start 01/30/18 at 13:15; Stop 01/31/18 at 13:14; Status DC Sodium Chloride (Normal Saline Flush) 10 ml 1X PRN PRN IV DISP[employer] catheter pack; Start 01/30/18 at 13:15; Stop 01/31/18 at 13:14; Status DC Sodium Chloride 1,000 ml @ 400 mls/hr Q2H30M PRN IV PATENCY; Start 01/30/18 at 13:09; Stop 01/31/18 at 01:08; Status DC Info (PHARMACY MONITORING -- do not chart) 1 each PRN DAILY PRN MC SEE COMMENTS ; Start 01/30/18 at 13:15; Stop 01/30/18 at 13:17; Status DC Info (PHARMACY MONITORING -- do not chart) 1 each PRN DAILY PRN MC SEE COMMENTS ; Start 01/30/18 at 13:15 Lidocaine HCl (Lidocaine 1% 50ml Vial) 50 ml 1X ONCE INJ ; Start 01/30/18 at 15 :45; Stop 01/30/18 at 15:46; Status DC Vancomycin HCl 500 mg/Sodium Chloride 100 ml @ 100 mls/hr ONCE ONCE IV Last administered on 01/30/18at 20:49; Start 01/30/18 at 18:00; Stop 01/30/18 at 18:59 ; Status DC Cefazolin Sodium 1 gm/Sodium Chloride 500 ml @ 500 mls/hr 1X ONCE IRR ; Start 02/01/18 at 06:00; Stop 02/01/18 at 06:59; Status DC Lidocaine HCl (Xylocaine-Mpf 2% Vial) 2 ml STK-MED ONCE .ROUTE ; Start 01/28/18 at 12:00; Stop 02/01/18 at 08:30; Status DC Active Scripts Active Percocet 10-325 Mg Tablet (Oxycodone/Acetaminophen) 1 Each Tablet 1 Tab PO Q4HRS Brilinta (Ticagrelor) 90 Mg Tablet 90 Mg PO BID 30 Days Morphine Sulfate Er (Morphine Sulfate) 15 Mg Tablet.er 15 Mg PO BID Reported Brilinta (Ticagrelor) 90 Mg Tablet 90 Mg PO BID Lidocaine 1 Each Adh..patch 1 Each TP PRN DAILY PRN Calcitriol 0.25 Mcg Capsule 1 Cap PO DAILY Tegretol (Carbamazepine) 200 Mg Tablet 1 Tab PO BID Tramadol Hcl 50 Mg Tablet 50 Mg PO Q4HRS PRN Lantus Solostar (Insulin Glargine,Hum.rec.anlog) 100 Unit/1 Ml Insuln.pen 22 Unit SQ QHS Diflucan (Fluconazole) 100 Mg Tablet 100 Mg PO PRN Carvedilol 3.125 Mg Tablet 12.5 Mg PO BID Erythromycin (Erythromycin Base) 250 Mg Capsule.dr 250 Mg PO BID Cardizem Cd (Diltiazem Hcl) 180 Mg Cap.er.24h 120 Mg PO DAILY Amiodarone Hcl 200 Mg Tablet 1 Tab PO DAILY Nystatin 15 Gm Powder 1 Susanna TP PRN BID PRN Proventil Hfa Inhaler (Albuterol Sulfate) 6.7 Gm Hfa.aer.ad 2 Puff IH BID PRN Zofran (Ondansetron Hcl) 4 Mg Tablet 4 Mg PO Q6-8HRS PRN Nephro-Shabbir Tablet (Folic Acid/Vitamin B Comp W-C) 0.8 Mg Tablet 1 Tab PO DAILY Tricor (Fenofibrate Nanocrystallized) 145 Mg Tablet 1 Tab PO HS Lipitor (Atorvastatin Calcium) 80 Mg Tablet 80 Mg PO HS Niacin 500 Mg Tablet 500 Mg PO HS Novolog (Insulin Aspart) 100 Unit/1 Ml Cartridge 0 SQ TIDAC sliding scale Aspirin 325 Mg Tablet 325 Mg PO DAILY Furosemide 80 Mg Tablet 80 Mg PO BID Docusate Sodium 100 Mg Capsule 1 Cap PO PRN PRN Nitrostat (Nitroglycerin) 0.4 Mg Tab.subl 0.4 Mg SL PRN Q5MIN PRN Take as needed for chest pain Vitals/I & O Vital Sign - Last 24 Hours 01/31/18 01/31/18 01/31/18 01/31/18 09:30 09:31 09:31 09:31 Pulse 73 73 73 B/P (MAP) 132/56 132/56 132/56 O2 Delivery Nasal Cannula O2 Flow Rate 2.0 01/31/18 01/31/18 01/31/18 01/31/18 11:00 13:02 15:00 16:59 Temp 98.0 97.9 98.0 97.9 Pulse 71 67 Resp 18 18 B/P (MAP) 120/53 (75) 117/53 (74) Pulse Ox 100 100 O2 Delivery Room Air Nasal Cannula Room Air Nasal Cannula O2 Flow Rate 2.0 2.0 01/31/18 01/31/18 01/31/18 01/31/18 17:00 18:19 18:20 19:00 Temp 98.8 98.8 Pulse 71 75 Resp 16 B/P (MAP) 119/49 137/56 (83) Pulse Ox 100 O2 Delivery Nasal Cannula Nasal Cannula Room Air O2 Flow Rate 2.0 2.0 01/31/18 01/31/18 01/31/18 01/31/18 20:00 20:38 22:00 22:30 Resp 18 16 Pulse Ox 100 100 100 O2 Delivery Nasal Cannula Nasal Cannula Nasal Cannula Nasal Cannula O2 Flow Rate 2.0 2.0 2.0 2.0 01/31/18 02/01/18 02/01/18 02/01/18 23:00 00:40 02:58 07:00 Temp 98.2 99.0 97.7 98.2 99.0 97.7 Pulse 75 73 74 Resp 18 18 14 B/P (MAP) 116/53 (74) 124/57 (79) 125/54 (77) Pulse Ox 94 94 100 98 O2 Delivery Room Air Nasal Cannula Room Air Room Air O2 Flow Rate 2.0 Intake and Output 01/31/18 01/31/18 02/01/18 15:00 23:00 07:00 Intake Total 240 ml 200 ml 550 ml Balance 240 ml 200 ml 550 ml JEREMIAS VERDUGO MD Feb 01, 2018 08:37
[2018-02-01] MEDS: TICAGRELOR 90 MG TABLET. PO SCH ×2 (09:00→21:33)
[2018-02-01] MEDS: AMIODARONE HCL 200 MG TABLET. PO SCH (09:00)
[2018-02-01] MEDS: ERYTHROMYCIN BASE 250 MG TABLET PO SCH ×2 (09:00→21:32)
[2018-02-01] MEDS: FUROSEMIDE 80 MG TABLET. PO SCH ×2 (09:00→14:00)
[2018-02-01] MEDS: MORPHINE ER 15 MG TABLET.ER PO SCH ×2 (09:00→21:32)
[2018-02-01] MEDS: CALCITRIOL 0.25 MCG CAPSULE. PO SCH (09:00)
[2018-02-01] MEDS: FOLIC/VIT B COMP W-C (RENAL) TABLET. PO SCH (09:00)
[2018-02-01] MEDS: carBAMazepine 200 MG TABLET PO SCH ×2 (09:00→21:32)
[2018-02-01] MEDS: LACTOBACILLUS RHAMNOSUS GG 1 CAPSULE. PO SCH ×2 (09:00→21:32)
[2018-02-01] MEDS: HYDROmorphone 2 MG/ML VIAL IV PRN ×6 (10:32→21:33)
--- NOTE | 2018-02-01 10:47 | PDOC ---
Infectious Disease Note Subjective: Subjective pt says leg pain is under control for now has less rt groin and leg redness Denies F/C/N/V/D/SOA ROS: ROS Negative except for above. Vital Signs: Vital Signs Vital Signs Date Time Temp Pulse Resp B/P (MAP) Pulse Ox O2 Delivery O2 Flow Rate FiO2 02/01/18 10:32 Room Air 02/01/18 09:00 74 125/54 02/01/18 07:00 97.7 14 98 97.7 02/01/18 00:40 2.0 Physical Exam: PHYSICAL EXAM GENERAL: Propped up in bed, alert, NAD HEENT: Oral cavity clear NECK: Supple LUNGS: Clear. HEART: S1, S2 regular. ABDOMEN: Soft, NT EXTREMITIES: Left BKA. RLE edema with wound vac in place . NEUROLOGIC: Alert and responds appropriately Tunnelled [facility] (01/29) Medications: Inpatient Meds: Current Medications Medications (Trade) Dose Ordered Sig/Martin Start Time Stop Time Status Last Admin Dose Admin Albuterol Sulfate (Ventolin Neb Soln) 2.5 mg PRN BID PRN 01/27/18 12:30 01/27/18 21:59 2.5 MG Amiodarone HCl (Cordarone) 200 mg DAILY 01/27/18 12:30 01/31/18 09:31 200 MG Aspirin (Anthony Aspirin) 325 mg DAILY 01/27/18 12:30 01/28/18 14:26 DC 01/28/18 09:13 325 MG Aspirin (Ecotrin) 81 mg DAILYWBKFT 01/29/18 08:00 01/31/18 09:29 81 MG Atorvastatin Calcium (Lipitor) 80 mg QHS 01/27/18 21:00 01/31/18 20:38 80 MG Bacitracin (Bacitracin) 50,000 unit STK-MED ONCE 01/27/18 12:14 01/27/18 13:16 DC 01/27/18 13:58 50,000 UNIT Bacitracin 99798 unit/Sodium Chloride 3,000 ml @ 0 mls/hr 1X ONCE 01/27/18 13:15 01/27/18 13:16 Cancel Calcitriol (Rocaltrol) 0.25 mcg DAILY 01/27/18 12:30 01/31/18 09:29 0.25 MCG Carbamazepine (TEGretol) 200 mg BID 01/27/18 12:30 01/31/18 20:38 200 MG Carvedilol (Coreg) 12.5 mg BIDWMEALS 01/27/18 12:30 01/31/18 17:00 12.5 MG Cefazolin Sodium 1 gm/Sodium Chloride 500 ml @ 500 mls/hr 1X ONCE 02/01/18 06:00 02/01/18 06:59 DC Cefepime HCl (Maxipime) 1 gm Q24H 01/28/18 10:00 01/31/18 10:20 1 GM Cefepime HCl 1 gm/ Dextrose 50 ml @ 100 mls/hr DAILY 01/29/18 09:00 UNV Clopidogrel Bisulfate (Plavix) 75 mg DAILYWBKFT 01/28/18 08:00 01/28/18 14:28 DC 01/28/18 09:13 75 MG Dexamethasone Sodium Phosphate (Decadron) 20 mg STK-MED ONCE 01/27/18 13:11 01/27/18 13:12 DC Dextrose (Dextrose 50%-Water Syringe) 12.5 gm PRN Q15MIN PRN 01/28/18 14:45 Diltiazem HCl (Cardizem 24hr Cd) 120 mg DAILY 01/27/18 12:30 01/31/18 09:30 120 MG Diphenhydramine HCl (Benadryl) 25 mg PRN Q6HRS PRN 01/28/18 14:15 Erythromycin (E-Mycin) 250 mg BID 01/27/18 21:00 01/31/18 20:38 250 MG Fenofibrate (Lofibra) 134 mg QHS 01/27/18 21:00 01/31/18 20:38 134 MG Fentanyl Citrate (Fentanyl 2ml Vial) 50 mcg PRN Q5MIN PRN 01/27/18 10:45 01/27/18 18:00 DC Furosemide (Lasix) 80 mg BID92 01/27/18 12:30 01/31/18 15:21 80 MG Gentamicin Sulfate 235 mg/ Dextrose 105.875 ml @ 105.875 mls/hr 1X ONCE 01/27/18 16:00 01/27/18 16:59 DC 01/27/18 19:56 105.875 MLS/HR Heparin Sodium (Porcine) (Hep Lock Adult) 500 unit 1X ONCE 01/29/18 14:00 01/29/18 14:17 DC 01/29/18 14:04 500 UNIT Hydralazine HCl (Apresoline) 10 mg PRN TID PRN 01/28/18 14:45 Hydromorphone HCl (Dilaudid) 0.5 mg PRN Q10MIN PRN 02/01/18 07:00 02/02/18 06:59 Influenza Virus Vaccine (Afluria Trivalent [id number] Syringe) 0.5 ml ONCE ONCE 01/27/18 09:00 01/27/18 09:01 DC 01/27/18 09:00 0.5 ML Info (PHARMACY MONITORING -- do not chart) 1 each PRN DAILY PRN 01/30/18 13:15 Insulin Glargine (Lantus) 22 units QHS 01/27/18 21:00 01/30/18 23:31 10 UNITS Insulin Human Lispro (HumaLOG) 0-5 UNITS TIDWMEALS 01/28/18 17:00 01/29/18 12:25 4 UNITS Lactobacillus Rhamnosus (Culturelle) 1 cap BID 01/27/18 21:00 01/31/18 20:39 1 CAP Lidocaine (Lidoderm) 1 patch PRN DAILY PRN 01/27/18 09:00 Lidocaine HCl (Lidocaine 1% 50ml Vial) 50 ml 1X ONCE 01/30/18 15:45 01/30/18 15:46 DC Lidocaine HCl (Xylocaine-Mpf 1% 2ml Vial) 2 ml PRN 1X PRN 02/01/18 07:00 02/02/18 06:59 Lidocaine HCl (Xylocaine-Mpf 2% Vial) 2 ml STK-MED ONCE 01/28/18 12:00 02/01/18 08:30 DC Lidocaine/ Epinephrine (LIDOCAINE 1%-EPI 1:100,000 Multi-Dose) 8 ml 1X ONCE 01/29/18 14:00 01/29/18 14:17 DC 01/29/18 14:01 8 ML Metronidazole 100 ml @ 100 mls/hr Q12HR 01/28/18 10:00 02/01/18 10:33 100 MLS/HR Midazolam HCl (Versed) 2 mg STK-MED ONCE 01/29/18 13:23 01/29/18 13:25 DC Miscellaneous (Lidoderm Patch Removal) 1 ea QHS 01/27/18 21:00 01/29/18 21:00 1 EA Morphine Sulfate (Morphine Sulfate) 5 mg 1X ONCE 01/29/18 14:00 01/29/18 14:17 DC 01/29/18 14:01 5 MG Morphine Sulfate (Ms Contin) 15 mg BID 01/27/18 12:30 01/31/18 20:38 15 MG Niacin (Slo-Niacin) 500 mg QHS 01/27/18 21:00 01/31/18 20:38 500 MG Nitroglycerin (Nitrostat) 0.4 mg PRN Q5MIN PRN 01/27/18 12:00 Non-Formulary Medication (Albuterol Sulfate (Proventil Hfa Inhaler)) 2 puff BID PRN 01/27/18 12:00 UNV Non-Formulary Medication (Fluconazole (Diflucan)) 100 mg PRN 01/27/18 12:00 UNV Nystatin (Nystop) 1 erich PRN BID PRN 01/27/18 12:00 Ondansetron HCl (Zofran Odt) 4 mg PRN Q6HRS PRN 01/27/18 12:15 Ondansetron HCl (Zofran) 4 mg PRN Q6HRS PRN 01/29/18 14:45 01/29/18 14:44 4 MG Oxycodone/ Acetaminophen (Percocet 10/325) 1 tab PRN Q4HRS PRN 01/29/18 07:45 01/31/18 16:59 1 TAB Pharmacy Consult (C.diff Med Screen By Rx) 1 each 1X ONCE 01/27/18 01:00 01/27/18 01:01 Cancel Prochlorperazine Edisylate (Compazine) 5 mg PACU PRN PRN 02/01/18 07:00 02/02/18 06:59 Promethazine HCl (Phenergan Im) 12.5 mg 1X ONCE 01/29/18 12:45 01/29/18 12:46 DC Promethazine HCl (Phenergan Supp) 12.5 mg 1X ONCE 01/29/18 12:15 01/29/18 12:36 DC Propofol 20 ml @ As Directed STK-MED ONCE 01/27/18 12:38 10/3/18 12:39 DC Ringer's Solution 1,000 ml @ 30 mls/hr Q24H 02/01/18 07:00 02/01/18 18:59 Sevoflurane (Ultane) 30 ml STK-MED ONCE 01/27/18 13:11 01/27/18 13:12 DC Sodium Chloride 1,000 ml @ 400 mls/hr Q2H30M PRN 01/30/18 13:09 01/31/18 01:08 DC Sodium Chloride (Normal Saline Flush) 10 ml 1X PRN PRN 01/30/18 13:15 01/31/18 13:14 DC Ticagrelor (Brilinta) 90 mg BID 01/28/18 21:00 01/31/18 20:38 90 MG Tramadol HCl (Ultram) 50 mg PRN Q4HRS PRN 01/27/18 12:00 Vancomycin HCl (Vanco Per Pharmacy) 1 each PRN DAILY PRN 01/26/18 22:45 01/31/18 17:20 1 EACH Vancomycin HCl (Vancomycin Random Level) 1 each 1X ONCE 01/28/18 05:00 01/28/18 05:01 DC 01/28/18 05:00 1 EACH Vancomycin HCl 1.75 gm/Sodium Chloride 500 ml @ 250 mls/hr 1X ONCE 01/26/18 23:00 01/27/18 00:59 DC 01/26/18 23:53 250 MLS/HR Vancomycin HCl 500 mg/Sodium Chloride 100 ml @ 100 mls/hr ONCE ONCE 01/30/18 18:00 01/30/18 18:59 DC 01/30/18 20:49 100 MLS/HR Vitamin B Complex/ Vitamin C (Melly-Shabbir) 1 tab DAILY 01/27/18 12:30 01/31/18 09:30 1 TAB Labs: Lab Laboratory Tests Test 01/31/18 11:44 01/31/18 16:54 01/31/18 20:09 02/01/18 07:30 Glucose (Fingerstick) 129 mg/dL (70-99) 128 mg/dL (70-99) 143 mg/dL (70-99) 105 mg/dL (70-99) Micro Micro 01/26/18 Blood Culture - Preliminary, Resulted NO GROWTH AFTER 4 DAYS 01/27 ANAEROBIC RES 1 Preliminary No anaerobes recovered in 24 hours. AEROBIC RES 1 Final Klebsiella pneumoniae MICS are expressed in micrograms per mL Antibiotic RSLT#1 RSLT#2 Amoxicillin/Clavulanic Acid S<=2 Ampicillin R>=32 Cefepime S<=0.12 Ceftriaxone S<=0.25 Cefuroxime S =4 Ciprofloxacin S =1 Ertapenem S<=0.12 Gentamicin S<=1 Imipenem S<=0.25 Levofloxacin S =1 Meropenem S<=0.25 Piperacillin/Tazobactam S<=4 Tetracycline S<=1 Tobramycin S<=1 Trimethoprim/Sulfa S<=20 Objective: Assessment: Right leg surgery site infection s/p excisional debridement; muscle flap & wound VAC placement on 01/27 C/S + . Klebsiella (R amp) PAD s/p leg bypass on 01/06 ESRD Multiple antibiotic allergies Amiodarone therapy h/o VRE, MRSA, c. diff Plan: Plan of Care DC VANC Cont cefepime and Flagyl -gent x 1 on 01/27 Random Vanc trough 18.0 Probiotics f/u cultures Pain management per primary Further debridement and wound vac change on Thursday 02/01 Supportive care GRACIELA LÓPEZ MD Feb 01, 2018 10:47
[2018-02-01 12:05] LABS: BASO # 0.1 x10^3/uL (0.0-0.2); BASO % 1 % (0-3); EOS # 0.3 x10^3/uL (0.0-0.7); EOS % 2 % (0-3); HEMATOCRIT 31.4 % (36.0-47.0); HEMOGLOBIN 10.3 g/dL (12.0-15.5); LYMPH # 1.1 x10^3/uL (1.0-4.8); LYMPH % 8 % (24-48); MEAN CORPUSCULAR HEMOGLOBIN 31 pg (25-35); MEAN CORPUSCULAR HGB CONC 33 g/dL (31-37); MEAN CORPUSCULAR VOLUME 95 fL (79-100); MONO # 0.9 x10^3/uL (0.0-1.1); MONO % 7 % (0-9); NEUT # 10.7 x10^3uL (1.8-7.7); NEUT % 82 % (31-73); PLATELET COUNT 381 x10^3/uL (140-400); RED CELL DISTRIBUTION WIDTH 17.6 % (11.5-14.5)
[2018-02-01] MEDS ORDERED: SURGICEL FIBRILLAR 1X2 EACH. ONE (12:05)
--- NOTE | 2018-02-01 12:10 | PDOC ---
Renal-Progress Notes Subjective Notes Notes NO PAIN History of Present Illness Hx of present illness STABLE Vitals Vitals Vital Signs Date Time Temp Pulse Resp B/P (MAP) Pulse Ox O2 Delivery O2 Flow Rate FiO2 02/01/18 11:00 95.7 79 14 141/61 (87) 98 Room Air 95.7 02/01/18 00:40 2.0 Weight Weight [ ] I.O. Intake and Output Intake and Output 02/01/18 07:00 Intake Total 990 ml Balance 990 ml Intake Oral 990 ml Labs Labs Laboratory Tests Test 01/31/18 16:54 01/31/18 20:09 02/01/18 07:30 02/01/18 11:18 Glucose (Fingerstick) 128 mg/dL (70-99) 143 mg/dL (70-99) 105 mg/dL (70-99) 94 mg/dL (70-99) Micro Micro Microbiology 01/26/18 Blood Culture - Final, Complete NO GROWTH AFTER 5 DAYS 01/27/18 Anaerobic/Aerobic Culture - Preliminary, Resulted 01/27/18 Anaerobic Culture Result 1 (ROSALIND) - Preliminary, Resulted 01/27/18 Aerobic Culture - Final, Resulted 01/27/18 Aerobic Culture Result 1 (ROSALIND) - Final, Resulted 01/27/18 Antimicrobic Susceptibility - Final, Resulted 01/27/18 Gram Stain - Final, Resulted 01/27/18 Gram Stain Result 1 (ROSALIND) - Final, Resulted 01/27/18 Gram Stain Result 2 (ROSALIND) - Final, Resulted Review of Systems Constitutional: yes: weakness, alert, oriented Ears/Nose/Throat: Yes: no symptom reported Eyes: Yes: no symptom reported Pulmonary: Yes no symptom reported Cardiovascular: Yes no symptom reported Gastrointestional: Yes: no symptom reported Genitourinary: Yes: no symptom reported Musculoskeletal: Yes: leg pain Skin: Yes color change Psychiatric/Neurological: Yes: no symptom reported Physical Exam General Appearance: no apparent distress Respiratory: bilateral CTA Heart: S1S2 Abdomen: soft, bowel sounds present Genitourinary: bladder flat Extremities: pulses present Assessment Assessment IMP ESRD-ON PD BUT HAS FUNCTIONING RIGHT ARM AVF ANEMIA DM II HTN PAD R LE CELLULITIS PLAN HD TOMORROW PT WANTS TO DO HD WHILE HERE BACK TO PD WHEN HOME ANTIBIOTICS WILL FOLLOW CHARLY ZAVALA MD Feb 01, 2018 12:10
[2018-02-01] MEDS: CEFEPIME HCL IV Push 1 GM VIAL. IVP SCH (12:18)
[2018-02-01 12:23] LABS: ALBUMIN 1.8 g/dL (3.4-5.0); CALCIUM 8.1 mg/dL (8.5-10.1); CREATININE 5.2 mg/dL (0.6-1.0); GFR 8.7; PHOSPHORUS 5.4 mg/dL (2.6-4.7)
[2018-02-01] MEDS ORDERED: LIDOCAINE 1% PF 30 ML VIAL. INJ ONE (13:15)
[2018-02-01] MEDS ORDERED: BACITRACIN 50,000 UNIT VIAL. IRR ONE (13:32)
[2018-02-01] MEDS: IV NORMAL SALINE 1000ML BAG 1,000 ML IV SCH (13:45)
[2018-02-01] MEDS ORDERED: MIDAZOLAM HCL/PF 2 MG/2 ML VIAL. ONE ×2 (14:24→14:25)
[2018-02-01] MEDS ORDERED: MORPHINE SULFATE 10 MG/ML VIAL. ONE (14:24)
[2018-02-01] MEDS ORDERED: DEXAMETHASONE SOD PHOS 20 MG/5 ML VIAL. ONE (14:25)
[2018-02-01] MEDS ORDERED: ONDANSETRON PF 4 MG/2 ML VIAL. ONE (14:25)
[2018-02-01] MEDS ORDERED: PROPOFOL 20 ML IV ONE (14:25)
--- NOTE | 2018-02-01 15:15 | PDOC4 ---
Operative Note Operative Note Operative report dictated pre-op: recent extensive right groin debridement with satorius muscle flap for infection and exposed bypass with necrotic skin and subcutaneous tissue in the wound bed post-op: same Operation: right groin open wound sharp excisional debridement with wound VAC dressing Surgeon: Dr. Reina Tile Sorter: Dr. Middleton Blood loss: 10ml Anesthesia: general MARIANA REINA MD Feb 01, 2018 15:15
[2018-02-01] MEDS: MORPHINE SULFATE 2 MG/ML VIAL. IV PRN ×2 (15:34→15:46)
--- NOTE | 2018-02-01 15:43 | OP ---
DATE OF SURGERY: 02/01/2018 PREOPERATIVE DIAGNOSES: Recent extensive right groin sharp excisional debridement and sartorius muscle flap for an infected right groin with exposed vein bypass graft, now with further necrotic tissue of her skin and subcutaneous tissue within the wound bed. POSTOPERATIVE DIAGNOSES: Recent extensive right groin sharp excisional debridement and sartorius muscle flap for an infected right groin with exposed vein bypass graft, now with further necrotic tissue of her skin and subcutaneous tissue within the wound bed. OPERATION PERFORMED: 1. Right groin sharp excisional debridement of necrotic skin and subcutaneous tissue throughout the wound bed. The total wound measurements were approximately 32 cm in length x 8 cm in width x 4 cm in depth. We excised areas of the edges of the wound, which had necrotic skin and subcutaneous tissue. 2. Right groin wound VAC placement. SURGEON: Mariah Reina M.D. DISTRIBUTOR CLEANER: Felipe Middleton MD ANESTHESIA USED: General anesthesia. INDICATIONS: The patient is a 52-year-old female who in the recent past underwent a right femoral to below knee popliteal artery bypass graft with great saphenous vein. She developed a severe right groin infection, which was widely debrided along with a sartorius muscle flap to close her bypass graft done on 01/27/2018. With her recent wound VAC change she had some more necrotic tissue in the skin and subcutaneous tissue seen within areas of the wound edges, which needed debridement. I plan on doing a sharp excisional debridement of her right groin wound and replacement of the wound VAC in the operating room. DETAILS OF THE OPERATION: The patient was brought to the operating room and placed on table in supine position. She received general anesthesia and monitored throughout the case by the anesthesiologist. Her right groin and right leg circumferentially were prepped and draped in normal sterile fashion. Prior to prepping, we did remove the wound VAC. We explored the wound. The sartorius muscle flap, the muscle was very pink and healthy and reacted to electrocautery. It was fully covering the bypass graft. There was necrotic skin and subcutaneous tissue within the superior portion of the wound, which was sharply excised down to healthy tissue. There was also necrotic tissue along the medial edge of the wound, so we excised this necrotic skin and subcutaneous tissue. There were further areas which were curetted along the wound, but the underlying wound bed and muscle all appeared healthy. We continued debridement till there was no further necrotic tissue. We irrigated with copious amounts of antibiotic solution. Hemostasis was gained with electrocautery. Wound VAC sponges were left within the wound and sealed and placed to suction. She tolerated the surgery with no immediate complications. MARIAH REINA MD DR: CHANG/guillermo JOB#: [id number] / [id number]
[2018-02-01] MEDS: PATCH REMOVAL. MC SCH (21:00)
[2018-02-01] MEDS: NIACIN ER 500 MG TABLET.ER PO SCH (21:32)
[2018-02-01] MEDS: FENOFIBRATE,MICRONIZED 134 MG CAPSULE PO SCH (21:32)
[2018-02-01] MEDS: ATORVASTATIN CALCIUM 40 MG TABLET. PO SCH (21:32)
[2018-02-01] MEDS: INSULIN GLARGINE 300 UNITS/3 ML INSULN.PEN. SQ SCH (21:37)
[2018-02-01] MEDS: DARBEPOETIN ALFA 60 MCG/0.3 ML DISP.SYRIN. SQ SCH (21:38)
[2018-02-01] MEDS: ONDANSETRON PF 4 MG/2 ML VIAL. IV PRN (22:42)
[2018-02-02] MEDS: IV NORMAL SALINE 1000ML BAG 1,000 ML IV SCH (00:15)
[2018-02-02 03:00] VITALS: BP 160/69
[2018-02-02 04:38] LABS: BASO % 0 % (0-3); EOS % 0 % (0-3); HEMATOCRIT 31.9 % (36.0-47.0); HEMOGLOBIN 10.8 g/dL (12.0-15.5); LYMPH # 0.3 x10^3/uL (1.0-4.8); LYMPH % 3 % (24-48); MEAN CORPUSCULAR HEMOGLOBIN 32 pg (25-35); MEAN CORPUSCULAR HGB CONC 34 g/dL (31-37); MEAN CORPUSCULAR VOLUME 94 fL (79-100); MONO # 0.2 x10^3/uL (0.0-1.1); MONO % 2 % (0-9); NEUT % 95 % (31-73); PLATELET COUNT 403 x10^3/uL (140-400); RED BLOOD COUNT 3.38 x10^6/uL (3.50-5.40); RED CELL DISTRIBUTION WIDTH 17.5 % (11.5-14.5); WHITE BLOOD COUNT 9.5 x10^3/uL (4.0-11.0)
[2018-02-02 04:57] LABS: ALBUMIN 1.8 g/dL (3.4-5.0); CALCIUM 8.1 mg/dL (8.5-10.1); CREATININE 5.9 mg/dL (0.6-1.0); GFR 7.5; PHOSPHORUS 6.8 mg/dL (2.6-4.7); POTASSIUM 4.7 mmol/L (3.5-5.1)
[2018-02-02 07:25] VITALS: BP 175/71
[2018-02-02] MEDS: INSULIN LISPRO 300 UNITS/3 ML INSULN.PEN. SQ SCH ×3 (08:00→17:34)
[2018-02-02] MEDS: CARVEDILOL 12.5 MG TABLET. PO SCH ×2 (08:00→17:31)
[2018-02-02] MEDS: ASPIRIN ENTERIC COATED 81 MG TABLET.DR. PO SCH (08:00)
[2018-02-02] MEDS: AMIODARONE HCL 200 MG TABLET. PO SCH (09:00)
[2018-02-02] MEDS: ERYTHROMYCIN BASE 250 MG TABLET PO SCH ×2 (09:00→20:59)
[2018-02-02] MEDS: FUROSEMIDE 80 MG TABLET. PO SCH ×2 (09:00→16:15)
[2018-02-02] MEDS: carBAMazepine 200 MG TABLET PO SCH ×2 (09:00→20:59)
[2018-02-02] MEDS: LACTOBACILLUS RHAMNOSUS GG 1 CAPSULE. PO SCH ×2 (09:00→21:00)
[2018-02-02] MEDS: TICAGRELOR 90 MG TABLET. PO SCH ×2 (09:00→21:00)
[2018-02-02] MEDS: FOLIC/VIT B COMP W-C (RENAL) TABLET. PO SCH (09:00)
[2018-02-02] MEDS: MORPHINE ER 15 MG TABLET.ER PO SCH ×2 (09:00→20:59)
[2018-02-02] MEDS: CALCITRIOL 0.25 MCG CAPSULE. PO SCH (09:00)
[2018-02-02] MEDS ORDERED: IV NORMAL SALINE 1000ML BAG 1,000 ML IV PRN ×2 (09:39)
[2018-02-02] MEDS ORDERED: DIALYSIS PATIENT. MC PRN ×2 (09:45)
[2018-02-02] MEDS ORDERED: ALBUMIN HUMAN 25% 200 ML IV PRN (09:45)
[2018-02-02] MEDS: ONDANSETRON PF 4 MG/2 ML VIAL. IV PRN (09:51)
[2018-02-02] MEDS: CEFEPIME HCL IV Push 1 GM VIAL. IVP SCH (10:00)
[2018-02-02] MEDS: HYDROmorphone 2 MG/ML VIAL IV PRN ×3 (10:25→21:01)
--- NOTE | 2018-02-02 10:34 | PDOC ---
Infectious Disease Note Subjective: Subjective pt underwent repeat I and D of rt groin 02/01 undergoing dialysis currently has some nausea intermitently , no vomiting has some leg pain rt groin and leg redness improving slowly Denies F/C/N/V/D/SOA ROS: ROS Negative except for above. Vital Signs: Vital Signs Vital Signs Date Time Temp Pulse Resp B/P (MAP) Pulse Ox O2 Delivery O2 Flow Rate FiO2 02/02/18 10:25 Room Air 02/02/18 07:54 98 3.0 02/02/18 07:25 97.9 81 16 175/71 (105) 97.9 Physical Exam: PHYSICAL EXAM GENERAL: Propped up in bed, alert, NAD HEENT: Oral cavity clear NECK: Supple LUNGS: Clear. HEART: S1, S2 regular. ABDOMEN: Soft, NT EXTREMITIES: Left BKA. RLE edema with wound vac in place . NEUROLOGIC: Alert and responds appropriately Tunnelled [facility] (01/29) Medications: Inpatient Meds: Current Medications Medications (Trade) Dose Ordered Sig/Martin Start Time Stop Time Status Last Admin Dose Admin Albumin Human 200 ml @ 200 mls/hr 1X PRN PRN 02/02/18 09:45 02/02/18 15:44 Albuterol Sulfate (Ventolin Neb Soln) 2.5 mg PRN BID PRN 01/27/18 12:30 01/27/18 21:59 2.5 MG Amiodarone HCl (Cordarone) 200 mg DAILY 01/27/18 12:30 01/31/18 09:31 200 MG Aspirin (Anthony Aspirin) 325 mg DAILY 01/27/18 12:30 01/28/18 14:26 DC 01/28/18 09:13 325 MG Aspirin (Ecotrin) 81 mg DAILYWBKFT 01/29/18 08:00 01/31/18 09:29 81 MG Atorvastatin Calcium (Lipitor) 80 mg QHS 01/27/18 21:00 02/01/18 21:32 80 MG Bacitracin (Bacitracin) 50,000 unit STK-MED ONCE 02/01/18 13:32 02/01/18 14:32 DC 02/01/18 14:55 50,000 UNIT Bacitracin 65235 unit/Sodium Chloride 3,000 ml @ 0 mls/hr 1X ONCE 01/27/18 13:15 01/27/18 13:16 Cancel Calcitriol (Rocaltrol) 0.25 mcg DAILY 01/27/18 12:30 01/31/18 09:29 0.25 MCG Carbamazepine (TEGretol) 200 mg BID 01/27/18 12:30 02/01/18 21:32 200 MG Carvedilol (Coreg) 12.5 mg BIDWMEALS 01/27/18 12:30 02/01/18 17:20 12.5 MG Cefazolin Sodium 1 gm/Sodium Chloride 500 ml @ 500 mls/hr 1X ONCE 02/01/18 06:00 02/01/18 06:59 DC Cefepime HCl (Maxipime) 1 gm Q24H 01/28/18 10:00 02/01/18 12:18 1 GM Cefepime HCl 1 gm/ Dextrose 50 ml @ 100 mls/hr DAILY 01/29/18 09:00 UNV Cellulose (Surgicel Fibrillar 1x2) 1 each STK-MED ONCE 02/01/18 12:05 02/01/18 13:06 DC Clopidogrel Bisulfate (Plavix) 75 mg DAILYWBKFT 01/28/18 08:00 01/28/18 14:28 DC 01/28/18 09:13 75 MG Darbepoetin Mauricio (Aranesp) 60 mcg WEEKLYHS 02/01/18 21:00 02/01/18 21:38 60 MCG Dexamethasone Sodium Phosphate (Decadron) 20 mg STK-MED ONCE 02/01/18 14:25 02/01/18 14:26 DC Dextrose (Dextrose 50%-Water Syringe) 12.5 gm PRN Q15MIN PRN 01/28/18 14:45 Diltiazem HCl (Cardizem 24hr Cd) 120 mg DAILY 01/27/18 12:30 01/31/18 09:30 120 MG Diphenhydramine HCl (Benadryl) 25 mg PRN Q6HRS PRN 01/28/18 14:15 Erythromycin (E-Mycin) 250 mg BID 01/27/18 21:00 02/01/18 21:32 250 MG Fenofibrate (Lofibra) 134 mg QHS 01/27/18 21:00 02/01/18 21:32 134 MG Fentanyl Citrate (Fentanyl 2ml Vial) 50 mcg PRN Q5MIN PRN 01/27/18 10:45 01/27/18 18:00 DC Furosemide (Lasix) 80 mg BID92 01/27/18 12:30 01/31/18 15:21 80 MG Gentamicin Sulfate 235 mg/ Dextrose 105.875 ml @ 105.875 mls/hr 1X ONCE 01/27/18 16:00 01/27/18 16:59 DC 01/27/18 19:56 105.875 MLS/HR Heparin Sodium (Porcine) (Hep Lock Adult) 500 unit 1X ONCE 01/29/18 14:00 01/29/18 14:17 DC 01/29/18 14:04 500 UNIT Hydralazine HCl (Apresoline) 10 mg PRN TID PRN 01/28/18 14:45 Hydromorphone HCl (Dilaudid) 0.5 mg PRN Q10MIN PRN 02/01/18 07:00 02/02/18 06:59 DC 02/01/18 16:08 0.5 MG Influenza Virus Vaccine (Afluria Trivalent [id number] Syringe) 0.5 ml ONCE ONCE 01/27/18 09:00 01/27/18 09:01 DC 01/27/18 09:00 0.5 ML Info (PHARMACY MONITORING -- do not chart) 1 each PRN DAILY PRN 02/02/18 09:45 UNV Insulin Glargine (Lantus) 22 units QHS 01/27/18 21:00 02/01/18 21:37 22 UNITS Insulin Human Lispro (HumaLOG) 0-5 UNITS TIDWMEALS 01/28/18 17:00 01/29/18 12:25 4 UNITS Lactobacillus Rhamnosus (Culturelle) 1 cap BID 01/27/18 21:00 02/01/18 21:32 1 CAP Lidocaine (Lidoderm) 1 patch PRN DAILY PRN 01/27/18 09:00 Lidocaine HCl (Lidocaine 1% 50ml Vial) 50 ml 1X ONCE 01/30/18 15:45 01/30/18 15:46 DC Lidocaine HCl (Xylocaine 1% Pf 30ml Vial) 30 ml 1X ONCE 02/01/18 13:15 02/01/18 13:18 DC Lidocaine HCl (Xylocaine-Mpf 1% 2ml Vial) 2 ml PRN 1X PRN 02/01/18 07:00 02/02/18 06:59 DC Lidocaine HCl (Xylocaine-Mpf 2% Vial) 2 ml STK-MED ONCE 01/28/18 12:00 02/01/18 08:30 DC Lidocaine/ Epinephrine (LIDOCAINE 1%-EPI 1:100,000 Multi-Dose) 8 ml 1X ONCE 01/29/18 14:00 01/29/18 14:17 DC 01/29/18 14:01 8 ML Metronidazole 100 ml @ 100 mls/hr Q12HR 01/28/18 10:00 02/01/18 21:35 100 MLS/HR Midazolam HCl (Versed) 2 mg STK-MED ONCE 02/01/18 14:25 02/01/18 14:26 DC Miscellaneous (Lidoderm Patch Removal) 1 ea QHS 01/27/18 21:00 01/29/18 21:00 1 EA Morphine Sulfate (Morphine Sulfate) 10 mg STK-MED ONCE 02/01/18 14:24 02/01/18 14:25 DC Morphine Sulfate (Ms Contin) 15 mg BID 01/27/18 12:30 02/01/18 21:32 15 MG Niacin (Slo-Niacin) 500 mg QHS 01/27/18 21:00 02/01/18 21:32 500 MG Nitroglycerin (Nitrostat) 0.4 mg PRN Q5MIN PRN 01/27/18 12:00 Non-Formulary Medication (Albuterol Sulfate (Proventil Hfa Inhaler)) 2 puff BID PRN 01/27/18 12:00 UNV Non-Formulary Medication (Fluconazole (Diflucan)) 100 mg PRN 01/27/18 12:00 UNV Nystatin (Nystop) 1 erich PRN BID PRN 01/27/18 12:00 Ondansetron HCl (Zofran Odt) 4 mg PRN Q6HRS PRN 01/27/18 12:15 Ondansetron HCl (Zofran) 4 mg STK-MED ONCE 02/01/18 14:25 02/01/18 14:26 DC Oxycodone/ Acetaminophen (Percocet 10/325) 1 tab PRN Q4HRS PRN 01/29/18 07:45 01/31/18 16:59 1 TAB Pharmacy Consult (C.diff Med Screen By Rx) 1 each 1X ONCE 01/27/18 01:00 01/27/18 01:01 Cancel Prochlorperazine Edisylate (Compazine) 5 mg PACU PRN PRN 02/01/18 07:00 02/02/18 06:59 DC Promethazine HCl (Phenergan Im) 12.5 mg 1X ONCE 01/29/18 12:45 01/29/18 12:46 DC Promethazine HCl (Phenergan Supp) 12.5 mg 1X ONCE 01/29/18 12:15 01/29/18 12:36 DC Propofol 20 ml @ As Directed STK-MED ONCE 02/01/18 14:25 02/01/18 14:26 DC Ringer's Solution 1,000 ml @ 30 mls/hr Q24H 02/01/18 07:00 02/01/18 18:59 DC Sevoflurane (Ultane) 30 ml STK-MED ONCE 01/27/18 13:11 01/27/18 13:12 DC Sodium Chloride 1,000 ml @ 400 mls/hr Q2H30M PRN 02/02/18 09:39 02/02/18 21:38 Sodium Chloride (Normal Saline Flush) 10 ml 1X PRN PRN 01/30/18 13:15 01/31/18 13:14 DC Ticagrelor (Brilinta) 90 mg BID 01/28/18 21:00 02/01/18 21:33 90 MG Tramadol HCl (Ultram) 50 mg PRN Q4HRS PRN 01/27/18 12:00 Vancomycin HCl (Vanco Per Pharmacy) 1 each PRN DAILY PRN 01/26/18 22:45 02/01/18 11:41 DC 01/31/18 17:20 1 EACH Vancomycin HCl (Vancomycin Random Level) 1 each 1X ONCE 01/28/18 05:00 01/28/18 05:01 DC 01/28/18 05:00 1 EACH Vancomycin HCl 1.75 gm/Sodium Chloride 500 ml @ 250 mls/hr 1X ONCE 01/26/18 23:00 01/27/18 00:59 DC 01/26/18 23:53 250 MLS/HR Vancomycin HCl 500 mg/Sodium Chloride 100 ml @ 100 mls/hr QMWF 02/03/18 16:00 Vitamin B Complex/ Vitamin C (Melly-Shabbir) 1 tab DAILY 01/27/18 12:30 01/31/18 09:30 1 TAB Labs: Lab Laboratory Tests Test 02/01/18 11:15 02/01/18 11:18 02/01/18 15:24 02/01/18 16:43 White Blood Count 13.0 x10^3/uL (4.0-11.0) Red Blood Count 3.30 x10^6/uL (3.50-5.40) Hemoglobin 10.3 g/dL (12.0-15.5) Hematocrit 31.4 % (36.0-47.0) Mean Corpuscular Volume 95 fL (79-100) Mean Corpuscular Hemoglobin 31 pg (25-35) Mean Corpuscular Hemoglobin Concent 33 g/dL (31-37) Red Cell Distribution Width 17.6 % (11.5-14.5) Platelet Count 381 x10^3/uL (140-400) Neutrophils (%) (Auto) 82 % (31-73) Lymphocytes (%) (Auto) 8 % (24-48) Monocytes (%) (Auto) 7 % (0-9) Eosinophils (%) (Auto) 2 % (0-3) Basophils (%) (Auto) 1 % (0-3) Neutrophils # (Auto) 10.7 x10^3uL (1.8-7.7) Lymphocytes # (Auto) 1.1 x10^3/uL (1.0-4.8) Monocytes # (Auto) 0.9 x10^3/uL (0.0-1.1) Eosinophils # (Auto) 0.3 x10^3/uL (0.0-0.7) Basophils # (Auto) 0.1 x10^3/uL (0.0-0.2) Sodium Level 143 mmol/L (136-145) Potassium Level 4.0 mmol/L (3.5-5.1) Chloride Level 102 mmol/L (98-107) Carbon Dioxide Level 31 mmol/L (21-32) Anion Gap 10 (6-14) Blood Urea Nitrogen 35 mg/dL (7-20) Creatinine 5.2 mg/dL (0.6-1.0) Estimated GFR (Cockcroft-Gault) 8.7 Glucose Level 114 mg/dL (70-99) Calcium Level 8.1 mg/dL (8.5-10.1) Phosphorus Level 5.4 mg/dL (2.6-4.7) Albumin 1.8 g/dL (3.4-5.0) Glucose (Fingerstick) 94 mg/dL (70-99) 85 mg/dL (70-99) 105 mg/dL (70-99) Test 02/01/18 21:20 02/02/18 04:15 02/02/18 08:39 Glucose (Fingerstick) 192 mg/dL (70-99) 333 mg/dL (70-99) White Blood Count 9.5 x10^3/uL (4.0-11.0) Red Blood Count 3.38 x10^6/uL (3.50-5.40) Hemoglobin 10.8 g/dL (12.0-15.5) Hematocrit 31.9 % (36.0-47.0) Mean Corpuscular Volume 94 fL (79-100) Mean Corpuscular Hemoglobin 32 pg (25-35) Mean Corpuscular Hemoglobin Concent 34 g/dL (31-37) Red Cell Distribution Width 17.5 % (11.5-14.5) Platelet Count 403 x10^3/uL (140-400) Neutrophils (%) (Auto) 95 % (31-73) Lymphocytes (%) (Auto) 3 % (24-48) Monocytes (%) (Auto) 2 % (0-9) Eosinophils (%) (Auto) 0 % (0-3) Basophils (%) (Auto) 0 % (0-3) Neutrophils # (Auto) 9.0 x10^3uL (1.8-7.7) Lymphocytes # (Auto) 0.3 x10^3/uL (1.0-4.8) Monocytes # (Auto) 0.2 x10^3/uL (0.0-1.1) Eosinophils # (Auto) 0.0 x10^3/uL (0.0-0.7) Basophils # (Auto) 0.0 x10^3/uL (0.0-0.2) Sodium Level 144 mmol/L (136-145) Potassium Level 4.7 mmol/L (3.5-5.1) Chloride Level 102 mmol/L (98-107) Carbon Dioxide Level 33 mmol/L (21-32) Anion Gap 9 (6-14) Blood Urea Nitrogen 44 mg/dL (7-20) Creatinine 5.9 mg/dL (0.6-1.0) Estimated GFR (Cockcroft-Gault) 7.5 Glucose Level 375 mg/dL (70-99) Calcium Level 8.1 mg/dL (8.5-10.1) Phosphorus Level 6.8 mg/dL (2.6-4.7) Albumin 1.8 g/dL (3.4-5.0) Micro Micro 01/26/18 Blood Culture - Preliminary, Resulted NO GROWTH AFTER 4 DAYS 01/27 ANAEROBIC RES 1 Preliminary No anaerobes recovered in 24 hours. AEROBIC RES 1 Final Klebsiella pneumoniae MICS are expressed in micrograms per mL Antibiotic RSLT#1 RSLT#2 Amoxicillin/Clavulanic Acid S<=2 Ampicillin R>=32 Cefepime S<=0.12 Ceftriaxone S<=0.25 Cefuroxime S =4 Ciprofloxacin S =1 Ertapenem S<=0.12 Gentamicin S<=1 Imipenem S<=0.25 Levofloxacin S =1 Meropenem S<=0.25 Piperacillin/Tazobactam S<=4 Tetracycline S<=1 Tobramycin S<=1 Trimethoprim/Sulfa S<=20 Objective: Assessment: Right leg surgery site infection s/p excisional debridement; muscle flap & wound VAC placement on 01/27 C/S + . Klebsiella (R amp) S/P repeat I and D on 02/01 PAD s/p leg bypass on 01/06 ESRD Multiple antibiotic allergies Amiodarone therapy h/o VRE, MRSA, c. diff Plan: Plan of Care Cont cefepime and Flagyl -gent x 1 on 01/27 cont vanc dialysis dosing for now Random Vanc trough 18.0 Probiotics f/u cultures Pain management per primary Supportive care GRACIELA LÓPEZ MD Feb 02, 2018 10:34
--- NOTE | 2018-02-02 11:27 | PDOC ---
PROGRESS NOTES Chief Complaint Chief Complaint Right groin wound infection Sepsis from Right LE cellulitis ESRD on PD and HD History of Present Illness History of Present Illness Pt seen and examine while receiving dialysis, pt was cooperative with depressed affect. Pt reports Nausea. PO day 1 Dw/ RN Vitals Vitals Vital Signs Date Time Temp Pulse Resp B/P (MAP) Pulse Ox O2 Delivery O2 Flow Rate FiO2 02/02/18 10:55 Room Air 02/02/18 07:54 98 3.0 02/02/18 07:25 97.9 81 16 175/71 (105) 97.9 Physical Exam Physical Exam GENERAL: Propped up in bed, alert, NAD HEENT: Oral cavity clear NECK: Supple LUNGS: Clear. HEART: S1, S2 regular. ABDOMEN: Soft, NT EXTREMITIES: Left BKA. RLE edema with wound vac in place . NEUROLOGIC: Alert and responds appropriately Tunnelled RIJ (01/29) General: Alert, Oriented X3, Cooperative, No acute distress Heart: Regular rate, Normal S1, Normal S2 Lungs: Clear, Wheezing Abdomen: Normal bowel sounds, Soft, No tenderness, Other (PD cath clean dry and intact) Extremities: No clubbing, Other (RLE red along staple line with swollen red foot and right groin open wound, foul smelling. LLE BKA clean. RUE fistula with good bruit) Skin: No breakdown, Other (dehiscence of the proximal right common femoral incision and vein harvest site with lower extremity edema and mild cellulitis) Labs LABS Laboratory Tests Test 02/01/18 15:24 02/01/18 16:43 02/01/18 21:20 02/02/18 04:15 Glucose (Fingerstick) 85 mg/dL (70-99) 105 mg/dL (70-99) 192 mg/dL (70-99) White Blood Count 9.5 x10^3/uL (4.0-11.0) Red Blood Count 3.38 x10^6/uL (3.50-5.40) Hemoglobin 10.8 g/dL (12.0-15.5) Hematocrit 31.9 % (36.0-47.0) Mean Corpuscular Volume 94 fL (79-100) Mean Corpuscular Hemoglobin 32 pg (25-35) Mean Corpuscular Hemoglobin Concent 34 g/dL (31-37) Red Cell Distribution Width 17.5 % (11.5-14.5) Platelet Count 403 x10^3/uL (140-400) Neutrophils (%) (Auto) 95 % (31-73) Lymphocytes (%) (Auto) 3 % (24-48) Monocytes (%) (Auto) 2 % (0-9) Eosinophils (%) (Auto) 0 % (0-3) Basophils (%) (Auto) 0 % (0-3) Neutrophils # (Auto) 9.0 x10^3uL (1.8-7.7) Lymphocytes # (Auto) 0.3 x10^3/uL (1.0-4.8) Monocytes # (Auto) 0.2 x10^3/uL (0.0-1.1) Eosinophils # (Auto) 0.0 x10^3/uL (0.0-0.7) Basophils # (Auto) 0.0 x10^3/uL (0.0-0.2) Sodium Level 144 mmol/L (136-145) Potassium Level 4.7 mmol/L (3.5-5.1) Chloride Level 102 mmol/L (98-107) Carbon Dioxide Level 33 mmol/L (21-32) Anion Gap 9 (6-14) Blood Urea Nitrogen 44 mg/dL (7-20) Creatinine 5.9 mg/dL (0.6-1.0) Estimated GFR (Cockcroft-Gault) 7.5 Glucose Level 375 mg/dL (70-99) Calcium Level 8.1 mg/dL (8.5-10.1) Phosphorus Level 6.8 mg/dL (2.6-4.7) Albumin 1.8 g/dL (3.4-5.0) Test 02/02/18 08:39 Glucose (Fingerstick) 333 mg/dL (70-99) Review of Systems Review of Systems CO nausea CO fatigue Assessment and Plan Assessmemt and Plan Problems Medical Problems: (1) Chronic renal failure Status: Acute Right groin wound infection Sepsis from Right LE cellulitis ESRD on PD and HD Plan: Dialysis Wound care Labs Home meds. Compazin 10 mg Iv q8hrs PRN for nausea Comment Review of Relevant I have reviewed the following items bert (where applicable) has been applied. Labs Laboratory Tests Test 01/31/18 11:44 01/31/18 16:54 01/31/18 20:09 02/01/18 07:30 Glucose (Fingerstick) 129 mg/dL (70-99) 128 mg/dL (70-99) 143 mg/dL (70-99) 105 mg/dL (70-99) Test 02/01/18 11:15 02/01/18 11:18 02/01/18 15:24 02/01/18 16:43 White Blood Count 13.0 x10^3/uL (4.0-11.0) Red Blood Count 3.30 x10^6/uL (3.50-5.40) Hemoglobin 10.3 g/dL (12.0-15.5) Hematocrit 31.4 % (36.0-47.0) Mean Corpuscular Volume 95 fL (79-100) Mean Corpuscular Hemoglobin 31 pg (25-35) Mean Corpuscular Hemoglobin Concent 33 g/dL (31-37) Red Cell Distribution Width 17.6 % (11.5-14.5) Platelet Count 381 x10^3/uL (140-400) Neutrophils (%) (Auto) 82 % (31-73) Lymphocytes (%) (Auto) 8 % (24-48) Monocytes (%) (Auto) 7 % (0-9) Eosinophils (%) (Auto) 2 % (0-3) Basophils (%) (Auto) 1 % (0-3) Neutrophils # (Auto) 10.7 x10^3uL (1.8-7.7) Lymphocytes # (Auto) 1.1 x10^3/uL (1.0-4.8) Monocytes # (Auto) 0.9 x10^3/uL (0.0-1.1) Eosinophils # (Auto) 0.3 x10^3/uL (0.0-0.7) Basophils # (Auto) 0.1 x10^3/uL (0.0-0.2) Sodium Level 143 mmol/L (136-145) Potassium Level 4.0 mmol/L (3.5-5.1) Chloride Level 102 mmol/L (98-107) Carbon Dioxide Level 31 mmol/L (21-32) Anion Gap 10 (6-14) Blood Urea Nitrogen 35 mg/dL (7-20) Creatinine 5.2 mg/dL (0.6-1.0) Estimated GFR (Cockcroft-Gault) 8.7 Glucose Level 114 mg/dL (70-99) Calcium Level 8.1 mg/dL (8.5-10.1) Phosphorus Level 5.4 mg/dL (2.6-4.7) Albumin 1.8 g/dL (3.4-5.0) Glucose (Fingerstick) 94 mg/dL (70-99) 85 mg/dL (70-99) 105 mg/dL (70-99) Test 02/01/18 21:20 02/02/18 04:15 02/02/18 08:39 Glucose (Fingerstick) 192 mg/dL (70-99) 333 mg/dL (70-99) White Blood Count 9.5 x10^3/uL (4.0-11.0) Red Blood Count 3.38 x10^6/uL (3.50-5.40) Hemoglobin 10.8 g/dL (12.0-15.5) Hematocrit 31.9 % (36.0-47.0) Mean Corpuscular Volume 94 fL (79-100) Mean Corpuscular Hemoglobin 32 pg (25-35) Mean Corpuscular Hemoglobin Concent 34 g/dL (31-37) Red Cell Distribution Width 17.5 % (11.5-14.5) Platelet Count 403 x10^3/uL (140-400) Neutrophils (%) (Auto) 95 % (31-73) Lymphocytes (%) (Auto) 3 % (24-48) Monocytes (%) (Auto) 2 % (0-9) Eosinophils (%) (Auto) 0 % (0-3) Basophils (%) (Auto) 0 % (0-3) Neutrophils # (Auto) 9.0 x10^3uL (1.8-7.7) Lymphocytes # (Auto) 0.3 x10^3/uL (1.0-4.8) Monocytes # (Auto) 0.2 x10^3/uL (0.0-1.1) Eosinophils # (Auto) 0.0 x10^3/uL (0.0-0.7) Basophils # (Auto) 0.0 x10^3/uL (0.0-0.2) Sodium Level 144 mmol/L (136-145) Potassium Level 4.7 mmol/L (3.5-5.1) Chloride Level 102 mmol/L (98-107) Carbon Dioxide Level 33 mmol/L (21-32) Anion Gap 9 (6-14) Blood Urea Nitrogen 44 mg/dL (7-20) Creatinine 5.9 mg/dL (0.6-1.0) Estimated GFR (Cockcroft-Gault) 7.5 Glucose Level 375 mg/dL (70-99) Calcium Level 8.1 mg/dL (8.5-10.1) Phosphorus Level 6.8 mg/dL (2.6-4.7) Albumin 1.8 g/dL (3.4-5.0) Laboratory Tests Test 02/01/18 15:24 02/01/18 16:43 02/01/18 21:20 02/02/18 04:15 Glucose (Fingerstick) 85 mg/dL (70-99) 105 mg/dL (70-99) 192 mg/dL (70-99) White Blood Count 9.5 x10^3/uL (4.0-11.0) Red Blood Count 3.38 x10^6/uL (3.50-5.40) Hemoglobin 10.8 g/dL (12.0-15.5) Hematocrit 31.9 % (36.0-47.0) Mean Corpuscular Volume 94 fL (79-100) Mean Corpuscular Hemoglobin 32 pg (25-35) Mean Corpuscular Hemoglobin Concent 34 g/dL (31-37) Red Cell Distribution Width 17.5 % (11.5-14.5) Platelet Count 403 x10^3/uL (140-400) Neutrophils (%) (Auto) 95 % (31-73) Lymphocytes (%) (Auto) 3 % (24-48) Monocytes (%) (Auto) 2 % (0-9) Eosinophils (%) (Auto) 0 % (0-3) Basophils (%) (Auto) 0 % (0-3) Neutrophils # (Auto) 9.0 x10^3uL (1.8-7.7) Lymphocytes # (Auto) 0.3 x10^3/uL (1.0-4.8) Monocytes # (Auto) 0.2 x10^3/uL (0.0-1.1) Eosinophils # (Auto) 0.0 x10^3/uL (0.0-0.7) Basophils # (Auto) 0.0 x10^3/uL (0.0-0.2) Sodium Level 144 mmol/L (136-145) Potassium Level 4.7 mmol/L (3.5-5.1) Chloride Level 102 mmol/L (98-107) Carbon Dioxide Level 33 mmol/L (21-32) Anion Gap 9 (6-14) Blood Urea Nitrogen 44 mg/dL (7-20) Creatinine 5.9 mg/dL (0.6-1.0) Estimated GFR (Cockcroft-Gault) 7.5 Glucose Level 375 mg/dL (70-99) Calcium Level 8.1 mg/dL (8.5-10.1) Phosphorus Level 6.8 mg/dL (2.6-4.7) Albumin 1.8 g/dL (3.4-5.0) Test 02/02/18 08:39 Glucose (Fingerstick) 333 mg/dL (70-99) Microbiology 01/26/18 Blood Culture - Final, Complete NO GROWTH AFTER 5 DAYS 01/27/18 Anaerobic/Aerobic Culture - Final, Complete 01/27/18 Anaerobic Culture Result 1 (ROSAILND) - Final, Complete 01/27/18 Aerobic Culture - Final, Complete 01/27/18 Aerobic Culture Result 1 (ROSALIND) - Final, Complete 01/27/18 Antimicrobic Susceptibility - Final, Complete 01/27/18 Gram Stain - Final, Complete 01/27/18 Gram Stain Result 1 (ROSALIND) - Final, Complete 01/27/18 Gram Stain Result 2 (ROSALIND) - Final, Complete Medications Current Medications Hydromorphone HCl (Dilaudid) 2 mg 1X ONCE IV Last administered on 01/26/18at 22 :39; Start 01/26/18 at 22:00; Stop 01/26/18 at 22:01; Status DC Vancomycin HCl (Vanco Per Pharmacy) 1 each PRN DAILY PRN MC SEE COMMENTS Last administered on 01/31/18at 17:20; Start 01/26/18 at 22:45; Stop 02/01/18 at 11:41 ; Status DC Vancomycin HCl 1.75 gm/Sodium Chloride 500 ml @ 250 mls/hr 1X ONCE IV Last administered on 01/26/18at 23:53; Start 01/26/18 at 23:00; Stop 01/27/18 at 00:59 ; Status DC Ondansetron HCl (Zofran) 4 mg PRN Q8HRS PRN IV NAUSEA/VOMITING 1ST CHOICE; Start 01/26/18 at 23:15; Stop 01/27/18 at 23:14; Status DC Sodium Chloride 1,000 ml @ 75 mls/hr [id number] IV Last administered on at 00:39; Start 01/26/18 at 23:30; Stop 01/27/18 at 23:29; Status DC Pharmacy Consult (C.diff Med Screen By Rx) 1 each 1X ONCE MC ; Start 01/27/18 at 01:00; Stop 01/27/18 at 01:01; Status Cancel Influenza Virus Vaccine (Afluria Trivalent [id number] Syringe) 0.5 ml ONCE ONCE VAX IM Last administered on 01/27/18at 09:00; Start 01/27/18 at 09:00; Stop 01/27/18 at 09:01; Status DC Vancomycin HCl (Vancomycin Random Level) 1 each 1X ONCE MC Last administered on 01/28/18at 05:00; Start 01/28/18 at 05:00; Stop 01/28/18 at 05:01; Status DC Hydromorphone HCl (Dilaudid) 1 mg PRN Q3HRS PRN IV SEVERE PAIN Last administered on 02/02/18at 10:25; Start 01/27/18 at 03:30 Ondansetron HCl (Zofran) 4 mg PRN Q6HRS PRN IV NAUSEA/VOMITING; Start 01/27/18 at 10:45; Stop 01/27/18 at 18:00; Status DC Fentanyl Citrate (Fentanyl 2ml Vial) 25 mcg PRN Q5MIN PRN IV MILD PAIN; Start 01/27/18 at 10:45; Stop 01/27/18 at 18:00; Status DC Fentanyl Citrate (Fentanyl 2ml Vial) 50 mcg PRN Q5MIN PRN IV MODERATE TO SEVERE PAIN; Start 01/27/18 at 10:45; Stop 01/27/18 at 18:00; Status DC Morphine Sulfate (Morphine Sulfate) 1 mg PRN Q10MIN PRN IV SEVERE PAIN Last administered on 01/27/18 16:28; Start 01/27/18 at 10:45; Stop 01/27/18 at 18:00 ; Status DC Ringer's Solution 1,000 ml @ 30 mls/hr Q24H IV Last administered on 01/27/18at 10:35; Start 01/27/18 at 10:35; Stop 01/27/18 at 19:36; Status DC Lidocaine HCl (Xylocaine-Mpf 1% 2ml Vial) 2 ml 1X PRN PRN ID IV START; Start 01/27/18 at 10:45; Stop 01/27/18 at 18:00; Status DC Hydromorphone HCl (Dilaudid) 0.5 mg PRN Q10MIN PRN IV SEV PAIN, Second choice Last administered on 01/27/18at 15:59; Start 01/27/18 at 10:45; Stop 01/27/18 at 18:00; Status DC Prochlorperazine Edisylate (Compazine) 5 mg PACU PRN PRN IV NAUSEA, MRX1; Start 01/27/18 at 10:45; Stop 01/27/18 at 18:00; Status DC Amiodarone HCl (Cordarone) 200 mg DAILY PO Last administered on 01/31/18 09:31 ; Start 01/27/18 at 12:30 Aspirin (Anthony Aspirin) 325 mg DAILY PO Last administered on 01/28/18 09:13; Start 01/27/18 at 12:30; Stop 01/28/18 at 14:26; Status DC Carbamazepine (TEGretol) 200 mg BID PO Last administered on 02/01/18 21:32; Start 01/27/18 at 12:30 Carvedilol (Coreg) 12.5 mg BIDWMEALS PO Last administered on 02/01/18 17:20; Start 01/27/18 at 12:30 Vitamin B Complex/ Vitamin C (Melly-Shabbir) 1 tab DAILY PO Last administered on 09:30; Start 01/27/18 at 12:30 Furosemide (Lasix) 80 mg [id number] PO Last administered on 01/31/18 15:21; Start 01/27/18 at 12:30 Insulin Glargine (Lantus) 22 units QHS SQ Last administered on 02/01/18 21:37 ; Start 01/27/18 at 21:00 Morphine Sulfate (Ms Contin) 15 mg BID PO Last administered on 02/01/18 21:32 ; Start 01/27/18 at 12:30 Nitroglycerin (Nitrostat) 0.4 mg PRN Q5MIN PRN SL CHEST PAIN; Start 01/27/18 at 12:00 Nystatin (Nystop) 1 susanna PRN BID PRN TP SKIN BREAKDOWN; Start 01/27/18 at 12:00 Tramadol HCl (Ultram) 50 mg PRN Q4HRS PRN PO HEADACHE; Start 01/27/18 at 12:00 Non-Formulary Medication (Albuterol Sulfate (Proventil Hfa Inhaler)) 2 puff BID PRN IH FOR ASTHMA; Start 01/27/18 at 12:00; Status UNV Atorvastatin Calcium (Lipitor) 80 mg QHS PO Last administered on 02/01/18 21: 32; Start 01/27/18 at 21:00 Calcitriol (Rocaltrol) 0.25 mcg DAILY PO Last administered on 01/31/18 09:29; Start 01/27/18 at 12:30 Diltiazem HCl (Cardizem 24hr Cd) 120 mg DAILY PO Last administered on 09:30; Start 01/27/18 at 12:30 Erythromycin (E-Mycin) 250 mg BID PO Last administered on 02/01/18 21:32; Start 01/27/18 at 21:00 Fenofibrate (Lofibra) 134 mg QHS PO Last administered on 02/01/18 21:32; Start 01/27/18 at 21:00 Non-Formulary Medication (Fluconazole (Diflucan)) 100 mg PRN PO ; Start at 12:00; Status UNV Lidocaine (Lidoderm) 1 patch PRN DAILY PRN TD PAIN; Start 01/27/18 at 09:00 Niacin (Slo-Niacin) 500 mg QHS PO Last administered on 02/01/18 21:32; Start 01/27/18 at 21:00 Ondansetron HCl (Zofran Odt) 4 mg PRN Q6HRS PRN PO NAUSEA/VOMITING; Start 01/27 at 12:15 Miscellaneous (Lidoderm Patch Removal) 1 ea QHS MC Last administered on at 21:00; Start 01/27/18 at 21:00 Albuterol Sulfate (Ventolin Neb Soln) 2.5 mg PRN BID PRN NEB SHORTNESS OF BREATH Last administered on 01/27/18at 21:59; Start 01/27/18 at 12:30 Lidocaine HCl (Lidocaine 1% 50ml Vial) 50 ml 1X ONCE INJ Last administered on 01/27/18at 14:06; Start 01/27/18 at 12:45; Stop 01/27/18 at 12:46; Status DC Hydromorphone HCl (Dilaudid) 2 mg STK-MED ONCE .ROUTE ; Start 01/27/18 at 12:36 ; Stop 01/27/18 at 12:38; Status DC Propofol 20 ml @ As Directed STK-MED ONCE IV ; Start 01/27/18 at 12:38; Stop at 12:39; Status DC Bacitracin [id number] unit/Sodium Chloride 3,000 ml @ 0 mls/hr 1X ONCE IR ; Start 01/27/18 at 13:15; Stop 01/27/18 at 13:16; Status Cancel Dexamethasone Sodium Phosphate (Decadron) 20 mg STK-MED ONCE .ROUTE ; Start 01/27/18 at 13:11; Stop 01/27/18 at 13:12; Status DC Ondansetron HCl (Zofran) 4 mg STK-MED ONCE .ROUTE ; Start 01/27/18 at 13:11; Stop 01/27/18 at 13:12; Status DC Sevoflurane (Ultane) 30 ml STK-MED ONCE IH ; Start 01/27/18 at 13:11; Stop 01/27 at 13:12; Status DC Bacitracin (Bacitracin) 50,000 unit STK-MED ONCE IRR Last administered on at 13:58; Start 01/27/18 at 12:14; Stop 01/27/18 at 13:16; Status DC Clopidogrel Bisulfate (Plavix) 75 mg DAILYWBKFT PO Last administered on at 09:13; Start 01/28/18 at 08:00; Stop 01/28/18 at 14:28; Status DC Hydromorphone HCl (Dilaudid) 2 mg STK-MED ONCE .ROUTE ; Start 01/27/18 at 15:38 ; Stop 01/27/18 at 15:40; Status DC Gentamicin Sulfate 235 mg/ Dextrose 105.875 ml @ 105.875 mls/hr 1X ONCE IV Last administered on 01/27/18at 19:56; Start 01/27/18 at 16:00; Stop 01/27/18 at 16:59; Status DC Lactobacillus Rhamnosus (Culturelle) 1 cap BID PO Last administered on at 21:32; Start 01/27/18 at 21:00 Cefepime HCl 1 gm/ Dextrose 50 ml @ 100 mls/hr DAILY IV ; Start 01/29/18 at 09: 00; Status UNV Metronidazole 100 ml @ 100 mls/hr Q12HR IV Last administered on 02/01/18at 21: 35; Start 01/28/18 at 10:00 Cefepime HCl (Maxipime) 1 gm Q24H IVP Last administered on 02/01/18at 12:18; Start 01/28/18 at 10:00 Lidocaine HCl (Xylocaine-Mpf 2% Vial) 2 ml STK-MED ONCE .ROUTE ; Start 01/28/18 at 11:41; Stop 01/28/18 at 11:42; Status DC Sodium Chloride 1,000 ml @ 1,000 mls/hr Q1H PRN IV hypotension; Start 01/28/18 at 12:09; Stop 01/28/18 at 18:08; Status DC Info (PHARMACY MONITORING -- do not chart) 1 each PRN DAILY PRN MC SEE COMMENTS ; Start 01/28/18 at 12:15; Status UNV Info (PHARMACY MONITORING -- do not chart) 1 each PRN DAILY PRN MC SEE COMMENTS ; Start 01/28/18 at 12:15; Stop 01/31/18 at 09:10; Status DC Lidocaine HCl (Xylocaine-Mpf 2% Vial) 2 ml 1X ONCE INJ ; Start 01/28/18 at 12: 15; Stop 01/28/18 at 12:21; Status DC Ticagrelor (Brilinta) 90 mg BID PO Last administered on 02/01/18at 21:33; Start 01/28/18 at 21:00 Diphenhydramine HCl (Benadryl) 25 mg PRN Q6HRS PRN PO ITCHING; Start 01/28/18 at 14:15 Aspirin (Ecotrin) 81 mg DAILYWBKFT PO Last administered on 01/31/18at 09:29; Start 01/29/18 at 08:00 Insulin Human Lispro (HumaLOG) 0-5 UNITS TIDWMEALS SQ Last administered on 01/29at 12:25; Start 01/28/18 at 17:00 Dextrose (Dextrose 50%-Water Syringe) 12.5 gm PRN Q15MIN PRN IV SEE COMMENTS; Start 01/28/18 at 14:45 Hydralazine HCl (Apresoline) 10 mg PRN TID PRN PO hypertension; Start 01/28/18 at 14:45 Oxycodone/ Acetaminophen (Percocet 10/325) 1 tab PRN Q4HRS PRN PO pain SEVERE Last administered on 01/31/18at 16:59; Start 01/29/18 at 07:45 Promethazine HCl (Phenergan Supp) 12.5 mg 1X ONCE AR ; Start 01/29/18 at 12:15 ; Stop 01/29/18 at 12:36; Status DC Promethazine HCl (Phenergan Im) 12.5 mg 1X ONCE IM ; Start 01/29/18 at 12:45; Stop 01/29/18 at 12:46; Status DC Lidocaine/ Epinephrine (LIDOCAINE 1%-EPI 1:100,000 Multi-Dose) 20 ml STK-MED ONCE .ROUTE ; Start 01/29/18 at 12:45; Stop 01/29/18 at 12:47; Status DC Heparin Sodium (Porcine) (Hep Lock Adult) 500 unit STK-MED ONCE IV ; Start 01/29 at 12:45; Stop 01/29/18 at 12:47; Status DC Morphine Sulfate (Morphine Sulfate) 10 mg STK-MED ONCE .ROUTE ; Start 01/29/18 at 13:23; Stop 01/29/18 at 13:25; Status DC Midazolam HCl (Versed) 2 mg STK-MED ONCE .ROUTE ; Start 01/29/18 at 13:23; Stop 01/29/18 at 13:25; Status DC Morphine Sulfate (Morphine Sulfate) 1 mg PRN Q10MIN PRN IV SEVERE PAIN Last administered on 02/01/18at 15:46; Start 02/01/18 at 07:00; Stop 02/02/18 at 06:59 ; Status DC Ringer's Solution 1,000 ml @ 30 mls/hr Q24H IV ; Start 02/01/18 at 07:00; Stop 02/01/18 at 18:59; Status DC Lidocaine HCl (Xylocaine-Mpf 1% 2ml Vial) 2 ml PRN 1X PRN ID PRIOR TO IV START ; Start 02/01/18 at 07:00; Stop 02/02/18 at 06:59; Status DC Hydromorphone HCl (Dilaudid) 0.5 mg PRN Q10MIN PRN IV SEV PAIN, Second choice Last administered on 02/01/18at 16:08; Start 02/01/18 at 07:00; Stop 02/02/18 at 06:59; Status DC Prochlorperazine Edisylate (Compazine) 5 mg PACU PRN PRN IV NAUSEA, MRX1; Start 02/01/18 at 07:00; Stop 02/02/18 at 06:59; Status DC Lidocaine/ Epinephrine (LIDOCAINE 1%-EPI 1:100,000 Multi-Dose) 8 ml 1X ONCE IJ Last administered on 01/29/18at 14:01; Start 01/29/18 at 14:00; Stop 01/29/18 at 14:17; Status DC Heparin Sodium (Porcine) (Hep Lock Adult) 500 unit 1X ONCE IV Last administered on 01/29/18at 14:04; Start 01/29/18 at 14:00; Stop 01/29/18 at 14:17 ; Status DC Morphine Sulfate (Morphine Sulfate) 5 mg 1X ONCE IV Last administered on at 14:01; Start 01/29/18 at 14:00; Stop 01/29/18 at 14:17; Status DC Ondansetron HCl (Zofran) 4 mg PRN Q6HRS PRN IV NAUSEA/VOMITING Last administered on 02/02/18at 09:51; Start 01/29/18 at 14:45 Vancomycin HCl 500 mg/Sodium Chloride 100 ml @ 100 mls/hr 1X ONCE IV Last administered on 01/29/18at 21:04; Start 01/29/18 at 18:00; Stop 01/29/18 at 18:59 ; Status DC Sodium Chloride 1,000 ml @ 1,000 mls/hr Q1H PRN IV hypotension; Start 01/30/18 at 13:09; Stop 01/30/18 at 19:08; Status DC Sodium Chloride (Normal Saline Flush) 10 ml 1X PRN PRN IV AP catheter pack; Start 01/30/18 at 13:15; Stop 01/31/18 at 13:14; Status DC Sodium Chloride (Normal Saline Flush) 10 ml 1X PRN PRN IV MEDICAL SECRETARY RECEPTIONIST catheter pack; Start 01/30/18 at 13:15; Stop 01/31/18 at 13:14; Status DC Sodium Chloride 1,000 ml @ 400 mls/hr Q2H30M PRN IV PATENCY; Start 01/30/18 at 13:09; Stop 01/31/18 at 01:08; Status DC Info (PHARMACY MONITORING -- do not chart) 1 each PRN DAILY PRN MC SEE COMMENTS ; Start 01/30/18 at 13:15; Stop 01/30/18 at 13:17; Status DC Info (PHARMACY MONITORING -- do not chart) 1 each PRN DAILY PRN MC SEE COMMENTS ; Start 01/30/18 at 13:15 Lidocaine HCl (Lidocaine 1% 50ml Vial) 50 ml 1X ONCE INJ ; Start 01/30/18 at 15 :45; Stop 01/30/18 at 15:46; Status DC Vancomycin HCl 500 mg/Sodium Chloride 100 ml @ 100 mls/hr ONCE ONCE IV Last administered on 01/30/18at 20:49; Start 01/30/18 at 18:00; Stop 01/30/18 at 18:59 ; Status DC Cefazolin Sodium 1 gm/Sodium Chloride 500 ml @ 500 mls/hr 1X ONCE IRR ; Start 02/01/18 at 06:00; Stop 02/01/18 at 06:59; Status DC Lidocaine HCl (Xylocaine-Mpf 2% Vial) 2 ml STK-MED ONCE .ROUTE ; Start 01/28/18 at 12:00; Stop 02/01/18 at 08:30; Status DC Darbepoetin Mauricio (Aranesp) 60 mcg [id number] SQ Last administered on 02/01/18at 21 :38; Start 02/01/18 at 21:00 Cellulose (Surgicel Fibrillar 1x2) 1 each STK-MED ONCE .ROUTE ; Start 02/01/18 at 12:05; Stop 02/01/18 at 13:06; Status DC Lidocaine HCl (Xylocaine 1% Pf 30ml Vial) 30 ml 1X ONCE INJ ; Start 02/01/18 at 13:15; Stop 02/01/18 at 13:18; Status DC Sodium Chloride 1,000 ml @ 75 mls/hr [id number] IV Last administered on at 00:15; Start 02/01/18 at 13:45 Morphine Sulfate (Morphine Sulfate) 10 mg STK-MED ONCE .ROUTE ; Start 02/01/18 at 14:24; Stop 02/01/18 at 14:25; Status DC Midazolam HCl (Versed) 2 mg STK-MED ONCE .ROUTE ; Start 02/01/18 at 14:24; Stop 02/01/18 at 14:25; Status DC Midazolam HCl (Versed) 2 mg STK-MED ONCE .ROUTE ; Start 02/01/18 at 14:25; Stop 02/01/18 at 14:26; Status DC Propofol 20 ml @ As Directed STK-MED ONCE IV ; Start 02/01/18 at 14:25; Stop at 14:26; Status DC Dexamethasone Sodium Phosphate (Decadron) 20 mg STK-MED ONCE .ROUTE ; Start 02/01/18 at 14:25; Stop 02/01/18 at 14:26; Status DC Ondansetron HCl (Zofran) 4 mg STK-MED ONCE .ROUTE ; Start 02/01/18 at 14:25; Stop 02/01/18 at 14:26; Status DC Bacitracin (Bacitracin) 50,000 unit STK-MED ONCE IRR Last administered on at 14:55; Start 02/01/18 at 13:32; Stop 02/01/18 at 14:32; Status DC Vancomycin HCl 500 mg/Sodium Chloride 100 ml @ 100 mls/hr QMWF IV ; Start 02/11 at 16:00 Sodium Chloride 1,000 ml @ 1,000 mls/hr Q1H PRN IV hypotension; Start 02/02/18 at 09:39; Stop 02/02/18 at 15:38 Albumin Human 200 ml @ 200 mls/hr 1X PRN PRN IV Hypotension; Start 02/02/18 at 09:45; Stop 02/02/18 at 15:44 Sodium Chloride 1,000 ml @ 400 mls/hr Q2H30M PRN IV PATENCY; Start 02/02/18 at 09:39; Stop 02/02/18 at 21:38 Info (PHARMACY MONITORING -- do not chart) 1 each PRN DAILY PRN MC SEE COMMENTS ; Start 02/02/18 at 09:45 Info (PHARMACY MONITORING -- do not chart) 1 each PRN DAILY PRN MC SEE COMMENTS ; Start 02/02/18 at 09:45; Status UNV Active Scripts Active Percocet 10-325 Mg Tablet (Oxycodone/Acetaminophen) 1 Each Tablet 1 Tab PO Q4HRS Brilinta (Ticagrelor) 90 Mg Tablet 90 Mg PO BID 30 Days Morphine Sulfate Er (Morphine Sulfate) 15 Mg Tablet.er 15 Mg PO BID Reported Brilinta (Ticagrelor) 90 Mg Tablet 90 Mg PO BID Lidocaine 1 Each Adh..patch 1 Each TP PRN DAILY PRN Calcitriol 0.25 Mcg Capsule 1 Cap PO DAILY Tegretol (Carbamazepine) 200 Mg Tablet 1 Tab PO BID Tramadol Hcl 50 Mg Tablet 50 Mg PO Q4HRS PRN Lantus Solostar (Insulin Glargine,Hum.rec.anlog) 100 Unit/1 Ml Insuln.pen 22 Unit SQ QHS Diflucan (Fluconazole) 100 Mg Tablet 100 Mg PO PRN Carvedilol 3.125 Mg Tablet 12.5 Mg PO BID Erythromycin (Erythromycin Base) 250 Mg Capsule.dr 250 Mg PO BID Cardizem Cd (Diltiazem Hcl) 180 Mg Cap.er.24h 120 Mg PO DAILY Amiodarone Hcl 200 Mg Tablet 1 Tab PO DAILY Nystatin 15 Gm Powder 1 Susanna TP PRN BID PRN Proventil Hfa Inhaler (Albuterol Sulfate) 6.7 Gm Hfa.aer.ad 2 Puff IH BID PRN Zofran (Ondansetron Hcl) 4 Mg Tablet 4 Mg PO Q6-8HRS PRN Nephro-Shabbir Tablet (Folic Acid/Vitamin B Comp W-C) 0.8 Mg Tablet 1 Tab PO DAILY Tricor (Fenofibrate Nanocrystallized) 145 Mg Tablet 1 Tab PO HS Lipitor (Atorvastatin Calcium) 80 Mg Tablet 80 Mg PO HS Niacin 500 Mg Tablet 500 Mg PO HS Novolog (Insulin Aspart) 100 Unit/1 Ml Cartridge 0 SQ TIDAC sliding scale Aspirin 325 Mg Tablet 325 Mg PO DAILY Furosemide 80 Mg Tablet 80 Mg PO BID Docusate Sodium 100 Mg Capsule 1 Cap PO PRN PRN Nitrostat (Nitroglycerin) 0.4 Mg Tab.subl 0.4 Mg SL PRN Q5MIN PRN Take as needed for chest pain Vitals/I & O Vital Sign - Last 24 Hours 02/01/18 02/01/18 02/01/18 02/01/18 13:34 15:17 15:17 15:32 Temp 97.7 97.6 97.7 97.6 Pulse 74 70 70 Resp 17 20 20 B/P (MAP) 135/64 144/61 159/74 Pulse Ox 99 100 100 O2 Delivery Nasal Cannula Simple Mask Mask Simple Mask O2 Flow Rate 10 10 10 02/01/18 02/01/18 02/01/18 02/01/18 15:34 15:46 15:46 15:47 Pulse 69 Resp 20 20 20 20 B/P (MAP) 138/67 Pulse Ox 99 100 95 O2 Delivery Simple Mask Room Air Simple Mask O2 Flow Rate 10.0 10.0 02/01/18 02/01/18 02/01/18 02/01/18 15:55 16:02 16:04 16:08 Pulse 68 Resp 20 20 20 B/P (MAP) 135/63 Pulse Ox 97 94 99 O2 Delivery Room Air Room Air Nasal Cannula Room Air O2 Flow Rate 2.0 02/01/18 02/01/18 02/01/18 02/01/18 16:25 16:28 16:30 16:38 Temp 96.4 96.4 Pulse 68 68 Resp 16 B/P (MAP) 140/59 (86) 137/53 (81) Pulse Ox 100 O2 Delivery Nasal Cannula Nasal Cannula Nasal Cannula O2 Flow Rate 2.0 2.0 2.0 02/01/18 02/01/18 02/01/18 02/01/18 16:45 16:55 17:00 17:15 Pulse 68 66 82 B/P (MAP) 135/48 (77) 132/52 (78) 103/48 (66) O2 Flow Rate 2.0 10/8/18 02/01/18 02/01/18 02/01/18 17:20 17:45 18:15 19:14 Pulse 68 77 74 75 B/P (MAP) 140/59 147/59 (88) 112/50 (70) 140/58 (85) 02/01/18 02/01/18 02/01/18 02/01/18 20:00 21:32 21:33 23:00 Temp 98.7 98.7 Pulse 80 Resp 18 B/P (MAP) 119/59 (79) Pulse Ox 100 100 92 O2 Delivery Nasal Cannula Room Air Room Air Room Air O2 Flow Rate 2.0 2.0 2.0 02/02/18 02/02/18 02/02/18 02/02/18 03:00 07:25 07:54 10:25 Temp 98.2 97.9 98.2 97.9 Pulse 84 81 Resp 20 16 B/P (MAP) 160/69 (99) 175/71 (105) Pulse Ox 95 100 98 O2 Delivery Room Air Room Air Nasal Cannula Room Air O2 Flow Rate 3.0 02/02/18 10:55 O2 Delivery Room Air Intake and Output 02/01/18 02/01/18 02/02/18 15:00 23:00 07:00 Intake Total 410 ml 600 ml Output Total 10 ml 0 ml Balance 400 ml 600 ml PAPITO REZA III DO Feb 02, 2018 11:27
--- NOTE | 2018-02-02 12:40 | PDOC ---
Provider Note Provider Note Vas F/U VAC changed yesterday and will be done again tomorrow at bedside BRITNEY SANDOVAL MD Feb 02, 2018 12:40
--- NOTE | 2018-02-02 13:55 | PDOC ---
Renal-Progress Notes Subjective Notes Notes STABLE History of Present Illness Hx of present illness BETTER Vitals Vitals Vital Signs Date Time Temp Pulse Resp B/P (MAP) Pulse Ox O2 Delivery O2 Flow Rate FiO2 02/02/18 10:55 Room Air 02/02/18 07:54 98 3.0 02/02/18 07:25 97.9 81 16 175/71 (105) 97.9 Weight Weight [ ] I.O. Intake and Output Intake and Output 02/02/18 07:00 Intake Total 1010 ml Output Total 10 ml Balance 1000 ml Intake Oral 960 ml IV Total 50 ml Output Urine Total 0 ml Estimated Blood Loss 10 ml # Voids 1 Labs Labs Laboratory Tests Test 02/01/18 15:24 02/01/18 16:43 02/01/18 21:20 02/02/18 04:15 Glucose (Fingerstick) 85 mg/dL (70-99) 105 mg/dL (70-99) 192 mg/dL (70-99) White Blood Count 9.5 x10^3/uL (4.0-11.0) Red Blood Count 3.38 x10^6/uL (3.50-5.40) Hemoglobin 10.8 g/dL (12.0-15.5) Hematocrit 31.9 % (36.0-47.0) Mean Corpuscular Volume 94 fL (79-100) Mean Corpuscular Hemoglobin 32 pg (25-35) Mean Corpuscular Hemoglobin Concent 34 g/dL (31-37) Red Cell Distribution Width 17.5 % (11.5-14.5) Platelet Count 403 x10^3/uL (140-400) Neutrophils (%) (Auto) 95 % (31-73) Lymphocytes (%) (Auto) 3 % (24-48) Monocytes (%) (Auto) 2 % (0-9) Eosinophils (%) (Auto) 0 % (0-3) Basophils (%) (Auto) 0 % (0-3) Neutrophils # (Auto) 9.0 x10^3uL (1.8-7.7) Lymphocytes # (Auto) 0.3 x10^3/uL (1.0-4.8) Monocytes # (Auto) 0.2 x10^3/uL (0.0-1.1) Eosinophils # (Auto) 0.0 x10^3/uL (0.0-0.7) Basophils # (Auto) 0.0 x10^3/uL (0.0-0.2) Sodium Level 144 mmol/L (136-145) Potassium Level 4.7 mmol/L (3.5-5.1) Chloride Level 102 mmol/L (98-107) Carbon Dioxide Level 33 mmol/L (21-32) Anion Gap 9 (6-14) Blood Urea Nitrogen 44 mg/dL (7-20) Creatinine 5.9 mg/dL (0.6-1.0) Estimated GFR (Cockcroft-Gault) 7.5 Glucose Level 375 mg/dL (70-99) Calcium Level 8.1 mg/dL (8.5-10.1) Phosphorus Level 6.8 mg/dL (2.6-4.7) Albumin 1.8 g/dL (3.4-5.0) Test 02/02/18 08:39 Glucose (Fingerstick) 333 mg/dL (70-99) Micro Micro Microbiology 01/26/18 Blood Culture - Final, Complete NO GROWTH AFTER 5 DAYS 01/27/18 Anaerobic/Aerobic Culture - Final, Complete 01/27/18 Anaerobic Culture Result 1 (ROSALIND) - Final, Complete 01/27/18 Aerobic Culture - Final, Complete 01/27/18 Aerobic Culture Result 1 (ROSALIND) - Final, Complete 01/27/18 Antimicrobic Susceptibility - Final, Complete 01/27/18 Gram Stain - Final, Complete 01/27/18 Gram Stain Result 1 (ROSALIND) - Final, Complete 01/27/18 Gram Stain Result 2 (ROSALIND) - Final, Complete Review of Systems Constitutional: yes: weakness, alert, oriented Ears/Nose/Throat: Yes: no symptom reported Eyes: Yes: no symptom reported Pulmonary: Yes no symptom reported Cardiovascular: Yes no symptom reported Gastrointestional: Yes: no symptom reported Genitourinary: Yes: no symptom reported Musculoskeletal: Yes: leg pain Skin: Yes color change Psychiatric/Neurological: Yes: no symptom reported Physical Exam General Appearance: no apparent distress Respiratory: bilateral CTA Heart: S1S2 Abdomen: soft, bowel sounds present Genitourinary: bladder flat Extremities: pulses present Assessment Assessment IMP ESRD-ON PD BUT HAS FUNCTIONING RIGHT ARM AVF ANEMIA DM II HTN PAD R LE CELLULITIS PLAN HD TODAY UF TO DW BACK TO PD WHEN HOME ANTIBIOTICS WILL FOLLOW CHARLY ZAVALA MD Feb 02, 2018 13:55
[2018-02-02] MEDS ORDERED: VANCOMYCIN PER PHARMACY MC PRN (14:00)
--- NOTE | 2018-02-02 14:42 | RAD ---
Portable chest, 02/02/2018: HISTORY: Check for TB Comparison is made to a study from 01/02/2018. A left jugular central venous catheter has been inserted extending to the level the atriocaval junction.. Vascular stents are projected over the right innominate vein region and right subclavian/axillary vein regions. Sternal wires are evident. The heart is at the upper limits of normal in size. There is calcific plaquing of the aorta and coronary arteries. The pulmonary vascularity is normal. Calcifications projected over the apical regions appear to be arterial. No pulmonary consolidation is seen. There is unchanged blunting of the left lateral costophrenic angle. There is no evidence of pneumothorax. IMPRESSION: 1. Interval insertion of a left jugular central venous catheter in satisfactory position. 2. Unchanged blunting of the left lateral costophrenic angle compatible with a small amount of pleural fluid versus scarring. Electronically signed by: Ronald Levy MD (02/02/2018 2:38 PM) [facility]
[2018-02-02 15:00] VITALS: BP 143/53
[2018-02-02] MEDS ORDERED: VANCOMYCIN 500 MG in IV NORMAL SALINE 100ML 100 ML IV SCH (16:00)
[2018-02-02 19:00] VITALS: BP 142/63
[2018-02-02] MEDS: FENOFIBRATE,MICRONIZED 134 MG CAPSULE PO SCH (20:59)
[2018-02-02] MEDS: PATCH REMOVAL. MC SCH (21:00)
[2018-02-02] MEDS: ATORVASTATIN CALCIUM 40 MG TABLET. PO SCH (21:00)
[2018-02-02] MEDS: NIACIN ER 500 MG TABLET.ER PO SCH (21:00)
[2018-02-02] MEDS: INSULIN GLARGINE 300 UNITS/3 ML INSULN.PEN. SQ SCH (21:47)
[2018-02-02 23:00] VITALS: BP 132/56
[2018-02-02] MEDS: PROCHLORPERAZINE 10 MG/2 ML VIAL. IV PRN (23:23)
[2018-02-03] MEDS: HYDROmorphone 2 MG/ML VIAL IV PRN ×5 (01:29→20:41)
[2018-02-03 03:00] VITALS: BP 139/63
[2018-02-03 05:34] LABS: BASO % 0 % (0-3); EOS % 0 % (0-3); HEMOGLOBIN 7.9 g/dL (12.0-15.5); LYMPH # 1.4 x10^3/uL (1.0-4.8); LYMPH % 9 % (24-48); MEAN CORPUSCULAR HEMOGLOBIN 31 pg (25-35); MEAN CORPUSCULAR HGB CONC 33 g/dL (31-37); MEAN CORPUSCULAR VOLUME 94 fL (79-100); MONO # 0.9 x10^3/uL (0.0-1.1); MONO % 6 % (0-9); NEUT # 12.7 x10^3uL (1.8-7.7); NEUT % 84 % (31-73); PLATELET COUNT 368 x10^3/uL (140-400); RED BLOOD COUNT 2.55 x10^6/uL (3.50-5.40); RED CELL DISTRIBUTION WIDTH 17.5 % (11.5-14.5); WHITE BLOOD COUNT 15.1 x10^3/uL (4.0-11.0)
[2018-02-03 05:47] LABS: ALBUMIN 1.5 g/dL (3.4-5.0); CALCIUM 8.1 mg/dL (8.5-10.1); CREATININE 3.9 mg/dL (0.6-1.0); GFR 12.1; PHOSPHORUS 4.5 mg/dL (2.6-4.7); POTASSIUM 4.3 mmol/L (3.5-5.1)
[2018-02-03 07:00] VITALS: BP 154/63
[2018-02-03] MEDS: INSULIN LISPRO 300 UNITS/3 ML INSULN.PEN. SQ SCH ×3 (08:00→18:08)
--- NOTE | 2018-02-03 09:33 | PDOC2 ---
GI CONSULT Reason For Consult: Vomiting coffee ground emesis HPI: HPI: 52 y/o female w/ h/o RLE bypass - had debridement on 01/27 and 02/01. Reports of "coffee-ground emesis" overnight. The patient says this also occurred the night before. H/o gastroparesis - she vomits daily but thinks the color is different now. She ate a bagel and drank some juice this morning. Last EGD by Dr. Fagan in 01/2017 showed non-erosive gastritis and retained food c/w gastroparesis. She's not sure if she's had previous colonoscopy. Had GES years ago and did well w/ Reglan for a long time but stopped this when started dialysis. Currently on e-mycin BID - takes unrelated to meals. H/o reflux that's untreated. Reports h/o gastric ulcer - can see path from gastric biopsy in 2014 that was negative for H. pylori. H/o C Diff. Typically bowel pattern is 2 stools weekly - last stool prior to admission. On ASA and Brilinta. No NSAIDs though on Percocet and morphine for chronic pain. Denies hematochezia and melena. Not sure if she's lost weight. Chronic anemia - seems Hgb mostly 9-10 range though can dip into 7s. Transfused 2 units this admission (on 01/27). Hgb 7.9 this morning. BUN 39 w/ Cr 3.9 (from 44 and 5.9). PMH: PMH: DM, ESRD, CAD, HTN, MO, HLD, anemia, hyperparathyroidism, PAD, osteomyelitis, GERD, gastroparesis, C Diff RUE AV fistula, PD cath placement, RLE bypass/debridement, LBKA/revision, laminectomy, bladder suspension, partial hysterectomy FH: Family History: No pertinent hx Social History: ALCOHOL: none Drugs: None ROS: GEN: Denies fevers, chills, sweats HEENT: Denies blurred vision, sore throat CV: Denies chest pain RESP: Denies shortness of air, cough GI: Per HPI : Denies hematuria, dysuria ENDO: Denies weight changes NEURO: Denies confusion, dizziness MSK: +chronic pain SKIN: Denies jaundice, pruritus Vitals: Vitals: Vital Signs Date Time Temp Pulse Resp B/P (MAP) Pulse Ox O2 Delivery O2 Flow Rate FiO2 10/10/18 08:53 Nasal Cannula 2.0 02/03/18 07:00 97.7 74 18 154/63 (93) 100 97.7 Labs: Labs: Laboratory Tests Test 02/02/18 16:57 02/02/18 20:44 02/03/18 04:25 02/03/18 07:37 Glucose (Fingerstick) 224 mg/dL (70-99) 187 mg/dL (70-99) 140 mg/dL (70-99) White Blood Count 15.1 x10^3/uL (4.0-11.0) Red Blood Count 2.55 x10^6/uL (3.50-5.40) Hemoglobin 7.9 g/dL (12.0-15.5) Hematocrit 24.0 % (36.0-47.0) Mean Corpuscular Volume 94 fL (79-100) Mean Corpuscular Hemoglobin 31 pg (25-35) Mean Corpuscular Hemoglobin Concent 33 g/dL (31-37) Red Cell Distribution Width 17.5 % (11.5-14.5) Platelet Count 368 x10^3/uL (140-400) Neutrophils (%) (Auto) 84 % (31-73) Lymphocytes (%) (Auto) 9 % (24-48) Monocytes (%) (Auto) 6 % (0-9) Eosinophils (%) (Auto) 0 % (0-3) Basophils (%) (Auto) 0 % (0-3) Neutrophils # (Auto) 12.7 x10^3uL (1.8-7.7) Lymphocytes # (Auto) 1.4 x10^3/uL (1.0-4.8) Monocytes # (Auto) 0.9 x10^3/uL (0.0-1.1) Eosinophils # (Auto) 0.0 x10^3/uL (0.0-0.7) Basophils # (Auto) 0.0 x10^3/uL (0.0-0.2) Sodium Level 146 mmol/L (136-145) Potassium Level 4.3 mmol/L (3.5-5.1) Chloride Level 103 mmol/L (98-107) Carbon Dioxide Level 34 mmol/L (21-32) Anion Gap 9 (6-14) Blood Urea Nitrogen 39 mg/dL (7-20) Creatinine 3.9 mg/dL (0.6-1.0) Estimated GFR (Cockcroft-Gault) 12.1 Glucose Level 179 mg/dL (70-99) Calcium Level 8.1 mg/dL (8.5-10.1) Phosphorus Level 4.5 mg/dL (2.6-4.7) Albumin 1.5 g/dL (3.4-5.0) Allergies: Coded Allergies: Sulfa (Sulfonamide Antibiotics) (Verified Allergy, Severe, Anaphylaxis, ) meropenem (Verified Allergy, Intermediate, Rash, 02/01/18) Tolerates ancef piperacillin (Verified Allergy, Intermediate, Rash, 02/01/18) Tolerates ancef strawberry (Verified Allergy, Intermediate, 02/01/18) tazobactam (Verified Allergy, Intermediate, 02/01/18) cefazolin (Verified Adverse Reaction, Intermediate, Itching, 02/01/18) Causes Vomiting fentanyl (Verified Adverse Reaction, Intermediate, Nausea and Vomiting, ) Vomiting Medications: Current Medications Medications (Trade) Dose Ordered Sig/Martin Route PRN Reason Start Time Stop Time Status Last Admin Dose Admin Vancomycin HCl 500 mg/Sodium Chloride 100 ml @ 100 mls/hr QTUTHSA IV 02/02/18 16:00 02/02/18 16:15 Prochlorperazine Edisylate (Compazine) 10 mg PRN Q6HRS PRN IV NAUSEA/VOMITING 2ND CHOICE 02/02/18 11:30 02/02/18 23:23 Vancomycin HCl (Vanco Per Pharmacy) 1 each PRN DAILY PRN MC SEE COMMENTS 02/02/18 14:00 02/02/18 13:57 Imaging: Imaging: CXR 02/02 IMPRESSION: 1. Interval insertion of a left jugular central venous catheter in satisfactory position. 2. Unchanged blunting of the left lateral costophrenic angle compatible with a small amount of pleural fluid versus scarring. PE: GEN: NAD HEENT: Atraumatic, PERRL LUNGS: NC HEART: RRR ABD: BS quiet, soft, non-tender, +PD cath EXTREMITY: LBKA, RLE wound NEURO/PSYCH: A & O 3 A/P: A/P: S/p RLE debridement Coffee-ground emesis H/o gastroparesis w/ daily vomiting - last EGD 01/2017 w/ non-erosive gastritis and retained food, on e-mycin BID GERD - untreated CRC screen - unsure H/o C Diff - last BM ~1 week ago Chronic anemia, on ASA and Brilinta ESRD on dialysis, CAD, PAD, DM -- Hgb 10.8 to 7.9. She ate breakfast this morning. 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 Monitor labs and for recurrent symptoms. EDDY IGLESIAS Feb 03, 2018 09:33
--- NOTE | 2018-02-03 09:38 | PDOC ---
Provider Note Provider Note Vascular F/U Debrided on Thu. , wound clean today, slight oozing at distal end of muscle flap , graft nicely covered VAC replaced Imp: Stable with a large rt groin wound Plan: PT for transfers, sitting, replace VAC on Thursday then recheck on Thursday, should not go to PP until early next week BRITNEY SANDOVAL MD Feb 03, 2018 09:38
--- NOTE | 2018-02-03 09:43 | PDOC ---
Infectious Disease Note Subjective: Subjective Pt has bleeding from rt groin wound this am has nausea and vomiting has blurred vision has swelling in both upper ext and rle Denies F/C/ abdo pain /D/SOA no Urine output for a couple of days has constipation ROS: ROS Negative except for above. Vital Signs: Vital Signs Vital Signs Date Time Temp Pulse Resp B/P (MAP) Pulse Ox O2 Delivery O2 Flow Rate FiO2 02/03/18 08:53 Nasal Cannula 2.0 02/03/18 07:00 97.7 74 18 154/63 (93) 100 97.7 Physical Exam: PHYSICAL EXAM GENERAL: Propped up in bed, alert, in NAD HEENT: Oral cavity clear NECK: Supple LUNGS: Clear. HEART: S1, S2 regular. ABDOMEN: Soft, NT EXTREMITIES: Left BKA. RLE edema with wound vac in place . NEUROLOGIC: Alert and responds appropriately Tunnelled FLJ (01/29) Medications: Inpatient Meds: Current Medications Medications (Trade) Dose Ordered Sig/Martin Start Time Stop Time Status Last Admin Dose Admin Albumin Human 200 ml @ 200 mls/hr 1X PRN PRN 02/02/18 09:45 02/02/18 15:44 DC Albuterol Sulfate (Ventolin Neb Soln) 2.5 mg PRN BID PRN 01/27/18 12:30 01/27/18 21:59 2.5 MG Amiodarone HCl (Cordarone) 200 mg DAILY 01/27/18 12:30 01/31/18 09:31 200 MG Aspirin (Anthony Aspirin) 325 mg DAILY 01/27/18 12:30 01/28/18 14:26 DC 01/28/18 09:13 325 MG Aspirin (Ecotrin) 81 mg [id number] 01/29/18 08:00 01/31/18 09:29 81 MG Atorvastatin Calcium (Lipitor) 80 mg QHS 01/27/18 21:00 02/02/18 21:00 80 MG Bacitracin (Bacitracin) 50,000 unit STK-MED ONCE 02/01/18 13:32 02/01/18 14:32 DC 02/01/18 14:55 50,000 UNIT Bacitracin 44166 unit/Sodium Chloride 3,000 ml @ 0 mls/hr 1X ONCE 01/27/18 13:15 10/3/18 13:16 Cancel Calcitriol (Rocaltrol) 0.25 mcg DAILY 01/27/18 12:30 01/31/18 09:29 0.25 MCG Carbamazepine (TEGretol) 200 mg BID 01/27/18 12:30 02/02/18 20:59 200 MG Carvedilol (Coreg) 12.5 mg BIDWMEALS 01/27/18 12:30 02/02/18 17:31 12.5 MG Cefazolin Sodium 1 gm/Sodium Chloride 500 ml @ 500 mls/hr 1X ONCE 02/01/18 06:00 02/01/18 06:59 DC Cefepime HCl (Maxipime) 1 gm Q24H 01/28/18 10:00 02/01/18 12:18 1 GM Cefepime HCl 1 gm/ Dextrose 50 ml @ 100 mls/hr DAILY 01/29/18 09:00 UNV Cellulose (Surgicel Fibrillar 1x2) 1 each STK-MED ONCE 02/01/18 12:05 02/01/18 13:06 DC Clopidogrel Bisulfate (Plavix) 75 mg DAILYWBKFT 01/28/18 08:00 01/28/18 14:28 DC 01/28/18 09:13 75 MG Darbepoetin Mauricio (Aranesp) 60 mcg WEEKLYHS 02/01/18 21:00 02/01/18 21:38 60 MCG Dexamethasone Sodium Phosphate (Decadron) 20 mg STK-MED ONCE 02/01/18 14:25 02/01/18 14:26 DC Dextrose (Dextrose 50%-Water Syringe) 12.5 gm PRN Q15MIN PRN 01/28/18 14:45 Diltiazem HCl (Cardizem 24hr Cd) 120 mg DAILY 01/27/18 12:30 01/31/18 09:30 120 MG Diphenhydramine HCl (Benadryl) 25 mg PRN Q6HRS PRN 01/28/18 14:15 Erythromycin (E-Mycin) 250 mg BID 01/27/18 21:00 02/02/18 20:59 250 MG Fenofibrate (Lofibra) 134 mg QHS 01/27/18 21:00 02/02/18 20:59 134 MG Fentanyl Citrate (Fentanyl 2ml Vial) 50 mcg PRN Q5MIN PRN 01/27/18 10:45 01/27/18 18:00 DC Furosemide (Lasix) 80 mg [id number] 01/27/18 12:30 02/02/18 16:15 80 MG Gentamicin Sulfate 235 mg/ Dextrose 105.875 ml @ 105.875 mls/hr 1X ONCE 01/27/18 16:00 01/27/18 16:59 DC 01/27/18 19:56 105.875 MLS/HR Heparin Sodium (Porcine) (Hep Lock Adult) 500 unit 1X ONCE 01/29/18 14:00 01/29/18 14:17 DC 01/29/18 14:04 500 UNIT Hydralazine HCl (Apresoline) 10 mg PRN TID PRN 01/28/18 14:45 Hydromorphone HCl (Dilaudid) 0.5 mg PRN Q10MIN PRN 02/01/18 07:00 02/02/18 06:59 DC 02/01/18 16:08 0.5 MG Influenza Virus Vaccine (Afluria Trivalent [id number] Syringe) 0.5 ml ONCE ONCE 01/27/18 09:00 01/27/18 09:01 DC 01/27/18 09:00 0.5 ML Info (PHARMACY MONITORING -- do not chart) 1 each PRN DAILY PRN 02/02/18 09:45 UNV Insulin Glargine (Lantus) 22 units QHS 01/27/18 21:00 02/02/18 21:47 4 UNITS Insulin Human Lispro (HumaLOG) 0-5 UNITS TIDWMEALS 01/28/18 17:00 02/02/18 17:34 3 UNITS Lactobacillus Rhamnosus (Culturelle) 1 cap BID 01/27/18 21:00 02/02/18 21:00 1 CAP Lidocaine (Lidoderm) 1 patch PRN DAILY PRN 01/27/18 09:00 Lidocaine HCl (Lidocaine 1% 50ml Vial) 50 ml 1X ONCE 01/30/18 15:45 01/30/18 15:46 DC Lidocaine HCl (Xylocaine 1% Pf 30ml Vial) 30 ml 1X ONCE 02/01/18 13:15 02/01/18 13:18 DC Lidocaine HCl (Xylocaine-Mpf 1% 2ml Vial) 2 ml PRN 1X PRN 10/8/18 07:00 02/02/18 06:59 DC Lidocaine HCl (Xylocaine-Mpf 2% Vial) 2 ml STK-MED ONCE 01/28/18 12:00 02/01/18 08:30 DC Lidocaine/ Epinephrine (LIDOCAINE 1%-EPI 1:100,000 Multi-Dose) 8 ml 1X ONCE 01/29/18 14:00 01/29/18 14:17 DC 01/29/18 14:01 8 ML Metronidazole 100 ml @ 100 mls/hr Q12HR 01/28/18 10:00 02/02/18 21:00 100 MLS/HR Midazolam HCl (Versed) 2 mg STK-MED ONCE 02/01/18 14:25 02/01/18 14:26 DC Miscellaneous (Lidoderm Patch Removal) 1 ea QHS 01/27/18 21:00 01/29/18 21:00 1 EA Morphine Sulfate (Morphine Sulfate) 10 mg STK-MED ONCE 02/01/18 14:24 02/01/18 14:25 DC Morphine Sulfate (Ms Contin) 15 mg BID 01/27/18 12:30 02/02/18 20:59 15 MG Niacin (Slo-Niacin) 500 mg QHS 01/27/18 21:00 02/02/18 21:00 500 MG Nitroglycerin (Nitrostat) 0.4 mg PRN Q5MIN PRN 01/27/18 12:00 Non-Formulary Medication (Albuterol Sulfate (Proventil Hfa Inhaler)) 2 puff BID PRN 01/27/18 12:00 UNV Non-Formulary Medication (Fluconazole (Diflucan)) 100 mg PRN 01/27/18 12:00 UNV Nystatin (Nystop) 1 erich PRN BID PRN 01/27/18 12:00 Ondansetron HCl (Zofran Odt) 4 mg PRN Q6HRS PRN 01/27/18 12:15 Ondansetron HCl (Zofran) 4 mg STK-MED ONCE 02/01/18 14:25 02/01/18 14:26 DC Oxycodone/ Acetaminophen (Percocet 10/325) 1 tab PRN Q4HRS PRN 01/29/18 07:45 01/31/18 16:59 1 TAB Pharmacy Consult (C.diff Med Screen By Rx) 1 each 1X ONCE 01/27/18 01:00 01/27/18 01:01 Cancel Prochlorperazine Edisylate (Compazine) 10 mg PRN Q6HRS PRN 02/02/18 11:30 02/02/18 23:23 10 MG Promethazine HCl (Phenergan Im) 12.5 mg 1X ONCE 01/29/18 12:45 01/29/18 12:46 DC Promethazine HCl (Phenergan Supp) 12.5 mg 1X ONCE 01/29/18 12:15 01/29/18 12:36 DC Propofol 20 ml @ As Directed STK-MED ONCE 02/01/18 14:25 02/01/18 14:26 DC Ringer's Solution 1,000 ml @ 30 mls/hr Q24H 02/01/18 07:00 02/01/18 18:59 DC Sevoflurane (Ultane) 30 ml STK-MED ONCE 01/27/18 13:11 01/27/18 13:12 DC Sodium Chloride 1,000 ml @ 400 mls/hr Q2H30M PRN 02/02/18 09:39 02/02/18 21:38 DC Sodium Chloride (Normal Saline Flush) 10 ml 1X PRN PRN 01/30/18 13:15 01/31/18 13:14 DC Ticagrelor (Brilinta) 90 mg BID 01/28/18 21:00 02/02/18 21:00 90 MG Tramadol HCl (Ultram) 50 mg PRN Q4HRS PRN 01/27/18 12:00 Vancomycin HCl (Vanco Per Pharmacy) 1 each PRN DAILY PRN 02/02/18 14:00 02/02/18 13:57 1 EACH Vancomycin HCl (Vancomycin Random Level) 1 each 1X ONCE 01/28/18 05:00 01/28/18 05:01 DC 01/28/18 05:00 1 EACH Vancomycin HCl 1.75 gm/Sodium Chloride 500 ml @ 250 mls/hr 1X ONCE 01/26/18 23:00 01/27/18 00:59 DC 01/26/18 23:53 250 MLS/HR Vancomycin HCl 500 mg/Sodium Chloride 100 ml @ 100 mls/hr QTUTHSA 02/02/18 16:00 10/9/18 16:15 100 MLS/HR Vitamin B Complex/ Vitamin C (Melly-Shabbir) 1 tab DAILY 01/27/18 12:30 01/31/18 09:30 1 TAB Labs: Lab Laboratory Tests Test 02/02/18 16:57 02/02/18 20:44 02/03/18 04:25 02/03/18 07:37 Glucose (Fingerstick) 224 mg/dL (70-99) 187 mg/dL (70-99) 140 mg/dL (70-99) White Blood Count 15.1 x10^3/uL (4.0-11.0) Red Blood Count 2.55 x10^6/uL (3.50-5.40) Hemoglobin 7.9 g/dL (12.0-15.5) Hematocrit 24.0 % (36.0-47.0) Mean Corpuscular Volume 94 fL (79-100) Mean Corpuscular Hemoglobin 31 pg (25-35) Mean Corpuscular Hemoglobin Concent 33 g/dL (31-37) Red Cell Distribution Width 17.5 % (11.5-14.5) Platelet Count 368 x10^3/uL (140-400) Neutrophils (%) (Auto) 84 % (31-73) Lymphocytes (%) (Auto) 9 % (24-48) Monocytes (%) (Auto) 6 % (0-9) Eosinophils (%) (Auto) 0 % (0-3) Basophils (%) (Auto) 0 % (0-3) Neutrophils # (Auto) 12.7 x10^3uL (1.8-7.7) Lymphocytes # (Auto) 1.4 x10^3/uL (1.0-4.8) Monocytes # (Auto) 0.9 x10^3/uL (0.0-1.1) Eosinophils # (Auto) 0.0 x10^3/uL (0.0-0.7) Basophils # (Auto) 0.0 x10^3/uL (0.0-0.2) Sodium Level 146 mmol/L (136-145) Potassium Level 4.3 mmol/L (3.5-5.1) Chloride Level 103 mmol/L (98-107) Carbon Dioxide Level 34 mmol/L (21-32) Anion Gap 9 (6-14) Blood Urea Nitrogen 39 mg/dL (7-20) Creatinine 3.9 mg/dL (0.6-1.0) Estimated GFR (Cockcroft-Gault) 12.1 Glucose Level 179 mg/dL (70-99) Calcium Level 8.1 mg/dL (8.5-10.1) Phosphorus Level 4.5 mg/dL (2.6-4.7) Albumin 1.5 g/dL (3.4-5.0) Micro Micro 01/26/18 Blood Culture - Preliminary, Resulted NO GROWTH AFTER 4 DAYS 01/27 ANAEROBIC RES 1 Preliminary No anaerobes recovered in 24 hours. AEROBIC RES 1 Final Klebsiella pneumoniae MICS are expressed in micrograms per mL Antibiotic RSLT#1 RSLT#2 Amoxicillin/Clavulanic Acid S<=2 Ampicillin R>=32 Cefepime S<=0.12 Ceftriaxone S<=0.25 Cefuroxime S =4 Ciprofloxacin S =1 Ertapenem S<=0.12 Gentamicin S<=1 Imipenem S<=0.25 Levofloxacin S =1 Meropenem S<=0.25 Piperacillin/Tazobactam S<=4 Tetracycline S<=1 Tobramycin S<=1 Trimethoprim/Sulfa S<=20 Objective: Assessment: Right leg surgery site infection s/p excisional debridement; muscle flap & wound VAC placement on 01/27 C/S + . Klebsiella (R amp) and g/S GPCs ,latter ID pending S/P repeat I and D on 02/01 vascular planning for wound vac change later this week and early next week Leucocytosis ? reactive PAD s/p leg bypass on 01/06 ESRD Multiple antibiotic allergies Amiodarone therapy h/o VRE, MRSA, c. diff Nausea and vomiting Constipation Blurred vision Plan: Plan of Care Cont cefepime and vanc dc Flagyl as she has nausea and vomiting -gent x 1 on 01/27 Probiotics f/u cultures Pain management per primary Supportive care GRACIELA LÓPEZ MD Feb 03, 2018 09:43
[2018-02-03] MEDS: FAMOTIDINE 20 MG/2 ML VIAL IVP SCH (10:48)
[2018-02-03] MEDS: oxyCODONE/APAP 10/325 1 TAB TABLET PO PRN (10:48)
[2018-02-03] MEDS: MORPHINE ER 15 MG TABLET.ER PO SCH ×2 (10:49→20:50)
[2018-02-03] MEDS: FOLIC/VIT B COMP W-C (RENAL) TABLET. PO SCH (10:49)
[2018-02-03] MEDS: AMIODARONE HCL 200 MG TABLET. PO SCH (10:49)
[2018-02-03] MEDS: TICAGRELOR 90 MG TABLET. PO SCH ×2 (10:50→20:50)
[2018-02-03] MEDS: LACTOBACILLUS RHAMNOSUS GG 1 CAPSULE. PO SCH ×2 (10:50→20:50)
[2018-02-03] MEDS: ASPIRIN ENTERIC COATED 81 MG TABLET.DR. PO SCH (10:50)
[2018-02-03] MEDS: CARVEDILOL 12.5 MG TABLET. PO SCH ×2 (10:50→18:05)
[2018-02-03] MEDS: CALCITRIOL 0.25 MCG CAPSULE. PO SCH (10:50)
[2018-02-03] MEDS: carBAMazepine 200 MG TABLET PO SCH ×2 (10:50→20:50)
[2018-02-03] MEDS: ERYTHROMYCIN BASE 250 MG TABLET PO SCH ×2 (10:52→20:49)
[2018-02-03] MEDS: FUROSEMIDE 80 MG TABLET. PO SCH ×2 (10:52→14:00)
[2018-02-03] MEDS: CEFEPIME HCL IV Push 1 GM VIAL. IVP SCH (10:54)
[2018-02-03 11:00] VITALS: BP 160/61
--- NOTE | 2018-02-03 11:37 | PDOC ---
Renal-Progress Notes Subjective Notes Notes NO NEW COMPLAINTS History of Present Illness Hx of present illness STABLE Vitals Vitals Vital Signs Date Time Temp Pulse Resp B/P (MAP) Pulse Ox O2 Delivery O2 Flow Rate FiO2 02/03/18 11:00 97.7 86 18 160/61 (94) 100 Room Air 97.7 02/03/18 08:53 2.0 Weight Weight [ ] I.O. Intake and Output Intake and Output 02/03/18 07:00 Intake Total 1100 ml Output Total 500 ml Balance 600 ml Intake Oral 1100 ml Emesis 500 ml Labs Labs Laboratory Tests Test 02/02/18 16:57 02/02/18 20:44 02/03/18 04:25 02/03/18 07:37 Glucose (Fingerstick) 224 mg/dL (70-99) 187 mg/dL (70-99) 140 mg/dL (70-99) White Blood Count 15.1 x10^3/uL (4.0-11.0) Red Blood Count 2.55 x10^6/uL (3.50-5.40) Hemoglobin 7.9 g/dL (12.0-15.5) Hematocrit 24.0 % (36.0-47.0) Mean Corpuscular Volume 94 fL (79-100) Mean Corpuscular Hemoglobin 31 pg (25-35) Mean Corpuscular Hemoglobin Concent 33 g/dL (31-37) Red Cell Distribution Width 17.5 % (11.5-14.5) Platelet Count 368 x10^3/uL (140-400) Neutrophils (%) (Auto) 84 % (31-73) Lymphocytes (%) (Auto) 9 % (24-48) Monocytes (%) (Auto) 6 % (0-9) Eosinophils (%) (Auto) 0 % (0-3) Basophils (%) (Auto) 0 % (0-3) Neutrophils # (Auto) 12.7 x10^3uL (1.8-7.7) Lymphocytes # (Auto) 1.4 x10^3/uL (1.0-4.8) Monocytes # (Auto) 0.9 x10^3/uL (0.0-1.1) Eosinophils # (Auto) 0.0 x10^3/uL (0.0-0.7) Basophils # (Auto) 0.0 x10^3/uL (0.0-0.2) Sodium Level 146 mmol/L (136-145) Potassium Level 4.3 mmol/L (3.5-5.1) Chloride Level 103 mmol/L (98-107) Carbon Dioxide Level 34 mmol/L (21-32) Anion Gap 9 (6-14) Blood Urea Nitrogen 39 mg/dL (7-20) Creatinine 3.9 mg/dL (0.6-1.0) Estimated GFR (Cockcroft-Gault) 12.1 Glucose Level 179 mg/dL (70-99) Calcium Level 8.1 mg/dL (8.5-10.1) Phosphorus Level 4.5 mg/dL (2.6-4.7) Albumin 1.5 g/dL (3.4-5.0) Test 02/03/18 10:43 Glucose (Fingerstick) 121 mg/dL (70-99) Micro Micro Microbiology 01/26/18 Blood Culture - Final, Complete NO GROWTH AFTER 5 DAYS 01/27/18 Anaerobic/Aerobic Culture - Final, Complete 01/27/18 Anaerobic Culture Result 1 (ROSALIND) - Final, Complete 01/27/18 Aerobic Culture - Final, Complete 01/27/18 Aerobic Culture Result 1 (ROSALIND) - Final, Complete 01/27/18 Antimicrobic Susceptibility - Final, Complete 01/27/18 Gram Stain - Final, Complete 01/27/18 Gram Stain Result 1 (ROSALIND) - Final, Complete 01/27/18 Gram Stain Result 2 (ROSALIND) - Final, Complete Review of Systems Constitutional: yes: weakness, alert, oriented Ears/Nose/Throat: Yes: no symptom reported Eyes: Yes: no symptom reported Pulmonary: Yes no symptom reported Cardiovascular: Yes no symptom reported Gastrointestional: Yes: no symptom reported Genitourinary: Yes: no symptom reported Musculoskeletal: Yes: leg pain Skin: Yes color change Psychiatric/Neurological: Yes: no symptom reported Physical Exam General Appearance: no apparent distress Respiratory: bilateral CTA Heart: S1S2 Abdomen: soft, bowel sounds present Genitourinary: bladder flat Extremities: pulses present Assessment Assessment IMP ESRD-ON PD BUT HAS FUNCTIONING RIGHT ARM AVF ANEMIA DM II HTN PAD R LE CELLULITIS PLAN HD TOMORROW BACK TO PD WHEN HOME ANTIBIOTICS WILL FOLLOW CHARLY ZAVALA MD Feb 03, 2018 11:37
--- NOTE | 2018-02-03 13:09 | PDOC ---
PROGRESS NOTES Chief Complaint Chief Complaint Right groin wound infection Sepsis from Right LE cellulitis ESRD on PD and HD Left BKA History of Present Illness History of Present Illness Pt seen and examine Dw RN Nausea Vision changes NAD Coffee ground emesis Vitals Vitals Vital Signs Date Time Temp Pulse Resp B/P (MAP) Pulse Ox O2 Delivery O2 Flow Rate FiO2 02/03/18 12:30 Room Air 02/03/18 11:00 97.7 86 18 160/61 (94) 100 97.7 02/03/18 08:53 2.0 Physical Exam Physical Exam GENERAL: Propped up in bed, alert, in NAD HEENT: Oral cavity clear NECK: Supple LUNGS: Clear. HEART: S1, S2 regular. ABDOMEN: Soft, NT EXTREMITIES: Left BKA. RLE edema with wound vac in place . NEUROLOGIC: Alert and responds appropriately Tunnelled RIJ (01/29) General: Alert, Oriented X3, Cooperative, No acute distress Heart: Regular rate, Normal S1, Normal S2 Lungs: Clear, Wheezing Abdomen: Normal bowel sounds, Soft, No tenderness, Other (PD cath clean dry and intact) Extremities: No clubbing, Other (RLE red along staple line with swollen red foot and right groin open wound, foul smelling. LLE BKA clean. RUE fistula with good bruit) Skin: No breakdown, Other (dehiscence of the proximal right common femoral incision and vein harvest site with lower extremity edema and mild cellulitis) Labs LABS Laboratory Tests Test 02/02/18 16:57 02/02/18 20:44 02/03/18 04:25 02/03/18 07:37 Glucose (Fingerstick) 224 mg/dL (70-99) 187 mg/dL (70-99) 140 mg/dL (70-99) White Blood Count 15.1 x10^3/uL (4.0-11.0) Red Blood Count 2.55 x10^6/uL (3.50-5.40) Hemoglobin 7.9 g/dL (12.0-15.5) Hematocrit 24.0 % (36.0-47.0) Mean Corpuscular Volume 94 fL (79-100) Mean Corpuscular Hemoglobin 31 pg (25-35) Mean Corpuscular Hemoglobin Concent 33 g/dL (31-37) Red Cell Distribution Width 17.5 % (11.5-14.5) Platelet Count 368 x10^3/uL (140-400) Neutrophils (%) (Auto) 84 % (31-73) Lymphocytes (%) (Auto) 9 % (24-48) Monocytes (%) (Auto) 6 % (0-9) Eosinophils (%) (Auto) 0 % (0-3) Basophils (%) (Auto) 0 % (0-3) Neutrophils # (Auto) 12.7 x10^3uL (1.8-7.7) Lymphocytes # (Auto) 1.4 x10^3/uL (1.0-4.8) Monocytes # (Auto) 0.9 x10^3/uL (0.0-1.1) Eosinophils # (Auto) 0.0 x10^3/uL (0.0-0.7) Basophils # (Auto) 0.0 x10^3/uL (0.0-0.2) Sodium Level 146 mmol/L (136-145) Potassium Level 4.3 mmol/L (3.5-5.1) Chloride Level 103 mmol/L (98-107) Carbon Dioxide Level 34 mmol/L (21-32) Anion Gap 9 (6-14) Blood Urea Nitrogen 39 mg/dL (7-20) Creatinine 3.9 mg/dL (0.6-1.0) Estimated GFR (Cockcroft-Gault) 12.1 Glucose Level 179 mg/dL (70-99) Calcium Level 8.1 mg/dL (8.5-10.1) Phosphorus Level 4.5 mg/dL (2.6-4.7) Albumin 1.5 g/dL (3.4-5.0) Test 02/03/18 10:43 Glucose (Fingerstick) 121 mg/dL (70-99) Review of Systems Review of Systems Nausea Vision changes Coffee ground emesis Assessment and Plan Assessmemt and Plan Assessment: Right groin wound infection Sepsis from Right LE cellulitis ESRD on PD and HD Left BKA Plan: Wound care H2 bulmaro Consult optho HD Continue antibiotics Antiemetics prn Analgesics prn Comment Review of Relevant I have reviewed the following items bert (where applicable) has been applied. Labs Laboratory Tests Test 02/01/18 15:24 02/01/18 16:43 02/01/18 21:20 02/02/18 04:15 Glucose (Fingerstick) 85 mg/dL (70-99) 105 mg/dL (70-99) 192 mg/dL (70-99) White Blood Count 9.5 x10^3/uL (4.0-11.0) Red Blood Count 3.38 x10^6/uL (3.50-5.40) Hemoglobin 10.8 g/dL (12.0-15.5) Hematocrit 31.9 % (36.0-47.0) Mean Corpuscular Volume 94 fL (79-100) Mean Corpuscular Hemoglobin 32 pg (25-35) Mean Corpuscular Hemoglobin Concent 34 g/dL (31-37) Red Cell Distribution Width 17.5 % (11.5-14.5) Platelet Count 403 x10^3/uL (140-400) Neutrophils (%) (Auto) 95 % (31-73) Lymphocytes (%) (Auto) 3 % (24-48) Monocytes (%) (Auto) 2 % (0-9) Eosinophils (%) (Auto) 0 % (0-3) Basophils (%) (Auto) 0 % (0-3) Neutrophils # (Auto) 9.0 x10^3uL (1.8-7.7) Lymphocytes # (Auto) 0.3 x10^3/uL (1.0-4.8) Monocytes # (Auto) 0.2 x10^3/uL (0.0-1.1) Eosinophils # (Auto) 0.0 x10^3/uL (0.0-0.7) Basophils # (Auto) 0.0 x10^3/uL (0.0-0.2) Sodium Level 144 mmol/L (136-145) Potassium Level 4.7 mmol/L (3.5-5.1) Chloride Level 102 mmol/L (98-107) Carbon Dioxide Level 33 mmol/L (21-32) Anion Gap 9 (6-14) Blood Urea Nitrogen 44 mg/dL (7-20) Creatinine 5.9 mg/dL (0.6-1.0) Estimated GFR (Cockcroft-Gault) 7.5 Glucose Level 375 mg/dL (70-99) Calcium Level 8.1 mg/dL (8.5-10.1) Phosphorus Level 6.8 mg/dL (2.6-4.7) Albumin 1.8 g/dL (3.4-5.0) Test 02/02/18 08:39 02/02/18 16:57 02/02/18 20:44 02/03/18 04:25 Glucose (Fingerstick) 333 mg/dL (70-99) 224 mg/dL (70-99) 187 mg/dL (70-99) White Blood Count 15.1 x10^3/uL (4.0-11.0) Red Blood Count 2.55 x10^6/uL (3.50-5.40) Hemoglobin 7.9 g/dL (12.0-15.5) Hematocrit 24.0 % (36.0-47.0) Mean Corpuscular Volume 94 fL (79-100) Mean Corpuscular Hemoglobin 31 pg (25-35) Mean Corpuscular Hemoglobin Concent 33 g/dL (31-37) Red Cell Distribution Width 17.5 % (11.5-14.5) Platelet Count 368 x10^3/uL (140-400) Neutrophils (%) (Auto) 84 % (31-73) Lymphocytes (%) (Auto) 9 % (24-48) Monocytes (%) (Auto) 6 % (0-9) Eosinophils (%) (Auto) 0 % (0-3) Basophils (%) (Auto) 0 % (0-3) Neutrophils # (Auto) 12.7 x10^3uL (1.8-7.7) Lymphocytes # (Auto) 1.4 x10^3/uL (1.0-4.8) Monocytes # (Auto) 0.9 x10^3/uL (0.0-1.1) Eosinophils # (Auto) 0.0 x10^3/uL (0.0-0.7) Basophils # (Auto) 0.0 x10^3/uL (0.0-0.2) Sodium Level 146 mmol/L (136-145) Potassium Level 4.3 mmol/L (3.5-5.1) Chloride Level 103 mmol/L (98-107) Carbon Dioxide Level 34 mmol/L (21-32) Anion Gap 9 (6-14) Blood Urea Nitrogen 39 mg/dL (7-20) Creatinine 3.9 mg/dL (0.6-1.0) Estimated GFR (Cockcroft-Gault) 12.1 Glucose Level 179 mg/dL (70-99) Calcium Level 8.1 mg/dL (8.5-10.1) Phosphorus Level 4.5 mg/dL (2.6-4.7) Albumin 1.5 g/dL (3.4-5.0) Test 02/03/18 07:37 02/03/18 10:43 Glucose (Fingerstick) 140 mg/dL (70-99) 121 mg/dL (70-99) Laboratory Tests Test 02/02/18 16:57 02/02/18 20:44 02/03/18 04:25 02/03/18 07:37 Glucose (Fingerstick) 224 mg/dL (70-99) 187 mg/dL (70-99) 140 mg/dL (70-99) White Blood Count 15.1 x10^3/uL (4.0-11.0) Red Blood Count 2.55 x10^6/uL (3.50-5.40) Hemoglobin 7.9 g/dL (12.0-15.5) Hematocrit 24.0 % (36.0-47.0) Mean Corpuscular Volume 94 fL (79-100) Mean Corpuscular Hemoglobin 31 pg (25-35) Mean Corpuscular Hemoglobin Concent 33 g/dL (31-37) Red Cell Distribution Width 17.5 % (11.5-14.5) Platelet Count 368 x10^3/uL (140-400) Neutrophils (%) (Auto) 84 % (31-73) Lymphocytes (%) (Auto) 9 % (24-48) Monocytes (%) (Auto) 6 % (0-9) Eosinophils (%) (Auto) 0 % (0-3) Basophils (%) (Auto) 0 % (0-3) Neutrophils # (Auto) 12.7 x10^3uL (1.8-7.7) Lymphocytes # (Auto) 1.4 x10^3/uL (1.0-4.8) Monocytes # (Auto) 0.9 x10^3/uL (0.0-1.1) Eosinophils # (Auto) 0.0 x10^3/uL (0.0-0.7) Basophils # (Auto) 0.0 x10^3/uL (0.0-0.2) Sodium Level 146 mmol/L (136-145) Potassium Level 4.3 mmol/L (3.5-5.1) Chloride Level 103 mmol/L (98-107) Carbon Dioxide Level 34 mmol/L (21-32) Anion Gap 9 (6-14) Blood Urea Nitrogen 39 mg/dL (7-20) Creatinine 3.9 mg/dL (0.6-1.0) Estimated GFR (Cockcroft-Gault) 12.1 Glucose Level 179 mg/dL (70-99) Calcium Level 8.1 mg/dL (8.5-10.1) Phosphorus Level 4.5 mg/dL (2.6-4.7) Albumin 1.5 g/dL (3.4-5.0) Test 02/03/18 10:43 Glucose (Fingerstick) 121 mg/dL (70-99) Microbiology 01/26/18 Blood Culture - Final, Complete NO GROWTH AFTER 5 DAYS 01/27/18 Anaerobic/Aerobic Culture - Final, Complete 01/27/18 Anaerobic Culture Result 1 (ROSALIND) - Final, Complete 01/27/18 Aerobic Culture - Final, Complete 01/27/18 Aerobic Culture Result 1 (ROSALIND) - Final, Complete 01/27/18 Antimicrobic Susceptibility - Final, Complete 01/27/18 Gram Stain - Final, Complete 01/27/18 Gram Stain Result 1 (ROSALIND) - Final, Complete 01/27/18 Gram Stain Result 2 (ROSALIND) - Final, Complete Medications Current Medications Hydromorphone HCl (Dilaudid) 2 mg 1X ONCE IV Last administered on 01/26/18at 22 :39; Start 01/26/18 at 22:00; Stop 01/26/18 at 22:01; Status DC Vancomycin HCl (Vanco Per Pharmacy) 1 each PRN DAILY PRN MC SEE COMMENTS Last administered on 01/31/18at 17:20; Start 01/26/18 at 22:45; Stop 02/01/18 at 11:41 ; Status DC Vancomycin HCl 1.75 gm/Sodium Chloride 500 ml @ 250 mls/hr 1X ONCE IV Last administered on 01/26/18at 23:53; Start 01/26/18 at 23:00; Stop 01/27/18 at 00:59 ; Status DC Ondansetron HCl (Zofran) 4 mg PRN Q8HRS PRN IV NAUSEA/VOMITING 1ST CHOICE; Start 01/26/18 at 23:15; Stop 01/27/18 at 23:14; Status DC Sodium Chloride 1,000 ml @ 75 mls/hr [id number] IV Last administered on at 00:39; Start 01/26/18 at 23:30; Stop 01/27/18 at 23:29; Status DC Pharmacy Consult (C.diff Med Screen By Rx) 1 each 1X ONCE MC ; Start 01/27/18 at 01:00; Stop 01/27/18 at 01:01; Status Cancel Influenza Virus Vaccine (Afluria Trivalent [id number] Syringe) 0.5 ml ONCE ONCE VAX IM Last administered on 01/27/18at 09:00; Start 01/27/18 at 09:00; Stop 01/27/18 at 09:01; Status DC Vancomycin HCl (Vancomycin Random Level) 1 each 1X ONCE MC Last administered on 01/28/18at 05:00; Start 01/28/18 at 05:00; Stop 01/28/18 at 05:01; Status DC Hydromorphone HCl (Dilaudid) 1 mg PRN Q3HRS PRN IV SEVERE PAIN Last administered on 02/03/18at 12:28; Start 01/27/18 at 03:30 Ondansetron HCl (Zofran) 4 mg PRN Q6HRS PRN IV NAUSEA/VOMITING; Start 01/27/18 at 10:45; Stop 01/27/18 at 18:00; Status DC Fentanyl Citrate (Fentanyl 2ml Vial) 25 mcg PRN Q5MIN PRN IV MILD PAIN; Start 01/27/18 at 10:45; Stop 01/27/18 at 18:00; Status DC Fentanyl Citrate (Fentanyl 2ml Vial) 50 mcg PRN Q5MIN PRN IV MODERATE TO SEVERE PAIN; Start 01/27/18 at 10:45; Stop 01/27/18 at 18:00; Status DC Morphine Sulfate (Morphine Sulfate) 1 mg PRN Q10MIN PRN IV SEVERE PAIN Last administered on 01/27/18at 16:28; Start 01/27/18 at 10:45; Stop 01/27/18 at 18:00 ; Status DC Ringer's Solution 1,000 ml @ 30 mls/hr Q24H IV Last administered on 01/27/18at 10:35; Start 01/27/18 at 10:35; Stop 01/27/18 at 19:36; Status DC Lidocaine HCl (Xylocaine-Mpf 1% 2ml Vial) 2 ml 1X PRN PRN ID IV START; Start 01/27/18 at 10:45; Stop 01/27/18 at 18:00; Status DC Hydromorphone HCl (Dilaudid) 0.5 mg PRN Q10MIN PRN IV SEV PAIN, Second choice Last administered on 01/27/18at 15:59; Start 01/27/18 at 10:45; Stop 01/27/18 at 18:00; Status DC Prochlorperazine Edisylate (Compazine) 5 mg PACU PRN PRN IV NAUSEA, MRX1; Start 01/27/18 at 10:45; Stop 01/27/18 at 18:00; Status DC Amiodarone HCl (Cordarone) 200 mg DAILY PO Last administered on 02/03/18at 10: 49; Start 01/27/18 at 12:30 Aspirin ([employer] Aspirin) 325 mg DAILY PO Last administered on 01/28/18at 09:13; Start 01/27/18 at 12:30; Stop 01/28/18 at 14:26; Status DC Carbamazepine (TEGretol) 200 mg BID PO Last administered on 02/03/18at 10:50; Start 01/27/18 at 12:30 Carvedilol (Coreg) 12.5 mg BIDWMEALS PO Last administered on 02/03/18at 10:50; Start 01/27/18 at 12:30 Vitamin B Complex/ Vitamin C (Melly-Shabbir) 1 tab DAILY PO Last administered on 10:49; Start 01/27/18 at 12:30 Furosemide (Lasix) 80 mg [id number] PO Last administered on 02/03/18 10:52; Start 01/27/18 at 12:30 Insulin Glargine (Lantus) 22 units QHS SQ Last administered on 02/02/18at 21:47 ; Start 01/27/18 at 21:00 Morphine Sulfate (Ms Contin) 15 mg BID PO Last administered on 02/03/18 10:49 ; Start 01/27/18 at 12:30 Nitroglycerin (Nitrostat) 0.4 mg PRN Q5MIN PRN SL CHEST PAIN; Start 01/27/18 at 12:00 Nystatin (Nystop) 1 susanna PRN BID PRN TP SKIN BREAKDOWN; Start 01/27/18 at 12:00 Tramadol HCl (Ultram) 50 mg PRN Q4HRS PRN PO HEADACHE; Start 01/27/18 at 12:00 Non-Formulary Medication (Albuterol Sulfate (Proventil Hfa Inhaler)) 2 puff BID PRN IH FOR ASTHMA; Start 01/27/18 at 12:00; Status UNV Atorvastatin Calcium (Lipitor) 80 mg QHS PO Last administered on 02/02/18 21: 00; Start 01/27/18 at 21:00 Calcitriol (Rocaltrol) 0.25 mcg DAILY PO Last administered on 02/03/18at 10:50 ; Start 01/27/18 at 12:30 Diltiazem HCl (Cardizem 24hr Cd) 120 mg DAILY PO Last administered on 10:51; Start 01/27/18 at 12:30 Erythromycin (E-Mycin) 250 mg BID PO Last administered on 02/03/18 10:52; Start 01/27/18 at 21:00 Fenofibrate (Lofibra) 134 mg QHS PO Last administered on 02/02/18 20:59; Start 01/27/18 at 21:00 Non-Formulary Medication (Fluconazole (Diflucan)) 100 mg PRN PO ; Start at 12:00; Status UNV Lidocaine (Lidoderm) 1 patch PRN DAILY PRN TD PAIN; Start 01/27/18 at 09:00 Niacin (Slo-Niacin) 500 mg QHS PO Last administered on 02/02/18 21:00; Start 01/27/18 at 21:00 Ondansetron HCl (Zofran Odt) 4 mg PRN Q6HRS PRN PO NAUSEA/VOMITING; Start 01/27 at 12:15 Miscellaneous (Lidoderm Patch Removal) 1 ea QHS MC Last administered on 10/5/ 18at 21:00; Start 01/27/18 at 21:00 Albuterol Sulfate (Ventolin Neb Soln) 2.5 mg PRN BID PRN NEB SHORTNESS OF BREATH Last administered on 01/27/18at 21:59; Start 01/27/18 at 12:30 Lidocaine HCl (Lidocaine 1% 50ml Vial) 50 ml 1X ONCE INJ Last administered on 01/27/18at 14:06; Start 01/27/18 at 12:45; Stop 01/27/18 at 12:46; Status DC Hydromorphone HCl (Dilaudid) 2 mg STK-MED ONCE .ROUTE ; Start 01/27/18 at 12:36 ; Stop 01/27/18 at 12:38; Status DC Propofol 20 ml @ As Directed STK-MED ONCE IV ; Start 01/27/18 at 12:38; Stop at 12:39; Status DC Bacitracin [id number] unit/Sodium Chloride 3,000 ml @ 0 mls/hr 1X ONCE IR ; Start 01/27/18 at 13:15; Stop 01/27/18 at 13:16; Status Cancel Dexamethasone Sodium Phosphate (Decadron) 20 mg STK-MED ONCE .ROUTE ; Start 01/27/18 at 13:11; Stop 01/27/18 at 13:12; Status DC Ondansetron HCl (Zofran) 4 mg STK-MED ONCE .ROUTE ; Start 01/27/18 at 13:11; Stop 01/27/18 at 13:12; Status DC Sevoflurane (Ultane) 30 ml STK-MED ONCE IH ; Start 01/27/18 at 13:11; Stop 01/27 at 13:12; Status DC Bacitracin (Bacitracin) 50,000 unit STK-MED ONCE IRR Last administered on at 13:58; Start 01/27/18 at 12:14; Stop 01/27/18 at 13:16; Status DC Clopidogrel Bisulfate (Plavix) 75 mg DAILYWBKFT PO Last administered on at 09:13; Start 01/28/18 at 08:00; Stop 01/28/18 at 14:28; Status DC Hydromorphone HCl (Dilaudid) 2 mg STK-MED ONCE .ROUTE ; Start 01/27/18 at 15:38 ; Stop 01/27/18 at 15:40; Status DC Gentamicin Sulfate 235 mg/ Dextrose 105.875 ml @ 105.875 mls/hr 1X ONCE IV Last administered on 01/27/18at 19:56; Start 01/27/18 at 16:00; Stop 01/27/18 at 16:59; Status DC Lactobacillus Rhamnosus (Culturelle) 1 cap BID PO Last administered on at 10:50; Start 01/27/18 at 21:00 Cefepime HCl 1 gm/ Dextrose 50 ml @ 100 mls/hr DAILY IV ; Start 01/29/18 at 09: 00; Status UNV Metronidazole 100 ml @ 100 mls/hr Q12HR IV Last administered on 02/02/18at 21: 00; Start 01/28/18 at 10:00; Stop 02/03/18 at 10:49; Status DC Cefepime HCl (Maxipime) 1 gm Q24H IVP Last administered on 02/03/18at 10:54; Start 01/28/18 at 10:00 Lidocaine HCl (Xylocaine-Mpf 2% Vial) 2 ml STK-MED ONCE .ROUTE ; Start 01/28/18 at 11:41; Stop 01/28/18 at 11:42; Status DC Sodium Chloride 1,000 ml @ 1,000 mls/hr Q1H PRN IV hypotension; Start 01/28/18 at 12:09; Stop 01/28/18 at 18:08; Status DC Info (PHARMACY MONITORING -- do not chart) 1 each PRN DAILY PRN MC SEE COMMENTS ; Start 01/28/18 at 12:15; Status UNV Info (PHARMACY MONITORING -- do not chart) 1 each PRN DAILY PRN MC SEE COMMENTS ; Start 01/28/18 at 12:15; Stop 01/31/18 at 09:10; Status DC Lidocaine HCl (Xylocaine-Mpf 2% Vial) 2 ml 1X ONCE INJ ; Start 01/28/18 at 12: 15; Stop 01/28/18 at 12:21; Status DC Ticagrelor (Brilinta) 90 mg BID PO Last administered on 02/03/18at 10:50; Start 01/28/18 at 21:00 Diphenhydramine HCl (Benadryl) 25 mg PRN Q6HRS PRN PO ITCHING; Start 01/28/18 at 14:15 Aspirin (Ecotrin) 81 mg DAILYWBKFT PO Last administered on 02/03/18at 10:50; Start 01/29/18 at 08:00 Insulin Human Lispro (HumaLOG) 0-5 UNITS TIDWMEALS SQ Last administered on 02/02at 17:34; Start 01/28/18 at 17:00 Dextrose (Dextrose 50%-Water Syringe) 12.5 gm PRN Q15MIN PRN IV SEE COMMENTS; Start 01/28/18 at 14:45 Hydralazine HCl (Apresoline) 10 mg PRN TID PRN PO hypertension; Start 01/28/18 at 14:45 Oxycodone/ Acetaminophen (Percocet 10/325) 1 tab PRN Q4HRS PRN PO pain SEVERE Last administered on 02/03/18at 10:48; Start 01/29/18 at 07:45 Promethazine HCl (Phenergan Supp) 12.5 mg 1X ONCE MO ; Start 01/29/18 at 12:15 ; Stop 01/29/18 at 12:36; Status DC Promethazine HCl (Phenergan Im) 12.5 mg 1X ONCE IM ; Start 01/29/18 at 12:45; Stop 01/29/18 at 12:46; Status DC Lidocaine/ Epinephrine (LIDOCAINE 1%-EPI 1:100,000 Multi-Dose) 20 ml STK-MED ONCE .ROUTE ; Start 01/29/18 at 12:45; Stop 01/29/18 at 12:47; Status DC Heparin Sodium (Porcine) (Hep Lock Adult) 500 unit STK-MED ONCE IV ; Start 01/29 at 12:45; Stop 01/29/18 at 12:47; Status DC Morphine Sulfate (Morphine Sulfate) 10 mg STK-MED ONCE .ROUTE ; Start 01/29/18 at 13:23; Stop 01/29/18 at 13:25; Status DC Midazolam HCl (Versed) 2 mg STK-MED ONCE .ROUTE ; Start 01/29/18 at 13:23; Stop 01/29/18 at 13:25; Status DC Morphine Sulfate (Morphine Sulfate) 1 mg PRN Q10MIN PRN IV SEVERE PAIN Last administered on 02/01/18at 15:46; Start 02/01/18 at 07:00; Stop 02/02/18 at 06:59 ; Status DC Ringer's Solution 1,000 ml @ 30 mls/hr Q24H IV ; Start 02/01/18 at 07:00; Stop 02/01/18 at 18:59; Status DC Lidocaine HCl (Xylocaine-Mpf 1% 2ml Vial) 2 ml PRN 1X PRN ID PRIOR TO IV START ; Start 02/01/18 at 07:00; Stop 02/02/18 at 06:59; Status DC Hydromorphone HCl (Dilaudid) 0.5 mg PRN Q10MIN PRN IV SEV PAIN, Second choice Last administered on 02/01/18at 16:08; Start 02/01/18 at 07:00; Stop 02/02/18 at 06:59; Status DC Prochlorperazine Edisylate (Compazine) 5 mg PACU PRN PRN IV NAUSEA, MRX1; Start 02/01/18 at 07:00; Stop 02/02/18 at 06:59; Status DC Lidocaine/ Epinephrine (LIDOCAINE 1%-EPI 1:100,000 Multi-Dose) 8 ml 1X ONCE IJ Last administered on 01/29/18at 14:01; Start 01/29/18 at 14:00; Stop 01/29/18 at 14:17; Status DC Heparin Sodium (Porcine) (Hep Lock Adult) 500 unit 1X ONCE IV Last administered on 01/29/18at 14:04; Start 01/29/18 at 14:00; Stop 01/29/18 at 14:17 ; Status DC Morphine Sulfate (Morphine Sulfate) 5 mg 1X ONCE IV Last administered on at 14:01; Start 01/29/18 at 14:00; Stop 01/29/18 at 14:17; Status DC Ondansetron HCl (Zofran) 4 mg PRN Q6HRS PRN IV NAUSEA/VOMITING 1ST CHOICE Last administered on 02/02/18at 09:51; Start 01/29/18 at 14:45 Vancomycin HCl 500 mg/Sodium Chloride 100 ml @ 100 mls/hr 1X ONCE IV Last administered on 01/29/18at 21:04; Start 01/29/18 at 18:00; Stop 01/29/18 at 18:59 ; Status DC Sodium Chloride 1,000 ml @ 1,000 mls/hr Q1H PRN IV hypotension; Start 01/30/18 at 13:09; Stop 01/30/18 at 19:08; Status DC Sodium Chloride (Normal Saline Flush) 10 ml 1X PRN PRN IV AP catheter pack; Start 01/30/18 at 13:15; Stop 01/31/18 at 13:14; Status DC Sodium Chloride (Normal Saline Flush) 10 ml 1X PRN PRN IV WET END TESTER catheter pack; Start 01/30/18 at 13:15; Stop 01/31/18 at 13:14; Status DC Sodium Chloride 1,000 ml @ 400 mls/hr Q2H30M PRN IV PATENCY; Start 01/30/18 at 13:09; Stop 01/31/18 at 01:08; Status DC Info (PHARMACY MONITORING -- do not chart) 1 each PRN DAILY PRN MC SEE COMMENTS ; Start 01/30/18 at 13:15; Stop 01/30/18 at 13:17; Status DC Info (PHARMACY MONITORING -- do not chart) 1 each PRN DAILY PRN MC SEE COMMENTS ; Start 01/30/18 at 13:15 Lidocaine HCl (Lidocaine 1% 50ml Vial) 50 ml 1X ONCE INJ ; Start 01/30/18 at 15 :45; Stop 01/30/18 at 15:46; Status DC Vancomycin HCl 500 mg/Sodium Chloride 100 ml @ 100 mls/hr ONCE ONCE IV Last administered on 01/30/18at 20:49; Start 01/30/18 at 18:00; Stop 01/30/18 at 18:59 ; Status DC Cefazolin Sodium 1 gm/Sodium Chloride 500 ml @ 500 mls/hr 1X ONCE IRR ; Start 02/01/18 at 06:00; Stop 02/01/18 at 06:59; Status DC Lidocaine HCl (Xylocaine-Mpf 2% Vial) 2 ml STK-MED ONCE .ROUTE ; Start 01/28/18 at 12:00; Stop 02/01/18 at 08:30; Status DC Darbepoetin Mauricio (Aranesp) 60 mcg [id number] SQ Last administered on 02/01/18at 21 :38; Start 02/01/18 at 21:00 Cellulose (Surgicel Fibrillar 1x2) 1 each STK-MED ONCE .ROUTE ; Start 02/01/18 at 12:05; Stop 02/01/18 at 13:06; Status DC Lidocaine HCl (Xylocaine 1% Pf 30ml Vial) 30 ml 1X ONCE INJ ; Start 02/01/18 at 13:15; Stop 02/01/18 at 13:18; Status DC Sodium Chloride 1,000 ml @ 75 mls/hr [id number] IV Last administered on at 00:15; Start 02/01/18 at 13:45; Stop 02/02/18 at 16:43; Status DC Morphine Sulfate (Morphine Sulfate) 10 mg STK-MED ONCE .ROUTE ; Start 02/01/18 at 14:24; Stop 02/01/18 at 14:25; Status DC Midazolam HCl (Versed) 2 mg STK-MED ONCE .ROUTE ; Start 02/01/18 at 14:24; Stop 02/01/18 at 14:25; Status DC Midazolam HCl (Versed) 2 mg STK-MED ONCE .ROUTE ; Start 02/01/18 at 14:25; Stop 02/01/18 at 14:26; Status DC Propofol 20 ml @ As Directed STK-MED ONCE IV ; Start 02/01/18 at 14:25; Stop at 14:26; Status DC Dexamethasone Sodium Phosphate (Decadron) 20 mg STK-MED ONCE .ROUTE ; Start 02/01/18 at 14:25; Stop 02/01/18 at 14:26; Status DC Ondansetron HCl (Zofran) 4 mg STK-MED ONCE .ROUTE ; Start 02/01/18 at 14:25; Stop 02/01/18 at 14:26; Status DC Bacitracin (Bacitracin) 50,000 unit STK-MED ONCE IRR Last administered on at 14:55; Start 02/01/18 at 13:32; Stop 02/01/18 at 14:32; Status DC Vancomycin HCl 500 mg/Sodium Chloride 100 ml @ 100 mls/hr QTUTHSA IV Last administered on 02/02/18at 16:15; Start 02/02/18 at 16:00 Sodium Chloride 1,000 ml @ 1,000 mls/hr Q1H PRN IV hypotension; Start 02/02/18 at 09:39; Stop 02/02/18 at 15:38; Status DC Albumin Human 200 ml @ 200 mls/hr 1X PRN PRN IV Hypotension; Start 02/02/18 at 09:45; Stop 02/02/18 at 15:44; Status DC Sodium Chloride 1,000 ml @ 400 mls/hr Q2H30M PRN IV PATENCY; Start 02/02/18 at 09:39; Stop 02/02/18 at 21:38; Status DC Info (PHARMACY MONITORING -- do not chart) 1 each PRN DAILY PRN MC SEE COMMENTS ; Start 02/02/18 at 09:45 Info (PHARMACY MONITORING -- do not chart) 1 each PRN DAILY PRN MC SEE COMMENTS ; Start 02/02/18 at 09:45; Status UNV Prochlorperazine Edisylate (Compazine) 10 mg PRN Q6HRS PRN IV NAUSEA/VOMITING 2ND CHOICE Last administered on 02/02/18at 23:23; Start 02/02/18 at 11:30 Vancomycin HCl (Vanco Per Pharmacy) 1 each PRN DAILY PRN MC SEE COMMENTS Last administered on 02/02/18at 13:57; Start 02/02/18 at 14:00 Famotidine (Pepcid Vial) 20 mg DAILY IVP Last administered on 02/03/18at 10:48 ; Start 02/03/18 at 10:00 Active Scripts Active Percocet 10-325 Mg Tablet (Oxycodone/Acetaminophen) 1 Each Tablet 1 Tab PO Q4HRS Brilinta (Ticagrelor) 90 Mg Tablet 90 Mg PO BID 30 Days Morphine Sulfate Er (Morphine Sulfate) 15 Mg Tablet.er 15 Mg PO BID Reported Brilinta (Ticagrelor) 90 Mg Tablet 90 Mg PO BID Lidocaine 1 Each Adh..patch 1 Each TP PRN DAILY PRN Calcitriol 0.25 Mcg Capsule 1 Cap PO DAILY Tegretol (Carbamazepine) 200 Mg Tablet 1 Tab PO BID Tramadol Hcl 50 Mg Tablet 50 Mg PO Q4HRS PRN Lantus Solostar (Insulin Glargine,Hum.rec.anlog) 100 Unit/1 Ml Insuln.pen 22 Unit SQ QHS Diflucan (Fluconazole) 100 Mg Tablet 100 Mg PO PRN Carvedilol 3.125 Mg Tablet 12.5 Mg PO BID Erythromycin (Erythromycin Base) 250 Mg Capsule.dr 250 Mg PO BID Cardizem Cd (Diltiazem Hcl) 180 Mg Cap.er.24h 120 Mg PO DAILY Amiodarone Hcl 200 Mg Tablet 1 Tab PO DAILY Nystatin 15 Gm Powder 1 Susanna TP PRN BID PRN Proventil Hfa Inhaler (Albuterol Sulfate) 6.7 Gm Hfa.aer.ad 2 Puff IH BID PRN Zofran (Ondansetron Hcl) 4 Mg Tablet 4 Mg PO Q6-8HRS PRN Nephro-Shabbir Tablet (Folic Acid/Vitamin B Comp W-C) 0.8 Mg Tablet 1 Tab PO DAILY Tricor (Fenofibrate Nanocrystallized) 145 Mg Tablet 1 Tab PO HS Lipitor (Atorvastatin Calcium) 80 Mg Tablet 80 Mg PO HS Niacin 500 Mg Tablet 500 Mg PO HS Novolog (Insulin Aspart) 100 Unit/1 Ml Cartridge 0 SQ TIDAC sliding scale Aspirin 325 Mg Tablet 325 Mg PO DAILY Furosemide 80 Mg Tablet 80 Mg PO BID Docusate Sodium 100 Mg Capsule 1 Cap PO PRN PRN Nitrostat (Nitroglycerin) 0.4 Mg Tab.subl 0.4 Mg SL PRN Q5MIN PRN Take as needed for chest pain Vitals/I & O Vital Sign - Last 24 Hours 02/02/18 02/02/18 02/02/18 02/02/18 15:00 16:18 17:31 19:00 Temp 98.1 98.1 98.1 98.1 Pulse 77 77 78 Resp 12 16 B/P (MAP) 143/53 (83) 143/53 142/63 (89) Pulse Ox 100 96 O2 Delivery Room Air Room Air Room Air 02/02/18 02/02/18 02/02/18 02/02/18 20:00 20:59 21:01 23:00 Temp 99.2 99.2 Pulse 79 Resp 18 B/P (MAP) 132/56 (81) Pulse Ox 96 96 99 O2 Delivery Nasal Cannula Nasal Cannula Nasal Cannula Room Air O2 Flow Rate 3.0 3.0 3.0 02/03/18 02/03/18 02/03/18 02/03/18 01:29 03:00 07:00 08:53 Temp 99.5 97.7 99.5 97.7 Pulse 76 74 Resp 18 18 B/P (MAP) 139/63 (88) 154/63 (93) Pulse Ox 99 96 100 O2 Delivery Nasal Cannula Room Air Room Air Nasal Cannula O2 Flow Rate 3.0 2.0 02/03/18 02/03/18 02/03/18 02/03/18 10:48 10:49 10:49 10:50 Pulse 74 74 B/P (MAP) 154/63 154/63 O2 Delivery Room Air Room Air 02/03/18 02/03/18 02/03/18 02/03/18 10:51 10:52 11:00 12:28 Temp 97.7 97.7 Pulse 74 86 Resp 18 B/P (MAP) 154/63 160/61 (94) Pulse Ox 100 O2 Delivery Room Air Room Air Room Air 02/03/18 12:30 O2 Delivery Room Air Intake and Output 02/02/18 02/02/18 02/03/18 15:00 23:00 07:00 Intake Total 500 ml 600 ml Output Total 500 ml Balance 500 ml 100 ml PAPITO REZA III DO Feb 03, 2018 13:09
[2018-02-03 15:00] VITALS: BP 165/54
[2018-02-03 19:00] VITALS: BP 132/59
[2018-02-03] MEDS: NIACIN ER 500 MG TABLET.ER PO SCH (20:50)
[2018-02-03] MEDS: ATORVASTATIN CALCIUM 40 MG TABLET. PO SCH (20:50)
[2018-02-03] MEDS: FENOFIBRATE,MICRONIZED 134 MG CAPSULE PO SCH (20:51)
[2018-02-03] MEDS: PATCH REMOVAL. MC SCH (20:52)
[2018-02-03] MEDS: INSULIN GLARGINE 300 UNITS/3 ML INSULN.PEN. SQ SCH (21:01)
[2018-02-03 23:00] VITALS: BP 163/60
[2018-02-04] MEDS: HYDROmorphone 2 MG/ML VIAL IV PRN ×5 (01:23→18:12)
[2018-02-04 03:00] VITALS: BP 158/49
[2018-02-04] MEDS ORDERED: ALTEPLASE 2 MG VIAL INT CAT ONE (03:00)
[2018-02-04 05:08] LABS: BASO # 0.1 x10^3/uL (0.0-0.2); BASO % 1 % (0-3); EOS # 0.1 x10^3/uL (0.0-0.7); EOS % 1 % (0-3); HEMATOCRIT 22.5 % (36.0-47.0); HEMOGLOBIN 7.4 g/dL (12.0-15.5); LYMPH # 1.7 x10^3/uL (1.0-4.8); LYMPH % 11 % (24-48); MEAN CORPUSCULAR HEMOGLOBIN 32 pg (25-35); MEAN CORPUSCULAR HGB CONC 33 g/dL (31-37); MEAN CORPUSCULAR VOLUME 96 fL (79-100); MONO % 6 % (0-9); NEUT # 13.4 x10^3uL (1.8-7.7); NEUT % 82 % (31-73); PLATELET COUNT 347 x10^3/uL (140-400); RED BLOOD COUNT 2.34 x10^6/uL (3.50-5.40); RED CELL DISTRIBUTION WIDTH 17.2 % (11.5-14.5); WHITE BLOOD COUNT 16.3 x10^3/uL (4.0-11.0)
[2018-02-04 06:04] LABS: ALBUMIN 1.7 g/dL (3.4-5.0); ALBUMIN/GLOBULIN RATIO 0.5 (1.0-1.7); CALCIUM 7.9 mg/dL (8.5-10.1); CREATININE 4.8 mg/dL (0.6-1.0); GFR 9.5; POTASSIUM 4.8 mmol/L (3.5-5.1); TOTAL BILIRUBIN 0.3 mg/dL (0.2-1.0); TOTAL PROTEIN 4.9 g/dL (6.4-8.2)
[2018-02-04 07:15] VITALS: BP 119/45
[2018-02-04] MEDS ORDERED: DIALYSIS PATIENT. MC PRN (07:15)
[2018-02-04] MEDS ORDERED: IV NORMAL SALINE 1000ML BAG 1,000 ML IV PRN ×2 (07:15)
[2018-02-04] MEDS ORDERED: ACETAMINOPHEN 500 MG TABLET PO PRN (07:15)
[2018-02-04] MEDS ORDERED: diphenhydrAMINE 50 MG/ML VIAL IV PRN ×2 (07:15)
[2018-02-04] MEDS ORDERED: ALBUMIN HUMAN 25% 200 ML IV PRN (07:15)
[2018-02-04] MEDS: ASPIRIN ENTERIC COATED 81 MG TABLET.DR. PO SCH (08:00)
[2018-02-04] MEDS: MORPHINE ER 15 MG TABLET.ER PO SCH ×2 (08:35→22:01)
[2018-02-04] MEDS: INSULIN LISPRO 300 UNITS/3 ML INSULN.PEN. SQ SCH ×3 (08:47→17:00)
--- NOTE | 2018-02-04 09:02 | PDOC ---
Subjective: Subjective: Nausea w/o vomiting. No bleeding. NPO for dialysis today. If she is to have an EGD, she would prefer this tomorrow because her mouth is dry. Objective: Objective: Hgb 7.9 to 7.4. Vital Signs: Vital Signs Date Time Temp Pulse Resp B/P (MAP) Pulse Ox O2 Delivery O2 Flow Rate FiO2 02/04/18 08:35 Room Air 02/04/18 07:15 97.3 76 18 119/45 (69) 99 97.3 02/04/18 03:40 3.0 Labs: Laboratory Tests Test 02/03/18 10:43 02/03/18 17:51 02/03/18 20:18 02/04/18 03:35 Glucose (Fingerstick) 121 mg/dL 155 mg/dL 164 mg/dL White Blood Count 16.3 x10^3/uL Red Blood Count 2.34 x10^6/uL Hemoglobin 7.4 g/dL Hematocrit 22.5 % Mean Corpuscular Volume 96 fL Mean Corpuscular Hemoglobin 32 pg Mean Corpuscular Hemoglobin Concent 33 g/dL Red Cell Distribution Width 17.2 % Platelet Count 347 x10^3/uL Neutrophils (%) (Auto) 82 % Lymphocytes (%) (Auto) 11 % Monocytes (%) (Auto) 6 % Eosinophils (%) (Auto) 1 % Basophils (%) (Auto) 1 % Neutrophils # (Auto) 13.4 x10^3uL Lymphocytes # (Auto) 1.7 x10^3/uL Monocytes # (Auto) 1.0 x10^3/uL Eosinophils # (Auto) 0.1 x10^3/uL Basophils # (Auto) 0.1 x10^3/uL Sodium Level 139 mmol/L Potassium Level 4.8 mmol/L Chloride Level 101 mmol/L Carbon Dioxide Level 26 mmol/L Anion Gap 12 Blood Urea Nitrogen 56 mg/dL Creatinine 4.8 mg/dL Estimated GFR (Cockcroft-Gault) 9.5 BUN/Creatinine Ratio 12 Glucose Level 328 mg/dL Calcium Level 7.9 mg/dL Total Bilirubin 0.3 mg/dL Aspartate Amino Transf (AST/SGOT) 12 U/L Alanine Aminotransferase (ALT/SGPT) 10 U/L Alkaline Phosphatase 119 U/L Total Protein 4.9 g/dL Albumin 1.7 g/dL Albumin/Globulin Ratio 0.5 Test 02/04/18 07:45 Glucose (Fingerstick) 343 mg/dL PE: GEN: NAD LUNGS: CTAB HEART: RRR ABD: BS+, soft, non-tender EXTREMITY/SKIN: RLE erythema/wound NEURO/PSYCH: A & O 3, a bit drowsy A/P: S/p RLE debridement Coffee-ground emesis - no recurrence Chronic nausea, gastroparesis, GERD -on e-mycin, added H2 bulmaro yesterday Chronic anemia - basically stable (7.9 to 7.4) -ESRD, CAD, PAD, DM - on ASA and Brilinta -?previous colonoscopy -- Plan for EGD tomorrow a.m. Continue IV H2 bulmaro for now. EDDY IGLESIAS Feb 04, 2018 09:02
[2018-02-04] MEDS ORDERED: LIDOCAINE 2% PF 2ML VIAL. ONE ×2 (09:43→10:00)
--- NOTE | 2018-02-04 09:49 | PDOC ---
PROGRESS NOTES Chief Complaint Chief Complaint Recent fempop Right groin wound infection Sepsis from Right LE cellulitis ESRD on PD and HD Left BKA History of Present Illness History of Present Illness Pt seen and examine Dw RN Vision changes NAD Wounds dry, clean, intact Vitals Vitals Vital Signs Date Time Temp Pulse Resp B/P (MAP) Pulse Ox O2 Delivery O2 Flow Rate FiO2 02/04/18 09:15 Nasal Cannula 2.0 02/04/18 07:15 97.3 76 18 119/45 (69) 99 97.3 Physical Exam Physical Exam GENERAL: Propped up in bed, alert, in NAD HEENT: Oral cavity clear NECK: Supple LUNGS: Clear. HEART: S1, S2 regular. ABDOMEN: Soft, NT EXTREMITIES: Left BKA. RLE edema with wound vac in place . NEUROLOGIC: Alert and responds appropriately Tunnelled RIJ (01/29) General: Alert, Oriented X3, Cooperative, No acute distress Heart: Regular rate, Normal S1, Normal S2 Lungs: Clear, Wheezing Abdomen: Normal bowel sounds, Soft, No tenderness, Other (PD cath clean dry and intact) Extremities: No clubbing, Other (RLE red along staple line with swollen red foot and right groin open wound, foul smelling. LLE BKA clean. RUE fistula with good bruit) Skin: No breakdown, Other (dehiscence of the proximal right common femoral incision and vein harvest site with lower extremity edema and mild cellulitis) Labs LABS Laboratory Tests Test 02/03/18 10:43 02/03/18 17:51 02/03/18 20:18 02/04/18 03:35 Glucose (Fingerstick) 121 mg/dL (70-99) 155 mg/dL (70-99) 164 mg/dL (70-99) White Blood Count 16.3 x10^3/uL (4.0-11.0) Red Blood Count 2.34 x10^6/uL (3.50-5.40) Hemoglobin 7.4 g/dL (12.0-15.5) Hematocrit 22.5 % (36.0-47.0) Mean Corpuscular Volume 96 fL (79-100) Mean Corpuscular Hemoglobin 32 pg (25-35) Mean Corpuscular Hemoglobin Concent 33 g/dL (31-37) Red Cell Distribution Width 17.2 % (11.5-14.5) Platelet Count 347 x10^3/uL (140-400) Neutrophils (%) (Auto) 82 % (31-73) Lymphocytes (%) (Auto) 11 % (24-48) Monocytes (%) (Auto) 6 % (0-9) Eosinophils (%) (Auto) 1 % (0-3) Basophils (%) (Auto) 1 % (0-3) Neutrophils # (Auto) 13.4 x10^3uL (1.8-7.7) Lymphocytes # (Auto) 1.7 x10^3/uL (1.0-4.8) Monocytes # (Auto) 1.0 x10^3/uL (0.0-1.1) Eosinophils # (Auto) 0.1 x10^3/uL (0.0-0.7) Basophils # (Auto) 0.1 x10^3/uL (0.0-0.2) Sodium Level 139 mmol/L (136-145) Potassium Level 4.8 mmol/L (3.5-5.1) Chloride Level 101 mmol/L (98-107) Carbon Dioxide Level 26 mmol/L (21-32) Anion Gap 12 (6-14) Blood Urea Nitrogen 56 mg/dL (7-20) Creatinine 4.8 mg/dL (0.6-1.0) Estimated GFR (Cockcroft-Gault) 9.5 BUN/Creatinine Ratio 12 (6-20) Glucose Level 328 mg/dL (70-99) Calcium Level 7.9 mg/dL (8.5-10.1) Total Bilirubin 0.3 mg/dL (0.2-1.0) Aspartate Amino Transf (AST/SGOT) 12 U/L (15-37) Alanine Aminotransferase (ALT/SGPT) 10 U/L (14-59) Alkaline Phosphatase 119 U/L (46-116) Total Protein 4.9 g/dL (6.4-8.2) Albumin 1.7 g/dL (3.4-5.0) Albumin/Globulin Ratio 0.5 (1.0-1.7) Test 02/04/18 07:45 Glucose (Fingerstick) 343 mg/dL (70-99) Review of Systems Review of Systems General pain Vision loss Assessment and Plan Assessmemt and Plan Assessment: Recent fempop Right groin wound infection Sepsis from Right LE cellulitis ESRD on PD and HD Left BKA Plan: Consult neuro HD Labs IV antibiotics Wound care Comment Review of Relevant I have reviewed the following items bert (where applicable) has been applied. Labs Laboratory Tests Test 02/02/18 16:57 02/02/18 20:44 02/03/18 04:25 02/03/18 07:37 Glucose (Fingerstick) 224 mg/dL (70-99) 187 mg/dL (70-99) 140 mg/dL (70-99) White Blood Count 15.1 x10^3/uL (4.0-11.0) Red Blood Count 2.55 x10^6/uL (3.50-5.40) Hemoglobin 7.9 g/dL (12.0-15.5) Hematocrit 24.0 % (36.0-47.0) Mean Corpuscular Volume 94 fL (79-100) Mean Corpuscular Hemoglobin 31 pg (25-35) Mean Corpuscular Hemoglobin Concent 33 g/dL (31-37) Red Cell Distribution Width 17.5 % (11.5-14.5) Platelet Count 368 x10^3/uL (140-400) Neutrophils (%) (Auto) 84 % (31-73) Lymphocytes (%) (Auto) 9 % (24-48) Monocytes (%) (Auto) 6 % (0-9) Eosinophils (%) (Auto) 0 % (0-3) Basophils (%) (Auto) 0 % (0-3) Neutrophils # (Auto) 12.7 x10^3uL (1.8-7.7) Lymphocytes # (Auto) 1.4 x10^3/uL (1.0-4.8) Monocytes # (Auto) 0.9 x10^3/uL (0.0-1.1) Eosinophils # (Auto) 0.0 x10^3/uL (0.0-0.7) Basophils # (Auto) 0.0 x10^3/uL (0.0-0.2) Sodium Level 146 mmol/L (136-145) Potassium Level 4.3 mmol/L (3.5-5.1) Chloride Level 103 mmol/L (98-107) Carbon Dioxide Level 34 mmol/L (21-32) Anion Gap 9 (6-14) Blood Urea Nitrogen 39 mg/dL (7-20) Creatinine 3.9 mg/dL (0.6-1.0) Estimated GFR (Cockcroft-Gault) 12.1 Glucose Level 179 mg/dL (70-99) Calcium Level 8.1 mg/dL (8.5-10.1) Phosphorus Level 4.5 mg/dL (2.6-4.7) Albumin 1.5 g/dL (3.4-5.0) Test 02/03/18 10:43 02/03/18 17:51 02/03/18 20:18 02/04/18 03:35 Glucose (Fingerstick) 121 mg/dL (70-99) 155 mg/dL (70-99) 164 mg/dL (70-99) White Blood Count 16.3 x10^3/uL (4.0-11.0) Red Blood Count 2.34 x10^6/uL (3.50-5.40) Hemoglobin 7.4 g/dL (12.0-15.5) Hematocrit 22.5 % (36.0-47.0) Mean Corpuscular Volume 96 fL (79-100) Mean Corpuscular Hemoglobin 32 pg (25-35) Mean Corpuscular Hemoglobin Concent 33 g/dL (31-37) Red Cell Distribution Width 17.2 % (11.5-14.5) Platelet Count 347 x10^3/uL (140-400) Neutrophils (%) (Auto) 82 % (31-73) Lymphocytes (%) (Auto) 11 % (24-48) Monocytes (%) (Auto) 6 % (0-9) Eosinophils (%) (Auto) 1 % (0-3) Basophils (%) (Auto) 1 % (0-3) Neutrophils # (Auto) 13.4 x10^3uL (1.8-7.7) Lymphocytes # (Auto) 1.7 x10^3/uL (1.0-4.8) Monocytes # (Auto) 1.0 x10^3/uL (0.0-1.1) Eosinophils # (Auto) 0.1 x10^3/uL (0.0-0.7) Basophils # (Auto) 0.1 x10^3/uL (0.0-0.2) Sodium Level 139 mmol/L (136-145) Potassium Level 4.8 mmol/L (3.5-5.1) Chloride Level 101 mmol/L (98-107) Carbon Dioxide Level 26 mmol/L (21-32) Anion Gap 12 (6-14) Blood Urea Nitrogen 56 mg/dL (7-20) Creatinine 4.8 mg/dL (0.6-1.0) Estimated GFR (Cockcroft-Gault) 9.5 BUN/Creatinine Ratio 12 (6-20) Glucose Level 328 mg/dL (70-99) Calcium Level 7.9 mg/dL (8.5-10.1) Total Bilirubin 0.3 mg/dL (0.2-1.0) Aspartate Amino Transf (AST/SGOT) 12 U/L (15-37) Alanine Aminotransferase (ALT/SGPT) 10 U/L (14-59) Alkaline Phosphatase 119 U/L (46-116) Total Protein 4.9 g/dL (6.4-8.2) Albumin 1.7 g/dL (3.4-5.0) Albumin/Globulin Ratio 0.5 (1.0-1.7) Test 02/04/18 07:45 Glucose (Fingerstick) 343 mg/dL (70-99) Laboratory Tests Test 02/03/18 10:43 02/03/18 17:51 02/03/18 20:18 02/04/18 03:35 Glucose (Fingerstick) 121 mg/dL (70-99) 155 mg/dL (70-99) 164 mg/dL (70-99) White Blood Count 16.3 x10^3/uL (4.0-11.0) Red Blood Count 2.34 x10^6/uL (3.50-5.40) Hemoglobin 7.4 g/dL (12.0-15.5) Hematocrit 22.5 % (36.0-47.0) Mean Corpuscular Volume 96 fL (79-100) Mean Corpuscular Hemoglobin 32 pg (25-35) Mean Corpuscular Hemoglobin Concent 33 g/dL (31-37) Red Cell Distribution Width 17.2 % (11.5-14.5) Platelet Count 347 x10^3/uL (140-400) Neutrophils (%) (Auto) 82 % (31-73) Lymphocytes (%) (Auto) 11 % (24-48) Monocytes (%) (Auto) 6 % (0-9) Eosinophils (%) (Auto) 1 % (0-3) Basophils (%) (Auto) 1 % (0-3) Neutrophils # (Auto) 13.4 x10^3uL (1.8-7.7) Lymphocytes # (Auto) 1.7 x10^3/uL (1.0-4.8) Monocytes # (Auto) 1.0 x10^3/uL (0.0-1.1) Eosinophils # (Auto) 0.1 x10^3/uL (0.0-0.7) Basophils # (Auto) 0.1 x10^3/uL (0.0-0.2) Sodium Level 139 mmol/L (136-145) Potassium Level 4.8 mmol/L (3.5-5.1) Chloride Level 101 mmol/L (98-107) Carbon Dioxide Level 26 mmol/L (21-32) Anion Gap 12 (6-14) Blood Urea Nitrogen 56 mg/dL (7-20) Creatinine 4.8 mg/dL (0.6-1.0) Estimated GFR (Cockcroft-Gault) 9.5 BUN/Creatinine Ratio 12 (6-20) Glucose Level 328 mg/dL (70-99) Calcium Level 7.9 mg/dL (8.5-10.1) Total Bilirubin 0.3 mg/dL (0.2-1.0) Aspartate Amino Transf (AST/SGOT) 12 U/L (15-37) Alanine Aminotransferase (ALT/SGPT) 10 U/L (14-59) Alkaline Phosphatase 119 U/L (46-116) Total Protein 4.9 g/dL (6.4-8.2) Albumin 1.7 g/dL (3.4-5.0) Albumin/Globulin Ratio 0.5 (1.0-1.7) Test 02/04/18 07:45 Glucose (Fingerstick) 343 mg/dL (70-99) Microbiology 01/26/18 Blood Culture - Final, Complete NO GROWTH AFTER 5 DAYS 01/27/18 Anaerobic/Aerobic Culture - Final, Complete 01/27/18 Anaerobic Culture Result 1 (ROSALIND) - Final, Complete 01/27/18 Aerobic Culture - Final, Complete 01/27/18 Aerobic Culture Result 1 (ROSALIND) - Final, Complete 01/27/18 Antimicrobic Susceptibility - Final, Complete 01/27/18 Gram Stain - Final, Complete 01/27/18 Gram Stain Result 1 (ROSALIND) - Final, Complete 01/27/18 Gram Stain Result 2 (ROSALIND) - Final, Complete Medications Current Medications Hydromorphone HCl (Dilaudid) 2 mg 1X ONCE IV Last administered on 01/26/18at 22 :39; Start 01/26/18 at 22:00; Stop 01/26/18 at 22:01; Status DC Vancomycin HCl (Vanco Per Pharmacy) 1 each PRN DAILY PRN MC SEE COMMENTS Last administered on 01/31/18at 17:20; Start 01/26/18 at 22:45; Stop 02/01/18 at 11:41 ; Status DC Vancomycin HCl 1.75 gm/Sodium Chloride 500 ml @ 250 mls/hr 1X ONCE IV Last administered on 01/26/18at 23:53; Start 01/26/18 at 23:00; Stop 01/27/18 at 00:59 ; Status DC Ondansetron HCl (Zofran) 4 mg PRN Q8HRS PRN IV NAUSEA/VOMITING 1ST CHOICE; Start 01/26/18 at 23:15; Stop 01/27/18 at 23:14; Status DC Sodium Chloride 1,000 ml @ 75 mls/hr [id number] IV Last administered on at 00:39; Start 01/26/18 at 23:30; Stop 01/27/18 at 23:29; Status DC Pharmacy Consult (C.diff Med Screen By Rx) 1 each 1X ONCE MC ; Start 01/27/18 at 01:00; Stop 01/27/18 at 01:01; Status Cancel Influenza Virus Vaccine (Afluria Trivalent [id number] Syringe) 0.5 ml ONCE ONCE VAX IM Last administered on 01/27/18at 09:00; Start 01/27/18 at 09:00; Stop 01/27/18 at 09:01; Status DC Vancomycin HCl (Vancomycin Random Level) 1 each 1X ONCE MC Last administered on 01/28/18at 05:00; Start 01/28/18 at 05:00; Stop 01/28/18 at 05:01; Status DC Hydromorphone HCl (Dilaudid) 1 mg PRN Q3HRS PRN IV SEVERE PAIN Last administered on 02/04/18at 09:15; Start 01/27/18 at 03:30 Ondansetron HCl (Zofran) 4 mg PRN Q6HRS PRN IV NAUSEA/VOMITING; Start 01/27/18 at 10:45; Stop 01/27/18 at 18:00; Status DC Fentanyl Citrate (Fentanyl 2ml Vial) 25 mcg PRN Q5MIN PRN IV MILD PAIN; Start 01/27/18 at 10:45; Stop 01/27/18 at 18:00; Status DC Fentanyl Citrate (Fentanyl 2ml Vial) 50 mcg PRN Q5MIN PRN IV MODERATE TO SEVERE PAIN; Start 01/27/18 at 10:45; Stop 01/27/18 at 18:00; Status DC Morphine Sulfate (Morphine Sulfate) 1 mg PRN Q10MIN PRN IV SEVERE PAIN Last administered on 01/27/18at 16:28; Start 01/27/18 at 10:45; Stop 01/27/18 at 18:00 ; Status DC Ringer's Solution 1,000 ml @ 30 mls/hr Q24H IV Last administered on 01/27/18at 10:35; Start 01/27/18 at 10:35; Stop 01/27/18 at 19:36; Status DC Lidocaine HCl (Xylocaine-Mpf 1% 2ml Vial) 2 ml 1X PRN PRN ID IV START; Start 01/27/18 at 10:45; Stop 01/27/18 at 18:00; Status DC Hydromorphone HCl (Dilaudid) 0.5 mg PRN Q10MIN PRN IV SEV PAIN, Second choice Last administered on 01/27/18at 15:59; Start 01/27/18 at 10:45; Stop 01/27/18 at 18:00; Status DC Prochlorperazine Edisylate (Compazine) 5 mg PACU PRN PRN IV NAUSEA, MRX1; Start 01/27/18 at 10:45; Stop 01/27/18 at 18:00; Status DC Amiodarone HCl (Cordarone) 200 mg DAILY PO Last administered on 02/03/18at 10: 49; Start 01/27/18 at 12:30 Aspirin (Anthony Aspirin) 325 mg DAILY PO Last administered on 01/28/18 09:13; Start 01/27/18 at 12:30; Stop 01/28/18 at 14:26; Status DC Carbamazepine (TEGretol) 200 mg BID PO Last administered on 02/03/18 20:50; Start 01/27/18 at 12:30 Carvedilol (Coreg) 12.5 mg BIDWMEALS PO Last administered on 02/03/18 18:05; Start 01/27/18 at 12:30 Vitamin B Complex/ Vitamin C (Melly-Shabbir) 1 tab DAILY PO Last administered on 10:49; Start 01/27/18 at 12:30 Furosemide (Lasix) 80 mg [id number] PO Last administered on 02/03/18 10:52; Start 01/27/18 at 12:30 Insulin Glargine (Lantus) 22 units QHS SQ Last administered on 02/03/18 21:01 ; Start 01/27/18 at 21:00 Morphine Sulfate (Ms Contin) 15 mg BID PO Last administered on 02/04/18 08:35 ; Start 01/27/18 at 12:30 Nitroglycerin (Nitrostat) 0.4 mg PRN Q5MIN PRN SL CHEST PAIN; Start 01/27/18 at 12:00 Nystatin (Nystop) 1 susanna PRN BID PRN TP SKIN BREAKDOWN; Start 01/27/18 at 12:00 Tramadol HCl (Ultram) 50 mg PRN Q4HRS PRN PO HEADACHE; Start 01/27/18 at 12:00 Non-Formulary Medication (Albuterol Sulfate (Proventil Hfa Inhaler)) 2 puff BID PRN IH FOR ASTHMA; Start 01/27/18 at 12:00; Status UNV Atorvastatin Calcium (Lipitor) 80 mg QHS PO Last administered on 02/03/18 20: 50; Start 01/27/18 at 21:00 Calcitriol (Rocaltrol) 0.25 mcg DAILY PO Last administered on 02/03/18 10:50 ; Start 01/27/18 at 12:30 Diltiazem HCl (Cardizem 24hr Cd) 120 mg DAILY PO Last administered on 10/10/ 18at 10:51; Start 01/27/18 at 12:30 Erythromycin (E-Mycin) 250 mg BID PO Last administered on 02/03/18at 20:49; Start 01/27/18 at 21:00 Fenofibrate (Lofibra) 134 mg QHS PO Last administered on 02/03/18at 20:51; Start 01/27/18 at 21:00 Non-Formulary Medication (Fluconazole (Diflucan)) 100 mg PRN PO ; Start at 12:00; Status UNV Lidocaine (Lidoderm) 1 patch PRN DAILY PRN TD PAIN; Start 01/27/18 at 09:00 Niacin (Slo-Niacin) 500 mg QHS PO Last administered on 02/03/18at 20:50; Start 01/27/18 at 21:00 Ondansetron HCl (Zofran Odt) 4 mg PRN Q6HRS PRN PO NAUSEA/VOMITING; Start 01/27 at 12:15 Miscellaneous (Lidoderm Patch Removal) 1 ea QHS MC Last administered on at 21:00; Start 01/27/18 at 21:00 Albuterol Sulfate (Ventolin Neb Soln) 2.5 mg PRN BID PRN NEB SHORTNESS OF BREATH Last administered on 01/27/18at 21:59; Start 01/27/18 at 12:30 Lidocaine HCl (Lidocaine 1% 50ml Vial) 50 ml 1X ONCE INJ Last administered on 01/27/18at 14:06; Start 01/27/18 at 12:45; Stop 01/27/18 at 12:46; Status DC Hydromorphone HCl (Dilaudid) 2 mg STK-MED ONCE .ROUTE ; Start 01/27/18 at 12:36 ; Stop 01/27/18 at 12:38; Status DC Propofol 20 ml @ As Directed STK-MED ONCE IV ; Start 01/27/18 at 12:38; Stop at 12:39; Status DC Bacitracin [id number] unit/Sodium Chloride 3,000 ml @ 0 mls/hr 1X ONCE IR ; Start 01/27/18 at 13:15; Stop 01/27/18 at 13:16; Status Cancel Dexamethasone Sodium Phosphate (Decadron) 20 mg STK-MED ONCE .ROUTE ; Start 01/27/18 at 13:11; Stop 01/27/18 at 13:12; Status DC Ondansetron HCl (Zofran) 4 mg STK-MED ONCE .ROUTE ; Start 01/27/18 at 13:11; Stop 01/27/18 at 13:12; Status DC Sevoflurane (Ultane) 30 ml STK-MED ONCE IH ; Start 01/27/18 at 13:11; Stop 01/27 at 13:12; Status DC Bacitracin (Bacitracin) 50,000 unit STK-MED ONCE IRR Last administered on at 13:58; Start 01/27/18 at 12:14; Stop 01/27/18 at 13:16; Status DC Clopidogrel Bisulfate (Plavix) 75 mg DAILYWBKFT PO Last administered on at 09:13; Start 01/28/18 at 08:00; Stop 01/28/18 at 14:28; Status DC Hydromorphone HCl (Dilaudid) 2 mg STK-MED ONCE .ROUTE ; Start 01/27/18 at 15:38 ; Stop 01/27/18 at 15:40; Status DC Gentamicin Sulfate 235 mg/ Dextrose 105.875 ml @ 105.875 mls/hr 1X ONCE IV Last administered on 01/27/18at 19:56; Start 01/27/18 at 16:00; Stop 01/27/18 at 16:59; Status DC Lactobacillus Rhamnosus (Culturelle) 1 cap BID PO Last administered on at 20:50; Start 01/27/18 at 21:00 Cefepime HCl 1 gm/ Dextrose 50 ml @ 100 mls/hr DAILY IV ; Start 01/29/18 at 09: 00; Status UNV Metronidazole 100 ml @ 100 mls/hr Q12HR IV Last administered on 02/02/18at 21: 00; Start 01/28/18 at 10:00; Stop 02/03/18 at 10:49; Status DC Cefepime HCl (Maxipime) 1 gm Q24H IVP Last administered on 02/03/18at 10:54; Start 01/28/18 at 10:00 Lidocaine HCl (Xylocaine-Mpf 2% Vial) 2 ml STK-MED ONCE .ROUTE ; Start 01/28/18 at 11:41; Stop 01/28/18 at 11:42; Status DC Sodium Chloride 1,000 ml @ 1,000 mls/hr Q1H PRN IV hypotension; Start 01/28/18 at 12:09; Stop 01/28/18 at 18:08; Status DC Info (PHARMACY MONITORING -- do not chart) 1 each PRN DAILY PRN MC SEE COMMENTS ; Start 01/28/18 at 12:15; Status UNV Info (PHARMACY MONITORING -- do not chart) 1 each PRN DAILY PRN MC SEE COMMENTS ; Start 01/28/18 at 12:15; Stop 01/31/18 at 09:10; Status DC Lidocaine HCl (Xylocaine-Mpf 2% Vial) 2 ml 1X ONCE INJ ; Start 01/28/18 at 12: 15; Stop 01/28/18 at 12:21; Status DC Ticagrelor (Brilinta) 90 mg BID PO Last administered on 02/03/18at 20:50; Start 01/28/18 at 21:00 Diphenhydramine HCl (Benadryl) 25 mg PRN Q6HRS PRN PO ITCHING; Start 01/28/18 at 14:15 Aspirin (Ecotrin) 81 mg DAILYWBKFT PO Last administered on 02/03/18at 10:50; Start 01/29/18 at 08:00 Insulin Human Lispro (HumaLOG) 0-5 UNITS TIDWMEALS SQ Last administered on 03/14at 08:47; Start 01/28/18 at 17:00 Dextrose (Dextrose 50%-Water Syringe) 12.5 gm PRN Q15MIN PRN IV SEE COMMENTS; Start 01/28/18 at 14:45 Hydralazine HCl (Apresoline) 10 mg PRN TID PRN PO hypertension; Start 01/28/18 at 14:45 Oxycodone/ Acetaminophen (Percocet 10/325) 1 tab PRN Q4HRS PRN PO pain SEVERE Last administered on 02/03/18at 10:48; Start 01/29/18 at 07:45 Promethazine HCl (Phenergan Supp) 12.5 mg 1X ONCE MD ; Start 01/29/18 at 12:15 ; Stop 01/29/18 at 12:36; Status DC Promethazine HCl (Phenergan Im) 12.5 mg 1X ONCE IM ; Start 01/29/18 at 12:45; Stop 01/29/18 at 12:46; Status DC Lidocaine/ Epinephrine (LIDOCAINE 1%-EPI 1:100,000 Multi-Dose) 20 ml STK-MED ONCE .ROUTE ; Start 01/29/18 at 12:45; Stop 01/29/18 at 12:47; Status DC Heparin Sodium (Porcine) (Hep Lock Adult) 500 unit STK-MED ONCE IV ; Start 01/29 at 12:45; Stop 01/29/18 at 12:47; Status DC Morphine Sulfate (Morphine Sulfate) 10 mg STK-MED ONCE .ROUTE ; Start 01/29/18 at 13:23; Stop 01/29/18 at 13:25; Status DC Midazolam HCl (Versed) 2 mg STK-MED ONCE .ROUTE ; Start 01/29/18 at 13:23; Stop 01/29/18 at 13:25; Status DC Morphine Sulfate (Morphine Sulfate) 1 mg PRN Q10MIN PRN IV SEVERE PAIN Last administered on 02/01/18at 15:46; Start 02/01/18 at 07:00; Stop 02/02/18 at 06:59 ; Status DC Ringer's Solution 1,000 ml @ 30 mls/hr Q24H IV ; Start 02/01/18 at 07:00; Stop 02/01/18 at 18:59; Status DC Lidocaine HCl (Xylocaine-Mpf 1% 2ml Vial) 2 ml PRN 1X PRN ID PRIOR TO IV START ; Start 02/01/18 at 07:00; Stop 02/02/18 at 06:59; Status DC Hydromorphone HCl (Dilaudid) 0.5 mg PRN Q10MIN PRN IV SEV PAIN, Second choice Last administered on 02/01/18at 16:08; Start 02/01/18 at 07:00; Stop 02/02/18 at 06:59; Status DC Prochlorperazine Edisylate (Compazine) 5 mg PACU PRN PRN IV NAUSEA, MRX1; Start 02/01/18 at 07:00; Stop 02/02/18 at 06:59; Status DC Lidocaine/ Epinephrine (LIDOCAINE 1%-EPI 1:100,000 Multi-Dose) 8 ml 1X ONCE IJ Last administered on 01/29/18at 14:01; Start 01/29/18 at 14:00; Stop 01/29/18 at 14:17; Status DC Heparin Sodium (Porcine) (Hep Lock Adult) 500 unit 1X ONCE IV Last administered on 01/29/18at 14:04; Start 01/29/18 at 14:00; Stop 01/29/18 at 14:17 ; Status DC Morphine Sulfate (Morphine Sulfate) 5 mg 1X ONCE IV Last administered on at 14:01; Start 01/29/18 at 14:00; Stop 01/29/18 at 14:17; Status DC Ondansetron HCl (Zofran) 4 mg PRN Q6HRS PRN IV NAUSEA/VOMITING 1ST CHOICE Last administered on 02/02/18at 09:51; Start 01/29/18 at 14:45 Vancomycin HCl 500 mg/Sodium Chloride 100 ml @ 100 mls/hr 1X ONCE IV Last administered on 01/29/18at 21:04; Start 01/29/18 at 18:00; Stop 01/29/18 at 18:59 ; Status DC Sodium Chloride 1,000 ml @ 1,000 mls/hr Q1H PRN IV hypotension; Start 01/30/18 at 13:09; Stop 01/30/18 at 19:08; Status DC Sodium Chloride (Normal Saline Flush) 10 ml 1X PRN PRN IV AP catheter pack; Start 01/30/18 at 13:15; Stop 01/31/18 at 13:14; Status DC Sodium Chloride (Normal Saline Flush) 10 ml 1X PRN PRN IV OPENER catheter pack; Start 01/30/18 at 13:15; Stop 01/31/18 at 13:14; Status DC Sodium Chloride 1,000 ml @ 400 mls/hr Q2H30M PRN IV PATENCY; Start 01/30/18 at 13:09; Stop 01/31/18 at 01:08; Status DC Info (PHARMACY MONITORING -- do not chart) 1 each PRN DAILY PRN MC SEE COMMENTS ; Start 01/30/18 at 13:15; Stop 01/30/18 at 13:17; Status DC Info (PHARMACY MONITORING -- do not chart) 1 each PRN DAILY PRN MC SEE COMMENTS ; Start 01/30/18 at 13:15; Stop 02/04/18 at 07:27; Status DC Lidocaine HCl (Lidocaine 1% 50ml Vial) 50 ml 1X ONCE INJ ; Start 01/30/18 at 15 :45; Stop 01/30/18 at 15:46; Status DC Vancomycin HCl 500 mg/Sodium Chloride 100 ml @ 100 mls/hr ONCE ONCE IV Last administered on 01/30/18at 20:49; Start 01/30/18 at 18:00; Stop 01/30/18 at 18:59 ; Status DC Cefazolin Sodium 1 gm/Sodium Chloride 500 ml @ 500 mls/hr 1X ONCE IRR ; Start 02/01/18 at 06:00; Stop 02/01/18 at 06:59; Status DC Lidocaine HCl (Xylocaine-Mpf 2% Vial) 2 ml STK-MED ONCE .ROUTE ; Start 01/28/18 at 12:00; Stop 02/01/18 at 08:30; Status DC Darbepoetin Mauricio (Aranesp) 60 mcg [id number] SQ Last administered on 02/01/18at 21 :38; Start 02/01/18 at 21:00 Cellulose (Surgicel Fibrillar 1x2) 1 each STK-MED ONCE .ROUTE ; Start 02/01/18 at 12:05; Stop 02/01/18 at 13:06; Status DC Lidocaine HCl (Xylocaine 1% Pf 30ml Vial) 30 ml 1X ONCE INJ ; Start 02/01/18 at 13:15; Stop 02/01/18 at 13:18; Status DC Sodium Chloride 1,000 ml @ 75 mls/hr [id number] IV Last administered on at 00:15; Start 02/01/18 at 13:45; Stop 02/02/18 at 16:43; Status DC Morphine Sulfate (Morphine Sulfate) 10 mg STK-MED ONCE .ROUTE ; Start 02/01/18 at 14:24; Stop 02/01/18 at 14:25; Status DC Midazolam HCl (Versed) 2 mg STK-MED ONCE .ROUTE ; Start 02/01/18 at 14:24; Stop 02/01/18 at 14:25; Status DC Midazolam HCl (Versed) 2 mg STK-MED ONCE .ROUTE ; Start 02/01/18 at 14:25; Stop 02/01/18 at 14:26; Status DC Propofol 20 ml @ As Directed STK-MED ONCE IV ; Start 02/01/18 at 14:25; Stop at 14:26; Status DC Dexamethasone Sodium Phosphate (Decadron) 20 mg STK-MED ONCE .ROUTE ; Start 02/01/18 at 14:25; Stop 02/01/18 at 14:26; Status DC Ondansetron HCl (Zofran) 4 mg STK-MED ONCE .ROUTE ; Start 02/01/18 at 14:25; Stop 02/01/18 at 14:26; Status DC Bacitracin (Bacitracin) 50,000 unit STK-MED ONCE IRR Last administered on at 14:55; Start 02/01/18 at 13:32; Stop 02/01/18 at 14:32; Status DC Vancomycin HCl 500 mg/Sodium Chloride 100 ml @ 100 mls/hr [id number] IV Last administered on 02/02/18at 16:15; Start 02/02/18 at 16:00 Sodium Chloride 1,000 ml @ 1,000 mls/hr Q1H PRN IV hypotension; Start 02/02/18 at 09:39; Stop 02/02/18 at 15:38; Status DC Albumin Human 200 ml @ 200 mls/hr 1X PRN PRN IV Hypotension; Start 02/02/18 at 09:45; Stop 02/02/18 at 15:44; Status DC Sodium Chloride 1,000 ml @ 400 mls/hr Q2H30M PRN IV PATENCY; Start 02/02/18 at 09:39; Stop 02/02/18 at 21:38; Status DC Info (PHARMACY MONITORING -- do not chart) 1 each PRN DAILY PRN MC SEE COMMENTS ; Start 02/02/18 at 09:45; Stop 02/04/18 at 07:28; Status DC Info (PHARMACY MONITORING -- do not chart) 1 each PRN DAILY PRN MC SEE COMMENTS ; Start 02/02/18 at 09:45; Status UNV Prochlorperazine Edisylate (Compazine) 10 mg PRN Q6HRS PRN IV NAUSEA/VOMITING 2ND CHOICE Last administered on 02/02/18at 23:23; Start 02/02/18 at 11:30 Vancomycin HCl (Vanco Per Pharmacy) 1 each PRN DAILY PRN MC SEE COMMENTS Last administered on 02/02/18at 13:57; Start 02/02/18 at 14:00 Famotidine (Pepcid Vial) 20 mg DAILY IVP Last administered on 02/03/18at 10:48 ; Start 02/03/18 at 10:00 Alteplase, Recombinant (Cathflo) 2 mg 1X ONCE INT CAT Last administered on 03/14at 02:56; Start 02/04/18 at 03:00; Stop 02/04/18 at 03:01; Status DC Sodium Chloride 1,000 ml @ 1,000 mls/hr Q1H PRN IV hypotension; Start at 07:15; Stop 02/04/18 at 13:14 Albumin Human 200 ml @ 200 mls/hr 1X PRN PRN IV Hypotension; Start 02/04/18 at 07:15; Stop 02/04/18 at 13:14 Acetaminophen (Tylenol) 500 mg 1X PRN PRN PO MILD PAIN / TEMP; Start 02/04/18 at 07:15; Stop 02/05/18 at 07:14 Diphenhydramine HCl (Benadryl) 25 mg 1X PRN PRN IV ITCHING; Start 02/04/18 at 07:15; Stop 02/05/18 at 07:14 Diphenhydramine HCl (Benadryl) 25 mg 1X PRN PRN IV ITCHING; Start 02/04/18 at 07:15; Stop 02/05/18 at 07:14 Sodium Chloride 1,000 ml @ 400 mls/hr Q2H30M PRN IV PATENCY; Start 02/04/18 at 07:15; Stop 02/04/18 at 19:14 Info (PHARMACY MONITORING -- do not chart) 1 each PRN DAILY PRN MC SEE COMMENTS ; Start 02/04/18 at 07:15 Active Scripts Active Percocet 10-325 Mg Tablet (Oxycodone/Acetaminophen) 1 Each Tablet 1 Tab PO Q4HRS Brilinta (Ticagrelor) 90 Mg Tablet 90 Mg PO BID 30 Days Morphine Sulfate Er (Morphine Sulfate) 15 Mg Tablet.er 15 Mg PO BID Reported Brilinta (Ticagrelor) 90 Mg Tablet 90 Mg PO BID Lidocaine 1 Each Adh..patch 1 Each TP PRN DAILY PRN Calcitriol 0.25 Mcg Capsule 1 Cap PO DAILY Tegretol (Carbamazepine) 200 Mg Tablet 1 Tab PO BID Tramadol Hcl 50 Mg Tablet 50 Mg PO Q4HRS PRN Lantus Solostar (Insulin Glargine,Hum.rec.anlog) 100 Unit/1 Ml Insuln.pen 22 Unit SQ QHS Diflucan (Fluconazole) 100 Mg Tablet 100 Mg PO PRN Carvedilol 3.125 Mg Tablet 12.5 Mg PO BID Erythromycin (Erythromycin Base) 250 Mg Capsule.dr 250 Mg PO BID Cardizem Cd (Diltiazem Hcl) 180 Mg Cap.er.24h 120 Mg PO DAILY Amiodarone Hcl 200 Mg Tablet 1 Tab PO DAILY Nystatin 15 Gm Powder 1 Susanna TP PRN BID PRN Proventil Hfa Inhaler (Albuterol Sulfate) 6.7 Gm Hfa.aer.ad 2 Puff IH BID PRN Zofran (Ondansetron Hcl) 4 Mg Tablet 4 Mg PO Q6-8HRS PRN Nephro-Shabbir Tablet (Folic Acid/Vitamin B Comp W-C) 0.8 Mg Tablet 1 Tab PO DAILY Tricor (Fenofibrate Nanocrystallized) 145 Mg Tablet 1 Tab PO HS Lipitor (Atorvastatin Calcium) 80 Mg Tablet 80 Mg PO HS Niacin 500 Mg Tablet 500 Mg PO HS Novolog (Insulin Aspart) 100 Unit/1 Ml Cartridge 0 SQ TIDAC sliding scale Aspirin 325 Mg Tablet 325 Mg PO DAILY Furosemide 80 Mg Tablet 80 Mg PO BID Docusate Sodium 100 Mg Capsule 1 Cap PO PRN PRN Nitrostat (Nitroglycerin) 0.4 Mg Tab.subl 0.4 Mg SL PRN Q5MIN PRN Take as needed for chest pain Vitals/I & O Vital Sign - Last 24 Hours 02/03/18 02/03/18 02/03/18 02/03/18 10:48 10:49 10:49 10:50 Pulse 74 74 B/P (MAP) 154/63 154/63 O2 Delivery Room Air Room Air 02/03/18 02/03/18 02/03/18 02/03/18 10:51 11:00 12:28 12:30 Temp 97.7 97.7 Pulse 74 86 Resp 18 B/P (MAP) 154/63 160/61 (94) Pulse Ox 100 O2 Delivery Room Air Room Air Room Air 02/03/18 02/03/18 02/03/1802/03/18 15:00 15:49 16:13 18:03 Temp 97.7 97.7 Pulse 87 Resp 18 B/P (MAP) 165/54 (91) Pulse Ox 98 O2 Delivery Room Air Nasal Cannula Nasal Cannula Nasal Cannula O2 Flow Rate 2.0 2.0 2.0 02/03/18 02/03/18 02/03/18 02/03/18 18:05 19:00 20:00 20:41 Temp 97.9 97.9 Pulse 87 81 Resp 18 B/P (MAP) 165/54 132/59 (83) Pulse Ox 100 O2 Delivery Room Air Nasal Cannula Nasal Cannula O2 Flow Rate 2.0 3.0 02/03/18 02/03/18 02/04/18 02/04/18 20:50 23:00 03:00 03:40 Temp 97.7 97.5 97.7 97.5 Pulse 73 79 Resp 18 18 B/P (MAP) 163/60 (94) 158/49 (85) Pulse Ox 100 100 O2 Delivery Nasal Cannula Room Air Room Air Nasal Cannula O2 Flow Rate 3.0 3.0 02/04/18 02/04/18 02/04/18 07:15 08:35 09:15 Temp 97.3 97.3 Pulse 76 Resp 18 B/P (MAP) 119/45 (69) Pulse Ox 99 O2 Delivery Room Air Room Air Nasal Cannula O2 Flow Rate 2.0 Intake and Output 02/03/18 02/03/18 02/04/18 15:00 23:00 07:00 Intake Total 600 ml 1000 ml 1450 ml Output Total 0 ml Balance 600 ml 1000 ml 1450 ml PAPITO REZA III DO Feb 04, 2018 09:49
--- NOTE | 2018-02-04 10:12 | PDOC ---
PROGRESS NOTES Objective Objective Vascular Surgery - POD#3/#8 Right groin sharp excisional debridement of necrotic skin and subcutaneous tissue; Right groin wound VAC placement. S: "It really hurt yesterday with my dressing change. Can we do something about that?" O: Patient about to go on dialysis. CV: VSS. RRR Pulm: Unlabored. On supplemental oxygen 2L RLE: Wound vac dressing intact. Surrounding tissue soft and without erythema. Has had 350cc bloody output in vac canister. RN reports increase in output after dressing change yesterday. Seems to have stabilized. Appearance of cellulitis has improved greatly to lower leg with reduction in erythema, although still present. Leg incision remains intact with alberto (other than upper portion with wound vac dressing) Strong palpable bypass graft. Assessment/Plan: 1. Severe PAD - POD#28 Right common femoral & profunda artery endart; Right common femoral artery to below knee pop bypass; Right leg GSV harvest * patent bypass graft * continue antiplatelet therapy, unless deemed contraindicated tomorrow with results of EGD. * consider removing alberto prior to discharge next week as long as swelling and cellulitis continues to improve. 2. Coffee-ground emesis * Patient scheduled for EGD in a.m. at 1030. * await results 3. Surgical incision infection - POD#8/#3 Right groin wound debridement with muscle flap and wound vac dressing application. * C/S + Klebsiella - continue IV antibiotic therapy as per ID. * continue wound vac therapy with dressing changes M-W-F's * will coordinate wound vac dressing change after EGD tomorrow in recovery while patient remains sedated. * information strategist will be available and will attempt to have staff from vascular surgery available as well to evaluate wound bed. 4. cement sprayer helper working on placement for next week. Vital Signs Date Time Temp Pulse Resp B/P (MAP) Pulse Ox O2 Delivery O2 Flow Rate FiO2 18 09:15 Nasal Cannula 2.0 18 07:15 97.3 76 18 119/45 (69) 99 97.3 Intake and Output 02/04/18 07:00 Intake Total 3050 ml Output Total 0 ml Balance 3050 ml Intake Oral 3050 ml Output Urine Total 0 ml Assessment Assessment Problems Medical Problems: (1) Chronic renal failure Status: Acute Comment Review of Relevant I have reviewed the following items bert (where applicable) has been applied. Labs Laboratory Tests Test 02/02/18 16:57 02/02/18 20:44 02/03/18 04:25 02/03/18 07:37 Glucose (Fingerstick) 224 mg/dL (70-99) 187 mg/dL (70-99) 140 mg/dL (70-99) White Blood Count 15.1 x10^3/uL (4.0-11.0) Red Blood Count 2.55 x10^6/uL (3.50-5.40) Hemoglobin 7.9 g/dL (12.0-15.5) Hematocrit 24.0 % (36.0-47.0) Mean Corpuscular Volume 94 fL (79-100) Mean Corpuscular Hemoglobin 31 pg (25-35) Mean Corpuscular Hemoglobin Concent 33 g/dL (31-37) Red Cell Distribution Width 17.5 % (11.5-14.5) Platelet Count 368 x10^3/uL (140-400) Neutrophils (%) (Auto) 84 % (31-73) Lymphocytes (%) (Auto) 9 % (24-48) Monocytes (%) (Auto) 6 % (0-9) Eosinophils (%) (Auto) 0 % (0-3) Basophils (%) (Auto) 0 % (0-3) Neutrophils # (Auto) 12.7 x10^3uL (1.8-7.7) Lymphocytes # (Auto) 1.4 x10^3/uL (1.0-4.8) Monocytes # (Auto) 0.9 x10^3/uL (0.0-1.1) Eosinophils # (Auto) 0.0 x10^3/uL (0.0-0.7) Basophils # (Auto) 0.0 x10^3/uL (0.0-0.2) Sodium Level 146 mmol/L (136-145) Potassium Level 4.3 mmol/L (3.5-5.1) Chloride Level 103 mmol/L (98-107) Carbon Dioxide Level 34 mmol/L (21-32) Anion Gap 9 (6-14) Blood Urea Nitrogen 39 mg/dL (7-20) Creatinine 3.9 mg/dL (0.6-1.0) Estimated GFR (Cockcroft-Gault) 12.1 Glucose Level 179 mg/dL (70-99) Calcium Level 8.1 mg/dL (8.5-10.1) Phosphorus Level 4.5 mg/dL (2.6-4.7) Albumin 1.5 g/dL (3.4-5.0) Test 02/03/18 10:43 02/03/18 17:51 02/03/18 20:18 02/04/18 03:35 Glucose (Fingerstick) 121 mg/dL (70-99) 155 mg/dL (70-99) 164 mg/dL (70-99) White Blood Count 16.3 x10^3/uL (4.0-11.0) Red Blood Count 2.34 x10^6/uL (3.50-5.40) Hemoglobin 7.4 g/dL (12.0-15.5) Hematocrit 22.5 % (36.0-47.0) Mean Corpuscular Volume 96 fL (79-100) Mean Corpuscular Hemoglobin 32 pg (25-35) Mean Corpuscular Hemoglobin Concent 33 g/dL (31-37) Red Cell Distribution Width 17.2 % (11.5-14.5) Platelet Count 347 x10^3/uL (140-400) Neutrophils (%) (Auto) 82 % (31-73) Lymphocytes (%) (Auto) 11 % (24-48) Monocytes (%) (Auto) 6 % (0-9) Eosinophils (%) (Auto) 1 % (0-3) Basophils (%) (Auto) 1 % (0-3) Neutrophils # (Auto) 13.4 x10^3uL (1.8-7.7) Lymphocytes # (Auto) 1.7 x10^3/uL (1.0-4.8) Monocytes # (Auto) 1.0 x10^3/uL (0.0-1.1) Eosinophils # (Auto) 0.1 x10^3/uL (0.0-0.7) Basophils # (Auto) 0.1 x10^3/uL (0.0-0.2) Sodium Level 139 mmol/L (136-145) Potassium Level 4.8 mmol/L (3.5-5.1) Chloride Level 101 mmol/L (98-107) Carbon Dioxide Level 26 mmol/L (21-32) Anion Gap 12 (6-14) Blood Urea Nitrogen 56 mg/dL (7-20) Creatinine 4.8 mg/dL (0.6-1.0) Estimated GFR (Cockcroft-Gault) 9.5 BUN/Creatinine Ratio 12 (6-20) Glucose Level 328 mg/dL (70-99) Calcium Level 7.9 mg/dL (8.5-10.1) Total Bilirubin 0.3 mg/dL (0.2-1.0) Aspartate Amino Transf (AST/SGOT) 12 U/L (15-37) Alanine Aminotransferase (ALT/SGPT) 10 U/L (14-59) Alkaline Phosphatase 119 U/L (46-116) Total Protein 4.9 g/dL (6.4-8.2) Albumin 1.7 g/dL (3.4-5.0) Albumin/Globulin Ratio 0.5 (1.0-1.7) Test 02/04/18 07:45 Glucose (Fingerstick) 343 mg/dL (70-99) Laboratory Tests Test 02/03/18 10:43 02/03/18 17:51 02/03/18 20:18 02/04/18 03:35 Glucose (Fingerstick) 121 mg/dL (70-99) 155 mg/dL (70-99) 164 mg/dL (70-99) White Blood Count 16.3 x10^3/uL (4.0-11.0) Red Blood Count 2.34 x10^6/uL (3.50-5.40) Hemoglobin 7.4 g/dL (12.0-15.5) Hematocrit 22.5 % (36.0-47.0) Mean Corpuscular Volume 96 fL (79-100) Mean Corpuscular Hemoglobin 32 pg (25-35) Mean Corpuscular Hemoglobin Concent 33 g/dL (31-37) Red Cell Distribution Width 17.2 % (11.5-14.5) Platelet Count 347 x10^3/uL (140-400) Neutrophils (%) (Auto) 82 % (31-73) Lymphocytes (%) (Auto) 11 % (24-48) Monocytes (%) (Auto) 6 % (0-9) Eosinophils (%) (Auto) 1 % (0-3) Basophils (%) (Auto) 1 % (0-3) Neutrophils # (Auto) 13.4 x10^3uL (1.8-7.7) Lymphocytes # (Auto) 1.7 x10^3/uL (1.0-4.8) Monocytes # (Auto) 1.0 x10^3/uL (0.0-1.1) Eosinophils # (Auto) 0.1 x10^3/uL (0.0-0.7) Basophils # (Auto) 0.1 x10^3/uL (0.0-0.2) Sodium Level 139 mmol/L (136-145) Potassium Level 4.8 mmol/L (3.5-5.1) Chloride Level 101 mmol/L (98-107) Carbon Dioxide Level 26 mmol/L (21-32) Anion Gap 12 (6-14) Blood Urea Nitrogen 56 mg/dL (7-20) Creatinine 4.8 mg/dL (0.6-1.0) Estimated GFR (Cockcroft-Gault) 9.5 BUN/Creatinine Ratio 12 (6-20) Glucose Level 328 mg/dL (70-99) Calcium Level 7.9 mg/dL (8.5-10.1) Total Bilirubin 0.3 mg/dL (0.2-1.0) Aspartate Amino Transf (AST/SGOT) 12 U/L (15-37) Alanine Aminotransferase (ALT/SGPT) 10 U/L (14-59) Alkaline Phosphatase 119 U/L (46-116) Total Protein 4.9 g/dL (6.4-8.2) Albumin 1.7 g/dL (3.4-5.0) Albumin/Globulin Ratio 0.5 (1.0-1.7) Test 02/04/18 07:45 Glucose (Fingerstick) 343 mg/dL (70-99) Microbiology 01/26/18 Blood Culture - Final, Complete NO GROWTH AFTER 5 DAYS 01/27/18 Anaerobic/Aerobic Culture - Final, Complete 01/27/18 Anaerobic Culture Result 1 (ROSALIND) - Final, Complete 01/27/18 Aerobic Culture - Final, Complete 01/27/18 Aerobic Culture Result 1 (ROSALIND) - Final, Complete 01/27/18 Antimicrobic Susceptibility - Final, Complete 01/27/18 Gram Stain - Final, Complete 01/27/18 Gram Stain Result 1 (ROSALIND) - Final, Complete 01/27/18 Gram Stain Result 2 (ROSALIND) - Final, Complete Medications Current Medications Hydromorphone HCl (Dilaudid) 2 mg 1X ONCE IV Last administered on 01/26/18at 22 :39; Start 01/26/18 at 22:00; Stop 01/26/18 at 22:01; Status DC Vancomycin HCl (Vanco Per Pharmacy) 1 each PRN DAILY PRN MC SEE COMMENTS Last administered on 01/31/18at 17:20; Start 01/26/18 at 22:45; Stop 02/01/18 at 11:41 ; Status DC Vancomycin HCl 1.75 gm/Sodium Chloride 500 ml @ 250 mls/hr 1X ONCE IV Last administered on 01/26/18at 23:53; Start 01/26/18 at 23:00; Stop 01/27/18 at 00:59 ; Status DC Ondansetron HCl (Zofran) 4 mg PRN Q8HRS PRN IV NAUSEA/VOMITING 1ST CHOICE; Start 01/26/18 at 23:15; Stop 01/27/18 at 23:14; Status DC Sodium Chloride 1,000 ml @ 75 mls/hr [id number] IV Last administered on at 00:39; Start 01/26/18 at 23:30; Stop 01/27/18 at 23:29; Status DC Pharmacy Consult (C.diff Med Screen By Rx) 1 each 1X ONCE MC ; Start 01/27/18 at 01:00; Stop 01/27/18 at 01:01; Status Cancel Influenza Virus Vaccine (Afluria Trivalent 2911-2360 Syringe) 0.5 ml ONCE ONCE VAX IM Last administered on 01/27/18at 09:00; Start 01/27/18 at 09:00; Stop 01/27/18 at 09:01; Status DC Vancomycin HCl (Vancomycin Random Level) 1 each 1X ONCE MC Last administered on 01/28/18at 05:00; Start 01/28/18 at 05:00; Stop 01/28/18 at 05:01; Status DC Hydromorphone HCl (Dilaudid) 1 mg PRN Q3HRS PRN IV SEVERE PAIN Last administered on 02/04/18at 09:15; Start 01/27/18 at 03:30 Ondansetron HCl (Zofran) 4 mg PRN Q6HRS PRN IV NAUSEA/VOMITING; Start 01/27/18 at 10:45; Stop 01/27/18 at 18:00; Status DC Fentanyl Citrate (Fentanyl 2ml Vial) 25 mcg PRN Q5MIN PRN IV MILD PAIN; Start 01/27/18 at 10:45; Stop 01/27/18 at 18:00; Status DC Fentanyl Citrate (Fentanyl 2ml Vial) 50 mcg PRN Q5MIN PRN IV MODERATE TO SEVERE PAIN; Start 01/27/18 at 10:45; Stop 01/27/18 at 18:00; Status DC Morphine Sulfate (Morphine Sulfate) 1 mg PRN Q10MIN PRN IV SEVERE PAIN Last administered on 01/27/18at 16:28; Start 01/27/18 at 10:45; Stop 01/27/18 at 18:00 ; Status DC Ringer's Solution 1,000 ml @ 30 mls/hr Q24H IV Last administered on 01/27/18at 10:35; Start 01/27/18 at 10:35; Stop 01/27/18 at 19:36; Status DC Lidocaine HCl (Xylocaine-Mpf 1% 2ml Vial) 2 ml 1X PRN PRN ID IV START; Start 01/27/18 at 10:45; Stop 01/27/18 at 18:00; Status DC Hydromorphone HCl (Dilaudid) 0.5 mg PRN Q10MIN PRN IV SEV PAIN, Second choice Last administered on 01/27/18at 15:59; Start 01/27/18 at 10:45; Stop 01/27/18 at 18:00; Status DC Prochlorperazine Edisylate (Compazine) 5 mg PACU PRN PRN IV NAUSEA, MRX1; Start 01/27/18 at 10:45; Stop 01/27/18 at 18:00; Status DC Amiodarone HCl (Cordarone) 200 mg DAILY PO Last administered on 02/03/18at 10: 49; Start 01/27/18 at 12:30 Aspirin (Anthony Aspirin) 325 mg DAILY PO Last administered on 01/28/18at 09:13; Start 01/27/18 at 12:30; Stop 01/28/18 at 14:26; Status DC Carbamazepine (TEGretol) 200 mg BID PO Last administered on 02/03/18 20:50; Start 01/27/18 at 12:30 Carvedilol (Coreg) 12.5 mg BIDWMEALS PO Last administered on 02/03/18 18:05; Start 01/27/18 at 12:30 Vitamin B Complex/ Vitamin C (Melly-Shabbir) 1 tab DAILY PO Last administered on 10:49; Start 01/27/18 at 12:30 Furosemide (Lasix) 80 mg [id number] PO Last administered on 02/03/18 10:52; Start 01/27/18 at 12:30 Insulin Glargine (Lantus) 22 units QHS SQ Last administered on 02/03/18 21:01 ; Start 01/27/18 at 21:00 Morphine Sulfate (Ms Contin) 15 mg BID PO Last administered on 02/04/18 08:35 ; Start 01/27/18 at 12:30 Nitroglycerin (Nitrostat) 0.4 mg PRN Q5MIN PRN SL CHEST PAIN; Start 01/27/18 at 12:00 Nystatin (Nystop) 1 susanna PRN BID PRN TP SKIN BREAKDOWN; Start 01/27/18 at 12:00 Tramadol HCl (Ultram) 50 mg PRN Q4HRS PRN PO HEADACHE; Start 01/27/18 at 12:00 Non-Formulary Medication (Albuterol Sulfate (Proventil Hfa Inhaler)) 2 puff BID PRN IH FOR ASTHMA; Start 01/27/18 at 12:00; Status UNV Atorvastatin Calcium (Lipitor) 80 mg QHS PO Last administered on 02/03/18 20: 50; Start 01/27/18 at 21:00 Calcitriol (Rocaltrol) 0.25 mcg DAILY PO Last administered on 02/03/18 10:50 ; Start 01/27/18 at 12:30 Diltiazem HCl (Cardizem 24hr Cd) 120 mg DAILY PO Last administered on 10:51; Start 01/27/18 at 12:30 Erythromycin (E-Mycin) 250 mg BID PO Last administered on 02/03/18 20:49; Start 01/27/18 at 21:00 Fenofibrate (Lofibra) 134 mg QHS PO Last administered on 02/03/18at 20:51; Start 01/27/18 at 21:00 Non-Formulary Medication (Fluconazole (Diflucan)) 100 mg PRN PO ; Start at 12:00; Status UNV Lidocaine (Lidoderm) 1 patch PRN DAILY PRN TD PAIN; Start 01/27/18 at 09:00 Niacin (Slo-Niacin) 500 mg QHS PO Last administered on 02/03/18at 20:50; Start 01/27/18 at 21:00 Ondansetron HCl (Zofran Odt) 4 mg PRN Q6HRS PRN PO NAUSEA/VOMITING; Start 01/27 at 12:15 Miscellaneous (Lidoderm Patch Removal) 1 ea QHS MC Last administered on at 21:00; Start 01/27/18 at 21:00 Albuterol Sulfate (Ventolin Neb Soln) 2.5 mg PRN BID PRN NEB SHORTNESS OF BREATH Last administered on 01/27/18at 21:59; Start 01/27/18 at 12:30 Lidocaine HCl (Lidocaine 1% 50ml Vial) 50 ml 1X ONCE INJ Last administered on 01/27/18at 14:06; Start 01/27/18 at 12:45; Stop 01/27/18 at 12:46; Status DC Hydromorphone HCl (Dilaudid) 2 mg STK-MED ONCE .ROUTE ; Start 01/27/18 at 12:36 ; Stop 01/27/18 at 12:38; Status DC Propofol 20 ml @ As Directed STK-MED ONCE IV ; Start 01/27/18 at 12:38; Stop at 12:39; Status DC Bacitracin 23295 unit/Sodium Chloride 3,000 ml @ 0 mls/hr 1X ONCE IR ; Start 01/27/18 at 13:15; Stop 01/27/18 at 13:16; Status Cancel Dexamethasone Sodium Phosphate (Decadron) 20 mg STK-MED ONCE .ROUTE ; Start 01/27/18 at 13:11; Stop 01/27/18 at 13:12; Status DC Ondansetron HCl (Zofran) 4 mg STK-MED ONCE .ROUTE ; Start 01/27/18 at 13:11; Stop 01/27/18 at 13:12; Status DC Sevoflurane (Ultane) 30 ml STK-MED ONCE IH ; Start 01/27/18 at 13:11; Stop 01/27 at 13:12; Status DC Bacitracin (Bacitracin) 50,000 unit STK-MED ONCE IRR Last administered on at 13:58; Start 01/27/18 at 12:14; Stop 01/27/18 at 13:16; Status DC Clopidogrel Bisulfate (Plavix) 75 mg DAILYWBKFT PO Last administered on at 09:13; Start 01/28/18 at 08:00; Stop 01/28/18 at 14:28; Status DC Hydromorphone HCl (Dilaudid) 2 mg STK-MED ONCE .ROUTE ; Start 01/27/18 at 15:38 ; Stop 01/27/18 at 15:40; Status DC Gentamicin Sulfate 235 mg/ Dextrose 105.875 ml @ 105.875 mls/hr 1X ONCE IV Last administered on 01/27/18at 19:56; Start 01/27/18 at 16:00; Stop 01/27/18 at 16:59; Status DC Lactobacillus Rhamnosus (Culturelle) 1 cap BID PO Last administered on at 20:50; Start 01/27/18 at 21:00 Cefepime HCl 1 gm/ Dextrose 50 ml @ 100 mls/hr DAILY IV ; Start 01/29/18 at 09: 00; Status UNV Metronidazole 100 ml @ 100 mls/hr Q12HR IV Last administered on 02/02/18at 21: 00; Start 01/28/18 at 10:00; Stop 02/03/18 at 10:49; Status DC Cefepime HCl (Maxipime) 1 gm Q24H IVP Last administered on 02/03/18at 10:54; Start 01/28/18 at 10:00 Lidocaine HCl (Xylocaine-Mpf 2% Vial) 2 ml STK-MED ONCE .ROUTE ; Start 01/28/18 at 11:41; Stop 01/28/18 at 11:42; Status DC Sodium Chloride 1,000 ml @ 1,000 mls/hr Q1H PRN IV hypotension; Start 01/28/18 at 12:09; Stop 01/28/18 at 18:08; Status DC Info (PHARMACY MONITORING -- do not chart) 1 each PRN DAILY PRN MC SEE COMMENTS ; Start 01/28/18 at 12:15; Status UNV Info (PHARMACY MONITORING -- do not chart) 1 each PRN DAILY PRN MC SEE COMMENTS ; Start 01/28/18 at 12:15; Stop 01/31/18 at 09:10; Status DC Lidocaine HCl (Xylocaine-Mpf 2% Vial) 2 ml 1X ONCE INJ ; Start 01/28/18 at 12: 15; Stop 01/28/18 at 12:21; Status DC Ticagrelor (Brilinta) 90 mg BID PO Last administered on 02/03/18at 20:50; Start 01/28/18 at 21:00 Diphenhydramine HCl (Benadryl) 25 mg PRN Q6HRS PRN PO ITCHING; Start 01/28/18 at 14:15 Aspirin (Ecotrin) 81 mg DAILYWBKFT PO Last administered on 02/03/18at 10:50; Start 01/29/18 at 08:00 Insulin Human Lispro (HumaLOG) 0-5 UNITS TIDWMEALS SQ Last administered on 03/14at 08:47; Start 01/28/18 at 17:00 Dextrose (Dextrose 50%-Water Syringe) 12.5 gm PRN Q15MIN PRN IV SEE COMMENTS; Start 01/28/18 at 14:45 Hydralazine HCl (Apresoline) 10 mg PRN TID PRN PO hypertension; Start 01/28/18 at 14:45 Oxycodone/ Acetaminophen (Percocet 10/325) 1 tab PRN Q4HRS PRN PO pain SEVERE Last administered on 02/03/18at 10:48; Start 01/29/18 at 07:45 Promethazine HCl (Phenergan Supp) 12.5 mg 1X ONCE MA ; Start 01/29/18 at 12:15 ; Stop 01/29/18 at 12:36; Status DC Promethazine HCl (Phenergan Im) 12.5 mg 1X ONCE IM ; Start 01/29/18 at 12:45; Stop 01/29/18 at 12:46; Status DC Lidocaine/ Epinephrine (LIDOCAINE 1%-EPI 1:100,000 Multi-Dose) 20 ml STK-MED ONCE .ROUTE ; Start 01/29/18 at 12:45; Stop 01/29/18 at 12:47; Status DC Heparin Sodium (Porcine) (Hep Lock Adult) 500 unit STK-MED ONCE IV ; Start 01/29 at 12:45; Stop 01/29/18 at 12:47; Status DC Morphine Sulfate (Morphine Sulfate) 10 mg STK-MED ONCE .ROUTE ; Start 01/29/18 at 13:23; Stop 01/29/18 at 13:25; Status DC Midazolam HCl (Versed) 2 mg STK-MED ONCE .ROUTE ; Start 01/29/18 at 13:23; Stop 01/29/18 at 13:25; Status DC Morphine Sulfate (Morphine Sulfate) 1 mg PRN Q10MIN PRN IV SEVERE PAIN Last administered on 02/01/18at 15:46; Start 02/01/18 at 07:00; Stop 02/02/18 at 06:59 ; Status DC Ringer's Solution 1,000 ml @ 30 mls/hr Q24H IV ; Start 02/01/18 at 07:00; Stop 02/01/18 at 18:59; Status DC Lidocaine HCl (Xylocaine-Mpf 1% 2ml Vial) 2 ml PRN 1X PRN ID PRIOR TO IV START ; Start 02/01/18 at 07:00; Stop 02/02/18 at 06:59; Status DC Hydromorphone HCl (Dilaudid) 0.5 mg PRN Q10MIN PRN IV SEV PAIN, Second choice Last administered on 02/01/18at 16:08; Start 02/01/18 at 07:00; Stop 02/02/18 at 06:59; Status DC Prochlorperazine Edisylate (Compazine) 5 mg PACU PRN PRN IV NAUSEA, MRX1; Start 02/01/18 at 07:00; Stop 02/02/18 at 06:59; Status DC Lidocaine/ Epinephrine (LIDOCAINE 1%-EPI 1:100,000 Multi-Dose) 8 ml 1X ONCE IJ Last administered on 01/29/18at 14:01; Start 01/29/18 at 14:00; Stop 01/29/18 at 14:17; Status DC Heparin Sodium (Porcine) (Hep Lock Adult) 500 unit 1X ONCE IV Last administered on 01/29/18at 14:04; Start 01/29/18 at 14:00; Stop 01/29/18 at 14:17 ; Status DC Morphine Sulfate (Morphine Sulfate) 5 mg 1X ONCE IV Last administered on at 14:01; Start 01/29/18 at 14:00; Stop 01/29/18 at 14:17; Status DC Ondansetron HCl (Zofran) 4 mg PRN Q6HRS PRN IV NAUSEA/VOMITING 1ST CHOICE Last administered on 02/02/18at 09:51; Start 01/29/18 at 14:45 Vancomycin HCl 500 mg/Sodium Chloride 100 ml @ 100 mls/hr 1X ONCE IV Last administered on 01/29/18at 21:04; Start 01/29/18 at 18:00; Stop 01/29/18 at 18:59 ; Status DC Sodium Chloride 1,000 ml @ 1,000 mls/hr Q1H PRN IV hypotension; Start 01/30/18 at 13:09; Stop 01/30/18 at 19:08; Status DC Sodium Chloride (Normal Saline Flush) 10 ml 1X PRN PRN IV AP catheter pack; Start 01/30/18 at 13:15; Stop 01/31/18 at 13:14; Status DC Sodium Chloride (Normal Saline Flush) 10 ml 1X PRN PRN IV STOCK CLERK catheter pack; Start 01/30/18 at 13:15; Stop 01/31/18 at 13:14; Status DC Sodium Chloride 1,000 ml @ 400 mls/hr Q2H30M PRN IV PATENCY; Start 01/30/18 at 13:09; Stop 01/31/18 at 01:08; Status DC Info (PHARMACY MONITORING -- do not chart) 1 each PRN DAILY PRN MC SEE COMMENTS ; Start 01/30/18 at 13:15; Stop 01/30/18 at 13:17; Status DC Info (PHARMACY MONITORING -- do not chart) 1 each PRN DAILY PRN MC SEE COMMENTS ; Start 01/30/18 at 13:15; Stop 02/04/18 at 07:27; Status DC Lidocaine HCl (Lidocaine 1% 50ml Vial) 50 ml 1X ONCE INJ ; Start 01/30/18 at 15 :45; Stop 01/30/18 at 15:46; Status DC Vancomycin HCl 500 mg/Sodium Chloride 100 ml @ 100 mls/hr ONCE ONCE IV Last administered on 01/30/18at 20:49; Start 01/30/18 at 18:00; Stop 01/30/18 at 18:59 ; Status DC Cefazolin Sodium 1 gm/Sodium Chloride 500 ml @ 500 mls/hr 1X ONCE IRR ; Start 02/01/18 at 06:00; Stop 02/01/18 at 06:59; Status DC Lidocaine HCl (Xylocaine-Mpf 2% Vial) 2 ml STK-MED ONCE .ROUTE ; Start 01/28/18 at 12:00; Stop 02/01/18 at 08:30; Status DC Darbepoetin Mauricio (Aranesp) 60 mcg [id number] SQ Last administered on 02/01/18at 21 :38; Start 02/01/18 at 21:00 Cellulose (Surgicel Fibrillar 1x2) 1 each STK-MED ONCE .ROUTE ; Start 02/01/18 at 12:05; Stop 02/01/18 at 13:06; Status DC Lidocaine HCl (Xylocaine 1% Pf 30ml Vial) 30 ml 1X ONCE INJ ; Start 02/01/18 at 13:15; Stop 02/01/18 at 13:18; Status DC Sodium Chloride 1,000 ml @ 75 mls/hr [id number] IV Last administered on at 00:15; Start 02/01/18 at 13:45; Stop 02/02/18 at 16:43; Status DC Morphine Sulfate (Morphine Sulfate) 10 mg STK-MED ONCE .ROUTE ; Start 02/01/18 at 14:24; Stop 02/01/18 at 14:25; Status DC Midazolam HCl (Versed) 2 mg STK-MED ONCE .ROUTE ; Start 02/01/18 at 14:24; Stop 02/01/18 at 14:25; Status DC Midazolam HCl (Versed) 2 mg STK-MED ONCE .ROUTE ; Start 02/01/18 at 14:25; Stop 02/01/18 at 14:26; Status DC Propofol 20 ml @ As Directed STK-MED ONCE IV ; Start 02/01/18 at 14:25; Stop at 14:26; Status DC Dexamethasone Sodium Phosphate (Decadron) 20 mg STK-MED ONCE .ROUTE ; Start 02/01/18 at 14:25; Stop 02/01/18 at 14:26; Status DC Ondansetron HCl (Zofran) 4 mg STK-MED ONCE .ROUTE ; Start 02/01/18 at 14:25; Stop 02/01/18 at 14:26; Status DC Bacitracin (Bacitracin) 50,000 unit STK-MED ONCE IRR Last administered on at 14:55; Start 02/01/18 at 13:32; Stop 02/01/18 at 14:32; Status DC Vancomycin HCl 500 mg/Sodium Chloride 100 ml @ 100 mls/hr [id number] IV Last administered on 02/02/18at 16:15; Start 02/02/18 at 16:00 Sodium Chloride 1,000 ml @ 1,000 mls/hr Q1H PRN IV hypotension; Start 02/02/18 at 09:39; Stop 02/02/18 at 15:38; Status DC Albumin Human 200 ml @ 200 mls/hr 1X PRN PRN IV Hypotension; Start 02/02/18 at 09:45; Stop 02/02/18 at 15:44; Status DC Sodium Chloride 1,000 ml @ 400 mls/hr Q2H30M PRN IV PATENCY; Start 02/02/18 at 09:39; Stop 02/02/18 at 21:38; Status DC Info (PHARMACY MONITORING -- do not chart) 1 each PRN DAILY PRN MC SEE COMMENTS ; Start 02/02/18 at 09:45; Stop 02/04/18 at 07:28; Status DC Info (PHARMACY MONITORING -- do not chart) 1 each PRN DAILY PRN MC SEE COMMENTS ; Start 02/02/18 at 09:45; Status UNV Prochlorperazine Edisylate (Compazine) 10 mg PRN Q6HRS PRN IV NAUSEA/VOMITING 2ND CHOICE Last administered on 02/02/18at 23:23; Start 02/02/18 at 11:30 Vancomycin HCl (Vanco Per Pharmacy) 1 each PRN DAILY PRN MC SEE COMMENTS Last administered on 02/02/18at 13:57; Start 02/02/18 at 14:00 Famotidine (Pepcid Vial) 20 mg DAILY IVP Last administered on 02/03/18at 10:48 ; Start 02/03/18 at 10:00 Alteplase, Recombinant (Cathflo) 2 mg 1X ONCE INT CAT Last administered on 03/14at 02:56; Start 02/04/18 at 03:00; Stop 02/04/18 at 03:01; Status DC Sodium Chloride 1,000 ml @ 1,000 mls/hr Q1H PRN IV hypotension; Start at 07:15; Stop 02/04/18 at 13:14 Albumin Human 200 ml @ 200 mls/hr 1X PRN PRN IV Hypotension; Start 02/04/18 at 07:15; Stop 02/04/18 at 13:14 Acetaminophen (Tylenol) 500 mg 1X PRN PRN PO MILD PAIN / TEMP; Start 02/04/18 at 07:15; Stop 02/05/18 at 07:14 Diphenhydramine HCl (Benadryl) 25 mg 1X PRN PRN IV ITCHING; Start 02/04/18 at 07:15; Stop 02/05/18 at 07:14 Diphenhydramine HCl (Benadryl) 25 mg 1X PRN PRN IV ITCHING; Start 02/04/18 at 07:15; Stop 02/05/18 at 07:14 Sodium Chloride 1,000 ml @ 400 mls/hr Q2H30M PRN IV PATENCY; Start 02/04/18 at 07:15; Stop 02/04/18 at 19:14 Info (PHARMACY MONITORING -- do not chart) 1 each PRN DAILY PRN MC SEE COMMENTS ; Start 02/04/18 at 07:15 Lidocaine HCl (Xylocaine-Mpf 2% Vial) 2 ml STK-MED ONCE .ROUTE ; Start at 09:43; Stop 02/04/18 at 09:44; Status DC Active Scripts Active Percocet 10-325 Mg Tablet (Oxycodone/Acetaminophen) 1 Each Tablet 1 Tab PO Q4HRS Brilinta (Ticagrelor) 90 Mg Tablet 90 Mg PO BID 30 Days Morphine Sulfate Er (Morphine Sulfate) 15 Mg Tablet.er 15 Mg PO BID Reported Brilinta (Ticagrelor) 90 Mg Tablet 90 Mg PO BID Lidocaine 1 Each Adh..patch 1 Each TP PRN DAILY PRN Calcitriol 0.25 Mcg Capsule 1 Cap PO DAILY Tegretol (Carbamazepine) 200 Mg Tablet 1 Tab PO BID Tramadol Hcl 50 Mg Tablet 50 Mg PO Q4HRS PRN Lantus Solostar (Insulin Glargine,Hum.rec.anlog) 100 Unit/1 Ml Insuln.pen 22 Unit SQ QHS Diflucan (Fluconazole) 100 Mg Tablet 100 Mg PO PRN Carvedilol 3.125 Mg Tablet 12.5 Mg PO BID Erythromycin (Erythromycin Base) 250 Mg Capsule.dr 250 Mg PO BID Cardizem Cd (Diltiazem Hcl) 180 Mg Cap.er.24h 120 Mg PO DAILY Amiodarone Hcl 200 Mg Tablet 1 Tab PO DAILY Nystatin 15 Gm Powder 1 Susanna TP PRN BID PRN Proventil Hfa Inhaler (Albuterol Sulfate) 6.7 Gm Hfa.aer.ad 2 Puff IH BID PRN Zofran (Ondansetron Hcl) 4 Mg Tablet 4 Mg PO Q6-8HRS PRN Nephro-Shabbir Tablet (Folic Acid/Vitamin B Comp W-C) 0.8 Mg Tablet 1 Tab PO DAILY Tricor (Fenofibrate Nanocrystallized) 145 Mg Tablet 1 Tab PO HS Lipitor (Atorvastatin Calcium) 80 Mg Tablet 80 Mg PO HS Niacin 500 Mg Tablet 500 Mg PO HS Novolog (Insulin Aspart) 100 Unit/1 Ml Cartridge 0 SQ TIDAC sliding scale Aspirin 325 Mg Tablet 325 Mg PO DAILY Furosemide 80 Mg Tablet 80 Mg PO BID Docusate Sodium 100 Mg Capsule 1 Cap PO PRN PRN Nitrostat (Nitroglycerin) 0.4 Mg Tab.subl 0.4 Mg SL PRN Q5MIN PRN Take as needed for chest pain Vitals/I & O Vital Sign - Last 24 Hours 02/03/18 02/03/18 02/03/18 02/03/18 10:48 10:49 10:49 10:50 Pulse 74 74 B/P (MAP) 154/63 154/63 O2 Delivery Room Air Room Air 02/03/18 02/03/18 02/03/18 02/03/18 10:51 11:00 12:28 12:30 Temp 97.7 97.7 Pulse 74 86 Resp 18 B/P (MAP) 154/63 160/61 (94) Pulse Ox 100 O2 Delivery Room Air Room Air Room Air 10/1002/03/18 02/03/18 02/03/18 15:00 15:49 16:13 18:03 Temp 97.7 97.7 Pulse 87 Resp 18 B/P (MAP) 165/54 (91) Pulse Ox 98 O2 Delivery Room Air Nasal Cannula Nasal Cannula Nasal Cannula O2 Flow Rate 2.0 2.0 2.0 02/03/18 02/03/18 02/03/18 02/03/18 18:05 19:00 20:00 20:41 Temp 97.9 97.9 Pulse 87 81 Resp 18 B/P (MAP) 165/54 132/59 (83) Pulse Ox 100 O2 Delivery Room Air Nasal Cannula Nasal Cannula O2 Flow Rate 2.0 3.0 02/03/18 02/03/18 02/04/18 02/04/18 20:50 23:00 03:00 03:40 Temp 97.7 97.5 97.7 97.5 Pulse 73 79 Resp 18 18 B/P (MAP) 163/60 (94) 158/49 (85) Pulse Ox 100 100 O2 Delivery Nasal Cannula Room Air Room Air Nasal Cannula O2 Flow Rate 3.0 3.0 02/04/18 02/04/18 02/04/18 07:15 08:35 09:15 Temp 97.3 97.3 Pulse 76 Resp 18 B/P (MAP) 119/45 (69) Pulse Ox 99 O2 Delivery Room Air Room Air Nasal Cannula O2 Flow Rate 2.0 Intake and Output 02/03/18 02/03/18 02/04/18 15:00 23:00 07:00 Intake Total 600 ml 1000 ml 1450 ml Output Total 0 ml Balance 600 ml 1000 ml 1450 ml MARY GRACE SANDOVAL APRN Feb 04, 2018 10:12
--- NOTE | 2018-02-04 11:24 | PDOC ---
Infectious Disease Note Subjective: Subjective Pt seen in dialysis unit, comfortable cont to have nausea awaiting egd vision is imroving Denies F/C/ abdo pain /D/SOA had a small bm today ROS: ROS Negative except for above. Vital Signs: Vital Signs Vital Signs Date Time Temp Pulse Resp B/P (MAP) Pulse Ox O2 Delivery O2 Flow Rate FiO2 02/04/18 09:15 Nasal Cannula 2.0 02/04/18 07:15 97.3 76 18 119/45 (69) 99 97.3 Physical Exam: PHYSICAL EXAM GENERAL: Propped up in bed, alert, in NAD HEENT: Oral cavity clear NECK: Supple LUNGS: Clear. HEART: S1, S2 regular. ABDOMEN: Soft, NT EXTREMITIES: Left BKA. RLE edema with wound vac in place . NEUROLOGIC: Alert and responds appropriately Tunnelled [facility] (01/29) Medications: Inpatient Meds: Current Medications Medications (Trade) Dose Ordered Sig/Martin Start Time Stop Time Status Last Admin Dose Admin Acetaminophen (Tylenol) 500 mg 1X PRN PRN 02/04/18 07:15 02/05/18 07:14 Albumin Human 200 ml @ 200 mls/hr 1X PRN PRN 02/04/18 07:15 02/04/18 13:14 Albuterol Sulfate (Ventolin Neb Soln) 2.5 mg PRN BID PRN 01/27/18 12:30 01/27/18 21:59 2.5 MG Alteplase, Recombinant (Cathflo) 2 mg 1X ONCE 02/04/18 03:00 02/04/18 03:01 DC 02/04/18 02:56 2 MG Amiodarone HCl (Cordarone) 200 mg DAILY 01/27/18 12:30 02/03/18 10:49 200 MG Aspirin (Anthony Aspirin) 325 mg DAILY 01/27/18 12:30 01/28/18 14:26 DC 01/28/18 09:13 325 MG Aspirin (Ecotrin) 81 mg [id number] 01/29/18 08:00 02/03/18 10:50 81 MG Atorvastatin Calcium (Lipitor) 80 mg QHS 01/27/18 21:00 02/03/18 20:50 80 MG Bacitracin (Bacitracin) 50,000 unit STK-MED ONCE 02/01/18 13:32 02/01/18 14:32 DC 02/01/18 14:55 50,000 UNIT Bacitracin 37407 unit/Sodium Chloride 3,000 ml @ 0 mls/hr 1X ONCE 01/27/18 13:15 01/27/18 13:16 Cancel Calcitriol (Rocaltrol) 0.25 mcg DAILY 01/27/18 12:30 02/03/18 10:50 0.25 MCG Carbamazepine (TEGretol) 200 mg BID 01/27/18 12:30 02/03/18 20:50 200 MG Carvedilol (Coreg) 12.5 mg BIDWMEALS 01/27/18 12:30 02/03/18 18:05 12.5 MG Cefazolin Sodium 1 gm/Sodium Chloride 500 ml @ 500 mls/hr 1X ONCE 02/01/18 06:00 02/01/18 06:59 DC Cefepime HCl (Maxipime) 1 gm Q24H 01/28/18 10:00 02/03/18 10:54 1 GM Cefepime HCl 1 gm/ Dextrose 50 ml @ 100 mls/hr DAILY 01/29/18 09:00 UNV Cellulose (Surgicel Fibrillar 1x2) 1 each STK-MED ONCE 02/01/18 12:05 02/01/18 13:06 DC Clopidogrel Bisulfate (Plavix) 75 mg DAILYWBKFT 01/28/18 08:00 01/28/18 14:28 DC 01/28/18 09:13 75 MG Darbepoetin Mauricio (Aranesp) 60 mcg WEEKLYHS 02/01/18 21:00 02/01/18 21:38 60 MCG Dexamethasone Sodium Phosphate (Decadron) 20 mg STK-MED ONCE 02/01/18 14:25 02/01/18 14:26 DC Dextrose (Dextrose 50%-Water Syringe) 12.5 gm PRN Q15MIN PRN 01/28/18 14:45 Diltiazem HCl (Cardizem 24hr Cd) 120 mg DAILY 01/27/18 12:30 02/03/18 10:51 120 MG Diphenhydramine HCl (Benadryl) 25 mg 1X PRN PRN 02/04/18 07:15 02/05/18 07:14 Docusate Sodium (Colace) 100 mg PRN DAILY PRN 02/04/18 10:30 Erythromycin (E-Mycin) 250 mg BID 01/27/18 21:00 02/03/18 20:49 250 MG Famotidine (Pepcid Vial) 20 mg DAILY 02/03/18 10:00 02/03/18 10:48 20 MG Fenofibrate (Lofibra) 134 mg QHS 01/27/18 21:00 02/03/18 20:51 134 MG Fentanyl Citrate (Fentanyl 2ml Vial) 50 mcg PRN Q5MIN PRN 01/27/18 10:45 01/27/18 18:00 DC Furosemide (Lasix) 80 mg BID92 01/27/18 12:30 02/03/18 10:52 80 MG Gentamicin Sulfate 235 mg/ Dextrose 105.875 ml @ 105.875 mls/hr 1X ONCE 01/27/18 16:00 01/27/18 16:59 DC 01/27/18 19:56 105.875 MLS/HR Heparin Sodium (Porcine) (Hep Lock Adult) 500 unit 1X ONCE 01/29/18 14:00 01/29/18 14:17 DC 01/29/18 14:04 500 UNIT Hydralazine HCl (Apresoline) 10 mg PRN TID PRN 01/28/18 14:45 Hydromorphone HCl (Dilaudid) 0.5 mg PRN Q10MIN PRN 02/01/18 07:00 02/02/18 06:59 DC 02/01/18 16:08 0.5 MG Influenza Virus Vaccine (Afluria Trivalent [id number] Syringe) 0.5 ml ONCE ONCE 01/27/18 09:00 01/27/18 09:01 DC 01/27/18 09:00 0.5 ML Info (PHARMACY MONITORING -- do not chart) 1 each PRN DAILY PRN 02/04/18 07:15 Insulin Glargine (Lantus) 22 units QHS 01/27/18 21:00 02/03/18 21:01 2 UNITS Insulin Human Lispro (HumaLOG) 0-5 UNITS TIDWMEALS 01/28/18 17:00 02/04/18 08:47 5 UNITS Lactobacillus Rhamnosus (Culturelle) 1 cap BID 01/27/18 21:00 02/03/18 20:50 1 CAP Lidocaine (Lidoderm) 1 patch PRN DAILY PRN 01/27/18 09:00 Lidocaine HCl (Lidocaine 1% 50ml Vial) 50 ml 1X ONCE 01/30/18 15:45 01/30/18 15:46 DC Lidocaine HCl (Xylocaine 1% Pf 30ml Vial) 30 ml 1X ONCE 02/01/18 13:15 02/01/18 13:18 DC Lidocaine HCl (Xylocaine-Mpf 1% 2ml Vial) 2 ml PRN 1X PRN 02/01/18 07:00 02/02/18 06:59 DC Lidocaine HCl (Xylocaine-Mpf 2% Vial) 2 ml STK-MED ONCE 02/04/18 09:43 02/04/18 09:44 DC Lidocaine/ Epinephrine (LIDOCAINE 1%-EPI 1:100,000 Multi-Dose) 8 ml 1X ONCE 01/29/18 14:00 01/29/18 14:17 DC 01/29/18 14:01 8 ML Metronidazole 100 ml @ 100 mls/hr Q12HR 01/28/18 10:00 02/03/18 10:49 DC 02/02/18 21:00 100 MLS/HR Midazolam HCl (Versed) 2 mg STK-MED ONCE 02/01/18 14:25 02/01/18 14:26 DC Miscellaneous (Lidoderm Patch Removal) 1 ea QHS 01/27/18 21:00 01/29/18 21:00 1 EA Morphine Sulfate (Morphine Sulfate) 10 mg STK-MED ONCE 02/01/18 14:24 02/01/18 14:25 DC Morphine Sulfate (Ms Contin) 15 mg BID 01/27/18 12:30 02/04/18 08:35 15 MG Niacin (Slo-Niacin) 500 mg QHS 01/27/18 21:00 02/03/18 20:50 500 MG Nitroglycerin (Nitrostat) 0.4 mg PRN Q5MIN PRN 01/27/18 12:00 Non-Formulary Medication (Albuterol Sulfate (Proventil Hfa Inhaler)) 2 puff BID PRN 01/27/18 12:00 UNV Non-Formulary Medication (Fluconazole (Diflucan)) 100 mg PRN 01/27/18 12:00 UNV Nystatin (Nystop) 1 erich PRN BID PRN 01/27/18 12:00 Ondansetron HCl (Zofran Odt) 4 mg PRN Q6HRS PRN 01/27/18 12:15 Ondansetron HCl (Zofran) 4 mg STK-MED ONCE 02/01/18 14:25 02/01/18 14:26 DC Oxycodone/ Acetaminophen (Percocet 10325) 1 tab PRN Q4HRS PRN 01/29/18 07:45 02/03/18 10:48 1 TAB Pharmacy Consult (C.diff Med Screen By Rx) 1 each 1X ONCE 01/27/18 01:00 01/27/18 01:01 Cancel Prochlorperazine Edisylate (Compazine) 10 mg PRN Q6HRS PRN 02/02/18 11:30 02/02/18 23:23 10 MG Promethazine HCl (Phenergan Im) 12.5 mg 1X ONCE 01/29/18 12:45 01/29/18 12:46 DC Promethazine HCl (Phenergan Supp) 12.5 mg 1X ONCE 01/29/18 12:15 01/29/18 12:36 DC Propofol 20 ml @ As Directed STK-MED ONCE 02/01/18 14:25 02/01/18 14:26 DC Ringer's Solution 1,000 ml @ 30 mls/hr Q24H 02/01/18 07:00 02/01/18 18:59 DC Sevoflurane (Ultane) 30 ml STK-MED ONCE 01/27/18 13:11 01/27/18 13:12 DC Sodium Chloride 1,000 ml @ 400 mls/hr Q2H30M PRN 02/04/18 07:15 02/04/18 19:14 Sodium Chloride (Normal Saline Flush) 10 ml 1X PRN PRN 01/30/18 13:15 01/31/18 13:14 DC Ticagrelor (Brilinta) 90 mg BID 01/28/18 21:00 02/03/18 20:50 90 MG Tramadol HCl (Ultram) 50 mg PRN Q4HRS PRN 01/27/18 12:00 Vancomycin HCl (Vanco Per Pharmacy) 1 each PRN DAILY PRN 02/02/18 14:00 02/02/18 13:57 1 EACH Vancomycin HCl (Vancomycin Random Level) 1 each 1X ONCE 01/28/18 05:00 01/28/18 05:01 DC 01/28/18 05:00 1 EACH Vancomycin HCl 1.75 gm/Sodium Chloride 500 ml @ 250 mls/hr 1X ONCE 01/26/18 23:00 01/27/18 00:59 DC 01/26/18 23:53 250 MLS/HR Vancomycin HCl 500 mg/Sodium Chloride 100 ml @ 100 mls/hr QTUTHSA 02/02/18 16:00 02/02/18 16:15 100 MLS/HR Vitamin B Complex/ Vitamin C (Melly-Shabbir) 1 tab DAILY 01/27/18 12:30 02/03/18 10:49 1 TAB Labs: Lab Laboratory Tests Test 02/03/18 17:51 02/03/18 20:18 02/04/18 03:35 02/04/18 07:45 Glucose (Fingerstick) 155 mg/dL (70-99) 164 mg/dL (70-99) 343 mg/dL (70-99) White Blood Count 16.3 x10^3/uL (4.0-11.0) Red Blood Count 2.34 x10^6/uL (3.50-5.40) Hemoglobin 7.4 g/dL (12.0-15.5) Hematocrit 22.5 % (36.0-47.0) Mean Corpuscular Volume 96 fL (79-100) Mean Corpuscular Hemoglobin 32 pg (25-35) Mean Corpuscular Hemoglobin Concent 33 g/dL (31-37) Red Cell Distribution Width 17.2 % (11.5-14.5) Platelet Count 347 x10^3/uL (140-400) Neutrophils (%) (Auto) 82 % (31-73) Lymphocytes (%) (Auto) 11 % (24-48) Monocytes (%) (Auto) 6 % (0-9) Eosinophils (%) (Auto) 1 % (0-3) Basophils (%) (Auto) 1 % (0-3) Neutrophils # (Auto) 13.4 x10^3uL (1.8-7.7) Lymphocytes # (Auto) 1.7 x10^3/uL (1.0-4.8) Monocytes # (Auto) 1.0 x10^3/uL (0.0-1.1) Eosinophils # (Auto) 0.1 x10^3/uL (0.0-0.7) Basophils # (Auto) 0.1 x10^3/uL (0.0-0.2) Sodium Level 139 mmol/L (136-145) Potassium Level 4.8 mmol/L (3.5-5.1) Chloride Level 101 mmol/L (98-107) Carbon Dioxide Level 26 mmol/L (21-32) Anion Gap 12 (6-14) Blood Urea Nitrogen 56 mg/dL (7-20) Creatinine 4.8 mg/dL (0.6-1.0) Estimated GFR (Cockcroft-Gault) 9.5 BUN/Creatinine Ratio 12 (6-20) Glucose Level 328 mg/dL (70-99) Calcium Level 7.9 mg/dL (8.5-10.1) Total Bilirubin 0.3 mg/dL (0.2-1.0) Aspartate Amino Transf (AST/SGOT) 12 U/L (15-37) Alanine Aminotransferase (ALT/SGPT) 10 U/L (14-59) Alkaline Phosphatase 119 U/L (46-116) Total Protein 4.9 g/dL (6.4-8.2) Albumin 1.7 g/dL (3.4-5.0) Albumin/Globulin Ratio 0.5 (1.0-1.7) Micro Micro 01/26/18 Blood Culture - Preliminary, Resulted NO GROWTH AFTER 4 DAYS 01/27 ANAEROBIC RES 1 Preliminary No anaerobes recovered in 24 hours. AEROBIC RES 1 Final Klebsiella pneumoniae MICS are expressed in micrograms per mL Antibiotic RSLT#1 RSLT#2 Amoxicillin/Clavulanic Acid S<=2 Ampicillin R>=32 Cefepime S<=0.12 Ceftriaxone S<=0.25 Cefuroxime S =4 Ciprofloxacin S =1 Ertapenem S<=0.12 Gentamicin S<=1 Imipenem S<=0.25 Levofloxacin S =1 Meropenem S<=0.25 Piperacillin/Tazobactam S<=4 Tetracycline S<=1 Tobramycin S<=1 Trimethoprim/Sulfa S<=20 Objective: Assessment: Right leg surgery site infection s/p excisional debridement; muscle flap & wound VAC placement on 01/27 C/S + . Klebsiella (R amp) and G/S GPCs ,latter ID still pending S/P repeat I and D on 02/01 vascular planning for wound vac change later this week and early next week Leucocytosis ? reactive from gi bleed PAD s/p leg bypass on 01/06 ESRD Multiple antibiotic allergies Amiodarone therapy h/o VRE, MRSA, c. diff Nausea and vomiting awaiting egd Plan: Plan of Care DC Cefepime and Vanc Start ceftriaxone off Flagyl 02/03 s/p gent x 1 on 01/27 Probiotics f/u cultures egd today Pain management per primary Supportive care GRACIELA LÓPEZ MD Feb 04, 2018 11:23
--- NOTE | 2018-02-04 11:28 | PDOC ---
Renal-Progress Notes Subjective Notes Notes NO PAIN History of Present Illness Hx of present illness STABLE Vitals Vitals Vital Signs Date Time Temp Pulse Resp B/P (MAP) Pulse Ox O2 Delivery O2 Flow Rate FiO2 02/04/18 09:15 Nasal Cannula 2.0 02/04/18 07:15 97.3 76 18 119/45 (69) 99 97.3 Weight Weight [ ] I.O. Intake and Output Intake and Output 02/04/18 07:00 Intake Total 3050 ml Output Total 0 ml Balance 3050 ml Intake Oral 3050 ml Output Urine Total 0 ml Labs Labs Laboratory Tests Test 02/03/18 17:51 02/03/18 20:18 02/04/18 03:35 02/04/18 07:45 Glucose (Fingerstick) 155 mg/dL (70-99) 164 mg/dL (70-99) 343 mg/dL (70-99) White Blood Count 16.3 x10^3/uL (4.0-11.0) Red Blood Count 2.34 x10^6/uL (3.50-5.40) Hemoglobin 7.4 g/dL (12.0-15.5) Hematocrit 22.5 % (36.0-47.0) Mean Corpuscular Volume 96 fL (79-100) Mean Corpuscular Hemoglobin 32 pg (25-35) Mean Corpuscular Hemoglobin Concent 33 g/dL (31-37) Red Cell Distribution Width 17.2 % (11.5-14.5) Platelet Count 347 x10^3/uL (140-400) Neutrophils (%) (Auto) 82 % (31-73) Lymphocytes (%) (Auto) 11 % (24-48) Monocytes (%) (Auto) 6 % (0-9) Eosinophils (%) (Auto) 1 % (0-3) Basophils (%) (Auto) 1 % (0-3) Neutrophils # (Auto) 13.4 x10^3uL (1.8-7.7) Lymphocytes # (Auto) 1.7 x10^3/uL (1.0-4.8) Monocytes # (Auto) 1.0 x10^3/uL (0.0-1.1) Eosinophils # (Auto) 0.1 x10^3/uL (0.0-0.7) Basophils # (Auto) 0.1 x10^3/uL (0.0-0.2) Sodium Level 139 mmol/L (136-145) Potassium Level 4.8 mmol/L (3.5-5.1) Chloride Level 101 mmol/L (98-107) Carbon Dioxide Level 26 mmol/L (21-32) Anion Gap 12 (6-14) Blood Urea Nitrogen 56 mg/dL (7-20) Creatinine 4.8 mg/dL (0.6-1.0) Estimated GFR (Cockcroft-Gault) 9.5 BUN/Creatinine Ratio 12 (6-20) Glucose Level 328 mg/dL (70-99) Calcium Level 7.9 mg/dL (8.5-10.1) Total Bilirubin 0.3 mg/dL (0.2-1.0) Aspartate Amino Transf (AST/SGOT) 12 U/L (15-37) Alanine Aminotransferase (ALT/SGPT) 10 U/L (14-59) Alkaline Phosphatase 119 U/L (46-116) Total Protein 4.9 g/dL (6.4-8.2) Albumin 1.7 g/dL (3.4-5.0) Albumin/Globulin Ratio 0.5 (1.0-1.7) Micro Micro Microbiology 01/26/18 Blood Culture - Final, Complete NO GROWTH AFTER 5 DAYS 01/27/18 Anaerobic/Aerobic Culture - Final, Complete 01/27/18 Anaerobic Culture Result 1 (ROSALIND) - Final, Complete 01/27/18 Aerobic Culture - Final, Complete 01/27/18 Aerobic Culture Result 1 (ROSALIND) - Final, Complete 01/27/18 Antimicrobic Susceptibility - Final, Complete 01/27/18 Gram Stain - Final, Complete 01/27/18 Gram Stain Result 1 (ROSALIND) - Final, Complete 01/27/18 Gram Stain Result 2 (ROSALIND) - Final, Complete Review of Systems Constitutional: yes: weakness, alert, oriented Ears/Nose/Throat: Yes: no symptom reported Eyes: Yes: no symptom reported Pulmonary: Yes no symptom reported Cardiovascular: Yes no symptom reported Gastrointestional: Yes: no symptom reported Genitourinary: Yes: no symptom reported Musculoskeletal: Yes: leg pain Skin: Yes color change Psychiatric/Neurological: Yes: no symptom reported Physical Exam General Appearance: no apparent distress Respiratory: bilateral CTA Heart: S1S2 Abdomen: soft, bowel sounds present Genitourinary: bladder flat Extremities: pulses present Assessment Assessment IMP ESRD-ON PD BUT HAS FUNCTIONING RIGHT ARM AVF ANEMIA DM II HTN PAD R LE CELLULITIS PLAN HD TODAY UF TO DW BACK TO PD WHEN HOME ANTIBIOTICS WOUND CARE WILL FOLLOW CHARLY ZAVALA MD Feb 04, 2018 11:28
[2018-02-04] MEDS ORDERED: cefTRIAXone SODIUM 2 GM in IV DEXTROSE 5% 100ML 100 ML IV SCH (13:00)
[2018-02-04] MEDS: FUROSEMIDE 80 MG TABLET. PO SCH ×2 (14:00→14:21)
[2018-02-04] MEDS: ERYTHROMYCIN BASE 250 MG TABLET PO SCH ×2 (14:19→22:00)
[2018-02-04] MEDS: LACTOBACILLUS RHAMNOSUS GG 1 CAPSULE. PO SCH ×2 (14:19→22:00)
[2018-02-04] MEDS: TICAGRELOR 90 MG TABLET. PO SCH ×2 (14:20→22:00)
[2018-02-04] MEDS: FOLIC/VIT B COMP W-C (RENAL) TABLET. PO SCH (14:20)
[2018-02-04] MEDS: CALCITRIOL 0.25 MCG CAPSULE. PO SCH (14:20)
[2018-02-04] MEDS: CARVEDILOL 12.5 MG TABLET. PO SCH ×2 (14:21→18:12)
[2018-02-04] MEDS: carBAMazepine 200 MG TABLET PO SCH ×2 (14:21→22:00)
[2018-02-04] MEDS: AMIODARONE HCL 200 MG TABLET. PO SCH (14:24)
[2018-02-04] MEDS: FAMOTIDINE 20 MG/2 ML VIAL IVP SCH (14:25)
[2018-02-04 15:00] VITALS: BP 142/56
--- NOTE | 2018-02-04 16:09 | PDOC2 ---
NEUROLOGY CONSULT Date of Admission Date of Admission DATE: 02/04/18 TIME: 15:58 Reason for Consult Reason for Consult: Loss of vision Referring Physician Referring Physician: Dr. Cheatham Source Source: Caregiver, Chart review, Patient History of Present Illness History of Present Illness The patient is a 52-year-old right-handed female admitted for right femoral popliteal bypass surgery which later required wound debridement. She has noticed blurred vision in both eyes, maybe worse on the right, for the past 2 weeks. 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 Yesterday morning she noticed loss of vision in both eyes. This was painless although there may be a dull ache in the left eye at times. Ophthalmology was called but they do not come to the hospital anymore. The patient denies any prior history of stroke, seizure, head injury, numbness, weakness, dysarthria, dysphagia, or diplopia. Past Medical History Cardiovascular: AFIB, CAD, CHF, HTN, IA, Hyperlipidemia, Other (heart murmur, peripheral vascular disease, deep venous thrombosis) Pulmonary: Asthma, Bronchitis, COPD, Pneumonia, Other (sleep apnea) CENTRAL NERVOUS SYSTEM: Periperal neuropathy GI: Irritable bowel disease, Peptic Ulcer disease, Other (C. difficile) Psych: Anxiety, Depression Musculoskeletal: low back pain (and neck pain), Osteoarthritis Rheumatologic: Fibromyalgia Renal/: Chronic renal failure (dialysis) Endocrine: Diabetes Dermatology: Other (various wounds, MRSA, VRE) Past Surgical History Past Surgical History: CABG, Cataract Removal, Hysterectomy, Other (Arnold- Chiari malformation repair, left below the knee application, right femoropopliteal bypass, arteriovenous shunt, coronary stent, right second and third toes amputations, arthroscopic knee surgery) Family History Family History: Cancer, CAD, DM Social History Social History , quit smoking, rare alcohol, disabled, gets around in a wheelchair Current Medications Current Medications Current Medications Hydromorphone HCl (Dilaudid) 2 mg 1X ONCE IV Last administered on 01/26/18at 22 :39; Start 01/26/18 at 22:00; Stop 01/26/18 at 22:01; Status DC Vancomycin HCl (Vanco Per Pharmacy) 1 each PRN DAILY PRN MC SEE COMMENTS Last administered on 01/31/18at 17:20; Start 01/26/18 at 22:45; Stop 02/01/18 at 11:41 ; Status DC Vancomycin HCl 1.75 gm/Sodium Chloride 500 ml @ 250 mls/hr 1X ONCE IV Last administered on 01/26/18at 23:53; Start 01/26/18 at 23:00; Stop 01/27/18 at 00:59 ; Status DC Ondansetron HCl (Zofran) 4 mg PRN Q8HRS PRN IV NAUSEA/VOMITING 1ST CHOICE; Start 01/26/18 at 23:15; Stop 01/27/18 at 23:14; Status DC Sodium Chloride 1,000 ml @ 75 mls/hr [id number] IV Last administered on at 00:39; Start 01/26/18 at 23:30; Stop 01/27/18 at 23:29; Status DC Pharmacy Consult (C.diff Med Screen By Rx) 1 each 1X ONCE MC ; Start 01/27/18 at 01:00; Stop 01/27/18 at 01:01; Status Cancel Influenza Virus Vaccine (Afluria Trivalent [id number] Syringe) 0.5 ml ONCE ONCE VAX IM Last administered on 01/27/18at 09:00; Start 01/27/18 at 09:00; Stop 01/27/18 at 09:01; Status DC Vancomycin HCl (Vancomycin Random Level) 1 each 1X ONCE MC Last administered on 01/28/18at 05:00; Start 01/28/18 at 05:00; Stop 01/28/18 at 05:01; Status DC Hydromorphone HCl (Dilaudid) 1 mg PRN Q3HRS PRN IV SEVERE PAIN Last administered on 02/04/18at 14:25; Start 01/27/18 at 03:30 Ondansetron HCl (Zofran) 4 mg PRN Q6HRS PRN IV NAUSEA/VOMITING; Start 01/27/18 at 10:45; Stop 01/27/18 at 18:00; Status DC Fentanyl Citrate (Fentanyl 2ml Vial) 25 mcg PRN Q5MIN PRN IV MILD PAIN; Start 01/27/18 at 10:45; Stop 01/27/18 at 18:00; Status DC Fentanyl Citrate (Fentanyl 2ml Vial) 50 mcg PRN Q5MIN PRN IV MODERATE TO SEVERE PAIN; Start 01/27/18 at 10:45; Stop 01/27/18 at 18:00; Status DC Morphine Sulfate (Morphine Sulfate) 1 mg PRN Q10MIN PRN IV SEVERE PAIN Last administered on 01/27/18at 16:28; Start 01/27/18 at 10:45; Stop 01/27/18 at 18:00 ; Status DC Ringer's Solution 1,000 ml @ 30 mls/hr Q24H IV Last administered on 01/27/18at 10:35; Start 01/27/18 at 10:35; Stop 01/27/18 at 19:36; Status DC Lidocaine HCl (Xylocaine-Mpf 1% 2ml Vial) 2 ml 1X PRN PRN ID IV START; Start 01/27/18 at 10:45; Stop 01/27/18 at 18:00; Status DC Hydromorphone HCl (Dilaudid) 0.5 mg PRN Q10MIN PRN IV SEV PAIN, Second choice Last administered on 01/27/18at 15:59; Start 01/27/18 at 10:45; Stop 01/27/18 at 18:00; Status DC Prochlorperazine Edisylate (Compazine) 5 mg PACU PRN PRN IV NAUSEA, MRX1; Start 01/27/18 at 10:45; Stop 01/27/18 at 18:00; Status DC Amiodarone HCl (Cordarone) 200 mg DAILY PO Last administered on 02/04/18at 14: 24; Start 01/27/18 at 12:30 Aspirin (Anthony Aspirin) 325 mg DAILY PO Last administered on 01/28/18at 09:13; Start 01/27/18 at 12:30; Stop 01/28/18 at 14:26; Status DC Carbamazepine (TEGretol) 200 mg BID PO Last administered on 02/04/18 14:21; Start 01/27/18 at 12:30 Carvedilol (Coreg) 12.5 mg BIDWMEALS PO Last administered on 02/04/18 14:21; Start 01/27/18 at 12:30 Vitamin B Complex/ Vitamin C (Melly-Shabbir) 1 tab DAILY PO Last administered on at 14:20; Start 01/27/18 at 12:30 Furosemide (Lasix) 80 mg [id number] PO Last administered on 02/04/18 14:21; Start 01/27/18 at 12:30 Insulin Glargine (Lantus) 22 units QHS SQ Last administered on 02/03/18 21:01 ; Start 01/27/18 at 21:00 Morphine Sulfate (Ms Contin) 15 mg BID PO Last administered on 02/04/18 08:35 ; Start 01/27/18 at 12:30 Nitroglycerin (Nitrostat) 0.4 mg PRN Q5MIN PRN SL CHEST PAIN; Start 01/27/18 at 12:00 Nystatin (Nystop) 1 susanna PRN BID PRN TP SKIN BREAKDOWN; Start 01/27/18 at 12:00 Tramadol HCl (Ultram) 50 mg PRN Q4HRS PRN PO HEADACHE; Start 01/27/18 at 12:00 Non-Formulary Medication (Albuterol Sulfate (Proventil Hfa Inhaler)) 2 puff BID PRN IH FOR ASTHMA; Start 01/27/18 at 12:00; Status UNV Atorvastatin Calcium (Lipitor) 80 mg QHS PO Last administered on 02/03/18 20: 50; Start 01/27/18 at 21:00 Calcitriol (Rocaltrol) 0.25 mcg DAILY PO Last administered on 02/04/18 14:20 ; Start 01/27/18 at 12:30 Diltiazem HCl (Cardizem 24hr Cd) 120 mg DAILY PO Last administered on 14:20; Start 01/27/18 at 12:30 Erythromycin (E-Mycin) 250 mg BID PO Last administered on 02/04/18 14:19; Start 01/27/18 at 21:00 Fenofibrate (Lofibra) 134 mg QHS PO Last administered on 02/03/18 20:51; Start 01/27/18 at 21:00 Non-Formulary Medication (Fluconazole (Diflucan)) 100 mg PRN PO ; Start at 12:00; Status UNV Lidocaine (Lidoderm) 1 patch PRN DAILY PRN TD PAIN; Start 01/27/18 at 09:00 Niacin (Slo-Niacin) 500 mg QHS PO Last administered on 02/03/18 20:50; Start 01/27/18 at 21:00 Ondansetron HCl (Zofran Odt) 4 mg PRN Q6HRS PRN PO NAUSEA/VOMITING; Start 01/27 at 12:15 Miscellaneous (Lidoderm Patch Removal) 1 ea QHS MC Last administered on at 21:00; Start 01/27/18 at 21:00 Albuterol Sulfate (Ventolin Neb Soln) 2.5 mg PRN BID PRN NEB SHORTNESS OF BREATH Last administered on 01/27/18at 21:59; Start 01/27/18 at 12:30 Lidocaine HCl (Lidocaine 1% 50ml Vial) 50 ml 1X ONCE INJ Last administered on 01/27/18at 14:06; Start 01/27/18 at 12:45; Stop 01/27/18 at 12:46; Status DC Hydromorphone HCl (Dilaudid) 2 mg STK-MED ONCE .ROUTE ; Start 01/27/18 at 12:36 ; Stop 01/27/18 at 12:38; Status DC Propofol 20 ml @ As Directed STK-MED ONCE IV ; Start 01/27/18 at 12:38; Stop at 12:39; Status DC Bacitracin 61642 unit/Sodium Chloride 3,000 ml @ 0 mls/hr 1X ONCE IR ; Start 01/27/18 at 13:15; Stop 01/27/18 at 13:16; Status Cancel Dexamethasone Sodium Phosphate (Decadron) 20 mg STK-MED ONCE .ROUTE ; Start 01/27/18 at 13:11; Stop 01/27/18 at 13:12; Status DC Ondansetron HCl (Zofran) 4 mg STK-MED ONCE .ROUTE ; Start 01/27/18 at 13:11; Stop 01/27/18 at 13:12; Status DC Sevoflurane (Ultane) 30 ml STK-MED ONCE IH ; Start 01/27/18 at 13:11; Stop 01/27 at 13:12; Status DC Bacitracin (Bacitracin) 50,000 unit STK-MED ONCE IRR Last administered on at 13:58; Start 01/27/18 at 12:14; Stop 01/27/18 at 13:16; Status DC Clopidogrel Bisulfate (Plavix) 75 mg DAILYWBKFT PO Last administered on at 09:13; Start 01/28/18 at 08:00; Stop 01/28/18 at 14:28; Status DC Hydromorphone HCl (Dilaudid) 2 mg STK-MED ONCE .ROUTE ; Start 01/27/18 at 15:38 ; Stop 01/27/18 at 15:40; Status DC Gentamicin Sulfate 235 mg/ Dextrose 105.875 ml @ 105.875 mls/hr 1X ONCE IV Last administered on 01/27/18at 19:56; Start 01/27/18 at 16:00; Stop 01/27/18 at 16:59; Status DC Lactobacillus Rhamnosus (Culturelle) 1 cap BID PO Last administered on at 14:19; Start 01/27/18 at 21:00 Cefepime HCl 1 gm/ Dextrose 50 ml @ 100 mls/hr DAILY IV ; Start 01/29/18 at 09: 00; Status UNV Metronidazole 100 ml @ 100 mls/hr Q12HR IV Last administered on 02/02/18at 21: 00; Start 01/28/18 at 10:00; Stop 02/03/18 at 10:49; Status DC Cefepime HCl (Maxipime) 1 gm Q24H IVP Last administered on 02/03/18at 10:54; Start 01/28/18 at 10:00; Stop 02/04/18 at 12:02; Status DC Lidocaine HCl (Xylocaine-Mpf 2% Vial) 2 ml STK-MED ONCE .ROUTE ; Start 01/28/18 at 11:41; Stop 01/28/18 at 11:42; Status DC Sodium Chloride 1,000 ml @ 1,000 mls/hr Q1H PRN IV hypotension; Start 01/28/18 at 12:09; Stop 01/28/18 at 18:08; Status DC Info (PHARMACY MONITORING -- do not chart) 1 each PRN DAILY PRN MC SEE COMMENTS ; Start 01/28/18 at 12:15; Status UNV Info (PHARMACY MONITORING -- do not chart) 1 each PRN DAILY PRN MC SEE COMMENTS ; Start 01/28/18 at 12:15; Stop 01/31/18 at 09:10; Status DC Lidocaine HCl (Xylocaine-Mpf 2% Vial) 2 ml 1X ONCE INJ ; Start 01/28/18 at 12: 15; Stop 01/28/18 at 12:21; Status DC Ticagrelor (Brilinta) 90 mg BID PO Last administered on 02/04/18at 14:20; Start 01/28/18 at 21:00 Diphenhydramine HCl (Benadryl) 25 mg PRN Q6HRS PRN PO ITCHING; Start 01/28/18 at 14:15 Aspirin (Ecotrin) 81 mg DAILYWBKFT PO Last administered on 02/03/18at 10:50; Start 01/29/18 at 08:00 Insulin Human Lispro (HumaLOG) 0-5 UNITS TIDWMEALS SQ Last administered on 03/14at 08:47; Start 01/28/18 at 17:00 Dextrose (Dextrose 50%-Water Syringe) 12.5 gm PRN Q15MIN PRN IV SEE COMMENTS; Start 01/28/18 at 14:45 Hydralazine HCl (Apresoline) 10 mg PRN TID PRN PO hypertension; Start 01/28/18 at 14:45 Oxycodone/ Acetaminophen (Percocet 10/325) 1 tab PRN Q4HRS PRN PO pain SEVERE Last administered on 02/03/18at 10:48; Start 01/29/18 at 07:45 Promethazine HCl (Phenergan Supp) 12.5 mg 1X ONCE W[place] ; Start 01/29/18 at 12:15 ; Stop 01/29/18 at 12:36; Status DC Promethazine HCl (Phenergan Im) 12.5 mg 1X ONCE IM ; Start 01/29/18 at 12:45; Stop 01/29/18 at 12:46; Status DC Lidocaine/ Epinephrine (LIDOCAINE 1%-EPI 1:100,000 Multi-Dose) 20 ml STK-MED ONCE .ROUTE ; Start 01/29/18 at 12:45; Stop 01/29/18 at 12:47; Status DC Heparin Sodium (Porcine) (Hep Lock Adult) 500 unit STK-MED ONCE IV ; Start 01/29 at 12:45; Stop 01/29/18 at 12:47; Status DC Morphine Sulfate (Morphine Sulfate) 10 mg STK-MED ONCE .ROUTE ; Start 01/29/18 at 13:23; Stop 01/29/18 at 13:25; Status DC Midazolam HCl (Versed) 2 mg STK-MED ONCE .ROUTE ; Start 01/29/18 at 13:23; Stop 01/29/18 at 13:25; Status DC Morphine Sulfate (Morphine Sulfate) 1 mg PRN Q10MIN PRN IV SEVERE PAIN Last administered on 02/01/18at 15:46; Start 02/01/18 at 07:00; Stop 02/02/18 at 06:59 ; Status DC Ringer's Solution 1,000 ml @ 30 mls/hr Q24H IV ; Start 02/01/18 at 07:00; Stop 02/01/18 at 18:59; Status DC Lidocaine HCl (Xylocaine-Mpf 1% 2ml Vial) 2 ml PRN 1X PRN ID PRIOR TO IV START ; Start 02/01/18 at 07:00; Stop 02/02/18 at 06:59; Status DC Hydromorphone HCl (Dilaudid) 0.5 mg PRN Q10MIN PRN IV SEV PAIN, Second choice Last administered on 02/01/18at 16:08; Start 02/01/18 at 07:00; Stop 02/02/18 at 06:59; Status DC Prochlorperazine Edisylate (Compazine) 5 mg PACU PRN PRN IV NAUSEA, MRX1; Start 02/01/18 at 07:00; Stop 02/02/18 at 06:59; Status DC Lidocaine/ Epinephrine (LIDOCAINE 1%-EPI 1:100,000 Multi-Dose) 8 ml 1X ONCE IJ Last administered on 01/29/18at 14:01; Start 01/29/18 at 14:00; Stop 01/29/18 at 14:17; Status DC Heparin Sodium (Porcine) (Hep Lock Adult) 500 unit 1X ONCE IV Last administered on 01/29/18at 14:04; Start 01/29/18 at 14:00; Stop 01/29/18 at 14:17 ; Status DC Morphine Sulfate (Morphine Sulfate) 5 mg 1X ONCE IV Last administered on at 14:01; Start 01/29/18 at 14:00; Stop 01/29/18 at 14:17; Status DC Ondansetron HCl (Zofran) 4 mg PRN Q6HRS PRN IV NAUSEA/VOMITING 1ST CHOICE Last administered on 02/02/18at 09:51; Start 01/29/18 at 14:45 Vancomycin HCl 500 mg/Sodium Chloride 100 ml @ 100 mls/hr 1X ONCE IV Last administered on 01/29/18at 21:04; Start 01/29/18 at 18:00; Stop 01/29/18 at 18:59 ; Status DC Sodium Chloride 1,000 ml @ 1,000 mls/hr Q1H PRN IV hypotension; Start 01/30/18 at 13:09; Stop 01/30/18 at 19:08; Status DC Sodium Chloride (Normal Saline Flush) 10 ml 1X PRN PRN IV AP catheter pack; Start 01/30/18 at 13:15; Stop 01/31/18 at 13:14; Status DC Sodium Chloride (Normal Saline Flush) 10 ml 1X PRN PRN IV JUICE TESTER catheter pack; Start 01/30/18 at 13:15; Stop 01/31/18 at 13:14; Status DC Sodium Chloride 1,000 ml @ 400 mls/hr Q2H30M PRN IV PATENCY; Start 01/30/18 at 13:09; Stop 01/31/18 at 01:08; Status DC Info (PHARMACY MONITORING -- do not chart) 1 each PRN DAILY PRN MC SEE COMMENTS ; Start 01/30/18 at 13:15; Stop 01/30/18 at 13:17; Status DC Info (PHARMACY MONITORING -- do not chart) 1 each PRN DAILY PRN MC SEE COMMENTS ; Start 01/30/18 at 13:15; Stop 02/04/18 at 07:27; Status DC Lidocaine HCl (Lidocaine 1% 50ml Vial) 50 ml 1X ONCE INJ ; Start 01/30/18 at 15 :45; Stop 01/30/18 at 15:46; Status DC Vancomycin HCl 500 mg/Sodium Chloride 100 ml @ 100 mls/hr ONCE ONCE IV Last administered on 01/30/18at 20:49; Start 01/30/18 at 18:00; Stop 01/30/18 at 18:59 ; Status DC Cefazolin Sodium 1 gm/Sodium Chloride 500 ml @ 500 mls/hr 1X ONCE IRR ; Start 02/01/18 at 06:00; Stop 02/01/18 at 06:59; Status DC Lidocaine HCl (Xylocaine-Mpf 2% Vial) 2 ml [facility] ONCE .ROUTE ; Start 01/28/18 at 12:00; Stop 02/01/18 at 08:30; Status DC Darbepoetin Mauricio (Aranesp) 60 mcg [id number] SQ Last administered on 02/01/18at 21 :38; Start 02/01/18 at 21:00 Cellulose (Surgicel Fibrillar 1x2) 1 each STK-MED ONCE .ROUTE ; Start 02/01/18 at 12:05; Stop 02/01/18 at 13:06; Status DC Lidocaine HCl (Xylocaine 1% Pf 30ml Vial) 30 ml 1X ONCE INJ ; Start 02/01/18 at 13:15; Stop 02/01/18 at 13:18; Status DC Sodium Chloride 1,000 ml @ 75 mls/hr [id number] IV Last administered on at 00:15; Start 02/01/18 at 13:45; Stop 02/02/18 at 16:43; Status DC Morphine Sulfate (Morphine Sulfate) 10 mg STK-MED ONCE .ROUTE ; Start 02/01/18 at 14:24; Stop 02/01/18 at 14:25; Status DC Midazolam HCl (Versed) 2 mg STK-MED ONCE .ROUTE ; Start 02/01/18 at 14:24; Stop 02/01/18 at 14:25; Status DC Midazolam HCl (Versed) 2 mg STK-MED ONCE .ROUTE ; Start 02/01/18 at 14:25; Stop 02/01/18 at 14:26; Status DC Propofol 20 ml @ As Directed STK-MED ONCE IV ; Start 02/01/18 at 14:25; Stop at 14:26; Status DC Dexamethasone Sodium Phosphate (Decadron) 20 mg STK-MED ONCE .ROUTE ; Start 02/01/18 at 14:25; Stop 02/01/18 at 14:26; Status DC Ondansetron HCl (Zofran) 4 mg STK-MED ONCE .ROUTE ; Start 02/01/18 at 14:25; Stop 02/01/18 at 14:26; Status DC Bacitracin (Bacitracin) 50,000 unit STK-MED ONCE IRR Last administered on at 14:55; Start 02/01/18 at 13:32; Stop 02/01/18 at 14:32; Status DC Vancomycin HCl 500 mg/Sodium Chloride 100 ml @ 100 mls/hr QTUTHSA IV Last administered on 02/02/18at 16:15; Start 02/02/18 at 16:00; Stop 02/04/18 at 12: 02; Status DC Sodium Chloride 1,000 ml @ 1,000 mls/hr Q1H PRN IV hypotension; Start 02/02/18 at 09:39; Stop 02/02/18 at 15:38; Status DC Albumin Human 200 ml @ 200 mls/hr 1X PRN PRN IV Hypotension; Start 02/02/18 at 09:45; Stop 02/02/18 at 15:44; Status DC Sodium Chloride 1,000 ml @ 400 mls/hr Q2H30M PRN IV PATENCY; Start 02/02/18 at 09:39; Stop 02/02/18 at 21:38; Status DC Info (PHARMACY MONITORING -- do not chart) 1 each PRN DAILY PRN MC SEE COMMENTS ; Start 02/02/18 at 09:45; Stop 02/04/18 at 07:28; Status DC Info (PHARMACY MONITORING -- do not chart) 1 each PRN DAILY PRN MC SEE COMMENTS ; Start 02/02/18 at 09:45; Status UNV Prochlorperazine Edisylate (Compazine) 10 mg PRN Q6HRS PRN IV NAUSEA/VOMITING 2ND CHOICE Last administered on 02/02/18at 23:23; Start 02/02/18 at 11:30 Vancomycin HCl (Vanco Per Pharmacy) 1 each PRN DAILY PRN MC SEE COMMENTS Last administered on 02/02/18at 13:57; Start 02/02/18 at 14:00; Stop 02/04/18 at 12: 02; Status DC Famotidine (Pepcid Vial) 20 mg DAILY IVP Last administered on 02/04/18at 14:25 ; Start 02/03/18 at 10:00 Alteplase, Recombinant (Cathflo) 2 mg 1X ONCE INT CAT Last administered on 03/14at 02:56; Start 02/04/18 at 03:00; Stop 02/04/18 at 03:01; Status DC Sodium Chloride 1,000 ml @ 1,000 mls/hr Q1H PRN IV hypotension; Start at 07:15; Stop 02/04/18 at 13:14; Status DC Albumin Human 200 ml @ 200 mls/hr 1X PRN PRN IV Hypotension Last administered on 02/04/18at 11:26; Start 02/04/18 at 07:15; Stop 02/04/18 at 13:14; Status DC Acetaminophen (Tylenol) 500 mg 1X PRN PRN PO MILD PAIN / TEMP; Start 02/04/18 at 07:15; Stop 02/05/18 at 07:14 Diphenhydramine HCl (Benadryl) 25 mg 1X PRN PRN IV ITCHING; Start 02/04/18 at 07:15; Stop 02/05/18 at 07:14 Diphenhydramine HCl (Benadryl) 25 mg 1X PRN PRN IV ITCHING; Start 02/04/18 at 07:15; Stop 02/05/18 at 07:14 Sodium Chloride 1,000 ml @ 400 mls/hr Q2H30M PRN IV PATENCY; Start 02/04/18 at 07:15; Stop 02/04/18 at 19:14 Info (PHARMACY MONITORING -- do not chart) 1 each PRN DAILY PRN MC SEE COMMENTS ; Start 02/04/18 at 07:15 Lidocaine HCl (Xylocaine-Mpf 2% Vial) 2 ml STK-MED ONCE .ROUTE ; Start at 09:43; Stop 02/04/18 at 09:44; Status DC Docusate Sodium (Colace) 100 mg PRN DAILY PRN PO CONSTIPATION; Start 02/04/18 at 10:30 Ceftriaxone Sodium 2 gm/ Dextrose 100 ml @ 200 mls/hr Q24H IV Last administered on 02/04/18at 14:24; Start 02/04/18 at 13:00 Morphine Sulfate (Morphine Sulfate) 1 mg PRN Q10MIN PRN IV SEVERE PAIN; Start 02/05/18 at 07:00; Stop 02/06/18 at 06:59 Ringer's Solution 1,000 ml @ 30 mls/hr Q24H IV ; Start 02/05/18 at 07:00; Stop 02/05/18 at 18:59 Lidocaine HCl (Xylocaine-Mpf 1% 2ml Vial) 2 ml PRN 1X PRN ID IV START; Start 02/05/18 at 07:00; Stop 02/06/18 at 06:59 Hydromorphone HCl (Dilaudid) 0.5 mg PRN Q10MIN PRN IV SEV PAIN, Second choice; Start 02/05/18 at 07:00; Stop 02/06/18 at 06:59 Prochlorperazine Edisylate (Compazine) 5 mg PACU PRN PRN IV NAUSEA, MRX1; Start 02/05/18 at 07:00; Stop 02/06/18 at 06:59 Active Scripts Active Percocet 10-325 Mg Tablet (Oxycodone/Acetaminophen) 1 Each Tablet 1 Tab PO Q4HRS Brilinta (Ticagrelor) 90 Mg Tablet 90 Mg PO BID 30 Days Morphine Sulfate Er (Morphine Sulfate) 15 Mg Tablet.er 15 Mg PO BID Reported Brilinta (Ticagrelor) 90 Mg Tablet 90 Mg PO BID Lidocaine 1 Each Adh..patch 1 Each TP PRN DAILY PRN Calcitriol 0.25 Mcg Capsule 1 Cap PO DAILY Tegretol (Carbamazepine) 200 Mg Tablet 1 Tab PO BID Tramadol Hcl 50 Mg Tablet 50 Mg PO Q4HRS PRN Lantus Solostar (Insulin Glargine,Hum.rec.anlog) 100 Unit/1 Ml Insuln.pen 22 Unit SQ QHS Diflucan (Fluconazole) 100 Mg Tablet 100 Mg PO PRN Carvedilol 3.125 Mg Tablet 12.5 Mg PO BID Erythromycin (Erythromycin Base) 250 Mg Capsule.dr 250 Mg PO BID Cardizem Cd (Diltiazem Hcl) 180 Mg Cap.er.24h 120 Mg PO DAILY Amiodarone Hcl 200 Mg Tablet 1 Tab PO DAILY Nystatin 15 Gm Powder 1 Susanna TP PRN BID PRN Proventil Hfa Inhaler (Albuterol Sulfate) 6.7 Gm Hfa.aer.ad 2 Puff IH BID PRN Zofran (Ondansetron Hcl) 4 Mg Tablet 4 Mg PO Q6-8HRS PRN Nephro-Shabbir Tablet (Folic Acid/Vitamin B Comp W-C) 0.8 Mg Tablet 1 Tab PO DAILY Tricor (Fenofibrate Nanocrystallized) 145 Mg Tablet 1 Tab PO HS Lipitor (Atorvastatin Calcium) 80 Mg Tablet 80 Mg PO HS Niacin 500 Mg Tablet 500 Mg PO HS Novolog (Insulin Aspart) 100 Unit/1 Ml Cartridge 0 SQ TIDAC sliding scale Aspirin 325 Mg Tablet 325 Mg PO DAILY Furosemide 80 Mg Tablet 80 Mg PO BID Docusate Sodium 100 Mg Capsule 1 Cap PO PRN PRN Nitrostat (Nitroglycerin) 0.4 Mg Tab.subl 0.4 Mg SL PRN Q5MIN PRN Take as needed for chest pain Allergies Allergies: Coded Allergies: Sulfa (Sulfonamide Antibiotics) (Verified Allergy, Severe, Anaphylaxis, ) meropenem (Verified Allergy, Intermediate, Rash, 02/05/18) Tolerates ancef piperacillin (Verified Allergy, Intermediate, Rash, 02/05/18) Tolerates ancef strawberry (Verified Allergy, Intermediate, 02/05/18) tazobactam (Verified Allergy, Intermediate, 02/05/18) cefazolin (Verified Adverse Reaction, Intermediate, Itching, 02/05/18) Causes Vomiting fentanyl (Verified Adverse Reaction, Intermediate, Nausea and Vomiting, ) Vomiting ROS Review of System Patient denies fevers, chills, weight loss, dyspnea, angina, abdominal pain, change in bowels, or dysuria. 14-point review of systems is negative. Physical Exam Physical Examination General: Well-developed, well-nourished, white female, in no acute distress HEENT: Normocephalic andatraumatic. Temporal arteriespulsatile and nontender. Fundoscopic exam shows bilateral retinopathy changes, difficulty exam, probable cataracts bilaterally. Neck: Supple without bruit, no meningismus Musculoskeletal: Stability:see neurologic. Gait exam:see neurologic. Tone:see neurologic. Strength:see neurologic.She has a left below the knee application, recent lower extremity right surgical wounds, wound VAC in place Neurological: Mental Status:intact, orientation, memory, attention span/concentration, language, fund of knowledge normal. Cranial Nerves:Pupils equal and reactive to light, extraocular movements areintact, visual ruiz are full to confrontation. Visual acuity is 20/800 with a near card, bilaterally. Facial sensation is normal. There is no facial asymmetry. Vestibulo-ocular reflex is intact. Palate elvates and tongue protrudes in midline. All other cranial related problems are negative except as mentioned before.Reflexes:0+ and symmetric with Silent plants response on right. Motor:4/5 strength with normal tone and bulk. Coordination:Finger-nose finger and [id number] testing are normal. Rapid alternating movements and fine finger movements are intact. Gait: Not tested. Sensory: stocking loss Vitals VITALS Vital Signs Date Time Temp Pulse Resp B/P (MAP) Pulse Ox O2 Delivery O2 Flow Rate FiO2 02/04/18 15:05 Room Air 02/04/18 14:24 85 141/58 02/04/18 09:15 2.0 02/04/18 07:15 97.3 18 99 97.3 Labs Labs Laboratory Tests Test 02/02/18 16:57 02/02/18 20:44 02/03/18 04:25 02/03/18 07:37 Glucose (Fingerstick) 224 mg/dL (70-99) 187 mg/dL (70-99) 140 mg/dL (70-99) White Blood Count 15.1 x10^3/uL (4.0-11.0) Red Blood Count 2.55 x10^6/uL (3.50-5.40) Hemoglobin 7.9 g/dL (12.0-15.5) Hematocrit 24.0 % (36.0-47.0) Mean Corpuscular Volume 94 fL (79-100) Mean Corpuscular Hemoglobin 31 pg (25-35) Mean Corpuscular Hemoglobin Concent 33 g/dL (31-37) Red Cell Distribution Width 17.5 % (11.5-14.5) Platelet Count 368 x10^3/uL (140-400) Neutrophils (%) (Auto) 84 % (31-73) Lymphocytes (%) (Auto) 9 % (24-48) Monocytes (%) (Auto) 6 % (0-9) Eosinophils (%) (Auto) 0 % (0-3) Basophils (%) (Auto) 0 % (0-3) Neutrophils # (Auto) 12.7 x10^3uL (1.8-7.7) Lymphocytes # (Auto) 1.4 x10^3/uL (1.0-4.8) Monocytes # (Auto) 0.9 x10^3/uL (0.0-1.1) Eosinophils # (Auto) 0.0 x10^3/uL (0.0-0.7) Basophils # (Auto) 0.0 x10^3/uL (0.0-0.2) Sodium Level 146 mmol/L (136-145) Potassium Level 4.3 mmol/L (3.5-5.1) Chloride Level 103 mmol/L (98-107) Carbon Dioxide Level 34 mmol/L (21-32) Anion Gap 9 (6-14) Blood Urea Nitrogen 39 mg/dL (7-20) Creatinine 3.9 mg/dL (0.6-1.0) Estimated GFR (Cockcroft-Gault) 12.1 Glucose Level 179 mg/dL (70-99) Calcium Level 8.1 mg/dL (8.5-10.1) Phosphorus Level 4.5 mg/dL (2.6-4.7) Albumin 1.5 g/dL (3.4-5.0) Test 02/03/18 10:43 02/03/18 17:51 02/03/18 20:18 02/04/18 03:35 Glucose (Fingerstick) 121 mg/dL (70-99) 155 mg/dL (70-99) 164 mg/dL (70-99) White Blood Count 16.3 x10^3/uL (4.0-11.0) Red Blood Count 2.34 x10^6/uL (3.50-5.40) Hemoglobin 7.4 g/dL (12.0-15.5) Hematocrit 22.5 % (36.0-47.0) Mean Corpuscular Volume 96 fL (79-100) Mean Corpuscular Hemoglobin 32 pg (25-35) Mean Corpuscular Hemoglobin Concent 33 g/dL (31-37) Red Cell Distribution Width 17.2 % (11.5-14.5) Platelet Count 347 x10^3/uL (140-400) Neutrophils (%) (Auto) 82 % (31-73) Lymphocytes (%) (Auto) 11 % (24-48) Monocytes (%) (Auto) 6 % (0-9) Eosinophils (%) (Auto) 1 % (0-3) Basophils (%) (Auto) 1 % (0-3) Neutrophils # (Auto) 13.4 x10^3uL (1.8-7.7) Lymphocytes # (Auto) 1.7 x10^3/uL (1.0-4.8) Monocytes # (Auto) 1.0 x10^3/uL (0.0-1.1) Eosinophils # (Auto) 0.1 x10^3/uL (0.0-0.7) Basophils # (Auto) 0.1 x10^3/uL (0.0-0.2) Sodium Level 139 mmol/L (136-145) Potassium Level 4.8 mmol/L (3.5-5.1) Chloride Level 101 mmol/L (98-107) Carbon Dioxide Level 26 mmol/L (21-32) Anion Gap 12 (6-14) Blood Urea Nitrogen 56 mg/dL (7-20) Creatinine 4.8 mg/dL (0.6-1.0) Estimated GFR (Cockcroft-Gault) 9.5 BUN/Creatinine Ratio 12 (6-20) Glucose Level 328 mg/dL (70-99) Calcium Level 7.9 mg/dL (8.5-10.1) Total Bilirubin 0.3 mg/dL (0.2-1.0) Aspartate Amino Transf (AST/SGOT) 12 U/L (15-37) Alanine Aminotransferase (ALT/SGPT) 10 U/L (14-59) Alkaline Phosphatase 119 U/L (46-116) Total Protein 4.9 g/dL (6.4-8.2) Albumin 1.7 g/dL (3.4-5.0) Albumin/Globulin Ratio 0.5 (1.0-1.7) Test 02/04/18 07:45 02/04/18 14:06 Glucose (Fingerstick) 343 mg/dL (70-99) 146 mg/dL (70-99) Laboratory Tests Test 02/03/18 17:51 02/03/18 20:18 02/04/18 03:35 02/04/18 07:45 Glucose (Fingerstick) 155 mg/dL (70-99) 164 mg/dL (70-99) 343 mg/dL (70-99) White Blood Count 16.3 x10^3/uL (4.0-11.0) Red Blood Count 2.34 x10^6/uL (3.50-5.40) Hemoglobin 7.4 g/dL (12.0-15.5) Hematocrit 22.5 % (36.0-47.0) Mean Corpuscular Volume 96 fL (79-100) Mean Corpuscular Hemoglobin 32 pg (25-35) Mean Corpuscular Hemoglobin Concent 33 g/dL (31-37) Red Cell Distribution Width 17.2 % (11.5-14.5) Platelet Count 347 x10^3/uL (140-400) Neutrophils (%) (Auto) 82 % (31-73) Lymphocytes (%) (Auto) 11 % (24-48) Monocytes (%) (Auto) 6 % (0-9) Eosinophils (%) (Auto) 1 % (0-3) Basophils (%) (Auto) 1 % (0-3) Neutrophils # (Auto) 13.4 x10^3uL (1.8-7.7) Lymphocytes # (Auto) 1.7 x10^3/uL (1.0-4.8) Monocytes # (Auto) 1.0 x10^3/uL (0.0-1.1) Eosinophils # (Auto) 0.1 x10^3/uL (0.0-0.7) Basophils # (Auto) 0.1 x10^3/uL (0.0-0.2) Sodium Level 139 mmol/L (136-145) Potassium Level 4.8 mmol/L (3.5-5.1) Chloride Level 101 mmol/L (98-107) Carbon Dioxide Level 26 mmol/L (21-32) Anion Gap 12 (6-14) Blood Urea Nitrogen 56 mg/dL (7-20) Creatinine 4.8 mg/dL (0.6-1.0) Estimated GFR (Cockcroft-Gault) 9.5 BUN/Creatinine Ratio 12 (6-20) Glucose Level 328 mg/dL (70-99) Calcium Level 7.9 mg/dL (8.5-10.1) Total Bilirubin 0.3 mg/dL (0.2-1.0) Aspartate Amino Transf (AST/SGOT) 12 U/L (15-37) Alanine Aminotransferase (ALT/SGPT) 10 U/L (14-59) Alkaline Phosphatase 119 U/L (46-116) Total Protein 4.9 g/dL (6.4-8.2) Albumin 1.7 g/dL (3.4-5.0) Albumin/Globulin Ratio 0.5 (1.0-1.7) Test 02/04/18 14:06 Glucose (Fingerstick) 146 mg/dL (70-99) Assessment/Plan Assessment/Plan Impression: I explained to the patient and her son that 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 There may be some cataracts. I don't think that she has any acute narrow angle closure glaucoma given the reactivity of the pupils and the lack of pain. I suppose she may have had a bilateral occipital stroke. This is unlikely. Ischemic optic neuropathy is possible. Vasculitic optic neuropathy is unlikely, but checking sedimentation rate is probably going to be falsely positive given the recent surgery. The temporal arteries are nontender. Recommendations: CT of the head Outpatient ophthalmology evaluation when medically stable. I did informally discussed with ophthalmology. They would not do any acute intervention for retinopathy in the post-surgical state the patient is in. There is no need to immediately check for glaucoma given the lack of pain. I fully discussed with the patient and her son. Thank you for letting me help with the patient's care. ADAM HAGEN MD Feb 04, 2018 16:09
--- NOTE | 2018-02-04 16:36 | RAD ---
CT HEAD WITHOUT CONTRAST 02/04/2018 2:10 PM Indication: ACUTE VISION LOSS, NO PRIORS Comparison: None available Procedure: Multidetector CT imaging of the head was performed without the administration of contrast. Findings: There is no evidence of acute intracranial hemorrhage. There is no evidence of acute territorial infarction. Please note that CT is limited for evaluation of acute ischemia. If there is continued clinical concern for acute ischemia MRI is recommended for further evaluation. No mass effect or midline shift is identified . The ventricles and basilar cisterns have an appropriate appearance. No abnormal extra-axial fluid collections are seen. Postsurgical changes following posterior fossa craniectomy noted. No acute osseous amount is not seen. There is a punctate calcification seen in the region of the left retina. 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 Impression: 1. Punctate calcification seen in the expected region of the left retina. 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 While typically benign and incidental, given acute visual loss, ophthalmologic consultation recommended 2. No other acute intracranial abnormality is identified. If there is continued concern for acute ischemia, MRI is recommended for further evaluation CT DOSING PQRS STATEMENT: One or more of the following individualized dose reduction techniques were utilized for this examination: 1. Automated exposure control 2. Adjustment of the mA and/or kV according to patient size 3. Use of iterative reconstruction technique Electronically signed by: Tayo Hatfield MD (02/04/2018 4:33 PM) [id number]
[2018-02-04 19:00] VITALS: BP 139/82
[2018-02-04] MEDS: PATCH REMOVAL. MC SCH (21:00)
[2018-02-04] MEDS: ATORVASTATIN CALCIUM 40 MG TABLET. PO SCH (22:00)
[2018-02-04] MEDS: NIACIN ER 500 MG TABLET.ER PO SCH (22:00)
[2018-02-04] MEDS: FENOFIBRATE,MICRONIZED 134 MG CAPSULE PO SCH (22:00)
[2018-02-04] MEDS: INSULIN GLARGINE 300 UNITS/3 ML INSULN.PEN. SQ SCH (22:05)
[2018-02-04 23:00] VITALS: BP 149/56
[2018-02-05] VITALS (9 sets, daily range): BP systolic 113–148; BP diastolic 48–67
[2018-02-05] MEDS: HYDROmorphone 2 MG/ML VIAL IV PRN ×3 (02:54→21:10)
[2018-02-05 04:57] LABS: BASO # 0.1 x10^3/uL (0.0-0.2); BASO % 1 % (0-3); EOS # 0.2 x10^3/uL (0.0-0.7); EOS % 1 % (0-3); LYMPH # 1.4 x10^3/uL (1.0-4.8); LYMPH % 8 % (24-48); MEAN CORPUSCULAR HEMOGLOBIN 32 pg (25-35); MEAN CORPUSCULAR HGB CONC 34 g/dL (31-37); MEAN CORPUSCULAR VOLUME 94 fL (79-100); MONO % 6 % (0-9); NEUT # 14.3 x10^3uL (1.8-7.7); NEUT % 84 % (31-73); PLATELET COUNT 287 x10^3/uL (140-400); RED BLOOD COUNT 1.99 x10^6/uL (3.50-5.40); RED CELL DISTRIBUTION WIDTH 16.7 % (11.5-14.5); WHITE BLOOD COUNT 17.1 x10^3/uL (4.0-11.0)
[2018-02-05 05:01] LABS: HEMOGLOBIN 6.4 g/dL (12.0-15.5)
[2018-02-05 06:09] LABS: ALBUMIN 2.4 g/dL (3.4-5.0); ALBUMIN/GLOBULIN RATIO 0.9 (1.0-1.7); CALCIUM 8.5 mg/dL (8.5-10.1); CREATININE 3.1 mg/dL (0.6-1.0); GFR 15.8; POTASSIUM 3.9 mmol/L (3.5-5.1); TOTAL BILIRUBIN 0.4 mg/dL (0.2-1.0); TOTAL PROTEIN 5.2 g/dL (6.4-8.2)
[2018-02-05] MEDS ORDERED: IV RINGERS,LACTATED 1000ML 1,000 ML IV SCH (07:00)
[2018-02-05] MEDS ORDERED: MORPHINE SULFATE 2 MG/ML VIAL. IV PRN (07:00)
[2018-02-05] MEDS ORDERED: PROCHLORPERAZINE 10 MG/2 ML VIAL. IV PRN (07:00)
[2018-02-05] MEDS ORDERED: HYDROmorphone 2 MG/ML VIAL IV PRN (07:00)
[2018-02-05] MEDS ORDERED: LIDOCAINE 1% PF 2 ML VIAL. ID PRN (07:00)
[2018-02-05] MEDS: ALBUTEROL SULFATE 2.5 MG/3 ML NEBU. NEB PRN (07:47)
[2018-02-05] MEDS: INSULIN LISPRO 300 UNITS/3 ML INSULN.PEN. SQ SCH ×3 (07:51→17:00)
[2018-02-05] MEDS: ERYTHROMYCIN BASE 250 MG TABLET PO SCH ×2 (09:00→13:33)
[2018-02-05] MEDS: LACTOBACILLUS RHAMNOSUS GG 1 CAPSULE. PO SCH ×2 (09:00→13:33)
[2018-02-05] MEDS: FUROSEMIDE 80 MG TABLET. PO SCH ×2 (09:00→13:35)
[2018-02-05] MEDS: FAMOTIDINE 20 MG/2 ML VIAL IVP SCH (09:00)
--- NOTE | 2018-02-05 10:59 | PDOC ---
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 HEART: S1, S2 regular. ABDOMEN: Soft, NT EXTREMITIES: Left BKA. RLE edema with wound vac in place . NEUROLOGIC: Alert and responds appropriately Tunnelled RIJ (01/29) General: Alert, Oriented X3, Cooperative, No acute distress Heart: Regular rate, Normal S1, Normal S2 Lungs: Wheezing Abdomen: Normal bowel sounds, Soft, No tenderness, Other (PD cath clean dry and intact) Extremities: No clubbing, Other (RLE red along staple line with swollen red foot and right groin open wound, foul smelling. LLE BKA clean. RUE fistula with good bruit) Skin: No breakdown, Other (dehiscence of the proximal right common femoral incision and vein harvest site with lower extremity edema and mild cellulitis) Labs LABS Laboratory Tests Test 02/04/18 14:06 02/04/18 17:06 02/04/18 21:20 02/05/18 04:35 Glucose (Fingerstick) 146 mg/dL (70-99) 131 mg/dL (70-99) 113 mg/dL (70-99) White Blood Count 17.1 x10^3/uL (4.0-11.0) Red Blood Count 1.99 x10^6/uL (3.50-5.40) Hemoglobin 6.4 g/dL (12.0-15.5) Hematocrit 19.0 % (36.0-47.0) Mean Corpuscular Volume 94 fL (79-100) Mean Corpuscular Hemoglobin 32 pg (25-35) Mean Corpuscular Hemoglobin Concent 34 g/dL (31-37) Red Cell Distribution Width 16.7 % (11.5-14.5) Platelet Count 287 x10^3/uL (140-400) Neutrophils (%) (Auto) 84 % (31-73) Lymphocytes (%) (Auto) 8 % (24-48) Monocytes (%) (Auto) 6 % (0-9) Eosinophils (%) (Auto) 1 % (0-3) Basophils (%) (Auto) 1 % (0-3) Neutrophils # (Auto) 14.3 x10^3uL (1.8-7.7) Lymphocytes # (Auto) 1.4 x10^3/uL (1.0-4.8) Monocytes # (Auto) 1.0 x10^3/uL (0.0-1.1) Eosinophils # (Auto) 0.2 x10^3/uL (0.0-0.7) Basophils # (Auto) 0.1 x10^3/uL (0.0-0.2) Sodium Level 140 mmol/L (136-145) Potassium Level 3.9 mmol/L (3.5-5.1) Chloride Level 102 mmol/L (98-107) Carbon Dioxide Level 30 mmol/L (21-32) Anion Gap 8 (6-14) Blood Urea Nitrogen 26 mg/dL (7-20) Creatinine 3.1 mg/dL (0.6-1.0) Estimated GFR (Cockcroft-Gault) 15.8 BUN/Creatinine Ratio 8 (6-20) Glucose Level 79 mg/dL (70-99) Calcium Level 8.5 mg/dL (8.5-10.1) Total Bilirubin 0.4 mg/dL (0.2-1.0) Aspartate Amino Transf (AST/SGOT) 16 U/L (15-37) Alanine Aminotransferase (ALT/SGPT) 11 U/L (14-59) Alkaline Phosphatase 89 U/L (46-116) Total Protein 5.2 g/dL (6.4-8.2) Albumin 2.4 g/dL (3.4-5.0) Albumin/Globulin Ratio 0.9 (1.0-1.7) Test 02/05/18 07:49 Glucose (Fingerstick) 63 mg/dL (70-99) Review of Systems Review of Systems CO hunger CO fatigue Assessment and Plan Assessmemt and Plan Problems Medical Problems: (1) Chronic renal failure Status: Acute Recent fempop Right groin wound infection Sepsis from Right LE cellulitis ESRD on PD and HD Left BKA Left retinal optic disc drusen Plan: Dialysis Home Meds Labs IV Abx PT/OT Probable discharge to LTAC next week Comment Review of Relevant I have reviewed the following items bert (where applicable) has been applied. Labs Laboratory Tests Test 02/03/18 17:51 02/03/18 20:18 02/04/18 03:35 02/04/18 07:45 Glucose (Fingerstick) 155 mg/dL (70-99) 164 mg/dL (70-99) 343 mg/dL (70-99) White Blood Count 16.3 x10^3/uL (4.0-11.0) Red Blood Count 2.34 x10^6/uL (3.50-5.40) Hemoglobin 7.4 g/dL (12.0-15.5) Hematocrit 22.5 % (36.0-47.0) Mean Corpuscular Volume 96 fL (79-100) Mean Corpuscular Hemoglobin 32 pg (25-35) Mean Corpuscular Hemoglobin Concent 33 g/dL (31-37) Red Cell Distribution Width 17.2 % (11.5-14.5) Platelet Count 347 x10^3/uL (140-400) Neutrophils (%) (Auto) 82 % (31-73) Lymphocytes (%) (Auto) 11 % (24-48) Monocytes (%) (Auto) 6 % (0-9) Eosinophils (%) (Auto) 1 % (0-3) Basophils (%) (Auto) 1 % (0-3) Neutrophils # (Auto) 13.4 x10^3uL (1.8-7.7) Lymphocytes # (Auto) 1.7 x10^3/uL (1.0-4.8) Monocytes # (Auto) 1.0 x10^3/uL (0.0-1.1) Eosinophils # (Auto) 0.1 x10^3/uL (0.0-0.7) Basophils # (Auto) 0.1 x10^3/uL (0.0-0.2) Sodium Level 139 mmol/L (136-145) Potassium Level 4.8 mmol/L (3.5-5.1) Chloride Level 101 mmol/L (98-107) Carbon Dioxide Level 26 mmol/L (21-32) Anion Gap 12 (6-14) Blood Urea Nitrogen 56 mg/dL (7-20) Creatinine 4.8 mg/dL (0.6-1.0) Estimated GFR (Cockcroft-Gault) 9.5 BUN/Creatinine Ratio 12 (6-20) Glucose Level 328 mg/dL (70-99) Calcium Level 7.9 mg/dL (8.5-10.1) Total Bilirubin 0.3 mg/dL (0.2-1.0) Aspartate Amino Transf (AST/SGOT) 12 U/L (15-37) Alanine Aminotransferase (ALT/SGPT) 10 U/L (14-59) Alkaline Phosphatase 119 U/L (46-116) Total Protein 4.9 g/dL (6.4-8.2) Albumin 1.7 g/dL (3.4-5.0) Albumin/Globulin Ratio 0.5 (1.0-1.7) Test 02/04/18 14:06 02/04/18 17:06 02/04/18 21:20 02/05/18 04:35 Glucose (Fingerstick) 146 mg/dL (70-99) 131 mg/dL (70-99) 113 mg/dL (70-99) White Blood Count 17.1 x10^3/uL (4.0-11.0) Red Blood Count 1.99 x10^6/uL (3.50-5.40) Hemoglobin 6.4 g/dL (12.0-15.5) Hematocrit 19.0 % (36.0-47.0) Mean Corpuscular Volume 94 fL (79-100) Mean Corpuscular Hemoglobin 32 pg (25-35) Mean Corpuscular Hemoglobin Concent 34 g/dL (31-37) Red Cell Distribution Width 16.7 % (11.5-14.5) Platelet Count 287 x10^3/uL (140-400) Neutrophils (%) (Auto) 84 % (31-73) Lymphocytes (%) (Auto) 8 % (24-48) Monocytes (%) (Auto) 6 % (0-9) Eosinophils (%) (Auto) 1 % (0-3) Basophils (%) (Auto) 1 % (0-3) Neutrophils # (Auto) 14.3 x10^3uL (1.8-7.7) Lymphocytes # (Auto) 1.4 x10^3/uL (1.0-4.8) Monocytes # (Auto) 1.0 x10^3/uL (0.0-1.1) Eosinophils # (Auto) 0.2 x10^3/uL (0.0-0.7) Basophils # (Auto) 0.1 x10^3/uL (0.0-0.2) Sodium Level 140 mmol/L (136-145) Potassium Level 3.9 mmol/L (3.5-5.1) Chloride Level 102 mmol/L (98-107) Carbon Dioxide Level 30 mmol/L (21-32) Anion Gap 8 (6-14) Blood Urea Nitrogen 26 mg/dL (7-20) Creatinine 3.1 mg/dL (0.6-1.0) Estimated GFR (Cockcroft-Gault) 15.8 BUN/Creatinine Ratio 8 (6-20) Glucose Level 79 mg/dL (70-99) Calcium Level 8.5 mg/dL (8.5-10.1) Total Bilirubin 0.4 mg/dL (0.2-1.0) Aspartate Amino Transf (AST/SGOT) 16 U/L (15-37) Alanine Aminotransferase (ALT/SGPT) 11 U/L (14-59) Alkaline Phosphatase 89 U/L (46-116) Total Protein 5.2 g/dL (6.4-8.2) Albumin 2.4 g/dL (3.4-5.0) Albumin/Globulin Ratio 0.9 (1.0-1.7) Test 02/05/18 07:49 Glucose (Fingerstick) 63 mg/dL (70-99) Laboratory Tests Test 02/04/18 14:06 02/04/18 17:06 02/04/18 21:20 02/05/18 04:35 Glucose (Fingerstick) 146 mg/dL (70-99) 131 mg/dL (70-99) 113 mg/dL (70-99) White Blood Count 17.1 x10^3/uL (4.0-11.0) Red Blood Count 1.99 x10^6/uL (3.50-5.40) Hemoglobin 6.4 g/dL (12.0-15.5) Hematocrit 19.0 % (36.0-47.0) Mean Corpuscular Volume 94 fL (79-100) Mean Corpuscular Hemoglobin 32 pg (25-35) Mean Corpuscular Hemoglobin Concent 34 g/dL (31-37) Red Cell Distribution Width 16.7 % (11.5-14.5) Platelet Count 287 x10^3/uL (140-400) Neutrophils (%) (Auto) 84 % (31-73) Lymphocytes (%) (Auto) 8 % (24-48) Monocytes (%) (Auto) 6 % (0-9) Eosinophils (%) (Auto) 1 % (0-3) Basophils (%) (Auto) 1 % (0-3) Neutrophils # (Auto) 14.3 x10^3uL (1.8-7.7) Lymphocytes # (Auto) 1.4 x10^3/uL (1.0-4.8) Monocytes # (Auto) 1.0 x10^3/uL (0.0-1.1) Eosinophils # (Auto) 0.2 x10^3/uL (0.0-0.7) Basophils # (Auto) 0.1 x10^3/uL (0.0-0.2) Sodium Level 140 mmol/L (136-145) Potassium Level 3.9 mmol/L (3.5-5.1) Chloride Level 102 mmol/L (98-107) Carbon Dioxide Level 30 mmol/L (21-32) Anion Gap 8 (6-14) Blood Urea Nitrogen 26 mg/dL (7-20) Creatinine 3.1 mg/dL (0.6-1.0) Estimated GFR (Cockcroft-Gault) 15.8 BUN/Creatinine Ratio 8 (6-20) Glucose Level 79 mg/dL (70-99) Calcium Level 8.5 mg/dL (8.5-10.1) Total Bilirubin 0.4 mg/dL (0.2-1.0) Aspartate Amino Transf (AST/SGOT) 16 U/L (15-37) Alanine Aminotransferase (ALT/SGPT) 11 U/L (14-59) Alkaline Phosphatase 89 U/L (46-116) Total Protein 5.2 g/dL (6.4-8.2) Albumin 2.4 g/dL (3.4-5.0) Albumin/Globulin Ratio 0.9 (1.0-1.7) Test 02/05/18 07:49 Glucose (Fingerstick) 63 mg/dL (70-99) Microbiology 01/26/18 Blood Culture - Final, Complete NO GROWTH AFTER 5 DAYS 01/27/18 Anaerobic/Aerobic Culture - Final, Complete 01/27/18 Anaerobic Culture Result 1 (ROSALIND) - Final, Complete 01/27/18 Aerobic Culture - Final, Complete 01/27/18 Aerobic Culture Result 1 (ROSALIND) - Final, Complete 01/27/18 Antimicrobic Susceptibility - Final, Complete 01/27/18 Gram Stain - Final, Complete 01/27/18 Gram Stain Result 1 (ROSALIND) - Final, Complete 01/27/18 Gram Stain Result 2 (ROSALIND) - Final, Complete Medications Current Medications Hydromorphone HCl (Dilaudid) 2 mg 1X ONCE IV Last administered on 01/26/18at 22 :39; Start 01/26/18 at 22:00; Stop 01/26/18 at 22:01; Status DC Vancomycin HCl (Vanco Per Pharmacy) 1 each PRN DAILY PRN MC SEE COMMENTS Last administered on 01/31/18at 17:20; Start 01/26/18 at 22:45; Stop 02/01/18 at 11:41 ; Status DC Vancomycin HCl 1.75 gm/Sodium Chloride 500 ml @ 250 mls/hr 1X ONCE IV Last administered on 01/26/18at 23:53; Start 01/26/18 at 23:00; Stop 01/27/18 at 00:59 ; Status DC Ondansetron HCl (Zofran) 4 mg PRN Q8HRS PRN IV NAUSEA/VOMITING 1ST CHOICE; Start 01/26/18 at 23:15; Stop 01/27/18 at 23:14; Status DC Sodium Chloride 1,000 ml @ 75 mls/hr [id number] IV Last administered on at 00:39; Start 01/26/18 at 23:30; Stop 01/27/18 at 23:29; Status DC Pharmacy Consult (C.diff Med Screen By Rx) 1 each 1X ONCE MC ; Start 01/27/18 at 01:00; Stop 01/27/18 at 01:01; Status Cancel Influenza Virus Vaccine (Afluria Trivalent [id number] Syringe) 0.5 ml ONCE ONCE VAX IM Last administered on 01/27/18at 09:00; Start 01/27/18 at 09:00; Stop 01/27/18 at 09:01; Status DC Vancomycin HCl (Vancomycin Random Level) 1 each 1X ONCE MC Last administered on 01/28/18at 05:00; Start 01/28/18 at 05:00; Stop 01/28/18 at 05:01; Status DC Hydromorphone HCl (Dilaudid) 1 mg PRN Q3HRS PRN IV SEVERE PAIN Last administered on 02/05/18at 02:54; Start 01/27/18 at 03:30 Ondansetron HCl (Zofran) 4 mg PRN Q6HRS PRN IV NAUSEA/VOMITING; Start 01/27/18 at 10:45; Stop 01/27/18 at 18:00; Status DC Fentanyl Citrate (Fentanyl 2ml Vial) 25 mcg PRN Q5MIN PRN IV MILD PAIN; Start 01/27/18 at 10:45; Stop 01/27/18 at 18:00; Status DC Fentanyl Citrate (Fentanyl 2ml Vial) 50 mcg PRN Q5MIN PRN IV MODERATE TO SEVERE PAIN; Start 01/27/18 at 10:45; Stop 01/27/18 at 18:00; Status DC Morphine Sulfate (Morphine Sulfate) 1 mg PRN Q10MIN PRN IV SEVERE PAIN Last administered on 01/27/18at 16:28; Start 01/27/18 at 10:45; Stop 01/27/18 at 18:00 ; Status DC Ringer's Solution 1,000 ml @ 30 mls/hr Q24H IV Last administered on 01/27/18at 10:35; Start 01/27/18 at 10:35; Stop 01/27/18 at 19:36; Status DC Lidocaine HCl (Xylocaine-Mpf 1% 2ml Vial) 2 ml 1X PRN PRN ID IV START; Start 01/27/18 at 10:45; Stop 01/27/18 at 18:00; Status DC Hydromorphone HCl (Dilaudid) 0.5 mg PRN Q10MIN PRN IV SEV PAIN, Second choice Last administered on 01/27/18at 15:59; Start 01/27/18 at 10:45; Stop 01/27/18 at 18:00; Status DC Prochlorperazine Edisylate (Compazine) 5 mg PACU PRN PRN IV NAUSEA, MRX1; Start 01/27/18 at 10:45; Stop 01/27/18 at 18:00; Status DC Amiodarone HCl (Cordarone) 200 mg DAILY PO Last administered on 02/04/18at 14: 24; Start 01/27/18 at 12:30 Aspirin (Anthony Aspirin) 325 mg DAILY PO Last administered on 01/28/18at 09:13; Start 01/27/18 at 12:30; Stop 01/28/18 at 14:26; Status DC Carbamazepine (TEGretol) 200 mg BID PO Last administered on 02/04/18at 22:00; Start 01/27/18 at 12:30 Carvedilol (Coreg) 12.5 mg BIDWMEALS PO Last administered on 02/04/18 18:12; Start 01/27/18 at 12:30 Vitamin B Complex/ Vitamin C (Melly-Shabbir) 1 tab DAILY PO Last administered on at 14:20; Start 01/27/18 at 12:30 Furosemide (Lasix) 80 mg [id number] PO Last administered on 02/04/18at 14:21; Start 01/27/18 at 12:30 Insulin Glargine (Lantus) 22 units QHS SQ Last administered on 02/04/18at 22:05 ; Start 01/27/18 at 21:00 Morphine Sulfate (Ms Contin) 15 mg BID PO Last administered on 02/04/18at 22:01 ; Start 01/27/18 at 12:30 Nitroglycerin (Nitrostat) 0.4 mg PRN Q5MIN PRN SL CHEST PAIN; Start 01/27/18 at 12:00 Nystatin (Nystop) 1 susanna PRN BID PRN TP SKIN BREAKDOWN; Start 01/27/18 at 12:00 Tramadol HCl (Ultram) 50 mg PRN Q4HRS PRN PO HEADACHE; Start 01/27/18 at 12:00 Non-Formulary Medication (Albuterol Sulfate (Proventil Hfa Inhaler)) 2 puff BID PRN IH FOR ASTHMA; Start 01/27/18 at 12:00; Status UNV Atorvastatin Calcium (Lipitor) 80 mg QHS PO Last administered on 02/04/18at 22: 00; Start 01/27/18 at 21:00 Calcitriol (Rocaltrol) 0.25 mcg DAILY PO Last administered on 02/04/18 14:20 ; Start 01/27/18 at 12:30 Diltiazem HCl (Cardizem 24hr Cd) 120 mg DAILY PO Last administered on 14:20; Start 01/27/18 at 12:30 Erythromycin (E-Mycin) 250 mg BID PO Last administered on 02/04/18 22:00; Start 01/27/18 at 21:00 Fenofibrate (Lofibra) 134 mg QHS PO Last administered on 02/04/18 22:00; Start 01/27/18 at 21:00 Non-Formulary Medication (Fluconazole (Diflucan)) 100 mg PRN PO ; Start at 12:00; Status UNV Lidocaine (Lidoderm) 1 patch PRN DAILY PRN TD PAIN; Start 01/27/18 at 09:00 Niacin (Slo-Niacin) 500 mg QHS PO Last administered on 02/04/18at 22:00; Start 01/27/18 at 21:00 Ondansetron HCl (Zofran Odt) 4 mg PRN Q6HRS PRN PO NAUSEA/VOMITING; Start 01/27 at 12:15 Miscellaneous (Lidoderm Patch Removal) 1 ea QHS MC Last administered on at 21:00; Start 01/27/18 at 21:00 Albuterol Sulfate (Ventolin Neb Soln) 2.5 mg PRN BID PRN NEB SHORTNESS OF BREATH Last administered on 01/27/18at 21:59; Start 01/27/18 at 12:30 Lidocaine HCl (Lidocaine 1% 50ml Vial) 50 ml 1X ONCE INJ Last administered on 01/27/18at 14:06; Start 01/27/18 at 12:45; Stop 01/27/18 at 12:46; Status DC Hydromorphone HCl (Dilaudid) 2 mg STK-MED ONCE .ROUTE ; Start 01/27/18 at 12:36 ; Stop 01/27/18 at 12:38; Status DC Propofol 20 ml @ As Directed STK-MED ONCE IV ; Start 01/27/18 at 12:38; Stop at 12:39; Status DC Bacitracin 97519 unit/Sodium Chloride 3,000 ml @ 0 mls/hr 1X ONCE IR ; Start 01/27/18 at 13:15; Stop 01/27/18 at 13:16; Status Cancel Dexamethasone Sodium Phosphate (Decadron) 20 mg STK-MED ONCE .ROUTE ; Start 01/27/18 at 13:11; Stop 01/27/18 at 13:12; Status DC Ondansetron HCl (Zofran) 4 mg STK-MED ONCE .ROUTE ; Start 01/27/18 at 13:11; Stop 01/27/18 at 13:12; Status DC Sevoflurane (Ultane) 30 ml STK-MED ONCE IH ; Start 01/27/18 at 13:11; Stop 01/27 at 13:12; Status DC Bacitracin (Bacitracin) 50,000 unit STK-MED ONCE IRR Last administered on at 13:58; Start 01/27/18 at 12:14; Stop 01/27/18 at 13:16; Status DC Clopidogrel Bisulfate (Plavix) 75 mg DAILYWBKFT PO Last administered on at 09:13; Start 01/28/18 at 08:00; Stop 01/28/18 at 14:28; Status DC Hydromorphone HCl (Dilaudid) 2 mg STK-MED ONCE .ROUTE ; Start 01/27/18 at 15:38 ; Stop 01/27/18 at 15:40; Status DC Gentamicin Sulfate 235 mg/ Dextrose 105.875 ml @ 105.875 mls/hr 1X ONCE IV Last administered on 01/27/18at 19:56; Start 01/27/18 at 16:00; Stop 01/27/18 at 16:59; Status DC Lactobacillus Rhamnosus (Culturelle) 1 cap BID PO Last administered on at 22:00; Start 01/27/18 at 21:00 Cefepime HCl 1 gm/ Dextrose 50 ml @ 100 mls/hr DAILY IV ; Start 01/29/18 at 09: 00; Status UNV Metronidazole 100 ml @ 100 mls/hr Q12HR IV Last administered on 02/02/18at 21: 00; Start 01/28/18 at 10:00; Stop 02/03/18 at 10:49; Status DC Cefepime HCl (Maxipime) 1 gm Q24H IVP Last administered on 02/03/18at 10:54; Start 01/28/18 at 10:00; Stop 02/04/18 at 12:02; Status DC Lidocaine HCl (Xylocaine-Mpf 2% Vial) 2 ml STK-MED ONCE .ROUTE ; Start 01/28/18 at 11:41; Stop 01/28/18 at 11:42; Status DC Sodium Chloride 1,000 ml @ 1,000 mls/hr Q1H PRN IV hypotension; Start 01/28/18 at 12:09; Stop 01/28/18 at 18:08; Status DC Info (PHARMACY MONITORING -- do not chart) 1 each PRN DAILY PRN MC SEE COMMENTS ; Start 01/28/18 at 12:15; Status UNV Info (PHARMACY MONITORING -- do not chart) 1 each PRN DAILY PRN MC SEE COMMENTS ; Start 01/28/18 at 12:15; Stop 01/31/18 at 09:10; Status DC Lidocaine HCl (Xylocaine-Mpf 2% Vial) 2 ml 1X ONCE INJ ; Start 01/28/18 at 12: 15; Stop 01/28/18 at 12:21; Status DC Ticagrelor (Brilinta) 90 mg BID PO Last administered on 02/04/18at 22:00; Start 01/28/18 at 21:00 Diphenhydramine HCl (Benadryl) 25 mg PRN Q6HRS PRN PO ITCHING; Start 01/28/18 at 14:15 Aspirin (Ecotrin) 81 mg DAILYWBKFT PO Last administered on 02/03/18at 10:50; Start 01/29/18 at 08:00 Insulin Human Lispro (HumaLOG) 0-5 UNITS TIDWMEALS SQ Last administered on 03/14at 08:47; Start 01/28/18 at 17:00 Dextrose (Dextrose 50%-Water Syringe) 12.5 gm PRN Q15MIN PRN IV SEE COMMENTS Last administered on 02/05/18at 08:50; Start 01/28/18 at 14:45 Hydralazine HCl (Apresoline) 10 mg PRN TID PRN PO hypertension; Start 01/28/18 at 14:45 Oxycodone/ Acetaminophen (Percocet 10/325) 1 tab PRN Q4HRS PRN PO pain SEVERE Last administered on 02/03/18at 10:48; Start 01/29/18 at 07:45 Promethazine HCl (Phenergan Supp) 12.5 mg 1X ONCE MI ; Start 01/29/18 at 12:15 ; Stop 01/29/18 at 12:36; Status DC Promethazine HCl (Phenergan Im) 12.5 mg 1X ONCE IM ; Start 01/29/18 at 12:45; Stop 01/29/18 at 12:46; Status DC Lidocaine/ Epinephrine (LIDOCAINE 1%-EPI 1:100,000 Multi-Dose) 20 ml STK-MED ONCE .ROUTE ; Start 01/29/18 at 12:45; Stop 01/29/18 at 12:47; Status DC Heparin Sodium (Porcine) (Hep Lock Adult) 500 unit STK-MED ONCE IV ; Start 01/29 at 12:45; Stop 01/29/18 at 12:47; Status DC Morphine Sulfate (Morphine Sulfate) 10 mg STK-MED ONCE .ROUTE ; Start 01/29/18 at 13:23; Stop 01/29/18 at 13:25; Status DC Midazolam HCl (Versed) 2 mg STK-MED ONCE .ROUTE ; Start 01/29/18 at 13:23; Stop 01/29/18 at 13:25; Status DC Morphine Sulfate (Morphine Sulfate) 1 mg PRN Q10MIN PRN IV SEVERE PAIN Last administered on 02/01/18at 15:46; Start 02/01/18 at 07:00; Stop 02/02/18 at 06:59 ; Status DC Ringer's Solution 1,000 ml @ 30 mls/hr Q24H IV ; Start 02/01/18 at 07:00; Stop 02/01/18 at 18:59; Status DC Lidocaine HCl (Xylocaine-Mpf 1% 2ml Vial) 2 ml PRN 1X PRN ID PRIOR TO IV START ; Start 02/01/18 at 07:00; Stop 02/02/18 at 06:59; Status DC Hydromorphone HCl (Dilaudid) 0.5 mg PRN Q10MIN PRN IV SEV PAIN, Second choice Last administered on 02/01/18at 16:08; Start 02/01/18 at 07:00; Stop 02/02/18 at 06:59; Status DC Prochlorperazine Edisylate (Compazine) 5 mg PACU PRN PRN IV NAUSEA, MRX1; Start 02/01/18 at 07:00; Stop 02/02/18 at 06:59; Status DC Lidocaine/ Epinephrine (LIDOCAINE 1%-EPI 1:100,000 Multi-Dose) 8 ml 1X ONCE IJ Last administered on 01/29/18at 14:01; Start 01/29/18 at 14:00; Stop 01/29/18 at 14:17; Status DC Heparin Sodium (Porcine) (Hep Lock Adult) 500 unit 1X ONCE IV Last administered on 01/29/18at 14:04; Start 01/29/18 at 14:00; Stop 01/29/18 at 14:17 ; Status DC Morphine Sulfate (Morphine Sulfate) 5 mg 1X ONCE IV Last administered on at 14:01; Start 01/29/18 at 14:00; Stop 01/29/18 at 14:17; Status DC Ondansetron HCl (Zofran) 4 mg PRN Q6HRS PRN IV NAUSEA/VOMITING 1ST CHOICE Last administered on 02/02/18at 09:51; Start 01/29/18 at 14:45 Vancomycin HCl 500 mg/Sodium Chloride 100 ml @ 100 mls/hr 1X ONCE IV Last administered on 01/29/18at 21:04; Start 01/29/18 at 18:00; Stop 01/29/18 at 18:59 ; Status DC Sodium Chloride 1,000 ml @ 1,000 mls/hr Q1H PRN IV hypotension; Start 01/30/18 at 13:09; Stop 01/30/18 at 19:08; Status DC Sodium Chloride (Normal Saline Flush) 10 ml 1X PRN PRN IV AP catheter pack; Start 01/30/18 at 13:15; Stop 01/31/18 at 13:14; Status DC Sodium Chloride (Normal Saline Flush) 10 ml 1X PRN PRN IV COURT BAIL[place] catheter pack; Start 01/30/18 at 13:15; Stop 01/31/18 at 13:14; Status DC Sodium Chloride 1,000 ml @ 400 mls/hr Q2H30M PRN IV PATENCY; Start 01/30/18 at 13:09; Stop 01/31/18 at 01:08; Status DC Info (PHARMACY MONITORING -- do not chart) 1 each PRN DAILY PRN MC SEE COMMENTS ; Start 01/30/18 at 13:15; Stop 01/30/18 at 13:17; Status DC Info (PHARMACY MONITORING -- do not chart) 1 each PRN DAILY PRN MC SEE COMMENTS ; Start 01/30/18 at 13:15; Stop 02/04/18 at 07:27; Status DC Lidocaine HCl (Lidocaine 1% 50ml Vial) 50 ml 1X ONCE INJ ; Start 01/30/18 at 15 :45; Stop 01/30/18 at 15:46; Status DC Vancomycin HCl 500 mg/Sodium Chloride 100 ml @ 100 mls/hr ONCE ONCE IV Last administered on 01/30/18at 20:49; Start 01/30/18 at 18:00; Stop 01/30/18 at 18:59 ; Status DC Cefazolin Sodium 1 gm/Sodium Chloride 500 ml @ 500 mls/hr 1X ONCE IRR ; Start 02/01/18 at 06:00; Stop 02/01/18 at 06:59; Status DC Lidocaine HCl (Xylocaine-Mpf 2% Vial) 2 ml STK-MED ONCE .ROUTE ; Start 01/28/18 at 12:00; Stop 02/01/18 at 08:30; Status DC Darbepoetin Mauricio (Aranesp) 60 mcg [id number] SQ Last administered on 02/01/18at 21 :38; Start 02/01/18 at 21:00 Cellulose (Surgicel Fibrillar 1x2) 1 each STK-MED ONCE .ROUTE ; Start 02/01/18 at 12:05; Stop 02/01/18 at 13:06; Status DC Lidocaine HCl (Xylocaine 1% Pf 30ml Vial) 30 ml 1X ONCE INJ ; Start 02/01/18 at 13:15; Stop 02/01/18 at 13:18; Status DC Sodium Chloride 1,000 ml @ 75 mls/hr [id number] IV Last administered on at 00:15; Start 02/01/18 at 13:45; Stop 02/02/18 at 16:43; Status DC Morphine Sulfate (Morphine Sulfate) 10 mg STK-MED ONCE .ROUTE ; Start 02/01/18 at 14:24; Stop 02/01/18 at 14:25; Status DC Midazolam HCl (Versed) 2 mg STK-MED ONCE .ROUTE ; Start 02/01/18 at 14:24; Stop 02/01/18 at 14:25; Status DC Midazolam HCl (Versed) 2 mg STK-MED ONCE .ROUTE ; Start 02/01/18 at 14:25; Stop 02/01/18 at 14:26; Status DC Propofol 20 ml @ As Directed STK-MED ONCE IV ; Start 02/01/18 at 14:25; Stop at 14:26; Status DC Dexamethasone Sodium Phosphate (Decadron) 20 mg STK-MED ONCE .ROUTE ; Start 02/01/18 at 14:25; Stop 02/01/18 at 14:26; Status DC Ondansetron HCl (Zofran) 4 mg STK-MED ONCE .ROUTE ; Start 02/01/18 at 14:25; Stop 02/01/18 at 14:26; Status DC Bacitracin (Bacitracin) 50,000 unit STK-MED ONCE IRR Last administered on at 14:55; Start 02/01/18 at 13:32; Stop 02/01/18 at 14:32; Status DC Vancomycin HCl 500 mg/Sodium Chloride 100 ml @ 100 mls/hr [id number] IV Last administered on 02/02/18at 16:15; Start 02/02/18 at 16:00; Stop 02/04/18 at 12: 02; Status DC Sodium Chloride 1,000 ml @ 1,000 mls/hr Q1H PRN IV hypotension; Start 02/02/18 at 09:39; Stop 02/02/18 at 15:38; Status DC Albumin Human 200 ml @ 200 mls/hr 1X PRN PRN IV Hypotension; Start 02/02/18 at 09:45; Stop 02/02/18 at 15:44; Status DC Sodium Chloride 1,000 ml @ 400 mls/hr Q2H30M PRN IV PATENCY; Start 02/02/18 at 09:39; Stop 02/02/18 at 21:38; Status DC Info (PHARMACY MONITORING -- do not chart) 1 each PRN DAILY PRN MC SEE COMMENTS ; Start 02/02/18 at 09:45; Stop 02/04/18 at 07:28; Status DC Info (PHARMACY MONITORING -- do not chart) 1 each PRN DAILY PRN MC SEE COMMENTS ; Start 02/02/18 at 09:45; Status UNV Prochlorperazine Edisylate (Compazine) 10 mg PRN Q6HRS PRN IV NAUSEA/VOMITING 2ND CHOICE Last administered on 02/02/18at 23:23; Start 02/02/18 at 11:30 Vancomycin HCl (Vanco Per Pharmacy) 1 each PRN DAILY PRN MC SEE COMMENTS Last administered on 02/02/18at 13:57; Start 02/02/18 at 14:00; Stop 02/04/18 at 12: 02; Status DC Famotidine (Pepcid Vial) 20 mg DAILY IVP Last administered on 02/04/18at 14:25 ; Start 02/03/18 at 10:00 Alteplase, Recombinant (Cathflo) 2 mg 1X ONCE INT CAT Last administered on 03/14at 02:56; Start 02/04/18 at 03:00; Stop 02/04/18 at 03:01; Status DC Sodium Chloride 1,000 ml @ 1,000 mls/hr Q1H PRN IV hypotension; Start at 07:15; Stop 02/04/18 at 13:14; Status DC Albumin Human 200 ml @ 200 mls/hr 1X PRN PRN IV Hypotension Last administered on 02/04/18at 11:26; Start 02/04/18 at 07:15; Stop 02/04/18 at 13:14; Status DC Acetaminophen (Tylenol) 500 mg 1X PRN PRN PO MILD PAIN / TEMP; Start 02/04/18 at 07:15; Stop 02/05/18 at 07:14; Status DC Diphenhydramine HCl (Benadryl) 25 mg 1X PRN PRN IV ITCHING; Start 02/04/18 at 07:15; Stop 02/05/18 at 07:14; Status DC Diphenhydramine HCl (Benadryl) 25 mg 1X PRN PRN IV ITCHING; Start 02/04/18 at 07:15; Stop 02/05/18 at 07:14; Status DC Sodium Chloride 1,000 ml @ 400 mls/hr Q2H30M PRN IV PATENCY; Start 02/04/18 at 07:15; Stop 02/04/18 at 19:14; Status DC Info (PHARMACY MONITORING -- do not chart) 1 each PRN DAILY PRN MC SEE COMMENTS ; Start 02/04/18 at 07:15 Lidocaine HCl (Xylocaine-Mpf 2% Vial) 2 ml STK-MED ONCE .ROUTE ; Start at 09:43; Stop 02/04/18 at 09:44; Status DC Docusate Sodium (Colace) 100 mg PRN DAILY PRN PO CONSTIPATION; Start 02/04/18 at 10:30 Ceftriaxone Sodium 2 gm/ Dextrose 100 ml @ 200 mls/hr Q24H IV Last administered on 02/04/18at 14:24; Start 02/04/18 at 13:00 Morphine Sulfate (Morphine Sulfate) 1 mg PRN Q10MIN PRN IV SEVERE PAIN; Start 02/05/18 at 07:00; Stop 02/06/18 at 06:59 Ringer's Solution 1,000 ml @ 30 mls/hr Q24H IV ; Start 02/05/18 at 07:00; Stop 02/05/18 at 18:59 Lidocaine HCl (Xylocaine-Mpf 1% 2ml Vial) 2 ml PRN 1X PRN ID IV START; Start 02/05/18 at 07:00; Stop 02/06/18 at 06:59 Hydromorphone HCl (Dilaudid) 0.5 mg PRN Q10MIN PRN IV SEV PAIN, Second choice; Start 02/05/18 at 07:00; Stop 02/06/18 at 06:59 Prochlorperazine Edisylate (Compazine) 5 mg PACU PRN PRN IV NAUSEA, MRX1; Start 02/05/18 at 07:00; Stop 02/06/18 at 06:59 Lidocaine HCl (Xylocaine-Mpf 2% Vial) 2 ml STK-MED ONCE .ROUTE ; Start at 10:00; Stop 02/05/18 at 08:19; Status DC Sodium Chloride 1,000 ml @ 75 mls/hr [id number] IV ; Start 02/05/18 at 10:30 Active Scripts Active Percocet 10-325 Mg Tablet (Oxycodone/Acetaminophen) 1 Each Tablet 1 Tab PO Q4HRS Brilinta (Ticagrelor) 90 Mg Tablet 90 Mg PO BID 30 Days Morphine Sulfate Er (Morphine Sulfate) 15 Mg Tablet.er 15 Mg PO BID Reported Brilinta (Ticagrelor) 90 Mg Tablet 90 Mg PO BID Lidocaine 1 Each Adh..patch 1 Each TP PRN DAILY PRN Calcitriol 0.25 Mcg Capsule 1 Cap PO DAILY Tegretol (Carbamazepine) 200 Mg Tablet 1 Tab PO BID Tramadol Hcl 50 Mg Tablet 50 Mg PO Q4HRS PRN Lantus Solostar (Insulin Glargine,Hum.rec.anlog) 100 Unit/1 Ml Insuln.pen 22 Unit SQ QHS Diflucan (Fluconazole) 100 Mg Tablet 100 Mg PO PRN Carvedilol 3.125 Mg Tablet 12.5 Mg PO BID Erythromycin (Erythromycin Base) 250 Mg Capsule.dr 250 Mg PO BID Cardizem Cd (Diltiazem Hcl) 180 Mg Cap.er.24h 120 Mg PO DAILY Amiodarone Hcl 200 Mg Tablet 1 Tab PO DAILY Nystatin 15 Gm Powder 1 Susanna TP PRN BID PRN Proventil Hfa Inhaler (Albuterol Sulfate) 6.7 Gm Hfa.aer.ad 2 Puff IH BID PRN Zofran (Ondansetron Hcl) 4 Mg Tablet 4 Mg PO Q6-8HRS PRN Nephro-Shabbir Tablet (Folic Acid/Vitamin B Comp W-C) 0.8 Mg Tablet 1 Tab PO DAILY Tricor (Fenofibrate Nanocrystallized) 145 Mg Tablet 1 Tab PO HS Lipitor (Atorvastatin Calcium) 80 Mg Tablet 80 Mg PO HS Niacin 500 Mg Tablet 500 Mg PO HS Novolog (Insulin Aspart) 100 Unit/1 Ml Cartridge 0 SQ TIDAC sliding scale Aspirin 325 Mg Tablet 325 Mg PO DAILY Furosemide 80 Mg Tablet 80 Mg PO BID Docusate Sodium 100 Mg Capsule 1 Cap PO PRN PRN Nitrostat (Nitroglycerin) 0.4 Mg Tab.subl 0.4 Mg SL PRN Q5MIN PRN Take as needed for chest pain Vitals/I & O Vital Sign - Last 24 Hours 02/04/18 02/04/18 02/04/18 02/04/18 14:20 14:21 14:24 14:25 Pulse 85 85 85 B/P (MAP) 141/58 141/58 141/58 O2 Delivery Room Air 02/04/18 02/04/18 02/04/18 02/04/18 15:00 18:12 18:12 19:00 Temp 97.5 97.9 97.5 97.9 Pulse 102 85 88 Resp 14 18 B/P (MAP) 142/56 (84) 141/58 139/82 (101) Pulse Ox 99 95 O2 Delivery Room Air Room Air Room Air 02/04/18 02/04/18 02/04/18 02/05/18 20:00 22:01 23:00 02:16 Temp 97.8 97.8 Pulse 91 Resp 17 B/P (MAP) 149/56 (87) Pulse Ox 98 O2 Delivery Room Air Room Air Room Air Room Air 02/05/18 02/05/18 02/05/18 02/05/18 02:54 03:00 03:44 07:00 Temp 98.3 98.0 98.3 98.0 Pulse 68 81 Resp 18 18 B/P (MAP) 128/60 (82) 120/48 (72) Pulse Ox 96 100 O2 Delivery Room Air Room Air Room Air 2L PRN 02/05/18 02/05/18 02/05/18 02/05/18 08:00 10:07 10:13 10:16 Temp 100.0 100.0 100.0 100.0 Pulse 90 90 Resp 20 20 B/P (MAP) 119/51 Pulse Ox 98 O2 Delivery Room Air Room Air O2 Flow Rate 2.0 Intake and Output 02/04/18 02/04/18 02/05/18 15:00 23:00 07:00 Intake Total 360 ml 360 ml Output Total 50 ml 0 ml Balance -50 ml 360 ml 360 ml PAPITO REZA III DO Feb 05, 2018 10:59
--- NOTE | 2018-02-05 11:22 | PDOC ---
PROGRESS NOTES Subjective Subjective Patient seen in Outpatient/GI department awaiting EGD and wound vac change. Patient continues to complain of nausea. Objective Objective Vital Signs Date Time Temp Pulse Resp B/P (MAP) Pulse Ox O2 Delivery O2 Flow Rate FiO2 02/05/18 10:16 100.0 90 20 98 100.0 02/05/18 10:13 Room Air 2.0 02/05/18 10:07 119/51 Intake and Output 02/05/18 07:00 Intake Total 720 ml Output Total 50 ml Balance 670 ml Intake Oral 720 ml Output Urine Total 50 ml # Voids 1 Physical Exam Physical Exam Awake and alert, mild distress HRR Non-labored respirations Right leg wound vac in place, some pink granulation tissue, areas dusky tissue, small area of active bleeding initiated by removing sponge, stopped prior to placement of wound vac sponger. Right leg with erythema and swelling. Palpable graft pulse. Assessment Assessment Problems Medical Problems: (1) Chronic renal failure Status: Acute Plan Plan of Care Assessment/Plan: 1. Severe PAD - POD#29 Right common femoral & profunda artery endarterectomy; Right common femoral artery to below knee pop bypass; Right leg GSV harvest * patent bypass graft * continue antiplatelet therapy, discussed with GI after EGD ok to continue. * consider removing alberto prior to discharge next week as long as swelling and cellulitis continues to improve. 2. Coffee-ground emesis * Patient scheduled for EGD. * Patient continues to have Anemia Hgb 6.4 3. Surgical incision infection - POD#9/#4 Right groin wound debridement with muscle flap and wound vac dressing application. * C/S + Klebsiella - continue IV antibiotic therapy as per ID. * continue wound vac therapy with dressing changes M-W-F's 4. Discharge pending for next week to LT[facility]. Patient will need follow up in [facility] as well as with Vascular Surgery. Comment Review of Relevant I have reviewed the following items bert (where applicable) has been applied. Labs Laboratory Tests Test 02/03/18 17:51 02/03/18 20:18 02/04/18 03:35 02/04/18 07:45 Glucose (Fingerstick) 155 mg/dL (70-99) 164 mg/dL (70-99) 343 mg/dL (70-99) White Blood Count 16.3 x10^3/uL (4.0-11.0) Red Blood Count 2.34 x10^6/uL (3.50-5.40) Hemoglobin 7.4 g/dL (12.0-15.5) Hematocrit 22.5 % (36.0-47.0) Mean Corpuscular Volume 96 fL (79-100) Mean Corpuscular Hemoglobin 32 pg (25-35) Mean Corpuscular Hemoglobin Concent 33 g/dL (31-37) Red Cell Distribution Width 17.2 % (11.5-14.5) Platelet Count 347 x10^3/uL (140-400) Neutrophils (%) (Auto) 82 % (31-73) Lymphocytes (%) (Auto) 11 % (24-48) Monocytes (%) (Auto) 6 % (0-9) Eosinophils (%) (Auto) 1 % (0-3) Basophils (%) (Auto) 1 % (0-3) Neutrophils # (Auto) 13.4 x10^3uL (1.8-7.7) Lymphocytes # (Auto) 1.7 x10^3/uL (1.0-4.8) Monocytes # (Auto) 1.0 x10^3/uL (0.0-1.1) Eosinophils # (Auto) 0.1 x10^3/uL (0.0-0.7) Basophils # (Auto) 0.1 x10^3/uL (0.0-0.2) Sodium Level 139 mmol/L (136-145) Potassium Level 4.8 mmol/L (3.5-5.1) Chloride Level 101 mmol/L (98-107) Carbon Dioxide Level 26 mmol/L (21-32) Anion Gap 12 (6-14) Blood Urea Nitrogen 56 mg/dL (7-20) Creatinine 4.8 mg/dL (0.6-1.0) Estimated GFR (Cockcroft-Gault) 9.5 BUN/Creatinine Ratio 12 (6-20) Glucose Level 328 mg/dL (70-99) Calcium Level 7.9 mg/dL (8.5-10.1) Total Bilirubin 0.3 mg/dL (0.2-1.0) Aspartate Amino Transf (AST/SGOT) 12 U/L (15-37) Alanine Aminotransferase (ALT/SGPT) 10 U/L (14-59) Alkaline Phosphatase 119 U/L (46-116) Total Protein 4.9 g/dL (6.4-8.2) Albumin 1.7 g/dL (3.4-5.0) Albumin/Globulin Ratio 0.5 (1.0-1.7) Test 02/04/18 14:06 02/04/18 17:06 02/04/18 21:20 02/05/18 04:35 Glucose (Fingerstick) 146 mg/dL (70-99) 131 mg/dL (70-99) 113 mg/dL (70-99) White Blood Count 17.1 x10^3/uL (4.0-11.0) Red Blood Count 1.99 x10^6/uL (3.50-5.40) Hemoglobin 6.4 g/dL (12.0-15.5) Hematocrit 19.0 % (36.0-47.0) Mean Corpuscular Volume 94 fL (79-100) Mean Corpuscular Hemoglobin 32 pg (25-35) Mean Corpuscular Hemoglobin Concent 34 g/dL (31-37) Red Cell Distribution Width 16.7 % (11.5-14.5) Platelet Count 287 x10^3/uL (140-400) Neutrophils (%) (Auto) 84 % (31-73) Lymphocytes (%) (Auto) 8 % (24-48) Monocytes (%) (Auto) 6 % (0-9) Eosinophils (%) (Auto) 1 % (0-3) Basophils (%) (Auto) 1 % (0-3) Neutrophils # (Auto) 14.3 x10^3uL (1.8-7.7) Lymphocytes # (Auto) 1.4 x10^3/uL (1.0-4.8) Monocytes # (Auto) 1.0 x10^3/uL (0.0-1.1) Eosinophils # (Auto) 0.2 x10^3/uL (0.0-0.7) Basophils # (Auto) 0.1 x10^3/uL (0.0-0.2) Sodium Level 140 mmol/L (136-145) Potassium Level 3.9 mmol/L (3.5-5.1) Chloride Level 102 mmol/L (98-107) Carbon Dioxide Level 30 mmol/L (21-32) Anion Gap 8 (6-14) Blood Urea Nitrogen 26 mg/dL (7-20) Creatinine 3.1 mg/dL (0.6-1.0) Estimated GFR (Cockcroft-Gault) 15.8 BUN/Creatinine Ratio 8 (6-20) Glucose Level 79 mg/dL (70-99) Calcium Level 8.5 mg/dL (8.5-10.1) Total Bilirubin 0.4 mg/dL (0.2-1.0) Aspartate Amino Transf (AST/SGOT) 16 U/L (15-37) Alanine Aminotransferase (ALT/SGPT) 11 U/L (14-59) Alkaline Phosphatase 89 U/L (46-116) Total Protein 5.2 g/dL (6.4-8.2) Albumin 2.4 g/dL (3.4-5.0) Albumin/Globulin Ratio 0.9 (1.0-1.7) Test 02/05/18 07:49 Glucose (Fingerstick) 63 mg/dL (70-99) Laboratory Tests Test 02/04/18 14:06 02/04/18 17:06 02/04/18 21:20 02/05/18 04:35 Glucose (Fingerstick) 146 mg/dL (70-99) 131 mg/dL (70-99) 113 mg/dL (70-99) White Blood Count 17.1 x10^3/uL (4.0-11.0) Red Blood Count 1.99 x10^6/uL (3.50-5.40) Hemoglobin 6.4 g/dL (12.0-15.5) Hematocrit 19.0 % (36.0-47.0) Mean Corpuscular Volume 94 fL (79-100) Mean Corpuscular Hemoglobin 32 pg (25-35) Mean Corpuscular Hemoglobin Concent 34 g/dL (31-37) Red Cell Distribution Width 16.7 % (11.5-14.5) Platelet Count 287 x10^3/uL (140-400) Neutrophils (%) (Auto) 84 % (31-73) Lymphocytes (%) (Auto) 8 % (24-48) Monocytes (%) (Auto) 6 % (0-9) Eosinophils (%) (Auto) 1 % (0-3) Basophils (%) (Auto) 1 % (0-3) Neutrophils # (Auto) 14.3 x10^3uL (1.8-7.7) Lymphocytes # (Auto) 1.4 x10^3/uL (1.0-4.8) Monocytes # (Auto) 1.0 x10^3/uL (0.0-1.1) Eosinophils # (Auto) 0.2 x10^3/uL (0.0-0.7) Basophils # (Auto) 0.1 x10^3/uL (0.0-0.2) Sodium Level 140 mmol/L (136-145) Potassium Level 3.9 mmol/L (3.5-5.1) Chloride Level 102 mmol/L (98-107) Carbon Dioxide Level 30 mmol/L (21-32) Anion Gap 8 (6-14) Blood Urea Nitrogen 26 mg/dL (7-20) Creatinine 3.1 mg/dL (0.6-1.0) Estimated GFR (Cockcroft-Gault) 15.8 BUN/Creatinine Ratio 8 (6-20) Glucose Level 79 mg/dL (70-99) Calcium Level 8.5 mg/dL (8.5-10.1) Total Bilirubin 0.4 mg/dL (0.2-1.0) Aspartate Amino Transf (AST/SGOT) 16 U/L (15-37) Alanine Aminotransferase (ALT/SGPT) 11 U/L (14-59) Alkaline Phosphatase 89 U/L (46-116) Total Protein 5.2 g/dL (6.4-8.2) Albumin 2.4 g/dL (3.4-5.0) Albumin/Globulin Ratio 0.9 (1.0-1.7) Test 02/05/18 07:49 Glucose (Fingerstick) 63 mg/dL (70-99) Microbiology 01/26/18 Blood Culture - Final, Complete NO GROWTH AFTER 5 DAYS 01/27/18 Anaerobic/Aerobic Culture - Final, Complete 01/27/18 Anaerobic Culture Result 1 (ROSALIND) - Final, Complete 01/27/18 Aerobic Culture - Final, Complete 01/27/18 Aerobic Culture Result 1 (ROSALIND) - Final, Complete 01/27/18 Antimicrobic Susceptibility - Final, Complete 01/27/18 Gram Stain - Final, Complete 01/27/18 Gram Stain Result 1 (ROSALIND) - Final, Complete 01/27/18 Gram Stain Result 2 (ROSALIND) - Final, Complete Medications Current Medications Hydromorphone HCl (Dilaudid) 2 mg 1X ONCE IV Last administered on 01/26/18at 22 :39; Start 01/26/18 at 22:00; Stop 01/26/18 at 22:01; Status DC Vancomycin HCl (Vanco Per Pharmacy) 1 each PRN DAILY PRN MC SEE COMMENTS Last administered on 01/31/18at 17:20; Start 01/26/18 at 22:45; Stop 02/01/18 at 11:41 ; Status DC Vancomycin HCl 1.75 gm/Sodium Chloride 500 ml @ 250 mls/hr 1X ONCE IV Last administered on 01/26/18at 23:53; Start 01/26/18 at 23:00; Stop 01/27/18 at 00:59 ; Status DC Ondansetron HCl (Zofran) 4 mg PRN Q8HRS PRN IV NAUSEA/VOMITING 1ST CHOICE; Start 01/26/18 at 23:15; Stop 01/27/18 at 23:14; Status DC Sodium Chloride 1,000 ml @ 75 mls/hr [id number] IV Last administered on at 00:39; Start 01/26/18 at 23:30; Stop 01/27/18 at 23:29; Status DC Pharmacy Consult (C.diff Med Screen By Rx) 1 each 1X ONCE MC ; Start 01/27/18 at 01:00; Stop 01/27/18 at 01:01; Status Cancel Influenza Virus Vaccine (Afluria Trivalent [id number] Syringe) 0.5 ml ONCE ONCE VAX IM Last administered on 01/27/18at 09:00; Start 01/27/18 at 09:00; Stop 01/27/18 at 09:01; Status DC Vancomycin HCl (Vancomycin Random Level) 1 each 1X ONCE MC Last administered on 01/28/18at 05:00; Start 01/28/18 at 05:00; Stop 01/28/18 at 05:01; Status DC Hydromorphone HCl (Dilaudid) 1 mg PRN Q3HRS PRN IV SEVERE PAIN Last administered on 02/05/18at 02:54; Start 01/27/18 at 03:30 Ondansetron HCl (Zofran) 4 mg PRN Q6HRS PRN IV NAUSEA/VOMITING; Start 01/27/18 at 10:45; Stop 01/27/18 at 18:00; Status DC Fentanyl Citrate (Fentanyl 2ml Vial) 25 mcg PRN Q5MIN PRN IV MILD PAIN; Start 01/27/18 at 10:45; Stop 01/27/18 at 18:00; Status DC Fentanyl Citrate (Fentanyl 2ml Vial) 50 mcg PRN Q5MIN PRN IV MODERATE TO SEVERE PAIN; Start 01/27/18 at 10:45; Stop 01/27/18 at 18:00; Status DC Morphine Sulfate (Morphine Sulfate) 1 mg PRN Q10MIN PRN IV SEVERE PAIN Last administered on 01/27/18at 16:28; Start 01/27/18 at 10:45; Stop 01/27/18 at 18:00 ; Status DC Ringer's Solution 1,000 ml @ 30 mls/hr Q24H IV Last administered on 01/27/18at 10:35; Start 01/27/18 at 10:35; Stop 01/27/18 at 19:36; Status DC Lidocaine HCl (Xylocaine-Mpf 1% 2ml Vial) 2 ml 1X PRN PRN ID IV START; Start 01/27/18 at 10:45; Stop 01/27/18 at 18:00; Status DC Hydromorphone HCl (Dilaudid) 0.5 mg PRN Q10MIN PRN IV SEV PAIN, Second choice Last administered on 01/27/18at 15:59; Start 01/27/18 at 10:45; Stop 01/27/18 at 18:00; Status DC Prochlorperazine Edisylate (Compazine) 5 mg PACU PRN PRN IV NAUSEA, MRX1; Start 01/27/18 at 10:45; Stop 01/27/18 at 18:00; Status DC Amiodarone HCl (Cordarone) 200 mg DAILY PO Last administered on 02/04/18at 14: 24; Start 01/27/18 at 12:30 Aspirin (Anthony Aspirin) 325 mg DAILY PO Last administered on 01/28/18at 09:13; Start 01/27/18 at 12:30; Stop 01/28/18 at 14:26; Status DC Carbamazepine (TEGretol) 200 mg BID PO Last administered on 02/04/18 22:00; Start 01/27/18 at 12:30 Carvedilol (Coreg) 12.5 mg BIDWMEALS PO Last administered on 02/04/18 18:12; Start 01/27/18 at 12:30 Vitamin B Complex/ Vitamin C (Melly-Shabbir) 1 tab DAILY PO Last administered on 14:20; Start 01/27/18 at 12:30 Furosemide (Lasix) 80 mg [id number] PO Last administered on 02/04/18 14:21; Start 01/27/18 at 12:30 Insulin Glargine (Lantus) 22 units QHS SQ Last administered on 02/04/18 22:05 ; Start 01/27/18 at 21:00 Morphine Sulfate (Ms Contin) 15 mg BID PO Last administered on 02/04/18 22:01 ; Start 01/27/18 at 12:30 Nitroglycerin (Nitrostat) 0.4 mg PRN Q5MIN PRN SL CHEST PAIN; Start 01/27/18 at 12:00 Nystatin (Nystop) 1 susanna PRN BID PRN TP SKIN BREAKDOWN; Start 01/27/18 at 12:00 Tramadol HCl (Ultram) 50 mg PRN Q4HRS PRN PO HEADACHE; Start 01/27/18 at 12:00 Non-Formulary Medication (Albuterol Sulfate (Proventil Hfa Inhaler)) 2 puff BID PRN IH FOR ASTHMA; Start 01/27/18 at 12:00; Status UNV Atorvastatin Calcium (Lipitor) 80 mg QHS PO Last administered on 02/04/18 22: 00; Start 01/27/18 at 21:00 Calcitriol (Rocaltrol) 0.25 mcg DAILY PO Last administered on 02/04/18 14:20 ; Start 01/27/18 at 12:30 Diltiazem HCl (Cardizem 24hr Cd) 120 mg DAILY PO Last administered on 14:20; Start 01/27/18 at 12:30 Erythromycin (E-Mycin) 250 mg BID PO Last administered on 02/04/18 22:00; Start 01/27/18 at 21:00 Fenofibrate (Lofibra) 134 mg QHS PO Last administered on 02/04/18at 22:00; Start 01/27/18 at 21:00 Non-Formulary Medication (Fluconazole (Diflucan)) 100 mg PRN PO ; Start at 12:00; Status UNV Lidocaine (Lidoderm) 1 patch PRN DAILY PRN TD PAIN; Start 01/27/18 at 09:00 Niacin (Slo-Niacin) 500 mg QHS PO Last administered on 02/04/18at 22:00; Start 01/27/18 at 21:00 Ondansetron HCl (Zofran Odt) 4 mg PRN Q6HRS PRN PO NAUSEA/VOMITING; Start 01/27 at 12:15 Miscellaneous (Lidoderm Patch Removal) 1 ea QHS MC Last administered on at 21:00; Start 01/27/18 at 21:00 Albuterol Sulfate (Ventolin Neb Soln) 2.5 mg PRN BID PRN NEB SHORTNESS OF BREATH Last administered on 01/27/18at 21:59; Start 01/27/18 at 12:30 Lidocaine HCl (Lidocaine 1% 50ml Vial) 50 ml 1X ONCE INJ Last administered on 01/27/18at 14:06; Start 01/27/18 at 12:45; Stop 01/27/18 at 12:46; Status DC Hydromorphone HCl (Dilaudid) 2 mg STK-MED ONCE .ROUTE ; Start 01/27/18 at 12:36 ; Stop 01/27/18 at 12:38; Status DC Propofol 20 ml @ As Directed STK-MED ONCE IV ; Start 01/27/18 at 12:38; Stop at 12:39; Status DC Bacitracin 20550 unit/Sodium Chloride 3,000 ml @ 0 mls/hr 1X ONCE IR ; Start 01/27/18 at 13:15; Stop 01/27/18 at 13:16; Status Cancel Dexamethasone Sodium Phosphate (Decadron) 20 mg STK-MED ONCE .ROUTE ; Start 01/27/18 at 13:11; Stop 01/27/18 at 13:12; Status DC Ondansetron HCl (Zofran) 4 mg STK-MED ONCE .ROUTE ; Start 01/27/18 at 13:11; Stop 01/27/18 at 13:12; Status DC Sevoflurane (Ultane) 30 ml STK-MED ONCE IH ; Start 01/27/18 at 13:11; Stop 01/27 at 13:12; Status DC Bacitracin (Bacitracin) 50,000 unit STK-MED ONCE IRR Last administered on at 13:58; Start 01/27/18 at 12:14; Stop 01/27/18 at 13:16; Status DC Clopidogrel Bisulfate (Plavix) 75 mg DAILYWBKFT PO Last administered on at 09:13; Start 01/28/18 at 08:00; Stop 01/28/18 at 14:28; Status DC Hydromorphone HCl (Dilaudid) 2 mg STK-MED ONCE .ROUTE ; Start 01/27/18 at 15:38 ; Stop 01/27/18 at 15:40; Status DC Gentamicin Sulfate 235 mg/ Dextrose 105.875 ml @ 105.875 mls/hr 1X ONCE IV Last administered on 01/27/18at 19:56; Start 01/27/18 at 16:00; Stop 01/27/18 at 16:59; Status DC Lactobacillus Rhamnosus (Culturelle) 1 cap BID PO Last administered on at 22:00; Start 01/27/18 at 21:00 Cefepime HCl 1 gm/ Dextrose 50 ml @ 100 mls/hr DAILY IV ; Start 01/29/18 at 09: 00; Status UNV Metronidazole 100 ml @ 100 mls/hr Q12HR IV Last administered on 02/02/18at 21: 00; Start 01/28/18 at 10:00; Stop 02/03/18 at 10:49; Status DC Cefepime HCl (Maxipime) 1 gm Q24H IVP Last administered on 02/03/18at 10:54; Start 01/28/18 at 10:00; Stop 02/04/18 at 12:02; Status DC Lidocaine HCl (Xylocaine-Mpf 2% Vial) 2 ml STK-MED ONCE .ROUTE ; Start 01/28/18 at 11:41; Stop 01/28/18 at 11:42; Status DC Sodium Chloride 1,000 ml @ 1,000 mls/hr Q1H PRN IV hypotension; Start 01/28/18 at 12:09; Stop 01/28/18 at 18:08; Status DC Info (PHARMACY MONITORING -- do not chart) 1 each PRN DAILY PRN MC SEE COMMENTS ; Start 01/28/18 at 12:15; Status UNV Info (PHARMACY MONITORING -- do not chart) 1 each PRN DAILY PRN MC SEE COMMENTS ; Start 01/28/18 at 12:15; Stop 01/31/18 at 09:10; Status DC Lidocaine HCl (Xylocaine-Mpf 2% Vial) 2 ml 1X ONCE INJ ; Start 01/28/18 at 12: 15; Stop 01/28/18 at 12:21; Status DC Ticagrelor (Brilinta) 90 mg BID PO Last administered on 02/04/18at 22:00; Start 01/28/18 at 21:00 Diphenhydramine HCl (Benadryl) 25 mg PRN Q6HRS PRN PO ITCHING; Start 01/28/18 at 14:15 Aspirin (Ecotrin) 81 mg DAILYWBKFT PO Last administered on 02/03/18at 10:50; Start 01/29/18 at 08:00 Insulin Human Lispro (HumaLOG) 0-5 UNITS TIDWMEALS SQ Last administered on 03/14at 08:47; Start 01/28/18 at 17:00 Dextrose (Dextrose 50%-Water Syringe) 12.5 gm PRN Q15MIN PRN IV SEE COMMENTS Last administered on 02/05/18at 08:50; Start 01/28/18 at 14:45 Hydralazine HCl (Apresoline) 10 mg PRN TID PRN PO hypertension; Start 01/28/18 at 14:45 Oxycodone/ Acetaminophen (Percocet 10/325) 1 tab PRN Q4HRS PRN PO pain SEVERE Last administered on 02/03/18at 10:48; Start 01/29/18 at 07:45 Promethazine HCl (Phenergan Supp) 12.5 mg 1X ONCE CO ; Start 01/29/18 at 12:15 ; Stop 01/29/18 at 12:36; Status DC Promethazine HCl (Phenergan Im) 12.5 mg 1X ONCE IM ; Start 01/29/18 at 12:45; Stop 01/29/18 at 12:46; Status DC Lidocaine/ Epinephrine (LIDOCAINE 1%-EPI 1:100,000 Multi-Dose) 20 ml STK-MED ONCE .ROUTE ; Start 01/29/18 at 12:45; Stop 01/29/18 at 12:47; Status DC Heparin Sodium (Porcine) (Hep Lock Adult) 500 unit STK-MED ONCE IV ; Start 01/29 at 12:45; Stop 01/29/18 at 12:47; Status DC Morphine Sulfate (Morphine Sulfate) 10 mg STK-MED ONCE .ROUTE ; Start 01/29/18 at 13:23; Stop 01/29/18 at 13:25; Status DC Midazolam HCl (Versed) 2 mg STK-MED ONCE .ROUTE ; Start 01/29/18 at 13:23; Stop 01/29/18 at 13:25; Status DC Morphine Sulfate (Morphine Sulfate) 1 mg PRN Q10MIN PRN IV SEVERE PAIN Last administered on 02/01/18at 15:46; Start 02/01/18 at 07:00; Stop 02/02/18 at 06:59 ; Status DC Ringer's Solution 1,000 ml @ 30 mls/hr Q24H IV ; Start 02/01/18 at 07:00; Stop 02/01/18 at 18:59; Status DC Lidocaine HCl (Xylocaine-Mpf 1% 2ml Vial) 2 ml PRN 1X PRN ID PRIOR TO IV START ; Start 02/01/18 at 07:00; Stop 02/02/18 at 06:59; Status DC Hydromorphone HCl (Dilaudid) 0.5 mg PRN Q10MIN PRN IV SEV PAIN, Second choice Last administered on 02/01/18at 16:08; Start 02/01/18 at 07:00; Stop 02/02/18 at 06:59; Status DC Prochlorperazine Edisylate (Compazine) 5 mg PACU PRN PRN IV NAUSEA, MRX1; Start 02/01/18 at 07:00; Stop 02/02/18 at 06:59; Status DC Lidocaine/ Epinephrine (LIDOCAINE 1%-EPI 1:100,000 Multi-Dose) 8 ml 1X ONCE IJ Last administered on 01/29/18at 14:01; Start 01/29/18 at 14:00; Stop 01/29/18 at 14:17; Status DC Heparin Sodium (Porcine) (Hep Lock Adult) 500 unit 1X ONCE IV Last administered on 01/29/18at 14:04; Start 01/29/18 at 14:00; Stop 01/29/18 at 14:17 ; Status DC Morphine Sulfate (Morphine Sulfate) 5 mg 1X ONCE IV Last administered on at 14:01; Start 01/29/18 at 14:00; Stop 01/29/18 at 14:17; Status DC Ondansetron HCl (Zofran) 4 mg PRN Q6HRS PRN IV NAUSEA/VOMITING 1ST CHOICE Last administered on 02/02/18at 09:51; Start 01/29/18 at 14:45 Vancomycin HCl 500 mg/Sodium Chloride 100 ml @ 100 mls/hr 1X ONCE IV Last administered on 01/29/18at 21:04; Start 01/29/18 at 18:00; Stop 01/29/18 at 18:59 ; Status DC Sodium Chloride 1,000 ml @ 1,000 mls/hr Q1H PRN IV hypotension; Start 01/30/18 at 13:09; Stop 01/30/18 at 19:08; Status DC Sodium Chloride (Normal Saline Flush) 10 ml 1X PRN PRN IV AP catheter pack; Start 01/30/18 at 13:15; Stop 01/31/18 at 13:14; Status DC Sodium Chloride (Normal Saline Flush) 10 ml 1X PRN PRN IV [employer] SAL[employer]ERSON catheter pack; Start 01/30/18 at 13:15; Stop 01/31/18 at 13:14; Status DC Sodium Chloride 1,000 ml @ 400 mls/hr Q2H30M PRN IV PATENCY; Start 01/30/18 at 13:09; Stop 01/31/18 at 01:08; Status DC Info (PHARMACY MONITORING -- do not chart) 1 each PRN DAILY PRN MC SEE COMMENTS ; Start 01/30/18 at 13:15; Stop 01/30/18 at 13:17; Status DC Info (PHARMACY MONITORING -- do not chart) 1 each PRN DAILY PRN MC SEE COMMENTS ; Start 01/30/18 at 13:15; Stop 02/04/18 at 07:27; Status DC Lidocaine HCl (Lidocaine 1% 50ml Vial) 50 ml 1X ONCE INJ ; Start 01/30/18 at 15 :45; Stop 01/30/18 at 15:46; Status DC Vancomycin HCl 500 mg/Sodium Chloride 100 ml @ 100 mls/hr ONCE ONCE IV Last administered on 01/30/18at 20:49; Start 01/30/18 at 18:00; Stop 01/30/18 at 18:59 ; Status DC Cefazolin Sodium 1 gm/Sodium Chloride 500 ml @ 500 mls/hr 1X ONCE IRR ; Start 02/01/18 at 06:00; Stop 02/01/18 at 06:59; Status DC Lidocaine HCl (Xylocaine-Mpf 2% Vial) 2 ml STK-MED ONCE .ROUTE ; Start 01/28/18 at 12:00; Stop 02/01/18 at 08:30; Status DC Darbepoetin Mauricio (Aranesp) 60 mcg [id number] SQ Last administered on 02/01/18at 21 :38; Start 02/01/18 at 21:00 Cellulose (Surgicel Fibrillar 1x2) 1 each STK-MED ONCE .ROUTE ; Start 02/01/18 at 12:05; Stop 02/01/18 at 13:06; Status DC Lidocaine HCl (Xylocaine 1% Pf 30ml Vial) 30 ml 1X ONCE INJ ; Start 02/01/18 at 13:15; Stop 02/01/18 at 13:18; Status DC Sodium Chloride 1,000 ml @ 75 mls/hr [id number] IV Last administered on at 00:15; Start 02/01/18 at 13:45; Stop 02/02/18 at 16:43; Status DC Morphine Sulfate (Morphine Sulfate) 10 mg STK-MED ONCE .ROUTE ; Start 02/01/18 at 14:24; Stop 02/01/18 at 14:25; Status DC Midazolam HCl (Versed) 2 mg STK-MED ONCE .ROUTE ; Start 02/01/18 at 14:24; Stop 02/01/18 at 14:25; Status DC Midazolam HCl (Versed) 2 mg STK-MED ONCE .ROUTE ; Start 02/01/18 at 14:25; Stop 02/01/18 at 14:26; Status DC Propofol 20 ml @ As Directed STK-MED ONCE IV ; Start 02/01/18 at 14:25; Stop at 14:26; Status DC Dexamethasone Sodium Phosphate (Decadron) 20 mg STK-MED ONCE .ROUTE ; Start 02/01/18 at 14:25; Stop 02/01/18 at 14:26; Status DC Ondansetron HCl (Zofran) 4 mg STK-MED ONCE .ROUTE ; Start 02/01/18 at 14:25; Stop 02/01/18 at 14:26; Status DC Bacitracin (Bacitracin) 50,000 unit STK-MED ONCE IRR Last administered on at 14:55; Start 02/01/18 at 13:32; Stop 02/01/18 at 14:32; Status DC Vancomycin HCl 500 mg/Sodium Chloride 100 ml @ 100 mls/hr QTUTHSA IV Last administered on 02/02/18at 16:15; Start 02/02/18 at 16:00; Stop 02/04/18 at 12: 02; Status DC Sodium Chloride 1,000 ml @ 1,000 mls/hr Q1H PRN IV hypotension; Start 02/02/18 at 09:39; Stop 02/02/18 at 15:38; Status DC Albumin Human 200 ml @ 200 mls/hr 1X PRN PRN IV Hypotension; Start 02/02/18 at 09:45; Stop 02/02/18 at 15:44; Status DC Sodium Chloride 1,000 ml @ 400 mls/hr Q2H30M PRN IV PATENCY; Start 02/02/18 at 09:39; Stop 02/02/18 at 21:38; Status DC Info (PHARMACY MONITORING -- do not chart) 1 each PRN DAILY PRN MC SEE COMMENTS ; Start 02/02/18 at 09:45; Stop 02/04/18 at 07:28; Status DC Info (PHARMACY MONITORING -- do not chart) 1 each PRN DAILY PRN MC SEE COMMENTS ; Start 02/02/18 at 09:45; Status UNV Prochlorperazine Edisylate (Compazine) 10 mg PRN Q6HRS PRN IV NAUSEA/VOMITING 2ND CHOICE Last administered on 02/02/18at 23:23; Start 02/02/18 at 11:30 Vancomycin HCl (Vanco Per Pharmacy) 1 each PRN DAILY PRN MC SEE COMMENTS Last administered on 02/02/18at 13:57; Start 02/02/18 at 14:00; Stop 02/04/18 at 12: 02; Status DC Famotidine (Pepcid Vial) 20 mg DAILY IVP Last administered on 02/04/18at 14:25 ; Start 02/03/18 at 10:00 Alteplase, Recombinant (Cathflo) 2 mg 1X ONCE INT CAT Last administered on 03/14at 02:56; Start 02/04/18 at 03:00; Stop 02/04/18 at 03:01; Status DC Sodium Chloride 1,000 ml @ 1,000 mls/hr Q1H PRN IV hypotension; Start at 07:15; Stop 02/04/18 at 13:14; Status DC Albumin Human 200 ml @ 200 mls/hr 1X PRN PRN IV Hypotension Last administered on 02/04/18at 11:26; Start 02/04/18 at 07:15; Stop 02/04/18 at 13:14; Status DC Acetaminophen (Tylenol) 500 mg 1X PRN PRN PO MILD PAIN / TEMP; Start 02/04/18 at 07:15; Stop 02/05/18 at 07:14; Status DC Diphenhydramine HCl (Benadryl) 25 mg 1X PRN PRN IV ITCHING; Start 02/04/18 at 07:15; Stop 02/05/18 at 07:14; Status DC Diphenhydramine HCl (Benadryl) 25 mg 1X PRN PRN IV ITCHING; Start 02/04/18 at 07:15; Stop 02/05/18 at 07:14; Status DC Sodium Chloride 1,000 ml @ 400 mls/hr Q2H30M PRN IV PATENCY; Start 02/04/18 at 07:15; Stop 02/04/18 at 19:14; Status DC Info (PHARMACY MONITORING -- do not chart) 1 each PRN DAILY PRN MC SEE COMMENTS ; Start 02/04/18 at 07:15 Lidocaine HCl (Xylocaine-Mpf 2% Vial) 2 ml STK-MED ONCE .ROUTE ; Start at 09:43; Stop 02/04/18 at 09:44; Status DC Docusate Sodium (Colace) 100 mg PRN DAILY PRN PO CONSTIPATION; Start 02/04/18 at 10:30 Ceftriaxone Sodium 2 gm/ Dextrose 100 ml @ 200 mls/hr Q24H IV Last administered on 02/04/18at 14:24; Start 02/04/18 at 13:00 Morphine Sulfate (Morphine Sulfate) 1 mg PRN Q10MIN PRN IV SEVERE PAIN; Start 02/05/18 at 07:00; Stop 02/06/18 at 06:59 Ringer's Solution 1,000 ml @ 30 mls/hr Q24H IV ; Start 02/05/18 at 07:00; Stop 02/05/18 at 18:59 Lidocaine HCl (Xylocaine-Mpf 1% 2ml Vial) 2 ml PRN 1X PRN ID IV START; Start 02/05/18 at 07:00; Stop 02/06/18 at 06:59 Hydromorphone HCl (Dilaudid) 0.5 mg PRN Q10MIN PRN IV SEV PAIN, Second choice; Start 02/05/18 at 07:00; Stop 02/06/18 at 06:59 Prochlorperazine Edisylate (Compazine) 5 mg PACU PRN PRN IV NAUSEA, MRX1; Start 02/05/18 at 07:00; Stop 02/06/18 at 06:59 Lidocaine HCl (Xylocaine-Mpf 2% Vial) 2 ml STK-MED ONCE .ROUTE ; Start at 10:00; Stop 02/05/18 at 08:19; Status DC Sodium Chloride 1,000 ml @ 75 mls/hr [id number] IV ; Start 02/05/18 at 10:30 Active Scripts Active Percocet 10-325 Mg Tablet (Oxycodone/Acetaminophen) 1 Each Tablet 1 Tab PO Q4HRS Brilinta (Ticagrelor) 90 Mg Tablet 90 Mg PO BID 30 Days Morphine Sulfate Er (Morphine Sulfate) 15 Mg Tablet.er 15 Mg PO BID Reported Brilinta (Ticagrelor) 90 Mg Tablet 90 Mg PO BID Lidocaine 1 Each Adh..patch 1 Each TP PRN DAILY PRN Calcitriol 0.25 Mcg Capsule 1 Cap PO DAILY Tegretol (Carbamazepine) 200 Mg Tablet 1 Tab PO BID Tramadol Hcl 50 Mg Tablet 50 Mg PO Q4HRS PRN Lantus Solostar (Insulin Glargine,Hum.rec.anlog) 100 Unit/1 Ml Insuln.pen 22 Unit SQ QHS Diflucan (Fluconazole) 100 Mg Tablet 100 Mg PO PRN Carvedilol 3.125 Mg Tablet 12.5 Mg PO BID Erythromycin (Erythromycin Base) 250 Mg Capsule.dr 250 Mg PO BID Cardizem Cd (Diltiazem Hcl) 180 Mg Cap.er.24h 120 Mg PO DAILY Amiodarone Hcl 200 Mg Tablet 1 Tab PO DAILY Nystatin 15 Gm Powder 1 Susanna TP PRN BID PRN Proventil Hfa Inhaler (Albuterol Sulfate) 6.7 Gm Hfa.aer.ad 2 Puff IH BID PRN Zofran (Ondansetron Hcl) 4 Mg Tablet 4 Mg PO Q6-8HRS PRN Nephro-Shabbir Tablet (Folic Acid/Vitamin B Comp W-C) 0.8 Mg Tablet 1 Tab PO DAILY Tricor (Fenofibrate Nanocrystallized) 145 Mg Tablet 1 Tab PO HS Lipitor (Atorvastatin Calcium) 80 Mg Tablet 80 Mg PO HS Niacin 500 Mg Tablet 500 Mg PO HS Novolog (Insulin Aspart) 100 Unit/1 Ml Cartridge 0 SQ TIDAC sliding scale Aspirin 325 Mg Tablet 325 Mg PO DAILY Furosemide 80 Mg Tablet 80 Mg PO BID Docusate Sodium 100 Mg Capsule 1 Cap PO PRN PRN Nitrostat (Nitroglycerin) 0.4 Mg Tab.subl 0.4 Mg SL PRN Q5MIN PRN Take as needed for chest pain Vitals/I & O Vital Sign - Last 24 Hours 02/04/18 02/04/18 02/04/18 02/04/18 14:20 14:21 14:24 14:25 Pulse 85 85 85 B/P (MAP) 141/58 141/58 141/58 O2 Delivery Room Air 02/04/18 02/04/18 02/04/18 02/04/18 15:00 18:12 18:12 19:00 Temp 97.5 97.9 97.5 97.9 Pulse 102 85 88 Resp 14 18 B/P (MAP) 142/56 (84) 141/58 139/82 (101) Pulse Ox 99 95 O2 Delivery Room Air Room Air Room Air 02/04/18 02/04/18 02/04/18 02/05/18 20:00 22:01 23:00 02:16 Temp 97.8 97.8 Pulse 91 Resp 17 B/P (MAP) 149/56 (87) Pulse Ox 98 O2 Delivery Room Air Room Air Room Air Room Air 02/05/18 02/05/18 02/05/18 02/05/18 02:54 03:00 03:44 07:00 Temp 98.3 98.0 98.3 98.0 Pulse 68 81 Resp 18 18 B/P (MAP) 128/60 (82) 120/48 (72) Pulse Ox 96 100 O2 Delivery Room Air Room Air Room Air 2L PRN 02/05/18 02/05/18 02/05/18 02/05/18 08:00 10:07 10:13 10:16 Temp 100.0 100.0 100.0 100.0 Pulse 90 90 Resp 20 20 B/P (MAP) 119/51 Pulse Ox 98 O2 Delivery Room Air Room Air O2 Flow Rate 2.0 Intake and Output 02/04/18 02/04/18 02/05/18 15:00 23:00 07:00 Intake Total 360 ml 360 ml Output Total 50 ml 0 ml Balance -50 ml 360 ml 360 ml TANVIR GARCIA APRN Feb 05, 2018 11:22
--- NOTE | 2018-02-05 11:48 | PDOC ---
Infectious Disease Note Subjective: Subjective Pt awaiting EGD and vac change C/O nausea Denies F/C/SOB/V /D T MAX 100 ROS: ROS Negative except for above. Vital Signs: Vital Signs Vital Signs Date Time Temp Pulse Resp B/P (MAP) Pulse Ox O2 Delivery O2 Flow Rate FiO2 02/05/18 10:52 98.2 80 18 116/55 98.2 02/05/18 10:16 98 02/05/18 10:13 Room Air 2.0 Physical Exam: PHYSICAL EXAM GENERAL: Propped up in bed, alert, in NAD HEENT: Oral cavity clear NECK: Supple LUNGS: Clear. HEART: S1, S2 regular. ABDOMEN: Soft, NT EXTREMITIES: Left BKA. RLE edema with wound vac in place . NEUROLOGIC: Alert and responds appropriately Tunnelled [facility] (01/29) Medications: Inpatient Meds: Current Medications Medications (Trade) Dose Ordered Sig/Martin Start Time Stop Time Status Last Admin Dose Admin Acetaminophen (Tylenol) 500 mg 1X PRN PRN 02/04/18 07:15 02/05/18 07:14 DC Albumin Human 200 ml @ 200 mls/hr 1X PRN PRN 02/04/18 07:15 02/04/18 13:14 DC 02/04/18 11:26 200 MLS/HR Albuterol Sulfate (Ventolin Neb Soln) 2.5 mg PRN BID PRN 01/27/18 12:30 01/27/18 21:59 2.5 MG Alteplase, Recombinant (Cathflo) 2 mg 1X ONCE 02/04/18 03:00 02/04/18 03:01 DC 02/04/18 02:56 2 MG Amiodarone HCl (Cordarone) 200 mg DAILY 01/27/18 12:30 02/04/18 14:24 200 MG Aspirin (Anthony Aspirin) 325 mg DAILY 01/27/18 12:30 01/28/18 14:26 DC 01/28/18 09:13 325 MG Aspirin (Ecotrin) 81 mg DAILYWBKFT 01/29/18 08:00 02/03/18 10:50 81 MG Atorvastatin Calcium (Lipitor) 80 mg QHS 01/27/18 21:00 02/04/18 22:00 80 MG Bacitracin (Bacitracin) 50,000 unit STK-MED ONCE 02/01/18 13:32 02/01/18 14:32 DC 02/01/18 14:55 50,000 UNIT Bacitracin 35160 unit/Sodium Chloride 3,000 ml @ 0 mls/hr 1X ONCE 01/27/18 13:15 01/27/18 13:16 Cancel Calcitriol (Rocaltrol) 0.25 mcg DAILY 01/27/18 12:30 02/04/18 14:20 0.25 MCG Carbamazepine (TEGretol) 200 mg BID 01/27/18 12:30 02/04/18 22:00 200 MG Carvedilol (Coreg) 12.5 mg BIDWMEALS 01/27/18 12:30 02/04/18 18:12 12.5 MG Cefazolin Sodium 1 gm/Sodium Chloride 500 ml @ 500 mls/hr 1X ONCE 02/01/18 06:00 02/01/18 06:59 DC Cefepime HCl (Maxipime) 1 gm Q24H 01/28/18 10:00 02/04/18 12:02 DC 02/03/18 10:54 1 GM Cefepime HCl 1 gm/ Dextrose 50 ml @ 100 mls/hr DAILY 01/29/18 09:00 UNV Ceftriaxone Sodium 2 gm/ Dextrose 100 ml @ 200 mls/hr Q24H 02/04/18 13:00 02/04/18 14:24 200 MLS/HR Cellulose (Surgicel Fibrillar 1x2) 1 each STK-MED ONCE 02/01/18 12:05 02/01/18 13:06 DC Clopidogrel Bisulfate (Plavix) 75 mg DAILYWBKFT 01/28/18 08:00 01/28/18 14:28 DC 01/28/18 09:13 75 MG Darbepoetin Mauricio (Aranesp) 60 mcg WEEKLYHS 02/01/18 21:00 02/01/18 21:38 60 MCG Dexamethasone Sodium Phosphate (Decadron) 20 mg STK-MED ONCE 02/01/18 14:25 02/01/18 14:26 DC Dextrose (Dextrose 50%-Water Syringe) 12.5 gm PRN Q15MIN PRN 01/28/18 14:45 02/05/18 08:50 12.5 GM Diltiazem HCl (Cardizem 24hr Cd) 120 mg DAILY 01/27/18 12:30 02/04/18 14:20 120 MG Diphenhydramine HCl (Benadryl) 25 mg 1X PRN PRN 02/04/18 07:15 02/05/18 07:14 DC Docusate Sodium (Colace) 100 mg PRN DAILY PRN 02/04/18 10:30 Erythromycin (E-Mycin) 250 mg BID 01/27/18 21:00 02/04/18 22:00 250 MG Famotidine (Pepcid Vial) 20 mg DAILY 02/03/18 10:00 02/04/18 14:25 20 MG Fenofibrate (Lofibra) 134 mg QHS 01/27/18 21:00 02/04/18 22:00 134 MG Fentanyl Citrate (Fentanyl 2ml Vial) 50 mcg PRN Q5MIN PRN 01/27/18 10:45 01/27/18 18:00 DC Furosemide (Lasix) 80 mg [id number] 01/27/18 12:30 02/04/18 14:21 80 MG Gentamicin Sulfate 235 mg/ Dextrose 105.875 ml @ 105.875 mls/hr 1X ONCE 01/27/18 16:00 01/27/18 16:59 DC 01/27/18 19:56 105.875 MLS/HR Heparin Sodium (Porcine) (Hep Lock Adult) 500 unit 1X ONCE 01/29/18 14:00 01/29/18 14:17 DC 01/29/18 14:04 500 UNIT Hydralazine HCl (Apresoline) 10 mg PRN TID PRN 01/28/18 14:45 Hydromorphone HCl (Dilaudid) 0.5 mg PRN Q10MIN PRN 02/05/18 07:00 02/06/18 06:59 Influenza Virus Vaccine (Afluria Trivalent [id number] Syringe) 0.5 ml ONCE ONCE 01/27/18 09:00 01/27/18 09:01 DC 01/27/18 09:00 0.5 ML Info (PHARMACY MONITORING -- do not chart) 1 each PRN DAILY PRN 02/04/18 07:15 Insulin Glargine (Lantus) 22 units QHS 01/27/18 21:00 02/04/18 22:05 22 UNITS Insulin Human Lispro (HumaLOG) 0-5 UNITS TIDWMEALS 01/28/18 17:00 02/04/18 08:47 5 UNITS Lactobacillus Rhamnosus (Culturelle) 1 cap BID 01/27/18 21:00 02/04/18 22:00 1 CAP Lidocaine (Lidoderm) 1 patch PRN DAILY PRN 01/27/18 09:00 Lidocaine HCl (Lidocaine 1% 50ml Vial) 50 ml 1X ONCE 01/30/18 15:45 01/30/18 15:46 DC Lidocaine HCl (Xylocaine 1% Pf 30ml Vial) 30 ml 1X ONCE 02/01/18 13:15 02/01/18 13:18 DC Lidocaine HCl (Xylocaine-Mpf 1% 2ml Vial) 2 ml PRN 1X PRN 02/05/18 07:00 02/06/18 06:59 Lidocaine HCl (Xylocaine-Mpf 2% Vial) 2 ml STK-MED ONCE 02/04/18 10:00 02/05/18 08:19 DC Lidocaine/ Epinephrine (LIDOCAINE 1%-EPI 1:100,000 Multi-Dose) 8 ml 1X ONCE 01/29/18 14:00 01/29/18 14:17 DC 01/29/18 14:01 8 ML Metronidazole 100 ml @ 100 mls/hr Q12HR 01/28/18 10:00 02/03/18 10:49 DC 02/02/18 21:00 100 MLS/HR Midazolam HCl (Versed) 2 mg STK-MED ONCE 02/01/18 14:25 02/01/18 14:26 DC Miscellaneous (Lidoderm Patch Removal) 1 ea QHS 01/27/18 21:00 02/04/18 21:00 1 EA Morphine Sulfate (Morphine Sulfate) 1 mg PRN Q10MIN PRN 02/05/18 07:00 02/06/18 06:59 Morphine Sulfate (Ms Contin) 15 mg BID 01/27/18 12:30 02/04/18 22:01 15 MG Niacin (Slo-Niacin) 500 mg QHS 01/27/18 21:00 02/04/18 22:00 500 MG Nitroglycerin (Nitrostat) 0.4 mg PRN Q5MIN PRN 01/27/18 12:00 Non-Formulary Medication (Albuterol Sulfate (Proventil Hfa Inhaler)) 2 puff BID PRN 01/27/18 12:00 UNV Non-Formulary Medication (Fluconazole (Diflucan)) 100 mg PRN 01/27/18 12:00 UNV Nystatin (Nystop) 1 erich PRN BID PRN 01/27/18 12:00 Ondansetron HCl (Zofran Odt) 4 mg PRN Q6HRS PRN 01/27/18 12:15 Ondansetron HCl (Zofran) 4 mg STK-MED ONCE 02/01/18 14:25 02/01/18 14:26 DC Oxycodone/ Acetaminophen (Percocet 10) 1 tab PRN Q4HRS PRN 01/29/18 07:45 02/03/18 10:48 1 TAB Pharmacy Consult (C.diff Med Screen By Rx) 1 each 1X ONCE 01/27/18 01:00 01/27/18 01:01 Cancel Prochlorperazine Edisylate (Compazine) 5 mg PACU PRN PRN 02/05/18 07:00 02/06/18 06:59 Promethazine HCl (Phenergan Im) 12.5 mg 1X ONCE 01/29/18 12:45 01/29/18 12:46 DC Promethazine HCl (Phenergan Supp) 12.5 mg 1X ONCE 01/29/18 12:15 01/29/18 12:36 DC Propofol 20 ml @ As Directed STK-MED ONCE 02/01/18 14:25 02/01/18 14:26 DC Ringer's Solution 1,000 ml @ 30 mls/hr Q24H 02/05/18 07:00 02/05/18 18:59 Sevoflurane (Ultane) 30 ml STK-MED ONCE 01/27/18 13:11 01/27/18 13:12 DC Sodium Chloride 1,000 ml @ 75 mls/hr [id number] 02/05/18 10:30 Sodium Chloride (Normal Saline Flush) 10 ml 1X PRN PRN 01/30/18 13:15 01/31/18 13:14 DC Ticagrelor (Brilinta) 90 mg BID 01/28/18 21:00 02/04/18 22:00 90 MG Tramadol HCl (Ultram) 50 mg PRN Q4HRS PRN 01/27/18 12:00 Vancomycin HCl (Vanco Per Pharmacy) 1 each PRN DAILY PRN 02/02/18 14:00 02/04/18 12:02 DC 02/02/18 13:57 1 EACH Vancomycin HCl (Vancomycin Random Level) 1 each 1X ONCE 01/28/18 05:00 01/28/18 05:01 DC 01/28/18 05:00 1 EACH Vancomycin HCl 1.75 gm/Sodium Chloride 500 ml @ 250 mls/hr 1X ONCE 01/26/18 23:00 01/27/18 00:59 DC 01/26/18 23:53 250 MLS/HR Vancomycin HCl 500 mg/Sodium Chloride 100 ml @ 100 mls/hr QTUTHSA 02/02/18 16:00 02/04/18 12:02 DC 02/02/18 16:15 100 MLS/HR Vitamin B Complex/ Vitamin C (Melly-Shabbir) 1 tab DAILY 01/27/18 12:30 02/04/18 14:20 1 TAB Labs: Lab Laboratory Tests Test 02/04/18 14:06 02/04/18 17:06 02/04/18 21:20 02/05/18 04:35 Glucose (Fingerstick) 146 mg/dL (70-99) 131 mg/dL (70-99) 113 mg/dL (70-99) White Blood Count 17.1 x10^3/uL (4.0-11.0) Red Blood Count 1.99 x10^6/uL (3.50-5.40) Hemoglobin 6.4 g/dL (12.0-15.5) Hematocrit 19.0 % (36.0-47.0) Mean Corpuscular Volume 94 fL (79-100) Mean Corpuscular Hemoglobin 32 pg (25-35) Mean Corpuscular Hemoglobin Concent 34 g/dL (31-37) Red Cell Distribution Width 16.7 % (11.5-14.5) Platelet Count 287 x10^3/uL (140-400) Neutrophils (%) (Auto) 84 % (31-73) Lymphocytes (%) (Auto) 8 % (24-48) Monocytes (%) (Auto) 6 % (0-9) Eosinophils (%) (Auto) 1 % (0-3) Basophils (%) (Auto) 1 % (0-3) Neutrophils # (Auto) 14.3 x10^3uL (1.8-7.7) Lymphocytes # (Auto) 1.4 x10^3/uL (1.0-4.8) Monocytes # (Auto) 1.0 x10^3/uL (0.0-1.1) Eosinophils # (Auto) 0.2 x10^3/uL (0.0-0.7) Basophils # (Auto) 0.1 x10^3/uL (0.0-0.2) Sodium Level 140 mmol/L (136-145) Potassium Level 3.9 mmol/L (3.5-5.1) Chloride Level 102 mmol/L (98-107) Carbon Dioxide Level 30 mmol/L (21-32) Anion Gap 8 (6-14) Blood Urea Nitrogen 26 mg/dL (7-20) Creatinine 3.1 mg/dL (0.6-1.0) Estimated GFR (Cockcroft-Gault) 15.8 BUN/Creatinine Ratio 8 (6-20) Glucose Level 79 mg/dL (70-99) Calcium Level 8.5 mg/dL (8.5-10.1) Total Bilirubin 0.4 mg/dL (0.2-1.0) Aspartate Amino Transf (AST/SGOT) 16 U/L (15-37) Alanine Aminotransferase (ALT/SGPT) 11 U/L (14-59) Alkaline Phosphatase 89 U/L (46-116) Total Protein 5.2 g/dL (6.4-8.2) Albumin 2.4 g/dL (3.4-5.0) Albumin/Globulin Ratio 0.9 (1.0-1.7) Test 02/05/18 07:49 Glucose (Fingerstick) 63 mg/dL (70-99) Micro Micro 01/26/18 Blood Culture - Preliminary, Resulted NO GROWTH AFTER 4 DAYS 01/27 ANAEROBIC RES 1 Preliminary No anaerobes recovered in 24 hours. AEROBIC RES 1 Final Klebsiella pneumoniae MICS are expressed in micrograms per mL Antibiotic RSLT#1 RSLT#2 Amoxicillin/Clavulanic Acid S<=2 Ampicillin R>=32 Cefepime S<=0.12 Ceftriaxone S<=0.25 Cefuroxime S =4 Ciprofloxacin S =1 Ertapenem S<=0.12 Gentamicin S<=1 Imipenem S<=0.25 Levofloxacin S =1 Meropenem S<=0.25 Piperacillin/Tazobactam S<=4 Tetracycline S<=1 Tobramycin S<=1 Trimethoprim/Sulfa S<=20 Objective: Assessment: Right leg surgery site infection s/p excisional debridement; muscle flap & wound VAC placement on 01/27 C/S + . Klebsiella (R amp) and G/S GPCs ,latter ID still pending S/P repeat I and D on 02/01 vascular planning for wound vac change later this week and early next week Leucocytosis ? reactive from gi bleed PAD s/p leg bypass on 01/06 ESRD Multiple antibiotic allergies Amiodarone therapy h/o VRE, MRSA, c. diff Nausea and vomiting awaiting egd Plan: Plan of Care DC ceftriaxone and restart Cefepime and vanco off Flagyl 02/03 s/p gent x 1 on 01/27 Probiotics f/u cultures egd today Pain management per primary Supportive care GRACIELA LÓPEZ MD Feb 05, 2018 11:48
--- NOTE | 2018-02-05 11:54 | PDOC ---
Renal-Progress Notes Subjective Notes Notes NO NEW COMPLAINTS History of Present Illness Hx of present illness STABLE Vitals Vitals Vital Signs Date Time Temp Pulse Resp B/P (MAP) Pulse Ox O2 Delivery O2 Flow Rate FiO2 02/05/18 11:44 98.1 78 18 113/52 98.1 02/05/18 10:16 98 02/05/18 10:13 Room Air 2.0 Weight Weight [ ] I.O. Intake and Output Intake and Output 02/05/18 07:00 Intake Total 720 ml Output Total 50 ml Balance 670 ml Intake Oral 720 ml Output Urine Total 50 ml # Voids 1 Labs Labs Laboratory Tests Test 02/04/18 14:06 02/04/18 17:06 02/04/18 21:20 02/05/18 04:35 Glucose (Fingerstick) 146 mg/dL (70-99) 131 mg/dL (70-99) 113 mg/dL (70-99) White Blood Count 17.1 x10^3/uL (4.0-11.0) Red Blood Count 1.99 x10^6/uL (3.50-5.40) Hemoglobin 6.4 g/dL (12.0-15.5) Hematocrit 19.0 % (36.0-47.0) Mean Corpuscular Volume 94 fL (79-100) Mean Corpuscular Hemoglobin 32 pg (25-35) Mean Corpuscular Hemoglobin Concent 34 g/dL (31-37) Red Cell Distribution Width 16.7 % (11.5-14.5) Platelet Count 287 x10^3/uL (140-400) Neutrophils (%) (Auto) 84 % (31-73) Lymphocytes (%) (Auto) 8 % (24-48) Monocytes (%) (Auto) 6 % (0-9) Eosinophils (%) (Auto) 1 % (0-3) Basophils (%) (Auto) 1 % (0-3) Neutrophils # (Auto) 14.3 x10^3uL (1.8-7.7) Lymphocytes # (Auto) 1.4 x10^3/uL (1.0-4.8) Monocytes # (Auto) 1.0 x10^3/uL (0.0-1.1) Eosinophils # (Auto) 0.2 x10^3/uL (0.0-0.7) Basophils # (Auto) 0.1 x10^3/uL (0.0-0.2) Sodium Level 140 mmol/L (136-145) Potassium Level 3.9 mmol/L (3.5-5.1) Chloride Level 102 mmol/L (98-107) Carbon Dioxide Level 30 mmol/L (21-32) Anion Gap 8 (6-14) Blood Urea Nitrogen 26 mg/dL (7-20) Creatinine 3.1 mg/dL (0.6-1.0) Estimated GFR (Cockcroft-Gault) 15.8 BUN/Creatinine Ratio 8 (6-20) Glucose Level 79 mg/dL (70-99) Calcium Level 8.5 mg/dL (8.5-10.1) Total Bilirubin 0.4 mg/dL (0.2-1.0) Aspartate Amino Transf (AST/SGOT) 16 U/L (15-37) Alanine Aminotransferase (ALT/SGPT) 11 U/L (14-59) Alkaline Phosphatase 89 U/L (46-116) Total Protein 5.2 g/dL (6.4-8.2) Albumin 2.4 g/dL (3.4-5.0) Albumin/Globulin Ratio 0.9 (1.0-1.7) Test 02/05/18 07:49 Glucose (Fingerstick) 63 mg/dL (70-99) Micro Micro Microbiology 01/26/18 Blood Culture - Final, Complete NO GROWTH AFTER 5 DAYS 01/27/18 Anaerobic/Aerobic Culture - Final, Complete 01/27/18 Anaerobic Culture Result 1 (ROSALIND) - Final, Complete 01/27/18 Aerobic Culture - Final, Complete 01/27/18 Aerobic Culture Result 1 (ROSALIND) - Final, Complete 01/27/18 Antimicrobic Susceptibility - Final, Complete 01/27/18 Gram Stain - Final, Complete 01/27/18 Gram Stain Result 1 (ROSALIND) - Final, Complete 01/27/18 Gram Stain Result 2 (ROSALIND) - Final, Complete Review of Systems Constitutional: yes: weakness, alert, oriented Ears/Nose/Throat: Yes: no symptom reported Eyes: Yes: no symptom reported Pulmonary: Yes no symptom reported Cardiovascular: Yes no symptom reported Gastrointestional: Yes: no symptom reported Genitourinary: Yes: no symptom reported Musculoskeletal: Yes: leg pain Skin: Yes color change Psychiatric/Neurological: Yes: no symptom reported Physical Exam General Appearance: no apparent distress Respiratory: bilateral CTA Heart: S1S2 Abdomen: soft, bowel sounds present Genitourinary: bladder flat Extremities: pulses present Musculoskeletal: low back pain (and neck pain), Osteoarthritis Assessment Assessment IMP ESRD-ON PD BUT HAS FUNCTIONING RIGHT ARM AVF ANEMIA DM II HTN PAD R LE CELLULITIS PLAN HD TOMORROW BACK TO PD WHEN HOME ANTIBIOTICS WOUND CARE WILL FOLLOW CHARLY ZAVALA MD Feb 05, 2018 11:54
--- NOTE | 2018-02-05 12:01 | PDOC ---
PROGRESS NOTES Assessment Problems Medical Problems: (1) Chronic renal failure Status: Acute Retinopathy. Cataracts. No bilateral occipital stroke. [place] Plan Outpatient ophthalmology evaluation when medically stable. I fully discussed with the patient and her son. Subjective No change in vision Objective Vital Signs Date Time Temp Pulse Resp B/P (MAP) Pulse Ox O2 Delivery O2 Flow Rate FiO2 02/05/18 11:44 98.1 78 18 113/52 98.1 02/05/18 10:16 98 02/05/18 10:13 Room Air 2.0 Intake and Output 02/05/18 07:00 Intake Total 720 ml Output Total 50 ml Balance 670 ml Intake Oral 720 ml Output Urine Total 50 ml # Voids 1 PHYSICAL EXAM Alert. Oriented to time, place and person. PERRL. EOMI. CN: visual acuity 20/800 with a near card, bilaterally, otherwise no focal findings. Muscle tone: normal. Muscle strength: 4/5 DTR: 0+ Plantar reflex: no foot on left, right plantar response silent Gait: not examined in bed. Sensory exam: stocking loss in right leg No cerebellar signs elicited. Review of Relevant I have reviewed the following items bert (where applicable) has been applied. Labs Laboratory Tests Test 02/03/18 17:51 02/03/18 20:18 02/04/18 03:35 02/04/18 07:45 Glucose (Fingerstick) 155 mg/dL (70-99) 164 mg/dL (70-99) 343 mg/dL (70-99) White Blood Count 16.3 x10^3/uL (4.0-11.0) Red Blood Count 2.34 x10^6/uL (3.50-5.40) Hemoglobin 7.4 g/dL (12.0-15.5) Hematocrit 22.5 % (36.0-47.0) Mean Corpuscular Volume 96 fL (79-100) Mean Corpuscular Hemoglobin 32 pg (25-35) Mean Corpuscular Hemoglobin Concent 33 g/dL (31-37) Red Cell Distribution Width 17.2 % (11.5-14.5) Platelet Count 347 x10^3/uL (140-400) Neutrophils (%) (Auto) 82 % (31-73) Lymphocytes (%) (Auto) 11 % (24-48) Monocytes (%) (Auto) 6 % (0-9) Eosinophils (%) (Auto) 1 % (0-3) Basophils (%) (Auto) 1 % (0-3) Neutrophils # (Auto) 13.4 x10^3uL (1.8-7.7) Lymphocytes # (Auto) 1.7 x10^3/uL (1.0-4.8) Monocytes # (Auto) 1.0 x10^3/uL (0.0-1.1) Eosinophils # (Auto) 0.1 x10^3/uL (0.0-0.7) Basophils # (Auto) 0.1 x10^3/uL (0.0-0.2) Sodium Level 139 mmol/L (136-145) Potassium Level 4.8 mmol/L (3.5-5.1) Chloride Level 101 mmol/L (98-107) Carbon Dioxide Level 26 mmol/L (21-32) Anion Gap 12 (6-14) Blood Urea Nitrogen 56 mg/dL (7-20) Creatinine 4.8 mg/dL (0.6-1.0) Estimated GFR (Cockcroft-Gault) 9.5 BUN/Creatinine Ratio 12 (6-20) Glucose Level 328 mg/dL (70-99) Calcium Level 7.9 mg/dL (8.5-10.1) Total Bilirubin 0.3 mg/dL (0.2-1.0) Aspartate Amino Transf (AST/SGOT) 12 U/L (15-37) Alanine Aminotransferase (ALT/SGPT) 10 U/L (14-59) Alkaline Phosphatase 119 U/L (46-116) Total Protein 4.9 g/dL (6.4-8.2) Albumin 1.7 g/dL (3.4-5.0) Albumin/Globulin Ratio 0.5 (1.0-1.7) Test 02/04/18 14:06 02/04/18 17:06 02/04/18 21:20 02/05/18 04:35 Glucose (Fingerstick) 146 mg/dL (70-99) 131 mg/dL (70-99) 113 mg/dL (70-99) White Blood Count 17.1 x10^3/uL (4.0-11.0) Red Blood Count 1.99 x10^6/uL (3.50-5.40) Hemoglobin 6.4 g/dL (12.0-15.5) Hematocrit 19.0 % (36.0-47.0) Mean Corpuscular Volume 94 fL (79-100) Mean Corpuscular Hemoglobin 32 pg (25-35) Mean Corpuscular Hemoglobin Concent 34 g/dL (31-37) Red Cell Distribution Width 16.7 % (11.5-14.5) Platelet Count 287 x10^3/uL (140-400) Neutrophils (%) (Auto) 84 % (31-73) Lymphocytes (%) (Auto) 8 % (24-48) Monocytes (%) (Auto) 6 % (0-9) Eosinophils (%) (Auto) 1 % (0-3) Basophils (%) (Auto) 1 % (0-3) Neutrophils # (Auto) 14.3 x10^3uL (1.8-7.7) Lymphocytes # (Auto) 1.4 x10^3/uL (1.0-4.8) Monocytes # (Auto) 1.0 x10^3/uL (0.0-1.1) Eosinophils # (Auto) 0.2 x10^3/uL (0.0-0.7) Basophils # (Auto) 0.1 x10^3/uL (0.0-0.2) Sodium Level 140 mmol/L (136-145) Potassium Level 3.9 mmol/L (3.5-5.1) Chloride Level 102 mmol/L (98-107) Carbon Dioxide Level 30 mmol/L (21-32) Anion Gap 8 (6-14) Blood Urea Nitrogen 26 mg/dL (7-20) Creatinine 3.1 mg/dL (0.6-1.0) Estimated GFR (Cockcroft-Gault) 15.8 BUN/Creatinine Ratio 8 (6-20) Glucose Level 79 mg/dL (70-99) Calcium Level 8.5 mg/dL (8.5-10.1) Total Bilirubin 0.4 mg/dL (0.2-1.0) Aspartate Amino Transf (AST/SGOT) 16 U/L (15-37) Alanine Aminotransferase (ALT/SGPT) 11 U/L (14-59) Alkaline Phosphatase 89 U/L (46-116) Total Protein 5.2 g/dL (6.4-8.2) Albumin 2.4 g/dL (3.4-5.0) Albumin/Globulin Ratio 0.9 (1.0-1.7) Test 02/05/18 07:49 Glucose (Fingerstick) 63 mg/dL (70-99) Laboratory Tests Test 02/04/18 14:06 02/04/18 17:06 02/04/18 21:20 02/05/18 04:35 Glucose (Fingerstick) 146 mg/dL (70-99) 131 mg/dL (70-99) 113 mg/dL (70-99) White Blood Count 17.1 x10^3/uL (4.0-11.0) Red Blood Count 1.99 x10^6/uL (3.50-5.40) Hemoglobin 6.4 g/dL (12.0-15.5) Hematocrit 19.0 % (36.0-47.0) Mean Corpuscular Volume 94 fL (79-100) Mean Corpuscular Hemoglobin 32 pg (25-35) Mean Corpuscular Hemoglobin Concent 34 g/dL (31-37) Red Cell Distribution Width 16.7 % (11.5-14.5) Platelet Count 287 x10^3/uL (140-400) Neutrophils (%) (Auto) 84 % (31-73) Lymphocytes (%) (Auto) 8 % (24-48) Monocytes (%) (Auto) 6 % (0-9) Eosinophils (%) (Auto) 1 % (0-3) Basophils (%) (Auto) 1 % (0-3) Neutrophils # (Auto) 14.3 x10^3uL (1.8-7.7) Lymphocytes # (Auto) 1.4 x10^3/uL (1.0-4.8) Monocytes # (Auto) 1.0 x10^3/uL (0.0-1.1) Eosinophils # (Auto) 0.2 x10^3/uL (0.0-0.7) Basophils # (Auto) 0.1 x10^3/uL (0.0-0.2) Sodium Level 140 mmol/L (136-145) Potassium Level 3.9 mmol/L (3.5-5.1) Chloride Level 102 mmol/L (98-107) Carbon Dioxide Level 30 mmol/L (21-32) Anion Gap 8 (6-14) Blood Urea Nitrogen 26 mg/dL (7-20) Creatinine 3.1 mg/dL (0.6-1.0) Estimated GFR (Cockcroft-Gault) 15.8 BUN/Creatinine Ratio 8 (6-20) Glucose Level 79 mg/dL (70-99) Calcium Level 8.5 mg/dL (8.5-10.1) Total Bilirubin 0.4 mg/dL (0.2-1.0) Aspartate Amino Transf (AST/SGOT) 16 U/L (15-37) Alanine Aminotransferase (ALT/SGPT) 11 U/L (14-59) Alkaline Phosphatase 89 U/L (46-116) Total Protein 5.2 g/dL (6.4-8.2) Albumin 2.4 g/dL (3.4-5.0) Albumin/Globulin Ratio 0.9 (1.0-1.7) Test 02/05/18 07:49 Glucose (Fingerstick) 63 mg/dL (70-99) Microbiology 01/26/18 Blood Culture - Final, Complete NO GROWTH AFTER 5 DAYS 01/27/18 Anaerobic/Aerobic Culture - Final, Complete 01/27/18 Anaerobic Culture Result 1 (ROSALIND) - Final, Complete 01/27/18 Aerobic Culture - Final, Complete 01/27/18 Aerobic Culture Result 1 (ROSALIND) - Final, Complete 01/27/18 Antimicrobic Susceptibility - Final, Complete 01/27/18 Gram Stain - Final, Complete 01/27/18 Gram Stain Result 1 (ROSALIND) - Final, Complete 01/27/18 Gram Stain Result 2 (ROSALIND) - Final, Complete Medications Current Medications Hydromorphone HCl (Dilaudid) 2 mg 1X ONCE IV Last administered on 01/26/18at 22 :39; Start 01/26/18 at 22:00; Stop 01/26/18 at 22:01; Status DC Vancomycin HCl (Vanco Per Pharmacy) 1 each PRN DAILY PRN MC SEE COMMENTS Last administered on 01/31/18at 17:20; Start 01/26/18 at 22:45; Stop 02/01/18 at 11:41 ; Status DC Vancomycin HCl 1.75 gm/Sodium Chloride 500 ml @ 250 mls/hr 1X ONCE IV Last administered on 01/26/18at 23:53; Start 01/26/18 at 23:00; Stop 01/27/18 at 00:59 ; Status DC Ondansetron HCl (Zofran) 4 mg PRN Q8HRS PRN IV NAUSEA/VOMITING 1ST CHOICE; Start 01/26/18 at 23:15; Stop 01/27/18 at 23:14; Status DC Sodium Chloride 1,000 ml @ 75 mls/hr [id number] IV Last administered on at 00:39; Start 01/26/18 at 23:30; Stop 01/27/18 at 23:29; Status DC Pharmacy Consult (C.diff Med Screen By Rx) 1 each 1X ONCE MC ; Start 01/27/18 at 01:00; Stop 01/27/18 at 01:01; Status Cancel Influenza Virus Vaccine (Afluria Trivalent [id number] Syringe) 0.5 ml ONCE ONCE VAX IM Last administered on 01/27/18at 09:00; Start 01/27/18 at 09:00; Stop 01/27/18 at 09:01; Status DC Vancomycin HCl (Vancomycin Random Level) 1 each 1X ONCE MC Last administered on 01/28/18at 05:00; Start 01/28/18 at 05:00; Stop 01/28/18 at 05:01; Status DC Hydromorphone HCl (Dilaudid) 1 mg PRN Q3HRS PRN IV SEVERE PAIN Last administered on 02/05/18at 02:54; Start 01/27/18 at 03:30 Ondansetron HCl (Zofran) 4 mg PRN Q6HRS PRN IV NAUSEA/VOMITING; Start 01/27/18 at 10:45; Stop 01/27/18 at 18:00; Status DC Fentanyl Citrate (Fentanyl 2ml Vial) 25 mcg PRN Q5MIN PRN IV MILD PAIN; Start 01/27/18 at 10:45; Stop 01/27/18 at 18:00; Status DC Fentanyl Citrate (Fentanyl 2ml Vial) 50 mcg PRN Q5MIN PRN IV MODERATE TO SEVERE PAIN; Start 01/27/18 at 10:45; Stop 01/27/18 at 18:00; Status DC Morphine Sulfate (Morphine Sulfate) 1 mg PRN Q10MIN PRN IV SEVERE PAIN Last administered on 01/27/18 16:28; Start 01/27/18 at 10:45; Stop 01/27/18 at 18:00 ; Status DC Ringer's Solution 1,000 ml @ 30 mls/hr Q24H IV Last administered on 01/27/18at 10:35; Start 01/27/18 at 10:35; Stop 01/27/18 at 19:36; Status DC Lidocaine HCl (Xylocaine-Mpf 1% 2ml Vial) 2 ml 1X PRN PRN ID IV START; Start 01/27/18 at 10:45; Stop 01/27/18 at 18:00; Status DC Hydromorphone HCl (Dilaudid) 0.5 mg PRN Q10MIN PRN IV SEV PAIN, Second choice Last administered on 01/27/18at 15:59; Start 01/27/18 at 10:45; Stop 01/27/18 at 18:00; Status DC Prochlorperazine Edisylate (Compazine) 5 mg PACU PRN PRN IV NAUSEA, MRX1; Start 01/27/18 at 10:45; Stop 01/27/18 at 18:00; Status DC Amiodarone HCl (Cordarone) 200 mg DAILY PO Last administered on 02/04/18 14: 24; Start 01/27/18 at 12:30 Aspirin (Anthony Aspirin) 325 mg DAILY PO Last administered on 01/28/18 09:13; Start 01/27/18 at 12:30; Stop 01/28/18 at 14:26; Status DC Carbamazepine (TEGretol) 200 mg BID PO Last administered on 02/04/18 22:00; Start 01/27/18 at 12:30 Carvedilol (Coreg) 12.5 mg BIDWMEALS PO Last administered on 02/04/18 18:12; Start 01/27/18 at 12:30 Vitamin B Complex/ Vitamin C (Melly-Shabbir) 1 tab DAILY PO Last administered on 14:20; Start 01/27/18 at 12:30 Furosemide (Lasix) 80 mg [id number] PO Last administered on 02/04/18 14:21; Start 01/27/18 at 12:30 Insulin Glargine (Lantus) 22 units QHS SQ Last administered on 02/04/18at 22:05 ; Start 01/27/18 at 21:00 Morphine Sulfate (Ms Contin) 15 mg BID PO Last administered on 02/04/18at 22:01 ; Start 01/27/18 at 12:30 Nitroglycerin (Nitrostat) 0.4 mg PRN Q5MIN PRN SL CHEST PAIN; Start 01/27/18 at 12:00 Nystatin (Nystop) 1 susanna PRN BID PRN TP SKIN BREAKDOWN; Start 01/27/18 at 12:00 Tramadol HCl (Ultram) 50 mg PRN Q4HRS PRN PO HEADACHE; Start 01/27/18 at 12:00 Non-Formulary Medication (Albuterol Sulfate (Proventil Hfa Inhaler)) 2 puff BID PRN IH FOR ASTHMA; Start 01/27/18 at 12:00; Status UNV Atorvastatin Calcium (Lipitor) 80 mg QHS PO Last administered on 02/04/18 22: 00; Start 01/27/18 at 21:00 Calcitriol (Rocaltrol) 0.25 mcg DAILY PO Last administered on 02/04/18at 14:20 ; Start 01/27/18 at 12:30 Diltiazem HCl (Cardizem 24hr Cd) 120 mg DAILY PO Last administered on 14:20; Start 01/27/18 at 12:30 Erythromycin (E-Mycin) 250 mg BID PO Last administered on 02/04/18at 22:00; Start 01/27/18 at 21:00 Fenofibrate (Lofibra) 134 mg QHS PO Last administered on 02/04/18at 22:00; Start 01/27/18 at 21:00 Non-Formulary Medication (Fluconazole (Diflucan)) 100 mg PRN PO ; Start at 12:00; Status UNV Lidocaine (Lidoderm) 1 patch PRN DAILY PRN TD PAIN; Start 01/27/18 at 09:00 Niacin (Slo-Niacin) 500 mg QHS PO Last administered on 02/04/18at 22:00; Start 01/27/18 at 21:00 Ondansetron HCl (Zofran Odt) 4 mg PRN Q6HRS PRN PO NAUSEA/VOMITING; Start 01/27 at 12:15 Miscellaneous (Lidoderm Patch Removal) 1 ea QHS MC Last administered on at 21:00; Start 01/27/18 at 21:00 Albuterol Sulfate (Ventolin Neb Soln) 2.5 mg PRN BID PRN NEB SHORTNESS OF BREATH Last administered on 01/27/18at 21:59; Start 01/27/18 at 12:30 Lidocaine HCl (Lidocaine 1% 50ml Vial) 50 ml 1X ONCE INJ Last administered on 01/27/18at 14:06; Start 01/27/18 at 12:45; Stop 01/27/18 at 12:46; Status DC Hydromorphone HCl (Dilaudid) 2 mg STK-MED ONCE .ROUTE ; Start 01/27/18 at 12:36 ; Stop 01/27/18 at 12:38; Status DC Propofol 20 ml @ As Directed STK-MED ONCE IV ; Start 01/27/18 at 12:38; Stop at 12:39; Status DC Bacitracin 63070 unit/Sodium Chloride 3,000 ml @ 0 mls/hr 1X ONCE IR ; Start 01/27/18 at 13:15; Stop 01/27/18 at 13:16; Status Cancel Dexamethasone Sodium Phosphate (Decadron) 20 mg STK-MED ONCE .ROUTE ; Start 01/27/18 at 13:11; Stop 01/27/18 at 13:12; Status DC Ondansetron HCl (Zofran) 4 mg STK-MED ONCE .ROUTE ; Start 01/27/18 at 13:11; Stop 01/27/18 at 13:12; Status DC Sevoflurane (Ultane) 30 ml STK-MED ONCE IH ; Start 01/27/18 at 13:11; Stop 01/27 at 13:12; Status DC Bacitracin (Bacitracin) 50,000 unit STK-MED ONCE IRR Last administered on at 13:58; Start 01/27/18 at 12:14; Stop 01/27/18 at 13:16; Status DC Clopidogrel Bisulfate (Plavix) 75 mg DAILYWBKFT PO Last administered on at 09:13; Start 01/28/18 at 08:00; Stop 01/28/18 at 14:28; Status DC Hydromorphone HCl (Dilaudid) 2 mg STK-MED ONCE .ROUTE ; Start 01/27/18 at 15:38 ; Stop 01/27/18 at 15:40; Status DC Gentamicin Sulfate 235 mg/ Dextrose 105.875 ml @ 105.875 mls/hr 1X ONCE IV Last administered on 01/27/18at 19:56; Start 01/27/18 at 16:00; Stop 01/27/18 at 16:59; Status DC Lactobacillus Rhamnosus (Culturelle) 1 cap BID PO Last administered on at 22:00; Start 01/27/18 at 21:00 Cefepime HCl 1 gm/ Dextrose 50 ml @ 100 mls/hr DAILY IV ; Start 01/29/18 at 09: 00; Status UNV Metronidazole 100 ml @ 100 mls/hr Q12HR IV Last administered on 02/02/18at 21: 00; Start 01/28/18 at 10:00; Stop 02/03/18 at 10:49; Status DC Cefepime HCl (Maxipime) 1 gm Q24H IVP Last administered on 02/03/18at 10:54; Start 01/28/18 at 10:00; Stop 02/04/18 at 12:02; Status DC Lidocaine HCl (Xylocaine-Mpf 2% Vial) 2 ml STK-MED ONCE .ROUTE ; Start 01/28/18 at 11:41; Stop 01/28/18 at 11:42; Status DC Sodium Chloride 1,000 ml @ 1,000 mls/hr Q1H PRN IV hypotension; Start 01/28/18 at 12:09; Stop 01/28/18 at 18:08; Status DC Info (PHARMACY MONITORING -- do not chart) 1 each PRN DAILY PRN MC SEE COMMENTS ; Start 01/28/18 at 12:15; Status UNV Info (PHARMACY MONITORING -- do not chart) 1 each PRN DAILY PRN MC SEE COMMENTS ; Start 01/28/18 at 12:15; Stop 01/31/18 at 09:10; Status DC Lidocaine HCl (Xylocaine-Mpf 2% Vial) 2 ml 1X ONCE INJ ; Start 01/28/18 at 12: 15; Stop 01/28/18 at 12:21; Status DC Ticagrelor (Brilinta) 90 mg BID PO Last administered on 02/04/18at 22:00; Start 01/28/18 at 21:00 Diphenhydramine HCl (Benadryl) 25 mg PRN Q6HRS PRN PO ITCHING; Start 01/28/18 at 14:15 Aspirin (Ecotrin) 81 mg DAILYWBKFT PO Last administered on 02/03/18at 10:50; Start 01/29/18 at 08:00 Insulin Human Lispro (HumaLOG) 0-5 UNITS TIDWMEALS SQ Last administered on 03/14at 08:47; Start 01/28/18 at 17:00 Dextrose (Dextrose 50%-Water Syringe) 12.5 gm PRN Q15MIN PRN IV SEE COMMENTS Last administered on 02/05/18at 08:50; Start 01/28/18 at 14:45 Hydralazine HCl (Apresoline) 10 mg PRN TID PRN PO hypertension; Start 01/28/18 at 14:45 Oxycodone/ Acetaminophen (Percocet 10/325) 1 tab PRN Q4HRS PRN PO pain SEVERE Last administered on 02/03/18at 10:48; Start 01/29/18 at 07:45 Promethazine HCl (Phenergan Supp) 12.5 mg 1X ONCE MI ; Start 01/29/18 at 12:15 ; Stop 01/29/18 at 12:36; Status DC Promethazine HCl (Phenergan Im) 12.5 mg 1X ONCE IM ; Start 01/29/18 at 12:45; Stop 01/29/18 at 12:46; Status DC Lidocaine/ Epinephrine (LIDOCAINE 1%-EPI 1:100,000 Multi-Dose) 20 ml STK-MED ONCE .ROUTE ; Start 01/29/18 at 12:45; Stop 01/29/18 at 12:47; Status DC Heparin Sodium (Porcine) (Hep Lock Adult) 500 unit STK-MED ONCE IV ; Start 01/29 at 12:45; Stop 01/29/18 at 12:47; Status DC Morphine Sulfate (Morphine Sulfate) 10 mg STK-MED ONCE .ROUTE ; Start 01/29/18 at 13:23; Stop 01/29/18 at 13:25; Status DC Midazolam HCl (Versed) 2 mg STK-MED ONCE .ROUTE ; Start 01/29/18 at 13:23; Stop 01/29/18 at 13:25; Status DC Morphine Sulfate (Morphine Sulfate) 1 mg PRN Q10MIN PRN IV SEVERE PAIN Last administered on 02/01/18at 15:46; Start 02/01/18 at 07:00; Stop 02/02/18 at 06:59 ; Status DC Ringer's Solution 1,000 ml @ 30 mls/hr Q24H IV ; Start 02/01/18 at 07:00; Stop 02/01/18 at 18:59; Status DC Lidocaine HCl (Xylocaine-Mpf 1% 2ml Vial) 2 ml PRN 1X PRN ID PRIOR TO IV START ; Start 02/01/18 at 07:00; Stop 02/02/18 at 06:59; Status DC Hydromorphone HCl (Dilaudid) 0.5 mg PRN Q10MIN PRN IV SEV PAIN, Second choice Last administered on 02/01/18at 16:08; Start 02/01/18 at 07:00; Stop 02/02/18 at 06:59; Status DC Prochlorperazine Edisylate (Compazine) 5 mg PACU PRN PRN IV NAUSEA, MRX1; Start 02/01/18 at 07:00; Stop 02/02/18 at 06:59; Status DC Lidocaine/ Epinephrine (LIDOCAINE 1%-EPI 1:100,000 Multi-Dose) 8 ml 1X ONCE IJ Last administered on 01/29/18at 14:01; Start 01/29/18 at 14:00; Stop 01/29/18 at 14:17; Status DC Heparin Sodium (Porcine) (Hep Lock Adult) 500 unit 1X ONCE IV Last administered on 01/29/18at 14:04; Start 01/29/18 at 14:00; Stop 01/29/18 at 14:17 ; Status DC Morphine Sulfate (Morphine Sulfate) 5 mg 1X ONCE IV Last administered on at 14:01; Start 01/29/18 at 14:00; Stop 01/29/18 at 14:17; Status DC Ondansetron HCl (Zofran) 4 mg PRN Q6HRS PRN IV NAUSEA/VOMITING 1ST CHOICE Last administered on 02/02/18at 09:51; Start 01/29/18 at 14:45 Vancomycin HCl 500 mg/Sodium Chloride 100 ml @ 100 mls/hr 1X ONCE IV Last administered on 01/29/18at 21:04; Start 01/29/18 at 18:00; Stop 01/29/18 at 18:59 ; Status DC Sodium Chloride 1,000 ml @ 1,000 mls/hr Q1H PRN IV hypotension; Start 01/30/18 at 13:09; Stop 01/30/18 at 19:08; Status DC Sodium Chloride (Normal Saline Flush) 10 ml 1X PRN PRN IV AP catheter pack; Start 01/30/18 at 13:15; Stop 01/31/18 at 13:14; Status DC Sodium Chloride (Normal Saline Flush) 10 ml 1X PRN PRN IV HOLLOW TILE PARTITION ERECTOR catheter pack; Start 01/30/18 at 13:15; Stop 01/31/18 at 13:14; Status DC Sodium Chloride 1,000 ml @ 400 mls/hr Q2H30M PRN IV PATENCY; Start 01/30/18 at 13:09; Stop 01/31/18 at 01:08; Status DC Info (PHARMACY MONITORING -- do not chart) 1 each PRN DAILY PRN MC SEE COMMENTS ; Start 01/30/18 at 13:15; Stop 01/30/18 at 13:17; Status DC Info (PHARMACY MONITORING -- do not chart) 1 each PRN DAILY PRN MC SEE COMMENTS ; Start 01/30/18 at 13:15; Stop 02/04/18 at 07:27; Status DC Lidocaine HCl (Lidocaine 1% 50ml Vial) 50 ml 1X ONCE INJ ; Start 01/30/18 at 15 :45; Stop 01/30/18 at 15:46; Status DC Vancomycin HCl 500 mg/Sodium Chloride 100 ml @ 100 mls/hr ONCE ONCE IV Last administered on 01/30/18at 20:49; Start 01/30/18 at 18:00; Stop 01/30/18 at 18:59 ; Status DC Cefazolin Sodium 1 gm/Sodium Chloride 500 ml @ 500 mls/hr 1X ONCE IRR ; Start 02/01/18 at 06:00; Stop 02/01/18 at 06:59; Status DC Lidocaine HCl (Xylocaine-Mpf 2% Vial) 2 ml STK-MED ONCE .ROUTE ; Start 01/28/18 at 12:00; Stop 02/01/18 at 08:30; Status DC Darbepoetin Mauricio (Aranesp) 60 mcg [id number] SQ Last administered on 02/01/18at 21 :38; Start 02/01/18 at 21:00 Cellulose (Surgicel Fibrillar 1x2) 1 each STK-MED ONCE .ROUTE ; Start 02/01/18 at 12:05; Stop 02/01/18 at 13:06; Status DC Lidocaine HCl (Xylocaine 1% Pf 30ml Vial) 30 ml 1X ONCE INJ ; Start 02/01/18 at 13:15; Stop 02/01/18 at 13:18; Status DC Sodium Chloride 1,000 ml @ 75 mls/hr [id number] IV Last administered on at 00:15; Start 02/01/18 at 13:45; Stop 02/02/18 at 16:43; Status DC Morphine Sulfate (Morphine Sulfate) 10 mg STK-MED ONCE .ROUTE ; Start 02/01/18 at 14:24; Stop 02/01/18 at 14:25; Status DC Midazolam HCl (Versed) 2 mg STK-MED ONCE .ROUTE ; Start 02/01/18 at 14:24; Stop 02/01/18 at 14:25; Status DC Midazolam HCl (Versed) 2 mg STK-MED ONCE .ROUTE ; Start 02/01/18 at 14:25; Stop 02/01/18 at 14:26; Status DC Propofol 20 ml @ As Directed STK-MED ONCE IV ; Start 02/01/18 at 14:25; Stop at 14:26; Status DC Dexamethasone Sodium Phosphate (Decadron) 20 mg STK-MED ONCE .ROUTE ; Start 02/01/18 at 14:25; Stop 02/01/18 at 14:26; Status DC Ondansetron HCl (Zofran) 4 mg STK-MED ONCE .ROUTE ; Start 02/01/18 at 14:25; Stop 02/01/18 at 14:26; Status DC Bacitracin (Bacitracin) 50,000 unit STK-MED ONCE IRR Last administered on at 14:55; Start 02/01/18 at 13:32; Stop 02/01/18 at 14:32; Status DC Vancomycin HCl 500 mg/Sodium Chloride 100 ml @ 100 mls/hr QTUTHSA IV Last administered on 02/02/18at 16:15; Start 02/02/18 at 16:00; Stop 02/04/18 at 12: 02; Status DC Sodium Chloride 1,000 ml @ 1,000 mls/hr Q1H PRN IV hypotension; Start 02/02/18 at 09:39; Stop 02/02/18 at 15:38; Status DC Albumin Human 200 ml @ 200 mls/hr 1X PRN PRN IV Hypotension; Start 02/02/18 at 09:45; Stop 02/02/18 at 15:44; Status DC Sodium Chloride 1,000 ml @ 400 mls/hr Q2H30M PRN IV PATENCY; Start 02/02/18 at 09:39; Stop 02/02/18 at 21:38; Status DC Info (PHARMACY MONITORING -- do not chart) 1 each PRN DAILY PRN MC SEE COMMENTS ; Start 02/02/18 at 09:45; Stop 02/04/18 at 07:28; Status DC Info (PHARMACY MONITORING -- do not chart) 1 each PRN DAILY PRN MC SEE COMMENTS ; Start 02/02/18 at 09:45; Status UNV Prochlorperazine Edisylate (Compazine) 10 mg PRN Q6HRS PRN IV NAUSEA/VOMITING 2ND CHOICE Last administered on 02/02/18at 23:23; Start 02/02/18 at 11:30 Vancomycin HCl (Vanco Per Pharmacy) 1 each PRN DAILY PRN MC SEE COMMENTS Last administered on 02/02/18at 13:57; Start 02/02/18 at 14:00; Stop 02/04/18 at 12: 02; Status DC Famotidine (Pepcid Vial) 20 mg DAILY IVP Last administered on 02/04/18at 14:25 ; Start 02/03/18 at 10:00 Alteplase, Recombinant (Cathflo) 2 mg 1X ONCE INT CAT Last administered on 03/14at 02:56; Start 02/04/18 at 03:00; Stop 02/04/18 at 03:01; Status DC Sodium Chloride 1,000 ml @ 1,000 mls/hr Q1H PRN IV hypotension; Start at 07:15; Stop 02/04/18 at 13:14; Status DC Albumin Human 200 ml @ 200 mls/hr 1X PRN PRN IV Hypotension Last administered on 02/04/18at 11:26; Start 02/04/18 at 07:15; Stop 02/04/18 at 13:14; Status DC Acetaminophen (Tylenol) 500 mg 1X PRN PRN PO MILD PAIN / TEMP; Start 02/04/18 at 07:15; Stop 02/05/18 at 07:14; Status DC Diphenhydramine HCl (Benadryl) 25 mg 1X PRN PRN IV ITCHING; Start 02/04/18 at 07:15; Stop 02/05/18 at 07:14; Status DC Diphenhydramine HCl (Benadryl) 25 mg 1X PRN PRN IV ITCHING; Start 02/04/18 at 07:15; Stop 02/05/18 at 07:14; Status DC Sodium Chloride 1,000 ml @ 400 mls/hr Q2H30M PRN IV PATENCY; Start 02/04/18 at 07:15; Stop 02/04/18 at 19:14; Status DC Info (PHARMACY MONITORING -- do not chart) 1 each PRN DAILY PRN MC SEE COMMENTS ; Start 02/04/18 at 07:15 Lidocaine HCl (Xylocaine-Mpf 2% Vial) 2 ml STK-MED ONCE .ROUTE ; Start at 09:43; Stop 02/04/18 at 09:44; Status DC Docusate Sodium (Colace) 100 mg PRN DAILY PRN PO CONSTIPATION; Start 02/04/18 at 10:30 Ceftriaxone Sodium 2 gm/ Dextrose 100 ml @ 200 mls/hr Q24H IV Last administered on 02/04/18at 14:24; Start 02/04/18 at 13:00; Stop 02/05/18 at 11 :49; Status DC Morphine Sulfate (Morphine Sulfate) 1 mg PRN Q10MIN PRN IV SEVERE PAIN; Start 02/05/18 at 07:00; Stop 02/06/18 at 06:59 Ringer's Solution 1,000 ml @ 30 mls/hr Q24H IV ; Start 02/05/18 at 07:00; Stop 02/05/18 at 18:59 Lidocaine HCl (Xylocaine-Mpf 1% 2ml Vial) 2 ml PRN 1X PRN ID IV START; Start 02/05/18 at 07:00; Stop 02/06/18 at 06:59 Hydromorphone HCl (Dilaudid) 0.5 mg PRN Q10MIN PRN IV SEV PAIN, Second choice; Start 02/05/18 at 07:00; Stop 02/06/18 at 06:59 Prochlorperazine Edisylate (Compazine) 5 mg PACU PRN PRN IV NAUSEA, MRX1; Start 02/05/18 at 07:00; Stop 02/06/18 at 06:59 Lidocaine HCl (Xylocaine-Mpf 2% Vial) 2 ml STK-MED ONCE .ROUTE ; Start at 10:00; Stop 02/05/18 at 08:19; Status DC Sodium Chloride 1,000 ml @ 75 mls/hr [id number] IV ; Start 02/05/18 at 10:30 Cefepime HCl 1 gm/ Dextrose 50 ml @ 100 mls/hr DAILY IV ; Start 02/06/18 at 09 :00; Status UNV Vancomycin HCl (Vanco Per Pharmacy) 1 each PRN DAILY PRN MC SEE COMMENTS; Start 02/05/18 at 12:00 Cefepime HCl (Maxipime) 1 gm Q24H IVP ; Start 02/05/18 at 12:00 Active Scripts Active Percocet 10-325 Mg Tablet (Oxycodone/Acetaminophen) 1 Each Tablet 1 Tab PO Q4HRS Brilinta (Ticagrelor) 90 Mg Tablet 90 Mg PO BID 30 Days Morphine Sulfate Er (Morphine Sulfate) 15 Mg Tablet.er 15 Mg PO BID Reported Brilinta (Ticagrelor) 90 Mg Tablet 90 Mg PO BID Lidocaine 1 Each Adh..patch 1 Each TP PRN DAILY PRN Calcitriol 0.25 Mcg Capsule 1 Cap PO DAILY Tegretol (Carbamazepine) 200 Mg Tablet 1 Tab PO BID Tramadol Hcl 50 Mg Tablet 50 Mg PO Q4HRS PRN Lantus Solostar (Insulin Glargine,Hum.rec.anlog) 100 Unit/1 Ml Insuln.pen 22 Unit SQ QHS Diflucan (Fluconazole) 100 Mg Tablet 100 Mg PO PRN Carvedilol 3.125 Mg Tablet 12.5 Mg PO BID Erythromycin (Erythromycin Base) 250 Mg Capsule.dr 250 Mg PO BID Cardizem Cd (Diltiazem Hcl) 180 Mg Cap.er.24h 120 Mg PO DAILY Amiodarone Hcl 200 Mg Tablet 1 Tab PO DAILY Nystatin 15 Gm Powder 1 Susanna TP PRN BID PRN Proventil Hfa Inhaler (Albuterol Sulfate) 6.7 Gm Hfa.aer.ad 2 Puff IH BID PRN Zofran (Ondansetron Hcl) 4 Mg Tablet 4 Mg PO Q6-8HRS PRN Nephro-Shabbir Tablet (Folic Acid/Vitamin B Comp W-C) 0.8 Mg Tablet 1 Tab PO DAILY Tricor (Fenofibrate Nanocrystallized) 145 Mg Tablet 1 Tab PO HS Lipitor (Atorvastatin Calcium) 80 Mg Tablet 80 Mg PO HS Niacin 500 Mg Tablet 500 Mg PO HS Novolog (Insulin Aspart) 100 Unit/1 Ml Cartridge 0 SQ TIDAC sliding scale Aspirin 325 Mg Tablet 325 Mg PO DAILY Furosemide 80 Mg Tablet 80 Mg PO BID Docusate Sodium 100 Mg Capsule 1 Cap PO PRN PRN Nitrostat (Nitroglycerin) 0.4 Mg Tab.subl 0.4 Mg SL PRN Q5MIN PRN Take as needed for chest pain Vitals/I & O Vital Sign - Last 24 Hours 02/04/18 02/04/18 02/04/18 02/04/18 14:20 14:21 14:24 14:25 Pulse 85 85 85 B/P (MAP) 141/58 141/58 141/58 O2 Delivery Room Air 02/04/18 02/04/18 02/04/18 02/04/18 15:00 18:12 18:12 19:00 Temp 97.5 97.9 97.5 97.9 Pulse 102 85 88 Resp 14 18 B/P (MAP) 142/56 (84) 141/58 139/82 (101) Pulse Ox 99 95 O2 Delivery Room Air Room Air Room Air 02/04/18 02/04/18 02/04/18 02/05/18 20:00 22:01 23:00 02:16 Temp 97.8 97.8 Pulse 91 Resp 17 B/P (MAP) 149/56 (87) Pulse Ox 98 O2 Delivery Room Air Room Air Room Air Room Air 02/05/18 02/05/18 02/05/18 02/05/18 02:54 03:00 03:44 07:00 Temp 98.3 98.0 98.3 98.0 Pulse 68 81 Resp 18 18 B/P (MAP) 128/60 (82) 120/48 (72) Pulse Ox 96 100 O2 Delivery Room Air Room Air Room Air 2L PRN 02/05/18 02/05/18 02/05/18 02/05/18 08:00 10:07 10:13 10:16 Temp 100.0 100.0 100.0 100.0 Pulse 90 90 Resp 20 20 B/P (MAP) 119/51 Pulse Ox 98 O2 Delivery Room Air Room Air O2 Flow Rate 2.0 02/05/18 02/05/18 10:52 11:44 Temp 98.2 98.1 98.2 98.1 Pulse 80 78 Resp 18 18 B/P (MAP) 116/55 113/52 Intake and Output 02/04/18 02/04/18 02/05/18 15:00 23:00 07:00 Intake Total 360 ml 360 ml Output Total 50 ml 0 ml Balance -50 ml 360 ml 360 ml ADAM HAGEN MD Feb 05, 2018 12:01
[2018-02-05] MEDS ORDERED: LIDOCAINE 2% PF 2ML VIAL. ONE (12:08)
[2018-02-05] MEDS ORDERED: PROPOFOL 20 ML IV ONE (12:08)
--- NOTE | 2018-02-05 12:23 | PDOC4 ---
Operative Note Operative Note EGD Meds propofol per anesthesia Pre-op dx anemia/coffee ground emesis post-op dx non-erosive gastritis Plan resume renal diet transfusional support CECE GRAHAM MD Feb 05, 2018 12:23
[2018-02-05] MEDS: FOLIC/VIT B COMP W-C (RENAL) TABLET. PO SCH (13:33)
[2018-02-05] MEDS: CALCITRIOL 0.25 MCG CAPSULE. PO SCH (13:33)
[2018-02-05] MEDS: MORPHINE ER 15 MG TABLET.ER PO SCH ×2 (13:34→20:57)
[2018-02-05] MEDS: TICAGRELOR 90 MG TABLET. PO SCH ×2 (13:34→20:56)
[2018-02-05] MEDS: AMIODARONE HCL 200 MG TABLET. PO SCH (13:34)
[2018-02-05] MEDS: CARVEDILOL 12.5 MG TABLET. PO SCH ×2 (13:35→17:00)
[2018-02-05] MEDS: ASPIRIN ENTERIC COATED 81 MG TABLET.DR. PO SCH (13:35)
[2018-02-05] MEDS: carBAMazepine 200 MG TABLET PO SCH ×2 (13:35→20:56)
[2018-02-05] MEDS: CEFEPIME HCL IV Push 1 GM VIAL. IVP SCH (13:37)
[2018-02-05] MEDS ORDERED: VANCOMYCIN 1.5 GM in IV NORMAL SALINE 500ML BAG 500 ML IV ONE (14:00)
[2018-02-05] MEDS: IV NORMAL SALINE 1000ML BAG 1,000 ML IV SCH ×2 (14:06→23:50)
[2018-02-05] MEDS: VANCOMYCIN PER PHARMACY MC PRN (17:21)
[2018-02-05] MEDS: INSULIN GLARGINE 300 UNITS/3 ML INSULN.PEN. SQ SCH (20:57)
[2018-02-05] MEDS: FENOFIBRATE,MICRONIZED 134 MG CAPSULE PO SCH (20:57)
[2018-02-05] MEDS: NIACIN ER 500 MG TABLET.ER PO SCH (20:57)
[2018-02-05] MEDS: PATCH REMOVAL. MC SCH (20:57)
[2018-02-05] MEDS: ATORVASTATIN CALCIUM 40 MG TABLET. PO SCH (20:57)
[2018-02-06 03:00] VITALS: BP 133/76
[2018-02-06] MEDS ORDERED: VANCOMYCIN RANDOM LEVEL. MC ONE (05:00)
[2018-02-06 06:12] LABS: BASO # 0.1 x10^3/uL (0.0-0.2); BASO % 0 % (0-3); EOS # 0.2 x10^3/uL (0.0-0.7); EOS % 1 % (0-3); HEMATOCRIT 23.6 % (36.0-47.0); HEMOGLOBIN 7.7 g/dL (12.0-15.5); LYMPH # 1.3 x10^3/uL (1.0-4.8); LYMPH % 8 % (24-48); MEAN CORPUSCULAR HEMOGLOBIN 31 pg (25-35); MEAN CORPUSCULAR HGB CONC 33 g/dL (31-37); MEAN CORPUSCULAR VOLUME 93 fL (79-100); MONO % 6 % (0-9); NEUT # 14.8 x10^3uL (1.8-7.7); NEUT % 85 % (31-73); PLATELET COUNT 331 x10^3/uL (140-400); RED BLOOD COUNT 2.53 x10^6/uL (3.50-5.40); RED CELL DISTRIBUTION WIDTH 16.8 % (11.5-14.5); WHITE BLOOD COUNT 17.5 x10^3/uL (4.0-11.0)
[2018-02-06 06:29] LABS: ALBUMIN 2.2 g/dL (3.4-5.0); ALBUMIN/GLOBULIN RATIO 0.8 (1.0-1.7); CALCIUM 8.6 mg/dL (8.5-10.1); GFR 11.8; TOTAL BILIRUBIN 0.5 mg/dL (0.2-1.0); TOTAL PROTEIN 5.1 g/dL (6.4-8.2)
[2018-02-06 07:00] VITALS: BP 133/76
[2018-02-06] MEDS: IV NORMAL SALINE 1000ML BAG 1,000 ML IV SCH (07:00)
[2018-02-06] MEDS: HYDROmorphone 2 MG/ML VIAL IV PRN ×4 (07:51→19:50)
[2018-02-06] MEDS: CARVEDILOL 12.5 MG TABLET. PO SCH ×2 (08:00→19:02)
[2018-02-06] MEDS: INSULIN LISPRO 300 UNITS/3 ML INSULN.PEN. SQ SCH ×3 (08:00→17:00)
[2018-02-06] MEDS ORDERED: IV NORMAL SALINE 1000ML BAG 1,000 ML IV PRN ×2 (08:12)
[2018-02-06] MEDS ORDERED: DIALYSIS PATIENT. MC PRN ×2 (08:15)
[2018-02-06] MEDS ORDERED: LIDOCAINE 1% PF 2 ML VIAL. ID ONE (08:30)
[2018-02-06] MEDS ORDERED: LIDOCAINE 2% PF 2ML VIAL. ONE ×2 (08:32→09:00)
[2018-02-06] MEDS ORDERED: diphenhydrAMINE 50 MG/ML VIAL IVP ONE (09:00)
[2018-02-06] MEDS ORDERED: CEFEPIME HCL 1 GM in IV DEXTROSE 5% 50 ML IV SCH (09:00)
--- NOTE | 2018-02-06 11:55 | PDOC ---
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 History of Present Illness History of Present Illness Pt seen and examined Resting w/NAD On HD Dw RN Vitals Vitals Vital Signs Date Time Temp Pulse Resp B/P (MAP) Pulse Ox O2 Delivery O2 Flow Rate FiO2 02/06/18 07:51 Room Air 02/06/18 07:00 98.9 76 18 133/76 (95) 97 98.9 02/05/18 17:42 2.0 Physical Exam Physical Exam GENERAL: Propped up in bed, alert, in NAD HEENT: Oral cavity clear NECK: Supple LUNGS: Clear. HEART: S1, S2 regular. ABDOMEN: Soft, NT EXTREMITIES: Left BKA. RLE edema with wound vac in place . NEUROLOGIC: Alert and responds appropriately Tunnelled RIJ (01/29) General: Alert, Oriented X3, Cooperative, No acute distress Heart: Regular rate, Normal S1, Normal S2 Lungs: Wheezing Abdomen: Normal bowel sounds, Soft, No tenderness, Other (PD cath clean dry and intact) Extremities: No clubbing, Other (RLE red along staple line with swollen red foot and right groin open wound, foul smelling. LLE BKA clean. RUE fistula with good bruit) Skin: No breakdown, Other (dehiscence of the proximal right common femoral incision and vein harvest site with lower extremity edema and mild cellulitis) Labs LABS Laboratory Tests Test 02/05/18 16:07 02/05/18 20:50 02/06/18 05:50 02/06/18 07:14 Glucose (Fingerstick) 93 mg/dL (70-99) 98 mg/dL (70-99) 84 mg/dL (70-99) White Blood Count 17.5 x10^3/uL (4.0-11.0) Red Blood Count 2.53 x10^6/uL (3.50-5.40) Hemoglobin 7.7 g/dL (12.0-15.5) Hematocrit 23.6 % (36.0-47.0) Mean Corpuscular Volume 93 fL (79-100) Mean Corpuscular Hemoglobin 31 pg (25-35) Mean Corpuscular Hemoglobin Concent 33 g/dL (31-37) Red Cell Distribution Width 16.8 % (11.5-14.5) Platelet Count 331 x10^3/uL (140-400) Neutrophils (%) (Auto) 85 % (31-73) Lymphocytes (%) (Auto) 8 % (24-48) Monocytes (%) (Auto) 6 % (0-9) Eosinophils (%) (Auto) 1 % (0-3) Basophils (%) (Auto) 0 % (0-3) Neutrophils # (Auto) 14.8 x10^3uL (1.8-7.7) Lymphocytes # (Auto) 1.3 x10^3/uL (1.0-4.8) Monocytes # (Auto) 1.0 x10^3/uL (0.0-1.1) Eosinophils # (Auto) 0.2 x10^3/uL (0.0-0.7) Basophils # (Auto) 0.1 x10^3/uL (0.0-0.2) Sodium Level 140 mmol/L (136-145) Potassium Level 4.0 mmol/L (3.5-5.1) Chloride Level 103 mmol/L (98-107) Carbon Dioxide Level 28 mmol/L (21-32) Anion Gap 9 (6-14) Blood Urea Nitrogen 32 mg/dL (7-20) Creatinine 4.0 mg/dL (0.6-1.0) Estimated GFR (Cockcroft-Gault) 11.8 BUN/Creatinine Ratio 8 (6-20) Glucose Level 99 mg/dL (70-99) Calcium Level 8.6 mg/dL (8.5-10.1) Total Bilirubin 0.5 mg/dL (0.2-1.0) Aspartate Amino Transf (AST/SGOT) 19 U/L (15-37) Alanine Aminotransferase (ALT/SGPT) 12 U/L (14-59) Alkaline Phosphatase 86 U/L (46-116) Total Protein 5.1 g/dL (6.4-8.2) Albumin 2.2 g/dL (3.4-5.0) Albumin/Globulin Ratio 0.8 (1.0-1.7) Random Vancomycin Level 31.3 mcg/mL Review of Systems Review of Systems Resting NAD Assessment and Plan Assessmemt and Plan Assessment: Recent fempop Right groin wound infection Sepsis from Right LE cellulitis ESRD on PD and HD Left BKA Left retinal optic disc drusen Plan: Dialysis Home Meds Labs IV Abx PT/OT Probable discharge to LTAC next week Comment Review of Relevant I have reviewed the following items bert (where applicable) has been applied. Labs Laboratory Tests Test 02/04/18 14:06 02/04/18 17:06 02/04/18 21:20 02/05/18 04:35 Glucose (Fingerstick) 146 mg/dL (70-99) 131 mg/dL (70-99) 113 mg/dL (70-99) White Blood Count 17.1 x10^3/uL (4.0-11.0) Red Blood Count 1.99 x10^6/uL (3.50-5.40) Hemoglobin 6.4 g/dL (12.0-15.5) Hematocrit 19.0 % (36.0-47.0) Mean Corpuscular Volume 94 fL (79-100) Mean Corpuscular Hemoglobin 32 pg (25-35) Mean Corpuscular Hemoglobin Concent 34 g/dL (31-37) Red Cell Distribution Width 16.7 % (11.5-14.5) Platelet Count 287 x10^3/uL (140-400) Neutrophils (%) (Auto) 84 % (31-73) Lymphocytes (%) (Auto) 8 % (24-48) Monocytes (%) (Auto) 6 % (0-9) Eosinophils (%) (Auto) 1 % (0-3) Basophils (%) (Auto) 1 % (0-3) Neutrophils # (Auto) 14.3 x10^3uL (1.8-7.7) Lymphocytes # (Auto) 1.4 x10^3/uL (1.0-4.8) Monocytes # (Auto) 1.0 x10^3/uL (0.0-1.1) Eosinophils # (Auto) 0.2 x10^3/uL (0.0-0.7) Basophils # (Auto) 0.1 x10^3/uL (0.0-0.2) Sodium Level 140 mmol/L (136-145) Potassium Level 3.9 mmol/L (3.5-5.1) Chloride Level 102 mmol/L (98-107) Carbon Dioxide Level 30 mmol/L (21-32) Anion Gap 8 (6-14) Blood Urea Nitrogen 26 mg/dL (7-20) Creatinine 3.1 mg/dL (0.6-1.0) Estimated GFR (Cockcroft-Gault) 15.8 BUN/Creatinine Ratio 8 (6-20) Glucose Level 79 mg/dL (70-99) Calcium Level 8.5 mg/dL (8.5-10.1) Total Bilirubin 0.4 mg/dL (0.2-1.0) Aspartate Amino Transf (AST/SGOT) 16 U/L (15-37) Alanine Aminotransferase (ALT/SGPT) 11 U/L (14-59) Alkaline Phosphatase 89 U/L (46-116) Total Protein 5.2 g/dL (6.4-8.2) Albumin 2.4 g/dL (3.4-5.0) Albumin/Globulin Ratio 0.9 (1.0-1.7) Test 02/05/18 07:49 02/05/18 16:07 02/05/18 20:50 02/06/18 05:50 Glucose (Fingerstick) 63 mg/dL (70-99) 93 mg/dL (70-99) 98 mg/dL (70-99) White Blood Count 17.5 x10^3/uL (4.0-11.0) Red Blood Count 2.53 x10^6/uL (3.50-5.40) Hemoglobin 7.7 g/dL (12.0-15.5) Hematocrit 23.6 % (36.0-47.0) Mean Corpuscular Volume 93 fL (79-100) Mean Corpuscular Hemoglobin 31 pg (25-35) Mean Corpuscular Hemoglobin Concent 33 g/dL (31-37) Red Cell Distribution Width 16.8 % (11.5-14.5) Platelet Count 331 x10^3/uL (140-400) Neutrophils (%) (Auto) 85 % (31-73) Lymphocytes (%) (Auto) 8 % (24-48) Monocytes (%) (Auto) 6 % (0-9) Eosinophils (%) (Auto) 1 % (0-3) Basophils (%) (Auto) 0 % (0-3) Neutrophils # (Auto) 14.8 x10^3uL (1.8-7.7) Lymphocytes # (Auto) 1.3 x10^3/uL (1.0-4.8) Monocytes # (Auto) 1.0 x10^3/uL (0.0-1.1) Eosinophils # (Auto) 0.2 x10^3/uL (0.0-0.7) Basophils # (Auto) 0.1 x10^3/uL (0.0-0.2) Sodium Level 140 mmol/L (136-145) Potassium Level 4.0 mmol/L (3.5-5.1) Chloride Level 103 mmol/L (98-107) Carbon Dioxide Level 28 mmol/L (21-32) Anion Gap 9 (6-14) Blood Urea Nitrogen 32 mg/dL (7-20) Creatinine 4.0 mg/dL (0.6-1.0) Estimated GFR (Cockcroft-Gault) 11.8 BUN/Creatinine Ratio 8 (6-20) Glucose Level 99 mg/dL (70-99) Calcium Level 8.6 mg/dL (8.5-10.1) Total Bilirubin 0.5 mg/dL (0.2-1.0) Aspartate Amino Transf (AST/SGOT) 19 U/L (15-37) Alanine Aminotransferase (ALT/SGPT) 12 U/L (14-59) Alkaline Phosphatase 86 U/L (46-116) Total Protein 5.1 g/dL (6.4-8.2) Albumin 2.2 g/dL (3.4-5.0) Albumin/Globulin Ratio 0.8 (1.0-1.7) Random Vancomycin Level 31.3 mcg/mL Test 02/06/18 07:14 Glucose (Fingerstick) 84 mg/dL (70-99) Laboratory Tests Test 02/05/18 16:07 02/05/18 20:50 02/06/18 05:50 02/06/18 07:14 Glucose (Fingerstick) 93 mg/dL (70-99) 98 mg/dL (70-99) 84 mg/dL (70-99) White Blood Count 17.5 x10^3/uL (4.0-11.0) Red Blood Count 2.53 x10^6/uL (3.50-5.40) Hemoglobin 7.7 g/dL (12.0-15.5) Hematocrit 23.6 % (36.0-47.0) Mean Corpuscular Volume 93 fL (79-100) Mean Corpuscular Hemoglobin 31 pg (25-35) Mean Corpuscular Hemoglobin Concent 33 g/dL (31-37) Red Cell Distribution Width 16.8 % (11.5-14.5) Platelet Count 331 x10^3/uL (140-400) Neutrophils (%) (Auto) 85 % (31-73) Lymphocytes (%) (Auto) 8 % (24-48) Monocytes (%) (Auto) 6 % (0-9) Eosinophils (%) (Auto) 1 % (0-3) Basophils (%) (Auto) 0 % (0-3) Neutrophils # (Auto) 14.8 x10^3uL (1.8-7.7) Lymphocytes # (Auto) 1.3 x10^3/uL (1.0-4.8) Monocytes # (Auto) 1.0 x10^3/uL (0.0-1.1) Eosinophils # (Auto) 0.2 x10^3/uL (0.0-0.7) Basophils # (Auto) 0.1 x10^3/uL (0.0-0.2) Sodium Level 140 mmol/L (136-145) Potassium Level 4.0 mmol/L (3.5-5.1) Chloride Level 103 mmol/L (98-107) Carbon Dioxide Level 28 mmol/L (21-32) Anion Gap 9 (6-14) Blood Urea Nitrogen 32 mg/dL (7-20) Creatinine 4.0 mg/dL (0.6-1.0) Estimated GFR (Cockcroft-Gault) 11.8 BUN/Creatinine Ratio 8 (6-20) Glucose Level 99 mg/dL (70-99) Calcium Level 8.6 mg/dL (8.5-10.1) Total Bilirubin 0.5 mg/dL (0.2-1.0) Aspartate Amino Transf (AST/SGOT) 19 U/L (15-37) Alanine Aminotransferase (ALT/SGPT) 12 U/L (14-59) Alkaline Phosphatase 86 U/L (46-116) Total Protein 5.1 g/dL (6.4-8.2) Albumin 2.2 g/dL (3.4-5.0) Albumin/Globulin Ratio 0.8 (1.0-1.7) Random Vancomycin Level 31.3 mcg/mL Microbiology 01/26/18 Blood Culture - Final, Complete NO GROWTH AFTER 5 DAYS 01/27/18 Anaerobic/Aerobic Culture - Final, Complete 01/27/18 Anaerobic Culture Result 1 (ROSALIND) - Final, Complete 01/27/18 Aerobic Culture - Final, Complete 01/27/18 Aerobic Culture Result 1 (ROSALIND) - Final, Complete 01/27/18 Antimicrobic Susceptibility - Final, Complete 01/27/18 Gram Stain - Final, Complete 01/27/18 Gram Stain Result 1 (ROSALIND) - Final, Complete 01/27/18 Gram Stain Result 2 (ROSALIND) - Final, Complete Medications Current Medications Hydromorphone HCl (Dilaudid) 2 mg 1X ONCE IV Last administered on 01/26/18at 22 :39; Start 01/26/18 at 22:00; Stop 01/26/18 at 22:01; Status DC Vancomycin HCl (Vanco Per Pharmacy) 1 each PRN DAILY PRN MC SEE COMMENTS Last administered on 01/31/18at 17:20; Start 01/26/18 at 22:45; Stop 02/01/18 at 11:41 ; Status DC Vancomycin HCl 1.75 gm/Sodium Chloride 500 ml @ 250 mls/hr 1X ONCE IV Last administered on 01/26/18at 23:53; Start 01/26/18 at 23:00; Stop 01/27/18 at 00:59 ; Status DC Ondansetron HCl (Zofran) 4 mg PRN Q8HRS PRN IV NAUSEA/VOMITING 1ST CHOICE; Start 01/26/18 at 23:15; Stop 01/27/18 at 23:14; Status DC Sodium Chloride 1,000 ml @ 75 mls/hr [id number] IV Last administered on at 00:39; Start 01/26/18 at 23:30; Stop 01/27/18 at 23:29; Status DC Pharmacy Consult (C.diff Med Screen By Rx) 1 each 1X ONCE MC ; Start 01/27/18 at 01:00; Stop 01/27/18 at 01:01; Status Cancel Influenza Virus Vaccine (Afluria Trivalent [id number] Syringe) 0.5 ml ONCE ONCE VAX IM Last administered on 01/27/18at 09:00; Start 01/27/18 at 09:00; Stop 01/27/18 at 09:01; Status DC Vancomycin HCl (Vancomycin Random Level) 1 each 1X ONCE MC Last administered on 01/28/18at 05:00; Start 01/28/18 at 05:00; Stop 01/28/18 at 05:01; Status DC Hydromorphone HCl (Dilaudid) 1 mg PRN Q3HRS PRN IV SEVERE PAIN Last administered on 02/06/18at 07:51; Start 01/27/18 at 03:30 Ondansetron HCl (Zofran) 4 mg PRN Q6HRS PRN IV NAUSEA/VOMITING; Start 01/27/18 at 10:45; Stop 01/27/18 at 18:00; Status DC Fentanyl Citrate (Fentanyl 2ml Vial) 25 mcg PRN Q5MIN PRN IV MILD PAIN; Start 01/27/18 at 10:45; Stop 01/27/18 at 18:00; Status DC Fentanyl Citrate (Fentanyl 2ml Vial) 50 mcg PRN Q5MIN PRN IV MODERATE TO SEVERE PAIN; Start 01/27/18 at 10:45; Stop 01/27/18 at 18:00; Status DC Morphine Sulfate (Morphine Sulfate) 1 mg PRN Q10MIN PRN IV SEVERE PAIN Last administered on 01/27/18at 16:28; Start 01/27/18 at 10:45; Stop 01/27/18 at 18:00 ; Status DC Ringer's Solution 1,000 ml @ 30 mls/hr Q24H IV Last administered on 01/27/18at 10:35; Start 01/27/18 at 10:35; Stop 01/27/18 at 19:36; Status DC Lidocaine HCl (Xylocaine-Mpf 1% 2ml Vial) 2 ml 1X PRN PRN ID IV START; Start 01/27/18 at 10:45; Stop 01/27/18 at 18:00; Status DC Hydromorphone HCl (Dilaudid) 0.5 mg PRN Q10MIN PRN IV SEV PAIN, Second choice Last administered on 01/27/18at 15:59; Start 01/27/18 at 10:45; Stop 01/27/18 at 18:00; Status DC Prochlorperazine Edisylate (Compazine) 5 mg PACU PRN PRN IV NAUSEA, MRX1; Start 01/27/18 at 10:45; Stop 01/27/18 at 18:00; Status DC Amiodarone HCl (Cordarone) 200 mg DAILY PO Last administered on 02/05/18at 13: 34; Start 01/27/18 at 12:30 Aspirin (Anthony Aspirin) 325 mg DAILY PO Last administered on 01/28/18at 09:13; Start 01/27/18 at 12:30; Stop 01/28/18 at 14:26; Status DC Carbamazepine (TEGretol) 200 mg BID PO Last administered on 02/05/18at 20:56; Start 01/27/18 at 12:30 Carvedilol (Coreg) 12.5 mg BIDWMEALS PO Last administered on 02/05/18at 17:00; Start 01/27/18 at 12:30 Vitamin B Complex/ Vitamin C (Melly-Shabbir) 1 tab DAILY PO Last administered on at 13:33; Start 01/27/18 at 12:30 Furosemide (Lasix) 80 mg [id number] PO Last administered on 02/05/18 13:35; Start 01/27/18 at 12:30 Insulin Glargine (Lantus) 22 units QHS SQ Last administered on 02/04/18at 22:05 ; Start 01/27/18 at 21:00 Morphine Sulfate (Ms Contin) 15 mg BID PO Last administered on 02/05/18at 20:57 ; Start 01/27/18 at 12:30 Nitroglycerin (Nitrostat) 0.4 mg PRN Q5MIN PRN SL CHEST PAIN; Start 01/27/18 at 12:00 Nystatin (Nystop) 1 susanna PRN BID PRN TP SKIN BREAKDOWN; Start 01/27/18 at 12:00 Tramadol HCl (Ultram) 50 mg PRN Q4HRS PRN PO HEADACHE; Start 01/27/18 at 12:00 Non-Formulary Medication (Albuterol Sulfate (Proventil Hfa Inhaler)) 2 puff BID PRN IH FOR ASTHMA; Start 01/27/18 at 12:00; Status UNV Atorvastatin Calcium (Lipitor) 80 mg QHS PO Last administered on 02/05/18 20: 57; Start 01/27/18 at 21:00 Calcitriol (Rocaltrol) 0.25 mcg DAILY PO Last administered on 02/05/18 13:33 ; Start 01/27/18 at 12:30 Diltiazem HCl (Cardizem 24hr Cd) 120 mg DAILY PO Last administered on 13:36; Start 01/27/18 at 12:30 Erythromycin (E-Mycin) 250 mg BID PO Last administered on 02/05/18 13:33; Start 01/27/18 at 21:00 Fenofibrate (Lofibra) 134 mg QHS PO Last administered on 02/05/18 20:57; Start 01/27/18 at 21:00 Non-Formulary Medication (Fluconazole (Diflucan)) 100 mg PRN PO ; Start at 12:00; Status UNV Lidocaine (Lidoderm) 1 patch PRN DAILY PRN TD PAIN; Start 01/27/18 at 09:00 Niacin (Slo-Niacin) 500 mg QHS PO Last administered on 02/05/18 20:57; Start 01/27/18 at 21:00 Ondansetron HCl (Zofran Odt) 4 mg PRN Q6HRS PRN PO NAUSEA/VOMITING; Start 01/27 at 12:15 Miscellaneous (Lidoderm Patch Removal) 1 ea QHS MC Last administered on 20:57; Start 01/27/18 at 21:00 Albuterol Sulfate (Ventolin Neb Soln) 2.5 mg PRN BID PRN NEB SHORTNESS OF BREATH Last administered on 01/27/18at 21:59; Start 01/27/18 at 12:30 Lidocaine HCl (Lidocaine 1% 50ml Vial) 50 ml 1X ONCE INJ Last administered on 01/27/18at 14:06; Start 01/27/18 at 12:45; Stop 01/27/18 at 12:46; Status DC Hydromorphone HCl (Dilaudid) 2 mg STK-MED ONCE .ROUTE ; Start 01/27/18 at 12:36 ; Stop 01/27/18 at 12:38; Status DC Propofol 20 ml @ As Directed STK-MED ONCE IV ; Start 01/27/18 at 12:38; Stop at 12:39; Status DC Bacitracin 19092 unit/Sodium Chloride 3,000 ml @ 0 mls/hr 1X ONCE IR ; Start 01/27/18 at 13:15; Stop 01/27/18 at 13:16; Status Cancel Dexamethasone Sodium Phosphate (Decadron) 20 mg STK-MED ONCE .ROUTE ; Start 01/27/18 at 13:11; Stop 01/27/18 at 13:12; Status DC Ondansetron HCl (Zofran) 4 mg STK-MED ONCE .ROUTE ; Start 01/27/18 at 13:11; Stop 01/27/18 at 13:12; Status DC Sevoflurane (Ultane) 30 ml STK-MED ONCE IH ; Start 01/27/18 at 13:11; Stop 01/27 at 13:12; Status DC Bacitracin (Bacitracin) 50,000 unit STK-MED ONCE IRR Last administered on at 13:58; Start 01/27/18 at 12:14; Stop 01/27/18 at 13:16; Status DC Clopidogrel Bisulfate (Plavix) 75 mg DAILYWBKFT PO Last administered on at 09:13; Start 01/28/18 at 08:00; Stop 01/28/18 at 14:28; Status DC Hydromorphone HCl (Dilaudid) 2 mg STK-MED ONCE .ROUTE ; Start 01/27/18 at 15:38 ; Stop 01/27/18 at 15:40; Status DC Gentamicin Sulfate 235 mg/ Dextrose 105.875 ml @ 105.875 mls/hr 1X ONCE IV Last administered on 01/27/18at 19:56; Start 01/27/18 at 16:00; Stop 01/27/18 at 16:59; Status DC Lactobacillus Rhamnosus (Culturelle) 1 cap BID PO Last administered on at 13:33; Start 01/27/18 at 21:00 Cefepime HCl 1 gm/ Dextrose 50 ml @ 100 mls/hr DAILY IV ; Start 01/29/18 at 09: 00; Status UNV Metronidazole 100 ml @ 100 mls/hr Q12HR IV Last administered on 02/02/18at 21: 00; Start 01/28/18 at 10:00; Stop 02/03/18 at 10:49; Status DC Cefepime HCl (Maxipime) 1 gm Q24H IVP Last administered on 02/03/18at 10:54; Start 01/28/18 at 10:00; Stop 02/04/18 at 12:02; Status DC Lidocaine HCl (Xylocaine-Mpf 2% Vial) 2 ml STK-MED ONCE .ROUTE ; Start 01/28/18 at 11:41; Stop 01/28/18 at 11:42; Status DC Sodium Chloride 1,000 ml @ 1,000 mls/hr Q1H PRN IV hypotension; Start 01/28/18 at 12:09; Stop 01/28/18 at 18:08; Status DC Info (PHARMACY MONITORING -- do not chart) 1 each PRN DAILY PRN MC SEE COMMENTS ; Start 01/28/18 at 12:15; Status UNV Info (PHARMACY MONITORING -- do not chart) 1 each PRN DAILY PRN MC SEE COMMENTS ; Start 01/28/18 at 12:15; Stop 01/31/18 at 09:10; Status DC Lidocaine HCl (Xylocaine-Mpf 2% Vial) 2 ml 1X ONCE INJ ; Start 01/28/18 at 12: 15; Stop 01/28/18 at 12:21; Status DC Ticagrelor (Brilinta) 90 mg BID PO Last administered on 02/05/18at 20:56; Start 01/28/18 at 21:00 Diphenhydramine HCl (Benadryl) 25 mg PRN Q6HRS PRN PO ITCHING; Start 01/28/18 at 14:15 Aspirin (Ecotrin) 81 mg DAILYWBKFT PO Last administered on 02/05/18at 13:35; Start 01/29/18 at 08:00 Insulin Human Lispro (HumaLOG) 0-5 UNITS TIDWMEALS SQ Last administered on 03/14at 08:47; Start 01/28/18 at 17:00 Dextrose (Dextrose 50%-Water Syringe) 12.5 gm PRN Q15MIN PRN IV SEE COMMENTS Last administered on 02/05/18at 08:50; Start 01/28/18 at 14:45 Hydralazine HCl (Apresoline) 10 mg PRN TID PRN PO hypertension; Start 01/28/18 at 14:45 Oxycodone/ Acetaminophen (Percocet 10/325) 1 tab PRN Q4HRS PRN PO pain SEVERE Last administered on 02/03/18at 10:48; Start 01/29/18 at 07:45 Promethazine HCl (Phenergan Supp) 12.5 mg 1X ONCE CO ; Start 01/29/18 at 12:15 ; Stop 01/29/18 at 12:36; Status DC Promethazine HCl (Phenergan Im) 12.5 mg 1X ONCE IM ; Start 01/29/18 at 12:45; Stop 01/29/18 at 12:46; Status DC Lidocaine/ Epinephrine (LIDOCAINE 1%-EPI 1:100,000 Multi-Dose) 20 ml STK-MED ONCE .ROUTE ; Start 01/29/18 at 12:45; Stop 01/29/18 at 12:47; Status DC Heparin Sodium (Porcine) (Hep Lock Adult) 500 unit STK-MED ONCE IV ; Start 01/29 at 12:45; Stop 01/29/18 at 12:47; Status DC Morphine Sulfate (Morphine Sulfate) 10 mg STK-MED ONCE .ROUTE ; Start 01/29/18 at 13:23; Stop 01/29/18 at 13:25; Status DC Midazolam HCl (Versed) 2 mg STK-MED ONCE .ROUTE ; Start 01/29/18 at 13:23; Stop 01/29/18 at 13:25; Status DC Morphine Sulfate (Morphine Sulfate) 1 mg PRN Q10MIN PRN IV SEVERE PAIN Last administered on 02/01/18at 15:46; Start 02/01/18 at 07:00; Stop 02/02/18 at 06:59 ; Status DC Ringer's Solution 1,000 ml @ 30 mls/hr Q24H IV ; Start 02/01/18 at 07:00; Stop 02/01/18 at 18:59; Status DC Lidocaine HCl (Xylocaine-Mpf 1% 2ml Vial) 2 ml PRN 1X PRN ID PRIOR TO IV START ; Start 02/01/18 at 07:00; Stop 02/02/18 at 06:59; Status DC Hydromorphone HCl (Dilaudid) 0.5 mg PRN Q10MIN PRN IV SEV PAIN, Second choice Last administered on 02/01/18at 16:08; Start 02/01/18 at 07:00; Stop 02/02/18 at 06:59; Status DC Prochlorperazine Edisylate (Compazine) 5 mg PACU PRN PRN IV NAUSEA, MRX1; Start 02/01/18 at 07:00; Stop 02/02/18 at 06:59; Status DC Lidocaine/ Epinephrine (LIDOCAINE 1%-EPI 1:100,000 Multi-Dose) 8 ml 1X ONCE IJ Last administered on 01/29/18at 14:01; Start 01/29/18 at 14:00; Stop 01/29/18 at 14:17; Status DC Heparin Sodium (Porcine) (Hep Lock Adult) 500 unit 1X ONCE IV Last administered on 01/29/18at 14:04; Start 01/29/18 at 14:00; Stop 01/29/18 at 14:17 ; Status DC Morphine Sulfate (Morphine Sulfate) 5 mg 1X ONCE IV Last administered on at 14:01; Start 01/29/18 at 14:00; Stop 01/29/18 at 14:17; Status DC Ondansetron HCl (Zofran) 4 mg PRN Q6HRS PRN IV NAUSEA/VOMITING 1ST CHOICE Last administered on 02/02/18at 09:51; Start 01/29/18 at 14:45 Vancomycin HCl 500 mg/Sodium Chloride 100 ml @ 100 mls/hr 1X ONCE IV Last administered on 01/29/18at 21:04; Start 01/29/18 at 18:00; Stop 01/29/18 at 18:59 ; Status DC Sodium Chloride 1,000 ml @ 1,000 mls/hr Q1H PRN IV hypotension; Start 01/30/18 at 13:09; Stop 01/30/18 at 19:08; Status DC Sodium Chloride (Normal Saline Flush) 10 ml 1X PRN PRN IV AP catheter pack; Start 01/30/18 at 13:15; Stop 01/31/18 at 13:14; Status DC Sodium Chloride (Normal Saline Flush) 10 ml 1X PRN PRN IV STAGE HAND catheter pack; Start 01/30/18 at 13:15; Stop 01/31/18 at 13:14; Status DC Sodium Chloride 1,000 ml @ 400 mls/hr Q2H30M PRN IV PATENCY; Start 01/30/18 at 13:09; Stop 01/31/18 at 01:08; Status DC Info (PHARMACY MONITORING -- do not chart) 1 each PRN DAILY PRN MC SEE COMMENTS ; Start 01/30/18 at 13:15; Stop 01/30/18 at 13:17; Status DC Info (PHARMACY MONITORING -- do not chart) 1 each PRN DAILY PRN MC SEE COMMENTS ; Start 01/30/18 at 13:15; Stop 02/04/18 at 07:27; Status DC Lidocaine HCl (Lidocaine 1% 50ml Vial) 50 ml 1X ONCE INJ ; Start 01/30/18 at 15 :45; Stop 01/30/18 at 15:46; Status DC Vancomycin HCl 500 mg/Sodium Chloride 100 ml @ 100 mls/hr ONCE ONCE IV Last administered on 01/30/18at 20:49; Start 01/30/18 at 18:00; Stop 01/30/18 at 18:59 ; Status DC Cefazolin Sodium 1 gm/Sodium Chloride 500 ml @ 500 mls/hr 1X ONCE IRR ; Start 02/01/18 at 06:00; Stop 02/01/18 at 06:59; Status DC Lidocaine HCl (Xylocaine-Mpf 2% Vial) 2 ml STK-MED ONCE .ROUTE ; Start 01/28/18 at 12:00; Stop 02/01/18 at 08:30; Status DC Darbepoetin Mauricio (Aranesp) 60 mcg [id number] SQ Last administered on 02/01/18at 21 :38; Start 02/01/18 at 21:00 Cellulose (Surgicel Fibrillar 1x2) 1 each STK-MED ONCE .ROUTE ; Start 02/01/18 at 12:05; Stop 02/01/18 at 13:06; Status DC Lidocaine HCl (Xylocaine 1% Pf 30ml Vial) 30 ml 1X ONCE INJ ; Start 02/01/18 at 13:15; Stop 02/01/18 at 13:18; Status DC Sodium Chloride 1,000 ml @ 75 mls/hr [id number] IV Last administered on at 00:15; Start 02/01/18 at 13:45; Stop 02/02/18 at 16:43; Status DC Morphine Sulfate (Morphine Sulfate) 10 mg STK-MED ONCE .ROUTE ; Start 02/01/18 at 14:24; Stop 02/01/18 at 14:25; Status DC Midazolam HCl (Versed) 2 mg STK-MED ONCE .ROUTE ; Start 02/01/18 at 14:24; Stop 02/01/18 at 14:25; Status DC Midazolam HCl (Versed) 2 mg STK-MED ONCE .ROUTE ; Start 02/01/18 at 14:25; Stop 02/01/18 at 14:26; Status DC Propofol 20 ml @ As Directed STK-MED ONCE IV ; Start 02/01/18 at 14:25; Stop at 14:26; Status DC Dexamethasone Sodium Phosphate (Decadron) 20 mg STK-MED ONCE .ROUTE ; Start 02/01/18 at 14:25; Stop 02/01/18 at 14:26; Status DC Ondansetron HCl (Zofran) 4 mg STK-MED ONCE .ROUTE ; Start 02/01/18 at 14:25; Stop 02/01/18 at 14:26; Status DC Bacitracin (Bacitracin) 50,000 unit STK-MED ONCE IRR Last administered on at 14:55; Start 02/01/18 at 13:32; Stop 02/01/18 at 14:32; Status DC Vancomycin HCl 500 mg/Sodium Chloride 100 ml @ 100 mls/hr [id number] IV Last administered on 02/02/18at 16:15; Start 02/02/18 at 16:00; Stop 02/04/18 at 12: 02; Status DC Sodium Chloride 1,000 ml @ 1,000 mls/hr Q1H PRN IV hypotension; Start 02/02/18 at 09:39; Stop 02/02/18 at 15:38; Status DC Albumin Human 200 ml @ 200 mls/hr 1X PRN PRN IV Hypotension; Start 02/02/18 at 09:45; Stop 02/02/18 at 15:44; Status DC Sodium Chloride 1,000 ml @ 400 mls/hr Q2H30M PRN IV PATENCY; Start 02/02/18 at 09:39; Stop 02/02/18 at 21:38; Status DC Info (PHARMACY MONITORING -- do not chart) 1 each PRN DAILY PRN MC SEE COMMENTS ; Start 02/02/18 at 09:45; Stop 02/04/18 at 07:28; Status DC Info (PHARMACY MONITORING -- do not chart) 1 each PRN DAILY PRN MC SEE COMMENTS ; Start 02/02/18 at 09:45; Status UNV Prochlorperazine Edisylate (Compazine) 10 mg PRN Q6HRS PRN IV NAUSEA/VOMITING 2ND CHOICE Last administered on 02/02/18at 23:23; Start 02/02/18 at 11:30 Vancomycin HCl (Vanco Per Pharmacy) 1 each PRN DAILY PRN MC SEE COMMENTS Last administered on 02/02/18at 13:57; Start 02/02/18 at 14:00; Stop 02/04/18 at 12: 02; Status DC Famotidine (Pepcid Vial) 20 mg DAILY IVP Last administered on 02/04/18at 14:25 ; Start 02/03/18 at 10:00 Alteplase, Recombinant (Cathflo) 2 mg 1X ONCE INT CAT Last administered on 03/14at 02:56; Start 02/04/18 at 03:00; Stop 02/04/18 at 03:01; Status DC Sodium Chloride 1,000 ml @ 1,000 mls/hr Q1H PRN IV hypotension; Start at 07:15; Stop 02/04/18 at 13:14; Status DC Albumin Human 200 ml @ 200 mls/hr 1X PRN PRN IV Hypotension Last administered on 02/04/18at 11:26; Start 02/04/18 at 07:15; Stop 02/04/18 at 13:14; Status DC Acetaminophen (Tylenol) 500 mg 1X PRN PRN PO MILD PAIN / TEMP; Start 02/04/18 at 07:15; Stop 02/05/18 at 07:14; Status DC Diphenhydramine HCl (Benadryl) 25 mg 1X PRN PRN IV ITCHING; Start 02/04/18 at 07:15; Stop 02/05/18 at 07:14; Status DC Diphenhydramine HCl (Benadryl) 25 mg 1X PRN PRN IV ITCHING; Start 02/04/18 at 07:15; Stop 02/05/18 at 07:14; Status DC Sodium Chloride 1,000 ml @ 400 mls/hr Q2H30M PRN IV PATENCY; Start 02/04/18 at 07:15; Stop 02/04/18 at 19:14; Status DC Info (PHARMACY MONITORING -- do not chart) 1 each PRN DAILY PRN MC SEE COMMENTS ; Start 02/04/18 at 07:15 Lidocaine HCl (Xylocaine-Mpf 2% Vial) 2 ml STK-MED ONCE .ROUTE ; Start at 09:43; Stop 02/04/18 at 09:44; Status DC Docusate Sodium (Colace) 100 mg PRN DAILY PRN PO CONSTIPATION; Start 02/04/18 at 10:30 Ceftriaxone Sodium 2 gm/ Dextrose 100 ml @ 200 mls/hr Q24H IV Last administered on 02/04/18at 14:24; Start 02/04/18 at 13:00; Stop 02/05/18 at 11 :49; Status DC Morphine Sulfate (Morphine Sulfate) 1 mg PRN Q10MIN PRN IV SEVERE PAIN; Start 02/05/18 at 07:00; Stop 02/06/18 at 06:59; Status DC Ringer's Solution 1,000 ml @ 30 mls/hr Q24H IV ; Start 02/05/18 at 07:00; Stop 02/05/18 at 18:59; Status DC Lidocaine HCl (Xylocaine-Mpf 1% 2ml Vial) 2 ml PRN 1X PRN ID IV START; Start 02/05/18 at 07:00; Stop 02/06/18 at 06:59; Status DC Hydromorphone HCl (Dilaudid) 0.5 mg PRN Q10MIN PRN IV SEV PAIN, Second choice; Start 02/05/18 at 07:00; Stop 02/06/18 at 06:59; Status DC Prochlorperazine Edisylate (Compazine) 5 mg PACU PRN PRN IV NAUSEA, MRX1; Start 02/05/18 at 07:00; Stop 02/06/18 at 06:59; Status DC Lidocaine HCl (Xylocaine-Mpf 2% Vial) 2 ml STK-MED ONCE .ROUTE ; Start at 10:00; Stop 02/05/18 at 08:19; Status DC Sodium Chloride 1,000 ml @ 75 mls/hr [id number] IV Last administered on at 23:50; Start 02/05/18 at 10:30 Cefepime HCl 1 gm/ Dextrose 50 ml @ 100 mls/hr DAILY IV ; Start 02/06/18 at 09 :00; Status UNV Vancomycin HCl (Vanco Per Pharmacy) 1 each PRN DAILY PRN MC SEE COMMENTS Last administered on 02/05/18at 17:21; Start 02/05/18 at 12:00 Cefepime HCl (Maxipime) 1 gm Q24H IVP Last administered on 02/05/18at 13:37; Start 02/05/18 at 12:00 Propofol 20 ml @ As Directed STK-MED ONCE IV ; Start 02/05/18 at 12:08; Stop 02/05/18 at 12:09; Status DC Lidocaine HCl (Xylocaine-Mpf 2% Vial) 2 ml STK-MED ONCE .ROUTE ; Start at 12:08; Stop 02/05/18 at 12:09; Status DC Vancomycin HCl 1.5 gm/Sodium Chloride 500 ml @ 250 mls/hr 1X ONCE IV Last administered on 02/05/18at 14:05; Start 02/05/18 at 14:00; Stop 02/05/18 at 15 :59; Status DC Vancomycin HCl (Vancomycin Random Level) 1 each 1X ONCE MC Last administered on 02/06/18at 05:00; Start 02/06/18 at 05:00; Stop 02/06/18 at 05:01; Status DC Sodium Chloride 1,000 ml @ 1,000 mls/hr Q1H PRN IV hypotension; Start at 08:12; Stop 02/06/18 at 14:11 Sodium Chloride 1,000 ml @ 400 mls/hr Q2H30M PRN IV PATENCY; Start 02/06/18 at 08:12; Stop 02/06/18 at 20:11 Info (PHARMACY MONITORING -- do not chart) 1 each PRN DAILY PRN MC SEE COMMENTS ; Start 02/06/18 at 08:15; Status UNV Info (PHARMACY MONITORING -- do not chart) 1 each PRN DAILY PRN MC SEE COMMENTS ; Start 02/06/18 at 08:15; Status UNV Lidocaine HCl (Xylocaine-Mpf 1% 2ml Vial) 2 ml 1X ONCE ID Last administered on 02/06/18at 08:30; Start 02/06/18 at 08:30; Stop 02/06/18 at 08:31; Status DC Lidocaine HCl (Xylocaine-Mpf 2% Vial) 2 ml STK-MED ONCE .ROUTE ; Start at 08:32; Stop 02/06/18 at 08:33; Status DC Diphenhydramine HCl (Benadryl) 50 mg 1X ONCE IVP Last administered on at 09:10; Start 02/06/18 at 09:00; Stop 02/06/18 at 09:02; Status DC Active Scripts Active Percocet 10-325 Mg Tablet (Oxycodone/Acetaminophen) 1 Each Tablet 1 Tab PO Q4HRS Brilinta (Ticagrelor) 90 Mg Tablet 90 Mg PO BID 30 Days Morphine Sulfate Er (Morphine Sulfate) 15 Mg Tablet.er 15 Mg PO BID Reported Brilinta (Ticagrelor) 90 Mg Tablet 90 Mg PO BID Lidocaine 1 Each Adh..patch 1 Each TP PRN DAILY PRN Calcitriol 0.25 Mcg Capsule 1 Cap PO DAILY Tegretol (Carbamazepine) 200 Mg Tablet 1 Tab PO BID Tramadol Hcl 50 Mg Tablet 50 Mg PO Q4HRS PRN Lantus Solostar (Insulin Glargine,Hum.rec.anlog) 100 Unit/1 Ml Insuln.pen 22 Unit SQ QHS Diflucan (Fluconazole) 100 Mg Tablet 100 Mg PO PRN Carvedilol 3.125 Mg Tablet 12.5 Mg PO BID Erythromycin (Erythromycin Base) 250 Mg Capsule.dr 250 Mg PO BID Cardizem Cd (Diltiazem Hcl) 180 Mg Cap.er.24h 120 Mg PO DAILY Amiodarone Hcl 200 Mg Tablet 1 Tab PO DAILY Nystatin 15 Gm Powder 1 Susanna TP PRN BID PRN Proventil Hfa Inhaler (Albuterol Sulfate) 6.7 Gm Hfa.aer.ad 2 Puff IH BID PRN Zofran (Ondansetron Hcl) 4 Mg Tablet 4 Mg PO Q6-8HRS PRN Nephro-Shabbir Tablet (Folic Acid/Vitamin B Comp W-C) 0.8 Mg Tablet 1 Tab PO DAILY Tricor (Fenofibrate Nanocrystallized) 145 Mg Tablet 1 Tab PO HS Lipitor (Atorvastatin Calcium) 80 Mg Tablet 80 Mg PO HS Niacin 500 Mg Tablet 500 Mg PO HS Novolog (Insulin Aspart) 100 Unit/1 Ml Cartridge 0 SQ TIDAC sliding scale Aspirin 325 Mg Tablet 325 Mg PO DAILY Furosemide 80 Mg Tablet 80 Mg PO BID Docusate Sodium 100 Mg Capsule 1 Cap PO PRN PRN Nitrostat (Nitroglycerin) 0.4 Mg Tab.subl 0.4 Mg SL PRN Q5MIN PRN Take as needed for chest pain Vitals/I & O Vital Sign - Last 24 Hours 02/05/18 02/05/18 02/05/18 02/05/18 12:42 12:44 12:53 13:03 Temp 97.8 97.8 97.8 97.8 Pulse 77 77 77 77 Resp 16 16 16 16 B/P (MAP) 146/67 148/67 158/70 162/82 Pulse Ox 96 92 98 O2 Delivery Nasal Cannula Nasal Cannula Room Air O2 Flow Rate 2 2 02/05/18 02/05/18 02/05/18 02/05/18 13:34 13:34 13:35 13:36 Pulse 77 77 77 B/P (MAP) 162/82 162/82 162/82 Pulse Ox 98 O2 Delivery Room Air O2 Flow Rate 2.0 02/05/18 02/05/18 02/05/18 02/05/18 14:06 14:46 15:00 17:00 Temp 98.9 98.9 Pulse 83 83 Resp 18 B/P (MAP) 134/57 (82) 134/57 Pulse Ox 98 98 94 O2 Delivery Room Air Room Air O2 Flow Rate 2.0 2.0 02/05/18 02/05/18 02/05/18 02/05/18 17:42 19:00 20:00 20:57 Temp 99.9 99.9 Pulse 81 Resp 18 B/P (MAP) 130/57 (81) Pulse Ox 94 92 O2 Delivery Room Air Room Air Room Air O2 Flow Rate 2.0 02/05/18 02/05/18 02/05/18 02/06/18 21:10 21:56 23:00 02:43 Temp 99.3 99.3 Pulse 81 Resp 18 B/P (MAP) 140/54 (82) Pulse Ox 96 O2 Delivery Room Air Room Air Room Air Room Air 02/06/18 02/06/18 02/06/18 03:00 07:00 07:51 Temp 98.9 98.9 98.9 98.9 Pulse 76 76 Resp 18 18 B/P (MAP) 133/76 (95) 133/76 (95) Pulse Ox 97 97 O2 Delivery Room Air Room Air Room Air Intake and Output 02/05/18 02/05/18 02/06/18 15:00 23:00 07:00 Intake Total 615 ml 440 ml 200 ml Output Total 0 ml Balance 615 ml 440 ml 200 ml PAPITO REZA III DO Feb 06, 2018 11:55
--- NOTE | 2018-02-06 13:16 | PDOC ---
Infectious Disease Note Subjective Subjective No fever last 24 hours Ongoing nausea Right groin pain-stable ROS ROS per HPI otherwise neg Vital Sign Vital Signs Vital Signs Date Time Temp Pulse Resp B/P (MAP) Pulse Ox O2 Delivery O2 Flow Rate FiO2 02/06/18 12:35 18 Room Air 02/06/18 07:00 98.9 76 133/76 (95) 97 98.9 02/05/18 17:42 2.0 Physical Exam PHYSICAL EXAM GENERAL: Propped up in bed, alert, eating LUNGS: Clear. HEART: S1, S2 regular. ABDOMEN: Soft, NT EXTREMITIES: Left BKA. RLE less swollen and red; + wrinkles. Incision well-approx w/ alberto. Wound vac in place NEUROLOGIC: Alert and responds appropriately SKIN: without rash Tunnelled RIJ (01/29) clean Labs Lab Laboratory Tests Test 02/05/18 16:07 02/05/18 20:50 02/06/18 05:50 02/06/18 07:14 Glucose (Fingerstick) 93 mg/dL (70-99) 98 mg/dL (70-99) 84 mg/dL (70-99) White Blood Count 17.5 x10^3/uL (4.0-11.0) Red Blood Count 2.53 x10^6/uL (3.50-5.40) Hemoglobin 7.7 g/dL (12.0-15.5) Hematocrit 23.6 % (36.0-47.0) Mean Corpuscular Volume 93 fL (79-100) Mean Corpuscular Hemoglobin 31 pg (25-35) Mean Corpuscular Hemoglobin Concent 33 g/dL (31-37) Red Cell Distribution Width 16.8 % (11.5-14.5) Platelet Count 331 x10^3/uL (140-400) Neutrophils (%) (Auto) 85 % (31-73) Lymphocytes (%) (Auto) 8 % (24-48) Monocytes (%) (Auto) 6 % (0-9) Eosinophils (%) (Auto) 1 % (0-3) Basophils (%) (Auto) 0 % (0-3) Neutrophils # (Auto) 14.8 x10^3uL (1.8-7.7) Lymphocytes # (Auto) 1.3 x10^3/uL (1.0-4.8) Monocytes # (Auto) 1.0 x10^3/uL (0.0-1.1) Eosinophils # (Auto) 0.2 x10^3/uL (0.0-0.7) Basophils # (Auto) 0.1 x10^3/uL (0.0-0.2) Sodium Level 140 mmol/L (136-145) Potassium Level 4.0 mmol/L (3.5-5.1) Chloride Level 103 mmol/L (98-107) Carbon Dioxide Level 28 mmol/L (21-32) Anion Gap 9 (6-14) Blood Urea Nitrogen 32 mg/dL (7-20) Creatinine 4.0 mg/dL (0.6-1.0) Estimated GFR (Cockcroft-Gault) 11.8 BUN/Creatinine Ratio 8 (6-20) Glucose Level 99 mg/dL (70-99) Calcium Level 8.6 mg/dL (8.5-10.1) Total Bilirubin 0.5 mg/dL (0.2-1.0) Aspartate Amino Transf (AST/SGOT) 19 U/L (15-37) Alanine Aminotransferase (ALT/SGPT) 12 U/L (14-59) Alkaline Phosphatase 86 U/L (46-116) Total Protein 5.1 g/dL (6.4-8.2) Albumin 2.2 g/dL (3.4-5.0) Albumin/Globulin Ratio 0.8 (1.0-1.7) Random Vancomycin Level 31.3 mcg/mL Micro 01/26/18 Blood Culture - Preliminary, Resulted NO GROWTH AFTER 4 DAYS 01/27 ANAEROBIC RES 1 Preliminary No anaerobes recovered in 24 hours. AEROBIC RES 1 Final Klebsiella pneumoniae 02/05 BC pending Objective Assessment Fever - better Right leg surgery site infection s/p excisional debridement; muscle flap & wound VAC placement on 01/27. Klebsiella (R amp) - s/p repeat I and D on 02/01 - 01/26. gram stain: GPC and GNR -- mixed chinedu. Leucocytosis ? reactive from GI bleed PAD s/p leg bypass on 01/06 ESRD Multiple antibiotic allergies Amiodarone therapy h/o VRE, MRSA, c. diff Nausea and vomiting s/p EGD 02/05. non-erosive gastritis Anemia s/p PRBC Plan Plan of Care vanc and cefepime restarted 02/05 -Previously on Rocephin and Flagyl -s/p gent x 1 on 01/27 Probiotics BC from 02/05 pending Local wound care Supportive care Attending Co-Sign The patient was seen and interviewed as well as examined at the bedside. The chart was reviewed. The case was discussed. Agree with the plan of care. KYLEIGH QUEEN APRN Feb 06, 2018 13:16 DANDY LÓPEZ MD Feb 06, 2018 15:25
[2018-02-06] MEDS: FUROSEMIDE 80 MG TABLET. PO SCH ×2 (14:00→16:27)
--- NOTE | 2018-02-06 14:22 | PDOC ---
PROGRESS NOTES Subjective Subjective seen in follow up of esrd Objective Objective Vital Signs Date Time Temp Pulse Resp B/P (MAP) Pulse Ox O2 Delivery O2 Flow Rate FiO2 02/06/18 12:35 18 Room Air 02/06/18 07:00 98.9 76 133/76 (95) 97 98.9 02/05/18 17:42 2.0 Intake and Output 02/06/18 07:00 Intake Total 1255 ml Output Total 0 ml Balance 1255 ml Intake Oral 940 ml Blood Product IV Normal Saline Flush 315 ml Output Urine Total 0 ml Physical Exam Abdomen: Normal bowel sounds, Soft, No tenderness, No hepatosplenomegaly, No masses Heart: Regular rate, Normal S1, Normal S2, No murmurs, Gallops Extremities: No clubbing, No cyanosis, No edema, Normal pulses, No tenderness/ swelling General: Alert, Oriented X3, Cooperative, No acute distress Lungs: Clear to auscultation, Normal air movement Psych/Mental Status: Mental status NL, Mood NL Diagnosis RENAL FAILURE: ESRD Assessment Assessment Problems Medical Problems: (1) Chronic renal failure Status: Acute Plan Plan of Care dialysis today and tolerated well. cont wound care and antibiotics Comment Review of Relevant I have reviewed the following items bert (where applicable) has been applied. Labs Laboratory Tests Test 02/04/18 17:06 02/04/18 21:20 02/05/18 04:35 02/05/18 07:49 Glucose (Fingerstick) 131 mg/dL (70-99) 113 mg/dL (70-99) 63 mg/dL (70-99) White Blood Count 17.1 x10^3/uL (4.0-11.0) Red Blood Count 1.99 x10^6/uL (3.50-5.40) Hemoglobin 6.4 g/dL (12.0-15.5) Hematocrit 19.0 % (36.0-47.0) Mean Corpuscular Volume 94 fL (79-100) Mean Corpuscular Hemoglobin 32 pg (25-35) Mean Corpuscular Hemoglobin Concent 34 g/dL (31-37) Red Cell Distribution Width 16.7 % (11.5-14.5) Platelet Count 287 x10^3/uL (140-400) Neutrophils (%) (Auto) 84 % (31-73) Lymphocytes (%) (Auto) 8 % (24-48) Monocytes (%) (Auto) 6 % (0-9) Eosinophils (%) (Auto) 1 % (0-3) Basophils (%) (Auto) 1 % (0-3) Neutrophils # (Auto) 14.3 x10^3uL (1.8-7.7) Lymphocytes # (Auto) 1.4 x10^3/uL (1.0-4.8) Monocytes # (Auto) 1.0 x10^3/uL (0.0-1.1) Eosinophils # (Auto) 0.2 x10^3/uL (0.0-0.7) Basophils # (Auto) 0.1 x10^3/uL (0.0-0.2) Sodium Level 140 mmol/L (136-145) Potassium Level 3.9 mmol/L (3.5-5.1) Chloride Level 102 mmol/L (98-107) Carbon Dioxide Level 30 mmol/L (21-32) Anion Gap 8 (6-14) Blood Urea Nitrogen 26 mg/dL (7-20) Creatinine 3.1 mg/dL (0.6-1.0) Estimated GFR (Cockcroft-Gault) 15.8 BUN/Creatinine Ratio 8 (6-20) Glucose Level 79 mg/dL (70-99) Calcium Level 8.5 mg/dL (8.5-10.1) Total Bilirubin 0.4 mg/dL (0.2-1.0) Aspartate Amino Transf (AST/SGOT) 16 U/L (15-37) Alanine Aminotransferase (ALT/SGPT) 11 U/L (14-59) Alkaline Phosphatase 89 U/L (46-116) Total Protein 5.2 g/dL (6.4-8.2) Albumin 2.4 g/dL (3.4-5.0) Albumin/Globulin Ratio 0.9 (1.0-1.7) Test 02/05/18 16:07 02/05/18 20:50 02/06/18 05:50 02/06/18 07:14 Glucose (Fingerstick) 93 mg/dL (70-99) 98 mg/dL (70-99) 84 mg/dL (70-99) White Blood Count 17.5 x10^3/uL (4.0-11.0) Red Blood Count 2.53 x10^6/uL (3.50-5.40) Hemoglobin 7.7 g/dL (12.0-15.5) Hematocrit 23.6 % (36.0-47.0) Mean Corpuscular Volume 93 fL (79-100) Mean Corpuscular Hemoglobin 31 pg (25-35) Mean Corpuscular Hemoglobin Concent 33 g/dL (31-37) Red Cell Distribution Width 16.8 % (11.5-14.5) Platelet Count 331 x10^3/uL (140-400) Neutrophils (%) (Auto) 85 % (31-73) Lymphocytes (%) (Auto) 8 % (24-48) Monocytes (%) (Auto) 6 % (0-9) Eosinophils (%) (Auto) 1 % (0-3) Basophils (%) (Auto) 0 % (0-3) Neutrophils # (Auto) 14.8 x10^3uL (1.8-7.7) Lymphocytes # (Auto) 1.3 x10^3/uL (1.0-4.8) Monocytes # (Auto) 1.0 x10^3/uL (0.0-1.1) Eosinophils # (Auto) 0.2 x10^3/uL (0.0-0.7) Basophils # (Auto) 0.1 x10^3/uL (0.0-0.2) Sodium Level 140 mmol/L (136-145) Potassium Level 4.0 mmol/L (3.5-5.1) Chloride Level 103 mmol/L (98-107) Carbon Dioxide Level 28 mmol/L (21-32) Anion Gap 9 (6-14) Blood Urea Nitrogen 32 mg/dL (7-20) Creatinine 4.0 mg/dL (0.6-1.0) Estimated GFR (Cockcroft-Gault) 11.8 BUN/Creatinine Ratio 8 (6-20) Glucose Level 99 mg/dL (70-99) Calcium Level 8.6 mg/dL (8.5-10.1) Total Bilirubin 0.5 mg/dL (0.2-1.0) Aspartate Amino Transf (AST/SGOT) 19 U/L (15-37) Alanine Aminotransferase (ALT/SGPT) 12 U/L (14-59) Alkaline Phosphatase 86 U/L (46-116) Total Protein 5.1 g/dL (6.4-8.2) Albumin 2.2 g/dL (3.4-5.0) Albumin/Globulin Ratio 0.8 (1.0-1.7) Random Vancomycin Level 31.3 mcg/mL Laboratory Tests Test 02/05/18 16:07 02/05/18 20:50 02/06/18 05:50 02/06/18 07:14 Glucose (Fingerstick) 93 mg/dL (70-99) 98 mg/dL (70-99) 84 mg/dL (70-99) White Blood Count 17.5 x10^3/uL (4.0-11.0) Red Blood Count 2.53 x10^6/uL (3.50-5.40) Hemoglobin 7.7 g/dL (12.0-15.5) Hematocrit 23.6 % (36.0-47.0) Mean Corpuscular Volume 93 fL (79-100) Mean Corpuscular Hemoglobin 31 pg (25-35) Mean Corpuscular Hemoglobin Concent 33 g/dL (31-37) Red Cell Distribution Width 16.8 % (11.5-14.5) Platelet Count 331 x10^3/uL (140-400) Neutrophils (%) (Auto) 85 % (31-73) Lymphocytes (%) (Auto) 8 % (24-48) Monocytes (%) (Auto) 6 % (0-9) Eosinophils (%) (Auto) 1 % (0-3) Basophils (%) (Auto) 0 % (0-3) Neutrophils # (Auto) 14.8 x10^3uL (1.8-7.7) Lymphocytes # (Auto) 1.3 x10^3/uL (1.0-4.8) Monocytes # (Auto) 1.0 x10^3/uL (0.0-1.1) Eosinophils # (Auto) 0.2 x10^3/uL (0.0-0.7) Basophils # (Auto) 0.1 x10^3/uL (0.0-0.2) Sodium Level 140 mmol/L (136-145) Potassium Level 4.0 mmol/L (3.5-5.1) Chloride Level 103 mmol/L (98-107) Carbon Dioxide Level 28 mmol/L (21-32) Anion Gap 9 (6-14) Blood Urea Nitrogen 32 mg/dL (7-20) Creatinine 4.0 mg/dL (0.6-1.0) Estimated GFR (Cockcroft-Gault) 11.8 BUN/Creatinine Ratio 8 (6-20) Glucose Level 99 mg/dL (70-99) Calcium Level 8.6 mg/dL (8.5-10.1) Total Bilirubin 0.5 mg/dL (0.2-1.0) Aspartate Amino Transf (AST/SGOT) 19 U/L (15-37) Alanine Aminotransferase (ALT/SGPT) 12 U/L (14-59) Alkaline Phosphatase 86 U/L (46-116) Total Protein 5.1 g/dL (6.4-8.2) Albumin 2.2 g/dL (3.4-5.0) Albumin/Globulin Ratio 0.8 (1.0-1.7) Random Vancomycin Level 31.3 mcg/mL Microbiology 01/26/18 Blood Culture - Final, Complete NO GROWTH AFTER 5 DAYS 01/27/18 Anaerobic/Aerobic Culture - Final, Complete 01/27/18 Anaerobic Culture Result 1 (ROSALIND) - Final, Complete 01/27/18 Aerobic Culture - Final, Complete 01/27/18 Aerobic Culture Result 1 (ROSALIND) - Final, Complete 01/27/18 Antimicrobic Susceptibility - Final, Complete 01/27/18 Gram Stain - Final, Complete 01/27/18 Gram Stain Result 1 (ROSALIND) - Final, Complete 01/27/18 Gram Stain Result 2 (ROSALIND) - Final, Complete Medications Current Medications Hydromorphone HCl (Dilaudid) 2 mg 1X ONCE IV Last administered on 01/26/18at 22 :39; Start 01/26/18 at 22:00; Stop 01/26/18 at 22:01; Status DC Vancomycin HCl (Vanco Per Pharmacy) 1 each PRN DAILY PRN MC SEE COMMENTS Last administered on 01/31/18at 17:20; Start 01/26/18 at 22:45; Stop 02/01/18 at 11:41 ; Status DC Vancomycin HCl 1.75 gm/Sodium Chloride 500 ml @ 250 mls/hr 1X ONCE IV Last administered on 01/26/18at 23:53; Start 01/26/18 at 23:00; Stop 01/27/18 at 00:59 ; Status DC Ondansetron HCl (Zofran) 4 mg PRN Q8HRS PRN IV NAUSEA/VOMITING 1ST CHOICE; Start 01/26/18 at 23:15; Stop 01/27/18 at 23:14; Status DC Sodium Chloride 1,000 ml @ 75 mls/hr [id number] IV Last administered on at 00:39; Start 01/26/18 at 23:30; Stop 01/27/18 at 23:29; Status DC Pharmacy Consult (C.diff Med Screen By Rx) 1 each 1X ONCE MC ; Start 01/27/18 at 01:00; Stop 01/27/18 at 01:01; Status Cancel Influenza Virus Vaccine (Afluria Trivalent [id number] Syringe) 0.5 ml ONCE ONCE VAX IM Last administered on 01/27/18at 09:00; Start 01/27/18 at 09:00; Stop 01/27/18 at 09:01; Status DC Vancomycin HCl (Vancomycin Random Level) 1 each 1X ONCE MC Last administered on 01/28/18at 05:00; Start 01/28/18 at 05:00; Stop 01/28/18 at 05:01; Status DC Hydromorphone HCl (Dilaudid) 1 mg PRN Q3HRS PRN IV SEVERE PAIN Last administered on 02/06/18at 12:35; Start 01/27/18 at 03:30 Ondansetron HCl (Zofran) 4 mg PRN Q6HRS PRN IV NAUSEA/VOMITING; Start 01/27/18 at 10:45; Stop 01/27/18 at 18:00; Status DC Fentanyl Citrate (Fentanyl 2ml Vial) 25 mcg PRN Q5MIN PRN IV MILD PAIN; Start 01/27/18 at 10:45; Stop 01/27/18 at 18:00; Status DC Fentanyl Citrate (Fentanyl 2ml Vial) 50 mcg PRN Q5MIN PRN IV MODERATE TO SEVERE PAIN; Start 01/27/18 at 10:45; Stop 01/27/18 at 18:00; Status DC Morphine Sulfate (Morphine Sulfate) 1 mg PRN Q10MIN PRN IV SEVERE PAIN Last administered on 01/27/18at 16:28; Start 01/27/18 at 10:45; Stop 01/27/18 at 18:00 ; Status DC Ringer's Solution 1,000 ml @ 30 mls/hr Q24H IV Last administered on 01/27/18at 10:35; Start 01/27/18 at 10:35; Stop 01/27/18 at 19:36; Status DC Lidocaine HCl (Xylocaine-Mpf 1% 2ml Vial) 2 ml 1X PRN PRN ID IV START; Start 01/27/18 at 10:45; Stop 01/27/18 at 18:00; Status DC Hydromorphone HCl (Dilaudid) 0.5 mg PRN Q10MIN PRN IV SEV PAIN, Second choice Last administered on 01/27/18at 15:59; Start 01/27/18 at 10:45; Stop 01/27/18 at 18:00; Status DC Prochlorperazine Edisylate (Compazine) 5 mg PACU PRN PRN IV NAUSEA, MRX1; Start 01/27/18 at 10:45; Stop 01/27/18 at 18:00; Status DC Amiodarone HCl (Cordarone) 200 mg DAILY PO Last administered on 02/05/18 13: 34; Start 01/27/18 at 12:30 Aspirin (SputnikBot Aspirin) 325 mg DAILY PO Last administered on 01/28/18at 09:13; Start 01/27/18 at 12:30; Stop 01/28/18 at 14:26; Status DC Carbamazepine (TEGretol) 200 mg BID PO Last administered on 02/05/18at 20:56; Start 01/27/18 at 12:30 Carvedilol (Coreg) 12.5 mg BIDWMEALS PO Last administered on 02/05/18 17:00; Start 01/27/18 at 12:30 Vitamin B Complex/ Vitamin C (Melly-Shabbir) 1 tab DAILY PO Last administered on 13:33; Start 01/27/18 at 12:30 Furosemide (Lasix) 80 mg [id number] PO Last administered on 02/05/18 13:35; Start 01/27/18 at 12:30 Insulin Glargine (Lantus) 22 units QHS SQ Last administered on 02/04/18at 22:05 ; Start 01/27/18 at 21:00 Morphine Sulfate (Ms Contin) 15 mg BID PO Last administered on 02/05/18at 20:57 ; Start 01/27/18 at 12:30 Nitroglycerin (Nitrostat) 0.4 mg PRN Q5MIN PRN SL CHEST PAIN; Start 01/27/18 at 12:00 Nystatin (Nystop) 1 susanna PRN BID PRN TP SKIN BREAKDOWN; Start 01/27/18 at 12:00 Tramadol HCl (Ultram) 50 mg PRN Q4HRS PRN PO HEADACHE; Start 01/27/18 at 12:00 Non-Formulary Medication (Albuterol Sulfate (Proventil Hfa Inhaler)) 2 puff BID PRN IH FOR ASTHMA; Start 01/27/18 at 12:00; Status UNV Atorvastatin Calcium (Lipitor) 80 mg QHS PO Last administered on 02/05/18 20: 57; Start 01/27/18 at 21:00 Calcitriol (Rocaltrol) 0.25 mcg DAILY PO Last administered on 02/05/18at 13:33 ; Start 01/27/18 at 12:30 Diltiazem HCl (Cardizem 24hr Cd) 120 mg DAILY PO Last administered on at 13:36; Start 01/27/18 at 12:30 Erythromycin (E-Mycin) 250 mg BID PO Last administered on 02/05/18at 13:33; Start 01/27/18 at 21:00 Fenofibrate (Lofibra) 134 mg QHS PO Last administered on 02/05/18 20:57; Start 01/27/18 at 21:00 Non-Formulary Medication (Fluconazole (Diflucan)) 100 mg PRN PO ; Start at 12:00; Status UNV Lidocaine (Lidoderm) 1 patch PRN DAILY PRN TD PAIN; Start 01/27/18 at 09:00 Niacin (Slo-Niacin) 500 mg QHS PO Last administered on 02/05/18at 20:57; Start 01/27/18 at 21:00 Ondansetron HCl (Zofran Odt) 4 mg PRN Q6HRS PRN PO NAUSEA/VOMITING; Start 01/27 at 12:15 Miscellaneous (Lidoderm Patch Removal) 1 ea QHS MC Last administered on at 20:57; Start 01/27/18 at 21:00 Albuterol Sulfate (Ventolin Neb Soln) 2.5 mg PRN BID PRN NEB SHORTNESS OF BREATH Last administered on 01/27/18at 21:59; Start 01/27/18 at 12:30 Lidocaine HCl (Lidocaine 1% 50ml Vial) 50 ml 1X ONCE INJ Last administered on 01/27/18at 14:06; Start 01/27/18 at 12:45; Stop 01/27/18 at 12:46; Status DC Hydromorphone HCl (Dilaudid) 2 mg STK-MED ONCE .ROUTE ; Start 01/27/18 at 12:36 ; Stop 01/27/18 at 12:38; Status DC Propofol 20 ml @ As Directed STK-MED ONCE IV ; Start 01/27/18 at 12:38; Stop at 12:39; Status DC Bacitracin 22544 unit/Sodium Chloride 3,000 ml @ 0 mls/hr 1X ONCE IR ; Start 01/27/18 at 13:15; Stop 01/27/18 at 13:16; Status Cancel Dexamethasone Sodium Phosphate (Decadron) 20 mg STK-MED ONCE .ROUTE ; Start 01/27/18 at 13:11; Stop 01/27/18 at 13:12; Status DC Ondansetron HCl (Zofran) 4 mg STK-MED ONCE .ROUTE ; Start 01/27/18 at 13:11; Stop 01/27/18 at 13:12; Status DC Sevoflurane (Ultane) 30 ml STK-MED ONCE IH ; Start 01/27/18 at 13:11; Stop 01/27 at 13:12; Status DC Bacitracin (Bacitracin) 50,000 unit STK-MED ONCE IRR Last administered on at 13:58; Start 01/27/18 at 12:14; Stop 01/27/18 at 13:16; Status DC Clopidogrel Bisulfate (Plavix) 75 mg DAILYWBKFT PO Last administered on at 09:13; Start 01/28/18 at 08:00; Stop 01/28/18 at 14:28; Status DC Hydromorphone HCl (Dilaudid) 2 mg STK-MED ONCE .ROUTE ; Start 01/27/18 at 15:38 ; Stop 01/27/18 at 15:40; Status DC Gentamicin Sulfate 235 mg/ Dextrose 105.875 ml @ 105.875 mls/hr 1X ONCE IV Last administered on 01/27/18at 19:56; Start 01/27/18 at 16:00; Stop 01/27/18 at 16:59; Status DC Lactobacillus Rhamnosus (Culturelle) 1 cap BID PO Last administered on at 13:33; Start 01/27/18 at 21:00 Cefepime HCl 1 gm/ Dextrose 50 ml @ 100 mls/hr DAILY IV ; Start 01/29/18 at 09: 00; Status UNV Metronidazole 100 ml @ 100 mls/hr Q12HR IV Last administered on 02/02/18at 21: 00; Start 01/28/18 at 10:00; Stop 02/03/18 at 10:49; Status DC Cefepime HCl (Maxipime) 1 gm Q24H IVP Last administered on 02/03/18at 10:54; Start 01/28/18 at 10:00; Stop 02/04/18 at 12:02; Status DC Lidocaine HCl (Xylocaine-Mpf 2% Vial) 2 ml STK-MED ONCE .ROUTE ; Start 01/28/18 at 11:41; Stop 01/28/18 at 11:42; Status DC Sodium Chloride 1,000 ml @ 1,000 mls/hr Q1H PRN IV hypotension; Start 01/28/18 at 12:09; Stop 01/28/18 at 18:08; Status DC Info (PHARMACY MONITORING -- do not chart) 1 each PRN DAILY PRN MC SEE COMMENTS ; Start 01/28/18 at 12:15; Status UNV Info (PHARMACY MONITORING -- do not chart) 1 each PRN DAILY PRN MC SEE COMMENTS ; Start 01/28/18 at 12:15; Stop 01/31/18 at 09:10; Status DC Lidocaine HCl (Xylocaine-Mpf 2% Vial) 2 ml 1X ONCE INJ ; Start 01/28/18 at 12: 15; Stop 01/28/18 at 12:21; Status DC Ticagrelor (Brilinta) 90 mg BID PO Last administered on 02/05/18at 20:56; Start 01/28/18 at 21:00 Diphenhydramine HCl (Benadryl) 25 mg PRN Q6HRS PRN PO ITCHING; Start 01/28/18 at 14:15 Aspirin (Ecotrin) 81 mg DAILYWBKFT PO Last administered on 02/05/18at 13:35; Start 01/29/18 at 08:00 Insulin Human Lispro (HumaLOG) 0-5 UNITS TIDWMEALS SQ Last administered on 03/14at 08:47; Start 01/28/18 at 17:00 Dextrose (Dextrose 50%-Water Syringe) 12.5 gm PRN Q15MIN PRN IV SEE COMMENTS Last administered on 02/05/18at 08:50; Start 01/28/18 at 14:45 Hydralazine HCl (Apresoline) 10 mg PRN TID PRN PO hypertension; Start 01/28/18 at 14:45 Oxycodone/ Acetaminophen (Percocet 10/325) 1 tab PRN Q4HRS PRN PO pain SEVERE Last administered on 02/03/18at 10:48; Start 01/29/18 at 07:45 Promethazine HCl (Phenergan Supp) 12.5 mg 1X ONCE [place] ; Start 01/29/18 at 12:15 ; Stop 01/29/18 at 12:36; Status DC Promethazine HCl (Phenergan Im) 12.5 mg 1X ONCE IM ; Start 01/29/18 at 12:45; Stop 01/29/18 at 12:46; Status DC Lidocaine/ Epinephrine (LIDOCAINE 1%-EPI 1:100,000 Multi-Dose) 20 ml STK-MED ONCE .ROUTE ; Start 01/29/18 at 12:45; Stop 01/29/18 at 12:47; Status DC Heparin Sodium (Porcine) (Hep Lock Adult) 500 unit STK-MED ONCE IV ; Start 01/29 at 12:45; Stop 01/29/18 at 12:47; Status DC Morphine Sulfate (Morphine Sulfate) 10 mg STK-MED ONCE .ROUTE ; Start 01/29/18 at 13:23; Stop 01/29/18 at 13:25; Status DC Midazolam HCl (Versed) 2 mg STK-MED ONCE .ROUTE ; Start 01/29/18 at 13:23; Stop 01/29/18 at 13:25; Status DC Morphine Sulfate (Morphine Sulfate) 1 mg PRN Q10MIN PRN IV SEVERE PAIN Last administered on 02/01/18at 15:46; Start 02/01/18 at 07:00; Stop 02/02/18 at 06:59 ; Status DC Ringer's Solution 1,000 ml @ 30 mls/hr Q24H IV ; Start 02/01/18 at 07:00; Stop 02/01/18 at 18:59; Status DC Lidocaine HCl (Xylocaine-Mpf 1% 2ml Vial) 2 ml PRN 1X PRN ID PRIOR TO IV START ; Start 02/01/18 at 07:00; Stop 02/02/18 at 06:59; Status DC Hydromorphone HCl (Dilaudid) 0.5 mg PRN Q10MIN PRN IV SEV PAIN, Second choice Last administered on 02/01/18at 16:08; Start 02/01/18 at 07:00; Stop 02/02/18 at 06:59; Status DC Prochlorperazine Edisylate (Compazine) 5 mg PACU PRN PRN IV NAUSEA, MRX1; Start 02/01/18 at 07:00; Stop 02/02/18 at 06:59; Status DC Lidocaine/ Epinephrine (LIDOCAINE 1%-EPI 1:100,000 Multi-Dose) 8 ml 1X ONCE IJ Last administered on 01/29/18at 14:01; Start 01/29/18 at 14:00; Stop 01/29/18 at 14:17; Status DC Heparin Sodium (Porcine) (Hep Lock Adult) 500 unit 1X ONCE IV Last administered on 01/29/18at 14:04; Start 01/29/18 at 14:00; Stop 01/29/18 at 14:17 ; Status DC Morphine Sulfate (Morphine Sulfate) 5 mg 1X ONCE IV Last administered on at 14:01; Start 01/29/18 at 14:00; Stop 01/29/18 at 14:17; Status DC Ondansetron HCl (Zofran) 4 mg PRN Q6HRS PRN IV NAUSEA/VOMITING 1ST CHOICE Last administered on 02/02/18at 09:51; Start 01/29/18 at 14:45 Vancomycin HCl 500 mg/Sodium Chloride 100 ml @ 100 mls/hr 1X ONCE IV Last administered on 01/29/18at 21:04; Start 01/29/18 at 18:00; Stop 01/29/18 at 18:59 ; Status DC Sodium Chloride 1,000 ml @ 1,000 mls/hr Q1H PRN IV hypotension; Start 01/30/18 at 13:09; Stop 01/30/18 at 19:08; Status DC Sodium Chloride (Normal Saline Flush) 10 ml 1X PRN PRN IV AP catheter pack; Start 01/30/18 at 13:15; Stop 01/31/18 at 13:14; Status DC Sodium Chloride (Normal Saline Flush) 10 ml 1X PRN PRN IV [employer] catheter pack; Start 01/30/18 at 13:15; Stop 01/31/18 at 13:14; Status DC Sodium Chloride 1,000 ml @ 400 mls/hr Q2H30M PRN IV PATENCY; Start 01/30/18 at 13:09; Stop 01/31/18 at 01:08; Status DC Info (PHARMACY MONITORING -- do not chart) 1 each PRN DAILY PRN MC SEE COMMENTS ; Start 01/30/18 at 13:15; Stop 01/30/18 at 13:17; Status DC Info (PHARMACY MONITORING -- do not chart) 1 each PRN DAILY PRN MC SEE COMMENTS ; Start 01/30/18 at 13:15; Stop 02/04/18 at 07:27; Status DC Lidocaine HCl (Lidocaine 1% 50ml Vial) 50 ml 1X ONCE INJ ; Start 01/30/18 at 15 :45; Stop 01/30/18 at 15:46; Status DC Vancomycin HCl 500 mg/Sodium Chloride 100 ml @ 100 mls/hr ONCE ONCE IV Last administered on 01/30/18at 20:49; Start 01/30/18 at 18:00; Stop 01/30/18 at 18:59 ; Status DC Cefazolin Sodium 1 gm/Sodium Chloride 500 ml @ 500 mls/hr 1X ONCE IRR ; Start 02/01/18 at 06:00; Stop 02/01/18 at 06:59; Status DC Lidocaine HCl (Xylocaine-Mpf 2% Vial) 2 ml STK-MED ONCE .ROUTE ; Start 01/28/18 at 12:00; Stop 02/01/18 at 08:30; Status DC Darbepoetin Mauricio (Aranesp) 60 mcg [id number] SQ Last administered on 02/01/18at 21 :38; Start 02/01/18 at 21:00 Cellulose (Surgicel Fibrillar 1x2) 1 each STK-MED ONCE .ROUTE ; Start 02/01/18 at 12:05; Stop 02/01/18 at 13:06; Status DC Lidocaine HCl (Xylocaine 1% Pf 30ml Vial) 30 ml 1X ONCE INJ ; Start 02/01/18 at 13:15; Stop 02/01/18 at 13:18; Status DC Sodium Chloride 1,000 ml @ 75 mls/hr [id number] IV Last administered on at 00:15; Start 02/01/18 at 13:45; Stop 02/02/18 at 16:43; Status DC Morphine Sulfate (Morphine Sulfate) 10 mg STK-MED ONCE .ROUTE ; Start 02/01/18 at 14:24; Stop 02/01/18 at 14:25; Status DC Midazolam HCl (Versed) 2 mg STK-MED ONCE .ROUTE ; Start 02/01/18 at 14:24; Stop 02/01/18 at 14:25; Status DC Midazolam HCl (Versed) 2 mg STK-MED ONCE .ROUTE ; Start 02/01/18 at 14:25; Stop 02/01/18 at 14:26; Status DC Propofol 20 ml @ As Directed STK-MED ONCE IV ; Start 02/01/18 at 14:25; Stop at 14:26; Status DC Dexamethasone Sodium Phosphate (Decadron) 20 mg STK-MED ONCE .ROUTE ; Start 02/01/18 at 14:25; Stop 02/01/18 at 14:26; Status DC Ondansetron HCl (Zofran) 4 mg STK-MED ONCE .ROUTE ; Start 02/01/18 at 14:25; Stop 02/01/18 at 14:26; Status DC Bacitracin (Bacitracin) 50,000 unit STK-MED ONCE IRR Last administered on at 14:55; Start 02/01/18 at 13:32; Stop 02/01/18 at 14:32; Status DC Vancomycin HCl 500 mg/Sodium Chloride 100 ml @ 100 mls/hr QTUTHSA IV Last administered on 02/02/18at 16:15; Start 02/02/18 at 16:00; Stop 02/04/18 at 12: 02; Status DC Sodium Chloride 1,000 ml @ 1,000 mls/hr Q1H PRN IV hypotension; Start 02/02/18 at 09:39; Stop 02/02/18 at 15:38; Status DC Albumin Human 200 ml @ 200 mls/hr 1X PRN PRN IV Hypotension; Start 02/02/18 at 09:45; Stop 02/02/18 at 15:44; Status DC Sodium Chloride 1,000 ml @ 400 mls/hr Q2H30M PRN IV PATENCY; Start 02/02/18 at 09:39; Stop 02/02/18 at 21:38; Status DC Info (PHARMACY MONITORING -- do not chart) 1 each PRN DAILY PRN MC SEE COMMENTS ; Start 02/02/18 at 09:45; Stop 02/04/18 at 07:28; Status DC Info (PHARMACY MONITORING -- do not chart) 1 each PRN DAILY PRN MC SEE COMMENTS ; Start 02/02/18 at 09:45; Status UNV Prochlorperazine Edisylate (Compazine) 10 mg PRN Q6HRS PRN IV NAUSEA/VOMITING 2ND CHOICE Last administered on 02/02/18at 23:23; Start 02/02/18 at 11:30 Vancomycin HCl (Vanco Per Pharmacy) 1 each PRN DAILY PRN MC SEE COMMENTS Last administered on 02/02/18at 13:57; Start 02/02/18 at 14:00; Stop 02/04/18 at 12: 02; Status DC Famotidine (Pepcid Vial) 20 mg DAILY IVP Last administered on 02/04/18at 14:25 ; Start 02/03/18 at 10:00 Alteplase, Recombinant (Cathflo) 2 mg 1X ONCE INT CAT Last administered on 03/14at 02:56; Start 02/04/18 at 03:00; Stop 02/04/18 at 03:01; Status DC Sodium Chloride 1,000 ml @ 1,000 mls/hr Q1H PRN IV hypotension; Start at 07:15; Stop 02/04/18 at 13:14; Status DC Albumin Human 200 ml @ 200 mls/hr 1X PRN PRN IV Hypotension Last administered on 02/04/18at 11:26; Start 02/04/18 at 07:15; Stop 02/04/18 at 13:14; Status DC Acetaminophen (Tylenol) 500 mg 1X PRN PRN PO MILD PAIN / TEMP; Start 02/04/18 at 07:15; Stop 02/05/18 at 07:14; Status DC Diphenhydramine HCl (Benadryl) 25 mg 1X PRN PRN IV ITCHING; Start 02/04/18 at 07:15; Stop 02/05/18 at 07:14; Status DC Diphenhydramine HCl (Benadryl) 25 mg 1X PRN PRN IV ITCHING; Start 02/04/18 at 07:15; Stop 02/05/18 at 07:14; Status DC Sodium Chloride 1,000 ml @ 400 mls/hr Q2H30M PRN IV PATENCY; Start 02/04/18 at 07:15; Stop 02/04/18 at 19:14; Status DC Info (PHARMACY MONITORING -- do not chart) 1 each PRN DAILY PRN MC SEE COMMENTS ; Start 02/04/18 at 07:15 Lidocaine HCl (Xylocaine-Mpf 2% Vial) 2 ml STK-MED ONCE .ROUTE ; Start at 09:43; Stop 02/04/18 at 09:44; Status DC Docusate Sodium (Colace) 100 mg PRN DAILY PRN PO CONSTIPATION; Start 02/04/18 at 10:30 Ceftriaxone Sodium 2 gm/ Dextrose 100 ml @ 200 mls/hr Q24H IV Last administered on 02/04/18at 14:24; Start 02/04/18 at 13:00; Stop 02/05/18 at 11 :49; Status DC Morphine Sulfate (Morphine Sulfate) 1 mg PRN Q10MIN PRN IV SEVERE PAIN; Start 02/05/18 at 07:00; Stop 02/06/18 at 06:59; Status DC Ringer's Solution 1,000 ml @ 30 mls/hr Q24H IV ; Start 02/05/18 at 07:00; Stop 02/05/18 at 18:59; Status DC Lidocaine HCl (Xylocaine-Mpf 1% 2ml Vial) 2 ml PRN 1X PRN ID IV START; Start 02/05/18 at 07:00; Stop 02/06/18 at 06:59; Status DC Hydromorphone HCl (Dilaudid) 0.5 mg PRN Q10MIN PRN IV SEV PAIN, Second choice; Start 02/05/18 at 07:00; Stop 02/06/18 at 06:59; Status DC Prochlorperazine Edisylate (Compazine) 5 mg PACU PRN PRN IV NAUSEA, MRX1; Start 02/05/18 at 07:00; Stop 02/06/18 at 06:59; Status DC Lidocaine HCl (Xylocaine-Mpf 2% Vial) 2 ml STK-MED ONCE .ROUTE ; Start at 10:00; Stop 02/05/18 at 08:19; Status DC Sodium Chloride 1,000 ml @ 75 mls/hr [id number] IV Last administered on at 23:50; Start 02/05/18 at 10:30 Cefepime HCl 1 gm/ Dextrose 50 ml @ 100 mls/hr DAILY IV ; Start 02/06/18 at 09 :00; Status UNV Vancomycin HCl (Vanco Per Pharmacy) 1 each PRN DAILY PRN MC SEE COMMENTS Last administered on 02/05/18at 17:21; Start 02/05/18 at 12:00 Cefepime HCl (Maxipime) 1 gm Q24H IVP Last administered on 02/05/18at 13:37; Start 02/05/18 at 12:00 Propofol 20 ml @ As Directed STK-MED ONCE IV ; Start 02/05/18 at 12:08; Stop 02/05/18 at 12:09; Status DC Lidocaine HCl (Xylocaine-Mpf 2% Vial) 2 ml STK-MED ONCE .ROUTE ; Start at 12:08; Stop 02/05/18 at 12:09; Status DC Vancomycin HCl 1.5 gm/Sodium Chloride 500 ml @ 250 mls/hr 1X ONCE IV Last administered on 02/05/18at 14:05; Start 02/05/18 at 14:00; Stop 02/05/18 at 15 :59; Status DC Vancomycin HCl (Vancomycin Random Level) 1 each 1X ONCE MC Last administered on 02/06/18at 05:00; Start 02/06/18 at 05:00; Stop 02/06/18 at 05:01; Status DC Sodium Chloride 1,000 ml @ 1,000 mls/hr Q1H PRN IV hypotension; Start at 08:12; Stop 02/06/18 at 14:11; Status DC Sodium Chloride 1,000 ml @ 400 mls/hr Q2H30M PRN IV PATENCY; Start 02/06/18 at 08:12; Stop 02/06/18 at 20:11 Info (PHARMACY MONITORING -- do not chart) 1 each PRN DAILY PRN MC SEE COMMENTS ; Start 02/06/18 at 08:15; Status UNV Info (PHARMACY MONITORING -- do not chart) 1 each PRN DAILY PRN MC SEE COMMENTS ; Start 02/06/18 at 08:15; Status UNV Lidocaine HCl (Xylocaine-Mpf 1% 2ml Vial) 2 ml 1X ONCE ID Last administered on 02/06/18at 08:30; Start 02/06/18 at 08:30; Stop 02/06/18 at 08:31; Status DC Lidocaine HCl (Xylocaine-Mpf 2% Vial) 2 ml STK-MED ONCE .ROUTE ; Start at 08:32; Stop 02/06/18 at 08:33; Status DC Diphenhydramine HCl (Benadryl) 50 mg 1X ONCE IVP Last administered on at 09:10; Start 02/06/18 at 09:00; Stop 02/06/18 at 09:02; Status DC Active Scripts Active Percocet 10-325 Mg Tablet (Oxycodone/Acetaminophen) 1 Each Tablet 1 Tab PO Q4HRS Brilinta (Ticagrelor) 90 Mg Tablet 90 Mg PO BID 30 Days Morphine Sulfate Er (Morphine Sulfate) 15 Mg Tablet.er 15 Mg PO BID Reported Brilinta (Ticagrelor) 90 Mg Tablet 90 Mg PO BID Lidocaine 1 Each Adh..patch 1 Each TP PRN DAILY PRN Calcitriol 0.25 Mcg Capsule 1 Cap PO DAILY Tegretol (Carbamazepine) 200 Mg Tablet 1 Tab PO BID Tramadol Hcl 50 Mg Tablet 50 Mg PO Q4HRS PRN Lantus Solostar (Insulin Glargine,Hum.rec.anlog) 100 Unit/1 Ml Insuln.pen 22 Unit SQ QHS Diflucan (Fluconazole) 100 Mg Tablet 100 Mg PO PRN Carvedilol 3.125 Mg Tablet 12.5 Mg PO BID Erythromycin (Erythromycin Base) 250 Mg Capsule.dr 250 Mg PO BID Cardizem Cd (Diltiazem Hcl) 180 Mg Cap.er.24h 120 Mg PO DAILY Amiodarone Hcl 200 Mg Tablet 1 Tab PO DAILY Nystatin 15 Gm Powder 1 Susanna TP PRN BID PRN Proventil Hfa Inhaler (Albuterol Sulfate) 6.7 Gm Hfa.aer.ad 2 Puff IH BID PRN Zofran (Ondansetron Hcl) 4 Mg Tablet 4 Mg PO Q6-8HRS PRN Nephro-Shabbir Tablet (Folic Acid/Vitamin B Comp W-C) 0.8 Mg Tablet 1 Tab PO DAILY Tricor (Fenofibrate Nanocrystallized) 145 Mg Tablet 1 Tab PO HS Lipitor (Atorvastatin Calcium) 80 Mg Tablet 80 Mg PO HS Niacin 500 Mg Tablet 500 Mg PO HS Novolog (Insulin Aspart) 100 Unit/1 Ml Cartridge 0 SQ TIDAC sliding scale Aspirin 325 Mg Tablet 325 Mg PO DAILY Furosemide 80 Mg Tablet 80 Mg PO BID Docusate Sodium 100 Mg Capsule 1 Cap PO PRN PRN Nitrostat (Nitroglycerin) 0.4 Mg Tab.subl 0.4 Mg SL PRN Q5MIN PRN Take as needed for chest pain Vitals/I & O Vital Sign - Last 24 Hours 02/05/18 02/05/18 02/05/18 02/05/18 14:46 15:00 17:00 17:42 Temp 98.9 98.9 Pulse 83 83 Resp 18 B/P (MAP) 134/57 (82) 134/57 Pulse Ox 98 94 94 O2 Delivery Room Air O2 Flow Rate 2.0 2.0 02/05/18 02/05/18 02/05/18 02/05/18 19:00 20:00 20:57 21:10 Temp 99.9 99.9 Pulse 81 Resp 18 B/P (MAP) 130/57 (81) Pulse Ox 92 O2 Delivery Room Air Room Air Room Air Room Air 02/05/18 02/05/18 02/06/18 02/06/18 21:56 23:00 02:43 03:00 Temp 99.3 98.9 99.3 98.9 Pulse 81 76 Resp 18 18 B/P (MAP) 140/54 (82) 133/76 (95) Pulse Ox 96 97 O2 Delivery Room Air Room Air Room Air Room Air 02/06/18 02/06/18 02/06/18 07:00 07:51 12:35 Temp 98.9 98.9 Pulse 76 Resp 18 18 B/P (MAP) 133/76 (95) Pulse Ox 97 O2 Delivery Room Air Room Air Room Air Intake and Output 02/05/18 02/05/18 02/06/18 15:00 23:00 07:00 Intake Total 615 ml 440 ml 200 ml Output Total 0 ml Balance 615 ml 440 ml 200 ml BRITNEY ORONA MD Feb 06, 2018 14:22
[2018-02-06 15:16] VITALS: BP 135/53
[2018-02-06] MEDS: VANCOMYCIN PER PHARMACY MC PRN (15:16)
--- NOTE | 2018-02-06 15:45 | PDOC ---
PROGRESS NOTES Assessment Problems Medical Problems: (1) Chronic renal failure Status: Acute Retinopathy. Cataracts. No bilateral occipital stroke. [place] Plan Outpatient ophthalmology evaluation when medically stable. Subjective no longer has eye pain Objective Vital Signs Date Time Temp Pulse Resp B/P (MAP) Pulse Ox O2 Delivery O2 Flow Rate FiO2 02/06/18 15:16 98.6 80 18 135/53 (80) 94 Room Air 98.6 02/05/18 17:42 2.0 Intake and Output 02/06/18 07:00 Intake Total 1255 ml Output Total 0 ml Balance 1255 ml Intake Oral 940 ml Blood Product IV Normal Saline Flush 315 ml Output Urine Total 0 ml PHYSICAL EXAM Alert. Oriented to time, place and person. PERRL. EOMI. CN: visual acuity 20/800 with a near card, bilaterally, otherwise no focal findings. Muscle tone: normal. Muscle strength: 4/5 DTR: 0+ Plantar reflex: no foot on left, right plantar response silent Gait: not examined in bed. Sensory exam: stocking loss in right leg No cerebellar signs elicited. Review of Relevant I have reviewed the following items bert (where applicable) has been applied. Labs Laboratory Tests Test 02/04/18 17:06 02/04/18 21:20 02/05/18 04:35 02/05/18 07:49 Glucose (Fingerstick) 131 mg/dL (70-99) 113 mg/dL (70-99) 63 mg/dL (70-99) White Blood Count 17.1 x10^3/uL (4.0-11.0) Red Blood Count 1.99 x10^6/uL (3.50-5.40) Hemoglobin 6.4 g/dL (12.0-15.5) Hematocrit 19.0 % (36.0-47.0) Mean Corpuscular Volume 94 fL (79-100) Mean Corpuscular Hemoglobin 32 pg (25-35) Mean Corpuscular Hemoglobin Concent 34 g/dL (31-37) Red Cell Distribution Width 16.7 % (11.5-14.5) Platelet Count 287 x10^3/uL (140-400) Neutrophils (%) (Auto) 84 % (31-73) Lymphocytes (%) (Auto) 8 % (24-48) Monocytes (%) (Auto) 6 % (0-9) Eosinophils (%) (Auto) 1 % (0-3) Basophils (%) (Auto) 1 % (0-3) Neutrophils # (Auto) 14.3 x10^3uL (1.8-7.7) Lymphocytes # (Auto) 1.4 x10^3/uL (1.0-4.8) Monocytes # (Auto) 1.0 x10^3/uL (0.0-1.1) Eosinophils # (Auto) 0.2 x10^3/uL (0.0-0.7) Basophils # (Auto) 0.1 x10^3/uL (0.0-0.2) Sodium Level 140 mmol/L (136-145) Potassium Level 3.9 mmol/L (3.5-5.1) Chloride Level 102 mmol/L (98-107) Carbon Dioxide Level 30 mmol/L (21-32) Anion Gap 8 (6-14) Blood Urea Nitrogen 26 mg/dL (7-20) Creatinine 3.1 mg/dL (0.6-1.0) Estimated GFR (Cockcroft-Gault) 15.8 BUN/Creatinine Ratio 8 (6-20) Glucose Level 79 mg/dL (70-99) Calcium Level 8.5 mg/dL (8.5-10.1) Total Bilirubin 0.4 mg/dL (0.2-1.0) Aspartate Amino Transf (AST/SGOT) 16 U/L (15-37) Alanine Aminotransferase (ALT/SGPT) 11 U/L (14-59) Alkaline Phosphatase 89 U/L (46-116) Total Protein 5.2 g/dL (6.4-8.2) Albumin 2.4 g/dL (3.4-5.0) Albumin/Globulin Ratio 0.9 (1.0-1.7) Test 02/05/18 16:07 02/05/18 20:50 02/06/18 05:50 02/06/18 07:14 Glucose (Fingerstick) 93 mg/dL (70-99) 98 mg/dL (70-99) 84 mg/dL (70-99) White Blood Count 17.5 x10^3/uL (4.0-11.0) Red Blood Count 2.53 x10^6/uL (3.50-5.40) Hemoglobin 7.7 g/dL (12.0-15.5) Hematocrit 23.6 % (36.0-47.0) Mean Corpuscular Volume 93 fL (79-100) Mean Corpuscular Hemoglobin 31 pg (25-35) Mean Corpuscular Hemoglobin Concent 33 g/dL (31-37) Red Cell Distribution Width 16.8 % (11.5-14.5) Platelet Count 331 x10^3/uL (140-400) Neutrophils (%) (Auto) 85 % (31-73) Lymphocytes (%) (Auto) 8 % (24-48) Monocytes (%) (Auto) 6 % (0-9) Eosinophils (%) (Auto) 1 % (0-3) Basophils (%) (Auto) 0 % (0-3) Neutrophils # (Auto) 14.8 x10^3uL (1.8-7.7) Lymphocytes # (Auto) 1.3 x10^3/uL (1.0-4.8) Monocytes # (Auto) 1.0 x10^3/uL (0.0-1.1) Eosinophils # (Auto) 0.2 x10^3/uL (0.0-0.7) Basophils # (Auto) 0.1 x10^3/uL (0.0-0.2) Sodium Level 140 mmol/L (136-145) Potassium Level 4.0 mmol/L (3.5-5.1) Chloride Level 103 mmol/L (98-107) Carbon Dioxide Level 28 mmol/L (21-32) Anion Gap 9 (6-14) Blood Urea Nitrogen 32 mg/dL (7-20) Creatinine 4.0 mg/dL (0.6-1.0) Estimated GFR (Cockcroft-Gault) 11.8 BUN/Creatinine Ratio 8 (6-20) Glucose Level 99 mg/dL (70-99) Calcium Level 8.6 mg/dL (8.5-10.1) Total Bilirubin 0.5 mg/dL (0.2-1.0) Aspartate Amino Transf (AST/SGOT) 19 U/L (15-37) Alanine Aminotransferase (ALT/SGPT) 12 U/L (14-59) Alkaline Phosphatase 86 U/L (46-116) Total Protein 5.1 g/dL (6.4-8.2) Albumin 2.2 g/dL (3.4-5.0) Albumin/Globulin Ratio 0.8 (1.0-1.7) Random Vancomycin Level 31.3 mcg/mL Laboratory Tests Test 02/05/18 16:07 02/05/18 20:50 02/06/18 05:50 02/06/18 07:14 Glucose (Fingerstick) 93 mg/dL (70-99) 98 mg/dL (70-99) 84 mg/dL (70-99) White Blood Count 17.5 x10^3/uL (4.0-11.0) Red Blood Count 2.53 x10^6/uL (3.50-5.40) Hemoglobin 7.7 g/dL (12.0-15.5) Hematocrit 23.6 % (36.0-47.0) Mean Corpuscular Volume 93 fL (79-100) Mean Corpuscular Hemoglobin 31 pg (25-35) Mean Corpuscular Hemoglobin Concent 33 g/dL (31-37) Red Cell Distribution Width 16.8 % (11.5-14.5) Platelet Count 331 x10^3/uL (140-400) Neutrophils (%) (Auto) 85 % (31-73) Lymphocytes (%) (Auto) 8 % (24-48) Monocytes (%) (Auto) 6 % (0-9) Eosinophils (%) (Auto) 1 % (0-3) Basophils (%) (Auto) 0 % (0-3) Neutrophils # (Auto) 14.8 x10^3uL (1.8-7.7) Lymphocytes # (Auto) 1.3 x10^3/uL (1.0-4.8) Monocytes # (Auto) 1.0 x10^3/uL (0.0-1.1) Eosinophils # (Auto) 0.2 x10^3/uL (0.0-0.7) Basophils # (Auto) 0.1 x10^3/uL (0.0-0.2) Sodium Level 140 mmol/L (136-145) Potassium Level 4.0 mmol/L (3.5-5.1) Chloride Level 103 mmol/L (98-107) Carbon Dioxide Level 28 mmol/L (21-32) Anion Gap 9 (6-14) Blood Urea Nitrogen 32 mg/dL (7-20) Creatinine 4.0 mg/dL (0.6-1.0) Estimated GFR (Cockcroft-Gault) 11.8 BUN/Creatinine Ratio 8 (6-20) Glucose Level 99 mg/dL (70-99) Calcium Level 8.6 mg/dL (8.5-10.1) Total Bilirubin 0.5 mg/dL (0.2-1.0) Aspartate Amino Transf (AST/SGOT) 19 U/L (15-37) Alanine Aminotransferase (ALT/SGPT) 12 U/L (14-59) Alkaline Phosphatase 86 U/L (46-116) Total Protein 5.1 g/dL (6.4-8.2) Albumin 2.2 g/dL (3.4-5.0) Albumin/Globulin Ratio 0.8 (1.0-1.7) Random Vancomycin Level 31.3 mcg/mL Microbiology 01/26/18 Blood Culture - Final, Complete NO GROWTH AFTER 5 DAYS 01/27/18 Anaerobic/Aerobic Culture - Final, Complete 01/27/18 Anaerobic Culture Result 1 (ROSALIND) - Final, Complete 01/27/18 Aerobic Culture - Final, Complete 01/27/18 Aerobic Culture Result 1 (ROSALIND) - Final, Complete 01/27/18 Antimicrobic Susceptibility - Final, Complete 01/27/18 Gram Stain - Final, Complete 01/27/18 Gram Stain Result 1 (ROSALIND) - Final, Complete 01/27/18 Gram Stain Result 2 (ROSALIND) - Final, Complete Medications Current Medications Hydromorphone HCl (Dilaudid) 2 mg 1X ONCE IV Last administered on 01/26/18at 22 :39; Start 01/26/18 at 22:00; Stop 01/26/18 at 22:01; Status DC Vancomycin HCl (Vanco Per Pharmacy) 1 each PRN DAILY PRN MC SEE COMMENTS Last administered on 01/31/18at 17:20; Start 01/26/18 at 22:45; Stop 02/01/18 at 11:41 ; Status DC Vancomycin HCl 1.75 gm/Sodium Chloride 500 ml @ 250 mls/hr 1X ONCE IV Last administered on 01/26/18at 23:53; Start 01/26/18 at 23:00; Stop 01/27/18 at 00:59 ; Status DC Ondansetron HCl (Zofran) 4 mg PRN Q8HRS PRN IV NAUSEA/VOMITING 1ST CHOICE; Start 01/26/18 at 23:15; Stop 01/27/18 at 23:14; Status DC Sodium Chloride 1,000 ml @ 75 mls/hr [id number] IV Last administered on at 00:39; Start 01/26/18 at 23:30; Stop 01/27/18 at 23:29; Status DC Pharmacy Consult (C.diff Med Screen By Rx) 1 each 1X ONCE MC ; Start 01/27/18 at 01:00; Stop 01/27/18 at 01:01; Status Cancel Influenza Virus Vaccine (Afluria Trivalent [id number] Syringe) 0.5 ml ONCE ONCE VAX IM Last administered on 01/27/18at 09:00; Start 01/27/18 at 09:00; Stop 01/27/18 at 09:01; Status DC Vancomycin HCl (Vancomycin Random Level) 1 each 1X ONCE MC Last administered on 01/28/18at 05:00; Start 01/28/18 at 05:00; Stop 01/28/18 at 05:01; Status DC Hydromorphone HCl (Dilaudid) 1 mg PRN Q3HRS PRN IV SEVERE PAIN Last administered on 02/06/18at 12:35; Start 01/27/18 at 03:30 Ondansetron HCl (Zofran) 4 mg PRN Q6HRS PRN IV NAUSEA/VOMITING; Start 01/27/18 at 10:45; Stop 01/27/18 at 18:00; Status DC Fentanyl Citrate (Fentanyl 2ml Vial) 25 mcg PRN Q5MIN PRN IV MILD PAIN; Start 01/27/18 at 10:45; Stop 01/27/18 at 18:00; Status DC Fentanyl Citrate (Fentanyl 2ml Vial) 50 mcg PRN Q5MIN PRN IV MODERATE TO SEVERE PAIN; Start 01/27/18 at 10:45; Stop 01/27/18 at 18:00; Status DC Morphine Sulfate (Morphine Sulfate) 1 mg PRN Q10MIN PRN IV SEVERE PAIN Last administered on 01/27/18at 16:28; Start 01/27/18 at 10:45; Stop 01/27/18 at 18:00 ; Status DC Ringer's Solution 1,000 ml @ 30 mls/hr Q24H IV Last administered on 01/27/18at 10:35; Start 01/27/18 at 10:35; Stop 01/27/18 at 19:36; Status DC Lidocaine HCl (Xylocaine-Mpf 1% 2ml Vial) 2 ml 1X PRN PRN ID IV START; Start 01/27/18 at 10:45; Stop 01/27/18 at 18:00; Status DC Hydromorphone HCl (Dilaudid) 0.5 mg PRN Q10MIN PRN IV SEV PAIN, Second choice Last administered on 01/27/18at 15:59; Start 01/27/18 at 10:45; Stop 01/27/18 at 18:00; Status DC Prochlorperazine Edisylate (Compazine) 5 mg PACU PRN PRN IV NAUSEA, MRX1; Start 01/27/18 at 10:45; Stop 01/27/18 at 18:00; Status DC Amiodarone HCl (Cordarone) 200 mg DAILY PO Last administered on 02/05/18at 13: 34; Start 01/27/18 at 12:30 Aspirin (Anthony Aspirin) 325 mg DAILY PO Last administered on 01/28/18at 09:13; Start 01/27/18 at 12:30; Stop 01/28/18 at 14:26; Status DC Carbamazepine (TEGretol) 200 mg BID PO Last administered on 02/05/18at 20:56; Start 01/27/18 at 12:30 Carvedilol (Coreg) 12.5 mg BIDWMEALS PO Last administered on 02/05/18at 17:00; Start 01/27/18 at 12:30 Vitamin B Complex/ Vitamin C (Melly-Shabbir) 1 tab DAILY PO Last administered on at 13:33; Start 01/27/18 at 12:30 Furosemide (Lasix) 80 mg [id number] PO Last administered on 02/05/18at 13:35; Start 01/27/18 at 12:30 Insulin Glargine (Lantus) 22 units QHS SQ Last administered on 02/04/18at 22:05 ; Start 01/27/18 at 21:00 Morphine Sulfate (Ms Contin) 15 mg BID PO Last administered on 02/05/18 20:57 ; Start 01/27/18 at 12:30 Nitroglycerin (Nitrostat) 0.4 mg PRN Q5MIN PRN SL CHEST PAIN; Start 01/27/18 at 12:00 Nystatin (Nystop) 1 susanna PRN BID PRN TP SKIN BREAKDOWN; Start 01/27/18 at 12:00 Tramadol HCl (Ultram) 50 mg PRN Q4HRS PRN PO HEADACHE; Start 01/27/18 at 12:00 Non-Formulary Medication (Albuterol Sulfate (Proventil Hfa Inhaler)) 2 puff BID PRN IH FOR ASTHMA; Start 01/27/18 at 12:00; Status UNV Atorvastatin Calcium (Lipitor) 80 mg QHS PO Last administered on 02/05/18 20: 57; Start 01/27/18 at 21:00 Calcitriol (Rocaltrol) 0.25 mcg DAILY PO Last administered on 02/05/18at 13:33 ; Start 01/27/18 at 12:30 Diltiazem HCl (Cardizem 24hr Cd) 120 mg DAILY PO Last administered on at 13:36; Start 01/27/18 at 12:30 Erythromycin (E-Mycin) 250 mg BID PO Last administered on 02/05/18 13:33; Start 01/27/18 at 21:00 Fenofibrate (Lofibra) 134 mg QHS PO Last administered on 02/05/18 20:57; Start 01/27/18 at 21:00 Non-Formulary Medication (Fluconazole (Diflucan)) 100 mg PRN PO ; Start at 12:00; Status UNV Lidocaine (Lidoderm) 1 patch PRN DAILY PRN TD PAIN; Start 01/27/18 at 09:00 Niacin (Slo-Niacin) 500 mg QHS PO Last administered on 02/05/18at 20:57; Start 01/27/18 at 21:00 Ondansetron HCl (Zofran Odt) 4 mg PRN Q6HRS PRN PO NAUSEA/VOMITING; Start 01/27 at 12:15 Miscellaneous (Lidoderm Patch Removal) 1 ea QHS MC Last administered on 20:57; Start 01/27/18 at 21:00 Albuterol Sulfate (Ventolin Neb Soln) 2.5 mg PRN BID PRN NEB SHORTNESS OF BREATH Last administered on 01/27/18at 21:59; Start 01/27/18 at 12:30 Lidocaine HCl (Lidocaine 1% 50ml Vial) 50 ml 1X ONCE INJ Last administered on 01/27/18at 14:06; Start 01/27/18 at 12:45; Stop 01/27/18 at 12:46; Status DC Hydromorphone HCl (Dilaudid) 2 mg STK-MED ONCE .ROUTE ; Start 01/27/18 at 12:36 ; Stop 01/27/18 at 12:38; Status DC Propofol 20 ml @ As Directed STK-MED ONCE IV ; Start 01/27/18 at 12:38; Stop at 12:39; Status DC Bacitracin 26546 unit/Sodium Chloride 3,000 ml @ 0 mls/hr 1X ONCE IR ; Start 01/27/18 at 13:15; Stop 01/27/18 at 13:16; Status Cancel Dexamethasone Sodium Phosphate (Decadron) 20 mg STK-MED ONCE .ROUTE ; Start 01/27/18 at 13:11; Stop 01/27/18 at 13:12; Status DC Ondansetron HCl (Zofran) 4 mg STK-MED ONCE .ROUTE ; Start 01/27/18 at 13:11; Stop 01/27/18 at 13:12; Status DC Sevoflurane (Ultane) 30 ml STK-MED ONCE IH ; Start 01/27/18 at 13:11; Stop 01/27 at 13:12; Status DC Bacitracin (Bacitracin) 50,000 unit STK-MED ONCE IRR Last administered on at 13:58; Start 01/27/18 at 12:14; Stop 01/27/18 at 13:16; Status DC Clopidogrel Bisulfate (Plavix) 75 mg DAILYWBKFT PO Last administered on at 09:13; Start 01/28/18 at 08:00; Stop 01/28/18 at 14:28; Status DC Hydromorphone HCl (Dilaudid) 2 mg STK-MED ONCE .ROUTE ; Start 01/27/18 at 15:38 ; Stop 01/27/18 at 15:40; Status DC Gentamicin Sulfate 235 mg/ Dextrose 105.875 ml @ 105.875 mls/hr 1X ONCE IV Last administered on 01/27/18at 19:56; Start 01/27/18 at 16:00; Stop 01/27/18 at 16:59; Status DC Lactobacillus Rhamnosus (Culturelle) 1 cap BID PO Last administered on at 13:33; Start 01/27/18 at 21:00 Cefepime HCl 1 gm/ Dextrose 50 ml @ 100 mls/hr DAILY IV ; Start 01/29/18 at 09: 00; Status UNV Metronidazole 100 ml @ 100 mls/hr Q12HR IV Last administered on 02/02/18at 21: 00; Start 01/28/18 at 10:00; Stop 02/03/18 at 10:49; Status DC Cefepime HCl (Maxipime) 1 gm Q24H IVP Last administered on 02/03/18at 10:54; Start 01/28/18 at 10:00; Stop 02/04/18 at 12:02; Status DC Lidocaine HCl (Xylocaine-Mpf 2% Vial) 2 ml STK-MED ONCE .ROUTE ; Start 01/28/18 at 11:41; Stop 01/28/18 at 11:42; Status DC Sodium Chloride 1,000 ml @ 1,000 mls/hr Q1H PRN IV hypotension; Start 01/28/18 at 12:09; Stop 01/28/18 at 18:08; Status DC Info (PHARMACY MONITORING -- do not chart) 1 each PRN DAILY PRN MC SEE COMMENTS ; Start 01/28/18 at 12:15; Status UNV Info (PHARMACY MONITORING -- do not chart) 1 each PRN DAILY PRN MC SEE COMMENTS ; Start 01/28/18 at 12:15; Stop 01/31/18 at 09:10; Status DC Lidocaine HCl (Xylocaine-Mpf 2% Vial) 2 ml 1X ONCE INJ ; Start 01/28/18 at 12: 15; Stop 01/28/18 at 12:21; Status DC Ticagrelor (Brilinta) 90 mg BID PO Last administered on 02/05/18at 20:56; Start 01/28/18 at 21:00 Diphenhydramine HCl (Benadryl) 25 mg PRN Q6HRS PRN PO ITCHING; Start 01/28/18 at 14:15 Aspirin (Ecotrin) 81 mg DAILYWBKFT PO Last administered on 02/05/18at 13:35; Start 01/29/18 at 08:00 Insulin Human Lispro (HumaLOG) 0-5 UNITS TIDWMEALS SQ Last administered on 03/14at 08:47; Start 01/28/18 at 17:00 Dextrose (Dextrose 50%-Water Syringe) 12.5 gm PRN Q15MIN PRN IV SEE COMMENTS Last administered on 02/05/18at 08:50; Start 01/28/18 at 14:45 Hydralazine HCl (Apresoline) 10 mg PRN TID PRN PO hypertension; Start 01/28/18 at 14:45 Oxycodone/ Acetaminophen (Percocet 10/325) 1 tab PRN Q4HRS PRN PO pain SEVERE Last administered on 02/03/18at 10:48; Start 01/29/18 at 07:45 Promethazine HCl (Phenergan Supp) 12.5 mg 1X ONCE [place] ; Start 01/29/18 at 12:15 ; Stop 01/29/18 at 12:36; Status DC Promethazine HCl (Phenergan Im) 12.5 mg 1X ONCE IM ; Start 01/29/18 at 12:45; Stop 01/29/18 at 12:46; Status DC Lidocaine/ Epinephrine (LIDOCAINE 1%-EPI 1:100,000 Multi-Dose) 20 ml STK-MED ONCE .ROUTE ; Start 01/29/18 at 12:45; Stop 01/29/18 at 12:47; Status DC Heparin Sodium (Porcine) (Hep Lock Adult) 500 unit STK-MED ONCE IV ; Start 01/29 at 12:45; Stop 01/29/18 at 12:47; Status DC Morphine Sulfate (Morphine Sulfate) 10 mg STK-MED ONCE .ROUTE ; Start 01/29/18 at 13:23; Stop 01/29/18 at 13:25; Status DC Midazolam HCl (Versed) 2 mg STK-MED ONCE .ROUTE ; Start 01/29/18 at 13:23; Stop 01/29/18 at 13:25; Status DC Morphine Sulfate (Morphine Sulfate) 1 mg PRN Q10MIN PRN IV SEVERE PAIN Last administered on 02/01/18at 15:46; Start 02/01/18 at 07:00; Stop 02/02/18 at 06:59 ; Status DC Ringer's Solution 1,000 ml @ 30 mls/hr Q24H IV ; Start 02/01/18 at 07:00; Stop 02/01/18 at 18:59; Status DC Lidocaine HCl (Xylocaine-Mpf 1% 2ml Vial) 2 ml PRN 1X PRN ID PRIOR TO IV START ; Start 02/01/18 at 07:00; Stop 02/02/18 at 06:59; Status DC Hydromorphone HCl (Dilaudid) 0.5 mg PRN Q10MIN PRN IV SEV PAIN, Second choice Last administered on 02/01/18at 16:08; Start 02/01/18 at 07:00; Stop 02/02/18 at 06:59; Status DC Prochlorperazine Edisylate (Compazine) 5 mg PACU PRN PRN IV NAUSEA, MRX1; Start 02/01/18 at 07:00; Stop 02/02/18 at 06:59; Status DC Lidocaine/ Epinephrine (LIDOCAINE 1%-EPI 1:100,000 Multi-Dose) 8 ml 1X ONCE IJ Last administered on 01/29/18at 14:01; Start 01/29/18 at 14:00; Stop 01/29/18 at 14:17; Status DC Heparin Sodium (Porcine) (Hep Lock Adult) 500 unit 1X ONCE IV Last administered on 01/29/18at 14:04; Start 01/29/18 at 14:00; Stop 01/29/18 at 14:17 ; Status DC Morphine Sulfate (Morphine Sulfate) 5 mg 1X ONCE IV Last administered on at 14:01; Start 01/29/18 at 14:00; Stop 01/29/18 at 14:17; Status DC Ondansetron HCl (Zofran) 4 mg PRN Q6HRS PRN IV NAUSEA/VOMITING 1ST CHOICE Last administered on 02/02/18at 09:51; Start 01/29/18 at 14:45 Vancomycin HCl 500 mg/Sodium Chloride 100 ml @ 100 mls/hr 1X ONCE IV Last administered on 01/29/18at 21:04; Start 01/29/18 at 18:00; Stop 01/29/18 at 18:59 ; Status DC Sodium Chloride 1,000 ml @ 1,000 mls/hr Q1H PRN IV hypotension; Start 01/30/18 at 13:09; Stop 01/30/18 at 19:08; Status DC Sodium Chloride (Normal Saline Flush) 10 ml 1X PRN PRN IV AP catheter pack; Start 01/30/18 at 13:15; Stop 01/31/18 at 13:14; Status DC Sodium Chloride (Normal Saline Flush) 10 ml 1X PRN PRN IV ALLERGIST/PEDIATRIC PULMONOLOGIST catheter pack; Start 01/30/18 at 13:15; Stop 01/31/18 at 13:14; Status DC Sodium Chloride 1,000 ml @ 400 mls/hr Q2H30M PRN IV PATENCY; Start 01/30/18 at 13:09; Stop 01/31/18 at 01:08; Status DC Info (PHARMACY MONITORING -- do not chart) 1 each PRN DAILY PRN MC SEE COMMENTS ; Start 01/30/18 at 13:15; Stop 01/30/18 at 13:17; Status DC Info (PHARMACY MONITORING -- do not chart) 1 each PRN DAILY PRN MC SEE COMMENTS ; Start 01/30/18 at 13:15; Stop 02/04/18 at 07:27; Status DC Lidocaine HCl (Lidocaine 1% 50ml Vial) 50 ml 1X ONCE INJ ; Start 01/30/18 at 15 :45; Stop 01/30/18 at 15:46; Status DC Vancomycin HCl 500 mg/Sodium Chloride 100 ml @ 100 mls/hr ONCE ONCE IV Last administered on 01/30/18at 20:49; Start 01/30/18 at 18:00; Stop 01/30/18 at 18:59 ; Status DC Cefazolin Sodium 1 gm/Sodium Chloride 500 ml @ 500 mls/hr 1X ONCE IRR ; Start 02/01/18 at 06:00; Stop 02/01/18 at 06:59; Status DC Lidocaine HCl (Xylocaine-Mpf 2% Vial) 2 ml STK-MED ONCE .ROUTE ; Start 01/28/18 at 12:00; Stop 02/01/18 at 08:30; Status DC Darbepoetin Mauricio (Aranesp) 60 mcg [id number] SQ Last administered on 02/01/18at 21 :38; Start 02/01/18 at 21:00 Cellulose (Surgicel Fibrillar 1x2) 1 each STK-MED ONCE .ROUTE ; Start 02/01/18 at 12:05; Stop 02/01/18 at 13:06; Status DC Lidocaine HCl (Xylocaine 1% Pf 30ml Vial) 30 ml 1X ONCE INJ ; Start 02/01/18 at 13:15; Stop 02/01/18 at 13:18; Status DC Sodium Chloride 1,000 ml @ 75 mls/hr [id number] IV Last administered on at 00:15; Start 02/01/18 at 13:45; Stop 02/02/18 at 16:43; Status DC Morphine Sulfate (Morphine Sulfate) 10 mg STK-MED ONCE .ROUTE ; Start 02/01/18 at 14:24; Stop 02/01/18 at 14:25; Status DC Midazolam HCl (Versed) 2 mg STK-MED ONCE .ROUTE ; Start 02/01/18 at 14:24; Stop 02/01/18 at 14:25; Status DC Midazolam HCl (Versed) 2 mg STK-MED ONCE .ROUTE ; Start 02/01/18 at 14:25; Stop 02/01/18 at 14:26; Status DC Propofol 20 ml @ As Directed STK-MED ONCE IV ; Start 02/01/18 at 14:25; Stop at 14:26; Status DC Dexamethasone Sodium Phosphate (Decadron) 20 mg STK-MED ONCE .ROUTE ; Start 02/01/18 at 14:25; Stop 02/01/18 at 14:26; Status DC Ondansetron HCl (Zofran) 4 mg STK-MED ONCE .ROUTE ; Start 02/01/18 at 14:25; Stop 02/01/18 at 14:26; Status DC Bacitracin (Bacitracin) 50,000 unit STK-MED ONCE IRR Last administered on at 14:55; Start 02/01/18 at 13:32; Stop 02/01/18 at 14:32; Status DC Vancomycin HCl 500 mg/Sodium Chloride 100 ml @ 100 mls/hr QTUTHSA IV Last administered on 02/02/18at 16:15; Start 02/02/18 at 16:00; Stop 02/04/18 at 12: 02; Status DC Sodium Chloride 1,000 ml @ 1,000 mls/hr Q1H PRN IV hypotension; Start 02/02/18 at 09:39; Stop 02/02/18 at 15:38; Status DC Albumin Human 200 ml @ 200 mls/hr 1X PRN PRN IV Hypotension; Start 02/02/18 at 09:45; Stop 02/02/18 at 15:44; Status DC Sodium Chloride 1,000 ml @ 400 mls/hr Q2H30M PRN IV PATENCY; Start 02/02/18 at 09:39; Stop 02/02/18 at 21:38; Status DC Info (PHARMACY MONITORING -- do not chart) 1 each PRN DAILY PRN MC SEE COMMENTS ; Start 02/02/18 at 09:45; Stop 02/04/18 at 07:28; Status DC Info (PHARMACY MONITORING -- do not chart) 1 each PRN DAILY PRN MC SEE COMMENTS ; Start 02/02/18 at 09:45; Status UNV Prochlorperazine Edisylate (Compazine) 10 mg PRN Q6HRS PRN IV NAUSEA/VOMITING 2ND CHOICE Last administered on 02/02/18at 23:23; Start 02/02/18 at 11:30 Vancomycin HCl (Vanco Per Pharmacy) 1 each PRN DAILY PRN MC SEE COMMENTS Last administered on 02/02/18at 13:57; Start 02/02/18 at 14:00; Stop 02/04/18 at 12: 02; Status DC Famotidine (Pepcid Vial) 20 mg DAILY IVP Last administered on 02/04/18at 14:25 ; Start 02/03/18 at 10:00 Alteplase, Recombinant (Cathflo) 2 mg 1X ONCE INT CAT Last administered on 03/14at 02:56; Start 02/04/18 at 03:00; Stop 02/04/18 at 03:01; Status DC Sodium Chloride 1,000 ml @ 1,000 mls/hr Q1H PRN IV hypotension; Start at 07:15; Stop 02/04/18 at 13:14; Status DC Albumin Human 200 ml @ 200 mls/hr 1X PRN PRN IV Hypotension Last administered on 02/04/18at 11:26; Start 02/04/18 at 07:15; Stop 02/04/18 at 13:14; Status DC Acetaminophen (Tylenol) 500 mg 1X PRN PRN PO MILD PAIN / TEMP; Start 02/04/18 at 07:15; Stop 02/05/18 at 07:14; Status DC Diphenhydramine HCl (Benadryl) 25 mg 1X PRN PRN IV ITCHING; Start 02/04/18 at 07:15; Stop 02/05/18 at 07:14; Status DC Diphenhydramine HCl (Benadryl) 25 mg 1X PRN PRN IV ITCHING; Start 02/04/18 at 07:15; Stop 02/05/18 at 07:14; Status DC Sodium Chloride 1,000 ml @ 400 mls/hr Q2H30M PRN IV PATENCY; Start 02/04/18 at 07:15; Stop 02/04/18 at 19:14; Status DC Info (PHARMACY MONITORING -- do not chart) 1 each PRN DAILY PRN MC SEE COMMENTS ; Start 02/04/18 at 07:15 Lidocaine HCl (Xylocaine-Mpf 2% Vial) 2 ml STK-MED ONCE .ROUTE ; Start at 09:43; Stop 02/04/18 at 09:44; Status DC Docusate Sodium (Colace) 100 mg PRN DAILY PRN PO CONSTIPATION; Start 02/04/18 at 10:30 Ceftriaxone Sodium 2 gm/ Dextrose 100 ml @ 200 mls/hr Q24H IV Last administered on 02/04/18at 14:24; Start 02/04/18 at 13:00; Stop 02/05/18 at 11 :49; Status DC Morphine Sulfate (Morphine Sulfate) 1 mg PRN Q10MIN PRN IV SEVERE PAIN; Start 02/05/18 at 07:00; Stop 02/06/18 at 06:59; Status DC Ringer's Solution 1,000 ml @ 30 mls/hr Q24H IV ; Start 02/05/18 at 07:00; Stop 02/05/18 at 18:59; Status DC Lidocaine HCl (Xylocaine-Mpf 1% 2ml Vial) 2 ml PRN 1X PRN ID IV START; Start 02/05/18 at 07:00; Stop 02/06/18 at 06:59; Status DC Hydromorphone HCl (Dilaudid) 0.5 mg PRN Q10MIN PRN IV SEV PAIN, Second choice; Start 02/05/18 at 07:00; Stop 02/06/18 at 06:59; Status DC Prochlorperazine Edisylate (Compazine) 5 mg PACU PRN PRN IV NAUSEA, MRX1; Start 02/05/18 at 07:00; Stop 02/06/18 at 06:59; Status DC Lidocaine HCl (Xylocaine-Mpf 2% Vial) 2 ml STK-MED ONCE .ROUTE ; Start at 10:00; Stop 02/05/18 at 08:19; Status DC Sodium Chloride 1,000 ml @ 75 mls/hr [id number] IV Last administered on at 23:50; Start 02/05/18 at 10:30 Cefepime HCl 1 gm/ Dextrose 50 ml @ 100 mls/hr DAILY IV ; Start 02/06/18 at 09 :00; Status UNV Vancomycin HCl (Vanco Per Pharmacy) 1 each PRN DAILY PRN MC SEE COMMENTS Last administered on 02/06/18at 15:16; Start 02/05/18 at 12:00 Cefepime HCl (Maxipime) 1 gm Q24H IVP Last administered on 02/05/18at 13:37; Start 02/05/18 at 12:00 Propofol 20 ml @ As Directed STK-MED ONCE IV ; Start 02/05/18 at 12:08; Stop 02/05/18 at 12:09; Status DC Lidocaine HCl (Xylocaine-Mpf 2% Vial) 2 ml STK-MED ONCE .ROUTE ; Start at 12:08; Stop 02/05/18 at 12:09; Status DC Vancomycin HCl 1.5 gm/Sodium Chloride 500 ml @ 250 mls/hr 1X ONCE IV Last administered on 02/05/18at 14:05; Start 02/05/18 at 14:00; Stop 02/05/18 at 15 :59; Status DC Vancomycin HCl (Vancomycin Random Level) 1 each 1X ONCE MC Last administered on 02/06/18at 05:00; Start 02/06/18 at 05:00; Stop 02/06/18 at 05:01; Status DC Sodium Chloride 1,000 ml @ 1,000 mls/hr Q1H PRN IV hypotension; Start at 08:12; Stop 02/06/18 at 14:11; Status DC Sodium Chloride 1,000 ml @ 400 mls/hr Q2H30M PRN IV PATENCY; Start 02/06/18 at 08:12; Stop 02/06/18 at 20:11 Info (PHARMACY MONITORING -- do not chart) 1 each PRN DAILY PRN MC SEE COMMENTS ; Start 02/06/18 at 08:15; Status UNV Info (PHARMACY MONITORING -- do not chart) 1 each PRN DAILY PRN MC SEE COMMENTS ; Start 02/06/18 at 08:15; Status UNV Lidocaine HCl (Xylocaine-Mpf 1% 2ml Vial) 2 ml 1X ONCE ID Last administered on 02/06/18at 08:30; Start 02/06/18 at 08:30; Stop 02/06/18 at 08:31; Status DC Lidocaine HCl (Xylocaine-Mpf 2% Vial) 2 ml STK-MED ONCE .ROUTE ; Start at 08:32; Stop 02/06/18 at 08:33; Status DC Diphenhydramine HCl (Benadryl) 50 mg 1X ONCE IVP Last administered on at 09:10; Start 02/06/18 at 09:00; Stop 02/06/18 at 09:02; Status DC Vancomycin HCl (Vancomycin Random Level) 1 each 1X ONCE MC ; Start 02/08/18 at 05:00; Stop 02/08/18 at 05:01 Active Scripts Active Percocet 10-325 Mg Tablet (Oxycodone/Acetaminophen) 1 Each Tablet 1 Tab PO Q4HRS Brilinta (Ticagrelor) 90 Mg Tablet 90 Mg PO BID 30 Days Morphine Sulfate Er (Morphine Sulfate) 15 Mg Tablet.er 15 Mg PO BID Reported Brilinta (Ticagrelor) 90 Mg Tablet 90 Mg PO BID Lidocaine 1 Each Adh..patch 1 Each TP PRN DAILY PRN Calcitriol 0.25 Mcg Capsule 1 Cap PO DAILY Tegretol (Carbamazepine) 200 Mg Tablet 1 Tab PO BID Tramadol Hcl 50 Mg Tablet 50 Mg PO Q4HRS PRN Lantus Solostar (Insulin Glargine,Hum.rec.anlog) 100 Unit/1 Ml Insuln.pen 22 Unit SQ QHS Diflucan (Fluconazole) 100 Mg Tablet 100 Mg PO PRN Carvedilol 3.125 Mg Tablet 12.5 Mg PO BID Erythromycin (Erythromycin Base) 250 Mg Capsule.dr 250 Mg PO BID Cardizem Cd (Diltiazem Hcl) 180 Mg Cap.er.24h 120 Mg PO DAILY Amiodarone Hcl 200 Mg Tablet 1 Tab PO DAILY Nystatin 15 Gm Powder 1 Susanna TP PRN BID PRN Proventil Hfa Inhaler (Albuterol Sulfate) 6.7 Gm Hfa.aer.ad 2 Puff IH BID PRN Zofran (Ondansetron Hcl) 4 Mg Tablet 4 Mg PO Q6-8HRS PRN Nephro-Shabbir Tablet (Folic Acid/Vitamin B Comp W-C) 0.8 Mg Tablet 1 Tab PO DAILY Tricor (Fenofibrate Nanocrystallized) 145 Mg Tablet 1 Tab PO HS Lipitor (Atorvastatin Calcium) 80 Mg Tablet 80 Mg PO HS Niacin 500 Mg Tablet 500 Mg PO HS Novolog (Insulin Aspart) 100 Unit/1 Ml Cartridge 0 SQ TIDAC sliding scale Aspirin 325 Mg Tablet 325 Mg PO DAILY Furosemide 80 Mg Tablet 80 Mg PO BID Docusate Sodium 100 Mg Capsule 1 Cap PO PRN PRN Nitrostat (Nitroglycerin) 0.4 Mg Tab.subl 0.4 Mg SL PRN Q5MIN PRN Take as needed for chest pain Vitals/I & O Vital Sign - Last 24 Hours 02/05/18 02/05/18 02/05/18 02/05/18 17:00 17:42 19:00 20:00 Temp 99.9 99.9 Pulse 83 81 Resp 18 B/P (MAP) 134/57 130/57 (81) Pulse Ox 94 92 O2 Delivery Room Air Room Air O2 Flow Rate 2.0 02/05/18 02/05/18 02/05/18 02/05/18 20:57 21:10 21:56 23:00 Temp 99.3 99.3 Pulse 81 Resp 18 B/P (MAP) 140/54 (82) Pulse Ox 96 O2 Delivery Room Air Room Air Room Air Room Air 02/06/18 02/06/18 02/06/18 02/06/18 02:43 03:00 07:00 07:51 Temp 98.9 98.9 98.9 98.9 Pulse 76 76 Resp 18 18 B/P (MAP) 133/76 (95) 133/76 (95) Pulse Ox 97 97 O2 Delivery Room Air Room Air Room Air Room Air 02/06/18 02/06/18 12:35 15:16 Temp 98.6 98.6 Pulse 80 Resp 18 18 B/P (MAP) 135/53 (80) Pulse Ox 94 O2 Delivery Room Air Room Air Intake and Output 02/05/18 02/05/18 02/06/18 15:00 23:00 07:00 Intake Total 615 ml 440 ml 200 ml Output Total 0 ml Balance 615 ml 440 ml 200 ml ADAM HAGEN MD Feb 06, 2018 15:45
[2018-02-06] MEDS: ASPIRIN ENTERIC COATED 81 MG TABLET.DR. PO SCH (16:20)
[2018-02-06] MEDS: FAMOTIDINE 20 MG/2 ML VIAL IVP SCH (16:23)
[2018-02-06] MEDS: LACTOBACILLUS RHAMNOSUS GG 1 CAPSULE. PO SCH ×2 (16:24→22:11)
[2018-02-06] MEDS: FOLIC/VIT B COMP W-C (RENAL) TABLET. PO SCH (16:25)
[2018-02-06] MEDS: MORPHINE ER 15 MG TABLET.ER PO SCH ×2 (16:25→22:11)
[2018-02-06] MEDS: CALCITRIOL 0.25 MCG CAPSULE. PO SCH (16:25)
[2018-02-06] MEDS: carBAMazepine 200 MG TABLET PO SCH ×2 (16:26→22:11)
[2018-02-06] MEDS: ERYTHROMYCIN BASE 250 MG TABLET PO SCH ×2 (16:26→22:10)
[2018-02-06] MEDS: TICAGRELOR 90 MG TABLET. PO SCH ×2 (16:27→22:10)
[2018-02-06] MEDS: DOCUSATE SODIUM 100 MG CAPSULE. PO PRN (16:27)
[2018-02-06] MEDS: AMIODARONE HCL 200 MG TABLET. PO SCH (16:28)
[2018-02-06] MEDS: CEFEPIME HCL IV Push 1 GM VIAL. IVP SCH (16:49)
[2018-02-06 19:00] VITALS: BP 132/51
[2018-02-06] MEDS: PATCH REMOVAL. MC SCH (21:00)
[2018-02-06] MEDS: ATORVASTATIN CALCIUM 40 MG TABLET. PO SCH (22:10)
[2018-02-06] MEDS: NIACIN ER 500 MG TABLET.ER PO SCH (22:10)
[2018-02-06] MEDS: FENOFIBRATE,MICRONIZED 134 MG CAPSULE PO SCH (22:11)
[2018-02-06] MEDS: INSULIN GLARGINE 300 UNITS/3 ML INSULN.PEN. SQ SCH (22:21)
[2018-02-06 22:52] VITALS: BP 146/58
[2018-02-07] MEDS: IV NORMAL SALINE 1000ML BAG 1,000 ML IV SCH ×2 (02:30→15:24)
[2018-02-07 03:00] VITALS: BP 99/46
[2018-02-07] MEDS: HYDROmorphone 2 MG/ML VIAL IV PRN ×5 (06:21→20:49)
[2018-02-07 06:56] LABS: BASO # 0.1 x10^3/uL (0.0-0.2); BASO % 1 % (0-3); EOS # 0.1 x10^3/uL (0.0-0.7); EOS % 1 % (0-3); HEMATOCRIT 24.5 % (36.0-47.0); HEMOGLOBIN 8.2 g/dL (12.0-15.5); LYMPH # 1.4 x10^3/uL (1.0-4.8); LYMPH % 9 % (24-48); MEAN CORPUSCULAR HEMOGLOBIN 32 pg (25-35); MEAN CORPUSCULAR HGB CONC 33 g/dL (31-37); MEAN CORPUSCULAR VOLUME 95 fL (79-100); MONO # 1.4 x10^3/uL (0.0-1.1); MONO % 9 % (0-9); NEUT # 12.8 x10^3uL (1.8-7.7); NEUT % 81 % (31-73); PLATELET COUNT 347 x10^3/uL (140-400); RED BLOOD COUNT 2.59 x10^6/uL (3.50-5.40); RED CELL DISTRIBUTION WIDTH 16.8 % (11.5-14.5); WHITE BLOOD COUNT 15.8 x10^3/uL (4.0-11.0)
[2018-02-07 07:11] LABS: ALBUMIN 2.1 g/dL (3.4-5.0); ALBUMIN/GLOBULIN RATIO 0.7 (1.0-1.7); CALCIUM 8.4 mg/dL (8.5-10.1); CREATININE 3.4 mg/dL (0.6-1.0); GFR 14.2; POTASSIUM 3.9 mmol/L (3.5-5.1); TOTAL BILIRUBIN 0.4 mg/dL (0.2-1.0); TOTAL PROTEIN 5.3 g/dL (6.4-8.2)
[2018-02-07 07:59] VITALS: BP 120/51
[2018-02-07] MEDS: CARVEDILOL 12.5 MG TABLET. PO SCH ×2 (08:00→16:21)
[2018-02-07] MEDS: ASPIRIN ENTERIC COATED 81 MG TABLET.DR. PO SCH (08:00)
[2018-02-07] MEDS: FUROSEMIDE 80 MG TABLET. PO SCH ×2 (08:59→14:33)
[2018-02-07] MEDS: carBAMazepine 200 MG TABLET PO SCH ×2 (08:59→21:10)
[2018-02-07] MEDS: CALCITRIOL 0.25 MCG CAPSULE. PO SCH (08:59)
[2018-02-07] MEDS: FOLIC/VIT B COMP W-C (RENAL) TABLET. PO SCH (08:59)
[2018-02-07] MEDS: TICAGRELOR 90 MG TABLET. PO SCH ×2 (08:59→21:10)
[2018-02-07] MEDS: MORPHINE ER 15 MG TABLET.ER PO SCH ×2 (08:59→21:10)
[2018-02-07] MEDS: AMIODARONE HCL 200 MG TABLET. PO SCH (09:01)
[2018-02-07] MEDS: FAMOTIDINE 20 MG/2 ML VIAL IVP SCH (09:01)
[2018-02-07] MEDS: LACTOBACILLUS RHAMNOSUS GG 1 CAPSULE. PO SCH ×2 (09:01→21:10)
[2018-02-07] MEDS: ERYTHROMYCIN BASE 250 MG TABLET PO SCH ×2 (09:01→21:10)
[2018-02-07] MEDS: INSULIN LISPRO 300 UNITS/3 ML INSULN.PEN. SQ SCH ×3 (09:07→17:00)
--- NOTE | 2018-02-07 10:26 | PDOC ---
Infectious Disease Note Subjective Subjective No fever last 24 hours c/o N/V Right groin pain-stable ROS ROS per HPI otherwise neg Vital Sign Vital Signs Vital Signs Date Time Temp Pulse Resp B/P (MAP) Pulse Ox O2 Delivery O2 Flow Rate FiO2 02/07/18 10:12 98 Room Air 2.0 02/07/18 09:01 52 99/46 02/07/18 07:59 97.9 17 97.9 Physical Exam PHYSICAL EXAM GENERAL: Propped up in bed, alert LUNGS: Clear. HEART: S1, S2 regular. ABDOMEN: Soft, NT EXTREMITIES: Left BKA. RLE less swollen and red; + wrinkles. Incision well-approx w/ laberto. Wound vac in place NEUROLOGIC: Alert and responds appropriately SKIN: without rash Tunnelled RIJ (01/29) clean Labs Lab Laboratory Tests Test 02/06/18 16:06 02/06/18 20:28 02/07/18 06:30 02/07/18 07:18 Glucose (Fingerstick) 119 mg/dL (70-99) 160 mg/dL (70-99) 187 mg/dL (70-99) White Blood Count 15.8 x10^3/uL (4.0-11.0) Red Blood Count 2.59 x10^6/uL (3.50-5.40) Hemoglobin 8.2 g/dL (12.0-15.5) Hematocrit 24.5 % (36.0-47.0) Mean Corpuscular Volume 95 fL (79-100) Mean Corpuscular Hemoglobin 32 pg (25-35) Mean Corpuscular Hemoglobin Concent 33 g/dL (31-37) Red Cell Distribution Width 16.8 % (11.5-14.5) Platelet Count 347 x10^3/uL (140-400) Neutrophils (%) (Auto) 81 % (31-73) Lymphocytes (%) (Auto) 9 % (24-48) Monocytes (%) (Auto) 9 % (0-9) Eosinophils (%) (Auto) 1 % (0-3) Basophils (%) (Auto) 1 % (0-3) Neutrophils # (Auto) 12.8 x10^3uL (1.8-7.7) Lymphocytes # (Auto) 1.4 x10^3/uL (1.0-4.8) Monocytes # (Auto) 1.4 x10^3/uL (0.0-1.1) Eosinophils # (Auto) 0.1 x10^3/uL (0.0-0.7) Basophils # (Auto) 0.1 x10^3/uL (0.0-0.2) Sodium Level 139 mmol/L (136-145) Potassium Level 3.9 mmol/L (3.5-5.1) Chloride Level 103 mmol/L (98-107) Carbon Dioxide Level 28 mmol/L (21-32) Anion Gap 8 (6-14) Blood Urea Nitrogen 18 mg/dL (7-20) Creatinine 3.4 mg/dL (0.6-1.0) Estimated GFR (Cockcroft-Gault) 14.2 BUN/Creatinine Ratio 5 (6-20) Glucose Level 209 mg/dL (70-99) Calcium Level 8.4 mg/dL (8.5-10.1) Total Bilirubin 0.4 mg/dL (0.2-1.0) Aspartate Amino Transf (AST/SGOT) 16 U/L (15-37) Alanine Aminotransferase (ALT/SGPT) 12 U/L (14-59) Alkaline Phosphatase 128 U/L (46-116) Total Protein 5.3 g/dL (6.4-8.2) Albumin 2.1 g/dL (3.4-5.0) Albumin/Globulin Ratio 0.7 (1.0-1.7) Micro 01/26/18 Blood Culture - Preliminary, Resulted NO GROWTH AFTER 4 DAYS 01/27 ANAEROBIC RES 1 Preliminary No anaerobes recovered in 24 hours. AEROBIC RES 1 Final Klebsiella pneumoniae 02/05 BC pending Objective Assessment Fever - better Right leg surgery site infection s/p excisional debridement; muscle flap & wound VAC placement on 01/27. Klebsiella (R amp) - s/p repeat I and D on 02/01 - 01/26. gram stain: GPC and GNR -- mixed chinedu. Leucocytosis ? reactive from GI bleed, PAD s/p leg bypass on 01/06 ESRD Multiple antibiotic allergies Amiodarone therapy h/o VRE, MRSA, c. diff Nausea and vomiting s/p EGD 02/05. non-erosive gastritis Anemia s/p PRBC Plan Plan of Care vanc and cefepime restarted 02/05 -Previously on Rocephin and Flagyl -s/p gent x 1 on 01/27 Trough 31.3 Probiotics BC from 02/05 NGTD Local wound care Supportive care LT[facility] soon D/w RN Attending Co-Sign The patient was seen and interviewed as well as examined at the bedside. The chart was reviewed. The case was discussed. Agree with the plan of care. KYLEIGH QUEEN APRN Feb 07, 2018 10:25 DANDY LÓPEZ MD Feb 07, 2018 14:23
[2018-02-07 11:50] VITALS: BP 127/53
[2018-02-07] MEDS: CEFEPIME HCL IV Push 1 GM VIAL. IVP SCH (12:30)
[2018-02-07] MEDS: VANCOMYCIN PER PHARMACY MC PRN (13:36)
--- NOTE | 2018-02-07 13:49 | PDOC ---
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 History of Present Illness History of Present Illness Pt seen and examined Dw RN Sitting up right Improved demeanor Vitals Vitals Vital Signs Date Time Temp Pulse Resp B/P (MAP) Pulse Ox O2 Delivery O2 Flow Rate FiO2 02/07/18 13:23 100 Room Air 2.0 02/07/18 11:50 98.4 77 18 127/53 (77) 98.4 Physical Exam Physical Exam GENERAL: Propped up in bed, alert LUNGS: Clear. HEART: S1, S2 regular. ABDOMEN: Soft, NT EXTREMITIES: Left BKA. RLE less swollen and red; + wrinkles. Incision well-approx w/ alberto. Wound vac in place NEUROLOGIC: Alert and responds appropriately SKIN: without rash Tunnelled RIJ (01/29) clean General: Alert, Oriented X3, Cooperative, No acute distress Heart: Regular rate, Normal S1, Normal S2, No murmurs, Gallops Lungs: Wheezing Abdomen: Normal bowel sounds, Soft, No tenderness, No hepatosplenomegaly, No masses Extremities: No clubbing, No cyanosis, No edema, Normal pulses, No tenderness/ swelling Skin: No breakdown, Other (dehiscence of the proximal right common femoral incision and vein harvest site with lower extremity edema and mild cellulitis) Labs LABS Laboratory Tests Test 02/06/18 16:06 02/06/18 20:28 02/07/18 06:30 02/07/18 07:18 Glucose (Fingerstick) 119 mg/dL (70-99) 160 mg/dL (70-99) 187 mg/dL (70-99) White Blood Count 15.8 x10^3/uL (4.0-11.0) Red Blood Count 2.59 x10^6/uL (3.50-5.40) Hemoglobin 8.2 g/dL (12.0-15.5) Hematocrit 24.5 % (36.0-47.0) Mean Corpuscular Volume 95 fL (79-100) Mean Corpuscular Hemoglobin 32 pg (25-35) Mean Corpuscular Hemoglobin Concent 33 g/dL (31-37) Red Cell Distribution Width 16.8 % (11.5-14.5) Platelet Count 347 x10^3/uL (140-400) Neutrophils (%) (Auto) 81 % (31-73) Lymphocytes (%) (Auto) 9 % (24-48) Monocytes (%) (Auto) 9 % (0-9) Eosinophils (%) (Auto) 1 % (0-3) Basophils (%) (Auto) 1 % (0-3) Neutrophils # (Auto) 12.8 x10^3uL (1.8-7.7) Lymphocytes # (Auto) 1.4 x10^3/uL (1.0-4.8) Monocytes # (Auto) 1.4 x10^3/uL (0.0-1.1) Eosinophils # (Auto) 0.1 x10^3/uL (0.0-0.7) Basophils # (Auto) 0.1 x10^3/uL (0.0-0.2) Sodium Level 139 mmol/L (136-145) Potassium Level 3.9 mmol/L (3.5-5.1) Chloride Level 103 mmol/L (98-107) Carbon Dioxide Level 28 mmol/L (21-32) Anion Gap 8 (6-14) Blood Urea Nitrogen 18 mg/dL (7-20) Creatinine 3.4 mg/dL (0.6-1.0) Estimated GFR (Cockcroft-Gault) 14.2 BUN/Creatinine Ratio 5 (6-20) Glucose Level 209 mg/dL (70-99) Calcium Level 8.4 mg/dL (8.5-10.1) Total Bilirubin 0.4 mg/dL (0.2-1.0) Aspartate Amino Transf (AST/SGOT) 16 U/L (15-37) Alanine Aminotransferase (ALT/SGPT) 12 U/L (14-59) Alkaline Phosphatase 128 U/L (46-116) Total Protein 5.3 g/dL (6.4-8.2) Albumin 2.1 g/dL (3.4-5.0) Albumin/Globulin Ratio 0.7 (1.0-1.7) Test 02/07/18 11:31 Glucose (Fingerstick) 108 mg/dL (70-99) Review of Systems Review of Systems Sore right leg Improved swelling Nausea Assessment and Plan Assessmemt and Plan Assessment: Recent fempop Right groin wound infection Sepsis from Right LE cellulitis ESRD on PD and HD Left BKA Left retinal optic disc drusen Plan: Dialysis Home Meds Labs IV Abx PT/OT Probable discharge to LTAC this week Comment Review of Relevant I have reviewed the following items bert (where applicable) has been applied. Labs Laboratory Tests Test 02/05/18 16:07 02/05/18 20:50 02/06/18 05:50 02/06/18 07:14 Glucose (Fingerstick) 93 mg/dL (70-99) 98 mg/dL (70-99) 84 mg/dL (70-99) White Blood Count 17.5 x10^3/uL (4.0-11.0) Red Blood Count 2.53 x10^6/uL (3.50-5.40) Hemoglobin 7.7 g/dL (12.0-15.5) Hematocrit 23.6 % (36.0-47.0) Mean Corpuscular Volume 93 fL (79-100) Mean Corpuscular Hemoglobin 31 pg (25-35) Mean Corpuscular Hemoglobin Concent 33 g/dL (31-37) Red Cell Distribution Width 16.8 % (11.5-14.5) Platelet Count 331 x10^3/uL (140-400) Neutrophils (%) (Auto) 85 % (31-73) Lymphocytes (%) (Auto) 8 % (24-48) Monocytes (%) (Auto) 6 % (0-9) Eosinophils (%) (Auto) 1 % (0-3) Basophils (%) (Auto) 0 % (0-3) Neutrophils # (Auto) 14.8 x10^3uL (1.8-7.7) Lymphocytes # (Auto) 1.3 x10^3/uL (1.0-4.8) Monocytes # (Auto) 1.0 x10^3/uL (0.0-1.1) Eosinophils # (Auto) 0.2 x10^3/uL (0.0-0.7) Basophils # (Auto) 0.1 x10^3/uL (0.0-0.2) Sodium Level 140 mmol/L (136-145) Potassium Level 4.0 mmol/L (3.5-5.1) Chloride Level 103 mmol/L (98-107) Carbon Dioxide Level 28 mmol/L (21-32) Anion Gap 9 (6-14) Blood Urea Nitrogen 32 mg/dL (7-20) Creatinine 4.0 mg/dL (0.6-1.0) Estimated GFR (Cockcroft-Gault) 11.8 BUN/Creatinine Ratio 8 (6-20) Glucose Level 99 mg/dL (70-99) Calcium Level 8.6 mg/dL (8.5-10.1) Total Bilirubin 0.5 mg/dL (0.2-1.0) Aspartate Amino Transf (AST/SGOT) 19 U/L (15-37) Alanine Aminotransferase (ALT/SGPT) 12 U/L (14-59) Alkaline Phosphatase 86 U/L (46-116) Total Protein 5.1 g/dL (6.4-8.2) Albumin 2.2 g/dL (3.4-5.0) Albumin/Globulin Ratio 0.8 (1.0-1.7) Random Vancomycin Level 31.3 mcg/mL Test 02/06/18 16:06 02/06/18 20:28 02/07/18 06:30 02/07/18 07:18 Glucose (Fingerstick) 119 mg/dL (70-99) 160 mg/dL (70-99) 187 mg/dL (70-99) White Blood Count 15.8 x10^3/uL (4.0-11.0) Red Blood Count 2.59 x10^6/uL (3.50-5.40) Hemoglobin 8.2 g/dL (12.0-15.5) Hematocrit 24.5 % (36.0-47.0) Mean Corpuscular Volume 95 fL (79-100) Mean Corpuscular Hemoglobin 32 pg (25-35) Mean Corpuscular Hemoglobin Concent 33 g/dL (31-37) Red Cell Distribution Width 16.8 % (11.5-14.5) Platelet Count 347 x10^3/uL (140-400) Neutrophils (%) (Auto) 81 % (31-73) Lymphocytes (%) (Auto) 9 % (24-48) Monocytes (%) (Auto) 9 % (0-9) Eosinophils (%) (Auto) 1 % (0-3) Basophils (%) (Auto) 1 % (0-3) Neutrophils # (Auto) 12.8 x10^3uL (1.8-7.7) Lymphocytes # (Auto) 1.4 x10^3/uL (1.0-4.8) Monocytes # (Auto) 1.4 x10^3/uL (0.0-1.1) Eosinophils # (Auto) 0.1 x10^3/uL (0.0-0.7) Basophils # (Auto) 0.1 x10^3/uL (0.0-0.2) Sodium Level 139 mmol/L (136-145) Potassium Level 3.9 mmol/L (3.5-5.1) Chloride Level 103 mmol/L (98-107) Carbon Dioxide Level 28 mmol/L (21-32) Anion Gap 8 (6-14) Blood Urea Nitrogen 18 mg/dL (7-20) Creatinine 3.4 mg/dL (0.6-1.0) Estimated GFR (Cockcroft-Gault) 14.2 BUN/Creatinine Ratio 5 (6-20) Glucose Level 209 mg/dL (70-99) Calcium Level 8.4 mg/dL (8.5-10.1) Total Bilirubin 0.4 mg/dL (0.2-1.0) Aspartate Amino Transf (AST/SGOT) 16 U/L (15-37) Alanine Aminotransferase (ALT/SGPT) 12 U/L (14-59) Alkaline Phosphatase 128 U/L (46-116) Total Protein 5.3 g/dL (6.4-8.2) Albumin 2.1 g/dL (3.4-5.0) Albumin/Globulin Ratio 0.7 (1.0-1.7) Test 02/07/18 11:31 Glucose (Fingerstick) 108 mg/dL (70-99) Laboratory Tests Test 02/06/18 16:06 02/06/18 20:28 02/07/18 06:30 02/07/18 07:18 Glucose (Fingerstick) 119 mg/dL (70-99) 160 mg/dL (70-99) 187 mg/dL (70-99) White Blood Count 15.8 x10^3/uL (4.0-11.0) Red Blood Count 2.59 x10^6/uL (3.50-5.40) Hemoglobin 8.2 g/dL (12.0-15.5) Hematocrit 24.5 % (36.0-47.0) Mean Corpuscular Volume 95 fL (79-100) Mean Corpuscular Hemoglobin 32 pg (25-35) Mean Corpuscular Hemoglobin Concent 33 g/dL (31-37) Red Cell Distribution Width 16.8 % (11.5-14.5) Platelet Count 347 x10^3/uL (140-400) Neutrophils (%) (Auto) 81 % (31-73) Lymphocytes (%) (Auto) 9 % (24-48) Monocytes (%) (Auto) 9 % (0-9) Eosinophils (%) (Auto) 1 % (0-3) Basophils (%) (Auto) 1 % (0-3) Neutrophils # (Auto) 12.8 x10^3uL (1.8-7.7) Lymphocytes # (Auto) 1.4 x10^3/uL (1.0-4.8) Monocytes # (Auto) 1.4 x10^3/uL (0.0-1.1) Eosinophils # (Auto) 0.1 x10^3/uL (0.0-0.7) Basophils # (Auto) 0.1 x10^3/uL (0.0-0.2) Sodium Level 139 mmol/L (136-145) Potassium Level 3.9 mmol/L (3.5-5.1) Chloride Level 103 mmol/L (98-107) Carbon Dioxide Level 28 mmol/L (21-32) Anion Gap 8 (6-14) Blood Urea Nitrogen 18 mg/dL (7-20) Creatinine 3.4 mg/dL (0.6-1.0) Estimated GFR (Cockcroft-Gault) 14.2 BUN/Creatinine Ratio 5 (6-20) Glucose Level 209 mg/dL (70-99) Calcium Level 8.4 mg/dL (8.5-10.1) Total Bilirubin 0.4 mg/dL (0.2-1.0) Aspartate Amino Transf (AST/SGOT) 16 U/L (15-37) Alanine Aminotransferase (ALT/SGPT) 12 U/L (14-59) Alkaline Phosphatase 128 U/L (46-116) Total Protein 5.3 g/dL (6.4-8.2) Albumin 2.1 g/dL (3.4-5.0) Albumin/Globulin Ratio 0.7 (1.0-1.7) Test 02/07/18 11:31 Glucose (Fingerstick) 108 mg/dL (70-99) Microbiology 02/06/18 Blood Culture - Preliminary, Resulted NO GROWTH AFTER 1 DAY 01/27/18 Anaerobic/Aerobic Culture - Final, Complete 01/27/18 Anaerobic Culture Result 1 (ROSALIND) - Final, Complete 01/27/18 Aerobic Culture - Final, Complete 01/27/18 Aerobic Culture Result 1 (ROSALIND) - Final, Complete 01/27/18 Antimicrobic Susceptibility - Final, Complete 01/27/18 Gram Stain - Final, Complete 01/27/18 Gram Stain Result 1 (ROSALIND) - Final, Complete 01/27/18 Gram Stain Result 2 (ROSALIND) - Final, Complete Medications Current Medications Hydromorphone HCl (Dilaudid) 2 mg 1X ONCE IV Last administered on 01/26/18at 22 :39; Start 01/26/18 at 22:00; Stop 01/26/18 at 22:01; Status DC Vancomycin HCl (Vanco Per Pharmacy) 1 each PRN DAILY PRN MC SEE COMMENTS Last administered on 01/31/18at 17:20; Start 01/26/18 at 22:45; Stop 02/01/18 at 11:41 ; Status DC Vancomycin HCl 1.75 gm/Sodium Chloride 500 ml @ 250 mls/hr 1X ONCE IV Last administered on 01/26/18at 23:53; Start 01/26/18 at 23:00; Stop 01/27/18 at 00:59 ; Status DC Ondansetron HCl (Zofran) 4 mg PRN Q8HRS PRN IV NAUSEA/VOMITING 1ST CHOICE; Start 01/26/18 at 23:15; Stop 01/27/18 at 23:14; Status DC Sodium Chloride 1,000 ml @ 75 mls/hr [id number] IV Last administered on at 00:39; Start 01/26/18 at 23:30; Stop 01/27/18 at 23:29; Status DC Pharmacy Consult (C.diff Med Screen By Rx) 1 each 1X ONCE MC ; Start 01/27/18 at 01:00; Stop 01/27/18 at 01:01; Status Cancel Influenza Virus Vaccine (Afluria Trivalent [id number] Syringe) 0.5 ml ONCE ONCE VAX IM Last administered on 01/27/18at 09:00; Start 01/27/18 at 09:00; Stop 01/27/18 at 09:01; Status DC Vancomycin HCl (Vancomycin Random Level) 1 each 1X ONCE MC Last administered on 01/28/18at 05:00; Start 01/28/18 at 05:00; Stop 01/28/18 at 05:01; Status DC Hydromorphone HCl (Dilaudid) 1 mg PRN Q3HRS PRN IV SEVERE PAIN Last administered on 02/07/18at 13:23; Start 01/27/18 at 03:30 Ondansetron HCl (Zofran) 4 mg PRN Q6HRS PRN IV NAUSEA/VOMITING; Start 01/27/18 at 10:45; Stop 01/27/18 at 18:00; Status DC Fentanyl Citrate (Fentanyl 2ml Vial) 25 mcg PRN Q5MIN PRN IV MILD PAIN; Start 01/27/18 at 10:45; Stop 01/27/18 at 18:00; Status DC Fentanyl Citrate (Fentanyl 2ml Vial) 50 mcg PRN Q5MIN PRN IV MODERATE TO SEVERE PAIN; Start 01/27/18 at 10:45; Stop 01/27/18 at 18:00; Status DC Morphine Sulfate (Morphine Sulfate) 1 mg PRN Q10MIN PRN IV SEVERE PAIN Last administered on 01/27/18at 16:28; Start 01/27/18 at 10:45; Stop 01/27/18 at 18:00 ; Status DC Ringer's Solution 1,000 ml @ 30 mls/hr Q24H IV Last administered on 01/27/18at 10:35; Start 01/27/18 at 10:35; Stop 01/27/18 at 19:36; Status DC Lidocaine HCl (Xylocaine-Mpf 1% 2ml Vial) 2 ml 1X PRN PRN ID IV START; Start 01/27/18 at 10:45; Stop 01/27/18 at 18:00; Status DC Hydromorphone HCl (Dilaudid) 0.5 mg PRN Q10MIN PRN IV SEV PAIN, Second choice Last administered on 01/27/18 15:59; Start 01/27/18 at 10:45; Stop 01/27/18 at 18:00; Status DC Prochlorperazine Edisylate (Compazine) 5 mg PACU PRN PRN IV NAUSEA, MRX1; Start 01/27/18 at 10:45; Stop 01/27/18 at 18:00; Status DC Amiodarone HCl (Cordarone) 200 mg DAILY PO Last administered on 02/07/18 09: 01; Start 01/27/18 at 12:30 Aspirin (Anthony Aspirin) 325 mg DAILY PO Last administered on 01/28/18 09:13; Start 01/27/18 at 12:30; Stop 01/28/18 at 14:26; Status DC Carbamazepine (TEGretol) 200 mg BID PO Last administered on 02/07/18 08:59; Start 01/27/18 at 12:30 Carvedilol (Coreg) 12.5 mg BIDWMEALS PO Last administered on 02/06/18 19:02; Start 01/27/18 at 12:30 Vitamin B Complex/ Vitamin C (Melly-Shabbir) 1 tab DAILY PO Last administered on 08:59; Start 01/27/18 at 12:30 Furosemide (Lasix) 80 mg [id number] PO Last administered on 02/07/18 08:59; Start 01/27/18 at 12:30 Insulin Glargine (Lantus) 22 units QHS SQ Last administered on 02/06/18at 22:21 ; Start 01/27/18 at 21:00 Morphine Sulfate (Ms Contin) 15 mg BID PO Last administered on 02/07/18 08:59 ; Start 01/27/18 at 12:30 Nitroglycerin (Nitrostat) 0.4 mg PRN Q5MIN PRN SL CHEST PAIN; Start 01/27/18 at 12:00 Nystatin (Nystop) 1 susanna PRN BID PRN TP SKIN BREAKDOWN; Start 01/27/18 at 12:00 Tramadol HCl (Ultram) 50 mg PRN Q4HRS PRN PO HEADACHE; Start 01/27/18 at 12:00 Non-Formulary Medication (Albuterol Sulfate (Proventil Hfa Inhaler)) 2 puff BID PRN IH FOR ASTHMA; Start 01/27/18 at 12:00; Status UNV Atorvastatin Calcium (Lipitor) 80 mg QHS PO Last administered on 02/06/18 22: 10; Start 01/27/18 at 21:00 Calcitriol (Rocaltrol) 0.25 mcg DAILY PO Last administered on 02/07/18at 08:59 ; Start 01/27/18 at 12:30 Diltiazem HCl (Cardizem 24hr Cd) 120 mg DAILY PO Last administered on at 09:00; Start 01/27/18 at 12:30 Erythromycin (E-Mycin) 250 mg BID PO Last administered on 02/07/18 09:01; Start 01/27/18 at 21:00 Fenofibrate (Lofibra) 134 mg QHS PO Last administered on 02/06/18at 22:11; Start 01/27/18 at 21:00 Non-Formulary Medication (Fluconazole (Diflucan)) 100 mg PRN PO ; Start at 12:00; Status UNV Lidocaine (Lidoderm) 1 patch PRN DAILY PRN TD PAIN; Start 01/27/18 at 09:00 Niacin (Slo-Niacin) 500 mg QHS PO Last administered on 02/06/18 22:10; Start 01/27/18 at 21:00 Ondansetron HCl (Zofran Odt) 4 mg PRN Q6HRS PRN PO NAUSEA/VOMITING; Start 01/27 at 12:15 Miscellaneous (Lidoderm Patch Removal) 1 ea QHS MC Last administered on at 20:57; Start 01/27/18 at 21:00 Albuterol Sulfate (Ventolin Neb Soln) 2.5 mg PRN BID PRN NEB SHORTNESS OF BREATH Last administered on 01/27/18 21:59; Start 01/27/18 at 12:30 Lidocaine HCl (Lidocaine 1% 50ml Vial) 50 ml 1X ONCE INJ Last administered on 01/27/18at 14:06; Start 01/27/18 at 12:45; Stop 01/27/18 at 12:46; Status DC Hydromorphone HCl (Dilaudid) 2 mg STK-MED ONCE .ROUTE ; Start 01/27/18 at 12:36 ; Stop 01/27/18 at 12:38; Status DC Propofol 20 ml @ As Directed STK-MED ONCE IV ; Start 01/27/18 at 12:38; Stop at 12:39; Status DC Bacitracin 31092 unit/Sodium Chloride 3,000 ml @ 0 mls/hr 1X ONCE IR ; Start 01/27/18 at 13:15; Stop 01/27/18 at 13:16; Status Cancel Dexamethasone Sodium Phosphate (Decadron) 20 mg STK-MED ONCE .ROUTE ; Start 01/27/18 at 13:11; Stop 01/27/18 at 13:12; Status DC Ondansetron HCl (Zofran) 4 mg STK-MED ONCE .ROUTE ; Start 01/27/18 at 13:11; Stop 01/27/18 at 13:12; Status DC Sevoflurane (Ultane) 30 ml STK-MED ONCE IH ; Start 01/27/18 at 13:11; Stop 01/27 at 13:12; Status DC Bacitracin (Bacitracin) 50,000 unit STK-MED ONCE IRR Last administered on at 13:58; Start 01/27/18 at 12:14; Stop 01/27/18 at 13:16; Status DC Clopidogrel Bisulfate (Plavix) 75 mg DAILYWBKFT PO Last administered on at 09:13; Start 01/28/18 at 08:00; Stop 01/28/18 at 14:28; Status DC Hydromorphone HCl (Dilaudid) 2 mg STK-MED ONCE .ROUTE ; Start 01/27/18 at 15:38 ; Stop 01/27/18 at 15:40; Status DC Gentamicin Sulfate 235 mg/ Dextrose 105.875 ml @ 105.875 mls/hr 1X ONCE IV Last administered on 01/27/18at 19:56; Start 01/27/18 at 16:00; Stop 01/27/18 at 16:59; Status DC Lactobacillus Rhamnosus (Culturelle) 1 cap BID PO Last administered on at 09:01; Start 01/27/18 at 21:00 Cefepime HCl 1 gm/ Dextrose 50 ml @ 100 mls/hr DAILY IV ; Start 01/29/18 at 09: 00; Status UNV Metronidazole 100 ml @ 100 mls/hr Q12HR IV Last administered on 02/02/18at 21: 00; Start 01/28/18 at 10:00; Stop 02/03/18 at 10:49; Status DC Cefepime HCl (Maxipime) 1 gm Q24H IVP Last administered on 02/03/18at 10:54; Start 01/28/18 at 10:00; Stop 02/04/18 at 12:02; Status DC Lidocaine HCl (Xylocaine-Mpf 2% Vial) 2 ml STK-MED ONCE .ROUTE ; Start 01/28/18 at 11:41; Stop 01/28/18 at 11:42; Status DC Sodium Chloride 1,000 ml @ 1,000 mls/hr Q1H PRN IV hypotension; Start 01/28/18 at 12:09; Stop 01/28/18 at 18:08; Status DC Info (PHARMACY MONITORING -- do not chart) 1 each PRN DAILY PRN MC SEE COMMENTS ; Start 01/28/18 at 12:15; Status UNV Info (PHARMACY MONITORING -- do not chart) 1 each PRN DAILY PRN MC SEE COMMENTS ; Start 01/28/18 at 12:15; Stop 01/31/18 at 09:10; Status DC Lidocaine HCl (Xylocaine-Mpf 2% Vial) 2 ml 1X ONCE INJ ; Start 01/28/18 at 12: 15; Stop 01/28/18 at 12:21; Status DC Ticagrelor (Brilinta) 90 mg BID PO Last administered on 02/07/18at 08:59; Start 01/28/18 at 21:00 Diphenhydramine HCl (Benadryl) 25 mg PRN Q6HRS PRN PO ITCHING; Start 01/28/18 at 14:15 Aspirin (Ecotrin) 81 mg DAILYWBKFT PO Last administered on 02/06/18at 16:20; Start 01/29/18 at 08:00 Insulin Human Lispro (HumaLOG) 0-5 UNITS TIDWMEALS SQ Last administered on at 09:07; Start 01/28/18 at 17:00 Dextrose (Dextrose 50%-Water Syringe) 12.5 gm PRN Q15MIN PRN IV SEE COMMENTS Last administered on 02/05/18at 08:50; Start 01/28/18 at 14:45 Hydralazine HCl (Apresoline) 10 mg PRN TID PRN PO hypertension; Start 01/28/18 at 14:45 Oxycodone/ Acetaminophen (Percocet 10/325) 1 tab PRN Q4HRS PRN PO pain SEVERE Last administered on 02/03/18at 10:48; Start 01/29/18 at 07:45 Promethazine HCl (Phenergan Supp) 12.5 mg 1X ONCE DC ; Start 01/29/18 at 12:15 ; Stop 01/29/18 at 12:36; Status DC Promethazine HCl (Phenergan Im) 12.5 mg 1X ONCE IM ; Start 01/29/18 at 12:45; Stop 01/29/18 at 12:46; Status DC Lidocaine/ Epinephrine (LIDOCAINE 1%-EPI 1:100,000 Multi-Dose) 20 ml STK-MED ONCE .ROUTE ; Start 01/29/18 at 12:45; Stop 01/29/18 at 12:47; Status DC Heparin Sodium (Porcine) (Hep Lock Adult) 500 unit STK-MED ONCE IV ; Start 01/29 at 12:45; Stop 01/29/18 at 12:47; Status DC Morphine Sulfate (Morphine Sulfate) 10 mg STK-MED ONCE .ROUTE ; Start 01/29/18 at 13:23; Stop 01/29/18 at 13:25; Status DC Midazolam HCl (Versed) 2 mg STK-MED ONCE .ROUTE ; Start 01/29/18 at 13:23; Stop 01/29/18 at 13:25; Status DC Morphine Sulfate (Morphine Sulfate) 1 mg PRN Q10MIN PRN IV SEVERE PAIN Last administered on 02/01/18at 15:46; Start 02/01/18 at 07:00; Stop 02/02/18 at 06:59 ; Status DC Ringer's Solution 1,000 ml @ 30 mls/hr Q24H IV ; Start 02/01/18 at 07:00; Stop 02/01/18 at 18:59; Status DC Lidocaine HCl (Xylocaine-Mpf 1% 2ml Vial) 2 ml PRN 1X PRN ID PRIOR TO IV START ; Start 02/01/18 at 07:00; Stop 02/02/18 at 06:59; Status DC Hydromorphone HCl (Dilaudid) 0.5 mg PRN Q10MIN PRN IV SEV PAIN, Second choice Last administered on 02/01/18at 16:08; Start 02/01/18 at 07:00; Stop 02/02/18 at 06:59; Status DC Prochlorperazine Edisylate (Compazine) 5 mg PACU PRN PRN IV NAUSEA, MRX1; Start 02/01/18 at 07:00; Stop 02/02/18 at 06:59; Status DC Lidocaine/ Epinephrine (LIDOCAINE 1%-EPI 1:100,000 Multi-Dose) 8 ml 1X ONCE IJ Last administered on 01/29/18at 14:01; Start 01/29/18 at 14:00; Stop 01/29/18 at 14:17; Status DC Heparin Sodium (Porcine) (Hep Lock Adult) 500 unit 1X ONCE IV Last administered on 01/29/18at 14:04; Start 01/29/18 at 14:00; Stop 01/29/18 at 14:17 ; Status DC Morphine Sulfate (Morphine Sulfate) 5 mg 1X ONCE IV Last administered on at 14:01; Start 01/29/18 at 14:00; Stop 01/29/18 at 14:17; Status DC Ondansetron HCl (Zofran) 4 mg PRN Q6HRS PRN IV NAUSEA/VOMITING 1ST CHOICE Last administered on 02/02/18at 09:51; Start 01/29/18 at 14:45 Vancomycin HCl 500 mg/Sodium Chloride 100 ml @ 100 mls/hr 1X ONCE IV Last administered on 01/29/18at 21:04; Start 01/29/18 at 18:00; Stop 01/29/18 at 18:59 ; Status DC Sodium Chloride 1,000 ml @ 1,000 mls/hr Q1H PRN IV hypotension; Start 01/30/18 at 13:09; Stop 01/30/18 at 19:08; Status DC Sodium Chloride (Normal Saline Flush) 10 ml 1X PRN PRN IV AP catheter pack; Start 01/30/18 at 13:15; Stop 01/31/18 at 13:14; Status DC Sodium Chloride (Normal Saline Flush) 10 ml 1X PRN PRN IV 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; Start 01/30/18 at 13:15; Stop 01/31/18 at 13:14; Status DC Sodium Chloride 1,000 ml @ 400 mls/hr Q2H30M PRN IV PATENCY; Start 01/30/18 at 13:09; Stop 01/31/18 at 01:08; Status DC Info (PHARMACY MONITORING -- do not chart) 1 each PRN DAILY PRN MC SEE COMMENTS ; Start 01/30/18 at 13:15; Stop 01/30/18 at 13:17; Status DC Info (PHARMACY MONITORING -- do not chart) 1 each PRN DAILY PRN MC SEE COMMENTS ; Start 01/30/18 at 13:15; Stop 02/04/18 at 07:27; Status DC Lidocaine HCl (Lidocaine 1% 50ml Vial) 50 ml 1X ONCE INJ ; Start 01/30/18 at 15 :45; Stop 01/30/18 at 15:46; Status DC Vancomycin HCl 500 mg/Sodium Chloride 100 ml @ 100 mls/hr ONCE ONCE IV Last administered on 01/30/18at 20:49; Start 01/30/18 at 18:00; Stop 01/30/18 at 18:59 ; Status DC Cefazolin Sodium 1 gm/Sodium Chloride 500 ml @ 500 mls/hr 1X ONCE IRR ; Start 02/01/18 at 06:00; Stop 02/01/18 at 06:59; Status DC Lidocaine HCl (Xylocaine-Mpf 2% Vial) 2 ml STK-MED ONCE .ROUTE ; Start 01/28/18 at 12:00; Stop 02/01/18 at 08:30; Status DC Darbepoetin Mauricio (Aranesp) 60 mcg [id number] SQ Last administered on 02/01/18at 21 :38; Start 02/01/18 at 21:00 Cellulose (Surgicel Fibrillar 1x2) 1 each STK-MED ONCE .ROUTE ; Start 02/01/18 at 12:05; Stop 02/01/18 at 13:06; Status DC Lidocaine HCl (Xylocaine 1% Pf 30ml Vial) 30 ml 1X ONCE INJ ; Start 02/01/18 at 13:15; Stop 02/01/18 at 13:18; Status DC Sodium Chloride 1,000 ml @ 75 mls/hr [id number] IV Last administered on at 00:15; Start 02/01/18 at 13:45; Stop 02/02/18 at 16:43; Status DC Morphine Sulfate (Morphine Sulfate) 10 mg STK-MED ONCE .ROUTE ; Start 02/01/18 at 14:24; Stop 02/01/18 at 14:25; Status DC Midazolam HCl (Versed) 2 mg STK-MED ONCE .ROUTE ; Start 02/01/18 at 14:24; Stop 02/01/18 at 14:25; Status DC Midazolam HCl (Versed) 2 mg STK-MED ONCE .ROUTE ; Start 02/01/18 at 14:25; Stop 02/01/18 at 14:26; Status DC Propofol 20 ml @ As Directed STK-MED ONCE IV ; Start 02/01/18 at 14:25; Stop at 14:26; Status DC Dexamethasone Sodium Phosphate (Decadron) 20 mg STK-MED ONCE .ROUTE ; Start 02/01/18 at 14:25; Stop 02/01/18 at 14:26; Status DC Ondansetron HCl (Zofran) 4 mg STK-MED ONCE .ROUTE ; Start 02/01/18 at 14:25; Stop 02/01/18 at 14:26; Status DC Bacitracin (Bacitracin) 50,000 unit STK-MED ONCE IRR Last administered on at 14:55; Start 02/01/18 at 13:32; Stop 02/01/18 at 14:32; Status DC Vancomycin HCl 500 mg/Sodium Chloride 100 ml @ 100 mls/hr [id number] IV Last administered on 02/02/18at 16:15; Start 02/02/18 at 16:00; Stop 02/04/18 at 12: 02; Status DC Sodium Chloride 1,000 ml @ 1,000 mls/hr Q1H PRN IV hypotension; Start 02/02/18 at 09:39; Stop 02/02/18 at 15:38; Status DC Albumin Human 200 ml @ 200 mls/hr 1X PRN PRN IV Hypotension; Start 02/02/18 at 09:45; Stop 02/02/18 at 15:44; Status DC Sodium Chloride 1,000 ml @ 400 mls/hr Q2H30M PRN IV PATENCY; Start 02/02/18 at 09:39; Stop 02/02/18 at 21:38; Status DC Info (PHARMACY MONITORING -- do not chart) 1 each PRN DAILY PRN MC SEE COMMENTS ; Start 02/02/18 at 09:45; Stop 02/04/18 at 07:28; Status DC Info (PHARMACY MONITORING -- do not chart) 1 each PRN DAILY PRN MC SEE COMMENTS ; Start 02/02/18 at 09:45; Status UNV Prochlorperazine Edisylate (Compazine) 10 mg PRN Q6HRS PRN IV NAUSEA/VOMITING 2ND CHOICE Last administered on 02/02/18at 23:23; Start 02/02/18 at 11:30 Vancomycin HCl (Vanco Per Pharmacy) 1 each PRN DAILY PRN MC SEE COMMENTS Last administered on 02/02/18at 13:57; Start 02/02/18 at 14:00; Stop 02/04/18 at 12: 02; Status DC Famotidine (Pepcid Vial) 20 mg DAILY IVP Last administered on 02/07/18at 09:01 ; Start 02/03/18 at 10:00 Alteplase, Recombinant (Cathflo) 2 mg 1X ONCE INT CAT Last administered on 03/14at 02:56; Start 02/04/18 at 03:00; Stop 02/04/18 at 03:01; Status DC Sodium Chloride 1,000 ml @ 1,000 mls/hr Q1H PRN IV hypotension; Start at 07:15; Stop 02/04/18 at 13:14; Status DC Albumin Human 200 ml @ 200 mls/hr 1X PRN PRN IV Hypotension Last administered on 02/04/18at 11:26; Start 02/04/18 at 07:15; Stop 02/04/18 at 13:14; Status DC Acetaminophen (Tylenol) 500 mg 1X PRN PRN PO MILD PAIN / TEMP; Start 02/04/18 at 07:15; Stop 02/05/18 at 07:14; Status DC Diphenhydramine HCl (Benadryl) 25 mg 1X PRN PRN IV ITCHING; Start 02/04/18 at 07:15; Stop 02/05/18 at 07:14; Status DC Diphenhydramine HCl (Benadryl) 25 mg 1X PRN PRN IV ITCHING; Start 02/04/18 at 07:15; Stop 02/05/18 at 07:14; Status DC Sodium Chloride 1,000 ml @ 400 mls/hr Q2H30M PRN IV PATENCY; Start 02/04/18 at 07:15; Stop 02/04/18 at 19:14; Status DC Info (PHARMACY MONITORING -- do not chart) 1 each PRN DAILY PRN MC SEE COMMENTS ; Start 02/04/18 at 07:15 Lidocaine HCl (Xylocaine-Mpf 2% Vial) 2 ml STK-MED ONCE .ROUTE ; Start at 09:43; Stop 02/04/18 at 09:44; Status DC Docusate Sodium (Colace) 100 mg PRN DAILY PRN PO CONSTIPATION Last administered on 02/06/18at 16:27; Start 02/04/18 at 10:30 Ceftriaxone Sodium 2 gm/ Dextrose 100 ml @ 200 mls/hr Q24H IV Last administered on 02/04/18at 14:24; Start 02/04/18 at 13:00; Stop 02/05/18 at 11 :49; Status DC Morphine Sulfate (Morphine Sulfate) 1 mg PRN Q10MIN PRN IV SEVERE PAIN; Start 02/05/18 at 07:00; Stop 02/06/18 at 06:59; Status DC Ringer's Solution 1,000 ml @ 30 mls/hr Q24H IV ; Start 02/05/18 at 07:00; Stop 02/05/18 at 18:59; Status DC Lidocaine HCl (Xylocaine-Mpf 1% 2ml Vial) 2 ml PRN 1X PRN ID IV START; Start 02/05/18 at 07:00; Stop 02/06/18 at 06:59; Status DC Hydromorphone HCl (Dilaudid) 0.5 mg PRN Q10MIN PRN IV SEV PAIN, Second choice; Start 02/05/18 at 07:00; Stop 02/06/18 at 06:59; Status DC Prochlorperazine Edisylate (Compazine) 5 mg PACU PRN PRN IV NAUSEA, MRX1; Start 02/05/18 at 07:00; Stop 02/06/18 at 06:59; Status DC Lidocaine HCl (Xylocaine-Mpf 2% Vial) 2 ml STK-MED ONCE .ROUTE ; Start at 10:00; Stop 02/05/18 at 08:19; Status DC Sodium Chloride 1,000 ml @ 75 mls/hr [id number] IV Last administered on at 07:00; Start 02/05/18 at 10:30 Cefepime HCl 1 gm/ Dextrose 50 ml @ 100 mls/hr DAILY IV ; Start 02/06/18 at 09 :00; Status UNV Vancomycin HCl (Vanco Per Pharmacy) 1 each PRN DAILY PRN MC SEE COMMENTS Last administered on 02/07/18at 13:36; Start 02/05/18 at 12:00 Cefepime HCl (Maxipime) 1 gm Q24H IVP Last administered on 02/07/18at 12:30; Start 02/05/18 at 12:00 Propofol 20 ml @ As Directed STK-MED ONCE IV ; Start 02/05/18 at 12:08; Stop 02/05/18 at 12:09; Status DC Lidocaine HCl (Xylocaine-Mpf 2% Vial) 2 ml STK-MED ONCE .ROUTE ; Start at 12:08; Stop 02/05/18 at 12:09; Status DC Vancomycin HCl 1.5 gm/Sodium Chloride 500 ml @ 250 mls/hr 1X ONCE IV Last administered on 02/05/18at 14:05; Start 02/05/18 at 14:00; Stop 02/05/18 at 15 :59; Status DC Vancomycin HCl (Vancomycin Random Level) 1 each 1X ONCE MC Last administered on 02/06/18at 05:00; Start 02/06/18 at 05:00; Stop 02/06/18 at 05:01; Status DC Sodium Chloride 1,000 ml @ 1,000 mls/hr Q1H PRN IV hypotension; Start at 08:12; Stop 02/06/18 at 14:11; Status DC Sodium Chloride 1,000 ml @ 400 mls/hr Q2H30M PRN IV PATENCY; Start 02/06/18 at 08:12; Stop 02/06/18 at 20:11; Status DC Info (PHARMACY MONITORING -- do not chart) 1 each PRN DAILY PRN MC SEE COMMENTS ; Start 02/06/18 at 08:15; Status UNV Info (PHARMACY MONITORING -- do not chart) 1 each PRN DAILY PRN MC SEE COMMENTS ; Start 02/06/18 at 08:15; Status UNV Lidocaine HCl (Xylocaine-Mpf 1% 2ml Vial) 2 ml 1X ONCE ID Last administered on 02/06/18at 08:30; Start 02/06/18 at 08:30; Stop 02/06/18 at 08:31; Status DC Lidocaine HCl (Xylocaine-Mpf 2% Vial) 2 ml STK-MED ONCE .ROUTE ; Start at 08:32; Stop 02/06/18 at 08:33; Status DC Diphenhydramine HCl (Benadryl) 50 mg 1X ONCE IVP Last administered on at 09:10; Start 02/06/18 at 09:00; Stop 02/06/18 at 09:02; Status DC Vancomycin HCl (Vancomycin Random Level) 1 each 1X ONCE MC ; Start 02/08/18 at 05:00; Stop 02/08/18 at 05:01 Active Scripts Active Percocet 10-325 Mg Tablet (Oxycodone/Acetaminophen) 1 Each Tablet 1 Tab PO Q4HRS Brilinta (Ticagrelor) 90 Mg Tablet 90 Mg PO BID 30 Days Morphine Sulfate Er (Morphine Sulfate) 15 Mg Tablet.er 15 Mg PO BID Reported Brilinta (Ticagrelor) 90 Mg Tablet 90 Mg PO BID Lidocaine 1 Each Adh..patch 1 Each TP PRN DAILY PRN Calcitriol 0.25 Mcg Capsule 1 Cap PO DAILY Tegretol (Carbamazepine) 200 Mg Tablet 1 Tab PO BID Tramadol Hcl 50 Mg Tablet 50 Mg PO Q4HRS PRN Lantus Solostar (Insulin Glargine,Hum.rec.anlog) 100 Unit/1 Ml Insuln.pen 22 Unit SQ QHS Diflucan (Fluconazole) 100 Mg Tablet 100 Mg PO PRN Carvedilol 3.125 Mg Tablet 12.5 Mg PO BID Erythromycin (Erythromycin Base) 250 Mg Capsule.dr 250 Mg PO BID Cardizem Cd (Diltiazem Hcl) 180 Mg Cap.er.24h 120 Mg PO DAILY Amiodarone Hcl 200 Mg Tablet 1 Tab PO DAILY Nystatin 15 Gm Powder 1 Susanna TP PRN BID PRN Proventil Hfa Inhaler (Albuterol Sulfate) 6.7 Gm Hfa.aer.ad 2 Puff IH BID PRN Zofran (Ondansetron Hcl) 4 Mg Tablet 4 Mg PO Q6-8HRS PRN Nephro-Shabbir Tablet (Folic Acid/Vitamin B Comp W-C) 0.8 Mg Tablet 1 Tab PO DAILY Tricor (Fenofibrate Nanocrystallized) 145 Mg Tablet 1 Tab PO HS Lipitor (Atorvastatin Calcium) 80 Mg Tablet 80 Mg PO HS Niacin 500 Mg Tablet 500 Mg PO HS Novolog (Insulin Aspart) 100 Unit/1 Ml Cartridge 0 SQ TIDAC sliding scale Aspirin 325 Mg Tablet 325 Mg PO DAILY Furosemide 80 Mg Tablet 80 Mg PO BID Docusate Sodium 100 Mg Capsule 1 Cap PO PRN PRN Nitrostat (Nitroglycerin) 0.4 Mg Tab.subl 0.4 Mg SL PRN Q5MIN PRN Take as needed for chest pain Vitals/I & O Vital Sign - Last 24 Hours 02/06/18 02/06/18 02/06/18 02/06/18 15:16 16:25 16:27 16:28 Temp 98.6 98.6 Pulse 80 80 80 Resp 18 20 B/P (MAP) 135/53 (80) 135/53 135/53 Pulse Ox 94 94 O2 Delivery Room Air Room Air O2 Flow Rate 2.0 02/06/18 02/06/18 02/06/18 02/06/18 16:48 19:00 19:02 19:50 Temp 97.6 97.6 Pulse 79 80 Resp 18 19 B/P (MAP) 132/51 (78) 135/53 Pulse Ox 94 100 94 O2 Delivery Room Air Nasal Cannula Nasal Cannula O2 Flow Rate 2.0 2.0 02/06/18 02/06/18 02/06/18 02/06/18 20:00 20:20 22:11 22:52 Temp 98.8 98.8 Pulse 81 Resp 16 18 B/P (MAP) 146/58 (87) Pulse Ox 94 100 O2 Delivery Room Air Room Air Room Air 02/07/18 02/07/18 02/07/18 02/07/18 02:13 03:00 06:21 07:59 Temp 99.3 97.9 99.3 97.9 Pulse 52 70 Resp 18 16 17 B/P (MAP) 99/46 (63) 120/51 (74) Pulse Ox 98 98 100 O2 Delivery Room Air Room Air Room Air 02/07/18 02/07/18 02/07/18 02/07/18 08:30 08:59 09:00 09:01 Pulse 52 52 B/P (MAP) 99/46 99/46 Pulse Ox 98 O2 Delivery Room Air Room Air O2 Flow Rate 2.0 02/07/18 02/07/18 02/07/18 02/07/18 10:12 10:40 11:50 12:59 Temp 98.4 98.4 Pulse 77 Resp 18 B/P (MAP) 127/53 (77) Pulse Ox 98 100 100 100 O2 Delivery Room Air Room Air Room Air Room Air O2 Flow Rate 2.0 2.0 2.0 02/07/18 13:23 Pulse Ox 100 O2 Delivery Room Air O2 Flow Rate 2.0 Intake and Output 02/06/18 02/06/18 02/07/18 15:00 23:00 07:00 Intake Total 200 ml 400 ml 1200 ml Output Total 150 ml Balance 50 ml 400 ml 1200 ml PAPITO REZA III DO Feb 07, 2018 13:48
[2018-02-07] MEDS: traMADol 50 MG TABLET PO PRN (15:25)
[2018-02-07 15:50] VITALS: BP 126/45
[2018-02-07] MEDS: ONDANSETRON ODT 4 MG TAB.RAPDIS. PO PRN (16:53)
[2018-02-07 19:00] VITALS: BP 136/57
[2018-02-07] MEDS: PATCH REMOVAL. MC SCH (21:00)
[2018-02-07] MEDS: INSULIN GLARGINE 300 UNITS/3 ML INSULN.PEN. SQ SCH (21:00)
[2018-02-07] MEDS: NIACIN ER 500 MG TABLET.ER PO SCH (21:10)
[2018-02-07] MEDS: FENOFIBRATE,MICRONIZED 134 MG CAPSULE PO SCH (21:10)
[2018-02-07] MEDS: ATORVASTATIN CALCIUM 40 MG TABLET. PO SCH (21:10)
[2018-02-07] MEDS: DOCUSATE SODIUM 100 MG CAPSULE. PO PRN (22:13)
[2018-02-07 23:00] VITALS: BP 130/50
[2018-02-08] VITALS (8 sets, daily range): BP systolic 113–158; BP diastolic 27–52
[2018-02-08] MEDS: HYDROmorphone 2 MG/ML VIAL IV PRN ×4 (03:27→20:41)
[2018-02-08 04:03] LABS: BASO % 0 % (0-3); EOS # 0.1 x10^3/uL (0.0-0.7); EOS % 0 % (0-3); HEMATOCRIT 22.4 % (36.0-47.0); HEMOGLOBIN 7.6 g/dL (12.0-15.5); LYMPH # 1.1 x10^3/uL (1.0-4.8); LYMPH % 7 % (24-48); MEAN CORPUSCULAR HEMOGLOBIN 32 pg (25-35); MEAN CORPUSCULAR HGB CONC 34 g/dL (31-37); MEAN CORPUSCULAR VOLUME 94 fL (79-100); MONO # 1.1 x10^3/uL (0.0-1.1); MONO % 7 % (0-9); NEUT # 14.2 x10^3uL (1.8-7.7); NEUT % 86 % (31-73); PLATELET COUNT 348 x10^3/uL (140-400); RED BLOOD COUNT 2.38 x10^6/uL (3.50-5.40); RED CELL DISTRIBUTION WIDTH 16.7 % (11.5-14.5); WHITE BLOOD COUNT 16.5 x10^3/uL (4.0-11.0)
[2018-02-08 04:29] LABS: ALBUMIN/GLOBULIN RATIO 0.7 (1.0-1.7); CALCIUM 8.3 mg/dL (8.5-10.1); CREATININE 4.2 mg/dL (0.6-1.0); GFR 11.1; POTASSIUM 3.8 mmol/L (3.5-5.1); TOTAL BILIRUBIN 0.4 mg/dL (0.2-1.0)
[2018-02-08] MEDS: traMADol 50 MG TABLET PO PRN (04:36)
[2018-02-08] MEDS ORDERED: VANCOMYCIN RANDOM LEVEL. MC ONE (05:00)
[2018-02-08] MEDS: IV NORMAL SALINE 1000ML BAG 1,000 ML IV SCH (05:10)
[2018-02-08] MEDS: INSULIN LISPRO 300 UNITS/3 ML INSULN.PEN. SQ SCH ×3 (08:00→17:00)
[2018-02-08] MEDS: CALCITRIOL 0.25 MCG CAPSULE. PO SCH (08:53)
[2018-02-08] MEDS: CARVEDILOL 12.5 MG TABLET. PO SCH ×2 (08:54→17:00)
[2018-02-08] MEDS: ASPIRIN ENTERIC COATED 81 MG TABLET.DR. PO SCH (08:54)
[2018-02-08] MEDS: ERYTHROMYCIN BASE 250 MG TABLET PO SCH ×2 (08:54→20:39)
[2018-02-08] MEDS: FOLIC/VIT B COMP W-C (RENAL) TABLET. PO SCH (08:54)
[2018-02-08] MEDS: carBAMazepine 200 MG TABLET PO SCH ×2 (08:55→20:40)
[2018-02-08] MEDS: TICAGRELOR 90 MG TABLET. PO SCH ×2 (08:56→20:39)
[2018-02-08] MEDS: MORPHINE ER 15 MG TABLET.ER PO SCH ×2 (08:56→20:39)
[2018-02-08] MEDS: FUROSEMIDE 80 MG TABLET. PO SCH ×2 (08:56→14:50)
[2018-02-08] MEDS: AMIODARONE HCL 200 MG TABLET. PO SCH (08:57)
[2018-02-08] MEDS: LACTOBACILLUS RHAMNOSUS GG 1 CAPSULE. PO SCH ×2 (08:58→20:39)
[2018-02-08] MEDS: FAMOTIDINE 20 MG/2 ML VIAL IVP SCH (09:00)
--- NOTE | 2018-02-08 10:46 | PDOC ---
SUBJECTIVE ROS c/o Mild Headache OBJECTIVE Vital Signs Vital Signs Date Time Temp Pulse Resp B/P (MAP) Pulse Ox O2 Delivery O2 Flow Rate FiO2 02/08/18 09:00 Room Air 02/08/18 08:57 72 119/48 02/08/18 08:56 19 02/08/18 07:00 97.7 99 2.0 97.7 I & 0 Intake and Output 02/08/18 07:00 Intake Total 300 ml Balance 300 ml Intake Oral 300 ml # Voids 4 PHYSICAL EXAM Physical Exam General: No acute distress HEENT:OM moist Lungs: Clear to auscultation, Non labored Heart: Regular rate, Normal S1, Normal S2 Abdomen: Soft, No tenderness, PD catheter + Extremities: Lt BKA, Rt S/P Debridement and Muscle flap Changes of CVI+ RLE less swollen and red,Incision well-approx w/ alberto. Wound vac in place AV Shunt Rt arm SKIN: without rash Neuro: Grossly Normal Gu- no hartley DIAGNOSIS/ASSESSMENT Assessment & Plan ESRD -On PD at home Was on HD switched to PD On HD while inpatient , go back to PD when Home No Indication for HD today, Tomorrow as per her Schedule Right femoral surgical site infection- s/p operative debridement with muscle flap. As per vascular and ID Anemia- Stable DM- as per primary DW Pt COMMENT/RELEVANT DATA Meds Current Medications Medications (Trade) Dose Ordered Sig/Martin Start Time Stop Time Status Last Admin Dose Admin Acetaminophen (Tylenol) 500 mg 1X PRN PRN 02/04/18 07:15 02/05/18 07:14 DC Albumin Human 200 ml @ 200 mls/hr 1X PRN PRN 02/04/18 07:15 02/04/18 13:14 DC 02/04/18 11:26 200 MLS/HR Albuterol Sulfate (Ventolin Neb Soln) 2.5 mg PRN BID PRN 01/27/18 12:30 01/27/18 21:59 2.5 MG Alteplase, Recombinant (Cathflo) 2 mg 1X ONCE 02/04/18 03:00 02/04/18 03:01 DC 02/04/18 02:56 2 MG Amiodarone HCl (Cordarone) 200 mg DAILY 01/27/18 12:30 02/08/18 08:57 200 MG Aspirin (Anthony Aspirin) 325 mg DAILY 01/27/18 12:30 01/28/18 14:26 DC 01/28/18 09:13 325 MG Aspirin (Ecotrin) 81 mg [id number] 01/29/18 08:00 02/08/18 08:54 81 MG Atorvastatin Calcium (Lipitor) 80 mg QHS 01/27/18 21:00 02/07/18 21:10 80 MG Bacitracin (Bacitracin) 50,000 unit STK-MED ONCE 02/01/18 13:32 02/01/18 14:32 DC 02/01/18 14:55 50,000 UNIT Bacitracin [id number] unit/Sodium Chloride 3,000 ml @ 0 mls/hr 1X ONCE 01/27/18 13:15 01/27/18 13:16 Cancel Calcitriol (Rocaltrol) 0.25 mcg DAILY 01/27/18 12:30 02/08/18 08:53 0.25 MCG Carbamazepine (TEGretol) 200 mg BID 01/27/18 12:30 02/08/18 08:55 200 MG Carvedilol (Coreg) 12.5 mg BIDWMEALS 01/27/18 12:30 02/08/18 08:54 12.5 MG Cefazolin Sodium 1 gm/Sodium Chloride 500 ml @ 500 mls/hr 1X ONCE 02/01/18 06:00 02/01/18 06:59 DC Cefepime HCl (Maxipime) 1 gm Q24H 02/05/18 12:00 02/07/18 12:30 1 GM Cefepime HCl 1 gm/ Dextrose 50 ml @ 100 mls/hr DAILY 02/06/18 09:00 UNV Ceftriaxone Sodium 2 gm/ Dextrose 100 ml @ 200 mls/hr Q24H 02/04/18 13:00 02/05/18 11:49 DC 02/04/18 14:24 200 MLS/HR Cellulose (Surgicel Fibrillar 1x2) 1 each STK-MED ONCE 02/01/18 12:05 02/01/18 13:06 DC Clopidogrel Bisulfate (Plavix) 75 mg DAILYWBKFT 01/28/18 08:00 01/28/18 14:28 DC 01/28/18 09:13 75 MG Darbepoetin Mauricio (Aranesp) 60 mcg WEEKLYHS 02/01/18 21:00 02/01/18 21:38 60 MCG Dexamethasone Sodium Phosphate (Decadron) 20 mg STK-MED ONCE 02/01/18 14:25 02/01/18 14:26 DC Dextrose (Dextrose 50%-Water Syringe) 12.5 gm PRN Q15MIN PRN 01/28/18 14:45 02/05/18 08:50 12.5 GM Diltiazem HCl (Cardizem 24hr Cd) 120 mg DAILY 01/27/18 12:30 02/08/18 08:57 120 MG Diphenhydramine HCl (Benadryl) 50 mg 1X ONCE 02/06/18 09:00 02/06/18 09:02 DC 02/06/18 09:10 50 MG Docusate Sodium (Colace) 100 mg PRN DAILY PRN 02/04/18 10:30 02/07/18 22:13 100 MG Erythromycin (E-Mycin) 250 mg BID 01/27/18 21:00 02/08/18 08:54 250 MG Famotidine (Pepcid Vial) 20 mg DAILY 02/03/18 10:00 02/08/18 09:00 20 MG Fenofibrate (Lofibra) 134 mg QHS 01/27/18 21:00 02/07/18 21:10 134 MG Fentanyl Citrate (Fentanyl 2ml Vial) 50 mcg PRN Q5MIN PRN 01/27/18 10:45 01/27/18 18:00 DC Furosemide (Lasix) 80 mg [id number] 01/27/18 12:30 02/08/18 08:56 80 MG Gentamicin Sulfate 235 mg/ Dextrose 105.875 ml @ 105.875 mls/hr 1X ONCE 01/27/18 16:00 01/27/18 16:59 DC 01/27/18 19:56 105.875 MLS/HR Heparin Sodium (Porcine) (Hep Lock Adult) 500 unit 1X ONCE 01/29/18 14:00 01/29/18 14:17 DC 01/29/18 14:04 500 UNIT Hydralazine HCl (Apresoline) 10 mg PRN TID PRN 01/28/18 14:45 Hydromorphone HCl (Dilaudid) 0.5 mg PRN Q10MIN PRN 02/05/18 07:00 02/06/18 06:59 DC Influenza Virus Vaccine (Afluria Trivalent [id number] Syringe) 0.5 ml ONCE ONCE 01/27/18 09:00 01/27/18 09:01 DC 01/27/18 09:00 0.5 ML Info (PHARMACY MONITORING -- do not chart) 1 each PRN DAILY PRN 02/06/18 08:15 UNV Insulin Glargine (Lantus) 22 units QHS 01/27/18 21:00 02/06/18 22:21 8 UNITS Insulin Human Lispro (HumaLOG) 0-5 UNITS TIDWMEALS 01/28/18 17:00 02/07/18 09:07 2 UNITS Lactobacillus Rhamnosus (Culturelle) 1 cap BID 01/27/18 21:00 02/08/18 08:58 1 CAP Lidocaine (Lidoderm) 1 patch PRN DAILY PRN 01/27/18 09:00 Lidocaine HCl (Lidocaine 1% 50ml Vial) 50 ml 1X ONCE 01/30/18 15:45 01/30/18 15:46 DC Lidocaine HCl (Xylocaine 1% Pf 30ml Vial) 30 ml 1X ONCE 02/01/18 13:15 02/01/18 13:18 DC Lidocaine HCl (Xylocaine-Mpf 1% 2ml Vial) 2 ml 1X ONCE 02/06/18 08:30 02/06/18 08:31 DC 02/06/18 08:30 2 ML Lidocaine HCl (Xylocaine-Mpf 2% Vial) 2 ml STK-MED ONCE 02/06/18 09:00 02/08/18 07:54 DC Lidocaine/ Epinephrine (LIDOCAINE 1%-EPI 1:100,000 Multi-Dose) 8 ml 1X ONCE 01/29/18 14:00 01/29/18 14:17 DC 01/29/18 14:01 8 ML Metronidazole 100 ml @ 100 mls/hr Q12HR 01/28/18 10:00 02/03/18 10:49 DC 02/02/18 21:00 100 MLS/HR Midazolam HCl (Versed) 2 mg STK-MED ONCE 02/01/18 14:25 02/01/18 14:26 DC Miscellaneous (Lidoderm Patch Removal) 1 ea QHS 01/27/18 21:00 02/05/18 20:57 1 EA Morphine Sulfate (Morphine Sulfate) 1 mg PRN Q10MIN PRN 02/05/18 07:00 02/06/18 06:59 DC Morphine Sulfate (Ms Contin) 15 mg BID 01/27/18 12:30 02/08/18 08:56 15 MG Niacin (Slo-Niacin) 500 mg QHS 01/27/18 21:00 02/07/18 21:10 500 MG Nitroglycerin (Nitrostat) 0.4 mg PRN Q5MIN PRN 01/27/18 12:00 Non-Formulary Medication (Albuterol Sulfate (Proventil Hfa Inhaler)) 2 puff BID PRN 01/27/18 12:00 UNV Non-Formulary Medication (Fluconazole (Diflucan)) 100 mg PRN 01/27/18 12:00 UNV Nystatin (Nystop) 1 erich PRN BID PRN 01/27/18 12:00 Ondansetron HCl (Zofran Odt) 4 mg PRN Q6HRS PRN 01/27/18 12:15 02/07/18 16:53 4 MG Ondansetron HCl (Zofran) 4 mg STK-MED ONCE 02/01/18 14:25 02/01/18 14:26 DC Oxycodone/ Acetaminophen (Percocet 10/325) 1 tab PRN Q4HRS PRN 01/29/18 07:45 02/03/18 10:48 1 TAB Pharmacy Consult (C.diff Med Screen By Rx) 1 each 1X ONCE 01/27/18 01:00 01/27/18 01:01 Cancel Prochlorperazine Edisylate (Compazine) 5 mg PACU PRN PRN 02/05/18 07:00 02/06/18 06:59 DC Promethazine HCl (Phenergan Im) 12.5 mg 1X ONCE 01/29/18 12:45 01/29/18 12:46 DC Promethazine HCl (Phenergan Supp) 12.5 mg 1X ONCE 01/29/18 12:15 01/29/18 12:36 DC Propofol 20 ml @ As Directed STK-MED ONCE 02/05/18 12:08 02/05/18 12:09 DC Ringer's Solution 1,000 ml @ 30 mls/hr Q24H 02/05/18 07:00 02/05/18 18:59 DC Sevoflurane (Ultane) 30 ml STK-MED ONCE 01/27/18 13:11 01/27/18 13:12 DC Sodium Chloride 1,000 ml @ 400 mls/hr Q2H30M PRN 02/06/18 08:12 02/06/18 20:11 DC Sodium Chloride (Normal Saline Flush) 10 ml 1X PRN PRN 01/30/18 13:15 01/31/18 13:14 DC Ticagrelor (Brilinta) 90 mg BID 01/28/18 21:00 02/08/18 08:56 90 MG Tramadol HCl (Ultram) 50 mg PRN Q4HRS PRN 01/27/18 12:00 02/08/18 04:36 50 MG Vancomycin HCl (Vanco Per Pharmacy) 1 each PRN DAILY PRN 02/05/18 12:00 02/07/18 13:36 1 EACH Vancomycin HCl (Vancomycin Random Level) 1 each 1X ONCE 02/08/18 05:00 02/08/18 05:01 DC 02/08/18 05:00 1 EACH Vancomycin HCl 1.5 gm/Sodium Chloride 500 ml @ 250 mls/hr 1X ONCE 02/05/18 14:00 02/05/18 15:59 DC 02/05/18 14:05 250 MLS/HR Vancomycin HCl 1.75 gm/Sodium Chloride 500 ml @ 250 mls/hr 1X ONCE 01/26/18 23:00 01/27/18 00:59 DC 01/26/18 23:53 250 MLS/HR Vancomycin HCl 500 mg/Sodium Chloride 100 ml @ 100 mls/hr QTUTHSA 02/02/18 16:00 02/04/18 12:02 DC 02/02/18 16:15 100 MLS/HR Vitamin B Complex/ Vitamin C (Melly-Shabbir) 1 tab DAILY 01/27/18 12:30 02/08/18 08:54 1 TAB Lab Laboratory Tests Test 02/07/18 11:31 02/07/18 16:33 02/07/18 20:31 02/08/18 03:30 Glucose (Fingerstick) 108 mg/dL (70-99) 99 mg/dL (70-99) 92 mg/dL (70-99) White Blood Count 16.5 x10^3/uL (4.0-11.0) Red Blood Count 2.38 x10^6/uL (3.50-5.40) Hemoglobin 7.6 g/dL (12.0-15.5) Hematocrit 22.4 % (36.0-47.0) Mean Corpuscular Volume 94 fL (79-100) Mean Corpuscular Hemoglobin 32 pg (25-35) Mean Corpuscular Hemoglobin Concent 34 g/dL (31-37) Red Cell Distribution Width 16.7 % (11.5-14.5) Platelet Count 348 x10^3/uL (140-400) Neutrophils (%) (Auto) 86 % (31-73) Lymphocytes (%) (Auto) 7 % (24-48) Monocytes (%) (Auto) 7 % (0-9) Eosinophils (%) (Auto) 0 % (0-3) Basophils (%) (Auto) 0 % (0-3) Neutrophils # (Auto) 14.2 x10^3uL (1.8-7.7) Lymphocytes # (Auto) 1.1 x10^3/uL (1.0-4.8) Monocytes # (Auto) 1.1 x10^3/uL (0.0-1.1) Eosinophils # (Auto) 0.1 x10^3/uL (0.0-0.7) Basophils # (Auto) 0.0 x10^3/uL (0.0-0.2) Sodium Level 142 mmol/L (136-145) Potassium Level 3.8 mmol/L (3.5-5.1) Chloride Level 104 mmol/L (98-107) Carbon Dioxide Level 30 mmol/L (21-32) Anion Gap 8 (6-14) Blood Urea Nitrogen 23 mg/dL (7-20) Creatinine 4.2 mg/dL (0.6-1.0) Estimated GFR (Cockcroft-Gault) 11.1 BUN/Creatinine Ratio 5 (6-20) Glucose Level 170 mg/dL (70-99) Calcium Level 8.3 mg/dL (8.5-10.1) Total Bilirubin 0.4 mg/dL (0.2-1.0) Aspartate Amino Transf (AST/SGOT) 15 U/L (15-37) Alanine Aminotransferase (ALT/SGPT) 13 U/L (14-59) Alkaline Phosphatase 91 U/L (46-116) Total Protein 5.0 g/dL (6.4-8.2) Albumin 2.0 g/dL (3.4-5.0) Albumin/Globulin Ratio 0.7 (1.0-1.7) Random Vancomycin Level 20.4 mcg/mL Test 02/08/18 08:11 Glucose (Fingerstick) 120 mg/dL (70-99) Results All relevant outside records, renal labs, imaging studies, telemetry/EKG's were reviewed. HEMANT SCHAEFER MD Feb 08, 2018 10:46
--- NOTE | 2018-02-08 11:44 | PDOC ---
Subjective: Subjective: Nausea and retching, didn't eat this morning. Objective: Objective: Reviewed w/ RN - nausea, possible DC tomorrow. On IV H2 bulmaro, PO e-mycin, Dilaudid, Percocet. No stools charted. Vital Signs: Vital Signs Date Time Temp Pulse Resp B/P (MAP) Pulse Ox O2 Delivery O2 Flow Rate FiO2 02/08/18 09:00 Room Air 02/08/18 08:57 72 119/48 02/08/18 08:56 19 02/08/18 07:00 97.7 99 2.0 97.7 Labs: Laboratory Tests Test 02/07/18 16:33 02/07/18 20:31 02/08/18 03:30 02/08/18 08:11 Glucose (Fingerstick) 99 mg/dL 92 mg/dL 120 mg/dL White Blood Count 16.5 x10^3/uL Red Blood Count 2.38 x10^6/uL Hemoglobin 7.6 g/dL Hematocrit 22.4 % Mean Corpuscular Volume 94 fL Mean Corpuscular Hemoglobin 32 pg Mean Corpuscular Hemoglobin Concent 34 g/dL Red Cell Distribution Width 16.7 % Platelet Count 348 x10^3/uL Neutrophils (%) (Auto) 86 % Lymphocytes (%) (Auto) 7 % Monocytes (%) (Auto) 7 % Eosinophils (%) (Auto) 0 % Basophils (%) (Auto) 0 % Neutrophils # (Auto) 14.2 x10^3uL Lymphocytes # (Auto) 1.1 x10^3/uL Monocytes # (Auto) 1.1 x10^3/uL Eosinophils # (Auto) 0.1 x10^3/uL Basophils # (Auto) 0.0 x10^3/uL Sodium Level 142 mmol/L Potassium Level 3.8 mmol/L Chloride Level 104 mmol/L Carbon Dioxide Level 30 mmol/L Anion Gap 8 Blood Urea Nitrogen 23 mg/dL Creatinine 4.2 mg/dL Estimated GFR (Cockcroft-Gault) 11.1 BUN/Creatinine Ratio 5 Glucose Level 170 mg/dL Calcium Level 8.3 mg/dL Total Bilirubin 0.4 mg/dL Aspartate Amino Transf (AST/SGOT) 15 U/L Alanine Aminotransferase (ALT/SGPT) 13 U/L Alkaline Phosphatase 91 U/L Total Protein 5.0 g/dL Albumin 2.0 g/dL Albumin/Globulin Ratio 0.7 Random Vancomycin Level 20.4 mcg/mL Imaging: EGD 02/05 non-erosive gastritis PE: GEN: NAD, talking on phone LUNGS: coarse - better HEART: RRR ABD: S/ND/NT EXTREM: RLE wound NEURO/PSYCH: A & O 3, flat A/P: PAD s/p RLE bypass/infection/debridement - gets Dilaudid and Percocet for leg pain Chronic anemia - stable Chronic nausea w/ h/o gastroparesis and GERD - on erythromycin and IV H2 bulmaro -- Chronic nausea. Change acid-telephonic case manager to PO. ?stooling - add Miralax - consider Amitiza, Relistor, etc. if indicated. EDDY IGLESIAS Feb 08, 2018 11:44
[2018-02-08] MEDS: POLYETHYLENE GLYCOL 3350 17 GM PACKET. PO SCH (12:26)
--- NOTE | 2018-02-08 13:14 | PDOC ---
Infectious Disease Note Subjective Subjective No fever last 24 hours c/o N/V for 24 hours but some better No Rash Right groin pain-stable Vital Sign Vital Signs Vital Signs Date Time Temp Pulse Resp B/P (MAP) Pulse Ox O2 Delivery O2 Flow Rate FiO2 02/08/18 12:27 19 Room Air 02/08/18 11:00 98.1 70 158/27 (70) 100 2.0 98.1 Physical Exam PHYSICAL EXAM GENERAL: Propped up in bed, alert LUNGS: Clear. HEART: S1, S2 regular. ABDOMEN: Soft, NT EXTREMITIES: Left BKA. RLE less swollen and red; + wrinkles. Incision well-approx w/ alberto. Wound very clean and granulating. Heel without wound NEUROLOGIC: Alert and responds appropriately SKIN: without rash Tunnelled RIJ (01/29) clean Left chest line is clean Labs Lab Laboratory Tests Test 02/07/18 16:33 02/07/18 20:31 02/08/18 03:30 02/08/18 08:11 Glucose (Fingerstick) 99 mg/dL (70-99) 92 mg/dL (70-99) 120 mg/dL (70-99) White Blood Count 16.5 x10^3/uL (4.0-11.0) Red Blood Count 2.38 x10^6/uL (3.50-5.40) Hemoglobin 7.6 g/dL (12.0-15.5) Hematocrit 22.4 % (36.0-47.0) Mean Corpuscular Volume 94 fL (79-100) Mean Corpuscular Hemoglobin 32 pg (25-35) Mean Corpuscular Hemoglobin Concent 34 g/dL (31-37) Red Cell Distribution Width 16.7 % (11.5-14.5) Platelet Count 348 x10^3/uL (140-400) Neutrophils (%) (Auto) 86 % (31-73) Lymphocytes (%) (Auto) 7 % (24-48) Monocytes (%) (Auto) 7 % (0-9) Eosinophils (%) (Auto) 0 % (0-3) Basophils (%) (Auto) 0 % (0-3) Neutrophils # (Auto) 14.2 x10^3uL (1.8-7.7) Lymphocytes # (Auto) 1.1 x10^3/uL (1.0-4.8) Monocytes # (Auto) 1.1 x10^3/uL (0.0-1.1) Eosinophils # (Auto) 0.1 x10^3/uL (0.0-0.7) Basophils # (Auto) 0.0 x10^3/uL (0.0-0.2) Sodium Level 142 mmol/L (136-145) Potassium Level 3.8 mmol/L (3.5-5.1) Chloride Level 104 mmol/L (98-107) Carbon Dioxide Level 30 mmol/L (21-32) Anion Gap 8 (6-14) Blood Urea Nitrogen 23 mg/dL (7-20) Creatinine 4.2 mg/dL (0.6-1.0) Estimated GFR (Cockcroft-Gault) 11.1 BUN/Creatinine Ratio 5 (6-20) Glucose Level 170 mg/dL (70-99) Calcium Level 8.3 mg/dL (8.5-10.1) Total Bilirubin 0.4 mg/dL (0.2-1.0) Aspartate Amino Transf (AST/SGOT) 15 U/L (15-37) Alanine Aminotransferase (ALT/SGPT) 13 U/L (14-59) Alkaline Phosphatase 91 U/L (46-116) Total Protein 5.0 g/dL (6.4-8.2) Albumin 2.0 g/dL (3.4-5.0) Albumin/Globulin Ratio 0.7 (1.0-1.7) Vitamin B12 Level 653 pg/mL (247-911) Thyroid Stimulating Hormone (TSH) 3.684 uIU/mL (0.358-3.74) Random Vancomycin Level 20.4 mcg/mL Test 02/08/18 10:39 Glucose (Fingerstick) 107 mg/dL (70-99) Micro Klebsiella pneumoniae 4+ ANTIMICROBIAL SUSCEPTIBILITY Final Comment S = Susceptible; I = Intermediate; R = Resistant P = Positive; N = Negative MICS are expressed in micrograms per mL Antibiotic RSLT#1 RSLT#2 RSLT#3 RSLT#4 Amoxicillin/Clavulanic Acid S<=2 Ampicillin R>=32 Cefepime S<=0.12 Ceftriaxone S<=0.25 Cefuroxime S =4 Ciprofloxacin S =1 Ertapenem S<=0.12 Gentamicin S<=1 Imipenem S<=0.25 Levofloxacin S =1 Meropenem S<=0.25 Piperacillin/Tazobactam S<=4 Tetracycline S<=1 CONTINUED ON NEXT PAGE RUN DATE: 01/30/18 PAGE 2 RUN TIME: 5195 [facility] [address] [place] [address] Edward Kent M.D., [employer] SPEC: [id number] PATIENT: JAMAL BOSE [id number] ( Continued) Procedure Result ANTIMICROBIAL SUSCEPTIBILITY Final (continued) Tobramycin S<=1 Trimethoprim/Sulfa S<=20 01/26/18 Blood Culture - Preliminary, Resulted NO GROWTH AFTER 3 DAYS 01/27 ANAEROBIC RES 1 Preliminary No anaerobes recovered in 24 hours. AEROBIC RES 1 Preliminary Gram negative rods 01/26 AEROBIC RES 1 Preliminary Mixed site chinedu. GRAM STAIN RES 2 Final Many gram negative rods. GRAM STAIN RES 3 Final Gram positive cocci in pairs Objective Assessment Fever - better Leukocytosis ? reactive from GI bleed, Right leg surgery site infection s/p excisional debridement; muscle flap & wound VAC placement on 01/27. Klebsiella (R amp) - s/p repeat I and D on 02/01 - 01/26. gram stain: GPC and GNR -- mixed chinedu. PAD s/p leg bypass on 01/06 ESRD Multiple antibiotic allergies Amiodarone therapy h/o VRE, MRSA, c. diff Nausea and vomiting s/p EGD 02/05. non-erosive gastritis Anemia s/p PRBC Plan Plan of Care vanc and cefepime restarted 02/05 - clinically she says she feel better -Previously on Rocephin and Flagyl -s/p gent x 1 on 01/27 Trough 31.3 Probiotics BC from 02/05 NGTD Local wound care Supportive care LT[facility] soon D/w ALBERTO CARPENTER MD Feb 08, 2018 13:14
--- NOTE | 2018-02-08 13:35 | PDOC ---
SURGICAL PROGRESS NOTE Subjective pt without complaints. wound care nurses here for dressing change. Vital Signs Vital Signs Date Time Temp Pulse Resp B/P (MAP) Pulse Ox O2 Delivery O2 Flow Rate FiO2 02/08/18 12:27 19 Room Air 02/08/18 11:00 98.1 70 158/27 (70) 100 2.0 98.1 I&O Intake and Output 02/08/18 07:00 Intake Total 300 ml Balance 300 ml Intake Oral 300 ml # Voids 4 Extremities: Other (wound inspected. Excellent muscle viability. Some [place] exudate peripheral edges superior and medial. Should respond to further wound suction dressing. measurements recorded.) Labs Laboratory Tests Test 02/06/18 16:06 02/06/18 20:28 02/07/18 06:30 02/07/18 07:18 Glucose (Fingerstick) 119 mg/dL (70-99) 160 mg/dL (70-99) 187 mg/dL (70-99) White Blood Count 15.8 x10^3/uL (4.0-11.0) Red Blood Count 2.59 x10^6/uL (3.50-5.40) Hemoglobin 8.2 g/dL (12.0-15.5) Hematocrit 24.5 % (36.0-47.0) Mean Corpuscular Volume 95 fL (79-100) Mean Corpuscular Hemoglobin 32 pg (25-35) Mean Corpuscular Hemoglobin Concent 33 g/dL (31-37) Red Cell Distribution Width 16.8 % (11.5-14.5) Platelet Count 347 x10^3/uL (140-400) Neutrophils (%) (Auto) 81 % (31-73) Lymphocytes (%) (Auto) 9 % (24-48) Monocytes (%) (Auto) 9 % (0-9) Eosinophils (%) (Auto) 1 % (0-3) Basophils (%) (Auto) 1 % (0-3) Neutrophils # (Auto) 12.8 x10^3uL (1.8-7.7) Lymphocytes # (Auto) 1.4 x10^3/uL (1.0-4.8) Monocytes # (Auto) 1.4 x10^3/uL (0.0-1.1) Eosinophils # (Auto) 0.1 x10^3/uL (0.0-0.7) Basophils # (Auto) 0.1 x10^3/uL (0.0-0.2) Sodium Level 139 mmol/L (136-145) Potassium Level 3.9 mmol/L (3.5-5.1) Chloride Level 103 mmol/L (98-107) Carbon Dioxide Level 28 mmol/L (21-32) Anion Gap 8 (6-14) Blood Urea Nitrogen 18 mg/dL (7-20) Creatinine 3.4 mg/dL (0.6-1.0) Estimated GFR (Cockcroft-Gault) 14.2 BUN/Creatinine Ratio 5 (6-20) Glucose Level 209 mg/dL (70-99) Calcium Level 8.4 mg/dL (8.5-10.1) Total Bilirubin 0.4 mg/dL (0.2-1.0) Aspartate Amino Transf (AST/SGOT) 16 U/L (15-37) Alanine Aminotransferase (ALT/SGPT) 12 U/L (14-59) Alkaline Phosphatase 128 U/L (46-116) Total Protein 5.3 g/dL (6.4-8.2) Albumin 2.1 g/dL (3.4-5.0) Albumin/Globulin Ratio 0.7 (1.0-1.7) Test 02/07/18 11:31 02/07/18 16:33 02/07/18 20:31 02/08/18 03:30 Glucose (Fingerstick) 108 mg/dL (70-99) 99 mg/dL (70-99) 92 mg/dL (70-99) White Blood Count 16.5 x10^3/uL (4.0-11.0) Red Blood Count 2.38 x10^6/uL (3.50-5.40) Hemoglobin 7.6 g/dL (12.0-15.5) Hematocrit 22.4 % (36.0-47.0) Mean Corpuscular Volume 94 fL (79-100) Mean Corpuscular Hemoglobin 32 pg (25-35) Mean Corpuscular Hemoglobin Concent 34 g/dL (31-37) Red Cell Distribution Width 16.7 % (11.5-14.5) Platelet Count 348 x10^3/uL (140-400) Neutrophils (%) (Auto) 86 % (31-73) Lymphocytes (%) (Auto) 7 % (24-48) Monocytes (%) (Auto) 7 % (0-9) Eosinophils (%) (Auto) 0 % (0-3) Basophils (%) (Auto) 0 % (0-3) Neutrophils # (Auto) 14.2 x10^3uL (1.8-7.7) Lymphocytes # (Auto) 1.1 x10^3/uL (1.0-4.8) Monocytes # (Auto) 1.1 x10^3/uL (0.0-1.1) Eosinophils # (Auto) 0.1 x10^3/uL (0.0-0.7) Basophils # (Auto) 0.0 x10^3/uL (0.0-0.2) Sodium Level 142 mmol/L (136-145) Potassium Level 3.8 mmol/L (3.5-5.1) Chloride Level 104 mmol/L (98-107) Carbon Dioxide Level 30 mmol/L (21-32) Anion Gap 8 (6-14) Blood Urea Nitrogen 23 mg/dL (7-20) Creatinine 4.2 mg/dL (0.6-1.0) Estimated GFR (Cockcroft-Gault) 11.1 BUN/Creatinine Ratio 5 (6-20) Glucose Level 170 mg/dL (70-99) Calcium Level 8.3 mg/dL (8.5-10.1) Total Bilirubin 0.4 mg/dL (0.2-1.0) Aspartate Amino Transf (AST/SGOT) 15 U/L (15-37) Alanine Aminotransferase (ALT/SGPT) 13 U/L (14-59) Alkaline Phosphatase 91 U/L (46-116) Total Protein 5.0 g/dL (6.4-8.2) Albumin 2.0 g/dL (3.4-5.0) Albumin/Globulin Ratio 0.7 (1.0-1.7) Vitamin B12 Level 653 pg/mL (247-911) Thyroid Stimulating Hormone (TSH) 3.684 uIU/mL (0.358-3.74) Random Vancomycin Level 20.4 mcg/mL Test 02/08/18 08:11 02/08/18 10:39 Glucose (Fingerstick) 120 mg/dL (70-99) 107 mg/dL (70-99) Laboratory Tests Test 02/07/18 16:33 02/07/18 20:31 02/08/18 03:30 02/08/18 08:11 Glucose (Fingerstick) 99 mg/dL (70-99) 92 mg/dL (70-99) 120 mg/dL (70-99) White Blood Count 16.5 x10^3/uL (4.0-11.0) Red Blood Count 2.38 x10^6/uL (3.50-5.40) Hemoglobin 7.6 g/dL (12.0-15.5) Hematocrit 22.4 % (36.0-47.0) Mean Corpuscular Volume 94 fL (79-100) Mean Corpuscular Hemoglobin 32 pg (25-35) Mean Corpuscular Hemoglobin Concent 34 g/dL (31-37) Red Cell Distribution Width 16.7 % (11.5-14.5) Platelet Count 348 x10^3/uL (140-400) Neutrophils (%) (Auto) 86 % (31-73) Lymphocytes (%) (Auto) 7 % (24-48) Monocytes (%) (Auto) 7 % (0-9) Eosinophils (%) (Auto) 0 % (0-3) Basophils (%) (Auto) 0 % (0-3) Neutrophils # (Auto) 14.2 x10^3uL (1.8-7.7) Lymphocytes # (Auto) 1.1 x10^3/uL (1.0-4.8) Monocytes # (Auto) 1.1 x10^3/uL (0.0-1.1) Eosinophils # (Auto) 0.1 x10^3/uL (0.0-0.7) Basophils # (Auto) 0.0 x10^3/uL (0.0-0.2) Sodium Level 142 mmol/L (136-145) Potassium Level 3.8 mmol/L (3.5-5.1) Chloride Level 104 mmol/L (98-107) Carbon Dioxide Level 30 mmol/L (21-32) Anion Gap 8 (6-14) Blood Urea Nitrogen 23 mg/dL (7-20) Creatinine 4.2 mg/dL (0.6-1.0) Estimated GFR (Cockcroft-Gault) 11.1 BUN/Creatinine Ratio 5 (6-20) Glucose Level 170 mg/dL (70-99) Calcium Level 8.3 mg/dL (8.5-10.1) Total Bilirubin 0.4 mg/dL (0.2-1.0) Aspartate Amino Transf (AST/SGOT) 15 U/L (15-37) Alanine Aminotransferase (ALT/SGPT) 13 U/L (14-59) Alkaline Phosphatase 91 U/L (46-116) Total Protein 5.0 g/dL (6.4-8.2) Albumin 2.0 g/dL (3.4-5.0) Albumin/Globulin Ratio 0.7 (1.0-1.7) Vitamin B12 Level 653 pg/mL (247-911) Thyroid Stimulating Hormone (TSH) 3.684 uIU/mL (0.358-3.74) Random Vancomycin Level 20.4 mcg/mL Test 02/08/18 10:39 Glucose (Fingerstick) 107 mg/dL (70-99) Problem List Problems Medical Problems: (1) Chronic renal failure Status: Acute Assessment/Plan Imp: 1. status post right groin debridement, graft coverage with muscle flap, wound vac application. Pt doing well Plan: 1. cont. suction dressing 2. cont. antibx, for Klebsiella pneumonia 3. will continue to follow wound progress. No need for further debridement at this time. MAGDA ARIAS II, MD Feb 08, 2018 13:35
[2018-02-08] MEDS: VANCOMYCIN PER PHARMACY MC PRN (14:35)
[2018-02-08] MEDS: CEFEPIME HCL IV Push 1 GM VIAL. IVP SCH (14:49)
--- NOTE | 2018-02-08 15:23 | PDOC ---
PROGRESS NOTES Chief Complaint Chief Complaint RIght groin infection s/p i and d 02/01 with wound vac on, wound cx + Kpna recent right leg PAD s/p R fem to pop bypass ESRD on dialysis h/o L BKA CAD w/ hx CABG, EF 50% Diabetic retinopathy Macular degeneration Cataracts H/O CAD with multiple stents Leukocytosis post steroids - trending down Right lower extremity swelling with superficial skin breakdown from injury on with abrasion and subsequent redness and swelling, treated with outpatient Keflex End-stage renal disease, on dialysis via AV fistula here ,at home per pt is on PD. ANTIBIOTIC ALLERGY TO MEROPENEM, PIPERACILLIN AND TAZOBACTAM CAUSING PEELING AND BLEEDING OF THE SKIN. ALSO, SULFA. TOLERATES KEFLEX AND HAS BEEN ON CEFAZOLIN, THOUGH HAS CAUSED ITCHING. H/o recent urinary tract infection, though urine cultures are negative, on Cipro POA for 5 days. A- fib, amiodarone therapy Gastroparesis, E. Mycin Left retinal optic disc drusen, bl blurry vision EGD 02/05 non erosive gatritis plan: fu with id, vascular, renal, gi on wound vac on vanco and cefepime dc select mr danny home meds dvt ppx fu with ophthal as outpt History of Present Illness History of Present Illness Pt seen and examined Dw RN Sitting up right Improved demeanor Vitals Vitals Vital Signs Date Time Temp Pulse Resp B/P (MAP) Pulse Ox O2 Delivery O2 Flow Rate FiO2 02/08/18 12:56 17 Room Air 02/08/18 11:00 98.1 70 158/27 (70) 100 2.0 98.1 Physical Exam Physical Exam GENERAL: Propped up in bed, alert LUNGS: Clear. HEART: S1, S2 regular. ABDOMEN: Soft, NT EXTREMITIES: Left BKA. RLE less swollen and red; + wrinkles. Incision well-approx w/ alberto. Wound very clean and granulating. Heel without wound NEUROLOGIC: Alert and responds appropriately SKIN: without rash Tunnelled RIJ (01/29) clean Left chest line is clean General: Alert, Oriented X3, Cooperative, No acute distress Heart: Regular rate, Normal S1, Normal S2, No murmurs, Gallops Lungs: Wheezing Abdomen: Normal bowel sounds, Soft, No tenderness, No hepatosplenomegaly, No masses Extremities: Other (wound inspected. Excellent muscle viability. Some washburn exudate peripheral edges superior and medial. Should respond to further wound suction dressing. measurements recorded.) Skin: No breakdown, Other (dehiscence of the proximal right common femoral incision and vein harvest site with lower extremity edema and mild cellulitis) Labs LABS Laboratory Tests Test 02/07/18 16:33 02/07/18 20:31 02/08/18 03:30 02/08/18 08:11 Glucose (Fingerstick) 99 mg/dL (70-99) 92 mg/dL (70-99) 120 mg/dL (70-99) White Blood Count 16.5 x10^3/uL (4.0-11.0) Red Blood Count 2.38 x10^6/uL (3.50-5.40) Hemoglobin 7.6 g/dL (12.0-15.5) Hematocrit 22.4 % (36.0-47.0) Mean Corpuscular Volume 94 fL (79-100) Mean Corpuscular Hemoglobin 32 pg (25-35) Mean Corpuscular Hemoglobin Concent 34 g/dL (31-37) Red Cell Distribution Width 16.7 % (11.5-14.5) Platelet Count 348 x10^3/uL (140-400) Neutrophils (%) (Auto) 86 % (31-73) Lymphocytes (%) (Auto) 7 % (24-48) Monocytes (%) (Auto) 7 % (0-9) Eosinophils (%) (Auto) 0 % (0-3) Basophils (%) (Auto) 0 % (0-3) Neutrophils # (Auto) 14.2 x10^3uL (1.8-7.7) Lymphocytes # (Auto) 1.1 x10^3/uL (1.0-4.8) Monocytes # (Auto) 1.1 x10^3/uL (0.0-1.1) Eosinophils # (Auto) 0.1 x10^3/uL (0.0-0.7) Basophils # (Auto) 0.0 x10^3/uL (0.0-0.2) Sodium Level 142 mmol/L (136-145) Potassium Level 3.8 mmol/L (3.5-5.1) Chloride Level 104 mmol/L (98-107) Carbon Dioxide Level 30 mmol/L (21-32) Anion Gap 8 (6-14) Blood Urea Nitrogen 23 mg/dL (7-20) Creatinine 4.2 mg/dL (0.6-1.0) Estimated GFR (Cockcroft-Gault) 11.1 BUN/Creatinine Ratio 5 (6-20) Glucose Level 170 mg/dL (70-99) Calcium Level 8.3 mg/dL (8.5-10.1) Total Bilirubin 0.4 mg/dL (0.2-1.0) Aspartate Amino Transf (AST/SGOT) 15 U/L (15-37) Alanine Aminotransferase (ALT/SGPT) 13 U/L (14-59) Alkaline Phosphatase 91 U/L (46-116) Total Protein 5.0 g/dL (6.4-8.2) Albumin 2.0 g/dL (3.4-5.0) Albumin/Globulin Ratio 0.7 (1.0-1.7) Vitamin B12 Level 653 pg/mL (247-911) Thyroid Stimulating Hormone (TSH) 3.684 uIU/mL (0.358-3.74) Random Vancomycin Level 20.4 mcg/mL Test 02/08/18 10:39 Glucose (Fingerstick) 107 mg/dL (70-99) Assessment and Plan Assessmemt and Plan Problems Medical Problems: (1) Chronic renal failure Status: Acute Comment Review of Relevant I have reviewed the following items bert (where applicable) has been applied. Labs Laboratory Tests Test 02/06/18 16:06 02/06/18 20:28 02/07/18 06:30 02/07/18 07:18 Glucose (Fingerstick) 119 mg/dL (70-99) 160 mg/dL (70-99) 187 mg/dL (70-99) White Blood Count 15.8 x10^3/uL (4.0-11.0) Red Blood Count 2.59 x10^6/uL (3.50-5.40) Hemoglobin 8.2 g/dL (12.0-15.5) Hematocrit 24.5 % (36.0-47.0) Mean Corpuscular Volume 95 fL (79-100) Mean Corpuscular Hemoglobin 32 pg (25-35) Mean Corpuscular Hemoglobin Concent 33 g/dL (31-37) Red Cell Distribution Width 16.8 % (11.5-14.5) Platelet Count 347 x10^3/uL (140-400) Neutrophils (%) (Auto) 81 % (31-73) Lymphocytes (%) (Auto) 9 % (24-48) Monocytes (%) (Auto) 9 % (0-9) Eosinophils (%) (Auto) 1 % (0-3) Basophils (%) (Auto) 1 % (0-3) Neutrophils # (Auto) 12.8 x10^3uL (1.8-7.7) Lymphocytes # (Auto) 1.4 x10^3/uL (1.0-4.8) Monocytes # (Auto) 1.4 x10^3/uL (0.0-1.1) Eosinophils # (Auto) 0.1 x10^3/uL (0.0-0.7) Basophils # (Auto) 0.1 x10^3/uL (0.0-0.2) Sodium Level 139 mmol/L (136-145) Potassium Level 3.9 mmol/L (3.5-5.1) Chloride Level 103 mmol/L (98-107) Carbon Dioxide Level 28 mmol/L (21-32) Anion Gap 8 (6-14) Blood Urea Nitrogen 18 mg/dL (7-20) Creatinine 3.4 mg/dL (0.6-1.0) Estimated GFR (Cockcroft-Gault) 14.2 BUN/Creatinine Ratio 5 (6-20) Glucose Level 209 mg/dL (70-99) Calcium Level 8.4 mg/dL (8.5-10.1) Total Bilirubin 0.4 mg/dL (0.2-1.0) Aspartate Amino Transf (AST/SGOT) 16 U/L (15-37) Alanine Aminotransferase (ALT/SGPT) 12 U/L (14-59) Alkaline Phosphatase 128 U/L (46-116) Total Protein 5.3 g/dL (6.4-8.2) Albumin 2.1 g/dL (3.4-5.0) Albumin/Globulin Ratio 0.7 (1.0-1.7) Test 02/07/18 11:31 02/07/18 16:33 02/07/18 20:31 02/08/18 03:30 Glucose (Fingerstick) 108 mg/dL (70-99) 99 mg/dL (70-99) 92 mg/dL (70-99) White Blood Count 16.5 x10^3/uL (4.0-11.0) Red Blood Count 2.38 x10^6/uL (3.50-5.40) Hemoglobin 7.6 g/dL (12.0-15.5) Hematocrit 22.4 % (36.0-47.0) Mean Corpuscular Volume 94 fL (79-100) Mean Corpuscular Hemoglobin 32 pg (25-35) Mean Corpuscular Hemoglobin Concent 34 g/dL (31-37) Red Cell Distribution Width 16.7 % (11.5-14.5) Platelet Count 348 x10^3/uL (140-400) Neutrophils (%) (Auto) 86 % (31-73) Lymphocytes (%) (Auto) 7 % (24-48) Monocytes (%) (Auto) 7 % (0-9) Eosinophils (%) (Auto) 0 % (0-3) Basophils (%) (Auto) 0 % (0-3) Neutrophils # (Auto) 14.2 x10^3uL (1.8-7.7) Lymphocytes # (Auto) 1.1 x10^3/uL (1.0-4.8) Monocytes # (Auto) 1.1 x10^3/uL (0.0-1.1) Eosinophils # (Auto) 0.1 x10^3/uL (0.0-0.7) Basophils # (Auto) 0.0 x10^3/uL (0.0-0.2) Sodium Level 142 mmol/L (136-145) Potassium Level 3.8 mmol/L (3.5-5.1) Chloride Level 104 mmol/L (98-107) Carbon Dioxide Level 30 mmol/L (21-32) Anion Gap 8 (6-14) Blood Urea Nitrogen 23 mg/dL (7-20) Creatinine 4.2 mg/dL (0.6-1.0) Estimated GFR (Cockcroft-Gault) 11.1 BUN/Creatinine Ratio 5 (6-20) Glucose Level 170 mg/dL (70-99) Calcium Level 8.3 mg/dL (8.5-10.1) Total Bilirubin 0.4 mg/dL (0.2-1.0) Aspartate Amino Transf (AST/SGOT) 15 U/L (15-37) Alanine Aminotransferase (ALT/SGPT) 13 U/L (14-59) Alkaline Phosphatase 91 U/L (46-116) Total Protein 5.0 g/dL (6.4-8.2) Albumin 2.0 g/dL (3.4-5.0) Albumin/Globulin Ratio 0.7 (1.0-1.7) Vitamin B12 Level 653 pg/mL (247-911) Thyroid Stimulating Hormone (TSH) 3.684 uIU/mL (0.358-3.74) Random Vancomycin Level 20.4 mcg/mL Test 02/08/18 08:11 02/08/18 10:39 Glucose (Fingerstick) 120 mg/dL (70-99) 107 mg/dL (70-99) Laboratory Tests Test 02/07/18 16:33 02/07/18 20:31 02/08/18 03:30 02/08/18 08:11 Glucose (Fingerstick) 99 mg/dL (70-99) 92 mg/dL (70-99) 120 mg/dL (70-99) White Blood Count 16.5 x10^3/uL (4.0-11.0) Red Blood Count 2.38 x10^6/uL (3.50-5.40) Hemoglobin 7.6 g/dL (12.0-15.5) Hematocrit 22.4 % (36.0-47.0) Mean Corpuscular Volume 94 fL (79-100) Mean Corpuscular Hemoglobin 32 pg (25-35) Mean Corpuscular Hemoglobin Concent 34 g/dL (31-37) Red Cell Distribution Width 16.7 % (11.5-14.5) Platelet Count 348 x10^3/uL (140-400) Neutrophils (%) (Auto) 86 % (31-73) Lymphocytes (%) (Auto) 7 % (24-48) Monocytes (%) (Auto) 7 % (0-9) Eosinophils (%) (Auto) 0 % (0-3) Basophils (%) (Auto) 0 % (0-3) Neutrophils # (Auto) 14.2 x10^3uL (1.8-7.7) Lymphocytes # (Auto) 1.1 x10^3/uL (1.0-4.8) Monocytes # (Auto) 1.1 x10^3/uL (0.0-1.1) Eosinophils # (Auto) 0.1 x10^3/uL (0.0-0.7) Basophils # (Auto) 0.0 x10^3/uL (0.0-0.2) Sodium Level 142 mmol/L (136-145) Potassium Level 3.8 mmol/L (3.5-5.1) Chloride Level 104 mmol/L (98-107) Carbon Dioxide Level 30 mmol/L (21-32) Anion Gap 8 (6-14) Blood Urea Nitrogen 23 mg/dL (7-20) Creatinine 4.2 mg/dL (0.6-1.0) Estimated GFR (Cockcroft-Gault) 11.1 BUN/Creatinine Ratio 5 (6-20) Glucose Level 170 mg/dL (70-99) Calcium Level 8.3 mg/dL (8.5-10.1) Total Bilirubin 0.4 mg/dL (0.2-1.0) Aspartate Amino Transf (AST/SGOT) 15 U/L (15-37) Alanine Aminotransferase (ALT/SGPT) 13 U/L (14-59) Alkaline Phosphatase 91 U/L (46-116) Total Protein 5.0 g/dL (6.4-8.2) Albumin 2.0 g/dL (3.4-5.0) Albumin/Globulin Ratio 0.7 (1.0-1.7) Vitamin B12 Level 653 pg/mL (247-911) Thyroid Stimulating Hormone (TSH) 3.684 uIU/mL (0.358-3.74) Random Vancomycin Level 20.4 mcg/mL Test 02/08/18 10:39 Glucose (Fingerstick) 107 mg/dL (70-99) Microbiology 02/06/18 Blood Culture - Preliminary, Resulted NO GROWTH AFTER 2 DAYS 01/27/18 Anaerobic/Aerobic Culture - Final, Complete 01/27/18 Anaerobic Culture Result 1 (ROSALIND) - Final, Complete 01/27/18 Aerobic Culture - Final, Complete 01/27/18 Aerobic Culture Result 1 (ROSALIND) - Final, Complete 01/27/18 Antimicrobic Susceptibility - Final, Complete 01/27/18 Gram Stain - Final, Complete 01/27/18 Gram Stain Result 1 (ROSALIND) - Final, Complete 01/27/18 Gram Stain Result 2 (ROSALIND) - Final, Complete Medications Current Medications Hydromorphone HCl (Dilaudid) 2 mg 1X ONCE IV Last administered on 01/26/18at 22 :39; Start 01/26/18 at 22:00; Stop 01/26/18 at 22:01; Status DC Vancomycin HCl (Vanco Per Pharmacy) 1 each PRN DAILY PRN MC SEE COMMENTS Last administered on 01/31/18at 17:20; Start 01/26/18 at 22:45; Stop 02/01/18 at 11:41 ; Status DC Vancomycin HCl 1.75 gm/Sodium Chloride 500 ml @ 250 mls/hr 1X ONCE IV Last administered on 01/26/18at 23:53; Start 01/26/18 at 23:00; Stop 01/27/18 at 00:59 ; Status DC Ondansetron HCl (Zofran) 4 mg PRN Q8HRS PRN IV NAUSEA/VOMITING 1ST CHOICE; Start 01/26/18 at 23:15; Stop 01/27/18 at 23:14; Status DC Sodium Chloride 1,000 ml @ 75 mls/hr [id number] IV Last administered on at 00:39; Start 01/26/18 at 23:30; Stop 01/27/18 at 23:29; Status DC Pharmacy Consult (C.diff Med Screen By Rx) 1 each 1X ONCE MC ; Start 01/27/18 at 01:00; Stop 01/27/18 at 01:01; Status Cancel Influenza Virus Vaccine (Afluria Trivalent [id number] Syringe) 0.5 ml ONCE ONCE VAX IM Last administered on 01/27/18at 09:00; Start 01/27/18 at 09:00; Stop 01/27/18 at 09:01; Status DC Vancomycin HCl (Vancomycin Random Level) 1 each 1X ONCE MC Last administered on 01/28/18at 05:00; Start 01/28/18 at 05:00; Stop 01/28/18 at 05:01; Status DC Hydromorphone HCl (Dilaudid) 1 mg PRN Q3HRS PRN IV SEVERE PAIN Last administered on 02/08/18at 12:27; Start 01/27/18 at 03:30 Ondansetron HCl (Zofran) 4 mg PRN Q6HRS PRN IV NAUSEA/VOMITING; Start 01/27/18 at 10:45; Stop 01/27/18 at 18:00; Status DC Fentanyl Citrate (Fentanyl 2ml Vial) 25 mcg PRN Q5MIN PRN IV MILD PAIN; Start 01/27/18 at 10:45; Stop 01/27/18 at 18:00; Status DC Fentanyl Citrate (Fentanyl 2ml Vial) 50 mcg PRN Q5MIN PRN IV MODERATE TO SEVERE PAIN; Start 01/27/18 at 10:45; Stop 01/27/18 at 18:00; Status DC Morphine Sulfate (Morphine Sulfate) 1 mg PRN Q10MIN PRN IV SEVERE PAIN Last administered on 01/27/18at 16:28; Start 01/27/18 at 10:45; Stop 01/27/18 at 18:00 ; Status DC Ringer's Solution 1,000 ml @ 30 mls/hr Q24H IV Last administered on 01/27/18at 10:35; Start 01/27/18 at 10:35; Stop 01/27/18 at 19:36; Status DC Lidocaine HCl (Xylocaine-Mpf 1% 2ml Vial) 2 ml 1X PRN PRN ID IV START; Start 01/27/18 at 10:45; Stop 01/27/18 at 18:00; Status DC Hydromorphone HCl (Dilaudid) 0.5 mg PRN Q10MIN PRN IV SEV PAIN, Second choice Last administered on 01/27/18at 15:59; Start 01/27/18 at 10:45; Stop 01/27/18 at 18:00; Status DC Prochlorperazine Edisylate (Compazine) 5 mg PACU PRN PRN IV NAUSEA, MRX1; Start 01/27/18 at 10:45; Stop 01/27/18 at 18:00; Status DC Amiodarone HCl (Cordarone) 200 mg DAILY PO Last administered on 02/08/18at 08: 57; Start 01/27/18 at 12:30 Aspirin (Anthony Aspirin) 325 mg DAILY PO Last administered on 01/28/18at 09:13; Start 01/27/18 at 12:30; Stop 01/28/18 at 14:26; Status DC Carbamazepine (TEGretol) 200 mg BID PO Last administered on 02/08/18 08:55; Start 01/27/18 at 12:30 Carvedilol (Coreg) 12.5 mg BIDWMEALS PO Last administered on 02/08/18 08:54; Start 01/27/18 at 12:30 Vitamin B Complex/ Vitamin C (Melly-Shabbir) 1 tab DAILY PO Last administered on 08:54; Start 01/27/18 at 12:30 Furosemide (Lasix) 80 mg [id number] PO Last administered on 02/08/18 14:50; Start 01/27/18 at 12:30 Insulin Glargine (Lantus) 22 units QHS SQ Last administered on 02/06/18 22:21 ; Start 01/27/18 at 21:00 Morphine Sulfate (Ms Contin) 15 mg BID PO Last administered on 02/08/18 08:56 ; Start 01/27/18 at 12:30 Nitroglycerin (Nitrostat) 0.4 mg PRN Q5MIN PRN SL CHEST PAIN; Start 01/27/18 at 12:00 Nystatin (Nystop) 1 susanna PRN BID PRN TP SKIN BREAKDOWN; Start 01/27/18 at 12:00 Tramadol HCl (Ultram) 50 mg PRN Q4HRS PRN PO HEADACHE Last administered on 04:36; Start 01/27/18 at 12:00 Non-Formulary Medication (Albuterol Sulfate (Proventil Hfa Inhaler)) 2 puff BID PRN IH FOR ASTHMA; Start 01/27/18 at 12:00; Status UNV Atorvastatin Calcium (Lipitor) 80 mg QHS PO Last administered on 02/07/18 21: 10; Start 01/27/18 at 21:00 Calcitriol (Rocaltrol) 0.25 mcg DAILY PO Last administered on 02/08/18 08:53 ; Start 01/27/18 at 12:30 Diltiazem HCl (Cardizem 24hr Cd) 120 mg DAILY PO Last administered on 08:57; Start 01/27/18 at 12:30 Erythromycin (E-Mycin) 250 mg BID PO Last administered on 02/08/18at 08:54; Start 01/27/18 at 21:00 Fenofibrate (Lofibra) 134 mg QHS PO Last administered on 02/07/18at 21:10; Start 01/27/18 at 21:00 Non-Formulary Medication (Fluconazole (Diflucan)) 100 mg PRN PO ; Start at 12:00; Status UNV Lidocaine (Lidoderm) 1 patch PRN DAILY PRN TD PAIN; Start 01/27/18 at 09:00 Niacin (Slo-Niacin) 500 mg QHS PO Last administered on 02/07/18at 21:10; Start 01/27/18 at 21:00 Ondansetron HCl (Zofran Odt) 4 mg PRN Q6HRS PRN PO NAUSEA/VOMITING Last administered on 02/07/18 16:53; Start 01/27/18 at 12:15 Miscellaneous (Lidoderm Patch Removal) 1 ea QHS MC Last administered on at 20:57; Start 01/27/18 at 21:00 Albuterol Sulfate (Ventolin Neb Soln) 2.5 mg PRN BID PRN NEB SHORTNESS OF BREATH Last administered on 01/27/18at 21:59; Start 01/27/18 at 12:30 Lidocaine HCl (Lidocaine 1% 50ml Vial) 50 ml 1X ONCE INJ Last administered on 01/27/18at 14:06; Start 01/27/18 at 12:45; Stop 01/27/18 at 12:46; Status DC Hydromorphone HCl (Dilaudid) 2 mg STK-MED ONCE .ROUTE ; Start 01/27/18 at 12:36 ; Stop 01/27/18 at 12:38; Status DC Propofol 20 ml @ As Directed STK-MED ONCE IV ; Start 01/27/18 at 12:38; Stop at 12:39; Status DC Bacitracin 39399 unit/Sodium Chloride 3,000 ml @ 0 mls/hr 1X ONCE IR ; Start 01/27/18 at 13:15; Stop 01/27/18 at 13:16; Status Cancel Dexamethasone Sodium Phosphate (Decadron) 20 mg STK-MED ONCE .ROUTE ; Start 01/27/18 at 13:11; Stop 01/27/18 at 13:12; Status DC Ondansetron HCl (Zofran) 4 mg STK-MED ONCE .ROUTE ; Start 01/27/18 at 13:11; Stop 01/27/18 at 13:12; Status DC Sevoflurane (Ultane) 30 ml STK-MED ONCE IH ; Start 01/27/18 at 13:11; Stop 01/27 at 13:12; Status DC Bacitracin (Bacitracin) 50,000 unit STK-MED ONCE IRR Last administered on at 13:58; Start 01/27/18 at 12:14; Stop 01/27/18 at 13:16; Status DC Clopidogrel Bisulfate (Plavix) 75 mg DAILYWBKFT PO Last administered on at 09:13; Start 01/28/18 at 08:00; Stop 01/28/18 at 14:28; Status DC Hydromorphone HCl (Dilaudid) 2 mg STK-MED ONCE .ROUTE ; Start 01/27/18 at 15:38 ; Stop 01/27/18 at 15:40; Status DC Gentamicin Sulfate 235 mg/ Dextrose 105.875 ml @ 105.875 mls/hr 1X ONCE IV Last administered on 01/27/18at 19:56; Start 01/27/18 at 16:00; Stop 01/27/18 at 16:59; Status DC Lactobacillus Rhamnosus (Culturelle) 1 cap BID PO Last administered on at 08:58; Start 01/27/18 at 21:00 Cefepime HCl 1 gm/ Dextrose 50 ml @ 100 mls/hr DAILY IV ; Start 01/29/18 at 09: 00; Status UNV Metronidazole 100 ml @ 100 mls/hr Q12HR IV Last administered on 02/02/18at 21: 00; Start 01/28/18 at 10:00; Stop 02/03/18 at 10:49; Status DC Cefepime HCl (Maxipime) 1 gm Q24H IVP Last administered on 02/03/18at 10:54; Start 01/28/18 at 10:00; Stop 02/04/18 at 12:02; Status DC Lidocaine HCl (Xylocaine-Mpf 2% Vial) 2 ml STK-MED ONCE .ROUTE ; Start 01/28/18 at 11:41; Stop 01/28/18 at 11:42; Status DC Sodium Chloride 1,000 ml @ 1,000 mls/hr Q1H PRN IV hypotension; Start 01/28/18 at 12:09; Stop 01/28/18 at 18:08; Status DC Info (PHARMACY MONITORING -- do not chart) 1 each PRN DAILY PRN MC SEE COMMENTS ; Start 01/28/18 at 12:15; Status UNV Info (PHARMACY MONITORING -- do not chart) 1 each PRN DAILY PRN MC SEE COMMENTS ; Start 01/28/18 at 12:15; Stop 01/31/18 at 09:10; Status DC Lidocaine HCl (Xylocaine-Mpf 2% Vial) 2 ml 1X ONCE INJ ; Start 01/28/18 at 12: 15; Stop 01/28/18 at 12:21; Status DC Ticagrelor (Brilinta) 90 mg BID PO Last administered on 02/08/18at 08:56; Start 01/28/18 at 21:00 Diphenhydramine HCl (Benadryl) 25 mg PRN Q6HRS PRN PO ITCHING; Start 01/28/18 at 14:15 Aspirin (Ecotrin) 81 mg DAILYWBKFT PO Last administered on 02/08/18at 08:54; Start 01/29/18 at 08:00 Insulin Human Lispro (HumaLOG) 0-5 UNITS TIDWMEALS SQ Last administered on at 09:07; Start 01/28/18 at 17:00 Dextrose (Dextrose 50%-Water Syringe) 12.5 gm PRN Q15MIN PRN IV SEE COMMENTS Last administered on 02/05/18at 08:50; Start 01/28/18 at 14:45 Hydralazine HCl (Apresoline) 10 mg PRN TID PRN PO hypertension; Start 01/28/18 at 14:45 Oxycodone/ Acetaminophen (Percocet 10/325) 1 tab PRN Q4HRS PRN PO pain SEVERE Last administered on 02/03/18at 10:48; Start 01/29/18 at 07:45 Promethazine HCl (Phenergan Supp) 12.5 mg 1X ONCE FL ; Start 01/29/18 at 12:15 ; Stop 01/29/18 at 12:36; Status DC Promethazine HCl (Phenergan Im) 12.5 mg 1X ONCE IM ; Start 01/29/18 at 12:45; Stop 01/29/18 at 12:46; Status DC Lidocaine/ Epinephrine (LIDOCAINE 1%-EPI 1:100,000 Multi-Dose) 20 ml STK-MED ONCE .ROUTE ; Start 01/29/18 at 12:45; Stop 01/29/18 at 12:47; Status DC Heparin Sodium (Porcine) (Hep Lock Adult) 500 unit STK-MED ONCE IV ; Start 01/29 at 12:45; Stop 01/29/18 at 12:47; Status DC Morphine Sulfate (Morphine Sulfate) 10 mg STK-MED ONCE .ROUTE ; Start 01/29/18 at 13:23; Stop 01/29/18 at 13:25; Status DC Midazolam HCl (Versed) 2 mg STK-MED ONCE .ROUTE ; Start 01/29/18 at 13:23; Stop 01/29/18 at 13:25; Status DC Morphine Sulfate (Morphine Sulfate) 1 mg PRN Q10MIN PRN IV SEVERE PAIN Last administered on 02/01/18at 15:46; Start 02/01/18 at 07:00; Stop 02/02/18 at 06:59 ; Status DC Ringer's Solution 1,000 ml @ 30 mls/hr Q24H IV ; Start 02/01/18 at 07:00; Stop 02/01/18 at 18:59; Status DC Lidocaine HCl (Xylocaine-Mpf 1% 2ml Vial) 2 ml PRN 1X PRN ID PRIOR TO IV START ; Start 02/01/18 at 07:00; Stop 02/02/18 at 06:59; Status DC Hydromorphone HCl (Dilaudid) 0.5 mg PRN Q10MIN PRN IV SEV PAIN, Second choice Last administered on 02/01/18at 16:08; Start 02/01/18 at 07:00; Stop 02/02/18 at 06:59; Status DC Prochlorperazine Edisylate (Compazine) 5 mg PACU PRN PRN IV NAUSEA, MRX1; Start 02/01/18 at 07:00; Stop 02/02/18 at 06:59; Status DC Lidocaine/ Epinephrine (LIDOCAINE 1%-EPI 1:100,000 Multi-Dose) 8 ml 1X ONCE IJ Last administered on 01/29/18at 14:01; Start 01/29/18 at 14:00; Stop 01/29/18 at 14:17; Status DC Heparin Sodium (Porcine) (Hep Lock Adult) 500 unit 1X ONCE IV Last administered on 01/29/18at 14:04; Start 01/29/18 at 14:00; Stop 01/29/18 at 14:17 ; Status DC Morphine Sulfate (Morphine Sulfate) 5 mg 1X ONCE IV Last administered on at 14:01; Start 01/29/18 at 14:00; Stop 01/29/18 at 14:17; Status DC Ondansetron HCl (Zofran) 4 mg PRN Q6HRS PRN IV NAUSEA/VOMITING 1ST CHOICE Last administered on 02/02/18at 09:51; Start 01/29/18 at 14:45 Vancomycin HCl 500 mg/Sodium Chloride 100 ml @ 100 mls/hr 1X ONCE IV Last administered on 01/29/18at 21:04; Start 01/29/18 at 18:00; Stop 01/29/18 at 18:59 ; Status DC Sodium Chloride 1,000 ml @ 1,000 mls/hr Q1H PRN IV hypotension; Start 01/30/18 at 13:09; Stop 01/30/18 at 19:08; Status DC Sodium Chloride (Normal Saline Flush) 10 ml 1X PRN PRN IV AP catheter pack; Start 01/30/18 at 13:15; Stop 01/31/18 at 13:14; Status DC Sodium Chloride (Normal Saline Flush) 10 ml 1X PRN PRN IV HOME WORKER catheter pack; Start 01/30/18 at 13:15; Stop 01/31/18 at 13:14; Status DC Sodium Chloride 1,000 ml @ 400 mls/hr Q2H30M PRN IV PATENCY; Start 01/30/18 at 13:09; Stop 01/31/18 at 01:08; Status DC Info (PHARMACY MONITORING -- do not chart) 1 each PRN DAILY PRN MC SEE COMMENTS ; Start 01/30/18 at 13:15; Stop 01/30/18 at 13:17; Status DC Info (PHARMACY MONITORING -- do not chart) 1 each PRN DAILY PRN MC SEE COMMENTS ; Start 01/30/18 at 13:15; Stop 02/04/18 at 07:27; Status DC Lidocaine HCl (Lidocaine 1% 50ml Vial) 50 ml 1X ONCE INJ ; Start 01/30/18 at 15 :45; Stop 01/30/18 at 15:46; Status DC Vancomycin HCl 500 mg/Sodium Chloride 100 ml @ 100 mls/hr ONCE ONCE IV Last administered on 01/30/18at 20:49; Start 01/30/18 at 18:00; Stop 01/30/18 at 18:59 ; Status DC Cefazolin Sodium 1 gm/Sodium Chloride 500 ml @ 500 mls/hr 1X ONCE IRR ; Start 02/01/18 at 06:00; Stop 02/01/18 at 06:59; Status DC Lidocaine HCl (Xylocaine-Mpf 2% Vial) 2 ml STK-MED ONCE .ROUTE ; Start 01/28/18 at 12:00; Stop 02/01/18 at 08:30; Status DC Darbepoetin Mauricio (Aranesp) 60 mcg [id number] SQ Last administered on 02/01/18at 21 :38; Start 02/01/18 at 21:00 Cellulose (Surgicel Fibrillar 1x2) 1 each STK-MED ONCE .ROUTE ; Start 02/01/18 at 12:05; Stop 02/01/18 at 13:06; Status DC Lidocaine HCl (Xylocaine 1% Pf 30ml Vial) 30 ml 1X ONCE INJ ; Start 02/01/18 at 13:15; Stop 02/01/18 at 13:18; Status DC Sodium Chloride 1,000 ml @ 75 mls/hr [id number] IV Last administered on at 00:15; Start 02/01/18 at 13:45; Stop 02/02/18 at 16:43; Status DC Morphine Sulfate (Morphine Sulfate) 10 mg STK-MED ONCE .ROUTE ; Start 02/01/18 at 14:24; Stop 02/01/18 at 14:25; Status DC Midazolam HCl (Versed) 2 mg STK-MED ONCE .ROUTE ; Start 02/01/18 at 14:24; Stop 02/01/18 at 14:25; Status DC Midazolam HCl (Versed) 2 mg STK-MED ONCE .ROUTE ; Start 02/01/18 at 14:25; Stop 02/01/18 at 14:26; Status DC Propofol 20 ml @ As Directed STK-MED ONCE IV ; Start 02/01/18 at 14:25; Stop at 14:26; Status DC Dexamethasone Sodium Phosphate (Decadron) 20 mg STK-MED ONCE .ROUTE ; Start 02/01/18 at 14:25; Stop 02/01/18 at 14:26; Status DC Ondansetron HCl (Zofran) 4 mg STK-MED ONCE .ROUTE ; Start 02/01/18 at 14:25; Stop 02/01/18 at 14:26; Status DC Bacitracin (Bacitracin) 50,000 unit STK-MED ONCE IRR Last administered on at 14:55; Start 02/01/18 at 13:32; Stop 02/01/18 at 14:32; Status DC Vancomycin HCl 500 mg/Sodium Chloride 100 ml @ 100 mls/hr [id number] IV Last administered on 02/02/18at 16:15; Start 02/02/18 at 16:00; Stop 02/04/18 at 12: 02; Status DC Sodium Chloride 1,000 ml @ 1,000 mls/hr Q1H PRN IV hypotension; Start 02/02/18 at 09:39; Stop 02/02/18 at 15:38; Status DC Albumin Human 200 ml @ 200 mls/hr 1X PRN PRN IV Hypotension; Start 02/02/18 at 09:45; Stop 02/02/18 at 15:44; Status DC Sodium Chloride 1,000 ml @ 400 mls/hr Q2H30M PRN IV PATENCY; Start 02/02/18 at 09:39; Stop 02/02/18 at 21:38; Status DC Info (PHARMACY MONITORING -- do not chart) 1 each PRN DAILY PRN MC SEE COMMENTS ; Start 02/02/18 at 09:45; Stop 02/04/18 at 07:28; Status DC Info (PHARMACY MONITORING -- do not chart) 1 each PRN DAILY PRN MC SEE COMMENTS ; Start 02/02/18 at 09:45; Status UNV Prochlorperazine Edisylate (Compazine) 10 mg PRN Q6HRS PRN IV NAUSEA/VOMITING 2ND CHOICE Last administered on 02/02/18at 23:23; Start 02/02/18 at 11:30 Vancomycin HCl (Vanco Per Pharmacy) 1 each PRN DAILY PRN MC SEE COMMENTS Last administered on 02/02/18at 13:57; Start 02/02/18 at 14:00; Stop 02/04/18 at 12: 02; Status DC Famotidine (Pepcid Vial) 20 mg DAILY IVP Last administered on 02/08/18at 09:00 ; Start 02/03/18 at 10:00; Stop 02/08/18 at 11:45; Status DC Alteplase, Recombinant (Cathflo) 2 mg 1X ONCE INT CAT Last administered on 03/14at 02:56; Start 02/04/18 at 03:00; Stop 02/04/18 at 03:01; Status DC Sodium Chloride 1,000 ml @ 1,000 mls/hr Q1H PRN IV hypotension; Start at 07:15; Stop 02/04/18 at 13:14; Status DC Albumin Human 200 ml @ 200 mls/hr 1X PRN PRN IV Hypotension Last administered on 02/04/18at 11:26; Start 02/04/18 at 07:15; Stop 02/04/18 at 13:14; Status DC Acetaminophen (Tylenol) 500 mg 1X PRN PRN PO MILD PAIN / TEMP; Start 02/04/18 at 07:15; Stop 02/05/18 at 07:14; Status DC Diphenhydramine HCl (Benadryl) 25 mg 1X PRN PRN IV ITCHING; Start 02/04/18 at 07:15; Stop 02/05/18 at 07:14; Status DC Diphenhydramine HCl (Benadryl) 25 mg 1X PRN PRN IV ITCHING; Start 02/04/18 at 07:15; Stop 02/05/18 at 07:14; Status DC Sodium Chloride 1,000 ml @ 400 mls/hr Q2H30M PRN IV PATENCY; Start 02/04/18 at 07:15; Stop 02/04/18 at 19:14; Status DC Info (PHARMACY MONITORING -- do not chart) 1 each PRN DAILY PRN MC SEE COMMENTS ; Start 02/04/18 at 07:15 Lidocaine HCl (Xylocaine-Mpf 2% Vial) 2 ml STK-MED ONCE .ROUTE ; Start at 09:43; Stop 02/04/18 at 09:44; Status DC Docusate Sodium (Colace) 100 mg PRN DAILY PRN PO CONSTIPATION Last administered on 02/07/18at 22:13; Start 02/04/18 at 10:30 Ceftriaxone Sodium 2 gm/ Dextrose 100 ml @ 200 mls/hr Q24H IV Last administered on 02/04/18at 14:24; Start 02/04/18 at 13:00; Stop 02/05/18 at 11 :49; Status DC Morphine Sulfate (Morphine Sulfate) 1 mg PRN Q10MIN PRN IV SEVERE PAIN; Start 02/05/18 at 07:00; Stop 02/06/18 at 06:59; Status DC Ringer's Solution 1,000 ml @ 30 mls/hr Q24H IV ; Start 02/05/18 at 07:00; Stop 02/05/18 at 18:59; Status DC Lidocaine HCl (Xylocaine-Mpf 1% 2ml Vial) 2 ml PRN 1X PRN ID IV START; Start 02/05/18 at 07:00; Stop 02/06/18 at 06:59; Status DC Hydromorphone HCl (Dilaudid) 0.5 mg PRN Q10MIN PRN IV SEV PAIN, Second choice; Start 02/05/18 at 07:00; Stop 02/06/18 at 06:59; Status DC Prochlorperazine Edisylate (Compazine) 5 mg PACU PRN PRN IV NAUSEA, MRX1; Start 02/05/18 at 07:00; Stop 02/06/18 at 06:59; Status DC Lidocaine HCl (Xylocaine-Mpf 2% Vial) 2 ml STK-MED ONCE .ROUTE ; Start at 10:00; Stop 02/05/18 at 08:19; Status DC Sodium Chloride 1,000 ml @ 75 mls/hr [id number] IV Last administered on at 07:00; Start 02/05/18 at 10:30 Cefepime HCl 1 gm/ Dextrose 50 ml @ 100 mls/hr DAILY IV ; Start 02/06/18 at 09 :00; Status UNV Vancomycin HCl (Vanco Per Pharmacy) 1 each PRN DAILY PRN MC SEE COMMENTS Last administered on 02/08/18at 14:35; Start 02/05/18 at 12:00 Cefepime HCl (Maxipime) 1 gm Q24H IVP Last administered on 02/08/18at 14:49; Start 02/05/18 at 12:00 Propofol 20 ml @ As Directed STK-MED ONCE IV ; Start 02/05/18 at 12:08; Stop 02/05/18 at 12:09; Status DC Lidocaine HCl (Xylocaine-Mpf 2% Vial) 2 ml STK-MED ONCE .ROUTE ; Start at 12:08; Stop 02/05/18 at 12:09; Status DC Vancomycin HCl 1.5 gm/Sodium Chloride 500 ml @ 250 mls/hr 1X ONCE IV Last administered on 02/05/18at 14:05; Start 02/05/18 at 14:00; Stop 02/05/18 at 15 :59; Status DC Vancomycin HCl (Vancomycin Random Level) 1 each 1X ONCE MC Last administered on 02/06/18at 05:00; Start 02/06/18 at 05:00; Stop 02/06/18 at 05:01; Status DC Sodium Chloride 1,000 ml @ 1,000 mls/hr Q1H PRN IV hypotension; Start at 08:12; Stop 02/06/18 at 14:11; Status DC Sodium Chloride 1,000 ml @ 400 mls/hr Q2H30M PRN IV PATENCY; Start 02/06/18 at 08:12; Stop 02/06/18 at 20:11; Status DC Info (PHARMACY MONITORING -- do not chart) 1 each PRN DAILY PRN MC SEE COMMENTS ; Start 02/06/18 at 08:15; Status UNV Info (PHARMACY MONITORING -- do not chart) 1 each PRN DAILY PRN MC SEE COMMENTS ; Start 02/06/18 at 08:15; Status UNV Lidocaine HCl (Xylocaine-Mpf 1% 2ml Vial) 2 ml 1X ONCE ID Last administered on 02/06/18at 08:30; Start 02/06/18 at 08:30; Stop 02/06/18 at 08:31; Status DC Lidocaine HCl (Xylocaine-Mpf 2% Vial) 2 ml STK-MED ONCE .ROUTE ; Start at 08:32; Stop 02/06/18 at 08:33; Status DC Diphenhydramine HCl (Benadryl) 50 mg 1X ONCE IVP Last administered on at 09:10; Start 02/06/18 at 09:00; Stop 02/06/18 at 09:02; Status DC Vancomycin HCl (Vancomycin Random Level) 1 each 1X ONCE MC Last administered on 02/08/18at 05:00; Start 02/08/18 at 05:00; Stop 02/08/18 at 05:01; Status DC Lidocaine HCl (Xylocaine-Mpf 2% Vial) 2 ml STK-MED ONCE .ROUTE ; Start at 09:00; Stop 02/08/18 at 07:54; Status DC Polyethylene Glycol (miraLAX PACKET) 17 gm DAILY PO Last administered on at 12:26; Start 02/08/18 at 12:30 Famotidine (Pepcid) 20 mg QHS PO ; Start 02/08/18 at 21:00 Vancomycin HCl 500 mg/Sodium Chloride 100 ml @ 100 mls/hr QTUTHSA IV ; Start 02/09/18 at 16:00 Active Scripts Active Percocet 10-325 Mg Tablet (Oxycodone/Acetaminophen) 1 Each Tablet 1 Tab PO Q4HRS Brilinta (Ticagrelor) 90 Mg Tablet 90 Mg PO BID 30 Days Morphine Sulfate Er (Morphine Sulfate) 15 Mg Tablet.er 15 Mg PO BID Reported Brilinta (Ticagrelor) 90 Mg Tablet 90 Mg PO BID Lidocaine 1 Each Adh..patch 1 Each TP PRN DAILY PRN Calcitriol 0.25 Mcg Capsule 1 Cap PO DAILY Tegretol (Carbamazepine) 200 Mg Tablet 1 Tab PO BID Tramadol Hcl 50 Mg Tablet 50 Mg PO Q4HRS PRN Lantus Solostar (Insulin Glargine,Hum.rec.anlog) 100 Unit/1 Ml Insuln.pen 22 Unit SQ QHS Diflucan (Fluconazole) 100 Mg Tablet 100 Mg PO PRN Carvedilol 3.125 Mg Tablet 12.5 Mg PO BID Erythromycin (Erythromycin Base) 250 Mg Capsule.dr 250 Mg PO BID Cardizem Cd (Diltiazem Hcl) 180 Mg Cap.er.24h 120 Mg PO DAILY Amiodarone Hcl 200 Mg Tablet 1 Tab PO DAILY Nystatin 15 Gm Powder 1 Susanna TP PRN BID PRN Proventil Hfa Inhaler (Albuterol Sulfate) 6.7 Gm Hfa.aer.ad 2 Puff IH BID PRN Zofran (Ondansetron Hcl) 4 Mg Tablet 4 Mg PO Q6-8HRS PRN Nephro-Shabbir Tablet (Folic Acid/Vitamin B Comp W-C) 0.8 Mg Tablet 1 Tab PO DAILY Tricor (Fenofibrate Nanocrystallized) 145 Mg Tablet 1 Tab PO HS Lipitor (Atorvastatin Calcium) 80 Mg Tablet 80 Mg PO HS Niacin 500 Mg Tablet 500 Mg PO HS Novolog (Insulin Aspart) 100 Unit/1 Ml Cartridge 0 SQ TIDAC sliding scale Aspirin 325 Mg Tablet 325 Mg PO DAILY Furosemide 80 Mg Tablet 80 Mg PO BID Docusate Sodium 100 Mg Capsule 1 Cap PO PRN PRN Nitrostat (Nitroglycerin) 0.4 Mg Tab.subl 0.4 Mg SL PRN Q5MIN PRN Take as needed for chest pain Vitals/I & O Vital Sign - Last 24 Hours 02/07/18 02/07/18 02/07/18 02/07/18 15:25 15:50 16:21 16:22 Temp 97.3 97.3 Pulse 96 96 Resp 18 B/P (MAP) 126/45 (72) 127/53 Pulse Ox 100 99 100 O2 Delivery Room Air Room Air Room Air O2 Flow Rate 2.0 02/07/18 02/07/18 02/07/18 02/07/18 19:00 20:00 20:49 21:10 Temp 97.5 97.5 Pulse 72 Resp 17 B/P (MAP) 136/57 (83) Pulse Ox 96 100 100 O2 Delivery Room Air Room Air Room Air Room Air O2 Flow Rate 2.0 02/07/18 02/08/18 02/08/18 02/08/18 23:00 01:10 03:27 03:39 Temp 97.8 97.9 97.8 97.9 Pulse 64 75 Resp 16 16 B/P (MAP) 130/50 (76) 115/44 (67) Pulse Ox 97 97 97 100 O2 Delivery Room Air Room Air Nasal Cannula O2 Flow Rate 2.0 2.0 02/08/18 02/08/18 02/08/18 02/08/18 04:00 04:36 05:40 07:00 Temp 97.7 97.7 Pulse 72 Resp 18 B/P (MAP) 119/48 (71) Pulse Ox 100 100 100 99 O2 Delivery Nasal Cannula Nasal Cannula Nasal Cannula O2 Flow Rate 2.0 2.0 2.0 2.0 02/08/18 02/08/18 02/08/18 02/08/18 08:00 08:54 08:56 08:57 Pulse 72 72 Resp 19 B/P (MAP) 119/48 119/48 O2 Delivery Room Air Room Air 02/08/18 02/08/18 02/08/18 02/08/18 08:57 09:00 11:00 12:27 Temp 98.1 98.1 Pulse 72 70 Resp 17 19 B/P (MAP) 119/48 158/27 (70) Pulse Ox 100 O2 Delivery Room Air Nasal Cannula Room Air O2 Flow Rate 2.0 02/08/18 02/08/18 12:56 12:56 Resp 17 17 O2 Delivery Room Air Room Air Intake and Output 02/07/18 02/07/18 02/08/18 15:00 23:00 07:00 Intake Total 300 ml 0 ml Balance 300 ml 0 ml QUIN BARRY MD Feb 08, 2018 15:23
--- NOTE | 2018-02-08 18:22 | PDOC ---
PROGRESS NOTES Assessment Assessment IMPRESSION: Bilateral vision loss x 2 weeks, worse x 4 days. Diabetic retinal disease. Renal failure. DM x 30 years. CAD, s/p CABG. Anemia. Left BKA. Wounds. Right fem-pop bypass. RECOMMENDATIONS/PLAN: Continue ASA daily. Continue Lipitor HS. Control hyperglycemia. Treat medical diseases. See Ophthalmology. Past Medical History Cardiovascular: AFIB, CAD, CHF, HTN, [place], Hyperlipidemia, Other (heart murmur, peripheral vascular disease, deep venous thrombosis) Pulmonary: Asthma, Bronchitis, COPD, Pneumonia, Other (sleep apnea) CENTRAL NERVOUS SYSTEM: Periperal neuropathy GI: Irritable bowel disease, Peptic Ulcer disease, Other (C. difficile) Psych: Anxiety, Depression Musculoskeletal: low back pain (and neck pain), Osteoarthritis Rheumatologic: Fibromyalgia Renal/: Chronic renal failure (dialysis) Endocrine: Diabetes Dermatology: Other (various wounds, MRSA, VRE) Past Surgical History CABG, Cataract Removal, Hysterectomy, Other (Arnold-Chiari malformation repair, left below the knee application, right femoropopliteal bypass, arteriovenous shunt, coronary stent, right second and third toes amputations, arthroscopic knee surgery) Family History Cancer, CAD, DM Social History , quit smoking, rare alcohol, disabled, gets around in a wheelchair ALLERGY: Reviewed. MEDICATIONS: Refer to MAR REVIEW OF SYSTEMS: Constitutional: No malnutrition, weight loss, cachexia. Head: No traumatic brain or head injury. Skin: No edema, or rash. Ear: No infection. Eyes: Vision loss. Nose: No bleeding or purulent discharges. Hearing: No hearing decrease. Neck: No injury. Breast: No history of cancer, masses, or discharges. Cardiac: CAD, s/p CABG, HLD Pulmonary: No COPD.. GI: No GI Ulcer, GI bleeding. Urinary/genital: Renal failure. Endocrine: Diabetes Mellitus. Skeletomuscular: No muscular atrophy, deformity. Neurological: see HP. Psychiatric: Denies drug use/abuse. Otherwise, not [id number] review of systems. PHYSICAL EXAMINATION: General appearance in subacute distress. HEENT: Normocephalic and nontraumatic. Eyes, nose, ears, and throat are unremarkable. Neck is supple. No lymphadenopathy. No Crepitus. Cardiovascular: S1, S2, regular rate and rhythm. Pulmonary: Clear to auscultation bilaterally. Abdomen: Bowel sounds are positive. Abdomen is soft, nontender, and nondistended. Extremities: No rash, lesions. No restriction of range of motion NEUROLOGICAL EXAMINATION: Awake. Oriented to time, place and person. PERRL. EOMI. Can see fingers at 2 feet. CN: no focal findings. Muscle tone: within normal. Muscle strength: 4 DTR: 2- Plantar reflex: Neutral response on right side. Left BKA. Gait: Unable to walk. Sensory exam: no abnormal findings. No acute cerebellar signs elicited. F-T-N test fine. Objective Objective Vital Signs Date Time Temp Pulse Resp B/P (MAP) Pulse Ox O2 Delivery O2 Flow Rate FiO2 02/08/18 17:00 59 113/38 02/08/18 15:00 98.3 16 100 Nasal Cannula 2.0 98.3 Intake and Output 02/08/18 07:00 Intake Total 300 ml Balance 300 ml Intake Oral 300 ml # Voids 4 Vitals Signs Vitals VS - Last 72 Hours, by Label Date Time Temp Pulse Resp B/P (MAP) Pulse Ox O2 Delivery O2 Flow Rate FiO2 02/08/18 17:00 59 113/38 02/08/18 15:00 98.3 69 16 113/46 (68) 100 Nasal Cannula 2.0 98.3 02/08/18 12:56 17 Room Air 02/08/18 12:56 17 Room Air 02/08/18 12:27 19 Room Air 02/08/18 11:00 98.1 70 17 158/27 (70) 100 Nasal Cannula 2.0 98.1 02/08/18 09:00 Room Air 02/08/18 08:57 72 119/48 02/08/18 08:57 72 119/48 02/08/18 08:56 19 Room Air 02/08/18 08:54 72 119/48 02/08/18 08:00 Room Air 02/08/18 07:00 97.7 72 18 119/48 (71) 99 Nasal Cannula 2.0 97.7 02/08/18 05:40 100 Nasal Cannula 2.0 02/08/18 04:36 100 Nasal Cannula 2.0 02/08/18 04:00 100 2.0 02/08/18 03:39 97.9 75 16 115/44 (67) 100 Nasal Cannula 2.0 97.9 02/08/18 03:27 97 Room Air 02/08/18 01:10 97 2.0 02/07/18 23:00 97.8 64 16 130/50 (76) 97 Room Air 97.8 02/07/18 21:10 100 Room Air 02/07/18 20:49 100 Room Air 02/07/18 20:00 Room Air 02/07/18 19:00 97.5 72 17 136/57 (83) 96 Room Air 2.0 97.5 02/07/18 16:22 100 Room Air 02/07/18 16:21 96 127/53 02/07/18 15:50 97.3 96 18 126/45 (72) 99 Room Air 97.3 02/07/18 15:25 100 Room Air 2.0 02/07/18 13:23 100 Room Air 2.0 02/07/18 11:50 98.4 77 18 127/53 (77) 100 Room Air 98.4 02/07/18 10:12 98 Room Air 2.0 02/07/18 09:01 52 99/46 02/07/18 09:00 52 99/46 02/07/18 08:59 98 Room Air 2.0 02/07/18 08:30 Room Air 02/07/18 07:59 97.9 70 17 120/51 (74) 100 Room Air 97.9 Laboratory Laboratory Laboratory Tests Test 02/07/18 20:31 02/08/18 03:30 02/08/18 08:11 02/08/18 10:39 Glucose (Fingerstick) 92 mg/dL (70-99) 120 mg/dL (70-99) 107 mg/dL (70-99) White Blood Count 16.5 x10^3/uL (4.0-11.0) Red Blood Count 2.38 x10^6/uL (3.50-5.40) Hemoglobin 7.6 g/dL (12.0-15.5) Hematocrit 22.4 % (36.0-47.0) Mean Corpuscular Volume 94 fL (79-100) Mean Corpuscular Hemoglobin 32 pg (25-35) Mean Corpuscular Hemoglobin Concent 34 g/dL (31-37) Red Cell Distribution Width 16.7 % (11.5-14.5) Platelet Count 348 x10^3/uL (140-400) Neutrophils (%) (Auto) 86 % (31-73) Lymphocytes (%) (Auto) 7 % (24-48) Monocytes (%) (Auto) 7 % (0-9) Eosinophils (%) (Auto) 0 % (0-3) Basophils (%) (Auto) 0 % (0-3) Neutrophils # (Auto) 14.2 x10^3uL (1.8-7.7) Lymphocytes # (Auto) 1.1 x10^3/uL (1.0-4.8) Monocytes # (Auto) 1.1 x10^3/uL (0.0-1.1) Eosinophils # (Auto) 0.1 x10^3/uL (0.0-0.7) Basophils # (Auto) 0.0 x10^3/uL (0.0-0.2) Sodium Level 142 mmol/L (136-145) Potassium Level 3.8 mmol/L (3.5-5.1) Chloride Level 104 mmol/L (98-107) Carbon Dioxide Level 30 mmol/L (21-32) Anion Gap 8 (6-14) Blood Urea Nitrogen 23 mg/dL (7-20) Creatinine 4.2 mg/dL (0.6-1.0) Estimated GFR (Cockcroft-Gault) 11.1 BUN/Creatinine Ratio 5 (6-20) Glucose Level 170 mg/dL (70-99) Calcium Level 8.3 mg/dL (8.5-10.1) Total Bilirubin 0.4 mg/dL (0.2-1.0) Aspartate Amino Transf (AST/SGOT) 15 U/L (15-37) Alanine Aminotransferase (ALT/SGPT) 13 U/L (14-59) Alkaline Phosphatase 91 U/L (46-116) Total Protein 5.0 g/dL (6.4-8.2) Albumin 2.0 g/dL (3.4-5.0) Albumin/Globulin Ratio 0.7 (1.0-1.7) Vitamin B12 Level 653 pg/mL (247-911) Thyroid Stimulating Hormone (TSH) 3.684 uIU/mL (0.358-3.74) Random Vancomycin Level 20.4 mcg/mL Test 02/08/18 16:53 Glucose (Fingerstick) 125 mg/dL (70-99) Microbiology 02/06/18 Blood Culture - Preliminary, Resulted NO GROWTH AFTER 2 DAYS 01/27/18 Anaerobic/Aerobic Culture - Final, Complete 01/27/18 Anaerobic Culture Result 1 (ROSALIND) - Final, Complete 01/27/18 Aerobic Culture - Final, Complete 01/27/18 Aerobic Culture Result 1 (ROSALIND) - Final, Complete 01/27/18 Antimicrobic Susceptibility - Final, Complete 01/27/18 Gram Stain - Final, Complete 01/27/18 Gram Stain Result 1 (ROSALIND) - Final, Complete 01/27/18 Gram Stain Result 2 (ROSALIND) - Final, Complete Medication Medications Current Medications Famotidine (Pepcid) 20 mg QHS PO ; Start 02/08/18 at 21:00 Polyethylene Glycol (miraLAX PACKET) 17 gm DAILY PO Last administered on at 12:26; Start 02/08/18 at 12:30 Vancomycin HCl (Vancomycin Random Level) 1 each 1X ONCE MC Last administered on 02/08/18at 05:00; Start 02/08/18 at 05:00; Stop 02/08/18 at 05:01; Status DC Vancomycin HCl 500 mg/Sodium Chloride 100 ml @ 100 mls/hr QTUTHSA IV ; Start 02/09/18 at 16:00 Comment Review of Relevant I have reviewed the following items bert (where applicable) has been applied. KRAIG HUNT MD Feb 08, 2018 18:22
[2018-02-08] MEDS: INSULIN GLARGINE 300 UNITS/3 ML INSULN.PEN. SQ SCH (20:38)
[2018-02-08] MEDS: NIACIN ER 500 MG TABLET.ER PO SCH (20:39)
[2018-02-08] MEDS: ATORVASTATIN CALCIUM 40 MG TABLET. PO SCH (20:39)
[2018-02-08] MEDS: FAMOTIDINE 20 MG TABLET. PO SCH (20:39)
[2018-02-08] MEDS: FENOFIBRATE,MICRONIZED 134 MG CAPSULE PO SCH (20:40)
[2018-02-08] MEDS: DARBEPOETIN ALFA 60 MCG/0.3 ML DISP.SYRIN. SQ SCH (20:41)
[2018-02-08] MEDS: PATCH REMOVAL. MC SCH (21:00)
[2018-02-09] MEDS: HYDROmorphone 2 MG/ML VIAL IV PRN ×4 (02:34→23:01)
[2018-02-09] MEDS: oxyCODONE/APAP 10/325 1 TAB TABLET PO PRN ×2 (02:37→23:04)
[2018-02-09 03:54] VITALS: BP 126/52
[2018-02-09 05:35] LABS: BASO # 0.2 x10^3/uL (0.0-0.2); BASO % 1 % (0-3); EOS # 0.1 x10^3/uL (0.0-0.7); EOS % 0 % (0-3); HEMATOCRIT 23.8 % (36.0-47.0); HEMOGLOBIN 7.8 g/dL (12.0-15.5); LYMPH # 0.8 x10^3/uL (1.0-4.8); LYMPH % 4 % (24-48); MEAN CORPUSCULAR HEMOGLOBIN 32 pg (25-35); MEAN CORPUSCULAR HGB CONC 33 g/dL (31-37); MEAN CORPUSCULAR VOLUME 96 fL (79-100); MONO # 1.2 x10^3/uL (0.0-1.1); MONO % 7 % (0-9); NEUT # 16.6 x10^3uL (1.8-7.7); NEUT % 88 % (31-73); PLATELET COUNT 386 x10^3/uL (140-400); RED BLOOD COUNT 2.48 x10^6/uL (3.50-5.40)
[2018-02-09 05:48] LABS: ALBUMIN/GLOBULIN RATIO 0.6 (1.0-1.7); CALCIUM 8.3 mg/dL (8.5-10.1); CREATININE 5.2 mg/dL (0.6-1.0); GFR 8.7; POTASSIUM 4.4 mmol/L (3.5-5.1); TOTAL BILIRUBIN 0.5 mg/dL (0.2-1.0); TOTAL PROTEIN 5.2 g/dL (6.4-8.2)
[2018-02-09 07:00] VITALS: BP 120/56
[2018-02-09] MEDS: INSULIN LISPRO 300 UNITS/3 ML INSULN.PEN. SQ SCH ×3 (08:00→17:00)
[2018-02-09] MEDS ORDERED: IV NORMAL SALINE 1000ML BAG 1,000 ML IV PRN ×2 (08:21)
[2018-02-09] MEDS: ONDANSETRON PF 4 MG/2 ML VIAL. IV PRN (08:22)
[2018-02-09] MEDS ORDERED: DIALYSIS PATIENT. MC PRN ×2 (08:30)
[2018-02-09] MEDS ORDERED: diphenhydrAMINE 50 MG/ML VIAL IVP ONE (08:30)
[2018-02-09] MEDS ORDERED: LIDOCAINE 2% PF 2ML VIAL. ONE ×2 (08:40→09:00)
--- NOTE | 2018-02-09 09:36 | PDOC ---
Infectious Disease Note Subjective Subjective No fever last 24 hours c/o N/V now 48 hours but some better No Rash Right groin pain-stable No Rash/SOA/diarrhea ROS ROS o/w neg Vital Sign Vital Signs Vital Signs Date Time Temp Pulse Resp B/P (MAP) Pulse Ox O2 Delivery O2 Flow Rate FiO2 02/09/18 08:22 18 Room Air 02/09/18 07:00 98.1 73 120/56 (77) 98 98.1 02/08/18 15:00 2.0 Physical Exam PHYSICAL EXAM GENERAL: Propped up in bed, in HD - sleepy OC/Op- dry LUNGS: Clear. HEART: S1, S2 regular. ABDOMEN: Soft, NT, ND EXTREMITIES: Left BKA. RLE less swollen and red; + wrinkles. Incision well-approx w/ alberto. Wound very clean and granulating. Heel without wound NEUROLOGIC: Alert and responds slowly SKIN: without rash Tunnelled RIJ (01/29) clean Left chest line is clean Labs Lab Laboratory Tests Test 02/08/18 10:39 02/08/18 16:53 02/08/18 20:23 02/09/18 05:15 Glucose (Fingerstick) 107 mg/dL (70-99) 125 mg/dL (70-99) 111 mg/dL (70-99) White Blood Count 19.0 x10^3/uL (4.0-11.0) Red Blood Count 2.48 x10^6/uL (3.50-5.40) Hemoglobin 7.8 g/dL (12.0-15.5) Hematocrit 23.8 % (36.0-47.0) Mean Corpuscular Volume 96 fL (79-100) Mean Corpuscular Hemoglobin 32 pg (25-35) Mean Corpuscular Hemoglobin Concent 33 g/dL (31-37) Red Cell Distribution Width 17.0 % (11.5-14.5) Platelet Count 386 x10^3/uL (140-400) Neutrophils (%) (Auto) 88 % (31-73) Lymphocytes (%) (Auto) 4 % (24-48) Monocytes (%) (Auto) 7 % (0-9) Eosinophils (%) (Auto) 0 % (0-3) Basophils (%) (Auto) 1 % (0-3) Neutrophils # (Auto) 16.6 x10^3uL (1.8-7.7) Lymphocytes # (Auto) 0.8 x10^3/uL (1.0-4.8) Monocytes # (Auto) 1.2 x10^3/uL (0.0-1.1) Eosinophils # (Auto) 0.1 x10^3/uL (0.0-0.7) Basophils # (Auto) 0.2 x10^3/uL (0.0-0.2) Sodium Level 143 mmol/L (136-145) Potassium Level 4.4 mmol/L (3.5-5.1) Chloride Level 104 mmol/L (98-107) Carbon Dioxide Level 26 mmol/L (21-32) Anion Gap 13 (6-14) Blood Urea Nitrogen 30 mg/dL (7-20) Creatinine 5.2 mg/dL (0.6-1.0) Estimated GFR (Cockcroft-Gault) 8.7 BUN/Creatinine Ratio 6 (6-20) Glucose Level 117 mg/dL (70-99) Calcium Level 8.3 mg/dL (8.5-10.1) Total Bilirubin 0.5 mg/dL (0.2-1.0) Aspartate Amino Transf (AST/SGOT) 12 U/L (15-37) Alanine Aminotransferase (ALT/SGPT) 13 U/L (14-59) Alkaline Phosphatase 94 U/L (46-116) Total Protein 5.2 g/dL (6.4-8.2) Albumin 2.0 g/dL (3.4-5.0) Albumin/Globulin Ratio 0.6 (1.0-1.7) Test 02/09/18 07:37 Glucose (Fingerstick) 99 mg/dL (70-99) Micro Klebsiella pneumoniae 4+ ANTIMICROBIAL SUSCEPTIBILITY Final Comment S = Susceptible; I = Intermediate; R = Resistant P = Positive; N = Negative MICS are expressed in micrograms per mL Antibiotic RSLT#1 RSLT#2 RSLT#3 RSLT#4 Amoxicillin/Clavulanic Acid S<=2 Ampicillin R>=32 Cefepime S<=0.12 Ceftriaxone S<=0.25 Cefuroxime S =4 Ciprofloxacin S =1 Ertapenem S<=0.12 Gentamicin S<=1 Imipenem S<=0.25 Levofloxacin S =1 Meropenem S<=0.25 Piperacillin/Tazobactam S<=4 Tetracycline S<=1 CONTINUED ON NEXT PAGE RUN DATE: 01/30/18 PAGE 2 RUN TIME: [id number] [facility] [address] [place] [address] Edward Kent M.D., Manager Contact SPEC: [id number] PATIENT: JAMAL BOSE [id number] ( Continued) Procedure Result ANTIMICROBIAL SUSCEPTIBILITY Final (continued) Tobramycin S<=1 Trimethoprim/Sulfa S<=20 01/26/18 Blood Culture - Preliminary, Resulted NO GROWTH AFTER 3 DAYS 01/27 ANAEROBIC RES 1 Preliminary No anaerobes recovered in 24 hours. AEROBIC RES 1 Preliminary Gram negative rods 01/26 AEROBIC RES 1 Preliminary Mixed site chinedu. GRAM STAIN RES 2 Final Many gram negative rods. GRAM STAIN RES 3 Final Gram positive cocci in pairs Objective Assessment Fever - better - blood cult 02/06 neg Leukocytosis ? reactive from GI bleed,- depsite Vanc/Cefepime Mild encephalopathy - ? med related Right leg surgery site infection s/p excisional debridement; muscle flap & wound VAC placement on 01/27. Klebsiella (R amp) - s/p repeat I and D on 02/01 - 01/26. gram stain: GPC and GNR -- mixed chinedu. PAD s/p leg bypass on 01/06 ESRD Multiple antibiotic allergies Amiodarone therapy h/o VRE, MRSA, c. diff Nausea and vomiting s/p EGD 02/05. non-erosive gastritis Anemia s/p PRBC Plan Plan of Care D/c vanc and cefepime restarted 02/05 - clinically she says she feel better aside from N/V but WBC increasing Will dose Zyvox with h/o VRE/add Gent/restart Flagyl -Previously on Rocephin and Flagyl -s/p gent x 1 on 01/27 Check lipase Optho eval Abd U/S with h/o distended GB May need CT scan if WBC increase continues and etiology remains unclear and does not respond to abx change Probiotics BC from 02/05 NGTD Local wound care Supportive care LTAC soon but not today D/w ALBERTO CARPENTER MD Feb 09, 2018 09:36
--- NOTE | 2018-02-09 11:23 | PDOC ---
SUBJECTIVE ROS Seen on HD, tolerating well OBJECTIVE Vital Signs Vital Signs Date Time Temp Pulse Resp B/P (MAP) Pulse Ox O2 Delivery O2 Flow Rate FiO2 02/09/18 08:22 18 Room Air 02/09/18 07:00 98.1 73 120/56 (77) 98 98.1 02/08/18 15:00 2.0 I & 0 Intake and Output 02/09/18 07:00 Intake Total 600 ml Output Total 0 ml Balance 600 ml Intake Oral 600 ml Output Urine Total 0 ml PHYSICAL EXAM Physical Exam GENERAL: Propped up in bed, in HD HEENT - OM moist LUNGS: Clear. HEART: S1, S2 regular. ABDOMEN: Soft, NT, ND EXTREMITIES: Left BKA. RLE less swollen and red; + wrinkles. Incision well-approx w/ alberto. Wound very clean and granulating. Heel without wound NEUROLOGIC: Alert and responds slowly SKIN: without rash Tunnelled [facility] (01/29) clean Left chest line is clean DIAGNOSIS/ASSESSMENT Assessment & Plan ESRD -On PD at home Was on HD switched to PD On HD while inpatient , go back to PD when Home Seen on HD today, tolerating well, Continue as Ordered, DW box toe cutter Right femoral surgical site infection- s/p operative debridement with muscle flap. As per vascular and ID Anemia- Stable DM- as per primary DW Pt COMMENT/RELEVANT DATA Meds Current Medications Medications (Trade) Dose Ordered Sig/Martin Start Time Stop Time Status Last Admin Dose Admin Acetaminophen (Tylenol) 500 mg 1X PRN PRN 02/04/18 07:15 02/05/18 07:14 DC Albumin Human 200 ml @ 200 mls/hr 1X PRN PRN 02/04/18 07:15 02/04/18 13:14 DC 02/04/18 11:26 200 MLS/HR Albuterol Sulfate (Ventolin Neb Soln) 2.5 mg PRN BID PRN 01/27/18 12:30 01/27/18 21:59 2.5 MG Alteplase, Recombinant (Cathflo) 2 mg 1X ONCE 02/04/18 03:00 02/04/18 03:01 DC 02/04/18 02:56 2 MG Amiodarone HCl (Cordarone) 200 mg DAILY 01/27/18 12:30 02/08/18 08:57 200 MG Aspirin (Anthony Aspirin) 325 mg DAILY 01/27/18 12:30 01/28/18 14:26 DC 01/28/18 09:13 325 MG Aspirin (Ecotrin) 81 mg [id number] 01/29/18 08:00 02/08/18 08:54 81 MG Atorvastatin Calcium (Lipitor) 80 mg QHS 01/27/18 21:00 02/08/18 20:39 80 MG Bacitracin (Bacitracin) 50,000 unit STK-MED ONCE 02/01/18 13:32 02/01/18 14:32 DC 02/01/18 14:55 50,000 UNIT Bacitracin 19725 unit/Sodium Chloride 3,000 ml @ 0 mls/hr 1X ONCE 01/27/18 13:15 01/27/18 13:16 Cancel Calcitriol (Rocaltrol) 0.25 mcg DAILY 01/27/18 12:30 02/08/18 08:53 0.25 MCG Carbamazepine (TEGretol) 200 mg BID 01/27/18 12:30 02/08/18 20:40 200 MG Carvedilol (Coreg) 12.5 mg BIDWMEALS 01/27/18 12:30 02/08/18 08:54 12.5 MG Cefazolin Sodium 1 gm/Sodium Chloride 500 ml @ 500 mls/hr 1X ONCE 02/01/18 06:00 02/01/18 06:59 DC Cefepime HCl (Maxipime) 1 gm Q24H 02/05/18 12:00 02/09/18 09:35 DC 02/08/18 14:49 1 GM Cefepime HCl 1 gm/ Dextrose 50 ml @ 100 mls/hr DAILY 02/06/18 09:00 UNV Ceftriaxone Sodium 2 gm/ Dextrose 100 ml @ 200 mls/hr Q24H 02/04/18 13:00 02/05/18 11:49 DC 02/04/18 14:24 200 MLS/HR Cellulose (Surgicel Fibrillar 1x2) 1 each STK-MED ONCE 02/01/18 12:05 02/01/18 13:06 DC Clopidogrel Bisulfate (Plavix) 75 mg DAILYWBKFT 01/28/18 08:00 01/28/18 14:28 DC 01/28/18 09:13 75 MG Darbepoetin Mauricio (Aranesp) 60 mcg WEEKLYHS 02/01/18 21:00 02/08/18 20:41 60 MCG Dexamethasone Sodium Phosphate (Decadron) 20 mg STK-MED ONCE 02/01/18 14:25 02/01/18 14:26 DC Dextrose (Dextrose 50%-Water Syringe) 12.5 gm PRN Q15MIN PRN 01/28/18 14:45 02/05/18 08:50 12.5 GM Diltiazem HCl (Cardizem 24hr Cd) 120 mg DAILY 01/27/18 12:30 02/08/18 08:57 120 MG Diphenhydramine HCl (Benadryl) 50 mg 1X ONCE 02/09/18 08:30 02/09/18 08:31 DC 02/09/18 09:06 50 MG Docusate Sodium (Colace) 100 mg PRN DAILY PRN 02/04/18 10:30 02/07/18 22:13 100 MG Erythromycin (E-Mycin) 250 mg BID 01/27/18 21:00 02/08/18 20:39 250 MG Famotidine (Pepcid Vial) 20 mg DAILY 02/03/18 10:00 02/08/18 11:45 DC 02/08/18 09:00 20 MG Famotidine (Pepcid) 20 mg QHS 02/08/18 21:00 02/08/18 20:39 20 MG Fenofibrate (Lofibra) 134 mg QHS 01/27/18 21:00 02/08/18 20:40 134 MG Fentanyl Citrate (Fentanyl 2ml Vial) 50 mcg PRN Q5MIN PRN 01/27/18 10:45 01/27/18 18:00 DC Furosemide (Lasix) 80 mg [id number] 01/27/18 12:30 02/08/18 14:50 80 MG Gentamicin Sulfate 140 mg/ Dextrose 103.5 ml @ 207 mls/hr 1X ONCE 02/09/18 12:00 02/09/18 12:29 Gentamicin Sulfate 235 mg/ Dextrose 105.875 ml @ 105.875 mls/hr 1X ONCE 01/27/18 16:00 01/27/18 16:59 DC 01/27/18 19:56 105.875 MLS/HR Gentamicin Sulfate 1 each PRN DAILY PRN 10/16/18 09:30 Heparin Sodium (Porcine) (Hep Lock Adult) 500 unit 1X ONCE 01/29/18 14:00 01/29/18 14:17 DC 01/29/18 14:04 500 UNIT Hydralazine HCl (Apresoline) 10 mg PRN TID PRN 01/28/18 14:45 Hydromorphone HCl (Dilaudid) 0.5 mg PRN Q10MIN PRN 02/05/18 07:00 02/06/18 06:59 DC Influenza Virus Vaccine (Afluria Trivalent [id number] Syringe) 0.5 ml ONCE ONCE 01/27/18 09:00 01/27/18 09:01 DC 01/27/18 09:00 0.5 ML Info (PHARMACY MONITORING -- do not chart) 1 each PRN DAILY PRN 02/09/18 08:30 Insulin Glargine (Lantus) 22 units QHS 01/27/18 21:00 02/06/18 22:21 8 UNITS Insulin Human Lispro (HumaLOG) 0-5 UNITS TIDWMEALS 01/28/18 17:00 02/07/18 09:07 2 UNITS Lactobacillus Rhamnosus (Culturelle) 1 cap BID 01/27/18 21:00 02/08/18 20:39 1 CAP Lidocaine (Lidoderm) 1 patch PRN DAILY PRN 01/27/18 09:00 Lidocaine HCl (Lidocaine 1% 50ml Vial) 50 ml 1X ONCE 01/30/18 15:45 01/30/18 15:46 DC Lidocaine HCl (Xylocaine 1% Pf 30ml Vial) 30 ml 1X ONCE 02/01/18 13:15 02/01/18 13:18 DC Lidocaine HCl (Xylocaine-Mpf 1% 2ml Vial) 2 ml 1X ONCE 02/06/18 08:30 02/06/18 08:31 DC 02/06/18 08:30 2 ML Lidocaine HCl (Xylocaine-Mpf 2% Vial) 2 ml STK-MED ONCE 02/09/18 08:40 02/09/18 08:41 DC Lidocaine/ Epinephrine (LIDOCAINE 1%-EPI 1:100,000 Multi-Dose) 8 ml 1X ONCE 01/29/18 14:00 01/29/18 14:17 DC 01/29/18 14:01 8 ML Linezolid/Dextrose 300 ml @ 300 mls/hr Q12HR 02/09/18 10:00 Metronidazole 100 ml @ 100 mls/hr Q8HRS 02/09/18 14:00 Midazolam HCl (Versed) 2 mg STK-MED ONCE 02/01/18 14:25 02/01/18 14:26 DC Miscellaneous (Lidoderm Patch Removal) 1 ea QHS 01/27/18 21:00 02/05/18 20:57 1 EA Morphine Sulfate (Morphine Sulfate) 1 mg PRN Q10MIN PRN 02/05/18 07:00 02/06/18 06:59 DC Morphine Sulfate (Ms Contin) 15 mg BID 01/27/18 12:30 02/08/18 20:39 15 MG Niacin (Slo-Niacin) 500 mg QHS 01/27/18 21:00 02/08/18 20:39 500 MG Nitroglycerin (Nitrostat) 0.4 mg PRN Q5MIN PRN 01/27/18 12:00 Non-Formulary Medication (Albuterol Sulfate (Proventil Hfa Inhaler)) 2 puff BID PRN 01/27/18 12:00 UNV Non-Formulary Medication (Fluconazole (Diflucan)) 100 mg PRN 01/27/18 12:00 UNV Nystatin (Nystop) 1 erich PRN BID PRN 01/27/18 12:00 Ondansetron HCl (Zofran Odt) 4 mg PRN Q6HRS PRN 01/27/18 12:15 02/07/18 16:53 4 MG Ondansetron HCl (Zofran) 4 mg STK-MED ONCE 02/01/18 14:25 02/01/18 14:26 DC Oxycodone/ Acetaminophen (Percocet 10/325) 1 tab PRN Q4HRS PRN 01/29/18 07:45 02/09/18 02:37 1 TAB Pharmacy Consult (C.diff Med Screen By Rx) 1 each 1X ONCE 01/27/18 01:00 01/27/18 01:01 Cancel Polyethylene Glycol (miraLAX PACKET) 17 gm DAILY 02/08/18 12:30 02/08/18 12:26 17 GM Prochlorperazine Edisylate (Compazine) 5 mg PACU PRN PRN 02/05/18 07:00 02/06/18 06:59 DC Promethazine HCl (Phenergan Im) 12.5 mg 1X ONCE 01/29/18 12:45 01/29/18 12:46 DC Promethazine HCl (Phenergan Supp) 12.5 mg 1X ONCE 01/29/18 12:15 01/29/18 12:36 DC Propofol 20 ml @ As Directed STK-MED ONCE 02/05/18 12:08 02/05/18 12:09 DC Ringer's Solution 1,000 ml @ 30 mls/hr Q24H 02/05/18 07:00 02/05/18 18:59 DC Sevoflurane (Ultane) 30 ml STK-MED ONCE 01/27/18 13:11 01/27/18 13:12 DC Sodium Chloride 1,000 ml @ 400 mls/hr Q2H30M PRN 02/09/18 08:21 02/09/18 20:20 Sodium Chloride (Normal Saline Flush) 10 ml 1X PRN PRN 01/30/18 13:15 01/31/18 13:14 DC Ticagrelor (Brilinta) 90 mg BID 01/28/18 21:00 02/08/18 20:39 90 MG Tramadol HCl (Ultram) 50 mg PRN Q4HRS PRN 01/27/18 12:00 02/08/18 04:36 50 MG Vancomycin HCl (Vanco Per Pharmacy) 1 each PRN DAILY PRN 02/05/18 12:00 02/09/18 09:50 DC 02/08/18 14:35 1 EACH Vancomycin HCl (Vancomycin Random Level) 1 each 1X ONCE 02/08/18 05:00 02/08/18 05:01 DC 02/08/18 05:00 1 EACH Vancomycin HCl 1.5 gm/Sodium Chloride 500 ml @ 250 mls/hr 1X ONCE 02/05/18 14:00 02/05/18 15:59 DC 02/05/18 14:05 250 MLS/HR Vancomycin HCl 1.75 gm/Sodium Chloride 500 ml @ 250 mls/hr 1X ONCE 01/26/18 23:00 01/27/18 00:59 DC 01/26/18 23:53 250 MLS/HR Vancomycin HCl 500 mg/Sodium Chloride 100 ml @ 100 mls/hr QTUTHSA 02/09/18 16:00 02/09/18 16:00 DC Vitamin B Complex/ Vitamin C (Melly-Shabbir) 1 tab DAILY 01/27/18 12:30 02/08/18 08:54 1 TAB Lab Laboratory Tests Test 02/08/18 16:53 02/08/18 20:23 02/09/18 05:15 02/09/18 07:37 Glucose (Fingerstick) 125 mg/dL (70-99) 111 mg/dL (70-99) 99 mg/dL (70-99) White Blood Count 19.0 x10^3/uL (4.0-11.0) Red Blood Count 2.48 x10^6/uL (3.50-5.40) Hemoglobin 7.8 g/dL (12.0-15.5) Hematocrit 23.8 % (36.0-47.0) Mean Corpuscular Volume 96 fL (79-100) Mean Corpuscular Hemoglobin 32 pg (25-35) Mean Corpuscular Hemoglobin Concent 33 g/dL (31-37) Red Cell Distribution Width 17.0 % (11.5-14.5) Platelet Count 386 x10^3/uL (140-400) Neutrophils (%) (Auto) 88 % (31-73) Lymphocytes (%) (Auto) 4 % (24-48) Monocytes (%) (Auto) 7 % (0-9) Eosinophils (%) (Auto) 0 % (0-3) Basophils (%) (Auto) 1 % (0-3) Neutrophils # (Auto) 16.6 x10^3uL (1.8-7.7) Lymphocytes # (Auto) 0.8 x10^3/uL (1.0-4.8) Monocytes # (Auto) 1.2 x10^3/uL (0.0-1.1) Eosinophils # (Auto) 0.1 x10^3/uL (0.0-0.7) Basophils # (Auto) 0.2 x10^3/uL (0.0-0.2) Sodium Level 143 mmol/L (136-145) Potassium Level 4.4 mmol/L (3.5-5.1) Chloride Level 104 mmol/L (98-107) Carbon Dioxide Level 26 mmol/L (21-32) Anion Gap 13 (6-14) Blood Urea Nitrogen 30 mg/dL (7-20) Creatinine 5.2 mg/dL (0.6-1.0) Estimated GFR (Cockcroft-Gault) 8.7 BUN/Creatinine Ratio 6 (6-20) Glucose Level 117 mg/dL (70-99) Calcium Level 8.3 mg/dL (8.5-10.1) Total Bilirubin 0.5 mg/dL (0.2-1.0) Aspartate Amino Transf (AST/SGOT) 12 U/L (15-37) Alanine Aminotransferase (ALT/SGPT) 13 U/L (14-59) Alkaline Phosphatase 94 U/L (46-116) Total Protein 5.2 g/dL (6.4-8.2) Albumin 2.0 g/dL (3.4-5.0) Albumin/Globulin Ratio 0.6 (1.0-1.7) Lipase 198 U/L (73-393) Results All relevant outside records, renal labs, imaging studies, telemetry/EKG's were reviewed. HEMANT SCHAEFER MD Feb 09, 2018 11:23
--- NOTE | 2018-02-09 11:33 | PDOC ---
Objective: Objective: Reviewed w/ RN - DC held - ophthalmology consulted. Has ongoing nausea. Reviewed charted - distended GB on CT in 11/2017 - now orders for US. No stools charted. Vital Signs: Vital Signs Date Time Temp Pulse Resp B/P (MAP) Pulse Ox O2 Delivery O2 Flow Rate FiO2 02/09/18 08:22 18 Room Air 02/09/18 07:00 98.1 73 120/56 (77) 98 98.1 02/08/18 15:00 2.0 Labs: Laboratory Tests Test 02/08/18 16:53 02/08/18 20:23 02/09/18 05:15 02/09/18 07:37 Glucose (Fingerstick) 125 mg/dL 111 mg/dL 99 mg/dL White Blood Count 19.0 x10^3/uL Red Blood Count 2.48 x10^6/uL Hemoglobin 7.8 g/dL Hematocrit 23.8 % Mean Corpuscular Volume 96 fL Mean Corpuscular Hemoglobin 32 pg Mean Corpuscular Hemoglobin Concent 33 g/dL Red Cell Distribution Width 17.0 % Platelet Count 386 x10^3/uL Neutrophils (%) (Auto) 88 % Lymphocytes (%) (Auto) 4 % Monocytes (%) (Auto) 7 % Eosinophils (%) (Auto) 0 % Basophils (%) (Auto) 1 % Neutrophils # (Auto) 16.6 x10^3uL Lymphocytes # (Auto) 0.8 x10^3/uL Monocytes # (Auto) 1.2 x10^3/uL Eosinophils # (Auto) 0.1 x10^3/uL Basophils # (Auto) 0.2 x10^3/uL Sodium Level 143 mmol/L Potassium Level 4.4 mmol/L Chloride Level 104 mmol/L Carbon Dioxide Level 26 mmol/L Anion Gap 13 Blood Urea Nitrogen 30 mg/dL Creatinine 5.2 mg/dL Estimated GFR (Cockcroft-Gault) 8.7 BUN/Creatinine Ratio 6 Glucose Level 117 mg/dL Calcium Level 8.3 mg/dL Total Bilirubin 0.5 mg/dL Aspartate Amino Transf (AST/SGOT) 12 U/L Alanine Aminotransferase (ALT/SGPT) 13 U/L Alkaline Phosphatase 94 U/L Total Protein 5.2 g/dL Albumin 2.0 g/dL Albumin/Globulin Ratio 0.6 Lipase 198 U/L PE: GEN: dialyzing LUNGS: room air HEART: RRR ABD: soft EXTREMITY/SKIN: RLE wound NEURO/PSYCH: sleeping A/P: S/p RLE bypass/infection/debridement Leukocytosis - worse Chronic anemia - stable, ESRD on HD Chronic nausea w/ h/o gastroparesis and GERD - previously did well on Reglan but stopped when began dialysis, currently on erythromycin and PO H2 bulmaro, also getting pain meds for leg -- Chronic GI issues. Has abd US ordered, await this. Not stooling and taking pain meds - add Amitiza. EDDY IGLESIAS Feb 09, 2018 11:33
--- NOTE | 2018-02-09 11:33 | PDOC ---
PROGRESS NOTES Subjective Subjective "I wish all of this would just clear up." Objective Objective Vascular Surgery - POD#8/#13 Right groin sharp excisional debridement of necrotic skin and subcutaneous tissue; Right groin wound VAC placement. O: Patient seen on dialysis. RLE: Wound vac dressing intact. Surrounding tissue soft and without erythema. Minimal bloody output in vac canister. Appearance of cellulitis has improved greatly to lower leg with reduction in erythema, although still with faint hue present. Wrinkly skin. Leg incision remains intact with alberto (other than upper portion with wound vac dressing) Strong palpable bypass graft. Assessment/Plan: 1. Severe PAD - POD#33 Right common femoral & profunda artery endart; Right common femoral artery to below knee pop bypass; Right leg GSV harvest * patent bypass graft * continue antiplatelet therapy. * will plan to remove alberto prior to discharge. Patient wants to have this coordinated with vac dressing change when pain medication is on board. 2. Surgical incision infection - POD#13/#8 Right groin wound debridement with muscle flap and wound vac dressing application. * C/S + Klebsiella - continue IV antibiotic therapy as per ID. * continue wound vac therapy with dressing changes M-W-F's * woodworking machine feeder will be available and will attempt to have staff from vascular surgery available as well to evaluate wound bed again tomorrow. * Elevating WBC level. ID adjusting antibiotics. May need CT? Continue to follow closely. 3. brand mgr working on placement when deemed medically stable. Not today and most likely, not until WBC level trending downward. Vital Signs Date Time Temp Pulse Resp B/P (MAP) Pulse Ox O2 Delivery O2 Flow Rate FiO2 02/09/18 08:22 18 Room Air 02/09/18 07:00 98.1 73 120/56 (77) 98 98.1 02/08/18 15:00 2.0 Intake and Output 02/09/18 07:00 Intake Total 600 ml Output Total 0 ml Balance 600 ml Intake Oral 600 ml Output Urine Total 0 ml Assessment Assessment Problems Medical Problems: (1) Chronic renal failure Status: Acute Comment Review of Relevant I have reviewed the following items bert (where applicable) has been applied. Labs Laboratory Tests Test 02/07/18 11:31 02/07/18 16:33 02/07/18 20:31 02/08/18 03:30 Glucose (Fingerstick) 108 mg/dL (70-99) 99 mg/dL (70-99) 92 mg/dL (70-99) White Blood Count 16.5 x10^3/uL (4.0-11.0) Red Blood Count 2.38 x10^6/uL (3.50-5.40) Hemoglobin 7.6 g/dL (12.0-15.5) Hematocrit 22.4 % (36.0-47.0) Mean Corpuscular Volume 94 fL (79-100) Mean Corpuscular Hemoglobin 32 pg (25-35) Mean Corpuscular Hemoglobin Concent 34 g/dL (31-37) Red Cell Distribution Width 16.7 % (11.5-14.5) Platelet Count 348 x10^3/uL (140-400) Neutrophils (%) (Auto) 86 % (31-73) Lymphocytes (%) (Auto) 7 % (24-48) Monocytes (%) (Auto) 7 % (0-9) Eosinophils (%) (Auto) 0 % (0-3) Basophils (%) (Auto) 0 % (0-3) Neutrophils # (Auto) 14.2 x10^3uL (1.8-7.7) Lymphocytes # (Auto) 1.1 x10^3/uL (1.0-4.8) Monocytes # (Auto) 1.1 x10^3/uL (0.0-1.1) Eosinophils # (Auto) 0.1 x10^3/uL (0.0-0.7) Basophils # (Auto) 0.0 x10^3/uL (0.0-0.2) Sodium Level 142 mmol/L (136-145) Potassium Level 3.8 mmol/L (3.5-5.1) Chloride Level 104 mmol/L (98-107) Carbon Dioxide Level 30 mmol/L (21-32) Anion Gap 8 (6-14) Blood Urea Nitrogen 23 mg/dL (7-20) Creatinine 4.2 mg/dL (0.6-1.0) Estimated GFR (Cockcroft-Gault) 11.1 BUN/Creatinine Ratio 5 (6-20) Glucose Level 170 mg/dL (70-99) Calcium Level 8.3 mg/dL (8.5-10.1) Total Bilirubin 0.4 mg/dL (0.2-1.0) Aspartate Amino Transf (AST/SGOT) 15 U/L (15-37) Alanine Aminotransferase (ALT/SGPT) 13 U/L (14-59) Alkaline Phosphatase 91 U/L (46-116) Total Protein 5.0 g/dL (6.4-8.2) Albumin 2.0 g/dL (3.4-5.0) Albumin/Globulin Ratio 0.7 (1.0-1.7) Vitamin B12 Level 653 pg/mL (247-911) Thyroid Stimulating Hormone (TSH) 3.684 uIU/mL (0.358-3.74) Random Vancomycin Level 20.4 mcg/mL Test 02/08/18 08:11 02/08/18 10:39 02/08/18 16:53 02/08/18 20:23 Glucose (Fingerstick) 120 mg/dL (70-99) 107 mg/dL (70-99) 125 mg/dL (70-99) 111 mg/dL (70-99) Test 02/09/18 05:15 02/09/18 07:37 White Blood Count 19.0 x10^3/uL (4.0-11.0) Red Blood Count 2.48 x10^6/uL (3.50-5.40) Hemoglobin 7.8 g/dL (12.0-15.5) Hematocrit 23.8 % (36.0-47.0) Mean Corpuscular Volume 96 fL (79-100) Mean Corpuscular Hemoglobin 32 pg (25-35) Mean Corpuscular Hemoglobin Concent 33 g/dL (31-37) Red Cell Distribution Width 17.0 % (11.5-14.5) Platelet Count 386 x10^3/uL (140-400) Neutrophils (%) (Auto) 88 % (31-73) Lymphocytes (%) (Auto) 4 % (24-48) Monocytes (%) (Auto) 7 % (0-9) Eosinophils (%) (Auto) 0 % (0-3) Basophils (%) (Auto) 1 % (0-3) Neutrophils # (Auto) 16.6 x10^3uL (1.8-7.7) Lymphocytes # (Auto) 0.8 x10^3/uL (1.0-4.8) Monocytes # (Auto) 1.2 x10^3/uL (0.0-1.1) Eosinophils # (Auto) 0.1 x10^3/uL (0.0-0.7) Basophils # (Auto) 0.2 x10^3/uL (0.0-0.2) Sodium Level 143 mmol/L (136-145) Potassium Level 4.4 mmol/L (3.5-5.1) Chloride Level 104 mmol/L (98-107) Carbon Dioxide Level 26 mmol/L (21-32) Anion Gap 13 (6-14) Blood Urea Nitrogen 30 mg/dL (7-20) Creatinine 5.2 mg/dL (0.6-1.0) Estimated GFR (Cockcroft-Gault) 8.7 BUN/Creatinine Ratio 6 (6-20) Glucose Level 117 mg/dL (70-99) Calcium Level 8.3 mg/dL (8.5-10.1) Total Bilirubin 0.5 mg/dL (0.2-1.0) Aspartate Amino Transf (AST/SGOT) 12 U/L (15-37) Alanine Aminotransferase (ALT/SGPT) 13 U/L (14-59) Alkaline Phosphatase 94 U/L (46-116) Total Protein 5.2 g/dL (6.4-8.2) Albumin 2.0 g/dL (3.4-5.0) Albumin/Globulin Ratio 0.6 (1.0-1.7) Lipase 198 U/L (73-393) Glucose (Fingerstick) 99 mg/dL (70-99) Laboratory Tests Test 02/08/18 16:53 02/08/18 20:23 02/09/18 05:15 02/09/18 07:37 Glucose (Fingerstick) 125 mg/dL (70-99) 111 mg/dL (70-99) 99 mg/dL (70-99) White Blood Count 19.0 x10^3/uL (4.0-11.0) Red Blood Count 2.48 x10^6/uL (3.50-5.40) Hemoglobin 7.8 g/dL (12.0-15.5) Hematocrit 23.8 % (36.0-47.0) Mean Corpuscular Volume 96 fL (79-100) Mean Corpuscular Hemoglobin 32 pg (25-35) Mean Corpuscular Hemoglobin Concent 33 g/dL (31-37) Red Cell Distribution Width 17.0 % (11.5-14.5) Platelet Count 386 x10^3/uL (140-400) Neutrophils (%) (Auto) 88 % (31-73) Lymphocytes (%) (Auto) 4 % (24-48) Monocytes (%) (Auto) 7 % (0-9) Eosinophils (%) (Auto) 0 % (0-3) Basophils (%) (Auto) 1 % (0-3) Neutrophils # (Auto) 16.6 x10^3uL (1.8-7.7) Lymphocytes # (Auto) 0.8 x10^3/uL (1.0-4.8) Monocytes # (Auto) 1.2 x10^3/uL (0.0-1.1) Eosinophils # (Auto) 0.1 x10^3/uL (0.0-0.7) Basophils # (Auto) 0.2 x10^3/uL (0.0-0.2) Sodium Level 143 mmol/L (136-145) Potassium Level 4.4 mmol/L (3.5-5.1) Chloride Level 104 mmol/L (98-107) Carbon Dioxide Level 26 mmol/L (21-32) Anion Gap 13 (6-14) Blood Urea Nitrogen 30 mg/dL (7-20) Creatinine 5.2 mg/dL (0.6-1.0) Estimated GFR (Cockcroft-Gault) 8.7 BUN/Creatinine Ratio 6 (6-20) Glucose Level 117 mg/dL (70-99) Calcium Level 8.3 mg/dL (8.5-10.1) Total Bilirubin 0.5 mg/dL (0.2-1.0) Aspartate Amino Transf (AST/SGOT) 12 U/L (15-37) Alanine Aminotransferase (ALT/SGPT) 13 U/L (14-59) Alkaline Phosphatase 94 U/L (46-116) Total Protein 5.2 g/dL (6.4-8.2) Albumin 2.0 g/dL (3.4-5.0) Albumin/Globulin Ratio 0.6 (1.0-1.7) Lipase 198 U/L (73-393) Microbiology 02/06/18 Blood Culture - Preliminary, Resulted NO GROWTH AFTER 3 DAYS 01/27/18 Anaerobic/Aerobic Culture - Final, Complete 01/27/18 Anaerobic Culture Result 1 (ROSALIND) - Final, Complete 01/27/18 Aerobic Culture - Final, Complete 01/27/18 Aerobic Culture Result 1 (ROSALIND) - Final, Complete 01/27/18 Antimicrobic Susceptibility - Final, Complete 01/27/18 Gram Stain - Final, Complete 01/27/18 Gram Stain Result 1 (ROSALIND) - Final, Complete 01/27/18 Gram Stain Result 2 (ROSALIND) - Final, Complete Medications Current Medications Hydromorphone HCl (Dilaudid) 2 mg 1X ONCE IV Last administered on 01/26/18at 22 :39; Start 01/26/18 at 22:00; Stop 01/26/18 at 22:01; Status DC Vancomycin HCl (Vanco Per Pharmacy) 1 each PRN DAILY PRN MC SEE COMMENTS Last administered on 01/31/18at 17:20; Start 01/26/18 at 22:45; Stop 02/01/18 at 11:41 ; Status DC Vancomycin HCl 1.75 gm/Sodium Chloride 500 ml @ 250 mls/hr 1X ONCE IV Last administered on 01/26/18at 23:53; Start 01/26/18 at 23:00; Stop 01/27/18 at 00:59 ; Status DC Ondansetron HCl (Zofran) 4 mg PRN Q8HRS PRN IV NAUSEA/VOMITING 1ST CHOICE; Start 01/26/18 at 23:15; Stop 01/27/18 at 23:14; Status DC Sodium Chloride 1,000 ml @ 75 mls/hr [id number] IV Last administered on at 00:39; Start 01/26/18 at 23:30; Stop 01/27/18 at 23:29; Status DC Pharmacy Consult (C.diff Med Screen By Rx) 1 each 1X ONCE MC ; Start 01/27/18 at 01:00; Stop 01/27/18 at 01:01; Status Cancel Influenza Virus Vaccine (Afluria Trivalent [id number] Syringe) 0.5 ml ONCE ONCE VAX IM Last administered on 01/27/18at 09:00; Start 01/27/18 at 09:00; Stop 01/27/18 at 09:01; Status DC Vancomycin HCl (Vancomycin Random Level) 1 each 1X ONCE MC Last administered on 01/28/18at 05:00; Start 01/28/18 at 05:00; Stop 01/28/18 at 05:01; Status DC Hydromorphone HCl (Dilaudid) 1 mg PRN Q3HRS PRN IV SEVERE PAIN Last administered on 02/09/18at 08:22; Start 01/27/18 at 03:30 Ondansetron HCl (Zofran) 4 mg PRN Q6HRS PRN IV NAUSEA/VOMITING; Start 01/27/18 at 10:45; Stop 01/27/18 at 18:00; Status DC Fentanyl Citrate (Fentanyl 2ml Vial) 25 mcg PRN Q5MIN PRN IV MILD PAIN; Start 01/27/18 at 10:45; Stop 01/27/18 at 18:00; Status DC Fentanyl Citrate (Fentanyl 2ml Vial) 50 mcg PRN Q5MIN PRN IV MODERATE TO SEVERE PAIN; Start 01/27/18 at 10:45; Stop 01/27/18 at 18:00; Status DC Morphine Sulfate (Morphine Sulfate) 1 mg PRN Q10MIN PRN IV SEVERE PAIN Last administered on 01/27/18at 16:28; Start 01/27/18 at 10:45; Stop 01/27/18 at 18:00 ; Status DC Ringer's Solution 1,000 ml @ 30 mls/hr Q24H IV Last administered on 01/27/18at 10:35; Start 01/27/18 at 10:35; Stop 01/27/18 at 19:36; Status DC Lidocaine HCl (Xylocaine-Mpf 1% 2ml Vial) 2 ml 1X PRN PRN ID IV START; Start 01/27/18 at 10:45; Stop 01/27/18 at 18:00; Status DC Hydromorphone HCl (Dilaudid) 0.5 mg PRN Q10MIN PRN IV SEV PAIN, Second choice Last administered on 01/27/18at 15:59; Start 01/27/18 at 10:45; Stop 01/27/18 at 18:00; Status DC Prochlorperazine Edisylate (Compazine) 5 mg PACU PRN PRN IV NAUSEA, MRX1; Start 01/27/18 at 10:45; Stop 01/27/18 at 18:00; Status DC Amiodarone HCl (Cordarone) 200 mg DAILY PO Last administered on 02/08/18 08: 57; Start 01/27/18 at 12:30 Aspirin (Anthony Aspirin) 325 mg DAILY PO Last administered on 01/28/18 09:13; Start 01/27/18 at 12:30; Stop 01/28/18 at 14:26; Status DC Carbamazepine (TEGretol) 200 mg BID PO Last administered on 02/08/18 20:40; Start 01/27/18 at 12:30 Carvedilol (Coreg) 12.5 mg BIDWMEALS PO Last administered on 02/08/18 08:54; Start 01/27/18 at 12:30 Vitamin B Complex/ Vitamin C (Melly-Shabbir) 1 tab DAILY PO Last administered on 08:54; Start 01/27/18 at 12:30 Furosemide (Lasix) 80 mg [id number] PO Last administered on 02/08/18 14:50; Start 01/27/18 at 12:30 Insulin Glargine (Lantus) 22 units QHS SQ Last administered on 02/06/18 22:21 ; Start 01/27/18 at 21:00 Morphine Sulfate (Ms Contin) 15 mg BID PO Last administered on 02/08/18 20:39 ; Start 01/27/18 at 12:30 Nitroglycerin (Nitrostat) 0.4 mg PRN Q5MIN PRN SL CHEST PAIN; Start 01/27/18 at 12:00 Nystatin (Nystop) 1 susanna PRN BID PRN TP SKIN BREAKDOWN; Start 01/27/18 at 12:00 Tramadol HCl (Ultram) 50 mg PRN Q4HRS PRN PO HEADACHE Last administered on 04:36; Start 01/27/18 at 12:00 Non-Formulary Medication (Albuterol Sulfate (Proventil Hfa Inhaler)) 2 puff BID PRN IH FOR ASTHMA; Start 01/27/18 at 12:00; Status UNV Atorvastatin Calcium (Lipitor) 80 mg QHS PO Last administered on 02/08/18 20: 39; Start 01/27/18 at 21:00 Calcitriol (Rocaltrol) 0.25 mcg DAILY PO Last administered on 02/08/18 08:53 ; Start 01/27/18 at 12:30 Diltiazem HCl (Cardizem 24hr Cd) 120 mg DAILY PO Last administered on at 08:57; Start 01/27/18 at 12:30 Erythromycin (E-Mycin) 250 mg BID PO Last administered on 02/08/18 20:39; Start 01/27/18 at 21:00 Fenofibrate (Lofibra) 134 mg QHS PO Last administered on 02/08/18 20:40; Start 01/27/18 at 21:00 Non-Formulary Medication (Fluconazole (Diflucan)) 100 mg PRN PO ; Start at 12:00; Status UNV Lidocaine (Lidoderm) 1 patch PRN DAILY PRN TD PAIN; Start 01/27/18 at 09:00 Niacin (Slo-Niacin) 500 mg QHS PO Last administered on 02/08/18at 20:39; Start 01/27/18 at 21:00 Ondansetron HCl (Zofran Odt) 4 mg PRN Q6HRS PRN PO NAUSEA/VOMITING Last administered on 02/07/18at 16:53; Start 01/27/18 at 12:15 Miscellaneous (Lidoderm Patch Removal) 1 ea QHS MC Last administered on at 20:57; Start 01/27/18 at 21:00 Albuterol Sulfate (Ventolin Neb Soln) 2.5 mg PRN BID PRN NEB SHORTNESS OF BREATH Last administered on 01/27/18at 21:59; Start 01/27/18 at 12:30 Lidocaine HCl (Lidocaine 1% 50ml Vial) 50 ml 1X ONCE INJ Last administered on 01/27/18at 14:06; Start 01/27/18 at 12:45; Stop 01/27/18 at 12:46; Status DC Hydromorphone HCl (Dilaudid) 2 mg STK-MED ONCE .ROUTE ; Start 01/27/18 at 12:36 ; Stop 01/27/18 at 12:38; Status DC Propofol 20 ml @ As Directed STK-MED ONCE IV ; Start 01/27/18 at 12:38; Stop at 12:39; Status DC Bacitracin 14588 unit/Sodium Chloride 3,000 ml @ 0 mls/hr 1X ONCE IR ; Start 01/27/18 at 13:15; Stop 01/27/18 at 13:16; Status Cancel Dexamethasone Sodium Phosphate (Decadron) 20 mg STK-MED ONCE .ROUTE ; Start 01/27/18 at 13:11; Stop 01/27/18 at 13:12; Status DC Ondansetron HCl (Zofran) 4 mg STK-MED ONCE .ROUTE ; Start 01/27/18 at 13:11; Stop 01/27/18 at 13:12; Status DC Sevoflurane (Ultane) 30 ml STK-MED ONCE IH ; Start 01/27/18 at 13:11; Stop 01/27 at 13:12; Status DC Bacitracin (Bacitracin) 50,000 unit STK-MED ONCE IRR Last administered on at 13:58; Start 01/27/18 at 12:14; Stop 01/27/18 at 13:16; Status DC Clopidogrel Bisulfate (Plavix) 75 mg DAILYWBKFT PO Last administered on at 09:13; Start 01/28/18 at 08:00; Stop 01/28/18 at 14:28; Status DC Hydromorphone HCl (Dilaudid) 2 mg STK-MED ONCE .ROUTE ; Start 01/27/18 at 15:38 ; Stop 01/27/18 at 15:40; Status DC Gentamicin Sulfate 235 mg/ Dextrose 105.875 ml @ 105.875 mls/hr 1X ONCE IV Last administered on 01/27/18at 19:56; Start 01/27/18 at 16:00; Stop 01/27/18 at 16:59; Status DC Lactobacillus Rhamnosus (Culturelle) 1 cap BID PO Last administered on at 20:39; Start 01/27/18 at 21:00 Cefepime HCl 1 gm/ Dextrose 50 ml @ 100 mls/hr DAILY IV ; Start 01/29/18 at 09: 00; Status UNV Metronidazole 100 ml @ 100 mls/hr Q12HR IV Last administered on 02/02/18at 21: 00; Start 01/28/18 at 10:00; Stop 02/03/18 at 10:49; Status DC Cefepime HCl (Maxipime) 1 gm Q24H IVP Last administered on 02/03/18at 10:54; Start 01/28/18 at 10:00; Stop 02/04/18 at 12:02; Status DC Lidocaine HCl (Xylocaine-Mpf 2% Vial) 2 ml STK-MED ONCE .ROUTE ; Start 01/28/18 at 11:41; Stop 01/28/18 at 11:42; Status DC Sodium Chloride 1,000 ml @ 1,000 mls/hr Q1H PRN IV hypotension; Start 01/28/18 at 12:09; Stop 01/28/18 at 18:08; Status DC Info (PHARMACY MONITORING -- do not chart) 1 each PRN DAILY PRN MC SEE COMMENTS ; Start 01/28/18 at 12:15; Status UNV Info (PHARMACY MONITORING -- do not chart) 1 each PRN DAILY PRN MC SEE COMMENTS ; Start 01/28/18 at 12:15; Stop 01/31/18 at 09:10; Status DC Lidocaine HCl (Xylocaine-Mpf 2% Vial) 2 ml 1X ONCE INJ ; Start 01/28/18 at 12: 15; Stop 01/28/18 at 12:21; Status DC Ticagrelor (Brilinta) 90 mg BID PO Last administered on 02/08/18at 20:39; Start 01/28/18 at 21:00 Diphenhydramine HCl (Benadryl) 25 mg PRN Q6HRS PRN PO ITCHING; Start 01/28/18 at 14:15 Aspirin (Ecotrin) 81 mg DAILYWBKFT PO Last administered on 02/08/18at 08:54; Start 01/29/18 at 08:00 Insulin Human Lispro (HumaLOG) 0-5 UNITS TIDWMEALS SQ Last administered on at 09:07; Start 01/28/18 at 17:00 Dextrose (Dextrose 50%-Water Syringe) 12.5 gm PRN Q15MIN PRN IV SEE COMMENTS Last administered on 02/05/18at 08:50; Start 01/28/18 at 14:45 Hydralazine HCl (Apresoline) 10 mg PRN TID PRN PO hypertension; Start 01/28/18 at 14:45 Oxycodone/ Acetaminophen (Percocet 10/325) 1 tab PRN Q4HRS PRN PO pain SEVERE Last administered on 02/09/18at 02:37; Start 01/29/18 at 07:45 Promethazine HCl (Phenergan Supp) 12.5 mg 1X ONCE DE ; Start 01/29/18 at 12:15 ; Stop 01/29/18 at 12:36; Status DC Promethazine HCl (Phenergan Im) 12.5 mg 1X ONCE IM ; Start 01/29/18 at 12:45; Stop 01/29/18 at 12:46; Status DC Lidocaine/ Epinephrine (LIDOCAINE 1%-EPI 1:100,000 Multi-Dose) 20 ml STK-MED ONCE .ROUTE ; Start 01/29/18 at 12:45; Stop 01/29/18 at 12:47; Status DC Heparin Sodium (Porcine) (Hep Lock Adult) 500 unit STK-MED ONCE IV ; Start 01/29 at 12:45; Stop 01/29/18 at 12:47; Status DC Morphine Sulfate (Morphine Sulfate) 10 mg STK-MED ONCE .ROUTE ; Start 01/29/18 at 13:23; Stop 01/29/18 at 13:25; Status DC Midazolam HCl (Versed) 2 mg STK-MED ONCE .ROUTE ; Start 01/29/18 at 13:23; Stop 01/29/18 at 13:25; Status DC Morphine Sulfate (Morphine Sulfate) 1 mg PRN Q10MIN PRN IV SEVERE PAIN Last administered on 02/01/18at 15:46; Start 02/01/18 at 07:00; Stop 02/02/18 at 06:59 ; Status DC Ringer's Solution 1,000 ml @ 30 mls/hr Q24H IV ; Start 02/01/18 at 07:00; Stop 02/01/18 at 18:59; Status DC Lidocaine HCl (Xylocaine-Mpf 1% 2ml Vial) 2 ml PRN 1X PRN ID PRIOR TO IV START ; Start 02/01/18 at 07:00; Stop 02/02/18 at 06:59; Status DC Hydromorphone HCl (Dilaudid) 0.5 mg PRN Q10MIN PRN IV SEV PAIN, Second choice Last administered on 02/01/18at 16:08; Start 02/01/18 at 07:00; Stop 02/02/18 at 06:59; Status DC Prochlorperazine Edisylate (Compazine) 5 mg PACU PRN PRN IV NAUSEA, MRX1; Start 02/01/18 at 07:00; Stop 02/02/18 at 06:59; Status DC Lidocaine/ Epinephrine (LIDOCAINE 1%-EPI 1:100,000 Multi-Dose) 8 ml 1X ONCE IJ Last administered on 01/29/18at 14:01; Start 01/29/18 at 14:00; Stop 01/29/18 at 14:17; Status DC Heparin Sodium (Porcine) (Hep Lock Adult) 500 unit 1X ONCE IV Last administered on 01/29/18at 14:04; Start 01/29/18 at 14:00; Stop 01/29/18 at 14:17 ; Status DC Morphine Sulfate (Morphine Sulfate) 5 mg 1X ONCE IV Last administered on at 14:01; Start 01/29/18 at 14:00; Stop 01/29/18 at 14:17; Status DC Ondansetron HCl (Zofran) 4 mg PRN Q6HRS PRN IV NAUSEA/VOMITING 1ST CHOICE Last administered on 02/09/18at 08:22; Start 01/29/18 at 14:45 Vancomycin HCl 500 mg/Sodium Chloride 100 ml @ 100 mls/hr 1X ONCE IV Last administered on 01/29/18at 21:04; Start 01/29/18 at 18:00; Stop 01/29/18 at 18:59 ; Status DC Sodium Chloride 1,000 ml @ 1,000 mls/hr Q1H PRN IV hypotension; Start 01/30/18 at 13:09; Stop 01/30/18 at 19:08; Status DC Sodium Chloride (Normal Saline Flush) 10 ml 1X PRN PRN IV AP catheter pack; Start 01/30/18 at 13:15; Stop 01/31/18 at 13:14; Status DC Sodium Chloride (Normal Saline Flush) 10 ml 1X PRN PRN IV MANDREL MAKER catheter pack; Start 01/30/18 at 13:15; Stop 01/31/18 at 13:14; Status DC Sodium Chloride 1,000 ml @ 400 mls/hr Q2H30M PRN IV PATENCY; Start 01/30/18 at 13:09; Stop 01/31/18 at 01:08; Status DC Info (PHARMACY MONITORING -- do not chart) 1 each PRN DAILY PRN MC SEE COMMENTS ; Start 01/30/18 at 13:15; Stop 01/30/18 at 13:17; Status DC Info (PHARMACY MONITORING -- do not chart) 1 each PRN DAILY PRN MC SEE COMMENTS ; Start 01/30/18 at 13:15; Stop 02/04/18 at 07:27; Status DC Lidocaine HCl (Lidocaine 1% 50ml Vial) 50 ml 1X ONCE INJ ; Start 01/30/18 at 15 :45; Stop 01/30/18 at 15:46; Status DC Vancomycin HCl 500 mg/Sodium Chloride 100 ml @ 100 mls/hr ONCE ONCE IV Last administered on 01/30/18at 20:49; Start 01/30/18 at 18:00; Stop 01/30/18 at 18:59 ; Status DC Cefazolin Sodium 1 gm/Sodium Chloride 500 ml @ 500 mls/hr 1X ONCE IRR ; Start 02/01/18 at 06:00; Stop 02/01/18 at 06:59; Status DC Lidocaine HCl (Xylocaine-Mpf 2% Vial) 2 ml STK-MED ONCE .ROUTE ; Start 01/28/18 at 12:00; Stop 02/01/18 at 08:30; Status DC Darbepoetin Mauricio (Aranesp) 60 mcg [id number] SQ Last administered on 02/08/18at 20:41; Start 02/01/18 at 21:00 Cellulose (Surgicel Fibrillar 1x2) 1 each STK-MED ONCE .ROUTE ; Start 02/01/18 at 12:05; Stop 02/01/18 at 13:06; Status DC Lidocaine HCl (Xylocaine 1% Pf 30ml Vial) 30 ml 1X ONCE INJ ; Start 02/01/18 at 13:15; Stop 02/01/18 at 13:18; Status DC Sodium Chloride 1,000 ml @ 75 mls/hr [id number] IV Last administered on at 00:15; Start 02/01/18 at 13:45; Stop 02/02/18 at 16:43; Status DC Morphine Sulfate (Morphine Sulfate) 10 mg STK-MED ONCE .ROUTE ; Start 02/01/18 at 14:24; Stop 02/01/18 at 14:25; Status DC Midazolam HCl (Versed) 2 mg STK-MED ONCE .ROUTE ; Start 02/01/18 at 14:24; Stop 02/01/18 at 14:25; Status DC Midazolam HCl (Versed) 2 mg STK-MED ONCE .ROUTE ; Start 02/01/18 at 14:25; Stop 02/01/18 at 14:26; Status DC Propofol 20 ml @ As Directed STK-MED ONCE IV ; Start 02/01/18 at 14:25; Stop at 14:26; Status DC Dexamethasone Sodium Phosphate (Decadron) 20 mg STK-MED ONCE .ROUTE ; Start 02/01/18 at 14:25; Stop 02/01/18 at 14:26; Status DC Ondansetron HCl (Zofran) 4 mg STK-MED ONCE .ROUTE ; Start 02/01/18 at 14:25; Stop 02/01/18 at 14:26; Status DC Bacitracin (Bacitracin) 50,000 unit STK-MED ONCE IRR Last administered on at 14:55; Start 02/01/18 at 13:32; Stop 02/01/18 at 14:32; Status DC Vancomycin HCl 500 mg/Sodium Chloride 100 ml @ 100 mls/hr QTUTHSA IV Last administered on 02/02/18at 16:15; Start 02/02/18 at 16:00; Stop 02/04/18 at 12: 02; Status DC Sodium Chloride 1,000 ml @ 1,000 mls/hr Q1H PRN IV hypotension; Start 02/02/18 at 09:39; Stop 02/02/18 at 15:38; Status DC Albumin Human 200 ml @ 200 mls/hr 1X PRN PRN IV Hypotension; Start 02/02/18 at 09:45; Stop 02/02/18 at 15:44; Status DC Sodium Chloride 1,000 ml @ 400 mls/hr Q2H30M PRN IV PATENCY; Start 02/02/18 at 09:39; Stop 02/02/18 at 21:38; Status DC Info (PHARMACY MONITORING -- do not chart) 1 each PRN DAILY PRN MC SEE COMMENTS ; Start 02/02/18 at 09:45; Stop 02/04/18 at 07:28; Status DC Info (PHARMACY MONITORING -- do not chart) 1 each PRN DAILY PRN MC SEE COMMENTS ; Start 02/02/18 at 09:45; Status UNV Prochlorperazine Edisylate (Compazine) 10 mg PRN Q6HRS PRN IV NAUSEA/VOMITING 2ND CHOICE Last administered on 02/02/18at 23:23; Start 02/02/18 at 11:30 Vancomycin HCl (Vanco Per Pharmacy) 1 each PRN DAILY PRN MC SEE COMMENTS Last administered on 02/02/18at 13:57; Start 02/02/18 at 14:00; Stop 02/04/18 at 12: 02; Status DC Famotidine (Pepcid Vial) 20 mg DAILY IVP Last administered on 02/08/18at 09:00 ; Start 02/03/18 at 10:00; Stop 02/08/18 at 11:45; Status DC Alteplase, Recombinant (Cathflo) 2 mg 1X ONCE INT CAT Last administered on 03/14at 02:56; Start 02/04/18 at 03:00; Stop 02/04/18 at 03:01; Status DC Sodium Chloride 1,000 ml @ 1,000 mls/hr Q1H PRN IV hypotension; Start at 07:15; Stop 02/04/18 at 13:14; Status DC Albumin Human 200 ml @ 200 mls/hr 1X PRN PRN IV Hypotension Last administered on 02/04/18at 11:26; Start 02/04/18 at 07:15; Stop 02/04/18 at 13:14; Status DC Acetaminophen (Tylenol) 500 mg 1X PRN PRN PO MILD PAIN / TEMP; Start 02/04/18 at 07:15; Stop 02/05/18 at 07:14; Status DC Diphenhydramine HCl (Benadryl) 25 mg 1X PRN PRN IV ITCHING; Start 02/04/18 at 07:15; Stop 02/05/18 at 07:14; Status DC Diphenhydramine HCl (Benadryl) 25 mg 1X PRN PRN IV ITCHING; Start 02/04/18 at 07:15; Stop 02/05/18 at 07:14; Status DC Sodium Chloride 1,000 ml @ 400 mls/hr Q2H30M PRN IV PATENCY; Start 02/04/18 at 07:15; Stop 02/04/18 at 19:14; Status DC Info (PHARMACY MONITORING -- do not chart) 1 each PRN DAILY PRN MC SEE COMMENTS ; Start 02/04/18 at 07:15; Status Cancel Lidocaine HCl (Xylocaine-Mpf 2% Vial) 2 ml STK-MED ONCE .ROUTE ; Start at 09:43; Stop 02/04/18 at 09:44; Status DC Docusate Sodium (Colace) 100 mg PRN DAILY PRN PO CONSTIPATION Last administered on 02/07/18at 22:13; Start 02/04/18 at 10:30 Ceftriaxone Sodium 2 gm/ Dextrose 100 ml @ 200 mls/hr Q24H IV Last administered on 02/04/18at 14:24; Start 02/04/18 at 13:00; Stop 02/05/18 at 11 :49; Status DC Morphine Sulfate (Morphine Sulfate) 1 mg PRN Q10MIN PRN IV SEVERE PAIN; Start 02/05/18 at 07:00; Stop 02/06/18 at 06:59; Status DC Ringer's Solution 1,000 ml @ 30 mls/hr Q24H IV ; Start 02/05/18 at 07:00; Stop 02/05/18 at 18:59; Status DC Lidocaine HCl (Xylocaine-Mpf 1% 2ml Vial) 2 ml PRN 1X PRN ID IV START; Start 02/05/18 at 07:00; Stop 02/06/18 at 06:59; Status DC Hydromorphone HCl (Dilaudid) 0.5 mg PRN Q10MIN PRN IV SEV PAIN, Second choice; Start 02/05/18 at 07:00; Stop 02/06/18 at 06:59; Status DC Prochlorperazine Edisylate (Compazine) 5 mg PACU PRN PRN IV NAUSEA, MRX1; Start 02/05/18 at 07:00; Stop 02/06/18 at 06:59; Status DC Lidocaine HCl (Xylocaine-Mpf 2% Vial) 2 ml STK-MED ONCE .ROUTE ; Start at 10:00; Stop 02/05/18 at 08:19; Status DC Sodium Chloride 1,000 ml @ 75 mls/hr [id number] IV Last administered on at 07:00; Start 02/05/18 at 10:30; Stop 02/08/18 at 15:20; Status DC Cefepime HCl 1 gm/ Dextrose 50 ml @ 100 mls/hr DAILY IV ; Start 02/06/18 at 09 :00; Status UNV Vancomycin HCl (Vanco Per Pharmacy) 1 each PRN DAILY PRN MC SEE COMMENTS Last administered on 02/08/18at 14:35; Start 02/05/18 at 12:00; Stop 02/09/18 at 09 :50; Status DC Cefepime HCl (Maxipime) 1 gm Q24H IVP Last administered on 02/08/18at 14:49; Start 02/05/18 at 12:00; Stop 02/09/18 at 09:35; Status DC Propofol 20 ml @ As Directed STK-MED ONCE IV ; Start 02/05/18 at 12:08; Stop 02/05/18 at 12:09; Status DC Lidocaine HCl (Xylocaine-Mpf 2% Vial) 2 ml STK-MED ONCE .ROUTE ; Start at 12:08; Stop 02/05/18 at 12:09; Status DC Vancomycin HCl 1.5 gm/Sodium Chloride 500 ml @ 250 mls/hr 1X ONCE IV Last administered on 02/05/18at 14:05; Start 02/05/18 at 14:00; Stop 02/05/18 at 15 :59; Status DC Vancomycin HCl (Vancomycin Random Level) 1 each 1X ONCE MC Last administered on 02/06/18at 05:00; Start 02/06/18 at 05:00; Stop 02/06/18 at 05:01; Status DC Sodium Chloride 1,000 ml @ 1,000 mls/hr Q1H PRN IV hypotension; Start at 08:12; Stop 02/06/18 at 14:11; Status DC Sodium Chloride 1,000 ml @ 400 mls/hr Q2H30M PRN IV PATENCY; Start 02/06/18 at 08:12; Stop 02/06/18 at 20:11; Status DC Info (PHARMACY MONITORING -- do not chart) 1 each PRN DAILY PRN MC SEE COMMENTS ; Start 02/06/18 at 08:15; Status UNV Info (PHARMACY MONITORING -- do not chart) 1 each PRN DAILY PRN MC SEE COMMENTS ; Start 02/06/18 at 08:15; Status UNV Lidocaine HCl (Xylocaine-Mpf 1% 2ml Vial) 2 ml 1X ONCE ID Last administered on 02/06/18at 08:30; Start 02/06/18 at 08:30; Stop 02/06/18 at 08:31; Status DC Lidocaine HCl (Xylocaine-Mpf 2% Vial) 2 ml STK-MED ONCE .ROUTE ; Start at 08:32; Stop 02/06/18 at 08:33; Status DC Diphenhydramine HCl (Benadryl) 50 mg 1X ONCE IVP Last administered on at 09:10; Start 02/06/18 at 09:00; Stop 02/06/18 at 09:02; Status DC Vancomycin HCl (Vancomycin Random Level) 1 each 1X ONCE MC Last administered on 02/08/18at 05:00; Start 02/08/18 at 05:00; Stop 02/08/18 at 05:01; Status DC Lidocaine HCl (Xylocaine-Mpf 2% Vial) 2 ml STK-MED ONCE .ROUTE ; Start at 09:00; Stop 02/08/18 at 07:54; Status DC Polyethylene Glycol (miraLAX PACKET) 17 gm DAILY PO Last administered on at 12:26; Start 02/08/18 at 12:30 Famotidine (Pepcid) 20 mg QHS PO Last administered on 02/08/18at 20:39; Start 02/08/18 at 21:00 Vancomycin HCl 500 mg/Sodium Chloride 100 ml @ 100 mls/hr QTUTHSA IV ; Start 02/09/18 at 16:00; Stop 02/09/18 at 16:00; Status DC Sodium Chloride 1,000 ml @ 1,000 mls/hr Q1H PRN IV hypotension; Start at 08:21; Stop 02/09/18 at 14:20 Sodium Chloride 1,000 ml @ 400 mls/hr Q2H30M PRN IV PATENCY; Start 02/09/18 at 08:21; Stop 02/09/18 at 20:20 Info (PHARMACY MONITORING -- do not chart) 1 each PRN DAILY PRN MC SEE COMMENTS ; Start 02/09/18 at 08:30; Status UNV Info (PHARMACY MONITORING -- do not chart) 1 each PRN DAILY PRN MC SEE COMMENTS ; Start 02/09/18 at 08:30 Diphenhydramine HCl (Benadryl) 50 mg 1X ONCE IVP Last administered on at 09:06; Start 02/09/18 at 08:30; Stop 02/09/18 at 08:31; Status DC Lidocaine HCl (Xylocaine-Mpf 2% Vial) 2 ml STK-MED ONCE .ROUTE ; Start at 08:40; Stop 02/09/18 at 08:41; Status DC Linezolid/Dextrose 300 ml @ 300 mls/hr Q12HR IV ; Start 02/09/18 at 10:00 Gentamicin Sulfate 1 each PRN DAILY PRN MC SEE COMMENTS; Start 02/09/18 at 09: 30 Metronidazole 100 ml @ 100 mls/hr Q8HRS IV ; Start 02/09/18 at 14:00 Gentamicin Sulfate 140 mg/ Dextrose 103.5 ml @ 207 mls/hr 1X ONCE IV ; Start 02/09/18 at 12:00; Stop 02/09/18 at 12:29 Active Scripts Active Percocet 10-325 Mg Tablet (Oxycodone/Acetaminophen) 1 Each Tablet 1 Tab PO Q4HRS Brilinta (Ticagrelor) 90 Mg Tablet 90 Mg PO BID 30 Days Morphine Sulfate Er (Morphine Sulfate) 15 Mg Tablet.er 15 Mg PO BID Reported Brilinta (Ticagrelor) 90 Mg Tablet 90 Mg PO BID Lidocaine 1 Each Adh..patch 1 Each TP PRN DAILY PRN Calcitriol 0.25 Mcg Capsule 1 Cap PO DAILY Tegretol (Carbamazepine) 200 Mg Tablet 1 Tab PO BID Tramadol Hcl 50 Mg Tablet 50 Mg PO Q4HRS PRN Lantus Solostar (Insulin Glargine,Hum.rec.anlog) 100 Unit/1 Ml Insuln.pen 22 Unit SQ QHS Diflucan (Fluconazole) 100 Mg Tablet 100 Mg PO PRN Carvedilol 3.125 Mg Tablet 12.5 Mg PO BID Erythromycin (Erythromycin Base) 250 Mg Capsule.dr 250 Mg PO BID Cardizem Cd (Diltiazem Hcl) 180 Mg Cap.er.24h 120 Mg PO DAILY Amiodarone Hcl 200 Mg Tablet 1 Tab PO DAILY Nystatin 15 Gm Powder 1 Susanna TP PRN BID PRN Proventil Hfa Inhaler (Albuterol Sulfate) 6.7 Gm Hfa.aer.ad 2 Puff IH BID PRN Zofran (Ondansetron Hcl) 4 Mg Tablet 4 Mg PO Q6-8HRS PRN Nephro-Shabbir Tablet (Folic Acid/Vitamin B Comp W-C) 0.8 Mg Tablet 1 Tab PO DAILY Tricor (Fenofibrate Nanocrystallized) 145 Mg Tablet 1 Tab PO HS Lipitor (Atorvastatin Calcium) 80 Mg Tablet 80 Mg PO HS Niacin 500 Mg Tablet 500 Mg PO HS Novolog (Insulin Aspart) 100 Unit/1 Ml Cartridge 0 SQ TIDAC sliding scale Aspirin 325 Mg Tablet 325 Mg PO DAILY Furosemide 80 Mg Tablet 80 Mg PO BID Docusate Sodium 100 Mg Capsule 1 Cap PO PRN PRN Nitrostat (Nitroglycerin) 0.4 Mg Tab.subl 0.4 Mg SL PRN Q5MIN PRN Take as needed for chest pain Vitals/I & O Vital Sign - Last 24 Hours 02/08/18 02/08/18 02/08/18 02/08/18 12:27 12:56 12:56 15:00 Temp 98.3 98.3 Pulse 69 Resp 19 17 17 16 B/P (MAP) 113/46 (68) Pulse Ox 100 O2 Delivery Room Air Nasal Cannula O2 Flow Rate 2.0 02/08/18 02/08/18 02/08/18 02/08/18 17:00 19:42 20:00 20:39 Temp 97.7 97.7 Pulse 59 69 Resp 16 B/P (MAP) 113/38 135/52 (79) Pulse Ox 99 O2 Delivery Room Air Room Air Room Air 02/08/18 02/08/18 02/09/18 02/09/18 20:41 23:17 00:39 02:34 Temp 97.5 97.5 Pulse 71 Resp 16 B/P (MAP) 124/50 (74) Pulse Ox 99 O2 Delivery Room Air Room Air Room Air Room Air 02/09/18 02/09/18 02/09/18 02/09/18 02:37 03:04 03:37 03:54 Temp 97.9 97.9 Pulse 72 Resp 16 B/P (MAP) 126/52 (76) Pulse Ox 99 O2 Delivery Room Air Room Air Room Air Room Air 02/09/18 02/09/18 02/09/18 07:00 08:00 08:22 Temp 98.1 98.1 Pulse 73 Resp 18 18 B/P (MAP) 120/56 (77) Pulse Ox 98 O2 Delivery Room Air Room Air Room Air Intake and Output 02/08/18 02/08/18 02/09/18 15:00 23:00 07:00 Intake Total 400 ml 200 ml Output Total 0 ml Balance 400 ml 200 ml MARY GRACE SANDOVAL APRN Feb 09, 2018 11:33
[2018-02-09] MEDS: GENTAMICIN PER PHARMACY. MC PRN ×2 (11:38→14:56)
[2018-02-09] MEDS ORDERED: GENTAMICIN SULFATE IV ONE (12:00)
[2018-02-09] MEDS ORDERED: DEXTROSE 5% IV ONE (12:00)
[2018-02-09] MEDS: LACTOBACILLUS RHAMNOSUS GG 1 CAPSULE. PO SCH ×2 (12:39→19:31)
[2018-02-09] MEDS: FOLIC/VIT B COMP W-C (RENAL) TABLET. PO SCH (12:39)
[2018-02-09] MEDS: ASPIRIN ENTERIC COATED 81 MG TABLET.DR. PO SCH (12:39)
[2018-02-09] MEDS: ERYTHROMYCIN BASE 250 MG TABLET PO SCH ×2 (12:39→19:32)
[2018-02-09] MEDS: CARVEDILOL 12.5 MG TABLET. PO SCH ×2 (12:39→17:34)
[2018-02-09] MEDS: AMIODARONE HCL 200 MG TABLET. PO SCH (12:40)
[2018-02-09] MEDS: FUROSEMIDE 80 MG TABLET. PO SCH ×2 (12:40→14:00)
[2018-02-09] MEDS: carBAMazepine 200 MG TABLET PO SCH ×2 (12:41→19:32)
[2018-02-09] MEDS: TICAGRELOR 90 MG TABLET. PO SCH ×2 (12:41→19:32)
[2018-02-09] MEDS: POLYETHYLENE GLYCOL 3350 17 GM PACKET. PO SCH (12:43)
[2018-02-09] MEDS: CALCITRIOL 0.25 MCG CAPSULE. PO SCH (12:45)
[2018-02-09] MEDS: MORPHINE ER 15 MG TABLET.ER PO SCH ×2 (12:58→19:31)
--- NOTE | 2018-02-09 13:25 | PDOC ---
PROGRESS NOTES Chief Complaint Chief Complaint RIght groin sx wound infection s/p i and d 02/01 with wound vac on, wound cx + Kpna recent right leg PAD s/p R fem to pop bypass ESRD on dialysis h/o L BKA CAD w/ hx CABG, EF 50% Diabetic retinopathy Macular degeneration Cataracts H/O CAD with multiple stents Leukocytosis post steroids - trending down Right lower extremity swelling with superficial skin breakdown from injury on with abrasion and subsequent redness and swelling, treated with outpatient Keflex End-stage renal disease, on dialysis via AV fistula here ,at home per pt is on PD. ANTIBIOTIC ALLERGY TO MEROPENEM, PIPERACILLIN AND TAZOBACTAM CAUSING PEELING AND BLEEDING OF THE SKIN. ALSO, SULFA. TOLERATES KEFLEX AND HAS BEEN ON CEFAZOLIN, THOUGH HAS CAUSED ITCHING. H/o recent urinary tract infection, though urine cultures are negative, on Cipro POA for 5 days. A- fib, amiodarone therapy Gastroparesis, E. Mycin Left retinal optic disc drusen, bl blurry vision EGD 02/05 non erosive gatritis decubitus ulcer gastroparesis plan: fu with id, vascular, renal, gi on wound vac, wound care change abx to zyvox, genta, flagyl as per ID, given higher wbc, may need CT if cont not responding to abx. neg bcx so far. wound cx + kPNA cont home meds dvt ppx fu with ophthal as outpt ABD US as per ID for gallbladder dc select when stable History of Present Illness History of Present Illness Pt seen and examined Dw RN Sitting up right 02/09/18:higher wbc 19, more nausea. has n/o gastroparesis told me has decubitus ulcer, last pic 02/07 looks ok Vitals Vitals Vital Signs Date Time Temp Pulse Resp B/P (MAP) Pulse Ox O2 Delivery O2 Flow Rate FiO2 02/09/18 12:58 18 Room Air 02/09/18 12:43 83 137/49 02/09/18 07:00 98.1 98 98.1 02/08/18 15:00 2.0 Physical Exam Physical Exam GENERAL: Propped up in bed, in HD - sleepy OC/Op- dry LUNGS: Clear. HEART: S1, S2 regular. ABDOMEN: Soft, NT, ND EXTREMITIES: Left BKA. RLE less swollen and red; + wrinkles. Incision well-approx w/ alberto. Wound very clean and granulating. Heel without wound NEUROLOGIC: Alert and responds slowly SKIN: without rash Tunnelled RIJ (01/29) clean Left chest line is clean General: Alert, Oriented X3, Cooperative, No acute distress Heart: Regular rate, Normal S1, Normal S2, No murmurs, Gallops Lungs: Wheezing Abdomen: Normal bowel sounds, Soft, No tenderness, No hepatosplenomegaly, No masses Extremities: Other (wound inspected. Excellent muscle viability. Some washburn exudate peripheral edges superior and medial. Should respond to further wound suction dressing. measurements recorded.) Skin: No breakdown, Other (dehiscence of the proximal right common femoral incision and vein harvest site with lower extremity edema and mild cellulitis) Labs LABS Laboratory Tests Test 02/08/18 16:53 02/08/18 20:23 02/09/18 05:15 02/09/18 07:37 Glucose (Fingerstick) 125 mg/dL (70-99) 111 mg/dL (70-99) 99 mg/dL (70-99) White Blood Count 19.0 x10^3/uL (4.0-11.0) Red Blood Count 2.48 x10^6/uL (3.50-5.40) Hemoglobin 7.8 g/dL (12.0-15.5) Hematocrit 23.8 % (36.0-47.0) Mean Corpuscular Volume 96 fL (79-100) Mean Corpuscular Hemoglobin 32 pg (25-35) Mean Corpuscular Hemoglobin Concent 33 g/dL (31-37) Red Cell Distribution Width 17.0 % (11.5-14.5) Platelet Count 386 x10^3/uL (140-400) Neutrophils (%) (Auto) 88 % (31-73) Lymphocytes (%) (Auto) 4 % (24-48) Monocytes (%) (Auto) 7 % (0-9) Eosinophils (%) (Auto) 0 % (0-3) Basophils (%) (Auto) 1 % (0-3) Neutrophils # (Auto) 16.6 x10^3uL (1.8-7.7) Lymphocytes # (Auto) 0.8 x10^3/uL (1.0-4.8) Monocytes # (Auto) 1.2 x10^3/uL (0.0-1.1) Eosinophils # (Auto) 0.1 x10^3/uL (0.0-0.7) Basophils # (Auto) 0.2 x10^3/uL (0.0-0.2) Sodium Level 143 mmol/L (136-145) Potassium Level 4.4 mmol/L (3.5-5.1) Chloride Level 104 mmol/L (98-107) Carbon Dioxide Level 26 mmol/L (21-32) Anion Gap 13 (6-14) Blood Urea Nitrogen 30 mg/dL (7-20) Creatinine 5.2 mg/dL (0.6-1.0) Estimated GFR (Cockcroft-Gault) 8.7 BUN/Creatinine Ratio 6 (6-20) Glucose Level 117 mg/dL (70-99) Calcium Level 8.3 mg/dL (8.5-10.1) Total Bilirubin 0.5 mg/dL (0.2-1.0) Aspartate Amino Transf (AST/SGOT) 12 U/L (15-37) Alanine Aminotransferase (ALT/SGPT) 13 U/L (14-59) Alkaline Phosphatase 94 U/L (46-116) Total Protein 5.2 g/dL (6.4-8.2) Albumin 2.0 g/dL (3.4-5.0) Albumin/Globulin Ratio 0.6 (1.0-1.7) Lipase 198 U/L (73-393) Assessment and Plan Assessmemt and Plan Problems Medical Problems: (1) Chronic renal failure Status: Acute Comment Review of Relevant I have reviewed the following items bert (where applicable) has been applied. Labs Laboratory Tests Test 02/07/18 16:33 02/07/18 20:31 02/08/18 03:30 02/08/18 08:11 Glucose (Fingerstick) 99 mg/dL (70-99) 92 mg/dL (70-99) 120 mg/dL (70-99) White Blood Count 16.5 x10^3/uL (4.0-11.0) Red Blood Count 2.38 x10^6/uL (3.50-5.40) Hemoglobin 7.6 g/dL (12.0-15.5) Hematocrit 22.4 % (36.0-47.0) Mean Corpuscular Volume 94 fL (79-100) Mean Corpuscular Hemoglobin 32 pg (25-35) Mean Corpuscular Hemoglobin Concent 34 g/dL (31-37) Red Cell Distribution Width 16.7 % (11.5-14.5) Platelet Count 348 x10^3/uL (140-400) Neutrophils (%) (Auto) 86 % (31-73) Lymphocytes (%) (Auto) 7 % (24-48) Monocytes (%) (Auto) 7 % (0-9) Eosinophils (%) (Auto) 0 % (0-3) Basophils (%) (Auto) 0 % (0-3) Neutrophils # (Auto) 14.2 x10^3uL (1.8-7.7) Lymphocytes # (Auto) 1.1 x10^3/uL (1.0-4.8) Monocytes # (Auto) 1.1 x10^3/uL (0.0-1.1) Eosinophils # (Auto) 0.1 x10^3/uL (0.0-0.7) Basophils # (Auto) 0.0 x10^3/uL (0.0-0.2) Sodium Level 142 mmol/L (136-145) Potassium Level 3.8 mmol/L (3.5-5.1) Chloride Level 104 mmol/L (98-107) Carbon Dioxide Level 30 mmol/L (21-32) Anion Gap 8 (6-14) Blood Urea Nitrogen 23 mg/dL (7-20) Creatinine 4.2 mg/dL (0.6-1.0) Estimated GFR (Cockcroft-Gault) 11.1 BUN/Creatinine Ratio 5 (6-20) Glucose Level 170 mg/dL (70-99) Calcium Level 8.3 mg/dL (8.5-10.1) Total Bilirubin 0.4 mg/dL (0.2-1.0) Aspartate Amino Transf (AST/SGOT) 15 U/L (15-37) Alanine Aminotransferase (ALT/SGPT) 13 U/L (14-59) Alkaline Phosphatase 91 U/L (46-116) Total Protein 5.0 g/dL (6.4-8.2) Albumin 2.0 g/dL (3.4-5.0) Albumin/Globulin Ratio 0.7 (1.0-1.7) Vitamin B12 Level 653 pg/mL (247-911) Thyroid Stimulating Hormone (TSH) 3.684 uIU/mL (0.358-3.74) Random Vancomycin Level 20.4 mcg/mL Test 02/08/18 10:39 02/08/18 16:53 02/08/18 20:23 02/09/18 05:15 Glucose (Fingerstick) 107 mg/dL (70-99) 125 mg/dL (70-99) 111 mg/dL (70-99) White Blood Count 19.0 x10^3/uL (4.0-11.0) Red Blood Count 2.48 x10^6/uL (3.50-5.40) Hemoglobin 7.8 g/dL (12.0-15.5) Hematocrit 23.8 % (36.0-47.0) Mean Corpuscular Volume 96 fL (79-100) Mean Corpuscular Hemoglobin 32 pg (25-35) Mean Corpuscular Hemoglobin Concent 33 g/dL (31-37) Red Cell Distribution Width 17.0 % (11.5-14.5) Platelet Count 386 x10^3/uL (140-400) Neutrophils (%) (Auto) 88 % (31-73) Lymphocytes (%) (Auto) 4 % (24-48) Monocytes (%) (Auto) 7 % (0-9) Eosinophils (%) (Auto) 0 % (0-3) Basophils (%) (Auto) 1 % (0-3) Neutrophils # (Auto) 16.6 x10^3uL (1.8-7.7) Lymphocytes # (Auto) 0.8 x10^3/uL (1.0-4.8) Monocytes # (Auto) 1.2 x10^3/uL (0.0-1.1) Eosinophils # (Auto) 0.1 x10^3/uL (0.0-0.7) Basophils # (Auto) 0.2 x10^3/uL (0.0-0.2) Sodium Level 143 mmol/L (136-145) Potassium Level 4.4 mmol/L (3.5-5.1) Chloride Level 104 mmol/L (98-107) Carbon Dioxide Level 26 mmol/L (21-32) Anion Gap 13 (6-14) Blood Urea Nitrogen 30 mg/dL (7-20) Creatinine 5.2 mg/dL (0.6-1.0) Estimated GFR (Cockcroft-Gault) 8.7 BUN/Creatinine Ratio 6 (6-20) Glucose Level 117 mg/dL (70-99) Calcium Level 8.3 mg/dL (8.5-10.1) Total Bilirubin 0.5 mg/dL (0.2-1.0) Aspartate Amino Transf (AST/SGOT) 12 U/L (15-37) Alanine Aminotransferase (ALT/SGPT) 13 U/L (14-59) Alkaline Phosphatase 94 U/L (46-116) Total Protein 5.2 g/dL (6.4-8.2) Albumin 2.0 g/dL (3.4-5.0) Albumin/Globulin Ratio 0.6 (1.0-1.7) Lipase 198 U/L (73-393) Test 02/09/18 07:37 Glucose (Fingerstick) 99 mg/dL (70-99) Laboratory Tests Test 02/08/18 16:53 02/08/18 20:23 02/09/18 05:15 02/09/18 07:37 Glucose (Fingerstick) 125 mg/dL (70-99) 111 mg/dL (70-99) 99 mg/dL (70-99) White Blood Count 19.0 x10^3/uL (4.0-11.0) Red Blood Count 2.48 x10^6/uL (3.50-5.40) Hemoglobin 7.8 g/dL (12.0-15.5) Hematocrit 23.8 % (36.0-47.0) Mean Corpuscular Volume 96 fL (79-100) Mean Corpuscular Hemoglobin 32 pg (25-35) Mean Corpuscular Hemoglobin Concent 33 g/dL (31-37) Red Cell Distribution Width 17.0 % (11.5-14.5) Platelet Count 386 x10^3/uL (140-400) Neutrophils (%) (Auto) 88 % (31-73) Lymphocytes (%) (Auto) 4 % (24-48) Monocytes (%) (Auto) 7 % (0-9) Eosinophils (%) (Auto) 0 % (0-3) Basophils (%) (Auto) 1 % (0-3) Neutrophils # (Auto) 16.6 x10^3uL (1.8-7.7) Lymphocytes # (Auto) 0.8 x10^3/uL (1.0-4.8) Monocytes # (Auto) 1.2 x10^3/uL (0.0-1.1) Eosinophils # (Auto) 0.1 x10^3/uL (0.0-0.7) Basophils # (Auto) 0.2 x10^3/uL (0.0-0.2) Sodium Level 143 mmol/L (136-145) Potassium Level 4.4 mmol/L (3.5-5.1) Chloride Level 104 mmol/L (98-107) Carbon Dioxide Level 26 mmol/L (21-32) Anion Gap 13 (6-14) Blood Urea Nitrogen 30 mg/dL (7-20) Creatinine 5.2 mg/dL (0.6-1.0) Estimated GFR (Cockcroft-Gault) 8.7 BUN/Creatinine Ratio 6 (6-20) Glucose Level 117 mg/dL (70-99) Calcium Level 8.3 mg/dL (8.5-10.1) Total Bilirubin 0.5 mg/dL (0.2-1.0) Aspartate Amino Transf (AST/SGOT) 12 U/L (15-37) Alanine Aminotransferase (ALT/SGPT) 13 U/L (14-59) Alkaline Phosphatase 94 U/L (46-116) Total Protein 5.2 g/dL (6.4-8.2) Albumin 2.0 g/dL (3.4-5.0) Albumin/Globulin Ratio 0.6 (1.0-1.7) Lipase 198 U/L (73-393) Microbiology 02/06/18 Blood Culture - Preliminary, Resulted NO GROWTH AFTER 3 DAYS 01/27/18 Anaerobic/Aerobic Culture - Final, Complete 01/27/18 Anaerobic Culture Result 1 (ROSALIND) - Final, Complete 01/27/18 Aerobic Culture - Final, Complete 01/27/18 Aerobic Culture Result 1 (ROSALIND) - Final, Complete 01/27/18 Antimicrobic Susceptibility - Final, Complete 01/27/18 Gram Stain - Final, Complete 01/27/18 Gram Stain Result 1 (ROSALIND) - Final, Complete 01/27/18 Gram Stain Result 2 (ROSALIND) - Final, Complete Medications Current Medications Hydromorphone HCl (Dilaudid) 2 mg 1X ONCE IV Last administered on 01/26/18at 22 :39; Start 01/26/18 at 22:00; Stop 01/26/18 at 22:01; Status DC Vancomycin HCl (Vanco Per Pharmacy) 1 each PRN DAILY PRN MC SEE COMMENTS Last administered on 01/31/18at 17:20; Start 01/26/18 at 22:45; Stop 02/01/18 at 11:41 ; Status DC Vancomycin HCl 1.75 gm/Sodium Chloride 500 ml @ 250 mls/hr 1X ONCE IV Last administered on 01/26/18at 23:53; Start 01/26/18 at 23:00; Stop 01/27/18 at 00:59 ; Status DC Ondansetron HCl (Zofran) 4 mg PRN Q8HRS PRN IV NAUSEA/VOMITING 1ST CHOICE; Start 01/26/18 at 23:15; Stop 01/27/18 at 23:14; Status DC Sodium Chloride 1,000 ml @ 75 mls/hr [id number] IV Last administered on at 00:39; Start 01/26/18 at 23:30; Stop 01/27/18 at 23:29; Status DC Pharmacy Consult (C.diff Med Screen By Rx) 1 each 1X ONCE MC ; Start 01/27/18 at 01:00; Stop 01/27/18 at 01:01; Status Cancel Influenza Virus Vaccine (Afluria Trivalent [id number] Syringe) 0.5 ml ONCE ONCE VAX IM Last administered on 01/27/18at 09:00; Start 01/27/18 at 09:00; Stop 01/27/18 at 09:01; Status DC Vancomycin HCl (Vancomycin Random Level) 1 each 1X ONCE MC Last administered on 01/28/18at 05:00; Start 01/28/18 at 05:00; Stop 01/28/18 at 05:01; Status DC Hydromorphone HCl (Dilaudid) 1 mg PRN Q3HRS PRN IV SEVERE PAIN Last administered on 02/09/18at 08:22; Start 01/27/18 at 03:30 Ondansetron HCl (Zofran) 4 mg PRN Q6HRS PRN IV NAUSEA/VOMITING; Start 01/27/18 at 10:45; Stop 01/27/18 at 18:00; Status DC Fentanyl Citrate (Fentanyl 2ml Vial) 25 mcg PRN Q5MIN PRN IV MILD PAIN; Start 01/27/18 at 10:45; Stop 01/27/18 at 18:00; Status DC Fentanyl Citrate (Fentanyl 2ml Vial) 50 mcg PRN Q5MIN PRN IV MODERATE TO SEVERE PAIN; Start 01/27/18 at 10:45; Stop 01/27/18 at 18:00; Status DC Morphine Sulfate (Morphine Sulfate) 1 mg PRN Q10MIN PRN IV SEVERE PAIN Last administered on 01/27/18at 16:28; Start 01/27/18 at 10:45; Stop 01/27/18 at 18:00 ; Status DC Ringer's Solution 1,000 ml @ 30 mls/hr Q24H IV Last administered on 01/27/18at 10:35; Start 01/27/18 at 10:35; Stop 01/27/18 at 19:36; Status DC Lidocaine HCl (Xylocaine-Mpf 1% 2ml Vial) 2 ml 1X PRN PRN ID IV START; Start 01/27/18 at 10:45; Stop 01/27/18 at 18:00; Status DC Hydromorphone HCl (Dilaudid) 0.5 mg PRN Q10MIN PRN IV SEV PAIN, Second choice Last administered on 01/27/18at 15:59; Start 01/27/18 at 10:45; Stop 01/27/18 at 18:00; Status DC Prochlorperazine Edisylate (Compazine) 5 mg PACU PRN PRN IV NAUSEA, MRX1; Start 01/27/18 at 10:45; Stop 01/27/18 at 18:00; Status DC Amiodarone HCl (Cordarone) 200 mg DAILY PO Last administered on 02/09/18at 12: 40; Start 01/27/18 at 12:30 Aspirin (Anthony Aspirin) 325 mg DAILY PO Last administered on 01/28/18at 09:13; Start 01/27/18 at 12:30; Stop 01/28/18 at 14:26; Status DC Carbamazepine (TEGretol) 200 mg BID PO Last administered on 02/09/18 12:41; Start 01/27/18 at 12:30 Carvedilol (Coreg) 12.5 mg BIDWMEALS PO Last administered on 02/09/18 12:39; Start 01/27/18 at 12:30 Vitamin B Complex/ Vitamin C (Melly-Shabbir) 1 tab DAILY PO Last administered on 12:39; Start 01/27/18 at 12:30 Furosemide (Lasix) 80 mg [id number] PO Last administered on 02/09/18 12:40; Start 01/27/18 at 12:30 Insulin Glargine (Lantus) 22 units QHS SQ Last administered on 02/06/18 22:21 ; Start 01/27/18 at 21:00 Morphine Sulfate (Ms Contin) 15 mg BID PO Last administered on 02/09/18 12:58 ; Start 01/27/18 at 12:30 Nitroglycerin (Nitrostat) 0.4 mg PRN Q5MIN PRN SL CHEST PAIN; Start 01/27/18 at 12:00 Nystatin (Nystop) 1 susanna PRN BID PRN TP SKIN BREAKDOWN; Start 01/27/18 at 12:00 Tramadol HCl (Ultram) 50 mg PRN Q4HRS PRN PO HEADACHE Last administered on 04:36; Start 01/27/18 at 12:00 Non-Formulary Medication (Albuterol Sulfate (Proventil Hfa Inhaler)) 2 puff BID PRN IH FOR ASTHMA; Start 01/27/18 at 12:00; Status UNV Atorvastatin Calcium (Lipitor) 80 mg QHS PO Last administered on 02/08/18 20: 39; Start 01/27/18 at 21:00 Calcitriol (Rocaltrol) 0.25 mcg DAILY PO Last administered on 02/09/18 12:45 ; Start 01/27/18 at 12:30 Diltiazem HCl (Cardizem 24hr Cd) 120 mg DAILY PO Last administered on 12:43; Start 01/27/18 at 12:30 Erythromycin (E-Mycin) 250 mg BID PO Last administered on 10/16/18at 12:39; Start 01/27/18 at 21:00 Fenofibrate (Lofibra) 134 mg QHS PO Last administered on 02/08/18at 20:40; Start 01/27/18 at 21:00 Non-Formulary Medication (Fluconazole (Diflucan)) 100 mg PRN PO ; Start at 12:00; Status UNV Lidocaine (Lidoderm) 1 patch PRN DAILY PRN TD PAIN; Start 01/27/18 at 09:00 Niacin (Slo-Niacin) 500 mg QHS PO Last administered on 02/08/18at 20:39; Start 01/27/18 at 21:00 Ondansetron HCl (Zofran Odt) 4 mg PRN Q6HRS PRN PO NAUSEA/VOMITING Last administered on 02/07/18at 16:53; Start 01/27/18 at 12:15 Miscellaneous (Lidoderm Patch Removal) 1 ea QHS MC Last administered on at 20:57; Start 01/27/18 at 21:00 Albuterol Sulfate (Ventolin Neb Soln) 2.5 mg PRN BID PRN NEB SHORTNESS OF BREATH Last administered on 01/27/18at 21:59; Start 01/27/18 at 12:30 Lidocaine HCl (Lidocaine 1% 50ml Vial) 50 ml 1X ONCE INJ Last administered on 01/27/18at 14:06; Start 01/27/18 at 12:45; Stop 01/27/18 at 12:46; Status DC Hydromorphone HCl (Dilaudid) 2 mg STK-MED ONCE .ROUTE ; Start 01/27/18 at 12:36 ; Stop 01/27/18 at 12:38; Status DC Propofol 20 ml @ As Directed STK-MED ONCE IV ; Start 01/27/18 at 12:38; Stop at 12:39; Status DC Bacitracin 72770 unit/Sodium Chloride 3,000 ml @ 0 mls/hr 1X ONCE IR ; Start 01/27/18 at 13:15; Stop 01/27/18 at 13:16; Status Cancel Dexamethasone Sodium Phosphate (Decadron) 20 mg STK-MED ONCE .ROUTE ; Start 01/27/18 at 13:11; Stop 01/27/18 at 13:12; Status DC Ondansetron HCl (Zofran) 4 mg STK-MED ONCE .ROUTE ; Start 01/27/18 at 13:11; Stop 01/27/18 at 13:12; Status DC Sevoflurane (Ultane) 30 ml STK-MED ONCE IH ; Start 01/27/18 at 13:11; Stop 01/27 at 13:12; Status DC Bacitracin (Bacitracin) 50,000 unit STK-MED ONCE IRR Last administered on at 13:58; Start 01/27/18 at 12:14; Stop 01/27/18 at 13:16; Status DC Clopidogrel Bisulfate (Plavix) 75 mg DAILYWBKFT PO Last administered on at 09:13; Start 01/28/18 at 08:00; Stop 01/28/18 at 14:28; Status DC Hydromorphone HCl (Dilaudid) 2 mg STK-MED ONCE .ROUTE ; Start 01/27/18 at 15:38 ; Stop 01/27/18 at 15:40; Status DC Gentamicin Sulfate 235 mg/ Dextrose 105.875 ml @ 105.875 mls/hr 1X ONCE IV Last administered on 01/27/18at 19:56; Start 01/27/18 at 16:00; Stop 01/27/18 at 16:59; Status DC Lactobacillus Rhamnosus (Culturelle) 1 cap BID PO Last administered on at 12:39; Start 01/27/18 at 21:00 Cefepime HCl 1 gm/ Dextrose 50 ml @ 100 mls/hr DAILY IV ; Start 01/29/18 at 09: 00; Status UNV Metronidazole 100 ml @ 100 mls/hr Q12HR IV Last administered on 02/02/18at 21: 00; Start 01/28/18 at 10:00; Stop 02/03/18 at 10:49; Status DC Cefepime HCl (Maxipime) 1 gm Q24H IVP Last administered on 02/03/18at 10:54; Start 01/28/18 at 10:00; Stop 02/04/18 at 12:02; Status DC Lidocaine HCl (Xylocaine-Mpf 2% Vial) 2 ml STK-MED ONCE .ROUTE ; Start 01/28/18 at 11:41; Stop 01/28/18 at 11:42; Status DC Sodium Chloride 1,000 ml @ 1,000 mls/hr Q1H PRN IV hypotension; Start 01/28/18 at 12:09; Stop 01/28/18 at 18:08; Status DC Info (PHARMACY MONITORING -- do not chart) 1 each PRN DAILY PRN MC SEE COMMENTS ; Start 01/28/18 at 12:15; Status UNV Info (PHARMACY MONITORING -- do not chart) 1 each PRN DAILY PRN MC SEE COMMENTS ; Start 01/28/18 at 12:15; Stop 01/31/18 at 09:10; Status DC Lidocaine HCl (Xylocaine-Mpf 2% Vial) 2 ml 1X ONCE INJ ; Start 01/28/18 at 12: 15; Stop 01/28/18 at 12:21; Status DC Ticagrelor (Brilinta) 90 mg BID PO Last administered on 02/09/18at 12:41; Start 01/28/18 at 21:00 Diphenhydramine HCl (Benadryl) 25 mg PRN Q6HRS PRN PO ITCHING; Start 01/28/18 at 14:15 Aspirin (Ecotrin) 81 mg DAILYWBKFT PO Last administered on 02/09/18at 12:39; Start 01/29/18 at 08:00 Insulin Human Lispro (HumaLOG) 0-5 UNITS TIDWMEALS SQ Last administered on at 09:07; Start 01/28/18 at 17:00 Dextrose (Dextrose 50%-Water Syringe) 12.5 gm PRN Q15MIN PRN IV SEE COMMENTS Last administered on 02/05/18at 08:50; Start 01/28/18 at 14:45 Hydralazine HCl (Apresoline) 10 mg PRN TID PRN PO hypertension; Start 01/28/18 at 14:45 Oxycodone/ Acetaminophen (Percocet 10/325) 1 tab PRN Q4HRS PRN PO pain SEVERE Last administered on 02/09/18at 02:37; Start 01/29/18 at 07:45 Promethazine HCl (Phenergan Supp) 12.5 mg 1X ONCE [place] ; Start 01/29/18 at 12:15 ; Stop 01/29/18 at 12:36; Status DC Promethazine HCl (Phenergan Im) 12.5 mg 1X ONCE IM ; Start 01/29/18 at 12:45; Stop 01/29/18 at 12:46; Status DC Lidocaine/ Epinephrine (LIDOCAINE 1%-EPI 1:100,000 Multi-Dose) 20 ml STK-MED ONCE .ROUTE ; Start 01/29/18 at 12:45; Stop 01/29/18 at 12:47; Status DC Heparin Sodium (Porcine) (Hep Lock Adult) 500 unit STK-MED ONCE IV ; Start 01/29 at 12:45; Stop 01/29/18 at 12:47; Status DC Morphine Sulfate (Morphine Sulfate) 10 mg STK-MED ONCE .ROUTE ; Start 01/29/18 at 13:23; Stop 01/29/18 at 13:25; Status DC Midazolam HCl (Versed) 2 mg STK-MED ONCE .ROUTE ; Start 01/29/18 at 13:23; Stop 01/29/18 at 13:25; Status DC Morphine Sulfate (Morphine Sulfate) 1 mg PRN Q10MIN PRN IV SEVERE PAIN Last administered on 02/01/18at 15:46; Start 02/01/18 at 07:00; Stop 02/02/18 at 06:59 ; Status DC Ringer's Solution 1,000 ml @ 30 mls/hr Q24H IV ; Start 02/01/18 at 07:00; Stop 02/01/18 at 18:59; Status DC Lidocaine HCl (Xylocaine-Mpf 1% 2ml Vial) 2 ml PRN 1X PRN ID PRIOR TO IV START ; Start 02/01/18 at 07:00; Stop 02/02/18 at 06:59; Status DC Hydromorphone HCl (Dilaudid) 0.5 mg PRN Q10MIN PRN IV SEV PAIN, Second choice Last administered on 02/01/18at 16:08; Start 02/01/18 at 07:00; Stop 02/02/18 at 06:59; Status DC Prochlorperazine Edisylate (Compazine) 5 mg PACU PRN PRN IV NAUSEA, MRX1; Start 02/01/18 at 07:00; Stop 02/02/18 at 06:59; Status DC Lidocaine/ Epinephrine (LIDOCAINE 1%-EPI 1:100,000 Multi-Dose) 8 ml 1X ONCE IJ Last administered on 01/29/18at 14:01; Start 01/29/18 at 14:00; Stop 01/29/18 at 14:17; Status DC Heparin Sodium (Porcine) (Hep Lock Adult) 500 unit 1X ONCE IV Last administered on 01/29/18at 14:04; Start 01/29/18 at 14:00; Stop 01/29/18 at 14:17 ; Status DC Morphine Sulfate (Morphine Sulfate) 5 mg 1X ONCE IV Last administered on at 14:01; Start 01/29/18 at 14:00; Stop 01/29/18 at 14:17; Status DC Ondansetron HCl (Zofran) 4 mg PRN Q6HRS PRN IV NAUSEA/VOMITING 1ST CHOICE Last administered on 02/09/18at 08:22; Start 01/29/18 at 14:45 Vancomycin HCl 500 mg/Sodium Chloride 100 ml @ 100 mls/hr 1X ONCE IV Last administered on 01/29/18at 21:04; Start 01/29/18 at 18:00; Stop 01/29/18 at 18:59 ; Status DC Sodium Chloride 1,000 ml @ 1,000 mls/hr Q1H PRN IV hypotension; Start 01/30/18 at 13:09; Stop 01/30/18 at 19:08; Status DC Sodium Chloride (Normal Saline Flush) 10 ml 1X PRN PRN IV AP catheter pack; Start 01/30/18 at 13:15; Stop 01/31/18 at 13:14; Status DC Sodium Chloride (Normal Saline Flush) 10 ml 1X PRN PRN IV [employer]TE [employer] catheter pack; Start 01/30/18 at 13:15; Stop 01/31/18 at 13:14; Status DC Sodium Chloride 1,000 ml @ 400 mls/hr Q2H30M PRN IV PATENCY; Start 01/30/18 at 13:09; Stop 01/31/18 at 01:08; Status DC Info (PHARMACY MONITORING -- do not chart) 1 each PRN DAILY PRN MC SEE COMMENTS ; Start 01/30/18 at 13:15; Stop 01/30/18 at 13:17; Status DC Info (PHARMACY MONITORING -- do not chart) 1 each PRN DAILY PRN MC SEE COMMENTS ; Start 01/30/18 at 13:15; Stop 02/04/18 at 07:27; Status DC Lidocaine HCl (Lidocaine 1% 50ml Vial) 50 ml 1X ONCE INJ ; Start 01/30/18 at 15 :45; Stop 01/30/18 at 15:46; Status DC Vancomycin HCl 500 mg/Sodium Chloride 100 ml @ 100 mls/hr ONCE ONCE IV Last administered on 01/30/18at 20:49; Start 01/30/18 at 18:00; Stop 01/30/18 at 18:59 ; Status DC Cefazolin Sodium 1 gm/Sodium Chloride 500 ml @ 500 mls/hr 1X ONCE IRR ; Start 02/01/18 at 06:00; Stop 02/01/18 at 06:59; Status DC Lidocaine HCl (Xylocaine-Mpf 2% Vial) 2 ml STK-MED ONCE .ROUTE ; Start 01/28/18 at 12:00; Stop 02/01/18 at 08:30; Status DC Darbepoetin Mauricio (Aranesp) 60 mcg [id number] SQ Last administered on 02/08/18at 20:41; Start 02/01/18 at 21:00 Cellulose (Surgicel Fibrillar 1x2) 1 each STK-MED ONCE .ROUTE ; Start 02/01/18 at 12:05; Stop 02/01/18 at 13:06; Status DC Lidocaine HCl (Xylocaine 1% Pf 30ml Vial) 30 ml 1X ONCE INJ ; Start 02/01/18 at 13:15; Stop 02/01/18 at 13:18; Status DC Sodium Chloride 1,000 ml @ 75 mls/hr [id number] IV Last administered on at 00:15; Start 02/01/18 at 13:45; Stop 02/02/18 at 16:43; Status DC Morphine Sulfate (Morphine Sulfate) 10 mg STK-MED ONCE .ROUTE ; Start 02/01/18 at 14:24; Stop 02/01/18 at 14:25; Status DC Midazolam HCl (Versed) 2 mg STK-MED ONCE .ROUTE ; Start 02/01/18 at 14:24; Stop 02/01/18 at 14:25; Status DC Midazolam HCl (Versed) 2 mg STK-MED ONCE .ROUTE ; Start 02/01/18 at 14:25; Stop 02/01/18 at 14:26; Status DC Propofol 20 ml @ As Directed STK-MED ONCE IV ; Start 02/01/18 at 14:25; Stop at 14:26; Status DC Dexamethasone Sodium Phosphate (Decadron) 20 mg STK-MED ONCE .ROUTE ; Start 02/01/18 at 14:25; Stop 02/01/18 at 14:26; Status DC Ondansetron HCl (Zofran) 4 mg STK-MED ONCE .ROUTE ; Start 02/01/18 at 14:25; Stop 02/01/18 at 14:26; Status DC Bacitracin (Bacitracin) 50,000 unit STK-MED ONCE IRR Last administered on at 14:55; Start 02/01/18 at 13:32; Stop 02/01/18 at 14:32; Status DC Vancomycin HCl 500 mg/Sodium Chloride 100 ml @ 100 mls/hr [id number] IV Last administered on 02/02/18at 16:15; Start 02/02/18 at 16:00; Stop 02/04/18 at 12: 02; Status DC Sodium Chloride 1,000 ml @ 1,000 mls/hr Q1H PRN IV hypotension; Start 02/02/18 at 09:39; Stop 02/02/18 at 15:38; Status DC Albumin Human 200 ml @ 200 mls/hr 1X PRN PRN IV Hypotension; Start 02/02/18 at 09:45; Stop 02/02/18 at 15:44; Status DC Sodium Chloride 1,000 ml @ 400 mls/hr Q2H30M PRN IV PATENCY; Start 02/02/18 at 09:39; Stop 02/02/18 at 21:38; Status DC Info (PHARMACY MONITORING -- do not chart) 1 each PRN DAILY PRN MC SEE COMMENTS ; Start 02/02/18 at 09:45; Stop 02/04/18 at 07:28; Status DC Info (PHARMACY MONITORING -- do not chart) 1 each PRN DAILY PRN MC SEE COMMENTS ; Start 02/02/18 at 09:45; Status UNV Prochlorperazine Edisylate (Compazine) 10 mg PRN Q6HRS PRN IV NAUSEA/VOMITING 2ND CHOICE Last administered on 02/02/18at 23:23; Start 02/02/18 at 11:30 Vancomycin HCl (Vanco Per Pharmacy) 1 each PRN DAILY PRN MC SEE COMMENTS Last administered on 02/02/18at 13:57; Start 02/02/18 at 14:00; Stop 02/04/18 at 12: 02; Status DC Famotidine (Pepcid Vial) 20 mg DAILY IVP Last administered on 02/08/18at 09:00 ; Start 02/03/18 at 10:00; Stop 02/08/18 at 11:45; Status DC Alteplase, Recombinant (Cathflo) 2 mg 1X ONCE INT CAT Last administered on 03/14at 02:56; Start 02/04/18 at 03:00; Stop 02/04/18 at 03:01; Status DC Sodium Chloride 1,000 ml @ 1,000 mls/hr Q1H PRN IV hypotension; Start at 07:15; Stop 02/04/18 at 13:14; Status DC Albumin Human 200 ml @ 200 mls/hr 1X PRN PRN IV Hypotension Last administered on 02/04/18at 11:26; Start 02/04/18 at 07:15; Stop 02/04/18 at 13:14; Status DC Acetaminophen (Tylenol) 500 mg 1X PRN PRN PO MILD PAIN / TEMP; Start 02/04/18 at 07:15; Stop 02/05/18 at 07:14; Status DC Diphenhydramine HCl (Benadryl) 25 mg 1X PRN PRN IV ITCHING; Start 02/04/18 at 07:15; Stop 02/05/18 at 07:14; Status DC Diphenhydramine HCl (Benadryl) 25 mg 1X PRN PRN IV ITCHING; Start 02/04/18 at 07:15; Stop 02/05/18 at 07:14; Status DC Sodium Chloride 1,000 ml @ 400 mls/hr Q2H30M PRN IV PATENCY; Start 02/04/18 at 07:15; Stop 02/04/18 at 19:14; Status DC Info (PHARMACY MONITORING -- do not chart) 1 each PRN DAILY PRN MC SEE COMMENTS ; Start 02/04/18 at 07:15; Status Cancel Lidocaine HCl (Xylocaine-Mpf 2% Vial) 2 ml STK-MED ONCE .ROUTE ; Start at 09:43; Stop 02/04/18 at 09:44; Status DC Docusate Sodium (Colace) 100 mg PRN DAILY PRN PO CONSTIPATION Last administered on 02/07/18at 22:13; Start 02/04/18 at 10:30 Ceftriaxone Sodium 2 gm/ Dextrose 100 ml @ 200 mls/hr Q24H IV Last administered on 02/04/18at 14:24; Start 02/04/18 at 13:00; Stop 02/05/18 at 11 :49; Status DC Morphine Sulfate (Morphine Sulfate) 1 mg PRN Q10MIN PRN IV SEVERE PAIN; Start 02/05/18 at 07:00; Stop 02/06/18 at 06:59; Status DC Ringer's Solution 1,000 ml @ 30 mls/hr Q24H IV ; Start 02/05/18 at 07:00; Stop 02/05/18 at 18:59; Status DC Lidocaine HCl (Xylocaine-Mpf 1% 2ml Vial) 2 ml PRN 1X PRN ID IV START; Start 02/05/18 at 07:00; Stop 02/06/18 at 06:59; Status DC Hydromorphone HCl (Dilaudid) 0.5 mg PRN Q10MIN PRN IV SEV PAIN, Second choice; Start 02/05/18 at 07:00; Stop 02/06/18 at 06:59; Status DC Prochlorperazine Edisylate (Compazine) 5 mg PACU PRN PRN IV NAUSEA, MRX1; Start 02/05/18 at 07:00; Stop 02/06/18 at 06:59; Status DC Lidocaine HCl (Xylocaine-Mpf 2% Vial) 2 ml STK-MED ONCE .ROUTE ; Start at 10:00; Stop 02/05/18 at 08:19; Status DC Sodium Chloride 1,000 ml @ 75 mls/hr [id number] IV Last administered on at 07:00; Start 02/05/18 at 10:30; Stop 02/08/18 at 15:20; Status DC Cefepime HCl 1 gm/ Dextrose 50 ml @ 100 mls/hr DAILY IV ; Start 02/06/18 at 09 :00; Status UNV Vancomycin HCl (Vanco Per Pharmacy) 1 each PRN DAILY PRN MC SEE COMMENTS Last administered on 02/08/18at 14:35; Start 02/05/18 at 12:00; Stop 02/09/18 at 09 :50; Status DC Cefepime HCl (Maxipime) 1 gm Q24H IVP Last administered on 02/08/18at 14:49; Start 02/05/18 at 12:00; Stop 02/09/18 at 09:35; Status DC Propofol 20 ml @ As Directed STK-MED ONCE IV ; Start 02/05/18 at 12:08; Stop 02/05/18 at 12:09; Status DC Lidocaine HCl (Xylocaine-Mpf 2% Vial) 2 ml STK-MED ONCE .ROUTE ; Start at 12:08; Stop 02/05/18 at 12:09; Status DC Vancomycin HCl 1.5 gm/Sodium Chloride 500 ml @ 250 mls/hr 1X ONCE IV Last administered on 02/05/18at 14:05; Start 02/05/18 at 14:00; Stop 02/05/18 at 15 :59; Status DC Vancomycin HCl (Vancomycin Random Level) 1 each 1X ONCE MC Last administered on 02/06/18at 05:00; Start 02/06/18 at 05:00; Stop 02/06/18 at 05:01; Status DC Sodium Chloride 1,000 ml @ 1,000 mls/hr Q1H PRN IV hypotension; Start at 08:12; Stop 02/06/18 at 14:11; Status DC Sodium Chloride 1,000 ml @ 400 mls/hr Q2H30M PRN IV PATENCY; Start 02/06/18 at 08:12; Stop 02/06/18 at 20:11; Status DC Info (PHARMACY MONITORING -- do not chart) 1 each PRN DAILY PRN MC SEE COMMENTS ; Start 02/06/18 at 08:15; Status UNV Info (PHARMACY MONITORING -- do not chart) 1 each PRN DAILY PRN MC SEE COMMENTS ; Start 02/06/18 at 08:15; Status UNV Lidocaine HCl (Xylocaine-Mpf 1% 2ml Vial) 2 ml 1X ONCE ID Last administered on 02/06/18at 08:30; Start 02/06/18 at 08:30; Stop 02/06/18 at 08:31; Status DC Lidocaine HCl (Xylocaine-Mpf 2% Vial) 2 ml STK-MED ONCE .ROUTE ; Start at 08:32; Stop 02/06/18 at 08:33; Status DC Diphenhydramine HCl (Benadryl) 50 mg 1X ONCE IVP Last administered on at 09:10; Start 02/06/18 at 09:00; Stop 02/06/18 at 09:02; Status DC Vancomycin HCl (Vancomycin Random Level) 1 each 1X ONCE MC Last administered on 02/08/18at 05:00; Start 02/08/18 at 05:00; Stop 02/08/18 at 05:01; Status DC Lidocaine HCl (Xylocaine-Mpf 2% Vial) 2 ml STK-MED ONCE .ROUTE ; Start at 09:00; Stop 02/08/18 at 07:54; Status DC Polyethylene Glycol (miraLAX PACKET) 17 gm DAILY PO Last administered on at 12:43; Start 02/08/18 at 12:30 Famotidine (Pepcid) 20 mg QHS PO Last administered on 02/08/18at 20:39; Start 02/08/18 at 21:00 Vancomycin HCl 500 mg/Sodium Chloride 100 ml @ 100 mls/hr QTUTHSA IV ; Start 02/09/18 at 16:00; Stop 02/09/18 at 16:00; Status DC Sodium Chloride 1,000 ml @ 1,000 mls/hr Q1H PRN IV hypotension; Start at 08:21; Stop 02/09/18 at 14:20 Sodium Chloride 1,000 ml @ 400 mls/hr Q2H30M PRN IV PATENCY; Start 02/09/18 at 08:21; Stop 02/09/18 at 20:20 Info (PHARMACY MONITORING -- do not chart) 1 each PRN DAILY PRN MC SEE COMMENTS ; Start 02/09/18 at 08:30; Status UNV Info (PHARMACY MONITORING -- do not chart) 1 each PRN DAILY PRN MC SEE COMMENTS ; Start 02/09/18 at 08:30 Diphenhydramine HCl (Benadryl) 50 mg 1X ONCE IVP Last administered on at 09:06; Start 02/09/18 at 08:30; Stop 02/09/18 at 08:31; Status DC Lidocaine HCl (Xylocaine-Mpf 2% Vial) 2 ml STK-MED ONCE .ROUTE ; Start at 08:40; Stop 02/09/18 at 08:41; Status DC Linezolid/Dextrose 300 ml @ 300 mls/hr Q12HR IV Last administered on at 12:26; Start 02/09/18 at 10:00 Gentamicin Sulfate 1 each PRN DAILY PRN MC SEE COMMENTS Last administered on at 11:38; Start 02/09/18 at 09:30 Metronidazole 100 ml @ 100 mls/hr Q8HRS IV ; Start 02/09/18 at 14:00 Gentamicin Sulfate 140 mg/ Dextrose 103.5 ml @ 207 mls/hr 1X ONCE IV Last administered on 02/09/18at 12:26; Start 02/09/18 at 12:00; Stop 02/09/18 at 12 :29; Status DC Lubiprostone (Amitiza) 8 mcg BIDWMEALS PO ; Start 02/09/18 at 17:00 Active Scripts Active Percocet 10-325 Mg Tablet (Oxycodone/Acetaminophen) 1 Each Tablet 1 Tab PO Q4HRS Brilinta (Ticagrelor) 90 Mg Tablet 90 Mg PO BID 30 Days Morphine Sulfate Er (Morphine Sulfate) 15 Mg Tablet.er 15 Mg PO BID Reported Brilinta (Ticagrelor) 90 Mg Tablet 90 Mg PO BID Lidocaine 1 Each Adh..patch 1 Each TP PRN DAILY PRN Calcitriol 0.25 Mcg Capsule 1 Cap PO DAILY Tegretol (Carbamazepine) 200 Mg Tablet 1 Tab PO BID Tramadol Hcl 50 Mg Tablet 50 Mg PO Q4HRS PRN Lantus Solostar (Insulin Glargine,Hum.rec.anlog) 100 Unit/1 Ml Insuln.pen 22 Unit SQ QHS Diflucan (Fluconazole) 100 Mg Tablet 100 Mg PO PRN Carvedilol 3.125 Mg Tablet 12.5 Mg PO BID Erythromycin (Erythromycin Base) 250 Mg Capsule.dr 250 Mg PO BID Cardizem Cd (Diltiazem Hcl) 180 Mg Cap.er.24h 120 Mg PO DAILY Amiodarone Hcl 200 Mg Tablet 1 Tab PO DAILY Nystatin 15 Gm Powder 1 Susanna TP PRN BID PRN Proventil Hfa Inhaler (Albuterol Sulfate) 6.7 Gm Hfa.aer.ad 2 Puff IH BID PRN Zofran (Ondansetron Hcl) 4 Mg Tablet 4 Mg PO Q6-8HRS PRN Nephro-Shabbir Tablet (Folic Acid/Vitamin B Comp W-C) 0.8 Mg Tablet 1 Tab PO DAILY Tricor (Fenofibrate Nanocrystallized) 145 Mg Tablet 1 Tab PO HS Lipitor (Atorvastatin Calcium) 80 Mg Tablet 80 Mg PO HS Niacin 500 Mg Tablet 500 Mg PO HS Novolog (Insulin Aspart) 100 Unit/1 Ml Cartridge 0 SQ TIDAC sliding scale Aspirin 325 Mg Tablet 325 Mg PO DAILY Furosemide 80 Mg Tablet 80 Mg PO BID Docusate Sodium 100 Mg Capsule 1 Cap PO PRN PRN Nitrostat (Nitroglycerin) 0.4 Mg Tab.subl 0.4 Mg SL PRN Q5MIN PRN Take as needed for chest pain Vitals/I & O Vital Sign - Last 24 Hours 02/08/18 02/08/18 02/08/18 02/08/18 15:00 17:00 19:42 20:00 Temp 98.3 97.7 98.3 97.7 Pulse 69 59 69 Resp 16 16 B/P (MAP) 113/46 (68) 113/38 135/52 (79) Pulse Ox 100 99 O2 Delivery Nasal Cannula Room Air Room Air O2 Flow Rate 2.0 02/08/18 02/08/18 02/08/18 02/09/18 20:39 20:41 23:17 00:39 Temp 97.5 97.5 Pulse 71 Resp 16 B/P (MAP) 124/50 (74) Pulse Ox 99 O2 Delivery Room Air Room Air Room Air Room Air 02/09/18 02/09/18 02/09/18 02/09/18 02:34 02:37 03:37 03:54 Temp 97.9 97.9 Pulse 72 Resp 16 B/P (MAP) 126/52 (76) Pulse Ox 99 O2 Delivery Room Air Room Air Room Air Room Air 02/09/18 02/09/18 02/09/18 02/09/18 07:00 08:00 08:22 12:00 Temp 98.1 98.1 Pulse 73 Resp 18 18 16 B/P (MAP) 120/56 (77) Pulse Ox 98 O2 Delivery Room Air Room Air Room Air Room Air 02/09/18 02/09/18 02/09/18 02/09/18 12:39 12:40 12:43 12:58 Pulse 83 83 83 Resp 18 B/P (MAP) 137/49 137/49 137/49 O2 Delivery Room Air Intake and Output 02/08/18 02/08/18 02/09/18 15:00 23:00 07:00 Intake Total 400 ml 200 ml Output Total 0 ml Balance 400 ml 200 ml QUIN BARRY MD Feb 09, 2018 13:24
[2018-02-09 15:30] VITALS: BP 119/47
[2018-02-09] MEDS ORDERED: VANCOMYCIN 500 MG in IV NORMAL SALINE 100ML 100 ML IV SCH (16:00)
--- NOTE | 2018-02-09 16:04 | RAD ---
EXAM: Abdomen sonogram complete. HISTORY: Nausea and vomiting. TECHNIQUE: Sonographic imaging of the abdomen was performed. COMPARISON: CT dated 12/02/2017. FINDINGS: The liver is mildly enlarged. No focal hepatic lesion is seen. The gallbladder is distended, measuring 12.7 cm in maximum dimension. There is gallbladder sludge. There is no gallbladder wall thickening or pericholecystic fluid. The common bile duct is minimally dilated for patient age, measuring 6.1 mm. The right kidney is unremarkable. There is a 1.4 cm lobulation along the lateral left renal cortex. The pancreas, aorta and inferior vena cava are partially obscured due to bowel gas. The spleen is unremarkable. IMPRESSION: 1. Distended hydropic gallbladder containing sludge. 2. Hepatomegaly. 3. Slightly dilated common bile duct for patient age. No obstructing lesion is seen sonographically. 4. 1.4 cm lobular lesion along the left renal cortex, stable compared to the prior CT. The differential includes a complex cyst as well as solid neoplasm. This can be better assessed with a renal protocol CT or MRI. Electronically signed by: Chichi Craft MD (02/09/2018 4:01 PM) [id number]
[2018-02-09] MEDS: LUBIPROSTONE 8 MCG CAPSULE PO SCH (17:34)
--- NOTE | 2018-02-09 18:49 | PDOC ---
PROGRESS NOTES Assessment Assessment Bilateral vision decrease x 2 weeks, worse x 4 days before admission. Diabetic retinal disease. Renal failure. DM x 30 years. CAD, s/p CABG. Anemia. Left BKA. Wounds. Right fem-pop bypass. RECOMMENDATIONS/PLAN: Continue ASA daily. Continue Lipitor HS. Control hyperglycemia. Treat medical diseases. See Ophthalmology. Past Medical History Cardiovascular: AFib, CAD, CHF, HTN, LA, Hyperlipidemia, Other (heart murmur, peripheral vascular disease, deep venous thrombosis) Pulmonary: Asthma, Bronchitis, COPD, Pneumonia, Other (sleep apnea) CENTRAL NERVOUS SYSTEM: Peripheral neuropathy GI: Irritable bowel disease, Peptic Ulcer disease, Other (C. difficile) Psych: Anxiety, Depression Musculoskeletal: low back pain (and neck pain), Osteoarthritis Rheumatologic: Fibromyalgia Renal/: Chronic renal failure (dialysis) Endocrine: Diabetes Dermatology: Other (various wounds, MRSA, VRE) Past Surgical History CABG, Cataract Removal, Hysterectomy, Other (Arnold-Chiari malformation repair, left below the knee application, right femoropopliteal bypass, arteriovenous shunt, coronary stent, right second and third toes amputations, arthroscopic knee surgery) Family History Cancer, CAD, DM Social History , quit smoking, rare alcohol, disabled, gets around in a wheelchair ALLERGY: Reviewed. MEDICATIONS: Refer to MAR REVIEW OF SYSTEMS: Constitutional: No malnutrition, weight loss, cachexia. Head: No traumatic brain or head injury. Skin: No edema, or rash. Ear: No infection. Eyes: Vision loss. Nose: No bleeding or purulent discharges. Hearing: No hearing decrease. Neck: No injury. Breast: No history of cancer, masses, or discharges. Cardiac: CAD, s/p CABG, HLD Pulmonary: No COPD.. GI: No GI Ulcer, GI bleeding. Urinary/genital: Renal failure. Endocrine: Diabetes Mellitus. Skeletomuscular: No muscular atrophy, deformity. Neurological: see HP. Psychiatric: Denies drug use/abuse. Otherwise, not [id number] review of systems. PHYSICAL EXAMINATION: General appearance in no acute distress. HEENT: Normocephalic and nontraumatic. Eyes, nose, ears, and throat are unremarkable. Neck is supple. No lymphadenopathy. No Crepitus. Cardiovascular: S1, S2, regular rate and rhythm. Pulmonary: Clear to auscultation bilaterally. Abdomen: Bowel sounds are positive. Abdomen is soft, nontender, and nondistended. Extremities: No rash, lesions. No restriction of range of motion NEUROLOGICAL EXAMINATION: Awake. Oriented to time, place and person. PERRL. EOMI. Can see items within 2 feet. CN: no focal findings. Muscle tone: within normal. Muscle strength: 4 DTR: 2- Plantar reflex: Neutral response on right side. Left BKA. Gait: Unable to walk. Sensory exam: no abnormal findings. No acute cerebellar signs elicited. F-T-N test fine. Objective Objective Vital Signs Date Time Temp Pulse Resp B/P (MAP) Pulse Ox O2 Delivery O2 Flow Rate FiO2 02/09/18 17:34 76 119/47 02/09/18 16:58 18 Room Air 02/09/18 15:30 99.3 95 99.3 02/08/18 15:00 2.0 Intake and Output 02/09/18 07:00 Intake Total 600 ml Output Total 0 ml Balance 600 ml Intake Oral 600 ml Output Urine Total 0 ml Vitals Signs Vitals VS - Last 72 Hours, by Label Date Time Temp Pulse Resp B/P (MAP) Pulse Ox O2 Delivery O2 Flow Rate FiO2 02/09/18 17:34 76 119/47 02/09/18 16:58 18 Room Air 02/09/18 15:30 99.3 76 18 119/47 (71) 95 Room Air 99.3 02/09/18 12:58 18 Room Air 02/09/18 12:43 83 137/49 02/09/18 12:40 83 137/49 02/09/18 12:39 83 137/49 02/09/18 12:00 16 Room Air 02/09/18 08:22 18 Room Air 02/09/18 08:00 Room Air 02/09/18 07:00 98.1 73 18 120/56 (77) 98 Room Air 98.1 02/09/18 03:54 97.9 72 16 126/52 (76) 99 Room Air 97.9 02/09/18 03:37 Room Air 02/09/18 02:37 Room Air 02/09/18 02:34 Room Air 02/08/18 23:17 97.5 71 16 124/50 (74) 99 Room Air 97.5 02/08/18 20:41 Room Air 02/08/18 20:39 Room Air 02/08/18 20:00 Room Air 02/08/18 19:42 97.7 69 16 135/52 (79) 99 Room Air 97.7 02/08/18 17:00 59 113/38 02/08/18 15:00 98.3 69 16 113/46 (68) 100 Nasal Cannula 2.0 98.3 02/08/18 12:27 19 Room Air 02/08/18 11:00 98.1 70 17 158/27 (70) 100 Nasal Cannula 2.0 98.1 02/08/18 09:00 Room Air 02/08/18 08:57 72 119/48 02/08/18 08:57 72 119/48 02/08/18 08:56 19 Room Air 02/08/18 08:54 72 119/48 02/08/18 08:00 Room Air 02/08/18 07:00 97.7 72 18 119/48 (71) 99 Nasal Cannula 2.0 97.7 Laboratory Laboratory Laboratory Tests Test 02/08/18 20:23 02/09/18 05:15 02/09/18 07:37 02/09/18 16:42 Glucose (Fingerstick) 111 mg/dL (70-99) 99 mg/dL (70-99) 107 mg/dL (70-99) White Blood Count 19.0 x10^3/uL (4.0-11.0) Red Blood Count 2.48 x10^6/uL (3.50-5.40) Hemoglobin 7.8 g/dL (12.0-15.5) Hematocrit 23.8 % (36.0-47.0) Mean Corpuscular Volume 96 fL (79-100) Mean Corpuscular Hemoglobin 32 pg (25-35) Mean Corpuscular Hemoglobin Concent 33 g/dL (31-37) Red Cell Distribution Width 17.0 % (11.5-14.5) Platelet Count 386 x10^3/uL (140-400) Neutrophils (%) (Auto) 88 % (31-73) Lymphocytes (%) (Auto) 4 % (24-48) Monocytes (%) (Auto) 7 % (0-9) Eosinophils (%) (Auto) 0 % (0-3) Basophils (%) (Auto) 1 % (0-3) Neutrophils # (Auto) 16.6 x10^3uL (1.8-7.7) Lymphocytes # (Auto) 0.8 x10^3/uL (1.0-4.8) Monocytes # (Auto) 1.2 x10^3/uL (0.0-1.1) Eosinophils # (Auto) 0.1 x10^3/uL (0.0-0.7) Basophils # (Auto) 0.2 x10^3/uL (0.0-0.2) Sodium Level 143 mmol/L (136-145) Potassium Level 4.4 mmol/L (3.5-5.1) Chloride Level 104 mmol/L (98-107) Carbon Dioxide Level 26 mmol/L (21-32) Anion Gap 13 (6-14) Blood Urea Nitrogen 30 mg/dL (7-20) Creatinine 5.2 mg/dL (0.6-1.0) Estimated GFR (Cockcroft-Gault) 8.7 BUN/Creatinine Ratio 6 (6-20) Glucose Level 117 mg/dL (70-99) Calcium Level 8.3 mg/dL (8.5-10.1) Total Bilirubin 0.5 mg/dL (0.2-1.0) Aspartate Amino Transf (AST/SGOT) 12 U/L (15-37) Alanine Aminotransferase (ALT/SGPT) 13 U/L (14-59) Alkaline Phosphatase 94 U/L (46-116) Total Protein 5.2 g/dL (6.4-8.2) Albumin 2.0 g/dL (3.4-5.0) Albumin/Globulin Ratio 0.6 (1.0-1.7) Lipase 198 U/L (73-393) Microbiology 02/06/18 Blood Culture - Preliminary, Resulted NO GROWTH AFTER 3 DAYS 01/27/18 Anaerobic/Aerobic Culture - Final, Complete 01/27/18 Anaerobic Culture Result 1 (ROSALIND) - Final, Complete 01/27/18 Aerobic Culture - Final, Complete 01/27/18 Aerobic Culture Result 1 (ROSALIND) - Final, Complete 01/27/18 Antimicrobic Susceptibility - Final, Complete 01/27/18 Gram Stain - Final, Complete 01/27/18 Gram Stain Result 1 (ROSALIND) - Final, Complete 01/27/18 Gram Stain Result 2 (ROSALIND) - Final, Complete Medication Medications Current Medications Diphenhydramine HCl (Benadryl) 50 mg 1X ONCE IVP Last administered on at 09:06; Start 02/09/18 at 08:30; Stop 02/09/18 at 08:31; Status DC Famotidine (Pepcid) 20 mg QHS PO Last administered on 02/08/18at 20:39; Start 02/08/18 at 21:00 Gentamicin Sulfate 140 mg/ Dextrose 103.5 ml @ 207 mls/hr 1X ONCE IV Last administered on 02/09/18at 12:26; Start 02/09/18 at 12:00; Stop 02/09/18 at 12 :29; Status DC Gentamicin Sulfate 1 each 1X ONCE MC ; Start 02/11/18 at 06:00; Stop at 06:01 Gentamicin Sulfate 1 each PRN DAILY PRN MC SEE COMMENTS Last administered on at 14:56; Start 02/09/18 at 09:30 Info (PHARMACY MONITORING -- do not chart) 1 each PRN DAILY PRN MC SEE COMMENTS ; Start 02/09/18 at 08:30 Info (PHARMACY MONITORING -- do not chart) 1 each PRN DAILY PRN MC SEE COMMENTS ; Start 02/09/18 at 08:30; Status UNV Lidocaine HCl (Xylocaine-Mpf 2% Vial) 2 ml STK-MED ONCE .ROUTE ; Start at 08:40; Stop 02/09/18 at 08:41; Status DC Linezolid/Dextrose 300 ml @ 300 mls/hr Q12HR IV Last administered on at 12:26; Start 02/09/18 at 10:00 Lubiprostone (Amitiza) 8 mcg BIDWMEALS PO Last administered on 02/09/18at 17:34 ; Start 02/09/18 at 17:00 Metronidazole 100 ml @ 100 mls/hr Q8HRS IV Last administered on 02/09/18at 14: 51; Start 02/09/18 at 14:00 Sodium Chloride 1,000 ml @ 400 mls/hr Q2H30M PRN IV PATENCY; Start 02/09/18 at 08:21; Stop 02/09/18 at 20:20 Sodium Chloride 1,000 ml @ 1,000 mls/hr Q1H PRN IV hypotension; Start at 08:21; Stop 02/09/18 at 14:20; Status DC Vancomycin HCl 500 mg/Sodium Chloride 100 ml @ 100 mls/hr QTUTHSA IV ; Start 02/09/18 at 16:00; Stop 02/09/18 at 16:00; Status DC Comment Review of Relevant I have reviewed the following items bert (where applicable) has been applied. KRAIG HUNT MD Feb 09, 2018 18:49
[2018-02-09 19:00] VITALS: BP 139/43
[2018-02-09] MEDS: ATORVASTATIN CALCIUM 40 MG TABLET. PO SCH (19:31)
[2018-02-09] MEDS: NIACIN ER 500 MG TABLET.ER PO SCH (19:31)
[2018-02-09] MEDS: FENOFIBRATE,MICRONIZED 134 MG CAPSULE PO SCH (19:31)
[2018-02-09] MEDS: FAMOTIDINE 20 MG TABLET. PO SCH (19:32)
[2018-02-09] MEDS: PATCH REMOVAL. MC SCH (19:42)
[2018-02-09] MEDS: PROCHLORPERAZINE 10 MG/2 ML VIAL. IV PRN (20:02)
[2018-02-09] MEDS: INSULIN GLARGINE 300 UNITS/3 ML INSULN.PEN. SQ SCH (21:00)
[2018-02-09 23:00] VITALS: BP 142/50
[2018-02-10 03:22] VITALS: BP 124/50
[2018-02-10] MEDS: HYDROmorphone 2 MG/ML VIAL IV PRN ×3 (04:58→14:33)
[2018-02-10 05:21] LABS: BASO # 0.1 x10^3/uL (0.0-0.2); BASO % 1 % (0-3); EOS # 0.1 x10^3/uL (0.0-0.7); EOS % 1 % (0-3); HEMATOCRIT 23.2 % (36.0-47.0); HEMOGLOBIN 7.7 g/dL (12.0-15.5); LYMPH # 0.7 x10^3/uL (1.0-4.8); LYMPH % 5 % (24-48); MEAN CORPUSCULAR HEMOGLOBIN 32 pg (25-35); MEAN CORPUSCULAR HGB CONC 33 g/dL (31-37); MEAN CORPUSCULAR VOLUME 95 fL (79-100); MONO # 1.4 x10^3/uL (0.0-1.1); MONO % 10 % (0-9); NEUT # 12.2 x10^3uL (1.8-7.7); NEUT % 84 % (31-73); PLATELET COUNT 368 x10^3/uL (140-400); RED BLOOD COUNT 2.45 x10^6/uL (3.50-5.40); RED CELL DISTRIBUTION WIDTH 17.6 % (11.5-14.5); WHITE BLOOD COUNT 14.6 x10^3/uL (4.0-11.0)
[2018-02-10 05:30] LABS: ALBUMIN 1.9 g/dL (3.4-5.0); ALBUMIN/GLOBULIN RATIO 0.6 (1.0-1.7); CALCIUM 8.3 mg/dL (8.5-10.1); CREATININE 3.8 mg/dL (0.6-1.0); GFR 12.5; POTASSIUM 3.8 mmol/L (3.5-5.1); TOTAL BILIRUBIN 0.5 mg/dL (0.2-1.0)
--- NOTE | 2018-02-10 06:41 | PDOC ---
Infectious Disease Note Subjective Subjective No fever last 24 hours c/o N/V now 48 hours but some better + BM Right groin pain-stable No Rash/SOA/diarrhea Vital Sign Vital Signs Vital Signs Date Time Temp Pulse Resp B/P (MAP) Pulse Ox O2 Delivery O2 Flow Rate FiO2 02/10/18 05:28 Room Air 02/10/18 03:22 98.4 69 18 124/50 (74) 99 98.4 02/09/18 23:00 2.0 Physical Exam PHYSICAL EXAM GENERAL: Propped up in bed, looks better OC/Op- dry LUNGS: Clear. HEART: S1, S2 regular. ABDOMEN: Soft, NT, ND EXTREMITIES: Left BKA. RLE less swollen and red; + wrinkles. Incision well-approx w/ alberto. Wound very clean and granulating. Heel without wound NEUROLOGIC: More Alert and more responsive SKIN: without rash Tunnelled RIJ (01/29) clean Left chest line is clean Labs Lab Laboratory Tests Test 02/09/18 07:37 02/09/18 16:42 02/09/18 21:17 02/10/18 05:00 Glucose (Fingerstick) 99 mg/dL (70-99) 107 mg/dL (70-99) 146 mg/dL (70-99) White Blood Count 14.6 x10^3/uL (4.0-11.0) Red Blood Count 2.45 x10^6/uL (3.50-5.40) Hemoglobin 7.7 g/dL (12.0-15.5) Hematocrit 23.2 % (36.0-47.0) Mean Corpuscular Volume 95 fL (79-100) Mean Corpuscular Hemoglobin 32 pg (25-35) Mean Corpuscular Hemoglobin Concent 33 g/dL (31-37) Red Cell Distribution Width 17.6 % (11.5-14.5) Platelet Count 368 x10^3/uL (140-400) Neutrophils (%) (Auto) 84 % (31-73) Lymphocytes (%) (Auto) 5 % (24-48) Monocytes (%) (Auto) 10 % (0-9) Eosinophils (%) (Auto) 1 % (0-3) Basophils (%) (Auto) 1 % (0-3) Neutrophils # (Auto) 12.2 x10^3uL (1.8-7.7) Lymphocytes # (Auto) 0.7 x10^3/uL (1.0-4.8) Monocytes # (Auto) 1.4 x10^3/uL (0.0-1.1) Eosinophils # (Auto) 0.1 x10^3/uL (0.0-0.7) Basophils # (Auto) 0.1 x10^3/uL (0.0-0.2) Sodium Level 140 mmol/L (136-145) Potassium Level 3.8 mmol/L (3.5-5.1) Chloride Level 101 mmol/L (98-107) Carbon Dioxide Level 30 mmol/L (21-32) Anion Gap 9 (6-14) Blood Urea Nitrogen 17 mg/dL (7-20) Creatinine 3.8 mg/dL (0.6-1.0) Estimated GFR (Cockcroft-Gault) 12.5 BUN/Creatinine Ratio 4 (6-20) Glucose Level 117 mg/dL (70-99) Calcium Level 8.3 mg/dL (8.5-10.1) Total Bilirubin 0.5 mg/dL (0.2-1.0) Aspartate Amino Transf (AST/SGOT) 14 U/L (15-37) Alanine Aminotransferase (ALT/SGPT) 14 U/L (14-59) Alkaline Phosphatase 86 U/L (46-116) Total Protein 5.0 g/dL (6.4-8.2) Albumin 1.9 g/dL (3.4-5.0) Albumin/Globulin Ratio 0.6 (1.0-1.7) Micro U/S IMPRESSION: 02/09 1. Distended hydropic gallbladder containing sludge. 2. Hepatomegaly. 3. Slightly dilated common bile duct for patient age. No obstructing lesion is seen sonographically. 4. 1.4 cm lobular lesion along the left renal cortex, stable compared to the prior CT. The differential includes a complex cyst as well as solid neoplasm. This can be better assessed with a renal protocol CT or MRI. Klebsiella pneumoniae 4+ ANTIMICROBIAL SUSCEPTIBILITY Final Comment S = Susceptible; I = Intermediate; R = Resistant P = Positive; N = Negative MICS are expressed in micrograms per mL Antibiotic RSLT#1 RSLT#2 RSLT#3 RSLT#4 Amoxicillin/Clavulanic Acid S<=2 Ampicillin R>=32 Cefepime S<=0.12 Ceftriaxone S<=0.25 Cefuroxime S =4 Ciprofloxacin S =1 Ertapenem S<=0.12 Gentamicin S<=1 Imipenem S<=0.25 Levofloxacin S =1 Meropenem S<=0.25 Piperacillin/Tazobactam S<=4 Tetracycline S<=1 CONTINUED ON NEXT PAGE RUN DATE: 01/30/18 PAGE 2 RUN TIME: 9123 [facility] [address] [place] [address] Edward Kent M.D., Delivery Driver/Supervisor SPEC: [id number] PATIENT: JAMAL BOSE [id number] ( Continued) Procedure Result ANTIMICROBIAL SUSCEPTIBILITY Final (continued) Tobramycin S<=1 Trimethoprim/Sulfa S<=20 01/26/18 Blood Culture - Preliminary, Resulted NO GROWTH AFTER 3 DAYS 01/27 ANAEROBIC RES 1 Preliminary No anaerobes recovered in 24 hours. AEROBIC RES 1 Preliminary Gram negative rods 01/26 AEROBIC RES 1 Preliminary Mixed site chinedu. GRAM STAIN RES 2 Final Many gram negative rods. GRAM STAIN RES 3 Final Gram positive cocci in pairs Objective Assessment Fever - better - blood cult 02/06 neg Leukocytosis ? reactive from GI bleed,- despite Vanc/Cefepime better with Zyvox/ gent/Flagyl Mild encephalopathy - ? med related Right leg surgery site infection s/p excisional debridement; muscle flap & wound VAC placement on 01/27. Klebsiella (R amp) - s/p repeat I and D on 02/01 - 01/26. gram stain: GPC and GNR -- mixed chinedu. PAD s/p leg bypass on 01/06 ESRD Multiple antibiotic allergies Amiodarone therapy h/o VRE, MRSA, c. diff Nausea and vomiting s/p EGD 02/05. non-erosive gastritis. some better but ? Abnormal Abd U/S - lipase normal Anemia s/p PRBC Plan Plan of Care May need HIDA scan but await GI f/u D/c'd vanc and cefepime restarted 02/05 02/09 Began Zyvox with h/o VRE/add Gent/restart Flagyl 02/09 -Previously on Rocephin and Flagyl -s/p gent x 1 on 01/27 Optho eval - will need to be outpatient Probiotics BC from 02/05 NGTD Local wound care [facility] soon but not today D/w ALBERTO CARPENTER MD Feb 10, 2018 06:40
[2018-02-10 07:00] VITALS: BP 105/43
[2018-02-10] MEDS: INSULIN LISPRO 300 UNITS/3 ML INSULN.PEN. SQ SCH ×3 (08:00→17:00)
[2018-02-10] MEDS: CARVEDILOL 12.5 MG TABLET. PO SCH ×2 (08:00→17:23)
[2018-02-10] MEDS: MORPHINE ER 15 MG TABLET.ER PO SCH ×2 (08:56→20:15)
[2018-02-10] MEDS: POLYETHYLENE GLYCOL 3350 17 GM PACKET. PO SCH (08:56)
[2018-02-10] MEDS: ERYTHROMYCIN BASE 250 MG TABLET PO SCH ×2 (08:56→20:15)
[2018-02-10] MEDS: CALCITRIOL 0.25 MCG CAPSULE. PO SCH (08:57)
[2018-02-10] MEDS: TICAGRELOR 90 MG TABLET. PO SCH ×2 (08:57→20:14)
[2018-02-10] MEDS: FUROSEMIDE 80 MG TABLET. PO SCH ×2 (08:57→14:38)
[2018-02-10] MEDS: carBAMazepine 200 MG TABLET PO SCH ×2 (08:57→20:15)
[2018-02-10] MEDS: LUBIPROSTONE 8 MCG CAPSULE PO SCH ×2 (08:57→17:23)
[2018-02-10] MEDS: ASPIRIN ENTERIC COATED 81 MG TABLET.DR. PO SCH (08:57)
[2018-02-10] MEDS: FOLIC/VIT B COMP W-C (RENAL) TABLET. PO SCH (08:57)
[2018-02-10] MEDS: LACTOBACILLUS RHAMNOSUS GG 1 CAPSULE. PO SCH ×2 (08:59→20:15)
[2018-02-10] MEDS: AMIODARONE HCL 200 MG TABLET. PO SCH (09:00)
[2018-02-10] MEDS: PROCHLORPERAZINE 10 MG/2 ML VIAL. IV PRN ×3 (09:55→23:06)
--- NOTE | 2018-02-10 10:27 | PDOC ---
PROGRESS NOTES Subjective Subjective Pt resting comfortably in bed. No complaints, reports pain well controlled. White count improved today. Objective Objective Vital Signs Date Time Temp Pulse Resp B/P (MAP) Pulse Ox O2 Delivery O2 Flow Rate FiO2 02/10/18 10:06 Room Air 02/10/18 09:00 62 105/43 02/10/18 07:00 98.0 18 99 98.0 02/09/18 23:00 2.0 Intake and Output 02/10/18 07:00 Intake Total 150 ml Output Total 450 ml Balance -300 ml Intake Oral 150 ml Output Urine Total 450 ml Physical Exam Physical Exam Wound vac removed to right groin with health technical writer Yanira, director [employer] [place] and Dr. Mcelroy present. Wound with good granulation tissue scattered throughout. Light layer of sloughed tissue covering wound in some areas. Superior lateral border and superior corner of wound with areas of beginning stages necrotic tissue. Muscle flap sutures intact. No odor to wound. No surrounding erythema. Leg incision clean, dry and intact. Diagnosis DIAGNOSIS S/P right groin infection with debridement and muscle flap on 01/27/18 S/P debridement 02/01/17 Assessment Assessment Problems Medical Problems: (1) Chronic renal failure Status: Acute Plan Plan of Care S/P right groin infection, debridement and muscle flap 01/27/18 S/P right groin debridement 02/01/18 - pt doing well. White count elevated yesterday, improved today. Per report pt will be going for US today to assess gallbladder. - Wound is granulating with some necrotic tissue to superio-lateral border. Discussed with patient potential need for another debridement, she understood and agreed if necessary. I will discuss with Dr. Reina or collaborative physician about the need for another debridement. Future dispo plans to be determined then. I do not see signs of overt infection in or surrounding the wound. Apply veraflow wound vac today, continue wound care and supportive care. Comment Review of Relevant I have reviewed the following items bert (where applicable) has been applied. Labs Laboratory Tests Test 02/08/18 10:39 02/08/18 16:53 02/08/18 20:23 02/09/18 05:15 Glucose (Fingerstick) 107 mg/dL (70-99) 125 mg/dL (70-99) 111 mg/dL (70-99) White Blood Count 19.0 x10^3/uL (4.0-11.0) Red Blood Count 2.48 x10^6/uL (3.50-5.40) Hemoglobin 7.8 g/dL (12.0-15.5) Hematocrit 23.8 % (36.0-47.0) Mean Corpuscular Volume 96 fL (79-100) Mean Corpuscular Hemoglobin 32 pg (25-35) Mean Corpuscular Hemoglobin Concent 33 g/dL (31-37) Red Cell Distribution Width 17.0 % (11.5-14.5) Platelet Count 386 x10^3/uL (140-400) Neutrophils (%) (Auto) 88 % (31-73) Lymphocytes (%) (Auto) 4 % (24-48) Monocytes (%) (Auto) 7 % (0-9) Eosinophils (%) (Auto) 0 % (0-3) Basophils (%) (Auto) 1 % (0-3) Neutrophils # (Auto) 16.6 x10^3uL (1.8-7.7) Lymphocytes # (Auto) 0.8 x10^3/uL (1.0-4.8) Monocytes # (Auto) 1.2 x10^3/uL (0.0-1.1) Eosinophils # (Auto) 0.1 x10^3/uL (0.0-0.7) Basophils # (Auto) 0.2 x10^3/uL (0.0-0.2) Sodium Level 143 mmol/L (136-145) Potassium Level 4.4 mmol/L (3.5-5.1) Chloride Level 104 mmol/L (98-107) Carbon Dioxide Level 26 mmol/L (21-32) Anion Gap 13 (6-14) Blood Urea Nitrogen 30 mg/dL (7-20) Creatinine 5.2 mg/dL (0.6-1.0) Estimated GFR (Cockcroft-Gault) 8.7 BUN/Creatinine Ratio 6 (6-20) Glucose Level 117 mg/dL (70-99) Calcium Level 8.3 mg/dL (8.5-10.1) Total Bilirubin 0.5 mg/dL (0.2-1.0) Aspartate Amino Transf (AST/SGOT) 12 U/L (15-37) Alanine Aminotransferase (ALT/SGPT) 13 U/L (14-59) Alkaline Phosphatase 94 U/L (46-116) Total Protein 5.2 g/dL (6.4-8.2) Albumin 2.0 g/dL (3.4-5.0) Albumin/Globulin Ratio 0.6 (1.0-1.7) Lipase 198 U/L (73-393) Test 02/09/18 07:37 02/09/18 16:42 02/09/18 21:17 02/10/18 05:00 Glucose (Fingerstick) 99 mg/dL (70-99) 107 mg/dL (70-99) 146 mg/dL (70-99) White Blood Count 14.6 x10^3/uL (4.0-11.0) Red Blood Count 2.45 x10^6/uL (3.50-5.40) Hemoglobin 7.7 g/dL (12.0-15.5) Hematocrit 23.2 % (36.0-47.0) Mean Corpuscular Volume 95 fL (79-100) Mean Corpuscular Hemoglobin 32 pg (25-35) Mean Corpuscular Hemoglobin Concent 33 g/dL (31-37) Red Cell Distribution Width 17.6 % (11.5-14.5) Platelet Count 368 x10^3/uL (140-400) Neutrophils (%) (Auto) 84 % (31-73) Lymphocytes (%) (Auto) 5 % (24-48) Monocytes (%) (Auto) 10 % (0-9) Eosinophils (%) (Auto) 1 % (0-3) Basophils (%) (Auto) 1 % (0-3) Neutrophils # (Auto) 12.2 x10^3uL (1.8-7.7) Lymphocytes # (Auto) 0.7 x10^3/uL (1.0-4.8) Monocytes # (Auto) 1.4 x10^3/uL (0.0-1.1) Eosinophils # (Auto) 0.1 x10^3/uL (0.0-0.7) Basophils # (Auto) 0.1 x10^3/uL (0.0-0.2) Sodium Level 140 mmol/L (136-145) Potassium Level 3.8 mmol/L (3.5-5.1) Chloride Level 101 mmol/L (98-107) Carbon Dioxide Level 30 mmol/L (21-32) Anion Gap 9 (6-14) Blood Urea Nitrogen 17 mg/dL (7-20) Creatinine 3.8 mg/dL (0.6-1.0) Estimated GFR (Cockcroft-Gault) 12.5 BUN/Creatinine Ratio 4 (6-20) Glucose Level 117 mg/dL (70-99) Calcium Level 8.3 mg/dL (8.5-10.1) Total Bilirubin 0.5 mg/dL (0.2-1.0) Aspartate Amino Transf (AST/SGOT) 14 U/L (15-37) Alanine Aminotransferase (ALT/SGPT) 14 U/L (14-59) Alkaline Phosphatase 86 U/L (46-116) Total Protein 5.0 g/dL (6.4-8.2) Albumin 1.9 g/dL (3.4-5.0) Albumin/Globulin Ratio 0.6 (1.0-1.7) Test 02/10/18 07:11 Glucose (Fingerstick) 116 mg/dL (70-99) Laboratory Tests Test 02/09/18 16:42 02/09/18 21:17 02/10/18 05:00 02/10/18 07:11 Glucose (Fingerstick) 107 mg/dL (70-99) 146 mg/dL (70-99) 116 mg/dL (70-99) White Blood Count 14.6 x10^3/uL (4.0-11.0) Red Blood Count 2.45 x10^6/uL (3.50-5.40) Hemoglobin 7.7 g/dL (12.0-15.5) Hematocrit 23.2 % (36.0-47.0) Mean Corpuscular Volume 95 fL (79-100) Mean Corpuscular Hemoglobin 32 pg (25-35) Mean Corpuscular Hemoglobin Concent 33 g/dL (31-37) Red Cell Distribution Width 17.6 % (11.5-14.5) Platelet Count 368 x10^3/uL (140-400) Neutrophils (%) (Auto) 84 % (31-73) Lymphocytes (%) (Auto) 5 % (24-48) Monocytes (%) (Auto) 10 % (0-9) Eosinophils (%) (Auto) 1 % (0-3) Basophils (%) (Auto) 1 % (0-3) Neutrophils # (Auto) 12.2 x10^3uL (1.8-7.7) Lymphocytes # (Auto) 0.7 x10^3/uL (1.0-4.8) Monocytes # (Auto) 1.4 x10^3/uL (0.0-1.1) Eosinophils # (Auto) 0.1 x10^3/uL (0.0-0.7) Basophils # (Auto) 0.1 x10^3/uL (0.0-0.2) Sodium Level 140 mmol/L (136-145) Potassium Level 3.8 mmol/L (3.5-5.1) Chloride Level 101 mmol/L (98-107) Carbon Dioxide Level 30 mmol/L (21-32) Anion Gap 9 (6-14) Blood Urea Nitrogen 17 mg/dL (7-20) Creatinine 3.8 mg/dL (0.6-1.0) Estimated GFR (Cockcroft-Gault) 12.5 BUN/Creatinine Ratio 4 (6-20) Glucose Level 117 mg/dL (70-99) Calcium Level 8.3 mg/dL (8.5-10.1) Total Bilirubin 0.5 mg/dL (0.2-1.0) Aspartate Amino Transf (AST/SGOT) 14 U/L (15-37) Alanine Aminotransferase (ALT/SGPT) 14 U/L (14-59) Alkaline Phosphatase 86 U/L (46-116) Total Protein 5.0 g/dL (6.4-8.2) Albumin 1.9 g/dL (3.4-5.0) Albumin/Globulin Ratio 0.6 (1.0-1.7) Microbiology 02/06/18 Blood Culture - Preliminary, Resulted NO GROWTH AFTER 4 DAYS 01/27/18 Anaerobic/Aerobic Culture - Final, Complete 01/27/18 Anaerobic Culture Result 1 (ROSALIND) - Final, Complete 01/27/18 Aerobic Culture - Final, Complete 01/27/18 Aerobic Culture Result 1 (ROSALIND) - Final, Complete 01/27/18 Antimicrobic Susceptibility - Final, Complete 01/27/18 Gram Stain - Final, Complete 01/27/18 Gram Stain Result 1 (ROSALIND) - Final, Complete 01/27/18 Gram Stain Result 2 (ROSALIND) - Final, Complete Medications Current Medications Hydromorphone HCl (Dilaudid) 2 mg 1X ONCE IV Last administered on 01/26/18at 22 :39; Start 01/26/18 at 22:00; Stop 01/26/18 at 22:01; Status DC Vancomycin HCl (Vanco Per Pharmacy) 1 each PRN DAILY PRN MC SEE COMMENTS Last administered on 01/31/18at 17:20; Start 01/26/18 at 22:45; Stop 02/01/18 at 11:41 ; Status DC Vancomycin HCl 1.75 gm/Sodium Chloride 500 ml @ 250 mls/hr 1X ONCE IV Last administered on 01/26/18at 23:53; Start 01/26/18 at 23:00; Stop 01/27/18 at 00:59 ; Status DC Ondansetron HCl (Zofran) 4 mg PRN Q8HRS PRN IV NAUSEA/VOMITING 1ST CHOICE; Start 01/26/18 at 23:15; Stop 01/27/18 at 23:14; Status DC Sodium Chloride 1,000 ml @ 75 mls/hr [id number] IV Last administered on at 00:39; Start 01/26/18 at 23:30; Stop 01/27/18 at 23:29; Status DC Pharmacy Consult (C.diff Med Screen By Rx) 1 each 1X ONCE MC ; Start 01/27/18 at 01:00; Stop 01/27/18 at 01:01; Status Cancel Influenza Virus Vaccine (Afluria Trivalent [id number] Syringe) 0.5 ml ONCE ONCE VAX IM Last administered on 01/27/18at 09:00; Start 01/27/18 at 09:00; Stop 01/27/18 at 09:01; Status DC Vancomycin HCl (Vancomycin Random Level) 1 each 1X ONCE MC Last administered on 01/28/18at 05:00; Start 01/28/18 at 05:00; Stop 01/28/18 at 05:01; Status DC Hydromorphone HCl (Dilaudid) 1 mg PRN Q3HRS PRN IV SEVERE PAIN Last administered on 02/10/18at 10:06; Start 01/27/18 at 03:30 Ondansetron HCl (Zofran) 4 mg PRN Q6HRS PRN IV NAUSEA/VOMITING; Start 01/27/18 at 10:45; Stop 01/27/18 at 18:00; Status DC Fentanyl Citrate (Fentanyl 2ml Vial) 25 mcg PRN Q5MIN PRN IV MILD PAIN; Start 01/27/18 at 10:45; Stop 01/27/18 at 18:00; Status DC Fentanyl Citrate (Fentanyl 2ml Vial) 50 mcg PRN Q5MIN PRN IV MODERATE TO SEVERE PAIN; Start 01/27/18 at 10:45; Stop 01/27/18 at 18:00; Status DC Morphine Sulfate (Morphine Sulfate) 1 mg PRN Q10MIN PRN IV SEVERE PAIN Last administered on 01/27/18at 16:28; Start 01/27/18 at 10:45; Stop 01/27/18 at 18:00 ; Status DC Ringer's Solution 1,000 ml @ 30 mls/hr Q24H IV Last administered on 01/27/18at 10:35; Start 01/27/18 at 10:35; Stop 01/27/18 at 19:36; Status DC Lidocaine HCl (Xylocaine-Mpf 1% 2ml Vial) 2 ml 1X PRN PRN ID IV START; Start 01/27/18 at 10:45; Stop 01/27/18 at 18:00; Status DC Hydromorphone HCl (Dilaudid) 0.5 mg PRN Q10MIN PRN IV SEV PAIN, Second choice Last administered on 01/27/18at 15:59; Start 01/27/18 at 10:45; Stop 01/27/18 at 18:00; Status DC Prochlorperazine Edisylate (Compazine) 5 mg PACU PRN PRN IV NAUSEA, MRX1; Start 01/27/18 at 10:45; Stop 01/27/18 at 18:00; Status DC Amiodarone HCl (Cordarone) 200 mg DAILY PO Last administered on 02/10/18at 09: 00; Start 01/27/18 at 12:30 Aspirin (Anthony Aspirin) 325 mg DAILY PO Last administered on 01/28/18at 09:13; Start 01/27/18 at 12:30; Stop 01/28/18 at 14:26; Status DC Carbamazepine (TEGretol) 200 mg BID PO Last administered on 02/10/18 08:57; Start 01/27/18 at 12:30 Carvedilol (Coreg) 12.5 mg BIDWMEALS PO Last administered on 02/09/18 17:34; Start 01/27/18 at 12:30 Vitamin B Complex/ Vitamin C (Melly-Shabbir) 1 tab DAILY PO Last administered on 08:57; Start 01/27/18 at 12:30 Furosemide (Lasix) 80 mg [id number] PO Last administered on 02/10/18 08:57; Start 01/27/18 at 12:30 Insulin Glargine (Lantus) 22 units QHS SQ Last administered on 02/06/18 22:21 ; Start 01/27/18 at 21:00 Morphine Sulfate (Ms Contin) 15 mg BID PO Last administered on 02/10/18 08:56 ; Start 01/27/18 at 12:30 Nitroglycerin (Nitrostat) 0.4 mg PRN Q5MIN PRN SL CHEST PAIN; Start 01/27/18 at 12:00 Nystatin (Nystop) 1 susanna PRN BID PRN TP SKIN BREAKDOWN; Start 01/27/18 at 12:00 Tramadol HCl (Ultram) 50 mg PRN Q4HRS PRN PO HEADACHE Last administered on 04:36; Start 01/27/18 at 12:00 Non-Formulary Medication (Albuterol Sulfate (Proventil Hfa Inhaler)) 2 puff BID PRN IH FOR ASTHMA; Start 01/27/18 at 12:00; Status UNV Atorvastatin Calcium (Lipitor) 80 mg QHS PO Last administered on 02/09/18 19: 31; Start 01/27/18 at 21:00 Calcitriol (Rocaltrol) 0.25 mcg DAILY PO Last administered on 02/10/18 08:57 ; Start 01/27/18 at 12:30 Diltiazem HCl (Cardizem 24hr Cd) 120 mg DAILY PO Last administered on 12:43; Start 01/27/18 at 12:30 Erythromycin (E-Mycin) 250 mg BID PO Last administered on 02/10/18 08:56; Start 01/27/18 at 21:00 Fenofibrate (Lofibra) 134 mg QHS PO Last administered on 02/09/18at 19:31; Start 01/27/18 at 21:00 Non-Formulary Medication (Fluconazole (Diflucan)) 100 mg PRN PO ; Start at 12:00; Status UNV Lidocaine (Lidoderm) 1 patch PRN DAILY PRN TD PAIN; Start 01/27/18 at 09:00 Niacin (Slo-Niacin) 500 mg QHS PO Last administered on 02/09/18at 19:31; Start 01/27/18 at 21:00 Ondansetron HCl (Zofran Odt) 4 mg PRN Q6HRS PRN PO NAUSEA/VOMITING Last administered on 02/07/18at 16:53; Start 01/27/18 at 12:15 Miscellaneous (Lidoderm Patch Removal) 1 ea QHS MC Last administered on at 20:57; Start 01/27/18 at 21:00 Albuterol Sulfate (Ventolin Neb Soln) 2.5 mg PRN BID PRN NEB SHORTNESS OF BREATH Last administered on 01/27/18at 21:59; Start 01/27/18 at 12:30 Lidocaine HCl (Lidocaine 1% 50ml Vial) 50 ml 1X ONCE INJ Last administered on 01/27/18at 14:06; Start 01/27/18 at 12:45; Stop 01/27/18 at 12:46; Status DC Hydromorphone HCl (Dilaudid) 2 mg STK-MED ONCE .ROUTE ; Start 01/27/18 at 12:36 ; Stop 01/27/18 at 12:38; Status DC Propofol 20 ml @ As Directed STK-MED ONCE IV ; Start 01/27/18 at 12:38; Stop at 12:39; Status DC Bacitracin [id number] unit/Sodium Chloride 3,000 ml @ 0 mls/hr 1X ONCE IR ; Start 01/27/18 at 13:15; Stop 01/27/18 at 13:16; Status Cancel Dexamethasone Sodium Phosphate (Decadron) 20 mg STK-MED ONCE .ROUTE ; Start 01/27/18 at 13:11; Stop 01/27/18 at 13:12; Status DC Ondansetron HCl (Zofran) 4 mg STK-MED ONCE .ROUTE ; Start 01/27/18 at 13:11; Stop 01/27/18 at 13:12; Status DC Sevoflurane (Ultane) 30 ml STK-MED ONCE IH ; Start 01/27/18 at 13:11; Stop 01/27 at 13:12; Status DC Bacitracin (Bacitracin) 50,000 unit STK-MED ONCE IRR Last administered on at 13:58; Start 01/27/18 at 12:14; Stop 01/27/18 at 13:16; Status DC Clopidogrel Bisulfate (Plavix) 75 mg DAILYWBKFT PO Last administered on at 09:13; Start 01/28/18 at 08:00; Stop 01/28/18 at 14:28; Status DC Hydromorphone HCl (Dilaudid) 2 mg STK-MED ONCE .ROUTE ; Start 01/27/18 at 15:38 ; Stop 01/27/18 at 15:40; Status DC Gentamicin Sulfate 235 mg/ Dextrose 105.875 ml @ 105.875 mls/hr 1X ONCE IV Last administered on 01/27/18at 19:56; Start 01/27/18 at 16:00; Stop 01/27/18 at 16:59; Status DC Lactobacillus Rhamnosus (Culturelle) 1 cap BID PO Last administered on at 08:59; Start 01/27/18 at 21:00 Cefepime HCl 1 gm/ Dextrose 50 ml @ 100 mls/hr DAILY IV ; Start 01/29/18 at 09: 00; Status UNV Metronidazole 100 ml @ 100 mls/hr Q12HR IV Last administered on 02/02/18at 21: 00; Start 01/28/18 at 10:00; Stop 02/03/18 at 10:49; Status DC Cefepime HCl (Maxipime) 1 gm Q24H IVP Last administered on 02/03/18at 10:54; Start 01/28/18 at 10:00; Stop 02/04/18 at 12:02; Status DC Lidocaine HCl (Xylocaine-Mpf 2% Vial) 2 ml STK-MED ONCE .ROUTE ; Start 01/28/18 at 11:41; Stop 01/28/18 at 11:42; Status DC Sodium Chloride 1,000 ml @ 1,000 mls/hr Q1H PRN IV hypotension; Start 01/28/18 at 12:09; Stop 01/28/18 at 18:08; Status DC Info (PHARMACY MONITORING -- do not chart) 1 each PRN DAILY PRN MC SEE COMMENTS ; Start 01/28/18 at 12:15; Status UNV Info (PHARMACY MONITORING -- do not chart) 1 each PRN DAILY PRN MC SEE COMMENTS ; Start 01/28/18 at 12:15; Stop 01/31/18 at 09:10; Status DC Lidocaine HCl (Xylocaine-Mpf 2% Vial) 2 ml 1X ONCE INJ ; Start 01/28/18 at 12: 15; Stop 01/28/18 at 12:21; Status DC Ticagrelor (Brilinta) 90 mg BID PO Last administered on 02/10/18at 08:57; Start 01/28/18 at 21:00 Diphenhydramine HCl (Benadryl) 25 mg PRN Q6HRS PRN PO ITCHING; Start 01/28/18 at 14:15 Aspirin (Ecotrin) 81 mg DAILYWBKFT PO Last administered on 02/10/18at 08:57; Start 01/29/18 at 08:00 Insulin Human Lispro (HumaLOG) 0-5 UNITS TIDWMEALS SQ Last administered on at 09:07; Start 01/28/18 at 17:00 Dextrose (Dextrose 50%-Water Syringe) 12.5 gm PRN Q15MIN PRN IV SEE COMMENTS Last administered on 02/05/18at 08:50; Start 01/28/18 at 14:45 Hydralazine HCl (Apresoline) 10 mg PRN TID PRN PO hypertension; Start 01/28/18 at 14:45 Oxycodone/ Acetaminophen (Percocet 10/325) 1 tab PRN Q4HRS PRN PO pain SEVERE Last administered on 02/09/18at 23:04; Start 01/29/18 at 07:45 Promethazine HCl (Phenergan Supp) 12.5 mg 1X ONCE AR ; Start 01/29/18 at 12:15 ; Stop 01/29/18 at 12:36; Status DC Promethazine HCl (Phenergan Im) 12.5 mg 1X ONCE IM ; Start 01/29/18 at 12:45; Stop 01/29/18 at 12:46; Status DC Lidocaine/ Epinephrine (LIDOCAINE 1%-EPI 1:100,000 Multi-Dose) 20 ml STK-MED ONCE .ROUTE ; Start 01/29/18 at 12:45; Stop 01/29/18 at 12:47; Status DC Heparin Sodium (Porcine) (Hep Lock Adult) 500 unit STK-MED ONCE IV ; Start 01/29 at 12:45; Stop 01/29/18 at 12:47; Status DC Morphine Sulfate (Morphine Sulfate) 10 mg STK-MED ONCE .ROUTE ; Start 01/29/18 at 13:23; Stop 01/29/18 at 13:25; Status DC Midazolam HCl (Versed) 2 mg STK-MED ONCE .ROUTE ; Start 01/29/18 at 13:23; Stop 01/29/18 at 13:25; Status DC Morphine Sulfate (Morphine Sulfate) 1 mg PRN Q10MIN PRN IV SEVERE PAIN Last administered on 02/01/18at 15:46; Start 02/01/18 at 07:00; Stop 02/02/18 at 06:59 ; Status DC Ringer's Solution 1,000 ml @ 30 mls/hr Q24H IV ; Start 02/01/18 at 07:00; Stop 02/01/18 at 18:59; Status DC Lidocaine HCl (Xylocaine-Mpf 1% 2ml Vial) 2 ml PRN 1X PRN ID PRIOR TO IV START ; Start 02/01/18 at 07:00; Stop 02/02/18 at 06:59; Status DC Hydromorphone HCl (Dilaudid) 0.5 mg PRN Q10MIN PRN IV SEV PAIN, Second choice Last administered on 02/01/18at 16:08; Start 02/01/18 at 07:00; Stop 02/02/18 at 06:59; Status DC Prochlorperazine Edisylate (Compazine) 5 mg PACU PRN PRN IV NAUSEA, MRX1; Start 02/01/18 at 07:00; Stop 02/02/18 at 06:59; Status DC Lidocaine/ Epinephrine (LIDOCAINE 1%-EPI 1:100,000 Multi-Dose) 8 ml 1X ONCE IJ Last administered on 01/29/18at 14:01; Start 01/29/18 at 14:00; Stop 01/29/18 at 14:17; Status DC Heparin Sodium (Porcine) (Hep Lock Adult) 500 unit 1X ONCE IV Last administered on 01/29/18at 14:04; Start 01/29/18 at 14:00; Stop 01/29/18 at 14:17 ; Status DC Morphine Sulfate (Morphine Sulfate) 5 mg 1X ONCE IV Last administered on at 14:01; Start 01/29/18 at 14:00; Stop 01/29/18 at 14:17; Status DC Ondansetron HCl (Zofran) 4 mg PRN Q6HRS PRN IV NAUSEA/VOMITING 1ST CHOICE Last administered on 02/09/18at 08:22; Start 01/29/18 at 14:45 Vancomycin HCl 500 mg/Sodium Chloride 100 ml @ 100 mls/hr 1X ONCE IV Last administered on 01/29/18at 21:04; Start 01/29/18 at 18:00; Stop 01/29/18 at 18:59 ; Status DC Sodium Chloride 1,000 ml @ 1,000 mls/hr Q1H PRN IV hypotension; Start 01/30/18 at 13:09; Stop 01/30/18 at 19:08; Status DC Sodium Chloride (Normal Saline Flush) 10 ml 1X PRN PRN IV AP catheter pack; Start 01/30/18 at 13:15; Stop 01/31/18 at 13:14; Status DC Sodium Chloride (Normal Saline Flush) 10 ml 1X PRN PRN IV LICENSED [employer] catheter pack; Start 01/30/18 at 13:15; Stop 01/31/18 at 13:14; Status DC Sodium Chloride 1,000 ml @ 400 mls/hr Q2H30M PRN IV PATENCY; Start 01/30/18 at 13:09; Stop 01/31/18 at 01:08; Status DC Info (PHARMACY MONITORING -- do not chart) 1 each PRN DAILY PRN MC SEE COMMENTS ; Start 01/30/18 at 13:15; Stop 01/30/18 at 13:17; Status DC Info (PHARMACY MONITORING -- do not chart) 1 each PRN DAILY PRN MC SEE COMMENTS ; Start 01/30/18 at 13:15; Stop 02/04/18 at 07:27; Status DC Lidocaine HCl (Lidocaine 1% 50ml Vial) 50 ml 1X ONCE INJ ; Start 01/30/18 at 15 :45; Stop 01/30/18 at 15:46; Status DC Vancomycin HCl 500 mg/Sodium Chloride 100 ml @ 100 mls/hr ONCE ONCE IV Last administered on 01/30/18at 20:49; Start 01/30/18 at 18:00; Stop 01/30/18 at 18:59 ; Status DC Cefazolin Sodium 1 gm/Sodium Chloride 500 ml @ 500 mls/hr 1X ONCE IRR ; Start 02/01/18 at 06:00; Stop 02/01/18 at 06:59; Status DC Lidocaine HCl (Xylocaine-Mpf 2% Vial) 2 ml STK-MED ONCE .ROUTE ; Start 01/28/18 at 12:00; Stop 02/01/18 at 08:30; Status DC Darbepoetin Mauricio (Aranesp) 60 mcg [id number] SQ Last administered on 02/08/18at 20:41; Start 02/01/18 at 21:00 Cellulose (Surgicel Fibrillar 1x2) 1 each STK-MED ONCE .ROUTE ; Start 02/01/18 at 12:05; Stop 02/01/18 at 13:06; Status DC Lidocaine HCl (Xylocaine 1% Pf 30ml Vial) 30 ml 1X ONCE INJ ; Start 02/01/18 at 13:15; Stop 02/01/18 at 13:18; Status DC Sodium Chloride 1,000 ml @ 75 mls/hr [id number] IV Last administered on at 00:15; Start 02/01/18 at 13:45; Stop 02/02/18 at 16:43; Status DC Morphine Sulfate (Morphine Sulfate) 10 mg STK-MED ONCE .ROUTE ; Start 02/01/18 at 14:24; Stop 02/01/18 at 14:25; Status DC Midazolam HCl (Versed) 2 mg STK-MED ONCE .ROUTE ; Start 02/01/18 at 14:24; Stop 02/01/18 at 14:25; Status DC Midazolam HCl (Versed) 2 mg STK-MED ONCE .ROUTE ; Start 02/01/18 at 14:25; Stop 02/01/18 at 14:26; Status DC Propofol 20 ml @ As Directed STK-MED ONCE IV ; Start 02/01/18 at 14:25; Stop at 14:26; Status DC Dexamethasone Sodium Phosphate (Decadron) 20 mg STK-MED ONCE .ROUTE ; Start 02/01/18 at 14:25; Stop 02/01/18 at 14:26; Status DC Ondansetron HCl (Zofran) 4 mg STK-MED ONCE .ROUTE ; Start 02/01/18 at 14:25; Stop 02/01/18 at 14:26; Status DC Bacitracin (Bacitracin) 50,000 unit STK-MED ONCE IRR Last administered on at 14:55; Start 02/01/18 at 13:32; Stop 02/01/18 at 14:32; Status DC Vancomycin HCl 500 mg/Sodium Chloride 100 ml @ 100 mls/hr QTUTHSA IV Last administered on 02/02/18at 16:15; Start 02/02/18 at 16:00; Stop 02/04/18 at 12: 02; Status DC Sodium Chloride 1,000 ml @ 1,000 mls/hr Q1H PRN IV hypotension; Start 02/02/18 at 09:39; Stop 02/02/18 at 15:38; Status DC Albumin Human 200 ml @ 200 mls/hr 1X PRN PRN IV Hypotension; Start 02/02/18 at 09:45; Stop 02/02/18 at 15:44; Status DC Sodium Chloride 1,000 ml @ 400 mls/hr Q2H30M PRN IV PATENCY; Start 02/02/18 at 09:39; Stop 02/02/18 at 21:38; Status DC Info (PHARMACY MONITORING -- do not chart) 1 each PRN DAILY PRN MC SEE COMMENTS ; Start 02/02/18 at 09:45; Stop 02/04/18 at 07:28; Status DC Info (PHARMACY MONITORING -- do not chart) 1 each PRN DAILY PRN MC SEE COMMENTS ; Start 02/02/18 at 09:45; Status UNV Prochlorperazine Edisylate (Compazine) 10 mg PRN Q6HRS PRN IV NAUSEA/VOMITING 2ND CHOICE Last administered on 02/10/18at 10:07; Start 02/02/18 at 11:30 Vancomycin HCl (Vanco Per Pharmacy) 1 each PRN DAILY PRN MC SEE COMMENTS Last administered on 02/02/18at 13:57; Start 02/02/18 at 14:00; Stop 02/04/18 at 12: 02; Status DC Famotidine (Pepcid Vial) 20 mg DAILY IVP Last administered on 02/08/18at 09:00 ; Start 02/03/18 at 10:00; Stop 02/08/18 at 11:45; Status DC Alteplase, Recombinant (Cathflo) 2 mg 1X ONCE INT CAT Last administered on 03/14at 02:56; Start 02/04/18 at 03:00; Stop 02/04/18 at 03:01; Status DC Sodium Chloride 1,000 ml @ 1,000 mls/hr Q1H PRN IV hypotension; Start at 07:15; Stop 02/04/18 at 13:14; Status DC Albumin Human 200 ml @ 200 mls/hr 1X PRN PRN IV Hypotension Last administered on 02/04/18at 11:26; Start 02/04/18 at 07:15; Stop 02/04/18 at 13:14; Status DC Acetaminophen (Tylenol) 500 mg 1X PRN PRN PO MILD PAIN / TEMP; Start 02/04/18 at 07:15; Stop 02/05/18 at 07:14; Status DC Diphenhydramine HCl (Benadryl) 25 mg 1X PRN PRN IV ITCHING; Start 02/04/18 at 07:15; Stop 02/05/18 at 07:14; Status DC Diphenhydramine HCl (Benadryl) 25 mg 1X PRN PRN IV ITCHING; Start 02/04/18 at 07:15; Stop 02/05/18 at 07:14; Status DC Sodium Chloride 1,000 ml @ 400 mls/hr Q2H30M PRN IV PATENCY; Start 02/04/18 at 07:15; Stop 02/04/18 at 19:14; Status DC Info (PHARMACY MONITORING -- do not chart) 1 each PRN DAILY PRN MC SEE COMMENTS ; Start 02/04/18 at 07:15; Status Cancel Lidocaine HCl (Xylocaine-Mpf 2% Vial) 2 ml STK-MED ONCE .ROUTE ; Start at 09:43; Stop 02/04/18 at 09:44; Status DC Docusate Sodium (Colace) 100 mg PRN DAILY PRN PO CONSTIPATION Last administered on 02/07/18at 22:13; Start 02/04/18 at 10:30 Ceftriaxone Sodium 2 gm/ Dextrose 100 ml @ 200 mls/hr Q24H IV Last administered on 02/04/18at 14:24; Start 02/04/18 at 13:00; Stop 02/05/18 at 11 :49; Status DC Morphine Sulfate (Morphine Sulfate) 1 mg PRN Q10MIN PRN IV SEVERE PAIN; Start 02/05/18 at 07:00; Stop 02/06/18 at 06:59; Status DC Ringer's Solution 1,000 ml @ 30 mls/hr Q24H IV ; Start 02/05/18 at 07:00; Stop 02/05/18 at 18:59; Status DC Lidocaine HCl (Xylocaine-Mpf 1% 2ml Vial) 2 ml PRN 1X PRN ID IV START; Start 02/05/18 at 07:00; Stop 02/06/18 at 06:59; Status DC Hydromorphone HCl (Dilaudid) 0.5 mg PRN Q10MIN PRN IV SEV PAIN, Second choice; Start 02/05/18 at 07:00; Stop 02/06/18 at 06:59; Status DC Prochlorperazine Edisylate (Compazine) 5 mg PACU PRN PRN IV NAUSEA, MRX1; Start 02/05/18 at 07:00; Stop 02/06/18 at 06:59; Status DC Lidocaine HCl (Xylocaine-Mpf 2% Vial) 2 ml STK-MED ONCE .ROUTE ; Start at 10:00; Stop 02/05/18 at 08:19; Status DC Sodium Chloride 1,000 ml @ 75 mls/hr [id number] IV Last administered on at 07:00; Start 02/05/18 at 10:30; Stop 02/08/18 at 15:20; Status DC Cefepime HCl 1 gm/ Dextrose 50 ml @ 100 mls/hr DAILY IV ; Start 02/06/18 at 09 :00; Status UNV Vancomycin HCl (Vanco Per Pharmacy) 1 each PRN DAILY PRN MC SEE COMMENTS Last administered on 02/08/18at 14:35; Start 02/05/18 at 12:00; Stop 02/09/18 at 09 :50; Status DC Cefepime HCl (Maxipime) 1 gm Q24H IVP Last administered on 02/08/18at 14:49; Start 02/05/18 at 12:00; Stop 02/09/18 at 09:35; Status DC Propofol 20 ml @ As Directed STK-MED ONCE IV ; Start 02/05/18 at 12:08; Stop 02/05/18 at 12:09; Status DC Lidocaine HCl (Xylocaine-Mpf 2% Vial) 2 ml STK-MED ONCE .ROUTE ; Start at 12:08; Stop 02/05/18 at 12:09; Status DC Vancomycin HCl 1.5 gm/Sodium Chloride 500 ml @ 250 mls/hr 1X ONCE IV Last administered on 02/05/18at 14:05; Start 02/05/18 at 14:00; Stop 02/05/18 at 15 :59; Status DC Vancomycin HCl (Vancomycin Random Level) 1 each 1X ONCE MC Last administered on 02/06/18at 05:00; Start 02/06/18 at 05:00; Stop 02/06/18 at 05:01; Status DC Sodium Chloride 1,000 ml @ 1,000 mls/hr Q1H PRN IV hypotension; Start at 08:12; Stop 02/06/18 at 14:11; Status DC Sodium Chloride 1,000 ml @ 400 mls/hr Q2H30M PRN IV PATENCY; Start 02/06/18 at 08:12; Stop 02/06/18 at 20:11; Status DC Info (PHARMACY MONITORING -- do not chart) 1 each PRN DAILY PRN MC SEE COMMENTS ; Start 02/06/18 at 08:15; Status UNV Info (PHARMACY MONITORING -- do not chart) 1 each PRN DAILY PRN MC SEE COMMENTS ; Start 02/06/18 at 08:15; Status UNV Lidocaine HCl (Xylocaine-Mpf 1% 2ml Vial) 2 ml 1X ONCE ID Last administered on 02/06/18at 08:30; Start 02/06/18 at 08:30; Stop 02/06/18 at 08:31; Status DC Lidocaine HCl (Xylocaine-Mpf 2% Vial) 2 ml STK-MED ONCE .ROUTE ; Start at 08:32; Stop 02/06/18 at 08:33; Status DC Diphenhydramine HCl (Benadryl) 50 mg 1X ONCE IVP Last administered on at 09:10; Start 02/06/18 at 09:00; Stop 02/06/18 at 09:02; Status DC Vancomycin HCl (Vancomycin Random Level) 1 each 1X ONCE MC Last administered on 02/08/18at 05:00; Start 02/08/18 at 05:00; Stop 02/08/18 at 05:01; Status DC Lidocaine HCl (Xylocaine-Mpf 2% Vial) 2 ml STK-MED ONCE .ROUTE ; Start at 09:00; Stop 02/08/18 at 07:54; Status DC Polyethylene Glycol (miraLAX PACKET) 17 gm DAILY PO Last administered on at 08:56; Start 02/08/18 at 12:30 Famotidine (Pepcid) 20 mg QHS PO Last administered on 02/09/18at 19:32; Start 02/08/18 at 21:00 Vancomycin HCl 500 mg/Sodium Chloride 100 ml @ 100 mls/hr QTUTHSA IV ; Start 02/09/18 at 16:00; Stop 02/09/18 at 16:00; Status DC Sodium Chloride 1,000 ml @ 1,000 mls/hr Q1H PRN IV hypotension; Start at 08:21; Stop 02/09/18 at 14:20; Status DC Sodium Chloride 1,000 ml @ 400 mls/hr Q2H30M PRN IV PATENCY; Start 02/09/18 at 08:21; Stop 02/09/18 at 20:20; Status DC Info (PHARMACY MONITORING -- do not chart) 1 each PRN DAILY PRN MC SEE COMMENTS ; Start 02/09/18 at 08:30; Status UNV Info (PHARMACY MONITORING -- do not chart) 1 each PRN DAILY PRN MC SEE COMMENTS ; Start 02/09/18 at 08:30 Diphenhydramine HCl (Benadryl) 50 mg 1X ONCE IVP Last administered on at 09:06; Start 02/09/18 at 08:30; Stop 02/09/18 at 08:31; Status DC Lidocaine HCl (Xylocaine-Mpf 2% Vial) 2 ml STK-MED ONCE .ROUTE ; Start at 08:40; Stop 02/09/18 at 08:41; Status DC Linezolid/Dextrose 300 ml @ 300 mls/hr Q12HR IV Last administered on at 09:46; Start 02/09/18 at 10:00 Gentamicin Sulfate 1 each PRN DAILY PRN MC SEE COMMENTS Last administered on at 14:56; Start 02/09/18 at 09:30 Metronidazole 100 ml @ 100 mls/hr Q8HRS IV Last administered on 02/10/18at 04: 59; Start 02/09/18 at 14:00 Gentamicin Sulfate 140 mg/ Dextrose 103.5 ml @ 207 mls/hr 1X ONCE IV Last administered on 02/09/18at 12:26; Start 02/09/18 at 12:00; Stop 02/09/18 at 12 :29; Status DC Lubiprostone (Amitiza) 8 mcg BIDWMEALS PO Last administered on 02/10/18at 08:57 ; Start 02/09/18 at 17:00 Gentamicin Sulfate 1 each 1X ONCE MC ; Start 02/11/18 at 06:00; Stop at 06:01 Hydromorphone HCl (Dilaudid) 2 mg 1X ONCE IV ; Start 02/10/18 at 10:30; Stop 02/10/18 at 10:31 Active Scripts Active Percocet 10-325 Mg Tablet (Oxycodone/Acetaminophen) 1 Each Tablet 1 Tab PO Q4HRS Brilinta (Ticagrelor) 90 Mg Tablet 90 Mg PO BID 30 Days Morphine Sulfate Er (Morphine Sulfate) 15 Mg Tablet.er 15 Mg PO BID Reported Brilinta (Ticagrelor) 90 Mg Tablet 90 Mg PO BID Lidocaine 1 Each Adh..patch 1 Each TP PRN DAILY PRN Calcitriol 0.25 Mcg Capsule 1 Cap PO DAILY Tegretol (Carbamazepine) 200 Mg Tablet 1 Tab PO BID Tramadol Hcl 50 Mg Tablet 50 Mg PO Q4HRS PRN Lantus Solostar (Insulin Glargine,Hum.rec.anlog) 100 Unit/1 Ml Insuln.pen 22 Unit SQ QHS Diflucan (Fluconazole) 100 Mg Tablet 100 Mg PO PRN Carvedilol 3.125 Mg Tablet 12.5 Mg PO BID Erythromycin (Erythromycin Base) 250 Mg Capsule.dr 250 Mg PO BID Cardizem Cd (Diltiazem Hcl) 180 Mg Cap.er.24h 120 Mg PO DAILY Amiodarone Hcl 200 Mg Tablet 1 Tab PO DAILY Nystatin 15 Gm Powder 1 Susanna TP PRN BID PRN Proventil Hfa Inhaler (Albuterol Sulfate) 6.7 Gm Hfa.aer.ad 2 Puff IH BID PRN Zofran (Ondansetron Hcl) 4 Mg Tablet 4 Mg PO Q6-8HRS PRN Nephro-Shabbir Tablet (Folic Acid/Vitamin B Comp W-C) 0.8 Mg Tablet 1 Tab PO DAILY Tricor (Fenofibrate Nanocrystallized) 145 Mg Tablet 1 Tab PO HS Lipitor (Atorvastatin Calcium) 80 Mg Tablet 80 Mg PO HS Niacin 500 Mg Tablet 500 Mg PO HS Novolog (Insulin Aspart) 100 Unit/1 Ml Cartridge 0 SQ TIDAC sliding scale Aspirin 325 Mg Tablet 325 Mg PO DAILY Furosemide 80 Mg Tablet 80 Mg PO BID Docusate Sodium 100 Mg Capsule 1 Cap PO PRN PRN Nitrostat (Nitroglycerin) 0.4 Mg Tab.subl 0.4 Mg SL PRN Q5MIN PRN Take as needed for chest pain Vitals/I & O Vital Sign - Last 24 Hours 02/09/18 02/09/18 02/09/18 02/09/18 12:00 12:39 12:40 12:43 Pulse 83 83 83 Resp 16 B/P (MAP) 137/49 137/49 137/49 02/09/18 02/09/18 02/09/18 02/09/18 12:58 15:30 16:58 17:34 Temp 99.3 99.3 Pulse 76 76 Resp 18 18 18 B/P (MAP) 119/47 (71) 119/47 Pulse Ox 95 O2 Delivery Room Air Room Air 02/09/18 02/09/18 02/09/18 02/09/18 19:00 19:31 19:33 20:00 Temp 97.9 97.9 Pulse 76 Resp 18 B/P (MAP) 139/43 (75) Pulse Ox 99 O2 Delivery Nasal Cannula Room Air Room Air Room Air O2 Flow Rate 2.0 02/09/18 02/09/18 02/09/18 02/09/18 23:00 23:01 23:04 23:31 Temp 99.3 99.3 Pulse 72 Resp 16 B/P (MAP) 142/50 (80) Pulse Ox 99 O2 Delivery Nasal Cannula Room Air Room Air Room Air O2 Flow Rate 2.0 02/10/18 02/10/18 02/10/18 02/10/18 00:04 03:22 04:58 05:28 Temp 98.4 98.4 Pulse 69 Resp 18 B/P (MAP) 124/50 (74) Pulse Ox 99 O2 Delivery Room Air Room Air Room Air Room Air 02/10/18 02/10/18 02/10/18 02/10/18 07:00 08:56 09:00 10:06 Temp 98.0 98.0 Pulse 62 62 Resp 18 B/P (MAP) 105/43 (63) 105/43 Pulse Ox 99 O2 Delivery 4L Room Air Room Air Intake and Output 02/09/18 02/09/18 02/10/18 15:00 23:00 07:00 Intake Total 50 ml 100 ml Output Total 0 ml 450 ml Balance 50 ml -350 ml HONG OKEEFE Feb 10, 2018 10:27
[2018-02-10] MEDS ORDERED: HYDROmorphone 2 MG/ML VIAL IV ONE (10:30)
[2018-02-10 11:00] VITALS: BP 129/49
--- NOTE | 2018-02-10 11:40 | PDOC ---
Subjective: Subjective: Nausea and retching. Kept tea and toast down. No abd pain. Stooling. Objective: Vital Signs: Vital Signs Date Time Temp Pulse Resp B/P (MAP) Pulse Ox O2 Delivery O2 Flow Rate FiO2 02/10/18 10:06 Room Air 02/10/18 09:00 62 105/43 02/10/18 07:00 98.0 18 99 98.0 02/09/18 23:00 2.0 Labs: Laboratory Tests Test 02/09/18 16:42 02/09/18 21:17 02/10/18 05:00 02/10/18 07:11 Glucose (Fingerstick) 107 mg/dL 146 mg/dL 116 mg/dL White Blood Count 14.6 x10^3/uL Red Blood Count 2.45 x10^6/uL Hemoglobin 7.7 g/dL Hematocrit 23.2 % Mean Corpuscular Volume 95 fL Mean Corpuscular Hemoglobin 32 pg Mean Corpuscular Hemoglobin Concent 33 g/dL Red Cell Distribution Width 17.6 % Platelet Count 368 x10^3/uL Neutrophils (%) (Auto) 84 % Lymphocytes (%) (Auto) 5 % Monocytes (%) (Auto) 10 % Eosinophils (%) (Auto) 1 % Basophils (%) (Auto) 1 % Neutrophils # (Auto) 12.2 x10^3uL Lymphocytes # (Auto) 0.7 x10^3/uL Monocytes # (Auto) 1.4 x10^3/uL Eosinophils # (Auto) 0.1 x10^3/uL Basophils # (Auto) 0.1 x10^3/uL Sodium Level 140 mmol/L Potassium Level 3.8 mmol/L Chloride Level 101 mmol/L Carbon Dioxide Level 30 mmol/L Anion Gap 9 Blood Urea Nitrogen 17 mg/dL Creatinine 3.8 mg/dL Estimated GFR (Cockcroft-Gault) 12.5 BUN/Creatinine Ratio 4 Glucose Level 117 mg/dL Calcium Level 8.3 mg/dL Total Bilirubin 0.5 mg/dL Aspartate Amino Transf (AST/SGOT) 14 U/L Alanine Aminotransferase (ALT/SGPT) 14 U/L Alkaline Phosphatase 86 U/L Total Protein 5.0 g/dL Albumin 1.9 g/dL Albumin/Globulin Ratio 0.6 Test 02/10/18 11:23 Glucose (Fingerstick) 249 mg/dL Imaging: Abd US 02/09 IMPRESSION: 1. Distended hydropic gallbladder containing sludge. 2. Hepatomegaly. 3. Slightly dilated common bile duct for patient age. No obstructing lesion is seen sonographically. 4. 1.4 cm lobular lesion along the left renal cortex, stable compared to the prior CT. The differential includes a complex cyst as well as solid neoplasm. This can be better assessed with a renal protocol CT or MRI. PE: GEN: NAD, resting LUNGS: clear HEART: RRR ABD: soft, non-tender EXTREM: RLE wound, LBKA NEURO/PSYCH: A & O 3, drowsy A/P: S/p RLE bypass/infection/debridement Chronic anemia - stable, ESRD on HD, EGD last week unrevealing Chronic nausea, h/o gastroparesis and GERD, abnormal GB on US as above -- Will review US w/ Dr. Fagan re: need for HIDA, etc. ?retry Reglan instead of e-mycin - she says tolerated well in the past DAVIDSON-EDDY IBARRA Feb 10, 2018 11:40
--- NOTE | 2018-02-10 12:20 | PDOC ---
PROGRESS NOTES Chief Complaint Chief Complaint RIght groin sx wound infection s/p i and d 02/01 with wound vac on, wound cx + Kpna recent right leg PAD s/p R fem to pop bypass ESRD on dialysis h/o L BKA CAD w/ hx CABG, EF 50% Diabetic retinopathy Macular degeneration Cataracts H/O CAD with multiple stents Leukocytosis post steroids - trending down Right lower extremity swelling with superficial skin breakdown from injury on with abrasion and subsequent redness and swelling, treated with outpatient Keflex End-stage renal disease, on dialysis via AV fistula here ,at home per pt is on PD. ANTIBIOTIC ALLERGY TO MEROPENEM, PIPERACILLIN AND TAZOBACTAM CAUSING PEELING AND BLEEDING OF THE SKIN. ALSO, SULFA. TOLERATES KEFLEX AND HAS BEEN ON CEFAZOLIN, THOUGH HAS CAUSED ITCHING. H/o recent urinary tract infection, though urine cultures are negative, on Cipro POA for 5 days. A- fib, amiodarone therapy Gastroparesis, E. Mycin Left retinal optic disc drusen, bl blurry vision EGD 02/05 non erosive gatritis decubitus ulcer gastroparesis Distended hydropic gallbladder containing sludge. Hepatomegaly. 1.4 cm lobular lesion along the left renal cortex stable plan: fu with id, vascular, renal, gi on wound vac, wound care change abx to zyvox, genta, flagyl as per ID, may need CT if cont not responding to abx. neg bcx so far. wound cx + kPNA cont home meds dvt ppx fu with ophthal as outpt discussed with pt about the US finding, likely no sx intervention needed at this time point given pt has no abd pain and other issues going on, fu with GI talked to wound care, FU WITH vascular, may need more i and d dc select when stable History of Present Illness History of Present Illness Pt seen and examined Dw RN Sitting up right 02/09/18:higher wbc 19, more nausea. has n/o gastroparesis told me has decubitus ulcer, last pic 02/07 looks ok 02/10: wbc better to 14, but there is some new necrotic tissues at the wound edge seen when changing the VAC US showed gallbladder sludge Vitals Vitals Vital Signs Date Time Temp Pulse Resp B/P (MAP) Pulse Ox O2 Delivery O2 Flow Rate FiO2 02/10/18 11:00 98.0 69 18 129/49 (75) 99 4l 98.0 02/09/18 23:00 2.0 Physical Exam Physical Exam GENERAL: Propped up in bed, looks better OC/Op- dry LUNGS: Clear. HEART: S1, S2 regular. ABDOMEN: Soft, NT, ND EXTREMITIES: Left BKA. RLE less swollen and red; + wrinkles. Incision well-approx w/ alberto. Wound very clean and granulating. Heel without wound NEUROLOGIC: More Alert and more responsive SKIN: without rash Tunnelled RIJ (01/29) clean Left chest line is clean General: Alert, Oriented X3, Cooperative, No acute distress Heart: Regular rate, Normal S1, Normal S2, No murmurs, Gallops Lungs: Wheezing Abdomen: Normal bowel sounds, Soft, No tenderness, No hepatosplenomegaly, No masses Extremities: Other (wound inspected. Excellent muscle viability. Some washburn exudate peripheral edges superior and medial. Should respond to further wound suction dressing. measurements recorded.) Skin: No breakdown, Other (dehiscence of the proximal right common femoral incision and vein harvest site with lower extremity edema and mild cellulitis) Labs LABS Laboratory Tests Test 02/09/18 16:42 02/09/18 21:17 02/10/18 05:00 02/10/18 07:11 Glucose (Fingerstick) 107 mg/dL (70-99) 146 mg/dL (70-99) 116 mg/dL (70-99) White Blood Count 14.6 x10^3/uL (4.0-11.0) Red Blood Count 2.45 x10^6/uL (3.50-5.40) Hemoglobin 7.7 g/dL (12.0-15.5) Hematocrit 23.2 % (36.0-47.0) Mean Corpuscular Volume 95 fL (79-100) Mean Corpuscular Hemoglobin 32 pg (25-35) Mean Corpuscular Hemoglobin Concent 33 g/dL (31-37) Red Cell Distribution Width 17.6 % (11.5-14.5) Platelet Count 368 x10^3/uL (140-400) Neutrophils (%) (Auto) 84 % (31-73) Lymphocytes (%) (Auto) 5 % (24-48) Monocytes (%) (Auto) 10 % (0-9) Eosinophils (%) (Auto) 1 % (0-3) Basophils (%) (Auto) 1 % (0-3) Neutrophils # (Auto) 12.2 x10^3uL (1.8-7.7) Lymphocytes # (Auto) 0.7 x10^3/uL (1.0-4.8) Monocytes # (Auto) 1.4 x10^3/uL (0.0-1.1) Eosinophils # (Auto) 0.1 x10^3/uL (0.0-0.7) Basophils # (Auto) 0.1 x10^3/uL (0.0-0.2) Sodium Level 140 mmol/L (136-145) Potassium Level 3.8 mmol/L (3.5-5.1) Chloride Level 101 mmol/L (98-107) Carbon Dioxide Level 30 mmol/L (21-32) Anion Gap 9 (6-14) Blood Urea Nitrogen 17 mg/dL (7-20) Creatinine 3.8 mg/dL (0.6-1.0) Estimated GFR (Cockcroft-Gault) 12.5 BUN/Creatinine Ratio 4 (6-20) Glucose Level 117 mg/dL (70-99) Calcium Level 8.3 mg/dL (8.5-10.1) Total Bilirubin 0.5 mg/dL (0.2-1.0) Aspartate Amino Transf (AST/SGOT) 14 U/L (15-37) Alanine Aminotransferase (ALT/SGPT) 14 U/L (14-59) Alkaline Phosphatase 86 U/L (46-116) Total Protein 5.0 g/dL (6.4-8.2) Albumin 1.9 g/dL (3.4-5.0) Albumin/Globulin Ratio 0.6 (1.0-1.7) Test 02/10/18 11:23 Glucose (Fingerstick) 249 mg/dL (70-99) Assessment and Plan Assessmemt and Plan Problems Medical Problems: (1) Chronic renal failure Status: Acute Comment Review of Relevant I have reviewed the following items bert (where applicable) has been applied. Labs Laboratory Tests Test 02/08/18 16:53 02/08/18 20:23 02/09/18 05:15 02/09/18 07:37 Glucose (Fingerstick) 125 mg/dL (70-99) 111 mg/dL (70-99) 99 mg/dL (70-99) White Blood Count 19.0 x10^3/uL (4.0-11.0) Red Blood Count 2.48 x10^6/uL (3.50-5.40) Hemoglobin 7.8 g/dL (12.0-15.5) Hematocrit 23.8 % (36.0-47.0) Mean Corpuscular Volume 96 fL (79-100) Mean Corpuscular Hemoglobin 32 pg (25-35) Mean Corpuscular Hemoglobin Concent 33 g/dL (31-37) Red Cell Distribution Width 17.0 % (11.5-14.5) Platelet Count 386 x10^3/uL (140-400) Neutrophils (%) (Auto) 88 % (31-73) Lymphocytes (%) (Auto) 4 % (24-48) Monocytes (%) (Auto) 7 % (0-9) Eosinophils (%) (Auto) 0 % (0-3) Basophils (%) (Auto) 1 % (0-3) Neutrophils # (Auto) 16.6 x10^3uL (1.8-7.7) Lymphocytes # (Auto) 0.8 x10^3/uL (1.0-4.8) Monocytes # (Auto) 1.2 x10^3/uL (0.0-1.1) Eosinophils # (Auto) 0.1 x10^3/uL (0.0-0.7) Basophils # (Auto) 0.2 x10^3/uL (0.0-0.2) Sodium Level 143 mmol/L (136-145) Potassium Level 4.4 mmol/L (3.5-5.1) Chloride Level 104 mmol/L (98-107) Carbon Dioxide Level 26 mmol/L (21-32) Anion Gap 13 (6-14) Blood Urea Nitrogen 30 mg/dL (7-20) Creatinine 5.2 mg/dL (0.6-1.0) Estimated GFR (Cockcroft-Gault) 8.7 BUN/Creatinine Ratio 6 (6-20) Glucose Level 117 mg/dL (70-99) Calcium Level 8.3 mg/dL (8.5-10.1) Total Bilirubin 0.5 mg/dL (0.2-1.0) Aspartate Amino Transf (AST/SGOT) 12 U/L (15-37) Alanine Aminotransferase (ALT/SGPT) 13 U/L (14-59) Alkaline Phosphatase 94 U/L (46-116) Total Protein 5.2 g/dL (6.4-8.2) Albumin 2.0 g/dL (3.4-5.0) Albumin/Globulin Ratio 0.6 (1.0-1.7) Lipase 198 U/L (73-393) Test 02/09/18 16:42 02/09/18 21:17 02/10/18 05:00 02/10/18 07:11 Glucose (Fingerstick) 107 mg/dL (70-99) 146 mg/dL (70-99) 116 mg/dL (70-99) White Blood Count 14.6 x10^3/uL (4.0-11.0) Red Blood Count 2.45 x10^6/uL (3.50-5.40) Hemoglobin 7.7 g/dL (12.0-15.5) Hematocrit 23.2 % (36.0-47.0) Mean Corpuscular Volume 95 fL (79-100) Mean Corpuscular Hemoglobin 32 pg (25-35) Mean Corpuscular Hemoglobin Concent 33 g/dL (31-37) Red Cell Distribution Width 17.6 % (11.5-14.5) Platelet Count 368 x10^3/uL (140-400) Neutrophils (%) (Auto) 84 % (31-73) Lymphocytes (%) (Auto) 5 % (24-48) Monocytes (%) (Auto) 10 % (0-9) Eosinophils (%) (Auto) 1 % (0-3) Basophils (%) (Auto) 1 % (0-3) Neutrophils # (Auto) 12.2 x10^3uL (1.8-7.7) Lymphocytes # (Auto) 0.7 x10^3/uL (1.0-4.8) Monocytes # (Auto) 1.4 x10^3/uL (0.0-1.1) Eosinophils # (Auto) 0.1 x10^3/uL (0.0-0.7) Basophils # (Auto) 0.1 x10^3/uL (0.0-0.2) Sodium Level 140 mmol/L (136-145) Potassium Level 3.8 mmol/L (3.5-5.1) Chloride Level 101 mmol/L (98-107) Carbon Dioxide Level 30 mmol/L (21-32) Anion Gap 9 (6-14) Blood Urea Nitrogen 17 mg/dL (7-20) Creatinine 3.8 mg/dL (0.6-1.0) Estimated GFR (Cockcroft-Gault) 12.5 BUN/Creatinine Ratio 4 (6-20) Glucose Level 117 mg/dL (70-99) Calcium Level 8.3 mg/dL (8.5-10.1) Total Bilirubin 0.5 mg/dL (0.2-1.0) Aspartate Amino Transf (AST/SGOT) 14 U/L (15-37) Alanine Aminotransferase (ALT/SGPT) 14 U/L (14-59) Alkaline Phosphatase 86 U/L (46-116) Total Protein 5.0 g/dL (6.4-8.2) Albumin 1.9 g/dL (3.4-5.0) Albumin/Globulin Ratio 0.6 (1.0-1.7) Test 02/10/18 11:23 Glucose (Fingerstick) 249 mg/dL (70-99) Laboratory Tests Test 02/09/18 16:42 02/09/18 21:17 02/10/18 05:00 02/10/18 07:11 Glucose (Fingerstick) 107 mg/dL (70-99) 146 mg/dL (70-99) 116 mg/dL (70-99) White Blood Count 14.6 x10^3/uL (4.0-11.0) Red Blood Count 2.45 x10^6/uL (3.50-5.40) Hemoglobin 7.7 g/dL (12.0-15.5) Hematocrit 23.2 % (36.0-47.0) Mean Corpuscular Volume 95 fL (79-100) Mean Corpuscular Hemoglobin 32 pg (25-35) Mean Corpuscular Hemoglobin Concent 33 g/dL (31-37) Red Cell Distribution Width 17.6 % (11.5-14.5) Platelet Count 368 x10^3/uL (140-400) Neutrophils (%) (Auto) 84 % (31-73) Lymphocytes (%) (Auto) 5 % (24-48) Monocytes (%) (Auto) 10 % (0-9) Eosinophils (%) (Auto) 1 % (0-3) Basophils (%) (Auto) 1 % (0-3) Neutrophils # (Auto) 12.2 x10^3uL (1.8-7.7) Lymphocytes # (Auto) 0.7 x10^3/uL (1.0-4.8) Monocytes # (Auto) 1.4 x10^3/uL (0.0-1.1) Eosinophils # (Auto) 0.1 x10^3/uL (0.0-0.7) Basophils # (Auto) 0.1 x10^3/uL (0.0-0.2) Sodium Level 140 mmol/L (136-145) Potassium Level 3.8 mmol/L (3.5-5.1) Chloride Level 101 mmol/L (98-107) Carbon Dioxide Level 30 mmol/L (21-32) Anion Gap 9 (6-14) Blood Urea Nitrogen 17 mg/dL (7-20) Creatinine 3.8 mg/dL (0.6-1.0) Estimated GFR (Cockcroft-Gault) 12.5 BUN/Creatinine Ratio 4 (6-20) Glucose Level 117 mg/dL (70-99) Calcium Level 8.3 mg/dL (8.5-10.1) Total Bilirubin 0.5 mg/dL (0.2-1.0) Aspartate Amino Transf (AST/SGOT) 14 U/L (15-37) Alanine Aminotransferase (ALT/SGPT) 14 U/L (14-59) Alkaline Phosphatase 86 U/L (46-116) Total Protein 5.0 g/dL (6.4-8.2) Albumin 1.9 g/dL (3.4-5.0) Albumin/Globulin Ratio 0.6 (1.0-1.7) Test 02/10/18 11:23 Glucose (Fingerstick) 249 mg/dL (70-99) Microbiology 02/06/18 Blood Culture - Preliminary, Resulted NO GROWTH AFTER 4 DAYS 01/27/18 Anaerobic/Aerobic Culture - Final, Complete 01/27/18 Anaerobic Culture Result 1 (ROSALIND) - Final, Complete 01/27/18 Aerobic Culture - Final, Complete 01/27/18 Aerobic Culture Result 1 (ROSALIND) - Final, Complete 01/27/18 Antimicrobic Susceptibility - Final, Complete 01/27/18 Gram Stain - Final, Complete 01/27/18 Gram Stain Result 1 (ROSALIND) - Final, Complete 01/27/18 Gram Stain Result 2 (ROSALIND) - Final, Complete Medications Current Medications Hydromorphone HCl (Dilaudid) 2 mg 1X ONCE IV Last administered on 01/26/18at 22 :39; Start 01/26/18 at 22:00; Stop 01/26/18 at 22:01; Status DC Vancomycin HCl (Vanco Per Pharmacy) 1 each PRN DAILY PRN MC SEE COMMENTS Last administered on 01/31/18at 17:20; Start 01/26/18 at 22:45; Stop 02/01/18 at 11:41 ; Status DC Vancomycin HCl 1.75 gm/Sodium Chloride 500 ml @ 250 mls/hr 1X ONCE IV Last administered on 01/26/18at 23:53; Start 01/26/18 at 23:00; Stop 01/27/18 at 00:59 ; Status DC Ondansetron HCl (Zofran) 4 mg PRN Q8HRS PRN IV NAUSEA/VOMITING 1ST CHOICE; Start 01/26/18 at 23:15; Stop 01/27/18 at 23:14; Status DC Sodium Chloride 1,000 ml @ 75 mls/hr [id number] IV Last administered on at 00:39; Start 01/26/18 at 23:30; Stop 01/27/18 at 23:29; Status DC Pharmacy Consult (C.diff Med Screen By Rx) 1 each 1X ONCE MC ; Start 01/27/18 at 01:00; Stop 01/27/18 at 01:01; Status Cancel Influenza Virus Vaccine (Afluria Trivalent [id number] Syringe) 0.5 ml ONCE ONCE VAX IM Last administered on 01/27/18at 09:00; Start 01/27/18 at 09:00; Stop 01/27/18 at 09:01; Status DC Vancomycin HCl (Vancomycin Random Level) 1 each 1X ONCE MC Last administered on 01/28/18at 05:00; Start 01/28/18 at 05:00; Stop 01/28/18 at 05:01; Status DC Hydromorphone HCl (Dilaudid) 1 mg PRN Q3HRS PRN IV SEVERE PAIN Last administered on 02/10/18at 10:06; Start 01/27/18 at 03:30 Ondansetron HCl (Zofran) 4 mg PRN Q6HRS PRN IV NAUSEA/VOMITING; Start 01/27/18 at 10:45; Stop 01/27/18 at 18:00; Status DC Fentanyl Citrate (Fentanyl 2ml Vial) 25 mcg PRN Q5MIN PRN IV MILD PAIN; Start 01/27/18 at 10:45; Stop 01/27/18 at 18:00; Status DC Fentanyl Citrate (Fentanyl 2ml Vial) 50 mcg PRN Q5MIN PRN IV MODERATE TO SEVERE PAIN; Start 01/27/18 at 10:45; Stop 01/27/18 at 18:00; Status DC Morphine Sulfate (Morphine Sulfate) 1 mg PRN Q10MIN PRN IV SEVERE PAIN Last administered on 01/27/18at 16:28; Start 01/27/18 at 10:45; Stop 01/27/18 at 18:00 ; Status DC Ringer's Solution 1,000 ml @ 30 mls/hr Q24H IV Last administered on 01/27/18at 10:35; Start 01/27/18 at 10:35; Stop 01/27/18 at 19:36; Status DC Lidocaine HCl (Xylocaine-Mpf 1% 2ml Vial) 2 ml 1X PRN PRN ID IV START; Start 01/27/18 at 10:45; Stop 01/27/18 at 18:00; Status DC Hydromorphone HCl (Dilaudid) 0.5 mg PRN Q10MIN PRN IV SEV PAIN, Second choice Last administered on 01/27/18at 15:59; Start 01/27/18 at 10:45; Stop 01/27/18 at 18:00; Status DC Prochlorperazine Edisylate (Compazine) 5 mg PACU PRN PRN IV NAUSEA, MRX1; Start 01/27/18 at 10:45; Stop 01/27/18 at 18:00; Status DC Amiodarone HCl (Cordarone) 200 mg DAILY PO Last administered on 02/10/18 09: 00; Start 01/27/18 at 12:30 Aspirin (Anthony Aspirin) 325 mg DAILY PO Last administered on 01/28/18 09:13; Start 01/27/18 at 12:30; Stop 01/28/18 at 14:26; Status DC Carbamazepine (TEGretol) 200 mg BID PO Last administered on 02/10/18 08:57; Start 01/27/18 at 12:30 Carvedilol (Coreg) 12.5 mg BIDWMEALS PO Last administered on 02/09/18 17:34; Start 01/27/18 at 12:30 Vitamin B Complex/ Vitamin C (Melly-Shabbir) 1 tab DAILY PO Last administered on 08:57; Start 01/27/18 at 12:30 Furosemide (Lasix) 80 mg [id number] PO Last administered on 02/10/18 08:57; Start 01/27/18 at 12:30 Insulin Glargine (Lantus) 22 units QHS SQ Last administered on 02/06/18 22:21 ; Start 01/27/18 at 21:00 Morphine Sulfate (Ms Contin) 15 mg BID PO Last administered on 02/10/18 08:56 ; Start 01/27/18 at 12:30 Nitroglycerin (Nitrostat) 0.4 mg PRN Q5MIN PRN SL CHEST PAIN; Start 01/27/18 at 12:00 Nystatin (Nystop) 1 susanna PRN BID PRN TP SKIN BREAKDOWN; Start 01/27/18 at 12:00 Tramadol HCl (Ultram) 50 mg PRN Q4HRS PRN PO HEADACHE Last administered on 04:36; Start 01/27/18 at 12:00 Non-Formulary Medication (Albuterol Sulfate (Proventil Hfa Inhaler)) 2 puff BID PRN IH FOR ASTHMA; Start 01/27/18 at 12:00; Status UNV Atorvastatin Calcium (Lipitor) 80 mg QHS PO Last administered on 02/09/18 19: 31; Start 01/27/18 at 21:00 Calcitriol (Rocaltrol) 0.25 mcg DAILY PO Last administered on 02/10/18 08:57 ; Start 01/27/18 at 12:30 Diltiazem HCl (Cardizem 24hr Cd) 120 mg DAILY PO Last administered on at 12:43; Start 01/27/18 at 12:30 Erythromycin (E-Mycin) 250 mg BID PO Last administered on 02/10/18at 08:56; Start 01/27/18 at 21:00 Fenofibrate (Lofibra) 134 mg QHS PO Last administered on 02/09/18at 19:31; Start 01/27/18 at 21:00 Non-Formulary Medication (Fluconazole (Diflucan)) 100 mg PRN PO ; Start at 12:00; Status UNV Lidocaine (Lidoderm) 1 patch PRN DAILY PRN TD PAIN; Start 01/27/18 at 09:00 Niacin (Slo-Niacin) 500 mg QHS PO Last administered on 02/09/18at 19:31; Start 01/27/18 at 21:00 Ondansetron HCl (Zofran Odt) 4 mg PRN Q6HRS PRN PO NAUSEA/VOMITING Last administered on 02/07/18at 16:53; Start 01/27/18 at 12:15 Miscellaneous (Lidoderm Patch Removal) 1 ea QHS MC Last administered on at 20:57; Start 01/27/18 at 21:00 Albuterol Sulfate (Ventolin Neb Soln) 2.5 mg PRN BID PRN NEB SHORTNESS OF BREATH Last administered on 01/27/18at 21:59; Start 01/27/18 at 12:30 Lidocaine HCl (Lidocaine 1% 50ml Vial) 50 ml 1X ONCE INJ Last administered on 01/27/18at 14:06; Start 01/27/18 at 12:45; Stop 01/27/18 at 12:46; Status DC Hydromorphone HCl (Dilaudid) 2 mg STK-MED ONCE .ROUTE ; Start 01/27/18 at 12:36 ; Stop 01/27/18 at 12:38; Status DC Propofol 20 ml @ As Directed STK-MED ONCE IV ; Start 01/27/18 at 12:38; Stop at 12:39; Status DC Bacitracin [id number] unit/Sodium Chloride 3,000 ml @ 0 mls/hr 1X ONCE IR ; Start 01/27/18 at 13:15; Stop 01/27/18 at 13:16; Status Cancel Dexamethasone Sodium Phosphate (Decadron) 20 mg STK-MED ONCE .ROUTE ; Start 01/27/18 at 13:11; Stop 01/27/18 at 13:12; Status DC Ondansetron HCl (Zofran) 4 mg STK-MED ONCE .ROUTE ; Start 01/27/18 at 13:11; Stop 01/27/18 at 13:12; Status DC Sevoflurane (Ultane) 30 ml STK-MED ONCE IH ; Start 01/27/18 at 13:11; Stop 01/27 at 13:12; Status DC Bacitracin (Bacitracin) 50,000 unit STK-MED ONCE IRR Last administered on at 13:58; Start 01/27/18 at 12:14; Stop 01/27/18 at 13:16; Status DC Clopidogrel Bisulfate (Plavix) 75 mg DAILYWBKFT PO Last administered on at 09:13; Start 01/28/18 at 08:00; Stop 01/28/18 at 14:28; Status DC Hydromorphone HCl (Dilaudid) 2 mg STK-MED ONCE .ROUTE ; Start 01/27/18 at 15:38 ; Stop 01/27/18 at 15:40; Status DC Gentamicin Sulfate 235 mg/ Dextrose 105.875 ml @ 105.875 mls/hr 1X ONCE IV Last administered on 01/27/18at 19:56; Start 01/27/18 at 16:00; Stop 01/27/18 at 16:59; Status DC Lactobacillus Rhamnosus (Culturelle) 1 cap BID PO Last administered on at 08:59; Start 01/27/18 at 21:00 Cefepime HCl 1 gm/ Dextrose 50 ml @ 100 mls/hr DAILY IV ; Start 01/29/18 at 09: 00; Status UNV Metronidazole 100 ml @ 100 mls/hr Q12HR IV Last administered on 02/02/18at 21: 00; Start 01/28/18 at 10:00; Stop 02/03/18 at 10:49; Status DC Cefepime HCl (Maxipime) 1 gm Q24H IVP Last administered on 02/03/18at 10:54; Start 01/28/18 at 10:00; Stop 02/04/18 at 12:02; Status DC Lidocaine HCl (Xylocaine-Mpf 2% Vial) 2 ml STK-MED ONCE .ROUTE ; Start 01/28/18 at 11:41; Stop 01/28/18 at 11:42; Status DC Sodium Chloride 1,000 ml @ 1,000 mls/hr Q1H PRN IV hypotension; Start 01/28/18 at 12:09; Stop 01/28/18 at 18:08; Status DC Info (PHARMACY MONITORING -- do not chart) 1 each PRN DAILY PRN MC SEE COMMENTS ; Start 01/28/18 at 12:15; Status UNV Info (PHARMACY MONITORING -- do not chart) 1 each PRN DAILY PRN MC SEE COMMENTS ; Start 01/28/18 at 12:15; Stop 01/31/18 at 09:10; Status DC Lidocaine HCl (Xylocaine-Mpf 2% Vial) 2 ml 1X ONCE INJ ; Start 01/28/18 at 12: 15; Stop 01/28/18 at 12:21; Status DC Ticagrelor (Brilinta) 90 mg BID PO Last administered on 02/10/18at 08:57; Start 01/28/18 at 21:00 Diphenhydramine HCl (Benadryl) 25 mg PRN Q6HRS PRN PO ITCHING; Start 01/28/18 at 14:15 Aspirin (Ecotrin) 81 mg DAILYWBKFT PO Last administered on 02/10/18at 08:57; Start 01/29/18 at 08:00 Insulin Human Lispro (HumaLOG) 0-5 UNITS TIDWMEALS SQ Last administered on at 09:07; Start 01/28/18 at 17:00 Dextrose (Dextrose 50%-Water Syringe) 12.5 gm PRN Q15MIN PRN IV SEE COMMENTS Last administered on 02/05/18at 08:50; Start 01/28/18 at 14:45 Hydralazine HCl (Apresoline) 10 mg PRN TID PRN PO hypertension; Start 01/28/18 at 14:45 Oxycodone/ Acetaminophen (Percocet 10/325) 1 tab PRN Q4HRS PRN PO pain SEVERE Last administered on 02/09/18at 23:04; Start 01/29/18 at 07:45 Promethazine HCl (Phenergan Supp) 12.5 mg 1X ONCE IN ; Start 01/29/18 at 12:15 ; Stop 01/29/18 at 12:36; Status DC Promethazine HCl (Phenergan Im) 12.5 mg 1X ONCE IM ; Start 01/29/18 at 12:45; Stop 01/29/18 at 12:46; Status DC Lidocaine/ Epinephrine (LIDOCAINE 1%-EPI 1:100,000 Multi-Dose) 20 ml STK-MED ONCE .ROUTE ; Start 01/29/18 at 12:45; Stop 01/29/18 at 12:47; Status DC Heparin Sodium (Porcine) (Hep Lock Adult) 500 unit STK-MED ONCE IV ; Start 01/29 at 12:45; Stop 01/29/18 at 12:47; Status DC Morphine Sulfate (Morphine Sulfate) 10 mg STK-MED ONCE .ROUTE ; Start 01/29/18 at 13:23; Stop 01/29/18 at 13:25; Status DC Midazolam HCl (Versed) 2 mg STK-MED ONCE .ROUTE ; Start 01/29/18 at 13:23; Stop 01/29/18 at 13:25; Status DC Morphine Sulfate (Morphine Sulfate) 1 mg PRN Q10MIN PRN IV SEVERE PAIN Last administered on 02/01/18at 15:46; Start 02/01/18 at 07:00; Stop 02/02/18 at 06:59 ; Status DC Ringer's Solution 1,000 ml @ 30 mls/hr Q24H IV ; Start 02/01/18 at 07:00; Stop 02/01/18 at 18:59; Status DC Lidocaine HCl (Xylocaine-Mpf 1% 2ml Vial) 2 ml PRN 1X PRN ID PRIOR TO IV START ; Start 02/01/18 at 07:00; Stop 02/02/18 at 06:59; Status DC Hydromorphone HCl (Dilaudid) 0.5 mg PRN Q10MIN PRN IV SEV PAIN, Second choice Last administered on 02/01/18at 16:08; Start 02/01/18 at 07:00; Stop 02/02/18 at 06:59; Status DC Prochlorperazine Edisylate (Compazine) 5 mg PACU PRN PRN IV NAUSEA, MRX1; Start 02/01/18 at 07:00; Stop 02/02/18 at 06:59; Status DC Lidocaine/ Epinephrine (LIDOCAINE 1%-EPI 1:100,000 Multi-Dose) 8 ml 1X ONCE IJ Last administered on 01/29/18at 14:01; Start 01/29/18 at 14:00; Stop 01/29/18 at 14:17; Status DC Heparin Sodium (Porcine) (Hep Lock Adult) 500 unit 1X ONCE IV Last administered on 01/29/18at 14:04; Start 01/29/18 at 14:00; Stop 01/29/18 at 14:17 ; Status DC Morphine Sulfate (Morphine Sulfate) 5 mg 1X ONCE IV Last administered on at 14:01; Start 01/29/18 at 14:00; Stop 01/29/18 at 14:17; Status DC Ondansetron HCl (Zofran) 4 mg PRN Q6HRS PRN IV NAUSEA/VOMITING 1ST CHOICE Last administered on 02/09/18at 08:22; Start 01/29/18 at 14:45 Vancomycin HCl 500 mg/Sodium Chloride 100 ml @ 100 mls/hr 1X ONCE IV Last administered on 01/29/18at 21:04; Start 01/29/18 at 18:00; Stop 01/29/18 at 18:59 ; Status DC Sodium Chloride 1,000 ml @ 1,000 mls/hr Q1H PRN IV hypotension; Start 01/30/18 at 13:09; Stop 01/30/18 at 19:08; Status DC Sodium Chloride (Normal Saline Flush) 10 ml 1X PRN PRN IV AP catheter pack; Start 01/30/18 at 13:15; Stop 01/31/18 at 13:14; Status DC Sodium Chloride (Normal Saline Flush) 10 ml 1X PRN PRN IV ANIMAL KILLER catheter pack; Start 01/30/18 at 13:15; Stop 01/31/18 at 13:14; Status DC Sodium Chloride 1,000 ml @ 400 mls/hr Q2H30M PRN IV PATENCY; Start 01/30/18 at 13:09; Stop 01/31/18 at 01:08; Status DC Info (PHARMACY MONITORING -- do not chart) 1 each PRN DAILY PRN MC SEE COMMENTS ; Start 01/30/18 at 13:15; Stop 01/30/18 at 13:17; Status DC Info (PHARMACY MONITORING -- do not chart) 1 each PRN DAILY PRN MC SEE COMMENTS ; Start 01/30/18 at 13:15; Stop 02/04/18 at 07:27; Status DC Lidocaine HCl (Lidocaine 1% 50ml Vial) 50 ml 1X ONCE INJ ; Start 01/30/18 at 15 :45; Stop 01/30/18 at 15:46; Status DC Vancomycin HCl 500 mg/Sodium Chloride 100 ml @ 100 mls/hr ONCE ONCE IV Last administered on 01/30/18at 20:49; Start 01/30/18 at 18:00; Stop 01/30/18 at 18:59 ; Status DC Cefazolin Sodium 1 gm/Sodium Chloride 500 ml @ 500 mls/hr 1X ONCE IRR ; Start 02/01/18 at 06:00; Stop 02/01/18 at 06:59; Status DC Lidocaine HCl (Xylocaine-Mpf 2% Vial) 2 ml STK-MED ONCE .ROUTE ; Start 01/28/18 at 12:00; Stop 02/01/18 at 08:30; Status DC Darbepoetin Mauricio (Aranesp) 60 mcg [id number] SQ Last administered on 02/08/18at 20:41; Start 02/01/18 at 21:00 Cellulose (Surgicel Fibrillar 1x2) 1 each STK-MED ONCE .ROUTE ; Start 02/01/18 at 12:05; Stop 02/01/18 at 13:06; Status DC Lidocaine HCl (Xylocaine 1% Pf 30ml Vial) 30 ml 1X ONCE INJ ; Start 02/01/18 at 13:15; Stop 02/01/18 at 13:18; Status DC Sodium Chloride 1,000 ml @ 75 mls/hr [id number] IV Last administered on at 00:15; Start 02/01/18 at 13:45; Stop 02/02/18 at 16:43; Status DC Morphine Sulfate (Morphine Sulfate) 10 mg STK-MED ONCE .ROUTE ; Start 02/01/18 at 14:24; Stop 02/01/18 at 14:25; Status DC Midazolam HCl (Versed) 2 mg STK-MED ONCE .ROUTE ; Start 02/01/18 at 14:24; Stop 02/01/18 at 14:25; Status DC Midazolam HCl (Versed) 2 mg STK-MED ONCE .ROUTE ; Start 02/01/18 at 14:25; Stop 02/01/18 at 14:26; Status DC Propofol 20 ml @ As Directed STK-MED ONCE IV ; Start 02/01/18 at 14:25; Stop at 14:26; Status DC Dexamethasone Sodium Phosphate (Decadron) 20 mg STK-MED ONCE .ROUTE ; Start 02/01/18 at 14:25; Stop 02/01/18 at 14:26; Status DC Ondansetron HCl (Zofran) 4 mg STK-MED ONCE .ROUTE ; Start 02/01/18 at 14:25; Stop 02/01/18 at 14:26; Status DC Bacitracin (Bacitracin) 50,000 unit STK-MED ONCE IRR Last administered on at 14:55; Start 02/01/18 at 13:32; Stop 02/01/18 at 14:32; Status DC Vancomycin HCl 500 mg/Sodium Chloride 100 ml @ 100 mls/hr [id number] IV Last administered on 02/02/18at 16:15; Start 02/02/18 at 16:00; Stop 02/04/18 at 12: 02; Status DC Sodium Chloride 1,000 ml @ 1,000 mls/hr Q1H PRN IV hypotension; Start 02/02/18 at 09:39; Stop 02/02/18 at 15:38; Status DC Albumin Human 200 ml @ 200 mls/hr 1X PRN PRN IV Hypotension; Start 02/02/18 at 09:45; Stop 02/02/18 at 15:44; Status DC Sodium Chloride 1,000 ml @ 400 mls/hr Q2H30M PRN IV PATENCY; Start 02/02/18 at 09:39; Stop 02/02/18 at 21:38; Status DC Info (PHARMACY MONITORING -- do not chart) 1 each PRN DAILY PRN MC SEE COMMENTS ; Start 02/02/18 at 09:45; Stop 02/04/18 at 07:28; Status DC Info (PHARMACY MONITORING -- do not chart) 1 each PRN DAILY PRN MC SEE COMMENTS ; Start 02/02/18 at 09:45; Status UNV Prochlorperazine Edisylate (Compazine) 10 mg PRN Q6HRS PRN IV NAUSEA/VOMITING 2ND CHOICE Last administered on 02/10/18at 10:07; Start 02/02/18 at 11:30 Vancomycin HCl (Vanco Per Pharmacy) 1 each PRN DAILY PRN MC SEE COMMENTS Last administered on 02/02/18at 13:57; Start 02/02/18 at 14:00; Stop 02/04/18 at 12: 02; Status DC Famotidine (Pepcid Vial) 20 mg DAILY IVP Last administered on 02/08/18at 09:00 ; Start 02/03/18 at 10:00; Stop 02/08/18 at 11:45; Status DC Alteplase, Recombinant (Cathflo) 2 mg 1X ONCE INT CAT Last administered on 03/14at 02:56; Start 02/04/18 at 03:00; Stop 02/04/18 at 03:01; Status DC Sodium Chloride 1,000 ml @ 1,000 mls/hr Q1H PRN IV hypotension; Start at 07:15; Stop 02/04/18 at 13:14; Status DC Albumin Human 200 ml @ 200 mls/hr 1X PRN PRN IV Hypotension Last administered on 02/04/18at 11:26; Start 02/04/18 at 07:15; Stop 02/04/18 at 13:14; Status DC Acetaminophen (Tylenol) 500 mg 1X PRN PRN PO MILD PAIN / TEMP; Start 02/04/18 at 07:15; Stop 02/05/18 at 07:14; Status DC Diphenhydramine HCl (Benadryl) 25 mg 1X PRN PRN IV ITCHING; Start 02/04/18 at 07:15; Stop 02/05/18 at 07:14; Status DC Diphenhydramine HCl (Benadryl) 25 mg 1X PRN PRN IV ITCHING; Start 02/04/18 at 07:15; Stop 02/05/18 at 07:14; Status DC Sodium Chloride 1,000 ml @ 400 mls/hr Q2H30M PRN IV PATENCY; Start 02/04/18 at 07:15; Stop 02/04/18 at 19:14; Status DC Info (PHARMACY MONITORING -- do not chart) 1 each PRN DAILY PRN MC SEE COMMENTS ; Start 02/04/18 at 07:15; Status Cancel Lidocaine HCl (Xylocaine-Mpf 2% Vial) 2 ml STK-MED ONCE .ROUTE ; Start at 09:43; Stop 02/04/18 at 09:44; Status DC Docusate Sodium (Colace) 100 mg PRN DAILY PRN PO CONSTIPATION Last administered on 02/07/18at 22:13; Start 02/04/18 at 10:30 Ceftriaxone Sodium 2 gm/ Dextrose 100 ml @ 200 mls/hr Q24H IV Last administered on 02/04/18at 14:24; Start 02/04/18 at 13:00; Stop 02/05/18 at 11 :49; Status DC Morphine Sulfate (Morphine Sulfate) 1 mg PRN Q10MIN PRN IV SEVERE PAIN; Start 02/05/18 at 07:00; Stop 02/06/18 at 06:59; Status DC Ringer's Solution 1,000 ml @ 30 mls/hr Q24H IV ; Start 02/05/18 at 07:00; Stop 02/05/18 at 18:59; Status DC Lidocaine HCl (Xylocaine-Mpf 1% 2ml Vial) 2 ml PRN 1X PRN ID IV START; Start 02/05/18 at 07:00; Stop 02/06/18 at 06:59; Status DC Hydromorphone HCl (Dilaudid) 0.5 mg PRN Q10MIN PRN IV SEV PAIN, Second choice; Start 02/05/18 at 07:00; Stop 02/06/18 at 06:59; Status DC Prochlorperazine Edisylate (Compazine) 5 mg PACU PRN PRN IV NAUSEA, MRX1; Start 02/05/18 at 07:00; Stop 02/06/18 at 06:59; Status DC Lidocaine HCl (Xylocaine-Mpf 2% Vial) 2 ml STK-MED ONCE .ROUTE ; Start at 10:00; Stop 02/05/18 at 08:19; Status DC Sodium Chloride 1,000 ml @ 75 mls/hr [id number] IV Last administered on at 07:00; Start 02/05/18 at 10:30; Stop 02/08/18 at 15:20; Status DC Cefepime HCl 1 gm/ Dextrose 50 ml @ 100 mls/hr DAILY IV ; Start 02/06/18 at 09 :00; Status UNV Vancomycin HCl (Vanco Per Pharmacy) 1 each PRN DAILY PRN MC SEE COMMENTS Last administered on 02/08/18at 14:35; Start 02/05/18 at 12:00; Stop 02/09/18 at 09 :50; Status DC Cefepime HCl (Maxipime) 1 gm Q24H IVP Last administered on 02/08/18at 14:49; Start 02/05/18 at 12:00; Stop 02/09/18 at 09:35; Status DC Propofol 20 ml @ As Directed STK-MED ONCE IV ; Start 02/05/18 at 12:08; Stop 02/05/18 at 12:09; Status DC Lidocaine HCl (Xylocaine-Mpf 2% Vial) 2 ml STK-MED ONCE .ROUTE ; Start at 12:08; Stop 02/05/18 at 12:09; Status DC Vancomycin HCl 1.5 gm/Sodium Chloride 500 ml @ 250 mls/hr 1X ONCE IV Last administered on 02/05/18at 14:05; Start 02/05/18 at 14:00; Stop 02/05/18 at 15 :59; Status DC Vancomycin HCl (Vancomycin Random Level) 1 each 1X ONCE MC Last administered on 02/06/18at 05:00; Start 02/06/18 at 05:00; Stop 02/06/18 at 05:01; Status DC Sodium Chloride 1,000 ml @ 1,000 mls/hr Q1H PRN IV hypotension; Start at 08:12; Stop 02/06/18 at 14:11; Status DC Sodium Chloride 1,000 ml @ 400 mls/hr Q2H30M PRN IV PATENCY; Start 02/06/18 at 08:12; Stop 02/06/18 at 20:11; Status DC Info (PHARMACY MONITORING -- do not chart) 1 each PRN DAILY PRN MC SEE COMMENTS ; Start 02/06/18 at 08:15; Status UNV Info (PHARMACY MONITORING -- do not chart) 1 each PRN DAILY PRN MC SEE COMMENTS ; Start 02/06/18 at 08:15; Status UNV Lidocaine HCl (Xylocaine-Mpf 1% 2ml Vial) 2 ml 1X ONCE ID Last administered on 02/06/18at 08:30; Start 02/06/18 at 08:30; Stop 02/06/18 at 08:31; Status DC Lidocaine HCl (Xylocaine-Mpf 2% Vial) 2 ml STK-MED ONCE .ROUTE ; Start at 08:32; Stop 02/06/18 at 08:33; Status DC Diphenhydramine HCl (Benadryl) 50 mg 1X ONCE IVP Last administered on at 09:10; Start 02/06/18 at 09:00; Stop 02/06/18 at 09:02; Status DC Vancomycin HCl (Vancomycin Random Level) 1 each 1X ONCE MC Last administered on 02/08/18at 05:00; Start 02/08/18 at 05:00; Stop 02/08/18 at 05:01; Status DC Lidocaine HCl (Xylocaine-Mpf 2% Vial) 2 ml STK-MED ONCE .ROUTE ; Start at 09:00; Stop 02/08/18 at 07:54; Status DC Polyethylene Glycol (miraLAX PACKET) 17 gm DAILY PO Last administered on at 08:56; Start 02/08/18 at 12:30 Famotidine (Pepcid) 20 mg QHS PO Last administered on 02/09/18at 19:32; Start 02/08/18 at 21:00 Vancomycin HCl 500 mg/Sodium Chloride 100 ml @ 100 mls/hr QTUTHSA IV ; Start 02/09/18 at 16:00; Stop 02/09/18 at 16:00; Status DC Sodium Chloride 1,000 ml @ 1,000 mls/hr Q1H PRN IV hypotension; Start at 08:21; Stop 02/09/18 at 14:20; Status DC Sodium Chloride 1,000 ml @ 400 mls/hr Q2H30M PRN IV PATENCY; Start 02/09/18 at 08:21; Stop 02/09/18 at 20:20; Status DC Info (PHARMACY MONITORING -- do not chart) 1 each PRN DAILY PRN MC SEE COMMENTS ; Start 02/09/18 at 08:30; Status UNV Info (PHARMACY MONITORING -- do not chart) 1 each PRN DAILY PRN MC SEE COMMENTS ; Start 02/09/18 at 08:30 Diphenhydramine HCl (Benadryl) 50 mg 1X ONCE IVP Last administered on at 09:06; Start 02/09/18 at 08:30; Stop 02/09/18 at 08:31; Status DC Lidocaine HCl (Xylocaine-Mpf 2% Vial) 2 ml STK-MED ONCE .ROUTE ; Start at 08:40; Stop 02/09/18 at 08:41; Status DC Linezolid/Dextrose 300 ml @ 300 mls/hr Q12HR IV Last administered on at 09:46; Start 02/09/18 at 10:00 Gentamicin Sulfate 1 each PRN DAILY PRN MC SEE COMMENTS Last administered on at 14:56; Start 02/09/18 at 09:30 Metronidazole 100 ml @ 100 mls/hr Q8HRS IV Last administered on 02/10/18at 04: 59; Start 02/09/18 at 14:00 Gentamicin Sulfate 140 mg/ Dextrose 103.5 ml @ 207 mls/hr 1X ONCE IV Last administered on 02/09/18at 12:26; Start 02/09/18 at 12:00; Stop 02/09/18 at 12 :29; Status DC Lubiprostone (Amitiza) 8 mcg BIDWMEALS PO Last administered on 02/10/18at 08:57 ; Start 02/09/18 at 17:00 Gentamicin Sulfate 1 each 1X ONCE MC ; Start 02/11/18 at 06:00; Stop at 06:01 Hydromorphone HCl (Dilaudid) 2 mg 1X ONCE IV ; Start 02/10/18 at 10:30; Stop 02/10/18 at 10:31; Status DC Active Scripts Active Percocet 10-325 Mg Tablet (Oxycodone/Acetaminophen) 1 Each Tablet 1 Tab PO Q4HRS Brilinta (Ticagrelor) 90 Mg Tablet 90 Mg PO BID 30 Days Morphine Sulfate Er (Morphine Sulfate) 15 Mg Tablet.er 15 Mg PO BID Reported Brilinta (Ticagrelor) 90 Mg Tablet 90 Mg PO BID Lidocaine 1 Each Adh..patch 1 Each TP PRN DAILY PRN Calcitriol 0.25 Mcg Capsule 1 Cap PO DAILY Tegretol (Carbamazepine) 200 Mg Tablet 1 Tab PO BID Tramadol Hcl 50 Mg Tablet 50 Mg PO Q4HRS PRN Lantus Solostar (Insulin Glargine,Hum.rec.anlog) 100 Unit/1 Ml Insuln.pen 22 Unit SQ QHS Diflucan (Fluconazole) 100 Mg Tablet 100 Mg PO PRN Carvedilol 3.125 Mg Tablet 12.5 Mg PO BID Erythromycin (Erythromycin Base) 250 Mg Capsule.dr 250 Mg PO BID Cardizem Cd (Diltiazem Hcl) 180 Mg Cap.er.24h 120 Mg PO DAILY Amiodarone Hcl 200 Mg Tablet 1 Tab PO DAILY Nystatin 15 Gm Powder 1 Susanna TP PRN BID PRN Proventil Hfa Inhaler (Albuterol Sulfate) 6.7 Gm Hfa.aer.ad 2 Puff IH BID PRN Zofran (Ondansetron Hcl) 4 Mg Tablet 4 Mg PO Q6-8HRS PRN Nephro-Shabbir Tablet (Folic Acid/Vitamin B Comp W-C) 0.8 Mg Tablet 1 Tab PO DAILY Tricor (Fenofibrate Nanocrystallized) 145 Mg Tablet 1 Tab PO HS Lipitor (Atorvastatin Calcium) 80 Mg Tablet 80 Mg PO HS Niacin 500 Mg Tablet 500 Mg PO HS Novolog (Insulin Aspart) 100 Unit/1 Ml Cartridge 0 SQ TIDAC sliding scale Aspirin 325 Mg Tablet 325 Mg PO DAILY Furosemide 80 Mg Tablet 80 Mg PO BID Docusate Sodium 100 Mg Capsule 1 Cap PO PRN PRN Nitrostat (Nitroglycerin) 0.4 Mg Tab.subl 0.4 Mg SL PRN Q5MIN PRN Take as needed for chest pain Vitals/I & O Vital Sign - Last 24 Hours 02/09/18 02/09/18 02/09/18 02/09/18 12:39 12:40 12:43 12:58 Pulse 83 83 83 Resp 18 B/P (MAP) 137/49 137/49 137/49 O2 Delivery Room Air 02/09/18 02/09/18 02/09/18 02/09/18 15:30 16:58 17:34 19:00 Temp 99.3 97.9 99.3 97.9 Pulse 76 76 76 Resp 18 18 18 B/P (MAP) 119/47 (71) 119/47 139/43 (75) Pulse Ox 95 99 O2 Delivery Room Air Nasal Cannula O2 Flow Rate 2.0 02/09/18 02/09/18 02/09/18 02/09/18 19:31 19:33 20:00 23:00 Temp 99.3 99.3 Pulse 72 Resp 16 B/P (MAP) 142/50 (80) Pulse Ox 99 O2 Delivery Room Air Room Air Room Air Nasal Cannula O2 Flow Rate 2.0 02/09/18 02/09/18 02/09/18 02/10/18 23:01 23:04 23:31 00:04 O2 Delivery Room Air Room Air Room Air Room Air 02/10/18 02/10/18 02/10/18 02/10/18 03:22 04:58 05:28 07:00 Temp 98.4 98.0 98.4 98.0 Pulse 69 62 Resp 18 18 B/P (MAP) 124/50 (74) 105/43 (63) Pulse Ox 99 99 O2 Delivery Room Air Room Air Room Air 4L 02/10/18 02/10/18 02/10/18 02/10/18 08:56 09:00 10:06 11:00 Temp 98.0 98.0 Pulse 62 69 Resp 18 B/P (MAP) 105/43 129/49 (75) Pulse Ox 99 O2 Delivery Room Air Room Air 4l Intake and Output 02/09/18 02/09/18 02/10/18 15:00 23:00 07:00 Intake Total 50 ml 100 ml Output Total 0 ml 450 ml Balance 50 ml -350 ml QUIN BARRY MD Feb 10, 2018 12:20
[2018-02-10] MEDS: GENTAMICIN PER PHARMACY. MC PRN (14:58)
[2018-02-10 15:00] VITALS: BP 135/48
--- NOTE | 2018-02-10 15:13 | PDOC ---
PROGRESS NOTES Assessment Assessment Bilateral vision decrease x 2 weeks, worse x 4 days before admission. Diabetic retinal disease. Renal failure. DM x 30 years. CAD, s/p CABG. Anemia. Left BKA. Wounds. Right fem-pop bypass. RECOMMENDATIONS/PLAN: Continue ASA daily. Continue Lipitor HS. Control hyperglycemia. Treat medical diseases. See Ophthalmology. Past Medical History Cardiovascular: AFib, CAD, CHF, HTN, [place], Hyperlipidemia, Other (heart murmur, peripheral vascular disease, deep venous thrombosis) Pulmonary: Asthma, Bronchitis, COPD, Pneumonia, Other (sleep apnea) CENTRAL NERVOUS SYSTEM: Peripheral neuropathy GI: Irritable bowel disease, Peptic Ulcer disease, Other (C. difficile) Psych: Anxiety, Depression Musculoskeletal: low back pain (and neck pain), Osteoarthritis Rheumatologic: Fibromyalgia Renal/: Chronic renal failure (dialysis) Endocrine: Diabetes Dermatology: Other (various wounds, MRSA, VRE) Past Surgical History CABG, Cataract Removal, Hysterectomy, Other (Arnold-Chiari malformation repair, left below the knee application, right femoropopliteal bypass, arteriovenous shunt, coronary stent, right second and third toes amputations, arthroscopic knee surgery) Family History Cancer, CAD, DM Social History , quit smoking, rare alcohol, disabled, gets around in a wheelchair ALLERGY: Reviewed. MEDICATIONS: Refer to MAR REVIEW OF SYSTEMS: Constitutional: No malnutrition, weight loss, cachexia. Head: No traumatic brain or head injury. Skin: No edema, or rash. Ear: No infection. Eyes: Vision loss. Nose: No bleeding or purulent discharges. Hearing: No hearing decrease. Neck: No injury. Breast: No history of cancer, masses, or discharges. Cardiac: CAD, s/p CABG, HLD Pulmonary: No COPD.. GI: No GI Ulcer, GI bleeding. Urinary/genital: Renal failure. Endocrine: Diabetes Mellitus. Skeletomuscular: No muscular atrophy, deformity. Neurological: see HP. Psychiatric: Denies drug use/abuse. Otherwise, not [id number] review of systems. PHYSICAL EXAMINATION: General appearance in no acute distress. HEENT: Normocephalic and nontraumatic. Eyes, nose, ears, and throat are unremarkable. Neck is supple. No lymphadenopathy. No Crepitus. Cardiovascular: S1, S2, regular rate and rhythm. Pulmonary: Clear to auscultation bilaterally. Abdomen: Bowel sounds are positive. Abdomen is soft, nontender, and nondistended. Extremities: No rash, lesions. No restriction of range of motion NEUROLOGICAL EXAMINATION: Awake. Oriented to time, place and person. PERRL. EOMI. Can see items within 2 feet. CN: no focal findings. Muscle tone: within normal. Muscle strength: 4+ DTR: 2- UE and right LE. Plantar reflex: Neutral response on right side. Left BKA. Gait: Unable to walk. Sensory exam: no abnormal findings. No acute cerebellar signs elicited. F-T-N test fine. Objective Objective Vital Signs Date Time Temp Pulse Resp B/P (MAP) Pulse Ox O2 Delivery O2 Flow Rate FiO2 02/10/18 14:33 Room Air 02/10/18 11:00 98.0 69 18 129/49 (75) 99 98.0 02/09/18 23:00 2.0 Intake and Output 02/10/18 07:00 Intake Total 150 ml Output Total 450 ml Balance -300 ml Intake Oral 150 ml Output Urine Total 450 ml Vitals Signs Vitals VS - Last 72 Hours, by Label Date Time Temp Pulse Resp B/P (MAP) Pulse Ox O2 Delivery O2 Flow Rate FiO2 02/10/18 14:33 Room Air 02/10/18 12:56 Room Air 02/10/18 11:00 98.0 69 18 129/49 (75) 99 4l 98.0 02/10/18 10:46 Room Air 02/10/18 10:06 Room Air 02/10/18 09:00 62 105/43 02/10/18 08:56 Room Air 02/10/18 08:00 69 129/49 02/10/18 07:00 98.0 62 18 105/43 (63) 99 4L 98.0 02/10/18 04:58 Room Air 02/10/18 03:22 98.4 69 18 124/50 (74) 99 Room Air 98.4 02/10/18 00:04 Room Air 02/09/18 23:04 Room Air 02/09/18 23:01 Room Air 02/09/18 23:00 99.3 72 16 142/50 (80) 99 Nasal Cannula 2.0 99.3 02/09/18 20:00 Room Air 02/09/18 19:33 Room Air 02/09/18 19:31 Room Air 02/09/18 19:00 97.9 76 18 139/43 (75) 99 Nasal Cannula 2.0 97.9 02/09/18 17:34 76 119/47 02/09/18 16:58 18 02/09/18 15:30 99.3 76 18 119/47 (71) 95 Room Air 99.3 02/09/18 12:58 18 Room Air 02/09/18 12:43 83 137/49 02/09/18 12:40 83 137/49 02/09/18 12:39 83 137/49 02/09/18 12:00 16 02/09/18 08:22 18 Room Air 02/09/18 08:00 Room Air 02/09/18 07:00 98.1 73 18 120/56 (77) 98 Room Air 98.1 Laboratory Laboratory Laboratory Tests Test 02/09/18 16:42 02/09/18 21:17 02/10/18 05:00 02/10/18 07:11 Glucose (Fingerstick) 107 mg/dL (70-99) 146 mg/dL (70-99) 116 mg/dL (70-99) White Blood Count 14.6 x10^3/uL (4.0-11.0) Red Blood Count 2.45 x10^6/uL (3.50-5.40) Hemoglobin 7.7 g/dL (12.0-15.5) Hematocrit 23.2 % (36.0-47.0) Mean Corpuscular Volume 95 fL (79-100) Mean Corpuscular Hemoglobin 32 pg (25-35) Mean Corpuscular Hemoglobin Concent 33 g/dL (31-37) Red Cell Distribution Width 17.6 % (11.5-14.5) Platelet Count 368 x10^3/uL (140-400) Neutrophils (%) (Auto) 84 % (31-73) Lymphocytes (%) (Auto) 5 % (24-48) Monocytes (%) (Auto) 10 % (0-9) Eosinophils (%) (Auto) 1 % (0-3) Basophils (%) (Auto) 1 % (0-3) Neutrophils # (Auto) 12.2 x10^3uL (1.8-7.7) Lymphocytes # (Auto) 0.7 x10^3/uL (1.0-4.8) Monocytes # (Auto) 1.4 x10^3/uL (0.0-1.1) Eosinophils # (Auto) 0.1 x10^3/uL (0.0-0.7) Basophils # (Auto) 0.1 x10^3/uL (0.0-0.2) Sodium Level 140 mmol/L (136-145) Potassium Level 3.8 mmol/L (3.5-5.1) Chloride Level 101 mmol/L (98-107) Carbon Dioxide Level 30 mmol/L (21-32) Anion Gap 9 (6-14) Blood Urea Nitrogen 17 mg/dL (7-20) Creatinine 3.8 mg/dL (0.6-1.0) Estimated GFR (Cockcroft-Gault) 12.5 BUN/Creatinine Ratio 4 (6-20) Glucose Level 117 mg/dL (70-99) Calcium Level 8.3 mg/dL (8.5-10.1) Total Bilirubin 0.5 mg/dL (0.2-1.0) Aspartate Amino Transf (AST/SGOT) 14 U/L (15-37) Alanine Aminotransferase (ALT/SGPT) 14 U/L (14-59) Alkaline Phosphatase 86 U/L (46-116) Total Protein 5.0 g/dL (6.4-8.2) Albumin 1.9 g/dL (3.4-5.0) Albumin/Globulin Ratio 0.6 (1.0-1.7) Test 02/10/18 11:23 Glucose (Fingerstick) 249 mg/dL (70-99) Microbiology 02/06/18 Blood Culture - Preliminary, Resulted NO GROWTH AFTER 4 DAYS 01/27/18 Anaerobic/Aerobic Culture - Final, Complete 01/27/18 Anaerobic Culture Result 1 (ROSALIND) - Final, Complete 01/27/18 Aerobic Culture - Final, Complete 01/27/18 Aerobic Culture Result 1 (ROSALIND) - Final, Complete 01/27/18 Antimicrobic Susceptibility - Final, Complete 01/27/18 Gram Stain - Final, Complete 01/27/18 Gram Stain Result 1 (ROSALIND) - Final, Complete 01/27/18 Gram Stain Result 2 (ROSALIND) - Final, Complete Medication Medications Current Medications Gentamicin Sulfate 1 each 1X ONCE MC ; Start 10/18/18 at 06:00; Stop at 06:01 Hydromorphone HCl (Dilaudid) 2 mg 1X ONCE IV ; Start 02/10/18 at 10:30; Stop 02/10/18 at 10:31; Status DC Lubiprostone (Amitiza) 8 mcg BIDWMEALS PO Last administered on 02/10/18at 08:57 ; Start 02/09/18 at 17:00 Vancomycin HCl 500 mg/Sodium Chloride 100 ml @ 100 mls/hr QTUTHSA IV ; Start 02/09/18 at 16:00; Stop 02/09/18 at 16:00; Status DC Comment Review of Relevant I have reviewed the following items bert (where applicable) has been applied. KRAIG HUNT MD Feb 10, 2018 15:12
--- NOTE | 2018-02-10 15:25 | PDOC ---
SUBJECTIVE ROS States Noticed decreased in Vision approx 4-5 days back No other complaints OBJECTIVE Vital Signs Vital Signs Date Time Temp Pulse Resp B/P (MAP) Pulse Ox O2 Delivery O2 Flow Rate FiO2 02/10/18 14:33 Room Air 02/10/18 11:00 98.0 69 18 129/49 (75) 99 98.0 02/09/18 23:00 2.0 I & 0 Intake and Output 02/10/18 07:00 Intake Total 150 ml Output Total 450 ml Balance -300 ml Intake Oral 150 ml Output Urine Total 450 ml PHYSICAL EXAM Physical Exam General: No acute distress HEENT:OM moist Lungs: Clear to auscultation, Non labored Heart: Regular rate, Normal S1, Normal S2 Abdomen: Soft, No tenderness, PD catheter + Extremities: Lt BKA, Rt S/P Debridement and Muscle flap Changes of CVI+ RLE less swollen and red,Incision well-approx w/ alberto. Wound vac in place AV Shunt Rt arm SKIN: without rash Neuro: Grossly Normal Gu- no hartley DIAGNOSIS/ASSESSMENT Assessment & Plan ESRD -On PD at home Was switched to PD from HD On HD while inpatient , go back to PD when Home No Indication for HD today, Tomorrow as per her Schedule Right femoral surgical site infection- s/p operative debridement with muscle flap. As per vascular and ID Anemia- Stable DM- as per primary Decreased Vision- neuro evaluated , recommend Ophthal fu DW Pt COMMENT/RELEVANT DATA Meds Current Medications Medications (Trade) Dose Ordered Sig/Martin Start Time Stop Time Status Last Admin Dose Admin Acetaminophen (Tylenol) 500 mg 1X PRN PRN 02/04/18 07:15 02/05/18 07:14 DC Albumin Human 200 ml @ 200 mls/hr 1X PRN PRN 02/04/18 07:15 02/04/18 13:14 DC 02/04/18 11:26 200 MLS/HR Albuterol Sulfate (Ventolin Neb Soln) 2.5 mg PRN BID PRN 01/27/18 12:30 01/27/18 21:59 2.5 MG Alteplase, Recombinant (Cathflo) 2 mg 1X ONCE 02/04/18 03:00 02/04/18 03:01 DC 02/04/18 02:56 2 MG Amiodarone HCl (Cordarone) 200 mg DAILY 01/27/18 12:30 02/10/18 09:00 200 MG Aspirin (Anthony Aspirin) 325 mg DAILY 01/27/18 12:30 01/28/18 14:26 DC 01/28/18 09:13 325 MG Aspirin (Ecotrin) 81 mg DAILYWBKFT 01/29/18 08:00 02/10/18 08:57 81 MG Atorvastatin Calcium (Lipitor) 80 mg QHS 01/27/18 21:00 02/09/18 19:31 80 MG Bacitracin (Bacitracin) 50,000 unit STK-MED ONCE 02/01/18 13:32 02/01/18 14:32 DC 02/01/18 14:55 50,000 UNIT Bacitracin 16171 unit/Sodium Chloride 3,000 ml @ 0 mls/hr 1X ONCE 01/27/18 13:15 01/27/18 13:16 Cancel Calcitriol (Rocaltrol) 0.25 mcg DAILY 01/27/18 12:30 02/10/18 08:57 0.25 MCG Carbamazepine (TEGretol) 200 mg BID 01/27/18 12:30 02/10/18 08:57 200 MG Carvedilol (Coreg) 12.5 mg BIDWMEALS 01/27/18 12:30 02/09/18 17:34 12.5 MG Cefazolin Sodium 1 gm/Sodium Chloride 500 ml @ 500 mls/hr 1X ONCE 02/01/18 06:00 02/01/18 06:59 DC Cefepime HCl (Maxipime) 1 gm Q24H 02/05/18 12:00 02/09/18 09:35 DC 02/08/18 14:49 1 GM Cefepime HCl 1 gm/ Dextrose 50 ml @ 100 mls/hr DAILY 02/06/18 09:00 UNV Ceftriaxone Sodium 2 gm/ Dextrose 100 ml @ 200 mls/hr Q24H 02/04/18 13:00 02/05/18 11:49 DC 02/04/18 14:24 200 MLS/HR Cellulose (Surgicel Fibrillar 1x2) 1 each STK-MED ONCE 02/01/18 12:05 02/01/18 13:06 DC Clopidogrel Bisulfate (Plavix) 75 mg DAILYWBKFT 01/28/18 08:00 01/28/18 14:28 DC 01/28/18 09:13 75 MG Darbepoetin Mauricio (Aranesp) 60 mcg WEEKLYHS 02/01/18 21:00 02/08/18 20:41 60 MCG Dexamethasone Sodium Phosphate (Decadron) 20 mg STK-MED ONCE 02/01/18 14:25 02/01/18 14:26 DC Dextrose (Dextrose 50%-Water Syringe) 12.5 gm PRN Q15MIN PRN 01/28/18 14:45 02/05/18 08:50 12.5 GM Diltiazem HCl (Cardizem 24hr Cd) 120 mg DAILY 01/27/18 12:30 02/09/18 12:43 120 MG Diphenhydramine HCl (Benadryl) 50 mg 1X ONCE 02/09/18 08:30 02/09/18 08:31 DC 02/09/18 09:06 50 MG Docusate Sodium (Colace) 100 mg PRN DAILY PRN 02/04/18 10:30 02/07/18 22:13 100 MG Erythromycin (E-Mycin) 250 mg BID 01/27/18 21:00 02/10/18 08:56 250 MG Famotidine (Pepcid Vial) 20 mg DAILY 02/03/18 10:00 02/08/18 11:45 DC 02/08/18 09:00 20 MG Famotidine (Pepcid) 20 mg QHS 02/08/18 21:00 02/09/18 19:32 20 MG Fenofibrate (Lofibra) 134 mg QHS 01/27/18 21:00 02/09/18 19:31 134 MG Fentanyl Citrate (Fentanyl 2ml Vial) 50 mcg PRN Q5MIN PRN 01/27/18 10:45 01/27/18 18:00 DC Furosemide (Lasix) 80 mg BID92 01/27/18 12:30 02/10/18 14:38 80 MG Gentamicin Sulfate 140 mg/ Dextrose 103.5 ml @ 207 mls/hr 1X ONCE 02/09/18 12:00 02/09/18 12:29 DC 02/09/18 12:26 207 MLS/HR Gentamicin Sulfate 235 mg/ Dextrose 105.875 ml @ 105.875 mls/hr 1X ONCE 01/27/18 16:00 01/27/18 16:59 DC 01/27/18 19:56 105.875 MLS/HR Gentamicin Sulfate 1 each 1X ONCE 02/11/18 06:00 02/11/18 06:01 Heparin Sodium (Porcine) (Hep Lock Adult) 500 unit 1X ONCE 01/29/18 14:00 01/29/18 14:17 DC 01/29/18 14:04 500 UNIT Hydralazine HCl (Apresoline) 10 mg PRN TID PRN 01/28/18 14:45 Hydromorphone HCl (Dilaudid) 2 mg 1X ONCE 02/10/18 10:30 02/10/18 10:31 DC Influenza Virus Vaccine (Afluria Trivalent 4635-4551 Syringe) 0.5 ml ONCE ONCE 01/27/18 09:00 01/27/18 09:01 DC 01/27/18 09:00 0.5 ML Info (PHARMACY MONITORING -- do not chart) 1 each PRN DAILY PRN 02/09/18 08:30 Insulin Glargine (Lantus) 22 units QHS 01/27/18 21:00 02/06/18 22:21 8 UNITS Insulin Human Lispro (HumaLOG) 0-5 UNITS TIDWMEALS 01/28/18 17:00 02/07/18 09:07 2 UNITS Lactobacillus Rhamnosus (Culturelle) 1 cap BID 01/27/18 21:00 02/10/18 08:59 1 CAP Lidocaine (Lidoderm) 1 patch PRN DAILY PRN 01/27/18 09:00 Lidocaine HCl (Lidocaine 1% 50ml Vial) 50 ml 1X ONCE 01/30/18 15:45 01/30/18 15:46 DC Lidocaine HCl (Xylocaine 1% Pf 30ml Vial) 30 ml 1X ONCE 02/01/18 13:15 02/01/18 13:18 DC Lidocaine HCl (Xylocaine-Mpf 1% 2ml Vial) 2 ml 1X ONCE 02/06/18 08:30 02/06/18 08:31 DC 02/06/18 08:30 2 ML Lidocaine HCl (Xylocaine-Mpf 2% Vial) 2 ml STK-MED ONCE 02/09/18 09:00 02/10/18 13:19 DC Lidocaine/ Epinephrine (LIDOCAINE 1%-EPI 1:100,000 Multi-Dose) 8 ml 1X ONCE 01/29/18 14:00 01/29/18 14:17 DC 01/29/18 14:01 8 ML Linezolid/Dextrose 300 ml @ 300 mls/hr Q12HR 02/09/18 10:00 02/10/18 09:46 300 MLS/HR Lubiprostone (Amitiza) 8 mcg BIDWMEALS 02/09/18 17:00 02/10/18 08:57 8 MCG Metronidazole 100 ml @ 100 mls/hr Q8HRS 02/09/18 14:00 02/10/18 14:14 100 MLS/HR Midazolam HCl (Versed) 2 mg STK-MED ONCE 02/01/18 14:25 02/01/18 14:26 DC Miscellaneous (Lidoderm Patch Removal) 1 ea QHS 01/27/18 21:00 02/05/18 20:57 1 EA Morphine Sulfate (Morphine Sulfate) 1 mg PRN Q10MIN PRN 02/05/18 07:00 02/06/18 06:59 DC Morphine Sulfate (Ms Contin) 15 mg BID 01/27/18 12:30 02/10/18 08:56 15 MG Niacin (Slo-Niacin) 500 mg QHS 01/27/18 21:00 02/09/18 19:31 500 MG Nitroglycerin (Nitrostat) 0.4 mg PRN Q5MIN PRN 01/27/18 12:00 Non-Formulary Medication (Albuterol Sulfate (Proventil Hfa Inhaler)) 2 puff BID PRN 01/27/18 12:00 UNV Non-Formulary Medication (Fluconazole (Diflucan)) 100 mg PRN 01/27/18 12:00 UNV Nystatin (Nystop) 1 erich PRN BID PRN 01/27/18 12:00 Ondansetron HCl (Zofran Odt) 4 mg PRN Q6HRS PRN 01/27/18 12:15 02/07/18 16:53 4 MG Ondansetron HCl (Zofran) 4 mg STK-MED ONCE 02/01/18 14:25 02/01/18 14:26 DC Oxycodone/ Acetaminophen (Percocet 10/325) 1 tab PRN Q4HRS PRN 01/29/18 07:45 02/09/18 23:04 1 TAB Pharmacy Consult (C.diff Med Screen By Rx) 1 each 1X ONCE 01/27/18 01:00 01/27/18 01:01 Cancel Polyethylene Glycol (miraLAX PACKET) 17 gm DAILY 02/08/18 12:30 02/10/18 08:56 17 GM Prochlorperazine Edisylate (Compazine) 5 mg PACU PRN PRN 02/05/18 07:00 02/06/18 06:59 DC Promethazine HCl (Phenergan Im) 12.5 mg 1X ONCE 01/29/18 12:45 01/29/18 12:46 DC Promethazine HCl (Phenergan Supp) 12.5 mg 1X ONCE 01/29/18 12:15 01/29/18 12:36 DC Propofol 20 ml @ As Directed STK-MED ONCE 02/05/18 12:08 02/05/18 12:09 DC Ringer's Solution 1,000 ml @ 30 mls/hr Q24H 02/05/18 07:00 02/05/18 18:59 DC Sevoflurane (Ultane) 30 ml STK-MED ONCE 01/27/18 13:11 01/27/18 13:12 DC Sodium Chloride 1,000 ml @ 400 mls/hr Q2H30M PRN 02/09/18 08:21 02/09/18 20:20 DC Sodium Chloride (Normal Saline Flush) 10 ml 1X PRN PRN 01/30/18 13:15 01/31/18 13:14 DC Ticagrelor (Brilinta) 90 mg BID 01/28/18 21:00 02/10/18 08:57 90 MG Tramadol HCl (Ultram) 50 mg PRN Q4HRS PRN 01/27/18 12:00 02/08/18 04:36 50 MG Vancomycin HCl (Vanco Per Pharmacy) 1 each PRN DAILY PRN 02/05/18 12:00 02/09/18 09:50 DC 02/08/18 14:35 1 EACH Vancomycin HCl (Vancomycin Random Level) 1 each 1X ONCE 02/08/18 05:00 02/08/18 05:01 DC 02/08/18 05:00 1 EACH Vancomycin HCl 1.5 gm/Sodium Chloride 500 ml @ 250 mls/hr 1X ONCE 02/05/18 14:00 02/05/18 15:59 DC 02/05/18 14:05 250 MLS/HR Vancomycin HCl 1.75 gm/Sodium Chloride 500 ml @ 250 mls/hr 1X ONCE 01/26/18 23:00 01/27/18 00:59 DC 01/26/18 23:53 250 MLS/HR Vancomycin HCl 500 mg/Sodium Chloride 100 ml @ 100 mls/hr QTUTHSA 02/09/18 16:00 02/09/18 16:00 DC Vitamin B Complex/ Vitamin C (Melly-Shabbir) 1 tab DAILY 01/27/18 12:30 02/10/18 08:57 1 TAB Lab Laboratory Tests Test 02/09/18 16:42 02/09/18 21:17 02/10/18 05:00 02/10/18 07:11 Glucose (Fingerstick) 107 mg/dL (70-99) 146 mg/dL (70-99) 116 mg/dL (70-99) White Blood Count 14.6 x10^3/uL (4.0-11.0) Red Blood Count 2.45 x10^6/uL (3.50-5.40) Hemoglobin 7.7 g/dL (12.0-15.5) Hematocrit 23.2 % (36.0-47.0) Mean Corpuscular Volume 95 fL (79-100) Mean Corpuscular Hemoglobin 32 pg (25-35) Mean Corpuscular Hemoglobin Concent 33 g/dL (31-37) Red Cell Distribution Width 17.6 % (11.5-14.5) Platelet Count 368 x10^3/uL (140-400) Neutrophils (%) (Auto) 84 % (31-73) Lymphocytes (%) (Auto) 5 % (24-48) Monocytes (%) (Auto) 10 % (0-9) Eosinophils (%) (Auto) 1 % (0-3) Basophils (%) (Auto) 1 % (0-3) Neutrophils # (Auto) 12.2 x10^3uL (1.8-7.7) Lymphocytes # (Auto) 0.7 x10^3/uL (1.0-4.8) Monocytes # (Auto) 1.4 x10^3/uL (0.0-1.1) Eosinophils # (Auto) 0.1 x10^3/uL (0.0-0.7) Basophils # (Auto) 0.1 x10^3/uL (0.0-0.2) Sodium Level 140 mmol/L (136-145) Potassium Level 3.8 mmol/L (3.5-5.1) Chloride Level 101 mmol/L (98-107) Carbon Dioxide Level 30 mmol/L (21-32) Anion Gap 9 (6-14) Blood Urea Nitrogen 17 mg/dL (7-20) Creatinine 3.8 mg/dL (0.6-1.0) Estimated GFR (Cockcroft-Gault) 12.5 BUN/Creatinine Ratio 4 (6-20) Glucose Level 117 mg/dL (70-99) Calcium Level 8.3 mg/dL (8.5-10.1) Total Bilirubin 0.5 mg/dL (0.2-1.0) Aspartate Amino Transf (AST/SGOT) 14 U/L (15-37) Alanine Aminotransferase (ALT/SGPT) 14 U/L (14-59) Alkaline Phosphatase 86 U/L (46-116) Total Protein 5.0 g/dL (6.4-8.2) Albumin 1.9 g/dL (3.4-5.0) Albumin/Globulin Ratio 0.6 (1.0-1.7) Test 02/10/18 11:23 Glucose (Fingerstick) 249 mg/dL (70-99) Results All relevant outside records, renal labs, imaging studies, telemetry/EKG's were reviewed. HEMANT SCHAEFER MD Feb 10, 2018 15:25
[2018-02-10] MEDS: oxyCODONE/APAP 10/325 1 TAB TABLET PO PRN (17:24)
[2018-02-10 19:15] VITALS: BP 130/54
[2018-02-10] MEDS: ATORVASTATIN CALCIUM 40 MG TABLET. PO SCH (20:14)
[2018-02-10] MEDS: NIACIN ER 500 MG TABLET.ER PO SCH (20:14)
[2018-02-10] MEDS: FENOFIBRATE,MICRONIZED 134 MG CAPSULE PO SCH (20:15)
[2018-02-10] MEDS: FAMOTIDINE 20 MG TABLET. PO SCH (20:15)
[2018-02-10] MEDS: PATCH REMOVAL. MC SCH (20:18)
[2018-02-10] MEDS: INSULIN GLARGINE 300 UNITS/3 ML INSULN.PEN. SQ SCH (21:00)
[2018-02-10] MEDS ORDERED: ALTEPLASE 2 MG VIAL INT CAT ONE (21:30)
[2018-02-10 23:16] VITALS: BP 123/51
[2018-02-11] MEDS: HYDROmorphone 2 MG/ML VIAL IV PRN ×3 (05:44→23:27)
[2018-02-11] MEDS ORDERED: silver sulfADIAZINE 1% CREAM 25GM TUBE. TP ONE (05:56)
[2018-02-11] MEDS ORDERED: LIDOCAINE 1% PF 30 ML VIAL. ONE (05:57)
[2018-02-11] MEDS ORDERED: GENTAMICIN RANDOM LEVEL. MC ONE (06:00)
[2018-02-11 06:08] LABS: BASO # 0.1 x10^3/uL (0.0-0.2); BASO % 0 % (0-3); EOS % 0 % (0-3); HEMATOCRIT 23.5 % (36.0-47.0); HEMOGLOBIN 8.1 g/dL (12.0-15.5); LYMPH # 0.6 x10^3/uL (1.0-4.8); LYMPH % 4 % (24-48); MEAN CORPUSCULAR HEMOGLOBIN 33 pg (25-35); MEAN CORPUSCULAR HGB CONC 34 g/dL (31-37); MEAN CORPUSCULAR VOLUME 95 fL (79-100); MONO % 7 % (0-9); NEUT # 12.3 x10^3uL (1.8-7.7); NEUT % 88 % (31-73); PLATELET COUNT 361 x10^3/uL (140-400); RED BLOOD COUNT 2.48 x10^6/uL (3.50-5.40); RED CELL DISTRIBUTION WIDTH 17.7 % (11.5-14.5)
[2018-02-11 06:26] LABS: ALBUMIN/GLOBULIN RATIO 0.6 (1.0-1.7); CALCIUM 8.4 mg/dL (8.5-10.1); CREATININE 4.7 mg/dL (0.6-1.0); GFR 9.8; POTASSIUM 3.7 mmol/L (3.5-5.1); TOTAL BILIRUBIN 0.5 mg/dL (0.2-1.0); TOTAL PROTEIN 5.1 g/dL (6.4-8.2)
[2018-02-11] MEDS ORDERED: PROCHLORPERAZINE 10 MG/2 ML VIAL. IV PRN (07:15)
[2018-02-11] MEDS ORDERED: ONDANSETRON PF 4 MG/2 ML VIAL. IV PRN (07:15)
[2018-02-11] MEDS ORDERED: LIDOCAINE 1% PF 2 ML VIAL. ID PRN (07:15)
[2018-02-11] MEDS ORDERED: fentaNYL PF VIAL 100 MCG/2 ML VIAL IV PRN ×2 (07:15)
[2018-02-11] MEDS ORDERED: IV RINGERS,LACTATED 1000ML 1,000 ML IV SCH (07:15)
[2018-02-11] MEDS ORDERED: HYDROmorphone 2 MG/ML VIAL IV PRN (07:15)
[2018-02-11] MEDS ORDERED: MORPHINE SULFATE 2 MG/ML VIAL. IV PRN (07:15)
[2018-02-11] MEDS ORDERED: LIDOCAINE 2% PF Vial for OR 5 ML VIAL. ONE (07:20)
[2018-02-11] MEDS ORDERED: PROPOFOL 20 ML IV ONE (07:20)
[2018-02-11] MEDS ORDERED: fentaNYL PF VIAL 100 MCG/2 ML VIAL ONE (07:20)
[2018-02-11] MEDS ORDERED: DEXAMETHASONE SOD PHOS 20 MG/5 ML VIAL. ONE (07:20)
[2018-02-11] MEDS ORDERED: ONDANSETRON PF 4 MG/2 ML VIAL. ONE (07:20)
[2018-02-11] MEDS ORDERED: FAMOTIDINE 20 MG/2 ML VIAL ONE (07:20)
[2018-02-11] MEDS ORDERED: MIDAZOLAM HCL/PF 2 MG/2 ML VIAL. ONE (07:21)
[2018-02-11] MEDS: IV NORMAL SALINE 1000ML BAG 1,000 ML IV SCH (07:33)
[2018-02-11] MEDS: INSULIN LISPRO 300 UNITS/3 ML INSULN.PEN. SQ SCH ×3 (08:00→17:00)
[2018-02-11] MEDS: CARVEDILOL 12.5 MG TABLET. PO SCH ×2 (08:00→17:59)
[2018-02-11] MEDS: LUBIPROSTONE 8 MCG CAPSULE PO SCH ×2 (08:00→17:59)
[2018-02-11] MEDS: ASPIRIN ENTERIC COATED 81 MG TABLET.DR. PO SCH (08:00)
[2018-02-11] MEDS ORDERED: ePHEDrine PF IN SALINE 50 MG/5 ML DISP.SYRIN IV ONE (08:22)
[2018-02-11] MEDS ORDERED: DESFLURANE 31 TO 60 MINUTES IH ONE (08:41)
--- NOTE | 2018-02-11 08:45 | PDOC ---
BRIEF OPERATIVE NOTE Date: Feb 11, 2018 Pre-Op Diagnosis Right groin wound s/p muscle flap Post-Op Diagnosis Same Procedure Performed Right groin wound debridement with wound vac placement Surgeon Felipe Middleton MD Polymerization Supervisor VENITA Zamora Anesthesia Type: General Blood Loss <5mL Specimens Obtained None Findings Wound measurements 32cm length x11cm width x2.5cm depth Complications None Operative Note See detailed op noted HONG OKEEFE Feb 11, 2018 08:45
[2018-02-11] MEDS: AMIODARONE HCL 200 MG TABLET. PO SCH (09:00)
[2018-02-11] MEDS: carBAMazepine 200 MG TABLET PO SCH ×2 (09:00→20:59)
[2018-02-11] MEDS: POLYETHYLENE GLYCOL 3350 17 GM PACKET. PO SCH (09:00)
[2018-02-11] MEDS: FUROSEMIDE 80 MG TABLET. PO SCH ×2 (09:00→17:59)
[2018-02-11] MEDS: MORPHINE ER 15 MG TABLET.ER PO SCH ×2 (09:00→20:58)
[2018-02-11] MEDS: FOLIC/VIT B COMP W-C (RENAL) TABLET. PO SCH (09:00)
[2018-02-11] MEDS: LACTOBACILLUS RHAMNOSUS GG 1 CAPSULE. PO SCH ×2 (09:00→20:58)
[2018-02-11] MEDS: ERYTHROMYCIN BASE 250 MG TABLET PO SCH ×2 (09:00→20:59)
[2018-02-11] MEDS: CALCITRIOL 0.25 MCG CAPSULE. PO SCH (09:00)
[2018-02-11] MEDS: TICAGRELOR 90 MG TABLET. PO SCH ×2 (09:00→21:04)
--- NOTE | 2018-02-11 09:37 | OP ---
DATE OF SURGERY: 02/11/2018 PREOPERATIVE DIAGNOSIS: Further necrosis of the skin edges right thigh wound. POSTOPERATIVE DIAGNOSIS: Further necrosis of the skin edges right thigh wound. PROCEDURE PERFORMED: Debridement of necrotic skin and subcutaneous tissue, right thigh. SURGEON: Felipe Middleton MD GARMENT MENDER: VENITA Zamora ANESTHETIC: General. DESCRIPTION OF PROCEDURE: After general anesthetic, prepping and draping, a knife was used to excise the necrotic skin edges and subcutaneous tissue, pretty much circumferentially, in her right thigh wound. She did have good bleeding along the edges where the debridement was done and this was controlled with the cautery. The wound was then profusely irrigated. [place] were removed from the rest of her lower leg. The wound care nurses then came in and applied a wound VAC to the right thigh wound. She left the operating room and minimal blood loss. FELIPE MIDDLETON MD DR: IRAIDA/guillermo JOB#: [id number] / [id number]
[2018-02-11] MEDS ORDERED: IV NORMAL SALINE 1000ML BAG 1,000 ML IV PRN ×2 (09:57)
[2018-02-11] MEDS ORDERED: LIDOCAINE 1% PF 2 ML VIAL. INJ ONE (10:00)
[2018-02-11] MEDS ORDERED: ALBUMIN HUMAN 25% 200 ML IV PRN (10:00)
[2018-02-11] MEDS ORDERED: DIALYSIS PATIENT. MC PRN ×2 (10:00)
--- NOTE | 2018-02-11 10:05 | PDOC ---
Infectious Disease Note Subjective Subjective No fever last 24 hours c/o N/V now 48 hours but some better + BM Right groin pain-stable No Rash/SOA/diarrhea Vital Sign Vital Signs Vital Signs Date Time Temp Pulse Resp B/P (MAP) Pulse Ox O2 Delivery O2 Flow Rate FiO2 02/11/18 09:19 97.4 62 16 119/55 Simple Mask 8 97.4 02/11/18 09:04 100 Physical Exam PHYSICAL EXAM GENERAL: Propped up in bed, looks better OC/Op- dry LUNGS: Clear. HEART: S1, S2 regular. ABDOMEN: Soft, NT, ND EXTREMITIES: Left BKA. RLE less swollen and red; + wrinkles. Incision well-approx w/ alberto. Wound very clean and granulating. Heel without wound NEUROLOGIC: More Alert and more responsive SKIN: without rash Tunnelled RIJ (01/29) clean Left chest line is clean Labs Lab Laboratory Tests Test 02/10/18 11:23 02/10/18 16:41 02/10/18 23:38 02/11/18 05:42 Glucose (Fingerstick) 249 mg/dL (70-99) 128 mg/dL (70-99) 125 mg/dL (70-99) White Blood Count 14.0 x10^3/uL (4.0-11.0) Red Blood Count 2.48 x10^6/uL (3.50-5.40) Hemoglobin 8.1 g/dL (12.0-15.5) Hematocrit 23.5 % (36.0-47.0) Mean Corpuscular Volume 95 fL (79-100) Mean Corpuscular Hemoglobin 33 pg (25-35) Mean Corpuscular Hemoglobin Concent 34 g/dL (31-37) Red Cell Distribution Width 17.7 % (11.5-14.5) Platelet Count 361 x10^3/uL (140-400) Neutrophils (%) (Auto) 88 % (31-73) Lymphocytes (%) (Auto) 4 % (24-48) Monocytes (%) (Auto) 7 % (0-9) Eosinophils (%) (Auto) 0 % (0-3) Basophils (%) (Auto) 0 % (0-3) Neutrophils # (Auto) 12.3 x10^3uL (1.8-7.7) Lymphocytes # (Auto) 0.6 x10^3/uL (1.0-4.8) Monocytes # (Auto) 1.0 x10^3/uL (0.0-1.1) Eosinophils # (Auto) 0.0 x10^3/uL (0.0-0.7) Basophils # (Auto) 0.1 x10^3/uL (0.0-0.2) Sodium Level 135 mmol/L (136-145) Potassium Level 3.7 mmol/L (3.5-5.1) Chloride Level 99 mmol/L (98-107) Carbon Dioxide Level 27 mmol/L (21-32) Anion Gap 9 (6-14) Blood Urea Nitrogen 21 mg/dL (7-20) Creatinine 4.7 mg/dL (0.6-1.0) Estimated GFR (Cockcroft-Gault) 9.8 BUN/Creatinine Ratio 4 (6-20) Glucose Level 124 mg/dL (70-99) Calcium Level 8.4 mg/dL (8.5-10.1) Total Bilirubin 0.5 mg/dL (0.2-1.0) Aspartate Amino Transf (AST/SGOT) 13 U/L (15-37) Alanine Aminotransferase (ALT/SGPT) 13 U/L (14-59) Alkaline Phosphatase 92 U/L (46-116) Total Protein 5.1 g/dL (6.4-8.2) Albumin 2.0 g/dL (3.4-5.0) Albumin/Globulin Ratio 0.6 (1.0-1.7) Random Gentamicin Level 3.6 mcg/mL Test 02/11/18 08:56 Glucose (Fingerstick) 107 mg/dL (70-99) Micro U/S IMPRESSION: 02/09 1. Distended hydropic gallbladder containing sludge. 2. Hepatomegaly. 3. Slightly dilated common bile duct for patient age. No obstructing lesion is seen sonographically. 4. 1.4 cm lobular lesion along the left renal cortex, stable compared to the prior CT. The differential includes a complex cyst as well as solid neoplasm. This can be better assessed with a renal protocol CT or MRI. Klebsiella pneumoniae 4+ ANTIMICROBIAL SUSCEPTIBILITY Final Comment S = Susceptible; I = Intermediate; R = Resistant P = Positive; N = Negative MICS are expressed in micrograms per mL Antibiotic RSLT#1 RSLT#2 RSLT#3 RSLT#4 Amoxicillin/Clavulanic Acid S<=2 Ampicillin R>=32 Cefepime S<=0.12 Ceftriaxone S<=0.25 Cefuroxime S =4 Ciprofloxacin S =1 Ertapenem S<=0.12 Gentamicin S<=1 Imipenem S<=0.25 Levofloxacin S =1 Meropenem S<=0.25 Piperacillin/Tazobactam S<=4 Tetracycline S<=1 CONTINUED ON NEXT PAGE RUN DATE: 01/30/18 PAGE 2 RUN TIME: 3062 [facility] [address] [place] [address] Edward Kent M.D., Seat Covers Trimmer SPEC: [id number] PATIENT: JAMAL BOSE [id number] ( Continued) Procedure Result ANTIMICROBIAL SUSCEPTIBILITY Final (continued) Tobramycin S<=1 Trimethoprim/Sulfa S<=20 01/26/18 Blood Culture - Preliminary, Resulted NO GROWTH AFTER 3 DAYS 01/27 ANAEROBIC RES 1 Preliminary No anaerobes recovered in 24 hours. AEROBIC RES 1 Preliminary Gram negative rods 01/26 AEROBIC RES 1 Preliminary Mixed site chinedu. GRAM STAIN RES 2 Final Many gram negative rods. GRAM STAIN RES 3 Final Gram positive cocci in pairs Objective Assessment Fever - better - blood cult 02/06 neg Leukocytosis ? reactive from GI bleed,- despite Vanc/Cefepime better with Zyvox/ gent/Flagyl Mild encephalopathy - ? med related Right leg surgery site infection s/p excisional debridement; muscle flap & wound VAC placement on 01/27. Klebsiella (R amp) - s/p repeat I and D on 02/01 - 01/26. gram stain: GPC and GNR -- mixed chinedu. PAD s/p leg bypass on 01/06 ESRD Multiple antibiotic allergies Amiodarone therapy h/o VRE, MRSA, c. diff Nausea and vomiting s/p EGD 02/05. non-erosive gastritis. some better but ? Abnormal Abd U/S - lipase normal Anemia s/p PRBC Plan Plan of Care DID NOT SEE OUT OF ROOM - WBC stable and AF Getting Wound i and D F/u HIDA scan D/c'd vanc and cefepime restarted 02/05 02/09 Began Zyvox with h/o VRE/add Gent/restart Flagyl 02/09 -Previously on Rocephin and Flagyl -s/p gent x 1 on 01/27 Optho eval - will need to be outpatient Probiotics BC from 02/05 NGTD Local wound care Supportive care LTAC soon but not today ALBERTO NAVA MD Feb 11, 2018 10:05
[2018-02-11] MEDS: GENTAMICIN PER PHARMACY. MC PRN (12:53)
--- NOTE | 2018-02-11 13:06 | PDOC ---
SUBJECTIVE ROS Stable OBJECTIVE Vital Signs Vital Signs Date Time Temp Pulse Resp B/P (MAP) Pulse Ox O2 Delivery O2 Flow Rate FiO2 02/11/18 11:46 96 Room Air 02/11/18 09:49 97.2 64 17 129/60 2 97.2 I & 0 Intake and Output 02/11/18 07:00 Intake Total 1900 ml Output Total 20 ml Balance 1880 ml Intake Oral 1900 ml Emesis 20 ml PHYSICAL EXAM Physical Exam GENERAL: Propped up in bed, in HD HEENT - OM moist LUNGS: Clear. HEART: S1, S2 regular. ABDOMEN: Soft, NT, ND EXTREMITIES: Left BKA. RLE less swollen and red; + wrinkles. Incision well-approx w/ alberto. Wound very clean and granulating. 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 As per vascular and ID Anemia- Stable DM- as per primary DW Pt COMMENT/RELEVANT DATA Meds Current Medications Medications (Trade) Dose Ordered Sig/Martin Start Time Stop Time Status Last Admin Dose Admin Acetaminophen (Tylenol) 500 mg 1X PRN PRN 02/04/18 07:15 02/05/18 07:14 DC Albumin Human 200 ml @ 200 mls/hr 1X PRN PRN 02/11/18 10:00 02/11/18 15:59 Albuterol Sulfate (Ventolin Neb Soln) 2.5 mg PRN BID PRN 01/27/18 12:30 01/27/18 21:59 2.5 MG Alteplase, Recombinant (Cathflo) 2 mg 1X ONCE 02/10/18 21:30 02/10/18 21:31 DC 02/10/18 22:18 2 MG Amiodarone HCl (Cordarone) 200 mg DAILY 01/27/18 12:30 02/10/18 09:00 200 MG Aspirin (Anthony Aspirin) 325 mg DAILY 01/27/18 12:30 01/28/18 14:26 DC 01/28/18 09:13 325 MG Aspirin (Ecotrin) 81 mg DAILYWBKFT 01/29/18 08:00 02/10/18 08:57 81 MG Atorvastatin Calcium (Lipitor) 80 mg QHS 01/27/18 21:00 02/10/18 20:14 80 MG Bacitracin (Bacitracin) 50,000 unit STK-MED ONCE 02/01/18 13:32 02/01/18 14:32 DC 02/01/18 14:55 50,000 UNIT Bacitracin 12379 unit/Sodium Chloride 3,000 ml @ 0 mls/hr 1X ONCE 01/27/18 13:15 01/27/18 13:16 Cancel Calcitriol (Rocaltrol) 0.25 mcg DAILY 01/27/18 12:30 02/10/18 08:57 0.25 MCG Carbamazepine (TEGretol) 200 mg BID 01/27/18 12:30 02/10/18 20:15 200 MG Carvedilol (Coreg) 12.5 mg BIDWMEALS 01/27/18 12:30 02/10/18 17:23 12.5 MG Cefazolin Sodium 1 gm/Sodium Chloride 500 ml @ 500 mls/hr 1X ONCE 02/01/18 06:00 02/01/18 06:59 DC Cefepime HCl (Maxipime) 1 gm Q24H 02/05/18 12:00 02/09/18 09:35 DC 02/08/18 14:49 1 GM Cefepime HCl 1 gm/ Dextrose 50 ml @ 100 mls/hr DAILY 02/06/18 09:00 UNV Ceftriaxone Sodium 2 gm/ Dextrose 100 ml @ 200 mls/hr Q24H 02/04/18 13:00 02/05/18 11:49 DC 02/04/18 14:24 200 MLS/HR Cellulose (Surgicel Fibrillar 1x2) 1 each STK-MED ONCE 02/01/18 12:05 02/01/18 13:06 DC Clopidogrel Bisulfate (Plavix) 75 mg DAILYWBKFT 01/28/18 08:00 01/28/18 14:28 DC 01/28/18 09:13 75 MG Darbepoetin Mauricio (Aranesp) 60 mcg WEEKLYHS 02/01/18 21:00 02/08/18 20:41 60 MCG Desflurane (Suprane) 30 ml STK-MED ONCE 02/11/18 08:41 02/11/18 08:42 DC Dexamethasone Sodium Phosphate (Decadron) 20 mg STK-MED ONCE 02/11/18 07:20 02/11/18 07:21 DC Dextrose (Dextrose 50%-Water Syringe) 12.5 gm PRN Q15MIN PRN 01/28/18 14:45 02/05/18 08:50 12.5 GM Diltiazem HCl (Cardizem 24hr Cd) 120 mg DAILY 01/27/18 12:30 02/09/18 12:43 120 MG Diphenhydramine HCl (Benadryl) 50 mg 1X ONCE 02/09/18 08:30 02/09/18 08:31 DC 02/09/18 09:06 50 MG Docusate Sodium (Colace) 100 mg PRN DAILY PRN 02/04/18 10:30 02/07/18 22:13 100 MG Ephedrine Sulfate (ePHEDrine PF IN SALINE SYRINGE) 50 mg STK-MED ONCE 02/11/18 08:22 02/11/18 08:23 DC Erythromycin (E-Mycin) 250 mg BID 01/27/18 21:00 02/10/18 20:15 250 MG Famotidine (Pepcid Vial) 20 mg STK-MED ONCE 02/11/18 07:20 02/11/18 07:21 DC Famotidine (Pepcid) 20 mg QHS 02/08/18 21:00 02/10/18 20:15 20 MG Fenofibrate (Lofibra) 134 mg QHS 01/27/18 21:00 02/10/18 20:15 134 MG Fentanyl Citrate (Fentanyl 2ml Vial) 100 mcg STK-MED ONCE 02/11/18 07:20 02/11/18 07:21 DC Furosemide (Lasix) 80 mg BID92 01/27/18 12:30 02/10/18 14:38 80 MG Gentamicin Sulfate 100 mg/ Dextrose 52.5 ml @ 105 mls/hr QTUTHSA 02/11/18 16:00 Gentamicin Sulfate 140 mg/ Dextrose 103.5 ml @ 207 mls/hr 1X ONCE 02/09/18 12:00 02/09/18 12:29 DC 02/09/18 12:26 207 MLS/HR Gentamicin Sulfate 235 mg/ Dextrose 105.875 ml @ 105.875 mls/hr 1X ONCE 01/27/18 16:00 01/27/18 16:59 DC 01/27/18 19:56 105.875 MLS/HR Gentamicin Sulfate 1 each 1X ONCE 02/13/18 05:00 02/13/18 05:01 Heparin Sodium (Porcine) (Hep Lock Adult) 500 unit 1X ONCE 01/29/18 14:00 01/29/18 14:17 DC 01/29/18 14:04 500 UNIT Hydralazine HCl (Apresoline) 10 mg PRN TID PRN 01/28/18 14:45 Hydromorphone HCl (Dilaudid) 0.5 mg PRN Q10MIN PRN 02/11/18 07:15 02/11/18 12:40 DC Influenza Virus Vaccine (Afluria Trivalent [id number] Syringe) 0.5 ml ONCE ONCE 01/27/18 09:00 01/27/18 09:01 DC 01/27/18 09:00 0.5 ML Info (PHARMACY MONITORING -- do not chart) 1 each PRN DAILY PRN 02/11/18 10:00 UNV Insulin Glargine (Lantus) 22 units QHS 01/27/18 21:00 02/06/18 22:21 8 UNITS Insulin Human Lispro (HumaLOG) 0-5 UNITS TIDWMEALS 01/28/18 17:00 02/07/18 09:07 2 UNITS Lactobacillus Rhamnosus (Culturelle) 1 cap BID 01/27/18 21:00 02/10/18 20:15 1 CAP Lidocaine (Lidoderm) 1 patch PRN DAILY PRN 01/27/18 09:00 Lidocaine HCl (Lidocaine 1% 50ml Vial) 50 ml 1X ONCE 01/30/18 15:45 01/30/18 15:46 DC Lidocaine HCl (Lidocaine Pf 2% Vial) 5 ml STK-MED ONCE 02/11/18 07:20 02/11/18 07:21 DC Lidocaine HCl (Xylocaine 1% Pf 30ml Vial) 30 ml STK-MED ONCE 02/11/18 05:57 02/11/18 06:58 DC Lidocaine HCl (Xylocaine-Mpf 1% 2ml Vial) 2 ml 1X ONCE 02/11/18 10:00 02/11/18 10:13 DC Lidocaine HCl (Xylocaine-Mpf 2% Vial) 2 ml STK-MED ONCE 02/09/18 09:00 02/10/18 13:19 DC Lidocaine/ Epinephrine (LIDOCAINE 1%-EPI 1:100,000 Multi-Dose) 8 ml 1X ONCE 01/29/18 14:00 01/29/18 14:17 DC 01/29/18 14:01 8 ML Linezolid/Dextrose 300 ml @ 300 mls/hr Q12HR 02/09/18 10:00 02/10/18 23:11 300 MLS/HR Lubiprostone (Amitiza) 8 mcg BIDWMEALS 02/09/18 17:00 02/10/18 17:23 8 MCG Metronidazole 100 ml @ 100 mls/hr Q8HRS 02/09/18 14:00 02/11/18 07:34 100 MLS/HR Midazolam HCl (Versed) 2 mg STK-MED ONCE 02/11/18 07:21 02/11/18 07:22 DC Miscellaneous (Lidoderm Patch Removal) 1 ea QHS 01/27/18 21:00 02/05/18 20:57 1 EA Morphine Sulfate (Morphine Sulfate) 1 mg PRN Q10MIN PRN 02/11/18 07:15 02/11/18 12:41 DC Morphine Sulfate (Ms Contin) 15 mg BID 01/27/18 12:30 02/10/18 20:15 15 MG Niacin (Slo-Niacin) 500 mg QHS 01/27/18 21:00 02/10/18 20:14 500 MG Nitroglycerin (Nitrostat) 0.4 mg PRN Q5MIN PRN 01/27/18 12:00 Non-Formulary Medication (Albuterol Sulfate (Proventil Hfa Inhaler)) 2 puff BID PRN 01/27/18 12:00 UNV Non-Formulary Medication (Fluconazole (Diflucan)) 100 mg PRN 01/27/18 12:00 UNV Nystatin (Nystop) 1 erich PRN BID PRN 01/27/18 12:00 Ondansetron HCl (Zofran Odt) 4 mg PRN Q6HRS PRN 01/27/18 12:15 02/07/18 16:53 4 MG Ondansetron HCl (Zofran) 4 mg STK-MED ONCE 02/11/18 07:20 02/11/18 07:21 DC Oxycodone/ Acetaminophen (Percocet ) 1 tab PRN Q4HRS PRN 01/29/18 07:45 02/10/18 17:24 1 TAB Pharmacy Consult (C.diff Med Screen By Rx) 1 each 1X ONCE 01/27/18 01:00 01/27/18 01:01 Cancel Polyethylene Glycol (miraLAX PACKET) 17 gm DAILY 02/08/18 12:30 02/10/18 08:56 17 GM Prochlorperazine Edisylate (Compazine) 5 mg PACU PRN PRN 02/11/18 07:15 02/11/18 12:42 DC Promethazine HCl (Phenergan Im) 12.5 mg 1X ONCE 01/29/18 12:45 01/29/18 12:46 DC Promethazine HCl (Phenergan Supp) 12.5 mg 1X ONCE 01/29/18 12:15 01/29/18 12:36 DC Propofol 20 ml @ As Directed STK-MED ONCE 02/11/18 07:20 02/11/18 07:21 DC Ringer's Solution 1,000 ml @ 30 mls/hr Q24H 02/11/18 07:15 02/11/18 19:14 Cancel Sevoflurane (Ultane) 30 ml STK-MED ONCE 01/27/18 13:11 01/27/18 13:12 DC Silver Sulfadiazine (Silvadene) 25 erich STK-MED ONCE 02/11/18 05:56 02/11/18 06:57 DC Sodium Chloride 1,000 ml @ 400 mls/hr Q2H30M PRN 02/11/18 09:57 02/11/18 21:56 Sodium Chloride (Normal Saline Flush) 10 ml 1X PRN PRN 01/30/18 13:15 01/31/18 13:14 DC Ticagrelor (Brilinta) 90 mg BID 01/28/18 21:00 02/10/18 20:14 90 MG Tramadol HCl (Ultram) 50 mg PRN Q4HRS PRN 01/27/18 12:00 02/08/18 04:36 50 MG Vancomycin HCl (Vanco Per Pharmacy) 1 each PRN DAILY PRN 02/05/18 12:00 02/09/18 09:50 DC 02/08/18 14:35 1 EACH Vancomycin HCl (Vancomycin Random Level) 1 each 1X ONCE 02/08/18 05:00 02/08/18 05:01 DC 02/08/18 05:00 1 EACH Vancomycin HCl 1.5 gm/Sodium Chloride 500 ml @ 250 mls/hr 1X ONCE 02/05/18 14:00 02/05/18 15:59 DC 02/05/18 14:05 250 MLS/HR Vancomycin HCl 1.75 gm/Sodium Chloride 500 ml @ 250 mls/hr 1X ONCE 01/26/18 23:00 01/27/18 00:59 DC 01/26/18 23:53 250 MLS/HR Vancomycin HCl 500 mg/Sodium Chloride 100 ml @ 100 mls/hr QTUTHSA 02/09/18 16:00 02/09/18 16:00 DC Vitamin B Complex/ Vitamin C (Melly-Shabbir) 1 tab DAILY 01/27/18 12:30 02/10/18 08:57 1 TAB Lab Laboratory Tests Test 02/10/18 16:41 02/10/18 23:38 02/11/18 05:42 02/11/18 08:56 Glucose (Fingerstick) 128 mg/dL (70-99) 125 mg/dL (70-99) 107 mg/dL (70-99) White Blood Count 14.0 x10^3/uL (4.0-11.0) Red Blood Count 2.48 x10^6/uL (3.50-5.40) Hemoglobin 8.1 g/dL (12.0-15.5) Hematocrit 23.5 % (36.0-47.0) Mean Corpuscular Volume 95 fL (79-100) Mean Corpuscular Hemoglobin 33 pg (25-35) Mean Corpuscular Hemoglobin Concent 34 g/dL (31-37) Red Cell Distribution Width 17.7 % (11.5-14.5) Platelet Count 361 x10^3/uL (140-400) Neutrophils (%) (Auto) 88 % (31-73) Lymphocytes (%) (Auto) 4 % (24-48) Monocytes (%) (Auto) 7 % (0-9) Eosinophils (%) (Auto) 0 % (0-3) Basophils (%) (Auto) 0 % (0-3) Neutrophils # (Auto) 12.3 x10^3uL (1.8-7.7) Lymphocytes # (Auto) 0.6 x10^3/uL (1.0-4.8) Monocytes # (Auto) 1.0 x10^3/uL (0.0-1.1) Eosinophils # (Auto) 0.0 x10^3/uL (0.0-0.7) Basophils # (Auto) 0.1 x10^3/uL (0.0-0.2) Sodium Level 135 mmol/L (136-145) Potassium Level 3.7 mmol/L (3.5-5.1) Chloride Level 99 mmol/L (98-107) Carbon Dioxide Level 27 mmol/L (21-32) Anion Gap 9 (6-14) Blood Urea Nitrogen 21 mg/dL (7-20) Creatinine 4.7 mg/dL (0.6-1.0) Estimated GFR (Cockcroft-Gault) 9.8 BUN/Creatinine Ratio 4 (6-20) Glucose Level 124 mg/dL (70-99) Calcium Level 8.4 mg/dL (8.5-10.1) Total Bilirubin 0.5 mg/dL (0.2-1.0) Aspartate Amino Transf (AST/SGOT) 13 U/L (15-37) Alanine Aminotransferase (ALT/SGPT) 13 U/L (14-59) Alkaline Phosphatase 92 U/L (46-116) Total Protein 5.1 g/dL (6.4-8.2) Albumin 2.0 g/dL (3.4-5.0) Albumin/Globulin Ratio 0.6 (1.0-1.7) Random Gentamicin Level 3.6 mcg/mL Test 02/11/18 11:53 Glucose (Fingerstick) 119 mg/dL (70-99) Results All relevant outside records, renal labs, imaging studies, telemetry/EKG's were reviewed. HEMANT SCHAEFER MD Feb 11, 2018 13:06
[2018-02-11] MEDS ORDERED: LIDOCAINE 2% PF 2ML VIAL. ONE ×2 (13:22→14:00)
--- NOTE | 2018-02-11 13:39 | PDOC ---
Subjective: Subjective: Nausea "isn't great." Objective: Objective: Called by AGUSTÍN hong for tomorrow. Vital Signs: Vital Signs Date Time Temp Pulse Resp B/P (MAP) Pulse Ox O2 Delivery O2 Flow Rate FiO2 02/11/18 11:46 96 Room Air 02/11/18 09:49 97.2 64 17 129/60 2 97.2 Labs: Laboratory Tests Test 02/10/18 16:41 02/10/18 23:38 02/11/18 05:42 02/11/18 08:56 Glucose (Fingerstick) 128 mg/dL 125 mg/dL 107 mg/dL White Blood Count 14.0 x10^3/uL Red Blood Count 2.48 x10^6/uL Hemoglobin 8.1 g/dL Hematocrit 23.5 % Mean Corpuscular Volume 95 fL Mean Corpuscular Hemoglobin 33 pg Mean Corpuscular Hemoglobin Concent 34 g/dL Red Cell Distribution Width 17.7 % Platelet Count 361 x10^3/uL Neutrophils (%) (Auto) 88 % Lymphocytes (%) (Auto) 4 % Monocytes (%) (Auto) 7 % Eosinophils (%) (Auto) 0 % Basophils (%) (Auto) 0 % Neutrophils # (Auto) 12.3 x10^3uL Lymphocytes # (Auto) 0.6 x10^3/uL Monocytes # (Auto) 1.0 x10^3/uL Eosinophils # (Auto) 0.0 x10^3/uL Basophils # (Auto) 0.1 x10^3/uL Sodium Level 135 mmol/L Potassium Level 3.7 mmol/L Chloride Level 99 mmol/L Carbon Dioxide Level 27 mmol/L Anion Gap 9 Blood Urea Nitrogen 21 mg/dL Creatinine 4.7 mg/dL Estimated GFR (Cockcroft-Gault) 9.8 BUN/Creatinine Ratio 4 Glucose Level 124 mg/dL Calcium Level 8.4 mg/dL Total Bilirubin 0.5 mg/dL Aspartate Amino Transf (AST/SGOT) 13 U/L Alanine Aminotransferase (ALT/SGPT) 13 U/L Alkaline Phosphatase 92 U/L Total Protein 5.1 g/dL Albumin 2.0 g/dL Albumin/Globulin Ratio 0.6 Random Gentamicin Level 3.6 mcg/mL Test 02/11/18 11:53 Glucose (Fingerstick) 119 mg/dL PE: GEN: NAD EXTREM: RLE wound LUNGS: room air ABD: soft NEURO/PSYCH: very drowsy, having trouble unlocking her cell phone A/P: S/p RLE bypass/infection - another debridement today Chronic anemia - stable Chronic nausea w/ h/o gastroparesis - on H2 bulmaro and e-mycin -- Plans for HIDA tomorrow, await this. EDDY IGLESIAS Feb 11, 2018 13:39 CECE GRAHAM MD Feb 11, 2018 13:54
--- NOTE | 2018-02-11 13:56 | PDOC ---
PROGRESS NOTES Chief Complaint Chief Complaint RIght groin sx wound infection s/p i and d 02/01 and 02/05 with wound vac on, wound cx + Kpna recent right leg PAD s/p R fem to pop bypass ESRD on dialysis h/o L BKA CAD w/ hx CABG, EF 50% Diabetic retinopathy Macular degeneration Cataracts H/O CAD with multiple stents Leukocytosis post steroids - trending down Right lower extremity swelling with superficial skin breakdown from injury on with abrasion and subsequent redness and swelling, treated with outpatient Keflex End-stage renal disease, on dialysis via AV fistula here ,at home per pt is on PD. ANTIBIOTIC ALLERGY TO MEROPENEM, PIPERACILLIN AND TAZOBACTAM CAUSING PEELING AND BLEEDING OF THE SKIN. ALSO, SULFA. TOLERATES KEFLEX AND HAS BEEN ON CEFAZOLIN, THOUGH HAS CAUSED ITCHING. H/o recent urinary tract infection, though urine cultures are negative, on Cipro POA for 5 days. A- fib, amiodarone therapy Gastroparesis, E. Mycin Left retinal optic disc drusen, bl blurry vision EGD 02/05 non erosive gatritis decubitus ulcer gastroparesis Distended hydropic gallbladder containing sludge. Hepatomegaly. 1.4 cm lobular lesion along the left renal cortex stable plan: fu with id, vascular, renal, gi on wound vac, wound care changed abx to zyvox, genta, flagyl as per ID, may need CT if cont not responding to abx. neg bcx so far. wound cx + kPNA cont home meds dvt ppx fu with ophthal as outpt discussed with pt about the US finding, likely no sx intervention needed at this time point given pt has no abd pain and other issues going on, fu with GI, HIDA tmr talked to wound care, FU WITH vascular , i and d 02/05 again dc select when stable History of Present Illness History of Present Illness Pt seen and examined Dw RN Sitting up right 02/09/18:higher wbc 19, more nausea. has n/o gastroparesis told me has decubitus ulcer, last pic 02/07 looks ok 02/10: wbc better to 14, but there is some new necrotic tissues at the wound edge seen when changing the VAC US showed gallbladder sludge 02/11 i and d again for necrotic tissues at right thigh wound Vitals Vitals Vital Signs Date Time Temp Pulse Resp B/P (MAP) Pulse Ox O2 Delivery O2 Flow Rate FiO2 02/11/18 11:46 96 Room Air 02/11/18 09:49 97.2 64 17 129/60 2 97.2 Physical Exam Physical Exam GENERAL: Propped up in bed, looks better OC/Op- dry LUNGS: Clear. HEART: S1, S2 regular. ABDOMEN: Soft, NT, ND EXTREMITIES: Left BKA. RLE less swollen and red; + wrinkles. Incision well-approx w/ alebrto. Wound very clean and granulating. Heel without wound NEUROLOGIC: More Alert and more responsive SKIN: without rash Tunnelled RIJ (01/29) clean Left chest line is clean General: Alert, Oriented X3, Cooperative, No acute distress Heart: Regular rate, Normal S1, Normal S2, No murmurs, Gallops Lungs: Wheezing Abdomen: Normal bowel sounds, Soft, No tenderness, No hepatosplenomegaly, No masses Extremities: Other (wound inspected. Excellent muscle viability. Some washburn exudate peripheral edges superior and medial. Should respond to further wound suction dressing. measurements recorded.) Skin: No breakdown, Other (dehiscence of the proximal right common femoral incision and vein harvest site with lower extremity edema and mild cellulitis) Labs LABS Laboratory Tests Test 02/10/18 16:41 02/10/18 23:38 02/11/18 05:42 02/11/18 08:56 Glucose (Fingerstick) 128 mg/dL (70-99) 125 mg/dL (70-99) 107 mg/dL (70-99) White Blood Count 14.0 x10^3/uL (4.0-11.0) Red Blood Count 2.48 x10^6/uL (3.50-5.40) Hemoglobin 8.1 g/dL (12.0-15.5) Hematocrit 23.5 % (36.0-47.0) Mean Corpuscular Volume 95 fL (79-100) Mean Corpuscular Hemoglobin 33 pg (25-35) Mean Corpuscular Hemoglobin Concent 34 g/dL (31-37) Red Cell Distribution Width 17.7 % (11.5-14.5) Platelet Count 361 x10^3/uL (140-400) Neutrophils (%) (Auto) 88 % (31-73) Lymphocytes (%) (Auto) 4 % (24-48) Monocytes (%) (Auto) 7 % (0-9) Eosinophils (%) (Auto) 0 % (0-3) Basophils (%) (Auto) 0 % (0-3) Neutrophils # (Auto) 12.3 x10^3uL (1.8-7.7) Lymphocytes # (Auto) 0.6 x10^3/uL (1.0-4.8) Monocytes # (Auto) 1.0 x10^3/uL (0.0-1.1) Eosinophils # (Auto) 0.0 x10^3/uL (0.0-0.7) Basophils # (Auto) 0.1 x10^3/uL (0.0-0.2) Sodium Level 135 mmol/L (136-145) Potassium Level 3.7 mmol/L (3.5-5.1) Chloride Level 99 mmol/L (98-107) Carbon Dioxide Level 27 mmol/L (21-32) Anion Gap 9 (6-14) Blood Urea Nitrogen 21 mg/dL (7-20) Creatinine 4.7 mg/dL (0.6-1.0) Estimated GFR (Cockcroft-Gault) 9.8 BUN/Creatinine Ratio 4 (6-20) Glucose Level 124 mg/dL (70-99) Calcium Level 8.4 mg/dL (8.5-10.1) Total Bilirubin 0.5 mg/dL (0.2-1.0) Aspartate Amino Transf (AST/SGOT) 13 U/L (15-37) Alanine Aminotransferase (ALT/SGPT) 13 U/L (14-59) Alkaline Phosphatase 92 U/L (46-116) Total Protein 5.1 g/dL (6.4-8.2) Albumin 2.0 g/dL (3.4-5.0) Albumin/Globulin Ratio 0.6 (1.0-1.7) Random Gentamicin Level 3.6 mcg/mL Test 02/11/18 11:53 Glucose (Fingerstick) 119 mg/dL (70-99) Assessment and Plan Assessmemt and Plan Problems Medical Problems: (1) Chronic renal failure Status: Acute Comment Review of Relevant I have reviewed the following items bert (where applicable) has been applied. Labs Laboratory Tests Test 02/09/18 16:42 02/09/18 21:17 02/10/18 05:00 02/10/18 07:11 Glucose (Fingerstick) 107 mg/dL (70-99) 146 mg/dL (70-99) 116 mg/dL (70-99) White Blood Count 14.6 x10^3/uL (4.0-11.0) Red Blood Count 2.45 x10^6/uL (3.50-5.40) Hemoglobin 7.7 g/dL (12.0-15.5) Hematocrit 23.2 % (36.0-47.0) Mean Corpuscular Volume 95 fL (79-100) Mean Corpuscular Hemoglobin 32 pg (25-35) Mean Corpuscular Hemoglobin Concent 33 g/dL (31-37) Red Cell Distribution Width 17.6 % (11.5-14.5) Platelet Count 368 x10^3/uL (140-400) Neutrophils (%) (Auto) 84 % (31-73) Lymphocytes (%) (Auto) 5 % (24-48) Monocytes (%) (Auto) 10 % (0-9) Eosinophils (%) (Auto) 1 % (0-3) Basophils (%) (Auto) 1 % (0-3) Neutrophils # (Auto) 12.2 x10^3uL (1.8-7.7) Lymphocytes # (Auto) 0.7 x10^3/uL (1.0-4.8) Monocytes # (Auto) 1.4 x10^3/uL (0.0-1.1) Eosinophils # (Auto) 0.1 x10^3/uL (0.0-0.7) Basophils # (Auto) 0.1 x10^3/uL (0.0-0.2) Sodium Level 140 mmol/L (136-145) Potassium Level 3.8 mmol/L (3.5-5.1) Chloride Level 101 mmol/L (98-107) Carbon Dioxide Level 30 mmol/L (21-32) Anion Gap 9 (6-14) Blood Urea Nitrogen 17 mg/dL (7-20) Creatinine 3.8 mg/dL (0.6-1.0) Estimated GFR (Cockcroft-Gault) 12.5 BUN/Creatinine Ratio 4 (6-20) Glucose Level 117 mg/dL (70-99) Calcium Level 8.3 mg/dL (8.5-10.1) Total Bilirubin 0.5 mg/dL (0.2-1.0) Aspartate Amino Transf (AST/SGOT) 14 U/L (15-37) Alanine Aminotransferase (ALT/SGPT) 14 U/L (14-59) Alkaline Phosphatase 86 U/L (46-116) Total Protein 5.0 g/dL (6.4-8.2) Albumin 1.9 g/dL (3.4-5.0) Albumin/Globulin Ratio 0.6 (1.0-1.7) Test 02/10/18 11:23 02/10/18 16:41 02/10/18 23:38 02/11/18 05:42 Glucose (Fingerstick) 249 mg/dL (70-99) 128 mg/dL (70-99) 125 mg/dL (70-99) White Blood Count 14.0 x10^3/uL (4.0-11.0) Red Blood Count 2.48 x10^6/uL (3.50-5.40) Hemoglobin 8.1 g/dL (12.0-15.5) Hematocrit 23.5 % (36.0-47.0) Mean Corpuscular Volume 95 fL (79-100) Mean Corpuscular Hemoglobin 33 pg (25-35) Mean Corpuscular Hemoglobin Concent 34 g/dL (31-37) Red Cell Distribution Width 17.7 % (11.5-14.5) Platelet Count 361 x10^3/uL (140-400) Neutrophils (%) (Auto) 88 % (31-73) Lymphocytes (%) (Auto) 4 % (24-48) Monocytes (%) (Auto) 7 % (0-9) Eosinophils (%) (Auto) 0 % (0-3) Basophils (%) (Auto) 0 % (0-3) Neutrophils # (Auto) 12.3 x10^3uL (1.8-7.7) Lymphocytes # (Auto) 0.6 x10^3/uL (1.0-4.8) Monocytes # (Auto) 1.0 x10^3/uL (0.0-1.1) Eosinophils # (Auto) 0.0 x10^3/uL (0.0-0.7) Basophils # (Auto) 0.1 x10^3/uL (0.0-0.2) Sodium Level 135 mmol/L (136-145) Potassium Level 3.7 mmol/L (3.5-5.1) Chloride Level 99 mmol/L (98-107) Carbon Dioxide Level 27 mmol/L (21-32) Anion Gap 9 (6-14) Blood Urea Nitrogen 21 mg/dL (7-20) Creatinine 4.7 mg/dL (0.6-1.0) Estimated GFR (Cockcroft-Gault) 9.8 BUN/Creatinine Ratio 4 (6-20) Glucose Level 124 mg/dL (70-99) Calcium Level 8.4 mg/dL (8.5-10.1) Total Bilirubin 0.5 mg/dL (0.2-1.0) Aspartate Amino Transf (AST/SGOT) 13 U/L (15-37) Alanine Aminotransferase (ALT/SGPT) 13 U/L (14-59) Alkaline Phosphatase 92 U/L (46-116) Total Protein 5.1 g/dL (6.4-8.2) Albumin 2.0 g/dL (3.4-5.0) Albumin/Globulin Ratio 0.6 (1.0-1.7) Random Gentamicin Level 3.6 mcg/mL Test 02/11/18 08:56 02/11/18 11:53 Glucose (Fingerstick) 107 mg/dL (70-99) 119 mg/dL (70-99) Laboratory Tests Test 02/10/18 16:41 02/10/18 23:38 02/11/18 05:42 02/11/18 08:56 Glucose (Fingerstick) 128 mg/dL (70-99) 125 mg/dL (70-99) 107 mg/dL (70-99) White Blood Count 14.0 x10^3/uL (4.0-11.0) Red Blood Count 2.48 x10^6/uL (3.50-5.40) Hemoglobin 8.1 g/dL (12.0-15.5) Hematocrit 23.5 % (36.0-47.0) Mean Corpuscular Volume 95 fL (79-100) Mean Corpuscular Hemoglobin 33 pg (25-35) Mean Corpuscular Hemoglobin Concent 34 g/dL (31-37) Red Cell Distribution Width 17.7 % (11.5-14.5) Platelet Count 361 x10^3/uL (140-400) Neutrophils (%) (Auto) 88 % (31-73) Lymphocytes (%) (Auto) 4 % (24-48) Monocytes (%) (Auto) 7 % (0-9) Eosinophils (%) (Auto) 0 % (0-3) Basophils (%) (Auto) 0 % (0-3) Neutrophils # (Auto) 12.3 x10^3uL (1.8-7.7) Lymphocytes # (Auto) 0.6 x10^3/uL (1.0-4.8) Monocytes # (Auto) 1.0 x10^3/uL (0.0-1.1) Eosinophils # (Auto) 0.0 x10^3/uL (0.0-0.7) Basophils # (Auto) 0.1 x10^3/uL (0.0-0.2) Sodium Level 135 mmol/L (136-145) Potassium Level 3.7 mmol/L (3.5-5.1) Chloride Level 99 mmol/L (98-107) Carbon Dioxide Level 27 mmol/L (21-32) Anion Gap 9 (6-14) Blood Urea Nitrogen 21 mg/dL (7-20) Creatinine 4.7 mg/dL (0.6-1.0) Estimated GFR (Cockcroft-Gault) 9.8 BUN/Creatinine Ratio 4 (6-20) Glucose Level 124 mg/dL (70-99) Calcium Level 8.4 mg/dL (8.5-10.1) Total Bilirubin 0.5 mg/dL (0.2-1.0) Aspartate Amino Transf (AST/SGOT) 13 U/L (15-37) Alanine Aminotransferase (ALT/SGPT) 13 U/L (14-59) Alkaline Phosphatase 92 U/L (46-116) Total Protein 5.1 g/dL (6.4-8.2) Albumin 2.0 g/dL (3.4-5.0) Albumin/Globulin Ratio 0.6 (1.0-1.7) Random Gentamicin Level 3.6 mcg/mL Test 02/11/18 11:53 Glucose (Fingerstick) 119 mg/dL (70-99) Microbiology 02/06/18 Blood Culture - Final, Complete NO GROWTH AFTER 5 DAYS 01/27/18 Anaerobic/Aerobic Culture - Final, Complete 01/27/18 Anaerobic Culture Result 1 (ROSALIND) - Final, Complete 01/27/18 Aerobic Culture - Final, Complete 01/27/18 Aerobic Culture Result 1 (ROSALIND) - Final, Complete 01/27/18 Antimicrobic Susceptibility - Final, Complete 01/27/18 Gram Stain - Final, Complete 01/27/18 Gram Stain Result 1 (ROSALIND) - Final, Complete 01/27/18 Gram Stain Result 2 (ROSALIND) - Final, Complete Medications Current Medications Hydromorphone HCl (Dilaudid) 2 mg 1X ONCE IV Last administered on 01/26/18at 22 :39; Start 01/26/18 at 22:00; Stop 01/26/18 at 22:01; Status DC Vancomycin HCl (Vanco Per Pharmacy) 1 each PRN DAILY PRN MC SEE COMMENTS Last administered on 01/31/18at 17:20; Start 01/26/18 at 22:45; Stop 02/01/18 at 11:41 ; Status DC Vancomycin HCl 1.75 gm/Sodium Chloride 500 ml @ 250 mls/hr 1X ONCE IV Last administered on 01/26/18at 23:53; Start 01/26/18 at 23:00; Stop 01/27/18 at 00:59 ; Status DC Ondansetron HCl (Zofran) 4 mg PRN Q8HRS PRN IV NAUSEA/VOMITING 1ST CHOICE; Start 01/26/18 at 23:15; Stop 01/27/18 at 23:14; Status DC Sodium Chloride 1,000 ml @ 75 mls/hr [id number] IV Last administered on at 00:39; Start 01/26/18 at 23:30; Stop 01/27/18 at 23:29; Status DC Pharmacy Consult (C.diff Med Screen By Rx) 1 each 1X ONCE MC ; Start 01/27/18 at 01:00; Stop 01/27/18 at 01:01; Status Cancel Influenza Virus Vaccine (Afluria Trivalent [id number] Syringe) 0.5 ml ONCE ONCE VAX IM Last administered on 01/27/18at 09:00; Start 01/27/18 at 09:00; Stop 01/27/18 at 09:01; Status DC Vancomycin HCl (Vancomycin Random Level) 1 each 1X ONCE MC Last administered on 01/28/18at 05:00; Start 01/28/18 at 05:00; Stop 01/28/18 at 05:01; Status DC Hydromorphone HCl (Dilaudid) 1 mg PRN Q3HRS PRN IV SEVERE PAIN Last administered on 02/11/18at 05:44; Start 01/27/18 at 03:30 Ondansetron HCl (Zofran) 4 mg PRN Q6HRS PRN IV NAUSEA/VOMITING; Start 01/27/18 at 10:45; Stop 01/27/18 at 18:00; Status DC Fentanyl Citrate (Fentanyl 2ml Vial) 25 mcg PRN Q5MIN PRN IV MILD PAIN; Start 01/27/18 at 10:45; Stop 01/27/18 at 18:00; Status DC Fentanyl Citrate (Fentanyl 2ml Vial) 50 mcg PRN Q5MIN PRN IV MODERATE TO SEVERE PAIN; Start 01/27/18 at 10:45; Stop 01/27/18 at 18:00; Status DC Morphine Sulfate (Morphine Sulfate) 1 mg PRN Q10MIN PRN IV SEVERE PAIN Last administered on 01/27/18at 16:28; Start 01/27/18 at 10:45; Stop 01/27/18 at 18:00 ; Status DC Ringer's Solution 1,000 ml @ 30 mls/hr Q24H IV Last administered on 01/27/18at 10:35; Start 01/27/18 at 10:35; Stop 01/27/18 at 19:36; Status DC Lidocaine HCl (Xylocaine-Mpf 1% 2ml Vial) 2 ml 1X PRN PRN ID IV START; Start 01/27/18 at 10:45; Stop 01/27/18 at 18:00; Status DC Hydromorphone HCl (Dilaudid) 0.5 mg PRN Q10MIN PRN IV SEV PAIN, Second choice Last administered on 01/27/18at 15:59; Start 01/27/18 at 10:45; Stop 01/27/18 at 18:00; Status DC Prochlorperazine Edisylate (Compazine) 5 mg PACU PRN PRN IV NAUSEA, MRX1; Start 01/27/18 at 10:45; Stop 01/27/18 at 18:00; Status DC Amiodarone HCl (Cordarone) 200 mg DAILY PO Last administered on 02/10/18 09: 00; Start 01/27/18 at 12:30 Aspirin (Anthony Aspirin) 325 mg DAILY PO Last administered on 01/28/18 09:13; Start 01/27/18 at 12:30; Stop 01/28/18 at 14:26; Status DC Carbamazepine (TEGretol) 200 mg BID PO Last administered on 02/10/18 20:15; Start 01/27/18 at 12:30 Carvedilol (Coreg) 12.5 mg BIDWMEALS PO Last administered on 02/10/18 17:23; Start 01/27/18 at 12:30 Vitamin B Complex/ Vitamin C (Melly-Shabbir) 1 tab DAILY PO Last administered on 08:57; Start 01/27/18 at 12:30 Furosemide (Lasix) 80 mg [id number] PO Last administered on 02/10/18 14:38; Start 01/27/18 at 12:30 Insulin Glargine (Lantus) 22 units QHS SQ Last administered on 02/06/18 22:21 ; Start 01/27/18 at 21:00 Morphine Sulfate (Ms Contin) 15 mg BID PO Last administered on 02/10/18 20:15 ; Start 01/27/18 at 12:30 Nitroglycerin (Nitrostat) 0.4 mg PRN Q5MIN PRN SL CHEST PAIN; Start 01/27/18 at 12:00 Nystatin (Nystop) 1 susanna PRN BID PRN TP SKIN BREAKDOWN; Start 01/27/18 at 12:00 Tramadol HCl (Ultram) 50 mg PRN Q4HRS PRN PO HEADACHE Last administered on 04:36; Start 01/27/18 at 12:00 Non-Formulary Medication (Albuterol Sulfate (Proventil Hfa Inhaler)) 2 puff BID PRN IH FOR ASTHMA; Start 01/27/18 at 12:00; Status UNV Atorvastatin Calcium (Lipitor) 80 mg QHS PO Last administered on 02/10/18at 20: 14; Start 01/27/18 at 21:00 Calcitriol (Rocaltrol) 0.25 mcg DAILY PO Last administered on 02/10/18 08:57 ; Start 01/27/18 at 12:30 Diltiazem HCl (Cardizem 24hr Cd) 120 mg DAILY PO Last administered on 12:43; Start 01/27/18 at 12:30 Erythromycin (E-Mycin) 250 mg BID PO Last administered on 02/10/18at 20:15; Start 01/27/18 at 21:00 Fenofibrate (Lofibra) 134 mg QHS PO Last administered on 02/10/18at 20:15; Start 01/27/18 at 21:00 Non-Formulary Medication (Fluconazole (Diflucan)) 100 mg PRN PO ; Start at 12:00; Status UNV Lidocaine (Lidoderm) 1 patch PRN DAILY PRN TD PAIN; Start 01/27/18 at 09:00 Niacin (Slo-Niacin) 500 mg QHS PO Last administered on 02/10/18at 20:14; Start 01/27/18 at 21:00 Ondansetron HCl (Zofran Odt) 4 mg PRN Q6HRS PRN PO NAUSEA/VOMITING Last administered on 02/07/18 16:53; Start 01/27/18 at 12:15 Miscellaneous (Lidoderm Patch Removal) 1 ea QHS MC Last administered on at 20:57; Start 01/27/18 at 21:00 Albuterol Sulfate (Ventolin Neb Soln) 2.5 mg PRN BID PRN NEB SHORTNESS OF BREATH Last administered on 01/27/18at 21:59; Start 01/27/18 at 12:30 Lidocaine HCl (Lidocaine 1% 50ml Vial) 50 ml 1X ONCE INJ Last administered on 01/27/18at 14:06; Start 01/27/18 at 12:45; Stop 01/27/18 at 12:46; Status DC Hydromorphone HCl (Dilaudid) 2 mg STK-MED ONCE .ROUTE ; Start 01/27/18 at 12:36 ; Stop 01/27/18 at 12:38; Status DC Propofol 20 ml @ As Directed STK-MED ONCE IV ; Start 01/27/18 at 12:38; Stop at 12:39; Status DC Bacitracin 58049 unit/Sodium Chloride 3,000 ml @ 0 mls/hr 1X ONCE IR ; Start 01/27/18 at 13:15; Stop 01/27/18 at 13:16; Status Cancel Dexamethasone Sodium Phosphate (Decadron) 20 mg STK-MED ONCE .ROUTE ; Start 01/27/18 at 13:11; Stop 01/27/18 at 13:12; Status DC Ondansetron HCl (Zofran) 4 mg STK-MED ONCE .ROUTE ; Start 01/27/18 at 13:11; Stop 01/27/18 at 13:12; Status DC Sevoflurane (Ultane) 30 ml STK-MED ONCE IH ; Start 01/27/18 at 13:11; Stop 01/27 at 13:12; Status DC Bacitracin (Bacitracin) 50,000 unit STK-MED ONCE IRR Last administered on at 13:58; Start 01/27/18 at 12:14; Stop 01/27/18 at 13:16; Status DC Clopidogrel Bisulfate (Plavix) 75 mg DAILYWBKFT PO Last administered on at 09:13; Start 01/28/18 at 08:00; Stop 01/28/18 at 14:28; Status DC Hydromorphone HCl (Dilaudid) 2 mg STK-MED ONCE .ROUTE ; Start 01/27/18 at 15:38 ; Stop 01/27/18 at 15:40; Status DC Gentamicin Sulfate 235 mg/ Dextrose 105.875 ml @ 105.875 mls/hr 1X ONCE IV Last administered on 01/27/18at 19:56; Start 01/27/18 at 16:00; Stop 01/27/18 at 16:59; Status DC Lactobacillus Rhamnosus (Culturelle) 1 cap BID PO Last administered on at 20:15; Start 01/27/18 at 21:00 Cefepime HCl 1 gm/ Dextrose 50 ml @ 100 mls/hr DAILY IV ; Start 01/29/18 at 09: 00; Status UNV Metronidazole 100 ml @ 100 mls/hr Q12HR IV Last administered on 02/02/18at 21: 00; Start 01/28/18 at 10:00; Stop 02/03/18 at 10:49; Status DC Cefepime HCl (Maxipime) 1 gm Q24H IVP Last administered on 02/03/18at 10:54; Start 01/28/18 at 10:00; Stop 02/04/18 at 12:02; Status DC Lidocaine HCl (Xylocaine-Mpf 2% Vial) 2 ml STK-MED ONCE .ROUTE ; Start 01/28/18 at 11:41; Stop 01/28/18 at 11:42; Status DC Sodium Chloride 1,000 ml @ 1,000 mls/hr Q1H PRN IV hypotension; Start 01/28/18 at 12:09; Stop 01/28/18 at 18:08; Status DC Info (PHARMACY MONITORING -- do not chart) 1 each PRN DAILY PRN MC SEE COMMENTS ; Start 01/28/18 at 12:15; Status UNV Info (PHARMACY MONITORING -- do not chart) 1 each PRN DAILY PRN MC SEE COMMENTS ; Start 01/28/18 at 12:15; Stop 01/31/18 at 09:10; Status DC Lidocaine HCl (Xylocaine-Mpf 2% Vial) 2 ml 1X ONCE INJ ; Start 01/28/18 at 12: 15; Stop 01/28/18 at 12:21; Status DC Ticagrelor (Brilinta) 90 mg BID PO Last administered on 02/10/18at 20:14; Start 01/28/18 at 21:00 Diphenhydramine HCl (Benadryl) 25 mg PRN Q6HRS PRN PO ITCHING; Start 01/28/18 at 14:15 Aspirin (Ecotrin) 81 mg DAILYWBKFT PO Last administered on 02/10/18at 08:57; Start 01/29/18 at 08:00 Insulin Human Lispro (HumaLOG) 0-5 UNITS TIDWMEALS SQ Last administered on at 09:07; Start 01/28/18 at 17:00 Dextrose (Dextrose 50%-Water Syringe) 12.5 gm PRN Q15MIN PRN IV SEE COMMENTS Last administered on 02/05/18at 08:50; Start 01/28/18 at 14:45 Hydralazine HCl (Apresoline) 10 mg PRN TID PRN PO hypertension; Start 01/28/18 at 14:45 Oxycodone/ Acetaminophen (Percocet 10/325) 1 tab PRN Q4HRS PRN PO pain SEVERE Last administered on 02/10/18at 17:24; Start 01/29/18 at 07:45 Promethazine HCl (Phenergan Supp) 12.5 mg 1X ONCE [place] ; Start 01/29/18 at 12:15 ; Stop 01/29/18 at 12:36; Status DC Promethazine HCl (Phenergan Im) 12.5 mg 1X ONCE IM ; Start 01/29/18 at 12:45; Stop 01/29/18 at 12:46; Status DC Lidocaine/ Epinephrine (LIDOCAINE 1%-EPI 1:100,000 Multi-Dose) 20 ml STK-MED ONCE .ROUTE ; Start 01/29/18 at 12:45; Stop 01/29/18 at 12:47; Status DC Heparin Sodium (Porcine) (Hep Lock Adult) 500 unit STK-MED ONCE IV ; Start 01/29 at 12:45; Stop 01/29/18 at 12:47; Status DC Morphine Sulfate (Morphine Sulfate) 10 mg STK-MED ONCE .ROUTE ; Start 01/29/18 at 13:23; Stop 01/29/18 at 13:25; Status DC Midazolam HCl (Versed) 2 mg STK-MED ONCE .ROUTE ; Start 01/29/18 at 13:23; Stop 01/29/18 at 13:25; Status DC Morphine Sulfate (Morphine Sulfate) 1 mg PRN Q10MIN PRN IV SEVERE PAIN Last administered on 02/01/18at 15:46; Start 02/01/18 at 07:00; Stop 02/02/18 at 06:59 ; Status DC Ringer's Solution 1,000 ml @ 30 mls/hr Q24H IV ; Start 02/01/18 at 07:00; Stop 02/01/18 at 18:59; Status DC Lidocaine HCl (Xylocaine-Mpf 1% 2ml Vial) 2 ml PRN 1X PRN ID PRIOR TO IV START ; Start 02/01/18 at 07:00; Stop 02/02/18 at 06:59; Status DC Hydromorphone HCl (Dilaudid) 0.5 mg PRN Q10MIN PRN IV SEV PAIN, Second choice Last administered on 02/01/18at 16:08; Start 02/01/18 at 07:00; Stop 02/02/18 at 06:59; Status DC Prochlorperazine Edisylate (Compazine) 5 mg PACU PRN PRN IV NAUSEA, MRX1; Start 02/01/18 at 07:00; Stop 02/02/18 at 06:59; Status DC Lidocaine/ Epinephrine (LIDOCAINE 1%-EPI 1:100,000 Multi-Dose) 8 ml 1X ONCE IJ Last administered on 01/29/18at 14:01; Start 01/29/18 at 14:00; Stop 01/29/18 at 14:17; Status DC Heparin Sodium (Porcine) (Hep Lock Adult) 500 unit 1X ONCE IV Last administered on 01/29/18at 14:04; Start 01/29/18 at 14:00; Stop 01/29/18 at 14:17 ; Status DC Morphine Sulfate (Morphine Sulfate) 5 mg 1X ONCE IV Last administered on at 14:01; Start 01/29/18 at 14:00; Stop 01/29/18 at 14:17; Status DC Ondansetron HCl (Zofran) 4 mg PRN Q6HRS PRN IV NAUSEA/VOMITING 1ST CHOICE Last administered on 02/09/18at 08:22; Start 01/29/18 at 14:45 Vancomycin HCl 500 mg/Sodium Chloride 100 ml @ 100 mls/hr 1X ONCE IV Last administered on 01/29/18at 21:04; Start 01/29/18 at 18:00; Stop 01/29/18 at 18:59 ; Status DC Sodium Chloride 1,000 ml @ 1,000 mls/hr Q1H PRN IV hypotension; Start 01/30/18 at 13:09; Stop 01/30/18 at 19:08; Status DC Sodium Chloride (Normal Saline Flush) 10 ml 1X PRN PRN IV AP catheter pack; Start 01/30/18 at 13:15; Stop 01/31/18 at 13:14; Status DC Sodium Chloride (Normal Saline Flush) 10 ml 1X PRN PRN IV [employer] catheter pack; Start 01/30/18 at 13:15; Stop 01/31/18 at 13:14; Status DC Sodium Chloride 1,000 ml @ 400 mls/hr Q2H30M PRN IV PATENCY; Start 01/30/18 at 13:09; Stop 01/31/18 at 01:08; Status DC Info (PHARMACY MONITORING -- do not chart) 1 each PRN DAILY PRN MC SEE COMMENTS ; Start 01/30/18 at 13:15; Stop 01/30/18 at 13:17; Status DC Info (PHARMACY MONITORING -- do not chart) 1 each PRN DAILY PRN MC SEE COMMENTS ; Start 01/30/18 at 13:15; Stop 02/04/18 at 07:27; Status DC Lidocaine HCl (Lidocaine 1% 50ml Vial) 50 ml 1X ONCE INJ ; Start 01/30/18 at 15 :45; Stop 01/30/18 at 15:46; Status DC Vancomycin HCl 500 mg/Sodium Chloride 100 ml @ 100 mls/hr ONCE ONCE IV Last administered on 01/30/18at 20:49; Start 01/30/18 at 18:00; Stop 01/30/18 at 18:59 ; Status DC Cefazolin Sodium 1 gm/Sodium Chloride 500 ml @ 500 mls/hr 1X ONCE IRR ; Start 02/01/18 at 06:00; Stop 02/01/18 at 06:59; Status DC Lidocaine HCl (Xylocaine-Mpf 2% Vial) 2 ml STK-MED ONCE .ROUTE ; Start 01/28/18 at 12:00; Stop 02/01/18 at 08:30; Status DC Darbepoetin Mauricio (Aranesp) 60 mcg [id number] SQ Last administered on 02/08/18at 20:41; Start 02/01/18 at 21:00 Cellulose (Surgicel Fibrillar 1x2) 1 each STK-MED ONCE .ROUTE ; Start 02/01/18 at 12:05; Stop 02/01/18 at 13:06; Status DC Lidocaine HCl (Xylocaine 1% Pf 30ml Vial) 30 ml 1X ONCE INJ ; Start 02/01/18 at 13:15; Stop 02/01/18 at 13:18; Status DC Sodium Chloride 1,000 ml @ 75 mls/hr [id number] IV Last administered on at 00:15; Start 02/01/18 at 13:45; Stop 02/02/18 at 16:43; Status DC Morphine Sulfate (Morphine Sulfate) 10 mg STK-MED ONCE .ROUTE ; Start 02/01/18 at 14:24; Stop 02/01/18 at 14:25; Status DC Midazolam HCl (Versed) 2 mg STK-MED ONCE .ROUTE ; Start 02/01/18 at 14:24; Stop 02/01/18 at 14:25; Status DC Midazolam HCl (Versed) 2 mg STK-MED ONCE .ROUTE ; Start 02/01/18 at 14:25; Stop 02/01/18 at 14:26; Status DC Propofol 20 ml @ As Directed STK-MED ONCE IV ; Start 02/01/18 at 14:25; Stop at 14:26; Status DC Dexamethasone Sodium Phosphate (Decadron) 20 mg STK-MED ONCE .ROUTE ; Start 02/01/18 at 14:25; Stop 02/01/18 at 14:26; Status DC Ondansetron HCl (Zofran) 4 mg STK-MED ONCE .ROUTE ; Start 02/01/18 at 14:25; Stop 02/01/18 at 14:26; Status DC Bacitracin (Bacitracin) 50,000 unit STK-MED ONCE IRR Last administered on at 14:55; Start 02/01/18 at 13:32; Stop 02/01/18 at 14:32; Status DC Vancomycin HCl 500 mg/Sodium Chloride 100 ml @ 100 mls/hr [id number] IV Last administered on 02/02/18at 16:15; Start 02/02/18 at 16:00; Stop 02/04/18 at 12: 02; Status DC Sodium Chloride 1,000 ml @ 1,000 mls/hr Q1H PRN IV hypotension; Start 02/02/18 at 09:39; Stop 02/02/18 at 15:38; Status DC Albumin Human 200 ml @ 200 mls/hr 1X PRN PRN IV Hypotension; Start 02/02/18 at 09:45; Stop 02/02/18 at 15:44; Status DC Sodium Chloride 1,000 ml @ 400 mls/hr Q2H30M PRN IV PATENCY; Start 02/02/18 at 09:39; Stop 02/02/18 at 21:38; Status DC Info (PHARMACY MONITORING -- do not chart) 1 each PRN DAILY PRN MC SEE COMMENTS ; Start 02/02/18 at 09:45; Stop 02/04/18 at 07:28; Status DC Info (PHARMACY MONITORING -- do not chart) 1 each PRN DAILY PRN MC SEE COMMENTS ; Start 02/02/18 at 09:45; Status UNV Prochlorperazine Edisylate (Compazine) 10 mg PRN Q6HRS PRN IV NAUSEA/VOMITING 2ND CHOICE Last administered on 02/10/18at 23:06; Start 02/02/18 at 11:30 Vancomycin HCl (Vanco Per Pharmacy) 1 each PRN DAILY PRN MC SEE COMMENTS Last administered on 02/02/18at 13:57; Start 02/02/18 at 14:00; Stop 02/04/18 at 12: 02; Status DC Famotidine (Pepcid Vial) 20 mg DAILY IVP Last administered on 02/08/18at 09:00 ; Start 02/03/18 at 10:00; Stop 02/08/18 at 11:45; Status DC Alteplase, Recombinant (Cathflo) 2 mg 1X ONCE INT CAT Last administered on 03/14at 02:56; Start 02/04/18 at 03:00; Stop 02/04/18 at 03:01; Status DC Sodium Chloride 1,000 ml @ 1,000 mls/hr Q1H PRN IV hypotension; Start at 07:15; Stop 02/04/18 at 13:14; Status DC Albumin Human 200 ml @ 200 mls/hr 1X PRN PRN IV Hypotension Last administered on 02/04/18at 11:26; Start 02/04/18 at 07:15; Stop 02/04/18 at 13:14; Status DC Acetaminophen (Tylenol) 500 mg 1X PRN PRN PO MILD PAIN / TEMP; Start 02/04/18 at 07:15; Stop 02/05/18 at 07:14; Status DC Diphenhydramine HCl (Benadryl) 25 mg 1X PRN PRN IV ITCHING; Start 02/04/18 at 07:15; Stop 02/05/18 at 07:14; Status DC Diphenhydramine HCl (Benadryl) 25 mg 1X PRN PRN IV ITCHING; Start 02/04/18 at 07:15; Stop 02/05/18 at 07:14; Status DC Sodium Chloride 1,000 ml @ 400 mls/hr Q2H30M PRN IV PATENCY; Start 02/04/18 at 07:15; Stop 02/04/18 at 19:14; Status DC Info (PHARMACY MONITORING -- do not chart) 1 each PRN DAILY PRN MC SEE COMMENTS ; Start 02/04/18 at 07:15; Status Cancel Lidocaine HCl (Xylocaine-Mpf 2% Vial) 2 ml STK-MED ONCE .ROUTE ; Start at 09:43; Stop 02/04/18 at 09:44; Status DC Docusate Sodium (Colace) 100 mg PRN DAILY PRN PO CONSTIPATION Last administered on 02/07/18at 22:13; Start 02/04/18 at 10:30 Ceftriaxone Sodium 2 gm/ Dextrose 100 ml @ 200 mls/hr Q24H IV Last administered on 02/04/18at 14:24; Start 02/04/18 at 13:00; Stop 02/05/18 at 11 :49; Status DC Morphine Sulfate (Morphine Sulfate) 1 mg PRN Q10MIN PRN IV SEVERE PAIN; Start 02/05/18 at 07:00; Stop 02/06/18 at 06:59; Status DC Ringer's Solution 1,000 ml @ 30 mls/hr Q24H IV ; Start 02/05/18 at 07:00; Stop 02/05/18 at 18:59; Status DC Lidocaine HCl (Xylocaine-Mpf 1% 2ml Vial) 2 ml PRN 1X PRN ID IV START; Start 02/05/18 at 07:00; Stop 02/06/18 at 06:59; Status DC Hydromorphone HCl (Dilaudid) 0.5 mg PRN Q10MIN PRN IV SEV PAIN, Second choice; Start 02/05/18 at 07:00; Stop 02/06/18 at 06:59; Status DC Prochlorperazine Edisylate (Compazine) 5 mg PACU PRN PRN IV NAUSEA, MRX1; Start 02/05/18 at 07:00; Stop 02/06/18 at 06:59; Status DC Lidocaine HCl (Xylocaine-Mpf 2% Vial) 2 ml STK-MED ONCE .ROUTE ; Start at 10:00; Stop 02/05/18 at 08:19; Status DC Sodium Chloride 1,000 ml @ 75 mls/hr [id number] IV Last administered on at 07:00; Start 02/05/18 at 10:30; Stop 02/08/18 at 15:20; Status DC Cefepime HCl 1 gm/ Dextrose 50 ml @ 100 mls/hr DAILY IV ; Start 02/06/18 at 09 :00; Status UNV Vancomycin HCl (Vanco Per Pharmacy) 1 each PRN DAILY PRN MC SEE COMMENTS Last administered on 02/08/18at 14:35; Start 02/05/18 at 12:00; Stop 02/09/18 at 09 :50; Status DC Cefepime HCl (Maxipime) 1 gm Q24H IVP Last administered on 02/08/18at 14:49; Start 02/05/18 at 12:00; Stop 02/09/18 at 09:35; Status DC Propofol 20 ml @ As Directed STK-MED ONCE IV ; Start 02/05/18 at 12:08; Stop 02/05/18 at 12:09; Status DC Lidocaine HCl (Xylocaine-Mpf 2% Vial) 2 ml STK-MED ONCE .ROUTE ; Start at 12:08; Stop 02/05/18 at 12:09; Status DC Vancomycin HCl 1.5 gm/Sodium Chloride 500 ml @ 250 mls/hr 1X ONCE IV Last administered on 02/05/18at 14:05; Start 02/05/18 at 14:00; Stop 02/05/18 at 15 :59; Status DC Vancomycin HCl (Vancomycin Random Level) 1 each 1X ONCE MC Last administered on 02/06/18at 05:00; Start 02/06/18 at 05:00; Stop 02/06/18 at 05:01; Status DC Sodium Chloride 1,000 ml @ 1,000 mls/hr Q1H PRN IV hypotension; Start at 08:12; Stop 02/06/18 at 14:11; Status DC Sodium Chloride 1,000 ml @ 400 mls/hr Q2H30M PRN IV PATENCY; Start 02/06/18 at 08:12; Stop 02/06/18 at 20:11; Status DC Info (PHARMACY MONITORING -- do not chart) 1 each PRN DAILY PRN MC SEE COMMENTS ; Start 02/06/18 at 08:15; Status UNV Info (PHARMACY MONITORING -- do not chart) 1 each PRN DAILY PRN MC SEE COMMENTS ; Start 02/06/18 at 08:15; Status UNV Lidocaine HCl (Xylocaine-Mpf 1% 2ml Vial) 2 ml 1X ONCE ID Last administered on 02/06/18at 08:30; Start 02/06/18 at 08:30; Stop 02/06/18 at 08:31; Status DC Lidocaine HCl (Xylocaine-Mpf 2% Vial) 2 ml STK-MED ONCE .ROUTE ; Start at 08:32; Stop 02/06/18 at 08:33; Status DC Diphenhydramine HCl (Benadryl) 50 mg 1X ONCE IVP Last administered on at 09:10; Start 02/06/18 at 09:00; Stop 02/06/18 at 09:02; Status DC Vancomycin HCl (Vancomycin Random Level) 1 each 1X ONCE MC Last administered on 02/08/18at 05:00; Start 02/08/18 at 05:00; Stop 02/08/18 at 05:01; Status DC Lidocaine HCl (Xylocaine-Mpf 2% Vial) 2 ml STK-MED ONCE .ROUTE ; Start at 09:00; Stop 02/08/18 at 07:54; Status DC Polyethylene Glycol (miraLAX PACKET) 17 gm DAILY PO Last administered on at 08:56; Start 02/08/18 at 12:30 Famotidine (Pepcid) 20 mg QHS PO Last administered on 02/10/18at 20:15; Start 02/08/18 at 21:00 Vancomycin HCl 500 mg/Sodium Chloride 100 ml @ 100 mls/hr QTUTHSA IV ; Start 02/09/18 at 16:00; Stop 02/09/18 at 16:00; Status DC Sodium Chloride 1,000 ml @ 1,000 mls/hr Q1H PRN IV hypotension; Start at 08:21; Stop 02/09/18 at 14:20; Status DC Sodium Chloride 1,000 ml @ 400 mls/hr Q2H30M PRN IV PATENCY; Start 02/09/18 at 08:21; Stop 02/09/18 at 20:20; Status DC Info (PHARMACY MONITORING -- do not chart) 1 each PRN DAILY PRN MC SEE COMMENTS ; Start 02/09/18 at 08:30; Status UNV Info (PHARMACY MONITORING -- do not chart) 1 each PRN DAILY PRN MC SEE COMMENTS ; Start 02/09/18 at 08:30 Diphenhydramine HCl (Benadryl) 50 mg 1X ONCE IVP Last administered on at 09:06; Start 02/09/18 at 08:30; Stop 02/09/18 at 08:31; Status DC Lidocaine HCl (Xylocaine-Mpf 2% Vial) 2 ml STK-MED ONCE .ROUTE ; Start at 08:40; Stop 02/09/18 at 08:41; Status DC Linezolid/Dextrose 300 ml @ 300 mls/hr Q12HR IV Last administered on at 23:11; Start 02/09/18 at 10:00 Gentamicin Sulfate 1 each PRN DAILY PRN MC SEE COMMENTS Last administered on at 12:53; Start 02/09/18 at 09:30 Metronidazole 100 ml @ 100 mls/hr Q8HRS IV Last administered on 02/11/18at 07: 34; Start 02/09/18 at 14:00 Gentamicin Sulfate 140 mg/ Dextrose 103.5 ml @ 207 mls/hr 1X ONCE IV Last administered on 02/09/18at 12:26; Start 02/09/18 at 12:00; Stop 02/09/18 at 12 :29; Status DC Lubiprostone (Amitiza) 8 mcg BIDWMEALS PO Last administered on 02/10/18at 17:23 ; Start 02/09/18 at 17:00 Gentamicin Sulfate 1 each 1X ONCE MC Last administered on 02/11/18at 06:00; Start 02/11/18 at 06:00; Stop 02/11/18 at 06:01; Status DC Hydromorphone HCl (Dilaudid) 2 mg 1X ONCE IV ; Start 02/10/18 at 10:30; Stop 02/10/18 at 10:31; Status DC Lidocaine HCl (Xylocaine-Mpf 2% Vial) 2 ml STK-MED ONCE .ROUTE ; Start at 09:00; Stop 02/10/18 at 13:19; Status DC Alteplase, Recombinant (Cathflo) 2 mg 1X ONCE INT CAT Last administered on at 22:18; Start 02/10/18 at 21:30; Stop 02/10/18 at 21:31; Status DC Silver Sulfadiazine (Silvadene) 25 susanna STK-MED ONCE TP ; Start 02/11/18 at 05: 56; Stop 02/11/18 at 06:57; Status DC Lidocaine HCl (Xylocaine 1% Pf 30ml Vial) 30 ml STK-MED ONCE .ROUTE ; Start at 05:57; Stop 02/11/18 at 06:58; Status DC Ondansetron HCl (Zofran) 4 mg PRN Q6HRS PRN IV NAUSEA/VOMITING; Start at 07:15; Stop 02/11/18 at 12:42; Status DC Fentanyl Citrate (Fentanyl 2ml Vial) 25 mcg PRN Q5MIN PRN IV MILD PAIN; Start 02/11/18 at 07:15; Stop 02/11/18 at 12:39; Status DC Fentanyl Citrate (Fentanyl 2ml Vial) 50 mcg PRN Q5MIN PRN IV MODERATE TO SEVERE PAIN; Start 02/11/18 at 07:15; Stop 02/11/18 at 12:40; Status DC Morphine Sulfate (Morphine Sulfate) 1 mg PRN Q10MIN PRN IV SEVERE PAIN; Start 02/11/18 at 07:15; Stop 02/11/18 at 12:41; Status DC Ringer's Solution 1,000 ml @ 30 mls/hr Q24H IV ; Start 02/11/18 at 07:15; Stop 02/11/18 at 19:14; Status Cancel Lidocaine HCl (Xylocaine-Mpf 1% 2ml Vial) 2 ml PRN 1X PRN ID PRIOR TO IV START ; Start 02/11/18 at 07:15; Stop 02/11/18 at 12:40; Status DC Hydromorphone HCl (Dilaudid) 0.5 mg PRN Q10MIN PRN IV SEV PAIN, Second choice; Start 02/11/18 at 07:15; Stop 02/11/18 at 12:40; Status DC Prochlorperazine Edisylate (Compazine) 5 mg PACU PRN PRN IV NAUSEA, MRX1; Start 02/11/18 at 07:15; Stop 02/11/18 at 12:42; Status DC Sodium Chloride 1,000 ml @ 75 mls/hr [id number] IV Last administered on at 07:33; Start 02/11/18 at 07:30 Propofol 20 ml @ As Directed STK-MED ONCE IV ; Start 02/11/18 at 07:20; Stop 02/11/18 at 07:21; Status DC Dexamethasone Sodium Phosphate (Decadron) 20 mg STK-MED ONCE .ROUTE ; Start at 07:20; Stop 02/11/18 at 07:21; Status DC Famotidine (Pepcid Vial) 20 mg STK-MED ONCE .ROUTE ; Start 02/11/18 at 07:20; Stop 02/11/18 at 07:21; Status DC Lidocaine HCl (Lidocaine Pf 2% Vial) 5 ml STK-MED ONCE .ROUTE ; Start 02/11/18 at 07:20; Stop 02/11/18 at 07:21; Status DC Ondansetron HCl (Zofran) 4 mg STK-MED ONCE .ROUTE ; Start 02/11/18 at 07:20; Stop 02/11/18 at 07:21; Status DC Fentanyl Citrate (Fentanyl 2ml Vial) 100 mcg STK-MED ONCE .ROUTE ; Start at 07:20; Stop 02/11/18 at 07:21; Status DC Midazolam HCl (Versed) 2 mg STK-MED ONCE .ROUTE ; Start 02/11/18 at 07:21; Stop 02/11/18 at 07:22; Status DC Ephedrine Sulfate (ePHEDrine PF IN SALINE SYRINGE) 50 mg STK-MED ONCE IV ; Start 02/11/18 at 08:22; Stop 02/11/18 at 08:23; Status DC Desflurane (Suprane) 30 ml STK-MED ONCE IH ; Start 02/11/18 at 08:41; Stop at 08:42; Status DC Sodium Chloride 1,000 ml @ 1,000 mls/hr Q1H PRN IV hypotension; Start at 09:57; Stop 02/11/18 at 15:56 Albumin Human 200 ml @ 200 mls/hr 1X PRN PRN IV Hypotension; Start 02/11/18 at 10:00; Stop 02/11/18 at 15:59 Sodium Chloride 1,000 ml @ 400 mls/hr Q2H30M PRN IV PATENCY; Start 02/11/18 at 09:57; Stop 02/11/18 at 21:56 Info (PHARMACY MONITORING -- do not chart) 1 each PRN DAILY PRN MC SEE COMMENTS ; Start 02/11/18 at 10:00; Status UNV Info (PHARMACY MONITORING -- do not chart) 1 each PRN DAILY PRN MC SEE COMMENTS ; Start 02/11/18 at 10:00; Status UNV Lidocaine HCl (Xylocaine-Mpf 1% 2ml Vial) 2 ml 1X ONCE INJ ; Start 02/11/18 at 10:00; Stop 02/11/18 at 10:13; Status DC Gentamicin Sulfate 100 mg/ Dextrose 52.5 ml @ 105 mls/hr QTUTHSA IV ; Start at 16:00 Gentamicin Sulfate 1 each 1X ONCE MC ; Start 02/13/18 at 05:00; Stop at 05:01 Lidocaine HCl (Xylocaine-Mpf 2% Vial) 2 ml STK-MED ONCE .ROUTE ; Start at 13:22; Stop 02/11/18 at 13:23; Status DC Active Scripts Active Percocet 10-325 Mg Tablet (Oxycodone/Acetaminophen) 1 Each Tablet 1 Tab PO Q4HRS Brilinta (Ticagrelor) 90 Mg Tablet 90 Mg PO BID 30 Days Morphine Sulfate Er (Morphine Sulfate) 15 Mg Tablet.er 15 Mg PO BID Reported Brilinta (Ticagrelor) 90 Mg Tablet 90 Mg PO BID Lidocaine 1 Each Adh..patch 1 Each TP PRN DAILY PRN Calcitriol 0.25 Mcg Capsule 1 Cap PO DAILY Tegretol (Carbamazepine) 200 Mg Tablet 1 Tab PO BID Tramadol Hcl 50 Mg Tablet 50 Mg PO Q4HRS PRN Lantus Solostar (Insulin Glargine,Hum.rec.anlog) 100 Unit/1 Ml Insuln.pen 22 Unit SQ QHS Diflucan (Fluconazole) 100 Mg Tablet 100 Mg PO PRN Carvedilol 3.125 Mg Tablet 12.5 Mg PO BID Erythromycin (Erythromycin Base) 250 Mg Capsule.dr 250 Mg PO BID Cardizem Cd (Diltiazem Hcl) 180 Mg Cap.er.24h 120 Mg PO DAILY Amiodarone Hcl 200 Mg Tablet 1 Tab PO DAILY Nystatin 15 Gm Powder 1 Susanna TP PRN BID PRN Proventil Hfa Inhaler (Albuterol Sulfate) 6.7 Gm Hfa.aer.ad 2 Puff IH BID PRN Zofran (Ondansetron Hcl) 4 Mg Tablet 4 Mg PO Q6-8HRS PRN Nephro-Shabbir Tablet (Folic Acid/Vitamin B Comp W-C) 0.8 Mg Tablet 1 Tab PO DAILY Tricor (Fenofibrate Nanocrystallized) 145 Mg Tablet 1 Tab PO HS Lipitor (Atorvastatin Calcium) 80 Mg Tablet 80 Mg PO HS Niacin 500 Mg Tablet 500 Mg PO HS Novolog (Insulin Aspart) 100 Unit/1 Ml Cartridge 0 SQ TIDAC sliding scale Aspirin 325 Mg Tablet 325 Mg PO DAILY Furosemide 80 Mg Tablet 80 Mg PO BID Docusate Sodium 100 Mg Capsule 1 Cap PO PRN PRN Nitrostat (Nitroglycerin) 0.4 Mg Tab.subl 0.4 Mg SL PRN Q5MIN PRN Take as needed for chest pain Vitals/I & O Vital Sign - Last 24 Hours 02/10/18 02/10/18 02/10/18 02/10/18 14:33 15:00 15:03 17:23 Temp 98.1 98.1 Pulse 72 72 Resp 18 B/P (MAP) 135/48 (77) 135/48 Pulse Ox 100 O2 Delivery Room Air 4L Room Air 02/10/18 02/10/18 02/10/18 02/10/18 17:24 18:24 19:15 20:00 Temp 98.2 98.2 Pulse 70 Resp 18 B/P (MAP) 130/54 (79) Pulse Ox 99 O2 Delivery Room Air Room Air Room Air Nasal Cannula O2 Flow Rate 2.0 02/10/18 02/10/18 02/11/18 02/11/18 20:15 23:16 00:15 05:44 Temp 98.1 98.1 Pulse 68 Resp 18 B/P (MAP) 123/51 (75) Pulse Ox 97 O2 Delivery Room Air Room Air Room Air Room Air 02/11/18 02/11/18 02/11/18/18/18 06:59 08:49 09:00 09:04 Temp 97.1 97.4 97.4 97.1 97.4 97.4 Pulse 67 62 61 Resp 14 16 16 B/P (MAP) 112/54 99/46 112/50 Pulse Ox 100 100 100 O2 Delivery Nasal Cannula Simple Mask Mask Simple Mask O2 Flow Rate 2.0 8 8 8 02/11/18 02/11/18 02/11/18 02/11/18 09:19 09:34 09:49 11:46 Temp 97.4 97.4 97.2 97.4 97.4 97.2 Pulse 62 62 64 Resp 16 16 17 B/P (MAP) 119/55 122/59 129/60 Pulse Ox 100 100 96 O2 Delivery Simple Mask Nasal Cannula Nasal Cannula Room Air O2 Flow Rate 8 2 2 Intake and Output 02/10/18 02/10/18 02/11/18 15:00 23:00 07:00 Intake Total 600 ml 1300 ml Output Total 20 ml Balance 600 ml 1300 ml -20 ml QUIN BARRY MD Feb 11, 2018 13:56
--- NOTE | 2018-02-11 19:11 | PDOC ---
PROGRESS NOTES Assessment Assessment Bilateral vision decrease x 2 weeks, worse x 4 days before admission. Diabetic retinal disease. Renal failure. DM x 30 years. CAD, s/p CABG. Anemia. Left BKA. Wounds. Right fem-pop bypass. RECOMMENDATIONS/PLAN: Continue ASA daily. Continue Lipitor HS. Control hyperglycemia. Treat medical diseases. See Ophthalmology. Past Medical History Cardiovascular: AFib, CAD, CHF, HTN, ME, Hyperlipidemia, Other (heart murmur, peripheral vascular disease, deep venous thrombosis) Pulmonary: Asthma, Bronchitis, COPD, Pneumonia, Other (sleep apnea) CENTRAL NERVOUS SYSTEM: Peripheral neuropathy GI: Irritable bowel disease, Peptic Ulcer disease, Other (C. difficile) Psych: Anxiety, Depression Musculoskeletal: low back pain (and neck pain), Osteoarthritis Rheumatologic: Fibromyalgia Renal/: Chronic renal failure (dialysis) Endocrine: Diabetes Dermatology: Other (various wounds, MRSA, VRE) Past Surgical History CABG, Cataract Removal, Hysterectomy, Other (Arnold-Chiari malformation repair, left below the knee application, right femoropopliteal bypass, arteriovenous shunt, coronary stent, right second and third toes amputations, arthroscopic knee surgery) Family History Cancer, CAD, DM Social History , quit smoking, rare alcohol, disabled, gets around in a wheelchair ALLERGY: Reviewed. MEDICATIONS: Refer to MAR REVIEW OF SYSTEMS: Constitutional: No malnutrition, weight loss, cachexia. Head: No traumatic brain or head injury. Skin: No edema, or rash. Ear: No infection. Eyes: Vision loss. Nose: No bleeding or purulent discharges. Hearing: No hearing decrease. Neck: No injury. Breast: No history of cancer, masses, or discharges. Cardiac: CAD, s/p CABG, HLD Pulmonary: No COPD.. GI: No GI Ulcer, GI bleeding. Urinary/genital: Renal failure. Endocrine: Diabetes Mellitus. Skeletomuscular: No muscular atrophy, deformity. Neurological: see HP. Psychiatric: Denies drug use/abuse. Otherwise, not [id number] review of systems. PHYSICAL EXAMINATION: General appearance in no acute distress. HEENT: Normocephalic and nontraumatic. Eyes, nose, ears, and throat are unremarkable. Neck is supple. No lymphadenopathy. No Crepitus. Cardiovascular: S1, S2, regular rate and rhythm. Pulmonary: Clear to auscultation bilaterally. Abdomen: Bowel sounds are positive. Abdomen is soft, nontender, and nondistended. Extremities: No rash, lesions. No restriction of range of motion NEUROLOGICAL EXAMINATION: Awake. Oriented to time, place and person. PERRL. EOMI. Can see items within 2 feet. CN: no focal findings. Muscle tone: within normal. Muscle strength: 4+ DTR: 2- UE and right LE. Plantar reflex: Neutral response on right side. Left BKA. Gait: Unable to walk. Sensory exam: no abnormal findings. No acute cerebellar signs elicited. F-T-N test fine. Objective Objective Vital Signs Date Time Temp Pulse Resp B/P (MAP) Pulse Ox O2 Delivery O2 Flow Rate FiO2 02/11/18 17:59 64 129/60 02/11/18 15:30 Room Air 02/11/18 11:46 96 02/11/18 09:49 97.2 17 2 97.2 Intake and Output 02/11/18 07:00 Intake Total 1900 ml Output Total 20 ml Balance 1880 ml Intake Oral 1900 ml Emesis 20 ml Vitals Signs Vitals VS - Last 72 Hours, by Label Date Time Temp Pulse Resp B/P (MAP) Pulse Ox O2 Delivery O2 Flow Rate FiO2 02/11/18 17:59 64 129/60 02/11/18 15:30 Room Air 02/11/18 11:46 96 Room Air 02/11/18 09:49 97.2 64 17 129/60 100 Nasal Cannula 2 97.2 02/11/18 09:34 97.4 62 16 122/59 100 Nasal Cannula 2 97.4 02/11/18 09:19 97.4 62 16 119/55 Simple Mask 8 97.4 02/11/18 09:04 97.4 61 16 112/50 100 Simple Mask 8 97.4 02/11/18 09:00 Mask 8 02/11/18 08:49 97.4 62 16 99/46 100 Simple Mask 8 97.4 02/11/18 06:59 97.1 67 14 112/54 100 Nasal Cannula 2.0 97.1 02/11/18 05:44 Room Air 02/11/18 00:15 Room Air 02/10/18 23:16 98.1 68 18 123/51 (75) 97 Room Air 98.1 02/10/18 20:15 Room Air 02/10/18 20:00 Nasal Cannula 2.0 02/10/18 19:15 98.2 70 18 130/54 (79) 99 Room Air 98.2 02/10/18 18:24 Room Air 02/10/18 17:24 Room Air 02/10/18 17:23 72 135/48 02/10/18 15:03 Room Air 02/10/18 15:00 98.1 72 18 135/48 (77) 100 4L 98.1 02/10/18 14:33 Room Air 02/10/18 11:00 98.0 69 18 129/49 (75) 99 4l 98.0 02/10/18 10:06 Room Air 02/10/18 09:00 62 105/43 02/10/18 08:56 Room Air 02/10/18 08:00 Room Air 02/10/18 08:00 69 129/49 02/10/18 07:00 98.0 62 18 105/43 (63) 99 4L 98.0 Laboratory Laboratory Laboratory Tests Test 02/10/18 23:38 02/11/18 05:42 02/11/18 08:56 02/11/18 11:53 Glucose (Fingerstick) 125 mg/dL (70-99) 107 mg/dL (70-99) 119 mg/dL (70-99) White Blood Count 14.0 x10^3/uL (4.0-11.0) Red Blood Count 2.48 x10^6/uL (3.50-5.40) Hemoglobin 8.1 g/dL (12.0-15.5) Hematocrit 23.5 % (36.0-47.0) Mean Corpuscular Volume 95 fL (79-100) Mean Corpuscular Hemoglobin 33 pg (25-35) Mean Corpuscular Hemoglobin Concent 34 g/dL (31-37) Red Cell Distribution Width 17.7 % (11.5-14.5) Platelet Count 361 x10^3/uL (140-400) Neutrophils (%) (Auto) 88 % (31-73) Lymphocytes (%) (Auto) 4 % (24-48) Monocytes (%) (Auto) 7 % (0-9) Eosinophils (%) (Auto) 0 % (0-3) Basophils (%) (Auto) 0 % (0-3) Neutrophils # (Auto) 12.3 x10^3uL (1.8-7.7) Lymphocytes # (Auto) 0.6 x10^3/uL (1.0-4.8) Monocytes # (Auto) 1.0 x10^3/uL (0.0-1.1) Eosinophils # (Auto) 0.0 x10^3/uL (0.0-0.7) Basophils # (Auto) 0.1 x10^3/uL (0.0-0.2) Sodium Level 135 mmol/L (136-145) Potassium Level 3.7 mmol/L (3.5-5.1) Chloride Level 99 mmol/L (98-107) Carbon Dioxide Level 27 mmol/L (21-32) Anion Gap 9 (6-14) Blood Urea Nitrogen 21 mg/dL (7-20) Creatinine 4.7 mg/dL (0.6-1.0) Estimated GFR (Cockcroft-Gault) 9.8 BUN/Creatinine Ratio 4 (6-20) Glucose Level 124 mg/dL (70-99) Calcium Level 8.4 mg/dL (8.5-10.1) Total Bilirubin 0.5 mg/dL (0.2-1.0) Aspartate Amino Transf (AST/SGOT) 13 U/L (15-37) Alanine Aminotransferase (ALT/SGPT) 13 U/L (14-59) Alkaline Phosphatase 92 U/L (46-116) Total Protein 5.1 g/dL (6.4-8.2) Albumin 2.0 g/dL (3.4-5.0) Albumin/Globulin Ratio 0.6 (1.0-1.7) Random Gentamicin Level 3.6 mcg/mL Microbiology 02/06/18 Blood Culture - Final, Complete NO GROWTH AFTER 5 DAYS 01/27/18 Anaerobic/Aerobic Culture - Final, Complete 01/27/18 Anaerobic Culture Result 1 (ROSALIND) - Final, Complete 01/27/18 Aerobic Culture - Final, Complete 01/27/18 Aerobic Culture Result 1 (ROSALIND) - Final, Complete 01/27/18 Antimicrobic Susceptibility - Final, Complete 01/27/18 Gram Stain - Final, Complete 01/27/18 Gram Stain Result 1 (ROSALIND) - Final, Complete 01/27/18 Gram Stain Result 2 (ROSALIND) - Final, Complete Medication Medications Current Medications Albumin Human 200 ml @ 200 mls/hr 1X PRN PRN IV Hypotension; Start 02/11/18 at 10:00; Stop 02/11/18 at 15:59; Status DC Alteplase, Recombinant (Cathflo) 2 mg 1X ONCE INT CAT Last administered on at 22:18; Start 02/10/18 at 21:30; Stop 02/10/18 at 21:31; Status DC Desflurane (Suprane) 30 ml STK-MED ONCE IH ; Start 02/11/18 at 08:41; Stop at 08:42; Status DC Dexamethasone Sodium Phosphate (Decadron) 20 mg STK-MED ONCE .ROUTE ; Start at 07:20; Stop 02/11/18 at 07:21; Status DC Ephedrine Sulfate (ePHEDrine PF IN SALINE SYRINGE) 50 mg STK-MED ONCE IV ; Start 02/11/18 at 08:22; Stop 02/11/18 at 08:23; Status DC Famotidine (Pepcid Vial) 20 mg STK-MED ONCE .ROUTE ; Start 02/11/18 at 07:20; Stop 02/11/18 at 07:21; Status DC Fentanyl Citrate (Fentanyl 2ml Vial) 25 mcg PRN Q5MIN PRN IV MILD PAIN; Start 02/11/18 at 07:15; Stop 02/11/18 at 12:39; Status DC Fentanyl Citrate (Fentanyl 2ml Vial) 50 mcg PRN Q5MIN PRN IV MODERATE TO SEVERE PAIN; Start 02/11/18 at 07:15; Stop 02/11/18 at 12:40; Status DC Fentanyl Citrate (Fentanyl 2ml Vial) 100 mcg STK-MED ONCE .ROUTE ; Start at 07:20; Stop 02/11/18 at 07:21; Status DC Gentamicin Sulfate 100 mg/ Dextrose 52.5 ml @ 105 mls/hr QTUTHSA IV ; Start at 16:00 Gentamicin Sulfate 1 each 1X ONCE MC Last administered on 02/11/18at 06:00; Start 02/11/18 at 06:00; Stop 02/11/18 at 06:01; Status DC Gentamicin Sulfate 1 each 1X ONCE MC ; Start 02/13/18 at 05:00; Stop at 05:01 Hydromorphone HCl (Dilaudid) 0.5 mg PRN Q10MIN PRN IV SEV PAIN, Second choice; Start 02/11/18 at 07:15; Stop 02/11/18 at 12:40; Status DC Info (PHARMACY MONITORING -- do not chart) 1 each PRN DAILY PRN MC SEE COMMENTS ; Start 02/11/18 at 10:00; Status UNV Info (PHARMACY MONITORING -- do not chart) 1 each PRN DAILY PRN MC SEE COMMENTS ; Start 02/11/18 at 10:00; Status UNV Lidocaine HCl (Lidocaine Pf 2% Vial) 5 ml STK-MED ONCE .ROUTE ; Start 02/11/18 at 07:20; Stop 02/11/18 at 07:21; Status DC Lidocaine HCl (Xylocaine 1% Pf 30ml Vial) 30 ml STK-MED ONCE .ROUTE ; Start at 05:57; Stop 02/11/18 at 06:58; Status DC Lidocaine HCl (Xylocaine-Mpf 1% 2ml Vial) 2 ml 1X ONCE INJ ; Start 02/11/18 at 10:00; Stop 02/11/18 at 10:13; Status DC Lidocaine HCl (Xylocaine-Mpf 1% 2ml Vial) 2 ml PRN 1X PRN ID PRIOR TO IV START ; Start 02/11/18 at 07:15; Stop 02/11/18 at 12:40; Status DC Lidocaine HCl (Xylocaine-Mpf 2% Vial) 2 ml STK-MED ONCE .ROUTE ; Start at 13:22; Stop 02/11/18 at 13:23; Status DC Midazolam HCl (Versed) 2 mg STK-MED ONCE .ROUTE ; Start 02/11/18 at 07:21; Stop 02/11/18 at 07:22; Status DC Morphine Sulfate (Morphine Sulfate) 1 mg PRN Q10MIN PRN IV SEVERE PAIN; Start 02/11/18 at 07:15; Stop 02/11/18 at 12:41; Status DC Ondansetron HCl (Zofran) 4 mg PRN Q6HRS PRN IV NAUSEA/VOMITING; Start at 07:15; Stop 02/11/18 at 12:42; Status DC Ondansetron HCl (Zofran) 4 mg STK-MED ONCE .ROUTE ; Start 02/11/18 at 07:20; Stop 02/11/18 at 07:21; Status DC Prochlorperazine Edisylate (Compazine) 5 mg PACU PRN PRN IV NAUSEA, MRX1; Start 02/11/18 at 07:15; Stop 02/11/18 at 12:42; Status DC Propofol 20 ml @ As Directed STK-MED ONCE IV ; Start 02/11/18 at 07:20; Stop 02/11/18 at 07:21; Status DC Ringer's Solution 1,000 ml @ 30 mls/hr Q24H IV ; Start 02/11/18 at 07:15; Stop 02/11/18 at 19:14; Status Cancel Silver Sulfadiazine (Silvadene) 25 erich STK-MED ONCE TP ; Start 02/11/18 at 05: 56; Stop 02/11/18 at 06:57; Status DC Sodium Chloride 1,000 ml @ 75 mls/hr [id number] IV Last administered on at 07:33; Start 02/11/18 at 07:30 Sodium Chloride 1,000 ml @ 400 mls/hr Q2H30M PRN IV PATENCY; Start 02/11/18 at 09:57; Stop 02/11/18 at 21:56 Sodium Chloride 1,000 ml @ 1,000 mls/hr Q1H PRN IV hypotension; Start at 09:57; Stop 02/11/18 at 15:56; Status DC Comment Review of Relevant I have reviewed the following items bert (where applicable) has been applied. KRAIG HUNT MD Feb 11, 2018 19:11
[2018-02-11] MEDS: DEXTROSE 5% IV SCH (19:31)
[2018-02-11] MEDS: GENTAMICIN SULFATE IV SCH (19:31)
[2018-02-11] MEDS: FENOFIBRATE,MICRONIZED 134 MG CAPSULE PO SCH (20:58)
[2018-02-11] MEDS: FAMOTIDINE 20 MG TABLET. PO SCH (20:59)
[2018-02-11] MEDS: NIACIN ER 500 MG TABLET.ER PO SCH (20:59)
[2018-02-11] MEDS: INSULIN GLARGINE 300 UNITS/3 ML INSULN.PEN. SQ SCH (21:00)
[2018-02-11] MEDS: ATORVASTATIN CALCIUM 40 MG TABLET. PO SCH (21:04)
[2018-02-11] MEDS: PATCH REMOVAL. MC SCH (21:05)
[2018-02-11 23:39] VITALS: BP 123/52
[2018-02-12 06:06] LABS: BASO % 0 % (0-3); EOS % 0 % (0-3); HEMATOCRIT 22.3 % (36.0-47.0); HEMOGLOBIN 7.4 g/dL (12.0-15.5); LYMPH # 1.1 x10^3/uL (1.0-4.8); LYMPH % 10 % (24-48); MEAN CORPUSCULAR HEMOGLOBIN 32 pg (25-35); MEAN CORPUSCULAR HGB CONC 33 g/dL (31-37); MEAN CORPUSCULAR VOLUME 95 fL (79-100); MONO # 1.2 x10^3/uL (0.0-1.1); MONO % 11 % (0-9); NEUT # 8.7 x10^3uL (1.8-7.7); NEUT % 79 % (31-73); PLATELET COUNT 341 x10^3/uL (140-400); RED BLOOD COUNT 2.35 x10^6/uL (3.50-5.40); RED CELL DISTRIBUTION WIDTH 17.8 % (11.5-14.5)
[2018-02-12 06:20] LABS: CALCIUM 8.4 mg/dL (8.5-10.1); CREATININE 3.1 mg/dL (0.6-1.0); GFR 15.8; POTASSIUM 3.4 mmol/L (3.5-5.1)
[2018-02-12] MEDS: HYDROmorphone 2 MG/ML VIAL IV PRN ×4 (06:55→21:10)
[2018-02-12] MEDS: INSULIN LISPRO 300 UNITS/3 ML INSULN.PEN. SQ SCH ×3 (08:00→17:48)
[2018-02-12] MEDS: TICAGRELOR 90 MG TABLET. PO SCH ×2 (09:00→21:09)
[2018-02-12] MEDS: POLYETHYLENE GLYCOL 3350 17 GM PACKET. PO SCH (09:00)
[2018-02-12] MEDS: IV NORMAL SALINE 1000ML BAG 1,000 ML IV SCH ×2 (09:56→10:10)
[2018-02-12] MEDS: LUBIPROSTONE 8 MCG CAPSULE PO SCH ×2 (09:57→17:43)
[2018-02-12] MEDS: LACTOBACILLUS RHAMNOSUS GG 1 CAPSULE. PO SCH ×2 (09:57→21:09)
[2018-02-12] MEDS: CALCITRIOL 0.25 MCG CAPSULE. PO SCH (09:57)
[2018-02-12] MEDS: MORPHINE ER 15 MG TABLET.ER PO SCH ×2 (09:58→21:08)
[2018-02-12] MEDS: ERYTHROMYCIN BASE 250 MG TABLET PO SCH ×2 (09:58→21:09)
[2018-02-12] MEDS: FUROSEMIDE 80 MG TABLET. PO SCH ×2 (10:04→14:23)
[2018-02-12] MEDS: FOLIC/VIT B COMP W-C (RENAL) TABLET. PO SCH (10:04)
[2018-02-12] MEDS: CARVEDILOL 12.5 MG TABLET. PO SCH ×2 (10:04→17:43)
[2018-02-12] MEDS: ASPIRIN ENTERIC COATED 81 MG TABLET.DR. PO SCH (10:07)
[2018-02-12] MEDS: carBAMazepine 200 MG TABLET PO SCH ×2 (10:07→21:09)
[2018-02-12 11:00] VITALS: BP 117/54
--- NOTE | 2018-02-12 11:33 | PDOC ---
PROGRESS NOTES Chief Complaint Chief Complaint RIght groin sx wound infection s/p i and d 02/01 and 02/05 with wound vac on, wound cx + Kpna recent right leg PAD s/p R fem to pop bypass ESRD on dialysis h/o L BKA CAD w/ hx CABG, EF 50% Diabetic retinopathy Macular degeneration Cataracts H/O CAD with multiple stents Leukocytosis post steroids - trending down Right lower extremity swelling with superficial skin breakdown from injury on with abrasion and subsequent redness and swelling, treated with outpatient Keflex End-stage renal disease, on dialysis via AV fistula here ,at home per pt is on PD. ANTIBIOTIC ALLERGY TO MEROPENEM, PIPERACILLIN AND TAZOBACTAM CAUSING PEELING AND BLEEDING OF THE SKIN. ALSO, SULFA. TOLERATES KEFLEX AND HAS BEEN ON CEFAZOLIN, THOUGH HAS CAUSED ITCHING. H/o recent urinary tract infection, though urine cultures are negative, on Cipro POA for 5 days. A- fib, amiodarone therapy Gastroparesis, E. Mycin Left retinal optic disc drusen, bl blurry vision EGD 02/05 non erosive gatritis decubitus ulcer gastroparesis Distended hydropic gallbladder containing sludge. Hepatomegaly. 1.4 cm lobular lesion along the left renal cortex stable plan: fu with id, vascular, renal, gi on wound vac, wound care changed abx to zyvox, genta, flagyl as per ID. neg bcx so far. wound cx + kPNA cont home meds dvt ppx fu with ophthal as outpt discussed with pt about the US finding, likely no sx intervention needed at this time point given pt has no abd pain and other issues going on, fu with GI, HIDA today talked to wound care, FU WITH vascular , i and d 02/05 again dc select when stable History of Present Illness History of Present Illness Pt seen and examined Dw RN Sitting up right 02/09/18:higher wbc 19, more nausea. has n/o gastroparesis told me has decubitus ulcer, last pic 02/07 looks ok 02/10: wbc better to 14, but there is some new necrotic tissues at the wound edge seen when changing the VAC US showed gallbladder sludge 02/11 i and d again for necrotic tissues at right thigh wound 02/12: WBC down to 11. HIDA scan Vitals Vitals Vital Signs Date Time Temp Pulse Resp B/P (MAP) Pulse Ox O2 Delivery O2 Flow Rate FiO2 02/12/18 10:04 80 117/54 02/12/18 09:58 Room Air 02/12/18 03:49 16 02/11/18 23:39 98.7 97 98.7 02/11/18 20:00 2.0 Physical Exam Physical Exam GENERAL: Propped up in bed, looks better OC/Op- dry LUNGS: Clear. HEART: S1, S2 regular. ABDOMEN: Soft, NT, ND EXTREMITIES: Left BKA. RLE less swollen and red; + wrinkles. Incision well-approx w/ alberto. Wound very clean and granulating. Heel without wound NEUROLOGIC: More Alert and more responsive SKIN: without rash Tunnelled RIJ (01/29) clean Left chest line is clean General: Alert, Oriented X3, Cooperative, No acute distress Heart: Regular rate, Normal S1, Normal S2, No murmurs, Gallops Lungs: Wheezing Abdomen: Normal bowel sounds, Soft, No tenderness, No hepatosplenomegaly, No masses Extremities: Other (wound inspected. Excellent muscle viability. Some washburn exudate peripheral edges superior and medial. Should respond to further wound suction dressing. measurements recorded.) Skin: No breakdown, Other (dehiscence of the proximal right common femoral incision and vein harvest site with lower extremity edema and mild cellulitis) Labs LABS Laboratory Tests Test 02/11/18 11:53 02/11/18 21:17 02/12/18 05:00 02/12/18 10:15 Glucose (Fingerstick) 119 mg/dL (70-99) 150 mg/dL (70-99) 179 mg/dL (70-99) White Blood Count 11.0 x10^3/uL (4.0-11.0) Red Blood Count 2.35 x10^6/uL (3.50-5.40) Hemoglobin 7.4 g/dL (12.0-15.5) Hematocrit 22.3 % (36.0-47.0) Mean Corpuscular Volume 95 fL (79-100) Mean Corpuscular Hemoglobin 32 pg (25-35) Mean Corpuscular Hemoglobin Concent 33 g/dL (31-37) Red Cell Distribution Width 17.8 % (11.5-14.5) Platelet Count 341 x10^3/uL (140-400) Neutrophils (%) (Auto) 79 % (31-73) Lymphocytes (%) (Auto) 10 % (24-48) Monocytes (%) (Auto) 11 % (0-9) Eosinophils (%) (Auto) 0 % (0-3) Basophils (%) (Auto) 0 % (0-3) Neutrophils # (Auto) 8.7 x10^3uL (1.8-7.7) Lymphocytes # (Auto) 1.1 x10^3/uL (1.0-4.8) Monocytes # (Auto) 1.2 x10^3/uL (0.0-1.1) Eosinophils # (Auto) 0.0 x10^3/uL (0.0-0.7) Basophils # (Auto) 0.0 x10^3/uL (0.0-0.2) Sodium Level 140 mmol/L (136-145) Potassium Level 3.4 mmol/L (3.5-5.1) Chloride Level 102 mmol/L (98-107) Carbon Dioxide Level 30 mmol/L (21-32) Anion Gap 8 (6-14) Blood Urea Nitrogen 11 mg/dL (7-20) Creatinine 3.1 mg/dL (0.6-1.0) Estimated GFR (Cockcroft-Gault) 15.8 Glucose Level 176 mg/dL (70-99) Calcium Level 8.4 mg/dL (8.5-10.1) Assessment and Plan Assessmemt and Plan Problems Medical Problems: (1) Chronic renal failure Status: Acute Comment Review of Relevant I have reviewed the following items bert (where applicable) has been applied. Labs Laboratory Tests Test 02/10/18 16:41 02/10/18 23:38 02/11/18 05:42 02/11/18 08:56 Glucose (Fingerstick) 128 mg/dL (70-99) 125 mg/dL (70-99) 107 mg/dL (70-99) White Blood Count 14.0 x10^3/uL (4.0-11.0) Red Blood Count 2.48 x10^6/uL (3.50-5.40) Hemoglobin 8.1 g/dL (12.0-15.5) Hematocrit 23.5 % (36.0-47.0) Mean Corpuscular Volume 95 fL (79-100) Mean Corpuscular Hemoglobin 33 pg (25-35) Mean Corpuscular Hemoglobin Concent 34 g/dL (31-37) Red Cell Distribution Width 17.7 % (11.5-14.5) Platelet Count 361 x10^3/uL (140-400) Neutrophils (%) (Auto) 88 % (31-73) Lymphocytes (%) (Auto) 4 % (24-48) Monocytes (%) (Auto) 7 % (0-9) Eosinophils (%) (Auto) 0 % (0-3) Basophils (%) (Auto) 0 % (0-3) Neutrophils # (Auto) 12.3 x10^3uL (1.8-7.7) Lymphocytes # (Auto) 0.6 x10^3/uL (1.0-4.8) Monocytes # (Auto) 1.0 x10^3/uL (0.0-1.1) Eosinophils # (Auto) 0.0 x10^3/uL (0.0-0.7) Basophils # (Auto) 0.1 x10^3/uL (0.0-0.2) Sodium Level 135 mmol/L (136-145) Potassium Level 3.7 mmol/L (3.5-5.1) Chloride Level 99 mmol/L (98-107) Carbon Dioxide Level 27 mmol/L (21-32) Anion Gap 9 (6-14) Blood Urea Nitrogen 21 mg/dL (7-20) Creatinine 4.7 mg/dL (0.6-1.0) Estimated GFR (Cockcroft-Gault) 9.8 BUN/Creatinine Ratio 4 (6-20) Glucose Level 124 mg/dL (70-99) Calcium Level 8.4 mg/dL (8.5-10.1) Total Bilirubin 0.5 mg/dL (0.2-1.0) Aspartate Amino Transf (AST/SGOT) 13 U/L (15-37) Alanine Aminotransferase (ALT/SGPT) 13 U/L (14-59) Alkaline Phosphatase 92 U/L (46-116) Total Protein 5.1 g/dL (6.4-8.2) Albumin 2.0 g/dL (3.4-5.0) Albumin/Globulin Ratio 0.6 (1.0-1.7) Random Gentamicin Level 3.6 mcg/mL Test 02/11/18 11:53 02/11/18 21:17 02/12/18 05:00 02/12/18 10:15 Glucose (Fingerstick) 119 mg/dL (70-99) 150 mg/dL (70-99) 179 mg/dL (70-99) White Blood Count 11.0 x10^3/uL (4.0-11.0) Red Blood Count 2.35 x10^6/uL (3.50-5.40) Hemoglobin 7.4 g/dL (12.0-15.5) Hematocrit 22.3 % (36.0-47.0) Mean Corpuscular Volume 95 fL (79-100) Mean Corpuscular Hemoglobin 32 pg (25-35) Mean Corpuscular Hemoglobin Concent 33 g/dL (31-37) Red Cell Distribution Width 17.8 % (11.5-14.5) Platelet Count 341 x10^3/uL (140-400) Neutrophils (%) (Auto) 79 % (31-73) Lymphocytes (%) (Auto) 10 % (24-48) Monocytes (%) (Auto) 11 % (0-9) Eosinophils (%) (Auto) 0 % (0-3) Basophils (%) (Auto) 0 % (0-3) Neutrophils # (Auto) 8.7 x10^3uL (1.8-7.7) Lymphocytes # (Auto) 1.1 x10^3/uL (1.0-4.8) Monocytes # (Auto) 1.2 x10^3/uL (0.0-1.1) Eosinophils # (Auto) 0.0 x10^3/uL (0.0-0.7) Basophils # (Auto) 0.0 x10^3/uL (0.0-0.2) Sodium Level 140 mmol/L (136-145) Potassium Level 3.4 mmol/L (3.5-5.1) Chloride Level 102 mmol/L (98-107) Carbon Dioxide Level 30 mmol/L (21-32) Anion Gap 8 (6-14) Blood Urea Nitrogen 11 mg/dL (7-20) Creatinine 3.1 mg/dL (0.6-1.0) Estimated GFR (Cockcroft-Gault) 15.8 Glucose Level 176 mg/dL (70-99) Calcium Level 8.4 mg/dL (8.5-10.1) Laboratory Tests Test 02/11/18 11:53 02/11/18 21:17 02/12/18 05:00 02/12/18 10:15 Glucose (Fingerstick) 119 mg/dL (70-99) 150 mg/dL (70-99) 179 mg/dL (70-99) White Blood Count 11.0 x10^3/uL (4.0-11.0) Red Blood Count 2.35 x10^6/uL (3.50-5.40) Hemoglobin 7.4 g/dL (12.0-15.5) Hematocrit 22.3 % (36.0-47.0) Mean Corpuscular Volume 95 fL (79-100) Mean Corpuscular Hemoglobin 32 pg (25-35) Mean Corpuscular Hemoglobin Concent 33 g/dL (31-37) Red Cell Distribution Width 17.8 % (11.5-14.5) Platelet Count 341 x10^3/uL (140-400) Neutrophils (%) (Auto) 79 % (31-73) Lymphocytes (%) (Auto) 10 % (24-48) Monocytes (%) (Auto) 11 % (0-9) Eosinophils (%) (Auto) 0 % (0-3) Basophils (%) (Auto) 0 % (0-3) Neutrophils # (Auto) 8.7 x10^3uL (1.8-7.7) Lymphocytes # (Auto) 1.1 x10^3/uL (1.0-4.8) Monocytes # (Auto) 1.2 x10^3/uL (0.0-1.1) Eosinophils # (Auto) 0.0 x10^3/uL (0.0-0.7) Basophils # (Auto) 0.0 x10^3/uL (0.0-0.2) Sodium Level 140 mmol/L (136-145) Potassium Level 3.4 mmol/L (3.5-5.1) Chloride Level 102 mmol/L (98-107) Carbon Dioxide Level 30 mmol/L (21-32) Anion Gap 8 (6-14) Blood Urea Nitrogen 11 mg/dL (7-20) Creatinine 3.1 mg/dL (0.6-1.0) Estimated GFR (Cockcroft-Gault) 15.8 Glucose Level 176 mg/dL (70-99) Calcium Level 8.4 mg/dL (8.5-10.1) Microbiology 02/06/18 Blood Culture - Final, Complete NO GROWTH AFTER 5 DAYS 01/27/18 Anaerobic/Aerobic Culture - Final, Complete 01/27/18 Anaerobic Culture Result 1 (ROSALIND) - Final, Complete 01/27/18 Aerobic Culture - Final, Complete 01/27/18 Aerobic Culture Result 1 (ROSALIND) - Final, Complete 01/27/18 Antimicrobic Susceptibility - Final, Complete 01/27/18 Gram Stain - Final, Complete 01/27/18 Gram Stain Result 1 (ROSALIND) - Final, Complete 01/27/18 Gram Stain Result 2 (ROSALIND) - Final, Complete Medications Current Medications Hydromorphone HCl (Dilaudid) 2 mg 1X ONCE IV Last administered on 01/26/18at 22 :39; Start 01/26/18 at 22:00; Stop 01/26/18 at 22:01; Status DC Vancomycin HCl (Vanco Per Pharmacy) 1 each PRN DAILY PRN MC SEE COMMENTS Last administered on 01/31/18at 17:20; Start 01/26/18 at 22:45; Stop 02/01/18 at 11:41 ; Status DC Vancomycin HCl 1.75 gm/Sodium Chloride 500 ml @ 250 mls/hr 1X ONCE IV Last administered on 01/26/18at 23:53; Start 01/26/18 at 23:00; Stop 01/27/18 at 00:59 ; Status DC Ondansetron HCl (Zofran) 4 mg PRN Q8HRS PRN IV NAUSEA/VOMITING 1ST CHOICE; Start 01/26/18 at 23:15; Stop 01/27/18 at 23:14; Status DC Sodium Chloride 1,000 ml @ 75 mls/hr [id number] IV Last administered on at 00:39; Start 01/26/18 at 23:30; Stop 01/27/18 at 23:29; Status DC Pharmacy Consult (C.diff Med Screen By Rx) 1 each 1X ONCE MC ; Start 01/27/18 at 01:00; Stop 01/27/18 at 01:01; Status Cancel Influenza Virus Vaccine (Afluria Trivalent [id number] Syringe) 0.5 ml ONCE ONCE VAX IM Last administered on 01/27/18at 09:00; Start 01/27/18 at 09:00; Stop 01/27/18 at 09:01; Status DC Vancomycin HCl (Vancomycin Random Level) 1 each 1X ONCE MC Last administered on 01/28/18at 05:00; Start 01/28/18 at 05:00; Stop 01/28/18 at 05:01; Status DC Hydromorphone HCl (Dilaudid) 1 mg PRN Q3HRS PRN IV SEVERE PAIN Last administered on 02/12/18at 06:55; Start 01/27/18 at 03:30 Ondansetron HCl (Zofran) 4 mg PRN Q6HRS PRN IV NAUSEA/VOMITING; Start 01/27/18 at 10:45; Stop 01/27/18 at 18:00; Status DC Fentanyl Citrate (Fentanyl 2ml Vial) 25 mcg PRN Q5MIN PRN IV MILD PAIN; Start 01/27/18 at 10:45; Stop 01/27/18 at 18:00; Status DC Fentanyl Citrate (Fentanyl 2ml Vial) 50 mcg PRN Q5MIN PRN IV MODERATE TO SEVERE PAIN; Start 01/27/18 at 10:45; Stop 01/27/18 at 18:00; Status DC Morphine Sulfate (Morphine Sulfate) 1 mg PRN Q10MIN PRN IV SEVERE PAIN Last administered on 01/27/18at 16:28; Start 01/27/18 at 10:45; Stop 01/27/18 at 18:00 ; Status DC Ringer's Solution 1,000 ml @ 30 mls/hr Q24H IV Last administered on 01/27/18at 10:35; Start 01/27/18 at 10:35; Stop 01/27/18 at 19:36; Status DC Lidocaine HCl (Xylocaine-Mpf 1% 2ml Vial) 2 ml 1X PRN PRN ID IV START; Start 01/27/18 at 10:45; Stop 01/27/18 at 18:00; Status DC Hydromorphone HCl (Dilaudid) 0.5 mg PRN Q10MIN PRN IV SEV PAIN, Second choice Last administered on 01/27/18at 15:59; Start 01/27/18 at 10:45; Stop 01/27/18 at 18:00; Status DC Prochlorperazine Edisylate (Compazine) 5 mg PACU PRN PRN IV NAUSEA, MRX1; Start 01/27/18 at 10:45; Stop 01/27/18 at 18:00; Status DC Amiodarone HCl (Cordarone) 200 mg DAILY PO Last administered on 02/10/18at 09: 00; Start 01/27/18 at 12:30 Aspirin (Anthony Aspirin) 325 mg DAILY PO Last administered on 01/28/18at 09:13; Start 01/27/18 at 12:30; Stop 01/28/18 at 14:26; Status DC Carbamazepine (TEGretol) 200 mg BID PO Last administered on 02/12/18at 10:07; Start 01/27/18 at 12:30 Carvedilol (Coreg) 12.5 mg BIDWMEALS PO Last administered on 02/12/18at 10:04; Start 01/27/18 at 12:30 Vitamin B Complex/ Vitamin C (Melly-Shabbir) 1 tab DAILY PO Last administered on at 10:04; Start 01/27/18 at 12:30 Furosemide (Lasix) 80 mg [id number] PO Last administered on 02/12/18at 10:04; Start 01/27/18 at 12:30 Insulin Glargine (Lantus) 22 units QHS SQ Last administered on 02/06/18at 22:21 ; Start 01/27/18 at 21:00 Morphine Sulfate (Ms Contin) 15 mg BID PO Last administered on 02/12/18at 09:58 ; Start 01/27/18 at 12:30 Nitroglycerin (Nitrostat) 0.4 mg PRN Q5MIN PRN SL CHEST PAIN; Start 01/27/18 at 12:00 Nystatin (Nystop) 1 susanna PRN BID PRN TP SKIN BREAKDOWN; Start 01/27/18 at 12:00 Tramadol HCl (Ultram) 50 mg PRN Q4HRS PRN PO HEADACHE Last administered on at 04:36; Start 01/27/18 at 12:00 Non-Formulary Medication (Albuterol Sulfate (Proventil Hfa Inhaler)) 2 puff BID PRN IH FOR ASTHMA; Start 01/27/18 at 12:00; Status UNV Atorvastatin Calcium (Lipitor) 80 mg QHS PO Last administered on 02/11/18 21: 04; Start 01/27/18 at 21:00 Calcitriol (Rocaltrol) 0.25 mcg DAILY PO Last administered on 02/12/18 09:57 ; Start 01/27/18 at 12:30 Diltiazem HCl (Cardizem 24hr Cd) 120 mg DAILY PO Last administered on 12:43; Start 01/27/18 at 12:30 Erythromycin (E-Mycin) 250 mg BID PO Last administered on 02/12/18 09:58; Start 01/27/18 at 21:00 Fenofibrate (Lofibra) 134 mg QHS PO Last administered on 02/11/18 20:58; Start 01/27/18 at 21:00 Non-Formulary Medication (Fluconazole (Diflucan)) 100 mg PRN PO ; Start at 12:00; Status UNV Lidocaine (Lidoderm) 1 patch PRN DAILY PRN TD PAIN; Start 01/27/18 at 09:00 Niacin (Slo-Niacin) 500 mg QHS PO Last administered on 02/11/18 20:59; Start 01/27/18 at 21:00 Ondansetron HCl (Zofran Odt) 4 mg PRN Q6HRS PRN PO NAUSEA/VOMITING Last administered on 02/07/18 16:53; Start 01/27/18 at 12:15 Miscellaneous (Lidoderm Patch Removal) 1 ea QHS MC Last administered on 20:57; Start 01/27/18 at 21:00 Albuterol Sulfate (Ventolin Neb Soln) 2.5 mg PRN BID PRN NEB SHORTNESS OF BREATH Last administered on 01/27/18 21:59; Start 01/27/18 at 12:30 Lidocaine HCl (Lidocaine 1% 50ml Vial) 50 ml 1X ONCE INJ Last administered on 01/27/18 14:06; Start 01/27/18 at 12:45; Stop 01/27/18 at 12:46; Status DC Hydromorphone HCl (Dilaudid) 2 mg STK-MED ONCE .ROUTE ; Start 01/27/18 at 12:36 ; Stop 01/27/18 at 12:38; Status DC Propofol 20 ml @ As Directed STK-MED ONCE IV ; Start 01/27/18 at 12:38; Stop at 12:39; Status DC Bacitracin 63460 unit/Sodium Chloride 3,000 ml @ 0 mls/hr 1X ONCE IR ; Start 01/27/18 at 13:15; Stop 01/27/18 at 13:16; Status Cancel Dexamethasone Sodium Phosphate (Decadron) 20 mg STK-MED ONCE .ROUTE ; Start 01/27/18 at 13:11; Stop 01/27/18 at 13:12; Status DC Ondansetron HCl (Zofran) 4 mg STK-MED ONCE .ROUTE ; Start 01/27/18 at 13:11; Stop 01/27/18 at 13:12; Status DC Sevoflurane (Ultane) 30 ml STK-MED ONCE IH ; Start 01/27/18 at 13:11; Stop 01/27 at 13:12; Status DC Bacitracin (Bacitracin) 50,000 unit STK-MED ONCE IRR Last administered on at 13:58; Start 01/27/18 at 12:14; Stop 01/27/18 at 13:16; Status DC Clopidogrel Bisulfate (Plavix) 75 mg DAILYWBKFT PO Last administered on at 09:13; Start 01/28/18 at 08:00; Stop 01/28/18 at 14:28; Status DC Hydromorphone HCl (Dilaudid) 2 mg STK-MED ONCE .ROUTE ; Start 01/27/18 at 15:38 ; Stop 01/27/18 at 15:40; Status DC Gentamicin Sulfate 235 mg/ Dextrose 105.875 ml @ 105.875 mls/hr 1X ONCE IV Last administered on 01/27/18at 19:56; Start 01/27/18 at 16:00; Stop 01/27/18 at 16:59; Status DC Lactobacillus Rhamnosus (Culturelle) 1 cap BID PO Last administered on at 09:57; Start 01/27/18 at 21:00 Cefepime HCl 1 gm/ Dextrose 50 ml @ 100 mls/hr DAILY IV ; Start 01/29/18 at 09: 00; Status UNV Metronidazole 100 ml @ 100 mls/hr Q12HR IV Last administered on 02/02/18at 21: 00; Start 01/28/18 at 10:00; Stop 02/03/18 at 10:49; Status DC Cefepime HCl (Maxipime) 1 gm Q24H IVP Last administered on 02/03/18at 10:54; Start 01/28/18 at 10:00; Stop 02/04/18 at 12:02; Status DC Lidocaine HCl (Xylocaine-Mpf 2% Vial) 2 ml STK-MED ONCE .ROUTE ; Start 01/28/18 at 11:41; Stop 01/28/18 at 11:42; Status DC Sodium Chloride 1,000 ml @ 1,000 mls/hr Q1H PRN IV hypotension; Start 01/28/18 at 12:09; Stop 01/28/18 at 18:08; Status DC Info (PHARMACY MONITORING -- do not chart) 1 each PRN DAILY PRN MC SEE COMMENTS ; Start 01/28/18 at 12:15; Status UNV Info (PHARMACY MONITORING -- do not chart) 1 each PRN DAILY PRN MC SEE COMMENTS ; Start 01/28/18 at 12:15; Stop 01/31/18 at 09:10; Status DC Lidocaine HCl (Xylocaine-Mpf 2% Vial) 2 ml 1X ONCE INJ ; Start 01/28/18 at 12: 15; Stop 01/28/18 at 12:21; Status DC Ticagrelor (Brilinta) 90 mg BID PO Last administered on 02/12/18at 09:00; Start 01/28/18 at 21:00 Diphenhydramine HCl (Benadryl) 25 mg PRN Q6HRS PRN PO ITCHING; Start 01/28/18 at 14:15 Aspirin (Ecotrin) 81 mg DAILYWBKFT PO Last administered on 02/12/18at 10:07; Start 01/29/18 at 08:00 Insulin Human Lispro (HumaLOG) 0-5 UNITS TIDWMEALS SQ Last administered on at 09:07; Start 01/28/18 at 17:00 Dextrose (Dextrose 50%-Water Syringe) 12.5 gm PRN Q15MIN PRN IV SEE COMMENTS Last administered on 02/05/18at 08:50; Start 01/28/18 at 14:45 Hydralazine HCl (Apresoline) 10 mg PRN TID PRN PO hypertension; Start 01/28/18 at 14:45 Oxycodone/ Acetaminophen (Percocet 10/325) 1 tab PRN Q4HRS PRN PO pain SEVERE Last administered on 02/10/18at 17:24; Start 01/29/18 at 07:45 Promethazine HCl (Phenergan Supp) 12.5 mg 1X ONCE RI ; Start 01/29/18 at 12:15 ; Stop 01/29/18 at 12:36; Status DC Promethazine HCl (Phenergan Im) 12.5 mg 1X ONCE IM ; Start 01/29/18 at 12:45; Stop 01/29/18 at 12:46; Status DC Lidocaine/ Epinephrine (LIDOCAINE 1%-EPI 1:100,000 Multi-Dose) 20 ml STK-MED ONCE .ROUTE ; Start 01/29/18 at 12:45; Stop 01/29/18 at 12:47; Status DC Heparin Sodium (Porcine) (Hep Lock Adult) 500 unit STK-MED ONCE IV ; Start 01/29 at 12:45; Stop 01/29/18 at 12:47; Status DC Morphine Sulfate (Morphine Sulfate) 10 mg STK-MED ONCE .ROUTE ; Start 01/29/18 at 13:23; Stop 01/29/18 at 13:25; Status DC Midazolam HCl (Versed) 2 mg STK-MED ONCE .ROUTE ; Start 01/29/18 at 13:23; Stop 01/29/18 at 13:25; Status DC Morphine Sulfate (Morphine Sulfate) 1 mg PRN Q10MIN PRN IV SEVERE PAIN Last administered on 02/01/18at 15:46; Start 02/01/18 at 07:00; Stop 02/02/18 at 06:59 ; Status DC Ringer's Solution 1,000 ml @ 30 mls/hr Q24H IV ; Start 02/01/18 at 07:00; Stop 02/01/18 at 18:59; Status DC Lidocaine HCl (Xylocaine-Mpf 1% 2ml Vial) 2 ml PRN 1X PRN ID PRIOR TO IV START ; Start 02/01/18 at 07:00; Stop 02/02/18 at 06:59; Status DC Hydromorphone HCl (Dilaudid) 0.5 mg PRN Q10MIN PRN IV SEV PAIN, Second choice Last administered on 02/01/18at 16:08; Start 02/01/18 at 07:00; Stop 02/02/18 at 06:59; Status DC Prochlorperazine Edisylate (Compazine) 5 mg PACU PRN PRN IV NAUSEA, MRX1; Start 02/01/18 at 07:00; Stop 02/02/18 at 06:59; Status DC Lidocaine/ Epinephrine (LIDOCAINE 1%-EPI 1:100,000 Multi-Dose) 8 ml 1X ONCE IJ Last administered on 01/29/18at 14:01; Start 01/29/18 at 14:00; Stop 01/29/18 at 14:17; Status DC Heparin Sodium (Porcine) (Hep Lock Adult) 500 unit 1X ONCE IV Last administered on 01/29/18at 14:04; Start 01/29/18 at 14:00; Stop 01/29/18 at 14:17 ; Status DC Morphine Sulfate (Morphine Sulfate) 5 mg 1X ONCE IV Last administered on at 14:01; Start 01/29/18 at 14:00; Stop 01/29/18 at 14:17; Status DC Ondansetron HCl (Zofran) 4 mg PRN Q6HRS PRN IV NAUSEA/VOMITING 1ST CHOICE Last administered on 02/09/18at 08:22; Start 01/29/18 at 14:45 Vancomycin HCl 500 mg/Sodium Chloride 100 ml @ 100 mls/hr 1X ONCE IV Last administered on 01/29/18at 21:04; Start 01/29/18 at 18:00; Stop 01/29/18 at 18:59 ; Status DC Sodium Chloride 1,000 ml @ 1,000 mls/hr Q1H PRN IV hypotension; Start 01/30/18 at 13:09; Stop 01/30/18 at 19:08; Status DC Sodium Chloride (Normal Saline Flush) 10 ml 1X PRN PRN IV AP catheter pack; Start 01/30/18 at 13:15; Stop 01/31/18 at 13:14; Status DC Sodium Chloride (Normal Saline Flush) 10 ml 1X PRN PRN IV SOCCER PLAYER catheter pack; Start 01/30/18 at 13:15; Stop 01/31/18 at 13:14; Status DC Sodium Chloride 1,000 ml @ 400 mls/hr Q2H30M PRN IV PATENCY; Start 01/30/18 at 13:09; Stop 01/31/18 at 01:08; Status DC Info (PHARMACY MONITORING -- do not chart) 1 each PRN DAILY PRN MC SEE COMMENTS ; Start 01/30/18 at 13:15; Stop 01/30/18 at 13:17; Status DC Info (PHARMACY MONITORING -- do not chart) 1 each PRN DAILY PRN MC SEE COMMENTS ; Start 01/30/18 at 13:15; Stop 02/04/18 at 07:27; Status DC Lidocaine HCl (Lidocaine 1% 50ml Vial) 50 ml 1X ONCE INJ ; Start 01/30/18 at 15 :45; Stop 01/30/18 at 15:46; Status DC Vancomycin HCl 500 mg/Sodium Chloride 100 ml @ 100 mls/hr ONCE ONCE IV Last administered on 01/30/18at 20:49; Start 01/30/18 at 18:00; Stop 01/30/18 at 18:59 ; Status DC Cefazolin Sodium 1 gm/Sodium Chloride 500 ml @ 500 mls/hr 1X ONCE IRR ; Start 02/01/18 at 06:00; Stop 02/01/18 at 06:59; Status DC Lidocaine HCl (Xylocaine-Mpf 2% Vial) 2 ml STK-MED ONCE .ROUTE ; Start 01/28/18 at 12:00; Stop 02/01/18 at 08:30; Status DC Darbepoetin Mauricio (Aranesp) 60 mcg [id number] SQ Last administered on 02/08/18at 20:41; Start 02/01/18 at 21:00 Cellulose (Surgicel Fibrillar 1x2) 1 each STK-MED ONCE .ROUTE ; Start 02/01/18 at 12:05; Stop 02/01/18 at 13:06; Status DC Lidocaine HCl (Xylocaine 1% Pf 30ml Vial) 30 ml 1X ONCE INJ ; Start 02/01/18 at 13:15; Stop 02/01/18 at 13:18; Status DC Sodium Chloride 1,000 ml @ 75 mls/hr [id number] IV Last administered on at 00:15; Start 02/01/18 at 13:45; Stop 02/02/18 at 16:43; Status DC Morphine Sulfate (Morphine Sulfate) 10 mg STK-MED ONCE .ROUTE ; Start 02/01/18 at 14:24; Stop 02/01/18 at 14:25; Status DC Midazolam HCl (Versed) 2 mg STK-MED ONCE .ROUTE ; Start 02/01/18 at 14:24; Stop 02/01/18 at 14:25; Status DC Midazolam HCl (Versed) 2 mg STK-MED ONCE .ROUTE ; Start 02/01/18 at 14:25; Stop 02/01/18 at 14:26; Status DC Propofol 20 ml @ As Directed STK-MED ONCE IV ; Start 02/01/18 at 14:25; Stop at 14:26; Status DC Dexamethasone Sodium Phosphate (Decadron) 20 mg STK-MED ONCE .ROUTE ; Start 02/01/18 at 14:25; Stop 02/01/18 at 14:26; Status DC Ondansetron HCl (Zofran) 4 mg STK-MED ONCE .ROUTE ; Start 02/01/18 at 14:25; Stop 02/01/18 at 14:26; Status DC Bacitracin (Bacitracin) 50,000 unit STK-MED ONCE IRR Last administered on at 14:55; Start 02/01/18 at 13:32; Stop 02/01/18 at 14:32; Status DC Vancomycin HCl 500 mg/Sodium Chloride 100 ml @ 100 mls/hr [id number] IV Last administered on 02/02/18at 16:15; Start 02/02/18 at 16:00; Stop 02/04/18 at 12: 02; Status DC Sodium Chloride 1,000 ml @ 1,000 mls/hr Q1H PRN IV hypotension; Start 02/02/18 at 09:39; Stop 02/02/18 at 15:38; Status DC Albumin Human 200 ml @ 200 mls/hr 1X PRN PRN IV Hypotension; Start 02/02/18 at 09:45; Stop 02/02/18 at 15:44; Status DC Sodium Chloride 1,000 ml @ 400 mls/hr Q2H30M PRN IV PATENCY; Start 02/02/18 at 09:39; Stop 02/02/18 at 21:38; Status DC Info (PHARMACY MONITORING -- do not chart) 1 each PRN DAILY PRN MC SEE COMMENTS ; Start 02/02/18 at 09:45; Stop 02/04/18 at 07:28; Status DC Info (PHARMACY MONITORING -- do not chart) 1 each PRN DAILY PRN MC SEE COMMENTS ; Start 02/02/18 at 09:45; Status UNV Prochlorperazine Edisylate (Compazine) 10 mg PRN Q6HRS PRN IV NAUSEA/VOMITING 2ND CHOICE Last administered on 02/10/18at 23:06; Start 02/02/18 at 11:30 Vancomycin HCl (Vanco Per Pharmacy) 1 each PRN DAILY PRN MC SEE COMMENTS Last administered on 02/02/18at 13:57; Start 02/02/18 at 14:00; Stop 02/04/18 at 12: 02; Status DC Famotidine (Pepcid Vial) 20 mg DAILY IVP Last administered on 02/08/18at 09:00 ; Start 02/03/18 at 10:00; Stop 02/08/18 at 11:45; Status DC Alteplase, Recombinant (Cathflo) 2 mg 1X ONCE INT CAT Last administered on 03/14at 02:56; Start 02/04/18 at 03:00; Stop 02/04/18 at 03:01; Status DC Sodium Chloride 1,000 ml @ 1,000 mls/hr Q1H PRN IV hypotension; Start at 07:15; Stop 02/04/18 at 13:14; Status DC Albumin Human 200 ml @ 200 mls/hr 1X PRN PRN IV Hypotension Last administered on 02/04/18at 11:26; Start 02/04/18 at 07:15; Stop 02/04/18 at 13:14; Status DC Acetaminophen (Tylenol) 500 mg 1X PRN PRN PO MILD PAIN / TEMP; Start 02/04/18 at 07:15; Stop 02/05/18 at 07:14; Status DC Diphenhydramine HCl (Benadryl) 25 mg 1X PRN PRN IV ITCHING; Start 02/04/18 at 07:15; Stop 02/05/18 at 07:14; Status DC Diphenhydramine HCl (Benadryl) 25 mg 1X PRN PRN IV ITCHING; Start 02/04/18 at 07:15; Stop 02/05/18 at 07:14; Status DC Sodium Chloride 1,000 ml @ 400 mls/hr Q2H30M PRN IV PATENCY; Start 02/04/18 at 07:15; Stop 02/04/18 at 19:14; Status DC Info (PHARMACY MONITORING -- do not chart) 1 each PRN DAILY PRN MC SEE COMMENTS ; Start 02/04/18 at 07:15; Status Cancel Lidocaine HCl (Xylocaine-Mpf 2% Vial) 2 ml STK-MED ONCE .ROUTE ; Start at 09:43; Stop 02/04/18 at 09:44; Status DC Docusate Sodium (Colace) 100 mg PRN DAILY PRN PO CONSTIPATION Last administered on 02/07/18at 22:13; Start 02/04/18 at 10:30 Ceftriaxone Sodium 2 gm/ Dextrose 100 ml @ 200 mls/hr Q24H IV Last administered on 02/04/18at 14:24; Start 02/04/18 at 13:00; Stop 02/05/18 at 11 :49; Status DC Morphine Sulfate (Morphine Sulfate) 1 mg PRN Q10MIN PRN IV SEVERE PAIN; Start 02/05/18 at 07:00; Stop 02/06/18 at 06:59; Status DC Ringer's Solution 1,000 ml @ 30 mls/hr Q24H IV ; Start 02/05/18 at 07:00; Stop 02/05/18 at 18:59; Status DC Lidocaine HCl (Xylocaine-Mpf 1% 2ml Vial) 2 ml PRN 1X PRN ID IV START; Start 02/05/18 at 07:00; Stop 02/06/18 at 06:59; Status DC Hydromorphone HCl (Dilaudid) 0.5 mg PRN Q10MIN PRN IV SEV PAIN, Second choice; Start 02/05/18 at 07:00; Stop 02/06/18 at 06:59; Status DC Prochlorperazine Edisylate (Compazine) 5 mg PACU PRN PRN IV NAUSEA, MRX1; Start 02/05/18 at 07:00; Stop 02/06/18 at 06:59; Status DC Lidocaine HCl (Xylocaine-Mpf 2% Vial) 2 ml STK-MED ONCE .ROUTE ; Start at 10:00; Stop 02/05/18 at 08:19; Status DC Sodium Chloride 1,000 ml @ 75 mls/hr [id number] IV Last administered on at 07:00; Start 02/05/18 at 10:30; Stop 02/08/18 at 15:20; Status DC Cefepime HCl 1 gm/ Dextrose 50 ml @ 100 mls/hr DAILY IV ; Start 02/06/18 at 09 :00; Status UNV Vancomycin HCl (Vanco Per Pharmacy) 1 each PRN DAILY PRN MC SEE COMMENTS Last administered on 02/08/18at 14:35; Start 02/05/18 at 12:00; Stop 02/09/18 at 09 :50; Status DC Cefepime HCl (Maxipime) 1 gm Q24H IVP Last administered on 02/08/18at 14:49; Start 02/05/18 at 12:00; Stop 02/09/18 at 09:35; Status DC Propofol 20 ml @ As Directed STK-MED ONCE IV ; Start 02/05/18 at 12:08; Stop 02/05/18 at 12:09; Status DC Lidocaine HCl (Xylocaine-Mpf 2% Vial) 2 ml STK-MED ONCE .ROUTE ; Start at 12:08; Stop 02/05/18 at 12:09; Status DC Vancomycin HCl 1.5 gm/Sodium Chloride 500 ml @ 250 mls/hr 1X ONCE IV Last administered on 02/05/18at 14:05; Start 02/05/18 at 14:00; Stop 02/05/18 at 15 :59; Status DC Vancomycin HCl (Vancomycin Random Level) 1 each 1X ONCE MC Last administered on 02/06/18at 05:00; Start 02/06/18 at 05:00; Stop 02/06/18 at 05:01; Status DC Sodium Chloride 1,000 ml @ 1,000 mls/hr Q1H PRN IV hypotension; Start at 08:12; Stop 02/06/18 at 14:11; Status DC Sodium Chloride 1,000 ml @ 400 mls/hr Q2H30M PRN IV PATENCY; Start 02/06/18 at 08:12; Stop 02/06/18 at 20:11; Status DC Info (PHARMACY MONITORING -- do not chart) 1 each PRN DAILY PRN MC SEE COMMENTS ; Start 02/06/18 at 08:15; Status UNV Info (PHARMACY MONITORING -- do not chart) 1 each PRN DAILY PRN MC SEE COMMENTS ; Start 02/06/18 at 08:15; Status UNV Lidocaine HCl (Xylocaine-Mpf 1% 2ml Vial) 2 ml 1X ONCE ID Last administered on 02/06/18at 08:30; Start 02/06/18 at 08:30; Stop 02/06/18 at 08:31; Status DC Lidocaine HCl (Xylocaine-Mpf 2% Vial) 2 ml STK-MED ONCE .ROUTE ; Start at 08:32; Stop 02/06/18 at 08:33; Status DC Diphenhydramine HCl (Benadryl) 50 mg 1X ONCE IVP Last administered on at 09:10; Start 02/06/18 at 09:00; Stop 02/06/18 at 09:02; Status DC Vancomycin HCl (Vancomycin Random Level) 1 each 1X ONCE MC Last administered on 02/08/18at 05:00; Start 02/08/18 at 05:00; Stop 02/08/18 at 05:01; Status DC Lidocaine HCl (Xylocaine-Mpf 2% Vial) 2 ml STK-MED ONCE .ROUTE ; Start at 09:00; Stop 02/08/18 at 07:54; Status DC Polyethylene Glycol (miraLAX PACKET) 17 gm DAILY PO Last administered on at 08:56; Start 02/08/18 at 12:30 Famotidine (Pepcid) 20 mg QHS PO Last administered on 02/11/18at 20:59; Start 02/08/18 at 21:00 Vancomycin HCl 500 mg/Sodium Chloride 100 ml @ 100 mls/hr QTUTHSA IV ; Start 02/09/18 at 16:00; Stop 02/09/18 at 16:00; Status DC Sodium Chloride 1,000 ml @ 1,000 mls/hr Q1H PRN IV hypotension; Start at 08:21; Stop 02/09/18 at 14:20; Status DC Sodium Chloride 1,000 ml @ 400 mls/hr Q2H30M PRN IV PATENCY; Start 02/09/18 at 08:21; Stop 02/09/18 at 20:20; Status DC Info (PHARMACY MONITORING -- do not chart) 1 each PRN DAILY PRN MC SEE COMMENTS ; Start 02/09/18 at 08:30; Status UNV Info (PHARMACY MONITORING -- do not chart) 1 each PRN DAILY PRN MC SEE COMMENTS ; Start 02/09/18 at 08:30 Diphenhydramine HCl (Benadryl) 50 mg 1X ONCE IVP Last administered on at 09:06; Start 02/09/18 at 08:30; Stop 02/09/18 at 08:31; Status DC Lidocaine HCl (Xylocaine-Mpf 2% Vial) 2 ml STK-MED ONCE .ROUTE ; Start at 08:40; Stop 02/09/18 at 08:41; Status DC Linezolid/Dextrose 300 ml @ 300 mls/hr Q12HR IV Last administered on at 09:56; Start 02/09/18 at 10:00 Gentamicin Sulfate 1 each PRN DAILY PRN MC SEE COMMENTS Last administered on at 12:53; Start 02/09/18 at 09:30 Metronidazole 100 ml @ 100 mls/hr Q8HRS IV Last administered on 02/12/18at 05: 53; Start 02/09/18 at 14:00 Gentamicin Sulfate 140 mg/ Dextrose 103.5 ml @ 207 mls/hr 1X ONCE IV Last administered on 02/09/18at 12:26; Start 02/09/18 at 12:00; Stop 02/09/18 at 12 :29; Status DC Lubiprostone (Amitiza) 8 mcg BIDWMEALS PO Last administered on 02/12/18at 09:57 ; Start 02/09/18 at 17:00 Gentamicin Sulfate 1 each 1X ONCE MC Last administered on 02/11/18at 06:00; Start 02/11/18 at 06:00; Stop 02/11/18 at 06:01; Status DC Hydromorphone HCl (Dilaudid) 2 mg 1X ONCE IV ; Start 02/10/18 at 10:30; Stop 02/10/18 at 10:31; Status DC Lidocaine HCl (Xylocaine-Mpf 2% Vial) 2 ml STK-MED ONCE .ROUTE ; Start at 09:00; Stop 02/10/18 at 13:19; Status DC Alteplase, Recombinant (Cathflo) 2 mg 1X ONCE INT CAT Last administered on at 22:18; Start 02/10/18 at 21:30; Stop 02/10/18 at 21:31; Status DC Silver Sulfadiazine (Silvadene) 25 susanna STK-MED ONCE TP ; Start 02/11/18 at 05: 56; Stop 02/11/18 at 06:57; Status DC Lidocaine HCl (Xylocaine 1% Pf 30ml Vial) 30 ml STK-MED ONCE .ROUTE ; Start at 05:57; Stop 02/11/18 at 06:58; Status DC Ondansetron HCl (Zofran) 4 mg PRN Q6HRS PRN IV NAUSEA/VOMITING; Start at 07:15; Stop 02/11/18 at 12:42; Status DC Fentanyl Citrate (Fentanyl 2ml Vial) 25 mcg PRN Q5MIN PRN IV MILD PAIN; Start 02/11/18 at 07:15; Stop 02/11/18 at 12:39; Status DC Fentanyl Citrate (Fentanyl 2ml Vial) 50 mcg PRN Q5MIN PRN IV MODERATE TO SEVERE PAIN; Start 02/11/18 at 07:15; Stop 02/11/18 at 12:40; Status DC Morphine Sulfate (Morphine Sulfate) 1 mg PRN Q10MIN PRN IV SEVERE PAIN; Start 02/11/18 at 07:15; Stop 02/11/18 at 12:41; Status DC Ringer's Solution 1,000 ml @ 30 mls/hr Q24H IV ; Start 02/11/18 at 07:15; Stop 02/11/18 at 19:14; Status Cancel Lidocaine HCl (Xylocaine-Mpf 1% 2ml Vial) 2 ml PRN 1X PRN ID PRIOR TO IV START ; Start 02/11/18 at 07:15; Stop 02/11/18 at 12:40; Status DC Hydromorphone HCl (Dilaudid) 0.5 mg PRN Q10MIN PRN IV SEV PAIN, Second choice; Start 02/11/18 at 07:15; Stop 02/11/18 at 12:40; Status DC Prochlorperazine Edisylate (Compazine) 5 mg PACU PRN PRN IV NAUSEA, MRX1; Start 02/11/18 at 07:15; Stop 02/11/18 at 12:42; Status DC Sodium Chloride 1,000 ml @ 75 mls/hr [id number] IV Last administered on at 10:10; Start 02/11/18 at 07:30 Propofol 20 ml @ As Directed STK-MED ONCE IV ; Start 02/11/18 at 07:20; Stop 02/11/18 at 07:21; Status DC Dexamethasone Sodium Phosphate (Decadron) 20 mg STK-MED ONCE .ROUTE ; Start at 07:20; Stop 02/11/18 at 07:21; Status DC Famotidine (Pepcid Vial) 20 mg STK-MED ONCE .ROUTE ; Start 02/11/18 at 07:20; Stop 02/11/18 at 07:21; Status DC Lidocaine HCl (Lidocaine Pf 2% Vial) 5 ml STK-MED ONCE .ROUTE ; Start 02/11/18 at 07:20; Stop 02/11/18 at 07:21; Status DC Ondansetron HCl (Zofran) 4 mg STK-MED ONCE .ROUTE ; Start 02/11/18 at 07:20; Stop 02/11/18 at 07:21; Status DC Fentanyl Citrate (Fentanyl 2ml Vial) 100 mcg STK-MED ONCE .ROUTE ; Start at 07:20; Stop 02/11/18 at 07:21; Status DC Midazolam HCl (Versed) 2 mg STK-MED ONCE .ROUTE ; Start 02/11/18 at 07:21; Stop 02/11/18 at 07:22; Status DC Ephedrine Sulfate (ePHEDrine PF IN SALINE SYRINGE) 50 mg STK-MED ONCE IV ; Start 02/11/18 at 08:22; Stop 02/11/18 at 08:23; Status DC Desflurane (Suprane) 30 ml STK-MED ONCE IH ; Start 02/11/18 at 08:41; Stop at 08:42; Status DC Sodium Chloride 1,000 ml @ 1,000 mls/hr Q1H PRN IV hypotension; Start at 09:57; Stop 02/11/18 at 15:56; Status DC Albumin Human 200 ml @ 200 mls/hr 1X PRN PRN IV Hypotension; Start 02/11/18 at 10:00; Stop 02/11/18 at 15:59; Status DC Sodium Chloride 1,000 ml @ 400 mls/hr Q2H30M PRN IV PATENCY; Start 02/11/18 at 09:57; Stop 02/11/18 at 21:56; Status DC Info (PHARMACY MONITORING -- do not chart) 1 each PRN DAILY PRN MC SEE COMMENTS ; Start 02/11/18 at 10:00; Status UNV Info (PHARMACY MONITORING -- do not chart) 1 each PRN DAILY PRN MC SEE COMMENTS ; Start 02/11/18 at 10:00; Status UNV Lidocaine HCl (Xylocaine-Mpf 1% 2ml Vial) 2 ml 1X ONCE INJ ; Start 02/11/18 at 10:00; Stop 02/11/18 at 10:13; Status DC Gentamicin Sulfate 100 mg/ Dextrose 52.5 ml @ 105 mls/hr QTUTHSA IV Last administered on 02/11/18at 19:31; Start 02/11/18 at 16:00 Gentamicin Sulfate 1 each 1X ONCE MC ; Start 02/13/18 at 05:00; Stop at 05:01 Lidocaine HCl (Xylocaine-Mpf 2% Vial) 2 ml STK-MED ONCE .ROUTE ; Start at 13:22; Stop 02/11/18 at 13:23; Status DC Lidocaine HCl (Xylocaine-Mpf 2% Vial) 2 ml STK-MED ONCE .ROUTE ; Start at 14:00; Stop 02/12/18 at 08:48; Status DC Active Scripts Active Percocet 10-325 Mg Tablet (Oxycodone/Acetaminophen) 1 Each Tablet 1 Tab PO Q4HRS Brilinta (Ticagrelor) 90 Mg Tablet 90 Mg PO BID 30 Days Morphine Sulfate Er (Morphine Sulfate) 15 Mg Tablet.er 15 Mg PO BID Reported Brilinta (Ticagrelor) 90 Mg Tablet 90 Mg PO BID Lidocaine 1 Each Adh..patch 1 Each TP PRN DAILY PRN Calcitriol 0.25 Mcg Capsule 1 Cap PO DAILY Tegretol (Carbamazepine) 200 Mg Tablet 1 Tab PO BID Tramadol Hcl 50 Mg Tablet 50 Mg PO Q4HRS PRN Lantus Solostar (Insulin Glargine,Hum.rec.anlog) 100 Unit/1 Ml Insuln.pen 22 Unit SQ QHS Diflucan (Fluconazole) 100 Mg Tablet 100 Mg PO PRN Carvedilol 3.125 Mg Tablet 12.5 Mg PO BID Erythromycin (Erythromycin Base) 250 Mg Capsule.dr 250 Mg PO BID Cardizem Cd (Diltiazem Hcl) 180 Mg Cap.er.24h 120 Mg PO DAILY Amiodarone Hcl 200 Mg Tablet 1 Tab PO DAILY Nystatin 15 Gm Powder 1 Susanna TP PRN BID PRN Proventil Hfa Inhaler (Albuterol Sulfate) 6.7 Gm Hfa.aer.ad 2 Puff IH BID PRN Zofran (Ondansetron Hcl) 4 Mg Tablet 4 Mg PO Q6-8HRS PRN Nephro-Shabbir Tablet (Folic Acid/Vitamin B Comp W-C) 0.8 Mg Tablet 1 Tab PO DAILY Tricor (Fenofibrate Nanocrystallized) 145 Mg Tablet 1 Tab PO HS Lipitor (Atorvastatin Calcium) 80 Mg Tablet 80 Mg PO HS Niacin 500 Mg Tablet 500 Mg PO HS Novolog (Insulin Aspart) 100 Unit/1 Ml Cartridge 0 SQ TIDAC sliding scale Aspirin 325 Mg Tablet 325 Mg PO DAILY Furosemide 80 Mg Tablet 80 Mg PO BID Docusate Sodium 100 Mg Capsule 1 Cap PO PRN PRN Nitrostat (Nitroglycerin) 0.4 Mg Tab.subl 0.4 Mg SL PRN Q5MIN PRN Take as needed for chest pain Vitals/I & O Vital Sign - Last 24 Hours 02/11/18 02/11/18 02/11/18 02/11/18 11:46 15:30 17:59 20:00 Pulse 64 B/P (MAP) 129/60 Pulse Ox 96 O2 Delivery Room Air Room Air Nasal Cannula O2 Flow Rate 2.0 02/11/18 02/11/18 02/11/18 02/11/18 20:58 23:27 23:39 23:57 Temp 98.7 98.7 Pulse 79 Resp 18 B/P (MAP) 123/52 (75) Pulse Ox 97 O2 Delivery Room Air Room Air Room Air Room Air 02/12/18 02/12/18 02/12/18 02/12/18 00:58 03:49 06:55 09:58 Resp 16 O2 Delivery Room Air Room Air Room Air 02/12/18 10:04 Pulse 80 B/P (MAP) 117/54 Intake and Output 02/11/18 02/11/18 02/12/18 15:00 23:00 07:00 Intake Total 250 ml 0 ml Output Total 450 ml Balance 250 ml -450 ml 0 ml QUIN BARRY MD Feb 12, 2018 11:33
--- NOTE | 2018-02-12 12:10 | RAD ---
Radionuclide hepatobiliary scan, 02/12/2018: HISTORY: Chronic nausea, abdominal pain Following IV injection of 5.5 mCi of technetium 99m Choletec there was prompt uptake of the radionuclide from the blood stream by the liver. Activity is present in the bile ducts, gallbladder and small bowel at 15 minutes. Additional imaging of the gallbladder was then performed following oral ingestion of the Ensure liquid supplement. This was used as a replacement for cholecystokinin due to the current unavailability of cholecystokinin. The gallbladder ejection fraction was calculated at 40 percent, which is in the borderline low range. IMPRESSION: 1. No evidence of cystic duct or common bile duct obstruction. 2. The gallbladder ejection fraction is 40 percent. Electronically signed by: Ronald Levy MD (02/12/2018 12:07 PM) [facility]
[2018-02-12] MEDS: AMIODARONE HCL 200 MG TABLET. PO SCH (12:25)
--- NOTE | 2018-02-12 13:05 | PDOC ---
Infectious Disease Note Subjective Subjective + vision loss. Had eye appt scheduled prior to admission. + diarrhea with incontinence. Denies N/V at the moment Denies cramps/bloating Denies dizziness/tinnitus No fever last 24 hours Right groin pain-stable No Rash/SOA ROS ROS per HPI otherwise neg Vital Sign Vital Signs Vital Signs Date Time Temp Pulse Resp B/P (MAP) Pulse Ox O2 Delivery O2 Flow Rate FiO2 02/12/18 12:26 Room Air 02/12/18 12:25 80 117/54 02/12/18 11:00 98.1 18 97 98.1 02/11/18 20:00 2.0 Physical Exam PHYSICAL EXAM GENERAL: Propped up in bed, alert, eating HENT: OC/Op- dry LUNGS: Clear. HEART: S1, S2 regular. ABDOMEN: Soft, NT, ND EXTREMITIES: Left BKA. RLE less swollen and red; + wrinkles. wound vac in place Heel without wound NEUROLOGIC: Alert, responds appropriately SKIN: without rash Tunnelled LIJ (01/29) clean Labs Lab Laboratory Tests Test 02/11/18 21:17 02/12/18 05:00 02/12/18 10:15 02/12/18 11:06 Glucose (Fingerstick) 150 mg/dL (70-99) 179 mg/dL (70-99) 235 mg/dL (70-99) White Blood Count 11.0 x10^3/uL (4.0-11.0) Red Blood Count 2.35 x10^6/uL (3.50-5.40) Hemoglobin 7.4 g/dL (12.0-15.5) Hematocrit 22.3 % (36.0-47.0) Mean Corpuscular Volume 95 fL (79-100) Mean Corpuscular Hemoglobin 32 pg (25-35) Mean Corpuscular Hemoglobin Concent 33 g/dL (31-37) Red Cell Distribution Width 17.8 % (11.5-14.5) Platelet Count 341 x10^3/uL (140-400) Neutrophils (%) (Auto) 79 % (31-73) Lymphocytes (%) (Auto) 10 % (24-48) Monocytes (%) (Auto) 11 % (0-9) Eosinophils (%) (Auto) 0 % (0-3) Basophils (%) (Auto) 0 % (0-3) Neutrophils # (Auto) 8.7 x10^3uL (1.8-7.7) Lymphocytes # (Auto) 1.1 x10^3/uL (1.0-4.8) Monocytes # (Auto) 1.2 x10^3/uL (0.0-1.1) Eosinophils # (Auto) 0.0 x10^3/uL (0.0-0.7) Basophils # (Auto) 0.0 x10^3/uL (0.0-0.2) Sodium Level 140 mmol/L (136-145) Potassium Level 3.4 mmol/L (3.5-5.1) Chloride Level 102 mmol/L (98-107) Carbon Dioxide Level 30 mmol/L (21-32) Anion Gap 8 (6-14) Blood Urea Nitrogen 11 mg/dL (7-20) Creatinine 3.1 mg/dL (0.6-1.0) Estimated GFR (Cockcroft-Gault) 15.8 Glucose Level 176 mg/dL (70-99) Calcium Level 8.4 mg/dL (8.5-10.1) Micro 01/26/18 Blood Culture - Preliminary, Resulted NO GROWTH AFTER 4 DAYS 01/27 ANAEROBIC RES 1 Preliminary No anaerobes recovered in 24 hours. AEROBIC RES 1 Final Klebsiella pneumoniae 02/05 BC pending Objective Assessment Fever - better - blood cult 02/06 neg Leukocytosis ? reactive from GI bleed,- despite Vanc/Cefepime better with Zyvox/ gent/Flagyl Mild encephalopathy - ? med related Right leg surgery site infection s/p excisional debridement; muscle flap & wound VAC placement on 01/27. Klebsiella (R amp) - s/p repeat I and D on 02/01 and 02/11 of necrotic skin and subcutaneous tissue. - 01/26. gram stain: GPC and GNR -- mixed chinedu. PAD s/p leg bypass on 01/06 ESRD Multiple antibiotic allergies Amiodarone therapy h/o VRE, MRSA, c. diff Nausea and vomiting s/p EGD 02/05. non-erosive gastritis. some better but ? Abnormal Abd U/S - lipase normal Anemia s/p PRBC Visual changes Diarrhea Plan Plan of Care Cefepime Zyvox with h/o VRE Gent. random trough 3.6 Flagyl 02/09 Optho eval - will need to be outpatient Probiotics Local wound care Check stool for c. diff Supportive care LT[facility] soon Attending Co-Sign The patient was seen and interviewed as well as examined at the bedside. The chart was reviewed. The case was discussed. Agree with the plan of care. pt cannot see, likely cataract but may have retinal detachment or bleed with retinopathy, need to be transfered to [facility] for ophthalmology KYLEIGH QUEEN APRN Feb 12, 2018 13:05 DANDY LÓPEZ MD Feb 12, 2018 14:25
[2018-02-12] MEDS: PROCHLORPERAZINE 10 MG/2 ML VIAL. IV PRN (13:19)
[2018-02-12 15:00] VITALS: BP 102/45
--- NOTE | 2018-02-12 15:31 | PDOC ---
Subjective: Subjective: Pt reports continued nausea, though she states she was able to eat half of a chicken sandwich last night. She did have significant dry-heaving. She has noticed pain in her groin recently. She also reports diarrhea and fecal incontinence over the past 2 days. Prior to this, she states she had gone 15 days without a BM. She has not yet had stool studies done. Objective: Vital Signs: Vital Signs Date Time Temp Pulse Resp B/P (MAP) Pulse Ox O2 Delivery O2 Flow Rate FiO2 02/12/18 12:26 Room Air 02/12/18 12:25 80 117/54 02/12/18 11:00 98.1 18 97 98.1 02/11/18 20:00 2.0 Labs: Laboratory Tests Test 02/11/18 21:17 02/12/18 05:00 02/12/18 10:15 02/12/18 11:06 Glucose (Fingerstick) 150 mg/dL 179 mg/dL 235 mg/dL White Blood Count 11.0 x10^3/uL Red Blood Count 2.35 x10^6/uL Hemoglobin 7.4 g/dL Hematocrit 22.3 % Mean Corpuscular Volume 95 fL Mean Corpuscular Hemoglobin 32 pg Mean Corpuscular Hemoglobin Concent 33 g/dL Red Cell Distribution Width 17.8 % Platelet Count 341 x10^3/uL Neutrophils (%) (Auto) 79 % Lymphocytes (%) (Auto) 10 % Monocytes (%) (Auto) 11 % Eosinophils (%) (Auto) 0 % Basophils (%) (Auto) 0 % Neutrophils # (Auto) 8.7 x10^3uL Lymphocytes # (Auto) 1.1 x10^3/uL Monocytes # (Auto) 1.2 x10^3/uL Eosinophils # (Auto) 0.0 x10^3/uL Basophils # (Auto) 0.0 x10^3/uL Sodium Level 140 mmol/L Potassium Level 3.4 mmol/L Chloride Level 102 mmol/L Carbon Dioxide Level 30 mmol/L Anion Gap 8 Blood Urea Nitrogen 11 mg/dL Creatinine 3.1 mg/dL Estimated GFR (Cockcroft-Gault) 15.8 Glucose Level 176 mg/dL Calcium Level 8.4 mg/dL Current Medications Medications (Trade) Dose Ordered Sig/Martin Route PRN Reason Start Time Stop Time Status Last Admin Dose Admin Hydromorphone HCl (Dilaudid) 2 mg 1X ONCE IV 01/26/18 22:00 01/26/18 22:01 DC 01/26/18 22:39 Vancomycin HCl (Vanco Per Pharmacy) 1 each PRN DAILY PRN MC SEE COMMENTS 01/26/18 22:45 02/01/18 11:41 DC 01/31/18 17:20 Vancomycin HCl 1.75 gm/Sodium Chloride 500 ml @ 250 mls/hr 1X ONCE IV 01/26/18 23:00 01/27/18 00:59 DC 01/26/18 23:53 Ondansetron HCl (Zofran) 4 mg PRN Q8HRS PRN IV NAUSEA/VOMITING 1ST CHOICE 01/26/18 23:15 01/27/18 23:14 DC Sodium Chloride 1,000 ml @ 75 mls/hr [id number] IV 01/26/18 23:30 01/27/18 23:29 DC 01/27/18 00:39 Pharmacy Consult (Cben Med Screen By Rx) 1 each 1X ONCE MC 01/27/18 01:00 01/27/18 01:01 Cancel Influenza Virus Vaccine (Afluria Trivalent [id number] Syringe) 0.5 ml ONCE ONCE VAX IM 01/27/18 09:00 01/27/18 09:01 DC 01/27/18 09:00 Vancomycin HCl (Vancomycin Random Level) 1 each 1X ONCE 01/28/18 05:00 01/28/18 05:01 DC 01/28/18 05:00 Hydromorphone HCl (Dilaudid) 1 mg PRN Q3HRS PRN IV SEVERE PAIN 01/27/18 03:30 02/12/18 12:26 Ondansetron HCl (Zofran) 4 mg PRN Q6HRS PRN IV NAUSEA/VOMITING 01/27/18 10:45 01/27/18 18:00 DC Fentanyl Citrate (Fentanyl 2ml Vial) 25 mcg PRN Q5MIN PRN IV MILD PAIN 01/27/18 10:45 01/27/18 18:00 DC Fentanyl Citrate (Fentanyl 2ml Vial) 50 mcg PRN Q5MIN PRN IV MODERATE TO SEVERE PAIN 01/27/18 10:45 01/27/18 18:00 DC Morphine Sulfate (Morphine Sulfate) 1 mg PRN Q10MIN PRN IV SEVERE PAIN 01/27/18 10:45 01/27/18 18:00 DC 01/27/18 16:28 Ringer's Solution 1,000 ml @ 30 mls/hr Q24H IV 01/27/18 10:35 01/27/18 19:36 DC 01/27/18 10:35 Lidocaine HCl (Xylocaine-Mpf 1% 2ml Vial) 2 ml 1X PRN PRN ID IV START 01/27/18 10:45 01/27/18 18:00 DC Hydromorphone HCl (Dilaudid) 0.5 mg PRN Q10MIN PRN IV SEV PAIN, Second choice 01/27/18 10:45 01/27/18 18:00 DC 01/27/18 15:59 Prochlorperazine Edisylate (Compazine) 5 mg PACU PRN PRN IV NAUSEA, MRX1 01/27/18 10:45 01/27/18 18:00 DC Amiodarone HCl (Cordarone) 200 mg DAILY PO 01/27/18 12:30 02/12/18 12:25 Aspirin (Anthony Aspirin) 325 mg DAILY PO 01/27/18 12:30 01/28/18 14:26 DC 01/28/18 09:13 Carbamazepine (TEGretol) 200 mg BID PO 01/27/18 12:30 02/12/18 10:07 Carvedilol (Coreg) 12.5 mg BIDWMEALS PO 01/27/18 12:30 02/12/18 10:04 Vitamin B Complex/ Vitamin C (Melly-Shabbir) 1 tab DAILY PO 01/27/18 12:30 02/12/18 10:04 Furosemide (Lasix) 80 mg [id number] PO 01/27/18 12:30 02/12/18 14:23 Insulin Glargine (Lantus) 22 units QHS SQ 01/27/18 21:00 02/06/18 22:21 Morphine Sulfate (Ms Contin) 15 mg BID PO 01/27/18 12:30 02/12/18 09:58 Nitroglycerin (Nitrostat) 0.4 mg PRN Q5MIN PRN SL CHEST PAIN 01/27/18 12:00 Nystatin (Nystop) 1 erich PRN BID PRN TP SKIN BREAKDOWN 01/27/18 12:00 Tramadol HCl (Ultram) 50 mg PRN Q4HRS PRN PO HEADACHE 01/27/18 12:00 02/08/18 04:36 Non-Formulary Medication (Albuterol Sulfate (Proventil Hfa Inhaler)) 2 puff BID PRN IH FOR ASTHMA 01/27/18 12:00 UNV Atorvastatin Calcium (Lipitor) 80 mg QHS PO 01/27/18 21:00 02/11/18 21:04 Calcitriol (Rocaltrol) 0.25 mcg DAILY PO 01/27/18 12:30 02/12/18 09:57 Diltiazem HCl (Cardizem 24hr Cd) 120 mg DAILY PO 01/27/18 12:30 02/12/18 12:24 Erythromycin (E-Mycin) 250 mg BID PO 01/27/18 21:00 02/12/18 09:58 Fenofibrate (Lofibra) 134 mg QHS PO 01/27/18 21:00 02/11/18 20:58 Non-Formulary Medication (Fluconazole (Diflucan)) 100 mg PRN PO 01/27/18 12:00 UNV Lidocaine (Lidoderm) 1 patch PRN DAILY PRN TD PAIN 01/27/18 09:00 Niacin (Slo-Niacin) 500 mg QHS PO 01/27/18 21:00 02/11/18 20:59 Ondansetron HCl (Zofran Odt) 4 mg PRN Q6HRS PRN PO NAUSEA/VOMITING 01/27/18 12:15 02/07/18 16:53 Miscellaneous (Lidoderm Patch Removal) 1 ea QHS MC 01/27/18 21:00 02/05/18 20:57 Albuterol Sulfate (Ventolin Neb Soln) 2.5 mg PRN BID PRN NEB SHORTNESS OF BREATH 01/27/18 12:30 01/27/18 21:59 Lidocaine HCl (Lidocaine 1% 50ml Vial) 50 ml 1X ONCE INJ 01/27/18 12:45 01/27/18 12:46 DC 01/27/18 14:06 Hydromorphone HCl (Dilaudid) 2 mg STK-MED ONCE .ROUTE 01/27/18 12:36 01/27/18 12:38 DC Propofol 20 ml @ As Directed STK-MED ONCE IV 01/27/18 12:38 01/27/18 12:39 DC Bacitracin 64597 unit/Sodium Chloride 3,000 ml @ 0 mls/hr 1X ONCE IR 01/27/18 13:15 01/27/18 13:16 Cancel Dexamethasone Sodium Phosphate (Decadron) 20 mg STK-MED ONCE .ROUTE 01/27/18 13:11 01/27/18 13:12 DC Ondansetron HCl (Zofran) 4 mg STK-MED ONCE .ROUTE 01/27/18 13:11 01/27/18 13:12 DC Sevoflurane (Ultane) 30 ml STK-MED ONCE IH 01/27/18 13:11 01/27/18 13:12 DC Bacitracin (Bacitracin) 50,000 unit STK-MED ONCE IRR 01/27/18 12:14 01/27/18 13:16 DC 01/27/18 13:58 Clopidogrel Bisulfate (Plavix) 75 mg DAILYWBKFT PO 01/28/18 08:00 01/28/18 14:28 DC 01/28/18 09:13 Hydromorphone HCl (Dilaudid) 2 mg STK-MED ONCE .ROUTE 01/27/18 15:38 01/27/18 15:40 DC Gentamicin Sulfate 235 mg/ Dextrose 105.875 ml @ 105.875 mls/hr 1X ONCE IV 01/27/18 16:00 01/27/18 16:59 DC 01/27/18 19:56 Lactobacillus Rhamnosus (Culturelle) 1 cap BID PO 01/27/18 21:00 02/12/18 09:57 Cefepime HCl 1 gm/ Dextrose 50 ml @ 100 mls/hr DAILY IV 01/29/18 09:00 UNV Metronidazole 100 ml @ 100 mls/hr Q12HR IV 01/28/18 10:00 02/03/18 10:49 DC 02/02/18 21:00 Cefepime HCl (Maxipime) 1 gm Q24H IVP 01/28/18 10:00 02/04/18 12:02 DC 02/03/18 10:54 Lidocaine HCl (Xylocaine-Mpf 2% Vial) 2 ml STK-MED ONCE .ROUTE 01/28/18 11:41 01/28/18 11:42 DC Sodium Chloride 1,000 ml @ 1,000 mls/hr Q1H PRN IV hypotension 01/28/18 12:09 01/28/18 18:08 DC Info (PHARMACY MONITORING -- do not chart) 1 each PRN DAILY PRN MC SEE COMMENTS 01/28/18 12:15 UNV Info (PHARMACY MONITORING -- do not chart) 1 each PRN DAILY PRN MC SEE COMMENTS 01/28/18 12:15 01/31/18 09:10 DC Lidocaine HCl (Xylocaine-Mpf 2% Vial) 2 ml 1X ONCE INJ 01/28/18 12:15 01/28/18 12:21 DC Ticagrelor (Brilinta) 90 mg BID PO 01/28/18 21:00 02/12/18 09:00 Diphenhydramine HCl (Benadryl) 25 mg PRN Q6HRS PRN PO ITCHING 01/28/18 14:15 Aspirin (Ecotrin) 81 mg DAILYWBKFT PO 01/29/18 08:00 02/12/18 10:07 Insulin Human Lispro (HumaLOG) 0-5 UNITS TIDWMEALS SQ 01/28/18 17:00 02/12/18 12:31 Dextrose (Dextrose 50%-Water Syringe) 12.5 gm PRN Q15MIN PRN IV SEE COMMENTS 01/28/18 14:45 02/05/18 08:50 Hydralazine HCl (Apresoline) 10 mg PRN TID PRN PO hypertension 01/28/18 14:45 Oxycodone/ Acetaminophen (Percocet 10/325) 1 tab PRN Q4HRS PRN PO pain SEVERE 01/29/18 07:45 02/10/18 17:24 Promethazine HCl (Phenergan Supp) 12.5 mg 1X ONCE LA 01/29/18 12:15 01/29/18 12:36 DC Promethazine HCl (Phenergan Im) 12.5 mg 1X ONCE IM 01/29/18 12:45 01/29/18 12:46 DC Lidocaine/ Epinephrine (LIDOCAINE 1%-EPI 1:100,000 Multi-Dose) 20 ml STK-MED ONCE .ROUTE 01/29/18 12:45 01/29/18 12:47 DC Heparin Sodium (Porcine) (Hep Lock Adult) 500 unit STK-MED ONCE IV 01/29/18 12:45 01/29/18 12:47 DC Morphine Sulfate (Morphine Sulfate) 10 mg STK-MED ONCE .ROUTE 01/29/18 13:23 01/29/18 13:25 DC Midazolam HCl (Versed) 2 mg STK-MED ONCE .ROUTE 01/29/18 13:23 01/29/18 13:25 DC Morphine Sulfate (Morphine Sulfate) 1 mg PRN Q10MIN PRN IV SEVERE PAIN 02/01/18 07:00 02/02/18 06:59 DC 02/01/18 15:46 Ringer's Solution 1,000 ml @ 30 mls/hr Q24H IV 02/01/18 07:00 02/01/18 18:59 DC Lidocaine HCl (Xylocaine-Mpf 1% 2ml Vial) 2 ml PRN 1X PRN ID PRIOR TO IV START 02/01/18 07:00 02/02/18 06:59 DC Hydromorphone HCl (Dilaudid) 0.5 mg PRN Q10MIN PRN IV SEV PAIN, Second choice 02/01/18 07:00 02/02/18 06:59 DC 02/01/18 16:08 Prochlorperazine Edisylate (Compazine) 5 mg PACU PRN PRN IV NAUSEA, MRX1 02/01/18 07:00 02/02/18 06:59 DC Lidocaine/ Epinephrine (LIDOCAINE 1%-EPI 1:100,000 Multi-Dose) 8 ml 1X ONCE IJ 01/29/18 14:00 01/29/18 14:17 DC 01/29/18 14:01 Heparin Sodium (Porcine) (Hep Lock Adult) 500 unit 1X ONCE IV 01/29/18 14:00 01/29/18 14:17 DC 01/29/18 14:04 Morphine Sulfate (Morphine Sulfate) 5 mg 1X ONCE IV 01/29/18 14:00 01/29/18 14:17 DC 01/29/18 14:01 Ondansetron HCl (Zofran) 4 mg PRN Q6HRS PRN IV NAUSEA/VOMITING 1ST CHOICE 01/29/18 14:45 02/09/18 08:22 Vancomycin HCl 500 mg/Sodium Chloride 100 ml @ 100 mls/hr 1X ONCE IV 01/29/18 18:00 01/29/18 18:59 DC 01/29/18 21:04 Sodium Chloride 1,000 ml @ 1,000 mls/hr Q1H PRN IV hypotension 01/30/18 13:09 01/30/18 19:08 DC Sodium Chloride (Normal Saline Flush) 10 ml 1X PRN PRN IV AP catheter pack 01/30/18 13:15 01/31/18 13:14 DC Sodium Chloride (Normal Saline Flush) 10 ml 1X PRN PRN IV [employer]UC[employer]GRAM [employer] catheter pack 01/30/18 13:15 01/31/18 13:14 DC Sodium Chloride 1,000 ml @ 400 mls/hr Q2H30M PRN IV PATENCY 01/30/18 13:09 01/31/18 01:08 DC Info (PHARMACY MONITORING -- do not chart) 1 each PRN DAILY PRN MC SEE COMMENTS 01/30/18 13:15 01/30/18 13:17 DC Info (PHARMACY MONITORING -- do not chart) 1 each PRN DAILY PRN MC SEE COMMENTS 01/30/18 13:15 02/04/18 07:27 DC Lidocaine HCl (Lidocaine 1% 50ml Vial) 50 ml 1X ONCE INJ 01/30/18 15:45 01/30/18 15:46 DC Vancomycin HCl 500 mg/Sodium Chloride 100 ml @ 100 mls/hr ONCE ONCE IV 01/30/18 18:00 01/30/18 18:59 DC 01/30/18 20:49 Cefazolin Sodium 1 gm/Sodium Chloride 500 ml @ 500 mls/hr 1X ONCE IRR 02/01/18 06:00 02/01/18 06:59 DC Lidocaine HCl (Xylocaine-Mpf 2% Vial) 2 ml STK-MED ONCE .ROUTE 01/28/18 12:00 02/01/18 08:30 DC Darbepoetin Mauricio (Aranesp) 60 mcg [id number] SQ 02/01/18 21:00 02/08/18 20:41 Cellulose (Surgicel Fibrillar 1x2) 1 each STK-MED ONCE .ROUTE 02/01/18 12:05 02/01/18 13:06 DC Lidocaine HCl (Xylocaine 1% Pf 30ml Vial) 30 ml 1X ONCE INJ 02/01/18 13:15 02/01/18 13:18 DC Sodium Chloride 1,000 ml @ 75 mls/hr [id number] IV 02/01/18 13:45 02/02/18 16:43 DC 02/02/18 00:15 Morphine Sulfate (Morphine Sulfate) 10 mg STK-MED ONCE .ROUTE 02/01/18 14:24 02/01/18 14:25 DC Midazolam HCl (Versed) 2 mg STK-MED ONCE .ROUTE 02/01/18 14:24 02/01/18 14:25 DC Midazolam HCl (Versed) 2 mg STK-MED ONCE .ROUTE 02/01/18 14:25 02/01/18 14:26 DC Propofol 20 ml @ As Directed STK-MED ONCE IV 02/01/18 14:25 02/01/18 14:26 DC Dexamethasone Sodium Phosphate (Decadron) 20 mg STK-MED ONCE .ROUTE 02/01/18 14:25 02/01/18 14:26 DC Ondansetron HCl (Zofran) 4 mg STK-MED ONCE .ROUTE 02/01/18 14:25 02/01/18 14:26 DC Bacitracin (Bacitracin) 50,000 unit STK-MED ONCE IRR 02/01/18 13:32 02/01/18 14:32 DC 02/01/18 14:55 Vancomycin HCl 500 mg/Sodium Chloride 100 ml @ 100 mls/hr QTUTHSA IV 02/02/18 16:00 02/04/18 12:02 DC 02/02/18 16:15 Sodium Chloride 1,000 ml @ 1,000 mls/hr Q1H PRN IV hypotension 02/02/18 09:39 02/02/18 15:38 DC Albumin Human 200 ml @ 200 mls/hr 1X PRN PRN IV Hypotension 02/02/18 09:45 02/02/18 15:44 DC Sodium Chloride 1,000 ml @ 400 mls/hr Q2H30M PRN IV PATENCY 02/02/18 09:39 02/02/18 21:38 DC Info (PHARMACY MONITORING -- do not chart) 1 each PRN DAILY PRN MC SEE COMMENTS 02/02/18 09:45 02/04/18 07:28 DC Info (PHARMACY MONITORING -- do not chart) 1 each PRN DAILY PRN MC SEE COMMENTS 02/02/18 09:45 UNV Prochlorperazine Edisylate (Compazine) 10 mg PRN Q6HRS PRN IV NAUSEA/VOMITING 2ND CHOICE 02/02/18 11:30 02/12/18 13:19 Vancomycin HCl (Vanco Per Pharmacy) 1 each PRN DAILY PRN MC SEE COMMENTS 02/02/18 14:00 02/04/18 12:02 DC 02/02/18 13:57 Famotidine (Pepcid Vial) 20 mg DAILY IVP 02/03/18 10:00 02/08/18 11:45 DC 02/08/18 09:00 Alteplase, Recombinant (Cathflo) 2 mg 1X ONCE INT CAT 02/04/18 03:00 02/04/18 03:01 DC 02/04/18 02:56 Sodium Chloride 1,000 ml @ 1,000 mls/hr Q1H PRN IV hypotension 02/04/18 07:15 02/04/18 13:14 DC Albumin Human 200 ml @ 200 mls/hr 1X PRN PRN IV Hypotension 02/04/18 07:15 02/04/18 13:14 DC 02/04/18 11:26 Acetaminophen (Tylenol) 500 mg 1X PRN PRN PO MILD PAIN / TEMP 02/04/18 07:15 02/05/18 07:14 DC Diphenhydramine HCl (Benadryl) 25 mg 1X PRN PRN IV ITCHING 02/04/18 07:15 02/05/18 07:14 DC Diphenhydramine HCl (Benadryl) 25 mg 1X PRN PRN IV ITCHING 02/04/18 07:15 02/05/18 07:14 DC Sodium Chloride 1,000 ml @ 400 mls/hr Q2H30M PRN IV PATENCY 02/04/18 07:15 02/04/18 19:14 DC Info (PHARMACY MONITORING -- do not chart) 1 each PRN DAILY PRN MC SEE COMMENTS 02/04/18 07:15 Cancel Lidocaine HCl (Xylocaine-Mpf 2% Vial) 2 ml STK-MED ONCE .ROUTE 02/04/18 09:43 02/04/18 09:44 DC Docusate Sodium (Colace) 100 mg PRN DAILY PRN PO CONSTIPATION 02/04/18 10:30 02/07/18 22:13 Ceftriaxone Sodium 2 gm/ Dextrose 100 ml @ 200 mls/hr Q24H IV 02/04/18 13:00 02/05/18 11:49 DC 02/04/18 14:24 Morphine Sulfate (Morphine Sulfate) 1 mg PRN Q10MIN PRN IV SEVERE PAIN 02/05/18 07:00 02/06/18 06:59 DC Ringer's Solution 1,000 ml @ 30 mls/hr Q24H IV 02/05/18 07:00 02/05/18 18:59 DC Lidocaine HCl (Xylocaine-Mpf 1% 2ml Vial) 2 ml PRN 1X PRN ID IV START 02/05/18 07:00 02/06/18 06:59 DC Hydromorphone HCl (Dilaudid) 0.5 mg PRN Q10MIN PRN IV SEV PAIN, Second choice 02/05/18 07:00 02/06/18 06:59 DC Prochlorperazine Edisylate (Compazine) 5 mg PACU PRN PRN IV NAUSEA, MRX1 02/05/18 07:00 02/06/18 06:59 DC Lidocaine HCl (Xylocaine-Mpf 2% Vial) 2 ml STK-MED ONCE .ROUTE 02/04/18 10:00 02/05/18 08:19 DC Sodium Chloride 1,000 ml @ 75 mls/hr [id number] IV 02/05/18 10:30 02/08/18 15:20 DC 02/06/18 07:00 Cefepime HCl 1 gm/ Dextrose 50 ml @ 100 mls/hr DAILY IV 02/06/18 09:00 UNV Vancomycin HCl (Vanco Per Pharmacy) 1 each PRN DAILY PRN MC SEE COMMENTS 02/05/18 12:00 02/09/18 09:50 DC 02/08/18 14:35 Cefepime HCl (Maxipime) 1 gm Q24H IVP 02/05/18 12:00 02/09/18 09:35 DC 02/08/18 14:49 Propofol 20 ml @ As Directed STK-MED ONCE IV 02/05/18 12:08 02/05/18 12:09 DC Lidocaine HCl (Xylocaine-Mpf 2% Vial) 2 ml STK-MED ONCE .ROUTE 02/05/18 12:08 02/05/18 12:09 DC Vancomycin HCl 1.5 gm/Sodium Chloride 500 ml @ 250 mls/hr 1X ONCE IV 02/05/18 14:00 02/05/18 15:59 DC 02/05/18 14:05 Vancomycin HCl (Vancomycin Random Level) 1 each 1X ONCE MC 02/06/18 05:00 02/06/18 05:01 DC 02/06/18 05:00 Sodium Chloride 1,000 ml @ 1,000 mls/hr Q1H PRN IV hypotension 02/06/18 08:12 02/06/18 14:11 DC Sodium Chloride 1,000 ml @ 400 mls/hr Q2H30M PRN IV PATENCY 02/06/18 08:12 02/06/18 20:11 DC Info (PHARMACY MONITORING -- do not chart) 1 each PRN DAILY PRN MC SEE COMMENTS 02/06/18 08:15 UNV Info (PHARMACY MONITORING -- do not chart) 1 each PRN DAILY PRN MC SEE COMMENTS 02/06/18 08:15 UNV Lidocaine HCl (Xylocaine-Mpf 1% 2ml Vial) 2 ml 1X ONCE ID 02/06/18 08:30 02/06/18 08:31 DC 02/06/18 08:30 Lidocaine HCl (Xylocaine-Mpf 2% Vial) 2 ml STK-MED ONCE .ROUTE 02/06/18 08:32 02/06/18 08:33 DC Diphenhydramine HCl (Benadryl) 50 mg 1X ONCE IVP 02/06/18 09:00 02/06/18 09:02 DC 02/06/18 09:10 Vancomycin HCl (Vancomycin Random Level) 1 each 1X ONCE 02/08/18 05:00 02/08/18 05:01 DC 02/08/18 05:00 Lidocaine HCl (Xylocaine-Mpf 2% Vial) 2 ml STK-MED ONCE .ROUTE 02/06/18 09:00 02/08/18 07:54 DC Polyethylene Glycol (miraLAX PACKET) 17 gm DAILY PO 02/08/18 12:30 02/10/18 08:56 Famotidine (Pepcid) 20 mg QHS PO 02/08/18 21:00 02/11/18 20:59 Vancomycin HCl 500 mg/Sodium Chloride 100 ml @ 100 mls/hr QTUTHSA IV 02/09/18 16:00 02/09/18 16:00 DC Sodium Chloride 1,000 ml @ 1,000 mls/hr Q1H PRN IV hypotension 02/09/18 08:21 02/09/18 14:20 DC Sodium Chloride 1,000 ml @ 400 mls/hr Q2H30M PRN IV PATENCY 02/09/18 08:21 02/09/18 20:20 DC Info (PHARMACY MONITORING -- do not chart) 1 each PRN DAILY PRN MC SEE COMMENTS 02/09/18 08:30 UNV Info (PHARMACY MONITORING -- do not chart) 1 each PRN DAILY PRN MC SEE COMMENTS 02/09/18 08:30 Diphenhydramine HCl (Benadryl) 50 mg 1X ONCE IVP 02/09/18 08:30 02/09/18 08:31 DC 02/09/18 09:06 Lidocaine HCl (Xylocaine-Mpf 2% Vial) 2 ml STK-MED ONCE .ROUTE 02/09/18 08:40 02/09/18 08:41 DC Linezolid/Dextrose 300 ml @ 300 mls/hr Q12HR IV 02/09/18 10:00 02/12/18 09:56 Gentamicin Sulfate 1 each PRN DAILY PRN MC SEE COMMENTS 02/09/18 09:30 02/11/18 12:53 Metronidazole 100 ml @ 100 mls/hr Q8HRS IV 02/09/18 14:00 02/12/18 14:23 Gentamicin Sulfate 140 mg/ Dextrose 103.5 ml @ 207 mls/hr 1X ONCE IV 02/09/18 12:00 02/09/18 12:29 DC 02/09/18 12:26 Lubiprostone (Amitiza) 8 mcg BIDWMEALS PO 02/09/18 17:00 02/12/18 09:57 Gentamicin Sulfate 1 each 1X ONCE MC 02/11/18 06:00 02/11/18 06:01 DC 02/11/18 06:00 Hydromorphone HCl (Dilaudid) 2 mg 1X ONCE IV 02/10/18 10:30 02/10/18 10:31 DC Lidocaine HCl (Xylocaine-Mpf 2% Vial) 2 ml STK-MED ONCE .ROUTE 02/09/18 09:00 02/10/18 13:19 DC Alteplase, Recombinant (Cathflo) 2 mg 1X ONCE INT CAT 02/10/18 21:30 02/10/18 21:31 DC 02/10/18 22:18 Silver Sulfadiazine (Silvadene) 25 erich STK-MED ONCE TP 02/11/18 05:56 02/11/18 06:57 DC Lidocaine HCl (Xylocaine 1% Pf 30ml Vial) 30 ml STK-MED ONCE .ROUTE 02/11/18 05:57 02/11/18 06:58 DC Ondansetron HCl (Zofran) 4 mg PRN Q6HRS PRN IV NAUSEA/VOMITING 02/11/18 07:15 02/11/18 12:42 DC Fentanyl Citrate (Fentanyl 2ml Vial) 25 mcg PRN Q5MIN PRN IV MILD PAIN 02/11/18 07:15 02/11/18 12:39 DC Fentanyl Citrate (Fentanyl 2ml Vial) 50 mcg PRN Q5MIN PRN IV MODERATE TO SEVERE PAIN 02/11/18 07:15 02/11/18 12:40 DC Morphine Sulfate (Morphine Sulfate) 1 mg PRN Q10MIN PRN IV SEVERE PAIN 02/11/18 07:15 02/11/18 12:41 DC Ringer's Solution 1,000 ml @ 30 mls/hr Q24H IV 02/11/18 07:15 02/11/18 19:14 Cancel Lidocaine HCl (Xylocaine-Mpf 1% 2ml Vial) 2 ml PRN 1X PRN ID PRIOR TO IV START 02/11/18 07:15 02/11/18 12:40 DC Hydromorphone HCl (Dilaudid) 0.5 mg PRN Q10MIN PRN IV SEV PAIN, Second choice 02/11/18 07:15 02/11/18 12:40 DC Prochlorperazine Edisylate (Compazine) 5 mg PACU PRN PRN IV NAUSEA, MRX1 02/11/18 07:15 02/11/18 12:42 DC Sodium Chloride 1,000 ml @ 75 mls/hr [id number] IV 02/11/18 07:30 02/12/18 10:10 Propofol 20 ml @ As Directed STK-MED ONCE IV 02/11/18 07:20 02/11/18 07:21 DC Dexamethasone Sodium Phosphate (Decadron) 20 mg STK-MED ONCE .ROUTE 02/11/18 07:20 02/11/18 07:21 DC Famotidine (Pepcid Vial) 20 mg STK-MED ONCE .ROUTE 02/11/18 07:20 02/11/18 07:21 DC Lidocaine HCl (Lidocaine Pf 2% Vial) 5 ml STK-MED ONCE .ROUTE 02/11/18 07:20 02/11/18 07:21 DC Ondansetron HCl (Zofran) 4 mg STK-MED ONCE .ROUTE 02/11/18 07:20 02/11/18 07:21 DC Fentanyl Citrate (Fentanyl 2ml Vial) 100 mcg STK-MED ONCE .ROUTE 02/11/18 07:20 02/11/18 07:21 DC Midazolam HCl (Versed) 2 mg STK-MED ONCE .ROUTE 02/11/18 07:21 02/11/18 07:22 DC Ephedrine Sulfate (ePHEDrine PF IN SALINE SYRINGE) 50 mg STK-MED ONCE IV 02/11/18 08:22 02/11/18 08:23 DC Desflurane (Suprane) 30 ml STK-MED ONCE IH 02/11/18 08:41 02/11/18 08:42 DC Sodium Chloride 1,000 ml @ 1,000 mls/hr Q1H PRN IV hypotension 02/11/18 09:57 02/11/18 15:56 DC Albumin Human 200 ml @ 200 mls/hr 1X PRN PRN IV Hypotension 02/11/18 10:00 02/11/18 15:59 DC Sodium Chloride 1,000 ml @ 400 mls/hr Q2H30M PRN IV PATENCY 02/11/18 09:57 02/11/18 21:56 DC Info (PHARMACY MONITORING -- do not chart) 1 each PRN DAILY PRN MC SEE COMMENTS 02/11/18 10:00 UNV Info (PHARMACY MONITORING -- do not chart) 1 each PRN DAILY PRN MC SEE COMMENTS 02/11/18 10:00 UNV Lidocaine HCl (Xylocaine-Mpf 1% 2ml Vial) 2 ml 1X ONCE INJ 02/11/18 10:00 02/11/18 10:13 DC Gentamicin Sulfate 100 mg/ Dextrose 52.5 ml @ 105 mls/hr QTUTHSA IV 02/11/18 16:00 02/11/18 19:31 Gentamicin Sulfate 1 each 1X ONCE MC 02/13/18 05:00 02/13/18 05:01 Lidocaine HCl (Xylocaine-Mpf 2% Vial) 2 ml STK-MED ONCE .ROUTE 02/11/18 13:22 02/11/18 13:23 DC Lidocaine HCl (Xylocaine-Mpf 2% Vial) 2 ml STK-MED ONCE .ROUTE 02/11/18 14:00 02/12/18 08:48 DC Imaging: PIPIDA 02/12/18 IMPRESSION: 1. No evidence of cystic duct or common bile duct obstruction. 2. The gallbladder ejection fraction is 40 percent. PE: GEN: NAD EXTREM: RLE wound LUNGS: room air ABD: soft NEURO/PSYCH: A & O 3 A/P: S/p RLE bypass/infection Chronic anemia - stable Chronic nausea w/ h/o gastroparesis - on H2 bulmaro and e-mycin -Consider adding PPI HIDA with borderline gallbladder EF of 40%- pt with no pain during procedure. Cholecystectomy would not be necessary at this time. Diarrhea with fecal incontinence -Favor check C. Diff, add probiotic YULIYA PARADA Feb 12, 2018 15:31 CECE GRAHAM MD Feb 12, 2018 16:05
--- NOTE | 2018-02-12 16:06 | PDOC ---
SUBJECTIVE ROS Stable, states she may be transferring to [facility] to see an eye doctor OBJECTIVE Vital Signs Vital Signs Date Time Temp Pulse Resp B/P (MAP) Pulse Ox O2 Delivery O2 Flow Rate FiO2 02/12/18 12:26 Room Air 02/12/18 12:25 80 117/54 02/12/18 11:00 98.1 18 97 98.1 02/11/18 20:00 2.0 I & 0 Intake and Output 02/12/18 07:00 Intake Total 250 ml Output Total 450 ml Balance -200 ml Intake Oral 0 ml IV Total 250 ml Drainage Total 450 ml # Voids 2 # Bowel Movements 1 PHYSICAL EXAM Physical Exam General: No acute distress HEENT:OM moist Lungs: Clear to auscultation, Non labored Heart: Regular rate, Normal S1, Normal S2 Abdomen: Soft, No tenderness, PD catheter + Extremities: Lt BKA, Rt S/P Debridement and Muscle flap Changes of CVI+ RLE less swollen and red,Incision well-approx w/ alberto. Wound vac in place AV Shunt Rt arm SKIN: without rash Neuro: Grossly Normal Gu- no hartley DIAGNOSIS/ASSESSMENT Assessment & Plan ESRD -On PD at home Was switched to PD from HD On HD while inpatient , go back to PD when Home No Indication for HD today, Tomorrow as per her Schedule Right femoral surgical site infection- s/p operative debridement with muscle flap. As per vascular and ID Anemia- Stable DM- as per primary Decreased Vision- neuro evaluated , recommend Ophthal fu Recommended transfer to [facility] by Dr. Dexter ID COMMENT/RELEVANT DATA Meds Current Medications Medications (Trade) Dose Ordered Sig/Martin Start Time Stop Time Status Last Admin Dose Admin Acetaminophen (Tylenol) 500 mg 1X PRN PRN 02/04/18 07:15 02/05/18 07:14 DC Albumin Human 200 ml @ 200 mls/hr 1X PRN PRN 02/11/18 10:00 02/11/18 15:59 DC Albuterol Sulfate (Ventolin Neb Soln) 2.5 mg PRN BID PRN 01/27/18 12:30 01/27/18 21:59 2.5 MG Alteplase, Recombinant (Cathflo) 2 mg 1X ONCE 02/10/18 21:30 02/10/18 21:31 DC 02/10/18 22:18 2 MG Amiodarone HCl (Cordarone) 200 mg DAILY 01/27/18 12:30 02/12/18 12:25 200 MG Aspirin (Anthony Aspirin) 325 mg DAILY 01/27/18 12:30 01/28/18 14:26 DC 01/28/18 09:13 325 MG Aspirin (Ecotrin) 81 mg DAILYWBKFT 01/29/18 08:00 02/12/18 10:07 81 MG Atorvastatin Calcium (Lipitor) 80 mg QHS 01/27/18 21:00 02/11/18 21:04 80 MG Bacitracin (Bacitracin) 50,000 unit STK-MED ONCE 02/01/18 13:32 02/01/18 14:32 DC 02/01/18 14:55 50,000 UNIT Bacitracin 45954 unit/Sodium Chloride 3,000 ml @ 0 mls/hr 1X ONCE 01/27/18 13:15 01/27/18 13:16 Cancel Calcitriol (Rocaltrol) 0.25 mcg DAILY 01/27/18 12:30 02/12/18 09:57 0.25 MCG Carbamazepine (TEGretol) 200 mg BID 01/27/18 12:30 02/12/18 10:07 200 MG Carvedilol (Coreg) 12.5 mg BIDWMEALS 01/27/18 12:30 02/12/18 10:04 12.5 MG Cefazolin Sodium 1 gm/Sodium Chloride 500 ml @ 500 mls/hr 1X ONCE 02/01/18 06:00 02/01/18 06:59 DC Cefepime HCl (Maxipime) 1 gm Q24H 02/05/18 12:00 02/09/18 09:35 DC 02/08/18 14:49 1 GM Cefepime HCl 1 gm/ Dextrose 50 ml @ 100 mls/hr DAILY 02/06/18 09:00 UNV Ceftriaxone Sodium 2 gm/ Dextrose 100 ml @ 200 mls/hr Q24H 02/04/18 13:00 02/05/18 11:49 DC 02/04/18 14:24 200 MLS/HR Cellulose (Surgicel Fibrillar 1x2) 1 each STK-MED ONCE 02/01/18 12:05 02/01/18 13:06 DC Clopidogrel Bisulfate (Plavix) 75 mg DAILYWBKFT 01/28/18 08:00 01/28/18 14:28 DC 01/28/18 09:13 75 MG Darbepoetin Mauricio (Aranesp) 60 mcg WEEKLYHS 02/01/18 21:00 02/08/18 20:41 60 MCG Desflurane (Suprane) 30 ml STK-MED ONCE 02/11/18 08:41 02/11/18 08:42 DC Dexamethasone Sodium Phosphate (Decadron) 20 mg STK-MED ONCE 02/11/18 07:20 02/11/18 07:21 DC Dextrose (Dextrose 50%-Water Syringe) 12.5 gm PRN Q15MIN PRN 01/28/18 14:45 02/05/18 08:50 12.5 GM Diltiazem HCl (Cardizem 24hr Cd) 120 mg DAILY 01/27/18 12:30 02/12/18 12:24 120 MG Diphenhydramine HCl (Benadryl) 50 mg 1X ONCE 02/09/18 08:30 02/09/18 08:31 DC 02/09/18 09:06 50 MG Docusate Sodium (Colace) 100 mg PRN DAILY PRN 02/04/18 10:30 02/07/18 22:13 100 MG Ephedrine Sulfate (ePHEDrine PF IN SALINE SYRINGE) 50 mg STK-MED ONCE 02/11/18 08:22 02/11/18 08:23 DC Erythromycin (E-Mycin) 250 mg BID 01/27/18 21:00 02/12/18 09:58 250 MG Famotidine (Pepcid Vial) 20 mg STK-MED ONCE 02/11/18 07:20 02/11/18 07:21 DC Famotidine (Pepcid) 20 mg QHS 02/08/18 21:00 02/11/18 20:59 20 MG Fenofibrate (Lofibra) 134 mg QHS 01/27/18 21:00 02/11/18 20:58 134 MG Fentanyl Citrate (Fentanyl 2ml Vial) 100 mcg STK-MED ONCE 02/11/18 07:20 02/11/18 07:21 DC Furosemide (Lasix) 80 mg BID92 01/27/18 12:30 02/12/18 14:23 80 MG Gentamicin Sulfate 100 mg/ Dextrose 52.5 ml @ 105 mls/hr QTUTHSA 02/11/18 16:00 02/11/18 19:31 105 MLS/HR Gentamicin Sulfate 140 mg/ Dextrose 103.5 ml @ 207 mls/hr 1X ONCE 02/09/18 12:00 02/09/18 12:29 DC 02/09/18 12:26 207 MLS/HR Gentamicin Sulfate 235 mg/ Dextrose 105.875 ml @ 105.875 mls/hr 1X ONCE 01/27/18 16:00 01/27/18 16:59 DC 01/27/18 19:56 105.875 MLS/HR Gentamicin Sulfate 1 each 1X ONCE 02/13/18 05:00 02/13/18 05:01 Heparin Sodium (Porcine) (Hep Lock Adult) 500 unit 1X ONCE 01/29/18 14:00 01/29/18 14:17 DC 01/29/18 14:04 500 UNIT Hydralazine HCl (Apresoline) 10 mg PRN TID PRN 01/28/18 14:45 Hydromorphone HCl (Dilaudid) 0.5 mg PRN Q10MIN PRN 02/11/18 07:15 02/11/18 12:40 DC Influenza Virus Vaccine (Afluria Trivalent [id number] Syringe) 0.5 ml ONCE ONCE 01/27/18 09:00 01/27/18 09:01 DC 01/27/18 09:00 0.5 ML Info (PHARMACY MONITORING -- do not chart) 1 each PRN DAILY PRN 02/11/18 10:00 UNV Insulin Glargine (Lantus) 22 units QHS 01/27/18 21:00 02/06/18 22:21 8 UNITS Insulin Human Lispro (HumaLOG) 0-5 UNITS TIDWMEALS 01/28/18 17:00 02/12/18 12:31 3 UNITS Lactobacillus Rhamnosus (Culturelle) 1 cap BID 01/27/18 21:00 02/12/18 09:57 1 CAP Lidocaine (Lidoderm) 1 patch PRN DAILY PRN 01/27/18 09:00 Lidocaine HCl (Lidocaine 1% 50ml Vial) 50 ml 1X ONCE 01/30/18 15:45 01/30/18 15:46 DC Lidocaine HCl (Lidocaine Pf 2% Vial) 5 ml STK-MED ONCE 02/11/18 07:20 02/11/18 07:21 DC Lidocaine HCl (Xylocaine 1% Pf 30ml Vial) 30 ml STK-MED ONCE 02/11/18 05:57 02/11/18 06:58 DC Lidocaine HCl (Xylocaine-Mpf 1% 2ml Vial) 2 ml 1X ONCE 02/11/18 10:00 02/11/18 10:13 DC Lidocaine HCl (Xylocaine-Mpf 2% Vial) 2 ml STK-MED ONCE 02/11/18 14:00 02/12/18 08:48 DC Lidocaine/ Epinephrine (LIDOCAINE 1%-EPI 1:100,000 Multi-Dose) 8 ml 1X ONCE 01/29/18 14:00 01/29/18 14:17 DC 01/29/18 14:01 8 ML Linezolid/Dextrose 300 ml @ 300 mls/hr Q12HR 02/09/18 10:00 02/12/18 09:56 300 MLS/HR Lubiprostone (Amitiza) 8 mcg BIDWMEALS 02/09/18 17:00 02/12/18 09:57 8 MCG Metronidazole 100 ml @ 100 mls/hr Q8HRS 02/09/18 14:00 02/12/18 14:23 100 MLS/HR Midazolam HCl (Versed) 2 mg STK-MED ONCE 02/11/18 07:21 02/11/18 07:22 DC Miscellaneous (Lidoderm Patch Removal) 1 ea QHS 01/27/18 21:00 02/05/18 20:57 1 EA Morphine Sulfate (Morphine Sulfate) 1 mg PRN Q10MIN PRN 02/11/18 07:15 02/11/18 12:41 DC Morphine Sulfate (Ms Contin) 15 mg BID 01/27/18 12:30 02/12/18 09:58 15 MG Niacin (Slo-Niacin) 500 mg QHS 01/27/18 21:00 02/11/18 20:59 500 MG Nitroglycerin (Nitrostat) 0.4 mg PRN Q5MIN PRN 01/27/18 12:00 Non-Formulary Medication (Albuterol Sulfate (Proventil Hfa Inhaler)) 2 puff BID PRN 01/27/18 12:00 UNV Non-Formulary Medication (Fluconazole (Diflucan)) 100 mg PRN 01/27/18 12:00 UNV Nystatin (Nystop) 1 erich PRN BID PRN 01/27/18 12:00 Ondansetron HCl (Zofran Odt) 4 mg PRN Q6HRS PRN 01/27/18 12:15 02/07/18 16:53 4 MG Ondansetron HCl (Zofran) 4 mg STK-MED ONCE 02/11/18 07:20 02/11/18 07:21 DC Oxycodone/ Acetaminophen (Percocet 10) 1 tab PRN Q4HRS PRN 01/29/18 07:45 02/10/18 17:24 1 TAB Pantoprazole Sodium (Protonix) 40 mg DAILYAC 02/12/18 16:00 Pharmacy Consult (C.diff Med Screen By Rx) 1 each 1X ONCE 01/27/18 01:00 01/27/18 01:01 Cancel Polyethylene Glycol (miraLAX PACKET) 17 gm DAILY 02/08/18 12:30 02/10/18 08:56 17 GM Prochlorperazine Edisylate (Compazine) 5 mg PACU PRN PRN 02/11/18 07:15 02/11/18 12:42 DC Promethazine HCl (Phenergan Im) 12.5 mg 1X ONCE 01/29/18 12:45 01/29/18 12:46 DC Promethazine HCl (Phenergan Supp) 12.5 mg 1X ONCE 01/29/18 12:15 01/29/18 12:36 DC Propofol 20 ml @ As Directed STK-MED ONCE 02/11/18 07:20 02/11/18 07:21 DC Ringer's Solution 1,000 ml @ 30 mls/hr Q24H 02/11/18 07:15 02/11/18 19:14 Cancel Sevoflurane (Ultane) 30 ml STK-MED ONCE 01/27/18 13:11 01/27/18 13:12 DC Silver Sulfadiazine (Silvadene) 25 erich STK-MED ONCE 02/11/18 05:56 02/11/18 06:57 DC Sodium Chloride 1,000 ml @ 400 mls/hr Q2H30M PRN 02/11/18 09:57 02/11/18 21:56 DC Sodium Chloride (Normal Saline Flush) 10 ml 1X PRN PRN 01/30/18 13:15 01/31/18 13:14 DC Ticagrelor (Brilinta) 90 mg BID 01/28/18 21:00 02/12/18 09:00 90 MG Tramadol HCl (Ultram) 50 mg PRN Q4HRS PRN 01/27/18 12:00 02/08/18 04:36 50 MG Vancomycin HCl (Vanco Per Pharmacy) 1 each PRN DAILY PRN 02/05/18 12:00 02/09/18 09:50 DC 02/08/18 14:35 1 EACH Vancomycin HCl (Vancomycin Random Level) 1 each 1X ONCE 02/08/18 05:00 02/08/18 05:01 DC 02/08/18 05:00 1 EACH Vancomycin HCl 1.5 gm/Sodium Chloride 500 ml @ 250 mls/hr 1X ONCE 02/05/18 14:00 02/05/18 15:59 DC 02/05/18 14:05 250 MLS/HR Vancomycin HCl 1.75 gm/Sodium Chloride 500 ml @ 250 mls/hr 1X ONCE 01/26/18 23:00 01/27/18 00:59 DC 01/26/18 23:53 250 MLS/HR Vancomycin HCl 500 mg/Sodium Chloride 100 ml @ 100 mls/hr QTUTHSA 02/09/18 16:00 02/09/18 16:00 DC Vitamin B Complex/ Vitamin C (Melly-Shabbir) 1 tab DAILY 01/27/18 12:30 02/12/18 10:04 1 TAB Lab Laboratory Tests Test 02/11/18 21:17 02/12/18 05:00 02/12/18 10:15 02/12/18 11:06 Glucose (Fingerstick) 150 mg/dL (70-99) 179 mg/dL (70-99) 235 mg/dL (70-99) White Blood Count 11.0 x10^3/uL (4.0-11.0) Red Blood Count 2.35 x10^6/uL (3.50-5.40) Hemoglobin 7.4 g/dL (12.0-15.5) Hematocrit 22.3 % (36.0-47.0) Mean Corpuscular Volume 95 fL (79-100) Mean Corpuscular Hemoglobin 32 pg (25-35) Mean Corpuscular Hemoglobin Concent 33 g/dL (31-37) Red Cell Distribution Width 17.8 % (11.5-14.5) Platelet Count 341 x10^3/uL (140-400) Neutrophils (%) (Auto) 79 % (31-73) Lymphocytes (%) (Auto) 10 % (24-48) Monocytes (%) (Auto) 11 % (0-9) Eosinophils (%) (Auto) 0 % (0-3) Basophils (%) (Auto) 0 % (0-3) Neutrophils # (Auto) 8.7 x10^3uL (1.8-7.7) Lymphocytes # (Auto) 1.1 x10^3/uL (1.0-4.8) Monocytes # (Auto) 1.2 x10^3/uL (0.0-1.1) Eosinophils # (Auto) 0.0 x10^3/uL (0.0-0.7) Basophils # (Auto) 0.0 x10^3/uL (0.0-0.2) Sodium Level 140 mmol/L (136-145) Potassium Level 3.4 mmol/L (3.5-5.1) Chloride Level 102 mmol/L (98-107) Carbon Dioxide Level 30 mmol/L (21-32) Anion Gap 8 (6-14) Blood Urea Nitrogen 11 mg/dL (7-20) Creatinine 3.1 mg/dL (0.6-1.0) Estimated GFR (Cockcroft-Gault) 15.8 Glucose Level 176 mg/dL (70-99) Calcium Level 8.4 mg/dL (8.5-10.1) Results All relevant outside records, renal labs, imaging studies, telemetry/EKG's were reviewed. HEMANT SCHAEFER MD Feb 12, 2018 16:06
--- NOTE | 2018-02-12 17:08 | PDOC ---
PROGRESS NOTES Assessment Assessment Bilateral vision decrease x 2 weeks, worse x 4 days before admission. Diabetic retinal disease. Renal failure. DM x 30 years. CAD, s/p CABG. Anemia. Left BKA. Wounds. Right fem-pop bypass. RECOMMENDATIONS/PLAN: Continue ASA daily. Continue Lipitor HS. Control hyperglycemia. Treat medical diseases. See Ophthalmology. Past Medical History Cardiovascular: AFib, CAD, CHF, HTN, ME, Hyperlipidemia, Other (heart murmur, peripheral vascular disease, deep venous thrombosis) Pulmonary: Asthma, Bronchitis, COPD, Pneumonia, Other (sleep apnea) CENTRAL NERVOUS SYSTEM: Peripheral neuropathy GI: Irritable bowel disease, Peptic Ulcer disease, Other (C. difficile) Psych: Anxiety, Depression Musculoskeletal: low back pain (and neck pain), Osteoarthritis Rheumatologic: Fibromyalgia Renal/: Chronic renal failure (dialysis) Endocrine: Diabetes Dermatology: Other (various wounds, MRSA, VRE) Past Surgical History CABG, Cataract Removal, Hysterectomy, Other (Arnold-Chiari malformation repair, left below the knee application, right femoropopliteal bypass, arteriovenous shunt, coronary stent, right second and third toes amputations, arthroscopic knee surgery) Family History Cancer, CAD, DM Social History , quit smoking, rare alcohol, disabled, gets around in a wheelchair ALLERGY: Reviewed. MEDICATIONS: Refer to MAR REVIEW OF SYSTEMS: Constitutional: No malnutrition, weight loss, cachexia. Head: No traumatic brain or head injury. Skin: No edema, or rash. Ear: No infection. Eyes: Vision loss. Nose: No bleeding or purulent discharges. Hearing: No hearing decrease. Neck: No injury. Breast: No history of cancer, masses, or discharges. Cardiac: CAD, s/p CABG, HLD Pulmonary: No COPD.. GI: No GI Ulcer, GI bleeding. Urinary/genital: Renal failure. Endocrine: Diabetes Mellitus. Skeletomuscular: No muscular atrophy, deformity. Neurological: see HP. Psychiatric: Denies drug use/abuse. Otherwise, not [id number] review of systems. PHYSICAL EXAMINATION: General appearance in no acute distress. HEENT: Normocephalic and nontraumatic. Eyes, nose, ears, and throat are unremarkable. Neck is supple. No lymphadenopathy. No Crepitus. Cardiovascular: S1, S2, regular rate and rhythm. Pulmonary: Clear to auscultation bilaterally. Abdomen: Bowel sounds are positive. Abdomen is soft, nontender, and nondistended. Extremities: No rash, lesions. No restriction of range of motion NEUROLOGICAL EXAMINATION: Awake. Oriented to time, place and person. PERRL. EOMI. Can see items within 2 feet. CN: no focal findings. Muscle tone: within normal. Muscle strength: 4+ DTR: 2- UE and right LE. Plantar reflex: Neutral response on right side. Left BKA. Gait: Unable to walk. Sensory exam: no abnormal findings. No acute cerebellar signs elicited. F-T-N test fine. Objective Objective Vital Signs Date Time Temp Pulse Resp B/P (MAP) Pulse Ox O2 Delivery O2 Flow Rate FiO2 02/12/18 15:00 97.8 82 18 102/45 (64) 98 Room Air 97.8 02/11/18 20:00 2.0 Intake and Output 02/12/18 07:00 Intake Total 250 ml Output Total 450 ml Balance -200 ml Intake Oral 0 ml IV Total 250 ml Drainage Total 450 ml # Voids 2 # Bowel Movements 1 Vitals Signs Vitals VS - Last 72 Hours, by Label Date Time Temp Pulse Resp B/P (MAP) Pulse Ox O2 Delivery O2 Flow Rate FiO2 02/12/18 15:00 97.8 82 18 102/45 (64) 98 Room Air 97.8 02/12/18 12:26 Room Air 02/12/18 12:25 80 117/54 02/12/18 12:24 80 117/54 02/12/18 11:00 98.1 80 18 117/54 (75) 97 Room Air 98.1 02/12/18 10:04 80 117/54 02/12/18 09:58 Room Air 02/12/18 08:00 Room Air 02/12/18 06:55 Room Air 02/12/18 03:49 16 02/12/18 00:58 Room Air 02/11/18 23:57 Room Air 02/11/18 23:39 98.7 79 18 123/52 (75) 97 Room Air 98.7 02/11/18 23:27 Room Air 02/11/18 20:58 Room Air 02/11/18 20:00 Nasal Cannula 2.0 02/11/18 17:59 64 129/60 02/11/18 15:30 Room Air 02/11/18 11:46 96 Room Air 02/11/18 09:49 97.2 64 17 129/60 100 Nasal Cannula 2 97.2 02/11/18 09:34 97.4 62 16 122/59 100 Nasal Cannula 2 97.4 02/11/18 09:19 97.4 62 16 119/55 Simple Mask 8 97.4 02/11/18 09:04 97.4 61 16 112/50 100 Simple Mask 8 97.4 02/11/18 09:00 Mask 8 02/11/18 08:49 97.4 62 16 99/46 100 Simple Mask 8 97.4 Laboratory Laboratory Laboratory Tests Test 02/11/18 21:17 02/12/18 05:00 02/12/18 10:15 02/12/18 11:06 Glucose (Fingerstick) 150 mg/dL (70-99) 179 mg/dL (70-99) 235 mg/dL (70-99) White Blood Count 11.0 x10^3/uL (4.0-11.0) Red Blood Count 2.35 x10^6/uL (3.50-5.40) Hemoglobin 7.4 g/dL (12.0-15.5) Hematocrit 22.3 % (36.0-47.0) Mean Corpuscular Volume 95 fL (79-100) Mean Corpuscular Hemoglobin 32 pg (25-35) Mean Corpuscular Hemoglobin Concent 33 g/dL (31-37) Red Cell Distribution Width 17.8 % (11.5-14.5) Platelet Count 341 x10^3/uL (140-400) Neutrophils (%) (Auto) 79 % (31-73) Lymphocytes (%) (Auto) 10 % (24-48) Monocytes (%) (Auto) 11 % (0-9) Eosinophils (%) (Auto) 0 % (0-3) Basophils (%) (Auto) 0 % (0-3) Neutrophils # (Auto) 8.7 x10^3uL (1.8-7.7) Lymphocytes # (Auto) 1.1 x10^3/uL (1.0-4.8) Monocytes # (Auto) 1.2 x10^3/uL (0.0-1.1) Eosinophils # (Auto) 0.0 x10^3/uL (0.0-0.7) Basophils # (Auto) 0.0 x10^3/uL (0.0-0.2) Sodium Level 140 mmol/L (136-145) Potassium Level 3.4 mmol/L (3.5-5.1) Chloride Level 102 mmol/L (98-107) Carbon Dioxide Level 30 mmol/L (21-32) Anion Gap 8 (6-14) Blood Urea Nitrogen 11 mg/dL (7-20) Creatinine 3.1 mg/dL (0.6-1.0) Estimated GFR (Cockcroft-Gault) 15.8 Glucose Level 176 mg/dL (70-99) Calcium Level 8.4 mg/dL (8.5-10.1) Microbiology 02/06/18 Blood Culture - Final, Complete NO GROWTH AFTER 5 DAYS 01/27/18 Anaerobic/Aerobic Culture - Final, Complete 01/27/18 Anaerobic Culture Result 1 (ROSALIND) - Final, Complete 01/27/18 Aerobic Culture - Final, Complete 01/27/18 Aerobic Culture Result 1 (ROSALIND) - Final, Complete 01/27/18 Antimicrobic Susceptibility - Final, Complete 01/27/18 Gram Stain - Final, Complete 01/27/18 Gram Stain Result 1 (ROSALIND) - Final, Complete 01/27/18 Gram Stain Result 2 (ROSALIND) - Final, Complete Medication Medications Current Medications Gentamicin Sulfate 1 each 1X ONCE MC ; Start 02/13/18 at 05:00; Stop at 05:01 Pantoprazole Sodium (Protonix) 40 mg DAILYAC PO ; Start 02/12/18 at 16:00 Comment Review of Relevant I have reviewed the following items bert (where applicable) has been applied. KRAIG HUNT MD Feb 12, 2018 17:08
[2018-02-12] MEDS: PANTOPRAZOLE 40 MG TABLET.DR. PO SCH (17:43)
[2018-02-12] MEDS: traMADol 50 MG TABLET PO PRN (17:43)
[2018-02-12 19:10] VITALS: BP 114/50
[2018-02-12] MEDS: NIACIN ER 500 MG TABLET.ER PO SCH (21:08)
[2018-02-12] MEDS: FAMOTIDINE 20 MG TABLET. PO SCH (21:09)
[2018-02-12] MEDS: ATORVASTATIN CALCIUM 40 MG TABLET. PO SCH (21:09)
[2018-02-12] MEDS: FENOFIBRATE,MICRONIZED 134 MG CAPSULE PO SCH (21:09)
[2018-02-12] MEDS: INSULIN GLARGINE 300 UNITS/3 ML INSULN.PEN. SQ SCH (21:25)
[2018-02-12] MEDS: PATCH REMOVAL. MC SCH (21:26)
[2018-02-12 23:10] VITALS: BP 103/49
[2018-02-13] MEDS: HYDROmorphone 2 MG/ML VIAL IV PRN ×6 (00:23→23:33)
[2018-02-13] MEDS: IV NORMAL SALINE 1000ML BAG 1,000 ML IV SCH (00:23)
[2018-02-13 03:10] VITALS: BP 124/59
[2018-02-13] MEDS ORDERED: GENTAMICIN RANDOM LEVEL. MC ONE (05:00)
[2018-02-13] MEDS: ONDANSETRON PF 4 MG/2 ML VIAL. IV PRN (06:09)
[2018-02-13 07:00] VITALS: BP 111/52
[2018-02-13] MEDS: traMADol 50 MG TABLET PO PRN ×2 (07:07→16:30)
[2018-02-13] MEDS: INSULIN LISPRO 300 UNITS/3 ML INSULN.PEN. SQ SCH ×3 (08:00→17:00)
[2018-02-13] MEDS ORDERED: IV NORMAL SALINE 1000ML BAG 1,000 ML IV PRN (08:36)
[2018-02-13] MEDS ORDERED: DIALYSIS PATIENT. MC PRN ×2 (08:45)
[2018-02-13] MEDS: carBAMazepine 200 MG TABLET PO SCH ×2 (09:00→21:54)
--- NOTE | 2018-02-13 10:51 | PDOC ---
Dialysis Progress Note Dialysis Note Dialysis Note Seen on Hemodialysis, tolerating treatment Okay so far Vitals on Hemodialysis: 122/49 84 afeb General Appearance: Awake: Alert Oriented x 3 Neck: No JVD or JVP Chest: CTA Ramiro Heart: S1 S2 Abdomen - Soft NTND Extremities - + Edema ESRD: Dialysis as below F 180 NR 3.0 Hrs 4 K 2.5 Ca 140 Na 35 HC03 Qb 350 + Qd 500+ Heparin 0 Units Uf 1 Kgs or to dry weight as tolerated May give 25-50 gms of 25% Albumin if needed to maintain Hemodynamic stability Treatment plan reviewed and discussed with nursing informatics clinical analyst Vitals Vital Signs Vital Signs Date Time Temp Pulse Resp B/P (MAP) Pulse Ox O2 Delivery O2 Flow Rate FiO2 02/13/18 09:11 Room Air 02/13/18 09:11 94 2.0 02/13/18 07:00 97.7 65 16 111/52 (71) 97.7 Labs Last Labs Laboratory Tests Test 02/11/18 11:53 02/11/18 21:17 02/12/18 05:00 02/12/18 10:15 Glucose (Fingerstick) 119 mg/dL (70-99) 150 mg/dL (70-99) 179 mg/dL (70-99) White Blood Count 11.0 x10^3/uL (4.0-11.0) Red Blood Count 2.35 x10^6/uL (3.50-5.40) Hemoglobin 7.4 g/dL (12.0-15.5) Hematocrit 22.3 % (36.0-47.0) Mean Corpuscular Volume 95 fL (79-100) Mean Corpuscular Hemoglobin 32 pg (25-35) Mean Corpuscular Hemoglobin Concent 33 g/dL (31-37) Red Cell Distribution Width 17.8 % (11.5-14.5) Platelet Count 341 x10^3/uL (140-400) Neutrophils (%) (Auto) 79 % (31-73) Lymphocytes (%) (Auto) 10 % (24-48) Monocytes (%) (Auto) 11 % (0-9) Eosinophils (%) (Auto) 0 % (0-3) Basophils (%) (Auto) 0 % (0-3) Neutrophils # (Auto) 8.7 x10^3uL (1.8-7.7) Lymphocytes # (Auto) 1.1 x10^3/uL (1.0-4.8) Monocytes # (Auto) 1.2 x10^3/uL (0.0-1.1) Eosinophils # (Auto) 0.0 x10^3/uL (0.0-0.7) Basophils # (Auto) 0.0 x10^3/uL (0.0-0.2) Sodium Level 140 mmol/L (136-145) Potassium Level 3.4 mmol/L (3.5-5.1) Chloride Level 102 mmol/L (98-107) Carbon Dioxide Level 30 mmol/L (21-32) Anion Gap 8 (6-14) Blood Urea Nitrogen 11 mg/dL (7-20) Creatinine 3.1 mg/dL (0.6-1.0) Estimated GFR (Cockcroft-Gault) 15.8 Glucose Level 176 mg/dL (70-99) Calcium Level 8.4 mg/dL (8.5-10.1) Test 02/12/18 11:06 02/12/18 16:53 02/12/18 21:07 02/13/18 00:39 Glucose (Fingerstick) 235 mg/dL (70-99) 301 mg/dL (70-99) 201 mg/dL (70-99) 159 mg/dL (70-99) Test 02/13/18 07:39 02/13/18 08:04 02/13/18 09:02 Glucose (Fingerstick) 44 mg/dL (70-99) 54 mg/dL (70-99) 80 mg/dL (70-99) Laboratory Tests Test 02/12/18 11:06 02/12/18 16:53 02/12/18 21:07 02/13/18 00:39 Glucose (Fingerstick) 235 mg/dL (70-99) 301 mg/dL (70-99) 201 mg/dL (70-99) 159 mg/dL (70-99) Test 02/13/18 07:39 02/13/18 08:04 02/13/18 09:02 Glucose (Fingerstick) 44 mg/dL (70-99) 54 mg/dL (70-99) 80 mg/dL (70-99) Assessment Assessment Problems Medical Problems: (1) Chronic renal failure Status: Acute Plan Plan of Care Problems Medical Problems: (1) Chronic renal failure Status: Acute BEAR LÓPEZ MD Feb 13, 2018 10:51
--- NOTE | 2018-02-13 13:00 | PDOC ---
Infectious Disease Note Subjective Subjective Persistent diarrhea with incontinence. Denies N/V at the moment Denies cramps/bloating Denies dizziness/tinnitus No fever last 24 hours Right groin sore No Rash/SOA ROS ROS per HPI Vital Sign Vital Signs Vital Signs Date Time Temp Pulse Resp B/P (MAP) Pulse Ox O2 Delivery O2 Flow Rate FiO2 02/13/18 09:11 Room Air 02/13/18 09:11 94 2.0 02/13/18 07:00 97.7 65 16 111/52 (71) 97.7 Physical Exam PHYSICAL EXAM GENERAL: Propped up in bed, alert, dialyzing HENT: OC/Op- dry LUNGS: Clear. HEART: S1, S2 regular. ABDOMEN: Soft, NT, ND EXTREMITIES: Left BKA. RLE less swollen and red; + wrinkles. wound vac in place Heel without wound NEUROLOGIC: Alert, responds appropriately SKIN: without rash Tunnelled LIJ (01/29) clean Labs Lab Laboratory Tests Test 02/12/18 16:53 02/12/18 21:07 02/13/18 00:39 02/13/18 07:39 Glucose (Fingerstick) 301 mg/dL (70-99) 201 mg/dL (70-99) 159 mg/dL (70-99) 44 mg/dL (70-99) Test 02/13/18 08:04 02/13/18 09:02 Glucose (Fingerstick) 54 mg/dL (70-99) 80 mg/dL (70-99) Micro 01/26/18 Blood Culture - Preliminary, Resulted NO GROWTH AFTER 4 DAYS 01/27 ANAEROBIC RES 1 Preliminary No anaerobes recovered in 24 hours. AEROBIC RES 1 Final Klebsiella pneumoniae 02/05 pending Objective Assessment Fever - better - blood cult 02/06 neg Leukocytosis ? reactive from GI bleed,- despite Vanc/Cefepime better with Zyvox/ gent/Flagyl Mild encephalopathy - ? med related Right leg surgery site infection s/p excisional debridement; muscle flap & wound VAC placement on 01/27. Klebsiella (R amp) - s/p repeat I and D on 02/01 and 02/11 of necrotic skin and subcutaneous tissue. - 01/26. gram stain: GPC and GNR -- mixed chinedu. PAD s/p leg bypass on 01/06 ESRD Multiple antibiotic allergies Amiodarone therapy h/o VRE, MRSA, c. diff Nausea and vomiting s/p EGD 02/05. non-erosive gastritis. some better but ? Abnormal Abd U/S - lipase normal Anemia s/p PRBC Visual changes/loss Diarrhea Plan Plan of Care Zyvox with h/o VRE Gent. random trough 3.6 Flagyl 02/09 was on Vanc, Cefepime prior vision loss, need to be transferred to [facility] for ophthalmology eval still awaiting transfer, [facility] refused per staff, was to be tx to [facility] last night but was not able to transfer Probiotics Local wound care stool for c. diff pending Supportive care Patient seen, examined, I agree with above A/P by MARIA ESTHER D/W RN again to check with critical care cns if able to transfer today to [facility] KYLEIGH QUEEN APRN Feb 13, 2018 13:00 GRACIELA LÓPEZ MD Feb 14, 2018 14:03
[2018-02-13 13:37] VITALS: BP 137/59
--- NOTE | 2018-02-13 14:09 | PDOC ---
PROGRESS NOTES Chief Complaint Chief Complaint RIght groin sx wound infection s/p i and d 02/01 and 02/05 with wound vac on, wound cx + Kpna recent right leg PAD s/p R fem to pop bypass ESRD on dialysis h/o L BKA CAD w/ hx CABG, EF 50% Diabetic retinopathy worsening vision bl recently with h/o Macular degeneration, retinal bleeding and Cataracts H/O CAD with multiple stents Leukocytosis post steroids - trending down Right lower extremity swelling with superficial skin breakdown from injury on with abrasion and subsequent redness and swelling, treated with outpatient Keflex End-stage renal disease, on dialysis via AV fistula here ,at home per pt is on PD. ANTIBIOTIC ALLERGY TO MEROPENEM, PIPERACILLIN AND TAZOBACTAM CAUSING PEELING AND BLEEDING OF THE SKIN. ALSO, SULFA. TOLERATES KEFLEX AND HAS BEEN ON CEFAZOLIN, THOUGH HAS CAUSED ITCHING. H/o recent urinary tract infection, though urine cultures are negative, on Cipro POA for 5 days. A- fib, amiodarone therapy Gastroparesis, E. Mycin Left retinal optic disc drusen, bl blurry vision EGD 02/05 non erosive gatritis decubitus ulcer gastroparesis Distended hydropic gallbladder containing sludge. Hepatomegaly. 1.4 cm lobular lesion along the left renal cortex stable plan: fu with id, vascular, renal, gi on wound vac, wound care changed abx to zyvox, genta, flagyl as per ID. neg bcx so far. wound cx + kPNA cont home meds dvt ppx fu with ophthal as outpt discussed with pt about the US finding, likely no sx intervention needed at this time point given pt has no abd pain and other issues going on, fu with GI, HIDA done. talked to wound care, FU WITH vascular , i and d 02/05 again dc select when stable decrease lantus to 15u qhs, ssi. talked to ID yesterday, who concerning possible retinal bleeding or detachment and recommend transfer. we find out [facility] have inpt ophthal service now. however, [facility] refused transfer. i talked to human services supervisor today, found dr. Oshea discussed with opthal 2 weeks ago and they would not do anything given pt has acute issues in Hosp with groin infection and i and d. we will try to transfer to or [facility]. discussed with sw and pt. History of Present Illness History of Present Illness Pt seen and examined Dw RN Sitting up right 02/09/18:higher wbc 19, more nausea. has n/o gastroparesis told me has decubitus ulcer, last pic 02/07 looks ok 02/10: wbc better to 14, but there is some new necrotic tissues at the wound edge seen when changing the VAC US showed gallbladder sludge 02/11 i and d again for necrotic tissues at right thigh wound 02/12: WBC down to 11. HIDA scan no CBD obstruction, EF 40%. [facility] refuse transfer given no bed 02/13: hypoglycemia. Vitals Vitals Vital Signs Date Time Temp Pulse Resp B/P (MAP) Pulse Ox O2 Delivery O2 Flow Rate FiO2 02/13/18 13:37 98.1 75 16 137/59 (85) 100 Nasal Cannula 2.0 98.1 Physical Exam Physical Exam GENERAL: Propped up in bed, alert, dialyzing HENT: OC/Op- dry LUNGS: Clear. HEART: S1, S2 regular. ABDOMEN: Soft, NT, ND EXTREMITIES: Left BKA. RLE less swollen and red; + wrinkles. wound vac in place Heel without wound NEUROLOGIC: Alert, responds appropriately SKIN: without rash Tunnelled LIJ (01/29) clean General: Alert, Oriented X3, Cooperative, No acute distress Heart: Regular rate, Normal S1, Normal S2, No murmurs, Gallops Lungs: Wheezing Abdomen: Normal bowel sounds, Soft, No tenderness, No hepatosplenomegaly, No masses Extremities: Other (wound inspected. Excellent muscle viability. Some washburn exudate peripheral edges superior and medial. Should respond to further wound suction dressing. measurements recorded.) Skin: No breakdown, Other (dehiscence of the proximal right common femoral incision and vein harvest site with lower extremity edema and mild cellulitis) Labs LABS Laboratory Tests Test 02/12/18 16:53 02/12/18 21:07 02/13/18 00:39 02/13/18 07:39 Glucose (Fingerstick) 301 mg/dL (70-99) 201 mg/dL (70-99) 159 mg/dL (70-99) 44 mg/dL (70-99) Test 02/13/18 08:04 02/13/18 09:02 02/13/18 13:28 Glucose (Fingerstick) 54 mg/dL (70-99) 80 mg/dL (70-99) 98 mg/dL (70-99) Assessment and Plan Assessmemt and Plan Problems Medical Problems: (1) Chronic renal failure Status: Acute Comment Review of Relevant I have reviewed the following items bert (where applicable) has been applied. Labs Laboratory Tests Test 02/11/18 21:17 02/12/18 05:00 02/12/18 10:15 02/12/18 11:06 Glucose (Fingerstick) 150 mg/dL (70-99) 179 mg/dL (70-99) 235 mg/dL (70-99) White Blood Count 11.0 x10^3/uL (4.0-11.0) Red Blood Count 2.35 x10^6/uL (3.50-5.40) Hemoglobin 7.4 g/dL (12.0-15.5) Hematocrit 22.3 % (36.0-47.0) Mean Corpuscular Volume 95 fL (79-100) Mean Corpuscular Hemoglobin 32 pg (25-35) Mean Corpuscular Hemoglobin Concent 33 g/dL (31-37) Red Cell Distribution Width 17.8 % (11.5-14.5) Platelet Count 341 x10^3/uL (140-400) Neutrophils (%) (Auto) 79 % (31-73) Lymphocytes (%) (Auto) 10 % (24-48) Monocytes (%) (Auto) 11 % (0-9) Eosinophils (%) (Auto) 0 % (0-3) Basophils (%) (Auto) 0 % (0-3) Neutrophils # (Auto) 8.7 x10^3uL (1.8-7.7) Lymphocytes # (Auto) 1.1 x10^3/uL (1.0-4.8) Monocytes # (Auto) 1.2 x10^3/uL (0.0-1.1) Eosinophils # (Auto) 0.0 x10^3/uL (0.0-0.7) Basophils # (Auto) 0.0 x10^3/uL (0.0-0.2) Sodium Level 140 mmol/L (136-145) Potassium Level 3.4 mmol/L (3.5-5.1) Chloride Level 102 mmol/L (98-107) Carbon Dioxide Level 30 mmol/L (21-32) Anion Gap 8 (6-14) Blood Urea Nitrogen 11 mg/dL (7-20) Creatinine 3.1 mg/dL (0.6-1.0) Estimated GFR (Cockcroft-Gault) 15.8 Glucose Level 176 mg/dL (70-99) Calcium Level 8.4 mg/dL (8.5-10.1) Test 02/12/18 16:53 02/12/18 21:07 02/13/18 00:39 02/13/18 07:39 Glucose (Fingerstick) 301 mg/dL (70-99) 201 mg/dL (70-99) 159 mg/dL (70-99) 44 mg/dL (70-99) Test 02/13/18 08:04 02/13/18 09:02 02/13/18 13:28 Glucose (Fingerstick) 54 mg/dL (70-99) 80 mg/dL (70-99) 98 mg/dL (70-99) Laboratory Tests Test 02/12/18 16:53 02/12/18 21:07 02/13/18 00:39 02/13/18 07:39 Glucose (Fingerstick) 301 mg/dL (70-99) 201 mg/dL (70-99) 159 mg/dL (70-99) 44 mg/dL (70-99) Test 02/13/18 08:04 02/13/18 09:02 02/13/18 13:28 Glucose (Fingerstick) 54 mg/dL (70-99) 80 mg/dL (70-99) 98 mg/dL (70-99) Microbiology 02/06/18 Blood Culture - Final, Complete NO GROWTH AFTER 5 DAYS 01/27/18 Anaerobic/Aerobic Culture - Final, Complete 01/27/18 Anaerobic Culture Result 1 (ROSALIND) - Final, Complete 01/27/18 Aerobic Culture - Final, Complete 01/27/18 Aerobic Culture Result 1 (ROSALIND) - Final, Complete 01/27/18 Antimicrobic Susceptibility - Final, Complete 01/27/18 Gram Stain - Final, Complete 01/27/18 Gram Stain Result 1 (ROSALIND) - Final, Complete 01/27/18 Gram Stain Result 2 (ROSALIND) - Final, Complete Medications Current Medications Hydromorphone HCl (Dilaudid) 2 mg 1X ONCE IV Last administered on 01/26/18at 22 :39; Start 01/26/18 at 22:00; Stop 01/26/18 at 22:01; Status DC Vancomycin HCl (Vanco Per Pharmacy) 1 each PRN DAILY PRN MC SEE COMMENTS Last administered on 01/31/18at 17:20; Start 01/26/18 at 22:45; Stop 02/01/18 at 11:41 ; Status DC Vancomycin HCl 1.75 gm/Sodium Chloride 500 ml @ 250 mls/hr 1X ONCE IV Last administered on 01/26/18at 23:53; Start 01/26/18 at 23:00; Stop 01/27/18 at 00:59 ; Status DC Ondansetron HCl (Zofran) 4 mg PRN Q8HRS PRN IV NAUSEA/VOMITING 1ST CHOICE; Start 01/26/18 at 23:15; Stop 01/27/18 at 23:14; Status DC Sodium Chloride 1,000 ml @ 75 mls/hr [id number] IV Last administered on at 00:39; Start 01/26/18 at 23:30; Stop 01/27/18 at 23:29; Status DC Pharmacy Consult (C.diff Med Screen By Rx) 1 each 1X ONCE MC ; Start 01/27/18 at 01:00; Stop 01/27/18 at 01:01; Status Cancel Influenza Virus Vaccine (Afluria Trivalent [id number] Syringe) 0.5 ml ONCE ONCE VAX IM Last administered on 01/27/18at 09:00; Start 01/27/18 at 09:00; Stop 01/27/18 at 09:01; Status DC Vancomycin HCl (Vancomycin Random Level) 1 each 1X ONCE MC Last administered on 01/28/18at 05:00; Start 01/28/18 at 05:00; Stop 01/28/18 at 05:01; Status DC Hydromorphone HCl (Dilaudid) 1 mg PRN Q3HRS PRN IV SEVERE PAIN Last administered on 02/13/18at 09:11; Start 01/27/18 at 03:30 Ondansetron HCl (Zofran) 4 mg PRN Q6HRS PRN IV NAUSEA/VOMITING; Start 01/27/18 at 10:45; Stop 01/27/18 at 18:00; Status DC Fentanyl Citrate (Fentanyl 2ml Vial) 25 mcg PRN Q5MIN PRN IV MILD PAIN; Start 01/27/18 at 10:45; Stop 01/27/18 at 18:00; Status DC Fentanyl Citrate (Fentanyl 2ml Vial) 50 mcg PRN Q5MIN PRN IV MODERATE TO SEVERE PAIN; Start 01/27/18 at 10:45; Stop 01/27/18 at 18:00; Status DC Morphine Sulfate (Morphine Sulfate) 1 mg PRN Q10MIN PRN IV SEVERE PAIN Last administered on 01/27/18at 16:28; Start 01/27/18 at 10:45; Stop 01/27/18 at 18:00 ; Status DC Ringer's Solution 1,000 ml @ 30 mls/hr Q24H IV Last administered on 01/27/18at 10:35; Start 01/27/18 at 10:35; Stop 01/27/18 at 19:36; Status DC Lidocaine HCl (Xylocaine-Mpf 1% 2ml Vial) 2 ml 1X PRN PRN ID IV START; Start 01/27/18 at 10:45; Stop 01/27/18 at 18:00; Status DC Hydromorphone HCl (Dilaudid) 0.5 mg PRN Q10MIN PRN IV SEV PAIN, Second choice Last administered on 01/27/18at 15:59; Start 01/27/18 at 10:45; Stop 01/27/18 at 18:00; Status DC Prochlorperazine Edisylate (Compazine) 5 mg PACU PRN PRN IV NAUSEA, MRX1; Start 01/27/18 at 10:45; Stop 01/27/18 at 18:00; Status DC Amiodarone HCl (Cordarone) 200 mg DAILY PO Last administered on 02/12/18at 12: 25; Start 01/27/18 at 12:30 Aspirin (Anthony Aspirin) 325 mg DAILY PO Last administered on 01/28/18at 09:13; Start 01/27/18 at 12:30; Stop 01/28/18 at 14:26; Status DC Carbamazepine (TEGretol) 200 mg BID PO Last administered on 02/12/18at 21:09; Start 01/27/18 at 12:30 Carvedilol (Coreg) 12.5 mg BIDWMEALS PO Last administered on 02/12/18 17:43; Start 01/27/18 at 12:30 Vitamin B Complex/ Vitamin C (Melly-Shabbir) 1 tab DAILY PO Last administered on 10:04; Start 01/27/18 at 12:30 Furosemide (Lasix) 80 mg [id number] PO Last administered on 02/12/18 14:23; Start 01/27/18 at 12:30 Insulin Glargine (Lantus) 22 units QHS SQ Last administered on 02/12/18 21:25 ; Start 01/27/18 at 21:00; Stop 02/13/18 at 09:35; Status DC Morphine Sulfate (Ms Contin) 15 mg BID PO Last administered on 02/12/18 21:08 ; Start 01/27/18 at 12:30 Nitroglycerin (Nitrostat) 0.4 mg PRN Q5MIN PRN SL CHEST PAIN; Start 01/27/18 at 12:00 Nystatin (Nystop) 1 susanna PRN BID PRN TP SKIN BREAKDOWN; Start 01/27/18 at 12:00 Tramadol HCl (Ultram) 50 mg PRN Q4HRS PRN PO HEADACHE Last administered on 07:07; Start 01/27/18 at 12:00 Non-Formulary Medication (Albuterol Sulfate (Proventil Hfa Inhaler)) 2 puff BID PRN IH FOR ASTHMA; Start 01/27/18 at 12:00; Status UNV Atorvastatin Calcium (Lipitor) 80 mg QHS PO Last administered on 02/12/18at 21: 09; Start 01/27/18 at 21:00 Calcitriol (Rocaltrol) 0.25 mcg DAILY PO Last administered on 02/12/18 09:57 ; Start 01/27/18 at 12:30 Diltiazem HCl (Cardizem 24hr Cd) 120 mg DAILY PO Last administered on 12:24; Start 01/27/18 at 12:30 Erythromycin (E-Mycin) 250 mg BID PO Last administered on 02/12/18at 21:09; Start 01/27/18 at 21:00 Fenofibrate (Lofibra) 134 mg QHS PO Last administered on 02/12/18at 21:09; Start 01/27/18 at 21:00 Non-Formulary Medication (Fluconazole (Diflucan)) 100 mg PRN PO ; Start at 12:00; Status UNV Lidocaine (Lidoderm) 1 patch PRN DAILY PRN TD PAIN; Start 01/27/18 at 09:00 Niacin (Slo-Niacin) 500 mg QHS PO Last administered on 02/12/18at 21:08; Start 01/27/18 at 21:00 Ondansetron HCl (Zofran Odt) 4 mg PRN Q6HRS PRN PO NAUSEA/VOMITING Last administered on 02/07/18at 16:53; Start 01/27/18 at 12:15 Miscellaneous (Lidoderm Patch Removal) 1 ea QHS MC Last administered on at 21:26; Start 01/27/18 at 21:00 Albuterol Sulfate (Ventolin Neb Soln) 2.5 mg PRN BID PRN NEB SHORTNESS OF BREATH Last administered on 01/27/18at 21:59; Start 01/27/18 at 12:30 Lidocaine HCl (Lidocaine 1% 50ml Vial) 50 ml 1X ONCE INJ Last administered on 01/27/18at 14:06; Start 01/27/18 at 12:45; Stop 01/27/18 at 12:46; Status DC Hydromorphone HCl (Dilaudid) 2 mg STK-MED ONCE .ROUTE ; Start 01/27/18 at 12:36 ; Stop 01/27/18 at 12:38; Status DC Propofol 20 ml @ As Directed STK-MED ONCE IV ; Start 01/27/18 at 12:38; Stop at 12:39; Status DC Bacitracin 10008 unit/Sodium Chloride 3,000 ml @ 0 mls/hr 1X ONCE IR ; Start 01/27/18 at 13:15; Stop 01/27/18 at 13:16; Status Cancel Dexamethasone Sodium Phosphate (Decadron) 20 mg STK-MED ONCE .ROUTE ; Start 01/27/18 at 13:11; Stop 01/27/18 at 13:12; Status DC Ondansetron HCl (Zofran) 4 mg STK-MED ONCE .ROUTE ; Start 01/27/18 at 13:11; Stop 01/27/18 at 13:12; Status DC Sevoflurane (Ultane) 30 ml STK-MED ONCE IH ; Start 01/27/18 at 13:11; Stop 01/27 at 13:12; Status DC Bacitracin (Bacitracin) 50,000 unit STK-MED ONCE IRR Last administered on at 13:58; Start 01/27/18 at 12:14; Stop 01/27/18 at 13:16; Status DC Clopidogrel Bisulfate (Plavix) 75 mg DAILYWBKFT PO Last administered on at 09:13; Start 01/28/18 at 08:00; Stop 01/28/18 at 14:28; Status DC Hydromorphone HCl (Dilaudid) 2 mg STK-MED ONCE .ROUTE ; Start 01/27/18 at 15:38 ; Stop 01/27/18 at 15:40; Status DC Gentamicin Sulfate 235 mg/ Dextrose 105.875 ml @ 105.875 mls/hr 1X ONCE IV Last administered on 01/27/18at 19:56; Start 01/27/18 at 16:00; Stop 01/27/18 at 16:59; Status DC Lactobacillus Rhamnosus (Culturelle) 1 cap BID PO Last administered on at 21:09; Start 01/27/18 at 21:00 Cefepime HCl 1 gm/ Dextrose 50 ml @ 100 mls/hr DAILY IV ; Start 01/29/18 at 09: 00; Status UNV Metronidazole 100 ml @ 100 mls/hr Q12HR IV Last administered on 02/02/18at 21: 00; Start 01/28/18 at 10:00; Stop 02/03/18 at 10:49; Status DC Cefepime HCl (Maxipime) 1 gm Q24H IVP Last administered on 02/03/18at 10:54; Start 01/28/18 at 10:00; Stop 02/04/18 at 12:02; Status DC Lidocaine HCl (Xylocaine-Mpf 2% Vial) 2 ml STK-MED ONCE .ROUTE ; Start 01/28/18 at 11:41; Stop 01/28/18 at 11:42; Status DC Sodium Chloride 1,000 ml @ 1,000 mls/hr Q1H PRN IV hypotension; Start 01/28/18 at 12:09; Stop 01/28/18 at 18:08; Status DC Info (PHARMACY MONITORING -- do not chart) 1 each PRN DAILY PRN MC SEE COMMENTS ; Start 01/28/18 at 12:15; Status UNV Info (PHARMACY MONITORING -- do not chart) 1 each PRN DAILY PRN MC SEE COMMENTS ; Start 01/28/18 at 12:15; Stop 01/31/18 at 09:10; Status DC Lidocaine HCl (Xylocaine-Mpf 2% Vial) 2 ml 1X ONCE INJ ; Start 01/28/18 at 12: 15; Stop 01/28/18 at 12:21; Status DC Ticagrelor (Brilinta) 90 mg BID PO Last administered on 02/12/18at 21:09; Start 01/28/18 at 21:00 Diphenhydramine HCl (Benadryl) 25 mg PRN Q6HRS PRN PO ITCHING; Start 01/28/18 at 14:15 Aspirin (Ecotrin) 81 mg DAILYWBKFT PO Last administered on 02/12/18at 10:07; Start 01/29/18 at 08:00 Insulin Human Lispro (HumaLOG) 0-5 UNITS TIDWMEALS SQ Last administered on at 17:48; Start 01/28/18 at 17:00 Dextrose (Dextrose 50%-Water Syringe) 12.5 gm PRN Q15MIN PRN IV SEE COMMENTS Last administered on 02/05/18at 08:50; Start 01/28/18 at 14:45 Hydralazine HCl (Apresoline) 10 mg PRN TID PRN PO hypertension; Start 01/28/18 at 14:45 Oxycodone/ Acetaminophen (Percocet 10/325) 1 tab PRN Q4HRS PRN PO pain SEVERE Last administered on 02/10/18at 17:24; Start 01/29/18 at 07:45 Promethazine HCl (Phenergan Supp) 12.5 mg 1X ONCE NE ; Start 01/29/18 at 12:15 ; Stop 01/29/18 at 12:36; Status DC Promethazine HCl (Phenergan Im) 12.5 mg 1X ONCE IM ; Start 01/29/18 at 12:45; Stop 01/29/18 at 12:46; Status DC Lidocaine/ Epinephrine (LIDOCAINE 1%-EPI 1:100,000 Multi-Dose) 20 ml STK-MED ONCE .ROUTE ; Start 01/29/18 at 12:45; Stop 01/29/18 at 12:47; Status DC Heparin Sodium (Porcine) (Hep Lock Adult) 500 unit STK-MED ONCE IV ; Start 01/29 at 12:45; Stop 01/29/18 at 12:47; Status DC Morphine Sulfate (Morphine Sulfate) 10 mg STK-MED ONCE .ROUTE ; Start 01/29/18 at 13:23; Stop 01/29/18 at 13:25; Status DC Midazolam HCl (Versed) 2 mg STK-MED ONCE .ROUTE ; Start 01/29/18 at 13:23; Stop 01/29/18 at 13:25; Status DC Morphine Sulfate (Morphine Sulfate) 1 mg PRN Q10MIN PRN IV SEVERE PAIN Last administered on 02/01/18at 15:46; Start 02/01/18 at 07:00; Stop 02/02/18 at 06:59 ; Status DC Ringer's Solution 1,000 ml @ 30 mls/hr Q24H IV ; Start 02/01/18 at 07:00; Stop 02/01/18 at 18:59; Status DC Lidocaine HCl (Xylocaine-Mpf 1% 2ml Vial) 2 ml PRN 1X PRN ID PRIOR TO IV START ; Start 02/01/18 at 07:00; Stop 02/02/18 at 06:59; Status DC Hydromorphone HCl (Dilaudid) 0.5 mg PRN Q10MIN PRN IV SEV PAIN, Second choice Last administered on 02/01/18at 16:08; Start 02/01/18 at 07:00; Stop 02/02/18 at 06:59; Status DC Prochlorperazine Edisylate (Compazine) 5 mg PACU PRN PRN IV NAUSEA, MRX1; Start 02/01/18 at 07:00; Stop 02/02/18 at 06:59; Status DC Lidocaine/ Epinephrine (LIDOCAINE 1%-EPI 1:100,000 Multi-Dose) 8 ml 1X ONCE IJ Last administered on 01/29/18at 14:01; Start 01/29/18 at 14:00; Stop 01/29/18 at 14:17; Status DC Heparin Sodium (Porcine) (Hep Lock Adult) 500 unit 1X ONCE IV Last administered on 01/29/18at 14:04; Start 01/29/18 at 14:00; Stop 01/29/18 at 14:17 ; Status DC Morphine Sulfate (Morphine Sulfate) 5 mg 1X ONCE IV Last administered on at 14:01; Start 01/29/18 at 14:00; Stop 01/29/18 at 14:17; Status DC Ondansetron HCl (Zofran) 4 mg PRN Q6HRS PRN IV NAUSEA/VOMITING 1ST CHOICE Last administered on 02/13/18at 06:09; Start 01/29/18 at 14:45 Vancomycin HCl 500 mg/Sodium Chloride 100 ml @ 100 mls/hr 1X ONCE IV Last administered on 01/29/18at 21:04; Start 01/29/18 at 18:00; Stop 01/29/18 at 18:59 ; Status DC Sodium Chloride 1,000 ml @ 1,000 mls/hr Q1H PRN IV hypotension; Start 01/30/18 at 13:09; Stop 01/30/18 at 19:08; Status DC Sodium Chloride (Normal Saline Flush) 10 ml 1X PRN PRN IV AP catheter pack; Start 01/30/18 at 13:15; Stop 01/31/18 at 13:14; Status DC Sodium Chloride (Normal Saline Flush) 10 ml 1X PRN PRN IV DIRECTOR ECONOMIC catheter pack; Start 01/30/18 at 13:15; Stop 01/31/18 at 13:14; Status DC Sodium Chloride 1,000 ml @ 400 mls/hr Q2H30M PRN IV PATENCY; Start 01/30/18 at 13:09; Stop 01/31/18 at 01:08; Status DC Info (PHARMACY MONITORING -- do not chart) 1 each PRN DAILY PRN MC SEE COMMENTS ; Start 01/30/18 at 13:15; Stop 01/30/18 at 13:17; Status DC Info (PHARMACY MONITORING -- do not chart) 1 each PRN DAILY PRN MC SEE COMMENTS ; Start 01/30/18 at 13:15; Stop 02/04/18 at 07:27; Status DC Lidocaine HCl (Lidocaine 1% 50ml Vial) 50 ml 1X ONCE INJ ; Start 01/30/18 at 15 :45; Stop 01/30/18 at 15:46; Status DC Vancomycin HCl 500 mg/Sodium Chloride 100 ml @ 100 mls/hr ONCE ONCE IV Last administered on 01/30/18at 20:49; Start 01/30/18 at 18:00; Stop 01/30/18 at 18:59 ; Status DC Cefazolin Sodium 1 gm/Sodium Chloride 500 ml @ 500 mls/hr 1X ONCE IRR ; Start 02/01/18 at 06:00; Stop 02/01/18 at 06:59; Status DC Lidocaine HCl (Xylocaine-Mpf 2% Vial) 2 ml STK-MED ONCE .ROUTE ; Start 01/28/18 at 12:00; Stop 02/01/18 at 08:30; Status DC Darbepoetin Mauricio (Aranesp) 60 mcg [id number] SQ Last administered on 02/08/18at 20:41; Start 02/01/18 at 21:00 Cellulose (Surgicel Fibrillar 1x2) 1 each STK-MED ONCE .ROUTE ; Start 02/01/18 at 12:05; Stop 02/01/18 at 13:06; Status DC Lidocaine HCl (Xylocaine 1% Pf 30ml Vial) 30 ml 1X ONCE INJ ; Start 02/01/18 at 13:15; Stop 02/01/18 at 13:18; Status DC Sodium Chloride 1,000 ml @ 75 mls/hr [id number] IV Last administered on at 00:15; Start 02/01/18 at 13:45; Stop 02/02/18 at 16:43; Status DC Morphine Sulfate (Morphine Sulfate) 10 mg STK-MED ONCE .ROUTE ; Start 02/01/18 at 14:24; Stop 02/01/18 at 14:25; Status DC Midazolam HCl (Versed) 2 mg STK-MED ONCE .ROUTE ; Start 02/01/18 at 14:24; Stop 02/01/18 at 14:25; Status DC Midazolam HCl (Versed) 2 mg STK-MED ONCE .ROUTE ; Start 02/01/18 at 14:25; Stop 02/01/18 at 14:26; Status DC Propofol 20 ml @ As Directed STK-MED ONCE IV ; Start 02/01/18 at 14:25; Stop at 14:26; Status DC Dexamethasone Sodium Phosphate (Decadron) 20 mg STK-MED ONCE .ROUTE ; Start 02/01/18 at 14:25; Stop 02/01/18 at 14:26; Status DC Ondansetron HCl (Zofran) 4 mg STK-MED ONCE .ROUTE ; Start 02/01/18 at 14:25; Stop 02/01/18 at 14:26; Status DC Bacitracin (Bacitracin) 50,000 unit STK-MED ONCE IRR Last administered on at 14:55; Start 02/01/18 at 13:32; Stop 02/01/18 at 14:32; Status DC Vancomycin HCl 500 mg/Sodium Chloride 100 ml @ 100 mls/hr QTUTHSA IV Last administered on 02/02/18at 16:15; Start 02/02/18 at 16:00; Stop 02/04/18 at 12: 02; Status DC Sodium Chloride 1,000 ml @ 1,000 mls/hr Q1H PRN IV hypotension; Start 02/02/18 at 09:39; Stop 02/02/18 at 15:38; Status DC Albumin Human 200 ml @ 200 mls/hr 1X PRN PRN IV Hypotension; Start 02/02/18 at 09:45; Stop 02/02/18 at 15:44; Status DC Sodium Chloride 1,000 ml @ 400 mls/hr Q2H30M PRN IV PATENCY; Start 02/02/18 at 09:39; Stop 02/02/18 at 21:38; Status DC Info (PHARMACY MONITORING -- do not chart) 1 each PRN DAILY PRN MC SEE COMMENTS ; Start 02/02/18 at 09:45; Stop 02/04/18 at 07:28; Status DC Info (PHARMACY MONITORING -- do not chart) 1 each PRN DAILY PRN MC SEE COMMENTS ; Start 02/02/18 at 09:45; Status UNV Prochlorperazine Edisylate (Compazine) 10 mg PRN Q6HRS PRN IV NAUSEA/VOMITING 2ND CHOICE Last administered on 02/12/18at 13:19; Start 02/02/18 at 11:30 Vancomycin HCl (Vanco Per Pharmacy) 1 each PRN DAILY PRN MC SEE COMMENTS Last administered on 02/02/18at 13:57; Start 02/02/18 at 14:00; Stop 02/04/18 at 12: 02; Status DC Famotidine (Pepcid Vial) 20 mg DAILY IVP Last administered on 02/08/18at 09:00 ; Start 02/03/18 at 10:00; Stop 02/08/18 at 11:45; Status DC Alteplase, Recombinant (Cathflo) 2 mg 1X ONCE INT CAT Last administered on 03/14at 02:56; Start 02/04/18 at 03:00; Stop 02/04/18 at 03:01; Status DC Sodium Chloride 1,000 ml @ 1,000 mls/hr Q1H PRN IV hypotension; Start at 07:15; Stop 02/04/18 at 13:14; Status DC Albumin Human 200 ml @ 200 mls/hr 1X PRN PRN IV Hypotension Last administered on 02/04/18at 11:26; Start 02/04/18 at 07:15; Stop 02/04/18 at 13:14; Status DC Acetaminophen (Tylenol) 500 mg 1X PRN PRN PO MILD PAIN / TEMP; Start 02/04/18 at 07:15; Stop 02/05/18 at 07:14; Status DC Diphenhydramine HCl (Benadryl) 25 mg 1X PRN PRN IV ITCHING; Start 02/04/18 at 07:15; Stop 02/05/18 at 07:14; Status DC Diphenhydramine HCl (Benadryl) 25 mg 1X PRN PRN IV ITCHING; Start 02/04/18 at 07:15; Stop 02/05/18 at 07:14; Status DC Sodium Chloride 1,000 ml @ 400 mls/hr Q2H30M PRN IV PATENCY; Start 02/04/18 at 07:15; Stop 02/04/18 at 19:14; Status DC Info (PHARMACY MONITORING -- do not chart) 1 each PRN DAILY PRN MC SEE COMMENTS ; Start 02/04/18 at 07:15; Status Cancel Lidocaine HCl (Xylocaine-Mpf 2% Vial) 2 ml STK-MED ONCE .ROUTE ; Start at 09:43; Stop 02/04/18 at 09:44; Status DC Docusate Sodium (Colace) 100 mg PRN DAILY PRN PO CONSTIPATION Last administered on 02/07/18at 22:13; Start 02/04/18 at 10:30 Ceftriaxone Sodium 2 gm/ Dextrose 100 ml @ 200 mls/hr Q24H IV Last administered on 02/04/18at 14:24; Start 02/04/18 at 13:00; Stop 02/05/18 at 11 :49; Status DC Morphine Sulfate (Morphine Sulfate) 1 mg PRN Q10MIN PRN IV SEVERE PAIN; Start 02/05/18 at 07:00; Stop 02/06/18 at 06:59; Status DC Ringer's Solution 1,000 ml @ 30 mls/hr Q24H IV ; Start 02/05/18 at 07:00; Stop 02/05/18 at 18:59; Status DC Lidocaine HCl (Xylocaine-Mpf 1% 2ml Vial) 2 ml PRN 1X PRN ID IV START; Start 02/05/18 at 07:00; Stop 02/06/18 at 06:59; Status DC Hydromorphone HCl (Dilaudid) 0.5 mg PRN Q10MIN PRN IV SEV PAIN, Second choice; Start 02/05/18 at 07:00; Stop 02/06/18 at 06:59; Status DC Prochlorperazine Edisylate (Compazine) 5 mg PACU PRN PRN IV NAUSEA, MRX1; Start 02/05/18 at 07:00; Stop 02/06/18 at 06:59; Status DC Lidocaine HCl (Xylocaine-Mpf 2% Vial) 2 ml STK-MED ONCE .ROUTE ; Start at 10:00; Stop 02/05/18 at 08:19; Status DC Sodium Chloride 1,000 ml @ 75 mls/hr [id number] IV Last administered on at 07:00; Start 02/05/18 at 10:30; Stop 02/08/18 at 15:20; Status DC Cefepime HCl 1 gm/ Dextrose 50 ml @ 100 mls/hr DAILY IV ; Start 02/06/18 at 09 :00; Status UNV Vancomycin HCl (Vanco Per Pharmacy) 1 each PRN DAILY PRN MC SEE COMMENTS Last administered on 02/08/18at 14:35; Start 02/05/18 at 12:00; Stop 02/09/18 at 09 :50; Status DC Cefepime HCl (Maxipime) 1 gm Q24H IVP Last administered on 02/08/18at 14:49; Start 02/05/18 at 12:00; Stop 02/09/18 at 09:35; Status DC Propofol 20 ml @ As Directed STK-MED ONCE IV ; Start 02/05/18 at 12:08; Stop 02/05/18 at 12:09; Status DC Lidocaine HCl (Xylocaine-Mpf 2% Vial) 2 ml STK-MED ONCE .ROUTE ; Start at 12:08; Stop 02/05/18 at 12:09; Status DC Vancomycin HCl 1.5 gm/Sodium Chloride 500 ml @ 250 mls/hr 1X ONCE IV Last administered on 02/05/18at 14:05; Start 02/05/18 at 14:00; Stop 02/05/18 at 15 :59; Status DC Vancomycin HCl (Vancomycin Random Level) 1 each 1X ONCE MC Last administered on 02/06/18at 05:00; Start 02/06/18 at 05:00; Stop 02/06/18 at 05:01; Status DC Sodium Chloride 1,000 ml @ 1,000 mls/hr Q1H PRN IV hypotension; Start at 08:12; Stop 02/06/18 at 14:11; Status DC Sodium Chloride 1,000 ml @ 400 mls/hr Q2H30M PRN IV PATENCY; Start 02/06/18 at 08:12; Stop 02/06/18 at 20:11; Status DC Info (PHARMACY MONITORING -- do not chart) 1 each PRN DAILY PRN MC SEE COMMENTS ; Start 02/06/18 at 08:15; Status UNV Info (PHARMACY MONITORING -- do not chart) 1 each PRN DAILY PRN MC SEE COMMENTS ; Start 02/06/18 at 08:15; Status UNV Lidocaine HCl (Xylocaine-Mpf 1% 2ml Vial) 2 ml 1X ONCE ID Last administered on 02/06/18at 08:30; Start 02/06/18 at 08:30; Stop 02/06/18 at 08:31; Status DC Lidocaine HCl (Xylocaine-Mpf 2% Vial) 2 ml STK-MED ONCE .ROUTE ; Start at 08:32; Stop 02/06/18 at 08:33; Status DC Diphenhydramine HCl (Benadryl) 50 mg 1X ONCE IVP Last administered on at 09:10; Start 02/06/18 at 09:00; Stop 02/06/18 at 09:02; Status DC Vancomycin HCl (Vancomycin Random Level) 1 each 1X ONCE MC Last administered on 02/08/18at 05:00; Start 02/08/18 at 05:00; Stop 02/08/18 at 05:01; Status DC Lidocaine HCl (Xylocaine-Mpf 2% Vial) 2 ml STK-MED ONCE .ROUTE ; Start at 09:00; Stop 02/08/18 at 07:54; Status DC Polyethylene Glycol (miraLAX PACKET) 17 gm DAILY PO Last administered on at 08:56; Start 02/08/18 at 12:30 Famotidine (Pepcid) 20 mg QHS PO Last administered on 02/12/18at 21:09; Start 02/08/18 at 21:00 Vancomycin HCl 500 mg/Sodium Chloride 100 ml @ 100 mls/hr QTUTHSA IV ; Start 02/09/18 at 16:00; Stop 02/09/18 at 16:00; Status DC Sodium Chloride 1,000 ml @ 1,000 mls/hr Q1H PRN IV hypotension; Start at 08:21; Stop 02/09/18 at 14:20; Status DC Sodium Chloride 1,000 ml @ 400 mls/hr Q2H30M PRN IV PATENCY; Start 02/09/18 at 08:21; Stop 02/09/18 at 20:20; Status DC Info (PHARMACY MONITORING -- do not chart) 1 each PRN DAILY PRN MC SEE COMMENTS ; Start 02/09/18 at 08:30; Status UNV Info (PHARMACY MONITORING -- do not chart) 1 each PRN DAILY PRN MC SEE COMMENTS ; Start 02/09/18 at 08:30; Status Cancel Diphenhydramine HCl (Benadryl) 50 mg 1X ONCE IVP Last administered on at 09:06; Start 02/09/18 at 08:30; Stop 02/09/18 at 08:31; Status DC Lidocaine HCl (Xylocaine-Mpf 2% Vial) 2 ml STK-MED ONCE .ROUTE ; Start at 08:40; Stop 02/09/18 at 08:41; Status DC Linezolid/Dextrose 300 ml @ 300 mls/hr Q12HR IV Last administered on at 21:08; Start 02/09/18 at 10:00 Gentamicin Sulfate 1 each PRN DAILY PRN MC SEE COMMENTS Last administered on at 12:53; Start 02/09/18 at 09:30 Metronidazole 100 ml @ 100 mls/hr Q8HRS IV Last administered on 02/13/18at 04: 27; Start 02/09/18 at 14:00 Gentamicin Sulfate 140 mg/ Dextrose 103.5 ml @ 207 mls/hr 1X ONCE IV Last administered on 02/09/18at 12:26; Start 02/09/18 at 12:00; Stop 02/09/18 at 12 :29; Status DC Lubiprostone (Amitiza) 8 mcg BIDWMEALS PO Last administered on 02/12/18at 17:43 ; Start 02/09/18 at 17:00 Gentamicin Sulfate 1 each 1X ONCE MC Last administered on 02/11/18at 06:00; Start 02/11/18 at 06:00; Stop 02/11/18 at 06:01; Status DC Hydromorphone HCl (Dilaudid) 2 mg 1X ONCE IV ; Start 02/10/18 at 10:30; Stop 02/10/18 at 10:31; Status DC Lidocaine HCl (Xylocaine-Mpf 2% Vial) 2 ml STK-MED ONCE .ROUTE ; Start at 09:00; Stop 02/10/18 at 13:19; Status DC Alteplase, Recombinant (Cathflo) 2 mg 1X ONCE INT CAT Last administered on at 22:18; Start 02/10/18 at 21:30; Stop 02/10/18 at 21:31; Status DC Silver Sulfadiazine (Silvadene) 25 susanna STK-MED ONCE TP ; Start 02/11/18 at 05: 56; Stop 02/11/18 at 06:57; Status DC Lidocaine HCl (Xylocaine 1% Pf 30ml Vial) 30 ml STK-MED ONCE .ROUTE ; Start at 05:57; Stop 02/11/18 at 06:58; Status DC Ondansetron HCl (Zofran) 4 mg PRN Q6HRS PRN IV NAUSEA/VOMITING; Start at 07:15; Stop 02/11/18 at 12:42; Status DC Fentanyl Citrate (Fentanyl 2ml Vial) 25 mcg PRN Q5MIN PRN IV MILD PAIN; Start 02/11/18 at 07:15; Stop 02/11/18 at 12:39; Status DC Fentanyl Citrate (Fentanyl 2ml Vial) 50 mcg PRN Q5MIN PRN IV MODERATE TO SEVERE PAIN; Start 02/11/18 at 07:15; Stop 02/11/18 at 12:40; Status DC Morphine Sulfate (Morphine Sulfate) 1 mg PRN Q10MIN PRN IV SEVERE PAIN; Start 02/11/18 at 07:15; Stop 02/11/18 at 12:41; Status DC Ringer's Solution 1,000 ml @ 30 mls/hr Q24H IV ; Start 02/11/18 at 07:15; Stop 02/11/18 at 19:14; Status Cancel Lidocaine HCl (Xylocaine-Mpf 1% 2ml Vial) 2 ml PRN 1X PRN ID PRIOR TO IV START ; Start 02/11/18 at 07:15; Stop 02/11/18 at 12:40; Status DC Hydromorphone HCl (Dilaudid) 0.5 mg PRN Q10MIN PRN IV SEV PAIN, Second choice; Start 02/11/18 at 07:15; Stop 02/11/18 at 12:40; Status DC Prochlorperazine Edisylate (Compazine) 5 mg PACU PRN PRN IV NAUSEA, MRX1; Start 02/11/18 at 07:15; Stop 02/11/18 at 12:42; Status DC Sodium Chloride 1,000 ml @ 75 mls/hr [id number] IV Last administered on at 00:23; Start 02/11/18 at 07:30; Stop 02/13/18 at 09:35; Status DC Propofol 20 ml @ As Directed STK-MED ONCE IV ; Start 02/11/18 at 07:20; Stop 02/11/18 at 07:21; Status DC Dexamethasone Sodium Phosphate (Decadron) 20 mg STK-MED ONCE .ROUTE ; Start at 07:20; Stop 02/11/18 at 07:21; Status DC Famotidine (Pepcid Vial) 20 mg STK-MED ONCE .ROUTE ; Start 02/11/18 at 07:20; Stop 02/11/18 at 07:21; Status DC Lidocaine HCl (Lidocaine Pf 2% Vial) 5 ml STK-MED ONCE .ROUTE ; Start 02/11/18 at 07:20; Stop 02/11/18 at 07:21; Status DC Ondansetron HCl (Zofran) 4 mg STK-MED ONCE .ROUTE ; Start 02/11/18 at 07:20; Stop 02/11/18 at 07:21; Status DC Fentanyl Citrate (Fentanyl 2ml Vial) 100 mcg STK-MED ONCE .ROUTE ; Start at 07:20; Stop 02/11/18 at 07:21; Status DC Midazolam HCl (Versed) 2 mg STK-MED ONCE .ROUTE ; Start 02/11/18 at 07:21; Stop 02/11/18 at 07:22; Status DC Ephedrine Sulfate (ePHEDrine PF IN SALINE SYRINGE) 50 mg STK-MED ONCE IV ; Start 02/11/18 at 08:22; Stop 02/11/18 at 08:23; Status DC Desflurane (Suprane) 30 ml STK-MED ONCE IH ; Start 02/11/18 at 08:41; Stop at 08:42; Status DC Sodium Chloride 1,000 ml @ 1,000 mls/hr Q1H PRN IV hypotension; Start at 09:57; Stop 02/11/18 at 15:56; Status DC Albumin Human 200 ml @ 200 mls/hr 1X PRN PRN IV Hypotension; Start 02/11/18 at 10:00; Stop 02/11/18 at 15:59; Status DC Sodium Chloride 1,000 ml @ 400 mls/hr Q2H30M PRN IV PATENCY; Start 02/11/18 at 09:57; Stop 02/11/18 at 21:56; Status DC Info (PHARMACY MONITORING -- do not chart) 1 each PRN DAILY PRN MC SEE COMMENTS ; Start 02/11/18 at 10:00; Status UNV Info (PHARMACY MONITORING -- do not chart) 1 each PRN DAILY PRN MC SEE COMMENTS ; Start 02/11/18 at 10:00; Status UNV Lidocaine HCl (Xylocaine-Mpf 1% 2ml Vial) 2 ml 1X ONCE INJ ; Start 02/11/18 at 10:00; Stop 02/11/18 at 10:13; Status DC Gentamicin Sulfate 100 mg/ Dextrose 52.5 ml @ 105 mls/hr QTUTHSA IV Last administered on 02/11/18at 19:31; Start 02/11/18 at 16:00 Gentamicin Sulfate 1 each 1X ONCE MC ; Start 02/13/18 at 05:00; Stop at 05:00; Status DC Lidocaine HCl (Xylocaine-Mpf 2% Vial) 2 ml STK-MED ONCE .ROUTE ; Start at 13:22; Stop 02/11/18 at 13:23; Status DC Lidocaine HCl (Xylocaine-Mpf 2% Vial) 2 ml STK-MED ONCE .ROUTE ; Start at 14:00; Stop 02/12/18 at 08:48; Status DC Pantoprazole Sodium (Protonix) 40 mg DAILYAC PO Last administered on at 17:43; Start 02/12/18 at 16:00 Sodium Chloride 1,000 ml @ 1,000 mls/hr Q1H PRN IV hypotension; Start at 08:36; Stop 02/13/18 at 14:35 Info (PHARMACY MONITORING -- do not chart) 1 each PRN DAILY PRN MC SEE COMMENTS ; Start 02/13/18 at 08:45; Status UNV Info (PHARMACY MONITORING -- do not chart) 1 each PRN DAILY PRN MC SEE COMMENTS ; Start 02/13/18 at 08:45 Insulin Glargine (Lantus) 15 units QHS SQ ; Start 02/13/18 at 21:00 Active Scripts Active Percocet 10-325 Mg Tablet (Oxycodone/Acetaminophen) 1 Each Tablet 1 Tab PO Q4HRS Brilinta (Ticagrelor) 90 Mg Tablet 90 Mg PO BID 30 Days Morphine Sulfate Er (Morphine Sulfate) 15 Mg Tablet.er 15 Mg PO BID Reported Brilinta (Ticagrelor) 90 Mg Tablet 90 Mg PO BID Lidocaine 1 Each Adh..patch 1 Each TP PRN DAILY PRN Calcitriol 0.25 Mcg Capsule 1 Cap PO DAILY Tegretol (Carbamazepine) 200 Mg Tablet 1 Tab PO BID Tramadol Hcl 50 Mg Tablet 50 Mg PO Q4HRS PRN Lantus Solostar (Insulin Glargine,Hum.rec.anlog) 100 Unit/1 Ml Insuln.pen 22 Unit SQ QHS Diflucan (Fluconazole) 100 Mg Tablet 100 Mg PO PRN Carvedilol 3.125 Mg Tablet 12.5 Mg PO BID Erythromycin (Erythromycin Base) 250 Mg Capsule.dr 250 Mg PO BID Cardizem Cd (Diltiazem Hcl) 180 Mg Cap.er.24h 120 Mg PO DAILY Amiodarone Hcl 200 Mg Tablet 1 Tab PO DAILY Nystatin 15 Gm Powder 1 Susanna TP PRN BID PRN Proventil Hfa Inhaler (Albuterol Sulfate) 6.7 Gm Hfa.aer.ad 2 Puff IH BID PRN Zofran (Ondansetron Hcl) 4 Mg Tablet 4 Mg PO Q6-8HRS PRN Nephro-Shabbir Tablet (Folic Acid/Vitamin B Comp W-C) 0.8 Mg Tablet 1 Tab PO DAILY Tricor (Fenofibrate Nanocrystallized) 145 Mg Tablet 1 Tab PO HS Lipitor (Atorvastatin Calcium) 80 Mg Tablet 80 Mg PO HS Niacin 500 Mg Tablet 500 Mg PO HS Novolog (Insulin Aspart) 100 Unit/1 Ml Cartridge 0 SQ TIDAC sliding scale Aspirin 325 Mg Tablet 325 Mg PO DAILY Furosemide 80 Mg Tablet 80 Mg PO BID Docusate Sodium 100 Mg Capsule 1 Cap PO PRN PRN Nitrostat (Nitroglycerin) 0.4 Mg Tab.subl 0.4 Mg SL PRN Q5MIN PRN Take as needed for chest pain Vitals/I & O Vital Sign - Last 24 Hours 02/12/18 02/12/18 02/12/18 02/12/18 15:00 17:43 17:43 19:10 Temp 97.8 97.5 97.8 97.5 Pulse 82 82 67 Resp 18 16 B/P (MAP) 102/45 (64) 102/45 114/50 (71) Pulse Ox 98 100 O2 Delivery Room Air Room Air Nasal Cannula O2 Flow Rate 2.0 10/19/18 02/12/18 02/12/18 02/12/18 20:00 21:08 21:10 23:10 Temp 97.8 97.8 Pulse 69 Resp 16 B/P (MAP) 103/49 (67) Pulse Ox 100 O2 Delivery Room Air Room Air Room Air Nasal Cannula O2 Flow Rate 2.0 2.0 02/13/18 02/13/18 02/13/18 02/13/18 00:23 00:55 03:10 04:28 Temp 98.0 98.0 Pulse 70 Resp 16 B/P (MAP) 124/59 (80) Pulse Ox 100 O2 Delivery Room Air Room Air Nasal Cannula Room Air O2 Flow Rate 2.0 02/13/18 02/13/18 02/13/18 02/13/18 05:43 07:00 07:07 09:11 Temp 97.7 97.7 Pulse 65 Resp 16 B/P (MAP) 111/52 (71) Pulse Ox 94 94 O2 Delivery Room Air Nasal Cannula Room Air Room Air O2 Flow Rate 2.0 2.0 02/13/18 02/13/18 09:11 13:37 Temp 98.1 98.1 Pulse 75 Resp 16 B/P (MAP) 137/59 (85) Pulse Ox 100 O2 Delivery Room Air Nasal Cannula O2 Flow Rate 2.0 Intake and Output 02/12/18 02/12/18 02/13/18 15:00 23:00 07:00 Intake Total 1200 ml 0 ml Balance 1200 ml 0 ml QUIN BARRY MD Feb 13, 2018 14:09
[2018-02-13] MEDS: FOLIC/VIT B COMP W-C (RENAL) TABLET. PO SCH (14:15)
[2018-02-13] MEDS: CALCITRIOL 0.25 MCG CAPSULE. PO SCH (14:15)
[2018-02-13] MEDS: LUBIPROSTONE 8 MCG CAPSULE PO SCH ×2 (14:15→18:38)
[2018-02-13] MEDS: POLYETHYLENE GLYCOL 3350 17 GM PACKET. PO SCH (14:16)
[2018-02-13] MEDS: PROCHLORPERAZINE 10 MG/2 ML VIAL. IV PRN ×2 (14:16→20:35)
[2018-02-13] MEDS: ASPIRIN ENTERIC COATED 81 MG TABLET.DR. PO SCH (14:17)
[2018-02-13] MEDS: PANTOPRAZOLE 40 MG TABLET.DR. PO SCH (14:17)
[2018-02-13] MEDS: CARVEDILOL 12.5 MG TABLET. PO SCH ×2 (14:17→18:38)
[2018-02-13] MEDS: TICAGRELOR 90 MG TABLET. PO SCH ×2 (14:17→21:54)
[2018-02-13] MEDS: FUROSEMIDE 80 MG TABLET. PO SCH ×2 (14:18→18:38)
[2018-02-13] MEDS: LACTOBACILLUS RHAMNOSUS GG 1 CAPSULE. PO SCH ×2 (14:18→21:54)
[2018-02-13] MEDS: AMIODARONE HCL 200 MG TABLET. PO SCH (14:18)
[2018-02-13] MEDS: MORPHINE ER 15 MG TABLET.ER PO SCH ×2 (14:19→21:54)
[2018-02-13] MEDS: ERYTHROMYCIN BASE 250 MG TABLET PO SCH ×2 (14:19→21:53)
[2018-02-13 15:00] VITALS: BP 136/55
[2018-02-13 19:00] VITALS: BP 132/56
[2018-02-13] MEDS ORDERED: ALTEPLASE 2 MG VIAL INT CAT ONE (19:00)
[2018-02-13] MEDS: GENTAMICIN SULFATE IV SCH (20:42)
[2018-02-13] MEDS: DEXTROSE 5% IV SCH (20:42)
[2018-02-13] MEDS ORDERED: INSULIN GLARGINE 300 UNITS/3 ML INSULN.PEN. SQ SCH (21:00)
[2018-02-13] MEDS: ATORVASTATIN CALCIUM 40 MG TABLET. PO SCH (21:53)
[2018-02-13] MEDS: FENOFIBRATE,MICRONIZED 134 MG CAPSULE PO SCH (21:54)
[2018-02-13] MEDS: FAMOTIDINE 20 MG TABLET. PO SCH (21:54)
[2018-02-13] MEDS: ONDANSETRON ODT 4 MG TAB.RAPDIS. PO PRN (21:54)
[2018-02-13] MEDS: PATCH REMOVAL. MC SCH (21:54)
[2018-02-13] MEDS: NIACIN ER 500 MG TABLET.ER PO SCH (21:57)
[2018-02-13 22:47] VITALS: BP 102/45
[2018-02-14] MEDS: HYDROmorphone 2 MG/ML VIAL IV PRN ×6 (02:23→22:31)
[2018-02-14 03:00] VITALS: BP 103/49
[2018-02-14 06:21] LABS: BASO % 0 % (0-3); EOS # 0.1 x10^3/uL (0.0-0.7); EOS % 1 % (0-3); HEMATOCRIT 23.8 % (36.0-47.0); HEMOGLOBIN 7.8 g/dL (12.0-15.5); LYMPH # 0.8 x10^3/uL (1.0-4.8); LYMPH % 6 % (24-48); MEAN CORPUSCULAR HEMOGLOBIN 31 pg (25-35); MEAN CORPUSCULAR HGB CONC 33 g/dL (31-37); MEAN CORPUSCULAR VOLUME 96 fL (79-100); MONO # 1.2 x10^3/uL (0.0-1.1); MONO % 9 % (0-9); NEUT # 11.5 x10^3uL (1.8-7.7); NEUT % 84 % (31-73); PLATELET COUNT 302 x10^3/uL (140-400); RED BLOOD COUNT 2.49 x10^6/uL (3.50-5.40); RED CELL DISTRIBUTION WIDTH 17.9 % (11.5-14.5); WHITE BLOOD COUNT 13.6 x10^3/uL (4.0-11.0)
[2018-02-14 06:32] LABS: CALCIUM 8.2 mg/dL (8.5-10.1); CREATININE 2.8 mg/dL (0.6-1.0); GFR 17.7; POTASSIUM 3.8 mmol/L (3.5-5.1)
[2018-02-14 07:00] VITALS: BP 147/62
[2018-02-14] MEDS: INSULIN LISPRO 300 UNITS/3 ML INSULN.PEN. SQ SCH ×4 (08:00→17:53)
[2018-02-14] MEDS: LUBIPROSTONE 8 MCG CAPSULE PO SCH ×2 (08:00→17:00)
[2018-02-14] MEDS: FOLIC/VIT B COMP W-C (RENAL) TABLET. PO SCH (09:00)
[2018-02-14] MEDS: POLYETHYLENE GLYCOL 3350 17 GM PACKET. PO SCH (09:00)
[2018-02-14] MEDS: traMADol 50 MG TABLET PO PRN (09:19)
[2018-02-14] MEDS: PANTOPRAZOLE 40 MG TABLET.DR. PO SCH (09:19)
[2018-02-14] MEDS: carBAMazepine 200 MG TABLET PO SCH ×2 (09:20→20:17)
[2018-02-14] MEDS: ERYTHROMYCIN BASE 250 MG TABLET PO SCH ×2 (09:20→20:16)
[2018-02-14] MEDS: CARVEDILOL 12.5 MG TABLET. PO SCH ×2 (09:21→17:35)
[2018-02-14] MEDS: LACTOBACILLUS RHAMNOSUS GG 1 CAPSULE. PO SCH ×2 (09:21→20:16)
[2018-02-14] MEDS: ASPIRIN ENTERIC COATED 81 MG TABLET.DR. PO SCH (09:21)
[2018-02-14] MEDS: TICAGRELOR 90 MG TABLET. PO SCH ×2 (09:21→20:16)
[2018-02-14] MEDS: AMIODARONE HCL 200 MG TABLET. PO SCH (09:21)
[2018-02-14] MEDS: MORPHINE ER 15 MG TABLET.ER PO SCH ×2 (09:22→20:16)
[2018-02-14] MEDS: FUROSEMIDE 80 MG TABLET. PO SCH ×2 (09:22→17:35)
[2018-02-14] MEDS: CALCITRIOL 0.25 MCG CAPSULE. PO SCH (09:23)
[2018-02-14 10:43] VITALS: BP 120/53
[2018-02-14] MEDS: PROCHLORPERAZINE 10 MG/2 ML VIAL. IV PRN ×2 (12:21→18:38)
--- NOTE | 2018-02-14 13:07 | PDOC ---
PROGRESS NOTES Chief Complaint Chief Complaint RIght groin sx wound infection s/p i and d 02/01 and 02/05 with wound vac on, wound cx + Kpna recent right leg PAD s/p R fem to pop bypass ESRD on dialysis h/o L BKA CAD w/ hx CABG, EF 50% Diabetic retinopathy worsening vision bl recently with h/o Macular degeneration, retinal bleeding and Cataracts H/O CAD with multiple stents Leukocytosis post steroids - trending down Right lower extremity swelling with superficial skin breakdown from injury on with abrasion and subsequent redness and swelling, treated with outpatient Keflex End-stage renal disease, on dialysis via AV fistula here ,at home per pt is on PD. ANTIBIOTIC ALLERGY TO MEROPENEM, PIPERACILLIN AND TAZOBACTAM CAUSING PEELING AND BLEEDING OF THE SKIN. ALSO, SULFA. TOLERATES KEFLEX AND HAS BEEN ON CEFAZOLIN, THOUGH HAS CAUSED ITCHING. H/o recent urinary tract infection, though urine cultures are negative, on Cipro POA for 5 days. A- fib, amiodarone therapy Gastroparesis, E. Mycin Left retinal optic disc drusen, bl blurry vision EGD 02/05 non erosive gatritis decubitus ulcer gastroparesis Distended hydropic gallbladder containing sludge. Hepatomegaly. 1.4 cm lobular lesion along the left renal cortex stable plan: fu with id, vascular, renal, gi on wound vac, wound care changed abx to zyvox, genta, flagyl as per ID. neg bcx so far. wound cx + kPNA cont home meds dvt ppx discussed with pt about the US finding, likely no sx intervention needed at this time point given pt has no abd pain and other issues going on, fu with GI, HIDA done. talked to wound care, FU WITH vascular , i and d 02/05 again. watching closely since higher wbc again. dc select when stable. dc lantus to 15u qhs, change to high dose ssi. talked to ID yesterday, who concerning possible retinal bleeding or detachment and recommend transfer. we find out [facility] have inpt ophthal service now. however, [facility] refused transfer. i talked to [employer] supervisor today, found dr. Oshea discussed with opthal 2 weeks ago and they would not do anything given pt has acute issues in Hosp with groin infection and i and d. we will try to transfer to or [facility]. discussed with sw and pt. waiting for [facility] to take her for opthal [place] if they have bed. History of Present Illness History of Present Illness Pt seen and examined Dw RN Sitting up right 02/09/18:higher wbc 19, more nausea. has n/o gastroparesis told me has decubitus ulcer, last pic 02/07 looks ok 02/10: wbc better to 14, but there is some new necrotic tissues at the wound edge seen when changing the VAC US showed gallbladder sludge 02/11 i and d again for necrotic tissues at right thigh wound 02/12: WBC down to 11. HIDA scan no CBD obstruction, EF 40%. [facility] refuse transfer given no bed 02/13: hypoglycemia. : wbc up to 13.6, waiting for [facility] to take her hopefully which had 2 beds last night as per pt Vitals Vitals Vital Signs Date Time Temp Pulse Resp B/P (MAP) Pulse Ox O2 Delivery O2 Flow Rate FiO2 02/14/18 12:25 98 Nasal Cannula 2.0 02/14/18 10:43 97.8 72 20 120/53 (75) 97.8 Physical Exam Physical Exam GENERAL: Propped up in bed, alert, dialyzing HENT: OC/Op- dry LUNGS: Clear. HEART: S1, S2 regular. ABDOMEN: Soft, NT, ND EXTREMITIES: Left BKA. RLE less swollen and red; + wrinkles. wound vac in place Heel without wound NEUROLOGIC: Alert, responds appropriately SKIN: without rash Tunnelled LIJ (01/29) clean General: Alert, Oriented X3, Cooperative, No acute distress Heart: Regular rate, Normal S1, Normal S2, No murmurs, Gallops Lungs: Wheezing Abdomen: Normal bowel sounds, Soft, No tenderness, No hepatosplenomegaly, No masses Extremities: Other (wound inspected. Excellent muscle viability. Some washburn exudate peripheral edges superior and medial. Should respond to further wound suction dressing. measurements recorded.) Skin: No breakdown, Other (dehiscence of the proximal right common femoral incision and vein harvest site with lower extremity edema and mild cellulitis) Labs LABS Laboratory Tests Test 02/13/18 13:28 02/13/18 16:51 02/13/18 21:10 02/14/18 06:10 Glucose (Fingerstick) 98 mg/dL (70-99) 116 mg/dL (70-99) 133 mg/dL (70-99) White Blood Count 13.6 x10^3/uL (4.0-11.0) Red Blood Count 2.49 x10^6/uL (3.50-5.40) Hemoglobin 7.8 g/dL (12.0-15.5) Hematocrit 23.8 % (36.0-47.0) Mean Corpuscular Volume 96 fL (79-100) Mean Corpuscular Hemoglobin 31 pg (25-35) Mean Corpuscular Hemoglobin Concent 33 g/dL (31-37) Red Cell Distribution Width 17.9 % (11.5-14.5) Platelet Count 302 x10^3/uL (140-400) Neutrophils (%) (Auto) 84 % (31-73) Lymphocytes (%) (Auto) 6 % (24-48) Monocytes (%) (Auto) 9 % (0-9) Eosinophils (%) (Auto) 1 % (0-3) Basophils (%) (Auto) 0 % (0-3) Neutrophils # (Auto) 11.5 x10^3uL (1.8-7.7) Lymphocytes # (Auto) 0.8 x10^3/uL (1.0-4.8) Monocytes # (Auto) 1.2 x10^3/uL (0.0-1.1) Eosinophils # (Auto) 0.1 x10^3/uL (0.0-0.7) Basophils # (Auto) 0.0 x10^3/uL (0.0-0.2) Sodium Level 138 mmol/L (136-145) Potassium Level 3.8 mmol/L (3.5-5.1) Chloride Level 102 mmol/L (98-107) Carbon Dioxide Level 32 mmol/L (21-32) Anion Gap 4 (6-14) Blood Urea Nitrogen 8 mg/dL (7-20) Creatinine 2.8 mg/dL (0.6-1.0) Estimated GFR (Cockcroft-Gault) 17.7 Glucose Level 112 mg/dL (70-99) Calcium Level 8.2 mg/dL (8.5-10.1) Test 02/14/18 07:39 02/14/18 11:02 Glucose (Fingerstick) 90 mg/dL (70-99) 128 mg/dL (70-99) Assessment and Plan Assessmemt and Plan Problems Medical Problems: (1) Chronic renal failure Status: Acute Comment Review of Relevant I have reviewed the following items bert (where applicable) has been applied. Labs Laboratory Tests Test 02/12/18 15:30 02/12/18 16:53 02/12/18 21:07 02/13/18 00:39 Clostridium difficile Toxin (PCR) Negative (Negative) Glucose (Fingerstick) 301 mg/dL (70-99) 201 mg/dL (70-99) 159 mg/dL (70-99) Test 02/13/18 07:39 02/13/18 08:04 02/13/18 09:02 02/13/18 13:28 Glucose (Fingerstick) 44 mg/dL (70-99) 54 mg/dL (70-99) 80 mg/dL (70-99) 98 mg/dL (70-99) Test 02/13/18 16:51 02/13/18 21:10 02/14/18 06:10 02/14/18 07:39 Glucose (Fingerstick) 116 mg/dL (70-99) 133 mg/dL (70-99) 90 mg/dL (70-99) White Blood Count 13.6 x10^3/uL (4.0-11.0) Red Blood Count 2.49 x10^6/uL (3.50-5.40) Hemoglobin 7.8 g/dL (12.0-15.5) Hematocrit 23.8 % (36.0-47.0) Mean Corpuscular Volume 96 fL (79-100) Mean Corpuscular Hemoglobin 31 pg (25-35) Mean Corpuscular Hemoglobin Concent 33 g/dL (31-37) Red Cell Distribution Width 17.9 % (11.5-14.5) Platelet Count 302 x10^3/uL (140-400) Neutrophils (%) (Auto) 84 % (31-73) Lymphocytes (%) (Auto) 6 % (24-48) Monocytes (%) (Auto) 9 % (0-9) Eosinophils (%) (Auto) 1 % (0-3) Basophils (%) (Auto) 0 % (0-3) Neutrophils # (Auto) 11.5 x10^3uL (1.8-7.7) Lymphocytes # (Auto) 0.8 x10^3/uL (1.0-4.8) Monocytes # (Auto) 1.2 x10^3/uL (0.0-1.1) Eosinophils # (Auto) 0.1 x10^3/uL (0.0-0.7) Basophils # (Auto) 0.0 x10^3/uL (0.0-0.2) Sodium Level 138 mmol/L (136-145) Potassium Level 3.8 mmol/L (3.5-5.1) Chloride Level 102 mmol/L (98-107) Carbon Dioxide Level 32 mmol/L (21-32) Anion Gap 4 (6-14) Blood Urea Nitrogen 8 mg/dL (7-20) Creatinine 2.8 mg/dL (0.6-1.0) Estimated GFR (Cockcroft-Gault) 17.7 Glucose Level 112 mg/dL (70-99) Calcium Level 8.2 mg/dL (8.5-10.1) Test 02/14/18 11:02 Glucose (Fingerstick) 128 mg/dL (70-99) Laboratory Tests Test 02/13/18 13:28 02/13/18 16:51 02/13/18 21:10 02/14/18 06:10 Glucose (Fingerstick) 98 mg/dL (70-99) 116 mg/dL (70-99) 133 mg/dL (70-99) White Blood Count 13.6 x10^3/uL (4.0-11.0) Red Blood Count 2.49 x10^6/uL (3.50-5.40) Hemoglobin 7.8 g/dL (12.0-15.5) Hematocrit 23.8 % (36.0-47.0) Mean Corpuscular Volume 96 fL (79-100) Mean Corpuscular Hemoglobin 31 pg (25-35) Mean Corpuscular Hemoglobin Concent 33 g/dL (31-37) Red Cell Distribution Width 17.9 % (11.5-14.5) Platelet Count 302 x10^3/uL (140-400) Neutrophils (%) (Auto) 84 % (31-73) Lymphocytes (%) (Auto) 6 % (24-48) Monocytes (%) (Auto) 9 % (0-9) Eosinophils (%) (Auto) 1 % (0-3) Basophils (%) (Auto) 0 % (0-3) Neutrophils # (Auto) 11.5 x10^3uL (1.8-7.7) Lymphocytes # (Auto) 0.8 x10^3/uL (1.0-4.8) Monocytes # (Auto) 1.2 x10^3/uL (0.0-1.1) Eosinophils # (Auto) 0.1 x10^3/uL (0.0-0.7) Basophils # (Auto) 0.0 x10^3/uL (0.0-0.2) Sodium Level 138 mmol/L (136-145) Potassium Level 3.8 mmol/L (3.5-5.1) Chloride Level 102 mmol/L (98-107) Carbon Dioxide Level 32 mmol/L (21-32) Anion Gap 4 (6-14) Blood Urea Nitrogen 8 mg/dL (7-20) Creatinine 2.8 mg/dL (0.6-1.0) Estimated GFR (Cockcroft-Gault) 17.7 Glucose Level 112 mg/dL (70-99) Calcium Level 8.2 mg/dL (8.5-10.1) Test 02/14/18 07:39 02/14/18 11:02 Glucose (Fingerstick) 90 mg/dL (70-99) 128 mg/dL (70-99) Microbiology 02/06/18 Blood Culture - Final, Complete NO GROWTH AFTER 5 DAYS 01/27/18 Anaerobic/Aerobic Culture - Final, Complete 01/27/18 Anaerobic Culture Result 1 (ROSALIND) - Final, Complete 01/27/18 Aerobic Culture - Final, Complete 01/27/18 Aerobic Culture Result 1 (ROSALIND) - Final, Complete 01/27/18 Antimicrobic Susceptibility - Final, Complete 01/27/18 Gram Stain - Final, Complete 01/27/18 Gram Stain Result 1 (ROSALIND) - Final, Complete 01/27/18 Gram Stain Result 2 (ROSALIND) - Final, Complete Medications Current Medications Hydromorphone HCl (Dilaudid) 2 mg 1X ONCE IV Last administered on 01/26/18at 22 :39; Start 01/26/18 at 22:00; Stop 01/26/18 at 22:01; Status DC Vancomycin HCl (Vanco Per Pharmacy) 1 each PRN DAILY PRN MC SEE COMMENTS Last administered on 01/31/18at 17:20; Start 01/26/18 at 22:45; Stop 02/01/18 at 11:41 ; Status DC Vancomycin HCl 1.75 gm/Sodium Chloride 500 ml @ 250 mls/hr 1X ONCE IV Last administered on 01/26/18at 23:53; Start 01/26/18 at 23:00; Stop 01/27/18 at 00:59 ; Status DC Ondansetron HCl (Zofran) 4 mg PRN Q8HRS PRN IV NAUSEA/VOMITING 1ST CHOICE; Start 01/26/18 at 23:15; Stop 01/27/18 at 23:14; Status DC Sodium Chloride 1,000 ml @ 75 mls/hr [id number] IV Last administered on at 00:39; Start 01/26/18 at 23:30; Stop 01/27/18 at 23:29; Status DC Pharmacy Consult (C.diff Med Screen By Rx) 1 each 1X ONCE MC ; Start 01/27/18 at 01:00; Stop 01/27/18 at 01:01; Status Cancel Influenza Virus Vaccine (Afluria Trivalent [id number] Syringe) 0.5 ml ONCE ONCE VAX IM Last administered on 01/27/18at 09:00; Start 01/27/18 at 09:00; Stop 01/27/18 at 09:01; Status DC Vancomycin HCl (Vancomycin Random Level) 1 each 1X ONCE MC Last administered on 01/28/18at 05:00; Start 01/28/18 at 05:00; Stop 01/28/18 at 05:01; Status DC Hydromorphone HCl (Dilaudid) 1 mg PRN Q3HRS PRN IV SEVERE PAIN Last administered on 02/14/18at 12:25; Start 01/27/18 at 03:30 Ondansetron HCl (Zofran) 4 mg PRN Q6HRS PRN IV NAUSEA/VOMITING; Start 01/27/18 at 10:45; Stop 01/27/18 at 18:00; Status DC Fentanyl Citrate (Fentanyl 2ml Vial) 25 mcg PRN Q5MIN PRN IV MILD PAIN; Start 01/27/18 at 10:45; Stop 01/27/18 at 18:00; Status DC Fentanyl Citrate (Fentanyl 2ml Vial) 50 mcg PRN Q5MIN PRN IV MODERATE TO SEVERE PAIN; Start 01/27/18 at 10:45; Stop 01/27/18 at 18:00; Status DC Morphine Sulfate (Morphine Sulfate) 1 mg PRN Q10MIN PRN IV SEVERE PAIN Last administered on 01/27/18at 16:28; Start 01/27/18 at 10:45; Stop 01/27/18 at 18:00 ; Status DC Ringer's Solution 1,000 ml @ 30 mls/hr Q24H IV Last administered on 01/27/18at 10:35; Start 01/27/18 at 10:35; Stop 01/27/18 at 19:36; Status DC Lidocaine HCl (Xylocaine-Mpf 1% 2ml Vial) 2 ml 1X PRN PRN ID IV START; Start 01/27/18 at 10:45; Stop 01/27/18 at 18:00; Status DC Hydromorphone HCl (Dilaudid) 0.5 mg PRN Q10MIN PRN IV SEV PAIN, Second choice Last administered on 01/27/18at 15:59; Start 01/27/18 at 10:45; Stop 01/27/18 at 18:00; Status DC Prochlorperazine Edisylate (Compazine) 5 mg PACU PRN PRN IV NAUSEA, MRX1; Start 01/27/18 at 10:45; Stop 01/27/18 at 18:00; Status DC Amiodarone HCl (Cordarone) 200 mg DAILY PO Last administered on 02/14/18at 09: 21; Start 01/27/18 at 12:30 Aspirin (Anthony Aspirin) 325 mg DAILY PO Last administered on 01/28/18at 09:13; Start 01/27/18 at 12:30; Stop 01/28/18 at 14:26; Status DC Carbamazepine (TEGretol) 200 mg BID PO Last administered on 02/14/18at 09:20; Start 01/27/18 at 12:30 Carvedilol (Coreg) 12.5 mg BIDWMEALS PO Last administered on 02/14/18at 09:21; Start 01/27/18 at 12:30 Vitamin B Complex/ Vitamin C (Melly-Shabbir) 1 tab DAILY PO Last administered on 09:00; Start 01/27/18 at 12:30 Furosemide (Lasix) 80 mg [id number] PO Last administered on 02/14/18 09:22; Start 01/27/18 at 12:30 Insulin Glargine (Lantus) 22 units QHS SQ Last administered on 02/12/18 21:25 ; Start 01/27/18 at 21:00; Stop 02/13/18 at 09:35; Status DC Morphine Sulfate (Ms Contin) 15 mg BID PO Last administered on 02/14/18 09:22 ; Start 01/27/18 at 12:30 Nitroglycerin (Nitrostat) 0.4 mg PRN Q5MIN PRN SL CHEST PAIN; Start 01/27/18 at 12:00 Nystatin (Nystop) 1 susanna PRN BID PRN TP SKIN BREAKDOWN; Start 01/27/18 at 12:00 Tramadol HCl (Ultram) 50 mg PRN Q4HRS PRN PO HEADACHE Last administered on 09:19; Start 01/27/18 at 12:00 Non-Formulary Medication (Albuterol Sulfate (Proventil Hfa Inhaler)) 2 puff BID PRN IH FOR ASTHMA; Start 01/27/18 at 12:00; Status UNV Atorvastatin Calcium (Lipitor) 80 mg QHS PO Last administered on 02/13/18 21: 53; Start 01/27/18 at 21:00 Calcitriol (Rocaltrol) 0.25 mcg DAILY PO Last administered on 02/14/18 09:23 ; Start 01/27/18 at 12:30 Diltiazem HCl (Cardizem 24hr Cd) 120 mg DAILY PO Last administered on 09:22; Start 01/27/18 at 12:30 Erythromycin (E-Mycin) 250 mg BID PO Last administered on 02/14/18 09:20; Start 01/27/18 at 21:00 Fenofibrate (Lofibra) 134 mg QHS PO Last administered on 02/13/18 21:54; Start 01/27/18 at 21:00 Non-Formulary Medication (Fluconazole (Diflucan)) 100 mg PRN PO ; Start at 12:00; Status UNV Lidocaine (Lidoderm) 1 patch PRN DAILY PRN TD PAIN; Start 01/27/18 at 09:00 Niacin (Slo-Niacin) 500 mg QHS PO Last administered on 02/13/18at 21:57; Start 01/27/18 at 21:00 Ondansetron HCl (Zofran Odt) 4 mg PRN Q6HRS PRN PO NAUSEA/VOMITING Last administered on 02/13/18at 21:54; Start 01/27/18 at 12:15 Miscellaneous (Lidoderm Patch Removal) 1 ea QHS MC Last administered on at 21:54; Start 01/27/18 at 21:00 Albuterol Sulfate (Ventolin Neb Soln) 2.5 mg PRN BID PRN NEB SHORTNESS OF BREATH Last administered on 01/27/18at 21:59; Start 01/27/18 at 12:30 Lidocaine HCl (Lidocaine 1% 50ml Vial) 50 ml 1X ONCE INJ Last administered on 01/27/18at 14:06; Start 01/27/18 at 12:45; Stop 01/27/18 at 12:46; Status DC Hydromorphone HCl (Dilaudid) 2 mg STK-MED ONCE .ROUTE ; Start 01/27/18 at 12:36 ; Stop 01/27/18 at 12:38; Status DC Propofol 20 ml @ As Directed STK-MED ONCE IV ; Start 01/27/18 at 12:38; Stop at 12:39; Status DC Bacitracin 45853 unit/Sodium Chloride 3,000 ml @ 0 mls/hr 1X ONCE IR ; Start 01/27/18 at 13:15; Stop 01/27/18 at 13:16; Status Cancel Dexamethasone Sodium Phosphate (Decadron) 20 mg STK-MED ONCE .ROUTE ; Start 01/27/18 at 13:11; Stop 01/27/18 at 13:12; Status DC Ondansetron HCl (Zofran) 4 mg STK-MED ONCE .ROUTE ; Start 01/27/18 at 13:11; Stop 01/27/18 at 13:12; Status DC Sevoflurane (Ultane) 30 ml STK-MED ONCE IH ; Start 01/27/18 at 13:11; Stop 01/27 at 13:12; Status DC Bacitracin (Bacitracin) 50,000 unit STK-MED ONCE IRR Last administered on at 13:58; Start 01/27/18 at 12:14; Stop 01/27/18 at 13:16; Status DC Clopidogrel Bisulfate (Plavix) 75 mg DAILYWBKFT PO Last administered on at 09:13; Start 01/28/18 at 08:00; Stop 01/28/18 at 14:28; Status DC Hydromorphone HCl (Dilaudid) 2 mg STK-MED ONCE .ROUTE ; Start 01/27/18 at 15:38 ; Stop 01/27/18 at 15:40; Status DC Gentamicin Sulfate 235 mg/ Dextrose 105.875 ml @ 105.875 mls/hr 1X ONCE IV Last administered on 01/27/18at 19:56; Start 01/27/18 at 16:00; Stop 01/27/18 at 16:59; Status DC Lactobacillus Rhamnosus (Culturelle) 1 cap BID PO Last administered on at 09:21; Start 01/27/18 at 21:00 Cefepime HCl 1 gm/ Dextrose 50 ml @ 100 mls/hr DAILY IV ; Start 01/29/18 at 09: 00; Status UNV Metronidazole 100 ml @ 100 mls/hr Q12HR IV Last administered on 02/02/18at 21: 00; Start 01/28/18 at 10:00; Stop 02/03/18 at 10:49; Status DC Cefepime HCl (Maxipime) 1 gm Q24H IVP Last administered on 02/03/18at 10:54; Start 01/28/18 at 10:00; Stop 02/04/18 at 12:02; Status DC Lidocaine HCl (Xylocaine-Mpf 2% Vial) 2 ml STK-MED ONCE .ROUTE ; Start 01/28/18 at 11:41; Stop 01/28/18 at 11:42; Status DC Sodium Chloride 1,000 ml @ 1,000 mls/hr Q1H PRN IV hypotension; Start 01/28/18 at 12:09; Stop 01/28/18 at 18:08; Status DC Info (PHARMACY MONITORING -- do not chart) 1 each PRN DAILY PRN MC SEE COMMENTS ; Start 01/28/18 at 12:15; Status UNV Info (PHARMACY MONITORING -- do not chart) 1 each PRN DAILY PRN MC SEE COMMENTS ; Start 01/28/18 at 12:15; Stop 01/31/18 at 09:10; Status DC Lidocaine HCl (Xylocaine-Mpf 2% Vial) 2 ml 1X ONCE INJ ; Start 01/28/18 at 12: 15; Stop 01/28/18 at 12:21; Status DC Ticagrelor (Brilinta) 90 mg BID PO Last administered on 02/14/18at 09:21; Start 01/28/18 at 21:00 Diphenhydramine HCl (Benadryl) 25 mg PRN Q6HRS PRN PO ITCHING; Start 01/28/18 at 14:15 Aspirin (Ecotrin) 81 mg DAILYWBKFT PO Last administered on 02/14/18at 09:21; Start 01/29/18 at 08:00 Insulin Human Lispro (HumaLOG) 0-5 UNITS TIDWMEALS SQ Last administered on at 17:48; Start 01/28/18 at 17:00 Dextrose (Dextrose 50%-Water Syringe) 12.5 gm PRN Q15MIN PRN IV SEE COMMENTS Last administered on 02/05/18at 08:50; Start 01/28/18 at 14:45 Hydralazine HCl (Apresoline) 10 mg PRN TID PRN PO hypertension; Start 01/28/18 at 14:45 Oxycodone/ Acetaminophen (Percocet 10/325) 1 tab PRN Q4HRS PRN PO pain SEVERE Last administered on 02/10/18at 17:24; Start 01/29/18 at 07:45 Promethazine HCl (Phenergan Supp) 12.5 mg 1X ONCE NV ; Start 01/29/18 at 12:15 ; Stop 01/29/18 at 12:36; Status DC Promethazine HCl (Phenergan Im) 12.5 mg 1X ONCE IM ; Start 01/29/18 at 12:45; Stop 01/29/18 at 12:46; Status DC Lidocaine/ Epinephrine (LIDOCAINE 1%-EPI 1:100,000 Multi-Dose) 20 ml STK-MED ONCE .ROUTE ; Start 01/29/18 at 12:45; Stop 01/29/18 at 12:47; Status DC Heparin Sodium (Porcine) (Hep Lock Adult) 500 unit STK-MED ONCE IV ; Start 01/29 at 12:45; Stop 01/29/18 at 12:47; Status DC Morphine Sulfate (Morphine Sulfate) 10 mg STK-MED ONCE .ROUTE ; Start 01/29/18 at 13:23; Stop 01/29/18 at 13:25; Status DC Midazolam HCl (Versed) 2 mg STK-MED ONCE .ROUTE ; Start 01/29/18 at 13:23; Stop 01/29/18 at 13:25; Status DC Morphine Sulfate (Morphine Sulfate) 1 mg PRN Q10MIN PRN IV SEVERE PAIN Last administered on 02/01/18at 15:46; Start 02/01/18 at 07:00; Stop 02/02/18 at 06:59 ; Status DC Ringer's Solution 1,000 ml @ 30 mls/hr Q24H IV ; Start 02/01/18 at 07:00; Stop 02/01/18 at 18:59; Status DC Lidocaine HCl (Xylocaine-Mpf 1% 2ml Vial) 2 ml PRN 1X PRN ID PRIOR TO IV START ; Start 02/01/18 at 07:00; Stop 02/02/18 at 06:59; Status DC Hydromorphone HCl (Dilaudid) 0.5 mg PRN Q10MIN PRN IV SEV PAIN, Second choice Last administered on 02/01/18at 16:08; Start 02/01/18 at 07:00; Stop 02/02/18 at 06:59; Status DC Prochlorperazine Edisylate (Compazine) 5 mg PACU PRN PRN IV NAUSEA, MRX1; Start 02/01/18 at 07:00; Stop 02/02/18 at 06:59; Status DC Lidocaine/ Epinephrine (LIDOCAINE 1%-EPI 1:100,000 Multi-Dose) 8 ml 1X ONCE IJ Last administered on 01/29/18at 14:01; Start 01/29/18 at 14:00; Stop 01/29/18 at 14:17; Status DC Heparin Sodium (Porcine) (Hep Lock Adult) 500 unit 1X ONCE IV Last administered on 01/29/18at 14:04; Start 01/29/18 at 14:00; Stop 01/29/18 at 14:17 ; Status DC Morphine Sulfate (Morphine Sulfate) 5 mg 1X ONCE IV Last administered on at 14:01; Start 01/29/18 at 14:00; Stop 01/29/18 at 14:17; Status DC Ondansetron HCl (Zofran) 4 mg PRN Q6HRS PRN IV NAUSEA/VOMITING 1ST CHOICE Last administered on 02/13/18at 06:09; Start 01/29/18 at 14:45 Vancomycin HCl 500 mg/Sodium Chloride 100 ml @ 100 mls/hr 1X ONCE IV Last administered on 01/29/18at 21:04; Start 01/29/18 at 18:00; Stop 01/29/18 at 18:59 ; Status DC Sodium Chloride 1,000 ml @ 1,000 mls/hr Q1H PRN IV hypotension; Start 01/30/18 at 13:09; Stop 01/30/18 at 19:08; Status DC Sodium Chloride (Normal Saline Flush) 10 ml 1X PRN PRN IV AP catheter pack; Start 01/30/18 at 13:15; Stop 01/31/18 at 13:14; Status DC Sodium Chloride (Normal Saline Flush) 10 ml 1X PRN PRN IV PRESENTATION TEAM MEMBER catheter pack; Start 01/30/18 at 13:15; Stop 01/31/18 at 13:14; Status DC Sodium Chloride 1,000 ml @ 400 mls/hr Q2H30M PRN IV PATENCY; Start 01/30/18 at 13:09; Stop 01/31/18 at 01:08; Status DC Info (PHARMACY MONITORING -- do not chart) 1 each PRN DAILY PRN MC SEE COMMENTS ; Start 01/30/18 at 13:15; Stop 01/30/18 at 13:17; Status DC Info (PHARMACY MONITORING -- do not chart) 1 each PRN DAILY PRN MC SEE COMMENTS ; Start 01/30/18 at 13:15; Stop 02/04/18 at 07:27; Status DC Lidocaine HCl (Lidocaine 1% 50ml Vial) 50 ml 1X ONCE INJ ; Start 01/30/18 at 15 :45; Stop 01/30/18 at 15:46; Status DC Vancomycin HCl 500 mg/Sodium Chloride 100 ml @ 100 mls/hr ONCE ONCE IV Last administered on 01/30/18at 20:49; Start 01/30/18 at 18:00; Stop 01/30/18 at 18:59 ; Status DC Cefazolin Sodium 1 gm/Sodium Chloride 500 ml @ 500 mls/hr 1X ONCE IRR ; Start 02/01/18 at 06:00; Stop 02/01/18 at 06:59; Status DC Lidocaine HCl (Xylocaine-Mpf 2% Vial) 2 ml STK-MED ONCE .ROUTE ; Start 01/28/18 at 12:00; Stop 02/01/18 at 08:30; Status DC Darbepoetin Mauricio (Aranesp) 60 mcg [id number] SQ Last administered on 02/08/18at 20:41; Start 02/01/18 at 21:00 Cellulose (Surgicel Fibrillar 1x2) 1 each STK-MED ONCE .ROUTE ; Start 02/01/18 at 12:05; Stop 02/01/18 at 13:06; Status DC Lidocaine HCl (Xylocaine 1% Pf 30ml Vial) 30 ml 1X ONCE INJ ; Start 02/01/18 at 13:15; Stop 02/01/18 at 13:18; Status DC Sodium Chloride 1,000 ml @ 75 mls/hr [id number] IV Last administered on at 00:15; Start 02/01/18 at 13:45; Stop 02/02/18 at 16:43; Status DC Morphine Sulfate (Morphine Sulfate) 10 mg STK-MED ONCE .ROUTE ; Start 02/01/18 at 14:24; Stop 02/01/18 at 14:25; Status DC Midazolam HCl (Versed) 2 mg STK-MED ONCE .ROUTE ; Start 02/01/18 at 14:24; Stop 02/01/18 at 14:25; Status DC Midazolam HCl (Versed) 2 mg STK-MED ONCE .ROUTE ; Start 02/01/18 at 14:25; Stop 02/01/18 at 14:26; Status DC Propofol 20 ml @ As Directed STK-MED ONCE IV ; Start 02/01/18 at 14:25; Stop at 14:26; Status DC Dexamethasone Sodium Phosphate (Decadron) 20 mg STK-MED ONCE .ROUTE ; Start 02/01/18 at 14:25; Stop 02/01/18 at 14:26; Status DC Ondansetron HCl (Zofran) 4 mg STK-MED ONCE .ROUTE ; Start 02/01/18 at 14:25; Stop 02/01/18 at 14:26; Status DC Bacitracin (Bacitracin) 50,000 unit STK-MED ONCE IRR Last administered on at 14:55; Start 02/01/18 at 13:32; Stop 02/01/18 at 14:32; Status DC Vancomycin HCl 500 mg/Sodium Chloride 100 ml @ 100 mls/hr [id number] IV Last administered on 02/02/18at 16:15; Start 02/02/18 at 16:00; Stop 02/04/18 at 12: 02; Status DC Sodium Chloride 1,000 ml @ 1,000 mls/hr Q1H PRN IV hypotension; Start 02/02/18 at 09:39; Stop 02/02/18 at 15:38; Status DC Albumin Human 200 ml @ 200 mls/hr 1X PRN PRN IV Hypotension; Start 02/02/18 at 09:45; Stop 02/02/18 at 15:44; Status DC Sodium Chloride 1,000 ml @ 400 mls/hr Q2H30M PRN IV PATENCY; Start 02/02/18 at 09:39; Stop 02/02/18 at 21:38; Status DC Info (PHARMACY MONITORING -- do not chart) 1 each PRN DAILY PRN MC SEE COMMENTS ; Start 02/02/18 at 09:45; Stop 02/04/18 at 07:28; Status DC Info (PHARMACY MONITORING -- do not chart) 1 each PRN DAILY PRN MC SEE COMMENTS ; Start 02/02/18 at 09:45; Status UNV Prochlorperazine Edisylate (Compazine) 10 mg PRN Q6HRS PRN IV NAUSEA/VOMITING 2ND CHOICE Last administered on 02/14/18at 12:21; Start 02/02/18 at 11:30 Vancomycin HCl (Vanco Per Pharmacy) 1 each PRN DAILY PRN MC SEE COMMENTS Last administered on 02/02/18at 13:57; Start 02/02/18 at 14:00; Stop 02/04/18 at 12: 02; Status DC Famotidine (Pepcid Vial) 20 mg DAILY IVP Last administered on 02/08/18at 09:00 ; Start 02/03/18 at 10:00; Stop 02/08/18 at 11:45; Status DC Alteplase, Recombinant (Cathflo) 2 mg 1X ONCE INT CAT Last administered on 03/14at 02:56; Start 02/04/18 at 03:00; Stop 02/04/18 at 03:01; Status DC Sodium Chloride 1,000 ml @ 1,000 mls/hr Q1H PRN IV hypotension; Start at 07:15; Stop 02/04/18 at 13:14; Status DC Albumin Human 200 ml @ 200 mls/hr 1X PRN PRN IV Hypotension Last administered on 02/04/18at 11:26; Start 02/04/18 at 07:15; Stop 02/04/18 at 13:14; Status DC Acetaminophen (Tylenol) 500 mg 1X PRN PRN PO MILD PAIN / TEMP; Start 02/04/18 at 07:15; Stop 02/05/18 at 07:14; Status DC Diphenhydramine HCl (Benadryl) 25 mg 1X PRN PRN IV ITCHING; Start 02/04/18 at 07:15; Stop 02/05/18 at 07:14; Status DC Diphenhydramine HCl (Benadryl) 25 mg 1X PRN PRN IV ITCHING; Start 02/04/18 at 07:15; Stop 02/05/18 at 07:14; Status DC Sodium Chloride 1,000 ml @ 400 mls/hr Q2H30M PRN IV PATENCY; Start 02/04/18 at 07:15; Stop 02/04/18 at 19:14; Status DC Info (PHARMACY MONITORING -- do not chart) 1 each PRN DAILY PRN MC SEE COMMENTS ; Start 02/04/18 at 07:15; Status Cancel Lidocaine HCl (Xylocaine-Mpf 2% Vial) 2 ml STK-MED ONCE .ROUTE ; Start at 09:43; Stop 02/04/18 at 09:44; Status DC Docusate Sodium (Colace) 100 mg PRN DAILY PRN PO CONSTIPATION Last administered on 02/07/18at 22:13; Start 02/04/18 at 10:30 Ceftriaxone Sodium 2 gm/ Dextrose 100 ml @ 200 mls/hr Q24H IV Last administered on 02/04/18at 14:24; Start 02/04/18 at 13:00; Stop 02/05/18 at 11 :49; Status DC Morphine Sulfate (Morphine Sulfate) 1 mg PRN Q10MIN PRN IV SEVERE PAIN; Start 02/05/18 at 07:00; Stop 02/06/18 at 06:59; Status DC Ringer's Solution 1,000 ml @ 30 mls/hr Q24H IV ; Start 02/05/18 at 07:00; Stop 02/05/18 at 18:59; Status DC Lidocaine HCl (Xylocaine-Mpf 1% 2ml Vial) 2 ml PRN 1X PRN ID IV START; Start 02/05/18 at 07:00; Stop 02/06/18 at 06:59; Status DC Hydromorphone HCl (Dilaudid) 0.5 mg PRN Q10MIN PRN IV SEV PAIN, Second choice; Start 02/05/18 at 07:00; Stop 02/06/18 at 06:59; Status DC Prochlorperazine Edisylate (Compazine) 5 mg PACU PRN PRN IV NAUSEA, MRX1; Start 02/05/18 at 07:00; Stop 02/06/18 at 06:59; Status DC Lidocaine HCl (Xylocaine-Mpf 2% Vial) 2 ml STK-MED ONCE .ROUTE ; Start at 10:00; Stop 02/05/18 at 08:19; Status DC Sodium Chloride 1,000 ml @ 75 mls/hr [id number] IV Last administered on at 07:00; Start 02/05/18 at 10:30; Stop 02/08/18 at 15:20; Status DC Cefepime HCl 1 gm/ Dextrose 50 ml @ 100 mls/hr DAILY IV ; Start 02/06/18 at 09 :00; Status UNV Vancomycin HCl (Vanco Per Pharmacy) 1 each PRN DAILY PRN MC SEE COMMENTS Last administered on 02/08/18at 14:35; Start 02/05/18 at 12:00; Stop 02/09/18 at 09 :50; Status DC Cefepime HCl (Maxipime) 1 gm Q24H IVP Last administered on 02/08/18at 14:49; Start 02/05/18 at 12:00; Stop 02/09/18 at 09:35; Status DC Propofol 20 ml @ As Directed STK-MED ONCE IV ; Start 02/05/18 at 12:08; Stop 02/05/18 at 12:09; Status DC Lidocaine HCl (Xylocaine-Mpf 2% Vial) 2 ml STK-MED ONCE .ROUTE ; Start at 12:08; Stop 02/05/18 at 12:09; Status DC Vancomycin HCl 1.5 gm/Sodium Chloride 500 ml @ 250 mls/hr 1X ONCE IV Last administered on 02/05/18at 14:05; Start 02/05/18 at 14:00; Stop 02/05/18 at 15 :59; Status DC Vancomycin HCl (Vancomycin Random Level) 1 each 1X ONCE MC Last administered on 02/06/18at 05:00; Start 02/06/18 at 05:00; Stop 02/06/18 at 05:01; Status DC Sodium Chloride 1,000 ml @ 1,000 mls/hr Q1H PRN IV hypotension; Start at 08:12; Stop 02/06/18 at 14:11; Status DC Sodium Chloride 1,000 ml @ 400 mls/hr Q2H30M PRN IV PATENCY; Start 02/06/18 at 08:12; Stop 02/06/18 at 20:11; Status DC Info (PHARMACY MONITORING -- do not chart) 1 each PRN DAILY PRN MC SEE COMMENTS ; Start 02/06/18 at 08:15; Status UNV Info (PHARMACY MONITORING -- do not chart) 1 each PRN DAILY PRN MC SEE COMMENTS ; Start 02/06/18 at 08:15; Status UNV Lidocaine HCl (Xylocaine-Mpf 1% 2ml Vial) 2 ml 1X ONCE ID Last administered on 02/06/18at 08:30; Start 02/06/18 at 08:30; Stop 02/06/18 at 08:31; Status DC Lidocaine HCl (Xylocaine-Mpf 2% Vial) 2 ml STK-MED ONCE .ROUTE ; Start at 08:32; Stop 02/06/18 at 08:33; Status DC Diphenhydramine HCl (Benadryl) 50 mg 1X ONCE IVP Last administered on at 09:10; Start 02/06/18 at 09:00; Stop 02/06/18 at 09:02; Status DC Vancomycin HCl (Vancomycin Random Level) 1 each 1X ONCE MC Last administered on 02/08/18at 05:00; Start 02/08/18 at 05:00; Stop 02/08/18 at 05:01; Status DC Lidocaine HCl (Xylocaine-Mpf 2% Vial) 2 ml STK-MED ONCE .ROUTE ; Start at 09:00; Stop 02/08/18 at 07:54; Status DC Polyethylene Glycol (miraLAX PACKET) 17 gm DAILY PO Last administered on at 14:16; Start 02/08/18 at 12:30 Famotidine (Pepcid) 20 mg QHS PO Last administered on 02/13/18at 21:54; Start 02/08/18 at 21:00 Vancomycin HCl 500 mg/Sodium Chloride 100 ml @ 100 mls/hr QTUTHSA IV ; Start 02/09/18 at 16:00; Stop 02/09/18 at 16:00; Status DC Sodium Chloride 1,000 ml @ 1,000 mls/hr Q1H PRN IV hypotension; Start at 08:21; Stop 02/09/18 at 14:20; Status DC Sodium Chloride 1,000 ml @ 400 mls/hr Q2H30M PRN IV PATENCY; Start 02/09/18 at 08:21; Stop 02/09/18 at 20:20; Status DC Info (PHARMACY MONITORING -- do not chart) 1 each PRN DAILY PRN MC SEE COMMENTS ; Start 02/09/18 at 08:30; Status UNV Info (PHARMACY MONITORING -- do not chart) 1 each PRN DAILY PRN MC SEE COMMENTS ; Start 02/09/18 at 08:30; Status Cancel Diphenhydramine HCl (Benadryl) 50 mg 1X ONCE IVP Last administered on at 09:06; Start 02/09/18 at 08:30; Stop 02/09/18 at 08:31; Status DC Lidocaine HCl (Xylocaine-Mpf 2% Vial) 2 ml STK-MED ONCE .ROUTE ; Start at 08:40; Stop 02/09/18 at 08:41; Status DC Linezolid/Dextrose 300 ml @ 300 mls/hr Q12HR IV Last administered on at 09:00; Start 02/09/18 at 10:00 Gentamicin Sulfate 1 each PRN DAILY PRN MC SEE COMMENTS Last administered on at 12:53; Start 02/09/18 at 09:30 Metronidazole 100 ml @ 100 mls/hr Q8HRS IV Last administered on 02/14/18at 06: 08; Start 02/09/18 at 14:00 Gentamicin Sulfate 140 mg/ Dextrose 103.5 ml @ 207 mls/hr 1X ONCE IV Last administered on 02/09/18at 12:26; Start 02/09/18 at 12:00; Stop 02/09/18 at 12 :29; Status DC Lubiprostone (Amitiza) 8 mcg BIDWMEALS PO Last administered on 02/13/18at 18:38 ; Start 02/09/18 at 17:00 Gentamicin Sulfate 1 each 1X ONCE MC Last administered on 02/11/18at 06:00; Start 02/11/18 at 06:00; Stop 02/11/18 at 06:01; Status DC Hydromorphone HCl (Dilaudid) 2 mg 1X ONCE IV ; Start 02/10/18 at 10:30; Stop 02/10/18 at 10:31; Status DC Lidocaine HCl (Xylocaine-Mpf 2% Vial) 2 ml STK-MED ONCE .ROUTE ; Start at 09:00; Stop 02/10/18 at 13:19; Status DC Alteplase, Recombinant (Cathflo) 2 mg 1X ONCE INT CAT Last administered on at 22:18; Start 02/10/18 at 21:30; Stop 02/10/18 at 21:31; Status DC Silver Sulfadiazine (Silvadene) 25 susanna STK-MED ONCE TP ; Start 02/11/18 at 05: 56; Stop 02/11/18 at 06:57; Status DC Lidocaine HCl (Xylocaine 1% Pf 30ml Vial) 30 ml STK-MED ONCE .ROUTE ; Start at 05:57; Stop 02/11/18 at 06:58; Status DC Ondansetron HCl (Zofran) 4 mg PRN Q6HRS PRN IV NAUSEA/VOMITING; Start at 07:15; Stop 02/11/18 at 12:42; Status DC Fentanyl Citrate (Fentanyl 2ml Vial) 25 mcg PRN Q5MIN PRN IV MILD PAIN; Start 02/11/18 at 07:15; Stop 02/11/18 at 12:39; Status DC Fentanyl Citrate (Fentanyl 2ml Vial) 50 mcg PRN Q5MIN PRN IV MODERATE TO SEVERE PAIN; Start 02/11/18 at 07:15; Stop 02/11/18 at 12:40; Status DC Morphine Sulfate (Morphine Sulfate) 1 mg PRN Q10MIN PRN IV SEVERE PAIN; Start 02/11/18 at 07:15; Stop 02/11/18 at 12:41; Status DC Ringer's Solution 1,000 ml @ 30 mls/hr Q24H IV ; Start 02/11/18 at 07:15; Stop 02/11/18 at 19:14; Status Cancel Lidocaine HCl (Xylocaine-Mpf 1% 2ml Vial) 2 ml PRN 1X PRN ID PRIOR TO IV START ; Start 02/11/18 at 07:15; Stop 02/11/18 at 12:40; Status DC Hydromorphone HCl (Dilaudid) 0.5 mg PRN Q10MIN PRN IV SEV PAIN, Second choice; Start 02/11/18 at 07:15; Stop 02/11/18 at 12:40; Status DC Prochlorperazine Edisylate (Compazine) 5 mg PACU PRN PRN IV NAUSEA, MRX1; Start 02/11/18 at 07:15; Stop 02/11/18 at 12:42; Status DC Sodium Chloride 1,000 ml @ 75 mls/hr [id number] IV Last administered on at 00:23; Start 02/11/18 at 07:30; Stop 02/13/18 at 09:35; Status DC Propofol 20 ml @ As Directed STK-MED ONCE IV ; Start 02/11/18 at 07:20; Stop 02/11/18 at 07:21; Status DC Dexamethasone Sodium Phosphate (Decadron) 20 mg STK-MED ONCE .ROUTE ; Start at 07:20; Stop 02/11/18 at 07:21; Status DC Famotidine (Pepcid Vial) 20 mg STK-MED ONCE .ROUTE ; Start 02/11/18 at 07:20; Stop 02/11/18 at 07:21; Status DC Lidocaine HCl (Lidocaine Pf 2% Vial) 5 ml STK-MED ONCE .ROUTE ; Start 02/11/18 at 07:20; Stop 02/11/18 at 07:21; Status DC Ondansetron HCl (Zofran) 4 mg STK-MED ONCE .ROUTE ; Start 02/11/18 at 07:20; Stop 02/11/18 at 07:21; Status DC Fentanyl Citrate (Fentanyl 2ml Vial) 100 mcg STK-MED ONCE .ROUTE ; Start at 07:20; Stop 02/11/18 at 07:21; Status DC Midazolam HCl (Versed) 2 mg STK-MED ONCE .ROUTE ; Start 02/11/18 at 07:21; Stop 02/11/18 at 07:22; Status DC Ephedrine Sulfate (ePHEDrine PF IN SALINE SYRINGE) 50 mg STK-MED ONCE IV ; Start 02/11/18 at 08:22; Stop 02/11/18 at 08:23; Status DC Desflurane (Suprane) 30 ml STK-MED ONCE IH ; Start 02/11/18 at 08:41; Stop at 08:42; Status DC Sodium Chloride 1,000 ml @ 1,000 mls/hr Q1H PRN IV hypotension; Start at 09:57; Stop 02/11/18 at 15:56; Status DC Albumin Human 200 ml @ 200 mls/hr 1X PRN PRN IV Hypotension; Start 02/11/18 at 10:00; Stop 02/11/18 at 15:59; Status DC Sodium Chloride 1,000 ml @ 400 mls/hr Q2H30M PRN IV PATENCY; Start 02/11/18 at 09:57; Stop 02/11/18 at 21:56; Status DC Info (PHARMACY MONITORING -- do not chart) 1 each PRN DAILY PRN MC SEE COMMENTS ; Start 02/11/18 at 10:00; Status UNV Info (PHARMACY MONITORING -- do not chart) 1 each PRN DAILY PRN MC SEE COMMENTS ; Start 02/11/18 at 10:00; Status UNV Lidocaine HCl (Xylocaine-Mpf 1% 2ml Vial) 2 ml 1X ONCE INJ ; Start 02/11/18 at 10:00; Stop 02/11/18 at 10:13; Status DC Gentamicin Sulfate 100 mg/ Dextrose 52.5 ml @ 105 mls/hr QTUTHSA IV Last administered on 02/13/18at 20:42; Start 02/11/18 at 16:00 Gentamicin Sulfate 1 each 1X ONCE MC ; Start 02/13/18 at 05:00; Stop at 05:00; Status DC Lidocaine HCl (Xylocaine-Mpf 2% Vial) 2 ml STK-MED ONCE .ROUTE ; Start at 13:22; Stop 02/11/18 at 13:23; Status DC Lidocaine HCl (Xylocaine-Mpf 2% Vial) 2 ml STK-MED ONCE .ROUTE ; Start at 14:00; Stop 02/12/18 at 08:48; Status DC Pantoprazole Sodium (Protonix) 40 mg DAILYAC PO Last administered on at 09:19; Start 02/12/18 at 16:00 Sodium Chloride 1,000 ml @ 1,000 mls/hr Q1H PRN IV hypotension; Start at 08:36; Stop 02/13/18 at 14:35; Status DC Info (PHARMACY MONITORING -- do not chart) 1 each PRN DAILY PRN MC SEE COMMENTS ; Start 02/13/18 at 08:45; Status UNV Info (PHARMACY MONITORING -- do not chart) 1 each PRN DAILY PRN MC SEE COMMENTS ; Start 02/13/18 at 08:45 Insulin Glargine (Lantus) 15 units QHS SQ ; Start 02/13/18 at 21:00 Alteplase, Recombinant (Cathflo) 2 mg 1X ONCE INT CAT Last administered on at 19:00; Start 02/13/18 at 19:00; Stop 02/13/18 at 19:01; Status DC Active Scripts Active Percocet 10-325 Mg Tablet (Oxycodone/Acetaminophen) 1 Each Tablet 1 Tab PO Q4HRS Brilinta (Ticagrelor) 90 Mg Tablet 90 Mg PO BID 30 Days Morphine Sulfate Er (Morphine Sulfate) 15 Mg Tablet.er 15 Mg PO BID Reported Brilinta (Ticagrelor) 90 Mg Tablet 90 Mg PO BID Lidocaine 1 Each Adh..patch 1 Each TP PRN DAILY PRN Calcitriol 0.25 Mcg Capsule 1 Cap PO DAILY Tegretol (Carbamazepine) 200 Mg Tablet 1 Tab PO BID Tramadol Hcl 50 Mg Tablet 50 Mg PO Q4HRS PRN Lantus Solostar (Insulin Glargine,Hum.rec.anlog) 100 Unit/1 Ml Insuln.pen 22 Unit SQ QHS Diflucan (Fluconazole) 100 Mg Tablet 100 Mg PO PRN Carvedilol 3.125 Mg Tablet 12.5 Mg PO BID Erythromycin (Erythromycin Base) 250 Mg Capsule.dr 250 Mg PO BID Cardizem Cd (Diltiazem Hcl) 180 Mg Cap.er.24h 120 Mg PO DAILY Amiodarone Hcl 200 Mg Tablet 1 Tab PO DAILY Nystatin 15 Gm Powder 1 Susanna TP PRN BID PRN Proventil Hfa Inhaler (Albuterol Sulfate) 6.7 Gm Hfa.aer.ad 2 Puff IH BID PRN Zofran (Ondansetron Hcl) 4 Mg Tablet 4 Mg PO Q6-8HRS PRN Nephro-Shabbir Tablet (Folic Acid/Vitamin B Comp W-C) 0.8 Mg Tablet 1 Tab PO DAILY Tricor (Fenofibrate Nanocrystallized) 145 Mg Tablet 1 Tab PO HS Lipitor (Atorvastatin Calcium) 80 Mg Tablet 80 Mg PO HS Niacin 500 Mg Tablet 500 Mg PO HS Novolog (Insulin Aspart) 100 Unit/1 Ml Cartridge 0 SQ TIDAC sliding scale Aspirin 325 Mg Tablet 325 Mg PO DAILY Furosemide 80 Mg Tablet 80 Mg PO BID Docusate Sodium 100 Mg Capsule 1 Cap PO PRN PRN Nitrostat (Nitroglycerin) 0.4 Mg Tab.subl 0.4 Mg SL PRN Q5MIN PRN Take as needed for chest pain Vitals/I & O Vital Sign - Last 24 Hours 02/13/18 02/13/18 02/13/18 02/13/18 13:37 14:16 14:17 14:18 Temp 98.1 98.1 Pulse 75 75 75 Resp 16 B/P (MAP) 137/59 (85) 137/59 137/59 Pulse Ox 100 100 O2 Delivery Nasal Cannula Room Air O2 Flow Rate 2.0 2.0 02/13/18 02/13/18 02/13/18 02/13/18 14:18 14:19 14:46 15:00 Temp 98.4 98.4 Pulse 75 74 Resp 16 B/P (MAP) 137/59 136/55 (82) Pulse Ox 100 96 96 O2 Delivery Room Air Room Air Nasal Cannula O2 Flow Rate 2.0 2.0 2.0 02/13/18 02/13/18 02/13/18 02/13/18 16:30 18:38 19:00 20:15 Temp 98.6 98.6 Pulse 74 77 Resp 17 B/P (MAP) 136/55 132/56 (81) Pulse Ox 96 97 O2 Delivery Room Air Nasal Cannula Nasal Cannula O2 Flow Rate 2.0 2.0 2.0 02/13/18 02/14/18 02/14/18 02/14/18 22:47 03:00 07:00 09:18 Temp 98.0 97.8 98.0 97.8 Pulse 83 72 73 Resp 18 17 20 B/P (MAP) 102/45 (64) 103/49 (67) 147/62 (90) Pulse Ox 93 97 98 98 O2 Delivery Nasal Cannula Nasal Cannula Nasal Cannula Nasal Cannula O2 Flow Rate 2.0 2.0 2.0 2.0 02/14/18 02/14/18 02/14/18 02/14/18 09:19 09:21 09:21 09:22 Pulse 73 73 B/P (MAP) 147/62 147/62 Pulse Ox 98 98 O2 Delivery Nasal Cannula Nasal Cannula O2 Flow Rate 2.0 2.0 02/14/18 02/14/18 02/14/18 09:22 10:43 12:25 Temp 97.8 97.8 Pulse 73 72 Resp 20 B/P (MAP) 147/62 120/53 (75) Pulse Ox 98 98 O2 Delivery Nasal Cannula Nasal Cannula O2 Flow Rate 2.0 2.0 Intake and Output 02/13/18 02/13/18 02/14/18 15:00 23:00 07:00 Intake Total 1200 ml 200 ml Output Total 500 ml Balance 700 ml 200 ml QUIN BARRY MD Feb 14, 2018 13:06
[2018-02-14] MEDS ORDERED: DEXTROSE 50% 25 GM / 50ML DISP.SYRIN. IV PRN (13:15)
--- NOTE | 2018-02-14 14:45 | PDOC ---
Infectious Disease Note Subjective: Subjective Persistent diarrhea with incontinence. Denies N/V at the moment Denies cramps/bloating Denies dizziness/tinnitus No fever last 24 hours Right groin sore No Rash/SOA ROS: ROS Negative except for above. Vital Signs: Vital Signs Vital Signs Date Time Temp Pulse Resp B/P (MAP) Pulse Ox O2 Delivery O2 Flow Rate FiO2 02/14/18 12:55 Room Air 02/14/18 12:25 98 2.0 02/14/18 10:43 97.8 72 20 120/53 (75) 97.8 Physical Exam: PHYSICAL EXAM GENERAL: Propped up in bed, alert, dialyzing HENT: OC/Op- dry LUNGS: Clear. HEART: S1, S2 regular. ABDOMEN: Soft, NT, ND EXTREMITIES: Left BKA. RLE less swollen and red; + wrinkles. wound vac in place Heel without wound NEUROLOGIC: Alert, responds appropriately SKIN: without rash Tunnelled [facility] (01/29) clean Medications: Inpatient Meds: Current Medications Medications (Trade) Dose Ordered Sig/Martin Start Time Stop Time Status Last Admin Dose Admin Acetaminophen (Tylenol) 500 mg 1X PRN PRN 02/04/18 07:15 02/05/18 07:14 DC Albumin Human 200 ml @ 200 mls/hr 1X PRN PRN 02/11/18 10:00 02/11/18 15:59 DC Albuterol Sulfate (Ventolin Neb Soln) 2.5 mg PRN BID PRN 01/27/18 12:30 01/27/18 21:59 2.5 MG Alteplase, Recombinant (Cathflo) 2 mg 1X ONCE 02/13/18 19:00 02/13/18 19:01 DC 02/13/18 19:00 2 MG Amiodarone HCl (Cordarone) 200 mg DAILY 01/27/18 12:30 02/14/18 09:21 200 MG Aspirin (Anthony Aspirin) 325 mg DAILY 01/27/18 12:30 01/28/18 14:26 DC 01/28/18 09:13 325 MG Aspirin (Ecotrin) 81 mg DAILYWBKFT 01/29/18 08:00 02/14/18 09:21 81 MG Atorvastatin Calcium (Lipitor) 80 mg QHS 01/27/18 21:00 10/20/18 21:53 80 MG Bacitracin (Bacitracin) 50,000 unit STK-MED ONCE 02/01/18 13:32 02/01/18 14:32 DC 02/01/18 14:55 50,000 UNIT Bacitracin [id number] unit/Sodium Chloride 3,000 ml @ 0 mls/hr 1X ONCE 01/27/18 13:15 01/27/18 13:16 Cancel Calcitriol (Rocaltrol) 0.25 mcg DAILY 01/27/18 12:30 02/14/18 09:23 0.25 MCG Carbamazepine (TEGretol) 200 mg BID 01/27/18 12:30 02/14/18 09:20 200 MG Carvedilol (Coreg) 12.5 mg BIDWMEALS 01/27/18 12:30 02/14/18 09:21 12.5 MG Cefazolin Sodium 1 gm/Sodium Chloride 500 ml @ 500 mls/hr 1X ONCE 02/01/18 06:00 02/01/18 06:59 DC Cefepime HCl (Maxipime) 1 gm Q24H 02/05/18 12:00 02/09/18 09:35 DC 02/08/18 14:49 1 GM Cefepime HCl 1 gm/ Dextrose 50 ml @ 100 mls/hr DAILY 02/06/18 09:00 UNV Ceftriaxone Sodium 2 gm/ Dextrose 100 ml @ 200 mls/hr Q24H 02/04/18 13:00 02/05/18 11:49 DC 02/04/18 14:24 200 MLS/HR Cellulose (Surgicel Fibrillar 1x2) 1 each STK-MED ONCE 02/01/18 12:05 02/01/18 13:06 DC Clopidogrel Bisulfate (Plavix) 75 mg DAILYWBKFT 01/28/18 08:00 01/28/18 14:28 DC 01/28/18 09:13 75 MG Darbepoetin Mauricio (Aranesp) 60 mcg WEEKLYHS 02/01/18 21:00 02/08/18 20:41 60 MCG Desflurane (Suprane) 30 ml STK-MED ONCE 02/11/18 08:41 02/11/18 08:42 DC Dexamethasone Sodium Phosphate (Decadron) 20 mg STK-MED ONCE 02/11/18 07:20 02/11/18 07:21 DC Dextrose (Dextrose 50%-Water Syringe) 12.5 gm PRN Q15MIN PRN 02/14/18 13:15 Diltiazem HCl (Cardizem 24hr Cd) 120 mg DAILY 01/27/18 12:30 02/14/18 09:22 120 MG Diphenhydramine HCl (Benadryl) 50 mg 1X ONCE 02/09/18 08:30 02/09/18 08:31 DC 02/09/18 09:06 50 MG Docusate Sodium (Colace) 100 mg PRN DAILY PRN 02/04/18 10:30 02/07/18 22:13 100 MG Ephedrine Sulfate (ePHEDrine PF IN SALINE SYRINGE) 50 mg STK-MED ONCE 02/11/18 08:22 02/11/18 08:23 DC Erythromycin (E-Mycin) 250 mg BID 01/27/18 21:00 02/14/18 09:20 250 MG Famotidine (Pepcid Vial) 20 mg STK-MED ONCE 02/11/18 07:20 02/11/18 07:21 DC Famotidine (Pepcid) 20 mg QHS 02/08/18 21:00 02/13/18 21:54 20 MG Fenofibrate (Lofibra) 134 mg QHS 01/27/18 21:00 02/13/18 21:54 134 MG Fentanyl Citrate (Fentanyl 2ml Vial) 100 mcg STK-MED ONCE 02/11/18 07:20 02/11/18 07:21 DC Furosemide (Lasix) 80 mg BID92 01/27/18 12:30 02/14/18 09:22 80 MG Gentamicin Sulfate 100 mg/ Dextrose 52.5 ml @ 105 mls/hr QTUTHSA 02/11/18 16:00 02/13/18 20:42 105 MLS/HR Gentamicin Sulfate 140 mg/ Dextrose 103.5 ml @ 207 mls/hr 1X ONCE 02/09/18 12:00 02/09/18 12:29 DC 02/09/18 12:26 207 MLS/HR Gentamicin Sulfate 235 mg/ Dextrose 105.875 ml @ 105.875 mls/hr 1X ONCE 01/27/18 16:00 01/27/18 16:59 DC 01/27/18 19:56 105.875 MLS/HR Gentamicin Sulfate 1 each 1X ONCE 02/13/18 05:00 02/13/18 05:00 DC Heparin Sodium (Porcine) (Hep Lock Adult) 500 unit 1X ONCE 01/29/18 14:00 01/29/18 14:17 DC 01/29/18 14:04 500 UNIT Hydralazine HCl (Apresoline) 10 mg PRN TID PRN 01/28/18 14:45 Hydromorphone HCl (Dilaudid) 0.5 mg PRN Q10MIN PRN 02/11/18 07:15 02/11/18 12:40 DC Influenza Virus Vaccine (Afluria Trivalent [id number] Syringe) 0.5 ml ONCE ONCE 01/27/18 09:00 01/27/18 09:01 DC 01/27/18 09:00 0.5 ML Info (PHARMACY MONITORING -- do not chart) 1 each PRN DAILY PRN 02/13/18 08:45 Insulin Glargine (Lantus) 15 units QHS 02/13/18 21:00 02/14/18 13:04 DC Insulin Human Lispro (HumaLOG) 0-9 UNITS TIDWMEALS 02/14/18 14:00 Lactobacillus Rhamnosus (Culturelle) 1 cap BID 01/27/18 21:00 02/14/18 09:21 1 CAP Lidocaine (Lidoderm) 1 patch PRN DAILY PRN 01/27/18 09:00 Lidocaine HCl (Lidocaine 1% 50ml Vial) 50 ml 1X ONCE 01/30/18 15:45 01/30/18 15:46 DC Lidocaine HCl (Lidocaine Pf 2% Vial) 5 ml STK-MED ONCE 02/11/18 07:20 02/11/18 07:21 DC Lidocaine HCl (Xylocaine 1% Pf 30ml Vial) 30 ml STK-MED ONCE 02/11/18 05:57 02/11/18 06:58 DC Lidocaine HCl (Xylocaine-Mpf 1% 2ml Vial) 2 ml 1X ONCE 02/11/18 10:00 02/11/18 10:13 DC Lidocaine HCl (Xylocaine-Mpf 2% Vial) 2 ml STK-MED ONCE 02/11/18 14:00 02/12/18 08:48 DC Lidocaine/ Epinephrine (LIDOCAINE 1%-EPI 1:100,000 Multi-Dose) 8 ml 1X ONCE 01/29/18 14:00 01/29/18 14:17 DC 01/29/18 14:01 8 ML Linezolid/Dextrose 300 ml @ 300 mls/hr Q12HR 02/09/18 10:00 02/14/18 09:00 300 MLS/HR Lubiprostone (Amitiza) 8 mcg BIDWMEALS 02/09/18 17:00 02/13/18 18:38 8 MCG Metronidazole 100 ml @ 100 mls/hr Q8HRS 02/09/18 14:00 02/14/18 06:08 100 MLS/HR Midazolam HCl (Versed) 2 mg STK-MED ONCE 02/11/18 07:21 02/11/18 07:22 DC Miscellaneous (Lidoderm Patch Removal) 1 ea QHS 01/27/18 21:00 02/13/18 21:54 1 EA Morphine Sulfate (Morphine Sulfate) 1 mg PRN Q10MIN PRN 02/11/18 07:15 02/11/18 12:41 DC Morphine Sulfate (Ms Contin) 15 mg BID 01/27/18 12:30 02/14/18 09:22 15 MG Niacin (Slo-Niacin) 500 mg QHS 01/27/18 21:00 02/13/18 21:57 500 MG Nitroglycerin (Nitrostat) 0.4 mg PRN Q5MIN PRN 01/27/18 12:00 Non-Formulary Medication (Albuterol Sulfate (Proventil Hfa Inhaler)) 2 puff BID PRN 01/27/18 12:00 UNV Non-Formulary Medication (Fluconazole (Diflucan)) 100 mg PRN 01/27/18 12:00 UNV Nystatin (Nystop) 1 erich PRN BID PRN 01/27/18 12:00 Ondansetron HCl (Zofran Odt) 4 mg PRN Q6HRS PRN 01/27/18 12:15 02/13/18 21:54 4 MG Ondansetron HCl (Zofran) 4 mg STK-MED ONCE 02/11/18 07:20 02/11/18 07:21 DC Oxycodone/ Acetaminophen (Percocet 10/325) 1 tab PRN Q4HRS PRN 01/29/18 07:45 02/10/18 17:24 1 TAB Pantoprazole Sodium (Protonix) 40 mg DAILYAC 02/12/18 16:00 02/14/18 09:19 40 MG Pharmacy Consult (C.diff Med Screen By Rx) 1 each 1X ONCE 01/27/18 01:00 01/27/18 01:01 Cancel Polyethylene Glycol (miraLAX PACKET) 17 gm DAILY 02/08/18 12:30 02/13/18 14:16 17 GM Prochlorperazine Edisylate (Compazine) 5 mg PACU PRN PRN 02/11/18 07:15 02/11/18 12:42 DC Promethazine HCl (Phenergan Im) 12.5 mg 1X ONCE 01/29/18 12:45 01/29/18 12:46 DC Promethazine HCl (Phenergan Supp) 12.5 mg 1X ONCE 01/29/18 12:15 01/29/18 12:36 DC Propofol 20 ml @ As Directed STK-MED ONCE 02/11/18 07:20 02/11/18 07:21 DC Ringer's Solution 1,000 ml @ 30 mls/hr Q24H 02/11/18 07:15 02/11/18 19:14 Cancel Sevoflurane (Ultane) 30 ml STK-MED ONCE 01/27/18 13:11 01/27/18 13:12 DC Silver Sulfadiazine (Silvadene) 25 erich STK-MED ONCE 02/11/18 05:56 02/11/18 06:57 DC Sodium Chloride 1,000 ml @ 1,000 mls/hr Q1H PRN 02/13/18 08:36 02/13/18 14:35 DC Sodium Chloride (Normal Saline Flush) 10 ml 1X PRN PRN 01/30/18 13:15 01/31/18 13:14 DC Ticagrelor (Brilinta) 90 mg BID 01/28/18 21:00 02/14/18 09:21 90 MG Tramadol HCl (Ultram) 50 mg PRN Q4HRS PRN 01/27/18 12:00 02/14/18 09:19 50 MG Vancomycin HCl (Vanco Per Pharmacy) 1 each PRN DAILY PRN 02/05/18 12:00 02/09/18 09:50 DC 02/08/18 14:35 1 EACH Vancomycin HCl (Vancomycin Random Level) 1 each 1X ONCE 02/08/18 05:00 02/08/18 05:01 DC 02/08/18 05:00 1 EACH Vancomycin HCl 1.5 gm/Sodium Chloride 500 ml @ 250 mls/hr 1X ONCE 02/05/18 14:00 02/05/18 15:59 DC 02/05/18 14:05 250 MLS/HR Vancomycin HCl 1.75 gm/Sodium Chloride 500 ml @ 250 mls/hr 1X ONCE 01/26/18 23:00 01/27/18 00:59 DC 01/26/18 23:53 250 MLS/HR Vancomycin HCl 500 mg/Sodium Chloride 100 ml @ 100 mls/hr QTUTHSA 02/09/18 16:00 02/09/18 16:00 DC Vitamin B Complex/ Vitamin C (Melly-Shabbir) 1 tab DAILY 01/27/18 12:30 02/14/18 09:00 1 TAB Labs: Lab Laboratory Tests Test 02/13/18 16:51 02/13/18 21:10 02/14/18 06:10 02/14/18 07:39 Glucose (Fingerstick) 116 mg/dL (70-99) 133 mg/dL (70-99) 90 mg/dL (70-99) White Blood Count 13.6 x10^3/uL (4.0-11.0) Red Blood Count 2.49 x10^6/uL (3.50-5.40) Hemoglobin 7.8 g/dL (12.0-15.5) Hematocrit 23.8 % (36.0-47.0) Mean Corpuscular Volume 96 fL (79-100) Mean Corpuscular Hemoglobin 31 pg (25-35) Mean Corpuscular Hemoglobin Concent 33 g/dL (31-37) Red Cell Distribution Width 17.9 % (11.5-14.5) Platelet Count 302 x10^3/uL (140-400) Neutrophils (%) (Auto) 84 % (31-73) Lymphocytes (%) (Auto) 6 % (24-48) Monocytes (%) (Auto) 9 % (0-9) Eosinophils (%) (Auto) 1 % (0-3) Basophils (%) (Auto) 0 % (0-3) Neutrophils # (Auto) 11.5 x10^3uL (1.8-7.7) Lymphocytes # (Auto) 0.8 x10^3/uL (1.0-4.8) Monocytes # (Auto) 1.2 x10^3/uL (0.0-1.1) Eosinophils # (Auto) 0.1 x10^3/uL (0.0-0.7) Basophils # (Auto) 0.0 x10^3/uL (0.0-0.2) Sodium Level 138 mmol/L (136-145) Potassium Level 3.8 mmol/L (3.5-5.1) Chloride Level 102 mmol/L (98-107) Carbon Dioxide Level 32 mmol/L (21-32) Anion Gap 4 (6-14) Blood Urea Nitrogen 8 mg/dL (7-20) Creatinine 2.8 mg/dL (0.6-1.0) Estimated GFR (Cockcroft-Gault) 17.7 Glucose Level 112 mg/dL (70-99) Calcium Level 8.2 mg/dL (8.5-10.1) Test 02/14/18 11:02 Glucose (Fingerstick) 128 mg/dL (70-99) Micro Micro 01/26/18 Blood Culture - Preliminary, Resulted NO GROWTH AFTER 4 DAYS 01/27 ANAEROBIC RES 1 Preliminary No anaerobes recovered in 24 hours. AEROBIC RES 1 Final Klebsiella pneumoniae MICS are expressed in micrograms per mL Antibiotic RSLT#1 RSLT#2 Amoxicillin/Clavulanic Acid S<=2 Ampicillin R>=32 Cefepime S<=0.12 Ceftriaxone S<=0.25 Cefuroxime S =4 Ciprofloxacin S =1 Ertapenem S<=0.12 Gentamicin S<=1 Imipenem S<=0.25 Levofloxacin S =1 Meropenem S<=0.25 Piperacillin/Tazobactam S<=4 Tetracycline S<=1 Tobramycin S<=1 Trimethoprim/Sulfa S<=20 Objective: Assessment: Right leg surgery site infection s/p excisional debridement; muscle flap & wound VAC placement on 01/27 C/S + . Klebsiella (R amp) and G/S GPCs ,latter ID still pending S/P repeat I and D on 02/01 vascular planning for wound vac change later this week and early next week Leucocytosis ? reactive from gi bleed PAD s/p leg bypass on 01/06 ESRD Multiple antibiotic allergies Amiodarone therapy h/o VRE, MRSA, c. diff Nausea and vomiting awaiting egd Vision loss both eyes Plan: Plan of Care Zyvox with h/o VRE Gent. random trough 3.6 Flagyl 02/09 was on Vanc, Cefepime prior vision loss, need to be transferred to [facility] for ophthalmology eval still awaiting transfer, [facility] refused per staff, was to be tx to [facility] last night but was not able to transfer Probiotics Local wound care stool for c. diff pending Supportive care Patient seen, examined, I agree with above A/P by MARIA ESTHER D/W RN again to check with customer care coordinator if able to transfer today to [facility] GRACIELA LÓPEZ MD Feb 14, 2018 14:45
[2018-02-14 15:00] VITALS: BP 132/60
[2018-02-14 19:00] VITALS: BP 128/59
[2018-02-14] MEDS: NIACIN ER 500 MG TABLET.ER PO SCH (20:16)
[2018-02-14] MEDS: ATORVASTATIN CALCIUM 40 MG TABLET. PO SCH (20:16)
[2018-02-14] MEDS: FENOFIBRATE,MICRONIZED 134 MG CAPSULE PO SCH (20:16)
[2018-02-14] MEDS: FAMOTIDINE 20 MG TABLET. PO SCH (20:16)
[2018-02-14] MEDS: PATCH REMOVAL. MC SCH (20:17)
[2018-02-14 23:00] VITALS: BP 110/49
[2018-02-15 03:00] VITALS: BP 134/57
[2018-02-15] MEDS: HYDROmorphone 2 MG/ML VIAL IV PRN ×4 (04:02→22:35)
[2018-02-15 04:16] LABS: BASO # 0.1 x10^3/uL (0.0-0.2); BASO % 1 % (0-3); EOS # 0.1 x10^3/uL (0.0-0.7); EOS % 1 % (0-3); HEMATOCRIT 23.3 % (36.0-47.0); HEMOGLOBIN 7.8 g/dL (12.0-15.5); LYMPH # 1.1 x10^3/uL (1.0-4.8); LYMPH % 9 % (24-48); MEAN CORPUSCULAR HEMOGLOBIN 32 pg (25-35); MEAN CORPUSCULAR HGB CONC 34 g/dL (31-37); MEAN CORPUSCULAR VOLUME 95 fL (79-100); MONO % 8 % (0-9); NEUT # 10.6 x10^3uL (1.8-7.7); NEUT % 82 % (31-73); PLATELET COUNT 262 x10^3/uL (140-400); RED BLOOD COUNT 2.44 x10^6/uL (3.50-5.40); RED CELL DISTRIBUTION WIDTH 18.1 % (11.5-14.5); WHITE BLOOD COUNT 12.9 x10^3/uL (4.0-11.0)
[2018-02-15 04:27] LABS: CREATININE 3.6 mg/dL (0.6-1.0); GFR 13.3; POTASSIUM 3.6 mmol/L (3.5-5.1)
[2018-02-15] MEDS: PROCHLORPERAZINE 10 MG/2 ML VIAL. IV PRN ×2 (06:40→15:14)
[2018-02-15 07:00] VITALS: BP 157/50
[2018-02-15] MEDS: INSULIN LISPRO 300 UNITS/3 ML INSULN.PEN. SQ SCH ×3 (08:00→16:58)
[2018-02-15] MEDS: LUBIPROSTONE 8 MCG CAPSULE PO SCH ×3 (08:00→15:45)
[2018-02-15] MEDS: PANTOPRAZOLE 40 MG TABLET.DR. PO SCH (08:19)
[2018-02-15] MEDS: LACTOBACILLUS RHAMNOSUS GG 1 CAPSULE. PO SCH ×2 (08:19→20:11)
[2018-02-15] MEDS: FOLIC/VIT B COMP W-C (RENAL) TABLET. PO SCH (08:19)
[2018-02-15] MEDS: ERYTHROMYCIN BASE 250 MG TABLET PO SCH ×2 (08:19→20:09)
[2018-02-15] MEDS: CARVEDILOL 12.5 MG TABLET. PO SCH ×2 (08:20→16:58)
[2018-02-15] MEDS: carBAMazepine 200 MG TABLET PO SCH ×2 (08:20→20:10)
[2018-02-15] MEDS: TICAGRELOR 90 MG TABLET. PO SCH ×2 (08:20→20:11)
[2018-02-15] MEDS: MORPHINE ER 15 MG TABLET.ER PO SCH ×2 (08:20→20:10)
[2018-02-15] MEDS: FUROSEMIDE 80 MG TABLET. PO SCH ×2 (08:21→11:52)
[2018-02-15] MEDS: AMIODARONE HCL 200 MG TABLET. PO SCH (08:21)
[2018-02-15] MEDS: POLYETHYLENE GLYCOL 3350 17 GM PACKET. PO SCH (08:22)
[2018-02-15] MEDS: ASPIRIN ENTERIC COATED 81 MG TABLET.DR. PO SCH (08:22)
[2018-02-15] MEDS: CALCITRIOL 0.25 MCG CAPSULE. PO SCH (08:22)
--- NOTE | 2018-02-15 10:49 | PDOC ---
Infectious Disease Note Subjective Subjective diarrhea improving no n/v/d/fever ROS ROS still unable to see Vital Sign Vital Signs Vital Signs Date Time Temp Pulse Resp B/P (MAP) Pulse Ox O2 Delivery O2 Flow Rate FiO2 02/15/18 08:59 20 100 Nasal Cannula 2.0 02/15/18 08:21 73 157/50 02/15/18 07:00 97.8 97.8 Physical Exam PHYSICAL EXAM GENERAL: comfortable HENT: OC/Op- dry LUNGS: Clear. HEART: S1, S2 regular. ABDOMEN: Soft, NT, ND EXTREMITIES: Left BKA. RLE less swollen and red; + wrinkles. wound vac in place Heel without wound NEUROLOGIC: Alert, responds appropriately SKIN: without rash Tunnelled [facility] (01/29) clean Labs Lab Laboratory Tests Test 02/14/18 11:02 02/14/18 16:30 02/14/18 20:21 02/15/18 04:00 Glucose (Fingerstick) 128 mg/dL (70-99) 221 mg/dL (70-99) 140 mg/dL (70-99) White Blood Count 12.9 x10^3/uL (4.0-11.0) Red Blood Count 2.44 x10^6/uL (3.50-5.40) Hemoglobin 7.8 g/dL (12.0-15.5) Hematocrit 23.3 % (36.0-47.0) Mean Corpuscular Volume 95 fL (79-100) Mean Corpuscular Hemoglobin 32 pg (25-35) Mean Corpuscular Hemoglobin Concent 34 g/dL (31-37) Red Cell Distribution Width 18.1 % (11.5-14.5) Platelet Count 262 x10^3/uL (140-400) Neutrophils (%) (Auto) 82 % (31-73) Lymphocytes (%) (Auto) 9 % (24-48) Monocytes (%) (Auto) 8 % (0-9) Eosinophils (%) (Auto) 1 % (0-3) Basophils (%) (Auto) 1 % (0-3) Neutrophils # (Auto) 10.6 x10^3uL (1.8-7.7) Lymphocytes # (Auto) 1.1 x10^3/uL (1.0-4.8) Monocytes # (Auto) 1.0 x10^3/uL (0.0-1.1) Eosinophils # (Auto) 0.1 x10^3/uL (0.0-0.7) Basophils # (Auto) 0.1 x10^3/uL (0.0-0.2) Sodium Level 140 mmol/L (136-145) Potassium Level 3.6 mmol/L (3.5-5.1) Chloride Level 102 mmol/L (98-107) Carbon Dioxide Level 31 mmol/L (21-32) Anion Gap 7 (6-14) Blood Urea Nitrogen 10 mg/dL (7-20) Creatinine 3.6 mg/dL (0.6-1.0) Estimated GFR (Cockcroft-Gault) 13.3 Glucose Level 107 mg/dL (70-99) Calcium Level 8.0 mg/dL (8.5-10.1) Test 02/15/18 07:06 Glucose (Fingerstick) 92 mg/dL (70-99) Micro ANAEROBIC-AEROBIC CULTURE Final Final report ANAEROBIC RES 1 Final Comment No anaerobic growth in 72 hours. AEROBIC CULT Final Final report AEROBIC RES 1 Final Klebsiella pneumoniae 4+ ANTIMICROBIAL SUSCEPTIBILITY Final Comment S = Susceptible; I = Intermediate; R = Resistant P = Positive; N = Negative MICS are expressed in micrograms per mL Antibiotic RSLT#1 RSLT#2 RSLT#3 RSLT#4 Amoxicillin/Clavulanic Acid S<=2 Ampicillin R>=32 Cefepime S<=0.12 Ceftriaxone S<=0.25 Cefuroxime S =4 Ciprofloxacin S =1 Ertapenem S<=0.12 Gentamicin S<=1 Imipenem S<=0.25 Levofloxacin S =1 Meropenem S<=0.25 Piperacillin/Tazobactam S<=4 Tetracycline S<=1 Objective Assessment Right leg surgery site infection s/p excisional debridement; muscle flap & wound VAC placement on 01/27 C/S + . Klebsiella (R amp) and G/S GPCs , S/P repeat I and D on 02/01 vascular planning for wound vac change later this week and early next week Leucocytosis ? reactive from gi bleed PAD s/p leg bypass on 01/06 ESRD Multiple antibiotic allergies Amiodarone therapy h/o VRE, MRSA, c. diff Nausea and vomiting awaiting egd Vision loss both eyes Plan Plan of Care Zyvox with h/o VRE Gent. random trough 3.6 Flagyl 02/09 was on Vanc, Cefepime prior vision loss, need to be transferred to [facility] for ophthalmology eval still awaiting transfer, [facility] refused per staff, was to be tx to [facility] last night but was not able to transfer Probiotics Local wound care stool for c. diff neg Supportive care now they say we have Dr Galvez ophthalmology, waiting for him to see pt DANDY LÓPEZ MD Feb 15, 2018 10:49
[2018-02-15 11:13] VITALS: BP 144/56
--- NOTE | 2018-02-15 11:13 | PDOC ---
PROGRESS NOTES Chief Complaint Chief Complaint RIght groin sx wound infection s/p i and d 02/01 and 02/05 with wound vac on, wound cx + Kpna recent right leg PAD s/p R fem to pop bypass ESRD on dialysis h/o L BKA CAD w/ hx CABG, EF 50% Diabetic retinopathy worsening vision bl recently with h/o Macular degeneration, retinal bleeding and Cataracts H/O CAD with multiple stents Leukocytosis post steroids - trending down Right lower extremity swelling with superficial skin breakdown from injury on with abrasion and subsequent redness and swelling, treated with outpatient Keflex End-stage renal disease, on dialysis via AV fistula here ,at home per pt is on PD. ANTIBIOTIC ALLERGY TO MEROPENEM, PIPERACILLIN AND TAZOBACTAM CAUSING PEELING AND BLEEDING OF THE SKIN. ALSO, SULFA. TOLERATES KEFLEX AND HAS BEEN ON CEFAZOLIN, THOUGH HAS CAUSED ITCHING. H/o recent urinary tract infection, though urine cultures are negative, on Cipro POA for 5 days. A- fib, amiodarone therapy Gastroparesis, E. Mycin Left retinal optic disc drusen, bl blurry vision EGD 02/05 non erosive gatritis decubitus ulcer gastroparesis Distended hydropic gallbladder containing sludge. Hepatomegaly. 1.4 cm lobular lesion along the left renal cortex stable plan: fu with id, vascular, renal, gi on wound vac, wound care changed abx to zyvox, genta, flagyl as per ID. neg bcx so far. wound cx + kPNA cont home meds dvt ppx discussed with pt about the US finding, likely no sx intervention needed at this time point given pt has no abd pain and other issues going on, fu with GI, HIDA done. talked to wound care, FU WITH vascular , i and d 02/05 again. watching closely since higher wbc again. dc select when stable. dc lantus to 15u qhs, change to high dose ssi. talked to ID yesterday, who concerning possible retinal bleeding or detachment and recommend transfer. we find out [facility] have inpt ophthal service now. however, [facility] refused transfer. i talked to supervisor production managing today, found dr. Oshea discussed with opthal 2 weeks ago and they would not do anything given pt has acute issues in Hosp with groin infection and i and d. we will try to transfer to or [facility]. discussed with sw and pt. waiting for [facility] to take her for opthal [place] if they have bed. History of Present Illness History of Present Illness Pt seen and examined Dw RN Sitting up right SHe only sees a shadow of me This all started 2 weeks ago when she started seeing blood smears Transfer to [facility] on hold because Dr. Jones our evaluation assistant will come see the patient Otherwise accepted at [facility] Plan Ophtha to see the patient I have reconciled meds inpatient if in case goes to LTAC today pending optha eval Vitals Vitals Vital Signs Date Time Temp Pulse Resp B/P (MAP) Pulse Ox O2 Delivery O2 Flow Rate FiO2 02/15/18 08:59 20 100 Nasal Cannula 2.0 02/15/18 08:21 73 157/50 02/15/18 07:00 97.8 97.8 Physical Exam Physical Exam GENERAL: comfortable HENT: OC/Op- dry LUNGS: Clear. HEART: S1, S2 regular. ABDOMEN: Soft, NT, ND EXTREMITIES: Left BKA. RLE less swollen and red; + wrinkles. wound vac in place Heel without wound NEUROLOGIC: Alert, responds appropriately SKIN: without rash Tunnelled LIJ (01/29) clean General: Alert, Oriented X3, Cooperative, No acute distress Heart: Regular rate, Normal S1, Normal S2, No murmurs, Gallops Lungs: Wheezing Abdomen: Normal bowel sounds, Soft, No tenderness, No hepatosplenomegaly, No masses Extremities: Other (wound inspected. Excellent muscle viability. Some washburn exudate peripheral edges superior and medial. Should respond to further wound suction dressing. measurements recorded.) Skin: No breakdown, Other (dehiscence of the proximal right common femoral incision and vein harvest site with lower extremity edema and mild cellulitis) Labs LABS Laboratory Tests Test 02/14/18 16:30 02/14/18 20:21 02/15/18 04:00 02/15/18 07:06 Glucose (Fingerstick) 221 mg/dL (70-99) 140 mg/dL (70-99) 92 mg/dL (70-99) White Blood Count 12.9 x10^3/uL (4.0-11.0) Red Blood Count 2.44 x10^6/uL (3.50-5.40) Hemoglobin 7.8 g/dL (12.0-15.5) Hematocrit 23.3 % (36.0-47.0) Mean Corpuscular Volume 95 fL (79-100) Mean Corpuscular Hemoglobin 32 pg (25-35) Mean Corpuscular Hemoglobin Concent 34 g/dL (31-37) Red Cell Distribution Width 18.1 % (11.5-14.5) Platelet Count 262 x10^3/uL (140-400) Neutrophils (%) (Auto) 82 % (31-73) Lymphocytes (%) (Auto) 9 % (24-48) Monocytes (%) (Auto) 8 % (0-9) Eosinophils (%) (Auto) 1 % (0-3) Basophils (%) (Auto) 1 % (0-3) Neutrophils # (Auto) 10.6 x10^3uL (1.8-7.7) Lymphocytes # (Auto) 1.1 x10^3/uL (1.0-4.8) Monocytes # (Auto) 1.0 x10^3/uL (0.0-1.1) Eosinophils # (Auto) 0.1 x10^3/uL (0.0-0.7) Basophils # (Auto) 0.1 x10^3/uL (0.0-0.2) Sodium Level 140 mmol/L (136-145) Potassium Level 3.6 mmol/L (3.5-5.1) Chloride Level 102 mmol/L (98-107) Carbon Dioxide Level 31 mmol/L (21-32) Anion Gap 7 (6-14) Blood Urea Nitrogen 10 mg/dL (7-20) Creatinine 3.6 mg/dL (0.6-1.0) Estimated GFR (Cockcroft-Gault) 13.3 Glucose Level 107 mg/dL (70-99) Calcium Level 8.0 mg/dL (8.5-10.1) Review of Systems Review of Systems A 14 point ROS was completed with the following noted as positive: Other systems reviewed and negative. \CONSTITUTIONAL: No fever or chills EYES: No recent changes SKIN: No rash or itching CARDIOVASCULAR: No chest pain, syncope, palpitations, or edema RESPIRATORY: No SOB or cough GASTROINTESTINAL: No nausea, vomiting or abdominal pain NEUROLOGICAL: No headaches or weakness ENDOCRINE: No cold or heat intolerance GENITOURINARY: No urgency or frequency of urination MUSCULOSKELETAL: No back pain or joint pain LYMPHATICS: No enlarged lymph nodes PSYCHIATRIC: No anxiety or depression Assessment and Plan Assessmemt and Plan Problems Medical Problems: (1) Chronic renal failure Status: Acute Comment Review of Relevant I have reviewed the following items bert (where applicable) has been applied. Labs Laboratory Tests Test 02/13/18 13:28 02/13/18 16:51 02/13/18 21:10 02/14/18 06:10 Glucose (Fingerstick) 98 mg/dL (70-99) 116 mg/dL (70-99) 133 mg/dL (70-99) White Blood Count 13.6 x10^3/uL (4.0-11.0) Red Blood Count 2.49 x10^6/uL (3.50-5.40) Hemoglobin 7.8 g/dL (12.0-15.5) Hematocrit 23.8 % (36.0-47.0) Mean Corpuscular Volume 96 fL (79-100) Mean Corpuscular Hemoglobin 31 pg (25-35) Mean Corpuscular Hemoglobin Concent 33 g/dL (31-37) Red Cell Distribution Width 17.9 % (11.5-14.5) Platelet Count 302 x10^3/uL (140-400) Neutrophils (%) (Auto) 84 % (31-73) Lymphocytes (%) (Auto) 6 % (24-48) Monocytes (%) (Auto) 9 % (0-9) Eosinophils (%) (Auto) 1 % (0-3) Basophils (%) (Auto) 0 % (0-3) Neutrophils # (Auto) 11.5 x10^3uL (1.8-7.7) Lymphocytes # (Auto) 0.8 x10^3/uL (1.0-4.8) Monocytes # (Auto) 1.2 x10^3/uL (0.0-1.1) Eosinophils # (Auto) 0.1 x10^3/uL (0.0-0.7) Basophils # (Auto) 0.0 x10^3/uL (0.0-0.2) Sodium Level 138 mmol/L (136-145) Potassium Level 3.8 mmol/L (3.5-5.1) Chloride Level 102 mmol/L (98-107) Carbon Dioxide Level 32 mmol/L (21-32) Anion Gap 4 (6-14) Blood Urea Nitrogen 8 mg/dL (7-20) Creatinine 2.8 mg/dL (0.6-1.0) Estimated GFR (Cockcroft-Gault) 17.7 Glucose Level 112 mg/dL (70-99) Calcium Level 8.2 mg/dL (8.5-10.1) Test 02/14/18 07:39 02/14/18 11:02 02/14/18 16:30 02/14/18 20:21 Glucose (Fingerstick) 90 mg/dL (70-99) 128 mg/dL (70-99) 221 mg/dL (70-99) 140 mg/dL (70-99) Test 02/15/18 04:00 02/15/18 07:06 White Blood Count 12.9 x10^3/uL (4.0-11.0) Red Blood Count 2.44 x10^6/uL (3.50-5.40) Hemoglobin 7.8 g/dL (12.0-15.5) Hematocrit 23.3 % (36.0-47.0) Mean Corpuscular Volume 95 fL (79-100) Mean Corpuscular Hemoglobin 32 pg (25-35) Mean Corpuscular Hemoglobin Concent 34 g/dL (31-37) Red Cell Distribution Width 18.1 % (11.5-14.5) Platelet Count 262 x10^3/uL (140-400) Neutrophils (%) (Auto) 82 % (31-73) Lymphocytes (%) (Auto) 9 % (24-48) Monocytes (%) (Auto) 8 % (0-9) Eosinophils (%) (Auto) 1 % (0-3) Basophils (%) (Auto) 1 % (0-3) Neutrophils # (Auto) 10.6 x10^3uL (1.8-7.7) Lymphocytes # (Auto) 1.1 x10^3/uL (1.0-4.8) Monocytes # (Auto) 1.0 x10^3/uL (0.0-1.1) Eosinophils # (Auto) 0.1 x10^3/uL (0.0-0.7) Basophils # (Auto) 0.1 x10^3/uL (0.0-0.2) Sodium Level 140 mmol/L (136-145) Potassium Level 3.6 mmol/L (3.5-5.1) Chloride Level 102 mmol/L (98-107) Carbon Dioxide Level 31 mmol/L (21-32) Anion Gap 7 (6-14) Blood Urea Nitrogen 10 mg/dL (7-20) Creatinine 3.6 mg/dL (0.6-1.0) Estimated GFR (Cockcroft-Gault) 13.3 Glucose Level 107 mg/dL (70-99) Calcium Level 8.0 mg/dL (8.5-10.1) Glucose (Fingerstick) 92 mg/dL (70-99) Laboratory Tests Test 02/14/18 16:30 02/14/18 20:21 02/15/18 04:00 02/15/18 07:06 Glucose (Fingerstick) 221 mg/dL (70-99) 140 mg/dL (70-99) 92 mg/dL (70-99) White Blood Count 12.9 x10^3/uL (4.0-11.0) Red Blood Count 2.44 x10^6/uL (3.50-5.40) Hemoglobin 7.8 g/dL (12.0-15.5) Hematocrit 23.3 % (36.0-47.0) Mean Corpuscular Volume 95 fL (79-100) Mean Corpuscular Hemoglobin 32 pg (25-35) Mean Corpuscular Hemoglobin Concent 34 g/dL (31-37) Red Cell Distribution Width 18.1 % (11.5-14.5) Platelet Count 262 x10^3/uL (140-400) Neutrophils (%) (Auto) 82 % (31-73) Lymphocytes (%) (Auto) 9 % (24-48) Monocytes (%) (Auto) 8 % (0-9) Eosinophils (%) (Auto) 1 % (0-3) Basophils (%) (Auto) 1 % (0-3) Neutrophils # (Auto) 10.6 x10^3uL (1.8-7.7) Lymphocytes # (Auto) 1.1 x10^3/uL (1.0-4.8) Monocytes # (Auto) 1.0 x10^3/uL (0.0-1.1) Eosinophils # (Auto) 0.1 x10^3/uL (0.0-0.7) Basophils # (Auto) 0.1 x10^3/uL (0.0-0.2) Sodium Level 140 mmol/L (136-145) Potassium Level 3.6 mmol/L (3.5-5.1) Chloride Level 102 mmol/L (98-107) Carbon Dioxide Level 31 mmol/L (21-32) Anion Gap 7 (6-14) Blood Urea Nitrogen 10 mg/dL (7-20) Creatinine 3.6 mg/dL (0.6-1.0) Estimated GFR (Cockcroft-Gault) 13.3 Glucose Level 107 mg/dL (70-99) Calcium Level 8.0 mg/dL (8.5-10.1) Microbiology 02/06/18 Blood Culture - Final, Complete NO GROWTH AFTER 5 DAYS 01/27/18 Anaerobic/Aerobic Culture - Final, Complete 01/27/18 Anaerobic Culture Result 1 (ROSALIND) - Final, Complete 01/27/18 Aerobic Culture - Final, Complete 01/27/18 Aerobic Culture Result 1 (ROSALIND) - Final, Complete 01/27/18 Antimicrobic Susceptibility - Final, Complete 01/27/18 Gram Stain - Final, Complete 01/27/18 Gram Stain Result 1 (ROSALIND) - Final, Complete 01/27/18 Gram Stain Result 2 (ROSALIND) - Final, Complete Medications Current Medications Hydromorphone HCl (Dilaudid) 2 mg 1X ONCE IV Last administered on 01/26/18at 22 :39; Start 01/26/18 at 22:00; Stop 01/26/18 at 22:01; Status DC Vancomycin HCl (Vanco Per Pharmacy) 1 each PRN DAILY PRN MC SEE COMMENTS Last administered on 01/31/18at 17:20; Start 01/26/18 at 22:45; Stop 02/01/18 at 11:41 ; Status DC Vancomycin HCl 1.75 gm/Sodium Chloride 500 ml @ 250 mls/hr 1X ONCE IV Last administered on 01/26/18at 23:53; Start 01/26/18 at 23:00; Stop 01/27/18 at 00:59 ; Status DC Ondansetron HCl (Zofran) 4 mg PRN Q8HRS PRN IV NAUSEA/VOMITING 1ST CHOICE; Start 01/26/18 at 23:15; Stop 01/27/18 at 23:14; Status DC Sodium Chloride 1,000 ml @ 75 mls/hr [id number] IV Last administered on at 00:39; Start 01/26/18 at 23:30; Stop 01/27/18 at 23:29; Status DC Pharmacy Consult (C.diff Med Screen By Rx) 1 each 1X ONCE MC ; Start 01/27/18 at 01:00; Stop 01/27/18 at 01:01; Status Cancel Influenza Virus Vaccine (Afluria Trivalent 9650-3240 Syringe) 0.5 ml ONCE ONCE VAX IM Last administered on 01/27/18at 09:00; Start 01/27/18 at 09:00; Stop 01/27/18 at 09:01; Status DC Vancomycin HCl (Vancomycin Random Level) 1 each 1X ONCE MC Last administered on 01/28/18at 05:00; Start 01/28/18 at 05:00; Stop 01/28/18 at 05:01; Status DC Hydromorphone HCl (Dilaudid) 1 mg PRN Q3HRS PRN IV SEVERE PAIN Last administered on 02/15/18at 08:29; Start 01/27/18 at 03:30 Ondansetron HCl (Zofran) 4 mg PRN Q6HRS PRN IV NAUSEA/VOMITING; Start 01/27/18 at 10:45; Stop 01/27/18 at 18:00; Status DC Fentanyl Citrate (Fentanyl 2ml Vial) 25 mcg PRN Q5MIN PRN IV MILD PAIN; Start 01/27/18 at 10:45; Stop 01/27/18 at 18:00; Status DC Fentanyl Citrate (Fentanyl 2ml Vial) 50 mcg PRN Q5MIN PRN IV MODERATE TO SEVERE PAIN; Start 01/27/18 at 10:45; Stop 01/27/18 at 18:00; Status DC Morphine Sulfate (Morphine Sulfate) 1 mg PRN Q10MIN PRN IV SEVERE PAIN Last administered on 01/27/18at 16:28; Start 01/27/18 at 10:45; Stop 01/27/18 at 18:00 ; Status DC Ringer's Solution 1,000 ml @ 30 mls/hr Q24H IV Last administered on 01/27/18at 10:35; Start 01/27/18 at 10:35; Stop 01/27/18 at 19:36; Status DC Lidocaine HCl (Xylocaine-Mpf 1% 2ml Vial) 2 ml 1X PRN PRN ID IV START; Start 01/27/18 at 10:45; Stop 01/27/18 at 18:00; Status DC Hydromorphone HCl (Dilaudid) 0.5 mg PRN Q10MIN PRN IV SEV PAIN, Second choice Last administered on 01/27/18at 15:59; Start 01/27/18 at 10:45; Stop 01/27/18 at 18:00; Status DC Prochlorperazine Edisylate (Compazine) 5 mg PACU PRN PRN IV NAUSEA, MRX1; Start 01/27/18 at 10:45; Stop 01/27/18 at 18:00; Status DC Amiodarone HCl (Cordarone) 200 mg DAILY PO Last administered on 02/15/18at 08: 21; Start 01/27/18 at 12:30 Aspirin (Anthony Aspirin) 325 mg DAILY PO Last administered on 01/28/18at 09:13; Start 01/27/18 at 12:30; Stop 01/28/18 at 14:26; Status DC Carbamazepine (TEGretol) 200 mg BID PO Last administered on 02/15/18at 08:20; Start 01/27/18 at 12:30 Carvedilol (Coreg) 12.5 mg BIDWMEALS PO Last administered on 02/15/18at 08:20; Start 01/27/18 at 12:30 Vitamin B Complex/ Vitamin C (Melly-Shabbir) 1 tab DAILY PO Last administered on at 08:19; Start 01/27/18 at 12:30 Furosemide (Lasix) 80 mg [id number] PO Last administered on 02/15/18at 08:21; Start 01/27/18 at 12:30 Insulin Glargine (Lantus) 22 units QHS SQ Last administered on 02/12/18at 21:25 ; Start 01/27/18 at 21:00; Stop 02/13/18 at 09:35; Status DC Morphine Sulfate (Ms Contin) 15 mg BID PO Last administered on 02/15/18 08:20 ; Start 01/27/18 at 12:30 Nitroglycerin (Nitrostat) 0.4 mg PRN Q5MIN PRN SL CHEST PAIN; Start 01/27/18 at 12:00 Nystatin (Nystop) 1 susanna PRN BID PRN TP SKIN BREAKDOWN; Start 01/27/18 at 12:00 Tramadol HCl (Ultram) 50 mg PRN Q4HRS PRN PO HEADACHE Last administered on 09:19; Start 01/27/18 at 12:00 Non-Formulary Medication (Albuterol Sulfate (Proventil Hfa Inhaler)) 2 puff BID PRN IH FOR ASTHMA; Start 01/27/18 at 12:00; Status UNV Atorvastatin Calcium (Lipitor) 80 mg QHS PO Last administered on 02/14/18 20: 16; Start 01/27/18 at 21:00 Calcitriol (Rocaltrol) 0.25 mcg DAILY PO Last administered on 02/15/18at 08:22 ; Start 01/27/18 at 12:30 Diltiazem HCl (Cardizem 24hr Cd) 120 mg DAILY PO Last administered on 08:19; Start 01/27/18 at 12:30 Erythromycin (E-Mycin) 250 mg BID PO Last administered on 02/15/18 08:19; Start 01/27/18 at 21:00 Fenofibrate (Lofibra) 134 mg QHS PO Last administered on 02/14/18at 20:16; Start 01/27/18 at 21:00 Non-Formulary Medication (Fluconazole (Diflucan)) 100 mg PRN PO ; Start at 12:00; Status UNV Lidocaine (Lidoderm) 1 patch PRN DAILY PRN TD PAIN; Start 01/27/18 at 09:00 Niacin (Slo-Niacin) 500 mg QHS PO Last administered on 02/14/18at 20:16; Start 01/27/18 at 21:00 Ondansetron HCl (Zofran Odt) 4 mg PRN Q6HRS PRN PO NAUSEA/VOMITING Last administered on 02/13/18at 21:54; Start 01/27/18 at 12:15 Miscellaneous (Lidoderm Patch Removal) 1 ea QHS MC Last administered on at 20:17; Start 01/27/18 at 21:00 Albuterol Sulfate (Ventolin Neb Soln) 2.5 mg PRN BID PRN NEB SHORTNESS OF BREATH Last administered on 01/27/18at 21:59; Start 01/27/18 at 12:30 Lidocaine HCl (Lidocaine 1% 50ml Vial) 50 ml 1X ONCE INJ Last administered on 01/27/18at 14:06; Start 01/27/18 at 12:45; Stop 01/27/18 at 12:46; Status DC Hydromorphone HCl (Dilaudid) 2 mg STK-MED ONCE .ROUTE ; Start 01/27/18 at 12:36 ; Stop 01/27/18 at 12:38; Status DC Propofol 20 ml @ As Directed STK-MED ONCE IV ; Start 01/27/18 at 12:38; Stop at 12:39; Status DC Bacitracin 61301 unit/Sodium Chloride 3,000 ml @ 0 mls/hr 1X ONCE IR ; Start 01/27/18 at 13:15; Stop 01/27/18 at 13:16; Status Cancel Dexamethasone Sodium Phosphate (Decadron) 20 mg STK-MED ONCE .ROUTE ; Start 01/27/18 at 13:11; Stop 01/27/18 at 13:12; Status DC Ondansetron HCl (Zofran) 4 mg STK-MED ONCE .ROUTE ; Start 01/27/18 at 13:11; Stop 01/27/18 at 13:12; Status DC Sevoflurane (Ultane) 30 ml STK-MED ONCE IH ; Start 01/27/18 at 13:11; Stop 01/27 at 13:12; Status DC Bacitracin (Bacitracin) 50,000 unit STK-MED ONCE IRR Last administered on at 13:58; Start 01/27/18 at 12:14; Stop 01/27/18 at 13:16; Status DC Clopidogrel Bisulfate (Plavix) 75 mg DAILYWBKFT PO Last administered on at 09:13; Start 01/28/18 at 08:00; Stop 01/28/18 at 14:28; Status DC Hydromorphone HCl (Dilaudid) 2 mg STK-MED ONCE .ROUTE ; Start 01/27/18 at 15:38 ; Stop 01/27/18 at 15:40; Status DC Gentamicin Sulfate 235 mg/ Dextrose 105.875 ml @ 105.875 mls/hr 1X ONCE IV Last administered on 01/27/18at 19:56; Start 01/27/18 at 16:00; Stop 01/27/18 at 16:59; Status DC Lactobacillus Rhamnosus (Culturelle) 1 cap BID PO Last administered on at 08:19; Start 01/27/18 at 21:00 Cefepime HCl 1 gm/ Dextrose 50 ml @ 100 mls/hr DAILY IV ; Start 01/29/18 at 09: 00; Status UNV Metronidazole 100 ml @ 100 mls/hr Q12HR IV Last administered on 02/02/18at 21: 00; Start 01/28/18 at 10:00; Stop 02/03/18 at 10:49; Status DC Cefepime HCl (Maxipime) 1 gm Q24H IVP Last administered on 02/03/18at 10:54; Start 01/28/18 at 10:00; Stop 02/04/18 at 12:02; Status DC Lidocaine HCl (Xylocaine-Mpf 2% Vial) 2 ml STK-MED ONCE .ROUTE ; Start 01/28/18 at 11:41; Stop 01/28/18 at 11:42; Status DC Sodium Chloride 1,000 ml @ 1,000 mls/hr Q1H PRN IV hypotension; Start 01/28/18 at 12:09; Stop 01/28/18 at 18:08; Status DC Info (PHARMACY MONITORING -- do not chart) 1 each PRN DAILY PRN MC SEE COMMENTS ; Start 01/28/18 at 12:15; Status UNV Info (PHARMACY MONITORING -- do not chart) 1 each PRN DAILY PRN MC SEE COMMENTS ; Start 01/28/18 at 12:15; Stop 01/31/18 at 09:10; Status DC Lidocaine HCl (Xylocaine-Mpf 2% Vial) 2 ml 1X ONCE INJ ; Start 01/28/18 at 12: 15; Stop 01/28/18 at 12:21; Status DC Ticagrelor (Brilinta) 90 mg BID PO Last administered on 02/15/18at 08:20; Start 01/28/18 at 21:00 Diphenhydramine HCl (Benadryl) 25 mg PRN Q6HRS PRN PO ITCHING; Start 01/28/18 at 14:15 Aspirin (Ecotrin) 81 mg DAILYWBKFT PO Last administered on 02/15/18at 08:22; Start 01/29/18 at 08:00 Insulin Human Lispro (HumaLOG) 0-5 UNITS TIDWMEALS SQ Last administered on at 17:48; Start 01/28/18 at 17:00; Stop 02/14/18 at 13:04; Status DC Dextrose (Dextrose 50%-Water Syringe) 12.5 gm PRN Q15MIN PRN IV SEE COMMENTS Last administered on 02/05/18at 08:50; Start 01/28/18 at 14:45; Stop 02/14/18 at 13:06; Status DC Hydralazine HCl (Apresoline) 10 mg PRN TID PRN PO hypertension; Start 01/28/18 at 14:45 Oxycodone/ Acetaminophen (Percocet 10/325) 1 tab PRN Q4HRS PRN PO pain SEVERE Last administered on 02/10/18at 17:24; Start 01/29/18 at 07:45 Promethazine HCl (Phenergan Supp) 12.5 mg 1X ONCE VA ; Start 01/29/18 at 12:15 ; Stop 01/29/18 at 12:36; Status DC Promethazine HCl (Phenergan Im) 12.5 mg 1X ONCE IM ; Start 01/29/18 at 12:45; Stop 01/29/18 at 12:46; Status DC Lidocaine/ Epinephrine (LIDOCAINE 1%-EPI 1:100,000 Multi-Dose) 20 ml STK-MED ONCE .ROUTE ; Start 01/29/18 at 12:45; Stop 01/29/18 at 12:47; Status DC Heparin Sodium (Porcine) (Hep Lock Adult) 500 unit STK-MED ONCE IV ; Start 01/29 at 12:45; Stop 01/29/18 at 12:47; Status DC Morphine Sulfate (Morphine Sulfate) 10 mg STK-MED ONCE .ROUTE ; Start 01/29/18 at 13:23; Stop 01/29/18 at 13:25; Status DC Midazolam HCl (Versed) 2 mg STK-MED ONCE .ROUTE ; Start 01/29/18 at 13:23; Stop 01/29/18 at 13:25; Status DC Morphine Sulfate (Morphine Sulfate) 1 mg PRN Q10MIN PRN IV SEVERE PAIN Last administered on 02/01/18at 15:46; Start 02/01/18 at 07:00; Stop 02/02/18 at 06:59 ; Status DC Ringer's Solution 1,000 ml @ 30 mls/hr Q24H IV ; Start 02/01/18 at 07:00; Stop 02/01/18 at 18:59; Status DC Lidocaine HCl (Xylocaine-Mpf 1% 2ml Vial) 2 ml PRN 1X PRN ID PRIOR TO IV START ; Start 02/01/18 at 07:00; Stop 02/02/18 at 06:59; Status DC Hydromorphone HCl (Dilaudid) 0.5 mg PRN Q10MIN PRN IV SEV PAIN, Second choice Last administered on 02/01/18at 16:08; Start 02/01/18 at 07:00; Stop 02/02/18 at 06:59; Status DC Prochlorperazine Edisylate (Compazine) 5 mg PACU PRN PRN IV NAUSEA, MRX1; Start 02/01/18 at 07:00; Stop 02/02/18 at 06:59; Status DC Lidocaine/ Epinephrine (LIDOCAINE 1%-EPI 1:100,000 Multi-Dose) 8 ml 1X ONCE IJ Last administered on 01/29/18at 14:01; Start 01/29/18 at 14:00; Stop 01/29/18 at 14:17; Status DC Heparin Sodium (Porcine) (Hep Lock Adult) 500 unit 1X ONCE IV Last administered on 01/29/18at 14:04; Start 01/29/18 at 14:00; Stop 01/29/18 at 14:17 ; Status DC Morphine Sulfate (Morphine Sulfate) 5 mg 1X ONCE IV Last administered on at 14:01; Start 01/29/18 at 14:00; Stop 01/29/18 at 14:17; Status DC Ondansetron HCl (Zofran) 4 mg PRN Q6HRS PRN IV NAUSEA/VOMITING 1ST CHOICE Last administered on 02/13/18at 06:09; Start 01/29/18 at 14:45 Vancomycin HCl 500 mg/Sodium Chloride 100 ml @ 100 mls/hr 1X ONCE IV Last administered on 01/29/18at 21:04; Start 01/29/18 at 18:00; Stop 01/29/18 at 18:59 ; Status DC Sodium Chloride 1,000 ml @ 1,000 mls/hr Q1H PRN IV hypotension; Start 01/30/18 at 13:09; Stop 01/30/18 at 19:08; Status DC Sodium Chloride (Normal Saline Flush) 10 ml 1X PRN PRN IV AP catheter pack; Start 01/30/18 at 13:15; Stop 01/31/18 at 13:14; Status DC Sodium Chloride (Normal Saline Flush) 10 ml 1X PRN PRN IV [employer] catheter pack; Start 01/30/18 at 13:15; Stop 01/31/18 at 13:14; Status DC Sodium Chloride 1,000 ml @ 400 mls/hr Q2H30M PRN IV PATENCY; Start 01/30/18 at 13:09; Stop 01/31/18 at 01:08; Status DC Info (PHARMACY MONITORING -- do not chart) 1 each PRN DAILY PRN MC SEE COMMENTS ; Start 01/30/18 at 13:15; Stop 01/30/18 at 13:17; Status DC Info (PHARMACY MONITORING -- do not chart) 1 each PRN DAILY PRN MC SEE COMMENTS ; Start 01/30/18 at 13:15; Stop 02/04/18 at 07:27; Status DC Lidocaine HCl (Lidocaine 1% 50ml Vial) 50 ml 1X ONCE INJ ; Start 01/30/18 at 15 :45; Stop 01/30/18 at 15:46; Status DC Vancomycin HCl 500 mg/Sodium Chloride 100 ml @ 100 mls/hr ONCE ONCE IV Last administered on 01/30/18at 20:49; Start 01/30/18 at 18:00; Stop 01/30/18 at 18:59 ; Status DC Cefazolin Sodium 1 gm/Sodium Chloride 500 ml @ 500 mls/hr 1X ONCE IRR ; Start 02/01/18 at 06:00; Stop 02/01/18 at 06:59; Status DC Lidocaine HCl (Xylocaine-Mpf 2% Vial) 2 ml STK-MED ONCE .ROUTE ; Start 01/28/18 at 12:00; Stop 02/01/18 at 08:30; Status DC Darbepoetin Mauricio (Aranesp) 60 mcg [id number] SQ Last administered on 02/08/18at 20:41; Start 02/01/18 at 21:00 Cellulose (Surgicel Fibrillar 1x2) 1 each STK-MED ONCE .ROUTE ; Start 02/01/18 at 12:05; Stop 02/01/18 at 13:06; Status DC Lidocaine HCl (Xylocaine 1% Pf 30ml Vial) 30 ml 1X ONCE INJ ; Start 02/01/18 at 13:15; Stop 02/01/18 at 13:18; Status DC Sodium Chloride 1,000 ml @ 75 mls/hr [id number] IV Last administered on at 00:15; Start 02/01/18 at 13:45; Stop 02/02/18 at 16:43; Status DC Morphine Sulfate (Morphine Sulfate) 10 mg STK-MED ONCE .ROUTE ; Start 02/01/18 at 14:24; Stop 02/01/18 at 14:25; Status DC Midazolam HCl (Versed) 2 mg STK-MED ONCE .ROUTE ; Start 02/01/18 at 14:24; Stop 02/01/18 at 14:25; Status DC Midazolam HCl (Versed) 2 mg STK-MED ONCE .ROUTE ; Start 02/01/18 at 14:25; Stop 02/01/18 at 14:26; Status DC Propofol 20 ml @ As Directed STK-MED ONCE IV ; Start 02/01/18 at 14:25; Stop at 14:26; Status DC Dexamethasone Sodium Phosphate (Decadron) 20 mg STK-MED ONCE .ROUTE ; Start 02/01/18 at 14:25; Stop 02/01/18 at 14:26; Status DC Ondansetron HCl (Zofran) 4 mg STK-MED ONCE .ROUTE ; Start 02/01/18 at 14:25; Stop 02/01/18 at 14:26; Status DC Bacitracin (Bacitracin) 50,000 unit STK-MED ONCE IRR Last administered on at 14:55; Start 02/01/18 at 13:32; Stop 02/01/18 at 14:32; Status DC Vancomycin HCl 500 mg/Sodium Chloride 100 ml @ 100 mls/hr [id number] IV Last administered on 02/02/18at 16:15; Start 02/02/18 at 16:00; Stop 02/04/18 at 12: 02; Status DC Sodium Chloride 1,000 ml @ 1,000 mls/hr Q1H PRN IV hypotension; Start 02/02/18 at 09:39; Stop 02/02/18 at 15:38; Status DC Albumin Human 200 ml @ 200 mls/hr 1X PRN PRN IV Hypotension; Start 02/02/18 at 09:45; Stop 02/02/18 at 15:44; Status DC Sodium Chloride 1,000 ml @ 400 mls/hr Q2H30M PRN IV PATENCY; Start 02/02/18 at 09:39; Stop 02/02/18 at 21:38; Status DC Info (PHARMACY MONITORING -- do not chart) 1 each PRN DAILY PRN MC SEE COMMENTS ; Start 02/02/18 at 09:45; Stop 02/04/18 at 07:28; Status DC Info (PHARMACY MONITORING -- do not chart) 1 each PRN DAILY PRN MC SEE COMMENTS ; Start 02/02/18 at 09:45; Status UNV Prochlorperazine Edisylate (Compazine) 10 mg PRN Q6HRS PRN IV NAUSEA/VOMITING 2ND CHOICE Last administered on 02/15/18at 06:40; Start 02/02/18 at 11:30 Vancomycin HCl (Vanco Per Pharmacy) 1 each PRN DAILY PRN MC SEE COMMENTS Last administered on 02/02/18at 13:57; Start 02/02/18 at 14:00; Stop 02/04/18 at 12: 02; Status DC Famotidine (Pepcid Vial) 20 mg DAILY IVP Last administered on 02/08/18at 09:00 ; Start 02/03/18 at 10:00; Stop 02/08/18 at 11:45; Status DC Alteplase, Recombinant (Cathflo) 2 mg 1X ONCE INT CAT Last administered on 03/14at 02:56; Start 02/04/18 at 03:00; Stop 02/04/18 at 03:01; Status DC Sodium Chloride 1,000 ml @ 1,000 mls/hr Q1H PRN IV hypotension; Start at 07:15; Stop 02/04/18 at 13:14; Status DC Albumin Human 200 ml @ 200 mls/hr 1X PRN PRN IV Hypotension Last administered on 02/04/18at 11:26; Start 02/04/18 at 07:15; Stop 02/04/18 at 13:14; Status DC Acetaminophen (Tylenol) 500 mg 1X PRN PRN PO MILD PAIN / TEMP; Start 02/04/18 at 07:15; Stop 02/05/18 at 07:14; Status DC Diphenhydramine HCl (Benadryl) 25 mg 1X PRN PRN IV ITCHING; Start 02/04/18 at 07:15; Stop 02/05/18 at 07:14; Status DC Diphenhydramine HCl (Benadryl) 25 mg 1X PRN PRN IV ITCHING; Start 02/04/18 at 07:15; Stop 02/05/18 at 07:14; Status DC Sodium Chloride 1,000 ml @ 400 mls/hr Q2H30M PRN IV PATENCY; Start 02/04/18 at 07:15; Stop 02/04/18 at 19:14; Status DC Info (PHARMACY MONITORING -- do not chart) 1 each PRN DAILY PRN MC SEE COMMENTS ; Start 02/04/18 at 07:15; Status Cancel Lidocaine HCl (Xylocaine-Mpf 2% Vial) 2 ml STK-MED ONCE .ROUTE ; Start at 09:43; Stop 02/04/18 at 09:44; Status DC Docusate Sodium (Colace) 100 mg PRN DAILY PRN PO CONSTIPATION Last administered on 02/07/18at 22:13; Start 02/04/18 at 10:30 Ceftriaxone Sodium 2 gm/ Dextrose 100 ml @ 200 mls/hr Q24H IV Last administered on 02/04/18at 14:24; Start 02/04/18 at 13:00; Stop 02/05/18 at 11 :49; Status DC Morphine Sulfate (Morphine Sulfate) 1 mg PRN Q10MIN PRN IV SEVERE PAIN; Start 02/05/18 at 07:00; Stop 02/06/18 at 06:59; Status DC Ringer's Solution 1,000 ml @ 30 mls/hr Q24H IV ; Start 02/05/18 at 07:00; Stop 02/05/18 at 18:59; Status DC Lidocaine HCl (Xylocaine-Mpf 1% 2ml Vial) 2 ml PRN 1X PRN ID IV START; Start 02/05/18 at 07:00; Stop 02/06/18 at 06:59; Status DC Hydromorphone HCl (Dilaudid) 0.5 mg PRN Q10MIN PRN IV SEV PAIN, Second choice; Start 02/05/18 at 07:00; Stop 02/06/18 at 06:59; Status DC Prochlorperazine Edisylate (Compazine) 5 mg PACU PRN PRN IV NAUSEA, MRX1; Start 02/05/18 at 07:00; Stop 02/06/18 at 06:59; Status DC Lidocaine HCl (Xylocaine-Mpf 2% Vial) 2 ml STK-MED ONCE .ROUTE ; Start at 10:00; Stop 02/05/18 at 08:19; Status DC Sodium Chloride 1,000 ml @ 75 mls/hr [id number] IV Last administered on at 07:00; Start 02/05/18 at 10:30; Stop 02/08/18 at 15:20; Status DC Cefepime HCl 1 gm/ Dextrose 50 ml @ 100 mls/hr DAILY IV ; Start 02/06/18 at 09 :00; Status UNV Vancomycin HCl (Vanco Per Pharmacy) 1 each PRN DAILY PRN MC SEE COMMENTS Last administered on 02/08/18at 14:35; Start 02/05/18 at 12:00; Stop 02/09/18 at 09 :50; Status DC Cefepime HCl (Maxipime) 1 gm Q24H IVP Last administered on 02/08/18at 14:49; Start 02/05/18 at 12:00; Stop 02/09/18 at 09:35; Status DC Propofol 20 ml @ As Directed STK-MED ONCE IV ; Start 02/05/18 at 12:08; Stop 02/05/18 at 12:09; Status DC Lidocaine HCl (Xylocaine-Mpf 2% Vial) 2 ml STK-MED ONCE .ROUTE ; Start at 12:08; Stop 02/05/18 at 12:09; Status DC Vancomycin HCl 1.5 gm/Sodium Chloride 500 ml @ 250 mls/hr 1X ONCE IV Last administered on 02/05/18at 14:05; Start 02/05/18 at 14:00; Stop 02/05/18 at 15 :59; Status DC Vancomycin HCl (Vancomycin Random Level) 1 each 1X ONCE MC Last administered on 02/06/18at 05:00; Start 02/06/18 at 05:00; Stop 02/06/18 at 05:01; Status DC Sodium Chloride 1,000 ml @ 1,000 mls/hr Q1H PRN IV hypotension; Start at 08:12; Stop 02/06/18 at 14:11; Status DC Sodium Chloride 1,000 ml @ 400 mls/hr Q2H30M PRN IV PATENCY; Start 02/06/18 at 08:12; Stop 02/06/18 at 20:11; Status DC Info (PHARMACY MONITORING -- do not chart) 1 each PRN DAILY PRN MC SEE COMMENTS ; Start 02/06/18 at 08:15; Status UNV Info (PHARMACY MONITORING -- do not chart) 1 each PRN DAILY PRN MC SEE COMMENTS ; Start 02/06/18 at 08:15; Status UNV Lidocaine HCl (Xylocaine-Mpf 1% 2ml Vial) 2 ml 1X ONCE ID Last administered on 02/06/18at 08:30; Start 02/06/18 at 08:30; Stop 02/06/18 at 08:31; Status DC Lidocaine HCl (Xylocaine-Mpf 2% Vial) 2 ml STK-MED ONCE .ROUTE ; Start at 08:32; Stop 02/06/18 at 08:33; Status DC Diphenhydramine HCl (Benadryl) 50 mg 1X ONCE IVP Last administered on at 09:10; Start 02/06/18 at 09:00; Stop 02/06/18 at 09:02; Status DC Vancomycin HCl (Vancomycin Random Level) 1 each 1X ONCE MC Last administered on 02/08/18at 05:00; Start 02/08/18 at 05:00; Stop 02/08/18 at 05:01; Status DC Lidocaine HCl (Xylocaine-Mpf 2% Vial) 2 ml STK-MED ONCE .ROUTE ; Start at 09:00; Stop 02/08/18 at 07:54; Status DC Polyethylene Glycol (miraLAX PACKET) 17 gm DAILY PO Last administered on at 14:16; Start 02/08/18 at 12:30 Famotidine (Pepcid) 20 mg QHS PO Last administered on 02/14/18at 20:16; Start 02/08/18 at 21:00 Vancomycin HCl 500 mg/Sodium Chloride 100 ml @ 100 mls/hr QTUTHSA IV ; Start 02/09/18 at 16:00; Stop 02/09/18 at 16:00; Status DC Sodium Chloride 1,000 ml @ 1,000 mls/hr Q1H PRN IV hypotension; Start at 08:21; Stop 02/09/18 at 14:20; Status DC Sodium Chloride 1,000 ml @ 400 mls/hr Q2H30M PRN IV PATENCY; Start 02/09/18 at 08:21; Stop 02/09/18 at 20:20; Status DC Info (PHARMACY MONITORING -- do not chart) 1 each PRN DAILY PRN MC SEE COMMENTS ; Start 02/09/18 at 08:30; Status UNV Info (PHARMACY MONITORING -- do not chart) 1 each PRN DAILY PRN MC SEE COMMENTS ; Start 02/09/18 at 08:30; Status Cancel Diphenhydramine HCl (Benadryl) 50 mg 1X ONCE IVP Last administered on at 09:06; Start 02/09/18 at 08:30; Stop 02/09/18 at 08:31; Status DC Lidocaine HCl (Xylocaine-Mpf 2% Vial) 2 ml STK-MED ONCE .ROUTE ; Start at 08:40; Stop 02/09/18 at 08:41; Status DC Linezolid/Dextrose 300 ml @ 300 mls/hr Q12HR IV Last administered on at 08:19; Start 02/09/18 at 10:00 Gentamicin Sulfate 1 each PRN DAILY PRN MC SEE COMMENTS Last administered on at 12:53; Start 02/09/18 at 09:30 Metronidazole 100 ml @ 100 mls/hr Q8HRS IV Last administered on 02/15/18at 05: 40; Start 02/09/18 at 14:00 Gentamicin Sulfate 140 mg/ Dextrose 103.5 ml @ 207 mls/hr 1X ONCE IV Last administered on 02/09/18at 12:26; Start 02/09/18 at 12:00; Stop 02/09/18 at 12 :29; Status DC Lubiprostone (Amitiza) 8 mcg BIDWMEALS PO Last administered on 02/13/18at 18:38 ; Start 02/09/18 at 17:00 Gentamicin Sulfate 1 each 1X ONCE MC Last administered on 02/11/18at 06:00; Start 02/11/18 at 06:00; Stop 02/11/18 at 06:01; Status DC Hydromorphone HCl (Dilaudid) 2 mg 1X ONCE IV ; Start 02/10/18 at 10:30; Stop 02/10/18 at 10:31; Status DC Lidocaine HCl (Xylocaine-Mpf 2% Vial) 2 ml STK-MED ONCE .ROUTE ; Start at 09:00; Stop 02/10/18 at 13:19; Status DC Alteplase, Recombinant (Cathflo) 2 mg 1X ONCE INT CAT Last administered on at 22:18; Start 02/10/18 at 21:30; Stop 02/10/18 at 21:31; Status DC Silver Sulfadiazine (Silvadene) 25 susanna STK-MED ONCE TP ; Start 02/11/18 at 05: 56; Stop 02/11/18 at 06:57; Status DC Lidocaine HCl (Xylocaine 1% Pf 30ml Vial) 30 ml STK-MED ONCE .ROUTE ; Start at 05:57; Stop 02/11/18 at 06:58; Status DC Ondansetron HCl (Zofran) 4 mg PRN Q6HRS PRN IV NAUSEA/VOMITING; Start at 07:15; Stop 02/11/18 at 12:42; Status DC Fentanyl Citrate (Fentanyl 2ml Vial) 25 mcg PRN Q5MIN PRN IV MILD PAIN; Start 02/11/18 at 07:15; Stop 02/11/18 at 12:39; Status DC Fentanyl Citrate (Fentanyl 2ml Vial) 50 mcg PRN Q5MIN PRN IV MODERATE TO SEVERE PAIN; Start 02/11/18 at 07:15; Stop 02/11/18 at 12:40; Status DC Morphine Sulfate (Morphine Sulfate) 1 mg PRN Q10MIN PRN IV SEVERE PAIN; Start 02/11/18 at 07:15; Stop 02/11/18 at 12:41; Status DC Ringer's Solution 1,000 ml @ 30 mls/hr Q24H IV ; Start 02/11/18 at 07:15; Stop 02/11/18 at 19:14; Status Cancel Lidocaine HCl (Xylocaine-Mpf 1% 2ml Vial) 2 ml PRN 1X PRN ID PRIOR TO IV START ; Start 02/11/18 at 07:15; Stop 02/11/18 at 12:40; Status DC Hydromorphone HCl (Dilaudid) 0.5 mg PRN Q10MIN PRN IV SEV PAIN, Second choice; Start 02/11/18 at 07:15; Stop 02/11/18 at 12:40; Status DC Prochlorperazine Edisylate (Compazine) 5 mg PACU PRN PRN IV NAUSEA, MRX1; Start 02/11/18 at 07:15; Stop 02/11/18 at 12:42; Status DC Sodium Chloride 1,000 ml @ 75 mls/hr [id number] IV Last administered on at 00:23; Start 02/11/18 at 07:30; Stop 02/13/18 at 09:35; Status DC Propofol 20 ml @ As Directed STK-MED ONCE IV ; Start 02/11/18 at 07:20; Stop 02/11/18 at 07:21; Status DC Dexamethasone Sodium Phosphate (Decadron) 20 mg STK-MED ONCE .ROUTE ; Start at 07:20; Stop 02/11/18 at 07:21; Status DC Famotidine (Pepcid Vial) 20 mg STK-MED ONCE .ROUTE ; Start 02/11/18 at 07:20; Stop 02/11/18 at 07:21; Status DC Lidocaine HCl (Lidocaine Pf 2% Vial) 5 ml STK-MED ONCE .ROUTE ; Start 02/11/18 at 07:20; Stop 02/11/18 at 07:21; Status DC Ondansetron HCl (Zofran) 4 mg STK-MED ONCE .ROUTE ; Start 02/11/18 at 07:20; Stop 02/11/18 at 07:21; Status DC Fentanyl Citrate (Fentanyl 2ml Vial) 100 mcg STK-MED ONCE .ROUTE ; Start at 07:20; Stop 02/11/18 at 07:21; Status DC Midazolam HCl (Versed) 2 mg STK-MED ONCE .ROUTE ; Start 02/11/18 at 07:21; Stop 02/11/18 at 07:22; Status DC Ephedrine Sulfate (ePHEDrine PF IN SALINE SYRINGE) 50 mg STK-MED ONCE IV ; Start 02/11/18 at 08:22; Stop 02/11/18 at 08:23; Status DC Desflurane (Suprane) 30 ml STK-MED ONCE IH ; Start 02/11/18 at 08:41; Stop at 08:42; Status DC Sodium Chloride 1,000 ml @ 1,000 mls/hr Q1H PRN IV hypotension; Start at 09:57; Stop 02/11/18 at 15:56; Status DC Albumin Human 200 ml @ 200 mls/hr 1X PRN PRN IV Hypotension; Start 02/11/18 at 10:00; Stop 02/11/18 at 15:59; Status DC Sodium Chloride 1,000 ml @ 400 mls/hr Q2H30M PRN IV PATENCY; Start 02/11/18 at 09:57; Stop 02/11/18 at 21:56; Status DC Info (PHARMACY MONITORING -- do not chart) 1 each PRN DAILY PRN MC SEE COMMENTS ; Start 02/11/18 at 10:00; Status UNV Info (PHARMACY MONITORING -- do not chart) 1 each PRN DAILY PRN MC SEE COMMENTS ; Start 02/11/18 at 10:00; Status UNV Lidocaine HCl (Xylocaine-Mpf 1% 2ml Vial) 2 ml 1X ONCE INJ ; Start 02/11/18 at 10:00; Stop 02/11/18 at 10:13; Status DC Gentamicin Sulfate 100 mg/ Dextrose 52.5 ml @ 105 mls/hr QTUTHSA IV Last administered on 02/13/18at 20:42; Start 02/11/18 at 16:00 Gentamicin Sulfate 1 each 1X ONCE MC ; Start 02/13/18 at 05:00; Stop at 05:00; Status DC Lidocaine HCl (Xylocaine-Mpf 2% Vial) 2 ml STK-MED ONCE .ROUTE ; Start at 13:22; Stop 02/11/18 at 13:23; Status DC Lidocaine HCl (Xylocaine-Mpf 2% Vial) 2 ml STK-MED ONCE .ROUTE ; Start at 14:00; Stop 02/12/18 at 08:48; Status DC Pantoprazole Sodium (Protonix) 40 mg DAILYAC PO Last administered on at 08:19; Start 02/12/18 at 16:00 Sodium Chloride 1,000 ml @ 1,000 mls/hr Q1H PRN IV hypotension; Start at 08:36; Stop 02/13/18 at 14:35; Status DC Info (PHARMACY MONITORING -- do not chart) 1 each PRN DAILY PRN MC SEE COMMENTS ; Start 02/13/18 at 08:45; Status UNV Info (PHARMACY MONITORING -- do not chart) 1 each PRN DAILY PRN MC SEE COMMENTS ; Start 02/13/18 at 08:45 Insulin Glargine (Lantus) 15 units QHS SQ ; Start 02/13/18 at 21:00; Stop at 13:04; Status DC Alteplase, Recombinant (Cathflo) 2 mg 1X ONCE INT CAT Last administered on at 19:00; Start 02/13/18 at 19:00; Stop 02/13/18 at 19:01; Status DC Insulin Human Lispro (HumaLOG) 0-9 UNITS TIDWMEALS SQ Last administered on at 17:53; Start 02/14/18 at 14:00 Dextrose (Dextrose 50%-Water Syringe) 12.5 gm PRN Q15MIN PRN IV SEE COMMENTS; Start 02/14/18 at 13:15 Active Scripts Active Percocet 10-325 Mg Tablet (Oxycodone/Acetaminophen) 1 Each Tablet 1 Tab PO Q4HRS Brilinta (Ticagrelor) 90 Mg Tablet 90 Mg PO BID 30 Days Morphine Sulfate Er (Morphine Sulfate) 15 Mg Tablet.er 15 Mg PO BID Reported Brilinta (Ticagrelor) 90 Mg Tablet 90 Mg PO BID Lidocaine 1 Each Adh..patch 1 Each TP PRN DAILY PRN Calcitriol 0.25 Mcg Capsule 1 Cap PO DAILY Tegretol (Carbamazepine) 200 Mg Tablet 1 Tab PO BID Tramadol Hcl 50 Mg Tablet 50 Mg PO Q4HRS PRN Lantus Solostar (Insulin Glargine,Hum.rec.anlog) 100 Unit/1 Ml Insuln.pen 22 Unit SQ QHS Diflucan (Fluconazole) 100 Mg Tablet 100 Mg PO PRN Carvedilol 3.125 Mg Tablet 12.5 Mg PO BID Erythromycin (Erythromycin Base) 250 Mg Capsule.dr 250 Mg PO BID Cardizem Cd (Diltiazem Hcl) 180 Mg Cap.er.24h 120 Mg PO DAILY Amiodarone Hcl 200 Mg Tablet 1 Tab PO DAILY Nystatin 15 Gm Powder 1 Susanna TP PRN BID PRN Proventil Hfa Inhaler (Albuterol Sulfate) 6.7 Gm Hfa.aer.ad 2 Puff IH BID PRN Zofran (Ondansetron Hcl) 4 Mg Tablet 4 Mg PO Q6-8HRS PRN Nephro-Shabbir Tablet (Folic Acid/Vitamin B Comp W-C) 0.8 Mg Tablet 1 Tab PO DAILY Tricor (Fenofibrate Nanocrystallized) 145 Mg Tablet 1 Tab PO HS Lipitor (Atorvastatin Calcium) 80 Mg Tablet 80 Mg PO HS Niacin 500 Mg Tablet 500 Mg PO HS Novolog (Insulin Aspart) 100 Unit/1 Ml Cartridge 0 SQ TIDAC sliding scale Aspirin 325 Mg Tablet 325 Mg PO DAILY Furosemide 80 Mg Tablet 80 Mg PO BID Docusate Sodium 100 Mg Capsule 1 Cap PO PRN PRN Nitrostat (Nitroglycerin) 0.4 Mg Tab.subl 0.4 Mg SL PRN Q5MIN PRN Take as needed for chest pain Vitals/I & O Vital Sign - Last 24 Hours 02/14/18 02/14/18 02/14/18 02/14/18 12:25 15:00 17:34 17:35 Temp 97.7 97.7 Pulse 74 74 Resp 20 B/P (MAP) 132/60 (84) 132/60 Pulse Ox 98 98 98 O2 Delivery Nasal Cannula Nasal Cannula Nasal Cannula O2 Flow Rate 2.0 2.0 2.0 02/14/18 02/14/18 02/14/1802/14/18 19:00 20:00 20:16 22:31 Temp 98.1 98.1 Pulse 71 Resp 16 B/P (MAP) 128/59 (82) Pulse Ox 100 O2 Delivery Room Air Nasal Cannula Room Air Room Air O2 Flow Rate 2.0 02/14/18 02/15/18 02/15/18 02/15/18 23:00 00:12 03:00 04:02 Temp 98.0 98.0 98.0 98.0 Pulse 62 73 Resp 18 18 B/P (MAP) 110/49 (69) 134/57 (82) Pulse Ox 98 98 O2 Delivery Room Air Room Air Nasal Cannula Room Air O2 Flow Rate 2.0 02/15/18 02/15/18 02/15/18 02/15/18 07:00 08:00 08:19 08:20 Temp 97.8 97.8 Pulse 73 73 73 Resp 18 B/P (MAP) 157/50 (85) 157/50 157/50 Pulse Ox 100 O2 Delivery Nasal Cannula Nasal Cannula O2 Flow Rate 2.0 2.0 02/15/18 02/15/18 02/15/18 02/15/18 08:20 08:21 08:29 08:59 Pulse 73 Resp 20 20 20 B/P (MAP) 157/50 Pulse Ox 100 100 100 O2 Delivery Nasal Cannula Nasal Cannula Nasal Cannula O2 Flow Rate 2.0 2.0 2.0 Intake and Output 02/14/18 02/14/18 02/15/18 15:00 23:00 07:00 Intake Total 200 ml 1200 ml 220 ml Output Total 0 ml Balance 200 ml 1200 ml 220 ml DAVID PINTO MD Feb 15, 2018 11:13
[2018-02-15] MEDS: GENTAMICIN PER PHARMACY. MC PRN (12:09)
--- NOTE | 2018-02-15 12:18 | PDOC ---
Renal-Progress Notes Subjective Notes Notes CANT SEE LAST SEVERAL DAYS History of Present Illness Hx of present illness SLOW TO IMPROVE Vitals Vitals Vital Signs Date Time Temp Pulse Resp B/P (MAP) Pulse Ox O2 Delivery O2 Flow Rate FiO2 02/15/18 11:13 97.7 72 18 144/56 (85) 100 Nasal Cannula 2.0 97.7 Weight Weight [ ] I.O. Intake and Output Intake and Output 02/15/18 07:00 Intake Total 1620 ml Output Total 0 ml Balance 1620 ml Intake Oral 1220 ml IV Total 400 ml Output Urine Total 0 ml # Bowel Movements 2 Labs Labs Laboratory Tests Test 02/14/18 16:30 02/14/18 20:21 02/15/18 04:00 02/15/18 07:06 Glucose (Fingerstick) 221 mg/dL (70-99) 140 mg/dL (70-99) 92 mg/dL (70-99) White Blood Count 12.9 x10^3/uL (4.0-11.0) Red Blood Count 2.44 x10^6/uL (3.50-5.40) Hemoglobin 7.8 g/dL (12.0-15.5) Hematocrit 23.3 % (36.0-47.0) Mean Corpuscular Volume 95 fL (79-100) Mean Corpuscular Hemoglobin 32 pg (25-35) Mean Corpuscular Hemoglobin Concent 34 g/dL (31-37) Red Cell Distribution Width 18.1 % (11.5-14.5) Platelet Count 262 x10^3/uL (140-400) Neutrophils (%) (Auto) 82 % (31-73) Lymphocytes (%) (Auto) 9 % (24-48) Monocytes (%) (Auto) 8 % (0-9) Eosinophils (%) (Auto) 1 % (0-3) Basophils (%) (Auto) 1 % (0-3) Neutrophils # (Auto) 10.6 x10^3uL (1.8-7.7) Lymphocytes # (Auto) 1.1 x10^3/uL (1.0-4.8) Monocytes # (Auto) 1.0 x10^3/uL (0.0-1.1) Eosinophils # (Auto) 0.1 x10^3/uL (0.0-0.7) Basophils # (Auto) 0.1 x10^3/uL (0.0-0.2) Sodium Level 140 mmol/L (136-145) Potassium Level 3.6 mmol/L (3.5-5.1) Chloride Level 102 mmol/L (98-107) Carbon Dioxide Level 31 mmol/L (21-32) Anion Gap 7 (6-14) Blood Urea Nitrogen 10 mg/dL (7-20) Creatinine 3.6 mg/dL (0.6-1.0) Estimated GFR (Cockcroft-Gault) 13.3 Glucose Level 107 mg/dL (70-99) Calcium Level 8.0 mg/dL (8.5-10.1) Test 02/15/18 11:29 Glucose (Fingerstick) 124 mg/dL (70-99) Micro Micro Microbiology 02/06/18 Blood Culture - Final, Complete NO GROWTH AFTER 5 DAYS 01/27/18 Anaerobic/Aerobic Culture - Final, Complete 01/27/18 Anaerobic Culture Result 1 (ROSALIND) - Final, Complete 01/27/18 Aerobic Culture - Final, Complete 01/27/18 Aerobic Culture Result 1 (ROSALIND) - Final, Complete 01/27/18 Antimicrobic Susceptibility - Final, Complete 01/27/18 Gram Stain - Final, Complete 01/27/18 Gram Stain Result 1 (ROSALIND) - Final, Complete 01/27/18 Gram Stain Result 2 (ROSALIND) - Final, Complete Review of Systems Constitutional: yes: weakness, alert, oriented Ears/Nose/Throat: Yes: no symptom reported Eyes: Yes: no symptom reported Pulmonary: Yes no symptom reported Cardiovascular: Yes no symptom reported Gastrointestional: Yes: no symptom reported Genitourinary: Yes: no symptom reported Musculoskeletal: Yes: leg pain Skin: Yes color change Psychiatric/Neurological: Yes: no symptom reported Physical Exam General Appearance: no apparent distress Respiratory: bilateral CTA Heart: [id number] Abdomen: soft, bowel sounds present Genitourinary: bladder flat Extremities: pulses present Musculoskeletal: low back pain (and neck pain), Osteoarthritis Assessment Assessment IMP ESRD-ON PD BUT HAS FUNCTIONING RIGHT ARM AVF ANEMIA DM II HTN PAD R LE CELLULITIS LOSS OF VISION-?RETINAL BLEED PLAN HD TOMORROW BACK TO PD WHEN HOME ANTIBIOTICS WOUND CARE OPTHO TO SEE PT WILL FOLLOW CHARLY ZAVALA MD Feb 15, 2018 12:18
[2018-02-15] MEDS ORDERED: HYDROmorphone 2 MG/ML VIAL IV ONE (14:00)
--- NOTE | 2018-02-15 14:52 | PDOC ---
PROGRESS NOTES Assessment Assessment Bilateral vision decrease x 2 weeks, worse x 4 days before admission. Diabetic retinopathy with retinal hemorrhage. Renal failure. DM x 30 years. CAD, s/p CABG. Anemia. Left BKA. Right thigh wounds. Right fem-pop bypass. RECOMMENDATIONS/PLAN: Continue ASA daily. Continue Lipitor HS. Control hyperglycemia. Treat medical diseases. Transfer to hospital with inpatient Ophthalmology services such as [facility], , etc. per suggestion of [facility] ophthalmology. Past Medical History Cardiovascular: AFib, CAD, CHF, HTN, OK, Hyperlipidemia, Other (heart murmur, peripheral vascular disease, deep venous thrombosis) Pulmonary: Asthma, Bronchitis, COPD, Pneumonia, Other (sleep apnea) CENTRAL NERVOUS SYSTEM: Peripheral neuropathy GI: Irritable bowel disease, Peptic Ulcer disease, Other (C. difficile) Psych: Anxiety, Depression Musculoskeletal: low back pain (and neck pain), Osteoarthritis Rheumatologic: Fibromyalgia Renal/: Chronic renal failure (dialysis) Endocrine: Diabetes Dermatology: Other (various wounds, MRSA, VRE) Past Surgical History CABG, Cataract Removal, Hysterectomy, Other (Arnold-Chiari malformation repair, left below the knee application, right femoropopliteal bypass, arteriovenous shunt, coronary stent, right second and third toes amputations, arthroscopic knee surgery) Family History Cancer, CAD, DM Social History , quit smoking, rare alcohol, disabled, gets around in a wheelchair ALLERGY: Reviewed. MEDICATIONS: Refer to MAR REVIEW OF SYSTEMS: Constitutional: No malnutrition, weight loss, cachexia. Head: No traumatic brain or head injury. Skin: No edema, or rash. Ear: No infection. Eyes: Vision loss. Nose: No bleeding or purulent discharges. Hearing: No hearing decrease. Neck: No injury. Breast: No history of cancer, masses, or discharges. Cardiac: CAD, s/p CABG, HLD Pulmonary: No COPD.. GI: No GI Ulcer, GI bleeding. Urinary/genital: Renal failure. Endocrine: Diabetes Mellitus. Skeletomuscular: No muscular atrophy, deformity. Neurological: see HP. Psychiatric: Denies drug use/abuse. Otherwise, not [id number] review of systems. PHYSICAL EXAMINATION: General appearance in no acute distress. HEENT: Normocephalic and nontraumatic. Eyes, nose, ears, and throat are unremarkable. Neck is supple. No lymphadenopathy. No Crepitus. Cardiovascular: S1, S2, regular rate and rhythm. Pulmonary: Clear to auscultation bilaterally. Abdomen: Bowel sounds are positive. Abdomen is soft, nontender, and nondistended. Extremities: No rash, lesions. No restriction of range of motion NEUROLOGICAL EXAMINATION: Awake. Oriented to time, place and person. PERRL. EOMI. Can see items within 2 feet. CN: no focal findings. Muscle tone: within normal. Muscle strength: 4+ DTR: 2- UE and right LE. Plantar reflex: Neutral response on right side. Left BKA. Gait: Unable to walk. Sensory exam: no abnormal findings. No acute cerebellar signs elicited. F-T-N test fine. Objective Objective Vital Signs Date Time Temp Pulse Resp B/P (MAP) Pulse Ox O2 Delivery O2 Flow Rate FiO2 02/15/18 14:08 20 100 Nasal Cannula 2.0 02/15/18 11:13 97.7 72 144/56 (85) 97.7 Intake and Output 02/15/18 07:00 Intake Total 1620 ml Output Total 0 ml Balance 1620 ml Intake Oral 1220 ml IV Total 400 ml Output Urine Total 0 ml # Bowel Movements 2 Vitals Signs Vitals VS - Last 72 Hours, by Label Date Time Temp Pulse Resp B/P (MAP) Pulse Ox O2 Delivery O2 Flow Rate FiO2 02/15/18 14:08 20 100 Nasal Cannula 2.0 02/15/18 12:20 20 100 Nasal Cannula 2.0 02/15/18 11:13 97.7 72 18 144/56 (85) 100 Nasal Cannula 2.0 97.7 02/15/18 08:59 20 100 Nasal Cannula 2.0 02/15/18 08:29 20 100 Nasal Cannula 2.0 02/15/18 08:21 73 157/50 02/15/18 08:20 20 100 Nasal Cannula 2.0 02/15/18 08:20 73 157/50 02/15/18 08:19 73 157/50 02/15/18 08:00 Nasal Cannula 2.0 02/15/18 07:00 97.8 73 18 157/50 (85) 100 Nasal Cannula 2.0 97.8 02/15/18 04:02 Room Air 02/15/18 03:00 98.0 73 18 134/57 (82) 98 Nasal Cannula 2.0 98.0 02/14/18 23:00 98.0 62 18 110/49 (69) 98 Room Air 98.0 02/14/18 22:31 Room Air 02/14/18 20:16 Room Air 02/14/18 20:00 Nasal Cannula 2.0 02/14/18 19:00 98.1 71 16 128/59 (82) 100 Room Air 98.1 02/14/18 17:35 74 132/60 02/14/18 17:34 98 Nasal Cannula 2.0 02/14/18 15:00 97.7 74 20 132/60 (84) 98 Nasal Cannula 2.0 97.7 02/14/18 12:25 98 Nasal Cannula 2.0 02/14/18 10:43 97.8 72 20 120/53 (75) 98 Nasal Cannula 2.0 97.8 02/14/18 09:22 73 147/62 02/14/18 09:22 98 Nasal Cannula 2.0 02/14/18 09:21 73 147/62 02/14/18 09:21 73 147/62 02/14/18 09:19 98 Nasal Cannula 2.0 02/14/18 09:18 98 Nasal Cannula 2.0 02/14/18 08:00 Nasal Cannula 2.0 02/14/18 07:00 97.8 73 20 147/62 (90) 98 Nasal Cannula 2.0 97.8 Laboratory Laboratory Laboratory Tests Test 02/14/18 16:30 02/14/18 20:21 02/15/18 04:00 02/15/18 07:06 Glucose (Fingerstick) 221 mg/dL (70-99) 140 mg/dL (70-99) 92 mg/dL (70-99) White Blood Count 12.9 x10^3/uL (4.0-11.0) Red Blood Count 2.44 x10^6/uL (3.50-5.40) Hemoglobin 7.8 g/dL (12.0-15.5) Hematocrit 23.3 % (36.0-47.0) Mean Corpuscular Volume 95 fL (79-100) Mean Corpuscular Hemoglobin 32 pg (25-35) Mean Corpuscular Hemoglobin Concent 34 g/dL (31-37) Red Cell Distribution Width 18.1 % (11.5-14.5) Platelet Count 262 x10^3/uL (140-400) Neutrophils (%) (Auto) 82 % (31-73) Lymphocytes (%) (Auto) 9 % (24-48) Monocytes (%) (Auto) 8 % (0-9) Eosinophils (%) (Auto) 1 % (0-3) Basophils (%) (Auto) 1 % (0-3) Neutrophils # (Auto) 10.6 x10^3uL (1.8-7.7) Lymphocytes # (Auto) 1.1 x10^3/uL (1.0-4.8) Monocytes # (Auto) 1.0 x10^3/uL (0.0-1.1) Eosinophils # (Auto) 0.1 x10^3/uL (0.0-0.7) Basophils # (Auto) 0.1 x10^3/uL (0.0-0.2) Sodium Level 140 mmol/L (136-145) Potassium Level 3.6 mmol/L (3.5-5.1) Chloride Level 102 mmol/L (98-107) Carbon Dioxide Level 31 mmol/L (21-32) Anion Gap 7 (6-14) Blood Urea Nitrogen 10 mg/dL (7-20) Creatinine 3.6 mg/dL (0.6-1.0) Estimated GFR (Cockcroft-Gault) 13.3 Glucose Level 107 mg/dL (70-99) Calcium Level 8.0 mg/dL (8.5-10.1) Test 02/15/18 11:29 Glucose (Fingerstick) 124 mg/dL (70-99) Microbiology 02/06/18 Blood Culture - Final, Complete NO GROWTH AFTER 5 DAYS 01/27/18 Anaerobic/Aerobic Culture - Final, Complete 01/27/18 Anaerobic Culture Result 1 (ROSALIND) - Final, Complete 01/27/18 Aerobic Culture - Final, Complete 01/27/18 Aerobic Culture Result 1 (ROSALIND) - Final, Complete 01/27/18 Antimicrobic Susceptibility - Final, Complete 01/27/18 Gram Stain - Final, Complete 01/27/18 Gram Stain Result 1 (ROSALIND) - Final, Complete 01/27/18 Gram Stain Result 2 (ROSALIND) - Final, Complete Medication Medications Current Medications Hydromorphone HCl (Dilaudid) 2 mg 1X ONCE IV Last administered on 02/15/18at 14:08; Start 02/15/18 at 14:00; Stop 02/15/18 at 14:01; Status DC Comment Review of Relevant I have reviewed the following items bert (where applicable) has been applied. KRAIG HUNT MD Feb 15, 2018 14:52
[2018-02-15 14:55] VITALS: BP 140/58
--- NOTE | 2018-02-15 14:59 | PDOC ---
PROGRESS NOTES Subjective Subjective Pt resting comfortably in bed. Has lost her vision almost completely. Dr. Jones saw today, she will not be transferring to [facility] as thought previously. She is planning to go to [facility] tomorrow. Objective Objective Vital Signs Date Time Temp Pulse Resp B/P (MAP) Pulse Ox O2 Delivery O2 Flow Rate FiO2 02/15/18 14:08 20 100 Nasal Cannula 2.0 02/15/18 11:13 97.7 72 144/56 (85) 97.7 Intake and Output 02/15/18 07:00 Intake Total 1620 ml Output Total 0 ml Balance 1620 ml Intake Oral 1220 ml IV Total 400 ml Output Urine Total 0 ml # Bowel Movements 2 Physical Exam Physical Exam Awake, alert, in no apparent distress Right groin wound with good pink granulation tissue throughout, with small area with sloughed tissue on superior lateral wound edge Great pulse to medial right knee, lower leg incision clean dry and intact, healing well. Assessment Assessment Problems Medical Problems: (1) Chronic renal failure Status: Acute Plan Plan of Care S/p right groin wound infection -> muscle flap on 01/25/18 with following wound debridements, most recent on 02/11/18. - Graft patent with pulse. Continue dual antiplatelet therapy and statin therapy. - Continue wound vac care to right groin. Wound today showing great improvement. Discussed wound care instructions with WC RN's. Pt is planning on going to [facility] tomorrow where they are to continue wound vac care with [employer] vac. She will need to follow up with Dr. Reina in our office on 03/04/18 at 12:30. Comment Review of Relevant I have reviewed the following items bert (where applicable) has been applied. Labs Laboratory Tests Test 02/13/18 16:51 02/13/18 21:10 02/14/18 06:10 02/14/18 07:39 Glucose (Fingerstick) 116 mg/dL (70-99) 133 mg/dL (70-99) 90 mg/dL (70-99) White Blood Count 13.6 x10^3/uL (4.0-11.0) Red Blood Count 2.49 x10^6/uL (3.50-5.40) Hemoglobin 7.8 g/dL (12.0-15.5) Hematocrit 23.8 % (36.0-47.0) Mean Corpuscular Volume 96 fL (79-100) Mean Corpuscular Hemoglobin 31 pg (25-35) Mean Corpuscular Hemoglobin Concent 33 g/dL (31-37) Red Cell Distribution Width 17.9 % (11.5-14.5) Platelet Count 302 x10^3/uL (140-400) Neutrophils (%) (Auto) 84 % (31-73) Lymphocytes (%) (Auto) 6 % (24-48) Monocytes (%) (Auto) 9 % (0-9) Eosinophils (%) (Auto) 1 % (0-3) Basophils (%) (Auto) 0 % (0-3) Neutrophils # (Auto) 11.5 x10^3uL (1.8-7.7) Lymphocytes # (Auto) 0.8 x10^3/uL (1.0-4.8) Monocytes # (Auto) 1.2 x10^3/uL (0.0-1.1) Eosinophils # (Auto) 0.1 x10^3/uL (0.0-0.7) Basophils # (Auto) 0.0 x10^3/uL (0.0-0.2) Sodium Level 138 mmol/L (136-145) Potassium Level 3.8 mmol/L (3.5-5.1) Chloride Level 102 mmol/L (98-107) Carbon Dioxide Level 32 mmol/L (21-32) Anion Gap 4 (6-14) Blood Urea Nitrogen 8 mg/dL (7-20) Creatinine 2.8 mg/dL (0.6-1.0) Estimated GFR (Cockcroft-Gault) 17.7 Glucose Level 112 mg/dL (70-99) Calcium Level 8.2 mg/dL (8.5-10.1) Test 02/14/18 11:02 02/14/18 16:30 02/14/18 20:21 02/15/18 04:00 Glucose (Fingerstick) 128 mg/dL (70-99) 221 mg/dL (70-99) 140 mg/dL (70-99) White Blood Count 12.9 x10^3/uL (4.0-11.0) Red Blood Count 2.44 x10^6/uL (3.50-5.40) Hemoglobin 7.8 g/dL (12.0-15.5) Hematocrit 23.3 % (36.0-47.0) Mean Corpuscular Volume 95 fL (79-100) Mean Corpuscular Hemoglobin 32 pg (25-35) Mean Corpuscular Hemoglobin Concent 34 g/dL (31-37) Red Cell Distribution Width 18.1 % (11.5-14.5) Platelet Count 262 x10^3/uL (140-400) Neutrophils (%) (Auto) 82 % (31-73) Lymphocytes (%) (Auto) 9 % (24-48) Monocytes (%) (Auto) 8 % (0-9) Eosinophils (%) (Auto) 1 % (0-3) Basophils (%) (Auto) 1 % (0-3) Neutrophils # (Auto) 10.6 x10^3uL (1.8-7.7) Lymphocytes # (Auto) 1.1 x10^3/uL (1.0-4.8) Monocytes # (Auto) 1.0 x10^3/uL (0.0-1.1) Eosinophils # (Auto) 0.1 x10^3/uL (0.0-0.7) Basophils # (Auto) 0.1 x10^3/uL (0.0-0.2) Sodium Level 140 mmol/L (136-145) Potassium Level 3.6 mmol/L (3.5-5.1) Chloride Level 102 mmol/L (98-107) Carbon Dioxide Level 31 mmol/L (21-32) Anion Gap 7 (6-14) Blood Urea Nitrogen 10 mg/dL (7-20) Creatinine 3.6 mg/dL (0.6-1.0) Estimated GFR (Cockcroft-Gault) 13.3 Glucose Level 107 mg/dL (70-99) Calcium Level 8.0 mg/dL (8.5-10.1) Test 02/15/18 07:06 02/15/18 11:29 Glucose (Fingerstick) 92 mg/dL (70-99) 124 mg/dL (70-99) Laboratory Tests Test 02/14/18 16:30 02/14/18 20:21 02/15/18 04:00 02/15/18 07:06 Glucose (Fingerstick) 221 mg/dL (70-99) 140 mg/dL (70-99) 92 mg/dL (70-99) White Blood Count 12.9 x10^3/uL (4.0-11.0) Red Blood Count 2.44 x10^6/uL (3.50-5.40) Hemoglobin 7.8 g/dL (12.0-15.5) Hematocrit 23.3 % (36.0-47.0) Mean Corpuscular Volume 95 fL (79-100) Mean Corpuscular Hemoglobin 32 pg (25-35) Mean Corpuscular Hemoglobin Concent 34 g/dL (31-37) Red Cell Distribution Width 18.1 % (11.5-14.5) Platelet Count 262 x10^3/uL (140-400) Neutrophils (%) (Auto) 82 % (31-73) Lymphocytes (%) (Auto) 9 % (24-48) Monocytes (%) (Auto) 8 % (0-9) Eosinophils (%) (Auto) 1 % (0-3) Basophils (%) (Auto) 1 % (0-3) Neutrophils # (Auto) 10.6 x10^3uL (1.8-7.7) Lymphocytes # (Auto) 1.1 x10^3/uL (1.0-4.8) Monocytes # (Auto) 1.0 x10^3/uL (0.0-1.1) Eosinophils # (Auto) 0.1 x10^3/uL (0.0-0.7) Basophils # (Auto) 0.1 x10^3/uL (0.0-0.2) Sodium Level 140 mmol/L (136-145) Potassium Level 3.6 mmol/L (3.5-5.1) Chloride Level 102 mmol/L (98-107) Carbon Dioxide Level 31 mmol/L (21-32) Anion Gap 7 (6-14) Blood Urea Nitrogen 10 mg/dL (7-20) Creatinine 3.6 mg/dL (0.6-1.0) Estimated GFR (Cockcroft-Gault) 13.3 Glucose Level 107 mg/dL (70-99) Calcium Level 8.0 mg/dL (8.5-10.1) Test 02/15/18 11:29 Glucose (Fingerstick) 124 mg/dL (70-99) Microbiology 10/13/18 Blood Culture - Final, Complete NO GROWTH AFTER 5 DAYS 01/27/18 Anaerobic/Aerobic Culture - Final, Complete 01/27/18 Anaerobic Culture Result 1 (ROSALIND) - Final, Complete 01/27/18 Aerobic Culture - Final, Complete 01/27/18 Aerobic Culture Result 1 (ROSALIND) - Final, Complete 01/27/18 Antimicrobic Susceptibility - Final, Complete 01/27/18 Gram Stain - Final, Complete 01/27/18 Gram Stain Result 1 (ROSALIND) - Final, Complete 01/27/18 Gram Stain Result 2 (ROSALIND) - Final, Complete Medications Current Medications Hydromorphone HCl (Dilaudid) 2 mg 1X ONCE IV Last administered on 01/26/18at 22 :39; Start 01/26/18 at 22:00; Stop 01/26/18 at 22:01; Status DC Vancomycin HCl (Vanco Per Pharmacy) 1 each PRN DAILY PRN MC SEE COMMENTS Last administered on 01/31/18at 17:20; Start 01/26/18 at 22:45; Stop 02/01/18 at 11:41 ; Status DC Vancomycin HCl 1.75 gm/Sodium Chloride 500 ml @ 250 mls/hr 1X ONCE IV Last administered on 01/26/18at 23:53; Start 01/26/18 at 23:00; Stop 01/27/18 at 00:59 ; Status DC Ondansetron HCl (Zofran) 4 mg PRN Q8HRS PRN IV NAUSEA/VOMITING 1ST CHOICE; Start 01/26/18 at 23:15; Stop 01/27/18 at 23:14; Status DC Sodium Chloride 1,000 ml @ 75 mls/hr [id number] IV Last administered on at 00:39; Start 01/26/18 at 23:30; Stop 01/27/18 at 23:29; Status DC Pharmacy Consult (C.diff Med Screen By Rx) 1 each 1X ONCE MC ; Start 01/27/18 at 01:00; Stop 01/27/18 at 01:01; Status Cancel Influenza Virus Vaccine (Afluria Trivalent [id number] Syringe) 0.5 ml ONCE ONCE VAX IM Last administered on 01/27/18at 09:00; Start 01/27/18 at 09:00; Stop 01/27/18 at 09:01; Status DC Vancomycin HCl (Vancomycin Random Level) 1 each 1X ONCE MC Last administered on 01/28/18at 05:00; Start 01/28/18 at 05:00; Stop 01/28/18 at 05:01; Status DC Hydromorphone HCl (Dilaudid) 1 mg PRN Q3HRS PRN IV SEVERE PAIN Last administered on 02/15/18at 08:29; Start 01/27/18 at 03:30 Ondansetron HCl (Zofran) 4 mg PRN Q6HRS PRN IV NAUSEA/VOMITING; Start 01/27/18 at 10:45; Stop 01/27/18 at 18:00; Status DC Fentanyl Citrate (Fentanyl 2ml Vial) 25 mcg PRN Q5MIN PRN IV MILD PAIN; Start 01/27/18 at 10:45; Stop 01/27/18 at 18:00; Status DC Fentanyl Citrate (Fentanyl 2ml Vial) 50 mcg PRN Q5MIN PRN IV MODERATE TO SEVERE PAIN; Start 01/27/18 at 10:45; Stop 01/27/18 at 18:00; Status DC Morphine Sulfate (Morphine Sulfate) 1 mg PRN Q10MIN PRN IV SEVERE PAIN Last administered on 01/27/18at 16:28; Start 01/27/18 at 10:45; Stop 01/27/18 at 18:00 ; Status DC Ringer's Solution 1,000 ml @ 30 mls/hr Q24H IV Last administered on 01/27/18at 10:35; Start 01/27/18 at 10:35; Stop 01/27/18 at 19:36; Status DC Lidocaine HCl (Xylocaine-Mpf 1% 2ml Vial) 2 ml 1X PRN PRN ID IV START; Start 01/27/18 at 10:45; Stop 01/27/18 at 18:00; Status DC Hydromorphone HCl (Dilaudid) 0.5 mg PRN Q10MIN PRN IV SEV PAIN, Second choice Last administered on 01/27/18at 15:59; Start 01/27/18 at 10:45; Stop 01/27/18 at 18:00; Status DC Prochlorperazine Edisylate (Compazine) 5 mg PACU PRN PRN IV NAUSEA, MRX1; Start 01/27/18 at 10:45; Stop 01/27/18 at 18:00; Status DC Amiodarone HCl (Cordarone) 200 mg DAILY PO Last administered on 02/15/18 08: 21; Start 01/27/18 at 12:30 Aspirin (Anthony Aspirin) 325 mg DAILY PO Last administered on 01/28/18 09:13; Start 01/27/18 at 12:30; Stop 01/28/18 at 14:26; Status DC Carbamazepine (TEGretol) 200 mg BID PO Last administered on 02/15/18 08:20; Start 01/27/18 at 12:30 Carvedilol (Coreg) 12.5 mg BIDWMEALS PO Last administered on 02/15/18 08:20; Start 01/27/18 at 12:30 Vitamin B Complex/ Vitamin C (Melly-Shabbir) 1 tab DAILY PO Last administered on 08:19; Start 01/27/18 at 12:30 Furosemide (Lasix) 80 mg [id number] PO Last administered on 02/15/18at 11:52; Start 01/27/18 at 12:30 Insulin Glargine (Lantus) 22 units QHS SQ Last administered on 02/12/18 21:25 ; Start 01/27/18 at 21:00; Stop 02/13/18 at 09:35; Status DC Morphine Sulfate (Ms Contin) 15 mg BID PO Last administered on 02/15/18 08:20 ; Start 01/27/18 at 12:30 Nitroglycerin (Nitrostat) 0.4 mg PRN Q5MIN PRN SL CHEST PAIN; Start 01/27/18 at 12:00 Nystatin (Nystop) 1 susanna PRN BID PRN TP SKIN BREAKDOWN; Start 01/27/18 at 12:00 Tramadol HCl (Ultram) 50 mg PRN Q4HRS PRN PO HEADACHE Last administered on 09:19; Start 01/27/18 at 12:00 Non-Formulary Medication (Albuterol Sulfate (Proventil Hfa Inhaler)) 2 puff BID PRN IH FOR ASTHMA; Start 01/27/18 at 12:00; Status UNV Atorvastatin Calcium (Lipitor) 80 mg QHS PO Last administered on 10/21/18at 20: 16; Start 01/27/18 at 21:00 Calcitriol (Rocaltrol) 0.25 mcg DAILY PO Last administered on 02/15/18at 08:22 ; Start 01/27/18 at 12:30 Diltiazem HCl (Cardizem 24hr Cd) 120 mg DAILY PO Last administered on at 08:19; Start 01/27/18 at 12:30 Erythromycin (E-Mycin) 250 mg BID PO Last administered on 02/15/18at 08:19; Start 01/27/18 at 21:00 Fenofibrate (Lofibra) 134 mg QHS PO Last administered on 02/14/18at 20:16; Start 01/27/18 at 21:00 Non-Formulary Medication (Fluconazole (Diflucan)) 100 mg PRN PO ; Start at 12:00; Status UNV Lidocaine (Lidoderm) 1 patch PRN DAILY PRN TD PAIN; Start 01/27/18 at 09:00 Niacin (Slo-Niacin) 500 mg QHS PO Last administered on 02/14/18at 20:16; Start 01/27/18 at 21:00 Ondansetron HCl (Zofran Odt) 4 mg PRN Q6HRS PRN PO NAUSEA/VOMITING Last administered on 02/13/18at 21:54; Start 01/27/18 at 12:15 Miscellaneous (Lidoderm Patch Removal) 1 ea QHS MC Last administered on at 20:17; Start 01/27/18 at 21:00 Albuterol Sulfate (Ventolin Neb Soln) 2.5 mg PRN BID PRN NEB SHORTNESS OF BREATH Last administered on 01/27/18at 21:59; Start 01/27/18 at 12:30 Lidocaine HCl (Lidocaine 1% 50ml Vial) 50 ml 1X ONCE INJ Last administered on 01/27/18at 14:06; Start 01/27/18 at 12:45; Stop 01/27/18 at 12:46; Status DC Hydromorphone HCl (Dilaudid) 2 mg STK-MED ONCE .ROUTE ; Start 01/27/18 at 12:36 ; Stop 01/27/18 at 12:38; Status DC Propofol 20 ml @ As Directed STK-MED ONCE IV ; Start 01/27/18 at 12:38; Stop at 12:39; Status DC Bacitracin [id number] unit/Sodium Chloride 3,000 ml @ 0 mls/hr 1X ONCE IR ; Start 01/27/18 at 13:15; Stop 01/27/18 at 13:16; Status Cancel Dexamethasone Sodium Phosphate (Decadron) 20 mg STK-MED ONCE .ROUTE ; Start 01/27/18 at 13:11; Stop 01/27/18 at 13:12; Status DC Ondansetron HCl (Zofran) 4 mg STK-MED ONCE .ROUTE ; Start 01/27/18 at 13:11; Stop 01/27/18 at 13:12; Status DC Sevoflurane (Ultane) 30 ml STK-MED ONCE IH ; Start 01/27/18 at 13:11; Stop 01/27 at 13:12; Status DC Bacitracin (Bacitracin) 50,000 unit STK-MED ONCE IRR Last administered on at 13:58; Start 01/27/18 at 12:14; Stop 01/27/18 at 13:16; Status DC Clopidogrel Bisulfate (Plavix) 75 mg DAILYWBKFT PO Last administered on at 09:13; Start 01/28/18 at 08:00; Stop 01/28/18 at 14:28; Status DC Hydromorphone HCl (Dilaudid) 2 mg STK-MED ONCE .ROUTE ; Start 01/27/18 at 15:38 ; Stop 01/27/18 at 15:40; Status DC Gentamicin Sulfate 235 mg/ Dextrose 105.875 ml @ 105.875 mls/hr 1X ONCE IV Last administered on 01/27/18at 19:56; Start 01/27/18 at 16:00; Stop 01/27/18 at 16:59; Status DC Lactobacillus Rhamnosus (Culturelle) 1 cap BID PO Last administered on at 08:19; Start 01/27/18 at 21:00 Cefepime HCl 1 gm/ Dextrose 50 ml @ 100 mls/hr DAILY IV ; Start 01/29/18 at 09: 00; Status UNV Metronidazole 100 ml @ 100 mls/hr Q12HR IV Last administered on 02/02/18at 21: 00; Start 01/28/18 at 10:00; Stop 02/03/18 at 10:49; Status DC Cefepime HCl (Maxipime) 1 gm Q24H IVP Last administered on 02/03/18at 10:54; Start 01/28/18 at 10:00; Stop 02/04/18 at 12:02; Status DC Lidocaine HCl (Xylocaine-Mpf 2% Vial) 2 ml STK-MED ONCE .ROUTE ; Start 01/28/18 at 11:41; Stop 01/28/18 at 11:42; Status DC Sodium Chloride 1,000 ml @ 1,000 mls/hr Q1H PRN IV hypotension; Start 01/28/18 at 12:09; Stop 01/28/18 at 18:08; Status DC Info (PHARMACY MONITORING -- do not chart) 1 each PRN DAILY PRN MC SEE COMMENTS ; Start 01/28/18 at 12:15; Status UNV Info (PHARMACY MONITORING -- do not chart) 1 each PRN DAILY PRN MC SEE COMMENTS ; Start 01/28/18 at 12:15; Stop 01/31/18 at 09:10; Status DC Lidocaine HCl (Xylocaine-Mpf 2% Vial) 2 ml 1X ONCE INJ ; Start 01/28/18 at 12: 15; Stop 01/28/18 at 12:21; Status DC Ticagrelor (Brilinta) 90 mg BID PO Last administered on 02/15/18at 08:20; Start 01/28/18 at 21:00 Diphenhydramine HCl (Benadryl) 25 mg PRN Q6HRS PRN PO ITCHING; Start 01/28/18 at 14:15 Aspirin (Ecotrin) 81 mg DAILYWBKFT PO Last administered on 02/15/18at 08:22; Start 01/29/18 at 08:00 Insulin Human Lispro (HumaLOG) 0-5 UNITS TIDWMEALS SQ Last administered on at 17:48; Start 01/28/18 at 17:00; Stop 02/14/18 at 13:04; Status DC Dextrose (Dextrose 50%-Water Syringe) 12.5 gm PRN Q15MIN PRN IV SEE COMMENTS Last administered on 02/05/18at 08:50; Start 01/28/18 at 14:45; Stop 02/14/18 at 13:06; Status DC Hydralazine HCl (Apresoline) 10 mg PRN TID PRN PO hypertension; Start 01/28/18 at 14:45 Oxycodone/ Acetaminophen (Percocet 10/325) 1 tab PRN Q4HRS PRN PO pain SEVERE Last administered on 02/10/18at 17:24; Start 01/29/18 at 07:45 Promethazine HCl (Phenergan Supp) 12.5 mg 1X ONCE [place] ; Start 01/29/18 at 12:15 ; Stop 01/29/18 at 12:36; Status DC Promethazine HCl (Phenergan Im) 12.5 mg 1X ONCE IM ; Start 01/29/18 at 12:45; Stop 01/29/18 at 12:46; Status DC Lidocaine/ Epinephrine (LIDOCAINE 1%-EPI 1:100,000 Multi-Dose) 20 ml STK-MED ONCE .ROUTE ; Start 01/29/18 at 12:45; Stop 01/29/18 at 12:47; Status DC Heparin Sodium (Porcine) (Hep Lock Adult) 500 unit STK-MED ONCE IV ; Start 01/29 at 12:45; Stop 01/29/18 at 12:47; Status DC Morphine Sulfate (Morphine Sulfate) 10 mg STK-MED ONCE .ROUTE ; Start 01/29/18 at 13:23; Stop 01/29/18 at 13:25; Status DC Midazolam HCl (Versed) 2 mg STK-MED ONCE .ROUTE ; Start 01/29/18 at 13:23; Stop 01/29/18 at 13:25; Status DC Morphine Sulfate (Morphine Sulfate) 1 mg PRN Q10MIN PRN IV SEVERE PAIN Last administered on 02/01/18at 15:46; Start 02/01/18 at 07:00; Stop 02/02/18 at 06:59 ; Status DC Ringer's Solution 1,000 ml @ 30 mls/hr Q24H IV ; Start 02/01/18 at 07:00; Stop 02/01/18 at 18:59; Status DC Lidocaine HCl (Xylocaine-Mpf 1% 2ml Vial) 2 ml PRN 1X PRN ID PRIOR TO IV START ; Start 02/01/18 at 07:00; Stop 02/02/18 at 06:59; Status DC Hydromorphone HCl (Dilaudid) 0.5 mg PRN Q10MIN PRN IV SEV PAIN, Second choice Last administered on 02/01/18at 16:08; Start 02/01/18 at 07:00; Stop 02/02/18 at 06:59; Status DC Prochlorperazine Edisylate (Compazine) 5 mg PACU PRN PRN IV NAUSEA, MRX1; Start 02/01/18 at 07:00; Stop 02/02/18 at 06:59; Status DC Lidocaine/ Epinephrine (LIDOCAINE 1%-EPI 1:100,000 Multi-Dose) 8 ml 1X ONCE IJ Last administered on 01/29/18at 14:01; Start 01/29/18 at 14:00; Stop 01/29/18 at 14:17; Status DC Heparin Sodium (Porcine) (Hep Lock Adult) 500 unit 1X ONCE IV Last administered on 01/29/18at 14:04; Start 01/29/18 at 14:00; Stop 01/29/18 at 14:17 ; Status DC Morphine Sulfate (Morphine Sulfate) 5 mg 1X ONCE IV Last administered on at 14:01; Start 01/29/18 at 14:00; Stop 01/29/18 at 14:17; Status DC Ondansetron HCl (Zofran) 4 mg PRN Q6HRS PRN IV NAUSEA/VOMITING 1ST CHOICE Last administered on 02/13/18at 06:09; Start 01/29/18 at 14:45 Vancomycin HCl 500 mg/Sodium Chloride 100 ml @ 100 mls/hr 1X ONCE IV Last administered on 01/29/18at 21:04; Start 01/29/18 at 18:00; Stop 01/29/18 at 18:59 ; Status DC Sodium Chloride 1,000 ml @ 1,000 mls/hr Q1H PRN IV hypotension; Start 01/30/18 at 13:09; Stop 01/30/18 at 19:08; Status DC Sodium Chloride (Normal Saline Flush) 10 ml 1X PRN PRN IV AP catheter pack; Start 01/30/18 at 13:15; Stop 01/31/18 at 13:14; Status DC Sodium Chloride (Normal Saline Flush) 10 ml 1X PRN PRN IV WHARF TALLY CLERK catheter pack; Start 01/30/18 at 13:15; Stop 01/31/18 at 13:14; Status DC Sodium Chloride 1,000 ml @ 400 mls/hr Q2H30M PRN IV PATENCY; Start 01/30/18 at 13:09; Stop 01/31/18 at 01:08; Status DC Info (PHARMACY MONITORING -- do not chart) 1 each PRN DAILY PRN MC SEE COMMENTS ; Start 01/30/18 at 13:15; Stop 01/30/18 at 13:17; Status DC Info (PHARMACY MONITORING -- do not chart) 1 each PRN DAILY PRN MC SEE COMMENTS ; Start 01/30/18 at 13:15; Stop 02/04/18 at 07:27; Status DC Lidocaine HCl (Lidocaine 1% 50ml Vial) 50 ml 1X ONCE INJ ; Start 01/30/18 at 15 :45; Stop 01/30/18 at 15:46; Status DC Vancomycin HCl 500 mg/Sodium Chloride 100 ml @ 100 mls/hr ONCE ONCE IV Last administered on 01/30/18at 20:49; Start 01/30/18 at 18:00; Stop 01/30/18 at 18:59 ; Status DC Cefazolin Sodium 1 gm/Sodium Chloride 500 ml @ 500 mls/hr 1X ONCE IRR ; Start 02/01/18 at 06:00; Stop 02/01/18 at 06:59; Status DC Lidocaine HCl (Xylocaine-Mpf 2% Vial) 2 ml STK-MED ONCE .ROUTE ; Start 01/28/18 at 12:00; Stop 02/01/18 at 08:30; Status DC Darbepoetin Mauricio (Aranesp) 60 mcg [id number] SQ Last administered on 02/08/18at 20:41; Start 02/01/18 at 21:00 Cellulose (Surgicel Fibrillar 1x2) 1 each STK-MED ONCE .ROUTE ; Start 02/01/18 at 12:05; Stop 02/01/18 at 13:06; Status DC Lidocaine HCl (Xylocaine 1% Pf 30ml Vial) 30 ml 1X ONCE INJ ; Start 02/01/18 at 13:15; Stop 02/01/18 at 13:18; Status DC Sodium Chloride 1,000 ml @ 75 mls/hr [id number] IV Last administered on at 00:15; Start 02/01/18 at 13:45; Stop 02/02/18 at 16:43; Status DC Morphine Sulfate (Morphine Sulfate) 10 mg STK-MED ONCE .ROUTE ; Start 02/01/18 at 14:24; Stop 02/01/18 at 14:25; Status DC Midazolam HCl (Versed) 2 mg STK-MED ONCE .ROUTE ; Start 02/01/18 at 14:24; Stop 02/01/18 at 14:25; Status DC Midazolam HCl (Versed) 2 mg STK-MED ONCE .ROUTE ; Start 02/01/18 at 14:25; Stop 02/01/18 at 14:26; Status DC Propofol 20 ml @ As Directed STK-MED ONCE IV ; Start 02/01/18 at 14:25; Stop at 14:26; Status DC Dexamethasone Sodium Phosphate (Decadron) 20 mg STK-MED ONCE .ROUTE ; Start 02/01/18 at 14:25; Stop 02/01/18 at 14:26; Status DC Ondansetron HCl (Zofran) 4 mg STK-MED ONCE .ROUTE ; Start 02/01/18 at 14:25; Stop 02/01/18 at 14:26; Status DC Bacitracin (Bacitracin) 50,000 unit STK-MED ONCE IRR Last administered on at 14:55; Start 02/01/18 at 13:32; Stop 02/01/18 at 14:32; Status DC Vancomycin HCl 500 mg/Sodium Chloride 100 ml @ 100 mls/hr QTUTHSA IV Last administered on 02/02/18at 16:15; Start 02/02/18 at 16:00; Stop 02/04/18 at 12: 02; Status DC Sodium Chloride 1,000 ml @ 1,000 mls/hr Q1H PRN IV hypotension; Start 02/02/18 at 09:39; Stop 02/02/18 at 15:38; Status DC Albumin Human 200 ml @ 200 mls/hr 1X PRN PRN IV Hypotension; Start 02/02/18 at 09:45; Stop 02/02/18 at 15:44; Status DC Sodium Chloride 1,000 ml @ 400 mls/hr Q2H30M PRN IV PATENCY; Start 02/02/18 at 09:39; Stop 02/02/18 at 21:38; Status DC Info (PHARMACY MONITORING -- do not chart) 1 each PRN DAILY PRN MC SEE COMMENTS ; Start 02/02/18 at 09:45; Stop 02/04/18 at 07:28; Status DC Info (PHARMACY MONITORING -- do not chart) 1 each PRN DAILY PRN MC SEE COMMENTS ; Start 02/02/18 at 09:45; Status UNV Prochlorperazine Edisylate (Compazine) 10 mg PRN Q6HRS PRN IV NAUSEA/VOMITING 2ND CHOICE Last administered on 02/15/18at 06:40; Start 02/02/18 at 11:30 Vancomycin HCl (Vanco Per Pharmacy) 1 each PRN DAILY PRN MC SEE COMMENTS Last administered on 02/02/18at 13:57; Start 02/02/18 at 14:00; Stop 02/04/18 at 12: 02; Status DC Famotidine (Pepcid Vial) 20 mg DAILY IVP Last administered on 02/08/18at 09:00 ; Start 02/03/18 at 10:00; Stop 02/08/18 at 11:45; Status DC Alteplase, Recombinant (Cathflo) 2 mg 1X ONCE INT CAT Last administered on 03/14at 02:56; Start 02/04/18 at 03:00; Stop 02/04/18 at 03:01; Status DC Sodium Chloride 1,000 ml @ 1,000 mls/hr Q1H PRN IV hypotension; Start at 07:15; Stop 02/04/18 at 13:14; Status DC Albumin Human 200 ml @ 200 mls/hr 1X PRN PRN IV Hypotension Last administered on 02/04/18at 11:26; Start 02/04/18 at 07:15; Stop 02/04/18 at 13:14; Status DC Acetaminophen (Tylenol) 500 mg 1X PRN PRN PO MILD PAIN / TEMP; Start 02/04/18 at 07:15; Stop 02/05/18 at 07:14; Status DC Diphenhydramine HCl (Benadryl) 25 mg 1X PRN PRN IV ITCHING; Start 02/04/18 at 07:15; Stop 02/05/18 at 07:14; Status DC Diphenhydramine HCl (Benadryl) 25 mg 1X PRN PRN IV ITCHING; Start 02/04/18 at 07:15; Stop 02/05/18 at 07:14; Status DC Sodium Chloride 1,000 ml @ 400 mls/hr Q2H30M PRN IV PATENCY; Start 02/04/18 at 07:15; Stop 02/04/18 at 19:14; Status DC Info (PHARMACY MONITORING -- do not chart) 1 each PRN DAILY PRN MC SEE COMMENTS ; Start 02/04/18 at 07:15; Status Cancel Lidocaine HCl (Xylocaine-Mpf 2% Vial) 2 ml STK-MED ONCE .ROUTE ; Start at 09:43; Stop 02/04/18 at 09:44; Status DC Docusate Sodium (Colace) 100 mg PRN DAILY PRN PO CONSTIPATION Last administered on 02/07/18at 22:13; Start 02/04/18 at 10:30 Ceftriaxone Sodium 2 gm/ Dextrose 100 ml @ 200 mls/hr Q24H IV Last administered on 02/04/18at 14:24; Start 02/04/18 at 13:00; Stop 02/05/18 at 11 :49; Status DC Morphine Sulfate (Morphine Sulfate) 1 mg PRN Q10MIN PRN IV SEVERE PAIN; Start 02/05/18 at 07:00; Stop 02/06/18 at 06:59; Status DC Ringer's Solution 1,000 ml @ 30 mls/hr Q24H IV ; Start 02/05/18 at 07:00; Stop 02/05/18 at 18:59; Status DC Lidocaine HCl (Xylocaine-Mpf 1% 2ml Vial) 2 ml PRN 1X PRN ID IV START; Start 02/05/18 at 07:00; Stop 02/06/18 at 06:59; Status DC Hydromorphone HCl (Dilaudid) 0.5 mg PRN Q10MIN PRN IV SEV PAIN, Second choice; Start 02/05/18 at 07:00; Stop 02/06/18 at 06:59; Status DC Prochlorperazine Edisylate (Compazine) 5 mg PACU PRN PRN IV NAUSEA, MRX1; Start 02/05/18 at 07:00; Stop 02/06/18 at 06:59; Status DC Lidocaine HCl (Xylocaine-Mpf 2% Vial) 2 ml STK-MED ONCE .ROUTE ; Start at 10:00; Stop 02/05/18 at 08:19; Status DC Sodium Chloride 1,000 ml @ 75 mls/hr [id number] IV Last administered on at 07:00; Start 02/05/18 at 10:30; Stop 02/08/18 at 15:20; Status DC Cefepime HCl 1 gm/ Dextrose 50 ml @ 100 mls/hr DAILY IV ; Start 02/06/18 at 09 :00; Status UNV Vancomycin HCl (Vanco Per Pharmacy) 1 each PRN DAILY PRN MC SEE COMMENTS Last administered on 02/08/18at 14:35; Start 02/05/18 at 12:00; Stop 02/09/18 at 09 :50; Status DC Cefepime HCl (Maxipime) 1 gm Q24H IVP Last administered on 02/08/18at 14:49; Start 02/05/18 at 12:00; Stop 02/09/18 at 09:35; Status DC Propofol 20 ml @ As Directed STK-MED ONCE IV ; Start 02/05/18 at 12:08; Stop 02/05/18 at 12:09; Status DC Lidocaine HCl (Xylocaine-Mpf 2% Vial) 2 ml STK-MED ONCE .ROUTE ; Start at 12:08; Stop 02/05/18 at 12:09; Status DC Vancomycin HCl 1.5 gm/Sodium Chloride 500 ml @ 250 mls/hr 1X ONCE IV Last administered on 02/05/18at 14:05; Start 02/05/18 at 14:00; Stop 02/05/18 at 15 :59; Status DC Vancomycin HCl (Vancomycin Random Level) 1 each 1X ONCE MC Last administered on 02/06/18at 05:00; Start 02/06/18 at 05:00; Stop 02/06/18 at 05:01; Status DC Sodium Chloride 1,000 ml @ 1,000 mls/hr Q1H PRN IV hypotension; Start at 08:12; Stop 02/06/18 at 14:11; Status DC Sodium Chloride 1,000 ml @ 400 mls/hr Q2H30M PRN IV PATENCY; Start 02/06/18 at 08:12; Stop 02/06/18 at 20:11; Status DC Info (PHARMACY MONITORING -- do not chart) 1 each PRN DAILY PRN MC SEE COMMENTS ; Start 02/06/18 at 08:15; Status UNV Info (PHARMACY MONITORING -- do not chart) 1 each PRN DAILY PRN MC SEE COMMENTS ; Start 02/06/18 at 08:15; Status UNV Lidocaine HCl (Xylocaine-Mpf 1% 2ml Vial) 2 ml 1X ONCE ID Last administered on 02/06/18at 08:30; Start 02/06/18 at 08:30; Stop 02/06/18 at 08:31; Status DC Lidocaine HCl (Xylocaine-Mpf 2% Vial) 2 ml STK-MED ONCE .ROUTE ; Start at 08:32; Stop 02/06/18 at 08:33; Status DC Diphenhydramine HCl (Benadryl) 50 mg 1X ONCE IVP Last administered on at 09:10; Start 02/06/18 at 09:00; Stop 02/06/18 at 09:02; Status DC Vancomycin HCl (Vancomycin Random Level) 1 each 1X ONCE MC Last administered on 02/08/18at 05:00; Start 02/08/18 at 05:00; Stop 02/08/18 at 05:01; Status DC Lidocaine HCl (Xylocaine-Mpf 2% Vial) 2 ml STK-MED ONCE .ROUTE ; Start at 09:00; Stop 02/08/18 at 07:54; Status DC Polyethylene Glycol (miraLAX PACKET) 17 gm DAILY PO Last administered on at 14:16; Start 02/08/18 at 12:30 Famotidine (Pepcid) 20 mg QHS PO Last administered on 02/14/18at 20:16; Start 02/08/18 at 21:00 Vancomycin HCl 500 mg/Sodium Chloride 100 ml @ 100 mls/hr QTUTHSA IV ; Start 02/09/18 at 16:00; Stop 02/09/18 at 16:00; Status DC Sodium Chloride 1,000 ml @ 1,000 mls/hr Q1H PRN IV hypotension; Start at 08:21; Stop 02/09/18 at 14:20; Status DC Sodium Chloride 1,000 ml @ 400 mls/hr Q2H30M PRN IV PATENCY; Start 02/09/18 at 08:21; Stop 02/09/18 at 20:20; Status DC Info (PHARMACY MONITORING -- do not chart) 1 each PRN DAILY PRN MC SEE COMMENTS ; Start 02/09/18 at 08:30; Status UNV Info (PHARMACY MONITORING -- do not chart) 1 each PRN DAILY PRN MC SEE COMMENTS ; Start 02/09/18 at 08:30; Status Cancel Diphenhydramine HCl (Benadryl) 50 mg 1X ONCE IVP Last administered on at 09:06; Start 02/09/18 at 08:30; Stop 02/09/18 at 08:31; Status DC Lidocaine HCl (Xylocaine-Mpf 2% Vial) 2 ml STK-MED ONCE .ROUTE ; Start at 08:40; Stop 02/09/18 at 08:41; Status DC Linezolid/Dextrose 300 ml @ 300 mls/hr Q12HR IV Last administered on at 08:19; Start 02/09/18 at 10:00 Gentamicin Sulfate 1 each PRN DAILY PRN MC SEE COMMENTS Last administered on at 12:09; Start 02/09/18 at 09:30 Metronidazole 100 ml @ 100 mls/hr Q8HRS IV Last administered on 02/15/18at 11: 52; Start 02/09/18 at 14:00 Gentamicin Sulfate 140 mg/ Dextrose 103.5 ml @ 207 mls/hr 1X ONCE IV Last administered on 02/09/18at 12:26; Start 02/09/18 at 12:00; Stop 02/09/18 at 12 :29; Status DC Lubiprostone (Amitiza) 8 mcg BIDWMEALS PO Last administered on 02/13/18at 18:38 ; Start 02/09/18 at 17:00 Gentamicin Sulfate 1 each 1X ONCE MC Last administered on 02/11/18at 06:00; Start 02/11/18 at 06:00; Stop 02/11/18 at 06:01; Status DC Hydromorphone HCl (Dilaudid) 2 mg 1X ONCE IV ; Start 02/10/18 at 10:30; Stop 02/10/18 at 10:31; Status DC Lidocaine HCl (Xylocaine-Mpf 2% Vial) 2 ml STK-MED ONCE .ROUTE ; Start at 09:00; Stop 02/10/18 at 13:19; Status DC Alteplase, Recombinant (Cathflo) 2 mg 1X ONCE INT CAT Last administered on at 22:18; Start 02/10/18 at 21:30; Stop 02/10/18 at 21:31; Status DC Silver Sulfadiazine (Silvadene) 25 susanna STK-MED ONCE TP ; Start 02/11/18 at 05: 56; Stop 02/11/18 at 06:57; Status DC Lidocaine HCl (Xylocaine 1% Pf 30ml Vial) 30 ml STK-MED ONCE .ROUTE ; Start at 05:57; Stop 02/11/18 at 06:58; Status DC Ondansetron HCl (Zofran) 4 mg PRN Q6HRS PRN IV NAUSEA/VOMITING; Start at 07:15; Stop 02/11/18 at 12:42; Status DC Fentanyl Citrate (Fentanyl 2ml Vial) 25 mcg PRN Q5MIN PRN IV MILD PAIN; Start 02/11/18 at 07:15; Stop 02/11/18 at 12:39; Status DC Fentanyl Citrate (Fentanyl 2ml Vial) 50 mcg PRN Q5MIN PRN IV MODERATE TO SEVERE PAIN; Start 02/11/18 at 07:15; Stop 02/11/18 at 12:40; Status DC Morphine Sulfate (Morphine Sulfate) 1 mg PRN Q10MIN PRN IV SEVERE PAIN; Start 02/11/18 at 07:15; Stop 02/11/18 at 12:41; Status DC Ringer's Solution 1,000 ml @ 30 mls/hr Q24H IV ; Start 02/11/18 at 07:15; Stop 02/11/18 at 19:14; Status Cancel Lidocaine HCl (Xylocaine-Mpf 1% 2ml Vial) 2 ml PRN 1X PRN ID PRIOR TO IV START ; Start 02/11/18 at 07:15; Stop 02/11/18 at 12:40; Status DC Hydromorphone HCl (Dilaudid) 0.5 mg PRN Q10MIN PRN IV SEV PAIN, Second choice; Start 02/11/18 at 07:15; Stop 02/11/18 at 12:40; Status DC Prochlorperazine Edisylate (Compazine) 5 mg PACU PRN PRN IV NAUSEA, MRX1; Start 02/11/18 at 07:15; Stop 02/11/18 at 12:42; Status DC Sodium Chloride 1,000 ml @ 75 mls/hr [id number] IV Last administered on at 00:23; Start 02/11/18 at 07:30; Stop 02/13/18 at 09:35; Status DC Propofol 20 ml @ As Directed STK-MED ONCE IV ; Start 02/11/18 at 07:20; Stop 02/11/18 at 07:21; Status DC Dexamethasone Sodium Phosphate (Decadron) 20 mg STK-MED ONCE .ROUTE ; Start at 07:20; Stop 02/11/18 at 07:21; Status DC Famotidine (Pepcid Vial) 20 mg STK-MED ONCE .ROUTE ; Start 02/11/18 at 07:20; Stop 02/11/18 at 07:21; Status DC Lidocaine HCl (Lidocaine Pf 2% Vial) 5 ml STK-MED ONCE .ROUTE ; Start 02/11/18 at 07:20; Stop 02/11/18 at 07:21; Status DC Ondansetron HCl (Zofran) 4 mg STK-MED ONCE .ROUTE ; Start 02/11/18 at 07:20; Stop 02/11/18 at 07:21; Status DC Fentanyl Citrate (Fentanyl 2ml Vial) 100 mcg STK-MED ONCE .ROUTE ; Start at 07:20; Stop 02/11/18 at 07:21; Status DC Midazolam HCl (Versed) 2 mg STK-MED ONCE .ROUTE ; Start 02/11/18 at 07:21; Stop 02/11/18 at 07:22; Status DC Ephedrine Sulfate (ePHEDrine PF IN SALINE SYRINGE) 50 mg STK-MED ONCE IV ; Start 02/11/18 at 08:22; Stop 02/11/18 at 08:23; Status DC Desflurane (Suprane) 30 ml STK-MED ONCE IH ; Start 02/11/18 at 08:41; Stop at 08:42; Status DC Sodium Chloride 1,000 ml @ 1,000 mls/hr Q1H PRN IV hypotension; Start at 09:57; Stop 02/11/18 at 15:56; Status DC Albumin Human 200 ml @ 200 mls/hr 1X PRN PRN IV Hypotension; Start 02/11/18 at 10:00; Stop 02/11/18 at 15:59; Status DC Sodium Chloride 1,000 ml @ 400 mls/hr Q2H30M PRN IV PATENCY; Start 02/11/18 at 09:57; Stop 02/11/18 at 21:56; Status DC Info (PHARMACY MONITORING -- do not chart) 1 each PRN DAILY PRN MC SEE COMMENTS ; Start 02/11/18 at 10:00; Status UNV Info (PHARMACY MONITORING -- do not chart) 1 each PRN DAILY PRN MC SEE COMMENTS ; Start 02/11/18 at 10:00; Status UNV Lidocaine HCl (Xylocaine-Mpf 1% 2ml Vial) 2 ml 1X ONCE INJ ; Start 02/11/18 at 10:00; Stop 02/11/18 at 10:13; Status DC Gentamicin Sulfate 100 mg/ Dextrose 52.5 ml @ 105 mls/hr QTUTHSA IV Last administered on 02/13/18at 20:42; Start 02/11/18 at 16:00 Gentamicin Sulfate 1 each 1X ONCE MC ; Start 02/13/18 at 05:00; Stop at 05:00; Status DC Lidocaine HCl (Xylocaine-Mpf 2% Vial) 2 ml STK-MED ONCE .ROUTE ; Start at 13:22; Stop 02/11/18 at 13:23; Status DC Lidocaine HCl (Xylocaine-Mpf 2% Vial) 2 ml STK-MED ONCE .ROUTE ; Start at 14:00; Stop 02/12/18 at 08:48; Status DC Pantoprazole Sodium (Protonix) 40 mg DAILYAC PO Last administered on at 08:19; Start 02/12/18 at 16:00 Sodium Chloride 1,000 ml @ 1,000 mls/hr Q1H PRN IV hypotension; Start at 08:36; Stop 02/13/18 at 14:35; Status DC Info (PHARMACY MONITORING -- do not chart) 1 each PRN DAILY PRN MC SEE COMMENTS ; Start 02/13/18 at 08:45; Status UNV Info (PHARMACY MONITORING -- do not chart) 1 each PRN DAILY PRN MC SEE COMMENTS ; Start 02/13/18 at 08:45 Insulin Glargine (Lantus) 15 units QHS SQ ; Start 02/13/18 at 21:00; Stop at 13:04; Status DC Alteplase, Recombinant (Cathflo) 2 mg 1X ONCE INT CAT Last administered on at 19:00; Start 02/13/18 at 19:00; Stop 02/13/18 at 19:01; Status DC Insulin Human Lispro (HumaLOG) 0-9 UNITS TIDWMEALS SQ Last administered on at 17:53; Start 02/14/18 at 14:00 Dextrose (Dextrose 50%-Water Syringe) 12.5 gm PRN Q15MIN PRN IV SEE COMMENTS; Start 02/14/18 at 13:15 Hydromorphone HCl (Dilaudid) 2 mg 1X ONCE IV Last administered on 02/15/18at 14:08; Start 02/15/18 at 14:00; Stop 02/15/18 at 14:01; Status DC Active Scripts Active Percocet 10-325 Mg Tablet (Oxycodone/Acetaminophen) 1 Each Tablet 1 Tab PO Q4HRS Brilinta (Ticagrelor) 90 Mg Tablet 90 Mg PO BID 30 Days Morphine Sulfate Er (Morphine Sulfate) 15 Mg Tablet.er 15 Mg PO BID Reported Brilinta (Ticagrelor) 90 Mg Tablet 90 Mg PO BID Lidocaine 1 Each Adh..patch 1 Each TP PRN DAILY PRN Calcitriol 0.25 Mcg Capsule 1 Cap PO DAILY Tegretol (Carbamazepine) 200 Mg Tablet 1 Tab PO BID Tramadol Hcl 50 Mg Tablet 50 Mg PO Q4HRS PRN Lantus Solostar (Insulin Glargine,Hum.rec.anlog) 100 Unit/1 Ml Insuln.pen 22 Unit SQ QHS Diflucan (Fluconazole) 100 Mg Tablet 100 Mg PO PRN Carvedilol 3.125 Mg Tablet 12.5 Mg PO BID Erythromycin (Erythromycin Base) 250 Mg Capsule.dr 250 Mg PO BID Cardizem Cd (Diltiazem Hcl) 180 Mg Cap.er.24h 120 Mg PO DAILY Amiodarone Hcl 200 Mg Tablet 1 Tab PO DAILY Nystatin 15 Gm Powder 1 Susanna TP PRN BID PRN Proventil Hfa Inhaler (Albuterol Sulfate) 6.7 Gm Hfa.aer.ad 2 Puff IH BID PRN Zofran (Ondansetron Hcl) 4 Mg Tablet 4 Mg PO Q6-8HRS PRN Nephro-Shabbir Tablet (Folic Acid/Vitamin B Comp W-C) 0.8 Mg Tablet 1 Tab PO DAILY Tricor (Fenofibrate Nanocrystallized) 145 Mg Tablet 1 Tab PO HS Lipitor (Atorvastatin Calcium) 80 Mg Tablet 80 Mg PO HS Niacin 500 Mg Tablet 500 Mg PO HS Novolog (Insulin Aspart) 100 Unit/1 Ml Cartridge 0 SQ TIDAC sliding scale Aspirin 325 Mg Tablet 325 Mg PO DAILY Furosemide 80 Mg Tablet 80 Mg PO BID Docusate Sodium 100 Mg Capsule 1 Cap PO PRN PRN Nitrostat (Nitroglycerin) 0.4 Mg Tab.subl 0.4 Mg SL PRN Q5MIN PRN Take as needed for chest pain Vitals/I & O Vital Sign - Last 24 Hours 02/14/18 02/14/18 02/14/18 02/14/18 15:00 17:34 17:35 19:00 Temp 97.7 98.1 97.7 98.1 Pulse 74 74 71 Resp 20 16 B/P (MAP) 132/60 (84) 132/60 128/59 (82) Pulse Ox 98 98 100 O2 Delivery Nasal Cannula Nasal Cannula Room Air O2 Flow Rate 2.0 2.0 02/14/18 02/14/18 02/14/18 02/14/18 20:00 20:16 22:31 23:00 Temp 98.0 98.0 Pulse 62 Resp 18 B/P (MAP) 110/49 (69) Pulse Ox 98 O2 Delivery Nasal Cannula Room Air Room Air Room Air O2 Flow Rate 2.0 02/15/18 02/15/18 02/15/18 02/15/18 03:00 04:02 07:00 08:00 Temp 98.0 97.8 98.0 97.8 Pulse 73 73 Resp 18 18 B/P (MAP) 134/57 (82) 157/50 (85) Pulse Ox 98 100 O2 Delivery Nasal Cannula Room Air Nasal Cannula Nasal Cannula O2 Flow Rate 2.0 2.0 2.0 02/15/18 02/15/18 02/15/18 02/15/18 08:19 08:20 08:20 08:21 Pulse 73 73 73 Resp 20 B/P (MAP) 157/50 157/50 157/50 Pulse Ox 100 O2 Delivery Nasal Cannula O2 Flow Rate 2.0 02/15/18 02/15/18 02/15/18 02/15/18 08:29 08:59 11:13 12:20 Temp 97.7 97.7 Pulse 72 Resp 20 20 18 20 B/P (MAP) 144/56 (85) Pulse Ox 100 100 100 100 O2 Delivery Nasal Cannula Nasal Cannula Nasal Cannula Nasal Cannula O2 Flow Rate 2.0 2.0 2.0 2.0 02/15/18 14:08 Resp 20 Pulse Ox 100 O2 Delivery Nasal Cannula O2 Flow Rate 2.0 Intake and Output 02/14/18 02/14/18 02/15/18 15:00 23:00 07:00 Intake Total 200 ml 1200 ml 220 ml Output Total 0 ml Balance 200 ml 1200 ml 220 ml HONG [id number] Feb 15, 2018 14:59
--- NOTE | 2018-02-15 15:04 | PDOC ---
Subjective: Subjective: Pt states she feels weak and tired. Her right leg/groin area is in pain and she will be having another wound vac change today. She reports that she has not vomited since starting Protonix daily in addition to Pepcid and Erythromycin. However, she still has nausea and dry heaving. She still has diarrhea, but recent C. Diff study was negative. She reports significant vision loss and has been recommended to be transferred to a hospital with inpatient retina specialists. She is frustrated that this has not been accomplished yet. Objective: Vital Signs: Vital Signs Date Time Temp Pulse Resp B/P (MAP) Pulse Ox O2 Delivery O2 Flow Rate FiO2 02/15/18 14:55 97.9 73 18 140/58 (85) 100 Nasal Cannula 2.0 97.9 Labs: Laboratory Tests Test 02/14/18 16:30 02/14/18 20:21 02/15/18 04:00 02/15/18 07:06 Glucose (Fingerstick) 221 mg/dL 140 mg/dL 92 mg/dL White Blood Count 12.9 x10^3/uL Red Blood Count 2.44 x10^6/uL Hemoglobin 7.8 g/dL Hematocrit 23.3 % Mean Corpuscular Volume 95 fL Mean Corpuscular Hemoglobin 32 pg Mean Corpuscular Hemoglobin Concent 34 g/dL Red Cell Distribution Width 18.1 % Platelet Count 262 x10^3/uL Neutrophils (%) (Auto) 82 % Lymphocytes (%) (Auto) 9 % Monocytes (%) (Auto) 8 % Eosinophils (%) (Auto) 1 % Basophils (%) (Auto) 1 % Neutrophils # (Auto) 10.6 x10^3uL Lymphocytes # (Auto) 1.1 x10^3/uL Monocytes # (Auto) 1.0 x10^3/uL Eosinophils # (Auto) 0.1 x10^3/uL Basophils # (Auto) 0.1 x10^3/uL Sodium Level 140 mmol/L Potassium Level 3.6 mmol/L Chloride Level 102 mmol/L Carbon Dioxide Level 31 mmol/L Anion Gap 7 Blood Urea Nitrogen 10 mg/dL Creatinine 3.6 mg/dL Estimated GFR (Cockcroft-Gault) 13.3 Glucose Level 107 mg/dL Calcium Level 8.0 mg/dL Test 02/15/18 11:29 Glucose (Fingerstick) 124 mg/dL Current Medications Medications (Trade) Dose Ordered Sig/Martin Route PRN Reason Start Time Stop Time Status Last Admin Dose Admin Hydromorphone HCl (Dilaudid) 2 mg 1X ONCE IV 01/26/18 22:00 01/26/18 22:01 DC 01/26/18 22:39 Vancomycin HCl (Vanco Per Pharmacy) 1 each PRN DAILY PRN MC SEE COMMENTS 01/26/18 22:45 02/01/18 11:41 DC 01/31/18 17:20 Vancomycin HCl 1.75 gm/Sodium Chloride 500 ml @ 250 mls/hr 1X ONCE IV 01/26/18 23:00 01/27/18 00:59 DC 01/26/18 23:53 Ondansetron HCl (Zofran) 4 mg PRN Q8HRS PRN IV NAUSEA/VOMITING 1ST CHOICE 01/26/18 23:15 01/27/18 23:14 DC Sodium Chloride 1,000 ml @ 75 mls/hr [id number] IV 01/26/18 23:30 01/27/18 23:29 DC 01/27/18 00:39 Pharmacy Consult (C.diff Med Screen By Rx) 1 each 1X ONCE MC 01/27/18 01:00 01/27/18 01:01 Cancel Influenza Virus Vaccine (Afluria Trivalent [id number] Syringe) 0.5 ml ONCE ONCE VAX IM 01/27/18 09:00 01/27/18 09:01 DC 01/27/18 09:00 Vancomycin HCl (Vancomycin Random Level) 1 each 1X ONCE MC 01/28/18 05:00 01/28/18 05:01 DC 01/28/18 05:00 Hydromorphone HCl (Dilaudid) 1 mg PRN Q3HRS PRN IV SEVERE PAIN 01/27/18 03:30 02/15/18 08:29 Ondansetron HCl (Zofran) 4 mg PRN Q6HRS PRN IV NAUSEA/VOMITING 01/27/18 10:45 01/27/18 18:00 DC Fentanyl Citrate (Fentanyl 2ml Vial) 25 mcg PRN Q5MIN PRN IV MILD PAIN 01/27/18 10:45 01/27/18 18:00 DC Fentanyl Citrate (Fentanyl 2ml Vial) 50 mcg PRN Q5MIN PRN IV MODERATE TO SEVERE PAIN 01/27/18 10:45 01/27/18 18:00 DC Morphine Sulfate (Morphine Sulfate) 1 mg PRN Q10MIN PRN IV SEVERE PAIN 01/27/18 10:45 01/27/18 18:00 DC 01/27/18 16:28 Ringer's Solution 1,000 ml @ 30 mls/hr Q24H IV 01/27/18 10:35 01/27/18 19:36 DC 01/27/18 10:35 Lidocaine HCl (Xylocaine-Mpf 1% 2ml Vial) 2 ml 1X PRN PRN ID IV START 01/27/18 10:45 01/27/18 18:00 DC Hydromorphone HCl (Dilaudid) 0.5 mg PRN Q10MIN PRN IV SEV PAIN, Second choice 01/27/18 10:45 01/27/18 18:00 DC 01/27/18 15:59 Prochlorperazine Edisylate (Compazine) 5 mg PACU PRN PRN IV NAUSEA, MRX1 01/27/18 10:45 01/27/18 18:00 DC Amiodarone HCl (Cordarone) 200 mg DAILY PO 01/27/18 12:30 02/15/18 08:21 Aspirin (Anthony Aspirin) 325 mg DAILY PO 01/27/18 12:30 01/28/18 14:26 DC 01/28/18 09:13 Carbamazepine (TEGretol) 200 mg BID PO 01/27/18 12:30 02/15/18 08:20 Carvedilol (Coreg) 12.5 mg BIDWMEALS PO 01/27/18 12:30 02/15/18 08:20 Vitamin B Complex/ Vitamin C (Melly-Shabbir) 1 tab DAILY PO 01/27/18 12:30 02/15/18 08:19 Furosemide (Lasix) 80 mg [id number] PO 01/27/18 12:30 02/15/18 11:52 Insulin Glargine (Lantus) 22 units QHS SQ 01/27/18 21:00 02/13/18 09:35 DC 02/12/18 21:25 Morphine Sulfate (Ms Contin) 15 mg BID PO 01/27/18 12:30 02/15/18 08:20 Nitroglycerin (Nitrostat) 0.4 mg PRN Q5MIN PRN SL CHEST PAIN 01/27/18 12:00 Nystatin (Nystop) 1 erich PRN BID PRN TP SKIN BREAKDOWN 01/27/18 12:00 Tramadol HCl (Ultram) 50 mg PRN Q4HRS PRN PO HEADACHE 01/27/18 12:00 02/14/18 09:19 Non-Formulary Medication (Albuterol Sulfate (Proventil Hfa Inhaler)) 2 puff BID PRN IH FOR ASTHMA 01/27/18 12:00 UNV Atorvastatin Calcium (Lipitor) 80 mg QHS PO 01/27/18 21:00 02/14/18 20:16 Calcitriol (Rocaltrol) 0.25 mcg DAILY PO 01/27/18 12:30 02/15/18 08:22 Diltiazem HCl (Cardizem 24hr Cd) 120 mg DAILY PO 01/27/18 12:30 02/15/18 08:19 Erythromycin (E-Mycin) 250 mg BID PO 01/27/18 21:00 02/15/18 08:19 Fenofibrate (Lofibra) 134 mg QHS PO 01/27/18 21:00 02/14/18 20:16 Non-Formulary Medication (Fluconazole (Diflucan)) 100 mg PRN PO 01/27/18 12:00 UNV Lidocaine (Lidoderm) 1 patch PRN DAILY PRN TD PAIN 01/27/18 09:00 Niacin (Slo-Niacin) 500 mg QHS PO 01/27/18 21:00 02/14/18 20:16 Ondansetron HCl (Zofran Odt) 4 mg PRN Q6HRS PRN PO NAUSEA/VOMITING 01/27/18 12:15 02/13/18 21:54 Miscellaneous (Lidoderm Patch Removal) 1 ea QHS MC 01/27/18 21:00 02/14/18 20:17 Albuterol Sulfate (Ventolin Neb Soln) 2.5 mg PRN BID PRN NEB SHORTNESS OF BREATH 01/27/18 12:30 01/27/18 21:59 Lidocaine HCl (Lidocaine 1% 50ml Vial) 50 ml 1X ONCE INJ 01/27/18 12:45 01/27/18 12:46 DC 01/27/18 14:06 Hydromorphone HCl (Dilaudid) 2 mg STK-MED ONCE .ROUTE 01/27/18 12:36 01/27/18 12:38 DC Propofol 20 ml @ As Directed STK-MED ONCE IV 01/27/18 12:38 01/27/18 12:39 DC Bacitracin 33093 unit/Sodium Chloride 3,000 ml @ 0 mls/hr 1X ONCE IR 01/27/18 13:15 01/27/18 13:16 Cancel Dexamethasone Sodium Phosphate (Decadron) 20 mg STK-MED ONCE .ROUTE 01/27/18 13:11 01/27/18 13:12 DC Ondansetron HCl (Zofran) 4 mg STK-MED ONCE .ROUTE 01/27/18 13:11 01/27/18 13:12 DC Sevoflurane (Ultane) 30 ml STK-MED ONCE IH 01/27/18 13:11 01/27/18 13:12 DC Bacitracin (Bacitracin) 50,000 unit STK-MED ONCE IRR 01/27/18 12:14 01/27/18 13:16 DC 01/27/18 13:58 Clopidogrel Bisulfate (Plavix) 75 mg DAILYWBKFT PO 01/28/18 08:00 01/28/18 14:28 DC 01/28/18 09:13 Hydromorphone HCl (Dilaudid) 2 mg STK-MED ONCE .ROUTE 01/27/18 15:38 01/27/18 15:40 DC Gentamicin Sulfate 235 mg/ Dextrose 105.875 ml @ 105.875 mls/hr 1X ONCE IV 01/27/18 16:00 01/27/18 16:59 DC 01/27/18 19:56 Lactobacillus Rhamnosus (Culturelle) 1 cap BID PO 01/27/18 21:00 02/15/18 08:19 Cefepime HCl 1 gm/ Dextrose 50 ml @ 100 mls/hr DAILY IV 01/29/18 09:00 UNV Metronidazole 100 ml @ 100 mls/hr Q12HR IV 01/28/18 10:00 02/03/18 10:49 DC 02/02/18 21:00 Cefepime HCl (Maxipime) 1 gm Q24H IVP 01/28/18 10:00 02/04/18 12:02 DC 02/03/18 10:54 Lidocaine HCl (Xylocaine-Mpf 2% Vial) 2 ml STK-MED ONCE .ROUTE 01/28/18 11:41 01/28/18 11:42 DC Sodium Chloride 1,000 ml @ 1,000 mls/hr Q1H PRN IV hypotension 01/28/18 12:09 01/28/18 18:08 DC Info (PHARMACY MONITORING -- do not chart) 1 each PRN DAILY PRN MC SEE COMMENTS 01/28/18 12:15 UNV Info (PHARMACY MONITORING -- do not chart) 1 each PRN DAILY PRN MC SEE COMMENTS 01/28/18 12:15 01/31/18 09:10 DC Lidocaine HCl (Xylocaine-Mpf 2% Vial) 2 ml 1X ONCE INJ 01/28/18 12:15 01/28/18 12:21 DC Ticagrelor (Brilinta) 90 mg BID PO 01/28/18 21:00 02/15/18 08:20 Diphenhydramine HCl (Benadryl) 25 mg PRN Q6HRS PRN PO ITCHING 01/28/18 14:15 Aspirin (Ecotrin) 81 mg DAILYWBKFT PO 01/29/18 08:00 02/15/18 08:22 Insulin Human Lispro (HumaLOG) 0-5 UNITS TIDWMEALS SQ 01/28/18 17:00 02/14/18 13:04 DC 02/12/18 17:48 Dextrose (Dextrose 50%-Water Syringe) 12.5 gm PRN Q15MIN PRN IV SEE COMMENTS 01/28/18 14:45 02/14/18 13:06 DC 02/05/18 08:50 Hydralazine HCl (Apresoline) 10 mg PRN TID PRN PO hypertension 01/28/18 14:45 Oxycodone/ Acetaminophen (Percocet 10/325) 1 tab PRN Q4HRS PRN PO pain SEVERE 01/29/18 07:45 02/10/18 17:24 Promethazine HCl (Phenergan Supp) 12.5 mg 1X ONCE IL 01/29/18 12:15 01/29/18 12:36 DC Promethazine HCl (Phenergan Im) 12.5 mg 1X ONCE IM 01/29/18 12:45 01/29/18 12:46 DC Lidocaine/ Epinephrine (LIDOCAINE 1%-EPI 1:100,000 Multi-Dose) 20 ml STK-MED ONCE .ROUTE 01/29/18 12:45 01/29/18 12:47 DC Heparin Sodium (Porcine) (Hep Lock Adult) 500 unit STK-MED ONCE IV 01/29/18 12:45 01/29/18 12:47 DC Morphine Sulfate (Morphine Sulfate) 10 mg STK-MED ONCE .ROUTE 01/29/18 13:23 01/29/18 13:25 DC Midazolam HCl (Versed) 2 mg STK-MED ONCE .ROUTE 01/29/18 13:23 01/29/18 13:25 DC Morphine Sulfate (Morphine Sulfate) 1 mg PRN Q10MIN PRN IV SEVERE PAIN 02/01/18 07:00 02/02/18 06:59 DC 02/01/18 15:46 Ringer's Solution 1,000 ml @ 30 mls/hr Q24H IV 02/01/18 07:00 02/01/18 18:59 DC Lidocaine HCl (Xylocaine-Mpf 1% 2ml Vial) 2 ml PRN 1X PRN ID PRIOR TO IV START 02/01/18 07:00 02/02/18 06:59 DC Hydromorphone HCl (Dilaudid) 0.5 mg PRN Q10MIN PRN IV SEV PAIN, Second choice 02/01/18 07:00 02/02/18 06:59 DC 02/01/18 16:08 Prochlorperazine Edisylate (Compazine) 5 mg PACU PRN PRN IV NAUSEA, MRX1 02/01/18 07:00 02/02/18 06:59 DC Lidocaine/ Epinephrine (LIDOCAINE 1%-EPI 1:100,000 Multi-Dose) 8 ml 1X ONCE IJ 01/29/18 14:00 01/29/18 14:17 DC 01/29/18 14:01 Heparin Sodium (Porcine) (Hep Lock Adult) 500 unit 1X ONCE IV 01/29/18 14:00 01/29/18 14:17 DC 01/29/18 14:04 Morphine Sulfate (Morphine Sulfate) 5 mg 1X ONCE IV 01/29/18 14:00 01/29/18 14:17 DC 01/29/18 14:01 Ondansetron HCl (Zofran) 4 mg PRN Q6HRS PRN IV NAUSEA/VOMITING 1ST CHOICE 01/29/18 14:45 02/13/18 06:09 Vancomycin HCl 500 mg/Sodium Chloride 100 ml @ 100 mls/hr 1X ONCE IV 01/29/18 18:00 01/29/18 18:59 DC 01/29/18 21:04 Sodium Chloride 1,000 ml @ 1,000 mls/hr Q1H PRN IV hypotension 01/30/18 13:09 01/30/18 19:08 DC Sodium Chloride (Normal Saline Flush) 10 ml 1X PRN PRN IV AP catheter pack 01/30/18 13:15 01/31/18 13:14 DC Sodium Chloride (Normal Saline Flush) 10 ml 1X PRN PRN IV [employer] catheter pack 01/30/18 13:15 01/31/18 13:14 DC Sodium Chloride 1,000 ml @ 400 mls/hr Q2H30M PRN IV PATENCY 01/30/18 13:09 01/31/18 01:08 DC Info (PHARMACY MONITORING -- do not chart) 1 each PRN DAILY PRN MC SEE COMMENTS 01/30/18 13:15 01/30/18 13:17 DC Info (PHARMACY MONITORING -- do not chart) 1 each PRN DAILY PRN MC SEE COMMENTS 01/30/18 13:15 02/04/18 07:27 DC Lidocaine HCl (Lidocaine 1% 50ml Vial) 50 ml 1X ONCE INJ 01/30/18 15:45 01/30/18 15:46 DC Vancomycin HCl 500 mg/Sodium Chloride 100 ml @ 100 mls/hr ONCE ONCE IV 01/30/18 18:00 01/30/18 18:59 DC 01/30/18 20:49 Cefazolin Sodium 1 gm/Sodium Chloride 500 ml @ 500 mls/hr 1X ONCE IRR 02/01/18 06:00 02/01/18 06:59 DC Lidocaine HCl (Xylocaine-Mpf 2% Vial) 2 ml STK-MED ONCE .ROUTE 01/28/18 12:00 02/01/18 08:30 DC Darbepoetin Mauricio (Aranesp) 60 mcg [id number] SQ 02/01/18 21:00 02/08/18 20:41 Cellulose (Surgicel Fibrillar 1x2) 1 each STK-MED ONCE .ROUTE 02/01/18 12:05 02/01/18 13:06 DC Lidocaine HCl (Xylocaine 1% Pf 30ml Vial) 30 ml 1X ONCE INJ 02/01/18 13:15 02/01/18 13:18 DC Sodium Chloride 1,000 ml @ 75 mls/hr [id number] IV 02/01/18 13:45 02/02/18 16:43 DC 02/02/18 00:15 Morphine Sulfate (Morphine Sulfate) 10 mg STK-MED ONCE .ROUTE 02/01/18 14:24 02/01/18 14:25 DC Midazolam HCl (Versed) 2 mg STK-MED ONCE .ROUTE 02/01/18 14:24 02/01/18 14:25 DC Midazolam HCl (Versed) 2 mg STK-MED ONCE .ROUTE 02/01/18 14:25 02/01/18 14:26 DC Propofol 20 ml @ As Directed STK-MED ONCE IV 02/01/18 14:25 02/01/18 14:26 DC Dexamethasone Sodium Phosphate (Decadron) 20 mg STK-MED ONCE .ROUTE 02/01/18 14:25 02/01/18 14:26 DC Ondansetron HCl (Zofran) 4 mg STK-MED ONCE .ROUTE 02/01/18 14:25 02/01/18 14:26 DC Bacitracin (Bacitracin) 50,000 unit STK-MED ONCE IRR 02/01/18 13:32 02/01/18 14:32 DC 02/01/18 14:55 Vancomycin HCl 500 mg/Sodium Chloride 100 ml @ 100 mls/hr QTUTHSA IV 02/02/18 16:00 02/04/18 12:02 DC 02/02/18 16:15 Sodium Chloride 1,000 ml @ 1,000 mls/hr Q1H PRN IV hypotension 02/02/18 09:39 02/02/18 15:38 DC Albumin Human 200 ml @ 200 mls/hr 1X PRN PRN IV Hypotension 02/02/18 09:45 02/02/18 15:44 DC Sodium Chloride 1,000 ml @ 400 mls/hr Q2H30M PRN IV PATENCY 02/02/18 09:39 02/02/18 21:38 DC Info (PHARMACY MONITORING -- do not chart) 1 each PRN DAILY PRN MC SEE COMMENTS 02/02/18 09:45 02/04/18 07:28 DC Info (PHARMACY MONITORING -- do not chart) 1 each PRN DAILY PRN MC SEE COMMENTS 02/02/18 09:45 UNV Prochlorperazine Edisylate (Compazine) 10 mg PRN Q6HRS PRN IV NAUSEA/VOMITING 2ND CHOICE 02/02/18 11:30 02/15/18 06:40 Vancomycin HCl (Vanco Per Pharmacy) 1 each PRN DAILY PRN MC SEE COMMENTS 02/02/18 14:00 02/04/18 12:02 DC 02/02/18 13:57 Famotidine (Pepcid Vial) 20 mg DAILY IVP 02/03/18 10:00 02/08/18 11:45 DC 02/08/18 09:00 Alteplase, Recombinant (Cathflo) 2 mg 1X ONCE INT CAT 02/04/18 03:00 02/04/18 03:01 DC 02/04/18 02:56 Sodium Chloride 1,000 ml @ 1,000 mls/hr Q1H PRN IV hypotension 02/04/18 07:15 02/04/18 13:14 DC Albumin Human 200 ml @ 200 mls/hr 1X PRN PRN IV Hypotension 02/04/18 07:15 02/04/18 13:14 DC 02/04/18 11:26 Acetaminophen (Tylenol) 500 mg 1X PRN PRN PO MILD PAIN / TEMP 02/04/18 07:15 02/05/18 07:14 DC Diphenhydramine HCl (Benadryl) 25 mg 1X PRN PRN IV ITCHING 02/04/18 07:15 02/05/18 07:14 DC Diphenhydramine HCl (Benadryl) 25 mg 1X PRN PRN IV ITCHING 02/04/18 07:15 02/05/18 07:14 DC Sodium Chloride 1,000 ml @ 400 mls/hr Q2H30M PRN IV PATENCY 02/04/18 07:15 02/04/18 19:14 DC Info (PHARMACY MONITORING -- do not chart) 1 each PRN DAILY PRN MC SEE COMMENTS 02/04/18 07:15 Cancel Lidocaine HCl (Xylocaine-Mpf 2% Vial) 2 ml STK-MED ONCE .ROUTE 02/04/18 09:43 02/04/18 09:44 DC Docusate Sodium (Colace) 100 mg PRN DAILY PRN PO CONSTIPATION 02/04/18 10:30 02/07/18 22:13 Ceftriaxone Sodium 2 gm/ Dextrose 100 ml @ 200 mls/hr Q24H IV 02/04/18 13:00 02/05/18 11:49 DC 02/04/18 14:24 Morphine Sulfate (Morphine Sulfate) 1 mg PRN Q10MIN PRN IV SEVERE PAIN 02/05/18 07:00 02/06/18 06:59 DC Ringer's Solution 1,000 ml @ 30 mls/hr Q24H IV 02/05/18 07:00 02/05/18 18:59 DC Lidocaine HCl (Xylocaine-Mpf 1% 2ml Vial) 2 ml PRN 1X PRN ID IV START 02/05/18 07:00 02/06/18 06:59 DC Hydromorphone HCl (Dilaudid) 0.5 mg PRN Q10MIN PRN IV SEV PAIN, Second choice 02/05/18 07:00 02/06/18 06:59 DC Prochlorperazine Edisylate (Compazine) 5 mg PACU PRN PRN IV NAUSEA, MRX1 02/05/18 07:00 02/06/18 06:59 DC Lidocaine HCl (Xylocaine-Mpf 2% Vial) 2 ml STK-MED ONCE .ROUTE 02/04/18 10:00 02/05/18 08:19 DC Sodium Chloride 1,000 ml @ 75 mls/hr [id number] IV 02/05/18 10:30 02/08/18 15:20 DC 02/06/18 07:00 Cefepime HCl 1 gm/ Dextrose 50 ml @ 100 mls/hr DAILY IV 02/06/18 09:00 UNV Vancomycin HCl (Vanco Per Pharmacy) 1 each PRN DAILY PRN MC SEE COMMENTS 02/05/18 12:00 02/09/18 09:50 DC 02/08/18 14:35 Cefepime HCl (Maxipime) 1 gm Q24H IVP 02/05/18 12:00 02/09/18 09:35 DC 02/08/18 14:49 Propofol 20 ml @ As Directed STK-MED ONCE IV 02/05/18 12:08 02/05/18 12:09 DC Lidocaine HCl (Xylocaine-Mpf 2% Vial) 2 ml STK-MED ONCE .ROUTE 02/05/18 12:08 02/05/18 12:09 DC Vancomycin HCl 1.5 gm/Sodium Chloride 500 ml @ 250 mls/hr 1X ONCE IV 02/05/18 14:00 02/05/18 15:59 DC 02/05/18 14:05 Vancomycin HCl (Vancomycin Random Level) 1 each 1X ONCE MC 02/06/18 05:00 02/06/18 05:01 DC 02/06/18 05:00 Sodium Chloride 1,000 ml @ 1,000 mls/hr Q1H PRN IV hypotension 02/06/18 08:12 02/06/18 14:11 DC Sodium Chloride 1,000 ml @ 400 mls/hr Q2H30M PRN IV PATENCY 02/06/18 08:12 02/06/18 20:11 DC Info (PHARMACY MONITORING -- do not chart) 1 each PRN DAILY PRN MC SEE COMMENTS 02/06/18 08:15 UNV Info (PHARMACY MONITORING -- do not chart) 1 each PRN DAILY PRN MC SEE COMMENTS 02/06/18 08:15 UNV Lidocaine HCl (Xylocaine-Mpf 1% 2ml Vial) 2 ml 1X ONCE ID 02/06/18 08:30 02/06/18 08:31 DC 02/06/18 08:30 Lidocaine HCl (Xylocaine-Mpf 2% Vial) 2 ml STK-MED ONCE .ROUTE 02/06/18 08:32 02/06/18 08:33 DC Diphenhydramine HCl (Benadryl) 50 mg 1X ONCE IVP 02/06/18 09:00 02/06/18 09:02 DC 02/06/18 09:10 Vancomycin HCl (Vancomycin Random Level) 1 each 1X ONCE MC 02/08/18 05:00 02/08/18 05:01 DC 02/08/18 05:00 Lidocaine HCl (Xylocaine-Mpf 2% Vial) 2 ml STK-MED ONCE .ROUTE 02/06/18 09:00 02/08/18 07:54 DC Polyethylene Glycol (miraLAX PACKET) 17 gm DAILY PO 02/08/18 12:30 02/13/18 14:16 Famotidine (Pepcid) 20 mg QHS PO 02/08/18 21:00 02/14/18 20:16 Vancomycin HCl 500 mg/Sodium Chloride 100 ml @ 100 mls/hr QTUTHSA IV 02/09/18 16:00 02/09/18 16:00 DC Sodium Chloride 1,000 ml @ 1,000 mls/hr Q1H PRN IV hypotension 02/09/18 08:21 02/09/18 14:20 DC Sodium Chloride 1,000 ml @ 400 mls/hr Q2H30M PRN IV PATENCY 02/09/18 08:21 02/09/18 20:20 DC Info (PHARMACY MONITORING -- do not chart) 1 each PRN DAILY PRN MC SEE COMMENTS 02/09/18 08:30 UNV Info (PHARMACY MONITORING -- do not chart) 1 each PRN DAILY PRN MC SEE COMMENTS 02/09/18 08:30 Cancel Diphenhydramine HCl (Benadryl) 50 mg 1X ONCE IVP 02/09/18 08:30 02/09/18 08:31 DC 02/09/18 09:06 Lidocaine HCl (Xylocaine-Mpf 2% Vial) 2 ml STK-MED ONCE .ROUTE 02/09/18 08:40 02/09/18 08:41 DC Linezolid/Dextrose 300 ml @ 300 mls/hr Q12HR IV 02/09/18 10:00 02/15/18 08:19 Gentamicin Sulfate 1 each PRN DAILY PRN MC SEE COMMENTS 02/09/18 09:30 02/15/18 12:09 Metronidazole 100 ml @ 100 mls/hr Q8HRS IV 02/09/18 14:00 02/15/18 11:52 Gentamicin Sulfate 140 mg/ Dextrose 103.5 ml @ 207 mls/hr 1X ONCE IV 02/09/18 12:00 02/09/18 12:29 DC 02/09/18 12:26 Lubiprostone (Amitiza) 8 mcg BIDWMEALS PO 02/09/18 17:00 02/13/18 18:38 Gentamicin Sulfate 1 each 1X ONCE MC 02/11/18 06:00 02/11/18 06:01 DC 02/11/18 06:00 Hydromorphone HCl (Dilaudid) 2 mg 1X ONCE IV 02/10/18 10:30 02/10/18 10:31 DC Lidocaine HCl (Xylocaine-Mpf 2% Vial) 2 ml STK-MED ONCE .ROUTE 02/09/18 09:00 02/10/18 13:19 DC Alteplase, Recombinant (Cathflo) 2 mg 1X ONCE INT CAT 02/10/18 21:30 02/10/18 21:31 DC 02/10/18 22:18 Silver Sulfadiazine (Silvadene) 25 erich STK-MED ONCE TP 02/11/18 05:56 02/11/18 06:57 DC Lidocaine HCl (Xylocaine 1% Pf 30ml Vial) 30 ml STK-MED ONCE .ROUTE 02/11/18 05:57 02/11/18 06:58 DC Ondansetron HCl (Zofran) 4 mg PRN Q6HRS PRN IV NAUSEA/VOMITING 02/11/18 07:15 02/11/18 12:42 DC Fentanyl Citrate (Fentanyl 2ml Vial) 25 mcg PRN Q5MIN PRN IV MILD PAIN 02/11/18 07:15 02/11/18 12:39 DC Fentanyl Citrate (Fentanyl 2ml Vial) 50 mcg PRN Q5MIN PRN IV MODERATE TO SEVERE PAIN 02/11/18 07:15 02/11/18 12:40 DC Morphine Sulfate (Morphine Sulfate) 1 mg PRN Q10MIN PRN IV SEVERE PAIN 02/11/18 07:15 02/11/18 12:41 DC Ringer's Solution 1,000 ml @ 30 mls/hr Q24H IV 02/11/18 07:15 02/11/18 19:14 Cancel Lidocaine HCl (Xylocaine-Mpf 1% 2ml Vial) 2 ml PRN 1X PRN ID PRIOR TO IV START 02/11/18 07:15 02/11/18 12:40 DC Hydromorphone HCl (Dilaudid) 0.5 mg PRN Q10MIN PRN IV SEV PAIN, Second choice 02/11/18 07:15 02/11/18 12:40 DC Prochlorperazine Edisylate (Compazine) 5 mg PACU PRN PRN IV NAUSEA, MRX1 02/11/18 07:15 02/11/18 12:42 DC Sodium Chloride 1,000 ml @ 75 mls/hr [id number] IV 02/11/18 07:30 02/13/18 09:35 DC 02/13/18 00:23 Propofol 20 ml @ As Directed STK-MED ONCE IV 02/11/18 07:20 02/11/18 07:21 DC Dexamethasone Sodium Phosphate (Decadron) 20 mg STK-MED ONCE .ROUTE 02/11/18 07:20 02/11/18 07:21 DC Famotidine (Pepcid Vial) 20 mg STK-MED ONCE .ROUTE 02/11/18 07:20 02/11/18 07:21 DC Lidocaine HCl (Lidocaine Pf 2% Vial) 5 ml STK-MED ONCE .ROUTE 02/11/18 07:20 02/11/18 07:21 DC Ondansetron HCl (Zofran) 4 mg STK-MED ONCE .ROUTE 02/11/18 07:20 02/11/18 07:21 DC Fentanyl Citrate (Fentanyl 2ml Vial) 100 mcg STK-MED ONCE .ROUTE 02/11/18 07:20 02/11/18 07:21 DC Midazolam HCl (Versed) 2 mg STK-MED ONCE .ROUTE 02/11/18 07:21 02/11/18 07:22 DC Ephedrine Sulfate (ePHEDrine PF IN SALINE SYRINGE) 50 mg STK-MED ONCE IV 02/11/18 08:22 02/11/18 08:23 DC Desflurane (Suprane) 30 ml STK-MED ONCE IH 02/11/18 08:41 02/11/18 08:42 DC Sodium Chloride 1,000 ml @ 1,000 mls/hr Q1H PRN IV hypotension 02/11/18 09:57 02/11/18 15:56 DC Albumin Human 200 ml @ 200 mls/hr 1X PRN PRN IV Hypotension 02/11/18 10:00 02/11/18 15:59 DC Sodium Chloride 1,000 ml @ 400 mls/hr Q2H30M PRN IV PATENCY 02/11/18 09:57 02/11/18 21:56 DC Info (PHARMACY MONITORING -- do not chart) 1 each PRN DAILY PRN MC SEE COMMENTS 02/11/18 10:00 UNV Info (PHARMACY MONITORING -- do not chart) 1 each PRN DAILY PRN MC SEE COMMENTS 02/11/18 10:00 UNV Lidocaine HCl (Xylocaine-Mpf 1% 2ml Vial) 2 ml 1X ONCE INJ 02/11/18 10:00 02/11/18 10:13 DC Gentamicin Sulfate 100 mg/ Dextrose 52.5 ml @ 105 mls/hr QTUTHSA IV 02/11/18 16:00 02/13/18 20:42 Gentamicin Sulfate 1 each 1X ONCE MC 02/13/18 05:00 02/13/18 05:00 DC Lidocaine HCl (Xylocaine-Mpf 2% Vial) 2 ml STK-MED ONCE .ROUTE 02/11/18 13:22 02/11/18 13:23 DC Lidocaine HCl (Xylocaine-Mpf 2% Vial) 2 ml STK-MED ONCE .ROUTE 02/11/18 14:00 02/12/18 08:48 DC Pantoprazole Sodium (Protonix) 40 mg DAILYAC PO 02/12/18 16:00 02/15/18 08:19 Sodium Chloride 1,000 ml @ 1,000 mls/hr Q1H PRN IV hypotension 02/13/18 08:36 02/13/18 14:35 DC Info (PHARMACY MONITORING -- do not chart) 1 each PRN DAILY PRN MC SEE COMMENTS 02/13/18 08:45 UNV Info (PHARMACY MONITORING -- do not chart) 1 each PRN DAILY PRN MC SEE COMMENTS 02/13/18 08:45 Insulin Glargine (Lantus) 15 units QHS SQ 02/13/18 21:00 02/14/18 13:04 DC Alteplase, Recombinant (Cathflo) 2 mg 1X ONCE INT CAT 02/13/18 19:00 02/13/18 19:01 DC 02/13/18 19:00 Insulin Human Lispro (HumaLOG) 0-9 UNITS TIDWMEALS SQ 02/14/18 14:00 02/14/18 17:53 Dextrose (Dextrose 50%-Water Syringe) 12.5 gm PRN Q15MIN PRN IV SEE COMMENTS 02/14/18 13:15 Hydromorphone HCl (Dilaudid) 2 mg 1X ONCE IV 02/15/18 14:00 02/15/18 14:01 DC 02/15/18 14:08 PE: GEN: NAD EXTREM: RLE wound LUNGS: room air ABD: soft NEURO/PSYCH: frustrated, upset A/P: S/p RLE bypass/infection Chronic anemia - stable Chronic nausea w/ h/o gastroparesis - on PPI, H2 bulmaro and e-mycin -Could consider increasing dose of PPI/H2 bulmaro or adding trial of Sucralfate HIDA with borderline gallbladder EF of 40%- pt with no pain during procedure. Cholecystectomy would not be necessary at this time. Diarrhea with fecal incontinence -C diff negative, continue probiotics Loss of vision -Pt favors transfer to hospital with inpatient retina specialists ([facility] This is under works currently. YULIYA PARADA Feb 15, 2018 15:04
[2018-02-15] MEDS: VITS A & D/LANOLIN TOPICAL OINTMENT 56GM TUBE. TP SCH ×2 (15:30→22:36)
[2018-02-15 19:00] VITALS: BP 122/47
[2018-02-15] MEDS: NIACIN ER 500 MG TABLET.ER PO SCH (20:09)
[2018-02-15] MEDS: ATORVASTATIN CALCIUM 40 MG TABLET. PO SCH (20:10)
[2018-02-15] MEDS: FENOFIBRATE,MICRONIZED 134 MG CAPSULE PO SCH (20:10)
[2018-02-15] MEDS: FAMOTIDINE 20 MG TABLET. PO SCH (20:11)
[2018-02-15] MEDS: PATCH REMOVAL. MC SCH (20:14)
[2018-02-15] MEDS: DARBEPOETIN ALFA 60 MCG/0.3 ML DISP.SYRIN. SQ SCH (20:15)
[2018-02-15 23:00] VITALS: BP 126/49
[2018-02-16 03:00] VITALS: BP 127/48
[2018-02-16] MEDS: HYDROmorphone 2 MG/ML VIAL IV PRN ×4 (03:50→18:12)
[2018-02-16] MEDS: PROCHLORPERAZINE 10 MG/2 ML VIAL. IV PRN ×2 (05:54→15:34)
[2018-02-16 06:05] LABS: HEMATOCRIT 22.2 % (36.0-47.0); HEMOGLOBIN 7.3 g/dL (12.0-15.5); RED BLOOD COUNT 2.31 x10^6/uL (3.50-5.40); RED CELL DISTRIBUTION WIDTH 18.5 % (11.5-14.5); WHITE BLOOD COUNT 12.6 x10^3/uL (4.0-11.0)
[2018-02-16 06:23] LABS: CALCIUM 7.8 mg/dL (8.5-10.1); CREATININE 4.5 mg/dL (0.6-1.0); GFR 10.3; POTASSIUM 3.7 mmol/L (3.5-5.1)
[2018-02-16 07:15] VITALS: BP 118/49
[2018-02-16] MEDS: PANTOPRAZOLE 40 MG TABLET.DR. PO SCH (07:30)
[2018-02-16] MEDS ORDERED: IV NORMAL SALINE 1000ML BAG 1,000 ML IV PRN ×2 (07:57)
[2018-02-16] MEDS: LUBIPROSTONE 8 MCG CAPSULE PO SCH (08:00)
[2018-02-16] MEDS: INSULIN LISPRO 300 UNITS/3 ML INSULN.PEN. SQ SCH ×3 (08:00→17:00)
[2018-02-16] MEDS ORDERED: LABETALOL 20 MG/4 ML DISP.SYRIN. IVP PRN (08:00)
[2018-02-16] MEDS: CARVEDILOL 12.5 MG TABLET. PO SCH ×3 (08:00→17:00)
[2018-02-16] MEDS ORDERED: DIALYSIS PATIENT. MC PRN (08:00)
[2018-02-16] MEDS: ASPIRIN ENTERIC COATED 81 MG TABLET.DR. PO SCH (08:00)
[2018-02-16] MEDS ORDERED: LIDOCAINE 2% PF 2ML VIAL. ONE (08:40)
[2018-02-16] MEDS ORDERED: diphenhydrAMINE 50 MG/ML VIAL ONE (08:40)
[2018-02-16] MEDS: LACTOBACILLUS RHAMNOSUS GG 1 CAPSULE. PO SCH ×2 (09:00→15:14)
[2018-02-16] MEDS: ERYTHROMYCIN BASE 250 MG TABLET PO SCH ×2 (09:00→15:14)
[2018-02-16] MEDS: TICAGRELOR 90 MG TABLET. PO SCH ×2 (09:00→15:15)
[2018-02-16] MEDS: VITS A & D/LANOLIN TOPICAL OINTMENT 56GM TUBE. TP SCH ×2 (09:00→14:00)
[2018-02-16] MEDS: POLYETHYLENE GLYCOL 3350 17 GM PACKET. PO SCH (09:00)
[2018-02-16] MEDS: FUROSEMIDE 80 MG TABLET. PO SCH ×2 (09:00→15:14)
--- NOTE | 2018-02-16 11:16 | PDOC3 ---
Discharge Summary Visit Information Date of Admission: Jan 26, 2018 Date of Discharge: Feb 16, 2018 Admitting Diagnosis Comment: RIght groin sx wound infection s/p i and d 02/01 and 02/05 with wound vac on, wound cx + Kpna recent right leg PAD s/p R fem to pop bypass ESRD on dialysis h/o L BKA CAD w/ hx CABG, EF 50% Diabetic retinopathy Vitreous hemorrhage, left > RT sec to DM H/O CAD with multiple stents Leukocytosis post steroids - trending down Right lower extremity swelling with superficial skin breakdown from injury on with abrasion and subsequent redness and swelling, treated with outpatient Keflex End-stage renal disease, on dialysis via AV fistula here ,at home per pt is on PD. ANTIBIOTIC ALLERGY TO MEROPENEM, PIPERACILLIN AND TAZOBACTAM CAUSING PEELING AND BLEEDING OF THE SKIN. ALSO, SULFA. TOLERATES KEFLEX AND HAS BEEN ON CEFAZOLIN, THOUGH HAS CAUSED ITCHING. H/o recent urinary tract infection, though urine cultures are negative, on Cipro POA for 5 days. A- fib, amiodarone therapy Gastroparesis, E. Mycin Left retinal optic disc drusen, bl blurry vision EGD 02/05 non erosive gatritis decubitus ulcer gastroparesis Distended hydropic gallbladder containing sludge. Hepatomegaly. 1.4 cm lobular lesion along the left renal cortex stable Final Diagnosis Problems Medical Problems: (1) Chronic renal failure Status: Acute Brief Hospital Course Allergies Allergies Coded Allergies Type Severity Reaction Last Updated Verified Sulfa (Sulfonamide Antibiotics) Allergy Severe Anaphylaxis 02/05/18 Yes meropenem Allergy Intermediate Rash 02/05/18 Yes piperacillin Allergy Intermediate Rash 02/05/18 Yes strawberry Allergy Intermediate 02/05/18 Yes tazobactam Allergy Intermediate 02/05/18 Yes cefazolin Adverse Reaction Intermediate Itching 02/05/18 Yes fentanyl Adverse Reaction Intermediate Nausea and Vomiting 02/05/18 Yes Vital Signs Vital Signs Date Time Temp Pulse Resp B/P (MAP) Pulse Ox O2 Delivery O2 Flow Rate FiO2 02/16/18 07:15 98.5 71 18 118/49 (72) 99 Nasal Cannula 2.0 98.5 Lab Results Laboratory Tests Test 02/14/18 16:30 02/14/18 20:21 02/15/18 04:00 02/15/18 07:06 Glucose (Fingerstick) 221 mg/dL (70-99) 140 mg/dL (70-99) 92 mg/dL (70-99) White Blood Count 12.9 x10^3/uL (4.0-11.0) Red Blood Count 2.44 x10^6/uL (3.50-5.40) Hemoglobin 7.8 g/dL (12.0-15.5) Hematocrit 23.3 % (36.0-47.0) Mean Corpuscular Volume 95 fL (79-100) Mean Corpuscular Hemoglobin 32 pg (25-35) Mean Corpuscular Hemoglobin Concent 34 g/dL (31-37) Red Cell Distribution Width 18.1 % (11.5-14.5) Platelet Count 262 x10^3/uL (140-400) Neutrophils (%) (Auto) 82 % (31-73) Lymphocytes (%) (Auto) 9 % (24-48) Monocytes (%) (Auto) 8 % (0-9) Eosinophils (%) (Auto) 1 % (0-3) Basophils (%) (Auto) 1 % (0-3) Neutrophils # (Auto) 10.6 x10^3uL (1.8-7.7) Lymphocytes # (Auto) 1.1 x10^3/uL (1.0-4.8) Monocytes # (Auto) 1.0 x10^3/uL (0.0-1.1) Eosinophils # (Auto) 0.1 x10^3/uL (0.0-0.7) Basophils # (Auto) 0.1 x10^3/uL (0.0-0.2) Sodium Level 140 mmol/L (136-145) Potassium Level 3.6 mmol/L (3.5-5.1) Chloride Level 102 mmol/L (98-107) Carbon Dioxide Level 31 mmol/L (21-32) Anion Gap 7 (6-14) Blood Urea Nitrogen 10 mg/dL (7-20) Creatinine 3.6 mg/dL (0.6-1.0) Estimated GFR (Cockcroft-Gault) 13.3 Glucose Level 107 mg/dL (70-99) Calcium Level 8.0 mg/dL (8.5-10.1) Test 02/15/18 11:29 02/15/18 16:44 02/15/18 21:14 02/16/18 05:47 Glucose (Fingerstick) 124 mg/dL (70-99) 132 mg/dL (70-99) 235 mg/dL (70-99) White Blood Count 12.6 x10^3/uL (4.0-11.0) Red Blood Count 2.31 x10^6/uL (3.50-5.40) Hemoglobin 7.3 g/dL (12.0-15.5) Hematocrit 22.2 % (36.0-47.0) Mean Corpuscular Volume 96 fL (79-100) Mean Corpuscular Hemoglobin 32 pg (25-35) Mean Corpuscular Hemoglobin Concent 33 g/dL (31-37) Red Cell Distribution Width 18.5 % (11.5-14.5) Platelet Count 223 x10^3/uL (140-400) Sodium Level 139 mmol/L (136-145) Potassium Level 3.7 mmol/L (3.5-5.1) Chloride Level 101 mmol/L (98-107) Carbon Dioxide Level 28 mmol/L (21-32) Anion Gap 10 (6-14) Blood Urea Nitrogen 18 mg/dL (7-20) Creatinine 4.5 mg/dL (0.6-1.0) Estimated GFR (Cockcroft-Gault) 10.3 Glucose Level 205 mg/dL (70-99) Calcium Level 7.8 mg/dL (8.5-10.1) Laboratory Tests Test 02/15/18 11:29 02/15/18 16:44 02/15/18 21:14 02/16/18 05:47 Glucose (Fingerstick) 124 mg/dL (70-99) 132 mg/dL (70-99) 235 mg/dL (70-99) White Blood Count 12.6 x10^3/uL (4.0-11.0) Red Blood Count 2.31 x10^6/uL (3.50-5.40) Hemoglobin 7.3 g/dL (12.0-15.5) Hematocrit 22.2 % (36.0-47.0) Mean Corpuscular Volume 96 fL (79-100) Mean Corpuscular Hemoglobin 32 pg (25-35) Mean Corpuscular Hemoglobin Concent 33 g/dL (31-37) Red Cell Distribution Width 18.5 % (11.5-14.5) Platelet Count 223 x10^3/uL (140-400) Sodium Level 139 mmol/L (136-145) Potassium Level 3.7 mmol/L (3.5-5.1) Chloride Level 101 mmol/L (98-107) Carbon Dioxide Level 28 mmol/L (21-32) Anion Gap 10 (6-14) Blood Urea Nitrogen 18 mg/dL (7-20) Creatinine 4.5 mg/dL (0.6-1.0) Estimated GFR (Cockcroft-Gault) 10.3 Glucose Level 205 mg/dL (70-99) Calcium Level 7.8 mg/dL (8.5-10.1) Brief Hospital Course Ms. Rosenbaum is a 52 old white female who stayed about 22 days with us, her problems started with complications of her right groin wound infection from fem pop bypass done recently. She underwent I&D on 1011 and now has indwelling wound VAC. Comanage with ID. We will go to LTAC on IV antibiotics and wound VAC. But course remarkable for some blurring of vision seeing blood smears in both eyes. She is a known diabetes with diabetic retinopathy. This was acute onset of almost blindness 2 weeks into her stay. Ophthalmology consulted. Diagnosed with vitreous hemorrhage on the left greater than the right. 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 But [facility] ophthalmology said would not advise anything different in terms of management. Maybe wait for 2-4 weeks until surgery can be done if at all needed. Advised to keep head elevated. I have discussed this findings with RN and patient. All meds I have reconciled. Patient has a lot of comorbidities namely dialysis ESRD Thursday some generalized weakness. That has all been addressed please refer to assessment and plan above Discharge disposition to LTAC Full code COnsults: multiple time 31 mins Discharge Information Condition at Discharge: Improved, Stable Disposition/Orders: Other (ltac) Scheduled Amiodarone Hcl (Amiodarone Hcl) 200 Mg Tablet, 1 TAB PO DAILY, #90 Ref 1 ( Reported) Entered as Reported by: ADINA STRATTON on 06/08/17 1617 Last Action: Continued on 01/27/181155 by ALEX NUNES RN Aspirin (Aspirin) 325 Mg Tablet, 325 MG PO DAILY, (Reported) Entered as Reported by: KAMAR ROBIN on 12/05/14 1840 Last Action: Continued on 01/27/181155 by ALEX NUNES RN Atorvastatin Calcium (Lipitor) 80 Mg Tablet, 80 MG PO HS for FOR CHOLESTEROL, # 30 Ref 0 (Reported) Entered as Reported by: TEQUILA HAM on 12/06/14 08 Last Action: Converted on 01/27/181155 by ALEX NUNES RN Calcitriol (Calcitriol) 0.25 Mcg Capsule, 1 CAP PO DAILY, #30 Ref 5 (Reported) Entered as Reported by: KAMAR OLIVIA on 01/08/18 1850 Last Action: Converted on 01/27/181155 by ALEX NUNES RN Carbamazepine (Tegretol) 200 Mg Tablet, 1 TAB PO BID, #60 Ref 1 (Reported) Entered as Reported by: LASHAE STEWART on 12/21/17 1334 Last Action: Continued on 01/27/181155 by ALEX NUNES RN Carvedilol (Carvedilol) 3.125 Mg Tablet, 12.5 MG PO BID, #60 Ref 3 (Reported) Entered as Reported by: AMBER STERN on 06/27/17 1400 Last Action: Continued on 01/27/181155 by ALEX NUNES RN Diltiazem Hcl (Cardizem Cd) 180 Mg Cap.er.24h, 120 MG PO DAILY for FOR HYPERTENSION, #30 Ref 0 (Reported) Entered as Reported by: ADINA STRATTON on 06/08/17 1619 Last Action: Converted on 01/27/181155 by ALEX NUNES RN Erythromycin Base (Erythromycin) 250 Mg Capsule.dr, 250 MG PO BID, (Reported) Entered as Reported by: NILA GARCIA on 06/24/17 1527 Last Action: Converted on 01/27/181155 by ALEX NUNES RN Fenofibrate Nanocrystallized (Tricor) 145 Mg Tablet, 1 TAB PO HS, #30 Ref 5 ( Reported) Entered as Reported by: TEQUILA HAM on 12/06/14 0829 Last Action: Converted on 01/27/181155 by ALEX NUNES RN Fluconazole (Diflucan) 100 Mg Tablet, 100 MG PO PRN, (Reported) Entered as Reported by: BRYN YBARRA on 10/14/17 1607 Last Action: Converted on 01/27/181155 by ALEX NUNES RN Folic Acid/Vitamin B Comp W-C (Nephro-Shabbir Tablet) 0.8 Mg Tablet, 1 TAB PO DAILY , #30 Ref 5 (Reported) Entered as Reported by: MARIAH SAMUEL RN on 08/15/16 1450 Last Action: Continued on 01/27/181155 by ALEX NUNES RN Furosemide (Furosemide) 80 Mg Tablet, 80 MG PO BID, (Reported) Entered as Reported by: KAMAR ROBIN on 12/05/14 1840 Last Action: Continued on 01/27/181155 by ALEX NUNES RN Insulin Aspart (Novolog) 100 Unit/1 Ml Cartridge, 0 SQ TIDAC, (Reported) sliding scale Entered as Reported by: TEQUILA HAM on 12/06/14 0829 Insulin Glargine,Hum.rec.anlog (Lantus Solostar) 100 Unit/1 Ml Insuln.pen, 22 UNIT SQ QHS, #15 Ref 3 (Reported) Entered as Reported by: DANA VENCES on 12/02/17 2359 Last Action: Continued on 01/27/181155 by ALEX NUNES RN Morphine Sulfate (Morphine Sulfate Er) 15 Mg Tablet.er, 15 MG PO BID, #60 Prescribed by: ROMI GOSS on 01/09/16 1029 Last Action: Continued on 01/27/181155 by ALEX NUNES RN Niacin (Niacin) 500 Mg Tablet, 500 MG PO HS, (Reported) Entered as Reported by: TEQUILA HAM on 12/06/14 0829 Last Action: Converted on 01/27/181155 by ALEX NUNES RN Oxycodone/Apap 10-325 (Percocet 10-325 Mg Tablet) 1 Each Tablet, 1 TAB PO Q4HRS for PAIN, #40 Ref 0 Prescribed by: ROMI GOSS on 12/05/17 1152 Ticagrelor (Brilinta) 90 Mg Tablet, 90 MG PO BID for 30 Days, #60 Prescribed by: DAVID PINTO on 02/08/17 1338 Ticagrelor (Brilinta) 90 Mg Tablet, 90 MG PO BID, (Reported) Entered as Reported by: ALEX NUNES RN on 01/28/18 0932 Last Taken: UNKNOWN on Unknown Date & Time Last Action: Continued on 01/28 1406 by ALEX NUNES RN Scheduled PRN Albuterol Sulfate (Proventil Hfa Inhaler) 6.7 Gm Hfa.aer.ad, 2 PUFF IH BID PRN for FOR ASTHMA, Ref 0 (Reported) Entered as Reported by: MU KOWALSKI on 02/04/172058 Last Action: Converted on 01/27/181155 by ALEX NUNES RN Docusate Sodium (Docusate Sodium) 100 Mg Capsule, 1 CAP PO PRN PRN for CONSTIPATION, #30 (Reported) Entered as Reported by: KAMAR ROBIN on 12/05/141839 Lidocaine (Lidocaine) 1 Each Adh..patch, 1 EACH TP PRN DAILY PRN for PAIN, ( Reported) Entered as Reported by: RAMIRO HARGROVE on 01/27/18 010 Last Taken: Unknown Dose on 01/25/18 Last Action: Converted on 01/27/181155 by ALEX NUNES RN Nitroglycerin (Nitrostat) 0.4 Mg Tab.subl, 0.4 MG SL PRN Q5MIN PRN for CHEST PAIN, (Reported) Take as needed for chest pain Entered as Reported by: KAMAR ROBIN on 12/05/141839 Last Action: Continued on 01/27/181155 by ALEX NUNES RN Nystatin (Nystatin) 15 Gm Powder, 1 IRMA TP PRN BID PRN for SKIN BREAKDOWN, #1 ( Reported) Entered as Reported by: MU KOWALSKI on 02/05/17 0307 Last Action: Continued on 01/27/181155 by ALEX NUNES RN Ondansetron Hcl (Zofran) 4 Mg Tablet, 4 MG PO Q6-8HRS PRN for NAUSEA/VOMITING, ( Reported) Entered as Reported by: JOSE ENRIQUE STRICKLAND on 10/08/162003 Last Action: Converted on 01/27/181155 by ALEX NUNES RN Tramadol Hcl (Tramadol Hcl) 50 Mg Tablet, 50 MG PO Q4HRS PRN for HEADACHE, ( Reported) Entered as Reported by: PAIGE OROSCO on 12/20/17 0025 Last Action: Continued on 01/27/18 1156 by AGUSTÍN REARDON CHERRIE Y MD Feb 16, 2018 11:16
--- NOTE | 2018-02-16 11:36 | PDOC ---
Renal-Progress Notes Subjective Notes Notes NO NEW COMPLAINTS History of Present Illness Hx of present illness STABLE Vitals Vitals Vital Signs Date Time Temp Pulse Resp B/P (MAP) Pulse Ox O2 Delivery O2 Flow Rate FiO2 02/16/18 07:15 98.5 71 18 118/49 (72) 99 Nasal Cannula 2.0 98.5 Weight Weight [ ] I.O. Intake and Output Intake and Output 02/16/18 07:00 Intake Total 1080 ml Output Total 0 ml Balance 1080 ml Intake Oral 1080 ml Output Urine Total 0 ml # Bowel Movements 2 Labs Labs Laboratory Tests Test 02/15/18 16:44 02/15/18 21:14 02/16/18 05:47 Glucose (Fingerstick) 132 mg/dL (70-99) 235 mg/dL (70-99) White Blood Count 12.6 x10^3/uL (4.0-11.0) Red Blood Count 2.31 x10^6/uL (3.50-5.40) Hemoglobin 7.3 g/dL (12.0-15.5) Hematocrit 22.2 % (36.0-47.0) Mean Corpuscular Volume 96 fL (79-100) Mean Corpuscular Hemoglobin 32 pg (25-35) Mean Corpuscular Hemoglobin Concent 33 g/dL (31-37) Red Cell Distribution Width 18.5 % (11.5-14.5) Platelet Count 223 x10^3/uL (140-400) Sodium Level 139 mmol/L (136-145) Potassium Level 3.7 mmol/L (3.5-5.1) Chloride Level 101 mmol/L (98-107) Carbon Dioxide Level 28 mmol/L (21-32) Anion Gap 10 (6-14) Blood Urea Nitrogen 18 mg/dL (7-20) Creatinine 4.5 mg/dL (0.6-1.0) Estimated GFR (Cockcroft-Gault) 10.3 Glucose Level 205 mg/dL (70-99) Calcium Level 7.8 mg/dL (8.5-10.1) Micro Micro Microbiology 02/06/18 Blood Culture - Final, Complete NO GROWTH AFTER 5 DAYS 01/27/18 Anaerobic/Aerobic Culture - Final, Complete 01/27/18 Anaerobic Culture Result 1 (ROSALIND) - Final, Complete 01/27/18 Aerobic Culture - Final, Complete 01/27/18 Aerobic Culture Result 1 (ROSALIND) - Final, Complete 01/27/18 Antimicrobic Susceptibility - Final, Complete 01/27/18 Gram Stain - Final, Complete 01/27/18 Gram Stain Result 1 (ROSALIND) - Final, Complete 01/27/18 Gram Stain Result 2 (ROSALIND) - Final, Complete Review of Systems Constitutional: yes: weakness, alert, oriented Ears/Nose/Throat: Yes: no symptom reported Eyes: Yes: no symptom reported Pulmonary: Yes no symptom reported Cardiovascular: Yes no symptom reported Gastrointestional: Yes: no symptom reported Genitourinary: Yes: no symptom reported Musculoskeletal: Yes: leg pain Skin: Yes color change Psychiatric/Neurological: Yes: no symptom reported Physical Exam General Appearance: no apparent distress Respiratory: bilateral CTA Heart: S1S2 Abdomen: soft, bowel sounds present Genitourinary: bladder flat Extremities: pulses present Musculoskeletal: low back pain (and neck pain), Osteoarthritis Assessment Assessment IMP ESRD-ON PD BUT HAS FUNCTIONING RIGHT ARM AVF ANEMIA DM II HTN PAD R LE CELLULITIS LOSS OF VISION-?RETINAL BLEED PLAN HD TODAY UF TO DW BACK TO PD WHEN HOME PD CATH FLUSH ANTIBIOTICS WOUND CARE OPHTHALMOLOGY EVAL WILL FOLLOW TO SS SOON CHARLY ZAVALA MD Feb 16, 2018 11:36
--- NOTE | 2018-02-16 12:04 | PDOC ---
Infectious Disease Note Subjective Subjective pt is feeling good, ROS ROS no n/v/d/sob Vital Sign Vital Signs Vital Signs Date Time Temp Pulse Resp B/P (MAP) Pulse Ox O2 Delivery O2 Flow Rate FiO2 02/16/18 07:15 98.5 71 18 118/49 (72) 99 Nasal Cannula 2.0 98.5 Physical Exam PHYSICAL EXAM GENERAL: comfortable HENT: OC/Op- dry LUNGS: Clear. HEART: S1, S2 regular. ABDOMEN: Soft, NT, ND EXTREMITIES: Left BKA. RLE less swollen and red; + wrinkles. wound vac in place Heel without wound NEUROLOGIC: Alert, responds appropriately SKIN: without rash Tunnelled [facility] (01/29) clean Labs Lab Laboratory Tests Test 02/15/18 16:44 02/15/18 21:14 02/16/18 05:47 Glucose (Fingerstick) 132 mg/dL (70-99) 235 mg/dL (70-99) White Blood Count 12.6 x10^3/uL (4.0-11.0) Red Blood Count 2.31 x10^6/uL (3.50-5.40) Hemoglobin 7.3 g/dL (12.0-15.5) Hematocrit 22.2 % (36.0-47.0) Mean Corpuscular Volume 96 fL (79-100) Mean Corpuscular Hemoglobin 32 pg (25-35) Mean Corpuscular Hemoglobin Concent 33 g/dL (31-37) Red Cell Distribution Width 18.5 % (11.5-14.5) Platelet Count 223 x10^3/uL (140-400) Sodium Level 139 mmol/L (136-145) Potassium Level 3.7 mmol/L (3.5-5.1) Chloride Level 101 mmol/L (98-107) Carbon Dioxide Level 28 mmol/L (21-32) Anion Gap 10 (6-14) Blood Urea Nitrogen 18 mg/dL (7-20) Creatinine 4.5 mg/dL (0.6-1.0) Estimated GFR (Cockcroft-Gault) 10.3 Glucose Level 205 mg/dL (70-99) Calcium Level 7.8 mg/dL (8.5-10.1) Micro ANAEROBIC-AEROBIC CULTURE Final Final report ANAEROBIC RES 1 Final Comment No anaerobic growth in 72 hours. AEROBIC CULT Final Final report AEROBIC RES 1 Final Klebsiella pneumoniae 4+ ANTIMICROBIAL SUSCEPTIBILITY Final Comment S = Susceptible; I = Intermediate; R = Resistant P = Positive; N = Negative MICS are expressed in micrograms per mL Antibiotic RSLT#1 RSLT#2 RSLT#3 RSLT#4 Amoxicillin/Clavulanic Acid S<=2 Ampicillin R>=32 Cefepime S<=0.12 Ceftriaxone S<=0.25 Cefuroxime S =4 Ciprofloxacin S =1 Ertapenem S<=0.12 Gentamicin S<=1 Imipenem S<=0.25 Levofloxacin S =1 Meropenem S<=0.25 Piperacillin/Tazobactam S<=4 Tetracycline S<=1 Objective Assessment Right leg surgery site infection s/p excisional debridement; muscle flap & wound VAC placement on 01/27 C/S + . Klebsiella (R amp) and G/S GPCs , S/P repeat I and D on 02/01 vascular planning for wound vac change later this week and early next week Leucocytosis ? reactive from gi bleed PAD s/p leg bypass on 01/06 ESRD Multiple antibiotic allergies Amiodarone therapy h/o VRE, MRSA, c. diff Nausea and vomiting awaiting egd Vision loss both eyes Plan Plan of Care Zyvox with h/o VRE Gent. random trough 3.6 Flagyl 02/09 was on Vanc, Cefepime prior vision loss, need to be transferred to [facility] for ophthalmology eval still awaiting transfer, [facility] refused per staff, was to be tx to [facility] last night but was not able to transfer Probiotics Local wound care stool for c. diff neg Supportive care pt was seen by Dr Jones, no note available, but diagnosed with zara retinal hemorrhage, and recommended to be transferred to [facility] for retinal surgery, dr Mcbride d/w Retinal surgeon and he said no urgency, she will be seen in 2 wks by them. Pt is comfortable with this plan. d/w DANDY Hanson MD Feb 16, 2018 12:04
--- NOTE | 2018-02-16 14:31 | PDOC ---
Subjective: Subjective: Nausea and retching yesterday - better today. Objective: Objective: Reviewed w/ RN - transfer to [facility] after dialysis. Vital Signs: Vital Signs Date Time Temp Pulse Resp B/P (MAP) Pulse Ox O2 Delivery O2 Flow Rate FiO2 02/16/18 07:15 98.5 71 18 118/49 (72) 99 Nasal Cannula 2.0 98.5 Labs: Laboratory Tests Test 02/15/18 16:44 02/15/18 21:14 02/16/18 05:47 Glucose (Fingerstick) 132 mg/dL 235 mg/dL White Blood Count 12.6 x10^3/uL Red Blood Count 2.31 x10^6/uL Hemoglobin 7.3 g/dL Hematocrit 22.2 % Mean Corpuscular Volume 96 fL Mean Corpuscular Hemoglobin 32 pg Mean Corpuscular Hemoglobin Concent 33 g/dL Red Cell Distribution Width 18.5 % Platelet Count 223 x10^3/uL Sodium Level 139 mmol/L Potassium Level 3.7 mmol/L Chloride Level 101 mmol/L Carbon Dioxide Level 28 mmol/L Anion Gap 10 Blood Urea Nitrogen 18 mg/dL Creatinine 4.5 mg/dL Estimated GFR (Cockcroft-Gault) 10.3 Glucose Level 205 mg/dL Calcium Level 7.8 mg/dL PE: GEN: dialzying LUNGS: CTAB HEART: RRR ABD: soft, non-tender NEURO/PSYCH: A & O 3, flat A/P: Chronic anemia - stable Chronic nausea -h/o gastroparesis and GERD -HIDA w/ GB EF 40% -on e-mycin BID, H2 bulmaro QHS, and PPI Q a.m. ---> has h/o C Diff and ESRD on HD -- Plans to DC to [facility]. 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 Re: gastroparesis - did well on Reglan before changing to e-mycin w/ concern for renal issues - could try Reglan in place of e-mycin (w/ C Diff history) - will also defer to primary and nephrology. Had constipation but now stooling significantly - okay to stop Amitiza and Miralax, resume later if indicated (particularly if planning to continue narcotics for pain). EDDY IGLESIAS Feb 16, 2018 14:30
[2018-02-16] MEDS: CALCITRIOL 0.25 MCG CAPSULE. PO SCH (15:09)
[2018-02-16] MEDS: MORPHINE ER 15 MG TABLET.ER PO SCH (15:10)
[2018-02-16] MEDS: AMIODARONE HCL 200 MG TABLET. PO SCH (15:14)
[2018-02-16] MEDS: FOLIC/VIT B COMP W-C (RENAL) TABLET. PO SCH (15:14)
[2018-02-16] MEDS: carBAMazepine 200 MG TABLET PO SCH (15:15)
[2018-02-16 15:35] VITALS: BP 97/56
[2018-02-16] MEDS ORDERED: diphenhydrAMINE 50 MG/ML VIAL IVP ONE (16:00)
[2018-02-16] MEDS ORDERED: LIDOCAINE 2% PF 2ML VIAL. INJ ONE (16:00)
[2018-02-16 16:19] VITALS: BP 104/83
--- NOTE | 2018-02-16 16:23 | PDOC ---
PROGRESS NOTES Assessment Assessment Bilateral vision decrease x 2 weeks, worse x 4 days before admission. Diabetic retinopathy with vitreous hemorrhage. Renal failure on dialysis. DM x 30 years. CAD, s/p CABG. Anemia. Left BKA. Right thigh wounds. Right fem-pop bypass. RECOMMENDATIONS/PLAN: Continue ASA daily. Continue Lipitor HS. Control hyperglycemia. Treat medical diseases. Transfer to hospital with inpatient Ophthalmology services such as [facility], , etc. per suggestion of [facility] ophthalmology, but transfer was declined by both hospitals per staff stating no intervention at the current state but patient can be seen on outpatient basis after 2-4 weeks. Past Medical History Cardiovascular: AFib, CAD, CHF, HTN, [place], Hyperlipidemia, Other (heart murmur, peripheral vascular disease, deep venous thrombosis) Pulmonary: Asthma, Bronchitis, COPD, Pneumonia, Other (sleep apnea) CENTRAL NERVOUS SYSTEM: Peripheral neuropathy GI: Irritable bowel disease, Peptic Ulcer disease, Other (C. difficile) Psych: Anxiety, Depression Musculoskeletal: low back pain (and neck pain), Osteoarthritis Rheumatologic: Fibromyalgia Renal/: Chronic renal failure (dialysis) Endocrine: Diabetes Dermatology: Other (various wounds, MRSA, VRE) Past Surgical History CABG, Cataract Removal, Hysterectomy, Other (Arnold-Chiari malformation repair, left below the knee application, right femoropopliteal bypass, arteriovenous shunt, coronary stent, right second and third toes amputations, arthroscopic knee surgery) Family History Cancer, CAD, DM Social History , quit smoking, rare alcohol, disabled, gets around in a wheelchair ALLERGY: Reviewed. MEDICATIONS: Refer to MAR REVIEW OF SYSTEMS: Constitutional: No malnutrition, weight loss, cachexia. Head: No traumatic brain or head injury. Skin: No edema, or rash. Ear: No infection. Eyes: Vision loss. Nose: No bleeding or purulent discharges. Hearing: No hearing decrease. Neck: No injury. Breast: No history of cancer, masses, or discharges. Cardiac: CAD, s/p CABG, HLD Pulmonary: No COPD.. GI: No GI Ulcer, GI bleeding. Urinary/genital: Renal failure. Endocrine: Diabetes Mellitus. Skeletomuscular: No muscular atrophy, deformity. Neurological: see HP. Psychiatric: Denies drug use/abuse. Otherwise, not -plpcz review of systems. PHYSICAL EXAMINATION: General appearance in no acute distress. HEENT: Normocephalic and nontraumatic. Eyes, nose, ears, and throat are unremarkable. Neck is supple. No lymphadenopathy. No Crepitus. Cardiovascular: S1, S2, regular rate and rhythm. Pulmonary: Clear to auscultation bilaterally. Abdomen: Bowel sounds are positive. Abdomen is soft, nontender, and nondistended. Extremities: No rash, lesions. No restriction of range of motion NEUROLOGICAL EXAMINATION: Awake. Oriented to time, place and person. PERRL. EOMI. Can see items within 2 feet. CN: no focal findings. Muscle tone: within normal. Muscle strength: 4+ DTR: 2- UE and right LE. Plantar reflex: Neutral response on right side. Left BKA. Gait: Unable to walk. Sensory exam: no abnormal findings. No acute cerebellar signs elicited. F-T-N test fine. Objective Objective Vital Signs Date Time Temp Pulse Resp B/P (MAP) Pulse Ox O2 Delivery O2 Flow Rate FiO2 02/16/18 15:35 97/56 (70) 02/16/18 15:14 71 02/16/18 07:15 98.5 18 99 Nasal Cannula 2.0 98.5 Intake and Output 02/16/18 07:00 Intake Total 1080 ml Output Total 0 ml Balance 1080 ml Intake Oral 1080 ml Output Urine Total 0 ml # Bowel Movements 2 Vitals Signs Vitals VS - Last 72 Hours, by Label Date Time Temp Pulse Resp B/P (MAP) Pulse Ox O2 Delivery O2 Flow Rate FiO2 02/16/18 15:35 97/56 (70) 02/16/18 15:14 71 118/49 02/16/18 07:15 98.5 71 18 118/49 (72) 99 Nasal Cannula 2.0 98.5 02/16/18 04:20 Room Air 02/16/18 03:50 Room Air 02/16/18 03:00 97.7 51 18 127/48 (74) 98 Nasal Cannula 2.0 97.7 02/16/18 00:10 Room Air 02/15/18 23:00 97.7 84 18 126/49 (74) 100 Nasal Cannula 2.0 97.7 02/15/18 22:35 Room Air 02/15/18 20:10 Room Air 02/15/18 20:00 Nasal Cannula 2.0 02/15/18 19:00 97.7 74 18 122/47 (72) 100 Room Air 97.7 02/15/18 17:28 18 100 2.0 02/15/18 16:58 73 140/58 02/15/18 16:58 20 100 Nasal Cannula 2.0 02/15/18 14:55 97.9 73 18 140/58 (85) 100 Nasal Cannula 2.0 97.9 02/15/18 14:38 20 100 Nasal Cannula 2.0 02/15/18 14:08 20 100 Nasal Cannula 2.0 02/15/18 12:20 20 100 2.0 02/15/18 11:13 97.7 72 18 144/56 (85) 100 Nasal Cannula 2.0 97.7 02/15/18 08:29 20 100 Nasal Cannula 2.0 02/15/18 08:21 73 157/50 02/15/18 08:20 20 100 Nasal Cannula 2.0 02/15/18 08:20 73 157/50 02/15/18 08:19 73 157/50 02/15/18 08:00 Nasal Cannula 2.0 02/15/18 07:00 97.8 73 18 157/50 (85) 100 Nasal Cannula 2.0 97.8 Laboratory Laboratory Laboratory Tests Test 02/15/18 16:44 02/15/18 21:14 02/16/18 05:47 02/16/18 15:24 Glucose (Fingerstick) 132 mg/dL (70-99) 235 mg/dL (70-99) 132 mg/dL (70-99) White Blood Count 12.6 x10^3/uL (4.0-11.0) Red Blood Count 2.31 x10^6/uL (3.50-5.40) Hemoglobin 7.3 g/dL (12.0-15.5) Hematocrit 22.2 % (36.0-47.0) Mean Corpuscular Volume 96 fL (79-100) Mean Corpuscular Hemoglobin 32 pg (25-35) Mean Corpuscular Hemoglobin Concent 33 g/dL (31-37) Red Cell Distribution Width 18.5 % (11.5-14.5) Platelet Count 223 x10^3/uL (140-400) Sodium Level 139 mmol/L (136-145) Potassium Level 3.7 mmol/L (3.5-5.1) Chloride Level 101 mmol/L (98-107) Carbon Dioxide Level 28 mmol/L (21-32) Anion Gap 10 (6-14) Blood Urea Nitrogen 18 mg/dL (7-20) Creatinine 4.5 mg/dL (0.6-1.0) Estimated GFR (Cockcroft-Gault) 10.3 Glucose Level 205 mg/dL (70-99) Calcium Level 7.8 mg/dL (8.5-10.1) Microbiology 02/06/18 Blood Culture - Final, Complete NO GROWTH AFTER 5 DAYS 01/27/18 Anaerobic/Aerobic Culture - Final, Complete 01/27/18 Anaerobic Culture Result 1 (ROSALIND) - Final, Complete 01/27/18 Aerobic Culture - Final, Complete 01/27/18 Aerobic Culture Result 1 (ROSALIND) - Final, Complete 01/27/18 Antimicrobic Susceptibility - Final, Complete 01/27/18 Gram Stain - Final, Complete 01/27/18 Gram Stain Result 1 (ROSALIND) - Final, Complete 01/27/18 Gram Stain Result 2 (ROSALIND) - Final, Complete Medication Medications Current Medications Diphenhydramine HCl (Benadryl) 50 mg 1X ONCE IVP Last administered on at 08:55; Start 02/16/18 at 16:00; Stop 02/16/18 at 16:01; Status DC Diphenhydramine HCl (Benadryl) 50 mg STK-MED ONCE .ROUTE ; Start 02/16/18 at 08 :40; Stop 02/16/18 at 08:41; Status DC Info (PHARMACY MONITORING -- do not chart) 1 each PRN DAILY PRN MC SEE COMMENTS ; Start 02/16/18 at 08:00 Labetalol HCl (Normodyne Iv Push) 10 mg PRN Q1HR PRN IVP SBP > 180; Start at 08:00; Stop 02/17/18 at 07:59 Lidocaine HCl (Xylocaine-Mpf 2% Vial) 2 ml 1X ONCE INJ Last administered on at 08:44; Start 02/16/18 at 16:00; Stop 02/16/18 at 16:01; Status DC Lidocaine HCl (Xylocaine-Mpf 2% Vial) 2 ml STK-MED ONCE .ROUTE ; Start at 08:40; Stop 02/16/18 at 08:41; Status DC Sodium Chloride 1,000 ml @ 400 mls/hr Q2H30M PRN IV PATENCY; Start 02/16/18 at 07:57; Stop 02/16/18 at 19:56 Sodium Chloride 1,000 ml @ 1,000 mls/hr Q1H PRN IV hypotension; Start at 07:57; Stop 02/16/18 at 13:56; Status DC Comment Review of Relevant I have reviewed the following items bert (where applicable) has been applied. KRAIG HUNT MD Feb 16, 2018 16:23
[2018-02-16] MEDS: GENTAMICIN SULFATE IV SCH (17:36)
[2018-02-16] MEDS: DEXTROSE 5% IV SCH (17:36)
== END 2018-02-16 19:00 | DRG 856 ==
LOC: ER 21:18 → 5 SOUTH 22:55
PROVIDERS: ADMIT Internal Medicine; ATTEND Internal Medicine
PROC: 0JBL0ZZ Excision of Right Upper Leg Subcutaneous Tissue and Fascia, Open Approach (ICD-10-PCS; 2018-01-27)
PROC: 0YB70ZZ Excision of Right Femoral Region, Open Approach (ICD-10-PCS; 2018-01-27)
PROC: 0KR Muscles, Replacement (ICD-10-PCS; 2018-01-27)
PROC: 0JBL0ZZ Excision of Right Upper Leg Subcutaneous Tissue and Fascia, Open Approach (ICD-10-PCS; principal; 2018-01-27 13:15)
PROC: 5A1D70Z Performance of Urinary Filtration, Intermittent, Less than 6 Hours Per Day (ICD-10-PCS; 2018-01-28)
PROC: 0JHF3XZ Insertion of Tunneled Vascular Access Device into Left Upper Arm Subcutaneous Tissue and Fascia, Percutaneous Approach (ICD-10-PCS; 2018-01-29)
PROC: 02HV33Z Insertion of Infusion Device into Superior Vena Cava, Percutaneous Approach (ICD-10-PCS; 2018-01-29)
PROC: B548ZZA Ultrasonography of Superior Vena Cava, Guidance (ICD-10-PCS; 2018-01-29)
PROC: B5181ZA Fluoroscopy of Superior Vena Cava using Low Osmolar Contrast, Guidance (ICD-10-PCS; 2018-01-29)
PROC: 5A1D70Z Performance of Urinary Filtration, Intermittent, Less than 6 Hours Per Day (ICD-10-PCS; 2018-01-30)
PROC: 0YB50ZZ Excision of Right Inguinal Region, Open Approach (ICD-10-PCS; 2018-02-01)
PROC: 5A1D70Z Performance of Urinary Filtration, Intermittent, Less than 6 Hours Per Day (ICD-10-PCS; 2018-02-02)
PROC: 5A1D70Z Performance of Urinary Filtration, Intermittent, Less than 6 Hours Per Day (ICD-10-PCS; 2018-02-04)
PROC: 0DJ08ZZ Inspection of Upper Intestinal Tract, Via Natural or Artificial Opening Endoscopic (ICD-10-PCS; 2018-02-05)
PROC: 30233N1 Transfusion of Nonautologous Red Blood Cells into Peripheral Vein, Percutaneous Approach (ICD-10-PCS; 2018-02-05)
PROC: 5A1D70Z Performance of Urinary Filtration, Intermittent, Less than 6 Hours Per Day (ICD-10-PCS; 2018-02-09)
PROC: 0JBL0ZZ Excision of Right Upper Leg Subcutaneous Tissue and Fascia, Open Approach (ICD-10-PCS; 2018-02-11)
PROC: 5A1D70Z Performance of Urinary Filtration, Intermittent, Less than 6 Hours Per Day (ICD-10-PCS; 2018-02-13)
DX: T81.40XA Infection following a procedure, unspecified, initial encounter (principal); A41.9 Sepsis, unspecified organism; N18.6 End stage renal disease; E43 Unspecified severe protein-calorie malnutrition; T81.30XA Disruption of wound, unspecified, initial encounter; L03.115 Cellulitis of right lower limb; I13.2 Hypertensive heart and chronic kidney disease with heart failure and with stage 5 chronic kidney disease, or end stage renal disease; E11.52 Type 2 diabetes mellitus with diabetic peripheral angiopathy with gangrene; K82.1 Hydrops of gallbladder; K92.0 Hematemesis; Z89.512 Acquired absence of left leg below knee; Z88.6 Allergy status to analgesic agent; Z88.7 Allergy status to serum and vaccine; Z88.8 Allergy status to other drugs, medicaments and biological substances; I35.0 Nonrheumatic aortic (valve) stenosis; I25.10 Atherosclerotic heart disease of native coronary artery without angina pectoris; I50.9 Heart failure, unspecified; E78.5 Hyperlipidemia, unspecified; J44.9 Chronic obstructive pulmonary disease, unspecified; M79.7 Fibromyalgia; Z95.1 Presence of aortocoronary bypass graft; Z90.710 Acquired absence of both cervix and uterus; Z83.3 Family history of diabetes mellitus; Z82.49 Family history of ischemic heart disease and other diseases of the circulatory system; K21.9 Gastro-esophageal reflux disease without esophagitis; E21.3 Hyperparathyroidism, unspecified; E11.22 Type 2 diabetes mellitus with diabetic chronic kidney disease; E11.319 Type 2 diabetes mellitus with unspecified diabetic retinopathy without macular edema; E11.65 Type 2 diabetes mellitus with hyperglycemia; E11.69 Type 2 diabetes mellitus with other specified complication; Z99.2 Dependence on renal dialysis; E11.43 Type 2 diabetes mellitus with diabetic autonomic (poly)neuropathy; K31.84 Gastroparesis; D64.9 Anemia, unspecified; Z88.1 Allergy status to other antibiotic agents; E11.36 Type 2 diabetes mellitus with diabetic cataract; E11.649 Type 2 diabetes mellitus with hypoglycemia without coma; G89.29 Other chronic pain; G47.30 Sleep apnea, unspecified; H35.30 Unspecified macular degeneration; H54.3 Unqualified visual loss, both eyes; I48.91 Unspecified atrial fibrillation; K29.70 Gastritis, unspecified, without bleeding; K58.0 Irritable bowel syndrome with diarrhea; K83.8 Other specified diseases of biliary tract; L89.90 Pressure ulcer of unspecified site, unspecified stage; Z79.4 Long term (current) use of insulin; Z79.82 Long term (current) use of aspirin; Z79.899 Other long term (current) drug therapy; Z87.11 Personal history of peptic ulcer disease; Z95.5 Presence of coronary angioplasty implant and graft; Z95.828 Presence of other vascular implants and grafts; F32.9 Major depressive disorder, single episode, unspecified; F41.9 Anxiety disorder, unspecified; D50.0 Iron deficiency anemia secondary to blood loss (chronic); Z88.2 Allergy status to sulfonamides; H43.12 Vitreous hemorrhage, left eye
CPT/HCPCS: 36415; 36558; 43235; 70450; 71045; 76700; 76937; 77001; 78226; 80048; 80053; 80069; 80170; 80202; 82607; 82962; 83605; 83690; 84443; 85007; 85025; 85027; 86706; 86850; 86900; 86901; 86902; 86922; 87040; 87071; 87075; 87186; 87324; 87340; 90471; 90756; 94640; 94760; 96374; 96375; 99152; A7015; A9537; C1751; C1892; J0692; J0696; J0780; J0881; J1100; J1170; J1200; J1580; J1815; J2001; J2020; J2250; J2270; J2405; J2704; J2997; J3010; J3370; J3490; J7030; J7040; J7042; J7120; J7613; P9016; P9046; Q0162; S0028; 97530; 99285-25; A4461; Q2035

== ENCOUNTER → 2018-03-10 | Day surgery (SDC) | payer MEDICARE ==
[~2018-03-10] VITALS: Ht 172.7 cm; Wt 69.9 kg
[~2018-03-10] MED LIST changes: +ACET500T33 PO; +ALBU20VI2 IV; +ASPI-630 PO; +ATORVASTATIN CA80 MG PO; +CHOL4POW2 PO; +CLON0.2T PO; +DIPH50CA PO; +DIPHENHYDRAMINE IV; +FAMO-63 PO; +FERR325T14 PO; -HYDR-2758 PO; +HYDR-2761 PO; +HYDR-2867 PO; +HYDROmorphone 2 MG/ML VIAL IV PRN; +INSU100V SQ; +IV NORMAL SALINE 1000ML BAG 1,000 ML IV ONE; +IV RINGERS,LACTATED 1000ML 1,000 ML IV SCH; +LACT1TAB24 PO; +LIDO700A39 TP; +LIDOCAINE 1% PF 2 ML VIAL. ID PRN; +LOPE2CAP PO; +MORPHINE SULFATE 2 MG/ML VIAL. IV PRN; +NIAC250T7 PO; -OXYC-328 PO; +OXYC1TAB22 PO; +OXYC5TAB4 PO; +POLY17PO29 PO; +PROC5TAB14 PO; +PROCHLORPERAZINE 10 MG/2 ML VIAL. IV PRN; +PROCHLORPERAZINE IM; +VANCOMYCIN 1GM IVPB FOR OMNI 250 ML IV PRN; +VITS56.7 TP
[2018-03-10 11:58] VITALS: BP 158/67
== END | disposition home or self-care (01) ==
LOC: SURG 11:31
PROVIDERS: ATTEND Surgery
DX: Z01.818 Encounter for other preprocedural examination (principal); N19 Unspecified kidney failure; Z79.899 Other long term (current) drug therapy
CPT/HCPCS: 82962; 99211; J3370

== ENCOUNTER → 2018-03-29 | Outpatient (CLI) | payer MEDICARE ==
[2018-03-25 07:00] VITALS: BP 129/47
[~2018-03-29] MED LIST changes: +CARV12.511 PO; -CARV12.52 PO; +CARV3.1210 PO; -CARV3.122 PO; +CEFP200T PO; +DOXY100T10 PO; -HYDROmorphone 2 MG/ML VIAL IV PRN; -IV NORMAL SALINE 1000ML BAG 1,000 ML IV ONE; -IV RINGERS,LACTATED 1000ML 1,000 ML IV SCH; -LIDOCAINE 1% PF 2 ML VIAL. ID PRN; -MORPHINE SULFATE 2 MG/ML VIAL. IV PRN; -PROCHLORPERAZINE 10 MG/2 ML VIAL. IV PRN; -VANCOMYCIN 1GM IVPB FOR OMNI 250 ML IV PRN
== END | disposition home or self-care (01) ==
LOC: PMGWOUND 08:50
PROVIDERS: ATTEND Emergency Medicine Undersea and Hyperbaric Medicine
DX: T87.89 Other complications of amputation stump (principal); T81.89XA Other complications of procedures, not elsewhere classified, initial encounter; E11.621 Type 2 diabetes mellitus with foot ulcer; L97.512 Non-pressure chronic ulcer of other part of right foot with fat layer exposed; L97.411 Non-pressure chronic ulcer of right heel and midfoot limited to breakdown of skin; L89.619 Pressure ulcer of right heel, unspecified stage; L89.310 Pressure ulcer of right buttock, unstageable; L89.320 Pressure ulcer of left buttock, unstageable; L89.152 Pressure ulcer of sacral region, stage 2; E11.622 Type 2 diabetes mellitus with other skin ulcer; L98.411 Non-pressure chronic ulcer of buttock limited to breakdown of skin; L98.491 Non-pressure chronic ulcer of skin of other sites limited to breakdown of skin; S80.811D Abrasion, right lower leg, subsequent encounter; S80.821A Blister (nonthermal), right lower leg, initial encounter; E11.22 Type 2 diabetes mellitus with diabetic chronic kidney disease; I13.2 Hypertensive heart and chronic kidney disease with heart failure and with stage 5 chronic kidney disease, or end stage renal disease; N18.6 End stage renal disease; I50.33 Acute on chronic diastolic (congestive) heart failure; E11.52 Type 2 diabetes mellitus with diabetic peripheral angiopathy with gangrene; E78.49 Other hyperlipidemia; E11.43 Type 2 diabetes mellitus with diabetic autonomic (poly)neuropathy; K31.84 Gastroparesis; L84 Corns and callosities; F32.9 Major depressive disorder, single episode, unspecified; F41.9 Anxiety disorder, unspecified; K21.9 Gastro-esophageal reflux disease without esophagitis; I48.0 Paroxysmal atrial fibrillation; E11.69 Type 2 diabetes mellitus with other specified complication; M86.8X7 Other osteomyelitis, ankle and foot; M19.90 Unspecified osteoarthritis, unspecified site; J43.9 Emphysema, unspecified; I25.2 Old myocardial infarction; G89.29 Other chronic pain; I25.10 Atherosclerotic heart disease of native coronary artery without angina pectoris; E21.3 Hyperparathyroidism, unspecified; E66.09 Other obesity due to excess calories; F17.210 Nicotine dependence, cigarettes, uncomplicated; Z79.4 Long term (current) use of insulin; Z68.25 Body mass index [BMI] 25.0-25.9, adult; Z99.2 Dependence on renal dialysis; Z90.710 Acquired absence of both cervix and uterus; Z79.01 Long term (current) use of anticoagulants; Z79.84 Long term (current) use of oral hypoglycemic drugs; Z79.82 Long term (current) use of aspirin; Z79.899 Other long term (current) drug therapy; Z88.6 Allergy status to analgesic agent; Z88.1 Allergy status to other antibiotic agents; Z88.0 Allergy status to penicillin; Z88.2 Allergy status to sulfonamides; Z88.8 Allergy status to other drugs, medicaments and biological substances; Z86.718 Personal history of other venous thrombosis and embolism; Z95.1 Presence of aortocoronary bypass graft; Y83.5 Amputation of limb(s) as the cause of abnormal reaction of the patient, or of later complication, without mention of misadventure at the time of the procedure; Y92.89 Other specified places as the place of occurrence of the external cause; X58.XXXA Exposure to other specified factors, initial encounter; Y93.89 Activity, other specified; Y99.8 Other external cause status
CPT/HCPCS: 97606

== ENCOUNTER 2018-06-16 13:43 | Inpatient (IN) | payer MEDICARE ==
[2018-06-16] VITALS (9 sets, daily range): BP systolic 81–131; BP diastolic 40–72
[~2018-06-16] VITALS: Ht 172.7 cm; Wt 64.9 kg
[~2018-06-16 13:43] MED LIST changes: +ALBU2.5V8 IH; -PROVENTIL HFA6.7 GM IH
[2018-06-16 14:12] LABS: BASO # 0.1 x10^3/uL (0.0-0.2); BASO % 0 % (0-3); EOS % 0 % (0-3); HEMATOCRIT 24.6 % (36.0-47.0); HEMOGLOBIN 7.9 g/dL (12.0-15.5); LYMPH # 0.2 x10^3/uL (1.0-4.8); LYMPH % 1 % (24-48); MEAN CORPUSCULAR HEMOGLOBIN 32 pg (25-35); MEAN CORPUSCULAR HGB CONC 32 g/dL (31-37); MEAN CORPUSCULAR VOLUME 101 fL (79-100); MONO # 0.6 x10^3/uL (0.0-1.1); MONO % 2 % (0-9); NEUT # 25.5 x10^3uL (1.8-7.7); NEUT % 97 % (31-73); PLATELET COUNT 316 x10^3/uL (140-400); RED BLOOD COUNT 2.44 x10^6/uL (3.50-5.40); RED CELL DISTRIBUTION WIDTH 17.1 % (11.5-14.5); WHITE BLOOD COUNT 26.4 x10^3/uL (4.0-11.0)
[2018-06-16] MEDS ORDERED: IPRATRPIUM/ALBUTEROL 0.5/2.5MG 3 ML NEBU. NEB ONE (14:15)
--- NOTE | 2018-06-16 14:26 | RAD ---
Portable chest, 06/16/2018: HISTORY: Dyspnea Comparison is made to a study from 02/02/2018. There has been a previous median sternotomy. Vascular stents are projected over the right subclavian and innominate regions. Coronary artery stents and calcifications are present. There is prominence of left ventricle. There is calcific plaquing of the aorta. The pulmonary vascularity is normal. There is unchanged blunting of left lateral costophrenic angle, likely due to scarring. No acute infiltrate is seen. IMPRESSION: 1. Chronic findings as described above. 2. No acute cardiopulmonary abnormality is detected. Electronically signed by: Ronald Levy MD (06/16/2018 2:23 PM) [facility]
[2018-06-16 14:27] LABS: PROTHROMBIN TIME PATIENT 15.4 SEC (11.7-14.0)
[2018-06-16 14:57] LABS: BASE EXCESS ABG 2 mmol/L (-3-3); HCO3 ABG 25 mmol/L (21-28); PCO2 ABG 36 mmHg (35-46); PO2 ABG 87 mmHg (75-108); SAT O2 ABG 96 % (92-99)
[2018-06-16 14:59] LABS: % BANDS 21 % (0-9); % LYMPHS 3 % (24-48); % METAS 1 % (0-0); % MONOS 5 % (0-10); % SEGS 70 % (35-66); ANISOCYTOSIS SLIGHT; PLT ESTIMATE ADEQUATE (ADEQUATE); SMUDGE CELLS PRESENT; TOXIC VACUOLATION SLIGHT
[2018-06-16 14:59] LABS: FIO2 ABG 28
[2018-06-16 15:04] LABS: CREATININE 5.3 mg/dL (0.6-1.0); GFR 8.5; POTASSIUM 4.7 mmol/L (3.5-5.1)
[2018-06-16 15:09] LABS: ALBUMIN 2.6 g/dL (3.4-5.0); ALBUMIN/GLOBULIN RATIO 0.6 (1.0-1.7); MAGNESIUM 1.9 mg/dL (1.8-2.4); TOTAL BILIRUBIN 0.9 mg/dL (0.2-1.0); TOTAL PROTEIN 6.8 g/dL (6.4-8.2)
--- NOTE | 2018-06-16 15:56 | PHYS DOC ---
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 EMS reports that when they had arrived there patient's oxygen saturation was 80%. EMS reports that patient had been placed on 3 L of oxygen via nonrebreather mask. EMS states that they changed patient over nasal cannula and on 6 L patient's oxygen saturation came up to 97%. Upon arrival, patient is oriented 3. Patient does admit to feeling short of breath. Review of Systems Review of Systems Constitutional: Denies fever or chills [] Respiratory: Complains of cough and shortness of breath [] Cardiovascular: No additional information not addressed in HPI [] GI: Denies abdominal pain, nausea, vomiting, bloody stools or diarrhea [] Musculoskeletal: Complains of back pain [] Neurologic: Mental status change reported per nursing facility[] All other systems were reviewed and found to be within normal limits, except as documented in this note. Current Medications Current Medications Current Medications Medications (Trade) Dose Ordered Sig/Martin Start Time Stop Time Status Last Admin Dose Admin Albuterol/ Ipratropium (Duoneb) 3 ml 1X ONCE 06/16/18 14:15 06/16/18 14:16 DC 06/16/18 14:38 3 ML Levofloxacin/ Dextrose 100 ml @ 100 mls/hr 1X ONCE 06/16/18 16:45 06/16/18 17:44 Methylprednisolone Sodium Succinate (SOLU-Medrol 125MG VIAL) 125 mg 1X ONCE 06/16/18 16:00 06/16/18 16:01 DC Vancomycin HCl 1.75 gm/Sodium Chloride 500 ml @ 250 mls/hr 1X ONCE 06/16/18 17:45 06/16/18 19:44 Allergies Allergies Allergies Coded Allergies Type Severity Reaction Last Updated Verified Sulfa (Sulfonamide Antibiotics) Allergy Severe Anaphylaxis 03/10/18 Yes meropenem Allergy Intermediate Rash 03/10/18 Yes piperacillin Allergy Intermediate Rash 03/10/18 Yes strawberry Allergy Intermediate 03/10/18 Yes tazobactam Allergy Intermediate 03/10/18 Yes cefazolin Adverse Reaction Intermediate Itching 03/10/18 Yes fentanyl Adverse Reaction Intermediate Nausea and Vomiting 02/05/18 Yes Physical Exam Physical Exam Constitutional: Well developed, well nourished, no acute distress, non-toxic appearance. [] HENT: Normocephalic, atraumatic, bilateral external ears normal, oropharynx moist, no oral exudates, nose normal. [] Eyes: PERRLA, EOMI, conjunctiva normal, no discharge. [] Neck: Normal range of motion, no tenderness, supple, no stridor. [] Cardiovascular: Regular rate and rhythm [] Lungs & Thorax: Fine rhonchi are noted in the lung bases with a few scant inspiratory and expiratory wheezes to auscultation [] Abdomen: Bowel sounds normal, soft, no tenderness. [] Skin: Warm, dry. [] Extremities: There is left lower extremity BKA. Right lower extremity is wrapped in dressing up to knee. [] Neurologic: Alert and oriented X 3, no focal deficits noted. [] Current Patient Data Vital Signs Vital Signs Date Time Temp Pulse Resp B/P (MAP) Pulse Ox O2 Delivery O2 Flow Rate FiO2 06/16/18 14:39 100 Nasal Cannula 2.0 06/16/18 13:50 98.8 96 12 107/49 (68) 98.8 Lab Values Laboratory Tests Test 06/16/18 14:00 06/16/18 14:40 White Blood Count 26.4 x10^3/uL (4.0-11.0) H Red Blood Count 2.44 x10^6/uL (3.50-5.40) L Hemoglobin 7.9 g/dL (12.0-15.5) L Hematocrit 24.6 % (36.0-47.0) L Mean Corpuscular Volume 101 fL (79-100) H Mean Corpuscular Hemoglobin 32 pg (25-35) Mean Corpuscular Hemoglobin Concent 32 g/dL (31-37) Red Cell Distribution Width 17.1 % (11.5-14.5) H Platelet Count 316 x10^3/uL (140-400) Neutrophils (%) (Auto) 97 % (31-73) H Lymphocytes (%) (Auto) 1 % (24-48) L Monocytes (%) (Auto) 2 % (0-9) Eosinophils (%) (Auto) 0 % (0-3) Basophils (%) (Auto) 0 % (0-3) Neutrophils # (Auto) 25.5 x10^3uL (1.8-7.7) H Lymphocytes # (Auto) 0.2 x10^3/uL (1.0-4.8) L Monocytes # (Auto) 0.6 x10^3/uL (0.0-1.1) Eosinophils # (Auto) 0.0 x10^3/uL (0.0-0.7) Basophils # (Auto) 0.1 x10^3/uL (0.0-0.2) Segmented Neutrophils % 70 % (35-66) H Band Neutrophils % 21 % (0-9) H Lymphocytes % 3 % (24-48) L Monocytes % 5 % (0-10) Metamyelocytes % 1 % (0-0) H Smudge Cells Present Toxic Vacuolation Slight Platelet Estimate Adequate (ADEQUATE) Anisocytosis Slight Prothrombin Time 15.4 SEC (11.7-14.0) H Prothrombin Time INR 1.3 (0.8-1.1) H PTT 34 SEC (24-38) O2 Saturation 96 % (92-99) Arterial Blood pH 7.46 (7.35-7.45) H Arterial Blood pCO2 at Patient Temp 36 mmHg (35-46) Arterial Blood pO2 at Patient Temp 87 mmHg (75-108) Arterial Blood HCO3 25 mmol/L (21-28) Arterial Blood Base Excess 2 mmol/L (-3-3) FiO2 28 Sodium Level 138 mmol/L (136-145) Potassium Level 4.7 mmol/L (3.5-5.1) Chloride Level 97 mmol/L (98-107) L Carbon Dioxide Level 27 mmol/L (21-32) Anion Gap 14 (6-14) Blood Urea Nitrogen 58 mg/dL (7-20) H Creatinine 5.3 mg/dL (0.6-1.0) H Estimated GFR (Cockcroft-Gault) 8.5 BUN/Creatinine Ratio 11 (6-20) Glucose Level 132 mg/dL (70-99) H Calcium Level 9.0 mg/dL (8.5-10.1) Magnesium Level 1.9 mg/dL (1.8-2.4) Total Bilirubin 0.9 mg/dL (0.2-1.0) Aspartate Amino Transferase (AST) 12 U/L (15-37) L Alanine Aminotransferase (ALT) 9 U/L (14-59) L Alkaline Phosphatase 114 U/L (46-116) Ammonia 24 mcmol/L (11-34) Troponin I Quantitative 0.158 ng/mL (0.000-0.055) SB-Tav-S-Type Natriuretic Peptide > 06488 pg/mL (0-124) H Total Protein 6.8 g/dL (6.4-8.2) Albumin 2.6 g/dL (3.4-5.0) L Albumin/Globulin Ratio 0.6 (1.0-1.7) L Laboratory Tests 06/16/18 14:00 Laboratory Tests 06/16/18 14:40 EKG EKG [] Interpretation Time: EKG demonstrates normal sinus rhythm with rate of 94. Radiology/Procedures Radiology/Procedures [] Impressions: Portable chest, 06/16/2018: HISTORY: Dyspnea Comparison is made to a study from 02/02/2018. There has been a previous median sternotomy. Vascular stents are projected over the right subclavian and innominate regions. Coronary artery stents and calcifications are present. There is prominence of left ventricle. There is calcific plaquing of the aorta. The pulmonary vascularity is normal. There is unchanged blunting of left lateral costophrenic angle, likely due to scarring. No acute infiltrate is seen. IMPRESSION: 1. Chronic findings as described above. 2. No acute cardiopulmonary abnormality is detected. Electronically signed by: Ronald Levy MD (06/16/2018 2:23 PM) [facility] Course & Med Decision Making Course & Med Decision Making Pertinent Labs and Imaging studies reviewed. (See chart for details) A sugar moved to room upon arrival was evaluated by your medical staff after which an IV was established and blood work drawn. Patient given respiratory treatment or shortness of breath and placed on oxygen. Patient's workup returned with findings of significantly elevated white blood cell count with left shift. Patient's right leg was further evaluated with dressing removed. Extremity is a little bit erythematous but quite hot to touch. I do suspect that patient has cellulitis that may be cause of patient's sepsis. Patient is he on hemodialysis and given that patient is not hypotensive we have withheld IV fluid bolus. Dragon Disclaimer Dragon Disclaimer This electronic medical record was generated, in whole or in part, using a voice recognition dictation system. Departure Departure Impression: Primary Impression: Sepsis Additional Impressions: Cellulitis of right leg End-stage renal disease on hemodialysis Disposition: ADMITTED INPATIENT Admitting Physician: Other (Dr. Yadav) Condition: GUARDED Referrals: MAGDA ARROYO MD (PCP) Problem Qualifiers Primary Impression: Sepsis Sepsis type: sepsis due to unspecified organism Qualified Codes: A41.9 - Sepsis, unspecified organism JSOTIN BALES Jr. DO Jun 16, 2018 15:56
[2018-06-16] MEDS ORDERED: methylPREDNISolone SOD SUCC PF 125 MG/2 ML VIAL. IV ONE (16:00)
--- NOTE | 2018-06-16 16:08 | EKG ---
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
--- NOTE | 2018-06-16 16:41 | PDOC1 ---
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 At SNF was noted with shortness of breath and decreased mentation. EMS reports that when they had arrived there patient's oxygen saturation was 80%. EMS reports that patient had been placed on 3 L of oxygen via nonrebreather mask. EMS states that they changed patient over nasal cannula and on 6 L patient's oxygen saturation came up to 97%. Upon arrival, patient is oriented 3. Patient does admit to feeling short of breath. She also has a RUE large hematoma, she notes she was not aware of this and a gluteal pressure ulcer as well that is apparent when she rolls over, looks unstageable and with removal of her dressing with ED physician there is a purplish discharge that is sickly sweet smelling, indurated, very hot to the touch. Past Medical History Cardiovascular: AFIB, CAD, CHF, HTN, [place], Hyperlipidemia, Other Pulmonary: Asthma, Bronchitis, COPD, Pneumonia, Other CENTRAL NERVOUS SYSTEM: Periperal neuropathy GI: Irritable bowel disease, Peptic Ulcer disease, Other Heme/Onc: Anemia NOS Hepatobiliary: No pertinent hx Psych: Anxiety, Depression Musculoskeletal: Osteoarthritis Rheumatologic: Fibromyalgia Infectious disease: Other Renal/: Chronic renal failure Endocrine: Diabetes Past Surgical History Past Surgical History: CABG, Cataract Removal, Hysterectomy, Other Family History Family History: Diabetes, Hypertension Social History Smoke: 1 pack per day ALCOHOL: none Drugs: None Current Medications Current Medications Current Medications Albuterol/ Ipratropium (Duoneb) 3 ml 1X ONCE NEB Last administered on at 14:38; Start 06/16/18 at 14:15; Stop 06/16/18 at 14:16; Status DC Methylprednisolone Sodium Succinate (SOLU-Medrol 125MG VIAL) 125 mg 1X ONCE IV ; Start 06/16/18 at 16:00; Stop 06/16/18 at 16:01; Status DC Active Scripts Active Doxycycline Monohydrate 100 Mg Tablet 100 Mg PO BID 7 Days Cefpodoxime Proxetil 200 Mg Tablet 1 Tab PO BID 7 Days Brilinta (Ticagrelor) 90 Mg Tablet 90 Mg PO BID 30 Days Morphine Sulfate Er (Morphine Sulfate) 15 Mg Tablet.er 15 Mg PO BID Reported Aspirin 81 Mg Tab.chew 1 Tab PO DAILY Atorvastatin Calcium 80 Mg Tablet 1 Tab PO QHS Calcitriol 0.25 Mcg Capsule 1 Cap PO DAILY Pepcid (Famotidine) 20 Mg Tablet 20 Mg PO HS Probiotic Acidophilus (Lactobacillus Acidophilus) 1 Each Tablet 2 Tab PO DAILY Niacin 250 Mg Tablet 250 Mg PO BID Miralax (Polyethylene Glycol 3350) 17 Gm Powd.pack 1 Packet PO DAILY Hydralazine Hcl 10 Mg Tablet 1 Tab PO PRN TID PRN Oxycodone Hcl Immed.release (Oxycodone Hcl) 5 Mg Tablet 2 Tab PO PRN Q4HRS PRN Plasbumin-25 (Albumin Human) 20 Ml Vial 20 Ml IV PRN PRN Tylenol Extra Strength (Acetaminophen) 500 Mg Tablet 1,000 Mg PO PRN PRN Clonidine Hcl 0.2 Mg Tablet 1 Tab PO PRN PRN Ferrous Sulfate 325 Mg Tablet 1 Tab PO DAILY Vitamin A & D Ointment (Vits A & D/White Pet/Lanolin) 56.7 Gm Oint...g. 56.7 Gm TP PRN PRN Humalog (Insulin Lispro) 100 Unit/1 Ml Vial 0 SQ QIDACHS Loperamide (Loperamide Hcl) 2 Mg Capsule 2 Mg PO PRN Q6HRS PRN Diphenhydramine Hcl 50 Mg Capsule 1 Cap PO PRN Q8HRS PRN [Diphenhydramine] 50 Mg IV PRN Q8HRS PRN Cholestyramine Packet (Cholestyramine (With Sugar)) 4 Gm Powd.pack 4 Gm PO BID Prochlorperazine Maleate 10 Mg Tablet 1 Tab PO PRN Q6HRS PRN Lidocaine 1 Each Adh..patch 1 Each TP PRN DAILY PRN Tegretol (Carbamazepine) 200 Mg Tablet 1 Tab PO BID Tramadol Hcl 50 Mg Tablet 50 Mg PO Q4HRS PRN Carvedilol (Carvedilol) 3.125 Mg Tablet 12.5 Mg PO BID Erythromycin (Erythromycin Base) 250 Mg Capsule.dr 250 Mg PO BID Cardizem Cd (Diltiazem Hcl) 180 Mg Cap.er.24h 120 Mg PO DAILY Amiodarone Hcl 200 Mg Tablet 1 Tab PO DAILY Nephro-Shabbir Tablet (Folic Acid/Vitamin B Comp W-C) 0.8 Mg Tablet 1 Tab PO DAILY Lipitor (Atorvastatin Calcium) 80 Mg Tablet 80 Mg PO HS Furosemide 80 Mg Tablet 80 Mg PO BID Docusate Sodium 100 Mg Capsule 1 Cap PO PRN PRN Nitrostat (Nitroglycerin) 0.4 Mg Tab.subl 0.4 Mg SL PRN Q5MIN PRN Take as needed for chest pain Allergies Allergies: Coded Allergies: Sulfa (Sulfonamide Antibiotics) (Verified Allergy, Severe, Anaphylaxis, ) meropenem (Verified Allergy, Intermediate, Rash, 03/10/18) Tolerates ancef piperacillin (Verified Allergy, Intermediate, Rash, 03/10/18) Tolerates ancef strawberry (Verified Allergy, Intermediate, 03/10/18) tazobactam (Verified Allergy, Intermediate, 03/10/18) cefazolin (Verified Adverse Reaction, Intermediate, Itching, 03/10/18) Causes Vomiting fentanyl (Verified Adverse Reaction, Intermediate, Nausea and Vomiting, ) Vomiting ROS General: YES: Fatigue, Malaise, Appetite; No: Chills, Night Sweats, Other PSYCHOLOGICAL ROS: YES: Anxiety, Depression; No: Behavioral Disorder, Concentration difficultie, Decreased libido, Disorientation, Hallucinations, Hostility, Irritablity, Memory difficulties, Mood Swings, Obsessive thoughts, Physical abuse, Sexual abuse, Sleep disturbances, Suicidal ideation, Other Eyes: Yes Blurry vision; No Decreased vision, No Double vision, No Dry eyes, No Excessive tearing, No Eye Pain, No Itchy Eyes, No Loss of vision, No Photophobia, No Scotomata, No Uses contacts, No Uses glasses, No Other HEENT: No: Heacaches, Visual Changes, Hearing change, Nasal congestion, Nasal discharge, Oral lesions, Sinus pain, Sore Throat, Epistaxis, Sneezing, Snoring, Tinnitus, Vertigo, Vocal changes, Other ALLERGY AND IMMUNOLOGY: No: Hives, Insect Bite Sensitivity, Itchy/Watery Eyes, Nasal Congestion, Post Nasal Drip, Seasonal Allergies, Other Hematological and Lymphatic: YES: Brusing; No: Bleeding Problems, Blood Clots, Blood Transfusions, Night Sweats, Pallor , Swollen Lymph Nodes, Other ENDOCRINE: No: Breast Changes, Galactorrhea, Hair Pattern Changes, Hot Flashes , Malaise/lethargy, Mood Swings, Palpitations, Polydipsia/polyuria, Skin Changes , Temperature Intolerance, Unexpected Weight Changes, Other Breast: No New/Changing Breast Lumps, No Nipple changes, No Nipple discharge, No Other Respiratory: YES: Cough, Shortness of breath, Tachypnea, Wheezing; No: Hemoptysis, Orthopnea, Pleuritic Pain, SOB with excertion, Sputum Changes , Stridor, Other Cardiovascular: No Chest Pain, No Palpitations, No Orthopnea, No Paroxysmal Noc. Dyspnea, No Edema, No Lt Headedness, No Other Gastrointestinal: Yes Nausea; No Vomiting, No Abdominal Pain, No Diarrhea, No Constipation, No Melena, No Hematochezia, No Other Genitourinary: No Dysuria, No Frequency, No Incontinence, No Hematuria, No Retention, No Discharge, No Urgency, No Pain, No Flank Pain, No Other, No , No , No , No , No , No , No Musculoskeletal: No Gait Disturbance, No Joint Pain, No Joint Stiffness, No Joint Swelling, No Muscle Pain, No Muscular Weakness, No Pain In:, No Swelling In:, No Other Neurological: Yes Behavorial Changes; No Bowel/Bladder ControlChng, No Confusion, No Dizziness, No Gait Disturbance , No Headaches, No Impaired Coord/balance, No Memory Loss, No Numbness/Tingling , No Seizures, No Speech Problems, No Tremors, No Visual Changes, No Weakness, No Other Skin: Yes Dry Skin; No Eczema, No Hair Changes, No Lumps, No Mole Changes, No Mottling, No Nail Changes, No Pruritus, No Rash, No Skin Lesion Changes, No Other, No Acne Physical Exam General: Alert, Cooperative, mild distress HEENT: Atraumatic, PERRLA, EOMI, Mucous membr. moist/pink Lungs: Other (Wheezing bilaterally) Heart: irregularly irregular Abdomen: Normal bowel sounds, Soft, No tenderness, No hepatosplenomegaly, No masses Rectal Exam: not examined Extremities: Other (LLE BKA stump. RLE indurated, swollen, hot reddish with foul smelling discharge RUE with large hematoma) Skin: Other (LLE BKA stump. RLE indurated, swollen, hot reddish with foul smelling discharge RUE with large hematoma) Neuro: Normal speech, Strength at 5/5 X4 ext, Normal tone, Sensation intact, Cranial nerves 3-12 NL, Reflexes 2+ Psych/Mental Status: Other (Drowsy) Vitals Vitals Vital Signs Date Time Temp Pulse Resp B/P (MAP) Pulse Ox O2 Delivery O2 Flow Rate FiO2 06/16/18 14:39 100 Nasal Cannula 2.0 06/16/18 13:50 98.8 96 12 107/49 (68) 98.8 Labs Labs Laboratory Tests Test 06/16/18 14:00 06/16/18 14:40 White Blood Count 26.4 x10^3/uL (4.0-11.0) Red Blood Count 2.44 x10^6/uL (3.50-5.40) Hemoglobin 7.9 g/dL (12.0-15.5) Hematocrit 24.6 % (36.0-47.0) Mean Corpuscular Volume 101 fL (79-100) Mean Corpuscular Hemoglobin 32 pg (25-35) Mean Corpuscular Hemoglobin Concent 32 g/dL (31-37) Red Cell Distribution Width 17.1 % (11.5-14.5) Platelet Count 316 x10^3/uL (140-400) Neutrophils (%) (Auto) 97 % (31-73) Lymphocytes (%) (Auto) 1 % (24-48) Monocytes (%) (Auto) 2 % (0-9) Eosinophils (%) (Auto) 0 % (0-3) Basophils (%) (Auto) 0 % (0-3) Neutrophils # (Auto) 25.5 x10^3uL (1.8-7.7) Lymphocytes # (Auto) 0.2 x10^3/uL (1.0-4.8) Monocytes # (Auto) 0.6 x10^3/uL (0.0-1.1) Eosinophils # (Auto) 0.0 x10^3/uL (0.0-0.7) Basophils # (Auto) 0.1 x10^3/uL (0.0-0.2) Segmented Neutrophils % 70 % (35-66) Band Neutrophils % 21 % (0-9) Lymphocytes % 3 % (24-48) Monocytes % 5 % (0-10) Metamyelocytes % 1 % (0-0) Smudge Cells Present Toxic Vacuolation Slight Platelet Estimate Adequate (ADEQUATE) Anisocytosis Slight Prothrombin Time 15.4 SEC (11.7-14.0) Prothromb Time International Ratio 1.3 (0.8-1.1) Activated Partial Thromboplast Time 34 SEC (24-38) O2 Saturation 96 % (92-99) Arterial Blood pH 7.46 (7.35-7.45) Arterial Blood pCO2 at Patient Temp 36 mmHg (35-46) Arterial Blood pO2 at Patient Temp 87 mmHg (75-108) Arterial Blood HCO3 25 mmol/L (21-28) Arterial Blood Base Excess 2 mmol/L (-3-3) FiO2 28 Sodium Level 138 mmol/L (136-145) Potassium Level 4.7 mmol/L (3.5-5.1) Chloride Level 97 mmol/L (98-107) Carbon Dioxide Level 27 mmol/L (21-32) Anion Gap 14 (6-14) Blood Urea Nitrogen 58 mg/dL (7-20) Creatinine 5.3 mg/dL (0.6-1.0) Estimated GFR (Cockcroft-Gault) 8.5 BUN/Creatinine Ratio 11 (6-20) Glucose Level 132 mg/dL (70-99) Calcium Level 9.0 mg/dL (8.5-10.1) Magnesium Level 1.9 mg/dL (1.8-2.4) Total Bilirubin 0.9 mg/dL (0.2-1.0) Aspartate Amino Transf (AST/SGOT) 12 U/L (15-37) Alanine Aminotransferase (ALT/SGPT) 9 U/L (14-59) Alkaline Phosphatase 114 U/L (46-116) Ammonia 24 mcmol/L (11-34) Troponin I Quantitative 0.158 ng/mL (0.000-0.055) OK-Fxr-K-Type Natriuretic Peptide > 43741 pg/mL (0-124) Total Protein 6.8 g/dL (6.4-8.2) Albumin 2.6 g/dL (3.4-5.0) Albumin/Globulin Ratio 0.6 (1.0-1.7) Laboratory Tests Test 06/16/18 14:00 06/16/18 14:40 White Blood Count 26.4 x10^3/uL (4.0-11.0) Red Blood Count 2.44 x10^6/uL (3.50-5.40) Hemoglobin 7.9 g/dL (12.0-15.5) Hematocrit 24.6 % (36.0-47.0) Mean Corpuscular Volume 101 fL (79-100) Mean Corpuscular Hemoglobin 32 pg (25-35) Mean Corpuscular Hemoglobin Concent 32 g/dL (31-37) Red Cell Distribution Width 17.1 % (11.5-14.5) Platelet Count 316 x10^3/uL (140-400) Neutrophils (%) (Auto) 97 % (31-73) Lymphocytes (%) (Auto) 1 % (24-48) Monocytes (%) (Auto) 2 % (0-9) Eosinophils (%) (Auto) 0 % (0-3) Basophils (%) (Auto) 0 % (0-3) Neutrophils # (Auto) 25.5 x10^3uL (1.8-7.7) Lymphocytes # (Auto) 0.2 x10^3/uL (1.0-4.8) Monocytes # (Auto) 0.6 x10^3/uL (0.0-1.1) Eosinophils # (Auto) 0.0 x10^3/uL (0.0-0.7) Basophils # (Auto) 0.1 x10^3/uL (0.0-0.2) Segmented Neutrophils % 70 % (35-66) Band Neutrophils % 21 % (0-9) Lymphocytes % 3 % (24-48) Monocytes % 5 % (0-10) Metamyelocytes % 1 % (0-0) Smudge Cells Present Toxic Vacuolation Slight Platelet Estimate Adequate (ADEQUATE) Anisocytosis Slight Prothrombin Time 15.4 SEC (11.7-14.0) Prothromb Time International Ratio 1.3 (0.8-1.1) Activated Partial Thromboplast Time 34 SEC (24-38) O2 Saturation 96 % (92-99) Arterial Blood pH 7.46 (7.35-7.45) Arterial Blood pCO2 at Patient Temp 36 mmHg (35-46) Arterial Blood pO2 at Patient Temp 87 mmHg (75-108) Arterial Blood HCO3 25 mmol/L (21-28) Arterial Blood Base Excess 2 mmol/L (-3-3) FiO2 28 Sodium Level 138 mmol/L (136-145) Potassium Level 4.7 mmol/L (3.5-5.1) Chloride Level 97 mmol/L (98-107) Carbon Dioxide Level 27 mmol/L (21-32) Anion Gap 14 (6-14) Blood Urea Nitrogen 58 mg/dL (7-20) Creatinine 5.3 mg/dL (0.6-1.0) Estimated GFR (Cockcroft-Gault) 8.5 BUN/Creatinine Ratio 11 (6-20) Glucose Level 132 mg/dL (70-99) Calcium Level 9.0 mg/dL (8.5-10.1) Magnesium Level 1.9 mg/dL (1.8-2.4) Total Bilirubin 0.9 mg/dL (0.2-1.0) Aspartate Amino Transf (AST/SGOT) 12 U/L (15-37) Alanine Aminotransferase (ALT/SGPT) 9 U/L (14-59) Alkaline Phosphatase 114 U/L (46-116) Ammonia 24 mcmol/L (11-34) Troponin I Quantitative 0.158 ng/mL (0.000-0.055) PN-Gob-K-Type Natriuretic Peptide > 31272 pg/mL (0-124) Total Protein 6.8 g/dL (6.4-8.2) Albumin 2.6 g/dL (3.4-5.0) Albumin/Globulin Ratio 0.6 (1.0-1.7) VTE Prophylaxis Ordered VTE Prophylaxis Devices: Yes VTE Pharmacological Prophylaxi: Yes Assessment/Plan Assessment/Plan A/P: Shortness of breath - with Hypoxia - likely CHF exacerbation plus COPD exacerbation RUE hematoma - could be AV fistula infiltration vs pseudoaneurysm, will consult vascular surgery, Ultrasound as well Right lower extremity swelling with skin breakdown - goes back to December 15, 2017, but this is much worse, will treat as cellulitis. Despite her allergies listed she did tolerate cephalsporins previously, also based on smell will treat empirically as pseudomonas [ANTIBIOTIC ALLERGY TO MEROPENEM, PIPERACILLIN AND TAZOBACTAM CAUSING PEELING AND BLEEDING OF THE SKIN. ALSO, SULFA. TOLERATES KEFLEX AND HAS BEEN ON CEFAZOLIN, THOUGH HAS CAUSED ITCHING] Will give levaquin, vanco, and Cefepime based on her only positive culture which was for klebsiella last November. Consult ID Severe sepsis - empiric antibiotics for her RLE cellulitis as above Recent Right groin sx wound infection s/p i and d 02/01 and 02/05 - vascular surgery consulted Recent right leg PAD s/p R fem to pop bypass h/o L BKA - stable CAD w/ hx CABG, EF 50% - cont meds Diabetic retinopathy with VITREOUS HEMORRHAGE s/p sx, fu with [facility] Apr 09 - stable Vitreous hemorrhage, left > RT sec to DM - stable End-stage renal disease, on dialysis via AV fistula here at home per pt has been on PD - consult nephrology A- fib - amiodarone therapy Gastroparesis - on Erythromycin Left retinal optic disc drusen, bl blurry vision Acute on chronic decubitus ulcer - will have wound care to see. Will consult Dr. Solorio Hepatomegaly - will monitor HTN - cont meds FEN - renal diet PPX - heparin FULL CODE ICU for critically ill patient with severe sepsis 2/2 cellulitis and new hypoxia. JEREMIAS VERDUGO MD Jun 16, 2018 16:41
[2018-06-16] MEDS ORDERED: VANCOMYCIN 1GM IVPB FOR OMNI 250 ML IV ONE (16:45)
[2018-06-16] MEDS ORDERED: ONDANSETRON PF 4 MG/2 ML VIAL. IV PRN (17:15)
[2018-06-16] MEDS ORDERED: ACETAMINOPHEN 325 MG TABLET. PO PRN ×2 (17:15→19:30)
[2018-06-16] MEDS ORDERED: VANCOMYCIN 1.75 GM in IV NORMAL SALINE 500ML BAG 500 ML IV ONE (17:45)
[2018-06-16 18:01] LABS: INFLUENZA A PATIENT NEGATIVE (NEGATIVE); INFLUENZA B PATIENT NEGATIVE (NEGATIVE)
--- NOTE | 2018-06-16 18:45 | NUR ---
Rec'd from ER per cart. Pt awake and aswering questions. IV patent Lt upper arm. Vanc infusing. No family here per pt. Lt leg amp noted and Rt lower leg is wrapped with yazan per ER. Will unwrap soon and assess seperately There were wounds on both butt cheeks. Dsgs removed. Will assess seperately soon. Low grade fever.
[2018-06-16] MEDS ORDERED: DEXTROSE 50% 25 GM / 50ML DISP.SYRIN. IV PRN (19:30)
[2018-06-16] MEDS ORDERED: HYDROmorphone 2 MG/ML VIAL IVP PRN ×2 (19:30)
--- NOTE | 2018-06-16 19:56 | NUR ---
Patient complaining of pain--no pain meds on board. Dr. Leif lagos, page returned. Orders received to give Dilaudid 0.5 mg Q3H PRN for pain or Dilaudid 1 mg Q3H PRN for pain 02/03. Orders also received for Hydrocodone 5-325 Q6H PRN for pain and Tylenol 650 mg Q6H PRN for fever. Updated on patient condition and additional orders. Orders received to consult ID and vascular, start renal diet, and do fingersticks ACHS with low dose sliding scale insulin. Will continue to monitor.
[2018-06-16] MEDS ORDERED: MORP30TA3 PO (22:04)
[2018-06-16] MEDS ORDERED: GUAI600T79 PO (22:04)
[2018-06-16] MEDS ORDERED: ACET500T68 PO (22:04)
[2018-06-16] MEDS ORDERED: MELA3TAB2 PO (22:04)
[2018-06-16] MEDS ORDERED: INSU100I13 SQ (22:04)
[2018-06-16] MEDS ORDERED: INSU100V SQ ×2 (22:04)
[2018-06-16] MEDS ORDERED: SODI50SP NS (22:04)
[2018-06-16] MEDS ORDERED: SEVE800T9 PO (22:04)
[2018-06-16] MEDS ORDERED: IPRA3AMP29 NEB (22:04)
[2018-06-16] MEDS ORDERED: hydrALAZINE 10 MG TABLET PO PRN (23:30)
[2018-06-16] MEDS ORDERED: LIDOCAINE (700MG/PATCH) PATCH. TP PRN (23:30)
[2018-06-16] MEDS ORDERED: INSULIN GLARGINE 300 UNITS/3 ML INSULN.PEN. SQ PRN (23:30)
[2018-06-16] MEDS ORDERED: SODIUM CHLORIDE 0.65% NASAL SPRAY 45ML BOTTLE. NS PRN (23:30)
[2018-06-16] MEDS ORDERED: diphenhydrAMINE HCL 25 MG CAPSULE PO PRN (23:30)
[2018-06-16] MEDS ORDERED: INSULIN LISPRO 300 UNITS/3 ML INSULN.PEN. SQ PRN (23:30)
[2018-06-17] VITALS (28 sets, daily range): BP systolic 92–142; BP diastolic 37–100
[2018-06-17] MEDS ORDERED: CEFEPIME HCL IV Push 1 GM VIAL. IVP ONE
[2018-06-17 04:39] LABS: CALCIUM 9.2 mg/dL (8.5-10.1); GFR 7.4; POTASSIUM 5.1 mmol/L (3.5-5.1)
[2018-06-17 04:53] LABS: BASO % 0 % (0-3); EOS % 0 % (0-3); HEMATOCRIT 22.6 % (36.0-47.0); LYMPH # 0.7 x10^3/uL (1.0-4.8); LYMPH % 2 % (24-48); MEAN CORPUSCULAR HEMOGLOBIN 32 pg (25-35); MEAN CORPUSCULAR HGB CONC 31 g/dL (31-37); MEAN CORPUSCULAR VOLUME 102 fL (79-100); MONO % 3 % (0-9); NEUT # 35.8 x10^3uL (1.8-7.7); NEUT % 96 % (31-73); PLATELET COUNT 277 x10^3/uL (140-400); RED BLOOD COUNT 2.22 x10^6/uL (3.50-5.40); RED CELL DISTRIBUTION WIDTH 17.5 % (11.5-14.5); WHITE BLOOD COUNT 37.5 x10^3/uL (4.0-11.0)
[2018-06-17] MEDS ORDERED: ACETAMINOPHEN 325 MG TABLET. PO PRN (05:15)
[2018-06-17] MEDS ORDERED: diphenhydrAMINE HCL 25 MG CAPSULE PO PRN (05:15)
[2018-06-17] MEDS ORDERED: diphenhydrAMINE ORAL ELIXIR 12.5 MG/5 ML ML PO PRN (05:15)
--- NOTE | 2018-06-17 05:17 | NUR ---
Critical Hgb of 7 called by lab at 0455. Dr Leif lagos, page returned at [phone]. Updated on patient condition and labs. Orders received to get type and screen and hold 1 U PRBC to give for dialysis today. Will double check with nephrology later today to ensure it is ok to give blood.
--- NOTE | 2018-06-17 07:02 | PDOC ---
Infectious Disease Note Vital Sign Vital Signs Vital Signs Date Time Temp Pulse Resp B/P (MAP) Pulse Ox O2 Delivery O2 Flow Rate FiO2 06/17/18 06:00 78 18 127/55 (79) 98 Room Air 06/17/18 04:00 98.9 98.9 06/16/18 19:45 2.0 Labs Lab Laboratory Tests Test 06/16/18 14:00 06/16/18 14:40 06/16/18 17:36 06/16/18 19:15 White Blood Count 26.4 x10^3/uL (4.0-11.0) Red Blood Count 2.44 x10^6/uL (3.50-5.40) Hemoglobin 7.9 g/dL (12.0-15.5) Hematocrit 24.6 % (36.0-47.0) Mean Corpuscular Volume 101 fL (79-100) Mean Corpuscular Hemoglobin 32 pg (25-35) Mean Corpuscular Hemoglobin Concent 32 g/dL (31-37) Red Cell Distribution Width 17.1 % (11.5-14.5) Platelet Count 316 x10^3/uL (140-400) Neutrophils (%) (Auto) 97 % (31-73) Lymphocytes (%) (Auto) 1 % (24-48) Monocytes (%) (Auto) 2 % (0-9) Eosinophils (%) (Auto) 0 % (0-3) Basophils (%) (Auto) 0 % (0-3) Neutrophils # (Auto) 25.5 x10^3uL (1.8-7.7) Lymphocytes # (Auto) 0.2 x10^3/uL (1.0-4.8) Monocytes # (Auto) 0.6 x10^3/uL (0.0-1.1) Eosinophils # (Auto) 0.0 x10^3/uL (0.0-0.7) Basophils # (Auto) 0.1 x10^3/uL (0.0-0.2) Segmented Neutrophils % 70 % (35-66) Band Neutrophils % 21 % (0-9) Lymphocytes % 3 % (24-48) Monocytes % 5 % (0-10) Metamyelocytes % 1 % (0-0) Smudge Cells Present Toxic Vacuolation Slight Platelet Estimate Adequate (ADEQUATE) Anisocytosis Slight Prothrombin Time 15.4 SEC (11.7-14.0) Prothromb Time International Ratio 1.3 (0.8-1.1) Activated Partial Thromboplast Time 34 SEC (24-38) Lactic Acid Level 1.3 mmol/L (0.4-2.0) 1.7 mmol/L (0.4-2.0) O2 Saturation 96 % (92-99) Arterial Blood pH 7.46 (7.35-7.45) Arterial Blood pCO2 at Patient Temp 36 mmHg (35-46) Arterial Blood pO2 at Patient Temp 87 mmHg (75-108) Arterial Blood HCO3 25 mmol/L (21-28) Arterial Blood Base Excess 2 mmol/L (-3-3) FiO2 28 Sodium Level 138 mmol/L (136-145) Potassium Level 4.7 mmol/L (3.5-5.1) Chloride Level 97 mmol/L (98-107) Carbon Dioxide Level 27 mmol/L (21-32) Anion Gap 14 (6-14) Blood Urea Nitrogen 58 mg/dL (7-20) Creatinine 5.3 mg/dL (0.6-1.0) Estimated GFR (Cockcroft-Gault) 8.5 BUN/Creatinine Ratio 11 (6-20) Glucose Level 132 mg/dL (70-99) Calcium Level 9.0 mg/dL (8.5-10.1) Magnesium Level 1.9 mg/dL (1.8-2.4) Total Bilirubin 0.9 mg/dL (0.2-1.0) Aspartate Amino Transf (AST/SGOT) 12 U/L (15-37) Alanine Aminotransferase (ALT/SGPT) 9 U/L (14-59) Alkaline Phosphatase 114 U/L (46-116) Ammonia 24 mcmol/L (11-34) Troponin I Quantitative 0.158 ng/mL (0.000-0.055) TI-Zmz-K-Type Natriuretic Peptide > 76186 pg/mL (0-124) Total Protein 6.8 g/dL (6.4-8.2) Albumin 2.6 g/dL (3.4-5.0) Albumin/Globulin Ratio 0.6 (1.0-1.7) Influenza Type A Antigen Negative (NEGATIVE) Influenza Type B Antigen Negative (NEGATIVE) Test 06/16/18 22:13 06/17/18 04:10 Glucose (Fingerstick) 162 mg/dL (70-99) White Blood Count 37.5 x10^3/uL (4.0-11.0) Red Blood Count 2.22 x10^6/uL (3.50-5.40) Hemoglobin 7.0 g/dL (12.0-15.5) Hematocrit 22.6 % (36.0-47.0) Mean Corpuscular Volume 102 fL (79-100) Mean Corpuscular Hemoglobin 32 pg (25-35) Mean Corpuscular Hemoglobin Concent 31 g/dL (31-37) Red Cell Distribution Width 17.5 % (11.5-14.5) Platelet Count 277 x10^3/uL (140-400) Neutrophils (%) (Auto) 96 % (31-73) Lymphocytes (%) (Auto) 2 % (24-48) Monocytes (%) (Auto) 3 % (0-9) Eosinophils (%) (Auto) 0 % (0-3) Basophils (%) (Auto) 0 % (0-3) Neutrophils # (Auto) 35.8 x10^3uL (1.8-7.7) Lymphocytes # (Auto) 0.7 x10^3/uL (1.0-4.8) Monocytes # (Auto) 1.0 x10^3/uL (0.0-1.1) Eosinophils # (Auto) 0.0 x10^3/uL (0.0-0.7) Basophils # (Auto) 0.0 x10^3/uL (0.0-0.2) Sodium Level 139 mmol/L (136-145) Potassium Level 5.1 mmol/L (3.5-5.1) Chloride Level 98 mmol/L (98-107) Carbon Dioxide Level 24 mmol/L (21-32) Anion Gap 17 (6-14) Blood Urea Nitrogen 67 mg/dL (7-20) Creatinine 6.0 mg/dL (0.6-1.0) Estimated GFR (Cockcroft-Gault) 7.4 Glucose Level 194 mg/dL (70-99) Calcium Level 9.2 mg/dL (8.5-10.1) Objective Assessment Sepsis - POA 06/16/2018 Fever Abx allergies Leukocytosis -s/p solumedrol Multiple wounds - Anemia Encephalopathy - improving CKD on PD/HD RUE ? hematoma about the fistula Plan Plan of Care Dose Dapto - (Ho VRE/? MRSA)/Flagyl/Micafungin Cont Cefepime - s/p Levoflox times one 06/16 F/u labs and cults Consult Gen surgical for wound eval ? Need for PD cath Await Vascular and Renal f/u 35 mins Previous records and [facility] records reviewed Thank you D/w nursing # [id number] ALBERTO NAVA MD Jun 17, 2018 07:02
[2018-06-17] MEDS: metroNIDAZOLE 500 MG TABLET PO SCH ×3 (07:26→22:58)
[2018-06-17] MEDS: MICAFUNGIN 100 MG in IV DEXTROSE 5% 100ML 100 ML IV SCH (07:27)
[2018-06-17] MEDS: SEVELAMER CARBONATE 800 MG TABLET. PO SCH ×3 (07:41→17:50)
[2018-06-17] MEDS: ASPIRIN CHEWABLE 81 MG TABLET. PO SCH (07:41)
[2018-06-17] MEDS: CARVEDILOL 3.125 MG TABLET. PO SCH ×2 (07:56→17:00)
--- NOTE | 2018-06-17 07:59 | RAD ---
Right upper extremity arterial ultrasound, 06/17/2018: HISTORY: Bruising and swelling, right upper arm, known AV fistula Duplex evaluation of the major arteries in the right upper extremity was performed including grayscale, color-flow and spectral Doppler analysis. The right subclavian artery is patent. The peak systolic velocity within the proximal aspect of this vessel is high measuring 345 cm/s. This could be on a technical basis or related to stenosis at its origin. The right subclavian, axillary and brachial arteries are patent. There is a mild velocity acceleration in the distal brachial artery up to 255 cm/s. An AV fistula is evident arising from the distal brachial artery at the antecubital fossa level with the graft or runoff vein extending superiorly to the subclavian vein. This graft is widely patent. Patent radial and ulnar arteries are present in the forearm. There is a 6.9 x 5.7 x 2.4 cm hypoechoic process in the upper arm in the area of swelling. This lies medial to the graft. This structure demonstrates low level internal echoes and septations. There is no internal color flow to suggest pseudoaneurysm. The appearance is most compatible with a hematoma. Infection within this process cannot be excluded. IMPRESSION: 1. Patent AV fistula/graft in the right upper arm. 2. Avascular, heterogeneous hypoechoic mass in the right upper arm most compatible with a hematoma. 3. High peak systolic velocity in the proximal right subclavian artery raising the possibility of some degree of stenosis at its origin. Electronically signed by: Ronald Levy MD (06/17/2018 7:56 AM) [facility]
[2018-06-17] MEDS: INSULIN LISPRO 300 UNITS/3 ML INSULN.PEN. SQ SCH ×3 (08:00→23:48)
--- NOTE | 2018-06-17 08:45 | PDOC2 ---
MARIS MI POOL MANAGER 06/17/18 0845: CONSULT Date of Consult Date of Consult DATE: 06/17/18 TIME: 08:28 Reason for Consult Reason for Consult: decub Referring Physician Referring Physician: Dr Daly Identification/Chief Complaint Chief Complaint sepsis Source Source: Chart review, Patient History of Present Illness Reason for Visit: Admitted from [facility] with increasing SOA, altered mental status. Sepsis noted on admission Multiple medical issues, multiple wounds to upper and lower extremities ESRD on HD consult to Gen surg for eval of decub on buttock She does have a PC cath in place, however has not been using Recent groin I&D by vascular with graft placement In March CT showed a fluid collection, however repeat CT demonstrated fluid filled stomach Past Medical History Cardiovascular: AFIB, CAD, CHF, HTN, AK, Hyperlipidemia, Other Pulmonary: Asthma, Bronchitis, COPD, Pneumonia, Other CENTRAL NERVOUS SYSTEM: Periperal neuropathy GI: Irritable bowel disease, Peptic Ulcer disease, Other Heme/Onc: Anemia NOS Hepatobiliary: No pertinent hx Psych: Anxiety, Depression Musculoskeletal: Osteoarthritis Rheumatologic: Fibromyalgia Infectious disease: Other Renal/: Chronic renal failure Endocrine: Diabetes Past Surgical History Past Surgical History: CABG, Cataract Removal, Hysterectomy, Other Family History Family History: Diabetes, Hypertension Social History 1 pack per day ALCOHOL: none Drugs: None Lives: with Family Current Problem List Problem List Problems Medical Problems: (1) End-stage renal disease on hemodialysis Status: Acute (2) Sepsis Status: Acute Current Medications Current Medications Current Medications Albuterol/ Ipratropium (Duoneb) 3 ml 1X ONCE NEB Last administered on at 14:38; Start 06/16/18 at 14:15; Stop 06/16/18 at 14:16; Status DC Methylprednisolone Sodium Succinate (SOLU-Medrol 125MG VIAL) 125 mg 1X ONCE IV Last administered on 06/16/18at 17:20; Start 06/16/18 at 16:00; Stop 06/16/18 at 16:01; Status DC Levofloxacin/ Dextrose 100 ml @ 100 mls/hr 1X ONCE IV Last administered on at 17:20; Start 06/16/18 at 16:45; Stop 06/16/18 at 17:44; Status DC Vancomycin HCl 250 ml @ 250 mls/hr 1X ONCE IV ; Start 06/16/18 at 16:45; Stop 06/16/18 at 17:44; Status UNV Vancomycin HCl 1.75 gm/Sodium Chloride 500 ml @ 250 mls/hr 1X ONCE IV Last administered on 06/16/18at 17:19; Start 06/16/18 at 17:45; Stop 06/16/18 at 19:44 ; Status DC Ondansetron HCl (Zofran) 4 mg PRN Q8HRS PRN IV NAUSEA/VOMITING; Start 06/16/18 at 17:15; Stop 06/17/18 at 17:14 Acetaminophen (Tylenol) 650 mg PRN Q4HRS PRN PO FEVER Last administered on 06/16at 18:21; Start 06/16/18 at 17:15; Stop 06/16/18 at 19:29; Status DC Hydromorphone HCl (Dilaudid) 0.5 mg PRN Q3HRS PRN IVP PAIN; Start 06/16/18 at 19:30 Hydromorphone HCl (Dilaudid) 1 mg PRN Q3HRS PRN IVP PAIN Last administered on at 19:37; Start 06/16/18 at 19:30 Acetaminophen/ Hydrocodone Bitart (Lortab 5/325) 1 tab PRN Q6HRS PRN PO PAIN; Start 06/16/18 at 19:30 Acetaminophen (Tylenol) 650 mg PRN Q6HRS PRN PO FEVER; Start 06/16/18 at 19:30 Insulin Human Lispro (HumaLOG) 0-5 UNITS TIDWMEALS SQ ; Start 06/17/18 at 08:00 Dextrose (Dextrose 50%-Water Syringe) 12.5 gm PRN Q15MIN PRN IV SEE COMMENTS; Start 06/16/18 at 19:30 Amiodarone HCl (Cordarone) 200 mg DAILY PO ; Start 06/17/18 at 09:00 Aspirin (Children'S Aspirin) 81 mg DAILYWBKFT PO Last administered on at 07:41; Start 06/17/18 at 08:00 Carbamazepine (TEGretol) 200 mg BID PO ; Start 06/17/18 at 09:00 Carvedilol (Coreg) 12.5 mg BIDWMEALS PO ; Start 06/17/18 at 08:00 Docusate Sodium (Colace) 100 mg PRN BID PRN PO CONSTIPATION; Start 06/16/18 at 23:30 Famotidine (Pepcid) 20 mg HS PO ; Start 06/17/18 at 21:00 Ferrous Sulfate (Feosol) 325 mg DAILY PO ; Start 06/17/18 at 09:00 Guaifenesin (Mucinex) 600 mg BID PO ; Start 06/17/18 at 09:00 Insulin Glargine (Lantus) 15 units PRN QHS PRN SQ diabetes; Start 06/16/18 at 23:30 Insulin Human Lispro (HumaLOG) 5 units PRN TID PRN SQ Diabetes; Start 06/16/18 at 23:30 Albuterol/ Ipratropium (Duoneb) 3 ml PRN QID PRN NEB shortness of breath; Start 06/16/18 at 23:30 Prochlorperazine Maleate (Compazine) 10 mg PRN Q6HRS PRN PO NAUSEA/VOMITING; Start 06/16/18 at 23:30 Sevelamer Carbonate (Renvela) 1,600 mg TIDWMEALS PO Last administered on at 07:41; Start 06/17/18 at 08:00 Ticagrelor (Brilinta) 90 mg BID PO ; Start 06/17/18 at 09:00 Tramadol HCl (Ultram) 50 mg PRN Q4HRS PRN PO HEADACHE; Start 06/16/18 at 23:30 Atorvastatin Calcium (Lipitor) 80 mg HS PO ; Start 06/17/18 at 21:00 Calcitriol (Rocaltrol) 0.25 mcg DAILY PO ; Start 06/17/18 at 09:00 Diltiazem HCl (Cardizem 24hr Cd) 120 mg DAILY PO ; Start 06/17/18 at 09:00 Diphenhydramine HCl (Benadryl) 50 mg PRN Q8HRS PRN PO ITCHING; Start 06/16/18 at 23:30 Erythromycin (E-Mycin) 250 mg BID PO ; Start 06/17/18 at 09:00 Hydralazine HCl (Apresoline) 10 mg PRN TID PRN PO HYPERTENSION, SEE COMMENTS; Start 06/16/18 at 23:30 Lidocaine (Lidoderm) 1 patch PRN DAILY PRN TP PAIN; Start 06/16/18 at 23:30 Zolpidem Tartrate (Ambien) 5 mg QHS PO ; Start 06/17/18 at 21:00 Niacin (Slo-Niacin) 250 mg BID PO ; Start 06/17/18 at 09:00 Polyethylene Glycol (miraLAX PACKET) 17 gm DAILY PO ; Start 06/17/18 at 09:00 Sodium Chloride (Saline Mist Nasal) 1 erich PRN BID PRN NS Congestion; Start at 23:30 Cefepime HCl (Maxipime) 1 gm Q24H IVP ; Start 06/17/18 at 22:00 Cefepime HCl (Maxipime) 1 gm ONCE ONCE IVP Last administered on 06/17/18at 00: 15; Start 06/17/18 at 00:00; Stop 06/17/18 at 00:01; Status DC Miscellaneous (Lidoderm Patch Removal) 1 ea QHS MC ; Start 06/17/18 at 21:00 Acetaminophen (Tylenol) 650 mg 1X PRN PRN PO PRE-TRANSFUSION; Start 06/17/18 at 05:15 Diphenhydramine HCl (Benadryl Oral Elixir) 12.5 mg 1X PRN PRN PO PRE- TRANSFUSION; Start 06/17/18 at 05:15 Diphenhydramine HCl (Benadryl) 25 mg PRN 1X PRN PO PRE-TRANSFUSION; Start 06/17 at 05:15 Daptomycin 360 mg/ Sodium Chloride 50 ml @ 100 mls/hr Q48H IV ; Start 06/17/18 at 07:00 Micafungin Sodium 100 mg/Dextrose 100 ml @ 100 mls/hr Q24H IV Last administered on 06/17/18at 07:27; Start 06/17/18 at 06:30 Metronidazole (Flagyl) 500 mg Q8HRS PO Last administered on 06/17/18at 07:26; Start 06/17/18 at 06:30 Active Scripts Active Brilinta (Ticagrelor) 90 Mg Tablet 90 Mg PO BID 30 Days Reported Renvela (Sevelamer Carbonate) 800 Mg Tablet 2 Tab PO TID Melatonin 3 Mg Tablet 9 Mg PO QHS Lantus Solostar (Insulin Glargine,Hum.rec.anlog) 100 Unit/1 Ml Insuln.pen 15 Unit SQ QHS PRN Duoneb 0.5-3(2.5) Mg/3 Ml (Albuterol/Ipratropium) 3 Ml Ampul.neb 3 Ml NEB QID PRN Humalog (Insulin Lispro) 100 Unit/1 Ml Vial 100 Unit SQ TID Humalog (Insulin Lispro) 100 Unit/1 Ml Vial 5 Unit SQ TID PRN Guaifenesin 600 Mg Tablet.er 600 Mg PO BID Apex Saline (Sodium Chloride) 50 Ml Peterson 1 Peterson NS BID PRN Acetaminophen 500 Mg Tablet 650 Mg PO Q6HRS PRN Morphine Sulfate Er (Morphine Sulfate) 30 Mg Tablet.er 1 Tab PO BID Aspirin 81 Mg Tab.chew 1 Tab PO DAILY Calcitriol 0.25 Mcg Capsule 1 Cap PO DAILY Pepcid (Famotidine) 20 Mg Tablet 20 Mg PO HS Niacin 250 Mg Tablet 250 Mg PO BID Miralax (Polyethylene Glycol 3350) 17 Gm Powd.pack 1 Packet PO DAILY Hydralazine Hcl 10 Mg Tablet 1 Tab PO PRN TID PRN Oxycodone Hcl Immed.release (Oxycodone Hcl) 5 Mg Tablet 2 Tab PO PRN Q4HRS PRN Ferrous Sulfate 325 Mg Tablet 1 Tab PO DAILY Diphenhydramine Hcl 50 Mg Capsule 1 Cap PO PRN Q8HRS PRN Prochlorperazine Maleate 10 Mg Tablet 1 Tab PO PRN Q6HRS PRN Lidocaine 1 Each Adh..patch 1 Each TP PRN DAILY PRN Tegretol (Carbamazepine) 200 Mg Tablet 1 Tab PO BID Tramadol Hcl 50 Mg Tablet 50 Mg PO Q4HRS PRN Carvedilol (Carvedilol) 3.125 Mg Tablet 12.5 Mg PO BID Erythromycin (Erythromycin Base) 250 Mg Capsule.dr 250 Mg PO BID Cardizem Cd (Diltiazem Hcl) 180 Mg Cap.er.24h 120 Mg PO DAILY Amiodarone Hcl 200 Mg Tablet 1 Tab PO DAILY Lipitor (Atorvastatin Calcium) 80 Mg Tablet 80 Mg PO HS Docusate Sodium 100 Mg Capsule 1 Cap PO PRN PRN Allergies Allergies: Coded Allergies: Sulfa (Sulfonamide Antibiotics) (Verified Allergy, Severe, Anaphylaxis, ) meropenem (Verified Allergy, Intermediate, Rash, 03/10/18) Tolerates ancef piperacillin (Verified Allergy, Intermediate, Rash, 03/10/18) Tolerates ancef strawberry (Verified Allergy, Intermediate, 03/10/18) tazobactam (Verified Allergy, Intermediate, 03/10/18) cefazolin (Verified Adverse Reaction, Intermediate, Itching, 03/10/18) Causes Vomiting fentanyl (Verified Adverse Reaction, Intermediate, Nausea and Vomiting, ) Vomiting ROS General: YES: Fatigue; No: Chills PSYCHOLOGICAL ROS: YES: Anxiety, Depression Eyes: Yes Blurry vision; No Double vision HEENT: No: Heacaches, Sore Throat Hematological and Lymphatic: YES: Bleeding Problems, Brusing; No: Blood Clots Respiratory: YES: Cough, Shortness of breath Cardiovascular: No Chest Pain, No Palpitations Gastrointestinal: Yes Nausea, Yes Vomiting; No Abdominal Pain Genitourinary: No Dysuria, No Hematuria Musculoskeletal: Yes Joint Pain, Yes Muscular Weakness Neurological: Yes Confusion; No Numbness/Tingling Skin: Yes Other (see hpi) Physical Exam General: Alert, Oriented X3, Cooperative, No acute distress HEENT: PERRLA, Mucous membr. moist/pink Lungs: Clear to auscultation, Normal air movement Heart: Regular rate, Normal S1, Normal S2, No murmurs Abdomen: Soft, No tenderness, Other (PD cath in place) Extremities: Other (LLE amputation ) Skin: Other (noted wounds to LEs. UE with fistula, ? hematoma--left buttock with 3 wounds, one with sloughing material ) Neuro: Normal speech, Sensation intact Psych/Mental Status: Mental status NL, Mood NL Vitals VITALS Vital Signs Date Time Temp Pulse Resp B/P (MAP) Pulse Ox O2 Delivery O2 Flow Rate FiO2 06/17/18 08:00 Room Air 06/17/18 08:00 99.0 79 11 110/55 (73) 97 99.0 06/16/18 19:45 2.0 Labs Labs Laboratory Tests Test 06/16/18 14:00 06/16/18 14:40 06/16/18 17:36 06/16/18 19:15 White Blood Count 26.4 x10^3/uL (4.0-11.0) Red Blood Count 2.44 x10^6/uL (3.50-5.40) Hemoglobin 7.9 g/dL (12.0-15.5) Hematocrit 24.6 % (36.0-47.0) Mean Corpuscular Volume 101 fL (79-100) Mean Corpuscular Hemoglobin 32 pg (25-35) Mean Corpuscular Hemoglobin Concent 32 g/dL (31-37) Red Cell Distribution Width 17.1 % (11.5-14.5) Platelet Count 316 x10^3/uL (140-400) Neutrophils (%) (Auto) 97 % (31-73) Lymphocytes (%) (Auto) 1 % (24-48) Monocytes (%) (Auto) 2 % (0-9) Eosinophils (%) (Auto) 0 % (0-3) Basophils (%) (Auto) 0 % (0-3) Neutrophils # (Auto) 25.5 x10^3uL (1.8-7.7) Lymphocytes # (Auto) 0.2 x10^3/uL (1.0-4.8) Monocytes # (Auto) 0.6 x10^3/uL (0.0-1.1) Eosinophils # (Auto) 0.0 x10^3/uL (0.0-0.7) Basophils # (Auto) 0.1 x10^3/uL (0.0-0.2) Segmented Neutrophils % 70 % (35-66) Band Neutrophils % 21 % (0-9) Lymphocytes % 3 % (24-48) Monocytes % 5 % (0-10) Metamyelocytes % 1 % (0-0) Smudge Cells Present Toxic Vacuolation Slight Platelet Estimate Adequate (ADEQUATE) Anisocytosis Slight Prothrombin Time 15.4 SEC (11.7-14.0) Prothromb Time International Ratio 1.3 (0.8-1.1) Activated Partial Thromboplast Time 34 SEC (24-38) Lactic Acid Level 1.3 mmol/L (0.4-2.0) 1.7 mmol/L (0.4-2.0) O2 Saturation 96 % (92-99) Arterial Blood pH 7.46 (7.35-7.45) Arterial Blood pCO2 at Patient Temp 36 mmHg (35-46) Arterial Blood pO2 at Patient Temp 87 mmHg (75-108) Arterial Blood HCO3 25 mmol/L (21-28) Arterial Blood Base Excess 2 mmol/L (-3-3) FiO2 28 Sodium Level 138 mmol/L (136-145) Potassium Level 4.7 mmol/L (3.5-5.1) Chloride Level 97 mmol/L (98-107) Carbon Dioxide Level 27 mmol/L (21-32) Anion Gap 14 (6-14) Blood Urea Nitrogen 58 mg/dL (7-20) Creatinine 5.3 mg/dL (0.6-1.0) Estimated GFR (Cockcroft-Gault) 8.5 BUN/Creatinine Ratio 11 (6-20) Glucose Level 132 mg/dL (70-99) Calcium Level 9.0 mg/dL (8.5-10.1) Magnesium Level 1.9 mg/dL (1.8-2.4) Total Bilirubin 0.9 mg/dL (0.2-1.0) Aspartate Amino Transf (AST/SGOT) 12 U/L (15-37) Alanine Aminotransferase (ALT/SGPT) 9 U/L (14-59) Alkaline Phosphatase 114 U/L (46-116) Ammonia 24 mcmol/L (11-34) Troponin I Quantitative 0.158 ng/mL (0.000-0.055) SN-Cti-O-Type Natriuretic Peptide > 31776 pg/mL (0-124) Total Protein 6.8 g/dL (6.4-8.2) Albumin 2.6 g/dL (3.4-5.0) Albumin/Globulin Ratio 0.6 (1.0-1.7) Influenza Type A Antigen Negative (NEGATIVE) Influenza Type B Antigen Negative (NEGATIVE) Test 06/16/18 22:13 06/17/18 04:10 Glucose (Fingerstick) 162 mg/dL (70-99) White Blood Count 37.5 x10^3/uL (4.0-11.0) Red Blood Count 2.22 x10^6/uL (3.50-5.40) Hemoglobin 7.0 g/dL (12.0-15.5) Hematocrit 22.6 % (36.0-47.0) Mean Corpuscular Volume 102 fL (79-100) Mean Corpuscular Hemoglobin 32 pg (25-35) Mean Corpuscular Hemoglobin Concent 31 g/dL (31-37) Red Cell Distribution Width 17.5 % (11.5-14.5) Platelet Count 277 x10^3/uL (140-400) Neutrophils (%) (Auto) 96 % (31-73) Lymphocytes (%) (Auto) 2 % (24-48) Monocytes (%) (Auto) 3 % (0-9) Eosinophils (%) (Auto) 0 % (0-3) Basophils (%) (Auto) 0 % (0-3) Neutrophils # (Auto) 35.8 x10^3uL (1.8-7.7) Lymphocytes # (Auto) 0.7 x10^3/uL (1.0-4.8) Monocytes # (Auto) 1.0 x10^3/uL (0.0-1.1) Eosinophils # (Auto) 0.0 x10^3/uL (0.0-0.7) Basophils # (Auto) 0.0 x10^3/uL (0.0-0.2) Sodium Level 139 mmol/L (136-145) Potassium Level 5.1 mmol/L (3.5-5.1) Chloride Level 98 mmol/L (98-107) Carbon Dioxide Level 24 mmol/L (21-32) Anion Gap 17 (6-14) Blood Urea Nitrogen 67 mg/dL (7-20) Creatinine 6.0 mg/dL (0.6-1.0) Estimated GFR (Cockcroft-Gault) 7.4 Glucose Level 194 mg/dL (70-99) Calcium Level 9.2 mg/dL (8.5-10.1) Laboratory Tests Test 06/16/18 14:00 06/16/18 14:40 06/16/18 17:36 06/16/18 19:15 White Blood Count 26.4 x10^3/uL (4.0-11.0) Red Blood Count 2.44 x10^6/uL (3.50-5.40) Hemoglobin 7.9 g/dL (12.0-15.5) Hematocrit 24.6 % (36.0-47.0) Mean Corpuscular Volume 101 fL (79-100) Mean Corpuscular Hemoglobin 32 pg (25-35) Mean Corpuscular Hemoglobin Concent 32 g/dL (31-37) Red Cell Distribution Width 17.1 % (11.5-14.5) Platelet Count 316 x10^3/uL (140-400) Neutrophils (%) (Auto) 97 % (31-73) Lymphocytes (%) (Auto) 1 % (24-48) Monocytes (%) (Auto) 2 % (0-9) Eosinophils (%) (Auto) 0 % (0-3) Basophils (%) (Auto) 0 % (0-3) Neutrophils # (Auto) 25.5 x10^3uL (1.8-7.7) Lymphocytes # (Auto) 0.2 x10^3/uL (1.0-4.8) Monocytes # (Auto) 0.6 x10^3/uL (0.0-1.1) Eosinophils # (Auto) 0.0 x10^3/uL (0.0-0.7) Basophils # (Auto) 0.1 x10^3/uL (0.0-0.2) Segmented Neutrophils % 70 % (35-66) Band Neutrophils % 21 % (0-9) Lymphocytes % 3 % (24-48) Monocytes % 5 % (0-10) Metamyelocytes % 1 % (0-0) Smudge Cells Present Toxic Vacuolation Slight Platelet Estimate Adequate (ADEQUATE) Anisocytosis Slight Prothrombin Time 15.4 SEC (11.7-14.0) Prothromb Time International Ratio 1.3 (0.8-1.1) Activated Partial Thromboplast Time 34 SEC (24-38) Lactic Acid Level 1.3 mmol/L (0.4-2.0) 1.7 mmol/L (0.4-2.0) O2 Saturation 96 % (92-99) Arterial Blood pH 7.46 (7.35-7.45) Arterial Blood pCO2 at Patient Temp 36 mmHg (35-46) Arterial Blood pO2 at Patient Temp 87 mmHg (75-108) Arterial Blood HCO3 25 mmol/L (21-28) Arterial Blood Base Excess 2 mmol/L (-3-3) FiO2 28 Sodium Level 138 mmol/L (136-145) Potassium Level 4.7 mmol/L (3.5-5.1) Chloride Level 97 mmol/L (98-107) Carbon Dioxide Level 27 mmol/L (21-32) Anion Gap 14 (6-14) Blood Urea Nitrogen 58 mg/dL (7-20) Creatinine 5.3 mg/dL (0.6-1.0) Estimated GFR (Cockcroft-Gault) 8.5 BUN/Creatinine Ratio 11 (6-20) Glucose Level 132 mg/dL (70-99) Calcium Level 9.0 mg/dL (8.5-10.1) Magnesium Level 1.9 mg/dL (1.8-2.4) Total Bilirubin 0.9 mg/dL (0.2-1.0) Aspartate Amino Transf (AST/SGOT) 12 U/L (15-37) Alanine Aminotransferase (ALT/SGPT) 9 U/L (14-59) Alkaline Phosphatase 114 U/L (46-116) Ammonia 24 mcmol/L (11-34) Troponin I Quantitative 0.158 ng/mL (0.000-0.055) TD-Uxf-V-Type Natriuretic Peptide > 22777 pg/mL (0-124) Total Protein 6.8 g/dL (6.4-8.2) Albumin 2.6 g/dL (3.4-5.0) Albumin/Globulin Ratio 0.6 (1.0-1.7) Influenza Type A Antigen Negative (NEGATIVE) Influenza Type B Antigen Negative (NEGATIVE) Test 06/16/18 22:13 06/17/18 04:10 Glucose (Fingerstick) 162 mg/dL (70-99) White Blood Count 37.5 x10^3/uL (4.0-11.0) Red Blood Count 2.22 x10^6/uL (3.50-5.40) Hemoglobin 7.0 g/dL (12.0-15.5) Hematocrit 22.6 % (36.0-47.0) Mean Corpuscular Volume 102 fL (79-100) Mean Corpuscular Hemoglobin 32 pg (25-35) Mean Corpuscular Hemoglobin Concent 31 g/dL (31-37) Red Cell Distribution Width 17.5 % (11.5-14.5) Platelet Count 277 x10^3/uL (140-400) Neutrophils (%) (Auto) 96 % (31-73) Lymphocytes (%) (Auto) 2 % (24-48) Monocytes (%) (Auto) 3 % (0-9) Eosinophils (%) (Auto) 0 % (0-3) Basophils (%) (Auto) 0 % (0-3) Neutrophils # (Auto) 35.8 x10^3uL (1.8-7.7) Lymphocytes # (Auto) 0.7 x10^3/uL (1.0-4.8) Monocytes # (Auto) 1.0 x10^3/uL (0.0-1.1) Eosinophils # (Auto) 0.0 x10^3/uL (0.0-0.7) Basophils # (Auto) 0.0 x10^3/uL (0.0-0.2) Sodium Level 139 mmol/L (136-145) Potassium Level 5.1 mmol/L (3.5-5.1) Chloride Level 98 mmol/L (98-107) Carbon Dioxide Level 24 mmol/L (21-32) Anion Gap 17 (6-14) Blood Urea Nitrogen 67 mg/dL (7-20) Creatinine 6.0 mg/dL (0.6-1.0) Estimated GFR (Cockcroft-Gault) 7.4 Glucose Level 194 mg/dL (70-99) Calcium Level 9.2 mg/dL (8.5-10.1) Assessment/Plan Assessment/Plan sepsis on admission, AMS ESRD, CAD wound care consult for wounds PD cath ---abdomen is soft, ND, NTTP--could consider CT to eval Vascular eval--no recs, stable per nursing will review with Dr Rush--pt still plans to do PD once out of facility(can not do at facility shes been at) CECE RUSH MD 06/17/18 2924: CONSULT Assessment/Plan Assessment/Plan Agree with above, will ask wound care to evaluate MARIS MI APRN Jun 17, 2018 08:45 CECE RUSH MD Jun 17, 2018 14:04
[2018-06-17] MEDS: DAPTOmycin (GENERIC) IVPB 360 MG in IV NORMAL SALINE 50ML 50 ML IV SCH (08:46)
--- NOTE | 2018-06-17 09:19 | PDOC2 ---
CONSULT Date of Consult Date of Consult DATE: 06/17/18 TIME: 09:14 Reason for Consult Reason for Consult: ESRD Source Source: Chart review, Patient History of Present Illness Reason for Visit: Pt is a 52 yo CF ESRD on HD , afib, CAD, CHF, HTN, anxiety/depression,PVD s/p LLE BKA, h/o vitreous hemorrhage with multiple prolonged hospitalizations p/w progressive shortness of breath and right leg pain At SNF was noted with shortness of breath and decreased mentation.Her O2 sat was 80% as per EMS, she was placed on 3 L of oxygen via nonrebreather mask and later switched to O2 by NC on 6 L She denies any N/V. Currently asymptomatic . Has PD cath She has a RUE large hematoma and a gluteal pressure ulcer Past Medical History Cardiovascular: AFIB, CAD, CHF, HTN, SC, Hyperlipidemia, Other Pulmonary: Asthma, Bronchitis, COPD, Pneumonia, Other CENTRAL NERVOUS SYSTEM: Periperal neuropathy GI: Irritable bowel disease, Peptic Ulcer disease, Other Heme/Onc: Anemia NOS Hepatobiliary: No pertinent hx Psych: Anxiety, Depression Musculoskeletal: Osteoarthritis Rheumatologic: Fibromyalgia Infectious disease: Other Renal/: Chronic renal failure Endocrine: Diabetes Past Surgical History Past Surgical History: CABG, Cataract Removal, Hysterectomy, Other Family History Family History: Diabetes, Hypertension Social History 1 pack per day ALCOHOL: none Drugs: None Lives: with Family Current Problem List Problem List Problems Medical Problems: (1) End-stage renal disease on hemodialysis Status: Acute (2) Sepsis Status: Acute Current Medications Current Medications Current Medications Albuterol/ Ipratropium (Duoneb) 3 ml 1X ONCE NEB Last administered on at 14:38; Start 06/16/18 at 14:15; Stop 06/16/18 at 14:16; Status DC Methylprednisolone Sodium Succinate (SOLU-Medrol 125MG VIAL) 125 mg 1X ONCE IV Last administered on 06/16/18at 17:20; Start 06/16/18 at 16:00; Stop 06/16/18 at 16:01; Status DC Levofloxacin/ Dextrose 100 ml @ 100 mls/hr 1X ONCE IV Last administered on at 17:20; Start 06/16/18 at 16:45; Stop 06/16/18 at 17:44; Status DC Vancomycin HCl 250 ml @ 250 mls/hr 1X ONCE IV ; Start 06/16/18 at 16:45; Stop 06/16/18 at 17:44; Status UNV Vancomycin HCl 1.75 gm/Sodium Chloride 500 ml @ 250 mls/hr 1X ONCE IV Last administered on 06/16/18at 17:19; Start 06/16/18 at 17:45; Stop 06/16/18 at 19:44 ; Status DC Ondansetron HCl (Zofran) 4 mg PRN Q8HRS PRN IV NAUSEA/VOMITING; Start 06/16/18 at 17:15; Stop 06/17/18 at 17:14 Acetaminophen (Tylenol) 650 mg PRN Q4HRS PRN PO FEVER Last administered on 06/16at 18:21; Start 06/16/18 at 17:15; Stop 06/16/18 at 19:29; Status DC Hydromorphone HCl (Dilaudid) 0.5 mg PRN Q3HRS PRN IVP PAIN; Start 06/16/18 at 19:30 Hydromorphone HCl (Dilaudid) 1 mg PRN Q3HRS PRN IVP PAIN Last administered on at 19:37; Start 06/16/18 at 19:30 Acetaminophen/ Hydrocodone Bitart (Lortab 5/325) 1 tab PRN Q6HRS PRN PO PAIN; Start 06/16/18 at 19:30 Acetaminophen (Tylenol) 650 mg PRN Q6HRS PRN PO FEVER; Start 06/16/18 at 19:30 Insulin Human Lispro (HumaLOG) 0-5 UNITS TIDWMEALS SQ ; Start 06/17/18 at 08:00 Dextrose (Dextrose 50%-Water Syringe) 12.5 gm PRN Q15MIN PRN IV SEE COMMENTS; Start 06/16/18 at 19:30 Amiodarone HCl (Cordarone) 200 mg DAILY PO ; Start 06/17/18 at 09:00 Aspirin (Children'S Aspirin) 81 mg DAILYWBKFT PO Last administered on at 07:41; Start 06/17/18 at 08:00 Carbamazepine (TEGretol) 200 mg BID PO ; Start 06/17/18 at 09:00 Carvedilol (Coreg) 12.5 mg BIDWMEALS PO ; Start 06/17/18 at 08:00 Docusate Sodium (Colace) 100 mg PRN BID PRN PO CONSTIPATION; Start 06/16/18 at 23:30 Famotidine (Pepcid) 20 mg HS PO ; Start 06/17/18 at 21:00 Ferrous Sulfate (Feosol) 325 mg DAILY PO ; Start 06/17/18 at 09:00 Guaifenesin (Mucinex) 600 mg BID PO ; Start 06/17/18 at 09:00 Insulin Glargine (Lantus) 15 units PRN QHS PRN SQ diabetes; Start 06/16/18 at 23:30 Insulin Human Lispro (HumaLOG) 5 units PRN TID PRN SQ Diabetes; Start 06/16/18 at 23:30 Albuterol/ Ipratropium (Duoneb) 3 ml PRN QID PRN NEB shortness of breath; Start 06/16/18 at 23:30 Prochlorperazine Maleate (Compazine) 10 mg PRN Q6HRS PRN PO NAUSEA/VOMITING; Start 06/16/18 at 23:30 Sevelamer Carbonate (Renvela) 1,600 mg TIDWMEALS PO Last administered on at 07:41; Start 06/17/18 at 08:00 Ticagrelor (Brilinta) 90 mg BID PO ; Start 06/17/18 at 09:00 Tramadol HCl (Ultram) 50 mg PRN Q4HRS PRN PO HEADACHE; Start 06/16/18 at 23:30 Atorvastatin Calcium (Lipitor) 80 mg HS PO ; Start 06/17/18 at 21:00 Calcitriol (Rocaltrol) 0.25 mcg DAILY PO ; Start 06/17/18 at 09:00 Diltiazem HCl (Cardizem 24hr Cd) 120 mg DAILY PO ; Start 06/17/18 at 09:00 Diphenhydramine HCl (Benadryl) 50 mg PRN Q8HRS PRN PO ITCHING; Start 06/16/18 at 23:30 Erythromycin (E-Mycin) 250 mg BID PO ; Start 06/17/18 at 09:00 Hydralazine HCl (Apresoline) 10 mg PRN TID PRN PO HYPERTENSION, SEE COMMENTS; Start 06/16/18 at 23:30 Lidocaine (Lidoderm) 1 patch PRN DAILY PRN TP PAIN; Start 06/16/18 at 23:30 Zolpidem Tartrate (Ambien) 5 mg QHS PO ; Start 06/17/18 at 21:00 Niacin (Slo-Niacin) 250 mg BID PO ; Start 06/17/18 at 09:00 Polyethylene Glycol (miraLAX PACKET) 17 gm DAILY PO ; Start 06/17/18 at 09:00 Sodium Chloride (Saline Mist Nasal) 1 erich PRN BID PRN NS Congestion; Start at 23:30 Cefepime HCl (Maxipime) 1 gm Q24H IVP ; Start 06/17/18 at 22:00 Cefepime HCl (Maxipime) 1 gm ONCE ONCE IVP Last administered on 06/17/18at 00: 15; Start 06/17/18 at 00:00; Stop 06/17/18 at 00:01; Status DC Miscellaneous (Lidoderm Patch Removal) 1 ea QHS MC ; Start 06/17/18 at 21:00 Acetaminophen (Tylenol) 650 mg 1X PRN PRN PO PRE-TRANSFUSION; Start 06/17/18 at 05:15 Diphenhydramine HCl (Benadryl Oral Elixir) 12.5 mg 1X PRN PRN PO PRE- TRANSFUSION; Start 06/17/18 at 05:15 Diphenhydramine HCl (Benadryl) 25 mg PRN 1X PRN PO PRE-TRANSFUSION; Start 06/17 at 05:15 Daptomycin 360 mg/ Sodium Chloride 50 ml @ 100 mls/hr Q48H IV Last administered on 06/17/18at 08:46; Start 06/17/18 at 07:00 Micafungin Sodium 100 mg/Dextrose 100 ml @ 100 mls/hr Q24H IV Last administered on 06/17/18at 07:27; Start 06/17/18 at 06:30 Metronidazole (Flagyl) 500 mg Q8HRS PO Last administered on 06/17/18at 07:26; Start 06/17/18 at 06:30 Active Scripts Active Brilinta (Ticagrelor) 90 Mg Tablet 90 Mg PO BID 30 Days Reported Renvela (Sevelamer Carbonate) 800 Mg Tablet 2 Tab PO TID Melatonin 3 Mg Tablet 9 Mg PO QHS Lantus Solostar (Insulin Glargine,Hum.rec.anlog) 100 Unit/1 Ml Insuln.pen 15 Unit SQ QHS PRN Duoneb 0.5-3(2.5) Mg/3 Ml (Albuterol/Ipratropium) 3 Ml Ampul.neb 3 Ml NEB QID PRN Humalog (Insulin Lispro) 100 Unit/1 Ml Vial 100 Unit SQ TID Humalog (Insulin Lispro) 100 Unit/1 Ml Vial 5 Unit SQ TID PRN Guaifenesin 600 Mg Tablet.er 600 Mg PO BID [place] Saline (Sodium Chloride) 50 Ml [place] 1 [place] NS BID PRN Acetaminophen 500 Mg Tablet 650 Mg PO Q6HRS PRN Morphine Sulfate Er (Morphine Sulfate) 30 Mg Tablet.er 1 Tab PO BID Aspirin 81 Mg Tab.chew 1 Tab PO DAILY Calcitriol 0.25 Mcg Capsule 1 Cap PO DAILY Pepcid (Famotidine) 20 Mg Tablet 20 Mg PO HS Niacin 250 Mg Tablet 250 Mg PO BID Miralax (Polyethylene Glycol 3350) 17 Gm Powd.pack 1 Packet PO DAILY Hydralazine Hcl 10 Mg Tablet 1 Tab PO PRN TID PRN Oxycodone Hcl Immed.release (Oxycodone Hcl) 5 Mg Tablet 2 Tab PO PRN Q4HRS PRN Ferrous Sulfate 325 Mg Tablet 1 Tab PO DAILY Diphenhydramine Hcl 50 Mg Capsule 1 Cap PO PRN Q8HRS PRN Prochlorperazine Maleate 10 Mg Tablet 1 Tab PO PRN Q6HRS PRN Lidocaine 1 Each Adh..patch 1 Each TP PRN DAILY PRN Tegretol (Carbamazepine) 200 Mg Tablet 1 Tab PO BID Tramadol Hcl 50 Mg Tablet 50 Mg PO Q4HRS PRN Carvedilol (Carvedilol) 3.125 Mg Tablet 12.5 Mg PO BID Erythromycin (Erythromycin Base) 250 Mg Capsule.dr 250 Mg PO BID Cardizem Cd (Diltiazem Hcl) 180 Mg Cap.er.24h 120 Mg PO DAILY Amiodarone Hcl 200 Mg Tablet 1 Tab PO DAILY Lipitor (Atorvastatin Calcium) 80 Mg Tablet 80 Mg PO HS Docusate Sodium 100 Mg Capsule 1 Cap PO PRN PRN Allergies Allergies: Coded Allergies: Sulfa (Sulfonamide Antibiotics) (Verified Allergy, Severe, Anaphylaxis, ) meropenem (Verified Allergy, Intermediate, Rash, 03/10/18) Tolerates ancef piperacillin (Verified Allergy, Intermediate, Rash, 03/10/18) Tolerates ancef strawberry (Verified Allergy, Intermediate, 03/10/18) tazobactam (Verified Allergy, Intermediate, 03/10/18) cefazolin (Verified Adverse Reaction, Intermediate, Itching, 03/10/18) Causes Vomiting fentanyl (Verified Adverse Reaction, Intermediate, Nausea and Vomiting, ) Vomiting ROS Review of System As per HPI Physical Exam Physical Exam General: Alert, Cooperative, NAD HEENT: Mucous membr. moist/pink Neck Supple Lungs: CTA ant, Non labored Heart: irregularly irregular Abdomen: Soft, No tenderness, PD cath in place Extremities:LLE BKA stump. RLE indurated, swollen,Rt UE w large hematoma, Rt AV shunt Skin: No rash Neuro: Grossly normal - No hartley Vital Signs Vital Signs Date Time Temp Pulse Resp B/P (MAP) Pulse Ox O2 Delivery O2 Flow Rate FiO2 06/17/18 08:00 Room Air 06/17/18 08:00 99.0 79 11 110/55 (73) 97 99.0 06/16/18 19:45 2.0 Assessment & Plan ESRD - HD on TTS E-Lytes and acid base stable, Vol/Pulm status stable Access- Rt UE AV graft Has PD cath, she refuses to remove it, she states she will go on PD once she is home Anemia- Hgb 7,PRBC on HD as per primary Sepsis/ Fever. ID following Multiple wounds Rt UE Hematoma - Vascular consulted, Rt US done Functioning patent right AV graft, Continue to be monitor PVD- s/p right femoropopliteal bypass, Sartorius muscle flap, right groin debridement , right toe amputations, left BKA. 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 Labs Laboratory Tests Test 06/16/18 14:00 06/16/18 14:40 06/16/18 17:36 06/16/18 19:15 White Blood Count 26.4 x10^3/uL (4.0-11.0) Red Blood Count 2.44 x10^6/uL (3.50-5.40) Hemoglobin 7.9 g/dL (12.0-15.5) Hematocrit 24.6 % (36.0-47.0) Mean Corpuscular Volume 101 fL (79-100) Mean Corpuscular Hemoglobin 32 pg (25-35) Mean Corpuscular Hemoglobin Concent 32 g/dL (31-37) Red Cell Distribution Width 17.1 % (11.5-14.5) Platelet Count 316 x10^3/uL (140-400) Neutrophils (%) (Auto) 97 % (31-73) Lymphocytes (%) (Auto) 1 % (24-48) Monocytes (%) (Auto) 2 % (0-9) Eosinophils (%) (Auto) 0 % (0-3) Basophils (%) (Auto) 0 % (0-3) Neutrophils # (Auto) 25.5 x10^3uL (1.8-7.7) Lymphocytes # (Auto) 0.2 x10^3/uL (1.0-4.8) Monocytes # (Auto) 0.6 x10^3/uL (0.0-1.1) Eosinophils # (Auto) 0.0 x10^3/uL (0.0-0.7) Basophils # (Auto) 0.1 x10^3/uL (0.0-0.2) Segmented Neutrophils % 70 % (35-66) Band Neutrophils % 21 % (0-9) Lymphocytes % 3 % (24-48) Monocytes % 5 % (0-10) Metamyelocytes % 1 % (0-0) Smudge Cells Present Toxic Vacuolation Slight Platelet Estimate Adequate (ADEQUATE) Anisocytosis Slight Prothrombin Time 15.4 SEC (11.7-14.0) Prothromb Time International Ratio 1.3 (0.8-1.1) Activated Partial Thromboplast Time 34 SEC (24-38) Lactic Acid Level 1.3 mmol/L (0.4-2.0) 1.7 mmol/L (0.4-2.0) O2 Saturation 96 % (92-99) Arterial Blood pH 7.46 (7.35-7.45) Arterial Blood pCO2 at Patient Temp 36 mmHg (35-46) Arterial Blood pO2 at Patient Temp 87 mmHg (75-108) Arterial Blood HCO3 25 mmol/L (21-28) Arterial Blood Base Excess 2 mmol/L (-3-3) FiO2 28 Sodium Level 138 mmol/L (136-145) Potassium Level 4.7 mmol/L (3.5-5.1) Chloride Level 97 mmol/L (98-107) Carbon Dioxide Level 27 mmol/L (21-32) Anion Gap 14 (6-14) Blood Urea Nitrogen 58 mg/dL (7-20) Creatinine 5.3 mg/dL (0.6-1.0) Estimated GFR (Cockcroft-Gault) 8.5 BUN/Creatinine Ratio 11 (6-20) Glucose Level 132 mg/dL (70-99) Calcium Level 9.0 mg/dL (8.5-10.1) Magnesium Level 1.9 mg/dL (1.8-2.4) Total Bilirubin 0.9 mg/dL (0.2-1.0) Aspartate Amino Transf (AST/SGOT) 12 U/L (15-37) Alanine Aminotransferase (ALT/SGPT) 9 U/L (14-59) Alkaline Phosphatase 114 U/L (46-116) Ammonia 24 mcmol/L (11-34) Troponin I Quantitative 0.158 ng/mL (0.000-0.055) ZB-Ckp-F-Type Natriuretic Peptide > 66058 pg/mL (0-124) Total Protein 6.8 g/dL (6.4-8.2) Albumin 2.6 g/dL (3.4-5.0) Albumin/Globulin Ratio 0.6 (1.0-1.7) Influenza Type A Antigen Negative (NEGATIVE) Influenza Type B Antigen Negative (NEGATIVE) Test 06/16/18 22:13 06/17/18 04:10 06/17/18 08:40 Glucose (Fingerstick) 162 mg/dL (70-99) 220 mg/dL (70-99) White Blood Count 37.5 x10^3/uL (4.0-11.0) Red Blood Count 2.22 x10^6/uL (3.50-5.40) Hemoglobin 7.0 g/dL (12.0-15.5) Hematocrit 22.6 % (36.0-47.0) Mean Corpuscular Volume 102 fL (79-100) Mean Corpuscular Hemoglobin 32 pg (25-35) Mean Corpuscular Hemoglobin Concent 31 g/dL (31-37) Red Cell Distribution Width 17.5 % (11.5-14.5) Platelet Count 277 x10^3/uL (140-400) Neutrophils (%) (Auto) 96 % (31-73) Lymphocytes (%) (Auto) 2 % (24-48) Monocytes (%) (Auto) 3 % (0-9) Eosinophils (%) (Auto) 0 % (0-3) Basophils (%) (Auto) 0 % (0-3) Neutrophils # (Auto) 35.8 x10^3uL (1.8-7.7) Lymphocytes # (Auto) 0.7 x10^3/uL (1.0-4.8) Monocytes # (Auto) 1.0 x10^3/uL (0.0-1.1) Eosinophils # (Auto) 0.0 x10^3/uL (0.0-0.7) Basophils # (Auto) 0.0 x10^3/uL (0.0-0.2) Sodium Level 139 mmol/L (136-145) Potassium Level 5.1 mmol/L (3.5-5.1) Chloride Level 98 mmol/L (98-107) Carbon Dioxide Level 24 mmol/L (21-32) Anion Gap 17 (6-14) Blood Urea Nitrogen 67 mg/dL (7-20) Creatinine 6.0 mg/dL (0.6-1.0) Estimated GFR (Cockcroft-Gault) 7.4 Glucose Level 194 mg/dL (70-99) Calcium Level 9.2 mg/dL (8.5-10.1) Laboratory Tests Test 06/16/18 14:00 06/16/18 14:40 06/16/18 17:36 06/16/18 19:15 White Blood Count 26.4 x10^3/uL (4.0-11.0) Red Blood Count 2.44 x10^6/uL (3.50-5.40) Hemoglobin 7.9 g/dL (12.0-15.5) Hematocrit 24.6 % (36.0-47.0) Mean Corpuscular Volume 101 fL (79-100) Mean Corpuscular Hemoglobin 32 pg (25-35) Mean Corpuscular Hemoglobin Concent 32 g/dL (31-37) Red Cell Distribution Width 17.1 % (11.5-14.5) Platelet Count 316 x10^3/uL (140-400) Neutrophils (%) (Auto) 97 % (31-73) Lymphocytes (%) (Auto) 1 % (24-48) Monocytes (%) (Auto) 2 % (0-9) Eosinophils (%) (Auto) 0 % (0-3) Basophils (%) (Auto) 0 % (0-3) Neutrophils # (Auto) 25.5 x10^3uL (1.8-7.7) Lymphocytes # (Auto) 0.2 x10^3/uL (1.0-4.8) Monocytes # (Auto) 0.6 x10^3/uL (0.0-1.1) Eosinophils # (Auto) 0.0 x10^3/uL (0.0-0.7) Basophils # (Auto) 0.1 x10^3/uL (0.0-0.2) Segmented Neutrophils % 70 % (35-66) Band Neutrophils % 21 % (0-9) Lymphocytes % 3 % (24-48) Monocytes % 5 % (0-10) Metamyelocytes % 1 % (0-0) Smudge Cells Present Toxic Vacuolation Slight Platelet Estimate Adequate (ADEQUATE) Anisocytosis Slight Prothrombin Time 15.4 SEC (11.7-14.0) Prothromb Time International Ratio 1.3 (0.8-1.1) Activated Partial Thromboplast Time 34 SEC (24-38) Lactic Acid Level 1.3 mmol/L (0.4-2.0) 1.7 mmol/L (0.4-2.0) O2 Saturation 96 % (92-99) Arterial Blood pH 7.46 (7.35-7.45) Arterial Blood pCO2 at Patient Temp 36 mmHg (35-46) Arterial Blood pO2 at Patient Temp 87 mmHg (75-108) Arterial Blood HCO3 25 mmol/L (21-28) Arterial Blood Base Excess 2 mmol/L (-3-3) FiO2 28 Sodium Level 138 mmol/L (136-145) Potassium Level 4.7 mmol/L (3.5-5.1) Chloride Level 97 mmol/L (98-107) Carbon Dioxide Level 27 mmol/L (21-32) Anion Gap 14 (6-14) Blood Urea Nitrogen 58 mg/dL (7-20) Creatinine 5.3 mg/dL (0.6-1.0) Estimated GFR (Cockcroft-Gault) 8.5 BUN/Creatinine Ratio 11 (6-20) Glucose Level 132 mg/dL (70-99) Calcium Level 9.0 mg/dL (8.5-10.1) Magnesium Level 1.9 mg/dL (1.8-2.4) Total Bilirubin 0.9 mg/dL (0.2-1.0) Aspartate Amino Transf (AST/SGOT) 12 U/L (15-37) Alanine Aminotransferase (ALT/SGPT) 9 U/L (14-59) Alkaline Phosphatase 114 U/L (46-116) Ammonia 24 mcmol/L (11-34) Troponin I Quantitative 0.158 ng/mL (0.000-0.055) DU-Omi-R-Type Natriuretic Peptide > 77404 pg/mL (0-124) Total Protein 6.8 g/dL (6.4-8.2) Albumin 2.6 g/dL (3.4-5.0) Albumin/Globulin Ratio 0.6 (1.0-1.7) Influenza Type A Antigen Negative (NEGATIVE) Influenza Type B Antigen Negative (NEGATIVE) Test 06/16/18 22:13 06/17/18 04:10 06/17/18 08:40 Glucose (Fingerstick) 162 mg/dL (70-99) 220 mg/dL (70-99) White Blood Count 37.5 x10^3/uL (4.0-11.0) Red Blood Count 2.22 x10^6/uL (3.50-5.40) Hemoglobin 7.0 g/dL (12.0-15.5) Hematocrit 22.6 % (36.0-47.0) Mean Corpuscular Volume 102 fL (79-100) Mean Corpuscular Hemoglobin 32 pg (25-35) Mean Corpuscular Hemoglobin Concent 31 g/dL (31-37) Red Cell Distribution Width 17.5 % (11.5-14.5) Platelet Count 277 x10^3/uL (140-400) Neutrophils (%) (Auto) 96 % (31-73) Lymphocytes (%) (Auto) 2 % (24-48) Monocytes (%) (Auto) 3 % (0-9) Eosinophils (%) (Auto) 0 % (0-3) Basophils (%) (Auto) 0 % (0-3) Neutrophils # (Auto) 35.8 x10^3uL (1.8-7.7) Lymphocytes # (Auto) 0.7 x10^3/uL (1.0-4.8) Monocytes # (Auto) 1.0 x10^3/uL (0.0-1.1) Eosinophils # (Auto) 0.0 x10^3/uL (0.0-0.7) Basophils # (Auto) 0.0 x10^3/uL (0.0-0.2) Sodium Level 139 mmol/L (136-145) Potassium Level 5.1 mmol/L (3.5-5.1) Chloride Level 98 mmol/L (98-107) Carbon Dioxide Level 24 mmol/L (21-32) Anion Gap 17 (6-14) Blood Urea Nitrogen 67 mg/dL (7-20) Creatinine 6.0 mg/dL (0.6-1.0) Estimated GFR (Cockcroft-Gault) 7.4 Glucose Level 194 mg/dL (70-99) Calcium Level 9.2 mg/dL (8.5-10.1) Review All relevant outside records, renal labs, imaging studies, telemetry/EKG's were reviewed. Images Images CxR-- 1. Chronic findings as described above. 2. No acute cardiopulmonary abnormality is detected Rt UE US-- 1. Patent AV fistula/graft in the right upper arm. 2. Avascular, heterogeneous hypoechoic mass in the right upper arm most compatible with a hematoma. 3. High peak systolic velocity in the proximal right subclavian artery raising the possibility of some degree of stenosis at its origin. HEMANT SCHAEFER MD Jun 17, 2018 09:19
--- NOTE | 2018-06-17 09:34 | PDOC2 ---
HONG OKEEFE 06/17/18 0934: CONSULT Date of Consult Date of Consult DATE: 06/17/18 TIME: 09:11 History of Present Illness Reason for Visit: The pleasant 52-year-old female w/ PMHx COPD, afib, CAD, CHF, HTN, anxiety/ depression, OA, PUD, IBS, PVD s/p LLE BKA, ESRD on HD, h/o vitreous hemorrhage who is well-known to our service. She's been treated here for sepsis, altered mental status, anemia, leukocytosis. We are asked to see this patient regarding her right lower leg wounds. We have performed a right femoropopliteal bypass on this patient January 06, 2018, we also performed a previous muscle flap, with most recent right groin debridement on 02/01/18, this has since been skin grafted and healed. She also presented with a large right upper extremity infiltration from previous dialysis. Elinor present for about 3 weeks without complications. An ultrasound has been done on this and the graft is not involved. Her most recent successful dialysis was on Thursday, she has had no problems with her access. She also presents with coccyx wounds and right lower sternotomy cellulitis. The patient is fairly drowsy this morning and is unable to gain much history from her. Patient presented with severe leukocytosis, and anemia with hemoglobin of 7 this morning. Past Medical History Cardiovascular: AFIB, CAD, CHF, HTN, IN, Hyperlipidemia, Other Pulmonary: Asthma, Bronchitis, COPD, Pneumonia, Other CENTRAL NERVOUS SYSTEM: Periperal neuropathy GI: Irritable bowel disease, Peptic Ulcer disease, Other Heme/Onc: Anemia NOS Hepatobiliary: No pertinent hx Psych: Anxiety, Depression Musculoskeletal: Osteoarthritis Rheumatologic: Fibromyalgia Infectious disease: Other Renal/: Chronic renal failure Endocrine: Diabetes Past Surgical History Past Surgical History: CABG, Cataract Removal, Hysterectomy, Other Family History Family History: Diabetes, Hypertension Social History 1 pack per day ALCOHOL: none Drugs: None Lives: with Family Current Problem List Problem List Problems Medical Problems: (1) End-stage renal disease on hemodialysis Status: Acute (2) Sepsis Status: Acute Current Medications Current Medications Current Medications Albuterol/ Ipratropium (Duoneb) 3 ml 1X ONCE NEB Last administered on at 14:38; Start 06/16/18 at 14:15; Stop 06/16/18 at 14:16; Status DC Methylprednisolone Sodium Succinate (SOLU-Medrol 125MG VIAL) 125 mg 1X ONCE IV Last administered on 06/16/18at 17:20; Start 06/16/18 at 16:00; Stop 06/16/18 at 16:01; Status DC Levofloxacin/ Dextrose 100 ml @ 100 mls/hr 1X ONCE IV Last administered on at 17:20; Start 06/16/18 at 16:45; Stop 06/16/18 at 17:44; Status DC Vancomycin HCl 250 ml @ 250 mls/hr 1X ONCE IV ; Start 06/16/18 at 16:45; Stop 06/16/18 at 17:44; Status UNV Vancomycin HCl 1.75 gm/Sodium Chloride 500 ml @ 250 mls/hr 1X ONCE IV Last administered on 06/16/18at 17:19; Start 06/16/18 at 17:45; Stop 06/16/18 at 19:44 ; Status DC Ondansetron HCl (Zofran) 4 mg PRN Q8HRS PRN IV NAUSEA/VOMITING; Start 06/16/18 at 17:15; Stop 06/17/18 at 17:14 Acetaminophen (Tylenol) 650 mg PRN Q4HRS PRN PO FEVER Last administered on 06/16at 18:21; Start 06/16/18 at 17:15; Stop 06/16/18 at 19:29; Status DC Hydromorphone HCl (Dilaudid) 0.5 mg PRN Q3HRS PRN IVP PAIN; Start 06/16/18 at 19:30 Hydromorphone HCl (Dilaudid) 1 mg PRN Q3HRS PRN IVP PAIN Last administered on at 19:37; Start 06/16/18 at 19:30 Acetaminophen/ Hydrocodone Bitart (Lortab 5/325) 1 tab PRN Q6HRS PRN PO PAIN; Start 06/16/18 at 19:30 Acetaminophen (Tylenol) 650 mg PRN Q6HRS PRN PO FEVER; Start 06/16/18 at 19:30 Insulin Human Lispro (HumaLOG) 0-5 UNITS TIDWMEALS SQ ; Start 06/17/18 at 08:00 Dextrose (Dextrose 50%-Water Syringe) 12.5 gm PRN Q15MIN PRN IV SEE COMMENTS; Start 06/16/18 at 19:30 Amiodarone HCl (Cordarone) 200 mg DAILY PO ; Start 06/17/18 at 09:00 Aspirin (Children'S Aspirin) 81 mg DAILYWBKFT PO Last administered on at 07:41; Start 06/17/18 at 08:00 Carbamazepine (TEGretol) 200 mg BID PO ; Start 06/17/18 at 09:00 Carvedilol (Coreg) 12.5 mg BIDWMEALS PO ; Start 06/17/18 at 08:00 Docusate Sodium (Colace) 100 mg PRN BID PRN PO CONSTIPATION; Start 06/16/18 at 23:30 Famotidine (Pepcid) 20 mg HS PO ; Start 06/17/18 at 21:00 Ferrous Sulfate (Feosol) 325 mg DAILY PO ; Start 06/17/18 at 09:00 Guaifenesin (Mucinex) 600 mg BID PO ; Start 06/17/18 at 09:00 Insulin Glargine (Lantus) 15 units PRN QHS PRN SQ diabetes; Start 06/16/18 at 23:30 Insulin Human Lispro (HumaLOG) 5 units PRN TID PRN SQ Diabetes; Start 06/16/18 at 23:30 Albuterol/ Ipratropium (Duoneb) 3 ml PRN QID PRN NEB shortness of breath; Start 06/16/18 at 23:30 Prochlorperazine Maleate (Compazine) 10 mg PRN Q6HRS PRN PO NAUSEA/VOMITING; Start 06/16/18 at 23:30 Sevelamer Carbonate (Renvela) 1,600 mg TIDWMEALS PO Last administered on at 07:41; Start 06/17/18 at 08:00 Ticagrelor (Brilinta) 90 mg BID PO ; Start 06/17/18 at 09:00 Tramadol HCl (Ultram) 50 mg PRN Q4HRS PRN PO HEADACHE; Start 06/16/18 at 23:30 Atorvastatin Calcium (Lipitor) 80 mg HS PO ; Start 06/17/18 at 21:00 Calcitriol (Rocaltrol) 0.25 mcg DAILY PO ; Start 06/17/18 at 09:00 Diltiazem HCl (Cardizem 24hr Cd) 120 mg DAILY PO ; Start 06/17/18 at 09:00 Diphenhydramine HCl (Benadryl) 50 mg PRN Q8HRS PRN PO ITCHING; Start 06/16/18 at 23:30 Erythromycin (E-Mycin) 250 mg BID PO ; Start 06/17/18 at 09:00 Hydralazine HCl (Apresoline) 10 mg PRN TID PRN PO HYPERTENSION, SEE COMMENTS; Start 06/16/18 at 23:30 Lidocaine (Lidoderm) 1 patch PRN DAILY PRN TP PAIN; Start 06/16/18 at 23:30 Zolpidem Tartrate (Ambien) 5 mg QHS PO ; Start 06/17/18 at 21:00 Niacin (Slo-Niacin) 250 mg BID PO ; Start 06/17/18 at 09:00 Polyethylene Glycol (miraLAX PACKET) 17 gm DAILY PO ; Start 06/17/18 at 09:00 Sodium Chloride (Saline Mist Nasal) 1 erich PRN BID PRN NS Congestion; Start at 23:30 Cefepime HCl (Maxipime) 1 gm Q24H IVP ; Start 06/17/18 at 22:00 Cefepime HCl (Maxipime) 1 gm ONCE ONCE IVP Last administered on 06/17/18at 00: 15; Start 06/17/18 at 00:00; Stop 06/17/18 at 00:01; Status DC Miscellaneous (Lidoderm Patch Removal) 1 ea QHS MC ; Start 06/17/18 at 21:00 Acetaminophen (Tylenol) 650 mg 1X PRN PRN PO PRE-TRANSFUSION; Start 06/17/18 at 05:15 Diphenhydramine HCl (Benadryl Oral Elixir) 12.5 mg 1X PRN PRN PO PRE- TRANSFUSION; Start 06/17/18 at 05:15 Diphenhydramine HCl (Benadryl) 25 mg PRN 1X PRN PO PRE-TRANSFUSION; Start 06/17 at 05:15 Daptomycin 360 mg/ Sodium Chloride 50 ml @ 100 mls/hr Q48H IV Last administered on 06/17/18at 08:46; Start 06/17/18 at 07:00 Micafungin Sodium 100 mg/Dextrose 100 ml @ 100 mls/hr Q24H IV Last administered on 06/17/18at 07:27; Start 06/17/18 at 06:30 Metronidazole (Flagyl) 500 mg Q8HRS PO Last administered on 06/17/18at 07:26; Start 06/17/18 at 06:30 Active Scripts Active Brilinta (Ticagrelor) 90 Mg Tablet 90 Mg PO BID 30 Days Reported Renvela (Sevelamer Carbonate) 800 Mg Tablet 2 Tab PO TID Melatonin 3 Mg Tablet 9 Mg PO QHS Lantus Solostar (Insulin Glargine,Hum.rec.anlog) 100 Unit/1 Ml Insuln.pen 15 Unit SQ QHS PRN Duoneb 0.5-3(2.5) Mg/3 Ml (Albuterol/Ipratropium) 3 Ml Ampul.neb 3 Ml NEB QID PRN Humalog (Insulin Lispro) 100 Unit/1 Ml Vial 100 Unit SQ TID Humalog (Insulin Lispro) 100 Unit/1 Ml Vial 5 Unit SQ TID PRN Guaifenesin 600 Mg Tablet.er 600 Mg PO BID [place] Saline (Sodium Chloride) 50 Ml Omar 1 Omar NS BID PRN Acetaminophen 500 Mg Tablet 650 Mg PO Q6HRS PRN Morphine Sulfate Er (Morphine Sulfate) 30 Mg Tablet.er 1 Tab PO BID Aspirin 81 Mg Tab.chew 1 Tab PO DAILY Calcitriol 0.25 Mcg Capsule 1 Cap PO DAILY Pepcid (Famotidine) 20 Mg Tablet 20 Mg PO HS Niacin 250 Mg Tablet 250 Mg PO BID Miralax (Polyethylene Glycol 3350) 17 Gm Powd.pack 1 Packet PO DAILY Hydralazine Hcl 10 Mg Tablet 1 Tab PO PRN TID PRN Oxycodone Hcl Immed.release (Oxycodone Hcl) 5 Mg Tablet 2 Tab PO PRN Q4HRS PRN Ferrous Sulfate 325 Mg Tablet 1 Tab PO DAILY Diphenhydramine Hcl 50 Mg Capsule 1 Cap PO PRN Q8HRS PRN Prochlorperazine Maleate 10 Mg Tablet 1 Tab PO PRN Q6HRS PRN Lidocaine 1 Each Adh..patch 1 Each TP PRN DAILY PRN Tegretol (Carbamazepine) 200 Mg Tablet 1 Tab PO BID Tramadol Hcl 50 Mg Tablet 50 Mg PO Q4HRS PRN Carvedilol (Carvedilol) 3.125 Mg Tablet 12.5 Mg PO BID Erythromycin (Erythromycin Base) 250 Mg Capsule.dr 250 Mg PO BID Cardizem Cd (Diltiazem Hcl) 180 Mg Cap.er.24h 120 Mg PO DAILY Amiodarone Hcl 200 Mg Tablet 1 Tab PO DAILY Lipitor (Atorvastatin Calcium) 80 Mg Tablet 80 Mg PO HS Docusate Sodium 100 Mg Capsule 1 Cap PO PRN PRN Allergies Allergies: Coded Allergies: Sulfa (Sulfonamide Antibiotics) (Verified Allergy, Severe, Anaphylaxis, ) meropenem (Verified Allergy, Intermediate, Rash, 03/10/18) Tolerates ancef piperacillin (Verified Allergy, Intermediate, Rash, 03/10/18) Tolerates ancef strawberry (Verified Allergy, Intermediate, 03/10/18) tazobactam (Verified Allergy, Intermediate, 03/10/18) cefazolin (Verified Adverse Reaction, Intermediate, Itching, 03/10/18) Causes Vomiting fentanyl (Verified Adverse Reaction, Intermediate, Nausea and Vomiting, ) Vomiting ROS Review of System Able to obtain as patient to drowsy. Physical Exam Physical Exam Gen.: Vital signs stable, afebrile. Patient drowsy corresponds with stimulation. Minimally cooperative. HEENT: Atraumatic Lungs: Normal air movement Heart: Regular rate Abdomen: Soft, No tenderness Extremities: No cyanosis, Other (strong palpable proximal bypass pulse. Strong triphasic and biphasic Doppler signals to distal bypass, right DP and PT. Foot is warm. Unable to assess motor function and incision due to patient's drowsiness. Her posterior right calf has superficial beginning stages or pressure ulcer. Her right arm AV graft has strong thrill and bruit proximally and distally. Right upper medial arm has large mass of mottled ecchymosis, this is mostly firm on palpation and nonpulsatile.) Skin: Other (patient with severe right lower extremity skin tautness, dryness with scattered superficial scabbing, none of which appear to penetrate beyond epidermis. She has a dark thickened area of skin midfoot dorsal side. She has moderate right leg swelling. Skin is flaky. Right groin site is healed appropriately. No signs of infection the right groin. ) Vitals VITALS Vital Signs Date Time Temp Pulse Resp B/P (MAP) Pulse Ox O2 Delivery O2 Flow Rate FiO2 2/21/19 08:00 Room Air 06/17/18 08:00 99.0 79 11 110/55 (73) 97 99.0 06/16/18 19:45 2.0 Labs Labs Laboratory Tests Test 06/16/18 14:00 06/16/18 14:40 06/16/18 17:36 06/16/18 19:15 White Blood Count 26.4 x10^3/uL (4.0-11.0) Red Blood Count 2.44 x10^6/uL (3.50-5.40) Hemoglobin 7.9 g/dL (12.0-15.5) Hematocrit 24.6 % (36.0-47.0) Mean Corpuscular Volume 101 fL (79-100) Mean Corpuscular Hemoglobin 32 pg (25-35) Mean Corpuscular Hemoglobin Concent 32 g/dL (31-37) Red Cell Distribution Width 17.1 % (11.5-14.5) Platelet Count 316 x10^3/uL (140-400) Neutrophils (%) (Auto) 97 % (31-73) Lymphocytes (%) (Auto) 1 % (24-48) Monocytes (%) (Auto) 2 % (0-9) Eosinophils (%) (Auto) 0 % (0-3) Basophils (%) (Auto) 0 % (0-3) Neutrophils # (Auto) 25.5 x10^3uL (1.8-7.7) Lymphocytes # (Auto) 0.2 x10^3/uL (1.0-4.8) Monocytes # (Auto) 0.6 x10^3/uL (0.0-1.1) Eosinophils # (Auto) 0.0 x10^3/uL (0.0-0.7) Basophils # (Auto) 0.1 x10^3/uL (0.0-0.2) Segmented Neutrophils % 70 % (35-66) Band Neutrophils % 21 % (0-9) Lymphocytes % 3 % (24-48) Monocytes % 5 % (0-10) Metamyelocytes % 1 % (0-0) Smudge Cells Present Toxic Vacuolation Slight Platelet Estimate Adequate (ADEQUATE) Anisocytosis Slight Prothrombin Time 15.4 SEC (11.7-14.0) Prothromb Time International Ratio 1.3 (0.8-1.1) Activated Partial Thromboplast Time 34 SEC (24-38) Lactic Acid Level 1.3 mmol/L (0.4-2.0) 1.7 mmol/L (0.4-2.0) O2 Saturation 96 % (92-99) Arterial Blood pH 7.46 (7.35-7.45) Arterial Blood pCO2 at Patient Temp 36 mmHg (35-46) Arterial Blood pO2 at Patient Temp 87 mmHg (75-108) Arterial Blood HCO3 25 mmol/L (21-28) Arterial Blood Base Excess 2 mmol/L (-3-3) FiO2 28 Sodium Level 138 mmol/L (136-145) Potassium Level 4.7 mmol/L (3.5-5.1) Chloride Level 97 mmol/L (98-107) Carbon Dioxide Level 27 mmol/L (21-32) Anion Gap 14 (6-14) Blood Urea Nitrogen 58 mg/dL (7-20) Creatinine 5.3 mg/dL (0.6-1.0) Estimated GFR (Cockcroft-Gault) 8.5 BUN/Creatinine Ratio 11 (6-20) Glucose Level 132 mg/dL (70-99) Calcium Level 9.0 mg/dL (8.5-10.1) Magnesium Level 1.9 mg/dL (1.8-2.4) Total Bilirubin 0.9 mg/dL (0.2-1.0) Aspartate Amino Transf (AST/SGOT) 12 U/L (15-37) Alanine Aminotransferase (ALT/SGPT) 9 U/L (14-59) Alkaline Phosphatase 114 U/L (46-116) Ammonia 24 mcmol/L (11-34) Troponin I Quantitative 0.158 ng/mL (0.000-0.055) KK-Toa-X-Type Natriuretic Peptide > 67435 pg/mL (0-124) Total Protein 6.8 g/dL (6.4-8.2) Albumin 2.6 g/dL (3.4-5.0) Albumin/Globulin Ratio 0.6 (1.0-1.7) Influenza Type A Antigen Negative (NEGATIVE) Influenza Type B Antigen Negative (NEGATIVE) Test 06/16/18 22:13 06/17/18 04:10 06/17/18 08:40 Glucose (Fingerstick) 162 mg/dL (70-99) 220 mg/dL (70-99) White Blood Count 37.5 x10^3/uL (4.0-11.0) Red Blood Count 2.22 x10^6/uL (3.50-5.40) Hemoglobin 7.0 g/dL (12.0-15.5) Hematocrit 22.6 % (36.0-47.0) Mean Corpuscular Volume 102 fL (79-100) Mean Corpuscular Hemoglobin 32 pg (25-35) Mean Corpuscular Hemoglobin Concent 31 g/dL (31-37) Red Cell Distribution Width 17.5 % (11.5-14.5) Platelet Count 277 x10^3/uL (140-400) Neutrophils (%) (Auto) 96 % (31-73) Lymphocytes (%) (Auto) 2 % (24-48) Monocytes (%) (Auto) 3 % (0-9) Eosinophils (%) (Auto) 0 % (0-3) Basophils (%) (Auto) 0 % (0-3) Neutrophils # (Auto) 35.8 x10^3uL (1.8-7.7) Lymphocytes # (Auto) 0.7 x10^3/uL (1.0-4.8) Monocytes # (Auto) 1.0 x10^3/uL (0.0-1.1) Eosinophils # (Auto) 0.0 x10^3/uL (0.0-0.7) Basophils # (Auto) 0.0 x10^3/uL (0.0-0.2) Sodium Level 139 mmol/L (136-145) Potassium Level 5.1 mmol/L (3.5-5.1) Chloride Level 98 mmol/L (98-107) Carbon Dioxide Level 24 mmol/L (21-32) Anion Gap 17 (6-14) Blood Urea Nitrogen 67 mg/dL (7-20) Creatinine 6.0 mg/dL (0.6-1.0) Estimated GFR (Cockcroft-Gault) 7.4 Glucose Level 194 mg/dL (70-99) Calcium Level 9.2 mg/dL (8.5-10.1) Laboratory Tests Test 06/16/18 14:00 06/16/18 14:40 06/16/18 17:36 06/16/18 19:15 White Blood Count 26.4 x10^3/uL (4.0-11.0) Red Blood Count 2.44 x10^6/uL (3.50-5.40) Hemoglobin 7.9 g/dL (12.0-15.5) Hematocrit 24.6 % (36.0-47.0) Mean Corpuscular Volume 101 fL (79-100) Mean Corpuscular Hemoglobin 32 pg (25-35) Mean Corpuscular Hemoglobin Concent 32 g/dL (31-37) Red Cell Distribution Width 17.1 % (11.5-14.5) Platelet Count 316 x10^3/uL (140-400) Neutrophils (%) (Auto) 97 % (31-73) Lymphocytes (%) (Auto) 1 % (24-48) Monocytes (%) (Auto) 2 % (0-9) Eosinophils (%) (Auto) 0 % (0-3) Basophils (%) (Auto) 0 % (0-3) Neutrophils # (Auto) 25.5 x10^3uL (1.8-7.7) Lymphocytes # (Auto) 0.2 x10^3/uL (1.0-4.8) Monocytes # (Auto) 0.6 x10^3/uL (0.0-1.1) Eosinophils # (Auto) 0.0 x10^3/uL (0.0-0.7) Basophils # (Auto) 0.1 x10^3/uL (0.0-0.2) Segmented Neutrophils % 70 % (35-66) Band Neutrophils % 21 % (0-9) Lymphocytes % 3 % (24-48) Monocytes % 5 % (0-10) Metamyelocytes % 1 % (0-0) Smudge Cells Present Toxic Vacuolation Slight Platelet Estimate Adequate (ADEQUATE) Anisocytosis Slight Prothrombin Time 15.4 SEC (11.7-14.0) Prothromb Time International Ratio 1.3 (0.8-1.1) Activated Partial Thromboplast Time 34 SEC (24-38) Lactic Acid Level 1.3 mmol/L (0.4-2.0) 1.7 mmol/L (0.4-2.0) O2 Saturation 96 % (92-99) Arterial Blood pH 7.46 (7.35-7.45) Arterial Blood pCO2 at Patient Temp 36 mmHg (35-46) Arterial Blood pO2 at Patient Temp 87 mmHg (75-108) Arterial Blood HCO3 25 mmol/L (21-28) Arterial Blood Base Excess 2 mmol/L (-3-3) FiO2 28 Sodium Level 138 mmol/L (136-145) Potassium Level 4.7 mmol/L (3.5-5.1) Chloride Level 97 mmol/L (98-107) Carbon Dioxide Level 27 mmol/L (21-32) Anion Gap 14 (6-14) Blood Urea Nitrogen 58 mg/dL (7-20) Creatinine 5.3 mg/dL (0.6-1.0) Estimated GFR (Cockcroft-Gault) 8.5 BUN/Creatinine Ratio 11 (6-20) Glucose Level 132 mg/dL (70-99) Calcium Level 9.0 mg/dL (8.5-10.1) Magnesium Level 1.9 mg/dL (1.8-2.4) Total Bilirubin 0.9 mg/dL (0.2-1.0) Aspartate Amino Transf (AST/SGOT) 12 U/L (15-37) Alanine Aminotransferase (ALT/SGPT) 9 U/L (14-59) Alkaline Phosphatase 114 U/L (46-116) Ammonia 24 mcmol/L (11-34) Troponin I Quantitative 0.158 ng/mL (0.000-0.055) EZ-Iey-M-Type Natriuretic Peptide > 85937 pg/mL (0-124) Total Protein 6.8 g/dL (6.4-8.2) Albumin 2.6 g/dL (3.4-5.0) Albumin/Globulin Ratio 0.6 (1.0-1.7) Influenza Type A Antigen Negative (NEGATIVE) Influenza Type B Antigen Negative (NEGATIVE) Test 06/16/18 22:13 06/17/18 04:10 06/17/18 08:40 Glucose (Fingerstick) 162 mg/dL (70-99) 220 mg/dL (70-99) White Blood Count 37.5 x10^3/uL (4.0-11.0) Red Blood Count 2.22 x10^6/uL (3.50-5.40) Hemoglobin 7.0 g/dL (12.0-15.5) Hematocrit 22.6 % (36.0-47.0) Mean Corpuscular Volume 102 fL (79-100) Mean Corpuscular Hemoglobin 32 pg (25-35) Mean Corpuscular Hemoglobin Concent 31 g/dL (31-37) Red Cell Distribution Width 17.5 % (11.5-14.5) Platelet Count 277 x10^3/uL (140-400) Neutrophils (%) (Auto) 96 % (31-73) Lymphocytes (%) (Auto) 2 % (24-48) Monocytes (%) (Auto) 3 % (0-9) Eosinophils (%) (Auto) 0 % (0-3) Basophils (%) (Auto) 0 % (0-3) Neutrophils # (Auto) 35.8 x10^3uL (1.8-7.7) Lymphocytes # (Auto) 0.7 x10^3/uL (1.0-4.8) Monocytes # (Auto) 1.0 x10^3/uL (0.0-1.1) Eosinophils # (Auto) 0.0 x10^3/uL (0.0-0.7) Basophils # (Auto) 0.0 x10^3/uL (0.0-0.2) Sodium Level 139 mmol/L (136-145) Potassium Level 5.1 mmol/L (3.5-5.1) Chloride Level 98 mmol/L (98-107) Carbon Dioxide Level 24 mmol/L (21-32) Anion Gap 17 (6-14) Blood Urea Nitrogen 67 mg/dL (7-20) Creatinine 6.0 mg/dL (0.6-1.0) Estimated GFR (Cockcroft-Gault) 7.4 Glucose Level 194 mg/dL (70-99) Calcium Level 9.2 mg/dL (8.5-10.1) Images Images RUE US IMPRESSION: 1. Patent AV fistula/graft in the right upper arm. 2. Avascular, heterogeneous hypoechoic mass in the right upper arm most compatible with a hematoma. 3. High peak systolic velocity in the proximal right subclavian artery raising the possibility of some degree of stenosis at its origin. Assessment/Plan Assessment/Plan Patient is well-known to us, she is status post right femoropopliteal bypass, Sartorius muscle flap, right groin debridement, right toe amputations, left BKA. She is currently being treated for sepsis, altered mental status and anemia. She has a patent right leg bypass, with strong bypass pulse and strong distal Doppler signals and warm foot, suggesting adequate circulation for healing. She has scattered superficial wounds around her right leg, none of which appeared to be necrotic, or at a concerning depth. Her right leg wounds do not appear to be a localized source of infection, however her right leg diffusely appears cellulitic. Her right Groin wound has healed appropriately, also does not appear to be source of infection. The patient has a functioning patent right AV graft, with a large area of infiltration versus hematoma that has been present for 3 weeks in her upper medial arm. This can continue to be monitored. Graft site is without signs of infection. The patient also has coccyx wounds and a peritoneal dialysis catheter, that may require further evaluation for source of infection. I did discuss with Dr. Daly. We recommend to continue wound care to right lower leg, keep pressure off of posterior right calf pressure ulcer. No surgical intervention needed at this time. Continue Aspirin and Brilinta. I discussed her case with Dr. Reina. We will have the patient follow-up with us in our office in 2 weeks. Thank you for consult, please do not hesitate to contact us with further questions. MAGDA ARIAS II, MD 06/19/18 1402: CONSULT Assessment/Plan Assessment/Plan Pt seen and examined. She is status post revascularization right leg, right toe amputations, left BKA. Her wounds are stable. She has a nicely palpable graft pulse medial right leg. We will continue to follow as needed. HONG OKEEFE Jun 17, 2018 09:34 MAGDA ARIAS II, MD Jun 19, 2018 14:02
--- NOTE | 2018-06-17 09:41 | CONS ---
DATE OF CONSULTATION: 06/17/2018 ROOM: ICU 7. REQUESTING PHYSICIAN: Dr. Yadav. REASON FOR CONSULTATION: Sepsis. HISTORY OF PRESENT ILLNESS: The patient is a 52-year-old female with history of chronic kidney disease who has been staying at [facility]. She has chronic kidney disease and has been undergoing hemodialysis, although she has a peritoneal dialysis catheter. She states she last underwent hemodialysis on the . She has a history of distant MRSA, VRE and C. diff as well as Klebsiella in multiple wounds. She states yesterday after her dialysis, she had sudden onset of fevers, chills, nausea and apparently developed a mental status change along with some shortness of air. EMS was called. She had an O2 sat of 80% when EMS arrived. She was placed on 3 liters via nonrebreather and they changed her to 6 liters of oxygen, her O2 increased to 97%. On arrival, her temperature was 98.8 last evening, her temperature increased to 102.6 axillary, blood pressure dropped down to 81/44. Initially on arrival, she had a white count of 26.4, hemoglobin of 7.9, with 21% bands. She was given a dose of vancomycin, levofloxacin and cefepime. Additionally, she received a dose of Solu-Medrol. She has been admitted to Intensive Care Unit. Currently, she is sitting upright in bed. She states that she generally hurts all over. She denies any sinus complications. No shortness of air or cough currently. Denies any abdominal pain. No cramps or diarrhea. She is noted to have some wounds on her buttock areas. States that these have developed over several week period of time. She denies any rashes or itches. PAST MEDICAL HISTORY: Positive for previous wound with MSSA, Klebsiella resistant to ampicillin. History of C. diff. She has a history of multiple wounds including right groin. She has a history of Citrobacter VRE. She has a chronic kidney disease, on dialysis. MSSA bacteremia, left calcaneal osteomyelitis, diabetes, coronary artery disease, hypertension, hyperlipidemia, gastroparesis, COPD, asthma, fibromyalgia. PAST SURGICAL HISTORY: Positive for coronary artery bypass grafting, hysterectomy, left BKA, right third and second toe amputations, right upper extremity fistula placement and PD catheter placements. Right groin wound debridement with a skin graft, history of right lower extremity bypass grafting, history of diabetic retinopathy, history of cataract removals. REVIEW OF SYSTEMS: Otherwise negative except for mentioned above. ALLERGIES: LISTED SULFA, CEFAZOLIN, WHICH CAUSED SOME NAUSEA. MEROPENEM, ZOSYN, STRAWBERRY. She has tolerated cefepime and cefpodoxime. SOCIAL HISTORY: She is a resident now at [facility]. No recent tobacco or alcohol. FAMILY HISTORY: Noncontributory. CURRENT MEDICATIONS: She received levofloxacin x 1 on the , vancomycin x 1 on the . He is on amiodarone, aspirin, Lipitor, Calcitriol, Tegretol, Coreg, cefepime, diltiazem, Colace, Pepcid, hydralazine, Dilaudid, insulin, Solu-Medrol x 1, DuoNebs, niacin, Brilinta, tramadol, Ambien. Other meds are available and reviewed in the chart. PHYSICAL EXAMINATION: VITAL SIGNS: T-max was 102.6, currently 98.9. Pulse 78, respirations 18, blood pressure 127/55, satting 98% on room air. CONSTITUTIONAL: She is alert. She appears fatigued. She is in no acute distress. She has normal conjunctivae. Oral cavity, pharynx was clear. NECK: Supple, no JVD. LUNGS: Decreased in the bases. HEART: S1, S2. 1/6 murmur. ABDOMEN: Soft, nontender, no guarding or rebound. PD catheter is in place. EXTREMITIES: Without clubbing, cyanosis. Her right foot has chronic edema and some chronic venous changes with some dry areas. Her right groin area is without signs of complications. Right leg has a dry area of wound. SKIN: Without signs of generalized rash. Her buttock area has wounds on each buttock with slough on the left side. PSYCHIATRIC: Affect is flat. NEUROLOGIC: She responded to questions. INTRAVENOUS: She has a peripheral in her left upper extremity. Her right upper extremity fistula has a questionable hematoma associated with it. LABORATORY DATA: On arrival, white count 26.4, today 37.5, hemoglobin 7, platelets of 277, neutrophils are 96. Creatinine is 6, glucose 194, AST was 12, ALT 9. ProBNP was greater than 35,000 on arrival. Chest x-ray, chronic findings, no acute pulmonary abnormality detected. ASSESSMENT: 1. Sepsis present on arrival, 06/16/2018. She has no respiratory symptoms currently. Her BNP was elevated. Influenza screen was negative. 2. Fever. 3. Antibiotic allergies. 4. Leukocytosis, now status post Solu-Medrol. 5. Multiple wounds. She was too uncomfortable to go out this morning. Pictures were reviewed. 6. Anemia. 7. Encephalopathy, improving. 8. Chronic kidney disease, on peritoneal and hemodialysis. 9. Questionable right upper extremity hematoma above the fistula. RECOMMENDATIONS: We will dose daptomycin given her history of VRE in the past, questionable MRSA. Also add Flagyl for anaerobic coverage, micafungin for antifungal. We will continue the cefepime. She did receive levofloxacin x 1 on the . Follow up labs, cultures, consult General Surgery for wound eval, questionable need for PV cath. Await vascular and renal followup. I spent 35 minutes of critical care time. Previous records and [facility] records were reviewed. This was discussed with nursing. Thank you for allowing me to participate in the patient's care. If you have any questions, please do not hesitate to contact me. ALBERTO NAVA MD DR: RELL/guillermo JOB#: [id number] / [id number]
[2018-06-17] MEDS: carBAMazepine 200 MG TABLET PO SCH ×2 (09:49→22:59)
[2018-06-17] MEDS: NIACIN ER 250 MG TABLET.ER PO SCH ×2 (09:49→22:59)
[2018-06-17] MEDS: FERROUS SULFATE 325 MG TABLET. PO SCH (09:49)
[2018-06-17] MEDS: TICAGRELOR 90 MG TABLET. PO SCH ×2 (09:50→22:58)
[2018-06-17] MEDS: CALCITRIOL 0.25 MCG CAPSULE. PO SCH (09:50)
[2018-06-17] MEDS: AMIODARONE HCL 200 MG TABLET. PO SCH (09:51)
[2018-06-17] MEDS: ERYTHROMYCIN BASE 250 MG TABLET PO SCH ×2 (09:51→22:59)
[2018-06-17] MEDS: POLYETHYLENE GLYCOL 3350 17 GM PACKET. PO SCH (09:52)
[2018-06-17] MEDS: oxyCODONE ER 10 MG TAB.ER.12H PO SCH ×2 (09:52→22:59)
--- NOTE | 2018-06-17 11:38 | NUR ---
Functional screen complete. Spoke with RN who feels that pt would benefit from PT/OT assessment. Please write pt?ot eval and treat orders if you agree. Addendum: 06/17/18 at 1139 by FREEMAN PAUL PT Amended: Links added.
--- NOTE | 2018-06-17 15:26 | NUR ---
SS following for discharge planning. SS received notification that pt was from [facility] in [place]. SS contacted [facility] in [place], ; fax [phone], to verify pt's previous placement. [facility] verified that pt was nursing home and rehabilitation resident from there facility and was able to return when medically stable for discharge. SS will continue to follow for discharge planning.
--- NOTE | 2018-06-17 15:42 | NUR ---
Wound care: Patient seen per wound care consult regarding multiple wounds. See wound assessment. Patient is well known to us from the [facility]. Patient has unstageable pressure ulcer to bilateral buttocks/coccyx, a DTI to left BKA, a stage 2 to the right heel, an abrasion to the right anterior leg. All the wounds cleansed, assessed, and if needed measured and photographed. Recommendations for medi-honey, Xeroform gauze and Aquacel foams to coccyx/bilateral buttocks, to the BKA and right heel skin prep and foams, and to the right anterior leg Xeroform and Telfa. Dressings applied and patient tolerated well. Patient in moderate amount of pain with pressure ulcers. Dressing change instructions left in room. Patient repositioned. Bed lowered and call light in reach. wound care will follow patient regarding wound care.
--- NOTE | 2018-06-17 15:43 | PDOC ---
PROGRESS NOTES Chief Complaint Chief Complaint Shortness of breath - with Hypoxia - likely CHF exacerbation plus COPD exacerbation RUE hematoma - could be AV fistula infiltration vs pseudoaneurysm Right lower extremity swelling with skin breakdown - goes back to December 15, 2017, but this is much worse, will treat as cellulitis. Despite her allergies listed she did tolerate cephalosporins previously, aConsult ID Severe sepsis - empiric antibiotics for her RLE cellulitis as above Recent Right groin sx wound infection s/p i and d 02/01 and 02/05 - vascular surgery consulted Recent right leg PAD s/p R fem to pop bypass h/o L BKA - stable CAD w/ hx CABG, EF 50% - cont meds Diabetic retinopathy with VITREOUS HEMORRHAGE s/p sx, fu with [facility] Apr 09 - stable Vitreous hemorrhage, left > RT sec to DM - stable End-stage renal disease, on dialysis via AV fistula here at home per pt has been on PD - consult nephrology A- fib - amiodarone therapy Gastroparesis - on Erythromycin Left retinal optic disc drusen, bl blurry vision Acute on chronic decubitus ulcer - will have wound care to see. Will consult Dr. Solorio Hepatomegaly - will monitor HTN - cont meds FEN - renal diet PPX - heparin FULL CODE History of Present Illness History of Present Illness Patient is a 52-year-old female with multiple medical comorbidities including peripheral vascular disease and she already has had a below-knee amputation. She seems to be more comfortable compared to admission. Patient complains are mostly pain management. She is requesting oxycodone since she gives a history of medication working better than other alternatives. Reassurance has been provided recruiting operations consultant recommendations greatly appreciated Vitals Vitals Vital Signs Date Time Temp Pulse Resp B/P (MAP) Pulse Ox O2 Delivery O2 Flow Rate FiO2 06/17/18 15:00 80 10 100/62 (75) 100 Room Air 06/17/18 12:00 99.1 99.1 06/16/18 19:45 2.0 Physical Exam Physical Exam General: Alert, Cooperative, mild distress HEENT: Atraumatic, PERRLA, EOMI, Mucous membr. moist/pink Lungs: Other (Wheezing bilaterally) Heart: irregularly irregular Abdomen: Normal bowel sounds, Soft, No tenderness, No hepatosplenomegaly, No masses Rectal Exam: not examined Extremities: Other (LLE BKA stump. RLE indurated, swollen, hot reddish with foul smelling discharge RUE with large hematoma) Skin: Other (LLE BKA stump. RLE indurated, swollen, hot reddish with foul smelling discharge RUE with large hematoma) Neuro: Normal speech, Strength at 5/5 X4 ext, Normal tone, Sensation intact, Cranial nerves 3-12 NL, Reflexes 2+ Psych/Mental Status: Other (Drowsy) General: Alert, Oriented X3, Cooperative, No acute distress Heart: Regular rate Lungs: Other Abdomen: Soft, No tenderness Extremities: Other (strong palpable proximal bypass pulse. Strong triphasic and biphasic Doppler signals to distal bypass, right DP and PT. Foot is warm. Unable to assess motor function and incision due to patient's drowsiness. Her posterior right calf has superficial beginning stages or pressure ulcer. Her right arm AV graft has strong thrill and bruit proximally and distally. Right upper medial arm has large mass of mottled ecchymosis, this is mostly firm on palpation and nonpulsatile.) Skin: Other (patient with severe right lower extremity skin tautness, dryness with scattered superficial scabbing, none of which appear to penetrate beyond epidermis. She has a dark thickened area of skin midfoot dorsal side. She has moderate right leg swelling. Skin is flaky. Right groin site is healed appropriately. No signs of infection the right groin. ) Labs LABS Laboratory Tests Test 06/16/18 17:36 06/16/18 19:15 06/16/18 22:13 06/17/18 04:10 Influenza Type A Antigen Negative (NEGATIVE) Influenza Type B Antigen Negative (NEGATIVE) Lactic Acid Level 1.7 mmol/L (0.4-2.0) Glucose (Fingerstick) 162 mg/dL (70-99) White Blood Count 37.5 x10^3/uL (4.0-11.0) Red Blood Count 2.22 x10^6/uL (3.50-5.40) Hemoglobin 7.0 g/dL (12.0-15.5) Hematocrit 22.6 % (36.0-47.0) Mean Corpuscular Volume 102 fL (79-100) Mean Corpuscular Hemoglobin 32 pg (25-35) Mean Corpuscular Hemoglobin Concent 31 g/dL (31-37) Red Cell Distribution Width 17.5 % (11.5-14.5) Platelet Count 277 x10^3/uL (140-400) Neutrophils (%) (Auto) 96 % (31-73) Lymphocytes (%) (Auto) 2 % (24-48) Monocytes (%) (Auto) 3 % (0-9) Eosinophils (%) (Auto) 0 % (0-3) Basophils (%) (Auto) 0 % (0-3) Neutrophils # (Auto) 35.8 x10^3uL (1.8-7.7) Lymphocytes # (Auto) 0.7 x10^3/uL (1.0-4.8) Monocytes # (Auto) 1.0 x10^3/uL (0.0-1.1) Eosinophils # (Auto) 0.0 x10^3/uL (0.0-0.7) Basophils # (Auto) 0.0 x10^3/uL (0.0-0.2) Sodium Level 139 mmol/L (136-145) Potassium Level 5.1 mmol/L (3.5-5.1) Chloride Level 98 mmol/L (98-107) Carbon Dioxide Level 24 mmol/L (21-32) Anion Gap 17 (6-14) Blood Urea Nitrogen 67 mg/dL (7-20) Creatinine 6.0 mg/dL (0.6-1.0) Estimated GFR (Cockcroft-Gault) 7.4 Glucose Level 194 mg/dL (70-99) Calcium Level 9.2 mg/dL (8.5-10.1) Test 06/17/18 08:40 06/17/18 12:17 Glucose (Fingerstick) 220 mg/dL (70-99) 255 mg/dL (70-99) Assessment and Plan Assessmemt and Plan Problems Medical Problems: (1) End-stage renal disease on hemodialysis Status: Acute (2) Sepsis Status: Acute Comment Review of Relevant I have reviewed the following items bert (where applicable) has been applied. Labs Laboratory Tests Test 06/16/18 14:00 06/16/18 14:40 06/16/18 17:36 06/16/18 19:15 White Blood Count 26.4 x10^3/uL (4.0-11.0) Red Blood Count 2.44 x10^6/uL (3.50-5.40) Hemoglobin 7.9 g/dL (12.0-15.5) Hematocrit 24.6 % (36.0-47.0) Mean Corpuscular Volume 101 fL (79-100) Mean Corpuscular Hemoglobin 32 pg (25-35) Mean Corpuscular Hemoglobin Concent 32 g/dL (31-37) Red Cell Distribution Width 17.1 % (11.5-14.5) Platelet Count 316 x10^3/uL (140-400) Neutrophils (%) (Auto) 97 % (31-73) Lymphocytes (%) (Auto) 1 % (24-48) Monocytes (%) (Auto) 2 % (0-9) Eosinophils (%) (Auto) 0 % (0-3) Basophils (%) (Auto) 0 % (0-3) Neutrophils # (Auto) 25.5 x10^3uL (1.8-7.7) Lymphocytes # (Auto) 0.2 x10^3/uL (1.0-4.8) Monocytes # (Auto) 0.6 x10^3/uL (0.0-1.1) Eosinophils # (Auto) 0.0 x10^3/uL (0.0-0.7) Basophils # (Auto) 0.1 x10^3/uL (0.0-0.2) Segmented Neutrophils % 70 % (35-66) Band Neutrophils % 21 % (0-9) Lymphocytes % 3 % (24-48) Monocytes % 5 % (0-10) Metamyelocytes % 1 % (0-0) Smudge Cells Present Toxic Vacuolation Slight Platelet Estimate Adequate (ADEQUATE) Anisocytosis Slight Prothrombin Time 15.4 SEC (11.7-14.0) Prothromb Time International Ratio 1.3 (0.8-1.1) Activated Partial Thromboplast Time 34 SEC (24-38) Lactic Acid Level 1.3 mmol/L (0.4-2.0) 1.7 mmol/L (0.4-2.0) O2 Saturation 96 % (92-99) Arterial Blood pH 7.46 (7.35-7.45) Arterial Blood pCO2 at Patient Temp 36 mmHg (35-46) Arterial Blood pO2 at Patient Temp 87 mmHg (75-108) Arterial Blood HCO3 25 mmol/L (21-28) Arterial Blood Base Excess 2 mmol/L (-3-3) FiO2 28 Sodium Level 138 mmol/L (136-145) Potassium Level 4.7 mmol/L (3.5-5.1) Chloride Level 97 mmol/L (98-107) Carbon Dioxide Level 27 mmol/L (21-32) Anion Gap 14 (6-14) Blood Urea Nitrogen 58 mg/dL (7-20) Creatinine 5.3 mg/dL (0.6-1.0) Estimated GFR (Cockcroft-Gault) 8.5 BUN/Creatinine Ratio 11 (6-20) Glucose Level 132 mg/dL (70-99) Calcium Level 9.0 mg/dL (8.5-10.1) Magnesium Level 1.9 mg/dL (1.8-2.4) Total Bilirubin 0.9 mg/dL (0.2-1.0) Aspartate Amino Transf (AST/SGOT) 12 U/L (15-37) Alanine Aminotransferase (ALT/SGPT) 9 U/L (14-59) Alkaline Phosphatase 114 U/L (46-116) Ammonia 24 mcmol/L (11-34) Troponin I Quantitative 0.158 ng/mL (0.000-0.055) QK-Ixj-I-Type Natriuretic Peptide > 96751 pg/mL (0-124) Total Protein 6.8 g/dL (6.4-8.2) Albumin 2.6 g/dL (3.4-5.0) Albumin/Globulin Ratio 0.6 (1.0-1.7) Influenza Type A Antigen Negative (NEGATIVE) Influenza Type B Antigen Negative (NEGATIVE) Test 06/16/18 22:13 06/17/18 04:10 06/17/18 08:40 06/17/18 12:17 Glucose (Fingerstick) 162 mg/dL (70-99) 220 mg/dL (70-99) 255 mg/dL (70-99) White Blood Count 37.5 x10^3/uL (4.0-11.0) Red Blood Count 2.22 x10^6/uL (3.50-5.40) Hemoglobin 7.0 g/dL (12.0-15.5) Hematocrit 22.6 % (36.0-47.0) Mean Corpuscular Volume 102 fL (79-100) Mean Corpuscular Hemoglobin 32 pg (25-35) Mean Corpuscular Hemoglobin Concent 31 g/dL (31-37) Red Cell Distribution Width 17.5 % (11.5-14.5) Platelet Count 277 x10^3/uL (140-400) Neutrophils (%) (Auto) 96 % (31-73) Lymphocytes (%) (Auto) 2 % (24-48) Monocytes (%) (Auto) 3 % (0-9) Eosinophils (%) (Auto) 0 % (0-3) Basophils (%) (Auto) 0 % (0-3) Neutrophils # (Auto) 35.8 x10^3uL (1.8-7.7) Lymphocytes # (Auto) 0.7 x10^3/uL (1.0-4.8) Monocytes # (Auto) 1.0 x10^3/uL (0.0-1.1) Eosinophils # (Auto) 0.0 x10^3/uL (0.0-0.7) Basophils # (Auto) 0.0 x10^3/uL (0.0-0.2) Sodium Level 139 mmol/L (136-145) Potassium Level 5.1 mmol/L (3.5-5.1) Chloride Level 98 mmol/L (98-107) Carbon Dioxide Level 24 mmol/L (21-32) Anion Gap 17 (6-14) Blood Urea Nitrogen 67 mg/dL (7-20) Creatinine 6.0 mg/dL (0.6-1.0) Estimated GFR (Cockcroft-Gault) 7.4 Glucose Level 194 mg/dL (70-99) Calcium Level 9.2 mg/dL (8.5-10.1) Laboratory Tests Test 06/16/18 17:36 06/16/18 19:15 06/16/18 22:13 06/17/18 04:10 Influenza Type A Antigen Negative (NEGATIVE) Influenza Type B Antigen Negative (NEGATIVE) Lactic Acid Level 1.7 mmol/L (0.4-2.0) Glucose (Fingerstick) 162 mg/dL (70-99) White Blood Count 37.5 x10^3/uL (4.0-11.0) Red Blood Count 2.22 x10^6/uL (3.50-5.40) Hemoglobin 7.0 g/dL (12.0-15.5) Hematocrit 22.6 % (36.0-47.0) Mean Corpuscular Volume 102 fL (79-100) Mean Corpuscular Hemoglobin 32 pg (25-35) Mean Corpuscular Hemoglobin Concent 31 g/dL (31-37) Red Cell Distribution Width 17.5 % (11.5-14.5) Platelet Count 277 x10^3/uL (140-400) Neutrophils (%) (Auto) 96 % (31-73) Lymphocytes (%) (Auto) 2 % (24-48) Monocytes (%) (Auto) 3 % (0-9) Eosinophils (%) (Auto) 0 % (0-3) Basophils (%) (Auto) 0 % (0-3) Neutrophils # (Auto) 35.8 x10^3uL (1.8-7.7) Lymphocytes # (Auto) 0.7 x10^3/uL (1.0-4.8) Monocytes # (Auto) 1.0 x10^3/uL (0.0-1.1) Eosinophils # (Auto) 0.0 x10^3/uL (0.0-0.7) Basophils # (Auto) 0.0 x10^3/uL (0.0-0.2) Sodium Level 139 mmol/L (136-145) Potassium Level 5.1 mmol/L (3.5-5.1) Chloride Level 98 mmol/L (98-107) Carbon Dioxide Level 24 mmol/L (21-32) Anion Gap 17 (6-14) Blood Urea Nitrogen 67 mg/dL (7-20) Creatinine 6.0 mg/dL (0.6-1.0) Estimated GFR (Cockcroft-Gault) 7.4 Glucose Level 194 mg/dL (70-99) Calcium Level 9.2 mg/dL (8.5-10.1) Test 06/17/18 08:40 06/17/18 12:17 Glucose (Fingerstick) 220 mg/dL (70-99) 255 mg/dL (70-99) Microbiology 06/16/18 Blood Culture - Final, Complete Medications Current Medications Albuterol/ Ipratropium (Duoneb) 3 ml 1X ONCE NEB Last administered on at 14:38; Start 06/16/18 at 14:15; Stop 06/16/18 at 14:16; Status DC Methylprednisolone Sodium Succinate (SOLU-Medrol 125MG VIAL) 125 mg 1X ONCE IV Last administered on 06/16/18at 17:20; Start 06/16/18 at 16:00; Stop 06/16/18 at 16:01; Status DC Levofloxacin/ Dextrose 100 ml @ 100 mls/hr 1X ONCE IV Last administered on at 17:20; Start 06/16/18 at 16:45; Stop 06/16/18 at 17:44; Status DC Vancomycin HCl 250 ml @ 250 mls/hr 1X ONCE IV ; Start 06/16/18 at 16:45; Stop 06/16/18 at 17:44; Status UNV Vancomycin HCl 1.75 gm/Sodium Chloride 500 ml @ 250 mls/hr 1X ONCE IV Last administered on 06/16/18at 17:19; Start 06/16/18 at 17:45; Stop 06/16/18 at 19:44 ; Status DC Ondansetron HCl (Zofran) 4 mg PRN Q8HRS PRN IV NAUSEA/VOMITING; Start 06/16/18 at 17:15; Stop 06/17/18 at 17:14 Acetaminophen (Tylenol) 650 mg PRN Q4HRS PRN PO FEVER Last administered on 06/16at 18:21; Start 06/16/18 at 17:15; Stop 06/16/18 at 19:29; Status DC Hydromorphone HCl (Dilaudid) 0.5 mg PRN Q3HRS PRN IVP PAIN; Start 06/16/18 at 19:30 Hydromorphone HCl (Dilaudid) 1 mg PRN Q3HRS PRN IVP PAIN Last administered on at 19:37; Start 06/16/18 at 19:30 Acetaminophen/ Hydrocodone Bitart (Lortab 5/325) 1 tab PRN Q6HRS PRN PO PAIN; Start 06/16/18 at 19:30 Acetaminophen (Tylenol) 650 mg PRN Q6HRS PRN PO FEVER; Start 06/16/18 at 19:30 Insulin Human Lispro (HumaLOG) 0-5 UNITS TIDWMEALS SQ Last administered on 06/17at 12:21; Start 06/17/18 at 08:00 Dextrose (Dextrose 50%-Water Syringe) 12.5 gm PRN Q15MIN PRN IV SEE COMMENTS; Start 06/16/18 at 19:30 Amiodarone HCl (Cordarone) 200 mg DAILY PO Last administered on 06/17/18at 09:51 ; Start 06/17/18 at 09:00 Aspirin (Children'S Aspirin) 81 mg DAILYWBKFT PO Last administered on at 07:41; Start 06/17/18 at 08:00 Carbamazepine (TEGretol) 200 mg BID PO Last administered on 06/17/18at 09:49; Start 06/17/18 at 09:00 Carvedilol (Coreg) 12.5 mg BIDWMEALS PO ; Start 06/17/18 at 08:00 Docusate Sodium (Colace) 100 mg PRN BID PRN PO CONSTIPATION; Start 06/16/18 at 23:30 Famotidine (Pepcid) 20 mg HS PO ; Start 06/17/18 at 21:00 Ferrous Sulfate (Feosol) 325 mg DAILY PO Last administered on 06/17/18at 09:49; Start 06/17/18 at 09:00 Guaifenesin (Mucinex) 600 mg BID PO Last administered on 06/17/18at 09:51; Start 06/17/18 at 09:00 Insulin Glargine (Lantus) 15 units PRN QHS PRN SQ diabetes; Start 06/16/18 at 23:30 Insulin Human Lispro (HumaLOG) 5 units PRN TID PRN SQ Diabetes; Start 06/16/18 at 23:30 Albuterol/ Ipratropium (Duoneb) 3 ml PRN QID PRN NEB shortness of breath; Start 06/16/18 at 23:30 Prochlorperazine Maleate (Compazine) 10 mg PRN Q6HRS PRN PO NAUSEA/VOMITING; Start 06/16/18 at 23:30 Sevelamer Carbonate (Renvela) 1,600 mg TIDWMEALS PO Last administered on at 12:31; Start 06/17/18 at 08:00 Ticagrelor (Brilinta) 90 mg BID PO Last administered on 06/17/18at 09:50; Start 06/17/18 at 09:00 Tramadol HCl (Ultram) 50 mg PRN Q4HRS PRN PO HEADACHE; Start 06/16/18 at 23:30 Atorvastatin Calcium (Lipitor) 80 mg HS PO ; Start 06/17/18 at 21:00 Calcitriol (Rocaltrol) 0.25 mcg DAILY PO Last administered on 06/17/18at 09:50; Start 06/17/18 at 09:00 Diltiazem HCl (Cardizem 24hr Cd) 120 mg DAILY PO Last administered on at 09:50; Start 06/17/18 at 09:00 Diphenhydramine HCl (Benadryl) 50 mg PRN Q8HRS PRN PO ITCHING; Start 06/16/18 at 23:30 Erythromycin (E-Mycin) 250 mg BID PO Last administered on 06/17/18at 09:51; Start 06/17/18 at 09:00 Hydralazine HCl (Apresoline) 10 mg PRN TID PRN PO HYPERTENSION, SEE COMMENTS; Start 06/16/18 at 23:30 Lidocaine (Lidoderm) 1 patch PRN DAILY PRN TP PAIN; Start 06/16/18 at 23:30 Zolpidem Tartrate (Ambien) 5 mg QHS PO ; Start 06/17/18 at 21:00 Niacin (Slo-Niacin) 250 mg BID PO Last administered on 06/17/18at 09:49; Start 06/17/18 at 09:00 Polyethylene Glycol (miraLAX PACKET) 17 gm DAILY PO Last administered on at 09:52; Start 06/17/18 at 09:00 Sodium Chloride (Saline Mist Nasal) 1 erich PRN BID PRN NS Congestion; Start at 23:30 Cefepime HCl (Maxipime) 1 gm Q24H IVP ; Start 06/17/18 at 22:00 Cefepime HCl (Maxipime) 1 gm ONCE ONCE IVP Last administered on 06/17/18at 00: 15; Start 06/17/18 at 00:00; Stop 06/17/18 at 00:01; Status DC Miscellaneous (Lidoderm Patch Removal) 1 ea QHS MC ; Start 06/17/18 at 21:00 Acetaminophen (Tylenol) 650 mg 1X PRN PRN PO PRE-TRANSFUSION; Start 06/17/18 at 05:15 Diphenhydramine HCl (Benadryl Oral Elixir) 12.5 mg 1X PRN PRN PO PRE- TRANSFUSION; Start 06/17/18 at 05:15 Diphenhydramine HCl (Benadryl) 25 mg PRN 1X PRN PO PRE-TRANSFUSION; Start 06/17 at 05:15 Daptomycin 360 mg/ Sodium Chloride 50 ml @ 100 mls/hr Q48H IV Last administered on 06/17/18at 08:46; Start 06/17/18 at 07:00 Micafungin Sodium 100 mg/Dextrose 100 ml @ 100 mls/hr Q24H IV Last administered on 06/17/18at 07:27; Start 06/17/18 at 06:30 Metronidazole (Flagyl) 500 mg Q8HRS PO Last administered on 06/17/18at 13:59; Start 06/17/18 at 06:30 Oxycodone HCl (OxyCONTIN) 10 mg Q12HR PO Last administered on 06/17/18at 09:52; Start 06/17/18 at 10:00 Lactobacillus Rhamnosus (Culturelle) 1 cap BID PO ; Start 06/17/18 at 21:00 Active Scripts Active Brilinta (Ticagrelor) 90 Mg Tablet 90 Mg PO BID 30 Days Reported Renvela (Sevelamer Carbonate) 800 Mg Tablet 2 Tab PO TID Melatonin 3 Mg Tablet 9 Mg PO QHS Lantus Solostar (Insulin Glargine,Hum.rec.anlog) 100 Unit/1 Ml Insuln.pen 15 Unit SQ QHS PRN Duoneb 0.5-3(2.5) Mg/3 Ml (Albuterol/Ipratropium) 3 Ml Ampul.neb 3 Ml NEB QID PRN Humalog (Insulin Lispro) 100 Unit/1 Ml Vial 100 Unit SQ TID Humalog (Insulin Lispro) 100 Unit/1 Ml Vial 5 Unit SQ TID PRN Guaifenesin 600 Mg Tablet.er 600 Mg PO BID [place] Saline (Sodium Chloride) 50 Ml Minco 1 Minco NS BID PRN Acetaminophen 500 Mg Tablet 650 Mg PO Q6HRS PRN Morphine Sulfate Er (Morphine Sulfate) 30 Mg Tablet.er 1 Tab PO BID Aspirin 81 Mg Tab.chew 1 Tab PO DAILY Calcitriol 0.25 Mcg Capsule 1 Cap PO DAILY Pepcid (Famotidine) 20 Mg Tablet 20 Mg PO HS Niacin 250 Mg Tablet 250 Mg PO BID Miralax (Polyethylene Glycol 3350) 17 Gm Powd.pack 1 Packet PO DAILY Hydralazine Hcl 10 Mg Tablet 1 Tab PO PRN TID PRN Oxycodone Hcl Immed.release (Oxycodone Hcl) 5 Mg Tablet 2 Tab PO PRN Q4HRS PRN Ferrous Sulfate 325 Mg Tablet 1 Tab PO DAILY Diphenhydramine Hcl 50 Mg Capsule 1 Cap PO PRN Q8HRS PRN Prochlorperazine Maleate 10 Mg Tablet 1 Tab PO PRN Q6HRS PRN Lidocaine 1 Each Adh..patch 1 Each TP PRN DAILY PRN Tegretol (Carbamazepine) 200 Mg Tablet 1 Tab PO BID Tramadol Hcl 50 Mg Tablet 50 Mg PO Q4HRS PRN Carvedilol (Carvedilol) 3.125 Mg Tablet 12.5 Mg PO BID Erythromycin (Erythromycin Base) 250 Mg Capsule.dr 250 Mg PO BID Cardizem Cd (Diltiazem Hcl) 180 Mg Cap.er.24h 120 Mg PO DAILY Amiodarone Hcl 200 Mg Tablet 1 Tab PO DAILY Lipitor (Atorvastatin Calcium) 80 Mg Tablet 80 Mg PO HS Docusate Sodium 100 Mg Capsule 1 Cap PO PRN PRN Vitals/I & O Vital Sign - Last 24 Hours 06/16/18 06/16/18 06/16/18 06/16/18 15:30 16:00 16:30 17:00 Temp 102.6 102.6 Pulse 88 90 96 94 Resp 16 16 16 15 B/P (MAP) 121/56 (77) 145/107 (120) 118/54 (75) 109/46 (67) Pulse Ox 100 100 90 96 O2 Delivery Nasal Cannula Nasal Cannula Nasal Cannula Nasal Cannula O2 Flow Rate 2.0 2.0 2.0 2.0 06/16/18 06/16/18 06/16/18 06/16/18 17:30 18:00 18:45 19:00 Temp 99.0 99.0 Pulse 90 88 96 94 Resp 14 15 20 18 B/P (MAP) 115/48 (70) 101/45 (63) 98/70 (79) 109/40 (63) Pulse Ox 100 100 100 100 O2 Delivery Nasal Cannula Nasal Cannula Nasal Cannula Nasal Cannula O2 Flow Rate 2.0 2.0 2.0 2.0 06/16/18 06/16/18 06/16/18 06/16/18 19:15 19:30 19:45 20:00 Temp 99.1 99.1 Pulse 106 90 92 90 Resp 20 20 16 15 B/P (MAP) 81/44 (56) 106/47 (66) 106/48 (67) 97/72 (80) Pulse Ox 100 100 100 100 O2 Delivery Nasal Cannula Nasal Cannula Nasal Cannula Room Air O2 Flow Rate 2.0 2.0 2.0 06/16/18 06/16/18 06/16/18 06/16/18 20:00 21:00 22:00 23:00 Pulse 83 80 80 Resp 15 14 12 B/P (MAP) 131/66 (87) 114/65 (81) 128/51 (76) Pulse Ox 97 96 100 O2 Delivery Room Air Room Air Room Air Room Air 06/16/18 06/17/18 06/17/18 06/17/18 23:45 00:00 01:00 02:00 Temp 99.1 99.1 Pulse 85 79 79 Resp 13 14 13 B/P (MAP) 134/89 (104) 142/49 (80) 138/51 (80) Pulse Ox 99 97 95 O2 Delivery Room Air Room Air Room Air Room Air 06/17/18 06/17/18 06/17/18 06/17/18 03:00 04:00 04:00 05:00 Temp 98.9 98.9 Pulse 81 80 80 Resp 14 13 20 B/P (MAP) 142/100 (114) 119/60 (79) 127/49 (75) Pulse Ox 100 97 100 O2 Delivery Room Air Room Air Room Air Room Air 06/17/18 06/17/18 06/17/18 06/17/18 06:00 07:00 07:56 08:00 Temp 99.0 99.0 Pulse 78 77 77 79 Resp 18 11 11 B/P (MAP) 127/55 (79) 107/77 (87) 107/77 110/55 (73) Pulse Ox 98 97 97 O2 Delivery Room Air Room Air Room Air 06/17/18 06/17/18 06/17/18 06/17/18 08:00 09:00 09:50 09:51 Pulse 79 82 82 Resp 13 B/P (MAP) 133/48 (76) 133/46 133/48 Pulse Ox 100 O2 Delivery Room Air Room Air 06/17/18 06/17/18 06/17/18 06/17/18 09:52 10:00 11:00 12:00 Temp 99.1 99.1 Pulse 81 79 75 Resp 18 13 13 11 B/P (MAP) 114/42 (66) 109/57 (74) 104/44 (64) Pulse Ox 100 100 100 100 O2 Delivery Room Air Room Air Room Air Room Air 06/17/18 06/17/18 06/17/18 06/17/18 12:00 13:00 13:56 14:00 Pulse 76 81 Resp 11 11 16 B/P (MAP) 102/41 (61) 103/49 (67) Pulse Ox 100 100 100 O2 Delivery Room Air Room Air Room Air Room Air 06/17/18 15:00 Pulse 80 Resp 10 B/P (MAP) 100/62 (75) Pulse Ox 100 O2 Delivery Room Air Intake and Output 06/16/18 06/16/18 06/17/18 14:59 22:59 06:59 Output Total 0 ml 0 ml Balance 0 ml 0 ml Nutrition Consultation Dietary Evaluation: Recommendations by RD: Increase Calorie Intake, Protein supplementation Comments: REC liberalize diet to regular to promote/encourage increased PO intake REC Rian BID (fruit punch) REC MVI - wound healing Expected Outcomes/Goals: PO intake to meet >75% est needs Interpretation of weight loss: >7.5% in 3 months Malnutrition Findings: Weight Status: Appropriate RALPH QUINTERO MD Jun 17, 2018 15:43
--- NOTE | 2018-06-17 15:57 | EKG ---
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
[2018-06-17] MEDS ORDERED: IV NORMAL SALINE 1000ML BAG 1,000 ML IV PRN ×2 (16:51)
[2018-06-17] MEDS ORDERED: DIALYSIS PATIENT. MC PRN ×2 (17:00)
[2018-06-17] MEDS ORDERED: ALBUMIN HUMAN 25% 200 ML IV PRN (17:00)
--- NOTE | 2018-06-17 18:14 | NUR ---
Received call from Juhi in [facility] where patient resides. Juhi stated that 3 of their residents were being treated for scabies and wanted to inform the [place] healthcare team to watch for scabies. I assessed the patient for rashes and asked if the patient had been feeling itchy. Aside from patients sores and scabbing I could not find rashes. Contacted Dr. Daly to inform him. He suggested that he did not suspect scabies but we will continue to monitor.
[2018-06-17] MEDS: PATCH REMOVAL. MC SCH (21:00)
[2018-06-17] MEDS ORDERED: FAMOTIDINE 20 MG TABLET. PO SCH (21:00)
[2018-06-17] MEDS: LACTOBACILLUS RHAMNOSUS GG 1 CAPSULE. PO SCH (22:58)
[2018-06-17] MEDS: ATORVASTATIN CALCIUM 40 MG TABLET. PO SCH (22:58)
[2018-06-17] MEDS: CEFEPIME HCL IV Push 1 GM VIAL. IVP SCH (23:00)
[2018-06-17] MEDS: IPRATRPIUM/ALBUTEROL 0.5/2.5MG 3 ML NEBU. NEB PRN (23:19)
[2018-06-18] VITALS (15 sets, daily range): BP systolic 89–149; BP diastolic 40–87
[2018-06-18] MEDS: traMADol 50 MG TABLET PO PRN ×2 (00:01→12:12)
[2018-06-18] MEDS: ZOLPIDEM 5 MG TABLET. PO SCH ×2 (00:01→20:46)
[2018-06-18] MEDS: MICAFUNGIN 100 MG in IV DEXTROSE 5% 100ML 100 ML IV SCH (05:55)
[2018-06-18] MEDS: metroNIDAZOLE 500 MG TABLET PO SCH ×3 (05:55→20:45)
[2018-06-18 05:59] LABS: BASO % 0 % (0-3); EOS % 0 % (0-3); HEMATOCRIT 24.2 % (36.0-47.0); HEMOGLOBIN 7.8 g/dL (12.0-15.5); LYMPH # 0.9 x10^3/uL (1.0-4.8); LYMPH % 3 % (24-48); MEAN CORPUSCULAR HEMOGLOBIN 32 pg (25-35); MEAN CORPUSCULAR HGB CONC 32 g/dL (31-37); MEAN CORPUSCULAR VOLUME 98 fL (79-100); MONO # 1.9 x10^3/uL (0.0-1.1); MONO % 7 % (0-9); NEUT # 24.4 x10^3uL (1.8-7.7); NEUT % 89 % (31-73); PLATELET COUNT 250 x10^3/uL (140-400); RED BLOOD COUNT 2.47 x10^6/uL (3.50-5.40); RED CELL DISTRIBUTION WIDTH 19.6 % (11.5-14.5); WHITE BLOOD COUNT 27.2 x10^3/uL (4.0-11.0)
[2018-06-18 06:14] LABS: ALBUMIN 2.4 g/dL (3.4-5.0); ALBUMIN/GLOBULIN RATIO 0.6 (1.0-1.7); CALCIUM 8.8 mg/dL (8.5-10.1); CREATININE 3.4 mg/dL (0.6-1.0); GFR 14.2; POTASSIUM 4.2 mmol/L (3.5-5.1); TOTAL BILIRUBIN 0.8 mg/dL (0.2-1.0); TOTAL PROTEIN 6.5 g/dL (6.4-8.2)
--- NOTE | 2018-06-18 07:37 | PDOC ---
Infectious Disease Note Subjective Subjective Aches in neck/back/legs Has some cramps in back No F/C/S/SOA/Rash Vital Sign Vital Signs Vital Signs Date Time Temp Pulse Resp B/P (MAP) Pulse Ox O2 Delivery O2 Flow Rate FiO2 06/18/18 06:00 100 10 114/64 (81) 100 Room Air 06/18/18 04:00 98.4 98.4 06/18/18 02:59 2.0 Physical Exam PHYSICAL EXAM CONSTITUTIONAL: She is asleep but awakens and states she is hurting and then falls back to sleep. She appears fatigued. She is in no acute distress. HEENT: She has normal conjunctivae. Oral cavity, pharynx was dry - clear. NECK: Supple, no JVD. LUNGS: Decreased in the bases. HEART: S1, S2. 1/6 murmur. ABDOMEN: Soft, nontender, no guarding or rebound. PD catheter is in place. EXTREMITIES: Without clubbing, cyanosis. Her right foot has chronic edema and some chronic venous changes with some dry areas. Her right groin area is without signs of complications. Right leg has a dry area of wound that is dressed SKIN: Without signs of generalized rash. PSYCHIATRIC: Affect is flat. NEUROLOGIC: She responded to questions. INTRAVENOUS: She has a peripheral in her left upper extremity. Her right upper extremity fistula has a questionable hematoma associated with it. Labs Lab Laboratory Tests Test 06/17/18 08:40 06/17/18 12:17 06/17/18 23:02 06/18/18 05:30 Glucose (Fingerstick) 220 mg/dL (70-99) 255 mg/dL (70-99) 286 mg/dL (70-99) White Blood Count 27.2 x10^3/uL (4.0-11.0) Red Blood Count 2.47 x10^6/uL (3.50-5.40) Hemoglobin 7.8 g/dL (12.0-15.5) Hematocrit 24.2 % (36.0-47.0) Mean Corpuscular Volume 98 fL (79-100) Mean Corpuscular Hemoglobin 32 pg (25-35) Mean Corpuscular Hemoglobin Concent 32 g/dL (31-37) Red Cell Distribution Width 19.6 % (11.5-14.5) Platelet Count 250 x10^3/uL (140-400) Neutrophils (%) (Auto) 89 % (31-73) Lymphocytes (%) (Auto) 3 % (24-48) Monocytes (%) (Auto) 7 % (0-9) Eosinophils (%) (Auto) 0 % (0-3) Basophils (%) (Auto) 0 % (0-3) Neutrophils # (Auto) 24.4 x10^3uL (1.8-7.7) Lymphocytes # (Auto) 0.9 x10^3/uL (1.0-4.8) Monocytes # (Auto) 1.9 x10^3/uL (0.0-1.1) Eosinophils # (Auto) 0.0 x10^3/uL (0.0-0.7) Basophils # (Auto) 0.0 x10^3/uL (0.0-0.2) Sodium Level 138 mmol/L (136-145) Potassium Level 4.2 mmol/L (3.5-5.1) Chloride Level 97 mmol/L (98-107) Carbon Dioxide Level 30 mmol/L (21-32) Anion Gap 11 (6-14) Blood Urea Nitrogen 45 mg/dL (7-20) Creatinine 3.4 mg/dL (0.6-1.0) Estimated GFR (Cockcroft-Gault) 14.2 BUN/Creatinine Ratio 13 (6-20) Glucose Level 259 mg/dL (70-99) Calcium Level 8.8 mg/dL (8.5-10.1) Total Bilirubin 0.8 mg/dL (0.2-1.0) Aspartate Amino Transf (AST/SGOT) 10 U/L (15-37) Alanine Aminotransferase (ALT/SGPT) 8 U/L (14-59) Alkaline Phosphatase 100 U/L (46-116) Total Protein 6.5 g/dL (6.4-8.2) Albumin 2.4 g/dL (3.4-5.0) Albumin/Globulin Ratio 0.6 (1.0-1.7) Micro Microbiology 06/16/18 Blood Culture - Final, Complete Objective Assessment Sepsis - POA 06/16/2018 - 05/29 GPC 06/16 Fever - better Abx allergies Leukocytosis -s/p solumedrol - better (also s/p PRBCs) Multiple wounds - Gen surg has evaluated and now wound care Anemia s/p 1 unit PRBCs 06/17 Encephalopathy - answers questions appropriately when awakened CKD on PD/HD RUE ? hematoma about the fistula Plan Plan of Care Cont Dapto - (Ho VRE/? MRSA)/Flagyl/Micafungin/ Cefepime - s/p Levoflox times one 06/16 - taper soon F/u labs and cults Cont wound care per WC team Need to off load D/w nursing ALBERTO NAVA MD Jun 18, 2018 07:37
[2018-06-18] MEDS: CARVEDILOL 3.125 MG TABLET. PO SCH (08:00)
--- NOTE | 2018-06-18 08:30 | PDOC ---
PROGRESS NOTES Chief Complaint Chief Complaint Shortness of breath - with Hypoxia - likely CHF exacerbation plus COPD exacerbation RUE hematoma - could be AV fistula infiltration vs pseudoaneurysm Right lower extremity swelling with skin breakdown - goes back to December 15, 2017, but this is much worse, will treat as cellulitis. Despite her allergies listed she did tolerate cephalosporins previously, aConsult ID Severe sepsis - empiric antibiotics for her RLE cellulitis as above Recent Right groin sx wound infection s/p i and d 02/01 and 02/05 - vascular surgery consulted Recent right leg PAD s/p R fem to pop bypass h/o L BKA - stable CAD w/ hx CABG, EF 50% - cont meds Diabetic retinopathy with VITREOUS HEMORRHAGE s/p sx, fu with [facility] Apr 09 - stable Vitreous hemorrhage, left > RT sec to DM - stable End-stage renal disease, on dialysis via AV fistula here at home per pt has been on PD - consult nephrology A- fib - amiodarone therapy Gastroparesis - on Erythromycin Left retinal optic disc drusen, bl blurry vision Acute on chronic decubitus ulcer - will have wound care to see. Will consult Dr. Solorio Hepatomegaly - will monitor HTN - cont meds FEN - renal diet PPX - heparin FULL CODE History of Present Illness History of Present Illness Patient very somnolent during my encounter. I have requested to stop that and just continue with her home medications. Patient much more stable today compared to yesterday. Appreciate ux consultant's recommendations Vitals Vitals Vital Signs Date Time Temp Pulse Resp B/P (MAP) Pulse Ox O2 Delivery O2 Flow Rate FiO2 06/18/18 07:00 87 11 122/87 (99) 100 Room Air 06/18/18 04:00 98.4 98.4 06/18/18 02:59 2.0 Physical Exam Physical Exam CONSTITUTIONAL: She is asleep but awakens and states she is hurting and then falls back to sleep. She appears fatigued. She is in no acute distress. HEENT: She has normal conjunctivae. Oral cavity, pharynx was dry - clear. NECK: Supple, no JVD. LUNGS: Decreased in the bases. HEART: S1, S2. 1/6 murmur. ABDOMEN: Soft, nontender, no guarding or rebound. PD catheter is in place. EXTREMITIES: Without clubbing, cyanosis. Her right foot has chronic edema and some chronic venous changes with some dry areas. Her right groin area is without signs of complications. Right leg has a dry area of wound that is dressed SKIN: Without signs of generalized rash. PSYCHIATRIC: Affect is flat. NEUROLOGIC: She responded to questions. INTRAVENOUS: She has a peripheral in her left upper extremity. Her right upper extremity fistula has a questionable hematoma associated with it. General: Alert, Oriented X3, Cooperative, No acute distress Heart: Regular rate Lungs: Other Abdomen: Soft, No tenderness Extremities: Other (strong palpable proximal bypass pulse. Strong triphasic and biphasic Doppler signals to distal bypass, right DP and PT. Foot is warm. Unable to assess motor function and incision due to patient's drowsiness. Her posterior right calf has superficial beginning stages or pressure ulcer. Her right arm AV graft has strong thrill and bruit proximally and distally. Right upper medial arm has large mass of mottled ecchymosis, this is mostly firm on palpation and nonpulsatile.) Skin: Other (patient with severe right lower extremity skin tautness, dryness with scattered superficial scabbing, none of which appear to penetrate beyond epidermis. She has a dark thickened area of skin midfoot dorsal side. She has moderate right leg swelling. Skin is flaky. Right groin site is healed appropriately. No signs of infection the right groin. ) Labs LABS Laboratory Tests Test 06/17/18 08:40 06/17/18 12:17 06/17/18 23:02 06/18/18 05:30 Glucose (Fingerstick) 220 mg/dL (70-99) 255 mg/dL (70-99) 286 mg/dL (70-99) White Blood Count 27.2 x10^3/uL (4.0-11.0) Red Blood Count 2.47 x10^6/uL (3.50-5.40) Hemoglobin 7.8 g/dL (12.0-15.5) Hematocrit 24.2 % (36.0-47.0) Mean Corpuscular Volume 98 fL (79-100) Mean Corpuscular Hemoglobin 32 pg (25-35) Mean Corpuscular Hemoglobin Concent 32 g/dL (31-37) Red Cell Distribution Width 19.6 % (11.5-14.5) Platelet Count 250 x10^3/uL (140-400) Neutrophils (%) (Auto) 89 % (31-73) Lymphocytes (%) (Auto) 3 % (24-48) Monocytes (%) (Auto) 7 % (0-9) Eosinophils (%) (Auto) 0 % (0-3) Basophils (%) (Auto) 0 % (0-3) Neutrophils # (Auto) 24.4 x10^3uL (1.8-7.7) Lymphocytes # (Auto) 0.9 x10^3/uL (1.0-4.8) Monocytes # (Auto) 1.9 x10^3/uL (0.0-1.1) Eosinophils # (Auto) 0.0 x10^3/uL (0.0-0.7) Basophils # (Auto) 0.0 x10^3/uL (0.0-0.2) Sodium Level 138 mmol/L (136-145) Potassium Level 4.2 mmol/L (3.5-5.1) Chloride Level 97 mmol/L (98-107) Carbon Dioxide Level 30 mmol/L (21-32) Anion Gap 11 (6-14) Blood Urea Nitrogen 45 mg/dL (7-20) Creatinine 3.4 mg/dL (0.6-1.0) Estimated GFR (Cockcroft-Gault) 14.2 BUN/Creatinine Ratio 13 (6-20) Glucose Level 259 mg/dL (70-99) Calcium Level 8.8 mg/dL (8.5-10.1) Total Bilirubin 0.8 mg/dL (0.2-1.0) Aspartate Amino Transf (AST/SGOT) 10 U/L (15-37) Alanine Aminotransferase (ALT/SGPT) 8 U/L (14-59) Alkaline Phosphatase 100 U/L (46-116) Total Protein 6.5 g/dL (6.4-8.2) Albumin 2.4 g/dL (3.4-5.0) Albumin/Globulin Ratio 0.6 (1.0-1.7) Assessment and Plan Assessmemt and Plan Problems Medical Problems: (1) End-stage renal disease on hemodialysis Status: Acute (2) Sepsis Status: Acute Comment Review of Relevant I have reviewed the following items bert (where applicable) has been applied. Labs Laboratory Tests Test 06/16/18 14:00 06/16/18 14:40 06/16/18 17:36 06/16/18 19:15 White Blood Count 26.4 x10^3/uL (4.0-11.0) Red Blood Count 2.44 x10^6/uL (3.50-5.40) Hemoglobin 7.9 g/dL (12.0-15.5) Hematocrit 24.6 % (36.0-47.0) Mean Corpuscular Volume 101 fL (79-100) Mean Corpuscular Hemoglobin 32 pg (25-35) Mean Corpuscular Hemoglobin Concent 32 g/dL (31-37) Red Cell Distribution Width 17.1 % (11.5-14.5) Platelet Count 316 x10^3/uL (140-400) Neutrophils (%) (Auto) 97 % (31-73) Lymphocytes (%) (Auto) 1 % (24-48) Monocytes (%) (Auto) 2 % (0-9) Eosinophils (%) (Auto) 0 % (0-3) Basophils (%) (Auto) 0 % (0-3) Neutrophils # (Auto) 25.5 x10^3uL (1.8-7.7) Lymphocytes # (Auto) 0.2 x10^3/uL (1.0-4.8) Monocytes # (Auto) 0.6 x10^3/uL (0.0-1.1) Eosinophils # (Auto) 0.0 x10^3/uL (0.0-0.7) Basophils # (Auto) 0.1 x10^3/uL (0.0-0.2) Segmented Neutrophils % 70 % (35-66) Band Neutrophils % 21 % (0-9) Lymphocytes % 3 % (24-48) Monocytes % 5 % (0-10) Metamyelocytes % 1 % (0-0) Smudge Cells Present Toxic Vacuolation Slight Platelet Estimate Adequate (ADEQUATE) Anisocytosis Slight Prothrombin Time 15.4 SEC (11.7-14.0) Prothromb Time International Ratio 1.3 (0.8-1.1) Activated Partial Thromboplast Time 34 SEC (24-38) Lactic Acid Level 1.3 mmol/L (0.4-2.0) 1.7 mmol/L (0.4-2.0) O2 Saturation 96 % (92-99) Arterial Blood pH 7.46 (7.35-7.45) Arterial Blood pCO2 at Patient Temp 36 mmHg (35-46) Arterial Blood pO2 at Patient Temp 87 mmHg (75-108) Arterial Blood HCO3 25 mmol/L (21-28) Arterial Blood Base Excess 2 mmol/L (-3-3) FiO2 28 Sodium Level 138 mmol/L (136-145) Potassium Level 4.7 mmol/L (3.5-5.1) Chloride Level 97 mmol/L (98-107) Carbon Dioxide Level 27 mmol/L (21-32) Anion Gap 14 (6-14) Blood Urea Nitrogen 58 mg/dL (7-20) Creatinine 5.3 mg/dL (0.6-1.0) Estimated GFR (Cockcroft-Gault) 8.5 BUN/Creatinine Ratio 11 (6-20) Glucose Level 132 mg/dL (70-99) Calcium Level 9.0 mg/dL (8.5-10.1) Magnesium Level 1.9 mg/dL (1.8-2.4) Total Bilirubin 0.9 mg/dL (0.2-1.0) Aspartate Amino Transf (AST/SGOT) 12 U/L (15-37) Alanine Aminotransferase (ALT/SGPT) 9 U/L (14-59) Alkaline Phosphatase 114 U/L (46-116) Ammonia 24 mcmol/L (11-34) Troponin I Quantitative 0.158 ng/mL (0.000-0.055) QL-Tlz-L-Type Natriuretic Peptide > 37575 pg/mL (0-124) Total Protein 6.8 g/dL (6.4-8.2) Albumin 2.6 g/dL (3.4-5.0) Albumin/Globulin Ratio 0.6 (1.0-1.7) Influenza Type A Antigen Negative (NEGATIVE) Influenza Type B Antigen Negative (NEGATIVE) Test 06/16/18 22:00 06/16/18 22:13 06/17/18 04:10 06/17/18 08:40 Nasal Screen MRSA (PCR) Negative (Negative) Glucose (Fingerstick) 162 mg/dL (70-99) 220 mg/dL (70-99) White Blood Count 37.5 x10^3/uL (4.0-11.0) Red Blood Count 2.22 x10^6/uL (3.50-5.40) Hemoglobin 7.0 g/dL (12.0-15.5) Hematocrit 22.6 % (36.0-47.0) Mean Corpuscular Volume 102 fL (79-100) Mean Corpuscular Hemoglobin 32 pg (25-35) Mean Corpuscular Hemoglobin Concent 31 g/dL (31-37) Red Cell Distribution Width 17.5 % (11.5-14.5) Platelet Count 277 x10^3/uL (140-400) Neutrophils (%) (Auto) 96 % (31-73) Lymphocytes (%) (Auto) 2 % (24-48) Monocytes (%) (Auto) 3 % (0-9) Eosinophils (%) (Auto) 0 % (0-3) Basophils (%) (Auto) 0 % (0-3) Neutrophils # (Auto) 35.8 x10^3uL (1.8-7.7) Lymphocytes # (Auto) 0.7 x10^3/uL (1.0-4.8) Monocytes # (Auto) 1.0 x10^3/uL (0.0-1.1) Eosinophils # (Auto) 0.0 x10^3/uL (0.0-0.7) Basophils # (Auto) 0.0 x10^3/uL (0.0-0.2) Sodium Level 139 mmol/L (136-145) Potassium Level 5.1 mmol/L (3.5-5.1) Chloride Level 98 mmol/L (98-107) Carbon Dioxide Level 24 mmol/L (21-32) Anion Gap 17 (6-14) Blood Urea Nitrogen 67 mg/dL (7-20) Creatinine 6.0 mg/dL (0.6-1.0) Estimated GFR (Cockcroft-Gault) 7.4 Glucose Level 194 mg/dL (70-99) Calcium Level 9.2 mg/dL (8.5-10.1) Test 06/17/18 12:17 06/17/18 23:02 06/18/18 05:30 Glucose (Fingerstick) 255 mg/dL (70-99) 286 mg/dL (70-99) White Blood Count 27.2 x10^3/uL (4.0-11.0) Red Blood Count 2.47 x10^6/uL (3.50-5.40) Hemoglobin 7.8 g/dL (12.0-15.5) Hematocrit 24.2 % (36.0-47.0) Mean Corpuscular Volume 98 fL (79-100) Mean Corpuscular Hemoglobin 32 pg (25-35) Mean Corpuscular Hemoglobin Concent 32 g/dL (31-37) Red Cell Distribution Width 19.6 % (11.5-14.5) Platelet Count 250 x10^3/uL (140-400) Neutrophils (%) (Auto) 89 % (31-73) Lymphocytes (%) (Auto) 3 % (24-48) Monocytes (%) (Auto) 7 % (0-9) Eosinophils (%) (Auto) 0 % (0-3) Basophils (%) (Auto) 0 % (0-3) Neutrophils # (Auto) 24.4 x10^3uL (1.8-7.7) Lymphocytes # (Auto) 0.9 x10^3/uL (1.0-4.8) Monocytes # (Auto) 1.9 x10^3/uL (0.0-1.1) Eosinophils # (Auto) 0.0 x10^3/uL (0.0-0.7) Basophils # (Auto) 0.0 x10^3/uL (0.0-0.2) Sodium Level 138 mmol/L (136-145) Potassium Level 4.2 mmol/L (3.5-5.1) Chloride Level 97 mmol/L (98-107) Carbon Dioxide Level 30 mmol/L (21-32) Anion Gap 11 (6-14) Blood Urea Nitrogen 45 mg/dL (7-20) Creatinine 3.4 mg/dL (0.6-1.0) Estimated GFR (Cockcroft-Gault) 14.2 BUN/Creatinine Ratio 13 (6-20) Glucose Level 259 mg/dL (70-99) Calcium Level 8.8 mg/dL (8.5-10.1) Total Bilirubin 0.8 mg/dL (0.2-1.0) Aspartate Amino Transf (AST/SGOT) 10 U/L (15-37) Alanine Aminotransferase (ALT/SGPT) 8 U/L (14-59) Alkaline Phosphatase 100 U/L (46-116) Total Protein 6.5 g/dL (6.4-8.2) Albumin 2.4 g/dL (3.4-5.0) Albumin/Globulin Ratio 0.6 (1.0-1.7) Laboratory Tests Test 06/17/18 08:40 06/17/18 12:17 06/17/18 23:02 06/18/18 05:30 Glucose (Fingerstick) 220 mg/dL (70-99) 255 mg/dL (70-99) 286 mg/dL (70-99) White Blood Count 27.2 x10^3/uL (4.0-11.0) Red Blood Count 2.47 x10^6/uL (3.50-5.40) Hemoglobin 7.8 g/dL (12.0-15.5) Hematocrit 24.2 % (36.0-47.0) Mean Corpuscular Volume 98 fL (79-100) Mean Corpuscular Hemoglobin 32 pg (25-35) Mean Corpuscular Hemoglobin Concent 32 g/dL (31-37) Red Cell Distribution Width 19.6 % (11.5-14.5) Platelet Count 250 x10^3/uL (140-400) Neutrophils (%) (Auto) 89 % (31-73) Lymphocytes (%) (Auto) 3 % (24-48) Monocytes (%) (Auto) 7 % (0-9) Eosinophils (%) (Auto) 0 % (0-3) Basophils (%) (Auto) 0 % (0-3) Neutrophils # (Auto) 24.4 x10^3uL (1.8-7.7) Lymphocytes # (Auto) 0.9 x10^3/uL (1.0-4.8) Monocytes # (Auto) 1.9 x10^3/uL (0.0-1.1) Eosinophils # (Auto) 0.0 x10^3/uL (0.0-0.7) Basophils # (Auto) 0.0 x10^3/uL (0.0-0.2) Sodium Level 138 mmol/L (136-145) Potassium Level 4.2 mmol/L (3.5-5.1) Chloride Level 97 mmol/L (98-107) Carbon Dioxide Level 30 mmol/L (21-32) Anion Gap 11 (6-14) Blood Urea Nitrogen 45 mg/dL (7-20) Creatinine 3.4 mg/dL (0.6-1.0) Estimated GFR (Cockcroft-Gault) 14.2 BUN/Creatinine Ratio 13 (6-20) Glucose Level 259 mg/dL (70-99) Calcium Level 8.8 mg/dL (8.5-10.1) Total Bilirubin 0.8 mg/dL (0.2-1.0) Aspartate Amino Transf (AST/SGOT) 10 U/L (15-37) Alanine Aminotransferase (ALT/SGPT) 8 U/L (14-59) Alkaline Phosphatase 100 U/L (46-116) Total Protein 6.5 g/dL (6.4-8.2) Albumin 2.4 g/dL (3.4-5.0) Albumin/Globulin Ratio 0.6 (1.0-1.7) Microbiology 06/16/18 Blood Culture - Final, Complete Medications Current Medications Albuterol/ Ipratropium (Duoneb) 3 ml 1X ONCE NEB Last administered on at 14:38; Start 06/16/18 at 14:15; Stop 06/16/18 at 14:16; Status DC Methylprednisolone Sodium Succinate (SOLU-Medrol 125MG VIAL) 125 mg 1X ONCE IV Last administered on 06/16/18at 17:20; Start 06/16/18 at 16:00; Stop 06/16/18 at 16:01; Status DC Levofloxacin/ Dextrose 100 ml @ 100 mls/hr 1X ONCE IV Last administered on at 17:20; Start 06/16/18 at 16:45; Stop 06/16/18 at 17:44; Status DC Vancomycin HCl 250 ml @ 250 mls/hr 1X ONCE IV ; Start 06/16/18 at 16:45; Stop 06/16/18 at 17:44; Status UNV Vancomycin HCl 1.75 gm/Sodium Chloride 500 ml @ 250 mls/hr 1X ONCE IV Last administered on 06/16/18at 17:19; Start 06/16/18 at 17:45; Stop 06/16/18 at 19:44 ; Status DC Ondansetron HCl (Zofran) 4 mg PRN Q8HRS PRN IV NAUSEA/VOMITING; Start 06/16/18 at 17:15; Stop 06/17/18 at 17:14; Status DC Acetaminophen (Tylenol) 650 mg PRN Q4HRS PRN PO FEVER Last administered on 06/16at 18:21; Start 06/16/18 at 17:15; Stop 06/16/18 at 19:29; Status DC Hydromorphone HCl (Dilaudid) 0.5 mg PRN Q3HRS PRN IVP PAIN; Start 06/16/18 at 19:30 Hydromorphone HCl (Dilaudid) 1 mg PRN Q3HRS PRN IVP PAIN Last administered on at 19:37; Start 06/16/18 at 19:30 Acetaminophen/ Hydrocodone Bitart (Lortab 5/325) 1 tab PRN Q6HRS PRN PO PAIN; Start 06/16/18 at 19:30 Acetaminophen (Tylenol) 650 mg PRN Q6HRS PRN PO FEVER; Start 06/16/18 at 19:30 Insulin Human Lispro (HumaLOG) 0-5 UNITS TIDWMEALS SQ Last administered on 06/17at 23:48; Start 06/17/18 at 08:00 Dextrose (Dextrose 50%-Water Syringe) 12.5 gm PRN Q15MIN PRN IV SEE COMMENTS; Start 06/16/18 at 19:30 Amiodarone HCl (Cordarone) 200 mg DAILY PO Last administered on 06/17/18at 09:51 ; Start 06/17/18 at 09:00 Aspirin (Children'S Aspirin) 81 mg DAILYWBKFT PO Last administered on at 07:41; Start 06/17/18 at 08:00 Carbamazepine (TEGretol) 200 mg BID PO Last administered on 06/17/18at 22:59; Start 06/17/18 at 09:00 Carvedilol (Coreg) 12.5 mg BIDWMEALS PO ; Start 06/17/18 at 08:00 Docusate Sodium (Colace) 100 mg PRN BID PRN PO CONSTIPATION; Start 06/16/18 at 23:30 Famotidine (Pepcid) 20 mg HS PO Last administered on 2/21/19at 22:59; Start at 21:00 Ferrous Sulfate (Feosol) 325 mg DAILY PO Last administered on 06/17/18 09:49; Start 06/17/18 at 09:00 Guaifenesin (Mucinex) 600 mg BID PO Last administered on 06/17/18 22:58; Start 06/17/18 at 09:00 Insulin Glargine (Lantus) 15 units PRN QHS PRN SQ diabetes Last administered on 06/17/18at 23:46; Start 06/16/18 at 23:30 Insulin Human Lispro (HumaLOG) 5 units PRN TID PRN SQ Diabetes; Start 06/16/18 at 23:30 Albuterol/ Ipratropium (Duoneb) 3 ml PRN QID PRN NEB shortness of breath Last administered on 06/17/18 23:19; Start 06/16/18 at 23:30 Prochlorperazine Maleate (Compazine) 10 mg PRN Q6HRS PRN PO NAUSEA/VOMITING; Start 06/16/18 at 23:30 Sevelamer Carbonate (Renvela) 1,600 mg TIDWMEALS PO Last administered on 17:50; Start 06/17/18 at 08:00 Ticagrelor (Brilinta) 90 mg BID PO Last administered on 06/17/18at 22:58; Start 06/17/18 at 09:00 Tramadol HCl (Ultram) 50 mg PRN Q4HRS PRN PO HEADACHE Last administered on 06/18at 00:01; Start 06/16/18 at 23:30 Atorvastatin Calcium (Lipitor) 80 mg HS PO Last administered on 06/17/18 22:58 ; Start 06/17/18 at 21:00 Calcitriol (Rocaltrol) 0.25 mcg DAILY PO Last administered on 06/17/18 09:50; Start 06/17/18 at 09:00 Diltiazem HCl (Cardizem 24hr Cd) 120 mg DAILY PO Last administered on 09:50; Start 06/17/18 at 09:00 Diphenhydramine HCl (Benadryl) 50 mg PRN Q8HRS PRN PO ITCHING; Start 06/16/18 at 23:30 Erythromycin (E-Mycin) 250 mg BID PO Last administered on 06/17/18at 22:59; Start 06/17/18 at 09:00 Hydralazine HCl (Apresoline) 10 mg PRN TID PRN PO HYPERTENSION, SEE COMMENTS; Start 06/16/18 at 23:30 Lidocaine (Lidoderm) 1 patch PRN DAILY PRN TP PAIN; Start 06/16/18 at 23:30 Zolpidem Tartrate (Ambien) 5 mg QHS PO Last administered on 06/18/18at 00:01; Start 06/17/18 at 21:00 Niacin (Slo-Niacin) 250 mg BID PO Last administered on 06/17/18at 22:59; Start 06/17/18 at 09:00 Polyethylene Glycol (miraLAX PACKET) 17 gm DAILY PO Last administered on at 09:52; Start 06/17/18 at 09:00 Sodium Chloride (Saline Mist Nasal) 1 erich PRN BID PRN NS Congestion; Start at 23:30 Cefepime HCl (Maxipime) 1 gm Q24H IVP Last administered on 06/17/18at 23:00; Start 06/17/18 at 22:00 Cefepime HCl (Maxipime) 1 gm ONCE ONCE IVP Last administered on 06/17/18at 00: 15; Start 06/17/18 at 00:00; Stop 06/17/18 at 00:01; Status DC Miscellaneous (Lidoderm Patch Removal) 1 ea QHS MC ; Start 06/17/18 at 21:00 Acetaminophen (Tylenol) 650 mg 1X PRN PRN PO PRE-TRANSFUSION; Start 06/17/18 at 05:15 Diphenhydramine HCl (Benadryl Oral Elixir) 12.5 mg 1X PRN PRN PO PRE- TRANSFUSION; Start 06/17/18 at 05:15 Diphenhydramine HCl (Benadryl) 25 mg PRN 1X PRN PO PRE-TRANSFUSION; Start 06/17 at 05:15 Daptomycin 360 mg/ Sodium Chloride 50 ml @ 100 mls/hr Q48H IV Last administered on 06/17/18at 08:46; Start 06/17/18 at 07:00 Micafungin Sodium 100 mg/Dextrose 100 ml @ 100 mls/hr Q24H IV Last administered on 06/18/18at 05:55; Start 06/17/18 at 06:30 Metronidazole (Flagyl) 500 mg Q8HRS PO Last administered on 06/18/18at 05:55; Start 06/17/18 at 06:30 Oxycodone HCl (OxyCONTIN) 10 mg Q12HR PO Last administered on 06/17/18at 22:59; Start 06/17/18 at 10:00 Lactobacillus Rhamnosus (Culturelle) 1 cap BID PO Last administered on at 22:58; Start 06/17/18 at 21:00 Sodium Chloride 1,000 ml @ 1,000 mls/hr Q1H PRN IV hypotension; Start 06/17/18 at 16:51; Stop 06/17/18 at 22:50; Status DC Albumin Human 200 ml @ 200 mls/hr 1X PRN PRN IV Hypotension; Start 06/17/18 at 17:00; Stop 06/17/18 at 22:59; Status DC Sodium Chloride 1,000 ml @ 400 mls/hr Q2H30M PRN IV PATENCY; Start 06/17/18 at 16:51; Stop 06/18/18 at 04:50; Status DC Info (PHARMACY MONITORING -- do not chart) 1 each PRN DAILY PRN MC SEE COMMENTS ; Start 06/17/18 at 17:00 Info (PHARMACY MONITORING -- do not chart) 1 each PRN DAILY PRN MC SEE COMMENTS ; Start 06/17/18 at 17:00; Status UNV Active Scripts Active Brilinta (Ticagrelor) 90 Mg Tablet 90 Mg PO BID 30 Days Reported Renvela (Sevelamer Carbonate) 800 Mg Tablet 2 Tab PO TID Melatonin 3 Mg Tablet 9 Mg PO QHS Lantus Solostar (Insulin Glargine,Hum.rec.anlog) 100 Unit/1 Ml Insuln.pen 15 Unit SQ QHS PRN Duoneb 0.5-3(2.5) Mg/3 Ml (Albuterol/Ipratropium) 3 Ml Ampul.neb 3 Ml NEB QID PRN Humalog (Insulin Lispro) 100 Unit/1 Ml Vial 100 Unit SQ TID Humalog (Insulin Lispro) 100 Unit/1 Ml Vial 5 Unit SQ TID PRN Guaifenesin 600 Mg Tablet.er 600 Mg PO BID [place] Saline (Sodium Chloride) 50 Ml Bowers 1 Bowers NS BID PRN Acetaminophen 500 Mg Tablet 650 Mg PO Q6HRS PRN Morphine Sulfate Er (Morphine Sulfate) 30 Mg Tablet.er 1 Tab PO BID Aspirin 81 Mg Tab.chew 1 Tab PO DAILY Calcitriol 0.25 Mcg Capsule 1 Cap PO DAILY Pepcid (Famotidine) 20 Mg Tablet 20 Mg PO HS Niacin 250 Mg Tablet 250 Mg PO BID Miralax (Polyethylene Glycol 3350) 17 Gm Powd.pack 1 Packet PO DAILY Hydralazine Hcl 10 Mg Tablet 1 Tab PO PRN TID PRN Oxycodone Hcl Immed.release (Oxycodone Hcl) 5 Mg Tablet 2 Tab PO PRN Q4HRS PRN Ferrous Sulfate 325 Mg Tablet 1 Tab PO DAILY Diphenhydramine Hcl 50 Mg Capsule 1 Cap PO PRN Q8HRS PRN Prochlorperazine Maleate 10 Mg Tablet 1 Tab PO PRN Q6HRS PRN Lidocaine 1 Each Adh..patch 1 Each TP PRN DAILY PRN Tegretol (Carbamazepine) 200 Mg Tablet 1 Tab PO BID Tramadol Hcl 50 Mg Tablet 50 Mg PO Q4HRS PRN Carvedilol (Carvedilol) 3.125 Mg Tablet 12.5 Mg PO BID Erythromycin (Erythromycin Base) 250 Mg Capsule.dr 250 Mg PO BID Cardizem Cd (Diltiazem Hcl) 180 Mg Cap.er.24h 120 Mg PO DAILY Amiodarone Hcl 200 Mg Tablet 1 Tab PO DAILY Lipitor (Atorvastatin Calcium) 80 Mg Tablet 80 Mg PO HS Docusate Sodium 100 Mg Capsule 1 Cap PO PRN PRN Vitals/I & O Vital Sign - Last 24 Hours 06/17/18 06/17/18 06/17/18 06/17/18 09:00 09:50 09:51 09:52 Pulse 79 82 82 Resp 13 18 B/P (MAP) 133/48 (76) 133/46 133/48 Pulse Ox 100 100 O2 Delivery Room Air Room Air 06/17/18 06/17/18 06/17/18 06/17/18 10:00 11:00 12:00 12:00 Temp 99.1 99.1 Pulse 81 79 75 Resp 13 13 11 B/P (MAP) 114/42 (66) 109/57 (74) 104/44 (64) Pulse Ox 100 100 100 O2 Delivery Room Air Room Air Room Air Room Air 06/17/18 06/17/18 06/17/18 06/17/18 13:00 14:00 15:00 16:00 Pulse 76 81 80 Resp 11 16 10 B/P (MAP) 102/41 (61) 103/49 (67) 100/62 (75) Pulse Ox 100 100 100 O2 Delivery Room Air Room Air Room Air Room Air 06/17/18 06/17/18 06/17/18 06/17/18 16:00 16:45 17:00 17:00 Temp 98.9 98.9 Pulse 79 78 80 79 Resp 11 11 11 B/P (MAP) 102/52 (69) 92/55 92/55 (67) Pulse Ox 100 100 100 O2 Delivery Room Air Room Air Room Air 06/17/18 06/17/18 06/17/18 06/17/18 17:15 17:25 17:30 18:00 Temp 98.0 98.0 Pulse 70 74 70 69 Resp 13 11 16 11 B/P (MAP) 116/51 (72) 116/51 119/39 (65) 120/50 (73) Pulse Ox 100 100 100 O2 Delivery Room Air Room Air Room Air 06/17/18 06/17/18 06/17/18 06/17/18 19:00 20:00 20:00 21:00 Temp 98.4 98.4 Pulse 72 80 128 Resp 13 13 16 B/P (MAP) 119/37 (64) 96/63 (74) 96/43 (60) Pulse Ox 100 100 100 O2 Delivery Room Air Room Air Room Air Room Air 06/17/18 06/17/18 06/17/18 06/17/18 22:00 22:59 23:00 23:19 Pulse 98 69 Resp 14 10 9 B/P (MAP) 110/55 (73) 96/45 (62) Pulse Ox 100 100 100 100 O2 Delivery Room Air Room Air Room Air Room Air O2 Flow Rate 2.0 06/17/18 06/17/18 06/18/18 06/18/18 23:59 23:59 00:01 01:00 Temp 98.5 98.5 Pulse 97 93 Resp 9 8 9 B/P (MAP) 115/50 (71) 97/55 (69) Pulse Ox 100 100 100 O2 Delivery Room Air Room Air Room Air Room Air O2 Flow Rate 2.0 06/18/18 06/18/18 06/18/18 06/18/18 01:01 02:00 02:59 03:00 Pulse 92 97 Resp 12 9 12 9 B/P (MAP) 113/59 (77) 99/43 (61) Pulse Ox 100 100 100 100 O2 Delivery Room Air Room Air Room Air Room Air O2 Flow Rate 2.0 2.0 06/18/18 06/18/18 06/18/18 06/18/18 04:00 04:00 05:00 06:00 Temp 98.4 98.4 Pulse 122 84 100 Resp 9 10 10 B/P (MAP) 112/59 (76) 110/53 (72) 114/64 (81) Pulse Ox 100 100 100 O2 Delivery Room Air Room Air Room Air Room Air 06/18/18 07:00 Pulse 87 Resp 11 B/P (MAP) 122/87 (99) Pulse Ox 100 O2 Delivery Room Air Intake and Output 06/17/18 06/17/18 06/18/18 14:59 22:59 06:59 Intake Total 390 ml 200 ml 320 ml Output Total 0 ml 0 ml 0 ml Balance 390 ml 200 ml 320 ml Nutrition Consultation Dietary Evaluation: Recommendations by RD: Increase Calorie Intake, Protein supplementation Comments: REC liberalize diet to regular to promote/encourage increased PO intake REC Rian BID (fruit punch) REC MVI - wound healing Expected Outcomes/Goals: PO intake to meet >75% est needs Interpretation of weight loss: >7.5% in 3 months Malnutrition Findings: Weight Status: Appropriate RALPH QUINTERO MD Jun 18, 2018 08:30
[2018-06-18] MEDS: INSULIN LISPRO 300 UNITS/3 ML INSULN.PEN. SQ SCH ×3 (08:39→17:13)
[2018-06-18] MEDS: HYDROcodone/APAP 5/325MG 1 TAB TABLET PO PRN ×2 (08:46→17:04)
[2018-06-18] MEDS: ASPIRIN CHEWABLE 81 MG TABLET. PO SCH (08:46)
[2018-06-18] MEDS: POLYETHYLENE GLYCOL 3350 17 GM PACKET. PO SCH (09:00)
[2018-06-18] MEDS: LACTOBACILLUS RHAMNOSUS GG 1 CAPSULE. PO SCH ×2 (09:41→20:44)
[2018-06-18] MEDS: NIACIN ER 250 MG TABLET.ER PO SCH ×2 (09:41→20:45)
[2018-06-18] MEDS: CALCITRIOL 0.25 MCG CAPSULE. PO SCH (09:41)
[2018-06-18] MEDS: oxyCODONE ER 10 MG TAB.ER.12H PO SCH ×2 (09:42→20:45)
[2018-06-18] MEDS: SEVELAMER CARBONATE 800 MG TABLET. PO SCH ×3 (09:43→17:02)
[2018-06-18] MEDS: ERYTHROMYCIN BASE 250 MG TABLET PO SCH ×2 (09:43→20:45)
[2018-06-18] MEDS: carBAMazepine 200 MG TABLET PO SCH ×2 (09:43→20:44)
[2018-06-18] MEDS: TICAGRELOR 90 MG TABLET. PO SCH ×2 (09:43→20:45)
[2018-06-18] MEDS: FERROUS SULFATE 325 MG TABLET. PO SCH (09:43)
--- NOTE | 2018-06-18 10:04 | PDOC ---
SUBJECTIVE ROS States back is hurting OBJECTIVE Vital Signs Vital Signs Date Time Temp Pulse Resp B/P (MAP) Pulse Ox O2 Delivery O2 Flow Rate FiO2 06/18/18 09:42 15 98 Room Air 06/18/18 09:00 92 117/56 (76) 06/18/18 08:00 98.0 98.0 06/18/18 02:59 2.0 I & 0 Intake and Output 06/18/18 06:59 Intake Total 910 ml Output Total 0 ml Balance 910 ml Intake Oral 760 ml IV Total 150 ml Output Urine Total 0 ml PHYSICAL EXAM Physical Exam General: Alert, Cooperative, NAD HEENT: Mucous membr. moist/pink Neck Supple Lungs: CTA ant, Non labored Heart: irregularly irregular Abdomen: Soft, No tenderness, PD cath in place Extremities:LLE BKA stump, right foot chronic edema, changes of CVI Rt AV shunt Skin: No rash Neuro: Grossly normal - No hartley DIAGNOSIS/ASSESSMENT Assessment & Plan ESRD - HD on TTS E-Lytes and acid base stable, Vol/Pulm status stable Access- Rt UE AV graft Has PD cath, she refuses to remove it, she states she will go on PD once she is home Dialyzed yest, currently no indication today Anemia- Hgb 7, s/p PRBC x1 Stable Sepsis/ Fever. ID following Multiple wounds Rt UE Hematoma - Vascular consulted, Rt US done Functioning patent right AV graft, Continue to be monitor PVD- s/p right femoropopliteal bypass, Sartorius muscle flap, right groin debridement , right toe amputations, left BKA. Dw Pt and RN at bedside COMMENT/RELEVANT DATA Meds Current Medications Medications (Trade) Dose Ordered Sig/Martin Start Time Stop Time Status Last Admin Dose Admin Acetaminophen (Tylenol) 650 mg 1X PRN PRN 06/17/18 05:15 Acetaminophen/ Hydrocodone Bitart (Lortab 5/325) 1 tab PRN Q6HRS PRN 06/16/18 19:30 06/18/18 08:46 1 TAB Albumin Human 200 ml @ 200 mls/hr 1X PRN PRN 06/17/18 17:00 06/17/18 22:59 DC Albuterol/ Ipratropium (Duoneb) 3 ml PRN QID PRN 06/16/18 23:30 06/17/18 23:19 3 ML Amiodarone HCl (Cordarone) 200 mg DAILY 06/17/18 09:00 06/17/18 09:51 200 MG Aspirin (Children'S Aspirin) 81 mg DAILYWBKFT 06/17/18 08:00 06/18/18 08:46 81 MG Atorvastatin Calcium (Lipitor) 80 mg HS 06/17/18 21:00 06/17/18 22:58 80 MG Calcitriol (Rocaltrol) 0.25 mcg DAILY 06/17/18 09:00 06/18/18 09:41 0.25 MCG Carbamazepine (TEGretol) 200 mg BID 06/17/18 09:00 06/18/18 09:43 200 MG Carvedilol (Coreg) 12.5 mg BIDWMEALS 06/18/18 17:00 Cefepime HCl (Maxipime) 1 gm ONCE ONCE 06/17/18 00:00 06/17/18 00:01 DC 06/17/18 00:15 1 GM Daptomycin 360 mg/ Sodium Chloride 50 ml @ 100 mls/hr Q48H 06/17/18 07:00 06/17/18 08:46 100 MLS/HR Dextrose (Dextrose 50%-Water Syringe) 12.5 gm PRN Q15MIN PRN 06/16/18 19:30 Diltiazem HCl (Cardizem 24hr Cd) 120 mg DAILY 06/17/18 09:00 06/17/18 09:50 120 MG Diphenhydramine HCl (Benadryl Oral Elixir) 12.5 mg 1X PRN PRN 06/17/18 05:15 Diphenhydramine HCl (Benadryl) 25 mg PRN 1X PRN 06/17/18 05:15 Docusate Sodium (Colace) 100 mg PRN BID PRN 06/16/18 23:30 Erythromycin (E-Mycin) 250 mg BID 06/17/18 09:00 06/18/18 09:43 250 MG Famotidine (Pepcid) 20 mg Q48H 06/19/18 21:00 Ferrous Sulfate (Feosol) 325 mg DAILY 06/17/18 09:00 06/18/18 09:43 325 MG Guaifenesin (Mucinex) 600 mg BID 06/17/18 09:00 06/18/18 09:43 600 MG Hydralazine HCl (Apresoline) 10 mg PRN TID PRN 06/16/18 23:30 Hydromorphone HCl (Dilaudid) 1 mg PRN Q3HRS PRN 06/16/18 19:30 06/16/18 19:37 1 MG Info (PHARMACY MONITORING -- do not chart) 1 each PRN DAILY PRN 06/17/18 17:00 UNV Insulin Glargine (Lantus) 15 units PRN QHS PRN 06/16/18 23:30 06/17/18 23:46 10 UNITS Insulin Human Lispro (HumaLOG) 5 units PRN TID PRN 06/16/18 23:30 Lactobacillus Rhamnosus (Culturelle) 1 cap BID 06/17/18 21:00 06/18/18 09:41 1 CAP Levofloxacin/ Dextrose 100 ml @ 100 mls/hr 1X ONCE 06/16/18 16:45 06/16/18 17:44 DC 06/16/18 17:20 100 MLS/HR Lidocaine (Lidoderm) 1 patch PRN DAILY PRN 06/16/18 23:30 Methylprednisolone Sodium Succinate (SOLU-Medrol 125MG VIAL) 125 mg 1X ONCE 06/16/18 16:00 06/16/18 16:01 DC 06/16/18 17:20 125 MG Metronidazole (Flagyl) 500 mg Q8HRS 06/17/18 06:30 06/18/18 05:55 500 MG Micafungin Sodium 100 mg/Dextrose 100 ml @ 100 mls/hr Q24H 06/17/18 06:30 06/18/18 05:55 100 MLS/HR Miscellaneous (Lidoderm Patch Removal) 1 ea QHS 06/17/18 21:00 Niacin (Slo-Niacin) 250 mg BID 06/17/18 09:00 06/18/18 09:41 250 MG Ondansetron HCl (Zofran) 4 mg PRN Q8HRS PRN 06/16/18 17:15 06/17/18 17:14 DC Oxycodone HCl (OxyCONTIN) 10 mg Q12HR 06/17/18 10:00 06/18/18 09:42 10 MG Polyethylene Glycol (miraLAX PACKET) 17 gm DAILY 06/17/18 09:00 06/17/18 09:52 17 GM Prochlorperazine Maleate (Compazine) 10 mg PRN Q6HRS PRN 06/16/18 23:30 Sevelamer Carbonate (Renvela) 1,600 mg TIDWMEALS 06/17/18 08:00 06/18/18 09:43 1,600 MG Sodium Chloride 1,000 ml @ 400 mls/hr Q2H30M PRN 06/17/18 16:51 06/18/18 04:50 DC Sodium Chloride (Saline Mist Nasal) 1 erich PRN BID PRN 06/16/18 23:30 Ticagrelor (Brilinta) 90 mg BID 06/17/18 09:00 06/18/18 09:43 90 MG Tramadol HCl (Ultram) 50 mg PRN Q4HRS PRN 06/16/18 23:30 06/18/18 00:01 50 MG Vancomycin HCl 1.75 gm/Sodium Chloride 500 ml @ 250 mls/hr 1X ONCE 06/16/18 17:45 06/16/18 19:44 DC 06/16/18 17:19 250 MLS/HR Zolpidem Tartrate (Ambien) 5 mg QHS 06/17/18 21:00 06/18/18 00:01 5 MG Lab Laboratory Tests Test 06/17/18 12:17 06/17/18 23:02 06/18/18 05:30 Glucose (Fingerstick) 255 mg/dL (70-99) 286 mg/dL (70-99) White Blood Count 27.2 x10^3/uL (4.0-11.0) Red Blood Count 2.47 x10^6/uL (3.50-5.40) Hemoglobin 7.8 g/dL (12.0-15.5) Hematocrit 24.2 % (36.0-47.0) Mean Corpuscular Volume 98 fL (79-100) Mean Corpuscular Hemoglobin 32 pg (25-35) Mean Corpuscular Hemoglobin Concent 32 g/dL (31-37) Red Cell Distribution Width 19.6 % (11.5-14.5) Platelet Count 250 x10^3/uL (140-400) Neutrophils (%) (Auto) 89 % (31-73) Lymphocytes (%) (Auto) 3 % (24-48) Monocytes (%) (Auto) 7 % (0-9) Eosinophils (%) (Auto) 0 % (0-3) Basophils (%) (Auto) 0 % (0-3) Neutrophils # (Auto) 24.4 x10^3uL (1.8-7.7) Lymphocytes # (Auto) 0.9 x10^3/uL (1.0-4.8) Monocytes # (Auto) 1.9 x10^3/uL (0.0-1.1) Eosinophils # (Auto) 0.0 x10^3/uL (0.0-0.7) Basophils # (Auto) 0.0 x10^3/uL (0.0-0.2) Sodium Level 138 mmol/L (136-145) Potassium Level 4.2 mmol/L (3.5-5.1) Chloride Level 97 mmol/L (98-107) Carbon Dioxide Level 30 mmol/L (21-32) Anion Gap 11 (6-14) Blood Urea Nitrogen 45 mg/dL (7-20) Creatinine 3.4 mg/dL (0.6-1.0) Estimated GFR (Cockcroft-Gault) 14.2 BUN/Creatinine Ratio 13 (6-20) Glucose Level 259 mg/dL (70-99) Calcium Level 8.8 mg/dL (8.5-10.1) Total Bilirubin 0.8 mg/dL (0.2-1.0) Aspartate Amino Transf (AST/SGOT) 10 U/L (15-37) Alanine Aminotransferase (ALT/SGPT) 8 U/L (14-59) Alkaline Phosphatase 100 U/L (46-116) Total Protein 6.5 g/dL (6.4-8.2) Albumin 2.4 g/dL (3.4-5.0) Albumin/Globulin Ratio 0.6 (1.0-1.7) Results All relevant outside records, renal labs, imaging studies, telemetry/EKG's were reviewed. HEMANT SCHAEFER MD Jun 18, 2018 10:04
--- NOTE | 2018-06-18 10:47 | PDOC ---
SURGICAL PROGRESS NOTE Subjective resting back pain Vital Signs Vital Signs Date Time Temp Pulse Resp B/P (MAP) Pulse Ox O2 Delivery O2 Flow Rate FiO2 06/18/18 10:00 77 11 89/53 (65) 100 Room Air 06/18/18 08:00 98.0 98.0 06/18/18 02:59 2.0 I&O Intake and Output 06/18/18 07:00 Intake Total 910 ml Output Total 0 ml Balance 910 ml Intake Oral 760 ml IV Total 150 ml Output Urine Total 0 ml General: Alert, Oriented X3, Cooperative, No acute distress Abdomen: Soft Labs Laboratory Tests Test 06/16/18 14:00 06/16/18 14:40 06/16/18 17:36 06/16/18 19:15 White Blood Count 26.4 x10^3/uL (4.0-11.0) Red Blood Count 2.44 x10^6/uL (3.50-5.40) Hemoglobin 7.9 g/dL (12.0-15.5) Hematocrit 24.6 % (36.0-47.0) Mean Corpuscular Volume 101 fL (79-100) Mean Corpuscular Hemoglobin 32 pg (25-35) Mean Corpuscular Hemoglobin Concent 32 g/dL (31-37) Red Cell Distribution Width 17.1 % (11.5-14.5) Platelet Count 316 x10^3/uL (140-400) Neutrophils (%) (Auto) 97 % (31-73) Lymphocytes (%) (Auto) 1 % (24-48) Monocytes (%) (Auto) 2 % (0-9) Eosinophils (%) (Auto) 0 % (0-3) Basophils (%) (Auto) 0 % (0-3) Neutrophils # (Auto) 25.5 x10^3uL (1.8-7.7) Lymphocytes # (Auto) 0.2 x10^3/uL (1.0-4.8) Monocytes # (Auto) 0.6 x10^3/uL (0.0-1.1) Eosinophils # (Auto) 0.0 x10^3/uL (0.0-0.7) Basophils # (Auto) 0.1 x10^3/uL (0.0-0.2) Segmented Neutrophils % 70 % (35-66) Band Neutrophils % 21 % (0-9) Lymphocytes % 3 % (24-48) Monocytes % 5 % (0-10) Metamyelocytes % 1 % (0-0) Smudge Cells Present Toxic Vacuolation Slight Platelet Estimate Adequate (ADEQUATE) Anisocytosis Slight Prothrombin Time 15.4 SEC (11.7-14.0) Prothromb Time International Ratio 1.3 (0.8-1.1) Activated Partial Thromboplast Time 34 SEC (24-38) Lactic Acid Level 1.3 mmol/L (0.4-2.0) 1.7 mmol/L (0.4-2.0) O2 Saturation 96 % (92-99) Arterial Blood pH 7.46 (7.35-7.45) Arterial Blood pCO2 at Patient Temp 36 mmHg (35-46) Arterial Blood pO2 at Patient Temp 87 mmHg (75-108) Arterial Blood HCO3 25 mmol/L (21-28) Arterial Blood Base Excess 2 mmol/L (-3-3) FiO2 28 Sodium Level 138 mmol/L (136-145) Potassium Level 4.7 mmol/L (3.5-5.1) Chloride Level 97 mmol/L (98-107) Carbon Dioxide Level 27 mmol/L (21-32) Anion Gap 14 (6-14) Blood Urea Nitrogen 58 mg/dL (7-20) Creatinine 5.3 mg/dL (0.6-1.0) Estimated GFR (Cockcroft-Gault) 8.5 BUN/Creatinine Ratio 11 (6-20) Glucose Level 132 mg/dL (70-99) Calcium Level 9.0 mg/dL (8.5-10.1) Magnesium Level 1.9 mg/dL (1.8-2.4) Total Bilirubin 0.9 mg/dL (0.2-1.0) Aspartate Amino Transf (AST/SGOT) 12 U/L (15-37) Alanine Aminotransferase (ALT/SGPT) 9 U/L (14-59) Alkaline Phosphatase 114 U/L (46-116) Ammonia 24 mcmol/L (11-34) Troponin I Quantitative 0.158 ng/mL (0.000-0.055) NE-Yqn-U-Type Natriuretic Peptide > 99251 pg/mL (0-124) Total Protein 6.8 g/dL (6.4-8.2) Albumin 2.6 g/dL (3.4-5.0) Albumin/Globulin Ratio 0.6 (1.0-1.7) Influenza Type A Antigen Negative (NEGATIVE) Influenza Type B Antigen Negative (NEGATIVE) Test 06/16/18 22:00 06/16/18 22:13 06/17/18 04:10 06/17/18 08:40 Nasal Screen MRSA (PCR) Negative (Negative) Glucose (Fingerstick) 162 mg/dL (70-99) 220 mg/dL (70-99) White Blood Count 37.5 x10^3/uL (4.0-11.0) Red Blood Count 2.22 x10^6/uL (3.50-5.40) Hemoglobin 7.0 g/dL (12.0-15.5) Hematocrit 22.6 % (36.0-47.0) Mean Corpuscular Volume 102 fL (79-100) Mean Corpuscular Hemoglobin 32 pg (25-35) Mean Corpuscular Hemoglobin Concent 31 g/dL (31-37) Red Cell Distribution Width 17.5 % (11.5-14.5) Platelet Count 277 x10^3/uL (140-400) Neutrophils (%) (Auto) 96 % (31-73) Lymphocytes (%) (Auto) 2 % (24-48) Monocytes (%) (Auto) 3 % (0-9) Eosinophils (%) (Auto) 0 % (0-3) Basophils (%) (Auto) 0 % (0-3) Neutrophils # (Auto) 35.8 x10^3uL (1.8-7.7) Lymphocytes # (Auto) 0.7 x10^3/uL (1.0-4.8) Monocytes # (Auto) 1.0 x10^3/uL (0.0-1.1) Eosinophils # (Auto) 0.0 x10^3/uL (0.0-0.7) Basophils # (Auto) 0.0 x10^3/uL (0.0-0.2) Sodium Level 139 mmol/L (136-145) Potassium Level 5.1 mmol/L (3.5-5.1) Chloride Level 98 mmol/L (98-107) Carbon Dioxide Level 24 mmol/L (21-32) Anion Gap 17 (6-14) Blood Urea Nitrogen 67 mg/dL (7-20) Creatinine 6.0 mg/dL (0.6-1.0) Estimated GFR (Cockcroft-Gault) 7.4 Glucose Level 194 mg/dL (70-99) Calcium Level 9.2 mg/dL (8.5-10.1) Test 06/17/18 12:17 06/17/18 23:02 06/18/18 05:30 Glucose (Fingerstick) 255 mg/dL (70-99) 286 mg/dL (70-99) White Blood Count 27.2 x10^3/uL (4.0-11.0) Red Blood Count 2.47 x10^6/uL (3.50-5.40) Hemoglobin 7.8 g/dL (12.0-15.5) Hematocrit 24.2 % (36.0-47.0) Mean Corpuscular Volume 98 fL (79-100) Mean Corpuscular Hemoglobin 32 pg (25-35) Mean Corpuscular Hemoglobin Concent 32 g/dL (31-37) Red Cell Distribution Width 19.6 % (11.5-14.5) Platelet Count 250 x10^3/uL (140-400) Neutrophils (%) (Auto) 89 % (31-73) Lymphocytes (%) (Auto) 3 % (24-48) Monocytes (%) (Auto) 7 % (0-9) Eosinophils (%) (Auto) 0 % (0-3) Basophils (%) (Auto) 0 % (0-3) Neutrophils # (Auto) 24.4 x10^3uL (1.8-7.7) Lymphocytes # (Auto) 0.9 x10^3/uL (1.0-4.8) Monocytes # (Auto) 1.9 x10^3/uL (0.0-1.1) Eosinophils # (Auto) 0.0 x10^3/uL (0.0-0.7) Basophils # (Auto) 0.0 x10^3/uL (0.0-0.2) Sodium Level 138 mmol/L (136-145) Potassium Level 4.2 mmol/L (3.5-5.1) Chloride Level 97 mmol/L (98-107) Carbon Dioxide Level 30 mmol/L (21-32) Anion Gap 11 (6-14) Blood Urea Nitrogen 45 mg/dL (7-20) Creatinine 3.4 mg/dL (0.6-1.0) Estimated GFR (Cockcroft-Gault) 14.2 BUN/Creatinine Ratio 13 (6-20) Glucose Level 259 mg/dL (70-99) Calcium Level 8.8 mg/dL (8.5-10.1) Total Bilirubin 0.8 mg/dL (0.2-1.0) Aspartate Amino Transf (AST/SGOT) 10 U/L (15-37) Alanine Aminotransferase (ALT/SGPT) 8 U/L (14-59) Alkaline Phosphatase 100 U/L (46-116) Total Protein 6.5 g/dL (6.4-8.2) Albumin 2.4 g/dL (3.4-5.0) Albumin/Globulin Ratio 0.6 (1.0-1.7) Laboratory Tests Test 06/17/18 12:17 06/17/18 23:02 06/18/18 05:30 Glucose (Fingerstick) 255 mg/dL (70-99) 286 mg/dL (70-99) White Blood Count 27.2 x10^3/uL (4.0-11.0) Red Blood Count 2.47 x10^6/uL (3.50-5.40) Hemoglobin 7.8 g/dL (12.0-15.5) Hematocrit 24.2 % (36.0-47.0) Mean Corpuscular Volume 98 fL (79-100) Mean Corpuscular Hemoglobin 32 pg (25-35) Mean Corpuscular Hemoglobin Concent 32 g/dL (31-37) Red Cell Distribution Width 19.6 % (11.5-14.5) Platelet Count 250 x10^3/uL (140-400) Neutrophils (%) (Auto) 89 % (31-73) Lymphocytes (%) (Auto) 3 % (24-48) Monocytes (%) (Auto) 7 % (0-9) Eosinophils (%) (Auto) 0 % (0-3) Basophils (%) (Auto) 0 % (0-3) Neutrophils # (Auto) 24.4 x10^3uL (1.8-7.7) Lymphocytes # (Auto) 0.9 x10^3/uL (1.0-4.8) Monocytes # (Auto) 1.9 x10^3/uL (0.0-1.1) Eosinophils # (Auto) 0.0 x10^3/uL (0.0-0.7) Basophils # (Auto) 0.0 x10^3/uL (0.0-0.2) Sodium Level 138 mmol/L (136-145) Potassium Level 4.2 mmol/L (3.5-5.1) Chloride Level 97 mmol/L (98-107) Carbon Dioxide Level 30 mmol/L (21-32) Anion Gap 11 (6-14) Blood Urea Nitrogen 45 mg/dL (7-20) Creatinine 3.4 mg/dL (0.6-1.0) Estimated GFR (Cockcroft-Gault) 14.2 BUN/Creatinine Ratio 13 (6-20) Glucose Level 259 mg/dL (70-99) Calcium Level 8.8 mg/dL (8.5-10.1) Total Bilirubin 0.8 mg/dL (0.2-1.0) Aspartate Amino Transf (AST/SGOT) 10 U/L (15-37) Alanine Aminotransferase (ALT/SGPT) 8 U/L (14-59) Alkaline Phosphatase 100 U/L (46-116) Total Protein 6.5 g/dL (6.4-8.2) Albumin 2.4 g/dL (3.4-5.0) Albumin/Globulin Ratio 0.6 (1.0-1.7) Problem List Problems Medical Problems: (1) End-stage renal disease on hemodialysis Status: Acute (2) Sepsis Status: Acute Assessment/Plan continue wound care MARIS MI APRN Jun 18, 2018 10:47
[2018-06-18] MEDS: AMIODARONE HCL 200 MG TABLET. PO SCH (11:35)
[2018-06-18] MEDS: CARVEDILOL 12.5 MG TABLET. PO SCH (16:48)
--- NOTE | 2018-06-18 17:27 | NUR ---
Received pt as transfer from ICU to room 519. Arrived per bed at 1630. Positioned for comfort and tele applied
[2018-06-18] MEDS: ATORVASTATIN CALCIUM 40 MG TABLET. PO SCH (20:44)
[2018-06-18] MEDS: PATCH REMOVAL. MC SCH (20:46)
[2018-06-18] MEDS: CEFEPIME HCL IV Push 1 GM VIAL. IVP SCH (20:46)
[2018-06-18] MEDS: oxyCODONE/APAP 10/325 1 TAB TABLET PO PRN (21:28)
[2018-06-19] MEDS: oxyCODONE/APAP 10/325 1 TAB TABLET PO PRN ×4 (03:00→17:26)
[2018-06-19 03:07] VITALS: BP 113/63
[2018-06-19 03:59] LABS: BASO % 0 % (0-3); EOS # 0.1 x10^3/uL (0.0-0.7); EOS % 0 % (0-3); HEMATOCRIT 24.2 % (36.0-47.0); HEMOGLOBIN 7.7 g/dL (12.0-15.5); LYMPH # 1.4 x10^3/uL (1.0-4.8); LYMPH % 7 % (24-48); MEAN CORPUSCULAR HEMOGLOBIN 31 pg (25-35); MEAN CORPUSCULAR HGB CONC 32 g/dL (31-37); MEAN CORPUSCULAR VOLUME 98 fL (79-100); MONO # 1.3 x10^3/uL (0.0-1.1); MONO % 7 % (0-9); NEUT # 16.9 x10^3uL (1.8-7.7); NEUT % 86 % (31-73); PLATELET COUNT 264 x10^3/uL (140-400); RED BLOOD COUNT 2.47 x10^6/uL (3.50-5.40); WHITE BLOOD COUNT 19.7 x10^3/uL (4.0-11.0)
--- NOTE | 2018-06-19 04:50 | NUR ---
Pt continue to refused to be turn q2hrs in bed. Most of the time when staffs go in and try to turn pt, pt refused and stated that pt is comfortable the way she is and do not want to be bother. RN continue to educate pt, but pt continue to refused. Will continue to monitor pt.
[2018-06-19] MEDS: metroNIDAZOLE 500 MG TABLET PO SCH ×3 (05:49→21:07)
[2018-06-19] MEDS: MICAFUNGIN 100 MG in IV DEXTROSE 5% 100ML 100 ML IV SCH (05:50)
[2018-06-19 07:00] VITALS: BP 137/57
[2018-06-19] MEDS ORDERED: IV NORMAL SALINE 1000ML BAG 1,000 ML IV PRN ×2 (07:02)
[2018-06-19] MEDS ORDERED: DIALYSIS PATIENT. MC PRN ×2 (07:15)
[2018-06-19] MEDS ORDERED: 0.9 % SODIUM CHLORIDE 10 ML DISP.SYRIN. IV PRN ×2 (07:15)
[2018-06-19] MEDS: SEVELAMER CARBONATE 800 MG TABLET. PO SCH ×4 (08:00→17:24)
[2018-06-19] MEDS: INSULIN LISPRO 300 UNITS/3 ML INSULN.PEN. SQ SCH ×3 (08:00→16:42)
[2018-06-19] MEDS: FERROUS SULFATE 325 MG TABLET. PO SCH (08:42)
[2018-06-19] MEDS: AMIODARONE HCL 200 MG TABLET. PO SCH (08:43)
[2018-06-19] MEDS: CARVEDILOL 12.5 MG TABLET. PO SCH ×2 (08:43→17:24)
[2018-06-19] MEDS: LACTOBACILLUS RHAMNOSUS GG 1 CAPSULE. PO SCH ×2 (08:43→21:06)
[2018-06-19] MEDS: carBAMazepine 200 MG TABLET PO SCH ×2 (08:43→21:07)
[2018-06-19] MEDS: CALCITRIOL 0.25 MCG CAPSULE. PO SCH (08:43)
[2018-06-19] MEDS: TICAGRELOR 90 MG TABLET. PO SCH ×2 (08:43→21:06)
[2018-06-19] MEDS: ASPIRIN CHEWABLE 81 MG TABLET. PO SCH (08:43)
[2018-06-19] MEDS: NIACIN ER 250 MG TABLET.ER PO SCH ×2 (08:44→21:07)
[2018-06-19] MEDS: ERYTHROMYCIN BASE 250 MG TABLET PO SCH ×2 (08:44→21:06)
[2018-06-19] MEDS: POLYETHYLENE GLYCOL 3350 17 GM PACKET. PO SCH (08:44)
[2018-06-19] MEDS: DAPTOmycin (GENERIC) IVPB 360 MG in IV NORMAL SALINE 50ML 50 ML IV SCH (08:45)
[2018-06-19] MEDS ORDERED: MORPHINE ER 15 MG TABLET.ER PO SCH (09:00)
--- NOTE | 2018-06-19 10:21 | PDOC ---
Infectious Disease Note Subjective Subjective Tired Refused dialysis this morning, says not needed as she went yesterday No F/C/S/SOA/Rash/N/V/D ROS ROS per HPI otherwise neg Vital Sign Vital Signs Vital Signs Date Time Temp Pulse Resp B/P (MAP) Pulse Ox O2 Delivery O2 Flow Rate FiO2 06/19/18 09:02 Room Air 06/19/18 08:43 97 137/57 06/19/18 07:00 97.8 18 100 97.8 Physical Exam PHYSICAL EXAM GENERAL; Propped up in bed, resting quietly. Sitting up in bed HEENT: Normal conjunctivae. Oral cavity, pharynx was dry - clear. NECK: Supple, no JVD. LUNGS: Decreased in the bases. HEART: S1, S2. 1/6 murmur. ABDOMEN: Soft, nontender, no guarding or rebound. PD catheter is in place. EXTREMITIES: Without clubbing, cyanosis. Her right foot has chronic edema and some chronic venous changes with some dry areas. Her right groin area is without signs of complications. Right leg has a dry area of wound that is dressed SKIN: Without signs of generalized rash. PSYCHIATRIC: Affect is flat. NEUROLOGIC: Arouses to name, responds appropriately RUE questionable hematoma associated with it. Labs Lab Laboratory Tests Test 06/18/18 13:05 06/18/18 16:39 06/18/18 20:24 06/19/18 03:30 Glucose (Fingerstick) 191 mg/dL (70-99) 161 mg/dL (70-99) 161 mg/dL (70-99) White Blood Count 19.7 x10^3/uL (4.0-11.0) Red Blood Count 2.47 x10^6/uL (3.50-5.40) Hemoglobin 7.7 g/dL (12.0-15.5) Hematocrit 24.2 % (36.0-47.0) Mean Corpuscular Volume 98 fL (79-100) Mean Corpuscular Hemoglobin 31 pg (25-35) Mean Corpuscular Hemoglobin Concent 32 g/dL (31-37) Red Cell Distribution Width 19.0 % (11.5-14.5) Platelet Count 264 x10^3/uL (140-400) Neutrophils (%) (Auto) 86 % (31-73) Lymphocytes (%) (Auto) 7 % (24-48) Monocytes (%) (Auto) 7 % (0-9) Eosinophils (%) (Auto) 0 % (0-3) Basophils (%) (Auto) 0 % (0-3) Neutrophils # (Auto) 16.9 x10^3uL (1.8-7.7) Lymphocytes # (Auto) 1.4 x10^3/uL (1.0-4.8) Monocytes # (Auto) 1.3 x10^3/uL (0.0-1.1) Eosinophils # (Auto) 0.1 x10^3/uL (0.0-0.7) Basophils # (Auto) 0.0 x10^3/uL (0.0-0.2) Test 06/19/18 08:22 Glucose (Fingerstick) 106 mg/dL (70-99) IMPRESSION: 1. Patent AV fistula/graft in the right upper arm. 2. Avascular, heterogeneous hypoechoic mass in the right upper arm most compatible with a hematoma. 3. High peak systolic velocity in the proximal right subclavian artery raising the possibility of some degree of stenosis at its origin. Micro 06/16. BLOOD CULTURE Final GRAM POSITIVE COCCI 1 SET DRAWN, 2 OF 2 POSITIVE Objective Assessment Sepsis - POA 06/16/2018 - 05/29 GPC bacteremia from 06/16 Fever - better Abx allergies Leukocytosis -s/p Solu-Medrol - better (also s/p PRBCs) Multiple wounds - Gen surg has evaluated and now wound care Anemia s/p 1 unit PRBCs 06/17 Encephalopathy - answers questions appropriately when awakened CKD on PD/HD RUE hematoma about the fistula on US Plan Plan of Care Cont Dapto - (Ho VRE/? MRSA), cefepime, Flagyl and micafungin - taper soon Probiotics F/u labs and cults Cont wound care per WC team Need to off load Contact isolation Attending Co-Sign Attending Co-Sign The patient was seen and interviewed as well as examined at the bedside. The chart was reviewed. The case was discussed. Agree with the plan of care. KYLEIGH QUEEN APRN Jun 19, 2018 10:21 ALBERTO NAVA MD Jun 19, 2018 14:29
[2018-06-19 11:00] VITALS: BP 110/52
--- NOTE | 2018-06-19 12:08 | PDOC ---
SUBJECTIVE ROS Follow-up for ESRD on hemodialysis Thursday Patient refused dialysis today. No recent labs. Appetite remains poor. Edema is significantly improved CVS: no Orthopnea, no CP RESP: no SOB, no SAVAGE GI: no Nausea, no Vomiting : no Dysuria, no Urgency OBJECTIVE Vital Signs Vital Signs Date Time Temp Pulse Resp B/P (MAP) Pulse Ox O2 Delivery O2 Flow Rate FiO2 06/19/18 11:38 Room Air 06/19/18 11:00 97.8 86 18 110/52 (71) 100 97.8 I & 0 Intake and Output 06/19/18 06:59 Intake Total 120 ml Output Total 0 ml Balance 120 ml Intake Oral 120 ml Output Urine Total 0 ml PHYSICAL EXAM Physical Exam GEN: Awake, Oriented x 3, In no distress EYES: Vision Unchanged, Conjunctiva Normal EN: No EN Drainage, Mucous Membranes moist NECK: no JVD, + JVP, Supple, no Thyromegaly CVS: S1S2, + Murmur, No Gallop, No Rub,tr Edema RESP: no Rales, no Rhonchi,no Acc. Muscle Use GI: BS + ve, NO Bruit, Non Tender, Non Distended : no CVA tenderness, no Suprapubic Tenderness DIAGNOSIS/ASSESSMENT Assessment & Plan ESRD: Patient declined dialysis as scheduled for today on her regular Thursday schedule. She does not appear to be grossly edematous or short of breath per se at this time no labs are available at this time. She claims she does not need to be sucked dry anymore ANEMIA; Aranap as ordered, Transfuse with next HD as needed especially if hemoglobin drops below 7 HTN: Current BP meds as reviewed. See orders for changes. BONE & MINERAL: No recent phosphate levels available hence ordered for Thursday. Alter binder regimen based on same. By mouth intake remains poor Hematoma around AV graft: We'll allow her to rest over the weekend especially if she does not need dialysis emergently. Sepsis/ Fever: ID following defer antibiotics to their expertise Multiple wounds and associated failure to thrive. Encouraged oral intake Discussed Plan of Care with family [] at bedside [] over the phone COMMENT/RELEVANT DATA Meds Current Medications Medications (Trade) Dose Ordered Sig/Martin Start Time Stop Time Status Last Admin Dose Admin Acetaminophen (Tylenol) 650 mg 1X PRN PRN 06/17/18 05:15 Acetaminophen/ Hydrocodone Bitart (Lortab 5/325) 1 tab PRN Q6HRS PRN 06/16/18 19:30 06/18/18 21:10 DC 06/18/18 17:04 1 TAB Albumin Human 200 ml @ 200 mls/hr 1X PRN PRN 06/17/18 17:00 06/17/18 22:59 DC Albuterol/ Ipratropium (Duoneb) 3 ml PRN QID PRN 06/16/18 23:30 06/17/18 23:19 3 ML Amiodarone HCl (Cordarone) 200 mg DAILY 06/17/18 09:00 06/19/18 08:43 200 MG Aspirin (Children'S Aspirin) 81 mg [id number] 06/17/18 08:00 06/19/18 08:43 81 MG Atorvastatin Calcium (Lipitor) 80 mg HS 06/17/18 21:00 06/18/18 20:44 80 MG Calcitriol (Rocaltrol) 0.25 mcg DAILY 06/17/18 09:00 06/19/18 08:43 0.25 MCG Carbamazepine (TEGretol) 200 mg BID 06/17/18 09:00 06/19/18 08:43 200 MG Carvedilol (Coreg) 12.5 mg BIDWMEALS 06/18/18 17:00 06/19/18 08:43 12.5 MG Cefepime HCl (Maxipime) 1 gm ONCE ONCE 06/17/18 00:00 06/17/18 00:01 DC 06/17/18 00:15 1 GM Daptomycin 360 mg/ Sodium Chloride 50 ml @ 100 mls/hr Q48H 06/17/18 07:00 06/19/18 08:45 100 MLS/HR Dextrose (Dextrose 50%-Water Syringe) 12.5 gm PRN Q15MIN PRN 06/16/18 19:30 Diltiazem HCl (Cardizem 24hr Cd) 120 mg DAILY 06/17/18 09:00 06/19/18 08:43 120 MG Diphenhydramine HCl (Benadryl Oral Elixir) 12.5 mg 1X PRN PRN 06/17/18 05:15 Diphenhydramine HCl (Benadryl) 25 mg PRN 1X PRN 06/17/18 05:15 Docusate Sodium (Colace) 100 mg PRN BID PRN 06/16/18 23:30 Erythromycin (E-Mycin) 250 mg BID 06/17/18 09:00 06/19/18 08:44 250 MG Famotidine (Pepcid) 20 mg Q48H 06/19/18 21:00 Ferrous Sulfate (Feosol) 325 mg DAILY 06/17/18 09:00 06/19/18 08:42 325 MG Guaifenesin (Mucinex) 600 mg BID 06/17/18 09:00 06/19/18 08:43 600 MG Hydralazine HCl (Apresoline) 10 mg PRN TID PRN 06/16/18 23:30 Hydromorphone HCl (Dilaudid) 1 mg PRN Q3HRS PRN 06/16/18 19:30 06/16/18 19:37 1 MG Info (PHARMACY MONITORING -- do not chart) 1 each PRN DAILY PRN 06/19/18 07:15 06/19/18 07:15 DC Insulin Glargine (Lantus) 15 units PRN QHS PRN 06/16/18 23:30 06/17/18 23:46 10 UNITS Insulin Human Lispro (HumaLOG) 5 units PRN TID PRN 06/16/18 23:30 Lactobacillus Rhamnosus (Culturelle) 1 cap BID 06/17/18 21:00 06/19/18 08:43 1 CAP Levofloxacin/ Dextrose 100 ml @ 100 mls/hr 1X ONCE 06/16/18 16:45 06/16/18 17:44 DC 06/16/18 17:20 100 MLS/HR Lidocaine (Lidoderm) 1 patch PRN DAILY PRN 06/16/18 23:30 Methylprednisolone Sodium Succinate (SOLU-Medrol 125MG VIAL) 125 mg 1X ONCE 06/16/18 16:00 06/16/18 16:01 DC 06/16/18 17:20 125 MG Metronidazole (Flagyl) 500 mg Q8HRS 06/17/18 06:30 06/19/18 05:49 500 MG Micafungin Sodium 100 mg/Dextrose 100 ml @ 100 mls/hr Q24H 06/17/18 06:30 06/19/18 05:50 100 MLS/HR Miscellaneous (Lidoderm Patch Removal) 1 ea QHS 06/17/18 21:00 Morphine Sulfate (Ms Contin) 15 mg BID 06/19/18 09:00 06/19/18 08:42 15 MG Niacin (Slo-Niacin) 250 mg BID 06/17/18 09:00 06/19/18 08:44 250 MG Ondansetron HCl (Zofran) 4 mg PRN Q8HRS PRN 06/16/18 17:15 06/17/18 17:14 DC Oxycodone HCl (OxyCONTIN) 10 mg Q12HR 06/17/18 10:00 06/18/18 21:10 DC 06/18/18 20:45 10 MG Oxycodone/ Acetaminophen (Percocet 10/325) 1 tab PRN Q6HRS PRN 06/18/18 21:15 06/19/18 09:02 1 TAB Polyethylene Glycol (miraLAX PACKET) 17 gm DAILY 06/17/18 09:00 06/17/18 09:52 17 GM Prochlorperazine Maleate (Compazine) 10 mg PRN Q6HRS PRN 06/16/18 23:30 Sevelamer Carbonate (Renvela) 1,600 mg TIDWMEALS 06/17/18 08:00 06/18/18 17:02 1,600 MG Sodium Chloride 1,000 ml @ 400 mls/hr Q2H30M PRN 06/19/18 07:02 06/19/18 19:01 Sodium Chloride (Normal Saline Flush) 10 ml 1X PRN PRN 06/19/18 07:15 06/20/18 07:14 Sodium Chloride (Saline Mist Nasal) 1 erich PRN BID PRN 06/16/18 23:30 Ticagrelor (Brilinta) 90 mg BID 06/17/18 09:00 06/19/18 08:43 90 MG Tramadol HCl (Ultram) 50 mg PRN Q4HRS PRN 06/16/18 23:30 06/18/18 12:12 50 MG Vancomycin HCl 1.75 gm/Sodium Chloride 500 ml @ 250 mls/hr 1X ONCE 06/16/18 17:45 06/16/18 19:44 DC 06/16/18 17:19 250 MLS/HR Zolpidem Tartrate (Ambien) 5 mg QHS 06/17/18 21:00 06/18/18 00:01 5 MG Lab Laboratory Tests Test 06/18/18 13:05 06/18/18 16:39 06/18/18 20:24 06/19/18 03:30 Glucose (Fingerstick) 191 mg/dL (70-99) 161 mg/dL (70-99) 161 mg/dL (70-99) White Blood Count 19.7 x10^3/uL (4.0-11.0) Red Blood Count 2.47 x10^6/uL (3.50-5.40) Hemoglobin 7.7 g/dL (12.0-15.5) Hematocrit 24.2 % (36.0-47.0) Mean Corpuscular Volume 98 fL (79-100) Mean Corpuscular Hemoglobin 31 pg (25-35) Mean Corpuscular Hemoglobin Concent 32 g/dL (31-37) Red Cell Distribution Width 19.0 % (11.5-14.5) Platelet Count 264 x10^3/uL (140-400) Neutrophils (%) (Auto) 86 % (31-73) Lymphocytes (%) (Auto) 7 % (24-48) Monocytes (%) (Auto) 7 % (0-9) Eosinophils (%) (Auto) 0 % (0-3) Basophils (%) (Auto) 0 % (0-3) Neutrophils # (Auto) 16.9 x10^3uL (1.8-7.7) Lymphocytes # (Auto) 1.4 x10^3/uL (1.0-4.8) Monocytes # (Auto) 1.3 x10^3/uL (0.0-1.1) Eosinophils # (Auto) 0.1 x10^3/uL (0.0-0.7) Basophils # (Auto) 0.0 x10^3/uL (0.0-0.2) Test 06/19/18 08:22 Glucose (Fingerstick) 106 mg/dL (70-99) Results All relevant outside records, renal labs, imaging studies, telemetry/EKG's were reviewed. BEAR LÓPEZ MD Jun 19, 2018 12:08
[2018-06-19] MEDS ORDERED: MAGNESIUM SULFATE 2GM 50 ML IV PRN (12:15)
--- NOTE | 2018-06-19 13:01 | PDOC ---
PROGRESS NOTES Chief Complaint Chief Complaint acute Shortness of breath - with Hypoxia - w. acute diastolic CHF exacerbation w COPD exacerbation RUE hematoma - could be AV fistula infiltration vs pseudoaneurysm Right lower extremity swelling with skin breakdown - goes back to December 15, 2017, but this is much worse, will treat as cellulitis. Despite her allergies listed she did tolerate cephalosporins previously, aConsult ID Severe sepsis - empiric antibiotics for her RLE cellulitis as above Recent Right groin sx wound infection s/p i and d 02/01 and 02/05 - vascular surgery consulted Recent right leg PAD s/p R fem to pop bypass h/o L BKA - stable CAD w/ hx CABG, EF 50% - cont meds Diabetic retinopathy with VITREOUS HEMORRHAGE s/p sx, fu with [facility] Apr 09 - stable Vitreous hemorrhage, left > RT sec to DM - stable End-stage renal disease, on dialysis via AV fistula here at home per pt has been on PD - consult nephrology A- fib - amiodarone therapy Gastroparesis - on Erythromycin Left retinal optic disc drusen, bl blurry vision Acute on chronic decubitus ulcer - will have wound care to see. Will consult Dr. Solorio malnutrition History of Present Illness History of Present Illness Patient very somnolent during my encounter. I have requested to stop that and just continue with her home medications. Patient much more stable today compared to yesterday. Appreciate database reporting consultant's recommendations Vitals Vitals Vital Signs Date Time Temp Pulse Resp B/P (MAP) Pulse Ox O2 Delivery O2 Flow Rate FiO2 06/19/18 12:13 Room Air 06/19/18 11:00 97.8 86 18 110/52 (71) 100 97.8 Physical Exam Physical Exam GENERAL; Propped up in bed, resting quietly HEENT: Normal conjunctivae. Oral cavity, pharynx was dry - clear. NECK: Supple, no JVD. LUNGS: Decreased in the bases. HEART: S1, S2. 1/6 murmur. ABDOMEN: Soft, nontender, no guarding or rebound. PD catheter is in place. EXTREMITIES: Without clubbing, cyanosis. Her right foot has chronic edema and some chronic venous changes with some dry areas. Her right groin area is without signs of complications. Right leg has a dry area of wound that is dressed SKIN: Without signs of generalized rash. PSYCHIATRIC: Affect is flat. NEUROLOGIC: Arouses to name, responds appropriately RUE questionable hematoma associated with it. General: Alert, Oriented X3, Cooperative, No acute distress Heart: Regular rate Lungs: Clear, Other Abdomen: Soft Extremities: No cyanosis, Other (strong palpable proximal bypass pulse. Strong triphasic and biphasic Doppler signals to distal bypass, right DP and PT. Foot is warm. Unable to assess motor function and incision due to patient's drowsiness. Her posterior right calf has superficial beginning stages or pressure ulcer. Her right arm AV graft has strong thrill and bruit proximally and distally. Right upper medial arm has large mass of mottled ecchymosis, this is mostly firm on palpation and nonpulsatile.) Skin: No rashes, Other (patient with severe right lower extremity skin tautness , dryness with scattered superficial scabbing, none of which appear to penetrate beyond epidermis. She has a dark thickened area of skin midfoot dorsal side. She has moderate right leg swelling. Skin is flaky. Right groin site is healed appropriately. No signs of infection the right groin. ) Labs LABS Laboratory Tests Test 06/18/18 13:05 06/18/18 16:39 06/18/18 20:24 06/19/18 03:30 Glucose (Fingerstick) 191 mg/dL (70-99) 161 mg/dL (70-99) 161 mg/dL (70-99) White Blood Count 19.7 x10^3/uL (4.0-11.0) Red Blood Count 2.47 x10^6/uL (3.50-5.40) Hemoglobin 7.7 g/dL (12.0-15.5) Hematocrit 24.2 % (36.0-47.0) Mean Corpuscular Volume 98 fL (79-100) Mean Corpuscular Hemoglobin 31 pg (25-35) Mean Corpuscular Hemoglobin Concent 32 g/dL (31-37) Red Cell Distribution Width 19.0 % (11.5-14.5) Platelet Count 264 x10^3/uL (140-400) Neutrophils (%) (Auto) 86 % (31-73) Lymphocytes (%) (Auto) 7 % (24-48) Monocytes (%) (Auto) 7 % (0-9) Eosinophils (%) (Auto) 0 % (0-3) Basophils (%) (Auto) 0 % (0-3) Neutrophils # (Auto) 16.9 x10^3uL (1.8-7.7) Lymphocytes # (Auto) 1.4 x10^3/uL (1.0-4.8) Monocytes # (Auto) 1.3 x10^3/uL (0.0-1.1) Eosinophils # (Auto) 0.1 x10^3/uL (0.0-0.7) Basophils # (Auto) 0.0 x10^3/uL (0.0-0.2) Test 06/19/18 08:22 06/19/18 12:03 Glucose (Fingerstick) 106 mg/dL (70-99) 136 mg/dL (70-99) Assessment and Plan Assessmemt and Plan Problems Medical Problems: (1) End-stage renal disease on hemodialysis Status: Acute (2) Sepsis Status: Acute Comment Review of Relevant I have reviewed the following items bert (where applicable) has been applied. Labs Laboratory Tests Test 06/17/18 23:02 06/18/18 05:30 06/18/18 08:33 06/18/18 13:05 Glucose (Fingerstick) 286 mg/dL (70-99) 212 mg/dL (70-99) 191 mg/dL (70-99) White Blood Count 27.2 x10^3/uL (4.0-11.0) Red Blood Count 2.47 x10^6/uL (3.50-5.40) Hemoglobin 7.8 g/dL (12.0-15.5) Hematocrit 24.2 % (36.0-47.0) Mean Corpuscular Volume 98 fL (79-100) Mean Corpuscular Hemoglobin 32 pg (25-35) Mean Corpuscular Hemoglobin Concent 32 g/dL (31-37) Red Cell Distribution Width 19.6 % (11.5-14.5) Platelet Count 250 x10^3/uL (140-400) Neutrophils (%) (Auto) 89 % (31-73) Lymphocytes (%) (Auto) 3 % (24-48) Monocytes (%) (Auto) 7 % (0-9) Eosinophils (%) (Auto) 0 % (0-3) Basophils (%) (Auto) 0 % (0-3) Neutrophils # (Auto) 24.4 x10^3uL (1.8-7.7) Lymphocytes # (Auto) 0.9 x10^3/uL (1.0-4.8) Monocytes # (Auto) 1.9 x10^3/uL (0.0-1.1) Eosinophils # (Auto) 0.0 x10^3/uL (0.0-0.7) Basophils # (Auto) 0.0 x10^3/uL (0.0-0.2) Sodium Level 138 mmol/L (136-145) Potassium Level 4.2 mmol/L (3.5-5.1) Chloride Level 97 mmol/L (98-107) Carbon Dioxide Level 30 mmol/L (21-32) Anion Gap 11 (6-14) Blood Urea Nitrogen 45 mg/dL (7-20) Creatinine 3.4 mg/dL (0.6-1.0) Estimated GFR (Cockcroft-Gault) 14.2 BUN/Creatinine Ratio 13 (6-20) Glucose Level 259 mg/dL (70-99) Calcium Level 8.8 mg/dL (8.5-10.1) Total Bilirubin 0.8 mg/dL (0.2-1.0) Aspartate Amino Transf (AST/SGOT) 10 U/L (15-37) Alanine Aminotransferase (ALT/SGPT) 8 U/L (14-59) Alkaline Phosphatase 100 U/L (46-116) Total Protein 6.5 g/dL (6.4-8.2) Albumin 2.4 g/dL (3.4-5.0) Albumin/Globulin Ratio 0.6 (1.0-1.7) Test 06/18/18 16:39 06/18/18 20:24 06/19/18 03:30 06/19/18 08:22 Glucose (Fingerstick) 161 mg/dL (70-99) 161 mg/dL (70-99) 106 mg/dL (70-99) White Blood Count 19.7 x10^3/uL (4.0-11.0) Red Blood Count 2.47 x10^6/uL (3.50-5.40) Hemoglobin 7.7 g/dL (12.0-15.5) Hematocrit 24.2 % (36.0-47.0) Mean Corpuscular Volume 98 fL (79-100) Mean Corpuscular Hemoglobin 31 pg (25-35) Mean Corpuscular Hemoglobin Concent 32 g/dL (31-37) Red Cell Distribution Width 19.0 % (11.5-14.5) Platelet Count 264 x10^3/uL (140-400) Neutrophils (%) (Auto) 86 % (31-73) Lymphocytes (%) (Auto) 7 % (24-48) Monocytes (%) (Auto) 7 % (0-9) Eosinophils (%) (Auto) 0 % (0-3) Basophils (%) (Auto) 0 % (0-3) Neutrophils # (Auto) 16.9 x10^3uL (1.8-7.7) Lymphocytes # (Auto) 1.4 x10^3/uL (1.0-4.8) Monocytes # (Auto) 1.3 x10^3/uL (0.0-1.1) Eosinophils # (Auto) 0.1 x10^3/uL (0.0-0.7) Basophils # (Auto) 0.0 x10^3/uL (0.0-0.2) Test 06/19/18 12:03 Glucose (Fingerstick) 136 mg/dL (70-99) Laboratory Tests Test 06/18/18 13:05 06/18/18 16:39 06/18/18 20:24 06/19/18 03:30 Glucose (Fingerstick) 191 mg/dL (70-99) 161 mg/dL (70-99) 161 mg/dL (70-99) White Blood Count 19.7 x10^3/uL (4.0-11.0) Red Blood Count 2.47 x10^6/uL (3.50-5.40) Hemoglobin 7.7 g/dL (12.0-15.5) Hematocrit 24.2 % (36.0-47.0) Mean Corpuscular Volume 98 fL (79-100) Mean Corpuscular Hemoglobin 31 pg (25-35) Mean Corpuscular Hemoglobin Concent 32 g/dL (31-37) Red Cell Distribution Width 19.0 % (11.5-14.5) Platelet Count 264 x10^3/uL (140-400) Neutrophils (%) (Auto) 86 % (31-73) Lymphocytes (%) (Auto) 7 % (24-48) Monocytes (%) (Auto) 7 % (0-9) Eosinophils (%) (Auto) 0 % (0-3) Basophils (%) (Auto) 0 % (0-3) Neutrophils # (Auto) 16.9 x10^3uL (1.8-7.7) Lymphocytes # (Auto) 1.4 x10^3/uL (1.0-4.8) Monocytes # (Auto) 1.3 x10^3/uL (0.0-1.1) Eosinophils # (Auto) 0.1 x10^3/uL (0.0-0.7) Basophils # (Auto) 0.0 x10^3/uL (0.0-0.2) Test 06/19/18 08:22 06/19/18 12:03 Glucose (Fingerstick) 106 mg/dL (70-99) 136 mg/dL (70-99) Microbiology 06/16/18 Blood Culture - Final, Complete Medications Current Medications Albuterol/ Ipratropium (Duoneb) 3 ml 1X ONCE NEB Last administered on at 14:38; Start 06/16/18 at 14:15; Stop 06/16/18 at 14:16; Status DC Methylprednisolone Sodium Succinate (SOLU-Medrol 125MG VIAL) 125 mg 1X ONCE IV Last administered on 06/16/18at 17:20; Start 06/16/18 at 16:00; Stop 06/16/18 at 16:01; Status DC Levofloxacin/ Dextrose 100 ml @ 100 mls/hr 1X ONCE IV Last administered on at 17:20; Start 06/16/18 at 16:45; Stop 06/16/18 at 17:44; Status DC Vancomycin HCl 250 ml @ 250 mls/hr 1X ONCE IV ; Start 06/16/18 at 16:45; Stop 06/16/18 at 17:44; Status UNV Vancomycin HCl 1.75 gm/Sodium Chloride 500 ml @ 250 mls/hr 1X ONCE IV Last administered on 06/16/18at 17:19; Start 06/16/18 at 17:45; Stop 06/16/18 at 19:44 ; Status DC Ondansetron HCl (Zofran) 4 mg PRN Q8HRS PRN IV NAUSEA/VOMITING; Start 06/16/18 at 17:15; Stop 06/17/18 at 17:14; Status DC Acetaminophen (Tylenol) 650 mg PRN Q4HRS PRN PO FEVER Last administered on 06/16 18:21; Start 06/16/18 at 17:15; Stop 06/16/18 at 19:29; Status DC Hydromorphone HCl (Dilaudid) 0.5 mg PRN Q3HRS PRN IVP MILD PAIN Last administered on 06/19/18 11:38; Start 06/16/18 at 19:30 Hydromorphone HCl (Dilaudid) 1 mg PRN Q3HRS PRN IVP MODERATE PAIN, SEVERE PAIN Last administered on 06/16/18at 19:37; Start 06/16/18 at 19:30 Acetaminophen/ Hydrocodone Bitart (Lortab 5/325) 1 tab PRN Q6HRS PRN PO PAIN Last administered on 06/18/18at 17:04; Start 06/16/18 at 19:30; Stop 06/18/18 at 21:10; Status DC Acetaminophen (Tylenol) 650 mg PRN Q6HRS PRN PO FEVER; Start 06/16/18 at 19:30 Insulin Human Lispro (HumaLOG) 0-5 UNITS TIDWMEALS SQ Last administered on 06/18at 17:13; Start 06/17/18 at 08:00 Dextrose (Dextrose 50%-Water Syringe) 12.5 gm PRN Q15MIN PRN IV SEE COMMENTS; Start 06/16/18 at 19:30 Amiodarone HCl (Cordarone) 200 mg DAILY PO Last administered on 06/19/18 08:43 ; Start 06/17/18 at 09:00 Aspirin (Children'S Aspirin) 81 mg DAILYWBKFT PO Last administered on 08:43; Start 06/17/18 at 08:00 Carbamazepine (TEGretol) 200 mg BID PO Last administered on 06/19/18at 08:43; Start 06/17/18 at 09:00 Carvedilol (Coreg) 12.5 mg BIDWMEALS PO ; Start 06/17/18 at 08:00; Stop at 09:07; Status DC Docusate Sodium (Colace) 100 mg PRN BID PRN PO CONSTIPATION; Start 06/16/18 at 23:30 Famotidine (Pepcid) 20 mg HS PO Last administered on 06/17/18 22:59; Start at 21:00; Stop 06/18/18 at 08:47; Status DC Ferrous Sulfate (Feosol) 325 mg DAILY PO Last administered on 06/19/18 08:42; Start 06/17/18 at 09:00 Guaifenesin (Mucinex) 600 mg BID PO Last administered on 06/19/18 08:43; Start 06/17/18 at 09:00 Insulin Glargine (Lantus) 15 units PRN QHS PRN SQ diabetes Last administered on 06/17/18 23:46; Start 06/16/18 at 23:30 Insulin Human Lispro (HumaLOG) 5 units PRN TID PRN SQ Diabetes; Start 06/16/18 at 23:30 Albuterol/ Ipratropium (Duoneb) 3 ml PRN QID PRN NEB shortness of breath Last administered on 06/17/18 23:19; Start 06/16/18 at 23:30 Prochlorperazine Maleate (Compazine) 10 mg PRN Q6HRS PRN PO NAUSEA/VOMITING; Start 06/16/18 at 23:30 Sevelamer Carbonate (Renvela) 1,600 mg TIDWMEALS PO Last administered on 12:23; Start 06/17/18 at 08:00 Ticagrelor (Brilinta) 90 mg BID PO Last administered on 06/19/18 08:43; Start 06/17/18 at 09:00 Tramadol HCl (Ultram) 50 mg PRN Q4HRS PRN PO HEADACHE Last administered on 06/18 12:12; Start 06/16/18 at 23:30 Atorvastatin Calcium (Lipitor) 80 mg HS PO Last administered on 06/18/18 20:44 ; Start 06/17/18 at 21:00 Calcitriol (Rocaltrol) 0.25 mcg DAILY PO Last administered on 06/19/18 08:43; Start 06/17/18 at 09:00 Diltiazem HCl (Cardizem 24hr Cd) 120 mg DAILY PO Last administered on at 08:43; Start 06/17/18 at 09:00 Diphenhydramine HCl (Benadryl) 50 mg PRN Q8HRS PRN PO ITCHING; Start 06/16/18 at 23:30 Erythromycin (E-Mycin) 250 mg BID PO Last administered on 06/19/18at 08:44; Start 06/17/18 at 09:00 Hydralazine HCl (Apresoline) 10 mg PRN TID PRN PO HYPERTENSION, SEE COMMENTS; Start 06/16/18 at 23:30 Lidocaine (Lidoderm) 1 patch PRN DAILY PRN TP PAIN; Start 06/16/18 at 23:30 Zolpidem Tartrate (Ambien) 5 mg QHS PO Last administered on 06/18/18at 00:01; Start 06/17/18 at 21:00 Niacin (Slo-Niacin) 250 mg BID PO Last administered on 06/19/18at 08:44; Start 06/17/18 at 09:00 Polyethylene Glycol (miraLAX PACKET) 17 gm DAILY PO Last administered on at 09:52; Start 06/17/18 at 09:00 Sodium Chloride (Saline Mist Nasal) 1 erich PRN BID PRN NS Congestion; Start at 23:30 Cefepime HCl (Maxipime) 1 gm Q24H IVP Last administered on 06/18/18at 20:46; Start 06/17/18 at 22:00 Cefepime HCl (Maxipime) 1 gm ONCE ONCE IVP Last administered on 06/17/18at 00: 15; Start 06/17/18 at 00:00; Stop 06/17/18 at 00:01; Status DC Miscellaneous (Lidoderm Patch Removal) 1 ea QHS MC ; Start 06/17/18 at 21:00 Acetaminophen (Tylenol) 650 mg 1X PRN PRN PO PRE-TRANSFUSION; Start 06/17/18 at 05:15 Diphenhydramine HCl (Benadryl Oral Elixir) 12.5 mg 1X PRN PRN PO PRE- TRANSFUSION; Start 06/17/18 at 05:15 Diphenhydramine HCl (Benadryl) 25 mg PRN 1X PRN PO PRE-TRANSFUSION; Start 06/17 at 05:15 Daptomycin 360 mg/ Sodium Chloride 50 ml @ 100 mls/hr Q48H IV Last administered on 06/19/18at 08:45; Start 06/17/18 at 07:00 Micafungin Sodium 100 mg/Dextrose 100 ml @ 100 mls/hr Q24H IV Last administered on 06/19/18at 05:50; Start 06/17/18 at 06:30 Metronidazole (Flagyl) 500 mg Q8HRS PO Last administered on 06/19/18 05:49; Start 06/17/18 at 06:30 Oxycodone HCl (OxyCONTIN) 10 mg Q12HR PO Last administered on 06/18/18at 20:45; Start 06/17/18 at 10:00; Stop 06/18/18 at 21:10; Status DC Lactobacillus Rhamnosus (Culturelle) 1 cap BID PO Last administered on at 08:43; Start 06/17/18 at 21:00 Sodium Chloride 1,000 ml @ 1,000 mls/hr Q1H PRN IV hypotension; Start 06/17/18 at 16:51; Stop 06/17/18 at 22:50; Status DC Albumin Human 200 ml @ 200 mls/hr 1X PRN PRN IV Hypotension; Start 06/17/18 at 17:00; Stop 06/17/18 at 22:59; Status DC Sodium Chloride 1,000 ml @ 400 mls/hr Q2H30M PRN IV PATENCY; Start 06/17/18 at 16:51; Stop 06/18/18 at 04:50; Status DC Info (PHARMACY MONITORING -- do not chart) 1 each PRN DAILY PRN MC SEE COMMENTS ; Start 06/17/18 at 17:00 Info (PHARMACY MONITORING -- do not chart) 1 each PRN DAILY PRN MC SEE COMMENTS ; Start 06/17/18 at 17:00; Status UNV Famotidine (Pepcid) 20 mg Q48H PO ; Start 06/19/18 at 21:00 Carvedilol (Coreg) 12.5 mg BIDWMEALS PO Last administered on 06/19/18at 08:43; Start 06/18/18 at 17:00 Morphine Sulfate (Ms Contin) 15 mg BID PO Last administered on 06/19/18at 08:42 ; Start 06/19/18 at 09:00 Oxycodone/ Acetaminophen (Percocet 10/325) 1 tab PRN Q6HRS PRN PO PAIN Last administered on 06/19/18at 09:02; Start 06/18/18 at 21:15 Sodium Chloride 1,000 ml @ 1,000 mls/hr Q1H PRN IV hypotension; Start 06/19/18 at 07:02; Stop 06/19/18 at 13:01 Sodium Chloride (Normal Saline Flush) 10 ml 1X PRN PRN IV AP catheter pack; Start 06/19/18 at 07:15; Stop 06/20/18 at 07:14 Sodium Chloride (Normal Saline Flush) 10 ml 1X PRN PRN IV GAS APPLIANCE ADJUSTER catheter pack; Start 06/19/18 at 07:15; Stop 06/20/18 at 07:14 Sodium Chloride 1,000 ml @ 400 mls/hr Q2H30M PRN IV PATENCY; Start 06/19/18 at 07:02; Stop 06/19/18 at 19:01 Info (PHARMACY MONITORING -- do not chart) 1 each PRN DAILY PRN MC SEE COMMENTS ; Start 06/19/18 at 07:15; Stop 06/19/18 at 07:15; Status DC Info (PHARMACY MONITORING -- do not chart) 1 each PRN DAILY PRN MC SEE COMMENTS ; Start 06/19/18 at 07:15; Stop 06/19/18 at 07:15; Status DC Darbepoetin Mauricio (Aranesp) 60 mcg WEEKLYHS SQ ; Start 06/19/18 at 21:00 Magnesium Sulfate 50 ml @ 25 mls/hr PRN DAILY PRN IV for Mag < 1.7 on am labs; Start 06/19/18 at 12:15 Active Scripts Active Brilinta (Ticagrelor) 90 Mg Tablet 90 Mg PO BID 30 Days Reported Renvela (Sevelamer Carbonate) 800 Mg Tablet 2 Tab PO TID Melatonin 3 Mg Tablet 9 Mg PO QHS Lantus Solostar (Insulin Glargine,Hum.rec.anlog) 100 Unit/1 Ml Insuln.pen 15 Unit SQ QHS PRN Duoneb 0.5-3(2.5) Mg/3 Ml (Albuterol/Ipratropium) 3 Ml Ampul.neb 3 Ml NEB QID PRN Humalog (Insulin Lispro) 100 Unit/1 Ml Vial 100 Unit SQ TID Humalog (Insulin Lispro) 100 Unit/1 Ml Vial 5 Unit SQ TID PRN Guaifenesin 600 Mg Tablet.er 600 Mg PO BID [place] Saline (Sodium Chloride) 50 Ml [place] 1 [place] NS BID PRN Acetaminophen 500 Mg Tablet 650 Mg PO Q6HRS PRN Morphine Sulfate Er (Morphine Sulfate) 30 Mg Tablet.er 1 Tab PO BID Aspirin 81 Mg Tab.chew 1 Tab PO DAILY Calcitriol 0.25 Mcg Capsule 1 Cap PO DAILY Pepcid (Famotidine) 20 Mg Tablet 20 Mg PO HS Niacin 250 Mg Tablet 250 Mg PO BID Miralax (Polyethylene Glycol 3350) 17 Gm Powd.pack 1 Packet PO DAILY Hydralazine Hcl 10 Mg Tablet 1 Tab PO PRN TID PRN Oxycodone Hcl Immed.release (Oxycodone Hcl) 5 Mg Tablet 2 Tab PO PRN Q4HRS PRN Ferrous Sulfate 325 Mg Tablet 1 Tab PO DAILY Diphenhydramine Hcl 50 Mg Capsule 1 Cap PO PRN Q8HRS PRN Prochlorperazine Maleate 10 Mg Tablet 1 Tab PO PRN Q6HRS PRN Lidocaine 1 Each Adh..patch 1 Each TP PRN DAILY PRN Tegretol (Carbamazepine) 200 Mg Tablet 1 Tab PO BID Tramadol Hcl 50 Mg Tablet 50 Mg PO Q4HRS PRN Carvedilol (Carvedilol) 3.125 Mg Tablet 12.5 Mg PO BID Erythromycin (Erythromycin Base) 250 Mg Capsule.dr 250 Mg PO BID Cardizem Cd (Diltiazem Hcl) 180 Mg Cap.er.24h 120 Mg PO DAILY Amiodarone Hcl 200 Mg Tablet 1 Tab PO DAILY Lipitor (Atorvastatin Calcium) 80 Mg Tablet 80 Mg PO HS Docusate Sodium 100 Mg Capsule 1 Cap PO PRN PRN Vitals/I & O Vital Sign - Last 24 Hours 06/18/18 06/18/18 06/18/18 06/18/18 13:11 13:50 16:00 16:45 Temp 98.0 97.9 98.0 97.9 Pulse 92 85 Resp 10 14 13 14 B/P (MAP) 90/54 (66) 117/54 (75) Pulse Ox 100 100 100 100 O2 Delivery Room Air Room Air Room Air 06/18/18 06/18/18 06/18/18 06/18/18 16:48 17:04 18:04 19:00 Temp 97.8 97.8 Pulse 92 93 Resp 20 20 20 B/P (MAP) 90/54 149/40 (76) Pulse Ox 91 91 99 O2 Delivery Room Air Room Air Room Air 06/18/18 06/18/18 06/18/18 06/18/18 19:32 20:45 21:28 22:28 Pulse Ox 99 99 99 O2 Delivery Room Air Room Air Room Air 06/18/18 06/19/18 06/19/18 06/19/18 23:00 00:45 03:00 03:07 Temp 98.0 98.0 98.0 98.0 Pulse 66 77 Resp 20 20 B/P (MAP) 129/65 (86) 113/63 (80) Pulse Ox 100 100 99 O2 Delivery Room Air Room Air Room Air Room Air 06/19/18 06/19/18 06/19/18 06/19/18 07:00 07:55 08:42 08:43 Temp 97.8 97.8 Pulse 97 97 Resp 18 B/P (MAP) 137/57 (83) 137/57 Pulse Ox 100 O2 Delivery Room Air Room Air Room Air 06/19/18 06/19/18 06/19/18 06/19/18 08:43 08:43 09:02 10:36 Pulse 97 97 B/P (MAP) 137/57 137/57 O2 Delivery Room Air Room Air 06/19/18 06/19/18 06/19/18 06/19/18 11:00 11:38 12:13 12:13 Temp 97.8 97.8 Pulse 86 Resp 18 B/P (MAP) 110/52 (71) Pulse Ox 100 O2 Delivery Room Air Room Air Room Air Room Air Intake and Output 06/18/18 06/18/18 06/19/18 15:00 23:00 07:00 Intake Total 120 ml Output Total 0 ml 0 ml 0 ml Balance 120 ml 0 ml 0 ml Nutrition Consultation Dietary Evaluation: Recommendations by RD: Increase Calorie Intake, Protein supplementation Comments: REC liberalize diet to regular to promote/encourage increased PO intake REC Rian BID (fruit punch) REC MVI - wound healing Expected Outcomes/Goals: PO intake to meet >75% est needs Interpretation of weight loss: >7.5% in 3 months Malnutrition Findings: Weight Status: Appropriate ROMI GOSS MD Jun 19, 2018 13:01
[2018-06-19] MEDS: IPRATRPIUM/ALBUTEROL 0.5/2.5MG 3 ML NEBU. NEB PRN (13:55)
[2018-06-19 15:00] VITALS: BP 110/55
--- NOTE | 2018-06-19 18:09 | NUR ---
Patient refused breakfast, ate only a piece of cheese and a couple of crackers at lunch, and refused dinner. Patient remains lethargic. Will continue to monitor patient.
[2018-06-19 19:00] VITALS: BP 134/64
[2018-06-19] MEDS ORDERED: DARBEPOETIN ALFA 60 MCG/0.3 ML DISP.SYRIN. SQ SCH (21:00)
[2018-06-19] MEDS: MORPHINE ER 15 MG TABLET.ER PO SCH (21:06)
[2018-06-19] MEDS: ATORVASTATIN CALCIUM 40 MG TABLET. PO SCH (21:07)
[2018-06-19] MEDS: FAMOTIDINE 20 MG TABLET. PO SCH (21:07)
[2018-06-19] MEDS: CEFEPIME HCL IV Push 1 GM VIAL. IVP SCH (21:08)
[2018-06-19] MEDS: ZOLPIDEM 5 MG TABLET. PO SCH (21:08)
[2018-06-19] MEDS: PATCH REMOVAL. MC SCH (21:08)
[2018-06-19 22:58] VITALS: BP 138/73
[2018-06-20] MEDS: oxyCODONE/APAP 10/325 1 TAB TABLET PO PRN ×3 (02:39→14:41)
[2018-06-20] MEDS: PROCHLORPERAZINE 5 MG TABLET. PO PRN ×2 (02:39→16:18)
--- NOTE | 2018-06-20 02:47 | NUR ---
Pt have multiple episodes of V-tach on the monitor. Pt is currently sitting on the side of the bed, not feeling well, nausea, and in pain. Nausea and pain medications was given. Dr. Yadav was notified. No new orders at this time. Will continue to monitor pt closely.
[2018-06-20 03:00] VITALS: BP 107/48
[2018-06-20] MEDS: metroNIDAZOLE 500 MG TABLET PO SCH ×3 (05:53→22:30)
[2018-06-20] MEDS: MICAFUNGIN 100 MG in IV DEXTROSE 5% 100ML 100 ML IV SCH (05:53)
[2018-06-20 07:00] VITALS: BP 132/57
[2018-06-20] MEDS: INSULIN LISPRO 300 UNITS/3 ML INSULN.PEN. SQ SCH ×3 (08:00→17:00)
[2018-06-20] MEDS: SEVELAMER CARBONATE 800 MG TABLET. PO SCH ×3 (08:00→17:00)
[2018-06-20] MEDS: MORPHINE ER 15 MG TABLET.ER PO SCH ×2 (08:41→22:32)
[2018-06-20] MEDS: NIACIN ER 250 MG TABLET.ER PO SCH ×2 (08:42→22:28)
[2018-06-20] MEDS: ERYTHROMYCIN BASE 250 MG TABLET PO SCH ×2 (08:42→22:28)
[2018-06-20] MEDS: TICAGRELOR 90 MG TABLET. PO SCH ×2 (08:42→22:28)
[2018-06-20] MEDS: AMIODARONE HCL 200 MG TABLET. PO SCH (08:42)
[2018-06-20] MEDS: CARVEDILOL 12.5 MG TABLET. PO SCH ×2 (08:42→17:34)
[2018-06-20] MEDS: CALCITRIOL 0.25 MCG CAPSULE. PO SCH (08:42)
[2018-06-20] MEDS: ASPIRIN CHEWABLE 81 MG TABLET. PO SCH (08:42)
[2018-06-20] MEDS: FERROUS SULFATE 325 MG TABLET. PO SCH (08:43)
[2018-06-20] MEDS: carBAMazepine 200 MG TABLET PO SCH ×2 (08:43→22:28)
[2018-06-20] MEDS: LACTOBACILLUS RHAMNOSUS GG 1 CAPSULE. PO SCH ×2 (08:43→22:28)
[2018-06-20] MEDS: POLYETHYLENE GLYCOL 3350 17 GM PACKET. PO SCH (08:43)
--- NOTE | 2018-06-20 10:01 | PDOC ---
Infectious Disease Note Subjective Subjective c/o right sided back pain. More comfortable currently on left hip some No F/C/S/SOA/Rash/N/V/D ROS ROS per HPI Vital Sign Vital Signs Vital Signs Date Time Temp Pulse Resp B/P (MAP) Pulse Ox O2 Delivery O2 Flow Rate FiO2 06/20/18 09:12 100 Room Air 06/20/18 08:43 89 132/57 06/20/18 07:00 97.7 14 97.7 Physical Exam PHYSICAL EXAM GENERAL: Sitting on the side of the bed, tired appearance, HEENT: Normal conjunctivae. Oral cavity, pharynx dry NECK: Supple, no JVD. LUNGS: Decreased in the bases. HEART: S1, S2. 1/6 murmur. ABDOMEN: Soft, nontender, no guarding or rebound. PD catheter is in place. EXTREMITIES: Without clubbing, cyanosis. Her right foot has chronic edema and some chronic venous changes with some dry areas. SKIN: Without signs of generalized rash. PSYCHIATRIC: Affect is flat. NEUROLOGIC: Awake, responds appropriately RUE questionable hematoma associated with it. Labs Lab Laboratory Tests Test 06/19/18 12:03 06/19/18 16:41 06/19/18 20:37 06/20/18 04:30 Glucose (Fingerstick) 136 mg/dL (70-99) 144 mg/dL (70-99) 109 mg/dL (70-99) Magnesium Level 2.2 mg/dL (1.8-2.4) Test 06/20/18 07:43 Glucose (Fingerstick) 105 mg/dL (70-99) Micro 06/16. BLD CULT RESULT 1 Preliminary Beta hemolytic Streptococcus, group B Objective Assessment Sepsis - POA 06/16/2018 - 05/29 bacteremia, group B strep Fever - better Abx allergies Leukocytosis -s/p Solu-Medrol - better (also s/p PRBCs) Multiple wounds - Gen surg has evaluated and wound care following Anemia s/p 1 unit PRBCs 06/17 Encephalopathy - answers questions appropriately when awakened CKD on PD/HD RUE hematoma about the fistula on US h/o VRE, MRSA, C. diff Plan Plan of Care D/c Dapto today - (Ho VRE/MRSA) cont cefepime, Flagyl and micafungin - taper soon Probiotics Wound care per WC team Need to off load Contact isolation Attending Co-Sign Attending Co-Sign The patient was seen and interviewed as well as examined at the bedside. The chart was reviewed. The case was discussed. Agree with the plan of care. KYLEIGH QUEEN APRN Jun 20, 2018 10:01 ALBERTO NAVA MD Jun 20, 2018 11:44
[2018-06-20 11:00] VITALS: BP 125/50
--- NOTE | 2018-06-20 11:27 | PDOC ---
PROGRESS NOTES Chief Complaint Chief Complaint acute Shortness of breath - with Hypoxia - w. acute diastolic CHF exacerbation w COPD exacerbation RUE hematoma - could be AV fistula infiltration vs pseudoaneurysm Right lower extremity swelling with skin breakdown - goes back to December 15, 2017, but this is much worse, will treat as cellulitis. Despite her allergies listed she did tolerate cephalosporins previously, aConsult ID Severe sepsis - empiric antibiotics for her RLE cellulitis as above Recent Right groin sx wound infection s/p i and d 02/01 and 02/05 - vascular surgery consulted Recent right leg PAD s/p R fem to pop bypass h/o L BKA - stable CAD w/ hx CABG, EF 50% - cont meds Diabetic retinopathy with VITREOUS HEMORRHAGE s/p sx, fu with [facility] Apr 09 - stable Vitreous hemorrhage, left > RT sec to DM - stable End-stage renal disease, on dialysis via AV fistula here at home per pt has been on PD - consult nephrology A- fib - amiodarone therapy Gastroparesis - on Erythromycin Left retinal optic disc drusen, bl blurry vision Acute on chronic decubitus ulcer - will have wound care to see. Will consult Dr. Solorio malnutrition History of Present Illness History of Present Illness more alert today, sitting, up no event she has not eaten, will change to regular diet, she likes to only eat fresh fruit, crackers, and cottage cheese, not renal diet, but malnutrition is severe. cont current other Vitals Vitals Vital Signs Date Time Temp Pulse Resp B/P (MAP) Pulse Ox O2 Delivery O2 Flow Rate FiO2 06/20/18 09:12 100 Room Air 06/20/18 08:43 89 132/57 06/20/18 07:00 97.7 14 97.7 Physical Exam Physical Exam GENERAL: Sitting on the side of the bed, tired appearance, HEENT: Normal conjunctivae. Oral cavity, pharynx dry NECK: Supple, no JVD. LUNGS: Decreased in the bases. HEART: S1, S2. 1/6 murmur. ABDOMEN: Soft, nontender, no guarding or rebound. PD catheter is in place. EXTREMITIES: Without clubbing, cyanosis. SKIN: Without signs of generalized rash. PSYCHIATRIC: Affect is more bright today General: Alert, Oriented X3, Cooperative, No acute distress Heart: Regular rate Lungs: Clear, Other Abdomen: Soft Extremities: No cyanosis, Other (strong palpable proximal bypass pulse. Strong triphasic and biphasic Doppler signals to distal bypass, right DP and PT. Foot is warm. Unable to assess motor function and incision due to patient's drowsiness. Her posterior right calf has superficial beginning stages or pressure ulcer. Her right arm AV graft has strong thrill and bruit proximally and distally. Right upper medial arm has large mass of mottled ecchymosis, this is mostly firm on palpation and nonpulsatile.) Skin: No rashes, Other (patient with severe right lower extremity skin tautness , dryness with scattered superficial scabbing, none of which appear to penetrate beyond epidermis. She has a dark thickened area of skin midfoot dorsal side. She has moderate right leg swelling. Skin is flaky. Right groin site is healed appropriately. No signs of infection the right groin. ) Labs LABS Laboratory Tests Test 06/19/18 12:03 06/19/18 16:41 06/19/18 20:37 06/20/18 04:30 Glucose (Fingerstick) 136 mg/dL (70-99) 144 mg/dL (70-99) 109 mg/dL (70-99) Magnesium Level 2.2 mg/dL (1.8-2.4) Test 06/20/18 07:43 Glucose (Fingerstick) 105 mg/dL (70-99) Assessment and Plan Assessmemt and Plan Problems Medical Problems: (1) End-stage renal disease on hemodialysis Status: Acute (2) Sepsis Status: Acute Comment Review of Relevant I have reviewed the following items bert (where applicable) has been applied. Labs Laboratory Tests Test 06/18/18 13:05 06/18/18 16:39 06/18/18 20:24 06/19/18 03:30 Glucose (Fingerstick) 191 mg/dL (70-99) 161 mg/dL (70-99) 161 mg/dL (70-99) White Blood Count 19.7 x10^3/uL (4.0-11.0) Red Blood Count 2.47 x10^6/uL (3.50-5.40) Hemoglobin 7.7 g/dL (12.0-15.5) Hematocrit 24.2 % (36.0-47.0) Mean Corpuscular Volume 98 fL (79-100) Mean Corpuscular Hemoglobin 31 pg (25-35) Mean Corpuscular Hemoglobin Concent 32 g/dL (31-37) Red Cell Distribution Width 19.0 % (11.5-14.5) Platelet Count 264 x10^3/uL (140-400) Neutrophils (%) (Auto) 86 % (31-73) Lymphocytes (%) (Auto) 7 % (24-48) Monocytes (%) (Auto) 7 % (0-9) Eosinophils (%) (Auto) 0 % (0-3) Basophils (%) (Auto) 0 % (0-3) Neutrophils # (Auto) 16.9 x10^3uL (1.8-7.7) Lymphocytes # (Auto) 1.4 x10^3/uL (1.0-4.8) Monocytes # (Auto) 1.3 x10^3/uL (0.0-1.1) Eosinophils # (Auto) 0.1 x10^3/uL (0.0-0.7) Basophils # (Auto) 0.0 x10^3/uL (0.0-0.2) Test 06/19/18 08:22 06/19/18 12:03 06/19/18 16:41 06/19/18 20:37 Glucose (Fingerstick) 106 mg/dL (70-99) 136 mg/dL (70-99) 144 mg/dL (70-99) 109 mg/dL (70-99) Test 06/20/18 04:30 06/20/18 07:43 Magnesium Level 2.2 mg/dL (1.8-2.4) Glucose (Fingerstick) 105 mg/dL (70-99) Laboratory Tests Test 06/19/18 12:03 06/19/18 16:41 06/19/18 20:37 06/20/18 04:30 Glucose (Fingerstick) 136 mg/dL (70-99) 144 mg/dL (70-99) 109 mg/dL (70-99) Magnesium Level 2.2 mg/dL (1.8-2.4) Test 06/20/18 07:43 Glucose (Fingerstick) 105 mg/dL (70-99) Microbiology 06/16/18 Blood Culture - Preliminary, Resulted 06/16/18 Blood Culture Result 1 (ROSALIND) - Preliminary, Resulted Medications Current Medications Albuterol/ Ipratropium (Duoneb) 3 ml 1X ONCE NEB Last administered on at 14:38; Start 06/16/18 at 14:15; Stop 06/16/18 at 14:16; Status DC Methylprednisolone Sodium Succinate (SOLU-Medrol 125MG VIAL) 125 mg 1X ONCE IV Last administered on 06/16/18at 17:20; Start 06/16/18 at 16:00; Stop 06/16/18 at 16:01; Status DC Levofloxacin/ Dextrose 100 ml @ 100 mls/hr 1X ONCE IV Last administered on at 17:20; Start 06/16/18 at 16:45; Stop 06/16/18 at 17:44; Status DC Vancomycin HCl 250 ml @ 250 mls/hr 1X ONCE IV ; Start 06/16/18 at 16:45; Stop 06/16/18 at 17:44; Status UNV Vancomycin HCl 1.75 gm/Sodium Chloride 500 ml @ 250 mls/hr 1X ONCE IV Last administered on 06/16/18at 17:19; Start 06/16/18 at 17:45; Stop 06/16/18 at 19:44 ; Status DC Ondansetron HCl (Zofran) 4 mg PRN Q8HRS PRN IV NAUSEA/VOMITING; Start 06/16/18 at 17:15; Stop 06/17/18 at 17:14; Status DC Acetaminophen (Tylenol) 650 mg PRN Q4HRS PRN PO FEVER Last administered on 06/16at 18:21; Start 06/16/18 at 17:15; Stop 06/16/18 at 19:29; Status DC Hydromorphone HCl (Dilaudid) 0.5 mg PRN Q3HRS PRN IVP MILD PAIN Last administered on 06/19/18at 11:38; Start 06/16/18 at 19:30 Hydromorphone HCl (Dilaudid) 1 mg PRN Q3HRS PRN IVP MODERATE PAIN, SEVERE PAIN Last administered on 06/16/18at 19:37; Start 06/16/18 at 19:30 Acetaminophen/ Hydrocodone Bitart (Lortab 5/325) 1 tab PRN Q6HRS PRN PO PAIN Last administered on 06/18/18 17:04; Start 06/16/18 at 19:30; Stop 06/18/18 at 21:10; Status DC Acetaminophen (Tylenol) 650 mg PRN Q6HRS PRN PO FEVER; Start 06/16/18 at 19:30 Insulin Human Lispro (HumaLOG) 0-5 UNITS TIDWMEALS SQ Last administered on 06/18 17:13; Start 06/17/18 at 08:00 Dextrose (Dextrose 50%-Water Syringe) 12.5 gm PRN Q15MIN PRN IV SEE COMMENTS; Start 06/16/18 at 19:30 Amiodarone HCl (Cordarone) 200 mg DAILY PO Last administered on 06/20/18 08:42 ; Start 06/17/18 at 09:00 Aspirin (Children'S Aspirin) 81 mg DAILYWBKFT PO Last administered on 08:42; Start 06/17/18 at 08:00 Carbamazepine (TEGretol) 200 mg BID PO Last administered on 06/20/18 08:43; Start 06/17/18 at 09:00 Carvedilol (Coreg) 12.5 mg BIDWMEALS PO ; Start 06/17/18 at 08:00; Stop at 09:07; Status DC Docusate Sodium (Colace) 100 mg PRN BID PRN PO CONSTIPATION; Start 06/16/18 at 23:30 Famotidine (Pepcid) 20 mg HS PO Last administered on 06/17/18at 22:59; Start at 21:00; Stop 06/18/18 at 08:47; Status DC Ferrous Sulfate (Feosol) 325 mg DAILY PO Last administered on 06/20/18 08:43; Start 06/17/18 at 09:00 Guaifenesin (Mucinex) 600 mg BID PO Last administered on 06/20/18 08:43; Start 06/17/18 at 09:00 Insulin Glargine (Lantus) 15 units PRN QHS PRN SQ diabetes Last administered on 06/17/18at 23:46; Start 06/16/18 at 23:30 Insulin Human Lispro (HumaLOG) 5 units PRN TID PRN SQ Diabetes; Start 06/16/18 at 23:30 Albuterol/ Ipratropium (Duoneb) 3 ml PRN QID PRN NEB shortness of breath Last administered on 06/19/18 13:55; Start 06/16/18 at 23:30 Prochlorperazine Maleate (Compazine) 10 mg PRN Q6HRS PRN PO NAUSEA/VOMITING Last administered on 06/20/18 02:39; Start 06/16/18 at 23:30 Sevelamer Carbonate (Renvela) 1,600 mg TIDWMEALS PO Last administered on 12:23; Start 06/17/18 at 08:00 Ticagrelor (Brilinta) 90 mg BID PO Last administered on 06/20/18 08:42; Start 06/17/18 at 09:00 Tramadol HCl (Ultram) 50 mg PRN Q4HRS PRN PO HEADACHE Last administered on 06/18 12:12; Start 06/16/18 at 23:30 Atorvastatin Calcium (Lipitor) 80 mg HS PO Last administered on 06/19/18 21:07 ; Start 06/17/18 at 21:00 Calcitriol (Rocaltrol) 0.25 mcg DAILY PO Last administered on 06/20/18 08:42; Start 06/17/18 at 09:00 Diltiazem HCl (Cardizem 24hr Cd) 120 mg DAILY PO Last administered on 08:43; Start 06/17/18 at 09:00 Diphenhydramine HCl (Benadryl) 50 mg PRN Q8HRS PRN PO ITCHING; Start 06/16/18 at 23:30 Erythromycin (E-Mycin) 250 mg BID PO Last administered on 06/20/18 08:42; Start 06/17/18 at 09:00 Hydralazine HCl (Apresoline) 10 mg PRN TID PRN PO HYPERTENSION, SEE COMMENTS; Start 06/16/18 at 23:30 Lidocaine (Lidoderm) 1 patch PRN DAILY PRN TP PAIN; Start 06/16/18 at 23:30 Zolpidem Tartrate (Ambien) 5 mg QHS PO Last administered on 06/18/18at 00:01; Start 06/17/18 at 21:00 Niacin (Slo-Niacin) 250 mg BID PO Last administered on 06/20/18at 08:42; Start 06/17/18 at 09:00 Polyethylene Glycol (miraLAX PACKET) 17 gm DAILY PO Last administered on at 09:52; Start 06/17/18 at 09:00 Sodium Chloride (Saline Mist Nasal) 1 erich PRN BID PRN NS Congestion; Start at 23:30 Cefepime HCl (Maxipime) 1 gm Q24H IVP Last administered on 06/19/18at 21:08; Start 06/17/18 at 22:00 Cefepime HCl (Maxipime) 1 gm ONCE ONCE IVP Last administered on 06/17/18at 00: 15; Start 06/17/18 at 00:00; Stop 06/17/18 at 00:01; Status DC Miscellaneous (Lidoderm Patch Removal) 1 ea QHS MC ; Start 06/17/18 at 21:00 Acetaminophen (Tylenol) 650 mg 1X PRN PRN PO PRE-TRANSFUSION; Start 06/17/18 at 05:15 Diphenhydramine HCl (Benadryl Oral Elixir) 12.5 mg 1X PRN PRN PO PRE- TRANSFUSION; Start 06/17/18 at 05:15 Diphenhydramine HCl (Benadryl) 25 mg PRN 1X PRN PO PRE-TRANSFUSION; Start 06/17 at 05:15 Daptomycin 360 mg/ Sodium Chloride 50 ml @ 100 mls/hr Q48H IV Last administered on 06/19/18at 08:45; Start 06/17/18 at 07:00 Micafungin Sodium 100 mg/Dextrose 100 ml @ 100 mls/hr Q24H IV Last administered on 06/20/18at 05:53; Start 06/17/18 at 06:30 Metronidazole (Flagyl) 500 mg Q8HRS PO Last administered on 06/20/18at 05:53; Start 06/17/18 at 06:30 Oxycodone HCl (OxyCONTIN) 10 mg Q12HR PO Last administered on 06/18/18at 20:45; Start 06/17/18 at 10:00; Stop 06/18/18 at 21:10; Status DC Lactobacillus Rhamnosus (Culturelle) 1 cap BID PO Last administered on at 08:43; Start 06/17/18 at 21:00 Sodium Chloride 1,000 ml @ 1,000 mls/hr Q1H PRN IV hypotension; Start 06/17/18 at 16:51; Stop 06/17/18 at 22:50; Status DC Albumin Human 200 ml @ 200 mls/hr 1X PRN PRN IV Hypotension; Start 06/17/18 at 17:00; Stop 06/17/18 at 22:59; Status DC Sodium Chloride 1,000 ml @ 400 mls/hr Q2H30M PRN IV PATENCY; Start 06/17/18 at 16:51; Stop 06/18/18 at 04:50; Status DC Info (PHARMACY MONITORING -- do not chart) 1 each PRN DAILY PRN MC SEE COMMENTS ; Start 06/17/18 at 17:00 Info (PHARMACY MONITORING -- do not chart) 1 each PRN DAILY PRN MC SEE COMMENTS ; Start 06/17/18 at 17:00; Status UNV Famotidine (Pepcid) 20 mg Q48H PO Last administered on 06/19/18at 21:07; Start 06/19/18 at 21:00 Carvedilol (Coreg) 12.5 mg BIDWMEALS PO Last administered on 06/20/18at 08:42; Start 06/18/18 at 17:00 Morphine Sulfate (Ms Contin) 15 mg BID PO Last administered on 06/19/18at 08:42 ; Start 06/19/18 at 09:00; Stop 06/19/18 at 13:03; Status DC Oxycodone/ Acetaminophen (Percocet 10/325) 1 tab PRN Q6HRS PRN PO PAIN Last administered on 06/19/18at 09:02; Start 06/18/18 at 21:15; Stop 06/19/18 at 13:04 ; Status DC Sodium Chloride 1,000 ml @ 1,000 mls/hr Q1H PRN IV hypotension; Start 06/19/18 at 07:02; Stop 06/19/18 at 13:01; Status DC Sodium Chloride (Normal Saline Flush) 10 ml 1X PRN PRN IV AP catheter pack; Start 06/19/18 at 07:15; Stop 06/20/18 at 07:14; Status DC Sodium Chloride (Normal Saline Flush) 10 ml 1X PRN PRN IV WALL INSULATION SPRAYER catheter pack; Start 06/19/18 at 07:15; Stop 06/20/18 at 07:14; Status DC Sodium Chloride 1,000 ml @ 400 mls/hr Q2H30M PRN IV PATENCY; Start 06/19/18 at 07:02; Stop 06/19/18 at 19:01; Status DC Info (PHARMACY MONITORING -- do not chart) 1 each PRN DAILY PRN MC SEE COMMENTS ; Start 06/19/18 at 07:15; Stop 06/19/18 at 07:15; Status DC Info (PHARMACY MONITORING -- do not chart) 1 each PRN DAILY PRN MC SEE COMMENTS ; Start 06/19/18 at 07:15; Stop 06/19/18 at 07:15; Status DC Darbepoetin Mauricio (Aranesp) 60 mcg WEEKLYHS SQ Last administered on 06/19/18at 21 :07; Start 06/19/18 at 21:00 Magnesium Sulfate 50 ml @ 25 mls/hr PRN DAILY PRN IV for Mag < 1.7 on am labs; Start 06/19/18 at 12:15 Morphine Sulfate (Ms Contin) 30 mg BID PO Last administered on 06/20/18at 08:41 ; Start 06/19/18 at 21:00 Oxycodone/ Acetaminophen (Percocet 10/325) 1 tab PRN Q4HRS PRN PO SEVERE PAIN Last administered on 06/20/18at 07:14; Start 06/19/18 at 13:15 Active Scripts Active Brilinta (Ticagrelor) 90 Mg Tablet 90 Mg PO BID 30 Days Reported Renvela (Sevelamer Carbonate) 800 Mg Tablet 2 Tab PO TID Melatonin 3 Mg Tablet 9 Mg PO QHS Lantus Solostar (Insulin Glargine,Hum.rec.anlog) 100 Unit/1 Ml Insuln.pen 15 Unit SQ QHS PRN Duoneb 0.5-3(2.5) Mg/3 Ml (Albuterol/Ipratropium) 3 Ml Ampul.neb 3 Ml NEB QID PRN Humalog (Insulin Lispro) 100 Unit/1 Ml Vial 100 Unit SQ TID Humalog (Insulin Lispro) 100 Unit/1 Ml Vial 5 Unit SQ TID PRN Guaifenesin 600 Mg Tablet.er 600 Mg PO BID [place] Saline (Sodium Chloride) 50 Ml [place] 1 [place] NS BID PRN Acetaminophen 500 Mg Tablet 650 Mg PO Q6HRS PRN Morphine Sulfate Er (Morphine Sulfate) 30 Mg Tablet.er 1 Tab PO BID Aspirin 81 Mg Tab.chew 1 Tab PO DAILY Calcitriol 0.25 Mcg Capsule 1 Cap PO DAILY Pepcid (Famotidine) 20 Mg Tablet 20 Mg PO HS Niacin 250 Mg Tablet 250 Mg PO BID Miralax (Polyethylene Glycol 3350) 17 Gm Powd.pack 1 Packet PO DAILY Hydralazine Hcl 10 Mg Tablet 1 Tab PO PRN TID PRN Oxycodone Hcl Immed.release (Oxycodone Hcl) 5 Mg Tablet 2 Tab PO PRN Q4HRS PRN Ferrous Sulfate 325 Mg Tablet 1 Tab PO DAILY Diphenhydramine Hcl 50 Mg Capsule 1 Cap PO PRN Q8HRS PRN Prochlorperazine Maleate 10 Mg Tablet 1 Tab PO PRN Q6HRS PRN Lidocaine 1 Each Adh..patch 1 Each TP PRN DAILY PRN Tegretol (Carbamazepine) 200 Mg Tablet 1 Tab PO BID Tramadol Hcl 50 Mg Tablet 50 Mg PO Q4HRS PRN Carvedilol (Carvedilol) 3.125 Mg Tablet 12.5 Mg PO BID Erythromycin (Erythromycin Base) 250 Mg Capsule.dr 250 Mg PO BID Cardizem Cd (Diltiazem Hcl) 180 Mg Cap.er.24h 120 Mg PO DAILY Amiodarone Hcl 200 Mg Tablet 1 Tab PO DAILY Lipitor (Atorvastatin Calcium) 80 Mg Tablet 80 Mg PO HS Docusate Sodium 100 Mg Capsule 1 Cap PO PRN PRN Vitals/I & O Vital Sign - Last 24 Hours 06/19/18 06/19/18 06/19/18 06/19/18 11:38 12:13 12:13 13:21 O2 Delivery Room Air Room Air Room Air Room Air 06/19/18 06/19/18 06/19/18 06/19/18 13:57 15:00 17:24 17:26 Temp 97.8 97.8 Pulse 78 78 Resp 20 B/P (MAP) 110/55 (73) 110/55 Pulse Ox 96 100 O2 Delivery Room Air Room Air Room Air 06/19/18 06/19/18 06/19/18 06/19/18 19:00 20:00 21:06 22:58 Temp 97.8 97.7 97.8 97.7 Pulse 84 83 Resp 17 16 B/P (MAP) 134/64 (87) 138/73 (94) Pulse Ox 98 100 100 O2 Delivery Room Air Room Air Room Air Room Air 06/20/18 06/20/18 06/20/18 06/20/18 01:06 02:39 03:00 07:00 Temp 97.5 97.7 97.5 97.7 Pulse 94 89 Resp 17 14 B/P (MAP) 107/48 (67) 132/57 (82) Pulse Ox 100 100 100 O2 Delivery Room Air Room Air Room Air Room Air 06/20/18 06/20/18 06/20/18 06/20/18 07:14 07:17 08:41 08:42 Pulse 89 B/P (MAP) 132/57 O2 Delivery Room Air Room Air Room Air 06/20/18 06/20/18 06/20/18 06/20/18 08:42 08:43 08:43 09:12 Pulse 89 89 B/P (MAP) 132/57 132/57 Pulse Ox 100 100 O2 Delivery Room Air Room Air Intake and Output 06/19/18 06/19/18 06/20/18 14:59 22:59 06:59 Intake Total 280 ml 60 ml 95 ml Balance 280 ml 60 ml 95 ml Nutrition Consultation Dietary Evaluation: Recommendations by RD: Increase Calorie Intake, Protein supplementation Comments: REC liberalize diet to regular to promote/encourage increased PO intake REC Rian BID (fruit punch) REC MVI - wound healing Expected Outcomes/Goals: PO intake to meet >75% est needs Interpretation of weight loss: >7.5% in 3 months Malnutrition Findings: Weight Status: Appropriate ROMI GOSS MD Jun 20, 2018 11:27
[2018-06-20 15:00] VITALS: BP 135/57
[2018-06-20] MEDS: NYSTATIN TOPICAL POWDER 15GM BOTTLE. TP SCH ×2 (16:18→22:29)
[2018-06-20 19:00] VITALS: BP 137/58
[2018-06-20] MEDS: PATCH REMOVAL. MC SCH (21:00)
[2018-06-20] MEDS: ZOLPIDEM 5 MG TABLET. PO SCH (21:00)
[2018-06-20] MEDS: ATORVASTATIN CALCIUM 40 MG TABLET. PO SCH (22:28)
[2018-06-20] MEDS: CEFEPIME HCL IV Push 1 GM VIAL. IVP SCH (22:29)
[2018-06-20] MEDS: DOCUSATE SODIUM 100 MG CAPSULE. PO PRN (22:57)
[2018-06-20 23:00] VITALS: BP 142/60
[2018-06-21 03:00] VITALS: BP 129/46
[2018-06-21] MEDS: metroNIDAZOLE 500 MG TABLET PO SCH ×3 (06:31→21:35)
[2018-06-21] MEDS: MICAFUNGIN 100 MG in IV DEXTROSE 5% 100ML 100 ML IV SCH (06:32)
[2018-06-21 07:00] VITALS: BP 142/31
[2018-06-21] MEDS: INSULIN LISPRO 300 UNITS/3 ML INSULN.PEN. SQ SCH ×3 (08:00→17:13)
[2018-06-21] MEDS: SEVELAMER CARBONATE 800 MG TABLET. PO SCH ×3 (08:06→17:10)
[2018-06-21] MEDS: POLYETHYLENE GLYCOL 3350 17 GM PACKET. PO SCH (09:00)
[2018-06-21] MEDS: MORPHINE ER 15 MG TABLET.ER PO SCH ×2 (09:00→21:00)
[2018-06-21] MEDS: NYSTATIN TOPICAL POWDER 15GM BOTTLE. TP SCH ×2 (09:00→21:36)
[2018-06-21] MEDS: NIACIN ER 250 MG TABLET.ER PO SCH ×2 (09:09→21:50)
[2018-06-21] MEDS: TICAGRELOR 90 MG TABLET. PO SCH ×2 (09:09→21:36)
[2018-06-21] MEDS: CALCITRIOL 0.25 MCG CAPSULE. PO SCH (09:09)
[2018-06-21] MEDS: FERROUS SULFATE 325 MG TABLET. PO SCH (09:09)
[2018-06-21] MEDS: LACTOBACILLUS RHAMNOSUS GG 1 CAPSULE. PO SCH ×2 (09:09→21:35)
[2018-06-21] MEDS: ASPIRIN CHEWABLE 81 MG TABLET. PO SCH (09:10)
[2018-06-21] MEDS: CARVEDILOL 12.5 MG TABLET. PO SCH ×2 (09:10→17:10)
[2018-06-21] MEDS: carBAMazepine 200 MG TABLET PO SCH ×2 (09:10→21:36)
[2018-06-21] MEDS: AMIODARONE HCL 200 MG TABLET. PO SCH (09:11)
[2018-06-21] MEDS: DOCUSATE SODIUM 100 MG CAPSULE. PO PRN (09:17)
[2018-06-21] MEDS: ERYTHROMYCIN BASE 250 MG TABLET PO SCH ×2 (09:23→21:36)
--- NOTE | 2018-06-21 09:40 | PDOC ---
Infectious Disease Note Subjective Subjective feeling good, says ready to go back to her rehab ROS ROS no n/v/d/sob/fever Vital Sign Vital Signs Vital Signs Date Time Temp Pulse Resp B/P (MAP) Pulse Ox O2 Delivery O2 Flow Rate FiO2 06/21/18 09:11 70 142/31 06/21/18 07:00 96.4 18 92 Room Air 96.4 06/21/18 02:30 2.0 Physical Exam PHYSICAL EXAM GENERAL: Sitting on the side of the bed, tired appearance, HEENT: Normal conjunctivae. Oral cavity, pharynx dry NECK: Supple, no JVD. LUNGS: Decreased in the bases. HEART: S1, S2. 1/6 murmur. ABDOMEN: Soft, nontender, no guarding or rebound. PD catheter is in place. EXTREMITIES: Without clubbing, cyanosis. SKIN: Without signs of generalized rash. PSYCHIATRIC: Affect is more bright today Labs Lab Laboratory Tests Test 06/20/18 11:30 06/20/18 17:02 06/20/18 22:27 06/21/18 06:37 Glucose (Fingerstick) 137 mg/dL (70-99) 153 mg/dL (70-99) 103 mg/dL (70-99) Hemoglobin 9.3 g/dL (12.0-15.5) Magnesium Level 2.5 mg/dL (1.8-2.4) Test 06/21/18 08:02 Glucose (Fingerstick) 111 mg/dL (70-99) Micro Microbiology 06/16/18 Blood Culture - Final, Complete 06/16/18 Blood Culture Result 1 (ROSALIND) - Final, Complete 06/16/18 Antimicrobic Susceptibility - Final, Complete Objective Assessment Sepsis - POA 06/16/2018 - 05/29 bacteremia, group B strep Fever - better Abx allergies Leukocytosis -s/p Solu-Medrol - better (also s/p PRBCs) Multiple wounds - Gen surg has evaluated and wound care following Anemia s/p 1 unit PRBCs 06/17 Encephalopathy - answers questions appropriately when awakened CKD on PD/HD RUE hematoma about the fistula on US h/o VRE, MRSA, C. diff Plan Plan of Care change antibiotics to iv cefazolin post HD for at least 2 wks will d/w Nephrology for this to happen at HD center if possible, so we do not need line Probiotics Wound care per WC team Need to off load Contact isolation DANDY LÓPEZ MD Jun 21, 2018 09:39
--- NOTE | 2018-06-21 09:43 | NUR ---
Patient left AC IV site swollen after IV antibiotic and painful, dc'd catheter, see interventions. Patient does not want IV restart at this time, wants to discuss oral medications with physicians. Dr. Rubi Dexter notified, making rounds now.
--- NOTE | 2018-06-21 09:53 | NUR ---
IP: Pt had a hx of VRE in a Left heal wound in 2014. Pt had L BKA. No hx of ESBL found. Pt may be removed from contact precautions.
--- NOTE | 2018-06-21 09:55 | PDOC ---
MARIS MI [employer] TECHNICIAN 06/21/18 0955: SURGICAL PROGRESS NOTE Subjective talking on phone in wheelchair, difficult to get back to bed Vital Signs Vital Signs Date Time Temp Pulse Resp B/P (MAP) Pulse Ox O2 Delivery O2 Flow Rate FiO2 06/21/18 09:11 70 142/31 06/21/18 07:00 96.4 18 92 Room Air 96.4 06/21/18 02:30 2.0 I&O Intake and Output 06/21/18 06:59 Intake Total 250 ml Balance 250 ml Intake Oral 150 ml IV Total 100 ml General: Alert, Oriented X3, Cooperative, No acute distress Abdomen: Soft Labs Laboratory Tests Test 06/19/18 12:03 06/19/18 16:41 06/19/18 20:37 06/20/18 04:30 Glucose (Fingerstick) 136 mg/dL (70-99) 144 mg/dL (70-99) 109 mg/dL (70-99) Magnesium Level 2.2 mg/dL (1.8-2.4) Test 06/20/18 07:43 06/20/18 11:30 06/20/18 17:02 06/20/18 22:27 Glucose (Fingerstick) 105 mg/dL (70-99) 137 mg/dL (70-99) 153 mg/dL (70-99) 103 mg/dL (70-99) Test 06/21/18 06:37 06/21/18 08:02 Hemoglobin 9.3 g/dL (12.0-15.5) Magnesium Level 2.5 mg/dL (1.8-2.4) Glucose (Fingerstick) 111 mg/dL (70-99) Laboratory Tests Test 06/20/18 11:30 06/20/18 17:02 06/20/18 22:27 06/21/18 06:37 Glucose (Fingerstick) 137 mg/dL (70-99) 153 mg/dL (70-99) 103 mg/dL (70-99) Hemoglobin 9.3 g/dL (12.0-15.5) Magnesium Level 2.5 mg/dL (1.8-2.4) Test 06/21/18 08:02 Glucose (Fingerstick) 111 mg/dL (70-99) Problem List Problems Medical Problems: (1) End-stage renal disease on hemodialysis Status: Acute (2) Sepsis Status: Acute Assessment/Plan viewed wound pics from last night superficial, no necrosis, some slough continue wound care no surgery plans CECE JOVEL MD 06/22/18 1153: SURGICAL PROGRESS NOTE Assessment/Plan Agree with above MARIS MI [employer] TECHNICIAN Jun 21, 2018 09:55 CECE JOVEL MD Jun 22, 2018 11:53
[2018-06-21] MEDS ORDERED: IV NORMAL SALINE 1000ML BAG 1,000 ML IV PRN ×2 (10:17)
[2018-06-21] MEDS ORDERED: DIALYSIS PATIENT. MC PRN ×2 (10:30)
--- NOTE | 2018-06-21 10:50 | NUR ---
D/W Dr. Mcbride patient IV infiltrated and she did not want restarted. OK to leave out for now. To D/W Dr.S. Dexter.
[2018-06-21 11:09] VITALS: BP 143/58
--- NOTE | 2018-06-21 11:55 | PDOC ---
PROGRESS NOTES Chief Complaint Chief Complaint acute Shortness of breath - with Hypoxia - w. acute diastolic CHF exacerbation w COPD exacerbation RUE hematoma - could be AV fistula infiltration vs pseudoaneurysm Right lower extremity swelling with skin breakdown - goes back to December 15, 2017, but this is much worse, will treat as cellulitis. Despite her allergies listed she did tolerate cephalosporins previously, aConsult ID Severe sepsis - empiric antibiotics for her RLE cellulitis as above Recent Right groin sx wound infection s/p i and d 02/01 and 02/05 - vascular surgery consulted Recent right leg PAD s/p R fem to pop bypass h/o L BKA - stable CAD w/ hx CABG, EF 50% - cont meds Diabetic retinopathy with VITREOUS HEMORRHAGE s/p sx, fu with [facility] Apr 09 - stable Vitreous hemorrhage, left > RT sec to DM - stable End-stage renal disease, on dialysis via AV fistula here at home per pt has been on PD - consult nephrology A- fib - amiodarone therapy Gastroparesis - on Erythromycin Left retinal optic disc drusen, bl blurry vision Acute on chronic decubitus ulcer - will have wound care to see. Will consult Dr. Solorio malnutrition History of Present Illness History of Present Illness SHe has lost a lot of weight, since the last time I saw her She feels ready to go back to medical [place] and she likes it there Poor PO - agreeable to appetite stimulant -claims she eat a lot of low salt junk food She has changed her DP OA from her sister to her [id number] since the sister did some financial changes when she was septic that she didn't was not aware of ID is checking with renal if able to give the IV cefazolin 2 weeks during dialysis I have updated social insurance analyst regarding this She is still blurry in terms of vision PLAN: Trial of Marinol Possibly medical [place] tomorrow if able to give IV cefazolin during the time of dialysis Vitals Vitals Vital Signs Date Time Temp Pulse Resp B/P (MAP) Pulse Ox O2 Delivery O2 Flow Rate FiO2 06/21/18 11:09 97.6 65 18 143/58 (86) 100 Room Air 97.6 06/21/18 02:30 2.0 Physical Exam Physical Exam GENERAL: Sitting on the side of the bed, tired appearance, HEENT: Normal conjunctivae. Oral cavity, pharynx dry NECK: Supple, no JVD. LUNGS: Decreased in the bases. HEART: S1, S2. 1/6 murmur. ABDOMEN: Soft, nontender, no guarding or rebound. PD catheter is in place. EXTREMITIES: Without clubbing, cyanosis. SKIN: Without signs of generalized rash. PSYCHIATRIC: Affect is more bright today General: Alert, Oriented X3, Cooperative, No acute distress Heart: Regular rate Lungs: Clear, Other Abdomen: Soft Extremities: No cyanosis, Other (strong palpable proximal bypass pulse. Strong triphasic and biphasic Doppler signals to distal bypass, right DP and PT. Foot is warm. Unable to assess motor function and incision due to patient's drowsiness. Her posterior right calf has superficial beginning stages or pressure ulcer. Her right arm AV graft has strong thrill and bruit proximally and distally. Right upper medial arm has large mass of mottled ecchymosis, this is mostly firm on palpation and nonpulsatile.) Skin: No rashes, Other (patient with severe right lower extremity skin tautness , dryness with scattered superficial scabbing, none of which appear to penetrate beyond epidermis. She has a dark thickened area of skin midfoot dorsal side. She has moderate right leg swelling. Skin is flaky. Right groin site is healed appropriately. No signs of infection the right groin. ) Labs LABS Laboratory Tests Test 06/20/18 17:02 06/20/18 22:27 06/21/18 06:37 06/21/18 08:02 Glucose (Fingerstick) 153 mg/dL (70-99) 103 mg/dL (70-99) 111 mg/dL (70-99) Hemoglobin 9.3 g/dL (12.0-15.5) Magnesium Level 2.5 mg/dL (1.8-2.4) Review of Systems Review of Systems A 14 point ROS was completed with the following noted as positive: Other systems reviewed and negative. \CONSTITUTIONAL: No fever or chills EYES: No recent changes SKIN: No rash or itching CARDIOVASCULAR: No chest pain, syncope, palpitations, or edema RESPIRATORY: No SOB or cough GASTROINTESTINAL: No nausea, vomiting or abdominal pain NEUROLOGICAL: No headaches or weakness ENDOCRINE: No cold or heat intolerance GENITOURINARY: No urgency or frequency of urination MUSCULOSKELETAL: No back pain or joint pain LYMPHATICS: No enlarged lymph nodes PSYCHIATRIC: No anxiety or depression Assessment and Plan Assessmemt and Plan Problems Medical Problems: (1) End-stage renal disease on hemodialysis Status: Acute (2) Sepsis Status: Acute Comment Review of Relevant I have reviewed the following items bert (where applicable) has been applied. Labs Laboratory Tests Test 06/19/18 12:03 06/19/18 16:41 06/19/18 20:37 06/20/18 04:30 Glucose (Fingerstick) 136 mg/dL (70-99) 144 mg/dL (70-99) 109 mg/dL (70-99) Magnesium Level 2.2 mg/dL (1.8-2.4) Test 06/20/18 07:43 06/20/18 11:30 06/20/18 17:02 06/20/18 22:27 Glucose (Fingerstick) 105 mg/dL (70-99) 137 mg/dL (70-99) 153 mg/dL (70-99) 103 mg/dL (70-99) Test 06/21/18 06:37 06/21/18 08:02 Hemoglobin 9.3 g/dL (12.0-15.5) Magnesium Level 2.5 mg/dL (1.8-2.4) Glucose (Fingerstick) 111 mg/dL (70-99) Laboratory Tests Test 06/20/18 17:02 06/20/18 22:27 06/21/18 06:37 06/21/18 08:02 Glucose (Fingerstick) 153 mg/dL (70-99) 103 mg/dL (70-99) 111 mg/dL (70-99) Hemoglobin 9.3 g/dL (12.0-15.5) Magnesium Level 2.5 mg/dL (1.8-2.4) Microbiology 06/16/18 Blood Culture - Final, Complete 06/16/18 Blood Culture Result 1 (ROSALIND) - Final, Complete 06/16/18 Antimicrobic Susceptibility - Final, Complete Medications Current Medications Albuterol/ Ipratropium (Duoneb) 3 ml 1X ONCE NEB Last administered on at 14:38; Start 06/16/18 at 14:15; Stop 06/16/18 at 14:16; Status DC Methylprednisolone Sodium Succinate (SOLU-Medrol 125MG VIAL) 125 mg 1X ONCE IV Last administered on 06/16/18 17:20; Start 06/16/18 at 16:00; Stop 06/16/18 at 16:01; Status DC Levofloxacin/ Dextrose 100 ml @ 100 mls/hr 1X ONCE IV Last administered on at 17:20; Start 06/16/18 at 16:45; Stop 06/16/18 at 17:44; Status DC Vancomycin HCl 250 ml @ 250 mls/hr 1X ONCE IV ; Start 06/16/18 at 16:45; Stop 06/16/18 at 17:44; Status UNV Vancomycin HCl 1.75 gm/Sodium Chloride 500 ml @ 250 mls/hr 1X ONCE IV Last administered on 06/16/18at 17:19; Start 06/16/18 at 17:45; Stop 06/16/18 at 19:44 ; Status DC Ondansetron HCl (Zofran) 4 mg PRN Q8HRS PRN IV NAUSEA/VOMITING; Start 06/16/18 at 17:15; Stop 06/17/18 at 17:14; Status DC Acetaminophen (Tylenol) 650 mg PRN Q4HRS PRN PO FEVER Last administered on 06/16at 18:21; Start 06/16/18 at 17:15; Stop 06/16/18 at 19:29; Status DC Hydromorphone HCl (Dilaudid) 0.5 mg PRN Q3HRS PRN IVP MILD PAIN Last administered on 06/19/18at 11:38; Start 06/16/18 at 19:30 Hydromorphone HCl (Dilaudid) 1 mg PRN Q3HRS PRN IVP MODERATE PAIN, SEVERE PAIN Last administered on 06/16/18at 19:37; Start 06/16/18 at 19:30 Acetaminophen/ Hydrocodone Bitart (Lortab 5/325) 1 tab PRN Q6HRS PRN PO PAIN Last administered on 06/18/18at 17:04; Start 06/16/18 at 19:30; Stop 06/18/18 at 21:10; Status DC Acetaminophen (Tylenol) 650 mg PRN Q6HRS PRN PO FEVER Last administered on 06/21at 05:00; Start 06/16/18 at 19:30 Insulin Human Lispro (HumaLOG) 0-5 UNITS TIDWMEALS SQ Last administered on 06/18 17:13; Start 06/17/18 at 08:00 Dextrose (Dextrose 50%-Water Syringe) 12.5 gm PRN Q15MIN PRN IV SEE COMMENTS; Start 06/16/18 at 19:30 Amiodarone HCl (Cordarone) 200 mg DAILY PO Last administered on 06/21/18 09:11 ; Start 06/17/18 at 09:00 Aspirin (Children'S Aspirin) 81 mg DAILYWBKFT PO Last administered on 09:10; Start 06/17/18 at 08:00 Carbamazepine (TEGretol) 200 mg BID PO Last administered on 06/21/18 09:10; Start 06/17/18 at 09:00 Carvedilol (Coreg) 12.5 mg BIDWMEALS PO ; Start 06/17/18 at 08:00; Stop at 09:07; Status DC Docusate Sodium (Colace) 100 mg PRN BID PRN PO CONSTIPATION Last administered on 06/21/18 09:17; Start 06/16/18 at 23:30 Famotidine (Pepcid) 20 mg HS PO Last administered on 06/17/18at 22:59; Start at 21:00; Stop 06/18/18 at 08:47; Status DC Ferrous Sulfate (Feosol) 325 mg DAILY PO Last administered on 06/21/18 09:09; Start 06/17/18 at 09:00 Guaifenesin (Mucinex) 600 mg BID PO Last administered on 06/20/18at 22:28; Start 06/17/18 at 09:00 Insulin Glargine (Lantus) 15 units PRN QHS PRN SQ diabetes Last administered on 06/17/18at 23:46; Start 06/16/18 at 23:30 Insulin Human Lispro (HumaLOG) 5 units PRN TID PRN SQ Diabetes; Start 06/16/18 at 23:30 Albuterol/ Ipratropium (Duoneb) 3 ml PRN QID PRN NEB shortness of breath Last administered on 06/19/18at 13:55; Start 06/16/18 at 23:30 Prochlorperazine Maleate (Compazine) 10 mg PRN Q6HRS PRN PO NAUSEA/VOMITING Last administered on 06/20/18 16:18; Start 06/16/18 at 23:30 Sevelamer Carbonate (Renvela) 1,600 mg TIDWMEALS PO Last administered on 08:06; Start 06/17/18 at 08:00 Ticagrelor (Brilinta) 90 mg BID PO Last administered on 06/21/18 09:09; Start 06/17/18 at 09:00 Tramadol HCl (Ultram) 50 mg PRN Q4HRS PRN PO HEADACHE Last administered on 06/18 12:12; Start 06/16/18 at 23:30 Atorvastatin Calcium (Lipitor) 80 mg HS PO Last administered on 06/20/18 22:28 ; Start 06/17/18 at 21:00 Calcitriol (Rocaltrol) 0.25 mcg DAILY PO Last administered on 06/21/18 09:09; Start 06/17/18 at 09:00 Diltiazem HCl (Cardizem 24hr Cd) 120 mg DAILY PO Last administered on 09:10; Start 06/17/18 at 09:00 Diphenhydramine HCl (Benadryl) 50 mg PRN Q8HRS PRN PO ITCHING; Start 06/16/18 at 23:30 Erythromycin (E-Mycin) 250 mg BID PO Last administered on 06/21/18 09:23; Start 06/17/18 at 09:00 Hydralazine HCl (Apresoline) 10 mg PRN TID PRN PO HYPERTENSION, SEE COMMENTS; Start 06/16/18 at 23:30 Lidocaine (Lidoderm) 1 patch PRN DAILY PRN TP PAIN; Start 06/16/18 at 23:30 Zolpidem Tartrate (Ambien) 5 mg QHS PO Last administered on 06/18/18 00:01; Start 06/17/18 at 21:00 Niacin (Slo-Niacin) 250 mg BID PO Last administered on 06/21/18 09:09; Start 06/17/18 at 09:00 Polyethylene Glycol (miraLAX PACKET) 17 gm DAILY PO Last administered on 2/21/ 19at 09:52; Start 06/17/18 at 09:00 Sodium Chloride (Saline Mist Nasal) 1 erich PRN BID PRN NS Congestion; Start at 23:30 Cefepime HCl (Maxipime) 1 gm Q24H IVP Last administered on 06/20/18at 22:29; Start 06/17/18 at 22:00 Cefepime HCl (Maxipime) 1 gm ONCE ONCE IVP Last administered on 06/17/18at 00: 15; Start 06/17/18 at 00:00; Stop 06/17/18 at 00:01; Status DC Miscellaneous (Lidoderm Patch Removal) 1 ea QHS MC Last administered on at 21:00; Start 06/17/18 at 21:00 Acetaminophen (Tylenol) 650 mg 1X PRN PRN PO PRE-TRANSFUSION; Start 06/17/18 at 05:15 Diphenhydramine HCl (Benadryl Oral Elixir) 12.5 mg 1X PRN PRN PO PRE- TRANSFUSION; Start 06/17/18 at 05:15 Diphenhydramine HCl (Benadryl) 25 mg PRN 1X PRN PO PRE-TRANSFUSION; Start 06/17 at 05:15 Daptomycin 360 mg/ Sodium Chloride 50 ml @ 100 mls/hr Q48H IV Last administered on 06/19/18at 08:45; Start 06/17/18 at 07:00; Stop 06/20/18 at 11:44 ; Status DC Micafungin Sodium 100 mg/Dextrose 100 ml @ 100 mls/hr Q24H IV Last administered on 06/21/18at 06:32; Start 06/17/18 at 06:30 Metronidazole (Flagyl) 500 mg Q8HRS PO Last administered on 06/21/18at 06:31; Start 06/17/18 at 06:30 Oxycodone HCl (OxyCONTIN) 10 mg Q12HR PO Last administered on 06/18/18at 20:45; Start 06/17/18 at 10:00; Stop 06/18/18 at 21:10; Status DC Lactobacillus Rhamnosus (Culturelle) 1 cap BID PO Last administered on at 09:09; Start 06/17/18 at 21:00 Sodium Chloride 1,000 ml @ 1,000 mls/hr Q1H PRN IV hypotension; Start 06/17/18 at 16:51; Stop 06/17/18 at 22:50; Status DC Albumin Human 200 ml @ 200 mls/hr 1X PRN PRN IV Hypotension; Start 06/17/18 at 17:00; Stop 06/17/18 at 22:59; Status DC Sodium Chloride 1,000 ml @ 400 mls/hr Q2H30M PRN IV PATENCY; Start 06/17/18 at 16:51; Stop 06/18/18 at 04:50; Status DC Info (PHARMACY MONITORING -- do not chart) 1 each PRN DAILY PRN MC SEE COMMENTS ; Start 06/17/18 at 17:00 Info (PHARMACY MONITORING -- do not chart) 1 each PRN DAILY PRN MC SEE COMMENTS ; Start 06/17/18 at 17:00; Status UNV Famotidine (Pepcid) 20 mg Q48H PO Last administered on 06/19/18at 21:07; Start 06/19/18 at 21:00 Carvedilol (Coreg) 12.5 mg BIDWMEALS PO Last administered on 06/21/18at 09:10; Start 06/18/18 at 17:00 Morphine Sulfate (Ms Contin) 15 mg BID PO Last administered on 06/19/18at 08:42 ; Start 06/19/18 at 09:00; Stop 06/19/18 at 13:03; Status DC Oxycodone/ Acetaminophen (Percocet 10/325) 1 tab PRN Q6HRS PRN PO PAIN Last administered on 06/19/18at 09:02; Start 06/18/18 at 21:15; Stop 06/19/18 at 13:04 ; Status DC Sodium Chloride 1,000 ml @ 1,000 mls/hr Q1H PRN IV hypotension; Start 06/19/18 at 07:02; Stop 06/19/18 at 13:01; Status DC Sodium Chloride (Normal Saline Flush) 10 ml 1X PRN PRN IV AP catheter pack; Start 06/19/18 at 07:15; Stop 06/20/18 at 07:14; Status DC Sodium Chloride (Normal Saline Flush) 10 ml 1X PRN PRN IV BOTTOM WORKER catheter pack; Start 06/19/18 at 07:15; Stop 06/20/18 at 07:14; Status DC Sodium Chloride 1,000 ml @ 400 mls/hr Q2H30M PRN IV PATENCY; Start 06/19/18 at 07:02; Stop 06/19/18 at 19:01; Status DC Info (PHARMACY MONITORING -- do not chart) 1 each PRN DAILY PRN MC SEE COMMENTS ; Start 06/19/18 at 07:15; Stop 06/19/18 at 07:15; Status DC Info (PHARMACY MONITORING -- do not chart) 1 each PRN DAILY PRN MC SEE COMMENTS ; Start 06/19/18 at 07:15; Stop 06/19/18 at 07:15; Status DC Darbepoetin Mauricio (Aranesp) 60 mcg WEEKLYHS SQ Last administered on 06/19/18at 21 :07; Start 06/19/18 at 21:00 Magnesium Sulfate 50 ml @ 25 mls/hr PRN DAILY PRN IV for Mag < 1.7 on am labs; Start 06/19/18 at 12:15 Morphine Sulfate (Ms Contin) 30 mg BID PO Last administered on 06/20/18at 22:32 ; Start 06/19/18 at 21:00 Oxycodone/ Acetaminophen (Percocet 10/325) 1 tab PRN Q4HRS PRN PO SEVERE PAIN Last administered on 06/20/18at 14:41; Start 06/19/18 at 13:15 Nystatin (Nystop) 1 erich BID TP Last administered on 06/20/18at 22:29; Start at 16:00 Sodium Chloride 1,000 ml @ 1,000 mls/hr Q1H PRN IV hypotension; Start 06/21/18 at 10:17; Stop 06/21/18 at 16:16 Sodium Chloride 1,000 ml @ 400 mls/hr Q2H30M PRN IV PATENCY; Start 06/21/18 at 10:17; Stop 06/21/18 at 22:16 Info (PHARMACY MONITORING -- do not chart) 1 each PRN DAILY PRN MC SEE COMMENTS ; Start 06/21/18 at 10:30 Info (PHARMACY MONITORING -- do not chart) 1 each PRN DAILY PRN MC SEE COMMENTS ; Start 06/21/18 at 10:30 Active Scripts Active Brilinta (Ticagrelor) 90 Mg Tablet 90 Mg PO BID 30 Days Reported Renvela (Sevelamer Carbonate) 800 Mg Tablet 2 Tab PO TID Melatonin 3 Mg Tablet 9 Mg PO QHS Lantus Solostar (Insulin Glargine,Hum.rec.anlog) 100 Unit/1 Ml Insuln.pen 15 Unit SQ QHS PRN Duoneb 0.5-3(2.5) Mg/3 Ml (Albuterol/Ipratropium) 3 Ml Ampul.neb 3 Ml NEB QID PRN Humalog (Insulin Lispro) 100 Unit/1 Ml Vial 100 Unit SQ TID Humalog (Insulin Lispro) 100 Unit/1 Ml Vial 5 Unit SQ TID PRN Guaifenesin 600 Mg Tablet.er 600 Mg PO BID [place] Saline (Sodium Chloride) 50 Ml [place] 1 [place] NS BID PRN Acetaminophen 500 Mg Tablet 650 Mg PO Q6HRS PRN Morphine Sulfate Er (Morphine Sulfate) 30 Mg Tablet.er 1 Tab PO BID Aspirin 81 Mg Tab.chew 1 Tab PO DAILY Calcitriol 0.25 Mcg Capsule 1 Cap PO DAILY Pepcid (Famotidine) 20 Mg Tablet 20 Mg PO HS Niacin 250 Mg Tablet 250 Mg PO BID Miralax (Polyethylene Glycol 3350) 17 Gm Powd.pack 1 Packet PO DAILY Hydralazine Hcl 10 Mg Tablet 1 Tab PO PRN TID PRN Oxycodone Hcl Immed.release (Oxycodone Hcl) 5 Mg Tablet 2 Tab PO PRN Q4HRS PRN Ferrous Sulfate 325 Mg Tablet 1 Tab PO DAILY Diphenhydramine Hcl 50 Mg Capsule 1 Cap PO PRN Q8HRS PRN Prochlorperazine Maleate 10 Mg Tablet 1 Tab PO PRN Q6HRS PRN Lidocaine 1 Each Adh..patch 1 Each TP PRN DAILY PRN Tegretol (Carbamazepine) 200 Mg Tablet 1 Tab PO BID Tramadol Hcl 50 Mg Tablet 50 Mg PO Q4HRS PRN Carvedilol (Carvedilol) 3.125 Mg Tablet 12.5 Mg PO BID Erythromycin (Erythromycin Base) 250 Mg Capsule.dr 250 Mg PO BID Cardizem Cd (Diltiazem Hcl) 180 Mg Cap.er.24h 120 Mg PO DAILY Amiodarone Hcl 200 Mg Tablet 1 Tab PO DAILY Lipitor (Atorvastatin Calcium) 80 Mg Tablet 80 Mg PO HS Docusate Sodium 100 Mg Capsule 1 Cap PO PRN PRN Vitals/I & O Vital Sign - Last 24 Hours 06/20/18 06/20/18 06/20/18 06/20/18 14:41 15:00 16:00 17:34 Temp 98.1 98.1 Pulse 70 70 Resp 18 B/P (MAP) 135/57 (83) 135/57 Pulse Ox 94 100 O2 Delivery Room Air Room Air Room Air 06/20/18 06/20/18 06/20/18 06/20/18 19:00 20:30 22:32 23:00 Temp 97.5 97.9 97.5 97.9 Pulse 65 69 Resp 16 16 B/P (MAP) 137/58 (84) 142/60 (87) Pulse Ox 98 100 O2 Delivery Room Air Room Air Room Air Room Air 06/21/18 06/21/18 06/21/18 06/21/18 02:30 03:00 07:00 08:00 Temp 97.9 96.4 97.9 96.4 Pulse 73 70 Resp 16 18 B/P (MAP) 129/46 (73) 142/31 (68) Pulse Ox 100 100 92 O2 Delivery Nasal Cannula Room Air Room Air Room Air O2 Flow Rate 2.0 06/21/18 06/21/18 06/21/18 06/21/18 09:10 09:10 09:11 11:09 Temp 97.6 97.6 Pulse 70 70 70 65 Resp 18 B/P (MAP) 142/31 142/31 142/31 143/58 (86) Pulse Ox 100 O2 Delivery Room Air Intake and Output 06/20/18 06/20/18 06/21/18 15:00 23:00 07:00 Intake Total 0 ml 150 ml Balance 0 ml 150 ml Nutrition Consultation Dietary Evaluation: Recommendations by RD: Increase Calorie Intake, Protein supplementation Comments: REC liberalize diet to regular to promote/encourage increased PO intake REC Rian BID (fruit punch) REC MVI - wound healing Expected Outcomes/Goals: PO intake to meet >75% est needs Interpretation of weight loss: >7.5% in 3 months Malnutrition Findings: Weight Status: Appropriate DAVID PINTO MD Jun 21, 2018 11:55
--- NOTE | 2018-06-21 13:00 | PDOC ---
Renal-Progress Notes Subjective Notes Notes TIRED History of Present Illness Hx of present illness STABLE Vitals Vitals Vital Signs Date Time Temp Pulse Resp B/P (MAP) Pulse Ox O2 Delivery O2 Flow Rate FiO2 06/21/18 11:09 97.6 65 18 143/58 (86) 100 Room Air 97.6 06/21/18 02:30 2.0 Weight Weight [ ] I.O. Intake and Output Intake and Output 06/21/18 06:59 Intake Total 250 ml Balance 250 ml Intake Oral 150 ml IV Total 100 ml Labs Labs Laboratory Tests Test 06/20/18 17:02 06/20/18 22:27 06/21/18 06:37 06/21/18 08:02 Glucose (Fingerstick) 153 mg/dL (70-99) 103 mg/dL (70-99) 111 mg/dL (70-99) Hemoglobin 9.3 g/dL (12.0-15.5) Magnesium Level 2.5 mg/dL (1.8-2.4) Hepatitis B Surface Antigen Nonreactive (Nonreactive) Test 06/21/18 12:03 Glucose (Fingerstick) 125 mg/dL (70-99) Micro Micro Microbiology 06/16/18 Blood Culture - Final, Complete 06/16/18 Blood Culture Result 1 (ROSALIND) - Final, Complete 06/16/18 Antimicrobic Susceptibility - Final, Complete Review of Systems Constitutional: yes: alert, oriented Ears/Nose/Throat: Yes: no symptom reported Eyes: Yes: no symptom reported Gastrointestional: Yes: no symptom reported Genitourinary: Yes: no symptom reported Musculoskeletal: Yes: no symptom reported Skin: Yes no symptom reported Psychiatric/Neurological: Yes: no symptom reported Endocrine: Yes: no symptom reported Physical Exam General Appearance: no apparent distress Skin: warm Heart: S1S2, RRR Abdomen: soft, bowel sounds present Genitourinary: bladder flat Extremities: pulses present Neurology: alert Musculoskeletal: Osteoarthritis Assessment Assessment IMP ESRD ANEMIA DM II HTN WOUNDS/INFECTION PLAN ANTIBIOTICS HD TOMORROW AVOID PERIPHERAL IVF'S OK WITH CENTRAL LINE PT OK WITH THIS WILL FOLLOW CHARLY ZAVALA MD Jun 21, 2018 12:59
[2018-06-21] MEDS: traMADol 50 MG TABLET PO PRN ×2 (14:04→18:56)
[2018-06-21 15:00] VITALS: BP 123/55
--- NOTE | 2018-06-21 15:22 | NUR ---
RAVI following pt. Pt completed and signed AD form. RAVI provided pt with notarized original AD and copies to take home. A copy placed on chart as well. RAVI also confirmed plan to [facility] upon dc. Discussed with Physician and pt might need IV abx. RAVI faxed updates to facility. Will continue to follow.
[2018-06-21] MEDS: DRONABINOL 2.5 MG CAPSULE. PO SCH (16:43)
[2018-06-21] MEDS: CEFEPIME HCL IV Push 1 GM VIAL. IVP SCH (18:19)
--- NOTE | 2018-06-21 18:21 | NUR ---
Dr. Mcbride called r/t IV antibiotic at 2200 this pm and patient has no IV access. She stated to skip dose this pm and she will D/W ID and nephrology 06/22 giving after dialysis.
[2018-06-21 19:00] VITALS: BP 123/52
[2018-06-21] MEDS: PATCH REMOVAL. MC SCH (21:00)
[2018-06-21] MEDS: ZOLPIDEM 5 MG TABLET. PO SCH (21:00)
[2018-06-21] MEDS: FAMOTIDINE 20 MG TABLET. PO SCH (21:36)
[2018-06-21] MEDS: ATORVASTATIN CALCIUM 40 MG TABLET. PO SCH (21:36)
--- NOTE | 2018-06-21 22:19 | NUR ---
Pt has PRN Lantus. BG was 167, patient stated that she would give herself 1 unit at home. Gave pt 1 unit of Lantus
[2018-06-21 23:00] VITALS: BP 143/54
[2018-06-22 03:00] VITALS: BP 133/46
[2018-06-22] MEDS: traMADol 50 MG TABLET PO PRN (04:26)
[2018-06-22] MEDS: metroNIDAZOLE 500 MG TABLET PO SCH ×2 (05:38→12:42)
[2018-06-22] MEDS: MICAFUNGIN 100 MG in IV DEXTROSE 5% 100ML 100 ML IV SCH (06:02)
[2018-06-22 07:00] VITALS: BP 132/50
[2018-06-22] MEDS: SEVELAMER CARBONATE 800 MG TABLET. PO SCH ×2 (08:00→12:00)
[2018-06-22] MEDS ORDERED: DIALYSIS PATIENT. MC PRN (08:00)
[2018-06-22] MEDS: CARVEDILOL 12.5 MG TABLET. PO SCH (08:00)
[2018-06-22] MEDS: ASPIRIN CHEWABLE 81 MG TABLET. PO SCH (08:00)
[2018-06-22] MEDS: INSULIN LISPRO 300 UNITS/3 ML INSULN.PEN. SQ SCH ×2 (08:00→12:00)
[2018-06-22] MEDS ORDERED: IV NORMAL SALINE 1000ML BAG 1,000 ML IV PRN ×2 (08:00)
[2018-06-22] MEDS ORDERED: LIDOCAINE 1% PF 2 ML VIAL. ONE ×2 (08:16→08:30)
[2018-06-22] MEDS ORDERED: LIDOCAINE 1% PF 2 ML VIAL. INJ ONE (08:25)
[2018-06-22] MEDS: FERROUS SULFATE 325 MG TABLET. PO SCH (09:00)
[2018-06-22] MEDS: NYSTATIN TOPICAL POWDER 15GM BOTTLE. TP SCH (09:00)
[2018-06-22] MEDS: LACTOBACILLUS RHAMNOSUS GG 1 CAPSULE. PO SCH (09:00)
[2018-06-22] MEDS: AMIODARONE HCL 200 MG TABLET. PO SCH (09:00)
[2018-06-22] MEDS: CALCITRIOL 0.25 MCG CAPSULE. PO SCH (09:00)
[2018-06-22] MEDS: NIACIN ER 250 MG TABLET.ER PO SCH (09:00)
[2018-06-22] MEDS: TICAGRELOR 90 MG TABLET. PO SCH (09:00)
[2018-06-22] MEDS: MORPHINE ER 15 MG TABLET.ER PO SCH (09:00)
[2018-06-22] MEDS: carBAMazepine 200 MG TABLET PO SCH (09:00)
[2018-06-22] MEDS: POLYETHYLENE GLYCOL 3350 17 GM PACKET. PO SCH (09:00)
[2018-06-22] MEDS: ERYTHROMYCIN BASE 250 MG TABLET PO SCH (09:00)
[2018-06-22] MEDS ORDERED: TRAM50TA PO (09:03)
[2018-06-22] MEDS ORDERED: NYST60PO TP (09:03)
[2018-06-22] MEDS ORDERED: MORP30TA3 PO (09:03)
--- NOTE | 2018-06-22 09:04 | DISCH ---
DISCHARGE DISCHARGE INFORMATION: DISCHARGE DATE: Jun 22, 2018 FINAL DIAGNOSIS Problems Medical Problems: (1) End-stage renal disease on hemodialysis Status: Acute (2) Sepsis Status: Acute CONDITION ON DISCHARGE: Stable CODE STATUS: Code Status: Full [facility]: SNF STAY <30 DAYS: Yes HOSPICE: HOSPICE: No HOSPICE EVAL & TREAT: No LTAC: ADMIT TO LTAC: No POST DISCHARGE ORDERS: ACTIVITY ORDERS: Activity as tolerated WEIGHT BEARING STATUS: As tolerated BATHING ORDERS: Shower-keep dressing dry DIET AFTER DISCHARGE: ADA WOUND/INCISION CARE: Other, see below CHECKS AFTER DISCHARGE: CHECKS AFTER DISCHARGE: Check blood press - daily, Check blood sugar, ac/hs TREATMENT/EQUIPMENT ORDERS: ADAPTIVE EQUIPMENT NEEDED: None, Front wheeled walker, Raised toilet seat Physical Therapy For: Evalulation/Treatment Occupational Therapy For: Evaluation/Treatment DISCHARGE MEDICATIONS: Home Meds Active Scripts Nystatin (NYSTOP) 60 Gm Powder, 1 IRMA TP BID for moist areas MDD 1, #1 MISC Prov:DAVID PINTO MD 06/22/18 Morphine Sulfate (MORPHINE SULFATE ER) 30 Mg Tablet.er, 1 TAB PO BID for Pain MDD 1, #30 TAB Prov:DAVID PINTO MD 06/22/18 Tramadol Hcl (TRAMADOL HCL) 50 Mg Tablet, 50 MG PO Q4HRS PRN for HEADACHE MDD 1 , #30 TAB Prov:DAVID PINTO MD 06/22/18 Ticagrelor (BRILINTA) 90 Mg Tablet, 90 MG PO BID for 30 Days, #60 TAB Prov:DAVID PINTO MD 02/08/17 Reported Medications Sevelamer Carbonate (RENVELA) 800 Mg Tablet, 2 TAB PO TID for ESRD, #540 TAB 3 Refills 06/16/18 Melatonin (MELATONIN) 3 Mg Tablet, 9 MG PO QHS for Insomnia, TAB 06/16/18 Insulin Glargine,Hum.rec.anlog (LANTUS SOLOSTAR) 100 Unit/1 Ml Insuln.pen, 15 UNIT SQ QHS PRN for diabetes, #15 ML 3 Refills 06/16/18 Ipratropium/Albuterol Sulfate (DUONEB 0.5-3(2.5) MG/3 ML) 3 Ml Ampul.neb, 3 ML NEB QID PRN for shortness of breath, EACH 2/20/19 Insulin Lispro (HUMALOG) 100 Unit/1 Ml Vial, 100 UNIT SQ TID for Diabetes, VIAL 06/16/18 Insulin Lispro (HUMALOG) 100 Unit/1 Ml Vial, 5 UNIT SQ TID PRN for Diabetes, VIAL 06/16/18 Guaifenesin (GUAIFENESIN) 600 Mg Tablet.er, 600 MG PO BID for Cough, TAB.SR 06/16/18 Sodium Chloride (AYR SALINE) 50 Ml Raymond, 1 SPRAY NS BID PRN for Congestion, # 50 ML 1 Refill 06/16/18 Acetaminophen (ACETAMINOPHEN) 500 Mg Tablet, 650 MG PO Q6HRS PRN for PAIN, TAB 06/16/18 Aspirin (ASPIRIN) 81 Mg Tab.chew, 1 TAB PO DAILY for HELP HEART, #30 TAB 3 Refills 03/09/18 Calcitriol (CALCITRIOL) 0.25 Mcg Capsule, 1 CAP PO DAILY for CALCUIM SUPPLEMENT , #30 CAP 5 Refills 03/09/18 Famotidine (PEPCID) 20 Mg Tablet, 20 MG PO HS for GERD, TAB 03/09/18 Niacin (NIACIN) 250 Mg Tablet, 250 MG PO BID for HIGH CHOLESTEROL, TAB.SR 03/09/18 Polyethylene Glycol 3350 (MIRALAX) 17 Gm Powd.pack, 1 PACKET PO DAILY for CONSTIPATION, #30 PACKET 3 Refills 03/09/18 Hydralazine Hcl (HYDRALAZINE HCL) 10 Mg Tablet, 1 TAB PO PRN TID PRN for HYPERTENSION, SEE COMMENTS, #60 TAB 3 Refills 03/09/18 Oxycodone Hcl (OXYCODONE HCL IMMED.RELEASE ) 5 Mg Tablet, 2 TAB PO PRN Q4HRS PRN for PAIN, #120 TAB 03/09/18 Ferrous Sulfate (FERROUS SULFATE) 325 Mg Tablet, 1 TAB PO DAILY for IRON SUPPLEMENT, #30 TAB 3 Refills 03/09/18 Diphenhydramine Hcl (DIPHENHYDRAMINE HCL) 50 Mg Capsule, 1 CAP PO PRN Q8HRS PRN for ITCHING, #30 CAP 1 Refill 03/09/18 Prochlorperazine Maleate (PROCHLORPERAZINE MALEATE) 10 Mg Tablet, 1 TAB PO PRN Q6HRS PRN for NAUSEA/VOMITING, #30 TAB 3 Refills 03/09/18 Lidocaine (Lidocaine) 1 Each Adh..patch, 1 EACH TP PRN DAILY PRN for PAIN, PATCH 01/27/18 Carbamazepine (TEGRETOL) 200 Mg Tablet, 1 TAB PO BID, #60 TAB 1 Refill 12/21/17 Carvedilol (CARVEDILOL ) 3.125 Mg Tablet, 12.5 MG PO BID, #60 TAB 3 Refills 06/27/17 Erythromycin Base (ERYTHROMYCIN) 250 Mg Capsule.dr, 250 MG PO BID, CAP 06/24/17 Diltiazem Hcl (CARDIZEM CD) 180 Mg Cap.er.24h, 120 MG PO DAILY for FOR HYPERTENSION, #30 CAP 0 Refills 06/08/17 Amiodarone Hcl (AMIODARONE HCL) 200 Mg Tablet, 1 TAB PO DAILY, #90 TAB 1 Refill 06/08/17 Atorvastatin Calcium (LIPITOR) 80 Mg Tablet, 80 MG PO HS for FOR CHOLESTEROL, # 30 TAB 0 Refills 12/06/14 Docusate Sodium (DOCUSATE SODIUM) 100 Mg Capsule, 1 CAP PO PRN PRN for CONSTIPATION, #30 CAP 12/05/14 DAVID PINTO MD Jun 22, 2018 09:04
[2018-06-22 09:16] LABS: ALBUMIN 2.5 g/dL (3.4-5.0); CALCIUM 8.7 mg/dL (8.5-10.1); CREATININE 7.2 mg/dL (0.6-1.0); MAGNESIUM 2.4 mg/dL (1.8-2.4); PHOSPHORUS 5.5 mg/dL (2.6-4.7); POTASSIUM 5.3 mmol/L (3.5-5.1)
--- NOTE | 2018-06-22 09:19 | NUR ---
[facility]VI phoned and faxed orders to [facility]. Pt will transport via facility arranged w/c regan at 1330. Packet on chart. RN notified. Addendum: 06/22/18 at 1145 by GEETHA RODRIGUES Pt notified of plan and agreeable. She reported she will notify her family.
--- NOTE | 2018-06-22 11:01 | PDOC ---
Infectious Disease Note Subjective Subjective sleepy on HD ROS ROS no n/v/d/fever/sob per RN Vital Sign Vital Signs Vital Signs Date Time Temp Pulse Resp B/P (MAP) Pulse Ox O2 Delivery O2 Flow Rate FiO2 06/22/18 07:00 98.1 67 18 132/50 (77) 97 Room Air 98.1 06/21/18 18:56 2.0 Physical Exam PHYSICAL EXAM GENERAL: Sitting on the side of the bed, tired appearance, HEENT: Normal conjunctivae. Oral cavity, pharynx dry NECK: Supple, no JVD. LUNGS: Decreased in the bases. HEART: S1, S2. 1/6 murmur. ABDOMEN: Soft, nontender, no guarding or rebound. PD catheter is in place. EXTREMITIES: Without clubbing, cyanosis. SKIN: Without signs of generalized rash. PSYCHIATRIC: Affect is more bright today Labs Lab Laboratory Tests Test 06/21/18 12:03 06/21/18 16:41 06/21/18 20:21 06/22/18 06:58 Glucose (Fingerstick) 125 mg/dL (70-99) 171 mg/dL (70-99) 167 mg/dL (70-99) 97 mg/dL (70-99) Test 06/22/18 08:00 Sodium Level 135 mmol/L (136-145) Potassium Level 5.3 mmol/L (3.5-5.1) Chloride Level 94 mmol/L (98-107) Carbon Dioxide Level 27 mmol/L (21-32) Anion Gap 14 (6-14) Blood Urea Nitrogen 93 mg/dL (7-20) Creatinine 7.2 mg/dL (0.6-1.0) Estimated GFR (Cockcroft-Gault) 6.0 Glucose Level 106 mg/dL (70-99) Calcium Level 8.7 mg/dL (8.5-10.1) Phosphorus Level 5.5 mg/dL (2.6-4.7) Magnesium Level 2.4 mg/dL (1.8-2.4) Albumin 2.5 g/dL (3.4-5.0) Micro Microbiology 06/16/18 Blood Culture - Final, Complete 06/16/18 Blood Culture Result 1 (ROSALIND) - Final, Complete 06/16/18 Antimicrobic Susceptibility - Final, Complete Objective Assessment Sepsis - POA 06/16/2018 - 05/29 bacteremia, group B strep Fever - better Abx allergies Leukocytosis -s/p Solu-Medrol - better (also s/p PRBCs) Multiple wounds - Gen surg has evaluated and wound care following Anemia s/p 1 unit PRBCs 06/17 Encephalopathy - answers questions appropriately when awakened CKD on PD/HD RUE hematoma about the fistula on US h/o VRE, MRSA, C. diff Plan Plan of Care iv cefazolin post HD for at least 2 wks d/w Nephrology Dr Guy for this to happen at HD center if possible, so we do not need line Probiotics Wound care per WC team Need to off load Contact isolation repeat bc and ok to d/c today f/u with us in 2 wks DANDY LÓPEZ MD Jun 22, 2018 11:00
[2018-06-22] MEDS: DRONABINOL 2.5 MG CAPSULE. PO SCH (11:30)
--- NOTE | 2018-06-22 12:18 | PDOC3 ---
Discharge Summary Visit Information Date of Admission: Jun 16, 2018 Date of Discharge: Jun 22, 2018 Admitting Diagnosis Comment: acute Shortness of breath - with Hypoxia - w. acute diastolic CHF exacerbation w COPD exacerbation RUE hematoma - could be AV fistula infiltration vs pseudoaneurysm Right lower extremity swelling with skin breakdown - goes back to December 15, 2017, but this is much worse, will treat as cellulitis. Despite her allergies listed she did tolerate cephalosporins previously, aConsult ID Severe sepsis - empiric antibiotics for her RLE cellulitis as above Recent Right groin sx wound infection s/p i and d 02/01 and 02/05 - vascular surgery consulted Recent right leg PAD s/p R fem to pop bypass h/o L BKA - stable CAD w/ hx CABG, EF 50% - cont meds Diabetic retinopathy with VITREOUS HEMORRHAGE s/p sx, fu with [facility] Apr 09 - stable Vitreous hemorrhage, left > RT sec to DM - stable End-stage renal disease, on dialysis via AV fistula here at home per pt has been on PD - consult nephrology A- fib - amiodarone therapy Gastroparesis - on Erythromycin Left retinal optic disc drusen, bl blurry vision Acute on chronic decubitus ulcer - will have wound care to see. Will consult Dr. Osmin ogden Final Diagnosis Problems Medical Problems: (1) End-stage renal disease on hemodialysis Status: Acute (2) Sepsis Status: Acute Brief Hospital Course Allergies Allergies Coded Allergies Type Severity Reaction Last Updated Verified Sulfa (Sulfonamide Antibiotics) Allergy Severe Anaphylaxis 03/10/18 Yes meropenem Allergy Intermediate Rash 03/10/18 Yes piperacillin Allergy Intermediate Rash 03/10/18 Yes strawberry Allergy Intermediate 03/10/18 Yes tazobactam Allergy Intermediate 03/10/18 Yes cefazolin Adverse Reaction Intermediate Itching 03/10/18 Yes fentanyl Adverse Reaction Intermediate Nausea and Vomiting 02/05/18 Yes Vital Signs Vital Signs Date Time Temp Pulse Resp B/P (MAP) Pulse Ox O2 Delivery O2 Flow Rate FiO2 06/22/18 07:00 98.1 67 18 132/50 (77) 97 Room Air 98.1 06/21/18 18:56 2.0 Lab Results Laboratory Tests Test 06/20/18 17:02 06/20/18 22:27 06/21/18 06:37 06/21/18 08:02 Glucose (Fingerstick) 153 mg/dL (70-99) 103 mg/dL (70-99) 111 mg/dL (70-99) Hemoglobin 9.3 g/dL (12.0-15.5) Magnesium Level 2.5 mg/dL (1.8-2.4) Hepatitis B Surface Antigen Nonreactive (Nonreactive) Test 06/21/18 12:03 06/21/18 16:41 06/21/18 20:21 06/22/18 06:58 Glucose (Fingerstick) 125 mg/dL (70-99) 171 mg/dL (70-99) 167 mg/dL (70-99) 97 mg/dL (70-99) Test 06/22/18 08:00 Sodium Level 135 mmol/L (136-145) Potassium Level 5.3 mmol/L (3.5-5.1) Chloride Level 94 mmol/L (98-107) Carbon Dioxide Level 27 mmol/L (21-32) Anion Gap 14 (6-14) Blood Urea Nitrogen 93 mg/dL (7-20) Creatinine 7.2 mg/dL (0.6-1.0) Estimated GFR (Cockcroft-Gault) 6.0 Glucose Level 106 mg/dL (70-99) Calcium Level 8.7 mg/dL (8.5-10.1) Phosphorus Level 5.5 mg/dL (2.6-4.7) Magnesium Level 2.4 mg/dL (1.8-2.4) Albumin 2.5 g/dL (3.4-5.0) Laboratory Tests Test 06/21/18 16:41 06/21/18 20:21 06/22/18 06:58 06/22/18 08:00 Glucose (Fingerstick) 171 mg/dL (70-99) 167 mg/dL (70-99) 97 mg/dL (70-99) Sodium Level 135 mmol/L (136-145) Potassium Level 5.3 mmol/L (3.5-5.1) Chloride Level 94 mmol/L (98-107) Carbon Dioxide Level 27 mmol/L (21-32) Anion Gap 14 (6-14) Blood Urea Nitrogen 93 mg/dL (7-20) Creatinine 7.2 mg/dL (0.6-1.0) Estimated GFR (Cockcroft-Gault) 6.0 Glucose Level 106 mg/dL (70-99) Calcium Level 8.7 mg/dL (8.5-10.1) Phosphorus Level 5.5 mg/dL (2.6-4.7) Magnesium Level 2.4 mg/dL (1.8-2.4) Albumin 2.5 g/dL (3.4-5.0) Brief Hospital Course Ms. Rosenbaum is a 52 old female known to me she has a lot of medical history per just admitted in one of her exacerbations of her chronic medical history. But essentially we have no change in medications. She will go back to rehabilitation she likes it there. She did lose weight. She has so-so appetite. But losing weight for her is a good thing actually. She still cannot see and she follows up with [facility] after the vitreous hemorrhage intervention. She has a follow-up with Dr. Reina in July 01. Infectious disease has okay discharge and to continue IV cefazolin post dialysis for 2 weeks Consults performed by ID, renal, vasc surgery Procedure is performed dialysis But getting Flagyl 500 by mouth every 8 year-I will discuss with ID if she continues this at rehabilitation Patient seen and examined, discussed with drywall taper helper Information Condition at Discharge: Stable Disposition/Orders: Other (snu) Scheduled Amiodarone Hcl (Amiodarone Hcl) 200 Mg Tablet, 1 TAB PO DAILY, #90 Ref 1 ( Reported) Entered as Reported by: ADINA STRATTON on 06/08/171616 Last Action: Continued on 06/16/182319 by JEREMIAS VERDUGO MD Aspirin (Aspirin) 81 Mg Tab.chew, 1 TAB PO DAILY for HELP HEART, #30 Ref 3 ( Reported) Entered as Reported by: ROSEY DIOR on 03/09/182017 Last Action: Continued on 06/16/182320 by JEREMIAS VERDUGO MD Atorvastatin Calcium (Lipitor) 80 Mg Tablet, 80 MG PO HS for FOR CHOLESTEROL, # 30 Ref 0 (Reported) Entered as Reported by: TEQUILA HAM on 12/06/14 08 Last Action: Converted on 06/16/182320 by JEREMIAS VERDUGO MD Calcitriol (Calcitriol) 0.25 Mcg Capsule, 1 CAP PO DAILY for CALCUIM SUPPLEMENT , #30 Ref 5 (Reported) Entered as Reported by: ROSEY DIOR on 03/09/182016 Last Action: Converted on 06/16/182320 by JEREMIAS VERDUGO MD Carbamazepine (Tegretol) 200 Mg Tablet, 1 TAB PO BID, #60 Ref 1 (Reported) Entered as Reported by: LASHAE STEWART on 12/21/17 1334 Last Action: Continued on 06/16/182320 by JEREMIAS VERDUGO MD Carvedilol (Carvedilol ) 3.125 Mg Tablet, 12.5 MG PO BID, #60 Ref 3 (Reported) Entered as Reported by: AMBER STERN on 06/27/17 1400 Last Action: Continued on 06/16/182320 by JEREMIAS VERDUGO MD Diltiazem Hcl (Cardizem Cd) 180 Mg Cap.er.24h, 120 MG PO DAILY for FOR HYPERTENSION, #30 Ref 0 (Reported) Entered as Reported by: ADINA STRATTON on 06/08/17 1619 Last Action: Converted on 06/16/182320 by JEREMIAS VERDUGO MD Erythromycin Base (Erythromycin) 250 Mg Capsule.dr, 250 MG PO BID, (Reported) Entered as Reported by: NILA GARCIA on 06/24/17 1527 Last Action: Converted on 06/16/182320 by JEREMIAS VERDUGO MD Famotidine (Pepcid) 20 Mg Tablet, 20 MG PO HS for GERD, (Reported) Entered as Reported by: ROSEY DIOR on 03/09/182015 Last Action: Continued on 06/16/182320 by JEREMIAS VERDUGO MD Ferrous Sulfate (Ferrous Sulfate) 325 Mg Tablet, 1 TAB PO DAILY for IRON SUPPLEMENT, #30 Ref 3 (Reported) Entered as Reported by: ROSEY DIOR on 03/09/182002 Last Action: Continued on 06/16/182320 by JEREMIAS VERDUGO MD Guaifenesin (Guaifenesin) 600 Mg Tablet.er, 600 MG PO BID for Cough, (Reported) Entered as Reported by: MORE HOWARD on 06/16/182203 Last Action: Continued on 06/16/182320 by JEREMIAS VERDUGO MD Insulin Lispro (Humalog) 100 Unit/1 Ml Vial, 100 UNIT SQ TID for Diabetes, ( Reported) Entered as Reported by: MORE HOWARD on 06/16/182203 Last Action: HELD on 06/16/182319 by JEREMIAS VERDUGO MD Melatonin (Melatonin) 3 Mg Tablet, 9 MG PO QHS for Insomnia, (Reported) Entered as Reported by: MORE HOWARD on 06/16/182203 Last Action: Converted on 06/16/182319 by JEREMIAS VERDUGO MD Morphine Sulfate (Morphine Sulfate Er) 30 Mg Tablet.er, 1 TAB PO BID for Pain MDD 1, #30 Prescribed by: DAVID PINTO on 06/22/18 0903 Niacin (Niacin) 250 Mg Tablet, 250 MG PO BID for HIGH CHOLESTEROL, (Reported) Entered as Reported by: ROSEY DIOR on 03/09/182013 Last Action: Converted on 06/16/182319 by JEREMIAS VERDUGO MD Nystatin (Nystop) 60 Gm Powder, 1 IRMA TP BID for moist areas MDD 1, #1 Prescribed by: DAVID PINTO on 06/22/18 0903 Polyethylene Glycol 3350 (Miralax) 17 Gm Powd.pack, 1 PACKET PO DAILY for CONSTIPATION, #30 Ref 3 (Reported) Entered as Reported by: ROSEY DIOR on 03/09/182011 Last Action: Converted on 06/16/182319 by JEREMIAS VERDUGO MD Sevelamer Carbonate (Renvela) 800 Mg Tablet, 2 TAB PO TID for ESRD, #540 Ref 3 ( Reported) Entered as Reported by: MORE HOWARD on 06/16/182203 Last Action: Continued on 06/16/182320 by JEREMIAS VERDUGO MD Ticagrelor (Brilinta) 90 Mg Tablet, 90 MG PO BID for 30 Days, #60 Prescribed by: DAVID PINTO on 02/08/17 1338 Last Action: Continued on 06/16/182320 by JEREMIAS VERDUGO MD Scheduled PRN Acetaminophen (Acetaminophen) 500 Mg Tablet, 650 MG PO Q6HRS PRN for PAIN, ( Reported) Entered as Reported by: MORE HOWARD on 06/16/182203 Last Action: HELD on 06/16/182319 by JEREMIAS VERDUGO MD Diphenhydramine Hcl (Diphenhydramine Hcl) 50 Mg Capsule, 1 CAP PO PRN Q8HRS PRN for ITCHING, #30 Ref 1 (Reported) Entered as Reported by: ROSEY DIOR on 03/09/181956 Last Action: Converted on 06/16/182320 by JEREMIAS VERDUGO MD Docusate Sodium (Docusate Sodium) 100 Mg Capsule, 1 CAP PO PRN PRN for CONSTIPATION, #30 (Reported) Entered as Reported by: KAMAR ROBIN on 12/05/14 1840 Last Action: Continued on 06/16/182320 by JEREMIAS VERDUGO MD Hydralazine Hcl (Hydralazine Hcl) 10 Mg Tablet, 1 TAB PO PRN TID PRN for HYPERTENSION, SEE COMMENTS, #60 Ref 3 (Reported) Entered as Reported by: ROSEY DIOR on 03/09/182010 Last Action: Converted on 06/16/182320 by JEREMIAS VERDUGO MD Insulin Glargine,Hum.rec.anlog (Lantus Solostar) 100 Unit/1 Ml Insuln.pen, 15 UNIT SQ QHS PRN for diabetes, #15 Ref 3 (Reported) Entered as Reported by: MORE HOWARD on 06/16/182203 Last Action: Continued on 06/16/182320 by JEREMIAS VERDUGO MD Insulin Lispro (Humalog) 100 Unit/1 Ml Vial, 5 UNIT SQ TID PRN for Diabetes, ( Reported) Entered as Reported by: MORE HOWARD on 06/16/182203 Last Action: Continued on 06/16/182320 by JEREMIAS VERDUGO MD Ipratropium/Albuterol Sulfate (Duoneb 0.5-3(2.5) Mg/3 Ml) 3 Ml Ampul.neb, 3 ML NEB QID PRN for shortness of breath, (Reported) Entered as Reported by: MORE HOWARD on 06/16/182203 Last Action: Continued on 06/16/182320 by JEREMIAS VERDUGO MD Lidocaine (Lidocaine) 1 Each Adh..patch, 1 EACH TP PRN DAILY PRN for PAIN, ( Reported) Entered as Reported by: RAMIRO HARGROVE on 01/27/18 0105 Last Action: Converted on 06/16/182320 by JEREMIAS VERDUGO MD Oxycodone Hcl (Oxycodone Hcl Immed.release ) 5 Mg Tablet, 2 TAB PO PRN Q4HRS PRN for PAIN, #120 (Reported) Entered as Reported by: ROSEY DIOR on 03/09/182009 Last Action: HELD on 06/16/182319 by JEREMIAS VERDUGO MD Prochlorperazine Maleate (Prochlorperazine Maleate) 10 Mg Tablet, 1 TAB PO PRN Q6HRS PRN for NAUSEA/VOMITING, #30 Ref 3 (Reported) Entered as Reported by: ROSEY DIOR on 03/09/181949 Last Action: Continued on 06/16/182320 by JEREMIAS VERDUGO MD Sodium Chloride ([place] Saline) 50 Ml [place], 1 SPRAY NS BID PRN for Congestion, # 50 Ref 1 (Reported) Entered as Reported by: MORE HOWARD on 06/16/182203 Last Action: Converted on 06/16/182319 by JEREMIAS VERDUGO MD Tramadol Hcl (Tramadol Hcl) 50 Mg Tablet, 50 MG PO Q4HRS PRN for HEADACHE MDD 1 , #30 Prescribed by: DAVID PINTO on 06/22/18902 DAVID PINTO MD Jun 22, 2018 12:18
--- NOTE | 2018-06-22 13:36 | NUR ---
Discharge Note: JAMAL BOSE HARVEY Discharge instructions and discharge home medications reviewed with Patient and a copy given. All questions have been answered and understanding verbalized. Discontinued lines and drains: peripheral iv. Patient discharged to Rehab Facility with Ambulance Personnel via Wheelchair
--- NOTE | 2018-06-22 14:59 | PDOC ---
Renal-Progress Notes Subjective Notes Notes NONE, PT SEEN EARLIER TODAY History of Present Illness Hx of present illness STABLE Vitals Vitals Vital Signs Date Time Temp Pulse Resp B/P (MAP) Pulse Ox O2 Delivery O2 Flow Rate FiO2 06/22/18 08:00 Room Air 2.0 06/22/18 07:00 98.1 67 18 132/50 (77) 97 98.1 Weight Weight [ ] I.O. Intake and Output Intake and Output 06/22/18 07:00 Intake Total 490 ml Output Total 0 ml Balance 490 ml Intake Oral 390 ml IV Total 100 ml Output Urine Total 0 ml Labs Labs Laboratory Tests Test 06/21/18 16:41 06/21/18 20:21 06/22/18 06:58 06/22/18 08:00 Glucose (Fingerstick) 171 mg/dL (70-99) 167 mg/dL (70-99) 97 mg/dL (70-99) Sodium Level 135 mmol/L (136-145) Potassium Level 5.3 mmol/L (3.5-5.1) Chloride Level 94 mmol/L (98-107) Carbon Dioxide Level 27 mmol/L (21-32) Anion Gap 14 (6-14) Blood Urea Nitrogen 93 mg/dL (7-20) Creatinine 7.2 mg/dL (0.6-1.0) Estimated GFR (Cockcroft-Gault) 6.0 Glucose Level 106 mg/dL (70-99) Calcium Level 8.7 mg/dL (8.5-10.1) Phosphorus Level 5.5 mg/dL (2.6-4.7) Magnesium Level 2.4 mg/dL (1.8-2.4) Albumin 2.5 g/dL (3.4-5.0) Micro Micro Microbiology 06/16/18 Blood Culture - Final, Complete 06/16/18 Blood Culture Result 1 (ROSALIND) - Final, Complete 06/16/18 Antimicrobic Susceptibility - Final, Complete Review of Systems Constitutional: yes: alert, oriented Ears/Nose/Throat: Yes: no symptom reported Eyes: Yes: no symptom reported Gastrointestional: Yes: no symptom reported Genitourinary: Yes: no symptom reported Musculoskeletal: Yes: no symptom reported Skin: Yes no symptom reported Psychiatric/Neurological: Yes: no symptom reported Endocrine: Yes: no symptom reported Physical Exam General Appearance: no apparent distress Skin: warm Heart: S1S2, RRR Abdomen: soft, bowel sounds present Genitourinary: bladder flat Extremities: pulses present Neurology: alert Musculoskeletal: Osteoarthritis Assessment Assessment IMP ESRD ANEMIA DM II HTN WOUNDS/INFECTION PLAN ANTIBIOTICS HD TODAY UF TO DW I ARRANGED FOR HER OP ANCEF D/W ID CHARLY ZAVALA MD Jun 22, 2018 14:59
== END 2018-06-22 13:37 | DRG 871 ==
LOC: ER 13:43 → 1 WEST ICU 17:28 → 5 NORTH 06-18 16:44
PROVIDERS: ADMIT Internal Medicine; ATTEND Internal Medicine
PROC: 30233N1 Transfusion of Nonautologous Red Blood Cells into Peripheral Vein, Percutaneous Approach (ICD-10-PCS; principal; 2018-06-16)
PROC: 5A1D70Z Performance of Urinary Filtration, Intermittent, Less than 6 Hours Per Day (ICD-10-PCS; 2018-06-17)
PROC: 5A1D70Z Performance of Urinary Filtration, Intermittent, Less than 6 Hours Per Day (ICD-10-PCS; 2018-06-19)
PROC: 5A1D70Z Performance of Urinary Filtration, Intermittent, Less than 6 Hours Per Day (ICD-10-PCS; 2018-06-21)
PROC: 5A1D70Z Performance of Urinary Filtration, Intermittent, Less than 6 Hours Per Day (ICD-10-PCS; 2018-06-22)
DX: A40.1 Sepsis due to streptococcus, group B (principal); N18.6 End stage renal disease; I50.33 Acute on chronic diastolic (congestive) heart failure; L03.115 Cellulitis of right lower limb; I13.2 Hypertensive heart and chronic kidney disease with heart failure and with stage 5 chronic kidney disease, or end stage renal disease; G93.40 Encephalopathy, unspecified; J44.1 Chronic obstructive pulmonary disease with (acute) exacerbation; R65.20 Severe sepsis without septic shock; Z99.2 Dependence on renal dialysis; E11.22 Type 2 diabetes mellitus with diabetic chronic kidney disease; D64.9 Anemia, unspecified; E11.319 Type 2 diabetes mellitus with unspecified diabetic retinopathy without macular edema; E11.43 Type 2 diabetes mellitus with diabetic autonomic (poly)neuropathy; E11.51 Type 2 diabetes mellitus with diabetic peripheral angiopathy without gangrene; E78.00 Pure hypercholesterolemia, unspecified; E78.5 Hyperlipidemia, unspecified; F17.210 Nicotine dependence, cigarettes, uncomplicated; F32.9 Major depressive disorder, single episode, unspecified; F41.9 Anxiety disorder, unspecified; G47.00 Insomnia, unspecified; H43.12 Vitreous hemorrhage, left eye; I25.10 Atherosclerotic heart disease of native coronary artery without angina pectoris; I48.91 Unspecified atrial fibrillation; K21.9 Gastro-esophageal reflux disease without esophagitis; K31.84 Gastroparesis; K58.9 Irritable bowel syndrome, unspecified; L89.309 Pressure ulcer of unspecified buttock, unspecified stage; M79.7 Fibromyalgia; R09.02 Hypoxemia; S40.021A Contusion of right upper arm, initial encounter; Z79.02 Long term (current) use of antithrombotics/antiplatelets; Z16.11 Resistance to penicillins; Z79.4 Long term (current) use of insulin; Z79.82 Long term (current) use of aspirin; M19.90 Unspecified osteoarthritis, unspecified site; Z79.899 Other long term (current) drug therapy; Z82.49 Family history of ischemic heart disease and other diseases of the circulatory system; Z87.11 Personal history of peptic ulcer disease; Z83.3 Family history of diabetes mellitus; Z88.1 Allergy status to other antibiotic agents; Z89.421 Acquired absence of other right toe(s); Z89.512 Acquired absence of left leg below knee; Z90.710 Acquired absence of both cervix and uterus; Z91.15 Patient's noncompliance with renal dialysis; Z95.1 Presence of aortocoronary bypass graft; Z87.01 Personal history of pneumonia (recurrent); Z86.14 Personal history of Methicillin resistant Staphylococcus aureus infection; I25.2 Old myocardial infarction; Z88.2 Allergy status to sulfonamides; Z88.8 Allergy status to other drugs, medicaments and biological substances
CPT/HCPCS: 36415; 36600; 71045; 80048; 80053; 80069; 82140; 82805; 82962; 83605; 83735; 83880; 84484; 85007; 85018; 85025; 85610; 85730; 86850; 86900; 86901; 86902; 86922; 87040; 87077; 87205; 87340; 87641; 87804; 93005; 93931; 94640; 94760; 96374; J0692; J0878; J0881; J1170; J1815; J1956; J2248; J2930; J3370; J7040; J7620; P9016; Q0164; Q0167; 99285-25

== ENCOUNTER 2018-06-26 08:59 | Inpatient (IN) | payer MEDICARE ==
[~2018-06-26] VITALS: Ht 172.7 cm; Wt 57.7 kg
[~2018-06-26 08:59] MED LIST changes: +ACET500T68 PO; +GUAI600T79 PO; +IPRA3AMP29 NEB; +MELA3TAB2 PO; +MORP30TA3 PO; +NYST60PO TP; +SODI50SP NS
[2018-06-26 10:15] LABS: BASO # 0.1 x10^3/uL (0.0-0.2); BASO % 0 % (0-3); EOS % 0 % (0-3); HEMATOCRIT 30.6 % (36.0-47.0); HEMOGLOBIN 9.7 g/dL (12.0-15.5); LYMPH # 0.2 x10^3/uL (1.0-4.8); LYMPH % 1 % (24-48); MEAN CORPUSCULAR HEMOGLOBIN 32 pg (25-35); MEAN CORPUSCULAR HGB CONC 32 g/dL (31-37); MEAN CORPUSCULAR VOLUME 100 fL (79-100); MONO # 0.7 x10^3/uL (0.0-1.1); MONO % 3 % (0-9); NEUT # 27.8 x10^3uL (1.8-7.7); NEUT % 96 % (31-73); PLATELET COUNT 402 x10^3/uL (140-400); RED BLOOD COUNT 3.05 x10^6/uL (3.50-5.40); RED CELL DISTRIBUTION WIDTH 19.1 % (11.5-14.5); WHITE BLOOD COUNT 28.8 x10^3/uL (4.0-11.0)
[2018-06-26 10:24] LABS: CALCIUM 9.1 mg/dL (8.5-10.1); CREATININE 4.9 mg/dL (0.6-1.0); GFR 9.3
[2018-06-26 10:33] LABS: ALBUMIN 2.4 g/dL (3.4-5.0); ALBUMIN/GLOBULIN RATIO 0.5 (1.0-1.7); TOTAL BILIRUBIN 0.9 mg/dL (0.2-1.0)
--- NOTE | 2018-06-26 10:37 | RAD ---
CHEST AP ONLY Clinical History: altered mental status Technique: AP view of the chest was obtained at 06/26/2018 9:07 AM. Comparison: June 16, 2018. Findings: The heart and pulmonary vessels appear normal. Mediastinal wires are again seen as well as vascular stents in the right. There is blunting of the left costophrenic angle. The pulmonary vessels appear normal. Impression: Mild left pleural effusion. Stable appearance of the chest. Electronically signed by: Inderjit Ramos III, MD (06/26/2018 10:34 AM) [facility]
--- NOTE | 2018-06-26 10:50 | PHYS DOC ---
Past Medical History Past Medical History: Diabetes-Type II, Hypertension, NM, Renal Failure Additional Past Medical Histor: 11 NM'S, VRE, MRSA, Gastroparesis Past Surgical History: Other Additional Past Surgical Histo: LAMINECTOMY, LEFT BKA, RIGHT TOE AMPUTATION, HEART/SHOULDER/ARM/LEG STENTS Alcohol Use: None Drug Use: None Adult General Chief Complaint Chief Complaint: ALTERED MENTAL STATUS [facility] Patient is a 52 year old female who presents with a feeling of malaise and lethargy. The patient was discharged recently from this facility after a round of sepsis. The patient is a diabetic and vasculopath with a history of numerous MIs, amputation to her left lower extremity and bedsores. The patient currently has pressure ulcers to her buttocks. She is currently having diarrhea and is unable to hold in her stool. She states that this is a new condition for her. Review of Systems Review of Systems Constitutional: See history of present illness Eyes: Denies change in visual acuity, redness, or eye pain [] HENT: Denies nasal congestion or sore throat [] Respiratory: See history of present illness Cardiovascular: No additional information not addressed in HPI [] GI: Denies abdominal pain, nausea, vomiting, bloody stools or diarrhea [] : Denies dysuria or hematuria [] Musculoskeletal: Denies back pain or joint pain [] Integument: Denies rash or skin lesions [] Neurologic: Denies headache, focal weakness or sensory changes [] Endocrine: Denies polyuria or polydipsia [] All other systems were reviewed and found to be within normal limits, except as documented in this note. Current Medications Current Medications Allergies Allergies Allergies Coded Allergies Type Severity Reaction Last Updated Verified Sulfa (Sulfonamide Antibiotics) Allergy Severe Anaphylaxis 03/10/18 Yes meropenem Allergy Intermediate Rash 03/10/18 Yes piperacillin Allergy Intermediate Rash 03/10/18 Yes strawberry Allergy Intermediate 03/10/18 Yes tazobactam Allergy Intermediate 03/10/18 Yes cefazolin Adverse Reaction Intermediate Itching 03/10/18 Yes fentanyl Adverse Reaction Intermediate Nausea and Vomiting 02/05/18 Yes Physical Exam Physical Exam Constitutional: Well developed, well nourished, no acute distress, non-toxic appearance. [] Neck: Normal range of motion, no tenderness, supple, no stridor. [] Cardiovascular:Heart rate regular rhythm, no murmur [] Lungs & Thorax: Bilateral breath sounds equal increased throughout Abdomen: Bowel sounds normal, soft, no tenderness, no masses, no pulsatile masses. [] Skin: The patient has pressure ulcers and skin breakdown to her bilateral buttocks. These appear to be stage II pressure ulcers. Back: No tenderness, no CVA tenderness. [] Extremities: No tenderness, no cyanosis, no clubbing, ROM intact, no edema. [] Neurologic: Alert and oriented X 3, normal motor function, normal sensory function, no focal deficits noted. [] Psychologic: Affect normal, judgement normal, mood normal. [] Current Patient Data Vital Signs Vital Signs Date Time Temp Pulse Resp B/P (MAP) Pulse Ox O2 Delivery O2 Flow Rate FiO2 06/26/18 10:21 93 16 100 06/26/18 09:00 99.2 134/61 (85) Nasal Cannula 2.0 99.2 Lab Values Laboratory Tests Test 06/26/18 09:55 White Blood Count 28.8 x10^3/uL (4.0-11.0) H Red Blood Count 3.05 x10^6/uL (3.50-5.40) L Hemoglobin 9.7 g/dL (12.0-15.5) L Hematocrit 30.6 % (36.0-47.0) L Mean Corpuscular Volume 100 fL (79-100) Mean Corpuscular Hemoglobin 32 pg (25-35) Mean Corpuscular Hemoglobin Concent 32 g/dL (31-37) Red Cell Distribution Width 19.1 % (11.5-14.5) H Platelet Count 402 x10^3/uL (140-400) H Neutrophils (%) (Auto) 96 % (31-73) H Lymphocytes (%) (Auto) 1 % (24-48) L Monocytes (%) (Auto) 3 % (0-9) Eosinophils (%) (Auto) 0 % (0-3) Basophils (%) (Auto) 0 % (0-3) Neutrophils # (Auto) 27.8 x10^3uL (1.8-7.7) H Lymphocytes # (Auto) 0.2 x10^3/uL (1.0-4.8) L Monocytes # (Auto) 0.7 x10^3/uL (0.0-1.1) Eosinophils # (Auto) 0.0 x10^3/uL (0.0-0.7) Basophils # (Auto) 0.1 x10^3/uL (0.0-0.2) Segmented Neutrophils % 75 % (35-66) H Band Neutrophils % 22 % (0-9) H Lymphocytes % 2 % (24-48) L Monocytes % 2 % (0-10) Platelet Estimate Adequate (ADEQUATE) Large Platelets Occ Giant Platelets Occ Polychromasia Present Anisocytosis Slight Macrocytosis Slight Sodium Level 143 mmol/L (136-145) Potassium Level 5.0 mmol/L (3.5-5.1) Chloride Level 103 mmol/L (98-107) Carbon Dioxide Level 25 mmol/L (21-32) Anion Gap 15 (6-14) H Blood Urea Nitrogen 59 mg/dL (7-20) H Creatinine 4.9 mg/dL (0.6-1.0) H Estimated GFR (Cockcroft-Gault) 9.3 BUN/Creatinine Ratio 12 (6-20) Glucose Level 169 mg/dL (70-99) H Lactic Acid Level 2.4 mmol/L (0.4-2.0) H Calcium Level 9.1 mg/dL (8.5-10.1) Total Bilirubin 0.9 mg/dL (0.2-1.0) Aspartate Amino Transferase (AST) 20 U/L (15-37) Alanine Aminotransferase (ALT) 8 U/L (14-59) L Alkaline Phosphatase 141 U/L (46-116) H Total Protein 7.0 g/dL (6.4-8.2) Albumin 2.4 g/dL (3.4-5.0) L Albumin/Globulin Ratio 0.5 (1.0-1.7) L Laboratory Tests 06/26/18 09:55 Laboratory Tests 06/26/18 09:55 EKG EKG [] Radiology/Procedures Radiology/Procedures [] Course & Med Decision Making Course & Med Decision Making Pertinent Labs and Imaging studies reviewed. (See chart for details) The patient has had numerous rounds of diarrhea in the emergency department. Stool samples worsen down to test for C. difficile. The patient was given PO vancomycin in the emergency department. She was admitted to Dr. Morales's service. Nephrology and infectious disease were consulted. Dragon Disclaimer Dragon Disclaimer This electronic medical record was generated, in whole or in part, using a voice recognition dictation system. Departure Departure Impression: Primary Impression: Renal failure Additional Impressions: Sepsis Diarrhea Pressure ulcer Disposition: 09 ADMITTED INPATIENT Admitting Physician: Amanda Morales Condition: GUARDED Referrals: MAGDA ARROYO MD (PCP) Problem Qualifiers LENNIE STEEN APRN Jun 26, 2018 10:50
[2018-06-26 10:54] LABS: % BANDS 22 % (0-9); % LYMPHS 2 % (24-48); % MONOS 2 % (0-10); % SEGS 75 % (35-66); PLT ESTIMATE ADEQUATE (ADEQUATE)
[2018-06-26 10:55] LABS: ANISOCYTOSIS SLIGHT; POLYCHROMASIA PRESENT
[2018-06-26] MEDS ORDERED: fentaNYL PF VIAL 100 MCG/2 ML VIAL IV PRN (11:00)
[2018-06-26] MEDS ORDERED: ONDANSETRON PF 4 MG/2 ML VIAL. IV PRN (11:00)
[2018-06-26] MEDS: VANCOMYCIN 125 MG/2.5 ML ORAL SOLUTION. PO SCH ×3 (11:11→22:17)
[2018-06-26] MEDS: IPRATRPIUM/ALBUTEROL 0.5/2.5MG 3 ML NEBU. NEB SCH ×3 (11:21→19:22)
[2018-06-26 11:50] VITALS: BP 136/63
--- NOTE | 2018-06-26 11:50 | NUR ---
PATIENT BROUGHT TO ROOM 203 PER [facility] BY ED PERSONNEL. PATIENT DROWSY AT THIS TIME AND UNABLE TO STAY AWAKE AND ALERT FOR LONG PERIODS OF TIMES. PATIENT ALERT TO PERSON, PLACE, AND SITUATION. PATIENT COMPLAINING OF 10/10 "SYSTEMIC PAIN." PATIENT ASSESSED AT THIS TIME. WOUND PICTURES TAKEN. PATIENT ORIENTED TO NURSE, ROOM, AND CALL LIGHT. PATIENT INCONTINENT OF STOOL AND CHANGED AT THIS TIME. WILL CONTINUE TO MONITOR PATIENT.
[2018-06-26] MEDS ORDERED: PROCHLORPERAZINE 5 MG TABLET. PO PRN (12:45)
[2018-06-26] MEDS ORDERED: ALBUTEROL SULFATE 2.5 MG/3 ML NEBU. NEB PRN (13:00)
[2018-06-26] MEDS ORDERED: ACETAMINOPHEN 325 MG TABLET. PO PRN (13:00)
[2018-06-26] MEDS ORDERED: VANCOMYCIN 125 MG/2.5 ML ORAL SOLUTION. PO SCH (13:00)
[2018-06-26] MEDS ORDERED: SODIUM CHLORIDE 0.65% NASAL SPRAY 45ML BOTTLE. NS PRN (13:00)
[2018-06-26] MEDS ORDERED: diphenhydrAMINE HCL 25 MG CAPSULE PO PRN (13:00)
[2018-06-26] MEDS: ASPIRIN CHEWABLE 81 MG TABLET. PO SCH (14:00)
[2018-06-26] MEDS: FERROUS SULFATE 325 MG TABLET. PO SCH (14:00)
[2018-06-26] MEDS: carBAMazepine 200 MG TABLET PO SCH ×2 (14:00→22:14)
[2018-06-26] MEDS: MORPHINE ER 30 MG TABLET.ER PO SCH ×2 (14:00→22:13)
[2018-06-26] MEDS: AMIODARONE HCL 200 MG TABLET. PO SCH (14:00)
--- NOTE | 2018-06-26 14:12 | PDOC1 ---
History and Physical Date of Admission Date of Admission DATE: 06/26/18 TIME: 14:09 Source Source: Chart review, Patient History of Present Illness History of Present Illness Ms. Rosenbaum, is a 52 year old female who presents with a feeling of malaise and lethargy. Fever, white count and diarrhea. mult stools this AM, loose, and she is very lethargic and slow to respond, but oriented 4/4 The patient was discharged recently from this facility after a round of sepsis. The patient is a diabetic and nmarked vasculopath with mult ulcers and sores from poor mobilty Past Medical History Cardiovascular: AFIB, CAD, CHF, HTN, NC, Hyperlipidemia, Other Pulmonary: Asthma, Bronchitis, COPD, Pneumonia, Other CENTRAL NERVOUS SYSTEM: Periperal neuropathy GI: Irritable bowel disease, Peptic Ulcer disease, Other Heme/Onc: Anemia NOS Hepatobiliary: No pertinent hx Psych: Anxiety, Depression Musculoskeletal: Osteoarthritis Rheumatologic: Fibromyalgia Infectious disease: Other Renal/: Chronic renal failure Endocrine: Diabetes Past Surgical History Past Surgical History: CABG, Cataract Removal, Hysterectomy, Other Family History Family History: Diabetes, Hypertension Social History Smoke: No ALCOHOL: none Drugs: None Current Problem List Problem List Problems Medical Problems: (1) Diarrhea Status: Acute (2) Pressure ulcer Status: Acute (3) Renal failure Status: Acute (4) Sepsis Status: Acute Current Medications Current Medications Current Medications Vancomycin HCl (Vancomycin Oral Solution) 125 mg [id number] PO Last administered on 06/26/18at 11:11; Start 06/26/18 at 11:00 Ondansetron HCl (Zofran) 4 mg PRN Q8HRS PRN IV NAUSEA/VOMITING; Start 06/26/18 at 11:00; Stop 06/27/18 at 10:59 Fentanyl Citrate (Fentanyl 2ml Vial) 50 mcg PRN Q1HR PRN IV PAIN; Start at 11:00; Stop 06/27/18 at 10:59 Albuterol/ Ipratropium (Duoneb) 3 ml RTQID NEB Last administered on 06/26/18at 11 :21; Start 06/26/18 at 12:00; Stop 06/27/18 at 11:59 Amiodarone HCl (Cordarone) 200 mg DAILY PO ; Start 06/26/18 at 14:00 Aspirin (Children'S Aspirin) 81 mg DAILY PO ; Start 06/26/18 at 14:00 Carbamazepine (TEGretol) 200 mg BID PO ; Start 06/26/18 at 14:00 Carvedilol (Coreg) 12.5 mg BIDWMEALS PO ; Start 06/26/18 at 17:00 Famotidine (Pepcid) 20 mg HS PO ; Start 06/26/18 at 21:00 Ferrous Sulfate (Feosol) 325 mg DAILY PO ; Start 06/26/18 at 14:00 Guaifenesin (Mucinex) 600 mg BID PO ; Start 06/26/18 at 21:00 Insulin Glargine (Lantus) 15 units QHS SQ ; Start 06/26/18 at 21:00 Insulin Human Lispro (HumaLOG) 5 units TIDWMEALS SQ ; Start 06/26/18 at 17:00 Insulin Human Lispro (HumaLOG) 2 UNITS 201-250 3 UN... TIDWMEALS SQ ; Start 06/26 at 17:00 Albuterol Sulfate (Ventolin Neb Soln) 2.5 mg PRN Q6HRS PRN NEB SHORTNESS OF BREATH; Start 06/26/18 at 13:00 Morphine Sulfate (Ms Contin) 30 mg BID PO ; Start 06/26/18 at 14:00 Nystatin (Nystop) 1 susanna BID TP ; Start 06/26/18 at 21:00 Prochlorperazine Maleate (Compazine) 10 mg PRN Q6HRS PRN PO NAUSEA/VOMITING; Start 06/26/18 at 12:45 Sevelamer Carbonate (Renvela) 1,600 mg TIDWMEALS PO ; Start 06/26/18 at 17:00 Ticagrelor (Brilinta) 90 mg BID PO ; Start 06/26/18 at 21:00 Tramadol HCl (Ultram) 50 mg PRN Q4HRS PRN PO HEADACHE; Start 06/26/18 at 12:45 Acetaminophen (Tylenol) 650 mg PRN Q6HRS PRN PO MILD PAIN / TEMP; Start at 13:00 Atorvastatin Calcium (Lipitor) 80 mg QHS PO ; Start 06/26/18 at 21:00 Calcitriol (Rocaltrol) 0.25 mcg DAILY PO ; Start 06/27/18 at 09:00 Diltiazem HCl (Cardizem 24hr Cd) 120 mg DAILY PO ; Start 06/27/18 at 09:00 Diphenhydramine HCl (Benadryl) 50 mg PRN Q8HRS PRN PO ITCHING; Start 06/26/18 at 13:00 Lidocaine (Lidoderm) 1 patch PRN DAILY PRN TD PAIN; Start 06/27/18 at 09:00 Non-Formulary Medication (Melatonin ) 9 mg QHS PO ; Start 06/26/18 at 21:00; Status UNV Niacin (Slo-Niacin) 250 mg BID PO ; Start 06/26/18 at 21:00 Polyethylene Glycol (miraLAX PACKET) 17 gm DAILY PO ; Start 06/27/18 at 09:00 Sodium Chloride (Saline Mist Nasal) 1 susanna PRN BID PRN NS NASAL CONGESTION; Start 06/26/18 at 13:00 Vancomycin HCl (Vancomycin Oral Solution) 125 mg [id number] PO ; Start 06/26/18 at 13:00; Status UNV Active Scripts Active Nystop (Nystatin) 60 Gm Powder 1 Susanna TP BID MDD 1 Morphine Sulfate Er (Morphine Sulfate) 30 Mg Tablet.er 1 Tab PO BID MDD 1 Tramadol Hcl 50 Mg Tablet 50 Mg PO Q4HRS PRN MDD 1 Brilinta (Ticagrelor) 90 Mg Tablet 90 Mg PO BID 30 Days Reported Renvela (Sevelamer Carbonate) 800 Mg Tablet 2 Tab PO TID Melatonin 3 Mg Tablet 9 Mg PO QHS Lantus Solostar (Insulin Glargine,Hum.rec.anlog) 100 Unit/1 Ml Insuln.pen 15 Unit SQ QHS Duoneb 0.5-3(2.5) Mg/3 Ml (Albuterol/Ipratropium) 3 Ml Ampul.neb 3 Ml NEB QID PRN Humalog (Insulin Lispro) 100 Unit/1 Ml Vial 0 SQ TID Humalog (Insulin Lispro) 100 Unit/1 Ml Vial 5 Unit SQ TIDWMEALS Guaifenesin 600 Mg Tablet.er 600 Mg PO BID [place] Saline (Sodium Chloride) 50 Ml Ponce 1 Ponce NS BID PRN Acetaminophen 500 Mg Tablet 650 Mg PO Q6HRS PRN Aspirin 81 Mg Tab.chew 1 Tab PO DAILY Calcitriol 0.25 Mcg Capsule 1 Cap PO DAILY Pepcid (Famotidine) 20 Mg Tablet 20 Mg PO HS Niacin 250 Mg Tablet 250 Mg PO BID Miralax (Polyethylene Glycol 3350) 17 Gm Powd.pack 1 Packet PO DAILY Hydralazine Hcl 10 Mg Tablet 1 Tab PO PRN TID PRN Ferrous Sulfate 325 Mg Tablet 1 Tab PO DAILY Diphenhydramine Hcl 50 Mg Capsule 1 Cap PO PRN Q8HRS PRN Prochlorperazine Maleate 10 Mg Tablet 1 Tab PO PRN Q6HRS PRN Lidocaine 1 Each Adh..patch 1 Each TP PRN DAILY PRN Tegretol (Carbamazepine) 200 Mg Tablet 1 Tab PO BID Carvedilol (Carvedilol) 3.125 Mg Tablet 12.5 Mg PO BID Erythromycin (Erythromycin Base) 250 Mg Capsule.dr 250 Mg PO BID Cardizem Cd (Diltiazem Hcl) 180 Mg Cap.er.24h 120 Mg PO DAILY Amiodarone Hcl 200 Mg Tablet 1 Tab PO DAILY Lipitor (Atorvastatin Calcium) 80 Mg Tablet 80 Mg PO HS Docusate Sodium 100 Mg Capsule 1 Cap PO PRN PRN Allergies Allergies: Coded Allergies: Sulfa (Sulfonamide Antibiotics) (Verified Allergy, Severe, Anaphylaxis, ) meropenem (Verified Allergy, Intermediate, Rash, 03/10/18) Tolerates ancef piperacillin (Verified Allergy, Intermediate, Rash, 03/10/18) Tolerates ancef strawberry (Verified Allergy, Intermediate, 03/10/18) tazobactam (Verified Allergy, Intermediate, 03/10/18) cefazolin (Verified Adverse Reaction, Intermediate, Itching, 03/10/18) Causes Vomiting fentanyl (Verified Adverse Reaction, Intermediate, Nausea and Vomiting, ) Vomiting ROS General: YES: Chills, Fatigue, Malaise PSYCHOLOGICAL ROS: YES: Sleep disturbances; No: Anxiety, Behavioral Disorder, Concentration difficultie, Decreased libido , Depression, Disorientation, Hallucinations, Hostility, Irritablity, Memory difficulties, Mood Swings, Obsessive thoughts, Other Eyes: No Blurry vision, No Decreased vision, No Double vision, No Dry eyes, No Excessive tearing, No Eye Pain, No Itchy Eyes, No Loss of vision, No Photophobia , No Scotomata, No Uses contacts, No Uses glasses, No Other HEENT: No: Heacaches, Visual Changes, Hearing change, Nasal congestion, Nasal discharge, Oral lesions, Sinus pain, Sore Throat, Epistaxis, Sneezing, Snoring, Tinnitus, Vertigo, Vocal changes, Other Respiratory: No: Cough, Hemoptysis, Orthopnea, Pleuritic Pain, Shortness of breath, SOB with excertion, Sputum Changes, Stridor, Tachypnea, Wheezing, Other Cardiovascular: No Chest Pain, No Palpitations, No Orthopnea, No Paroxysmal Noc. Dyspnea, No Edema, No Lt Headedness, No Other Gastrointestinal: Yes Abdominal Pain, Yes Diarrhea Genitourinary: No Dysuria, No Frequency, No Incontinence, No Hematuria, No Retention, No Discharge, No Urgency, No Pain, No Flank Pain, No Other, No , No , No , No , No , No , No Musculoskeletal: Yes Gait Disturbance, Yes Joint Pain, Yes Joint Stiffness Neurological: Yes Gait Disturbance Skin: Yes Dry Skin, Yes Rash, Yes Skin Lesion Changes; No Eczema, No Hair Changes, No Lumps, No Mole Changes, No Mottling, No Nail Changes, No Pruritus, No Other, No Acne Physical Exam General: Oriented X3, Cooperative, mild distress, Other (lethargic, marked pain complaints thought, ) HEENT: EOMI Lungs: Normal air movement Heart: no gallops, no murmurs Abdomen: Other (some tender, no rebound) Rectal Exam: not examined Extremities: No edema Skin: No significant lesion Neuro: Normal tone, Sensation intact Psych/Mental Status: Mood NL Vitals Vitals Vital Signs Date Time Temp Pulse Resp B/P (MAP) Pulse Ox O2 Delivery O2 Flow Rate FiO2 06/26/18 11:50 99.6 94 16 136/63 (87) 100 Nasal Cannula 2.0 99.6 Labs Labs Laboratory Tests Test 06/26/18 09:55 06/26/18 13:00 White Blood Count 28.8 x10^3/uL (4.0-11.0) Red Blood Count 3.05 x10^6/uL (3.50-5.40) Hemoglobin 9.7 g/dL (12.0-15.5) Hematocrit 30.6 % (36.0-47.0) Mean Corpuscular Volume 100 fL (79-100) Mean Corpuscular Hemoglobin 32 pg (25-35) Mean Corpuscular Hemoglobin Concent 32 g/dL (31-37) Red Cell Distribution Width 19.1 % (11.5-14.5) Platelet Count 402 x10^3/uL (140-400) Neutrophils (%) (Auto) 96 % (31-73) Lymphocytes (%) (Auto) 1 % (24-48) Monocytes (%) (Auto) 3 % (0-9) Eosinophils (%) (Auto) 0 % (0-3) Basophils (%) (Auto) 0 % (0-3) Neutrophils # (Auto) 27.8 x10^3uL (1.8-7.7) Lymphocytes # (Auto) 0.2 x10^3/uL (1.0-4.8) Monocytes # (Auto) 0.7 x10^3/uL (0.0-1.1) Eosinophils # (Auto) 0.0 x10^3/uL (0.0-0.7) Basophils # (Auto) 0.1 x10^3/uL (0.0-0.2) Segmented Neutrophils % 75 % (35-66) Band Neutrophils % 22 % (0-9) Lymphocytes % 2 % (24-48) Monocytes % 2 % (0-10) Platelet Estimate Adequate (ADEQUATE) Large Platelets Occ Giant Platelets Occ Polychromasia Present Anisocytosis Slight Macrocytosis Slight Sodium Level 143 mmol/L (136-145) Potassium Level 5.0 mmol/L (3.5-5.1) Chloride Level 103 mmol/L (98-107) Carbon Dioxide Level 25 mmol/L (21-32) Anion Gap 15 (6-14) Blood Urea Nitrogen 59 mg/dL (7-20) Creatinine 4.9 mg/dL (0.6-1.0) Estimated GFR (Cockcroft-Gault) 9.3 BUN/Creatinine Ratio 12 (6-20) Glucose Level 169 mg/dL (70-99) Lactic Acid Level 2.4 mmol/L (0.4-2.0) Calcium Level 9.1 mg/dL (8.5-10.1) Total Bilirubin 0.9 mg/dL (0.2-1.0) Aspartate Amino Transf (AST/SGOT) 20 U/L (15-37) Alanine Aminotransferase (ALT/SGPT) 8 U/L (14-59) Alkaline Phosphatase 141 U/L (46-116) Total Protein 7.0 g/dL (6.4-8.2) Albumin 2.4 g/dL (3.4-5.0) Albumin/Globulin Ratio 0.5 (1.0-1.7) Glucose (Fingerstick) 130 mg/dL (70-99) Laboratory Tests Test 06/26/18 09:55 06/26/18 13:00 White Blood Count 28.8 x10^3/uL (4.0-11.0) Red Blood Count 3.05 x10^6/uL (3.50-5.40) Hemoglobin 9.7 g/dL (12.0-15.5) Hematocrit 30.6 % (36.0-47.0) Mean Corpuscular Volume 100 fL (79-100) Mean Corpuscular Hemoglobin 32 pg (25-35) Mean Corpuscular Hemoglobin Concent 32 g/dL (31-37) Red Cell Distribution Width 19.1 % (11.5-14.5) Platelet Count 402 x10^3/uL (140-400) Neutrophils (%) (Auto) 96 % (31-73) Lymphocytes (%) (Auto) 1 % (24-48) Monocytes (%) (Auto) 3 % (0-9) Eosinophils (%) (Auto) 0 % (0-3) Basophils (%) (Auto) 0 % (0-3) Neutrophils # (Auto) 27.8 x10^3uL (1.8-7.7) Lymphocytes # (Auto) 0.2 x10^3/uL (1.0-4.8) Monocytes # (Auto) 0.7 x10^3/uL (0.0-1.1) Eosinophils # (Auto) 0.0 x10^3/uL (0.0-0.7) Basophils # (Auto) 0.1 x10^3/uL (0.0-0.2) Segmented Neutrophils % 75 % (35-66) Band Neutrophils % 22 % (0-9) Lymphocytes % 2 % (24-48) Monocytes % 2 % (0-10) Platelet Estimate Adequate (ADEQUATE) Large Platelets Occ Giant Platelets Occ Polychromasia Present Anisocytosis Slight Macrocytosis Slight Sodium Level 143 mmol/L (136-145) Potassium Level 5.0 mmol/L (3.5-5.1) Chloride Level 103 mmol/L (98-107) Carbon Dioxide Level 25 mmol/L (21-32) Anion Gap 15 (6-14) Blood Urea Nitrogen 59 mg/dL (7-20) Creatinine 4.9 mg/dL (0.6-1.0) Estimated GFR (Cockcroft-Gault) 9.3 BUN/Creatinine Ratio 12 (6-20) Glucose Level 169 mg/dL (70-99) Lactic Acid Level 2.4 mmol/L (0.4-2.0) Calcium Level 9.1 mg/dL (8.5-10.1) Total Bilirubin 0.9 mg/dL (0.2-1.0) Aspartate Amino Transf (AST/SGOT) 20 U/L (15-37) Alanine Aminotransferase (ALT/SGPT) 8 U/L (14-59) Alkaline Phosphatase 141 U/L (46-116) Total Protein 7.0 g/dL (6.4-8.2) Albumin 2.4 g/dL (3.4-5.0) Albumin/Globulin Ratio 0.5 (1.0-1.7) Glucose (Fingerstick) 130 mg/dL (70-99) VTE Prophylaxis Ordered VTE Prophylaxis Devices: Yes VTE Pharmacological Prophylaxi: Yes Assessment/Plan Assessment/Plan diarrhea sepsis consult ID weakness and debility, has been living at [facility] mult skin wounds poor nutrition ESRD, needs HD, mwf ROMI GOSS MD Jun 26, 2018 14:12
[2018-06-26 14:54] VITALS: BP 122/59
[2018-06-26] MEDS: traMADol 50 MG TABLET PO PRN (16:27)
[2018-06-26] MEDS: CARVEDILOL 3.125 MG TABLET. PO SCH (16:27)
[2018-06-26] MEDS: SEVELAMER CARBONATE 800 MG TABLET. PO SCH (16:30)
[2018-06-26] MEDS: INSULIN LISPRO 300 UNITS/3 ML INSULN.PEN. SQ SCH ×2 (17:00)
[2018-06-26] MEDS ORDERED: DIALYSIS PATIENT. MC PRN ×2 (18:00)
[2018-06-26] MEDS ORDERED: diphenhydrAMINE 50 MG/ML VIAL IV PRN (18:00)
[2018-06-26] MEDS ORDERED: IV NORMAL SALINE 1000ML BAG 1,000 ML IV PRN ×2 (18:00)
[2018-06-26] MEDS ORDERED: OXYC-411 PO (18:13)
[2018-06-26] MEDS ORDERED: ATORVASTATIN CALCIUM 40 MG TABLET. PO SCH (21:00)
[2018-06-26] MEDS ORDERED: FAMOTIDINE 20 MG TABLET. PO SCH (21:00)
[2018-06-26] MEDS ORDERED: INSULIN GLARGINE 300 UNITS/3 ML INSULN.PEN. SQ SCH (21:00)
[2018-06-26] MEDS ORDERED: MELATONIN 9 MG PO SCH (21:00)
[2018-06-26] MEDS: NIACIN ER 250 MG TABLET.ER PO SCH (22:14)
[2018-06-26] MEDS: TICAGRELOR 90 MG TABLET. PO SCH (22:14)
[2018-06-26] MEDS: oxyCODONE/APAP 10/325 1 TAB TABLET PO PRN (22:14)
[2018-06-26] MEDS: NYSTATIN TOPICAL POWDER 15GM BOTTLE. TP SCH (22:15)
[2018-06-26 23:17] VITALS: BP 142/63
[2018-06-27 03:00] VITALS: BP 124/61
--- NOTE | 2018-06-27 03:28 | CONS ---
DATE OF CONSULTATION: REASON FOR CONSULTATION: Renal failure. REQUESTING PHYSICIAN: Hospitalist. HISTORY OF PRESENT ILLNESS: This is a 52-year-old female with multiple hospitalizations at [facility]. She has diabetes mellitus, hypertension, severe vascular disease, and end-stage renal disease, hemodialysis dependent on a Thursday, , Thursday schedule. She is currently admitted in the setting of altered mentation. She was recently hospitalized with sepsis. She has ongoing lower extremity and buttock wounds. PAST MEDICAL HISTORY: Diabetes mellitus, hypertension, end-stage renal disease hemodialysis dependent, anemia of chronic kidney disease, secondary hyperparathyroidism, renal disease, diabetic retinopathy, diabetic neuropathy, severe peripheral vascular disease, left [id number] amputation, right toe amputation, vascular stenting, laminectomy, sepsis. ALLERGIES: SULFA, CEFAZOLIN, FENTANYL, MEROPENEM, PIPERACILLIN, STRAWBERRY, AND TAZOBACTAM. MEDICATIONS: Reviewed per medication list. FAMILY HISTORY: Noncontributory. SOCIAL HISTORY: The patient resides with assistance. REVIEW OF SYSTEMS: The patient is confused, so unobtainable. PHYSICAL EXAMINATION: GENERAL: The patient appears chronically ill. She is lethargic, but does awaken and quickly goes back to sleep, does not answer questions. HEENT: Sallow complexion. Mouth is clear. NECK: No increased JVD. No thyromegaly, masses, or adenopathy. LUNGS: Clear. CARDIAC: Without S3 or rub. ABDOMEN: Soft, nontender. EXTREMITIES: Amputation as described above. NEUROPSYCHIATRIC: Confused. LABORATORY DATA: White count 28.8, hemoglobin 9.7, hematocrit 30.6, potassium 5, CO2 of 25, creatinine 4.9, GFR 9.3. IMPRESSION: 1. End-stage renal disease secondary to diabetic nephropathy, hemodialysis dependent, Thursday, and Thursday. 2. Altered mentation - likely recurrent sepsis. 3. Severe vascular disease with wounds. RECOMMENDATIONS: 1. Ongoing dialysis with dialysis today. 2. Consultation with Infectious Disease would be recommended for ongoing antibiotic administration and search for source. We will follow. BRITNEY ORONA MD DR: ARELI/guillermo JOB#: [id number] / [id number]
[2018-06-27 05:09] LABS: BASO % 0 % (0-3); EOS % 0 % (0-3); HEMATOCRIT 26.1 % (36.0-47.0); HEMOGLOBIN 8.1 g/dL (12.0-15.5); LYMPH # 1.1 x10^3/uL (1.0-4.8); LYMPH % 8 % (24-48); MEAN CORPUSCULAR HEMOGLOBIN 31 pg (25-35); MEAN CORPUSCULAR HGB CONC 31 g/dL (31-37); MEAN CORPUSCULAR VOLUME 100 fL (79-100); MONO # 1.1 x10^3/uL (0.0-1.1); MONO % 8 % (0-9); NEUT # 11.6 x10^3uL (1.8-7.7); NEUT % 84 % (31-73); PLATELET COUNT 327 x10^3/uL (140-400); RED BLOOD COUNT 2.61 x10^6/uL (3.50-5.40); RED CELL DISTRIBUTION WIDTH 19.2 % (11.5-14.5); WHITE BLOOD COUNT 13.9 x10^3/uL (4.0-11.0)
[2018-06-27 05:39] LABS: CALCIUM 8.9 mg/dL (8.5-10.1); CREATININE 3.2 mg/dL (0.6-1.0); GFR 15.2; POTASSIUM 3.5 mmol/L (3.5-5.1)
[2018-06-27 07:15] VITALS: BP 133/62
[2018-06-27] MEDS: INSULIN LISPRO 300 UNITS/3 ML INSULN.PEN. SQ SCH ×6 (08:00→17:00)
[2018-06-27] MEDS: IPRATRPIUM/ALBUTEROL 0.5/2.5MG 3 ML NEBU. NEB SCH (08:00)
[2018-06-27] MEDS: SEVELAMER CARBONATE 800 MG TABLET. PO SCH ×3 (08:15→17:00)
[2018-06-27] MEDS: NIACIN ER 250 MG TABLET.ER PO SCH (08:15)
[2018-06-27] MEDS: carBAMazepine 200 MG TABLET PO SCH (08:16)
[2018-06-27] MEDS: MORPHINE ER 30 MG TABLET.ER PO SCH (08:16)
[2018-06-27] MEDS: TICAGRELOR 90 MG TABLET. PO SCH (08:16)
[2018-06-27] MEDS: ASPIRIN CHEWABLE 81 MG TABLET. PO SCH (08:16)
[2018-06-27] MEDS: AMIODARONE HCL 200 MG TABLET. PO SCH (08:17)
[2018-06-27] MEDS: FERROUS SULFATE 325 MG TABLET. PO SCH (08:17)
[2018-06-27] MEDS: oxyCODONE/APAP 10/325 1 TAB TABLET PO PRN ×2 (08:18→14:03)
[2018-06-27] MEDS: NYSTATIN TOPICAL POWDER 15GM BOTTLE. TP SCH (08:18)
[2018-06-27] MEDS: CARVEDILOL 3.125 MG TABLET. PO SCH ×2 (08:18→17:22)
[2018-06-27] MEDS ORDERED: CALCITRIOL 0.25 MCG CAPSULE. PO SCH (09:00)
[2018-06-27] MEDS ORDERED: LIDOCAINE (700MG/PATCH) PATCH. TD PRN (09:00)
[2018-06-27] MEDS ORDERED: LACTOBACILLUS RHAMNOSUS GG 1 CAPSULE. PO SCH (09:00)
[2018-06-27] MEDS ORDERED: POLYETHYLENE GLYCOL 3350 17 GM PACKET. PO SCH (09:00)
--- NOTE | 2018-06-27 09:14 | PDOC ---
Infectious Disease Note Subjective Subjective Known to our service Discharged on 06/22 on 2 weeks Cefazolin post HD for TX of group B strep bacteremia. Patient says she doesn't feel sick. She had a brief period of diarrhea that has since stopped, says she had been constipated. Low-grade fever on admission. Denies chills/sweats/aches/cough/SOA/N/V/cramps ROS ROS per HPI otherwise neg Vital Sign Vital Signs Vital Signs Date Time Temp Pulse Resp B/P (MAP) Pulse Ox O2 Delivery O2 Flow Rate FiO2 06/27/18 08:18 99 Room Air 06/27/18 08:18 83 133/62 06/27/18 07:15 98.0 12 98.0 06/26/18 16:27 2.0 Physical Exam PHYSICAL EXAM GENERAL: Propped up in bed, alert, NAD HEENT: Normal conjunctivae. Oral cavity, pharynx dry NECK: Supple, no JVD. LUNGS: Decreased in the bases. HEART: S1, S2. 1/6 murmur. ABDOMEN: Soft, nontender, no guarding or rebound. PD catheter is in place. EXTREMITIES: Without clubbing, cyanosis. Right foot chronic venous changes, dry areas RUE-AVF SKIN: Without signs of generalized rash. Multiple wounds Labs Lab Laboratory Tests Test 06/26/18 09:20 06/26/18 09:55 06/26/18 13:00 06/26/18 13:55 Clostridium difficile Toxin B Gene Negative (Negative) White Blood Count 28.8 x10^3/uL (4.0-11.0) Red Blood Count 3.05 x10^6/uL (3.50-5.40) Hemoglobin 9.7 g/dL (12.0-15.5) Hematocrit 30.6 % (36.0-47.0) Mean Corpuscular Volume 100 fL (79-100) Mean Corpuscular Hemoglobin 32 pg (25-35) Mean Corpuscular Hemoglobin Concent 32 g/dL (31-37) Red Cell Distribution Width 19.1 % (11.5-14.5) Platelet Count 402 x10^3/uL (140-400) Neutrophils (%) (Auto) 96 % (31-73) Lymphocytes (%) (Auto) 1 % (24-48) Monocytes (%) (Auto) 3 % (0-9) Eosinophils (%) (Auto) 0 % (0-3) Basophils (%) (Auto) 0 % (0-3) Neutrophils # (Auto) 27.8 x10^3uL (1.8-7.7) Lymphocytes # (Auto) 0.2 x10^3/uL (1.0-4.8) Monocytes # (Auto) 0.7 x10^3/uL (0.0-1.1) Eosinophils # (Auto) 0.0 x10^3/uL (0.0-0.7) Basophils # (Auto) 0.1 x10^3/uL (0.0-0.2) Segmented Neutrophils % 75 % (35-66) Band Neutrophils % 22 % (0-9) Lymphocytes % 2 % (24-48) Monocytes % 2 % (0-10) Platelet Estimate Adequate (ADEQUATE) Large Platelets Occ Giant Platelets Occ Polychromasia Present Anisocytosis Slight Macrocytosis Slight Sodium Level 143 mmol/L (136-145) Potassium Level 5.0 mmol/L (3.5-5.1) Chloride Level 103 mmol/L (98-107) Carbon Dioxide Level 25 mmol/L (21-32) Anion Gap 15 (6-14) Blood Urea Nitrogen 59 mg/dL (7-20) Creatinine 4.9 mg/dL (0.6-1.0) Estimated GFR (Cockcroft-Gault) 9.3 BUN/Creatinine Ratio 12 (6-20) Glucose Level 169 mg/dL (70-99) Lactic Acid Level 2.4 mmol/L (0.4-2.0) 0.9 mmol/L (0.4-2.0) Calcium Level 9.1 mg/dL (8.5-10.1) Total Bilirubin 0.9 mg/dL (0.2-1.0) Aspartate Amino Transf (AST/SGOT) 20 U/L (15-37) Alanine Aminotransferase (ALT/SGPT) 8 U/L (14-59) Alkaline Phosphatase 141 U/L (46-116) Total Protein 7.0 g/dL (6.4-8.2) Albumin 2.4 g/dL (3.4-5.0) Albumin/Globulin Ratio 0.5 (1.0-1.7) Glucose (Fingerstick) 130 mg/dL (70-99) Test 06/26/18 16:54 06/26/18 22:10 06/27/18 04:15 06/27/18 07:44 Glucose (Fingerstick) 116 mg/dL (70-99) 95 mg/dL (70-99) 91 mg/dL (70-99) White Blood Count 13.9 x10^3/uL (4.0-11.0) Red Blood Count 2.61 x10^6/uL (3.50-5.40) Hemoglobin 8.1 g/dL (12.0-15.5) Hematocrit 26.1 % (36.0-47.0) Mean Corpuscular Volume 100 fL (79-100) Mean Corpuscular Hemoglobin 31 pg (25-35) Mean Corpuscular Hemoglobin Concent 31 g/dL (31-37) Red Cell Distribution Width 19.2 % (11.5-14.5) Platelet Count 327 x10^3/uL (140-400) Neutrophils (%) (Auto) 84 % (31-73) Lymphocytes (%) (Auto) 8 % (24-48) Monocytes (%) (Auto) 8 % (0-9) Eosinophils (%) (Auto) 0 % (0-3) Basophils (%) (Auto) 0 % (0-3) Neutrophils # (Auto) 11.6 x10^3uL (1.8-7.7) Lymphocytes # (Auto) 1.1 x10^3/uL (1.0-4.8) Monocytes # (Auto) 1.1 x10^3/uL (0.0-1.1) Eosinophils # (Auto) 0.0 x10^3/uL (0.0-0.7) Basophils # (Auto) 0.0 x10^3/uL (0.0-0.2) Sodium Level 141 mmol/L (136-145) Potassium Level 3.5 mmol/L (3.5-5.1) Chloride Level 101 mmol/L (98-107) Carbon Dioxide Level 28 mmol/L (21-32) Anion Gap 12 (6-14) Blood Urea Nitrogen 34 mg/dL (7-20) Creatinine 3.2 mg/dL (0.6-1.0) Estimated GFR (Cockcroft-Gault) 15.2 Glucose Level 104 mg/dL (70-99) Calcium Level 8.9 mg/dL (8.5-10.1) Objective Assessment Diarrhea - c. diff PCR neg on 06/26. Fever Leukocytosis, better h/o bacteremia, group B strep from 06/16. Discharged 06/22 on 2 weeks of cefazolin post dialysis Multiple allergies/intolerances Left pleural effusion Multiple wounds CKD on PD/HD, couldn't tolerate more than 2 hrs HD yesterday h/o VRE, MRSA, C. diff Plan Plan of Care Patient says she feels fine and [facility]. She also says diarrhea has stopped. d/c po vancomycin Probiotics Contact isolation Thank you Attending Co-Sign The patient was seen and interviewed as well as examined at the bedside. The chart was reviewed. The case was discussed. Agree with the plan of care. KYLEIGH QUEEN APRN Jun 27, 2018 09:14 DANDY LÓPEZ MD Jun 27, 2018 11:30
--- NOTE | 2018-06-27 10:09 | NUR ---
PATIENT STATES SHE IS REFUSING DIALYSIS TODAY.
--- NOTE | 2018-06-27 10:11 | PDOC ---
PROGRESS NOTES Chief Complaint Chief Complaint CC: Malaise and lethargy Diarrhea - Cdiff neg Sepsis Weakness ESRD on HD DM with multiple skin wounds HTN Anemia of CKD History of Present Illness History of Present Illness Pt is a 52 y/o female who presented to the hospital with malaise, lethargy, diarrhea. Today she was seen and examined in her room. She is awake, alert and in NAD. She states she feels fine and would like to be D/C back to rehab. She has not had any more episodes of diarrhea. I discussed the pt with her RN. RN states she will refuse HD. Vitals Vitals Vital Signs Date Time Temp Pulse Resp B/P (MAP) Pulse Ox O2 Delivery O2 Flow Rate FiO2 06/27/18 09:20 99 Room Air 06/27/18 08:18 83 133/62 06/27/18 07:15 98.0 12 98.0 06/26/18 16:27 2.0 Physical Exam Physical Exam GENERAL: Propped up in bed, alert, NAD HEENT: Normal conjunctivae. Oral cavity, pharynx dry NECK: Supple, no JVD. LUNGS: Decreased in the bases. HEART: S1, S2. 1/6 murmur. ABDOMEN: Soft, nontender, no guarding or rebound. PD catheter is in place. EXTREMITIES: Without clubbing, cyanosis. Right foot chronic venous changes, dry areas RUE-AVF SKIN: Without signs of generalized rash. Multiple wounds General: Oriented X3, Cooperative, mild distress, Other (lethargic, marked pain complaints thought, ) Heart: Regular rate, No murmurs Lungs: Clear, Other (no wheezing or crackles) Abdomen: Normal bowel sounds, Soft, No tenderness, Other (some tender, no rebound) Extremities: No clubbing, No cyanosis, No edema, Other (lt leg amputation. multiple wounds on rt leg) Skin: No significant lesion Labs LABS Laboratory Tests Test 06/26/18 13:00 06/26/18 13:55 06/26/18 16:54 06/26/18 22:10 Glucose (Fingerstick) 130 mg/dL (70-99) 116 mg/dL (70-99) 95 mg/dL (70-99) Lactic Acid Level 0.9 mmol/L (0.4-2.0) Test 06/27/18 04:15 06/27/18 07:44 White Blood Count 13.9 x10^3/uL (4.0-11.0) Red Blood Count 2.61 x10^6/uL (3.50-5.40) Hemoglobin 8.1 g/dL (12.0-15.5) Hematocrit 26.1 % (36.0-47.0) Mean Corpuscular Volume 100 fL (79-100) Mean Corpuscular Hemoglobin 31 pg (25-35) Mean Corpuscular Hemoglobin Concent 31 g/dL (31-37) Red Cell Distribution Width 19.2 % (11.5-14.5) Platelet Count 327 x10^3/uL (140-400) Neutrophils (%) (Auto) 84 % (31-73) Lymphocytes (%) (Auto) 8 % (24-48) Monocytes (%) (Auto) 8 % (0-9) Eosinophils (%) (Auto) 0 % (0-3) Basophils (%) (Auto) 0 % (0-3) Neutrophils # (Auto) 11.6 x10^3uL (1.8-7.7) Lymphocytes # (Auto) 1.1 x10^3/uL (1.0-4.8) Monocytes # (Auto) 1.1 x10^3/uL (0.0-1.1) Eosinophils # (Auto) 0.0 x10^3/uL (0.0-0.7) Basophils # (Auto) 0.0 x10^3/uL (0.0-0.2) Sodium Level 141 mmol/L (136-145) Potassium Level 3.5 mmol/L (3.5-5.1) Chloride Level 101 mmol/L (98-107) Carbon Dioxide Level 28 mmol/L (21-32) Anion Gap 12 (6-14) Blood Urea Nitrogen 34 mg/dL (7-20) Creatinine 3.2 mg/dL (0.6-1.0) Estimated GFR (Cockcroft-Gault) 15.2 Glucose Level 104 mg/dL (70-99) Calcium Level 8.9 mg/dL (8.5-10.1) Glucose (Fingerstick) 91 mg/dL (70-99) Review of Systems Review of Systems Gen: denies fever, chills Heart: denies CP, palp Lung: denies cough, SOA Abd: denies N/V/D Assessment and Plan Assessmemt and Plan Assessment: CC: Malaise and lethargy Diarrhea - Cdiff neg Sepsis Weakness ESRD on HD DM with multiple skin wounds HTN Anemia of CKD Plan: HD TTHS Abx per ID Wound care Daily labs PT/OT Home meds Appreciate subspecialist input Probable D/C today if okay by subspecialist Comment Review of Relevant I have reviewed the following items bert (where applicable) has been applied. Labs Laboratory Tests Test 06/26/18 09:20 06/26/18 09:55 06/26/18 13:00 06/26/18 13:55 Clostridium difficile Toxin B Gene Negative (Negative) White Blood Count 28.8 x10^3/uL (4.0-11.0) Red Blood Count 3.05 x10^6/uL (3.50-5.40) Hemoglobin 9.7 g/dL (12.0-15.5) Hematocrit 30.6 % (36.0-47.0) Mean Corpuscular Volume 100 fL (79-100) Mean Corpuscular Hemoglobin 32 pg (25-35) Mean Corpuscular Hemoglobin Concent 32 g/dL (31-37) Red Cell Distribution Width 19.1 % (11.5-14.5) Platelet Count 402 x10^3/uL (140-400) Neutrophils (%) (Auto) 96 % (31-73) Lymphocytes (%) (Auto) 1 % (24-48) Monocytes (%) (Auto) 3 % (0-9) Eosinophils (%) (Auto) 0 % (0-3) Basophils (%) (Auto) 0 % (0-3) Neutrophils # (Auto) 27.8 x10^3uL (1.8-7.7) Lymphocytes # (Auto) 0.2 x10^3/uL (1.0-4.8) Monocytes # (Auto) 0.7 x10^3/uL (0.0-1.1) Eosinophils # (Auto) 0.0 x10^3/uL (0.0-0.7) Basophils # (Auto) 0.1 x10^3/uL (0.0-0.2) Segmented Neutrophils % 75 % (35-66) Band Neutrophils % 22 % (0-9) Lymphocytes % 2 % (24-48) Monocytes % 2 % (0-10) Platelet Estimate Adequate (ADEQUATE) Large Platelets Occ Giant Platelets Occ Polychromasia Present Anisocytosis Slight Macrocytosis Slight Sodium Level 143 mmol/L (136-145) Potassium Level 5.0 mmol/L (3.5-5.1) Chloride Level 103 mmol/L (98-107) Carbon Dioxide Level 25 mmol/L (21-32) Anion Gap 15 (6-14) Blood Urea Nitrogen 59 mg/dL (7-20) Creatinine 4.9 mg/dL (0.6-1.0) Estimated GFR (Cockcroft-Gault) 9.3 BUN/Creatinine Ratio 12 (6-20) Glucose Level 169 mg/dL (70-99) Lactic Acid Level 2.4 mmol/L (0.4-2.0) 0.9 mmol/L (0.4-2.0) Calcium Level 9.1 mg/dL (8.5-10.1) Total Bilirubin 0.9 mg/dL (0.2-1.0) Aspartate Amino Transf (AST/SGOT) 20 U/L (15-37) Alanine Aminotransferase (ALT/SGPT) 8 U/L (14-59) Alkaline Phosphatase 141 U/L (46-116) Total Protein 7.0 g/dL (6.4-8.2) Albumin 2.4 g/dL (3.4-5.0) Albumin/Globulin Ratio 0.5 (1.0-1.7) Glucose (Fingerstick) 130 mg/dL (70-99) Test 06/26/18 16:54 06/26/18 22:10 06/27/18 04:15 06/27/18 07:44 Glucose (Fingerstick) 116 mg/dL (70-99) 95 mg/dL (70-99) 91 mg/dL (70-99) White Blood Count 13.9 x10^3/uL (4.0-11.0) Red Blood Count 2.61 x10^6/uL (3.50-5.40) Hemoglobin 8.1 g/dL (12.0-15.5) Hematocrit 26.1 % (36.0-47.0) Mean Corpuscular Volume 100 fL (79-100) Mean Corpuscular Hemoglobin 31 pg (25-35) Mean Corpuscular Hemoglobin Concent 31 g/dL (31-37) Red Cell Distribution Width 19.2 % (11.5-14.5) Platelet Count 327 x10^3/uL (140-400) Neutrophils (%) (Auto) 84 % (31-73) Lymphocytes (%) (Auto) 8 % (24-48) Monocytes (%) (Auto) 8 % (0-9) Eosinophils (%) (Auto) 0 % (0-3) Basophils (%) (Auto) 0 % (0-3) Neutrophils # (Auto) 11.6 x10^3uL (1.8-7.7) Lymphocytes # (Auto) 1.1 x10^3/uL (1.0-4.8) Monocytes # (Auto) 1.1 x10^3/uL (0.0-1.1) Eosinophils # (Auto) 0.0 x10^3/uL (0.0-0.7) Basophils # (Auto) 0.0 x10^3/uL (0.0-0.2) Sodium Level 141 mmol/L (136-145) Potassium Level 3.5 mmol/L (3.5-5.1) Chloride Level 101 mmol/L (98-107) Carbon Dioxide Level 28 mmol/L (21-32) Anion Gap 12 (6-14) Blood Urea Nitrogen 34 mg/dL (7-20) Creatinine 3.2 mg/dL (0.6-1.0) Estimated GFR (Cockcroft-Gault) 15.2 Glucose Level 104 mg/dL (70-99) Calcium Level 8.9 mg/dL (8.5-10.1) Laboratory Tests Test 06/26/18 13:00 06/26/18 13:55 06/26/18 16:54 06/26/18 22:10 Glucose (Fingerstick) 130 mg/dL (70-99) 116 mg/dL (70-99) 95 mg/dL (70-99) Lactic Acid Level 0.9 mmol/L (0.4-2.0) Test 06/27/18 04:15 06/27/18 07:44 White Blood Count 13.9 x10^3/uL (4.0-11.0) Red Blood Count 2.61 x10^6/uL (3.50-5.40) Hemoglobin 8.1 g/dL (12.0-15.5) Hematocrit 26.1 % (36.0-47.0) Mean Corpuscular Volume 100 fL (79-100) Mean Corpuscular Hemoglobin 31 pg (25-35) Mean Corpuscular Hemoglobin Concent 31 g/dL (31-37) Red Cell Distribution Width 19.2 % (11.5-14.5) Platelet Count 327 x10^3/uL (140-400) Neutrophils (%) (Auto) 84 % (31-73) Lymphocytes (%) (Auto) 8 % (24-48) Monocytes (%) (Auto) 8 % (0-9) Eosinophils (%) (Auto) 0 % (0-3) Basophils (%) (Auto) 0 % (0-3) Neutrophils # (Auto) 11.6 x10^3uL (1.8-7.7) Lymphocytes # (Auto) 1.1 x10^3/uL (1.0-4.8) Monocytes # (Auto) 1.1 x10^3/uL (0.0-1.1) Eosinophils # (Auto) 0.0 x10^3/uL (0.0-0.7) Basophils # (Auto) 0.0 x10^3/uL (0.0-0.2) Sodium Level 141 mmol/L (136-145) Potassium Level 3.5 mmol/L (3.5-5.1) Chloride Level 101 mmol/L (98-107) Carbon Dioxide Level 28 mmol/L (21-32) Anion Gap 12 (6-14) Blood Urea Nitrogen 34 mg/dL (7-20) Creatinine 3.2 mg/dL (0.6-1.0) Estimated GFR (Cockcroft-Gault) 15.2 Glucose Level 104 mg/dL (70-99) Calcium Level 8.9 mg/dL (8.5-10.1) Glucose (Fingerstick) 91 mg/dL (70-99) Microbiology 06/26/18 Blood Culture - Preliminary, Resulted NO GROWTH AFTER 1 DAY Medications Current Medications Vancomycin HCl (Vancomycin Oral Solution) 125 mg [id number] PO Last administered on 06/26/18at 22:17; Start 06/26/18 at 11:00; Stop 06/27/18 at 09:13; Status DC Ondansetron HCl (Zofran) 4 mg PRN Q8HRS PRN IV NAUSEA/VOMITING; Start 06/26/18 at 11:00; Stop 06/27/18 at 10:59 Fentanyl Citrate (Fentanyl 2ml Vial) 50 mcg PRN Q1HR PRN IV PAIN Last administered on 06/26/18 18:02; Start 06/26/18 at 11:00; Stop 06/27/18 at 10:59 Albuterol/ Ipratropium (Duoneb) 3 ml RTQID NEB Last administered on 06/26/18 19 :22; Start 06/26/18 at 12:00; Stop 06/27/18 at 11:59 Amiodarone HCl (Cordarone) 200 mg DAILY PO Last administered on 06/27/18 08:17 ; Start 06/26/18 at 14:00 Aspirin (Children'S Aspirin) 81 mg DAILY PO Last administered on 06/27/18 08:16 ; Start 06/26/18 at 14:00 Carbamazepine (TEGretol) 200 mg BID PO Last administered on 06/27/18 08:16; Start 06/26/18 at 14:00 Carvedilol (Coreg) 12.5 mg BIDWMEALS PO Last administered on 06/27/18 08:18; Start 06/26/18 at 17:00 Famotidine (Pepcid) 20 mg HS PO Last administered on 06/26/18at 22:14; Start 06/26 at 21:00 Ferrous Sulfate (Feosol) 325 mg DAILY PO Last administered on 06/27/18 08:17; Start 06/26/18 at 14:00 Guaifenesin (Mucinex) 600 mg BID PO Last administered on 06/27/18 08:17; Start 06/26/18 at 21:00 Insulin Glargine (Lantus) 15 units QHS SQ ; Start 06/26/18 at 21:00 Insulin Human Lispro (HumaLOG) 5 units TIDWMEALS SQ ; Start 06/26/18 at 17:00 Insulin Human Lispro (HumaLOG) 2 UNITS 201-250 3 UN... TIDWMEALS SQ ; Start 06/26 at 17:00 Albuterol Sulfate (Ventolin Neb Soln) 2.5 mg PRN Q6HRS PRN NEB SHORTNESS OF BREATH; Start 06/26/18 at 13:00 Morphine Sulfate (Ms Contin) 30 mg BID PO Last administered on 06/27/18at 08:16; Start 06/26/18 at 14:00 Nystatin (Nystop) 1 susanna BID TP Last administered on 06/27/18 08:18; Start at 21:00 Prochlorperazine Maleate (Compazine) 10 mg PRN Q6HRS PRN PO NAUSEA/VOMITING; Start 06/26/18 at 12:45 Sevelamer Carbonate (Renvela) 1,600 mg TIDWMEALS PO Last administered on 08:15; Start 06/26/18 at 17:00 Ticagrelor (Brilinta) 90 mg BID PO Last administered on 06/27/18at 08:16; Start 06/26/18 at 21:00 Tramadol HCl (Ultram) 50 mg PRN Q4HRS PRN PO HEADACHE Last administered on 16:27; Start 06/26/18 at 12:45 Acetaminophen (Tylenol) 650 mg PRN Q6HRS PRN PO MILD PAIN / TEMP; Start at 13:00 Atorvastatin Calcium (Lipitor) 80 mg QHS PO Last administered on 06/26/18at 22:14 ; Start 06/26/18 at 21:00 Calcitriol (Rocaltrol) 0.25 mcg DAILY PO Last administered on 06/27/18at 08:17; Start 06/27/18 at 09:00 Diltiazem HCl (Cardizem 24hr Cd) 120 mg DAILY PO Last administered on 06/27/18 08:17; Start 06/27/18 at 09:00 Diphenhydramine HCl (Benadryl) 50 mg PRN Q8HRS PRN PO ITCHING; Start 06/26/18 at 13:00 Lidocaine (Lidoderm) 1 patch PRN DAILY PRN TD PAIN; Start 06/27/18 at 09:00 Non-Formulary Medication (Melatonin ) 9 mg QHS PO ; Start 06/26/18 at 21:00; Status UNV Niacin (Slo-Niacin) 250 mg BID PO Last administered on 06/27/18at 08:15; Start at 21:00 Polyethylene Glycol (miraLAX PACKET) 17 gm DAILY PO ; Start 06/27/18 at 09:00 Sodium Chloride (Saline Mist Nasal) 1 susanna PRN BID PRN NS NASAL CONGESTION; Start 06/26/18 at 13:00 Vancomycin HCl (Vancomycin Oral Solution) 125 mg [id number] PO ; Start 06/26/18 at 13:00; Status UNV Sodium Chloride 1,000 ml @ 1,000 mls/hr Q1H PRN IV hypotension; Start 06/26/18 at 18:00; Stop 06/26/18 at 23:59; Status DC Diphenhydramine HCl (Benadryl) 25 mg 1X PRN PRN IV ITCHING; Start 06/26/18 at 18 :00; Stop 06/26/18 at 23:59; Status DC Sodium Chloride 1,000 ml @ 400 mls/hr Q2H30M PRN IV PATENCY; Start 06/26/18 at 18:00; Stop 06/26/18 at 23:59; Status DC Info (PHARMACY MONITORING -- do not chart) 1 each PRN DAILY PRN MC SEE COMMENTS ; Start 06/26/18 at 18:00; Status UNV Info (PHARMACY MONITORING -- do not chart) 1 each PRN DAILY PRN MC SEE COMMENTS ; Start 06/26/18 at 18:00 Oxycodone/ Acetaminophen (Percocet 10/325) 1 tab PRN Q4HRS PRN PO BREAKTHRU PAIN Last administered on 06/27/18at 08:18; Start 06/26/18 at 18:30 Lactobacillus Rhamnosus (Culturelle) 1 cap BID PO Last administered on at 08:17; Start 06/27/18 at 09:00 Active Scripts Active Nystop (Nystatin) 60 Gm Powder 1 Susanna TP BID MDD 1 Morphine Sulfate Er (Morphine Sulfate) 30 Mg Tablet.er 1 Tab PO BID MDD 1 Tramadol Hcl 50 Mg Tablet 50 Mg PO Q4HRS PRN MDD 1 Brilinta (Ticagrelor) 90 Mg Tablet 90 Mg PO BID 30 Days Reported Oxycodone-Acetaminophen 10-325 (Oxycodone Hcl/Acetaminophen) 1 Each Tablet 1 Tab PO Q4HRS Renvela (Sevelamer Carbonate) 800 Mg Tablet 2 Tab PO TID Melatonin 3 Mg Tablet 9 Mg PO QHS Lantus Solostar (Insulin Glargine,Hum.rec.anlog) 100 Unit/1 Ml Insuln.pen 15 Unit SQ QHS Duoneb 0.5-3(2.5) Mg/3 Ml (Albuterol/Ipratropium) 3 Ml Ampul.neb 3 Ml NEB QID PRN Humalog (Insulin Lispro) 100 Unit/1 Ml Vial 0 SQ TID Humalog (Insulin Lispro) 100 Unit/1 Ml Vial 5 Unit SQ TIDWMEALS Guaifenesin 600 Mg Tablet.er 600 Mg PO BID [place] Saline (Sodium Chloride) 50 Ml [place] 1 [place] NS BID PRN Acetaminophen 500 Mg Tablet 650 Mg PO Q6HRS PRN Aspirin 81 Mg Tab.chew 1 Tab PO DAILY Calcitriol 0.25 Mcg Capsule 1 Cap PO DAILY Pepcid (Famotidine) 20 Mg Tablet 20 Mg PO HS Niacin 250 Mg Tablet 250 Mg PO BID Miralax (Polyethylene Glycol 3350) 17 Gm Powd.pack 1 Packet PO DAILY Hydralazine Hcl 10 Mg Tablet 1 Tab PO PRN TID PRN Ferrous Sulfate 325 Mg Tablet 1 Tab PO DAILY Diphenhydramine Hcl 50 Mg Capsule 1 Cap PO PRN Q8HRS PRN Prochlorperazine Maleate 10 Mg Tablet 1 Tab PO PRN Q6HRS PRN Lidocaine 1 Each Adh..patch 1 Each TP PRN DAILY PRN Tegretol (Carbamazepine) 200 Mg Tablet 1 Tab PO BID Carvedilol (Carvedilol) 3.125 Mg Tablet 12.5 Mg PO BID Erythromycin (Erythromycin Base) 250 Mg Capsule.dr 250 Mg PO BID Cardizem Cd (Diltiazem Hcl) 180 Mg Cap.er.24h 120 Mg PO DAILY Amiodarone Hcl 200 Mg Tablet 1 Tab PO DAILY Lipitor (Atorvastatin Calcium) 80 Mg Tablet 80 Mg PO HS Docusate Sodium 100 Mg Capsule 1 Cap PO PRN PRN Vitals/I & O Vital Sign - Last 24 Hours 06/26/18 06/26/18 06/26/18 06/26/18 10:09 10:21 10:52 11:21 Temp 99.3 99.3 Pulse 96 93 87 90 Resp 16 16 16 18 Pulse Ox 100 100 100 99 06/26/18 06/26/18 06/26/18 06/26/18 11:22 11:36 11:50 11:50 Temp 99.6 99.6 Pulse 92 94 Resp 16 16 B/P (MAP) 136/63 (87) Pulse Ox 100 100 O2 Delivery Nasal Cannula Room Air Nasal Cannula O2 Flow Rate 2.0 2.0 2.0 06/26/18 06/26/18 06/26/18 06/26/18 14:54 16:16 16:27 16:27 Temp 100.1 100.1 Pulse 102 102 Resp 16 B/P (MAP) 122/59 (80) 122/59 Pulse Ox 100 97 97 O2 Delivery Nasal Cannula Nasal Cannula Nasal Cannula O2 Flow Rate 2.0 2.0 2.0 06/26/18 06/26/18 06/26/18 06/26/18 17:32 18:02 18:30 19:24 Pulse Ox 97 97 97 O2 Delivery Room Air Room Air Room Air Room Air 06/26/18 06/26/18 06/26/18 06/26/18 22:13 22:14 22:41 23:17 Temp 99.1 99.1 Pulse 95 Resp 18 18 16 B/P (MAP) 142/63 (89) Pulse Ox 98 O2 Delivery Room Air Room Air Room Air Room Air 06/27/18 06/27/18 06/27/18 06/27/18 03:00 07:15 08:10 08:16 Temp 98.7 98.0 98.7 98.0 Pulse 89 83 Resp 18 12 B/P (MAP) 124/61 (82) 133/62 (85) Pulse Ox 99 99 99 O2 Delivery Room Air Room Air Room Air Room Air 06/27/18 06/27/18 06/27/18 06/27/18 08:17 08:17 08:18 08:18 Pulse 83 83 83 B/P (MAP) 133/62 133/62 133/62 Pulse Ox 99 O2 Delivery Room Air 06/27/18 09:20 Pulse Ox 99 O2 Delivery Room Air Intake and Output 06/26/18 06/26/18 06/27/18 14:59 22:59 06:59 Intake Total 200 ml 0 ml 0 ml Output Total 0 ml 0 ml Balance 200 ml 0 ml 0 ml CASTLE,NIAL K III DO Jun 27, 2018 10:11
[2018-06-27 11:00] VITALS: BP 135/63
--- NOTE | 2018-06-27 13:22 | DISCH ---
DISCHARGE DISCHARGE INFORMATION: FINAL DIAGNOSIS Problems Medical Problems: (1) Diarrhea Status: Acute (2) Pressure ulcer Status: Acute (3) Renal failure Status: Acute (4) Sepsis Status: Acute CONDITION ON DISCHARGE: Stable CODE STATUS: Code Status: Full DETENTION: SNF STAY <30 DAYS: Yes HOSPICE: HOSPICE: No HOSPICE EVAL & TREAT: No POST DISCHARGE ORDERS: ACTIVITY ORDERS: Activity as tolerated WEIGHT BEARING STATUS: As tolerated BATHING ORDERS: Shower-keep dressing dry DIET AFTER DISCHARGE: Renal WOUND/INCISION CARE: Other, see below CHECKS AFTER DISCHARGE: CHECKS AFTER DISCHARGE: Check blood press - daily, Check blood sugar, ac/hs TREATMENT/EQUIPMENT ORDERS: ADAPTIVE EQUIPMENT NEEDED: None, Front wheeled walker, Raised toilet seat Physical Therapy For: Evalulation/Treatment Occupational Therapy For: Evaluation/Treatment DISCHARGE MEDICATIONS: Home Meds Active Scripts Nystatin (NYSTOP) 60 Gm Powder, 1 IRMA TP BID for moist areas MDD 1, #1 MISC Prov:DAVID PINTO MD 06/22/18 Morphine Sulfate (MORPHINE SULFATE ER) 30 Mg Tablet.er, 1 TAB PO BID for Pain MDD 1, #30 TAB Prov:DAVID PINTO MD 06/22/18 Tramadol Hcl (TRAMADOL HCL) 50 Mg Tablet, 50 MG PO Q4HRS PRN for HEADACHE MDD 1 , #30 TAB Prov:DAVID PINTO MD 06/22/18 Ticagrelor (BRILINTA) 90 Mg Tablet, 90 MG PO BID for 30 Days, #60 TAB Prov:DAVID PINTO MD 02/08/17 Reported Medications Oxycodone Hcl/Acetaminophen (OXYCODONE-ACETAMINOPHEN 10-325) 1 Each Tablet, 1 TAB PO Q4HRS for PAIN, #180 TAB 3/06/15 Sevelamer Carbonate (RENVELA) 800 Mg Tablet, 2 TAB PO TID for ESRD, #540 TAB 3 Refills 06/16/18 Melatonin (MELATONIN) 3 Mg Tablet, 9 MG PO QHS for Insomnia, TAB 06/16/18 Insulin Glargine,Hum.rec.anlog (LANTUS SOLOSTAR) 100 Unit/1 Ml Insuln.pen, 15 UNIT SQ QHS, #15 ML 3 Refills 06/16/18 Ipratropium/Albuterol Sulfate (DUONEB 0.5-3(2.5) MG/3 ML) 3 Ml Ampul.neb, 3 ML NEB QID PRN for shortness of breath, EACH 06/16/18 Insulin Lispro (HUMALOG) 100 Unit/1 Ml Vial, 0 SQ TID for Diabetes, VIAL 06/16/18 Insulin Lispro (HUMALOG) 100 Unit/1 Ml Vial, 5 UNIT SQ TIDWMEALS, VIAL 06/16/18 Guaifenesin (GUAIFENESIN) 600 Mg Tablet.er, 600 MG PO BID for Cough, TAB.SR 06/16/18 Sodium Chloride (AYR SALINE) 50 Ml [place], 1 SPRAY NS BID PRN for Congestion, # 50 ML 1 Refill 06/16/18 Acetaminophen (ACETAMINOPHEN) 500 Mg Tablet, 650 MG PO Q6HRS PRN for PAIN, TAB 06/16/18 Aspirin (ASPIRIN) 81 Mg Tab.chew, 1 TAB PO DAILY for HELP HEART, #30 TAB 3 Refills 03/09/18 Calcitriol (CALCITRIOL) 0.25 Mcg Capsule, 1 CAP PO DAILY for CALCUIM SUPPLEMENT , #30 CAP 5 Refills 03/09/18 Famotidine (PEPCID) 20 Mg Tablet, 20 MG PO HS for GERD, TAB 03/09/18 Niacin (NIACIN) 250 Mg Tablet, 250 MG PO BID for HIGH CHOLESTEROL, TAB.SR 03/09/18 Polyethylene Glycol 3350 (MIRALAX) 17 Gm Powd.pack, 1 PACKET PO DAILY for CONSTIPATION, #30 PACKET 3 Refills 03/09/18 Hydralazine Hcl (HYDRALAZINE HCL) 10 Mg Tablet, 1 TAB PO PRN TID PRN for HYPERTENSION, SEE COMMENTS, #60 TAB 3 Refills 03/09/18 Ferrous Sulfate (FERROUS SULFATE) 325 Mg Tablet, 1 TAB PO DAILY for IRON SUPPLEMENT, #30 TAB 3 Refills 03/09/18 Diphenhydramine Hcl (DIPHENHYDRAMINE HCL) 50 Mg Capsule, 1 CAP PO PRN Q8HRS PRN for ITCHING, #30 CAP 1 Refill 03/09/18 Prochlorperazine Maleate (PROCHLORPERAZINE MALEATE) 10 Mg Tablet, 1 TAB PO PRN Q6HRS PRN for NAUSEA/VOMITING, #30 TAB 3 Refills 03/09/18 Lidocaine (Lidocaine) 1 Each Adh..patch, 1 EACH TP PRN DAILY PRN for PAIN, PATCH 01/27/18 Carbamazepine (TEGRETOL) 200 Mg Tablet, 1 TAB PO BID, #60 TAB 1 Refill 12/21/17 Carvedilol (CARVEDILOL ) 3.125 Mg Tablet, 12.5 MG PO BID, #60 TAB 3 Refills 06/27/17 Erythromycin Base (ERYTHROMYCIN) 250 Mg Capsule.dr, 250 MG PO BID, CAP 06/24/17 Diltiazem Hcl (CARDIZEM CD) 180 Mg Cap.er.24h, 120 MG PO DAILY for FOR HYPERTENSION, #30 CAP 0 Refills 06/08/17 Amiodarone Hcl (AMIODARONE HCL) 200 Mg Tablet, 1 TAB PO DAILY, #90 TAB 1 Refill 06/08/17 Atorvastatin Calcium (LIPITOR) 80 Mg Tablet, 80 MG PO HS for FOR CHOLESTEROL, # 30 TAB 0 Refills 12/06/14 Docusate Sodium (DOCUSATE SODIUM) 100 Mg Capsule, 1 CAP PO PRN PRN for CONSTIPATION, #30 CAP 12/05/14 Discontinued Reported Medications Oxycodone Hcl (OXYCODONE HCL IMMED.RELEASE ) 5 Mg Tablet, 2 TAB PO PRN Q4HRS PRN for PAIN, #120 TAB 03/09/18 PAPITO REZA III DO Jun 27, 2018 13:22
[2018-06-27 15:00] VITALS: BP 137/63
--- NOTE | 2018-06-27 15:09 | DS ---
DATE OF DISCHARGE: 06/27/2018 ADMISSION DIAGNOSES: 1. Diarrhea. 2. Leukocytosis. 3. Multiple complex issues including end-stage renal disease, on dialysis. 4. Severe peripheral vascular disease. 5. History of [id number] amputation on the left. DISCHARGE DIAGNOSES: 1. Resolving diarrhea with history of atrial fibrillation. 2. Coronary artery disease. 3. Congestive heart failure. 4. Hypertension. 5. Myocardial infarction. 6. Hyperlipidemia. 7. Asthma. 8. Bronchitis. 9. Chronic obstructive pulmonary disease. 10. Pneumonia. 11. Peripheral neuropathy, status post left below-knee amputation. 12. Right chronic foot wound. 13. Depression. 14. Osteoarthritis. 15. Fibromyalgia. 16. Diabetes. 17. Peptic ulcer disease/ 18. History of coronary artery disease. 19. History of cataract surgery. 20. History of hysterectomy. CONSULTS: Dr. Mohan, Dr. Georges Dexter and Dr. Sathya Dexter. PROCEDURES: None. HOSPITAL COURSE: The patient is a pleasant middle-aged white female well known to our service. She has multiple severe complex issues. She is on dialysis. She actually has a peritoneal dialysis catheter and a hemodialysis catheter and currently on hemodialysis. We have admitted her quite a few times over the past year, most recently for severe wounds and she has had to undergo bypass surgery of the right leg, even though it still has chronic wounds. Basically, this time she came with some diarrhea. Her white count was high at 28,000. She states she just simply had a block because she had not had a bowel movement in a week or two. She was admitted overnight for observation. This morning, she looks great. Her white count is down to 13.9. She is requesting discharge. We are tentatively planning on discharge if okay with the other consults. DISPOSITION: Skilled. ACTIVITY: As tolerated. DIET: Renal. MEDICATIONS: Please see the MRAD. TOTAL TIME: 34 minutes. PAPITO REZA DO DR: [email or web address] JOB#: [id number] / [id number]
[2018-06-27 17:22] VITALS: BP 137/63
[2018-06-27] MEDS: traMADol 50 MG TABLET PO PRN (17:22)
--- NOTE | 2018-06-27 18:11 | NUR ---
REPORT CALLED TO [facility]. PATIENT REFUSED TO GET DRESSED IN THE CLOTHES SHE CAME IN AND STATED SHE WANTED TO LEAVE IN HER HOSPITAL GOWN WITH NO PANTS. PATIENTS IV REMOVED AND DRESSING APPLIED. TELE MONITOR OFF PATIENT. AWAITING FOR [facility]. WILL CONTINUE TO MONITOR PATIENT.
[2018-06-28] MEDS ORDERED: CARVEDILOL 12.5 MG TABLET. PO SCH (08:00)
== END 2018-06-27 20:55 | disposition home or self-care (01) | DRG 871 ==
LOC: ER 08:59 → 2 NORTH 10:40
PROVIDERS: ADMIT Internal Medicine; ATTEND Internal Medicine
PROC: 5A1D70Z Performance of Urinary Filtration, Intermittent, Less than 6 Hours Per Day (ICD-10-PCS; principal; 2018-06-26)
DX: A41.9 Sepsis, unspecified organism (principal); N18.6 End stage renal disease; I13.2 Hypertensive heart and chronic kidney disease with heart failure and with stage 5 chronic kidney disease, or end stage renal disease; J44.0 Chronic obstructive pulmonary disease with (acute) lower respiratory infection; N25.81 Secondary hyperparathyroidism of renal origin; L98.498 Non-pressure chronic ulcer of skin of other sites with other specified severity; E11.21 Type 2 diabetes mellitus with diabetic nephropathy; E11.22 Type 2 diabetes mellitus with diabetic chronic kidney disease; E78.5 Hyperlipidemia, unspecified; F32.9 Major depressive disorder, single episode, unspecified; I25.10 Atherosclerotic heart disease of native coronary artery without angina pectoris; I48.91 Unspecified atrial fibrillation; I50.9 Heart failure, unspecified; K27.9 Peptic ulcer, site unspecified, unspecified as acute or chronic, without hemorrhage or perforation; L89.309 Pressure ulcer of unspecified buttock, unspecified stage; F41.9 Anxiety disorder, unspecified; M19.90 Unspecified osteoarthritis, unspecified site; M79.7 Fibromyalgia; R19.7 Diarrhea, unspecified; D63.1 Anemia in chronic kidney disease; E11.319 Type 2 diabetes mellitus with unspecified diabetic retinopathy without macular edema; E11.628 Type 2 diabetes mellitus with other skin complications; E11.51 Type 2 diabetes mellitus with diabetic peripheral angiopathy without gangrene; Z82.49 Family history of ischemic heart disease and other diseases of the circulatory system; Z83.3 Family history of diabetes mellitus; Z89.421 Acquired absence of other right toe(s); Z89.512 Acquired absence of left leg below knee; Z90.710 Acquired absence of both cervix and uterus; Z95.1 Presence of aortocoronary bypass graft; Z99.2 Dependence on renal dialysis; Z86.14 Personal history of Methicillin resistant Staphylococcus aureus infection; Z95.828 Presence of other vascular implants and grafts; Z88.6 Allergy status to analgesic agent; Z88.1 Allergy status to other antibiotic agents; Z88.5 Allergy status to narcotic agent; Z88.2 Allergy status to sulfonamides; Z91.018 Allergy to other foods; Z98.42 Cataract extraction status, left eye; Z98.41 Cataract extraction status, right eye
CPT/HCPCS: 36415; 71045; 80048; 80053; 82962; 83605; 85007; 85025; 87040; 87045; 87493; 94640; 96374; J1815; J3010; J7620; 99285-25

== ENCOUNTER 2018-08-19 23:54 | Inpatient (IN) | payer MEDICARE ==
[~2018-08-19] VITALS: Ht 172.7 cm; Wt 64.0 kg
[~2018-08-19 23:54] MED LIST changes: +OXYC-411 PO
[2018-08-20 00:24] LABS: FECAL OB PT POSITIVE (NEG)
--- NOTE | 2018-08-20 00:46 | PHYS DOC ---
Past Medical History Past Medical History: Diabetes-Type II, Hypertension, NH, Renal Failure Additional Past Medical Histor: 11 NH'S, VRE, MRSA, Gastroparesis Past Surgical History: Other Additional Past Surgical Histo: LAMINECTOMY, LEFT BKA, RIGHT TOE AMPUTATION, HEART/SHOULDER/ARM/LEG STENTS Alcohol Use: None Drug Use: None Adult General Chief Complaint Chief Complaint: BLOODY STOOL HPI HPI Patient is a 52 year old female who presents with rectal bleeding. Patient is c urreny residing in a rehabilitation facility. Patient states that she has chronic constipation and frequently has to disimpact herself. Patient states that the last time she had to disimpact herself was a week and a half ago. She states that she has been having normal bowel movements for the past several days. Patient states that she frequently has blood in her stool, however, today the nurse's aid noticed that there was increased blood in her stool prompting them to send her to the ED for an evaluation. Patient states that she did not see the blood in her stool today. Upon arrival to the ED, patient does not have any complaints other than chronic back pain and chronic pain in her buttocks area due to wounds. Review of Systems Review of Systems Constitutional: Denies fever or chills Eyes: Denies change in visual acuity or eye pain HENT: Denies nasal congestion or sore throat Respiratory: Denies cough or shortness of breath Cardiovascular: Denies chest pain or palpitations GI: Denies abdominal pain, nausea, vomiting, or diarrhea : Denies dysuria or hematuria Musculoskeletal: Denies back pain or joint pain Integument: Denies rash or skin lesions Neurologic: Denies headache, focal weakness or sensory changes Complete systems were reviewed and found to be within normal limits, except as documented in this note. Current Medications Current Medications Current Medications Medications (Trade) Dose Ordered Sig/Martin Start Time Stop Time Status Last Admin Dose Admin Cefepime HCl (Maxipime) 2 gm 1X ONCE 08/20/18 03:00 08/20/18 03:01 DC 08/20/18 04:28 2 GM Sodium Chloride 1,000 ml @ 1,000 mls/hr 1X ONCE 08/20/18 03:00 08/20/18 03:59 DC 08/20/18 04:28 1,000 MLS/HR Allergies Allergies Allergies Coded Allergies Type Severity Reaction Last Updated Verified Sulfa (Sulfonamide Antibiotics) Allergy Severe Anaphylaxis 03/10/18 Yes meropenem Allergy Intermediate Rash 03/10/18 Yes piperacillin Allergy Intermediate Rash 03/10/18 Yes strawberry Allergy Intermediate 03/10/18 Yes tazobactam Allergy Intermediate 03/10/18 Yes cefazolin Adverse Reaction Intermediate Itching 03/10/18 Yes fentanyl Adverse Reaction Intermediate Nausea and Vomiting 02/05/18 Yes Physical Exam Physical Exam Constitutional: Awake, alert, cachectic in appearance. HENT: Normocephalic, atraumatic, oropharynx moist, nose normal. Eyes: PERRL, conjunctiva normal, no discharge. Neck: Normal range of motion, supple, no stridor. Cardiovascular: Heart rate regular rhythm, no murmur Lungs & Thorax: Bilateral breath sounds clear to auscultation Abdomen: Soft, no tenderness on palpation. No rebound, guarding, or rigidity. Skin: Warm, dry. Multiple chronic wounds noted diffusely including all extremities and buttocks area. Back: No midline tenderness, no CVA tenderness. Extremities: Left below knee amputation. Right lower extremity with chronic wounds and dressing in place. Fistula noted in right arm. Rectal: Stool in the rectal vault. No gross blood noted. A female service worker, AGUSTÍN Vincent, was present during the entire examination Neurologic: Alert and oriented X 3, no focal deficits noted. Psychologic: Affect normal. Speech normal. Current Patient Data Vital Signs Vital Signs Date Time Temp Pulse Resp B/P (MAP) Pulse Ox O2 Delivery O2 Flow Rate FiO2 08/20/18 03:30 89 13 145/65 (91) Room Air 08/19/18 23:57 98.7 93 98.7 Lab Values Laboratory Tests Test 08/20/18 00:13 08/20/18 00:58 08/20/18 02:15 Stool Occult Blood Positive (NEG) Sodium Level 136 mmol/L (136-145) Potassium Level 3.8 mmol/L (3.5-5.1) Chloride Level 91 mmol/L (98-107) L Carbon Dioxide Level 30 mmol/L (21-32) Anion Gap 15 (6-14) H Blood Urea Nitrogen 47 mg/dL (7-20) H Creatinine 4.7 mg/dL (0.6-1.0) H Estimated GFR (Cockcroft-Gault) 9.8 BUN/Creatinine Ratio 10 (6-20) Glucose Level 155 mg/dL (70-99) H Calcium Level 9.7 mg/dL (8.5-10.1) Magnesium Level 2.1 mg/dL (1.8-2.4) Total Bilirubin 0.8 mg/dL (0.2-1.0) Aspartate Amino Transferase (AST) 14 U/L (15-37) L Alanine Aminotransferase (ALT) 8 U/L (14-59) L Alkaline Phosphatase 107 U/L (46-116) Total Protein 7.4 g/dL (6.4-8.2) Albumin 2.4 g/dL (3.4-5.0) L Albumin/Globulin Ratio 0.5 (1.0-1.7) L White Blood Count 33.0 x10^3/uL (4.0-11.0) H Red Blood Count 3.13 x10^6/uL (3.50-5.40) L Hemoglobin 9.6 g/dL (12.0-15.5) L Hematocrit 30.2 % (36.0-47.0) L Mean Corpuscular Volume 97 fL (79-100) Mean Corpuscular Hemoglobin 31 pg (25-35) Mean Corpuscular Hemoglobin Concent 32 g/dL (31-37) Red Cell Distribution Width 17.4 % (11.5-14.5) H Platelet Count 412 x10^3/uL (140-400) H Neutrophils (%) (Auto) 90 % (31-73) H Lymphocytes (%) (Auto) 4 % (24-48) L Monocytes (%) (Auto) 6 % (0-9) Eosinophils (%) (Auto) 0 % (0-3) Basophils (%) (Auto) 0 % (0-3) Neutrophils # (Auto) 29.5 x10^3uL (1.8-7.7) H Lymphocytes # (Auto) 1.4 x10^3/uL (1.0-4.8) Monocytes # (Auto) 1.9 x10^3/uL (0.0-1.1) H Eosinophils # (Auto) 0.1 x10^3/uL (0.0-0.7) Basophils # (Auto) 0.1 x10^3/uL (0.0-0.2) Segmented Neutrophils % 91 % (35-66) H Band Neutrophils % 1 % (0-9) Lymphocytes % 6 % (24-48) L Atypical Lymphocytes % (Manual) 1 % (0-0) H Monocytes % 1 % (0-10) Platelet Estimate Increased (ADEQUATE) Giant Platelets Occ Polychromasia Slight Anisocytosis Slight Laboratory Tests 08/20/18 02:15 Laboratory Tests 08/20/18 00:58 EKG EKG [] Radiology/Procedures Radiology/Procedures CXR (preliminary read performed by ED physician) reveals right basilar atelectasis vs. infiltrate Course & Med Decision Making Course & Med Decision Making Patient is a 52 year old female who presents to the ED for evaluation of rectal bleeding. Rectal examination performed and fecal occult testing sent to lab. Stool occult blood is positive. Labs and imaging obtained and posted to chart. Patient found to be septic and treated with Cefepime, fluids, and zofran. Patient requiring admission for further evaluation and treatment. Discussed with Dr. Mcbride who is in agreement with admission. Discussed findings and plan with patient and family, who acknowledge understanding and agreement. Dragon Disclaimer Dragon Disclaimer This electronic medical record was generated, in whole or in part, using a voice recognition dictation system. Departure Departure Impression: Primary Impression: Sepsis Additional Impressions: Decubitus ulcer ESRD on hemodialysis Disposition: ADMITTED INPATIENT Admitting Physician: Other (Jacek Mcbride) Condition: GUARDED Referrals: MAGDA ARROYO MD (PCP) Problem Qualifiers Primary Impression: Sepsis Sepsis type: sepsis due to unspecified organism Qualified Codes: A41.9 - Sepsis, unspecified organism Additional Impressions: Decubitus ulcer Pressure injury location: unspecified location Pressure injury stage: unspecified pressure injury stage Qualified Codes: L89.90 - Pressure ulcer of unspecified site, unspecified stage BRITNEY LOGAN DO Aug 20, 2018 00:46
[2018-08-20 02:02] LABS: CALCIUM 9.7 mg/dL (8.5-10.1); CREATININE 4.7 mg/dL (0.6-1.0); GFR 9.8; POTASSIUM 3.8 mmol/L (3.5-5.1)
[2018-08-20 02:08] LABS: ALBUMIN 2.4 g/dL (3.4-5.0); ALBUMIN/GLOBULIN RATIO 0.5 (1.0-1.7); MAGNESIUM 2.1 mg/dL (1.8-2.4); TOTAL BILIRUBIN 0.8 mg/dL (0.2-1.0); TOTAL PROTEIN 7.4 g/dL (6.4-8.2)
[2018-08-20 02:33] LABS: BASO # 0.1 x10^3/uL (0.0-0.2); BASO % 0 % (0-3); EOS # 0.1 x10^3/uL (0.0-0.7); EOS % 0 % (0-3); HEMATOCRIT 30.2 % (36.0-47.0); HEMOGLOBIN 9.6 g/dL (12.0-15.5); LYMPH # 1.4 x10^3/uL (1.0-4.8); LYMPH % 4 % (24-48); MEAN CORPUSCULAR HEMOGLOBIN 31 pg (25-35); MEAN CORPUSCULAR HGB CONC 32 g/dL (31-37); MEAN CORPUSCULAR VOLUME 97 fL (79-100); MONO # 1.9 x10^3/uL (0.0-1.1); MONO % 6 % (0-9); NEUT # 29.5 x10^3uL (1.8-7.7); NEUT % 90 % (31-73); PLATELET COUNT 412 x10^3/uL (140-400); RED BLOOD COUNT 3.13 x10^6/uL (3.50-5.40); RED CELL DISTRIBUTION WIDTH 17.4 % (11.5-14.5)
[2018-08-20] MEDS ORDERED: CEFEPIME HCL IV Push 2 GM VIAL. IVP ONE (03:00)
[2018-08-20] MEDS ORDERED: IV NORMAL SALINE 1000ML BAG 1,000 ML IV ONE (03:00)
[2018-08-20 04:55] LABS: % ATYL 1 % (0-0); % BANDS 1 % (0-9); % LYMPHS 6 % (24-48); % MONOS 1 % (0-10); % SEGS 91 % (35-66); PLT ESTIMATE INCREASED (ADEQUATE); POLYCHROMASIA SLIGHT
[2018-08-20 04:56] LABS: ANISOCYTOSIS SLIGHT
[2018-08-20] MEDS ORDERED: ONDANSETRON PF 4 MG/2 ML VIAL. IV PRN (05:00)
[2018-08-20 06:00] VITALS: BP 140/63
--- NOTE | 2018-08-20 07:32 | RAD ---
CHEST AP ONLY Clinical Indication: LEUKOCYTOSIS Comparison: AP chest June 26, 2018. Findings: Stable median sternotomy wires. Redemonstrated vascular stents right subclavian and innominate. Atherosclerotic thoracic aorta. Coronary artery disease. Cardiac size upper limits of normal. Mild right basilar airspace disease. Stable minimal blunting of the left costophrenic angle. No pleural effusion or pneumothorax is seen. Bones appear stable. IMPRESSION: Mild right basilar airspace disease. Electronically signed by: Gino Gao MD (08/20/2018 7:29 AM) [id number]
[2018-08-20] MEDS: INSULIN LISPRO 300 UNITS/3 ML INSULN.PEN. SQ SCH ×5 (08:00→17:00)
[2018-08-20] MEDS ORDERED: ACET325T9 PO (08:02)
[2018-08-20] MEDS ORDERED: CARV12.511 PO (08:02)
[2018-08-20] MEDS ORDERED: CALC0.25 PO (08:02)
--- NOTE | 2018-08-20 08:05 | NUR ---
Received call from lab with elevated troponin 0.202. Dr Mcbride notified.
[2018-08-20] MEDS ORDERED: ERYT250T16 PO (08:08)
[2018-08-20] MEDS ORDERED: DILT120C85 PO (08:08)
[2018-08-20] MEDS ORDERED: ONDA4TAB7 PO (08:24)
[2018-08-20] MEDS ORDERED: LIDO700A39 TP (08:24)
[2018-08-20] MEDS ORDERED: IPRA3AMP29 NEB (08:24)
[2018-08-20] MEDS ORDERED: PROCHLORPERAZINE 5 MG TABLET. PO PRN (09:30)
[2018-08-20] MEDS ORDERED: ACETAMINOPHEN 325 MG TABLET. PO PRN (09:30)
[2018-08-20] MEDS ORDERED: DOCUSATE SODIUM 100 MG CAPSULE. PO PRN (09:30)
[2018-08-20] MEDS ORDERED: POLYETHYLENE GLYCOL 3350 17 GM PACKET. PO PRN (09:42)
[2018-08-20] MEDS ORDERED: ONDANSETRON ODT 4 MG TAB.RAPDIS. PO PRN (09:45)
[2018-08-20] MEDS ORDERED: ALBUTEROL SULFATE 2.5 MG/3 ML NEBU. NEB PRN (09:45)
[2018-08-20] MEDS ORDERED: SODIUM CHL/ALOE VERA NASAL GEL 14.1GM TUBE. NS PRN (10:00)
[2018-08-20] MEDS: IPRATRPIUM/ALBUTEROL 0.5/2.5MG 3 ML NEBU. NEB SCH ×4 (10:18→23:57)
--- NOTE | 2018-08-20 10:25 | PDOC1 ---
History and Physical Date of Admission Date of Admission DATE: 08/20/18 TIME: 10:22 History of Present Illness History of Present Illness Ms. Ayala, is a 52 year old female who presents with rectal bleeding. Patient is currently residing in a rehabilitation facility. Patient states that she has chronic constipation and frequently has to disimpact herself. Patient states that the last time she had to disimpact herself was a week and a half ago. She states that she has been having normal bowel movements for the past several days. Patient states that she frequently has blood in her stool, however, today the nurse's aid noticed that there was increased blood in her stool prompting them to send her to the ED for an evaluation. Patient states that she did not see the blood in her stool today. Upon arrival to the ED, patient does not have any complaints other than chronic back pain and chronic pain in her buttocks area due to wounds. Past Medical History Cardiovascular: AFIB, CAD, CHF, HTN, RI, Hyperlipidemia, Other Pulmonary: Asthma, Bronchitis, COPD, Pneumonia, Other CENTRAL NERVOUS SYSTEM: Periperal neuropathy GI: Irritable bowel disease, Peptic Ulcer disease, Other Heme/Onc: Anemia NOS Hepatobiliary: No pertinent hx Psych: Anxiety, Depression Musculoskeletal: Osteoarthritis Rheumatologic: Fibromyalgia Infectious disease: Other Renal/: Chronic renal failure Endocrine: Diabetes Past Surgical History Past Surgical History: CABG, Cataract Removal, Hysterectomy, Other Family History Family History: Diabetes, Hypertension Social History Smoke: Quit ALCOHOL: none Drugs: None Current Medications Current Medications Current Medications Sodium Chloride 1,000 ml @ 1,000 mls/hr 1X ONCE IV Last administered on 08/20/18at 04:28; Start 08/20/18 at 03:00; Stop 08/20/18 at 03:59; Status DC Cefepime HCl (Maxipime) 2 gm 1X ONCE IVP Last administered on 08/20/18at 04:28; Start 08/20/18 at 03:00; Stop 08/20/18 at 03:01; Status DC Ondansetron HCl (Zofran) 4 mg PRN Q8HRS PRN IV NAUSEA/VOMITING 1ST CHOICE Last administered on 08/20/18at 07:27; Start 08/20/18 at 05:00; Stop 08/21/18 at 04:59 Insulin Human Lispro (HumaLOG) 0-5 UNITS TIDWMEALS SQ ; Start 08/20/18 at 08:00 Dextrose (Dextrose 50%-Water Syringe) 12.5 gm PRN Q15MIN PRN IV SEE COMMENTS; Start 08/20/18 at 05:00 Acetaminophen (Tylenol) 650 mg PRN Q6HRS PRN PO MILD PAIN / TEMP; Start 08/20/18 at 09:30 Amiodarone HCl (Cordarone) 200 mg DAILY PO ; Start 08/20/18 at 10:00 Aspirin (Children'S Aspirin) 81 mg DAILY PO ; Start 08/20/18 at 10:00 Carbamazepine (TEGretol) 200 mg BID PO ; Start 08/20/18 at 10:00 Carvedilol (Coreg) 12.5 mg BIDWMEALS PO ; Start 08/20/18 at 10:00 Docusate Sodium (Colace) 100 mg PRN Q8HRS PRN PO CONSTIPATION; Start 08/20/18 at 09:30 Famotidine (Pepcid) 20 mg HS PO ; Start 08/20/18 at 21:00 Guaifenesin (Mucinex) 600 mg BID PO ; Start 08/20/18 at 10:00 Insulin Glargine (Lantus) 15 units QHS SQ ; Start 08/20/18 at 21:00 Insulin Human Lispro (HumaLOG) 5 units TIDWMEALS SQ ; Start 08/20/18 at 12:00 Insulin Human Lispro (HumaLOG VIAL) 5 unit TIDWMEALS SQ ; Start 08/20/18 at 12:00; Status UNV Albuterol/ Ipratropium (Duoneb) 3 ml Q4HRS NEB ; Start 08/20/18 at 12:00 Albuterol Sulfate (Ventolin Neb Soln) 2.5 mg PRN Q4HRS PRN NEB SHORTNESS OF BREATH; Start 08/20/18 at 09:45 Morphine Sulfate (Ms Contin) 30 mg BID PO ; Start 08/20/18 at 10:00 Nystatin (Nystop) 1 susanna BID TP ; Start 08/20/18 at 10:00 Oxycodone/ Acetaminophen (Percocet 10/325) 1 tab PRN Q4HRS PRN PO MODERATE - SEVERE PAIN; Start 08/20/18 at 12:00 Prochlorperazine Maleate (Compazine) 10 mg PRN Q6HRS PRN PO NAUSEA/VOMITING; Start 08/20/18 at 09:30 Sevelamer Carbonate (Renvela) 1,600 mg TIDWMEALS PO ; Start 08/20/18 at 12:00 Ticagrelor (Brilinta) 90 mg BID PO ; Start 08/20/18 at 10:00 Atorvastatin Calcium (Lipitor) 80 mg QHS PO ; Start 08/20/18 at 21:00 Calcitriol (Rocaltrol) 0.25 mcg DAILY PO ; Start 08/20/18 at 10:00 Diltiazem HCl (Cardizem 24hr Cd) 120 mg DAILY PO ; Start 08/20/18 at 10:00 Erythromycin (E-Mycin) 250 mg BID PO ; Start 08/20/18 at 10:00 Hydralazine HCl (Apresoline) 10 mg PRN TID PRN PO ELEVATED BP; Start 08/20/18 at 14:00 Lidocaine (Lidoderm) 1 patch DAILY TD ; Start 08/20/18 at 10:00 Non-Formulary Medication (Melatonin ) 9 mg QHS PO ; Start 08/20/18 at 21:00; Status UNV Niacin (Slo-Niacin) 250 mg BID PO ; Start 08/20/18 at 10:00 Ondansetron HCl (Zofran Odt) 4 mg PRN Q6HRS PRN PO NAUSEA/VOMITING, 1ST CHOICE; Start 08/20/18 at 09:45 Polyethylene Glycol (miraLAX PACKET) 17 gm PRN Q8HRS PRN PO CONSTIPATION; Start 08/20/18 at 09:42 Sodium Chloride ([place] Saline Nasal) 1 susanna PRN BID PRN NS NASAL CONGESTION; Start 08/20/18 at 10:00 Hydromorphone HCl (Dilaudid) 1 mg PRN Q4HRS PRN IVP PAIN; Start 08/20/18 at 09:30 Miscellaneous (Lidoderm Patch Removal) 1 ea QHS MC ; Start 08/20/18 at 21:00 Active Scripts Active Nystop (Nystatin) 60 Gm Powder 1 Susanna TP BID MDD 1 Morphine Sulfate Er (Morphine Sulfate) 30 Mg Tablet.er 1 Tab PO BID MDD 1 Tramadol Hcl 50 Mg Tablet 50 Mg PO Q4HRS PRN MDD 1 Brilinta (Ticagrelor) 90 Mg Tablet 90 Mg PO BID 30 Days Reported Zofran (Ondansetron Hcl) 4 Mg Tablet 1 Tab PO Q6HRS Lidocaine 1 Each Adh..patch 1 Each TP DAILY Duoneb 0.5-3(2.5) Mg/3 Ml (Albuterol/Ipratropium) 3 Ml Ampul.neb 3 Ml NEB Q4HRS Uriel-Tab (Erythromycin Base) 250 Mg Tablet.dr 250 Mg PO BID Diltiazem 24HR Cd (Diltiazem Hcl) 120 Mg Cap.er.24h 1 Cap PO DAILY Carvedilol (Carvedilol) 12.5 Mg Tablet 12.5 Mg PO BIDWMEALS Tylenol (Acetaminophen) 325 Mg Tablet 2 Tab PO PRN Q6HRS Oxycodone-Acetaminophen 10-325 (Oxycodone Hcl/Acetaminophen) 1 Each Tablet 1 Tab PO Q4HRS Renvela (Sevelamer Carbonate) 800 Mg Tablet 2 Tab PO TID Melatonin 3 Mg Tablet 9 Mg PO QHS Lantus Solostar (Insulin Glargine,Hum.rec.anlog) 100 Unit/1 Ml Insuln.pen 15 Unit SQ QHS Duoneb 0.5-3(2.5) Mg/3 Ml (Albuterol/Ipratropium) 3 Ml Ampul.neb 3 Ml NEB QID PRN Humalog (Insulin Lispro) 100 Unit/1 Ml Vial 0 SQ TID Humalog (Insulin Lispro) 100 Unit/1 Ml Vial 5 Unit SQ TIDWMEALS Guaifenesin 600 Mg Tablet.er 600 Mg PO BID [place] Saline (Sodium Chloride) 50 Ml [place] 1 [place] NS BID PRN Acetaminophen 500 Mg Tablet 650 Mg PO Q6HRS PRN Aspirin 81 Mg Tab.chew 1 Tab PO DAILY Calcitriol 0.25 Mcg Capsule 1 Cap PO DAILY Pepcid (Famotidine) 20 Mg Tablet 20 Mg PO HS Niacin 250 Mg Tablet 250 Mg PO BID Miralax (Polyethylene Glycol 3350) 17 Gm Powd.pack 1 Packet PO Q 8HRS PRN Hydralazine Hcl 10 Mg Tablet 1 Tab PO PRN TID PRN Ferrous Sulfate 325 Mg Tablet 1 Tab PO DAILY Diphenhydramine Hcl 50 Mg Capsule 1 Cap PO PRN Q8HRS PRN Prochlorperazine Maleate 10 Mg Tablet 1 Tab PO PRN Q6HRS PRN Tegretol (Carbamazepine) 200 Mg Tablet 1 Tab PO BID Amiodarone Hcl 200 Mg Tablet 1 Tab PO DAILY Lipitor (Atorvastatin Calcium) 80 Mg Tablet 80 Mg PO HS Docusate Sodium 100 Mg Capsule 1 Cap PO Q8HRS PRN Allergies Allergies: Coded Allergies: Sulfa (Sulfonamide Antibiotics) (Verified Allergy, Severe, Anaphylaxis, 03/10/18) meropenem (Verified Allergy, Intermediate, Rash, 03/10/18) Tolerates ancef piperacillin (Verified Allergy, Intermediate, Rash, 03/10/18) Tolerates ancef strawberry (Verified Allergy, Intermediate, 03/10/18) tazobactam (Verified Allergy, Intermediate, 03/10/18) cefazolin (Verified Adverse Reaction, Intermediate, Itching, 03/10/18) Causes Vomiting fentanyl (Verified Adverse Reaction, Intermediate, Nausea and Vomiting, 02/05/18) Vomiting ROS General: YES: Chills, Fatigue, Malaise PSYCHOLOGICAL ROS: YES: Concentration difficultie, Irritablity, Sleep disturbances Eyes: No Blurry vision, No Decreased vision, No Double vision, No Dry eyes, No Excessive tearing, No Eye Pain, No Itchy Eyes, No Loss of vision, No Photophobia, No Scotomata, No Uses contacts, No Uses glasses, No Other HEENT: No: Visual Changes, Hearing change, Nasal congestion, Nasal discharge, Oral lesions, Sinus pain, Sore Throat, Epistaxis, Sneezing, Snoring, Tinnitus, Vertigo, Vocal changes, Other Cardiovascular: No Chest Pain, No Palpitations, No Orthopnea, No Paroxysmal Noc. Dyspnea, No Edema, No Lt Headedness, No Other Gastrointestinal: Yes Abdominal Pain Musculoskeletal: Yes Gait Disturbance, Yes Joint Pain, Yes Joint Stiffness Neurological: Yes Headaches; No Behavorial Changes, No Bowel/Bladder ControlChng, No Confusion, No Dizziness, No Impaired Coord/balance, No Memory Loss, No Seizures, No Speech Problems, No Tremors, No Visual Changes, No Weakness, No Other Skin: No Dry Skin, No Eczema, No Hair Changes, No Lumps, No Mole Changes, No Mo ttling, No Nail Changes, No Pruritus, No Rash, No Skin Lesion Changes, No Other, No Acne Physical Exam General: Alert, Oriented X3, Cooperative, moderate distress HEENT: PERRLA Lungs: Clear to auscultation Heart: S1S2, no gallops Abdomen: Soft Extremities: No edema, Normal pulses Skin: No significant lesion, Other (dry, flaky) Neuro: Normal speech, Normal tone, Sensation intact, Cranial nerves 3-12 NL Psych/Mental Status: Other (withdrawn, complains of pain) Vitals Vitals Vital Signs Date Time Temp Pulse Resp B/P (MAP) Pulse Ox O2 Delivery O2 Flow Rate FiO2 08/20/18 06:00 99.7 92 18 140/63 (88) 93 Room Air 99.7 Labs Labs Laboratory Tests Test 08/20/18 00:13 08/20/18 00:58 08/20/18 02:15 08/20/18 05:15 Stool Occult Blood Positive (NEG) Sodium Level 136 mmol/L (136-145) Potassium Level 3.8 mmol/L (3.5-5.1) Chloride Level 91 mmol/L (98-107) Carbon Dioxide Level 30 mmol/L (21-32) Anion Gap 15 (6-14) Blood Urea Nitrogen 47 mg/dL (7-20) Creatinine 4.7 mg/dL (0.6-1.0) Estimated GFR (Cockcroft-Gault) 9.8 BUN/Creatinine Ratio 10 (6-20) Glucose Level 155 mg/dL (70-99) Calcium Level 9.7 mg/dL (8.5-10.1) Magnesium Level 2.1 mg/dL (1.8-2.4) Total Bilirubin 0.8 mg/dL (0.2-1.0) Aspartate Amino Transf (AST/SGOT) 14 U/L (15-37) Alanine Aminotransferase (ALT/SGPT) 8 U/L (14-59) Alkaline Phosphatase 107 U/L (46-116) Total Protein 7.4 g/dL (6.4-8.2) Albumin 2.4 g/dL (3.4-5.0) Albumin/Globulin Ratio 0.5 (1.0-1.7) White Blood Count 33.0 x10^3/uL (4.0-11.0) Red Blood Count 3.13 x10^6/uL (3.50-5.40) Hemoglobin 9.6 g/dL (12.0-15.5) Hematocrit 30.2 % (36.0-47.0) Mean Corpuscular Volume 97 fL (79-100) Mean Corpuscular Hemoglobin 31 pg (25-35) Mean Corpuscular Hemoglobin Concent 32 g/dL (31-37) Red Cell Distribution Width 17.4 % (11.5-14.5) Platelet Count 412 x10^3/uL (140-400) Neutrophils (%) (Auto) 90 % (31-73) Lymphocytes (%) (Auto) 4 % (24-48) Monocytes (%) (Auto) 6 % (0-9) Eosinophils (%) (Auto) 0 % (0-3) Basophils (%) (Auto) 0 % (0-3) Neutrophils # (Auto) 29.5 x10^3uL (1.8-7.7) Lymphocytes # (Auto) 1.4 x10^3/uL (1.0-4.8) Monocytes # (Auto) 1.9 x10^3/uL (0.0-1.1) Eosinophils # (Auto) 0.1 x10^3/uL (0.0-0.7) Basophils # (Auto) 0.1 x10^3/uL (0.0-0.2) Segmented Neutrophils % 91 % (35-66) Band Neutrophils % 1 % (0-9) Lymphocytes % 6 % (24-48) Atypical Lymphocytes % (Manual) 1 % (0-0) Monocytes % 1 % (0-10) Platelet Estimate Increased (ADEQUATE) Giant Platelets Occ Polychromasia Slight Anisocytosis Slight Lactic Acid Level 1.3 mmol/L (0.4-2.0) Test 08/20/18 07:00 Lactic Acid Level 1.6 mmol/L (0.4-2.0) Troponin I Quantitative 0.202 ng/mL (0.000-0.055) Laboratory Tests Test 08/20/18 00:13 08/20/18 00:58 08/20/18 02:15 08/20/18 05:15 Stool Occult Blood Positive (NEG) Sodium Level 136 mmol/L (136-145) Potassium Level 3.8 mmol/L (3.5-5.1) Chloride Level 91 mmol/L (98-107) Carbon Dioxide Level 30 mmol/L (21-32) Anion Gap 15 (6-14) Blood Urea Nitrogen 47 mg/dL (7-20) Creatinine 4.7 mg/dL (0.6-1.0) Estimated GFR (Cockcroft-Gault) 9.8 BUN/Creatinine Ratio 10 (6-20) Glucose Level 155 mg/dL (70-99) Calcium Level 9.7 mg/dL (8.5-10.1) Magnesium Level 2.1 mg/dL (1.8-2.4) Total Bilirubin 0.8 mg/dL (0.2-1.0) Aspartate Amino Transf (AST/SGOT) 14 U/L (15-37) Alanine Aminotransferase (ALT/SGPT) 8 U/L (14-59) Alkaline Phosphatase 107 U/L (46-116) Total Protein 7.4 g/dL (6.4-8.2) Albumin 2.4 g/dL (3.4-5.0) Albumin/Globulin Ratio 0.5 (1.0-1.7) White Blood Count 33.0 x10^3/uL (4.0-11.0) Red Blood Count 3.13 x10^6/uL (3.50-5.40) Hemoglobin 9.6 g/dL (12.0-15.5) Hematocrit 30.2 % (36.0-47.0) Mean Corpuscular Volume 97 fL (79-100) Mean Corpuscular Hemoglobin 31 pg (25-35) Mean Corpuscular Hemoglobin Concent 32 g/dL (31-37) Red Cell Distribution Width 17.4 % (11.5-14.5) Platelet Count 412 x10^3/uL (140-400) Neutrophils (%) (Auto) 90 % (31-73) Lymphocytes (%) (Auto) 4 % (24-48) Monocytes (%) (Auto) 6 % (0-9) Eosinophils (%) (Auto) 0 % (0-3) Basophils (%) (Auto) 0 % (0-3) Neutrophils # (Auto) 29.5 x10^3uL (1.8-7.7) Lymphocytes # (Auto) 1.4 x10^3/uL (1.0-4.8) Monocytes # (Auto) 1.9 x10^3/uL (0.0-1.1) Eosinophils # (Auto) 0.1 x10^3/uL (0.0-0.7) Basophils # (Auto) 0.1 x10^3/uL (0.0-0.2) Segmented Neutrophils % 91 % (35-66) Band Neutrophils % 1 % (0-9) Lymphocytes % 6 % (24-48) Atypical Lymphocytes % (Manual) 1 % (0-0) Monocytes % 1 % (0-10) Platelet Estimate Increased (ADEQUATE) Giant Platelets Occ Polychromasia Slight Anisocytosis Slight Lactic Acid Level 1.3 mmol/L (0.4-2.0) Test 08/20/18 07:00 Lactic Acid Level 1.6 mmol/L (0.4-2.0) Troponin I Quantitative 0.202 ng/mL (0.000-0.055) VTE Prophylaxis Ordered VTE Prophylaxis Devices: Contraindicated VTE Pharmacological Prophylaxi: Yes Assessment/Plan Assessment/Plan rectal bleeding opioid induced constipation, recent impaction, should we try relistor? I consult Dm1 CAD, ESRD chronic elevated troponin s/p BKA, poorly mobile acute on chronic pain, opioid dependence admit ROMI GOSS MD Aug 20, 2018 10:25
[2018-08-20] MEDS: TICAGRELOR 90 MG TABLET. PO SCH ×2 (10:58→20:26)
[2018-08-20] MEDS: LIDOCAINE (700MG/PATCH) PATCH. TD SCH (10:58)
[2018-08-20] MEDS: CALCITRIOL 0.25 MCG CAPSULE. PO SCH (10:58)
[2018-08-20] MEDS: MORPHINE ER 15 MG TABLET.ER PO SCH ×2 (10:58→20:27)
[2018-08-20] MEDS: AMIODARONE HCL 200 MG TABLET. PO SCH (10:59)
[2018-08-20] MEDS: ASPIRIN CHEWABLE 81 MG TABLET. PO SCH (10:59)
[2018-08-20] MEDS: NYSTATIN TOPICAL POWDER 15GM BOTTLE. TP SCH ×2 (10:59→20:36)
[2018-08-20] MEDS: NIACIN ER 250 MG TABLET.ER PO SCH ×2 (11:05→20:25)
[2018-08-20] MEDS: ERYTHROMYCIN BASE 250 MG TABLET PO SCH ×2 (11:05→20:26)
[2018-08-20] MEDS: carBAMazepine 200 MG TABLET PO SCH ×2 (11:05→20:26)
[2018-08-20 11:06] VITALS: BP 144/60
[2018-08-20] MEDS: CARVEDILOL 12.5 MG TABLET. PO SCH ×2 (11:06→17:48)
--- NOTE | 2018-08-20 11:22 | PDOC2 ---
CONSULT Date of Consult Date of Consult DATE: 08/20/18 TIME: 11:17 Reason for Consult Reason for Consult: ESRD Referring Physician Referring Physician: WOLFGANG Identification/Chief Complaint Chief Complaint RECTAL BLEEDING Source Source: Chart review History of Present Illness Reason for Visit: THIS IS A 52 YR OLD ESRD PT ON OP HD ON TTS. SHE IS HERE WITH RECTAL BLEEDING. SHE HAS HAD PROBLEMS WITH SEVERE CONSTIPATION AND HAS HAD TO DISIMPACT HERSELF MANY TIMES IN THE PAST. SHE HAS HAD CHRONIC PROBLEMS WITH THIS DUE TO NEED FOR OPIOID USE. SHE HAS BEEN DEBILITATED DUE TO HER DM I AND DIFFUSE END ORGAN DAMAGE DUE TO THAT. SHE IS NOTED TO HAVE LEUCOCYTOSIS WELL AND HAS HAD LE W OUNDS THAT HAVE BEEN SLOW TO HEAL. LABS ARE C/W ESRD Past Medical History Cardiovascular: AFIB, CAD, CHF, HTN, PA, Hyperlipidemia, Other Pulmonary: Asthma, Bronchitis, COPD, Pneumonia, Other CENTRAL NERVOUS SYSTEM: Periperal neuropathy GI: Irritable bowel disease, Peptic Ulcer disease, Other Heme/Onc: Anemia NOS Hepatobiliary: No pertinent hx Psych: Anxiety, Depression Musculoskeletal: Osteoarthritis Rheumatologic: Fibromyalgia Infectious disease: Other Renal/: Chronic renal failure Endocrine: Diabetes, Hyperparathyroidism Past Surgical History Past Surgical History: CABG, Cataract Removal, Hysterectomy, Other Family History Family History: Diabetes, Hypertension Social History Quit ALCOHOL: none Drugs: None Lives: with Family Current Medications Current Medications Current Medications Sodium Chloride 1,000 ml @ 1,000 mls/hr 1X ONCE IV Last administered on 08/20/18at 04:28; Start 08/20/18 at 03:00; Stop 08/20/18 at 03:59; Status DC Cefepime HCl (Maxipime) 2 gm 1X ONCE IVP Last administered on 08/20/18at 04:28; Start 08/20/18 at 03:00; Stop 08/20/18 at 03:01; Status DC Ondansetron HCl (Zofran) 4 mg PRN Q8HRS PRN IV NAUSEA/VOMITING 1ST CHOICE Last administered on 08/20/18at 07:27; Start 08/20/18 at 05:00; Stop 08/21/18 at 04:59 Insulin Human Lispro (HumaLOG) 0-5 UNITS TIDWMEALS SQ ; Start 08/20/18 at 08:00 Dextrose (Dextrose 50%-Water Syringe) 12.5 gm PRN Q15MIN PRN IV SEE COMMENTS; Start 08/20/18 at 05:00 Acetaminophen (Tylenol) 650 mg PRN Q6HRS PRN PO MILD PAIN / TEMP; Start 08/20/18 at 09:30 Amiodarone HCl (Cordarone) 200 mg DAILY PO Last administered on 08/20/18at 10:59; Start 08/20/18 at 10:00 Aspirin (Children'S Aspirin) 81 mg DAILY PO Last administered on 08/20/18 10:59; Start 08/20/18 at 10:00 Carbamazepine (TEGretol) 200 mg BID PO Last administered on 08/20/18at 11:05; Start 08/20/18 at 10:00 Carvedilol (Coreg) 12.5 mg BIDWMEALS PO Last administered on 08/20/18at 11:06; Start 08/20/18 at 10:00 Docusate Sodium (Colace) 100 mg PRN Q8HRS PRN PO CONSTIPATION; Start 08/20/18 at 09:30 Famotidine (Pepcid) 20 mg HS PO ; Start 08/20/18 at 21:00 Guaifenesin (Mucinex) 600 mg BID PO Last administered on 08/20/18at 10:59; Start 08/20/18 at 10:00 Insulin Glargine (Lantus) 15 units QHS SQ ; Start 08/20/18 at 21:00 Insulin Human Lispro (HumaLOG) 5 units TIDWMEALS SQ ; Start 08/20/18 at 12:00 Insulin Human Lispro (HumaLOG VIAL) 5 unit TIDWMEALS SQ ; Start 08/20/18 at 12:00; Status UNV Albuterol/ Ipratropium (Duoneb) 3 ml Q4HRS NEB Last administered on 08/20/18at 10:18; Start 08/20/18 at 12:00 Albuterol Sulfate (Ventolin Neb Soln) 2.5 mg PRN Q4HRS PRN NEB SHORTNESS OF BREATH; Start 08/20/18 at 09:45 Morphine Sulfate (Ms Contin) 30 mg BID PO Last administered on 08/20/18at 10:58; Start 08/20/18 at 10:00 Nystatin (Nystop) 1 susanna BID TP Last administered on 08/20/18at 10:59; Start 08/20/18 at 10:00 Oxycodone/ Acetaminophen (Percocet 10/325) 1 tab PRN Q4HRS PRN PO MODERATE - SEVERE PAIN; Start 08/20/18 at 12:00 Prochlorperazine Maleate (Compazine) 10 mg PRN Q6HRS PRN PO NAUSEA/VOMITING; Start 08/20/18 at 09:30 Sevelamer Carbonate (Renvela) 1,600 mg TIDWMEALS PO ; Start 08/20/18 at 12:00 Ticagrelor (Brilinta) 90 mg BID PO Last administered on 08/20/18at 10:58; Start 08/20/18 at 10:00 Atorvastatin Calcium (Lipitor) 80 mg QHS PO ; Start 08/20/18 at 21:00 Calcitriol (Rocaltrol) 0.25 mcg DAILY PO Last administered on 08/20/18at 10:58; Start 08/20/18 at 10:00 Diltiazem HCl (Cardizem 24hr Cd) 120 mg DAILY PO Last administered on 08/20/18at 11:06; Start 08/20/18 at 10:00 Erythromycin (E-Mycin) 250 mg BID PO Last administered on 08/20/18at 11:05; Start 08/20/18 at 10:00 Hydralazine HCl (Apresoline) 10 mg PRN TID PRN PO ELEVATED BP; Start 08/20/18 at 14:00 Lidocaine (Lidoderm) 1 patch DAILY TD Last administered on 08/20/18at 10:58; Start 08/20/18 at 10:00 Non-Formulary Medication (Melatonin ) 9 mg QHS PO ; Start 08/20/18 at 21:00; Status UNV Niacin (Slo-Niacin) 250 mg BID PO Last administered on 08/20/18at 11:05; Start 08/20/18 at 10:00 Ondansetron HCl (Zofran Odt) 4 mg PRN Q6HRS PRN PO NAUSEA/VOMITING, 1ST CHOICE; Start 08/20/18 at 09:45 Polyethylene Glycol (miraLAX PACKET) 17 gm PRN Q8HRS PRN PO CONSTIPATION; Start 08/20/18 at 09:42 Sodium Chloride (Houston Saline Nasal) 1 susanna PRN BID PRN NS NASAL CONGESTION; Start 08/20/18 at 10:00 Hydromorphone HCl (Dilaudid) 1 mg PRN Q4HRS PRN IVP PAIN; Start 08/20/18 at 09:30 Miscellaneous (Lidoderm Patch Removal) 1 ea QHS MC ; Start 08/20/18 at 21:00 Active Scripts Active Nystop (Nystatin) 60 Gm Powder 1 Susanna TP BID MDD 1 Morphine Sulfate Er (Morphine Sulfate) 30 Mg Tablet.er 1 Tab PO BID MDD 1 Tramadol Hcl 50 Mg Tablet 50 Mg PO Q4HRS PRN MDD 1 Brilinta (Ticagrelor) 90 Mg Tablet 90 Mg PO BID 30 Days Reported Zofran (Ondansetron Hcl) 4 Mg Tablet 1 Tab PO Q6HRS Lidocaine 1 Each Adh..patch 1 Each TP DAILY Duoneb 0.5-3(2.5) Mg/3 Ml (Albuterol/Ipratropium) 3 Ml Ampul.neb 3 Ml NEB Q4HRS Uriel-Tab (Erythromycin Base) 250 Mg Tablet.dr 250 Mg PO BID Diltiazem 24HR Cd (Diltiazem Hcl) 120 Mg Cap.er.24h 1 Cap PO DAILY Carvedilol (Carvedilol) 12.5 Mg Tablet 12.5 Mg PO BIDWMEALS Tylenol (Acetaminophen) 325 Mg Tablet 2 Tab PO PRN Q6HRS Oxycodone-Acetaminophen 10-325 (Oxycodone Hcl/Acetaminophen) 1 Each Tablet 1 Tab PO Q4HRS Renvela (Sevelamer Carbonate) 800 Mg Tablet 2 Tab PO TID Melatonin 3 Mg Tablet 9 Mg PO QHS Lantus Solostar (Insulin Glargine,Hum.rec.anlog) 100 Unit/1 Ml Insuln.pen 15 Unit SQ QHS Duoneb 0.5-3(2.5) Mg/3 Ml (Albuterol/Ipratropium) 3 Ml Ampul.neb 3 Ml NEB QID PRN Humalog (Insulin Lispro) 100 Unit/1 Ml Vial 0 SQ TID Humalog (Insulin Lispro) 100 Unit/1 Ml Vial 5 Unit SQ TIDWMEALS Guaifenesin 600 Mg Tablet.er 600 Mg PO BID [place] Saline (Sodium Chloride) 50 Ml Philpot 1 Philpot NS BID PRN Acetaminophen 500 Mg Tablet 650 Mg PO Q6HRS PRN Aspirin 81 Mg Tab.chew 1 Tab PO DAILY Calcitriol 0.25 Mcg Capsule 1 Cap PO DAILY Pepcid (Famotidine) 20 Mg Tablet 20 Mg PO HS Niacin 250 Mg Tablet 250 Mg PO BID Miralax (Polyethylene Glycol 3350) 17 Gm Powd.pack 1 Packet PO Q 8HRS PRN Hydralazine Hcl 10 Mg Tablet 1 Tab PO PRN TID PRN Ferrous Sulfate 325 Mg Tablet 1 Tab PO DAILY Diphenhydramine Hcl 50 Mg Capsule 1 Cap PO PRN Q8HRS PRN Prochlorperazine Maleate 10 Mg Tablet 1 Tab PO PRN Q6HRS PRN Tegretol (Carbamazepine) 200 Mg Tablet 1 Tab PO BID Amiodarone Hcl 200 Mg Tablet 1 Tab PO DAILY Lipitor (Atorvastatin Calcium) 80 Mg Tablet 80 Mg PO HS Docusate Sodium 100 Mg Capsule 1 Cap PO Q8HRS PRN Allergies Allergies: Coded Allergies: Sulfa (Sulfonamide Antibiotics) (Verified Allergy, Severe, Anaphylaxis, 03/10/18) meropenem (Verified Allergy, Intermediate, Rash, 03/10/18) Tolerates ancef piperacillin (Verified Allergy, Intermediate, Rash, 03/10/18) Tolerates ancef strawberry (Verified Allergy, Intermediate, 03/10/18) tazobactam (Verified Allergy, Intermediate, 03/10/18) cefazolin (Verified Adverse Reaction, Intermediate, Itching, 03/10/18) Causes Vomiting fentanyl (Verified Adverse Reaction, Intermediate, Nausea and Vomiting, 02/05/18) Vomiting ROS General: YES: Fatigue, Malaise, Appetite PSYCHOLOGICAL ROS: YES: Anxiety, Depression Eyes: Yes Decreased vision ALLERGY AND IMMUNOLOGY: YES: Seasonal Allergies Respiratory: YES: Cough Gastrointestinal: Yes Constipation, Yes Hematochezia Genitourinary: YES Other (ANURIA) Musculoskeletal: Yes Muscular Weakness Neurological: Yes Weakness Skin: Yes Dry Skin Physical Exam General: Alert, Cooperative, No acute distress HEENT: Atraumatic, PERRLA Lungs: Clear to auscultation Heart: Regular rate, Normal S1, Normal S2 Abdomen: Normal bowel sounds, Soft, No tenderness, No hepatosplenomegaly Extremities: Other (DIFFUSE ATROPHY) Skin: Other (DIFFUSE LE ERYTHEMA AND STASIS DISCOLORATION) Neuro: Normal speech Psych/Mental Status: Other (FLAT AFFECT) MUSCULOSKELETAL: Other (DIFFUSE MUSCLE ATROPHY AND LE AMP) Vitals VITALS Vital Signs Date Time Temp Pulse Resp B/P (MAP) Pulse Ox O2 Delivery O2 Flow Rate FiO2 08/20/18 11:06 92 140/63 08/20/18 11:06 98.4 14 96 Room Air 98.4 Labs Labs Laboratory Tests Test 08/20/18 00:13 08/20/18 00:58 08/20/18 02:15 08/20/18 05:15 Stool Occult Blood Positive (NEG) Sodium Level 136 mmol/L (136-145) Potassium Level 3.8 mmol/L (3.5-5.1) Chloride Level 91 mmol/L (98-107) Carbon Dioxide Level 30 mmol/L (21-32) Anion Gap 15 (6-14) Blood Urea Nitrogen 47 mg/dL (7-20) Creatinine 4.7 mg/dL (0.6-1.0) Estimated GFR (Cockcroft-Gault) 9.8 BUN/Creatinine Ratio 10 (6-20) Glucose Level 155 mg/dL (70-99) Calcium Level 9.7 mg/dL (8.5-10.1) Magnesium Level 2.1 mg/dL (1.8-2.4) Total Bilirubin 0.8 mg/dL (0.2-1.0) Aspartate Amino Transf (AST/SGOT) 14 U/L (15-37) Alanine Aminotransferase (ALT/SGPT) 8 U/L (14-59) Alkaline Phosphatase 107 U/L (46-116) Total Protein 7.4 g/dL (6.4-8.2) Albumin 2.4 g/dL (3.4-5.0) Albumin/Globulin Ratio 0.5 (1.0-1.7) White Blood Count 33.0 x10^3/uL (4.0-11.0) Red Blood Count 3.13 x10^6/uL (3.50-5.40) Hemoglobin 9.6 g/dL (12.0-15.5) Hematocrit 30.2 % (36.0-47.0) Mean Corpuscular Volume 97 fL (79-100) Mean Corpuscular Hemoglobin 31 pg (25-35) Mean Corpuscular Hemoglobin Concent 32 g/dL (31-37) Red Cell Distribution Width 17.4 % (11.5-14.5) Platelet Count 412 x10^3/uL (140-400) Neutrophils (%) (Auto) 90 % (31-73) Lymphocytes (%) (Auto) 4 % (24-48) Monocytes (%) (Auto) 6 % (0-9) Eosinophils (%) (Auto) 0 % (0-3) Basophils (%) (Auto) 0 % (0-3) Neutrophils # (Auto) 29.5 x10^3uL (1.8-7.7) Lymphocytes # (Auto) 1.4 x10^3/uL (1.0-4.8) Monocytes # (Auto) 1.9 x10^3/uL (0.0-1.1) Eosinophils # (Auto) 0.1 x10^3/uL (0.0-0.7) Basophils # (Auto) 0.1 x10^3/uL (0.0-0.2) Segmented Neutrophils % 91 % (35-66) Band Neutrophils % 1 % (0-9) Lymphocytes % 6 % (24-48) Atypical Lymphocytes % (Manual) 1 % (0-0) Monocytes % 1 % (0-10) Platelet Estimate Increased (ADEQUATE) Giant Platelets Occ Polychromasia Slight Anisocytosis Slight Lactic Acid Level 1.3 mmol/L (0.4-2.0) Test 08/20/18 07:00 Lactic Acid Level 1.6 mmol/L (0.4-2.0) Troponin I Quantitative 0.202 ng/mL (0.000-0.055) Laboratory Tests Test 08/20/18 00:13 08/20/18 00:58 08/20/18 02:15 08/20/18 05:15 Stool Occult Blood Positive (NEG) Sodium Level 136 mmol/L (136-145) Potassium Level 3.8 mmol/L (3.5-5.1) Chloride Level 91 mmol/L (98-107) Carbon Dioxide Level 30 mmol/L (21-32) Anion Gap 15 (6-14) Blood Urea Nitrogen 47 mg/dL (7-20) Creatinine 4.7 mg/dL (0.6-1.0) Estimated GFR (Cockcroft-Gault) 9.8 BUN/Creatinine Ratio 10 (6-20) Glucose Level 155 mg/dL (70-99) Calcium Level 9.7 mg/dL (8.5-10.1) Magnesium Level 2.1 mg/dL (1.8-2.4) Total Bilirubin 0.8 mg/dL (0.2-1.0) Aspartate Amino Transf (AST/SGOT) 14 U/L (15-37) Alanine Aminotransferase (ALT/SGPT) 8 U/L (14-59) Alkaline Phosphatase 107 U/L (46-116) Total Protein 7.4 g/dL (6.4-8.2) Albumin 2.4 g/dL (3.4-5.0) Albumin/Globulin Ratio 0.5 (1.0-1.7) White Blood Count 33.0 x10^3/uL (4.0-11.0) Red Blood Count 3.13 x10^6/uL (3.50-5.40) Hemoglobin 9.6 g/dL (12.0-15.5) Hematocrit 30.2 % (36.0-47.0) Mean Corpuscular Volume 97 fL (79-100) Mean Corpuscular Hemoglobin 31 pg (25-35) Mean Corpuscular Hemoglobin Concent 32 g/dL (31-37) Red Cell Distribution Width 17.4 % (11.5-14.5) Platelet Count 412 x10^3/uL (140-400) Neutrophils (%) (Auto) 90 % (31-73) Lymphocytes (%) (Auto) 4 % (24-48) Monocytes (%) (Auto) 6 % (0-9) Eosinophils (%) (Auto) 0 % (0-3) Basophils (%) (Auto) 0 % (0-3) Neutrophils # (Auto) 29.5 x10^3uL (1.8-7.7) Lymphocytes # (Auto) 1.4 x10^3/uL (1.0-4.8) Monocytes # (Auto) 1.9 x10^3/uL (0.0-1.1) Eosinophils # (Auto) 0.1 x10^3/uL (0.0-0.7) Basophils # (Auto) 0.1 x10^3/uL (0.0-0.2) Segmented Neutrophils % 91 % (35-66) Band Neutrophils % 1 % (0-9) Lymphocytes % 6 % (24-48) Atypical Lymphocytes % (Manual) 1 % (0-0) Monocytes % 1 % (0-10) Platelet Estimate Increased (ADEQUATE) Giant Platelets Occ Polychromasia Slight Anisocytosis Slight Lactic Acid Level 1.3 mmol/L (0.4-2.0) Test 08/20/18 07:00 Lactic Acid Level 1.6 mmol/L (0.4-2.0) Troponin I Quantitative 0.202 ng/mL (0.000-0.055) Assessment/Plan Assessment/Plan IMP RECTAL BLEEDING ANEMIA DM II HTN DECONDITIONING CHRONIC CONSTIPATION LEUCOCYTOSIS PLAN ARANESP HD TTS GI EVAL CONSIDER GI EVALUATION WILL FOLLOW CHARLY ZAVALA MD Aug 20, 2018 11:22
[2018-08-20] MEDS: SEVELAMER CARBONATE 800 MG TABLET. PO SCH ×2 (12:00→17:48)
[2018-08-20] MEDS ORDERED: INSULIN LISPRO 100 UNIT/ML 3ML VIAL. SQ SCH (12:00)
--- NOTE | 2018-08-20 12:22 | PDOC2 ---
GI CONSULT Reason For Consult: Rectal bleeding HPI: HPI: 52 y/o female who we have seen in the past. She is drowsy making history challenging. Per RN, from rehab and sent for rectal bleeding - no bleeding here. She is a [facility] patient who is a full code and on dialysis. Reviewed chart - h/o constipation requiring disimpaction, not unusual for her to see blood. I asked if this instance was more significant - she says no. Has LE wounds, and RN reports she has a large wound on her bottom because she refuses to be turned at rehab. Past records: EGD 01/2018 (Dr. Fagan): non-erosive gastritis. Unclear if had previous colonoscopy. H/o suspected gastroparesis. Retained food on EGD in 2016. Reported GES years ago, was on Reglan which was stopped when she started dialysis. Currently on e- mycin. H/o reflux. On H2 bulmaro here - I believe PPI avoided in the past here per pharmacy w/ renal disease. Also reports h/o gastric ulcer - path from gastric biopsy in 2014 was negative for H. pylori. H/o C Diff. H/o constipation - we have started Miralax and Amitiza here in the past. Chronic pain on Percocet and morphine. Also on ASA and Brilinta. Chronic anemia. PMH: PMH: DM, ESRD, CAD, HTN, OH, HLD, anemia, hyperparathyroidism, PAD, osteomyelitis RUQ AV fistula, PD cath placement, RLE bypass/debridement/grafts, LBKA/revision, laminectomy, bladder suspension, partial hysterectomy FH: Family History: Cancer, CAD, DM Social History: Smoke: Quit ALCOHOL: none Drugs: None ROS: Difficult to obtain, see HPI. Vitals: Vitals: Vital Signs Date Time Temp Pulse Resp B/P (MAP) Pulse Ox O2 Delivery O2 Flow Rate FiO2 08/20/18 11:06 92 140/63 08/20/18 11:06 98.4 14 96 Room Air 98.4 Labs: Labs: Laboratory Tests Test 08/20/18 00:13 08/20/18 00:58 08/20/18 02:15 08/20/18 05:15 Stool Occult Blood Positive (NEG) Sodium Level 136 mmol/L (136-145) Potassium Level 3.8 mmol/L (3.5-5.1) Chloride Level 91 mmol/L (98-107) Carbon Dioxide Level 30 mmol/L (21-32) Anion Gap 15 (6-14) Blood Urea Nitrogen 47 mg/dL (7-20) Creatinine 4.7 mg/dL (0.6-1.0) Estimated GFR (Cockcroft-Gault) 9.8 BUN/Creatinine Ratio 10 (6-20) Glucose Level 155 mg/dL (70-99) Calcium Level 9.7 mg/dL (8.5-10.1) Magnesium Level 2.1 mg/dL (1.8-2.4) Total Bilirubin 0.8 mg/dL (0.2-1.0) Aspartate Amino Transf (AST/SGOT) 14 U/L (15-37) Alanine Aminotransferase (ALT/SGPT) 8 U/L (14-59) Alkaline Phosphatase 107 U/L (46-116) Total Protein 7.4 g/dL (6.4-8.2) Albumin 2.4 g/dL (3.4-5.0) Albumin/Globulin Ratio 0.5 (1.0-1.7) White Blood Count 33.0 x10^3/uL (4.0-11.0) Red Blood Count 3.13 x10^6/uL (3.50-5.40) Hemoglobin 9.6 g/dL (12.0-15.5) Hematocrit 30.2 % (36.0-47.0) Mean Corpuscular Volume 97 fL (79-100) Mean Corpuscular Hemoglobin 31 pg (25-35) Mean Corpuscular Hemoglobin Concent 32 g/dL (31-37) Red Cell Distribution Width 17.4 % (11.5-14.5) Platelet Count 412 x10^3/uL (140-400) Neutrophils (%) (Auto) 90 % (31-73) Lymphocytes (%) (Auto) 4 % (24-48) Monocytes (%) (Auto) 6 % (0-9) Eosinophils (%) (Auto) 0 % (0-3) Basophils (%) (Auto) 0 % (0-3) Neutrophils # (Auto) 29.5 x10^3uL (1.8-7.7) Lymphocytes # (Auto) 1.4 x10^3/uL (1.0-4.8) Monocytes # (Auto) 1.9 x10^3/uL (0.0-1.1) Eosinophils # (Auto) 0.1 x10^3/uL (0.0-0.7) Basophils # (Auto) 0.1 x10^3/uL (0.0-0.2) Segmented Neutrophils % 91 % (35-66) Band Neutrophils % 1 % (0-9) Lymphocytes % 6 % (24-48) Atypical Lymphocytes % (Manual) 1 % (0-0) Monocytes % 1 % (0-10) Platelet Estimate Increased (ADEQUATE) Giant Platelets Occ Polychromasia Slight Anisocytosis Slight Lactic Acid Level 1.3 mmol/L (0.4-2.0) Test 08/20/18 07:00 08/20/18 11:49 Lactic Acid Level 1.6 mmol/L (0.4-2.0) Troponin I Quantitative 0.202 ng/mL (0.000-0.055) Glucose (Fingerstick) 88 mg/dL (70-99) Allergies: Coded Allergies: Sulfa (Sulfonamide Antibiotics) (Verified Allergy, Severe, Anaphylaxis, 03/10/18) meropenem (Verified Allergy, Intermediate, Rash, 03/10/18) Tolerates ancef piperacillin (Verified Allergy, Intermediate, Rash, 03/10/18) Tolerates ancef strawberry (Verified Allergy, Intermediate, 03/10/18) tazobactam (Verified Allergy, Intermediate, 03/10/18) cefazolin (Verified Adverse Reaction, Intermediate, Itching, 03/10/18) Causes Vomiting fentanyl (Verified Adverse Reaction, Intermediate, Nausea and Vomiting, 02/05/18) Vomiting Medications: Current Medications Medications (Trade) Dose Ordered Sig/Martin Route PRN Reason Start Time Stop Time Status Last Admin Dose Admin Sodium Chloride 1,000 ml @ 1,000 mls/hr 1X ONCE IV 08/20/18 03:00 08/20/18 03:59 DC 08/20/18 04:28 Cefepime HCl (Maxipime) 2 gm 1X ONCE IVP 08/20/18 03:00 08/20/18 03:01 DC 08/20/18 04:28 Ondansetron HCl (Zofran) 4 mg PRN Q8HRS PRN IV NAUSEA/VOMITING 1ST CHOICE 08/20/18 05:00 08/21/18 04:59 08/20/18 07:27 Amiodarone HCl (Cordarone) 200 mg DAILY PO 08/20/18 10:00 08/20/18 10:59 Aspirin (Children'S Aspirin) 81 mg DAILY PO 08/20/18 10:00 08/20/18 10:59 Carbamazepine (TEGretol) 200 mg BID PO 08/20/18 10:00 08/20/18 11:05 Carvedilol (Coreg) 12.5 mg BIDWMEALS PO 08/20/18 10:00 08/20/18 11:06 Guaifenesin (Mucinex) 600 mg BID PO 08/20/18 10:00 08/20/18 10:59 Albuterol/ Ipratropium (Duoneb) 3 ml Q4HRS NEB 08/20/18 12:00 08/20/18 10:18 Morphine Sulfate (Ms Contin) 30 mg BID PO 08/20/18 10:00 08/20/18 10:58 Nystatin (Nystop) 1 erich BID TP 08/20/18 10:00 08/20/18 10:59 Ticagrelor (Brilinta) 90 mg BID PO 08/20/18 10:00 08/20/18 10:58 Calcitriol (Rocaltrol) 0.25 mcg DAILY PO 08/20/18 10:00 08/20/18 10:58 Diltiazem HCl (Cardizem 24hr Cd) 120 mg DAILY PO 08/20/18 10:00 08/20/18 11:06 Erythromycin (E-Mycin) 250 mg BID PO 08/20/18 10:00 08/20/18 11:05 Lidocaine (Lidoderm) 1 patch DAILY TD 08/20/18 10:00 08/20/18 10:58 Niacin (Slo-Niacin) 250 mg BID PO 08/20/18 10:00 08/20/18 11:05 Imaging: Imaging: CXR 08/20 IMPRESSION: Mild right basilar airspace disease. PE: GEN: looks ill HEENT: Atraumatic, PERRL LUNGS: CTAB HEART: RRR ABD: NABS, S/ND/NT, PD cath w/ bandage, some firmness/thickening bilateral inguinal areas EXTREMITY: LLE BKA w/ bandage, RLE wrapped, bandage on heel SKIN: right foot red and flaky NEURO/PSYCH: drowsy A/P: A/P: Rectal bleeding - prior to admission Leukocytosis, multiple wounds, elevated troponin H/o constipation - current treatment unclear GERD, suspected gastroparesis H/o C Diff CRC screen - unclear Chronic anemia ESRD on HD (and has PD cath), PAD, CAD, DM Chronic pain -- Returned to see w/ Dr. Fagan - suspects stercoral ulcer 2/2 constipation. Would be more aggressive w/ constipation treatment - can check KUB re: ?retained stool. 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 EDDY IGLESIAS Aug 20, 2018 12:22
[2018-08-20] MEDS ORDERED: hydrALAZINE 10 MG TABLET PO PRN (14:00)
[2018-08-20 15:05] VITALS: BP 127/52
--- NOTE | 2018-08-20 15:37 | NUR ---
Wound Care Wound care consult for multiple wounds. Pt has DFU to right heel, painted with Betadine and covered with abd and kerlix. Pt has stasis ulcers to right lower leg, covered with Xeroform, abd's and Kerlix. Pt has DTI with III to L BKA, applied Xeroform and foam. Pt has Stage III to left buttock, dressed with xeroform and foam. Pt has unstageable PU to Right buttock that is washburn, black and yellow with foul odor. Cleansed and applied Dakin's soaked gauze with ABD and Hypafix tape, change daily. Recommend surgical consult for right buttock. Recommend nystatin to R groin. WC will continue to follow for possible changes.
--- NOTE | 2018-08-20 16:04 | RAD ---
KUB without comparison for constipation. FINDINGS: There is scattered abdominal bowel gas in a nonobstructive pattern. A peritoneal dialysis catheter is seen. Extensive atherosclerotic calcifications are seen throughout the aortoiliac distributions as well as in the splenic, renal, and mesenteric arterial distributions. Also within the visualized femoral arteries. Right iliac artery stent is present. No pathologic calcifications. IMPRESSION: 1. Nonobstructive nonspecific bowel gas pattern. 2. Extensive multifocal vasculopathy including bulky calcified plaque within the aortoiliac arteries, femoral arteries, mesenteric arteries, and renal arteries. If there is possibility any of this patient's clinical presentation could be due to arterial insufficiency, consider further evaluation with CTA of the abdomen and pelvis. Electronically signed by: Robert Blandon MD (08/20/2018 4:01 PM) [id number]
[2018-08-20] MEDS: LUBIPROSTONE 8 MCG CAPSULE PO SCH (17:47)
[2018-08-20 19:10] VITALS: BP 115/46
[2018-08-20] MEDS: DARBEPOETIN ALFA 60 MCG/0.3 ML DISP.SYRIN. SQ SCH (20:25)
[2018-08-20] MEDS: POLYETHYLENE GLYCOL 3350 17 GM PACKET. PO SCH (20:26)
[2018-08-20] MEDS: INSULIN GLARGINE 300 UNITS/3 ML INSULN.PEN. SQ SCH (20:27)
[2018-08-20] MEDS: ATORVASTATIN CALCIUM 40 MG TABLET. PO SCH (20:27)
[2018-08-20] MEDS: FAMOTIDINE 20 MG TABLET. PO SCH (20:27)
[2018-08-20] MEDS: PATCH REMOVAL. MC SCH (20:28)
--- NOTE | 2018-08-20 20:36 | NUR ---
Nedra held d/t HS BG of 84 and pt stating she has "no appetite". -Making request for IV pain medication; informed pt that she has scheduled PO pain meds- will take PO meds now and states she is agreeable to waiting for IV pain medication after PO administration.
[2018-08-20] MEDS ORDERED: MELATONIN 9 MG PO SCH (21:00)
[2018-08-20 23:10] VITALS: BP 107/49
[2018-08-20] MEDS: HYDROmorphone 2 MG/ML VIAL IVP PRN (23:30)
[2018-08-21 03:10] VITALS: BP 116/47
[2018-08-21] MEDS: IPRATRPIUM/ALBUTEROL 0.5/2.5MG 3 ML NEBU. NEB SCH ×5 (03:35→20:27)
[2018-08-21] MEDS: HYDROmorphone 2 MG/ML VIAL IVP PRN (05:42)
[2018-08-21 07:10] VITALS: BP 106/44
[2018-08-21] MEDS: INSULIN LISPRO 300 UNITS/3 ML INSULN.PEN. SQ SCH ×6 (07:51→17:00)
[2018-08-21] MEDS: SEVELAMER CARBONATE 800 MG TABLET. PO SCH ×3 (08:00→17:12)
[2018-08-21] MEDS: LIDOCAINE (700MG/PATCH) PATCH. TD SCH (09:00)
[2018-08-21] MEDS: POLYETHYLENE GLYCOL 3350 17 GM PACKET. PO SCH ×2 (09:00→19:15)
[2018-08-21] MEDS ORDERED: IV NORMAL SALINE 1000ML BAG 1,000 ML IV PRN (09:50)
[2018-08-21] MEDS ORDERED: DIALYSIS PATIENT. MC PRN ×2 (10:00)
[2018-08-21] MEDS ORDERED: VANCOMYCIN 1.5 GM in IV NORMAL SALINE 500ML BAG 500 ML IV ONE (10:15)
--- NOTE | 2018-08-21 10:57 | PDOC ---
PROGRESS NOTES History of Present Illness History of Present Illness VTE Prophylaxis Ordered VTE Prophylaxis Devices: Contraindicated VTE Pharmacological Prophylaxi: Yes Assessment/Plan sepsis rectal bleeding opioid induced constipation, recent impaction, relistor? GI consult Dm1 CAD, ESRD chronic elevated troponin s/p BKA, poorly mobile acute on chronic pain, opioid dependence Guarded prognosis per my chart review admit vanc x 1 dose, 08/21 GPC ID/susceptibilities PENDING Repeat BLOOD CULT X 2 TODAY CBC in am ID CONSULT 46 MIN PT EXAM, CHART REVIEW, > 50% OF TIME SPENT WITH EXAM, CHART REVIEW, PT CARE COORDINATION Vitals Vitals Vital Signs Date Time Temp Pulse Resp B/P (MAP) Pulse Ox O2 Delivery O2 Flow Rate FiO2 08/21/18 08:00 Room Air 08/21/18 07:10 97.5 67 18 106/44 (64) 97 97.5 Physical Exam General: Alert, Cooperative, No acute distress Heart: Regular rate, Normal S1, Normal S2 Lungs: Clear, Other Abdomen: Normal bowel sounds, Soft, No tenderness, No hepatosplenomegaly Extremities: Other (DIFFUSE ATROPHY) Skin: Other (DIFFUSE LE ERYTHEMA AND STASIS DISCOLORATION) Labs LABS Laboratory Tests Test 08/20/18 11:49 08/20/18 12:00 08/20/18 17:04 08/20/18 20:24 Glucose (Fingerstick) 88 mg/dL (70-99) 86 mg/dL (70-99) 84 mg/dL (70-99) Troponin I Quantitative 0.225 ng/mL (0.000-0.055) Test 08/21/18 07:31 Glucose (Fingerstick) 90 mg/dL (70-99) Comment Review of Relevant I have reviewed the following items bert (where applicable) has been applied. Labs Laboratory Tests Test 08/20/18 00:13 08/20/18 00:58 08/20/18 02:15 08/20/18 05:15 Stool Occult Blood Positive (NEG) Sodium Level 136 mmol/L (136-145) Potassium Level 3.8 mmol/L (3.5-5.1) Chloride Level 91 mmol/L (98-107) Carbon Dioxide Level 30 mmol/L (21-32) Anion Gap 15 (6-14) Blood Urea Nitrogen 47 mg/dL (7-20) Creatinine 4.7 mg/dL (0.6-1.0) Estimated GFR (Cockcroft-Gault) 9.8 BUN/Creatinine Ratio 10 (6-20) Glucose Level 155 mg/dL (70-99) Calcium Level 9.7 mg/dL (8.5-10.1) Magnesium Level 2.1 mg/dL (1.8-2.4) Total Bilirubin 0.8 mg/dL (0.2-1.0) Aspartate Amino Transf (AST/SGOT) 14 U/L (15-37) Alanine Aminotransferase (ALT/SGPT) 8 U/L (14-59) Alkaline Phosphatase 107 U/L (46-116) Total Protein 7.4 g/dL (6.4-8.2) Albumin 2.4 g/dL (3.4-5.0) Albumin/Globulin Ratio 0.5 (1.0-1.7) White Blood Count 33.0 x10^3/uL (4.0-11.0) Red Blood Count 3.13 x10^6/uL (3.50-5.40) Hemoglobin 9.6 g/dL (12.0-15.5) Hematocrit 30.2 % (36.0-47.0) Mean Corpuscular Volume 97 fL (79-100) Mean Corpuscular Hemoglobin 31 pg (25-35) Mean Corpuscular Hemoglobin Concent 32 g/dL (31-37) Red Cell Distribution Width 17.4 % (11.5-14.5) Platelet Count 412 x10^3/uL (140-400) Neutrophils (%) (Auto) 90 % (31-73) Lymphocytes (%) (Auto) 4 % (24-48) Monocytes (%) (Auto) 6 % (0-9) Eosinophils (%) (Auto) 0 % (0-3) Basophils (%) (Auto) 0 % (0-3) Neutrophils # (Auto) 29.5 x10^3uL (1.8-7.7) Lymphocytes # (Auto) 1.4 x10^3/uL (1.0-4.8) Monocytes # (Auto) 1.9 x10^3/uL (0.0-1.1) Eosinophils # (Auto) 0.1 x10^3/uL (0.0-0.7) Basophils # (Auto) 0.1 x10^3/uL (0.0-0.2) Segmented Neutrophils % 91 % (35-66) Band Neutrophils % 1 % (0-9) Lymphocytes % 6 % (24-48) Atypical Lymphocytes % (Manual) 1 % (0-0) Monocytes % 1 % (0-10) Platelet Estimate Increased (ADEQUATE) Giant Platelets Occ Polychromasia Slight Anisocytosis Slight Lactic Acid Level 1.3 mmol/L (0.4-2.0) Test 08/20/18 07:00 08/20/18 09:25 08/20/18 11:49 08/20/18 12:00 Lactic Acid Level 1.6 mmol/L (0.4-2.0) Troponin I Quantitative 0.202 ng/mL (0.000-0.055) 0.225 ng/mL (0.000-0.055) Nasal Screen MRSA (PCR) Negative (Negative) Glucose (Fingerstick) 88 mg/dL (70-99) Test 08/20/18 17:04 08/20/18 20:24 08/21/18 07:31 Glucose (Fingerstick) 86 mg/dL (70-99) 84 mg/dL (70-99) 90 mg/dL (70-99) Laboratory Tests Test 08/20/18 11:49 08/20/18 12:00 08/20/18 17:04 08/20/18 20:24 Glucose (Fingerstick) 88 mg/dL (70-99) 86 mg/dL (70-99) 84 mg/dL (70-99) Troponin I Quantitative 0.225 ng/mL (0.000-0.055) Test 08/21/18 07:31 Glucose (Fingerstick) 90 mg/dL (70-99) Microbiology 08/20/18 Blood Culture - Preliminary, Resulted NO GROWTH AFTER 1 DAY Medications Current Medications Sodium Chloride 1,000 ml @ 1,000 mls/hr 1X ONCE IV Last administered on 08/20/18at 04:28; Start 08/20/18 at 03:00; Stop 08/20/18 at 03:59; Status DC Cefepime HCl (Maxipime) 2 gm 1X ONCE IVP Last administered on 08/20/18at 04:28; Start 08/20/18 at 03:00; Stop 08/20/18 at 03:01; Status DC Ondansetron HCl (Zofran) 4 mg PRN Q8HRS PRN IV NAUSEA/VOMITING 1ST CHOICE Last administered on 08/20/18at 07:27; Start 08/20/18 at 05:00; Stop 08/21/18 at 04:59; Status DC Insulin Human Lispro (HumaLOG) 0-5 UNITS TIDWMEALS SQ ; Start 08/20/18 at 08:00 Dextrose (Dextrose 50%-Water Syringe) 12.5 gm PRN Q15MIN PRN IV SEE COMMENTS; Start 08/20/18 at 05:00 Acetaminophen (Tylenol) 650 mg PRN Q6HRS PRN PO MILD PAIN / TEMP; Start 08/20/18 at 09:30 Amiodarone HCl (Cordarone) 200 mg DAILY PO Last administered on 08/20/18at 10:59; Start 08/20/18 at 10:00 Aspirin (Children'S Aspirin) 81 mg DAILY PO Last administered on 08/20/18at 10:59; Start 08/20/18 at 10:00 Carbamazepine (TEGretol) 200 mg BID PO Last administered on 08/20/18 20:26; Start 08/20/18 at 10:00 Carvedilol (Coreg) 12.5 mg BIDWMEALS PO Last administered on 08/20/18at 17:48; Start 08/20/18 at 10:00 Docusate Sodium (Colace) 100 mg PRN Q8HRS PRN PO CONSTIPATION; Start 08/20/18 at 09:30 Famotidine (Pepcid) 20 mg HS PO Last administered on 08/20/18at 20:27; Start 08/20/18 at 21:00 Guaifenesin (Mucinex) 600 mg BID PO Last administered on 08/20/18at 20:26; Start 08/20/18 at 10:00 Insulin Glargine (Lantus) 15 units QHS SQ ; Start 08/20/18 at 21:00 Insulin Human Lispro (HumaLOG) 5 units TIDWMEALS SQ ; Start 08/20/18 at 12:00 Insulin Human Lispro (HumaLOG VIAL) 5 unit TIDWMEALS SQ ; Start 08/20/18 at 12:00; Status UNV Albuterol/ Ipratropium (Duoneb) 3 ml Q4HRS NEB Last administered on 08/21/18 07:45; Start 08/20/18 at 12:00 Albuterol Sulfate (Ventolin Neb Soln) 2.5 mg PRN Q4HRS PRN NEB SHORTNESS OF BREATH; Start 08/20/18 at 09:45 Morphine Sulfate (Ms Contin) 30 mg BID PO Last administered on 08/20/18 20:27; Start 08/20/18 at 10:00 Nystatin (Nystop) 1 susanna BID TP Last administered on 08/20/18 20:36; Start 07/27 10/13 at 10:00 Oxycodone/ Acetaminophen (Percocet 10/325) 1 tab PRN Q4HRS PRN PO MODERATE - SEVERE PAIN; Start 08/20/18 at 12:00 Prochlorperazine Maleate (Compazine) 10 mg PRN Q6HRS PRN PO NAUSEA/VOMITING; Start 08/20/18 at 09:30 Sevelamer Carbonate (Renvela) 1,600 mg TIDWMEALS PO Last administered on 08/20/18 17:48; Start 08/20/18 at 12:00 Ticagrelor (Brilinta) 90 mg BID PO Last administered on 08/20/18 20:26; Start 08/20/18 at 10:00 Atorvastatin Calcium (Lipitor) 80 mg QHS PO Last administered on 08/20/18 20:27; Start 08/20/18 at 21:00 Calcitriol (Rocaltrol) 0.25 mcg DAILY PO Last administered on 08/20/18 10:58; Start 08/20/18 at 10:00 Diltiazem HCl (Cardizem 24hr Cd) 120 mg DAILY PO Last administered on 08/20/18 11:06; Start 08/20/18 at 10:00 Erythromycin (E-Mycin) 250 mg BID PO Last administered on 08/20/18 20:26; Start 08/20/18 at 10:00 Hydralazine HCl (Apresoline) 10 mg PRN TID PRN PO ELEVATED BP; Start 08/20/18 at 14:00 Lidocaine (Lidoderm) 1 patch DAILY TD Last administered on 08/20/18 10:58; Start 08/20/18 at 10:00 Non-Formulary Medication (Melatonin ) 9 mg QHS PO ; Start 08/20/18 at 21:00; Status UNV Niacin (Slo-Niacin) 250 mg BID PO Last administered on 08/20/18at 20:25; Start 08/20/18 at 10:00 Ondansetron HCl (Zofran Odt) 4 mg PRN Q6HRS PRN PO NAUSEA/VOMITING, 1ST CHOICE; Start 08/20/18 at 09:45 Polyethylene Glycol (miraLAX PACKET) 17 gm PRN Q8HRS PRN PO CONSTIPATION; Start 08/20/18 at 09:42; Stop 08/20/18 at 12:24; Status DC Sodium Chloride ([place] Saline Nasal) 1 susanna PRN BID PRN NS NASAL CONGESTION; Start 08/20/18 at 10:00 Hydromorphone HCl (Dilaudid) 1 mg PRN Q4HRS PRN IVP PAIN Last administered on 08/21/18at 05:42; Start 08/20/18 at 09:30 Miscellaneous (Lidoderm Patch Removal) 1 ea QHS MC Last administered on 08/20/18at 20:28; Start 08/20/18 at 21:00 Darbepoetin Mauricio (Aranesp) 60 mcg Fr SQ Last administered on 08/20/18at 20:25; Start 08/20/18 at 21:00 Polyethylene Glycol (miraLAX PACKET) 17 gm BID PO ; Start 08/20/18 at 21:00 Lubiprostone (Amitiza) 24 mcg BIDWMEALS PO Last administered on 08/20/18at 17:47; Start 08/20/18 at 17:00 Sodium Chloride 1,000 ml @ 1,000 mls/hr Q1H PRN IV hypotension; Start 08/21/18 at 09:50; Stop 08/21/18 at 15:49 Info (PHARMACY MONITORING -- do not chart) 1 each PRN DAILY PRN MC SEE COMMENTS; Start 08/21/18 at 10:00; Status UNV Info (PHARMACY MONITORING -- do not chart) 1 each PRN DAILY PRN MC SEE COMMENTS; Start 08/21/18 at 10:00 Vancomycin HCl 500 mg/Sodium Chloride 100 ml @ 100 mls/hr 1X ONCE IV ; Start 08/21/18 at 12:00; Stop 08/21/18 at 12:59; Status UNV Vancomycin HCl 1.5 gm/Sodium Chloride 500 ml @ 250 mls/hr 1X ONCE IV ; Start 08/21/18 at 10:15; Stop 08/21/18 at 12:14 Active Scripts Active Nystop (Nystatin) 60 Gm Powder 1 Susanna TP BID MDD 1 Morphine Sulfate Er (Morphine Sulfate) 30 Mg Tablet.er 1 Tab PO BID MDD 1 Tramadol Hcl 50 Mg Tablet 50 Mg PO Q4HRS PRN MDD 1 Brilinta (Ticagrelor) 90 Mg Tablet 90 Mg PO BID 30 Days Reported Zofran (Ondansetron Hcl) 4 Mg Tablet 1 Tab PO Q6HRS Lidocaine 1 Each Adh..patch 1 Each TP DAILY Duoneb 0.5-3(2.5) Mg/3 Ml (Albuterol/Ipratropium) 3 Ml Ampul.neb 3 Ml NEB Q4HRS Uriel-Tab (Erythromycin Base) 250 Mg Tablet.dr 250 Mg PO BID Diltiazem 24HR Cd (Diltiazem Hcl) 120 Mg Cap.er.24h 1 Cap PO DAILY Carvedilol (Carvedilol) 12.5 Mg Tablet 12.5 Mg PO BIDWMEALS Tylenol (Acetaminophen) 325 Mg Tablet 2 Tab PO PRN Q6HRS Oxycodone-Acetaminophen 10-325 (Oxycodone Hcl/Acetaminophen) 1 Each Tablet 1 Tab PO Q4HRS Renvela (Sevelamer Carbonate) 800 Mg Tablet 2 Tab PO TID Melatonin 3 Mg Tablet 9 Mg PO QHS Lantus Solostar (Insulin Glargine,Hum.rec.anlog) 100 Unit/1 Ml Insuln.pen 15 Unit SQ QHS Duoneb 0.5-3(2.5) Mg/3 Ml (Albuterol/Ipratropium) 3 Ml Ampul.neb 3 Ml NEB QID PRN Humalog (Insulin Lispro) 100 Unit/1 Ml Vial 0 SQ TID Humalog (Insulin Lispro) 100 Unit/1 Ml Vial 5 Unit SQ TIDWMEALS Guaifenesin 600 Mg Tablet.er 600 Mg PO BID [place] Saline (Sodium Chloride) 50 Ml Dickerson 1 Dickerson NS BID PRN Acetaminophen 500 Mg Tablet 650 Mg PO Q6HRS PRN Aspirin 81 Mg Tab.chew 1 Tab PO DAILY Calcitriol 0.25 Mcg Capsule 1 Cap PO DAILY Pepcid (Famotidine) 20 Mg Tablet 20 Mg PO HS Niacin 250 Mg Tablet 250 Mg PO BID Miralax (Polyethylene Glycol 3350) 17 Gm Powd.pack 1 Packet PO Q 8HRS PRN Hydralazine Hcl 10 Mg Tablet 1 Tab PO PRN TID PRN Ferrous Sulfate 325 Mg Tablet 1 Tab PO DAILY Diphenhydramine Hcl 50 Mg Capsule 1 Cap PO PRN Q8HRS PRN Prochlorperazine Maleate 10 Mg Tablet 1 Tab PO PRN Q6HRS PRN Tegretol (Carbamazepine) 200 Mg Tablet 1 Tab PO BID Amiodarone Hcl 200 Mg Tablet 1 Tab PO DAILY Lipitor (Atorvastatin Calcium) 80 Mg Tablet 80 Mg PO HS Docusate Sodium 100 Mg Capsule 1 Cap PO Q8HRS PRN Vitals/I & O Vital Sign - Last 24 Hours 08/20/18 08/20/18 08/20/18 08/20/18 10:58 10:59 11:06 11:06 Temp 98.4 98.4 Pulse 92 86 92 Resp 17 14 B/P (MAP) 140/63 144/60 (88) 140/63 Pulse Ox 96 O2 Delivery Room Air Room Air 08/20/18 08/20/18 08/20/18 08/20/18 11:06 14:58 15:04 15:05 Temp 97.7 97.7 Pulse 92 72 Resp 18 14 B/P (MAP) 140/63 127/52 (77) Pulse Ox 92 O2 Delivery Room Air Room Air 08/20/18 08/20/18 08/20/18 08/20/18 17:48 19:10 20:00 20:01 Temp 99.1 99.1 Pulse 72 71 Resp 18 B/P (MAP) 127/52 115/46 (69) Pulse Ox 97 O2 Delivery Room Air Room Air Room Air 08/20/18 08/20/18 08/20/18 08/20/18 20:27 23:10 23:30 23:57 Temp 98.1 98.1 Pulse 68 Resp 18 B/P (MAP) 107/49 (68) Pulse Ox 94 O2 Delivery Room Air Room Air Room Air Room Air 08/21/18 08/21/18 08/21/18 08/21/18 00:04 03:10 03:35 05:42 Temp 98.2 98.2 Pulse 68 Resp 18 B/P (MAP) 116/47 (70) Pulse Ox 98 O2 Delivery Room Air Room Air Room Air Room Air 08/21/18 08/21/18 08/21/18 08/21/18 06:17 07:10 07:45 08:00 Temp 97.5 97.5 Pulse 67 Resp 18 B/P (MAP) 106/44 (64) Pulse Ox 97 O2 Delivery Room Air Room Air Room Air Room Air Intake and Output 08/20/18 08/20/18 08/21/18 14:59 22:59 06:59 Intake Total 580 ml 50 ml 0 ml Balance 580 ml 50 ml 0 ml Nutrition Consultation Dietary Evaluation: Recommendations by RD: Increase Calorie Intake, Protein supplementation Comments: continue to encourage intake REC mvi vit c for wounds offer nepro, ifeoma supplements Expected Outcomes/Goals: to meet > 50% est nutr needs Interpretation of weight loss: >10% in 6 months Malnutrition Findings: Body Fat Depletion (Non Severe: Mild Depletion Weight Status: Underweight TYREE RAMIREZ MD Aug 21, 2018 10:57
--- NOTE | 2018-08-21 11:04 | PDOC ---
Dialysis Progress Note Dialysis Note Dialysis Note Seen on Hemodialysis, tolerating treatment Okay so far Vitals on Hemodialysis: 126/54 75 afeb General Appearance: Somewhat drowsy Neck: No JVD or JVP Chest: CTA Ramiro Heart: S1 S2 Abdomen - Soft NTND Extremities - + Edema ESRD: Dialysis as below F 180 NR 3.0 Hrs 3 K 2.5 Ca 140 Na 35 HC03 Qb 350 + Qd 500+ Heparin 0 Units Uf 2 Kgs or to dry weight as tolerated May give 25-50 gms of 25% Albumin if needed to maintain Hemodynamic stability Treatment plan reviewed and discussed with lion trainer Vitals Vital Signs Vital Signs Date Time Temp Pulse Resp B/P (MAP) Pulse Ox O2 Delivery O2 Flow Rate FiO2 08/21/18 08:00 Room Air 08/21/18 07:10 97.5 67 18 106/44 (64) 97 97.5 Labs Last Labs Laboratory Tests Test 08/20/18 00:13 08/20/18 00:58 08/20/18 02:15 08/20/18 05:15 Stool Occult Blood Positive (NEG) Sodium Level 136 mmol/L (136-145) Potassium Level 3.8 mmol/L (3.5-5.1) Chloride Level 91 mmol/L (98-107) Carbon Dioxide Level 30 mmol/L (21-32) Anion Gap 15 (6-14) Blood Urea Nitrogen 47 mg/dL (7-20) Creatinine 4.7 mg/dL (0.6-1.0) Estimated GFR (Cockcroft-Gault) 9.8 BUN/Creatinine Ratio 10 (6-20) Glucose Level 155 mg/dL (70-99) Calcium Level 9.7 mg/dL (8.5-10.1) Magnesium Level 2.1 mg/dL (1.8-2.4) Total Bilirubin 0.8 mg/dL (0.2-1.0) Aspartate Amino Transf (AST/SGOT) 14 U/L (15-37) Alanine Aminotransferase (ALT/SGPT) 8 U/L (14-59) Alkaline Phosphatase 107 U/L (46-116) Total Protein 7.4 g/dL (6.4-8.2) Albumin 2.4 g/dL (3.4-5.0) Albumin/Globulin Ratio 0.5 (1.0-1.7) White Blood Count 33.0 x10^3/uL (4.0-11.0) Red Blood Count 3.13 x10^6/uL (3.50-5.40) Hemoglobin 9.6 g/dL (12.0-15.5) Hematocrit 30.2 % (36.0-47.0) Mean Corpuscular Volume 97 fL (79-100) Mean Corpuscular Hemoglobin 31 pg (25-35) Mean Corpuscular Hemoglobin Concent 32 g/dL (31-37) Red Cell Distribution Width 17.4 % (11.5-14.5) Platelet Count 412 x10^3/uL (140-400) Neutrophils (%) (Auto) 90 % (31-73) Lymphocytes (%) (Auto) 4 % (24-48) Monocytes (%) (Auto) 6 % (0-9) Eosinophils (%) (Auto) 0 % (0-3) Basophils (%) (Auto) 0 % (0-3) Neutrophils # (Auto) 29.5 x10^3uL (1.8-7.7) Lymphocytes # (Auto) 1.4 x10^3/uL (1.0-4.8) Monocytes # (Auto) 1.9 x10^3/uL (0.0-1.1) Eosinophils # (Auto) 0.1 x10^3/uL (0.0-0.7) Basophils # (Auto) 0.1 x10^3/uL (0.0-0.2) Segmented Neutrophils % 91 % (35-66) Band Neutrophils % 1 % (0-9) Lymphocytes % 6 % (24-48) Atypical Lymphocytes % (Manual) 1 % (0-0) Monocytes % 1 % (0-10) Platelet Estimate Increased (ADEQUATE) Giant Platelets Occ Polychromasia Slight Anisocytosis Slight Lactic Acid Level 1.3 mmol/L (0.4-2.0) Test 08/20/18 07:00 08/20/18 09:25 08/20/18 11:49 08/20/18 12:00 Lactic Acid Level 1.6 mmol/L (0.4-2.0) Troponin I Quantitative 0.202 ng/mL (0.000-0.055) 0.225 ng/mL (0.000-0.055) Nasal Screen MRSA (PCR) Negative (Negative) Glucose (Fingerstick) 88 mg/dL (70-99) Test 08/20/18 17:04 08/20/18 20:24 08/21/18 07:31 Glucose (Fingerstick) 86 mg/dL (70-99) 84 mg/dL (70-99) 90 mg/dL (70-99) Laboratory Tests Test 08/20/18 11:49 08/20/18 12:00 08/20/18 17:04 08/20/18 20:24 Glucose (Fingerstick) 88 mg/dL (70-99) 86 mg/dL (70-99) 84 mg/dL (70-99) Troponin I Quantitative 0.225 ng/mL (0.000-0.055) Test 08/21/18 07:31 Glucose (Fingerstick) 90 mg/dL (70-99) BEAR LÓPEZ MD Aug 21, 2018 11:04
[2018-08-21 11:31] VITALS: BP 147/56
[2018-08-21] MEDS ORDERED: VANCOMYCIN 500 MG in IV NORMAL SALINE 100ML 100 ML IV ONE (12:00)
[2018-08-21] MEDS: CALCITRIOL 0.25 MCG CAPSULE. PO SCH (12:33)
[2018-08-21] MEDS: NIACIN ER 250 MG TABLET.ER PO SCH ×2 (12:33→20:46)
[2018-08-21] MEDS: LUBIPROSTONE 8 MCG CAPSULE PO SCH ×2 (12:34→17:12)
[2018-08-21] MEDS: MORPHINE ER 15 MG TABLET.ER PO SCH ×2 (12:34→20:47)
[2018-08-21] MEDS: ERYTHROMYCIN BASE 250 MG TABLET PO SCH ×2 (12:34→20:47)
[2018-08-21] MEDS: AMIODARONE HCL 200 MG TABLET. PO SCH (12:35)
[2018-08-21] MEDS: ASPIRIN CHEWABLE 81 MG TABLET. PO SCH (12:36)
[2018-08-21] MEDS: TICAGRELOR 90 MG TABLET. PO SCH ×2 (12:36→20:46)
[2018-08-21] MEDS: carBAMazepine 200 MG TABLET PO SCH ×2 (12:36→20:47)
[2018-08-21] MEDS: CARVEDILOL 12.5 MG TABLET. PO SCH ×2 (12:37→17:11)
[2018-08-21 12:56] LABS: BASO % 0 % (0-3); EOS # 0.3 x10^3/uL (0.0-0.7); EOS % 1 % (0-3); HEMATOCRIT 28.1 % (36.0-47.0); HEMOGLOBIN 8.9 g/dL (12.0-15.5); LYMPH # 0.5 x10^3/uL (1.0-4.8); LYMPH % 1 % (24-48); MEAN CORPUSCULAR HEMOGLOBIN 31 pg (25-35); MEAN CORPUSCULAR HGB CONC 32 g/dL (31-37); MEAN CORPUSCULAR VOLUME 98 fL (79-100); MONO # 1.8 x10^3/uL (0.0-1.1); MONO % 4 % (0-9); NEUT # 40.1 x10^3uL (1.8-7.7); NEUT % 94 % (31-73); PLATELET COUNT 355 x10^3/uL (140-400); RED BLOOD COUNT 2.88 x10^6/uL (3.50-5.40); RED CELL DISTRIBUTION WIDTH 17.6 % (11.5-14.5)
[2018-08-21 12:57] LABS: ALBUMIN 2.2 g/dL (3.4-5.0); ALBUMIN/GLOBULIN RATIO 0.5 (1.0-1.7); CALCIUM 9.2 mg/dL (8.5-10.1); CREATININE 2.7 mg/dL (0.6-1.0); GFR 18.5; POTASSIUM 3.3 mmol/L (3.5-5.1); TOTAL BILIRUBIN 0.8 mg/dL (0.2-1.0); TOTAL PROTEIN 6.8 g/dL (6.4-8.2)
[2018-08-21] MEDS: NYSTATIN TOPICAL POWDER 15GM BOTTLE. TP SCH ×2 (13:02→20:46)
[2018-08-21 13:06] LABS: WHITE BLOOD COUNT 42.8 x10^3/uL (4.0-11.0)
[2018-08-21 13:45] LABS: % BANDS 16 % (0-9); % EOS 1 % (0-5); % MONOS 4 % (0-10); % SEGS 79 % (35-66); ANISOCYTOSIS SLIGHT; PLT ESTIMATE ADEQUATE (ADEQUATE); POLYCHROMASIA SLIGHT
--- NOTE | 2018-08-21 14:09 | PDOC ---
Infectious Disease Note Vital Sign Vital Signs Vital Signs Date Time Temp Pulse Resp B/P (MAP) Pulse Ox O2 Delivery O2 Flow Rate FiO2 08/21/18 12:37 85 106/44 08/21/18 12:34 95 Room Air 08/21/18 11:31 97.4 20 97.4 Labs Lab Laboratory Tests Test 08/20/18 17:04 08/20/18 20:24 08/21/18 07:31 08/21/18 11:59 Glucose (Fingerstick) 86 mg/dL (70-99) 84 mg/dL (70-99) 90 mg/dL (70-99) 88 mg/dL (70-99) Test 08/21/18 12:17 White Blood Count 42.8 x10^3/uL (4.0-11.0) Red Blood Count 2.88 x10^6/uL (3.50-5.40) Hemoglobin 8.9 g/dL (12.0-15.5) Hematocrit 28.1 % (36.0-47.0) Mean Corpuscular Volume 98 fL (79-100) Mean Corpuscular Hemoglobin 31 pg (25-35) Mean Corpuscular Hemoglobin Concent 32 g/dL (31-37) Red Cell Distribution Width 17.6 % (11.5-14.5) Platelet Count 355 x10^3/uL (140-400) Neutrophils (%) (Auto) 94 % (31-73) Lymphocytes (%) (Auto) 1 % (24-48) Monocytes (%) (Auto) 4 % (0-9) Eosinophils (%) (Auto) 1 % (0-3) Basophils (%) (Auto) 0 % (0-3) Neutrophils # (Auto) 40.1 x10^3uL (1.8-7.7) Lymphocytes # (Auto) 0.5 x10^3/uL (1.0-4.8) Monocytes # (Auto) 1.8 x10^3/uL (0.0-1.1) Eosinophils # (Auto) 0.3 x10^3/uL (0.0-0.7) Basophils # (Auto) 0.0 x10^3/uL (0.0-0.2) Segmented Neutrophils % 79 % (35-66) Band Neutrophils % 16 % (0-9) Monocytes % 4 % (0-10) Eosinophils % 1 % (0-5) Platelet Estimate Adequate (ADEQUATE) Polychromasia Slight Anisocytosis Slight Sodium Level 138 mmol/L (136-145) Potassium Level 3.3 mmol/L (3.5-5.1) Chloride Level 95 mmol/L (98-107) Carbon Dioxide Level 27 mmol/L (21-32) Anion Gap 16 (6-14) Blood Urea Nitrogen 20 mg/dL (7-20) Creatinine 2.7 mg/dL (0.6-1.0) Estimated GFR (Cockcroft-Gault) 18.5 BUN/Creatinine Ratio 7 (6-20) Glucose Level 95 mg/dL (70-99) Lactic Acid Level 1.2 mmol/L (0.4-2.0) Calcium Level 9.2 mg/dL (8.5-10.1) Total Bilirubin 0.8 mg/dL (0.2-1.0) Aspartate Amino Transf (AST/SGOT) 19 U/L (15-37) Alanine Aminotransferase (ALT/SGPT) 9 U/L (14-59) Alkaline Phosphatase 111 U/L (46-116) Total Protein 6.8 g/dL (6.4-8.2) Albumin 2.2 g/dL (3.4-5.0) Albumin/Globulin Ratio 0.5 (1.0-1.7) Micro BLOOD CULTURE Final GRAM POSITIVE COCCI IN CLUSTERS SEEN IN 2 OF 4 BOTTLES; 2 SETS WERE DRAWN; Objective Assessment GPC bacteremia (POA) Leukocytosis Multiple wounds Multiple abx allergies h/o c. diff Rectal bleeding and constipation CKD/HD via AV fistula Diabetes Plan Plan of Care vanc x 1 dose, 08/21 Await GPC ID/susceptibilities Repeat BC CBC in [facility] care team following Thank you Attending Co-Sign The patient was seen and interviewed as well as examined at the bedside. The chart was reviewed. The case was discussed. Agree with the plan of care. KYLEIGH QUEEN APRN Aug 21, 2018 14:09 DANYD LÓPEZ MD Aug 21, 2018 14:35
[2018-08-21 15:00] VITALS: BP 126/53
--- NOTE | 2018-08-21 17:25 | PDOC2 ---
CONSULT Date of Consult Date of Consult DATE: 08/21/18 TIME: 17:19 Reason for Consult Reason for Consult: decub ulcers Referring Physician Referring Physician: Rae Identification/Chief Complaint Chief Complaint none Source Source: Chart review, Patient History of Present Illness Reason for Visit: 52 yo F with multiple medical issues, transferred [place] regarding rectal bleeding. Pt with hx of constipation and disimpaction. Pt seen in hospital room and appears sleepy. Does not actively participate in interview. Past Medical History Cardiovascular: AFIB, CAD, CHF, HTN, AK, Hyperlipidemia, Other Pulmonary: Asthma, Bronchitis, COPD, Pneumonia, Other CENTRAL NERVOUS SYSTEM: Periperal neuropathy GI: Irritable bowel disease, Peptic Ulcer disease, Other Heme/Onc: Anemia NOS Hepatobiliary: No pertinent hx Psych: Anxiety, Depression Musculoskeletal: Osteoarthritis Rheumatologic: Fibromyalgia Infectious disease: Other Renal/: Chronic renal failure Endocrine: Diabetes, Hyperparathyroidism Past Surgical History Past Surgical History: CABG, Cataract Removal, Hysterectomy, Other Family History Family History: Diabetes, Hypertension Social History Quit ALCOHOL: none Drugs: None Lives: [facility] Current Medications Current Medications Current Medications Sodium Chloride 1,000 ml @ 1,000 mls/hr 1X ONCE IV Last administered on 08/20/18at 04:28; Start 08/20/18 at 03:00; Stop 08/20/18 at 03:59; Status DC Cefepime HCl (Maxipime) 2 gm 1X ONCE IVP Last administered on 08/20/18at 04:28; Start 08/20/18 at 03:00; Stop 08/20/18 at 03:01; Status DC Ondansetron HCl (Zofran) 4 mg PRN Q8HRS PRN IV NAUSEA/VOMITING 1ST CHOICE Last administered on 08/20/18at 07:27; Start 08/20/18 at 05:00; Stop 08/21/18 at 04:59; Status DC Insulin Human Lispro (HumaLOG) 0-5 UNITS TIDWMEALS SQ ; Start 08/20/18 at 08:00 Dextrose (Dextrose 50%-Water Syringe) 12.5 gm PRN Q15MIN PRN IV SEE COMMENTS; Start 08/20/18 at 05:00 Acetaminophen (Tylenol) 650 mg PRN Q6HRS PRN PO MILD PAIN / TEMP; Start 08/20/18 at 09:30 Amiodarone HCl (Cordarone) 200 mg DAILY PO Last administered on 08/21/18 12:35; Start 08/20/18 at 10:00 Aspirin (Children'S Aspirin) 81 mg DAILY PO Last administered on 08/21/18 12:36; Start 08/20/18 at 10:00 Carbamazepine (TEGretol) 200 mg BID PO Last administered on 08/21/18 12:36; Start 08/20/18 at 10:00 Carvedilol (Coreg) 12.5 mg BIDWMEALS PO Last administered on 08/21/18 17:11; Start 08/20/18 at 10:00 Docusate Sodium (Colace) 100 mg PRN Q8HRS PRN PO CONSTIPATION; Start 08/20/18 at 09:30 Famotidine (Pepcid) 20 mg HS PO Last administered on 08/20/18 20:27; Start 08/20/18 at 21:00 Guaifenesin (Mucinex) 600 mg BID PO Last administered on 08/21/18 12:36; Start 08/20/18 at 10:00 Insulin Glargine (Lantus) 15 units QHS SQ ; Start 08/20/18 at 21:00 Insulin Human Lispro (HumaLOG) 5 units TIDWMEALS SQ ; Start 08/20/18 at 12:00 Insulin Human Lispro (HumaLOG VIAL) 5 unit TIDWMEALS SQ ; Start 08/20/18 at 12:00; Status UNV Albuterol/ Ipratropium (Duoneb) 3 ml Q4HRS NEB Last administered on 08/21/18 15:26; Start 08/20/18 at 12:00 Albuterol Sulfate (Ventolin Neb Soln) 2.5 mg PRN Q4HRS PRN NEB SHORTNESS OF BREATH; Start 08/20/18 at 09:45 Morphine Sulfate (Ms Contin) 30 mg BID PO Last administered on 08/21/18 12:34; Start 08/20/18 at 10:00 Nystatin (Nystop) 1 susanna BID TP Last administered on 08/21/18 13:02; Start 08/20/18 at 10:00 Oxycodone/ Acetaminophen (Percocet 10/325) 1 tab PRN Q4HRS PRN PO MODERATE - SEVERE PAIN; Start 08/20/18 at 12:00 Prochlorperazine Maleate (Compazine) 10 mg PRN Q6HRS PRN PO NAUSEA/VOMITING; Start 08/20/18 at 09:30 Sevelamer Carbonate (Renvela) 1,600 mg TIDWMEALS PO Last administered on 08/21/18 17:12; Start 08/20/18 at 12:00 Ticagrelor (Brilinta) 90 mg BID PO Last administered on 08/21/18 12:36; Start 08/20/18 at 10:00 Atorvastatin Calcium (Lipitor) 80 mg QHS PO Last administered on 08/20/18at 20:27; Start 08/20/18 at 21:00 Calcitriol (Rocaltrol) 0.25 mcg DAILY PO Last administered on 08/21/18 12:33; Start 08/20/18 at 10:00 Diltiazem HCl (Cardizem 24hr Cd) 120 mg DAILY PO Last administered on 08/21/18 12:36; Start 08/20/18 at 10:00 Erythromycin (E-Mycin) 250 mg BID PO Last administered on 08/21/18 12:34; Start 08/20/18 at 10:00 Hydralazine HCl (Apresoline) 10 mg PRN TID PRN PO ELEVATED BP; Start 08/20/18 at 14:00 Lidocaine (Lidoderm) 1 patch DAILY TD Last administered on 08/20/18at 10:58; Start 08/20/18 at 10:00 Non-Formulary Medication (Melatonin ) 9 mg QHS PO ; Start 08/20/18 at 21:00; Status UNV Niacin (Slo-Niacin) 250 mg BID PO Last administered on 08/21/18at 12:33; Start 08/20/18 at 10:00 Ondansetron HCl (Zofran Odt) 4 mg PRN Q6HRS PRN PO NAUSEA/VOMITING, 1ST CHOICE; Start 08/20/18 at 09:45 Polyethylene Glycol (miraLAX PACKET) 17 gm PRN Q8HRS PRN PO CONSTIPATION; Start 08/20/18 at 09:42; Stop 08/20/18 at 12:24; Status DC Sodium Chloride ([place] Saline Nasal) 1 susanna PRN BID PRN NS NASAL CONGESTION; Start 08/20/18 at 10:00 Hydromorphone HCl (Dilaudid) 1 mg PRN Q4HRS PRN IVP PAIN Last administered on 08/21/18at 05:42; Start 08/20/18 at 09:30 Miscellaneous (Lidoderm Patch Removal) 1 ea QHS MC Last administered on 08/20/18at 20:28; Start 08/20/18 at 21:00 Darbepoetin Mauricio (Aranesp) 60 mcg Fr SQ Last administered on 08/20/18at 20:25; Start 08/20/18 at 21:00 Polyethylene Glycol (miraLAX PACKET) 17 gm BID PO ; Start 08/20/18 at 21:00 Lubiprostone (Amitiza) 24 mcg BIDWMEALS PO Last administered on 08/21/18at 17:12; Start 08/20/18 at 17:00 Sodium Chloride 1,000 ml @ 1,000 mls/hr Q1H PRN IV hypotension; Start 08/21/18 at 09:50; Stop 08/21/18 at 15:49; Status DC Info (PHARMACY MONITORING -- do not chart) 1 each PRN DAILY PRN MC SEE COMMENTS; Start 08/21/18 at 10:00; Status UNV Info (PHARMACY MONITORING -- do not chart) 1 each PRN DAILY PRN MC SEE COMMENTS; Start 08/21/18 at 10:00 Vancomycin HCl 500 mg/Sodium Chloride 100 ml @ 100 mls/hr 1X ONCE IV ; Start 08/21/18 at 12:00; Stop 08/21/18 at 12:59; Status UNV Vancomycin HCl 1.5 gm/Sodium Chloride 500 ml @ 250 mls/hr 1X ONCE IV Last administered on 08/21/18at 12:55; Start 08/21/18 at 10:15; Stop 08/21/18 at 12:14; Status DC Active Scripts Active Nystop (Nystatin) 60 Gm Powder 1 Susanna TP BID MDD 1 Morphine Sulfate Er (Morphine Sulfate) 30 Mg Tablet.er 1 Tab PO BID MDD 1 Tramadol Hcl 50 Mg Tablet 50 Mg PO Q4HRS PRN MDD 1 Brilinta (Ticagrelor) 90 Mg Tablet 90 Mg PO BID 30 Days Reported Zofran (Ondansetron Hcl) 4 Mg Tablet 1 Tab PO Q6HRS Lidocaine 1 Each Adh..patch 1 Each TP DAILY Duoneb 0.5-3(2.5) Mg/3 Ml (Albuterol/Ipratropium) 3 Ml Ampul.neb 3 Ml NEB Q4HRS Uriel-Tab (Erythromycin Base) 250 Mg Tablet.dr 250 Mg PO BID Diltiazem 24HR Cd (Diltiazem Hcl) 120 Mg Cap.er.24h 1 Cap PO DAILY Carvedilol (Carvedilol) 12.5 Mg Tablet 12.5 Mg PO BIDWMEALS Tylenol (Acetaminophen) 325 Mg Tablet 2 Tab PO PRN Q6HRS Oxycodone-Acetaminophen 10-325 (Oxycodone Hcl/Acetaminophen) 1 Each Tablet 1 Tab PO Q4HRS Renvela (Sevelamer Carbonate) 800 Mg Tablet 2 Tab PO TID Melatonin 3 Mg Tablet 9 Mg PO QHS Lantus Solostar (Insulin Glargine,Hum.rec.anlog) 100 Unit/1 Ml Insuln.pen 15 Unit SQ QHS Duoneb 0.5-3(2.5) Mg/3 Ml (Albuterol/Ipratropium) 3 Ml Ampul.neb 3 Ml NEB QID PRN Humalog (Insulin Lispro) 100 Unit/1 Ml Vial 0 SQ TID Humalog (Insulin Lispro) 100 Unit/1 Ml Vial 5 Unit SQ TIDWMEALS Guaifenesin 600 Mg Tablet.er 600 Mg PO BID Vienna Saline (Sodium Chloride) 50 Ml Hoonah 1 Hoonah NS BID PRN Acetaminophen 500 Mg Tablet 650 Mg PO Q6HRS PRN Aspirin 81 Mg Tab.chew 1 Tab PO DAILY Calcitriol 0.25 Mcg Capsule 1 Cap PO DAILY Pepcid (Famotidine) 20 Mg Tablet 20 Mg PO HS Niacin 250 Mg Tablet 250 Mg PO BID Miralax (Polyethylene Glycol 3350) 17 Gm Powd.pack 1 Packet PO Q 8HRS PRN Hydralazine Hcl 10 Mg Tablet 1 Tab PO PRN TID PRN Ferrous Sulfate 325 Mg Tablet 1 Tab PO DAILY Diphenhydramine Hcl 50 Mg Capsule 1 Cap PO PRN Q8HRS PRN Prochlorperazine Maleate 10 Mg Tablet 1 Tab PO PRN Q6HRS PRN Tegretol (Carbamazepine) 200 Mg Tablet 1 Tab PO BID Amiodarone Hcl 200 Mg Tablet 1 Tab PO DAILY Lipitor (Atorvastatin Calcium) 80 Mg Tablet 80 Mg PO HS Docusate Sodium 100 Mg Capsule 1 Cap PO Q8HRS PRN Allergies Allergies: Coded Allergies: Sulfa (Sulfonamide Antibiotics) (Verified Allergy, Severe, Anaphylaxis, 03/10/18) meropenem (Verified Allergy, Intermediate, Rash, 03/10/18) Tolerates ancef piperacillin (Verified Allergy, Intermediate, Rash, 03/10/18) Tolerates ancef strawberry (Verified Allergy, Intermediate, 03/10/18) tazobactam (Verified Allergy, Intermediate, 03/10/18) cefazolin (Verified Adverse Reaction, Intermediate, Itching, 03/10/18) Causes Vomiting fentanyl (Verified Adverse Reaction, Intermediate, Nausea and Vomiting, 02/05/18) Vomiting ROS Review of System unobtainable, as pt minimally interactive, but she denies current c/o Physical Exam Physical Exam appears sleepy, awakens to voice briefly, appears cachetic General: No acute distress HEENT: Atraumatic Lungs: Normal air movement Abdomen: Soft, No tenderness Extremities: Other (amputation) Skin: Other (reviewed wound care pictures, necrotic wound on buttock, but appears superficial, no obvious cellultis, reported to not offload) Vitals VITALS Vital Signs Date Time Temp Pulse Resp B/P (MAP) Pulse Ox O2 Delivery O2 Flow Rate FiO2 08/21/18 17:11 77 126/53 08/21/18 16:47 95 Room Air 08/21/18 15:00 98.1 18 98.1 Labs Labs Laboratory Tests Test 08/20/18 00:13 08/20/18 00:58 08/20/18 02:15 08/20/18 05:15 Stool Occult Blood Positive (NEG) Sodium Level 136 mmol/L (136-145) Potassium Level 3.8 mmol/L (3.5-5.1) Chloride Level 91 mmol/L (98-107) Carbon Dioxide Level 30 mmol/L (21-32) Anion Gap 15 (6-14) Blood Urea Nitrogen 47 mg/dL (7-20) Creatinine 4.7 mg/dL (0.6-1.0) Estimated GFR (Cockcroft-Gault) 9.8 BUN/Creatinine Ratio 10 (6-20) Glucose Level 155 mg/dL (70-99) Calcium Level 9.7 mg/dL (8.5-10.1) Magnesium Level 2.1 mg/dL (1.8-2.4) Total Bilirubin 0.8 mg/dL (0.2-1.0) Aspartate Amino Transf (AST/SGOT) 14 U/L (15-37) Alanine Aminotransferase (ALT/SGPT) 8 U/L (14-59) Alkaline Phosphatase 107 U/L (46-116) Total Protein 7.4 g/dL (6.4-8.2) Albumin 2.4 g/dL (3.4-5.0) Albumin/Globulin Ratio 0.5 (1.0-1.7) White Blood Count 33.0 x10^3/uL (4.0-11.0) Red Blood Count 3.13 x10^6/uL (3.50-5.40) Hemoglobin 9.6 g/dL (12.0-15.5) Hematocrit 30.2 % (36.0-47.0) Mean Corpuscular Volume 97 fL (79-100) Mean Corpuscular Hemoglobin 31 pg (25-35) Mean Corpuscular Hemoglobin Concent 32 g/dL (31-37) Red Cell Distribution Width 17.4 % (11.5-14.5) Platelet Count 412 x10^3/uL (140-400) Neutrophils (%) (Auto) 90 % (31-73) Lymphocytes (%) (Auto) 4 % (24-48) Monocytes (%) (Auto) 6 % (0-9) Eosinophils (%) (Auto) 0 % (0-3) Basophils (%) (Auto) 0 % (0-3) Neutrophils # (Auto) 29.5 x10^3uL (1.8-7.7) Lymphocytes # (Auto) 1.4 x10^3/uL (1.0-4.8) Monocytes # (Auto) 1.9 x10^3/uL (0.0-1.1) Eosinophils # (Auto) 0.1 x10^3/uL (0.0-0.7) Basophils # (Auto) 0.1 x10^3/uL (0.0-0.2) Segmented Neutrophils % 91 % (35-66) Band Neutrophils % 1 % (0-9) Lymphocytes % 6 % (24-48) Atypical Lymphocytes % (Manual) 1 % (0-0) Monocytes % 1 % (0-10) Platelet Estimate Increased (ADEQUATE) Giant Platelets Occ Polychromasia Slight Anisocytosis Slight Lactic Acid Level 1.3 mmol/L (0.4-2.0) Test 08/20/18 07:00 08/20/18 09:25 08/20/18 11:49 08/20/18 12:00 Lactic Acid Level 1.6 mmol/L (0.4-2.0) Troponin I Quantitative 0.202 ng/mL (0.000-0.055) 0.225 ng/mL (0.000-0.055) Nasal Screen MRSA (PCR) Negative (Negative) Glucose (Fingerstick) 88 mg/dL (70-99) Test 08/20/18 17:04 08/20/18 20:24 08/21/18 07:31 08/21/18 11:59 Glucose (Fingerstick) 86 mg/dL (70-99) 84 mg/dL (70-99) 90 mg/dL (70-99) 88 mg/dL (70-99) Test 08/21/18 12:17 08/21/18 16:47 White Blood Count 42.8 x10^3/uL (4.0-11.0) Red Blood Count 2.88 x10^6/uL (3.50-5.40) Hemoglobin 8.9 g/dL (12.0-15.5) Hematocrit 28.1 % (36.0-47.0) Mean Corpuscular Volume 98 fL (79-100) Mean Corpuscular Hemoglobin 31 pg (25-35) Mean Corpuscular Hemoglobin Concent 32 g/dL (31-37) Red Cell Distribution Width 17.6 % (11.5-14.5) Platelet Count 355 x10^3/uL (140-400) Neutrophils (%) (Auto) 94 % (31-73) Lymphocytes (%) (Auto) 1 % (24-48) Monocytes (%) (Auto) 4 % (0-9) Eosinophils (%) (Auto) 1 % (0-3) Basophils (%) (Auto) 0 % (0-3) Neutrophils # (Auto) 40.1 x10^3uL (1.8-7.7) Lymphocytes # (Auto) 0.5 x10^3/uL (1.0-4.8) Monocytes # (Auto) 1.8 x10^3/uL (0.0-1.1) Eosinophils # (Auto) 0.3 x10^3/uL (0.0-0.7) Basophils # (Auto) 0.0 x10^3/uL (0.0-0.2) Segmented Neutrophils % 79 % (35-66) Band Neutrophils % 16 % (0-9) Monocytes % 4 % (0-10) Eosinophils % 1 % (0-5) Platelet Estimate Adequate (ADEQUATE) Polychromasia Slight Anisocytosis Slight Sodium Level 138 mmol/L (136-145) Potassium Level 3.3 mmol/L (3.5-5.1) Chloride Level 95 mmol/L (98-107) Carbon Dioxide Level 27 mmol/L (21-32) Anion Gap 16 (6-14) Blood Urea Nitrogen 20 mg/dL (7-20) Creatinine 2.7 mg/dL (0.6-1.0) Estimated GFR (Cockcroft-Gault) 18.5 BUN/Creatinine Ratio 7 (6-20) Glucose Level 95 mg/dL (70-99) Lactic Acid Level 1.2 mmol/L (0.4-2.0) Calcium Level 9.2 mg/dL (8.5-10.1) Total Bilirubin 0.8 mg/dL (0.2-1.0) Aspartate Amino Transf (AST/SGOT) 19 U/L (15-37) Alanine Aminotransferase (ALT/SGPT) 9 U/L (14-59) Alkaline Phosphatase 111 U/L (46-116) Total Protein 6.8 g/dL (6.4-8.2) Albumin 2.2 g/dL (3.4-5.0) Albumin/Globulin Ratio 0.5 (1.0-1.7) Glucose (Fingerstick) 96 mg/dL (70-99) Laboratory Tests Test 08/20/18 20:24 08/21/18 07:31 08/21/18 11:59 08/21/18 12:17 Glucose (Fingerstick) 84 mg/dL (70-99) 90 mg/dL (70-99) 88 mg/dL (70-99) White Blood Count 42.8 x10^3/uL (4.0-11.0) Red Blood Count 2.88 x10^6/uL (3.50-5.40) Hemoglobin 8.9 g/dL (12.0-15.5) Hematocrit 28.1 % (36.0-47.0) Mean Corpuscular Volume 98 fL (79-100) Mean Corpuscular Hemoglobin 31 pg (25-35) Mean Corpuscular Hemoglobin Concent 32 g/dL (31-37) Red Cell Distribution Width 17.6 % (11.5-14.5) Platelet Count 355 x10^3/uL (140-400) Neutrophils (%) (Auto) 94 % (31-73) Lymphocytes (%) (Auto) 1 % (24-48) Monocytes (%) (Auto) 4 % (0-9) Eosinophils (%) (Auto) 1 % (0-3) Basophils (%) (Auto) 0 % (0-3) Neutrophils # (Auto) 40.1 x10^3uL (1.8-7.7) Lymphocytes # (Auto) 0.5 x10^3/uL (1.0-4.8) Monocytes # (Auto) 1.8 x10^3/uL (0.0-1.1) Eosinophils # (Auto) 0.3 x10^3/uL (0.0-0.7) Basophils # (Auto) 0.0 x10^3/uL (0.0-0.2) Segmented Neutrophils % 79 % (35-66) Band Neutrophils % 16 % (0-9) Monocytes % 4 % (0-10) Eosinophils % 1 % (0-5) Platelet Estimate Adequate (ADEQUATE) Polychromasia Slight Anisocytosis Slight Sodium Level 138 mmol/L (136-145) Potassium Level 3.3 mmol/L (3.5-5.1) Chloride Level 95 mmol/L (98-107) Carbon Dioxide Level 27 mmol/L (21-32) Anion Gap 16 (6-14) Blood Urea Nitrogen 20 mg/dL (7-20) Creatinine 2.7 mg/dL (0.6-1.0) Estimated GFR (Cockcroft-Gault) 18.5 BUN/Creatinine Ratio 7 (6-20) Glucose Level 95 mg/dL (70-99) Lactic Acid Level 1.2 mmol/L (0.4-2.0) Calcium Level 9.2 mg/dL (8.5-10.1) Total Bilirubin 0.8 mg/dL (0.2-1.0) Aspartate Amino Transf (AST/SGOT) 19 U/L (15-37) Alanine Aminotransferase (ALT/SGPT) 9 U/L (14-59) Alkaline Phosphatase 111 U/L (46-116) Total Protein 6.8 g/dL (6.4-8.2) Albumin 2.2 g/dL (3.4-5.0) Albumin/Globulin Ratio 0.5 (1.0-1.7) Test 08/21/18 16:47 Glucose (Fingerstick) 96 mg/dL (70-99) Images Images KUB with heavy calcifications, rads recommends CT for further eval, defer to ID and GI Assessment/Plan Assessment/Plan Decub ulcer overall prognosis is poor unlikely ulcers directly contributing to current status. Will consider elective debridement when pt in more stable medical condition. Thanks for consult! PARVIN QUEVEDO MD Aug 21, 2018 17:25
[2018-08-21] MEDS: PATCH REMOVAL. MC SCH (19:14)
[2018-08-21 19:30] VITALS: BP 111/51
[2018-08-21] MEDS: ATORVASTATIN CALCIUM 40 MG TABLET. PO SCH (20:46)
[2018-08-21] MEDS: FAMOTIDINE 20 MG TABLET. PO SCH (20:47)
[2018-08-21] MEDS: INSULIN GLARGINE 300 UNITS/3 ML INSULN.PEN. SQ SCH (20:47)
[2018-08-21 23:49] VITALS: BP_SYST 109; BP_SYST 113; BP_DIAS 33; BP_DIAS 40
[2018-08-22 03:46] VITALS: BP 128/47
[2018-08-22] MEDS: IPRATRPIUM/ALBUTEROL 0.5/2.5MG 3 ML NEBU. NEB SCH ×7 (04:00→23:59)
[2018-08-22 04:47] LABS: BASO # 0.1 x10^3/uL (0.0-0.2); BASO % 0 % (0-3); EOS # 0.2 x10^3/uL (0.0-0.7); EOS % 1 % (0-3); HEMATOCRIT 28.4 % (36.0-47.0); HEMOGLOBIN 8.6 g/dL (12.0-15.5); LYMPH % 3 % (24-48); MEAN CORPUSCULAR HEMOGLOBIN 30 pg (25-35); MEAN CORPUSCULAR HGB CONC 30 g/dL (31-37); MEAN CORPUSCULAR VOLUME 100 fL (79-100); MONO # 1.7 x10^3/uL (0.0-1.1); MONO % 5 % (0-9); NEUT # 32.7 x10^3uL (1.8-7.7); NEUT % 92 % (31-73); PLATELET COUNT 335 x10^3/uL (140-400); RED BLOOD COUNT 2.84 x10^6/uL (3.50-5.40); RED CELL DISTRIBUTION WIDTH 18.1 % (11.5-14.5); WHITE BLOOD COUNT 35.7 x10^3/uL (4.0-11.0)
[2018-08-22 05:08] LABS: ALBUMIN 2.1 g/dL (3.4-5.0); ALBUMIN/GLOBULIN RATIO 0.5 (1.0-1.7); CALCIUM 9.7 mg/dL (8.5-10.1); CREATININE 3.6 mg/dL (0.6-1.0); GFR 13.3; POTASSIUM 3.8 mmol/L (3.5-5.1); TOTAL BILIRUBIN 0.8 mg/dL (0.2-1.0); TOTAL PROTEIN 6.7 g/dL (6.4-8.2)
--- NOTE | 2018-08-22 06:53 | CONS ---
DATE OF CONSULTATION: 08/21/2018 REQUESTING PHYSICIAN: Dr. Mitchell. REASON FOR CONSULTATION: Positive blood cultures. HISTORY OF PRESENT ILLNESS: This patient is a 52-year-old female with a history of multiple comorbidities including chronic pain, for which she takes opioids regularly for relief. She was sent to the ER from [facility] for rectal bleeding. She is chronically constipated and has been disimpacting herself. [place] [address], hemoglobin 9.6 and a positive stool Hemoccult. A KUB showed extensive multifocal vasculopathy. She was evaluated by GI service. A stercolar ulcer suspected and recommended aggressive constipation treatment. Blood cultures were taken and now returned with Gram-positive cocci in 2 of 4 bottles. She was dosed with vancomycin. The patient is somewhat sleepy. She says that she is feeling better. The constipation and bleeding have resolved. She has a history of chronic kidney disease, on hemodialysis. No issues with the AV fistula reported. A PD catheter remains in place. She is not very hungry. Denies nausea, vomiting or abdominal pain. Denies fevers, chills or body aches. She has multiple pressure wounds. PAST MEDICAL HISTORY: Chronic kidney disease, on hemodialysis via AV fistula. Diabetes mellitus. Peripheral neuropathy, cataracts, multiple heart attacks, heart murmur, congestive heart failure, coronary artery disease, peripheral vascular disease, hyperlipidemia, anticoagulation therapy, atrial fibrillation, hypertension, DVT, COPD, emphysema, asthma, sleep apnea, gastroparesis, irritable bowel, obesity, chronic constipation, gastroesophageal reflux, chronic anemia, history of Clostridium difficile, history of MRSA, history of VRE, history of MSSA bacteremia, history of left calcaneal osteomyelitis, history of Klebsiella resistant to ampicillin, history of multiple wounds including right groin, history of Citrobacter. Diabetic retinopathy. PAST SURGICAL HISTORY: Coronary artery bypass grafting, hysterectomy, left BKA, right third and second toe amputations, right upper extremity AV fistula creation. PD catheter placement. Right groin wound debridement with skin graft. History of right lower extremity bypass grafting. Cataract removal. FAMILY HISTORY: Noncontributory. SOCIAL HISTORY: The patient is a resident nursing facility. Nonsmoker. ALLERGIES: Listed as SULFA, CEFAZOLIN, which caused some nausea. MEROPENEM, ZOSYN, STRAWBERRY. She has tolerated cefepime and cefpodoxime. MEDICATIONS: One time dose of vancomycin on August 21, amiodarone, MiraLax, Colace. Other medications are available and have been reviewed on the JUN. REVIEW OF SYSTEMS: Per HPI, otherwise all other review of systems are negative. PHYSICAL EXAMINATION: VITAL SIGNS: Temperature 97.4, blood pressure 106/44, heart rate 85, respiratory rate 20, pulse oximetry is 95% on room air. BMI 19. GENERAL: The patient is propped up in bed, appears drowsy. HEENT: Normal conjunctivae. Oral cavity: Pharynx dry. NECK: Supple. LUNGS: Clear to auscultation. HEART: S1 and S2. Murmur present. ABDOMEN: Mildly distended, soft and nontender with bowel sounds present. PD catheter in place. EXTREMITIES: No gross edema or cyanosis. Previous left BKA. SKIN: Warm without rash. She has multiple wounds. Wound care notes and pictures reviewed. NEUROLOGIC: Drowsy, answers questions appropriately, but attention span is decreased. LABORATORY DATA: Today's WBC 42.8 from 33.0 on admission, hemoglobin 8.9, platelet [id number], segs 79%, bands 16%. Sodium 138, potassium 3.3, creatinine 2.7, BUN 20, glucose 95. Lactic acid 1.2, albumin 2.2, troponin 0.225. KUB per HPI. Blood cultures show gram-positive cocci in clusters in 2 of 4 bottles from August 20. IMAGING DATA: Chest x-ray showed mild right basilar airspace disease. IMPRESSION: 1. Gram-positive cocci bacteremia, present on admission. 2. Leukemoid leukocytosis. 3. Multiple wounds. 4. Multiple antibiotic allergies and intolerance as mentioned above. 5. History of Clostridium difficile, vancomycin-resistant Enterococcus, and Methicillin-resistant Staphylococcus aureus. 6. Rectal bleeding and constipation. 7. Chronic kidney disease, on hemodialysis via arteriovenous fistula. 8. Diabetes mellitus. PLAN: The patient was given a dose of vancomycin. Await GPC identification and susceptibilities. Repeat blood cultures, as well as CBC in the morning. Wound care team is following. We will continue to monitor response. Thank you, Dr. Mitchell, for asking us to participate in this patient's care. Should you have further questions or concerns, please call. The patient is seen and examined and plan of care implemented by Dr. Georges López. GEORGES LÓPEZ MD DR: Larry JOB#: [id number] / [id number]
[2018-08-22 07:15] VITALS: BP 117/52
[2018-08-22] MEDS: INSULIN LISPRO 300 UNITS/3 ML INSULN.PEN. SQ SCH ×6 (08:00→17:00)
[2018-08-22] MEDS: SEVELAMER CARBONATE 800 MG TABLET. PO SCH ×4 (08:00→17:00)
[2018-08-22] MEDS: LIDOCAINE (700MG/PATCH) PATCH. TD SCH (09:00)
[2018-08-22] MEDS: POLYETHYLENE GLYCOL 3350 17 GM PACKET. PO SCH ×2 (09:00→20:39)
[2018-08-22] MEDS: MORPHINE ER 15 MG TABLET.ER PO SCH ×2 (09:12→20:40)
[2018-08-22] MEDS: LUBIPROSTONE 8 MCG CAPSULE PO SCH ×2 (09:13→17:00)
[2018-08-22] MEDS: CALCITRIOL 0.25 MCG CAPSULE. PO SCH (09:13)
[2018-08-22] MEDS: NIACIN ER 250 MG TABLET.ER PO SCH ×2 (09:13→20:40)
[2018-08-22] MEDS: ERYTHROMYCIN BASE 250 MG TABLET PO SCH ×2 (09:13→20:40)
[2018-08-22] MEDS: TICAGRELOR 90 MG TABLET. PO SCH ×2 (09:14→20:40)
[2018-08-22] MEDS: ASPIRIN CHEWABLE 81 MG TABLET. PO SCH (09:14)
[2018-08-22] MEDS: carBAMazepine 200 MG TABLET PO SCH ×2 (09:14→20:40)
[2018-08-22] MEDS: CARVEDILOL 12.5 MG TABLET. PO SCH ×2 (09:14→17:00)
[2018-08-22] MEDS: AMIODARONE HCL 200 MG TABLET. PO SCH (09:14)
[2018-08-22] MEDS: NYSTATIN TOPICAL POWDER 15GM BOTTLE. TP SCH ×2 (09:16→20:42)
[2018-08-22 11:09] VITALS: BP 106/54
--- NOTE | 2018-08-22 11:12 | PDOC ---
Infectious Disease Note Subjective Subjective Says not feeling bad but not feeling good either No F/C/SOA/lipscomb/N/V ROS ROS per HPI Vital Sign Vital Signs Vital Signs Date Time Temp Pulse Resp B/P (MAP) Pulse Ox O2 Delivery O2 Flow Rate FiO2 08/22/18 09:14 74 117/52 08/22/18 09:12 95 Room Air 08/22/18 07:15 98.2 18 98.2 Physical Exam PHYSICAL EXAM GENERAL: Sleeping, weak appearing HEENT: Normal conjunctivae. Oral cavity: Pharynx dry. NECK: Supple. LUNGS: Clear to auscultation. HEART: S1 and S2. Murmur present. ABDOMEN: Mildly distended, soft and nontender with bowel sounds present. PD catheter in place. EXTREMITIES: No gross edema or cyanosis. Previous left BKA. SKIN: Warm without rash. She has multiple wounds. NEUROLOGIC: Drowsy, answers questions appropriately PIV Labs Lab Laboratory Tests Test 08/21/18 11:59 08/21/18 12:17 08/21/18 16:47 08/21/18 20:45 Glucose (Fingerstick) 88 mg/dL (70-99) 96 mg/dL (70-99) 86 mg/dL (70-99) White Blood Count 42.8 x10^3/uL (4.0-11.0) Red Blood Count 2.88 x10^6/uL (3.50-5.40) Hemoglobin 8.9 g/dL (12.0-15.5) Hematocrit 28.1 % (36.0-47.0) Mean Corpuscular Volume 98 fL (79-100) Mean Corpuscular Hemoglobin 31 pg (25-35) Mean Corpuscular Hemoglobin Concent 32 g/dL (31-37) Red Cell Distribution Width 17.6 % (11.5-14.5) Platelet Count 355 x10^3/uL (140-400) Neutrophils (%) (Auto) 94 % (31-73) Lymphocytes (%) (Auto) 1 % (24-48) Monocytes (%) (Auto) 4 % (0-9) Eosinophils (%) (Auto) 1 % (0-3) Basophils (%) (Auto) 0 % (0-3) Neutrophils # (Auto) 40.1 x10^3uL (1.8-7.7) Lymphocytes # (Auto) 0.5 x10^3/uL (1.0-4.8) Monocytes # (Auto) 1.8 x10^3/uL (0.0-1.1) Eosinophils # (Auto) 0.3 x10^3/uL (0.0-0.7) Basophils # (Auto) 0.0 x10^3/uL (0.0-0.2) Segmented Neutrophils % 79 % (35-66) Band Neutrophils % 16 % (0-9) Monocytes % 4 % (0-10) Eosinophils % 1 % (0-5) Platelet Estimate Adequate (ADEQUATE) Polychromasia Slight Anisocytosis Slight Sodium Level 138 mmol/L (136-145) Potassium Level 3.3 mmol/L (3.5-5.1) Chloride Level 95 mmol/L (98-107) Carbon Dioxide Level 27 mmol/L (21-32) Anion Gap 16 (6-14) Blood Urea Nitrogen 20 mg/dL (7-20) Creatinine 2.7 mg/dL (0.6-1.0) Estimated GFR (Cockcroft-Gault) 18.5 BUN/Creatinine Ratio 7 (6-20) Glucose Level 95 mg/dL (70-99) Lactic Acid Level 1.2 mmol/L (0.4-2.0) Calcium Level 9.2 mg/dL (8.5-10.1) Total Bilirubin 0.8 mg/dL (0.2-1.0) Aspartate Amino Transf (AST/SGOT) 19 U/L (15-37) Alanine Aminotransferase (ALT/SGPT) 9 U/L (14-59) Alkaline Phosphatase 111 U/L (46-116) Total Protein 6.8 g/dL (6.4-8.2) Albumin 2.2 g/dL (3.4-5.0) Albumin/Globulin Ratio 0.5 (1.0-1.7) Test 08/22/18 03:25 08/22/18 07:14 White Blood Count 35.7 x10^3/uL (4.0-11.0) Red Blood Count 2.84 x10^6/uL (3.50-5.40) Hemoglobin 8.6 g/dL (12.0-15.5) Hematocrit 28.4 % (36.0-47.0) Mean Corpuscular Volume 100 fL (79-100) Mean Corpuscular Hemoglobin 30 pg (25-35) Mean Corpuscular Hemoglobin Concent 30 g/dL (31-37) Red Cell Distribution Width 18.1 % (11.5-14.5) Platelet Count 335 x10^3/uL (140-400) Neutrophils (%) (Auto) 92 % (31-73) Lymphocytes (%) (Auto) 3 % (24-48) Monocytes (%) (Auto) 5 % (0-9) Eosinophils (%) (Auto) 1 % (0-3) Basophils (%) (Auto) 0 % (0-3) Neutrophils # (Auto) 32.7 x10^3uL (1.8-7.7) Lymphocytes # (Auto) 1.0 x10^3/uL (1.0-4.8) Monocytes # (Auto) 1.7 x10^3/uL (0.0-1.1) Eosinophils # (Auto) 0.2 x10^3/uL (0.0-0.7) Basophils # (Auto) 0.1 x10^3/uL (0.0-0.2) Sodium Level 141 mmol/L (136-145) Potassium Level 3.8 mmol/L (3.5-5.1) Chloride Level 97 mmol/L (98-107) Carbon Dioxide Level 25 mmol/L (21-32) Anion Gap 19 (6-14) Blood Urea Nitrogen 26 mg/dL (7-20) Creatinine 3.6 mg/dL (0.6-1.0) Estimated GFR (Cockcroft-Gault) 13.3 BUN/Creatinine Ratio 7 (6-20) Glucose Level 71 mg/dL (70-99) Calcium Level 9.7 mg/dL (8.5-10.1) Total Bilirubin 0.8 mg/dL (0.2-1.0) Aspartate Amino Transf (AST/SGOT) 19 U/L (15-37) Alanine Aminotransferase (ALT/SGPT) 6 U/L (14-59) Alkaline Phosphatase 111 U/L (46-116) Total Protein 6.7 g/dL (6.4-8.2) Albumin 2.1 g/dL (3.4-5.0) Albumin/Globulin Ratio 0.5 (1.0-1.7) Glucose (Fingerstick) 75 mg/dL (70-99) Micro BLOOD CULTURE Final GRAM POSITIVE COCCI IN CLUSTERS SEEN IN 2 OF 4 BOTTLES; 2 SETS WERE DRAWN; Objective Assessment GPC bacteremia (POA) Leukocytosis Multiple wounds Multiple abx allergies h/o c. diff Rectal bleeding and constipation CKD/HD via AV fistula Diabetes Plan Plan of Care vanc x 1 dose, 08/21. continue renal dosing Await GPC ID/susceptibilities Repeat BC from 08/21 pending Monitor WBC/temp Wound care team following Attending Co-Sign The patient was seen and interviewed as well as examined at the bedside. The chart was reviewed. The case was discussed. Agree with the plan of care. KYLEIGH QUEEN APRN Aug 22, 2018 11:12 DANDY LÓPEZ MD Aug 22, 2018 13:37
--- NOTE | 2018-08-22 13:41 | PDOC ---
PROGRESS NOTES Chief Complaint Chief Complaint sepsis rectal bleeding opioid induced constipation, recent impaction, relistor? GI consult Dm1 CAD, ESRD chronic elevated troponin s/p BKA, poorly mobile acute on chronic pain, opioid dependence Guarded prognosis History of Present Illness History of Present Illness cont abx wound care, consider debridement vasculopathy CBC in am ID consult following pt and ot as able Vitals Vitals Vital Signs Date Time Temp Pulse Resp B/P (MAP) Pulse Ox O2 Delivery O2 Flow Rate FiO2 08/22/18 11:32 95 Room Air 08/22/18 11:09 98.3 108 18 106/54 (71) 98.3 Physical Exam Physical Exam GENERAL: Sleeping, weak appearing HEENT: Normal conjunctivae. Oral cavity: Pharynx dry. NECK: Supple. LUNGS: Clear to auscultation. HEART: S1 and S2. Murmur present. ABDOMEN: Mildly distended, soft and nontender with bowel sounds present. PD catheter in place. EXTREMITIES: No gross edema or cyanosis. Previous left BKA. SKIN: Warm without rash. She has multiple wounds. NEUROLOGIC: Drowsy, answers questions appropriately PIV General: mild distress Heart: Regular rate, Normal S1, Normal S2 Lungs: Clear, Other Abdomen: Soft, No tenderness Extremities: Other (amputation) Skin: Other (reviewed wound care pictures, necrotic wound on buttock, but appears superficial, no obvious cellultis, reported to not offload) Labs LABS Laboratory Tests Test 08/21/18 16:47 08/21/18 20:45 08/22/18 03:25 08/22/18 07:14 Glucose (Fingerstick) 96 mg/dL (70-99) 86 mg/dL (70-99) 75 mg/dL (70-99) White Blood Count 35.7 x10^3/uL (4.0-11.0) Red Blood Count 2.84 x10^6/uL (3.50-5.40) Hemoglobin 8.6 g/dL (12.0-15.5) Hematocrit 28.4 % (36.0-47.0) Mean Corpuscular Volume 100 fL (79-100) Mean Corpuscular Hemoglobin 30 pg (25-35) Mean Corpuscular Hemoglobin Concent 30 g/dL (31-37) Red Cell Distribution Width 18.1 % (11.5-14.5) Platelet Count 335 x10^3/uL (140-400) Neutrophils (%) (Auto) 92 % (31-73) Lymphocytes (%) (Auto) 3 % (24-48) Monocytes (%) (Auto) 5 % (0-9) Eosinophils (%) (Auto) 1 % (0-3) Basophils (%) (Auto) 0 % (0-3) Neutrophils # (Auto) 32.7 x10^3uL (1.8-7.7) Lymphocytes # (Auto) 1.0 x10^3/uL (1.0-4.8) Monocytes # (Auto) 1.7 x10^3/uL (0.0-1.1) Eosinophils # (Auto) 0.2 x10^3/uL (0.0-0.7) Basophils # (Auto) 0.1 x10^3/uL (0.0-0.2) Sodium Level 141 mmol/L (136-145) Potassium Level 3.8 mmol/L (3.5-5.1) Chloride Level 97 mmol/L (98-107) Carbon Dioxide Level 25 mmol/L (21-32) Anion Gap 19 (6-14) Blood Urea Nitrogen 26 mg/dL (7-20) Creatinine 3.6 mg/dL (0.6-1.0) Estimated GFR (Cockcroft-Gault) 13.3 BUN/Creatinine Ratio 7 (6-20) Glucose Level 71 mg/dL (70-99) Calcium Level 9.7 mg/dL (8.5-10.1) Total Bilirubin 0.8 mg/dL (0.2-1.0) Aspartate Amino Transf (AST/SGOT) 19 U/L (15-37) Alanine Aminotransferase (ALT/SGPT) 6 U/L (14-59) Alkaline Phosphatase 111 U/L (46-116) Total Protein 6.7 g/dL (6.4-8.2) Albumin 2.1 g/dL (3.4-5.0) Albumin/Globulin Ratio 0.5 (1.0-1.7) Test 08/22/18 11:29 Glucose (Fingerstick) 88 mg/dL (70-99) Comment Review of Relevant I have reviewed the following items bert (where applicable) has been applied. Labs Laboratory Tests Test 08/20/18 17:04 08/20/18 20:24 08/21/18 07:31 08/21/18 11:59 Glucose (Fingerstick) 86 mg/dL (70-99) 84 mg/dL (70-99) 90 mg/dL (70-99) 88 mg/dL (70-99) Test 08/21/18 12:17 08/21/18 16:47 08/21/18 20:45 08/22/18 03:25 White Blood Count 42.8 x10^3/uL (4.0-11.0) 35.7 x10^3/uL (4.0-11.0) Red Blood Count 2.88 x10^6/uL (3.50-5.40) 2.84 x10^6/uL (3.50-5.40) Hemoglobin 8.9 g/dL (12.0-15.5) 8.6 g/dL (12.0-15.5) Hematocrit 28.1 % (36.0-47.0) 28.4 % (36.0-47.0) Mean Corpuscular Volume 98 fL (79-100) 100 fL (79-100) Mean Corpuscular Hemoglobin 31 pg (25-35) 30 pg (25-35) Mean Corpuscular Hemoglobin Concent 32 g/dL (31-37) 30 g/dL (31-37) Red Cell Distribution Width 17.6 % (11.5-14.5) 18.1 % (11.5-14.5) Platelet Count 355 x10^3/uL (140-400) 335 x10^3/uL (140-400) Neutrophils (%) (Auto) 94 % (31-73) 92 % (31-73) Lymphocytes (%) (Auto) 1 % (24-48) 3 % (24-48) Monocytes (%) (Auto) 4 % (0-9) 5 % (0-9) Eosinophils (%) (Auto) 1 % (0-3) 1 % (0-3) Basophils (%) (Auto) 0 % (0-3) 0 % (0-3) Neutrophils # (Auto) 40.1 x10^3uL (1.8-7.7) 32.7 x10^3uL (1.8-7.7) Lymphocytes # (Auto) 0.5 x10^3/uL (1.0-4.8) 1.0 x10^3/uL (1.0-4.8) Monocytes # (Auto) 1.8 x10^3/uL (0.0-1.1) 1.7 x10^3/uL (0.0-1.1) Eosinophils # (Auto) 0.3 x10^3/uL (0.0-0.7) 0.2 x10^3/uL (0.0-0.7) Basophils # (Auto) 0.0 x10^3/uL (0.0-0.2) 0.1 x10^3/uL (0.0-0.2) Segmented Neutrophils % 79 % (35-66) Band Neutrophils % 16 % (0-9) Monocytes % 4 % (0-10) Eosinophils % 1 % (0-5) Platelet Estimate Adequate (ADEQUATE) Polychromasia Slight Anisocytosis Slight Sodium Level 138 mmol/L (136-145) 141 mmol/L (136-145) Potassium Level 3.3 mmol/L (3.5-5.1) 3.8 mmol/L (3.5-5.1) Chloride Level 95 mmol/L (98-107) 97 mmol/L (98-107) Carbon Dioxide Level 27 mmol/L (21-32) 25 mmol/L (21-32) Anion Gap 16 (6-14) 19 (6-14) Blood Urea Nitrogen 20 mg/dL (7-20) 26 mg/dL (7-20) Creatinine 2.7 mg/dL (0.6-1.0) 3.6 mg/dL (0.6-1.0) Estimated GFR (Cockcroft-Gault) 18.5 13.3 BUN/Creatinine Ratio 7 (6-20) 7 (6-20) Glucose Level 95 mg/dL (70-99) 71 mg/dL (70-99) Lactic Acid Level 1.2 mmol/L (0.4-2.0) Calcium Level 9.2 mg/dL (8.5-10.1) 9.7 mg/dL (8.5-10.1) Total Bilirubin 0.8 mg/dL (0.2-1.0) 0.8 mg/dL (0.2-1.0) Aspartate Amino Transf (AST/SGOT) 19 U/L (15-37) 19 U/L (15-37) Alanine Aminotransferase (ALT/SGPT) 9 U/L (14-59) 6 U/L (14-59) Alkaline Phosphatase 111 U/L (46-116) 111 U/L (46-116) Total Protein 6.8 g/dL (6.4-8.2) 6.7 g/dL (6.4-8.2) Albumin 2.2 g/dL (3.4-5.0) 2.1 g/dL (3.4-5.0) Albumin/Globulin Ratio 0.5 (1.0-1.7) 0.5 (1.0-1.7) Glucose (Fingerstick) 96 mg/dL (70-99) 86 mg/dL (70-99) Test 08/22/18 07:14 08/22/18 11:29 Glucose (Fingerstick) 75 mg/dL (70-99) 88 mg/dL (70-99) Laboratory Tests Test 08/21/18 16:47 08/21/18 20:45 08/22/18 03:25 08/22/18 07:14 Glucose (Fingerstick) 96 mg/dL (70-99) 86 mg/dL (70-99) 75 mg/dL (70-99) White Blood Count 35.7 x10^3/uL (4.0-11.0) Red Blood Count 2.84 x10^6/uL (3.50-5.40) Hemoglobin 8.6 g/dL (12.0-15.5) Hematocrit 28.4 % (36.0-47.0) Mean Corpuscular Volume 100 fL (79-100) Mean Corpuscular Hemoglobin 30 pg (25-35) Mean Corpuscular Hemoglobin Concent 30 g/dL (31-37) Red Cell Distribution Width 18.1 % (11.5-14.5) Platelet Count 335 x10^3/uL (140-400) Neutrophils (%) (Auto) 92 % (31-73) Lymphocytes (%) (Auto) 3 % (24-48) Monocytes (%) (Auto) 5 % (0-9) Eosinophils (%) (Auto) 1 % (0-3) Basophils (%) (Auto) 0 % (0-3) Neutrophils # (Auto) 32.7 x10^3uL (1.8-7.7) Lymphocytes # (Auto) 1.0 x10^3/uL (1.0-4.8) Monocytes # (Auto) 1.7 x10^3/uL (0.0-1.1) Eosinophils # (Auto) 0.2 x10^3/uL (0.0-0.7) Basophils # (Auto) 0.1 x10^3/uL (0.0-0.2) Sodium Level 141 mmol/L (136-145) Potassium Level 3.8 mmol/L (3.5-5.1) Chloride Level 97 mmol/L (98-107) Carbon Dioxide Level 25 mmol/L (21-32) Anion Gap 19 (6-14) Blood Urea Nitrogen 26 mg/dL (7-20) Creatinine 3.6 mg/dL (0.6-1.0) Estimated GFR (Cockcroft-Gault) 13.3 BUN/Creatinine Ratio 7 (6-20) Glucose Level 71 mg/dL (70-99) Calcium Level 9.7 mg/dL (8.5-10.1) Total Bilirubin 0.8 mg/dL (0.2-1.0) Aspartate Amino Transf (AST/SGOT) 19 U/L (15-37) Alanine Aminotransferase (ALT/SGPT) 6 U/L (14-59) Alkaline Phosphatase 111 U/L (46-116) Total Protein 6.7 g/dL (6.4-8.2) Albumin 2.1 g/dL (3.4-5.0) Albumin/Globulin Ratio 0.5 (1.0-1.7) Test 08/22/18 11:29 Glucose (Fingerstick) 88 mg/dL (70-99) Microbiology 08/21/18 Blood Culture - Preliminary, Resulted NO GROWTH AFTER 1 DAY Medications Current Medications Sodium Chloride 1,000 ml @ 1,000 mls/hr 1X ONCE IV Last administered on 08/20/18at 04:28; Start 08/20/18 at 03:00; Stop 08/20/18 at 03:59; Status DC Cefepime HCl (Maxipime) 2 gm 1X ONCE IVP Last administered on 08/20/18 04:28; Start 08/20/18 at 03:00; Stop 08/20/18 at 03:01; Status DC Ondansetron HCl (Zofran) 4 mg PRN Q8HRS PRN IV NAUSEA/VOMITING 1ST CHOICE Last administered on 08/20/18 07:27; Start 08/20/18 at 05:00; Stop 08/21/18 at 04:59; Status DC Insulin Human Lispro (HumaLOG) 0-5 UNITS TIDWMEALS SQ ; Start 08/20/18 at 08:00 Dextrose (Dextrose 50%-Water Syringe) 12.5 gm PRN Q15MIN PRN IV SEE COMMENTS; Start 08/20/18 at 05:00 Acetaminophen (Tylenol) 650 mg PRN Q6HRS PRN PO MILD PAIN / TEMP; Start 08/20/18 at 09:30 Amiodarone HCl (Cordarone) 200 mg DAILY PO Last administered on 08/22/18 09:14; Start 08/20/18 at 10:00 Aspirin (Children'S Aspirin) 81 mg DAILY PO Last administered on 08/22/18 09: 14; Start 08/20/18 at 10:00 Carbamazepine (TEGretol) 200 mg BID PO Last administered on 08/22/18 09:14; Start 08/20/18 at 10:00 Carvedilol (Coreg) 12.5 mg BIDWMEALS PO Last administered on 08/22/18 09:14; Start 08/20/18 at 10:00 Docusate Sodium (Colace) 100 mg PRN Q8HRS PRN PO CONSTIPATION; Start 08/20/18 at 09:30 Famotidine (Pepcid) 20 mg HS PO Last administered on 08/21/18at 20:47; Start 08/20/18 at 21:00 Guaifenesin (Mucinex) 600 mg BID PO Last administered on 08/22/18 09:13; Start 08/20/18 at 10:00 Insulin Glargine (Lantus) 15 units QHS SQ ; Start 08/20/18 at 21:00 Insulin Human Lispro (HumaLOG) 5 units TIDWMEALS SQ ; Start 08/20/18 at 12:00 Insulin Human Lispro (HumaLOG VIAL) 5 unit TIDWMEALS SQ ; Start 08/20/18 at 12:00; Status UNV Albuterol/ Ipratropium (Duoneb) 3 ml Q4HRS NEB Last administered on 08/22/18at 11:31; Start 08/20/18 at 12:00 Albuterol Sulfate (Ventolin Neb Soln) 2.5 mg PRN Q4HRS PRN NEB SHORTNESS OF BREATH; Start 08/20/18 at 09:45 Morphine Sulfate (Ms Contin) 30 mg BID PO Last administered on 08/22/18 09:12; Start 08/20/18 at 10:00 Nystatin (Nystop) 1 susanna BID TP Last administered on 08/22/18 09:16; Start 08/20/18 at 10:00 Oxycodone/ Acetaminophen (Percocet 10/325) 1 tab PRN Q4HRS PRN PO MODERATE - SEVERE PAIN; Start 08/20/18 at 12:00 Prochlorperazine Maleate (Compazine) 10 mg PRN Q6HRS PRN PO NAUSEA/VOMITING; Start 08/20/18 at 09:30 Sevelamer Carbonate (Renvela) 1,600 mg TIDWMEALS PO Last administered on 08/21/18 17:12; Start 08/20/18 at 12:00 Ticagrelor (Brilinta) 90 mg BID PO Last administered on 08/22/18 09:14; Start 08/20/18 at 10:00 Atorvastatin Calcium (Lipitor) 80 mg QHS PO Last administered on 08/21/18at 20:46; Start 08/20/18 at 21:00 Calcitriol (Rocaltrol) 0.25 mcg DAILY PO Last administered on 08/22/18 09:13; Start 08/20/18 at 10:00 Diltiazem HCl (Cardizem 24hr Cd) 120 mg DAILY PO Last administered on 08/22/18 09:13; Start 08/20/18 at 10:00 Erythromycin (E-Mycin) 250 mg BID PO Last administered on 08/22/18 09:13; Start 08/20/18 at 10:00 Hydralazine HCl (Apresoline) 10 mg PRN TID PRN PO ELEVATED BP; Start 08/20/18 at 14:00 Lidocaine (Lidoderm) 1 patch DAILY TD Last administered on 08/20/18at 10:58; Start 08/20/18 at 10:00 Non-Formulary Medication (Melatonin ) 9 mg QHS PO ; Start 08/20/18 at 21:00; Status UNV Niacin (Slo-Niacin) 250 mg BID PO Last administered on 08/22/18at 09:13; Start 08/20/18 at 10:00 Ondansetron HCl (Zofran Odt) 4 mg PRN Q6HRS PRN PO NAUSEA/VOMITING, 1ST CHOICE; Start 08/20/18 at 09:45 Polyethylene Glycol (miraLAX PACKET) 17 gm PRN Q8HRS PRN PO CONSTIPATION; Start 08/20/18 at 09:42; Stop 08/20/18 at 12:24; Status DC Sodium Chloride ([place] Saline Nasal) 1 susanna PRN BID PRN NS NASAL CONGESTION; Start 08/20/18 at 10:00 Hydromorphone HCl (Dilaudid) 1 mg PRN Q4HRS PRN IVP PAIN Last administered on 08/21/18at 05:42; Start 08/20/18 at 09:30 Miscellaneous (Lidoderm Patch Removal) 1 ea QHS MC Last administered on 08/20/18at 20:28; Start 08/20/18 at 21:00 Darbepoetin Mauricio (Aranesp) 60 mcg Fr SQ Last administered on 08/20/18at 20:25; Start 08/20/18 at 21:00 Polyethylene Glycol (miraLAX PACKET) 17 gm BID PO ; Start 08/20/18 at 21:00 Lubiprostone (Amitiza) 24 mcg BIDWMEALS PO Last administered on 08/22/18at 09:13; Start 08/20/18 at 17:00 Sodium Chloride 1,000 ml @ 1,000 mls/hr Q1H PRN IV hypotension; Start 08/21/18 at 09:50; Stop 08/21/18 at 15:49; Status DC Info (PHARMACY MONITORING -- do not chart) 1 each PRN DAILY PRN MC SEE COMMENTS; Start 08/21/18 at 10:00; Status UNV Info (PHARMACY MONITORING -- do not chart) 1 each PRN DAILY PRN MC SEE COMMENTS ; Start 08/21/18 at 10:00 Vancomycin HCl 500 mg/Sodium Chloride 100 ml @ 100 mls/hr 1X ONCE IV ; Start 08/21/18 at 12:00; Stop 08/21/18 at 12:59; Status UNV Vancomycin HCl 1.5 gm/Sodium Chloride 500 ml @ 250 mls/hr 1X ONCE IV Last administered on 08/21/18at 12:55; Start 08/21/18 at 10:15; Stop 08/21/18 at 12:14; Status DC Vancomycin HCl (Vanco Per Pharmacy) 1 each PRN DAILY PRN MC SEE COMMENTS; Start 08/22/18 at 11:15 Active Scripts Active Nystop (Nystatin) 60 Gm Powder 1 Susanna TP BID MDD 1 Morphine Sulfate Er (Morphine Sulfate) 30 Mg Tablet.er 1 Tab PO BID MDD 1 Tramadol Hcl 50 Mg Tablet 50 Mg PO Q4HRS PRN MDD 1 Brilinta (Ticagrelor) 90 Mg Tablet 90 Mg PO BID 30 Days Reported Zofran (Ondansetron Hcl) 4 Mg Tablet 1 Tab PO Q6HRS Lidocaine 1 Each Adh..patch 1 Each TP DAILY Duoneb 0.5-3(2.5) Mg/3 Ml (Albuterol/Ipratropium) 3 Ml Ampul.neb 3 Ml NEB Q4HRS Uriel-Tab (Erythromycin Base) 250 Mg Tablet.dr 250 Mg PO BID Diltiazem 24HR Cd (Diltiazem Hcl) 120 Mg Cap.er.24h 1 Cap PO DAILY Carvedilol (Carvedilol) 12.5 Mg Tablet 12.5 Mg PO BIDWMEALS Tylenol (Acetaminophen) 325 Mg Tablet 2 Tab PO PRN Q6HRS Oxycodone-Acetaminophen 10-325 (Oxycodone Hcl/Acetaminophen) 1 Each Tablet 1 Tab PO Q4HRS Renvela (Sevelamer Carbonate) 800 Mg Tablet 2 Tab PO TID Melatonin 3 Mg Tablet 9 Mg PO QHS Lantus Solostar (Insulin Glargine,Hum.rec.anlog) 100 Unit/1 Ml Insuln.pen 15 Unit SQ QHS Duoneb 0.5-3(2.5) Mg/3 Ml (Albuterol/Ipratropium) 3 Ml Ampul.neb 3 Ml NEB QID PRN Humalog (Insulin Lispro) 100 Unit/1 Ml Vial 0 SQ TID Humalog (Insulin Lispro) 100 Unit/1 Ml Vial 5 Unit SQ TIDWMEALS Guaifenesin 600 Mg Tablet.er 600 Mg PO BID [place] Saline (Sodium Chloride) 50 Ml Rufe 1 Rufe NS BID PRN Acetaminophen 500 Mg Tablet 650 Mg PO Q6HRS PRN Aspirin 81 Mg Tab.chew 1 Tab PO DAILY Calcitriol 0.25 Mcg Capsule 1 Cap PO DAILY Pepcid (Famotidine) 20 Mg Tablet 20 Mg PO HS Niacin 250 Mg Tablet 250 Mg PO BID Miralax (Polyethylene Glycol 3350) 17 Gm Powd.pack 1 Packet PO Q 8HRS PRN Hydralazine Hcl 10 Mg Tablet 1 Tab PO PRN TID PRN Ferrous Sulfate 325 Mg Tablet 1 Tab PO DAILY Diphenhydramine Hcl 50 Mg Capsule 1 Cap PO PRN Q8HRS PRN Prochlorperazine Maleate 10 Mg Tablet 1 Tab PO PRN Q6HRS PRN Tegretol (Carbamazepine) 200 Mg Tablet 1 Tab PO BID Amiodarone Hcl 200 Mg Tablet 1 Tab PO DAILY Lipitor (Atorvastatin Calcium) 80 Mg Tablet 80 Mg PO HS Docusate Sodium 100 Mg Capsule 1 Cap PO Q8HRS PRN Vitals/I & O Vital Sign - Last 24 Hours 08/21/18 08/21/18 08/21/18 08/21/18 15:00 15:27 16:47 17:11 Temp 98.1 98.1 Pulse 77 77 Resp 18 B/P (MAP) 126/53 (77) 126/53 Pulse Ox 96 95 95 O2 Delivery Room Air Room Air 08/21/18 08/21/18 08/21/18 08/21/18 19:30 20:00 20:27 20:47 Temp 97.8 97.8 Pulse 68 Resp 16 B/P (MAP) 111/51 (71) Pulse Ox 100 95 O2 Delivery Room Air Room Air Room Air Room Air 08/21/18 08/22/18 08/22/18 08/22/18 23:49 00:00 00:59 03:46 Temp 97.8 97.5 97.8 97.5 Pulse 65 72 Resp 20 20 B/P (MAP) 109/33 (58) 128/47 (74) 113/40 (64) 128/47 (74) Pulse Ox 96 95 98 O2 Delivery Room Air Room Air Room Air Room Air 08/22/18 08/22/18 08/22/18 08/22/18 07:15 07:34 08:00 09:12 Temp 98.2 98.2 Pulse 74 Resp 18 B/P (MAP) 117/52 (73) Pulse Ox 99 95 95 O2 Delivery Room Air Room Air Room Air Room Air 08/22/18 08/22/18 08/22/18 08/22/18 09:13 09:14 09:14 11:09 Temp 98.3 98.3 Pulse 74 74 74 108 Resp 18 B/P (MAP) 117/52 117/52 117/52 106/54 (71) Pulse Ox 95 O2 Delivery Room Air 08/22/18 11:32 Pulse Ox 95 O2 Delivery Room Air Intake and Output 08/21/18 08/21/18 08/22/18 15:00 23:00 07:00 Intake Total 225 ml 200 ml 100 ml Balance 225 ml 200 ml 100 ml Nutrition Consultation Dietary Evaluation: Recommendations by RD: Increase Calorie Intake, Protein supplementation Comments: continue to encourage intake REC mvi vit c for wounds offer nepro, ifeoma supplements Expected Outcomes/Goals: to meet > 50% est nutr needs Interpretation of weight loss: >10% in 6 months Malnutrition Findings: Body Fat Depletion (Non Severe: Mild Depletion Weight Status: Underweight ROMI GOSS MD Aug 22, 2018 13:41
[2018-08-22] MEDS: VANCOMYCIN PER PHARMACY MC PRN (14:43)
--- NOTE | 2018-08-22 14:43 | NUR ---
Pharmacy Vancomycin Dosing Note S: Consulted to monitor and dose vancomycin started 08/21/18. O: JAMAL BOSE is a 52 year old F with Bacteremia, CHRONIC WOUNDS . LABS: Last BUN: 26 Last Creatinine: 3.6 Creatinine Clearance: DIALYSIS TuThSa Last WBC: 35.7 Tmax (past 24 hours): 98.3 LOAD dose given 08/21/18 at 1255 Target Trough: 10-20 A: Based on: VANCO dosing guidelines P: 1. Begin Vancomycin 1500 mg IV LOAD dose on 08/21/18 then 500mg after each dialysis. 2. Follow up Random level on 08/24/18 at 0500 3. Pharmacy will continue to monitor, follow and adjust therapy as needed. DOMO COOK, [facility], 08/22/18 [id number]
[2018-08-22 15:20] VITALS: BP 101/56
--- NOTE | 2018-08-22 15:30 | PDOC ---
SURGICAL PROGRESS NOTE Subjective Pt minimally responsive Vital Signs Vital Signs Date Time Temp Pulse Resp B/P (MAP) Pulse Ox O2 Delivery O2 Flow Rate FiO2 08/22/18 14:13 95 Room Air 08/22/18 11:09 98.3 108 18 106/54 (71) 98.3 I&O Intake and Output 08/22/18 07:00 Intake Total 525 ml Balance 525 ml Intake Oral 525 ml General: No acute distress Abdomen: Soft, No tenderness Labs Laboratory Tests Test 08/20/18 17:04 08/20/18 20:24 08/21/18 07:31 08/21/18 11:59 Glucose (Fingerstick) 86 mg/dL (70-99) 84 mg/dL (70-99) 90 mg/dL (70-99) 88 mg/dL (70-99) Test 08/21/18 12:17 08/21/18 16:47 08/21/18 20:45 08/22/18 03:25 White Blood Count 42.8 x10^3/uL (4.0-11.0) 35.7 x10^3/uL (4.0-11.0) Red Blood Count 2.88 x10^6/uL (3.50-5.40) 2.84 x10^6/uL (3.50-5.40) Hemoglobin 8.9 g/dL (12.0-15.5) 8.6 g/dL (12.0-15.5) Hematocrit 28.1 % (36.0-47.0) 28.4 % (36.0-47.0) Mean Corpuscular Volume 98 fL (79-100) 100 fL (79-100) Mean Corpuscular Hemoglobin 31 pg (25-35) 30 pg (25-35) Mean Corpuscular Hemoglobin Concent 32 g/dL (31-37) 30 g/dL (31-37) Red Cell Distribution Width 17.6 % (11.5-14.5) 18.1 % (11.5-14.5) Platelet Count 355 x10^3/uL (140-400) 335 x10^3/uL (140-400) Neutrophils (%) (Auto) 94 % (31-73) 92 % (31-73) Lymphocytes (%) (Auto) 1 % (24-48) 3 % (24-48) Monocytes (%) (Auto) 4 % (0-9) 5 % (0-9) Eosinophils (%) (Auto) 1 % (0-3) 1 % (0-3) Basophils (%) (Auto) 0 % (0-3) 0 % (0-3) Neutrophils # (Auto) 40.1 x10^3uL (1.8-7.7) 32.7 x10^3uL (1.8-7.7) Lymphocytes # (Auto) 0.5 x10^3/uL (1.0-4.8) 1.0 x10^3/uL (1.0-4.8) Monocytes # (Auto) 1.8 x10^3/uL (0.0-1.1) 1.7 x10^3/uL (0.0-1.1) Eosinophils # (Auto) 0.3 x10^3/uL (0.0-0.7) 0.2 x10^3/uL (0.0-0.7) Basophils # (Auto) 0.0 x10^3/uL (0.0-0.2) 0.1 x10^3/uL (0.0-0.2) Segmented Neutrophils % 79 % (35-66) Band Neutrophils % 16 % (0-9) Monocytes % 4 % (0-10) Eosinophils % 1 % (0-5) Platelet Estimate Adequate (ADEQUATE) Polychromasia Slight Anisocytosis Slight Sodium Level 138 mmol/L (136-145) 141 mmol/L (136-145) Potassium Level 3.3 mmol/L (3.5-5.1) 3.8 mmol/L (3.5-5.1) Chloride Level 95 mmol/L (98-107) 97 mmol/L (98-107) Carbon Dioxide Level 27 mmol/L (21-32) 25 mmol/L (21-32) Anion Gap 16 (6-14) 19 (6-14) Blood Urea Nitrogen 20 mg/dL (7-20) 26 mg/dL (7-20) Creatinine 2.7 mg/dL (0.6-1.0) 3.6 mg/dL (0.6-1.0) Estimated GFR (Cockcroft-Gault) 18.5 13.3 BUN/Creatinine Ratio 7 (6-20) 7 (6-20) Glucose Level 95 mg/dL (70-99) 71 mg/dL (70-99) Lactic Acid Level 1.2 mmol/L (0.4-2.0) Calcium Level 9.2 mg/dL (8.5-10.1) 9.7 mg/dL (8.5-10.1) Total Bilirubin 0.8 mg/dL (0.2-1.0) 0.8 mg/dL (0.2-1.0) Aspartate Amino Transf (AST/SGOT) 19 U/L (15-37) 19 U/L (15-37) Alanine Aminotransferase (ALT/SGPT) 9 U/L (14-59) 6 U/L (14-59) Alkaline Phosphatase 111 U/L (46-116) 111 U/L (46-116) Total Protein 6.8 g/dL (6.4-8.2) 6.7 g/dL (6.4-8.2) Albumin 2.2 g/dL (3.4-5.0) 2.1 g/dL (3.4-5.0) Albumin/Globulin Ratio 0.5 (1.0-1.7) 0.5 (1.0-1.7) Glucose (Fingerstick) 96 mg/dL (70-99) 86 mg/dL (70-99) Test 08/22/18 07:14 08/22/18 11:29 Glucose (Fingerstick) 75 mg/dL (70-99) 88 mg/dL (70-99) Laboratory Tests Test 08/21/18 16:47 08/21/18 20:45 08/22/18 03:25 08/22/18 07:14 Glucose (Fingerstick) 96 mg/dL (70-99) 86 mg/dL (70-99) 75 mg/dL (70-99) White Blood Count 35.7 x10^3/uL (4.0-11.0) Red Blood Count 2.84 x10^6/uL (3.50-5.40) Hemoglobin 8.6 g/dL (12.0-15.5) Hematocrit 28.4 % (36.0-47.0) Mean Corpuscular Volume 100 fL (79-100) Mean Corpuscular Hemoglobin 30 pg (25-35) Mean Corpuscular Hemoglobin Concent 30 g/dL (31-37) Red Cell Distribution Width 18.1 % (11.5-14.5) Platelet Count 335 x10^3/uL (140-400) Neutrophils (%) (Auto) 92 % (31-73) Lymphocytes (%) (Auto) 3 % (24-48) Monocytes (%) (Auto) 5 % (0-9) Eosinophils (%) (Auto) 1 % (0-3) Basophils (%) (Auto) 0 % (0-3) Neutrophils # (Auto) 32.7 x10^3uL (1.8-7.7) Lymphocytes # (Auto) 1.0 x10^3/uL (1.0-4.8) Monocytes # (Auto) 1.7 x10^3/uL (0.0-1.1) Eosinophils # (Auto) 0.2 x10^3/uL (0.0-0.7) Basophils # (Auto) 0.1 x10^3/uL (0.0-0.2) Sodium Level 141 mmol/L (136-145) Potassium Level 3.8 mmol/L (3.5-5.1) Chloride Level 97 mmol/L (98-107) Carbon Dioxide Level 25 mmol/L (21-32) Anion Gap 19 (6-14) Blood Urea Nitrogen 26 mg/dL (7-20) Creatinine 3.6 mg/dL (0.6-1.0) Estimated GFR (Cockcroft-Gault) 13.3 BUN/Creatinine Ratio 7 (6-20) Glucose Level 71 mg/dL (70-99) Calcium Level 9.7 mg/dL (8.5-10.1) Total Bilirubin 0.8 mg/dL (0.2-1.0) Aspartate Amino Transf (AST/SGOT) 19 U/L (15-37) Alanine Aminotransferase (ALT/SGPT) 6 U/L (14-59) Alkaline Phosphatase 111 U/L (46-116) Total Protein 6.7 g/dL (6.4-8.2) Albumin 2.1 g/dL (3.4-5.0) Albumin/Globulin Ratio 0.5 (1.0-1.7) Test 08/22/18 11:29 Glucose (Fingerstick) 88 mg/dL (70-99) Problem List sacral ulcer cont abx and supportive care will consider debridement pending clinical improvement PARVIN QUEVEDO MD Aug 22, 2018 15:30
[2018-08-22 19:42] VITALS: BP 100/58
[2018-08-22] MEDS: FAMOTIDINE 20 MG TABLET. PO SCH (20:40)
[2018-08-22] MEDS: ATORVASTATIN CALCIUM 40 MG TABLET. PO SCH (20:40)
[2018-08-22] MEDS: INSULIN GLARGINE 300 UNITS/3 ML INSULN.PEN. SQ SCH (20:57)
[2018-08-22] MEDS: PATCH REMOVAL. MC SCH (21:00)
[2018-08-22 23:14] VITALS: BP 97/55
[2018-08-23 03:29] VITALS: BP 100/52
[2018-08-23] MEDS: IPRATRPIUM/ALBUTEROL 0.5/2.5MG 3 ML NEBU. NEB SCH ×6 (04:00→23:40)
[2018-08-23 05:26] LABS: BASO # 0.1 x10^3/uL (0.0-0.2); BASO % 0 % (0-3); EOS # 0.3 x10^3/uL (0.0-0.7); EOS % 1 % (0-3); HEMATOCRIT 30.7 % (36.0-47.0); HEMOGLOBIN 9.3 g/dL (12.0-15.5); LYMPH # 1.4 x10^3/uL (1.0-4.8); LYMPH % 5 % (24-48); MEAN CORPUSCULAR HEMOGLOBIN 30 pg (25-35); MEAN CORPUSCULAR HGB CONC 30 g/dL (31-37); MEAN CORPUSCULAR VOLUME 100 fL (79-100); MONO # 1.4 x10^3/uL (0.0-1.1); MONO % 4 % (0-9); NEUT # 28.3 x10^3uL (1.8-7.7); NEUT % 90 % (31-73); PLATELET COUNT 335 x10^3/uL (140-400); RED BLOOD COUNT 3.07 x10^6/uL (3.50-5.40); WHITE BLOOD COUNT 31.5 x10^3/uL (4.0-11.0)
[2018-08-23 07:00] VITALS: BP 96/58
[2018-08-23] MEDS ORDERED: DEXTROSE ORAL GEL 15 GM TUBE. ONE (07:42)
[2018-08-23] MEDS: INSULIN LISPRO 300 UNITS/3 ML INSULN.PEN. SQ SCH ×6 (08:00→17:00)
[2018-08-23] MEDS: IV DEXTROSE 5 %-0.45 % NACL 1,000 ML IV SCH ×2 (08:00→23:36)
[2018-08-23] MEDS: CARVEDILOL 12.5 MG TABLET. PO SCH ×2 (08:00→17:56)
--- NOTE | 2018-08-23 08:00 | NUR ---
Morphine held due to lethargy.
[2018-08-23] MEDS: DEXTROSE 50% 25 GM / 50ML DISP.SYRIN. IV PRN (08:07)
--- NOTE | 2018-08-23 08:53 | PDOC ---
SURGICAL PROGRESS NOTE Subjective undergoing US during round continue abx Vital Signs Vital Signs Date Time Temp Pulse Resp B/P (MAP) Pulse Ox O2 Delivery O2 Flow Rate FiO2 08/23/18 07:03 94 Room Air 08/23/18 07:00 97.7 122 16 96/58 (71) 97.7 I&O Intake and Output 08/23/18 07:00 Intake Total 100 ml Balance 100 ml Intake Oral 100 ml Labs Laboratory Tests Test 08/21/18 11:59 08/21/18 12:17 08/21/18 16:47 08/21/18 20:45 Glucose (Fingerstick) 88 mg/dL (70-99) 96 mg/dL (70-99) 86 mg/dL (70-99) White Blood Count 42.8 x10^3/uL (4.0-11.0) Red Blood Count 2.88 x10^6/uL (3.50-5.40) Hemoglobin 8.9 g/dL (12.0-15.5) Hematocrit 28.1 % (36.0-47.0) Mean Corpuscular Volume 98 fL (79-100) Mean Corpuscular Hemoglobin 31 pg (25-35) Mean Corpuscular Hemoglobin Concent 32 g/dL (31-37) Red Cell Distribution Width 17.6 % (11.5-14.5) Platelet Count 355 x10^3/uL (140-400) Neutrophils (%) (Auto) 94 % (31-73) Lymphocytes (%) (Auto) 1 % (24-48) Monocytes (%) (Auto) 4 % (0-9) Eosinophils (%) (Auto) 1 % (0-3) Basophils (%) (Auto) 0 % (0-3) Neutrophils # (Auto) 40.1 x10^3uL (1.8-7.7) Lymphocytes # (Auto) 0.5 x10^3/uL (1.0-4.8) Monocytes # (Auto) 1.8 x10^3/uL (0.0-1.1) Eosinophils # (Auto) 0.3 x10^3/uL (0.0-0.7) Basophils # (Auto) 0.0 x10^3/uL (0.0-0.2) Segmented Neutrophils % 79 % (35-66) Band Neutrophils % 16 % (0-9) Monocytes % 4 % (0-10) Eosinophils % 1 % (0-5) Platelet Estimate Adequate (ADEQUATE) Polychromasia Slight Anisocytosis Slight Sodium Level 138 mmol/L (136-145) Potassium Level 3.3 mmol/L (3.5-5.1) Chloride Level 95 mmol/L (98-107) Carbon Dioxide Level 27 mmol/L (21-32) Anion Gap 16 (6-14) Blood Urea Nitrogen 20 mg/dL (7-20) Creatinine 2.7 mg/dL (0.6-1.0) Estimated GFR (Cockcroft-Gault) 18.5 BUN/Creatinine Ratio 7 (6-20) Glucose Level 95 mg/dL (70-99) Lactic Acid Level 1.2 mmol/L (0.4-2.0) Calcium Level 9.2 mg/dL (8.5-10.1) Total Bilirubin 0.8 mg/dL (0.2-1.0) Aspartate Amino Transf (AST/SGOT) 19 U/L (15-37) Alanine Aminotransferase (ALT/SGPT) 9 U/L (14-59) Alkaline Phosphatase 111 U/L (46-116) Total Protein 6.8 g/dL (6.4-8.2) Albumin 2.2 g/dL (3.4-5.0) Albumin/Globulin Ratio 0.5 (1.0-1.7) Test 08/22/18 03:25 08/22/18 07:14 08/22/18 11:29 08/22/18 16:55 White Blood Count 35.7 x10^3/uL (4.0-11.0) Red Blood Count 2.84 x10^6/uL (3.50-5.40) Hemoglobin 8.6 g/dL (12.0-15.5) Hematocrit 28.4 % (36.0-47.0) Mean Corpuscular Volume 100 fL (79-100) Mean Corpuscular Hemoglobin 30 pg (25-35) Mean Corpuscular Hemoglobin Concent 30 g/dL (31-37) Red Cell Distribution Width 18.1 % (11.5-14.5) Platelet Count 335 x10^3/uL (140-400) Neutrophils (%) (Auto) 92 % (31-73) Lymphocytes (%) (Auto) 3 % (24-48) Monocytes (%) (Auto) 5 % (0-9) Eosinophils (%) (Auto) 1 % (0-3) Basophils (%) (Auto) 0 % (0-3) Neutrophils # (Auto) 32.7 x10^3uL (1.8-7.7) Lymphocytes # (Auto) 1.0 x10^3/uL (1.0-4.8) Monocytes # (Auto) 1.7 x10^3/uL (0.0-1.1) Eosinophils # (Auto) 0.2 x10^3/uL (0.0-0.7) Basophils # (Auto) 0.1 x10^3/uL (0.0-0.2) Sodium Level 141 mmol/L (136-145) Potassium Level 3.8 mmol/L (3.5-5.1) Chloride Level 97 mmol/L (98-107) Carbon Dioxide Level 25 mmol/L (21-32) Anion Gap 19 (6-14) Blood Urea Nitrogen 26 mg/dL (7-20) Creatinine 3.6 mg/dL (0.6-1.0) Estimated GFR (Cockcroft-Gault) 13.3 BUN/Creatinine Ratio 7 (6-20) Glucose Level 71 mg/dL (70-99) Calcium Level 9.7 mg/dL (8.5-10.1) Total Bilirubin 0.8 mg/dL (0.2-1.0) Aspartate Amino Transf (AST/SGOT) 19 U/L (15-37) Alanine Aminotransferase (ALT/SGPT) 6 U/L (14-59) Alkaline Phosphatase 111 U/L (46-116) Total Protein 6.7 g/dL (6.4-8.2) Albumin 2.1 g/dL (3.4-5.0) Albumin/Globulin Ratio 0.5 (1.0-1.7) Glucose (Fingerstick) 75 mg/dL (70-99) 88 mg/dL (70-99) 96 mg/dL (70-99) Test 08/22/18 20:35 08/23/18 03:45 08/23/18 07:24 08/23/18 07:50 Glucose (Fingerstick) 93 mg/dL (70-99) 38 mg/dL (70-99) White Blood Count 31.5 x10^3/uL (4.0-11.0) Red Blood Count 3.07 x10^6/uL (3.50-5.40) Hemoglobin 9.3 g/dL (12.0-15.5) Hematocrit 30.7 % (36.0-47.0) Mean Corpuscular Volume 100 fL (79-100) Mean Corpuscular Hemoglobin 30 pg (25-35) Mean Corpuscular Hemoglobin Concent 30 g/dL (31-37) Red Cell Distribution Width 18.0 % (11.5-14.5) Platelet Count 335 x10^3/uL (140-400) Neutrophils (%) (Auto) 90 % (31-73) Lymphocytes (%) (Auto) 5 % (24-48) Monocytes (%) (Auto) 4 % (0-9) Eosinophils (%) (Auto) 1 % (0-3) Basophils (%) (Auto) 0 % (0-3) Neutrophils # (Auto) 28.3 x10^3uL (1.8-7.7) Lymphocytes # (Auto) 1.4 x10^3/uL (1.0-4.8) Monocytes # (Auto) 1.4 x10^3/uL (0.0-1.1) Eosinophils # (Auto) 0.3 x10^3/uL (0.0-0.7) Basophils # (Auto) 0.1 x10^3/uL (0.0-0.2) Glucose Level 52 mg/dL (70-99) Test 08/23/18 08:04 08/23/18 08:29 Glucose (Fingerstick) 41 mg/dL (70-99) 133 mg/dL (70-99) Laboratory Tests Test 08/22/18 11:29 08/22/18 16:55 08/22/18 20:35 08/23/18 03:45 Glucose (Fingerstick) 88 mg/dL (70-99) 96 mg/dL (70-99) 93 mg/dL (70-99) White Blood Count 31.5 x10^3/uL (4.0-11.0) Red Blood Count 3.07 x10^6/uL (3.50-5.40) Hemoglobin 9.3 g/dL (12.0-15.5) Hematocrit 30.7 % (36.0-47.0) Mean Corpuscular Volume 100 fL (79-100) Mean Corpuscular Hemoglobin 30 pg (25-35) Mean Corpuscular Hemoglobin Concent 30 g/dL (31-37) Red Cell Distribution Width 18.0 % (11.5-14.5) Platelet Count 335 x10^3/uL (140-400) Neutrophils (%) (Auto) 90 % (31-73) Lymphocytes (%) (Auto) 5 % (24-48) Monocytes (%) (Auto) 4 % (0-9) Eosinophils (%) (Auto) 1 % (0-3) Basophils (%) (Auto) 0 % (0-3) Neutrophils # (Auto) 28.3 x10^3uL (1.8-7.7) Lymphocytes # (Auto) 1.4 x10^3/uL (1.0-4.8) Monocytes # (Auto) 1.4 x10^3/uL (0.0-1.1) Eosinophils # (Auto) 0.3 x10^3/uL (0.0-0.7) Basophils # (Auto) 0.1 x10^3/uL (0.0-0.2) Test 08/23/18 07:24 08/23/18 07:50 08/23/18 08:04 08/23/18 08:29 Glucose (Fingerstick) 38 mg/dL (70-99) 41 mg/dL (70-99) 133 mg/dL (70-99) Glucose Level 52 mg/dL (70-99) MARIS MI APRN Aug 23, 2018 08:53
[2018-08-23] MEDS: POLYETHYLENE GLYCOL 3350 17 GM PACKET. PO SCH ×2 (09:00→20:55)
[2018-08-23] MEDS: MORPHINE ER 15 MG TABLET.ER PO SCH ×2 (09:00→21:00)
[2018-08-23] MEDS: LIDOCAINE (700MG/PATCH) PATCH. TD SCH (09:00)
[2018-08-23] MEDS ORDERED: DEXTROSE ORAL GEL 15 GM TUBE. PO PRN (09:15)
--- NOTE | 2018-08-23 09:45 | PDOC2 ---
CONSULT Date of Consult Date of Consult DATE: 08/23/18 TIME: 09:25 History of Present Illness Reason for Visit: This is a 52 year old female who is well known to our service. She has several comorbidities and frequent hospitalizations. We have performed a right fem-pop bypass on her (01/06/18), right groin sartorius muscle flap after extensive debridement, she has had a left BKA, has had right toe amputations. She returns to the hospital with rectal bleedm and constipation, which has reportedly since resolved. She is being seen ID, GI, gen surgery. She also has sacral decubitus ulcers that will likely require debridement once clinical condition improves. Her current complaints include left BKA stump pain. Pain is intermittent, Worse with movement or to the touch. We have been asked to see the patient regarding this and right leg wounds. These are chronic wounds, we have evaluated in the past. She takes ASA and Brilinta. She had severe leukocytosis on presentation, without lactic acidosis. Past Medical History Cardiovascular: AFIB, CAD, CHF, HTN, IA, Hyperlipidemia, Other Pulmonary: Asthma, Bronchitis, COPD, Pneumonia, Other CENTRAL NERVOUS SYSTEM: Periperal neuropathy GI: Irritable bowel disease, Peptic Ulcer disease, Other Heme/Onc: Anemia NOS Hepatobiliary: No pertinent hx Psych: Anxiety, Depression Musculoskeletal: Osteoarthritis Rheumatologic: Fibromyalgia Infectious disease: Other Renal/: Chronic renal failure Endocrine: Diabetes, Hyperparathyroidism Past Surgical History Past Surgical History: CABG, Cataract Removal, Hysterectomy, Other Family History Family History: Diabetes, Hypertension Social History Quit ALCOHOL: none Drugs: None Lives: Assisted Current Medications Current Medications Current Medications Sodium Chloride 1,000 ml @ 1,000 mls/hr 1X ONCE IV Last administered on 08/20/18at 04:28; Start 08/20/18 at 03:00; Stop 08/20/18 at 03:59; Status DC Cefepime HCl (Maxipime) 2 gm 1X ONCE IVP Last administered on 08/20/18at 04:28; Start 08/20/18 at 03:00; Stop 08/20/18 at 03:01; Status DC Ondansetron HCl (Zofran) 4 mg PRN Q8HRS PRN IV NAUSEA/VOMITING 1ST CHOICE Last administered on 08/20/18at 07:27; Start 08/20/18 at 05:00; Stop 08/21/18 at 04:59; Status DC Insulin Human Lispro (HumaLOG) 0-5 UNITS TIDWMEALS SQ ; Start 08/20/18 at 08:00 Dextrose (Dextrose 50%-Water Syringe) 12.5 gm PRN Q15MIN PRN IV SEE COMMENTS La st administered on 08/23/18 08:07; Start 08/20/18 at 05:00 Acetaminophen (Tylenol) 650 mg PRN Q6HRS PRN PO MILD PAIN / TEMP; Start 08/20/18 at 09:30 Amiodarone HCl (Cordarone) 200 mg DAILY PO Last administered on 08/22/18 09:14; Start 08/20/18 at 10:00 Aspirin (Children'S Aspirin) 81 mg DAILY PO Last administered on 08/22/18 09:14; Start 08/20/18 at 10:00 Carbamazepine (TEGretol) 200 mg BID PO Last administered on 08/22/18 20:40; Start 08/20/18 at 10:00 Carvedilol (Coreg) 12.5 mg BIDWMEALS PO Last administered on 08/22/18 09:14; Start 08/20/18 at 10:00 Docusate Sodium (Colace) 100 mg PRN Q8HRS PRN PO CONSTIPATION; Start 08/20/18 at 09:30 Famotidine (Pepcid) 20 mg HS PO Last administered on 08/22/18 20:40; Start 08/20/18 at 21:00 Guaifenesin (Mucinex) 600 mg BID PO Last administered on 08/22/18 20:40; Start 08/20/18 at 10:00 Insulin Glargine (Lantus) 15 units QHS SQ Last administered on 08/22/18 20:57; Start 08/20/18 at 21:00 Insulin Human Lispro (HumaLOG) 5 units TIDWMEALS SQ ; Start 08/20/18 at 12:00 Insulin Human Lispro (HumaLOG VIAL) 5 unit TIDWMEALS SQ ; Start 08/20/18 at 12:00; Status UNV Albuterol/ Ipratropium (Duoneb) 3 ml Q4HRS NEB Last administered on 08/23/18 07:03; Start 08/20/18 at 12:00 Albuterol Sulfate (Ventolin Neb Soln) 2.5 mg PRN Q4HRS PRN NEB SHORTNESS OF BREATH; Start 08/20/18 at 09:45 Morphine Sulfate (Ms Contin) 30 mg BID PO Last administered on 08/22/18 20:40; Start 08/20/18 at 10:00 Nystatin (Nystop) 1 susanna BID TP Last administered on 08/22/18 20:42; Start 08/20/18 at 10:00 Oxycodone/ Acetaminophen (Percocet 10/325) 1 tab PRN Q4HRS PRN PO MODERATE - SEVERE PAIN; Start 08/20/18 at 12:00 Prochlorperazine Maleate (Compazine) 10 mg PRN Q6HRS PRN PO NAUSEA/VOMITING; Start 08/20/18 at 09:30 Sevelamer Carbonate (Renvela) 1,600 mg TIDWMEALS PO Last administered on 08/21/18 17:12; Start 08/20/18 at 12:00 Ticagrelor (Brilinta) 90 mg BID PO Last administered on 08/22/18 20:40; Start 08/20/18 at 10:00 Atorvastatin Calcium (Lipitor) 80 mg QHS PO Last administered on 08/22/18 20:40; Start 08/20/18 at 21:00 Calcitriol (Rocaltrol) 0.25 mcg DAILY PO Last administered on 08/22/18 09:13; Start 08/20/18 at 10:00 Diltiazem HCl (Cardizem 24hr Cd) 120 mg DAILY PO Last administered on 08/22/18 09:13; Start 08/20/18 at 10:00 Erythromycin (E-Mycin) 250 mg BID PO Last administered on 08/22/18 20:40; Start 08/20/18 at 10:00 Hydralazine HCl (Apresoline) 10 mg PRN TID PRN PO ELEVATED BP; Start 08/20/18 at 14:00 Lidocaine (Lidoderm) 1 patch DAILY TD Last administered on 08/20/18at 10:58; Start 08/20/18 at 10:00 Non-Formulary Medication (Melatonin ) 9 mg QHS PO ; Start 08/20/18 at 21:00; Status UNV Niacin (Slo-Niacin) 250 mg BID PO Last administered on 08/22/18at 20:40; Start 08/20/18 at 10:00 Ondansetron HCl (Zofran Odt) 4 mg PRN Q6HRS PRN PO NAUSEA/VOMITING, 1ST CHOICE; Start 08/20/18 at 09:45 Polyethylene Glycol (miraLAX PACKET) 17 gm PRN Q8HRS PRN PO CONSTIPATION; Start 08/20/18 at 09:42; Stop 08/20/18 at 12:24; Status DC Sodium Chloride (Minto Saline Nasal) 1 susanna PRN BID PRN NS NASAL CONGESTION; Start 08/20/18 at 10:00 Hydromorphone HCl (Dilaudid) 1 mg PRN Q4HRS PRN IVP PAIN Last administered on 08/21/18at 05:42; Start 08/20/18 at 09:30 Miscellaneous (Lidoderm Patch Removal) 1 ea QHS MC Last administered on 08/20/18at 20:28; Start 08/20/18 at 21:00 Darbepoetin Mauricio (Aranesp) 60 mcg Fr SQ Last administered on 08/20/18at 20:25; Start 08/20/18 at 21:00 Polyethylene Glycol (miraLAX PACKET) 17 gm BID PO Last administered on 08/22/18at 20:39; Start 08/20/18 at 21:00 Lubiprostone (Amitiza) 24 mcg BIDWMEALS PO Last administered on 08/22/18at 09:13; Start 08/20/18 at 17:00 Sodium Chloride 1,000 ml @ 1,000 mls/hr Q1H PRN IV hypotension; Start 08/21/18 at 09:50; Stop 08/21/18 at 15:49; Status DC Info (PHARMACY MONITORING -- do not chart) 1 each PRN DAILY PRN MC SEE COMMENTS; Start 08/21/18 at 10:00; Status UNV Info (PHARMACY MONITORING -- do not chart) 1 each PRN DAILY PRN MC SEE COMMENTS; Start 08/21/18 at 10:00 Vancomycin HCl 500 mg/Sodium Chloride 100 ml @ 100 mls/hr 1X ONCE IV ; Start 08/21/18 at 12:00; Stop 08/21/18 at 12:59; Status UNV Vancomycin HCl 1.5 gm/Sodium Chloride 500 ml @ 250 mls/hr 1X ONCE IV Last administered on 08/21/18at 12:55; Start 08/21/18 at 10:15; Stop 08/21/18 at 12:14; Status DC Vancomycin HCl (Vanco Per Pharmacy) 1 each PRN DAILY PRN MC SEE COMMENTS Last administered on 08/22/18at 14:43; Start 08/22/18 at 11:15 Vancomycin HCl 500 mg/Sodium Chloride 100 ml @ 100 mls/hr TuThSa@1600 IV ; Start 08/24/18 at 16:00 Vancomycin HCl (Vancomycin Random Level) 1 each 1X ONCE MC ; Start 08/24/18 at 05:00; Stop 08/24/18 at 05:01 Glucose (Insta-Glucose) 15 gm STK-MED ONCE .ROUTE ; Start 08/23/18 at 07:42; Stop 08/23/18 at 07:43; Status DC Dextrose/Sodium Chloride 1,000 ml @ 75 mls/hr [id number] IV ; Start 08/23/18 at 08:45 Glucose (Insta-Glucose) 15 gm PRN Q15MIN PRN PO LOW BLOOD SUGAR; Start 08/23/18 at 09:15 Active Scripts Active Nystop (Nystatin) 60 Gm Powder 1 Susanna TP BID MDD 1 Morphine Sulfate Er (Morphine Sulfate) 30 Mg Tablet.er 1 Tab PO BID MDD 1 Tramadol Hcl 50 Mg Tablet 50 Mg PO Q4HRS PRN MDD 1 Brilinta (Ticagrelor) 90 Mg Tablet 90 Mg PO BID 30 Days Reported Zofran (Ondansetron Hcl) 4 Mg Tablet 1 Tab PO Q6HRS Lidocaine 1 Each Adh..patch 1 Each TP DAILY Duoneb 0.5-3(2.5) Mg/3 Ml (Albuterol/Ipratropium) 3 Ml Ampul.neb 3 Ml NEB Q4HRS Uriel-Tab (Erythromycin Base) 250 Mg Tablet.dr 250 Mg PO BID Diltiazem 24HR Cd (Diltiazem Hcl) 120 Mg Cap.er.24h 1 Cap PO DAILY Carvedilol (Carvedilol) 12.5 Mg Tablet 12.5 Mg PO BIDWMEALS Tylenol (Acetaminophen) 325 Mg Tablet 2 Tab PO PRN Q6HRS Oxycodone-Acetaminophen 10-325 (Oxycodone Hcl/Acetaminophen) 1 Each Tablet 1 Tab PO Q4HRS Renvela (Sevelamer Carbonate) 800 Mg Tablet 2 Tab PO TID Melatonin 3 Mg Tablet 9 Mg PO QHS Lantus Solostar (Insulin Glargine,Hum.rec.anlog) 100 Unit/1 Ml Insuln.pen 15 Unit SQ QHS Duoneb 0.5-3(2.5) Mg/3 Ml (Albuterol/Ipratropium) 3 Ml Ampul.neb 3 Ml NEB QID PRN Humalog (Insulin Lispro) 100 Unit/1 Ml Vial 0 SQ TID Humalog (Insulin Lispro) 100 Unit/1 Ml Vial 5 Unit SQ TIDWMEALS Guaifenesin 600 Mg Tablet.er 600 Mg PO BID Minto Saline (Sodium Chloride) 50 Ml [place] 1 [place] NS BID PRN Acetaminophen 500 Mg Tablet 650 Mg PO Q6HRS PRN Aspirin 81 Mg Tab.chew 1 Tab PO DAILY Calcitriol 0.25 Mcg Capsule 1 Cap PO DAILY Pepcid (Famotidine) 20 Mg Tablet 20 Mg PO HS Niacin 250 Mg Tablet 250 Mg PO BID Miralax (Polyethylene Glycol 3350) 17 Gm Powd.pack 1 Packet PO Q 8HRS PRN Hydralazine Hcl 10 Mg Tablet 1 Tab PO PRN TID PRN Ferrous Sulfate 325 Mg Tablet 1 Tab PO DAILY Diphenhydramine Hcl 50 Mg Capsule 1 Cap PO PRN Q8HRS PRN Prochlorperazine Maleate 10 Mg Tablet 1 Tab PO PRN Q6HRS PRN Tegretol (Carbamazepine) 200 Mg Tablet 1 Tab PO BID Amiodarone Hcl 200 Mg Tablet 1 Tab PO DAILY Lipitor (Atorvastatin Calcium) 80 Mg Tablet 80 Mg PO HS Docusate Sodium 100 Mg Capsule 1 Cap PO Q8HRS PRN Allergies Allergies: Coded Allergies: Sulfa (Sulfonamide Antibiotics) (Verified Allergy, Severe, Anaphylaxis, 03/10/18) meropenem (Verified Allergy, Intermediate, Rash, 03/10/18) Tolerates ancef piperacillin (Verified Allergy, Intermediate, Rash, 03/10/18) Tolerates ancef strawberry (Verified Allergy, Intermediate, 03/10/18) tazobactam (Verified Allergy, Intermediate, 03/10/18) cefazolin (Verified Adverse Reaction, Intermediate, Itching, 03/10/18) Causes Vomiting fentanyl (Verified Adverse Reaction, Intermediate, Nausea and Vomiting, 02/05/18) Vomiting ROS General: No: Other (fevers) PSYCHOLOGICAL ROS: YES: Depression Eyes: Yes Decreased vision Respiratory: No: Cough, Shortness of breath Cardiovascular: No Chest Pain Gastrointestinal: Yes Constipation Skin: Yes Dry Skin, Yes Skin Lesion Changes Physical Exam Physical Exam Afebrile, tachycardic, hypotensive Alert, somewhat drowsy, in no apparent distress Respirations nonlabored Left BKA stump with small fairly superficial wound, no exposed bone, minimal surrounding erythema. Without fluctuance, No pustular drainage. Right groin with evidence of powder, healed muscle flap skin graft, small sca ttered wounds on lower right leg, none of which show signs of necrosis or abscess. Skin dry. Cannot appreciate right pedal pulses. Vitals VITALS Vital Signs Date Time Temp Pulse Resp B/P (MAP) Pulse Ox O2 Delivery O2 Flow Rate FiO2 08/23/18 08:00 71 96/58 08/23/18 07:03 94 Room Air 08/23/18 07:00 97.7 16 97.7 Labs Labs Laboratory Tests Test 08/21/18 11:59 08/21/18 12:17 08/21/18 16:47 08/21/18 20:45 Glucose (Fingerstick) 88 mg/dL (70-99) 96 mg/dL (70-99) 86 mg/dL (70-99) White Blood Count 42.8 x10^3/uL (4.0-11.0) Red Blood Count 2.88 x10^6/uL (3.50-5.40) Hemoglobin 8.9 g/dL (12.0-15.5) Hematocrit 28.1 % (36.0-47.0) Mean Corpuscular Volume 98 fL (79-100) Mean Corpuscular Hemoglobin 31 pg (25-35) Mean Corpuscular Hemoglobin Concent 32 g/dL (31-37) Red Cell Distribution Width 17.6 % (11.5-14.5) Platelet Count 355 x10^3/uL (140-400) Neutrophils (%) (Auto) 94 % (31-73) Lymphocytes (%) (Auto) 1 % (24-48) Monocytes (%) (Auto) 4 % (0-9) Eosinophils (%) (Auto) 1 % (0-3) Basophils (%) (Auto) 0 % (0-3) Neutrophils # (Auto) 40.1 x10^3uL (1.8-7.7) Lymphocytes # (Auto) 0.5 x10^3/uL (1.0-4.8) Monocytes # (Auto) 1.8 x10^3/uL (0.0-1.1) Eosinophils # (Auto) 0.3 x10^3/uL (0.0-0.7) Basophils # (Auto) 0.0 x10^3/uL (0.0-0.2) Segmented Neutrophils % 79 % (35-66) Band Neutrophils % 16 % (0-9) Monocytes % 4 % (0-10) Eosinophils % 1 % (0-5) Platelet Estimate Adequate (ADEQUATE) Polychromasia Slight Anisocytosis Slight Sodium Level 138 mmol/L (136-145) Potassium Level 3.3 mmol/L (3.5-5.1) Chloride Level 95 mmol/L (98-107) Carbon Dioxide Level 27 mmol/L (21-32) Anion Gap 16 (6-14) Blood Urea Nitrogen 20 mg/dL (7-20) Creatinine 2.7 mg/dL (0.6-1.0) Estimated GFR (Cockcroft-Gault) 18.5 BUN/Creatinine Ratio 7 (6-20) Glucose Level 95 mg/dL (70-99) Lactic Acid Level 1.2 mmol/L (0.4-2.0) Calcium Level 9.2 mg/dL (8.5-10.1) Total Bilirubin 0.8 mg/dL (0.2-1.0) Aspartate Amino Transf (AST/SGOT) 19 U/L (15-37) Alanine Aminotransferase (ALT/SGPT) 9 U/L (14-59) Alkaline Phosphatase 111 U/L (46-116) Total Protein 6.8 g/dL (6.4-8.2) Albumin 2.2 g/dL (3.4-5.0) Albumin/Globulin Ratio 0.5 (1.0-1.7) Test 08/22/18 03:25 08/22/18 07:14 08/22/18 11:29 08/22/18 16:55 White Blood Count 35.7 x10^3/uL (4.0-11.0) Red Blood Count 2.84 x10^6/uL (3.50-5.40) Hemoglobin 8.6 g/dL (12.0-15.5) Hematocrit 28.4 % (36.0-47.0) Mean Corpuscular Volume 100 fL (79-100) Mean Corpuscular Hemoglobin 30 pg (25-35) Mean Corpuscular Hemoglobin Concent 30 g/dL (31-37) Red Cell Distribution Width 18.1 % (11.5-14.5) Platelet Count 335 x10^3/uL (140-400) Neutrophils (%) (Auto) 92 % (31-73) Lymphocytes (%) (Auto) 3 % (24-48) Monocytes (%) (Auto) 5 % (0-9) Eosinophils (%) (Auto) 1 % (0-3) Basophils (%) (Auto) 0 % (0-3) Neutrophils # (Auto) 32.7 x10^3uL (1.8-7.7) Lymphocytes # (Auto) 1.0 x10^3/uL (1.0-4.8) Monocytes # (Auto) 1.7 x10^3/uL (0.0-1.1) Eosinophils # (Auto) 0.2 x10^3/uL (0.0-0.7) Basophils # (Auto) 0.1 x10^3/uL (0.0-0.2) Sodium Level 141 mmol/L (136-145) Potassium Level 3.8 mmol/L (3.5-5.1) Chloride Level 97 mmol/L (98-107) Carbon Dioxide Level 25 mmol/L (21-32) Anion Gap 19 (6-14) Blood Urea Nitrogen 26 mg/dL (7-20) Creatinine 3.6 mg/dL (0.6-1.0) Estimated GFR (Cockcroft-Gault) 13.3 BUN/Creatinine Ratio 7 (6-20) Glucose Level 71 mg/dL (70-99) Calcium Level 9.7 mg/dL (8.5-10.1) Total Bilirubin 0.8 mg/dL (0.2-1.0) Aspartate Amino Transf (AST/SGOT) 19 U/L (15-37) Alanine Aminotransferase (ALT/SGPT) 6 U/L (14-59) Alkaline Phosphatase 111 U/L (46-116) Total Protein 6.7 g/dL (6.4-8.2) Albumin 2.1 g/dL (3.4-5.0) Albumin/Globulin Ratio 0.5 (1.0-1.7) Glucose (Fingerstick) 75 mg/dL (70-99) 88 mg/dL (70-99) 96 mg/dL (70-99) Test 08/22/18 20:35 08/23/18 03:45 08/23/18 07:24 08/23/18 07:50 Glucose (Fingerstick) 93 mg/dL (70-99) 38 mg/dL (70-99) White Blood Count 31.5 x10^3/uL (4.0-11.0) Red Blood Count 3.07 x10^6/uL (3.50-5.40) Hemoglobin 9.3 g/dL (12.0-15.5) Hematocrit 30.7 % (36.0-47.0) Mean Corpuscular Volume 100 fL (79-100) Mean Corpuscular Hemoglobin 30 pg (25-35) Mean Corpuscular Hemoglobin Concent 30 g/dL (31-37) Red Cell Distribution Width 18.0 % (11.5-14.5) Platelet Count 335 x10^3/uL (140-400) Neutrophils (%) (Auto) 90 % (31-73) Lymphocytes (%) (Auto) 5 % (24-48) Monocytes (%) (Auto) 4 % (0-9) Eosinophils (%) (Auto) 1 % (0-3) Basophils (%) (Auto) 0 % (0-3) Neutrophils # (Auto) 28.3 x10^3uL (1.8-7.7) Lymphocytes # (Auto) 1.4 x10^3/uL (1.0-4.8) Monocytes # (Auto) 1.4 x10^3/uL (0.0-1.1) Eosinophils # (Auto) 0.3 x10^3/uL (0.0-0.7) Basophils # (Auto) 0.1 x10^3/uL (0.0-0.2) Glucose Level 52 mg/dL (70-99) Test 08/23/18 08:04 08/23/18 08:29 Glucose (Fingerstick) 41 mg/dL (70-99) 133 mg/dL (70-99) Laboratory Tests Test 08/22/18 11:29 08/22/18 16:55 08/22/18 20:35 08/23/18 03:45 Glucose (Fingerstick) 88 mg/dL (70-99) 96 mg/dL (70-99) 93 mg/dL (70-99) White Blood Count 31.5 x10^3/uL (4.0-11.0) Red Blood Count 3.07 x10^6/uL (3.50-5.40) Hemoglobin 9.3 g/dL (12.0-15.5) Hematocrit 30.7 % (36.0-47.0) Mean Corpuscular Volume 100 fL (79-100) Mean Corpuscular Hemoglobin 30 pg (25-35) Mean Corpuscular Hemoglobin Concent 30 g/dL (31-37) Red Cell Distribution Width 18.0 % (11.5-14.5) Platelet Count 335 x10^3/uL (140-400) Neutrophils (%) (Auto) 90 % (31-73) Lymphocytes (%) (Auto) 5 % (24-48) Monocytes (%) (Auto) 4 % (0-9) Eosinophils (%) (Auto) 1 % (0-3) Basophils (%) (Auto) 0 % (0-3) Neutrophils # (Auto) 28.3 x10^3uL (1.8-7.7) Lymphocytes # (Auto) 1.4 x10^3/uL (1.0-4.8) Monocytes # (Auto) 1.4 x10^3/uL (0.0-1.1) Eosinophils # (Auto) 0.3 x10^3/uL (0.0-0.7) Basophils # (Auto) 0.1 x10^3/uL (0.0-0.2) Test 08/23/18 07:24 08/23/18 07:50 08/23/18 08:04 08/23/18 08:29 Glucose (Fingerstick) 38 mg/dL (70-99) 41 mg/dL (70-99) 133 mg/dL (70-99) Glucose Level 52 mg/dL (70-99) Assessment/Plan Assessment/Plan Pt seen and examined with Dr. Drake She is s/p right fem-BKpopliteal bypass in 12/2017. She has right lower leg wounds that do no require surgical debridement at this time, we recommend continued wound care. Continue IV abx per ID. We will get arterial US to ensure bypass is patent. She also has left BKA stump wound that appears superficial, no abscess or fluctuance indicated underlying infection, does not need surgical debridement at this time, recommend continue wound care. Keep wounds clean and dry. I independently saw and examined this patient today and discussed above with Ms Beto Rivero She has a right fem-pop bypass that required a previous anastomotic angioplasty about 4 months ago Her right foot wounds are very superficial Her left BKA stump has a very superficial wound. None of her wounds appear to need surgical debridement Will get a duplex of the right leg to evaluate the fem-pop bypass (it required intervention 4 months ago is due for a duplex) I spent over 55 minutes today on review of old charts, old images, exam and coordination of care exclusive of procedures. HONG OKEEFE Aug 23, 2018 09:45 ERROL DRAKE MD Aug 23, 2018 11:31
--- NOTE | 2018-08-23 10:08 | RAD ---
Right lower extremity arterial ultrasound, 08/23/2018: HISTORY: Check right femoral-popliteal graft Duplex evaluation of the major arteries in the right lower extremity was performed including grayscale, color-flow and spectral Doppler analysis. The examination was somewhat limited due to difficulties in patient positioning. A limited images of the right common femoral artery demonstrates a monophasic Doppler waveform. A patent superficial femoral artery was not visualized. A widely patent vascular graft is present in the right thigh. It demonstrates a monophasic Doppler waveforms with velocities ranging from 57 to 75 cm/s. Its inferior attachment was not clearly visualized. Patent anterior tibial and posterior tibial arteries are identified in the upper aspect of the right lower leg. A patent peroneal artery was not visualized. The inferior aspect of the lower leg and ankle could not be evaluated due to an overlying wrap. IMPRESSION: Limited exam demonstrating a patent arterial graft in the right thigh. Electronically signed by: Ronald Levy MD (08/23/2018 10:05 AM) [facility]
[2018-08-23] MEDS: ERYTHROMYCIN BASE 250 MG TABLET PO SCH ×2 (10:25→20:59)
[2018-08-23] MEDS: TICAGRELOR 90 MG TABLET. PO SCH ×2 (10:26→20:55)
[2018-08-23] MEDS: NIACIN ER 250 MG TABLET.ER PO SCH ×2 (10:26→20:54)
[2018-08-23] MEDS: CALCITRIOL 0.25 MCG CAPSULE. PO SCH (10:26)
[2018-08-23] MEDS: LUBIPROSTONE 8 MCG CAPSULE PO SCH ×2 (10:27→17:56)
[2018-08-23] MEDS: ASPIRIN CHEWABLE 81 MG TABLET. PO SCH (10:27)
[2018-08-23] MEDS: AMIODARONE HCL 200 MG TABLET. PO SCH (10:27)
[2018-08-23] MEDS: SEVELAMER CARBONATE 800 MG TABLET. PO SCH ×3 (10:28→17:56)
[2018-08-23] MEDS: carBAMazepine 200 MG TABLET PO SCH ×2 (10:28→20:55)
[2018-08-23] MEDS: NYSTATIN TOPICAL POWDER 15GM BOTTLE. TP SCH ×2 (10:29→21:00)
[2018-08-23 11:00] VITALS: BP 100/55
--- NOTE | 2018-08-23 11:33 | PDOC2 ---
PALLIATIVE CARE Palliative Care Note Palliative Care Consult requested by Dr. Morales to address goals of care/sepsis, poor prognosis Medical Assessment per medical record: Sepsis rectal bleeding opioid induced constipation, recent impaction, Dm1 CAD, ESRD chronic elevated troponin s/p BKA, acute on chronic pain, opioid dependence Patient responds slowly to verbal stimuli. Unable to provide information about her medical condition and reason for hospitalization. States she does have AD. Received permission to call her POA Negra Queen. Patient states she is "on Hospice" but not for end of life ---so she could get more help" Message to return call on Negra Queen's #[phone]. Copy of AD obtained from Medical Records and placed on her chart. Code Status; Full code. Will continue to try to talk with patient about her wishes and contact POA. 1200 Spoke with Nataliia from [facility] ([phone]). Patient going to dialysis 2 out of 3 times per week (refusing dialysis at times). Hospice Admitting Diagnosis was ESRD. Received permission to continue dialysis and treat symptoms. Was refusing dressing changes to wounds at times as well as refusing medications periodically. Per Nany from [facility] patient started services on 08/09/2017. 1730 Spoke with Negra MINA. Reviewed medical condition. Understands that Deepali would want "everything done" so she would want full resuscitation but "not on a machine for more than 30 days" Spoke with Chichi patient's sister (not POA) she agrees that patient would want full resuscitation. States she has "willed her body to [facility] " Informed that [facility] would need that information. Patient also has father, brother and sister in [place]. Chichi has spoke with them. Plan: Full Code per LEOPOLDO FLOR on record. LISSETTE ROLDAN Aug 23, 2018 11:33
--- NOTE | 2018-08-23 12:12 | PDOC ---
Infectious Disease Note Subjective Subjective Says not feeling bad but not feeling good either No F/C/SOA/lipscomb/N/V Vital Sign Vital Signs Vital Signs Date Time Temp Pulse Resp B/P (MAP) Pulse Ox O2 Delivery O2 Flow Rate FiO2 08/23/18 12:06 100 Room Air 08/23/18 11:00 97.9 112 14 100/55 (70) 97.9 Physical Exam PHYSICAL EXAM GENERAL: Sleeping, weak appearing HEENT: Normal conjunctivae. Oral cavity: Pharynx dry. NECK: Supple. LUNGS: Clear to auscultation. HEART: S1 and S2. Murmur present. ABDOMEN: Mildly distended, soft and nontender with bowel sounds present. PD catheter in place. EXTREMITIES: No gross edema or cyanosis. Previous left BKA. SKIN: Warm without rash. She has multiple wounds. NEUROLOGIC: Drowsy, answers questions appropriately PIV Labs Lab Laboratory Tests Test 08/22/18 16:55 08/22/18 20:35 08/23/18 03:45 08/23/18 07:24 Glucose (Fingerstick) 96 mg/dL (70-99) 93 mg/dL (70-99) 38 mg/dL (70-99) White Blood Count 31.5 x10^3/uL (4.0-11.0) Red Blood Count 3.07 x10^6/uL (3.50-5.40) Hemoglobin 9.3 g/dL (12.0-15.5) Hematocrit 30.7 % (36.0-47.0) Mean Corpuscular Volume 100 fL (79-100) Mean Corpuscular Hemoglobin 30 pg (25-35) Mean Corpuscular Hemoglobin Concent 30 g/dL (31-37) Red Cell Distribution Width 18.0 % (11.5-14.5) Platelet Count 335 x10^3/uL (140-400) Neutrophils (%) (Auto) 90 % (31-73) Lymphocytes (%) (Auto) 5 % (24-48) Monocytes (%) (Auto) 4 % (0-9) Eosinophils (%) (Auto) 1 % (0-3) Basophils (%) (Auto) 0 % (0-3) Neutrophils # (Auto) 28.3 x10^3uL (1.8-7.7) Lymphocytes # (Auto) 1.4 x10^3/uL (1.0-4.8) Monocytes # (Auto) 1.4 x10^3/uL (0.0-1.1) Eosinophils # (Auto) 0.3 x10^3/uL (0.0-0.7) Basophils # (Auto) 0.1 x10^3/uL (0.0-0.2) Test 08/23/18 07:50 08/23/18 08:04 08/23/18 08:29 08/23/18 11:06 Glucose Level 52 mg/dL (70-99) Glucose (Fingerstick) 41 mg/dL (70-99) 133 mg/dL (70-99) 114 mg/dL (70-99) Micro Microbiology 08/21/18 Blood Culture - Preliminary, Resulted NO GROWTH AFTER 1 DAY Objective Assessment GPC bacteremia (POA) Leukocytosis Multiple wounds Multiple abx allergies h/o c. diff Rectal bleeding and constipation CKD/HD via AV fistula Diabetes Plan Plan of Care vanc x 1 dose, 08/21. continue renal dosing Await GPC ID/susceptibilities Repeat BC from 08/21 pending Monitor WBC/temp Wound care team following DANDY LÓPEZ MD Aug 23, 2018 12:12
--- NOTE | 2018-08-23 12:44 | PDOC ---
PROGRESS NOTES Chief Complaint Chief Complaint sepsis rectal bleeding opioid induced constipation, recent impaction, relistor? GI consult Dm1 CAD, ESRD chronic elevated troponin s/p BKA, poorly mobile acute on chronic pain, opioid dependence Guarded prognosis History of Present Illness History of Present Illness cont abx wound care, consider debridement vasculopathy CBC in am ID consult following pt and ot as able Vitals Vitals Vital Signs Date Time Temp Pulse Resp B/P (MAP) Pulse Ox O2 Delivery O2 Flow Rate FiO2 08/23/18 12:06 100 Room Air 08/23/18 11:00 97.9 112 14 100/55 (70) 97.9 Physical Exam Physical Exam GENERAL: Sleeping, weak appearing HEENT: Normal conjunctivae. Oral cavity: Pharynx dry. NECK: Supple. LUNGS: Clear to auscultation. HEART: S1 and S2. Murmur present. ABDOMEN: Mildly distended, soft and nontender with bowel sounds present. PD catheter in place. EXTREMITIES: No gross edema or cyanosis. Previous left BKA. SKIN: Warm without rash. She has multiple wounds. NEUROLOGIC: Drowsy, answers questions appropriately PIV General: No acute distress Heart: Regular rate, Normal S1, Normal S2 Lungs: Clear, Other Abdomen: Soft, No tenderness Extremities: Other (amputation) Skin: Other (reviewed wound care pictures, necrotic wound on buttock, but ap pears superficial, no obvious cellultis, reported to not offload) Labs LABS Laboratory Tests Test 08/22/18 16:55 08/22/18 20:35 08/23/18 03:45 08/23/18 07:24 Glucose (Fingerstick) 96 mg/dL (70-99) 93 mg/dL (70-99) 38 mg/dL (70-99) White Blood Count 31.5 x10^3/uL (4.0-11.0) Red Blood Count 3.07 x10^6/uL (3.50-5.40) Hemoglobin 9.3 g/dL (12.0-15.5) Hematocrit 30.7 % (36.0-47.0) Mean Corpuscular Volume 100 fL (79-100) Mean Corpuscular Hemoglobin 30 pg (25-35) Mean Corpuscular Hemoglobin Concent 30 g/dL (31-37) Red Cell Distribution Width 18.0 % (11.5-14.5) Platelet Count 335 x10^3/uL (140-400) Neutrophils (%) (Auto) 90 % (31-73) Lymphocytes (%) (Auto) 5 % (24-48) Monocytes (%) (Auto) 4 % (0-9) Eosinophils (%) (Auto) 1 % (0-3) Basophils (%) (Auto) 0 % (0-3) Neutrophils # (Auto) 28.3 x10^3uL (1.8-7.7) Lymphocytes # (Auto) 1.4 x10^3/uL (1.0-4.8) Monocytes # (Auto) 1.4 x10^3/uL (0.0-1.1) Eosinophils # (Auto) 0.3 x10^3/uL (0.0-0.7) Basophils # (Auto) 0.1 x10^3/uL (0.0-0.2) Test 08/23/18 07:50 08/23/18 08:04 08/23/18 08:29 08/23/18 11:06 Glucose Level 52 mg/dL (70-99) Glucose (Fingerstick) 41 mg/dL (70-99) 133 mg/dL (70-99) 114 mg/dL (70-99) Comment Review of Relevant I have reviewed the following items bert (where applicable) has been applied. Labs Laboratory Tests Test 08/21/18 16:47 08/21/18 20:45 08/22/18 03:25 08/22/18 07:14 Glucose (Fingerstick) 96 mg/dL (70-99) 86 mg/dL (70-99) 75 mg/dL (70-99) White Blood Count 35.7 x10^3/uL (4.0-11.0) Red Blood Count 2.84 x10^6/uL (3.50-5.40) Hemoglobin 8.6 g/dL (12.0-15.5) Hematocrit 28.4 % (36.0-47.0) Mean Corpuscular Volume 100 fL (79-100) Mean Corpuscular Hemoglobin 30 pg (25-35) Mean Corpuscular Hemoglobin Concent 30 g/dL (31-37) Red Cell Distribution Width 18.1 % (11.5-14.5) Platelet Count 335 x10^3/uL (140-400) Neutrophils (%) (Auto) 92 % (31-73) Lymphocytes (%) (Auto) 3 % (24-48) Monocytes (%) (Auto) 5 % (0-9) Eosinophils (%) (Auto) 1 % (0-3) Basophils (%) (Auto) 0 % (0-3) Neutrophils # (Auto) 32.7 x10^3uL (1.8-7.7) Lymphocytes # (Auto) 1.0 x10^3/uL (1.0-4.8) Monocytes # (Auto) 1.7 x10^3/uL (0.0-1.1) Eosinophils # (Auto) 0.2 x10^3/uL (0.0-0.7) Basophils # (Auto) 0.1 x10^3/uL (0.0-0.2) Sodium Level 141 mmol/L (136-145) Potassium Level 3.8 mmol/L (3.5-5.1) Chloride Level 97 mmol/L (98-107) Carbon Dioxide Level 25 mmol/L (21-32) Anion Gap 19 (6-14) Blood Urea Nitrogen 26 mg/dL (7-20) Creatinine 3.6 mg/dL (0.6-1.0) Estimated GFR (Cockcroft-Gault) 13.3 BUN/Creatinine Ratio 7 (6-20) Glucose Level 71 mg/dL (70-99) Calcium Level 9.7 mg/dL (8.5-10.1) Total Bilirubin 0.8 mg/dL (0.2-1.0) Aspartate Amino Transf (AST/SGOT) 19 U/L (15-37) Alanine Aminotransferase (ALT/SGPT) 6 U/L (14-59) Alkaline Phosphatase 111 U/L (46-116) Total Protein 6.7 g/dL (6.4-8.2) Albumin 2.1 g/dL (3.4-5.0) Albumin/Globulin Ratio 0.5 (1.0-1.7) Test 08/22/18 11:29 08/22/18 16:55 08/22/18 20:35 08/23/18 03:45 Glucose (Fingerstick) 88 mg/dL (70-99) 96 mg/dL (70-99) 93 mg/dL (70-99) White Blood Count 31.5 x10^3/uL (4.0-11.0) Red Blood Count 3.07 x10^6/uL (3.50-5.40) Hemoglobin 9.3 g/dL (12.0-15.5) Hematocrit 30.7 % (36.0-47.0) Mean Corpuscular Volume 100 fL (79-100) Mean Corpuscular Hemoglobin 30 pg (25-35) Mean Corpuscular Hemoglobin Concent 30 g/dL (31-37) Red Cell Distribution Width 18.0 % (11.5-14.5) Platelet Count 335 x10^3/uL (140-400) Neutrophils (%) (Auto) 90 % (31-73) Lymphocytes (%) (Auto) 5 % (24-48) Monocytes (%) (Auto) 4 % (0-9) Eosinophils (%) (Auto) 1 % (0-3) Basophils (%) (Auto) 0 % (0-3) Neutrophils # (Auto) 28.3 x10^3uL (1.8-7.7) Lymphocytes # (Auto) 1.4 x10^3/uL (1.0-4.8) Monocytes # (Auto) 1.4 x10^3/uL (0.0-1.1) Eosinophils # (Auto) 0.3 x10^3/uL (0.0-0.7) Basophils # (Auto) 0.1 x10^3/uL (0.0-0.2) Test 08/23/18 07:24 08/23/18 07:50 08/23/18 08:04 08/23/18 08:29 Glucose (Fingerstick) 38 mg/dL (70-99) 41 mg/dL (70-99) 133 mg/dL (70-99) Glucose Level 52 mg/dL (70-99) Test 08/23/18 11:06 Glucose (Fingerstick) 114 mg/dL (70-99) Laboratory Tests Test 08/22/18 16:55 08/22/18 20:35 08/23/18 03:45 08/23/18 07:24 Glucose (Fingerstick) 96 mg/dL (70-99) 93 mg/dL (70-99) 38 mg/dL (70-99) White Blood Count 31.5 x10^3/uL (4.0-11.0) Red Blood Count 3.07 x10^6/uL (3.50-5.40) Hemoglobin 9.3 g/dL (12.0-15.5) Hematocrit 30.7 % (36.0-47.0) Mean Corpuscular Volume 100 fL (79-100) Mean Corpuscular Hemoglobin 30 pg (25-35) Mean Corpuscular Hemoglobin Concent 30 g/dL (31-37) Red Cell Distribution Width 18.0 % (11.5-14.5) Platelet Count 335 x10^3/uL (140-400) Neutrophils (%) (Auto) 90 % (31-73) Lymphocytes (%) (Auto) 5 % (24-48) Monocytes (%) (Auto) 4 % (0-9) Eosinophils (%) (Auto) 1 % (0-3) Basophils (%) (Auto) 0 % (0-3) Neutrophils # (Auto) 28.3 x10^3uL (1.8-7.7) Lymphocytes # (Auto) 1.4 x10^3/uL (1.0-4.8) Monocytes # (Auto) 1.4 x10^3/uL (0.0-1.1) Eosinophils # (Auto) 0.3 x10^3/uL (0.0-0.7) Basophils # (Auto) 0.1 x10^3/uL (0.0-0.2) Test 08/23/18 07:50 08/23/18 08:04 08/23/18 08:29 08/23/18 11:06 Glucose Level 52 mg/dL (70-99) Glucose (Fingerstick) 41 mg/dL (70-99) 133 mg/dL (70-99) 114 mg/dL (70-99) Microbiology 08/21/18 Blood Culture - Preliminary, Resulted NO GROWTH AFTER 2 DAYS Medications Current Medications Sodium Chloride 1,000 ml @ 1,000 mls/hr 1X ONCE IV Last administered on 08/20/18at 04:28; Start 08/20/18 at 03:00; Stop 08/20/18 at 03:59; Status DC Cefepime HCl (Maxipime) 2 gm 1X ONCE IVP Last administered on 08/20/18 04:28; Start 08/20/18 at 03:00; Stop 08/20/18 at 03:01; Status DC Ondansetron HCl (Zofran) 4 mg PRN Q8HRS PRN IV NAUSEA/VOMITING 1ST CHOICE Last administered on 08/20/18 07:27; Start 08/20/18 at 05:00; Stop 08/21/18 at 04:59; Status DC Insulin Human Lispro (HumaLOG) 0-5 UNITS TIDWMEALS SQ ; Start 08/20/18 at 08:00 Dextrose (Dextrose 50%-Water Syringe) 12.5 gm PRN Q15MIN PRN IV SEE COMMENTS Last administered on 08/23/18 08:07; Start 08/20/18 at 05:00 Acetaminophen (Tylenol) 650 mg PRN Q6HRS PRN PO MILD PAIN / TEMP; Start 08/20/18 at 09:30 Amiodarone HCl (Cordarone) 200 mg DAILY PO Last administered on 08/23/18 10:27; Start 08/20/18 at 10:00 Aspirin (Children'S Aspirin) 81 mg DAILY PO Last administered on 08/23/18 10:27; Start 08/20/18 at 10:00 Carbamazepine (TEGretol) 200 mg BID PO Last administered on 08/23/18 10:28; Start 08/20/18 at 10:00 Carvedilol (Coreg) 12.5 mg BIDWMEALS PO Last administered on 08/22/18 09:14; Start 08/20/18 at 10:00 Docusate Sodium (Colace) 100 mg PRN Q8HRS PRN PO CONSTIPATION; Start 08/20/18 at 09:30 Famotidine (Pepcid) 20 mg HS PO Last administered on 08/22/18 20:40; Start 08/20/18 at 21:00 Guaifenesin (Mucinex) 600 mg BID PO Last administered on 08/23/18 10:26; Start 08/20/18 at 10:00 Insulin Glargine (Lantus) 15 units QHS SQ Last administered on 08/22/18 20:57; Start 08/20/18 at 21:00 Insulin Human Lispro (HumaLOG) 5 units TIDWMEALS SQ ; Start 08/20/18 at 12:00 Insulin Human Lispro (HumaLOG VIAL) 5 unit TIDWMEALS SQ ; Start 08/20/18 at 12:00; Status UNV Albuterol/ Ipratropium (Duoneb) 3 ml Q4HRS NEB Last administered on 08/23/18 11:50; Start 08/20/18 at 12:00 Albuterol Sulfate (Ventolin Neb Soln) 2.5 mg PRN Q4HRS PRN NEB SHORTNESS OF BREATH; Start 08/20/18 at 09:45 Morphine Sulfate (Ms Contin) 30 mg BID PO Last administered on 08/22/18 20:40; Start 08/20/18 at 10:00 Nystatin (Nystop) 1 susanna BID TP Last administered on 08/23/18 10:29; Start 08/20/18 at 10:00 Oxycodone/ Acetaminophen (Percocet 10/325) 1 tab PRN Q4HRS PRN PO MODERATE - SEVERE PAIN; Start 08/20/18 at 12:00 Prochlorperazine Maleate (Compazine) 10 mg PRN Q6HRS PRN PO NAUSEA/VOMITING; Start 08/20/18 at 09:30 Sevelamer Carbonate (Renvela) 1,600 mg TIDWMEALS PO Last administered on 08/23/18 10:28; Start 08/20/18 at 12:00 Ticagrelor (Brilinta) 90 mg BID PO Last administered on 08/23/18 10:26; Start 08/20/18 at 10:00 Atorvastatin Calcium (Lipitor) 80 mg QHS PO Last administered on 08/22/18 20:40; Start 08/20/18 at 21:00 Calcitriol (Rocaltrol) 0.25 mcg DAILY PO Last administered on 08/23/18 10:26; Start 08/20/18 at 10:00 Diltiazem HCl (Cardizem 24hr Cd) 120 mg DAILY PO Last administered on 08/23/18 10:26; Start 08/20/18 at 10:00 Erythromycin (E-Mycin) 250 mg BID PO Last administered on 08/23/18 10:25; Start 08/20/18 at 10:00 Hydralazine HCl (Apresoline) 10 mg PRN TID PRN PO ELEVATED BP; Start 08/20/18 at 14:00 Lidocaine (Lidoderm) 1 patch DAILY TD Last administered on 08/20/18at 10:58; Start 08/20/18 at 10:00 Non-Formulary Medication (Melatonin ) 9 mg QHS PO ; Start 08/20/18 at 21:00; Status UNV Niacin (Slo-Niacin) 250 mg BID PO Last administered on 08/23/18 10:26; Start 08/20/18 at 10:00 Ondansetron HCl (Zofran Odt) 4 mg PRN Q6HRS PRN PO NAUSEA/VOMITING, 1ST CHOICE; Start 08/20/18 at 09:45 Polyethylene Glycol (miraLAX PACKET) 17 gm PRN Q8HRS PRN PO CONSTIPATION; Start 08/20/18 at 09:42; Stop 08/20/18 at 12:24; Status DC Sodium Chloride (Aurora Saline Nasal) 1 susanna PRN BID PRN NS NASAL CONGESTION; Start 08/20/18 at 10:00 Hydromorphone HCl (Dilaudid) 1 mg PRN Q4HRS PRN IVP PAIN Last administered on 08/21/18 05:42; Start 08/20/18 at 09:30 Miscellaneous (Lidoderm Patch Removal) 1 ea QHS MC Last administered on 08/20/18at 20:28; Start 08/20/18 at 21:00 Darbepoetin Mauricio (Aranesp) 60 mcg Fr SQ Last administered on 08/20/18 20:25; Start 08/20/18 at 21:00 Polyethylene Glycol (miraLAX PACKET) 17 gm BID PO Last administered on 9at 20:39; Start 08/20/18 at 21:00 Lubiprostone (Amitiza) 24 mcg BIDWMEALS PO Last administered on 08/23/18 10:27; Start 08/20/18 at 17:00 Sodium Chloride 1,000 ml @ 1,000 mls/hr Q1H PRN IV hypotension; Start 08/21/18 at 09:50; Stop 08/21/18 at 15:49; Status DC Info (PHARMACY MONITORING -- do not chart) 1 each PRN DAILY PRN MC SEE COMMENTS; Start 08/21/18 at 10:00; Status UNV Info (PHARMACY MONITORING -- do not chart) 1 each PRN DAILY PRN MC SEE COMMENTS; Start 08/21/18 at 10:00 Vancomycin HCl 500 mg/Sodium Chloride 100 ml @ 100 mls/hr 1X ONCE IV ; Start 08/21/18 at 12:00; Stop 08/21/18 at 12:59; Status UNV Vancomycin HCl 1.5 gm/Sodium Chloride 500 ml @ 250 mls/hr 1X ONCE IV Last administered on 08/21/18at 12:55; Start 08/21/18 at 10:15; Stop 08/21/18 at 12:14; Status DC Vancomycin HCl (Vanco Per Pharmacy) 1 each PRN DAILY PRN MC SEE COMMENTS Last administered on 08/22/18at 14:43; Start 08/22/18 at 11:15 Vancomycin HCl 500 mg/Sodium Chloride 100 ml @ 100 mls/hr TuThSa@1600 IV ; Start 08/24/18 at 16:00 Vancomycin HCl (Vancomycin Random Level) 1 each 1X ONCE MC ; Start 08/24/18 at 05:00; Stop 08/24/18 at 05:01 Glucose (Insta-Glucose) 15 gm STK-MED ONCE .ROUTE ; Start 08/23/18 at 07:42; Stop 08/23/18 at 07:43; Status DC Dextrose/Sodium Chloride 1,000 ml @ 75 mls/hr [id number] IV Last administered on 08/23/18at 08:00; Start 08/23/18 at 08:45 Glucose (Insta-Glucose) 15 gm PRN Q15MIN PRN PO LOW BLOOD SUGAR; Start 08/23/18 at 09:15 Active Scripts Active Nystop (Nystatin) 60 Gm Powder 1 Susanna TP BID MDD 1 Morphine Sulfate Er (Morphine Sulfate) 30 Mg Tablet.er 1 Tab PO BID MDD 1 Tramadol Hcl 50 Mg Tablet 50 Mg PO Q4HRS PRN MDD 1 Brilinta (Ticagrelor) 90 Mg Tablet 90 Mg PO BID 30 Days Reported Zofran (Ondansetron Hcl) 4 Mg Tablet 1 Tab PO Q6HRS Lidocaine 1 Each Adh..patch 1 Each TP DAILY Duoneb 0.5-3(2.5) Mg/3 Ml (Albuterol/Ipratropium) 3 Ml Ampul.neb 3 Ml NEB Q4HRS Uriel-Tab (Erythromycin Base) 250 Mg Tablet.dr 250 Mg PO BID Diltiazem 24HR Cd (Diltiazem Hcl) 120 Mg Cap.er.24h 1 Cap PO DAILY Carvedilol (Carvedilol) 12.5 Mg Tablet 12.5 Mg PO BIDWMEALS Tylenol (Acetaminophen) 325 Mg Tablet 2 Tab PO PRN Q6HRS Oxycodone-Acetaminophen 10-325 (Oxycodone Hcl/Acetaminophen) 1 Each Tablet 1 Tab PO Q4HRS Renvela (Sevelamer Carbonate) 800 Mg Tablet 2 Tab PO TID Melatonin 3 Mg Tablet 9 Mg PO QHS Lantus Solostar (Insulin Glargine,Hum.rec.anlog) 100 Unit/1 Ml Insuln.pen 15 Unit SQ QHS Duoneb 0.5-3(2.5) Mg/3 Ml (Albuterol/Ipratropium) 3 Ml Ampul.neb 3 Ml NEB QID PRN Humalog (Insulin Lispro) 100 Unit/1 Ml Vial 0 SQ TID Humalog (Insulin Lispro) 100 Unit/1 Ml Vial 5 Unit SQ TIDWMEALS Guaifenesin 600 Mg Tablet.er 600 Mg PO BID Aurora Saline (Sodium Chloride) 50 Ml Donovan 1 Donovan NS BID PRN Acetaminophen 500 Mg Tablet 650 Mg PO Q6HRS PRN Aspirin 81 Mg Tab.chew 1 Tab PO DAILY Calcitriol 0.25 Mcg Capsule 1 Cap PO DAILY Pepcid (Famotidine) 20 Mg Tablet 20 Mg PO HS Niacin 250 Mg Tablet 250 Mg PO BID Miralax (Polyethylene Glycol 3350) 17 Gm Powd.pack 1 Packet PO Q 8HRS PRN Hydralazine Hcl 10 Mg Tablet 1 Tab PO PRN TID PRN Ferrous Sulfate 325 Mg Tablet 1 Tab PO DAILY Diphenhydramine Hcl 50 Mg Capsule 1 Cap PO PRN Q8HRS PRN Prochlorperazine Maleate 10 Mg Tablet 1 Tab PO PRN Q6HRS PRN Tegretol (Carbamazepine) 200 Mg Tablet 1 Tab PO BID Amiodarone Hcl 200 Mg Tablet 1 Tab PO DAILY Lipitor (Atorvastatin Calcium) 80 Mg Tablet 80 Mg PO HS Docusate Sodium 100 Mg Capsule 1 Cap PO Q8HRS PRN Vitals/I & O Vital Sign - Last 24 Hours 08/22/18 08/22/18 08/22/18 08/22/18 15:20 15:31 17:00 19:37 Temp 98.0 98.0 Pulse 109 109 Resp 18 B/P (MAP) 101/56 (71) 101/56 Pulse Ox 100 O2 Delivery Room Air Room Air Room Air 08/22/18 08/22/18 08/22/18 08/22/18 19:42 20:00 20:40 23:14 Temp 97.3 97.7 97.3 97.7 Pulse 100 Resp 16 12 B/P (MAP) 100/58 (72) 97/55 (69) Pulse Ox 100 O2 Delivery Room Air Room Air 08/22/18 08/23/18 08/23/18 08/23/18 23:59 00:45 03:29 07:00 Temp 97.4 97.7 97.4 97.7 Pulse 113 122 Resp 16 12 16 B/P (MAP) 100/52 (68) 96/58 (71) Pulse Ox 100 97 94 O2 Delivery Room Air Room Air Room Air Room Air 08/23/18 08/23/18 08/23/18 08/23/18 07:03 08:00 10:26 10:27 Pulse 71 71 71 B/P (MAP) 96/58 96/58 96/58 Pulse Ox 94 O2 Delivery Room Air 08/23/18 08/23/18 11:00 12:06 Temp 97.9 97.9 Pulse 112 Resp 14 B/P (MAP) 100/55 (70) Pulse Ox 92 100 O2 Delivery Room Air Room Air Intake and Output 08/22/18 08/22/18 08/23/18 14:59 22:59 06:59 Intake Total 0 ml 100 ml 0 ml Balance 0 ml 100 ml 0 ml Nutrition Consultation Dietary Evaluation: Recommendations by RD: Increase Calorie Intake, Protein supplementation Comments: continue to encourage intake REC mvi vit c for wounds offer nepro, ifeoma supplements Expected Outcomes/Goals: to meet > 50% est nutr needs Interpretation of weight loss: >10% in 6 months Malnutrition Findings: Body Fat Depletion (Non Severe: Mild Depletion Weight Status: Underweight ROMI GOSS MD Aug 23, 2018 12:44
--- NOTE | 2018-08-23 12:44 | NUR ---
RAVI following pt for anticipated dc needs. Chart reviewed and DW PC. RAVI confirmed pt is LTC resident at [facility] and was on hospice with [facility]. Jean from [facility] confirmed pt is able to return upon dc. Palliative care and ID following pt. Will continue to follow.
--- NOTE | 2018-08-23 12:49 | PDOC ---
Objective: Objective: D/w RN - no bleeding. Declining, palliative care involved. Vital Signs: Vital Signs Date Time Temp Pulse Resp B/P (MAP) Pulse Ox O2 Delivery O2 Flow Rate FiO2 08/23/18 12:06 100 Room Air 08/23/18 11:00 97.9 112 14 100/55 (70) 97.9 Labs: Laboratory Tests Test 08/22/18 16:55 08/22/18 20:35 08/23/18 03:45 08/23/18 07:24 Glucose (Fingerstick) 96 mg/dL 93 mg/dL 38 mg/dL White Blood Count 31.5 x10^3/uL Red Blood Count 3.07 x10^6/uL Hemoglobin 9.3 g/dL Hematocrit 30.7 % Mean Corpuscular Volume 100 fL Mean Corpuscular Hemoglobin 30 pg Mean Corpuscular Hemoglobin Concent 30 g/dL Red Cell Distribution Width 18.0 % Platelet Count 335 x10^3/uL Neutrophils (%) (Auto) 90 % Lymphocytes (%) (Auto) 5 % Monocytes (%) (Auto) 4 % Eosinophils (%) (Auto) 1 % Basophils (%) (Auto) 0 % Neutrophils # (Auto) 28.3 x10^3uL Lymphocytes # (Auto) 1.4 x10^3/uL Monocytes # (Auto) 1.4 x10^3/uL Eosinophils # (Auto) 0.3 x10^3/uL Basophils # (Auto) 0.1 x10^3/uL Test 08/23/18 07:50 08/23/18 08:04 08/23/18 08:29 08/23/18 11:06 Glucose Level 52 mg/dL Glucose (Fingerstick) 41 mg/dL 133 mg/dL 114 mg/dL PE: GEN: NAD - lunch tray untouched LUNGS: room air HEART: tachycardic NEURO/PSYCH: sleeping, not awakened A/P: Rectal bleeding - prior to admission, no recurrence, suspected stercoral ulcer w/ h/o constipation GPC bacteremia, sacral ulcer ESRD on HD (and has PD cath), PAD, CAD, DM, chronic anemia, non-compliance -- Await palliative care discussion. EDDY IGLESIAS Aug 23, 2018 12:49
--- NOTE | 2018-08-23 14:08 | NUR ---
0735 FSBS 37. Attempted to give IV dextrose, IV infiltrated. Pt awake. Gave some juice and oral glusoce 15. FSBS 41. Saline lock restarted after 4 attempts. IV dextrose given per protocal. Stat lab ordered for glucose. Result was 51. After IV dextrose, BG 133. Received orders from Dr Morales for D5 1/2 NS at 75/ hr. Fluids started.
[2018-08-23 15:00] VITALS: BP 112/61
--- NOTE | 2018-08-23 15:40 | PDOC ---
SUBJECTIVE ROS Appearing weak , responds slowly OBJECTIVE Vital Signs Vital Signs Date Time Temp Pulse Resp B/P (MAP) Pulse Ox O2 Delivery O2 Flow Rate FiO2 08/23/18 15:00 97.6 113 18 112/61 (78) 97 Room Air 97.6 I & 0 Intake and Output 08/23/18 06:59 Intake Total 100 ml Balance 100 ml Intake Oral 100 ml PHYSICAL EXAM Physical Exam GENERAL: NAD HEENT: Oral cavity: Pharynx dry. NECK: Supple. LUNGS: Clear to auscultation. HEART: S1 and S2. Murmur present. ABDOMEN: Mildly distended, soft and nontender with bowel sounds present. PD catheter in place. EXTREMITIES: No gross edema or cyanosis. Previous left BKA. SKIN: Warm without rash. She has multiple wounds. NEUROLOGIC: Drowsy, answers questions appropriately - No Morales DIAGNOSIS/ASSESSMENT Assessment & Plan ESRD - On HD TTS Currently No indication for HD today Was on PD , she refuses to remove the PD cathater Bacteremia /Leukocytosis /Multiple wounds ID managing Anemia- Chronic Rectal bleeding and constipation GI Following Diabetes Palliative consulted COMMENT/RELEVANT DATA Meds Current Medications Medications (Trade) Dose Ordered Sig/Martin Start Time Stop Time Status Last Admin Dose Admin Acetaminophen (Tylenol) 650 mg PRN Q6HRS PRN 08/20/18 09:30 Albuterol Sulfate (Ventolin Neb Soln) 2.5 mg PRN Q4HRS PRN 08/20/18 09:45 Albuterol/ Ipratropium (Duoneb) 3 ml Q4HRS 08/20/18 12:00 08/23/18 11:50 3 ML Amiodarone HCl (Cordarone) 200 mg DAILY 08/20/18 10:00 08/23/18 10:27 200 MG Aspirin (Children'S Aspirin) 81 mg DAILY 08/20/18 10:00 08/23/18 10:27 81 MG Atorvastatin Calcium (Lipitor) 80 mg QHS 08/20/18 21:00 08/22/18 20:40 80 MG Calcitriol (Rocaltrol) 0.25 mcg DAILY 08/20/18 10:00 08/23/18 10:26 0.25 MCG Carbamazepine (TEGretol) 200 mg BID 08/20/18 10:00 08/23/18 10:28 200 MG Carvedilol (Coreg) 12.5 mg BIDWMEALS 08/20/18 10:00 08/22/18 09:14 12.5 MG Cefepime HCl (Maxipime) 2 gm 1X ONCE 08/20/18 03:00 08/20/18 03:01 DC 08/20/18 04:28 2 GM Darbepoetin Mauricio (Aranesp) 60 mcg Fr 08/20/18 21:00 08/20/18 20:25 60 MCG Dextrose (Dextrose 50%-Water Syringe) 12.5 gm PRN Q15MIN PRN 08/20/18 05:00 08/23/18 08:07 25 GM Dextrose/Sodium Chloride 1,000 ml @ 75 mls/hr [id number] 08/23/18 08:45 08/23/18 08:00 75 MLS/HR Diltiazem HCl (Cardizem 24hr Cd) 120 mg DAILY 08/20/18 10:00 08/23/18 10:26 120 MG Docusate Sodium (Colace) 100 mg PRN Q8HRS PRN 08/20/18 09:30 Erythromycin (E-Mycin) 250 mg BID 08/20/18 10:00 08/23/18 10:25 250 MG Famotidine (Pepcid) 20 mg HS 08/20/18 21:00 08/22/18 20:40 20 MG Glucose (Insta-Glucose) 15 gm PRN Q15MIN PRN 08/23/18 09:15 Guaifenesin (Mucinex) 600 mg BID 08/20/18 10:00 08/23/18 10:26 600 MG Hydralazine HCl (Apresoline) 10 mg PRN TID PRN 08/20/18 14:00 Hydromorphone HCl (Dilaudid) 1 mg PRN Q4HRS PRN 08/20/18 09:30 08/21/18 05:42 1 MG Info (PHARMACY MONITORING -- do not chart) 1 each PRN DAILY PRN 08/21/18 10:00 Insulin Glargine (Lantus) 15 units QHS 08/20/18 21:00 08/22/18 20:57 15 UNITS Insulin Human Lispro (HumaLOG VIAL) 5 unit TIDWMEALS 08/20/18 12:00 UNV Insulin Human Lispro (HumaLOG) 5 units TIDWMEALS 08/20/18 12:00 Lidocaine (Lidoderm) 1 patch DAILY 08/20/18 10:00 08/20/18 10:58 1 PATCH Lubiprostone (Amitiza) 24 mcg BIDWMEALS 08/20/18 17:00 08/23/18 10:27 24 MCG Miscellaneous (Lidoderm Patch Removal) 1 ea QHS 08/20/18 21:00 08/20/18 20:28 1 EA Morphine Sulfate (Ms Contin) 30 mg BID 08/20/18 10:00 08/22/18 20:40 30 MG Niacin (Slo-Niacin) 250 mg BID 08/20/18 10:00 08/23/18 10:26 250 MG Non-Formulary Medication (Melatonin ) 9 mg QHS 08/20/18 21:00 UNV Nystatin (Nystop) 1 erich BID 08/20/18 10:00 08/23/18 10:29 1 ERICH Ondansetron HCl (Zofran Odt) 4 mg PRN Q6HRS PRN 08/20/18 09:45 Ondansetron HCl (Zofran) 4 mg PRN Q8HRS PRN 08/20/18 05:00 08/21/18 04:59 DC 08/20/18 07:27 4 MG Oxycodone/ Acetaminophen (Percocet 10/325) 1 tab PRN Q4HRS PRN 08/20/18 12:00 Polyethylene Glycol (miraLAX PACKET) 17 gm BID 08/20/18 21:00 08/22/18 20:39 17 GM Prochlorperazine Maleate (Compazine) 10 mg PRN Q6HRS PRN 08/20/18 09:30 Sevelamer Carbonate (Renvela) 1,600 mg TIDWMEALS 08/20/18 12:00 08/23/18 10:28 1,600 MG Sodium Chloride 1,000 ml @ 1,000 mls/hr Q1H PRN 08/21/18 09:50 08/21/18 15:49 DC Sodium Chloride ([place] Saline Nasal) 1 erich PRN BID PRN 08/20/18 10:00 Ticagrelor (Brilinta) 90 mg BID 08/20/18 10:00 08/23/18 10:26 90 MG Vancomycin HCl (Vanco Per Pharmacy) 1 each PRN DAILY PRN 08/22/18 11:15 08/22/18 14:43 1 EACH Vancomycin HCl (Vancomycin Random Level) 1 each 1X ONCE 08/24/18 05:00 08/24/18 05:01 Vancomycin HCl 1.5 gm/Sodium Chloride 500 ml @ 250 mls/hr 1X ONCE 08/21/18 10:15 08/21/18 12:14 DC 08/21/18 12:55 250 MLS/HR Vancomycin HCl 500 mg/Sodium Chloride 100 ml @ 100 mls/hr TuThSa@1600 08/24/18 16:00 Lab Laboratory Tests Test 08/22/18 16:55 08/22/18 20:35 08/23/18 03:45 08/23/18 07:24 Glucose (Fingerstick) 96 mg/dL (70-99) 93 mg/dL (70-99) 38 mg/dL (70-99) White Blood Count 31.5 x10^3/uL (4.0-11.0) Red Blood Count 3.07 x10^6/uL (3.50-5.40) Hemoglobin 9.3 g/dL (12.0-15.5) Hematocrit 30.7 % (36.0-47.0) Mean Corpuscular Volume 100 fL (79-100) Mean Corpuscular Hemoglobin 30 pg (25-35) Mean Corpuscular Hemoglobin Concent 30 g/dL (31-37) Red Cell Distribution Width 18.0 % (11.5-14.5) Platelet Count 335 x10^3/uL (140-400) Neutrophils (%) (Auto) 90 % (31-73) Lymphocytes (%) (Auto) 5 % (24-48) Monocytes (%) (Auto) 4 % (0-9) Eosinophils (%) (Auto) 1 % (0-3) Basophils (%) (Auto) 0 % (0-3) Neutrophils # (Auto) 28.3 x10^3uL (1.8-7.7) Lymphocytes # (Auto) 1.4 x10^3/uL (1.0-4.8) Monocytes # (Auto) 1.4 x10^3/uL (0.0-1.1) Eosinophils # (Auto) 0.3 x10^3/uL (0.0-0.7) Basophils # (Auto) 0.1 x10^3/uL (0.0-0.2) Test 08/23/18 07:50 08/23/18 08:04 08/23/18 08:29 08/23/18 11:06 Glucose Level 52 mg/dL (70-99) Glucose (Fingerstick) 41 mg/dL (70-99) 133 mg/dL (70-99) 114 mg/dL (70-99) Results All relevant outside records, renal labs, imaging studies, telemetry/EKG's were reviewed. HEMANT SCHAEFER MD Aug 23, 2018 15:40
--- NOTE | 2018-08-23 17:07 | NUR ---
Received call from Pts father. He was extreemly concerned about pts condition. Father gave me several contact numbers and reports that Chichi is her sister and here in town. He has been communicating with her about pts condition. Yunier is patients father [phone] Kishore is patients brother [phone] Nova is patients sister [phone] Chichi is patients sister who lives here in town [phone]
[2018-08-23] MEDS: oxyCODONE/APAP 10/325 1 TAB TABLET PO PRN (18:11)
[2018-08-23 20:00] VITALS: BP 92/66
[2018-08-23] MEDS: LACTOBACILLUS RHAMNOSUS GG 1 CAPSULE. PO SCH (20:54)
[2018-08-23] MEDS: FAMOTIDINE 20 MG TABLET. PO SCH (20:55)
[2018-08-23] MEDS: PATCH REMOVAL. MC SCH (20:57)
[2018-08-23] MEDS: ATORVASTATIN CALCIUM 40 MG TABLET. PO SCH (21:00)
[2018-08-23] MEDS: INSULIN GLARGINE 300 UNITS/3 ML INSULN.PEN. SQ SCH (21:00)
[2018-08-23 23:14] VITALS: BP 85/53
[2018-08-24 03:17] VITALS: BP 91/55
[2018-08-24] MEDS ORDERED: VANCOMYCIN RANDOM LEVEL. MC ONE (05:00)
[2018-08-24 06:26] LABS: BASO # 0.1 x10^3/uL (0.0-0.2); BASO % 0 % (0-3); EOS # 0.2 x10^3/uL (0.0-0.7); EOS % 1 % (0-3); HEMATOCRIT 27.7 % (36.0-47.0); HEMOGLOBIN 8.5 g/dL (12.0-15.5); LYMPH % 4 % (24-48); MEAN CORPUSCULAR HEMOGLOBIN 30 pg (25-35); MEAN CORPUSCULAR HGB CONC 31 g/dL (31-37); MEAN CORPUSCULAR VOLUME 98 fL (79-100); MONO # 1.2 x10^3/uL (0.0-1.1); MONO % 4 % (0-9); NEUT # 25.8 x10^3uL (1.8-7.7); NEUT % 91 % (31-73); PLATELET COUNT 289 x10^3/uL (140-400); RED BLOOD COUNT 2.82 x10^6/uL (3.50-5.40); RED CELL DISTRIBUTION WIDTH 17.9 % (11.5-14.5); WHITE BLOOD COUNT 28.3 x10^3/uL (4.0-11.0)
[2018-08-24 06:50] LABS: ALBUMIN 1.9 g/dL (3.4-5.0); ALBUMIN/GLOBULIN RATIO 0.5 (1.0-1.7); CALCIUM 8.8 mg/dL (8.5-10.1); CREATININE 5.4 mg/dL (0.6-1.0); GFR 8.3; PHOSPHORUS 5.1 mg/dL (2.6-4.7); POTASSIUM 3.6 mmol/L (3.5-5.1); TOTAL BILIRUBIN 0.8 mg/dL (0.2-1.0); TOTAL PROTEIN 6.1 g/dL (6.4-8.2)
[2018-08-24 07:05] VITALS: BP 112/58
[2018-08-24] MEDS ORDERED: IV NORMAL SALINE 1000ML BAG 1,000 ML IV PRN ×2 (07:28)
[2018-08-24] MEDS ORDERED: diphenhydrAMINE 50 MG/ML VIAL IV PRN ×2 (07:30)
[2018-08-24] MEDS ORDERED: ALBUMIN HUMAN 25% 200 ML IV PRN (07:30)
[2018-08-24] MEDS ORDERED: ACETAMINOPHEN 500 MG TABLET PO PRN (07:30)
[2018-08-24] MEDS ORDERED: DIALYSIS PATIENT. MC PRN (07:30)
[2018-08-24] MEDS: IPRATRPIUM/ALBUTEROL 0.5/2.5MG 3 ML NEBU. NEB SCH ×5 (07:34→23:23)
--- NOTE | 2018-08-24 07:50 | NUR ---
Pt taken to dialysis per bed.
[2018-08-24] MEDS: INSULIN LISPRO 300 UNITS/3 ML INSULN.PEN. SQ SCH ×6 (08:00→18:17)
[2018-08-24] MEDS: SEVELAMER CARBONATE 800 MG TABLET. PO SCH ×3 (08:00→18:15)
[2018-08-24] MEDS: VANCOMYCIN PER PHARMACY MC PRN ×2 (08:42→16:50)
--- NOTE | 2018-08-24 08:46 | NUR ---
Pharmacy Vancomycin Dosing Note S:Consulted to monitor and dose vancomycin started 08/21/18. O:JAMAL BOSE is a 52 year old F with Bacteremia CHRONIC WOUNDS . Height: 5 feet, 8 inches Weight: 25.434789 kg [place] Body Weight: 63.90 Adjusted Body Weight: 61.02 Dosing Weight: Other Antibiotics: LABS: Last BUN: 26 Last Creatinine: 3.6 HD Creatinine Clearance: DIALYSIS TuThSa mL/min Last WBC: 28.3 Last Procalcitonin: - Tmax (past 24 hours): 98.3 Microbiology: 08/21 GPC 2 I/O: 490/0 Drug Levels: Last Random level: 19.6 on 08/24/18 at 0440 Last dose given 08/21/18 at 1255 Vancomycin Dosing: Loading Dose: x1 Dosing Weight: Target Trough: 10-20 A: Based on: THERAPEUTIC PRE-HD LEVEL, P: 1. Give Vancomycin 500 mg IV AFTER HD SESSIONS TTS 2. Follow up Random level as needed 3. Pharmacy will continue to monitor, follow and adjust therapy as needed. JUJU ESPITIA [facility], 08/24/18 [id number]
[2018-08-24] MEDS: MORPHINE ER 15 MG TABLET.ER PO SCH ×2 (09:00→21:33)
[2018-08-24] MEDS: NYSTATIN TOPICAL POWDER 15GM BOTTLE. TP SCH ×2 (09:00→21:35)
[2018-08-24] MEDS: NIACIN ER 250 MG TABLET.ER PO SCH ×2 (09:00→21:33)
[2018-08-24] MEDS: LACTOBACILLUS RHAMNOSUS GG 1 CAPSULE. PO SCH ×2 (09:00→21:32)
[2018-08-24] MEDS: CALCITRIOL 0.25 MCG CAPSULE. PO SCH (09:00)
[2018-08-24] MEDS: TICAGRELOR 90 MG TABLET. PO SCH ×2 (09:00→21:33)
[2018-08-24] MEDS: POLYETHYLENE GLYCOL 3350 17 GM PACKET. PO SCH ×2 (09:00→21:34)
--- NOTE | 2018-08-24 09:35 | PDOC ---
Provider Note Provider Note Arterial doppler ordered yesterday, showing patent right anterior and posterior tib, and patent thigh bypass, did not evaluate lower leg bypass. By exam bypass appears patent, patent anterior and posterior tib and no signs of ischemia. No surigcal intervention needed, continue recommendations as written in full consult note yesterday. We will sign off at this point, Ms. Rosenbaum will follow up with Dr. Reina in our office in 2-3 weeks. Thank you for consult, please do not hesitate to contact us with further questions. HONG OKEEFE Aug 24, 2018 09:35
[2018-08-24] MEDS: IV DEXTROSE 5 %-0.45 % NACL 1,000 ML IV SCH ×2 (11:25→18:21)
[2018-08-24 11:59] VITALS: BP 124/77
--- NOTE | 2018-08-24 12:00 | PDOC ---
SURGICAL PROGRESS NOTE Subjective seen during dialysis complaints of all over pain Vital Signs Vital Signs Date Time Temp Pulse Resp B/P (MAP) Pulse Ox O2 Delivery O2 Flow Rate FiO2 08/24/18 07:34 97 Room Air 08/24/18 07:05 99.7 118 18 112/58 (76) 99.7 I&O Intake and Output 08/24/18 07:00 Intake Total 490 ml Output Total 0 ml Balance 490 ml Intake Oral 490 ml Output Urine Total 0 ml General: Cooperative, No acute distress Skin: Other (reviewed pictures of wounds--right buttock with necrosis to wound) Labs Laboratory Tests Test 08/22/18 16:55 08/22/18 20:35 08/23/18 03:45 08/23/18 07:24 Glucose (Fingerstick) 96 mg/dL (70-99) 93 mg/dL (70-99) 38 mg/dL (70-99) White Blood Count 31.5 x10^3/uL (4.0-11.0) Red Blood Count 3.07 x10^6/uL (3.50-5.40) Hemoglobin 9.3 g/dL (12.0-15.5) Hematocrit 30.7 % (36.0-47.0) Mean Corpuscular Volume 100 fL (79-100) Mean Corpuscular Hemoglobin 30 pg (25-35) Mean Corpuscular Hemoglobin Concent 30 g/dL (31-37) Red Cell Distribution Width 18.0 % (11.5-14.5) Platelet Count 335 x10^3/uL (140-400) Neutrophils (%) (Auto) 90 % (31-73) Lymphocytes (%) (Auto) 5 % (24-48) Monocytes (%) (Auto) 4 % (0-9) Eosinophils (%) (Auto) 1 % (0-3) Basophils (%) (Auto) 0 % (0-3) Neutrophils # (Auto) 28.3 x10^3uL (1.8-7.7) Lymphocytes # (Auto) 1.4 x10^3/uL (1.0-4.8) Monocytes # (Auto) 1.4 x10^3/uL (0.0-1.1) Eosinophils # (Auto) 0.3 x10^3/uL (0.0-0.7) Basophils # (Auto) 0.1 x10^3/uL (0.0-0.2) Test 08/23/18 07:50 08/23/18 08:04 08/23/18 08:29 08/23/18 11:06 Glucose Level 52 mg/dL (70-99) Glucose (Fingerstick) 41 mg/dL (70-99) 133 mg/dL (70-99) 114 mg/dL (70-99) Test 08/23/18 16:39 08/23/18 20:35 08/24/18 04:40 08/24/18 07:09 Glucose (Fingerstick) 80 mg/dL (70-99) 87 mg/dL (70-99) 150 mg/dL (70-99) White Blood Count 28.3 x10^3/uL (4.0-11.0) Red Blood Count 2.82 x10^6/uL (3.50-5.40) Hemoglobin 8.5 g/dL (12.0-15.5) Hematocrit 27.7 % (36.0-47.0) Mean Corpuscular Volume 98 fL (79-100) Mean Corpuscular Hemoglobin 30 pg (25-35) Mean Corpuscular Hemoglobin Concent 31 g/dL (31-37) Red Cell Distribution Width 17.9 % (11.5-14.5) Platelet Count 289 x10^3/uL (140-400) Neutrophils (%) (Auto) 91 % (31-73) Lymphocytes (%) (Auto) 4 % (24-48) Monocytes (%) (Auto) 4 % (0-9) Eosinophils (%) (Auto) 1 % (0-3) Basophils (%) (Auto) 0 % (0-3) Neutrophils # (Auto) 25.8 x10^3uL (1.8-7.7) Lymphocytes # (Auto) 1.0 x10^3/uL (1.0-4.8) Monocytes # (Auto) 1.2 x10^3/uL (0.0-1.1) Eosinophils # (Auto) 0.2 x10^3/uL (0.0-0.7) Basophils # (Auto) 0.1 x10^3/uL (0.0-0.2) Sodium Level 137 mmol/L (136-145) Potassium Level 3.6 mmol/L (3.5-5.1) Chloride Level 96 mmol/L (98-107) Carbon Dioxide Level 27 mmol/L (21-32) Anion Gap 14 (6-14) Blood Urea Nitrogen 39 mg/dL (7-20) Creatinine 5.4 mg/dL (0.6-1.0) Estimated GFR (Cockcroft-Gault) 8.3 BUN/Creatinine Ratio 7 (6-20) Glucose Level 125 mg/dL (70-99) Calcium Level 8.8 mg/dL (8.5-10.1) Phosphorus Level 5.1 mg/dL (2.6-4.7) Total Bilirubin 0.8 mg/dL (0.2-1.0) Aspartate Amino Transf (AST/SGOT) 18 U/L (15-37) Alanine Aminotransferase (ALT/SGPT) 7 U/L (14-59) Alkaline Phosphatase 108 U/L (46-116) Total Protein 6.1 g/dL (6.4-8.2) Albumin 1.9 g/dL (3.4-5.0) Albumin/Globulin Ratio 0.5 (1.0-1.7) Random Vancomycin Level 19.6 mcg/mL Hepatitis B Surface Antigen Nonreactive (Nonreactive) Laboratory Tests Test 08/23/18 16:39 08/23/18 20:35 08/24/18 04:40 08/24/18 07:09 Glucose (Fingerstick) 80 mg/dL (70-99) 87 mg/dL (70-99) 150 mg/dL (70-99) White Blood Count 28.3 x10^3/uL (4.0-11.0) Red Blood Count 2.82 x10^6/uL (3.50-5.40) Hemoglobin 8.5 g/dL (12.0-15.5) Hematocrit 27.7 % (36.0-47.0) Mean Corpuscular Volume 98 fL (79-100) Mean Corpuscular Hemoglobin 30 pg (25-35) Mean Corpuscular Hemoglobin Concent 31 g/dL (31-37) Red Cell Distribution Width 17.9 % (11.5-14.5) Platelet Count 289 x10^3/uL (140-400) Neutrophils (%) (Auto) 91 % (31-73) Lymphocytes (%) (Auto) 4 % (24-48) Monocytes (%) (Auto) 4 % (0-9) Eosinophils (%) (Auto) 1 % (0-3) Basophils (%) (Auto) 0 % (0-3) Neutrophils # (Auto) 25.8 x10^3uL (1.8-7.7) Lymphocytes # (Auto) 1.0 x10^3/uL (1.0-4.8) Monocytes # (Auto) 1.2 x10^3/uL (0.0-1.1) Eosinophils # (Auto) 0.2 x10^3/uL (0.0-0.7) Basophils # (Auto) 0.1 x10^3/uL (0.0-0.2) Sodium Level 137 mmol/L (136-145) Potassium Level 3.6 mmol/L (3.5-5.1) Chloride Level 96 mmol/L (98-107) Carbon Dioxide Level 27 mmol/L (21-32) Anion Gap 14 (6-14) Blood Urea Nitrogen 39 mg/dL (7-20) Creatinine 5.4 mg/dL (0.6-1.0) Estimated GFR (Cockcroft-Gault) 8.3 BUN/Creatinine Ratio 7 (6-20) Glucose Level 125 mg/dL (70-99) Calcium Level 8.8 mg/dL (8.5-10.1) Phosphorus Level 5.1 mg/dL (2.6-4.7) Total Bilirubin 0.8 mg/dL (0.2-1.0) Aspartate Amino Transf (AST/SGOT) 18 U/L (15-37) Alanine Aminotransferase (ALT/SGPT) 7 U/L (14-59) Alkaline Phosphatase 108 U/L (46-116) Total Protein 6.1 g/dL (6.4-8.2) Albumin 1.9 g/dL (3.4-5.0) Albumin/Globulin Ratio 0.5 (1.0-1.7) Random Vancomycin Level 19.6 mcg/mL Hepatitis B Surface Antigen Nonreactive (Nonreactive) Assessment/Plan wound care will review with Dr Rush, ? debridement, poor overall condition MARIS MI WEDGER Aug 24, 2018 12:00
--- NOTE | 2018-08-24 12:34 | PDOC ---
SUBJECTIVE ROS Very weak, O2 sats low on arrival , Improved with Increasing o2 Seen on HD OBJECTIVE Vital Signs Vital Signs Date Time Temp Pulse Resp B/P (MAP) Pulse Ox O2 Delivery O2 Flow Rate FiO2 08/24/18 11:59 98.4 130 20 124/77 (93) 98 Room Air 98.4 I & 0 Intake and Output 08/24/18 07:00 Intake Total 490 ml Output Total 0 ml Balance 490 ml Intake Oral 490 ml Output Urine Total 0 ml PHYSICAL EXAM Physical Exam GENERAL: NAD HEENT: Oral cavity: Pharynx dry. NECK: Supple. LUNGS: Clear to auscultation. HEART: S1 and S2. Murmur present. ABDOMEN: Mildly distended, soft and nontender with bowel sounds present. PD catheter in place. EXTREMITIES: No gross edema or cyanosis. Previous left BKA. SKIN: Warm without rash. She has multiple wounds. NEUROLOGIC: Drowsy, answers questions appropriately - No Morales DIAGNOSIS/ASSESSMENT Assessment & Plan ESRD - On HD TTS Seen on HD, tolerating well, No issues related to HD Continue as ordered, Job Yap Was on PD , she refuses to remove the PD catheter Bacteremia /Leukocytosis /Multiple wounds ID managing Anemia- Chronic Rectal bleeding and constipation GI Following Diabetes Recommend Hospice COMMENT/RELEVANT DATA Meds Current Medications Medications (Trade) Dose Ordered Sig/Martin Start Time Stop Time Status Last Admin Dose Admin Acetaminophen (Tylenol) 500 mg 1X PRN PRN 08/24/18 07:30 08/25/18 07:29 Albumin Human 200 ml @ 200 mls/hr 1X PRN PRN 08/24/18 07:30 08/24/18 13:29 Albuterol Sulfate (Ventolin Neb Soln) 2.5 mg PRN Q4HRS PRN 08/20/18 09:45 Albuterol/ Ipratropium (Duoneb) 3 ml Q4HRS 08/20/18 12:00 08/24/18 07:34 3 ML Amiodarone HCl (Cordarone) 200 mg DAILY 08/20/18 10:00 08/23/18 10:27 200 MG Aspirin (Children'S Aspirin) 81 mg DAILY 08/20/18 10:00 08/23/18 10:27 81 MG Atorvastatin Calcium (Lipitor) 80 mg QHS 08/20/18 21:00 08/23/18 21:00 80 MG Calcitriol (Rocaltrol) 0.25 mcg DAILY 08/20/18 10:00 08/23/18 10:26 0.25 MCG Carbamazepine (TEGretol) 200 mg BID 08/20/18 10:00 08/23/18 20:55 200 MG Carvedilol (Coreg) 12.5 mg BIDWMEALS 08/20/18 10:00 08/23/18 17:56 12.5 MG Cefepime HCl (Maxipime) 2 gm 1X ONCE 08/20/18 03:00 08/20/18 03:01 DC 08/20/18 04:28 2 GM Darbepoetin Mauricio (Aranesp) 60 mcg Fr 08/20/18 21:00 08/20/18 20:25 60 MCG Dextrose (Dextrose 50%-Water Syringe) 12.5 gm PRN Q15MIN PRN 08/20/18 05:00 08/23/18 08:07 25 GM Dextrose/Sodium Chloride 1,000 ml @ 75 mls/hr [id number] 08/23/18 08:45 08/23/18 23:36 75 MLS/HR Diltiazem HCl (Cardizem 24hr Cd) 120 mg DAILY 08/20/18 10:00 08/23/18 10:26 120 MG Diphenhydramine HCl (Benadryl) 25 mg 1X PRN PRN 08/24/18 07:30 08/25/18 07:29 Docusate Sodium (Colace) 100 mg PRN Q8HRS PRN 08/20/18 09:30 Erythromycin (E-Mycin) 250 mg BID 08/20/18 10:00 08/23/18 20:59 250 MG Famotidine (Pepcid) 20 mg HS 08/20/18 21:00 08/23/18 20:55 20 MG Glucose (Insta-Glucose) 15 gm PRN Q15MIN PRN 08/23/18 09:15 Guaifenesin (Mucinex) 600 mg BID 08/20/18 10:00 08/23/18 21:00 600 MG Hydralazine HCl (Apresoline) 10 mg PRN TID PRN 08/20/18 14:00 Hydromorphone HCl (Dilaudid) 1 mg PRN Q4HRS PRN 08/20/18 09:30 08/21/18 05:42 1 MG Info (PHARMACY MONITORING -- do not chart) 1 each PRN DAILY PRN 08/24/18 07:30 UNV Insulin Glargine (Lantus) 15 units QHS 08/20/18 21:00 08/22/18 20:57 15 UNITS Insulin Human Lispro (HumaLOG VIAL) 5 unit TIDWMEALS 08/20/18 12:00 UNV Insulin Human Lispro (HumaLOG) 5 units TIDWMEALS 08/20/18 12:00 Lactobacillus Rhamnosus (Culturelle) 1 cap BID 08/23/18 21:00 08/23/18 20:54 1 CAP Lidocaine (Lidoderm) 1 patch DAILY 08/20/18 10:00 08/20/18 10:58 1 PATCH Lubiprostone (Amitiza) 24 mcg BIDWMEALS 08/20/18 17:00 08/23/18 17:56 24 MCG Miscellaneous (Lidoderm Patch Removal) 1 ea QHS 08/20/18 21:00 08/23/18 20:57 1 EA Morphine Sulfate (Ms Contin) 30 mg BID 08/20/18 10:00 08/23/18 21:00 30 MG Niacin (Slo-Niacin) 250 mg BID 08/20/18 10:00 08/23/18 20:54 250 MG Non-Formulary Medication (Melatonin ) 9 mg QHS 08/20/18 21:00 UNV Nystatin (Nystop) 1 erich BID 08/20/18 10:00 08/23/18 21:00 1 ERICH Ondansetron HCl (Zofran Odt) 4 mg PRN Q6HRS PRN 08/20/18 09:45 Ondansetron HCl (Zofran) 4 mg PRN Q8HRS PRN 08/20/18 05:00 08/21/18 04:59 DC 08/20/18 07:27 4 MG Oxycodone/ Acetaminophen (Percocet 10/325) 1 tab PRN Q4HRS PRN 08/20/18 12:00 08/23/18 18:11 1 TAB Polyethylene Glycol (miraLAX PACKET) 17 gm BID 08/20/18 21:00 08/23/18 20:55 17 GM Prochlorperazine Maleate (Compazine) 10 mg PRN Q6HRS PRN 08/20/18 09:30 Sevelamer Carbonate (Renvela) 1,600 mg TIDWMEALS 08/20/18 12:00 08/23/18 17:56 1,600 MG Sodium Chloride 1,000 ml @ 400 mls/hr Q2H30M PRN 08/24/18 07:28 08/24/18 19:27 Sodium Chloride ([place] Saline Nasal) 1 erich PRN BID PRN 08/20/18 10:00 Ticagrelor (Brilinta) 90 mg BID 08/20/18 10:00 08/23/18 20:55 90 MG Vancomycin HCl (Vanco Per Pharmacy) 1 each PRN DAILY PRN 08/22/18 11:15 08/24/18 08:42 1 EACH Vancomycin HCl (Vancomycin Random Level) 1 each 1X ONCE 08/24/18 05:00 08/24/18 05:01 DC 08/24/18 05:00 1 EACH Vancomycin HCl 1.5 gm/Sodium Chloride 500 ml @ 250 mls/hr 1X ONCE 08/21/18 10:15 08/21/18 12:14 DC 08/21/18 12:55 250 MLS/HR Vancomycin HCl 500 mg/Sodium Chloride 100 ml @ 100 mls/hr TuThSa@1600 08/24/18 16:00 Lab Laboratory Tests Test 08/23/18 16:39 08/23/18 20:35 08/24/18 04:40 08/24/18 07:09 Glucose (Fingerstick) 80 mg/dL (70-99) 87 mg/dL (70-99) 150 mg/dL (70-99) White Blood Count 28.3 x10^3/uL (4.0-11.0) Red Blood Count 2.82 x10^6/uL (3.50-5.40) Hemoglobin 8.5 g/dL (12.0-15.5) Hematocrit 27.7 % (36.0-47.0) Mean Corpuscular Volume 98 fL (79-100) Mean Corpuscular Hemoglobin 30 pg (25-35) Mean Corpuscular Hemoglobin Concent 31 g/dL (31-37) Red Cell Distribution Width 17.9 % (11.5-14.5) Platelet Count 289 x10^3/uL (140-400) Neutrophils (%) (Auto) 91 % (31-73) Lymphocytes (%) (Auto) 4 % (24-48) Monocytes (%) (Auto) 4 % (0-9) Eosinophils (%) (Auto) 1 % (0-3) Basophils (%) (Auto) 0 % (0-3) Neutrophils # (Auto) 25.8 x10^3uL (1.8-7.7) Lymphocytes # (Auto) 1.0 x10^3/uL (1.0-4.8) Monocytes # (Auto) 1.2 x10^3/uL (0.0-1.1) Eosinophils # (Auto) 0.2 x10^3/uL (0.0-0.7) Basophils # (Auto) 0.1 x10^3/uL (0.0-0.2) Sodium Level 137 mmol/L (136-145) Potassium Level 3.6 mmol/L (3.5-5.1) Chloride Level 96 mmol/L (98-107) Carbon Dioxide Level 27 mmol/L (21-32) Anion Gap 14 (6-14) Blood Urea Nitrogen 39 mg/dL (7-20) Creatinine 5.4 mg/dL (0.6-1.0) Estimated GFR (Cockcroft-Gault) 8.3 BUN/Creatinine Ratio 7 (6-20) Glucose Level 125 mg/dL (70-99) Calcium Level 8.8 mg/dL (8.5-10.1) Phosphorus Level 5.1 mg/dL (2.6-4.7) Total Bilirubin 0.8 mg/dL (0.2-1.0) Aspartate Amino Transf (AST/SGOT) 18 U/L (15-37) Alanine Aminotransferase (ALT/SGPT) 7 U/L (14-59) Alkaline Phosphatase 108 U/L (46-116) Total Protein 6.1 g/dL (6.4-8.2) Albumin 1.9 g/dL (3.4-5.0) Albumin/Globulin Ratio 0.5 (1.0-1.7) Random Vancomycin Level 19.6 mcg/mL Hepatitis B Surface Antigen Nonreactive (Nonreactive) Test 08/24/18 11:56 Glucose (Fingerstick) 114 mg/dL (70-99) Results All relevant outside records, renal labs, imaging studies, telemetry/EKG's were reviewed. HEMANT SCHAEFER MD Aug 24, 2018 12:34
[2018-08-24] MEDS: carBAMazepine 200 MG TABLET PO SCH ×2 (12:45→21:33)
[2018-08-24] MEDS: ERYTHROMYCIN BASE 250 MG TABLET PO SCH ×2 (12:45→21:33)
[2018-08-24] MEDS: oxyCODONE/APAP 10/325 1 TAB TABLET PO PRN (12:46)
[2018-08-24] MEDS: LUBIPROSTONE 8 MCG CAPSULE PO SCH ×2 (12:46→18:15)
[2018-08-24] MEDS: AMIODARONE HCL 200 MG TABLET. PO SCH (12:47)
[2018-08-24] MEDS: CARVEDILOL 12.5 MG TABLET. PO SCH ×2 (12:49→18:15)
[2018-08-24] MEDS: ASPIRIN CHEWABLE 81 MG TABLET. PO SCH (12:49)
[2018-08-24] MEDS: LIDOCAINE (700MG/PATCH) PATCH. TD SCH (12:51)
--- NOTE | 2018-08-24 12:54 | PDOC ---
Subjective: Subjective: Says "I'm having memory issues" and her hbebjki-yr-weh was supposed to come help her cut her food. Objective: Objective: Staff aware of memory issues. Vital Signs: Vital Signs Date Time Temp Pulse Resp B/P (MAP) Pulse Ox O2 Delivery O2 Flow Rate FiO2 08/24/18 11:59 98.4 130 20 124/77 (93) 98 Room Air 98.4 Labs: Laboratory Tests Test 08/23/18 16:39 08/23/18 20:35 08/24/18 04:40 08/24/18 07:09 Glucose (Fingerstick) 80 mg/dL 87 mg/dL 150 mg/dL White Blood Count 28.3 x10^3/uL Red Blood Count 2.82 x10^6/uL Hemoglobin 8.5 g/dL Hematocrit 27.7 % Mean Corpuscular Volume 98 fL Mean Corpuscular Hemoglobin 30 pg Mean Corpuscular Hemoglobin Concent 31 g/dL Red Cell Distribution Width 17.9 % Platelet Count 289 x10^3/uL Neutrophils (%) (Auto) 91 % Lymphocytes (%) (Auto) 4 % Monocytes (%) (Auto) 4 % Eosinophils (%) (Auto) 1 % Basophils (%) (Auto) 0 % Neutrophils # (Auto) 25.8 x10^3uL Lymphocytes # (Auto) 1.0 x10^3/uL Monocytes # (Auto) 1.2 x10^3/uL Eosinophils # (Auto) 0.2 x10^3/uL Basophils # (Auto) 0.1 x10^3/uL Sodium Level 137 mmol/L Potassium Level 3.6 mmol/L Chloride Level 96 mmol/L Carbon Dioxide Level 27 mmol/L Anion Gap 14 Blood Urea Nitrogen 39 mg/dL Creatinine 5.4 mg/dL Estimated GFR (Cockcroft-Gault) 8.3 BUN/Creatinine Ratio 7 Glucose Level 125 mg/dL Calcium Level 8.8 mg/dL Phosphorus Level 5.1 mg/dL Total Bilirubin 0.8 mg/dL Aspartate Amino Transf (AST/SGOT) 18 U/L Alanine Aminotransferase (ALT/SGPT) 7 U/L Alkaline Phosphatase 108 U/L Total Protein 6.1 g/dL Albumin 1.9 g/dL Albumin/Globulin Ratio 0.5 Random Vancomycin Level 19.6 mcg/mL Hepatitis B Surface Antigen Nonreactive Test 08/24/18 11:56 Glucose (Fingerstick) 114 mg/dL BLOOD CULTURE Preliminary NO GROWTH AFTER 3 DAYS PE: GEN: NAD LUNGS: CTAB HEART: RRR ABD: S/ND/NT NEURO/PSYCH: a bit confused A/P: Rectal bleeding - prior to admission Leukocytosis, GPC bacteremia, sacral ulcer ESRD, PAD, CAD, DM Chronic anemia -- Chronically ill - note plans for full code, etc. Continue same per GI. EDDY IGLESIAS Aug 24, 2018 12:54
--- NOTE | 2018-08-24 14:04 | PDOC ---
Infectious Disease Note Subjective Subjective Says not feeling bad but not feeling good either No F/C/SOA/lipscomb/N/V ROS ROS pt is feeling little better Vital Sign Vital Signs Vital Signs Date Time Temp Pulse Resp B/P (MAP) Pulse Ox O2 Delivery O2 Flow Rate FiO2 08/24/18 12:49 130 124/77 08/24/18 12:46 18 Room Air 08/24/18 11:59 98.4 98 98.4 Physical Exam PHYSICAL EXAM GENERAL: Sleeping, weak appearing HEENT: Normal conjunctivae. Oral cavity: Pharynx dry. NECK: Supple. LUNGS: Clear to auscultation. HEART: S1 and S2. Murmur present. ABDOMEN: Mildly distended, soft and nontender with bowel sounds present. PD catheter in place. EXTREMITIES: No gross edema or cyanosis. Previous left BKA. SKIN: Warm without rash. She has multiple wounds. NEUROLOGIC: Drowsy, answers questions appropriately PIV Labs Lab Laboratory Tests Test 08/23/18 16:39 08/23/18 20:35 08/24/18 04:40 08/24/18 07:09 Glucose (Fingerstick) 80 mg/dL (70-99) 87 mg/dL (70-99) 150 mg/dL (70-99) White Blood Count 28.3 x10^3/uL (4.0-11.0) Red Blood Count 2.82 x10^6/uL (3.50-5.40) Hemoglobin 8.5 g/dL (12.0-15.5) Hematocrit 27.7 % (36.0-47.0) Mean Corpuscular Volume 98 fL (79-100) Mean Corpuscular Hemoglobin 30 pg (25-35) Mean Corpuscular Hemoglobin Concent 31 g/dL (31-37) Red Cell Distribution Width 17.9 % (11.5-14.5) Platelet Count 289 x10^3/uL (140-400) Neutrophils (%) (Auto) 91 % (31-73) Lymphocytes (%) (Auto) 4 % (24-48) Monocytes (%) (Auto) 4 % (0-9) Eosinophils (%) (Auto) 1 % (0-3) Basophils (%) (Auto) 0 % (0-3) Neutrophils # (Auto) 25.8 x10^3uL (1.8-7.7) Lymphocytes # (Auto) 1.0 x10^3/uL (1.0-4.8) Monocytes # (Auto) 1.2 x10^3/uL (0.0-1.1) Eosinophils # (Auto) 0.2 x10^3/uL (0.0-0.7) Basophils # (Auto) 0.1 x10^3/uL (0.0-0.2) Sodium Level 137 mmol/L (136-145) Potassium Level 3.6 mmol/L (3.5-5.1) Chloride Level 96 mmol/L (98-107) Carbon Dioxide Level 27 mmol/L (21-32) Anion Gap 14 (6-14) Blood Urea Nitrogen 39 mg/dL (7-20) Creatinine 5.4 mg/dL (0.6-1.0) Estimated GFR (Cockcroft-Gault) 8.3 BUN/Creatinine Ratio 7 (6-20) Glucose Level 125 mg/dL (70-99) Calcium Level 8.8 mg/dL (8.5-10.1) Phosphorus Level 5.1 mg/dL (2.6-4.7) Total Bilirubin 0.8 mg/dL (0.2-1.0) Aspartate Amino Transf (AST/SGOT) 18 U/L (15-37) Alanine Aminotransferase (ALT/SGPT) 7 U/L (14-59) Alkaline Phosphatase 108 U/L (46-116) Total Protein 6.1 g/dL (6.4-8.2) Albumin 1.9 g/dL (3.4-5.0) Albumin/Globulin Ratio 0.5 (1.0-1.7) Random Vancomycin Level 19.6 mcg/mL Hepatitis B Surface Antigen Nonreactive (Nonreactive) Test 08/24/18 11:56 Glucose (Fingerstick) 114 mg/dL (70-99) Micro BLOOD CULTURE LC Preliminary Preliminary report BLD CULT RESULT 1 Preliminary Gram positive cocci Performed at: - [facility] [address], [place], [place] [id number] Test Analyst: NOLBERTO Mauricio MD, Phone: [phone] --- Objective Assessment GPC bacteremia (POA) Leukocytosis Multiple wounds Multiple abx allergies h/o c. diff Rectal bleeding and constipation CKD/HD via AV fistula Diabetes Plan Plan of Care vanc x 1 dose, 08/21. continue renal dosing Await GPC ID/susceptibilities Repeat BC from 08/21 pending Monitor WBC/temp Wound care team following cefepime DANDY LÓPEZ MD Aug 24, 2018 14:04
--- NOTE | 2018-08-24 14:16 | PDOC2 ---
PALLIATIVE CARE Palliative Care Note Palliative Care Patient more alert today after dialysis. Spoke with patient regarding her wishes. "I'm too young to " Reviewed her wishes per AD. "That's why I have one of those" "If my heart stops, pump me until I " Discussed who she would want to make decisions if she was not able to make her own decisions. Stated Negra can't handle it, I want Bruce and Chichi to make my decisions. Doesn't like the food served. Will check to have more liberal diet so she will eat. Plan is to go back to [facility] in [place] and continue with [facility]. "but not hospice to " Spoke with Meche Nuñez today --[facility]-- They will take her back when discharged and continue dialysis. Full Code, Full Aggressive Care. Geri RODRIGUES to assist in revising LISSETTE DORADO Aug 24, 2018 14:16
[2018-08-24] MEDS: CEFEPIME HCL IV Push 1 GM VIAL. IVP SCH (14:30)
[2018-08-24 15:00] VITALS: BP 128/75
[2018-08-24] MEDS: VANCOMYCIN 500 MG in IV NORMAL SALINE 100ML 100 ML IV SCH (16:00)
[2018-08-24 19:00] VITALS: BP 108/65
--- NOTE | 2018-08-24 20:00 | PDOC ---
PROGRESS NOTES Chief Complaint Chief Complaint sepsis rectal bleeding opioid induced constipation, recent impaction, relistor? 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 Oral cavity: Pharynx dry. NECK: Supple. LUNGS: Clear to auscultation. HEART: S1 and S2. Murmur present. EXTREMITIES: No gross edema or cyanosis. Previous left BKA. SKIN: Warm without rash. She has multiple wounds. NEUROLOGIC: answers questions appropriately General: Cooperative, No acute distress Heart: Regular rate, Normal S1, Normal S2 Lungs: Clear, Other Abdomen: Soft, No tenderness Extremities: Other (amputation) Skin: Other (reviewed pictures of wounds--right buttock with necrosis to wound) Labs LABS Laboratory Tests Test 08/23/18 20:35 08/24/18 04:40 08/24/18 07:09 08/24/18 11:56 Glucose (Fingerstick) 87 mg/dL (70-99) 150 mg/dL (70-99) 114 mg/dL (70-99) White Blood Count 28.3 x10^3/uL (4.0-11.0) Red Blood Count 2.82 x10^6/uL (3.50-5.40) Hemoglobin 8.5 g/dL (12.0-15.5) Hematocrit 27.7 % (36.0-47.0) Mean Corpuscular Volume 98 fL (79-100) Mean Corpuscular Hemoglobin 30 pg (25-35) Mean Corpuscular Hemoglobin Concent 31 g/dL (31-37) Red Cell Distribution Width 17.9 % (11.5-14.5) Platelet Count 289 x10^3/uL (140-400) Neutrophils (%) (Auto) 91 % (31-73) Lymphocytes (%) (Auto) 4 % (24-48) Monocytes (%) (Auto) 4 % (0-9) Eosinophils (%) (Auto) 1 % (0-3) Basophils (%) (Auto) 0 % (0-3) Neutrophils # (Auto) 25.8 x10^3uL (1.8-7.7) Lymphocytes # (Auto) 1.0 x10^3/uL (1.0-4.8) Monocytes # (Auto) 1.2 x10^3/uL (0.0-1.1) Eosinophils # (Auto) 0.2 x10^3/uL (0.0-0.7) Basophils # (Auto) 0.1 x10^3/uL (0.0-0.2) Sodium Level 137 mmol/L (136-145) Potassium Level 3.6 mmol/L (3.5-5.1) Chloride Level 96 mmol/L (98-107) Carbon Dioxide Level 27 mmol/L (21-32) Anion Gap 14 (6-14) Blood Urea Nitrogen 39 mg/dL (7-20) Creatinine 5.4 mg/dL (0.6-1.0) Estimated GFR (Cockcroft-Gault) 8.3 BUN/Creatinine Ratio 7 (6-20) Glucose Level 125 mg/dL (70-99) Calcium Level 8.8 mg/dL (8.5-10.1) Phosphorus Level 5.1 mg/dL (2.6-4.7) Total Bilirubin 0.8 mg/dL (0.2-1.0) Aspartate Amino Transf (AST/SGOT) 18 U/L (15-37) Alanine Aminotransferase (ALT/SGPT) 7 U/L (14-59) Alkaline Phosphatase 108 U/L (46-116) Total Protein 6.1 g/dL (6.4-8.2) Albumin 1.9 g/dL (3.4-5.0) Albumin/Globulin Ratio 0.5 (1.0-1.7) Random Vancomycin Level 19.6 mcg/mL Hepatitis B Surface Antigen Nonreactive (Nonreactive) Test 08/24/18 16:52 Glucose (Fingerstick) 179 mg/dL (70-99) Comment Review of Relevant I have reviewed the following items bert (where applicable) has been applied. Labs Laboratory Tests Test 08/22/18 20:35 08/23/18 03:45 08/23/18 07:24 08/23/18 07:50 Glucose (Fingerstick) 93 mg/dL (70-99) 38 mg/dL (70-99) White Blood Count 31.5 x10^3/uL (4.0-11.0) Red Blood Count 3.07 x10^6/uL (3.50-5.40) Hemoglobin 9.3 g/dL (12.0-15.5) Hematocrit 30.7 % (36.0-47.0) Mean Corpuscular Volume 100 fL (79-100) Mean Corpuscular Hemoglobin 30 pg (25-35) Mean Corpuscular Hemoglobin Concent 30 g/dL (31-37) Red Cell Distribution Width 18.0 % (11.5-14.5) Platelet Count 335 x10^3/uL (140-400) Neutrophils (%) (Auto) 90 % (31-73) Lymphocytes (%) (Auto) 5 % (24-48) Monocytes (%) (Auto) 4 % (0-9) Eosinophils (%) (Auto) 1 % (0-3) Basophils (%) (Auto) 0 % (0-3) Neutrophils # (Auto) 28.3 x10^3uL (1.8-7.7) Lymphocytes # (Auto) 1.4 x10^3/uL (1.0-4.8) Monocytes # (Auto) 1.4 x10^3/uL (0.0-1.1) Eosinophils # (Auto) 0.3 x10^3/uL (0.0-0.7) Basophils # (Auto) 0.1 x10^3/uL (0.0-0.2) Glucose Level 52 mg/dL (70-99) Test 08/23/18 08:04 08/23/18 08:29 08/23/18 11:06 08/23/18 16:39 Glucose (Fingerstick) 41 mg/dL (70-99) 133 mg/dL (70-99) 114 mg/dL (70-99) 80 mg/dL (70-99) Test 08/23/18 20:35 08/24/18 04:40 08/24/18 07:09 08/24/18 11:56 Glucose (Fingerstick) 87 mg/dL (70-99) 150 mg/dL (70-99) 114 mg/dL (70-99) White Blood Count 28.3 x10^3/uL (4.0-11.0) Red Blood Count 2.82 x10^6/uL (3.50-5.40) Hemoglobin 8.5 g/dL (12.0-15.5) Hematocrit 27.7 % (36.0-47.0) Mean Corpuscular Volume 98 fL (79-100) Mean Corpuscular Hemoglobin 30 pg (25-35) Mean Corpuscular Hemoglobin Concent 31 g/dL (31-37) Red Cell Distribution Width 17.9 % (11.5-14.5) Platelet Count 289 x10^3/uL (140-400) Neutrophils (%) (Auto) 91 % (31-73) Lymphocytes (%) (Auto) 4 % (24-48) Monocytes (%) (Auto) 4 % (0-9) Eosinophils (%) (Auto) 1 % (0-3) Basophils (%) (Auto) 0 % (0-3) Neutrophils # (Auto) 25.8 x10^3uL (1.8-7.7) Lymphocytes # (Auto) 1.0 x10^3/uL (1.0-4.8) Monocytes # (Auto) 1.2 x10^3/uL (0.0-1.1) Eosinophils # (Auto) 0.2 x10^3/uL (0.0-0.7) Basophils # (Auto) 0.1 x10^3/uL (0.0-0.2) Sodium Level 137 mmol/L (136-145) Potassium Level 3.6 mmol/L (3.5-5.1) Chloride Level 96 mmol/L (98-107) Carbon Dioxide Level 27 mmol/L (21-32) Anion Gap 14 (6-14) Blood Urea Nitrogen 39 mg/dL (7-20) Creatinine 5.4 mg/dL (0.6-1.0) Estimated GFR (Cockcroft-Gault) 8.3 BUN/Creatinine Ratio 7 (6-20) Glucose Level 125 mg/dL (70-99) Calcium Level 8.8 mg/dL (8.5-10.1) Phosphorus Level 5.1 mg/dL (2.6-4.7) Total Bilirubin 0.8 mg/dL (0.2-1.0) Aspartate Amino Transf (AST/SGOT) 18 U/L (15-37) Alanine Aminotransferase (ALT/SGPT) 7 U/L (14-59) Alkaline Phosphatase 108 U/L (46-116) Total Protein 6.1 g/dL (6.4-8.2) Albumin 1.9 g/dL (3.4-5.0) Albumin/Globulin Ratio 0.5 (1.0-1.7) Random Vancomycin Level 19.6 mcg/mL Hepatitis B Surface Antigen Nonreactive (Nonreactive) Test 08/24/18 16:52 Glucose (Fingerstick) 179 mg/dL (70-99) Laboratory Tests Test 08/23/18 20:35 08/24/18 04:40 08/24/18 07:09 08/24/18 11:56 Glucose (Fingerstick) 87 mg/dL (70-99) 150 mg/dL (70-99) 114 mg/dL (70-99) White Blood Count 28.3 x10^3/uL (4.0-11.0) Red Blood Count 2.82 x10^6/uL (3.50-5.40) Hemoglobin 8.5 g/dL (12.0-15.5) Hematocrit 27.7 % (36.0-47.0) Mean Corpuscular Volume 98 fL (79-100) Mean Corpuscular Hemoglobin 30 pg (25-35) Mean Corpuscular Hemoglobin Concent 31 g/dL (31-37) Red Cell Distribution Width 17.9 % (11.5-14.5) Platelet Count 289 x10^3/uL (140-400) Neutrophils (%) (Auto) 91 % (31-73) Lymphocytes (%) (Auto) 4 % (24-48) Monocytes (%) (Auto) 4 % (0-9) Eosinophils (%) (Auto) 1 % (0-3) Basophils (%) (Auto) 0 % (0-3) Neutrophils # (Auto) 25.8 x10^3uL (1.8-7.7) Lymphocytes # (Auto) 1.0 x10^3/uL (1.0-4.8) Monocytes # (Auto) 1.2 x10^3/uL (0.0-1.1) Eosinophils # (Auto) 0.2 x10^3/uL (0.0-0.7) Basophils # (Auto) 0.1 x10^3/uL (0.0-0.2) Sodium Level 137 mmol/L (136-145) Potassium Level 3.6 mmol/L (3.5-5.1) Chloride Level 96 mmol/L (98-107) Carbon Dioxide Level 27 mmol/L (21-32) Anion Gap 14 (6-14) Blood Urea Nitrogen 39 mg/dL (7-20) Creatinine 5.4 mg/dL (0.6-1.0) Estimated GFR (Cockcroft-Gault) 8.3 BUN/Creatinine Ratio 7 (6-20) Glucose Level 125 mg/dL (70-99) Calcium Level 8.8 mg/dL (8.5-10.1) Phosphorus Level 5.1 mg/dL (2.6-4.7) Total Bilirubin 0.8 mg/dL (0.2-1.0) Aspartate Amino Transf (AST/SGOT) 18 U/L (15-37) Alanine Aminotransferase (ALT/SGPT) 7 U/L (14-59) Alkaline Phosphatase 108 U/L (46-116) Total Protein 6.1 g/dL (6.4-8.2) Albumin 1.9 g/dL (3.4-5.0) Albumin/Globulin Ratio 0.5 (1.0-1.7) Random Vancomycin Level 19.6 mcg/mL Hepatitis B Surface Antigen Nonreactive (Nonreactive) Test 08/24/18 16:52 Glucose (Fingerstick) 179 mg/dL (70-99) Microbiology 08/21/18 Blood Culture - Preliminary, Resulted NO GROWTH AFTER 3 DAYS Medications Current Medications Sodium Chloride 1,000 ml @ 1,000 mls/hr 1X ONCE IV Last administered on 08/20/18at 04:28; Start 08/20/18 at 03:00; Stop 08/20/18 at 03:59; Status DC Cefepime HCl (Maxipime) 2 gm 1X ONCE IVP Last administered on 08/20/18 04:28; Start 08/20/18 at 03:00; Stop 08/20/18 at 03:01; Status DC Ondansetron HCl (Zofran) 4 mg PRN Q8HRS PRN IV NAUSEA/VOMITING 1ST CHOICE Last administered on 08/20/18 07:27; Start 08/20/18 at 05:00; Stop 08/21/18 at 04:59; Status DC Insulin Human Lispro (HumaLOG) 0-5 UNITS TIDWMEALS SQ ; Start 08/20/18 at 08:00 Dextrose (Dextrose 50%-Water Syringe) 12.5 gm PRN Q15MIN PRN IV SEE COMMENTS Last administered on 08/23/18 08:07; Start 08/20/18 at 05:00 Acetaminophen (Tylenol) 650 mg PRN Q6HRS PRN PO MILD PAIN / TEMP; Start 08/20/18 at 09:30 Amiodarone HCl (Cordarone) 200 mg DAILY PO Last administered on 08/24/18 12:47; Start 08/20/18 at 10:00 Aspirin (Children'S Aspirin) 81 mg DAILY PO Last administered on 08/24/18 12:49; Start 08/20/18 at 10:00 Carbamazepine (TEGretol) 200 mg BID PO Last administered on 08/24/18 12:45; Start 08/20/18 at 10:00 Carvedilol (Coreg) 12.5 mg BIDWMEALS PO Last administered on 08/24/18 18:15; Start 08/20/18 at 10:00 Docusate Sodium (Colace) 100 mg PRN Q8HRS PRN PO CONSTIPATION; Start 08/20/18 at 09:30 Famotidine (Pepcid) 20 mg HS PO Last administered on 08/23/18 20:55; Start 08/20/18 at 21:00 Guaifenesin (Mucinex) 600 mg BID PO Last administered on 08/23/18 21:00; Start 08/20/18 at 10:00 Insulin Glargine (Lantus) 15 units QHS SQ Last administered on 08/22/18 20:57; Start 08/20/18 at 21:00 Insulin Human Lispro (HumaLOG) 5 units TIDWMEALS SQ Last administered on 08/24/18 18:17; Start 08/20/18 at 12:00 Insulin Human Lispro (HumaLOG VIAL) 5 unit TIDWMEALS SQ ; Start 08/20/18 at 12:00; Status UNV Albuterol/ Ipratropium (Duoneb) 3 ml Q4HRS NEB Last administered on 08/24/18 15:30; Start 08/20/18 at 12:00 Albuterol Sulfate (Ventolin Neb Soln) 2.5 mg PRN Q4HRS PRN NEB SHORTNESS OF BREATH; Start 08/20/18 at 09:45 Morphine Sulfate (Ms Contin) 30 mg BID PO Last administered on 08/23/18 21:00; Start 08/20/18 at 10:00 Nystatin (Nystop) 1 susanna BID TP Last administered on 08/24/18 09:00; Start 08/20/18 at 10:00 Oxycodone/ Acetaminophen (Percocet 10/325) 1 tab PRN Q4HRS PRN PO MODERATE - SEVERE PAIN Last administered on 08/24/18 12:46; Start 08/20/18 at 12:00 Prochlorperazine Maleate (Compazine) 10 mg PRN Q6HRS PRN PO NAUSEA/VOMITING; Start 08/20/18 at 09:30 Sevelamer Carbonate (Renvela) 1,600 mg TIDWMEALS PO Last administered on 08/24/18 18:15; Start 08/20/18 at 12:00 Ticagrelor (Brilinta) 90 mg BID PO Last administered on 08/23/18 20:55; Start 08/20/18 at 10:00 Atorvastatin Calcium (Lipitor) 80 mg QHS PO Last administered on 08/23/18 21:00; Start 08/20/18 at 21:00 Calcitriol (Rocaltrol) 0.25 mcg DAILY PO Last administered on 08/23/18 10:26; Start 08/20/18 at 10:00 Diltiazem HCl (Cardizem 24hr Cd) 120 mg DAILY PO Last administered on 08/24/18 12:49; Start 08/20/18 at 10:00 Erythromycin (E-Mycin) 250 mg BID PO Last administered on 08/24/18 12:45; Start 08/20/18 at 10:00 Hydralazine HCl (Apresoline) 10 mg PRN TID PRN PO ELEVATED BP; Start 08/20/18 at 14:00 Lidocaine (Lidoderm) 1 patch DAILY TD Last administered on 08/24/18 12:51; Start 08/20/18 at 10:00 Non-Formulary Medication (Melatonin ) 9 mg QHS PO ; Start 08/20/18 at 21:00; Status UNV Niacin (Slo-Niacin) 250 mg BID PO Last administered on 08/23/18 20:54; Start 08/20/18 at 10:00 Ondansetron HCl (Zofran Odt) 4 mg PRN Q6HRS PRN PO NAUSEA/VOMITING, 1ST CHOICE; Start 08/20/18 at 09:45 Polyethylene Glycol (miraLAX PACKET) 17 gm PRN Q8HRS PRN PO CONSTIPATION; Start 08/20/18 at 09:42; Stop 08/20/18 at 12:24; Status DC Sodium Chloride ([place] Saline Nasal) 1 susanna PRN BID PRN NS NASAL CONGESTION; Start 08/20/18 at 10:00 Hydromorphone HCl (Dilaudid) 1 mg PRN Q4HRS PRN IVP PAIN Last administered on 08/21/18 05:42; Start 08/20/18 at 09:30 Miscellaneous (Lidoderm Patch Removal) 1 ea QHS MC Last administered on 08/23/18 20:57; Start 08/20/18 at 21:00 Darbepoetin Mauricio (Aranesp) 60 mcg Fr SQ Last administered on 08/20/18 20:25; Start 08/20/18 at 21:00 Polyethylene Glycol (miraLAX PACKET) 17 gm BID PO Last administered on 08/23/18 20:55; Start 08/20/18 at 21:00 Lubiprostone (Amitiza) 24 mcg BIDWMEALS PO Last administered on 08/24/18at 1 8:15; Start 08/20/18 at 17:00 Sodium Chloride 1,000 ml @ 1,000 mls/hr Q1H PRN IV hypotension; Start 08/21/18 at 09:50; Stop 08/21/18 at 15:49; Status DC Info (PHARMACY MONITORING -- do not chart) 1 each PRN DAILY PRN MC SEE COMMENTS; Start 08/21/18 at 10:00; Status UNV Info (PHARMACY MONITORING -- do not chart) 1 each PRN DAILY PRN MC SEE COMMENTS; Start 08/21/18 at 10:00 Vancomycin HCl 500 mg/Sodium Chloride 100 ml @ 100 mls/hr 1X ONCE IV ; Start 08/21/18 at 12:00; Stop 08/21/18 at 12:59; Status UNV Vancomycin HCl 1.5 gm/Sodium Chloride 500 ml @ 250 mls/hr 1X ONCE IV Last administered on 08/21/18at 12:55; Start 08/21/18 at 10:15; Stop 08/21/18 at 12:14; Status DC Vancomycin HCl (Vanco Per Pharmacy) 1 each PRN DAILY PRN MC SEE COMMENTS Last administered on 08/24/18at 16:50; Start 08/22/18 at 11:15 Vancomycin HCl 500 mg/Sodium Chloride 100 ml @ 100 mls/hr TuThSa@1600 IV Last administered on 08/24/18at 16:00; Start 08/24/18 at 16:00 Vancomycin HCl (Vancomycin Random Level) 1 each 1X ONCE MC Last administered on 08/24/18at 05:00; Start 08/24/18 at 05:00; Stop 08/24/18 at 05:01; Status DC Glucose (Insta-Glucose) 15 gm STK-MED ONCE .ROUTE ; Start 08/23/18 at 07:42; Stop 08/23/18 at 07:43; Status DC Dextrose/Sodium Chloride 1,000 ml @ 75 mls/hr [id number] IV Last administered on 08/24/18at 18:21; Start 08/23/18 at 08:45 Glucose (Insta-Glucose) 15 gm PRN Q15MIN PRN PO LOW BLOOD SUGAR; Start 08/23/18 at 09:15 Lactobacillus Rhamnosus (Culturelle) 1 cap BID PO Last administered on 08/23/18at 20:54; Start 08/23/18 at 21:00 Sodium Chloride 1,000 ml @ 1,000 mls/hr Q1H PRN IV hypotension; Start 08/24/18 at 07:28; Stop 08/24/18 at 13:27; Status DC Albumin Human 200 ml @ 200 mls/hr 1X PRN PRN IV Hypotension; Start 08/24/18 at 07:30; Stop 08/24/18 at 13:29; Status DC Acetaminophen (Tylenol) 500 mg 1X PRN PRN PO MILD PAIN / TEMP; Start 08/24/18 at 07:30; Stop 08/25/18 at 07:29 Diphenhydramine HCl (Benadryl) 25 mg 1X PRN PRN IV ITCHING; Start 08/24/18 at 07:30; Stop 08/25/18 at 07:29 Diphenhydramine HCl (Benadryl) 25 mg 1X PRN PRN IV ITCHING; Start 08/24/18 at 07:30; Stop 08/25/18 at 07:29 Sodium Chloride 1,000 ml @ 400 mls/hr Q2H30M PRN IV PATENCY; Start 08/24/18 at 07:28; Stop 08/24/18 at 19:27; Status DC Info (PHARMACY MONITORING -- do not chart) 1 each PRN DAILY PRN MC SEE COMMENTS; Start 08/24/18 at 07:30; Status UNV Cefepime HCl (Maxipime) 1 gm Q24H IVP Last administered on 08/24/18at 14:30; Start 08/24/18 at 14:30 Active Scripts Active Nystop (Nystatin) 60 Gm Powder 1 Susanna TP BID MDD 1 Morphine Sulfate Er (Morphine Sulfate) 30 Mg Tablet.er 1 Tab PO BID MDD 1 Tramadol Hcl 50 Mg Tablet 50 Mg PO Q4HRS PRN MDD 1 Brilinta (Ticagrelor) 90 Mg Tablet 90 Mg PO BID 30 Days Reported Zofran (Ondansetron Hcl) 4 Mg Tablet 1 Tab PO Q6HRS Lidocaine 1 Each Adh..patch 1 Each TP DAILY Duoneb 0.5-3(2.5) Mg/3 Ml (Albuterol/Ipratropium) 3 Ml Ampul.neb 3 Ml NEB Q4HRS Uriel-Tab (Erythromycin Base) 250 Mg Tablet.dr 250 Mg PO BID Diltiazem 24HR Cd (Diltiazem Hcl) 120 Mg Cap.er.24h 1 Cap PO DAILY Carvedilol (Carvedilol) 12.5 Mg Tablet 12.5 Mg PO BIDWMEALS Tylenol (Acetaminophen) 325 Mg Tablet 2 Tab PO PRN Q6HRS Oxycodone-Acetaminophen 10-325 (Oxycodone Hcl/Acetaminophen) 1 Each Tablet 1 Tab PO Q4HRS Renvela (Sevelamer Carbonate) 800 Mg Tablet 2 Tab PO TID Melatonin 3 Mg Tablet 9 Mg PO QHS Lantus Solostar (Insulin Glargine,Hum.rec.anlog) 100 Unit/1 Ml Insuln.pen 15 Unit SQ QHS Duoneb 0.5-3(2.5) Mg/3 Ml (Albuterol/Ipratropium) 3 Ml Ampul.neb 3 Ml NEB QID PRN Humalog (Insulin Lispro) 100 Unit/1 Ml Vial 0 SQ TID Humalog (Insulin Lispro) 100 Unit/1 Ml Vial 5 Unit SQ TIDWMEALS Guaifenesin 600 Mg Tablet.er 600 Mg PO BID [place] Saline (Sodium Chloride) 50 Ml Combs 1 Combs NS BID PRN Acetaminophen 500 Mg Tablet 650 Mg PO Q6HRS PRN Aspirin 81 Mg Tab.chew 1 Tab PO DAILY Calcitriol 0.25 Mcg Capsule 1 Cap PO DAILY Pepcid (Famotidine) 20 Mg Tablet 20 Mg PO HS Niacin 250 Mg Tablet 250 Mg PO BID Miralax (Polyethylene Glycol 3350) 17 Gm Powd.pack 1 Packet PO Q 8HRS PRN Hydralazine Hcl 10 Mg Tablet 1 Tab PO PRN TID PRN Ferrous Sulfate 325 Mg Tablet 1 Tab PO DAILY Diphenhydramine Hcl 50 Mg Capsule 1 Cap PO PRN Q8HRS PRN Prochlorperazine Maleate 10 Mg Tablet 1 Tab PO PRN Q6HRS PRN Tegretol (Carbamazepine) 200 Mg Tablet 1 Tab PO BID Amiodarone Hcl 200 Mg Tablet 1 Tab PO DAILY Lipitor (Atorvastatin Calcium) 80 Mg Tablet 80 Mg PO HS Docusate Sodium 100 Mg Capsule 1 Cap PO Q8HRS PRN Vitals/I & O Vital Sign - Last 24 Hours 08/23/18 08/23/18 08/23/18 08/23/18 20:00 20:00 21:00 23:14 Temp 97.8 98.0 97.8 98.0 Pulse 114 114 Resp 20 20 20 B/P (MAP) 92/66 (75) 85/53 (64) Pulse Ox 98 96 100 O2 Delivery Room Air Room Air Room Air Room Air 08/24/18 08/24/18 08/24/18 08/24/18 01:00 03:17 07:05 07:34 Temp 97.6 99.7 97.6 99.7 Pulse 116 118 Resp 20 20 18 B/P (MAP) 91/55 (67) 112/58 (76) Pulse Ox 99 93 97 O2 Delivery Room Air Room Air Room Air Room Air 08/24/18 08/24/18 08/24/18 08/24/18 08:00 11:59 12:10 12:46 Temp 98.4 98.4 Pulse 130 Resp 20 18 B/P (MAP) 124/77 (93) Pulse Ox 98 100 O2 Delivery Room Air Room Air Nasal Cannula Room Air O2 Flow Rate 2.0 08/24/18 08/24/18 08/24/18 08/24/18 12:47 12:49 12:49 13:46 Pulse 130 130 130 Resp 16 B/P (MAP) 124/77 124/77 124/77 O2 Delivery Room Air 08/24/18 08/24/18 08/24/18 15:00 15:30 18:15 Temp 98.5 98.5 Pulse 125 130 Resp 16 B/P (MAP) 128/75 (92) 124/77 Pulse Ox 95 97 O2 Delivery Room Air Room Air Intake and Output 08/23/18 08/23/18 08/24/18 14:59 22:59 06:59 Intake Total 40 ml 120 ml 330 ml Output Total 0 ml Balance 40 ml 120 ml 330 ml Nutrition Consultation Dietary Evaluation: Recommendations by RD: Increase Calorie Intake, Protein supplementation Comments: continue to encourage intake REC mvi vit c for wounds offer nepro, ifeoma supplements consider tube feeds for nutrition needs to be met Expected Outcomes/Goals: to meet > 50% est nutr needs via po intake, - not met, ongoing Interpretation of weight loss: >10% in 6 months Malnutrition Findings: Body Fat Depletion (Non Severe: Mild Depletion Weight Status: Underweight ROMI GOSS MD Aug 24, 2018 20:00
[2018-08-24] MEDS: INSULIN GLARGINE 300 UNITS/3 ML INSULN.PEN. SQ SCH (21:00)
[2018-08-24] MEDS: PATCH REMOVAL. MC SCH (21:00)
[2018-08-24] MEDS: FAMOTIDINE 20 MG TABLET. PO SCH (21:32)
[2018-08-24] MEDS: ATORVASTATIN CALCIUM 40 MG TABLET. PO SCH (21:33)
[2018-08-24 22:43] VITALS: BP 106/63
[2018-08-25] MEDS: IPRATRPIUM/ALBUTEROL 0.5/2.5MG 3 ML NEBU. NEB SCH ×6 (02:47→23:32)
[2018-08-25 03:08] VITALS: BP 100/60
[2018-08-25 07:00] VITALS: BP 106/66
[2018-08-25] MEDS: POLYETHYLENE GLYCOL 3350 17 GM PACKET. PO SCH ×2 (09:00→21:44)
[2018-08-25] MEDS: MORPHINE ER 15 MG TABLET.ER PO SCH ×2 (09:00→21:43)
[2018-08-25] MEDS: LIDOCAINE (700MG/PATCH) PATCH. TD SCH (09:00)
[2018-08-25] MEDS: LACTOBACILLUS RHAMNOSUS GG 1 CAPSULE. PO SCH ×2 (09:45→21:44)
[2018-08-25] MEDS: LUBIPROSTONE 8 MCG CAPSULE PO SCH ×2 (09:46→17:37)
[2018-08-25] MEDS: TICAGRELOR 90 MG TABLET. PO SCH ×2 (09:49→21:44)
[2018-08-25] MEDS: carBAMazepine 200 MG TABLET PO SCH ×2 (09:50→21:44)
[2018-08-25] MEDS: CALCITRIOL 0.25 MCG CAPSULE. PO SCH (09:50)
[2018-08-25] MEDS: ERYTHROMYCIN BASE 250 MG TABLET PO SCH ×2 (09:50→21:43)
[2018-08-25] MEDS: NIACIN ER 250 MG TABLET.ER PO SCH ×2 (09:51→21:43)
[2018-08-25] MEDS: CARVEDILOL 12.5 MG TABLET. PO SCH ×2 (09:51→17:00)
[2018-08-25] MEDS: ASPIRIN CHEWABLE 81 MG TABLET. PO SCH (09:52)
[2018-08-25] MEDS: AMIODARONE HCL 200 MG TABLET. PO SCH (09:53)
[2018-08-25] MEDS: SEVELAMER CARBONATE 800 MG TABLET. PO SCH ×3 (09:53→17:42)
[2018-08-25] MEDS: INSULIN LISPRO 300 UNITS/3 ML INSULN.PEN. SQ SCH ×6 (10:00→18:06)
[2018-08-25] MEDS: NYSTATIN TOPICAL POWDER 15GM BOTTLE. TP SCH ×2 (10:03→21:45)
[2018-08-25] MEDS: IV DEXTROSE 5 %-0.45 % NACL 1,000 ML IV SCH ×2 (10:07→21:40)
[2018-08-25 11:00] VITALS: BP 94/56
--- NOTE | 2018-08-25 11:23 | PDOC ---
PROGRESS NOTES Chief Complaint Chief Complaint sepsis rectal bleeding opioid induced constipation, recent impaction, relistor? GI consult Dm1 CAD, ESRD chronic elevated troponin s/p BKA, poorly mobile acute on chronic pain, opioid dependence Guarded prognosis History of Present Illness History of Present Illness Pt seen and examined. Looks EXTREMELY sick. Room smells of wounds DW RN Plan to consult palliative care Vitals Vitals Vital Signs Date Time Temp Pulse Resp B/P (MAP) Pulse Ox O2 Delivery O2 Flow Rate FiO2 08/25/18 11:01 Room Air 08/25/18 09:53 125 106/66 08/25/18 07:19 96 08/25/18 07:00 98.0 18 98.0 08/25/18 01:33 2.0 Physical Exam Physical Exam GENERAL: Minimal responce HEENT: Normal conjunctivae. Oral cavity: Pharynx dry. NECK: Supple. LUNGS: Clear to auscultation. HEART: S1 and S2. Murmur present. Buttock: Large wound EXTREMITIES: No gross edema or cyanosis. Previous left BKA. SKIN: Warm without rash. She has multiple wounds. General: Other (minimal responce) Heart: Regular rate, Normal S1, Normal S2 Lungs: Clear, Other Abdomen: Soft, No tenderness Extremities: Other (amputation) Skin: Other (reviewed pictures of wounds--right buttock with necrosis to wound) Labs LABS Laboratory Tests Test 08/24/18 11:56 08/24/18 16:52 08/24/18 21:40 08/25/18 07:37 Glucose (Fingerstick) 114 mg/dL (70-99) 179 mg/dL (70-99) 188 mg/dL (70-99) 196 mg/dL (70-99) Review of Systems Review of Systems unable to obtain Assessment and Plan Assessmemt and Plan sepsis rectal bleeding opioid induced constipation, recent impaction, relistor? GI consult Dm1 CAD, ESRD chronic elevated troponin s/p BKA, poorly mobile acute on chronic pain, opioid dependence Guarded prognosis Plan Consult Pall Care IV anti BX HD Labs Wound care Comment Review of Relevant I have reviewed the following items bert (where applicable) has been applied. Labs Laboratory Tests Test 08/23/18 16:39 08/23/18 20:35 08/24/18 04:40 08/24/18 07:09 Glucose (Fingerstick) 80 mg/dL (70-99) 87 mg/dL (70-99) 150 mg/dL (70-99) White Blood Count 28.3 x10^3/uL (4.0-11.0) Red Blood Count 2.82 x10^6/uL (3.50-5.40) Hemoglobin 8.5 g/dL (12.0-15.5) Hematocrit 27.7 % (36.0-47.0) Mean Corpuscular Volume 98 fL (79-100) Mean Corpuscular Hemoglobin 30 pg (25-35) Mean Corpuscular Hemoglobin Concent 31 g/dL (31-37) Red Cell Distribution Width 17.9 % (11.5-14.5) Platelet Count 289 x10^3/uL (140-400) Neutrophils (%) (Auto) 91 % (31-73) Lymphocytes (%) (Auto) 4 % (24-48) Monocytes (%) (Auto) 4 % (0-9) Eosinophils (%) (Auto) 1 % (0-3) Basophils (%) (Auto) 0 % (0-3) Neutrophils # (Auto) 25.8 x10^3uL (1.8-7.7) Lymphocytes # (Auto) 1.0 x10^3/uL (1.0-4.8) Monocytes # (Auto) 1.2 x10^3/uL (0.0-1.1) Eosinophils # (Auto) 0.2 x10^3/uL (0.0-0.7) Basophils # (Auto) 0.1 x10^3/uL (0.0-0.2) Sodium Level 137 mmol/L (136-145) Potassium Level 3.6 mmol/L (3.5-5.1) Chloride Level 96 mmol/L (98-107) Carbon Dioxide Level 27 mmol/L (21-32) Anion Gap 14 (6-14) Blood Urea Nitrogen 39 mg/dL (7-20) Creatinine 5.4 mg/dL (0.6-1.0) Estimated GFR (Cockcroft-Gault) 8.3 BUN/Creatinine Ratio 7 (6-20) Glucose Level 125 mg/dL (70-99) Calcium Level 8.8 mg/dL (8.5-10.1) Phosphorus Level 5.1 mg/dL (2.6-4.7) Total Bilirubin 0.8 mg/dL (0.2-1.0) Aspartate Amino Transf (AST/SGOT) 18 U/L (15-37) Alanine Aminotransferase (ALT/SGPT) 7 U/L (14-59) Alkaline Phosphatase 108 U/L (46-116) Total Protein 6.1 g/dL (6.4-8.2) Albumin 1.9 g/dL (3.4-5.0) Albumin/Globulin Ratio 0.5 (1.0-1.7) Random Vancomycin Level 19.6 mcg/mL Hepatitis B Surface Antigen Nonreactive (Nonreactive) Test 08/24/18 11:56 08/24/18 16:52 08/24/18 21:40 08/25/18 07:37 Glucose (Fingerstick) 114 mg/dL (70-99) 179 mg/dL (70-99) 188 mg/dL (70-99) 196 mg/dL (70-99) Laboratory Tests Test 08/24/18 11:56 08/24/18 16:52 08/24/18 21:40 08/25/18 07:37 Glucose (Fingerstick) 114 mg/dL (70-99) 179 mg/dL (70-99) 188 mg/dL (70-99) 196 mg/dL (70-99) Microbiology 08/21/18 Blood Culture - Preliminary, Resulted NO GROWTH AFTER 3 DAYS Medications Current Medications Sodium Chloride 1,000 ml @ 1,000 mls/hr 1X ONCE IV Last administered on 08/20/18at 04:28; Start 08/20/18 at 03:00; Stop 08/20/18 at 03:59; Status DC Cefepime HCl (Maxipime) 2 gm 1X ONCE IVP Last administered on 08/20/18at 04:28; Start 08/20/18 at 03:00; Stop 08/20/18 at 03:01; Status DC Ondansetron HCl (Zofran) 4 mg PRN Q8HRS PRN IV NAUSEA/VOMITING 1ST CHOICE Last administered on 08/20/18at 07:27; Start 08/20/18 at 05:00; Stop 08/21/18 at 04:59; Status DC Insulin Human Lispro (HumaLOG) 0-5 UNITS TIDWMEALS SQ Last administered on 5/1/19at 10:03; Start 08/20/18 at 08:00 Dextrose (Dextrose 50%-Water Syringe) 12.5 gm PRN Q15MIN PRN IV SEE COMMENTS Last administered on 08/23/18 08:07; Start 08/20/18 at 05:00 Acetaminophen (Tylenol) 650 mg PRN Q6HRS PRN PO MILD PAIN / TEMP; Start 08/20/18 at 09:30 Amiodarone HCl (Cordarone) 200 mg DAILY PO Last administered on 08/25/18 09:53; Start 08/20/18 at 10:00 Aspirin (Children'S Aspirin) 81 mg DAILY PO Last administered on 08/25/18 09:52; Start 08/20/18 at 10:00 Carbamazepine (TEGretol) 200 mg BID PO Last administered on 08/25/18 09:50; Start 08/20/18 at 10:00 Carvedilol (Coreg) 12.5 mg BIDWMEALS PO Last administered on 08/25/18 09:51; Start 08/20/18 at 10:00 Docusate Sodium (Colace) 100 mg PRN Q8HRS PRN PO CONSTIPATION; Start 08/20/18 at 09:30 Famotidine (Pepcid) 20 mg HS PO Last administered on 08/24/18 21:32; Start 08/20/18 at 21:00 Guaifenesin (Mucinex) 600 mg BID PO Last administered on 08/25/18 09:48; Start 08/20/18 at 10:00 Insulin Glargine (Lantus) 15 units QHS SQ Last administered on 08/22/18 20:57; Start 08/20/18 at 21:00 Insulin Human Lispro (HumaLOG) 5 units TIDWMEALS SQ Last administered on 08/25/18 10:00; Start 08/20/18 at 12:00 Insulin Human Lispro (HumaLOG VIAL) 5 unit TIDWMEALS SQ ; Start 08/20/18 at 12:00; Status UNV Albuterol/ Ipratropium (Duoneb) 3 ml Q4HRS NEB Last administered on 08/25/18 11:01; Start 08/20/18 at 12:00 Albuterol Sulfate (Ventolin Neb Soln) 2.5 mg PRN Q4HRS PRN NEB SHORTNESS OF BREATH; Start 08/20/18 at 09:45 Morphine Sulfate (Ms Contin) 30 mg BID PO Last administered on 08/24/18 21:33; Start 08/20/18 at 10:00 Nystatin (Nystop) 1 susanna BID TP Last administered on 08/25/18 10:03; Start 08/20/18 at 10:00 Oxycodone/ Acetaminophen (Percocet 10/325) 1 tab PRN Q4HRS PRN PO MODERATE - SEVERE PAIN Last administered on 08/24/18 12:46; Start 08/20/18 at 12:00 Prochlorperazine Maleate (Compazine) 10 mg PRN Q6HRS PRN PO NAUSEA/VOMITING; Start 08/20/18 at 09:30 Sevelamer Carbonate (Renvela) 1,600 mg TIDWMEALS PO Last administered on 08/25/18 09:53; Start 08/20/18 at 12:00 Ticagrelor (Brilinta) 90 mg BID PO Last administered on 08/25/18 09:49; Start 08/20/18 at 10:00 Atorvastatin Calcium (Lipitor) 80 mg QHS PO Last administered on 08/24/18 21:33; Start 08/20/18 at 21:00 Calcitriol (Rocaltrol) 0.25 mcg DAILY PO Last administered on 08/25/18 09:50; Start 08/20/18 at 10:00 Diltiazem HCl (Cardizem 24hr Cd) 120 mg DAILY PO Last administered on 08/25/18 09:49; Start 08/20/18 at 10:00 Erythromycin (E-Mycin) 250 mg BID PO Last administered on 08/25/18 09:50; Start 08/20/18 at 10:00 Hydralazine HCl (Apresoline) 10 mg PRN TID PRN PO ELEVATED BP; Start 08/20/18 at 14:00 Lidocaine (Lidoderm) 1 patch DAILY TD Last administered on 08/24/18 12:51; Start 08/20/18 at 10:00 Non-Formulary Medication (Melatonin ) 9 mg QHS PO ; Start 08/20/18 at 21:00; Status UNV Niacin (Slo-Niacin) 250 mg BID PO Last administered on 08/25/18at 09:51; Start 08/20/18 at 10:00 Ondansetron HCl (Zofran Odt) 4 mg PRN Q6HRS PRN PO NAUSEA/VOMITING, 1ST CHOICE; Start 08/20/18 at 09:45 Polyethylene Glycol (miraLAX PACKET) 17 gm PRN Q8HRS PRN PO CONSTIPATION; Start 08/20/18 at 09:42; Stop 08/20/18 at 12:24; Status DC Sodium Chloride (Vilonia Saline Nasal) 1 susanna PRN BID PRN NS NASAL CONGESTION; Start 08/20/18 at 10:00 Hydromorphone HCl (Dilaudid) 1 mg PRN Q4HRS PRN IVP PAIN Last administered on 08/21/18at 05:42; Start 08/20/18 at 09:30 Miscellaneous (Lidoderm Patch Removal) 1 ea QHS MC Last administered on 08/23/18at 20:57; Start 08/20/18 at 21:00 Darbepoetin Mauricio (Aranesp) 60 mcg Fr SQ Last administered on 08/20/18at 20:25; Start 08/20/18 at 21:00 Polyethylene Glycol (miraLAX PACKET) 17 gm BID PO Last administered on 08/24/18at 21:34; Start 08/20/18 at 21:00 Lubiprostone (Amitiza) 24 mcg BIDWMEALS PO Last administered on 08/25/18at 09:46; Start 08/20/18 at 17:00 Sodium Chloride 1,000 ml @ 1,000 mls/hr Q1H PRN IV hypotension; Start 08/21/18 at 09:50; Stop 08/21/18 at 15:49; Status DC Info (PHARMACY MONITORING -- do not chart) 1 each PRN DAILY PRN MC SEE COMMENTS; Start 08/21/18 at 10:00; Status UNV Info (PHARMACY MONITORING -- do not chart) 1 each PRN DAILY PRN MC SEE COMMENTS; Start 08/21/18 at 10:00 Vancomycin HCl 500 mg/Sodium Chloride 100 ml @ 100 mls/hr 1X ONCE IV ; Start 08/21/18 at 12:00; Stop 08/21/18 at 12:59; Status UNV Vancomycin HCl 1.5 gm/Sodium Chloride 500 ml @ 250 mls/hr 1X ONCE IV Last administered on 08/21/18at 12:55; Start 08/21/18 at 10:15; Stop 08/21/18 at 12:14; Status DC Vancomycin HCl (Vanco Per Pharmacy) 1 each PRN DAILY PRN MC SEE COMMENTS Last administered on 08/24/18at 16:50; Start 08/22/18 at 11:15 Vancomycin HCl 500 mg/Sodium Chloride 100 ml @ 100 mls/hr TuThSa@1600 IV Last administered on 08/24/18at 16:00; Start 08/24/18 at 16:00 Vancomycin HCl (Vancomycin Random Level) 1 each 1X ONCE MC Last administered on 08/24/18at 05:00; Start 08/24/18 at 05:00; Stop 08/24/18 at 05:01; Status DC Glucose (Insta-Glucose) 15 gm STK-MED ONCE .ROUTE ; Start 08/23/18 at 07:42; Stop 08/23/18 at 07:43; Status DC Dextrose/Sodium Chloride 1,000 ml @ 75 mls/hr [id number] IV Last administered on 08/25/18at 10:07; Start 08/23/18 at 08:45 Glucose (Insta-Glucose) 15 gm PRN Q15MIN PRN PO LOW BLOOD SUGAR; Start 08/23/18 at 09:15 Lactobacillus Rhamnosus (Culturelle) 1 cap BID PO Last administered on 08/25/18at 09:45; Start 08/23/18 at 21:00 Sodium Chloride 1,000 ml @ 1,000 mls/hr Q1H PRN IV hypotension; Start 08/24/18 at 07:28; Stop 08/24/18 at 13:27; Status DC Albumin Human 200 ml @ 200 mls/hr 1X PRN PRN IV Hypotension; Start 08/24/18 at 07:30; Stop 08/24/18 at 13:29; Status DC Acetaminophen (Tylenol) 500 mg 1X PRN PRN PO MILD PAIN / TEMP; Start 08/24/18 at 07:30; Stop 08/25/18 at 07:29; Status DC Diphenhydramine HCl (Benadryl) 25 mg 1X PRN PRN IV ITCHING; Start 08/24/18 at 07:30; Stop 08/25/18 at 07:29; Status DC Diphenhydramine HCl (Benadryl) 25 mg 1X PRN PRN IV ITCHING; Start 08/24/18 at 0 7:30; Stop 08/25/18 at 07:29; Status DC Sodium Chloride 1,000 ml @ 400 mls/hr Q2H30M PRN IV PATENCY; Start 08/24/18 at 07:28; Stop 08/24/18 at 19:27; Status DC Info (PHARMACY MONITORING -- do not chart) 1 each PRN DAILY PRN MC SEE COMMENTS; Start 08/24/18 at 07:30; Status UNV Cefepime HCl (Maxipime) 1 gm Q24H IVP Last administered on 08/24/18at 14:30; Start 08/24/18 at 14:30 Active Scripts Active Nystop (Nystatin) 60 Gm Powder 1 Susanna TP BID MDD 1 Morphine Sulfate Er (Morphine Sulfate) 30 Mg Tablet.er 1 Tab PO BID MDD 1 Tramadol Hcl 50 Mg Tablet 50 Mg PO Q4HRS PRN MDD 1 Brilinta (Ticagrelor) 90 Mg Tablet 90 Mg PO BID 30 Days Reported Zofran (Ondansetron Hcl) 4 Mg Tablet 1 Tab PO Q6HRS Lidocaine 1 Each Adh..patch 1 Each TP DAILY Duoneb 0.5-3(2.5) Mg/3 Ml (Albuterol/Ipratropium) 3 Ml Ampul.neb 3 Ml NEB Q4HRS Uriel-Tab (Erythromycin Base) 250 Mg Tablet.dr 250 Mg PO BID Diltiazem 24HR Cd (Diltiazem Hcl) 120 Mg Cap.er.24h 1 Cap PO DAILY Carvedilol (Carvedilol) 12.5 Mg Tablet 12.5 Mg PO BIDWMEALS Tylenol (Acetaminophen) 325 Mg Tablet 2 Tab PO PRN Q6HRS Oxycodone-Acetaminophen 10-325 (Oxycodone Hcl/Acetaminophen) 1 Each Tablet 1 Tab PO Q4HRS Renvela (Sevelamer Carbonate) 800 Mg Tablet 2 Tab PO TID Melatonin 3 Mg Tablet 9 Mg PO QHS Lantus Solostar (Insulin Glargine,Hum.rec.anlog) 100 Unit/1 Ml Insuln.pen 15 Unit SQ QHS Duoneb 0.5-3(2.5) Mg/3 Ml (Albuterol/Ipratropium) 3 Ml Ampul.neb 3 Ml NEB QID PRN Humalog (Insulin Lispro) 100 Unit/1 Ml Vial 0 SQ TID Humalog (Insulin Lispro) 100 Unit/1 Ml Vial 5 Unit SQ TIDWMEALS Guaifenesin 600 Mg Tablet.er 600 Mg PO BID Vilonia Saline (Sodium Chloride) 50 Ml [place] 1 [place] NS BID PRN Acetaminophen 500 Mg Tablet 650 Mg PO Q6HRS PRN Aspirin 81 Mg Tab.chew 1 Tab PO DAILY Calcitriol 0.25 Mcg Capsule 1 Cap PO DAILY Pepcid (Famotidine) 20 Mg Tablet 20 Mg PO HS Niacin 250 Mg Tablet 250 Mg PO BID Miralax (Polyethylene Glycol 3350) 17 Gm Powd.pack 1 Packet PO Q 8HRS PRN Hydralazine Hcl 10 Mg Tablet 1 Tab PO PRN TID PRN Ferrous Sulfate 325 Mg Tablet 1 Tab PO DAILY Diphenhydramine Hcl 50 Mg Capsule 1 Cap PO PRN Q8HRS PRN Prochlorperazine Maleate 10 Mg Tablet 1 Tab PO PRN Q6HRS PRN Tegretol (Carbamazepine) 200 Mg Tablet 1 Tab PO BID Amiodarone Hcl 200 Mg Tablet 1 Tab PO DAILY Lipitor (Atorvastatin Calcium) 80 Mg Tablet 80 Mg PO HS Docusate Sodium 100 Mg Capsule 1 Cap PO Q8HRS PRN Vitals/I & O Vital Sign - Last 24 Hours 08/24/18 08/24/18 08/24/18 08/24/18 11:59 12:10 12:46 12:47 Temp 98.4 98.4 Pulse 130 130 Resp 20 18 B/P (MAP) 124/77 (93) 124/77 Pulse Ox 98 100 O2 Delivery Room Air Nasal Cannula Room Air O2 Flow Rate 2.0 08/24/18 08/24/18 08/24/18 08/24/18 12:49 12:49 13:46 15:00 Temp 98.5 98.5 Pulse 130 130 125 Resp 16 16 B/P (MAP) 124/77 124/77 128/75 (92) Pulse Ox 95 O2 Delivery Room Air Room Air 08/24/18 08/24/18 08/24/18 08/24/18 15:30 18:15 19:00 20:00 Temp 99.3 99.3 Pulse 130 127 Resp 18 B/P (MAP) 124/77 108/65 (79) Pulse Ox 97 100 O2 Delivery Room Air Room Air Room Air O2 Flow Rate 2.0 08/24/18 08/24/18 08/24/18 08/25/18 20:09 21:33 22:43 01:33 Temp 97.8 97.8 Pulse 128 Resp 18 B/P (MAP) 106/63 (77) Pulse Ox 96 99 99 O2 Delivery Room Air Room Air Room Air Room Air O2 Flow Rate 2.0 08/25/18 08/25/18 08/25/18 08/25/18 03:08 07:00 07:19 09:49 Temp 97.9 98.0 97.9 98.0 Pulse 123 125 125 Resp 17 18 B/P (MAP) 100/60 (73) 106/66 (79) 106/66 Pulse Ox 99 96 96 O2 Delivery Room Air Room Air Room Air 08/25/18 08/25/18 08/25/18 09:51 09:53 11:01 Pulse 125 125 B/P (MAP) 106/66 106/66 O2 Delivery Room Air Intake and Output 08/24/18 08/24/18 08/25/18 14:59 22:59 06:59 Intake Total 50 ml 50 ml 0 ml Output Total 0 ml Balance 50 ml 50 ml 0 ml Nutrition Consultation Dietary Evaluation: Recommendations by RD: Increase Calorie Intake, Protein supplementation Comments: continue to encourage intake REC mvi vit c for wounds offer nepro, ifeoma supplements consider tube feeds for nutrition needs to be met Expected Outcomes/Goals: to meet > 50% est nutr needs via po intake, - not met, ongoing Interpretation of weight loss: >10% in 6 months Malnutrition Findings: Body Fat Depletion (Non Severe: Mild Depletion Weight Status: Underweight BRITTANIELENIAJitendra K III DO August 25, 2018 11:23
--- NOTE | 2018-08-25 12:16 | PDOC ---
Infectious Disease Note Subjective Subjective Says not feeling bad but not feeling good either No F/C/SOA/lipcsomb/N/V Vital Sign Vital Signs Vital Signs Date Time Temp Pulse Resp B/P (MAP) Pulse Ox O2 Delivery O2 Flow Rate FiO2 08/25/18 11:01 Room Air 08/25/18 11:00 98.2 74 18 94/56 (69) 99 98.2 08/25/18 01:33 2.0 Physical Exam PHYSICAL EXAM GENERAL: Minimal responce HEENT: Normal conjunctivae. Oral cavity: Pharynx dry. NECK: Supple. LUNGS: Clear to auscultation. HEART: S1 and S2. Murmur present. Buttock: Large wound EXTREMITIES: No gross edema or cyanosis. Previous left BKA. SKIN: Warm without rash. She has multiple wounds. Labs Lab Laboratory Tests Test 08/24/18 16:52 08/24/18 21:40 08/25/18 07:37 Glucose (Fingerstick) 179 mg/dL (70-99) 188 mg/dL (70-99) 196 mg/dL (70-99) Micro BLOOD CULTURE LC Final Final report BLD CULT RESULT 1 Final Comment Staphylococcus warneri Based on susceptibility to oxacillin this isolate would be susceptible to: *Penicillinase-stable penicillins, such as: Cloxacillin, Dicloxacillin, Nafcillin *Beta-lactam combination agents, such as: Amoxicillin-clavulanic acid, Ampicillin-sulbactam, Piperacillin-tazobactam *Oral cephems, such as: Cefaclor, Cefdinir, Cefpodoxime, Cefprozil, Cefuroxime, Cephalexin, Loracarbef *Parenteral cephems, such as: Cefazolin, Cefepime, Cefotaxime, Cefotetan, Ceftaroline, Ceftizoxime, Ceftriaxone, Cefuroxime *Carbapenems, such as: Doripenem, Ertapenem, Imipenem, Meropenem ANTIMICROBIAL SUSCEPTIBILITY Final Comment S = Susceptible; I = Intermediate; R = Resistant P = Positive; N = Negative MICS are expressed in micrograms per mL Antibiotic RSLT#1 RSLT#2 RSLT#3 RSLT#4 Ciprofloxacin R>=8 Clindamycin S<=0.25 Erythromycin R>=8 Gentamicin S<=0.5 Levofloxacin I =4 Oxacillin S<=0.25 Penicillin R>=0.5 Rifampin S<=0.5 Tetracycline S<=1 CONTINUED ON NEXT PAGE RUN DATE: 08/25/18 PAGE 2 RUN TIME: 1213 [facility] [address] [place] [address] Edward Kent M.D., Interpreter SPEC: [id number] PATIENT: JAMAL BOSE [id number] (Continued) ------ Procedure Result ANTIMICROBIAL SUSCEPTIBILITY Final (continued) Trimethoprim/Sulfa S<=10 Vancomycin S<=0.5 Performed at: DA - [facility] [address], [place], [place] [id number] Accelerator Technician: NOLBERTO Mauricio MD, Phone: [phone] Objective Assessment GPC bacteremia (POA) staph werbetyi Leukocytosis Multiple wounds Multiple abx allergies h/o c. diff Rectal bleeding and constipation CKD/HD via AV fistula Diabetes Plan Plan of Care vanc x 1 dose, 08/21. continue renal dosing Await GPC ID/susceptibilities Repeat BC from 08/21 pending Monitor WBC/temp Wound care team following cefepime poor intake, encouraged to eat /supplement DANDY LÓPEZ MD August 25, 2018 12:16
--- NOTE | 2018-08-25 12:49 | PDOC ---
Subjective: Subjective: She's not really hungry but is eating anyway because "They're making me." Wants to know if she'll have an exam because of the bleeding she had prior to admission. Says "so I really didn't need to come here" - nurses then reviewed wounds, infection, etc. Objective: Objective: Reviewed w/ RN - passed a "pebble" stool this morning. No bleeding. Reviewed chart - full code, full aggressive care. Vital Signs: Vital Signs Date Time Temp Pulse Resp B/P (MAP) Pulse Ox O2 Delivery O2 Flow Rate FiO2 08/25/18 11:01 Room Air 08/25/18 11:00 98.2 74 18 94/56 (69) 99 98.2 08/25/18 01:33 2.0 Labs: Laboratory Tests Test 08/24/18 16:52 08/24/18 21:40 08/25/18 07:37 08/25/18 12:12 Glucose (Fingerstick) 179 mg/dL 188 mg/dL 196 mg/dL 169 mg/dL PE: GEN: NAD - staff feeding her chicken, rice, and peas - she says the peas aren't cooked enough LUNGS: room air ABD: S/ND/NT NEURO/PSYCH: A & O 3 - better today A/P: Bacteremia - Staphylococcus warneri Sacral ulcer Chronic anemia - rectal bleeding prior to admission, no recurrence -- Continue treatment for constipation. EDDY IGLESIAS August 25, 2018 12:49
[2018-08-25] MEDS: VANCOMYCIN PER PHARMACY MC PRN (14:04)
[2018-08-25] MEDS: CEFEPIME HCL IV Push 1 GM VIAL. IVP SCH (14:28)
[2018-08-25 15:00] VITALS: BP 85/43
[2018-08-25] MEDS: SODIUM HYPOCHLORITE 0.125% 473 ML BOTTLE. TP SCH (15:30)
--- NOTE | 2018-08-25 15:37 | NUR ---
Wound Care Patient seen per wound care follow up regarding multiple wounds. Pt has scabs to bilateral hands, painted with Betadine and left open to air. Pt has DFU to right heel, painted with Betadine and covered with abd and kerlix. Pt has stasis ulcers to right lower leg, covered with Xeroform, abd's and Kerlix. Pt has DTI with III to L BKA, applied Aquacel ag and foam. Pt has Stage III to left buttock, dressed with xeroform and foam. Pt has unstageable PU to Right buttock that is washburn, black and yellow with foul odor. Cleansed with Dakin's soaked gauze, then applied Aquacel Ag with ABD and Hypafix tape, change every other day. nystatin to R groin. Patient repositioned and turned right side. Right heel floated. Patient on P -500 bed. Dressing change instructions left in room. Spoke with RN regarding wound care. Dakins solution ordered to cleanse right buttock wound. WC will continue to follow for possible changes.
--- NOTE | 2018-08-25 16:01 | NUR ---
RAVI faxed updates to [facility].
[2018-08-25 19:00] VITALS: BP 85/49
--- NOTE | 2018-08-25 19:33 | NUR ---
While pt was being fed breakfast being explained why she was needing more protein, she stated that she did not know where her wounds were. Inconsistently confused, knew where she was, she knew her name and birthdate, not the actual date. Pt was frequently was drowsy and sleeping. She became more alert after eating, but still confused easily and drowsy and sleeping.
--- NOTE | 2018-08-25 20:57 | PDOC ---
SUBJECTIVE ROS Talking on the phone OBJECTIVE Vital Signs Vital Signs Date Time Temp Pulse Resp B/P (MAP) Pulse Ox O2 Delivery O2 Flow Rate FiO2 08/25/18 19:00 97.9 115 16 85/49 (61) 99 Room Air 97.9 08/25/18 09:00 2.0 I & 0 Intake and Output 08/25/18 06:59 Intake Total 100 ml Output Total 0 ml Balance 100 ml Intake Oral 100 ml Output Urine Total 0 ml PHYSICAL EXAM Physical Exam GENERAL: NAD HEENT: Oral cavity: Pharynx dry. NECK: Supple. LUNGS: Clear to auscultation. HEART: S1 and S2. Murmur present. ABDOMEN: Mildly distended, soft and nontender with bowel sounds present. PD catheter in place. EXTREMITIES: No gross edema or cyanosis. Previous left BKA. SKIN: Warm without rash. She has multiple wounds. NEUROLOGIC: Drowsy, answers questions appropriately - No Morales DIAGNOSIS/ASSESSMENT Assessment & Plan ESRD - On HD TTS No Indication for HD today Was on PD , she refuses to remove the PD catheter Bacteremia /Leukocytosis /Multiple wounds ID managing Anemia- Chronic Rectal bleeding and constipation GI Following Diabetes Pt wants to continue full aggressive care COMMENT/RELEVANT DATA Meds Current Medications Medications (Trade) Dose Ordered Sig/Martin Start Time Stop Time Status Last Admin Dose Admin Acetaminophen (Tylenol) 500 mg 1X PRN PRN 08/24/18 07:30 08/25/18 07:29 DC Albumin Human 200 ml @ 200 mls/hr 1X PRN PRN 08/24/18 07:30 08/24/18 13:29 DC Albuterol Sulfate (Ventolin Neb Soln) 2.5 mg PRN Q4HRS PRN 08/20/18 09:45 Albuterol/ Ipratropium (Duoneb) 3 ml Q4HRS 08/20/18 12:00 08/25/18 15:24 3 ML Amiodarone HCl (Cordarone) 200 mg DAILY 08/20/18 10:00 08/25/18 09:53 200 MG Aspirin (Children'S Aspirin) 81 mg DAILY 08/20/18 10:00 08/25/18 09:52 81 MG Atorvastatin Calcium (Lipitor) 80 mg QHS 08/20/18 21:00 08/24/18 21:33 80 MG Calcitriol (Rocaltrol) 0.25 mcg DAILY 08/20/18 10:00 08/25/18 09:50 0.25 MCG Carbamazepine (TEGretol) 200 mg BID 08/20/18 10:00 08/25/18 09:50 200 MG Carvedilol (Coreg) 12.5 mg BIDWMEALS 08/20/18 10:00 08/25/18 09:51 12.5 MG Cefepime HCl (Maxipime) 1 gm Q24H 08/24/18 14:30 08/25/18 14:28 1 GM Darbepoetin Mauricio (Aranesp) 60 mcg Fr 08/20/18 21:00 08/20/18 20:25 60 MCG Dextrose (Dextrose 50%-Water Syringe) 12.5 gm PRN Q15MIN PRN 08/20/18 05:00 08/23/18 08:07 25 GM Dextrose/Sodium Chloride 1,000 ml @ 75 mls/hr [id number] 08/23/18 08:45 08/25/18 10:07 75 MLS/HR Diltiazem HCl (Cardizem 24hr Cd) 120 mg DAILY 08/20/18 10:00 08/25/18 09:49 120 MG Diphenhydramine HCl (Benadryl) 25 mg 1X PRN PRN 08/24/18 07:30 08/25/18 07:29 DC Docusate Sodium (Colace) 100 mg PRN Q8HRS PRN 08/20/18 09:30 Erythromycin (E-Mycin) 250 mg BID 08/20/18 10:00 08/25/18 09:50 250 MG Famotidine (Pepcid) 20 mg HS 08/20/18 21:00 08/24/18 21:32 20 MG Glucose (Insta-Glucose) 15 gm PRN Q15MIN PRN 08/23/18 09:15 Guaifenesin (Mucinex) 600 mg BID 08/20/18 10:00 08/25/18 09:48 600 MG Hydralazine HCl (Apresoline) 10 mg PRN TID PRN 08/20/18 14:00 Hydromorphone HCl (Dilaudid) 1 mg PRN Q4HRS PRN 08/20/18 09:30 08/21/18 05:42 1 MG Info (PHARMACY MONITORING -- do not chart) 1 each PRN DAILY PRN 08/24/18 07:30 UNV Insulin Glargine (Lantus) 15 units QHS 08/20/18 21:00 08/22/18 20:57 15 UNITS Insulin Human Lispro (HumaLOG VIAL) 5 unit TIDWMEALS 08/20/18 12:00 UNV Insulin Human Lispro (HumaLOG) 5 units TIDWMEALS 08/20/18 12:00 08/25/18 18:06 5 UNITS Lactobacillus Rhamnosus (Culturelle) 1 cap BID 08/23/18 21:00 08/25/18 09:45 1 CAP Lidocaine (Lidoderm) 1 patch DAILY 08/20/18 10:00 08/24/18 12:51 1 PATCH Lubiprostone (Amitiza) 24 mcg BIDWMEALS 08/20/18 17:00 08/25/18 17:37 24 MCG Miscellaneous (Lidoderm Patch Removal) 1 ea QHS 08/20/18 21:00 08/23/18 20:57 1 EA Morphine Sulfate (Ms Contin) 30 mg BID 08/20/18 10:00 08/24/18 21:33 30 MG Niacin (Slo-Niacin) 250 mg BID 08/20/18 10:00 08/25/18 09:51 250 MG Non-Formulary Medication (Melatonin ) 9 mg QHS 08/20/18 21:00 UNV Nystatin (Nystop) 1 erich BID 08/20/18 10:00 08/25/18 10:03 1 ERICH Ondansetron HCl (Zofran Odt) 4 mg PRN Q6HRS PRN 08/20/18 09:45 Ondansetron HCl (Zofran) 4 mg PRN Q8HRS PRN 08/20/18 05:00 08/21/18 04:59 DC 08/20/18 07:27 4 MG Oxycodone/ Acetaminophen (Percocet 10/325) 1 tab PRN Q4HRS PRN 08/20/18 12:00 08/24/18 12:46 1 TAB Polyethylene Glycol (miraLAX PACKET) 17 gm BID 08/20/18 21:00 08/24/18 21:34 17 GM Prochlorperazine Maleate (Compazine) 10 mg PRN Q6HRS PRN 08/20/18 09:30 Sevelamer Carbonate (Renvela) 1,600 mg TIDWMEALS 08/20/18 12:00 08/25/18 17:42 1,600 MG Sodium Hypochlorite (Dakin'S 04/30 Strength) 1 erich QODAY 08/25/18 15:30 08/25/18 15:30 1 ERICH Sodium Chloride 1,000 ml @ 400 mls/hr Q2H30M PRN 08/24/18 07:28 08/24/18 19:27 DC Sodium Chloride ([place] Saline Nasal) 1 erich PRN BID PRN 08/20/18 10:00 Ticagrelor (Brilinta) 90 mg BID 08/20/18 10:00 08/25/18 09:49 90 MG Vancomycin HCl (Vanco Per Pharmacy) 1 each PRN DAILY PRN 08/22/18 11:15 08/25/18 14:04 1 EACH Vancomycin HCl (Vancomycin Random Level) 1 each 1X ONCE 08/24/18 05:00 08/24/18 05:01 DC 08/24/18 05:00 1 EACH Vancomycin HCl 1.5 gm/Sodium Chloride 500 ml @ 250 mls/hr 1X ONCE 08/21/18 10:15 08/21/18 12:14 DC 08/21/18 12:55 250 MLS/HR Vancomycin HCl 500 mg/Sodium Chloride 100 ml @ 100 mls/hr [id number]@1600 08/24/18 16:00 08/24/18 16:00 100 MLS/HR Lab Laboratory Tests Test 08/24/18 21:40 08/25/18 07:37 08/25/18 12:12 08/25/18 17:09 Glucose (Fingerstick) 188 mg/dL (70-99) 196 mg/dL (70-99) 169 mg/dL (70-99) 139 mg/dL (70-99) Results All relevant outside records, renal labs, imaging studies, telemetry/EKG's were reviewed. HEMANT SCHAEFER MD August 25, 2018 20:57
[2018-08-25] MEDS: PATCH REMOVAL. MC SCH (21:00)
[2018-08-25] MEDS: ATORVASTATIN CALCIUM 40 MG TABLET. PO SCH (21:43)
[2018-08-25] MEDS: FAMOTIDINE 20 MG TABLET. PO SCH (21:44)
[2018-08-25] MEDS: INSULIN GLARGINE 300 UNITS/3 ML INSULN.PEN. SQ SCH (22:00)
[2018-08-25 23:00] VITALS: BP 81/48
[2018-08-26 00:34] VITALS: BP 92/63
[2018-08-26 03:00] VITALS: BP 112/68
[2018-08-26] MEDS: IPRATRPIUM/ALBUTEROL 0.5/2.5MG 3 ML NEBU. NEB SCH ×5 (03:02→20:40)
[2018-08-26 04:38] LABS: ALBUMIN 1.8 g/dL (3.4-5.0); CALCIUM 8.8 mg/dL (8.5-10.1); CREATININE 3.9 mg/dL (0.6-1.0); GFR 12.1; PHOSPHORUS 3.2 mg/dL (2.6-4.7); POTASSIUM 3.9 mmol/L (3.5-5.1)
[2018-08-26 07:00] VITALS: BP 98/57
[2018-08-26] MEDS: INSULIN LISPRO 300 UNITS/3 ML INSULN.PEN. SQ SCH ×6 (08:00→17:00)
[2018-08-26] MEDS: DEXTROSE 50% 25 GM / 50ML DISP.SYRIN. IV PRN (08:26)
[2018-08-26] MEDS: LIDOCAINE (700MG/PATCH) PATCH. TD SCH (09:00)
[2018-08-26] MEDS: NYSTATIN TOPICAL POWDER 15GM BOTTLE. TP SCH ×2 (09:00→21:23)
[2018-08-26] MEDS: POLYETHYLENE GLYCOL 3350 17 GM PACKET. PO SCH ×2 (09:00→21:20)
[2018-08-26] MEDS: LUBIPROSTONE 8 MCG CAPSULE PO SCH ×2 (09:40→18:11)
[2018-08-26] MEDS: AMIODARONE HCL 200 MG TABLET. PO SCH (09:40)
[2018-08-26] MEDS: LACTOBACILLUS RHAMNOSUS GG 1 CAPSULE. PO SCH ×2 (09:40→21:19)
[2018-08-26] MEDS: CALCITRIOL 0.25 MCG CAPSULE. PO SCH (09:41)
[2018-08-26] MEDS: carBAMazepine 200 MG TABLET PO SCH ×2 (09:41→21:20)
[2018-08-26] MEDS: SEVELAMER CARBONATE 800 MG TABLET. PO SCH ×3 (09:41→18:10)
[2018-08-26] MEDS: ERYTHROMYCIN BASE 250 MG TABLET PO SCH ×2 (09:41→21:20)
[2018-08-26] MEDS: NIACIN ER 250 MG TABLET.ER PO SCH ×2 (09:41→21:20)
[2018-08-26] MEDS: TICAGRELOR 90 MG TABLET. PO SCH ×2 (09:42→21:00)
[2018-08-26] MEDS: CARVEDILOL 12.5 MG TABLET. PO SCH ×2 (09:42→18:12)
[2018-08-26] MEDS: ASPIRIN CHEWABLE 81 MG TABLET. PO SCH (09:42)
[2018-08-26] MEDS ORDERED: IV NORMAL SALINE 1000ML BAG 1,000 ML IV PRN ×2 (10:44)
[2018-08-26] MEDS ORDERED: DIALYSIS PATIENT. MC PRN (10:45)
[2018-08-26] MEDS ORDERED: diphenhydrAMINE 50 MG/ML VIAL IV PRN ×2 (10:45)
--- NOTE | 2018-08-26 11:18 | PDOC ---
Infectious Disease Note Subjective Subjective Says not feeling bad but not feeling good either No F/C/SOA/lipscomb/N/V Vital Sign Vital Signs Vital Signs Date Time Temp Pulse Resp B/P (MAP) Pulse Ox O2 Delivery O2 Flow Rate FiO2 08/26/18 09:42 125 98/57 08/26/18 07:41 Room Air 08/26/18 07:00 97.9 16 96 97.9 08/25/18 20:00 2.0 Physical Exam PHYSICAL EXAM GENERAL: Minimal responce HEENT: Normal conjunctivae. Oral cavity: Pharynx dry. NECK: Supple. LUNGS: Clear to auscultation. HEART: S1 and S2. Murmur present. Buttock: Large wound EXTREMITIES: No gross edema or cyanosis. Previous left BKA. SKIN: Warm without rash. She has multiple wounds. Labs Lab Laboratory Tests Test 08/25/18 12:12 08/25/18 17:09 08/25/18 21:19 08/26/18 03:20 Glucose (Fingerstick) 169 mg/dL (70-99) 139 mg/dL (70-99) 136 mg/dL (70-99) Sodium Level 136 mmol/L (136-145) Potassium Level 3.9 mmol/L (3.5-5.1) Chloride Level 99 mmol/L (98-107) Carbon Dioxide Level 27 mmol/L (21-32) Anion Gap 10 (6-14) Blood Urea Nitrogen 47 mg/dL (7-20) Creatinine 3.9 mg/dL (0.6-1.0) Estimated GFR (Cockcroft-Gault) 12.1 Glucose Level 93 mg/dL (70-99) Calcium Level 8.8 mg/dL (8.5-10.1) Phosphorus Level 3.2 mg/dL (2.6-4.7) Albumin 1.8 g/dL (3.4-5.0) Test 08/26/18 08:13 08/26/18 08:59 Glucose (Fingerstick) 34 mg/dL (70-99) 126 mg/dL (70-99) Micro BLOOD CULTURE LC Final Final report BLD CULT RESULT 1 Final Comment Staphylococcus warneri Based on susceptibility to oxacillin this isolate would be susceptible to: *Penicillinase-stable penicillins, such as: Cloxacillin, Dicloxacillin, Nafcillin *Beta-lactam combination agents, such as: Amoxicillin-clavulanic acid, Ampicillin-sulbactam, Piperacillin-tazobactam *Oral cephems, such as: Cefaclor, Cefdinir, Cefpodoxime, Cefprozil, Cefuroxime, Cephalexin, Loracarbef *Parenteral cephems, such as: Cefazolin, Cefepime, Cefotaxime, Cefotetan, Ceftaroline, Ceftizoxime, Ceftriaxone, Cefuroxime *Carbapenems, such as: Doripenem, Ertapenem, Imipenem, Meropenem ANTIMICROBIAL SUSCEPTIBILITY Final Comment S = Susceptible; I = Intermediate; R = Resistant P = Positive; N = Negative MICS are expressed in micrograms per mL Antibiotic RSLT#1 RSLT#2 RSLT#3 RSLT#4 Ciprofloxacin R>=8 Clindamycin S<=0.25 Erythromycin R>=8 Gentamicin S<=0.5 Levofloxacin I =4 Oxacillin S<=0.25 Penicillin R>=0.5 Rifampin S<=0.5 Tetracycline S<=1 CONTINUED ON NEXT PAGE RUN DATE: 08/25/18 PAGE 2 RUN TIME: 1213 [facility] [address] [place] [address] Edward Kent M.D., Career Professional SPEC: [id number] PATIENT: JAMAL BOSE [id number] (Continued) ---- Procedure Result ANTIMICROBIAL SUSCEPTIBILITY Final (continued) Trimethoprim/Sulfa S<=10 Vancomycin S<=0.5 Performed at: DA - [facility] [address], [place], [place] [id number] Powerhouse Tender: NOLBERTO Mauricio MD, Phone: [phone] Objective Assessment GPC bacteremia (POA) staph werbetyi Leukocytosis Multiple wounds Multiple abx allergies h/o c. diff Rectal bleeding and constipation CKD/HD via AV fistula Diabetes Plan Plan of Care vanc x 1 dose, 08/21. continue renal dosing Await GPC ID/susceptibilities Repeat BC from 08/21 pending Monitor WBC/temp Wound care team following cefepime poor intake, encouraged to eat /supplement DANDY LÓPEZ MD August 26, 2018 11:18
[2018-08-26] MEDS: MORPHINE ER 15 MG TABLET.ER PO SCH ×2 (11:22→21:20)
[2018-08-26 11:37] LABS: BASO # 0.1 x10^3/uL (0.0-0.2); BASO % 0 % (0-3); EOS # 0.1 x10^3/uL (0.0-0.7); EOS % 1 % (0-3); HEMATOCRIT 27.8 % (36.0-47.0); HEMOGLOBIN 8.5 g/dL (12.0-15.5); LYMPH # 1.6 x10^3/uL (1.0-4.8); LYMPH % 7 % (24-48); MEAN CORPUSCULAR HEMOGLOBIN 31 pg (25-35); MEAN CORPUSCULAR HGB CONC 31 g/dL (31-37); MEAN CORPUSCULAR VOLUME 100 fL (79-100); MONO # 2.1 x10^3/uL (0.0-1.1); MONO % 9 % (0-9); NEUT # 19.2 x10^3uL (1.8-7.7); NEUT % 83 % (31-73); PLATELET COUNT 244 x10^3/uL (140-400); RED BLOOD COUNT 2.77 x10^6/uL (3.50-5.40); RED CELL DISTRIBUTION WIDTH 17.5 % (11.5-14.5); WHITE BLOOD COUNT 23.1 x10^3/uL (4.0-11.0)
--- NOTE | 2018-08-26 12:24 | PDOC ---
Objective: Vital Signs: Vital Signs Date Time Temp Pulse Resp B/P (MAP) Pulse Ox O2 Delivery O2 Flow Rate FiO2 08/26/18 09:42 125 98/57 08/26/18 08:00 Room Air 08/26/18 07:00 97.9 16 96 97.9 08/25/18 20:00 2.0 Labs: Laboratory Tests Test 08/25/18 17:09 08/25/18 21:19 08/26/18 03:20 08/26/18 08:13 Glucose (Fingerstick) 139 mg/dL 136 mg/dL 34 mg/dL White Blood Count 23.1 x10^3/uL Red Blood Count 2.77 x10^6/uL Hemoglobin 8.5 g/dL Hematocrit 27.8 % Mean Corpuscular Volume 100 fL Mean Corpuscular Hemoglobin 31 pg Mean Corpuscular Hemoglobin Concent 31 g/dL Red Cell Distribution Width 17.5 % Platelet Count 244 x10^3/uL Neutrophils (%) (Auto) 83 % Lymphocytes (%) (Auto) 7 % Monocytes (%) (Auto) 9 % Eosinophils (%) (Auto) 1 % Basophils (%) (Auto) 0 % Neutrophils # (Auto) 19.2 x10^3uL Lymphocytes # (Auto) 1.6 x10^3/uL Monocytes # (Auto) 2.1 x10^3/uL Eosinophils # (Auto) 0.1 x10^3/uL Basophils # (Auto) 0.1 x10^3/uL Sodium Level 136 mmol/L Potassium Level 3.9 mmol/L Chloride Level 99 mmol/L Carbon Dioxide Level 27 mmol/L Anion Gap 10 Blood Urea Nitrogen 47 mg/dL Creatinine 3.9 mg/dL Estimated GFR (Cockcroft-Gault) 12.1 Glucose Level 93 mg/dL Calcium Level 8.8 mg/dL Phosphorus Level 3.2 mg/dL Albumin 1.8 g/dL Test 08/26/18 08:59 Glucose (Fingerstick) 126 mg/dL PE: GEN: dialyzing NEURO/PSYCH: asleep, did not awaken A/P: Bacteremia - Staphylococcus warneri Sacral ulcer Chronic anemia and constipation, suspected gastroparesis -- Continue same per GI. EDDY IGLESIAS August 26, 2018 12:24
--- NOTE | 2018-08-26 13:16 | PDOC ---
SUBJECTIVE ROS Stable OBJECTIVE Vital Signs Vital Signs Date Time Temp Pulse Resp B/P (MAP) Pulse Ox O2 Delivery O2 Flow Rate FiO2 08/26/18 09:42 125 98/57 08/26/18 08:00 Room Air 08/26/18 07:00 97.9 16 96 97.9 08/25/18 20:00 2.0 I & 0 Intake and Output 08/26/18 06:59 Intake Total 550 ml Balance 550 ml Intake Oral 550 ml # Bowel Movements 1 PHYSICAL EXAM Physical Exam GENERAL: NAD HEENT: OM moist NECK: Supple. LUNGS: Clear to auscultation. HEART: S1 and S2. Murmur present. ABDOMEN: Mildly distended, soft and nontender with bowel sounds present. PD catheter in place. EXTREMITIES: No gross edema or cyanosis. Previous left BKA. SKIN: Warm without rash. She has multiple wounds. - No Morales DIAGNOSIS/ASSESSMENT Assessment & Plan ESRD - On HD TTS Seen on HD, tolerating well, continue as ordered Dw drawing in hand she refuses to remove the PD catheter Bacteremia /Leukocytosis /Multiple wounds ID managing Anemia- Chronic Rectal bleeding and constipation GI Following Diabetes Pt wants to continue full aggressive care COMMENT/RELEVANT DATA Meds Current Medications Medications (Trade) Dose Ordered Sig/Martin Start Time Stop Time Status Last Admin Dose Admin Acetaminophen (Tylenol) 500 mg 1X PRN PRN 08/24/18 07:30 08/25/18 07:29 DC Albumin Human 200 ml @ 200 mls/hr 1X PRN PRN 08/24/18 07:30 08/24/18 13:29 DC Albuterol Sulfate (Ventolin Neb Soln) 2.5 mg PRN Q4HRS PRN 08/20/18 09:45 Albuterol/ Ipratropium (Duoneb) 3 ml Q4HRS 08/20/18 12:00 08/26/18 07:41 3 ML Amiodarone HCl (Cordarone) 200 mg DAILY 08/20/18 10:00 08/26/18 09:40 200 MG Aspirin (Children'S Aspirin) 81 mg DAILY 08/20/18 10:00 08/26/18 09:42 81 MG Atorvastatin Calcium (Lipitor) 80 mg QHS 08/20/18 21:00 08/25/18 21:43 80 MG Calcitriol (Rocaltrol) 0.25 mcg DAILY 08/20/18 10:00 08/26/18 09:41 0.25 MCG Carbamazepine (TEGretol) 200 mg BID 08/20/18 10:00 08/26/18 09:41 200 MG Carvedilol (Coreg) 12.5 mg BIDWMEALS 08/20/18 10:00 08/26/18 09:42 12.5 MG Cefepime HCl (Maxipime) 1 gm Q24H 08/24/18 14:30 08/25/18 14:28 1 GM Darbepoetin Mauricio (Aranesp) 60 mcg Fr 08/20/18 21:00 08/20/18 20:25 60 MCG Dextrose (Dextrose 50%-Water Syringe) 12.5 gm PRN Q15MIN PRN 08/20/18 05:00 08/26/18 08:26 25 GM Dextrose/Sodium Chloride 1,000 ml @ 75 mls/hr [id number] 08/23/18 08:45 08/25/18 21:40 75 MLS/HR Diltiazem HCl (Cardizem 24hr Cd) 120 mg DAILY 08/20/18 10:00 08/26/18 09:42 120 MG Diphenhydramine HCl (Benadryl) 25 mg 1X PRN PRN 08/26/18 10:45 08/27/18 10:44 Docusate Sodium (Colace) 100 mg PRN Q8HRS PRN 08/20/18 09:30 Erythromycin (E-Mycin) 250 mg BID 08/20/18 10:00 08/26/18 09:41 250 MG Famotidine (Pepcid) 20 mg HS 08/20/18 21:00 08/25/18 21:44 20 MG Glucose (Insta-Glucose) 15 gm PRN Q15MIN PRN 08/23/18 09:15 Guaifenesin (Mucinex) 600 mg BID 08/20/18 10:00 08/26/18 09:42 600 MG Hydralazine HCl (Apresoline) 10 mg PRN TID PRN 08/20/18 14:00 Hydromorphone HCl (Dilaudid) 1 mg PRN Q4HRS PRN 08/20/18 09:30 08/21/18 05:42 1 MG Info (PHARMACY MONITORING -- do not chart) 1 each PRN DAILY PRN 08/26/18 10:45 UNV Insulin Glargine (Lantus) 15 units QHS 08/20/18 21:00 08/25/18 22:00 15 UNITS Insulin Human Lispro (HumaLOG VIAL) 5 unit TIDWMEALS 08/20/18 12:00 UNV Insulin Human Lispro (HumaLOG) 5 units TIDWMEALS 08/20/18 12:00 08/25/18 18:06 5 UNITS Lactobacillus Rhamnosus (Culturelle) 1 cap BID 08/23/18 21:00 08/26/18 09:40 1 CAP Lidocaine (Lidoderm) 1 patch DAILY 08/20/18 10:00 08/24/18 12:51 1 PATCH Lubiprostone (Amitiza) 24 mcg BIDWMEALS 08/20/18 17:00 08/26/18 09:40 24 MCG Miscellaneous (Lidoderm Patch Removal) 1 ea QHS 08/20/18 21:00 08/23/18 20:57 1 EA Morphine Sulfate (Ms Contin) 30 mg BID 08/20/18 10:00 08/26/18 11:22 15 MG Niacin (Slo-Niacin) 250 mg BID 08/20/18 10:00 08/26/18 09:41 250 MG Non-Formulary Medication (Melatonin ) 9 mg QHS 08/20/18 21:00 UNV Nystatin (Nystop) 1 erich BID 08/20/18 10:00 08/25/18 21:45 1 ERICH Ondansetron HCl (Zofran Odt) 4 mg PRN Q6HRS PRN 08/20/18 09:45 Ondansetron HCl (Zofran) 4 mg PRN Q8HRS PRN 08/20/18 05:00 08/21/18 04:59 DC 08/20/18 07:27 4 MG Oxycodone/ Acetaminophen (Percocet 10/325) 1 tab PRN Q4HRS PRN 08/20/18 12:00 08/24/18 12:46 1 TAB Polyethylene Glycol (miraLAX PACKET) 17 gm BID 08/20/18 21:00 08/25/18 21:44 17 GM Prochlorperazine Maleate (Compazine) 10 mg PRN Q6HRS PRN 08/20/18 09:30 Sevelamer Carbonate (Renvela) 1,600 mg TIDWMEALS 08/20/18 12:00 08/26/18 09:41 1,600 MG Sodium Hypochlorite (Dakin'S 04/30 Strength) 1 erich QODAY 08/25/18 15:30 08/25/18 15:30 1 ERICH Sodium Chloride 1,000 ml @ 400 mls/hr Q2H30M PRN 08/26/18 10:44 08/26/18 22:43 Sodium Chloride ([place] Saline Nasal) 1 erich PRN BID PRN 08/20/18 10:00 Ticagrelor (Brilinta) 90 mg BID 08/20/18 10:00 08/26/18 09:42 90 MG Vancomycin HCl (Vanco Per Pharmacy) 1 each PRN DAILY PRN 08/22/18 11:15 08/25/18 14:04 1 EACH Vancomycin HCl (Vancomycin Random Level) 1 each 1X ONCE 08/24/18 05:00 08/24/18 05:01 DC 08/24/18 05:00 1 EACH Vancomycin HCl 1.5 gm/Sodium Chloride 500 ml @ 250 mls/hr 1X ONCE 08/21/18 10:15 08/21/18 12:14 DC 08/21/18 12:55 250 MLS/HR Vancomycin HCl 500 mg/Sodium Chloride 100 ml @ 100 mls/hr [id number]@1600 08/24/18 16:00 08/24/18 16:00 100 MLS/HR Lab Laboratory Tests Test 08/25/18 17:09 08/25/18 21:19 08/26/18 03:20 08/26/18 08:13 Glucose (Fingerstick) 139 mg/dL (70-99) 136 mg/dL (70-99) 34 mg/dL (70-99) White Blood Count 23.1 x10^3/uL (4.0-11.0) Red Blood Count 2.77 x10^6/uL (3.50-5.40) Hemoglobin 8.5 g/dL (12.0-15.5) Hematocrit 27.8 % (36.0-47.0) Mean Corpuscular Volume 100 fL (79-100) Mean Corpuscular Hemoglobin 31 pg (25-35) Mean Corpuscular Hemoglobin Concent 31 g/dL (31-37) Red Cell Distribution Width 17.5 % (11.5-14.5) Platelet Count 244 x10^3/uL (140-400) Neutrophils (%) (Auto) 83 % (31-73) Lymphocytes (%) (Auto) 7 % (24-48) Monocytes (%) (Auto) 9 % (0-9) Eosinophils (%) (Auto) 1 % (0-3) Basophils (%) (Auto) 0 % (0-3) Neutrophils # (Auto) 19.2 x10^3uL (1.8-7.7) Lymphocytes # (Auto) 1.6 x10^3/uL (1.0-4.8) Monocytes # (Auto) 2.1 x10^3/uL (0.0-1.1) Eosinophils # (Auto) 0.1 x10^3/uL (0.0-0.7) Basophils # (Auto) 0.1 x10^3/uL (0.0-0.2) Sodium Level 136 mmol/L (136-145) Potassium Level 3.9 mmol/L (3.5-5.1) Chloride Level 99 mmol/L (98-107) Carbon Dioxide Level 27 mmol/L (21-32) Anion Gap 10 (6-14) Blood Urea Nitrogen 47 mg/dL (7-20) Creatinine 3.9 mg/dL (0.6-1.0) Estimated GFR (Cockcroft-Gault) 12.1 Glucose Level 93 mg/dL (70-99) Calcium Level 8.8 mg/dL (8.5-10.1) Phosphorus Level 3.2 mg/dL (2.6-4.7) Albumin 1.8 g/dL (3.4-5.0) Test 08/26/18 08:59 Glucose (Fingerstick) 126 mg/dL (70-99) Results All relevant outside records, renal labs, imaging studies, telemetry/EKG's were reviewed. HEMANT SCHAEFER MD August 26, 2018 13:16
--- NOTE | 2018-08-26 13:24 | PDOC ---
[facility] [employer] DEVELOPER 08/26/18 1324: SURGICAL PROGRESS NOTE Subjective seen during dialysis Vital Signs Vital Signs Date Time Temp Pulse Resp B/P (MAP) Pulse Ox O2 Delivery O2 Flow Rate FiO2 08/26/18 09:42 125 98/57 08/26/18 08:00 Room Air 08/26/18 07:00 97.9 16 96 97.9 08/25/18 20:00 2.0 I&O Intake and Output 08/26/18 06:59 Intake Total 550 ml Balance 550 ml Intake Oral 550 ml # Bowel Movements 1 General: Cooperative, No acute distress Skin: Other (multiple wounds) Labs Laboratory Tests Test 08/24/18 16:52 08/24/18 21:40 08/25/18 07:37 08/25/18 12:12 Glucose (Fingerstick) 179 mg/dL (70-99) 188 mg/dL (70-99) 196 mg/dL (70-99) 169 mg/dL (70-99) Test 08/25/18 17:09 08/25/18 21:19 08/26/18 03:20 08/26/18 08:13 Glucose (Fingerstick) 139 mg/dL (70-99) 136 mg/dL (70-99) 34 mg/dL (70-99) White Blood Count 23.1 x10^3/uL (4.0-11.0) Red Blood Count 2.77 x10^6/uL (3.50-5.40) Hemoglobin 8.5 g/dL (12.0-15.5) Hematocrit 27.8 % (36.0-47.0) Mean Corpuscular Volume 100 fL (79-100) Mean Corpuscular Hemoglobin 31 pg (25-35) Mean Corpuscular Hemoglobin Concent 31 g/dL (31-37) Red Cell Distribution Width 17.5 % (11.5-14.5) Platelet Count 244 x10^3/uL (140-400) Neutrophils (%) (Auto) 83 % (31-73) Lymphocytes (%) (Auto) 7 % (24-48) Monocytes (%) (Auto) 9 % (0-9) Eosinophils (%) (Auto) 1 % (0-3) Basophils (%) (Auto) 0 % (0-3) Neutrophils # (Auto) 19.2 x10^3uL (1.8-7.7) Lymphocytes # (Auto) 1.6 x10^3/uL (1.0-4.8) Monocytes # (Auto) 2.1 x10^3/uL (0.0-1.1) Eosinophils # (Auto) 0.1 x10^3/uL (0.0-0.7) Basophils # (Auto) 0.1 x10^3/uL (0.0-0.2) Sodium Level 136 mmol/L (136-145) Potassium Level 3.9 mmol/L (3.5-5.1) Chloride Level 99 mmol/L (98-107) Carbon Dioxide Level 27 mmol/L (21-32) Anion Gap 10 (6-14) Blood Urea Nitrogen 47 mg/dL (7-20) Creatinine 3.9 mg/dL (0.6-1.0) Estimated GFR (Cockcroft-Gault) 12.1 Glucose Level 93 mg/dL (70-99) Calcium Level 8.8 mg/dL (8.5-10.1) Phosphorus Level 3.2 mg/dL (2.6-4.7) Albumin 1.8 g/dL (3.4-5.0) Test 08/26/18 08:59 Glucose (Fingerstick) 126 mg/dL (70-99) Laboratory Tests Test 08/25/18 17:09 08/25/18 21:19 08/26/18 03:20 08/26/18 08:13 Glucose (Fingerstick) 139 mg/dL (70-99) 136 mg/dL (70-99) 34 mg/dL (70-99) White Blood Count 23.1 x10^3/uL (4.0-11.0) Red Blood Count 2.77 x10^6/uL (3.50-5.40) Hemoglobin 8.5 g/dL (12.0-15.5) Hematocrit 27.8 % (36.0-47.0) Mean Corpuscular Volume 100 fL (79-100) Mean Corpuscular Hemoglobin 31 pg (25-35) Mean Corpuscular Hemoglobin Concent 31 g/dL (31-37) Red Cell Distribution Width 17.5 % (11.5-14.5) Platelet Count 244 x10^3/uL (140-400) Neutrophils (%) (Auto) 83 % (31-73) Lymphocytes (%) (Auto) 7 % (24-48) Monocytes (%) (Auto) 9 % (0-9) Eosinophils (%) (Auto) 1 % (0-3) Basophils (%) (Auto) 0 % (0-3) Neutrophils # (Auto) 19.2 x10^3uL (1.8-7.7) Lymphocytes # (Auto) 1.6 x10^3/uL (1.0-4.8) Monocytes # (Auto) 2.1 x10^3/uL (0.0-1.1) Eosinophils # (Auto) 0.1 x10^3/uL (0.0-0.7) Basophils # (Auto) 0.1 x10^3/uL (0.0-0.2) Sodium Level 136 mmol/L (136-145) Potassium Level 3.9 mmol/L (3.5-5.1) Chloride Level 99 mmol/L (98-107) Carbon Dioxide Level 27 mmol/L (21-32) Anion Gap 10 (6-14) Blood Urea Nitrogen 47 mg/dL (7-20) Creatinine 3.9 mg/dL (0.6-1.0) Estimated GFR (Cockcroft-Gault) 12.1 Glucose Level 93 mg/dL (70-99) Calcium Level 8.8 mg/dL (8.5-10.1) Phosphorus Level 3.2 mg/dL (2.6-4.7) Albumin 1.8 g/dL (3.4-5.0) Test 08/26/18 08:59 Glucose (Fingerstick) 126 mg/dL (70-99) Assessment/Plan sacral decub wound care following poor surgical candidate will review with CECE Peguero MD 08/26/18 1630: SURGICAL PROGRESS NOTE Assessment/Plan Pt seen and wound examined; will need debridement, agree very poor surgical candidate. Pt wishes to proceed; will try for tomorrow MARIS [employer] August 26, 2018 13:24 CECE JOVEL MD August 26, 2018 16:30
--- NOTE | 2018-08-26 13:46 | PDOC ---
PROGRESS NOTES Chief Complaint Chief Complaint sepsis rectal bleeding opioid induced constipation, recent impaction, relistor? GI consult Dm1 CAD, ESRD chronic elevated troponin s/p BKA, poorly mobile acute on chronic pain, opioid dependence Guarded prognosis History of Present Illness History of Present Illness Pt seen and examined. Looks EXTREMELY sick. Room smells of wounds She is currently on dialysis Discussed her long-term goals with her and she originally said she would be DNR I signed the papers but then she refused to sign DW RN and palliative care nurse Vitals Vitals Vital Signs Date Time Temp Pulse Resp B/P (MAP) Pulse Ox O2 Delivery O2 Flow Rate FiO2 08/26/18 09:42 125 98/57 08/26/18 08:00 Room Air 08/26/18 07:00 97.9 16 96 97.9 08/25/18 20:00 2.0 Physical Exam Physical Exam GENERAL: Minimal responce HEENT: Normal conjunctivae. Oral cavity: Pharynx dry. NECK: Supple. LUNGS: Clear to auscultation. HEART: S1 and S2. Murmur present. Buttock: Large wound EXTREMITIES: No gross edema or cyanosis. Previous left BKA. SKIN: Warm without rash. She has multiple wounds. General: Cooperative, No acute distress Heart: Regular rate, Normal S1, Normal S2 Lungs: Clear, Other Abdomen: Soft, No tenderness Extremities: Other (amputation) Skin: Other (multiple wounds) Labs LABS Laboratory Tests Test 08/25/18 17:09 08/25/18 21:19 08/26/18 03:20 08/26/18 08:13 Glucose (Fingerstick) 139 mg/dL (70-99) 136 mg/dL (70-99) 34 mg/dL (70-99) White Blood Count 23.1 x10^3/uL (4.0-11.0) Red Blood Count 2.77 x10^6/uL (3.50-5.40) Hemoglobin 8.5 g/dL (12.0-15.5) Hematocrit 27.8 % (36.0-47.0) Mean Corpuscular Volume 100 fL (79-100) Mean Corpuscular Hemoglobin 31 pg (25-35) Mean Corpuscular Hemoglobin Concent 31 g/dL (31-37) Red Cell Distribution Width 17.5 % (11.5-14.5) Platelet Count 244 x10^3/uL (140-400) Neutrophils (%) (Auto) 83 % (31-73) Lymphocytes (%) (Auto) 7 % (24-48) Monocytes (%) (Auto) 9 % (0-9) Eosinophils (%) (Auto) 1 % (0-3) Basophils (%) (Auto) 0 % (0-3) Neutrophils # (Auto) 19.2 x10^3uL (1.8-7.7) Lymphocytes # (Auto) 1.6 x10^3/uL (1.0-4.8) Monocytes # (Auto) 2.1 x10^3/uL (0.0-1.1) Eosinophils # (Auto) 0.1 x10^3/uL (0.0-0.7) Basophils # (Auto) 0.1 x10^3/uL (0.0-0.2) Sodium Level 136 mmol/L (136-145) Potassium Level 3.9 mmol/L (3.5-5.1) Chloride Level 99 mmol/L (98-107) Carbon Dioxide Level 27 mmol/L (21-32) Anion Gap 10 (6-14) Blood Urea Nitrogen 47 mg/dL (7-20) Creatinine 3.9 mg/dL (0.6-1.0) Estimated GFR (Cockcroft-Gault) 12.1 Glucose Level 93 mg/dL (70-99) Calcium Level 8.8 mg/dL (8.5-10.1) Phosphorus Level 3.2 mg/dL (2.6-4.7) Albumin 1.8 g/dL (3.4-5.0) Test 08/26/18 08:59 Glucose (Fingerstick) 126 mg/dL (70-99) Review of Systems Review of Systems She complains of weakness and hunger Assessment and Plan Assessmemt and Plan sepsis rectal bleeding opioid induced constipation, recent impaction, relistor? GI consult Dm1 CAD, ESRD chronic elevated troponin s/p BKA, poorly mobile acute on chronic pain, opioid dependence Guarded prognosis Plan We'll continue with hemodialysis per patient request but I personally think she should stop and be on hospice Arin Vail is going to talk to the family and her DPOA Frequent labs When necessary Zofran DVT prophylaxis Home meds Prognosis appears terminal in my opinion Comment Review of Relevant I have reviewed the following items bert (where applicable) has been applied. Labs Laboratory Tests Test 08/24/18 16:52 08/24/18 21:40 08/25/18 07:37 08/25/18 12:12 Glucose (Fingerstick) 179 mg/dL (70-99) 188 mg/dL (70-99) 196 mg/dL (70-99) 169 mg/dL (70-99) Test 08/25/18 17:09 08/25/18 21:19 08/26/18 03:20 08/26/18 08:13 Glucose (Fingerstick) 139 mg/dL (70-99) 136 mg/dL (70-99) 34 mg/dL (70-99) White Blood Count 23.1 x10^3/uL (4.0-11.0) Red Blood Count 2.77 x10^6/uL (3.50-5.40) Hemoglobin 8.5 g/dL (12.0-15.5) Hematocrit 27.8 % (36.0-47.0) Mean Corpuscular Volume 100 fL (79-100) Mean Corpuscular Hemoglobin 31 pg (25-35) Mean Corpuscular Hemoglobin Concent 31 g/dL (31-37) Red Cell Distribution Width 17.5 % (11.5-14.5) Platelet Count 244 x10^3/uL (140-400) Neutrophils (%) (Auto) 83 % (31-73) Lymphocytes (%) (Auto) 7 % (24-48) Monocytes (%) (Auto) 9 % (0-9) Eosinophils (%) (Auto) 1 % (0-3) Basophils (%) (Auto) 0 % (0-3) Neutrophils # (Auto) 19.2 x10^3uL (1.8-7.7) Lymphocytes # (Auto) 1.6 x10^3/uL (1.0-4.8) Monocytes # (Auto) 2.1 x10^3/uL (0.0-1.1) Eosinophils # (Auto) 0.1 x10^3/uL (0.0-0.7) Basophils # (Auto) 0.1 x10^3/uL (0.0-0.2) Sodium Level 136 mmol/L (136-145) Potassium Level 3.9 mmol/L (3.5-5.1) Chloride Level 99 mmol/L (98-107) Carbon Dioxide Level 27 mmol/L (21-32) Anion Gap 10 (6-14) Blood Urea Nitrogen 47 mg/dL (7-20) Creatinine 3.9 mg/dL (0.6-1.0) Estimated GFR (Cockcroft-Gault) 12.1 Glucose Level 93 mg/dL (70-99) Calcium Level 8.8 mg/dL (8.5-10.1) Phosphorus Level 3.2 mg/dL (2.6-4.7) Albumin 1.8 g/dL (3.4-5.0) Test 08/26/18 08:59 Glucose (Fingerstick) 126 mg/dL (70-99) Laboratory Tests Test 08/25/18 17:09 08/25/18 21:19 08/26/18 03:20 08/26/18 08:13 Glucose (Fingerstick) 139 mg/dL (70-99) 136 mg/dL (70-99) 34 mg/dL (70-99) White Blood Count 23.1 x10^3/uL (4.0-11.0) Red Blood Count 2.77 x10^6/uL (3.50-5.40) Hemoglobin 8.5 g/dL (12.0-15.5) Hematocrit 27.8 % (36.0-47.0) Mean Corpuscular Volume 100 fL (79-100) Mean Corpuscular Hemoglobin 31 pg (25-35) Mean Corpuscular Hemoglobin Concent 31 g/dL (31-37) Red Cell Distribution Width 17.5 % (11.5-14.5) Platelet Count 244 x10^3/uL (140-400) Neutrophils (%) (Auto) 83 % (31-73) Lymphocytes (%) (Auto) 7 % (24-48) Monocytes (%) (Auto) 9 % (0-9) Eosinophils (%) (Auto) 1 % (0-3) Basophils (%) (Auto) 0 % (0-3) Neutrophils # (Auto) 19.2 x10^3uL (1.8-7.7) Lymphocytes # (Auto) 1.6 x10^3/uL (1.0-4.8) Monocytes # (Auto) 2.1 x10^3/uL (0.0-1.1) Eosinophils # (Auto) 0.1 x10^3/uL (0.0-0.7) Basophils # (Auto) 0.1 x10^3/uL (0.0-0.2) Sodium Level 136 mmol/L (136-145) Potassium Level 3.9 mmol/L (3.5-5.1) Chloride Level 99 mmol/L (98-107) Carbon Dioxide Level 27 mmol/L (21-32) Anion Gap 10 (6-14) Blood Urea Nitrogen 47 mg/dL (7-20) Creatinine 3.9 mg/dL (0.6-1.0) Estimated GFR (Cockcroft-Gault) 12.1 Glucose Level 93 mg/dL (70-99) Calcium Level 8.8 mg/dL (8.5-10.1) Phosphorus Level 3.2 mg/dL (2.6-4.7) Albumin 1.8 g/dL (3.4-5.0) Test 08/26/18 08:59 Glucose (Fingerstick) 126 mg/dL (70-99) Microbiology 08/21/18 Blood Culture - Final, Complete NO GROWTH AFTER 5 DAYS Medications Current Medications Sodium Chloride 1,000 ml @ 1,000 mls/hr 1X ONCE IV Last administered on 08/20/18 04:28; Start 08/20/18 at 03:00; Stop 08/20/18 at 03:59; Status DC Cefepime HCl (Maxipime) 2 gm 1X ONCE IVP Last administered on 08/20/18at 04:28; Start 08/20/18 at 03:00; Stop 08/20/18 at 03:01; Status DC Ondansetron HCl (Zofran) 4 mg PRN Q8HRS PRN IV NAUSEA/VOMITING 1ST CHOICE Last administered on 08/20/18at 07:27; Start 08/20/18 at 05:00; Stop 08/21/18 at 04:59; Status DC Insulin Human Lispro (HumaLOG) 0-5 UNITS TIDWMEALS SQ Last administered on 08/25/18at 12:41; Start 08/20/18 at 08:00 Dextrose (Dextrose 50%-Water Syringe) 12.5 gm PRN Q15MIN PRN IV SEE COMMENTS Last administered on 08/26/18 08:26; Start 08/20/18 at 05:00 Acetaminophen (Tylenol) 650 mg PRN Q6HRS PRN PO MILD PAIN / TEMP; Start 08/20/18 at 09:30 Amiodarone HCl (Cordarone) 200 mg DAILY PO Last administered on 08/26/18 09:40; Start 08/20/18 at 10:00 Aspirin (Children'S Aspirin) 81 mg DAILY PO Last administered on 08/26/18 09:42; Start 08/20/18 at 10:00 Carbamazepine (TEGretol) 200 mg BID PO Last administered on 08/26/18 09:41; Start 08/20/18 at 10:00 Carvedilol (Coreg) 12.5 mg BIDWMEALS PO Last administered on 08/26/18 09:42; Start 08/20/18 at 10:00 Docusate Sodium (Colace) 100 mg PRN Q8HRS PRN PO CONSTIPATION; Start 08/20/18 at 09:30 Famotidine (Pepcid) 20 mg HS PO Last administered on 08/25/18 21:44; Start 08/20/18 at 21:00 Guaifenesin (Mucinex) 600 mg BID PO Last administered on 08/26/18 09:42; Start 08/20/18 at 10:00 Insulin Glargine (Lantus) 15 units QHS SQ Last administered on 08/25/18 22:00; Start 08/20/18 at 21:00 Insulin Human Lispro (HumaLOG) 5 units TIDWMEALS SQ Last administered on 08/25/18 18:06; Start 08/20/18 at 12:00 Insulin Human Lispro (HumaLOG VIAL) 5 unit TIDWMEALS SQ ; Start 08/20/18 at 12:00; Status UNV Albuterol/ Ipratropium (Duoneb) 3 ml Q4HRS NEB Last administered on 08/26/18 07:41; Start 08/20/18 at 12:00 Albuterol Sulfate (Ventolin Neb Soln) 2.5 mg PRN Q4HRS PRN NEB SHORTNESS OF BREATH; Start 08/20/18 at 09:45 Morphine Sulfate (Ms Contin) 30 mg BID PO Last administered on 08/26/18 11:22; Start 08/20/18 at 10:00 Nystatin (Nystop) 1 susanna BID TP Last administered on 08/25/18 21:45; Start 08/20/18 at 10:00 Oxycodone/ Acetaminophen (Percocet 10/325) 1 tab PRN Q4HRS PRN PO MODERATE - SEVERE PAIN Last administered on 08/24/18 12:46; Start 08/20/18 at 12:00 Prochlorperazine Maleate (Compazine) 10 mg PRN Q6HRS PRN PO NAUSEA/VOMITING; Start 08/20/18 at 09:30 Sevelamer Carbonate (Renvela) 1,600 mg TIDWMEALS PO Last administered on 08/26/18 09:41; Start 08/20/18 at 12:00 Ticagrelor (Brilinta) 90 mg BID PO Last administered on 08/26/18 09:42; Start 08/20/18 at 10:00 Atorvastatin Calcium (Lipitor) 80 mg QHS PO Last administered on 08/25/18 21:43; Start 08/20/18 at 21:00 Calcitriol (Rocaltrol) 0.25 mcg DAILY PO Last administered on 08/26/18 09:41; Start 08/20/18 at 10:00 Diltiazem HCl (Cardizem 24hr Cd) 120 mg DAILY PO Last administered on 08/26/18 09:42; Start 08/20/18 at 10:00 Erythromycin (E-Mycin) 250 mg BID PO Last administered on 08/26/18 09:41; Start 08/20/18 at 10:00 Hydralazine HCl (Apresoline) 10 mg PRN TID PRN PO ELEVATED BP; Start 08/20/18 at 14:00 Lidocaine (Lidoderm) 1 patch DAILY TD Last administered on 08/24/18 12:51; Start 08/20/18 at 10:00 Non-Formulary Medication (Melatonin ) 9 mg QHS PO ; Start 08/20/18 at 21:00; Status UNV Niacin (Slo-Niacin) 250 mg BID PO Last administered on 5/2/19at 09:41; Start 08/20/18 at 10:00 Ondansetron HCl (Zofran Odt) 4 mg PRN Q6HRS PRN PO NAUSEA/VOMITING, 1ST CHOICE; Start 08/20/18 at 09:45 Polyethylene Glycol (miraLAX PACKET) 17 gm PRN Q8HRS PRN PO CONSTIPATION; Start 08/20/18 at 09:42; Stop 08/20/18 at 12:24; Status DC Sodium Chloride ([place] Saline Nasal) 1 susanna PRN BID PRN NS NASAL CONGESTION; Start 08/20/18 at 10:00 Hydromorphone HCl (Dilaudid) 1 mg PRN Q4HRS PRN IVP PAIN Last administered on 08/21/18at 05:42; Start 08/20/18 at 09:30 Miscellaneous (Lidoderm Patch Removal) 1 ea QHS MC Last administered on 08/23/18at 20:57; Start 08/20/18 at 21:00 Darbepoetin Mauricio (Aranesp) 60 mcg Fr SQ Last administered on 08/20/18at 20:25; Start 08/20/18 at 21:00 Polyethylene Glycol (miraLAX PACKET) 17 gm BID PO Last administered on 08/25/18at 21:44; Start 08/20/18 at 21:00 Lubiprostone (Amitiza) 24 mcg BIDWMEALS PO Last administered on 08/26/18at 09:40; Start 08/20/18 at 17:00 Sodium Chloride 1,000 ml @ 1,000 mls/hr Q1H PRN IV hypotension; Start 08/21/18 at 09:50; Stop 08/21/18 at 15:49; Status DC Info (PHARMACY MONITORING -- do not chart) 1 each PRN DAILY PRN MC SEE COMMENTS; Start 08/21/18 at 10:00; Status UNV Info (PHARMACY MONITORING -- do not chart) 1 each PRN DAILY PRN MC SEE COMMENTS; Start 08/21/18 at 10:00 Vancomycin HCl 500 mg/Sodium Chloride 100 ml @ 100 mls/hr 1X ONCE IV ; Start 08/21/18 at 12:00; Stop 08/21/18 at 12:59; Status UNV Vancomycin HCl 1.5 gm/Sodium Chloride 500 ml @ 250 mls/hr 1X ONCE IV Last administered on 08/21/18at 12:55; Start 08/21/18 at 10:15; Stop 08/21/18 at 12:14; Status DC Vancomycin HCl (Vanco Per Pharmacy) 1 each PRN DAILY PRN MC SEE COMMENTS Last administered on 08/25/18at 14:04; Start 08/22/18 at 11:15 Vancomycin HCl 500 mg/Sodium Chloride 100 ml @ 100 mls/hr TuThSa@1600 IV Last administered on 08/24/18at 16:00; Start 08/24/18 at 16:00 Vancomycin HCl (Vancomycin Random Level) 1 each 1X ONCE MC Last administered on 08/24/18at 05:00; Start 08/24/18 at 05:00; Stop 08/24/18 at 05:01; Status DC Glucose (Insta-Glucose) 15 gm STK-MED ONCE .ROUTE ; Start 08/23/18 at 07:42; Stop 08/23/18 at 07:43; Status DC Dextrose/Sodium Chloride 1,000 ml @ 75 mls/hr [id number] IV Last administered on 08/25/18at 21:40; Start 08/23/18 at 08:45 Glucose (Insta-Glucose) 15 gm PRN Q15MIN PRN PO LOW BLOOD SUGAR; Start 08/23/18 at 09:15 Lactobacillus Rhamnosus (Culturelle) 1 cap BID PO Last administered on 08/26/18at 09:40; Start 08/23/18 at 21:00 Sodium Chloride 1,000 ml @ 1,000 mls/hr Q1H PRN IV hypotension; Start 08/24/18 at 07:28; Stop 08/24/18 at 13:27; Status DC Albumin Human 200 ml @ 200 mls/hr 1X PRN PRN IV Hypotension; Start 08/24/18 at 07:30; Stop 08/24/18 at 13:29; Status DC Acetaminophen (Tylenol) 500 mg 1X PRN PRN PO MILD PAIN / TEMP; Start 08/24/18 at 07:30; Stop 08/25/18 at 07:29; Status DC Diphenhydramine HCl (Benadryl) 25 mg 1X PRN PRN IV ITCHING; Start 08/24/18 at 07:30; Stop 08/25/18 at 07:29; Status DC Diphenhydramine HCl (Benadryl) 25 mg 1X PRN PRN IV ITCHING; Start 08/24/18 at 07:30; Stop 08/25/18 at 07:29; Status DC Sodium Chloride 1,000 ml @ 400 mls/hr Q2H30M PRN IV PATENCY; Start 08/24/18 at 07:28; Stop 08/24/18 at 19:27; Status DC Info (PHARMACY MONITORING -- do not chart) 1 each PRN DAILY PRN MC SEE COMMENTS; Start 08/24/18 at 07:30; Status UNV Cefepime HCl (Maxipime) 1 gm Q24H IVP Last administered on 08/25/18at 14:28; Start 08/24/18 at 14:30 Sodium Hypochlorite (Dakin'S 1/4 Strength) 1 susanna QODAY TP Last administered on 08/25/18at 15:30; Start 08/25/18 at 15:30 Sodium Chloride 1,000 ml @ 1,000 mls/hr Q1H PRN IV hypotension; Start 08/26/18 at 10:44; Stop 08/26/18 at 16:43 Diphenhydramine HCl (Benadryl) 25 mg 1X PRN PRN IV ITCHING; Start 08/26/18 at 10:45; Stop 08/27/18 at 10:44 Diphenhydramine HCl (Benadryl) 25 mg 1X PRN PRN IV ITCHING; Start 08/26/18 at 10:45; Stop 08/27/18 at 10:44 Sodium Chloride 1,000 ml @ 400 mls/hr Q2H30M PRN IV PATENCY; Start 08/26/18 at 10:44; Stop 08/26/18 at 22:43 Info (PHARMACY MONITORING -- do not chart) 1 each PRN DAILY PRN MC SEE COMMENTS; Start 08/26/18 at 10:45; Status UNV Active Scripts Active Nystop (Nystatin) 60 Gm Powder 1 Susanna TP BID MDD 1 Morphine Sulfate Er (Morphine Sulfate) 30 Mg Tablet.er 1 Tab PO BID MDD 1 Tramadol Hcl 50 Mg Tablet 50 Mg PO Q4HRS PRN MDD 1 Brilinta (Ticagrelor) 90 Mg Tablet 90 Mg PO BID 30 Days Reported Zofran (Ondansetron Hcl) 4 Mg Tablet 1 Tab PO Q6HRS Lidocaine 1 Each Adh..patch 1 Each TP DAILY Duoneb 0.5-3(2.5) Mg/3 Ml (Albuterol/Ipratropium) 3 Ml Ampul.neb 3 Ml NEB Q4HRS Uriel-Tab (Erythromycin Base) 250 Mg Tablet.dr 250 Mg PO BID Diltiazem 24HR Cd (Diltiazem Hcl) 120 Mg Cap.er.24h 1 Cap PO DAILY Carvedilol (Carvedilol) 12.5 Mg Tablet 12.5 Mg PO BIDWMEALS Tylenol (Acetaminophen) 325 Mg Tablet 2 Tab PO PRN Q6HRS Oxycodone-Acetaminophen 10-325 (Oxycodone Hcl/Acetaminophen) 1 Each Tablet 1 Tab PO Q4HRS Renvela (Sevelamer Carbonate) 800 Mg Tablet 2 Tab PO TID Melatonin 3 Mg Tablet 9 Mg PO QHS Lantus Solostar (Insulin Glargine,Hum.rec.anlog) 100 Unit/1 Ml Insuln.pen 15 Unit SQ QHS Duoneb 0.5-3(2.5) Mg/3 Ml (Albuterol/Ipratropium) 3 Ml Ampul.neb 3 Ml NEB QID PRN Humalog (Insulin Lispro) 100 Unit/1 Ml Vial 0 SQ TID Humalog (Insulin Lispro) 100 Unit/1 Ml Vial 5 Unit SQ TIDWMEALS Guaifenesin 600 Mg Tablet.er 600 Mg PO BID [place] Saline (Sodium Chloride) 50 Ml [place] 1 [place] NS BID PRN Acetaminophen 500 Mg Tablet 650 Mg PO Q6HRS PRN Aspirin 81 Mg Tab.chew 1 Tab PO DAILY Calcitriol 0.25 Mcg Capsule 1 Cap PO DAILY Pepcid (Famotidine) 20 Mg Tablet 20 Mg PO HS Niacin 250 Mg Tablet 250 Mg PO BID Miralax (Polyethylene Glycol 3350) 17 Gm Powd.pack 1 Packet PO Q 8HRS PRN Hydralazine Hcl 10 Mg Tablet 1 Tab PO PRN TID PRN Ferrous Sulfate 325 Mg Tablet 1 Tab PO DAILY Diphenhydramine Hcl 50 Mg Capsule 1 Cap PO PRN Q8HRS PRN Prochlorperazine Maleate 10 Mg Tablet 1 Tab PO PRN Q6HRS PRN Tegretol (Carbamazepine) 200 Mg Tablet 1 Tab PO BID Amiodarone Hcl 200 Mg Tablet 1 Tab PO DAILY Lipitor (Atorvastatin Calcium) 80 Mg Tablet 80 Mg PO HS Docusate Sodium 100 Mg Capsule 1 Cap PO Q8HRS PRN Vitals/I & O Vital Sign - Last 24 Hours 08/25/18 08/25/18 08/25/18 08/25/18 15:00 15:25 17:00 19:00 Temp 98.2 97.9 98.2 97.9 Pulse 109 109 115 Resp 18 16 B/P (MAP) 85/43 (57) 85/43 85/49 (61) Pulse Ox 97 99 O2 Delivery Room Air Room Air Room Air 08/25/18 08/25/18 08/25/18 08/25/18 20:00 20:53 21:43 23:00 Temp 99.0 99.0 Pulse 125 Resp 16 B/P (MAP) 81/48 (59) Pulse Ox 98 95 O2 Delivery Room Air Room Air Room Air Room Air O2 Flow Rate 2.0 08/26/18 08/26/18 08/26/18 08/26/18 00:34 01:43 03:00 07:00 Temp 97.9 97.9 97.9 97.9 Pulse 130 125 Resp 14 16 B/P (MAP) 92/63 (73) 112/68 (83) 98/57 (71) Pulse Ox 100 96 O2 Delivery Room Air Room Air Room Air 08/26/18 08/26/18 08/26/18 08/26/18 07:41 08:00 09:40 09:42 Pulse 125 125 B/P (MAP) 98/57 98/57 O2 Delivery Room Air Room Air 08/26/18 09:42 Pulse 125 B/P (MAP) 98/57 Intake and Output 08/25/18 08/25/18 08/26/18 14:59 22:59 06:59 Intake Total 120 ml 350 ml 80 ml Balance 120 ml 350 ml 80 ml Nutrition Consultation Dietary Evaluation: Recommendations by RD: Increase Calorie Intake, Protein supplementation Comments: continue to encourage po intake nepro and ifeoma for wounds Expected Outcomes/Goals: to meet > 50% est nutr needs via po intake, - met at times, goal ongoing Interpretation of weight loss: >10% in 6 months Malnutrition Findings: Body Fat Depletion (Non Severe: Mild Depletion Weight Status: Underweight CASTLE,NIAL K III DO August 26, 2018 13:46
[2018-08-26] MEDS: VANCOMYCIN PER PHARMACY MC PRN (14:27)
[2018-08-26] MEDS: CEFEPIME HCL IV Push 1 GM VIAL. IVP SCH (14:30)
--- NOTE | 2018-08-26 14:57 | PDOC2 ---
PALLIATIVE CARE Palliative Care Note Palliative Care Patient with periods where she is drowsy alternating with periods of being alert and oriented. Spoke with patient and Negra/LEOPOLDO. Patient stated she would want Bruce(friend) Negra and Chichi(sister) to make decisions if she was unable Discussed need with patient and Negra to review medical condition. Dr. Cheatham discussed medical condition with patient while in dialysis. Patient stated she did not want resuscitation. Patient was provided Outside the Hospital DNR/DNI form and she stated she was not ready to sign it. Will attempt to confirm her wishes. Spoke with Bruce MINA/friend. She is available to meet tomorrow and bring Negra for family meeting. Will attempt to reach Chichi sister for meeting. [id number] Attempted to reach Chichi [phone] and [phone] No answer Contact # Negra [phone] Bruce: [phone] LISSETTE ROLDAN August 26, 2018 14:57
[2018-08-26] MEDS: VANCOMYCIN 500 MG in IV NORMAL SALINE 100ML 100 ML IV SCH (15:54)
[2018-08-26] MEDS: IV DEXTROSE 5 %-0.45 % NACL 1,000 ML IV SCH (16:00)
--- NOTE | 2018-08-26 18:37 | NUR ---
Today as the day progressed, Deepali's alertness and orientation became more frequent and for longer periods of time. She was not only aware of her surroundings, but also remembered progressively throughout the day what had happened. Some confusion. She also ate more protein, and wanted to consume more of the [place] Butter Pecan.
[2018-08-26 19:45] VITALS: BP 120/56
[2018-08-26] MEDS: PATCH REMOVAL. MC SCH (21:00)
[2018-08-26] MEDS: INSULIN GLARGINE 300 UNITS/3 ML INSULN.PEN. SQ SCH (21:00)
[2018-08-26] MEDS: ATORVASTATIN CALCIUM 40 MG TABLET. PO SCH (21:19)
[2018-08-26] MEDS: FAMOTIDINE 20 MG TABLET. PO SCH (21:19)
[2018-08-26 23:03] VITALS: BP 125/57
[2018-08-27] VITALS (15 sets, daily range): BP systolic 98–122; BP diastolic 51–68
[2018-08-27] MEDS: IPRATRPIUM/ALBUTEROL 0.5/2.5MG 3 ML NEBU. NEB SCH ×7 (04:00→23:44)
[2018-08-27 05:12] LABS: ALBUMIN 1.7 g/dL (3.4-5.0); CALCIUM 8.6 mg/dL (8.5-10.1); CREATININE 2.8 mg/dL (0.6-1.0); GFR 17.7; POTASSIUM 3.9 mmol/L (3.5-5.1)
[2018-08-27 05:44] LABS: PHOSPHORUS 2.3 mg/dL (2.6-4.7)
[2018-08-27] MEDS: INSULIN LISPRO 300 UNITS/3 ML INSULN.PEN. SQ SCH ×4 (08:00→12:00)
[2018-08-27] MEDS: SEVELAMER CARBONATE 800 MG TABLET. PO SCH ×3 (08:00→17:30)
[2018-08-27] MEDS: LUBIPROSTONE 8 MCG CAPSULE PO SCH ×2 (08:00→17:31)
[2018-08-27] MEDS: CARVEDILOL 12.5 MG TABLET. PO SCH ×2 (08:41→17:00)
[2018-08-27] MEDS: LIDOCAINE (700MG/PATCH) PATCH. TD SCH (09:00)
[2018-08-27] MEDS: ERYTHROMYCIN BASE 250 MG TABLET PO SCH ×2 (09:00→21:20)
[2018-08-27] MEDS: TICAGRELOR 90 MG TABLET. PO SCH ×2 (09:00→21:20)
[2018-08-27] MEDS: NIACIN ER 250 MG TABLET.ER PO SCH ×2 (09:00→21:00)
[2018-08-27] MEDS: AMIODARONE HCL 200 MG TABLET. PO SCH (09:00)
[2018-08-27] MEDS: MORPHINE ER 15 MG TABLET.ER PO SCH ×2 (09:00→21:21)
[2018-08-27] MEDS: carBAMazepine 200 MG TABLET PO SCH ×2 (09:00→21:20)
[2018-08-27] MEDS: POLYETHYLENE GLYCOL 3350 17 GM PACKET. PO SCH ×2 (09:00→21:00)
[2018-08-27] MEDS: NYSTATIN TOPICAL POWDER 15GM BOTTLE. TP SCH ×2 (09:00→21:00)
[2018-08-27] MEDS: SODIUM HYPOCHLORITE 0.125% 473 ML BOTTLE. TP SCH (09:00)
[2018-08-27] MEDS: CALCITRIOL 0.25 MCG CAPSULE. PO SCH (09:00)
[2018-08-27] MEDS: ASPIRIN CHEWABLE 81 MG TABLET. PO SCH (09:00)
[2018-08-27] MEDS: LACTOBACILLUS RHAMNOSUS GG 1 CAPSULE. PO SCH ×2 (09:00→21:21)
[2018-08-27] MEDS ORDERED: fentaNYL PF VIAL 100 MCG/2 ML VIAL ONE (11:15)
[2018-08-27] MEDS ORDERED: PROPOFOL 20 ML IV ONE (11:15)
[2018-08-27] MEDS ORDERED: LIDOCAINE 2% PF 5 ML VIAL. ONE (11:15)
[2018-08-27] MEDS ORDERED: ONDANSETRON PF 4 MG/2 ML VIAL. ONE (11:15)
--- NOTE | 2018-08-27 11:27 | PDOC ---
SURGICAL PROGRESS NOTE Subjective Pre-Op Note 52 yo F with sacral decub ulcer TO OR for debridement R/R/B/A d/w pt and pt's family. Risks, including, but not limited to: bleeding, infection, damage to surrounding structure, risk of anesthesia. They appear to understand, their questions are answered and they elect to proceed. Pt's family reports moving towards comfort care, but pt very interested in debridement. Vital Signs Vital Signs Date Time Temp Pulse Resp B/P (MAP) Pulse Ox O2 Delivery O2 Flow Rate FiO2 08/27/18 10:45 84 84 18 111/54 97 Room Air 84.0 08/26/18 20:00 2.0 I&O Intake and Output 08/27/18 06:59 Intake Total 480 ml Balance 480 ml Intake Oral 480 ml Labs Laboratory Tests Test 08/25/18 12:12 08/25/18 17:09 08/25/18 21:19 08/26/18 03:20 Glucose (Fingerstick) 169 mg/dL (70-99) 139 mg/dL (70-99) 136 mg/dL (70-99) White Blood Count 23.1 x10^3/uL (4.0-11.0) Red Blood Count 2.77 x10^6/uL (3.50-5.40) Hemoglobin 8.5 g/dL (12.0-15.5) Hematocrit 27.8 % (36.0-47.0) Mean Corpuscular Volume 100 fL (79-100) Mean Corpuscular Hemoglobin 31 pg (25-35) Mean Corpuscular Hemoglobin Concent 31 g/dL (31-37) Red Cell Distribution Width 17.5 % (11.5-14.5) Platelet Count 244 x10^3/uL (140-400) Neutrophils (%) (Auto) 83 % (31-73) Lymphocytes (%) (Auto) 7 % (24-48) Monocytes (%) (Auto) 9 % (0-9) Eosinophils (%) (Auto) 1 % (0-3) Basophils (%) (Auto) 0 % (0-3) Neutrophils # (Auto) 19.2 x10^3uL (1.8-7.7) Lymphocytes # (Auto) 1.6 x10^3/uL (1.0-4.8) Monocytes # (Auto) 2.1 x10^3/uL (0.0-1.1) Eosinophils # (Auto) 0.1 x10^3/uL (0.0-0.7) Basophils # (Auto) 0.1 x10^3/uL (0.0-0.2) Sodium Level 136 mmol/L (136-145) Potassium Level 3.9 mmol/L (3.5-5.1) Chloride Level 99 mmol/L (98-107) Carbon Dioxide Level 27 mmol/L (21-32) Anion Gap 10 (6-14) Blood Urea Nitrogen 47 mg/dL (7-20) Creatinine 3.9 mg/dL (0.6-1.0) Estimated GFR (Cockcroft-Gault) 12.1 Glucose Level 93 mg/dL (70-99) Calcium Level 8.8 mg/dL (8.5-10.1) Phosphorus Level 3.2 mg/dL (2.6-4.7) Albumin 1.8 g/dL (3.4-5.0) Test 08/26/18 08:13 08/26/18 08:59 08/26/18 16:53 08/26/18 20:10 Glucose (Fingerstick) 34 mg/dL (70-99) 126 mg/dL (70-99) 86 mg/dL (70-99) 201 mg/dL (70-99) Test 08/27/18 03:55 08/27/18 07:44 08/27/18 11:05 Sodium Level 134 mmol/L (136-145) Potassium Level 3.9 mmol/L (3.5-5.1) Chloride Level 98 mmol/L (98-107) Carbon Dioxide Level 26 mmol/L (21-32) Anion Gap 10 (6-14) Blood Urea Nitrogen 27 mg/dL (7-20) Creatinine 2.8 mg/dL (0.6-1.0) Estimated GFR (Cockcroft-Gault) 17.7 Glucose Level 155 mg/dL (70-99) Calcium Level 8.6 mg/dL (8.5-10.1) Phosphorus Level 2.3 mg/dL (2.6-4.7) Albumin 1.7 g/dL (3.4-5.0) Glucose (Fingerstick) 145 mg/dL (70-99) 155 mg/dL (70-99) Laboratory Tests Test 08/26/18 16:53 08/26/18 20:10 08/27/18 03:55 08/27/18 07:44 Glucose (Fingerstick) 86 mg/dL (70-99) 201 mg/dL (70-99) 145 mg/dL (70-99) Sodium Level 134 mmol/L (136-145) Potassium Level 3.9 mmol/L (3.5-5.1) Chloride Level 98 mmol/L (98-107) Carbon Dioxide Level 26 mmol/L (21-32) Anion Gap 10 (6-14) Blood Urea Nitrogen 27 mg/dL (7-20) Creatinine 2.8 mg/dL (0.6-1.0) Estimated GFR (Cockcroft-Gault) 17.7 Glucose Level 155 mg/dL (70-99) Calcium Level 8.6 mg/dL (8.5-10.1) Phosphorus Level 2.3 mg/dL (2.6-4.7) Albumin 1.7 g/dL (3.4-5.0) Test 08/27/18 11:05 Glucose (Fingerstick) 155 mg/dL (70-99) PARVIN QUEVEDO MD August 27, 2018 11:27
[2018-08-27] MEDS ORDERED: ePHEDrine PF IN SALINE 50 MG/10 ML SYRINGE. IV ONE (11:28)
--- NOTE | 2018-08-27 11:41 | PDOC ---
[employer] PROGRESS NOTE Chief Complaint Chief Complaint sepsis rectal bleeding opioid induced constipation, recent impaction, relistor? GI consult Dm1 CAD, ESRD chronic elevated troponin s/p BKA, poorly mobile acute on chronic pain, opioid dependence Guarded prognosis History of Present Illness History of Present Illness Pt seen and examined. Discussed with her DPOA Chichi and palate care team The plan is to go ahead and get debridement today and continue dialysis for another day or so then she is going to stop dialysis and I think on hospice Vitals Vitals Vital Signs Date Time Temp Pulse Resp B/P (MAP) Pulse Ox O2 Delivery O2 Flow Rate FiO2 08/27/18 10:45 84 84 18 111/54 97 Room Air 84.0 08/26/18 20:00 2.0 Physical Exam Physical Exam GENERAL: Minimal responce HEENT: Normal conjunctivae. Oral cavity: Pharynx dry. NECK: Supple. LUNGS: Clear to auscultation. HEART: S1 and S2. Murmur present. Buttock: Large wound EXTREMITIES: No gross edema or cyanosis. Previous left BKA. SKIN: Warm without rash. She has multiple wounds. General: Cooperative, No acute distress Heart: Regular rate, Normal S1, Normal S2 Lungs: Clear, Other Abdomen: Soft, No tenderness Extremities: Other (amputation) Skin: Other (multiple wounds) Labs LABS Laboratory Tests Test 08/26/18 16:53 08/26/18 20:10 08/27/18 03:55 08/27/18 07:44 Glucose (Fingerstick) 86 mg/dL (70-99) 201 mg/dL (70-99) 145 mg/dL (70-99) Sodium Level 134 mmol/L (136-145) Potassium Level 3.9 mmol/L (3.5-5.1) Chloride Level 98 mmol/L (98-107) Carbon Dioxide Level 26 mmol/L (21-32) Anion Gap 10 (6-14) Blood Urea Nitrogen 27 mg/dL (7-20) Creatinine 2.8 mg/dL (0.6-1.0) Estimated GFR (Cockcroft-Gault) 17.7 Glucose Level 155 mg/dL (70-99) Calcium Level 8.6 mg/dL (8.5-10.1) Phosphorus Level 2.3 mg/dL (2.6-4.7) Albumin 1.7 g/dL (3.4-5.0) Test 08/27/18 11:05 Glucose (Fingerstick) 155 mg/dL (70-99) Review of Systems Review of Systems She complains of depression and weakness Assessment and Plan Assessmemt and Plan sepsis rectal bleeding opioid induced constipation, recent impaction, relistor? GI consult Dm1 CAD, ESRD chronic elevated troponin s/p BKA, poorly mobile acute on chronic pain, opioid dependence Guarded prognosis Plan She is going for wound care today with debridement Continue dialysis for another day or 2 but I believe she is now going to stop dialysis after this week Suspect she'll go home next week with hospice I discussed this with the palate care team and they agree Her DPOAE Chichi also agrees For now continue current meds Prognosis terminal Comment Review of Relevant I have reviewed the following items bert (where applicable) has been applied. Labs Laboratory Tests Test 08/25/18 12:12 08/25/18 17:09 08/25/18 21:19 08/26/18 03:20 Glucose (Fingerstick) 169 mg/dL (70-99) 139 mg/dL (70-99) 136 mg/dL (70-99) White Blood Count 23.1 x10^3/uL (4.0-11.0) Red Blood Count 2.77 x10^6/uL (3.50-5.40) Hemoglobin 8.5 g/dL (12.0-15.5) Hematocrit 27.8 % (36.0-47.0) Mean Corpuscular Volume 100 fL (79-100) Mean Corpuscular Hemoglobin 31 pg (25-35) Mean Corpuscular Hemoglobin Concent 31 g/dL (31-37) Red Cell Distribution Width 17.5 % (11.5-14.5) Platelet Count 244 x10^3/uL (140-400) Neutrophils (%) (Auto) 83 % (31-73) Lymphocytes (%) (Auto) 7 % (24-48) Monocytes (%) (Auto) 9 % (0-9) Eosinophils (%) (Auto) 1 % (0-3) Basophils (%) (Auto) 0 % (0-3) Neutrophils # (Auto) 19.2 x10^3uL (1.8-7.7) Lymphocytes # (Auto) 1.6 x10^3/uL (1.0-4.8) Monocytes # (Auto) 2.1 x10^3/uL (0.0-1.1) Eosinophils # (Auto) 0.1 x10^3/uL (0.0-0.7) Basophils # (Auto) 0.1 x10^3/uL (0.0-0.2) Sodium Level 136 mmol/L (136-145) Potassium Level 3.9 mmol/L (3.5-5.1) Chloride Level 99 mmol/L (98-107) Carbon Dioxide Level 27 mmol/L (21-32) Anion Gap 10 (6-14) Blood Urea Nitrogen 47 mg/dL (7-20) Creatinine 3.9 mg/dL (0.6-1.0) Estimated GFR (Cockcroft-Gault) 12.1 Glucose Level 93 mg/dL (70-99) Calcium Level 8.8 mg/dL (8.5-10.1) Phosphorus Level 3.2 mg/dL (2.6-4.7) Albumin 1.8 g/dL (3.4-5.0) Test 08/26/18 08:13 08/26/18 08:59 08/26/18 16:53 08/26/18 20:10 Glucose (Fingerstick) 34 mg/dL (70-99) 126 mg/dL (70-99) 86 mg/dL (70-99) 201 mg/dL (70-99) Test 08/27/18 03:55 08/27/18 07:44 08/27/18 11:05 Sodium Level 134 mmol/L (136-145) Potassium Level 3.9 mmol/L (3.5-5.1) Chloride Level 98 mmol/L (98-107) Carbon Dioxide Level 26 mmol/L (21-32) Anion Gap 10 (6-14) Blood Urea Nitrogen 27 mg/dL (7-20) Creatinine 2.8 mg/dL (0.6-1.0) Estimated GFR (Cockcroft-Gault) 17.7 Glucose Level 155 mg/dL (70-99) Calcium Level 8.6 mg/dL (8.5-10.1) Phosphorus Level 2.3 mg/dL (2.6-4.7) Albumin 1.7 g/dL (3.4-5.0) Glucose (Fingerstick) 145 mg/dL (70-99) 155 mg/dL (70-99) Laboratory Tests Test 08/26/18 16:53 08/26/18 20:10 08/27/18 03:55 08/27/18 07:44 Glucose (Fingerstick) 86 mg/dL (70-99) 201 mg/dL (70-99) 145 mg/dL (70-99) Sodium Level 134 mmol/L (136-145) Potassium Level 3.9 mmol/L (3.5-5.1) Chloride Level 98 mmol/L (98-107) Carbon Dioxide Level 26 mmol/L (21-32) Anion Gap 10 (6-14) Blood Urea Nitrogen 27 mg/dL (7-20) Creatinine 2.8 mg/dL (0.6-1.0) Estimated GFR (Cockcroft-Gault) 17.7 Glucose Level 155 mg/dL (70-99) Calcium Level 8.6 mg/dL (8.5-10.1) Phosphorus Level 2.3 mg/dL (2.6-4.7) Albumin 1.7 g/dL (3.4-5.0) Test 08/27/18 11:05 Glucose (Fingerstick) 155 mg/dL (70-99) Microbiology 08/21/18 Blood Culture - Final, Complete NO GROWTH AFTER 5 DAYS Medications Current Medications Sodium Chloride 1,000 ml @ 1,000 mls/hr 1X ONCE IV Last administered on 08/20/18at 04:28; Start 08/20/18 at 03:00; Stop 08/20/18 at 03:59; Status DC Cefepime HCl (Maxipime) 2 gm 1X ONCE IVP Last administered on 08/20/18at 04:28; Start 08/20/18 at 03:00; Stop 08/20/18 at 03:01; Status DC Ondansetron HCl (Zofran) 4 mg PRN Q8HRS PRN IV NAUSEA/VOMITING 1ST CHOICE Last administered on 08/20/18at 07:27; Start 08/20/18 at 05:00; Stop 08/21/18 at 04:59; Status DC Insulin Human Lispro (HumaLOG) 0-5 UNITS TIDWMEALS SQ Last administered on 08/25/18at 12:41; Start 08/20/18 at 08:00 Dextrose (Dextrose 50%-Water Syringe) 12.5 gm PRN Q15MIN PRN IV SEE COMMENTS Last administered on 08/26/18 08:26; Start 08/20/18 at 05:00 Acetaminophen (Tylenol) 650 mg PRN Q6HRS PRN PO MILD PAIN / TEMP; Start 08/20/18 at 09:30 Amiodarone HCl (Cordarone) 200 mg DAILY PO Last administered on 08/26/18 09:40; Start 08/20/18 at 10:00 Aspirin (Children'S Aspirin) 81 mg DAILY PO Last administered on 08/26/18 09:42; Start 08/20/18 at 10:00 Carbamazepine (TEGretol) 200 mg BID PO Last administered on 08/26/18 21:20; Start 08/20/18 at 10:00 Carvedilol (Coreg) 12.5 mg BIDWMEALS PO Last administered on 08/27/18 08:41; Start 08/20/18 at 10:00 Docusate Sodium (Colace) 100 mg PRN Q8HRS PRN PO CONSTIPATION; Start 08/20/18 at 09:30 Famotidine (Pepcid) 20 mg HS PO Last administered on 08/26/18 21:19; Start 08/20/18 at 21:00 Guaifenesin (Mucinex) 600 mg BID PO Last administered on 08/26/18 21:23; Start 08/20/18 at 10:00 Insulin Glargine (Lantus) 15 units QHS SQ Last administered on 08/25/18 22:00; Start 08/20/18 at 21:00 Insulin Human Lispro (HumaLOG) 5 units TIDWMEALS SQ Last administered on 08/25/18 18:06; Start 08/20/18 at 12:00 Insulin Human Lispro (HumaLOG VIAL) 5 unit TIDWMEALS SQ ; Start 08/20/18 at 12:00; Status UNV Albuterol/ Ipratropium (Duoneb) 3 ml Q4HRS NEB Last administered on 08/27/18 07:39; Start 08/20/18 at 12:00 Albuterol Sulfate (Ventolin Neb Soln) 2.5 mg PRN Q4HRS PRN NEB SHORTNESS OF BREATH; Start 08/20/18 at 09:45 Morphine Sulfate (Ms Contin) 30 mg BID PO Last administered on 08/26/18 21:20; Start 08/20/18 at 10:00 Nystatin (Nystop) 1 susanna BID TP Last administered on 08/26/18 21:23; Start 08/20/18 at 10:00 Oxycodone/ Acetaminophen (Percocet 10/325) 1 tab PRN Q4HRS PRN PO MODERATE - SEVERE PAIN Last administered on 08/24/18 12:46; Start 08/20/18 at 12:00 Prochlorperazine Maleate (Compazine) 10 mg PRN Q6HRS PRN PO NAUSEA/VOMITING,2ND CHOICE; Start 08/20/18 at 09:30 Sevelamer Carbonate (Renvela) 1,600 mg TIDWMEALS PO Last administered on 08/26/18 18:10; Start 08/20/18 at 12:00 Ticagrelor (Brilinta) 90 mg BID PO Last administered on 08/26/18 09:42; Start 08/20/18 at 10:00 Atorvastatin Calcium (Lipitor) 80 mg QHS PO Last administered on 08/26/18 21:19; Start 08/20/18 at 21:00 Calcitriol (Rocaltrol) 0.25 mcg DAILY PO Last administered on 08/26/18 09:41; Start 08/20/18 at 10:00 Diltiazem HCl (Cardizem 24hr Cd) 120 mg DAILY PO Last administered on 08/27/18 08:42; Start 08/20/18 at 10:00 Erythromycin (E-Mycin) 250 mg BID PO Last administered on 08/26/18 21:20; Start 08/20/18 at 10:00 Hydralazine HCl (Apresoline) 10 mg PRN TID PRN PO ELEVATED BP; Start 08/20/18 at 14:00 Lidocaine (Lidoderm) 1 patch DAILY TD Last administered on 08/24/18 12:51; Start 08/20/18 at 10:00 Non-Formulary Medication (Melatonin ) 9 mg QHS PO ; Start 08/20/18 at 21:00; Status UNV Niacin (Slo-Niacin) 250 mg BID PO Last administered on 08/26/18at 21:20; Start 08/20/18 at 10:00 Ondansetron HCl (Zofran Odt) 4 mg PRN Q6HRS PRN PO NAUSEA/VOMITING, 1ST CHOICE; Start 08/20/18 at 09:45 Polyethylene Glycol (miraLAX PACKET) 17 gm PRN Q8HRS PRN PO CONSTIPATION; Start 08/20/18 at 09:42; Stop 08/20/18 at 12:24; Status DC Sodium Chloride ([place] Saline Nasal) 1 susanna PRN BID PRN NS NASAL CONGESTION; Start 08/20/18 at 10:00 Hydromorphone HCl (Dilaudid) 1 mg PRN Q4HRS PRN IVP PAIN Last administered on 08/21/18at 05:42; Start 08/20/18 at 09:30 Miscellaneous (Lidoderm Patch Removal) 1 ea QHS MC Last administered on 08/23/18at 20:57; Start 08/20/18 at 21:00 Darbepoetin Mauricio (Aranesp) 60 mcg Fr SQ Last administered on 08/20/18at 20:25; Start 08/20/18 at 21:00 Polyethylene Glycol (miraLAX PACKET) 17 gm BID PO Last administered on 08/26/18at 21:20; Start 08/20/18 at 21:00 Lubiprostone (Amitiza) 24 mcg BIDWMEALS PO Last administered on 08/26/18at 18:11; Start 08/20/18 at 17:00 Sodium Chloride 1,000 ml @ 1,000 mls/hr Q1H PRN IV hypotension; Start 08/21/18 at 09:50; Stop 08/21/18 at 15:49; Status DC Info (PHARMACY MONITORING -- do not chart) 1 each PRN DAILY PRN MC SEE COMMENTS; Start 08/21/18 at 10:00; Status UNV Info (PHARMACY MONITORING -- do not chart) 1 each PRN DAILY PRN MC SEE COMMENTS; Start 08/21/18 at 10:00 Vancomycin HCl 500 mg/Sodium Chloride 100 ml @ 100 mls/hr 1X ONCE IV ; Start 08/21/18 at 12:00; Stop 08/21/18 at 12:59; Status UNV Vancomycin HCl 1.5 gm/Sodium Chloride 500 ml @ 250 mls/hr 1X ONCE IV Last administered on 08/21/18at 12:55; Start 08/21/18 at 10:15; Stop 08/21/18 at 12:14; Status DC Vancomycin HCl (Vanco Per Pharmacy) 1 each PRN DAILY PRN MC SEE COMMENTS Last administered on 08/26/18at 14:27; Start 08/22/18 at 11:15 Vancomycin HCl 500 mg/Sodium Chloride 100 ml @ 100 mls/hr TuThSa@1600 IV Last administered on 08/26/18at 15:54; Start 08/24/18 at 16:00 Vancomycin HCl (Vancomycin Random Level) 1 each 1X ONCE MC Last administered on 08/24/18at 05:00; Start 08/24/18 at 05:00; Stop 08/24/18 at 05:01; Status DC Glucose (Insta-Glucose) 15 gm STK-MED ONCE .ROUTE ; Start 08/23/18 at 07:42; Stop 08/23/18 at 07:43; Status DC Dextrose/Sodium Chloride 1,000 ml @ 75 mls/hr [id number] IV Last administered on 08/26/18at 16:00; Start 08/23/18 at 08:45 Glucose (Insta-Glucose) 15 gm PRN Q15MIN PRN PO LOW BLOOD SUGAR; Start 08/23/18 at 09:15 Lactobacillus Rhamnosus (Culturelle) 1 cap BID PO Last administered on 08/26/18at 21:19; Start 08/23/18 at 21:00 Sodium Chloride 1,000 ml @ 1,000 mls/hr Q1H PRN IV hypotension; Start 08/24/18 at 07:28; Stop 08/24/18 at 13:27; Status DC Albumin Human 200 ml @ 200 mls/hr 1X PRN PRN IV Hypotension; Start 08/24/18 at 07:30; Stop 08/24/18 at 13:29; Status DC Acetaminophen (Tylenol) 500 mg 1X PRN PRN PO MILD PAIN / TEMP; Start 08/24/18 at 07:30; Stop 08/25/18 at 07:29; Status DC Diphenhydramine HCl (Benadryl) 25 mg 1X PRN PRN IV ITCHING; Start 08/24/18 at 07:30; Stop 08/25/18 at 07:29; Status DC Diphenhydramine HCl (Benadryl) 25 mg 1X PRN PRN IV ITCHING; Start 08/24/18 at 07:30; Stop 08/25/18 at 07:29; Status DC Sodium Chloride 1,000 ml @ 400 mls/hr Q2H30M PRN IV PATENCY; Start 08/24/18 at 07:28; Stop 08/24/18 at 19:27; Status DC Info (PHARMACY MONITORING -- do not chart) 1 each PRN DAILY PRN MC SEE COMMENTS; Start 08/24/18 at 07:30; Status UNV Cefepime HCl (Maxipime) 1 gm Q24H IVP Last administered on 08/26/18at 14:30; Start 08/24/18 at 14:30 Sodium Hypochlorite (Dakin'S 1/4 Strength) 1 susanna QODAY TP Last administered on 08/25/18at 15:30; Start 08/25/18 at 15:30 Sodium Chloride 1,000 ml @ 1,000 mls/hr Q1H PRN IV hypotension; Start 08/26/18 at 10:44; Stop 08/26/18 at 16:43; Status DC Diphenhydramine HCl (Benadryl) 25 mg 1X PRN PRN IV ITCHING; Start 08/26/18 at 10:45; Stop 08/27/18 at 10:44; Status DC Diphenhydramine HCl (Benadryl) 25 mg 1X PRN PRN IV ITCHING; Start 08/26/18 at 10:45; Stop 08/27/18 at 10:44; Status DC Sodium Chloride 1,000 ml @ 400 mls/hr Q2H30M PRN IV PATENCY; Start 08/26/18 at 10:44; Stop 08/26/18 at 22:43; Status DC Info (PHARMACY MONITORING -- do not chart) 1 each PRN DAILY PRN MC SEE COMMENTS; Start 08/26/18 at 10:45; Status UNV Propofol 20 ml @ As Directed STK-MED ONCE IV ; Start 08/27/18 at 11:15; Stop 08/27/18 at 11:16; Status DC Lidocaine HCl (Lidocaine Pf 2% Vial) 5 ml STK-MED ONCE .ROUTE ; Start 08/27/18 at 11:15; Stop 08/27/18 at 11:16; Status DC Fentanyl Citrate (Fentanyl 2ml Vial) 100 mcg STK-MED ONCE .ROUTE ; Start 08/27/18 at 11:15; Stop 08/27/18 at 11:16; Status DC Ondansetron HCl (Zofran) 4 mg STK-MED ONCE .ROUTE ; Start 08/27/18 at 11:15; Stop 08/27/18 at 11:16; Status DC Ephedrine Sulfate (ePHEDrine PF IN SALINE SYRINGE) 50 mg STK-MED ONCE IV ; Start 08/27/18 at 11:28; Stop 08/27/18 at 11:29; Status DC Active Scripts Active Nystop (Nystatin) 60 Gm Powder 1 Susanna TP BID MDD 1 Morphine Sulfate Er (Morphine Sulfate) 30 Mg Tablet.er 1 Tab PO BID MDD 1 Tramadol Hcl 50 Mg Tablet 50 Mg PO Q4HRS PRN MDD 1 Brilinta (Ticagrelor) 90 Mg Tablet 90 Mg PO BID 30 Days Reported Zofran (Ondansetron Hcl) 4 Mg Tablet 1 Tab PO Q6HRS Lidocaine 1 Each Adh..patch 1 Each TP DAILY Duoneb 0.5-3(2.5) Mg/3 Ml (Albuterol/Ipratropium) 3 Ml Ampul.neb 3 Ml NEB Q4HRS Uriel-Tab (Erythromycin Base) 250 Mg Tablet.dr 250 Mg PO BID Diltiazem 24HR Cd (Diltiazem Hcl) 120 Mg Cap.er.24h 1 Cap PO DAILY Carvedilol (Carvedilol) 12.5 Mg Tablet 12.5 Mg PO BIDWMEALS Tylenol (Acetaminophen) 325 Mg Tablet 2 Tab PO PRN Q6HRS Oxycodone-Acetaminophen 10-325 (Oxycodone Hcl/Acetaminophen) 1 Each Tablet 1 Tab PO Q4HRS Renvela (Sevelamer Carbonate) 800 Mg Tablet 2 Tab PO TID Melatonin 3 Mg Tablet 9 Mg PO QHS Lantus Solostar (Insulin Glargine,Hum.rec.anlog) 100 Unit/1 Ml Insuln.pen 15 Unit SQ QHS Duoneb 0.5-3(2.5) Mg/3 Ml (Albuterol/Ipratropium) 3 Ml Ampul.neb 3 Ml NEB QID PRN Humalog (Insulin Lispro) 100 Unit/1 Ml Vial 0 SQ TID Humalog (Insulin Lispro) 100 Unit/1 Ml Vial 5 Unit SQ TIDWMEALS Guaifenesin 600 Mg Tablet.er 600 Mg PO BID [place] Saline (Sodium Chloride) 50 Ml [place] 1 [place] NS BID PRN Acetaminophen 500 Mg Tablet 650 Mg PO Q6HRS PRN Aspirin 81 Mg Tab.chew 1 Tab PO DAILY Calcitriol 0.25 Mcg Capsule 1 Cap PO DAILY Pepcid (Famotidine) 20 Mg Tablet 20 Mg PO HS Niacin 250 Mg Tablet 250 Mg PO BID Miralax (Polyethylene Glycol 3350) 17 Gm Powd.pack 1 Packet PO Q 8HRS PRN Hydralazine Hcl 10 Mg Tablet 1 Tab PO PRN TID PRN Ferrous Sulfate 325 Mg Tablet 1 Tab PO DAILY Diphenhydramine Hcl 50 Mg Capsule 1 Cap PO PRN Q8HRS PRN Prochlorperazine Maleate 10 Mg Tablet 1 Tab PO PRN Q6HRS PRN Tegretol (Carbamazepine) 200 Mg Tablet 1 Tab PO BID Amiodarone Hcl 200 Mg Tablet 1 Tab PO DAILY Lipitor (Atorvastatin Calcium) 80 Mg Tablet 80 Mg PO HS Docusate Sodium 100 Mg Capsule 1 Cap PO Q8HRS PRN Vitals/I & O Vital Sign - Last 24 Hours 08/26/18 08/26/18 08/26/18 08/26/18 15:54 18:12 19:45 20:00 Temp 97.5 97.5 Pulse 125 91 Resp 16 B/P (MAP) 98/57 120/56 (77) Pulse Ox 100 O2 Delivery Room Air Room Air O2 Flow Rate 2.0 08/26/18 08/26/18 08/27/18 08/27/18 21:20 23:03 01:20 03:45 Temp 98.3 98.8 98.3 98.8 Pulse 83 94 Resp 16 12 B/P (MAP) 125/57 (79) 114/53 (73) Pulse Ox 95 98 O2 Delivery Room Air Room Air 08/27/18 08/27/18 08/27/18 08/27/18 07:00 07:35 08:41 08:42 Temp 97.9 97.9 Pulse 73 94 94 Resp 17 B/P (MAP) 122/56 (78) 114/53 114/53 Pulse Ox 82 97 O2 Delivery Room Air 08/27/18 10:45 Temp 84 84.0 Pulse 84 Resp 18 B/P (MAP) 111/54 Pulse Ox 97 O2 Delivery Room Air Intake and Output 08/26/18 08/26/18 08/27/18 15:00 23:00 07:00 Intake Total 230 ml 100 ml 150 ml Balance 230 ml 100 ml 150 ml PAPITO REZA III DO August 27, 2018 11:41
[2018-08-27] MEDS: VANCOMYCIN PER PHARMACY MC PRN (11:42)
[2018-08-27] MEDS ORDERED: DEXAMETHASONE SOD PHOS 4 MG/ML VIAL ONE (11:47)
--- NOTE | 2018-08-27 12:40 | PDOC4 ---
OPERATIVE NOTE Date: Date: August 27, 2018 Pre-Op Diagnosis: right ischial decub ulcer Post-Op Diagnosis: same Procedure Performed: Excisional debridement of right ischial area, skin subcutaneous tissues Surgeon: Mauricio Quevedo Anesthesia Type: GETA Blood Loss: minimal Specimans Obtained: ulcer Findings: necrotic ulcer Complications: none Operative Note: After obtaining informed consent, patient was taken to OR, induced under GETA and prepped in the usual fashion over the right ischial area. Large necrotic ulcer noted. Using curved pardo and cautery, all obvious necrotic tissue removed. This was an area about 5 x 10 cm. Dissection continued down to good viable tissue. Specimen sent to pathology. Hemostasis obtained using cautery. Dissection carried down to fascia and muscle, about 1 cm depth. Iodoform gauze and clean dressing placed. Patient tolerated procedure well and sent to PACU in stable condition. All counts correct. No immediate complications. Wound class is 4. PARVIN QUEVEDO MD August 27, 2018 12:40
[2018-08-27] MEDS ORDERED: 0.9 % SODIUM CHLORIDE 10 ML DISP.SYRIN. IV PRN (12:45)
--- NOTE | 2018-08-27 13:34 | PDOC2 ---
PALLIATIVE CARE Palliative Care Note Palliative Care Patient is lethargic/confused but has intermittent periods of being alert; able to verbalize her wishes; is inconsistent with wishes. Chichi shared that she visited Thursday and patient did not know her. Per staff patient did not know she had wounds on her buttocks. Surgical consent obtained from Chichi. Chichi /sister spoke with patient prior to family meeting. Patient told Chichi and Dr. Cheatham that she wanted Chichi to make her health care decisions Patient also told Chichi that she had conversed with her mother and grandmother () last night and her mother has her room waiting for her. Patient told Chichi she was ready to "go home" and that she wanted to wear her green shirt and black pants. Chichi also talked with her father but will inform him of patient's wishes and conversation. Met with Bruce Cadet and Negra. Patient;s father and other siblings who live out of state (?[place]) Patient had S/O but does not have contact now. Reviewed Medical Condition; ESRD--dialysis; sepsis treating with multiple antibiotics; encephalopathy, DM; pain; multiple wounds; labs. malnutrition, poor surgical candidate. Bruce Cadet, and Negra understand that patient is seriously ill and has only short period of time. Chichi shared the conversation she had with patient prior to Delfino's arrival. Chichi also has talked with [facility]. Chichi shared that patient was only going to dialysis so she could get out of [facility] but was only staying on dialysis for 1.5 to 2 hours of time before she asked to be taken off dialysis. Chichi understands from this conversation that patient has very limited benefit of dialysis. 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 enjoyed singing; very resilient person; Worked for [employer] caring for [employer]. 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 Hasn't walked for over a year. Primarily bedridden at the facility. Discussed goals of care; Bruce Cadet and Negra would like to focus on comfort--voiced concern about pain management. Patient wants to go back to [facility]. Patient considers this home and has several friends. [facility] will follow. Allow patient to eat what she wants. Family would like another dialysis treatment tomorrow and then stop dialysis; plan to return to [facility] Thursday if pain is managed. No dialysis. Discussed Code Status; Shared patient's wish to be DNR/DNI and then changed her mind. Chichi, Bruce, and Negra request DNR/DNI and allow patient to peacefully and comfortably. Chichi states this is what her sister wants now. Chichi shared that patient is donating her body to [facility] for research after she dies. They have been in contact and have documents accordingly. Encouraged Chichi to make contact with them again and share this information with [facility]. Will have Chichi sign [facility] the [facility] DNR/DNI. Return to [facility] Thursday if pain and symptoms are managed. Dialysis on Thursday. Shane RANDOLPH will call physician for orders. LISSETTE ROLDAN August 27, 2018 13:34
--- NOTE | 2018-08-27 14:13 | NUR ---
SW following pt. Discussed with Palliative Care and plan is to return to [facility] on Thursday with [facility] if pain and symptoms are managed. Planning on having one more dialysis on Thursday.
--- NOTE | 2018-08-27 14:33 | PDOC ---
G I PROGRESS NOTE Reason for Follow-up anemia/constipation Subjective Tired Physical Exam Lungs decreased BS CV S1 S2 ABD +BS, soft Review of Relevant I have reviewed the following items bert (where applicable) has been applied. Labs Laboratory Tests Test 08/25/18 17:09 08/25/18 21:19 08/26/18 03:20 08/26/18 08:13 Glucose (Fingerstick) 139 mg/dL (70-99) 136 mg/dL (70-99) 34 mg/dL (70-99) White Blood Count 23.1 x10^3/uL (4.0-11.0) Red Blood Count 2.77 x10^6/uL (3.50-5.40) Hemoglobin 8.5 g/dL (12.0-15.5) Hematocrit 27.8 % (36.0-47.0) Mean Corpuscular Volume 100 fL (79-100) Mean Corpuscular Hemoglobin 31 pg (25-35) Mean Corpuscular Hemoglobin Concent 31 g/dL (31-37) Red Cell Distribution Width 17.5 % (11.5-14.5) Platelet Count 244 x10^3/uL (140-400) Neutrophils (%) (Auto) 83 % (31-73) Lymphocytes (%) (Auto) 7 % (24-48) Monocytes (%) (Auto) 9 % (0-9) Eosinophils (%) (Auto) 1 % (0-3) Basophils (%) (Auto) 0 % (0-3) Neutrophils # (Auto) 19.2 x10^3uL (1.8-7.7) Lymphocytes # (Auto) 1.6 x10^3/uL (1.0-4.8) Monocytes # (Auto) 2.1 x10^3/uL (0.0-1.1) Eosinophils # (Auto) 0.1 x10^3/uL (0.0-0.7) Basophils # (Auto) 0.1 x10^3/uL (0.0-0.2) Sodium Level 136 mmol/L (136-145) Potassium Level 3.9 mmol/L (3.5-5.1) Chloride Level 99 mmol/L (98-107) Carbon Dioxide Level 27 mmol/L (21-32) Anion Gap 10 (6-14) Blood Urea Nitrogen 47 mg/dL (7-20) Creatinine 3.9 mg/dL (0.6-1.0) Estimated GFR (Cockcroft-Gault) 12.1 Glucose Level 93 mg/dL (70-99) Calcium Level 8.8 mg/dL (8.5-10.1) Phosphorus Level 3.2 mg/dL (2.6-4.7) Albumin 1.8 g/dL (3.4-5.0) Test 08/26/18 08:59 08/26/18 16:53 08/26/18 20:10 08/27/18 03:55 Glucose (Fingerstick) 126 mg/dL (70-99) 86 mg/dL (70-99) 201 mg/dL (70-99) Sodium Level 134 mmol/L (136-145) Potassium Level 3.9 mmol/L (3.5-5.1) Chloride Level 98 mmol/L (98-107) Carbon Dioxide Level 26 mmol/L (21-32) Anion Gap 10 (6-14) Blood Urea Nitrogen 27 mg/dL (7-20) Creatinine 2.8 mg/dL (0.6-1.0) Estimated GFR (Cockcroft-Gault) 17.7 Glucose Level 155 mg/dL (70-99) Calcium Level 8.6 mg/dL (8.5-10.1) Phosphorus Level 2.3 mg/dL (2.6-4.7) Albumin 1.7 g/dL (3.4-5.0) Test 08/27/18 07:44 08/27/18 11:05 08/27/18 12:18 Glucose (Fingerstick) 145 mg/dL (70-99) 155 mg/dL (70-99) 158 mg/dL (70-99) Laboratory Tests Test 08/26/18 16:53 08/26/18 20:10 08/27/18 03:55 08/27/18 07:44 Glucose (Fingerstick) 86 mg/dL (70-99) 201 mg/dL (70-99) 145 mg/dL (70-99) Sodium Level 134 mmol/L (136-145) Potassium Level 3.9 mmol/L (3.5-5.1) Chloride Level 98 mmol/L (98-107) Carbon Dioxide Level 26 mmol/L (21-32) Anion Gap 10 (6-14) Blood Urea Nitrogen 27 mg/dL (7-20) Creatinine 2.8 mg/dL (0.6-1.0) Estimated GFR (Cockcroft-Gault) 17.7 Glucose Level 155 mg/dL (70-99) Calcium Level 8.6 mg/dL (8.5-10.1) Phosphorus Level 2.3 mg/dL (2.6-4.7) Albumin 1.7 g/dL (3.4-5.0) Test 08/27/18 11:05 08/27/18 12:18 Glucose (Fingerstick) 155 mg/dL (70-99) 158 mg/dL (70-99) Microbiology 08/21/18 Blood Culture - Final, Complete NO GROWTH AFTER 5 DAYS Medications Current Medications Sodium Chloride 1,000 ml @ 1,000 mls/hr 1X ONCE IV Last administered on 08/20/18 04:28; Start 08/20/18 at 03:00; Stop 08/20/18 at 03:59; Status DC Cefepime HCl (Maxipime) 2 gm 1X ONCE IVP Last administered on 08/20/18 04:28; Start 08/20/18 at 03:00; Stop 08/20/18 at 03:01; Status DC Ondansetron HCl (Zofran) 4 mg PRN Q8HRS PRN IV NAUSEA/VOMITING 1ST CHOICE Last administered on 08/20/18 07:27; Start 08/20/18 at 05:00; Stop 08/21/18 at 04:59; Status DC Insulin Human Lispro (HumaLOG) 0-5 UNITS TIDWMEALS SQ Last administered on 08/25/18 12:41; Start 08/20/18 at 08:00 Dextrose (Dextrose 50%-Water Syringe) 12.5 gm PRN Q15MIN PRN IV SEE COMMENTS Last administered on 08/26/18 08:26; Start 08/20/18 at 05:00 Acetaminophen (Tylenol) 650 mg PRN Q6HRS PRN PO MILD PAIN / TEMP; Start 08/20/18 at 09:30 Amiodarone HCl (Cordarone) 200 mg DAILY PO Last administered on 08/26/18at 09:40; Start 08/20/18 at 10:00 Aspirin (Children'S Aspirin) 81 mg DAILY PO Last administered on 08/26/18 09:42; Start 08/20/18 at 10:00 Carbamazepine (TEGretol) 200 mg BID PO Last administered on 08/26/18 21:20; Start 08/20/18 at 10:00 Carvedilol (Coreg) 12.5 mg BIDWMEALS PO Last administered on 08/27/18 08:41; Start 08/20/18 at 10:00 Docusate Sodium (Colace) 100 mg PRN Q8HRS PRN PO CONSTIPATION; Start 08/20/18 at 09:30 Famotidine (Pepcid) 20 mg HS PO Last administered on 08/26/18 21:19; Start 08/20/18 at 21:00 Guaifenesin (Mucinex) 600 mg BID PO Last administered on 08/26/18 21:23; Start 08/20/18 at 10:00 Insulin Glargine (Lantus) 15 units QHS SQ Last administered on 08/25/18 22:00; Start 08/20/18 at 21:00 Insulin Human Lispro (HumaLOG) 5 units TIDWMEALS SQ Last administered on 08/25/18 18:06; Start 08/20/18 at 12:00 Insulin Human Lispro (HumaLOG VIAL) 5 unit TIDWMEALS SQ ; Start 08/20/18 at 12:00; Status UNV Albuterol/ Ipratropium (Duoneb) 3 ml Q4HRS NEB Last administered on 08/27/18 07:39; Start 08/20/18 at 12:00 Albuterol Sulfate (Ventolin Neb Soln) 2.5 mg PRN Q4HRS PRN NEB SHORTNESS OF BREATH; Start 08/20/18 at 09:45 Morphine Sulfate (Ms Contin) 30 mg BID PO Last administered on 08/26/18 21:20; Start 08/20/18 at 10:00 Nystatin (Nystop) 1 susanna BID TP Last administered on 08/26/18 21:23; Start 08/20/18 at 10:00 Oxycodone/ Acetaminophen (Percocet 10/325) 1 tab PRN Q4HRS PRN PO MODERATE - SEVERE PAIN Last administered on 08/24/18 12:46; Start 08/20/18 at 12:00 Prochlorperazine Maleate (Compazine) 10 mg PRN Q6HRS PRN PO NAUSEA/VOMITING,2ND CHOICE; Start 08/20/18 at 09:30 Sevelamer Carbonate (Renvela) 1,600 mg TIDWMEALS PO Last administered on 08/26/18 18:10; Start 08/20/18 at 12:00 Ticagrelor (Brilinta) 90 mg BID PO Last administered on 08/26/18 09:42; Start 08/20/18 at 10:00 Atorvastatin Calcium (Lipitor) 80 mg QHS PO Last administered on 08/26/18 21:19; Start 08/20/18 at 21:00 Calcitriol (Rocaltrol) 0.25 mcg DAILY PO Last administered on 08/26/18 09:41; Start 08/20/18 at 10:00 Diltiazem HCl (Cardizem 24hr Cd) 120 mg DAILY PO Last administered on 08/27/18 08:42; Start 08/20/18 at 10:00 Erythromycin (E-Mycin) 250 mg BID PO Last administered on 08/26/18 21:20; Start 08/20/18 at 10:00 Hydralazine HCl (Apresoline) 10 mg PRN TID PRN PO ELEVATED BP; Start 08/20/18 at 14:00 Lidocaine (Lidoderm) 1 patch DAILY TD Last administered on 08/24/18 12:51; Start 08/20/18 at 10:00 Non-Formulary Medication (Melatonin ) 9 mg QHS PO ; Start 08/20/18 at 21:00; Status UNV Niacin (Slo-Niacin) 250 mg BID PO Last administered on 08/26/18 21:20; Start 08/20/18 at 10:00 Ondansetron HCl (Zofran Odt) 4 mg PRN Q6HRS PRN PO NAUSEA/VOMITING, 1ST CHOICE; Start 08/20/18 at 09:45 Polyethylene Glycol (miraLAX PACKET) 17 gm PRN Q8HRS PRN PO CONSTIPATION; Start 08/20/18 at 09:42; Stop 08/20/18 at 12:24; Status DC Sodium Chloride ([place] Saline Nasal) 1 ssuanna PRN BID PRN NS NASAL CONGESTION; Start 08/20/18 at 10:00 Hydromorphone HCl (Dilaudid) 1 mg PRN Q4HRS PRN IVP SEVERE PAIN Last administered on 08/21/18at 05:42; Start 08/20/18 at 09:30 Miscellaneous (Lidoderm Patch Removal) 1 ea QHS MC Last administered on 08/23/18 20:57; Start 08/20/18 at 21:00 Darbepoetin Mauricio (Aranesp) 60 mcg Fr SQ Last administered on 08/20/18 20:25; Start 08/20/18 at 21:00 Polyethylene Glycol (miraLAX PACKET) 17 gm BID PO Last administered on 08/26/18 21:20; Start 08/20/18 at 21:00 Lubiprostone (Amitiza) 24 mcg BIDWMEALS PO Last administered on 08/26/18 18:11; Start 08/20/18 at 17:00 Sodium Chloride 1,000 ml @ 1,000 mls/hr Q1H PRN IV hypotension; Start 08/21/18 at 09:50; Stop 08/21/18 at 15:49; Status DC Info (PHARMACY MONITORING -- do not chart) 1 each PRN DAILY PRN MC SEE COMMENTS; Start 08/21/18 at 10:00; Status UNV Info (PHARMACY MONITORING -- do not chart) 1 each PRN DAILY PRN MC SEE COMMENTS; Start 08/21/18 at 10:00 Vancomycin HCl 500 mg/Sodium Chloride 100 ml @ 100 mls/hr 1X ONCE IV ; Start 08/21/18 at 12:00; Stop 08/21/18 at 12:59; Status UNV Vancomycin HCl 1.5 gm/Sodium Chloride 500 ml @ 250 mls/hr 1X ONCE IV Last administered on 08/21/18at 12:55; Start 08/21/18 at 10:15; Stop 08/21/18 at 12:14; Status DC Vancomycin HCl (Vanco Per Pharmacy) 1 each PRN DAILY PRN MC SEE COMMENTS Last administered on 08/27/18at 11:42; Start 08/22/18 at 11:15 Vancomycin HCl 500 mg/Sodium Chloride 100 ml @ 100 mls/hr TuThSa@1600 IV Last administered on 5/2/19at 15:54; Start 08/24/18 at 16:00 Vancomycin HCl (Vancomycin Random Level) 1 each 1X ONCE MC Last administered on 08/24/18at 05:00; Start 08/24/18 at 05:00; Stop 08/24/18 at 05:01; Status DC Glucose (Insta-Glucose) 15 gm STK-MED ONCE .ROUTE ; Start 08/23/18 at 07:42; Stop 08/23/18 at 07:43; Status DC Dextrose/Sodium Chloride 1,000 ml @ 75 mls/hr [id number] IV Last administered on 08/26/18at 16:00; Start 08/23/18 at 08:45 Glucose (Insta-Glucose) 15 gm PRN Q15MIN PRN PO LOW BLOOD SUGAR; Start 08/23/18 at 09:15 Lactobacillus Rhamnosus (Culturelle) 1 cap BID PO Last administered on 08/26/18at 21:19; Start 08/23/18 at 21:00 Sodium Chloride 1,000 ml @ 1,000 mls/hr Q1H PRN IV hypotension; Start 08/24/18 at 07:28; Stop 08/24/18 at 13:27; Status DC Albumin Human 200 ml @ 200 mls/hr 1X PRN PRN IV Hypotension; Start 08/24/18 at 07:30; Stop 08/24/18 at 13:29; Status DC Acetaminophen (Tylenol) 500 mg 1X PRN PRN PO MILD PAIN / TEMP; Start 08/24/18 at 07:30; Stop 08/25/18 at 07:29; Status DC Diphenhydramine HCl (Benadryl) 25 mg 1X PRN PRN IV ITCHING; Start 08/24/18 at 07:30; Stop 08/25/18 at 07:29; Status DC Diphenhydramine HCl (Benadryl) 25 mg 1X PRN PRN IV ITCHING; Start 08/24/18 at 07:30; Stop 08/25/18 at 07:29; Status DC Sodium Chloride 1,000 ml @ 400 mls/hr Q2H30M PRN IV PATENCY; Start 08/24/18 at 07:28; Stop 08/24/18 at 19:27; Status DC Info (PHARMACY MONITORING -- do not chart) 1 each PRN DAILY PRN MC SEE COMMENTS; Start 08/24/18 at 07:30; Status UNV Cefepime HCl (Maxipime) 1 gm Q24H IVP Last administered on 08/26/18at 14:30; Start 08/24/18 at 14:30 Sodium Hypochlorite ([place] 1/4 Strength) 1 susanna QODAY TP Last administered on 08/25/18at 15:30; Start 08/25/18 at 15:30 Sodium Chloride 1,000 ml @ 1,000 mls/hr Q1H PRN IV hypotension; Start 08/26/18 at 10:44; Stop 08/26/18 at 16:43; Status DC Diphenhydramine HCl (Benadryl) 25 mg 1X PRN PRN IV ITCHING; Start 08/26/18 at 10:45; Stop 08/27/18 at 10:44; Status DC Diphenhydramine HCl (Benadryl) 25 mg 1X PRN PRN IV ITCHING; Start 08/26/18 at 10:45; Stop 08/27/18 at 10:44; Status DC Sodium Chloride 1,000 ml @ 400 mls/hr Q2H30M PRN IV PATENCY; Start 08/26/18 at 10:44; Stop 08/26/18 at 22:43; Status DC Info (PHARMACY MONITORING -- do not chart) 1 each PRN DAILY PRN MC SEE COMMENTS; Start 08/26/18 at 10:45; Status UNV Propofol 20 ml @ As Directed STK-MED ONCE IV ; Start 08/27/18 at 11:15; Stop 08/27/18 at 11:16; Status DC Lidocaine HCl (Lidocaine Pf 2% Vial) 5 ml STK-MED ONCE .ROUTE ; Start 08/27/18 at 11:15; Stop 08/27/18 at 11:16; Status DC Fentanyl Citrate (Fentanyl 2ml Vial) 100 mcg STK-MED ONCE .ROUTE ; Start 08/27/18 at 11:15; Stop 08/27/18 at 11:16; Status DC Ondansetron HCl (Zofran) 4 mg STK-MED ONCE .ROUTE ; Start 08/27/18 at 11:15; Stop 08/27/18 at 11:16; Status DC Ephedrine Sulfate (ePHEDrine PF IN SALINE SYRINGE) 50 mg STK-MED ONCE IV ; Start 08/27/18 at 11:28; Stop 08/27/18 at 11:29; Status DC Dexamethasone Sodium Phosphate (Decadron) 4 mg STK-MED ONCE .ROUTE ; Start 08/27/18 at 11:47; Stop 08/27/18 at 11:48; Status DC Sodium Chloride (Normal Saline Flush) 3 ml QSHIFT PRN IV AFTER MEDS AND BLOOD DRAWS; Start 08/27/18 at 12:45 Morphine Sulfate (Morphine Sulfate) 2 mg PRN Q2HR PRN IV MODERATE PAIN; Start 08/27/18 at 14:00 Active Scripts Active Nystop (Nystatin) 60 Gm Powder 1 Susanna TP BID MDD 1 Morphine Sulfate Er (Morphine Sulfate) 30 Mg Tablet.er 1 Tab PO BID MDD 1 Tramadol Hcl 50 Mg Tablet 50 Mg PO Q4HRS PRN MDD 1 Brilinta (Ticagrelor) 90 Mg Tablet 90 Mg PO BID 30 Days Reported Zofran (Ondansetron Hcl) 4 Mg Tablet 1 Tab PO Q6HRS Lidocaine 1 Each Adh..patch 1 Each TP DAILY Duoneb 0.5-3(2.5) Mg/3 Ml (Albuterol/Ipratropium) 3 Ml Ampul.neb 3 Ml NEB Q4HRS Uriel-Tab (Erythromycin Base) 250 Mg Tablet.dr 250 Mg PO BID Diltiazem 24HR Cd (Diltiazem Hcl) 120 Mg Cap.er.24h 1 Cap PO DAILY Carvedilol (Carvedilol) 12.5 Mg Tablet 12.5 Mg PO BIDWMEALS Tylenol (Acetaminophen) 325 Mg Tablet 2 Tab PO PRN Q6HRS Oxycodone-Acetaminophen 10-325 (Oxycodone Hcl/Acetaminophen) 1 Each Tablet 1 Tab PO Q4HRS Renvela (Sevelamer Carbonate) 800 Mg Tablet 2 Tab PO TID Melatonin 3 Mg Tablet 9 Mg PO QHS Lantus Solostar (Insulin Glargine,Hum.rec.anlog) 100 Unit/1 Ml Insuln.pen 15 Unit SQ QHS Duoneb 0.5-3(2.5) Mg/3 Ml (Albuterol/Ipratropium) 3 Ml Ampul.neb 3 Ml NEB QID PRN Humalog (Insulin Lispro) 100 Unit/1 Ml Vial 0 SQ TID Humalog (Insulin Lispro) 100 Unit/1 Ml Vial 5 Unit SQ TIDWMEALS Guaifenesin 600 Mg Tablet.er 600 Mg PO BID [place] Saline (Sodium Chloride) 50 Ml [place] 1 [place] NS BID PRN Acetaminophen 500 Mg Tablet 650 Mg PO Q6HRS PRN Aspirin 81 Mg Tab.chew 1 Tab PO DAILY Calcitriol 0.25 Mcg Capsule 1 Cap PO DAILY Pepcid (Famotidine) 20 Mg Tablet 20 Mg PO HS Niacin 250 Mg Tablet 250 Mg PO BID Miralax (Polyethylene Glycol 3350) 17 Gm Powd.pack 1 Packet PO Q 8HRS PRN Hydralazine Hcl 10 Mg Tablet 1 Tab PO PRN TID PRN Ferrous Sulfate 325 Mg Tablet 1 Tab PO DAILY Diphenhydramine Hcl 50 Mg Capsule 1 Cap PO PRN Q8HRS PRN Prochlorperazine Maleate 10 Mg Tablet 1 Tab PO PRN Q6HRS PRN Tegretol (Carbamazepine) 200 Mg Tablet 1 Tab PO BID Amiodarone Hcl 200 Mg Tablet 1 Tab PO DAILY Lipitor (Atorvastatin Calcium) 80 Mg Tablet 80 Mg PO HS Docusate Sodium 100 Mg Capsule 1 Cap PO Q8HRS PRN Vitals/I & O Vital Sign - Last 24 Hours 08/26/18 08/26/18 08/26/18 08/26/18 15:54 18:12 19:45 20:00 Temp 97.5 97.5 Pulse 125 91 Resp 16 B/P (MAP) 98/57 120/56 (77) Pulse Ox 100 O2 Delivery Room Air Room Air O2 Flow Rate 2.0 08/26/18 08/26/18 08/27/18 08/27/18 21:20 23:03 01:20 03:45 Temp 98.3 98.8 98.3 98.8 Pulse 83 94 Resp 16 12 B/P (MAP) 125/57 (79) 114/53 (73) Pulse Ox 95 98 O2 Delivery Room Air Room Air 08/27/18 08/27/18 08/27/18 08/27/18 07:00 07:35 08:41 08:42 Temp 97.9 97.9 Pulse 73 94 94 Resp 17 B/P (MAP) 122/56 (78) 114/53 114/53 Pulse Ox 82 97 O2 Delivery Room Air 08/27/18 08/27/18 08/27/18 08/27/18 10:45 12:05 12:05 12:15 Temp 84 97.5 97.5 84.0 97.5 97.5 Pulse 84 74 76 Resp 18 13 13 B/P (MAP) 111/54 108/52 108/52 Pulse Ox 97 100 100 O2 Delivery Room Air Mask Simple Mask Simple Mask O2 Flow Rate 8 8 8 08/27/18 08/27/18 08/27/18 12:30 12:45 13:00 Temp 97.5 98.0 98.0 97.5 98.0 98.0 Pulse 78 74 86 Resp 13 18 18 B/P (MAP) 102/54 119/56 106/61 Pulse Ox 100 100 99 O2 Delivery Nasal Cannula Room Air O2 Flow Rate 4 Intake and Output 08/26/18 08/26/18 08/27/18 15:00 23:00 07:00 Intake Total 230 ml 100 ml 150 ml Balance 230 ml 100 ml 150 ml Problem List Anemia- with ESRD, constipation, noted in noted, patient denies, relistor and/or amitiza options if symptoms persist/worsen CECE GRAHAM MD August 27, 2018 14:33
[2018-08-27] MEDS: MORPHINE SULFATE 2 MG/ML VIAL. IV PRN (15:23)
[2018-08-27] MEDS: CEFEPIME HCL IV Push 1 GM VIAL. IVP SCH (15:23)
[2018-08-27] MEDS: IV DEXTROSE 5 %-0.45 % NACL 1,000 ML IV SCH (15:39)
[2018-08-27] MEDS: PATCH REMOVAL. MC SCH (21:00)
[2018-08-27] MEDS: FAMOTIDINE 20 MG TABLET. PO SCH (21:00)
[2018-08-27] MEDS: DARBEPOETIN ALFA 60 MCG/0.3 ML DISP.SYRIN. SQ SCH (21:19)
[2018-08-27] MEDS: ATORVASTATIN CALCIUM 40 MG TABLET. PO SCH (21:20)
[2018-08-27] MEDS: INSULIN GLARGINE 300 UNITS/3 ML INSULN.PEN. SQ SCH (21:24)
[2018-08-28 03:40] VITALS: BP 117/57
[2018-08-28] MEDS: IPRATRPIUM/ALBUTEROL 0.5/2.5MG 3 ML NEBU. NEB SCH ×5 (04:00→20:00)
[2018-08-28 05:28] LABS: ALBUMIN 1.6 g/dL (3.4-5.0); CALCIUM 8.2 mg/dL (8.5-10.1); CREATININE 3.6 mg/dL (0.6-1.0); GFR 13.3; PHOSPHORUS 3.3 mg/dL (2.6-4.7); POTASSIUM 4.4 mmol/L (3.5-5.1)
[2018-08-28 07:00] VITALS: BP 123/61
[2018-08-28] MEDS: LUBIPROSTONE 8 MCG CAPSULE PO SCH ×2 (08:00→17:26)
[2018-08-28] MEDS: SEVELAMER CARBONATE 800 MG TABLET. PO SCH ×3 (08:00→17:26)
[2018-08-28] MEDS: CARVEDILOL 12.5 MG TABLET. PO SCH ×2 (08:00→17:26)
[2018-08-28] MEDS: INSULIN LISPRO 300 UNITS/3 ML INSULN.PEN. SQ SCH ×7 (08:00→17:35)
[2018-08-28] MEDS: IV DEXTROSE 5 %-0.45 % NACL 1,000 ML IV SCH (08:45)
[2018-08-28] MEDS: POLYETHYLENE GLYCOL 3350 17 GM PACKET. PO SCH ×2 (09:00→19:41)
[2018-08-28] MEDS: TICAGRELOR 90 MG TABLET. PO SCH ×2 (09:00→20:01)
[2018-08-28] MEDS: LACTOBACILLUS RHAMNOSUS GG 1 CAPSULE. PO SCH ×2 (09:00→20:01)
[2018-08-28] MEDS: LIDOCAINE (700MG/PATCH) PATCH. TD SCH (09:00)
[2018-08-28] MEDS: ERYTHROMYCIN BASE 250 MG TABLET PO SCH ×2 (09:00→20:01)
[2018-08-28] MEDS: NIACIN ER 250 MG TABLET.ER PO SCH ×2 (09:00→20:01)
[2018-08-28] MEDS: MORPHINE ER 15 MG TABLET.ER PO SCH ×2 (09:00→20:01)
--- NOTE | 2018-08-28 09:00 | PDOC ---
SURGICAL PROGRESS NOTE Subjective some pain to sacral wound noted moving toward more comfort care and dc thursday likely Vital Signs Vital Signs Date Time Temp Pulse Resp B/P (MAP) Pulse Ox O2 Delivery O2 Flow Rate FiO2 08/28/18 07:37 94 Room Air 08/28/18 07:00 97.6 82 16 123/61 (81) 97.6 08/28/18 03:12 8.0 I&O Intake and Output 08/28/18 06:59 Intake Total 1310 ml Output Total 0 ml Balance 1310 ml Intake Oral 260 ml IV Total 1050 ml Output Urine Total 0 ml Estimated Blood Loss 0 ml General: Cooperative, No acute distress Skin: Other (dressing dry) Labs Laboratory Tests Test 08/26/18 16:53 08/26/18 20:10 08/27/18 03:55 08/27/18 07:44 Glucose (Fingerstick) 86 mg/dL (70-99) 201 mg/dL (70-99) 145 mg/dL (70-99) Sodium Level 134 mmol/L (136-145) Potassium Level 3.9 mmol/L (3.5-5.1) Chloride Level 98 mmol/L (98-107) Carbon Dioxide Level 26 mmol/L (21-32) Anion Gap 10 (6-14) Blood Urea Nitrogen 27 mg/dL (7-20) Creatinine 2.8 mg/dL (0.6-1.0) Estimated GFR (Cockcroft-Gault) 17.7 Glucose Level 155 mg/dL (70-99) Calcium Level 8.6 mg/dL (8.5-10.1) Phosphorus Level 2.3 mg/dL (2.6-4.7) Albumin 1.7 g/dL (3.4-5.0) Test 08/27/18 11:05 08/27/18 12:18 08/27/18 15:32 08/27/18 20:03 Glucose (Fingerstick) 155 mg/dL (70-99) 158 mg/dL (70-99) 154 mg/dL (70-99) 274 mg/dL (70-99) Test 08/28/18 04:15 08/28/18 07:51 Sodium Level 134 mmol/L (136-145) Potassium Level 4.4 mmol/L (3.5-5.1) Chloride Level 97 mmol/L (98-107) Carbon Dioxide Level 27 mmol/L (21-32) Anion Gap 10 (6-14) Blood Urea Nitrogen 41 mg/dL (7-20) Creatinine 3.6 mg/dL (0.6-1.0) Estimated GFR (Cockcroft-Gault) 13.3 Glucose Level 288 mg/dL (70-99) Calcium Level 8.2 mg/dL (8.5-10.1) Phosphorus Level 3.3 mg/dL (2.6-4.7) Albumin 1.6 g/dL (3.4-5.0) Glucose (Fingerstick) 250 mg/dL (70-99) Laboratory Tests Test 08/27/18 11:05 08/27/18 12:18 08/27/18 15:32 08/27/18 20:03 Glucose (Fingerstick) 155 mg/dL (70-99) 158 mg/dL (70-99) 154 mg/dL (70-99) 274 mg/dL (70-99) Test 08/28/18 04:15 08/28/18 07:51 Sodium Level 134 mmol/L (136-145) Potassium Level 4.4 mmol/L (3.5-5.1) Chloride Level 97 mmol/L (98-107) Carbon Dioxide Level 27 mmol/L (21-32) Anion Gap 10 (6-14) Blood Urea Nitrogen 41 mg/dL (7-20) Creatinine 3.6 mg/dL (0.6-1.0) Estimated GFR (Cockcroft-Gault) 13.3 Glucose Level 288 mg/dL (70-99) Calcium Level 8.2 mg/dL (8.5-10.1) Phosphorus Level 3.3 mg/dL (2.6-4.7) Albumin 1.6 g/dL (3.4-5.0) Glucose (Fingerstick) 250 mg/dL (70-99) Problem List s/p debridement wound care available as needed MARIS MI APRN August 28, 2018 09:00
[2018-08-28] MEDS ORDERED: IV NORMAL SALINE 1000ML BAG 1,000 ML IV PRN ×2 (09:20)
[2018-08-28] MEDS ORDERED: 0.9 % SODIUM CHLORIDE 10 ML DISP.SYRIN. IV PRN ×2 (09:30)
[2018-08-28] MEDS ORDERED: DIALYSIS PATIENT. MC PRN ×2 (09:30)
[2018-08-28] MEDS ORDERED: ALBUMIN HUMAN 25% 200 ML IV PRN (09:30)
[2018-08-28] MEDS: MORPHINE SULFATE 2 MG/ML VIAL. IV PRN ×2 (10:45→14:10)
--- NOTE | 2018-08-28 11:16 | NUR ---
Pt taken to dialysis per bed. Received orders from Dr Guy to discontinue fluids.
--- NOTE | 2018-08-28 12:30 | PDOC ---
Renal-Progress Notes Subjective Notes Notes NO NEW COMPLAINTS History of Present Illness Hx of present illness STABLE Vitals Vitals Vital Signs Date Time Temp Pulse Resp B/P (MAP) Pulse Ox O2 Delivery O2 Flow Rate FiO2 08/28/18 10:45 17 Room Air 08/28/18 07:37 94 08/28/18 07:00 97.6 82 123/61 (81) 97.6 08/28/18 03:12 8.0 Weight Weight [ ] I.O. Intake and Output Intake and Output 08/28/18 07:00 Intake Total 1310 ml Output Total 0 ml Balance 1310 ml Intake Oral 260 ml IV Total 1050 ml Output Urine Total 0 ml Estimated Blood Loss 0 ml Labs Labs Laboratory Tests Test 08/27/18 15:32 08/27/18 20:03 08/28/18 04:15 08/28/18 07:51 Glucose (Fingerstick) 154 mg/dL (70-99) 274 mg/dL (70-99) 250 mg/dL (70-99) Sodium Level 134 mmol/L (136-145) Potassium Level 4.4 mmol/L (3.5-5.1) Chloride Level 97 mmol/L (98-107) Carbon Dioxide Level 27 mmol/L (21-32) Anion Gap 10 (6-14) Blood Urea Nitrogen 41 mg/dL (7-20) Creatinine 3.6 mg/dL (0.6-1.0) Estimated GFR (Cockcroft-Gault) 13.3 Glucose Level 288 mg/dL (70-99) Calcium Level 8.2 mg/dL (8.5-10.1) Phosphorus Level 3.3 mg/dL (2.6-4.7) Albumin 1.6 g/dL (3.4-5.0) Micro Micro Microbiology 08/21/18 Blood Culture - Final, Complete NO GROWTH AFTER 5 DAYS Review of Systems Constitutional: yes: alert, oriented Ears/Nose/Throat: Yes: no symptom reported Eyes: Yes: no symptom reported Pulmonary: Yes cough dry Gastrointestional: Yes: constipation Genitourinary: Yes: other (ANURIA) Musculoskeletal: Yes: foot pain, muscle pain, muscle stiffness Skin: Yes color change Psychiatric/Neurological: Yes: depressed Endocrine: Yes: no symptom reported Physical Exam General Appearance: no apparent distress Skin: warm Respiratory: bilateral CTA Heart: S1S2 Abdomen: soft Genitourinary: bladder flat Extremities: pulses present Neurology: alert Musculoskeletal: Osteoarthritis Assessment Assessment IMP RECTAL BLEEDING-STABLE ANEMIA DM II HTN DECONDITIONING CHRONIC CONSTIPATION LEUCOCYTOSIS PLAN ARANESP HD TODAY UF TO DW CHARLY ZAVALA MD August 28, 2018 12:30
--- NOTE | 2018-08-28 14:52 | PDOC ---
PROGRESS NOTES Chief Complaint Chief Complaint sepsis rectal bleeding opioid induced constipation, recent impaction, relistor? GI consult Dm1 CAD, ESRD chronic elevated troponin s/p BKA, poorly mobile acute on chronic pain, opioid dependence Guarded prognosis History of Present Illness History of Present Illness Pt seen and examined at dialysis ongoign pain, Vitals Vitals Vital Signs Date Time Temp Pulse Resp B/P (MAP) Pulse Ox O2 Delivery O2 Flow Rate FiO2 08/28/18 14:10 17 Room Air 08/28/18 07:37 94 08/28/18 07:00 97.6 82 123/61 (81) 97.6 08/28/18 03:12 8.0 Physical Exam Physical Exam GENERAL: Minimal responce HEENT: Normal conjunctivae. Oral cavity: Pharynx dry. NECK: Supple. LUNGS: Clear to auscultation. HEART: S1 and S2. Murmur present. Buttock: Large wound EXTREMITIES: No gross edema or cyanosis. Previous left BKA. SKIN: Warm without rash. She has multiple wounds. General: Cooperative, No acute distress Heart: Regular rate, Normal S1, Normal S2 Lungs: Clear, Other Abdomen: Soft, No tenderness Extremities: Other (amputation) Skin: Other (dressing dry) Labs LABS Laboratory Tests Test 08/27/18 15:32 08/27/18 20:03 08/28/18 04:15 08/28/18 07:51 Glucose (Fingerstick) 154 mg/dL (70-99) 274 mg/dL (70-99) 250 mg/dL (70-99) Sodium Level 134 mmol/L (136-145) Potassium Level 4.4 mmol/L (3.5-5.1) Chloride Level 97 mmol/L (98-107) Carbon Dioxide Level 27 mmol/L (21-32) Anion Gap 10 (6-14) Blood Urea Nitrogen 41 mg/dL (7-20) Creatinine 3.6 mg/dL (0.6-1.0) Estimated GFR (Cockcroft-Gault) 13.3 Glucose Level 288 mg/dL (70-99) Calcium Level 8.2 mg/dL (8.5-10.1) Phosphorus Level 3.3 mg/dL (2.6-4.7) Albumin 1.6 g/dL (3.4-5.0) Comment Review of Relevant I have reviewed the following items bert (where applicable) has been applied. Labs Laboratory Tests Test 08/26/18 16:53 08/26/18 20:10 08/27/18 03:55 08/27/18 07:44 Glucose (Fingerstick) 86 mg/dL (70-99) 201 mg/dL (70-99) 145 mg/dL (70-99) Sodium Level 134 mmol/L (136-145) Potassium Level 3.9 mmol/L (3.5-5.1) Chloride Level 98 mmol/L (98-107) Carbon Dioxide Level 26 mmol/L (21-32) Anion Gap 10 (6-14) Blood Urea Nitrogen 27 mg/dL (7-20) Creatinine 2.8 mg/dL (0.6-1.0) Estimated GFR (Cockcroft-Gault) 17.7 Glucose Level 155 mg/dL (70-99) Calcium Level 8.6 mg/dL (8.5-10.1) Phosphorus Level 2.3 mg/dL (2.6-4.7) Albumin 1.7 g/dL (3.4-5.0) Test 08/27/18 11:05 08/27/18 12:18 08/27/18 15:32 08/27/18 20:03 Glucose (Fingerstick) 155 mg/dL (70-99) 158 mg/dL (70-99) 154 mg/dL (70-99) 274 mg/dL (70-99) Test 08/28/18 04:15 08/28/18 07:51 Sodium Level 134 mmol/L (136-145) Potassium Level 4.4 mmol/L (3.5-5.1) Chloride Level 97 mmol/L (98-107) Carbon Dioxide Level 27 mmol/L (21-32) Anion Gap 10 (6-14) Blood Urea Nitrogen 41 mg/dL (7-20) Creatinine 3.6 mg/dL (0.6-1.0) Estimated GFR (Cockcroft-Gault) 13.3 Glucose Level 288 mg/dL (70-99) Calcium Level 8.2 mg/dL (8.5-10.1) Phosphorus Level 3.3 mg/dL (2.6-4.7) Albumin 1.6 g/dL (3.4-5.0) Glucose (Fingerstick) 250 mg/dL (70-99) Laboratory Tests Test 08/27/18 15:32 08/27/18 20:03 08/28/18 04:15 08/28/18 07:51 Glucose (Fingerstick) 154 mg/dL (70-99) 274 mg/dL (70-99) 250 mg/dL (70-99) Sodium Level 134 mmol/L (136-145) Potassium Level 4.4 mmol/L (3.5-5.1) Chloride Level 97 mmol/L (98-107) Carbon Dioxide Level 27 mmol/L (21-32) Anion Gap 10 (6-14) Blood Urea Nitrogen 41 mg/dL (7-20) Creatinine 3.6 mg/dL (0.6-1.0) Estimated GFR (Cockcroft-Gault) 13.3 Glucose Level 288 mg/dL (70-99) Calcium Level 8.2 mg/dL (8.5-10.1) Phosphorus Level 3.3 mg/dL (2.6-4.7) Albumin 1.6 g/dL (3.4-5.0) Microbiology 08/21/18 Blood Culture - Final, Complete NO GROWTH AFTER 5 DAYS Medications Current Medications Sodium Chloride 1,000 ml @ 1,000 mls/hr 1X ONCE IV Last administered on 08/20/18 04:28; Start 08/20/18 at 03:00; Stop 08/20/18 at 03:59; Status DC Cefepime HCl (Maxipime) 2 gm 1X ONCE IVP Last administered on 08/20/18 04:28; Start 08/20/18 at 03:00; Stop 08/20/18 at 03:01; Status DC Ondansetron HCl (Zofran) 4 mg PRN Q8HRS PRN IV NAUSEA/VOMITING 1ST CHOICE Last administered on 08/20/18 07:27; Start 08/20/18 at 05:00; Stop 08/21/18 at 04:59; Status DC Insulin Human Lispro (HumaLOG) 0-5 UNITS TIDWMEALS SQ Last administered on 12:41; Start 08/20/18 at 08:00 Dextrose (Dextrose 50%-Water Syringe) 12.5 gm PRN Q15MIN PRN IV SEE COMMENTS Last administered on 08/26/18 08:26; Start 08/20/18 at 05:00 Acetaminophen (Tylenol) 650 mg PRN Q6HRS PRN PO MILD PAIN / TEMP; Start 08/20/18 at 09:30 Amiodarone HCl (Cordarone) 200 mg DAILY PO Last administered on 08/26/18 09:40; Start 08/20/18 at 10:00 Aspirin (Children'S Aspirin) 81 mg DAILY PO Last administered on 08/26/18 09:42; Start 08/20/18 at 10:00 Carbamazepine (TEGretol) 200 mg BID PO Last administered on 08/27/18 21:20; Start 08/20/18 at 10:00 Carvedilol (Coreg) 12.5 mg BIDWMEALS PO Last administered on 08/27/18 08:41; Start 08/20/18 at 10:00 Docusate Sodium (Colace) 100 mg PRN Q8HRS PRN PO CONSTIPATION; Start 08/20/18 at 09:30 Famotidine (Pepcid) 20 mg HS PO Last administered on 08/27/18 21:00; Start 08/20/18 at 21:00 Guaifenesin (Mucinex) 600 mg BID PO Last administered on 08/27/18 21:20; Start 08/20/18 at 10:00 Insulin Glargine (Lantus) 15 units QHS SQ Last administered on 08/27/18 21:24; Start 08/20/18 at 21:00 Insulin Human Lispro (HumaLOG) 5 units TIDWMEALS SQ Last administered on 08/28/18 09:10; Start 08/20/18 at 12:00 Insulin Human Lispro (HumaLOG VIAL) 5 unit TIDWMEALS SQ ; Start 08/20/18 at 12:00; Status UNV Albuterol/ Ipratropium (Duoneb) 3 ml Q4HRS NEB Last administered on 08/28/18 07:36; Start 08/20/18 at 12:00 Albuterol Sulfate (Ventolin Neb Soln) 2.5 mg PRN Q4HRS PRN NEB SHORTNESS OF BREATH; Start 08/20/18 at 09:45 Morphine Sulfate (Ms Contin) 30 mg BID PO Last administered on 08/27/18 21:21; Start 08/20/18 at 10:00 Nystatin (Nystop) 1 susanna BID TP Last administered on 08/27/18 21:00; Start 08/20/18 at 10:00 Oxycodone/ Acetaminophen (Percocet 10/325) 1 tab PRN Q4HRS PRN PO MODERATE - SEVERE PAIN Last administered on 08/24/18 12:46; Start 08/20/18 at 12:00 Prochlorperazine Maleate (Compazine) 10 mg PRN Q6HRS PRN PO NAUSEA/VOMITING,2ND CHOICE; Start 08/20/18 at 09:30 Sevelamer Carbonate (Renvela) 1,600 mg TIDWMEALS PO Last administered on 08/27/18 17:30; Start 08/20/18 at 12:00 Ticagrelor (Brilinta) 90 mg BID PO Last administered on 08/27/18 21:20; Start 08/20/18 at 10:00 Atorvastatin Calcium (Lipitor) 80 mg QHS PO Last administered on 08/27/18 21:20; Start 08/20/18 at 21:00 Calcitriol (Rocaltrol) 0.25 mcg DAILY PO Last administered on 08/26/18 09:41; Start 08/20/18 at 10:00 Diltiazem HCl (Cardizem 24hr Cd) 120 mg DAILY PO Last administered on 08/27/18 08:42; Start 08/20/18 at 10:00 Erythromycin (E-Mycin) 250 mg BID PO Last administered on 08/27/18 21:20; Start 08/20/18 at 10:00 Hydralazine HCl (Apresoline) 10 mg PRN TID PRN PO ELEVATED BP; Start 08/20/18 at 14:00 Lidocaine (Lidoderm) 1 patch DAILY TD Last administered on 08/24/18 12:51; Start 08/20/18 at 10:00 Non-Formulary Medication (Melatonin ) 9 mg QHS PO ; Start 08/20/18 at 21:00; Status UNV Niacin (Slo-Niacin) 250 mg BID PO Last administered on 08/27/18 21:00; Start 08/20/18 at 10:00 Ondansetron HCl (Zofran Odt) 4 mg PRN Q6HRS PRN PO NAUSEA/VOMITING, 1ST CHOICE; Start 08/20/18 at 09:45 Polyethylene Glycol (miraLAX PACKET) 17 gm PRN Q8HRS PRN PO CONSTIPATION; Start 08/20/18 at 09:42; Stop 08/20/18 at 12:24; Status DC Sodium Chloride (Platinum Saline Nasal) 1 susanna PRN BID PRN NS NASAL CONGESTION; Start 08/20/18 at 10:00 Hydromorphone HCl (Dilaudid) 1 mg PRN Q4HRS PRN IVP SEVERE PAIN Last administered on 08/21/18at 05:42; Start 08/20/18 at 09:30 Miscellaneous (Lidoderm Patch Removal) 1 ea QHS MC Last administered on 08/27/18at 21:00; Start 08/20/18 at 21:00 Darbepoetin Mauricio (Aranesp) 60 mcg Fr SQ Last administered on 08/27/18 21:19; Start 08/20/18 at 21:00 Polyethylene Glycol (miraLAX PACKET) 17 gm BID PO Last administered on 08/27/18at 21:00; Start 08/20/18 at 21:00 Lubiprostone (Amitiza) 24 mcg BIDWMEALS PO Last administered on 08/27/18 17:31; Start 08/20/18 at 17:00 Sodium Chloride 1,000 ml @ 1,000 mls/hr Q1H PRN IV hypotension; Start 08/21/18 at 09:50; Stop 08/21/18 at 15:49; Status DC Info (PHARMACY MONITORING -- do not chart) 1 each PRN DAILY PRN MC SEE COMMENTS; Start 08/21/18 at 10:00; Status UNV Info (PHARMACY MONITORING -- do not chart) 1 each PRN DAILY PRN MC SEE COMMENTS; Start 08/21/18 at 10:00 Vancomycin HCl 500 mg/Sodium Chloride 100 ml @ 100 mls/hr 1X ONCE IV ; Start 08/21/18 at 12:00; Stop 08/21/18 at 12:59; Status UNV Vancomycin HCl 1.5 gm/Sodium Chloride 500 ml @ 250 mls/hr 1X ONCE IV Last administered on 08/21/18at 12:55; Start 08/21/18 at 10:15; Stop 08/21/18 at 12:14; Status DC Vancomycin HCl (Vanco Per Pharmacy) 1 each PRN DAILY PRN MC SEE COMMENTS Last administered on 08/27/18at 11:42; Start 08/22/18 at 11:15 Vancomycin HCl 500 mg/Sodium Chloride 100 ml @ 100 mls/hr [id number]@1600 IV Last administered on 08/26/18at 15:54; Start 08/24/18 at 16:00 Vancomycin HCl (Vancomycin Random Level) 1 each 1X ONCE MC Last administered on 08/24/18at 05:00; Start 08/24/18 at 05:00; Stop 08/24/18 at 05:01; Status DC Glucose (Insta-Glucose) 15 gm STK-MED ONCE .ROUTE ; Start 08/23/18 at 07:42; Stop 08/23/18 at 07:43; Status DC Dextrose/Sodium Chloride 1,000 ml @ 75 mls/hr [id number] IV Last administered on 08/28/18at 08:45; Start 08/23/18 at 08:45; Stop 08/28/18 at 11:18; Status DC Glucose (Insta-Glucose) 15 gm PRN Q15MIN PRN PO LOW BLOOD SUGAR; Start 08/23/18 at 09:15 Lactobacillus Rhamnosus (Culturelle) 1 cap BID PO Last administered on 08/27/18at 21:21; Start 08/23/18 at 21:00 Sodium Chloride 1,000 ml @ 1,000 mls/hr Q1H PRN IV hypotension; Start 08/24/18 at 07:28; Stop 08/24/18 at 13:27; Status DC Albumin Human 200 ml @ 200 mls/hr 1X PRN PRN IV Hypotension; Start 08/24/18 at 07:30; Stop 08/24/18 at 13:29; Status DC Acetaminophen (Tylenol) 500 mg 1X PRN PRN PO MILD PAIN / TEMP; Start 08/24/18 at 07:30; Stop 08/25/18 at 07:29; Status DC Diphenhydramine HCl (Benadryl) 25 mg 1X PRN PRN IV ITCHING; Start 08/24/18 at 07:30; Stop 08/25/18 at 07:29; Status DC Diphenhydramine HCl (Benadryl) 25 mg 1X PRN PRN IV ITCHING; Start 08/24/18 at 07:30; Stop 08/25/18 at 07:29; Status DC Sodium Chloride 1,000 ml @ 400 mls/hr Q2H30M PRN IV PATENCY; Start 08/24/18 at 07:28; Stop 08/24/18 at 19:27; Status DC Info (PHARMACY MONITORING -- do not chart) 1 each PRN DAILY PRN MC SEE COMMENTS; Start 08/24/18 at 07:30; Status UNV Cefepime HCl (Maxipime) 1 gm Q24H IVP Last administered on 08/27/18at 15:23; Start 08/24/18 at 14:30 Sodium Hypochlorite (Dakin'S 04/30 Strength) 1 susanna QODAY TP Last administered on 08/25/18at 15:30; Start 08/25/18 at 15:30 Sodium Chloride 1,000 ml @ 1,000 mls/hr Q1H PRN IV hypotension; Start 08/26/18 at 10:44; Stop 08/26/18 at 16:43; Status DC Diphenhydramine HCl (Benadryl) 25 mg 1X PRN PRN IV ITCHING; Start 08/26/18 at 10:45; Stop 08/27/18 at 10:44; Status DC Diphenhydramine HCl (Benadryl) 25 mg 1X PRN PRN IV ITCHING; Start 08/26/18 at 10:45; Stop 08/27/18 at 10:44; Status DC Sodium Chloride 1,000 ml @ 400 mls/hr Q2H30M PRN IV PATENCY; Start 08/26/18 at 10:44; Stop 08/26/18 at 22:43; Status DC Info (PHARMACY MONITORING -- do not chart) 1 each PRN DAILY PRN MC SEE COMMENTS ; Start 08/26/18 at 10:45; Status UNV Propofol 20 ml @ As Directed STK-MED ONCE IV ; Start 08/27/18 at 11:15; Stop 08/27/18 at 11:16; Status DC Lidocaine HCl (Lidocaine Pf 2% Vial) 5 ml STK-MED ONCE .ROUTE ; Start 08/27/18 at 11:15; Stop 08/27/18 at 11:16; Status DC Fentanyl Citrate (Fentanyl 2ml Vial) 100 mcg STK-MED ONCE .ROUTE ; Start 08/27/18 at 11:15; Stop 08/27/18 at 11:16; Status DC Ondansetron HCl (Zofran) 4 mg STK-MED ONCE .ROUTE ; Start 08/27/18 at 11:15; Stop 08/27/18 at 11:16; Status DC Ephedrine Sulfate (ePHEDrine PF IN SALINE SYRINGE) 50 mg STK-MED ONCE IV ; Start 08/27/18 at 11:28; Stop 08/27/18 at 11:29; Status DC Dexamethasone Sodium Phosphate (Decadron) 4 mg STK-MED ONCE .ROUTE ; Start 08/27/18 at 11:47; Stop 08/27/18 at 11:48; Status DC Sodium Chloride (Normal Saline Flush) 3 ml QSHIFT PRN IV AFTER MEDS AND BLOOD DRAWS; Start 08/27/18 at 12:45 Morphine Sulfate (Morphine Sulfate) 2 mg PRN Q2HR PRN IV MODERATE PAIN Last administered on 08/28/18at 14:10; Start 08/27/18 at 14:00 Sodium Chloride 1,000 ml @ 1,000 mls/hr Q1H PRN IV hypotension; Start 08/28/18 at 09:20; Stop 08/28/18 at 15:19 Albumin Human 200 ml @ 200 mls/hr 1X PRN PRN IV Hypotension; Start 08/28/18 at 09:30; Stop 08/28/18 at 15:29 Sodium Chloride (Normal Saline Flush) 10 ml 1X PRN PRN IV AP catheter pack; Start 08/28/18 at 09:30; Stop 08/29/18 at 09:29 Sodium Chloride (Normal Saline Flush) 10 ml 1X PRN PRN IV [employer]OR catheter pack; Start 08/28/18 at 09:30; Stop 08/29/18 at 09:29 Sodium Chloride 1,000 ml @ 400 mls/hr Q2H30M PRN IV PATENCY; Start 08/28/18 at 09:20; Stop 08/28/18 at 21:19 Info (PHARMACY MONITORING -- do not chart) 1 each PRN DAILY PRN MC SEE COMMENTS; Start 08/28/18 at 09:30; Status UNV Info (PHARMACY MONITORING -- do not chart) 1 each PRN DAILY PRN MC SEE COMMENTS; Start 08/28/18 at 09:30 Active Scripts Active Nystop (Nystatin) 60 Gm Powder 1 Susanna TP BID MDD 1 Morphine Sulfate Er (Morphine Sulfate) 30 Mg Tablet.er 1 Tab PO BID MDD 1 Tramadol Hcl 50 Mg Tablet 50 Mg PO Q4HRS PRN MDD 1 Brilinta (Ticagrelor) 90 Mg Tablet 90 Mg PO BID 30 Days Reported Zofran (Ondansetron Hcl) 4 Mg Tablet 1 Tab PO Q6HRS Lidocaine 1 Each Adh..patch 1 Each TP DAILY Duoneb 0.5-3(2.5) Mg/3 Ml (Albuterol/Ipratropium) 3 Ml Ampul.neb 3 Ml NEB Q4HRS Uriel-Tab (Erythromycin Base) 250 Mg Tablet.dr 250 Mg PO BID Diltiazem 24HR Cd (Diltiazem Hcl) 120 Mg Cap.er.24h 1 Cap PO DAILY Carvedilol (Carvedilol) 12.5 Mg Tablet 12.5 Mg PO BIDWMEALS Tylenol (Acetaminophen) 325 Mg Tablet 2 Tab PO PRN Q6HRS Oxycodone-Acetaminophen 10-325 (Oxycodone Hcl/Acetaminophen) 1 Each Tablet 1 Tab PO Q4HRS Renvela (Sevelamer Carbonate) 800 Mg Tablet 2 Tab PO TID Melatonin 3 Mg Tablet 9 Mg PO QHS Lantus Solostar (Insulin Glargine,Hum.rec.anlog) 100 Unit/1 Ml Insuln.pen 15 Unit SQ QHS Duoneb 0.5-3(2.5) Mg/3 Ml (Albuterol/Ipratropium) 3 Ml Ampul.neb 3 Ml NEB QID PRN Humalog (Insulin Lispro) 100 Unit/1 Ml Vial 0 SQ TID Humalog (Insulin Lispro) 100 Unit/1 Ml Vial 5 Unit SQ TIDWMEALS Guaifenesin 600 Mg Tablet.er 600 Mg PO BID Platinum Saline (Sodium Chloride) 50 Ml [place] 1 [place] NS BID PRN Acetaminophen 500 Mg Tablet 650 Mg PO Q6HRS PRN Aspirin 81 Mg Tab.chew 1 Tab PO DAILY Calcitriol 0.25 Mcg Capsule 1 Cap PO DAILY Pepcid (Famotidine) 20 Mg Tablet 20 Mg PO HS Niacin 250 Mg Tablet 250 Mg PO BID Miralax (Polyethylene Glycol 3350) 17 Gm Powd.pack 1 Packet PO Q 8HRS PRN Hydralazine Hcl 10 Mg Tablet 1 Tab PO PRN TID PRN Ferrous Sulfate 325 Mg Tablet 1 Tab PO DAILY Diphenhydramine Hcl 50 Mg Capsule 1 Cap PO PRN Q8HRS PRN Prochlorperazine Maleate 10 Mg Tablet 1 Tab PO PRN Q6HRS PRN Tegretol (Carbamazepine) 200 Mg Tablet 1 Tab PO BID Amiodarone Hcl 200 Mg Tablet 1 Tab PO DAILY Lipitor (Atorvastatin Calcium) 80 Mg Tablet 80 Mg PO HS Docusate Sodium 100 Mg Capsule 1 Cap PO Q8HRS PRN Vitals/I & O Vital Sign - Last 24 Hours 08/27/18 08/27/18 08/27/18 08/27/18 15:15 15:21 15:23 15:56 Pulse 97 B/P (MAP) 98/53 (68) Pulse Ox 87 91 O2 Delivery Room Air Room Air Room Air 08/27/18 08/27/18 08/27/18 08/27/18 16:15 17:00 17:20 19:20 Temp 97.6 97.6 97.6 97.6 Pulse 85 88 93 93 Resp 12 12 B/P (MAP) 116/59 (78) 98/53 120/51 (74) 120/51 (74) Pulse Ox 95 98 98 08/27/18 08/27/18 08/27/18 08/27/18 19:46 20:00 21:21 23:15 Temp 98.2 98.2 Pulse 86 Resp 12 B/P (MAP) 116/55 (75) Pulse Ox 100 100 98 O2 Delivery Room Air Room Air Room Air Room Air O2 Flow Rate 8 8.0 08/27/18 08/28/18 08/28/18 08/28/18 23:44 03:12 03:40 07:00 Temp 97.6 97.6 97.6 97.6 Pulse 98 82 Resp 12 16 B/P (MAP) 117/57 (77) 123/61 (81) Pulse Ox 100 100 98 98 O2 Delivery Room Air Room Air Room Air Room Air O2 Flow Rate 8.0 08/28/18 08/28/18 08/28/18 08/28/18 07:37 08:00 10:45 14:10 Resp 17 17 Pulse Ox 94 O2 Delivery Room Air Room Air Room Air Room Air Intake and Output 08/27/18 08/27/18 08/28/18 15:00 23:00 07:00 Intake Total 60 ml 1250 ml Output Total 0 ml Balance 0 ml 60 ml 1250 ml Nutrition Consultation Dietary Evaluation: Recommendations by RD: Increase Calorie Intake, Protein supplementation Comments: continue to encourage po intake nepro and ifeoma for wounds Expected Outcomes/Goals: to meet > 50% est nutr needs via po intake, - met at times, goal ongoing Interpretation of weight loss: >10% in 6 months Malnutrition Findings: Body Fat Depletion (Non Severe: Mild Depletion Weight Status: Underweight ROMI GOSS MD August 28, 2018 14:52
[2018-08-28] MEDS: VANCOMYCIN PER PHARMACY MC PRN (15:13)
[2018-08-28] MEDS: CEFEPIME HCL IV Push 1 GM VIAL. IVP SCH (15:47)
[2018-08-28] MEDS: NYSTATIN TOPICAL POWDER 15GM BOTTLE. TP SCH ×2 (15:59→20:03)
[2018-08-28] MEDS: CALCITRIOL 0.25 MCG CAPSULE. PO SCH (15:59)
[2018-08-28] MEDS: ASPIRIN CHEWABLE 81 MG TABLET. PO SCH (16:00)
[2018-08-28] MEDS: carBAMazepine 200 MG TABLET PO SCH ×2 (16:00→20:01)
[2018-08-28] MEDS: AMIODARONE HCL 200 MG TABLET. PO SCH (16:01)
[2018-08-28] MEDS: VANCOMYCIN 500 MG in IV NORMAL SALINE 100ML 100 ML IV SCH (16:03)
[2018-08-28] MEDS: GABAPENTIN 100 MG CAPSULE. PO SCH ×2 (16:19→20:01)
[2018-08-28 19:20] VITALS: BP 92/46
[2018-08-28] MEDS: PATCH REMOVAL. MC SCH (19:41)
[2018-08-28] MEDS: ATORVASTATIN CALCIUM 40 MG TABLET. PO SCH (20:02)
[2018-08-28] MEDS: MORPHINE SULFATE 4 MG/ML VIAL. IV PRN ×2 (20:02→22:05)
[2018-08-28] MEDS: FAMOTIDINE 20 MG TABLET. PO SCH (20:02)
[2018-08-28] MEDS: oxyCODONE/APAP 10/325 1 TAB TABLET PO PRN (22:03)
[2018-08-28] MEDS: INSULIN GLARGINE 300 UNITS/3 ML INSULN.PEN. SQ SCH (22:19)
[2018-08-28 23:20] VITALS: BP 142/61
[2018-08-29] MEDS: HYDROmorphone 2 MG/ML VIAL IVP PRN (00:23)
[2018-08-29 03:20] VITALS: BP 107/60
[2018-08-29] MEDS: IPRATRPIUM/ALBUTEROL 0.5/2.5MG 3 ML NEBU. NEB SCH ×6 (04:00→20:23)
[2018-08-29] MEDS: MORPHINE SULFATE 4 MG/ML VIAL. IV PRN ×4 (04:07→15:54)
--- NOTE | 2018-08-29 05:42 | NUR ---
Pt sister Chichi called this past evening at [phone]- left message for this telegraphic typewriter operator chief to call her back w/updates on pt as I was in another pt room at the time of her call. Attempted to return call x2- Message received after dialing number given [phone] is "number cannot be reached as dialed."
[2018-08-29 05:49] LABS: ALBUMIN 1.7 g/dL (3.4-5.0); CALCIUM 8.6 mg/dL (8.5-10.1); CREATININE 2.6 mg/dL (0.6-1.0); GFR 19.3; PHOSPHORUS 2.2 mg/dL (2.6-4.7); POTASSIUM 3.9 mmol/L (3.5-5.1)
[2018-08-29 07:00] VITALS: BP 103/56
[2018-08-29] MEDS: CARVEDILOL 12.5 MG TABLET. PO SCH ×2 (08:00→20:31)
[2018-08-29] MEDS: INSULIN LISPRO 300 UNITS/3 ML INSULN.PEN. SQ SCH ×6 (08:00→20:32)
[2018-08-29] MEDS: NYSTATIN TOPICAL POWDER 15GM BOTTLE. TP SCH ×2 (08:25→21:00)
[2018-08-29] MEDS: TICAGRELOR 90 MG TABLET. PO SCH ×2 (08:25→21:00)
[2018-08-29] MEDS: CALCITRIOL 0.25 MCG CAPSULE. PO SCH (08:25)
[2018-08-29] MEDS: ERYTHROMYCIN BASE 250 MG TABLET PO SCH ×2 (08:25→21:00)
[2018-08-29] MEDS: SEVELAMER CARBONATE 800 MG TABLET. PO SCH ×3 (08:25→20:31)
[2018-08-29] MEDS: NIACIN ER 250 MG TABLET.ER PO SCH ×2 (08:25→21:00)
[2018-08-29] MEDS: LUBIPROSTONE 8 MCG CAPSULE PO SCH ×2 (08:25→20:31)
[2018-08-29] MEDS: carBAMazepine 200 MG TABLET PO SCH ×2 (08:26→21:00)
[2018-08-29] MEDS: GABAPENTIN 100 MG CAPSULE. PO SCH ×3 (08:26→21:00)
[2018-08-29] MEDS: LACTOBACILLUS RHAMNOSUS GG 1 CAPSULE. PO SCH ×2 (08:26→21:00)
[2018-08-29] MEDS: ASPIRIN CHEWABLE 81 MG TABLET. PO SCH (08:26)
[2018-08-29] MEDS: AMIODARONE HCL 200 MG TABLET. PO SCH (08:26)
[2018-08-29] MEDS: MORPHINE ER 15 MG TABLET.ER PO SCH ×2 (08:27→21:00)
[2018-08-29] MEDS: POLYETHYLENE GLYCOL 3350 17 GM PACKET. PO SCH ×2 (08:28→21:00)
[2018-08-29] MEDS: LIDOCAINE (700MG/PATCH) PATCH. TD SCH (08:28)
[2018-08-29] MEDS: SODIUM HYPOCHLORITE 0.125% 473 ML BOTTLE. TP SCH (09:00)
[2018-08-29] MEDS ORDERED: MORPHINE SULFATE 20 MG/ML CONC SOLUTION. SL ONE (09:15)
[2018-08-29 11:00] VITALS: BP 89/41
--- NOTE | 2018-08-29 11:09 | PDOC ---
PROGRESS NOTES Chief Complaint Chief Complaint sepsis rectal bleeding opioid induced constipation, recent impaction, relistor? GI consult Dm1 CAD, ESRD chronic elevated troponin s/p BKA, poorly mobile acute on chronic pain, opioid dependence Guarded prognosis History of Present Illness History of Present Illness Pt seen and examined at dialysis ongoign pain, more clear, more alert, still having severe pain Vitals Vitals Vital Signs Date Time Temp Pulse Resp B/P (MAP) Pulse Ox O2 Delivery O2 Flow Rate FiO2 08/29/18 10:59 17 Room Air 08/29/18 08:26 89 103/56 08/29/18 08:00 8.0 08/29/18 07:00 97.8 98 97.8 Physical Exam Physical Exam GENERAL: Minimal responce HEENT: Normal conjunctivae. Oral cavity: Pharynx dry. NECK: Supple. LUNGS: Clear to auscultation. HEART: S1 and S2. Murmur present. Buttock: Large wound EXTREMITIES: No gross edema or cyanosis. Previous left BKA. SKIN: Warm without rash. She has multiple wounds. General: Cooperative, No acute distress Heart: Regular rate, Normal S1, Normal S2 Lungs: Clear, Other Abdomen: Soft, No tenderness Extremities: Other (amputation) Skin: Other (dressing dry) Labs LABS Laboratory Tests Test 08/28/18 15:41 08/28/18 17:25 08/28/18 20:25 08/29/18 05:00 Glucose (Fingerstick) 158 mg/dL (70-99) 161 mg/dL (70-99) 144 mg/dL (70-99) Sodium Level 139 mmol/L (136-145) Potassium Level 3.9 mmol/L (3.5-5.1) Chloride Level 101 mmol/L (98-107) Carbon Dioxide Level 28 mmol/L (21-32) Anion Gap 10 (6-14) Blood Urea Nitrogen 27 mg/dL (7-20) Creatinine 2.6 mg/dL (0.6-1.0) Estimated GFR (Cockcroft-Gault) 19.3 Glucose Level 160 mg/dL (70-99) Calcium Level 8.6 mg/dL (8.5-10.1) Phosphorus Level 2.2 mg/dL (2.6-4.7) Albumin 1.7 g/dL (3.4-5.0) Test 08/29/18 07:32 Glucose (Fingerstick) 119 mg/dL (70-99) Comment Review of Relevant I have reviewed the following items bert (where applicable) has been applied. Labs Laboratory Tests Test 08/27/18 12:18 08/27/18 15:32 08/27/18 20:03 08/28/18 04:15 Glucose (Fingerstick) 158 mg/dL (70-99) 154 mg/dL (70-99) 274 mg/dL (70-99) Sodium Level 134 mmol/L (136-145) Potassium Level 4.4 mmol/L (3.5-5.1) Chloride Level 97 mmol/L (98-107) Carbon Dioxide Level 27 mmol/L (21-32) Anion Gap 10 (6-14) Blood Urea Nitrogen 41 mg/dL (7-20) Creatinine 3.6 mg/dL (0.6-1.0) Estimated GFR (Cockcroft-Gault) 13.3 Glucose Level 288 mg/dL (70-99) Calcium Level 8.2 mg/dL (8.5-10.1) Phosphorus Level 3.3 mg/dL (2.6-4.7) Albumin 1.6 g/dL (3.4-5.0) Test 08/28/18 07:51 08/28/18 15:41 08/28/18 17:25 08/28/18 20:25 Glucose (Fingerstick) 250 mg/dL (70-99) 158 mg/dL (70-99) 161 mg/dL (70-99) 144 mg/dL (70-99) Test 08/29/18 05:00 08/29/18 07:32 Sodium Level 139 mmol/L (136-145) Potassium Level 3.9 mmol/L (3.5-5.1) Chloride Level 101 mmol/L (98-107) Carbon Dioxide Level 28 mmol/L (21-32) Anion Gap 10 (6-14) Blood Urea Nitrogen 27 mg/dL (7-20) Creatinine 2.6 mg/dL (0.6-1.0) Estimated GFR (Cockcroft-Gault) 19.3 Glucose Level 160 mg/dL (70-99) Calcium Level 8.6 mg/dL (8.5-10.1) Phosphorus Level 2.2 mg/dL (2.6-4.7) Albumin 1.7 g/dL (3.4-5.0) Glucose (Fingerstick) 119 mg/dL (70-99) Laboratory Tests Test 08/28/18 15:41 08/28/18 17:25 08/28/18 20:25 08/29/18 05:00 Glucose (Fingerstick) 158 mg/dL (70-99) 161 mg/dL (70-99) 144 mg/dL (70-99) Sodium Level 139 mmol/L (136-145) Potassium Level 3.9 mmol/L (3.5-5.1) Chloride Level 101 mmol/L (98-107) Carbon Dioxide Level 28 mmol/L (21-32) Anion Gap 10 (6-14) Blood Urea Nitrogen 27 mg/dL (7-20) Creatinine 2.6 mg/dL (0.6-1.0) Estimated GFR (Cockcroft-Gault) 19.3 Glucose Level 160 mg/dL (70-99) Calcium Level 8.6 mg/dL (8.5-10.1) Phosphorus Level 2.2 mg/dL (2.6-4.7) Albumin 1.7 g/dL (3.4-5.0) Test 08/29/18 07:32 Glucose (Fingerstick) 119 mg/dL (70-99) Microbiology 08/21/18 Blood Culture - Final, Complete NO GROWTH AFTER 5 DAYS Medications Current Medications Sodium Chloride 1,000 ml @ 1,000 mls/hr 1X ONCE IV Last administered on 08/20/18at 04:28; Start 08/20/18 at 03:00; Stop 08/20/18 at 03:59; Status DC Cefepime HCl (Maxipime) 2 gm 1X ONCE IVP Last administered on 08/20/18at 04:28; Start 08/20/18 at 03:00; Stop 08/20/18 at 03:01; Status DC Ondansetron HCl (Zofran) 4 mg PRN Q8HRS PRN IV NAUSEA/VOMITING 1ST CHOICE Last administered on 08/20/18at 07:27; Start 08/20/18 at 05:00; Stop 08/21/18 at 04:59; Status DC Insulin Human Lispro (HumaLOG) 0-5 UNITS TIDWMEALS SQ Last administered on 08/25/18 12:41; Start 08/20/18 at 08:00 Dextrose (Dextrose 50%-Water Syringe) 12.5 gm PRN Q15MIN PRN IV SEE COMMENTS Last administered on 08/26/18 08:26; Start 08/20/18 at 05:00 Acetaminophen (Tylenol) 650 mg PRN Q6HRS PRN PO MILD PAIN / TEMP; Start 08/20/18 at 09:30 Amiodarone HCl (Cordarone) 200 mg DAILY PO Last administered on 08/29/18 08:26; Start 08/20/18 at 10:00 Aspirin (Children'S Aspirin) 81 mg DAILY PO Last administered on 08/29/18 08:26; Start 08/20/18 at 10:00 Carbamazepine (TEGretol) 200 mg BID PO Last administered on 08/29/18 08:26; Start 08/20/18 at 10:00 Carvedilol (Coreg) 12.5 mg BIDWMEALS PO Last administered on 08/28/18 17:26; Start 08/20/18 at 10:00 Docusate Sodium (Colace) 100 mg PRN Q8HRS PRN PO CONSTIPATION; Start 08/20/18 at 09:30 Famotidine (Pepcid) 20 mg HS PO Last administered on 08/28/18 20:02; Start 08/20/18 at 21:00 Guaifenesin (Mucinex) 600 mg BID PO Last administered on 08/29/18 08:26; Start 08/20/18 at 10:00 Insulin Glargine (Lantus) 15 units QHS SQ Last administered on 08/27/18 21:24; Start 08/20/18 at 21:00 Insulin Human Lispro (HumaLOG) 5 units TIDWMEALS SQ Last administered on 08/28/18 17:35; Start 08/20/18 at 12:00 Insulin Human Lispro (HumaLOG VIAL) 5 unit TIDWMEALS SQ ; Start 08/20/18 at 12:00; Status UNV Albuterol/ Ipratropium (Duoneb) 3 ml Q4HRS NEB Last administered on 08/29/18 09:49; Start 08/20/18 at 12:00 Albuterol Sulfate (Ventolin Neb Soln) 2.5 mg PRN Q4HRS PRN NEB SHORTNESS OF B REATH; Start 08/20/18 at 09:45 Morphine Sulfate (Ms Contin) 30 mg BID PO Last administered on 08/29/18 08:27; Start 08/20/18 at 10:00 Nystatin (Nystop) 1 susanna BID TP Last administered on 08/29/18 08:25; Start 08/20/18 at 10:00 Oxycodone/ Acetaminophen (Percocet 10/325) 1 tab PRN Q4HRS PRN PO MODERATE - SEVERE PAIN Last administered on 08/28/18 22:03; Start 08/20/18 at 12:00 Prochlorperazine Maleate (Compazine) 10 mg PRN Q6HRS PRN PO NAUSEA/VOMITING,2ND CHOICE; Start 08/20/18 at 09:30 Sevelamer Carbonate (Renvela) 1,600 mg TIDWMEALS PO Last administered on 08/29/18 08:25; Start 08/20/18 at 12:00 Ticagrelor (Brilinta) 90 mg BID PO Last administered on 08/29/18 08:25; Start 08/20/18 at 10:00 Atorvastatin Calcium (Lipitor) 80 mg QHS PO Last administered on 08/28/18 20:02; Start 08/20/18 at 21:00 Calcitriol (Rocaltrol) 0.25 mcg DAILY PO Last administered on 08/29/18 08:25; Start 08/20/18 at 10:00 Diltiazem HCl (Cardizem 24hr Cd) 120 mg DAILY PO Last administered on 08/28/18 16:00; Start 08/20/18 at 10:00 Erythromycin (E-Mycin) 250 mg BID PO Last administered on 08/29/18 08:25; Start 08/20/18 at 10:00 Hydralazine HCl (Apresoline) 10 mg PRN TID PRN PO ELEVATED BP; Start 08/20/18 at 14:00 Lidocaine (Lidoderm) 1 patch DAILY TD Last administered on 08/24/18 12:51; Start 08/20/18 at 10:00 Non-Formulary Medication (Melatonin ) 9 mg QHS PO ; Start 08/20/18 at 21:00; Status UNV Niacin (Slo-Niacin) 250 mg BID PO Last administered on 08/29/18 08:25; Start 08/20/18 at 10:00 Ondansetron HCl (Zofran Odt) 4 mg PRN Q6HRS PRN PO NAUSEA/VOMITING, 1ST CHOICE; Start 08/20/18 at 09:45 Polyethylene Glycol (miraLAX PACKET) 17 gm PRN Q8HRS PRN PO CONSTIPATION; Start 08/20/18 at 09:42; Stop 08/20/18 at 12:24; Status DC Sodium Chloride (Lafferty Saline Nasal) 1 susanna PRN BID PRN NS NASAL CONGESTION; Start 08/20/18 at 10:00 Hydromorphone HCl (Dilaudid) 1 mg PRN Q4HRS PRN IVP SEVERE PAIN Last administered on 08/29/18at 00:23; Start 08/20/18 at 09:30 Miscellaneous (Lidoderm Patch Removal) 1 ea QHS MC Last administered on 08/27/18at 21:00; Start 08/20/18 at 21:00 Darbepoetin Mauricio (Aranesp) 60 mcg Fr SQ Last administered on 08/27/18 21:19; Start 08/20/18 at 21:00 Polyethylene Glycol (miraLAX PACKET) 17 gm BID PO Last administered on 08/27/18at 21:00; Start 08/20/18 at 21:00 Lubiprostone (Amitiza) 24 mcg BIDWMEALS PO Last administered on 08/29/18at 08:25; Start 08/20/18 at 17:00 Sodium Chloride 1,000 ml @ 1,000 mls/hr Q1H PRN IV hypotension; Start 08/21/18 at 09:50; Stop 08/21/18 at 15:49; Status DC Info (PHARMACY MONITORING -- do not chart) 1 each PRN DAILY PRN MC SEE COMMENTS; Start 08/21/18 at 10:00; Status UNV Info (PHARMACY MONITORING -- do not chart) 1 each PRN DAILY PRN MC SEE COMMENTS; Start 08/21/18 at 10:00; Stop 08/28/18 at 15:09; Status DC Vancomycin HCl 500 mg/Sodium Chloride 100 ml @ 100 mls/hr 1X ONCE IV ; Start 08/21/18 at 12:00; Stop 08/21/18 at 12:59; Status UNV Vancomycin HCl 1.5 gm/Sodium Chloride 500 ml @ 250 mls/hr 1X ONCE IV Last administered on 08/21/18at 12:55; Start 08/21/18 at 10:15; Stop 08/21/18 at 12:14; Status DC Vancomycin HCl (Vanco Per Pharmacy) 1 each PRN DAILY PRN MC SEE COMMENTS Last administered on 08/28/18at 15:13; Start 08/22/18 at 11:15 Vancomycin HCl 500 mg/Sodium Chloride 100 ml @ 100 mls/hr TuThSa@1600 IV Last administered on 08/28/18at 16:03; Start 08/24/18 at 16:00 Vancomycin HCl (Vancomycin Random Level) 1 each 1X ONCE MC Last administered on 08/24/18at 05:00; Start 08/24/18 at 05:00; Stop 08/24/18 at 05:01; Status DC Glucose (Insta-Glucose) 15 gm STK-MED ONCE .ROUTE ; Start 08/23/18 at 07:42; Stop 08/23/18 at 07:43; Status DC Dextrose/Sodium Chloride 1,000 ml @ 75 mls/hr [id number] IV Last administered on 08/28/18at 08:45; Start 08/23/18 at 08:45; Stop 08/28/18 at 11:18; Status DC Glucose (Insta-Glucose) 15 gm PRN Q15MIN PRN PO LOW BLOOD SUGAR; Start 08/23/18 at 09:15 Lactobacillus Rhamnosus (Culturelle) 1 cap BID PO Last administered on 08/29/18at 08:26; Start 08/23/18 at 21:00 Sodium Chloride 1,000 ml @ 1,000 mls/hr Q1H PRN IV hypotension; Start 08/24/18 at 07:28; Stop 08/24/18 at 13:27; Status DC Albumin Human 200 ml @ 200 mls/hr 1X PRN PRN IV Hypotension; Start 08/24/18 at 07:30; Stop 08/24/18 at 13:29; Status DC Acetaminophen (Tylenol) 500 mg 1X PRN PRN PO MILD PAIN / TEMP; Start 08/24/18 at 07:30; Stop 08/25/18 at 07:29; Status DC Diphenhydramine HCl (Benadryl) 25 mg 1X PRN PRN IV ITCHING; Start 08/24/18 at 07:30; Stop 08/25/18 at 07:29; Status DC Diphenhydramine HCl (Benadryl) 25 mg 1X PRN PRN IV ITCHING; Start 08/24/18 at 07:30; Stop 08/25/18 at 07:29; Status DC Sodium Chloride 1,000 ml @ 400 mls/hr Q2H30M PRN IV PATENCY; Start 08/24/18 at 07:28; Stop 08/24/18 at 19:27; Status DC Info (PHARMACY MONITORING -- do not chart) 1 each PRN DAILY PRN MC SEE COMMENTS; Start 08/24/18 at 07:30; Status UNV Cefepime HCl (Maxipime) 1 gm Q24H IVP Last administered on 08/28/18at 15:47; Start 08/24/18 at 14:30 Sodium Hypochlorite (Dakin'S 04/30 Strength) 1 susanna QODAY TP Last administered on 08/25/18at 15:30; Start 08/25/18 at 15:30 Sodium Chloride 1,000 ml @ 1,000 mls/hr Q1H PRN IV hypotension; Start 08/26/18 at 10:44; Stop 08/26/18 at 16:43; Status DC Diphenhydramine HCl (Benadryl) 25 mg 1X PRN PRN IV ITCHING; Start 08/26/18 at 10:45; Stop 08/27/18 at 10:44; Status DC Diphenhydramine HCl (Benadryl) 25 mg 1X PRN PRN IV ITCHING; Start 08/26/18 at 10:45; Stop 08/27/18 at 10:44; Status DC Sodium Chloride 1,000 ml @ 400 mls/hr Q2H30M PRN IV PATENCY; Start 08/26/18 at 10:44; Stop 08/26/18 at 22:43; Status DC Info (PHARMACY MONITORING -- do not chart) 1 each PRN DAILY PRN MC SEE COMMENTS; Start 08/26/18 at 10:45; Status UNV Propofol 20 ml @ As Directed STK-MED ONCE IV ; Start 08/27/18 at 11:15; Stop 08/27/18 at 11:16; Status DC Lidocaine HCl (Lidocaine Pf 2% Vial) 5 ml STK-MED ONCE .ROUTE ; Start 08/27/18 at 11:15; Stop 08/27/18 at 11:16; Status DC Fentanyl Citrate (Fentanyl 2ml Vial) 100 mcg STK-MED ONCE .ROUTE ; Start 08/27/18 at 11:15; Stop 08/27/18 at 11:16; Status DC Ondansetron HCl (Zofran) 4 mg STK-MED ONCE .ROUTE ; Start 08/27/18 at 11:15; Stop 08/27/18 at 11:16; Status DC Ephedrine Sulfate (ePHEDrine PF IN SALINE SYRINGE) 50 mg STK-MED ONCE IV ; Start 08/27/18 at 11:28; Stop 08/27/18 at 11:29; Status DC Dexamethasone Sodium Phosphate (Decadron) 4 mg STK-MED ONCE .ROUTE ; Start 08/27/18 at 11:47; Stop 08/27/18 at 11:48; Status DC Sodium Chloride (Normal Saline Flush) 3 ml QSHIFT PRN IV AFTER MEDS AND BLOOD DRAWS; Start 08/27/18 at 12:45 Morphine Sulfate (Morphine Sulfate) 2 mg PRN Q2HR PRN IV MODERATE PAIN Last administered on 08/28/18at 14:10; Start 08/27/18 at 14:00; Stop 08/28/18 at 14:52; Status DC Sodium Chloride 1,000 ml @ 1,000 mls/hr Q1H PRN IV hypotension; Start 08/28/18 at 09:20; Stop 08/28/18 at 15:19; Status DC Albumin Human 200 ml @ 200 mls/hr 1X PRN PRN IV Hypotension; Start 08/28/18 at 09:30; Stop 08/28/18 at 15:29; Status DC Sodium Chloride (Normal Saline Flush) 10 ml 1X PRN PRN IV AP catheter pack; Start 08/28/18 at 09:30; Stop 08/29/18 at 09:29; Status DC Sodium Chloride (Normal Saline Flush) 10 ml 1X PRN PRN IV SILVER CLEANER catheter pack; Start 08/28/18 at 09:30; Stop 08/29/18 at 09:29; Status DC Sodium Chloride 1,000 ml @ 400 mls/hr Q2H30M PRN IV PATENCY; Start 08/28/18 at 09:20; Stop 08/28/18 at 21:19; Status DC Info (PHARMACY MONITORING -- do not chart) 1 each PRN DAILY PRN MC SEE COMMENTS; Start 08/28/18 at 09:30; Status UNV Info (PHARMACY MONITORING -- do not chart) 1 each PRN DAILY PRN MC SEE COMMENTS; Start 08/28/18 at 09:30 Morphine Sulfate (Morphine Sulfate) 4 mg PRN Q2HR PRN IV MODERATE PAIN Last administered on 08/29/18at 10:59; Start 08/28/18 at 15:00 Gabapentin (Neurontin) 100 mg TID PO Last administered on 08/29/18at 08:26; Start 08/28/18 at 15:00 Active Scripts Active Nystop (Nystatin) 60 Gm Powder 1 Susanna TP BID MDD 1 Morphine Sulfate Er (Morphine Sulfate) 30 Mg Tablet.er 1 Tab PO BID MDD 1 Tramadol Hcl 50 Mg Tablet 50 Mg PO Q4HRS PRN MDD 1 Brilinta (Ticagrelor) 90 Mg Tablet 90 Mg PO BID 30 Days Reported Zofran (Ondansetron Hcl) 4 Mg Tablet 1 Tab PO Q6HRS Lidocaine 1 Each Adh..patch 1 Each TP DAILY Duoneb 0.5-3(2.5) Mg/3 Ml (Albuterol/Ipratropium) 3 Ml Ampul.neb 3 Ml NEB Q4HRS Uriel-Tab (Erythromycin Base) 250 Mg Tablet.dr 250 Mg PO BID Diltiazem 24HR Cd (Diltiazem Hcl) 120 Mg Cap.er.24h 1 Cap PO DAILY Carvedilol (Carvedilol) 12.5 Mg Tablet 12.5 Mg PO BIDWMEALS Tylenol (Acetaminophen) 325 Mg Tablet 2 Tab PO PRN Q6HRS Oxycodone-Acetaminophen 10-325 (Oxycodone Hcl/Acetaminophen) 1 Each Tablet 1 Tab PO Q4HRS Renvela (Sevelamer Carbonate) 800 Mg Tablet 2 Tab PO TID Melatonin 3 Mg Tablet 9 Mg PO QHS Lantus Solostar (Insulin Glargine,Hum.rec.anlog) 100 Unit/1 Ml Insuln.pen 15 Unit SQ QHS Duoneb 0.5-3(2.5) Mg/3 Ml (Albuterol/Ipratropium) 3 Ml Ampul.neb 3 Ml NEB QID PRN Humalog (Insulin Lispro) 100 Unit/1 Ml Vial 0 SQ TID Humalog (Insulin Lispro) 100 Unit/1 Ml Vial 5 Unit SQ TIDWMEALS Guaifenesin 600 Mg Tablet.er 600 Mg PO BID Lafferty Saline (Sodium Chloride) 50 Ml Alston 1 Alston NS BID PRN Acetaminophen 500 Mg Tablet 650 Mg PO Q6HRS PRN Aspirin 81 Mg Tab.chew 1 Tab PO DAILY Calcitriol 0.25 Mcg Capsule 1 Cap PO DAILY Pepcid (Famotidine) 20 Mg Tablet 20 Mg PO HS Niacin 250 Mg Tablet 250 Mg PO BID Miralax (Polyethylene Glycol 3350) 17 Gm Powd.pack 1 Packet PO Q 8HRS PRN Hydralazine Hcl 10 Mg Tablet 1 Tab PO PRN TID PRN Ferrous Sulfate 325 Mg Tablet 1 Tab PO DAILY Diphenhydramine Hcl 50 Mg Capsule 1 Cap PO PRN Q8HRS PRN Prochlorperazine Maleate 10 Mg Tablet 1 Tab PO PRN Q6HRS PRN Tegretol (Carbamazepine) 200 Mg Tablet 1 Tab PO BID Amiodarone Hcl 200 Mg Tablet 1 Tab PO DAILY Lipitor (Atorvastatin Calcium) 80 Mg Tablet 80 Mg PO HS Docusate Sodium 100 Mg Capsule 1 Cap PO Q8HRS PRN Vitals/I & O Vital Sign - Last 24 Hours 08/28/18 08/28/18 08/28/18 08/28/18 14:10 16:00 16:01 16:24 Pulse 82 82 Resp 17 B/P (MAP) 123/61 123/61 O2 Delivery Room Air Room Air 08/28/18 08/28/18 08/28/18 08/28/18 17:26 19:20 20:00 20:01 Temp 98.6 98.6 Pulse 82 92 Resp 18 B/P (MAP) 123/61 92/46 (61) Pulse Ox 96 O2 Delivery Room Air Room Air Room Air 08/28/18 08/28/18 08/28/18 08/28/18 20:02 22:03 22:05 23:08 O2 Delivery Room Air Room Air Room Air Room Air 08/28/18 08/29/18 08/29/18 08/29/18 23:20 00:23 00:54 00:54 Temp 98.0 98.0 Pulse 97 Resp 18 B/P (MAP) 142/61 (88) Pulse Ox 97 O2 Delivery Room Air Room Air Room Air Room Air 08/29/18 08/29/18 08/29/18 08/29/18 03:20 04:07 07:00 08:00 Temp 98.6 97.8 98.6 97.8 Pulse 102 89 Resp 18 16 B/P (MAP) 107/60 (76) 103/56 (72) Pulse Ox 96 98 O2 Delivery Room Air Room Air Room Air Room Air O2 Flow Rate 8.0 08/29/18 08/29/18 08/29/18 08/29/18 08:26 08:27 08:27 08:57 Pulse 89 Resp 16 16 16 B/P (MAP) 103/56 O2 Delivery Room Air Room Air Room Air 08/29/18 08/29/18 09:49 10:59 Resp 17 O2 Delivery Room Air Room Air Intake and Output 08/28/18 08/28/18 08/29/18 15:00 23:00 07:00 Intake Total 180 ml 500 ml 650 ml Balance 180 ml 500 ml 650 ml Nutrition Consultation Dietary Evaluation: Recommendations by RD: Increase Calorie Intake, Protein supplementation Comments: continue to encourage po intake nepro and ifeoma for wounds Expected Outcomes/Goals: to meet > 50% est nutr needs via po intake, - met at times, goal ongoing Interpretation of weight loss: >10% in 6 months Malnutrition Findings: Body Fat Depletion (Non Severe: Mild Depletion Weight Status: Underweight ROMI GOSS MD August 29, 2018 11:08
--- NOTE | 2018-08-29 12:16 | PDOC ---
Renal-Progress Notes Subjective Notes Notes TIRED History of Present Illness Hx of present illness STABLE Vitals Vitals Vital Signs Date Time Temp Pulse Resp B/P (MAP) Pulse Ox O2 Delivery O2 Flow Rate FiO2 08/29/18 11:00 98.2 93 16 89/41 (57) 99 Room Air 98.2 08/29/18 08:00 8.0 Weight Weight [ ] I.O. Intake and Output Intake and Output 08/29/18 07:00 Intake Total 1330 ml Balance 1330 ml Intake Oral 1330 ml Labs Labs Laboratory Tests Test 08/28/18 15:41 08/28/18 17:25 08/28/18 20:25 08/29/18 05:00 Glucose (Fingerstick) 158 mg/dL (70-99) 161 mg/dL (70-99) 144 mg/dL (70-99) Sodium Level 139 mmol/L (136-145) Potassium Level 3.9 mmol/L (3.5-5.1) Chloride Level 101 mmol/L (98-107) Carbon Dioxide Level 28 mmol/L (21-32) Anion Gap 10 (6-14) Blood Urea Nitrogen 27 mg/dL (7-20) Creatinine 2.6 mg/dL (0.6-1.0) Estimated GFR (Cockcroft-Gault) 19.3 Glucose Level 160 mg/dL (70-99) Calcium Level 8.6 mg/dL (8.5-10.1) Phosphorus Level 2.2 mg/dL (2.6-4.7) Albumin 1.7 g/dL (3.4-5.0) Test 08/29/18 07:32 08/29/18 11:53 Glucose (Fingerstick) 119 mg/dL (70-99) 181 mg/dL (70-99) Micro Micro Microbiology 08/21/18 Blood Culture - Final, Complete NO GROWTH AFTER 5 DAYS Review of Systems Constitutional: yes: alert, oriented Ears/Nose/Throat: Yes: no symptom reported Eyes: Yes: no symptom reported Pulmonary: Yes cough dry Gastrointestional: Yes: constipation Genitourinary: Yes: other (ANURIA) Musculoskeletal: Yes: foot pain, muscle pain, muscle stiffness Skin: Yes color change Psychiatric/Neurological: Yes: depressed Endocrine: Yes: no symptom reported Physical Exam General Appearance: no apparent distress Skin: warm Respiratory: bilateral CTA Heart: S1S2 Abdomen: soft Genitourinary: bladder flat Extremities: pulses present Neurology: alert Musculoskeletal: Osteoarthritis Assessment Assessment IMP RECTAL BLEEDING-STABLE ANEMIA DM II HTN DECONDITIONING CHRONIC CONSTIPATION LEUCOCYTOSIS PLAN ARANESP HD TTS WOUND CARE CHARLY ZAVALA MD August 29, 2018 12:16
[2018-08-29] MEDS: CEFEPIME HCL IV Push 1 GM VIAL. IVP SCH (14:31)
[2018-08-29 15:00] VITALS: BP 104/44
[2018-08-29] MEDS: VANCOMYCIN PER PHARMACY MC PRN (16:41)
[2018-08-29] MEDS ORDERED: MORPHINE SULFATE 20 MG/ML CONC SOLUTION. SL PRN (17:30)
[2018-08-29] MEDS ORDERED: LORazepam INTENSOL 2 MG/ML ORAL.CONC SL PRN (17:30)
[2018-08-29 19:20] VITALS: BP 112/52
[2018-08-29] MEDS: ATORVASTATIN CALCIUM 40 MG TABLET. PO SCH (21:00)
[2018-08-29] MEDS: PATCH REMOVAL. MC SCH (21:00)
[2018-08-29] MEDS: FAMOTIDINE 20 MG TABLET. PO SCH (21:00)
[2018-08-29] MEDS: INSULIN GLARGINE 300 UNITS/3 ML INSULN.PEN. SQ SCH (21:00)
[2018-08-29 23:59] VITALS: BP 107/54
[2018-08-30 03:56] VITALS: BP 108/56
[2018-08-30 05:32] LABS: ALBUMIN 1.8 g/dL (3.4-5.0); CALCIUM 8.6 mg/dL (8.5-10.1); CREATININE 3.2 mg/dL (0.6-1.0); GFR 15.2; PHOSPHORUS 2.4 mg/dL (2.6-4.7); POTASSIUM 4.3 mmol/L (3.5-5.1)
[2018-08-30] MEDS: IPRATRPIUM/ALBUTEROL 0.5/2.5MG 3 ML NEBU. NEB SCH (05:44)
[2018-08-30 07:20] VITALS: BP 113/64
[2018-08-30] MEDS: LUBIPROSTONE 8 MCG CAPSULE PO SCH (08:00)
[2018-08-30] MEDS: SEVELAMER CARBONATE 800 MG TABLET. PO SCH ×2 (08:00→12:00)
[2018-08-30] MEDS: CARVEDILOL 12.5 MG TABLET. PO SCH (08:00)
[2018-08-30] MEDS: INSULIN LISPRO 300 UNITS/3 ML INSULN.PEN. SQ SCH ×4 (08:00→12:00)
--- NOTE | 2018-08-30 08:25 | SNU/HH DC ---
DISCHARGE ORDERS DISCHARGE INFORMATION: DISCHARGE DATE: August 30, 2018 CONDITION ON DISCHARGE: Guarded CODE STATUS: Code Status: DNR/DNI DETENTION: SNF STAY <30 DAYS: Yes HOSPICE: HOSPICE: Yes HOSPICE EVAL & TREAT: Yes LTAC: ADMIT TO LTAC: No POST DISCHARGE ORDERS: ACTIVITY ORDERS: Resume previous activity WEIGHT BEARING STATUS: Non weight bearing BATHING ORDERS: Shower-keep dressing dry DIET AFTER DISCHARGE: Regular WOUND/INCISION CARE: Other, see below FOLLOW-UP: PHYSICIAN FOLLOW-UP: hospice TREATMENT/EQUIPMENT ORDERS: ADAPTIVE EQUIPMENT NEEDED: None, Front wheeled walker, Raised toilet seat Physical Therapy For: Evalulation/Treatment Occupational Therapy For: Evaluation/Treatment DISCHARGE MEDICATIONS: Home Meds Active Scripts Nystatin (NYSTOP) 60 Gm Powder, 1 IRMA TP BID for moist areas MDD 1, #1 MISC Prov:DAVID PINTO MD 06/22/18 Morphine Sulfate (MORPHINE SULFATE ER) 30 Mg Tablet.er, 1 TAB PO BID for Pain MDD 1, #30 TAB Prov:DAVID PINTO MD 06/22/18 Tramadol Hcl (TRAMADOL HCL) 50 Mg Tablet, 50 MG PO Q4HRS PRN for HEADACHE MDD 1, #30 TAB Prov:DAVID PINTO MD 06/22/18 Ticagrelor (BRILINTA) 90 Mg Tablet, 90 MG PO BID for 30 Days, #60 TAB Prov:DAVID PINTO MD 02/08/17 Reported Medications Ondansetron Hcl (ZOFRAN) 4 Mg Tablet, 1 TAB PO Q6HRS for nausea/vomiting, #20 TAB 08/20/18 Lidocaine (Lidocaine) 1 Each Adh..patch, 1 EACH TP DAILY for pain, PATCH 08/20/18 Ipratropium/Albuterol Sulfate (DUONEB 0.5-3(2.5) MG/3 ML) 3 Ml Ampul.neb, 3 ML NEB Q4HRS for SOA, EACH 08/20/18 Erythromycin Base (EMILIA-TAB) 250 Mg Tablet.dr, 250 MG PO BID for gastroparesis, TAB.SR 08/20/18 Diltiazem Hcl (DILTIAZEM 24HR CD) 120 Mg Cap.er.24h, 1 CAP PO DAILY for essential HTN, #90 CAP 1 Refill 08/20/18 Carvedilol (CARVEDILOL ) 12.5 Mg Tablet, 12.5 MG PO BIDWMEALS for CARDIAC, TAB 08/20/18 Acetaminophen (TYLENOL) 325 Mg Tablet, 2 TAB PO PRN Q6HRS for pain, #30 TAB 08/20/18 Oxycodone Hcl/Acetaminophen (OXYCODONE-ACETAMINOPHEN 10-325) 1 Each Tablet, 1 TAB PO Q4HRS for PAIN, #180 TAB 3/06/15 Sevelamer Carbonate (RENVELA) 800 Mg Tablet, 2 TAB PO TID for ESRD, #540 TAB 3 Refills 06/16/18 Melatonin (MELATONIN) 3 Mg Tablet, 9 MG PO QHS for Insomnia, TAB 06/16/18 Insulin Glargine,Hum.rec.anlog (LANTUS SOLOSTAR) 100 Unit/1 Ml Insuln.pen, 15 UNIT SQ QHS, #15 ML 3 Refills 06/16/18 Ipratropium/Albuterol Sulfate (DUONEB 0.5-3(2.5) MG/3 ML) 3 Ml Ampul.neb, 3 ML NEB QID PRN for shortness of breath, EACH 06/16/18 Insulin Lispro (HUMALOG) 100 Unit/1 Ml Vial, 0 SQ TID for Diabetes, VIAL 06/16/18 Insulin Lispro (HUMALOG) 100 Unit/1 Ml Vial, 5 UNIT SQ TIDWMEALS, VIAL 06/16/18 Guaifenesin (GUAIFENESIN) 600 Mg Tablet.er, 600 MG PO BID for Cough, TAB.SR 06/16/18 Sodium Chloride (AYR SALINE) 50 Ml [place], 1 SPRAY NS BID PRN for Congestion, #50 ML 1 Refill 06/16/18 Acetaminophen (ACETAMINOPHEN) 500 Mg Tablet, 650 MG PO Q6HRS PRN for PAIN, TAB 06/16/18 Aspirin (ASPIRIN) 81 Mg Tab.chew, 1 TAB PO DAILY for HELP HEART, #30 TAB 3 Refills 03/09/18 Calcitriol (CALCITRIOL) 0.25 Mcg Capsule, 1 CAP PO DAILY for CALCUIM SUPPLEMENT, #30 CAP 5 Refills 03/09/18 Famotidine (PEPCID) 20 Mg Tablet, 20 MG PO HS for GERD, TAB 03/09/18 Niacin (NIACIN) 250 Mg Tablet, 250 MG PO BID for supplement, TAB.SR 03/09/18 Polyethylene Glycol 3350 (MIRALAX) 17 Gm Powd.pack, 1 PACKET PO Q 8HRS PRN for CONSTIPATION, #30 PACKET 3 Refills 03/09/18 Hydralazine Hcl (HYDRALAZINE HCL) 10 Mg Tablet, 1 TAB PO PRN TID PRN for HYPERTENSION, SEE COMMENTS, #60 TAB 3 Refills 03/09/18 Ferrous Sulfate (FERROUS SULFATE) 325 Mg Tablet, 1 TAB PO DAILY for IRON SUPPLEMENT, #30 TAB 3 Refills 03/09/18 Diphenhydramine Hcl (DIPHENHYDRAMINE HCL) 50 Mg Capsule, 1 CAP PO PRN Q8HRS PRN for ITCHING, #30 CAP 1 Refill 03/09/18 Prochlorperazine Maleate (PROCHLORPERAZINE MALEATE) 10 Mg Tablet, 1 TAB PO PRN Q6HRS PRN for NAUSEA/VOMITING, #30 TAB 3 Refills 03/09/18 Carbamazepine (TEGRETOL) 200 Mg Tablet, 1 TAB PO BID, #60 TAB 1 Refill 12/21/17 Amiodarone Hcl (AMIODARONE HCL) 200 Mg Tablet, 1 TAB PO DAILY, #90 TAB 1 Refill 06/08/17 Atorvastatin Calcium (LIPITOR) 80 Mg Tablet, 80 MG PO HS for FOR CHOLESTEROL, #30 TAB 0 Refills 12/06/14 Docusate Sodium (DOCUSATE SODIUM) 100 Mg Capsule, 1 CAP PO Q8HRS PRN for CONSTIPATION, #30 CAP 12/05/14 DAVID PINTO MD August 30, 2018 08:25
[2018-08-30] MEDS: LACTOBACILLUS RHAMNOSUS GG 1 CAPSULE. PO SCH (09:00)
[2018-08-30] MEDS: NIACIN ER 250 MG TABLET.ER PO SCH (09:00)
[2018-08-30] MEDS: carBAMazepine 200 MG TABLET PO SCH (09:00)
[2018-08-30] MEDS: TICAGRELOR 90 MG TABLET. PO SCH (09:00)
[2018-08-30] MEDS: ASPIRIN CHEWABLE 81 MG TABLET. PO SCH (09:00)
[2018-08-30] MEDS: CALCITRIOL 0.25 MCG CAPSULE. PO SCH (09:00)
[2018-08-30] MEDS: POLYETHYLENE GLYCOL 3350 17 GM PACKET. PO SCH (09:00)
[2018-08-30] MEDS: GABAPENTIN 100 MG CAPSULE. PO SCH (09:00)
[2018-08-30] MEDS: LIDOCAINE (700MG/PATCH) PATCH. TD SCH (09:00)
[2018-08-30] MEDS: AMIODARONE HCL 200 MG TABLET. PO SCH (09:00)
--- NOTE | 2018-08-30 09:36 | PDOC ---
Infectious Disease Note Subjective Subjective Comfortable, denies pain/SOA/N/V/D Not very hungry No fevers ROS ROS per HPI Vital Sign Vital Signs Vital Signs Date Time Temp Pulse Resp B/P (MAP) Pulse Ox O2 Delivery O2 Flow Rate FiO2 08/30/18 07:20 98.3 95 18 113/64 (80) 97 Room Air 98.3 08/29/18 08:00 8.0 Physical Exam PHYSICAL EXAM GENERAL: Resting, arouses easily to name HEENT: Normal conjunctivae. Oral cavity/pharynx dry. NECK: Supple. LUNGS: Clear to auscultation. HEART: S1 and S2. Murmur present. EXTREMITIES: No gross edema or cyanosis. Previous left BKA. SKIN: Warm without rash. She has multiple wounds. 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 BLD CULT RESULT 1 Final Comment Staphylococcus warneri ANTIMICROBIAL SUSCEPTIBILITY Final Comment S = Susceptible; I = Intermediate; R = Resistant P = Positive; N = Negative MICS are expressed in micrograms per mL Antibiotic RSLT#1 RSLT#2 RSLT#3 RSLT#4 Ciprofloxacin R>=8 Clindamycin S<=0.25 Erythromycin R>=8 Gentamicin S<=0.5 Levofloxacin I =4 Oxacillin S<=0.25 Penicillin R>=0.5 Rifampin S<=0.5 Tetracycline S<=1 Trimethoprim/Sulfa S<=10 Vancomycin S<=0.5 08/21. BLOOD CULTURE Final NO GROWTH AFTER 5 DAYS Objective Assessment GPC bacteremia (POA) (2 of 4 bottles) Staph warneri - oxacillin sensitive Leukocytosis Large necrotic right ischial wound s/p debridement down to viable tissue on 08/27. no cultures available Multiple other wounds Multiple abx allergies h/o c. diff Rectal bleeding and constipation - better CKD/HD via AV fistula Diabetes Plan Plan of Care vanc and cefepime Repeat BC from 08/21 neg Monitor WBC/temp Wound care and offloading hospice in the works D/w Dr. Mcbride D/w nursing Patient seen, examined, I agree with above. Assessment and plan was coformulated with LOAN ASSOCIATE. KYLEIGH QUEEN APRN August 30, 2018 09:36 GRACIELA LÓPEZ MD August 30, 2018 12:29
[2018-08-30] MEDS: ERYTHROMYCIN BASE 250 MG TABLET PO SCH (10:39)
[2018-08-30] MEDS: MORPHINE ER 15 MG TABLET.ER PO SCH (10:39)
[2018-08-30] MEDS: NYSTATIN TOPICAL POWDER 15GM BOTTLE. TP SCH (10:42)
--- NOTE | 2018-08-30 11:00 | PDOC ---
Renal-Progress Notes Subjective Notes Notes NOTHING NEW History of Present Illness Hx of present illness SLOW PROGRESSIVE DECLINE OVER LAST YEAR Vitals Vitals Vital Signs Date Time Temp Pulse Resp B/P (MAP) Pulse Ox O2 Delivery O2 Flow Rate FiO2 08/30/18 10:39 97 Room Air 8.0 08/30/18 08:00 95 113/64 08/30/18 07:20 98.3 18 98.3 Weight Weight [ ] I.O. Intake and Output Intake and Output 08/30/18 07:00 Intake Total 250 ml Balance 250 ml Intake Oral 250 ml Labs Labs Laboratory Tests Test 08/29/18 11:53 08/29/18 20:55 08/30/18 04:12 08/30/18 07:36 Glucose (Fingerstick) 181 mg/dL (70-99) 115 mg/dL (70-99) 109 mg/dL (70-99) Sodium Level 139 mmol/L (136-145) Potassium Level 4.3 mmol/L (3.5-5.1) Chloride Level 101 mmol/L (98-107) Carbon Dioxide Level 29 mmol/L (21-32) Anion Gap 9 (6-14) Blood Urea Nitrogen 40 mg/dL (7-20) Creatinine 3.2 mg/dL (0.6-1.0) Estimated GFR (Cockcroft-Gault) 15.2 Glucose Level 105 mg/dL (70-99) Calcium Level 8.6 mg/dL (8.5-10.1) Phosphorus Level 2.4 mg/dL (2.6-4.7) Albumin 1.8 g/dL (3.4-5.0) Micro Micro Microbiology 08/21/18 Blood Culture - Final, Complete NO GROWTH AFTER 5 DAYS Review of Systems Constitutional: yes: alert, oriented Ears/Nose/Throat: Yes: no symptom reported Eyes: Yes: no symptom reported Pulmonary: Yes cough dry Gastrointestional: Yes: constipation Genitourinary: Yes: other (ANURIA) Musculoskeletal: Yes: foot pain, muscle pain, muscle stiffness Skin: Yes color change Psychiatric/Neurological: Yes: depressed Endocrine: Yes: no symptom reported Physical Exam General Appearance: no apparent distress Skin: warm Respiratory: bilateral CTA Heart: S1S2 Abdomen: soft Genitourinary: bladder flat Extremities: pulses present Neurology: alert Musculoskeletal: Osteoarthritis Assessment Assessment IMP RECTAL BLEEDING-STABLE ANEMIA DM II HTN MARONDITIONING CHRONIC CONSTIPATION LEUCOCYTOSIS PLAN ARANESP HD TTS WOUND CARE CHARLY ZAVALA MD August 30, 2018 11:00
--- NOTE | 2018-08-30 11:09 | PDOC3 ---
Discharge Summary Visit Information Date of Admission: Aug 20, 2018 Date of Discharge: August 30, 2018 Admitting Diagnosis Comment: sepsis rectal bleeding opioid induced constipation, recent impaction, DM CAD, ESRD chronic elevated troponin s/p BKA, poorly mobile acute on chronic pain, opioid dependence Guarded prognosis DNR hospice Brief Hospital Course Allergies Allergies Coded Allergies Type Severity Reaction Last Updated Verified Sulfa (Sulfonamide Antibiotics) Allergy Severe Anaphylaxis 03/10/18 Yes meropenem Allergy Intermediate Rash 03/10/18 Yes piperacillin Allergy Intermediate Rash 08/28/18 Yes strawberry Allergy Intermediate 03/10/18 Yes tazobactam Allergy Intermediate 03/10/18 Yes cefazolin Adverse Reaction Intermediate Itching 03/10/18 Yes fentanyl Adverse Reaction Intermediate Nausea and Vomiting 02/05/18 Yes Vital Signs Vital Signs Date Time Temp Pulse Resp B/P (MAP) Pulse Ox O2 Delivery O2 Flow Rate FiO2 08/30/18 10:39 97 Room Air 8.0 08/30/18 08:00 95 113/64 08/30/18 07:20 98.3 18 98.3 Lab Results Laboratory Tests Test 08/28/18 15:41 08/28/18 17:25 08/28/18 20:25 08/29/18 05:00 Glucose (Fingerstick) 158 mg/dL (70-99) 161 mg/dL (70-99) 144 mg/dL (70-99) Sodium Level 139 mmol/L (136-145) Potassium Level 3.9 mmol/L (3.5-5.1) Chloride Level 101 mmol/L (98-107) Carbon Dioxide Level 28 mmol/L (21-32) Anion Gap 10 (6-14) Blood Urea Nitrogen 27 mg/dL (7-20) Creatinine 2.6 mg/dL (0.6-1.0) Estimated GFR (Cockcroft-Gault) 19.3 Glucose Level 160 mg/dL (70-99) Calcium Level 8.6 mg/dL (8.5-10.1) Phosphorus Level 2.2 mg/dL (2.6-4.7) Albumin 1.7 g/dL (3.4-5.0) Test 08/29/18 07:32 08/29/18 11:53 08/29/18 20:55 08/30/18 04:12 Glucose (Fingerstick) 119 mg/dL (70-99) 181 mg/dL (70-99) 115 mg/dL (70-99) Sodium Level 139 mmol/L (136-145) Potassium Level 4.3 mmol/L (3.5-5.1) Chloride Level 101 mmol/L (98-107) Carbon Dioxide Level 29 mmol/L (21-32) Anion Gap 9 (6-14) Blood Urea Nitrogen 40 mg/dL (7-20) Creatinine 3.2 mg/dL (0.6-1.0) Estimated GFR (Cockcroft-Gault) 15.2 Glucose Level 105 mg/dL (70-99) Calcium Level 8.6 mg/dL (8.5-10.1) Phosphorus Level 2.4 mg/dL (2.6-4.7) Albumin 1.8 g/dL (3.4-5.0) Test 08/30/18 07:36 Glucose (Fingerstick) 109 mg/dL (70-99) Laboratory Tests Test 08/29/18 11:53 08/29/18 20:55 08/30/18 04:12 08/30/18 07:36 Glucose (Fingerstick) 181 mg/dL (70-99) 115 mg/dL (70-99) 109 mg/dL (70-99) Sodium Level 139 mmol/L (136-145) Potassium Level 4.3 mmol/L (3.5-5.1) Chloride Level 101 mmol/L (98-107) Carbon Dioxide Level 29 mmol/L (21-32) Anion Gap 9 (6-14) Blood Urea Nitrogen 40 mg/dL (7-20) Creatinine 3.2 mg/dL (0.6-1.0) Estimated GFR (Cockcroft-Gault) 15.2 Glucose Level 105 mg/dL (70-99) Calcium Level 8.6 mg/dL (8.5-10.1) Phosphorus Level 2.4 mg/dL (2.6-4.7) Albumin 1.8 g/dL (3.4-5.0) Brief Hospital Course Ms. Rosenbaum is a 52 old female very well-known to me, she has multiple comorbidities and multiple frequent hospitalizations. She is a left BKA, ESRD on dialysis, anemia of ESRD, cardiac issues CHF. Sepsis issues always needing some wound care, wound VAC, vascular surgery reperfusion etc. on legs. Had some vitreous hemorrhage from long-standing diabetes hence legally blind. Hypertension. In any case she is hospice candidate. This admission she came in for sepsis with some chronic decubitus ulcer etc. Now she has some confusion. She usually is very sharp with her multiple meds, polypharmacy. Appropriately DNR now hospice. Palliative got involved. Patient will now be stopping dialysis, no antibiotics anymore. Palliative discussed with multiple family members quite extensively with a rather follow-up note I have put in hospice past packet, outside DNR form. I did see the patient and examine her on day of discharge, and told her about stopping HD and non comfort meds, She was agreeable Discharge Information Condition at Discharge: Comment (hospice) Disposition/Orders: Other (snu wit hospice) Scheduled Acetaminophen (Tylenol) 325 Mg Tablet, 2 TAB PO PRN Q6HRS for pain, #30 (Reported) Entered as Reported by: SELENE OLIVEIRA on 08/20/18801 Last Action: Continued on 08/20/18920 by ROMI GOSS Amiodarone Hcl (Amiodarone Hcl) 200 Mg Tablet, 1 TAB PO DAILY, #90 Ref 1 (Reported) Entered as Reported by: ADINA STRATTON on 06/08/17 1617 Last Action: Continued on 08/20/18920 by ROMI GOSS Aspirin (Aspirin) 81 Mg Tab.chew, 1 TAB PO DAILY for HELP HEART, #30 Ref 3 (Reported) Entered as Reported by: ROSEY DIOR on 03/09/182017 Last Action: Continued on 08/20/18920 by ROMI GOSS Atorvastatin Calcium (Lipitor) 80 Mg Tablet, 80 MG PO HS for FOR CHOLESTEROL, #30 Ref 0 (Reported) Entered as Reported by: TEQUILA HAM on 12/06/14 0829 Last Action: Converted on 08/20/18920 by ROMI GOSS Calcitriol (Calcitriol) 0.25 Mcg Capsule, 1 CAP PO DAILY for CALCUIM SUPPLEMENT, #30 Ref 5 (Reported) Entered as Reported by: ROSEY DIOR on 03/09/182016 Last Action: Converted on 08/20/18920 by ROMI GOSS Carbamazepine (Tegretol) 200 Mg Tablet, 1 TAB PO BID, #60 Ref 1 (Reported) Entered as Reported by: LASHAE STEWART on 12/21/17 1334 Last Action: Continued on 08/20/18920 by ROMI GOSS Carvedilol (Carvedilol ) 12.5 Mg Tablet, 12.5 MG PO BIDWMEALS for CARDIAC, (Reported) Entered as Reported by: SELENE OLIVEIRA on 08/20/18801 Last Action: Continued on 08/20/18920 by ROMI GOSS Diltiazem Hcl (Diltiazem 24HR Cd) 120 Mg Cap.er.24h, 1 CAP PO DAILY for essential HTN, #90 Ref 1 (Reported) Entered as Reported by: SELENE OLIVEIRA on 08/20/18807 Last Action: Converted on 08/20/18920 by ROMI GOSS Erythromycin Base (Uriel-Tab) 250 Mg Tablet.dr, 250 MG PO BID for gastroparesis, (Reported) Entered as Reported by: SELENE OLIVEIRA on 08/20/18807 Last Action: Converted on 08/20/18920 by ROMI GOSS Famotidine (Pepcid) 20 Mg Tablet, 20 MG PO HS for GERD, (Reported) Entered as Reported by: ROSEY DIOR on 03/09/182015 Last Action: Continued on 08/20/18920 by ROMI GOSS Ferrous Sulfate (Ferrous Sulfate) 325 Mg Tablet, 1 TAB PO DAILY for IRON SUPPLEMENT, #30 Ref 3 (Reported) Entered as Reported by: ROSEY DIOR on 03/09/182002 Last Action: HELD on 08/20/18920 by ROMI GOSS Guaifenesin (Guaifenesin) 600 Mg Tablet.er, 600 MG PO BID for Cough, (Reported) Entered as Reported by: MORE HOWARD on 06/16/182203 Last Action: Continued on 08/20/18920 by ROMI GOSS Insulin Glargine,Hum.rec.anlog (Lantus Solostar) 100 Unit/1 Ml Insuln.pen, 15 UNIT SQ QHS, #15 Ref 3 (Reported) Entered as Reported by: MORE HOWARD on 06/16/182203 Last Action: Continued on 08/20/18920 by ROMI GOSS Insulin Lispro (Humalog) 100 Unit/1 Ml Vial, 5 UNIT SQ TIDWMEALS, (Reported) Entered as Reported by: MORE HOWARD on 06/16/182203 Last Action: Continued on 08/20/18920 by ROMI GOSS Insulin Lispro (Humalog) 100 Unit/1 Ml Vial, 0 SQ TID for Diabetes, (Reported) Entered as Reported by: MORE HOWARD on 06/16/182203 Last Action: Continued on 08/20/18920 by ROMI GOSS Ipratropium/Albuterol Sulfate (Duoneb 0.5-3(2.5) Mg/3 Ml) 3 Ml Ampul.neb, 3 ML NEB Q4HRS for SOA, (Reported) Entered as Reported by: SELENE OLIVEIRA on 08/20/18823 Last Action: Continued on 08/20/18920 by ROMI GOSS Lidocaine (Lidocaine) 1 Each Adh..patch, 1 EACH TP DAILY for pain, (Reported) Entered as Reported by: SELENE OLIVEIRA on 08/20/18823 Last Action: Converted on 08/20/18920 by ROMI GOSS Melatonin (Melatonin) 3 Mg Tablet, 9 MG PO QHS for Insomnia, (Reported) Entered as Reported by: MORE HOWARD on 06/16/182203 Last Action: Converted on 08/20/18920 by ROMI GOSS Morphine Sulfate (Morphine Sulfate Er) 30 Mg Tablet.er, 1 TAB PO BID for Pain MDD 1, #30 Prescribed by: DAVID PINTO on 06/22/18902 Last Action: Continued on 08/20/18920 by ROMI GOSS Niacin (Niacin) 250 Mg Tablet, 250 MG PO BID for supplement, (Reported) Entered as Reported by: ROSEY DIOR on 03/09/182013 Last Action: Converted on 08/20/18920 by ROMI GOSS Nystatin (Nystop) 60 Gm Powder, 1 IRMA TP BID for moist areas MDD 1, #1 Prescribed by: DAVID PINTO on 06/22/18902 Last Action: Continued on 08/20/18920 by ROMI GOSS Ondansetron Hcl (Zofran) 4 Mg Tablet, 1 TAB PO Q6HRS for nausea/vomiting, #20 (Reported) Entered as Reported by: SELENE OLIVEIRA on 08/20/18823 Last Action: Converted on 08/20/18920 by ROMI GOSS Oxycodone Hcl/Acetaminophen (Oxycodone-Acetaminophen 10-325) 1 Each Tablet, 1 TAB PO Q4HRS for PAIN, #180 (Reported) Entered as Reported by: SHENG FAJARDO RN on 06/26/181812 Last Action: Continued on 08/20/18920 by ROMI GOSS Sevelamer Carbonate (Renvela) 800 Mg Tablet, 2 TAB PO TID for ESRD, #540 Ref 3 (Reported) Entered as Reported by: MORE HOWARD on 06/16/182203 Last Action: Continued on 08/20/18920 by ROMI GOSS Ticagrelor (Brilinta) 90 Mg Tablet, 90 MG PO BID for 30 Days, #60 Prescribed by: DAVID PINTO on 02/08/17 1338 Last Action: Continued on 08/20/18920 by ROMI GOSS Scheduled PRN Acetaminophen (Acetaminophen) 500 Mg Tablet, 650 MG PO Q6HRS PRN for PAIN, (Reported) Entered as Reported by: MORE HOWARD on 06/16/182203 Last Action: HELD on 08/20/18920 by ROMI GOSS Diphenhydramine Hcl (Diphenhydramine Hcl) 50 Mg Capsule, 1 CAP PO PRN Q8HRS PRN for ITCHING, #30 Ref 1 (Reported) Entered as Reported by: ROSEY DIOR on 03/09/181956 Last Action: Reviewed on 08/20/18807 by SELENE OLIVEIRA Docusate Sodium (Docusate Sodium) 100 Mg Capsule, 1 CAP PO Q8HRS PRN for CONSTIPATION, #30 (Reported) Entered as Reported by: KAMAR ROBIN on 12/05/14 184 Last Action: Continued on 08/20/18920 by ROMI GOSS Hydralazine Hcl (Hydralazine Hcl) 10 Mg Tablet, 1 TAB PO PRN TID PRN for HYPERTENSION, SEE COMMENTS, #60 Ref 3 (Reported) Entered as Reported by: ROSEY DIOR on 03/09/182010 Last Action: Converted on 08/20/18920 by ROMI GOSS Ipratropium/Albuterol Sulfate (Duoneb 0.5-3(2.5) Mg/3 Ml) 3 Ml Ampul.neb, 3 ML NEB QID PRN for shortness of breath, (Reported) Entered as Reported by: MORE HOWARD on 06/16/182203 Last Action: Continued on 08/20/18920 by ROMI GOSS Polyethylene Glycol 3350 (Miralax) 17 Gm Powd.pack, 1 PACKET PO Q 8HRS PRN for CONSTIPATION, #30 Ref 3 (Reported) Entered as Reported by: ROSEY DIOR on 03/09/182011 Last Action: Converted on 08/20/18920 by ROMI GOSS Prochlorperazine Maleate (Prochlorperazine Maleate) 10 Mg Tablet, 1 TAB PO PRN Q6HRS PRN for NAUSEA/VOMITING, #30 Ref 3 (Reported) Entered as Reported by: ROSEY DIOR on 03/09/181949 Last Action: Continued on 08/20/18920 by ROMI GOSS Sodium Chloride ([place] Saline) 50 Ml Greer, 1 SPRAY NS BID PRN for Congestion, #50 Ref 1 (Reported) Entered as Reported by: MORE HOWARD on 06/16/182203 Last Action: Converted on 08/20/18920 by ROMI GOSS Tramadol Hcl (Tramadol Hcl) 50 Mg Tablet, 50 MG PO Q4HRS PRN for HEADACHE MDD 1, #30 Prescribed by: DAVID PINTO on 06/22/18902 Last Action: HELD on 08/20/18920 by DAVID MENDOSA MD August 30, 2018 11:09
[2018-08-30 11:10] VITALS: BP 100/55
--- NOTE | 2018-08-30 12:50 | NUR ---
RAVI following pt. RAVI phoned and faxed orders to [facility] and [facility]. Pt will transport via facility arranged stretcher at 1400. Pt also completed AD form. Original notarized AD form and copies provided to pt. A copy placed on chart. IRINA RANDOLPH.
--- NOTE | 2018-08-30 14:20 | PDOC ---
Objective: Objective: No GI concerns per RN. Vital Signs: Vital Signs Date Time Temp Pulse Resp B/P (MAP) Pulse Ox O2 Delivery O2 Flow Rate FiO2 08/30/18 11:10 98.8 91 16 100/55 (70) 100 Room Air 98.8 08/30/18 10:39 8.0 Labs: Laboratory Tests Test 08/29/18 20:55 08/30/18 07:36 08/30/18 11:54 Glucose (Fingerstick) 115 mg/dL (70-99) 109 mg/dL (70-99) 96 mg/dL (70-99) PE: GEN: NAD - staff changing dressings NEURO/PSYCH: does not open eyes A/P: Sacral ulcer, bacteremia Chronic anemia, constipation, suspected gastroparesis -- Note plans for discharge. EDDY IGLESIAS August 30, 2018 14:20
--- NOTE | 2018-08-30 15:37 | NUR ---
Discharge Note: JAMAL [address]SE[address] [place] [address] Discharge instructions and discharge home medications reviewed with Ivette at [facility] and a copy given. All questions have been answered and understanding verbalized. The following instructions and handouts were given: transfer of care Discontinued lines and drains: no iv present. Patient discharged to [facility] via transport.
== END 2018-08-30 14:00 | disposition hospice, inpatient (51) | DRG 853 ==
LOC: ER 23:54 → 6 SOUTH 08-20 03:55
PROVIDERS: ADMIT Internal Medicine; ATTEND Internal Medicine
PROC: 5A1D70Z Performance of Urinary Filtration, Intermittent, Less than 6 Hours Per Day (ICD-10-PCS; 2018-08-21)
PROC: 5A1D70Z Performance of Urinary Filtration, Intermittent, Less than 6 Hours Per Day (ICD-10-PCS; 2018-08-24)
PROC: 5A1D70Z Performance of Urinary Filtration, Intermittent, Less than 6 Hours Per Day (ICD-10-PCS; 2018-08-26)
PROC: 0KBN0ZZ Excision of Right Hip Muscle, Open Approach (ICD-10-PCS; principal; 2018-08-27 11:30)
PROC: 5A1D70Z Performance of Urinary Filtration, Intermittent, Less than 6 Hours Per Day (ICD-10-PCS; 2018-08-28)
DX: A41.9 Sepsis, unspecified organism (principal); N18.6 End stage renal disease; I13.2 Hypertensive heart and chronic kidney disease with heart failure and with stage 5 chronic kidney disease, or end stage renal disease; F11.20 Opioid dependence, uncomplicated; I50.9 Heart failure, unspecified; L89.159 Pressure ulcer of sacral region, unspecified stage; B96.89 Other specified bacterial agents as the cause of diseases classified elsewhere; D63.1 Anemia in chronic kidney disease; E11.22 Type 2 diabetes mellitus with diabetic chronic kidney disease; E11.319 Type 2 diabetes mellitus with unspecified diabetic retinopathy without macular edema; E11.43 Type 2 diabetes mellitus with diabetic autonomic (poly)neuropathy; E11.51 Type 2 diabetes mellitus with diabetic peripheral angiopathy without gangrene; E11.69 Type 2 diabetes mellitus with other specified complication; E21.3 Hyperparathyroidism, unspecified; E78.5 Hyperlipidemia, unspecified; G47.00 Insomnia, unspecified; G47.30 Sleep apnea, unspecified; G89.29 Other chronic pain; H43.10 Vitreous hemorrhage, unspecified eye; H54.8 Legal blindness, as defined in USA; I25.10 Atherosclerotic heart disease of native coronary artery without angina pectoris; I48.91 Unspecified atrial fibrillation; J43.9 Emphysema, unspecified; K21.9 Gastro-esophageal reflux disease without esophagitis; K58.1 Irritable bowel syndrome with constipation; M79.7 Fibromyalgia; Z51.5 Encounter for palliative care; Z66 Do not resuscitate; Z79.02 Long term (current) use of antithrombotics/antiplatelets; Z79.4 Long term (current) use of insulin; Z79.82 Long term (current) use of aspirin; Z79.891 Long term (current) use of opiate analgesic; Z79.899 Other long term (current) drug therapy; Z82.49 Family history of ischemic heart disease and other diseases of the circulatory system; Z86.14 Personal history of Methicillin resistant Staphylococcus aureus infection; Z86.19 Personal history of other infectious and parasitic diseases; Z87.11 Personal history of peptic ulcer disease; Z88.1 Allergy status to other antibiotic agents; Z89.421 Acquired absence of other right toe(s); Z89.512 Acquired absence of left leg below knee; Z83.3 Family history of diabetes mellitus; M19.90 Unspecified osteoarthritis, unspecified site; Z90.711 Acquired absence of uterus with remaining cervical stump; Z91.19 Patient's noncompliance with other medical treatment and regimen; Z95.1 Presence of aortocoronary bypass graft; Z99.2 Dependence on renal dialysis; E66.9 Obesity, unspecified; F32.9 Major depressive disorder, single episode, unspecified; F41.9 Anxiety disorder, unspecified; E11.42 Type 2 diabetes mellitus with diabetic polyneuropathy; Z87.01 Personal history of pneumonia (recurrent); I25.2 Old myocardial infarction; Z88.2 Allergy status to sulfonamides; Z88.8 Allergy status to other drugs, medicaments and biological substances; Z91.018 Allergy to other foods; Z91.048 Other nonmedicinal substance allergy status
CPT/HCPCS: 36415; 71045; 74018; 80053; 80069; 80202; 82274; 82947; 82962; 83605; 83735; 84100; 84484; 85007; 85025; 87040; 87077; 87205; 87340; 87641; 93926; 94640; 94760; 96361; 96374; J0171; J0692; J0881; J1100; J1170; J1815; J2001; J2270; J2405; J2704; J3010; J3370; J7030; J7040; J7042; J7620; 99285-25; A4461